=== PATIENT | female | born 1960 | race Hispanic/Latino ===

== ENCOUNTER → 2017-10-26 | Outpatient (CLI) | payer MEDICARE ==
[~2017-10-26] MED LIST: AUGMENTIN 500-1 EACH PO; CARAFATE1 GM PO; CARVEDILOL3.125 MG PO; CLOPIDOGREL75 MG PO; CYCLOBENZAPRINE10 MG PO; CYMBALTA20 MG PO; DEPAKOTE ER500 MG PO; DICYCLOMINE HCL10 MG PO; DIVALPROEX SOD500 M1 PO; FLORASTOR250 MG PO; FLUDROCORTISON0.1 MG PO; GABAPENTIN300 MG PO; HUMALOG100 UNITS/ SC; LEVEMIR100 UNIT/1 SC; LIDODERM700 MG TOP; LISINOPRIL10 MG PO; LYRICA75 MG PO; MIDODRINE HCL2.5 MG PO; NEPHRO-VITE TABL1 EA PO; NEXIUM40 MG PO; NOVOLIN 70100 UNITS/ SQ; NOVOLOG MI100 UNIT/1 SC; ONDANSETRO4 MG/UDTAB PO; PANTOPRAZOLE SO40 MG PO; PEPCID20 MG PO; PHOSLO667 MG PO; PLAVIX75 MG PO; PROMETHAZINE HC25 M1 PO; PROMETHAZINE12.5 M1 PO; RENVELA0.8 GM PO; RENVELA800 MG PO; ROPINIROLE HC0.25 MG PO; ROPINIROLE HCL12 MG PO; SIMVASTATIN10 MG PO; SIMVASTATIN20 MG PO; SODIUM BICARBO650 MG PO; SUMATRIPTAN SUC25 MG PO; TRANSDERM-SCOP1 EACH TD; ULTRACET TABLE1 EACH PO; ULTRAM50 MG PO; VITAMIN D-32000 UNIT PO
--- NOTE | 2017-10-26 12:44 | Diagnostic Imaging Report ---
PROCEDURE:ANKLE 3+ VIEWS LEFT TECHNIQUE:AP, oblique, and lateral views of the left ankle INDICATION:Fracture followup COMPARISON:Left ankle radiographs 09/21/2017. FINDINGS: No significant interval change in healing or alignment since the distal left malleolus fracture. Healed fracture the medial malleolus is also grossly unchanged. Tibial plafond and talar dome are intact. No new fractures. Joint spaces and soft tissues are unremarkable. CONCLUSION: No significant interval change in healing or alignment of the incompletely healed lateral malleolar fracture compared to 09/21/2017. Dictated by: Steven Beltran M.D. on 10/26/2017 at 12:52 Electronically approved by: Steven Beltran M.D. on 10/26/2017 at 12:52
== END ==
LOC: RAD 12:00
PROVIDERS: ATTEND Podiatrist Foot & Ankle Surgery
DX: S82.62XD Displaced fracture of lateral malleolus of left fibula, subsequent encounter for closed fracture with routine healing (principal)

== ENCOUNTER → 2017-11-19 | Outpatient (CLI) | payer MEDICARE ==
[~2017-11-19] MED LIST changes: +CALCITRATE200 MG PO; +GEMFIBROZIL600 MG PO; +LABETALOL HCL100 MG PO; +NOVOLOG100 UNITS1 SQ; +OMEPRAZOLE40 MG PO; +TYLENOL WITH C1 EACH PO
--- NOTE | 2017-11-19 18:17 | Diagnostic Imaging Report ---
PROCEDURE:ANKLE 3+ VIEWS LEFT TECHNIQUE:3 views of the left ankle (AP, lateral, and oblique) INDICATION:Followup left ankle fracture. COMPARISON:Multiple priors, most recently 09/21/2018 and 10/26/2017. FINDINGS: Left distal malleolar fracture with no change in healing or alignment. Healed fracture of the medial malleolus, unchanged. No new fractures. Joint spaces are intact. Talar dome is intact. CONCLUSION: No significant interval change. Dictated by: Solomon López M.D. on 11/19/2017 at 18:26 Electronically approved by: Solomon López M.D. on 11/19/2017 at 18:26
== END ==
LOC: RAD 16:48
PROVIDERS: ATTEND Podiatrist Foot & Ankle Surgery
DX: S82.62XK Displaced fracture of lateral malleolus of left fibula, subsequent encounter for closed fracture with nonunion (principal)

== ENCOUNTER 2017-12-22 10:56 | Inpatient (IN) | payer MEDICARE ==
[~2017-12-22] VITALS: Ht 139.7 cm; Wt 81.6 kg
[~2017-12-22 10:56] MED LIST changes: -CALCITRATE200 MG PO; -GEMFIBROZIL600 MG PO; -LABETALOL HCL100 MG PO; -NOVOLOG100 UNITS1 SQ; -OMEPRAZOLE40 MG PO; -TYLENOL WITH C1 EACH PO
--- OUTSIDE RECORDS SUMMARY | 2017-12-22 10:58 | XMS REPORT ---
Author Author [facility] Address Unknown Phone Unavailable Care Team Providers Care Smocker Name Role Phone VICKY CABALLERO Unavailable Unavailable FARAZ BUSTILLO Unavailable Unavailable ANDREW JEREZ Unavailable Unavailable Problems This patient has no known problems. Allergies, Adverse Reactions, Alerts This patient has no known allergies or adverse reactions. Medications This patient has no known medications. Results Test Description Test Time Test Comments Text Results Atomic Results Result Comments ANKLE 3+ VIEWS LEFT [place] [address] Patient Name: TAI GRANT MR #: [id number] : 1960 Age/Sex: 57/F Req #: [id number] Adm Physician: Ordered by: VICKY CABALLERO DPM Report #: [id number] Location: [facility] Room/Bed: Procedure: [id number] DX/ANKLE 3+ VIEWS LEFT Exam Date: 11/19/17 Exam Time: 1705 REPORT STATUS: Signed PROCEDURE: ANKLE 3+ VIEWS LEFT TECHNIQUE: 3 views of the left ankle (AP, lateral, and oblique) INDICATION: Followup left ankle fracture. COMPARISON: Multiple priors, most recently 09/21/2018 and 10/26/2017. FINDINGS: Left distal malleolar fracture with no change in healing or alignment. Healed fracture of the medial malleolus, unchanged. No new fractures. Joint spaces are intact. Talar dome is intact. CONCLUSION: No significant interval change. Dictated by: Benny López M.D. on 11/19/2017 at 18:26 Electronically approved by: Benny López M.D. on 11/19/2017 at 18:26 Dictated By: BENNY LÓPEZ MD 25 Transcribed By: EVELYNE on 11/19/171825 COPY TO: VICKY CABALLERO DPM ANKLE 3+ VIEWS LEFT [place] [address] Patient Name: TAI GRANT MR #: [id number] : 1960 Age/Sex: 57/F Req #: [id number] Adm Physician: Ordered by: VICKY CABALLERO DPM Report #: [id number] Location: [facility] Room/Bed: Procedure: [id number] DX/ANKLE 3+ VIEWS LEFT Exam Date: 10/26/17 Exam Time: 1230 REPORT STATUS: Signed PROCEDURE: ANKLE 3+ VIEWS LEFT TECHNIQUE: AP, oblique, and lateral views of the left ankle INDICATION: Fracture followup COMPARISON: Left ankle radiographs 09/21/2017. FINDINGS: No significant interval change in healing or alignment since the distal left malleolus fracture. Healed fracture the medial malleolus is also grossly unchanged. Tibial plafond and talar dome are intact. No new fractures. Joint spaces and soft tissues are unremarkable. CONCLUSION : No significant interval change in healing or alignment of the incompletely healed lateral malleolar fracture compared to 09/21/2017. Dictated by: Steven Toussaint M.D. on 10/26/2017 at 12:52 Electronically approved by: Steven Toussaint M.D. on 10/26/2017 at 12:52 Dictated By: STEVEN TOUSSAINT MD 125 COPY TO: VICKY CABALLERO DPM ANKLE 3+ VIEWS LEFT [place] [address] Patient Name: TAI GRANT MR #: [id number] : 1960 Age/Sex: 57/F Req #: [id number] Adm Physician: Ordered by: VICKY CABALLERO DPM Report #: [id number] Location: [facility] Room/Bed: Procedure: [id number] DX/ANKLE 3+ VIEWS LEFT Exam Date: 09/21/17 Exam Time: 0940 REPORT STATUS: Signed PROCEDURE: ANKLE 3+ VIEWS LEFT INDICATION: Trauma COMPARISON: Bilateral ankle radiographs 08/27/2017. FINDINGS: No appreciable interval change in the appearance of the previously described incompletely healed fracture of the distal aspect of the lateral malleolus. Healed fracture of the medial malleolus is similarly unchanged. The tibial plafond and talar dome are intact. Joint spaces and soft tissues are unremarkable. CONCLUSION: Incompletely healed fracture of the distal aspect of the lateral malleolus is unchanged in appearance relative to 08/27/2017. Dictated by: Orlin Leung M.D. on 09/21/2017 at 10:26 Electronically approved by: Orlin Leung M.D. on 09/21/2017 at 10:26 Dictated By: ORLIN LEUNG MD 1026 Transcribed By: EVELYNE on 09/21/17 1026 COPY TO: VICKY CABALLERO DPM ANKLE COMPLETE BILATERAL [place] [address] Patient Name: TAI GRANT MR #: [id number] : 1960 Age/Sex: 57/F Req #: [id number] Adm Physician: Ordered by: VICKY CABALLERO DPM Report #: [id number] Location: [facility] Room/Bed: Procedure: [id number] DX/ANKLE COMPLETE BILATERAL Exam Date: 08/27/17 Exam Time: 1220 REPORT STATUS: Signed PROCEDURE: ANKLE COMPLETE BILATERAL TECHNIQUE: INDICATION: Pain. COMPARISON: Left Ankle 3 views 11/05/2016. FINDINGS: Remote trauma of the medial malleolus and lateral malleolus of the left ankle. Fracture line is still visualized in the distal left fibula, best visualized on the oblique projection No acute displaced fracture or dislocation. No expansile or lytic or sclerotic lesion. The soft tissues are unremarkable. CONCLUSION: Remote trauma of the left ankle. Persistent visualization of the distal fibula fracture line may represent nonunion. No acute displaced fracture. Dictated by: Jace Yusuf M.D. on 2016 at 13:27 Electronically approved by: Jace Yusuf M.D. on 2016 at 13:27 Dictated By: JACE YUSUF MD 1327 Transcribed By: EVELYNE on 08/27/17 1327 COPY TO: VICKY CABALLERO DPM CHEST 2 VIEWS [place] [address] Patient Name: TAI GRANT MR #: [id number] : 1960 Age/Sex: 57/F Req #: [id number] Adm Physician: Ordered by: FARAZ BUSTILLO MD Report #: [id number] Location: ER Room/Bed: Procedure: [id number] DX/CHEST 2 VIEWS Exam Date: 06/21/17 Exam Time : 1936 REPORT STATUS: Signed EXAM: Chest x-ray portable, AP DATE: June 21, 2017 Time stamp on exam: 1937 hours INDICATION: Shortness of breath , weakness COMPARISON: None available A preliminary report was provided by Dr. Stack June 21, 2017 at 2033 hours. FINDINGS: LINES/TUBES: None LUNGS: Bibasilar atelectasis, mild bronchial thickening and vascular congestion PLEURA: No effusions or pneumothorax. HEART AND MEDIASTINUM : The heart is at the upper limits of normal in size. BONES AND SOFT TISSUES: No acute findings. IMPRESSION: Bibasilar atelectasis, mild bronchial thickening and vascular congestion. Signed by: Dr. Cj Stack M.D. on 07/06/2017 10:58 PM Dictated By: CJ STACK MD 57 Transcribed By: ROBI on 07/06/172257 COPY TO: FARAZ BUSTILLO MD SP LUMBAR, COMPLETE MIN 4VW [place] [address] Patient Name: TAI GRANT MR #: [id number] : 1960 Age/Sex: 57/F Req #: [id number] Adm Physician: Ordered by: MERI LEE, ANDREW Ron MD Report #: [id number] Location: RAD Room/Bed: ____ Procedure: [id number] DX/SP LUMBAR, COMPLETE MIN 4VW Exam Date: Exam Time: 913 REPORT STATUS: Signed PROCEDURE: SP LUMBAR, COMPLETE MIN 4VW TECHNIQUE: AP, lateral, coned-down lateral and bilateral oblique views lumbar spine. INDICATION: Low back pain COMPARISON: [facility], CT, CT ABDOMEN/PELVIS W, 2015, 9:43. [facility], DX, LUMBAR 3 VIEW, 11/05/2016, 21:59. FINDINGS: 5 [id number] lumbar vertebral bodies. Vertebral body height is maintained. There are mild endplate degenerative changes from L1- L5 with relative preservation of disc space height. Facets are patent, without significant arthropathy. Patent neural foramen. Straightening of the spine, with loss of normal cervical lordosis. Regional skeleton is intact. Cholecystectomy clips. Right kidney embolization coils. CONCLUSION: 1. Mild multilevel degenerative disc disease. 2. Loss of normal cervical lordosis. Dictated by: Danni Nathan M.D. on 06/15/2017 at 10: 04 Electronically approved by: Danni Nathan M.D. on 06/15/2017 at 10:04 Dictated By: DANNI NATHAN MD 1004 Transcribed By: EVELYNE on 06/15/17 1004 COPY TO: ANDREW JEREZ
--- OUTSIDE RECORDS SUMMARY | 2017-12-22 10:58 | XMS REPORT | Clinical Summary ---
Author Author [facility] Organization [facility] Address Unknown Phone Unavailable Care Team Providers Care Operations Manager Station Name Role Phone Theodore Patten MD PCP Allergies Active Allergy Reactions Severity Noted Date Comments Nifedipine Anaphylaxis High 12/14/2016 Current Medications Prescription Sig. Disp. Refills Start End Date Status Date clopidogrel (PLAVIX) 75 Take 75 mg by mouth every 11/03/19 Active mg tablet morning. 17 divalproex (DEPAKOTE) 500 Take 500 mg by mouth 11/21/19 Active MG 24 hr tablet nightly. 17 cyclobenzaprine Take 5 mg by mouth 3 10/19/20 Active (FLEXERIL) 5 mg tablet (three) times a day as 16 needed for muscle spasms. ergocalciferol (VITAMIN Take 50,000 Units by Active D2) 50,000 unit capsule mouth once a week. metoclopramide (REGLAN) 5 Take 5 mg by mouth 3 Active MG tablet (three) times a day before meals. calcium acetate (PHOSLO) Take 1,334 mg by mouth 3 Active 667 mg capsule (three) times a day with meals. lidocaine (LIDODERM) 5 % Place 1 patch on the skin Active daily. Remove & Discard patch within 12 hours or as directed by midsloanerine (PROAMATINE) 10 Take 10 mg by mouth 3 Active MG tablet (three) times a week. Take on Wednesday, Wednesday and Wednesday for Low BP during dialysis traMADol (ULTRAM) 50 mg Take 50 mg by mouth every Active tablet 6 (six) hours as needed (Pain). ondansetron (ZOFRAN) 4 MG Take 4 mg by mouth every Active tablet 6 (six) hours as needed for nausea or vomiting. clonIDINE (CATAPRES) 0.1 Take 0.1 mg by mouth Active MG tablet every 4 (four) hours as needed for high blood pressure (SBP > 170 or DBP > 110). dicyclomine (BENTYL) 10 Take 10 mg by mouth daily Active MG capsule as needed (abdominal cramps). MYRBETRIQ 25 mg tablet Take 25 mg by mouth 12/19/19 Active extended release 24 hr nightly. 17 acetaminophen-codeine Take 1 tablet by mouth 11/06/19 Active (TYLENOL WITH CODEINE #3) every 6 (six) hours as 17 300-30 mg per tablet needed for pain. esomeprazole (NexIUM) 40 Take 40 mg by mouth daily 11/03/19 Active MG capsule before breakfast. 17 gabapentin (NEURONTIN) Take 300 mg by mouth 2 11/21/19 Active 300 mg capsule (two) times a day. 17 rOPINIRole (REQUIP) 0.25 Take 0.25 mg by mouth 3 10/06/20 Active MG tablet (three) times a day. 16 estradiol (ESTRACE) 0.5 Take 0.5 mg by mouth 12/21/19 Discontin MG tablet every morning. 17 ued dkrfmivstk-otvlojq-K-mefo Take 1 Dose by mouth 12/21/19 Discontin late (L-METHYL-MC NAC) daily with lunch. 17 ued 600-2-6 mg tablet dronabinol (MARINOL) 2.5 Take 2.5 mg by mouth 3 12/21/19 Discontin MG capsule (three) times a week. 17 ued Wednesday, Wednesday and Wednesday progesterone (PROMETRIUM) Take 100 mg by mouth 12/21/19 Discontin 100 MG capsule every evening. 17 ued nicotine (NICODERM CQ) 7 Place 1 patch on the skin 12/21/19 Discontin mg/24 hr daily. 17 ued pantoprazole (PROTONIX) Take 40 mg by mouth every 12/21/19 Discontin 40 MG EC tablet morning. 17 ued amLODIPine (NORVASC) 5 mg Take 5 mg by mouth every 12/21/19 Discontin tablet morning. 17 ued alpha lipoic acid 100 mg Take 100 mg by mouth 2 12/29/19 Discontin capsule (two) times a day with 17 ued meals. sevelamer (RENVELA) 800 Take 1,600 mg by mouth 2 12/29/19 Discontin mg tablet (two) times a day with 17 ued meals. epoetin shilpi (PROCRIT) Inject 3,000 Units under 12/21/19 Discontin 3,000 unit/mL injection the skin 3 (three) times 17 ued a week. With dialysis krill oil 500 mg capsule Take 500 mg by mouth 2 12/21/19 Discontin (two) times a day. 17 ued melatonin 3 mg tablet Take 6 mg by mouth 12/21/19 Discontin nightly. 17 ued acetaminophen (TYLENOL) Take 650 mg by mouth 12/21/19 Discontin 325 MG tablet every 4 (four) hours as 17 ued needed for mild pain or fever. alum-mag hydroxide-simeth Take 30 mL by mouth 4 12/21/19 Discontin (MAALOX) 200-200-20 mg/5 (four) times a day before 17 ued mL suspension meals and nightly. loperamide (IMODIUM) 2 mg Take 2 mg by mouth 4 12/21/19 Discontin capsule (four) times a day as 17 ued needed for diarrhea. magnesium hydroxide 400 Take 30 mL by mouth 4 12/21/19 Discontin mg/5 mL suspension (four) times a day as 17 ued needed (Constipation). bisacodyl (DULCOLAX) 5 mg Take 10 mg by mouth daily 12/21/19 Discontin EC tablet as needed for 17 ued constipation. ketoconazole (NIZORAL) 2 Apply 1 application 12/21/19 Discontin % shampoo topically daily. Apply to 17 ued damp skin, lather, leave on 5 minutes, and rinse insulin lispro (HumaLOG) Inject 0-8 Units under 12/21/19 Discontin 100 unit/mL injection the skin 3 (three) times 17 ued a day before meals. SS BS 150 - 179=0 units BS 180 - 250=2 units BS 251 - 300=4 units BS 301 - 350=6 units BS 351 - 400=8 units NOVOLOG MIX 70-30 100 Inject 26 Units under the 10/20/20 12/29/19 Discontin unit/mL (70-30) injection skin 3 (three) times a 16 17 ued day before meals. LEVEMIR 100 unit/mL Inject 16 Units under the 10/20/20 12/29/19 Discontin injection skin every morning. 60 16 17 ued units @ bedtime HYDROcodone-acetaminophen Take 1 tablet by mouth 12/19/19 12/21/19 Discontin (NORCO) 7.5-325 mg per every 8 (eight) hours as 17 17 ued tablet needed for moderate pain (score 4-6). levothyroxine (SYNTHROID, Take 100 mcg by mouth 12/19/19 12/21/19 Discontin LEVOXYL) 100 mcg tablet daily before breakfast. 17 17 ued metoprolol tartrate Take 25 mg by mouth daily 12/19/19 12/21/19 Discontin (LOPRESSOR) 25 mg tablet before breakfast. 17 17 ued LYRICA 75 mg capsule Take 75 mg by mouth 2 11/03/19 12/29/19 Discontin (two) times a day. 17 17 ued sertraline (ZOLOFT) 50 MG Take 50 mg by mouth daily 12/19/19 12/21/19 Discontin tablet before breakfast. 17 17 ued amlodipine-benazepril Take 1 capsule by mouth 10/06/20 12/29/19 Discontin (LOTREL 5-20) 5-20 mg per every morning. 16 17 ued capsule insulin lispro (HumaLOG) Inject 0-5 Units under 10 mL 12 12/29/19 100 unit/mL injection the skin 3 (three) times 17 17 a day before meals for 30 days. Active Problems Problem Noted Date Hypotension 12/21/2016 Encounters Date Type Specialty Care Team Description 12/21/2016 [facility] General Surgery Willy Frye MD Hypotension, unspecified - Encounter Mariam Young MD hypotension type (Primary 12/28/2016 Dx) after 12/21/2016 Family History Medical History Relation Name Comments Diabetes Brother Heart attack Father Aneurysm Mother Cataracts Mother Heart attack Mother Diabetes Sister Heart attack Sister Relation Name Status Comments Brother Father Mother Sister Social History Tobacco Use Types Packs/Day Years Used Date Never Smoker Alcohol Use Drinks/Week oz/Week Comments No Sex Assigned at Date Recorded Not on file Last Filed Vital Signs Vital Sign Reading Time Taken Blood Pressure 143/67 12/28/2016 4:48 PM [facility] Pulse 81 12/28/2016 4:48 PM [facility] Temperature 36.8 C (98.2 F) 12/28/2016 4:48 PM [facility] Respiratory Rate 20 12/28/2016 4:48 PM [facility] Oxygen Saturation 100% 12/28/2016 4:48 PM [facility] Inhaled Oxygen - - Concentration Weight 72.6 kg (160 lb) 12/22/2016 9:00 AM [facility] Height 144.8 cm (4' 9") 12/22/2016 9:00 AM [facility] Body Mass Index 34.62 12/22/2016 9:00 AM [facility] Plan of Treatment Health Maintenance Due Date Last Done Comments PAP SMEAR 1983 COLONOSCOPY 2012 MAMMOGRAM 2012 INFLUENZA VACCINE 05/25/2017 Procedures Procedure Name Priority Date/Time Associated Diagnosis Comments HEMODIALYSIS Routine 12/28/2016 12:05 AM [facility] HEMODIALYSIS Routine 12/25/2016 12:05 AM [facility] HEMODIALYSIS Routine 12/23/2016 1:50 PM [facility] HEMODIALYSIS Routine 12/23/2016 11:21 AM [facility] after 12/21/2016 Results * POC glucose (12/28/2016 4:53 PM) Only the most recent of 27 results within the time period is included. Component Value Ref Range POC glucose 137 (H) 65 - 99 mg/dL Comment: Meter ID: [id number] Medical Chief Technician: Da Bustillos Specimen Performing Laboratory [facility] DEPARTMENT OF PATHOLOGY AND GENOMIC MEDICINE [address] [place] [address] * Estimated GFR (12/28/2016 6:00 AM) Only the most recent of 8 results within the time period is included. Component Value Ref Range GFR Non Af Amer 6 (A) mL/min/1.73 m2 GFR Af Amer 7 (A) mL/min/1.73 m2 Comment: Chronic kidney disease: <60 mL/min/1.73m2 Kidney failure: <15 mL/min/1.73m2 The estimated GFR is calculated from the IDMS-traceable Modification of Diet in Renal Disease Equation. The accuracy of the calculation is poor when the creatinine is normal. Calculated values >90 mL/min/1.73m2 are not reported. This equation has not been validated in children (<18 years), women, the elderly (>70 years), or ethnic groups other than Caucasians and Americans. Specimen Performing Laboratory Plasma specimen [facility] DEPARTMENT OF PATHOLOGY AND GENOMIC MEDICINE [address] [place] [address] * CBC with platelet and differential (12/28/2016 6:00 AM) Only the most recent of 7 results within the time period is included. Component Value Ref Range WBC 7.98 4.50 - 11.00 k/uL RBC 2.77 (L) 4.20 - 5.50 m/uL HGB 8.5 (L) 12.0 - 16.0 g/dL HCT 26.1 (L) 37.0 - 47.0 % MCV 94.2 82.0 - 100.0 fL MCH 30.7 27.0 - 34.0 pg MCHC 32.6 31.0 - 37.0 g/dL RDW - SD 48.8 37.0 - 55.0 fL MPV 9.2 8.8 - 13.2 fL Platelet count 208 150 - 400 k/uL Nucleated RBC 0.00 /100 WBC Neutrophils 69.3 (H) 39.0 - 69.0 % Lymphocytes 16.2 (L) 25.0 - 45.0 % Monocytes 8.1 0.0 - 10.0 % Eosinophils 4.5 0.0 - 5.0 % Basophils 0.3 0.0 - 1.0 % Immature granulocytes 1.6 (H)Comment: "Immature granulocytes" 0.0 - 1.0 % (promyelocytes, myelocytes, metamyelocytes) Specimen Performing Laboratory Blood [facility] DEPARTMENT OF PATHOLOGY AND GENOMIC MEDICINE [address] [place] [address] * Basic metabolic panel (12/28/2016 6:00 AM) Only the most recent of 4 results within the time period is included. Component Value Ref Range Sodium 135 135 - 148 mEq/L Potassium 6.2 (HH) 3.5 - 5.0 mEq/L Comment: Results called to and read back by KRISTAL MCCORMICK , 3 SURG at 12/28/2016 07:00 by DP. Chloride 97 (L) 98 - 112 mEq/L CO2 24 24 - 31 mEq/L Anion gap 14 7 - 15 mEq/L Comment: Starting from January , anion gap calculation no longer incorporates potassium. Please note the change. BUN 49 (H) 6 - 20 mg/dL Creatinine 7.3 (H) 0.5 - 0.9 mg/dL Glucose 104 (H) 65 - 99 mg/dL Calcium 7.8 (L) 8.3 - 10.2 mg/dL Specimen Performing Laboratory Plasma specimen [facility] DEPARTMENT OF PATHOLOGY AND GENOMIC MEDICINE [address] [place] [address] * Phosphorus level (12/26/2016 5:00 AM) Only the most recent of 5 results within the time period is included. Component Value Ref Range Phosphorus 2.6 2.4 - 4.5 mg/dL Specimen Performing Laboratory Plasma specimen [facility] DEPARTMENT OF PATHOLOGY AND GENOMIC [facility] [address] [place] [address] * Magnesium level (12/26/2016 5:00 AM) Only the most recent of 4 results within the time period is included. Component Value Ref Range Magnesium 2.1 1.6 - 2.6 mg/dL Specimen Performing Laboratory Plasma specimen [facility] DEPARTMENT OF PATHOLOGY AND [facility] [address] [place] [address] * CT Chest Wo Contrast Abdomen Wo Contrast Pelvis Wo Contrast (12/25/2016 3:30 PM) Specimen Performing Laboratory [facility] [address] [place] [address] Narrative EXAMINATION:CT CHEST WO CONTRAST ABDOMEN WO CONTRAST PELVIS WO CONTRAST CLINICAL HISTORY: 56 years FemaleABDOMINAL PAIN TECHNIQUE:Multiple axial images of the chest, abdomen, and pelvis were obtained without intravenous contrast. The lack of intravenous contrast reduces the sensitivity of detecting solid organ disease. Sagittal and coronal computerized reformatted images were obtained. CT imaging was performed with iterative reconstruction techniques and/or automated exposure control to reduce radiation dose. COMPARISON:December 24, 2016 FINDINGS: There is abundant mediastinal fat. A left anterior mediastinal node measuring 7 mm in short axis is present. A right paratracheal node with a central fatty hilum measuring 9 mm in short axis is present. There is coronary artery calcification. Heart size is within normal limits. The distal esophagus appears mildly dilated. The peggy are not well assessed without contrast. The right hilum appears mildly prominent. The lungs demonstrate atelectasis at both lung bases with groundglass opacity in the right lower lobe and a small nodular opacity measuring approximately 7 mm in maximum dimension. Follow-up will be needed. There is also dependent scarring or atelectasis. Some thickening along the right major fissure is present and mild pleural thickening and nodularity in both posterior costophrenic sulci is present greater on the left where an approximately 7 mm and adjacent 4 mm opacity is noted no additional findings of significance are visualized. IMPRESSION: 1. 7 mm vague groundglass density along the major fissure adjacent is appears segment of the right lower lobe. 2. Mild bibasilar mainly atelectasis greater on the left with mild pleural changes on both sides probably mainly atelectatic follow-up to ensure clearing is recommended. 3. Minimal pleural fluid or pleural thickening on the left. CT abdomen and pelvis: Done without intravenous or gastrointestinal contrast: The liver and spleen appear large the spleen measures approximately 16 to 17 cm in length the liver approximately 20 cm in length. Both are homogeneous in texture. The adrenal glands appear within normal limits. The pancreas appears unremarkable. There are postop changes in the stomach. There are clips in the gallbladder fossa. The kidneys demonstrate a nonobstructing upper pole calculus on the left in the 3 to 4 mm range. Multiple metallic densities project within the collecting system on the right no obstruction is identified on either side. The appendix is not visualized. No inflammatory changes are identified involving bowel. There is no evidence of bowel obstruction. There is scattered diverticulosis involving the colon. The uterus and ovaries appear unremarkable. No free fluid is noted. The bladder wall appears mildly thickened. IMPRESSION: 1. Hepatosplenomegaly. 2. No acute findings in the abdomen are identified. Pole metallic densities in the right renal hilum are noted. No obstruction is noted. 3. Nonobstructing left intrarenal calculus [id number] Procedure Note Hm Interface, Radiology Results Incoming - 12/25/2016 4:00 PM [facility] EXAMINATION: CT CHEST WO CONTRAST ABDOMEN WO CONTRAST PELVIS WO CONTRAST CLINICAL HISTORY: 56 years Female ABDOMINAL PAIN TECHNIQUE: Multiple axial images of the chest, abdomen, and pelvis were obtained without intravenous contrast. The lack of intravenous contrast reduces the sensitivity of detecting solid organ disease. Sagittal and coronal computerized reformatted images were obtained. CT imaging was performed with iterative reconstruction techniques and/or automated exposure control to reduce radiation dose. COMPARISON: December 24, 2016 FINDINGS: There is abundant mediastinal fat. A left anterior mediastinal node measuring 7 mm in short axis is present. A right paratracheal node with a central fatty hilum measuring 9 mm in short axis is present. There is coronary artery calcification. Heart size is within normal limits. The distal esophagus appears mildly dilated. The peggy are not well assessed without contrast. The right hilum appears mildly prominent. The lungs demonstrate atelectasis at both lung bases with groundglass opacity in the right lower lobe and a small nodular opacity measuring approximately 7 mm in maximum dimension. Follow-up will be needed. There is also dependent scarring or atelectasis. Some thickening along the right major fissure is present and mild pleural thickening and nodularity in both posterior costophrenic sulci is present greater on the left where an approximately 7 mm and adjacent 4 mm opacity is noted no additional findings of significance are visualized. IMPRESSION: 1. 7 mm vague groundglass density along the major fissure adjacent is appears segment of the right lower lobe. 2. Mild bibasilar mainly atelectasis greater on the left with mild pleural changes on both sides probably mainly atelectatic follow-up to ensure clearing is recommended. 3. Minimal pleural fluid or pleural thickening on the left. CT abdomen and pelvis: Done without intravenous or gastrointestinal contrast: The liver and spleen appear large the spleen measures approximately 16 to 17 cm in length the liver approximately 20 cm in length. Both are homogeneous in texture. The adrenal glands appear within normal limits. The pancreas appears unremarkable. There are postop changes in the stomach. There are clips in the gallbladder fossa. The kidneys demonstrate a nonobstructing upper pole calculus on the left in the 3 to 4 mm range. Multiple metallic densities project within the collecting system on the right no obstruction is identified on either side. The appendix is not visualized. No inflammatory changes are identified involving bowel. There is no evidence of bowel obstruction. There is scattered diverticulosis involving the colon. The uterus and ovaries appear unremarkable. No free fluid is noted. The bladder wall appears mildly thickened. IMPRESSION: 1. Hepatosplenomegaly. 2. No acute findings in the abdomen are identified. Pole metallic densities in the right renal hilum are noted. No obstruction is noted. 3. Nonobstructing left intrarenal calculus [id number] * XR Chest 1 Vw Portable (12/24/2016 5:38 PM) Only the most recent of 4 results within the time period is included. Specimen Performing Laboratory [facility] [address] [place] [address] Narrative EXAMINATION:XR CHEST 1 VW PORTABLE CLINICAL HISTORY:Increased Respiratory Distress COMPARISON:December 23, 2016 IMPRESSION: There is a right IJ catheter with its tip spur vena cava.There is cardiomegaly.Mediastinum is slightly widened.Pulmonary vessels are minimally prominent but there is no infiltrate. [facility]-[id number] Procedure Note Hm Interface, Radiology Results Incoming - 12/24/2016 5:44 PM [facility] EXAMINATION: XR CHEST 1 VW PORTABLE CLINICAL HISTORY: Increased Respiratory Distress COMPARISON: December 23, 2016 IMPRESSION: There is a right IJ catheter with its tip spur vena cava. There is cardiomegaly. Mediastinum is slightly widened. Pulmonary vessels are minimally prominent but there is no infiltrate. [facility]-[id number] * Troponin (12/24/2016 5:25 AM) Only the most recent of 5 results within the time period is included. Component Value Ref Range Troponin <0.300 0.000 - 0.300 ng/mL Comment: 0.30 - 1.49 ng/ml May indicate increased risk of acute coronary syndrome. >=1.5 ng/ml Consistent with acute myocardial infarction. The diagnostic value of a single normal or non-diagnostic result is questionable. Serial samples at 2-6 hour intervals are required to rule out acute myocardial injury. Specimen Performing Laboratory Plasma specimen [facility] DEPARTMENT OF PATHOLOGY AND GENOMIC MEDICINE [address] [place] [address] * Comprehensive metabolic panel (12/24/2016 5:25 AM) Only the most recent of 4 results within the time period is included. Component Value Ref Range Sodium 141 135 - 148 mEq/L Potassium 4.1 3.5 - 5.0 mEq/L Chloride 100 98 - 112 mEq/L CO2 26 24 - 31 mEq/L Anion gap 15 7 - 15 mEq/L Comment: Starting from January , anion gap calculation no longer incorporates potassium. Please note the change. BUN 21 (H) 6 - 20 mg/dL Creatinine 4.6 (H) 0.5 - 0.9 mg/dL Glucose 110 (H) 65 - 99 mg/dL Calcium 6.8 (L) 8.3 - 10.2 mg/dL Protein 6.1 (L) 6.3 - 8.3 g/dL Comment: 4.6-7.0 g/dL 1 week 4.4-7.6 g/dL 7 months-1year 5.1-7.3 g/dL 1-2 years 5.6-7.5 g/dL >3 years 6.0-8.0 g/dL 18-150 6.3-8.3 g/dL Albumin 3.7 3.5 - 5.0 g/dL A/G ratio 1.5 0.7 - 3.8 Alkaline phosphatase 89 35 - 104 U/L AST 7 (L) 10 - 35 U/L ALT 7 5 - 50 U/L Total bilirubin 0.2 0.0 - 1.2 mg/dL Specimen Performing Laboratory Plasma specimen [facility] DEPARTMENT OF PATHOLOGY AND GENOMIC MEDICINE [address] [place] [address] * Blood culture, aerobic & anaerobic (12/23/2016 9:40 PM) Component Value Ref Range Blood culture isolate No growth after 5 days of incubation. Comment: Specimen Information Specimen Source: Blood Specimen Site: Line, Central Specimen Performing Laboratory Blood - Line, central [facility] DEPARTMENT OF PATHOLOGY AND GENOMIC MEDICINE [address] [place] [address] Narrative Collect before antibiotics given. Blood cultures should be ordered x2, with each set drawn from a different peripheral site.If unable to draw both sets from a peripheral site, one set may be drawn from a central line; an IV line should NEVER be used. * CT Head Wo Contrast (12/23/2016 8:15 PM) Specimen Performing Laboratory [facility] [address] [place] [address] Narrative EXAMINATION:CT HEAD WO CONTRAST CT IMAGING WAS PERFORMED WITH ITERATIVE RECONSTRUCTION TECHNIQUE AND/OR AUTOMATED EXPOSURE CONTROL TO REDUCE RADIATION DOSE. CLINICAL HISTORY:CONFUSION DELERIUMALTERED LOCUNEXPLAINED COMPARISON:CT brain 12/14/2016. FINDINGS: 1.There is no acute abnormality demonstrated. Specifically there is no hemorrhage, mass effect or acute infarction. 2. There are minimal if any nonspecific cerebral white matter microvascular changes. There is mild cerebral cortical volume loss. There is minimal atherosclerotic calcification in the distal internal carotid and vertebral arteries. 3.There is minimal mucosal thickening in the ethmoid and maxillary sinuses. IMPRESSION: No acute abnormality demonstrated and no change from December 14, 2016. [facility]-[id number] Procedure Note Interface, Radiology Results Incoming - 12/23/2016 8:23 PM [facility] [facility] EXAMINATION: CT HEAD WO CONTRAST CT IMAGING WAS PERFORMED WITH ITERATIVE RECONSTRUCTION TECHNIQUE AND/OR AUTOMATED EXPOSURE CONTROL TO REDUCE RADIATION DOSE. CLINICAL HISTORY: CONFUSION DELERIUM ALTERED LOC UNEXPLAINED COMPARISON: CT brain 12/14/2016. FINDINGS: 1.There is no acute abnormality demonstrated. Specifically there is no hemorrhage, mass effect or acute infarction. 2. There are minimal if any nonspecific cerebral white matter microvascular changes. There is mild cerebral cortical volume loss. There is minimal atherosclerotic calcification in the distal internal carotid and vertebral arteries. 3.There is minimal mucosal thickening in the ethmoid and maxillary sinuses. IMPRESSION: No acute abnormality demonstrated and no change from December 14, 2016. [facility]-[id number] * Lactic acid level (12/23/2016 5:45 PM) Component Value Ref Range Lactic acid 1.8 0.5 - 2.2 mmol/L Specimen Performing Laboratory Plasma specimen [facility] DEPARTMENT PATHOLOGY AND [address] [place] [address] * Arterial blood gas (12/23/2016 4:40 PM) Component Value Ref Range pH, arterial 7.45 7.35 - 7.45 pCO2, arterial 45 35 - 45 mmHg pO2, arterial 110 (H) 80 - 90 mmHg Bicarbonate, arterial 30.3 (H) 21.0 - 28.0 mmol/L Base excess, arterial 6 (H) -2 - 2 mEq/L O2 saturation, arterial 97 95 - 100 % Specimen Performing Laboratory Blood [facility] PATHOLOGY AND [address] [place] [address] * ECG 12 lead (12/23/2016 4:28 PM) Only the most recent of 2 results within the time period is included. Component Value Ref Range Ventricular rate 75 Atrial rate 75 OH interval 134 QRSD interval 84 QT interval 446 QTC interval 498 P axis 1 2 QRS axis 1 4 T wave axis 29 EKG impression Normal sinus rhythm-Prolonged QT-Abnormal ECG-In automated comparison with ECG of 21-DEC-2016 13:44,-QT has lengthened- Specimen Performing Laboratory [facility] MUSE [address] [place] [id number] * Hepatitis C antibody (12/23/2016 4:20 AM) Component Value Ref Range Hepatitis C Ab Non-reactive Non-reactive Specimen Performing Laboratory Blood [facility] DEPARTMENT PATHOLOGY AND [address] [place] [address] * Hepatitis B core antibody total (12/23/2016 4:20 AM) Component Value Ref Range Hepatitis B core total Ab Non-reactive Non-reactive Specimen Performing Laboratory Blood [facility] DEPARTMENT OF PATHOLOGY AND [facility] MEDICINE [address] [place] [id number] * Hepatitis B surface antibody (12/23/2016 4:20 AM) Component Value Ref Range Hepatitis B surface Ab Reactive (A) Non-reactive Specimen Performing Laboratory Blood [facility] DEPARTMENT OF PATHOLOGY AND GENOMIC MEDICINE [id number] [place] [address] [place] [id number] * Hepatitis B surface antigen (12/23/2016 4:20 AM) Component Value Ref Range Hepatitis B surface Ag Nonreactive Non-reactive Specimen Performing Laboratory Blood [facility] DEPARTMENT OF PATHOLOGY AND GENOMIC MEDICINE [id number] [place] [address] [place] [address] * Parathyroid hormone (12/23/2016 4:00 AM) Component Value Ref Range PTH 129 (H) 15 - 65 pg/mL Specimen Performing Laboratory Blood [facility] DEPARTMENT OF PATHOLOGY AND GENOMIC MEDICINE [address] [place] [address] [place] [id number] * Iron level (12/23/2016 4:00 AM) Component Value Ref Range Iron level 74 37 - 145 ug/dL Specimen Performing Laboratory Plasma specimen [facility] DEPARTMENT OF PATHOLOGY AND GENOMIC MEDICINE [id number] [place] [address] [place] [id number] * Ferritin level (12/23/2016 4:00 AM) Component Value Ref Range Ferritin level 1,088 (H) 13 - 150 ng/mL Specimen Performing Laboratory Plasma specimen [facility] DEPARTMENT OF PATHOLOGY AND GENOMIC MEDICINE [address] [place] [address] * ECG ED Preliminary Interpretation - NOT AN ORDER (12/22/2016 9:03 AM) Leeann Russ MD 12/22/20169:03 AM ECG ED Preliminary Interpretation - Not an Order Performed by: WILLY FRYE Authorized by: WILLY FRYE ECG reviewed by ED Physician in the absence of a theater company producer: yes Interpretation: Interpretation: normal Rate: ECG rate:69 ECG rate assessment: normal Rhythm: Rhythm: sinus rhythm QRS: QRS axis:Normal ST segments: ST segments:Non-specific T waves: T waves: normal * Creatine kinase, total (CPK) (12/21/2016 1:40 PM) Component Value Ref Range Creatine kinase 16 (L) 26 - 192 Specimen Performing Laboratory Blood [facility] DEPARTMENT OF PATHOLOGY AND GENOMIC MEDICINE [address] [place] [address] [place] [address] after 12/21/2016 Insurance Payer Benefit Subscriber ID Type Phone Address Plan / Group MEDICARE MEDICARE xxxxxxxxxx Medicare [place], [place] PART A AND B AARP AARP xxxxxxxxxxx [place] [address]
[2017-12-22] MEDS ORDERED: DEXTROSE 50% SYRINGE 50 ML IV STA (11:08)
[2017-12-22] MEDS ORDERED: SODIUM BICARBONATE 8.4% 50 ML VIAL IV STA (11:08)
[2017-12-22] MEDS ORDERED: ALBUTEROL SULF 0.083% NEB SOLN 3 ML NEB NEB STA (11:08)
[2017-12-22] MEDS ORDERED: INSULIN REGULAR, HUMAN 100 UNIT/1 ML 3ML VIAL IV ONE (11:15)
[2017-12-22] MEDS ORDERED: SODIUM BICARBONATE 8.4% INJ 50 ML SYR IV NR (11:30)
--- NOTE | 2017-12-22 12:10 | Diagnostic Imaging Report ---
PROCEDURE: CHEST SINGLE (PORTABLE) COMPARISON: 2 view chest 06/21/17 INDICATIONS: HYPERKALEMIA FINDINGS: Stable cardiomegaly. Pulmonary vascular markings are prominent, increased compared previous exam. Subtle ground glass opacities throughout each lung. No evidence of infiltrate. Costophrenic angles are sharp. No pneumothorax. No focal osseous lesions. CONCLUSION: Cardiomegaly and pulmonary vascular congestion. A component of pulmonary edema is suspected. Dictated by: Vibha Suarez M.D. on 12/22/2017 at 12:10 Electronically approved by: Vibha Suarez M.D. on 12/22/2017 at 12:10
[2017-12-22 12:11] LABS: BASOPHILS % 0.2 % (0.0-1.0); EOSINOPHILS # (AUTO) 0.2 (0.0-0.4); EOSINOPHILS % 3.2 % (0.0-6.0); LYMPHOCYTES # (AUTO) 0.9 (1.0-3.2); LYMPHOCYTES % 15.8 % (18.0-39.1); MEAN CORPUSCULAR HEMOGLOBIN 33.5 pg (28-32); MEAN CORPUSCULAR HGB CONC 30.8 g/dL (31-35); MEAN CORPUSCULAR VOLUME 108.8 fL (81-99); MONOCYTES # (AUTO) 0.6 (0.2-0.8); MONOCYTES % 10.6 % (4.4-11.3); NEUTROPHILS # (AUTO) 3.9 (2.1-6.9); PLATELET COUNT 147 x10e3/uL (140-360); RED BLOOD COUNT 1.94 x10e6/uL (3.6-5.1); RED CELL DISTRIBUTION WIDTH 19.5 % (11.7-14.4)
[2017-12-22 12:24] LABS: HEMOGLOBIN 6.5 g/dL (12.0-16.0)
[2017-12-22 12:25] LABS: HEMATOCRIT 21.1 % (34.2-44.1)
[2017-12-22 12:47] LABS: ALANINE AMINOTRANSFERASE 9 IU/L (0-55); ALBUMIN 3.3 g/dL (3.5-5.0); ALBUMIN/GLOBULIN RATIO 0.9 (0.8-2.0); ALKALINE PHOSPHATASE 149 IU/L (40-150); ANION GAP 21.6 mmol/L (8-16); BLOOD UREA NITROGEN 42 mg/dL (7-26); BUN/CREATININE RATIO 9 (6-25); CALCIUM 8.4 mg/dL (8.4-10.2); CARBON DIOXIDE 27 mmol/L (22-29); CHLORIDE 101 mmol/L (98-107); CREATINE KINASE 46 IU/L (29-168); CREATININE, SERUM 4.88 mg/dL (0.57-1.11); EST GLOMERULAR FILTRATION RATE 9 ML/MIN (60-); GLUCOSE 92 mg/dL (74-118); SODIUM 141 mmol/L (136-145)
[2017-12-22 12:54] LABS: POTASSIUM 8.6 mmol/L (3.5-5.1)
[2017-12-22] MEDS ORDERED: CALCIUM CHLORIDE 10% 1.36 MEQ/ML 10ML SYR IV STA (15:08)
[2017-12-22] MEDS ORDERED: SODIUM CHLORIDE 0.9% 250ML 250 ML IV ONE (15:45)
--- NOTE | 2017-12-22 16:36 | Consultation ---
DATE OF CONSULTATION: December 22, 2017 REASON FOR CONSULTATION: Hyperkalemia. Thank you for allowing us to participate in Ms. Avila's care. This is a 57-year-old female who has history of end-stage renal disease, presumed diabetic and hypertensive, end-organ damage, history of intermittent hyperkalemia. She was feeling poorly. Meanwhile, her dialysis unit near [facility]. called her to go to the ER siting high potassium. During evaluation here, K was 8.6, heart rate in the 60's currently, hemoglobin is 6.5. Dialysis unit staff has been contacted and pending treatment. She had some nausea and vomiting earlier. She has been dealing with chronic pain. I believe she is opiates. She is not sure exactly which. She also has restless leg syndrome and sees a pain specialist outside. 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 PAST MEDICAL HISTORY: Left upper extremity IV fistula. ESRD. Diabetic nephropathy. Hypertension. Nephrosclerosis. Anemia, presumably from CKD. Secondary hyperparathyroidism on binders. History of hypotension. Question migraines. HOME MEDICATIONS: 1. Coreg 3.125 daily b.i.d. 2. Plavix 75 daily. 3. Cyclobenzaprine 10 mg t.i.d. 4. Valproic acid 500 mg daily. 5. Cymbalta 20 mg daily 6. Nexium 40 mg daily. 7. Gabapentin 300 b.i.d. 8. Insulin. 9. Lisinopril 10 daily 10. Lyrica 75 daily. 11. Renvela 2.4 gram powder t.i.d. 12. Sumatriptan 25 mg daily. 13. Sodium bicarbonate 650 daily. SOCIAL HISTORY: Apparently not abusing alcohol or smoking. Lives in [facility]. FAMILY HISTORY: Hypertension. REVIEW OF SYSTEMS: CONSTITUTIONAL: Feels weak. NEUROLOGIC: Numbness and tingling in the hands. MUSCULOSKELETAL: Leg pain. CARDIAC: Denying angina or syncope. RESPIRATORY: Denies cough or hemoptysis. GI: No nausea or vomiting. The rest of the review is negative. PHYSICAL EXAMINATION GENERAL: Sitting up and appears slightly dyspneic. VITALS: Temperature is 97.4, pulse 61, blood pressure 135/67. HEENT: Slight facial puffiness. NECK: Thick, unable to see JVD. CHEST: Diminished breath sounds at the bases. CARDIAC: Normal heart tones. Sounds regular. ABDOMEN: Benign. EXTREMITIES: Trace edema. NEURO: Alert and appropriate. Speech is normal. Chest x-ray shows some congestion. Hemoglobin is 6.5, K is 8.6, serum CO2 of 27, creatinine 4.8, BUN 42, albumin 3.3. ASSESSMENT: 1. End-stage renal disease. 2. Hyperkalemia. 3. Severe anemia. 4. Fluid overload. PLAN: Hemodialysis on an urgent basis. with __2, potassium bath, Will transfuse 3 units of packed red blood cells. Request pain management evaluation. Consider stopping her lisinopril. Job#: [id number] GH MAME
--- OUTSIDE RECORDS SUMMARY | 2017-12-22 17:06 | XMS REPORT | Clinical Summary ---
Author Author [facility] Address Unknown Phone Unavailable Care Team Providers Care Nipple Maker Name Role Phone Theodore Patten MD PCP [...] Discontin MG tablet every morning. 17 ued [id number] Take 1 Dose by mouth 12/21/19 Discontin [...] Date Type Specialty Care Team Description 12/21/2016 [facility] General Surgery Willy Frye MD Hypotension, unspecified [...] Taken Blood Pressure 143/67 12/28/2016 4:48 PM CRANE OPERATOR CAB Pulse 81 12/28/2016 4:48 PM CRANE OPERATOR CAB Temperature 36.8 C (98.2 F) 12/28/2016 4:48 PM CRANE OPERATOR CAB Respiratory Rate 20 12/28/2016 4:48 PM CRANE OPERATOR CAB Oxygen Saturation 100% 12/28/2016 4:48 PM CRANE OPERATOR CAB Inhaled Oxygen - - Concentration Weight 72.6 kg (160 lb) 12/22/2016 9:00 AM CRANE OPERATOR CAB Height 144.8 cm (4' 9") 12/22/2016 9:00 AM CRANE OPERATOR CAB Body Mass Index 34.62 12/22/2016 9:00 AM CRANE OPERATOR CAB Plan of Treatment Health Maintenance Due Date Last Done Comments PAP SMEAR 1983 COLONOSCOPY 2012 MAMMOGRAM 2012 INFLUENZA VACCINE 05/25/2017 Procedures Procedure Name Priority Date/Time Associated Diagnosis Comments HEMODIALYSIS Routine 12/28/2016 12:05 AM CRANE OPERATOR CAB HEMODIALYSIS Routine 12/25/2016 12:05 AM CRANE OPERATOR CAB HEMODIALYSIS Routine 12/23/2016 1:50 PM CRANE OPERATOR CAB HEMODIALYSIS Routine 12/23/2016 11:21 AM CRANE OPERATOR CAB after 12/21/2016 Results * POC glucose (12/28/2016 4:53 PM) Only the most recent of 27 results within the time period is included. Component Value Ref Range POC glucose 137 (H) 65 - 99 mg/dL Comment: Meter ID: [id number] Elder Assistant: Da Bustillos Specimen Performing Laboratory [facility] DEPARTMENT OF PATHOLOGY AND GENOMIC MEDICINE [address] [place] [address] * Estimated GFR (12/28/2016 6:00 AM) Only [...] and Americans. Specimen Performing Laboratory Plasma specimen [facility] DEPARTMENT OF PATHOLOGY AND GENOMIC MEDICINE [address] [place] [address] * CBC with platelet and differential (12/28/2016 [...] (promyelocytes, myelocytes, metamyelocytes) Specimen Performing Laboratory Blood [facility] DEPARTMENT OF PATHOLOGY AND GENOMIC MEDICINE [address] [place] [address] * Basic metabolic panel (12/28/2016 6:00 AM) [...] 10.2 mg/dL Specimen Performing Laboratory Plasma specimen [facility] DEPARTMENT OF PATHOLOGY AND GENOMIC MEDICINE [address] [place] [address] * Phosphorus level (12/26/2016 5:00 AM) Only the most recent of 5 results within the time period is included. Component Value Ref Range Phosphorus 2.6 2.4 - 4.5 mg/dL Specimen Performing Laboratory Plasma specimen [facility] DEPARTMENT OF PATHOLOGY AND GENOMIC [facility] [address] [place] [address] * Magnesium level (12/26/2016 5:00 AM) Only the most recent of 4 results within the time period is included. Component Value Ref Range Magnesium 2.1 1.6 - 2.6 mg/dL Specimen Performing Laboratory Plasma specimen [facility] DEPARTMENT OF PATHOLOGY AND [facility] [address] [place] [address] * CT Chest Wo Contrast Abdomen Wo Contrast Pelvis Wo Contrast (12/25/2016 3:30 PM) Specimen Performing Laboratory [facility] [address] [place] [address] Narrative EXAMINATION:CT CHEST WO CONTRAST ABDOMEN WO [...] is noted. 3. Nonobstructing left intrarenal calculus [id number] Procedure Note Hm Interface, Radiology Results Incoming - 12/25/2016 4:00 PM CRANE OPERATOR CAB EXAMINATION: CT CHEST WO CONTRAST ABDOMEN WO [...] is noted. 3. Nonobstructing left intrarenal calculus [id number] * XR Chest 1 Vw Portable (12/24/2016 5:38 PM) Only the most recent of 4 results within the time period is included. Specimen Performing Laboratory [facility] [address] [place] [address] Narrative EXAMINATION:XR CHEST 1 VW PORTABLE CLINICAL HISTORY:Increased Respiratory Distress COMPARISON:December 23, 2016 IMPRESSION: There is a right IJ catheter with its tip spur vena cava.There is cardiomegaly.Mediastinum is slightly widened.Pulmonary vessels are minimally prominent but there is no infiltrate. [facility]-[id number] Procedure Note Hm Interface, Radiology Results Incoming - 12/24/2016 5:44 PM CRANE OPERATOR CAB EXAMINATION: XR CHEST 1 VW PORTABLE CLINICAL HISTORY: Increased Respiratory Distress COMPARISON: December 23, 2016 IMPRESSION: There is a right IJ catheter with its tip spur vena cava. There is cardiomegaly. Mediastinum is slightly widened. Pulmonary vessels are minimally prominent but there is no infiltrate. [facility]-[id number] * Troponin (12/24/2016 5:25 AM) Only the [...] myocardial injury. Specimen Performing Laboratory Plasma specimen [facility] DEPARTMENT OF PATHOLOGY AND GENOMIC MEDICINE [address] [place] [address] * Comprehensive metabolic panel (12/24/2016 5:25 AM) [...] 1.2 mg/dL Specimen Performing Laboratory Plasma specimen [facility] DEPARTMENT OF PATHOLOGY AND GENOMIC MEDICINE [address] [place] [address] * Blood culture, aerobic & anaerobic (12/23/2016 9:40 PM) Component Value Ref Range Blood culture isolate No growth after 5 days of incubation. Comment: Specimen Information Specimen Source: Blood Specimen Site: Line, Central Specimen Performing Laboratory Blood - Line, central [facility] DEPARTMENT OF PATHOLOGY AND GENOMIC MEDICINE [address] [place] [address] Narrative Collect before antibiotics given. Blood cultures should be ordered x2, with each set drawn from a different peripheral site.If unable to draw both sets from a peripheral site, one set may be drawn from a central line; an IV line should NEVER be used. * CT Head Wo Contrast (12/23/2016 8:15 PM) Specimen Performing Laboratory [facility] [address] [place] [address] Narrative EXAMINATION:CT HEAD WO CONTRAST CT IMAGING [...] and no change from December 14, 2016. [facility]-[id number] Procedure Note Interface, Radiology Results Incoming - 12/23/2016 8:23 PM CRANE OPERATOR CAB EXAMINATION: CT HEAD WO CONTRAST CT IMAGING [...] and no change from December 14, 2016. [facility]-[id number] * Lactic acid level (12/23/2016 5:45 PM) Component Value Ref Range Lactic acid 1.8 0.5 - 2.2 mmol/L Specimen Performing Laboratory Plasma specimen [facility] DEPARTMENT PATHOLOGY AND [address] [place] [address] * Arterial blood gas (12/23/2016 4:40 PM) Component Value Ref Range pH, arterial 7.45 7.35 - 7.45 pCO2, arterial 45 35 - 45 mmHg pO2, arterial 110 (H) 80 - 90 mmHg Bicarbonate, arterial 30.3 (H) 21.0 - 28.0 mmol/L Base excess, arterial 6 (H) -2 - 2 mEq/L O2 saturation, arterial 97 95 - 100 % Specimen Performing Laboratory Blood [facility] PATHOLOGY AND [address] [place] [address] * ECG 12 lead (12/23/2016 4:28 PM) Only the most recent of 2 results within the time period is included. Component Value Ref Range Ventricular rate 75 Atrial rate 75 NM interval 134 QRSD interval 84 QT interval 446 QTC interval 498 P axis 1 2 QRS axis 1 4 T wave axis 29 EKG impression Normal sinus rhythm-Prolonged QT-Abnormal ECG-In automated comparison with ECG of 21-DEC-2016 13:44,-QT has lengthened- Specimen Performing Laboratory [facility] MUSE [address] [place] [address] * Hepatitis C antibody (12/23/2016 4:20 AM) Component Value Ref Range Hepatitis C Ab Non-reactive Non-reactive Specimen Performing Laboratory Blood [facility] DEPARTMENT PATHOLOGY AND [address] [place] [address] * Hepatitis B core antibody total (12/23/2016 4:20 AM) Component Value Ref Range Hepatitis B core total Ab Non-reactive Non-reactive Specimen Performing Laboratory Blood [facility] DEPARTMENT OF PATHOLOGY AND [facility] MEDICINE [address] [place] [address] * Hepatitis B surface antibody (12/23/2016 4:20 AM) Component Value Ref Range Hepatitis B surface Ab Reactive (A) Non-reactive Specimen Performing Laboratory Blood [facility] DEPARTMENT OF PATHOLOGY AND GENOMIC MEDICINE [address] [place] [address] [place] [address] * Hepatitis B surface antigen (12/23/2016 4:20 AM) Component Value Ref Range Hepatitis B surface Ag Nonreactive Non-reactive Specimen Performing Laboratory Blood [facility] DEPARTMENT OF PATHOLOGY AND GENOMIC MEDICINE [address] [place] [address] [place] [address] * Parathyroid hormone (12/23/2016 4:00 AM) Component Value Ref Range PTH 129 (H) 15 - 65 pg/mL Specimen Performing Laboratory Blood [facility] DEPARTMENT OF PATHOLOGY AND GENOMIC MEDICINE [address] [place] [address] [place] [address] * Iron level (12/23/2016 4:00 AM) Component Value Ref Range Iron level 74 37 - 145 ug/dL Specimen Performing Laboratory Plasma specimen [facility] DEPARTMENT OF PATHOLOGY AND GENOMIC MEDICINE [address] [place] [address] [place] [address] * Ferritin level (12/23/2016 4:00 AM) Component Value Ref Range Ferritin level 1,088 (H) 13 - 150 ng/mL Specimen Performing Laboratory Plasma specimen [facility] DEPARTMENT OF PATHOLOGY AND GENOMIC MEDICINE [address] [place] [address] * ECG ED Preliminary Interpretation - NOT AN ORDER (12/22/2016 9:03 AM) Leeann Russ MD 12/22/20169:03 AM ECG ED Preliminary Interpretation - Not an Order Performed by: WILLY FRYE Authorized by: WILLY FRYE ECG reviewed by ED Physician in the absence of a regulatory affairs assistant: yes Interpretation: Interpretation: normal Rate: ECG rate:69 ECG rate assessment: normal Rhythm: Rhythm: sinus rhythm QRS: QRS axis:Normal ST segments: ST segments:Non-specific T waves: T waves: normal * Creatine kinase, total (CPK) (12/21/2016 1:40 PM) Component Value Ref Range Creatine kinase 16 (L) 26 - 192 Specimen Performing Laboratory Blood [facility] DEPARTMENT OF PATHOLOGY AND GENOMIC MEDICINE [address] [place] [address] [place] [address] after 12/21/2016 Insurance Payer Benefit Subscriber ID Type Phone Address Plan / Group MEDICARE MEDICARE xxxxxxxxxx Medicare [place], [place] PART A AND B AARP AARP xxxxxxxxxxx [place] [address]
[2017-12-22] MEDS ORDERED: ONDANSETRON HCL INJ 2 MG/ML VIAL IV PRN (17:15)
[2017-12-22] MEDS ORDERED: ZOLPIDEM TARTRATE 5 MG TAB PO PRN (17:15)
[2017-12-22] MEDS ORDERED: HYDRALAZINE HCL 20 MG/ML VIAL IV PRN (17:15)
[2017-12-22] MEDS ORDERED: ACETAMINOPHEN 325 MG TAB PO PRN (17:15)
[2017-12-22] MEDS: SEVELAMER CARBONATE 800 MG TAB PO SCH (17:30)
[2017-12-22] MEDS ORDERED: CARVEDILOL 3.125 MG TAB PO ONE (18:00)
[2017-12-22] MEDS ORDERED: SODIUM CHLORIDE 0.9% 1000ML 2,000 ML ONE (18:09)
[2017-12-22] MEDS ORDERED: TYLENOL WITH C1 EACH PO (18:33)
[2017-12-22] MEDS ORDERED: CALCITRATE200 MG PO (18:33)
[2017-12-22] MEDS ORDERED: LYRICA75 MG PO (18:33)
[2017-12-22] MEDS ORDERED: GEMFIBROZIL600 MG PO (18:33)
[2017-12-22] MEDS ORDERED: LABETALOL HCL100 MG PO (18:33)
[2017-12-22] MEDS ORDERED: OMEPRAZOLE40 MG PO (18:33)
[2017-12-22] MEDS ORDERED: NOVOLOG100 UNITS1 SQ (18:39)
[2017-12-22] MEDS: PREGABALIN 75 MG CAP PO SCH (18:49)
[2017-12-22] MEDS ORDERED: SODIUM CHLORIDE 0.9% 250ML 250 ML ONE (19:20)
[2017-12-22] MEDS: INSULIN LISPRO 100 UNIT/1 ML 3ML VIAL SQ SCH (21:54)
[2017-12-22] MEDS ORDERED: CEFEPIME HCL 1 GM VIAL ONE (23:12)
[2017-12-22] MEDS ORDERED: MAGNESIUM SULFATE 2GM/50ML 50 ML IV ONE (23:12)
[2017-12-23] MEDS: TRAMADOL HCL 50 MG TAB PO PRN (03:02)
[2017-12-23 04:38] LABS: BASOPHILS % 0.2 % (0.0-1.0); EOSINOPHILS # (AUTO) 0.1 (0.0-0.4); HEMATOCRIT 26.8 % (34.2-44.1); HEMOGLOBIN 9.1 g/dL (12.0-16.0); LYMPHOCYTES # (AUTO) 0.4 (1.0-3.2); LYMPHOCYTES % 7.1 % (18.0-39.1); MEAN CORPUSCULAR HEMOGLOBIN 32.3 pg (28-32); MONOCYTES # (AUTO) 0.6 (0.2-0.8); MONOCYTES % 10.4 % (4.4-11.3); NEUTROPHILS # (AUTO) 4.8 (2.1-6.9); PLATELET COUNT 140 x10e3/uL (140-360); RED BLOOD COUNT 2.82 x10e6/uL (3.6-5.1); RED CELL DISTRIBUTION WIDTH 22.2 % (11.7-14.4)
[2017-12-23 04:56] LABS: EOSINOPHILS % (MANUAL) 4 % (0-7); LYMPHOCYTES % (MANUAL) 11 % (19-48); MONOCYTES % (MANUAL) 7 % (3.4-9.0); NEUTROPHILS % (MANUAL) 78 % (40-74); PLATELET ESTIMATE ADEQUATE
[2017-12-23 04:57] LABS: ANISOCYTOSIS SLIGHT; PLATELET MORPHOLOGY COMMENT NORMAL; RBC MORPHOLOGY COMMENT NORMAL
--- NOTE | 2017-12-23 05:13 | Diagnostic Imaging Report ---
EXAM: CHEST SINGLE (PORTABLE), AP 1 view INDICATION: Pulmonary edema COMPARISON: AP view of the chest December 22, 2017 FINDINGS: LINES/TUBES: None LUNGS: Stable interstitial edema/vascular congestion PLEURA: No effusions or pneumothorax. HEART AND MEDIASTINUM: Stable mild enlargement of the cardiomediastinal silhouette. BONES AND SOFT TISSUES: No acute findings. IMPRESSION: No acute thoracic abnormality. Signed by: Dr. Columba Stack M.D. on 12/23/2017 5:09 AM
[2017-12-23 05:24] LABS: ALBUMIN 3.2 g/dL (3.5-5.0); ALBUMIN/GLOBULIN RATIO 0.8 (0.8-2.0); ANION GAP 20.3 mmol/L (8-16); CALCIUM 8.9 mg/dL (8.4-10.2); CREATININE, SERUM 3.21 mg/dL (0.57-1.11); PHOSPHORUS 3.3 MG/DL (2.3-4.7)
[2017-12-23 05:25] LABS: POTASSIUM 6.3 mmol/L (3.5-5.1)
[2017-12-23] MEDS ORDERED: SOD POLYSTYRENE SULFONATE SUSP 15 GM/60 ML BTL PO ONE (05:30)
[2017-12-23] MEDS: INSULIN LISPRO 100 UNIT/1 ML 3ML VIAL SQ SCH ×4 (07:44→20:18)
[2017-12-23] MEDS: PANTOPRAZOLE SOD 40 MG TABEC PO SCH (07:49)
[2017-12-23] MEDS: SEVELAMER CARBONATE 800 MG TAB PO SCH ×3 (07:49→18:06)
[2017-12-23] MEDS ORDERED: CARVEDILOL 3.125 MG TAB PO SCH (09:00)
[2017-12-23] MEDS: PREGABALIN 75 MG CAP PO SCH (09:40)
[2017-12-23] MEDS ORDERED: KETOROLAC TROMETHAMINE 30 MG/ML VIAL IV STA (10:05)
[2017-12-23 16:43] LABS: ALBUMIN 3.2 g/dL (3.5-5.0); ALBUMIN/GLOBULIN RATIO 0.8 (0.8-2.0); ANION GAP 17.7 mmol/L (8-16); CALCIUM 7.1 mg/dL (8.4-10.2); CREATININE, SERUM 1.84 mg/dL (0.57-1.11); POTASSIUM 3.7 mmol/L (3.5-5.1)
[2017-12-23] MEDS: CARVEDILOL 3.125 MG TAB PO SCH (18:06)
[2017-12-23] MEDS: KETOROLAC TROMETHAMINE 30 MG/ML VIAL IV PRN (19:23)
[2017-12-23] MEDS: GABAPENTIN 300 MG CAP PO SCH (19:25)
[2017-12-23 21:03] VITALS: BP 145/65
[2017-12-24 01:17] VITALS: BP 145/65
[2017-12-24] MEDS: KETOROLAC TROMETHAMINE 30 MG/ML VIAL IV PRN ×3 (03:33→17:47)
[2017-12-24 06:03] VITALS: BP 140/68
[2017-12-24 06:46] LABS: ALBUMIN 3.1 g/dL (3.5-5.0); ALBUMIN/GLOBULIN RATIO 0.7 (0.8-2.0); ANION GAP 16.4 mmol/L (8-16); CALCIUM 8.4 mg/dL (8.4-10.2); CREATININE, SERUM 3.04 mg/dL (0.57-1.11); POTASSIUM 4.4 mmol/L (3.5-5.1)
[2017-12-24] MEDS: INSULIN LISPRO 100 UNIT/1 ML 3ML VIAL SQ SCH ×3 (07:30→16:30)
[2017-12-24 08:00] VITALS: BP 147/77
[2017-12-24] MEDS: PANTOPRAZOLE SOD 40 MG TABEC PO SCH (08:30)
[2017-12-24] MEDS ORDERED: GABAPENTIN 300 MG CAP PO SCH (09:00)
[2017-12-24] MEDS: SEVELAMER CARBONATE 800 MG TAB PO SCH ×3 (09:00→16:51)
[2017-12-24] MEDS: CARVEDILOL 3.125 MG TAB PO SCH ×2 (09:00→16:51)
[2017-12-24] MEDS: GABAPENTIN 300 MG CAP PO SCH (09:07)
[2017-12-24] MEDS: TRAMADOL HCL 50 MG TAB PO PRN (09:32)
[2017-12-24] MEDS ORDERED: SODIUM CHLORIDE 0.9% 1000ML 2,000 ML IV PRN (10:30)
[2017-12-24] MEDS ORDERED: ALBUMIN HUMAN 12.5GM / 50ML IV PRN (10:30)
[2017-12-24] MEDS ORDERED: MANNITOL 25% 12.5GM/50 ML VIAL IV PRN (10:30)
[2017-12-24] MEDS ORDERED: SODIUM CHLORIDE 0.9% 250ML 500 ML IV PRN (10:30)
[2017-12-24 12:00] VITALS: BP 144/65
--- NOTE | 2017-12-24 13:08 | Discharge Summary ---
PRIMARY CARE DOCTOR: Dr. Jasperet Ptaten. FINAL DIAGNOSIS: Severe hyperkalemia. SECONDARY DIAGNOSES 1. Chronic blood loss anemia, status post 2 units of packed red blood cells. 2. Chronic pain syndrome. 3. Uncontrolled hypertension, better. 4. Pulmonary edema, resolved after dialysis. 5. Diabetes, stable. 6. Morbid obesity. 7. Obesity hypoventilation syndrome. PROCEDURES/STUDIES PERFORMED 1. Packed red blood cells times 2. 2. Daily dialysis times 3 days. HISTORY: Per [facility]. HOSPITAL COURSE: The patient was admitted with a potassium of 8. Emergent dialysis was done. Afterwards, her potassium was still 6. Therefore, another dialysis was done the next day. Patient did not have any EKG changes anytime throughout the hospital course. Patient also received 2 units of blood with her dialysis. Her pulmonary edema got better after dialysis as well. CONDITION ON DISCHARGE: Stable. DISCHARGE MEDICATIONS: Please see medication reconciliation form. Patient was seen and examined today. CIARA CARNES M.D. Job#: [id number] [facility] cc:Dr. Jaspreet Patten
[2017-12-24 16:00] VITALS: BP 160/78
[2017-12-24 20:00] VITALS: BP 138/62
== END 2017-12-24 20:20 | disposition home or self-care (01) | DRG 640 ==
LOC: ER 10:56 → ERHOLD 17:03 → EDBEDREQSVC 21:26 → MED/SURG2 12-23 20:06
PROVIDERS: ADMIT Internal Medicine; ATTEND Internal Medicine
PROC: 30233N1 Transfusion of Nonautologous Red Blood Cells into Peripheral Vein, Percutaneous Approach (ICD-10-PCS; principal; 2017-12-22)
PROC: 5A1D70Z Performance of Urinary Filtration, Intermittent, Less than 6 Hours Per Day (ICD-10-PCS; 2017-12-22)
PROC: 5A1D70Z Performance of Urinary Filtration, Intermittent, Less than 6 Hours Per Day (ICD-10-PCS; 2017-12-23)
PROC: 5A1D70Z Performance of Urinary Filtration, Intermittent, Less than 6 Hours Per Day (ICD-10-PCS; 2017-12-24)
DX: E87.5 Hyperkalemia (principal); N18.6 End stage renal disease; E11.22 Type 2 diabetes mellitus with diabetic chronic kidney disease; I12.0 Hypertensive chronic kidney disease with stage 5 chronic kidney disease or end stage renal disease; Z68.41 Body mass index [BMI] 40.0-44.9, adult; Z99.2 Dependence on renal dialysis; Z79.4 Long term (current) use of insulin; D64.9 Anemia, unspecified; E21.3 Hyperparathyroidism, unspecified; G89.4 Chronic pain syndrome; E66.01 Morbid (severe) obesity due to excess calories
CPT/HCPCS: 36415; 36430; 71045; 80053; 82550; 82553; 82948; 83970; 84100; 84484; 85025; 86704; 86706; 86850; 86900; 86920; 87340; 93005; 94640; 99284; J0692; J1885; J2405; J7030; J7050; J7799; P9016

== ENCOUNTER → 2017-12-31 | Outpatient (CLI) | payer MEDICARE ==
[~2017-12-31] MED LIST changes: +CALCITRATE200 MG PO; +GEMFIBROZIL600 MG PO; +LABETALOL HCL100 MG PO; +NOVOLOG100 UNITS1 SQ; +OMEPRAZOLE40 MG PO; +TYLENOL WITH C1 EACH PO
--- NOTE | 2017-12-31 18:00 | Diagnostic Imaging Report ---
PROCEDURE:ANKLE 3+ VIEWS LEFT INDICATION:Left ankle fracture. COMPARISON:11/19/17 FINDINGS: Redemonstration of distal left malleolar fracture line with no change in alignment. Healed medial malleolar fracture. No soft tissue swelling. Ankle mortise is intact. CONCLUSION: No interval change from prior x-ray. Dictated by: Israel Bernard M.D. on 12/31/2017 at 18:00 Electronically approved by: Israel Bernard M.D. on 12/31/2017 at 18:00
== END ==
LOC: RAD 17:00
PROVIDERS: ATTEND Podiatrist Foot & Ankle Surgery
DX: S82.62XA Displaced fracture of lateral malleolus of left fibula, initial encounter for closed fracture (principal)

== ENCOUNTER 2018-01-14 22:08 | Emergency (ER) | payer MEDICARE ==
[~2018-01-14] VITALS: Ht 139.7 cm; Wt 81.6 kg
--- OUTSIDE RECORDS SUMMARY | 2018-01-14 22:11 | XMS REPORT | Continuity of Care Document ---
Author Author [facility] Organization [facility] Address [address] [place] [address] Phone Unavailable Care Team Providers Care Director Cost Name Role Phone ANDREW JEREZ PCP Insurance Providers Guarantor Tai Grant Address [address] [place] [address] Email Payer [facility] Policy Number [id number] Subscriber's Name Tai Grant Relationship 18 Self / Same As Patient Group Number PLAN A Group Name UNEMPLOYED Effective Date 17 Payer Medicare A & B Policy Number [id number] Subscriber's Name Tai Grant Relationship 18 Self / Same As Patient Group Number [id number] Group Name UNEMPLOYED Effective Date 12 Advance Directives Directive Response Recorded Date/Time Does the patient have an advance directive? No 12/23/17 9:11pm If yes, is advance directive on file with [facility]? No 04/14/16 7:19pm If not on file with [facility] will patient provide a copy? No 05/06/16 1:20pm Do you have a Directive to Physician? No 12/22/17 4:55pm Do you have a Medical Power of Wrinkle Chaser? No 12/22/17 4:55pm Do you have an out of hospital Do Not Resuscitate Order? No 12/22/17 4:55pm Do you have any special needs we should be aware of? No 12/22/17 4:55pm Do you have a support person here with you today? No 12/22/17 4:55pm Did patient receive Notice of Privacy Practices? Yes 12/22/17 4:55pm Did patient receive patient rights and responsibilities? Yes 12/22/17 4:55pm Problems Medical Problem Onset Date Status Chest pain 04/14/2016 Acute Cramps, muscle, general Unknown Acute ESRD (end stage renal disease) 08/07/2015 Acute Intestinal cramps Unknown Acute Jejunitis 08/07/2015 Acute Medications Current Home Medications Medication Dose Units Route Directions Days Qty Instructions Start Date Acetaminophen With Codeine (Tylenol With Codeine #3 Tablet) 1 Each Tablet 300 Mg Oral Every 4 Hours as needed for Pain Calcium Citrate (Calcitrate) 200 Mg Tablet 2,000 Mg Oral Three Times A Day Carvedilol 3.125 Mg Tablet 3.125 Mg Oral Twice A Day 60 Tab Clopidogrel Bisulfate (Plavix) 75 Mg Tablet 75 Mg Oral Daily 30 Tab Cyclobenzaprine Hcl 10 Mg Tablet 5 Mg Oral Three Times A Day Divalproex Sodium (Depakote Er) 500 Mg [id number] 500 Mg Oral Twice A Day Duloxetine Hcl (Cymbalta) 20 Mg Capcr 30 Mg Oral Twice A Day 30 Cap Esomeprazole Magnesium (Nexium) 40 Mg Capsule. 20 Mg Oral Daily PROTONIX THERAPEUTIC SUBSTITUTE FOR NEXIUM PER [facility] Gemfibrozil 600 Mg Tablet 600 Mg Oral Twice A Day Insulin Aspart (Novolog) 100 Units/1 Ml Inj 26 Unit Sub-Q Before Meals And At Bedtime Insulin Detemir (Levemir) 100 Unit/1 Ml Vial 10 Unit Subcutaneously Daily Labetalol Hcl 100 Mg Tablet 200 Mg Oral Twice A Day 30 Tab Midodrine Hcl 2.5 Mg Tablet 5 Mg Oral .prior And Mid Tx Omeprazole 40 Mg Capsule. 20 Mg Oral Daily Pregabalin (Lyrica) 75 Mg Cap 75 Mg Oral Twice A Day 30 Cap Ropinirole Hcl 0.25 Mg Tablet 0.25 Mg Oral Three Times A Day 90 Tab Sevelamer Carbonate (Renvela) 0.8 Gm Powd.pack 2,400 Mg Oral Three Times A Day Simvastatin 20 Mg Tablet 10 Mg Oral Today At 9:00PM Tramadol Hcl (Ultram) 50 Mg Tablet 50 Mg Oral Every 4 Hours as needed for Pain Past Home Medications Medication Directions Ordered Status Amoxicillin/Potassium Clav (Augmentin 500-125 Tablet) 1 Each Tablet, 500 Mg Oral Twice A Day Discontinued Calcium Acetate (Phoslo) 667 Mg Cap, 3 Tab Oral Daily At 1700 Discontinued Carvedilol 3.125 Mg Tablet, 3.125 Mg Oral Twice A Day Discontinued Cholecalciferol (Vitamin D3) (Vitamin D-3) 2,000 Unit Capsule, 2000 U Oral Daily Discontinued Clopidogrel Bisulfate (Clopidogrel) 75 Mg Tablet, 75 Mg Oral Daily Discontinued Clopidogrel Bisulfate (Plavix) 75 Mg Tablet, 75 Mg Oral Daily Discontinued Cyclobenzaprine Hcl 10 Mg Tablet, 5 Mg Oral Every 8 Hours as needed for Muscle Spasms Discontinued Dicyclomine Hcl 10 Mg Capsule, 5 Mg Oral Every 8 Hours as needed for Abdominal Pain Discontinued Divalproex Sodium (Divalproex Sodium Er) 500 Mg Tab.er.24h, 500 Mg Oral Bedtime Discontinued Duloxetine Hcl (Cymbalta) 20 Mg Capcr, 20 Mg Oral Bedtime Discontinued Famotidine (Pepcid) 20 Mg Tablet, 40 Mg Oral Daily Discontinued Fludrocortisone Acetate 0.1 Mg Tab, 0.05 Mg Oral Hd Discontinued Folic Acid/Cyanocob/Pyridoxine (Nephro-Melodie Tablet) 1 Ea Tab, 1 Each Oral Daily Discontinued Folic Acid/Cyanocob/Pyridoxine (Nephro-Melodie Tablet) 1 Ea Tab, 1 Each Oral Daily Discontinued Folic Acid/Cyanocob/Pyridoxine (Nephro-Melodie Tablet) 1 Ea Tab, 1 Each Oral Daily Discontinued Gabapentin 300 Mg Capsule, 300 Mg Oral Twice A Day Discontinued Gabapentin 300 Mg Capsule, 300 Mg Oral Twice A Day Discontinued Insulin Detemir (Levemir) 100 Unit/1 Ml Vial, 10 Units Subcutaneously Am Discontinued Insulin Human Isophan/Regular (Novolin 70-30 100 Unit/Ml Vial) 100 Units/Ml Ml , 26 Units Sub-Q Three Times Daily With Meals Discontinued Insulin Human Lispro (Humalog) 100 Units/Ml Ml, 60 Units Subcutaneously Bedtime Discontinued Insulin Human Lispro (Humalog) 100 Units/Ml Ml, 60 Units Subcutaneously Daily At 1700 Discontinued Insuln Asp Prt/Insulin Aspart (Novolog Mix 70-30 Flexpen Syrn) 100 Unit/1 Ml Insuln.pen, 26 UnitSubcutaneously Three Times A Day Discontinued Lidocaine (Lidoderm) 700 Mg Adh..patch, 5 % Topically Every 12 Hours as needed for Pain Discontinued Lisinopril 10 Mg Tablet, 10 Mg Oral Daily Discontinued Lisinopril 10 Mg Tablet, 20 Mg Oral Daily Discontinued Midodrine Hcl 2.5 Mg Tablet, 10 Mg Oral Daily Discontinued Midodrine Hcl 2.5 Mg Tablet, 10 Mg Oral During Dialysis Discontinued Midodrine Hcl 2.5 Mg Tablet, 5 Mg Oral Twice A Day as needed for After Hd Discontinued Ondansetron Hcl (Ondansetron Odt) 4 Mg/Udtablet Tabdp, 4 Mg Oral Every 6 Hours as needed for Nausea Discontinued Pantoprazole Sodium (Protonix) 40 Mg Tablet.dr, 40 Mg Oral Twice A Day Discontinued Pantoprazole Sodium (Protonix) 40 Mg Tablet.dr, 40 Mg Oral Daily Discontinued Pregabalin (Lyrica) 75 Mg Cap, 75 Mg Oral Daily Discontinued Pregabalin (Lyrica) 75 Mg Cap, 75 Mg Oral Twice A Day Discontinued Promethazine Hcl 25 Mg Tablet, 0.5 Mg Oral Every 4 Hours as needed for Nausea Discontinued Promethazine Hcl 12.5 Mg Tablet, 12.5 Mg Oral Every 8 Hours as needed for Nausea Discontinued Ropinirole Hcl 12 Mg Tab.er.24h, 25 Mg Oral Three Times A Day Discontinued Saccharomyces Boulardii (Florastor) 250 Mg Capsule, 250 Mg Oral Twice A Day Discontinued Scopolamine Hydrobromide (Transderm-Scop) 1 Each Patch.td72, 1.5 Mg Transderm Q 3 Days Discontinued Sevelamer Hcl (Renvela) 800 Mg Tab, 800 Mg Oral Three Times Daily With Meals Discontinued Simvastatin 10 Mg Tablet, 10 Mg Oral Today At 9:00PM Discontinued Sodium Bicarbonate 650 Mg Tablet, 325 Mg Oral Three Times A Day Discontinued Sucralfate (Carafate) 1 Gm Tablet, 1 Gm Oral Before Meals And At Bedtime Discontinued Sumatriptan Succinate 25 Mg Tablet, 25 Mg Oral Daily Discontinued Sumatriptan Succinate 25 Mg Tablet, 25 Mg Oral As Needed as needed for Migraine Discontinued Tramadol Hcl/Acetaminophen (Ultracet Tablet) 1 Each Tablet, 50 Mg Oral Every 4 Hours as needed for Pain Discontinued Family History Relationship Condition Age at Onset Recorded Date/Time 33 Father Family history of completed stroke Not Recorded 08/07/2015 5:53pm 32 Mother Family history of completed stroke Not Recorded 08/07/2015 5:53pm 09 Sister Family history of completed stroke Not Recorded 08/07/2015 5:53pm Social History Social History Problem Response Recorded Date/Time Onset Date Status Hx Psychiatric Problems No 12/23/2017 9:11pm Not Applicable Not Applicable Hx Eating Disorder No 12/23/2017 9:11pm Not Applicable Not Applicable Hx Substance Use Disorder No 12/23/2017 9:11pm Not Applicable Not Applicable Hx Depression No 12/23/2017 9:11pm Not Applicable Not Applicable Hx Alcohol Use No 12/23/2017 9:11pm Not Applicable Not Applicable Hx Substance Use Treatment No 12/23/2017 9:11pm Not Applicable Not Applicable Hx Physical Abuse No 12/23/2017 9:11pm Not Applicable Not Applicable Smoking Status Start Date Stop Date Never Smoker Hospital Discharge Instructions No hospital discharge instruction information available. Plan of Care Discharge Date 12/24/17 8:20pm Disposition HOME, SELF-CARE Instructions/Education Provided Hyperkalemia Prescriptions See Medication Section Additional Instructions/Education CONTINUE DIET AND ACTIVITY TOLERATED FOLLOW UP WITH PRIMARY CARE IN 1-2 WEEKS RICH ANGELO Functional Status Query Response Date Recorded Assistive Devices None December 23, 2017 9:03pm Ambulation Ability Standby Assistance 1 person assist December 23, 2017 9:03pm Toileting Ability Minimum Assistance December 23, 2017 9:03pm Allergies, Adverse Reactions, Alerts Allergen Type Severity Reaction Status Last Updated Nifedipine Allergy Severe SWELLING Active 12/22/17 Immunizations No immunization information available. Vital Signs Acute Vital Signs Vital Response Date/Time Temperature (Fahrenheit) 98.5 degrees F (97.6 - 99.5) 12/24/2017 8:00pm Pulse Pulse Rate (adult) 77 bpm (60 - 90) 12/24/2017 8:00pm Respiratory Rate 18 bpm (12 - 24) 12/24/2017 8:00pm Blood Pressure 138/62 mm Hg 12/24/2017 8:00pm Height 4 ft 7 in 12/23/2017 9:11pm Weight 180 lb 12/23/2017 9:11pm Body Mass Index 41.8 kg/m^2 12/23/2017 9:11pm Results Laboratory Results Test Name Result Units Flags Reference Collection Date/Time Result Date/ Time Comments White Blood Count 6.06 x10e3/uL 4.8-10.8 12/23/2017 4:3012/23/2017 4 :41am Red Blood Count 2.82 x10e6/uL L 3.6-5.1 12/23/2017 4:3012/23/2017 4: 41am Hemoglobin 9.1 g/dL L 12.0-16.0 12/23/2017 4:3012/23/2017 4:41am Hematocrit 26.8 % L 34.2-44.1 12/23/2017 4:3012/23/2017 4:41am Mean Corpuscular Volume 95.0 fL # 81-99 12/23/2017 4:3012/23/2017 4: 41am Mean Corpuscular Hemoglobin 32.3 pg H 28-32 12/23/2017 4:302017 4:41am Mean Corpuscular Hemoglobin Concent 34.0 g/dL 31-35 12/23/2017 4:3012/23/2017 4:41am Red Cell Distribution Width 22.2 % H 11.7-14.4 12/23/2017 4:302017 4:41am Platelet Count 140 x10e3/uL 140-360 12/23/2017 4:3012/23/2017 4: 41am Neutrophils (%) (Auto) 79.0 % 38.7-80.0 12/23/2017 4:3012/23/2017 4: 41am Lymphocytes (%) (Auto) 7.1 % L 18.0-39.1 12/23/2017 4:3012/23/2017 4: 41am Monocytes (%) (Auto) 10.4 % 4.4-11.3 12/23/2017 4:3012/23/2017 4: 41am Eosinophils (%) (Auto) 2.0 % 0.0-6.0 12/23/2017 4:30am 12/23/2017 4: 41am Basophils (%) (Auto) 0.2 % 0.0-1.0 12/23/2017 4:30am 12/23/2017 4:41am IM GRANULOCYTES % 1.3 % H 0.0-1.0 12/23/2017 4:30am 12/23/2017 4:41am Neutrophils # (Auto) 4.8 2.1-6.9 12/23/2017 4:30am 12/23/2017 4:41am Lymphocytes # (Auto) 0.4 L 1.0-3.2 12/23/2017 4:30am 12/23/2017 4: 41am Monocytes # (Auto) 0.6 0.2-0.8 12/23/2017 4:30am 12/23/2017 4:41am Eosinophils # (Auto) 0.1 0.0-0.4 12/23/2017 4:30am 12/23/2017 4:41am Basophils # (Auto) 0.0 0.0-0.1 12/23/2017 4:30am 12/23/2017 4:41am Absolute Immature Granulocyte (auto 0.08 x10e3/uL 0-0.1 12/23/2017 4: 30am 12/23/2017 4:41am Differential Total Cells Counted 100 12/23/2017 4:30am 12/23/2017 4 :57am Neutrophils % (Manual) 78 % H 40-74 12/23/2017 4:30am 12/23/2017 4:57am Lymphocytes % (Manual) 11 % L 19-48 12/23/2017 4:30am 12/23/2017 4:57am Monocytes % (Manual) 7 % 3.4-9.0 12/23/2017 4:30am 12/23/2017 4:57am Eosinophils % (Manual) 4 % 0-7 12/23/2017 4:30am 12/23/2017 4:57am Platelet Estimate ADEQUATE 12/23/2017 4:30am 12/23/2017 4:57am Platelet Morphology Comment NORMAL 12/23/2017 4:30am 12/23/2017 4: 57am Anisocytosis SLIGHT 12/23/2017 4:30am 12/23/2017 4:57am Red Cell Morphology Comment NORMAL 12/23/2017 4:30am 12/23/2017 4: 57am Sodium Level 141 mmol/L 136-145 12/24/2017 5:51am 12/24/2017 6:48am Potassium Level 4.4 mmol/L 3.5-5.1 12/24/2017 5:51am 12/24/2017 6:48am Chloride Level 97 mmol/L L 98-107 12/24/2017 5:51am 12/24/2017 6:48am Carbon Dioxide Level 32 mmol/L H 22-29 12/24/2017 5:51am 12/24/2017 6: 48am Anion Gap 16.4 mmol/L H 8-16 12/24/2017 5:51am 12/24/2017 6:48am Blood Urea Nitrogen 19 mg/dL # 7-26 12/24/2017 5:51am 12/24/2017 6:48am Creatinine 3.04 mg/dL # H 0.57-1.11 12/24/2017 5:51am 12/24/2017 6:48am BUN/Creatinine Ratio 6 6-25 12/24/2017 5:51am 12/24/2017 6:48am Estimat Glomerular Filtration Rate 16 ML/MIN L 60- 12/24/2017 5:51am 11/2017 6:48am Ranges were taken from the National Kidney Disease Education Program and the National Kidney Foundation literature. Reference ranges: 60 or greater: Normal 16-59 (for 3 consecutive months): Chronic kidney disease 15 or less: Kidney failure Glucose Level 83 mg/dL 74-118 12/24/2017 5:51am 12/24/2017 6:48am Calcium Level 8.4 mg/dL # 8.4-10.2 12/24/2017 5:51am 12/24/2017 6:48am Bedside Glucose 148 mg/dL H 70-120 12/24/2017 4:31pm 12/24/2017 4:40pm Meter ID: [id number] Phosphorus Level 3.3 MG/DL 2.3-4.7 12/23/2017 5:05am 12/23/2017 5:25am Total Bilirubin 0.5 mg/dL 0.2-1.2 12/24/2017 5:51am 12/24/2017 6:48am Aspartate Amino Transf (AST/SGOT) 31 IU/L 5-34 12/24/2017 5:51am 2017 6:48am Alanine Aminotransferase (ALT/SGPT) 13 IU/L 0-55 12/24/2017 5:51am 11/2017 6:48am Total Protein 7.3 g/dL 6.5-8.1 12/24/2017 5:51am 12/24/2017 6:48am Albumin 3.1 g/dL L 3.5-5.0 12/24/2017 5:51am 12/24/2017 6:48am Globulin 4.2 g/dL H 2.3-3.5 12/24/2017 5:51am 12/24/2017 6:48am Albumin/Globulin Ratio 0.7 L 0.8-2.0 12/24/2017 5:51am 12/24/2017 6: 48am Alkaline Phosphatase 147 IU/L 40-150 12/24/2017 5:51am 12/24/2017 6: 48am Creatine Kinase 46 IU/L 29-168 12/22/2017 12:02pm 12/22/2017 12:54pm Creatine Kinase MB 1.20 ng/mL 0-5.0 12/22/2017 12:02pm 12/22/2017 1: 03pm Troponin I < 0.001 ng/mL 0-0.300 12/22/2017 12:02pm 12/22/2017 1:03pm Hepatitis B Surface Antibody, Quant 9.2 mIU/mL L Immunity>9.9 12/23/2017 7:50am 12/24/2017 12:55pm Verified by repeat analysis Status of Immunity Anti-HBs Level Inconsistent with Immunity 0.0 - 9.9 Consistent with Immunity >9.9 Hepatitis B Core Total Antibody Negative Negative 12/23/2017 7:50am 12/24/2017 12:55pm Performed at: [facility] [id number] Immigration Manager: Kenny Garcia MD, Phone: [phone] Hepatitis B Surface Antigen Negative Negative 12/23/2017 7:50am 12/24 12:55pm Parathyroid Hormone 144 pg/mL H 15-65 12/23/2017 7:50am 12/24/2017 7: 39am Calcium (Send out) 8.7 mg/dL 8.7-10.2 12/23/2017 7:50am 12/24/2017 7: 39am Parathyroid Hormone Interpretation Comment . 12/23/2017 7:50am 2017 7:39am Interpretation Intact PTH Calcium (pg/mL) (mg/dL) Normal 15 - 65 8.6 - 10.2 Primary Hyperparathyroidism >65 >10.2 Secondary Hyperparathyroidism >65 <10.2 Non-Parathyroid Hypercalcemia <65 >10.2 Hypoparathyroidism <15 < 8.6 Non-Parathyroid Hypocalcemia 15 - 65 < 8.6 Performed at: [facility] [address] [id number] Immigration Manager: Kenny Garcia MD, Phone: [phone] Performed at: [facility] [address] [id number] Immigration Manager: Cem Nathan MD, Phone: [phone] Procedures Procedure Status Date Provider(s) Unsched dialysis ESRD pt hos Completed 06/21/17 FARAZ BUSTILLO MD X-ray of chest, two views Active 06/21/17 FARAZ BUSTILLO MD Encounters Encounter Location Arrival/Admit Date Discharge/Depart Date Attending Provider Discharged Inpatient [facility] 12/22/17 5:03pm 12/24/17 8:20pm CIARA CARNES MD Registered Clinic [facility] 11/19/17 4:48pm VICKY CABALLERO DPM Registered Clinic [facility] 10/26/17 12:00pm VICKY CABALLERO DPM Registered Clinic [facility] 09/21/17 9:35am VICKY CABALLERO DPM Registered Clinic [facility] 08/27/17 11:53am VICKY CABALLERO DPM Departed Emergency Room [facility] 06/21/17 7:09pm 7:59am FARAZ BUSTILLO MD Registered Clinic [facility] 06/15/17 9:06am ANDREW JEREZ Registered Clinic [facility] 04/06/17 10:31am ANDREW JEREZ
--- OUTSIDE RECORDS SUMMARY | 2018-01-14 22:11 | XMS REPORT | Clinical Summary ---
Author Author [facility] Organization [facility] Address Unknown Phone Unavailable Care Team Providers Care Conductor/Brakeman Name Role Phone Theodore Patten MD PCP [...] MG tablet (three) times a day. 16 insulin lispro (HumaLOG) Inject 0-5 Units under 10 mL 12 12/29/19 100 unit/mL injection the skin 3 (three) times 17 17 a day before meals for 30 days. Active Problems Problem Noted Date Hypotension 12/21/2016 Family History Medical History Relation Name Comments Diabetes Brother Heart attack Father Aneurysm Mother Cataracts Mother Heart attack Mother Diabetes Sister Heart attack Sister Relation Name Status Comments Brother Father Mother Sister Social History Tobacco Use Types Packs/Day Years Used Date Never Smoker Alcohol Use Drinks/Week oz/Week Comments No Sex Assigned at Date Recorded Not on file Last Filed Vital Signs Not on file Plan of Treatment Health Maintenance Due Date Last Done Comments PAP SMEAR 1983 COLONOSCOPY 2012 MAMMOGRAM 2012 INFLUENZA VACCINE 05/25/2017 Results Not on fileafter 01/13/2017 Insurance Payer Benefit Subscriber ID Type Phone Address Plan / Group MEDICARE MEDICARE xxxxxxxxxx Medicare [place], [place] PART A AND B AARP AARP xxxxxxxxxxx Commercial SU[address] [place] [phone]
--- NOTE | 2018-01-15 01:12 | Diagnostic Imaging Report ---
History: Fall. Comparison studies: None Technique: Axial images were obtained through the cervical region.. Coronal and sagittal images reconstructed from the axial data.. Intravenous contrast: None Findings: Fractures: None. Soft tissue injuries: None. Atlantoaxial articulation: Intact. Alignment: Loss of normal cervical lordosis is either positional or due to muscle spasm. No scoliosis. Cervicomedullary junction: No abnormalities. The foramen magnum is patent. Soft tissues: No abnormalities. Vertebrae: No fractures, infection or neoplasm. Nonspecific 1.4 x 1 cm lytic lesion in the right transverse process of C7. Degenerative changes: Mild degenerative disc disease at C6-C7. IMPRESSION: 1. No acute cervical spine fracture. Loss of normal cervical lordosis is either positional or due to muscle spasm. 2. Ligament, spinal cord and or vascular abnormalities cannot be excluded on the basis of this examination. Signed by: Dr. Sakina Mena M.D. on 01/15/2018 1:09 AM
--- NOTE | 2018-01-15 01:12 | Diagnostic Imaging Report ---
EXAMINATION: Head CT without contrast. HISTORY:Fall. COMPARISON:CT brain from 11/05/2016. TECHNIQUE: Multidetector axial images were obtained from the foramen magnum to the vertex without contrast. The images were reconstructed using brain and bone algorithms. Thin section brain images were reformatted into coronal and sagittal planes. Intravenous contrast: None IMAGE QUALITY: Acceptable. FINDINGS: Skull/scalp: No lytic or blastic. lesions. No surgical changes. Parenchyma: No abnormal density. No acute hemorrhage, mass or acute major vascular territorial infarct. Arteries: No density suggestive of thrombosis. Dural sinuses: No abnormal density suggestive of thrombosis. Ventricles: No hydrocephalus or displacement. Extra-axial spaces: No abnormal density. Brain volume: Normal for age. Craniocervical junction: No mass, Chiari malformation, or basilar invagination. Sella: No mass. Paranasal/mastoid sinuses: Imaged portions unremarkable. IMPRESSION: No intracranial abnormality. Signed by: Dr. Sakina Mena M.D. on 01/15/2018 1:08 AM
--- NOTE | 2018-01-15 01:19 | Diagnostic Imaging Report ---
TAI GRANT D 1960 DATE OF EXAM: 01/15/2018 EXAM: Right ankle x-ray, AP, lateral and oblique INDICATION: Fall right ankle pain COMPARISON: None FINDINGS: BONES: No acute fractures. JOINTS: No malalignment. SOFT TISSUES: Soft tissue swelling of the ankle IMPRESSION: Soft tissue swelling of the right ankle without underlying fracture. Dictated by Dr. Stack January 15, 2018 at 1226 hours. Signed by: Dr. Columba Stack M.D. on 01/15/2018 1:15 AM
[2018-01-15] MEDS ORDERED: HYDROCODONE/APAP 7.5MG-325MG 1 EA TAB PO PRN (01:30)
== END 2018-01-15 01:58 | disposition home or self-care (01) ==
LOC: ER 22:08
DX: S93.431A Sprain of tibiofibular ligament of right ankle, initial encounter (principal); W01.0XXA Fall on same level from slipping, tripping and stumbling without subsequent striking against object, initial encounter; Y92.008 Other place in unspecified non-institutional (private) residence as the place of occurrence of the external cause; M79.7 Fibromyalgia; G62.9 Polyneuropathy, unspecified
CPT/HCPCS: 70450; 72125; 99283

== ENCOUNTER → 2018-02-01 | Outpatient (CLI) | payer MEDICARE ==
--- NOTE | 2018-02-02 08:16 | Diagnostic Imaging Report ---
TECHNIQUE: Magnetic resonance imaging of the RIGHT ANKLE was performed WITHOUT injected contrast. COMPARISON: None available. HISTORY: Right ankle pain FINDINGS: LIGAMENTS: Medial Complex: Intact Lateral Complex: Intact, including the tibiofibular ligaments. TENDONS: Medial: Intact Lateral: Intact Anterior: Intact Achilles: Complete tear of the distal Achilles tendon from the insertion with 3.5 cm proximal retraction. Underlying Achilles tendinopathy. BONES: Scattered edema within the hindfoot. No acute fracture or osteonecrosis. JOINTS: Cartilage: Ankle, midfoot, and hindfoot degenerative arthrosis. Other: Fluid within the joints is within physiologic limits. SOFT TISSUES: Thickening of the plantar fascia without edema. IMPRESSION: Complete tear of the distal Achilles tendon from the insertion with underlying tendinosis. 3.5 cm retraction. Signed by: Dr. Carlton Hubbard M.D. on 02/02/2018 8:13 AM
== END | disposition home or self-care (01) ==
LOC: MRI 15:10
PROVIDERS: ATTEND Specialist
DX: S90.01XA Contusion of right ankle, initial encounter (principal); S86.011A Strain of right Achilles tendon, initial encounter

== ENCOUNTER → 2018-02-04 | Outpatient (CLI) | payer MEDICARE ==
--- NOTE | 2018-02-04 13:22 | Diagnostic Imaging Report ---
PROCEDURE: Frontal and lateral views of the chest. COMPARISON: 12/23/17 INDICATIONS: PRE-OP FINDINGS: Lines/tubes: None. Lungs: The lungs are well inflated and clear. There is no evidence of pneumonia or pulmonary edema. Pleura: There is no pleural effusion or pneumothorax. Heart and mediastinum: The heart and the mediastinum are normal. Aorta is mildly tortuous. Unchanged mild thickening of the right paratracheal stripe. Bones: No acute bony abnormality. IMPRESSION: 1. No acute cardiopulmonary disease. Dictated by: Israel Bernard M.D. on 02/04/2018 at 13:23 Electronically approved by: Israel Bernard M.D. on 02/04/2018 at 13:23
== END ==
LOC: RAD 12:38
PROVIDERS: ATTEND Family Medicine
DX: Z01.810 Encounter for preprocedural cardiovascular examination (principal)
CPT/HCPCS: 71046

== ENCOUNTER → 2018-02-17 | Day surgery (SDC) | payer MEDICARE ==
[~2018-02-17] MED LIST changes: +ACETAMINOPHEN 1000 MG/100 ML IV ONE; +AMLODIPINE-BEN1 EAC2 PO; +CALCIUM ACETAT667 MG PO; +CEFAZOLIN SOD 2 GM/D5W 50ML 50 ML IV ONE; +DEXAMETHASONE SOD PHOS INJ 4 MG/ML VIAL ONE; +FENTANYL CITRATE/PF 100MCG/2 ML INJ ONE; +HYDROMORPHONE 1MG/1ML INJ ONE; +KETAMINE HCL INJ 50 MG/ML 10 ML VIAL ONE; +LEVEMIR100 UNIT/1 SQ; +LIDOCAINE HCL 2% LOCAL INJ 5 ML SDV VIAL INJ ONE; +MIDAZOLAM HCL 2 MG/2 ML VIAL ONE; +NORTRIPTYLINE H10 MG PO; +PROPOFOL IV EMULSION 10 MG/ML 20 ML VIAL ONE; +ROCURONIUM BROMIDE 10 MG/ML 5ML VIAL ONE; +SEVOFLURANE INHAL SOLN 250 ML PEN BTL ONE; +SODIUM CHLORIDE 0.9% 500ML 500 ML ONE; +SUMATRIPTAN SU100 MG PO; +ZETIA10 MG PO
[2018-02-17 06:29] LABS: BASOPHILS % 0.2 % (0.0-1.0); EOSINOPHILS # (AUTO) 0.2 (0.0-0.4); EOSINOPHILS % 4.5 % (0.0-6.0); HEMATOCRIT 33.4 % (34.2-44.1); HEMOGLOBIN 10.5 g/dL (12.0-16.0); LYMPHOCYTES # (AUTO) 1.1 (1.0-3.2); MEAN CORPUSCULAR HEMOGLOBIN 32.6 pg (28-32); MEAN CORPUSCULAR HGB CONC 31.4 g/dL (31-35); MEAN CORPUSCULAR VOLUME 103.7 fL (81-99); MONOCYTES # (AUTO) 0.5 (0.2-0.8); MONOCYTES % 9.6 % (4.4-11.3); NEUTROPHILS # (AUTO) 3.1 (2.1-6.9); NEUTROPHILS % 61.7 % (38.7-80.0); PLATELET COUNT 206 x10e3/uL (140-360); RED BLOOD COUNT 3.22 x10e6/uL (3.6-5.1); RED CELL DISTRIBUTION WIDTH 15.9 % (11.7-14.4)
[2018-02-17 06:43] LABS: INR 1.16; PROTHROMBIN TIME 13.9 seconds (11.9-14.5)
[2018-02-17 06:44] LABS: ANION GAP 20.3 mmol/L (8-16); CREATININE, SERUM 3.74 mg/dL (0.57-1.11); PARTIAL THROMBOPLASTIN TIME 35.4 seconds (23.8-35.5); POTASSIUM 4.3 mmol/L (3.5-5.1)
--- OUTSIDE RECORDS SUMMARY | 2018-02-17 06:53 | XMS REPORT | Clinical Summary ---
Author Author [facility] Organization [facility] Address Unknown Phone Unavailable Care Team Providers Care Intake Nurse Name Role Phone Theodore Patten MD PCP [...] MG tablet (three) times a day. 16 Active Problems Problem Noted Date Hypotension 12/21/2016 [...] PAP SMEAR 1983 COLONOSCOPY 2012 MAMMOGRAM 2012 SHINGRIX VACCINE (#1) 2012 INFLUENZA VACCINE 05/25/2018 Results Not on fileafter 02/16/2017 Insurance Payer Benefit Subscriber ID Type Phone Address Plan / Group MEDICARE MEDICARE xxxxxxxxxx Medicare [place], [place] PART A AND B AARP AARP xxxxxxxxxxx [place] [address]
--- OUTSIDE RECORDS SUMMARY | 2018-02-17 06:54 | XMS REPORT | Continuity of Care Document ---
Author Author [facility] Organization [facility] Address [address] [place] [address] Phone Unavailable Care Team Providers Care Senior Treasury Consultant Name Role Phone ANDREW JEREZ PCP Insurance Providers Guarantor Tai Grant Address [address] [place] [address] Email [email or web address] Payer AARP Policy Number [id number] Subscriber's Name Tai Grant Relationship 18 Self / Same As Patient Group Number PLAN A Group Name UNEMPLOYED Effective Date 17 Payer Medicare A & B Policy Number [id number] Subscriber's Name Tai Grant Relationship 18 Self / Same As Patient Group Number [id number] Group Name UNEMPLOYED Effective Date 12 Advance Directives Directive Response Recorded Date/Time Does the patient have an advance directive? No 12/23/17 9:11pm If yes, is advance directive on file with [facility]? No 04/14/16 7:19pm If not on file with [facility] will patient provide a copy? No 05/06/16 1:20pm Problems Medical Problem Onset Date Status Chest [...] Day Divalproex Sodium (Depakote Er) 500 Mg [id number] 500 Mg Oral Twice A Day Duloxetine Hcl (Cymbalta) 20 Mg Capcr 30 Mg Oral Twice A Day 30 Cap Esomeprazole Magnesium (Nexium) 40 Mg Capsule.dr 20 Mg Oral Daily PROTONIX THERAPEUTIC SUBSTITUTE FOR NEXIUM PER [facility] Gemfibrozil 600 Mg Tablet 600 Mg Oral [...] .prior And Mid Tx Omeprazole 40 Mg Capsule.dr 20 Mg Oral Daily Pregabalin (Lyrica) 75 [...] information available. Plan of Care Discharge Date 01/15/18 1:58am Disposition HOME, SELF-CARE Condition at Discharge Stable Instructions/Education Provided Sprains - Ankle Forms Provided Work/School Excuse Prescriptions See Medication Section Referrals ANDREW JEREZ Order Date: Call for an appointment Address: [address] [place] [address] ORLIN PORTER MD Order Date: Call for an appointment Address: [address] [facility] [address] [place] [address] ADRIENNE VALLES MD Order Date: Call for an appointment Address: [address] [facility] [address] [place] [address] Additional Instructions/Education TAKE MEDICATIONS PRESCRIBED FOLLOW-UP WITH YOUR PRIMARY CARE PROVIDER AND ORTHOPEDIST Functional Status No functional status information available. Allergies, Adverse Reactions, Alerts Allergen Type Severity [...] 12/24/2017 8:00pm Height 4 ft 7 in 01/14/2018 10:52pm Weight 180 lb 01/14/2018 10:52pm Body Mass Index 41.8 kg/m^2 01/14/2018 10:52pm Results Laboratory Results Test Name Result Units Flags Reference Collection Date/Time Result Date/ Time Comments White Blood Count 6.06 x10e3/uL 4.8-10.8 12/23/2017 4:30am 12/23/2017 4 :41am Red Blood Count 2.82 x10e6/uL L 3.6-5.1 12/23/2017 4:3012/23/2017 4: 41am Hemoglobin 9.1 g/dL L 12.0-16.0 12/23/2017 4:12/23/2017 4:41am Hematocrit 26.8 % L 34.2-44.1 12/23/2017 4:12/23/2017 4:41am Mean Corpuscular Volume 95.0 fL # 81-99 12/23/2017 4:12/23/2017 4: 41am Mean Corpuscular Hemoglobin 32.3 pg H 28-32 12/23/2017 4:2017 4:41am Mean Corpuscular Hemoglobin Concent 34.0 g/dL 31-35 12/23/2017 4:12/23/2017 4:41am Red Cell Distribution Width 22.2 % H 11.7-14.4 12/23/2017 4:2017 4:41am Platelet Count 140 x10e3/uL 140-360 12/23/2017 4:12/23/2017 4: 41am Neutrophils (%) (Auto) 79.0 % 38.7-80.0 12/23/2017 4:12/23/2017 4: 41am Lymphocytes (%) (Auto) 7.1 % L 18.0-39.1 12/23/2017 4:12/23/2017 4: 41am Monocytes (%) (Auto) 10.4 % 4.4-11.3 12/23/2017 4:12/23/2017 4: 41am Eosinophils (%) (Auto) 2.0 % 0.0-6.0 12/23/2017 4:12/23/2017 4: 41am Basophils (%) (Auto) 0.2 % 0.0-1.0 12/23/2017 4:12/23/2017 4:41am IM GRANULOCYTES % 1.3 % H 0.0-1.0 12/23/2017 4:3012/23/2017 4:41am Neutrophils # (Auto) 4.8 2.1-6.9 12/23/2017 4:12/23/2017 4:41am Lymphocytes # (Auto) 0.4 L 1.0-3.2 [...] 70-120 12/24/2017 4:31pm 12/24/2017 4:40pm Meter ID: [id number] Phosphorus Level 3.3 MG/DL 2.3-4.7 12/23/2017 5:05am [...] Negative 12/23/2017 7:50am 12/24/2017 12:55pm Performed at: - [facility] [id number] Web Portal Developer: Kenny Garcia MD, Phone: [phone] Hepatitis B Surface Antigen Negative Negative 12/23/2017 [...] < 8.6 Performed at: HD - [facility] [address] [id number] Web Portal Developer: Kenny Garcia MD, Phone: [phone] Performed at: BN - [facility] [address] [id number] Web Portal Developer: Cem Nathan MD, Phone: [phone] Procedures Procedure Status Date Provider(s) Unsched dialysis ESRD pt hos Completed 06/21/17 FARAZ BUSTILLO MD TRANSFUSE NONAUT RED BLOOD CELLS IN PERIPH VEIN, PERC Completed 12/22/17 JASPER LUGO MD PERFORMANCE OF URINARY FILTRATION, <6 HRS/DAY Completed 12/22/17 STANISLAV ELIZALDE PERFORMANCE OF URINARY FILTRATION, <6 HRS/DAY Completed 12/23/17 STANISLAV ELIZALDE PERFORMANCE OF URINARY FILTRATION, <6 HRS/DAY Completed 12/24/17 STANISLAV ELIZLADE X-ray of chest, two views Active 06/21/17 FARAZ BUSTILLO MD Computed tomography of brain without radiopaque contrast Active 01/14/18 LEONIE REILLY MD Computed tomography of cervical spine without contrast Active 01/14/18 LEONIE REILLY MD Encounters Encounter Location Arrival/Admit Date Discharge/Depart Date Attending Provider Registered Emergency Room [facility] 01/14/18 10:08pm LEONIE REILLY MD Registered Clinic [facility] 12/31/17 5:00pm VICKY CABALLERO DPM Discharged Inpatient [facility] 12/22/17 5:03pm 12/24/17 8:20pm CIARA CARNES MD Registered Clinic [facility] 11/19/17 4:48pm VICKY CABALLERO DPM Registered Clinic [facility] 10/26/17 12:00pm VICKY CABALLERO DPM Registered Clinic [facility] 09/21/17 9:35am VICKY CABALLERO DPM Registered Clinic [facility] 08/27/17 11:53am VICKY CABALLERO DPM Departed Emergency Room [facility] 06/21/17 7:09pm 7:59am FARAZ BUSTILLO MD Registered Clinic [facility] 06/15/17 9:06am ANDREW JEREZ Registered Clinic [facility] 04/06/17 10:31am ANDREW JEREZ
--- NOTE | 2018-02-18 18:57 | Operative Report ---
DATE OF PROCEDURE: February 17, 2018 PREOPERATIVE DIAGNOSIS: Right Achilles tendon avulsion. POSTOPERATIVE DIAGNOSIS: Right Achilles tendon avulsion. PROCEDURE PERFORMED: Right Achilles tendon reconstruction. DIESEL ENGINE FITTER: Tiffanie Cardenas. ANESTHESIA: General endotracheal intubation. IV FLUIDS: Per the anesthesia record. BRIEF DESCRIPTION OF THE PATIENT'S OPERATIVE PROCEDURE: Ms. Avila was taken to the operating room and placed in a prone position on operating room table. Following induction of general anesthesia, as well as endotracheal intubation, the patient's right lower extremity was examined under anesthesia. Examination of the lower extremity demonstrated bruising and swelling on the right lower extremity at the level of the Achilles tendon. She had a palpable defect at the insertion site for the Achilles tendon. The patient's bilateral lower extremities were prepped and draped in standard surgical fashion. The case was begun by creating incision along the medial border of the Achilles and was extended through the skin only. Blunt dissection was used to deepen the incision. The paratenon was identified. The paratenon was opened and a near complete avulsion of the Achilles tendon was identified. There was a significant portion of the distal aspect of the Achilles tendon that was devitalized. This was debrided. The remaining tissue attached to the calcaneous was elevated and the insertion site was debrided to a bleeding bony bed. The Achilles tendon was mobilized and the anterior surface of the paratenon was opened allowing for greater mobility of paratenon in the region of the Achilles tendon injury. Four bi-absorbable suture anchors were inserted into the Achilles tendon and then using a suture bridge technique the Achilles tendon was advanced and suture was passed through the Achilles tendon and using push-lock anchors reaffixed to the heel broadly. This resulted in reapproximation of the tendon into its normal insertion site. Examination of the Achilles tension compared to the unaffected side demonstrated symmetrical tension in the Achilles tendon. The wound was copiously irrigated. The sutures were then cut and the paratenon was repaired over the tendon. The remaining soft tissues were closed in a multilayer fashion. Sterile dressings were applied as well as a plantar-flexed well-padded splint. The patient was then awakened and taken to the post anesthesia care unit in stable condition. Job#: [id number]
== END | disposition home or self-care (01) ==
LOC: OR 06:51
PROVIDERS: ATTEND Specialist
PROC: 0LQN0ZZ Repair Right Lower Leg Tendon, Open Approach (ICD-10-PCS; principal; 2018-02-17 07:00)
DX: S86.091A Other specified injury of right Achilles tendon, initial encounter (principal); M79.7 Fibromyalgia; G47.33 Obstructive sleep apnea (adult) (pediatric); E11.22 Type 2 diabetes mellitus with diabetic chronic kidney disease; I12.0 Hypertensive chronic kidney disease with stage 5 chronic kidney disease or end stage renal disease; N18.6 End stage renal disease; K29.70 Gastritis, unspecified, without bleeding; K21.9 Gastro-esophageal reflux disease without esophagitis; X58.XXXA Exposure to other specified factors, initial encounter; Z01.810 Encounter for preprocedural cardiovascular examination; Z99.2 Dependence on renal dialysis; Z79.84 Long term (current) use of oral hypoglycemic drugs; Z79.4 Long term (current) use of insulin; Z79.02 Long term (current) use of antithrombotics/antiplatelets; Z68.41 Body mass index [BMI] 40.0-44.9, adult; Z86.718 Personal history of other venous thrombosis and embolism
CPT/HCPCS: 27650; 36415; 80048; 82948; 85025; 85610; 85730; 93005; C1713; J1100; J1170; J2001; J2250; J7040

== ENCOUNTER 2018-03-19 05:45 | Inpatient (IN) | payer MEDICARE ==
[~2018-03-19] VITALS: Ht 144.8 cm; Wt 87.1 kg
[~2018-03-19 05:45] MED LIST changes: -ACETAMINOPHEN 1000 MG/100 ML IV ONE; -CEFAZOLIN SOD 2 GM/D5W 50ML 50 ML IV ONE; -DEXAMETHASONE SOD PHOS INJ 4 MG/ML VIAL ONE; -FENTANYL CITRATE/PF 100MCG/2 ML INJ ONE; -HYDROMORPHONE 1MG/1ML INJ ONE; -KETAMINE HCL INJ 50 MG/ML 10 ML VIAL ONE; -LIDOCAINE HCL 2% LOCAL INJ 5 ML SDV VIAL INJ ONE; -MIDAZOLAM HCL 2 MG/2 ML VIAL ONE; -PROPOFOL IV EMULSION 10 MG/ML 20 ML VIAL ONE; -ROCURONIUM BROMIDE 10 MG/ML 5ML VIAL ONE; -SEVOFLURANE INHAL SOLN 250 ML PEN BTL ONE; -SODIUM CHLORIDE 0.9% 500ML 500 ML ONE
--- OUTSIDE RECORDS SUMMARY | 2018-03-19 05:49 | XMS REPORT | Clinical Summary ---
Author Author [facility] Organization [facility] Address Unknown Phone Unavailable Care Team Providers Care Fondant Puff Maker Name Role Phone Theodore Patten MD [...] Health Maintenance Due Date Last Done Comments CERVICAL CANCER SCREENING 1983 BREAST CANCER SCREENING 2012 COLON CANCER SCREENING 2012 SHINGRIX VACCINE (#1) 2012 INFLUENZA VACCINE 05/25/2018 Results Not on fileafter 03/18/2017 Insurance Payer Benefit Subscriber ID Type Phone Address Plan / Group MEDICARE MEDICARE xxxxxxxxxx Medicare [facility] [place] PART A AND B AARP AARP xxxxxxxxxxx [place] [address] [place] [address]
[2018-03-19] MEDS ORDERED: PIPERACILLIN/TAZO 2.25 GM 50 ML IV STA (05:57)
[2018-03-19] MEDS ORDERED: VANCOMYCIN 1GM/NS 250 ML 250 ML IV STA (05:57)
[2018-03-19] MEDS ORDERED: MORPHINE SULFATE 2 MG/ML SYR IV STA (05:57)
[2018-03-19] MEDS ORDERED: ONDANSETRON HCL 4 MG ORAL DISINTEGRATING TAB PO PRN (06:00)
[2018-03-19 06:09] LABS: BASOPHILS % 0.2 % (0.0-1.0); EOSINOPHILS # (AUTO) 0.2 (0.0-0.4); HEMATOCRIT 28.4 % (34.2-44.1); HEMOGLOBIN 8.9 g/dL (12.0-16.0); LYMPHOCYTES # (AUTO) 0.8 (1.0-3.2); LYMPHOCYTES % 7.7 % (18.0-39.1); MEAN CORPUSCULAR HEMOGLOBIN 31.8 pg (28-32); MEAN CORPUSCULAR HGB CONC 31.3 g/dL (31-35); MEAN CORPUSCULAR VOLUME 101.4 fL (81-99); MONOCYTES % 9.1 % (4.4-11.3); NEUTROPHILS # (AUTO) 8.2 (2.1-6.9); NEUTROPHILS % 78.9 % (38.7-80.0); PLATELET COUNT 183 x10e3/uL (140-360); RED CELL DISTRIBUTION WIDTH 14.3 % (11.7-14.4)
[2018-03-19 06:34] LABS: ALBUMIN 2.8 g/dL (3.5-5.0); ALBUMIN/GLOBULIN RATIO 0.6 (0.8-2.0); ANION GAP 17.7 mmol/L (8-16); CALCIUM 9.2 mg/dL (8.4-10.2); CREATININE, SERUM 3.54 mg/dL (0.57-1.11); POTASSIUM 3.7 mmol/L (3.5-5.1)
--- NOTE | 2018-03-19 06:40 | Diagnostic Imaging Report ---
EXAM: ANKLE 3 + VIEWS RIGHT, AP, lateral and oblique INDICATION: Huge wound on back of ankle COMPARISON: None FINDINGS: BONES: No acute fractures. JOINTS: No malalignment. SOFT TISSUES: Soft tissue swelling of the ankle. Soft tissue defect posterior to the Achilles tendon. IMPRESSION: No radiographic evidence of osteomyelitis. Signed by: Dr. Columba Stack M.D. on 03/19/2018 6:36 AM
[2018-03-19] MEDS ORDERED: SODIUM CHLORIDE FLUSH 10 ML SYR INJ PRN (07:00)
[2018-03-19] MEDS ORDERED: PIPERACILLIN/TAZO 2.25 GM 50 ML IV SCH (07:00)
[2018-03-19] MEDS ORDERED: MORPHINE SULFATE 2 MG/ML SYR IV PRN (07:00)
[2018-03-19] MEDS ORDERED: ACETAMINOPHEN 325 MG TAB PO PRN (07:00)
[2018-03-19] MEDS ORDERED: DEXTROSE 50% SYRINGE 50 ML IV PRN (07:00)
[2018-03-19] MEDS: INSULIN REGULAR, HUMAN 100 UNIT/1 ML 3ML VIAL SQ SCH ×4 (07:30→20:08)
[2018-03-19 09:23] LABS: EOSINOPHILS % (MANUAL) 1 % (0-7); LYMPHOCYTES % (MANUAL) 10 % (19-48); MONOCYTES % (MANUAL) 2 % (3.4-9.0); NEUTROPHILS % (MANUAL) 87 % (40-74); PLATELET ESTIMATE ADEQUATE; PLATELET MORPHOLOGY COMMENT NORMAL; RBC MORPHOLOGY COMMENT NORMAL
--- OUTSIDE RECORDS SUMMARY | 2018-03-19 09:52 | XMS REPORT | Clinical Summary ---
Author Author [facility] Organization [facility] Address Unknown Phone Unavailable Care Team Providers Care Head Doffer Name Role Phone Theodore Patten MD PCP [...] Plan / Group MEDICARE MEDICARE xxxxxxxxxx Medicare [facility] [place] PART A AND B AARP AARP xxxxxxxxxxx [place] [address]
[2018-03-19] MEDS ORDERED: HYDROMORPHONE 1MG/1ML INJ IV PRN (13:00)
[2018-03-19] MEDS ORDERED: HYDRALAZINE HCL 20 MG/ML VIAL IV PRN (13:15)
--- NOTE | 2018-03-19 13:57 | Diagnostic Imaging Report ---
EXAMINATION: CHEST SINGLE (PORTABLE) INDICATION: \S\CRACKLES COMPARISON: Chest radiograph 12/23/2017 FINDINGS: AP view TUBES and LINES: None. LUNGS: Lungs are well inflated. Central congestion and interstitial edema. PLEURA: No pleural effusion or pneumothorax. HEART AND MEDIASTINUM: Stable mild enlargement of the cardiac silhouette. BONES AND SOFT TISSUES: No acute osseous lesion. Soft tissues are unremarkable. UPPER ABDOMEN: No free air under the diaphragm. IMPRESSION: Cardiomegaly with interstitial edema. Signed by: DR. Steven Beltran MD on 03/19/2018 1:54 PM
[2018-03-19] MEDS ORDERED: SODIUM CHLORIDE 0.9% 250ML 250 ML ONE (14:34)
[2018-03-19] MEDS: METRONIDAZOLE 500MG/NS 100ML 100 ML IV SCH ×2 (14:43→22:00)
[2018-03-19] MEDS ORDERED: CYMBALTA30 MG (15:06)
[2018-03-19 16:00] VITALS: BP 121/57
[2018-03-19] MEDS: HYDROMORPHONE 2MG/ML INJ IV PRN ×2 (16:01→20:15)
--- NOTE | 2018-03-19 16:51 | Consultation ---
DATE OF CONSULTATION: March 19, 2018 ADMITTING PHYSICIAN: Dr. Carlton Marino. REASON FOR ADMISSION: Cellulitis of the right foot. REASON FOR CONSULTATION: Management of end-stage renal disease. HISTORY OF PRESENT ILLNESS: The patient examined, chart reviewed, events noted. Thank you Dr. Carlton Marino for this opportunity to participate in the care of this lady whom I have known for several years now. Patient is a 57-year-old Latin-Sammarinese female with past medical history significant for type 2 diabetes, obesity, end-stage renal disease, hypertension, gastroesophageal reflux disease, dyslipidemia, and depression. Patient has been admitted to almost all the hospitals in this area. Patient also has a history of chronic pain syndrome and has a pain medication seeking behavior. Patient goes to dialysis in [facility] in [place]. Patient went for dialysis on Wednesday, and after couple of hours, took herself off because of pain, which is not quite unusual for her to do. Apparently, patient has had severe pain in the leg and therefore she decided to come to the emergency department of [facility] and has been admitted for cellulitis of the right foot. REVIEW OF SYSTEMS: The patient denies having any fever, chills, rigors, nausea, vomiting, diarrhea, dizziness, or vertigo. She is obese, has had gastric bypass surgery done, and has been into the hospital several times because of abdominal pain. PAST MEDICAL HISTORY 1. Type 2 diabetes. 2. Depression. 3. End-stage renal disease. 4. Dyslipidemia. 5. Obesity. 6. Gastroesophageal reflux disease. 7. Neuropathy. 8. Several admissions for abdominal pain. PAST SURGICAL HISTORY 1. Gastric bypass surgery. 2. Placement of AV fistula. 3. Surgery for peripheral vascular disease. 4. Surgery for left leg fracture. 5. Surgery for her Achilles heel; that was done on the right leg 3 weeks ago. ALLERGIES: APPARENTLY ALLERGIC TO NIFEDIPINE, UNCLEAR OF THE MANIFESTATIONS. MEDICATIONS: Reviewed. FAMILY HISTORY: Father of CVA. SOCIAL HISTORY: The patient is single, lives at home. No history of tobacco, alcohol, or substance abuse. PHYSICAL EXAMINATION GENERAL: Patient is alert, awake, and oriented, not in distress, not in pain but should you ask, she would claim to be in severe pain. VITAL SIGNS: Stable with a temperature of 99.1 degrees Fahrenheit, pulse rate of 80 per minute, respiratory rate of 20 per minute, and blood pressure of 127/66 mmHg. HEENT: Unremarkable. NECK: Supple. No jugular venous distention. CHEST: Good air entry bilaterally. CARDIOVASCULAR: Regular rate and rhythm. ABDOMEN: Flabby, nontender. EXTREMITIES: Her right foot is in bandage. I have not opened the bandage and examined, but has got a nonhealing ulcer with lot of tissue in it. CENTRAL NERVOUS SYSTEM: Nonfocal. DIAGNOSTIC DATA: Her white count is 10.4, hemoglobin 8.9, hematocrit 28.4, and a platelet count of 183. Her chemistries revealed serum sodium of 136, potassium of 3.7, chloride 97, bicarb 25, BUN 27, creatinine 3.54, and a glucose of 101. ASSESSMENT: In summary, the patient is a 57-year-old lady with: 1. End-stage renal disease. 2. Type 2 diabetes. 3. Hypotension. 4. Hypertension. 5. Non-healing foot ulcer. PLAN 1. At this point, we would like to leave the cellulitis/foot ulcer to infectious disease and wound care physician. 2. We would leave other medical problems for Dr. Carlton Marino. 3. Patient will be on dialysis on Wednesday, Wednesday, and Wednesday schedule. Finally, I would like to thank you Dr. Marino for this opportunity to participate in the care of this lady, and needless to say, we will be very happy to follow this patient with you. Job#: [id number] YOSELYN
[2018-03-19] MEDS: ONDANSETRON HCL 4 MG ORAL DISINTEGRATING TAB PO PRN (16:55)
[2018-03-19] MEDS: HEPARIN SOD (PORCINE) 5,000 UNIT/ML VIAL SC SCH (20:15)
[2018-03-19 20:16] VITALS: BP 117/54
[2018-03-20] VITALS (7 sets, daily range): BP systolic 106–158; BP diastolic 51–68
[2018-03-20] MEDS: HYDROMORPHONE 2MG/ML INJ IV PRN ×8 (03:05→22:04)
[2018-03-20] MEDS: METRONIDAZOLE 500MG/NS 100ML 100 ML IV SCH ×3 (05:28→22:00)
[2018-03-20] MEDS: INSULIN REGULAR, HUMAN 100 UNIT/1 ML 3ML VIAL SQ SCH ×4 (08:00→20:46)
[2018-03-20] MEDS: CEFEPIME HCL 1 GM VIAL IV SCH (08:13)
[2018-03-20] MEDS: ONDANSETRON HCL 4 MG ORAL DISINTEGRATING TAB PO PRN ×2 (08:14→17:17)
[2018-03-20] MEDS: HEPARIN SOD (PORCINE) 5,000 UNIT/ML VIAL SC SCH ×2 (08:30→21:11)
[2018-03-20] MEDS: SEVELAMER CARBONATE 800 MG TAB PO SCH ×3 (11:30→16:47)
[2018-03-20] MEDS: CALCIUM ACETATE 667 MG GELCAP PO SCH ×2 (12:25→16:48)
--- NOTE | 2018-03-20 13:42 | Diagnostic Imaging Report ---
Exam: Head CT without contrast History: Trauma, fall Comparison studies: Head CT 01/14/2018 and 11/05/2016 Technique: Axial images were obtained from the skull base to the vertex. Coronal and sagittal images reconstructed from the axial data. Intravenous contrast: None Findings: Scalp: No abnormalities. Bones: No fractures, blastic or lytic lesions. Brain sulci: Appropriate for age. Ventricles: Normal in size and configuration. No hydrocephalus. Extra-axial spaces: No masses, no fluid collection. Parenchyma: No abnormal densities. No masses, acute hemorrhage, acute or chronic vascular insults. Sellar/suprasellar region: No abnormalities. Craniocervical junction: Patent foramen magnum. No Chiari one malformation. Incidental findings: Atherosclerotic calcifications in the carotid siphons. Interval left lens changes when compared to the previous exam, possibly related to previous cataract surgery/intraocular lens placement (evaluation is limited due to motion artifacts). Findings could be correlated with ophthalmologic history and exam. IMPRESSION: No acute abnormalities. Signed by: Dr. Swapnil Arellano M.D. on 03/20/2018 1:38 PM
[2018-03-20] MEDS: ROPINIROLE HCL 0.25 MG TAB PO SCH ×2 (14:05→21:11)
[2018-03-20] MEDS: PREGABALIN 75 MG CAP PO SCH ×2 (14:05→21:11)
[2018-03-20] MEDS: CARVEDILOL 3.125 MG TAB PO SCH (16:47)
[2018-03-20] MEDS: DULOXETINE HCL 30 MG DELAYED RELEASE PO SCH (16:48)
[2018-03-20] MEDS ORDERED: DEPAKOTE ER 500MG TAB(ONCE DAILY) PO SCH (17:00)
[2018-03-20] MEDS ORDERED: NORTRIPTYLINE HCL 10 MG CAP PO SCH (21:00)
[2018-03-20] MEDS ORDERED: SIMVASTATIN 20 MG TAB PO SCH (21:00)
[2018-03-20] MEDS ORDERED: LOPERAMIDE HCL 2 MG CAP PO ONE (22:00)
[2018-03-21] VITALS (7 sets, daily range): BP systolic 117–155; BP diastolic 57–72
[2018-03-21] MEDS: HYDROMORPHONE 2MG/ML INJ IV PRN ×4 (02:30→19:31)
[2018-03-21] MEDS: METRONIDAZOLE 500MG/NS 100ML 100 ML IV SCH (05:28)
[2018-03-21] MEDS: SEVELAMER CARBONATE 800 MG TAB PO SCH ×3 (07:30→16:30)
[2018-03-21] MEDS: INSULIN REGULAR, HUMAN 100 UNIT/1 ML 3ML VIAL SQ SCH ×3 (07:30→16:30)
[2018-03-21] MEDS: CALCIUM ACETATE 667 MG GELCAP PO SCH ×3 (08:00→17:00)
[2018-03-21] MEDS: CARVEDILOL 3.125 MG TAB PO SCH ×2 (08:00→17:00)
[2018-03-21] MEDS: HEPARIN SOD (PORCINE) 5,000 UNIT/ML VIAL SC SCH (09:00)
[2018-03-21] MEDS: PREGABALIN 75 MG CAP PO SCH ×2 (09:00→15:00)
[2018-03-21] MEDS: ROPINIROLE HCL 0.25 MG TAB PO SCH ×2 (09:00→15:00)
[2018-03-21] MEDS: DULOXETINE HCL 30 MG DELAYED RELEASE PO SCH ×2 (09:00→17:00)
[2018-03-21] MEDS ORDERED: CLOPIDOGREL BISULFATE 75 MG TAB PO SCH (09:00)
[2018-03-21] MEDS ORDERED: EZETIMIBE 10 MG TAB PO SCH (09:00)
[2018-03-21] MEDS: CEFEPIME HCL 1 GM VIAL IV SCH (09:00)
[2018-03-21] MEDS ORDERED: GEMFIBROZIL 600 MG TAB PO SCH (09:00)
[2018-03-21] MEDS: LACTOBACILLUS ACIDOPHILUS CAPSULE PO SCH ×2 (11:10→17:00)
[2018-03-21] MEDS ORDERED: LOPERAMIDE HCL 2 MG CAP PO PRN (11:15)
[2018-03-21] MEDS ORDERED: ACETAMINOPHEN/CODEINE 300MG - 30MG TAB PO PRN (11:30)
[2018-03-21] MEDS: ONDANSETRON HCL 4 MG ORAL DISINTEGRATING TAB PO PRN (12:22)
--- NOTE | 2018-03-21 13:07 | Discharge Summary ---
PRIMARY CARE DOCTOR: Dr. Andrew Jerez FINAL DIAGNOSIS: Nonhealing left Achilles wound/ulcer. SECONDARY DIAGNOSES 1. End-stage renal disease due to diabetes. 2. Uncontrolled hypertension, better. 3. Morbid obesity. CONSULTANTS: Dr. Young, nephrology. PROCEDURES/STUDIES PERFORMED 1. Dialysis. 2. Head CT. HISTORY: Per [facility] and [facility]. HOSPITAL COURSE: The patient had an Achilles tendon avulsion surgery on February 20. However, she has a problem with healing. In fact, recently the wound was debrided. Now it is looking a little better. Given the fact that the patient failed outpatient therapy and also the fact that she lives by herself and the fact that she came in with a fall, I do not think we should continue to pursue outpatient therapy now. A wound culture was done which showed enterococcus and enterobacter. IV antibiotics were started and adjusted accordingly. We have decided that the best thing for her to do is to be transferred to [facility] for IV antibiotics and wound care in addition to dialysis. The patient also needs IV Dilaudid as needed for pain management. The patient was seen and examined today. It took 32 minutes total to discharge this patient. CONDITION ON DISCHARGE: Improved. DISCHARGE MEDICATIONS: Please see medication reconciliation form. Job#: [id number] cc:ANDREW EJREZ MD
[2018-03-21] MEDS ORDERED: CEFTRIAXONE SOD 1 GM VIAL IV SCH (14:00)
[2018-03-21] MEDS ORDERED: SODIUM CHLORIDE 0.9% 1000ML 2,000 ML ONE (14:32)
[2018-03-21] MEDS ORDERED: VANCOMYCIN 1GM/NS 250 ML 250 ML IV ONE (15:15)
[2018-03-21] MEDS ORDERED: CHOLESTYRAMINE 4 GM PACKET PO SCH (17:00)
[2018-03-22] MEDS ORDERED: DEPAKOTE ER 500MG TAB(ONCE DAILY) PO SCH (09:00)
[2018-03-29] MEDS ORDERED: TYLENOL WITH C1 EACH PO (06:28)
[2018-03-29] MEDS ORDERED: LOPERAMIDE2 MG PO (06:28)
[2018-03-29] MEDS ORDERED: HYDRALAZIN20 MG/1 ML IV (06:28)
[2018-03-29] MEDS ORDERED: ACETAMINOP325 MG/10 PO (06:28)
[2018-03-29] MEDS ORDERED: ACIDOPHILUS1 EAC1 PO (06:28)
[2018-03-29] MEDS ORDERED: ATORVASTATIN CA20 MG PO (06:28)
[2018-03-29] MEDS ORDERED: DILAUDID2 MG PO (06:28)
[2018-03-29] MEDS ORDERED: ZOFRAN ODT4 MG SL (06:28)
== END 2018-03-21 20:35 | DRG 862 ==
LOC: ER 05:45 → ERHOLD 09:48 → MED/SURG2 14:01
PROVIDERS: ADMIT Internal Medicine; ATTEND Internal Medicine
PROC: 5A1D70Z Performance of Urinary Filtration, Intermittent, Less than 6 Hours Per Day (ICD-10-PCS; principal; 2018-03-19)
DX: T81.4XXA Infection following a procedure, initial encounter (principal); N18.6 End stage renal disease; L03.115 Cellulitis of right lower limb; I12.0 Hypertensive chronic kidney disease with stage 5 chronic kidney disease or end stage renal disease; Z68.41 Body mass index [BMI] 40.0-44.9, adult; L97.419 Non-pressure chronic ulcer of right heel and midfoot with unspecified severity; E11.621 Type 2 diabetes mellitus with foot ulcer; E11.22 Type 2 diabetes mellitus with diabetic chronic kidney disease; Z99.2 Dependence on renal dialysis; Z87.891 Personal history of nicotine dependence; E66.01 Morbid (severe) obesity due to excess calories; E78.5 Hyperlipidemia, unspecified; M79.7 Fibromyalgia; G47.30 Sleep apnea, unspecified; E11.42 Type 2 diabetes mellitus with diabetic polyneuropathy; Z72.0 Tobacco use; K21.9 Gastro-esophageal reflux disease without esophagitis; G89.4 Chronic pain syndrome; R51 Headache; B95.2 Enterococcus as the cause of diseases classified elsewhere; B96.89 Other specified bacterial agents as the cause of diseases classified elsewhere; Z83.3 Family history of diabetes mellitus; Z82.49 Family history of ischemic heart disease and other diseases of the circulatory system; Z98.84 Bariatric surgery status
CPT/HCPCS: 87186; 87493; 99284; J0692; J0696; J1644; J2270; J2543; J3370; J7030; J7050

== ENCOUNTER → 2018-03-29 | Day surgery (SDC) | payer MEDICARE, OTHER ==
[~2018-03-29] MED LIST changes: +ACETAMINOP325 MG/10 PO; +ACIDOPHILUS1 EAC1 PO; +ATORVASTATIN CA20 MG PO; +BACITRACIN 50,000 UNIT VIAL ONE; +BUPIVACAINE HCL 0.5% INJ 30 ML VIAL INJ ONE; +CEFAZOLIN SOD 1 GM VIAL ONE; +CYMBALTA30 MG; +DESFLURANE 240 ML BTL INH ONE; +DILAUDID2 MG PO; +FENTANYL CITRATE/PF 100MCG/2 ML INJ ONE; +HYDRALAZIN20 MG/1 ML IV; +LIDOCAINE 1% W/EPINEPHRINE 20 ML VIAL ONE; +LIDOCAINE HCL 2% LOCAL INJ 5 ML SDV VIAL INJ ONE; +LOPERAMIDE2 MG PO; +MIDAZOLAM HCL 2 MG/2 ML VIAL ONE; +ONDANSETRON HCL INJ 2 MG/ML VIAL ONE; +PROPOFOL IV EMULSION 10 MG/ML 20 ML VIAL ONE; +SODIUM CHLORIDE 0.9% 500ML 500 ML ONE; +ZOFRAN ODT4 MG SL
--- OUTSIDE RECORDS SUMMARY | 2018-03-29 05:45 | XMS REPORT | Clinical Summary ---
Author Author [facility] Organization [facility] Address Unknown Phone Unavailable Care Team Providers Care Child Welfare Worker Name Role Phone Theodore Patten MD PCP [...] INFLUENZA VACCINE 05/25/2018 Results Not on fileafter 03/28/2017 Insurance Payer Benefit Subscriber ID Type Phone Address Plan / Group MEDICARE MEDICARE xxxxxxxxxx Medicare [facility] [place] PART A AND B AARP AARP xxxxxxxxxxx [place] [address]
--- OUTSIDE RECORDS SUMMARY | 2018-03-29 05:45 | XMS REPORT | Continuity of Care Document ---
Author Author [facility] Organization [facility] Address [address] [place] [address] Phone Unavailable Care Team Providers Care Counter Pocket Sewer Name Role Phone ANDREW JEREZ PCP Insurance Providers Guarantor Tai Grant Address [address] [place] [address] Email [email or web address] Payer [facility] Policy Number [id number] Subscriber's Name Tai Grant Relationship 18 Self / Same As Patient Group Number PLAN A Group Name UNEMPLOYED Effective Date 17 Payer Medicare A & B Policy Number [id number] Subscriber's Name Tai Grant Relationship 18 Self / Same As Patient Group Number [id number] Group Name UNEMPLOYED Effective Date 12 Advance Directives Directive Response Recorded Date/Time Does the patient have an advance directive? No 03/19/18 2:51pm If yes, is advance directive on file with [facility]? No 05/26/18 2:51pm If not on file with [facility] will patient provide a copy? No 03/19/18 2:51pm Do you have a Directive to Physician? No 03/19/18 6:36am Do you have a Medical Power of Blower Mechanic? No 03/19/18 6:36am Do you have an out of hospital Do Not Resuscitate Order? No 03/19/18 6:36am Do you have any special needs we should be aware of? No 03/19/18 6:36am Do you have a support person here with you today? Yes 03/19/18 6:36am Did patient receive Notice of Privacy Practices? Yes 03/19/18 6:36am Did patient receive patient rights and responsibilities? Yes 03/19/18 6:36am Problems Medical Problem Onset Date Status Cellulitis of right ankle Unknown Cellulitis of right foot Unknown Chest pain 04/14/2016 Acute Cramps, muscle, general Unknown Acute ESRD (end stage renal disease) 08/07/2015 Acute Intestinal cramps Unknown Acute Jejunitis 08/07/2015 Acute Open wound of right ankle Unknown Medications Current Home Medications Medication Dose Units Route Directions Days Qty Instructions Start Date Amlodipine Besylate/Benazepril (Amlodipine-Benazepril 2.5-10) 1 Each Capsule Oral Daily Calcium Acetate 667 Mg Tablet 667 Mg Oral Three Times A Day Carvedilol 3.125 Mg Tablet 3.125 Mg Oral Twice A Day 60 Tab Clopidogrel Bisulfate (Plavix) 75 Mg Tablet 75 Mg Oral Daily 30 Tab Divalproex Sodium (Depakote Er) 500 Mg [id number] 1,000 Mg Oral Twice A Day Duloxetine Hcl (Cymbalta) 30 Mg Capsule.dr 30 Mg Twice A Day 30 Cap Esomeprazole Magnesium (Nexium) 40 Mg Capsule.dr 20 Mg Oral Daily PROTONIX THERAPEUTIC SUBSTITUTE FOR NEXIUM PER [facility] Ezetimibe (Zetia) 10 Mg Tablet 10 Mg Oral Daily 30 Tab Gemfibrozil 600 Mg Tablet 300 Mg Oral Daily Insulin Aspart (Novolog) 100 Units/1 Ml Inj 26 Unit Sub-Q Before Meals And At Bedtime Insulin Detemir (Levemir) 100 Unit/1 Ml Vial 16 Unit Subcutaneously Daily Insulin Detemir (Levemir) 100 Unit/1 Ml Vial 60 Units Sub-Q Bedtime Lisinopril 10 Mg Tablet 10 Mg Oral Daily 30 Tab Midodrine Hcl 2.5 Mg Tablet 5 Mg Oral -- Nortriptyline Hcl 10 Mg Cap 20 Mg Oral Bedtime Omeprazole 40 Mg Capsule.dr 20 Mg Oral Daily Pregabalin (Lyrica) 75 Mg Cap 150 Mg Oral Three Times A Day 30 Cap Ropinirole Hcl 0.25 Mg Tablet 0.25 Mg Oral Three Times A Day 90 Tab Sevelamer Carbonate (Renvela) 0.8 Gm Powd.pack 2,400 Mg Oral Three Times A Day Simvastatin 20 Mg Tablet 10 Mg Oral Today At 9:00PM Sumatriptan Succinate 100 Mg Tablet 100 Mg Oral As Needed Past Home Medications Medication Directions Ordered Status Acetaminophen With Codeine (Tylenol With Codeine #3 Tablet) 1 Each Tablet, 300 Mg Oral Every 4 Hours as needed for Pain Discontinued Amoxicillin/Potassium Clav (Augmentin 500-125 Tablet) 1 Each Tablet, 500 Mg Oral Twice A Day Discontinued Calcium Acetate (Phoslo) 667 Mg Cap, 3 Tab Oral Daily At 1700 Discontinued Calcium Citrate (Calcitrate) 200 Mg Tablet, 2000 Mg Oral Three Times A Day Discontinued Carvedilol 3.125 Mg Tablet, 3.125 Mg Oral Twice A Day Discontinued Cholecalciferol (Vitamin D3) (Vitamin D-3) 2,000 Unit Capsule, 2000 U Oral Daily Discontinued Clopidogrel Bisulfate (Clopidogrel) 75 Mg Tablet, 75 Mg Oral Daily Discontinued Clopidogrel Bisulfate (Plavix) 75 Mg Tablet, 75 Mg Oral Daily Discontinued Cyclobenzaprine Hcl 10 Mg Tablet, 5 Mg Oral Three Times A Day Discontinued Cyclobenzaprine Hcl 10 Mg Tablet, 5 Mg Oral Every 8 Hours as needed for Muscle Spasms Discontinued Dicyclomine Hcl 10 Mg Capsule, 5 Mg Oral Every 8 Hours as needed for Abdominal Pain Discontinued Divalproex Sodium (Divalproex Sodium Er) 500 Mg Tab.er.24h, 500 Mg Oral Bedtime Discontinued Duloxetine Hcl (Cymbalta) 20 Mg Capcr, 30 Mg Oral Twice A Day Discontinued Duloxetine Hcl (Cymbalta) 20 Mg Capcr, 20 Mg Oral Bedtime Discontinued Famotidine (Pepcid) 20 Mg Tablet, 40 Mg Oral Daily Discontinued Fludrocortisone Acetate 0.1 Mg Tab, 0.05 Mg Oral Hd Discontinued Folic Acid/Cyanocob/Pyridoxine (Nephro-Melodei Tablet) 1 Ea Tab, 1 Each Oral [...] 26 UnitSubcutaneously Three Times A Day Discontinued Labetalol Hcl 100 Mg Tablet, 200 Mg Oral Twice A Day Discontinued Lidocaine (Lidoderm) 700 Mg [...] Needed as needed for Migraine Discontinued Tramadol Hcl (Ultram) 50 Mg Tablet, 50 Mg Oral Every 4 Hours as needed for Pain Discontinued Tramadol Hcl/Acetaminophen (Ultracet Tablet) 1 Each [...] Onset Date Status Hx Psychiatric Problems No 03/19/2018 2:51pm Not Applicable Not Applicable Hx Eating Disorder No 03/19/2018 2:51pm Not Applicable Not Applicable Hx Substance Use Disorder No 03/19/2018 2:51pm Not Applicable Not Applicable Hx Depression No 03/19/2018 2:51pm Not Applicable Not Applicable Hx Alcohol Use No 03/19/2018 2:51pm Not Applicable Not Applicable Hx Substance Use Treatment No 03/19/2018 2:51pm Not Applicable Not Applicable Hx Physical Abuse No 03/19/2018 2:51pm Not Applicable Not Applicable Smoking Status Start Date Stop Date Never Smoker Hospital Discharge Instructions No hospital discharge instruction information available. Plan of Care Discharge Date 03/21/18 8:35pm Disposition [facility] ([facility]) Prescriptions See Medication Section Functional Status Query Response Date Recorded FUNCTIONAL STATUS . March 21, 2018 12:18pm Ambulation Ability Minimum Assistance March 19, 2018 3:43pm Toileting Ability Minimum Assistance March 21, 2018 7:20pm Allergies, Adverse Reactions, Alerts Allergen Type Severity Reaction Status Last Updated Nifedipine Allergy Severe SWELLING Active 12/22/17 Immunizations No immunization information available. Vital Signs Acute Vital Signs Vital Response Date/Time Temperature (Fahrenheit) 98.3 degrees F (97.6 - 99.5) 03/21/2018 7:10pm Pulse Pulse Rate (adult) 92 bpm (60 - 90) 03/21/2018 7:10pm Respiratory Rate 20 bpm (12 - 24) 03/21/2018 7:10pm Blood Pressure 125/64 mm Hg 03/21/2018 7:10pm Height 4 ft 9 in 03/19/2018 5:56am Weight 192 lb 03/19/2018 5:00pm Body Mass Index 41.5 kg/m^2 03/19/2018 5:00pm Results Laboratory Results Test Name Result Units Flags Reference Collection Date/Time Result Date/ Time Comments Anisocytosis SLIGHT 12/23/2017 4:30am 12/23/2017 4:57am Phosphorus Level 3.3 MG/DL 2.3-4.7 12/23/2017 5:05am 12/23/2017 5:25am Creatine Kinase 46 IU/L 29-168 12/22/2017 12:02pm [...] Negative 12/23/2017 7:50am 12/24/2017 12:55pm Performed at: [address] [id number] Patrol Agent: Kenny Garcia MD, Phone: [phone] Hepatitis B Surface Antigen Negative Negative 12/23/2017 [...] 15 - 65 < 8.6 Performed at: - [facility] [address] [id number] Patrol Agent: Kenny Garcia MD, Phone: [phone] Performed at: - [facility] [address] [id number] Patrol Agent: Cem Nathan MD, Phone: [phone] Prothrombin Time 13.9 seconds 11.9-14.5 02/17/2018 6:17am 02/17/2018 6: 45am Prothromb Time International Ratio 1.16 02/17/2018 6:17am 2017 6:45am Oral Anticoagulant Therapy INR Values: 1. Low Intensity Therapy 1.5 - 2.0 2. Moderate Intensity Therapy 2.0 - 3.0 3. High Intensity Therapy(1) 2.5 - 3.5 4. High Intensity Therapy(2) 3.0 - 4.0 5. Panic Value INR > 5.0 Activated Partial Thromboplast Time 35.4 seconds 23.8-35.5 02/17/2018 6: 17am 02/17/2018 6:46am White Blood Count 10.42 x10e3/uL 4.8-10.8 03/19/2018 6:00am 03/19/2018 6:12am Red Blood Count 2.80 x10e6/uL L 3.6-5.1 03/19/2018 6:00am 03/19/2018 6: 12am Hemoglobin 8.9 g/dL L 12.0-16.0 03/19/2018 6:00am 03/19/2018 6:12am Hematocrit 28.4 % L 34.2-44.1 03/19/2018 6:00am 03/19/2018 6:12am Mean Corpuscular Volume 101.4 fL H 81-99 03/19/2018 6:00am 03/19/2018 6: 12am Mean Corpuscular Hemoglobin 31.8 pg 28-32 03/19/2018 6:00am 03/19/2018 6:12am Mean Corpuscular Hemoglobin Concent 31.3 g/dL 31-35 03/19/2018 6:00am 03/19/2018 6:12am Red Cell Distribution Width 14.3 % 11.7-14.4 03/19/2018 6:00am 2017 6:12am Platelet Count 183 x10e3/uL 140-360 03/19/2018 6:00am 03/19/2018 6: 12am Neutrophils (%) (Auto) 78.9 % 38.7-80.0 03/19/2018 6:00am 03/19/2018 6: 12am Lymphocytes (%) (Auto) 7.7 % L 18.0-39.1 03/19/2018 6:00am 03/19/2018 6: 12am Monocytes (%) (Auto) 9.1 % 4.4-11.3 03/19/2018 6:00am 03/19/2018 6: 12am Eosinophils (%) (Auto) 2.0 % 0.0-6.0 03/19/2018 6:00am 03/19/2018 6: 12am Basophils (%) (Auto) 0.2 % 0.0-1.0 03/19/2018 6:00am 03/19/2018 6:12am IM GRANULOCYTES % 2.1 % H 0.0-1.0 03/19/2018 6:00am 03/19/2018 6:12am Neutrophils # (Auto) 8.2 H 2.1-6.9 03/19/2018 6:00am 03/19/2018 6: 12am Lymphocytes # (Auto) 0.8 L 1.0-3.2 03/19/2018 6:00am 03/19/2018 6: 12am Monocytes # (Auto) 1.0 H 0.2-0.8 03/19/2018 6:00am 03/19/2018 6:12am Eosinophils # (Auto) 0.2 0.0-0.4 03/19/2018 6:00am 03/19/2018 6:12am Basophils # (Auto) 0.0 0.0-0.1 03/19/2018 6:00am 03/19/2018 6:12am Absolute Immature Granulocyte (auto 0.22 x10e3/uL H 0-0.1 03/19/2018 6: 00am 03/19/2018 6:12am Differential Total Cells Counted 100 03/19/2018 6:00am 03/19/2018 9 :23am Neutrophils % (Manual) 87 % H 40-74 03/19/2018 6:00am 03/19/2018 9:23am Lymphocytes % (Manual) 10 % L 19-48 03/19/2018 6:00am 03/19/2018 9:23am Monocytes % (Manual) 2 % L 3.4-9.0 03/19/2018 6:00am 03/19/2018 9:23am Eosinophils % (Manual) 1 % 0-7 03/19/2018 6:00am 03/19/2018 9:23am Platelet Estimate ADEQUATE 03/19/2018 6:00am 03/19/2018 9:23am Platelet Morphology Comment NORMAL 03/19/2018 6:00am 03/19/2018 9: 23am Red Cell Morphology Comment NORMAL 03/19/2018 6:00am 03/19/2018 9: 23am Sodium Level 136 mmol/L 136-145 03/19/2018 6:00am 03/19/2018 6:47am Potassium Level 3.7 mmol/L 3.5-5.1 03/19/2018 6:00am 03/19/2018 6:47am Chloride Level 97 mmol/L L 98-107 03/19/2018 6:00am 03/19/2018 6:47am Carbon Dioxide Level 25 mmol/L 22-29 03/19/2018 6:00am 03/19/2018 6: 47am Anion Gap 17.7 mmol/L H 8-16 03/19/2018 6:00am 03/19/2018 6:47am Blood Urea Nitrogen 27 mg/dL H 7-26 03/19/2018 6:00am 03/19/2018 6:47am Creatinine 3.54 mg/dL H 0.57-1.11 03/19/2018 6:00am 03/19/2018 6:47am BUN/Creatinine Ratio 8 6-25 03/19/2018 6:00am 03/19/2018 6:47am Estimat Glomerular Filtration Rate 13 ML/MIN L 60- 03/19/2018 6:00am 6:47am Ranges were taken from the National Kidney Disease Education Program and the National Kidney Foundation literature. Reference ranges: 60 or greater: Normal 16-59 (for 3 consecutive months): Chronic kidney disease 15 or less: Kidney failure Glucose Level 101 mg/dL 74-118 03/19/2018 6:00am 03/19/2018 6:47am Calcium Level 9.2 mg/dL 8.4-10.2 03/19/2018 6:00am 03/19/2018 6:47am Bedside Glucose 108 mg/dL 70-120 03/21/2018 7:12pm 03/21/2018 7:26pm Meter ID: [id number] Total Bilirubin 0.3 mg/dL 0.2-1.2 03/19/2018 6:00am 03/19/2018 6:47am Aspartate Amino Transf (AST/SGOT) 11 IU/L 5-34 03/19/2018 6:00am 2017 6:47am Alanine Aminotransferase (ALT/SGPT) 7 IU/L 0-55 03/19/2018 6:0003/19 6:47am Total Protein 7.2 g/dL 6.5-8.1 03/19/2018 6:00am 03/19/2018 6:47am Albumin 2.8 g/dL L 3.5-5.0 03/19/2018 6:00am 03/19/2018 6:47am Globulin 4.4 g/dL H 2.3-3.5 03/19/2018 6:00am 03/19/2018 6:47am Albumin/Globulin Ratio 0.6 L 0.8-2.0 03/19/2018 6:00am 03/19/2018 6: 47am Alkaline Phosphatase 160 IU/L H 40-150 03/19/2018 6:00am 03/19/2018 6: 47am Microbiology Results Procedure Source Organism/Result Collection Date/Time Result Date/Time Result Status Wound Culture Ankle, Right ENTEROBACTER CLOACAE 03/19/2018 7:04am 2017 10:52am Final ENTEROCOCCUS FAECALIS 03/19/2018 7:04am 03/21/2018 10:52am Final Blood Culture Blood NO GROWTH AFTER 48 HOURS 6:00am 03/21/2018 6:05am Preliminary Procedures Procedure Status Date Provider(s) Unsched dialysis ESRD pt hos Completed 06/21/17 FARAZ BUSTILLO MD TRANSFUSE NONAUT RED BLOOD CELLS IN PERIPH VEIN, PERC Completed 12/22/17 JASPER LUGO MD PERFORMANCE OF URINARY FILTRATION, <6 HRS/DAY Completed 12/22/17 STANISLAV ELIZALDE PERFORMANCE OF URINARY FILTRATION, <6 HRS/DAY Completed 12/23/17 STANISLAV ELIZALDE PERFORMANCE OF URINARY FILTRATION, <6 HRS/DAY Completed 12/24/17 STANISLAV ELIZALDE REPAIR ACHILLES TENDON Completed 02/17/18 ADRIENNE VALLES MD REPAIR RIGHT LOWER LEG TENDON, OPEN APPROACH Completed 02/17/18 ADRIENNE VALLES MD X-ray of chest, two views Active 06/21/17 FARAZ BUSTILLO MD Computed tomography of brain without radiopaque contrast Active 01/14/18 LEONIE REILLY MD Computed tomography of cervical spine without contrast Active 01/14/18 LEONIE REILLY MD MRI jnt of lwr extre w/o dye Active 02/01/18 ADRIENNE VALLES MD X-ray of chest, two views Active 02/04/18 ANDREW JEREZ Computed tomography of brain without radiopaque contrast Active 03/20/18 CIARA CARNES MD Encounters Encounter Location Arrival/Admit Date Discharge/Depart Date Attending Provider Discharged Inpatient [facility] 03/19/18 9:48am 03/21/18 8:35pm CIARA CRANES MD Registered Surgical Day Care [facility] 02/17/18 6:51am ADRIENNE VALLES MD Registered Clinic [facility] 02/04/18 12:38pm ANDREW JEREZ Registered Clinic [facility] 02/01/18 3:10pm ADRIENNE VALLES MD Departed Emergency Room [facility] 01/14/18 10:08pm 01/15 1:58am LEONIE REILLY MD Registered Clinic [facility] 12/31/17 5:00pm VICKY CABALLERO DPM Discharged Inpatient [facility] 12/22/17 5:03pm 12/24/17 8:20pm CIARA CARNES MD Registered Clinic [facility] 11/19/17 4:48pm VICKY CABALLERO DPM Registered Clinic [facility] 10/26/17 12:00pm VICKY CABALLERO DPM Registered Clinic [facility] 09/21/17 9:35am VICKY CABALLERO DPM Registered Clinic [facility] 08/27/17 11:53am VICKY CABALLERO DPVijay Departed Emergency Room [facility] 06/21/17 7:09pm 7:59am FARAZ BUSTILLO MD Registered Clinic [facility] 06/15/17 9:06am ANDREW JEREZ
--- NOTE | 2018-03-29 14:19 | Operative Report ---
DATE OF PROCEDURE: March 29, 2018 PREOPERATIVE DIAGNOSIS: Dehiscence of surgical wound, right ankle. POSTOPERATIVE DIAGNOSIS: Dehiscence of surgical wound, right ankle, devitalized tissue. PROCEDURES: Sharp excisional debridement of dehisced right ankle Achilles tendon, repair of Achilles tendon and subcutaneous tissues, and placement of allograft. ANESTHESIA: General. HISTORY: The patient is a 57-year-old female who underwent repair of a traumatic rupture of the Achilles tendon on the right heel. Postoperatively, the patient's wound has dehisced and there is devitalized and exposed Achilles tendon. Risks, benefits, and alternative treatment were discussed with the patient and they are prepared to undergo the procedure as outlined. PROCEDURE IN DETAIL: Patient was marked preoperatively in the holding area. She was then brought to the operating theater and after the induction of adequate general anesthesia, she was prepped and draped in a supine position with the leg frog-legged and a time out was performed. The procedure was begun by performing sharp excisional debridement of all of the devitalized tissues including the partial avulsion of Achilles tendon. After removing all of the devitalized tissue, the wound was pulse lavaged with an antibiotic containing solution. At this point, Integra bilaminate membrane was placed over the wound and secured using surgical clips. Adaptic was placed over the Integra and then, a sterile bulky conforming bandage was applied. The patient was placed in a posterior fiberglass splint maintaining the foot with dorsiflexion and this was held in place with an Jose wrap. The patient was then discharged to recovery room in satisfactory condition and transferred back to [place] for her further wound treatment where a VAC will be placed over the allograft. The patient tolerated the procedure well. Job#: [id number] HEBER
== END | disposition home or self-care (01) ==
LOC: OR 05:42
PROVIDERS: ATTEND Plastic Surgery
DX: T81.32XA Disruption of internal operation (surgical) wound, not elsewhere classified, initial encounter (principal); E11.22 Type 2 diabetes mellitus with diabetic chronic kidney disease; I12.0 Hypertensive chronic kidney disease with stage 5 chronic kidney disease or end stage renal disease; N18.6 End stage renal disease; M79.7 Fibromyalgia; K29.70 Gastritis, unspecified, without bleeding; Z88.8 Allergy status to other drugs, medicaments and biological substances; F17.200 Nicotine dependence, unspecified, uncomplicated; Y83.8 Other surgical procedures as the cause of abnormal reaction of the patient, or of later complication, without mention of misadventure at the time of the procedure; Z99.2 Dependence on renal dialysis; Z79.4 Long term (current) use of insulin; Z79.02 Long term (current) use of antithrombotics/antiplatelets; Z68.41 Body mass index [BMI] 40.0-44.9, adult
CPT/HCPCS: 11043; 15271; C9363; 36415; 82948; 84132; J0690; J2001; J2250; J2405; J7040

== ENCOUNTER → 2018-06-23 | Outpatient (CLI) | payer MEDICARE ==
[~2018-06-23] MED LIST changes: -BACITRACIN 50,000 UNIT VIAL ONE; -BUPIVACAINE HCL 0.5% INJ 30 ML VIAL INJ ONE; -CEFAZOLIN SOD 1 GM VIAL ONE; -DESFLURANE 240 ML BTL INH ONE; -FENTANYL CITRATE/PF 100MCG/2 ML INJ ONE; -LIDOCAINE 1% W/EPINEPHRINE 20 ML VIAL ONE; -LIDOCAINE HCL 2% LOCAL INJ 5 ML SDV VIAL INJ ONE; -MIDAZOLAM HCL 2 MG/2 ML VIAL ONE; -ONDANSETRON HCL INJ 2 MG/ML VIAL ONE; -PROPOFOL IV EMULSION 10 MG/ML 20 ML VIAL ONE; -SODIUM CHLORIDE 0.9% 500ML 500 ML ONE
--- NOTE | 2018-06-23 16:21 | Diagnostic Imaging Report ---
EXAMINATION: MRI of the cervical spine without contrast HISTORY: Arm numbness, migraine headaches COMPARISON: None available TECHNIQUE: Sagittal T1, T2, STIR; axial T2, gradient echo. Image quality: Motion artifact limits evaluation of most of the sequences. FINDINGS: Curvature: Normal lordosis. Vertebrae: No evidence of neoplasm, infection, or fracture. Foramen magnum: No mass, Chiari malformation, or basilar invagination. Spinal Cord: Normal size and signal intensity. Soft Tissues: Unremarkable. Degenerative changes: Mild disc poles from uncovertebral and facet arthrosis at C5-C6 and C6-C7 without significant canal or foraminal stenosis, otherwise no significant degenerative changes and no evidence of nerve root compression. IMPRESSION: Suboptimal study due to motion. Grossly no abnormalities of the cervical spinal cord. Mild degenerative changes at C5-C6 and C6-C7 without significant stenosis. Signed by: Dr. Candi Alcantar M.D. on 06/23/2018 4:17 PM
== END ==
LOC: MRI 13:25
PROVIDERS: ATTEND Physical Medicine & Rehabilitation Pain Medicine
DX: M47.22 Other spondylosis with radiculopathy, cervical region (principal)
CPT/HCPCS: 72141; 77067

== ENCOUNTER → 2018-11-15 | Outpatient (CLI) | payer MEDICARE ==
--- NOTE | 2018-11-15 10:34 | Diagnostic Imaging Report ---
EXAMINATION: MRI of the lumbar spine without contrast HISTORY: Chronic low back pain radiating into the bilateral lower extremities COMPARISON: None. TECHNIQUE: Sagittal T1, T2, STIR; axial T2 and proton density. FINDINGS: It is assumed that there are 5 lumbar vertebrae. Curvature/Alignment: Straightening of the lumbar lordosis. Subtle left-sided curvature. Vertebrae: No evidence of recent fracture, infection, or neoplasm. Conus: Normal, terminating at L1 Cauda equina: Unremarkable. Lower thoracic: Unremarkable. Paraspinal soft tissues: Atrophic kidneys with scatter T2 hyperintense foci, probable cyst, a renal ultrasound is recommended if not previously evaluated. Degenerative changes: L1-L2: Decreased disc height and T2 signal intensity, minimal symmetric disc bulge, no canal or foraminal stenosis. L2-L3: Decreased disc height and T2 signal intensity, mild facet arthrosis. Minimal canal and foraminal narrowing. No nerve root compression. L3-L4: Mild symmetric disc bulge. No canal or foraminal stenosis. L4-L5: Minimal asymmetric to the left disc portion facet arthrosis. No canal or foraminal stenosis. L5-S1: Mild facet arthrosis without stenoses. IMPRESSION: Mild degenerative changes of the disc and facet joints from L1-L2 to L5-S1 without significant spinal canal or foraminal stenosis. No evidence of nerve root compression. Signed by: Dr. Candi Alcantar M.D. on 11/15/2018 10:31 AM
== END ==
LOC: MRI 07:01
PROVIDERS: ATTEND Physical Medicine & Rehabilitation Pain Medicine
DX: M47.27 Other spondylosis with radiculopathy, lumbosacral region (principal)
CPT/HCPCS: 72148

== ENCOUNTER → 2019-09-12 | Outpatient (CLI) | payer MEDICARE ==
--- NOTE | 2019-09-12 14:30 | Diagnostic Imaging Report ---
EXAMINATION: Head CT HISTORY: Head and facial trauma, pain COMPARISON: Head CT 03/13/2017 TECHNIQUE: Multidetector axial images were obtained without contrast from the foramen magnum to the vertex . The images were reconstructed using brain and bone algorithms. Thin section brain images were reformatted into coronal and sagittal planes. Image quality: Motion/streaking artifact limits the evaluation of the skull base and posterior cranial fossa. Dose modulation, iterative reconstruction, and/or weight based adjustment of the mA/kV was utilized to reduce the radiation dose to as low as reasonably achievable. FINDINGS: Parenchyma: 1. No abnormal densities. 2. No mass or hemorrhage. No CT evidence of acute territorial vascular insult. Extra-axial spaces:No abnormal density. No extra-axial fluid collections Brain volume: Normal for age. Ventricles: No hydrocephalus or displacement. Arteries: No density suggestive of thrombus. Dural sinuses: No abnormal density. Extra-axial spaces: No abnormal density. Foramen magnum: No mass, Chiari malformation, or basilar invagination. Sella: No obvious mass. Paranasal/mastoid sinuses: Imaged portions unremarkable. Skull/Scalp: No lytic or blastic lesions. No fractures. IMPRESSION: No intracranial abnormalities, unchanged compared to head CT of 03/13/2017. Signed by: Dr. Candi Alcantar M.D. on 09/12/2019 2:27 PM
--- NOTE | 2019-09-12 14:40 | Diagnostic Imaging Report ---
EXAMINATION: CT of the face HISTORY: Status post fall, trauma, pain COMPARISON: None available TECHNIQUE: Multidetector helical axial images were acquired through the face without contrast and were reconstructed in bone and soft tissue algorithms. Images were viewed in multiplanar format. Dose modulation, iterative reconstruction, and/or weight based adjustment of the mA/kV was utilized to reduce the radiation dose to as low as reasonably achievable. FINDINGS: Bones: No acute facial fractures. Atrophy of the mandible and the maxilla in an edentulous patient. Facial soft tissues: Unremarkable. Paranasal sinuses and drainage pathways: The frontal, ethmoidal, sphenoid and maxillary sinuses are clear. The ostiomeatal units, fronto-nasal and spheno-ethmoidal recesses are clear. Orbits contents: Unremarkable. Probably prior lens in the left globe. Nasal septum: Deviated to the left. 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 Anatomic variations: No significant anatomic variations. Dentition: No acute abnormality of the visualized teeth. IMPRESSION: No acute facial fractures. Signed by: Dr. Candi Alcantar M.D. on 09/12/2019 2:37 PM
== END ==
LOC: CT 12:48
PROVIDERS: ATTEND Family Medicine
DX: S00.83XA Contusion of other part of head, initial encounter (principal); S00.33XA Contusion of nose, initial encounter; W19.XXXA Unspecified fall, initial encounter
CPT/HCPCS: 70450; 70486

== ENCOUNTER → 2020-03-21 | Day surgery (SDC) | payer MEDICARE, OTHER ==
[~2020-03-21] MED LIST changes: +ACETAMINOPHEN 1000 MG/100 ML 100 ML IV ONE; +ALEVE220 M1 PEG; +BUPIVACAINE HCL 0.5% INJ 30 ML VIAL INJ ONE; +CEFAZOLIN SOD 1 GM/NS 50ML 100 ML IV ONE; +CRESTOR10 MG PO; +DEXAMETHASONE SOD PHOS INJ 4 MG/ML VIAL ONE; +EPHEDRINE SULFATE INJ 50 MG/ML VIAL ONE; +HYDROMORPHONE 1MG/1ML INJ ONE; +LEVEMIR FL100 UNIT/1 SC; +LIDOCAINE HCL 2% LOCAL INJ 5 ML SDV VIAL INJ ONE; +MIDODRINE HCL5 MG PO; +NEXIUM20 MG PO; +NORCO 10-325 T1 EACH PO; +ONDANSETRON HCL INJ 2MG/ML 2ML 2 MG/ML VIAL ONE; +PHENYLEPHRINE HCL 1% 10 MG/ML VIAL ONE; +PROPOFOL IV EMULSION 10 MG/ML 20 ML VIAL ONE; +SEVOFLURANE INHAL SOLN 250 ML PEN BTL ONE; +SODIUM CHLORIDE 0.9% 500ML 500 ML ONE
[2020-03-21 08:12] LABS: BASOPHILS % 0.3 % (0.0-1.0); EOSINOPHILS # (AUTO) 0.3 (0.0-0.4); EOSINOPHILS % 8.3 % (0.0-6.0); HEMATOCRIT 26.9 % (34.2-44.1); HEMOGLOBIN 8.2 g/dL (12.0-16.0); LYMPHOCYTES # (AUTO) 0.8 (1.0-3.2); LYMPHOCYTES % 22.6 % (18.0-39.1); MEAN CORPUSCULAR HEMOGLOBIN 33.1 pg (28-32); MEAN CORPUSCULAR HGB CONC 30.5 g/dL (31-35); MEAN CORPUSCULAR VOLUME 108.5 fL (81-99); MONOCYTES # (AUTO) 0.8 (0.2-0.8); MONOCYTES % 22.6 % (4.4-11.3); NEUTROPHILS # (AUTO) 1.5 (2.1-6.9); NEUTROPHILS % 43.3 % (38.7-80.0); PLATELET COUNT 178 x10e3/uL (140-360); RED BLOOD COUNT 2.48 x10e6/uL (3.6-5.1); RED CELL DISTRIBUTION WIDTH 18.1 % (11.7-14.4)
[2020-03-21 08:26] LABS: ANION GAP 16.2 mmol/L (8-16); CALCIUM 8.9 mg/dL (8.4-10.2); CREATININE, SERUM 3.99 mg/dL (0.57-1.11); INR 0.96; POTASSIUM 4.2 mmol/L (3.5-5.1); PROTHROMBIN TIME 13.4 seconds (11.9-14.5)
[2020-03-21 09:52] LABS: ANISOCYTOSIS MODERATE; BAND NEUTROPHILS % (MANUAL) 1 %; EOSINOPHILS % (MANUAL) 15 % (0-7); LYMPHOCYTES % (MANUAL) 21 % (19-48); MONOCYTES % (MANUAL) 10 % (3.4-9.0); MYELOCYTES % (MANUAL) 1 % (0-0); NEUTROPHILS % (MANUAL) 52 % (40-74); NUCLEATED RED BLOOD CELLS 3; POLYCHROMASIA FEW
[2020-03-21 09:54] LABS: PLATELET ESTIMATE ADEQUATE; PLATELET MORPHOLOGY COMMENT NORMAL; RBC MORPHOLOGY COMMENT ABNORMAL
[2020-03-21 12:15] VITALS: BP 101/55
--- NOTE | 2020-03-29 22:25 | Operative Report ---
DATE OF PROCEDURE: 03/21/2020 SURGEON: Basil Connolly MD PREOPERATIVE DIAGNOSES: 1. Left carpal tunnel syndrome. 2. Trigger finger, left thumb. 3. Trigger finger, left index finger. 4. Trigger finger, left long finger. POSTOPERATIVE DIAGNOSES: 1. Left carpal tunnel syndrome. 2. Trigger finger, left thumb. 3. Trigger finger, left index finger. 4. Trigger finger, left long finger. OPERATIONS AND PROCEDURES PERFORMED: The patient underwent left carpal tunnel release, a left index finger trigger release, a left thumb trigger release, and a left long finger trigger release. PIER WORKER: There was no assistant director of plant operations. ANESTHESIA: General endotracheal intubation anesthesia. IV FLUIDS: Per the Anesthesia record. BRIEF DESCRIPTION OF THE PATIENT'S OPERATIVE PROCEDURE: Ms. Avila was taken to the operating room and placed in supine position on the operating table. Following induction of general anesthesia as well as endotracheal intubation, the patient's left upper extremity was examined under anesthesia. She was found to have a dialysis catheter in the upper arm proximal to the elbow. The remainder of upper extremities are normal without gross pathology. The patient's upper extremity was prepped and draped in standard surgical fashion. The case was begun by providing a local Esmarch tourniquet from the hand to just proximal to the wrist. The incision was then created in the palm of the hand along the thenar palmar crease. This incision was carried through skin only. Blunt dissection was used to deepen the incision to the level of transverse carpal ligament. The distal edge of the transverse carpal ligament was identified and the transverse carpal ligament was then divided in line with the skin incision. The underlying median nerve was evaluated and found to have no pathology. The carpal canal was then evaluated and there was no gross pathology. Attention was then turned to the patient's trigger fingers. An incision was created over the A1 ivy for the thumb. This incision was carried through the skin only. Blunt dissection was used to deepen the incision to the level of the A1 ivy. Care was taken to retract the soft tissues with during this procedure to protect the digital nerves. The A1 ivy was incised in line with the skin incision. The underlying flexor tendon was found to have nodular tenosynovitis, but no other pathology. The thumb was placed through range of motion and found to have no further catching or locking. This wound was closed in a single-layer fashion. Attention was then turned to the index finger and incision was created over the A1 ivy for the index finger. This incision was carried through the skin only. Blunt dissection was used to deepen the incision to the level of the A1 ivy. Care was taken to place retractors in the wound to isolate the ivy and to protect vital and neurovascular structures. The ivy was then divided in line with the skin incision. The finger was placed through range of motion and found to have no further catching or locking. The wound was irrigated and closed in a single-layer fashion. Attention was then turned to the long finger. An incision was created over the A1 ivy. This incision was carried through the skin only. Blunt dissection was used to deepen the incision to isolate the A1 ivy for the long finger. Retractors were placed within the wound to protect the vital and neurovascular structures. The A1 ivy was then divided in line with the skin incision. The finger was placed through range of motion and found no longer catch or lock. The wound was closed in a single layer fashion. The Esmarch tourniquet was deflated and hemostasis was obtained for the carpal tunnel incision. This wound was then closed in a single layer fashion. Sterile dressings were applied to all incisions. The patient was then awakened and taken to the postanesthesia care in stable condition. MD TONY Aguilar/UGO /[id number]
== END | disposition home or self-care (01) ==
LOC: OR 06:49
PROVIDERS: ATTEND Specialist
DX: G56.02 Carpal tunnel syndrome, left upper limb (principal); M65.312 Trigger thumb, left thumb; M65.322 Trigger finger, left index finger; M65.332 Trigger finger, left middle finger; G89.29 Other chronic pain; G47.33 Obstructive sleep apnea (adult) (pediatric); E11.22 Type 2 diabetes mellitus with diabetic chronic kidney disease; I12.0 Hypertensive chronic kidney disease with stage 5 chronic kidney disease or end stage renal disease; N18.6 End stage renal disease; E78.5 Hyperlipidemia, unspecified; M79.7 Fibromyalgia; K29.70 Gastritis, unspecified, without bleeding; E66.01 Morbid (severe) obesity due to excess calories; F32.9 Major depressive disorder, single episode, unspecified; Z88.8 Allergy status to other drugs, medicaments and biological substances; Z01.810 Encounter for preprocedural cardiovascular examination; Z01.812 Encounter for preprocedural laboratory examination; Z01.818 Encounter for other preprocedural examination; Z11.59 Encounter for screening for other viral diseases; Z99.2 Dependence on renal dialysis; Z79.02 Long term (current) use of antithrombotics/antiplatelets; Z79.4 Long term (current) use of insulin; Z86.718 Personal history of other venous thrombosis and embolism
CPT/HCPCS: 26055 ×3; 36415; 64721; 80048; 82948; 85025; 85610; 85730; 87635; 93005; J0131; J0690; J1100; J1170; J2001; J2370; J2405; J2704; J7040

== ENCOUNTER → 2020-06-04 | Day surgery (SDC) | payer MEDICARE, OTHER ==
[~2020-06-04] MED LIST changes: -ACETAMINOPHEN 1000 MG/100 ML 100 ML IV ONE; -DEXAMETHASONE SOD PHOS INJ 4 MG/ML VIAL ONE; -EPHEDRINE SULFATE INJ 50 MG/ML VIAL ONE; -HYDROMORPHONE 1MG/1ML INJ ONE; +LIDOCAINE 2%/ EPINEPHRINE 20ML MDV ONE; +LIDOCAINE HCL 2% LOCAL 20 ML VIAL ONE; -LIDOCAINE HCL 2% LOCAL INJ 5 ML SDV VIAL INJ ONE; -ONDANSETRON HCL INJ 2MG/ML 2ML 2 MG/ML VIAL ONE; -PHENYLEPHRINE HCL 1% 10 MG/ML VIAL ONE; -PROPOFOL IV EMULSION 10 MG/ML 20 ML VIAL ONE; -SEVOFLURANE INHAL SOLN 250 ML PEN BTL ONE
[2020-06-04 10:49] LABS: BASOPHILS % 0.2 % (0.0-1.0); EOSINOPHILS # (AUTO) 0.1 (0.0-0.4); EOSINOPHILS % 1.1 % (0.0-6.0); HEMATOCRIT 32.5 % (34.2-44.1); HEMOGLOBIN 9.8 g/dL (12.0-16.0); LYMPHOCYTES # (AUTO) 0.5 (1.0-3.2); LYMPHOCYTES % 10.9 % (18.0-39.1); MEAN CORPUSCULAR HEMOGLOBIN 31.6 pg (28-32); MEAN CORPUSCULAR HGB CONC 30.2 g/dL (31-35); MEAN CORPUSCULAR VOLUME 104.8 fL (81-99); MONOCYTES # (AUTO) 0.5 (0.2-0.8); MONOCYTES % 11.5 % (4.4-11.3); NEUTROPHILS # (AUTO) 3.5 (2.1-6.9); NEUTROPHILS % 75.4 % (38.7-80.0); PLATELET COUNT 140 x10e3/uL (140-360); RED CELL DISTRIBUTION WIDTH 16.7 % (11.7-14.4)
[2020-06-04 11:01] LABS: INR 1.01; PROTHROMBIN TIME 13.8 seconds (11.9-14.5)
[2020-06-04 11:02] LABS: PARTIAL THROMBOPLASTIN TIME 37.9 seconds (23.8-35.5)
[2020-06-04 11:05] LABS: ANION GAP 19.6 mmol/L (8-16); CREATININE, SERUM 5.52 mg/dL (0.57-1.11)
[2020-06-04 11:07] LABS: POTASSIUM 5.6 mmol/L (3.5-5.1)
[2020-06-04 14:15] VITALS: BP 151/80
--- NOTE | 2020-06-05 11:28 | Operative Report ---
DATE OF PROCEDURE: 06/04/2020 SURGEON: Basil Connolly MD PREOPERATIVE DIAGNOSES: Right carpal tunnel syndrome, right long finger trigger. POSTOPERATIVE DIAGNOSES: Right carpal tunnel syndrome, right long finger trigger. OPERATIONS AND PROCEDURES PERFORMED: The patient underwent a right carpal tunnel release and a release of a right long finger trigger. GATHERING WORKER: There was no radiology assistant. ANESTHESIA: IV anesthesia and a regional block. COMPLICATIONS: None. BRIEF DESCRIPTION OF THE PATIENT'S SURGICAL PROCEDURE: Ms. Avila was taken to the operating room and place in the supine position on operating table. Following the induction of IV sedation and a regional block, the patient's right upper extremity was examined under anesthesia. She was found to have a normal-appearing hand. The patient's upper extremity was prepped and draped in standard surgical fashion. The case was begun by creating incision along the thenar palmar crease. This incision was carried through the skin only. Blunt dissection was used to deepen the incision to the level of transverse carpal ligament. The distal edge of the transverse carpal ligament was identified and a hemostat was placed beneath the ligament. The ligament was then divided in line with the skin incision. The median nerve was evaluated and found to have a normal appearance. There was no structural abnormalities of the floor of the carpal canal. Hemostasis was obtained and the wound was closed in a similar fashion. Attention was then turned to the patient's long finger trigger. An incision was made directly over the A1 ivy. This incision was carried through the skin only. Blunt dissection was used to deepen the incision and the ivy was identified. Retractors were used in the medial and lateral aspects of the flexor tendon to isolate the A1 ivy and protect the neurovascular bundles. The A1 ivy was then divided in line with the skin incision. The finger was then placed through range of motion and there was no further catching or locking. Inspection of the tendon demonstrated nodular tenosynovitis. This wound once again copiously irrigated and closed in a single layer fashion. Sterile dressings were applied. The patient was then awakened and taken to postanesthesia care unit in stable condition. Basil Connolly MD EBR/MODL /[id number]
== END | disposition home or self-care (01) ==
LOC: OR 09:53
PROVIDERS: ATTEND Specialist
DX: G56.01 Carpal tunnel syndrome, right upper limb (principal); M65.331 Trigger finger, right middle finger; G47.33 Obstructive sleep apnea (adult) (pediatric); E11.22 Type 2 diabetes mellitus with diabetic chronic kidney disease; I12.0 Hypertensive chronic kidney disease with stage 5 chronic kidney disease or end stage renal disease; N18.6 End stage renal disease; M79.7 Fibromyalgia; K29.70 Gastritis, unspecified, without bleeding; Z88.8 Allergy status to other drugs, medicaments and biological substances; Z01.812 Encounter for preprocedural laboratory examination; Z11.59 Encounter for screening for other viral diseases; Z79.02 Long term (current) use of antithrombotics/antiplatelets; Z79.4 Long term (current) use of insulin; Z99.2 Dependence on renal dialysis; Z68.42 Body mass index [BMI] 45.0-49.9, adult; Z87.891 Personal history of nicotine dependence
CPT/HCPCS: 26055; 36415; 64721; 80048; 82948; 85025; 85610; 85730; J0690; J2001; J7040; U0002

== ENCOUNTER 2020-06-20 08:33 | Inpatient (IN) | payer MEDICARE, OTHER ==
[~2020-06-20] VITALS: Ht 144.8 cm; Wt 74.8 kg
[~2020-06-20 08:33] MED LIST changes: -BUPIVACAINE HCL 0.5% INJ 30 ML VIAL INJ ONE; -CEFAZOLIN SOD 1 GM/NS 50ML 100 ML IV ONE; -LIDOCAINE 2%/ EPINEPHRINE 20ML MDV ONE; -LIDOCAINE HCL 2% LOCAL 20 ML VIAL ONE; -SODIUM CHLORIDE 0.9% 500ML 500 ML ONE
[2020-06-20] MEDS ORDERED: VANCOMYCIN 1GM/NS 250 ML 250 ML IV STA (09:19)
--- NOTE | 2020-06-20 10:02 | Diagnostic Imaging Report ---
Exam: ANKLE 3 + VIEWS RIGHT History: Ankle pain Comparison: Right ankle radiographs 03/19/2018 Findings: No acute displaced fractures. Diffuse osseous demineralization. Redemonstrated irregularity along the posterior aspect of the calcaneus, may represent sequela of prior trauma or surgery. No joint malalignment or dislocation. Ankle mortise appears symmetric. Mild degenerative changes of the subtalar and midfoot joints. Mild diffuse soft tissue swelling with focal fullness in the region of the distal Achilles tendon. Impression: 1. Mild diffuse soft tissue swelling with focal fullness in the region of the distal Achilles tendon, may represent sequela of prior trauma/surgery however cannot exclude acute Achilles tendon injury in appropriate clinical setting. 2. No acute osseous abnormality. Signed by: Jose Jean MD on 06/20/2020 9:59 AM
--- NOTE | 2020-06-20 10:06 | Emergency Department Note ---
History of Present Illnes History of Present Illness Chief Complaint: Extremity Trauma/Pain History of Present Illness This is a 60 year old female arrives to the ED with right ankle pain, and feels like there may be an infection. Historian: Patient Arrival Mode: Car Onset (how long ago): day(s) Radiation: Reports non-radiation Severity: mild Duration (how long): day(s) (we know what) Timing of current episode: constant Progression: worsening Relieving factors: none Exacerbating factors: none Past Medical/Family History Physician Review I have reviewed the patient's past medical and family history. Any updates have been documented here. Past Medical History Recent Fever: No Clinical Suspicion of Infectio: Yes New/Unexplained Change in Ment: No Past Medical History: Hypertension, Diabetes, UTI's, ESRD, Hemodyalisis, Hyperlipedemia Other Medical History: SLEEP APNEA, HYPERCHOLESTEREMIA, NEUROPATHY FIBROMYALGIA SLEEP APNEA Past Surgical History: Cholecysctectomy, Appendectomy, Bariatric Surgery Other Surgery: GASTRIC BYPASS FISTULA LUE Social History Smoking Cessation: Never Smoker Counseling Performed: No Alcohol Use: None Any Illegal Drug Use: No Physically hurt or threatened: No Other Last Tetanus: UNK Any Pre-Existing Lines (PICC,: Yes (left UE HD access) Review of Systems Review of Systems Constitutional: Reports no symptoms EENTM: Reports no symptoms Cardiovascular: Reports no symptoms Respiratory: Reports no symptoms Gastrointestinal: Reports no symptoms Genitourinary: Reports no symptoms Musculoskeletal: Reports as per HPI, Reports joint pain, Reports joint swelling Integumentary: Reports no symptoms Neurological: Reports no symptoms Psychological: Reports no symptoms Endocrine: Reports no symptoms Hematological/Lymphatic: Reports no symptoms Physical Exam Related Data Allergies: Coded Allergies: nifedipine (Verified Allergy, Severe, SWELLING, 06/20/20) vancomycin (Verified Allergy, Unknown, 06/20/20) Triage Vital Signs Vital Signs Date Time Temp Pulse Resp B/P (MAP) Pulse Ox O2 Delivery O2 Flow Rate FiO2 06/20/20 08:33 98.4 76 20 131/69 100 Room Air Vital signs reviewed: Yes Physical Exam CONSTITUTIONAL Constitutional: Present well-developed, Present well-nourished HENT HENT: Present normocephalic, Present atraumatic, Present oropharynx clear/moist, Present nose normal HENT L/R: Present left ext ear normal, Present right ext ear normal EYES Eyes: Reports PERRL, Reports conjunctivae normal NECK Neck: Present ROM normal PULMONARY Pulmonary: Present effort normal, Present breath sounds normal CARDIOVASCULAR Cardiovascular: Present regular rhythm, Present heart sounds normal, Present capillary refill normal, Present normal rate GASTROINTESTINAL Abdominal: Present soft, Present nontender, Present bowel sounds normal GENITOURINARY Genitourinary: Present exam deferred SKIN MUSCULOSKELETAL Musculoskeletal: Present tenderness, Present swelling, Present other (drainage is noted over right lower malleolus) NEUROLOGICAL Neurological: Present alert, Present oriented x 3, Present no gross motor or sensory deficits PSYCHOLOGICAL Psychological: Present mood/affect normal, Present judgement normal Results Laboratory Lab results reviewed: Yes Laboratory comments Laboratory Tests Test 06/20/20 12:59 06/20/20 09:35 White Blood Count 4.30 x10e3/uL (4.8-10.8) Red Blood Count 3.15 x10e6/uL (3.6-5.1) Hemoglobin 9.9 g/dL (12.0-16.0) Hematocrit 32.4 % (34.2-44.1) Mean Corpuscular Volume 102.9 fL (81-99) Mean Corpuscular Hemoglobin 31.4 pg (28-32) Mean Corpuscular Hemoglobin Concent 30.6 g/dL (31-35) Red Cell Distribution Width 16.5 % (11.7-14.4) Platelet Count 171 x10e3/uL (140-360) Neutrophils (%) (Auto) 66.9 % (38.7-80.0) Lymphocytes (%) (Auto) 15.6 % (18.0-39.1) Monocytes (%) (Auto) 12.3 % (4.4-11.3) Eosinophils (%) (Auto) 1.2 % (0.0-6.0) Basophils (%) (Auto) 0.5 % (0.0-1.0) Neutrophils # (Auto) 2.9 (2.1-6.9) Lymphocytes # (Auto) 0.7 (1.0-3.2) Monocytes # (Auto) 0.5 (0.2-0.8) Eosinophils # (Auto) 0.1 (0.0-0.4) Basophils # (Auto) 0.0 (0.0-0.1) Absolute Immature Granulocyte (auto 0.15 x10e3/uL (0-0.1) Sodium Level 142 mmol/L (136-145) Potassium Level 4.0 mmol/L (3.5-5.1) Chloride Level 98 mmol/L (98-107) Carbon Dioxide Level 28 mmol/L (22-29) Anion Gap 20.0 mmol/L (8-16) Blood Urea Nitrogen 21 mg/dL (7-26) Creatinine 4.54 mg/dL (0.57-1.11) Estimat Glomerular Filtration Rate 10 ML/MIN (60-) BUN/Creatinine Ratio 5 (6-25) Glucose Level 82 mg/dL (74-118) Lactic Acid Level 1.9 mmol/L (0.5-2.0) Calcium Level 8.4 mg/dL (8.4-10.2) Total Bilirubin 0.3 mg/dL (0.2-1.2) Aspartate Amino Transf (AST/SGOT) 25 IU/L (5-34) Alanine Aminotransferase (ALT/SGPT) 21 IU/L (0-55) Alkaline Phosphatase 133 IU/L (40-150) Total Protein 7.1 g/dL (6.5-8.1) Albumin 3.0 g/dL (3.5-5.0) Globulin 4.1 g/dL (2.3-3.5) Albumin/Globulin Ratio 0.7 (0.8-2.0) Imaging Imaging results reviewed: Yes Assessment & Plan Medical Decision Making MDM 60-year-old female arrived to the ED with concerns of ankle cellulitis/abscess. X-ray findings also she'll possible Achilles tendon rupture. I believe patient superimposed skin findings are secondary to a diabetic foot ulcer and less likely due to the Achilles tendon rupture. Primary care team was notified about the Achilles tendon rupture and to follow with orthopedist at their discretion. Patient is covered broad-spectrum antibiotics. Given patient's significant risk factors and a diabetic foot ulcer concerns of impending sepsis. Blood cultures, lactic acid drawn and broad-spectrum antibiotics given. Patient admitted for further workup and management, further consultation to be done by primary medicine team. Assessment & Plan Final Impression: (1) Sepsis (2) Cellulitis of right ankle Depart Disposition: ADMITTED Last Vital Signs Date Time Temp Pulse Resp B/P (MAP) Pulse Ox O2 Delivery O2 Flow Rate FiO2 06/20/20 08:33 98.4 76 20 131/69 100 Room Air Home Meds Reported Medications Esomeprazole Magnesium (NEXIUM) 20 Mg Capsule.dr, 20 MG PO DAILY, CAP PROTONIX THERAPEUTIC INTERCHANGE PER [facility] 06/20/20 Rosuvastatin Calcium (CRESTOR) 40 Mg Tablet, 40 MG PO HS 06/20/20 Pregabalin (LYRICA) 150 Mg Capsule, 150 MG PO TID, CAP 06/20/20 Insulin Detemir (LEVEMIR) 100 Unit/1 Ml Vial, 60 UNITS SQ HS 03/19/20 Insulin Detemir (Levemir Flextouch) 100 Unit/1 Ml Insuln.pen, 16 UNITS SC DAILY, UNIT 03/19/20 Midodrine Hcl (MIDODRINE HCL) 5 Mg Tablet, 10 MG PO M,W,F, TAB 03/19/20 Midodrine Hcl (MIDODRINE HCL) 5 Mg Tablet, 5 MG PO T,TH,SAt, TAB 03/19/20 Clopidogrel Bisulfate (CLOPIDOGREL) 75 Mg Tablet, 75 MG PO DAILY, #30 TAB 03/19/20 Dicyclomine Hcl (DICYCLOMINE HCL) 10 Mg Capsule, 10 MG PO PRN 03/19/20 Promethazine Hcl (PROMETHAZINE HCL) 25 Mg Tablet, 25 MG PO PRN, TAB 03/19/20 Hydrocodone Bit/Acetaminophen (NORCO 10-325 TABLET) 1 Each Tablet, 1 TAB PO PRN, TAB 03/19/20 Insuln Asp Prt/Insulin Aspart (NOVOLOG MIX 70-30 FLEXPEN SYRN) 100 Unit/1 Ml Insuln.pen, 26 UNIT SC ACHS, SYR 03/19/20 Nortriptyline Hcl (NORTRIPTYLINE HCL) 10 Mg Cap, 20 MG PO HS 02/15/18 Calcium Acetate (CALCIUM ACETATE) 667 Mg Tablet, 667 MG PO TID, CAP 02/15/18 Ropinirole Hcl (ROPINIROLE HCL) 0.25 Mg Tablet, 0.25 MG PO TID, #90 TAB 06/21/17 Divalproex Sodium (DEPAKOTE ER) 500 Mg Exczxpw24q, 1000 MG PO HS 06/21/17 Sevelamer Carbonate (RENVELA) 0.8 Gm Powd.pack, 2400 MG PO TID 06/21/17 Carvedilol (CARVEDILOL) 3.125 Mg Tablet, 3.125 MG PO BID, #60 TAB 06/21/17 Medications in the ED Cefepime HCl 50 ml @ 100 mls/hr Q24H IV ; Start 06/20/20 at 09:30; Stop 06/27/20 at 09:29 Vancomycin HCl 250 ml @ 166.667 mls/hr NOW STAT IV ; Start 06/20/20 at 09:19; Stop 06/20/20 at 10:48 Sodium Chloride 1,000 ml @ 100 mls/hr Q10H IV ; Start 06/20/20 at 09:30; Stop 07/20/20 at 09:29 KENDALL RUSSO DO Jun 20, 2020 10:06
[2020-06-20] MEDS ORDERED: ONDANSETRON HCL INJ 2MG/ML 2ML 2 MG/ML VIAL IV STA (10:09)
[2020-06-20] MEDS: CEFEPIME 1GM/NS 0.9% 50 ML 50 ML IV SCH (10:09)
[2020-06-20] MEDS: SODIUM CHLORIDE 0.9% 1000ML 1,000 ML IV SCH ×2 (10:09→19:01)
[2020-06-20 10:14] LABS: BASOPHILS % 0.5 % (0.0-1.0); EOSINOPHILS # (AUTO) 0.1 (0.0-0.4); EOSINOPHILS % 1.2 % (0.0-6.0); HEMATOCRIT 32.4 % (34.2-44.1); HEMOGLOBIN 9.9 g/dL (12.0-16.0); LYMPHOCYTES # (AUTO) 0.7 (1.0-3.2); LYMPHOCYTES % 15.6 % (18.0-39.1); MEAN CORPUSCULAR HEMOGLOBIN 31.4 pg (28-32); MEAN CORPUSCULAR HGB CONC 30.6 g/dL (31-35); MEAN CORPUSCULAR VOLUME 102.9 fL (81-99); MONOCYTES # (AUTO) 0.5 (0.2-0.8); MONOCYTES % 12.3 % (4.4-11.3); NEUTROPHILS # (AUTO) 2.9 (2.1-6.9); NEUTROPHILS % 66.9 % (38.7-80.0); PLATELET COUNT 171 x10e3/uL (140-360); RED BLOOD COUNT 3.15 x10e6/uL (3.6-5.1); RED CELL DISTRIBUTION WIDTH 16.5 % (11.7-14.4)
[2020-06-20] MEDS ORDERED: MORPHINE SULFATE INJ 4 MG/ML INJ 1ML IV STA (10:15)
[2020-06-20 10:32] LABS: ALBUMIN/GLOBULIN RATIO 0.7 (0.8-2.0); CALCIUM 8.4 mg/dL (8.4-10.2); CREATININE, SERUM 4.54 mg/dL (0.57-1.11)
--- OUTSIDE RECORDS SUMMARY | 2020-06-20 10:46 | XMS REPORT | Clinical Summary ---
Author Author [facility] Organization [facility] Address Unknown Phone Unavailable Care Team Providers Care Principal Accounts Clerk Name Role Phone Jaspreet Patten MD PCP Allergies Comments Active Allergy Reactions Severity Noted Date Seizure-like activity per Dr Hector Fishermorphorobbie Other (See 01/11/2019 Comments) Seizure activity Morphine Other (See 01/11/2019 Comments) Nifedipine Anaphylaxis High 12/14/2016 Medications End Date Status Medication Sig Dispensed Refills Start Date Active divalproex (DEPAKOTE) 500 Take 1,000 mg 0 / 8/201 MG 24 hr tablet by mouth 7 nightly. Active clonIDINE (CATAPRES) 0.1 Take 0.1 mg 0 MG tablet by mouth every 4 (four) hours as needed for high blood pressure (SBP > 170 or DBP > 110). Active dicyclomine (BENTYL) 10 Take 10 mg by 0 MG capsule mouth daily as needed (abdominal cramps). Active LYRICA 150 mg capsule Take 150 mg 0 02/22/20 1 by mouth 3 8 (three) times a day. Active sevelamer (RENVELA) 800 Take 2,400 mg 0 mg tablet by mouth 3 (three) times a day with meals. Active SUMAtriptan (IMITREX) 100 Take 100 mg 0 / 8/201 MG tablet by mouth 8 nightly. Active insulin ASPART (NovoLOG) Inject 30 0 100 unit/mL injection Units under the skin 3 (three) times a day before meals. Active insulin detemir U-100 Inject 16 0 (LEVEMIR) 100 unit/mL Units under injection the skin every morning. Active insulin detemir U-100 Inject 26 0 (LEVEMIR) 100 unit/mL Units under injection the skin nightly. Active carvedilol (COREG) 3.125 Take 3.125 mg 0 MG tablet by mouth 2 (two) times a day with meals. Active promethazine (PHENERGAN) Take 12.5 mg 0 12.5 MG tablet by mouth every 6 (six) hours as needed for nausea or vomiting. Active midodrine (PROAMATINE) 5 Take 5 mg by 0 MG tablet mouth 4 (four) times a week. Pt takes 5 mg on non dialysis days , , Sat, and Sun Active midodrine (PROAMATINE) 5 Take 10 mg by 0 MG tablet mouth 3 (three) times a week. Take on Wednesday, Wednesday and Wednesday for Low BP during dialysis Active DULoxetine (CYMBALTA) 30 Take 30 mg by 0 10/19 /201 MG capsule mouth 2 (two) 8 times a day. Active esomeprazole (NexIUM) 20 Take 20 mg by 0 11/23 /201 MG capsule mouth every 9 morning. Active ezetimibe (ZETIA) 10 mg Take 10 mg by 0 11/14/ 201 tablet mouth every 9 morning. Active nortriptyline (PAMELOR) Take 20 mg by 0 10/25/ 201 10 MG capsule mouth 9 nightly. Active rosuvastatin (CRESTOR) 40 Take 1 tablet 0 03/0 5/201 MG tablet by mouth 9 daily. Active Problems Problem Noted Date Delirium 01/11/2019 Chest pain 12/12/2018 Hyperkalemia 10/12/2018 Generalized weakness 08/01/2018 Pneumonia due to infectious organism 05/13/2018 Hypotension 12/21/2016 Immunizations Name Administration Dates Next Due FLUCELVAX QUAD PF 12/16/2018 Family History Medical History Relation Name Comments Diabetes Brother Heart attack Father Aneurysm Mother Cataracts Mother Heart attack Mother Diabetes Sister Heart attack Sister Relation Name Status Comments Brother Father Mother Sister Social History Date Tobacco Use Types Packs/Day Years Used Never Smoker Smokeless Tobacco: Never Used Drinks/Week oz/Week Comments Alcohol Use No Sex Assigned at Date Recorded Not on file Industry Job Start Date Occupation Not on file Not on file Not on file Travel End Travel History Travel Start No recent travel history available. Last Filed Vital Signs Not on file Plan of Treatment Health Maintenance Due Date Last Done Comments CERVICAL CANCER SCREENING 1983 BREAST CANCER SCREENING 2012 COLONOSCOPY SCREENING 2012 SHINGLES VACCINES (#1) 2012 INFLUENZA VACCINE 07/25/2020 12/16/2018 Implants Device Identifier Shelf Expiration Date Model / Serial / L ot Implanted Type Area Manufactur er Screw Screw Ankle Results Not on fileafter 06/20/2019 Insurance Type Payer Benefit Subscriber ID Effective Phone Address Plan / Dates Group Medicare MEDICARE MEDICARE xxxxxxxxxxx 2012-P [place], PART A AND resent [place] B Commercial AARP AARP xxxxxxxxxxx [id number] SUPPLE[place] [phone] Advance Directives For more information, please contact: [phone] Patient Paradi Operator Explanation Type Date Recorded Advance Directives, 12/21/2016 2:37 PM Living Will and Medical Power of Shingler Date Inactivated Comments Code Status Date Activated 05/21/2018 12:55 AM Full Code 05/13/2018 5:47 PM Code Status decision reached by: Patient 12/28/2016 8:42 PM Full Code 12/22/2016 2:37 AM Code Status decision reached by: Patient
--- OUTSIDE RECORDS SUMMARY | 2020-06-20 10:51 | XMS REPORT | Continuity of Care Document ---
Author Author [employer] Organization [employer] Address Unknown Phone Unavailable Care Team Providers Care Reporting Analyst Name Role Phone [employer] Unavailable Un available Problems Problem Status Onset Date Classification Date Reported Comments Source Other symptoms and signs involving the nervous system 12/02/2017 03/05/2018 [facility] DX: R29.818=[id number] SYMPTOMS AND SIGNS INV Active 11/18/2017 [facility] CHEST PAIN/SOB Active 06/05/2016 [facility] DIVERTICULITIS, MISSED HD Acti ve 06/05/2016 [facility] GROIN PAIN Active 04/15/2015 [facility] LEG PAIN Active 04/15/2015 [facility] Discharge Diagnosis: Abdominal pain 01/11/2015 01/13/2015 [facility] ABDOMINAL PAIN Active 01/11/2015 [facility] CARDIAC CLEARANCE Active 12/03/2014 [facility] FAUSTO Active 0 11/07/2014 [facility] RENAL DO NOT USE FOR CHARGES F/C NOTES O Active 11/06/2014 [facility] SYNCOPE Active 10/05/2014 [facility] SYNCOPE, ABDOMINAL PAIN Active 10/05/2014 [facility] SEVERE DYSPESIA, SYNCOPALL EPISODE Active 10/05/2014 [facility] PRE RENAL EVAL Active 10/03/2014 [facility] WEAKNESS Active 09/19/2014 [facility] Discharge Diagnosis: Abdominal pain, acu te, bilateral lower quadrant 09/03/2014 09/06/2014 [facility] Discharge Diagnosis: Abdominal cramping 09/03/2014 09/06/2014 [facility] VOMITING Active 07/31/2014 [facility] SYNCOPE, ANEMIA Active 07/31/2014 [facility] HYPOGLYCEMIA Active 11/09/2013 [facility] BDDC/GERD Active 09/18/2013 [facility] COLITIS Active 08/05/2013 [facility] VOMITING, HYPOKALEMIA, ESRD Ac tive 07/24/2013 [facility] SHORTNESS OF BREATH Active 07/24/2013 [facility] BDDC/REFLUX, SCREENING Active 02/02/2013 [facility] SOB Active 0 01/12/2013 [facility] LEFT ARM PAIN Active 01/04/2013 [facility] HYPERKALEMIA Active 12/25/2012 [facility] ARM PAIN Active 12/23/2012 [facility] 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 [facility] VRE Active 0 07/01/2012 Problem 08/04/2013 12/05/12 VRE of the urine 2Problem added by Discern Expert. [facility] HYPERKALEMIA, WEAKNESS Active 06/30/2012 [facility] ABDOMINAL PAIN/ VAG BLEED Acti ve 01/31/2012 [facility] HEMATURIA WITH URINARY RETENTION, ABDOMINAL PAIN Active 01/31/2012 [facility] HYPERRKALEMIA, INTRACTABLE PAIN,ARF,NEUROPATHY Active 12/30/2011 [facility] Acute painful diabetic neuropathy (disorder) Active Problem 03/05/2018 [facility] Injury of back (disorder) Acti ve Problem 09/2018 [facility] Backache (finding) Active Problem 03/05/2018 [facility] Coronary arteriosclerosis (disorder) Active Problem 09/2018 [facility] Diabetes mellitus (disorder) A ctive Problem 09/2018 [facility] Diabetes mellitus type 2 (disorder) Active Problem 09/2018 [facility] End stage renal disease (disorder) Active Problem 09/2018 [facility] Fibromyositis (disorder) Resol kathy Problem 09/2018 [facility] Asthenia (finding) Active Problem 03/05/2018 [facility] Hemodialysis (procedure) Active Problem 03/05/2018 [facility] Heart disease (disorder) Active Problem 03/05/2018 [facility] Hypertensive disorder, systemic arterial (disorder) Active Problem 03/05/2018 [facility] Malignant hypertension (disorder) Active Problem 09/2018 [facility] Hyperkalemia (disorder) Active Problem 03/05/2018 [facility] Neuropathy (disorder) Active Problem 03/05/2018 [facility] 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) Active Problem 03/05/2018 [facility] Osteoarthritis (disorder) Acti ve Problem 09/2018 [facility] Obesity (disorder) Active Problem 03/05/2018 [facility] Pretransplant evaluation of kidney recip ient (procedure) Active Prob renee 03/05/2018 [facility] Kidney disease (disorder) Acti ve Problem 09/2018 [facility] Sleep apnea(Confirmed) Active Problem 03/05/2018 [facility] Sleep apnea (finding) Active Problem 03/05/2018 [facility] Urinary tract infectious disease (disorder) Active Problem 03/05/2018 [facility] Acute painful diabetic neuropathy Active Problem 08/2013 [facility] Back injury Active Problem 08/04/2013 [facility] Back pain Active Problem 08/04/2013 [facility] Cholesterol Active Problem 08/04/2013 [facility] Diabetes mellitus Active Problem 08/04/2013 [facility] ESRD - End stage renal disease Active Problem 08/2013 [facility] General weakness Active Problem 08/04/2013 [facility] HD - Hemodialysis Active Problem 08/04/2013 [facility] Heart disease Active Problem 08/04/2013 [facility] HT - Hypertension Active Problem 08/04/2013 [facility] Hyperkalemia Active Problem 08/04/2013 [facility] Neuropathy Active Problem 08/04/2013 [facility] OA - Osteoarthritis Active Problem 08/04/2013 [facility] Renal disease Active Problem 08/04/2013 [facility] Sleep apnea Active Problem 08/04/2013 [facility] UTI - Urinary tract infection Active Problem 08/2013 [facility] OA - Osteoarthritis Active Problem 02/18/2012 [facility] Kidney dialysis Active Problem 08/04/2013 [facility] Neuropathy Resolved Problem 08/04/2013 [facility] Sleep apnea Resolved Problem 12/01/2013 [facility] Back pain Resolved Problem 09/22/2013 [facility] DM (diabetes mellitus) Resolved Problem 09/22/2013 [facility] ESRD (end stage renal disease) Resolved Problem [facility] HTN Resolved Problem 09/22/2013 [facility] Hyperkalemia Resolved Problem 09/22/2013 [facility] OA (osteoarthritis) Resolved Problem 09/22/2013 [facility] UTI [Urinary tract infection] Resolved Problem [facility] Cholesterol (substance) Active Problem 06/13/2016 [facility] Renal dialysis (procedure) Act sue Problem [facility] Obesity Active Problem 08/04/2013 [facility] DM (diabetes mellitus)(Confirmed) Active Problem [facility] hemo dialysis M W FR(Confirmed) Active Problem [facility] Essential hypertension (disorder) Active Problem [facility] OA (osteoarthritis)(Confirmed) Active Problem 11/2014 [facility] Sleep apnea(Confirmed) Active Problem 04/25/2015 [facility] hemo dialysis M W FR Active Problem 12/01/2013 [facility] HYPERPOTASSEMIA Active [facility] HEMATURIA Active [facility] RETENTION OF URINE NOS Active [facility] ABDMNAL PAIN UNSPCF SITE Active [facility] MALAISE AND FATIGUE NEC Active [facility] JOINT PAIN-PELVIS Active [facility] RESPIRATORY ABNORM NEC Active [facility] HYPOPOTASSEMIA Active [facility] SCREEN MALIG NEOP-COLON Active [facility] ESOPHAGEAL REFLUX Active [facility] MORBID OBESITY Active [facility] VOMITING ALONE Active [facility] LOCALIZED ADIPOSITY Active [facility] NONINF GASTROENTERIT NEC Active [facility] HYPOGLYCEMIA NOS Active [facility] SYNCOPE AND COLLAPSE Active [facility] ROUTINE MEDICAL EXAM Active [facility] ABDMNAL PAIN OTH SPCF ST Active [facility] DIVERTICULUM OF APPENDIX Active [facility] OTHER SYMPTOMS AND SIGNS INVOLVING THE N Active [facility] Medications Medication Details Route Status Patient Instructions Ordering Provider Order Date Source Cefuroxime 250 MG Oral Tablet [Ceftin] Notes: (Do Not Crush) With food. (Same As: Ceftin) Inactive 06/10/2016 [facility] tramadol hydrochloride 50 MG Oral Tablet 50 mg = 1 tab, PO, Q6H, PRN Pain Score 4-6, # 24 tab, 0 Refill(s) No Longer Active 06/10/2016 [facility] saccharomyces boulardii lyo 250 mg oral capsule 250 mg = 1 cap, PO, BID, # 10 cap, 0 Refill(s) No Longer Active 06/10/2016 [facility] Metronidazole 500 MG Oral Tablet 500 mg = 1 tab, PO, ABXQ8H, # 42 tab, 0 Refill(s) No Longer Active 06/10/2016 [facility] Famotidine 40 MG Oral Tablet [Pepcid] 40 mg = 1 tab, PO, Daily, # 30 tab, 0 Refill(s) Active 06/10/2016 [facility] Cefuroxime 250 MG Oral Tablet [Ceftin] 250 mg = 1 tab, PO, BID, # 20 tab, 0 Refill(s) No Longer Active 06/10/2016 [facility] Flagyl Notes: (Same as: Flagyl ) Take with food/ avoid alcohol Inactive 06/10/2016 [facility] Florastor Notes: Same as Lori stor Inactive 06/10/2016 [facility] Famotidine 40 MG Oral Tablet [Pepcid] Notes: (Same as: Pepcid) No Longer Active 06/10/2016 [facility] Dilaudid 0.5 mg, 0.5 mL, Route : IVP, Drug form: INJ, Q4H, Dosing Weight 94.801, kg, PRN Pain Score 7-10, Start date: 06/09/16 11:44:00 CDT, Duration: 30 day, Stop date: 07/09/16 11:43:00 CDT No Longer Active 06/09/2016 [facility] Insulin, Aspart, Human Notes: Roll in palms of hands gently; Do not shake vigorously. (Same as: NovoLOG) "single patient use only" WASTE: F/P - Black; E - Municipal Trash Bin Stable for 28 days at room temperature. Expires in days from Date No Longer Active 06/07/2016 [facility] Dextrose 50% Syringe 25 gm, 50 mL, Route: IVP, Drug Form: INJ, Dosing Weight 94.801, kg, PRN, PRN Blood Glucose Results, Start date: 06/06/16 19:06:00 CDT, Duration: 30 day, Stop date: 07/06/16 19:05:00 CDT No Longer Active 06/07/2016 [facility] Glucagon 1 mg, Route: IM, Drug form: PDR/INJ, PRN, Dosing Weight 94.801, kg, PRN Blood Glucose Results, Start date: 06/06/16 19:06:00 CDT, Duration: 30 day, Stop date: 07/06/16 19:05:00 CDT No Longer Active 06/07/2016 [facility] pneumococcal 13-valent vaccine Notes: Lightly roll vial (DO NOT SHAKE) before administration. (Same as: Prevnar 13) Inactive 06/06/2016 [facility] Protonix Notes: Tablet should not be chewed or crushed. (Same as: Protonix) No Longer Active 06/06/2016 [facility] Dilaudid 0.5 mg, 0.5 mL, Route : IVP, Drug form: INJ, Q4H, Dosing Weight 94.801, kg, PRN Pain Score 7-10, Start date: 06/06/16 11:53:00 CDT, Duration: 30 day, Stop date: 07/06/16 11:52:00 CDT No Longer Active 06/06/2016 [facility] Sodium Bicarbonate 325 MG Oral Tablet Notes: "Dissolve tablet in a glass of water prior to oral administration. STOMACH WARNING: To avoid serious injury, do not take until tablet is completely dissolved. It is very important not to take this product when overly full from food or drink." No Longer Active 06/06/2016 [facility] ropinirole Notes: (Same as: Re quip) No Longer Active 06/06/2016 [facility] Lyrica Notes: (Same as: Lyrica) No Longer Active 06/06/2016 [facility] Nephro-Melodie Notes: (Same as: N ephro-Melodie Rx and Diatx) Give with food. No Longer Active 06/06/2016 [facility] Midodrine Notes: (Same as:Proa matine) No Longer Active 06/06/2016 [facility] Lisinopril Notes: (Same as: Pr inivil, Zestril) No Longer Active 06/06/2016 [facility] Lidocaine Hydrochloride 0.05 MG/MG Trans dermal Patch [Lidoderm] Notes: Apply only once for up to 12 hour s in a 24-hour period (12 hours on and 12 hours off). (Same as: Lidoderm) "Remove old patch before application of new patch" No Longer Active 06/06/2016 [facility] Levemir FlexPen Notes: Same as Levemir Do not hold insulin without contacting prescriber WASTE: F/P - Black; E - Municipal Trash Bin "single patient use only" No Longer Active 06/06/2016 [facility] NovoLOG 70/30 Notes: Roll in p alms of hands gently; Do not shake vigorously. (Same as: NovoLOG Mix) "single patient use only" WASTE: F/P - Black; E - Municipal Trash Bin Stable for 14 days at room temperature Expires in days from Date No Longer Active 06/06/2016 [facility] gabapentin 300 MG Oral Capsule Notes: (Same as: Neurontin) No Longer Active 06/06/2016 [facility] Nexium 40 mg, Route: PO, Drug form: ECCAP, Daily, Dosing Weight 95.455, kg, Start date: 06/06/16 9:00:00 CDT, Duration: 30 day, Stop date: 07/05/16 9:00:00 CDT No Longer Active 06/06/2016 [facility] duloxetine Notes: (Same as: Cy mbalta) (Do Not Crush) No Longer Active 06/06/2016 [facility] clopidogrel Notes: (Same As: P lavix) No Longer Active 06/06/2016 [facility] carvedilol Notes: Give with fo od. (Same As: Coreg) No Longer Active 06/06/2016 [facility] Renvela Notes: Same as: Renvela No Longer Active 06/06/2016 [facility] Simvastatin Notes: (Same as: Z ocor) No Longer Active 06/06/2016 [facility] insulin detemir Notes: Same as Levemir Do not hold insulin without contacting prescriber WASTE: F/P - Black; E - Municipal Trash Bin "single patient use only" No Longer Active 06/06/2016 [facility] 24 HR Divalproex Sodium 500 MG Extended Release Tablet [Depakote] Notes: (Same as: Depakote ER) (Do Not Cr ush) "Do Not Crush" No Longer Active 06/06/2016 [facility] sevelamer 1,600 mg, Route: PO, Drug form: TAB, PRN, Dosing Weight 95.455, kg, PRN Dialysis, Start date: 06/05/16 20:05:00 CDT, Duration: 30 day, Stop date: 07/05/16 20:04:00 CDT Inactive 06/06/2016 [facility] Sumatriptan Notes: (Same As: I mitrex) No Longer Active 06/06/2016 [facility] tramadol hydrochloride 50 MG Oral Tablet Notes: Not to exceed 400mg/day. (Same As: Ultram) No Longer Active 06/06/2016 [facility] sevelamer 1,600 mg, Route: PO, Drug form: TAB, PRN, Dosing Weight 95.455, kg, PRN Dialysis, Start date: 06/05/16 19:03:00 CDT, Duration: 30 day, Stop date: 07/05/16 19:02:00 CDT Inactive 06/06/2016 [facility] Promethazine Notes: (Same as: Phenergan) No Longer Active 06/06/2016 [facility] cyclobenzaprine Notes: (Same A s: Flexeril) No Longer Active 06/06/2016 [facility] Rocephin Notes: (Same As: Roce phin). Use with 100 mL NS and infuse over 30 min MEDICATION WASTE Product Size: 1000 mg Product Wasted: ___ mg No Longer Active 06/05/2016 [facility] Esomeprazole 40 MG Enteric Coated Capsule [Nexium] 40 mg = 1 cap, PO, Daily, # 30 cap, 0 Refill(s) Active 06/05/2016 [facility] Promethazine 0.5, PO, PRN, 0 R efill(s) Active 06/05/2016 [facility] Sodium Bicarbonate 325 MG Oral Tablet PO, TID, 0 Refill(s) Active 06/05/2016 [facility] gabapentin 300 MG Oral Capsule 300 mg = 1 cap, PO, BID, # 90 cap, 1 Refill(s) Active 06/05/2016 [facility] lisinopril 10 mg oral tablet 1 0 mg = 1 tab, PO, Daily, # 30 tab, 0 Refill(s) Active 06/05/2016 [facility] cyclobenzaprine 5 mg, PO, TID, PRN Muscle spasm, # 30 tab, 0 Refill(s) Active 06/05/2016 [facility] Acetaminophen 325 MG / Hydrocodone Abram trate 5 MG Oral Tablet [[place] 5/325] Notes: (Same as: [place] 325/5) Do not ex ceed 4gm/day of acetaminophen. No Longer Activ e 06/05/2016 [facility] Streptococcus pneumoniae serotype 1 caps ular antigen diphtheria [id number] protein conjugate vaccine / Streptococcus pneumoniae serotype 14 capsular antigen diphtheria [id number] protein conjugate vaccine / Streptococcus pneumoniae serotype 18C capsular antigen d Notes: Lightly roll vial (DO NOT SHAKE) before administration. (Same as: Prevnar 13) Inactive 06/05/2016 [facility] Ondansetron Notes: (Same as: [address]) MEDICATION WASTE Product Size: 4 mg Product Wasted: ___ mg No Longer Active 06/05/2016 [facility] Acetaminophen Notes: Do not ex ceed 4 gm/day. (Same as: Tylenol) No Longer Active 06/05/2016 [facility] Flagyl Notes: (Same as: Flagyl ) Avoid alcohol. No Longer Active 06/05/2016 [facility] Cipro Notes: Do not refrigerate Inactive 06/05/2016 [facility] Zofran 4 mg, Route: IVP, Drug form: INJ, ONCE, Dosing Weight 95.455, kg, Priority: STAT, Start date: 06/05/16 11:22:00 CDT, Stop date: 06/05/16 11:22:00 CDT Inactive 06/05/2016 [facility] Dilaudid 0.5 mg, Route: IVP, O NCE, Dosing Weight 95.455, kg, Priority: STAT, Start date: 06/05/16 6:44:00 CDT, Stop date: 06/05/16 6:44:00 CDT Inactive 06/05/2016 [facility] Ondansetron 4 mg, Route: IVP, ONCE, Dosing Weight 95.455, kg, Priority: STAT, Start date: 06/05/16 6:44:00 CDT, Stop date: 06/05/16 6:44:00 CDT Inactive 06/05/2016 [facility] Saline Flush 0.9% Notes: (Same as: BD Posiflush) Inactive 06/05/2016 [facility] duloxetine Notes: (Same as: Cy mbalta) (Do Not Crush) No Longer Active 04/19/2015 [facility] Simvastatin Notes: (Same as: Z ocor) No Longer Active 04/17/2015 [facility] insulin detemir Notes: Same as Levemir Do not hold insulin without contacting prescriber "single patient use only" No Longer Active 04/17/2015 [facility] 24 HR Divalproex Sodium 500 MG Extended Release Tablet [Depakote] Notes: (Same as: Depakote ER) Once clara y dosing; indicated for migraines. Divalproex sodium extended-release tab. Do not chew or crush. "Do Not Crush" No Longer Active 04/17/2015 [facility] Ativan Notes: (Same as: Ativan) Inactive 04/16/2015 [facility] ropinirole Notes: (Same as: Re quip) No Longer Active 04/16/2015 [facility] Lyrica Notes: (Same as: Lyrica) No Longer Active 04/16/2015 [facility] Nephro-Melodie Notes: (Same as: N ephro-Melodie Rx and Diatx) Give with food. No Longer Active 04/16/2015 [facility] Midodrine Notes: (Same as:Proa matine) No Longer Active 04/16/2015 [facility] NovoLOG 70/30 Notes: Roll in p alms of hands gently; Do not shake vigorously. (Same as: NovoLOG Mix) "single patient use only" Stable for 14 days at room temperature Expires in days from Date No Longer Active 04/16/2015 [facility] Levemir FlexPen Notes: Same as Levemir Do not hold insulin without contacting prescriber "single patient use only" No Longer Active 04/16/2015 [facility] clopidogrel Notes: (Same As: P lavix) No Longer Active 04/16/2015 [facility] duloxetine Notes: (Same as: Cy mbalta) (Do Not Crush) No Longer Active 04/16/2015 [facility] carvedilol Notes: Give with fo od. (Same As: Coreg) No Longer Active 04/16/2015 [facility] Renvela Notes: Same as: Renvela No Longer Active 04/16/2015 [facility] heparin Notes: porcine heparin No Longer Active 04/16/2015 [facility] Insulin, Aspart, Human Notes: Roll in palms of hands gently; Do not shake vigorously. (Same as: NovoLOG) "single patient use only" Stable for 28 days at room temperature. Expires in days from Date No Longer Active 04/16/2015 [facility] Dextrose 50% Syringe 12.5 gm, 25 mL, Route: IVP, Drug Form: INJ, Dosing Weight 80.909, kg, PRN, PRN Blood Glucose Results, Start date: 04/16/15 7:04:00, Duration: 30 day, Stop date: 05/16/15 7:03:00 No Longer Active 04/16/2015 [facility] Glucagon 1 mg, Route: IM, Drug form: PDR/INJ, PRN, Dosing Weight 80.909, kg, PRN Blood Glucose Results, Start date: 04/16/15 7:04:00, Duration: 30 day, Stop date: 05/16/15 7:03:00 No Longer Active 04/16/2015 [facility] tramadol hydrochloride 50 MG Oral Tablet Notes: Not to exceed 400mg/day. (Same As: Ultram) No Longer Active 04/16/2015 [facility] Dilaudid 0.5 mg, 0.5 mL, Route : IV, Drug form: INJ, Q4H, Dosing Weight 80.909, kg, PRN Pain Score 7-10, Start date: 04/15/15 22:01:00, Duration: 30 day, Stop date: 05/15/15 22:00:00 No Longer Active 04/16/2015 [facility] Zofran Notes: (Same as: Zofran ) MEDICATION WASTE Product Size: 4 mg Product Wasted: ___ mg No Longer Active 04/16/2015 [facility] Morphine Notes: (Same as:MORPh ine Sulfate) Inactive 04/16/2015 [facility] Acetaminophen 325 MG / Hydrocodone Abram trate 5 MG Oral Tablet Notes: (Same as: [place] 325/5) Do not ex ceed 4gm/day of acetaminophen. No Longer Active 04/16/2015 [facility] sevelamer 800 mg oral tablet 1 ,600 mg = 2 tab, PO, PRN, PRN Other -See Comment, # 180 tab, 0 Refill(s) Active 04/16/2015 [facility] 3 ML insulin detemir 100 UNT/ML Prefille d Syringe [Levemir] 60 unit, SUB-Q, Bedtime, # 1 pen(s), 3 Refill(s) Active 04/16/2015 [facility] 3 ML insulin detemir 100 UNT/ML Prefille d Syringe [Levemir] 16 unit, SUB-Q, Daily, # 1 pen(s), 0 Refill(s) Active 04/16/2015 [facility] 24 HR Divalproex Sodium 500 MG Extended Release Tablet [Depakote] 500 mg = 1 tab, PO, Bedtime, # 60 tab, 1 Refill(s) Active 04/16/2015 [facility] Zofran 4 mg, Route: IVP, Drug form: INJ, ONCE, Dosing Weight 84.8, kg, Priority: STAT, Start date: 04/15/15 16:55:00, Stop date: 04/15/15 16:55:00 Inactive 04/15/2015 [facility] Dilaudid 0.5 mg, Route: IVP, O NCE, Dosing Weight 84.8, kg, Priority: STAT, Start date: 04/15/15 16:55:00, Stop date: 04/15/15 16:55:00 Inactive 04/15/2015 [facility] Dilaudid 0.5 mg, Route: IVP, O NCE, Dosing Weight 84.8, kg, Priority: STAT, Start date: 04/15/15 13:35:00, Stop date: 04/15/15 13:35:00 Inactive 04/15/2015 [facility] Ondansetron Notes: (Same as: [address]) MEDICATION WASTE Product Size: 4 mg Product Wasted: ___ mg Inactive 04/15/2015 [facility] Morphine Notes: (Same as:MORPh ine Sulfate) Inactive 04/15/2015 [facility] Saline Flush 0.9% Notes: (Same as: BD Posiflush) Inactive 04/15/2015 [facility] Morphine 4 mg, Route: IVP, Zach g form: INJ, ONCE, Dosing Weight 77.273, kg, Priority: STAT, Start date: 01/11/15 11:35:00, Stop date: 01/11/15 11:35:00 Inactive 01/11/2015 [facility] Morphine 4 mg, Route: IVP, Zach g form: INJ, ONCE, Dosing Weight 77.273, kg, Priority: STAT, Start date: 01/11/15 9:27:00, Stop date: 01/11/15 9:27:00 Inactive 01/11/2015 [facility] Zofran Notes: (Same as: Zofran) Inactive 01/11/2015 [facility] pregabalin 75 MG Oral Capsule [Lyrica] 75 mg = 1 cap, PO, BID, # 90 cap, 0 Refill(s) Active 11/27/2014 [facility] Lidocaine Hydrochloride 0.05 MG/MG Trans dermal Patch [Lidoderm] 0 Refill(s) Active 11/27/2014 [facility] tramadol hydrochloride 50 MG Oral Tablet 0 Refill(s) Active 11/27/2014 [facility] rOPINIRole 0.25 mg oral tablet 0 Refill(s) Active 11/27/2014 [facility] midodrine 10 mg oral tablet 0 Refill(s) Active 11/27/2014 [facility] NovoLOG 70/30 26 unit, SUB-Q, 0 Refill(s) Active 11/27/2014 [facility] simvastatin 10 mg oral tablet 10 mg = 1 tab, PO, Bedtime, # 30 tab, 0 Refill(s) Active 11/27/2014 [facility] DULoxetine 20 mg oral delayed release capsule 0 Refill(s) Active 11/27/2014 [facility] Vital-D Special Instructions: D3 2000u po qd Active 11/02/2014 [facility] sevelamer carbonate 800 MG Oral Tablet [Renvela] Special Instructions: 3w/ meals and 1/ smack Active 11/02/2014 [facility] nter 72 HR Scopolamine 0.0139 MG/HR Transdermal Patch Special Instructions: 1 patch q3 days Active 11/02/2014 [facility] nt carvedilol 3.125 mg oral tablet 0 Refill(s) Active 11/02/2014 [facility] Promethazine Hydrochloride 12.5 MG Oral Tablet [Phenergan] Special Instructions: prn q8hrs for n/v Active 11/02/2014 [facility] nt cyclobenzaprine 10 mg oral tablet Special Instructions: prn Active 11/02/2014 [facility] Nephro-Melodie Special Instructio ns: qd Active 11/02/2014 [facility] diazepam 5 mg oral tablet 5 mg = 1 tab, PO, QID, Muscle Spasms, # 5 tab, 0 Refill(s) Active 09/19/2014 [facility] Diazepam 5 mg, Route: IVP, Zach g form: INJ, ONCE, Dosing Weight 84.007, kg, Priority: STAT, Start date: 09/19/14 10:39:00, Stop date: 09/19/14 10:39:00 Inactive 09/19/2014 [facility] Hydromorphone 0.5 mg, Route: I [employer], ONCE, Dosing Weight 84.007, kg, Priority: STAT, Start date: 09/19/14 9:59:00, Stop date: 09/19/14 9:59:00 Inactive 09/19/2014 [facility] Ondansetron 4 mg, Route: IVP, Drug form: INJ, ONCE, Dosing Weight 84.007, kg, Priority: STAT, Start date: 09/19/14 9:47:00, Stop date: 09/19/14 9:47:00 Inactiv e 09/19/2014 [facility] Hydromorphone 0.5 mg, Route: I [employer], ONCE, Dosing Weight 84.007, kg, Priority: STAT, Start date: 09/19/14 7:23:00, Stop date: 09/19/14 7:23:00 Inactive 09/19/2014 [facility] Sodium Chloride 0.154 MEQ/ML Injectable Solution 500 mL, 500 ml/hr, Infuse Over: 1 Hour, Route: IV, ONCE, Priority: STAT, Dosing Weight 84.007 kg, Start date: 09/19/14 7:22:00, Duration: 1 doses or times, Stop date: 09/19/14 7:22:00 Inactive 09/19/2014 [facility] Ondansetron 4 mg, Route: IVP, Drug form: INJ, ONCE, Dosing Weight 84.007, kg, Priority: STAT, Start date: 09/19/14 7:22:00, Stop date: 09/19/14 7:22:00 Inactiv e 09/19/2014 [facility] Bentyl 20 mg, Route: PO, ONCE, Dosing Weight 77.273, kg, Priority: STAT, Start date: 09/03/14 9:30:00, Stop date: 09/03/14 9:30:00 Inactive 09/03/2014 [facility] Morphine 2 mg, Route: IVP, Zach g form: INJ, ONCE, Dosing Weight 77.273, kg, Priority: STAT, Start date: 09/03/14 9:30:00, Stop date: 09/03/14 9:30:00 Inactive 09/03/2014 [facility] Ondansetron 4 MG Oral Tablet [Zofran] 4 mg = 1 tab, PO, Q8H, # 10 tab, 0 Refill(s) Active 09/03/2014 [facility] Acetaminophen 300 MG / Codeine Phosphate 30 MG Oral Tablet [Tylenol with Codeine #3] 1 - 2 tab, PO, Q4H, Pain, # 20 tab, 0 Re fill(s) Active 09/03/2014 [facility] Dicyclomine Hydrochloride 20 MG Oral Tablet [Bentyl] 20 mg = 1 tab, PO, QID, # 28 tab, 0 Refill(s) Active 09/03/2014 [facility] Ketorolac 30 mg, Route: IVP, D rug form: INJ, ONCE, Dosing Weight 77.273, kg, Priority: STAT, Start date: 09/03/14 8:19:00, Stop date: 09/03/14 8:19:00 Inactiv e 09/03/2014 [facility] Morphine 4 mg, Route: IVP, Zach g form: INJ, ONCE, Dosing Weight 77.273, kg, Priority: STAT, Start date: 09/03/14 8:18:00, Stop date: 09/03/14 8:18:00 Inactive 09/03/2014 [facility] Ondansetron 4 mg, Route: IVP, ONCE, Dosing Weight 77.273, kg, Priority: STAT, Start date: 09/03/14 6:46:00, Stop date: 09/03/14 6:46:00 Inactive 09/03/2014 [facility] Morphine 4 mg, Route: IVP, ONC E, Dosing Weight 77.273, kg, Priority: STAT, Start date: 09/03/14 6:46:00, Stop date: 09/03/14 6:46:00 Inactive 09/03/2014 [facility] Saline Flush 0.9% Notes: (Same as: BD Posiflush) Inactive 09/03/2014 [facility] Midodrine Notes: (Same as:Proa matine) No Longer Active 08/03/2014 [facility] have RPh verify & bar pt own Midrin caps (C-IV) have RPh verify & bar pt own Midrin caps (C-IV), 1 attn notice, Drug form: MISC, Route: MISC, TID, 08/02/14 16:00:00, Duration: 30 day, Stop date: 09/01/14 8:00:00 Inactive 08/02/2014 [facility] Morphine 4 mg, Route: IV, Q4H, Dosing Weight 72.273, kg, Start date: 08/02/14 12:00:00, Duration: 30 day, Stop date: 09/01/14 8:00:00 Inactive 08/02/2014 [facility] Morphine Notes: (Same as:MORPh ine Sulfate) Inactive 08/02/2014 [facility] Ascorbic Acid / Biotin / Folic Acid / Ni acin / pantothenate / pyridoxine / Riboflavin / Thiamine / Vitamin B 12 Notes: (Same as:One Tab Daily, Tab-A-Melodie + Beta Carotene) Give with food. Inactive 08/02/2014 [facility] Nitroglycerin 0.4 MG Sublingual Tablet Notes: (Same as:Nitroquick, Nitrostat) "Do Not Crush" Sublingual tablet Inactive 08/02/2014 [facility] Atropine 0.5 mg, 5 mL, Route: IVP, Drug form: INJ, PRN, Dosing Weight 72.273, kg, PRN Bradycardia, Start date: 08/02/14 1:06:00, Duration: 30 day, Stop date: 09/01/14 0:05:00, symptomatic bradycardia, HR <40/ minute Inactive 08/02/2014 [facility] NS 250 mL 250 mL, Rate: 30 ml/ hr, Infuse over: 8.3 hr, Route: IV, Dosing Weight 72.273 kg, Total Volume: 250, Priority: NOW, Start date: 08/01/14 23:52:00, Duration: 30 day, Stop date: 08/31/14 23:51:00 No Longer Active 08/02/2014 [facility] Topamax Notes: (Same As: Topam ax) "Do Not Crush" No Longer Active 08/02/2014 [facility] Simvastatin Notes: (Same as: Z ocor) No Longer Active 08/02/2014 [facility] Levemir Notes: Same as Levemir "single patient use only" No Longer Active 08/02/2014 [facility] duloxetine Notes: (Same as: Cy mbalta) (Do Not Crush) No Longer Active 08/02/2014 [facility] Renvela Notes: Same as: Renvela No Longer Active 08/01/2014 [facility] ropinirole Notes: (Same as: Re quip) No Longer Active 08/01/2014 [facility] Lyrica Notes: (Same as: Lyrica) No Longer Active 08/01/2014 [facility] oxybutynin Notes: Same as: Dit ropan) No Longer Active 08/01/2014 [facility] NovoLOG 70/30 Notes: Roll in p alms of hands gently; Do not shake vigorously. (Same as: NovoLOG Mix) "single patient use only" Stable for 14 days at room temperature Expires in days from Date No Longer Active 08/01/2014 [facility] gabapentin 300 MG Oral Capsule Notes: (Same as: Neurontin) No Longer Active 08/01/2014 [facility] tramadol hydrochloride 50 MG Oral Tablet Notes: Not to exceed 400mg/day. (Same As: Ultram) No Longer Active 08/01/2014 [facility] Promethazine Notes: (Same as: Phenergan) No Longer Active 08/01/2014 [facility] Midrin Notes: (Same as: Midrin) No Longer Active 08/01/2014 [facility] sevelamer carbonate 800 MG Oral Tablet [Renvela] 1,600 mg = 2 tab, PO, PRN, With Snack Active 08/01/2014 [facility] Ascorbic Acid 60 MG / Calcium Pantothena te 10 MG / D-BIOTIN 0.3 MG / Folic Acid 0.8 MG / Niacinamide 20 MG / pyridoxine 10 MG / Riboflavin 1.7 MG / Thiamine 1.5 MG / Vitamin B 12 0.006 MG Oral Tablet [Brooke-Melodie] 1 tab, PO, Daily Active 08/01/2014 [facility] NovoLOG 70/30 26 unit, SUB-Q, TID-Meals Active 08/01/2014 [facility] insulin detemir 100 UNT/ML Injectable So lution [Levemir] = 60 unit, SUB-Q, Bedtime Active 08/01/2014 [facility] DULoxetine 20 mg oral delayed release capsule 20 mg = 1 cap, PO, Bedtime Active 08/01/2014 [facility] gabapentin 100 MG Oral Capsule Notes: (Same as: Neurontin) Inactive 08/01/2014 [facility] Benadryl 25 mg, Route: IVP, ON CE, Dosing Weight 77.273, kg, Priority: STAT, Start date: 08/01/14 12:48:00, Stop date: 08/01/14 12:48:00 Inactive 08/01/2014 [facility] Reglan 10 mg, Route: IVP, Drug form: INJ, ONCE, Dosing Weight 77.273, kg, Priority: STAT, Start date: 08/01/14 12:48:00, Stop date: 08/01/14 12:48:00 Inactive 08/01/2014 [facility] Dilaudid 0.5 mg, Route: IVP, O NCE, Dosing Weight 77.273, kg, Priority: STAT, Start date: 08/01/14 12:08:00, Stop date: 08/01/14 12:08:00 Inactive 08/01/2014 [facility] Dextrose 50% Syringe 12.5 gm, 25 mL, Route: IVP, Drug Form: INJ, Dosing Weight 77.273, kg, PRN, PRN Blood Glucose Results, Start date: 08/01/14 10:07:00, Duration: 30 day, Stop date: 08/31/14 9:06:00 No Longer Active 08/01/2014 [facility] Glucagon 1 mg, Route: IM, Drug form: PDR/INJ, PRN, Dosing Weight 77.273, kg, PRN Blood Glucose Results, Start date: 08/01/14 10:07:00, Duration: 30 day, Stop date: 08/31/14 9:06:00 No Longer Active 08/01/2014 [facility] Insulin, Aspart, Human Notes: Roll in palms of hands gently; Do not shake vigorously. (Same as: NovoLOG) "single patient use only" Stable for 28 days at room temperature. Expires in days from Date No Longer Active 08/01/2014 [facility] Ondansetron Notes: (Same as: Z haleyran) No Longer Active 08/01/2014 [facility] Morphine Notes: (Same as:MORPh ine Sulfate) No Longer Active 08/01/2014 [facility] Dilaudid 0.5 mg, Route: IVP, O NCE, Dosing Weight 77.273, kg, Priority: STAT, Start date: 08/01/14 9:12:00, Stop date: 08/01/14 9:12:00 Inactive 08/01/2014 [facility] Morphine 4 mg, Route: IVP, ONC E, Dosing Weight 77.273, kg, Start date: 08/01/14 8:08:00, Stop date: 08/01/14 8:08:00 Inactive 08/01/2014 [facility] Fentanyl 50 microgram, Route: IVP, ONCE, Dosing Weight 77.273, kg, Priority: STAT, Start date: 08/01/14 7:15:00, Stop date: 08/01/14 7:15:00 Inactive 08/01/2014 [facility] Zofran 4 mg, Route: IVP, Drug form: INJ, ONCE, Dosing Weight 77.273, kg, Priority: STAT, Start date: 08/01/14 7:15:00, Stop date: 08/01/14 7:15:00 Inactive 08/01/2014 [facility] cosyntropin 0.25 mg, Route: IV P, Drug form: PDR/INJ, ONCE, Dosing Weight 72.273, kg, Start date: 11/26/13 14:00:00, Stop date: 11/26/13 14:00:00(Same As: Cortrosyn) Inactive 11/26/2013 [facility] Maxipime + Sodium Chloride 0.9% IV 100 mL 1 gm, Route: IVPB, [id number], Start date: 11/24/13 20:00:00, Duration: 30 day, Stop date: 12/23/13 20:00:00(Same As: Maxipime) No Longer Active Shebib 11/25/2013 [facility] vancomycin 1 gm, 200 mL, Route : IVPB, Drug form: INJ, Q-M-W-F, Start date: 11/24/13 18:33:00, Duration: 30 day, Stop date: 12/22/13 21:00:00 No Longer Active Setoudeh 11/25/2013 [facility] morphine Sulfate 2 mg, 1 mL, R oute: IVP, Drug form: INJ, Q4H, Dosing Weight 72.273, kg, PRN Pain, Start date: 11/24/13 17:28:00, Duration: 30 day, Stop date: 12/24/13 17:27:00(Same as:MORPhine Sulfate) No Longer Active Mougouris 0 11/24/2013 [facility] Cortrosyn 0.25 mg, Route: IVP, Drug form: PDR/INJ, ONCE, Start date: 11/23/13 15:00:00, Stop date: 11/23/13 15:00:00(Same As: Cortrosyn) Inactive [facility] 10/27 [facility] sodium chloride 2 mL, Route: M ISC, Start date: 11/23/13 15:00:00, Stop date: 11/23/13 15:00:00preservative free. Inactive [facility] 11/23/2013 [facility] Haldol 1 mg, 0.2 mL, Route: IM , Drug form: INJ, Q6H, Dosing Weight 72.273, kg, PRN Agitation, Start date: 11/23/13 6:37:00, Duration: 30 day, Stop date: 12/23/13 6:36:00(Same as: Haldol) No Longer Active [facility] 11/23/2013 [facility] Haldol 1 mg, 0.2 mL, Route: IV , Drug form: INJ, Q6H, Dosing Weight 72.273, kg, PRN Agitation, Start date: 11/23/13 6:36:00, Duration: 30 day, Stop date: 12/23/13 6:35:00(Same as: Haldol) No Longer Active [facility] 11/23/2013 [facility] cloNIDine 0.1 mg oral tablet 0 .1 mg, 1 tab, Route: PO, Drug form: TAB, Q6H, Dosing Weight 72.273, kg, PRN See Nurse's Notes, Start date: 11/23/13 6:35:00, Duration: 30 day, Stop date: 12/23/13 6:34:00, prn systolic B/P > 160(Same As: Catapres) No Longer Active Mauro 11/23/2013 [facility] Haldol 2 mg, 0.4 mL, Route: IM , Drug form: INJ, ONCE, Dosing Weight 72.273, kg, PRN Hallucinations, Start date: 11/22/13 16:47:00, Stop date: 12/22/13 16:46:00(Same as: Haldol) Inactive Mougtanneris 11/22/2013 [facility] hydrocortisone 10 mg, 1 tab, R oute: PO, Drug form: TAB, Q8PM, Dosing Weight 72.273, kg, Start date: 11/21/13 20:00:00, Duration: 30 day, Stop date: 12/20/13 20:00:00(Same as: Cortef) Take with food. No Longer Active Mena 11/22/2013 [facility] hydrocortisone 5 mg, 1 tab, Ro newtok: PO, Drug form: TAB, Q8PM, Dosing Weight 72.273, kg, Start date: 11/20/13 20:00:00, Duration: 30 day, Stop date: 12/19/13 20:00:00(Same as: Cortef) No Longer Active Mena 11/21/2013 [facility] Epogen (ESRD) 15,000 unit, 0.7 5 mL, Route: SUB-Q, Drug form: INJ, Q-M-W-F, Dosing Weight 72.273, kg, Start date: 11/20/13 17:00:00, Duration: 30 day, Stop date: 12/18/13 17:00:00(Same as: Procrit) epoetin shilpi 62100 unit/1 ml VL No Longer Active Mena 11/20/2013 [facility] ketorolac 30 mg/mL injectable solution 30 mg, 1 mL, Route: IV, Drug form: INJ, Q6H, Dosing Weight 72.273, kg, PRN as needed for pain, Start date: 11/20/13 13:26:00, Duration: 4 day, Stop date: 11/24/13 13:25:00(Same as:Toradol) IV bolus must be given >15 seconds. Give IM administration slowly and deeply into the muscle. Not for use > 4 days No Longer Active Rajesh 11/20 [facility] ketorolac 30 mg/mL injectable solution 30 mg, 1 mL, Route: IV, Drug form: INJ, Q6H, Dosing Weight 72.273, kg, Start date: 11/19/13 18:00:00, Duration: 4 day, Stop date: 11/23/13 12:00:00(Same as:Toradol) IV bolus must be given >15 seconds. Give IM administration slowly and deeply into the muscle. Not for use > 4 days No Longer Active Rajesh 11/20/2013 [facility] Phenergan + Sodium Chloride 0.9% IV 50 mL 25 mg, 1 mL, Route: IVPB, Q4H, PRN Nausea & Vomiting, Start date: 11/18/13 11:54:00, Duration: 30 day, Stop date: 12/18/13 11:53:00Do not give IV push. (Same as: Phenergan) No Longer Active Jasrpeet 11/18/2013 [facility] Sodium Chloride 0.9% (titrate) 250 mL 250 mL, Rate: scallop binder for use with blood product administration, Dosing Weight 72.273, kg, Route: IV, Total Volume: 250, Start Date: 11/17/13 9:22:00, Duration: 30 day, Stop date: 12/17/13 9:21:00, Replace Every: 24 hr No Longer Active Rajesh 11/17/2013 [facility] d50 syringe 25 gm, 50 mL, Rout e: IV, Drug Form: INJ, Dosing Weight 72.273, kg, PRN, PRN See Respiratory Notes, Start date: 11/17/13 9:20:00, Duration: 30 day, Stop date: 12/17/13 9:19:00, blood glucose <40 No Longer Active Rajesh 11/17 [facility] Robaxin + Sodium Chloride 0.9% IV 240 mL 1,000 mg, 10 mL, Route: IV, Drug form: INJ, Q8H, Dosing Weight 72.273, kg, Start date: 11/17/13 0:00:00, Duration: 30 day, Stop date: 12/16/13 16:00:00(Same as:Robaxin) No Longer Active Mougouris 11/17/2013 [facility] Imodium A-D 4 mg, 2 cap, Route : PO, Drug form: CAP, Q6H, Dosing Weight 72.273, kg, Start date: 11/16/13 18:00:00, Duration: 30 day, Stop date: 12/16/13 12:00:00(Same as: Imodium) MAX adult dose is 8 caps/day Inactive Mougouris 11/17/2013 [facility] Robaxin + Sodium Chloride 0.9% IV 240 mL 1,000 mg, 10 mL, Route: IV, Drug form: INJ, Q8H, Dosing Weight 72.273, kg, PRN Muscle Spasms, Start date: 11/16/13 17:56:00, Duration: 30 day, Stop date: 12/16/13 17:55:00(Same as:Robaxin) No Longer Active Mougouris 11/16/2013 [facility] Imodium A-D 2 mg, 10 mL, Route : PO, Drug form: LIQ, Q6H, Dosing Weight 72.273, kg, PRN Diarrhea, Start date: 11/16/13 17:46:00, Duration: 30 day, Stop date: 12/16/13 17:45:00(Same as: Imodium) No Longer Active Mougouris 11/16/2013 [facility] Imodium A-D 4 mg, 20 mL, Route : PO, Drug form: LIQ, Q6H, Dosing Weight 72.273, kg, PRN Diarrhea, Start date: 11/16/13 17:45:00, Duration: 30 day, Stop date: 12/16/13 17:44:00(Same as: Imodium) No Longer Active Mougouris 11/16/2013 [facility] Robaxin + Sodium Chloride 0.9% IV 240 mL 1,000 mg, 10 mL, Route: IV, Drug form: INJ, ONCE, Dosing Weight 72.273, kg, Start date: 11/16/13 12:45:00, Stop date: 11/16/13 12:45:00(Same as:Robaxin) Inactive Mougouris 11/16/2013 [facility] hydrocortisone 5 mg oral tablet 10 mg = 2 tab, PO, Daily, # 90 tab, 0 Refill(s) Active Mena 11/16/2013 [facility] hydrocortisone 10 mg, 1 tab, R oute: PO, Drug form: TAB, QAM, Dosing Weight 72.273, kg, Start date: 11/16/13 9:00:00, Duration: 30 day, Stop date: 12/15/13 9:00:00(Same as: Cortef) Take with food. No Longer Active Mena 11/16/2013 [facility] nystatin topical 100,000 units/g powder 1 appl, Route: TOP, QID, Drug form: PWDR, Start date: 11/15/13 17:00:00, Duration: 30 day, Stop date: 12/15/13 13:00:00(Same as:Mycostatin, Nilstat) For external use only. No Longer Active Mougouris 0 11/15/2013 [facility] hydrocortisone 5 mg, 1 tab, Ro newtok: PO, Drug form: TAB, Q2PM, Dosing Weight 72.273, kg, Start date: 11/15/13 14:00:00, Stop date: 12/14/13 14:00:00(Same as: Cortef) No Longer Active Mena 11/15/2013 [facility] Protonix 40 mg, 1 tab, Route: PO, Drug form: ECTAB, Before Breakfast, Start date: 11/15/13 7:30:00, Duration: 30 day, Stop date: 12/14/13 7:30:00Tablet should not be chewed or crushed. (Same as: Protonix) No Longer Active Mougouris 0 11/15/2013 [facility] pantoprazole 40 mg, Route: PO, Drug form: INJ, Before Breakfast, Dosing Weight 72.273, kg, Start date: 11/14/13 7:30:00, Duration: 30 day, Stop date: 12/13/13 7:30:00For IV push reconstitute with 10 ml 0.9% sodium chloride and push over 2 minutes. (Same as: Protonix) Inactive Mougouris 11/14/2013 [facility] carvedilol 3.125 mg, Route: PO , Drug form: TAB, Q12H, Dosing Weight 72.273, kg, Start date: 11/13/13 21:00:00, Duration: 30 day, Stop date: 12/13/13 9:00:00 Inactiv e Mougouris 11/14/2013 [facility] Topamax 50 mg, 2 tab, Route: P O, Drug form: TAB, Bedtime, Dosing Weight 72.273, kg, Start date: 11/13/13 21:00:00, Duration: 30 day, Stop date: 12/12/13 21:00:00(Same As: Topamax) "Do Not Crush" No Longer Active Mougouris 11/14/2013 [facility] simvastatin 10 mg, Route: PO, Drug form: TAB, Bedtime, Dosing Weight 72.273, kg, Start date: 11/13/13 21:00:00, Duration: 30 day, Stop date: 12/12/13 21:00:00 Inactive Mougour 11/14/2013 [facility] Renvela 2,400 mg, 3 tab, Route : PO, Drug form: TAB, TID- Meals, Dosing Weight 72.273, kg, Start date: 11/13/13 17:00:00, Duration: 30 day, Stop date: 12/13/13 12:00:00Same as: Renvela No Longer Active 11/13/2013 [facility] Epogen (ESRD) 10,000 unit, 1 m L, Route: SUB-Q, Drug form: INJ, Q-M-W-F, Dosing Weight 72.273, kg, Start date: 11/13/13 17:00:00, Duration: 30 day, Stop date: 12/11/13 17:00:00(Same as: Procrit) epoetin shilpi 92907 unit/1 ml VL. No Longer Active Rajesh 11/13/2013 [facility] Lyrica 75 mg, 1 cap, Route: PO , Drug form: CAP, BID, Dosing Weight 72.273, kg, Start date: 11/13/13 17:00:00, Duration: 30 day, Stop date: 12/13/13 9:00:00(Same as: Lyrica) No Longer Active Mougour 11/13/2013 [facility] oxybutynin 5 mg, 1 tab, Route: PO, Drug form: TAB, BID, Dosing Weight 72.273, kg, Start date: 11/13/13 17:00:00, Duration: 30 day, Stop date: 12/13/13 9:00:00Same as: Ditropan) No Longer Active [facility] 11/13/2013 [facility] gabapentin 300 mg oral capsule 300 mg, 1 cap, Route: PO, Drug form: CAP, BID, Dosing Weight 72.273, kg, Start date: 11/13/13 17:00:00, Duration: 30 day, Stop date: 12/13/13 9:00:00(Same as: Neurontin) No Longer Active [facility] 11/13/2013 [facility] carvedilol 3.125 mg, 1 tab, Ro [place]tok: PO, Drug form: TAB, BID, Dosing Weight 72.273, kg, Start date: 11/13/13 17:00:00, Duration: 30 day, Stop date: 12/13/13 9:00:00Give with food. (Same As: Coreg) No Longer Active Rajesh 11/13/2013 [facility] rOPINIRole 0.25 mg, 1 tab, Rou te: PO, Drug form: TAB, TID, Dosing Weight 72.273, kg, Start date: 11/13/13 13:00:00, Duration: 30 day, Stop date: 12/13/13 9:00:00(Same as: Requip) No Longer Active [facility] 11/13/2013 [facility] tramadol 50 mg oral tablet 50 mg, 1 tab, Route: PO, Drug form: TAB, TID, Dosing Weight 72.273, kg, Start date: 11/13/13 13:00:00, Duration: 30 day, Stop date: 12/13/13 9:00:00Not to exceed 400mg/day. (Same As: Ultram) No Longer Active [facility] 11/13/2013 [facility] promethazine 25 mg, 1 tab, Rou te: PO, Drug form: TAB, Q8H, Dosing Weight 72.273, kg, PRN as needed for nausea/vomiting, Start date: 11/13/13 12:22:00, Duration: 30 day, Stop date: 12/13/13 12:21:00(Same as: Phene rgan) No Longer Active [facility] 11/13/2013 [facility] oxybutynin 5 mg, Route: PO, Dr ug form: TAB, BID, Dosing Weight 72.273, kg, PRN, Start date: 11/13/13 12:22:00, Duration: 30 day, Stop date: 12/13/13 12:21:00, urinary spasm Inactive Mo ugouris 11/13/2013 [facility] Nitrostat 0.4 mg sublingual tablet 0.4 mg, 1 tab, Route: SL, Drug form: TAB, Q5Min, Dosing Weight 72.273, kg, PRN as needed for chest pain, Start date: 11/13/13 12:21:00, Duration: 30 day, Stop date: 12/13/13 12:20:00(Same as:Nitroquick, Nitrostat) "Do Not Crush" Sublingual tablet No Longer Active Mougouris 0 11/13/2013 [facility] midodrine 10 mg, 2 tab, Route: PO, Drug form: TAB, During Dialysis, Dosing Weight 72.273, kg, PRN Hypotension, Start date: 11/13/13 12:21:00, Duration: 30 day, Stop date: 12/13/13 12:20:00(Same as:Proamatine) No Longer Active Mougouris 0 11/13/2013 [facility] Flexeril 5 mg, 0.5 tab, Route: PO, Drug form: TAB, PRN, Dosing Weight 72.273, kg, PRN Muscle Spasms, Start date: 11/13/13 12:21:00, Duration: 30 day, Stop date: 12/13/13 12:20:00(Same As: Flexeril) No Longer Active Mougouris 11/13/2013 [facility] Ambien 5 mg, 1 tab, Route: PO, Drug form: TAB, Bedtime, Dosing Weight 72.273, kg, PRN Insomnia, Start date: 11/12/13 17:09:00, Duration: 30 day, Stop date: 12/12/13 17:08:00(Same As: Ambien) No Longer Active Seerangan 11/12/2013 [facility] Phenergan 25 mg, 1 mL, Route: IVP Central, Drug form: INJ, Q4H, Dosing Weight 72.273, kg, PRN Nausea & Vomiting, Start date: 11/12/13 9:14:00, Duration: 30 day, Stop date: 12/12/13 9:13:00Do not give IV push. (Same as: Phenergan) No Longer Active 11/12/2013 [facility] sterile water 300 mL + Dextrose 50% in Water IV 100 gm 300 mL, 60 ml/hr, Route: IVP, Drug Form: INJ, Dosing Weight 72.273, kg, Start date: 11/11/13 19:13:00, Duration: 30 day, Stop date: 12/11/13 19:12:00 No Longer Active Mena 11/12 [facility] D20W 500 mL 500 mL, Rate: 60 m l/hr, Infuse over: 8.3 hr, Route: IV, Dosing Weight 72.273 kg, Total Volume: 500, Start date: 11/11/13 18:40:00, Stop date: 12/12/13 18:39:00 Inactive eranglisa 11/12/2013 [facility] Phenergan 25 mg, 1 mL, Route: IM, Drug form: INJ, Q6H, Dosing Weight 72.273, kg, PRN Nausea & Vomiting, Start date: 11/11/13 14:33:00, Duration: 30 day, Stop date: 12/11/13 14:32:00Do not give IV push. (Same as: Phenergan) No Longer Active 11/11/2013 [facility] Phenergan 25 mg, 1 tab, Route: PO, Drug form: TAB, Q4H, Dosing Weight 72.273, kg, PRN Nausea & Vomiting, Start date: 11/11/13 13:18:00, Duration: 30 day, Stop date: 12/11/13 13:17:00(Same as: Phenergan) No Longer Active 11/11/2013 [facility] promethazine 25 mg oral tablet 25 mg = 1 tab, PO, Q8H, as needed for nausea/vomiting, 0 Refill(s) [facility] oxybutynin 5 mg oral tablet 5 mg = 1 tab, PO, BID, Other-See Comments, # 30 tab, 0 Refill(s) Active [facility]11[facility]2013 [facility] Levemir FlexPen 16 units in AM , 70 units in PM, SUB-Q, BID, 0 Refill(s) No Longer Active 11/11/2013 [facility] tramadol 50 mg oral tablet See Instructions, TID, 1 tab, 0 Refill(s)1 tab [facility] simvastatin 10 mg oral tablet 10 mg = 1 tab, PO, Bedtime, # 30 tab, 0 [facility]ill(s) [facility] carvedilol 3.125 mg oral tablet 3.125 mg = 1 tab, PO, BID, on days without HD, # 180 tab, 0 Refill(s)on days without HD [facility]11[facility]2013 [facility] midodrine 10 mg oral tablet 10 mg = 1 tab, PO, 0 Refill(s) Active 11/11/2013 [facility] NovoLOG Mix 70/30 FlexPen 30 u nits breakfast, 26 units lunch, 30 units dinne, 0 Refill(s) No Longer Active 11/11/2013 [facility] rOPINIRole 0.25 mg oral tablet 0.25 mg = 1 tab, PO, TID, # 90 tab, 0 Refill(s) [facility] Topomax Topomax, 50 mg =, PO, Bedtime, Refill(s) 0 Active 11/11/2013 [facility] Flexeril 5 mg oral tablet See Instructions, Muscle Spasms, 0 Refill(s) Active 11/11/2013 [facility] morphine Sulfate 2 mg, 1 mL, R oute: IVP, Drug form: INJ, Q4H, Dosing Weight 72.273, kg, PRN Pain, Start date: 11/10/13 21:08:00, Duration: 30 day, Stop date: 12/10/13 21:07:00(Same as:MORPhine Sulfate) No Longer Active [place] 11/11/2013 [facility] pantoprazole 40 mg, Route: IVP , Drug form: INJ, Daily, Dosing Weight 75, kg, Priority: Routine, Start date: 11/10/13 9:00:00, Duration: 30 day, Stop date: 12/09/13 9:00:00For IV push reconstitute with 10 ml 0.9% sod ium chloride and push over 2 minutes. (Same as: Protonix) No Longer Active Alexsander 11/10/2013 [facility] nitroglycerin 0.4 mg sublingual tablet 0.4 mg, 1 tab, Route: SL, Drug form: TAB, Q5Min, PRN Chest Pain, Start date: 11/10/13 6:27:00, Duration: 30 day, Stop date: 12/10/13 6:26:00(Same as:Nitroquick, Nitrostat) "Do Not Crush" Sublingual tablet No Longer Active [facility] 11/10/2013 [facility] atropine 0.5 mg, 5 mL, Route: IVP, Drug form: INJ, PRN, PRN Bradycardia, Start date: 11/10/13 6:26:00, Duration: 30 day, Stop date: 12/10/13 6:25:00 No Longer Active [facility] 11/10/2013 [facility] Zofran 4 mg, 2 mL, Route: IV, Drug form: INJ, Q4H, Dosing Weight 75, kg, PRN as needed for nausea/vomiting, Start date: 11/10/13 6:15:00, Duration: 30 day, Stop date: 12/10/13 6:14:00(Same as: Zofran) No Longer Active [facility] acetaminophen 650 mg, 20.3 mL, Route: PO, Drug form: LIQ, Q4H, Dosing Weight 75, kg, PRN Pain 1-3/Temp > 100.4 F, Start date: 11/10/13 6:15:00, Stop date: 12/10/13 6:14:00Max acetaminophen = 4000mg/day (4 gm/day). (Same as: Tylenol) N o Longer Active Mougouris 11/10/2013 [facility] acetaminophen-hydrocodone 325 mg-5 mg oral tablet 1 tab, Route: PO, Drug Form: TAB, Dosing Weight 75, kg, Q4H, PRN Pain Score 1-3, Start date: 11/10/13 6:15:00, Duration: 30 day, Stop date: 12/10/13 6:14:00(Same as: [place] 325/5) Do not exceed 4gm/day of acetaminophen. No Longer Active Agraharkar 11/10/2013 [facility] docusate 100 mg, 1 cap, Route: PO, Drug form: CAP, BID, Dosing Weight 75, kg, PRN Constipation, Start date: 11/10/13 6:15:00, Duration: 30 day, Stop date: 12/10/13 6:14:00(Same as: Colace) (Do Not Crush) No Longer Active Jaspreet 11/10/2013 [facility] sodium chloride 154 mEq + Dextrose 10% i n Water IV 961.5 mL 961.5 mL, Rate: 100 ml/hr, Infuse over: 10 hr, Route: IV, Dosing Weight 75 kg, Total Volume: 1,000, Start date: 11/10/13 4:12:00, Stop date: 12/10/13 4:11:00 No Longer Active Seerangan 11/10/2013 [facility] D10NS 1000 mL 1,000 mL, Rate: 125 ml/hr, Infuse over: 8 hr, Route: IV, Dosing Weight 75 kg, Total Volume: 1,000, Start date: 11/10/13 4:08:00, Duration: 30 day, Stop date: 12/10/13 4:07:00 Inactive Stepan 11/10/2013 [facility] Flagyl 500 mg, 1 tab, Route: P O, Drug form: TAB, [id number], Dosing Weight 89.5, kg, Start date: 08/10/13 14:00:00, Duration: 30 day, Stop date: 09/09/13 6:00:00(Same as: Flagyl) Take with food/ avoid alcohol Inactive Rahim 08/10/2013 [facility] influenza virus vaccine, inactivated 0.5 ml, Route: IM, Drug Form: SUSP, Start date: 08/10/13 11:00:00, Stop date: 08/10/13 11:00:00 Inactive SYSTEM 08/10/2013 [facility] Neutra-Phos 1 pkt, Route: PO, Drug Form: PDR/REC, Dosing Weight 89.5, kg, ONCE, Start date: 08/10/13 10:14:00, Stop date: 08/10/13 10:14:00(Same as: Neutra-Phos) Each 1.25 gm pkt has 250mg phosphorous. Mix w/2. 5oz water and stir. Inactive Mena 08/10/2013 [facility] ciprofloxacin 250 mg oral tablet 250 mg, 1 tab, PO, [id number], 20 tab, Substitution Allowed, TAB Active [facility] 08/10/2013 [facility] Cipro 250 mg, 1 tab, Route: PO , Drug form: TAB, [id number], Dosing Weight 89.5, kg, Start date: 08/10/13 8:00:00, Duration: 30 day, Stop date: 09/08/13 20:00:00May interfere w/enteral feedings - Take 1 hr before or 2 hrs after antacids, dairy pdt & minerals. On empty stomach. Inactive [facility] 08/10/2013 [facility] Flagyl 500 mg oral tablet 500 mg, 1 tab, PO, [id number], 30 tab, Substitution Allowed, TAB Active [facility] 08/10/2013 [facility] Neurontin 100 mg, 1 cap, Route : PO, Drug form: CAP, TID, Dosing Weight 89.5, kg, Start date: 08/09/13 17:00:00, Duration: 30 day, Stop date: 09/08/13 13:00:00(Same as: Neurontin) No Longer Active Mena 08/09/2013 [facility] Protonix 40 mg, 1 tab, Route: PO, Drug form: ECTAB, Before Dinner, Start date: 08/09/13 16:30:00, Duration: 30 day, Stop date: 09/07/13 16:30:00Tablet should not be chewed or crushed. (Same as: Protonix) No Longer Active [facility] 08/09 [facility] Epogen (ESRD) 3,000 unit, Rout e: SUB-Q, Q-M-W-F, Dosing Weight 92.869, kg, Start date: 08/09/13 9:00:00, Duration: 30 day, Stop date: 09/08/13 8:59:00 No Longer Active Mena 08/09/2013 [facility] Dilaudid 1 mg, 1 mL, Route: IV , Drug form: INJ, Q3H, Dosing Weight 92.869, kg, PRN Pain Score 4-6, Start date: 08/08/13 21:03:00, Duration: 30 day, Stop date: 09/07/13 21:02:00 No Longer Active Candace 08/09/2013 [facility] Epogen (ESRD) 3,000 unit, 1 mL , Route: SUB-Q, Drug form: INJ, Q-M-W-F, Dosing Weight 81.818, kg, Start date: 08/07/13 9:00:00, Duration: 30 day, Stop date: 09/06/13 8:59:00(Same as: Procrit) epoetin shilpi 3000 unit/1 ml VL. No Longer Active [facility] 08/07/2013 [facility] potassium chloride 40 mEq, 2 t ab, Route: PO, Drug form: ERTAB, ONCE, Dosing Weight 92.869, kg, Priority: NOW, Start date: 08/07/13 5:44:00, Stop date: 08/07/13 5:44:00(Same as: K-Dur 20) "Do Not Crush" With food and full glass of water Inactive [facility] 08/07/2013 [facility] Protonix 40 mg, Route: IVP, Dr ug form: INJ, Before Dinner, Dosing Weight 81.818, kg, Patient is NPO, Start date: 08/06/13 16:30:00, Duration: 30 day, Stop date: 09/05/13 16:29:00For IV push reconstitute with 10 ml 0.9% sodium chloride and push over 2 minutes. (Same as: Protonix) No Longer Active [facility] 08/06/2013 [facility] Cipro 400 mg, 200 mL, Route: I VPB, Drug form: INJ, [id number], Start date: 08/06/13 16:00:00, Duration: 30 day, Stop date: 09/05/13 20:59:00Do not refrigerate No Longer Active Rajesh 08/06/2013 [facility] potassium chloride 20 mEq, 1 t ab, Route: PO, Drug form: ERTAB, ONCE, Dosing Weight 81.818, kg, Start date: 08/06/13 10:49:00, Stop date: 08/06/13 10:49:00(Same as: K-Dur 20) "Do Not Crush" With food and full glass of water Inactive [facility] 1 [facility] ropinirole 0.25 mg, 1 tab, Rou te: PO, Drug form: TAB, TID, Dosing Weight 81.818, kg, Start date: 08/06/13 9:00:00, Duration: 30 day, Stop date: 09/05/13 8:59:00(Same as: Requip) No Longer Active [facility] 08/06/2013 [facility] Lyrica 75 mg, 1 cap, Route: PO , Drug form: CAP, BID, Dosing Weight 81.818, kg, Start date: 08/06/13 9:00:00, Duration: 30 day, Stop date: 09/05/13 8:59:00(Same as: Lyrica) No Longer Active Rajesh 08/06/2013 [facility] oxybutynin 5 mg, 1 tab, Route: PO, Drug form: TAB, BID, Dosing Weight 81.818, kg, Start date: 08/06/13 9:00:00, Duration: 30 day, Stop date: 09/05/13 8:59:00Same as: Ditropan) No Longer Active [facility] 08/06/2013 [facility] gabapentin 300 mg oral capsule 300 mg, 1 cap, Route: PO, Drug form: CAP, BID, Dosing Weight 81.818, kg, Start date: 08/06/13 9:00:00, Duration: 30 day, Stop date: 09/05/13 8:59:00(Same as: Neurontin) No Longer Active Mena 08/06/2013 [facility] Renvela 2,400 mg, 3 tab, Route : PO, Drug form: TAB, TID- Meals, Dosing Weight 81.818, kg, Start date: 08/06/13 8:00:00, Duration: 30 day, Stop date: 09/05/13 7:59:00Same as: Renvela No Longer Active Mena 08/06/2013 [facility] heparin 5,000 unit, 1 mL, Rout e: SUB-Q, Drug form: INJ, Q8H, Dosing Weight 81.818, kg, Start date: 08/06/13 0:00:00, Duration: 30 day, Stop date: 09/04/13 23:59:00porcine heparin No Longer Active [facility] 08/06/2013 [facility] Topamax 50 mg, 2 tab, Route: P O, Drug form: TAB, Bedtime, Dosing Weight 81.818, kg, Start date: 08/05/13 21:00:00, Duration: 30 day, Stop date: 09/04/13 20:59:00(Same As: Topamax) "Do Not Crush" No Longer Active [facility] 08/06/2013 [facility] simvastatin 10 mg, 1 tab, Rout e: PO, Drug form: TAB, Bedtime, Dosing Weight 81.818, kg, Start date: 08/05/13 21:00:00, Duration: 30 day, Stop date: 09/04/13 20:59:00(Same as: Zocor) No Longer Active [facility] 08/06/2013 [facility] carvedilol 3.125 mg, 1 tab, Ro [place]tok: PO, Drug form: TAB, Q12H, Dosing Weight 81.818, kg, Start date: 08/05/13 21:00:00, Duration: 30 day, Stop date: 09/04/13 20:59:00Give with food. (Same As: Coreg) No Longer Active [facility] 08/06/2013 [facility] nitroglycerin 0.4 mg sublingual tablet 0.4 mg, 1 tab, Route: SL, Drug form: TAB, Q5Min, PRN Chest Pain, Start date: 08/05/13 18:28:00, Duration: 30 day, Stop date: 09/04/13 17:27:00(Same as:Nitroquick, Nitrostat) "Do Not Crush" Sublingual tablet No Longer Active [facility] 08/05/2013 [facility] atropine 0.5 mg, 5 mL, Route: IVP, Drug form: INJ, PRN, PRN Bradycardia, Start date: 08/05/13 18:28:00, Duration: 30 day, Stop date: 09/04/13 17:27:00 No Longer Active [facility] 08/05/2013 [facility] insulin aspart 12 unit, 0.12 m L, Route: SUB-Q, Drug form: SOLN, TID-Before Meals, Dosing Weight 81.818, kg, PRN Blood Glucose Results, Start date: 08/05/13 18:18:00, Duration: 30 day, Stop date: 09/04/13 18:17:00Roll in palms of hands gently; Do not shake vigorously. (Same as: NovoLog) "single patient use only" Stable for 28 days at room temperature. Expires in days from Date No Longer Active [facility] 08/05/2013 [facility] glucagon 1 mg, Route: IM, Drug form: PDR/INJ, PRN, Dosing Weight 81.818, kg, PRN Blood Glucose Results, Start date: 08/05/13 18:18:00, Duration: 30 day, Stop date: 09/04/13 17:17:00 No Longer Active [facility] 08/05/2013 [facility] Dextrose 50% Syringe 25 gm, 50 mL, Route: IVP, Drug Form: INJ, Dosing Weight 81.818, kg, PRN, PRN Blood Glucose Results, Start date: 08/05/13 18:18:00, Duration: 30 day, Stop date: 09/04/13 17:17:00 No Longer Active [facility] 08/05/2013 [facility] Dilaudid 2 mg, 2 mL, Route: IV , Drug form: INJ, Q3H, Dosing Weight 81.818, kg, PRN Pain Score 7-10, Start date: 08/05/13 18:17:00, Duration: 30 day, Stop date: 09/04/13 18:16:00 No Longer Active [facility] 08/05/2013 [facility] midodrine 10 mg, 2 tab, Route: PO, Drug form: TAB, During Dialysis, Dosing Weight 81.818, kg, PRN Bradycardia, Start date: 08/05/13 18:14:00, Duration: 30 day, Stop date: 09/04/13 17:13:00(Same as:Proamatine) No Longer Active [facility] 08/05 [facility] Nitrostat 0.4 mg sublingual tablet 0.4 mg, 1 tab, Route: SL, Drug form: TAB, Q5Min, Dosing Weight 81.818, kg, PRN as needed for chest pain, Start date: 08/05/13 18:14:00, Duration: 30 day, Stop date: 09/04/13 17:13:00 Inactive [facility] 08/05 [facility] potassium chloride 20 mEq, 1 t ab, Route: PO, Drug form: ERTAB, ONCE, Dosing Weight 81.818, kg, Start date: 08/05/13 17:57:00, Stop date: 08/05/13 17:57:00(Same as: K-Dur 20) "Do Not Crush" With food and full glass of water Inactive Seerangan 1 [facility] ondansetron 4 mg, 2 mL, Route: IVP, Drug form: INJ, Q8H, Dosing Weight 81.818, kg, PRN Nausea & Vomiting, Start date: 08/05/13 17:33:00, Duration: 30 day, Stop date: 09/04/13 17:32:00(Same as: Zofran) No Longer Active [facility] 08/05/2013 [facility] acetaminophen 650 mg, 20.3 mL, Route: PO, Drug form: LIQ, Q4H, Dosing Weight 81.818, kg, PRN Pain 1-3/Temp > 100.4 F, Start date: 08/05/13 17:33:00, Duration: 30 day, Stop date: 09/04/13 17:32:00Max acetaminophen = 4000mg/day (4 gm/day). (Same as: Tylenol) No Longer Active [facility] 08/05/2013 [facility] Flagyl 500 mg, 100 mL, Route: IVPB, Drug form: INJ, Q6H, Dosing Weight 81.818, kg, Priority: STAT, Start date: 08/05/13 17:33:00, Duration: 30 day, Stop date: 09/04/13 6:00:00(Same as: Flagyl) Avoid alcohol. No Longer Active [facility] 08/05 [facility] Cipro 400 mg, Route: IVPB, Q12 H, Dosing Weight 81.818, kg, Priority: STAT, Start date: 08/05/13 17:33:00, Duration: 30 day, Stop date: 09/04/13 17:32:00 Inactive [facility] 08/05/2013 [facility] ondansetron 4 mg, Route: IVP, Drug form: INJ, ONCE, Dosing Weight 81.818, kg, Start date: 08/05/13 17:04:00, Stop date: 08/05/13 17:04:00 Inactive Walters 09/2013 [facility] Cipro 400 mg, Route: IVPB, ONC E, Dosing Weight 81.818, kg, Start date: 08/05/13 16:02:00, Stop date: 08/05/13 16:02:00 Inactive [facility] 08/05/2013 [facility] Flagyl 500 mg, Route: IVPB, ON CE, Dosing Weight 81.818, kg, PRN, Start date: 08/05/13 16:01:00, stat Inactive [facility] 08/05/2013 [facility] Novolog Mix 70/30 PenFill subcutaneous suspension 4-12 units, SUB-Q, Sliding Scale, PRN, 4 units (BS 180-200) 8 units (BS 201-250) 10 units (BS 251-300) 12 units (BS 301-400), blood glucose, Substitution Allowed4 units (BS 180-200) 8 units (BS 201-250) 10 units (BS 251-300) 12 units (BS 301- 400) Active 08/05/2013 [facility] Topamax 50 mg oral tablet 50 m g, 1 tab, PO, Bedtime, 60 tab, Substitution Allowed, TAB Active [facility] 08/05/2013 [facility] Nitrostat 0.4 mg sublingual tablet 0.4 mg, 1 tab, SL, Q5Min, PRN, 100 tab, Chest Pain, Substitution Allowed Active [facility] 08/05/2013 [facility] Midrin 1 cap, PO, PRN, PRN, mi graine headache, Substitution Allowed, Maintenance Active 08/05/2013 [facility] Flexeril 5 mg oral tablet 5 mg , 1 tab, PO, PRN, PRN, muscle spasms, Substitution Allowed Active 08/05/2013 [facility] midodrine 10 mg oral tablet 10 mg, 1 tab, PO, During Dialysis, Dialysis M-W-F, 270 tab, Substitution Allowed, TABDialysis M-W-F Active 08/05/2013 [facility] Lyrica 75 mg oral capsule 75 m g, 1 cap, PO, BID, 90 cap, Substitution Allowed, CAP Active [facility] 08/05/2013 [facility] gabapentin 300 mg oral capsule 300 mg, 1 cap, PO, BID, 90 cap, Substitution Allowed Active [facility] 08/05/2013 [facility] Zofran 4 mg, Route: IVP, Drug form: INJ, ONCE, Dosing Weight 81.818, kg, Priority: STAT, Start date: 08/05/13 9:11:00, Stop date: 08/05/13 9:11:[address] [facility] 08/05/2013 [facility] morphine Sulfate 4 mg, Route: IVP, ONCE, Dosing Weight 81.818, kg, Priority: STAT, Start date: 08/05/13 7:09:00, Stop date: 08/05/13 7:09:[address] [facility] 08/05 [facility] ondansetron 4 mg, Route: IVP, ONCE, Dosing Weight 81.818, kg, Priority: STAT, Start date: 08/05/13 7:09:00, Stop date: 08/05/13 7:09:[address] [facility] 08/05 [facility] Saline Flush 0.9% 5 mL, Route: IVP, Drug Form: INJ, Dosing Weight 81.818, kg, PRN, PRN Line Flush, Start date: 08/05/13 7:09:00, Duration: 24 hr, Stop date: 08/06/13 7:08:00(Same as: BD Posiflush) Inactive [facility] 08/05/2013 [facility] morphine Sulfate 4 mg, Route: IVP, Drug form: INJ, ONCE, Dosing Weight 88, kg, Priority: STAT, Start date: 08/03/13 18:05:00, Stop date: 08/03/13 18:05:00 Inactive Thayer 08/03/2013 [facility] pantoprazole 40 mg oral enteric coated tablet 40 mg, 1 tab, PO, Daily, 30 tab, Substitution Allowed, ECTAB No Longer Active Thayer 08/03/2013 [facility] Vicodin 5/500 oral tablet 1-2 tablets, PO, Q4-6H, PRN, 30 tab, for Pain, Substitution Allowed, [facility] Phenergan 25 mg oral tablet 25 mg, 1 tab, PO, Q4H, PRN, 25 tab, Nausea, Substitution Allowed On Hold [facility] 08/03/2013 [facility] Carafate 1 g oral tablet 1 gm, 1 tab, PO, QID-Before Meals, 120 tab, Substitution Allowed No Longer Active [facility]ayer 08/03/2013 [facility] Phenergan 25 mg, Route: IM, ON CE, Dosing Weight 88, kg, Priority: STAT, Start date: 08/03/13 16:57:00, Stop date: 08/03/13 16:57:00 Inactive Walters 08/03/2013 [facility] Dextrose 50% Syringe 25 gm, Ro newtok: IVP, Dosing Weight 88, kg, ONCE, STAT, Start date: 08/03/13 16:40:00, Stop date: 08/03/13 16:40:00 Inactive [facility] 07/2013 [facility] morphine Sulfate 4 mg, Route: IVP, Drug form: INJ, ONCE, Dosing Weight 88, kg, Priority: STAT, Start date: 08/03/13 15:49:00, Stop date: 08/03/13 15:49:00 Inactive [facility] 08/03/2013 [facility] Saline Flush 0.9% 5 mL, Route: IVP, Drug Form: INJ, Dosing Weight 88, kg, PRN, PRN Line Flush, Start date: 08/03/13 15:17:00, Duration: 24 hr, Stop date: 08/04/13 15:16:00(Same as: BD Posiflush) No Longer Active [facility] 08/03/2013 [facility] ondansetron 4 mg, Route: IVP, ONCE, Dosing Weight 88, kg, Priority: STAT, Start date: 08/03/13 15:17:00, Stop date: 08/03/13 15:17:00 Inactive [facility] 07/2013 [facility] Carafate 1 g oral tablet 1 gm, 1 tab, PO, QID-Before Meals, 120 tab, Substitution Allowed, TAB No Longer Active Alexsander 07/30/2013 [facility] Phenergan 25 mg oral tablet 25 mg, PO, Q4H, PRN, 30 tab, Allergic reaction, Substitution Allowed, TAB No Longer Active Erlinxochitl 07/30/2013 [facility] Phenergan 25 mg, 1 tab, Route: PO, Drug form: TAB, Q4H, Dosing Weight 90.909, kg, PRN Allergic reaction, Start date: 07/30/13 11:33:00, Duration: 30 day, Stop date: 08/29/13 11:32:00(Same as: Phenergan) Inactive Alexsander 07/30/2013 [facility] Carafate 1 g/10 mL oral suspension 1 gm, 1 tab, Route: PO, Drug form: TAB, QID-Before Meals, Dosing Weight 90.909, kg, Start date: 07/28/13 13:00:00, Stop date: 08/27/13 11:30:00May interfere w/enteral feeds - Take 1 hr before or 2 hr after antacids, dairy pdt, meals & minerals - On empty stomach. (Same As: Carafate) No Longer Active Mina 07/28/2013 [facility] morphine Sulfate 2 mg, 1 mL, R oute: IVP, Drug form: INJ, Q6H, Dosing Weight 90.909, kg, PRN Pain Score 6-10, Start date: 07/27/13 11:32:00, Duration: 30 day, Stop date: 08/26/13 11:31:00(Same as:MORPhine Sulfate) No Longer Active Rajesh 07/27/2013 [facility] morphine Sulfate 2 mg, Route: IVP, Q4H, Dosing Weight 90.909, kg, PRN Pain, Start date: 07/27/13 11:31:00, Duration: 30 day, Stop date: 08/26/13 11:30:00 Inactive Rajesh 07/27/2013 [facility] Reglan 5 mg, 1 mL, Route: IV, Drug form: INJ, Q6H, Start date: 07/27/13 0:00:00, Duration: 30 day, Stop date: 08/25/13 18:00:00(Same as: Reglan) No Longer Active Rajesh 07/27/2013 [facility] epoetin shilpi 2,000 unit, 1 mL, Route: SUB-Q, Drug form: INJ, Q-M-W-F, Start date: 07/26/13 17:00:00, Duration: 30 day, Stop date: 08/23/13 17:00:00(Same as: Procrit) epoetin shilpi 2000 unit/1 ml VL No Longer Active Rajesh 07/26/2013 [facility] Epogen (ESRD) 3,000 unit, 1 mL , Route: SUB-Q, Drug form: INJ, Q-M-W-F, Dosing Weight 90.909, kg, Start date: 07/26/13 17:00:00, Duration: 30 day, Stop date: 08/23/13 17:00:00(Same as: Procrit) epoetin shilpi 3000 unit/1 ml VL. No Longer Active Rajesh 07/26/2013 [facility] Reglan 10 mg oral tablet 10 mg , 1 tab, Route: PO, Drug form: TAB, TID-Before Meals, Dosing Weight 90.909, kg, Start date: 07/26/13 16:30:00, Duration: 30 day, Stop date: 08/25/13 11:30:00(Same as: Reglan) Take 30 min before meals Inactive Rajesh 07/26/2013 [facility] NS 1,000 mL 1,000 mL, Rate: 40 ml/hr, Infuse over: 25 hr, Route: IV, Dosing Weight 90.909 kg, Total Volume: 1,000, Start date: 07/25/13 14:44:00, Duration: 1 day, Stop date: 07/26/13 14:43:00 No Longer Active Rajesh 07/25/2013 [facility] Novolog Mix 70/30 PenFill 26 u nit, 0.26 mL, Route: SUB- Q, Drug form: INJ, Lunch, Dosing Weight 90.909, kg, Start date: 07/25/13 12:00:00, Duration: 30 day, Stop date: 08/23/13 12:00:00Roll in palms of hands gently; Do not shake vigorously. (Same as: NovoLog Mix) "single patient use only" Stable for 14 days at room temperature Expires in days from Date No Longer Active Alexsander 07/25/2013 [facility] insulin detemir 16 unit, 0.16 mL, Route: SUB-Q, Drug form: INJ, QAM, Dosing Weight 90.909, kg, Start date: 07/25/13 9:00:00, Duration: 30 day, Stop date: 08/23/13 9:00:00Same as Levemir "single patient use only" No Longer Active Erlinugxochitl 07/25/2013 [facility] Novolog Mix 70/30 PenFill 30 u nit, 0.3 mL, Route: SUB-Q, Drug form: INJ, Breakfast, Dosing Weight 90.909, kg, Start date: 07/25/13 8:00:00, Duration: 30 day, Stop date: 08/23/13 8:00:00Roll in palms of hands gently; Do not shake vigorously. (Same as: NovoLog Mix) "single patient use only" Stable for 14 days at room temperature Expires in days from Date No Longer Active Mougouris 07/25/2013 [facility] pantoprazole 40 mg, 1 tab, Rou te: PO, Drug form: ECTAB, Before Breakfast, Dosing Weight 90.909, kg, Start date: 07/25/13 7:30:00, Duration: 30 day, Stop date: 08/23/13 7:30:00Tablet should not be chewed or crushed. (Same as: Protonix) N o Longer Active Mougouris 07/25/2013 [facility] Sodium Chloride 0.9% IV IV, 0 ml/hr, ONCE, Start date: 07/25/13 4:21:00, 1,000 ml Inactive [facility] 07/25/2013 [facility] simvastatin 10 mg, 1 tab, Rout e: PO, Drug form: TAB, Bedtime, Dosing Weight 90.909, kg, Start date: 07/24/13 21:00:00, Duration: 30 day, Stop date: 08/22/13 21:00:00(Same as: Zocor) No Longer Active Mougouris 07/25/2013 [facility] carvedilol 3.125 mg, 1 tab, Ro [place]tok: PO, Drug form: TAB, Q12H, Dosing Weight 90.909, kg, Start date: 07/24/13 21:00:00, Duration: 30 day, Stop date: 08/23/13 9:00:00Give with food. (Same As: Coreg) No Longer Active Cardenas 07/25/2013 [facility] Renvela 2,400 mg, 3 tab, Route : PO, Drug form: TAB, TID- Meals, Dosing Weight 90.909, kg, Start date: 07/24/13 17:00:00, Duration: 30 day, Stop date: 08/23/13 12:00:00Same as: Renvela No Longer Active Mougouris 07/24/2013 [facility] ropinirole 0.25 mg, 1 tab, Rou te: PO, Drug form: TAB, TID, Dosing Weight 90.909, kg, Start date: 07/24/13 17:00:00, Duration: 30 day, Stop date: 08/23/13 13:00:00(Same as: Requip) No Longer Active 07/24/2013 [facility] oxybutynin 5 mg, 1 tab, Route: PO, Drug form: TAB, BID, Dosing Weight 90.909, kg, Start date: 07/24/13 17:00:00, Duration: 30 day, Stop date: 08/23/13 9:00:00Same as: Ditropan) No Longer Active 07/24/2013 [facility] insulin detemir 50 unit, 0.5 m L, Route: SUB-Q, Drug form: INJ, QPM, Dosing Weight 90.909, kg, Start date: 07/24/13 17:00:00, Duration: 30 day, Stop date: 08/22/13 17:00:00Same as Levemir "single patient use only" No Longer Active [facility] 07/24/2013 [facility] Novolog Mix 70/30 PenFill 30 u nit, 0.3 mL, Route: SUB-Q, Drug form: INJ, Dinner, Dosing Weight 90.909, kg, Start date: 07/24/13 17:00:00, Duration: 30 day, Stop date: 08/22/13 17:00:00Roll in palms of hands gently; Do not shake vigorously. (Same as: NovoLog Mix) "single patient use only" Stable for 14 days at room temperature Expires in days from Date No Longer Active [facility] 07/24/2013 [facility] tramadol 50 mg oral tablet 50 mg, 1 tab, Route: PO, Drug form: TAB, Q4H, Dosing Weight 90.909, kg, PRN Pain Score 4-6, Start date: 07/24/13 15:01:00, Duration: 30 day, Stop date: 08/23/13 15:00:00Not to exceed 400mg/day. (Same As: Ultram) N o Longer Active [facility] 07/24/2013 [facility] promethazine 12.5 mg, 1 tab, R oute: PO, Drug form: TAB, Q4H, Dosing Weight 90.909, kg, PRN as needed for nausea/vomiting, Start date: 07/24/13 15:01:00, Duration: 30 day, Stop date: 08/23/13 15:00:00(Same as: Jordan mckeno) No Longer Active [facility] 07/24/2013 [facility] acetaminophen-hydrocodone 325 mg-10 mg/1 5 mL oral solution 15 mL, Route: PO, Drug Form: ELIXOlena g Weight 90.909, kg, Q4H, PRN Pain Score 1-5, Start date: 07/24/13 15:00:00, Stop date: 08/23/13 14:59:00(acetaminophen-hydrocodone 334-5 mg/10 ml oral ELIX) Do not exceed 4gm/day of acetaminophen. No Longer Active Mougouris 07/24/2013 [facility] Renvela 800 mg oral tablet 2,4 00 mg, 3 tab, PO, TID- Meals, 270 tab, Substitution Allowed, TAB Active Moug ouris 07/24/2013 [facility] Novolog Mix 70/30 PenFill subcutaneous suspension 30 unit, SUB-Q, Dinner, 3 ml, Substitution Allowed, SUSP Active Mougouris 07/24/2013 [facility] Novolog Mix 70/30 PenFill subcutaneous suspension 26 unit, SUB-Q, Lunch, 3 ml, Substitution Allowed, SUSP Active Mougouris 07/24/2013 [facility] Novolog Mix 70/30 PenFill subcutaneous suspension 30 unit, SUB-Q, Breakfast, 3 ml, Substitution Allowed, SUSP Active Mougouris 07/24/2013 [facility] Levemir FlexPen 100 units/mL subcutaneous solution 70 unit, SUB-Q, QPM, 3 ml, Substitution Allowed, SOLN Active Mougouris 07/24/2013 [facility] Levemir FlexPen 100 units/mL subcutaneous solution 16 unit, SUB-Q, QAM, 3 ml, Substitution Allowed, SOLN Active Mougouris 07/24/2013 [facility] carvedilol 3.125 mg oral tablet 3.125 mg, 1 tab, PO, Q12H, takes after dialysis, on dialysis days (--), 60 tab, Substitution Allowed, TABtakes after dialysis, on dialysis days (--) Active [facility] 07/24/2013 [facility] simvastatin 10 mg oral tablet 0, 1 tab, PO, Bedtime, 30 tab, Substitution Allowed Active Mougouris 07/24/2013 [facility] tramadol 50 mg oral tablet 50 mg, 1 tab, PO, Q4H, PRN, 60 tab, Pain, Substitution Allowed, TAB Active Moug is 07/24/2013 [facility] promethazine 12.5 mg oral tablet 12.5 mg, 1 tab, PO, Q4H, PRN, 60 tab, Nausea & Vomiting, Substitution Allowed, TAB No Longer Active M[facility]ouris 07/24/2013 [facility] ropinirole 0.25 mg oral tablet 0.25 mg, 1 tab, PO, TID, 90 tab, Substitution Allowed, TAB Active Moug is 07/24/2013 [facility] oxybutynin 5 mg oral tablet 5 mg, 1 tab, PO, BID, 30 tab, Substitution Allowed, TAB Active Mougis 07/24/2013 [facility] docusate 100 mg, 1 cap, Route: PO, Drug form: CAP, BID, Dosing Weight 104.545, kg, PRN Constipation, Start date: 07/24/13 12:06:00, Duration: 30 day, Stop date: 08/23/13 12:05:00(Same as: Colace) (Do Not Crush) No Longer Active [facility] 07/24 [facility] ondansetron 4 mg, 2 mL, Route: IVP, Drug form: INJ, Q8H, Dosing Weight 104.545, kg, PRN Nausea & Vomiting, Start date: 07/24/13 12:06:00, Duration: 30 day, Stop date: 08/23/13 12:05:00(Same as: Zofran) No Longer Active [facility] 07/24 [facility] Reglan 5 mg, 1 mL, Route: IV, Drug form: INJ, Q6H, Dosing Weight 104.545, kg, Start date: 07/24/13 12:00:00, Duration: 30 day, Stop date: 08/23/13 6:00:00(Same as: Reglan) No Longer Active Mena 07/24/2013 [facility] NS 1,000 mL 1,000 mL, Rate: 40 ml/hr, Infuse over: 25 hr, Route: IV, Dosing Weight 104.545 kg, Total Volume: 1,000, Start date: 07/24/13 11:25:00, Duration: 30 day, Stop date: 08/23/13 11:24:00 No Longer Active Mena 07/24/2013 [facility] ondansetron 4 mg, Route: IVP, Drug form: INJ, ONCE, Dosing Weight 104.545, kg, Priority: STAT, Start date: 07/24/13 10:21:00, Stop date: 07/24/13 10:21:00 Inactive [facility] 07/24/2013 [facility] potassium chloride 20 mEq oral tablet, extended releas e 20 mEq, 1 tab, Route: PO, Drug form: ERTAB, ONCE, Dosing Weight 104.545, kg, Priority: STAT, Start date: 07/24/13 8:26:00, Stop date: 07/24/13 8:26:00(Same as: K-Dur 20) "Do Not Crush" With food and full glass of water Inactive [facility] 07/24/2013 [facility] Saline Flush 0.9% 5 mL, Route: IVP, Drug Form: INJ, Dosing Weight 104.545, kg, PRN, PRN Line Flush, Start date: 07/24/13 6:57:00, Duration: 24 hr, Stop date: 07/25/13 6:56:00Same as: BD Posiflush Sterile No Longer Active [facility] 07/24 [facility] ondansetron 4 mg, 2 mL, Route: IVP, Drug form: INJ, ONCE, Dosing Weight 104.545, kg, Priority: STAT, Start date: 07/24/13 6:57:00, Stop date: 07/24/13 6:57:00(Same as: Zofran) Inactive Is gagnon 07/24/2013 [facility] morphine Sulfate 4 mg, Route: IVP, ONCE, Dosing Weight 104.545, kg, Priority: STAT, Start date: 07/24/13 6:57:00, Stop date: 07/24/13 6:57:00 Inactive [facility] 07/24 [facility] docusate sodium 150 mg/15 mL oral liquid 100 mg, 10 ml, PO, Daily, 240 ml, Substitution Allowed, LIQ PO Active Marvin lowe 07/03/2013 [facility] ondansetron 4 mg oral disintegrating strip 4 mg, 1 ea, PO, Q4H, 30 strip, Substitution Allowed PO Active Marvin lowe 07/03/[address] [facility] docusate sodium 100 mg oral capsule 100 mg, 1 cap, PO, BID, 30 cap, Substitution Allowed PO No Longer Active [place] 07/03/2013 [facility] acetaminophen-hydrocodone 325 mg-10 mg/1 5 mL oral solution 15 ml, PO, Q4H, PRN, 400 mL, for pain, S ubstitution Allowed, Maintenance, SOLN PO Active [place] 06/2013 [facility] normal saline 0.9% IV 250 mL 2 50 mL, Rate: 250 ml/hr, Infuse over: 1 hr, Route: IV, Dosing Weight 100.455 kg, Total Volume: 250, Start date: 07/01/13 12:10:00, Duration: 1 doses or times, Stop date: 07/01/13 13:09:00 IV No Longer Active [place] 07/01/2013 [facility] acetaminophen-hydrocodone 300 mg-10 mg/1 5 mL oral liquid 15 mL, Route: PO, Drug Form: SOLN, Dosin g Weight 100.455, kg, Q6H, PRN Pain, Start date: 07/01/13 9:02:00, Duration: 30 day, Stop date: 07/31/13 9:01:00 PO No Longer Active [place] 04/2013 [facility] Zofran 4 mg, 2 mL, Route: IV, Drug form: INJ, Q6H, Dosing Weight 100.455, kg, PRN Nausea, Start date: 06/30/13 10:59:00, Stop date: 07/30/13 10:58:00 IV No Longer Active Clarence 06/30/[address] [facility] Dilaudid 0.2 mg, 0.1 mL, Route : IV, Drug form: INJ, Q6H, Dosing Weight 100.455, kg, PRN Pain, Start date: 06/30/13 6:23:00, Stop date: 07/30/13 6:22:00 IV No Longer Active [place] 06/30/[address] [facility] Benadryl 25 mg, 0.5 mL, Route: IVP, Drug form: INJ, ONCE, Dosing Weight 100.455, kg, PRN Itching, Start date: 06/30/13 3:28:00 IVP No Longer Active [facility] [place] 06/30 [facility] bisacodyl 10 mg, 1 supp, Route : NC, Drug form: SUPP, Daily, Dosing Weight 100.455, kg, PRN Constipation, Start date: 06/29/13 10:14:00, Duration: 30 day, Stop date: 07/29/13 10:13:00 NC No Longer Active [place] 06/29/2013 [facility] ondansetron 8 mg, 4 mL, Route: IVP, Drug form: INJ, Q4H, Dosing Weight 100.455, kg, PRN Nausea & Vomiting, Start date: 06/29/13 8:00:00, Duration: 2 doses or times, Stop date: Limited # of times IVP No Longer Active Manasa 06/29/2013 [facility] Zofran 4 mg, Route: IVP, Drug form: INJ, ONCE, Dosing Weight 100.455, kg, Start date: 06/29/13 3:41:00, Stop date: 06/29/13 3:41:00 IVP No Longer Active [facility] [place] 06/29 [facility] acetaminophen-codeine 300 mg-30 mg oral tablet 15 mL, Route: PO, Drug Form: LIQ, Dosing Weight 100.455, kg, Q4H, Start date: 06/27/13 7:11:00, Stop date: 07/27/13 8:00:00 PO No Longer Active [place] 06/27/2013 [facility] Benadryl 25 mg, 0.5 mL, Route: IVP, Drug form: INJ, ONCE, Dosing Weight 100.455, kg, PRN Itching, Start date: 06/26/13 0:31:00 IVP No Longer Active [facility] [place] 06/26 [facility] Dilaudid 0.3 mg, 0.15 mL, Rout e: IVP, Drug form: INJ, ONCE, Dosing Weight 100.455, kg, Start date: 06/25/13 10:22:00, Stop date: 06/25/13 10:22:00 IVP No Longer Active [place] 06/25/2013 [facility] Fosrenol 1,000 mg, Route: PO, TID, Dosing Weight 100.455, kg, Start date: 06/24/13 17:00:00, Duration: 30 day, Stop date: 07/24/13 13:00:00 PO No Longer Active Christie 06/24/2013 [facility] Renvela 2.4 gm, 1 pkt, Route: PO, Drug form: PDR/REC, TID-Meals, Start date: 06/24/13 17:00:00, Duration: 30 day, Stop date: 07/24/13 12:00:00 PO No Longer Active Soriano 06/24/2013 [facility] Zofran 4 mg, 2 mL, Route: IVP, Drug form: INJ, ONCE, Dosing Weight 100.455, kg, Start date: 06/24/13 12:54:00, Stop date: 06/24/13 12:54:00 IVP No Longer Active Tima 06/24/2013 [facility] ondansetron 4 mg, 2 mL, Route: IVP, Drug form: INJ, Q12H, Dosing Weight 100.455, kg, PRN Nausea & Vomiting, Start date: 06/24/13 12:54:00, Duration: 30 day, Stop date: 07/24/13 12:53:00 IVP No Longer Active Cliff 06/24/2013 [facility] Ofirmev 1,000 mg, 100 mL, Rout e: IV, Drug form: INJ, Q6H, Dosing Weight 100.455, kg, Start date: 06/24/13 12:00:00, Duration: 1 day, Stop date: 06/25/13 6:00:00 IV No Longer Active Salas Ambriz 06/24/2013 [facility] amLODipine 5 mg, 1 tab, Route: PO, Drug form: TAB, H-Tz-Ga-Sa-Higgins, Dosing Weight 100.455, kg, Start date: 06/24/13 9:00:00, Duration: 30 day, Stop date: 07/23/13 9:00:00 PO No Longer Active Isamar 06/24/2013 [facility] Dilaudid 0.5 mg, 0.25 mL, Rout e: IV, Drug form: INJ, Q4H, Dosing Weight 100.455, kg, PRN Pain, Start date: 06/24/13 8:24:00, Stop date: 07/24/13 8:23:00 IV No Longer Active Manasa 06/24/2013 [facility] nter NS 250 mL 250 mL, Rate: 250 ml /hr, Infuse over: 1 hr, Route: IV, Dosing Weight 100.455 kg, Total Volume: 250, Start date: 06/23/13 20:43:00, Duration: 30 day, Stop date: 07/23/13 20:42:00, DosingNeona chasidy Dosing IV No Longer Active Christie 06/24/2013 [facility] Dilaudid 0.2 mg, 0.1 mL, Route : IV, Drug form: INJ, ONCE, Dosing Weight 100.455, kg, Start date: 06/23/13 18:14:00, Stop date: 06/23/13 18:14:00 IV No Longer Active Canalichio 06/23/2013 [facility] nter carvedilol 50 mg, 2 tab, Route : PO, Drug form: TAB, Daily, Dosing Weight 100.455, kg, Start date: 06/23/13 10:00:00, Duration: 30 day, Stop date: 07/23/13 9:00:00 PO No Longer Active Canalichio 06/23/2013 [facility] Epogen (ESRD) 5,000 unit, Rout e: IV, Q-M-W-F, Dosing Weight 100.455, kg, Start date: 06/23/13 9:00:00, Duration: 30 day, Stop date: 07/21/13 9:00:00 IV No Longer Active Clarence 06/23/2013 [facility] nter heparin 5,000 unit, 1 mL, Rout e: SUB-Q, Drug form: INJ, Q8H, Start date: 06/23/13 8:00:00, Duration: 30 day, Stop date: 07/23/13 0:00:00 SUB-Q No Longer Active Christie 2012 [facility] Lovenox 30 mg, Route: SUB-Q, D rug form: INJ, [id number], Dosing Weight 100.455, kg, For CrCl <30mL/min, Start date: 06/23/13 7:00:00, Duration: 30 day, Stop date: 07/22/13 7:00:00 SUB-Q No Longer Active Christie 06/23/2013 [facility] Sodium Chloride 0.45% IV 1,000 mL 1,000 mL, Rate: 50 ml/hr, Infuse over: 20 hr, Route: IV, Dosing Weight 100.455 kg, Total Volume: 1,000, Start date: 06/22/13 20:17:00, Duration: 30 day, Stop date: 07/22/13 20:16:00 IV No Longer Active Canalichio 06/23/2013 [facility] cefoxitin (SCIP) 2 gm, Route: IVPB, Drug form: INJ, Q6H, Dosing Weight 100.455, kg, Start date: 06/22/13 18:00:00, Duration: 1 doses or times, Stop date: 06/22/13 18:00:00 IVPB No Longer Active Soriano 06/22/2013 [facility] Renvela 2,400 mg, 3 tab, Route : PO, Drug form: TAB, TID- Meals, Dosing Weight 100.455, kg, Start date: 06/22/13 17:00:00, Duration: 30 day, Stop date: 07/22/13 12:00:00 PO No Longer Active Christie 06/22/2013 [facility] nter Protonix 40 mg, Route: IVP, Dr ug form: INJ, Before Dinner, Dosing Weight 100.455, kg, Start date: 06/22/13 16:30:00, Duration: 30 day, Stop date: 07/21/13 16:30:00 IVP No Longer Active Isamar 06/22/2013 [facility] nter Dilaudid 0.2 mg, 0.1 mL, Route : IV, Drug form: INJ, Q2H, Dosing Weight 100.455, kg, PRN Breakthrough Pain, Start date: 06/22/13 16:14:00, Duration: 30 day, Stop date: 07/22/13 16:13:00 IV No Longer Active Canalichio 06/22/2013 [facility] heparin 5,000 unit, 1 mL, Rout e: SUB-Q, Drug form: INJ, Q8H, Start date: 06/22/13 16:00:00, Duration: 30 day, Stop date: 07/22/13 8:00:00 SUB-Q No Longer Active Soriano 06/22/2013 [facility] ondansetron 4 mg, 2 mL, Route: IVP, Drug form: INJ, ONCE, Dosing Weight 100.455, kg, PRN Nausea & Vomiting, Start date: 06/22/13 13:15:00 IVP No Longer Active [place] 06/22/2013 [facility] hydromorphone 0.5 mg, 0.25 mL, Route: IVP, Drug form: INJ, Q5Min, Dosing Weight 100.455, kg, PRN Pain Score 7-10, Start date: 06/22/13 13:15:00, Duration: 5 doses or times, Stop date: 06/24/13 0:00:00 IVP No Longer Active [place] 06/22/2013 [facility] labetalol 5 mg, 1 mL, Route: I [employer], Drug form: INJ, Q5Min, Dosing Weight 100.455, kg, PRN Elevated BP, Start date: 06/22/13 13:15:00, Duration: 5 doses or times, Stop date: 06/24/13 0:00:00 IVP No Longer Active [place] 06/22/2013 [facility] flumazenil 0.2 mg, 2 mL, Route : IVP, Drug form: INJ, PRN, Dosing Weight 100.455, kg, PRN Benzodiazepine Reversal, Initial dose, Start date: 06/22/13 13:15:00, Duration: 30 day, Stop date: 07/22/13 13:14:00 IVP No Longer Active [place] 06/22 [facility] naloxone 0.04 mg, 0.1 mL, Rout e: IVP, Drug form: INJ, Q2MIN, Dosing Weight 100.455, kg, PRN Narcotic Reversal, Start date: 06/22/13 13:15:00, Duration: 8 doses or times, Stop date: 06/24/13 0:00:00 IVP No Longer Active [place] 06/22/2013 [facility] insulin aspart 2 unit, 0.02 mL , Route: SUB-Q, Drug form: SOLN, TID-Before Meals, Dosing Weight 100.455, kg, PRN Blood Glucose Results, Start date: 06/22/13 12:46:00, Duration: 30 day, Stop date: 07/22/13 12:45:00 SUB-Q No Longer Active Isamar 06/22 [facility] Saline Flush 0.9% 5 ml, Route: IVP, Drug Form: INJ, Dosing Weight 100.455, kg, PRN, PRN Line Flush, Start date: 06/22/13 12:46:00, Duration: 30 day, Stop date: 07/22/13 12:45:00 IVP No Longer Active [facility] 06/22/2013 [facility] Sodium Chloride 0.45% IV 1,000 mL 1,000 mL, Rate: 85 ml/hr, Infuse over: 11.8 hr, Route: IV, Dosing Weight 100.455 kg, Total Volume: 1,000, Start date: 06/22/13 12:46:00, Duration: 30 day, Stop date: 07/22/13 12:45:00 IV No Longer Active Clarence 06/22/2013 [facility] ondansetron 4 mg, 2 mL, Route: IVP, Drug form: INJ, Q12H, Dosing Weight 100.455, kg, PRN Nausea & Vomiting, Start date: 06/22/13 12:46:00, Duration: 30 day, Stop date: 07/22/13 12:45:00 IVP No Longer Active Alfred 06/22/2013 [facility] morphine Sulfate 2 mg, 1 mL, R oute: IVP, Drug form: INJ, Q2H, Dosing Weight 100.455, kg, PRN Pain Score 1-5, Start date: 06/22/13 12:46:00, Duration: 30 day, Stop date: 07/22/13 12:45:00 IVP No Longer Active Canalichio 06/22/2013 [facility] acetaminophen-hydrocodone 300 mg-10 mg/1 5 mL oral liquid 15 mL, Route: PO, Drug Form: SOLN, Dosin g Weight 100.455, kg, Q4H, PRN Pain Score 1-3, Start date: 06/22/13 12:46:00, Duration: 30 day, Stop date: 07/22/13 12:45:00 PO No Longer Active Manasa 06/22/2013 [facility] bupivacaine liposome 20 mL, [place]: InFILtration(local), Drug Form: INJ, ONCE, Start date: 06/22/13 9:05:00, Stop date: 06/22/13 9:05:00 InFILtration(local) No Longer Active Isamar 06/22/2013 [facility] nter cefoxitin 2 gm, Route: IVPB, P RE OP, Dosing Weight 100.455, kg, Start date: 06/22/13 8:59:00 IVPB No Longer Active Isamar 06/22/2013 [facility] isometheptene mucate Substitut ion Allowed No Longer Active 06/22/2013 [facility] tramadol Substitution Allowed No Longer Active 06/22/2013 [facility] topiramate Substitution Allowed No Longer Active 06/22/2013 [facility] cyclobenzaprine Substitution A llowed No Longer Active 06/22/2013 [facility] pantoprazole 40 mg daily PO, S ubstitution Allowed Active 06/22/2013 [facility] ibuprofen 400 mg oral tablet 2 tab, Route: PO, Drug form: TAB, ONCE, Dosing Weight 100, kg, Priority: STAT, Start date: 01/12/13 14:18:00, Stop date: 01/12/13 14:18:00 PO No Longer Active Marifer 01/12/2013 [facility] ondansetron 4 mg, Route: IVP, ONCE, Dosing Weight 100, kg, Priority: STAT, Start date: 01/12/13 11:58:00, Stop date: 01/12/13 11:58:00 IVP No Longer Active Marifer 01/12/2013 [facility] aspirin 325 mg tablet 325 mg, Route: PO, Drug form: TAB, ONCE, Dosing Weight 100, kg, Priority: STAT, Start date: 01/12/13 11:58:00, Stop date: 01/12/13 11:58:00 PO No Longer Active Marifer 01/12/2013 [facility] ondansetron 4 mg, 2 mL, Route: IVP, Drug form: INJ, ONCE, Dosing Weight 47.727, kg, Priority: STAT, Start date: 01/06/13 14:34:00, Stop date: 01/06/13 14:34:00 IVP No Longer Active Ovi 01/06/2013 [facility] hydromorphone 1 mg, 1 mL, Rout e: IVP, Drug form: SOLN, ONCE, Dosing Weight 47.727, kg, PRN as needed for pain, Priority: STAT, Start date: 01/06/13 14:33:00 IVP No Longer Active Ovi 01/06/2013 [facility] baclofen 5 mg, 0.5 tab, Route: PO, Drug form: TAB, ONCE, Dosing Weight 106.6, kg, Start date: 12/28/12 15:06:00, Stop date: 12/28/12 15:06:00 PO No Longer Active Mena 12/28/2012 [facility] MiraLax 17 gm, 1 pkt, Route: P O, Drug form: PWDR, ONCE, Dosing Weight 106.6, kg, Start date: 12/28/12 15:05:00, Duration: 1 doses or times, Stop date: 12/28/12 15:05:00 PO No Longer Active Rajesh 12/28/2012 [facility] ondansetron 4 mg oral tablet 4 mg, 1 tab, PO, Q8H, PRN, 20 tab, Nausea, Substitution Allowed, TAB PO Active Ramon quinn 12/28/2012 [facility] Zofran 4 mg, 1 tab, Route: PO, Drug form: TAB, Q8H, Dosing Weight 106.6, kg, PRN Nausea, Start date: 12/28/12 11:04:00, Duration: 30 day, Stop date: 01/27/13 11:03:00 PO No Longer Active Eryn 12/28/2012 [facility] Epogen (ESRD) 10,000 unit, 1 m L, Route: SUB-Q, Drug form: INJ, Q-M-W-F, Dosing Weight 102.727, kg, Start date: 12/28/12 9:00:00, Duration: 30 day, Stop date: 01/25/13 9:00:00 SUB-Q No Longer Active Rajesh 12/28/2012 [facility] Protonix 40 mg, 1 tab, Route: PO, Drug form: ECTAB, Daily, Start date: 12/28/12 9:00:00, Duration: 30 day, Stop date: 01/26/13 9:00:00 PO No Longer Active Onochmartha 12/28/2012 [facility] Sodium Chloride 0.9% IV IV, 30 ml/hr, ONCALL, Start date: 12/27/12 15:00:00, Duration: 1, 250 ml IV No Longer Active Rajesh 12/27/2012 [facility] PhosLo Gelcap 2,001 mg, 3 cap, Route: PO, Drug form: CAP, TID, Dosing Weight 106.6, kg, Start date: 12/27/12 13:00:00, Duration: 30 day, Stop date: 01/26/13 9:00:00 PO No Longer Active Rajesh 12/27/2012 [facility] amLODipine 5 mg, 1 tab, Route: PO, Drug form: TAB, W-Pj-Lm-Sa-Higgins, Dosing Weight 102.727, kg, Start date: 12/27/12 9:00:00, Duration: 30 day, Stop date: 01/24/13 9:00:00 PO No Longer Active Eryn 12/27/2012 [facility] calcium carbonate 1,000 mg, 2 tab, Route: CHEW, Drug form: TAB, TID, Dosing Weight 102.727, kg, Start date: 12/26/12 17:00:00, Duration: 30 day, Stop date: 01/25/13 13:00:00 CHEW No Longer Active Rajesh 12/26/2012 [facility] albuterol 0.083% inhalation solution 5 mg, Route: NEB, ONCE, Dosing Weight 102.727, kg, Start date: 12/26/12 14:38:00, Stop date: 12/26/12 14:38:00 NEB No Longer Active Mena 12/26/2012 [facility] insulin aspart 10 unit, Route: IVP, ONCE, Dosing Weight 102.727, kg, Start date: 12/26/12 14:36:00, Stop date: 12/26/12 14:36:00 IVP No Longer Active Rajesh 12/26 [facility] d50 syringe 25 gm, 50 mL, Rout e: IVP, Drug Form: INJ, Dosing Weight 102.727, kg, ONCE, Start date: 12/26/12 14:35:00, Stop date: 12/26/12 14:35:00 IVP No Longer Active Rajesh 12/26/2012 [facility] Kayexalate 30 gm, Route: PO, D rug form: SUSP, ONCE, Dosing Weight 102.727, kg, Start date: 12/26/12 14:33:00, Stop date: 12/26/12 14:33:00 PO No Longer Active Rajesh 12/26/2012 [facility] sevelamer 2.4 gm, 3 tab, Route : PO, Drug form: TAB, TID, Dosing Weight 102.727, kg, Start date: 12/26/12 13:00:00, Duration: 30 day, Stop date: 01/25/13 9:00:00 PO No Longer Active Rajesh 12/26/2012 [facility] albuterol 0.083% inhalation solution 4.98 mg, 6 mL, Route: NEB, Drug form: SOLN, ONCE, Dosing Weight 102.727, kg, Start date: 12/26/12 9:49:00, Stop date: 12/26/12 9:49:00 NEB No Longer Active Rajesh 12/26/2012 [facility] Kayexalate 30 gm, Route: PO, D rug form: SUSP, ONCE, Dosing Weight 102.727, kg, Start date: 12/26/12 9:46:00, Stop date: 12/26/12 9:46:00 PO No Longer Active Rajesh 12/26/2012 [facility] docusate 100 mg, 1 cap, Route: PO, Drug form: CAP, Q12H, Dosing Weight 102.727, kg, Start date: 12/26/12 9:00:00, Duration: 30 day, Stop date: 01/24/13 21:00:00 PO No Longer Active Esdras 12/26/2012 [facility] Saline Flush 0.9% 5 ml, Route: IVP, Drug Form: INJ, Dosing Weight 102.727, kg, Q12H, Start date: 12/26/12 9:00:00, Duration: 30 day, Stop date: 01/24/13 21:00:00 IVP No Longer Active Esdras 12/26/2012 [facility] pantoprazole 40 mg, Route: IVP , Drug form: INJ, Daily, Dosing Weight 102.727, kg, Priority: Routine, Start date: 12/26/12 9:00:00, Duration: 30 day, Stop date: 01/24/13 9:00:00 IVP No Longer Active 12/26/2012 [facility] Dextrose 50% Syringe 12.5 gm, 25 mL, Route: IVP, Drug Form: INJ, Dosing Weight 102.727, kg, PRN, PRN Blood Glucose Results, Start date: 12/26/12 7:13:00, Duration: 30 day, Stop date: 01/25/13 8:12:00 IVP No Longer Active 01/2013 [facility] glucagon 1 mg, Route: IM, Drug form: PDR/INJ, PRN, Dosing Weight 102.727, kg, PRN Blood Glucose Results, Start date: 12/26/12 7:13:00, Duration: 30 day, Stop date: 01/25/13 8:12:00 IM No Longer Active 12/26/2012 [facility] insulin aspart 4 unit, 0.04 mL , Route: SUB-Q, Drug form: SOLN, TID-Before Meals, Dosing Weight 102.727, kg, PRN Blood Glucose Results, Start date: 12/26/12 7:13:00, Duration: 30 day, Stop date: 01/25/13 7:12:00 SUB-Q No Longer Active 01/2013 [facility] DuoNeb inhalation solution 3 m l, Route: INHALATION, Drug Form: SOLN, Dosing Weight 102.727, kg, PRN, PRN Respiratory Protocol, Start date: 12/26/12 6:21:00, Duration: 30 day, Stop date: 01/25/13 7:20:00 INHALATION No Longer Active 01/2013 [facility] chlorhexidine topical 4% soap 1 appl, Route: BATHE, Q24H, Start date: 12/26/12 4:00:00, Duration: 30 day, Stop date: 01/24/13 4:00:00 BATHE No Longer Active 12/26/2012 [facility] glucagon 1 mg, Route: IM, Drug form: PDR/INJ, PRN, Dosing Weight 102.727, kg, PRN Blood Glucose Results, Start date: 12/26/12 3:55:00, Duration: 30 day, Stop date: 01/25/13 4:54:00 IM No Longer Active [facility]12/26/2012 [facility] Dextrose 50% Syringe 25 gm, 50 mL, Route: IVP, Drug Form: INJ, Dosing Weight 102.727, kg, PRN, PRN Blood Glucose Results, Start date: 12/26/12 3:55:00, Duration: 30 day, Stop date: 01/25/13 4:54:00 [facility] insulin aspart 4 unit, 0.04 mL , Route: SUB-Q, Drug form: SOLN, Bedtime, Dosing Weight 102.727, kg, PRN Blood Glucose Results, Start date: 12/26/12 3:55:00, Duration: 30 day, Stop date: 01/25/13 3:54:00 SUB-Q No Longer Active [facility]01/2013 [facility] morphine Sulfate 4 mg, 2 mL, R oute: IVP, Drug form: INJ, Q3H, Dosing Weight 105.001, kg, PRN Pain Score 7-10, Start date: 12/26/12 3:52:00, Duration: 30 day, Stop date: 01/25/13 3:51:00 IVP No Longer Active [facility]12/26/2012 [facility] ondansetron 4 mg, 2 mL, Route: IVP, Drug form: INJ, Q6H, Dosing Weight 102.727, kg, PRN Nausea & Vomiting, Start date: 12/26/12 3:52:00, Duration: 30 day, Stop date: 01/25/13 3:51:00 IVP No Longer Active [facility]12/26/2012 [facility] ondansetron 4 mg, 2 mL, Route: IVP, Drug form: INJ, Q4H, Dosing Weight 102.727, kg, PRN Nausea & Vomiting, Start date: 12/26/12 3:51:00, Duration: 30 day, Stop date: 01/25/13 3:50:00 IVP No Longer Active [facility]12/26/2012 [facility] albuterol-ipratropium 2.5-0.5 mg inhalation solution 3 ml, Route: NEB, Drug Form: SOLN, Dosing Weight 102.727, kg, PRN, PRN Respiratory Protocol, Start date: 12/26/12 3:51:00, Duration: 30 day, Stop date: 01/25/13 4:50:00 NEB No Longer Active [facility] 12/26/2012 [facility] Saline Flush 0.9% 5 ml, Route: IVP, Drug Form: INJ, Dosing Weight 102.727, kg, PRN, PRN Line Flush, Start date: 12/26/12 3:51:00, Duration: 30 day, Stop date: 01/25/13 4:50:00 IVP No Longer Active [facility] 12/26/2012 [facility] morphine Sulfate 2 mg, 1 mL, R oute: IV, Drug form: INJ, Q2H, Dosing Weight 102.727, kg, PRN as needed for pain, Start date: 12/26/12 3:51:00, Duration: 30 day, Stop date: 01/25/13 3:50:00 IV No Longer Active [facility] 12/26/2012 [facility] acetaminophen 650 mg, 2 tab, R oute: PO, Drug form: TAB, Q6H, Dosing Weight 102.727, kg, PRN Pain, Start date: 12/26/12 3:51:00, Duration: 30 day, Stop date: 01/25/13 3:50:00 PO No Longer Active [facility] 12/26/2012 [facility] albuterol 0.083% inhalation solution 4.98 mg, Route: NEB, Drug form: SOLN, ONCE, Dosing Weight 102.727, kg, Start date: 12/26/12 1:12:00, Stop date: 12/26/12 1:12:00 NEB No Longer Active Rajesh 12/26/2012 [facility] albuterol 0.083% inhalation solution 20 mg, Route: NEB, Continuous, Dosing Weight 102.727, kg, Start date: 12/26/12 1:00:00 NEB No Longer Active [facility] 01/2013 [facility] calcium gluconate 1,000 mg, Ro [place]: IVP, ONCE, Dosing Weight 102.727, kg, Priority: STAT, Start date: 12/26/12 0:33:00, Stop date: 12/26/12 0:33:00 IVP No Longer Active [facility] 12/26/2012 [facility] sodium bicarbonate 50 mEq, Rou te: IVP, ONCE, Dosing Weight 102.727, kg, Priority: STAT, Start date: 12/26/12 0:33:00, Stop date: 12/26/12 0:33:00 IVP No Longer Active [facility] 12/26/2012 [facility] sodium polystyrene sulfonate 1 5 gm, Route: PO, Drug form: SUSP, ONCE, Dosing Weight 102.727, kg, Priority: STAT, Start date: 12/26/12 0:33:00, Stop date: 12/26/12 0:33:00 PO No Longer Active [facility] 12/26/2012 [facility] Insulin regular 10 unit, Route : IVP, ONCE, Dosing Weight 102.727, kg, Priority: STAT, Start date: 12/26/12 0:33:00, Stop date: 12/26/12 0:33:00 IVP No Longer Active [facility] 12/26/2012 [facility] Dextrose 50% Syringe 25 gm, [place]: IVP, Dosing Weight 102.727, kg, ONCE, STAT, Start date: 12/26/12 0:33:00, Stop date: 12/26/12 0:33:00 IVP No Longer Active [facility] 12/26/2012 [facility] Saline Flush 0.9% 5 mL, Route: IVP, Drug Form: INJ, Dosing Weight 102.727, kg, PRN, PRN Line Flush, Start date: 12/26/12 0:33:00, Duration: 30 day, Stop date: 01/25/13 1:32:00 IVP No Longer Active [facility] 12/26/2012 [facility] Ativan 1 mg, Route: IVP, ONCE, Dosing Weight 102.727, kg, Priority: STAT, Start date: 12/25/12 23:59:00, Stop date: 12/25/12 23:59:00 IVP No Longer Active [facility] 01/2013 [facility] Saline Flush 0.9% 5 mL, Route: IVP, Drug Form: INJ, Dosing Weight 102.727, kg, Q8H, PRN Line Flush, Start date: 12/25/12 23:59:00, Duration: 30 day, Stop date: 01/24/13 23:58:00, Administer at least once every 8 hoursAdminister at least once every 8 hours IVP No Longer Active [facility] 12/26/2012 [facility] aspirin 324 mg, Route: PO, ONC E, Dosing Weight 102.727, kg, Priority: STAT, Start date: 12/25/12 23:59:00, Stop date: 12/25/12 23:59:00 PO No Longer Active Leon[facility] 01/2013 [facility] morphine Sulfate 4 mg, 2 mL, R oute: IVP, Drug form: INJ, ONCE, Dosing Weight 105, kg, Priority: STAT, Start date: 12/05/12 8:10:00, Stop date: 12/05/12 8:10:00 IVP No Longer Active [facility] 12/05/2012 [facility] [place] 5/325 oral tablet 1-2 ta b, PO, Q6H, PRN, 30 tab, Pain, Substitution Allowed, Maintenance PO Active [facility] 12/02/2012 [facility] Lyrica 75 mg oral capsule 75 m g, 1 cap, PO, TID, 90 cap, Substitution Allowed, CAP PO Active [facility] 12/02/2012 [facility] Lovenox 30 mg, 0.3 mL, Route: SUB-Q, Drug form: INJ, Q24H, Dosing Weight 105.909, kg, Priority: Within 8 hours, Start date: 12/01/12 22:00:00, Duration: 30 day, Stop date: 12/30/12 22:00:00 SUB-Q No Longer Active [facility] 12/02/2012 [facility] lidocaine 1% 10 mL, Route: INT RADERM, Drug Form: INJ, Dosing Weight 105.909, kg, ONCE, Start date: 12/01/12 15:50:00, Stop date: 12/01/12 15:50:00 INTRADERM No Longer Active [facility] 12/01/2012 [facility] Kenalog-40 80 mg, 2 mL, Route: intra-ARTICULAR, Drug form: INJ, ONCE, Dosing Weight 105.909, kg, Start date: 12/01/12 15:50:00, Stop date: 12/01/12 15:50:00 intra-ARTICULAR No Longer Active [facility] 12/01/2012 [facility] Dilaudid 1 mg, 1 mL, Route: IV , Drug form: SOLN, Q3H, Dosing Weight 105.909, kg, PRN Pain, Start date: 12/01/12 14:38:00, Duration: 30 day, Stop date: 12/31/12 14:37:00 IV No Longer Active [facility] 12/01/2012 [facility] D5W 1/2NS + KCL 20mEq/L 1000ml (Premix) 1000 mL 1,000 mL, Rate: 100 ml/hr, Infuse over: 10 hr, Route: IV, Dosing Weight 105.909 kg, Total Volume: 1,000, Start date: 12/01/12 10:11:00, Duration: 30 day, Stop date: 12/31/12 10:10:00 IV No Longer Active [facility] 12/01/2012 [facility] NS + KCL 20mEq/L 1000ml (Premix) 1000 mL 1,000 mL, Rate: 100 ml/hr, Infuse over: 10 hr, Route: IV, Dosing Weight 105.909 kg, Total Volume: 1,000, Start date: 12/01/12 10:11:00, Duration: 30 day, Stop date: 12/31/12 10:10:00 IV No Longer Active [facility] 12/01/2012 [facility] 1/2 NS 1,000 mL 1,000 mL, Rate : 100 ml/hr, Infuse over: 10 hr, Route: IV, kg, Total Volume: 1,000, Start date: 12/01/12 10:11:00, Duration: 30 day, Stop date: 12/31/12 10:10:00 IV No Longer Active [facility] 12/01/2012 [facility] cefazolin 2 gm, Route: IVPB, O NCE, Dosing Weight 105.909, kg, Start date: 12/01/12 9:53:00, Duration: 1 doses or times, Stop date: 12/01/12 9:53:00 IVPB No Longer Active [facility] 12/01/2012 [facility] nitroglycerin 0.4 mg sublingual tablet 0.4 mg, 1 tab, Route: SL, Drug form: TAB, Q5Min, PRN Chest Pain, Start date: 11/30/12 19:55:00, Duration: 30 day, Stop date: 12/30/12 19:54:00 SL No Longer Active [facility] 12/01/2012 [facility] atropine 0.5 mg, 5 mL, Route: IVP, Drug form: INJ, PRN, PRN Bradycardia, Start date: 11/30/12 19:55:00, Duration: 30 day, Stop date: 12/30/12 19:54:00 IVP No Longer Active [place] 12/01/2012 [facility] Epogen (ESRD) 10,000 unit, 1 m L, Route: SUB-Q, Drug form: INJ, Q-M-W-F, Dosing Weight 105.909, kg, Start date: 11/30/12 17:00:00, Duration: 30 day, Stop date: 12/28/12 17:00:00 SUB-Q No Longer Active [facility] 11/30/2012 [facility] Novolog 70/30 45 unit, 0.45 mL , Route: SUB-Q, Drug form: INJ, Before Dinner, Dosing Weight 102.727, kg, Start date: 11/30/12 16:30:00, Duration: 30 day, Stop date: 12/29/12 16:30:00 SUB-Q No Longer Active [facility] 11/30/2012 [facility] NovoLog Mix 70/30 FlexPen 26 u nit, 0.26 mL, Route: SUB- Q, Drug form: INJ, Before Lunch, Dosing Weight 102.727, kg, Start date: 11/30/12 11:30:00, Duration: 30 day, Stop date: 12/29/12 11:30:00 SUB-Q No Longer Active [facility] 11/30/2012 [facility] morphine Sulfate 4 mg, 2 mL, R oute: IVP, Drug form: INJ, Q3H, Dosing Weight 105.909, kg, PRN Severe Pain, Start date: 11/30/12 10:35:00, Duration: 30 day, Stop date: 12/30/12 10:34:00 IVP No Longer Active [place] 11/30/2012 [facility] Lyrica 75 mg, 1 cap, Route: PO , Drug form: CAP, BID, Dosing Weight 102.727, kg, Start date: 11/30/12 9:00:00, Duration: 30 day, Stop date: 12/29/12 17:00:00 PO No Longer Active [place] 11/30/2012 [facility] ropinirole 0.25 mg, 1 tab, Rou te: PO, Drug form: TAB, TID, Dosing Weight 102.727, kg, Start date: 11/30/12 9:00:00, Duration: 30 day, Stop date: 12/29/12 17:00:00 PO No Longer Active [place] 11/30/2012 [facility] oxybutynin 5 mg, 1 tab, Route: PO, Drug form: TAB, TID, Dosing Weight 102.727, kg, Start date: 11/30/12 9:00:00, Duration: 30 day, Stop date: 12/29/12 17:00:00 PO No Longer Active [place] 11/30/2012 [facility] insulin detemir 16 unit, 0.16 mL, Route: SUB-Q, Drug form: INJ, QAM, Dosing Weight 102.727, kg, Start date: 11/30/12 9:00:00, Duration: 30 day, Stop date: 12/29/12 9:00:00 SUB-Q No Longer Active [place] 11/30/2012 [facility] gabapentin 100 mg oral capsule 100 mg, 1 cap, Route: PO, Drug form: CAP, Daily, Dosing Weight 102.727, kg, Start date: 11/30/12 9:00:00, Duration: 30 day, Stop date: 12/29/12 9:00:00 PO No Longer Active [place] 11/30/2012 [facility] calcium carbonate 1,000 mg, 2 tab, Route: CHEW, Drug form: CHEWTAB, TID, Dosing Weight 102.727, kg, Start date: 11/30/12 9:00:00, Duration: 30 day, Stop date: 12/29/12 17:00:00 CHEW No Longer Active [place] 11/30/2012 [facility] docusate 100 mg, 1 cap, Route: PO, Drug form: CAP, BID, Dosing Weight 102.727, kg, Start date: 11/30/12 9:00:00, Duration: 30 day, Stop date: 12/29/12 17:00:00 PO No Longer Active [place] 11/30/2012 [facility] Renvela 2,400 mg, 3 tab, Route : PO, Drug form: TAB, TID- Meals, Dosing Weight 102.727, kg, Start date: 11/30/12 8:00:00, Duration: 30 day, Stop date: 12/29/12 17:00:00 PO No Longer Active [place] 11/30/2012 [facility] Novolog 70/30 40 unit, 0.4 mL, Route: SUB-Q, Drug form: INJ, Before Breakfast, Dosing Weight 102.727, kg, Start date: 11/30/12 7:30:00, Duration: 30 day, Stop date: 12/29/12 7:30:00 SUB-Q No Longer Active [facility] 11/30/2012 [facility] simvastatin 20 mg, 1 tab, Rout e: PO, Drug form: TAB, Bedtime, Dosing Weight 102.727, kg, Start date: 11/29/12 21:00:00, Duration: 30 day, Stop date: 12/28/12 21:00:00 PO No Longer Active [facility] 11/30/2012 [facility] Levemir 70 unit, 0.7 mL, Route : SUB-Q, Drug form: INJ, Bedtime, Dosing Weight 102.727, kg, Start date: 11/29/12 21:00:00, Duration: 30 day, Stop date: 12/28/12 21:00:00 SUB-Q No Longer Active [facility] 11/30/2012 [facility] heparin 5,000 unit, 1 mL, Rout e: SUB-Q, Drug form: INJ, Q12H, Dosing Weight 102.727, kg, Start date: 11/29/12 21:00:00, Duration: 30 day, Stop date: 12/29/12 9:00:00 SUB-Q No Longer Active [facility] 11/30/2012 [facility] amLODipine 5 mg, 1 tab, Route: PO, Drug form: TAB, Q-Ik-Ks-Sa-Higgins, Dosing Weight 102.727, kg, Start date: 11/29/12 18:29:00, Duration: 30 day, Stop date: 12/29/12 9:00:00 PO No Longer Active [facility] 11/30/2012 [facility] furosemide 40 mg oral tablet 4 0 mg, 1 tab, Route: PO, Drug form: TAB, F-Pq-Wv-Sa-Higgins, Dosing Weight 102.727, kg, Start date: 11/29/12 18:29:00, Duration: 30 day, Stop date: 12/29/12 9:00:00 PO No Longer Active Rajesh 11/30/2012 [facility] carvedilol 50 mg, 4 tab, Route : PO, Drug form: TAB, Z-Yf-Oa-Sa-Higgins, Dosing Weight 102.727, kg, Start date: 11/29/12 18:29:00, Duration: 30 day, Stop date: 12/29/12 17:00:00 PO No Longer Active [facility] 11/30/2012 [facility] temazepam 15 mg, 1 cap, Route: PO, Drug form: CAP, Bedtime, Dosing Weight 102.727, kg, PRN Insomnia, Start date: 11/29/12 18:28:00, Duration: 30 day, Stop date: 12/29/12 18:27:00 PO No Longer Active [place] 11/30/2012 [facility] ondansetron 4 mg, 2 mL, Route: IVP, Drug form: INJ, Q6H, Dosing Weight 102.727, kg, PRN Nausea & Vomiting, Start date: 11/29/12 18:28:00, Duration: 30 day, Stop date: 12/29/12 18:27:00 IVP No Longer Active [place] 11/30/2012 [facility] acetaminophen-hydrocodone 325 mg-5 mg oral tablet 2 tab, Route: PO, Drug Form: TAB, Dosing Weight 102.727, kg, Q4H, PRN Pain Score 4-6, Start date: 11/29/12 18:28:00, Duration: 30 day, Stop date: 12/29/12 18:27:00 PO No Longer Active [place] [address] [place] [address] morphine Sulfate 2 mg, 1 mL, R oute: IVP, Drug form: INJ, Q3H, Dosing Weight 102.727, kg, PRN Pain Score 4-6, Start date: 11/29/12 18:28:00, Duration: 30 day, Stop date: 12/29/12 18:27:00 IVP No Longer Active [place] 11/30/2012 [facility] acetaminophen 650 mg, 2 tab, R oute: PO, Drug form: TAB, Q4H, Dosing Weight 102.727, kg, PRN Pain/Fever, Start date: 11/29/12 18:28:00, Duration: 30 day, Stop date: 12/29/12 18:27:00 PO No Longer Active [place] 11/30/2012 [facility] Tums Ultra 1000 mg oral tablet, chewable 1,000 mg, 1 tab, CHEW, TID, Substitution Allowed CHEW Active [facility] 11/29/2012 [facility] Vitamin D 50,000 intl units oral capsule 50,000 IntlUnit, 1 cap, PO, QSat, Substitution Allowed PO Active 11/29/2012 [facility] acetaminophen-hydrocodone 325 mg-5 mg oral tablet 1 tab, PO, Q6H, PRN, as needed for pain, Substitution Allowed, Maintenance PO No Longer Active 11/29/2012 [facility] promethazine 12.5 mg oral tablet 12.5 mg, 1 tab, PO, Q6H, PRN, as needed for nausea/vomiting, Substitution Allowed PO Active 11/29/2012 [facility] gabapentin 100 mg oral capsule 100 mg, 1 cap, PO, Daily, Substitution Allowed PO No Longer Active [facility] 11/29/2012 [facility] tramadol 25 mg, 0.5 tab, Route : PO, Drug form: TAB, ONCE, Dosing Weight 102.727, kg, Priority: STAT, Start date: 11/29/12 14:52:00, Stop date: 11/29/12 14:52:00 PO No Longer Active [facility] 11/29/2012 [facility] Tylenol 1,000 mg, Route: PO, O NCE, Dosing Weight 102.727, kg, Priority: STAT, Start date: 11/29/12 12:47:00, Stop date: 11/29/12 12:47:00 PO No Longer Active [facility] 11/29/2012 [facility] Kayexalate 30 gm, Route: PO, D rug form: SUSP, ONCE, Dosing Weight 102.727, kg, Priority: STAT, Start date: 11/29/12 11:58:00, Stop date: 11/29/12 11:58:00 PO No Longer Active [facility] 11/29/2012 [facility] sodium bicarbonate 50 mEq, 50 mL, Route: INJ, Drug form: INJ, ONCE, Dosing Weight 102.727, kg, Priority: STAT, Start date: 11/29/12 11:57:00, Stop date: 11/29/12 11:57:00 INJ No Longer Active [facility] 11/29/2012 [facility] DuoNeb inhalation solution 3 m L, Route: NEB, Drug Form: SOLN, Dosing Weight 102.727, kg, ONCE, Start date: 11/29/12 11:35:00, Stop date: 11/29/12 11:35:00 NEB No Longer Active [facility] 11/29/2012 [facility] Valium 5 mg, 1 mL, Route: IVP, Drug form: INJ, ONCE, Dosing Weight 102.727, kg, Priority: STAT, Start date: 11/29/12 11:07:00, Stop date: 11/29/12 11:07:00 IVP No Longer Active [facility] 11/29/2012 [facility] Saline Flush 0.9% 5 ml, Route: IVP, Drug Form: INJ, Dosing Weight 102.727, kg, PRN, PRN Line Flush, Start date: 11/29/12 11:06:00, Duration: 30 day, Stop date: 12/29/12 11:05:00 IVP No Longer Active [facility] 11/29/2012 [facility] ciprofloxacin 500 mg oral tablet 500 mg, 1 tab, PO, Q24H, 5 tab, Substitution Allowed, TAB PO Active [facility] 09/10/2012 [facility] [place] 5/325 oral tablet 1-2 ta b, PO, Q6H, PRN, 30 tab, Pain, Substitution Allowed, Maintenance PO Active [facility] 09/10/2012 [facility] methocarbamol 750 mg oral tablet 750 mg, 1 tab, PO, TID, 30 tab, Substitution Allowed, TAB PO Active [facility] 09/10/2012 [facility] Coreg 25 mg, 2 tab, Route: PO, Drug form: TAB, Q12H, Dosing Weight 100, kg, Start date: 09/09/12 21:00:00, Duration: 30 day, Stop date: 10/09/12 9:00:00 PO No Longer Active [facility] 09/10/2012 [facility] lidocaine 1% 5 mL, Route: INTR ADERM, Drug Form: INJ, Dosing Weight 100, kg, ONCE, STAT, Start date: 09/09/12 15:55:00, Stop date: 09/09/12 15:55:00 INTRADERM Active [facility] 09/09/2012 [facility] Kenalog-40 40 mg, 1 mL, Route: INTRADERM, Drug form: INJ, ONCE, Dosing Weight 100, kg, Priority: STAT, Start date: 09/09/12 15:54:00, Stop date: 09/09/12 15:54:00 INTRADERM Active [facility] 09/09/2012 [facility] Dilaudid 1 mg, 1 mL, Route: IV , Drug form: SOLN, Q3H, Dosing Weight 100, kg, PRN Pain Score 4-6, Start date: 09/09/12 10:59:00, Duration: 30 day, Stop date: 10/09/12 10:58:00 IV No Longer Active [place] 09/09/2012 [facility] Levemir 16 unit, 0.16 mL, Rout e: SUB-Q, Drug form: INJ, QAM, Dosing Weight 100, kg, Start date: 09/09/12 9:00:00, Duration: 30 day, Stop date: 10/08/12 9:00:00 SUB-Q No Longer Active [facility] 09/09/2012 [facility] Novolog 70/30 40 unit, 0.4 mL, Route: SUB-Q, Drug form: INJ, Breakfast, Dosing Weight 100, kg, Start date: 09/09/12 8:00:00, Duration: 30 day, Stop date: 10/08/12 8:00:00 SUB-Q No Longer Active [facility] 09/09/2012 [facility] Rocephin 1 gm, Route: IV, Q24H , Dosing Weight 100, kg, Start date: 09/09/12 0:00:00, Duration: 30 day, Stop date: 10/08/12 0:00:00 IV No Longer Active [place] 012 [facility] Levemir 70 unit, 0.7 mL, Route : SUB-Q, Drug form: INJ, Bedtime, Dosing Weight 100, kg, Start date: 09/08/12 21:00:00, Duration: 30 day, Stop date: 10/07/12 21:00:00 SUB-Q No Longer Active [facility] 09/09/2012 [facility] carvedilol 25 mg, 2 tab, Route : PO, Drug form: TAB, Bedtime, Dosing Weight 100, kg, Start date: 09/08/12 21:00:00, Duration: 30 day, Stop date: 10/07/12 21:00:00 PO No Longer Active [facility] 09/09/2012 [facility] Novolog 70/30 45 unit, 0.45 mL , Route: SUB-Q, Drug form: INJ, Dinner, Dosing Weight 100, kg, Start date: 09/08/12 17:00:00, Duration: 30 day, Stop date: 10/07/12 17:00:00 SUB-Q No Longer Active [facility] 09/08/2012 [facility] NovoLog Mix 70/30 FlexPen 26 u nit, 0.26 mL, Route: SUB- Q, Drug form: INJ, Lunch, Dosing Weight 100, kg, Start date: 09/08/12 12:00:00, Duration: 30 day, Stop date: 10/07/12 12:00:00 SUB-Q No Longer Active [facility] 09/08/2012 [facility] [place] 5/325 oral tablet 1 tab, Route: PO, Drug Form: TAB, Dosing Weight 100, kg, Q6H, PRN Pain, Start date: 09/08/12 11:15:00, Duration: 30 day, Stop date: 10/08/12 11:14:00 PO No Longer Active Rajesh 09/08/2012 [facility] Rocephin + Sodium Chloride 0.9% IV 100 mL 1 gm, Route: IVPB, Drug form: PDR/INJ, [id number], Dosing Weight 100, kg, Start date: 09/08/12 10:00:00, Duration: 30 day, Stop date: 10/07/12 10:00:00 IVPB No Longer Active [place] 09/08/2012 [facility] Epogen (ESRD) 3,000 unit, 1 mL , Route: SUB-Q, Drug form: INJ, Q-M-W-F, Dosing Weight 100, kg, Start date: 09/07/12 17:00:00, Duration: 30 day, Stop date: 10/05/12 17:00:00 SUB-Q No Longer Active Rajesh 09/07/2012 [facility] epoetin shilpi 2,000 unit, 1 mL, Route: SUB-Q, Drug form: INJ, Q-M-W-F, Start date: 09/07/12 17:00:00, Duration: 30 day, Stop date: 10/05/12 17:00:00 SUB-Q No Longer Active Rajesh 09/07/2012 [facility] famotidine 20 mg, 1 tab, Route : PO, Drug form: TAB, Daily, Dosing Weight 100, kg, Start date: 09/07/12 9:00:00, Duration: 30 day, Stop date: 10/06/12 9:00:00 PO No Longer Active [facility] 09/07/2012 [facility] Novolog 70/30 40 unit, 0.4 mL, Route: SUB-Q, Drug form: INJ, QAM, Dosing Weight 100, kg, Start date: 09/07/12 8:50:00, Duration: 30 day, Stop date: 10/06/12 8:50:00 SUB-Q No Longer Active [place] 09/07/2012 [facility] Lyrica 100 mg, 2 cap, Route: P O, Drug form: CAP, Q8H, Dosing Weight 100, kg, Start date: 09/07/12 0:00:00, Duration: 30 day, Stop date: 10/06/12 16:00:00 PO No Longer Active [place] 09/07/2012 [facility] simvastatin 40 mg, 1 tab, Rout e: PO, Drug form: TAB, Bedtime, Dosing Weight 100, kg, Start date: 09/06/12 21:00:00, Duration: 30 day, Stop date: 10/05/12 21:00:00 PO No Longer Active [place] 09/07/2012 [facility] Lyrica 75 mg, 1 cap, Route: PO , Drug form: CAP, Q12H, Dosing Weight 100, kg, Start date: 09/06/12 21:00:00, Duration: 30 day, Stop date: 10/06/12 9:00:00 PO No Longer Active [place] 09/07/2012 [facility] Levemir 70 unit, 0.7 mL, Route : SUB-Q, Drug form: INJ, Bedtime, Dosing Weight 100, kg, Start date: 09/06/12 21:00:00, Duration: 30 day, Stop date: 10/05/12 21:00:00 SUB-Q No Longer Active [place] 09/07/2012 [facility] gabapentin 100 mg oral capsule 100 mg, 1 cap, Route: PO, Drug form: CAP, Q12H, Dosing Weight 100, kg, Start date: 09/06/12 21:00:00, Duration: 30 day, Stop date: 10/06/12 9:00:00 PO No Longer Active [place] 09/07/2012 [facility] carvedilol 50 mg, 4 tab, Route : PO, Drug form: TAB, Bedtime, Dosing Weight 100, kg, Start date: 09/06/12 21:00:00, Duration: 30 day, Stop date: 10/05/12 21:00:00 PO No Longer Active [facility] 09/07/2012 [facility] Novolin R 10 unit, 0.1 mL, Rou te: IV, Drug form: INJ, ONCE, Start date: 09/06/12 20:41:00, Stop date: 09/06/12 20:41:00 IV No Longer Active [facility] 09/07/2012 [facility] Novolin R 100 unit + Sodium Chloride 0.9% IV 99 mL 99 mL, Rate: Titrate per Insulin drip protocol, Route: IV, kg, Total Volume: 100, Start date: 09/06/12 20:27:00, Stop date: 10/06/12 20:26:00 IV No Longer Active [facility] 09/07/2012 [facility] NovoLog FlexPen 10 unit, 0.1 m L, Route: SUB-Q, Drug form: SOLN, ONCE, Start date: 09/06/12 20:26:00, Stop date: 09/06/12 20:26:00 SUB-Q No Longer Active [facility] 09/07/2012 [facility] insulin aspart 20 unit, 0.2 mL , Route: SUB-Q, Drug form: SOLN, ONCE, Dosing Weight 100, kg, Start date: 09/06/12 19:01:00, Stop date: 09/06/12 19:01:00 SUB-Q No Longer Active [facility] 09/07/2012 [facility] oxybutynin 5 mg, 1 tab, Route: PO, Drug form: TAB, BID, Dosing Weight 100, kg, Start date: 09/06/12 17:00:00, Duration: 30 day, Stop date: 10/06/12 9:00:00 PO No Longer Active [facility] 09/06/2012 [facility] Novolog 70/30 45 unit, 0.45 mL , Route: SUB-Q, Drug form: INJ, Dinner, Dosing Weight 100, kg, Start date: 09/06/12 17:00:00, Duration: 30 day, Stop date: 10/05/12 17:00:00 SUB-Q No Longer Active [facility] 09/06/2012 [facility] NovoLog FlexPen 20 unit, 0.2 m L, Route: SUB-Q, Drug form: SOLN, ONCE, Start date: 09/06/12 16:31:00, Stop date: 09/06/12 16:31:00 SUB-Q No Longer Active [facility] 09/06 [facility] insulin aspart 15 unit, 0.15 m L, Route: SUB-Q, Drug form: SOLN, TID-Before Meals, Dosing Weight 100, kg, PRN Blood Glucose Results, Start date: 09/06/12 16:02:00, Duration: 30 day, Stop date: 10/06/12 16:01:00 SUB-Q No Longer Active [facility] [address] [place] [address] Dextrose 50% Syringe 12.5 gm, 25 mL, Route: IVP, Drug Form: INJ, Dosing Weight 100, kg, PRN, PRN Blood Glucose Results, Start date: 09/06/12 16:02:00, Duration: 30 day, Stop date: 10/06/12 16:01:00 IVP No Longer Active [facility] 09/06/2012 [facility] glucagon 1 mg, Route: IM, Drug form: PDR/INJ, PRN, Dosing Weight 100, kg, PRN Blood Glucose Results, Start date: 09/06/12 16:02:00, Duration: 30 day, Stop date: 10/06/12 16:01:00 IM No Longer Active [facility] 09/06/2012 [facility] ropinirole 0.25 mg, 1 tab, Rou te: PO, Drug form: TAB, Q8H, Dosing Weight 100, kg, Start date: 09/06/12 16:00:00, Duration: 30 day, Stop date: 10/06/12 8:00:00 PO No Longer Active [facility] 09/06/2012 [facility] insulin detemir 16 unit, 0.16 mL, Route: SUB-Q, Drug form: INJ, Daily, Dosing Weight 100, kg, Start date: 09/06/12 13:00:00, Duration: 30 day, Stop date: 10/06/12 9:00:00 SUB-Q No Longer Active [facility] 09/06/2012 [facility] furosemide 40 mg oral tablet 4 0 mg, 1 tab, Route: PO, Drug form: TAB, R-Kw-Jn-Sa-Higgins, Dosing Weight 100, kg, Start date: 09/06/12 12:14:00, Duration: 30 day, Stop date: 10/06/12 9:00:00 PO No Longer Active Mena 09/06/2012 [facility] carvedilol 50 mg, 4 tab, Route : PO, Drug form: TAB, W-Mj-Cl-Sa-Higgins, Dosing Weight 100, kg, Start date: 09/06/12 12:13:00, Duration: 30 day, Stop date: 10/06/12 9:00:00 PO No Longer Active Mena 09/06/2012 [facility] amLODipine 5 mg, 1 tab, Route: PO, Drug form: TAB, O-Lg-Ij-Sa-Higgins, Dosing Weight 100, kg, Start date: 09/06/12 12:10:00, Duration: 30 day, Stop date: 10/06/12 9:00:00 PO No Longer Active [place] 09/06/2012 [facility] Renvela 2,400 mg, 3 tab, Route : PO, Drug form: TAB, TID- Meals, Dosing Weight 100, kg, Start date: 09/06/12 12:00:00, Duration: 30 day, Stop date: 10/06/12 8:00:00 PO No Longer Active [facility] 09/06/2012 [facility] NovoLog Mix 70/30 FlexPen 26 u nit, 0.26 mL, Route: SUB- Q, Drug form: INJ, Lunch, Dosing Weight 100, kg, Start date: 09/06/12 12:00:00, Duration: 30 day, Stop date: 10/05/12 12:00:00 SUB-Q No Longer Active [facility] 09/06/2012 [facility] Robaxin 750 mg, 1 tab, Route: PO, Drug form: TAB, TID, Dosing Weight 100, kg, Start date: 09/06/12 9:00:00, Duration: 30 day, Stop date: 10/05/12 17:00:00 PO No Longer Active [facility] 09/06/2012 [facility] docusate 100 mg, 1 cap, Route: PO, Drug form: CAP, BID, Dosing Weight 100, kg, Start date: 09/06/12 9:00:00, Duration: 30 day, Stop date: 10/05/12 17:00:00 PO No Longer Active [place] 09/06/2012 [facility] Kayexalate 30 gm, 120 mL, Rout e: PO, Drug form: SUSP, ONCE, Dosing Weight 100, kg, Start date: 09/06/12 8:52:00, Stop date: 09/06/12 8:52:00 PO No Longer Active Mena 09/06/2012 [facility] acetaminophen 650 mg, 2 tab, R oute: PO, Drug form: TAB, Q4H, Dosing Weight 100, kg, PRN Pain/Fever, Start date: 09/05/12 23:14:00, Duration: 30 day, Stop date: 10/05/12 23:13:00 PO No Longer Active [facility] 09/06/2012 [facility] Zofran 4 mg, 2 mL, Route: IV, Drug form: INJ, Q4H, Dosing Weight 100, kg, PRN Nausea, Start date: 09/05/12 23:13:00, Duration: 30 day, Stop date: 10/05/12 23:12:00 IV No Longer Active [facility] 09/06/2012 [facility] morphine Sulfate 4 mg, 2 mL, R oute: IVP, Drug form: INJ, Q3H, Dosing Weight 100, kg, PRN Pain, Start date: 09/05/12 23:11:00, Duration: 30 day, Stop date: 10/05/12 23:10:00 IVP No Longer Active [facility] 09/06/2012 [facility] heparin 5,000 unit, 1 mL, Rout e: SUB-Q, Drug form: INJ, Q12H, Dosing Weight 100, kg, Start date: 09/05/12 21:00:00, Duration: 30 day, Stop date: 10/05/12 9:00:00 SUB-Q No Longer Active [facility] 09/06/2012 [facility] SoluMedrol 40 mg, 1 mL, Route: IVP, Drug form: INJ, Q12H, Dosing Weight 100, kg, Start date: 09/05/12 21:00:00, Duration: 24 hr, Stop date: 09/06/12 9:00:00 IVP No Longer Active [facility] 09/06/2012 [facility] carvedilol 25 mg oral tablet 5 0 mg, 2 tab, PO, , 180 tab, Substitution Allowed, TAB PO Active [facility] 09/05/2012 [facility] Robaxin + Sodium Chloride 0.9% IV 100 mL 1,000 mg, 10 mL, Route: IV, Drug form: INJ, ONCE, Dosing Weight 100, kg, Start date: 09/05/12 17:31:00, Stop date: 09/05/12 17:31:00 IV No Longer Active [facility] 09/05/2012 [facility] Ativan 1 mg, 0.5 mL, Route: IV P, Drug form: INJ, ONCALL, Dosing Weight 100, kg, Start date: 09/05/12 17:30:00, Duration: 1 doses or times, prior to MRI IVP No Longer Active [facility] 09/05/2012 [facility] insulin aspart 3 unit, 0.03 mL , Route: SUB-Q, Drug form: SOLN, TID-Before Meals, Dosing Weight 100, kg, PRN Blood Glucose Results, Start date: 09/05/12 17:29:00, Duration: 30 day, Stop date: 10/05/12 17:28:00 SUB-Q No Longer Active [facility] [address] [place] [address] Dextrose 50% Syringe 25 gm, 50 mL, Route: IVP, Drug Form: INJ, Dosing Weight 100, kg, PRN, PRN Blood Glucose Results, Start date: 09/05/12 17:29:00, Duration: 30 day, Stop date: 10/05/12 17:28:00 IVP No Longer Active [facility] 09/05/2012 [facility] glucagon 1 mg, Route: IM, Drug form: PDR/INJ, PRN, Dosing Weight 100, kg, PRN Blood Glucose Results, Start date: 09/05/12 17:29:00, Duration: 30 day, Stop date: 10/05/12 17:28:00 IM No Longer Active [facility] 09/05/2012 [facility] acetaminophen-hydrocodone 325 mg-5 mg oral tablet 1 tab, Route: PO, Drug Form: TAB, Dosing Weight 100, kg, Q4H, PRN Pain Score 1-3, Start date: 09/05/12 17:26:00, Duration: 30 day, Stop date: 10/05/12 17:25:00 PO No Longer Active [facility] [address] [place] [address] acetaminophen 650 mg, 2 tab, R oute: PO, Drug form: TAB, Q4H, Dosing Weight 100, kg, PRN Pain/Fever, Start date: 09/05/12 17:26:00, Duration: 30 day, Stop date: 10/05/12 17:25:00 PO No Longer Active [facility] 09/05/2012 [facility] ondansetron 4 mg, 2 mL, Route: IVP, Drug form: INJ, Q6H, Dosing Weight 100, kg, PRN Nausea & Vomiting, Start date: 09/05/12 17:26:00, Duration: 30 day, Stop date: 10/05/12 17:25:00 IVP No Longer Active [facility] 09/05/2012 [facility] morphine Sulfate 2 mg, 1 mL, R oute: IVP, Drug form: INJ, Q3H, Dosing Weight 100, kg, PRN Pain Score 4-6, Start date: 09/05/12 17:26:00, Duration: 30 day, Stop date: 10/05/12 17:25:00 IVP No Longer Active [facility] 09/05/2012 [facility] temazepam 15 mg, 1 cap, Route: PO, Drug form: CAP, Bedtime, Dosing Weight 100, kg, PRN Insomnia, Start date: 09/05/12 17:26:00, Duration: 30 day, Stop date: 10/05/12 17:25:00 PO No Longer Active [facility] 09/05/2012 [facility] ALPRAZOLam 0.25 mg, 1 tab, Rou te: PO, Drug form: TAB, Q8H, Dosing Weight 100, kg, PRN Anxiety, Start date: 09/05/12 17:26:00, Duration: 30 day, Stop date: 10/05/12 17:25:00 PO No Longer Active [facility] 09/05/2012 [facility] ondansetron 4 mg, 2 mL, Route: IVP, Drug form: INJ, ONCE, Dosing Weight 100, kg, Priority: STAT, Start date: 09/05/12 16:13:00, Stop date: 09/05/12 16:13:00 IVP No Longer Active [place] 09/05/2012 [facility] morphine Sulfate 4 mg, 2 mL, R oute: IVP, Drug form: INJ, ONCE, Dosing Weight 100, kg, Priority: STAT, Start date: 09/05/12 16:13:00, Stop date: 09/05/12 16:13:00 IVP No Longer Active [place] 09/05/2012 [facility] cyclobenzaprine 10 mg, 1 tab, Route: PO, Drug form: TAB, ONCE, Dosing Weight 100, kg, Priority: STAT, Start date: 09/05/12 14:40:00, Stop date: 09/05/12 14:40:00 PO No Longer Active [place] 09/05/2012 [facility] morphine Sulfate 4 mg, 2 mL, R oute: IVP, Drug form: INJ, ONCE, Dosing Weight 100, kg, Priority: STAT, Start date: 09/05/12 14:40:00, Stop date: 09/05/12 14:40:00 IVP No Longer Active [place] 09/05/2012 [facility] Zyvox 600 mg, 1 tab, Route: PO , Drug form: TAB, [id number], Dosing Weight 115.909, kg, Start date: 07/11/12 17:00:00, Duration: 30 day, Stop date: 08/10/12 5:00:00 PO No Longer Active Mougouris 07/11/2012 [facility] Zyvox 600 mg oral tablet 600 m g, 1 tab, PO, [id number], 20 tab, Substitution Allowed, TAB PO Active Moug ouris 07/11/2012 [facility] Renvela 4 gm, 5 tab, Route: PO , Drug form: TAB, TID- Meals, Dosing Weight 115.909, kg, Start date: 07/07/12 17:00:00, Duration: 30 day, Stop date: 08/06/12 12:00:00 PO No Longer Active Rajesh 07/07/2012 [facility] cefepime + Sodium Chloride 0.9% IV 100 mL 1 gm, Route: IVPB, [id number], Dosing Weight 115.909, kg, (CrCl 10 - 29 ml/min), Start date: 07/07/12 15:00:00, Duration: 30 day, Stop date: 08/05/12 15:00:00 IVPB No Longer Active Sarvat 07/07/2012 [facility] Epogen (ESRD) 12,000 unit, 3 m L, Route: SUB-Q, Drug form: INJ, Q-M-W-F, Dosing Weight 115.909, kg, Start date: 07/06/12 17:00:00, Duration: 30 day, Stop date: 08/03/12 17:00:00 SUB-Q No Longer Active Mena 07/06/2012 [facility] Zyvox 600 mg, 300 mL, Route: I VPB, Drug form: SOLN, [id number], Dosing Weight 115.909, kg, Start date: 07/05/12 15:00:00, Duration: 30 day, Stop date: 08/04/12 3:00:00 IVPB No Longer Active Cardenas 07/05/2012 [facility] phenol topical 1.4% spray 1 sp ray, Route: PO, PRN, Drug form: SPRY PRN Sore Throat, Start date: 07/05/12 10:52:00, Duration: 30 day, Stop date: 08/04/12 10:51:00 PO No Longer Active [place] 07/05/2012 [facility] Cepacol Dual Relief Sore Throat Mint 5% topical spray 1 spray, Route: TOP, Dosing Weight 115.909, kg, PRN, PRN Sore Throat, Start date: 07/05/12 10:47:00, Duration: 30 day, Stop date: 08/04/12 10:46:00 TOP No Longer Active [place] 07/05/2012 [facility] Ativan 2 mg, 1 mL, Route: IVP, Drug form: INJ, ONCE, Dosing Weight 115.909, kg, PRN Anxiety, Start date: 07/04/12 18:25:00, 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 IVP No Longer Active Sarvat 07/04/2012 [facility] Ativan 2 mg, 1 mL, Route: IVP, Drug form: INJ, ONCE, Dosing Weight 115.909, kg, PRN Anxiety, Start date: 07/04/12 11:36:00 IVP No Longer Active Sarvat 06/25 [facility] MiraLax 17 gm, 1 pkt, Route: P O, Drug form: PWDR, Daily, PRN Constipation, Start date: 07/03/12 19:58:00, Duration: 30 day, Stop date: 08/02/12 19:57:00 PO No Longer Active [place] 07/04/2012 [facility] Cipro 200 mg, 100 mL, Route: I VPB, Drug form: INJ, [id number], Dosing Weight 115.909, kg, Start date: 07/03/12 18:00:00, Duration: 30 day, Stop date: 08/02/12 6:00:00 IVPB No Longer Active [facility] 07/03/2012 [facility] cefepime + Sodium Chloride 0.9% IV 100 mL 1 gm, Route: IVPB, [id number], Dosing Weight 115.909, kg, Start date: 07/03/12 18:00:00, Duration: 30 day, Stop date: 08/01/12 18:00:00 IVPB No Longer Active [facility] 07/03/2012 [facility] Insulin regular 8 unit, 0.08 m L, Route: IV, Drug form: INJ, ONCE, Dosing Weight 115.909, kg, Start date: 07/03/12 14:20:00, Stop date: 07/03/12 14:20:00 IV No Longer Active [facility] 07/03/2012 [facility] d50 syringe 1 amp, Route: IV, Drug Form: INJ, Dosing Weight 115.909, kg, ONCE, Start date: 07/03/12 14:20:00, Stop date: 07/03/12 14:20:00 IV No Longer Active Mena 07/03/2012 [facility] albuterol 0.083% inhalation solution 4.98 mg, 6 mL, Route: NEB, Drug form: SOLN, ONCE, Dosing Weight 115.909, kg, Start date: 07/03/12 14:20:00, Stop date: 07/03/12 14:20:00 NEB No Longer Active Rajesh 07/03/2012 [facility] Kayexalate 30 gm, 120 mL, Rout e: PO, Drug form: SUSP, ONCE, Start date: 07/03/12 10:34:00, Stop date: 07/03/12 10:34:00 PO No Longer Active Mougouris 07/03/2012 [facility] Ativan 2 mg, 1 mL, Route: IV, Drug form: INJ, ONCALL, Start date: 07/02/12 20:00:00, Duration: 1 doses or times IV No Longer Active Majmundar 07/03/2012 [facility] Renvela 3,200 mg, 4 tab, Route : PO, Drug form: TAB, TID- Meals, Dosing Weight 115.909, kg, Start date: 07/02/12 12:30:00, Duration: 30 day, Stop date: 08/01/12 12:00:00 PO No Longer Active Rajesh 07/02/2012 [facility] Xanax 0.25 mg oral tablet 0.25 mg, 1 tab, Route: PO, Drug form: TAB, TID, Dosing Weight 115.909, kg, PRN Anxiety, Start date: 07/02/12 12:14:00, Duration: 30 day, Stop date: 08/01/12 12:13:00 PO No Longer Active Rajesh 07/02/2012 [facility] acetaminophen 325 mg oral tablet 2 tab, Route: PO, Q4H, Dosing Weight 115.909, kg, Start date: 07/02/12 12:00:00, Duration: 30 day, Stop date: 08/01/12 8:00:00 PO No Longer Active Jamshid 07/02/2012 [facility] acetaminophen 325 mg oral tablet 650 mg, 2 tab, Route: PO, Drug form: TAB, PRN, Dosing Weight 115.909, kg, PRN as needed for pain, Start date: 07/02/12 11:38:00, Stop date: 08/01/12 11:37:00 PO No Longer Active Jamshid 07/02/2012 [facility] docusate sodium 100 mg oral capsule 100 mg, 1 cap, Route: PO, Drug form: CAP, BID, Dosing Weight 115.909, kg, PRN Constipation, Start date: 07/02/12 11:21:00, Duration: 30 day, Stop date: 08/01/12 11:20:00 PO No Longer Active Jamshid 07/02/2012 [facility] Novolog 70/30 40 unit, 0.4 mL, Route: SUB-Q, Drug form: INJ, Before Breakfast, Dosing Weight 115.909, kg, Start date: 07/02/12 7:50:00, Duration: 30 day, Stop date: 07/31/12 7:50:00 SUB-Q No Longer Active Rajesh 07/02/2012 [facility] ceftriaxone + Sodium Chloride 0.9% IV 100 mL 1 gm, Route: IVPB, [id number], Dosing Weight 115.909, kg, Start date: 07/02/12 0:00:00, Duration: 30 day, Stop date: 07/31/12 0:00:00 IVPB No Longer Active Tyronevamarcelo 07/02/2012 [facility] simvastatin 40 mg, 1 tab, Rout e: PO, Drug form: TAB, Bedtime, Dosing Weight 115.909, kg, Start date: 07/01/12 21:00:00, Duration: 30 day, Stop date: 07/30/12 21:00:00 PO No Longer Active Rajesh 07/02/2012 [facility] Levemir 70 unit, 0.7 mL, Route : SUB-Q, Drug form: INJ, Bedtime, Dosing Weight 115.909, kg, Start date: 07/01/12 21:00:00, Duration: 30 day, Stop date: 07/30/12 21:00:00 SUB-Q No Longer Active Rajesh 07/02/2012 [facility] Lyrica 25 mg, 1 cap, Route: PO , Drug form: CAP, QPM, Dosing Weight 115.909, kg, Start date: 07/01/12 17:00:00, Duration: 30 day, Stop date: 07/30/12 17:00:00 PO No Longer Active Majmundar 07/01/2012 [facility] Novolog 70/30 45 unit, 0.45 mL , Route: SUB-Q, Drug form: INJ, Before Dinner, Dosing Weight 115.909, kg, Start date: 07/01/12 16:50:00, Duration: 30 day, Stop date: 07/30/12 16:50:00 SUB-Q No Longer Active Rajesh 07/01/2012 [facility] Renvela 2,400 mg, 3 tab, Route : PO, Drug form: TAB, TID- Meals, Dosing Weight 115.909, kg, Start date: 07/01/12 12:00:00, Duration: 30 day, Stop date: 07/31/12 8:00:00 PO No Longer Active Rajesh 07/01/2012 [facility] oxybutynin 5 mg, 1 tab, Route: PO, Drug form: TAB, Q12H, Dosing Weight 115.909, kg, Start date: 07/01/12 12:00:00, Duration: 30 day, Stop date: 07/31/12 9:00:00 PO No Longer Active Rajesh 07/01/2012 [facility] Nephro-Melodie Rx 1 tab, Route: P O, Drug Form: TAB, Dosing Weight 115.909, kg, Lunch, Start date: 07/01/12 12:00:00, Duration: 30 day, Stop date: 07/30/12 12:00:00 PO No Longer Active [facility] 07/01/2012 [facility] lisinopril 20 mg, 1 tab, Route : PO, Drug form: TAB, Q12H, Dosing Weight 115.909, kg, Start date: 07/01/12 12:00:00, Duration: 30 day, Stop date: 07/31/12 9:00:00 PO No Longer Active [facility] 07/01/2012 [facility] gabapentin 100 mg oral capsule 200 mg, 2 cap, Route: PO, Drug form: CAP, Q12H, Dosing Weight 115.909, kg, Start date: 07/01/12 12:00:00, Stop date: 07/31/12 9:00:00 PO No Longer Active mundamoises 07/01/2012 [facility] NovoLog Mix 70/30 FlexPen 26 u nit, 0.26 mL, Route: SUB- Q, Drug form: INJ, Before Lunch, Dosing Weight 115.909, kg, Start date: 07/01/12 11:50:00, Duration: 30 day, Stop date: 07/30/12 11:50:00 SUB-Q No Longer Active [facility] 07/01/2012 [facility] pneumococcal 23-valent vaccine 0.5 ml, Route: IM, Drug Form: INJ, Daily, Start date: 07/01/12 9:00:00, Duration: 1 doses or times, Stop date: 07/01/12 9:00:00 IM No Longer Active [facility] 07/01/2012 [facility] atropine 0.5 mg, 5 mL, Route: IVP, Drug form: INJ, PRN, PRN Bradycardia, Start date: 07/01/12 5:22:00, Duration: 30 day, Stop date: 07/31/12 5:21:00 IVP No Longer Active [facility] 07/01/2012 [facility] nitroglycerin 0.4 mg sublingual tablet 0.4 mg, 1 tab, Route: SL, Drug form: TAB, Q5Min, PRN Chest Pain, Start date: 07/01/12 5:22:00, Duration: 30 day, Stop date: 07/31/12 5:21:00 SL No Longer Active Rajesh 07/01/2012 [facility] Lyrica 25 mg, PO, Daily, Subst itution Allowed PO Active Rajesh 07/01/2012 [facility] Saline Flush 0.9% 5 ml, Route: IVP, Drug Form: INJ, Dosing Weight 115.909, kg, PRN, PRN Line Flush, Start date: 07/01/12 3:20:00, Duration: 30 day, Stop date: 07/31/12 3:19:00 IVP No Longer Active Mena 07/01/2012 [facility] morphine Sulfate 2 mg, 1 mL, R oute: IVP, Drug form: INJ, Q3H, Dosing Weight 115.909, kg, PRN Pain Score 4-6, Start date: 07/01/12 3:20:00, Stop date: 07/31/12 3:19:00 IVP No Longer Active Mena 07/01/2012 [facility] ondansetron 4 mg, 2 mL, Route: IVP, Drug form: INJ, Q6H, Dosing Weight 115.909, kg, PRN Nausea & Vomiting, Start date: 07/01/12 3:20:00, Duration: 30 day, Stop date: 07/31/12 3:19:00 IVP No Longer Active Mena 07/01/2012 [facility] ceftriaxone + Sodium Chloride 0.9% IV 100 mL 1 gm, Route: IVPB, ONCE, Dosing Weight 115.909, kg, Start date: 06/30/12 23:17:00, Stop date: 06/30/12 23:17:00 IVPB No Longer Active Edith 07/01/2012 [facility] morphine Sulfate 2 mg, 0.2 mL, Route: IVP, Drug form: INJ, ONCE, Dosing Weight 115.909, kg, Priority: STAT, Start date: 06/30/12 23:10:00, Stop date: 06/30/12 23:10:00 IVP No Longer Active Edith 07/01/2012 [facility] Novolog 70/30 45 unit, SUB-Q, Dinner, Substitution Allowed SUB-Q Active Rajesh 07/01 [facility] NovoLog Mix 70/30 FlexPen 26 u nit, SUB-Q, Lunch, Substitution Allowed SUB-Q Active Mena 07/01/2012 [facility] Novolog 70/30 40 unit, SUB-Q, QAM, Substitution Allowed SUB-Q Active Mena 07/01 [facility] simvastatin 40 mg, 1 tab, PO, Bedtime, 30 tab, Substitution Allowed PO Active Mena 07/01/2012 [facility] amLODipine 5 mg, PO, Daily, Higgins bstitution Allowed PO Active 07/01/2012 [facility] lisinopril 20 mg oral tablet 2 0 mg, 1 tab, PO, BID, 30 tab, Substitution Allowed, TAB PO Active [facility] 07/01/2012 [facility] oxybutynin 5 mg oral tablet 5 mg, 1 tab, PO, BID, 30 tab, Substitution Allowed, TAB PO Active [facility] 07/01/2012 [facility] gabapentin 100 mg oral capsule 100 mg, 1 cap, PO, BID, 240 cap, Substitution Allowed PO Active [facility] 07/01/2012 [facility] carvedilol 25 mg oral tablet 5 0 mg, 2 tab, PO, BID, 60 tab, Substitution Allowed, TAB PO Active 07/01/2012 [facility] ropinirole 0.25 mg oral tablet 0.25 mg, 1 tab, PO, TID, 90 tab, Substitution Allowed, TAB PO Active 07/01/2012 [facility] Renvela 800 mg oral tablet 2,4 00 mg, 3 tab, PO, TID- Meals, 270 tab, Substitution Allowed, TAB PO Active [facility] 07/01/2012 [facility] albuterol 0.083% inhalation solution 19.92 mg, 24 mL, Route: NEB, Drug form: SOLN, ONCE, Dosing Weight 115.909, kg, Start date: 06/30/12 21:31:00, Stop date: 06/30/12 21:31:00 NEB No Longer Active [facility] 07/01/2012 [facility] Dextrose 50% Syringe 50 gm, 10 0 mL, Route: IV, Drug Form: INJ, Dosing Weight 115.909, kg, ONCE, Start date: 06/30/12 21:31:00, Stop date: 06/30/12 21:31:00 IV No [facility]er Active [facility] 07/01/2012 [facility] insulin regular human recombinant 100 un its/mL injectable solution 10 unit, 0.1 mL, Route: IVP, Drug form: INJ, ONCE, Dosing Weight 115.909, kg, Start date: 06/30/12 21:31:00, Stop date: 06/30/12 21:31:00 IVP No Longer Active Edith 04/2012 [facility] calcium gluconate + Sodium Chloride 0.9% IV 100 mL 2 gm, 20 mL, Route: IV, ONCE, Dosing Weight 115.909, kg, Start date: 06/30/12 21:31:00, Stop date: 06/30/12 21:31:00 IV No Longer Active Edith 07/01/2012 [facility] sodium polystyrene sulfonate 3 0 gm, 120 mL, Route: PO, Drug form: SUSP, ONCE, Dosing Weight 115.909, kg, Start date: 06/30/12 21:31:00, Duration: 1 doses or times, Stop date: 06/30/12 21:31:00 PO No Longer Active Edith 07/01/2012 [facility] Saline Flush 0.9% 5 ml, Route: IVP, Drug Form: INJ, Dosing Weight 115.909, kg, PRN, PRN Line Flush, Start date: 06/30/12 20:29:00, Duration: 24 hr, Stop date: 07/01/12 20:28:00 IVP No Longer Active Rajesh 07/01/2012 [facility] Epogen (ESRD) 10,000 unit, 1 m L, Route: SUB-Q, Drug form: INJ, Q-M-W-F, Start date: 02/17/12 17:00:00, Duration: 30 day, Stop date: 03/16/12 17:00:00 SUB-Q No Longer Active Rajesh 02/17/2012 [facility] cefepime 1 gm, Route: IVPB, AB [id number], Start date: 02/15/12 12:00:00, Duration: 30 day, Stop date: 03/16/12 0:00:00 IVPB No Longer Active Mougourduran 02/15/2012 [facility] Reglan 5 mg oral tablet 5 mg, 1 tab, Route: PO, Drug form: TAB, Before Meals & Bedtime, Start date: 02/15/12 11:30:00, Duration: 30 day, Stop date: 03/16/12 7:30:00 PO No Longer Active Kafrouni 02/15/2012 [facility] tramadol 50 mg oral tablet 50 mg, 1 tab, Route: PO, Drug form: TAB, Q12H, PRN as needed for pain, Start date: 02/15/12 11:05:00, Duration: 30 day, Stop date: 03/16/12 11:04:00 PO No Longer Active Rajesh 02/15/2012 [facility] lactulose 20 gm, 30 mL, Route: PO, Drug form: SYRP, Daily, Start date: 02/15/12 9:00:00, Duration: 30 day, Stop date: 03/15/12 9:00:00 PO No Longer Active Aleksey 02/15/2012 [facility] LR IV 500 mL 500 mL, Rate: 125 ml/hr, Infuse over: 4 hr, Route: IV, Dosing Weight 81.818 kg, Total Volume: 500, Start date: 02/15/12 7:39:00, Duration: 30 day, Stop date: 03/16/12 7:38:00 IV No Longer Active Mina 02/15/2012 [facility] LR IV 500 mL 500 mL 500 mL, Ra te: 40 ml/hr, Infuse over: 12.5 hr, Route: IV, Dosing Weight 81.818 kg, Total Volume: 500, Start date: 02/15/12 7:39:00, Duration: 30 day, Stop date: 03/16/12 7:38:00 IV No Longer Active Cindytricia 02/15/2012 [facility] Kayexalate 30 gm, 120 mL, Rout e: PO, Drug form: SUSP, ONCE, Start date: 02/14/12 16:24:00, Stop date: 02/14/12 16:24:00 PO No Longer Active Rajesh 02/14/2012 [facility] lactulose 20 gm, 30 mL, Route: PO, Drug form: SYRP, Q6H, Start date: 02/13/12 18:00:00, Duration: 6 doses or times, Stop date: 02/15/12 0:00:00 PO No Longer Active Aleksey 02/13/2012 [facility] MiraLax 17 gm, 1 pkt, Route: P O, Drug form: PWDR, BID, Start date: 02/11/12 17:00:00, Duration: 30 day, Stop date: 03/12/12 9:00:00 PO No Longer Active Kafrouni [facility] Dulcolax Laxative 10 mg, 1 sup p, Route: NC, Drug form: SUPP, ONCE, Start date: 02/11/12 12:14:00, Stop date: 02/11/12 12:14:00 NC No Longer Active Kafrouni [facility] carvedilol 12.5 mg oral tablet 12.5 mg, 1 tab, PO, Q12H, 60 tab, Substitution Allowed, TAB PO Active Moug ouris 02/11/2012 [facility] Bentyl 20 mg oral tablet 20 mg , 1 tab, PO, QID, 30 tab, Substitution Allowed, TAB PO Active Mougouris 02/11/2012 [facility] [place] 10/325 oral tablet 1 tab , PO, Q4H, PRN, 30 tab, Pain, Substitution Allowed, Maintenance, TAB PO Active Mougouris 02/11/2012 [facility] [place] 10/325 oral tablet 1 tab , Route: PO, Drug Form: TAB, Q4H, PRN Pain, Start date: 02/11/12 11:17:00, Duration: 30 day, Stop date: 03/12/12 11:16:00 PO No Longer Active Mougouris 02/11/2012 [facility] carvedilol 12.5 mg, 1 tab, Rou te: PO, Drug form: TAB, Q12H, Start date: 02/10/12 21:00:00, Duration: 30 day, Stop date: 03/11/12 9:00:00 PO No Longer Active Rajesh 02/11/2012 [facility] Bentyl 20 mg, 1 tab, Route: PO , Drug form: TAB, QID, Start date: 02/10/12 17:00:00, Duration: 30 day, Stop date: 03/11/12 13:00:00 PO No Longer Active Mougouris 0 02/10/2012 [facility] hydrALAZINE 20 mg, 1 mL, Route : IV, Drug form: INJ, Q6H, PRN Elevated BP, Start date: 02/08/12 1:54:00, Duration: 30 day, Stop date: 03/09/12 1:53:00 IV No Longer Active Jaspreet 02/08/2012 [facility] docusate sodium 100 mg oral capsule 100 mg, 1 cap, Route: PO, Drug form: CAP, BID, Start date: 02/06/12 12:30:00, Duration: 30 day, Stop date: 03/07/12 9:00:00 PO No Longer Active Le 02/06/2012 [facility] Phenergan 12.5 mg, 0.5 mL, Rou te: IVPB, Q4H, PRN Nausea & Vomiting, Start date: 02/05/12 21:01:00, Duration: 30 day, Stop date: 03/06/12 21:00:00 IVPB No Longer Active [facility] 02/06/2012 [facility] Cipro 250 mg, 1 tab, Route: PO , Drug form: TAB, Q48H, Start date: 02/03/12 13:00:00, Duration: 30 day, Stop date: 03/02/12 13:00:00 PO No Longer Active Chula 01/23 [facility] Detrol 4 mg, 2 tab, Route: PO, Drug form: TAB, Daily, Start date: 02/02/12 9:00:00, Duration: 30 day, Stop date: 03/02/12 9:00:00 PO No Longer Active Chula 01/23 [facility] pravastatin 80 mg, 4 tab, Rout e: PO, Drug form: TAB, Bedtime, Start date: 02/01/12 21:00:00, Duration: 30 day, Stop date: 03/01/12 21:00:00 PO No Longer Active Chula 02/02/2012 [facility] Levemir 40 unit, 0.4 mL, Route : SUB-Q, Drug form: INJ, Bedtime, Start date: 02/01/12 21:00:00, Duration: 30 day, Stop date: 03/01/12 21:00:00 SUB-Q No Longer Active Chula 02/02/2012 [facility] carvedilol 6.25 mg, 2 tab, Rou te: PO, Drug form: TAB, Q12H, Start date: 02/01/12 21:00:00, Duration: 30 day, Stop date: 03/02/12 9:00:00 PO No Longer Active Rajesh 02/02/2012 [facility] clonidine 0.2 mg oral tablet 0 .2 mg, 1 tab, Route: PO, Drug form: TAB, [id number], Start date: 02/01/12 18:00:00, Duration: 30 day, Stop date: 03/02/12 6:00:00 PO No Longer Active Chula 02/01/2012 [facility] Detrol LA 4 mg, 1 cap, Route: PO, Drug form: CAP, QPM, Start date: 02/01/12 17:00:00, Duration: 30 day, Stop date: 03/01/12 17:00:00 PO No Longer Active [place] 06/2012 [facility] riboflavin 100 mg, 1 tab, Rout e: PO, Drug form: TAB, Daily, Start date: 02/01/12 17:00:00, Duration: 30 day, Stop date: 03/02/12 9:00:00 PO No Longer Active Chula 02/01/2012 [facility] Vitamin B6 100 mg, 1 tab, Rout e: PO, Drug form: TAB, Daily, Start date: 02/01/12 17:00:00, Duration: 30 day, Stop date: 03/02/12 9:00:00 PO No Longer Active Chula 02/01/2012 [facility] folic acid 1 mg, 1 tab, Route: PO, Drug form: TAB, Daily, Start date: 02/01/12 17:00:00, Duration: 30 day, Stop date: 03/02/12 9:00:00 PO No Longer Active [place] 02/01/2012 [facility] Vitamin B12 1,000 microgram, 2 tab, Route: PO, Drug form: TAB, Daily, Start date: 02/01/12 17:00:00, Duration: 30 day, Stop date: 03/02/12 9:00:00 PO No Longer Active Chula 02/01/2012 [facility] PhosLo Gelcap 2,001 mg, 3 cap, Route: PO, Drug form: CAP, TID-Meals, Start date: 02/01/12 17:00:00, Duration: 30 day, Stop date: 03/02/12 12:00:00 PO No Longer Active Chula 02/01/2012 [facility] ferrous sulfate 325 mg, 1 tab, Route: PO, Drug form: ECTAB, TID-Before Meals, Start date: 02/01/12 16:30:00, Duration: 30 day, Stop date: 03/02/12 11:30:00 PO No Longer Active [facility] 02/01/2012 [facility] gemfibrozil 600 mg, 1 tab, Rou te: PO, Drug form: TAB, BID-Before Meals, Start date: 02/01/12 16:30:00, Duration: 30 day, Stop date: 03/02/12 7:30:00 PO No Longer Active [facility] 02/01/2012 [facility] Dextrose 50% in Water IV 50 mL , Route: IVP, Start date: 02/01/12 15:23:00, Duration: 30 day, Stop date: 03/02/12 15:22:00, PRN Blood Glucose Results IVP No Longer Active [facility] 02/01/2012 [facility] glucagon 1 mg, Route: IM, Drug form: PDR/INJ, PRN, PRN Blood Glucose Results, Start date: 02/01/12 15:23:00, Duration: 30 day, Stop date: 03/02/12 15:22:00 IM No Longer Active [facility] 02/01/2012 [facility] NovoLog FlexPen 6 unit, 0.06 m L, Route: SUB-Q, Drug form: SOLN, Sliding Scale, PRN Blood Glucose Results, Start date: 02/01/12 15:23:00, Duration: 30 day, Stop date: 03/02/12 15:22:00 SUB-Q No Longer Active [facility] 02/01/2012 [facility] NovoLog FlexPen 1 unit, 0.01 m L, Route: SUB-Q, Drug form: SOLN, Sliding Scale, PRN Blood Glucose Results, Start date: 02/01/12 15:22:00, Duration: 30 day, Stop date: 03/02/12 15:21:00 SUB-Q No Longer Active [facility] 02/01/2012 [facility] gabapentin 300 mg oral capsule 300 mg, 1 cap, Route: PO, Drug form: CAP, Q12H, Start date: 02/01/12 15:00:00, Duration: 30 day, Stop date: 03/02/12 9:00:00 PO No Longer Active [facility] 02/01/2012 [facility] furosemide 40 mg oral tablet 4 0 mg, 1 tab, Route: PO, Drug form: TAB, Daily, Start date: 02/01/12 15:00:00, Duration: 30 day, Stop date: 03/02/12 9:00:00 PO No Longer Active [place] 02/01/2012 [facility] diltiazem 240 mg, 1 cap, Route : PO, Drug form: ERCAP, Daily, Start date: 02/01/12 15:00:00, Duration: 30 day, Stop date: 03/02/12 9:00:00 PO No Longer Active Chula 02/01/2012 [facility] Vitamin C 500 mg, 1 tab, Route : PO, Drug form: TAB, Daily, Start date: 02/01/12 15:00:00, Duration: 30 day, Stop date: 03/02/12 9:00:00 PO No Longer Active Ch[place] 02/01/2012 [facility] Dilaudid 2 mg, 1 mL, Route: IV , Drug form: INJ, Q4H, PRN Pain, Start date: 02/01/12 11:18:00, Duration: 30 day, Stop date: 03/02/12 11:17:00 IV No Longer Active Hector 02/01/2012 [facility] belladonna-opium 16.2 mg-60 mg rectal suppository 1 supp, Route: NC, Drug Form: SUPP, Q12H, PRN Spasm, Start date: 02/01/12 10:07:00, Duration: 30 day, Stop date: 03/02/12 10:06:00 NC No Longer Active Samanthat 02/01/2012 [facility] clonidine 0.1 mg, 1 tab, Route : PO, Drug form: TAB, Q6H, PRN Elevated BP, Start date: 02/01/12 0:56:00, Duration: 30 day, Stop date: 03/02/12 0:55:00 PO No Longer Active [facility] 02/01/2012 [facility] morphine Sulfate 4 mg, 2 mL, R oute: IVP, Drug form: INJ, Q3H, PRN Pain Score 7-10, Start date: 02/01/12 0:56:00, Duration: 30 day, Stop date: 03/02/12 0:55:00 IVP No Longer Active [facility] 02/01/2012 [facility] erythromycin ophthalmic 0.5% ointment 0.5 inch, LEFT EYE, QID, 1 tube, Substitute Allowed LEFT EYE Active Moug ouris 02/01/2012 [facility] Cipro 250 mg, 1 tab, Route: PO , Drug form: TAB, ONCE, Start date: 01/31/12 22:33:00, Stop date: 01/31/12 22:33:00 PO No Longer Active [place] 02/01/2012 [facility] morphine Sulfate 6 mg, 3 mL, R oute: IVP, Drug form: INJ, ONCE, Priority: STAT, Start date: 01/31/12 21:40:00, Stop date: 01/31/12 21:40:00 IVP No Longer Active [place] 02/01/2012 [facility] morphine Sulfate 8 mg, 4 mL, R oute: IVP, Drug form: INJ, ONCE, Priority: STAT, Start date: 01/31/12 19:06:00, Stop date: 01/31/12 19:06:00 IVP No Longer Active [place] 02/01/2012 [facility] Vitamin C 500 mg oral tablet 5 00 mg, 1 tab, PO, Daily, 30 tab, Substitution Allowed, TAB PO Active [facility] 01/29/2012 [facility] PhosLo Gelcap 667 mg oral capsule 2,001 mg, 3 cap, PO, TID-Meals, 90 cap, Substitution Allowed, CAP PO Active [facility] 01/29/2012 [facility] carvedilol 3.125 mg oral tablet 6.25 mg, 2 tab, PO, Q12H, 60 tab, Substitution Allowed, TAB PO Active [facility] 01/29/2012 [facility] Cipro 250 mg oral tablet 250 m g, 1 tab, PO, [id number], 7 tab, Substitution Allowed, TAB PO Active [facility] 01/29/2012 [facility] Vitamin B12 500 mcg oral tablet 1,000 microgram, 2 tab, PO, Daily, 30 tab, Substitution Allowed, TAB PO Active [facility] 01/29/2012 [facility] ferrous sulfate 325 mg oral enteric coated tablet 325 mg, 1 tab, PO, TID-Before Meals, 90 tab, Substitution Allowed, ECTAB PO Active [facility] 01/29/2012 [facility] folic acid 1 mg oral tablet 1 mg, 1 tab, PO, Daily, 30 tab, Substitution Allowed, TAB PO Active [facility] 01/29/2012 [facility] Ditropan XL 5 mg oral tablet, extended release 15 mg, 3 tab, PO, Daily, 30 tab, Substitution Allowed, ERTAB PO Active Mougouris 01/29/2012 [facility] Vitamin B6 100 mg oral tablet 100 mg, 1 tab, PO, Daily, 30 tab, Substitution Allowed, TAB PO Active Moug ouris 01/29/2012 [facility] riboflavin 100 mg oral tablet 100 mg, 1 tab, PO, Daily, 30 tab, Substitution Allowed, TAB PO Active Moug ouris 01/29/2012 [facility] Detrol LA 4 mg oral capsule, extended release 4 mg, 1 cap, PO, Daily, 30 cap, Substitution Allowed PO Active Mougouris 01/29/2012 [facility] Detrol LA 4 mg, 1 cap, Route: PO, Drug form: CAP, Daily, Start date: 01/27/12 9:28:00, Duration: 30 day, Stop date: 02/26/12 9:00:00 PO No Longer Active Hoggatt 01/2012 [facility] belladonna-opium 16.2 mg-60 mg rectal suppository 1 supp, Route: NC, Drug Form: SUPP, ONCE, Start date: 01/26/12 20:45:00, Stop date: 01/26/12 20:45:00 NC No Longer Active [facility] 01/27/2012 [facility] Ativan 1 mg, 0.5 mL, Route: IV , Drug form: INJ, ONCALL, Start date: 01/24/12 22:00:00, Duration: 1 doses or times, Stop date: 01/25/12 0:00:00 IV No Longer Active Crystal 01/25/2012 [facility] MiraLax 17 gm, 1 pkt, Route: P O, Drug form: PWDR, Bedtime, Start date: 01/24/12 21:00:00, Duration: 30 day, Stop date: 02/22/12 21:00:00 PO No Longer Active Mougouris 01/25/2012 [facility] Cipro 250 mg, 1 tab, Route: PO , Drug form: TAB, [id number], Start date: 01/24/12 12:00:00, Duration: 30 day, Stop date: 02/21/12 12:00:00 PO No Longer Active Abdulla 10/2011 [facility] albuterol 0.083% inhalation solution 2.49 mg, 3 mL, Route: NEB, Drug form: SOLN, RQ6H, PRN Wheezing, PRN wheezing or SOB, Start date: 01/24/12 11:43:00, Duration: 30 day, Stop date: 02/23/12 11:42:00 NEB No Longer Active Abdulla 10/2011 [facility] Ditropan XL 15 mg, 3 tab, Rout e: PO, Drug form: ERTAB, Daily, Start date: 01/24/12 9:00:00, Duration: 30 day, Stop date: 02/22/12 9:00:00 PO No Longer Active Cesar 01/24/2012 [facility] MiraLax 17 gm, 1 pkt, Route: P O, Drug form: PWDR, ONCE, Start date: 01/23/12 17:20:00, Stop date: 01/23/12 17:20:00 PO No Longer Active Bobby 01/23/2012 [facility] Senokot 17.2 mg, 2 tab, Route: PO, Drug form: TAB, Bedtime, PRN Constipation, Start date: 01/23/12 16:59:00, Duration: 30 day, Stop date: 02/22/12 16:58:00 PO No Longer Active Bobby 01/23/2012 [facility] Dilaudid 2 mg, 1 mL, Route: IV P, Drug form: INJ, Q3H, PRN Pain, Start date: 01/23/12 16:58:00, Duration: 30 day, Stop date: 02/22/12 16:57:00 IVP No Longer Active Bobby 01/23/2012 [facility] cefepime 1 gm, Route: IVPB, AB XQ12H, Start date: 01/22/12 13:00:00, Duration: 30 day, Stop date: 02/21/12 1:00:00 IVPB No Longer Active Mougouris 01/22/2012 [facility] Maxipime 1 gm, Route: IVPB, AB XQ24H, Start date: 01/22/12 13:00:00, Duration: 30 day, Stop date: 02/20/12 13:00:00 IVPB No Longer Active Mougouris 01/22/2012 [facility] Procrit 10,000 unit, 1 mL, Rou te: SUB-Q, Drug form: INJ, Q-M-W-F, Start date: 01/20/12 9:00:00, Duration: 30 day, Stop date: 02/17/12 9:00:00 SUB-Q No Longer Active Bobby 01/20/2012 [facility] ferrous sulfate 325 mg, 1 tab, Route: PO, Drug form: ECTAB, TID-Before Meals, Start date: 01/20/12 8:00:00, Duration: 30 day, Stop date: 02/18/12 16:30:00 PO No Longer Active Bobby 01/20/2012 [facility] Venofer 200 mg, Route: IV, Zach g form: INJ, Daily, Start date: 01/19/12 20:00:00, Duration: 4 day, Stop date: 01/22/12 20:00:00 IV No Longer Active Bobby 12/24 [facility] Lasix 20 mg, 2 mL, Route: IVP, Drug form: INJ, PRN, PRN Blood Transfusion, Start date: 01/14/12 17:50:00, Duration: 2 doses or times, Stop date: Limited # of times IVP No Longer Active Bobby 01/14/2012 [facility] Colace 100 mg oral capsule 100 mg, 1 cap, Route: PO, Drug form: CAP, BID, Start date: 01/14/12 17:00:00, Duration: 30 day, Stop date: 02/13/12 9:00:00 PO No Longer Active Mougouris 01/14/2012 [facility] Dulcolax Laxative 10 mg, 1 sup p, Route: NC, Drug form: SUPP, Daily, PRN Constipation, Start date: 01/14/12 14:23:00, Stop date: 02/13/12 20:00:00 NC No Longer Active Mougouris 01/14/2012 [facility] Fleet Enema 133 ml, Route: NC, ONCE, Start date: 01/14/12 14:23:00, Stop date: 01/14/12 14:23:00 NC No Longer Active Mougouris 01/14/2012 [facility] lactulose 20 gm, 30 ml, Route: PO, Drug Form: SYRP, Daily, PRN Constipation, Start date: 01/14/12 14:23:00, Duration: 30 day, Stop date: 02/13/12 14:22:00 PO No Longer Active Mougouris 01/14/2012 [facility] Lasix 20 mg, 2 mL, Route: IV, Drug form: INJ, ONCALL, PRN Blood Transfusion, Start date: 01/14/12 13:49:00, Duration: 24 hr, Stop date: 01/15/12 13:48:00 IV No Longer Active Bobby 01/14/2012 [facility] Sodium Chloride 0.9% IV IV, 30 ml/hr, PRN, PRN Blood Transfusion, Start date: 01/14/12 13:48:00, Duration: 24, 250 ml IV No Longer Active Bobby 01/14/2012 [facility] Lasix 20 mg, 2 mL, Route: IV, Drug form: INJ, After Transfusion, PRN Blood Transfusion, Start date: 01/14/12 9:45:00, Duration: 1 day, Stop date: 01/15/12 9:44:00 IV No Longer Active Bobby 01/14/2012 [facility] belladonna-opium 16.2 mg-60 mg rectal suppository 1 supp, Route: NC, Drug Form: SUPP, Q6H, PRN Spasm, Start date: 01/14/12 9:44:00, Stop date: 01/27/12 20:00:00 NC No Longer Active [place] 01/14/2012 [facility] PhosLo Gelcap 2,001 mg, 3 cap, Route: PO, Drug form: CAP, TID-Meals, with meals, Start date: 01/11/12 8:00:00, Duration: 30 day, Stop date: 02/09/12 17:00:00 PO No Longer Active Rajesh 01/11/2012 [facility] furosemide 100 mg + Sodium Chloride 0.9% IV 90 mL 90 mL, Rate: 10 ml/hr, Infuse over: 10 hr, Route: IV, Dosing Weight 100.227 kg, Total Volume: 100, Start date: 01/10/12 20:00:00, Duration: 30 day, Stop date: 02/09/12 19:59:00 IV No Longer Active Rajesh 01/11/2012 [facility] Lasix 80 mg, 8 mL, Route: IVP, Drug form: INJ, ONCE, Start date: 01/10/12 18:30:00, Stop date: 01/10/12 18:30:00 IVP No Longer Active Rajesh 01/10/2012 [facility] sodium bicarbonate 8.4% 50 mEq , 50 mL, Route: IV, Drug Form: INJ, ONCE, Start date: 01/10/12 18:00:00, Stop date: 01/10/12 18:00:00 IV No Longer Active Rajesh 01/09 [facility] Kayexalate 30 gm, 120 mL, Rout e: PO, Drug form: SUSP, ONCE, Start date: 01/10/12 10:39:00, Stop date: 01/10/12 10:39:00 PO No Longer Active Rajesh 01/10/2012 [facility] Levemir 44 unit, 0.44 mL, Rout e: SUB-Q, Drug form: INJ, Bedtime, Start date: 01/09/12 21:00:00, Duration: 30 day, Stop date: 02/07/12 21:00:00 SUB-Q No Longer Active [place] 01/10/2012 [facility] sodium bicarbonate 325 mg oral tablet 650 mg, 1 tab, Route: PO, Drug Form: TAB, BID, Start date: 01/09/12 17:00:00, Duration: 30 day, Stop date: 02/08/12 9:00:00 PO No Longer Active Rjaesh 01/09/2012 [facility] calcium gluconate 1,000 mg, 10 mL, Route: IVPB, ONCE, Start date: 01/09/12 16:34:00, Stop date: 01/09/12 16:34:00 IVPB No Longer Active [place] 01/09/2012 [facility] Vitamin C 500 mg, 1 tab, Route : PO, Drug form: TAB, Daily, Start date: 01/09/12 9:00:00, Duration: 30 day, Stop date: 02/07/12 9:00:00 PO No Longer Active Bobby 01/09/2012 [facility] folic acid 1 mg oral tablet 1 mg, 1 tab, Route: PO, Drug form: TAB, Daily, Start date: 01/09/12 9:00:00, Duration: 30 day, Stop date: 02/07/12 9:00:00 PO No Longer Active Bobby 01/09/2012 [facility] Vitamin B12 1,000 microgram, 2 tab, Route: PO, Drug form: TAB, Daily, Start date: 01/09/12 9:00:00, Duration: 30 day, Stop date: 02/07/12 9:00:00 PO No Longer Active [facility] 01/09/2012 [facility] riboflavin 100 mg, 1 tab, Rout e: PO, Drug form: TAB, Daily, Start date: 01/09/12 9:00:00, Duration: 30 day, Stop date: 02/07/12 9:00:00 PO No Longer Active [facility]cludes [facility] 01/09/2012 [facility] Vitamin B6 100 mg, 1 tab, Rout e: PO, Drug form: TAB, Daily, Start date: 01/09/12 9:00:00, Duration: 30 day, Stop date: 02/07/12 9:00:00 PO No Longer Active [facility]cludes [facility] 01/09/2012 [facility] Lasix 80 mg, 8 mL, Route: IVP, Drug form: INJ, Q12H, Start date: 01/08/12 21:00:00, Duration: 30 day, Stop date: 02/07/12 9:00:00 IVP No Longer Active Rajesh 01/08 [facility] ferrous sulfate 325 mg, 1 tab, Route: PO, Drug form: ECTAB, TID-Before Meals, Start date: 01/08/12 16:30:00, Duration: 30 day, Stop date: 02/07/12 11:30:00 PO No Longer Active [facility] 01/08/2012 [facility] acetaminophen-hydrocodone 325 mg-5 mg oral tablet 2 tab, Route: PO, Drug Form: TAB, Q6H, PRN Pain, Start date: 01/08/12 15:49:00, Duration: 30 day, Stop date: 02/07/12 15:48:00 PO No Longer Active [facility] 01/08/2012 [facility] PhosLo Gelcap 667 mg, 1 cap, R oute: PO, Drug form: CAP, TID-Meals, with meals, Start date: 01/08/12 12:00:00, Duration: 30 day, Stop date: 02/07/12 8:00:00 PO No Longer Active Rajesh 01/08/2012 [facility] Lasix 40 mg, 4 mL, Route: IVP, Drug form: INJ, Q12H, Start date: 01/07/12 21:00:00, Duration: 30 day, Stop date: 02/06/12 9:00:00 IVP No Longer Active Mena 01/07 [facility] Dextrose 50% Syringe 12.5 gm, 25 mL, Route: IVP, Drug Form: INJ, PRN, PRN Blood Glucose Results, Start date: 01/07/12 12:05:00, Duration: 30 day, Stop date: 02/06/12 12:04:00 IVP No Longer Active Mnea 01/07/2012 [facility] glucagon 1 mg, Route: IM, Drug form: PDR/INJ, PRN, PRN Blood Glucose Results, Start date: 01/07/12 12:05:00, Duration: 30 day, Stop date: 02/06/12 12:04:00 IM No Longer Active Mena 01/07/2012 [facility] insulin aspart 10 unit, 0.1 mL , Route: SUB-Q, Drug form: SOLN, Sliding Scale, PRN Blood Glucose Results, BG > = 350 mg/dl;, Start date: 01/07/12 12:05:00, Stop date: 02/06/12 12:04:00 SUB-Q No Longer Active [facility] 01/07/2012 [facility] Lasix 40 mg, 4 mL, Route: IV, Drug form: INJ, ONCE, Priority: STAT, Start date: 01/07/12 11:36:00, Stop date: 01/07/12 11:36:00 IV No Longer Active [facility] 01/06 [facility] magnesium sulfate 2 gm, 50 mL, Route: IVPB, Drug form: INJ, ONCE, Total dose = 2 gm, Start date: 01/05/12 18:26:00, Duration: 1 doses or times, Stop date: 01/05/12 18:26:00 IVPB No Longer Active [facility] 01/05/2012 [facility] Protonix 40 mg, 1 tab, Route: PO, Drug form: ECTAB, Before Dinner, Start date: 01/05/12 11:56:00, Duration: 30 day, Stop date: 02/03/12 16:30:00 PO No Longer Active [place] 01/05/2012 [facility] calcium chloride 2,000 mg, 20 mL, Route: IV, Drug form: INJ, ONCE, Start date: 01/05/12 8:26:00, Stop date: 01/05/12 8:26:00 IV No Longer Active Rajesh 01/04 [facility] carvedilol 6.25 mg, 2 tab, Rou te: PO, Drug form: TAB, Q12H, Start date: 01/04/12 21:00:00, Duration: 30 day, Stop date: 02/03/12 9:00:00 PO No Longer Active Rajesh 01/05/2012 [facility] lactulose 10 g/15 mL oral syrup 20 gm, 30 mL, Route: PO, Drug Form: SYRP, Daily, PRN Constipation, Start date: 01/04/12 16:24:00, Duration: 30 day, Stop date: 02/03/12 16:23:00 PO No Longer Active [place] 01/04/2012 [facility] Lyrica 150 mg, 2 cap, Route: P O, Drug form: CAP, TID, Start date: 01/04/12 13:00:00, Duration: 30 day, Stop date: 02/03/12 9:00:00 PO No Longer Active [place] [address] [place] [address] Kayexalate 15 gm, 60 mL, Route : PO, Drug form: SUSP, ONCE, Start date: 01/04/12 12:20:00, Stop date: 01/04/12 12:20:00 PO No Longer Active [place] 01/04/2012 [facility] calcium gluconate 2,000 mg, 20 mL, Route: IV, ONCE, Start date: 01/03/12 20:26:00, Stop date: 01/03/12 20:26:00 IV No Longer Active Elsy 01/04/2012 [facility] Kayexalate 20 gm, 80 mL, Route : PO, Drug form: SUSP, ONCE, Start date: 01/03/12 20:26:00, Stop date: 01/03/12 20:26:00 PO No Longer Active Elsy 01/04/2012 [facility] Sodium Chloride 0.9% IV 1,000 mL 1,000 mL, Rate: 100 ml/hr, Infuse over: 10 hr, Route: IV, Dosing Weight 100.227 kg, Total Volume: 1,000, Start date: 01/03/12 20:25:00, Duration: 30 day, Stop date: 02/02/12 20:24:00 IV No Longer Active Rajesh 01/04/2012 [facility] acetaminophen-hydrocodone 325 mg-10 mg oral tablet 1 tab, Route: PO, Drug Form: TAB, ONCE, Start date: 01/02/12 12:40:00, Stop date: 01/02/12 12:40:00 PO No Longer Active Abdulla 01/02/2012 [facility] Fluvirin [id number] 0.5 mL, Rou te: IM, Drug Form: SUSP, Start date: 01/02/12 9:00:00, Stop date: 01/02/12 9:00:00 Inactive [facility] 01/02/2012 [facility] calcium gluconate 2,000 mg, 20 mL, Route: IV, ONCE, Start date: 01/01/12 11:00:00, Stop date: 01/01/12 11:00:00 IV No Longer Active Mena 01/01/2012 [facility] methadone 2.5 mg, 2.5 mL, Rout e: PO, Drug form: SOLN, BID, Start date: 01/01/12 9:00:00, Duration: 30 day, Stop date: 01/30/12 17:00:00 PO No Longer Active Aliya 01/01/2012 [facility] losartan 100 mg, 2 tab, Route: PO, Drug form: TAB, Daily, Start date: 01/01/12 9:00:00, Duration: 30 day, Stop date: 01/30/12 9:00:00 PO No Longer Active Mena 01/01/2012 [facility] Levemir 20 unit, 0.2 mL, Route : SUB-Q, Drug form: INJ, Daily, Start date: 01/01/12 9:00:00, Duration: 30 day, Stop date: 01/30/12 9:00:00 SUB-Q No Longer Active Mougouris 01/01/2012 [facility] furosemide 40 mg oral tablet 4 0 mg, 1 tab, Route: PO, Drug form: TAB, Daily, Start date: 01/01/12 9:00:00, Duration: 30 day, Stop date: 01/30/12 9:00:00 PO No Longer Active Rajesh 01/01/2012 [facility] diltiazem 240 mg, 1 cap, Route : PO, Drug form: ERCAP, Daily, Start date: 01/01/12 9:00:00, Duration: 30 day, Stop date: 01/30/12 9:00:00 PO No Longer Active Mougouris 01/01/2012 [facility] Sodium Chloride 0.45% IV 1,000 mL 1,000 mL, Rate: 75 ml/hr, Infuse over: 13.3 hr, Route: IV, Total Volume: 1,000, Start date: 12/31/11 21:09:00, Duration: 30 day, Stop date: 01/30/12 21:08:00 IV No Longer Active Cardenas 01/01/2012 [facility] Levemir 40 unit, 0.4 mL, Route : SUB-Q, Drug form: INJ, Bedtime, Start date: 12/31/11 21:00:00, Duration: 30 day, Stop date: 01/29/12 21:00:00 SUB-Q No Longer Active Sarker 01/01/2012 [facility] Lyrica 150 mg, 2 cap, Route: P O, Drug form: CAP, BID, Start date: 12/31/11 21:00:00, Duration: 30 day, Stop date: 01/30/12 17:00:00 PO No Longer Active [place] 012 [facility] metFORmin 1000 mg oral tablet, extended release 1,000 mg, 2 tab, Route: PO, Drug form: ERTAB, BID, Start date: 12/31/11 17:00:00, Duration: 30 day, Stop date: 01/30/12 9:00:00 PO No Longer Active [place] 12/31/2011 [facility] pravastatin 80 mg, 4 tab, Rout e: PO, Drug form: TAB, Daily, Start date: 12/31/11 17:00:00, Duration: 30 day, Stop date: 01/29/12 17:00:00 PO No Longer Active Mougouris 12/31/2011 [facility] gemfibrozil 600 mg, 1 tab, Rou te: PO, Drug form: TAB, BID, Start date: 12/31/11 17:00:00, Duration: 30 day, Stop date: 01/30/12 9:00:00 PO No Longer Active Mougouris 12/31/2011 [facility] clonidine 0.2 mg oral tablet 0 .2 mg, 1 tab, Route: PO, Drug form: TAB, BID, Start date: 12/31/11 17:00:00, Duration: 30 day, Stop date: 01/30/12 9:00:00 PO No Longer Active Mougouris 12/31/2011 [facility] Neurontin 300 mg, 1 cap, Route : PO, Drug form: CAP, Q8H, Start date: 12/31/11 16:00:00, Duration: 30 day, Stop date: 01/30/12 8:00:00 PO No Longer Active Hamid 12/30 [facility] hydrALAZINE 25 mg oral tablet 25 mg, 1 tab, Route: PO, Drug form: TAB, Q6H, PRN Elevated BP, Start date: 12/31/11 13:15:00, Duration: 30 day, Stop date: 01/30/12 13:14:00, systolic blood pressure greater than 180 mm Hg. PO No Longer Active Rajesh 12/31/2011 [facility] enoxaparin 40 mg, 0.4 mL, Rout e: SUB-Q, Drug form: INJ, [id number], Start date: 12/31/11 12:00:00, Duration: 30 day, Stop date: 01/30/12 0:00:00 SUB-Q No Longer Active [place] 12/31/2011 [facility] hydromorphone 1 mg, 1 mL, Rout e: IVP, Drug form: SOLN, Q3H, PRN Pain, Start date: 12/31/11 11:55:00, Stop date: 01/30/12 11:54:00 IVP No Longer Active Cardenas 2011 [facility] hydromorphone 2 mg, 2 mL, Rout e: IVP, Drug form: SOLN, Q3H, PRN Pain, Start date: 12/31/11 11:53:00, Duration: 30 day, Stop date: 01/30/12 11:52:00 IVP No Longer Active Mougouris 12/31/2011 [facility] insulin aspart 2 unit, 0.02 mL , Route: SUB-Q, Drug form: SOLN, TID-Before Meals, PRN Blood Glucose Results, Start date: 12/31/11 11:30:00, Duration: 30 day, Stop date: 01/30/12 11:29:00 SUB-Q No Longer Active Rajesh 12/31/2011 [facility] Dextrose 50% Syringe 12.5 gm, 25 mL, Route: IVP, Drug Form: INJ, PRN, PRN Blood Glucose Results, Start date: 12/31/11 11:30:00, Duration: 30 day, Stop date: 01/30/12 12:29:00 IVP No Longer Active Mougouris 12/31/2011 [facility] glucagon 1 mg, Route: IM, Drug form: PDR/INJ, PRN, PRN Blood Glucose Results, Start date: 12/31/11 11:30:00, Duration: 30 day, Stop date: 01/30/12 12:29:00 IM No Longer Active Mougouris 12/31/2011 [facility] Phenergan 12.5 mg, 0.5 mL, Rou te: IVPB, Q4H, PRN Nausea & Vomiting, Start date: 12/31/11 11:29:00, Duration: 30 day, Stop date: 01/30/12 11:28:00 IVPB No Longer Active Mougouris 12/31/2011 [facility] Saline Flush 0.9% 5 ml, Route: IVP, Drug Form: INJ, PRN, PRN Line Flush, Start date: 12/31/11 11:21:00, Duration: 30 day, Stop date: 01/30/12 12:20:00 IVP No Longer Active Mougouris 12/31/2011 [facility] docusate 100 mg, 1 cap, Route: PO, Drug form: CAP, BID, PRN Constipation, Start date: 12/31/11 11:21:00, Duration: 30 day, Stop date: 01/30/12 11:20:00 PO No Longer Active Mougouris 12/31/2011 [facility] acetaminophen 650 mg, 2 tab, R oute: PO, Drug form: TAB, Q4H, PRN Pain/Fever, Start date: 12/31/11 11:21:00, Duration: 30 day, Stop date: 01/30/12 11:20:00 PO No Longer Active Mougouris 12/31/2011 [facility] temazepam 15 mg, 1 cap, Route: PO, Drug form: CAP, Bedtime, PRN Insomnia, Start date: 12/31/11 11:21:00, Duration: 30 day, Stop date: 01/30/12 11:20:00 PO No Longer Active Mougouris 12/31/2011 [facility] ondansetron 4 mg, 2 mL, Route: IVP, Drug form: INJ, Q6H, PRN Nausea & Vomiting, Start date: 12/31/11 11:21:00, Duration: 30 day, Stop date: 01/30/12 11:20:00 IVP No Longer Active Mougouris 12/31/2011 [facility] Levemir 100 units/mL subcutaneous solution 40 units, SUB-Q, Bedtime, Substitution Allowed SUB-Q Active Moug ouris 12/31/2011 [facility] influenza virus vaccine, inactivated 0.5 mL, Route: IM, Drug Form: SUSP, Start date: 12/31/11 9:00:00, Stop date: 12/31/11 9:00:00 No Longer Active SYSTEM 05/2012 [facility] Kayexalate 15 gm, 60 mL, Route : PO, Drug form: SUSP, QID, Start date: 12/31/11 9:00:00, Duration: 30 day, Stop date: 01/29/12 21:00:00 PO No Longer Active Rajesh 12/31/2011 [facility] Dilaudid 0.5 mg, 0.5 mL, Route : IV, Drug form: SOLN, Q3H, PRN Pain, 0.5-1mg every 3 hours prn for pain, Start date: 12/31/11 7:55:00, Duration: 30 day, Stop date: 01/30/12 7:54:00 IV No Longer Active Mougouris 12/31/2011 [facility] gabapentin 300 mg oral capsule 300 mg, 1 cap, PO, BID, Substitution Allowed PO Active 12/31/2011 [facility] morphine Sulfate 4 mg, Route: IV, ONCE, Start date: 12/31/11 3:54:00, Stop date: 12/31/11 3:54:00 IV No Longer Active Stepan 12/31/2011 [facility] atropine 0.5 mg, 5 mL, Route: IVP, Drug form: INJ, PRN, PRN Bradycardia, Start date: 12/31/11 3:50:00, Duration: 30 day, Stop date: 01/30/12 4:49:00 IVP No Longer Active Jaspreet 12/31/2011 [facility] nitroglycerin 0.4 mg sublingual tablet 0.4 mg, 1 tab, Route: SL, Drug form: TAB, Q5Min, PRN Chest Pain, Start date: 12/31/11 3:50:00, Duration: 30 day, Stop date: 01/30/12 4:49:00 SL No Longer Active Jaspreet 12/31/2011 [facility] Sodium Chloride 0.9% IV 1,000 mL 1,000 mL, Rate: 125 ml/hr, Infuse over: 8 hr, Route: IV, Total Volume: 1,000, Start date: 12/31/11 3:45:00, Duration: 30 day, Stop date: 01/30/12 3:44:00 IV No Longer Active Jaspreet 12/31/2011 [facility] Saline Flush 0.9% 5 ml, Route: IVP, Drug Form: INJ, PRN, PRN Line Flush, Start date: 12/31/11 3:45:00, Duration: 30 day, Stop date: 01/30/12 4:44:00 IVP No Longer Active Mougouris 12/31/2011 [facility] ondansetron 4 mg, 2 mL, Route: IVP, Drug form: INJ, Q6H, PRN Nausea & Vomiting, Start date: 12/31/11 3:45:00, Duration: 30 day, Stop date: 01/30/12 3:44:00 IVP No Longer Active Jaspreet 12/31/2011 [facility] morphine Sulfate 4 mg, 2 mL, R oute: IVP, Drug form: INJ, Q4H, PRN Pain Score 7-10, Start date: 12/31/11 3:45:00, Duration: 30 day, Stop date: 01/30/12 3:44:00 IVP No Longer Active Mauro 12/31/2011 [facility] Zofran 4 mg, Route: IVP, Drug form: INJ, ONCE, Start date: 12/31/11 2:33:00, Stop date: 12/31/11 2:33:00 IVP No Longer Active Stepan 12/31/2011 [facility] NovoLog 100 units/mL subcutaneous solution SUB-Q, Substitution Allowed SUB-Q Active 12/31/2011 [facility] Levemir 100 units/mL subcutaneous solution 20 units, SUB-Q, Daily, Substitution Allowed SUB-Q Active Erlin 12/31/2011 [facility] gabapentin 300 mg oral capsule 300 mg, 1 cap, PO, BID, Substitution Allowed PO Active 12/31/2011 [facility] metFORmin 1000 mg oral tablet, extended release 1,000 mg, 1 tab, PO, BID, 60 tab, Substitution Allowed, ERTAB PO Active 12/31/2011 [facility] furosemide 40 mg oral tablet 4 0 mg, 1 tab, PO, Daily, 30 tab, Substitution Allowed, TAB PO Active ug 12/31/2011 [facility] pravastatin 80 mg oral tablet 80 mg, 1 tab, PO, Daily, 30 tab, Substitution Allowed, TAB PO Active 12/31/2011 [facility] losartan 100 mg oral tablet 10 0 mg, 1 tab, PO, Daily, 30 tab, Substitution Allowed, TAB PO No Longer Active 12/31/2011 [facility] gemfibrozil 600 mg oral tablet 600 mg, 1 tab, PO, BID, 60 tab, Substitution Allowed, TAB PO Active 12/31/2011 [facility] diltiazem 240 mg/24 hours oral tablet, extended releas e 240 mg, 1 tab, PO, Daily, 30 tab, Substitution Allowed, ERTAB PO Active 12/31/2011 [facility] clonidine 0.2 mg oral tablet 0 .2 mg, PO, BID, 60 tab, Substitution Allowed PO Active ug12/31/2011 [facility] morphine Sulfate 4 mg, Route: IVP, ONCE, Start date: 12/30/11 23:48:00, Stop date: 12/30/11 23:48:00 IVP No Longer Active Stepan 12/31/2011 [facility] sodium bicarbonate 8.4% 50 mEq , 50 mL, Route: IVP, Drug Form: INJ, ONCE, STAT, Start date: 12/30/11 22:48:00, Stop date: 12/30/11 22:48:00 IVP No Longer Active Stepan 12/31/2011 [facility] Insulin regular 10 unit, 0.1 m L, Route: IVP, Drug form: INJ, ONCE, Priority: STAT, Start date: 12/30/11 22:47:00, Stop date: 12/30/11 22:47:00 IVP No Longer Active Stepan 12/31/2011 [facility] d50 syringe Route: IVP, Drug F orm: INJ, ONCE, Start date: 12/30/11 22:46:00, Stop date: 12/30/11 22:46:00 IVP No Longer Active Stepan 12/31/2011 [facility] Kayexalate 30 gm, 120 mL, Rout e: PO, Drug form: SUSP, ONCE, Start date: 12/30/11 22:45:00, Stop date: 12/30/11 22:45:00 PO No Longer Active Stepan 12/31/2011 [facility] morphine Sulfate 4 mg, Route: IVP, ONCE, Priority: STAT, Start date: 12/30/11 20:44:00, Stop date: 12/30/11 20:44:00 IVP No Longer Active Stepan 12/31/2011 [facility] Zofran 4 mg, Route: IVP, Drug form: INJ, ONCE, Priority: STAT, Start date: 12/30/11 20:44:00, Stop date: 12/30/11 20:44:00 IVP No Longer Active Stepan 12/31/2011 [facility] Allergies, Adverse Reactions, Alerts Substance Category Reaction Severity Reaction type Status Date Reported Comments Source NIFEdipine Assertion Drug allergy Active [facility] Immunizations Immunization Date Given Site Status Last Updated Comments Source pneumococcal 13-valent vaccine 06/06/2016 Right deltoid completed Carol Azar [facility] influenza virus vaccine, inactivated<sup>1</sup> 08/02/2014 completed Rani Admin Note: received a t karie johansen [facility], [place] influenza virus vaccine, inactivated 08/10/2013 Right deltoid completed Moo [facility], [place] influenza virus vaccine, inactivated 08/10/2013 completed H ail [facility] Hx influenza vaccine-unspecified 11/03/2012 completed U raquel [facility] Hx influenza vaccine-unspecified 11/03/2012 completed U raquel [facility] Hx pneumococcal vaccine 2011 completed Vee garcía [facility] [place] H[place] pneumococcal vaccine 2011 completed Vee garcía [facility] [place] influenza virus vaccine, inactivated 01/02/2012 Not Given V each [facility] influenza virus vaccine, inactivated 01/01/2012 Right deltoid completed Samir [facility] influenza virus vaccine, inactivated 01/01/2012 completed V each [facility] Results Order Name Results Value Reference Range Date Interpretation Comments Source CHEM PANEL Calcium Lvl 7.7 8.5 - 10.5 06/10/2016 [facility] CHEM PANEL Chloride Lvl 104 95 - 109 06/10/2016 [facility] CHEM PANEL CO2 27 24 - 32 06/10/2016 [facility] CHEM PANEL Potassium Lvl 4.1 3.5 - 5.1 06/10/2016 [facility] CHEM PANEL Sodium Lvl 139 135 - 145 06/10/2016 [facility] CHEM PANEL BUN 23 7 - 22 06/10/2016 [facility] CHEM [facility] Creatinine Lvl 6.24 0.50 - 1.40 06/10/2016 [facility] CHEM [facility] Glucose Lvl 160 70 - 99 06/10/2016 [facility] CHEM PANEL eGFR 7 06/10/2016 Result Comment: The eGFR is calculated using the CKD-EPI formula. In most young, healthy individuals the eGFR will be >90 mL/min/1.73m2. The eGFR declines with age. An eGFR of 60-89 may be normal in some populations, particularly the elderly, for whom the CKD-EPI formula has not been extensively validated. Use of the eGFR is not recommended in the following populations:

Individuals with unstable creatinine concentrations, including patients and those with serious co-morbid conditions.

Patients with extremes in muscle mass or diet.

The data above are obtained from the National Kidney Disease Education Program (NKDEP) which additionally recommends that when the eGFR is used in patients with extremes of body mass index for purposes of drug dosing, the eGFR should be multiplied by the estimated BMI. [facility] CHEM PANEL AGAP 12.1 10.0 - 20.0 06/10/2016 [facility] CHEM PANEL Calcium Lvl 7.6 8.5 - 10.5 06/09/2016 [facility] CHEM PANEL Chloride Lvl 100 95 - 109 06/09/2016 [facility] CHEM PANEL Sodium Lvl 136 135 - 145 06/09/2016 [facility] CHEM PANEL CO2 25 24 - 32 06/09/2016 [facility] CHEM PANEL Potassium Lvl 4.3 3.5 - 5.1 06/09/2016 [facility] CHEM PANEL Creatinine Lvl 4.99 0.50 - 1.40 06/09/2016 [facility] CHEM PANEL BUN 15 7 - 22 06/09/2016 [facility] CHEM PANEL Glucose Lvl 139 70 - 99 06/09/2016 [facility] CHEM PANEL AGAP 15.3 10.0 - 20.0 06/09/2016 [facility] CHEM PANEL eGFR 9 06/09/2016 Result Comment: The eGFR is calculated using the CKD-EPI formula. In most young, healthy individuals the eGFR will be >90 mL/min/1.73m2. The eGFR declines with age. An eGFR of 60-89 may be normal in some populations, particularly the elderly, for whom the CKD-EPI formula has not been extensively validated. Use of the eGFR is not recommended in the following populations:

Individuals with unstable creatinine concentrations, including patients and those with serious co-morbid conditions.

Patients with extremes in muscle mass or diet.

The data above are obtained from the National Kidney Disease Education Program (NKDEP) which additionally recommends that when the eGFR is used in patients with extremes of body mass index for purposes of drug dosing, the eGFR should be multiplied by the estimated BMI. [facility] HEMATOLOGY Hct 27.4 36.0 - 48.0 06/09/2016 [facility] HEMATOLOGY RDW 17.6 11.5 - 14.5 06/09/[address] [facility] MCHC 32.5 32.0 - 36.0 06/09/[address] [facility] MCH 31.3 27.0 - 31.0 06/09/2016 [facility] HEMATOLOGY MCV 96.2 80.0 - 98.0 06/09/2016 [facility] HEMATOLOGY MPV 7.4 7.4 - 10.4 06/09/2016 [facility] HEMATOLOGY Platelet 209 133 - 450 06/09/2016 [facility] HEMATOLOGY WBC 7.2 3.7 - 10.4 06/09/[address] [facility] Hgb 8.9 12.0 - 16.0 06/09/[address] [facility] RBC 2.85 4.20 - 5.40 06/09/2016 [facility] HEMATOLOGY Basophils 0.6 0.0 - 1.0 06/09/2016 [facility] HEMATOLOGY Eosinophils 3.7 0.0 - 4.0 06/09/2016 [facility] HEMATOLOGY Monocytes 6.4 2.0 - 12.0 06/09/2016 [facility] HEMATOLOGY Lymphocytes # 0.7 1.0 - 5.5 06/09/2016 [facility] HEMATOLOGY Segs-Bands # 5.7 1.5 - 8.1 06/09/2016 [facility] HEMATOLOGY Eosinophils # 0.3 0.0 - 0.5 06/09/2016 [facility] HEMATOLOGY Monocytes # 0.5 0.0 - 0.8 06/09/2016 [facility] HEMATOLOGY Segs 79.6 45.0 - 75.0 06/09/2016 [facility] HEMATOLOGY Lymphocytes 9.7 20.0 - 40.0 06/09/2016 [facility] IMMUNOLOGY Hep Bs Ag Negat sue *NA* (06/05/16 10:32 PM) Negative 06/06/2016 [facility] CARDIAC ENZYMES BNP 68 <=100 pg/mL 06/05/2016 [facility] CARDIAC ENZYMES CK MB 1.3 0.5 - 3.6 06/05/2016 [facility] CARDIAC ENZYMES Troponin-I <0.015 ng/mL 0.00 - 0.40 06/05/2016 [facility] CARDIAC ENZYMES Total CK 38 12 - 191 06/05/2016 [facility] CARDIAC ENZYMES CK MB Index 3.4 0.0 - 2.5 06/05/2016 [facility] CHEM PANEL eGFR 6 06/05/2016 Result Comment: The eGFR is calculated using the CKD-EPI formula. In most young, healthy individuals the eGFR will be >90 mL/min/1.73m2. The eGFR declines with age. An eGFR of 60-89 may be normal in some populations, particularly the elderly, for whom the CKD-EPI formula has not been extensively validated. Use of the eGFR is not recommended in the following populations:

Individuals with unstable creatinine concentrations, including patients and those with serious co-morbid conditions.

Patients with extremes in muscle mass or diet.

The data above are obtained from the National Kidney Disease Education Program (NKDEP) which additionally recommends that when the eGFR is used in patients with extremes of body mass index for purposes of drug dosing, the eGFR should be multiplied by the estimated BMI. [facility] CHEM PANEL AST 12 0 - 37 06/05/2016 [facility] CHEM PANEL Albumin Lvl 3.1 3.5 - 5.0 06/05/2016 [facility] CHEM PANEL ALT 19 0 - 65 06/05/2016 [facility] CHEM PANEL AGAP 23.6 10.0 - 20.0 06/05/2016 [facility] CHEM PANEL Alk Phos 131 39 - 136 06/05/2016 [facility] CHEM PANEL Bili Total 0.2 0.2 - 1.3 06/05/2016 [facility] CHEM PANEL Chloride Lvl 97 95 - 109 06/05/2016 [facility] CHEM PANEL Calcium Lvl 7.4 8.5 - 10.5 06/05/2016 [facility] CHEM PANEL Total Protein 6.7 6.4 - 8.4 06/05/2016 [facility] CHEM PANEL CO2 26 24 - 32 06/05/2016 [facility] CHEM PANEL A/G Ratio 0.9 0.7 - 1.6 06/05/2016 [facility] CHEM PANEL B/C Ratio 6 6 - 25 06/05/2016 [facility] CHEM PANEL Globulin 3.6 2.7 - 4.2 06/05/2016 [facility] CHEM PANEL Sodium Lvl 142 135 - 145 06/05/2016 [facility] CHEM PANEL Potassium Lvl 4.6 3.5 - 5.1 06/05/2016 [facility] CHEM PANEL Creatinine Lvl 6.76 0.50 - 1.40 06/05/2016 [facility] CHEM PANEL Glucose Lvl 197 70 - 99 06/05/2016 Result Comment: Specimen grossly lipemic , Lipoclear procedure performed 06/05/2016 07:44, [facility] CHEM PANEL BUN 39 7 - 22 06/05/2016 [facility] CHEM PANEL Phosphorus 6.6 2.5 - 4.5 06/05/2016 [facility] CHEM PANEL Magnesium Lvl 2.0 1.8 - 2.4 06/05/2016 [facility] CHEM PANEL Lipase Lvl 353 73 - 393 06/05/2016 [facility] HEMATOLOGY MPV 7.5 7.4 - 10.4 06/05/2016 [facility] HEMATOLOGY Platelet 201 133 - 450 06/05/2016 [facility] HEMATOLOGY MCH 31.7 27.0 - 31.0 06/05/2016 [facility] HEMATOLOGY RDW 16.3 11.5 - 14.5 06/05/2016 [facility] HEMATOLOGY MCHC 33.3 32.0 - 36.0 06/05/2016 [facility] HEMATOLOGY RBC 3.02 4.20 - 5.40 06/05/[address] [facility] MCV 95.3 80.0 - 98.0 06/05/[address] [facility] Hgb 9.6 12.0 - 16.0 06/05/[address] [facility] Hct 28.8 36.0 - 48.0 06/05/[address] [facility] WBC 10.0 3.7 - 10.4 06/05/[address] [facility] Monocytes # 0.7 0.0 - 0.8 06/05/[address] [facility] RBC Morph Nicolasa l (06/05/16 7:05 AM) 06/05/[address] [facility] Plt Morph Nicolasa l (06/05/16 7:05 AM) 06/05/[address] [facility] Segs 66.4 45.0 - 75.0 06/05/[address] [facility] Basophils 0.5 0.0 - 1.0 06/05/[address] [facility] Segs-Bands # 6.7 1.5 - 8.1 06/05/[address] [facility] Monocytes 6.6 2.0 - 12.0 06/05/[address] [facility] Eosinophils 3.1 0.0 - 4.0 06/05/[address] [facility] Lymphocytes 23.4 20.0 - 40.0 06/05/[address] [facility] Eosinophils # 0.3 0.0 - 0.5 06/05/[address] [facility] Lymphocytes # 2.3 1.0 - 5.5 06/05/2016 [facility] CHEM PANEL eGFR 5 04/22/2015 <sup>1</sup>Result Comment: The eGFR is calculated using the CKD-EPI formula. In most young, healthy individuals the eGFR will be >90 mL/min/1.73m2. The eGFR declines with age. An eGFR of 60-89 may be normal in some populations, particularly the elderly, for whom the CKD-EPI formula has not been extensively validated. Use of the eGFR is not recommended in the following populations:& lt;br/>
Individuals with unstable creatinine concentrations, including patients and those with serious co-morbid conditions.

Patients with extremes in muscle mass or diet.

The data above are obtained from the National Kidney Disease Education Program (NKDEP) which additionally recommends that when the eGFR is used in patients with extremes of body mass index for purposes of drug dosing, the eGFR should be multiplied by the estimated BMI. [facility] CHEM PANEL CO2 24 24 - 32 04/22/2015 [facility] CHEM PANEL Creatinine Lvl 8.8 0.5 - 1.4 04/22/2015 [facility] CHEM PANEL Calcium Lvl 8.2 8.5 - 10.5 04/22/2015 [facility] CHEM PANEL AGAP 17.2 10.0 - 20.0 04/22/2015 [facility] CHEM PANEL BUN 68 7 - 22 04/22/2015 [facility] CHEM PANEL Glucose Lvl 118 70 - 99 04/22/2015 <sup>4</sup>Interpretive Data: Adult ref erence range values reflect the clinical guidelines
of the [place] [employer]. [facility] CHEM PANEL Sodium Lvl 134 135 - 145 04/22/2015 [facility] CHEM PANEL Potassium Lvl 5.2 3.5 - 5.1 04/22/2015 [facility] CHEM PANEL Chloride Lvl 98 95 - 109 04/22/2015 [facility] HEMATOLOGY MPV 7.6 7.4 - 10.4 04/22/2015 [facility] HEMATOLOGY MCV 98.5 80.0 - 98.0 04/22/2015 [facility] HEMATOLOGY Platelet 158 133 - 450 04/22/2015 [facility] HEMATOLOGY RDW 19.1 11.5 - 14.5 04/22/[address] [facility] MCHC 33.3 32.0 - 36.0 04/22/2015 [facility] HEMATOLOGY MCH 32.8 27.0 - 31.0 04/22/2015 [facility] HEMATOLOGY Hct 24.7 36.0 - 48.0 04/22/[address] [facility] Hgb 8.2 12.0 - 16.0 04/22/2015 [facility] HEMATOLOGY RBC 2.51 4.20 - 5.40 04/22/2015 [facility] HEMATOLOGY WBC 6.8 3.7 - 10.4 04/22/2015 [facility] HEMATOLOGY Lymphocytes 19.5 20.0 - 40.0 04/22/2015 [facility] HEMATOLOGY Monocytes 7.8 2.0 - 12.0 04/22/2015 [facility] HEMATOLOGY Segs-Bands # 4.7 1.5 - 8.1 04/22/2015 [facility] HEMATOLOGY Basophils 0.3 0.0 - 1.0 04/22/2015 [facility] HEMATOLOGY Eosinophils 4.4 0.0 - 4.0 04/22/2015 [facility] HEMATOLOGY Lymphocytes # 1.3 1.0 - 5.5 04/22/2015 [facility] HEMATOLOGY Monocytes # 0.5 0.0 - 0.8 04/22/2015 [facility] HEMATOLOGY Eosinophils # 0.3 0.0 - 0.5 04/22/2015 [facility] HEMATOLOGY Segs 68.0 45.0 - 75.0 04/22/2015 [facility] ELECTROLYTES AGAP 22.1 10.0 - 20.0 04/17/2015 [facility] ELECTROLYTES eGFR 6 04/17/2015 <sup>2</sup>Result Comment: The eGFR is calculated using the CKD-EPI formula. In most young, healthy individuals the eGFR will be >90 mL/min/1.73m2. The eGFR declines with age. An eGFR of 60-89 may be normal in some populations, particularly the elderly, for whom the CKD-EPI formula has not been extensively validated. Use of the eGFR is not recommended in the following populations:& lt;br/>
Individuals with unstable creatinine concentrations, including patients and those with serious co-morbid conditions.

Patients with extremes in muscle mass or diet.

The data above are obtained from the National Kidney Disease Education Program (NKDEP) which additionally recommends that when the eGFR is used in patients with extremes of body mass index for purposes of drug dosing, the eGFR should be multiplied by the estimated BMI. [facility] ELECTROLYTES BUN 42 7 - 22 04/17/2015 [facility] Glucose Lvl 86 70 - 99 04/17/2015 <sup>5</sup>Interpretive Data: Adult ref erence range values reflect the clinical guidelines
of the [place] [employer]. [facility] ELECTROLYTES Calcium Lvl 8.2 8.5 - 10.5 04/17/2015 [facility] ELECTROLYTES Creatinine Lvl 7.6 0.5 - 1.4 04/17/2015 [facility] ELECTROLYTES CO2 25 24 - 32 04/17/2015 [facility] ELECTROLYTES Potassium Lvl 5.1 3.5 - 5.1 04/17/2015 [facility] ELECTROLYTES Sodium Lvl 132 135 - 145 04/17/2015 [facility] ELECTROLYTES Chloride Lvl 90 95 - 109 04/17/[address] [facility] MPV 8.6 7.4 - 10.4 04/17/2015 [facility] RBC 3.11 4.20 - 5.40 04/17/2015 [facility] HEMATOLOGY Hgb 10.2 12.0 - 16.0 04/17/2015 [facility] HEMATOLOGY MCHC 33.4 32.0 - 36.0 04/17/2015 [facility] HEMATOLOGY MCH 32.9 27.0 - 31.0 04/17/2015 [facility] HEMATOLOGY Hct 30.6 36.0 - 48.0 04/17/2015 [facility] HEMATOLOGY MCV 98.3 80.0 - 98.0 04/17/2015 [facility] HEMATOLOGY RDW 20.0 11.5 - 14.5 04/17/2015 [facility] HEMATOLOGY Platelet 188 133 - 450 04/17/2015 [facility] HEMATOLOGY WBC 9.7 3.7 - 10.4 04/17/2015 [facility] HEMATOLOGY Eosinophils 3.0 0.0 - 4.0 04/17/2015 [facility] HEMATOLOGY Basophils 0.6 0.0 - 1.0 04/17/2015 [facility] HEMATOLOGY Segs-Bands # 6.5 1.5 - 8.1 04/17/2015 [facility] HEMATOLOGY RBC Morph Nicolasa l (04/17/15 4:33 AM) 04/17/2015 [facility] HEMATOLOGY Monocytes 7.4 2.0 - 12.0 04/17/2015 [facility] HEMATOLOGY Monocytes # 0.7 0.0 - 0.8 04/17/2015 [facility] HEMATOLOGY Eosinophils # 0.3 0.0 - 0.5 04/17/[address] [facility] Lymphocytes # 2.2 1.0 - 5.5 04/17/[address] [facility] Plt Morph Nicolasa l (04/17/15 4:33 AM) 04/17/2015 [facility] HEMATOLOGY Segs 66.5 45.0 - 75.0 04/17/2015 [facility] HEMATOLOGY Lymphocytes 22.5 20.0 - 40.0 04/17/2015 [facility] HEMATOLOGY Basophils # 0.1 0.0 - 0.2 04/17/2015 [facility] HEMATOLOGY Segs-Bands # 4.4 1.5 - 8.1 04/16/2015 [facility] HEMATOLOGY Basophils 0.5 0.0 - 1.0 04/16/2015 [facility] HEMATOLOGY Monocytes # 0.5 0.0 - 0.8 04/16/2015 [facility] HEMATOLOGY Eosinophils # 0.2 0.0 - 0.5 04/16/2015 [facility] HEMATOLOGY Lymphocytes # 1.7 1.0 - 5.5 04/16/2015 [facility] HEMATOLOGY Eosinophils 3.5 0.0 - 4.0 04/16/[address] [facility] Monocytes 7.2 2.0 - 12.0 04/16/[address] [facility] Segs 64.1 45.0 - 75.0 04/16/[address] [facility] Lymphocytes 24.7 20.0 - 40.0 04/16/[address] [facility] MPV 7.4 7.4 - 10.4 04/16/[address] [facility] Platelet 265 133 - 450 04/16/[address] [facility] RDW 20.3 11.5 - 14.5 04/16/[address] [facility] MCHC 32.9 32.0 - 36.0 04/16/[address] [facility] MCV 99.0 80.0 - 98.0 04/16/[address] [facility] MCH 32.6 27.0 - 31.0 04/16/[address] [facility] Hct 32.3 36.0 - 48.0 04/16/[address] [facility] Hgb 10.6 12.0 - 16.0 04/16/[address] [facility] RBC 3.26 4.20 - 5.40 04/16/[address] [facility] WBC 6.8 3.7 - 10.4 04/16/[address] [facility] Sed Rate 53 0 - 20 04/16/2015 [facility] IMMUNOLOGY C-REACTIVE PROTEIN 11.1 <=2.9 mg/L 04/16/2015 [facility] CHEM PANEL Lipase Lvl 258 73 - 393 04/15/2015 [facility] CHEM PANEL eGFR 12 04/15/2015 <sup>3</sup>Result Comment: The eGFR is calculated using the CKD-EPI formula. In most young, healthy individuals the eGFR will be >90 mL/min/1.73m2. The eGFR declines with age. An eGFR of 60-89 may be normal in some populations, particularly the elderly, for whom the CKD-EPI formula has not been extensively validated. Use of the eGFR is not recommended in the following populations:& lt;br/>
Individuals with unstable creatinine concentrations, including patients and those with serious co-morbid conditions.

Patients with extremes in muscle mass or diet.

The data above are obtained from the National Kidney Disease Education Program (NKDEP) which additionally recommends that when the eGFR is used in patients with extremes of body mass index for purposes of drug dosing, the eGFR should be multiplied by the estimated BMI. [facility] CHEM PANEL Bili Total 0.4 0.2 - 1.3 04/15/2015 [facility] CHEM PANEL AST 16 0 - 37 04/15/2015 [facility] CHEM PANEL Alk Phos 130 39 - 136 04/15/2015 [facility] CHEM PANEL Glucose Lvl 84 70 - 99 04/15/2015 <sup>6</sup>Interpretive Data: Adult ref erence range values reflect the clinical guidelines
of the [place] [employer]. [facility] CHEM PANEL Albumin Lvl 3.9 3.5 - 5.0 04/15/2015 [facility] CHEM PANEL Total Protein 8.7 6.4 - 8.4 04/15/2015 [facility] CHEM PANEL BUN 17 7 - 22 04/15/2015 [facility] CHEM PANEL ALT 29 0 - 65 04/15/2015 [facility] CHEM PANEL Creatinine Lvl 4.0 0.5 - 1.4 04/15/2015 [facility] CHEM PANEL CO2 36 24 - 32 04/15/2015 [facility] CHEM PANEL Calcium Lvl 8.5 8.5 - 10.5 04/15/2015 [facility] CHEM PANEL Chloride Lvl 93 95 - 109 04/15/2015 [facility] CHEM PANEL Potassium Lvl 4.2 3.5 - 5.1 04/15/2015 [facility] CHEM PANEL Sodium Lvl 135 135 - 145 04/15/2015 [facility] CHEM PANEL AGAP 10.2 10.0 - 20.0 04/15/2015 [facility] CHEM PANEL B/C Ratio 4 6 - 25 04/15/2015 [facility] CHEM PANEL Globulin 4.8 2.0 - 4.0 04/15/2015 [facility] CHEM PANEL A/G Ratio 0.8 0.7 - 1.6 04/15/2015 [facility] HEMATOLOGY PT 12.6 12.0 - 14.7 04/15/2015 [facility] HEMATOLOGY PTT 36.1 22.9 - 35.8 04/15/2015 <sup>8</sup>Interpretive Data: Heparin T herapeutic Range: 57 - 92 Seconds [facility] HEMATOLOGY INR 0.94 0.85 - 1.17 04/15/2015 <sup>7</sup>Interpretive Data: RECOMMEND ED RANGES FOR PROTIME INR:
2.0-3.0 for most medical and surgical thromboembolic states.
2.5-3.5 for artificial heart valves and recurrent embolism.

INR SHOULD BE USED ONLY FOR PATIENTS ON STABLE ANTICOAGULANT THERAPY. [facility] IMMUNOLOGY Hep Bs Ag Negat sue *NA* (04/15/15 1:40 PM) Negative 04/15/2015 [facility] CHEM PANEL Lipase Lvl 212 73 - 393 01/11/2015 [facility] CHEM PANEL eGFR 6 01/11/2015 <sup>1</sup>Result Comment: The eGFR is calculated using the CKD-EPI formula. In most young, healthy individuals the eGFR will be >90 mL/min/1.73m2. The eGFR declines with age. An eGFR of 60-89 may be normal in some populations, particularly the elderly, for whom the CKD-EPI formula has not been extensively validated. Use of the eGFR is not recommended in the following populations:& lt;br/>
Individuals with unstable creatinine concentrations, including patients and those with serious co-morbid conditions.

Patients with extremes in muscle mass or diet.

The data above are obtained from the National Kidney Disease Education Program (NKDEP) which additionally recommends that when the eGFR is used in patients with extremes of body mass index for purposes of drug dosing, the eGFR should be multiplied by the estimated BMI. [facility] CHEM PANEL Alk Phos 141 39 - 136 01/11/2015 [facility] CHEM PANEL AST 9 0 - 37 01/11/2015 [facility] CHEM PANEL Albumin Lvl 3.5 3.5 - 5.0 01/11/2015 [facility] CHEM PANEL ALT 26 0 - 65 01/11/2015 [facility] CHEM PANEL Total Protein 7.3 6.4 - 8.4 01/11/2015 [facility] CHEM PANEL Glucose Lvl 93 70 - 99 01/11/2015 <sup>2</sup>Interpretive Data: Adult ref erence range values reflect the clinical guidelines
of the [place] [employer]. [facility] CHEM PANEL BUN 57 7 - 22 01/11/2015 [facility] CHEM PANEL Bili Total 0.5 0.2 - 1.3 01/11/2015 [facility] CHEM PANEL Creatinine Lvl 7.1 0.5 - 1.4 01/11/2015 [facility] CHEM PANEL CO2 24 24 - 32 01/11/2015 [facility] CHEM PANEL Calcium Lvl 7.9 8.5 - 10.5 01/11/2015 [facility] CHEM PANEL Potassium Lvl 4.9 3.5 - 5.1 01/11/2015 [facility] CHEM PANEL Sodium Lvl 140 135 - 145 01/11/2015 [facility] CHEM PANEL Chloride Lvl 102 95 - 109 01/11/2015 [facility] CHEM PANEL A/G Ratio 0.9 0.7 - 1.6 01/11/2015 [facility] CHEM PANEL Globulin 3.8 2.0 - 4.0 01/11/2015 [facility] CHEM PANEL AGAP 18.9 10.0 - 20.0 01/11/2015 [facility] CHEM PANEL B/C Ratio 8 6 - 25 01/11/2015 [facility] HEMATOLOGY MCH 32.0 27.0 - 31.0 01/11/2015 [facility] HEMATOLOGY MCHC 33.0 32.0 - 36.0 01/11/2015 [facility] HEMATOLOGY MCV 97.1 80.0 - 98.0 01/11/2015 [facility] HEMATOLOGY RDW 16.3 11.5 - 14.5 01/11/2015 [facility] HEMATOLOGY Hct 32.3 36.0 - 48.0 01/11/2015 [facility] HEMATOLOGY Platelet 185 133 - 450 01/11/2015 [facility] HEMATOLOGY MPV 7.1 7.4 - 10.4 01/11/2015 [facility] HEMATOLOGY Hgb 10.7 12.0 - 16.0 01/11/2015 [facility] HEMATOLOGY RBC 3.33 4.20 - 5.40 01/11/2015 [facility] HEMATOLOGY WBC 6.4 3.7 - 10.4 01/11/2015 [facility] HEMATOLOGY Eosinophils # 0.4 0.0 - 0.5 01/11/2015 [facility] HEMATOLOGY Monocytes # 0.5 0.0 - 0.8 01/11/2015 [facility] HEMATOLOGY Lymphocytes # 1.4 1.0 - 5.5 01/11/2015 [facility] HEMATOLOGY Monocytes 8.3 2.0 - 12.0 01/11/2015 [facility] HEMATOLOGY Eosinophils 5.8 0.0 - 4.0 01/11/2015 [facility] HEMATOLOGY Segs-Bands # 4.0 1.5 - 8.1 01/11/2015 [facility] HEMATOLOGY Basophils 0.3 0.0 - 1.0 01/11/2015 [facility] HEMATOLOGY Lymphocytes 22.4 20.0 - 40.0 01/11/2015 [facility] HEMATOLOGY Segs 63.2 45.0 - 75.0 01/11/2015 [facility] REFERENCE LAB RESULTS Test Name HLA TYPING 11/06/2014 [facility] REFERENCE LAB RESULTS HLA Misc Test See Report 20 (11/06/14 1:17 PM) 11/06/2014 <sup>20</sup>Result Comment: Reference lab results scanned in [facility]. Results displayed in [id number] Lab Documents (Imaged) under date/time results were scanned. Report sent for scanning on 11/19/2014. [facility] ANEMIA STUDY Iron 108 30 - 160 11/06/2014 [facility] ANEMIA STUDY TIBC 282 228 - 428 11/06/2014 [facility] ANEMIA STUDY UIBC 174 110 - 370 11/06/2014 [facility] ANEMIA STUDY % Satur Fe 38 12 - 57 11/06/2014 [facility] ANEMIA STUDY Ferritin Lvl 1064 5 - 204 11/06/2014 [facility] BLOOD BANK RESULTS ABO/Rh O POS 11/06/2014 [facility] BLOOD BANK RESULTS ABO/Rh O POS 11/06/2014 [facility] CHEM PANEL Vitamin D, 25-OH, Total 3 3 30 - 100 11/06/2014 <sup>3</sup>Interpretive Data: Reference range is based on recommendations in the Endocrine
Society Clinical Practice Guideline (J Clin Endocrinol Metab
2010;96:2602-9129) [facility] CHEM PANEL Uric Acid 3.5 2.5 - 7.0 11/06/2014 [facility] CHEM PANEL Phosphorus 5.1 2.5 - 4.5 11/06/2014 [facility] CHEM PANEL Magnesium Lvl 2.3 1.8 - 2.4 11/06/2014 [facility] CHEM PANEL eGFR 8 11/06/2014 <sup>1</sup>Result Comment: The eGFR is calculated using the CKD-EPI formula. In most young, healthy individuals the eGFR will be >90 mL/min/1.73m2. The eGFR declines with age. An eGFR of 60-89 may be normal in some populations, particularly the elderly, for whom the CKD-EPI formula has not been extensively validated. Use of the eGFR is not recommended in the following populations:& lt;br/>
Individuals with unstable creatinine concentrations, including patients and those with serious co-morbid conditions.

Patients with extremes in muscle mass or diet.

The data above are obtained from the National Kidney Disease Education Program (NKDEP) which additionally recommends that when the eGFR is used in patients with extremes of body mass index for purposes of drug dosing, the eGFR should be multiplied by the estimated BMI. [facility] CHEM PANEL Bili Total 0.4 0.2 - 1.3 11/06/2014 [facility] CHEM PANEL ALT 26 0 - 65 11/06/2014 [facility] CHEM PANEL AST 20 0 - 37 11/06/2014 [facility] CHEM PANEL Alk Phos 179 39 - 136 11/06/2014 [facility] CHEM PANEL Albumin Lvl 4.0 3.5 - 5.0 11/06/2014 [facility] CHEM PANEL Calcium Lvl 8.9 8.5 - 10.5 11/06/2014 [facility] CHEM PANEL CO2 30 24 - 32 11/06/2014 [facility] CHEM PANEL Total Protein 8.2 6.4 - 8.4 11/06/2014 [facility] CHEM PANEL Glucose Lvl 69 70 - 99 11/06/2014 <sup>2</sup>Interpretive Data: Adult ref erence range values reflect the clinical guidelines
of the [place] [employer]. [facility] CHEM PANEL Chloride Lvl 99 95 - 109 11/06/2014 [facility] CHEM PANEL Potassium Lvl 5.2 3.5 - 5.1 11/06/2014 [facility] CHEM PANEL Creatinine Lvl 5.5 0.5 - 1.4 11/06/2014 [facility] CHEM PANEL BUN 45 7 - 22 11/06/2014 [facility] CHEM PANEL Sodium Lvl 137 135 - 145 11/06/2014 [facility] CHEM PANEL A/G Ratio 1.0 0.7 - 1.6 11/06/2014 [facility] CHEM PANEL B/C Ratio 8 6 - 25 11/06/2014 [facility] CHEM PANEL Globulin 4.2 2.0 - 4.0 11/06/2014 [facility] CHEM PANEL AGAP 13.2 10.0 - 20.0 11/06/2014 [facility] DRUG SCREEN Propoxyphn Scr Nega tive (11/06/14 12:07 PM) Negative 11/06/2014 [facility] DRUG SCREEN PCP Scr Nega tive (11/06/14 12:07 PM) Negative 11/06/2014 [facility] DRUG SCREEN Opiate Scr Nega tive (11/06/14 12:07 PM) Negative 11/06/2014 [facility] DRUG SCREEN Methadone Scr Nega tive (11/06/14 12:07 PM) Negative 11/06/2014 [facility] DRUG SCREEN Cutoff Values See Note 4 (11/06/14 12:07 PM) 11/06/2014 <sup>4</sup>Interpretive Brent a: Cutoff (lowest detectable by EIA) values for Serum Drugscreen:
THC and PCP: 1 ng/mL
All others: 20 ng/mL

Cutoff (lowest detectable by GC/MS) value for confirmation:
THC and PCP: 1 ng/mL
Benzodiazepines: 5 ng/ml
All others: 10 ng/ml

Test performed by [facility]
[address] [place] [address]
[place], [place] [id number] [place] [address] DRUG SCREEN Lore Scr Nega tive (11/06/14 12:07 PM) Negative 11/06/2014 [facility] DRUG SCREEN Cannab Scr Nega tive (11/06/14 12:07 PM) Negative 11/06/2014 [facility] DRUG SCREEN Benzodiaz Scr Nega tive (11/06/14 12:07 PM) Negative 11/06/2014 [facility] DRUG SCREEN Cocaine Scr Nega tive (11/06/14 12:07 PM) Negative 11/06/2014 [facility] DRUG SCREEN Amph Scr Nega tive (11/06/14 12:07 PM) Negative 11/06/2014 [facility] HEMATOLOGY Monocytes # 0.6 0.0 - 0.8 11/06/2014 [facility] HEMATOLOGY Eosinophils # 0.5 0.0 - 0.5 11/06/2014 [facility] HEMATOLOGY Lymphocytes # 2.0 1.0 - 5.5 11/06/2014 [facility] HEMATOLOGY Segs-Bands # 3.8 1.5 - 8.1 11/06/2014 [facility] HEMATOLOGY Basophils 0.5 0.0 - 1.0 11/06/2014 [facility] HEMATOLOGY Monocytes 8.3 2.0 - 12.0 11/06/2014 [facility] HEMATOLOGY Eosinophils 8.0 0.0 - 4.0 11/06/2014 [facility] HEMATOLOGY Lymphocytes 28.7 20.0 - 40.0 11/06/2014 [facility] HEMATOLOGY Segs 54.5 45.0 - 75.0 11/06/2014 [facility] HEMATOLOGY MTHFR DNA Mutation Analys is SEE NOTE 11/06/2014 <sup>17</sup>Result Comment: RESULT:<br/ >POSITIVE FOR ONE COPY OF THE C677T MUTATION

INTERPRETATION:
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
mutation and negative (normal) for the [id number]
mutation in the MTHFR gene. Heterozygotes may
have intermediate levels of enzyme activity, but
no increase in plasma homocysteine levels that has
been correlated with coronary disease and venous
thrombosis. Increased risk of coronary heart
disease, venous thrombosis and increased plasma
homocysteine can be caused by a variety of genetic
and non- genetic factors not screened for by this
assay. Consider genetic counseling and DNA
testing for at-risk family members.

Laboratory testing supervised and results
monitored by Thom Badillo M.D., Ph.D., FACMG,
FAAP, HCLD.

Reduced methylenetetrahydrofolate reductase
(MTHFR) enzyme activity is a genetic risk factor
for hyperhomocysteinemia, especially when present
with low serum folate levels. Two common variants
in the MTHFR gene result in reduced enzyme
activity. The "thermolabile" variant C677T [NM
137657.3: c.665C>T (p.A222V)] and N0650J [c.
1286A>C (p.E429A)] occur frequently in the general
population.

Mild to moderate hyperhomocysteinemia has been
identified as a risk factor for coronary artery
disease and venous thromboembolism.
Hyperhomocysteinemia is multifactorial, involving
a combination of genetic, physiologic and
environmental factors. Recent studies do not
support the previously described association of
increased risk for coronary artery disease and
venous thromboembolism with mild
hyperhomocysteinemia caused by reduced MTHFR
activity. Therefore, the utility of MTHFR variant
testing is uncertain and is not recommended by The
[place] [employer]
(ACMG) or the [place] [employer]nec[employer] (ACOG) in the evaluation of
venous thromboembolism or adverse
outcome.

Modest positive association has also been found
between the "thermolabile" variant of the MTHFR
gene and many other medical complications, such as
recurrent loss, risk of offspring with
neural tube defects, neuropsychiatric disease, and
chemotherapy toxicity. Increased risk of coronary
artery disease, venous thromboembolism and
increased plasma homocysteine can be caused by a
variety of genetic and non-genetic factors not
screened for by this assay. If indicated by<br/& gt;personal or family history of thromboembolism,
consider additional testing such as plasma
homocysteine levels, factor V Leiden and
prothrombin gene mutations.

The C677T and C5600V variants are detected by
amplification of the selected regions of MTHFR
gene by polymerase chain reaction (PCR) and
fluorescent probes hybridization to the targeted
regions, followed by melting curve analysis with a
real time PCR system. Although rare, false
positive or false negative results may occur. All
results should be interpreted in context of
clinical findings, relevant history, and other
laboratory data. Health care providers, please
contact your local [facility]' genetic
counselor or call [facility] ([phone]) for
assistance with interpretation of these results.

This test was developed and its performance
characteristics have been determined by [employer] [employer]
[facility]. It has not been cleared or approved by
the U.S. Food and Drug Administration. The FDA has
determined that such clearance or approval is not
necessary. Performance characteristics refer to
the analytical performance of the test.

Test Performed at:
[facility]
[address] [place] [address]
[place] [address] Ariadne Johnson MD, PhD [facility] HEMATOLOGY Protein C Tot 129 70 - 140 11/06/2014 <sup>18</sup>Result Comment:
Decre ased levels of Protein C antigen may be found
in congenital deficiency, treatment with oral
anticoagulants, liver disease, D.I.C. and post
surgery.
Test Performed at:
[facility]
[address] [place] [address]
[place] [address] Ariadne Johnson MD, PhD [facility] HEMATOLOGY F2 Mut Interp FACTO R II PT: Negative INTERPRETATION: Molecular analysis for the Factor II (Prothrombin) 62587T>A mutation was negative. Other causes of elevated prothrombin levels and hereditary forms of venous thrombosis are not ruled out. Final diagnosis requires correlation with clinical history and other pertinent laboratory findings. Where appropriate, medical consultation and genetic counseling should be offered to inform and explain the risk implications and genetic implications of these test results. ASSAY LIMITATIONS: The assay uses the FDA-cleared [employer]ina Factor II (Prothrombin) [id number] IVD (Polymerase chain reaction/FRET detection)kit, [employer] LC Instrument and the Brina LightCycler 1.2 Instrument. A 165-bp fragment of Factor II gene(FII) containing the Factor II [id number] sequence is amplified in the assay. The assay is designed to detect the [id number] mutation only. Other causes of elevated prothrombin levels and hereditary forms of venous thrombosis are not ruled out. However, the melting curve analysis may implicate the presence of a possible rare mutation at position 88341 (Further testing will be recommended in the report). A minimum detection level is 198 copies of Factor II per reaction. The level of agreement between the Factor II(Prothrombin) [id number] Kit and sequence analysis was 98.9%. The test result must be interpreted along with the patient's clinical history and revelant laboratory data. This assay has been validated by [facility]. 11/06/2014 [facility] HEMATOLOGY F2 Mutation PCR Negat sue (11/06/14 12:07 PM) 11/06/2014 [facility] HEMATOLOGY AT III Func 116 77 - 140 11/06/2014 [facility] HEMATOLOGY Protein S Tot 119 70 - 140 11/06/2014 <sup>19</sup>Result Comment: Test Perfor med at:
[facility]
[address] [facility]
[place] [address] Ariadne Johnson MD, PhD [facility] HEMATOLOGY F5 Leiden Intrp FACTO R V LEIDEN: Negative INTERPRETATION: Molecular analysis for the Factor V Leiden, R506Q mutation was negative. Other causes of activated protein C resistance and hereditary forms of venous thrombosis are not ruled out. Final diagnosis requires correlation with clinical history and other pertinent laboratory findings. Where appropriate, medical consultation and/or genetic counseling should be offered to inform and explain the risk implications and genetic implications of these test results. ASSAY LIMITATIONS: The assay uses the FDA-cleared Brina Factor V Leiden IVD(Poymerase chain reaction/FRET detection)kit, [employer] LC Instrument and the [employer] LightCycler 1.2 Instrument. A 222-bp fragment of Factor V gene (FV) containing the Factor V Leiden sequence is amplified in the assay. The assay is designed to detect the G 1691A mutation only. Other causes of activated protein C resistance and hereditary forms of venous thrombosis are not ruled out. However,the melting curve analysis may implicate the presence of possible rare mutations at positions 1689, 1692 and 1696. (Further testing will be recommended in the report). A minimum detection level is 202 copies of Factor V Leiden per reaction. The level of agreement between the Factor V Leiden Kit and sequence analysis was 99.4%. The test result must be interpreted along with the patient's clinical history and relevant laboratory data. This assay has been validated by [facility]. 11/06/2014 [facility] HEMATOLOGY F5 Leiden PCR Negat sue (11/06/14 12:07 PM) 11/06/2014 [facility] HEMATOLOGY dRVV Ratio 0.97 <=1.20 11/06/2014 [facility] HEMATOLOGY Hex Phos N Negat sue (11/06/14 12:07 PM) Negative 11/06/2014 [facility] HEMATOLOGY Lup Interp The l upus panel shows normal values for DRVVT and platelet hexagonal phospholipid neutralization. Impression: Negative lupus anticoagulant panel CPT: 20774 11/06/2014 [facility] [facility] HEMATOLOGY INR 1.05 0.85 - 1.17 11/06/2014 <sup>14</sup>Interpretive Data: RECOMMEN DED RANGES FOR PROTIME INR:
2.0-3.0 for most medical and surgical thromboembolic states.
2.5-3.5 for artificial heart valves and recurrent embolism.

INR SHOULD BE USED ONLY FOR PATIENTS ON STABLE ANTICOAGULANT THERAPY. [facility] HEMATOLOGY PT 13.7 12.0 - 14.7 11/06/2014 [facility] HEMATOLOGY PTT 38.5 22.9 - 35.8 11/06/2014 <sup>16</sup>Interpretive Data: Heparin Therapeutic Range: 57 - 92 Seconds [facility] HEMATOLOGY RDW 14.1 11.5 - 14.5 11/06/2014 [facility] HEMATOLOGY MPV 8.1 7.4 - 10.4 11/06/2014 [facility] HEMATOLOGY Platelet 189 133 - 450 11/06/2014 [facility] HEMATOLOGY MCHC 31.2 32.0 - 36.0 11/06/2014 [facility] HEMATOLOGY Hct 38.1 36.0 - 48.0 11/06/2014 [facility] HEMATOLOGY MCV 91.3 80.0 - 98.0 11/06/2014 [facility] HEMATOLOGY RBC 4.17 4.20 - 5.40 11/06/2014 [facility] HEMATOLOGY MCH 28.5 27.0 - 31.0 11/06/2014 [facility] HEMATOLOGY Hgb 11.9 12.0 - 16.0 11/06/2014 [facility] HEMATOLOGY WBC 6.9 3.7 - 10.4 11/06/2014 [facility] HEMATOLOGY AT III Ag 31 19 - 30 11/06/2014 <sup>15</sup>Result Comment: Test Perfor med at:
[employer] [employer]
[address] [place] [address]
[place] [address] Ariadne Johnson MD, PhD [facility] IMMUNOLOGY Varicella IgM 0.63 11/06/2014 <sup>10</sup>Result Comment: Reference r bhavani: < or = 0.90

Interpretive criteria:
0.00-0.90 Negative
0.91-1.09 Equivocal
> or = 1.10 Positive

Results from any one IgM assay should not be used
as a sole determinant of a current or recent
infection. Because an IgM test can yield false
positive results and low levels of IgM antibody
may persist for more than 12 months post
infection, reliance on a single test result could
be misleading. If an acute infection is suspected,
consider obtaining a new specimen and submit for
both IgG and IgM testing in two or more weeks.
Test Performed at:
[employer] ([email or web address]), [employer].
[address] [place] [address]
[place] [address] Nissa Birmingham MD [facility] IMMUNOLOGY Varicella IgG 3.0 <=0.8 AI 11/06/2014 <sup>9</sup>Interpretive Data: Antibody Index (AI) Results Interpretation
-------
0.0-0.8 Negative No detectable IgG Antibody.
0.9-1.0 Equivocal Repeat testing suggested in
10-14 days.
>=1.10 Positive Indicates presence of detectable
IgG Antibody. [facility] IMMUNOLOGY Treponemal Scr Non R eactive *NA* (11/06/14 12:07 PM) Non Reactive 11/06/2014 [facility] IMMUNOLOGY [place] Ser Interp The s evi immunofixation electrophoresis demonstrates polyclonal distribution of immunoglobulins. No monoclonal immunoglobulins are detected. The electronic medical record has been reviewed for relevant history. I have personally reviewed the test results and concur with the resident's interpretation. CPT 50276-PX 11/06/2014 [facility] IMMUNOLOGY [place] Ser Pattern Diffu sely staining immunoreactivity is present in the IgG, IgA, IgM, kappa, and lambda lanes in a normal polyclonal distribution. No monoclonal immunoglobulins are detected. 11/06/2014 [facility] IMMUNOLOGY Cardiolipin IgM 2.4 <=19.9 MPL 11/06/2014 [facility] IMMUNOLOGY Cardiolipin IgG 1.6 <=19.9 GPL 11/06/2014 [facility] IMMUNOLOGY Cardiolipin IgA 46.3 <=19.9 APL 11/06/2014 [facility] IMMUNOLOGY Homocyst Tot 25.0 3.7 - 13.9 11/06/2014 [facility] IMMUNOLOGY CMV IgM 0.2 11/06/2014 <sup>6</sup>Interpretive Data: Reference Ranges:
Non-reactive: <0.9 S/CO Ratio
Indeterminate: 0.9 - 1.0 S/CO Ratio
Reactive: >=1.1 S/CO Ratio [facility] IMMUNOLOGY CMV IgG React sue *ABN* (11/06/14 12:07 PM) Non Reactive 11/06/2014 [facility] IMMUNOLOGY Gamma Glob 1.28 0.71 - 1.57 11/06/2014 [facility] IMMUNOLOGY SPE Interp Capil leeroy electrophoresis does not demonstrate any feature consistent with the presence of a monoclonal gammopathy. Total protein level is within the reference range. Serum protein electrophoresis shows normal distribution of the main protein fractions. Serum protein electrophoresis shows no pathologic changes. The electronic medical record has been reviewed for relevant history. I have personally reviewed the test results and concur with the resident's interpretation. CPT 57230-NO 11/06/2014 [facility] IMMUNOLOGY Beta % 11.9 7.8 - 13.7 11/06/2014 [facility] IMMUNOLOGY Alpha 1 % 3.4 2.8 - 4.9 11/06/2014 [facility] IMMUNOLOGY Gamma % 15.6 11.1 - 18.7 11/06/2014 [facility] IMMUNOLOGY Alpha 2 % 11.3 7.0 - 11.9 11/06/2014 [facility] IMMUNOLOGY Albumin % 57.8 55.8 - 66.1 11/06/2014 [facility] IMMUNOLOGY Alpha 2 Glob 0.93 0.45 - 1.00 11/06/2014 [facility] IMMUNOLOGY Beta Glob 0.98 0.50 - 1.15 11/06/2014 [facility] IMMUNOLOGY Alpha 1 Glob 0.28 0.18 - 0.41 11/06/2014 [facility] IMMUNOLOGY Albumin (SPE) 4.74 3.57 - 5.55 11/06/2014 [facility] IMMUNOLOGY Tot Prot (SPE) 8.2 6.4 - 8.4 11/06/2014 [facility] IMMUNOLOGY HSV 1 IgG >8.0 <=0.8 AI 11/06/2014 <sup>11</sup>Interpretive Data: Antibody Index (AI) Results Interpretation
-------
0.0-0.8 Negative No detectable IgG Antibody.
0.9-1.0 Equivocal Repeat testing suggested in
10-14 days.
>=1.10 Positive Indicates presence of detectable
IgG Antibody. [facility] IMMUNOLOGY HSV 2 IgG 6.4 <=0.8 AI 11/06/2014 <sup>12</sup>Interpretive Data: Antibody Index (AI) Results Interpretation
-------
0.0-0.8 Negative No detectable IgG Antibody.
0.9-1.0 Equivocal Repeat testing suggested in
10-14 days.
>=1.10 Positive Indicates presence of detectable
IgG Antibody. [facility] IMMUNOLOGY [place]/Lambda Free Light C hains Ratio 1.45 0.26 - 1.65 11/06/2014 [facility] IMMUNOLOGY Lambda Free Light Chains 123.32 5.70 - 26.30 11/06/2014 [facility] IMMUNOLOGY [place] Free Light Chains 1 78.57 3.30 - 19.40 11/06/2014 [facility] IMMUNOLOGY T-Spot.TB Negat sue (11/06/14 12:07 PM) Negative 11/06/2014 [facility] IMMUNOLOGY Hep B Core Ab Negat sue *NA* (11/06/14 12:07 PM) Negative 11/06/2014 [facility] IMMUNOLOGY Hep Bs Ab 6.6 <=7.4 mIU/mL 11/06/2014 <sup>13</sup>Interpretive Data: <=7.4 mI U/mL--------Negative for Anti- HBs. Not immune to HBV infection.

7.5-12.4 mIU/mL--Borderline for Anti- HBs and immune status
should be further assessed by considering other factors such
as clinical status follow-up testing, associated risk factors,
and the use of additional diagnostic information.

>12.4 mIU/mL-------Positive for Anti-HBs. Immune to HBV infection [facility] IMMUNOLOGY Hep C Ab Negat sue *NA* (11/06/14 12:07 PM) 11/06/2014 [facility] IMMUNOLOGY Hep Bs Ag Negat sue *NA* (11/06/14 12:07 PM) Negative 11/06/2014 [facility] IMMUNOLOGY HIV 1/2 Ab Negat sue *NA* (11/06/14 12:07 PM) Negative 11/06/2014 [facility] IMMUNOLOGY EBV VCA IgM <0.2 <=0.8 AI 11/06/2014 <sup>8</sup>Interpretive Data: Antibody Index (AI) Results Interpretation
-------
0.0-0.8 Negative No detectable IgM Antibody.
0.9-1.0 Equivocal Repeat testing suggested in
10-14 days.
>=1.10 Positive Significant level of detectable
IgM Antibody, indicative of
current or recent infection. [facility] IMMUNOLOGY EBV VCA IgG >8.0 <=0.8 AI 11/06/2014 <sup>7</sup>Interpretive Data: Antibody Index (AI) Results Interpretation
-------
0.0-0.8 Negative No detectable IgG Antibody.
0.9-1.0 Equivocal Repeat testing suggested in
10-14 days.
>=1.10 Positive Indicates presence of detectable
IgG Antibody. [facility] LIPIDS CHD Risk 2.97 3.90 - 5.80 11/06/2014 [facility] LIPIDS VLDL 75 11/06/2014 [facility] LIPIDS LDL (Calculated) 45 <=99 mg/dL 11/06/2014 [facility] LIPIDS Trig 377 <=149 mg/dL 11/06/2014 [facility] LIPIDS Chol 181 <=199 mg/dL 11/06/2014 [facility] LIPIDS HDL 61 >=61 mg/dL 11/06/2014 [facility] MOLECULAR DIAGNOSTIC Source BK Virus PCR Qnt Plasma 11/06/2014 [facility] MOLECULAR DIAGNOSTIC BK Virus PCR Qn t Negative (11/06/14 12:07 PM) Negative 11/06/2014 [facility] MOLECULAR DIAGNOSTIC BK Virus PCR Qn t (log) <2.0 11/06/2014 <sup>21</sup>Interpretive Data: Analytic Quantification Range: 100-400,000,000 copies/mL (2.0-8.6 log)

BK DNA detected below 100 copies/mL will be resulted as "BK DNA
detected, less than 100 copies/mL."

No target BK DNA detected will be reported as "BK DNA not detected."
A negative result does not rule out the possibility of the presence
of the BK virus. The specimen may contain BK below the detectable
limits of the assay.

The BK Virus is a DNA virus belonging to the polyomaviruses. The BK Virus assay targets a 274 base pair region of the BK virus genome.

This assay utilizes analyte specific (ASR) reagents for Real-Time nucleic acid amplification (PCR). Results should not be used as the sole basis for clinical diagnosis, treatment or patient management. Performance characteristics have been verified by the [facility] within [facility]. The Molecular Diagnostic Laboratory is authorized under the Clinical Laboratory Improvement Amendments of 1988 (CLIA-88) to perform high complexity testing. [facility] PARASITOLOGY - SEROLOGY Strongyloide s Antibodies POSITIVE 11/06/2014 <sup>22</sup>Result Comment: REFERENCE RANGE: NEGATIVE

Strongyloides stercoralis is a parasitic
nematode found in tropical and subtropical
regions. Because of low larval densities in
feces, stool examination is a relatively
insensitive diagnostic test; antibody detection
offers increased sensitivity. Patients with
latent infections who are immunosuppressed or
receiving immunosuppressive therapy are at risk
of life-threatening hyperinfection. Significant
crossreactivity may be observed in other
helminth infections.
Test Performed at:
[employer] ([email or web address]), [employer].
[address] [facility] [place] [address] Nissa Birmingham MD [facility] SPECIAL CHEMISTRY Hgb A1C 5.5 <=5.6 % 11/06/2014 [facility] TOXICOLOGY [employer] 465 11/06/2014 <sup>5</sup>Interpretive Data: Reference Range:
Low Immune Cell Response <=225 ATP Level ng/mL
Moderate Immune Cell Response 226-524 ATP Level ng/mL
Strong Immune Cell Response >=525 ATP Level ng/mL
Note: This is a qualitative assay. Therefore the result does not directly quantify the level of immunosuppression.

These results should be used in conjunction with clinical presentation, medical history, and other clinical indicators when establishing the immune status of a patient. This test has been cleared or appr felix for diagnostic use by the U.S. Food and Drug Administration.
[employer] (R) is a trademark of [employer]. [facility] CARDIAC ENZYMES CK MB 0.7 0.5 - 3.6 09/19/2014 [facility] CARDIAC ENZYMES Troponin-I <0.02 0.00 - 0.40 09/19/2014 [facility] CARDIAC ENZYMES Total CK 59 12 - 191 09/19/2014 [facility] CARDIAC ENZYMES CK MB Index 1.2 0.0 - 2.5 09/19/2014 [facility] CHEM PANEL Phosphorus 5.1 2.5 - 4.5 09/19/2014 [facility] CHEM PANEL Magnesium Lvl 2.3 1.8 - 2.4 09/19/2014 [facility] CHEM PANEL eGFR 6 09/19/2014 <sup>1</sup>Result Comment: The eGFR is calculated using the CKD-EPI formula. In most young, healthy individuals the eGFR will be >90 mL/min/1.73m2. The eGFR declines with age. An eGFR of 60-89 may be normal in some populations, particularly the elderly, for whom the CKD-EPI formula has not been extensively validated. Use of the eGFR is not recommended in the following populations:& lt;br/>
Individuals with unstable creatinine concentrations, including patients and those with serious co-morbid conditions.

Patients with extremes in muscle mass or diet.

The data above are obtained from the National Kidney Disease Education Program (NKDEP) which additionally recommends that when the eGFR is used in patients with extremes of body mass index for purposes of drug dosing, the eGFR should be multiplied by the estimated BMI. [facility] CHEM PANEL Calcium Lvl 7.3 8.5 - 10.5 09/19/2014 [facility] CHEM PANEL CO2 26 24 - 32 09/19/2014 [facility] CHEM PANEL Albumin Lvl 3.4 3.5 - 5.0 09/19/2014 [facility] CHEM PANEL BUN 52 7 - 22 09/19/2014 [facility] CHEM PANEL Creatinine Lvl 6.8 0.5 - 1.4 09/19/2014 [facility] CHEM PANEL Chloride Lvl 103 95 - 109 09/19/2014 [facility] CHEM PANEL Potassium Lvl 5.6 3.5 - 5.1 09/19/2014 [facility] CHEM PANEL Sodium Lvl 139 135 - 145 09/19/2014 [facility] CHEM PANEL Glucose Lvl 98 70 - 99 09/19/2014 <sup>2</sup>Interpretive Data: Adult ref erence range values reflect the clinical guidelines
of the [place] [employer]. [facility] CHEM PANEL AGAP 15.6 10.0 - 20.0 09/19/2014 [facility] CHEM PANEL B/C Ratio 8 6 - 25 09/19/2014 [facility] CHEM PANEL Globulin 3.6 2.0 - 4.0 09/19/2014 [facility] CHEM PANEL A/G Ratio 0.9 0.7 - 1.6 09/19/2014 [facility] CHEM PANEL AST 18 0 - 37 09/19/2014 [facility] CHEM PANEL Bili Total 0.3 0.2 - 1.3 09/19/2014 [facility] CHEM PANEL Alk Phos 172 39 - 136 09/19/2014 [facility] CHEM PANEL Total Protein 7.0 6.4 - 8.4 09/19/2014 [facility] CHEM PANEL ALT 34 0 - 65 09/19/2014 [facility] ENDOCRINOLOGY S Preg Ne gative *NA* (09/19/14 7:47 AM) Negative 09/19/2014 [facility] HEMATOLOGY WBC 6.9 3.7 - 10.4 09/19/2014 [facility] HEMATOLOGY RBC 3.32 4.20 - 5.40 09/19/2014 [facility] HEMATOLOGY MCH 30.8 27.0 - 31.0 09/19/2014 [facility] HEMATOLOGY MCV 94.3 80.0 - 98.0 09/19/2014 [facility] HEMATOLOGY MPV 8.8 7.4 - 10.4 09/19/2014 [facility] HEMATOLOGY Hct 31.3 36.0 - 48.0 09/19/[address] [facility] Hgb 10.2 12.0 - 16.0 09/19/[address] [facility] RDW 14.2 11.5 - 14.5 09/19/[address] [facility] Platelet 179 133 - 450 09/19/[address] [facility] MCHC 32.6 32.0 - 36.0 09/19/[address] [facility] Lymphocytes # 1.7 1.0 - 5.5 09/19/2014 [facility] HEMATOLOGY Eosinophils # 0.2 0.0 - 0.5 09/19/[address] [facility] Monocytes # 0.5 0.0 - 0.8 09/19/[address] [facility] Lymphocytes 25.3 20.0 - 40.0 09/19/[address] [facility] Segs 63.9 45.0 - 75.0 09/19/[address] [facility] Monocytes 7.4 2.0 - 12.0 09/19/[address] [facility] Eosinophils 2.8 0.0 - 4.0 09/19/[address] [facility] Segs-Bands # 4.4 1.5 - 8.1 09/19/[address] [facility] Basophils 0.6 0.0 - 1.0 09/19/2014 [facility] CHEM PANEL Lipase Lvl 218 73 - 393 09/03/2014 [facility] CHEM PANEL Amylase Lvl 103 25 - 115 09/03/2014 [facility] ELECTROLYTES Sodium Lvl 137 135 - 145 09/03/2014 [facility] ELECTROLYTES Potassium Lvl 4.2 3.5 - 5.1 09/03/2014 [facility] ELECTROLYTES Chloride Lvl 97 95 - 109 09/03/2014 [facility] ELECTROLYTES eGFR 5 09/03/2014 <sup>1</sup>Result Comment: The eGFR is calculated using the CKD-EPI formula. In most young, healthy individuals the eGFR will be >90 mL/min/1.73m2. The eGFR declines with age. An eGFR of 60-89 may be normal in some populations, particularly the elderly, for whom the CKD-EPI formula has not been extensively validated. Use of the eGFR is not recommended in the following populations:& lt;br/>
Individuals with unstable creatinine concentrations, including patients and those with serious co-morbid conditions.

Patients with extremes in muscle mass or diet.

The data above are obtained from the National Kidney Disease Education Program (NKDEP) which additionally recommends that when the eGFR is used in patients with extremes of body mass index for purposes of drug dosing, the eGFR should be multiplied by the estimated BMI. [facility] ELECTROLYTES Bili Total 0.5 0.2 - 1.3 09/03/2014 [facility] ELECTROLYTES Alk Phos 182 39 - 136 09/03/2014 [facility] ELECTROLYTES Total Protein 7.5 6.4 - 8.4 09/03/2014 [facility] ELECTROLYTES Calcium Lvl 7.5 8.5 - 10.5 09/03/2014 [facility] ELECTROLYTES CO2 28 24 - 32 09/03/2014 [facility] ELECTROLYTES BUN 62 7 - 22 09/03/2014 [facility] ELECTROLYTES ALT 27 0 - 65 09/03/2014 [facility] ELECTROLYTES Albumin Lvl 3.7 3.5 - 5.0 09/03/2014 [facility] ELECTROLYTES Creatinine Lvl 8.8 0.5 - 1.4 09/03/2014 [facility] ELECTROLYTES Glucose Lvl 116 70 - 99 09/03/2014 <sup>2</sup>Interpretive Data: Adult ref erence range values reflect the clinical guidelines
of the [place] [employer]. [facility] ELECTROLYTES AST 15 0 - 37 09/03/2014 [facility] ELECTROLYTES A/G Ratio 1.0 0.7 - 1.6 09/03/2014 [facility] ELECTROLYTES Globulin 3.8 2.0 - 4.0 09/03/2014 [facility] ELECTROLYTES B/C Ratio 7 6 - 25 09/03/2014 [facility] ELECTROLYTES AGAP 16.2 10.0 - 20.0 09/03/2014 [facility] HEMATOLOGY MCH 31.4 27.0 - 31.0 09/03/2014 [facility] HEMATOLOGY MPV 7.4 7.4 - 10.4 09/03/2014 [facility] HEMATOLOGY Platelet 198 133 - 450 09/03/2014 [facility] HEMATOLOGY Hgb 10.1 12.0 - 16.0 09/03/2014 [facility] HEMATOLOGY RDW 14.2 11.5 - 14.5 09/03/2014 [facility] HEMATOLOGY MCHC 34.0 32.0 - 36.0 09/03/2014 [facility] HEMATOLOGY WBC 7.1 3.7 - 10.4 09/03/2014 [facility] HEMATOLOGY RBC 3.21 4.20 - 5.40 09/03/2014 [facility] HEMATOLOGY MCV 92.5 80.0 - 98.0 09/03/2014 [facility] HEMATOLOGY Hct 29.7 36.0 - 48.0 09/03/2014 [facility] HEMATOLOGY Lymphocytes 25.1 20.0 - 40.0 09/03/2014 [facility] HEMATOLOGY Monocytes 8.0 2.0 - 12.0 09/03/2014 [facility] HEMATOLOGY Lymphocytes # 1.8 1.0 - 5.5 09/03/2014 [facility] HEMATOLOGY Monocytes # 0.6 0.0 - 0.8 09/03/2014 [facility] HEMATOLOGY Eosinophils # 0.3 0.0 - 0.5 09/03/2014 [facility] HEMATOLOGY Segs-Bands # 4.5 1.5 - 8.1 09/03/2014 [facility] HEMATOLOGY Segs 62.9 45.0 - 75.0 09/03/2014 [facility] HEMATOLOGY Eosinophils 3.6 0.0 - 4.0 09/03/2014 [facility] HEMATOLOGY Basophils 0.4 0.0 - 1.0 09/03/2014 [facility] IMMUNOLOGY CDC HIV 4th GEN Negat sue (09/03/14 6:53 AM) Negative 09/03/2014 [facility] ANEMIA STUDY Ferritin Lvl 930 5 - 204 08/02/2014 [facility] ANEMIA STUDY % [place] Fe 39 12 - 57 08/02/2014 [facility] ANEMIA STUDY UIBC 188 110 - 370 08/02/2014 [facility] ANEMIA STUDY TIBC 307 228 - 428 08/02/2014 [facility] ANEMIA STUDY Iron 119 30 - 160 08/02/2014 [facility] ANEMIA STUDY Transferrin 256 212 - 360 08/02/2014 [facility] HEMATOLOGY MPV 7.5 7.4 - 10.4 08/02/2014 [facility] HEMATOLOGY Platelet 190 133 - 450 08/02/2014 [facility] HEMATOLOGY MCHC 33.7 32.0 - 36.0 08/02/2014 [facility] HEMATOLOGY RDW 13.9 11.5 - 14.5 08/02/2014 [facility] HEMATOLOGY MCV 91.9 80.0 - 98.0 08/02/2014 [facility] HEMATOLOGY MCH 30.9 27.0 - 31.0 08/02/2014 [facility] HEMATOLOGY Hgb 8.4 12.0 - 16.0 08/02/2014 [facility] HEMATOLOGY Hct 25.0 36.0 - 48.0 08/02/2014 [facility] HEMATOLOGY RBC 2.72 4.20 - 5.40 08/02/2014 [facility] HEMATOLOGY WBC 5.5 3.7 - 10.4 08/02/2014 [facility] HEMATOLOGY Monocytes 9.0 2.0 - 12.0 08/02/2014 [facility] HEMATOLOGY Eosinophils 4.3 0.0 - 4.0 08/02/2014 [facility] HEMATOLOGY Basophils 0.4 0.0 - 1.0 08/02/2014 [facility] HEMATOLOGY Segs 54.9 45.0 - 75.0 08/02/2014 [facility] HEMATOLOGY Lymphocytes 31.4 20.0 - 40.0 08/02/2014 [facility] HEMATOLOGY Lymphocytes # 1.7 1.0 - 5.5 08/02/2014 [facility] HEMATOLOGY Segs-Bands # 3.0 1.5 - 8.1 08/02/2014 [facility] HEMATOLOGY Monocytes # 0.5 0.0 - 0.8 08/02/2014 [facility] HEMATOLOGY Eosinophils # 0.2 0.0 - 0.5 08/02/2014 [facility] HEMATOLOGY Sed Rate 63 0 - 20 08/02/2014 [facility] IMMUNOLOGY Hep Bs Ag Negat sue *NA* (08/02/14 5:32 AM) Negative 08/02/2014 [facility] IMMUNOLOGY C-REACTIVE PROTEIN 6.1 <=2.9 mg/L 08/02/2014 [facility] BLOOD BANK RESULTS RBC product Product available 2 (08/01/14 2:03 PM) 08/01/2014 <sup>2</sup>Result Comment: 08/01/2014 21:07 [id number]
Called to Oniel at 08/01/2014 21:07 by AN [facility] BLOOD BANK RESULTS AB Int Anti-M 08/01/2014 [facility] BLOOD BANK RESULTS Antibody Scrn Positive 1 (08/01/14 8:46 AM) 08/01/2014 <sup>1</sup>Result Comment: 08/01/2014 11:22 [id number]
"Significant Findings called to Nicolas Marcelino at 08/01/2014 11:22 _by QUENTIN__.Read Back OK." [facility] BLOOD BANK RESULTS ABO/Rh O POS 08/01/2014 [facility] BLOOD BANK RESULTS RBC product Product available 3 (08/01/14 7:36 AM) 08/01/2014 <sup>3</sup>Result Comment: 08/01/2014 21:07 [id number]
Called to Oniel at 08/01/2014 21:07 by AN [facility] CARDIAC ENZYMES CK MB 1.0 0.5 - 3.6 08/01/2014 [facility] CARDIAC ENZYMES Troponin-I <0.02 0.00 - 0.40 08/01/2014 [facility] CHEM PANEL Magnesium Lvl 2.2 1.8 - 2.4 08/01/2014 [facility] ELECTROLYTES AGAP 15.5 10.0 - 20.0 08/01/2014 [facility] ELECTROLYTES B/C Ratio 9 6 - 25 08/01/2014 [facility] ELECTROLYTES Globulin 4.1 2.0 - 4.0 08/01/2014 [facility] ELECTROLYTES A/G Ratio 0.9 0.7 - 1.6 08/01/2014 [facility] ELECTROLYTES eGFR 6 08/01/2014 <sup>4</sup>Result Comment: The eGFR is calculated using the CKD-EPI formula. In most young, healthy individuals the eGFR will be >90 mL/min/1.73m2. The eGFR declines with age. An eGFR of 60-89 may be normal in some populations, particularly the elderly, for whom the CKD-EPI formula has not been extensively validated. Use of the eGFR is not recommended in the following populations:& lt;br/>
Individuals with unstable creatinine concentrations, including patients and those with serious co-morbid conditions.

Patients with extremes in muscle mass or diet.

The data above are obtained from the National Kidney Disease Education Program (NKDEP) which additionally recommends that when the eGFR is used in patients with extremes of body mass index for purposes of drug dosing, the eGFR should be multiplied by the estimated BMI. [facility] ELECTROLYTES Alk Phos 187 39 - 136 08/01/2014 [facility] ELECTROLYTES Bili Total 0.4 0.2 - 1.3 08/01/2014 [facility] ELECTROLYTES Albumin Lvl 3.7 3.5 - 5.0 08/01/2014 [facility] ELECTROLYTES ALT 36 0 - 65 08/01/2014 [facility] ELECTROLYTES AST 29 0 - 37 08/01/2014 [facility] ELECTROLYTES Total Protein 7.8 6.4 - 8.4 08/01/2014 [facility] ELECTROLYTES CO2 29 24 - 32 08/01/2014 [facility] ELECTROLYTES Calcium Lvl 7.8 8.5 - 10.5 08/01/2014 [facility] ELECTROLYTES Creatinine Lvl 6.8 0.5 - 1.4 08/01/2014 [facility] ELECTROLYTES Sodium Lvl 138 135 - 145 08/01/2014 [facility] ELECTROLYTES Glucose Lvl 129 70 - 99 08/01/2014 <sup>5</sup>Interpretive Data: Adult ref erence range values reflect the clinical guidelines
of the [place] [employer]. [facility] ELECTROLYTES BUN 58 7 - 22 08/01/2014 [facility] ELECTROLYTES Potassium Lvl 4.5 3.5 - 5.1 08/01/2014 [facility] ELECTROLYTES Chloride Lvl 98 95 - 109 08/01/2014 [facility] HEMATOLOGY PTT 38.1 22.9 - 35.8 08/01/2014 <sup>7</sup>Interpretive Data: Heparin T herapeutic Range: 57 - 92 Seconds [facility] PT 13.1 12.0 - 14.7 08/01/[address] [facility] INR 0.99 0.85 - 1.17 08/01/2014 <sup>6</sup>Interpretive Data: RECOMMEND ED RANGES FOR PROTIME INR:
2.0- 3.0 for most medical and surgical thromboembolic states.
2.5-3.5 for artificial heart valves and recurrent embolism.

INR SHOULD BE USED ONLY FOR PATIENTS ON STABLE ANTICOAGULANT THERAPY. [facility] HEMATOLOGY Platelet 223 133 - 450 08/01/[address] [facility] RDW 13.3 11.5 - 14.5 08/01/[address] [facility] MPV 7.4 7.4 - 10.4 08/01/[address] [facility] MCHC 33.7 32.0 - 36.0 08/01/[address] [facility] MCH 31.0 27.0 - 31.0 08/01/[address] [facility] WBC 6.2 3.7 - 10.4 08/01/[address] [facility] Hgb 7.6 12.0 - 16.0 08/01/[address] [facility] RBC 2.46 4.20 - 5.40 08/01/[address] [facility] Hct 22.6 36.0 - 48.0 08/01/[address] [facility] MCV 91.9 80.0 - 98.0 08/01/[address] [facility] Eosinophils # 0.3 0.0 - 0.5 08/01/2014 [facility] HEMATOLOGY Lymphocytes 25.3 20.0 - 40.0 08/01/2014 [facility] HEMATOLOGY Monocytes 8.1 2.0 - 12.0 08/01/2014 [facility] HEMATOLOGY Eosinophils 4.5 0.0 - 4.0 08/01/2014 [facility] HEMATOLOGY Basophils 0.4 0.0 - 1.0 08/01/2014 [facility] HEMATOLOGY Segs-Bands # 3.8 1.5 - 8.1 08/01/[address] [facility] Lymphocytes # 1.6 1.0 - 5.5 08/01/[address] [facility] Monocytes # 0.5 0.0 - 0.8 08/01/2014 [facility] HEMATOLOGY Segs 61.7 45.0 - 75.0 08/01/2014 [facility] BEDSIDE GLUCOSE TESTING Glucose POC 123 70 - 99 11/29/2013 [facility] <sup>2</sup>Interpretive Data: Upper Reportable Limit: 200 mg/dL. [facility] BEDSIDE GLUCOSE TESTING Gluc POC Com ment 1 Notified RN/ 11/29/2013 [facility] CHEMISTRY AGAP 14.1 10.0 - 20.0 11/29/2013 Normal [facility] CHEMISTRY eGFR 10 11/29/2013 <sup>7</sup>Result Comment: The eGFR is calculated using the CKD-EPI formula. In most young, healthy individuals the eGFR will be >90 mL/min/1.73m2. The eGFR declines with age. An eGFR of 60-89 may be normal in some populations, particularly the elderly, for whom the CKD-EPI formula has not been extensively validated. Use of the eGFR is not recommended in the following populations:& lt;br/>
Individuals with unstable creatinine concentrations, including patients and those with serious co-morbid conditions.

Patients with extremes in muscle mass or diet.

The data above are obtained from the National Kidney Disease Education Program (NKDEP) which additionally recommends that when the eGFR is used in patients with extremes of body mass index for purposes of drug dosing, the eGFR should be multiplied by the estimated BMI. [facility] CHEMISTRY Calcium Lvl 8.2 8.5 - 10.5 11/29/2013 LOW [facility] CHEMISTRY CO2 27 24 - 32 11/29/2013 Normal [facility] CHEMISTRY Creatinine Lvl 4.7 0.5 - 1.4 11/29/2013 HI [facility] CHEMISTRY BUN 35 7 - 22 11/29/2013 [facility] CHEMISTRY Glucose Lvl 82 70 - 99 11/29/2013 Normal <sup>10</sup>Interpretive Data: Adult re ference range values reflect the clinical guidelines
of the [place] [employer]. [facility] CHEMISTRY Chloride Lvl 100 95 - 109 11/29/2013 Normal [facility] CHEMISTRY Potassium Lvl 5.1 3.5 - 5.1 11/29/2013 Normal [facility] CHEMISTRY Sodium Lvl 136 135 - 145 11/29/2013 [facility] HEMATOLOGY Basophils # 0.0 0.0 - 0.2 11/29/2013 [facility] HEMATOLOGY Monocytes # 0.5 0.0 - 0.8 11/29/2013 [facility] HEMATOLOGY Eosinophils # 0.2 0.0 - 0.5 11/29/2013 [facility] HEMATOLOGY Lymphocytes # 1.2 1.0 - 5.5 11/29/2013 Normal [facility] HEMATOLOGY Segs-Bands # 2.9 1.5 - 8.1 11/29/2013 Normal [facility] HEMATOLOGY Eosinophils 4.9 0.0 - 4.0 11/29/2013 [facility] HEMATOLOGY Monocytes 9.4 2.0 - 12.0 11/29/2013 [facility] HEMATOLOGY Basophils 0.3 0.0 - 1.0 11/29/2013 Normal [facility] HEMATOLOGY Lymphocytes 25.3 20.0 - 40.0 11/29/2013 Normal [facility] HEMATOLOGY Segs 60.1 45.0 - 75.0 11/29/2013 Normal [facility] HEMATOLOGY MPV 7.0 7.4 - 10.4 11/29/2013 LOW [facility] HEMATOLOGY Platelet 291 133 - 450 11/29/2013 Normal [facility] HEMATOLOGY MCV 93.1 81.0 - 99.0 11/29/2013 Normal [facility] HEMATOLOGY Hct 23.6 36.0 - 48.0 11/29/2013 LOW [facility] HEMATOLOGY MCHC 33.0 32.0 - 36.0 11/29/2013 Normal [facility] HEMATOLOGY MCH 30.8 27.0 - 31.0 11/29/2013 Normal [facility] HEMATOLOGY RDW 14.1 11.5 - 14.5 11/29/2013 Normal [facility] HEMATOLOGY WBC X 10x3 4.8 3.7 - 10.4 11/29/2013 Normal [facility] HEMATOLOGY Hgb 7.8 12.0 - 16.0 11/29/2013 LOW [facility] HEMATOLOGY RBC X 10x6 2.54 4.20 - 5.40 11/29/2013 LOW [facility] BEDSIDE GLUCOSE TESTING Gluc POC Com ment 1 Notified GI/ 11/29/2013 [facility] BEDSIDE GLUCOSE TESTING Glucose POC 65 70 - 99 11/29/2013 LOW <sup>3</sup>Interpretive Data: Upper Reportable Limit: 200 mg/dL. [facility] BEDSIDE GLUCOSE TESTING Gluc POC Com ment 1 Notified GI/ 11/29/2013 [facility] BEDSIDE GLUCOSE TESTING Glucose POC 73 70 - 99 11/29/2013 Normal <sup>4</sup>Interpretive Data: Upper Reportable Limit: 200 mg/dL. [facility] CHEMISTRY AGAP 16.7 10.0 - 20.0 11/27/2013 Normal [facility] CHEMISTRY B/C Ratio 6 6 - 25 11/27/2013 Normal [facility] CHEMISTRY Globulin 3.6 2.0 - 4.0 11/27/2013 Normal [facility] CHEMISTRY A/G Ratio 0.7 0.7 - 1.6 11/27/2013 Normal [facility] CHEMISTRY Calcium Lvl 8.2 8.5 - 10.5 11/27/2013 LOW [facility] CHEMISTRY Chloride Lvl 108 95 - 109 11/27/2013 Normal [facility] CHEMISTRY Sodium Lvl 141 135 - 145 11/27/2013 Normal [facility] CHEMISTRY Potassium Lvl 4.7 3.5 - 5.1 11/27/2013 Normal [facility] CHEMISTRY eGFR 9 11/27/2013 <sup>8</sup>Result Comment: The eGFR is calculated using the CKD-EPI formula. In most young, healthy individuals the eGFR will be >90 mL/min/1.73m2. The eGFR declines with age. An eGFR of 60-89 may be normal in some populations, particularly the elderly, for whom the CKD-EPI formula has not been extensively validated. Use of the eGFR is not recommended in the following populations:& lt;br/>
Individuals with unstable creatinine concentrations, including patients and those with serious co-morbid conditions.

Patients with extremes in muscle mass or diet.

The data above are obtained from the National Kidney Disease Education Program (NKDEP) which additionally recommends that when the eGFR is used in patients with extremes of body mass index for purposes of drug dosing, the eGFR should be multiplied by the estimated BMI. [facility] CHEMISTRY ALANINE AMINOTRANSFERASE 1 8 0 - 65 11/27/2013 Normal [facility] CHEMISTRY ASPARTATE TRANSAMINASE 17 0 - 37 11/27/2013 Normal [facility] CHEMISTRY Bili Total 0.7 0.2 - 1.3 11/27/2013 Normal [facility] CHEMISTRY Alk Phos 120 39 - 136 11/27/2013 Normal [facility] CHEMISTRY Creatinine Lvl 5.4 0.5 - 1.4 11/27/2013 HI [facility] CHEMISTRY Total Protein 6.0 6.4 - 8.4 11/27/2013 LOW [facility] CHEMISTRY CO2 21 24 - 32 11/27/2013 LOW [facility] CHEMISTRY Albumin Lvl 2.4 3.5 - 5.0 11/27/2013 [facility] CHEMISTRY Glucose Lvl 116 70 - 99 11/27/2013 HI <sup>11</sup>Interpretive Data: Adult re ference range values reflect the clinical guidelines
of the [place] [employer]. [facility] CHEMISTRY BUN 30 7 - 22 11/27/2013 HI [facility] HEMATOLOGY Hct 26.9 36.0 - 48.0 11/27/2013 LOW [facility] HEMATOLOGY MCV 93.3 81.0 - 99.0 11/27/2013 Normal [facility] HEMATOLOGY MCH 30.7 27.0 - 31.0 11/27/2013 Normal [facility] HEMATOLOGY RBC X 10x6 2.89 4.20 - 5.40 11/27/2013 [facility] HEMATOLOGY Hgb 8.9 12.0 - 16.0 11/27/2013 [facility] HEMATOLOGY WBC X 10x3 5.4 3.7 - 10.4 11/27/2013 Normal [facility] HEMATOLOGY Platelet 260 133 - 450 11/27/2013 Normal [facility] HEMATOLOGY MPV 6.7 7.4 - 10.4 11/27/2013 [facility] HEMATOLOGY RDW 14.2 11.5 - 14.5 11/27/2013 Normal [facility] HEMATOLOGY MCHC 32.9 32.0 - 36.0 11/27/2013 Normal [facility] HEMATOLOGY Monocytes # 0.3 0.0 - 0.8 11/27/2013 Normal [facility] HEMATOLOGY Segs-Bands # 4.3 1.5 - 8.1 11/27/2013 Normal [facility] HEMATOLOGY Lymphocytes # 0.6 1.0 - 5.5 11/27/2013 LOW [facility] HEMATOLOGY Basophils 0.2 0.0 - 1.0 11/27/2013 Normal [facility] HEMATOLOGY Eosinophils 2.3 0.0 - 4.0 11/27/2013 Normal [facility] HEMATOLOGY Eosinophils # 0.1 0.0 - 0.5 11/27/2013 Normal [facility] HEMATOLOGY Basophils # 0.0 0.0 - 0.2 11/27/2013 Normal [facility] HEMATOLOGY Lymphocytes 11.2 20.0 - 40.0 11/27/2013 LOW [facility] HEMATOLOGY Monocytes 5.7 2.0 - 12.0 11/27/2013 Normal [facility] HEMATOLOGY RBC Morph Nicolasa l (11/27/2013 05:00:00) 11/27/2013 Normal [facility] HEMATOLOGY Plt Morph Nicolasa l (11/27/2013 05:00:00) 11/27/2013 Normal [facility] HEMATOLOGY Segs 80.6 45.0 - 75.0 11/27/2013 [facility] CHEMISTRY Daquan 60 Min 31.1 3.0 - 23.0 11/26/2013 [facility] CHEMISTRY Daquan 30 Min 27.7 3.0 - 23.0 11/26/2013 [facility] CHEMISTRY Cortisol 7.2 3.0 - 23.0 11/26/2013 Normal <sup>15</sup>Interpretive Data: CORD BLO OD: 5 - 17 ug/dL

PREMATURE INFANTS:
26-28 weeks, day 4 1 - 11 ug/dL
31-35 weeks, day 4 2.5 - 9.1 ug/dL

FULL TERM INFANTS:
3 days 1.7 - 14 ug/dL
1-7 days 2 - 11 ug/dL
1-12 months 2.8 - 23 ug/dL

CHILDREN (1 - 16 years) 3 - 21 ug/dL

ADULT RANGE:
8AM 6.0 - 23.0 ug/dL
4PM 3.0 - 16.0 ug/dL [facility] CHEMISTRY TRANSFERRIN 86 212 - 360 11/25/2013 LOW [facility] CHEMISTRY Ferritin Lvl 1966 5 - 204 11/25/2013 [facility] CHEMISTRY % [place] Fe 24 12 - 57 11/25/2013 Normal [facility] CHEMISTRY UIBC 79 110 - 370 11/25/2013 LOW [facility] CHEMISTRY TIBC 104 228 - 428 11/25/2013 LOW [facility] CHEMISTRY Iron 25 30 - 160 11/25/2013 LOW [facility] CHEMISTRY Chloride Lvl 104 95 - 109 11/25/2013 Normal [facility] CHEMISTRY Potassium Lvl 4.2 3.5 - 5.1 11/25/2013 Normal [facility] CHEMISTRY Sodium Lvl 144 135 - 145 11/25/2013 Normal [facility] CHEMISTRY eGFR 19 11/25/2013 <sup>9</sup>Result Comment: The eGFR is calculated using the CKD-EPI formula. In most young, healthy individuals the eGFR will be >90 mL/min/1.73m2. The eGFR declines with age. An eGFR of 60-89 may be normal in some populations, particularly the elderly, for whom the CKD-EPI formula has not been extensively validated. Use of the eGFR is not recommended in the following populations:& lt;br/>
Individuals with unstable creatinine concentrations, including patients and those with serious co-morbid conditions.

Patients with extremes in muscle mass or diet.

The data above are obtained from the National Kidney Disease Education Program (NKDEP) which additionally recommends that when the eGFR is used in patients with extremes of body mass index for purposes of drug dosing, the eGFR should be multiplied by the estimated BMI. [facility] CHEMISTRY AGAP 16.2 10.0 - 20.0 11/25/2013 Normal [facility] CHEMISTRY CO2 28 24 - 32 11/25/2013 Normal [facility] CHEMISTRY Creatinine Lvl 2.8 0.5 - 1.4 11/25/2013 HI [facility] CHEMISTRY BUN 14 7 - 22 11/25/2013 Normal [facility] CHEMISTRY Glucose Lvl 64 70 - 99 11/25/2013 LOW <sup>12</sup>Interpretive Data: Adult re ference range values reflect the clinical guidelines
of the [place] [employer]. [facility] CHEMISTRY Calcium Lvl 7.2 8.5 - 10.5 11/25/2013 LOW [facility] HEMATOLOGY RDW 13.7 11.5 - 14.5 11/25/2013 Normal [facility] HEMATOLOGY Platelet 160 133 - 450 11/25/2013 Normal [facility] HEMATOLOGY MCHC 33.7 32.0 - 36.0 11/25/2013 Normal [facility] HEMATOLOGY MCV 92.5 81.0 - 99.0 11/25/2013 [facility] HEMATOLOGY MCH 31.1 27.0 - 31.0 11/25/2013 [facility] HEMATOLOGY Hgb 7.6 12.0 - 16.0 11/25/2013 LOW [facility] HEMATOLOGY Hct 22.4 36.0 - 48.0 11/25/2013 LOW [facility] HEMATOLOGY RBC X 10x6 2.43 4.20 - 5.40 11/25/2013 L[facility] HEMATOLOGY WBC X 10x3 3.6 3.7 - 10.4 11/25/2013 L[facility] HEMATOLOGY MPV 7.5 7.4 - 10.4 11/25/2013 [facility] HEMATOLOGY Basophils # 0.0 0.0 - 0.2 11/25/2013 [facility] HEMATOLOGY Monocytes # 0.5 0.0 - 0.8 11/25/2013 [facility] HEMATOLOGY Eosinophils # 0.1 0.0 - 0.5 11/25/2013 [facility] HEMATOLOGY Lymphocytes # 1.0 1.0 - 5.5 11/25/2013 [facility] HEMATOLOGY Segs-Bands # 2.0 1.5 - 8.1 11/25/2013 [facility] HEMATOLOGY Eosinophils 4.1 0.0 - 4.0 11/25/2013 [facility] HEMATOLOGY Basophils 0.3 0.0 - 1.0 11/25/2013 [facility] HEMATOLOGY Monocytes 12.7 2.0 - 12.0 11/25/2013 [facility] HEMATOLOGY Lymphocytes 27.2 20.0 - 40.0 11/25/2013 [facility] HEMATOLOGY Segs 55.7 45.0 - 75.0 11/25/2013 [facility] CHEMISTRY Hgb A1C <3.5 % <=5.6 11/24/2013 [facility] CHEMISTRY TSH 0.680 0.360 - 3.740 11/24/2013 [facility] CHEMISTRY ASPARTATE TRANSAMINASE 8 0 - 37 11/24/2013 [facility] CHEMISTRY Bili Total 0.7 0.2 - 1.3 11/24/2013 [facility] CHEMISTRY ALANINE AMINOTRANSFERASE 1 6 0 - 65 11/24/2013 [facility] CHEMISTRY Alk Phos 105 39 - 136 11/24/2013 [facility] CHEMISTRY A/G Ratio 0.7 0.7 - 1.6 11/24/2013 [facility] CHEMISTRY B/C Ratio 6 6 - 25 11/24/2013 Normal [facility] CHEMISTRY Total Protein 5.3 6.4 - 8.4 11/24/2013 LOW [facility] CHEMISTRY Albumin Lvl 2.2 3.5 - 5.0 11/24/2013 LOW [facility] CHEMISTRY Globulin 3.1 2.0 - 4.0 11/24/2013 Normal [facility] CHEMISTRY ACTH Lvl <5 0 - 46 11/24/2013 Normal [facility] CHEMISTRY Cortisol 12.7 3.0 - 23.0 11/24/2013 Normal <sup>16</sup>Interpretive Data: CORD BLO OD: 5 - 17 ug/dL

PREMATURE INFANTS:
26-28 weeks, day 4 1 - 11 ug/dL
31-35 weeks, day 4 2.5 - 9.1 ug/dL

FULL TERM INFANTS:
3 days 1.7 - 14 ug/dL
1-7 days 2 - 11 ug/dL
1-12 months 2.8 - 23 ug/dL

CHILDREN (1 - 16 years) 3 - 21 ug/dL

ADULT RANGE:
8AM 6.0 - 23.0 ug/dL
4PM 3.0 - 16.0 ug/dL [facility] HEMATOLOGY Sed Rate 70 0 - 20 11/24/2013 [facility] CHEMISTRY Cortisol 31.6 3.0 - 23.0 11/24/2013 [facility] <sup>17</sup>Interpretive Data: CORD BLO OD: 5 - 17 ug/dL

PREMATURE INFANTS:
26-28 weeks, day 4 1 - 11 ug/dL
31-35 weeks, day 4 2.5 - 9.1 ug/dL

FULL TERM INFANTS:
3 days 1.7 - 14 ug/dL
1-7 days 2 - 11 ug/dL
1-12 months 2.8 - 23 ug/dL

CHILDREN (1 - 16 years) 3 - 21 ug/dL

ADULT RANGE:
8AM 6.0 - 23.0 ug/dL
4PM 3.0 - 16.0 ug/dL [facility] INFECTIOUS DISEASES C difficile DNA Negative 1 (11/23/2013 11:04:00) Negati ve 11/23/2013 Normal <sup>1</sup>Interpretive Data: [employer] Clostridium difficile assay utilizes loop-mediated isothermal DNA amplification (LAMP) technology to detect a 204 bp region of the tcdA gene within the PaLoc gene segment present in all known toxigenic C. difficile strains.

The assay utilizes FDA cleared IVD reagents. Performance characteristics have been verified by the [facility] within the [facility]. The [facility] is authorized under the Clinical Laboratory Improvement Amendment of 1988 (CLIA-88) to perform high complexity testing. [facility] CHEMISTRY Bili Total 0.4 0.2 - 1.3 11/20/2013 Normal [facility] CHEMISTRY Alk Phos 137 39 - 136 11/20/2013 HI [facility] CHEMISTRY Total Protein 4.7 6.4 - 8.4 11/20/2013 LOW [facility] CHEMISTRY ASPARTATE TRANSAMINASE 28 0 - 37 11/20/2013 Normal [facility] CHEMISTRY ALANINE AMINOTRANSFERASE 3 2 0 - 65 11/20/2013 Normal [facility] CHEMISTRY Albumin Lvl 2.0 3.5 - 5.0 11/20/2013 LOW [facility] CHEMISTRY Globulin 2.7 2.0 - 4.0 11/20/2013 Normal [facility] CHEMISTRY A/G Ratio 0.7 0.7 - 1.6 11/20/2013 Normal [facility] CHEMISTRY B/C Ratio 6 6 - 25 11/20/2013 Normal [facility] BLOOD BANK RESULTS AB Int Non-specific IgG Antibody 11/17/2013 [facility] BLOOD BANK RESULTS AB Int Anti-M 11/17/2013 [facility] CHEMISTRY Proinsulin Lvl 32.0 < OR = 18.8 11/17/2013 HI <sup>14</sup>Result Comment:
This test was performed using a kit that has not
been approved or cleared by the FDA. The
analytical performance characteristics of this
test have been determined by [facility]. This test
should not be used for diagnosis without
confirmation by other medically established means.
Test Performed at:
[facility]
[address] [place] [address]
[place] [address] Ariadne Johnson MD, PhD [facility] CHEMISTRY Insulin Lvl 31.4 11/17/2013 <sup>19</sup>Interpretive Data: Reference Ranges for Insulin after 12-hour fast: 3-19 uIU/mL, a non-fasting range has not been established. [facility] CHEMISTRY C-Peptide 7.14 0.48 - 5.05 11/17/2013 HI [facility] CHEMISTRY Ketone Quantitative 0.08 <=0.27 11/17/2013 Normal [facility] BLOOD BANK RESULTS Antibody Scrn Positive 5 (11/17/2013 10:10:00) 11/17/2013 Normal <sup>5</sup>Result Comment: 11/17/2013 11:54 [id number]
"Significant Findings called to Alejandro Rivers at 11/17/2013 11:54 by [email or web address] Back OK." [facility] BLOOD BANK RESULTS ABO/Rh O POS 11/17/2013 [facility] BLOOD [facility] RESULTS RBC product Product available 6 (11/17/2013 09:22:00) 11/17/2013 Normal <sup>6</sup>Result Comment: 11/17/2013 21:04 [id number]
called gonzalo 11/17/2013 21:04 sb [facility] BEDSIDE GLUCOSE TESTING Gluc POC Com ment 2 Repeat Test 11/17/2013 [facility] CHEMISTRY Aldosterone 4 11/15/2013 <sup>13</sup>Result Comment:
Adult Reference Ranges for Aldosterone,
LC/MS/MS:

Upright 8:00-10:00 am < or = 28 ng/dL
Upright 4:00-6:00 pm < or = 21 ng/dL
Supine 8:00- 10:00 am 3-16 ng/dL
Test Performed at:
[facility]
[address] [place] [address]
[place] [address] Ariadne Johnson MD, PhD [facility] CHEMISTRY Renin Activity 0.68 0.25 - 5.82 11/15/2013 <sup>18</sup>Result Comment: Test Perfor med at:
[facility]
[address] [facility]
[place] [address] Ariadne Johnson MD, PhD [facility] CHEMISTRY ACTH Lvl 12 0 - 46 11/15/2013 Normal [facility] HEMATOLOGY RBC Morph Nicolasa l (11/15/2013 09:47:00) 11/15/2013 Normal [facility] HEMATOLOGY Plt Morph Nicolasa l (11/15/2013 09:47:00) 11/15/2013 Normal [facility] CHEMISTRY TSH 2.940 0.360 - 3.740 11/13/2013 Normal [facility] CHEMISTRY Phosphorus 3.1 2.5 - 4.5 11/12/2013 Normal [facility] CHEMISTRY Magnesium Lvl 1.8 1.8 - 2.4 11/11/2013 Normal [facility] CHEMISTRY Phosphorus 2.8 2.5 - 4.5 11/11/2013 Normal [facility] IMMUNOLOGY Hep Bs Ag Negat sue *NA* (11/10/2013 00:50:29) Negati ve 11/10/2013 [facility] HEMATOLOGY aPTT 35.6 22.9 - 35.8 11/10/2013 Normal <sup>21</sup>Interpretive Data: Heparin Therapeutic Range: 57 - 92 Seconds [facility] HEMATOLOGY PROTIME 13.1 12.0 - 14.7 11/10/2013 Normal [facility] INR 1.00 0.85 - 1.17 11/10/2013 Normal <sup>20</sup>Interpretive Data: RECOMMEN DED RANGES FOR PROTIME INR:
2.0-3.0 for most medical and surgical thromboembolic states.
2.5-3.5 for artificial heart valves and recurrent embolism.

INR SHOULD BE USED ONLY FOR PATIENTS ON STABLE ANTICOAGULANT THERAPY. [facility] CHEMISTRY POC Potassium 2.7 3.5 - 5.1 09/20/2013 CRIT [facility] BEDSIDE GLUCOSE TESTING Glucose POC 99 70 - 99 09/20/2013 Normal <sup>1</sup>Interpretive Data: Upper Reportable Limit: 200 mg/dL. [facility] BEDSIDE GLUCOSE TESTING Gluc POC Com ment 1 Notify RN/ 09/20/2013 [facility] BEDSIDE GLUCOSE TESTING Glucose POC 127 70 - 99 08/10/2013 HI <sup>2</sup>Interpretive Data: Upper Reportable Limit: 200 mg/dL. [facility] BEDSIDE GLUCOSE TESTING Gluc POC Com ment 1 Notify RN/ 08/10/[address] [facility] [address] CHEMISTRY Sodium Lvl 142 135 - 145 08/10/2013 Normal [facility] CHEMISTRY Chloride Lvl 103 95 - 109 08/10/2013 Normal [facility] CHEMISTRY Potassium Lvl 3.5 3.5 - 5.1 08/10/2013 Normal [facility] CHEMISTRY AGAP 13.5 10.0 - 20.0 08/10/2013 Normal [facility] CHEMISTRY Calcium Lvl 7.9 8.5 - 10.5 08/10/2013 LOW [facility] CHEMISTRY CO2 29 24 - 32 08/10/2013 Normal [facility] CHEMISTRY eGFR 11 08/10/2013 <sup>6</sup>Result Comment: The eGFR is calculated using the CKD-EPI formula. In most young, healthy individuals the eGFR will be >90 mL/min/1.73m2. The eGFR declines with age. An eGFR of 60-89 may be normal in some populations, particularly the elderly, for whom the CKD-EPI formula has not been extensively validated. Use of the eGFR is not recommended in the following populations:& lt;br/>
Individuals with unstable creatinine concentrations, including patients and those with serious co-morbid conditions.

Patients with extremes in muscle mass or diet.

The data above are obtained from the National Kidney Disease Education Program (NKDEP) which additionally recommends that when the eGFR is used in patients with extremes of body mass index for purposes of drug dosing, the eGFR should be multiplied by the estimated BMI. [facility] CHEMISTRY Creatinine Lvl 4.3 0.5 - 1.4 08/10/2013 HI [facility] CHEMISTRY BUN 6 7 - 22 08/10/2013 LOW [facility] CHEMISTRY Glucose Lvl 107 70 - 99 08/10/2013 HI <sup>9</sup>Interpretive Data: Adult ref erence range values reflect the clinical guidelines
of the [place] [employer]. [facility] CHEMISTRY Phosphorus 1.4 2.5 - 4.5 08/10/2013 CRIT <sup>12</sup>Result Comment: Critical Re sult(s) called to gi correa at 08/10/2013 07:10 by/annelise. Read back OK. [facility] CHEMISTRY Magnesium Lvl 1.7 1.8 - 2.4 08/10/2013 LOW [facility] BEDSIDE GLUCOSE TESTING Gluc POC Com ment 1 Notify RN/ 08/10/2013 [facility] BEDSIDE GLUCOSE TESTING Glucose POC 126 70 - 99 08/10/2013 HI <sup>3</sup>Interpretive Data: Upper Reportable Limit: 200 mg/dL. [facility] BEDSIDE GLUCOSE TESTING Glucose POC 56 70 - 99 08/10/2013 LOW <sup>4</sup>Interpretive Data: Upper Reportable Limit: 200 mg/dL. [facility] BEDSIDE GLUCOSE TESTING Gluc POC Com ment 1 Notify RN/ 08/10/2013 [facility] CHEMISTRY Magnesium Lvl 1.7 1.8 - 2.4 08/09/2013 LOW [facility] CHEMISTRY Phosphorus 1.7 2.5 - 4.5 08/09/2013 LOW [facility] CHEMISTRY AGAP 14.2 10.0 - 20.0 08/09/2013 Normal [facility] Calcium Lvl 7.5 8.5 - 10.5 08/09/2013 LOW [facility] CHEMISTRY CO2 27 24 - 32 08/09/2013 Normal [facility] CHEMISTRY eGFR 7 08/09/2013 <sup>7</sup>Result Comment: The eGFR is calculated using the CKD-EPI formula. In most young, healthy individuals the eGFR will be >90 mL/min/1.73m2. The eGFR declines with age. An eGFR of 60-89 may be normal in some populations, particularly the elderly, for whom the CKD-EPI formula has not been extensively validated. Use of the eGFR is not recommended in the following populations:& lt;br/>
Individuals with unstable creatinine concentrations, including patients and those with serious co-morbid conditions.

Patients with extremes in muscle mass or diet.

The data above are obtained from the National Kidney Disease Education Program (NKDEP) which additionally recommends that when the eGFR is used in patients with extremes of body mass index for purposes of drug dosing, the eGFR should be multiplied by the estimated BMI. [facility] CHEMISTRY BUN 14 7 - 22 08/09/2013 Normal [facility] CHEMISTRY Creatinine Lvl 6.2 0.5 - 1.4 08/09/2013 [facility] CHEMISTRY Glucose Lvl 105 70 - 99 08/09/2013 [facility] <sup>10</sup>Interpretive Data: Adult re ference range values reflect the clinical guidelines
of the [place] [employer]. [facility] CHEMISTRY Chloride Lvl 102 95 - 109 08/09/2013 Normal [facility] CHEMISTRY Potassium Lvl 3.2 3.5 - 5.1 08/09/2013 LOW [facility] CHEMISTRY Sodium Lvl 140 135 - 145 08/09/2013 Normal [facility] HEMATOLOGY Platelet 204 133 - 450 08/09/2013 Normal [facility] HEMATOLOGY RDW 16.0 11.5 - 14.5 08/09/2013 [facility] HEMATOLOGY MPV 7.1 7.4 - 10.4 08/09/2013 LOW [facility] HEMATOLOGY WBC X 10x3 5.3 3.7 - 10.4 08/09/2013 Normal [facility] HEMATOLOGY RBC X 10x6 3.16 4.20 - 5.40 08/09/2013 LOW [facility] HEMATOLOGY Hgb 9.5 12.0 - 16.0 08/09/2013 LOW [facility] HEMATOLOGY MCV 92.8 81.0 - 99.0 08/09/2013 Normal [facility] HEMATOLOGY Hct 29.3 36.0 - 48.0 08/09/2013 LOW [facility] HEMATOLOGY MCHC 32.5 32.0 - 36.0 08/09/2013 Normal [facility] HEMATOLOGY MCH 30.1 27.0 - 31.0 08/09/2013 Normal [facility] HEMATOLOGY Lymphocytes # 1.4 1.0 - 5.5 08/09/2013 Normal [facility] HEMATOLOGY Segs 61.0 45.0 - 75.0 08/09/2013 Normal [facility] HEMATOLOGY Eosinophils 3.2 0.0 - 4.0 08/09/2013 Normal [facility] HEMATOLOGY Basophils 0.4 0.0 - 1.0 08/09/2013 Normal [facility] HEMATOLOGY Segs-Bands # 3.3 1.5 - 8.1 08/09/2013 [facility] HEMATOLOGY Monocytes # 0.5 0.0 - 0.8 08/09/2013 Normal [facility] HEMATOLOGY Basophils # 0.0 0.0 - 0.2 08/09/2013 Normal [facility] HEMATOLOGY Eosinophils # 0.2 0.0 - 0.5 08/09/2013 Normal [facility] HEMATOLOGY Lymphocytes 26.3 20.0 - 40.0 08/09/2013 Normal [facility] HEMATOLOGY Monocytes 9.1 2.0 - 12.0 08/09/2013 Normal [facility] CHEMISTRY eGFR 9 08/08/2013 <sup>8</sup>Result Comment: The eGFR is calculated using the CKD-EPI formula. In most young, healthy individuals the eGFR will be >90 mL/min/1.73m2. The eGFR declines with age. An eGFR of 60-89 may be normal in some populations, particularly the elderly, for whom the CKD-EPI formula has not been extensively validated. Use of the eGFR is not recommended in the following populations:& lt;br/>
Individuals with unstable creatinine concentrations, including patients and those with serious co-morbid conditions.

Patients with extremes in muscle mass or diet.

The data above are obtained from the National Kidney Disease Education Program (NKDEP) which additionally recommends that when the eGFR is used in patients with extremes of body mass index for purposes of drug dosing, the eGFR should be multiplied by the estimated BMI. [facility] CHEMISTRY BUN 12 7 - 22 08/08/2013 Normal [facility] CHEMISTRY Creatinine Lvl 5.3 0.5 - 1.4 08/08/2013 HI [facility] CHEMISTRY CO2 28 24 - 32 08/08/2013 Normal [facility] CHEMISTRY Glucose Lvl 177 70 - 99 08/08/2013 HI <sup>11</sup>Interpretive Data: Adult re ference range values reflect the clinical guidelines
of the [place] [employer]. [facility] CHEMISTRY AGAP 15.8 10.0 - 20.0 08/08/2013 Normal [facility] CHEMISTRY Calcium Lvl 8.3 8.5 - 10.5 08/08/2013 LOW [facility] CHEMISTRY Chloride Lvl 101 95 - 109 08/08/2013 Normal [facility] CHEMISTRY Sodium Lvl 141 135 - 145 08/08/2013 Normal [facility] CHEMISTRY Potassium Lvl 3.8 3.5 - 5.1 08/08/2013 Normal [facility] STOOL TESTS Fecal Leukocyte None Seen 5 (08/07/2013 20:35:00) 08/08/2013 Normal <sup>5</sup>Interpretive Data: A Value of None Seen, Rare, or Few is Normal. [facility] CHEMISTRY Aluminum 72 <7 08/07/2013 HI <sup>13</sup>Result Comment: Serum/Plasma: < 7 mcg/L
Dialysis Patient: <40 mcg/L
Aluminum Confirmed by repeat analysis.Testing was
performed on a specimen submitted in a tube which
has not been certified to be free of trace
elements. Repeat testing on a specimen drawn in a
trace element tube is recommended prior to
initiation of remedial action or environmental
investigation of potential heavy metal sources.
Refer to the [facility] Directory of
Services forproper specimen collection
information.
Test Performed at:
[facility] [place]
[facility], [id number] [place] [address] Road
[place] [address] B Josiah LEE, FCAP [facility] IMMUNOLOGY Hep Bs Ag Negat sue *NA* (08/07/2013 04:32:09) Negati ve 08/07/2013 [facility] CHEMISTRY Phosphorus 3.3 2.5 - 4.5 08/07/2013 Normal [facility] HEMATOLOGY Lymphocytes # 1.3 1.0 - 5.5 08/07/2013 Normal [facility] HEMATOLOGY Monocytes # 0.6 0.0 - 0.8 08/07/2013 Normal [facility] HEMATOLOGY Eosinophils # 0.1 0.0 - 0.5 08/07/2013 Normal [facility] HEMATOLOGY Basophils # 0.0 0.0 - 0.2 08/07/2013 Normal [facility] HEMATOLOGY Segs-Bands # 5.2 1.5 - 8.1 08/07/2013 Normal [facility] HEMATOLOGY Eosinophils 1.8 0.0 - 4.0 08/07/2013 Normal [facility] HEMATOLOGY Basophils 0.2 0.0 - 1.0 08/07/2013 Normal [facility] HEMATOLOGY Lymphocytes 18.1 20.0 - 40.0 08/07/2013 LOW [facility] HEMATOLOGY Monocytes 8.1 2.0 - 12.0 08/07/2013 Normal [facility] HEMATOLOGY Segs 71.8 45.0 - 75.0 08/07/2013 Normal [facility] HEMATOLOGY MPV 6.7 7.4 - 10.4 08/07/2013 LOW [facility] HEMATOLOGY Platelet 179 133 - 450 08/07/2013 Normal [facility] HEMATOLOGY MCHC 32.5 32.0 - 36.0 08/07/2013 Normal [facility] HEMATOLOGY RDW 15.8 11.5 - 14.5 08/07/2013 [facility] HEMATOLOGY MCV 93.6 81.0 - 99.0 08/07/2013 Normal [facility] HEMATOLOGY MCH 30.4 27.0 - 31.0 08/07/2013 Normal [facility] HEMATOLOGY Hct 29.7 36.0 - 48.0 08/07/2013 LOW [facility] HEMATOLOGY RBC X 10x6 3.17 4.20 - 5.40 08/07/2013 LOW [facility] HEMATOLOGY Hgb 9.6 12.0 - 16.0 08/07/2013 LOW [facility] HEMATOLOGY WBC X 10x3 7.2 3.7 - 10.4 08/07/2013 Normal [facility] CHEMISTRY ASPARTATE TRANSAMINASE 20 0 - 37 08/06/2013 Normal [facility] CHEMISTRY A/G Ratio 1.0 0.7 - 1.6 08/06/2013 Normal [facility] CHEMISTRY Bili Total 0.4 0.2 - 1.3 08/06/2013 Normal [facility] CHEMISTRY Alk Phos 119 39 - 136 08/06/2013 Normal [facility] CHEMISTRY ALANINE AMINOTRANSFERASE 3 3 0 - 65 08/06/2013 Normal [facility] CHEMISTRY Total Protein 6.0 6.4 - 8.4 08/06/2013 LOW [facility] CHEMISTRY B/C Ratio 4 6 - 25 08/06/2013 LOW [facility] CHEMISTRY Globulin 3.0 2.0 - 4.0 08/06/2013 Normal [facility] CHEMISTRY Albumin Lvl 3.0 3.5 - 5.0 08/06/2013 LOW [facility] HEMATOLOGY Segs 54.8 45.0 - 75.0 08/06/2013 Normal [facility] HEMATOLOGY Lymphocytes 32.2 20.0 - 40.0 08/06/2013 Normal [facility] HEMATOLOGY Basophils 0.5 0.0 - 1.0 08/06/2013 Normal [facility] HEMATOLOGY Monocytes 10.9 2.0 - 12.0 08/06/2013 Normal [facility] HEMATOLOGY Eosinophils 1.6 0.0 - 4.0 08/06/2013 Normal [facility] HEMATOLOGY Eosinophils # 0.1 0.0 - 0.5 08/06/2013 Normal [facility] HEMATOLOGY Lymphocytes # 1.8 1.0 - 5.5 08/06/2013 Normal [facility] HEMATOLOGY Monocytes # 0.6 0.0 - 0.8 08/06/2013 Normal [facility] HEMATOLOGY Segs-Bands # 3.0 1.5 - 8.1 08/06/2013 Normal [facility] Basophils # 0.0 0.0 - 0.2 08/06/[address] [facility] MCHC 32.8 32.0 - 36.0 08/06/2013 Normal [facility] MCH 30.6 27.0 - 31.0 08/06/2013 Normal [facility] RDW 16.0 11.5 - 14.5 08/06/2013 HI [facility] HEMATOLOGY MPV 6.8 7.4 - 10.4 08/06/2013 LOW [facility] Platelet 206 133 - 450 08/06/2013 Normal [facility] WBC X 10x3 5.5 3.7 - 10.4 08/06/2013 Normal [facility] Hct 29.4 36.0 - 48.0 08/06/2013 LOW [facility] MCV 93.2 81.0 - 99.0 08/06/2013 Normal [facility] RBC X 10x6 3.15 4.20 - 5.40 08/06/2013 LOW [facility] Hgb 9.6 12.0 - 16.0 08/06/[address] LOW [facility] aPTT 24.2 22.9 - 35.8 08/06/2013 Normal <sup>16</sup>Interpretive Data: Heparin Therapeutic Range: 57 - [address] [facility] PROTIME 14.2 12.0 - 14.7 08/06/2013 [address] [facility] INR 1.11 0.85 - 1.17 08/06/2013 Normal <sup>14</sup>Interpretive Data: RECOMMEN DED RANGES FOR PROTIME INR:
2.0-3.0 for most medical and surgical thromboembolic states.
2.5-3.5 for artificial heart valves and recurrent embolism.

INR SHOULD BE USED ONLY FOR PATIENTS ON STABLE ANTICOAGULANT THERAPY. [facility] INFECTIOUS DISEASES C difficile DNA Negative 1 (08/05/2013 21:00:00) Negati ve 08/06/2013 Normal <sup>1</sup>Interpretive Data: [employer] Clostridium difficile assay utilizes loop-mediated isothermal DNA amplification (LAMP) technology to detect a 204 bp region of the tcdA gene within the PaLoc gene segment present in all known toxigenic C. difficile strains.

The assay utilizes FDA cleared IVD reagents. Performance characteristics have been verified by the [facility] within the [facility]. The [facility] is authorized under the Clinical Laboratory Improvement Amendment of 1988 (CLIA-88) to perform high complexity testing. [facility] STOOL TESTS Occult Bld Stl Nega tive (08/05/2013 21:00:00) Negati ve 08/06/2013 Normal [facility] CHEMISTRY B/C Ratio 3 6 - 25 08/05/2013 LOW [facility] CHEMISTRY A/G Ratio 0.9 0.7 - 1.6 08/05/2013 Normal [facility] CHEMISTRY Globulin 3.7 2.0 - 4.0 08/05/2013 Normal [facility] CHEMISTRY ALANINE AMINOTRANSFERASE 4 6 0 - 65 08/05/2013 Normal [facility] CHEMISTRY Albumin Lvl 3.5 3.5 - 5.0 08/05/2013 Normal [facility] CHEMISTRY Total Protein 7.2 6.4 - 8.4 08/05/2013 Normal [facility] CHEMISTRY Alk Phos 149 39 - 136 08/05/2013 HI [facility] CHEMISTRY Bili Total 0.5 0.2 - 1.3 08/05/2013 Normal [facility] CHEMISTRY ASPARTATE TRANSAMINASE 31 0 - 37 08/05/2013 Normal [facility] CHEMISTRY Magnesium Lvl 1.8 1.8 - 2.4 08/05/2013 Normal [facility] CHEMISTRY S Preg Negati ve *NA* (08/05/2013 07:50:00) Negati ve 08/05/2013 [facility] HEMATOLOGY INR 1.00 0.85 - 1.17 08/05/2013 Normal <sup>15</sup>Interpretive Data: RECOMMEN DED RANGES FOR PROTIME INR:
2.0-3.0 for most medical and surgical thromboembolic states.
2.5-3.5 for artificial heart valves and recurrent embolism.

INR SHOULD BE USED ONLY FOR PATIENTS ON STABLE ANTICOAGULANT THERAPY. [facility] HEMATOLOGY aPTT 31.6 22.9 - 35.8 08/05/2013 Normal <sup>17</sup>Interpretive Data: Heparin Therapeutic Range: 57 - 92 Seconds [facility] HEMATOLOGY PROTIME 13.1 12.0 - 14.7 08/05/2013 Normal [facility] CHEMISTRY Chloride Lvl 103 95 - 109 08/03/2013 Normal [facility] CHEMISTRY Potassium Lvl 3.4 3.5 - 5.1 08/03/2013 LOW [facility] CHEMISTRY Sodium Lvl 141 135 - 145 08/03/2013 Normal [facility] CHEMISTRY eGFR 9 08/03/2013 <sup>1</sup>Result Comment: The eGFR is calculated using the CKD-EPI formula. In most young, healthy individuals the eGFR will be >90 mL/min/1.73m2. The eGFR declines with age. An eGFR of 60-89 may be normal in some populations, particularly the elderly, for whom the CKD-EPI formula has not been extensively validated. Use of the eGFR is not recommended in the following populations:& lt;br/>
Individuals with unstable creatinine concentrations, including patients and those with serious co-morbid conditions.

Patients with extremes in muscle mass or diet.

The data above are obtained from the National Kidney Disease Education Program (NKDEP) which additionally recommends that when the eGFR is used in patients with extremes of body mass index for purposes of drug dosing, the eGFR should be multiplied by the estimated BMI. [facility] CHEMISTRY Alk Phos 159 39 - 136 08/03/2013 HI [facility] CHEMISTRY ALANINE AMINOTRANSFERASE 3 9 0 - 65 08/03/2013 Normal [facility] CHEMISTRY Calcium Lvl 8.9 8.5 - 10.5 08/03/2013 Normal [facility] CHEMISTRY Albumin Lvl 3.6 3.5 - 5.0 08/03/2013 Normal [facility] CHEMISTRY Total Protein 7.6 6.4 - 8.4 08/03/2013 Normal [facility] CHEMISTRY Bili Total 0.5 0.2 - 1.3 08/03/2013 Normal [facility] CHEMISTRY B/C Ratio 2 6 - 25 08/03/2013 LOW [facility] CHEMISTRY AGAP 13.4 10.0 - 20.0 08/03/2013 Normal [facility] CHEMISTRY ASPARTATE TRANSAMINASE 28 0 - 37 08/03/2013 Normal [facility] CHEMISTRY Globulin 4.0 2.0 - 4.0 08/03/2013 Normal [facility] CHEMISTRY A/G Ratio 0.9 0.7 - 1.6 08/03/2013 Normal [facility] CHEMISTRY Creatinine Lvl 5.4 0.5 - 1.4 08/03/2013 [facility] CHEMISTRY BUN 12 7 - 22 08/03/2013 Normal [facility] CHEMISTRY CO2 28 24 - 32 08/03/2013 Normal [facility] CHEMISTRY Glucose Lvl 57 70 - 99 08/03/2013 LOW <sup>2</sup>Interpretive Data: Adult ref erence range values reflect the clinical guidelines
of the [place] [employer]. [facility] CHEMISTRY Lipase Lvl 108 73 - 393 08/03/2013 Normal [facility] CHEMISTRY Total CK 31 12 - 191 08/03/2013 Normal [facility] CHEMISTRY Troponin-I <0.02 0.00 - 0.40 08/03/2013 Normal [facility] CHEMISTRY CK MB 0.6 0.5 - 3.6 08/03/2013 Normal [facility] CHEMISTRY CK-MB INDEX 1.9 0.0 - 2.5 08/03/2013 Normal [facility] HEMATOLOGY Hgb 11.5 12.0 - 16.0 08/03/2013 LOW [facility] HEMATOLOGY RBC X 10x6 3.82 4.20 - 5.40 08/03/2013 LOW [facility] HEMATOLOGY WBC X 10x3 7.3 3.7 - 10.4 08/03/2013 Normal [facility] HEMATOLOGY MPV 6.7 7.4 - 10.4 08/03/2013 LOW [facility] HEMATOLOGY Platelet 266 133 - 450 08/03/2013 Normal [facility] HEMATOLOGY MCV 93.8 81.0 - 99.0 08/03/2013 Normal [facility] HEMATOLOGY Hct 35.8 36.0 - 48.0 08/03/2013 LOW [facility] HEMATOLOGY RDW 15.7 11.5 - 14.5 08/03/2013 HI [facility] HEMATOLOGY MCHC 32.2 32.0 - 36.0 08/03/2013 Normal [facility] HEMATOLOGY MCH 30.2 27.0 - 31.0 08/03/2013 Normal [facility] HEMATOLOGY Monocytes 9.3 2.0 - 12.0 08/03/2013 Normal [facility] HEMATOLOGY Eosinophils 0.5 0.0 - 4.0 08/03/2013 Normal [facility] HEMATOLOGY Basophils 0.4 0.0 - 1.0 08/03/2013 Normal [facility] HEMATOLOGY Segs 72.4 45.0 - 75.0 08/03/2013 Normal [facility] HEMATOLOGY Lymphocytes 17.4 20.0 - 40.0 08/03/2013 LOW [facility] HEMATOLOGY Monocytes # 0.7 0.0 - 0.8 08/03/2013 Normal [facility] HEMATOLOGY Eosinophils # 0.0 0.0 - 0.5 08/03/2013 Normal [facility] HEMATOLOGY Basophils # 0.0 0.0 - 0.2 08/03/2013 Normal [facility] HEMATOLOGY Segs-Bands # 5.3 1.5 - 8.1 08/03/2013 Normal [facility] HEMATOLOGY Lymphocytes # 1.3 1.0 - 5.5 08/03/2013 Normal [facility] BEDSIDE GLUCOSE TESTING Glucose POC 186 70 - 99 07/30/2013 [facility] <sup>2</sup>Interpretive Data: Upper Reportable Limit: 200 mg/dL. [facility] BEDSIDE GLUCOSE TESTING Gluc POC Com ment 1 Notify RN/ 07/30/2013 [facility] BEDSIDE GLUCOSE TESTING Glucose POC 93 70 - 99 07/30/2013 Normal <sup>3</sup>Interpretive Data: Upper Reportable Limit: 200 mg/dL. [facility] BEDSIDE GLUCOSE TESTING Gluc POC Com ment 1 Notify RN/ 07/30/2013 [facility] BEDSIDE GLUCOSE TESTING Gluc POC Com ment 1 Notify RN/ 07/30/2013 [facility] BEDSIDE GLUCOSE TESTING Glucose POC 114 70 - 99 07/30/2013 [facility] <sup>4</sup>Interpretive Data: Upper Reportable Limit: 200 mg/dL. [facility] CHEMISTRY eGFR 7 07/28/2013 <sup>5</sup>Result Comment: The eGFR is calculated using the CKD-EPI formula. In most young, healthy individuals the eGFR will be >90 mL/min/1.73m2. The eGFR declines with age. An eGFR of 60-89 may be normal in some populations, particularly the elderly, for whom the CKD-EPI formula has not been extensively validated. Use of the eGFR is not recommended in the following populations:& lt;br/>
Individuals with unstable creatinine concentrations, including patients and those with serious co-morbid conditions.

Patients with extremes in muscle mass or diet.

The data above are obtained from the National Kidney Disease Education Program (NKDEP) which additionally recommends that when the eGFR is used in patients with extremes of body mass index for purposes of drug dosing, the eGFR should be multiplied by the estimated BMI. [facility] CHEMISTRY Calcium Lvl 7.7 8.5 - 10.5 07/28/2013 LOW [facility] CHEMISTRY Glucose Lvl 59 70 - 99 07/28/2013 LOW <sup>8</sup>Interpretive Data: Adult ref erence range values reflect the clinical guidelines
of the [place] [employer]. [facility] CHEMISTRY Creatinine Lvl 6.1 0.5 - 1.4 07/28/2013 [facility] CHEMISTRY BUN 14 7 - 22 07/28/2013 Normal [facility] CHEMISTRY AGAP 14.7 10.0 - 20.0 07/28/2013 Normal [facility] CHEMISTRY CO2 28 24 - 32 07/28/2013 Normal [facility] CHEMISTRY Sodium Lvl 143 135 - 145 07/28/2013 Normal [facility] CHEMISTRY Potassium Lvl 3.7 3.5 - 5.1 07/28/2013 Normal [facility] CHEMISTRY Chloride Lvl 104 95 - 109 07/28/2013 Normal [facility] CHEMISTRY Lipase Lvl 165 73 - 393 07/28/2013 Normal [facility] CHEMISTRY LDL CHOLESTEROL 55 <=99 07/28/2013 Normal [facility] CHEMISTRY Chol 152 <=199 07/28/2013 Normal [facility] CHEMISTRY Trig 287 <=149 07/28/2013 [facility] CHEMISTRY HDL 40 >=61 07/28/2013 LOW [facility] CHEMISTRY CHD Risk 3.80 3.90 - 5.80 07/28/2013 LOW [facility] HEMATOLOGY MPV 6.9 7.4 - 10.4 07/28/2013 LOW [facility] HEMATOLOGY Platelet 186 133 - 450 07/28/2013 Normal [facility] HEMATOLOGY RDW 15.2 11.5 - 14.5 07/28/2013 [facility] HEMATOLOGY MCHC 32.4 32.0 - 36.0 07/28/2013 Normal [facility] HEMATOLOGY MCH 30.3 27.0 - 31.0 07/28/2013 Normal [facility] HEMATOLOGY MCV 93.7 81.0 - 99.0 07/28/2013 Normal [facility] HEMATOLOGY Hgb 9.4 12.0 - 16.0 07/28/2013 LOW [facility] HEMATOLOGY Hct 29.0 36.0 - 48.0 07/28/2013 LOW [facility] HEMATOLOGY RBC X 10x6 3.09 4.20 - 5.40 07/28/2013 LOW [facility] HEMATOLOGY WBC X 10x3 6.0 3.7 - 10.4 07/28/2013 Normal [facility] HEMATOLOGY Eosinophils # 0.3 0.0 - 0.5 07/28/2013 Normal [facility] HEMATOLOGY Basophils # 0.0 0.0 - 0.2 07/28/2013 Normal [facility] HEMATOLOGY Monocytes # 0.6 0.0 - 0.8 07/28/2013 Normal [facility] HEMATOLOGY Lymphocytes 34.3 20.0 - 40.0 07/28/2013 Normal [facility] HEMATOLOGY Monocytes 9.5 2.0 - 12.0 07/28/2013 Normal [facility] HEMATOLOGY Lymphocytes # 2.0 1.0 - 5.5 07/28/2013 Normal [facility] HEMATOLOGY Basophils 0.5 0.0 - 1.0 07/28/2013 Normal [facility] HEMATOLOGY Segs-Bands # 3.0 1.5 - 8.1 07/28/2013 Normal [facility] HEMATOLOGY Eosinophils 5.0 0.0 - 4.0 07/28/2013 HI [facility] HEMATOLOGY Segs 50.7 45.0 - 75.0 07/28/2013 Normal [facility] CHEMISTRY Lipase Lvl 251 73 - 393 07/27/2013 Normal [facility] CHEMISTRY Chloride Lvl 105 95 - 109 07/27/2013 Normal [facility] CHEMISTRY Potassium Lvl 3.6 3.5 - 5.1 07/27/2013 Normal [facility] CHEMISTRY Sodium Lvl 144 135 - 145 07/27/2013 Normal [facility] CHEMISTRY eGFR 11 07/27/2013 <sup>6</sup>Result Comment: The eGFR is calculated using the CKD-EPI formula. In most young, healthy individuals the eGFR will be >90 mL/min/1.73m2. The eGFR declines with age. An eGFR of 60-89 may be normal in some populations, particularly the elderly, for whom the CKD-EPI formula has not been extensively validated. Use of the eGFR is not recommended in the following populations:& lt;br/>
Individuals with unstable creatinine concentrations, including patients and those with serious co-morbid conditions.

Patients with extremes in muscle mass or diet.

The data above are obtained from the National Kidney Disease Education Program (NKDEP) which additionally recommends that when the eGFR is used in patients with extremes of body mass index for purposes of drug dosing, the eGFR should be multiplied by the estimated BMI. [facility] CHEMISTRY Creatinine Lvl 4.3 0.5 - 1.4 07/27/2013 [facility] CHEMISTRY Calcium Lvl 8.0 8.5 - 10.5 07/27/2013 LOW [facility] CHEMISTRY CO2 28 24 - 32 07/27/2013 Normal [facility] CHEMISTRY AGAP 14.6 10.0 - 20.0 07/27/2013 Normal [facility] CHEMISTRY Glucose Lvl 69 70 - 99 07/27/2013 LOW <sup>9</sup>Interpretive Data: Adult ref erence range values reflect the clinical guidelines
of the [place] [employer]. [facility] CHEMISTRY BUN 9 7 - 22 07/27/2013 Normal [facility] INFECTIOUS DISEASES C difficile DNA Negative 1 (07/26/2013 17:28:33) Negati ve 07/26/2013 Normal <sup>1</sup>Interpretive Data: [employer] Clostridium difficile assay utilizes loop-mediated isothermal DNA amplification (LAMP) technology to detect a 204 bp region of the tcdA gene within the PaLoc gene segment present in all known toxigenic C. difficile strains.

The assay utilizes FDA cleared IVD reagents. Performance characteristics have been verified by the [facility] within the [facility]. The [facility] is authorized under the Clinical Laboratory Improvement Amendment of 1988 (CLIA-88) to perform high complexity testing. [facility] CHEMISTRY Calcium Lvl 7.0 8.5 - 10.5 07/26/2013 CRIT <sup>11</sup>Result Comment: Critical Re sult(s) called to seth plasencia at 07/26/2013 06:17 byemw . Read back OK. [facility] CHEMISTRY eGFR 7 07/26/2013 <sup>7</sup>Result Comment: The eGFR is calculated using the CKD-EPI formula. In most young, healthy individuals the eGFR will be >90 mL/min/1.73m2. The eGFR declines with age. An eGFR of 60-89 may be normal in some populations, particularly the elderly, for whom the CKD-EPI formula has not been extensively validated. Use of the eGFR is not recommended in the following populations:& lt;br/>
Individuals with unstable creatinine concentrations, including patients and those with serious co-morbid conditions.

Patients with extremes in muscle mass or diet.

The data above are obtained from the National Kidney Disease Education Program (NKDEP) which additionally recommends that when the eGFR is used in patients with extremes of body mass index for purposes of drug dosing, the eGFR should be multiplied by the estimated BMI. [facility] CHEMISTRY AGAP 17.2 10.0 - 20.0 07/26/2013 Normal [facility] CHEMISTRY CO2 23 24 - 32 07/26/2013 LOW [facility] CHEMISTRY Chloride Lvl 109 95 - 109 07/26/2013 Normal [facility] CHEMISTRY Potassium Lvl 3.2 3.5 - 5.1 07/26/2013 [facility] CHEMISTRY Sodium Lvl 146 135 - 145 07/26/2013 [facility] CHEMISTRY Creatinine Lvl 6.0 0.5 - 1.4 07/26/2013 [facility] CHEMISTRY BUN 19 7 - 22 07/26/2013 Normal [facility] CHEMISTRY Glucose Lvl 101 70 - 99 07/26/2013 [facility] <sup>10</sup>Interpretive Data: Adult re ference range values reflect the clinical guidelines
of the [place] [employer]. [facility] HEMATOLOGY Hgb 8.9 12.0 - 16.0 07/26/2013 [facility] HEMATOLOGY MCV 91.7 81.0 - 99.0 07/26/2013 Normal [facility] HEMATOLOGY Hct 27.5 36.0 - 48.0 07/26/2013 [facility] HEMATOLOGY MCHC 32.2 32.0 - 36.0 07/26/2013 Normal [facility] HEMATOLOGY MCH 29.5 27.0 - 31.0 07/26/2013 Normal [facility] HEMATOLOGY RDW 15.0 11.5 - 14.5 07/26/2013 [facility] HEMATOLOGY MPV 6.7 7.4 - 10.4 07/26/2013 [facility] HEMATOLOGY Platelet 184 133 - 450 07/26/2013 Normal [facility] HEMATOLOGY RBC X 10x6 3.00 4.20 - 5.40 07/26/2013 [facility] HEMATOLOGY WBC X 10x3 5.5 3.7 - 10.4 07/26/2013 Normal [facility] HEMATOLOGY Segs 58.9 45.0 - 75.0 07/26/2013 Normal [facility] HEMATOLOGY Basophils # 0.0 0.0 - 0.2 07/26/2013 Normal [facility] HEMATOLOGY Eosinophils # 0.2 0.0 - 0.5 07/26/2013 Normal [facility] HEMATOLOGY Monocytes # 0.6 0.0 - 0.8 07/26/2013 Normal [facility] HEMATOLOGY Lymphocytes 26.7 20.0 - 40.0 07/26/2013 Normal [facility] HEMATOLOGY Monocytes 10.2 2.0 - 12.0 07/26/2013 Normal [facility] HEMATOLOGY Eosinophils 3.8 0.0 - 4.0 07/26/2013 Normal [facility] HEMATOLOGY Segs-Bands # 3.3 1.5 - 8.1 07/26/2013 Normal [facility] HEMATOLOGY Basophils 0.4 0.0 - 1.0 07/26/2013 Normal [facility] HEMATOLOGY Lymphocytes # 1.5 1.0 - 5.5 07/26/2013 Normal [facility] CHEMISTRY Lipase Lvl 296 73 - 393 07/25/2013 Normal [facility] CHEMISTRY LDL CHOLESTEROL See No te mg/dL <=99 07/25/2013 <sup>12</sup>Result Comment: LDL cholest kita cannot be calculated due to very high triglycerides (>400 mg/dL). Recommend Direct LDL if clinically indicated. [facility] CHEMISTRY CHD Risk 6.12 3.90 - 5.80 07/25/2013 [facility] CHEMISTRY HDL 32 >=61 07/25/2013 LOW [facility] CHEMISTRY Trig 405 <=149 07/25/2013 [facility] CHEMISTRY Chol 196 <=199 07/25/2013 Normal [facility] CHEMISTRY ALANINE AMINOTRANSFERASE 8 3 0 - 65 07/25/2013 [facility] CHEMISTRY B/C Ratio 2 6 - 25 07/25/2013 LOW [facility] CHEMISTRY Total Protein 6.9 6.4 - 8.4 07/25/2013 Normal [facility] CHEMISTRY Alk Phos 165 39 - 136 07/25/2013 [facility] CHEMISTRY Albumin Lvl 3.3 3.5 - 5.0 07/25/2013 LOW [facility] CHEMISTRY Bili Total 0.6 0.2 - 1.3 07/25/2013 Normal [facility] CHEMISTRY ASPARTATE TRANSAMINASE 47 0 - 37 07/25/2013 [facility] CHEMISTRY Globulin 3.6 2.0 - 4.0 07/25/2013 Normal [facility] CHEMISTRY A/G Ratio 0.9 0.7 - 1.6 07/25/2013 Normal [facility] HEMATOLOGY Basophils # 0.0 0.0 - 0.2 07/25/2013 Normal [facility] HEMATOLOGY Eosinophils # 0.2 0.0 - 0.5 07/25/2013 Normal [facility] HEMATOLOGY Monocytes # 0.8 0.0 - 0.8 07/25/2013 Normal [facility] HEMATOLOGY Lymphocytes # 1.4 1.0 - 5.5 07/25/2013 Normal [facility] HEMATOLOGY Segs-Bands # 4.0 1.5 - 8.1 07/25/2013 Normal [facility] HEMATOLOGY Basophils 0.2 0.0 - 1.0 07/25/2013 Normal [facility] HEMATOLOGY Monocytes 12.5 2.0 - 12.0 07/25/2013 [facility] HEMATOLOGY Lymphocytes 21.2 20.0 - 40.0 07/25/2013 Normal [facility] HEMATOLOGY Segs 62.8 45.0 - 75.0 07/25/2013 Normal [facility] HEMATOLOGY Eosinophils 3.3 0.0 - 4.0 07/25/2013 Normal [facility] HEMATOLOGY RDW 15.4 11.5 - 14.5 07/25/2013 [facility] HEMATOLOGY Platelet 209 133 - 450 07/25/2013 Normal [facility] HEMATOLOGY MCV 92.2 81.0 - 99.0 07/25/2013 Normal [facility] HEMATOLOGY MCHC 32.4 32.0 - 36.0 07/25/2013 Normal [facility] HEMATOLOGY MCH 29.8 27.0 - 31.0 07/25/2013 Normal [facility] HEMATOLOGY WBC X 10x3 6.4 3.7 - 10.4 07/25/2013 Normal [facility] HEMATOLOGY Hct 28.8 36.0 - 48.0 07/25/2013 LOW [facility] HEMATOLOGY Hgb 9.3 12.0 - 16.0 07/25/2013 LOW [facility] HEMATOLOGY RBC X 10x6 3.13 4.20 - 5.40 07/25/2013 LOW [facility] HEMATOLOGY MPV 6.8 7.4 - 10.4 07/25/2013 LOW [facility] CHEMISTRY CK-MB INDEX <2.1 0.0 - 2.5 07/24/2013 Normal [facility] CHEMISTRY Bili Total 0.4 0.2 - 1.3 07/24/2013 Normal [facility] CHEMISTRY ASPARTATE TRANSAMINASE 41 0 - 37 07/24/2013 [facility] CHEMISTRY Alk Phos 211 39 - 136 07/24/2013 [facility] CHEMISTRY ALANINE AMINOTRANSFERASE 1 13 0 - 65 07/24/2013 [facility] CHEMISTRY Albumin Lvl 3.4 3.5 - 5.0 07/24/2013 LOW [facility] CHEMISTRY Total Protein 7.9 6.4 - 8.4 07/24/2013 Normal [facility] CHEMISTRY A/G Ratio 0.8 0.7 - 1.6 07/24/2013 Normal [facility] CHEMISTRY B/C Ratio 4 6 - 25 07/24/2013 LOW [facility] CHEMISTRY Globulin 4.5 2.0 - 4.0 07/24/2013 [facility] CHEMISTRY Amylase Lvl 212 25 - 115 07/24/2013 [facility] CHEMISTRY Troponin-I <0.02 0.00 - 0.40 07/24/2013 Normal [facility] CHEMISTRY CK MB <0.5 0.5 - 3.6 07/24/2013 Normal [facility] CHEMISTRY Total CK 24 12 - 191 07/24/2013 Normal [facility] HEMATOLOGY RBC Morph Nicolasa l (07/24/2013 06:45:00) 07/24/2013 Normal [facility] HEMATOLOGY Plt Morph Nicolasa l (07/24/2013 06:45:00) 07/24/2013 Normal [facility] IMMUNOLOGY Hep Bs Ag Negat sue *NA* (07/24/2013 06:45:00) Negati ve 07/24/2013 [facility] CHEMISTRY Magnesium Lvl 2.2 1.8 - 2.4 07/03/2013 Normal [facility] CHEMISTRY Phosphorus 7.3 2.5 - 4.5 07/03/2013 [facility] CHEMISTRY AGAP 22.7 10.0 - 20.0 07/03/2013 [facility] CHEMISTRY eGFR 4 07/03/2013 NA <sup>4</sup>Result Comment: The eGFR is calculated using the CKD-EPI formula. In most young, healthy individuals the eGFR will be >90 mL/min/1.73m2. The eGFR declines with age. An eGFR of 60-89 may be normal in some populations, particularly the elderly, for whom the CKD-EPI formula has not been extensively validated. Use of the eGFR is not recommended in the following populations:& lt;br/>
Individuals with unstable creatinine concentrations, including patients and those with serious co-morbid conditions.

Patients with extremes in muscle mass or diet.

The data above are obtained from the National Kidney Disease Education Program (NKDEP) which additionally recommends that when the eGFR is used in patients with extremes of body mass index for purposes of drug dosing, the eGFR should be multiplied by the estimated BMI. [facility] CHEMISTRY CO2 20 24 - 32 07/03/2013 LOW [facility] CHEMISTRY Calcium Lvl 8.2 8.5 - 10.5 07/03/2013 LOW [facility] CHEMISTRY Potassium Lvl 4.7 3.5 - 5.1 07/03/2013 Normal [facility] CHEMISTRY Chloride Lvl 98 95 - 109 07/03/2013 Normal [facility] CHEMISTRY Glucose Lvl 120 70 - 99 07/03/2013 [place] <sup>7</sup>Interpretive Data: Adult ref erence range values reflect the clinical guidelines
of the [place] [employer]. [facility] CHEMISTRY BUN 65 7 - 22 07/03/2013 [facility] CHEMISTRY Creatinine Lvl 10.3 0.5 - 1.4 07/03/2013 [facility] CHEMISTRY Sodium Lvl 136 135 - 145 07/03/2013 [facility] HEMATOLOGY MPV 7.3 7.4 - 10.4 07/03/2013 [facility] HEMATOLOGY Platelet 282 133 - 450 07/03/2013 [facility] HEMATOLOGY MCH 30.2 27.0 - 31.0 07/03/2013 [facility] HEMATOLOGY MCHC 32.5 32.0 - 36.0 07/03/2013 [facility] HEMATOLOGY MCV 93.1 81.0 - 99.0 07/03/2013 [facility] HEMATOLOGY RDW 15.0 11.5 - 14.5 07/03/2013 [facility] HEMATOLOGY Hct 33.2 36.0 - 48.0 07/03/2013 [facility] HEMATOLOGY WBC 8.7 3.7 - 10.4 07/03/2013 [facility] HEMATOLOGY Hgb 10.8 12.0 - 16.0 07/03/2013 [facility] HEMATOLOGY RBC 3.56 4.20 - 5.40 07/03/2013 [facility] HEMATOLOGY Lymphocytes # 1.4 1.0 - 5.5 07/03/2013 [facility] HEMATOLOGY Monocytes # 0.7 0.0 - 0.8 07/03/2013 [facility] HEMATOLOGY Segs-Bands # 6.4 1.5 - 8.1 07/03/2013 [facility] HEMATOLOGY Basophils 0.4 0.0 - 1.0 07/03/2013 [facility] HEMATOLOGY Eosinophils # 0.2 0.0 - 0.5 07/03/2013 [facility] HEMATOLOGY Eosinophils 2.1 0.0 - 4.0 07/03/2013 [facility] HEMATOLOGY Monocytes 8.1 2.0 - 12.0 07/03/2013 [facility] HEMATOLOGY Lymphocytes 15.9 20.0 - 40.0 07/03/2013 [facility] HEMATOLOGY Segs 73.5 45.0 - 75.0 07/03/2013 Normal [facility] BEDSIDE GLUCOSE TESTING Gluc POC Lif scn 122 70 - 99 07/03/2013 [facility] <sup>1</sup>Interpretive Data: Upper Reportable Limit: 200 mg/dL. [facility] BEDSIDE GLUCOSE TESTING Comment1 Notify RN/ 07/03/2013 NA [facility] BEDSIDE GLUCOSE TESTING Gluc POC Lif scn 158 70 - 99 07/02/2013 [facility] <sup>2</sup>Interpretive Data: Upper Reportable Limit: 200 mg/dL. [facility] BEDSIDE GLUCOSE TESTING Comment1 Notify RN/ 07/02/2013 NA [facility] BEDSIDE GLUCOSE TESTING Comment1 Notify RN/ 07/02/2013 NA [facility] BEDSIDE GLUCOSE TESTING Gluc POC Lif scn 141 70 - 99 07/02/2013 [facility] <sup>3</sup>Interpretive Data: Upper Reportable Limit: 200 mg/dL. [facility] CHEMISTRY Phosphorus 7.3 2.5 - 4.5 06/30/2013 [facility] CHEMISTRY AGAP 24.5 10.0 - 20.0 06/30/2013 HI [facility] CHEMISTRY eGFR 5 06/30/2013 NA <sup>5</sup>Result Comment: The eGFR is calculated using the CKD-EPI formula. In most young, healthy individuals the eGFR will be >90 mL/min/1.73m2. The eGFR declines with age. An eGFR of 60-89 may be normal in some populations, particularly the elderly, for whom the CKD-EPI formula has not been extensively validated. Use of the eGFR is not recommended in the following populations:& lt;br/>
Individuals with unstable creatinine concentrations, including patients and those with serious co-morbid conditions.

Patients with extremes in muscle mass or diet.

The data above are obtained from the National Kidney Disease Education Program (NKDEP) which additionally recommends that when the eGFR is used in patients with extremes of body mass index for purposes of drug dosing, the eGFR should be multiplied by the estimated BMI. [facility] CHEMISTRY CO2 21 24 - 32 06/30/2013 LOW [facility] CHEMISTRY Chloride Lvl 95 95 - 109 06/30/2013 Normal [facility] CHEMISTRY Potassium Lvl 4.5 3.5 - 5.1 06/30/2013 Normal [facility] CHEMISTRY Glucose Lvl 116 70 - 99 06/30/2013 [place] <sup>8</sup>Interpretive Data: Adult ref erence range values reflect the clinical guidelines
of the [place] [employer]. [facility] CHEMISTRY Sodium Lvl 136 135 - 145 06/30/2013 Normal [facility] CHEMISTRY Creatinine Lvl 8.0 0.5 - 1.4 06/30/2013 [facility] CHEMISTRY BUN 43 7 - 22 06/30/2013 [facility] CHEMISTRY Calcium Lvl 8.9 8.5 - 10.5 06/30/2013 [facility] CHEMISTRY Magnesium Lvl 2.2 1.8 - 2.4 06/30/2013 [facility] HEMATOLOGY Monocytes 9.4 2.0 - 12.0 06/30/2013 [facility] HEMATOLOGY Lymphocytes 16.7 20.0 - 40.0 06/30/2013 [facility] HEMATOLOGY Segs-Bands # 5.7 1.5 - 8.1 06/30/2013 [facility] HEMATOLOGY Lymphocytes # 1.4 1.0 - 5.5 06/30/2013 [facility] HEMATOLOGY Segs 69.4 45.0 - 75.0 06/30/2013 [facility] HEMATOLOGY Eosinophils 4.1 0.0 - 4.0 06/30/2013 [facility] HEMATOLOGY Basophils 0.4 0.0 - 1.0 06/30/2013 [facility] HEMATOLOGY Eosinophils # 0.3 0.0 - 0.5 06/30/2013 [facility] HEMATOLOGY Monocytes # 0.8 0.0 - 0.8 06/30/2013 [facility] HEMATOLOGY MPV 7.5 7.4 - 10.4 06/30/2013 [facility] HEMATOLOGY RDW 15.8 11.5 - 14.5 06/30/2013 [facility] HEMATOLOGY MCHC 32.5 32.0 - 36.0 06/30/2013 [facility] HEMATOLOGY Hct 32.2 36.0 - 48.0 06/30/2013 [facility] HEMATOLOGY MCV 93.0 81.0 - 99.0 06/30/2013 [facility] HEMATOLOGY RBC 3.46 4.20 - 5.40 06/30/2013 [facility] HEMATOLOGY MCH 30.2 27.0 - 31.0 06/30/2013 Normal [facility] HEMATOLOGY Hgb 10.5 12.0 - 16.0 06/30/2013 [facility] HEMATOLOGY Platelet 267 133 - 450 06/30/2013 Normal [facility] HEMATOLOGY WBC 8.3 3.7 - 10.4 06/30/2013 Normal [facility] CHEMISTRY eGFR 9 06/29/2013 NA <sup>6</sup>Result Comment: The eGFR is calculated using the CKD-EPI formula. In most young, healthy individuals the eGFR will be >90 mL/min/1.73m2. The eGFR declines with age. An eGFR of 60-89 may be normal in some populations, particularly the elderly, for whom the CKD-EPI formula has not been extensively validated. Use of the eGFR is not recommended in the following populations:& lt;br/>
Individuals with unstable creatinine concentrations, including patients and those with serious co-morbid conditions.

Patients with extremes in muscle mass or diet.

The data above are obtained from the National Kidney Disease Education Program (NKDEP) which additionally recommends that when the eGFR is used in patients with extremes of body mass index for purposes of drug dosing, the eGFR should be multiplied by the estimated BMI. [facility] CHEMISTRY Chloride Lvl 96 95 - 109 06/29/2013 Normal [facility] CHEMISTRY CO2 24 24 - 32 06/29/2013 Normal [facility] CHEMISTRY Potassium Lvl 4.5 3.5 - 5.1 06/29/2013 Normal [facility] CHEMISTRY Sodium Lvl 134 135 - 145 06/29/2013 LOW [facility] CHEMISTRY BUN 17 7 - 22 06/29/2013 [facility] CHEMISTRY Creatinine Lvl 5.0 0.5 - 1.4 06/29/2013 [facility] CHEMISTRY Glucose Lvl 128 70 - 99 06/29/2013 [place] <sup>9</sup>Interpretive Data: Adult ref erence range values reflect the clinical guidelines
of the [place] [employer]. [facility] CHEMISTRY Calcium Lvl 8.6 8.5 - 10.5 06/29/2013 [facility] CHEMISTRY AGAP 18.5 10.0 - 20.0 06/29/2013 [facility] HEMATOLOGY RBC 3.43 4.20 - 5.40 06/29/2013 [facility] HEMATOLOGY WBC 7.3 3.7 - 10.4 06/29/2013 [facility] HEMATOLOGY MPV 7.5 7.4 - 10.4 06/29/2013 [facility] HEMATOLOGY MCV 93.7 81.0 - 99.0 06/29/2013 [facility] HEMATOLOGY RDW 15.6 11.5 - 14.5 06/29/2013 [facility] HEMATOLOGY Platelet 241 133 - 450 06/29/2013 [facility] HEMATOLOGY MCHC 33.5 32.0 - 36.0 06/29/2013 [facility] HEMATOLOGY MCH 31.4 27.0 - 31.0 06/29/2013 [facility] HEMATOLOGY Hgb 10.8 12.0 - 16.0 06/29/2013 [facility] HEMATOLOGY Hct 32.1 36.0 - 48.0 06/29/2013 [facility] HEMATOLOGY Lymphocytes 12.7 20.0 - 40.0 06/29/2013 [facility] HEMATOLOGY Segs 75.7 45.0 - 75.0 06/29/2013 [facility] HEMATOLOGY Monocytes # 0.5 0.0 - 0.8 06/29/2013 [facility] HEMATOLOGY Eosinophils # 0.3 0.0 - 0.5 06/29/2013 [facility] HEMATOLOGY Lymphocytes # 0.9 1.0 - 5.5 06/29/2013 [facility] HEMATOLOGY Eosinophils 4.5 0.0 - 4.0 06/29/2013 [facility] HEMATOLOGY Segs-Bands # 5.6 1.5 - 8.1 06/29/2013 [facility] HEMATOLOGY Basophils 0.3 0.0 - 1.0 06/29/2013 [facility] HEMATOLOGY Monocytes 6.8 2.0 - 12.0 06/29/2013 [facility] HEMATOLOGY PTT 66.6 22.9 - 35.8 06/29/2013 [place] <sup>11</sup>Interpretive Data: Heparin Therapeutic Range: 57 - 92 Seconds [facility] HEMATOLOGY PT 13.8 12.0 - 14.7 06/29/2013 Normal [facility] HEMATOLOGY INR 1.07 0.85 - 1.17 06/29/2013 Normal <sup>10</sup>Interpretive Data: RECOMMEN DED RANGES FOR PROTIME INR:
2.0-3.0 for most medical and surgical thromboembolic states.
2.5-3.5 for artificial heart valves and recurrent embolism.

INR SHOULD BE USED ONLY FOR PATIENTS ON STABLE ANTICOAGULANT THERAPY. [facility] CHEMISTRY Phosphorus 6.3 2.5 - 4.5 06/28/2013 HI [facility] CHEMISTRY Magnesium Lvl 2.0 1.8 - 2.4 06/28/2013 Normal [facility] IMMUNOLOGY Hep C Ab Negat sue *NA* (06/23/2013 08:14:00) Negati ve 06/23/2013 NA [facility] IMMUNOLOGY Hep Bs Ag Negat sue *NA* (06/23/2013 08:14:00) Negati ve 06/23/2013 NA [facility] IMMUNOLOGY Hep Bs Ab <3.1 <=7.4 06/23/2013 Normal <sup>12</sup>Interpretive Data: <=7.4 mI U/mL--------Negative for Anti- HBs. Not immune to HBV infection.

7.5-12.4 mIU/mL--Borderline for Anti- HBs and immune status
should be further assessed by considering other factors such
as clinical status follow-up testing, associated risk factors,
and the use of additional diagnostic information.

>12.4 mIU/mL-------Positive for Anti-HBs. Immune to HBV infection [facility] IMMUNOLOGY Hep B Core IgM Negat sue *NA* (06/23/2013 08:14:00) Negati ve 06/23/2013 NA [facility] IMMUNOLOGY Hep B Core Ab Negat sue *NA* (06/23/2013 08:14:00) Negati ve 06/23/2013 NA [facility] HEMATOLOGY Anisocyte 1+ *ABN* (06/23/2013 01:54:00) None S een 06/23/2013 ABN [facility] HEMATOLOGY Plt Morph Nicolasa l (06/23/2013 01:54:00) 06/23/2013 Normal [facility] CHEMISTRY Potassium WB 5.7 3.5 - 5.1 06/22/2013 [facility] BLOOD BANK RESULTS ABO/Rh O POS 06/22/2013 Unknown [facility] BLOOD BANK RESULTS Antibody Scrn Negative (06/22/2013 07:45:00) 06/22/2013 Normal [facility] CHEMISTRY AST 44 0 - 37 06/13/2013 [facility] CHEMISTRY Total Protein 7.9 6.4 - 8.4 06/13/2013 Normal [facility] CHEMISTRY Bili Total 0.3 0.2 - 1.3 06/13/2013 Normal [facility] CHEMISTRY Albumin Lvl 3.7 3.5 - 5.0 06/13/2013 Normal [facility] CHEMISTRY Alk Phos 242 39 - 136 06/13/2013 [facility] CHEMISTRY ALT 57 0 - 65 06/13/2013 Normal [facility] CHEMISTRY Globulin 4.2 2.0 - 4.0 06/13/2013 [facility] CHEMISTRY B/C Ratio 9 6 - 25 06/13/2013 Normal [facility] CHEMISTRY A/G Ratio 0.9 0.7 - 1.6 06/13/2013 Normal [facility] CHEMISTRY POC Potassium 5.2 3.5 - 5.1 02/23/2013 [facility] BEDSIDE GLUCOSE TESTING Gluc POC Lif scn 171 70 - 99 02/23/2013 [place] <sup>1</sup>Interpretive Data: Upper Reportable Limit: 200 mg/dL. [facility] CHEMISTRY Phosphorus 5.2 2.5 - 4.5 01/12/2013 [facility] CHEMISTRY B/C Ratio 7 6 - 25 01/12/2013 Normal [facility] CHEMISTRY AGAP 18.4 10.0 - 20.0 01/12/2013 Normal [facility] CHEMISTRY Globulin 5.4 2.0 - 4.0 01/12/2013 [facility] CHEMISTRY A/G Ratio 0.7 0.7 - 1.6 01/12/2013 Normal [facility] CHEMISTRY eGFR 7 01/12/2013 NA <sup>1</sup>Result Comment: The eGFR is calculated using the CKD-EPI formula. In most young, healthy individuals the eGFR will be >90 mL/min/1.73m2. The eGFR declines with age. An eGFR of 60-89 may be normal in some populations, particularly the elderly, for whom the CKD-EPI formula has not been extensively validated. Use of the eGFR is not recommended in the following populations:& lt;br/>
Individuals with unstable creatinine concentrations, including patients and those with serious co-morbid conditions.

Patients with extremes in muscle mass or diet.

The data above are obtained from the National Kidney Disease Education Program (NKDEP) which additionally recommends that when the eGFR is used in patients with extremes of body mass index for purposes of drug dosing, the eGFR should be multiplied by the estimated BMI. [facility] CHEMISTRY BUN 47 7 - 22 01/12/2013 [facility] CHEMISTRY Calcium Lvl 8.7 8.5 - 10.5 01/12/2013 Normal [facility] CHEMISTRY CO2 25 24 - 32 01/12/2013 Normal [facility] CHEMISTRY Potassium Lvl 4.4 3.5 - 5.1 01/12/2013 Normal [facility] CHEMISTRY Chloride Lvl 93 95 - 109 01/12/2013 LOW [facility] CHEMISTRY Sodium Lvl 132 135 - 145 01/12/2013 LOW [facility] CHEMISTRY Creatinine Lvl 6.4 0.5 - 1.4 01/12/2013 [facility] CHEMISTRY Albumin Lvl 3.6 3.5 - 5.0 01/12/2013 Normal [facility] CHEMISTRY Glucose Lvl 117 70 - 99 01/12/2013 [place] <sup>2</sup>Interpretive Data: Adult ref erence range values reflect the clinical guidelines
of the [place] [employer]. [facility] CHEMISTRY AST 41 0 - 37 01/12/2013 [facility] CHEMISTRY ALT 69 0 - 65 01/12/2013 [facility] CHEMISTRY Total Protein 9.0 6.4 - 8.4 01/12/2013 [facility] CHEMISTRY Bili Total 0.5 0.2 - 1.3 01/12/2013 Normal [facility] CHEMISTRY Alk Phos 215 39 - 136 01/12/2013 [facility] CHEMISTRY BNP 4 <=100 01/12/2013 Normal <sup>3</sup>Interpretive Data: Elevated results are in line with increasing severity of
congestive heart failure. Minor elevations between 100 and 300
may be seen with Myocardial Ischemia, Sodium retaining drugs,
and compensated/treated heart failure. [facility] CHEMISTRY Magnesium Lvl 2.3 1.8 - 2.4 01/12/2013 Normal [facility] CHEMISTRY Troponin-I <0.02 0.00 - 0.40 01/12/2013 Normal [facility] CHEMISTRY Total CK 40 12 - 191 01/12/2013 Normal [facility] HEMATOLOGY RBC 2.96 4.20 - 5.40 01/12/2013 LOW [facility] HEMATOLOGY MCV 95.2 81.0 - 99.0 01/12/2013 Normal [facility] HEMATOLOGY Hct 28.2 36.0 - 48.0 01/12/2013 LOW [facility] HEMATOLOGY Hgb 9.2 12.0 - 16.0 01/12/2013 LOW [facility] HEMATOLOGY RDW 16.0 11.5 - 14.5 01/12/2013 [facility] MCHC 32.8 32.0 - 36.0 01/12/2013 Normal [facility] MPV 7.3 7.4 - 10.4 01/12/2013 LOW [facility] HEMATOLOGY Platelet 295 133 - 450 01/12/2013 Normal [facility] HEMATOLOGY WBC 10.7 3.7 - 10.4 01/12/2013 [facility] MCH 31.2 27.0 - 31.0 01/12/2013 [facility] INR 1.06 0.85 - 1.17 01/12/2013 Normal <sup>4</sup>Interpretive Data: RECOMMEND ED RANGES FOR PROTIME INR:
2.0-3.0 for most medical and surgical thromboembolic states.
2.5-3.5 for artificial heart valves and recurrent embolism.

INR SHOULD BE USED ONLY FOR PATIENTS ON STABLE ANTICOAGULANT THERAPY. [facility] HEMATOLOGY PTT 56.1 22.9 - 35.8 01/12/2013 HI <sup>5</sup>Interpretive Data: Heparin T herapeutic Range: 57 - 92 Seconds [facility] HEMATOLOGY PT 14.0 12.0 - 14.7 01/12/2013 Normal [facility] Monocytes # 1.0 0.0 - 0.8 01/12/2013 [facility] HEMATOLOGY Segs 78.5 45.0 - 75.0 01/12/2013 HI [facility] Segs-Bands # 8.4 1.5 - 8.1 01/12/2013 HI [facility] HEMATOLOGY Lymphocytes # 1.2 1.0 - 5.5 01/12/2013 Normal [facility] HEMATOLOGY Basophils 0.2 0.0 - 1.0 01/12/2013 Normal [facility] HEMATOLOGY Eosinophils # 0.1 0.0 - 0.5 01/12/2013 Normal [facility] HEMATOLOGY Eosinophils 0.8 0.0 - 4.0 01/12/2013 Normal [facility] HEMATOLOGY Monocytes 9.2 2.0 - 12.0 01/12/2013 Normal [facility] HEMATOLOGY Lymphocytes 11.3 20.0 - 40.0 01/12/2013 LOW [facility] HEMATOLOGY Basophils # 0.0 0.0 - 0.2 01/12/2013 Normal [facility] CHEMISTRY Total Protein 8.9 6.4 - 8.4 01/06/2013 [facility] CHEMISTRY ALT 55 0 - 65 01/06/2013 Normal [facility] CHEMISTRY Alk Phos 158 39 - 136 01/06/2013 [facility] CHEMISTRY AST 33 0 - 37 01/06/2013 Normal [facility] CHEMISTRY Bili Total 0.3 0.2 - 1.3 01/06/2013 Normal [facility] CHEMISTRY eGFR 14 01/06/2013 NA <sup>1</sup>Result Comment: The eGFR is calculated using the CKD-EPI formula. In most young, healthy individuals the eGFR will be >90 mL/min/1.73m2. The eGFR declines with age. An eGFR of 60-89 may be normal in some populations, particularly the elderly, for whom the CKD-EPI formula has not been extensively validated. Use of the eGFR is not recommended in the following populations:& lt;br/>
Individuals with unstable creatinine concentrations, including patients and those with serious co-morbid conditions.

Patients with extremes in muscle mass or diet.

The data above are obtained from the National Kidney Disease Education Program (NKDEP) which additionally recommends that when the eGFR is used in patients with extremes of body mass index for purposes of drug dosing, the eGFR should be multiplied by the estimated BMI. [facility] CHEMISTRY CO2 31 24 - 32 01/06/2013 Normal [facility] CHEMISTRY BUN 31 7 - 22 01/06/2013 [facility] CHEMISTRY Creatinine Lvl 3.5 0.5 - 1.4 01/06/2013 HI [facility] CHEMISTRY Sodium Lvl 134 135 - 145 01/06/2013 LOW [facility] CHEMISTRY Potassium Lvl 4.7 3.5 - 5.1 01/06/2013 Normal [facility] CHEMISTRY Chloride Lvl 92 95 - 109 01/06/2013 LOW [facility] CHEMISTRY Albumin Lvl 4.0 3.5 - 5.0 01/06/2013 Normal [facility] CHEMISTRY Calcium Lvl 9.5 8.5 - 10.5 01/06/2013 Normal [facility] CHEMISTRY Glucose Lvl 134 70 - 99 01/06/2013 HI <sup>2</sup>Interpretive Data: Adult ref erence range values reflect the clinical guidelines
of the [place] [employer]. [facility] CHEMISTRY A/G Ratio 0.8 0.7 - 1.6 01/06/2013 Normal [facility] CHEMISTRY Globulin 4.9 2.0 - 4.0 01/06/2013 [facility] CHEMISTRY AGAP 15.7 10.0 - 20.0 01/06/2013 Normal [facility] CHEMISTRY B/C Ratio 9 6 - 25 01/06/2013 Normal [facility] HEMATOLOGY Basophils # 0.0 0.0 - 0.2 01/06/2013 Normal [facility] HEMATOLOGY RBC Morph Nicolasa l (01/06/2013 14:40:00) 01/06/2013 Normal [facility] HEMATOLOGY Lymphocytes 9.8 20.0 - 40.0 01/06/2013 LOW [facility] HEMATOLOGY Segs 83.6 45.0 - 75.0 01/06/2013 [facility] HEMATOLOGY Monocytes 5.4 2.0 - 12.0 01/06/2013 Normal [facility] HEMATOLOGY Eosinophils 0.9 0.0 - 4.0 01/06/2013 Normal [facility] HEMATOLOGY Plt Morph Nicolasa l (01/06/2013 14:40:00) 01/06/2013 Normal [facility] HEMATOLOGY Lymphocytes # 1.4 1.0 - 5.5 01/06/2013 Normal [facility] HEMATOLOGY Monocytes # 0.8 0.0 - 0.8 01/06/2013 Normal [facility] HEMATOLOGY Eosinophils # 0.1 0.0 - 0.5 01/06/2013 Normal [facility] HEMATOLOGY Segs-Bands # 11.9 1.5 - 8.1 01/06/2013 [facility] HEMATOLOGY Basophils 0.3 0.0 - 1.0 01/06/2013 Normal [facility] HEMATOLOGY Hct 30.6 36.0 - 48.0 01/06/2013 LOW [facility] HEMATOLOGY WBC 14.2 3.7 - 10.4 01/06/2013 [facility] HEMATOLOGY Hgb 10.1 12.0 - 16.0 01/06/2013 LOW [facility] HEMATOLOGY RBC 3.19 4.20 - 5.40 01/06/2013 LOW [facility] HEMATOLOGY MCH 31.8 27.0 - 31.0 01/06/2013 [facility] HEMATOLOGY MCV 96.0 81.0 - 99.0 01/06/2013 Normal [facility] HEMATOLOGY MCHC 33.1 32.0 - 36.0 01/06/2013 Normal [facility] HEMATOLOGY RDW 15.7 11.5 - 14.5 01/06/2013 [facility] HEMATOLOGY Platelet 315 133 - 450 01/06/2013 Normal [facility] HEMATOLOGY MPV 6.6 7.4 - 10.4 01/06/2013 LOW [facility] BEDSIDE GLUCOSE TESTING Comment2 Repeat test 12/28/2012 [facility] BEDSIDE GLUCOSE TESTING Comment1 Assess patient 12/28/2012 [facility] BEDSIDE GLUCOSE TESTING Comment3 Notify GI/ 12/28/2012 [facility] BEDSIDE GLUCOSE TESTING Gluc POC Lif scn 110 70 - 99 12/28/2012 HI <sup>2</sup>Interpretive Data: Upper Reportable Limit: 200 mg/dL. [facility] BEDSIDE GLUCOSE TESTING Comment1 Assess patient 12/28/2012 [facility] BEDSIDE GLUCOSE TESTING Comment2 Notify GI/ 12/28/2012 [facility] BEDSIDE GLUCOSE TESTING Gluc POC Lif scn 202 70 - 99 12/28/2012 HI <sup>3</sup>Interpretive Data: Upper Reportable Limit: 200 mg/dL. [facility] BEDSIDE GLUCOSE TESTING Gluc POC Lif scn 141 70 - 99 12/28/2012 HI <sup>4</sup>Interpretive Data: Upper Reportable Limit: 200 mg/dL. [facility] BEDSIDE GLUCOSE TESTING Comment1 Notify GI/ 12/28/2012 [facility] CHEMISTRY Phosphorus 4.9 2.5 - 4.5 12/28/2012 [facility] CHEMISTRY eGFR 8 12/28/2012 NA <sup>6</sup>Result Comment: The eGFR is calculated using the CKD-EPI formula. In most young, healthy individuals the eGFR will be >90 mL/min/1.73m2. The eGFR declines with age. An eGFR of 60-89 may be normal in some populations, particularly the elderly, for whom the CKD-EPI formula has not been extensively validated. Use of the eGFR is not recommended in the following populations:& lt;br/>
Individuals with unstable creatinine concentrations, including patients and those with serious co-morbid conditions.

Patients with extremes in muscle mass or diet.

The data above are obtained from the National Kidney Disease Education Program (NKDEP) which additionally recommends that when the eGFR is used in patients with extremes of body mass index for purposes of drug dosing, the eGFR should be multiplied by the estimated BMI. [facility] CHEMISTRY Potassium Lvl 4.7 3.5 - 5.1 12/28/2012 Normal [facility] CHEMISTRY Chloride Lvl 94 95 - 109 12/28/2012 LOW [facility] CHEMISTRY Calcium Lvl 8.5 8.5 - 10.5 12/28/2012 Normal [facility] CHEMISTRY CO2 30 24 - 32 12/28/2012 Normal [facility] CHEMISTRY Glucose Lvl 136 70 - 99 12/28/2012 HI <sup>9</sup>Interpretive Data: Adult ref erence range values reflect the clinical guidelines
of the [place] [employer]. [facility] CHEMISTRY Sodium Lvl 137 135 - 145 12/28/2012 Normal [facility] CHEMISTRY Creatinine Lvl 5.5 0.5 - 1.4 12/28/2012 [facility] CHEMISTRY BUN 46 7 - 22 12/28/2012 [facility] CHEMISTRY AGAP 17.7 10.0 - 20.0 12/28/2012 Normal [facility] CHEMISTRY Magnesium Lvl 2.1 1.8 - 2.4 12/28/2012 Normal [facility] HEMATOLOGY Eosinophils 2.4 0.0 - 4.0 12/28/2012 Normal [facility] HEMATOLOGY Basophils 0.3 0.0 - 1.0 12/28/2012 Normal [facility] HEMATOLOGY Segs-Bands # 4.9 1.5 - 8.1 12/28/2012 Normal [facility] HEMATOLOGY Lymphocytes # 1.1 1.0 - 5.5 12/28/2012 Normal [facility] HEMATOLOGY Monocytes # 0.5 0.0 - 0.8 12/28/2012 Normal [facility] HEMATOLOGY Segs 73.1 45.0 - 75.0 12/28/2012 Normal [facility] HEMATOLOGY Lymphocytes 16.0 20.0 - 40.0 12/28/2012 LOW [facility] HEMATOLOGY Monocytes 8.2 2.0 - 12.0 12/28/2012 Normal [facility] HEMATOLOGY Eosinophils # 0.2 0.0 - 0.5 12/28/2012 Normal [facility] HEMATOLOGY Basophils # 0.0 0.0 - 0.2 12/28/2012 Normal [facility] HEMATOLOGY Platelet 178 133 - 450 12/28/2012 Normal [facility] HEMATOLOGY MPV 7.2 7.4 - 10.4 12/28/2012 LOW [facility] HEMATOLOGY RDW 16.1 11.5 - 14.5 12/28/2012 [facility] HEMATOLOGY Hct 29.1 36.0 - 48.0 12/28/2012 LOW [facility] HEMATOLOGY MCV 95.3 81.0 - 99.0 12/28/2012 Normal [facility] HEMATOLOGY MCH 31.6 27.0 - 31.0 12/28/2012 [facility] HEMATOLOGY MCHC 33.1 32.0 - 36.0 12/28/2012 Normal [facility] HEMATOLOGY RBC 3.05 4.20 - 5.40 12/28/2012 [facility] HEMATOLOGY Hgb 9.6 12.0 - 16.0 12/28/2012 LOW [facility] HEMATOLOGY WBC 6.7 3.7 - 10.4 12/28/2012 Normal [facility] BLOOD BANK RESULTS ABO/Rh O POS 12/27/2012 Unknown [facility] BLOOD BANK RESULTS Antibody Scrn Negative (12/27/2012 11:16:00) 12/27/2012 Normal [facility] CHEMISTRY Transferrin 239 212 - 360 12/27/2012 Normal [facility] CHEMISTRY TIBC 292 228 - 428 12/27/2012 Normal [facility] CHEMISTRY Iron 48 30 - 160 12/27/2012 Normal [facility] CHEMISTRY UIBC 244 110 - 370 12/27/2012 Normal [facility] CHEMISTRY % Satur Fe 16 12 - 57 12/27/2012 Normal [facility] CHEMISTRY Ferritin Lvl 914 5 - 204 12/27/2012 [facility] BLOOD BANK RESULTS RBC product Product available 5 (12/27/2012 11:00:23) 12/27/2012 Normal <sup>5</sup>Result Comment: 12/27/2012 14:28 ELZBIETA
Called to [facility] at 12/27/2012 14:28. [facility] CHEMISTRY eGFR 6 12/27/2012 NA <sup>7</sup>Result Comment: The eGFR is calculated using the CKD-EPI formula. In most young, healthy individuals the eGFR will be >90 mL/min/1.73m2. The eGFR declines with age. An eGFR of 60-89 may be normal in some populations, particularly the elderly, for whom the CKD-EPI formula has not been extensively validated. Use of the eGFR is not recommended in the following populations:& lt;br/>
Individuals with unstable creatinine concentrations, including patients and those with serious co-morbid conditions.

Patients with extremes in muscle mass or diet.

The data above are obtained from the National Kidney Disease Education Program (NKDEP) which additionally recommends that when the eGFR is used in patients with extremes of body mass index for purposes of drug dosing, the eGFR should be multiplied by the estimated BMI. [facility] CHEMISTRY Calcium Lvl 6.6 8.5 - 10.5 12/27/2012 CRIT <sup>12</sup>Result Comment: Critical Re ronit(s) called to praful at 12/27/2012 04:53:37 CST_ by_pb. Read back OK. [facility] CHEMISTRY AGAP 18.6 10.0 - 20.0 12/27/2012 Normal [facility] CHEMISTRY Creatinine Lvl 7.6 0.5 - 1.4 12/27/2012 HI [facility] CHEMISTRY BUN 87 7 - 22 12/27/2012 [facility] CHEMISTRY Glucose Lvl 119 70 - 99 12/27/2012 HI <sup>10</sup>Interpretive Data: Adult re ference range values reflect the clinical guidelines
of the [place] [employer]. [facility] CHEMISTRY CO2 31 24 - 32 12/27/2012 Normal [facility] CHEMISTRY Chloride Lvl 91 95 - 109 12/27/2012 LOW [facility] CHEMISTRY Potassium Lvl 4.6 3.5 - 5.1 12/27/2012 Normal [facility] CHEMISTRY Sodium Lvl 136 135 - 145 12/27/2012 Normal [facility] HEMATOLOGY Eosinophils # 0.2 0.0 - 0.5 12/27/2012 Normal [facility] HEMATOLOGY Basophils # 0.0 0.0 - 0.2 12/27/2012 Normal [facility] HEMATOLOGY Monocytes # 0.6 0.0 - 0.8 12/27/2012 Normal [facility] HEMATOLOGY Lymphocytes # 1.2 1.0 - 5.5 12/27/2012 Normal [facility] HEMATOLOGY Segs-Bands # 4.0 1.5 - 8.1 12/27/2012 Normal [facility] HEMATOLOGY Basophils 0.2 0.0 - 1.0 12/27/2012 Normal [facility] HEMATOLOGY Eosinophils 2.7 0.0 - 4.0 12/27/2012 Normal [facility] HEMATOLOGY Monocytes 9.5 2.0 - 12.0 12/27/2012 Normal [facility] HEMATOLOGY Lymphocytes 20.0 20.0 - 40.0 12/27/2012 Normal [facility] HEMATOLOGY Segs 67.6 45.0 - 75.0 12/27/2012 Normal [facility] MCV 96.0 81.0 - 99.0 12/27/2012 Normal [facility] MCHC 33.0 32.0 - 36.0 12/27/2012 Normal [facility] Hgb 7.7 12.0 - 16.0 12/27/2012 LOW [facility] RBC 2.44 4.20 - 5.40 12/27/2012 LOW [facility] WBC 5.9 3.7 - 10.4 12/27/2012 Normal [facility] MPV 7.2 7.4 - 10.4 12/27/2012 LOW [facility] HEMATOLOGY Hct 23.4 36.0 - 48.0 12/27/2012 LOW [facility] MCH 31.6 27.0 - 31.0 12/27/2012 [facility] HEMATOLOGY Platelet 144 133 - 450 12/27/[address] [facility] RDW 16.1 11.5 - 14.5 12/27/2012 [facility] Microbiology Culture: Blood 12/27/2012 [facility] BACTERIAL - SEROLOGY MRSA by PCR Negative 1 (12/26/2012 21:59:00) 12/27/2012 Normal <sup>1</sup>Interpretive Data: Interpretive Data: The [employer] LightCycler MRSA assay is a qualitative test for the direct detection of nasal colonization with methicillin-resistant Staphylococcus aureus (MRSA) to aid in the prevention and control of MRSA infections in healthcare settings. A positive result does not indicate an infection or require treatment. A negative result does not exclude colonization or infection.

The polymerase chain reaction (PCR) assay detects a proprietary sequence indicative of the integration of the SCCmec cassette into the Staphylococcus aureus chromosome, indicating the presence of MRSA DNA. The assay utilizes FDA cleared IVD reagents. Performance characteristics have been verified by the [facility] within the [facility]. The [facility] is authorized under the Clinical Laboratory Improvement Amendment of 1988 (CLIA-88) to perform high complexity testing. [facility] BEDSIDE GLUCOSE TESTING Comment2 Notify RN/MD 12/27/2012 NA [facility] CHEMISTRY CK MB 2.3 0.5 - 3.6 12/27/2012 Normal [facility] CHEMISTRY Troponin-I <0.02 0.00 - 0.40 12/27/2012 Normal [facility] CHEMISTRY Total CK 87 12 - 191 12/27/2012 Normal [facility] CHEMISTRY Potassium Lvl 5.9 3.5 - 5.1 12/26/2012 HI [facility] CHEMISTRY Sodium Lvl 136 135 - 145 12/26/2012 Normal [facility] CHEMISTRY Chloride Lvl 93 95 - 109 12/26/2012 LOW [facility] CHEMISTRY AGAP 21.9 10.0 - 20.0 12/26/2012 [facility] CHEMISTRY Calcium Lvl 7.8 8.5 - 10.5 12/26/2012 LOW [facility] CHEMISTRY Creatinine Lvl 6.4 0.5 - 1.4 12/26/2012 [facility] CHEMISTRY CO2 27 24 - 32 12/26/2012 Normal [facility] CHEMISTRY BUN 67 7 - 22 12/26/2012 [facility] CHEMISTRY Glucose Lvl 123 70 - 99 12/26/2012 HI <sup>11</sup>Interpretive Data: Adult re ference range values reflect the clinical guidelines
of the [place] [employer]. [facility] CHEMISTRY eGFR 7 12/26/2012 NA <sup>8</sup>Result Comment: The eGFR is calculated using the CKD-EPI formula. In most young, healthy individuals the eGFR will be >90 mL/min/1.73m2. The eGFR declines with age. An eGFR of 60-89 may be normal in some populations, particularly the elderly, for whom the CKD-EPI formula has not been extensively validated. Use of the eGFR is not recommended in the following populations:& lt;br/>
Individuals with unstable creatinine concentrations, including patients and those with serious co-morbid conditions.

Patients with extremes in muscle mass or diet.

The data above are obtained from the National Kidney Disease Education Program (NKDEP) which additionally recommends that when the eGFR is used in patients with extremes of body mass index for purposes of drug dosing, the eGFR should be multiplied by the estimated BMI. [facility] CHEMISTRY CK MB 2.2 0.5 - 3.6 12/26/2012 Normal [facility] CHEMISTRY Total CK 67 12 - 191 12/26/2012 Normal [facility] CHEMISTRY Troponin-I <0.02 0.00 - 0.40 12/26/2012 Normal [facility] CHEMISTRY Phosphorus 6.2 2.5 - 4.5 12/26/2012 HI [facility] CHEMISTRY Magnesium Lvl 1.8 1.8 - 2.4 12/26/2012 Normal [facility] CHEMISTRY Phosphorus 0.5 2.5 - 4.5 12/26/2012 CRIT <sup>13</sup>Result Comment: Critical Re sult(s) called to Vann[facility] at 12/26/2012 06:20:18 [employer]ER by sdd. Read back OK. [facility] CHEMISTRY CK MB 3.1 0.5 - 3.6 12/26/2012 Normal [facility] CHEMISTRY Total CK 90 12 - 191 12/26/2012 Normal [facility] CHEMISTRY Troponin-I <0.02 0.00 - 0.40 12/26/2012 Normal [facility] HEMATOLOGY INR 1.05 0.85 - 1.17 12/26/2012 Normal <sup>14</sup>Interpretive Data: RECOMMEN DED RANGES FOR PROTIME INR:
2.0-3.0 for most medical and surgical thromboembolic states.
2.5-3.5 for artificial heart valves and recurrent embolism.

INR SHOULD BE USED ONLY FOR PATIENTS ON STABLE ANTICOAGULANT THERAPY. [facility] HEMATOLOGY PT 13.9 12.0 - 14.7 12/26/2012 Normal [facility] HEMATOLOGY PTT 42.5 22.9 - 35.8 12/26/2012 HI <sup>15</sup>Interpretive Data: Heparin Therapeutic Range: 57 - 92 Seconds [facility] IMMUNOLOGY Hep Bs Ag Negat sue *NA* (12/26/2012 03:00:00) Negati ve 12/26/2012 NA [facility] CHEMISTRY CK MB Index 3.3 0.0 - 2.5 12/26/2012 [facility] CHEMISTRY B/C Ratio 13 6 - 25 12/26/2012 Normal [facility] CHEMISTRY Total Protein 7.8 6.4 - 8.4 12/26/2012 Normal [facility] CHEMISTRY Alk Phos 145 39 - 136 12/26/2012 [facility] CHEMISTRY Bili Total 0.3 0.2 - 1.3 12/26/2012 Normal [facility] CHEMISTRY AST 20 0 - 37 12/26/2012 Normal [facility] CHEMISTRY ALT 44 0 - 65 12/26/2012 Normal [facility] CHEMISTRY Globulin 4.2 2.0 - 4.0 12/26/2012 [facility] CHEMISTRY A/G Ratio 0.9 0.7 - 1.6 12/26/2012 Normal [facility] CHEMISTRY Albumin Lvl 3.6 3.5 - 5.0 12/26/2012 Normal [facility] CHEMISTRY Magnesium Lvl 2.5 1.8 - 2.4 12/26/2012 [facility] HEMATOLOGY Basophils # 0.0 0.0 - 0.2 12/26/2012 Normal [facility] HEMATOLOGY Lymphocytes # 1.0 1.0 - 5.5 12/26/2012 Normal [facility] HEMATOLOGY Eosinophils # 0.1 0.0 - 0.5 12/26/2012 Normal [facility] HEMATOLOGY Monocytes # 0.5 0.0 - 0.8 12/26/2012 Normal [facility] HEMATOLOGY Eosinophils 2.0 0.0 - 4.0 12/26/2012 Normal [facility] HEMATOLOGY Basophils 0.2 0.0 - 1.0 12/26/2012 Normal [facility] HEMATOLOGY Monocytes 6.1 2.0 - 12.0 12/26/2012 Normal [facility] HEMATOLOGY Lymphocytes 13.6 20.0 - 40.0 12/26/2012 LOW [facility] HEMATOLOGY Segs-Bands # 5.8 1.5 - 8.1 12/26/2012 Normal [facility] HEMATOLOGY Segs 78.1 45.0 - 75.0 12/26/2012 [facility] HEMATOLOGY MCH 31.9 27.0 - 31.0 12/26/2012 [facility] HEMATOLOGY MCHC 33.0 32.0 - 36.0 12/26/2012 Normal [facility] HEMATOLOGY RDW 16.3 11.5 - 14.5 12/26/2012 [facility] HEMATOLOGY Platelet 177 133 - 450 12/26/2012 Normal [facility] HEMATOLOGY WBC 7.4 3.7 - 10.4 12/26/2012 Normal [facility] HEMATOLOGY MPV 7.5 7.4 - 10.4 12/26/2012 Normal [facility] HEMATOLOGY Hct 26.3 36.0 - 48.0 12/26/2012 LOW [facility] HEMATOLOGY RBC 2.72 4.20 - 5.40 12/26/2012 LOW [facility] HEMATOLOGY Hgb 8.7 12.0 - 16.0 12/26/2012 LOW [facility] HEMATOLOGY MCV 96.7 81.0 - 99.0 12/26/2012 Normal [facility] CHEMISTRY Troponin-I <0.02 0.00 - 0.40 12/05/2012 Normal [facility] CHEMISTRY Total CK 76 12 - 191 12/05/2012 Normal [facility] CHEMISTRY A/G Ratio 0.7 0.7 - 1.6 12/05/2012 Normal [facility] CHEMISTRY AGAP 19.9 10.0 - 20.0 12/05/2012 Normal [facility] CHEMISTRY B/C Ratio 9 6 - 25 12/05/2012 Normal [facility] CHEMISTRY Globulin 4.2 2.0 - 4.0 12/05/2012 HI [facility] CHEMISTRY eGFR 5 12/05/2012 NA <sup>1</sup>Result Comment: The eGFR is calculated using the CKD-EPI formula. In most young, healthy individuals the eGFR will be >90 mL/min/1.73m2. The eGFR declines with age. An eGFR of 60-89 may be normal in some populations, particularly the elderly, for whom the CKD-EPI formula has not been extensively validated. Use of the eGFR is not recommended in the following populations:& lt;br/>
Individuals with unstable creatinine concentrations, including patients and those with serious co-morbid conditions.

Patients with extremes in muscle mass or diet.

The data above are obtained from the National Kidney Disease Education Program (NKDEP) which additionally recommends that when the eGFR is used in patients with extremes of body mass index for purposes of drug dosing, the eGFR should be multiplied by the estimated BMI. [facility] CHEMISTRY CO2 22 24 - 32 12/05/2012 LOW [facility] CHEMISTRY Creatinine Lvl 8.9 0.5 - 1.4 12/05/2012 [facility] CHEMISTRY Calcium Lvl 8.2 8.5 - 10.5 12/05/2012 LOW [facility] CHEMISTRY Total Protein 7.3 6.4 - 8.4 12/05/2012 Normal [facility] CHEMISTRY Alk Phos 148 39 - 136 12/05/2012 [facility] CHEMISTRY Bili Total 0.3 0.2 - 1.3 12/05/2012 Normal [facility] CHEMISTRY ALT 17 0 - 65 12/05/2012 Normal [facility] CHEMISTRY Albumin Lvl 3.1 3.5 - 5.0 12/05/2012 LOW [facility] CHEMISTRY AST 25 0 - 37 12/05/2012 Normal [facility] CHEMISTRY Glucose Lvl 138 70 - 99 12/05/2012 HI <sup>2</sup>Interpretive Data: Adult ref erence range values reflect the clinical guidelines
of the [place] [employer]. [facility] CHEMISTRY BUN 82 7 - 22 12/05/2012 [facility] CHEMISTRY Chloride Lvl 102 95 - 109 12/05/2012 Normal [facility] CHEMISTRY Sodium Lvl 138 135 - 145 12/05/2012 Normal [facility] CHEMISTRY Potassium Lvl 5.9 3.5 - 5.1 12/05/2012 [facility] HEMATOLOGY Basophils 0.0 0.0 - 1.0 12/05/2012 Normal [facility] HEMATOLOGY Segs-Bands # 4.7 1.5 - 8.1 12/05/2012 Normal [facility] HEMATOLOGY Lymphocytes # 0.6 1.0 - 5.5 12/05/2012 LOW [facility] HEMATOLOGY Eosinophils 0.6 0.0 - 4.0 12/05/2012 Normal [facility] HEMATOLOGY Lymphocytes 10.0 20.0 - 40.0 12/05/2012 LOW [facility] HEMATOLOGY Monocytes 8.8 2.0 - 12.0 12/05/2012 Normal [facility] HEMATOLOGY Segs 80.6 45.0 - 75.0 12/05/2012 [facility] HEMATOLOGY Basophils # 0.0 0.0 - 0.2 12/05/2012 Normal [facility] HEMATOLOGY Eosinophils # 0.0 0.0 - 0.5 12/05/2012 Normal [facility] HEMATOLOGY Monocytes # 0.5 0.0 - 0.8 12/05/2012 Normal [facility] [facility] HEMATOLOGY INR 1.00 0.85 - 1.17 12/05/2012 Normal <sup>3</sup>Interpretive Data: RECOMMEND ED RANGES FOR PROTIME INR:
2.0-3.0 for most medical and surgical thromboembolic states.
2.5-3.5 for artificial heart valves and recurrent embolism.

INR SHOULD BE USED ONLY FOR PATIENTS ON STABLE ANTICOAGULANT THERAPY. [facility] HEMATOLOGY PTT 31.5 22.9 - 35.8 12/05/2012 Normal <sup>4</sup>Interpretive Data: Heparin T herapeutic Range: 57 - 92 Seconds [facility] HEMATOLOGY PT 13.4 12.0 - 14.7 12/05/2012 Normal [facility] HEMATOLOGY Hct 22.1 36.0 - 48.0 12/05/2012 LOW [facility] HEMATOLOGY MCH 31.7 27.0 - 31.0 12/05/2012 HI [facility] HEMATOLOGY MCV 94.0 81.0 - 99.0 12/05/2012 Normal [facility] HEMATOLOGY Platelet 220 133 - 450 12/05/2012 Normal [facility] HEMATOLOGY RDW 16.5 11.5 - 14.5 12/05/2012 HI [facility] HEMATOLOGY MPV 7.2 7.4 - 10.4 12/05/2012 LOW [facility] HEMATOLOGY WBC 5.8 3.7 - 10.4 12/05/[address] [facility] RBC 2.35 4.20 - 5.40 12/05/2012 LOW [facility] HEMATOLOGY Hgb 7.4 12.0 - 16.0 12/05/2012 LOW [facility] HEMATOLOGY MCHC 33.7 32.0 - 36.0 12/05/2012 Normal [facility] BEDSIDE GLUCOSE TESTING Gluc POC Lif scn 192 70 - 99 12/03/2012 HI <sup>1</sup>Interpretive Data: Upper Reportable Limit: 200 mg/dL. [facility] BEDSIDE GLUCOSE TESTING Comment1 Notify GI/ 12/03/2012 NA [facility] BEDSIDE GLUCOSE TESTING Gluc POC Lif scn 298 70 - 99 12/03/2012 HI <sup>2</sup>Interpretive Data: Upper Reportable Limit: 200 mg/dL. [facility] BEDSIDE GLUCOSE TESTING Comment1 Notify GI/ 12/03/2012 NA [facility] BEDSIDE GLUCOSE TESTING Gluc POC Lif scn 194 70 - 99 12/03/2012 HI <sup>3</sup>Interpretive Data: Upper Reportable Limit: 200 mg/dL. [facility] BEDSIDE GLUCOSE TESTING Comment1 Notify RN/ 12/02/2012 NA [facility] CHEMISTRY AGAP 18.6 10.0 - 20.0 12/01/2012 Normal [facility] CHEMISTRY eGFR 9 12/01/2012 NA <sup>4</sup>Result Comment: The eGFR is calculated using the CKD-EPI formula. In most young, healthy individuals the eGFR will be >90 mL/min/1.73m2. The eGFR declines with age. An eGFR of 60-89 may be normal in some populations, particularly the elderly, for whom the CKD-EPI formula has not been extensively validated. Use of the eGFR is not recommended in the following populations:& lt;br/>
Individuals with unstable creatinine concentrations, including patients and those with serious co-morbid conditions.

Patients with extremes in muscle mass or diet.

The data above are obtained from the National Kidney Disease Education Program (NKDEP) which additionally recommends that when the eGFR is used in patients with extremes of body mass index for purposes of drug dosing, the eGFR should be multiplied by the estimated BMI. [facility] CHEMISTRY Potassium Lvl 4.6 3.5 - 5.1 12/01/2012 Normal [facility] CHEMISTRY Chloride Lvl 93 95 - 109 12/01/2012 LOW [facility] CHEMISTRY Sodium Lvl 135 135 - 145 12/01/2012 Normal [facility] CHEMISTRY CO2 28 24 - 32 12/01/2012 Normal [facility] CHEMISTRY Calcium Lvl 8.9 8.5 - 10.5 12/01/2012 Normal [facility] CHEMISTRY Creatinine Lvl 5.3 0.5 - 1.4 12/01/2012 HI [facility] CHEMISTRY Glucose Lvl 139 70 - 99 12/01/2012 HI <sup>7</sup>Interpretive Data: Adult ref erence range values reflect the clinical guidelines
of the [place] [employer]. [facility] CHEMISTRY BUN 27 7 - 22 12/01/2012 [facility] CHEMISTRY S Preg Negati ve *NA* (12/01/2012 05:28:00) Negati ve 12/01/2012 NA [facility] HEMATOLOGY Eosinophils # 0.4 0.0 - 0.5 12/01/2012 Normal [facility] HEMATOLOGY Basophils # 0.0 0.0 - 0.2 12/01/2012 Normal [facility] HEMATOLOGY Monocytes # 0.6 0.0 - 0.8 12/01/2012 Normal [facility] HEMATOLOGY Segs-Bands # 6.2 1.5 - 8.1 12/01/2012 Normal [facility] HEMATOLOGY Lymphocytes # 1.4 1.0 - 5.5 12/01/2012 Normal [facility] HEMATOLOGY Basophils 0.2 0.0 - 1.0 12/01/2012 Normal [facility] HEMATOLOGY Monocytes 6.7 2.0 - 12.0 12/01/2012 Normal [facility] HEMATOLOGY Eosinophils 4.8 0.0 - 4.0 12/01/2012 HI [facility] HEMATOLOGY Segs 72.2 45.0 - 75.0 12/01/2012 Normal [facility] HEMATOLOGY Lymphocytes 16.1 20.0 - 40.0 12/01/2012 LOW [facility] HEMATOLOGY RDW 16.3 11.5 - 14.5 12/01/2012 [facility] HEMATOLOGY MCH 31.2 27.0 - 31.0 12/01/2012 [facility] HEMATOLOGY MCHC 33.2 32.0 - 36.0 12/01/2012 Normal [facility] HEMATOLOGY MCV 93.9 81.0 - 99.0 12/01/2012 Normal [facility] HEMATOLOGY Hgb 9.4 12.0 - 16.0 12/01/2012 LOW [facility] HEMATOLOGY Hct 28.5 36.0 - 48.0 12/01/2012 LOW [facility] HEMATOLOGY RBC 3.03 4.20 - 5.40 12/01/2012 LOW [facility] HEMATOLOGY Platelet 264 133 - 450 12/01/2012 Normal [facility] HEMATOLOGY MPV 7.3 7.4 - 10.4 12/01/2012 LOW [facility] HEMATOLOGY WBC 8.6 3.7 - 10.4 12/01/2012 Normal [facility] CHEMISTRY Glucose Lvl 125 70 - 99 11/30/2012 [place] <sup>8</sup>Interpretive Data: Adult ref erence range values reflect the clinical guidelines
of the [place] [employer]. [facility] CHEMISTRY BUN 53 7 - 22 11/30/2012 [facility] CHEMISTRY CO2 31 24 - 32 11/30/2012 Normal [facility] CHEMISTRY AGAP 14.4 10.0 - 20.0 11/30/2012 Normal [facility] CHEMISTRY B/C Ratio 7 6 - 25 11/30/2012 Normal [facility] CHEMISTRY Bili Total 0.4 0.2 - 1.3 11/30/2012 Normal [facility] CHEMISTRY AST 18 0 - 37 11/30/2012 Normal [facility] CHEMISTRY Alk Phos 146 39 - 136 11/30/2012 [facility] CHEMISTRY A/G Ratio 1.0 0.7 - 1.6 11/30/2012 Normal [facility] CHEMISTRY ALT 34 0 - 65 11/30/2012 Normal [facility] CHEMISTRY Globulin 3.5 2.0 - 4.0 11/30/2012 Normal [facility] CHEMISTRY Total Protein 6.9 6.4 - 8.4 11/30/2012 Normal [facility] CHEMISTRY Albumin Lvl 3.4 3.5 - 5.0 11/30/2012 LOW [facility] CHEMISTRY eGFR 6 11/30/2012 NA <sup>5</sup>Result Comment: The eGFR is calculated using the CKD-EPI formula. In most young, healthy individuals the eGFR will be >90 mL/min/1.73m2. The eGFR declines with age. An eGFR of 60-89 may be normal in some populations, particularly the elderly, for whom the CKD-EPI formula has not been extensively validated. Use of the eGFR is not recommended in the following populations:& lt;br/>
Individuals with unstable creatinine concentrations, including patients and those with serious co-morbid conditions.

Patients with extremes in muscle mass or diet.

The data above are obtained from the National Kidney Disease Education Program (NKDEP) which additionally recommends that when the eGFR is used in patients with extremes of body mass index for purposes of drug dosing, the eGFR should be multiplied by the estimated BMI. [facility] CHEMISTRY Sodium Lvl 134 135 - 145 11/30/2012 [facility] CHEMISTRY Chloride Lvl 93 95 - 109 11/30/2012 [facility] CHEMISTRY Potassium Lvl 4.4 3.5 - 5.1 11/30/2012 Normal [facility] CHEMISTRY Calcium Lvl 8.1 8.5 - 10.5 11/30/2012 [facility] CHEMISTRY Creatinine Lvl 7.1 0.5 - 1.4 11/30/2012 [facility] HEMATOLOGY Eosinophils # 0.4 0.0 - 0.5 11/30/2012 Normal [facility] HEMATOLOGY Monocytes # 0.6 0.0 - 0.8 11/30/2012 Normal [facility] HEMATOLOGY Lymphocytes # 1.4 1.0 - 5.5 11/30/2012 [facility] HEMATOLOGY Monocytes 6.7 2.0 - 12.0 11/30/2012 [facility] HEMATOLOGY Segs 73.1 45.0 - 75.0 11/30/2012 Normal [facility] HEMATOLOGY Lymphocytes 15.7 20.0 - 40.0 11/30/2012 [facility] HEMATOLOGY Basophils # 0.0 0.0 - 0.2 11/30/2012 Normal [facility] HEMATOLOGY Eosinophils 4.2 0.0 - 4.0 11/30/2012 [facility] HEMATOLOGY Basophils 0.3 0.0 - 1.0 11/30/2012 Normal [facility] HEMATOLOGY Segs-Bands # 6.7 1.5 - 8.1 11/30/2012 Normal [facility] HEMATOLOGY Platelet 236 133 - 450 11/30/2012 Normal [facility] HEMATOLOGY MPV 7.4 7.4 - 10.4 11/30/2012 Normal [facility] HEMATOLOGY MCHC 32.9 32.0 - 36.0 11/30/2012 Normal [facility] HEMATOLOGY MCV 93.3 81.0 - 99.0 11/30/2012 Normal [facility] HEMATOLOGY RDW 16.2 11.5 - 14.5 11/30/2012 HI [facility] HEMATOLOGY Hct 26.6 36.0 - 48.0 11/30/2012 LOW [facility] HEMATOLOGY MCH 30.7 27.0 - 31.0 11/30/2012 Normal [facility] HEMATOLOGY Hgb 8.8 12.0 - 16.0 11/30/2012 LOW [facility] HEMATOLOGY WBC 9.2 3.7 - 10.4 11/30/2012 Normal [facility] HEMATOLOGY RBC 2.85 4.20 - 5.40 11/30/2012 LOW [facility] IMMUNOLOGY Hep Bs Ag Negat sue *NA* (11/30/2012 05:19:00) Negati ve 11/30/2012 [facility] CHEMISTRY O2 Sat Art 99.6 95.0 - 100.0 11/29/2012 Normal [facility] CHEMISTRY BE Art 3 -2-2 - 2 11/29/2012 [facility] CHEMISTRY Site Art Right Br (11/29/2012 11:33:00) 11/29/2012 Normal [facility] CHEMISTRY HCO3 Art 31 22 - 26 11/29/2012 [facility] CHEMISTRY pO2 Art 190 80 - 100 11/29/2012 [facility] CHEMISTRY PS Art 10 11/29/2012 [facility] CHEMISTRY FiO2 Art 50.0 11/29/2012 [facility] CHEMISTRY Mode Art Cpap (11/29/2012 11:33:00) 11/29/2012 Normal [facility] CHEMISTRY Temp Art 37.0 11/29/2012 [facility] CHEMISTRY pCO2 Art 58 35 - 45 11/29/2012 [facility] CHEMISTRY pH Art 7.33 7.35 - 7.45 11/29/2012 LOW [facility] CHEMISTRY Troponin-I <0.02 0.00 - 0.40 11/29/2012 Normal [facility] CHEMISTRY Total CK 79 12 - 191 11/29/2012 Normal [facility] CHEMISTRY BNP 67 <=100 11/29/2012 Normal <sup>10</sup>Interpretive Data: Elevated results are in line with increasing severity of
congestive heart failure. Minor elevations between 100 and 300
may be seen with Myocardial Ischemia, Sodium retaining drugs,
and compensated/treated heart failure. [facility] CHEMISTRY eGFR 7 11/29/2012 NA <sup>6</sup>Result Comment: The eGFR is calculated using the CKD-EPI formula. In most young, healthy individuals the eGFR will be >90 mL/min/1.73m2. The eGFR declines with age. An eGFR of 60-89 may be normal in some populations, particularly the elderly, for whom the CKD-EPI formula has not been extensively validated. Use of the eGFR is not recommended in the following populations:& lt;br/>
Individuals with unstable creatinine concentrations, including patients and those with serious co-morbid conditions.

Patients with extremes in muscle mass or diet.

The data above are obtained from the National Kidney Disease Education Program (NKDEP) which additionally recommends that when the eGFR is used in patients with extremes of body mass index for purposes of drug dosing, the eGFR should be multiplied by the estimated BMI. [facility] CHEMISTRY B/C Ratio 6 6 - 25 11/29/2012 Normal [facility] CHEMISTRY AGAP 15.2 10.0 - 20.0 11/29/2012 Normal [facility] CHEMISTRY AST 22 0 - 37 11/29/2012 Normal [facility] CHEMISTRY Bili Total 0.3 0.2 - 1.3 11/29/2012 Normal [facility] CHEMISTRY Creatinine Lvl 6.2 0.5 - 1.4 11/29/2012 [facility] CHEMISTRY BUN 40 7 - 22 11/29/2012 [facility] CHEMISTRY ALT 36 0 - 65 11/29/2012 Normal [facility] CHEMISTRY Albumin Lvl 3.6 3.5 - 5.0 11/29/2012 Normal [facility] CHEMISTRY Alk Phos 138 39 - 136 11/29/2012 [facility] CHEMISTRY Total Protein 7.4 6.4 - 8.4 11/29/2012 Normal [facility] CHEMISTRY Calcium Lvl 8.3 8.5 - 10.5 11/29/2012 LOW [facility] CHEMISTRY Glucose Lvl 106 70 - 99 11/29/2012 HI <sup>9</sup>Interpretive Data: Adult ref erence range values reflect the clinical guidelines
of the [place] [employer]. [facility] CHEMISTRY CO2 29 24 - 32 11/29/2012 Normal [facility] CHEMISTRY A/G Ratio 0.9 0.7 - 1.6 11/29/2012 Normal [facility] CHEMISTRY Globulin 3.8 2.0 - 4.0 11/29/2012 Normal [facility] CHEMISTRY Chloride Lvl 98 95 - 109 11/29/2012 Normal [facility] CHEMISTRY Sodium Lvl 137 135 - 145 11/29/2012 Normal [facility] CHEMISTRY Potassium Lvl 5.2 3.5 - 5.1 11/29/2012 HI [facility] CHEMISTRY CK MB 0.6 0.5 - 3.6 11/29/2012 Normal [facility] CHEMISTRY CK MB Index 0.8 0.0 - 2.5 11/29/2012 Normal [facility] HEMATOLOGY INR 0.97 0.85 - 1.17 11/29/2012 Normal <sup>11</sup>Interpretive Data: RECOMMEN DED RANGES FOR PROTIME INR:
2.0-3.0 for most medical and surgical thromboembolic states.
2.5-3.5 for artificial heart valves and recurrent embolism.

INR SHOULD BE USED ONLY FOR PATIENTS ON STABLE ANTICOAGULANT THERAPY. [facility] HEMATOLOGY PTT 35.5 22.9 - 35.8 11/29/2012 Normal <sup>12</sup>Interpretive Data: Heparin Therapeutic Range: 57 - 92 Seconds [facility] HEMATOLOGY PT 13.1 12.0 - 14.7 11/29/2012 Normal [facility] HEMATOLOGY Platelet 208 133 - 450 11/29/2012 Normal [facility] HEMATOLOGY MPV 7.4 7.4 - 10.4 11/29/2012 Normal [facility] HEMATOLOGY RDW 16.1 11.5 - 14.5 11/29/2012 [facility] HEMATOLOGY MCH 31.1 27.0 - 31.0 11/29/2012 HI [facility] HEMATOLOGY MCHC 33.0 32.0 - 36.0 11/29/2012 Normal [facility] HEMATOLOGY MCV 94.3 81.0 - 99.0 11/29/2012 Normal [facility] HEMATOLOGY Hct 27.6 36.0 - 48.0 11/29/2012 LOW [facility] HEMATOLOGY RBC 2.93 4.20 - 5.40 11/29/2012 LOW [facility] HEMATOLOGY Hgb 9.1 12.0 - 16.0 11/29/2012 LOW [facility] HEMATOLOGY WBC 7.0 3.7 - 10.4 11/29/2012 Normal [facility] HEMATOLOGY Monocytes # 0.6 0.0 - 0.8 11/29/2012 Normal [facility] HEMATOLOGY Lymphocytes # 1.4 1.0 - 5.5 11/29/2012 Normal [facility] HEMATOLOGY Segs-Bands # 4.8 1.5 - 8.1 11/29/2012 Normal [facility] HEMATOLOGY Basophils 0.3 0.0 - 1.0 11/29/2012 Normal [facility] HEMATOLOGY Eosinophils 3.3 0.0 - 4.0 11/29/2012 Normal [facility] HEMATOLOGY Monocytes 9.1 2.0 - 12.0 11/29/2012 Normal [facility] HEMATOLOGY Lymphocytes 19.3 20.0 - 40.0 11/29/2012 LOW [facility] HEMATOLOGY Segs 68.0 45.0 - 75.0 11/29/2012 Normal [facility] HEMATOLOGY Basophils # 0.0 0.0 - 0.2 11/29/2012 Normal [facility] HEMATOLOGY Eosinophils # 0.2 0.0 - 0.5 11/29/2012 Normal [facility] BEDSIDE GLUCOSE TESTING Gluc POC Lif scn 119 70 - 99 09/10/2012 HI <sup>2</sup>Interpretive Data: Upper Reportable Limit: 200 mg/dL. [facility] BEDSIDE GLUCOSE TESTING Gluc POC Lif scn 148 70 - 99 09/10/2012 HI <sup>3</sup>Interpretive Data: Upper Reportable Limit: 200 mg/dL. [facility] BEDSIDE GLUCOSE TESTING Comment1 Notify RN/ 09/10/2012 NA [facility] BEDSIDE GLUCOSE TESTING Gluc POC Lif scn 198 70 - 99 09/10/2012 HI <sup>4</sup>Interpretive Data: Upper Reportable Limit: 200 mg/dL. [facility] BEDSIDE GLUCOSE TESTING Comment1 Notify RN/ 09/10/2012 NA [facility] BEDSIDE GLUCOSE TESTING Comment1 Notify RN/ 09/10/2012 NA [facility] CHEMISTRY Phosphorus 3.8 2.5 - 4.5 09/09/2012 Normal [facility] CHEMISTRY eGFR 9 09/09/2012 NA <sup>5</sup>Result Comment: The eGFR is calculated using the CKD-EPI formula. In most young, healthy individuals the eGFR will be >90 mL/min/1.73m2. The eGFR declines with age. An eGFR of 60-89 may be normal in some populations, particularly the elderly, for whom the CKD-EPI formula has not been extensively validated. Use of the eGFR is not recommended in the following populations:& lt;br/>
Individuals with unstable creatinine concentrations, including patients and those with serious co-morbid conditions.

Patients with extremes in muscle mass or diet.

The data above are obtained from the National Kidney Disease Education Program (NKDEP) which additionally recommends that when the eGFR is used in patients with extremes of body mass index for purposes of drug dosing, the eGFR should be multiplied by the estimated BMI. [facility] CHEMISTRY AGAP 14.5 10.0 - 20.0 09/09/2012 Normal [facility] CHEMISTRY Calcium Lvl 7.3 8.5 - 10.5 09/09/2012 LOW [facility] CHEMISTRY Chloride Lvl 96 95 - 109 09/09/2012 Normal [facility] CHEMISTRY CO2 28 24 - 32 09/09/2012 Normal [facility] CHEMISTRY Potassium Lvl 4.5 3.5 - 5.1 09/09/2012 Normal [facility] CHEMISTRY Sodium Lvl 134 135 - 145 09/09/2012 LOW [facility] CHEMISTRY BUN 45 7 - 22 09/09/2012 HI [facility] CHEMISTRY Creatinine Lvl 5.4 0.5 - 1.4 09/09/2012 [facility] CHEMISTRY Glucose Lvl 97 70 - 99 09/09/2012 Normal <sup>8</sup>Interpretive Data: Adult ref erence range values reflect the clinical guidelines
of the [place] [employer]. [facility] CHEMISTRY Magnesium Lvl 2.0 1.8 - 2.4 09/09/2012 Normal [facility] CHEMISTRY eGFR 7 09/08/2012 NA <sup>6</sup>Result Comment: The eGFR is calculated using the CKD-EPI formula. In most young, healthy individuals the eGFR will be >90 mL/min/1.73m2. The eGFR declines with age. An eGFR of 60-89 may be normal in some populations, particularly the elderly, for whom the CKD-EPI formula has not been extensively validated. Use of the eGFR is not recommended in the following populations:& lt;br/>
Individuals with unstable creatinine concentrations, including patients and those with serious co-morbid conditions.

Patients with extremes in muscle mass or diet.

The data above are obtained from the National Kidney Disease Education Program (NKDEP) which additionally recommends that when the eGFR is used in patients with extremes of body mass index for purposes of drug dosing, the eGFR should be multiplied by the estimated BMI. [facility] CHEMISTRY Creatinine Lvl 6.6 0.5 - 1.4 09/08/2012 [facility] CHEMISTRY Chloride Lvl 91 95 - 109 09/08/2012 LOW [facility] CHEMISTRY Sodium Lvl 127 135 - 145 09/08/2012 LOW [facility] CHEMISTRY BUN 63 7 - 22 09/08/2012 [facility] CHEMISTRY Potassium Lvl 4.6 3.5 - 5.1 09/08/2012 Normal [facility] CHEMISTRY Calcium Lvl 7.4 8.5 - 10.5 09/08/2012 LOW [facility] CHEMISTRY CO2 19 24 - 32 09/08/2012 [facility] CHEMISTRY Glucose Lvl 81 70 - 99 09/08/2012 Normal <sup>9</sup>Interpretive Data: Adult ref erence range values reflect the clinical guidelines
of the [place] [employer]. [facility] CHEMISTRY AGAP 21.6 10.0 - 20.0 09/08/2012 [facility] HEMATOLOGY Lymphocytes # 1.8 1.0 - 5.5 09/08/2012 Normal [facility] HEMATOLOGY Monocytes # 0.8 0.0 - 0.8 09/08/2012 Normal [facility] HEMATOLOGY Basophils 0.1 0.0 - 1.0 09/08/2012 Normal [facility] HEMATOLOGY Segs-Bands # 8.5 1.5 - 8.1 09/08/2012 [facility] HEMATOLOGY Eosinophils # 0.2 0.0 - 0.5 09/08/2012 Normal [facility] HEMATOLOGY RBC Morph Nicolasa l (09/08/2012 05:02:00) 09/08/2012 Normal [facility] HEMATOLOGY Lymphocytes 15.9 20.0 - 40.0 09/08/2012 LOW [facility] HEMATOLOGY Segs 74.6 45.0 - 75.0 09/08/2012 Normal [facility] HEMATOLOGY Monocytes 7.3 2.0 - 12.0 09/08/2012 Normal [facility] HEMATOLOGY Eosinophils 2.1 0.0 - 4.0 09/08/2012 Normal [facility] HEMATOLOGY Plt Morph Nicolasa l (09/08/2012 05:02:00) 09/08/2012 Normal [facility] HEMATOLOGY Basophils # 0.0 0.0 - 0.2 09/08/2012 Normal [facility] HEMATOLOGY MCH 31.2 27.0 - 31.0 09/08/2012 [facility] HEMATOLOGY MCV 93.2 81.0 - 99.0 09/08/2012 Normal [facility] HEMATOLOGY MCHC 33.5 32.0 - 36.0 09/08/2012 Normal [facility] HEMATOLOGY Hct 26.8 36.0 - 48.0 09/08/2012 LOW [facility] HEMATOLOGY Hgb 9.0 12.0 - 16.0 09/08/2012 LOW [facility] HEMATOLOGY RBC 2.88 4.20 - 5.40 09/08/2012 LOW [facility] HEMATOLOGY WBC 11.4 3.7 - 10.4 09/08/2012 HI [facility] HEMATOLOGY RDW 14.3 11.5 - 14.5 09/08/2012 Normal [facility] HEMATOLOGY MPV 7.2 7.4 - 10.4 09/08/2012 LOW [facility] HEMATOLOGY Platelet 200 133 - 450 09/08/2012 Normal [facility] Microbiology Culture: Urine 09/07/2012 [facility] URINALYSIS UA Urobilinogen 0.1 - 1.0 09/07/2012 NA [facility] URINALYSIS UA Color Cari 09/07/2012 [facility] URINALYSIS UA Amorph Ashly Moder ate /HPF *ABN* (09/07/2012 13:00:00) None S een 09/07/2012 ABN [facility] URINALYSIS UA Trans Epi 5 <=0 09/07/2012 [facility] URINALYSIS UA Ketones Negat sue mg/dL *NA* (09/07/2012 13:00:00) Negati ve 09/07/2012 NA [facility] URINALYSIS UA Glucose 50 mg /dL *ABN* (09/07/2012 13:00:00) Negati ve 09/07/2012 ABN [facility] URINALYSIS UA Turbidity Marke d *ABN* (09/07/2012 13:00:00) Clear 09/07/2012 ABN [facility] URINALYSIS UA Spec Grav 1.015 <=1.030 09/07/2012 Normal [facility] URINALYSIS UA pH 5.0 5.0 - 8.0 09/07/2012 Normal [facility] URINALYSIS UA Protein 100 m g/dL *ABN* (09/07/2012 13:00:00) Negati ve 09/07/2012 ABN [facility] URINALYSIS UA Leuk Est Small *ABN* (09/07/2012 13:00:00) Negati ve 09/07/2012 ABN [facility] URINALYSIS UA Sq Epi Many /LPF *ABN* (09/07/2012 13:00:00) Few 09/07/2012 ABN [facility] URINALYSIS UA Renal Epi 3 <=0 09/07/2012 [facility] URINALYSIS UA Bacteria Few / HPF *NA* (09/07/2012 13:00:00) None S een 09/07/2012 NA [facility] URINALYSIS UA RBC 4 0 - 2 09/07/2012 [facility] URINALYSIS UA WBC 16 0 - 5 09/07/2012 [facility] URINALYSIS UA Bili Negat sue *NA* (09/07/2012 13:00:00) Negati ve 09/07/2012 NA [facility] URINALYSIS UA Nitrite Negat sue (09/07/2012 13:00:00) Negati ve 09/07/2012 Normal [facility] URINALYSIS UA Blood Negat sue (09/07/2012 13:00:00) Negati ve 09/07/2012 Normal [facility] CHEMISTRY Magnesium Lvl 2.0 1.8 - 2.4 09/07/2012 Normal [facility] CHEMISTRY Phosphorus 6.2 2.5 - 4.5 09/07/2012 [facility] CHEMISTRY Total CK 60 12 - 191 09/07/2012 Normal [facility] CHEMISTRY AGAP 23.2 10.0 - 20.0 09/07/2012 [facility] CHEMISTRY CO2 23 24 - 32 09/07/2012 LOW [facility] CHEMISTRY Glucose Lvl 255 70 - 99 09/07/2012 HI <sup>10</sup>Interpretive Data: Adult re ference range values reflect the clinical guidelines
of the [place] [employer]. [facility] CHEMISTRY BUN 64 7 - 22 09/07/2012 [facility] CHEMISTRY Creatinine Lvl 7.0 0.5 - 1.4 09/07/2012 [facility] CHEMISTRY eGFR 6 09/07/2012 NA <sup>7</sup>Result Comment: The eGFR is calculated using the CKD-EPI formula. In most young, healthy individuals the eGFR will be >90 mL/min/1.73m2. The eGFR declines with age. An eGFR of 60-89 may be normal in some populations, particularly the elderly, for whom the CKD-EPI formula has not been extensively validated. Use of the eGFR is not recommended in the following populations:& lt;br/>
Individuals with unstable creatinine concentrations, including patients and those with serious co-morbid conditions.

Patients with extremes in muscle mass or diet.

The data above are obtained from the National Kidney Disease Education Program (NKDEP) which additionally recommends that when the eGFR is used in patients with extremes of body mass index for purposes of drug dosing, the eGFR should be multiplied by the estimated BMI. [facility] CHEMISTRY Sodium Lvl 129 135 - 145 09/07/2012 LOW [facility] CHEMISTRY Potassium Lvl 5.2 3.5 - 5.1 09/07/2012 [facility] CHEMISTRY Chloride Lvl 88 95 - 109 09/07/2012 [facility] CHEMISTRY Calcium Lvl 7.8 8.5 - 10.5 09/07/2012 [facility] HEMATOLOGY Basophils # 0.0 0.0 - 0.2 09/07/2012 Normal [facility] HEMATOLOGY Eosinophils # 0.0 0.0 - 0.5 09/07/2012 Normal [facility] HEMATOLOGY Monocytes # 0.8 0.0 - 0.8 09/07/2012 Normal [facility] HEMATOLOGY Lymphocytes # 0.9 1.0 - 5.5 09/07/2012 [facility] HEMATOLOGY Segs-Bands # 8.9 1.5 - 8.1 09/07/2012 [facility] HEMATOLOGY Basophils 0.1 0.0 - 1.0 09/07/2012 Normal [facility] HEMATOLOGY Eosinophils 0.1 0.0 - 4.0 09/07/2012 [facility] HEMATOLOGY Monocytes 7.9 2.0 - 12.0 09/07/2012 Normal [facility] HEMATOLOGY Lymphocytes 8.7 20.0 - 40.0 09/07/2012 [facility] HEMATOLOGY Segs 83.2 45.0 - 75.0 09/07/2012 [facility] HEMATOLOGY MPV 7.3 7.4 - 10.4 09/07/2012 [facility] HEMATOLOGY Platelet 215 133 - 450 09/07/2012 Normal [facility] HEMATOLOGY Hgb 9.1 12.0 - 16.0 09/07/2012 [facility] HEMATOLOGY RBC 2.85 4.20 - 5.40 09/07/2012 LOW [facility] HEMATOLOGY WBC 10.6 3.7 - 10.4 09/07/2012 HI [facility] HEMATOLOGY RDW 14.1 11.5 - 14.5 09/07/2012 Normal [facility] HEMATOLOGY MCHC 34.6 32.0 - 36.0 09/07/2012 Normal [facility] HEMATOLOGY MCH 32.0 27.0 - 31.0 09/07/2012 HI [facility] HEMATOLOGY MCV 92.5 81.0 - 99.0 09/07/2012 Normal [facility] HEMATOLOGY Hct 26.4 36.0 - 48.0 09/07/2012 LOW [facility] IMMUNOLOGY Hep Bs Ag Negat sue *NA* (09/07/2012 03:51:00) Negati ve 09/07/2012 NA [facility] BACTERIAL - SEROLOGY MRSA by PCR Negative 1 (09/06/2012 20:45:00) 09/07/2012 Normal <sup>1</sup>Interpretive Data: INTERPRETATION:
Negative......No MRSA DNA detected by PCR
Positive......MRSA DNA detected by PCR

ASSAY LIMITATIONS:

This is a screening test for colonization by MRSA. A positive
test result indicates the patient is colonized by MRSA, but
does not necessarily mean that an infection is present or that
treatment is necessary. Likewise, a negative test does not
exclude colonization or infection. Patients should be evaluated
clinically for symptoms and signs of infection before making
therapeutic decisions. Routine decolonization is discouraged
and should only be considered for select patients after
consultation with an infectious diseases specialist. [facility] CHEMISTRY TSH 1.740 0.360 - 3.740 09/06/2012 Normal [facility] HEMATOLOGY MPV 7.1 7.4 - 10.4 09/06/2012 LOW [facility] HEMATOLOGY Platelet 224 133 - 450 09/06/2012 Normal [facility] HEMATOLOGY RDW 14.2 11.5 - 14.5 09/06/2012 Normal [facility] HEMATOLOGY MCH 32.0 27.0 - 31.0 09/06/2012 HI [facility] HEMATOLOGY MCHC 34.4 32.0 - 36.0 09/06/2012 Normal [facility] HEMATOLOGY MCV 93.1 81.0 - 99.0 09/06/2012 Normal [facility] HEMATOLOGY Hgb 10.2 12.0 - 16.0 09/06/2012 LOW [facility] HEMATOLOGY RBC 3.18 4.20 - 5.40 09/06/2012 LOW [facility] HEMATOLOGY Hct 29.6 36.0 - 48.0 09/06/2012 LOW [facility] HEMATOLOGY WBC 8.3 3.7 - 10.4 09/06/2012 Normal [facility] HEMATOLOGY Basophils # 0.0 0.0 - 0.2 09/06/2012 Normal [facility] HEMATOLOGY Basophils 0.2 0.0 - 1.0 09/06/2012 Normal [facility] HEMATOLOGY Lymphocytes # 0.8 1.0 - 5.5 09/06/2012 LOW [facility] HEMATOLOGY Segs-Bands # 7.4 1.5 - 8.1 09/06/2012 Normal [facility] HEMATOLOGY Eosinophils # 0.0 0.0 - 0.5 09/06/2012 Normal [facility] HEMATOLOGY Monocytes # 0.1 0.0 - 0.8 09/06/2012 Normal [facility] HEMATOLOGY Eosinophils 0.2 0.0 - 4.0 09/06/2012 Normal [facility] HEMATOLOGY Lymphocytes 9.5 20.0 - 40.0 09/06/2012 LOW [facility] HEMATOLOGY Monocytes 1.3 2.0 - 12.0 09/06/2012 LOW [facility] HEMATOLOGY Segs 88.8 45.0 - 75.0 09/06/2012 [facility] CHEMISTRY ALT 28 0 - 65 09/05/2012 NA <sup>11</sup>Result Comment: Result obtained from lipoclear treated sample.09/05/2012 17:15:05 [employer], RP. [facility] CHEMISTRY Albumin Lvl 3.5 3.5 - 5.0 09/05/2012 Normal [facility] CHEMISTRY Alk Phos 136 39 - 136 09/05/2012 Normal [facility] CHEMISTRY AST 46 0 - 37 09/05/2012 [facility] CHEMISTRY Bili Total 0.5 0.2 - 1.3 09/05/2012 Normal [facility] CHEMISTRY Total Protein 8.7 6.4 - 8.4 09/05/2012 [facility] CHEMISTRY A/G Ratio 0.7 0.7 - 1.6 09/05/2012 Normal [facility] CHEMISTRY Globulin 5.2 2.0 - 4.0 09/05/2012 [facility] CHEMISTRY B/C Ratio 7 6 - 25 09/05/2012 Normal [facility] HEMATOLOGY Plt Morph Nicolasa l (09/05/2012 15:01:00) 09/05/2012 Normal [facility] HEMATOLOGY RBC Morph Nicolasa l (09/05/2012 15:01:00) 09/05/2012 Normal [facility] BEDSIDE GLUCOSE TESTING Gluc POC Lif scn 123 70 - 99 07/11/2012 HI <sup>1</sup>Interpretive Data: Upper Reportable Limit: 200 mg/dL. [facility] BEDSIDE GLUCOSE TESTING Gluc POC Lif scn 68 70 - 99 07/11/2012 LOW <sup>2</sup>Interpretive Data: Upper Reportable Limit: 200 mg/dL. [facility] BEDSIDE GLUCOSE TESTING Comment1 Notify RN/ 07/11/2012 NA [facility] CHEMISTRY Magnesium Lvl 2.4 1.8 - 2.4 07/11/2012 Normal [facility] CHEMISTRY Calcium Lvl 8.1 8.5 - 10.5 07/11/2012 LOW [facility] CHEMISTRY AGAP 16.7 10.0 - 20.0 07/11/2012 Normal [facility] CHEMISTRY Sodium Lvl 129 135 - 145 07/11/2012 LOW [facility] CHEMISTRY Creatinine Lvl 4.3 0.5 - 1.4 07/11/2012 HI [facility] CHEMISTRY Chloride Lvl 93 95 - 109 07/11/2012 LOW [facility] CHEMISTRY Potassium Lvl 4.7 3.5 - 5.1 07/11/2012 Normal [facility] CHEMISTRY CO2 24 24 - 32 07/11/2012 Normal [facility] CHEMISTRY Glucose Lvl 81 70 - 99 07/11/2012 Normal <sup>7</sup>Interpretive Data: Adult ref erence range values reflect the clinical guidelines
of the [place] [employer]. [facility] CHEMISTRY BUN 41 7 - 22 07/11/2012 HI [facility] BEDSIDE GLUCOSE TESTING Comment1 Notify GI/ 07/11/2012 NA [facility] BEDSIDE GLUCOSE TESTING Gluc POC Lif scn 174 70 - 99 07/11/2012 HI <sup>3</sup>Interpretive Data: Upper Reportable Limit: 200 mg/dL. [facility] BEDSIDE GLUCOSE TESTING Comment1 Notify GI/ 07/10/2012 NA [facility] CHEMISTRY Magnesium Lvl 2.0 1.8 - 2.4 07/10/2012 Normal [facility] CHEMISTRY Chloride Lvl 97 95 - 109 07/10/2012 Normal [facility] CHEMISTRY Potassium Lvl 4.3 3.5 - 5.1 07/10/2012 Normal [facility] CHEMISTRY Calcium Lvl 7.3 8.5 - 10.5 07/10/2012 [facility] CHEMISTRY CO2 28 24 - 32 07/10/2012 Normal [facility] CHEMISTRY BUN 31 7 - 22 07/10/2012 [facility] CHEMISTRY Sodium Lvl 134 135 - 145 07/10/2012 [facility] CHEMISTRY Creatinine Lvl 3.9 0.5 - 1.4 07/10/2012 [facility] CHEMISTRY Glucose Lvl 96 70 - 99 07/10/2012 Normal <sup>8</sup>Interpretive Data: Adult ref erence range values reflect the clinical guidelines
of the [place] [employer]. [facility] CHEMISTRY AGAP 13.3 10.0 - 20.0 07/10/2012 Normal [facility] HEMATOLOGY MPV 5.9 7.4 - 10.4 07/10/2012 [facility] HEMATOLOGY MCHC 34.7 32.0 - 36.0 07/10/2012 Normal [facility] HEMATOLOGY MCH 32.8 27.0 - 31.0 07/10/2012 [facility] HEMATOLOGY Platelet 305 133 - 450 07/10/2012 Normal [facility] HEMATOLOGY RDW 16.2 11.5 - 14.5 07/10/2012 [facility] HEMATOLOGY MCV 94.3 81.0 - 99.0 07/10/2012 Normal [facility] HEMATOLOGY RBC 2.72 4.20 - 5.40 07/10/2012 [facility] HEMATOLOGY WBC 7.5 3.7 - 10.4 07/10/2012 Normal [facility] HEMATOLOGY Hct 25.6 36.0 - 48.0 07/10/2012 [facility] HEMATOLOGY Hgb 8.9 12.0 - 16.0 07/10/2012 [facility] HEMATOLOGY Basophils # 0.0 0.0 - 0.2 07/10/2012 Normal [facility] HEMATOLOGY Lymphocytes # 1.1 1.0 - 5.5 07/10/2012 Normal [facility] HEMATOLOGY Monocytes # 0.8 0.0 - 0.8 07/10/2012 Normal [facility] HEMATOLOGY Eosinophils # 0.3 0.0 - 0.5 07/10/2012 Normal [facility] HEMATOLOGY Basophils 0.3 0.0 - 1.0 07/10/2012 Normal [facility] HEMATOLOGY Segs-Bands # 5.3 1.5 - 8.1 07/10/2012 Normal [facility] HEMATOLOGY Lymphocytes 14.4 20.0 - 40.0 07/10/2012 LOW [facility] HEMATOLOGY Monocytes 10.6 2.0 - 12.0 07/10/2012 Normal [facility] HEMATOLOGY Eosinophils 4.0 0.0 - 4.0 07/10/2012 Normal [facility] HEMATOLOGY Segs 70.7 45.0 - 75.0 07/10/2012 Normal [facility] IMMUNOLOGY Hep Bs Ag Negat sue *NA* (07/08/2012 14:00:00) Negati ve 07/08/2012 NA [facility] CHEMISTRY Chloride Lvl 96 95 - 109 07/06/2012 Normal [facility] CHEMISTRY Potassium Lvl 4.4 3.5 - 5.1 07/06/2012 Normal [facility] CHEMISTRY Sodium Lvl 131 135 - 145 07/06/2012 LOW [facility] CHEMISTRY eGFR 9 07/06/2012 NA <sup>4</sup>Result Comment: Expected eGFR for >20 yr. age group: >=60 ml/min/1.73 sq m

The eGFR calculation is not valid in or for

persons < 18 years of age.

From National Kid[employer] Disease Education Program (NKDEP) [facility] CHEMISTRY AGAP 14.4 10.0 - 20.0 07/06/2012 Normal [facility] CHEMISTRY Calcium Lvl 7.3 8.5 - 10.5 07/06/2012 LOW [facility] CHEMISTRY CO2 25 24 - 32 07/06/2012 Normal [facility] CHEMISTRY Creatinine Lvl 5.3 0.5 - 1.4 07/06/2012 [facility] CHEMISTRY BUN 41 7 - 22 07/06/2012 [facility] CHEMISTRY Glucose Lvl 117 70 - 99 07/06/2012 [facility] <sup>9</sup>Interpretive Data: Adult ref erence range values reflect the clinical guidelines
of the [place] [employer]. [facility] CHEMISTRY Phosphorus 6.1 2.5 - 4.5 07/06/2012 [facility] CHEMISTRY Ferritin Lvl 1369 5 - 204 07/06/2012 [facility] CHEMISTRY Transferrin 186 212 - 360 07/06/2012 [facility] CHEMISTRY Iron 68 30 - 160 07/06/2012 [facility] CHEMISTRY TIBC 240 228 - 428 07/06/2012 [facility] CHEMISTRY % Satur Fe 28 12 - 57 07/06/2012 Normal [facility] CHEMISTRY UIBC 172 110 - 370 07/06/2012 Normal [facility] HEMATOLOGY Segs-Bands # 5.9 1.5 - 8.1 07/06/2012 Normal [facility] HEMATOLOGY Basophils 0.3 0.0 - 1.0 07/06/2012 [facility] HEMATOLOGY Segs 68.9 45.0 - 75.0 07/06/2012 Normal [facility] HEMATOLOGY Eosinophils # 0.4 0.0 - 0.5 07/06/2012 [facility] HEMATOLOGY Lymphocytes # 1.4 1.0 - 5.5 07/06/2012 [facility] HEMATOLOGY Monocytes # 0.9 0.0 - 0.8 07/06/2012 [facility] HEMATOLOGY Basophils # 0.0 0.0 - 0.2 07/06/2012 Normal [facility] HEMATOLOGY Eosinophils 4.7 0.0 - 4.0 07/06/2012 [facility] HEMATOLOGY Lymphocytes 16.1 20.0 - 40.0 07/06/2012 [facility] HEMATOLOGY Monocytes 10.0 2.0 - 12.0 07/06/2012 Normal [facility] HEMATOLOGY MCHC 34.0 32.0 - 36.0 07/06/2012 [facility] HEMATOLOGY RDW 17.4 11.5 - 14.5 07/06/2012 [facility] HEMATOLOGY Hgb 8.3 12.0 - 16.0 07/06/2012 [facility] HEMATOLOGY Platelet 211 133 - 450 07/06/2012 [facility] HEMATOLOGY MPV 6.5 7.4 - 10.4 07/06/2012 [facility] HEMATOLOGY RBC 2.56 4.20 - 5.40 07/06/2012 [facility] HEMATOLOGY MCV 95.7 81.0 - 99.0 07/06/2012 [facility] HEMATOLOGY MCH 32.6 27.0 - 31.0 07/06/2012 [facility] HEMATOLOGY Hct 24.5 36.0 - 48.0 07/06/2012 LOW [facility] HEMATOLOGY WBC 8.5 3.7 - 10.4 07/06/2012 Normal [facility] CHEMISTRY eGFR 8 07/04/2012 NA <sup>5</sup>Result Comment: Expected eGFR for >20 yr. age group: >=60 ml/min/1.73 sq m

The eGFR calculation is not valid in or for

persons < 18 years of age.

From [employer] Education Program (NKDEP) [facility] CHEMISTRY Albumin Lvl 3.2 3.5 - 5.0 07/04/2012 LOW [facility] CHEMISTRY Alk Phos 116 39 - 136 07/04/2012 Normal [facility] CHEMISTRY B/C Ratio 9 6 - 25 07/04/2012 Normal [facility] CHEMISTRY Bili Total 0.7 0.2 - 1.3 07/04/2012 Normal [facility] CHEMISTRY AST 14 0 - 37 07/04/2012 Normal [facility] CHEMISTRY Globulin 3.4 2.0 - 4.0 07/04/2012 Normal [facility] CHEMISTRY A/G Ratio 0.9 0.7 - 1.6 07/04/2012 Normal [facility] CHEMISTRY ALT 28 0 - 65 07/04/2012 Normal [facility] CHEMISTRY Total Protein 6.6 6.4 - 8.4 07/04/2012 Normal [facility] CHEMISTRY Phosphorus 5.7 2.5 - 4.5 07/04/2012 HI [facility] HEMATOLOGY MPV 6.9 7.4 - 10.4 07/04/2012 LOW [facility] HEMATOLOGY Platelet 187 133 - 450 07/04/2012 Normal [facility] HEMATOLOGY RDW 18.2 11.5 - 14.5 07/04/2012 [facility] HEMATOLOGY WBC 9.9 3.7 - 10.4 07/04/2012 Normal [facility] HEMATOLOGY MCH 31.8 27.0 - 31.0 07/04/2012 [facility] HEMATOLOGY Hgb 8.5 12.0 - 16.0 07/04/2012 LOW [facility] HEMATOLOGY RBC 2.67 4.20 - 5.40 07/04/2012 LOW [facility] HEMATOLOGY MCV 96.7 81.0 - 99.0 07/04/2012 Normal [facility] HEMATOLOGY MCHC 32.8 32.0 - 36.0 07/04/2012 Normal [facility] HEMATOLOGY Hct 25.8 36.0 - 48.0 07/04/2012 LOW [facility] HEMATOLOGY Basophils # 0.0 0.0 - 0.2 07/04/2012 Normal [facility] HEMATOLOGY Monocytes # 0.5 0.0 - 0.8 07/04/2012 Normal [facility] HEMATOLOGY Segs-Bands # 8.2 1.5 - 8.1 07/04/2012 [facility] HEMATOLOGY Eosinophils # 0.2 0.0 - 0.5 07/04/2012 Normal [facility] HEMATOLOGY Lymphocytes # 1.0 1.0 - 5.5 07/04/2012 Normal [facility] HEMATOLOGY Basophils 0.2 0.0 - 1.0 07/04/2012 Normal [facility] HEMATOLOGY Lymphocytes 9.7 20.0 - 40.0 07/04/2012 LOW [facility] HEMATOLOGY Eosinophils 2.1 0.0 - 4.0 07/04/2012 Normal [facility] HEMATOLOGY Monocytes 5.1 2.0 - 12.0 07/04/2012 Normal [facility] HEMATOLOGY Segs 82.9 45.0 - 75.0 07/04/2012 HI [facility] CHEMISTRY Albumin Lvl 3.7 3.5 - 5.0 07/03/2012 Normal [facility] CHEMISTRY ALT 32 0 - 65 07/03/2012 Normal [facility] CHEMISTRY Total Protein 7.5 6.4 - 8.4 07/03/2012 Normal [facility] CHEMISTRY B/C Ratio 8 6 - 25 07/03/2012 Normal [facility] CHEMISTRY Bili Total 0.5 0.2 - 1.3 07/03/2012 Normal [facility] CHEMISTRY Alk Phos 107 39 - 136 07/03/2012 Normal [facility] CHEMISTRY AST 14 0 - 37 07/03/2012 Normal [facility] CHEMISTRY Globulin 3.8 2.0 - 4.0 07/03/2012 Normal [facility] CHEMISTRY A/G Ratio 1.0 0.7 - 1.6 07/03/2012 Normal [facility] CHEMISTRY eGFR 9 07/03/2012 NA <sup>6</sup>Result Comment: Expected eGFR for >20 yr. age group: >=60 ml/min/1.73 sq m

The eGFR calculation is not valid in or for

persons < 18 years of age.

From [employer] Education [employer] (NKDEP) [facility] Microbiology Culture: Blood 07/03/2012 [facility] CHEMISTRY CK MB Index 1.5 0.0 - 2.5 07/02/2012 Normal [facility] CHEMISTRY Phosphorus 7.1 2.5 - 4.5 07/02/2012 [facility] CHEMISTRY B/C Ratio 8 6 - 25 07/02/2012 Normal [facility] CHEMISTRY A/G Ratio 1.0 0.7 - 1.6 07/02/2012 Normal [facility] CHEMISTRY Globulin 3.6 2.0 - 4.0 07/02/2012 Normal [facility] CHEMISTRY Alk Phos 107 39 - 136 07/02/2012 Normal [facility] CHEMISTRY Bili Total 0.4 0.2 - 1.3 07/02/2012 Normal [facility] CHEMISTRY AST 21 0 - 37 07/02/2012 Normal [facility] CHEMISTRY ALT 38 0 - 65 07/02/2012 Normal [facility] CHEMISTRY Albumin Lvl 3.6 3.5 - 5.0 07/02/2012 Normal [facility] CHEMISTRY Total Protein 7.2 6.4 - 8.4 07/02/2012 Normal [facility] CHEMISTRY Magnesium Lvl 1.9 1.8 - 2.4 07/02/2012 Normal [facility] CHEMISTRY Troponin-I <0.02 0.00 - 0.40 07/02/2012 Normal [facility] CHEMISTRY CK MB 0.7 0.5 - 3.6 07/02/2012 Normal [facility] CHEMISTRY Total CK 48 12 - 191 07/02/2012 Normal [facility] CHEMISTRY CK MB Index <1.1 0.0 - 2.5 07/02/2012 Normal [facility] CHEMISTRY CK MB <0.5 0.5 - 3.6 07/02/2012 Normal [facility] CHEMISTRY Total CK 47 12 - 191 07/02/2012 Normal [facility] CHEMISTRY Troponin-I <0.02 0.00 - 0.40 07/02/2012 Normal [facility] Microbiology Culture: Urine 07/01/2012 [facility] URINALYSIS UA Urobilinogen 0.1 - 1.0 07/01/2012 NA [facility] URINALYSIS UA Color Cari 07/01/2012 [facility] URINALYSIS UA RBC 4 0 - 2 07/01/2012 [facility] URINALYSIS UA Mucus Few / LPF *NA* (06/30/2012 23:00:00) None S een 07/01/2012 [facility] URINALYSIS UA Bacteria Moder ate /HPF *ABN* (06/30/2012 23:00:00) None S een 07/01/2012 ABN [facility] URINALYSIS UA WBC >182 0 - 5 07/01/2012 [facility] URINALYSIS UA Bili Negat sue *NA* (06/30/2012 23:00:00) Negati ve 07/01/2012 [facility] URINALYSIS UA Ketones Negat sue mg/dL *NA* (06/30/2012 23:00:00) Negati ve 07/01/2012 NA [facility] URINALYSIS UA Nitrite Negat sue (06/30/2012 23:00:00) Negati ve 07/01/2012 Normal [facility] URINALYSIS UA Blood Negat sue (06/30/2012 23:00:00) Negati ve 07/01/2012 Normal [facility] URINALYSIS UA Leuk Est Large *ABN* (06/30/2012 23:00:00) Negati ve 07/01/2012 ABN [facility] URINALYSIS UA Glucose Negat sue mg/dL *NA* (06/30/2012 23:00:00) Negati ve 07/01/2012 NA [facility] URINALYSIS UA Protein >=300 mg/dL *ABN* (06/30/2012 23:00:00) Negati ve 07/01/2012 ABN [facility] URINALYSIS UA pH 6.0 5.0 - 8.0 07/01/2012 Normal [facility] URINALYSIS UA Sq Epi None Seen 07/01/2012 [facility] URINALYSIS UA Spec Grav 1.013 <=1.030 07/01/2012 Normal [facility] URINALYSIS UA Turbidity Marke d *ABN* (06/30/2012 23:00:00) Clear 07/01/2012 ABN [facility] CHEMISTRY Total CK 66 12 - 191 07/01/2012 Normal [facility] CHEMISTRY Troponin-I <0.02 0.00 - 0.40 07/01/2012 Normal [facility] CHEMISTRY CK MB 1.1 0.5 - 3.6 07/01/2012 Normal [facility] CHEMISTRY CK MB Index 1.7 0.0 - 2.5 07/01/2012 Normal [facility] BEDSIDE GLUCOSE TESTING Comment1 Notify GI/ 02/16/2012 NA [facility] BEDSIDE GLUCOSE TESTING Gluc POC Lif scn 97 70 - 99 02/16/2012 Normal <sup>7</sup>Interpretive Data: Upper Reportable Limit: 200 mg/dL. [facility] BEDSIDE GLUCOSE TESTING Comment1 Notify GI/ 02/16/2012 [facility] BEDSIDE GLUCOSE TESTING Gluc POC Lif scn 169 70 - 99 02/16/2012 [facility] <sup>8</sup>Interpretive Data: Upper Reportable Limit: 200 mg/dL. [facility] BEDSIDE GLUCOSE TESTING Gluc POC Lif scn 118 70 - 99 02/16/2012 [facility] <sup>9</sup>Interpretive Data: Upper Reportable Limit: 200 mg/dL. [facility] BEDSIDE GLUCOSE TESTING Comment1 Notify RN/ 02/16/2012 NA [facility] CHEMISTRY Chloride Lvl 94 95 - 109 02/16/2012 LOW [facility] CHEMISTRY Potassium Lvl 4.4 3.5 - 5.1 02/16/2012 Normal [facility] CHEMISTRY Sodium Lvl 133 135 - 145 02/16/2012 [facility] CHEMISTRY Creatinine Lvl 3.8 0.5 - 1.4 02/16/2012 [facility] CHEMISTRY BUN 32 7 - 22 02/16/2012 [facility] CHEMISTRY CO2 26 24 - 32 02/16/2012 Normal [facility] CHEMISTRY Calcium Lvl 8.3 8.5 - 10.5 02/16/2012 [facility] CHEMISTRY Glucose Lvl 98 70 - 99 02/16/2012 Normal <sup>13</sup>Interpretive Data: Adult re ference range values reflect the clinical guidelines of the [place] [employer]. [facility] CHEMISTRY AGAP 17.4 10.0 - 20.0 02/16/2012 Normal [facility] HEMATOLOGY Platelet 336 133 - 450 02/16/2012 Normal [facility] HEMATOLOGY MPV 7.0 7.4 - 10.4 02/16/2012 [facility] HEMATOLOGY WBC 5.6 3.7 - 10.4 02/16/2012 Normal [facility] HEMATOLOGY RBC 2.95 4.20 - 5.40 02/16/2012 [facility] HEMATOLOGY Hct 25.7 36.0 - 48.0 02/16/2012 [facility] HEMATOLOGY MCV 87.2 81.0 - 99.0 02/16/2012 Normal [facility] HEMATOLOGY Hgb 8.4 12.0 - 16.0 02/16/2012 LOW [facility] HEMATOLOGY MCHC 32.7 32.0 - 36.0 02/16/2012 Normal [facility] HEMATOLOGY RDW 17.9 11.5 - 14.5 02/16/2012 [facility] HEMATOLOGY MCH 28.5 27.0 - 31.0 02/16/2012 Normal [facility] HEMATOLOGY Lymphocytes 19.1 20.0 - 40.0 02/16/2012 [facility] HEMATOLOGY Segs 65.1 45.0 - 75.0 02/16/2012 Normal [facility] HEMATOLOGY Monocytes 9.5 2.0 - 12.0 02/16/2012 Normal [facility] HEMATOLOGY Eosinophils 5.8 0.0 - 4.0 02/16/2012 [facility] HEMATOLOGY Basophils 0.5 0.0 - 1.0 02/16/2012 Normal [facility] HEMATOLOGY Segs-Bands # 3.6 1.5 - 8.1 02/16/2012 Normal [facility] HEMATOLOGY Lymphocytes # 1.1 1.0 - 5.5 02/16/2012 Normal [facility] HEMATOLOGY Eosinophils # 0.3 0.0 - 0.5 02/16/2012 Normal [facility] HEMATOLOGY Monocytes # 0.5 0.0 - 0.8 02/16/2012 Normal [facility] HEMATOLOGY Basophils # 0.0 0.0 - 0.2 02/16/2012 Normal [facility] BEDSIDE GLUCOSE TESTING Comment2 Notify RN/MD 02/16/2012 NA [facility] CHEMISTRY Total Protein 7.3 6.4 - 8.4 02/15/2012 Normal [facility] CHEMISTRY Albumin Lvl 2.9 3.5 - 5.0 02/15/2012 LOW [facility] CHEMISTRY AST 8 0 - 37 02/15/2012 Normal [facility] CHEMISTRY Bili Total 0.6 0.2 - 1.3 02/15/2012 Normal [facility] CHEMISTRY Alk Phos 125 39 - 136 02/15/2012 Normal [facility] CHEMISTRY ALT 10 0 - 65 02/15/2012 Normal [facility] CHEMISTRY Chloride Lvl 92 95 - 109 02/15/2012 LOW [facility] CHEMISTRY Calcium Lvl 8.7 8.5 - 10.5 02/15/2012 Normal [facility] CHEMISTRY CO2 23 24 - 32 02/15/2012 LOW [facility] CHEMISTRY Potassium Lvl 5.1 3.5 - 5.1 02/15/2012 Normal [facility] CHEMISTRY AGAP 18.1 10.0 - 20.0 02/15/2012 Normal [facility] CHEMISTRY A/G Ratio 0.7 0.7 - 1.6 02/15/2012 Normal [facility] CHEMISTRY B/C Ratio 10 6 - 25 02/15/2012 Normal [facility] CHEMISTRY Globulin 4.4 2.0 - 4.0 02/15/2012 [facility] CHEMISTRY eGFR 8 02/15/2012 NA <sup>10</sup>Result Comment: Expected eGFR for >20 yr. age group: >=60 ml/min/1.73 sq m The eGFR calculation is not valid in or for persons < 18 years of age. From [employer] Kid[employer] Disease Education [employer] (NKDEP) [facility] CHEMISTRY Sodium Lvl 128 135 - 145 02/15/2012 [facility] CHEMISTRY Creatinine Lvl 5.8 0.5 - 1.4 02/15/2012 [facility] CHEMISTRY BUN 57 7 - 22 02/15/2012 [facility] CHEMISTRY Glucose Lvl 129 70 - 99 02/15/2012 [place] <sup>14</sup>Interpretive Data: Adult re ference range values reflect the clinical guidelines of the [place] [employer]. [facility] HEMATOLOGY MPV 6.8 7.4 - 10.4 02/15/2012 LOW [facility] HEMATOLOGY MCH 29.3 27.0 - 31.0 02/15/2012 Normal [facility] HEMATOLOGY Platelet 311 133 - 450 02/15/2012 Normal [facility] HEMATOLOGY RDW 18.1 11.5 - 14.5 02/15/2012 [facility] HEMATOLOGY MCHC 33.9 32.0 - 36.0 02/15/2012 Normal [facility] HEMATOLOGY MCV 86.6 81.0 - 99.0 02/15/2012 Normal [facility] HEMATOLOGY Hct 26.2 36.0 - 48.0 02/15/2012 LOW [facility] HEMATOLOGY WBC 7.1 3.7 - 10.4 02/15/2012 Normal [facility] HEMATOLOGY Hgb 8.9 12.0 - 16.0 02/15/2012 [facility] HEMATOLOGY RBC 3.03 4.20 - 5.40 02/15/2012 [facility] HEMATOLOGY Basophils # 0.0 0.0 - 0.2 02/15/2012 Normal [facility] HEMATOLOGY Lymphocytes # 1.1 1.0 - 5.5 02/15/2012 Normal [facility] HEMATOLOGY Eosinophils # 0.4 0.0 - 0.5 02/15/2012 Normal [facility] HEMATOLOGY Monocytes # 0.5 0.0 - 0.8 02/15/2012 Normal [facility] HEMATOLOGY Segs 70.9 45.0 - 75.0 02/15/2012 Normal [facility] HEMATOLOGY Basophils 0.3 0.0 - 1.0 02/15/2012 Normal [facility] HEMATOLOGY Segs-Bands # 5.0 1.5 - 8.1 02/15/2012 Normal [facility] HEMATOLOGY Lymphocytes 15.3 20.0 - 40.0 02/15/2012 [facility] HEMATOLOGY Monocytes 7.4 2.0 - 12.0 02/15/2012 Normal [facility] HEMATOLOGY Eosinophils 6.1 0.0 - 4.0 02/15/2012 [facility] [place] CHEMISTRY BUN 50 7 - 22 02/14/2012 [facility] CHEMISTRY Glucose Lvl 103 70 - 99 02/14/2012 [facility] <sup>15</sup>Interpretive Data: Adult re ference range values reflect the clinical guidelines of the [place] [employer]. [facility] CHEMISTRY eGFR 10 02/14/2012 NA <sup>11</sup>Result Comment: Expected eGFR for >20 yr. age group: >=60 ml/min/1.73 sq m The eGFR calculation is not valid in or for persons < 18 years of age. From National Kid[employer] Disease Education Program (NKDEP) [place] CHEMISTRY AGAP 20.2 10.0 - 20.0 02/14/2012 [facility] CHEMISTRY Globulin 4.6 2.0 - 4.0 02/14/2012 [facility] CHEMISTRY B/C Ratio 10 6 - 25 02/14/2012 Normal [facility] CHEMISTRY A/G Ratio 0.7 0.7 - 1.6 02/14/2012 Normal [facility] CHEMISTRY ALT 16 0 - 65 02/14/2012 Normal [facility] CHEMISTRY Albumin Lvl 3.0 3.5 - 5.0 02/14/2012 LOW [facility] CHEMISTRY Bili Total 0.4 0.2 - 1.3 02/14/2012 Normal [facility] CHEMISTRY Alk Phos 122 39 - 136 02/14/2012 Normal [facility] CHEMISTRY AST 18 0 - 37 02/14/2012 Normal [facility] CHEMISTRY Chloride Lvl 94 95 - 109 02/14/2012 LOW [facility] CHEMISTRY Potassium Lvl 5.2 3.5 - 5.1 02/14/2012 [facility] CHEMISTRY Calcium Lvl 8.8 8.5 - 10.5 02/14/2012 Normal [facility] CHEMISTRY CO2 21 24 - 32 02/14/2012 LOW [facility] CHEMISTRY Total Protein 7.6 6.4 - 8.4 02/14/2012 Normal [facility] CHEMISTRY Creatinine Lvl 4.9 0.5 - 1.4 02/14/2012 [facility] CHEMISTRY Sodium Lvl 130 135 - 145 02/14/2012 LOW [facility] CHEMISTRY Lipase Lvl 127 73 - 393 02/14/2012 Normal [facility] CHEMISTRY Amylase Lvl 54 25 - 115 02/14/2012 Normal [facility] HEMATOLOGY RDW 18.4 11.5 - 14.5 02/14/2012 [facility] HEMATOLOGY Platelet 356 133 - 450 02/14/2012 Normal [facility] HEMATOLOGY MPV 6.7 7.4 - 10.4 02/14/2012 LOW [facility] HEMATOLOGY MCHC 33.3 32.0 - 36.0 02/14/2012 Normal [facility] HEMATOLOGY MCH 28.8 27.0 - 31.0 02/14/2012 Normal [facility] HEMATOLOGY MCV 86.6 81.0 - 99.0 02/14/2012 Normal [facility] HEMATOLOGY RBC 3.24 4.20 - 5.40 02/14/2012 LOW [facility] HEMATOLOGY WBC 9.4 3.7 - 10.4 02/14/2012 Normal [facility] HEMATOLOGY Hgb 9.3 12.0 - 16.0 02/14/2012 LOW [facility] HEMATOLOGY Hct 28.1 36.0 - 48.0 02/14/2012 LOW [facility] HEMATOLOGY Eosinophils # 0.4 0.0 - 0.5 02/14/2012 Normal [facility] HEMATOLOGY Basophils # 0.0 0.0 - 0.2 02/14/2012 Normal [facility] HEMATOLOGY Monocytes # 0.4 0.0 - 0.8 02/14/2012 Normal [facility] HEMATOLOGY Segs-Bands # 7.3 1.5 - 8.1 02/14/2012 Normal [facility] HEMATOLOGY Lymphocytes # 1.3 1.0 - 5.5 02/14/2012 [facility] HEMATOLOGY Basophils 0.3 0.0 - 1.0 02/14/2012 Normal [facility] HEMATOLOGY Plt Morph Nicolasa l (02/14/2012 06:10:00) 02/14/2012 Normal [facility] HEMATOLOGY RBC Morph Nicolasa l (02/14/2012 06:10:00) 02/14/2012 Normal [facility] HEMATOLOGY Monocytes 4.6 2.0 - 12.0 02/14/2012 Normal [facility] HEMATOLOGY Segs 77.5 45.0 - 75.0 02/14/2012 [facility] HEMATOLOGY Eosinophils 4.2 0.0 - 4.0 02/14/2012 [facility] HEMATOLOGY Lymphocytes 13.4 20.0 - 40.0 02/14/2012 LOW [facility] BODY FLUIDS Bili BF Type Abdo mn *NA* (02/12/2012 13:24:00) 02/12/2012 NA [facility] BODY FLUIDS Bili BF 0.5 02/12/2012 NA <sup>1</sup>Interpretive Data: No established reference ranges. [facility] BODY FLUIDS Clarity BF Maricarmen r (02/12/2012 13:24:00) Clear 02/12/2012 Normal [facility] BODY FLUIDS RBC BF 148 02/12/2012 NA <sup>4</sup>Interpretive Data: No established reference ranges. [facility] BODY FLUIDS Color BF Mineral ow (02/12/2012 13:24:00) Colorl ess 02/12/2012 Normal [facility] BODY FLUIDS WBC BF 21 02/12/2012 NA <sup>5</sup>Interpretive Data: No established reference ranges. [facility] BODY FLUIDS CellCnt BF Type Abdo mn (02/12/2012 13:24:00) 02/12/2012 Normal [facility] BODY FLUIDS Eos BF 5 02/12/2012 NA [facility] BODY FLUIDS Macrophage BF 5 02/12/2012 NA [facility] BODY FLUIDS Segs BF 70 02/12/2012 NA <sup>6</sup>Interpretive Data: No established reference ranges. [facility] BODY FLUIDS Meso BF Occa sional (02/12/2012 13:24:00) 02/12/2012 Normal [facility] FLUIDS Lymph BF 20 02/12/2012 NA [facility] BODY FLUIDS Prot BF Type Abdo mn *NA* (02/12/2012 13:24:00) 02/12/2012 NA [facility] BODY FLUIDS Protein BF 6.2 02/12/2012 NA <sup>2</sup>Interpretive Data: No establ ished reference ranges. [facility] BODY FLUIDS LDH BF Type Abdo mn *NA* (02/12/2012 13:24:00) 02/12/2012 NA [facility] BODY FLUIDS LDH BF 410 02/12/2012 NA <sup>3</sup>Interpretive Data: No established reference ranges. [facility] Microbiology Culture: Aspirate/Body Fluid/Tissue 02/12/2012 [facility] CHEMISTRY Phosphorus 4.8 2.5 - 4.5 02/12/2012 [facility] CHEMISTRY eGFR 13 02/12/2012 NA <sup>12</sup>Result Comment: Expected eGFR for >20 yr. age group: >=60 ml/min/1.73 sq m The eGFR calculation is not valid in or for persons < 18 years of age. From National Kid[employer] Disease Education Program (NKDEP) [facility] BEDSIDE GLUCOSE TESTING Comment2 Notify RN/ 02/11/2012 [facility] BEDSIDE GLUCOSE TESTING Comment3 Notify RN/ 02/10/2012 [facility] BEDSIDE GLUCOSE TESTING Comment2 Verify w/ Lab 02/10/2012 NA [facility] Microbiology Culture: Urine 02/01/2012 [facility] CHEMISTRY Alk Phos 104 39 - 136 02/01/2012 Normal [facility] CHEMISTRY ALT 12 0 - 65 02/01/2012 Normal [facility] CHEMISTRY Albumin Lvl 2.9 3.5 - 5.0 02/01/2012 LOW [facility] CHEMISTRY Total Protein 7.6 6.4 - 8.4 02/01/2012 Normal [facility] CHEMISTRY AST 15 0 - 37 02/01/2012 Normal [facility] CHEMISTRY Bili Total 0.3 0.2 - 1.3 02/01/2012 Normal [facility] CHEMISTRY A/G Ratio 0.6 0.7 - 1.6 02/01/2012 LOW [facility] CHEMISTRY Globulin 4.7 2.0 - 4.0 02/01/2012 HI [facility] CHEMISTRY B/C Ratio 10 6 - 25 02/01/2012 Normal [facility] HEMATOLOGY Large Plt Sligh t *ABN* (01/31/2012 20:00:00) None S een 02/01/2012 ABN [facility] HEMATOLOGY RBC Morph Nicolasa l (01/31/2012 20:00:00) 02/01/2012 Normal [facility] HEMATOLOGY PTT 29.6 22.9 - 35.8 02/01/2012 Normal <sup>17</sup>Interpretive Data: Heparin Therapeutic Range: 57 - 92 Seconds [facility] HEMATOLOGY PT 14.5 12.0 - 14.7 02/01/2012 [address] [facility] INR 1.13 0.85 - 1.17 02/01/2012 Normal <sup>16</sup>Interpretive Data: RECOMMEN DED RANGES FOR PROTIME INR: 2.0-3.0 for most medical and surgical thromboembolic states. 2.5-3.5 for artificial heart valves and recurrent embolism. INR SHOULD BE USED ONLY FOR PATIENTS ON STABLE ANTICOAGULANT THERAPY. [facility] URINALYSIS UA Glucose Negat sue (01/31/2012 19:06:00) Negati ve 02/01/2012 Normal [facility] URINALYSIS UA Protein >=300 mg/dL *ABN* (01/31/2012 19:06:00) Negati ve 02/01/2012 ABN [facility] URINALYSIS UA Ketones Negat sue *NA* (01/31/2012 19:06:00) Negati ve 02/01/2012 NA [facility] URINALYSIS UA Bili Negat sue (01/31/2012 19:06:00) Negati ve 02/01/2012 Normal [facility] URINALYSIS UA Blood Large *ABN* (01/31/2012 19:06:00) Negati ve 02/01/2012 ABN [facility] URINALYSIS UA Nitrite Posit sue *ABN* (01/31/2012 19:06:00) Negati ve 02/01/2012 ABN [facility] URINALYSIS UA Urobilinogen 1.0 0.1 - 1.0 02/01/2012 Normal [facility] URINALYSIS UA Leuk Est Trace *ABN* (01/31/2012 19:06:00) Negati ve 02/01/2012 ABN [facility] URINALYSIS UA pH 6.5 5.0 - 8.0 02/01/2012 Normal [facility] URINALYSIS UA Color Red *ABN* (01/31/2012 19:06:00) Yellow 02/01/2012 ABN [facility] URINALYSIS UA Turbidity Blood y *ABN* (01/31/2012 19:06:00) Clear 02/01/2012 ABN [facility] URINALYSIS UA Spec Grav 1.010 <=1.030 02/01/2012 Normal [facility] URINALYSIS UA Bacteria Few / HPF (01/31/2012 19:06:00) None S een 02/01/2012 Normal [facility] URINALYSIS UA RBC Packe d *ABN* (01/31/2012 19:06:00) 0 - 2 02/01/2012 ABN [facility] URINALYSIS UA WBC 3-5 / HPF (01/31/2012 19:06:00) None S een 02/01/2012 Normal [facility] URINALYSIS UA Sq Epi Few / LPF (01/31/2012 19:06:00) Few 02/01/2012 Normal [facility] URINALYSIS Micro? Perfo rmed (01/31/2012 19:06:00) 02/01/2012 Normal [facility] BEDSIDE GLUCOSE TESTING Gluc POC Lif scn 164 70 - 99 01/29/2012 HI <sup>1</sup>Interpretive Data: Upper Reportable Limit: 200 mg/dL. [facility] BEDSIDE GLUCOSE TESTING Comment1 Notify ELLEN 01/29/2012 NA [facility] BEDSIDE GLUCOSE TESTING Comment1 Notify ELLEN 01/29/2012 NA [facility] BEDSIDE GLUCOSE TESTING Gluc POC Lif scn 191 70 - 99 01/29/2012 [place] <sup>2</sup>Interpretive Data: Upper Reportable Limit: 200 mg/dL. [facility] CHEMISTRY % Satur Fe 18 12 - 57 01/29/2012 Normal [facility] CHEMISTRY Iron 58 30 - 160 01/29/2012 Normal [facility] CHEMISTRY TIBC 327 228 - 428 01/29/2012 Normal [facility] CHEMISTRY UIBC 269 110 - 370 01/29/2012 Normal [facility] HEMATOLOGY Eosinophils # 0.5 0.0 - 0.5 01/29/2012 Normal [facility] HEMATOLOGY Basophils # 0.0 0.0 - 0.2 01/29/2012 Normal [facility] HEMATOLOGY Monocytes 8.8 2.0 - 12.0 01/29/2012 Normal [facility] HEMATOLOGY Eosinophils 6.0 0.0 - 4.0 01/29/2012 [facility] HEMATOLOGY Basophils 0.3 0.0 - 1.0 01/29/2012 Normal [facility] HEMATOLOGY Lymphocytes 8.6 20.0 - 40.0 01/29/2012 LOW [facility] HEMATOLOGY Segs-Bands # 6.4 1.5 - 8.1 01/29/2012 Normal [facility] HEMATOLOGY Monocytes # 0.7 0.0 - 0.8 01/29/2012 Normal [facility] HEMATOLOGY Lymphocytes # 0.7 1.0 - 5.5 01/29/2012 LOW [facility] HEMATOLOGY Segs 76.3 45.0 - 75.0 01/29/2012 [facility] HEMATOLOGY MPV 7.9 7.4 - 10.4 01/29/2012 Normal [facility] HEMATOLOGY Hct 26.8 36.0 - 48.0 01/29/2012 LOW [facility] HEMATOLOGY MCV 86.9 81.0 - 99.0 01/29/2012 Normal [facility] HEMATOLOGY MCH 28.3 27.0 - 31.0 01/29/2012 Normal [facility] HEMATOLOGY WBC 8.4 3.7 - 10.4 01/29/2012 Normal [facility] HEMATOLOGY Hgb 8.7 12.0 - 16.0 01/29/2012 LOW [facility] HEMATOLOGY RBC 3.08 4.20 - 5.40 01/29/2012 LOW [facility] HEMATOLOGY RDW 18.1 11.5 - 14.5 01/29/2012 [facility] HEMATOLOGY MCHC 32.5 32.0 - 36.0 01/29/2012 Normal [facility] HEMATOLOGY Platelet 282 133 - 450 01/29/2012 Normal [facility] BEDSIDE GLUCOSE TESTING Comment1 Notify GI/ 01/29/2012 NA [facility] BEDSIDE GLUCOSE TESTING Gluc POC Lif scn 131 70 - 99 01/29/2012 [place] <sup>3</sup>Interpretive Data: Upper Reportable Limit: 200 mg/dL. [facility] HEMATOLOGY Segs 74.0 45.0 - 75.0 01/27/2012 Normal [facility] HEMATOLOGY Lymphocytes 10.7 20.0 - 40.0 01/27/2012 LOW [facility] HEMATOLOGY Monocytes 8.7 2.0 - 12.0 01/27/2012 Normal [facility] HEMATOLOGY Basophils 0.3 0.0 - 1.0 01/27/2012 Normal [facility] HEMATOLOGY Eosinophils 6.3 0.0 - 4.0 01/27/2012 [facility] HEMATOLOGY Basophils # 0.0 0.0 - 0.2 01/27/2012 Normal [facility] HEMATOLOGY Eosinophils # 0.5 0.0 - 0.5 01/27/2012 Normal [facility] HEMATOLOGY Segs-Bands # 6.1 1.5 - 8.1 01/27/2012 Normal [facility] HEMATOLOGY Monocytes # 0.7 0.0 - 0.8 01/27/2012 Normal [facility] HEMATOLOGY Lymphocytes # 0.9 1.0 - 5.5 01/27/2012 LOW [facility] HEMATOLOGY RBC 3.17 4.20 - 5.40 01/27/2012 [facility] HEMATOLOGY Hgb 9.1 12.0 - 16.0 01/27/2012 [facility] HEMATOLOGY MCH 28.6 27.0 - 31.0 01/27/2012 Normal [facility] HEMATOLOGY MCV 87.4 81.0 - 99.0 01/27/2012 Normal [facility] HEMATOLOGY Hct 27.7 36.0 - 48.0 01/27/2012 [facility] HEMATOLOGY RDW 17.2 11.5 - 14.5 01/27/2012 [facility] HEMATOLOGY Platelet 289 133 - 450 01/27/2012 Normal [facility] HEMATOLOGY MCHC 32.7 32.0 - 36.0 01/27/2012 Normal [facility] HEMATOLOGY MPV 8.0 7.4 - 10.4 01/27/2012 Normal [facility] HEMATOLOGY WBC 8.3 3.7 - 10.4 01/27/2012 Normal [facility] CHEMISTRY Phosphorus 4.0 2.5 - 4.5 01/27/2012 Normal [facility] CHEMISTRY AGAP 17.6 10.0 - 20.0 01/27/2012 Normal [facility] CHEMISTRY Calcium Lvl 8.3 8.5 - 10.5 01/27/2012 LOW [facility] CHEMISTRY eGFR 13 01/27/2012 NA <sup>9</sup>Result Comment: Expected eGFR for >20 yr. age group: >=60 ml/min/1.73 sq m The eGFR calculation is not valid in or for persons < 18 years of age. From [employer] Kid[employer] Disease Education Program (NKDEP) [facility] CHEMISTRY Creatinine Lvl 3.8 0.5 - 1.4 01/27/2012 [facility] CHEMISTRY BUN 38 7 - 22 01/27/2012 [facility] CHEMISTRY Glucose Lvl 96 70 - 99 01/27/2012 Normal <sup>12</sup>Interpretive Data: Adult re ference range values reflect the clinical guidelines of the [place] [employer]. [facility] CHEMISTRY CO2 26 24 - 32 01/27/2012 Normal [facility] CHEMISTRY Potassium Lvl 4.6 3.5 - 5.1 01/27/2012 Normal [facility] CHEMISTRY Chloride Lvl 100 95 - 109 01/27/2012 Normal [facility] CHEMISTRY Sodium Lvl 139 135 - 145 01/27/2012 Normal [facility] IMMUNOLOGY Hep B Core Ab Negat sue *NA* (01/26/2012 17:45:00) Negati ve 01/26/2012 NA [facility] BEDSIDE GLUCOSE TESTING Comment2 Notify RN/MD 01/26/2012 [facility] BEDSIDE GLUCOSE TESTING Comment2 Notify RN/ 01/26/2012 [facility] BEDSIDE GLUCOSE TESTING Comment2 Notify RN/MD 01/26/2012 NA [facility] CHEMISTRY AGAP 14.4 10.0 - 20.0 01/24/2012 Normal [facility] CHEMISTRY Glucose Lvl 105 70 - 99 01/24/2012 [facility] <sup>13</sup>Interpretive Data: Adult re ference range values reflect the clinical guidelines of the [place] [employer]. [facility] CHEMISTRY BUN 30 7 - 22 01/24/2012 [facility] CHEMISTRY Sodium Lvl 139 135 - 145 01/24/2012 Normal [facility] CHEMISTRY Calcium Lvl 8.0 8.5 - 10.5 01/24/2012 LOW [facility] CHEMISTRY Chloride Lvl 98 95 - 109 01/24/2012 Normal [facility] CHEMISTRY Creatinine Lvl 3.7 0.5 - 1.4 01/24/2012 [facility] CHEMISTRY Potassium Lvl 4.4 3.5 - 5.1 01/24/2012 Normal [facility] CHEMISTRY CO2 31 24 - 32 01/24/2012 Normal [facility] HEMATOLOGY Basophils # 0.0 0.0 - 0.2 01/24/2012 Normal [facility] HEMATOLOGY Eosinophils # 0.4 0.0 - 0.5 01/24/2012 Normal [facility] HEMATOLOGY Lymphocytes # 0.8 1.0 - 5.5 01/24/2012 LOW [facility] HEMATOLOGY Monocytes # 0.8 0.0 - 0.8 01/24/2012 Normal [facility] HEMATOLOGY Eosinophils 6.2 0.0 - 4.0 01/24/2012 [facility] HEMATOLOGY Basophils 0.3 0.0 - 1.0 01/24/2012 Normal [facility] HEMATOLOGY Segs-Bands # 5.0 1.5 - 8.1 01/24/2012 Normal [facility] HEMATOLOGY Segs 70.5 45.0 - 75.0 01/24/2012 Normal [facility] HEMATOLOGY Lymphocytes 11.6 20.0 - 40.0 01/24/2012 [facility] HEMATOLOGY Monocytes 11.4 2.0 - 12.0 01/24/2012 Normal [facility] HEMATOLOGY RDW 17.1 11.5 - 14.5 01/24/2012 [facility] HEMATOLOGY Platelet 280 133 - 450 01/24/2012 Normal [facility] HEMATOLOGY MPV 7.5 7.4 - 10.4 01/24/2012 Normal [facility] HEMATOLOGY MCH 28.3 27.0 - 31.0 01/24/2012 Normal [facility] HEMATOLOGY MCHC 32.6 32.0 - 36.0 01/24/2012 Normal [facility] HEMATOLOGY Hgb 8.7 12.0 - 16.0 01/24/2012 [facility] HEMATOLOGY Hct 26.6 36.0 - 48.0 01/24/2012 [facility] HEMATOLOGY MCV 86.8 81.0 - 99.0 01/24/2012 Normal [facility] HEMATOLOGY WBC 7.0 3.7 - 10.4 01/24/2012 Normal [facility] HEMATOLOGY RBC 3.06 4.20 - 5.40 01/24/2012 [facility] BLOOD BANK RESULTS RBC product Product available 6 (01/23/2012 08:35:00) 01/23/2012 Normal <sup>6</sup>Result Comment: 01/23/2012 10:07 ELZBIETA Called to Arlyn at 01/23/2012 10:07. [facility] BLOOD BANK RESULTS ABO/Rh O POS 01/23/2012 Unknown [facility] BLOOD BANK RESULTS Antibody Scrn Negative (01/23/2012 08:35:00) 01/23/2012 Normal [facility] CHEMISTRY eGFR 12 01/23/2012 NA <sup>10</sup>Result Comment: Expected eGFR for >20 yr. age group: >=60 ml/min/1.73 sq m The eGFR calculation is not valid in or for persons < 18 years of age. From [employer] Kid[employer] Disease Education Program (NKDEP) [facility] CHEMISTRY AGAP 14.5 10.0 - 20.0 01/23/2012 Normal [facility] CHEMISTRY Sodium Lvl 138 135 - 145 01/23/2012 Normal [facility] CHEMISTRY CO2 29 24 - 32 01/23/2012 Normal [facility] CHEMISTRY Calcium Lvl 8.1 8.5 - 10.5 01/23/2012 LOW [facility] CHEMISTRY Potassium Lvl 4.5 3.5 - 5.1 01/23/2012 Normal [facility] CHEMISTRY Chloride Lvl 99 95 - 109 01/23/2012 Normal [facility] CHEMISTRY BUN 48 7 - 22 01/23/2012 [facility] CHEMISTRY Glucose Lvl 81 70 - 99 01/23/2012 Normal <sup>14</sup>Interpretive Data: Adult re ference range values reflect the clinical guidelines of the [place] [employer]. [facility] CHEMISTRY Creatinine Lvl 4.2 0.5 - 1.4 01/23/2012 [facility] URINALYSIS UA Bacteria Few / HPF (01/22/2012 09:25:00) None S een 01/22/2012 Normal [facility] URINALYSIS UA WBC 3-5 / HPF (01/22/2012 09:25:00) None S een 01/22/2012 Normal [facility] URINALYSIS UA RBC Packe d *ABN* (01/22/2012 09:25:00) 0 - 2 01/22/2012 ABN [facility] URINALYSIS UA Sq Epi Few / LPF (01/22/2012 09:25:00) Few 01/22/2012 Normal [facility] URINALYSIS UA Turbidity Turbi d *ABN* (01/22/2012 09:25:00) Clear 01/22/2012 ABN [facility] URINALYSIS UA Spec Grav 1.015 <=1.030 01/22/2012 Normal [facility] URINALYSIS UA Leuk Est Moder ate *ABN* (01/22/2012 09:25:00) Negati ve 01/22/2012 ABN [facility] URINALYSIS UA Urobilinogen 1.0 0.1 - 1.0 01/22/2012 Normal [facility] URINALYSIS UA Blood Large *ABN* (01/22/2012 09:25:00) Negati ve 01/22/2012 ABN [facility] URINALYSIS UA pH 7.5 5.0 - 8.0 01/22/2012 Normal [facility] URINALYSIS UA Protein >=300 mg/dL *ABN* (01/22/2012 09:25:00) Negati ve 01/22/2012 ABN [facility] URINALYSIS UA Glucose Negat sue (01/22/2012 09:25:00) Negati ve 01/22/2012 Normal [facility] URINALYSIS UA Ketones Trace *ABN* (01/22/2012 09:25:00) Negati ve 01/22/2012 ABN [facility] URINALYSIS UA Color Red *ABN* (01/22/2012 09:25:00) Yellow 01/22/2012 ABN [facility] URINALYSIS UA Nitrite Posit sue *ABN* (01/22/2012 09:25:00) Negati ve 01/22/2012 ABN [facility] URINALYSIS UA Bili Negat sue 4 (01/22/2012 09:25:00) Negati ve 01/22/2012 Normal <sup>4</sup>Result Comment: Confirmed by [employer]. [facility] Microbiology Culture: Urine 01/22/2012 [facility] CHEMISTRY Phosphorus 3.5 2.5 - 4.5 01/22/2012 Normal [facility] CHEMISTRY eGFR 13 01/22/2012 NA <sup>11</sup>Result Comment: Expected eGFR for >20 yr. age group: >=60 ml/min/1.73 sq m The eGFR calculation is not valid in or for persons < 18 years of age. From [employer] Kid[employer] Education Program (NKDEP) [facility] CHEMISTRY Magnesium Lvl 2.3 1.8 - 2.4 01/20/2012 Normal [facility] CHEMISTRY Phosphorus 5.3 2.5 - 4.5 01/20/2012 HI [facility] Microbiology Culture: Urine 01/19/2012 [facility] CHEMISTRY Ferritin Lvl 118 5 - 204 01/18/2012 Normal [facility] CHEMISTRY UIBC 328 110 - 370 01/18/2012 Normal [facility] CHEMISTRY % Satur Fe 8 12 - 57 01/18/2012 LOW [facility] CHEMISTRY Iron 30 30 - 160 01/18/2012 Normal [facility] CHEMISTRY TIBC 358 228 - 428 01/18/2012 Normal [facility] HEMATOLOGY Retic Auto 2.6 0.5 - 1.5 01/18/2012 HI [facility] CHEMISTRY U Creatinine 40.3 01/17/2012 NA <sup>15</sup>Interpretive Data: No estab lished reference ranges. [facility] CHEMISTRY U Sodium 36 01/17/2012 NA <sup>18</sup>Interpretive Data: No established reference ranges. [facility] URINALYSIS UA Urobilinogen 0.2 0.1 - 1.0 01/17/2012 Normal [facility] URINALYSIS UA Nitrite Negat sue (01/17/2012 14:40:00) Negati ve 01/17/2012 Normal [facility] URINALYSIS UA Leuk Est Trace *ABN* (01/17/2012 14:40:00) Negati ve 01/17/2012 ABN [facility] URINALYSIS UA WBC 6-10 /HPF *ABN* (01/17/2012 14:40:00) None S een 01/17/2012 ABN [facility] URINALYSIS UA Sq Epi Few / LPF (01/17/2012 14:40:00) Few 01/17/2012 Normal [facility] URINALYSIS UA RBC Packe d *ABN* (01/17/2012 14:40:00) 0 - 2 01/17/2012 ABN [facility] URINALYSIS UA Mucus Few / LPF (01/17/2012 14:40:00) None S een 01/17/2012 Normal [facility] URINALYSIS UA Bacteria Few / HPF (01/17/2012 14:40:00) None S een 01/17/2012 Normal [facility] URINALYSIS UA pH 6.5 5.0 - 8.0 01/17/2012 Normal [facility] URINALYSIS UA Turbidity Sligh t Cloudy (01/17/2012 14:40:00) Clear 01/17/2012 Normal [facility] URINALYSIS UA Spec Grav 1.010 <=1.030 01/17/2012 Normal [facility] URINALYSIS UA Color Yello w *NA* (01/17/2012 14:40:00) Yellow 01/17/2012 NA [facility] URINALYSIS UA Protein >=300 mg/dL *ABN* (01/17/2012 14:40:00) Negati ve 01/17/2012 ABN [facility] URINALYSIS UA Ketones Negat sue *NA* (01/17/2012 14:40:00) Negati ve 01/17/2012 NA [facility] URINALYSIS UA Glucose Negat sue (01/17/2012 14:40:00) Negati ve 01/17/2012 Normal [facility] URINALYSIS UA Blood Large *ABN* (01/17/2012 14:40:00) Negati ve 01/17/2012 ABN [facility] URINALYSIS UA Bili Negat sue *NA* (01/17/2012 14:40:00) Negati ve 01/17/2012 NA [facility] HEMATOLOGY Hypochrom Sligh t (01/17/2012 05:10:00) None S een 01/17/2012 Normal [facility] HEMATOLOGY Plt Morph Nicolasa l (01/17/2012 05:10:00) 01/17/2012 Normal [facility] BLOOD BANK RESULTS RBC product Product available 7 (01/15/2012 12:48:00) 01/15/2012 Normal <sup>7</sup>Result Comment: 01/16/2012 07:44 INGRIS called to esthela 01/16/2012 7:44 [facility] HEMATOLOGY Retic Auto 3.8 0.5 - 1.5 01/15/2012 HI [facility] BLOOD BANK RESULTS RBC product Product available 8 (01/14/2012 17:05:00) 01/14/2012 Normal <sup>8</sup>Result Comment: 01/14/2012 21:16 [id number] Called to VERENA at _01/14/2012 2030 by _TDH. [facility] BLOOD BANK RESULTS Antibody Scrn Negative (01/14/2012 10:15:00) 01/14/2012 Normal [facility] BLOOD BANK RESULTS ABO/Rh O POS 01/14/2012 Unknown [facility] HEMATOLOGY Plt Morph Nicolasa l (01/14/2012 06:20:00) 01/14/2012 Normal [facility] HEMATOLOGY Polychrom Sligh t (01/14/2012 06:20:00) None S een 01/14/2012 Normal [facility] HEMATOLOGY Hypochrom Sligh t (01/14/2012 06:20:00) None S een 01/14/2012 Normal [facility] HEMATOLOGY Retic Auto 4.3 0.5 - 1.5 01/14/2012 HI [facility] HEMATOLOGY Chrom Kat BM CYTOG ENETIC RESULT: 46,XX[20] INTERPRETATION: NORMAL FEMALE KARYOTYPE. TEST PERFORMED AT [facility], [address] [place], [place] [id number] 01/13/2012 NA <sup>19</sup>Interpretive Data: Test Per formed by [employer] [address] [address] [facility] [address] [facility] REFERENCE LAB RESULTS [facility] [place] [facility] FISH RESULT: NORMAL MDS PANEL. 45 01/13/2012 NA [facility] REFERENCE LAB RESULTS Test Name MDS profile 01/13/2012 Unknown [facility] CHEMISTRY Magnesium Lvl 2.1 1.8 - 2.4 01/13/2012 Normal [facility] IMMUNOLOGY Hep C Ab Negat sue *NA* (01/11/2012 04:52:00) Negati ve 01/11/2012 NA [facility] IMMUNOLOGY Hep A IgM Negat sue *NA* (01/11/2012 04:52:00) Negati ve 01/11/2012 NA [facility] IMMUNOLOGY Hep Bs Ag Negat sue *NA* (01/11/2012 04:52:00) Negati ve 01/11/2012 NA [facility] IMMUNOLOGY Hep B Core IgM Negat sue *NA* (01/11/2012 04:52:00) Negati ve 01/11/2012 NA [facility] CHEMISTRY CK MB Index 0.5 0.0 - 2.5 01/10/2012 Normal [facility] CHEMISTRY Troponin-I <0.02 0.00 - 0.40 01/10/2012 Normal [facility] CHEMISTRY CK MB 0.9 0.5 - 3.6 01/10/2012 Normal [facility] CHEMISTRY Total CK 177 12 - 191 01/10/2012 Normal [facility] HEMATOLOGY D-Dimer 3.68 01/10/2012 NA <sup>22</sup>Interpretive Data: In DIC, quantitative D-Dimer is generally greater than 0.66 ug/mL FEU. Values of quantitative D-Dimer less than 0.40 ug/mL FEU have been reported to be associated with a low probability of deep vein thrombosis/pulmonary embolism. This test alone should not be used to rule out DVT/PE. [facility] CHEMISTRY FiO2 Art 21.0 01/10/2012 NA [facility] CHEMISTRY PEEP Art 4.0 01/10/2012 NA [facility] CHEMISTRY Allens Art Positi ve (01/10/2012 16:12:00) 01/10/2012 Normal [facility] CHEMISTRY Mode Art Cpap (01/10/2012 16:12:00) 01/10/2012 Normal [facility] CHEMISTRY Temp Art 37.0 01/10/2012 NA [facility] CHEMISTRY Site Art Right Ra (01/10/2012 16:12:00) 01/10/2012 Normal [facility] CHEMISTRY pCO2 Art 41 35 - 45 01/10/2012 Normal [facility] CHEMISTRY pO2 Art 75 80 - 100 01/10/2012 LOW [facility] CHEMISTRY HCO3 Art 15 22 - 26 01/10/2012 LOW [facility] CHEMISTRY BE Art -11 -2-2 - 2 01/10/2012 LOW [facility] CHEMISTRY pH Art 7.21 7.35 - 7.45 01/10/2012 LOW [facility] CHEMISTRY O2 Sat Art 91.4 95.0 - 100.0 01/10/2012 [facility] BEDSIDE GLUCOSE TESTING Comment3 Notify RN/MD 01/10/2012 [facility] CHEMISTRY Ca Norm 0.93 1.16 - 1.30 01/09/2012 LOW [facility] CHEMISTRY Ca Ion 1.01 1.16 - 1.30 01/09/2012 [facility] CHEMISTRY Ca Ion mgdL 4.04 4.65 - 5.20 01/09/2012 [facility] CHEMISTRY Ca Norm mgdL 3.72 4.65 - 5.20 01/09/2012 [facility] CHEMISTRY B/C Ratio 14 6 - 25 01/09/2012 Normal [facility] CHEMISTRY A/G Ratio 0.6 0.7 - 1.6 01/09/2012 LOW [facility] CHEMISTRY Globulin 4.1 2.0 - 4.0 01/09/2012 [facility] CHEMISTRY AST 5 0 - 37 01/09/2012 Normal [facility] CHEMISTRY Alk Phos 92 39 - 136 01/09/2012 [facility] CHEMISTRY Albumin Lvl 2.3 3.5 - 5.0 01/09/2012 LOW [facility] CHEMISTRY Total Protein 6.4 6.4 - 8.4 01/09/2012 Normal [facility] CHEMISTRY ALT 9 0 - 65 01/09/2012 Normal [facility] CHEMISTRY Bili Total 0.4 0.2 - 1.3 01/09/2012 Normal [facility] CHEMISTRY Bili Total 0.3 0.2 - 1.3 01/08/2012 Normal [facility] CHEMISTRY Bili Direct 0.2 0.0 - 0.3 01/08/2012 Normal [facility] CHEMISTRY Bili Indirect 0.1 0.0 - 1.0 01/08/2012 Normal [facility] CHEMISTRY X-9-[id number] 19.5 1.0 - 2.3 01/08/2012 [facility] CHEMISTRY LDH 193 98 - 192 01/08/2012 [facility] CHEMISTRY Ferritin Lvl 55 5 - 204 01/08/2012 Normal [facility] CHEMISTRY Folate Lvl 11.9 >=3.0 01/08/2012 Normal [facility] CHEMISTRY Vitamin B12 Lvl 772 254 - 1320 01/08/2012 Normal [facility] CHEMISTRY % Satur Fe 12 12 - 57 01/08/2012 Normal [facility] CHEMISTRY UIBC 318 110 - 370 01/08/2012 Normal [facility] CHEMISTRY Iron 42 30 - 160 01/08/2012 Normal [facility] CHEMISTRY TIBC 360 228 - 428 01/08/2012 Normal [facility] IMMUNOLOGY Haptoglobin 348 16 - 200 01/08/2012 [facility] CHEMISTRY Erythropoietin 20.1 3.7 - 29.5 01/08/2012 Normal [facility] CHEMISTRY Magnesium Lvl 2.4 1.8 - 2.4 01/08/2012 Normal [facility] HEMATOLOGY RBC Morph Nicolasa l (01/08/2012 05:10:00) 01/08/2012 Normal [facility] HEMATOLOGY Plt Morph Nicolasa l (01/08/2012 05:10:00) 01/08/2012 Normal [facility] CHEMISTRY Erythropoietin 29.1 3.7 - 29.5 01/07/2012 Normal [facility] CHEMISTRY Total Protein 6.4 6.4 - 8.4 01/06/2012 Normal [facility] CHEMISTRY Bili Total 0.2 0.2 - 1.3 01/06/2012 Normal [facility] CHEMISTRY AST 7 0 - 37 01/06/2012 Normal [facility] CHEMISTRY Alk Phos 101 39 - 136 01/06/2012 Normal [facility] CHEMISTRY ALT 13 0 - 65 01/06/2012 Normal [facility] CHEMISTRY Albumin Lvl 2.4 3.5 - 5.0 01/06/2012 LOW [facility] CHEMISTRY A/G Ratio 0.6 0.7 - 1.6 01/06/2012 LOW [facility] CHEMISTRY B/C Ratio 15 6 - 25 01/06/2012 Normal [facility] CHEMISTRY Globulin 4.0 2.0 - 4.0 01/06/2012 Normal [facility] CHEMISTRY Erythropoietin 69.6 3.7 - 29.5 01/06/2012 HI [facility] BLOOD BANK RESULTS AB Int Anti-M 01/05/2012 Unknown [facility] BLOOD BANK RESULTS AB Int IgG Antibody 01/05/2012 Unknown [facility] HEMATOLOGY INR 1.16 0.85 - 1.17 01/05/2012 Normal <sup>20</sup>Interpretive Data: RECOMMEN DED RANGES FOR PROTIME INR: 2.0-3.0 for most medical and surgical thromboembolic states. 2.5-3.5 for artificial heart valves and recurrent embolism. INR SHOULD BE USED ONLY FOR PATIENTS ON STABLE ANTICOAGULANT THERAPY. [facility] HEMATOLOGY PT 14.8 12.0 - 14.7 01/05/2012 [facility] BLOOD BANK RESULTS ABO/Rh O POS 01/05/2012 Unknown [facility] BLOOD BANK RESULTS Antibody Scrn Positive 5 (01/05/2012 11:46:00) 01/05/2012 Normal <sup>5</sup>Result Comment: 01/05/2012 14:42 ELZBIETA "Significant Findings called to Jennifer at 01/05/2012 14:42 by [email or web address].Read Back OK." [facility] CHEMISTRY Total CK 109 12 - 191 01/05/2012 Normal [facility] URINALYSIS UA Vernon Yeast Few / HPF *ABN* (01/04/2012 13:00:00) None S een 01/04/2012 ABN [facility] URINALYSIS UA Amorph Ashly Few / HPF *ABN* (01/04/2012 13:00:00) None S een 01/04/2012 ABN [facility] URINALYSIS UA RBC 51-10 0 /HPF *ABN* (01/04/2012 13:00:00) 0 - 2 01/04/2012 ABN [facility] URINALYSIS UA Bacteria Few / HPF (01/04/2012 13:00:00) None S een 01/04/2012 Normal [facility] URINALYSIS UA Sq Epi Few / LPF (01/04/2012 13:00:00) Few 01/04/2012 Normal [facility] URINALYSIS UA WBC 3-5 / HPF (01/04/2012 13:00:00) None S een 01/04/2012 Normal [facility] URINALYSIS UA Nitrite Negat sue (01/04/2012 13:00:00) Negati ve 01/04/2012 Normal [facility] URINALYSIS UA Urobilinogen 0.2 0.1 - 1.0 01/04/2012 Normal [facility] URINALYSIS UA Leuk Est Negat sue (01/04/2012 13:00:00) Negati ve 01/04/2012 Normal [facility] URINALYSIS UA pH 6.0 5.0 - 8.0 01/04/2012 Normal [facility] URINALYSIS UA Spec Grav 1.025 <=1.030 01/04/2012 Normal [facility] URINALYSIS UA Turbidity Clear (01/04/2012 13:00:00) Clear 01/04/2012 Normal [facility] URINALYSIS UA Color Yello w *NA* (01/04/2012 13:00:00) Yellow 01/04/2012 NA [facility] URINALYSIS UA Blood Large *ABN* (01/04/2012 13:00:00) Negati ve 01/04/2012 ABN [facility] URINALYSIS UA Ketones Negat sue *NA* (01/04/2012 13:00:00) Negati ve 01/04/2012 NA [facility] URINALYSIS UA Bili Negat sue *NA* (01/04/2012 13:00:00) Negati ve 01/04/2012 NA [facility] URINALYSIS UA Protein >=300 mg/dL *ABN* (01/04/2012 13:00:00) Negati ve 01/04/2012 ABN [facility] URINALYSIS UA Glucose 100 m g/dL *ABN* (01/04/2012 13:00:00) Negati ve 01/04/2012 ABN [facility] Microbiology Culture: Blood 01/04/2012 [facility] Microbiology Culture: Blood 01/04/2012 [facility] CHEMISTRY ALT 16 0 - 65 01/04/2012 Normal [facility] CHEMISTRY A/G Ratio 0.7 0.7 - 1.6 01/04/2012 Normal [facility] CHEMISTRY Alk Phos 137 39 - 136 01/04/2012 HI [facility] CHEMISTRY Globulin 3.9 2.0 - 4.0 01/04/2012 Normal [facility] CHEMISTRY AST 9 0 - 37 01/04/2012 Normal [facility] CHEMISTRY Albumin Lvl 2.8 3.5 - 5.0 01/04/2012 LOW [facility] CHEMISTRY Total Protein 6.7 6.4 - 8.4 01/04/2012 Normal [facility] CHEMISTRY Bili Indirect 0.2 0.0 - 1.0 01/04/2012 Normal [facility] CHEMISTRY Bili Direct 0.1 0.0 - 0.3 01/04/2012 Normal [facility] IMMUNOLOGY GBM Ab IgG <1.0 NEG <1.0 01/04/2012 NA <sup>24</sup>Result Comment: Test Perfor med at: [employer] [facility] [address] [place] [address] Ariadne Johnson MD, PhD [facility] IMMUNOLOGY RF Qnt <10 0 - 20 01/04/2012 Normal [facility] CHEMISTRY Ferritin Lvl 19 5 - 204 01/03/2012 Normal [facility] CHEMISTRY Total CK 41 12 - 191 01/02/2012 Normal [facility] IMMUNOLOGY U TR[place] Pattern Not p rovided 01/02/2012 NA [facility] U [place] Interp Urine immunofixation electrophoresis reveals a polyclonal pattern of immunoglobulins. No monoclonal proteins are identified. Interpretation performed at [facility]. 01/02/2012 NA [facility] IMMUNOLOGY Tot Prot (UPE) 244 01/02/2012 NA [facility] Interp (UPE) Urine protein consists primarily of albumin. No monoclonal bands are identified. Interpretation performed at [facility]. 01/02/2012 [facility] IMMUNOLOGY Spec Type (UPE) ran u a x 50. 01/02/2012 NA [facility] HEMATOLOGY RBC Morph Nicolasa l (01/01/2012 06:44:00) 01/01/2012 Normal [facility] IMMUNOLOGY P-ANCA Negat sue (01/01/2012 06:44:00) Negati ve 01/01/2012 Normal [facility] IMMUNOLOGY C-ANCA Negat sue (01/01/2012 06:44:00) Negati ve 01/01/2012 Normal [facility] IMMUNOLOGY TRINIDAD Ser Interp Serum immunofixation electrophoresis reveals a polyclonal pattern of immunoglobulins. No monoclonal proteins are identified. Interpretation performed at [facility]. 01/01/2012 NA [facility] IMMUNOLOGY TR[place]IDAD Ser Pattern Not p rovided 01/01/2012 NA [facility] IMMUNOLOGY Tot Prot (SPE) 6.2 6.4 - 8.4 01/01/2012 LOW [facility] IMMUNOLOGY SPE Interp Total protein is decreased with a corresponding decrease in serum albumin. All globulin fractions are present in a normal distribution with minor nonspecific changes. No unequivocal monoclonal proteins are identified. Interpretation performed at [facility]. 01/01/2012 NA [facility] IMMUNOLOGY Albumin % 47.4 55.8 - 66.1 01/01/2012 LOW [facility] IMMUNOLOGY Albumin (SPE) 2.94 3.57 - 5.55 01/01/2012 LOW [facility] IMMUNOLOGY Gamma % 16.2 11.1 - 18.7 01/01/2012 Normal [facility] IMMUNOLOGY Beta % 15.2 7.8 - 13.7 01/01/2012 [facility] IMMUNOLOGY Alpha 2 % 16.0 7.0 - 11.9 01/01/2012 [facility] IMMUNOLOGY Alpha 1 % 5.2 2.8 - 4.9 01/01/2012 HI [facility] IMMUNOLOGY Gamma Glob 1.00 0.71 - 1.57 01/01/2012 Normal [facility] IMMUNOLOGY Beta Glob 0.94 0.50 - 1.15 01/01/2012 Normal [facility] IMMUNOLOGY Alpha 2 Glob 0.99 0.45 - 1.00 01/01/2012 Normal [facility] IMMUNOLOGY Alpha 1 Glob 0.32 0.18 - 0.41 01/01/2012 Normal [facility] IMMUNOLOGY C3 Complement 143 88 - 201 01/01/2012 Normal [facility] IMMUNOLOGY C4 Complement 39 16 - 47 01/01/2012 Normal [facility] IMMUNOLOGY VY Negat sue (01/01/2012 06:44:00) Negati ve 01/01/2012 Normal [facility] CHEMISTRY U Prot/Creat 1.6 12/31/2011 NA [facility] CHEMISTRY U Creatinine 106.6 12/31/2011 NA <sup>16</sup>Interpretive Data: No estab lished reference ranges. [facility] CHEMISTRY U Protein 166.8 12/31/2011 NA <sup>17</sup>Interpretive Data: No estab lished reference ranges. [facility] IMMUNOLOGY Hep C Ab Negat sue *NA* (12/31/2011 09:45:00) Negati ve 12/31/2011 NA [facility] IMMUNOLOGY Hep Bs Ag Negat sue *NA* (12/31/2011 09:45:00) Negati ve 12/31/2011 NA [facility] IMMUNOLOGY HIV 1/2 Ab Negat sue *NA* (12/31/2011 09:45:00) Negati ve 12/31/[address] [facility] INR 0.97 0.85 - 1.17 12/31/2011 Normal <sup>21</sup>Interpretive Data: RECOMMEN DED RANGES FOR PROTIME INR: 2.0-3.0 for most medical and surgical thromboembolic states. 2.5-3.5 for artificial heart valves and recurrent embolism. INR SHOULD BE USED ONLY FOR PATIENTS ON STABLE ANTICOAGULANT THERAPY. [facility] PTT 35.6 22.9 - 35.8 12/31/2011 Normal <sup>23</sup>Interpretive Data: Heparin Therapeutic Range: 57 - [address] [facility] PT 12.9 12.0 - 14.7 12/31/2011 Normal [facility] Pathology Reports No Data Provided for This Section Diagnostic Reports Report Value Date Source Neck wo contrast MRA Patient N jim: TAI GRANT : 1960; Age: 57 years y/o Female MR: [id number] Study: Neck wo contrast MRA 11/27/2017 8:22 AM LINES [employer]ER Ordering Physician: Tiffanie Saenz MD Clinical Indication: - R29.818 Other symptoms and signs involving the nervous system; migraines. Weakness both arms and legs. Comparison: None Technique: Magnetic resonance angiography of the neck was performed without gadolinium contrast with time of flight technique. 3-D maximum intensity projection images were obtained. FINDINGS: No hemodynamically significant stenosis identified to the visualized portions of either carotid or vertebral artery in the neck. Medial position to the common carotid arteries noted bilaterally. Any reported ICA stenoses directly reference the distal internal carotid diameter as the denominator for stenosis measurement. (NASCET criteria) IMPRESSION: Unremarkable MRA of the neck. SL: [id number] 11/27/2017 [facility] Brain wo contrast MRA Patient Name: TAI GRANT : 1960; Age: 57 years y/o Female MR: [id number] Study: Brain wo contrast MRA 11/27/2017 8:21 AM [employer] Ordering Physician: Tiffanie Saenz MD Clinical Indication: - R29.818 Other symptoms and signs involving the nervous system; Comparison: None Technique: Magnetic resonance angiography of the [place] of [place] was performed without contrast. 3D reconstructed images were created. FINDINGS: Flow is not seen within either posterior communicating artery. No evidence for intracranial stenosis or intracranial aneurysm. SL: [id number] 11/27/2017 [facility] Abdomen 2 views DX ABDOMEN, 1 VIEW HISTORY: Abdominal pain, acute; right lower quadrant pain COMPARISON: 01/11/2015 FINDINGS: Bowel gas pattern is nonobstructive. Embolization coils in the right abdomen again noted. No acute osseous abnormality. SL: [id number] 06/08/2016 [facility] Abdomen/Pelvis wo IV contrast CT Patient Name: TAI GRANT : 1960; Age: 56 years Female MR: [id number] Study: Abdomen/Pelvis wo IV contrast CT 06/05/2016 7:16 AM CDT Clinical Indication: Diarrhea. LLq abd pain, r/o diverticulitis. pt arrives via EMS for Left arm where her fistula site is. pt also complains of L chest and L neck pain since am. also complains of nausea and vomiting as well. last received dialysis on Wednesday. no apparent distress at triage. COMPARISON: March 2015 multiple scans. 01/11/2015. TECHNIQUE: Helical imaging was performed diaphragm through the symphysis with multiplanar reformations obtained without IV contrast. FINDINGS: LOWER CHEST: The lung bases are clear. Cardiomegaly and coronary calcifications. Bibasilar atelectasis. ABDOMEN: No free air. Postoperative change to the stomach. LIVER: Enlarged. BILIARY TREE: Normal. GALLBLADDER: Surgically absent. PANCREAS: Normal. SPLEEN: Enlarged. ADRENALS: Normal. KIDNEYS: No hydronephrosis or renal stones. Atrophic kidneys. Right kidney metallic lolis. Left renal stones numbering at least 5, measuring on the order of 4 mm, 147 Hounsfield units. PELVIS: No ureterolithiasis. The bladder is normally distended. Small hiatal hernia. BOWEL: No small bowel obstruction. Sigmoid diverticulosis. Mild mid perisigmoid inflammation. PERITONEUM: No free intraperitoneal fluid. RETROPERITONEUM: No aortic aneurysm. MUSCULOSKELETAL: The skeleton is intact. IMPRESSION: 1. Mild sigmoid diverticulitis. 2. Hepatosplenomegaly. 3. Cardiomegaly, coronary artery calcif ications. 4. Left nephrolithiasis. 5. Nonvisualization of the appendix. If there are symptoms referrable to the appendix, a follow-up computed tomography scan of the pelvis with IV and oral contrast is recommended in 48 to 72 hours. 6. Postcholecystectomy. 7. Post bariatric surgery. SL: [id number] 06/05/2016 [facility] Chest 1view DX Chest 1view DX CLINICAL HISTORY:Chest pain COMPARISON: 10/10/2014 FINDINGS/IMPRESSION: Limited AP portable study. Support Lines/Devices: none Lungs: Mild increase in reticular opacities is noted in the lower lungs bilaterally. This may reflect mild degree of vascular congestion and/or interstitial scarring. No consolidation or any significant effusion. Cardiomediastinum: Cardiomediastinal silhouette is stable. Bone and Soft Tissues: No significant abnormality is evident. SL: [id number] 06/05/2016 [facility] Hip contrast MRI MR RIGHT H IP WITHOUT CONTRAST HISTORY: Pain and swelling, evaluate for septic arthritis, hip pain for 2 days COMPARISON: CT right hip dated 04/15/2015 FINDINGS: There is minimal inflammatory signal within the distal iliopsoas myotendinous insertion on the lesser trochanter suggestive of grade 1 myotendinous strain. No tendon tear is seen. No other soft tissue inflammatory signal is seen about the right hip. No significant joint effusion. No abnormal marrow signal to suggest bone contusion, fracture, or osteomyelitis. No soft tissue fluid collection to suggest abscess. No soft tissue mass. No significant degenerative change of the right hip is identified. The cartilage is grossly preserved. IMPRESSION: 1. Minimal soft tissue inflammatory sign al within the distal iliopsoas myotendinous insertion on the lesser trochanter most compatible with grade 1 myotendinous strain. 2. Normal right hip articulation. SL: 04/16/2015 [facility] Hip contrast CT CT scan of the right hip without contrast: Exam reason: Pain in limb. Multiple computerized axial tomograms of the right hip were obtained without contrast. Sagittal and coronal reconstruction images were obtained. Small right hip joint fluid collection is noted. The right hip joint space is well- maintained. There is no acute fracture, dislocation or osteolysis noted. Vascular calcification is noted. Nonspecific, nonenlarged benign appearing inguinal lymph nodes are noted bilaterally. The uterus is unremarkable. Minimal urinary bladder wall thickening is noted accentuated by incomplete distention. Laxity of the ventral lateral aspect of the ventral abdominal wall at the lower half of the pelvis is noted. Mild constipation. IMPRESSION: 1.Small right hip joint fluid collection is noted. SL:12 04/15/2015 [facility] Spine lumbar 2 or 3 views DX L umbosacral spine, 3 view: Exam reason: See Clinic IndicationPain, Lumbar region AP, lateral and coned lateral views of the lumbar spine were obtained. Enteric contrast partially obscured the bony structures. Anastomotic staple line left upper quadrant. Embolic coils are noted projected over the right renal hilum. Vascular calcification is noted at the pelvis. Straightening of the usual lumbar lordosis is noted. Narrowing of the disc spaces at L1-L2 and L2-L3 is noted consistent with degenerative disc disease. The irregularity of the endplates opposing the disc spaces is noted similar to sagittal reconstruction images on the previous CT exam, 01/11/2015. Lumbar vertebral body heights and interspaces are otherwise well-maintained. There is no acute fracture, dislocation or spondylolisthesis noted. SL:04/15/2015 [facility] Ext Lower Arterial Doppler unilat US EXAM: US RIGHT LOWER EXTREMITY ARTERIAL DOPPLER DATE:Apr 15, 2015 04:21:30 PM INDICATION: Pain, Limb COMPARISON: None. TECHNIQUE: Multiplanar grayscale, color Doppler and spectral Doppler ultrasound images of the right LE arteries were obtained. FINDINGS: No significant Atherosclerotic plaque is seen without any focal areas narrowing or significantly increased velocities to suggest hemodynamically significant stenosis>]. Right Extremity Waveforms: Common Femoral Artery: 108 cm/s triphasic Superficial Femoral Artery: (Proximal to distal) 98, 74, 70 cm/s triphasic, biphasic, biphasic Popliteal Artery: 55 cm/s biphasic Posterior Tibialis Artery: 50 cm/s biphasic Dorsalis Pedis Artery: 78 cm/s biphasic IMPRESSION: Patent arteries of the right lower extremity without significant atheromatous plaque or hemodynamically significant stenosis. SL: 04/15/2015 [facility] Abdomen/Pelvis w IV contrast CT EXAMINATION: CT of the abdomen and pelvis with contrast HISTORY: Abdominal pain, acute COMPARISON: CT of abdomen and pelvis from 01/11/2015 DLP: [id number] TECHNIQUE: Multiple transaxial images through the abdomen and pelvis were acquired following administration of intravenous contrast material. Oral contrast was administered. Multiplanar reformatted images were performed. FINDINGS: Limited views of the lung bases show mild bibasilar scarring. Hepatosplenomegaly is present. The patient is status post cholecystectomy. No intrahepatic or extrahepatic biliary duct dilatation is seen. The pancreas and adrenal glands are unremarkable. Atrophy of the kidneys is seen. Calcified splenic granuloma is noted. The bladder is well-distended. Uterus and ovaries are unremarkable. Postoperative changes of gastric sleeve procedure are seen. The appendix is not well-visualized. Scattered sigmoid diverticula are seen without inflammatory change to suggest acute diverticulitis. No intraperitoneal free air, free fluid, or pathologic adenopathy is seen. No acute osseous abnormality is seen. IMPRESSION: 1. No acute intra-abdominal/pelvic abnor mality. 2. Hepatosplenomegaly. SL: 04/15/2015 [facility] Abdomen wo IV contrast CT EXAM INATION: CT of the abdomen without contrast HISTORY: abd distention COMPARISON: CT of abdomen and pelvis from 10/06/2014 DLP: [id number] TECHNIQUE: Multiple transaxial images through the abdomen were acquired without administration of intravenous contrast. Oral contrast was administered. Multiplanar reformatted images were performed. FINDINGS: The lung bases are clear bilaterally. The patient is status post cholecystectomy. Hepatosplenomegaly is present. The pancreas, adrenal glands, and kidneys are grossly unremarkable. Metallic densities in the right renal hilum are again noted. Postoperative changes of gastric sleeve procedure are seen. The remaining visualized hollow viscera are unremarkable. The appendix is not clearly visualized. No intraperitoneal free air, free fluid, or pathologic adenopathy is seen. The superficial soft tissues are unremarkable. No suspicious osseous lesions are noted. IMPRESSION: 1. No acute intra-abdominal abnormality and no evidence of bowel obstruction. 2. Hepatosplenomegaly. SL: 01/11/2015 [facility] Abdomen 2 views DX Examination : Abdomen, 3 views History: Abdominal distention Comparison: None. Findings: Multiple views of the abdomen show a nonobstructive bowel gas pattern. No intraperitoneal free air is seen. Embolization coils in the right upper quadrant are seen. Chain sutures in the left upper quadrant are also noted. Degenerative disc disease of the lumbar spine is seen. IMPRESSION: Nonobstructive bowel gas pattern. SL: 16 01/11/2015 [facility] HVI VAS Arterial Extracranial Doppler Bi Indications endstage renal disease; carotid bruit.. IMPRESSION: 1. There is evidence of mild atheroscler otic disease of bilateral carotid bulbs and internal carotid arteries consistent with less than 50% stenosis. COMMENT: Bilateral grayscale, color-flow, and Doppler examination of the extracranial carotid arterial system was performed here. No comparison studies are available for review. On the right, mild atherosclerotic plaque is noted. The internal carotid to common carotid peak systolic velocity ratio is 1.00. The peak systolic velocity in the internal carotid artery is 102 cm/sec. This is consistent with less than 50% stenosis. On the left, mild atherosclerotic plaque is noted. The internal carotid to common carotid peak systolic velocity ratio is 0.85. The peak systolic velocity in the internal carotid artery is 87.1 cm/sec. This is consistent with less than 50% stenosis. Bilateral external carotid arteries are patent. Bilateral antegrade flow was noted in the vertebral arteries. 11/15/2014 [facility] Upper GI w Barium swallow DX P ROCEDURE: Stomach UGI and Esophagus Ba swallow REASON FOR EXAM: History of gastric surgery CLINICAL INFORMATION Abdominal Pain COMPARISON: CAT scan 10/06/2014. The esophagus is dilated. Tertiary waves are noted with the presence of a 3 to 4 cm hiatal hernia. There is mild esophageal mucosal irregularity. Reflux to the upper esophagus with mild provocative maneuvers. Examination of the stomach demonstrates prior gastric sleeve procedure as the stomach has an elongated tubular appearance. The oral and pharyngeal phases swallowing are normal without aspiration, penetration or nasal regurgitation. IMPRESSION: 1. Dilated esophagus, tertiary contracti ons without delay in passage of contrast, mucosal irregularity. Reflux to the upper esophagus, hiatal hernia. Correlation with a recent endoscopy is recommended. 2. Prior gastric sleeve procedure as the stomach has an elongated tubular appearance. These findings are communicated to the patient's nurse Peggy at 4:22 p.m. Fluoro time: 2 minutes. SL: 13 10/12/2014 [facility] 1view Examination: Chest x-ray, single view History: Abnormal chest sounds Comparison: 10/08/2014 Findings: Right internal jugular central line is stable. Cardiac silhouette is normal in size. Diffuse perihilar interstitial opacities are stable, concerning for mild pulmonary edema. There is no pleural effusion or pneumothorax. The osseous structures are without focal abnormality. IMPRESSION: Stable exam of the chest. SL: 16 10/10/2014 [facility] Brain wo contrast CT CT BRAIN WITHOUT CONTRAST: TECHNIQUE: Axial images were done without contrast. FINDINGS: There is no significant parenchymal abnormality, hemorrhage, infarct, mass, or shift. The ventricles and extra-axial spaces are within normal limits. There is no significant osseous abnormality. There is no significant change compared to 10/05/2014. IMPRESSION: No acute CT abnormality of the brain. SL:13 10/08/2014 [facility] Chest 1view HISTORY: Line plac ement. One view chest. Comparison 10/08/2014 at 0147 hours. New right jugular central venous catheter tip is in the SVC. There is no pneumothorax. Cardiomegaly with pulmonary congestion, as before. No pleural effusion. SL:13 10/08/2014 [facility] Chest 1view Chest one view: Exam reason: Chest pain See Clinic Indication Inspiratory effort is intervally improved; however, there is interval worsening left parahilar consolidative opacity and worsening pulmonary vascular congestion present bilaterally. Otherwise, allowing for differences in technique and inspiratory effort, there is no significant interval change from the previous exam, 10/05/2014. Detail is limited by patient body habitus. SL:12 10/08/2014 [facility] Abdomen/Pelvis wo IV contrast CT CT ABDOMEN WITHOUT CONTRAST; CT PELVIS WITHOUT CONTRAST: TECHNIQUE: Both exams were done without contrast. FINDINGS: The liver and spleen are mildly enlarged. No focal abnormalities are seen. The pancreas, kidneys and adrenal glands show no acute abnormalities. Metallic coils in the right renal hilum are noted. There is no significant abnormality the GI tract. The uterus and adnexal regions are unremarkable. There is no change compared to 09/21/2014. IMPRESSION: No acute CT abnormalities in the abdomen or pelvis. SL:13 10/06/2014 [facility] Abdomen 2 views Examination: A bdomen, 2 views History: Abdominal pain, chronic Comparison: Acute abdominal series from 09/19/2014 Findings: Multiple views of the abdomen show a nonobstructive bowel gas pattern. No intraperitoneal free air is seen. Embolization coils and surgical clips in the right abdomen are seen. Osseous structures are stable. IMPRESSION: Nonobstructive bowel gas pattern. SL: 16 10/05/2014 [facility] Brain wo contrast CT Examinati on: CT scan of the brain without contrast. HISTORY: Syncope COMPARISON: CT of the brain from 09/19/2014 DLP: 575.51 TECHNIQUE: Multiple axial CT images of the brain were obtained without the administration of intravenous contrast. FINDINGS: The brain parenchyma is normal in volume and morphology. No acute intracranial hemorrhage, mass effect, midline shift, or hydrocephalus is seen. There are no extra-axial fluid collections. The visualized paranasal sinuses and mastoid air cells are well-aerated. The optic globes and retrobulbar soft tissues are unremarkable. IMPRESSION: No acute intracranial abnormality. SL: 16 10/05/2014 [facility] Chest 1view HISTORY: Syncope. One view portable chest. Comparison 09/19/2014. Poor inspiration accentuates the cardiac silhouette and vascular markings. The cardiac silhouette is however enlarged. A component of mild vascular congestion may also be considered. There is no other acute infiltrate or pleural effusion. SL:13 10/05/2014 [facility] Brain wo contrast CT CT BRAIN WITHOUT CONTRAST INDICATION: Headache with dizziness COMPARISON: CT brain 08/01/2014 FINDINGS: There is no evidence of acute vascular insults, space occupying lesions, hemorrhage, hydrocephalus, midline shift, or extra-axial collections. The calvarium is intact. IMPRESSION: No acute intracranial abnormalities are visualized. SL: 16 09/19/2014 [facility] Abdomen/Pelvis w IV contrast CT CT CHEST, ABDOMEN, AND PELVIS WITH CONTRAST INDICATION: Chest pain, evaluate for dissection COMPARISON: Chest radiograph 11/29/2012, CT abdomen/pelvis 08/05/2013 FINDINGS: Image detail is degraded by motion artifacts. CHEST: No pulmonary emboli are visualized. The thoracic aorta is normal in caliber, without evidence of dissection. The heart is enlarged. There is mild left basilar atelectasis or scarring. There is otherwise no consolidation, pleural effusion, or pneumothorax. The trachea and major bronchi are grossly clear. No suspicious lymphadenopathy is identified. The esophagus is dilated and tapers at the gastroesophageal junction, containing air and oral contrast. ABDOMEN: Cholecystectomy clips are in place. Surgical artifact is seen at the right renal hilum. The kidneys are otherwise unremarkable. The liver, spleen, pancreas, and adrenal glands appear normal. There are postoperative changes of the stomach. There is mild colonic diverticulosis. The appendix is not visible; however, no inflammatory changes are seen in the right lower quadrant of the abdomen. No free fluid or abnormal fluid collections are seen. No abdominal lymphadenopathy is identified. The abdominal aorta is grossly patent and normal in caliber, without evidence of dissection. PELVIS: The bladder, uterus, and adnexa are unremarkable. No pelvic mass or lymphadenopathy are identified. BONES: No acute bony abnormalities are seen. IMPRESSION: 1. No evidence of pulmonary embolism or aortic dissection. 2. Cardiomegaly. 3. The appearance of the esophagus sugge sts achalasia. 4. Mild diverticulosis. SL: 16 09/19/2014 [facility] Chest w contrast CT CT CHEST, ABDOMEN, AND PELVIS WITH CONTRAST INDICATION: Chest pain, evaluate for dissection COMPARISON: Chest radiograph 11/29/2012, CT abdomen/pelvis 08/05/2013 FINDINGS: Image detail is degraded by motion artifacts. CHEST: No pulmonary emboli are visualized. The thoracic aorta is normal in caliber, without evidence of dissection. The heart is enlarged. There is mild left basilar atelectasis or scarring. There is otherwise no consolidation, pleural effusion, or pneumothorax. The trachea and major bronchi are grossly clear. No suspicious lymphadenopathy is identified. The esophagus is dilated and tapers at the gastroesophageal junction, containing air and oral contrast. ABDOMEN: Cholecystectomy clips are in place. Surgical artifact is seen at the right renal hilum. The kidneys are otherwise unremarkable. The liver, spleen, pancreas, and adrenal glands appear normal. There are postoperative changes of the stomach. There is mild colonic diverticulosis. The appendix is not visible; however, no inflammatory changes are seen in the right lower quadrant of the abdomen. No free fluid or abnormal fluid collections are seen. No abdominal lymphadenopathy is identified. The abdominal aorta is grossly patent and normal in caliber, without evidence of dissection. PELVIS: The bladder, uterus, and adnexa are unremarkable. No pelvic mass or lymphadenopathy are identified. BONES: No acute bony abnormalities are seen. IMPRESSION: 1. No evidence of pulmonary embolism or aortic dissection. 2. Cardiomegaly. 3. The appearance of the esophagus sugge sts achalasia. 4. Mild diverticulosis. SL: 16 09/19/2014 [facility] Abdomen acute series w chest 1 view DX CHEST, ONE VIEW AND ABDOMEN, TWO VIEWS HISTORY: Abdominal pain, acute. COMPARISON: Chest radiography dated 09/03/2014 FINDINGS: The lungs are clear. No pleural effusion. No pneumothorax. Heart size normal. No free air collects under either hemidiaphragm. Bowel gas pattern is nonobstructive. Oral contrast is noted in the stomach and several normal-appearing small bowel loops. Changes of gastric sleeve are identified. Embolization coil is project over the right kidney. Osseous structures are unremarkable. SL: 13 09/19/2014 [facility] Abdomen acute series w chest 1 view DX Abdomen series with one view chest, 3 views: COMPARISON: CT abdomen 11/20/2013 FINDINGS: The bowel gas pattern is nonobstructive. No abnormal calcifications or masses are visualized. Surgical clips in the right upper abdomen indicate a previous cholecystectomy. There are vascular coils projected over the midportion of right kidney. The one view chest reveals clear lungs. No consolidation or any significant effusion. No free air is noted underneath the hemidiaphragms. IMPRESSION: No significant acute abnormality is noted on the abdomen series. SL:13 09/03/2014 [facility] Brain/Neck CTA CTA HEAD AND NE CK CLINICAL INFORMATION: Weakness. Syncope. COMPARISON: CT head of this date. TECHNIQUE: Contiguous thin section images of the neck and brain were obtained utilizing a multidetector scanner after uneventful administration of nonionic iodinated contrast medium. Surface rendered images generated on an independent workstation and computer reformatted sagittal and coronal images are provided. Omnipaque contrast was injected intravenously. Postprocessing 3-D reformatting and reconstruction images were also obtained. FINDINGS: Motion artifact degrades image quality. NECK CTA: Nonspecific prominent nodes are present within the superior mediastinum. Nonspecific distended fluid-filled esophagus. Aortic arch: The great vessels originate from the aortic arch in the standard configuration. No origin stenosis is identified. The vertebral arteries are patent bilaterally. Carotid arteries: The cervical common carotid arteries and cervical internal carotid arteries have a normal course caliber and contour. [There are areas of atherosclerotic calcification at the carotid bifurcations.] About 60% stenosis of the proximal right internal carotid artery. No flow limiting left internal carotid artery stenosis detected. Vertebral arteries: The vertebral arteries are co-dominant. They have a normal course, caliber and contour. BRAIN CTA: the anterior and posterior circulations have a normal appearance and a standard branching pattern. Bilateral P-comm are not visualized. No evidence of branch occlusion, vascular injury, or aneurysm is identified. Venous opacification in the head and neck is normal. Alignment of the cervical spine is normal. The appearance of the craniocervical junction and cervicothoracic junction is unremarkable. No definite fracture or subluxation is evident. IMPRESSION: 1. Limited study as above. Atherosclerot ic calcification of the carotid bifurcations. About 60% stenosis of the proximal right internal carotid artery. No flow limiting left carotid stenosis. 2. No definite cerebral aneurysm detecte d. Note: 'Any reported ICA stenoses reference the distal internal carotid diameter as the denominator for stenosis measurement.' 08/01/2014 [facility] Chest 2 views NAME: TAI GRANT : 1960 SEX: F Ordering Physician: Sung Britton Chest 2 views : Aug 01, 2014 07:05:00 AM. CLINICAL INDICATION: Chest pain. Comparison Examination: 11/23/2013. FINDINGS: Mild enlargement of cardiac silhouette and mediastinal structures are stable. No focal infiltrate identified within the lungs, no edema, no pleural effusions and no pneumothorax. Degenerative changes seen about the thoracic spine. SL: 12 08/01/2014 [facility] Brain wo contrast CT NAME: TAI MCCLAIN : 1960 SEX: F Ordering Physician: Sung Britton Brain wo contrast CT : Aug 01, 2014 06:49:00 AM. CLINICAL INDICATION: Syncope. Comparison Examination: 07/01/2012. FINDINGS: Ventricles and sulci are within normal limits for the patient's age. No evidence for subarachnoid, intraparenchymal or intraventricular hemorrhage. No extra- axial fluid collection, mass-effect or shift. No mass lesion identified. No evidence for an acute infarction. Bone windows were obtained and no bony fracture was identified. CONCLUSIONS: Negative head CT without contrast. SL: 12 08/01/2014 [facility] Chest 1view HISTORY: Fever. One view portable chest. Comparison 11/11/2013. Pulmonary vasculature appears mildly engorged. There is mild atelectasis in the lung bases. Cardiomegaly is present. There is no other specific pulmonary infiltrate. No pleural effusion. Right jugular central venous catheter is present with the tip in the SVC. IMPRESSION: Pulmonary vasculature appears mildly engorged. Consider a component of volume overload or CHF. Mild basilar atelectatic changes. Central line in satisfactory position SL:13 11/23/2013 [facility] Abdomen wo IV contrast CT HIST ORY: Rule out adrenal mass. CT abdomen without contrast. Comparison 08/05/2013. There has been previous gastric surgery with the gastric suture line present. Prior cholecystectomy. Arterial vascular occlusion coils are present in the right renal hilum. Numerous subcentimeter low-density lesions within the liver appear similar to that noted on previous exam. Liver is less well evaluated today without IV contrast. The pancreas, kidneys, adrenal glands demonstrate no significant noncontrast abnormality. The spleen is large measuring 16 cm craniocaudal x 8.6 cm transverse. This is essentially stable from previous. No discrete splenic lesion is noted. Nonenlarged periaortic lymph nodes are present similar to previous. There is no bowel obstruction or pathologic distention. A small umbilical hernia, 2 cm containing fat, incompletely evaluated. Anasarca changes within the subcutaneous flanks is noted bilaterally. There are atelectatic and fibrotic changes in the left lung base. No pleural effusion. IMPRESSION: No adrenal mass or lesion is demonstrated. Nonspecific splenomegaly. Mild anasarca changes within the flanks. SL:13 11/20/2013 [facility] Chest 1view PROCEDURE: Chest 1view REASON FOR EXAM: See Clinic Indication CLINICAL INFORMATION Line Placement COMPARISON: 10/2013. July 2013. 06/2013. 12/2012. The right IJ line tip is in the distal superior vena cava. The heart is mildly enlarged. There is left lower lobe atelectasis and small effusion versus atelectasis. No pneumothorax is noted. There is mild thoracic spondylosis. Overlying leads limit detail. SL: 14 11/11/2013 [facility] Chest 1view PROCEDURE: Chest 1view REASON FOR EXAM: See Clinic Indication CLINICAL INFORMATION Coughing COMPARISON: 07/2013. 06/2013. 12/2012 multiple x-rays. The patient's chin limits assessment of the thoracic inlet. The lungs are hyperinflated. There are no infiltrates, effusions or pneumothorax. Moderate thoracic spondylosis is noted. The heart is mildly enlarged. SL: 14 11/10/2013 [facility] Abdomen 2 views ABDOMINAL RADI OGRAPH 2 VIEWS INDICATION: Abdominal pain, evaluate gastric sleeve COMPARISON: Abdominal radiograph 08/03/2013 IMPRESSION: There is prompt passage of contrast from the esophagus into the stomach. Elongated tubular appearance of the stomach is consistent with patient's history of a gastric sleeve. There is no evidence for obstruction. No leakage of contrast is identified outside the lumen of the stomach. Cholecystectomy clips are in place. Vascular coils are noted in the region of the right kidney. SL: 13 08/05/2013 [facility] Abdomen/Pelvis w contrast CT C T ABDOMEN AND PELVIS WITH CONTRAST INDICATION: Abdominal pain COMPARISON: CT abdomen/pelvis 07/24/2013 FINDINGS: ABDOMEN: The visible lung bases are clear. Cholecystectomy clips are in place. Small hypodense lesions scattered throughout the liver are grossly stable. Embolization coils are noted in the region of the right renal hilum. The kidneys are otherwise unremarkable. The spleen, pancreas, and adrenal glands appear normal. There are postoperative changes of the stomach. Although incompletely distended, the wall of the large bowel appears diffusely thickened, particularly the transverse segment. No free fluid or abnormal fluid collections are seen. No abdominal lymphadenopathy is identified. PELVIS: The bladder, uterus, and adnexa are unremarkable. No pelvic mass or lymphadenopathy are identified. BONES: No acute bony abnormalities are seen. IMPRESSION: 1. Diffuse thickening of the wall of the large bowel suggests colitis, infectious or inflammatory. 2. Stable indeterminant scattered hypode nse lesions of the liver. If clinically indicated, MRI of the abdomen, with and without contrast, may be beneficial for further characterization. SL: 08/05/2013 [facility] Abdomen acute series comp w chest 1 view Chest, one view and abdomen, 2 views. HISTORY: Acute abdominal pain. COMPARISON: Chest radiography dated 07/24/2013. FINDINGS: The lungs are clear. No pleural effusion or pneumothorax. Heart size normal. No free air collects under either hemidiaphragm. The gas pattern is normal. Postoperative changes are noted in the left upper quadrant and right upper quadrant. SL: 08/03/2013 [facility] Abdomen complete US Abdominal Ultrasound: The study is technically limited by gas. The gallbladder is not visualized consistent cholecystectomy. The common duct is 4 mm in diameter. The liver measures approximately 18 cm in length. There is a relatively homogeneous echo pattern. CT on 07/24/2013 showed multiple small low-density lesions in the right lobe which are not visualized on ultrasound. Hepatopedal flow in the main portal vein is demonstrated. The spleen, pancreas, kidneys, infrarenal aorta, and inferior vena cava are unremarkable. IMPRESSION: 1. The small liver lesions seen on the r ecent CT are not demonstrated. The larger ones demonstrate stability compared to noncontrast CT on 09/05/2012, therefore are likely benign. 2. No other acute ultrasound abnormality of the abdomen. SL:07/27/2013 [facility] Foot AP lateral Left foot 2 vi ews: COMPARISON: No priors. FINDINGS: There is overlap of the bony structures of the left foot particularly in the region of the digits on the lateral examination. No grossly displaced fracture is evident. Would recommend a complete 3 view study with better filming technique for a more thorough radiographic assessment. Small spur is noted along the inferior margin of the calcaneus. SL:07/25/2013 [facility] Chest 2 views EXAM: Chest 2 views HISTORY: Dyspnea. COMPARISON: 01/12/2013. TECHNIQUE: Frontal and lateral views of the chest. FINDINGS: Heart size upper normal. No pneumonia, pulmonary edema or pleural effusion. Spondylosis thoracic spine. IMPRESSION: No acute findings in the chest. SL: 16 07/24/2013 [facility] Abdomen/Pelvis w contrast CT C T abdomen/pelvis with oral and IV contrast. HISTORY: Acute abdominal pain. COMPARISON: 09/05/2012. FINDINGS: The lung bases are clear. Several small hypodense liver lesions are grossly unchanged. Cholecystectomy. Postoperative stomach, likely gastric sleeve. The spleen, pancreas, and adrenal glands appear normal. Kidneys are moderately atrophic. Right renal embolization coils are unchanged. Urinary bladder unremarkable. Scattered colonic diverticula without CT evidence of diverticulitis. Appendix not visualized but no CT evidence of appendicitis. Small bowel unremarkable. Small periumbilical fat-containing hernia. No ascites. No acute osseous abnormality. IMPRESSION: 1. Grossly unchanged small hypodense valerie er lesions. 2. Renal atrophy. 3. Mild colonic diverticulosis. 4. Postoperative changes as described. SL: 13 07/24/2013 [facility] Stomach UGI (water soluble contrast) Exam: UPPER GI SERIES Date: Jun 30, 2013 05:08:00 PM CLINICAL INDICATION: Gastric sleeve procedure FINDINGS: A scout sniper image demonstrates right upper quadrant cholecystectomy clips and nonobstructive bowel gas pattern. Two cups of water soluble contrast were administered. There is no leakage of contrast, and contrast passes through to the duodenum with no leak and no evidence of obstruction. IMPRESSION: No evidence of leak or obstruction following gastric sleeve procedure. 06/30/2013 [facility] Abdomen AP view EXAM: XR ABDOM EN 1 VIEW DATE: June 28, 2013. INDICATION: Abdominal pain. COMPARISON: December 26, 2012. TECHNIQUE: Three radiographs provided for interpretation. FINDINGS: Lower thorax is unremarkable where visualized. The bowel gas pattern is nonobstructive. Moderate fecal material is seen throughout the colon. However, this is significantly improved compared to prior exam. No abnormal mass or organomegaly seen. No suspicious calcifications found. Surgical clips and coils are seen in the right abdomen. No worrisome skeletal abnormalities. IMPRESSION: 1. Normal bowel gas pattern. Mild consti pation.. Interpreted by Kallie Isbell MD. 06/28/2013 [facility] Consultation Notes No Data Provided for This Section Discharge Summaries No Data Provided for This Section History and Physicals No Data Provided for This Section Vital Signs Vital Sign Value Date Comments Source Systolic (mm Hg) 129 06/10/2016 [facility] Diastolic (mm Hg) 74 06/10/2016 [facility] Heart Rate 94 06/10/2016 [facility] Respitory Rate 18 06/10/2016 [facility] Temperature Oral (F) 98.4 F 06/10/2016 [facility] Systolic (mm Hg) 120 06/10/2016 [facility] Diastolic (mm Hg) 76 06/10/2016 [facility] Temperature Oral (F) 98.3 F 06/10/2016 [facility] Respitory Rate 18 06/10/2016 [facility] Heart Rate 98 06/10/2016 [facility] Systolic (mm Hg) 118 06/10/2016 [facility] Diastolic (mm Hg) 66 06/10/2016 [facility] Heart Rate 86 06/10/2016 [facility] Respitory Rate 18 06/10/2016 [facility] Temperature Oral (F) 97.8 F 06/10/2016 [facility] Height 146.05 cm 06/06/2016 [facility] Weight 94.801 06/06/2016 [facility] BMI Calculated 44.44 06/06/2016 [facility] Height 144.78 cm 06/05/2016 [facility] BMI Calculated 45.54 06/05/2016 [facility] Weight 95.455 06/05/2016 [facility] BMI Calculated 45.54 06/05/2016 [facility] Height 144.78 cm 06/05/2016 [facility] Weight 95.455 06/05/2016 [facility] Systolic (mm Hg) 164 04/22/2015 [facility] Diastolic (mm Hg) 75 04/22/2015 [facility] Respitory Rate 18 04/22/2015 [facility] Heart Rate 76 04/22/2015 [facility] Temperature Oral (F) 98.7 F 04/22/2015 [facility] Respitory Rate 18 04/22/2015 [facility] Temperature Oral (F) 97.7 F 04/22/2015 [facility] Systolic (mm Hg) 136 04/22/2015 [facility] Diastolic (mm Hg) 66 04/22/2015 [facility] Heart Rate 78 04/22/2015 [facility] Systolic (mm Hg) 116 04/22/2015 [facility] Diastolic (mm Hg) 67 04/22/2015 [facility] Respitory Rate 18 04/22/2015 [facility] Temperature Oral (F) 97.6 F 04/22/2015 [facility] Heart Rate 71 04/22/2015 [facility] BMI Calculated 38.6 04/16/2015 [facility] Height 144.78 cm 04/16/2015 [facility] Weight 80.909 04/16/2015 [facility] Height 144.78 cm 04/16/2015 [facility] BMI Calculated 38.6 04/16/2015 [facility] Weight 80.909 04/16/2015 [facility] Weight 84.8 04/15/2015 [facility] BMI Calculated 40.46 04/15/2015 [facility] Height 144.78 cm 04/15/2015 [facility] Respitory Rate 20 01/11/2015 [facility] Temperature Oral (F) 98.0 F 01/11/2015 [facility] Heart Rate 72 01/11/2015 [facility] Systolic (mm Hg) 110 01/11/2015 [facility] Diastolic (mm Hg) 60 01/11/2015 [facility] Systolic (mm Hg) 120 01/11/2015 [facility] Diastolic (mm Hg) 56 01/11/2015 [facility] Heart Rate 78 01/11/2015 [facility] Respitory Rate 18 01/11/2015 [facility] Systolic (mm Hg) 143 01/11/2015 [facility] Diastolic (mm Hg) 69 01/11/2015 [facility] Heart Rate 78 01/11/2015 [facility] Respitory Rate 18 01/11/2015 [facility] Height 144.78 cm 01/11/2015 [facility] Weight 77.273 01/11/2015 [facility] BMI Calculated 36.86 01/11/2015 [facility] Temperature Oral (F) 97.8 F 01/11/2015 [facility] Heart Rate 80 11/27/2014 [facility] Diastolic (mm Hg) 78 11/27/2014 [facility] Systolic (mm Hg) 137 11/27/2014 [facility] Weight 80 0 11/27/2014 [facility] Height 144.78 cm 11/27/2014 [facility] BMI Calculated 38.17 11/27/2014 [facility] Temperature Oral (F) 97.1 F 11/27/2014 [facility] Heart Rate 83 11/06/2014 [facility] Respitory Rate 19 11/06/2014 [facility] Diastolic (mm Hg) 70 11/06/2014 [facility] Systolic (mm Hg) 149 11/06/2014 [facility] Height 151 cm 11/06/2014 [facility] BMI Calculated 35.26 11/06/2014 [facility] Weight 80.4 11/06/2014 [facility] Respitory Rate 18 09/19/2014 [facility] Heart Rate 82 09/19/2014 [facility] Temperature Oral (F) 98.3 F 09/19/2014 [facility] Diastolic (mm Hg) 83 09/19/2014 [facility] Systolic (mm Hg) 130 09/19/2014 [facility] Heart Rate 84 09/19/2014 [facility] Diastolic (mm Hg) 87 09/19/2014 [facility] Respitory Rate 18 09/19/2014 [facility] Systolic (mm Hg) 148 09/19/2014 [facility] Weight 84.007 09/19/2014 [facility] BMI Calculated 40.08 09/19/2014 [facility] Height 144.78 cm 09/19/2014 [facility] Respitory Rate 18 09/19/2014 [facility] Temperature Oral (F) 98.5 F 09/19/2014 [facility] Heart Rate 84 09/19/2014 [facility] Diastolic (mm Hg) 79 09/19/2014 [facility] Systolic (mm Hg) 132 09/19/2014 [facility] Heart Rate 70 09/03/2014 [facility] Respitory Rate 18 09/03/2014 [facility] Systolic (mm Hg) 132 09/03/2014 [facility] Diastolic (mm Hg) 72 09/03/2014 [facility] Systolic (mm Hg) 132 09/03/2014 [facility] Diastolic (mm Hg) 72 09/03/2014 [facility] Respitory Rate 20 09/03/2014 [facility] Heart Rate 76 09/03/2014 [facility] Heart Rate 83 09/03/2014 [facility] Systolic (mm Hg) 134 09/03/2014 [facility] Respitory Rate 20 09/03/2014 [facility] Diastolic (mm Hg) 67 09/03/2014 [facility] Height 144.78 cm 09/03/2014 [facility] Weight 77.273 09/03/2014 [facility] BMI Calculated 36.86 09/03/2014 [facility] Temperature Oral (F) 98.6 F 09/03/2014 [facility] Diastolic (mm Hg) 65 08/02/2014 [facility] Respitory Rate 18 08/02/2014 [facility] Systolic (mm Hg) 103 08/02/2014 [facility] Temperature Oral (F) 98.7 F 08/02/2014 [facility] Heart Rate 85 08/02/2014 [facility] Respitory Rate 18 08/02/2014 [facility] Heart Rate 81 08/02/2014 [facility] Temperature Oral (F) 98.9 F 08/02/2014 [facility] Diastolic (mm Hg) 62 08/02/2014 [facility] Systolic (mm Hg) 103 08/02/2014 [facility] Diastolic (mm Hg) 61 08/02/2014 [facility] Heart Rate 79 08/02/2014 [facility] Respitory Rate 18 08/02/2014 [facility] Systolic (mm Hg) 98 08/02/2014 [facility] Temperature Oral (F) 98.3 F 08/02/2014 [facility] Weight 72.273 08/02/2014 [facility] BMI Calculated 34.48 08/02/2014 [facility] Height 144.78 cm 08/02/2014 [facility] BMI Calculated 32.19 08/01/2014 [facility] Height 154.94 cm 08/01/2014 [facility] Weight 77.273 08/01/2014 [facility] Respitory Rate 16 11/29/2013 [facility] Systolic (mm Hg) 119 11/29/2013 [facility] Diastolic (mm Hg) 77 11/29/2013 [facility] Heart Rate 80 11/29/2013 [facility] Temperature Oral (F) 98.1 F 11/29/2013 [facility] Diastolic (mm Hg) 75 11/29/2013 [facility] Temperature Oral (F) 97.5 F 11/29/2013 [facility] Heart Rate 79 11/29/2013 [facility] Respitory Rate 16 11/29/2013 [facility] Systolic (mm Hg) 125 11/29/2013 [facility] Systolic (mm Hg) 105 11/29/2013 [facility] Diastolic (mm Hg) 67 11/29/2013 [facility] Heart Rate 71 11/29/2013 [facility] Respitory Rate 16 11/29/2013 [facility] Temperature Oral (F) 97.8 F 11/29/2013 [facility] Weight 72.273 11/10/2013 [facility] Height 144.78 cm 11/10/2013 [facility] Height 144.78 cm 11/10/2013 [facility] Weight 75 0 11/10/2013 [facility] Height 144.78 cm 11/10/2013 [facility] Respitory Rate 14 08/10/2013 [facility] Diastolic (mm Hg) 64 08/10/2013 [facility] Heart Rate 91 08/10/2013 [facility] Respitory Rate 18 08/10/2013 [facility] Systolic (mm Hg) 101 08/10/2013 [facility] Temperature Oral (F) 99.3 F 08/10/2013 [facility] Heart Rate 77 08/10/2013 [facility] Temperature Oral (F) 97.7 F 08/10/2013 [facility] Systolic (mm Hg) 91 08/10/2013 [facility] Diastolic (mm Hg) 60 08/10/2013 [facility] Respitory Rate 17 08/10/2013 [facility] Diastolic (mm Hg) 60 08/10/2013 [facility] Temperature Oral (F) 98.6 F 08/10/2013 [facility] Heart Rate 89 08/10/2013 [facility] Systolic (mm Hg) 93 08/10/2013 [facility] Weight 89.5 08/09/2013 [facility] Weight 92.869 08/07/2013 [facility] Weight 81.818 08/05/2013 [facility] Height 162.56 cm 08/05/2013 [facility] Height 162.56 cm 08/05/2013 [facility] Weight 88 1 [facility] Systolic (mm Hg) 116 08/03/2013 [facility] Diastolic (mm Hg) 68 08/03/2013 [facility] Respitory Rate 18 08/03/2013 [facility] Heart Rate 89 08/03/2013 [facility] Temperature Oral (F) 97.9 F 08/03/2013 [facility] Heart Rate 106 07/30/2013 [facility] Respitory Rate 18 07/30/2013 [facility] Systolic (mm Hg) 116 07/30/2013 [facility] Diastolic (mm Hg) 71 07/30/2013 [facility] Temperature Oral (F) 98.2 F 07/30/2013 [facility] Heart Rate 108 07/30/2013 [facility] Temperature Oral (F) 98.5 F 07/30/2013 [facility] Respitory Rate 17 07/30/2013 [facility] Systolic (mm Hg) 128 07/30/2013 [facility] Diastolic (mm Hg) 76 07/30/2013 [facility] Systolic (mm Hg) 100 07/30/2013 [facility] Respitory Rate 18 07/30/2013 [facility] Heart Rate 87 07/30/2013 [facility] Temperature Oral (F) 98.0 F 07/30/2013 [facility] Diastolic (mm Hg) 60 07/30/2013 [facility] Weight 90.909 07/24/2013 [facility] Height 149.86 cm 07/24/2013 [facility] Weight 104.545 07/24/2013 [facility] Systolic (mm Hg) 125 07/03/2013 [facility] Respitory Rate 19 07/03/2013 [facility] Diastolic (mm Hg) 62 07/03/2013 [facility] Heart Rate 69 07/03/2013 [facility] Temperature Oral (F) 98 F 07/03/2013 [facility] Systolic (mm Hg) 121 07/03/2013 [facility] Diastolic (mm Hg) 54 07/03/2013 [facility] Respitory Rate 18 07/03/2013 [facility] Heart Rate 71 07/03/2013 [facility] Temperature Oral (F) 97.9 F 07/03/2013 [facility] Systolic (mm Hg) 123 07/03/2013 [facility] Respitory Rate 18 07/03/2013 [facility] Diastolic (mm Hg) 60 07/03/2013 [facility] Heart Rate 63 07/03/2013 [facility] Temperature Oral (F) 97.4 F 07/03/2013 [facility] Weight 100.455 06/22/2013 [facility] Height 147.32 cm 06/22/2013 [facility] Height 147.32 cm 06/14/2013 [facility] Weight 105.909 06/14/2013 [facility] Height 144.78 cm 01/12/2013 [facility] Weight 100 01/12/2013 [facility] Weight 47.727 01/06/2013 [facility] Height 144.78 cm 01/06/2013 [facility] Heart Rate 91 12/28/2012 [facility] Temperature Oral (F) 98.3 F 12/28/2012 [facility] Diastolic (mm Hg) 70 12/28/2012 [facility] Systolic (mm Hg) 111 12/28/2012 [facility] Respitory Rate 20 12/28/2012 [facility] Systolic (mm Hg) 108 12/28/2012 [facility] Respitory Rate 20 12/28/2012 [facility] Temperature Oral (F) 97.8 F 12/28/2012 [facility] Diastolic (mm Hg) 66 12/28/2012 [facility] Respitory Rate 21 12/28/2012 [facility] Diastolic (mm Hg) 73 12/28/2012 [facility] Systolic (mm Hg) 119 12/28/2012 [facility] Temperature Oral (F) 97.7 F 12/28/2012 [facility] Heart Rate 74 12/28/2012 [facility] Heart Rate 66 12/28/2012 [facility] Weight 106.6 12/27/2012 [facility] Weight 106.6 12/27/2012 [facility] Height 146.05 cm 12/27/2012 [facility] Weight 102.727 12/26/2012 [facility] Height 144.78 cm 12/26/2012 [facility] Weight 105.000 12/05/2012 [facility] Height 144.78 cm 12/05/2012 [facility] Temperature Oral (F) 98.1 F 12/03/2012 [facility] Heart Rate 88 12/03/2012 [facility] Respitory Rate 18 12/03/2012 [facility] Systolic (mm Hg) 134 12/03/2012 [facility] Diastolic (mm Hg) 71 12/03/2012 [facility] Systolic (mm Hg) 106 12/03/2012 [facility] Diastolic (mm Hg) 63 12/03/2012 [facility] Respitory Rate 18 12/03/2012 [facility] Temperature Oral (F) 98.1 F 12/03/2012 [facility] Heart Rate 88 12/03/2012 [facility] Heart Rate 78 12/03/2012 [facility] Temperature Oral (F) 98.5 F 12/03/2012 [facility] Respitory Rate 18 12/03/2012 [facility] Systolic (mm Hg) 119 12/03/2012 [facility] Diastolic (mm Hg) 73 12/03/2012 [facility] Height 144.78 cm 11/30/2012 [facility] Weight 105.909 11/30/2012 [facility] Height 144.78 cm 11/30/2012 [facility] Weight 105.227 11/30/2012 [facility] Weight 102.727 11/29/2012 [facility] Height 149.86 cm 11/29/2012 [facility] Heart Rate 91 09/11/2012 [facility] Temperature Oral (F) 97.6 F 09/11/2012 [facility] Systolic (mm Hg) 133 09/11/2012 [facility] Respitory Rate 20 09/11/2012 [facility] Diastolic (mm Hg) 71 09/11/2012 [facility] Temperature Oral (F) 97.9 F 09/10/2012 [facility] Heart Rate 88 09/10/2012 [facility] Systolic (mm Hg) 151 09/10/2012 [facility] Respitory Rate 20 09/10/2012 [facility] Diastolic (mm Hg) 78 09/10/2012 [facility] Systolic (mm Hg) 150 09/10/2012 [facility] Respitory Rate 20 09/10/2012 [facility] Diastolic (mm Hg) 86 09/10/2012 [facility] Temperature Oral (F) 97.8 F 09/10/2012 [facility] Heart Rate 73 09/10/2012 [facility] Weight 100.000 09/05/2012 [facility] Height 157.48 cm 09/05/2012 [facility] Heart Rate 78 07/11/2012 [facility] Temperature Oral (F) 98.1 F 07/11/2012 [facility] Diastolic (mm Hg) 70 07/11/2012 [facility] Systolic (mm Hg) 146 07/11/2012 [facility] Respitory Rate 18 07/11/2012 [facility] Systolic (mm Hg) 134 07/11/2012 [facility] Diastolic (mm Hg) 80 07/11/2012 [facility] Respitory Rate 18 07/11/2012 [facility] Heart Rate 85 07/11/2012 [facility] Temperature Oral (F) 98.4 F 07/11/2012 [facility] Temperature Oral (F) 97.6 F 07/11/2012 [facility] Diastolic (mm Hg) 72 07/11/2012 [facility] Systolic (mm Hg) 128 07/11/2012 [facility] Respitory Rate 19 07/11/2012 [facility] Heart Rate 74 07/11/2012 [facility] Weight 115.909 07/01/2012 [facility] Height 154.94 cm 07/01/2012 [facility] Heart Rate 51 02/16/2012 [facility] Temperature Oral (F) 97.6 F 02/16/2012 [facility] Respitory Rate 18 02/16/2012 [facility] Systolic (mm Hg) 121 02/16/2012 [facility] Diastolic (mm Hg) 69 02/16/2012 [facility] Systolic (mm Hg) 114 02/16/2012 [facility] Respitory Rate 18 02/16/2012 [facility] Diastolic (mm Hg) 68 02/16/2012 [facility] Temperature Oral (F) 97.9 F 02/16/2012 [facility] Heart Rate 56 02/16/2012 [facility] Respitory Rate 18 02/16/2012 [facility] Diastolic (mm Hg) 63 02/16/2012 [facility] Heart Rate 57 02/16/2012 [facility] Temperature Oral (F) 98.3 F 02/16/2012 [facility] Systolic (mm Hg) 123 02/16/2012 [facility] Height 144.78 cm 02/01/2012 [facility] Height 162.56 cm 01/31/2012 [facility] Weight 81.818 01/31/2012 [facility] Diastolic (mm Hg) 73 01/29/2012 [facility] Systolic (mm Hg) 157 01/29/2012 [facility] Respitory Rate 18 01/29/2012 [facility] Heart Rate 69 01/29/2012 [facility] Temperature Oral (F) 98.4 F 01/29/2012 [facility] Systolic (mm Hg) 145 01/29/2012 [facility] Respitory Rate 18 01/29/2012 [facility] Diastolic (mm Hg) 72 01/29/2012 [facility] Heart Rate 55 01/29/2012 [facility] Temperature Oral (F) 98.0 F 01/29/2012 [facility] Systolic (mm Hg) 111 01/29/2012 [facility] Respitory Rate 18 01/29/2012 [facility] Heart Rate 56 01/29/2012 [facility] Temperature Oral (F) 98.1 F 01/29/2012 [facility] Diastolic (mm Hg) 68 01/29/2012 [facility] Height 152.40 cm 12/31/2011 [facility] Weight 100.227 12/31/2011 [facility] Weight 109.091 12/31/2011 [facility] Height 152.40 cm 12/31/2011 [facility] Encounters Location Location Details Encounter Type Encounter Number Reason For Visit Attending Provider ADM Date DC Date Status Source [facility] Inpatient [id number] TASO MOUGOURIS 12/31/2011 01/29/2012 Discharged [facility] Inpatient [id number] HEMATURIA WITH UR INARY RETENTION, ABDOMINAL PAIN TASO MOUGOURIS 01/31/2012 02/16/2012 Active [facility] Inpatient [id number] HYPERKALEMIA, WEA KNESS TASO MOUGOURIS 06/30/2012 07/11/2012 Active [facility] OU [id number] LEFT HIP PAIN MONIE MILAN 09/05/2012 09/10/2012 Active [facility] Inpatient [id number] MONIE MILAN 11/29/2012 12/03/2012 Discharged [facility] [id number] WILLY FRYE 12/05/2012 12/05/2012 Discharged [facility] [id number] CHOLO ALVAREZ 12/23/2012 12/23/2012 Discharged [facility] Inpatient [id number] FARAZ OBREGON 12/26/2012 12/28/2012 Discharged [facility] Emergency [id number] LEFT ARM PAIN IMANI MORENO 01/06/2013 01/06/2013 Active [facility] Emergency [id number] SOB CHOLO ALVAREZ 01/12/2013 01/12/2013 Active [facility] SIS [id number] BDDC/REFLUX, SCRE ENING KULVEDNA NARANJO 02/23/2013 02/23/[address] [facility] Inpatient [id number] MORBID OBESITY CELINEEDNA ISAMAR 06/22/2013 07/03/2013 Active [facility] Inpatient [id number] MONIE YATES 07/24/2013 07/30/2013 Discharged [facility] Emergency [id number] ABDOMINAL PAIN SHELISE WALTERS 08/03/2013 08/03/2013 Active [facility] Inpatient [id number] ENCHAVOET SERGVijay 08/07/2013 08/10/2013 Discharged [facility] SIS [id number] BDDC/GERD CHANTELLE PALMER 09/20/2013 09/20/2013 Active [facility] Inpatient [id number] ALE VYASJANE 11/10/2013 11/29/[address] [facility] Inpatient [id number] Radamespretty Diaz 08/01/2014 08/02/2014 [facility] [id number] 18 Patrick Singh 09/03/2014 09/03/2014 [facility] [id number] 19 Evansjulianajacques Lainez 09/19/2014 09/19/2014 [facility] OP Transplant Clinic - Pre [id number] Edmund Buchanan 11/06/2014 12/06/2014 [facility] Outpatient [id number] Mariama Moreno 11/27/2014 11/28/2014 [facility] [id number] 23 Kim Bobby 01/11/2015 01/11/2015 [facility] Inpatient [id number] Minor Cardenas 04/15/2015 04/22/2015 [facility] Inpatient [id number] Daphney Esquivel 06/05/2016 06/10/2016 [facility] Outpatient [id number] Tiffanie Wednesday11/13/2017 11/14/2017 [facility] Outpatient [id number] Tiffanie Wednesday11/27/2017 11/28/2017 [facility] Procedures Procedure Code Date Perfomer Comments Source Hemodialysis 39.95 08/07/2013 [facility] Esophagogastroduodenoscopy [egd] with Closed Biopsy [id number] 07/28/2013 [facility] Esophagogastroduodenoscopy [egd] with Closed Biopsy 45.16 07/28/2013 [facility] Hemodialysis [id number] 07/24/2013 [facility] Laparoscopic sleeve gastrectomy [id number] 06/22/2013 [facility] Laparoscopic sleeve gastrectomy [id number] 06/22/2013 [facility] Cholecystectomy [id number] 10/25/1991 [facility] Cholecystectomy [id number] 10/25/1991 [facility] Exploration of abdomen<sup>1</sup> [id number] 10/25/1991 and Repair of Kiddney and stomach [facility] Exploration of abdomen <sup>1</sup> [id number] 10/25/1991 1and Repair of Kiddney and stomach [facility] Appendectomy [id number] [facility] Gastric bypass [id number] [facility] Hemodialysis [id number] [facility] Insertion of tunneled dialysis catheter using fluoroscopic guidance<sup>2</sup> [id number] Left AV fistula [facility] Appendectomy [id number] [facility] Insertion of tunneled dialysis catheter using fluoroscopic guidance<sup>1</sup> [id number] 1Left AV fistula [facility] Assessment and Plan Assessment and Plan Date Source Extracted from:Title: Clinical Document Author: Juaquin Soriano MD Date: 06/10/16 Progress Note - Daily [facility] Completed: May, 15:04 by Juaquin Soriano MD RM: 124 - 1P, SE C1B TAI GRANT 56y (: 1960) F Attending: Daphney Esquivel MD Service: Internal Medicine Reason for Admission: DIVERTICULITIS, MISSED HD Working DRG: Other digestive system diagnoses w/o CC/SENIOR CARE Code status: None Specified=FULL CODE Current diet: Isolation: Contact [Ordered] Allergies: NIFEdipine SUBJECTIVE Doing well No new events 24hr Labs 06/10 1218 Glucose POC 124 H 06/10 0722 Glucose POC 109 H 06/10 0448 Glucose Lvl 160 H BUN 23 H Creatinine Lvl 6.24 H Sodium Lvl 139 Potassium Lvl 4.1 Chloride Lvl 104 CO2 27 AGAP 12.1 Calcium Lvl 7.7 L eGFR 7 06/09 2139 Glucose POC 98 06/09 1715 Glucose POC 140 H [place] still necessary (Yes/No): Line still necessary (Yes/No): Vitals Tmp(F) Pulse BP RR SpO2 FIO2 06/10 08:00 98.3 98 120/76 1 8 96 --- 06/10 04:00 97.8 86 118/66 1 8 --- --- 06/10 00:00 98.1 92 125/73 1 8 --- --- 06/09 20:00 98.0 82 96/58 18 --- --- 06/09 16:18 98.5 81 105/65 2 0 96 --- 24 Hr Tmax: 98.5F (36.94c) at 06/09 16:1 8 Vital Signs are the last 5 in the past 48 hours. Date Wt(kg) Wt(lb) Ht(cm) Ht(in) Method 06/06 94.80 208.56 146.05 57.50 Measured 06/05 (initial) 95.45 210.00 Estimated 06/05 144.78 57.00 Stated I&O Record In Out Bal 06/10 24hr Tot 602 0 602 06/09 24hr Tot 1148 0 1148 Medications (37) Active Scheduled Meds (21): 06/06/16 DULoxetine 20 mg PO Daily 06/06/16 carvedilol 3.125 mg PO BID 06/10/16 cefuroxime (Ceftin 250 mg oral tablet) 250 mg PO BID 06/06/16 clopidogrel 75 mg PO Daily 06/05/16 divalproex sodium (Depakote ER 500 mg oral tablet, extended release) 500 mg PO Bedtime 06/09/16 famotidine (Pepcid 40 mg oral t ablet) 40 mg PO Q12H 06/06/16 gabapentin (gabapentin 300 mg o ral capsule) 300 mg PO BID 06/06/16 insulin aspart-insulin aspart p rotamine (NovoLOG 70/30) 26 unit SUB-Q TID 06/06/16 insulin detemir (Levemir FlexPe n) 16 unit SUB-Q QAM 06/05/16 insulin detemir 60 unit SUB-Q B edtime 06/06/16 lidocaine topical (Lidoderm 5% topical film (patch)) 1 patch TOP Daily 06/06/16 lisinopril 10 mg PO Daily 06/10/16 metroNIDAZOLE (Flagyl) 500 mg P O [id number] 06/06/16 midodrine 10 mg PO Daily 06/06/16 multivitamin (Nephro-Melodie) 1 ta b PO Daily 06/06/16 pregabalin (Lyrica) 75 mg PO BI D 06/06/16 rOPINIRole 0.25 mg PO TID 06/10/16 saccharomyces boulardii lyo (Fl orastor) 250 mg PO BID 06/06/16 sevelamer (Renvela) 2,400 mg PO TID-Meals 06/05/16 simvastatin 10 mg PO Bedtime 06/06/16 sodium bicarbonate (sodium bica rbonate 325 mg oral tablet) 325 mg PO TID Unscheduled Meds: None PRN Meds (16): 06/06/16 Dextrose 50% in Water IV (Dextr ose 50% Syringe) 12.5 gm IVP PRN 06/06/16 Dextrose 50% in Water IV (Dextr ose 50% Syringe) 25 gm IVP PRN 06/05/16 SUMAtriptan 25 mg PO PRN 06/05/16 acetaminophen-hydrocodone (Norc o 5/325 oral tablet) 1 tab PO Q6H 06/05/16 acetaminophen 650 mg PO Q4H 06/05/16 cyclobenzaprine 5 mg PO TID 06/06/16 glucagon 1 mg IM PRN 06/09/16 hydromorphone (Dilaudid) 0.5 mg IVP Q4H 06/06/16 insulin aspart 2 unit SUB-Q TID -Before Meals 06/06/16 insulin aspart 4 unit SUB-Q TID -Before Meals 06/06/16 insulin aspart 6 unit SUB-Q TID -Before Meals 06/06/16 insulin aspart 8 unit SUB-Q TID -Before Meals 06/06/16 insulin aspart 10 unit SUB-Q TI D-Before Meals 06/05/16 ondansetron 4 mg IVP Q6H 06/05/16 promethazine 6.25 mg PO Q4H 06/05/16 tramadol (tramadol 50 mg oral t ablet) 50 mg PO Q4H One Time Meds: None Continuous Infusions: None EXAM HEENT: EOM intact, No scleral icterus NECK: Supple CHEST: CTA B/L, No retractions, CVS: S1 and S2 WNL ABDOMEN: soft, BS +, no rebound, No guarding, No tenderness EXT: No edema, SKIN: No jaundice NEURO: AAO x 3 ASSESSMENT AND PLAN: 1. Left lower quadrant pain 2. Uncomplicated Diverticulitis, - On antibiotics - Elective colosncopy after 8 weeks 3. Diarrhea - Cont probiotics - Cont pepcid 4. ESRD on HD 06/10/2016 [facility] Extracted from:Title: Clinical Document Author: Lisbet Sheehan MD Date: 04/22/15 Progress Note Nephrology [facility] SUBJECTIVE pt seen on hd ,no complication OBJECTIVE Vital Signs (last 24 hrs) Last Charted Temp Oral 97.7 DegF (APR 22 08:00) Heart Rate Peripheral 78 bpm (APR 22 08:00) Resp Rate 18 BRMIN (APR 22 08:00) SBP 136 mmHg (APR 22 08:00) DBP 66 mmHg (APR 22 08:00) I&O Record In Out Bal 04/22 24hr Tot 0 0 0 04/21 24hr Tot 13 0 13 PHYCIAL EXAMINATION: AAO* 3 ,NAD CHEST: Clear. CARDIOVASCULAR: S1, S2, no murmur. ABDOMEN: Soft with no tenderness. Bowel sounds are present. EXTREMITIES: With no swelling. She actually has left AV fistula with good thrill Medications (30) Active Scheduled: (14) carvedilol 3.125 mg TAB 3.125 mg 1 tab, PO, BID clopidogrel 75 mg TAB 75 mg 1 tab, PO, Daily divalproex sodium 500 mg ER tab 500 mg 1 tab, PO, Bedtime DULoxetine 20 mg delayed release capsule 20 mg 1 cap, PO, Bedtime folic acid/vit b complex w/c tab (nephro-melodie Rx) 1 tab, PO, Daily heparin 5000 unit/1 ml INJ VL 5,000 unit 1 mL, SUB-Q, Q8H insulin aspart (mix) 70-30 INJ 3ml Pen 26 unit 0.26 mL, SUB-Q, TID insulin DETEMIR 100unit/ml 3ml Pen 16 unit 0.16 mL, SUB-Q, Daily insulin DETEMIR 100unit/ml 3ml Pen 60 unit 0.6 mL, SUB-Q, Bedtime midodrine 5 mg TAB 10 mg 2 tab, PO, Daily pregabalin 75mg cap 75 mg 1 cap, PO, BID rOPINIRole 0.25 mg TAB 0.25 mg 1 tab, PO, TID sevelamer carbonate 800mg tab (Renvela) 2,400 mg 3 tab, PO, TID-Meals simvastatin 10 mg TAB 10 mg 1 tab, PO, Bedtime Continuous: (0) PRN: (16) acetaminophen-hydrocodone 325mg-5mg tab 1 tab, PO, Q4H Dextrose 50% 50 ml INJ syringe 12.5 gm 25 mL, IVP, PRN Dextrose 50% 50 ml INJ syringe 25 gm 50 mL, IVP, PRN glucagon recombinant 1 mg PDR 1 mg, IM, PRN HYDROmorphone 1mg/1ml inj amp 0.5 mg 0.5 mL, IV, Q4H insulin aspart 100 unit/ml 3ml Pen 2 unit 0.02 mL, SUB-Q, TID-Before Meals insulin aspart 100 unit/ml 3ml Pen 4 unit 0.04 mL, SUB-Q, TID-Before Meals insulin aspart 100 unit/ml 3ml Pen 6 unit 0.06 mL, SUB-Q, TID-Before Meals insulin aspart 100 unit/ml 3ml Pen 8 unit 0.08 mL, SUB-Q, TID-Before Meals insulin aspart 100 unit/ml 3ml Pen 10 unit 0.1 mL, SUB-Q, TID-Before Meals insulin aspart 100 unit/ml 3ml Pen 1 unit 0.01 mL, SUB-Q, Bedtime insulin aspart 100 unit/ml 3ml Pen 2 unit 0.02 mL, SUB-Q, Bedtime insulin aspart 100 unit/ml 3ml Pen 3 unit 0.03 mL, SUB-Q, Bedtime insulin aspart 100 unit/ml 3ml Pen 4 unit 0.04 mL, SUB-Q, Bedtime ondansetron 4mg/2mL INJ SYRINGE 4 mg 2 mL, IV, Q4H traMADol 50 mg TAB 50 mg 1 tab, PO, Q4H Labs (Last four charted values) WBC 6.8 (APR 22) 9.7 (APR 17) 6.8 (SUNIL 23) 7.6 (APR 15) Hgb L 8.2 (APR 22) L 10.2 (APR 17) L 10.6 (APR 16) L 10.3 (APR 15) Hct L 24.7 (APR 22) L 30.6 (SUNIL 24) L 32.3 (SUNIL 23) L 30.6 (SUNIL 22) Plt 158 (APR 22) 188 (MAR 24) 265 (SUNIL 23) 263 (APR 15) Na L 134 (APR 22) L 132 (APR 17) 135 (APR 15) K H 5.2 (APR 22) 5.1 (APR 17) 4.2 (APR 15) CO2 24 (APR 22) 25 (APR 17) H 36 (APR 15) Cl 98 (APR 22) L 90 (APR 17) L 93 (APR 15) Cr H 8.8 (APR 22) H 7.6 (APR 17) H 4.0 (APR 15) BUN H 68 (APR 22) H 42 (APR 17) 17 (APR 15) Glucose Random H 118 (APR 22) 86 (APR 17) 84 (APR 15) Ca L 8.2 (APR 22) L 8.2 (APR 17) 8.5 (APR 15) PT 12.6 (APR 15) INR 0.94 (APR 15) PTT H 36.1 (APR 15) IMPRESSION ESRD on HD HTN with low BP on HD right hip pain Anemia of CKD plan -HD today -BP stable -R hip pain ?tearing ligement ,, continu e with pain management and rehab will follow 04/22/2015 [facility] Extracted from:Title: Pre-Kidney Transpl ant Clinic Author: Dakota Schultz MD Date: 11/06/14 Assessment/Plan DM type 2 causing ESRD On HD per Dr. Bran Ordered: Office Visit Level 5 New - 22052 Frailty I am concerned about her mobility and her frequent hospitalizations. Karnofsky score: 60% Ordered: Office Visit Level 5 New - 36741 Obesity Not prohibitive after surgical weight loss Ordered: Office Visit Level 5 New - 53082 Pre-transplant evaluation for kidney transplant At this time she is a very marginal candidate due to her poor performance status and her multiplehospitalizations. Given that shereports improvement with physical therapy I suggest that we complete her workup and re-evaluate her in 6 months, if shecontinues to improve at that time she may be a candidate for kidney transplantation. She will need a standard workup however she has a recent CT scan and this does not need to be repeated. I spent about 20 minutes with the patient discussing kidney transplantation. We discussed the pre-transplant period including the workup and the listing process, as well as the allocation of donor kidneys in the [place]. We briefly discussed the upcoming changes to the kidney allocation system and how the changes may affect the timing of transplantation off of the donor list. We discussed the advantages of living donor kidney transplantation and I encouraged the patient to seek potential living donors. We discussed the transplant operation itself including the incision, the fact that we do not remove the [place] kidneys, some basic technical features of the operation, and some potential surgical complications. We discussed the hospitalization and expected [id number]. Finally, we discussed the need for life-long immunosuppression and follow up. The patient asked appropriate questions and expressed understanding. After completion of the workup the patient's case will be presented in our multi-disciplinary transplant selection conference, and as always the decision regarding the patient's candidacy will be made by the group. Ordered: Office Visit Level 5 New - 11297 12/06/2014 [facility] Extracted from:Title: Clinical Document Author: Enoch Mena MD Date: 08/02/14 Progress Note Nephrology [facility] SUBJECTIVE Patient feeling better today, no nausea/vomiting OBJECTIVE Vital Signs (last 24 hrs) Last Charted Minimum Maximum Temp 98.7 (AUG 02 16:00) 98.0 (AUG 02 04:00) 98.9 (AUG 02 12:00) Heart Rate 85 (AUG 02 16:00) 75 (AUG 02 04:00) 85 (AUG 02 16:00) Resp Rate 18 (AUG 02 16:00) 16 (AUG 01 21:30) 18 (AUG 02 08:) SBP 103 (AUG 02 16:00) 98 (AUG 02 08:00) 114 (AUG 01:30) DBP 65 (AUG 02 16:00) 61 (AUG 02 08:00) 70 (AUG 01 21:30) Weight 72.273 (AUG 01:29) Height 144.78 (OCT 08 21:29) BMI 34.48 (AUG 01 21:29) Input/Output Record In Out Bal 08/02 24hr Tot [phone] 08/01 24hr Tot [phone] Scheduled Meds (13):DULoxetine, gabapentin (gabapentin 300 mg oral capsule), insulin aspart-insulin aspart protamine (NovoLOG 70/30), insulin detemir (Levemir), midodrine, multivitamin, non-formulary (have RPh verify and bar pt own Midrin caps (C-IV)), oxybutynin, pregabalin (Lyrica), rOPINIRole, sevelamer (Renvela), simvastatin, topiramate (Topamax) Unscheduled Meds: None PRN Meds (16):APAP/dichloralphenazone/isometheptene (Midrin), Dextrose 50% in Water IV (Dextrose 50% Syringe), Dextrose 50% in Water IV (Dextrose 50% Syringe), atropine, glucagon, insulin aspart, insulin aspart, insulin aspart, insulin aspart, insulin aspart, morphine Sulfate, morphine Sulfate, nitroglycerin (nitroglycerin 0.4 mg sublingual tablet), ondansetron, promethazine, tramadol (tramadol 50 mg oral tablet) One Time Meds (8):(Completed) diphenhydrAMINE (Benadryl), (Completed) fentaNYL, (not done) gabapentin (gabapentin 100 mg oral capsule), (Completed) hydromorphone (Dilaudid), (Completed) hydromorphone (Dilaudid), (Completed) metoclopramide (Reglan), (Completed) morphine Sulfate, (Completed) ondansetron (Zofran) Continuous Infusions (1):Sodium Chloride 0.9% IV 250 mL (NS 250 mL) Physical Exam: Gen: NAD, AAOx3 HEENT: MMM, anicteric Neck: supple, no JVD CVS: RRR no m/r/g Lungs: CTA bilaterally, no rales or rhonchi Abd: soft, nontender, nondistended, obese Extremities: no clubbing/cyanosis or edema bilateral LE or upper extremities Skin: no rash or petechiae Labs (Last four charted values) WBC 5.5 (AUG 02) 6.2 (AUG 01) Hgb L 8.4 (AUG 02) L 7.6 (AUG 01) Hct L 25.0 (AUG 02) L 22.6 (AUG 01) Plt 190 (AUG 02) 223 (AUG 01) Na 138 (AUG 01) K 4.5 (AUG 01) CO2 29 (AUG 01) Cl 98 (AUG 01) Cr H 6.8 (AUG 01) BUN H 58 (AUG 01) Glucose Random H 129 (AUG 01) Mg 2.2 (AUG 01) Ca L 7.8 (AUG 01) PT 13.1 (AUG 01) INR 0.99 (AUG 01) PTT H 38.1 (AUG 01) Troponin <0.02 (AUG 01) CK MB 1.0 (AUG 01) IMPRESSION: 1. Syncope 2. Hypotension 3. ESRD 4. Anemia CKD PLAN: 1. Patient had similar episode last and had complete workupat [facility] including MRI/MRA/Carotid doppler. This may be related to blood pressure. Reommended continuing midodrine. Discussed with Dr. Diaz. 2. Follow up in HD unit tomorrow 3. Restart [facility] as outpatient. 4. No HD today 08/02/2014 [facility] Plan of Care No Data Provided for This Section Social History Social History Date Source Social History TypeResponse Substance Abuse Use: None. Sexual Sexually active: No. Alcohol Never Smoking Status Former smoker; Exposure to Tobacco Smoke None; Cigarette Smoking Last 365 Days No; Reg Smoking Cessation Counseling No entered on: 06/05/16 08/02/2014 [facility] Social History TypeResponse Substance Abuse Use: None Sexual Sexually active: No Alcohol Use: Never Smoking Status Former smoker, Exposure to Tobacco Smoke None, Cigarette Smoking Last 365 Days No, Reg Smoking Cessation Counseling No 08/02/2014 [facility] Family History No Data Provided for This Section Advance Directives No Data Provided for This Section Functional Status No Data Provided for This Section
--- OUTSIDE RECORDS SUMMARY | 2020-06-20 10:57 | XMS REPORT | Continuity of Care Document ---
Author Author Formerly [facility] t Organization [facility] Address [address] [id number] Phone Unavailable Care Team Providers Care Manager Enterprise Content Management Name Role Phone JASPREET JEREZ PCP Roxann RUSSO Attphys Unavailable JASPREET JEREZ Attphys Unavailable BRITTNEY MARTE Attphys Unavailable Dai MARINO Attphys Unavailable ADRIENNE VALLES Attphys Unavailable Dai REILLY Attphys Unavailable Macho CABALLERO Attphys Unavailable Wednesday, Nya Moreno Attphys Bret BUSTILLO Attphys Unavailable Daphney Esquivel Attphys Amanda Cardenas Attphys Kim Bobby Attphys Torey Buchanan Attphys Mariama Moreno Attphys Johnny Lainez Attphys Meg Singh Attphys Dean Diaz Attphys Dai MARINO Admphys Unavailable Daphney Esquivel Admphys Amanda Cardenas Admphys Dean Diaz Admphys Payers Payer Name Policy Type Policy Number Effective Date Expiration Date Roxann ESCALANTE [id number] 2017 00:00:00 [facility] Medicare A & B [id number] 2012 00:00:00 [facility] Problems Condition Name Condition Details Condition Category Status Onset Date Resolution Date Last Treatment Date Treating Clinician Comments Source Delirium Delirium Disease Active 2019-01-11 00:00:00 Bienvenido Garnett Chest pain Chest pain Disease Active 2018-12-12 00:00:00 Bienvenido Garnett Pneumonia due to infectious organism Pneumonia due to infect ious organism Disease Active 2018-05-13 00:00:00 Bienvenido Garnett DX: R29.818=OTHER SYMPTOMS AND SIGNS INV DX: R29.818=OTHER SYMPTOMS AND SIGNS INV Active 11/18/2017 [facility] Active 2017-11-18 00:00:00 2017-11-27 07:34:00 [facility] Hypotension Hypotension Disease Active 2016-12-21 00:00:00 Bienvenido Garnett CHEST PAIN/SOB CHES T PAIN/SOB Active 06/05/2016 [facility] Active 2016-06-05 00:00:00 2016-06-05 12:21:00 [facility] DIVERTICULITIS, MISSED HD DIVE RTICULITIS, MISSED HD Active 06/05/2016 [facility] Active 2016-06-05 00:00:00 2016-06-09 16:28:00 [facility] Chest pain Chest pain Problem Active 2016-04-14 00:00:00 [facility] End-stage renal disease ESRD (end stage renal disease) Problem Active 2015-08-07 00:00:00 [facility] Jejunitis Jejunitis Problem Active 2015-08-07 00:00:00 [facility] GROIN PAIN GROI N PAIN Active 04/15/2015 [facility] Active 2015-04-15 00:00:00 2015-04-25 22:02:00 [facility] LEG PAIN LEG PAIN Active 04/15/2015 [facility] Active 2015-04-15 00:00:00 2015-04-15 18:26:00 [facility] ABDOMINAL PAIN ABDO ROBIN PAIN Active 01/11/2015 [facility] Active 2015-01-11 00:00:00 2015-01-11 07:49:00 [facility] CARDIAC CLEARANCE CARD IAC CLEARANCE Active 12/03/2014 [facility] Diagnosis Active 2014-12-03 00:00:00 2014-12 14:14:00 [facility] FAUSTO FAUSTO Active 11/07/2014 [facility] Diagnosis Active 2014-11-07 00:00:00 2014-11-27 15:04:00 [facility] RENAL DO NOT USE FOR CHARGES F/C NOTES O RENAL DO NOT USE FOR CHARGES F/C NOTES O Active 11/06/2014 [facility] Diagnosis Active 2014-11-06 06:00:00 2014-11-06 10:04:00 [facility] SYNCOPE SYNC OPE Active 10/05/2014 [facility] Active 2014-10-05 00:00:00 2014-10-05 09:46:00 [facility] SYNCOPE, ABDOMINAL PAIN SYNC OPE, ABDOMINAL PAIN Active 10/05/2014 [facility] Active 2014-10-05 00:00:00 2014-10-05 18:12:00 [facility] SEVERE DYSPESIA, SYNCOPALL EPISODE SEVERE DYSPESIA, SYNCOPALL EPISODE Active 10/05/2014 [facility] Diagnosis Ac tive 2014-10-05 00:00:00 2014-11-20 10:47:00 [facility] PRE RENAL EVAL PRE RENAL EVAL Active 10/03/2014 [facility] Diagnosis Active 2014-10-03 00:00:00 2014-11-15 0 8:42:00 [facility] WEAKNESS WEAK NESS Active 09/19/2014 [facility] Active 2014-09-19 00:00:00 2014-09-19 07:32:00 [facility] VOMITING VOMI TING Active 07/31/2014 [facility] Active 2014-07-31 00:00:00 2014-08-01 07:46:00 [facility] SYNCOPE, ANEMIA SYNC OPE, ANEMIA Active 07/31/2014 [facility] Active 2014-07-31 00:00:00 2014-08-02 10:44:00 [facility] HYPOGLYCEMIA HYPO GLYCEMIA Active 11/09/2013 [facility] Active 2013-11-09 00:00:00 2013-11-27 12:56:00 [facility] BDDC/GERD BDDC /GERD Active 09/18/2013 [facility] Diagnosis Active 2013-09-18 00:00:00 2013-12-14 16:54:00 [facility] COLITIS COLI TIS Active 08/05/2013 [facility] Active 2013-08-05 00:00:00 2013-08-08 07:54:00 [facility] VOMITING, HYPOKALEMIA, ESRD VO MITING, HYPOKALEMIA, ESRD Active 07/24/2013 [facility] Active 2013-07-24 00:00:00 2013-07-28 16:22:00 [facility] SHORTNESS OF BREATH SHOR TNESS OF BREATH Active 07/24/2013 [facility] Active 2013-07-24 00:00:00 2013-07-24 07:09:00 [facility] BDDC/REFLUX, SCREENING BDDC /REFLUX, SCREENING Active 02/02/2013 [facility] Diagnosis Active 2013-02-02 00:00:00 2013-06-22 11:56:00 [facility] SOB SOB Active 01/12/2013 [facility] Active 2013-01-12 00:00:00 2013-11-06 15:11:00 [facility] LEFT ARM PAIN LEFT ARM PAIN Active 01/04/2013 [facility] Active 2013-01-04 12:00:00 2013-01-12 11:20:00 [facility] HYPERKALEMIA HYPE RKALEMIA Active 12/25/2012 [facility] Active 2012-12-25 00:00:00 2012-12-28 08:45:00 [facility] ARM PAIN ARM PAIN Active 12/23/2012 [facility] Active 2012-12-23 00:00:00 2012-12-23 15:33:00 [facility] LUE PAIN AFTER DIALYSIS, HISTORY OF FIST LUE PAIN AFTER DIALYSIS, HISTORY OF FIST Active 12/23/2012 [facility] Ac tive 2012-12-23 00:00:00 2012-12-25 23:30:00 [facility] DYSPNEA DYSP KYLAH Active 11/29/2012 [facility] Diagnosis Active 2012-11-29 00:00:00 2012-11-30 22:06:00 [facility] MORBID OBESITY MORB ID OBESITY Active 10/11/2012 [facility] Diagnosis Active 2012-10-11 00:00:00 2013-07-07 2 1:50:00 [facility] LEFT HIP PAIN LEFT HIP PAIN Active 09/03/2012 [facility] Diagnosis Active 2012-09-03 00:00:00 2012-11-30 09:51:00 [facility] 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 [facility] Problem Active 2012-07-01 00:00:00 2018-03-05 11:23:26 [facility] VRE VRE Active 07/01/2012 Problem 08/04/2013 12/05/12 VRE of the [id number] added by Discern Expert. [facility] Problem Active 2012-07-01 00:00:00 2013-08-04 23:16:27 [facility] HYPERKALEMIA, WEAKNESS HYPE RKALEMIA, WEAKNESS Active 06/30/2012 [facility] Active 2012-06-30 12:00:00 2012-08-08 08:10:00 [facility] ABDOMINAL PAIN/ VAG BLEED ABDO ROBIN PAIN/ VAG BLEED Active 01/31/2012 [facility] Active 2012-01-31 00:00:00 2012-01-31 19:31:00 [facility] HEMATURIA WITH URINARY RETENTION, ABDOMINAL PAIN HEMATURIA WITH URINARY RETENTION, ABDOMINAL PAIN Active 01/31/2012 [facility] Active 2012-01-31 00:00:00 2012-06-02 15:22:00 [facility] HYPERRKALEMIA, INTRACTABLE PAIN,ARF,NEUROPATHY HYPERRKALEMIA, INTRACTABLE PAIN,ARF,NEUROPATHY Active 12/30/2011 [facility] Active 2011-12-30 00:00:00 2012-01-25 07:44:00 [facility] Muscle cramps Cramps, muscle, general Problem Active [facility] Abdominal cramps Intestinal cramps Problem Active [facility] Cellulitis of right ankle Cellulitis of right ankle Problem Active [facility] Cellulitis of right foot Cellulitis of right foot Problem Active [facility] Open wound of right ankle Open wound of right ankle Problem Active [facility] Fibromyositis (disorder) Fibr omyositis (disorder) Resolved Problem 03/05/2018 [facility] Problem Resolved 2018-03-05 11: 23:26 [facility] [place] Neuropathy Neur opathy Resolved Problem 08/04/2013 [facility] Problem Resolved 2013-08-04 23:16:27 [facility] [place] Back pain Back pain Resolved Problem 09/22/2013 [facility] Problem Resolved 2013-09-22 22:09:03 Brennon Camarena ESRD (end stage renal disease) ESRD (end stage renal disease) Resolved Problem 09/22/2013 [facility] Problem Resolved 2013-09-22 22:09:03 Shahzad Camarena HTN HTN Resolved Problem 09/22/2013 [facility] Problem Resolved 2013-09-22 22:09:03 [facility] Hyperkalemia Hype rkalemia Resolved Problem 09/22/2013 [facility] Problem Resolved 2013-09-22 22:09:03 Brennon Camarena UTI [Urinary tract infection] UTI [Urinary tract infection] Resolved Problem 09/22/2013 [facility] Problem Resolved 2013-09-22 22:09:03 Brennon Camarena Acute painful diabetic neuropathy (disorder) Acute painful diabetic neuropathy (disorder) Active Problem 03/05/2018 [facility] Problem Active 2018-03-05 11:23:26 Brennon Camarena Injury of back (disorder) Inju ry of back (disorder) Active Problem 03/05/2018 [facility] Problem Active 2018-03-05 11:23:26 Brennon Camarena Backache (finding) Back ache (finding) Active Problem 03/05/2018 [facility] Problem Active 2018-03-05 11:23:26 Brennon Camarena Coronary arteriosclerosis (disorder) Coronary arteriosclerosis (disorder) Active Problem 03/05/2018 [facility] Problem Active 2018-03-05 11:23:26 Angelito Camarena Diabetes mellitus (disorder) D iabetes mellitus (disorder) Active Problem 03/05/2018 [facility] Problem Active 2018-03-05 11:23:26 Shahzad Camarena Diabetes mellitus type 2 (disorder) Diabetes mellitus type 2 (disorder) Active Problem 03/05/2018 [facility] Problem Active 2018-03-05 11:23:26 Brennon Camarena Asthenia (finding) Asth enia (finding) Active Problem 03/05/2018 [facility] Problem Active 2018-03-05 11:23:26 Brennon Camarena Hemodialysis (procedure) Hemo dialysis (procedure) Active Problem 03/05/2018 [facility] Problem Active 2018-03-05 11:23:26 Brennon Camarena Heart disease (disorder) Hear t disease (disorder) Active Problem 03/05/2018 [facility] Problem Active 2018-03-05 11:23:26 Brennon Camarena Hypertensive disorder, systemic arterial (disorder) Hypertensive disorder, systemic arterial (disorder) Active Problem 03/05/2018 [facility] Problem Active 2018-03-05 11:23:26 Brennon Camarena Malignant hypertension (disorder) Malignant hypertension (disorder) Active Problem 03/05/2018 [facility] Problem Active 2018-03-05 11:23:26 Shahzad Camarena Hyperkalemia (disorder) Hype rkalemia (disorder) Active Problem 03/05/2018 [facility] Problem Active 2018-03-05 11:23:26 Brennon Camarena Neuropathy (disorder) Neur opathy (disorder) Active Problem 03/05/2018 [facility] Problem Active 2018-03-05 11:23:26 Brennon Camarena 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) 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) Active Problem 03/05/2018 [facility] Problem Active 2018-03-05 11:23:26 Brennon Camarena Osteoarthritis (disorder) Oste oarthritis (disorder) Active Problem 03/05/2018 [facility] Problem Active 2018-03-05 11:23:26 Brennon Camarena Obesity (disorder) Obes ity (disorder) Active Problem 03/05/2018 [facility] Problem Active 2018-03-05 11:23:26 [facility] Pretransplant evaluation of kidney recipient (procedur e) Pretransplant evaluation of kidney recipient (procedure) Active Problem 03/05/2018 [facility] Problem Active 2018-03-05 11:23:26 Brennon Camarena Kidney disease (disorder) Kidn ey disease (disorder) Active Problem 03/05/2018 [facility] Problem Active 2018-03-05 11:23:26 [facility] Sleep apnea(Confirmed) Slee p apnea(Confirmed) Active Problem 03/05/2018 [facility] Problem Active 2018-03-05 11:23:2 6 [facility] Sleep apnea (finding) Slee p apnea (finding) Active Problem 03/05/2018 [facility] Problem Active 2018-03-05 11:23:26 Brennon Camarena Urinary tract infectious disease (disorder) Urinary tract infectious disease (disorder) Active Problem 03/05/2018 [facility] Problem Active 2018-03-05 11:23:26 Brennon Camarena Acute painful diabetic neuropathy Acute painful diabetic neuropathy Active Problem 08/04/2013 [facility] Problem Active 2013-08-04 23:16:27 Shahzad Camarena Back injury Back injury Active Problem 08/04/2013 [facility] Problem Active 2013-08-04 23:16:27 [facility] Back pain Back pain Active Problem 08/04/2013 [facility] Problem Active 2013-08-04 23:16:27 [facility] Cholesterol Chol esterol Active Problem 08/04/2013 [facility] Problem Active 2013-08-04 23:16:27 [facility] Diabetes mellitus Diab etes mellitus Active Problem 08/04/2013 [facility] Problem Active 2013-08-04 23:16:27 [facility] ESRD - End stage renal disease ESRD - End stage renal disease Active Problem 08/04/2013 [facility] Problem Active 2013-08-04 23:16:27 Shahzad Camarena General weakness Gene ral weakness Active Problem 08/04/2013 [facility] Problem Active 2013-08-04 23:16:27 Brennon Camarena HD - Hemodialysis HD - Hemodialysis Active Problem 08/04/2013 [facility] Problem Active 2013-08-04 23:16:27 [facility] Heart disease Hear t disease Active Problem 08/04/2013 [facility] Problem Active 2013-08-04 23:16:27 [facility] HT - Hypertension HT - Hypertension Active Problem 08/04/2013 [facility] Problem Active 2013-08-04 23:16:27 [facility] Hyperkalemia Hype rkalemia Active Problem 08/04/2013 [facility] Problem Active 2013-08-04 23:16:27 [facility] Neuropathy Neur opathy Active Problem 08/04/2013 [facility] Problem Active 2013-08-04 23:16:27 [facility] OA - Osteoarthritis OA - Osteoarthritis Active Problem 08/04/2013 [facility] Problem Active 2013-08-04 23:16:27 [facility] Renal disease Brooke l disease Active Problem 08/04/2013 [facility] Problem Active 2013-08-04 23:16:27 [facility] Sleep apnea Slee p apnea Active Problem 08/04/2013 [facility] Problem Active 2013-08-04 23:16:27 [facility] UTI - Urinary tract infection UTI - Urinary tract infection Active Problem 08/04/2013 [facility] Problem Active 2013-08-04 23:16:27 Shahzad Camarena OA - Osteoarthritis OA - Osteoarthritis Active Problem 02/18/2012 [facility] Problem Active 2012-02-18 08:39:22 [facility] Kidney dialysis Kidn ey dialysis Active Problem 08/04/2013 [facility] Problem Active 2013-08-04 23:16:27 [facility] Cholesterol (substance) Chol esterol (substance) Active Problem 06/13/2016 [facility] Problem Active 2016-06-13 01:30:34 [facility] Renal dialysis (procedure) Oscar al dialysis (procedure) Active Problem 09/22/2014 [facility] Problem Active 2014-09-22 05:42:10 [facility] Obesity Obes ity Active Problem 08/04/2013 [facility] Problem Active 2013-08-04 23:16:27 [facility] DM (diabetes mellitus)(Confirmed) DM (diabetes mellitus)(Confirmed) Active Problem 09/22/2014 [facility] Active 2014-09-22 05:42:10 [facility] hemo dialysis M W FR(Confirmed) hemo dialysis M W FR(Confirmed) Active Problem 09/22/2014 [facility] Problem Active 2014-09-22 05:42:10 [facility] Essential hypertension (disorder) Essential hypertension (disorder) Active Problem 09/22/2014 [facility] Problem Active 2014-09-22 05:42:10 [facility] OA (osteoarthritis)(Confirmed) OA (osteoarthritis)(Confirmed) Active Problem 04/25/2015 [facility] Problem Active 2015-04-25 00:56:48 Angelito Camarena Sleep apnea(Confirmed) Slee p apnea(Confirmed) Active Problem 04/25/2015 [facility] Problem Active 2015-04-25 00:56:48 [facility] hemo dialysis M W FR hemo dialysis M W FR Active Problem 12/01/2013 [facility] Problem Active 2013-12-01 21:21:3 8 [facility] HEMATURIA BRAXTON TURIA Active [facility] Diagnosis Active 2012-06-02 15:22:00 [facility] RETENTION OF URINE NOS RETE NTION OF URINE NOS Active [facility] Diagnosis Active 2012-06-02 15:22:00 [facility] MALAISE AND FATIGUE NEC DOC ISE AND FATIGUE NEC Active [facility] Diagnosis Active 2012-08-08 08:10:00 [facility] JOINT PAIN-PELVIS JOIN T PAIN-PELVIS Active [facility] Diagnosis Active 2012-11-30 09:51:00 [facility] HYPOPOTASSEMIA HYPO POTASSEMIA Active [facility] Diagnosis Active 2012-12-28 08:45:00 [facility] SCREEN MALIG NEOP-COLON SCRE EN MALIG NEOP-COLON Active [facility] Diagnosis Active 2013-06-22 11:56:00 [facility] ESOPHAGEAL REFLUX ESOP HAGEAL REFLUX Active [facility] Diagnosis Active 2013-06-22 11:56:00 [facility] MORBID OBESITY MORB ID OBESITY Active [facility] Diagnosis Active 2013-07-07 21:50:00 Me morial [place] VOMITING ALONE VOMI TING ALONE Active [facility] Diagnosis Active 2013-07-28 16:22:00 [facility] LOCALIZED ADIPOSITY LOCA LIZED ADIPOSITY Active [facility] Diagnosis Active 2013-05-31 16:22:00 [facility] NONINF GASTROENTERIT NEC [place] NF GASTROENTERIT NEC Active [facility] Active 2013-08-08 07:54:00 [facility] HYPOGLYCEMIA NOS HYPO GLYCEMIA NOS Active [facility] Active 2013-11-27 12:56:00 [facility] SYNCOPE AND COLLAPSE SYNC OPE AND COLLAPSE Active [facility] Active 2014-11-20 10:47:00 Ri morial [place] ROUTINE MEDICAL EXAM ROUT INE MEDICAL EXAM Active [facility] Diagnosis Active 2014-11-27 15:04:00 [facility] ABDMNAL PAIN OTH SPCF ST ABDM NAL PAIN OTH SPCF ST Active [facility] Active 2015-04-25 22:02:00 [facility] DIVERTICULUM OF APPENDIX DIVE RTICULUM OF APPENDIX Active [facility] Active 2016-06-09 16:28:00 [facility] OTHER SYMPTOMS AND SIGNS INVOLVING THE N OTHER SYMPTOMS AND SIGNS INVOLVING THE N Active [facility] Active 2017-11-27 07:34:00 [facility] Other symptoms and signs involving the nervous system Other symptoms and signs involving the nervous system 12/02/2017 03/05/2018 [facility] Problem 2017-12-02 04:41:42 2018-03-05 11:23:26 2018-02 11:23:26 [facility] Discharge Diagnosis: Abdominal pain Discharge Diagnosis: Abdominal pain 01/11/2015 01/13/2015 [facility] Problem 2015-01-11 05:00:00 2015-01-13 23:59:55 2015-01-13 23:59:55 [facility] Discharge Diagnosis: Abdominal pain, acute, bilateral lower quadrant Discharge Diagnosis: Abdominal pain, acute, bilateral lower quadrant 09/03/2014 09/06/2014 [facility] Problem 2014-09-03 06: 00:00 2014-09-06 01:53:18 2014-09-06 01:53:18 [facility] Discharge Diagnosis: Abdominal cramping Discharge Diagnosis: Abdominal cramping 09/03/2014 09/06/2014 [facility] 2014-09-03 06:00:00 2014-09-06 01:53:18 2014-09-06 01:53:18 [facility] Allergies, Adverse Reactions, Alerts Allergy Name Allergy Type Status Severity Reaction(s) Onset Date Inacti ve Date Treating Clinician Comments Source morphine DA Active 2019-10-30 00:00:00 [facility] hydromorphone DA Active SV 2019-10-30 00:00:00 [facility] nifedipine DA Active SV 2019-01-16 00:00:00 [facility] Hydromorphone Propensity to adverse reactions to drug Active Other (See Comments) 2019-01-11 00:00:00 Seizure-like activity per Dr Hector Garnett Morphine Propensity to adverse reactions to drug Active Other (See Comments) 2019-01-11 00:00:00 Seizure activity Bienvenido Barfield pacurly nifedipine DA Active SV 2018-05-04 00:00:00 [facility] Nifedipine Propensity to adverse reactions to drug Active Anaphylaxis 2016-12-14 00:00:00 Bienvenido Torres odist NIFEdipine NIFEdipine Active Me kris Camarena Family History Family Member Diagnosis Comments Start Date Stop Date Source Natural brother Diabetes Faria M ethodist Natural father Heart attack Bienvenido Garnett Natural mother Aneurysm [facility] Natural mother Cataracts [facility] Natural mother Heart attack Bienvenido Garnett Natural sister Diabetes [place] Me thodist Natural sister Heart attack Bienvenido Garnett Social History Social Habit Start Date Stop Date Quantity Comments Source Sex Assigned At Babar mantillamonica Garnett Alcohol intake 2019-01-12 00:00:00 2019-01-12 00:00:00 Current non-drinker of alcohol (finding) Bienvenido Garnett Social History 2014-08-02 02:32:02 2014-08-02 02:32:02 Brennon Camarena Smoking Status Start Date Stop Date Source Never smoker Bienvenido robertson Medications Ordered Medication Name Filled Medication Name Start Date Stop Da te Current Medication? Ordering Clinician Indication Dosage Frequency Signature (SIG) Comments Components Source clonIDINE (CATAPRES) 0.1 MG tablet 2019-01-14 16:27:40 Yes .1mg Q4H Take 0.1 mg by mouth every 4 (four) hours as needed for high blood pressure (SBP > 170 or DBP > 110). Bienvenido Garnett dicyclomine (BENTYL) 10 MG capsule 2019-01-14 16:27:40 Yes 10mg Q24H Take 10 mg by mouth daily as needed (abdominal cramps). Bienvenido Garnett sevelamer (RENVELA) 800 mg tablet 2019-01-14 16:27:40 Ye s 2400mg Q.[id number] Take 2,400 mg by mouth 3 (three) times a day with meals. Bienvenido Garnett insulin ASPART (NovoLOG) 100 unit/mL injection 2019-01-14 16:27: 40 Yes 30U Q.[id number] Inject 30 Units under the sk in 3 (three) times a day before meals. Bienvenido Garnett insulin detemir U-100 (LEVEMIR) 100 unit/mL injection 2019-01-14 16:27:40 Yes 16U QD Inject 16 Units under the skin every mor denise. Bienvenido Garnett insulin detemir U-100 (LEVEMIR) 100 unit/mL injection 2019-01-14 16:27:40 Yes 26U QD Inject 26 Units under the skin nightly. Bienvenido Garnett carvedilol (COREG) 3.125 MG tablet 2019-01-14 16:27:40 Yes 3.125mg Q.5D Take 3.125 mg by mouth 2 (two) times a day with meals. Bienvenido Garnett promethazine (PHENERGAN) 12.5 MG tablet 2019-01-14 16:27:40 Yes 12.5mg Q6H Take 12.5 mg by mouth every 6 (six) hours as needed fo r nausea or vomiting. Bienvenido Garnett midodrine (PROAMATINE) 5 MG tablet 2019-01-14 16:27:40 Yes 5mg Q.25W Take 5 mg by mouth 4 (four) times a week. Pt takes 5 mg on non dialysis days Tu, , Sat, and Sun Bienvenido Silveira ismarcelo midodrine (PROAMATINE) 5 MG tablet 2019-01-14 16:27:40 Y es 10mg [id number] Take 10 mg by mouth 3 (three) times a we ek. Take on Wednesday, Wednesday and Wednesday for Low BP during dialysis Bienvenido Garnett rosuvastatin (CRESTOR) 40 MG tablet 2018-12-27 00:00:00 Yes 1{tbl} Take 1 tablet by mouth daily. Faria Me wetzelodist esomeprazole (NexIUM) 20 MG capsule 2018-11-23 00:00:00 Yes 20mg QD Take 20 mg by mouth every morning. Faria thodist ezetimibe (ZETIA) 10 mg tablet 2018-11-14 00:00:00 Yes 10mg QD Take 10 mg by mouth every morning. Faria Metho dist nortriptyline (PAMELOR) 10 MG capsule 2018-10-25 00:00:00 Y es 20mg QD Take 20 mg by mouth nightly. Bienvenido ames DULoxetine (CYMBALTA) 30 MG capsule 2018-10-19 00:00:00 Yes 30mg Q.5D Take 30 mg by mouth 2 (two) times a day. Bienvenido Garnett LYRICA 150 mg capsule 2018-02-21 00:00:00 Yes 150mg Q.[id number] Take 150 mg by mouth 3 (three) times a day. Bienvenido Garnett SUMAtriptan (IMITREX) 100 MG tablet 2018-02-09 00:00:00 Yes 100mg QD Take 100 mg by mouth nightly. Bienvenido Jamil ethodist divalproex (DEPAKOTE) 500 MG 24 hr tablet 2016-11-21 00:00:00 Yes 1000mg QD Take 1,000 mg by mouth nightly. Faria Presybeterian Cefuroxime 250 MG Oral Tablet [Ceftin] 2016-06-10 22:00:00 No Notes: (Do Not Crush) With food. (Same As: Ceftin) Brennon Camarena tramadol hydrochloride 50 MG Oral Tablet 2016-06-10 18:32:00 No 50 mg = 1 tab, PO, Q6H, PRN Pain Score 4-6, # 24 tab, 0 Refill(s) Brennon Camarena saccharomyces boulardii lyo 250 mg oral capsule 2016-06-10 18:32 :00 No 250 mg = 1 cap, PO, BID, # 10 cap, 0 Refill(s) Brennon Camarena Metronidazole 500 MG Oral Tablet 2016-06-10 18:32:00 No 500 mg = 1 tab, PO, ABXQ8H, # 42 tab, 0 Refill(s) Vijay emotelma Camarena Famotidine 40 MG Oral Tablet [Pepcid] 2016-06-10 18:32:00 Y es 40 mg = 1 tab, PO, Daily, # 30 tab, 0 Refill(s) Brennon Camarena Cefuroxime 250 MG Oral Tablet [Ceftin] 2016-06-10 18:32:00 No 250 mg = 1 tab, PO, BID, # 20 tab, 0 Refill(s) Brennon Camarena Flagyl 2016-06-10 18:00:00 No Notes: (Same as: Flagyl) Take with food/ avoid alcohol Brennon Sandovalstor 2016-06-10 14:00:00 No Notes: Sunil washington Lorijoesph [facility] Famotidine 40 MG Oral Tablet [Pepcid] 2016-06-10 02:00:00 N o Notes: (Same as: Pepcid) Brennon Camarena Dilaudid 2016-06-09 16:44:00 No 0.5 mg, 0.5 mL, Route: IVP, Drug form: INJ, Q4H, Dosing Weight 94.801, kg, PRN Pain Score 7-10, Start date: 06/09/16 11:44:00 CDT, Duration: 30 day, Stop date: 07/09/16 11:43:00 CDT Brennon Camarena Insulin, Aspart, Human 2016-06-07 00:06:00 No Notes: Roll in palms of hands gently; Do not shake vigorously. (Same as: NovoLOG) "single patient use only" WASTE: F/P - Black; E - Mobile Factory Trash Bin Stable for 28 days at room temperature. Expires in days from Date [facility] Dextrose 50% Syringe 2016-06-07 00:06:00 No 25 gm, 50 mL, Route: IVP, Drug Form: INJ, Dosing Weight 94.801, kg, PRN, PRN Blood Glucose Results, Start date: 06/06/16 19:06:00 CDT, Duration: 30 day, Stop date: 07/06/16 19:05:00 CDT [facility] Glucagon 2016-06-07 00:06:00 No 1 mg, Route: IM, Drug form: PDR/INJ, PRN, Dosing Weight 94.801, kg, PRN Blood Glucose Results, Start date: 06/06/16 19:06:00 CDT, Duration: 30 day, Stop date: 07/06/16 19:05:00 CDT [facility] pneumococcal 13-valent vaccine 2016-06-06 22:30:00 No Notes: Lightly roll vial (DO NOT SHAKE) before administration. (Same as: Prevnar 13) [facility] Protonix 2016-06-06 21:30:00 No Notes: Tablet should not be chewed or crushed. (Same as: Protonix) Brennon Camarena Dilaudid 2016-06-06 16:53:00 No 0.5 mg, 0.5 mL, Route: IVP, Drug form: INJ, Q4H, Dosing Weight 94.801, kg, PRN Pain Score 7-10, Start date: 06/06/16 11:53:00 CDT, Duration: 30 day, Stop date: 07/06/16 11:52:00 CDT Brennon Camarena Sodium Bicarbonate 325 MG Oral Tablet 2016-06-06 14:00:00 N o Notes: "Dissolve tablet in a glass of water prior to oral administration. STOMACH WARNING: To avoid serious injury, do not take until tablet is completely dissolved. It is very important not to take this product when overly full from food or drink." Brennon Camarena ropinirole 2016-06-06 14:00:00 No Notes: (S jim as: Requip) Brennon Camarena Lyrica 2016-06-06 14:00:00 No Notes: (Same as: Lyrica) Brennon Camarena Nephro-Melodie 2016-06-06 14:00:00 No Notes: (Same as: Nephro-Melodie Rx and Diatx) Give with food. Brennon chadwick Midodrine 2016-06-06 14:00:00 No Notes: (Sa me as:Proamatine) Brennon Camarena Lisinopril 2016-06-06 14:00:00 No Notes: (Same as: Prinivil, Zestril) Brennon Camarena Lidocaine Hydrochloride 0.05 MG/MG Transdermal Patch [Lidode rm] 2016-06-06 14:00:00 No Notes: Akira ly only once for up to 12 hours in a 24-hour period (12 hours on and 12 hours off). (Same as: Lidoderm) "Remove old patch before application of new patch" Bren Camarena Levemir FlexPen 2016-06-06 14:00:00 No Notes: Same as Levemir Do not hold insulin without contacting prescriber WASTE: F/P - Black; E - Municipal Trash Bin "single patient use only" Praful Camarena NovoLOG 70/30 2016-06-06 14:00:00 No Notes: Roll in palms of hands gently; Do not shake vigorously. (Same as: NovoLOG Mix) "single patient use only" WASTE: F/P - Black; E - Municipal Trash Bin Stable for 14 days at room temperature Expires in days from Date Brennon Camarena gabapentin 300 MG Oral Capsule 2016-06-06 14:00:00 No Notes: (Same as: Neurontin) Brennon Camarena Nexium 2016-06-06 14:00:00 No 40 mg, Route: PO, Drug form: ECCAP, Daily, Dosing Weight 95.455, kg, Start date: 06/06/16 9:00:00 CDT, Duration: 30 day, Stop date: 07/05/16 9:00:00 CDT Praful Camarena duloxetine 2016-06-06 14:00:00 No Notes: (Same as: Cymbalta) (Do Not Crush) [facility] clopidogrel 2016-06-06 14:00:00 No Notes: ( Same As: Plavix) Brennon Camarena carvedilol 2016-06-06 14:00:00 No Notes: Give with food. (Same As: Coreg) [facility] Renvela 2016-06-06 13:00:00 No Notes: Same as: Renvela [facility] Simvastatin 2016-06-06 02:00:00 No Notes: ( Same as: Zocor) [facility] insulin detemir 2016-06-06 02:00:00 No Notes: Same as Levemir Do not hold insulin without contacting prescriber WASTE: F/P - Black; E - Municipal Trash Bin "single patient use only" [facility] mehreen Camarena 24 HR Divalproex Sodium 500 MG Extended Release Tablet [Depa kote] 2016-06-06 02:00:00 No Notes: (Sa me as: Depakote ER) (Do Not Crush) "Do Not Crush" Brennon Camarena sevelamer 2016-06-06 01:05:00 No 1,600 mg, Route: PO, Drug form: TAB, PRN, Dosing Weight 95.455, kg, PRN Dialysis, Start date: 06/05/16 20:05:00 CDT, Duration: 30 day, Stop date: 07/05/16 20:04:00 CDT [facility] Sumatriptan 2016-06-06 00:05:00 No Notes: ( Same As: Imitrex) [facility] tramadol hydrochloride 50 MG Oral Tablet 2016-06-06 00:03:00 No Notes: Not to exceed 400mg/day. (Same As: Ultram) [facility] sevelamer 2016-06-06 00:03:00 No 1,600 mg, Route: PO, Drug form: TAB, PRN, Dosing Weight 95.455, kg, PRN Dialysis, Start date: 06/05/16 19:03:00 CDT, Duration: 30 day, Stop date: 07/05/16 19:02:00 CDT [facility] Promethazine 2016-06-06 00:03:00 No Notes: (Same as: Phenergan) [facility] cyclobenzaprine 2016-06-06 00:02:00 No Notes: (Same As: Flexeril) [facility] Rocephin 2016-06-05 21:00:00 No Notes: (Same As: Rocephin). Use with 100 mL NS and infuse over 30 min MEDICATION WASTE Product Size: 1000 mg Product Wasted: ___ mg [facility] Esomeprazole 40 MG Enteric Coated Capsule [Nexium] 2016-05 20:49:00 Yes 40 mg = 1 cap, PO, Daily, # 30 cap, 0 Re fill(s) [facility] Promethazine 2016-06-05 20:49:00 Yes 0.5, PO , PRN, 0 Refill(s) [facility] Sodium Bicarbonate 325 MG Oral Tablet 2016-06-05 20:49:00 Y es PO, TID, 0 Refill(s) [facility] gabapentin 300 MG Oral Capsule 2016-06-05 20:49:00 Yes 300 mg = 1 cap, PO, BID, # 90 cap, 1 Refill(s) Angelito rial [place] lisinopril 10 mg oral tablet 2016-06-05 20:49:00 Yes 10 mg = 1 tab, PO, Daily, # 30 tab, 0 Refill(s) Prafuloria l [place] cyclobenzaprine 2016-06-05 20:49:00 Yes 5 mg, PO, TID, PRN Muscle spasm, # 30 tab, 0 [facility] 325 MG / Hydrocodone Bitartrate 5 MG Oral Tabl et [[place] 5/325] 2016-06-05 20:42:00 No Notes: (Same as: [place] 325/5) Do not exceed 4gm/day of acetaminophen. [facility] Candie nn Streptococcus pneumoniae serotype 1 caps ular antigen diphtheria [id number] protein conjugate vaccine / Streptococcus pneumoniae serotype 14 capsular antigen diphtheria [id number] protein conjugate vaccine / Streptococcus pneumoniae serotype 18C capsular antigen d 2016-06-05 20:00:00 No Notes: Lightly roll vial (DO NOT SHAKE) before administration. (Same as: Prevnar 13) [facility] Ondansetron 2016-06-05 17:31:00 No Notes: (Same as: Natalya) MEDICATION WASTE Product Size: 4 mg Product Wasted: ___ mg [facility] Acetaminophen 2016-06-05 17:31:00 No Notes: Do not exceed 4 gm/day. (Same as: Tylenol) [facility] Flagyl 2016-06-05 17:08:00 No Notes: (Same as: Edwar) Avoid alcohol. [facility] Cipro 2016-06-05 17:08:00 No Notes: Do not refrigerate [facility] Zofran 2016-06-05 16:22:00 No 4 mg, Route: IVP, Drug form: INJ, ONCE, Dosing Weight 95.455, kg, Priority: STAT, Start date: 06/05/16 11:22:00 CDT, Stop date: 06/05/16 11:22:00 [facility] 2016-06-05 11:44:00 No 0.5 mg, Route: IVP, ONCE, Dosing Weight 95.455, kg, Priority: STAT, Start date: 06/05/16 6:44:00 CDT, Stop date: 06/05/16 6:44:00 CDT [facility] Ondansetron 2016-06-05 11:44:00 No 4 mg, Route: IVP, ONCE, Dosing Weight 95.455, kg, Priority: STAT, Start date: 06/05/16 6:44:00 CDT, Stop date: 06/05/16 6:44:00 CDT [facility] Saline Flush 0.9% 2016-06-05 11:44:00 No Notes: (Same as: BD Posiflush) [facility] Pantoprazole Sodium (Protonix) 40 Mg Tablet., 40 Mg Oral Pantoprazole Sodium (Protonix) 40 Mg Tablet.dr, 40 Mg Oral 2015-08-15 00:00:00 2017-06-21 00:00:00 No Shun Morris Md 40 Twice A Day [facility] Sucralfate (Carafate) 1 Gm Tablet, 1 Gm Oral Sucralfat e (Carafate) 1 Gm Tablet, 1 Gm Oral 2015-08-15 00:00:00 2017-06-21 00:00:00 No Shun Morris Md 1 Before Meals And At Bedtime [facility] duloxetine 2015-04-19 02:00:00 No Notes: (Same as: Cymbalta) (Do Not Crush) [facility] Simvastatin 2015-04-17 02:00:00 No Notes: ( Same as: Zocor) [facility] insulin detemir 2015-04-17 02:00:00 No Notes: Same as Levemir Do not hold insulin without contacting prescriber "single patient use only" [facility] 24 HR Divalproex Sodium 500 MG Extended Release Tablet [Depa kote] 2015-04-17 02:00:00 No Notes: (Sa me as: Depakote ER) Once daily dosing; indicated for migraines. Divalproex sodium extended-release tab. Do not chew or crush. "Do Not Crush" [facility] Ativan 2015-04-16 20:27:00 No Notes: (Same as: Ativan) [facility] ropinirole 2015-04-16 14:00:00 No Notes: (S jim as: Requip) [facility] Lyrica 2015-04-16 14:00:00 No Notes: (Same as: Lyrica) [facility] Nephro-Melodie 2015-04-16 14:00:00 No Notes: (Same as: Nephro-Melodie Rx and Diatx) Give with food. [facility] chadwick Midodrine 2015-04-16 14:00:00 No Notes: (Sa me as:Proamatine) [facility] NovoLOG 70/30 2015-04-16 14:00:00 No Notes: Roll in palms of hands gently; Do not shake vigorously. (Same as: NovoLOG Mix) "single patient use only" Stable for 14 days at room temperature Expires in days from Date [facility] Levemir FlexPen 2015-04-16 14:00:00 No Notes: Same as Levemir Do not hold insulin without contacting prescriber "single patient use only" [facility] clopidogrel 2015-04-16 14:00:00 No Notes: ( Same As: Plavix) [facility] duloxetine 2015-04-16 14:00:00 No Notes: (Same as: Cymbalta) (Do Not Crush) [facility] carvedilol 2015-04-16 14:00:00 No Notes: Give with food. (Same As: Coreg) [facility] Renvela 2015-04-16 13:00:00 No Notes: Same as: Renvela [facility] heparin 2015-04-16 13:00:00 No Notes: porci ne heparin [facility] Insulin, Aspart, Human 2015-04-16 12:04:00 No Notes: Roll in palms of hands gently; Do not shake vigorously. (Same as: NovoLOG) "single patient use only" Stable for 28 days at room temperature. Expires in days from Date [facility] Dextrose 50% Syringe 2015-04-16 12:04:00 No 12.5 gm, 25 mL, Route: IVP, Drug Form: INJ, Dosing Weight 80.909, kg, PRN, PRN Blood Glucose Results, Start date: 04/16/15 7:04:00, Duration: 30 day, Stop date: 05/16/15 7:03:00 [facility] Glucagon 2015-04-16 12:04:00 No 1 mg, Route: IM, Drug form: PDR/INJ, PRN, Dosing Weight 80.909, kg, PRN Blood Glucose Results, Start date: 04/16/15 7:04:00, Duration: 30 day, Stop date: 05/16/15 7:03:00 [facility] tramadol hydrochloride 50 MG Oral Tablet 2015-04-16 11:52:00 No Notes: Not to exceed 400mg/day. (Same As: Ultram) Brennon Camarena Dilaudid 2015-04-16 03:01:00 No 0.5 mg, 0.5 mL, Route: IV, Drug form: INJ, Q4H, Dosing Weight 80.909, kg, PRN Pain Score 7-10, Start date: 04/15/15 22:01:00, Duration: 30 day, Stop date: 05/15/15 22:00:00 Brennon Camarena Zofran 2015-04-16 03:01:00 No Notes: (Same as: Natalya) MEDICATION WASTE Product Size: 4 mg Product Wasted: ___ mg Brennon Camarena Morphine 2015-04-16 01:38:00 No Not es: (Same as:MORPhine Sulfate) Brennon Camarena Acetaminophen 325 MG / Hydrocodone Bitartrate 5 MG Oral Tabl et 2015-04-16 01:38:00 No Notes: (Sa me as: [place] 325/5) Do not exceed 4gm/day of acetaminophen. Brennon Camarena sevelamer 800 mg oral tablet 2015-04-16 01:09:00 Yes 1,600 mg = 2 tab, PO, PRN, PRN Other -See Comment, # 180 tab, 0 Refill(s) Brennon Camarena 3 ML insulin detemir 100 UNT/ML Prefilled Syringe [Levemir] 2015-04-16 01:08:00 Yes 60 unit, SUB-Q, Bedtime, # 1 pen(s), 3 Refill(s) Brennon Camarena 3 ML insulin detemir 100 UNT/ML Prefilled Syringe [Levemir] 2015-04-16 01:07:00 Yes 16 unit, SUB-Q, Daily, # 1 pe n(s), 0 Refill(s) Brennon Fayann 24 HR Divalproex Sodium 500 MG Extended Release Tablet [Depa kote] 2015-04-16 01:06:00 Yes 500 mg = 1 tab, PO, Bedtime, # 60 tab, 1 Refill(s) Brennon Camarena Zofran 2015-04-15 21:55:00 No 4 mg, Route: IVP, Drug form: INJ, ONCE, Dosing Weight 84.8, kg, Priority: STAT, Start date: 04/15/15 16:55:00, Stop date: 04/15/15 16:55:00 [facility] arabella Dilaudid 2015-04-15 21:55:00 No 0.5 mg, Route: IVP, ONCE, Dosing Weight 84.8, kg, Priority: STAT, Start date: 04/15/15 16:55:00, Stop date: 04/15/15 16:55:00 [facility] Dilaudid 2015-04-15 18:35:00 No 0.5 mg, Route: IVP, ONCE, Dosing Weight 84.8, kg, Priority: STAT, Start date: 04/15/15 13:35:00, Stop date: 04/15/15 13:35:00 Brennon [facility] Ondansetron 2015-04-15 18:08:00 No Notes: (Same as: Natalya) MEDICATION WASTE Product Size: 4 mg Product Wasted: ___ mg [facility] Morphine 2015-04-15 18:08:00 No Not es: (Same as:MORPhine Sulfate) [facility] Saline Flush 0.9% 2015-04-15 18:08:00 No Notes: (Same as: BD Posiflush) [facility] Morphine 2015-01-11 16:35:00 No 4 mg, Route: IVP, Drug form: INJ, ONCE, Dosing Weight 77.273, kg, Priority: STAT, Start date: 01/11/15 11:35:00, Stop date: 01/11/15 11:35:00 [facility] 2015-01-11 14:27:00 No 4 mg, Route: IVP, Drug form: INJ, ONCE, Dosing Weight 77.273, kg, Priority: STAT, Start date: 01/11/15 9:27:00, Stop date: 01/11/15 9:27:00 [facility] Her chadwick Zofran 2015-01-11 12:13:00 No Notes: (Same as: Zofran) [facility] pregabalin 75 MG Oral Capsule [Lyrica] 2014-11-27 22:47:00 Yes 75 mg = 1 cap, PO, BID, # 90 cap, 0 Refill(s) [facility] Lidocaine Hydrochloride 0.05 MG/MG Transdermal Patch [Lidode rm] 2014-11-27 22:47:00 Yes 0 Refill(s) Praful orial [place] tramadol hydrochloride 50 MG Oral Tablet 2014-11-27 22:47:00 Yes 0 Refill(s) Brennon Camarena rOPINIRole 0.25 mg oral tablet 2014-11-27 22:47:00 Yes 0 Refill(s) Brennon Camarena midodrine 10 mg oral tablet 2014-11-27 22:47:00 Yes 0 Refill(s) Brennon Camarena NovoLOG 70/30 2014-11-27 20:11:00 Yes 26 unit, SUB-Q, 0 Refill(s) Brennon Camarena simvastatin 10 mg oral tablet 2014-11-27 20:11:00 Yes 10 mg = 1 tab, PO, Bedtime, # 30 tab, 0 Refill(s) Angelito drewl [place] DULoxetine 20 mg oral delayed release capsule 2014-11-27 20:11:0 0 Yes 0 Refill(s) Brennon Camarena Vital-D 2014-11-02 21:52:00 Yes Special Instructions: D3 2000u po qd [facility] sevelamer carbonate 800 MG Oral Tablet [Renvela] 2014-11-02 21:49:00 Yes Special Instructions: 3w/ meals and 1/ smack Brennon Camarena 72 HR Scopolamine 0.0139 MG/HR Transdermal Patch 2014-11-02 21:48:00 Yes Special Instructions: 1 patch q3 days Brennon Camarena carvedilol 3.125 mg oral tablet 2014-11-02 21:46:00 Yes 0 Refill(s) Brennon Camarena Promethazine Hydrochloride 12.5 MG Oral Tablet [Phenergan] 2014-11-02 21:44:00 Yes Special Instructions: prn q8hrs for n/v Brennon Camarena cyclobenzaprine 10 mg oral tablet 2014-11-02 21:42:00 Yes Special Instructions: prn [facility] Nephro-Melodie 2014-11-02 21:41:00 Yes Special Instructions: qd Brennon Camarena diazepam 5 mg oral tablet 2014-09-19 16:40:00 Yes 5 mg = 1 tab, PO, QID, Muscle Spasms, # 5 tab, 0 Refill(s) [facility] Diazepam 2014-09-19 16:39:00 No 5 mg, Route: IVP, Drug form: INJ, ONCE, Dosing Weight 84.007, kg, Priority: STAT, Start date: 09/19/14 10:39:00, Stop date: 09/19/14 10:39:00 [facility]drom[facility] 2014-09-19 15:59:00 No 0.5 mg, Route: IVP, ONCE, Dosing Weight 84.007, kg, Priority: STAT, Start date: 09/19/14 9:59:00, Stop date: 09/19/14 9:59:00 [facility] Ondansetron 2014-09-19 15:47:00 No 4 mg, Route: IVP, Drug form: INJ, ONCE, Dosing Weight 84.007, kg, Priority: STAT, Start date: 09/19/14 9:47:00, Stop date: 09/19/14 9:47:00 [facility] Hydromorphone 2014-09-19 13:23:00 No 0.5 mg, Route: IVP, ONCE, Dosing Weight 84.007, kg, Priority: STAT, Start date: 09/19/14 7:23:00, Stop date: 09/19/14 7:23:00 [facility] Sodium Chloride 0.154 MEQ/ML Injectable Solution 2014-09-19 13:2 2:00 No 500 mL, 500 ml/hr, Infuse Ov er: 1 Hour, Route: IV, ONCE, Priority: STAT, Dosing Weight 84.007 kg, Start date: 09/19/14 7:22:00, Duration: 1 doses or times, Stop date: 09/19/14 7:22:00 Shahzad tello [place] Ondansetron 2014-09-19 13:22:00 No 4 mg, Route: IVP, Drug form: INJ, ONCE, Dosing Weight 84.007, kg, Priority: STAT, Start date: 09/19/14 7:22:00, Stop date: 09/19/14 7:22:00 [facility] netta Bentyl 2014-09-03 15:30:00 No 20 mg, Route: PO, ONCE, Dosing Weight 77.273, kg, Priority: STAT, Start date: 09/03/14 9:30:00, Stop date: 09/03/14 9:30:00 [facility] Morphine 2014-09-03 15:30:00 No 2 mg, Route: IVP, Drug form: INJ, ONCE, Dosing Weight 77.273, kg, Priority: STAT, Start date: 09/03/14 9:30:00, Stop date: 09/03/14 9:30:00 [facility] Ondansetron 4 MG Oral Tablet [Zofran] 2014-09-03 14:52:00 Y es 4 mg = 1 tab, PO, Q8H, # 10 tab, 0 Refill(s) Vijay [facility] Acetaminophen 300 MG / Codeine Phosphate 30 MG Oral Tablet [Tylenol with Codeine #3] 2014-09-03 14:52:00 Yes 1 - 2 tab, PO, Q4H, Pain, # 20 tab, 0 Refill(s) [facility] Dicyclomine Hydrochloride 20 MG Oral Tablet [Bentyl] 2 14:52:00 Yes 20 mg = 1 tab, PO, QID, # 28 tab, 0 Refi ll(s) [facility] Ketorolac 2014-09-03 14:19:00 No 30 mg, Route: IVP, Drug form: INJ, ONCE, Dosing Weight 77.273, kg, Priority: STAT, Start date: 09/03/14 8:19:00, Stop date: 09/03/14 8:19:00 [facility] Morphine 2014-09-03 14:18:00 No 4 mg, Route: IVP, Drug form: INJ, ONCE, Dosing Weight 77.273, kg, Priority: STAT, Start date: 09/03/14 8:18:00, Stop date: 09/03/14 8:18:00 [facility] Ondansetron 2014-09-03 12:46:00 No 4 mg, Route: IVP, ONCE, Dosing Weight 77.273, kg, Priority: STAT, Start date: 09/03/14 6:46:00, Stop date: 09/03/14 6:46:00 [facility] Morphine 2014-09-03 12:46:00 No 4 mg, Route: IVP, ONCE, Dosing Weight 77.273, kg, Priority: STAT, Start date: 09/03/14 6:46:00, Stop date: 09/03/14 6:46:00 [facility] Saline Flush 0.9% 2014-09-03 12:46:00 No Notes: (Same as: BD Posiflush) Brennon Camarena Midodrine 2014-08-03 14:00:00 No Notes: (Sa me as:Proamatine) Brennon Camarena have RPh verify & bar pt own Midrin caps (C-IV) 2014-08-02 21:00 :00 No have RPh verify & bar pt own Midrin caps (C-IV), 1 attn notice, Drug form: MISC, Route: MISC, TID, 08/02/14 16:00:00, Duration: 30 day, Stop date: 09/01/14 8:00:00 Brennon Camarena Morphine 2014-08-02 17:00:00 No 4 mg, Route: IV, Q4H, Dosing Weight 72.273, kg, Start date: 08/02/14 12:00:00, Duration: 30 day, Stop date: 09/01/14 8:00:00 Brennon Camarena Morphine 2014-08-02 15:35:00 No Not es: (Same as:MORPhine Sulfate) Brennon Camarena Ascorbic Acid / Biotin / Folic Acid / Ni acin / pantothenate / pyridoxine / Riboflavin / Thiamine / Vitamin B 12 2014-08-02 14:00:00 No Notes: (Same as:One Tab Daily, Tab-A-Melodie + Beta Carotene) Give with food. Brennon Camarena Nitroglycerin 0.4 MG Sublingual Tablet 2014-08-02 06:07:00 No Notes: (Same as:Nitroquick, Nitrostat) "Do Not Crush" Sublingual tablet Brennon Camarena Atropine 2014-08-02 06:06:00 No 0.5 mg, 5 mL, Route: IVP, Drug form: INJ, PRN, Dosing Weight 72.273, kg, PRN Bradycardia, Start date: 08/02/14 1:06:00, Duration: 30 day, Stop date: 09/01/14 0:05:00, symptomatic bradycardia, HR <40/minute Brennon Camarena NS 250 mL 2014-08-02 04:52:00 No 250 mL, Rate: 30 ml/hr, Infuse over: 8.3 hr, Route: IV, Dosing Weight 72.273 kg, Total Volume: 250, Priority: NOW, Start date: 08/01/14 23:52:00, Duration: 30 day, Stop date: 08/31/14 23:51:00 [facility] [place] Topamax 2014-08-02 02:00:00 No Notes: (Same As: Topamax) "Do Not Crush" [facility] [place] Simvastatin 2014-08-02 02:00:00 No Notes: ( Same as: Zocor) [facility] Levemir 2014-08-02 02:00:00 No Notes: Same as Levemir "single patient use only" [facility] duloxetine 2014-08-02 02:00:00 No Notes: (Same as: Cymbalta) (Do Not Crush) [facility] Renvela 2014-08-01 22:00:00 No Notes: Same as: Renvela [facility] ropinirole 2014-08-01 22:00:00 No Notes: (S jim as: Requip) [facility] Lyrica 2014-08-01 22:00:00 No Notes: (Same as: Lyrica) [facility] oxybutynin 2014-08-01 22:00:00 No Notes: Sa me as: Ditropan) [facility] NovoLOG 70/30 2014-08-01 22:00:00 No Notes: Roll in palms of hands gently; Do not shake vigorously. (Same as: NovoLOG Mix) "single patient use only" Stable for 14 days at room temperature Expires in days from Date [facility] gabapentin 300 MG Oral Capsule 2014-08-01 22:00:00 No Notes: (Same as: Neurontin) [facility] tramadol hydrochloride 50 MG Oral Tablet 2014-08-01 19:01:00 No Notes: Not to exceed 400mg/day. (Same As: Ultram) [facility] Promethazine 2014-08-01 19:00:00 No Notes: (Same as: Phenergan) [facility] Midrin 2014-08-01 19:00:00 No Notes: (Same as: Midrin) [facility] sevelamer carbonate 800 MG Oral Tablet [Renvela] 2014-08-01 18:14:00 Yes 1,600 mg = 2 tab, PO, PRN, With Snack [facility] Ascorbic Acid 60 MG / Calcium Pantothena te 10 MG / D-BIOTIN 0.3 MG / Folic Acid 0.8 MG / Niacinamide 20 MG / pyridoxine 10 MG / Riboflavin 1.7 MG / Thiamine 1.5 MG / Vitamin B 12 0.006 MG Oral Tablet [Brooke-Melodie] 2014-08-01 18:1 3:00 Yes 1 tab, PO, Daily [facility] [place] NovoLOG 70/30 2014-08-01 18:13:00 Yes 26 uni t, SUB-Q, TID-Meals [facility] insulin detemir 100 UNT/ML Injectable Solution [Levemir] 2014-08-01 18:11:00 Yes = 60 unit, SUB-Q, Bedtime [facility] [place] DULoxetine 20 mg oral delayed release capsule 2014-08-01 18:10:0 0 Yes 20 mg = 1 cap, PO, [facility] [place] gabap[facility] 100 MG Oral Capsule 2014-08-01 17:59:00 No Notes: (Same as: Neurontin) [facility] Benadryl 2014-08-01 17:48:00 No 25 mg, Route: IVP, ONCE, Dosing Weight 77.273, kg, Priority: STAT, Start date: 08/01/14 12:48:00, Stop date: 08/01/14 12:48:00 [facility] [place] Reglan 2014-08-01 17:48:00 No 10 mg, Route: IVP, Drug form: INJ, ONCE, Dosing Weight 77.273, kg, Priority: STAT, Start date: 08/01/14 12:48:00, Stop date: 08/01/14 12:48:00 [facility] [place] Dilaudid 2014-08-01 17:08:00 No 0.5 mg, Route: IVP, ONCE, Dosing Weight 77.273, kg, Priority: STAT, Start date: 08/01/14 12:08:00, Stop date: 08/01/14 12:08:00 [facility] Dextrose 50% Syringe 2014-08-01 15:07:00 No 12.5 gm, 25 mL, Route: IVP, Drug Form: INJ, Dosing Weight 77.273, kg, PRN, PRN Blood Glucose Results, Start date: 08/01/14 10:07:00, Duration: 30 day, Stop date: 08/31/14 9:06:00 [facility] Glucagon 2014-08-01 15:07:00 No 1 mg, Route: IM, Drug form: PDR/INJ, PRN, Dosing Weight 77.273, kg, PRN Blood Glucose Results, Start date: 08/01/14 10:07:00, Duration: 30 day, Stop date: 08/31/14 9:06:00 [facility] Insulin, Aspart, Human 2014-08-01 15:07:00 No Notes: Roll in palms of hands gently; Do not shake vigorously. (Same as: NovoLOG) "single patient use only" Stable for 28 days at room temperature. Expires in days from Date [facility] Ondansetron 2014-08-01 15:06:00 No Notes: ( Same as: Zofran) [facility] Morphine 2014-08-01 15:06:00 No Not es: (Same as:MORPhine Sulfate) [facility] Dilaudid 2014-08-01 14:12:00 No 0.5 mg, Route: IVP, ONCE, Dosing Weight 77.273, kg, Priority: STAT, Start date: 08/01/14 9:12:00, Stop date: 08/01/14 9:12:00 [facility] Morphine 2014-08-01 13:08:00 No 4 mg, Route: IVP, ONCE, Dosing Weight 77.273, kg, Start date: 08/01/14 8:08:00, Stop date: 08/01/14 8:08:00 [facility] Fentanyl 2014-08-01 12:15:00 No 50 microgram, Route: IVP, ONCE, Dosing Weight 77.273, kg, Priority: STAT, Start date: 08/01/14 7:15:00, Stop date: 08/01/14 7:15:00 [facility] Zofran 2014-08-01 12:15:00 No 4 mg, Route: IVP, Drug form: INJ, ONCE, Dosing Weight 77.273, kg, Priority: STAT, Start date: 08/01/14 7:15:00, Stop date: 08/01/14 7:15:00 [facility] netta cosyntropin 2013-11-26 20:00:00 No Enoch Joseph 0.25 mg, Route: IVP, Drug form: PDR/INJ, ONCE, Dosing Weight 72.273, kg, Start date: 11/26/13 14:00:00, Stop date: 11/26/13 14:00:00(Same As: Cortrosyn) [facility] Maxipime + Sodium Chloride 0.9% IV 100 mL 2013-11-25 02:00 :00 No Zaher Shebib 1 gm, Route: IVP B, [id number], Start date: 11/24/13 20:00:00, Duration: 30 day, Stop date: 12/23/13 20:00:00(Same As: Maxipime) [facility] vancomycin 2013-11-25 00:33:00 No Danielito Setoudeh 1 gm, 200 mL, Route: IVPB, Drug form: INJ, Q-M-W-F, Start date: 11/24/13 18:33:00, Duration: 30 day, Stop date: 12/22/13 21:00:[address] [facility] morphine Sulfate 2013-11-24 23:28:00 No Taso Mougouris 2 mg, 1 mL, Route: IVP, Drug form: INJ, Q4H, Dosing Weight 72.273, kg, PRN Pain, Start date: 11/24/13 17:28:00, Duration: 30 day, Stop date: 12/24/13 17:27:00(Same as:MORPhine Sulfate) [facility] Cortrosyn 2013-11-23 21:00:00 No Amir A Rowley 0.25 mg, Route: IVP, Drug form: PDR/INJ, ONCE, Start date: 11/23/13 15:00:00, Stop date: 11/23/13 15:00:00(Same As: Cortrosyn) [facility] sodium chloride 2013-11-23 21:00:00 No Amir A Rowley 2 mL, Route: MISC, Start date: 11/23/13 15:00:00, Stop date: 11/23/13 15:00:00preservative free. [facility] Haldol 2013-11-23 12:37:00 No Octavio Mauro 1 mg, 0.2 mL, Route: IM, Drug form: INJ, Q6H, Dosing Weight 72.273, kg, PRN Agitation, Start date: 11/23/13 6:37:00, Duration: 30 day, Stop date: 12/23/13 6:36:00(Same as: Haldol) [facility] Haldol 2013-11-23 12:36:00 No Octavio Mauro 1 mg, 0.2 mL, Route: IV, Drug form: INJ, Q6H, Dosing Weight 72.273, kg, PRN Agitation, Start date: 11/23/13 6:36:00, Duration: 30 day, Stop date: 12/23/13 6:35:00(Same as: Haldol) [facility] cloNIDine 0.1 mg oral tablet 2013-11-23 12:35:00 No Tigre harth Mauro 0.1 mg, 1 tab, Route: PO, Drug form: TAB, Q6H, Dosing Weight 72.273, kg, PRN See Nurse's Notes, Start date: 11/23/13 6:35:00, Duration: 30 day, Stop date: 12/23/13 6:34:00, prn systolic B/P > 160(Same As: Catapres) [facility] 2013-11-22 22:47:00 No Taso Mougouris 2 mg, 0.4 mL, Route: IM, Drug form: INJ, ONCE, Dosing Weight 72.273, kg, PRN Hallucinations, Start date: 11/22/13 16:47:00, Stop date: 12/22/13 16:46:00(Same as: Haldol) [facility] hydrocortisone 2013-11-22 02:00:00 No Ramdas Nell Kuma r 10 mg, 1 tab, Route: PO, Drug form: TAB, Q8PM, Dosing Weight 72.273, kg, Start date: 11/21/13 20:00:00, Duration: 30 day, Stop date: 12/20/13 20:00:00(Same as: Cortef) Take with food. [facility] hydrocortisone 2013-11-21 02:00:00 No Ramdas Nell Kuma r 5 mg, 1 tab, Route: PO, Drug form: TAB, Q8PM, Dosing Weight 72.273, kg, Start date: 11/20/13 20:00:00, Duration: 30 day, Stop date: 12/19/13 20:00:00(Same as: Cortef) [facility] Epogen (ESRD) 2013-11-20 23:00:00 No Enoch Joseph 15,000 unit, 0.75 mL, Route: SUB-Q, Drug form: INJ, Q-M-W-F, Dosing Weight 72.273, kg, Start date: 11/20/13 17:00:00, Duration: 30 day, Stop date: 12/18/13 17:00:00(Same as: Procrit) epoetin shilpi 09477 unit/1 ml VL [facility] ketorolac 30 mg/mL injectable solution 2013-11-20 19:26:00 No Enoch Joseph 30 mg, 1 mL, Rou te: IV, Drug form: INJ, Q6H, Dosing Weight 72.273, kg, PRN as needed for pain, Start date: 11/20/13 13:26:00, Duration: 4 day, Stop date: 11/24/13 13:25:00(Same as:Toradol) IV bolus must be given >15 seconds. Give IM administration slowly and deeply into the muscle. Not for use > 4 days [facility] ketorolac 30 mg/mL injectable solution 2013-11-20 00:00:00 No Enoch Joseph 30 mg, 1 mL, Rou te: IV, Drug form: INJ, Q6H, Dosing Weight 72.273, kg, Start date: 11/19/13 18:00:00, Duration: 4 day, Stop date: 11/23/13 12:00:00(Same as:Toradol) IV bolus must be given >15 seconds. Give IM administration slowly and deeply into the muscle. Not for use > 4 days [facility] Phenergan + Sodium Chloride 0.9% IV 50 mL 2013-11-18 17:54 :00 No Jonathan Vogel 25 mg, 1 mL, R oute: IVPB, Q4H, PRN Nausea & Vomiting, Start date: 11/18/13 11:54:00, Duration: 30 day, Stop date: 12/18/13 11:53:00Do not give IV push. 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 blood product administration, Dosing Weight 72.273, kg, Route: IV, Total Volume: 250, Start Date: 11/17/13 9:22:00, Duration: 30 day, Stop date: 12/17/13 9:21:00, Replace Every: 24 hr Brennon Camarena d50 syringe 2013-11-17 15:20:00 No Enoch Nell Joseph 25 gm, 50 mL, Route: IV, Drug Form: INJ, Dosing Weight 72.273, kg, PRN, PRN See Respiratory Notes, Start date: 11/17/13 9:20:00, Duration: 30 day, Stop date: 12/17/13 9:19:00, blood glucose <40 Brennon kennedy Robaxin + Sodium Chloride 0.9% IV 240 mL 2013-11-17 06:00: 00 No Taso Mougouris 1,000 mg, 10 mL, Route: IV, Drug form: INJ, Q8H, Dosing Weight 72.273, kg, Start date: 11/17/13 0:00:00, Duration: 30 day, Stop date: 12/16/13 16:00:00(Same as:Robaxin) Brennon Faya nn Imodium A-D 2013-11-17 00:00:00 No Taso Mougouris 4 mg, 2 cap, Route: PO, Drug form: CAP, Q6H, Dosing Weight 72.273, kg, Start date: 11/16/13 18:00:00, Duration: 30 day, Stop date: 12/16/13 12:00:00(Same as: Imodium) MAX adult dose is 8 caps/day [facility] Rico n Robaxin + Sodium Chloride 0.9% IV 240 mL 2013-11-16 23:56: 00 No Taso Mougouris 1,000 mg, 10 mL, Route: IV, Drug form: INJ, Q8H, Dosing Weight 72.273, kg, PRN Muscle Spasms, Start date: 11/16/13 17:56:00, Duration: 30 day, Stop date: 12/16/13 17:55:00(Same as:Robaxin) Brennon Camarena Imodium A-D 2013-11-16 23:46:00 No Taso Mougouris 2 mg, 10 mL, Route: PO, Drug form: LIQ, Q6H, Dosing Weight 72.273, kg, PRN Diarrhea, Start date: 11/16/13 17:46:00, Duration: 30 day, Stop date: 12/16/13 17:45:00(Same as: Imodium) Brennon Camarena Imodium A-D 2013-11-16 23:45:00 No Taso Mougouris 4 mg, 20 mL, Route: PO, Drug form: LIQ, Q6H, Dosing Weight 72.273, kg, PRN Diarrhea, Start date: 11/16/13 17:45:00, Duration: 30 day, Stop date: 12/16/13 17:44:00(Same as: Imodium) Brennon Camarena Robaxin + Sodium Chloride 0.9% IV 240 mL 2013-11-16 18:45: 00 No Taso Mougouris 1,000 mg, 10 mL, Route: IV, Drug form: INJ, ONCE, Dosing Weight 72.273, kg, Start date: 11/16/13 12:45:00, Stop date: 11/16/13 12:45:00(Same as:Robaxin) Brennon Camarena hydrocortisone 5 mg oral tablet 2013-11-16 18:42:00 Yes Enoch Camejo Joseph 10 mg = 2 tab, PO, Daily, # 90 tab, 0 Refill(s) Brennon Camarena hydrocortisone 2013-11-16 15:00:00 No Enoch Pham r 10 mg, 1 tab, Route: PO, Drug form: TAB, QAM, Dosing Weight 72.273, kg, Start date: 11/16/13 9:00:00, Duration: 30 day, Stop date: 12/15/13 9:00:00(Same as: Cortef) Take with food. Brennon Camarena nystatin topical 100,000 units/g powder 2013-11-15 23:00:0 0 No Taso Mougouris 1 appl, Route: T OP, QID, Drug form: PWDR, Start date: 11/15/13 17:00:00, Duration: 30 day, Stop date: 12/15/13 13:00:00(Same as:Mycostatin, Nilstat) For external use only. [facility] [place] hydrocortisone 2013-11-15 20:00:00 No Ramwallace Ballda Kuma r 5 mg, 1 tab, Route: PO, Drug form: TAB, Q2PM, Dosing Weight 72.273, kg, Start date: 11/15/13 14:00:00, Stop date: 12/14/13 14:00:00(Same as: Cortef) [facility] Protonix 2013-11-15 13:30:00 No Taso Mougouris 40 mg, 1 tab, Route: PO, Drug form: ECTAB, Before Breakfast, Start date: 11/15/13 7:30:00, Duration: 30 day, Stop date: 12/14/13 7:30:00Tablet should not be chewed or crushed. (Same as: Protonix) [facility] pantoprazole 2013-11-14 13:30:00 No Taso Mougouris 40 mg, Route: PO, Drug form: INJ, Before Breakfast, Dosing Weight 72.273, kg, Start date: 11/14/13 7:30:00, Duration: 30 day, Stop date: 12/13/13 7:30:00For IV push reconstitute with 10 ml 0.9% sodium chloride and push over 2 minutes. (Same as: Protonix) [facility] carvedilol 2013-11-14 03:00:00 No Taso Mougouris 3.125 mg, Route: PO, Drug form: TAB, Q12H, Dosing Weight 72.273, kg, Start date: 11/13/13 21:00:00, Duration: 30 day, Stop date: 12/13/13 9:00:00 [facility] Topamax 2013-11-14 03:00:00 No Taso Mougouris 50 mg, 2 tab, Route: PO, Drug form: TAB, Bedtime, Dosing Weight 72.273, kg, Start date: 11/13/13 21:00:00, Duration: 30 day, Stop date: 12/12/13 21:00:00(Same As: Topamax) "Do Not Crush" [facility] simvastatin 2013-11-14 03:00:00 No Taso Mougouris 10 mg, Route: PO, Drug form: TAB, Bedtime, Dosing Weight 72.273, kg, Start date: 11/13/13 21:00:00, Duration: 30 day, Stop date: 12/12/13 21:00:00 [facility] 2013-11-13 23:00:00 No Taso Mougouris 2,400 mg, 3 tab, Route: PO, Drug form: TAB, TID-Meals, Dosing Weight 72.273, kg, Start date: 11/13/13 17:00:00, Duration: 30 day, Stop date: 12/13/13 12:00:00Same as: Renvela [facility] Epogen (ESRD) 2013-11-13 23:00:00 No Enoch Joseph 10,000 unit, 1 mL, Route: SUB-Q, Drug form: INJ, Q-M-W-F, Dosing Weight 72.273, kg, Start date: 11/13/13 17:00:00, Duration: 30 day, Stop date: 12/11/13 17:00:00(Same as: Procrit) epoetin shilpi 40671 unit/1 ml VL. [facility] Lyrica 2013-11-13 23:00:00 No Taso Mougouris 75 mg, 1 cap, Route: PO, Drug form: CAP, BID, Dosing Weight 72.273, kg, Start date: 11/13/13 17:00:00, Duration: 30 day, Stop date: 12/13/13 9:00:00(Same as: Lyrica) [facility] oxybutynin 2013-11-13 23:00:00 No Taso Mougouris 5 mg, 1 tab, Route: PO, Drug form: TAB, BID, Dosing Weight 72.273, kg, Start date: 11/13/13 17:00:00, Duration: 30 day, Stop date: 12/13/13 9:00:00Same as: Ditropan) [facility] gabapentin 300 mg oral capsule 2013-11-13 23:00:00 No T aso Mougouris 300 mg, 1 cap, Route: PO, Drug form: CAP, BID, Dosing Weight 72.273, kg, Start date: 11/13/13 17:00:00, Duration: 30 day, Stop date: 12/13/13 9:00:00(Same as: Neurontin) [facility] carvedilol 2013-11-13 23:00:00 No Ramwallace Ballda Joseph 3.125 mg, 1 tab, Route: PO, Drug form: TAB, BID, Dosing Weight 72.273, kg, Start date: 11/13/13 17:00:00, Duration: 30 day, Stop date: 12/13/13 9:00:00Give with food. (Same As: Coreg) [facility] rOPINIRole 2013-11-13 19:00:00 No Taso Mougouris 0.25 mg, 1 tab, Route: PO, Drug form: TAB, TID, Dosing Weight 72.273, kg, Start date: 11/13/13 13:00:00, Duration: 30 day, Stop date: 12/13/13 9:00:00(Same as: Requip) [facility] tramadol 50 mg oral tablet 2013-11-13 19:00:00 No Taso Mougouris 50 mg, 1 tab, Route: PO, Drug form: TAB, TID, Dosing Weight 72.273, kg, Start date: 11/13/13 13:00:00, Duration: 30 day, Stop date: 12/13/13 9:00:00Not to exceed 400mg/day. (Same As: Ultram) [facility] promethazine 2013-11-13 18:22:00 No Taso Mougouris 25 mg, 1 tab, Route: PO, Drug form: TAB, Q8H, Dosing Weight 72.273, kg, PRN as needed for nausea/vomiting, Start date: 11/13/13 12:22:00, Duration: 30 day, Stop date: 12/13/13 12:21:00(Same as: Phenergan) [facility]-13 18:22:00 No Taso Mougouris 5 mg, Route: PO, Drug form: TAB, BID, Dosing Weight 72.273, kg, PRN, Start date: 11/13/13 12:22:00, Duration: 30 day, Stop date: 12/13/13 12:21:00, urinary spasm [facility] [place] Nitrostat 0.4 mg sublingual tablet 2013-11-13 18:21:00 N o Taso Mougouris 0.4 mg, 1 tab, Route: Dr NIEVES ug form: TAB, Q5Min, Dosing Weight 72.273, kg, PRN as needed for chest pain, Start date: 11/13/13 12:21:00, Duration: 30 day, Stop date: 12/13/13 12:20:00(Same as:Nitroquick, Nitrostat) "Do Not Crush" Sublingual tablet [facility] midodrine 2013-11-13 18:21:00 No Taso Mougouris 10 mg, 2 tab, Route: PO, Drug form: TAB, During Dialysis, Dosing Weight 72.273, kg, PRN Hypotension, Start date: 11/13/13 12:21:00, Duration: 30 day, Stop date: 12/13/13 12:20:00(Same as:Proamatine) [facility] Flexeril 2013-11-13 18:21:00 No Taso Mougouris 5 mg, 0.5 tab, Route: PO, Drug form: TAB, PRN, Dosing Weight 72.273, kg, PRN Muscle Spasms, Start date: 11/13/13 12:21:00, Duration: 30 day, Stop date: 12/13/13 12:20:00(Same As: Flexeril) [facility] Ambien 2013-11-12 23:09:00 No Bertha Seerangan 5 mg, 1 tab, Route: PO, Drug form: TAB, Bedtime, Dosing Weight 72.273, kg, PRN Insomnia, Start date: 11/12/13 17:09:00, Duration: 30 day, Stop date: 12/12/13 17:08:00(Same As: Ambien) [facility] Phenergan 2013-11-12 15:14:00 No Dorene Le Jr 25 mg, 1 mL, Route: IVP Central, Drug form: INJ, Q4H, Dosing Weight 72.273, kg, PRN Nausea & Vomiting, Start date: 11/12/13 9:14:00, Duration: 30 day, Stop date: 12/12/13 9:13:00Do not give IV push. (Same as: Phenergan) [facility] sterile water 300 mL + Dextrose 50% in Water IV 100 gm 2013-11-12 01:13:00 No Joselowallace Nelladelfo Joseph 300 mL, 6 0 ml/hr, Route: IVP, Drug Form: INJ, Dosing Weight 72.273, kg, Start date: 11/11/13 19:13:00, Duration: 30 day, Stop date: 12/11/13 19:12:00 Brennon Camarena D20W 500 mL 2013-11-12 00:40:00 No Bertha Seerangan 500 mL, Rate: 60 ml/hr, Infuse over: 8.3 hr, Route: IV, Dosing Weight 72.273 kg, Total Volume: 500, Start date: 11/11/13 18:40:00, Stop date: 12/12/13 18:39:00 [facility] Phenergan 2013-11-11 20:33:00 No Dorene Le Jr 25 mg, 1 mL, Route: IM, Drug form: INJ, Q6H, Dosing Weight 72.273, kg, PRN Nausea & Vomiting, Start date: 11/11/13 14:33:00, Duration: 30 day, Stop date: 12/11/13 14:32:00Do not give IV push. (Same as: Phenergan) Angel[facility] Fayann Phenergan 2013-11-11 19:18:00 No Dorene Le Jr 25 mg, 1 tab, Route: PO, Drug form: TAB, Q4H, Dosing Weight 72.273, kg, PRN Nausea & Vomiting, Start date: 11/11/13 13:18:00, Duration: 30 day, Stop date: 12/11/13 13:17:00(Same as: Phenergan) [facility] promethazine 25 mg oral tablet 2013-11-11 18:09:00 Yes T aso Mougouris 25 mg = 1 tab, PO, Q8H, as needed for nausea/vomiting, 0 Refill(s) [facility] oxybutynin 5 mg oral tablet 2013-11-11 18:09:00 Yes Taso Mougouris 5 mg = 1 tab, PO, BID, Other-See Comments, # 30 tab, 0 Refill(s) [facility] Levemir FlexPen 2013-11-11 18:09:00 No 16 units in AM, 70 units in PM, SUB-Q, BID, 0 Refill(s) Brennon chadwick tramadol 50 mg oral tablet 2013-11-11 18:09:00 Yes Taso Mougouris See Instructions, TID, 1 tab, 0 Refill(s)1 tab Brennon Camarena simvastatin 10 mg oral tablet 2013-11-11 18:09:00 Yes Ta so Mougouris 10 mg = 1 tab, PO, Bedtime, # 30 tab, 0 Refill(s) Brennon Camarena carvedilol 3.125 mg oral tablet 2013-11-11 18:09:00 Yes Taso Mougouris 3.125 mg = 1 tab, PO, BID, on days witho ut HD, # 180 tab, 0 Refill(s)on days without HD Brennon Camarena midodrine 10 mg oral tablet 2013-11-11 18:09:00 Yes 10 mg = 1 tab, PO, 0 Refill(s) Brennon Camarena NovoLOG Mix 70/30 FlexPen 2013-11-11 18:09:00 No 30 units breakfast, 26 units lunch, 30 units dinne, 0 Refill(s) Brennon Camarena rOPINIRole 0.25 mg oral tablet 2013-11-11 18:09:00 Yes T aso Mougouris 0.25 mg = 1 tab, PO, TID, # 90 tab, 0 Refill(s) Brennon Camarena Topomax 2013-11-11 18:09:00 Yes Topomax, 50 mg =, PO, Bedtime, Refill(s) 0 [facility] Flexeril 5 mg oral tablet 2013-11-11 18:09:00 Yes See Instructions, Muscle Spasms, 0 Refill(s) Brennon kennedy morphine Sulfate 2013-11-11 03:08:00 No Fran galeana 2 mg, 1 mL, Route: IVP, Drug form: INJ, Q4H, Dosing Weight 72.273, kg, PRN Pain, Start date: 11/10/13 21:08:00, Duration: 30 day, Stop date: 12/10/13 21:07:00(Same as:MORPhine Sulfate) Brennon Camarena pantoprazole 2013-11-10 15:00:00 No Taso Mougouris 40 mg, Route: IVP, Drug form: INJ, Daily, Dosing Weight 75, kg, Priority: Routine, Start date: 11/10/13 9:00:00, Duration: 30 day, Stop date: 12/09/13 9:00:00For IV push reconstitute with 10 ml 0.9% sodium chloride and push over 2 minutes. (Same as: Protonix) [facility] nitroglycerin 0.4 mg sublingual tablet 2013-11-10 12:27:00 No Jonathan Kruegerian Jaspreet 0.4 mg, 1 tab, R oute: SL, Drug form: TAB, Q5Min, PRN Chest Pain, Start date: 11/10/13 6:27:00, Duration: 30 day, Stop date: 12/10/13 6:26:00(Same as:Nitroquick, Nitrostat) "Do Not Crush" Sublingual tablet [facility] atropine 2013-11-10 12:26:00 No Jonathan Presybeterian Jaspreet 0.5 mg, 5 mL, Route: IVP, Drug form: INJ, PRN, PRN Bradycardia, Start date: 11/10/13 6:26:00, Duration: 30 day, Stop date: 12/10/13 6:25:00 [facility] Zofran 2013-11-10 12:15:00 No Jonathan Presybeterian Jaspreet 4 mg, 2 mL, Route: IV, Drug form: INJ, Q4H, Dosing Weight 75, kg, PRN as needed for nausea/vomiting, Start date: 11/10/13 6:15:00, Duration: 30 day, Stop date: 12/10/13 6:14:00(Same as: Zofran) [facility] acetaminophen 2013-11-10 12:15:00 No Taso Mougouris 650 mg, 20.3 mL, Route: PO, Drug form: LIQ, Q4H, Dosing Weight 75, kg, PRN Pain 1-3/Temp > 100.4 F, Start date: 11/10/13 6:15:00, Stop date: 12/10/13 6:14:00Max acetaminophen = 4000mg/day (4 gm/day). (Same as: Tylenol) [facility] acetaminophen-hydrocodone 325 mg-5 mg oral tablet 12:15:00 No Fran Young 1 tab, Rou te: PO, Drug Form: TAB, Dosing Weight 75, kg, Q4H, PRN Pain Score 1-3, Start date: 11/10/13 6:15:00, Duration: 30 day, Stop date: 12/10/13 6:14:00(Same as: [place] 325/5) Do not exceed 4gm/day of acetaminophen. [facility] docusate 2013-11-10 12:15:00 No Jonathan Vogel 100 mg, 1 cap, Route: PO, Drug form: CAP, BID, Dosing Weight 75, kg, PRN Constipation, Start date: 11/10/13 6:15:00, Duration: 30 day, Stop date: 12/10/13 6:14:00(Same as: Colace) (Do Not Crush) [facility] sodium chloride 154 mEq + Dextrose 10% in Water IV 961.5 mL 2013-11-10 10:12:00 No Bertha Seerangan 961 .5 mL, Rate: 100 ml/hr, Infuse over: 10 hr, Route: IV, Dosing Weight 75 kg, Total Volume: 1,000, Start date: 11/10/13 4:12:00, Stop date: 12/10/13 4:11:00 Mem orial Monroe [id number] 1000 mL 2013-11-10 10:08:00 No Marco Gutierrez Stepan 1,000 mL, Rate: 125 ml/hr, Infuse over: 8 hr, Route: IV, Dosing Weight 75 kg, Total Volume: 1,000, Start date: 11/10/13 4:08:00, Duration: 30 day, Stop date: 12/10/13 4:07:00 [facility] Flagyl 2013-08-10 19:00:00 No Enayet Rahim 500 mg, 1 tab, Route: PO, Drug form: TAB, ABXQ8H, Dosing Weight 89.5, kg, Start date: 08/10/13 14:00:00, Duration: 30 day, Stop date: 09/09/13 6:00:00(Same as: Flagyl) Take with food/ avoid alcohol [facility] influenza virus vaccine, inactivated 2013-08-10 16:00:00 No SYSTEM SYSTEM 0.5 ml, Route: IM, Drug Form : SUSP, Start date: 08/10/13 11:00:00, Stop date: 08/10/13 11:00:00 Brennon Camarena Neutra-Phos 2013-08-10 15:14:00 No Enoch Joseph 1 pkt, Route: PO, Drug Form: PDR/REC, Dosing Weight 89.5, kg, ONCE, Start date: 08/10/13 10:14:00, Stop date: 08/10/13 10:14:00(Same as: Neutra-Phos) Each 1.25 gm pkt has 250mg phosphorous. Mix w/2.5oz water and stir. Brennon Camarena ciprofloxacin 250 mg oral tablet 2013-08-10 13:00:08 Yes Enayet Rahim 250 mg, 1 tab, PO, [id number], 20 tab, Substitution Allowed, TAB Brennon Camarena Cipro 2013-08-10 13:00:00 No Enayet Rahim 250 mg, 1 tab, Route: PO, Drug form: TAB, [id number], Dosing Weight 89.5, kg, Start date: 08/10/13 8:00:00, Duration: 30 day, Stop date: 09/08/13 20:00:00May interfere w/enteral feedings - Take 1 hr before or 2 hrs after antacids, dairy pdt & minerals. On empty stomach. Brennon Camarena Flagyl 500 mg oral tablet 2013-08-10 12:59:55 Yes Enayet Rahim 500 mg, 1 tab, PO, ABXQ8H, 30 tab, Substitution Allowed, TAB Brennon Camarena Neurontin 2013-08-09 22:00:00 No Enoch Joseph 100 mg, 1 cap, Route: PO, Drug form: CAP, TID, Dosing Weight 89.5, kg, Start date: 08/09/13 17:00:00, Duration: 30 day, Stop date: 09/08/13 13:00:00(Same as: Neurontin) Brennon Camarena Protonix 2013-08-09 21:30:00 No Enayet Rahim 40 mg, 1 tab, Route: PO, Drug form: ECTAB, Before Dinner, Start date: 08/09/13 16:30:00, Duration: 30 day, Stop date: 09/07/13 16:30:00Tablet should not be chewed or crushed. (Same as: Protonix) [facility] Epo (ESRD) 2013-08-09 14:00:00 No Enoch Joseph 3,000 unit, Route: SUB-Q, Q-M-W-F, Dosing Weight 92.869, kg, Start date: 08/09/13 9:00:00, Duration: 30 day, Stop date: 09/08/13 8:59:00 [facility] Dilaudid 2013-08-09 02:03:00 No Sharon Dent Candace 1 mg, 1 mL, Route: IV, Drug form: INJ, Q3H, Dosing Weight 92.869, kg, PRN Pain Score 4-6, Start date: 08/08/13 21:03:00, Duration: 30 day, Stop date: 09/07/13 21:02:00 [facility] Epo (ESRD) 2013-08-07 14:00:00 No Bertha Martin 3,000 unit, 1 mL, Route: SUB-Q, Drug form: INJ, Q-M-W-F, Dosing Weight 81.818, kg, Start date: 08/07/13 9:00:00, Duration: 30 day, Stop date: 09/06/13 8:59:00(Same as: Procrit) epoetin shilpi 3000 unit/1 ml VL. [facility] potassium chloride 2013-08-07 10:44:00 No Bertha Barrera sagrario 40 mEq, 2 tab, Route: PO, Drug form: ERTAB, ONCE, Dosing Weight 92.869, kg, Priority: NOW, Start date: 08/07/13 5:44:00, Stop date: 08/07/13 5:44:00(Same as: K-Dur 20) "Do Not Crush" With food and full glass of water [facility] Protonix 2013-08-06 21:30:00 No Enayet Rahim 40 mg, Route: IVP, Drug form: INJ, Before Dinner, Dosing Weight 81.818, kg, Patient is NPO, Start date: 08/06/13 16:30:00, Duration: 30 day, Stop date: 09/05/13 16:29:00For IV push reconstitute with 10 ml 0.9% sodium chloride and push over 2 minutes. (Same as: Protonix) [facility] Cipro 2013-08-06 21:00:00 No Ramdas Nell Joseph 400 mg, 200 mL, Route: IVPB, Drug form: INJ, [id number], Start date: 08/06/13 16:00:00, Duration: 30 day, Stop date: 09/05/13 20:59:00Do not refrigerate [facility] potassium chloride 2013-08-06 15:49:00 No Bertha Barrera sagrario 20 mEq, 1 tab, Route: PO, Drug form: ERTAB, ONCE, Dosing Weight 81.818, kg, Start date: 08/06/13 10:49:00, Stop date: 08/06/13 10:49:00(Same as: K-Dur 20) "Do Not Crush" With food and full glass of water [facility] ropinirole 2013-08-06 14:00:00 No Enayet Rahim 0.25 mg, 1 tab, Route: PO, Drug form: TAB, TID, Dosing Weight 81.818, kg, Start date: 08/06/13 9:00:00, Duration: 30 day, Stop date: 09/05/13 8:59:00(Same as: Requip) [facility] Lyrica 2013-08-06 14:00:00 No Ramdas Nell Joseph 75 mg, 1 cap, Route: PO, Drug form: CAP, BID, Dosing Weight 81.818, kg, Start date: 08/06/13 9:00:00, Duration: 30 day, Stop date: 09/05/13 8:59:00(Same as: Lyrica) [facility] oxybutynin 2013-08-06 14:00:00 No Enayet Rahim 5 mg, 1 tab, Route: PO, Drug form: TAB, BID, Dosing Weight 81.818, kg, Start date: 08/06/13 9:00:00, Duration: 30 day, Stop date: 09/05/13 8:59:00Same as: Ditropan) [facility] gabapentin 300 mg oral capsule 2013-08-06 14:00:00 No Ramdas Nell Joseph 300 mg, 1 cap, Route: PO, Dr ug form: CAP, BID, Dosing Weight 81.818, kg, Start date: 08/06/13 9:00:00, Duration: 30 day, Stop date: 09/05/13 8:59:00(Same as: Neurontin) [facility] Oscarvela 2013-08-06 13:00:00 No Ramdas Nell Joseph 2,400 mg, 3 tab, Route: PO, Drug form: TAB, TID-Meals, Dosing Weight 81.818, kg, Start date: 08/06/13 8:00:00, Duration: 30 day, Stop date: 09/05/13 7:59:00Same as: [facility] heparin 2013-08-06 05:00:00 No Enayet Rahim 5,000 unit, 1 mL, Route: SUB-Q, Drug form: INJ, Q8H, Dosing Weight 81.818, kg, Start date: 08/06/13 0:00:00, Duration: 30 day, Stop date: 09/04/13 23:59:00porcine heparin [facility] Topamax 2013-08-06 02:00:00 No Enayet Rahim 50 mg, 2 tab, Route: PO, Drug form: TAB, Bedtime, Dosing Weight 81.818, kg, Start date: 08/05/13 21:00:00, Duration: 30 day, Stop date: 09/04/13 20:59:00(Same As: Topamax) "Do Not Crush" [facility] simvastatin 2013-08-06 02:00:00 No Enayet Rahim 10 mg, 1 tab, Route: PO, Drug form: TAB, Bedtime, Dosing Weight 81.818, kg, Start date: 08/05/13 21:00:00, Duration: 30 day, Stop date: 09/04/13 20:59:00(Same as: Zocor) [facility] carvedilol 2013-08-06 02:00:00 No Bertha Seerangan 3.125 mg, 1 tab, Route: PO, Drug form: TAB, Q12H, Dosing Weight 81.818, kg, Start date: 08/05/13 21:00:00, Duration: 30 day, Stop date: 09/04/13 20:59:00Give with food. (Same As: Coreg) [facility] nitroglycerin 0.4 mg sublingual tablet 2013-08-05 23:28:00 No Enayet Rahim 0.4 mg, 1 tab, Route : SL, Drug form: TAB, Q5Min, PRN Chest Pain, Start date: 08/05/13 18:28:00, Duration: 30 day, Stop date: 09/04/13 17:27:00(Same as:Nitroquick, Nitrostat) "Do Not Crush" Sublingual tablet [facility] atropine 2013-08-05 23:28:00 No Enayet Rahim 0.5 mg, 5 mL, Route: IVP, Drug form: INJ, PRN, PRN Bradycardia, Start date: 08/05/13 18:28:00, Duration: 30 day, Stop date: 09/04/13 17:27:[address] [facility] insulin aspart 2013-08-05 23:18:00 No Enayet Rahim 12 unit, 0.12 mL, Route: SUB-Q, Drug form: SOLN, TID-Before Meals, Dosing Weight 81.818, kg, PRN Blood Glucose Results, Start date: 08/05/13 18:18:00, Duration: 30 day, Stop date: 09/04/13 18:17:00Roll in palms of hands gently; Do not shake vigorously. (Same as: NovoLog) "single patient use only" Stable for 28 days at room temperature. Expires in days from Date [facility] glucagon 2013-08-05 23:18:00 No Enayet Rahim 1 mg, Route: IM, Drug form: PDR/INJ, PRN, Dosing Weight 81.818, kg, PRN Blood Glucose Results, Start date: 08/05/13 18:18:00, Duration: 30 day, Stop date: 09/04/13 17:17:00 [facility] Dextrose 50% Syringe 2013-08-05 23:18:00 No Enayet Rahi m 25 gm, 50 mL, Route: IVP, Drug Form: INJ, Dosing Weight 81.818, kg, PRN, PRN Blood Glucose Results, Start date: 08/05/13 18:18:00, Duration: 30 day, Stop date: 09/04/13 17:17:00 [facility] Dilaudid 2013-08-05 23:17:00 No Enayet Rahim 2 mg, 2 mL, Route: IV, Drug form: INJ, Q3H, Dosing Weight 81.818, kg, PRN Pain Score 7-10, Start date: 08/05/13 18:17:00, Duration: 30 day, Stop date: 09/04/13 18:16:00 [facility] midodrine 2013-08-05 23:14:00 No Enayet Rahim 10 mg, 2 tab, Route: PO, Drug form: TAB, During Dialysis, Dosing Weight 81.818, kg, PRN Bradycardia, Start date: 08/05/13 18:14:00, Duration: 30 day, Stop date: 09/04/13 17:13:00(Same as:Proamatine) [facility] Nitrostat 0.4 mg sublingual tablet 2013-08-05 23:14:00 N o Enayet Rahim 0.4 mg, 1 tab, Route: SL, Drug form: TAB , Q5Min, Dosing Weight 81.818, kg, PRN as needed for chest pain, Start date: 08/05/13 18:14:00, Duration: 30 day, Stop date: 09/04/13 17:13:00 [facility] potassium chloride 2013-08-05 22:57:00 No Bertha Bradfordan sagrario 20 mEq, 1 tab, Route: PO, Drug form: ERTAB, ONCE, Dosing Weight 81.818, kg, Start date: 08/05/13 17:57:00, Stop date: 08/05/13 17:57:00(Same as: K-Dur 20) "Do Not Crush" With food and full glass of water [facility] ondansetron 2013-08-05 22:33:00 No Enayet Rahim 4 mg, 2 mL, Route: IVP, Drug form: INJ, Q8H, Dosing Weight 81.818, kg, PRN Nausea & Vomiting, Start date: 08/05/13 17:33:00, Duration: 30 day, Stop date: 09/04/13 17:32:00(Same as: Zofran) [facility] acetaminophen 2013-08-05 22:33:00 No Enayet Rahim 650 mg, 20.3 mL, Route: PO, Drug form: LIQ, Q4H, Dosing Weight 81.818, kg, PRN Pain 1-3/Temp > 100.4 F, Start date: 08/05/13 17:33:00, Duration: 30 day, Stop date: 09/04/13 17:32:00Max acetaminophen = 4000mg/day (4 gm/day). (Same as: Tylenol) [facility] Flagyl 2013-08-05 22:33:00 No Enayet Rahim 500 mg, 100 mL, Route: IVPB, Drug form: INJ, Q6H, Dosing Weight 81.818, kg, Priority: STAT, Start date: 08/05/13 17:33:00, Duration: 30 day, Stop date: 09/04/13 6:00:00(Same as: yl) Avoid alcohol. [facility] Cipro 2013-08-05 22:33:00 No Enayet Rahim 400 mg, Route: IVPB, Q12H, Dosing Weight 81.818, kg, Priority: STAT, Start date: 08/05/13 17:33:00, Duration: 30 day, Stop date: 09/04/13 17:32:00 [facility] ondansetron 2013-08-05 22:04:00 No Shelrandi ford 4 mg, Route: IVP, Drug form: INJ, ONCE, Dosing Weight 81.818, kg, Start date: 08/05/13 17:04:00, Stop date: 08/05/13 17:04:00 [facility] Cipro 2013-08-05 21:02:00 No Shelrandi Larry Narayanan 400 mg, Route: IVPB, ONCE, Dosing Weight 81.818, kg, Start date: 08/05/13 16:02:00, Stop date: 08/05/13 16:02:00 [facility] Flagyl 2013-08-05 21:01:00 No Shelise Juancarlos Narayanan 500 mg, Route: IVPB, ONCE, Dosing Weight 81.818, kg, PRN, Start date: 08/05/13 16:01:00, stat [facility] Novolog Mix 70/30 PenFill subcutaneous suspension 2013-08-05 20:25:39 Yes 4-12 units, SUB-Q, S liding Scale, PRN, 4 units (BS 180-200) 8 units (BS 201-250) 10 units (BS 251-300) 12 units (BS 301-400), blood glucose, Substitution Allowed4 units (BS 180-200) 8 units (BS 201-250) 10 units (BS 251- 300) 12 units (BS 301-400) [facility] Sumeet kennedy Topamax 50 mg oral tablet 2013-08-05 20:24:51 Yes Enayet Rahim 50 mg, 1 tab, PO, Bedtime, 60 tab, Substitution Allowed, TAB [facility] Nitrostat 0.4 mg sublingual tablet 2013-08-05 20:24:34 Y es Enayet Rahim 0.4 mg, 1 tab, SL, Q5Min, PRN, 100 tab, Chest Pain, Substitution Allowed [facility] Migue Midrin 2013-08-05 20:23:46 Yes 1 cap, PO, PRN, PRN, migraine headache, Substitution Allowed, Maintenance [facility] Flexeril 5 mg oral tablet 2013-08-05 20:23:02 Yes 5 mg, 1 tab, PO, PRN, PRN, muscle spasms, Substitution Allowed [facility] midodrine 10 mg oral tablet 2013-08-05 20:22:03 Yes 10 mg, 1 tab, PO, During Dialysis, Dialysis M-W-F, 270 tab, Substitution Allowed, TABDialysis M-W-F [facility] Lyrica 75 mg oral capsule 2013-08-05 20:21:43 Yes Enayet Rahim 75 mg, 1 cap, PO, BID, 90 cap, Substitution Allowed, CAP [facility] gabapentin 300 mg oral capsule 2013-08-05 20:21:17 Yes E nayet Rahim 300 mg, 1 cap, PO, BID, 90 cap, Substitution Allowed [facility] Zofran 2013-08-05 14:11:00 No Severino Chantal 4 mg, Route: IVP, Drug form: INJ, ONCE, Dosing Weight 81.818, kg, Priority: STAT, Start date: 08/05/13 9:11:00, Stop date: 08/05/13 9:11:00 [facility] mehreen Camarena morphine Sulfate 2013-08-05 12:09:00 No Severino Chantal 4 mg, Route: IVP, ONCE, Dosing Weight 81.818, kg, Priority: STAT, Start date: 08/05/13 7:09:00, Stop date: 08/05/13 7:09:00 [facility] mehreen Camarena ondansetron 2013-08-05 12:09:00 No Severino Chantal 4 mg, Route: IVP, ONCE, Dosing Weight 81.818, kg, Priority: STAT, Start date: 08/05/13 7:09:00, Stop date: 08/05/13 7:09:00 [facility] Saline Flush 0.9% 2013-08-05 12:09:00 No Enayet Rahim 5 mL, Route: IVP, Drug Form: INJ, Dosing Weight 81.818, kg, PRN, PRN Line Flush, Start date: 08/05/13 7:09:00, Duration: 24 hr, Stop date: 08/06/13 7:08:00(Same as: BD Posiflush) [facility] morphine Sulfate 2013-08-03 23:05:00 No Michelet Narayanan 4 mg, Route: IVP, Drug form: INJ, ONCE, Dosing Weight 88, kg, Priority: STAT, Start date: 08/03/13 18:05:00, Stop date: 08/03/13 18:05:00 [facility] pantoprazole 40 mg oral enteric coated tablet 2013-08-03 2 2:39:35 No Michelet Narayanan 40 mg, 1 tab, P O, Daily, 30 tab, Substitution Allowed, ECTAB [facility] Vicodin 5/500 oral tablet 2013-08-03 22:38:51 Yes Enayet Rahim 1-2 tablets, PO, Q4-6H, PRN, 30 tab, for Pain, Substitution Allowed, Maintenance [facility] Phenergan 25 mg oral tablet 2013-08-03 22:38:22 Yes Enay et Rahim 25 mg, 1 tab, PO, Q4H, PRN, 25 tab, Nausea, Substitution Allowed [facility] Carafate 1 g oral tablet 2013-08-03 22:38:07 No She eder Juancarlos Narayanan 1 gm, 1 tab, PO, QID-Before Meals, 120 tab, Substitution Allowed Brennon Camarena Phenergan 2013-08-03 21:57:00 No Ailynrandi Gracia s 25 mg, Route: IM, ONCE, Dosing Weight 88, kg, Priority: STAT, Start date: 08/03/13 16:57:00, Stop date: 08/03/13 16:57:00 [facility] Pratik bell Dextrose 50% Syringe 2013-08-03 21:40:00 No Michelet culp Oracio 25 gm, Route: IVP, Dosing Weight 88, kg, ONCE, STAT, Start date: 08/03/13 16:40:00, Stop date: 08/03/13 16:40:00 [facility] 2013-08-03 20:49:00 No Michelet Narayanan 4 mg, Route: IVP, Drug form: INJ, ONCE, Dosing Weight 88, kg, Priority: STAT, Start date: 08/03/13 15:49:00, Stop date: 08/03/13 15:49:00 [facility] Migue Saline Flush 0.9% 2013-08-03 20:17:00 No Michelet Moore 5 mL, Route: IVP, Drug Form: INJ, Dosing Weight 88, kg, PRN, PRN Line Flush, Start date: 08/03/13 15:17:00, Duration: 24 hr, Stop date: 08/04/13 15:16:00(Same as: BD Posiflush) [facility] Migue ondansetron 2013-08-03 20:17:00 No Michelet ford 4 mg, Route: IVP, ONCE, Dosing Weight 88, kg, Priority: STAT, Start date: 08/03/13 15:17:00, Stop date: 08/03/13 15:17:00 momo Camarena Carafate 1 g oral tablet 2013-07-30 16:34:18 No Taso Mo ugouris 1 gm, 1 tab, PO, QID-Before Meals, 120 tab, Substitution Allowed, TAB [facility] Migue Phenergan 25 mg oral tablet 2013-07-30 16:33:54 No Taso Mougouris 25 mg, PO, Q4H, PRN, 30 tab, Allergic reaction, Substitution Allowed, TAB [facility] Migue Phenergan 2013-07-30 16:33:00 No Taso Mougouris 25 mg, 1 tab, Route: PO, Drug form: TAB, Q4H, Dosing Weight 90.909, kg, PRN Allergic reaction, Start date: 07/30/13 11:33:00, Duration: 30 day, Stop date: 08/29/13 11:32:00(Same as: Phenergan) [facility] Carafate 1 g/10 mL oral suspension 2013-07-28 18:00:00 No Ezequiel Enriquez 1 gm, 1 tab, Rou te: PO, Drug form: TAB, QID-Before Meals, Dosing Weight 90.909, kg, Start date: 07/28/13 13:00:00, Stop date: 08/27/13 11:30:00May interfere w/enteral feeds - Take 1 hr before or 2 hr after antacids, dairy pdt, meals & minerals - On empty stomach. (Same As: Carafate) [facility] morphine Sulfate 2013-07-27 16:32:00 No Ramdas Nell Ku mar 2 mg, 1 mL, Route: IVP, Drug form: INJ, Q6H, Dosing Weight 90.909, kg, PRN Pain Score 6-10, Start date: 07/27/13 11:32:00, Duration: 30 day, Stop date: 08/26/13 11:31:00(Same as:MORPhine Sulfate) Shahzad tello [place] morphine Sulfate 2013-07-27 16:31:00 No Ramdas Nell Ku mar 2 mg, Route: IVP, Q4H, Dosing Weight 90.909, kg, PRN Pain, Start date: 07/27/13 11:31:00, Duration: 30 day, Stop date: 08/26/13 11:30:00 Brennon Camarena Reglan 2013-07-27 05:00:00 No Ramdas Nell Joseph 5 mg, 1 mL, Route: IV, Drug form: INJ, Q6H, Start date: 07/27/13 0:00:00, Duration: 30 day, Stop date: 08/25/13 18:00:00(Same as: Reglan) [facility] epoetin shilpi 2013-07-26 22:00:00 No Enoch Joseph 2,000 unit, 1 mL, Route: SUB-Q, Drug form: INJ, Q-M-W-F, Start date: 07/26/13 17:00:00, Duration: 30 day, Stop date: 08/23/13 17:00:00(Same as: Procrit) epoetin shilpi 2000 unit/1 ml VL [facility] Epogen (ESRD) 2013-07-26 22:00:00 No Enoch Joseph 3,000 unit, 1 mL, Route: SUB-Q, Drug form: INJ, Q-M-W-F, Dosing Weight 90.909, kg, Start date: 07/26/13 17:00:00, Duration: 30 day, Stop date: 08/23/13 17:00:00(Same as: Procrit) epoetin shilpi 3000 unit/1 ml VL. [facility] Reglan 10 mg oral tablet 2013-07-26 21:30:00 No Enoch Joseph 10 mg, 1 tab, Route: PO, Drug form: TAB, TID-Before Meals, Dosing Weight 90.909, kg, Start date: 07/26/13 16:30:00, Duration: 30 day, Stop date: 08/25/13 11:30:00(Same as: Reglan) Take 30 min before meals [facility] NS 1,000 mL 2013-07-25 19:44:00 No Enoch Joseph 1,000 mL, Rate: 40 ml/hr, Infuse over: 25 hr, Route: IV, Dosing Weight 90.909 kg, Total Volume: 1,000, Start date: 07/25/13 14:44:00, Duration: 1 day, Stop date: 07/26/13 14:43:00 [facility] Novolog Mix 70/30 PenFill 2013-07-25 17:00:00 No Callum orr 26 unit, 0.26 mL, Route: SUB-Q, Drug form: INJ, Lunch, Dosing Weight 90.909, kg, Start date: 07/25/13 12:00:00, Duration: 30 day, Stop date: 08/23/13 12:00:00Roll in palms of hands gently; Do not shake vigorously. (Same as: NovoLog Mix) "single patient use only" Stable for 14 days at room temperature Expires in days from Date [facility] insulin detemir 2013-07-25 14:00:00 No Taso Mougouris 16 unit, 0.16 mL, Route: SUB-Q, Drug form: INJ, QAM, Dosing Weight 90.909, kg, Start date: 07/25/13 9:00:00, Duration: 30 day, Stop date: 08/23/13 9:00:00Same as Levemir "single patient use only" [facility] nn Novolog Mix /30 PenFill 2013-07-25 13:00:00 No Taso M ougouris 30 unit, 0.3 mL, Route: SUB-Q, Drug form: INJ, Breakfast, Dosing Weight 90.909, kg, Start date: 07/25/13 8:00:00, Duration: 30 day, Stop date: 08/23/13 8:00:00Roll in palms of hands gently; Do not shake vigorously. (Same as: NovoLog Mix) "single patient use only" Stable for 14 days at room temperature Expires in days from Date Shahzad tello Migue pantoprazole 2013-07-25 12:30:00 No Taso Mougouris 40 mg, 1 tab, Route: PO, Drug form: ECTAB, Before Breakfast, Dosing Weight 90.909, kg, Start date: 07/25/13 7:30:00, Duration: 30 day, Stop date: 08/23/13 7:30:00Tablet should not be chewed or crushed. (Same as: Protonix) [facility] Sodium Chloride 0.9% IV 2013-07-25 09:21:00 No Gaxiola Ng oc Cardenas IV, 0 ml/hr, ONCE, Start date: 07/25/13 4:21:00, 1,000 ml [facility] simvastatin 2013-07-25 02:00:00 No Taso Mougouris 10 mg, 1 tab, Route: PO, Drug form: TAB, Bedtime, Dosing Weight 90.909, kg, Start date: 07/24/13 21:00:00, Duration: 30 day, Stop date: 08/22/13 21:00:00(Same as: Zocor) [facility] carvedilol 2013-07-25 02:00:00 No Gaxiola Amanda Cardenas 3.125 mg, 1 tab, Route: PO, Drug form: TAB, Q12H, Dosing Weight 90.909, kg, Start date: 07/24/13 21:00:00, Duration: 30 day, Stop date: 08/23/13 9:00:00Give with food. (Same As: Coreg) [facility] Renvela 2013-07-24 22:00:00 No Taso Mougouris 2,400 mg, 3 tab, Route: PO, Drug form: TAB, TID-Meals, Dosing Weight 90.909, kg, Start date: 07/24/13 17:00:00, Duration: 30 day, Stop date: 08/23/13 12:00:00Same as: Renvela [facility] ropinirole 2013-07-24 22:00:00 No Taso Mougouris 0.25 mg, 1 tab, Route: PO, Drug form: TAB, TID, Dosing Weight 90.909, kg, Start date: 07/24/13 17:00:00, Duration: 30 day, Stop date: 08/23/13 13:00:00(Same as: Requip) [facility] oxybutynin 2013-07-24 22:00:00 No Taso Mougouris 5 mg, 1 tab, Route: PO, Drug form: TAB, BID, Dosing Weight 90.909, kg, Start date: 07/24/13 17:00:00, Duration: 30 day, Stop date: 08/23/13 9:00:00Same as: Ditropan) [facility] insulin detemir 2013-07-24 22:00:00 No Taso Mougouris 50 unit, 0.5 mL, Route: SUB-Q, Drug form: INJ, QPM, Dosing Weight 90.909, kg, Start date: 07/24/13 17:00:00, Duration: 30 day, Stop date: 08/22/13 17:00:00Same as Levemir "single patient use only" Brennon chadwick Novolog Mix 70/30 PenFill 2013-07-24 22:00:00 No Taso M ougouris 30 unit, 0.3 mL, Route: SUB-Q, Drug form: INJ, Dinner, Dosing Weight 90.909, kg, Start date: 07/24/13 17:00:00, Duration: 30 day, Stop date: 08/22/13 17:00:00Roll in palms of hands gently; Do not shake vigorously. (Same as: NovoLog Mix) "single patient use only" Stable for 14 days at room temperature Expires in days from Date [facility] tramadol 50 mg oral tablet 2013-07-24 20:01:00 No Taso Mougouris 50 mg, 1 tab, Route: PO, Drug form: TAB, Q4H, Dosing Weight 90.909, kg, PRN Pain Score 4-6, Start date: 07/24/13 15:01:00, Duration: 30 day, Stop date: 08/23/13 15:00:00Not to exceed 400mg/day. (Same As: Ultram) [facility] promethazine 2013-07-24 20:01:00 No Taso Mougouris 12.5 mg, 1 tab, Route: PO, Drug form: TAB, Q4H, Dosing Weight 90.909, kg, PRN as needed for nausea/vomiting, Start date: 07/24/13 15:01:00, Duration: 30 day, Stop date: 08/23/13 15:00:00(Same as: Phenergan) [facility] acetaminophen-hydrocodone 325 mg-10 mg/15 mL oral solution 2013-07-24 20:00:00 No Taso Mougouris 15 mL , Route: PO, Drug Form: ELIX, Dosing Weight 90.909, kg, Q4H, PRN Pain Score 1-5, Start date: 07/24/13 15:00:00, Stop date: 08/23/13 14:59:00(acetaminophen-hydrocodone 334-5 mg/10 ml oral ELIX) Do not exceed 4gm/day of acetaminophen. Bren power Migue Renvela 800 mg oral tablet 2013-07-24 18:24:35 Yes Taso Mougouris 2,400 mg, 3 tab, PO, TID-Meals, 270 tab, Substitution Allowed, TAB Brennon Camarena Novolog Mix 70/30 PenFill subcutaneous suspension 18:23:54 Yes Taso Mougouris 30 unit, SUB-Q, Dinner, 3 ml, Higgins bstitution Allowed, SUSP [facility] Novolog Mix 70/30 PenFill subcutaneous suspension 18:23:35 Yes Taso Mougouris 26 unit, SUB-Q, Lunch, 3 ml, Sub stitution Allowed, SUSP [facility] Novolog Mix 70/30 PenFill subcutaneous suspension 18:23:19 Yes Taso Mougouris 30 unit, SUB-Q, Breakfast, 3 ml, Substitution Allowed, SUSP Brennon Fayann Levemir FlexPen 100 units/mL subcutaneous solution 2013-06 18:22:58 Yes Taso Mougouris 70 unit, SUB-Q, QPM, 3 ml, Substitu tion Allowed, SOLN Brennon Fayann Levemir FlexPen 100 units/mL subcutaneous solution 2013-06 18:22:44 Yes Taso Mougouris 16 unit, SUB-Q, QAM, 3 ml, Substitu tion Allowed, SOLN Brennon Camarena carvedilol 3.125 mg oral tablet 2013-07-24 18:22:29 Yes Taso Mougouris 3.125 mg, 1 tab, PO, Q12H, takes after d ialysis, on dialysis days (-W-), 60 tab, Substitution Allowed, TABtakes after dialysis, on dialysis days (-W-) Brennon Camarena simvastatin 10 mg oral tablet 2013-07-24 18:22:21 Yes Ta so Mougouris 0, 1 tab, PO, Bedtime, 30 tab, Substitution Allowed Brennon Camarena tramadol 50 mg oral tablet 2013-07-24 18:22:13 Yes Taso Mougouris 50 mg, 1 tab, PO, Q4H, PRN, 60 tab, Pain, Substitution Allowed, TAB [facility] M[facility] promethazine 12.5 mg oral tablet 2013-07-24 18:21:57 No Taso Mougouris 12.5 mg, 1 tab, PO, Q4H, PRN, 60 tab, Na usea & Vomiting, Substitution Allowed, TAB [facility] M[place] ropinirole 0.25 mg oral tablet 2013-07-24 18:15:09 Yes T aso Mougouris 0.25 mg, 1 tab, PO, TID, 90 tab, Substitution Allowed, TAB [facility] mg oral tablet 2013-07-24 18:14:51 Yes Taso Mougouris 5 mg, 1 tab, PO, BID, 30 tab, Substitution Allowed, TAB [facility] [place] docusate 2013-07-24 17:06:00 No Nadim B Restorationism 100 mg, 1 cap, Route: PO, Drug form: CAP, BID, Dosing Weight 104.545, kg, PRN Constipation, Start date: 07/24/13 12:06:00, Duration: 30 day, Stop date: 08/23/13 12:05:00(Same as: Colace) (Do Not Crush) [facility] ondansetron 2013-07-24 17:06:00 No Nadim B Restorationism 4 mg, 2 mL, Route: IVP, Drug form: INJ, Q8H, Dosing Weight 104.545, kg, PRN Nausea & Vomiting, Start date: 07/24/13 12:06:00, Duration: 30 day, Stop date: 08/23/13 12:05:00(Same as: Zofran) [facility] Candie nn Reglan 2013-07-24 17:00:00 No Ramdas Nell Joseph 5 mg, 1 mL, Route: IV, Drug form: INJ, Q6H, Dosing Weight 104.545, kg, Start date: 07/24/13 12:00:00, Duration: 30 day, Stop date: 08/23/13 6:00:00(Same as: Reglan) [facility] NS 1,000 mL 2013-07-24 16:25:00 No Ramdas Nell Joseph 1,000 mL, Rate: 40 ml/hr, Infuse over: 25 hr, Route: IV, Dosing Weight 104.545 kg, Total Volume: 1,000, Start date: 07/24/13 11:25:00, Duration: 30 day, Stop date: 08/23/13 11:24:00 [facility] ondansetron 2013-07-24 15:21:00 No Nadim B Restorationism 4 mg, Route: IVP, Drug form: INJ, ONCE, Dosing Weight 104.545, kg, Priority: STAT, Start date: 07/24/13 10:21:00, Stop date: 07/24/13 10:21:00 [facility] potassium chloride 20 mEq oral tablet, extended release 2013-07-24 13:26:00 No Nadim B Restorationism 20 mEq, 1 tab, Route: PO, Drug form: ERTAB, ONCE, Dosing Weight 104.545, kg, Priority: STAT, Start date: 07/24/13 8:26:00, Stop date: 07/24/13 8:26:00(Same as: K-Dur 20) "Do Not Crush" With food and full glass of water [facility] Saline Flush 0.9% 2013-07-24 11:57:00 No Nadim B Restorationism 5 mL, Route: IVP, Drug Form: INJ, Dosing Weight 104.545, kg, PRN, PRN Line Flush, Start date: 07/24/13 6:57:00, Duration: 24 hr, Stop date: 07/25/13 6:56:00Same as: BD Posiflush Sterile [facility] ondansetron 2013-07-24 11:57:00 No Nadim B Restorationism 4 mg, 2 mL, Route: IVP, Drug form: INJ, ONCE, Dosing Weight 104.545, kg, Priority: STAT, Start date: 07/24/13 6:57:00, Stop date: 07/24/13 6:57:00(Same as: Zofran) [facility] morphine Sulfate 2013-07-24 11:57:00 No Nadim B Restorationism 4 mg, Route: IVP, ONCE, Dosing Weight 104.545, kg, Priority: STAT, Start date: 07/24/13 6:57:00, Stop date: 07/24/13 6:57:00 [facility] [place] docusate sodium 150 mg/15 mL oral liquid 2013-07-03 20:58: 10 Yes Nilda Coronado 100 mg, 10 ml, P O, Daily, 240 ml, Substitution Allowed, LIQ Brennon Fayann ondansetron 4 mg oral disintegrating strip 2013-07-03 20:5 6:28 Yes Nilda Coronado 4 mg, 1 ea, PO, Q4H, 30 strip, Subs titution Allowed Brennon Camarena docusate sodium 100 mg oral capsule 2013-07-03 17:53:17 No Nilda Coronado 100 mg, 1 cap, PO, BID, 30 cap, Substitu tion Allowed Brennon Fayann acetaminophen-hydrocodone 325 mg-10 mg/15 mL oral solution 2013-07-03 17:52:51 Yes Nilda Coronado 15 ml, PO, Q4H, PRN, 400 mL, for pain, Substitution Allowed, Maintenance, SOLN Brennon Camarena normal saline 0.9% IV 250 mL 2013-07-01 17:10:00 N o Nilda Coronado 250 mL, Rate: 250 ml /hr, Infuse over: 1 hr, Route: IV, Dosing Weight 100.455 kg, Total Volume: 250, Start date: 07/01/13 12:10:00, Duration: 1 doses or times, Stop date: 07/01/13 13:09:00 momo [place] acetaminophen-hydrocodone 300 mg-10 mg/15 mL oral liquid 2013-07-01 14:02:00 No Nilda Coronado 1 5 mL, Route: PO, Drug Form: SOLN, Dosing Weight 100.455, kg, Q6H, PRN Pain, Start date: 07/01/13 9:02:00, Duration: 30 day, Stop date: 07/31/13 9:01:00 Bren Gomezfran 2013-06-30 15:59:00 No Deanna Lima 4 mg, 2 mL, Route: IV, Drug form: INJ, Q6H, Dosing Weight 100.455, kg, PRN Nausea, Start date: 06/30/13 10:59:00, Stop date: 07/30/13 10:58:00 Brennon Camarena Dilaudid 2013-06-30 11:23:00 No Nilda Coronado 0.2 mg, 0.1 mL, Route: IV, Drug form: INJ, Q6H, Dosing Weight 100.455, kg, PRN Pain, Start date: 06/30/13 6:23:00, Stop date: 07/30/13 6:22:00 [facility] Benry 2013-06-30 08:28:00 No Rigo Laxamana Sagun 25 mg, 0.5 mL, Route: IVP, Drug form: INJ, ONCE, Dosing Weight 100.455, kg, PRN Itching, Start date: 06/30/13 3:28:00 [facility] bisacodyl 2013-06-29 15:14:00 No Nilda Wongso n 10 mg, 1 supp, Route: ID, Drug form: SUPP, Daily, Dosing Weight 100.455, kg, PRN Constipation, Start date: 06/29/13 10:14:00, Duration: 30 day, Stop date: 07/29/13 10:13:00 [facility] ondansetron 2013-06-29 13:00:00 No Edinson gonsales 8 mg, 4 mL, Route: IVP, Drug form: INJ, Q4H, Dosing Weight 100.455, kg, PRN Nausea & Vomiting, Start date: 06/29/13 8:00:00, Duration: 2 doses or times, Stop date: Limited # of times [facility] Zofran 2013-06-29 08:41:00 No Rigo Laxamana Sagun 4 mg, Route: IVP, Drug form: INJ, ONCE, Dosing Weight 100.455, kg, Start date: 06/29/13 3:41:00, Stop date: 06/29/13 3:41:00 [facility] acetaminophen-codeine 300 mg-30 mg oral tablet 2013-06-27 12:11:00 No Nilda Coronado 15 mL, R oute: PO, Drug Form: LIQ, Dosing Weight 100.455, kg, Q4H, Start date: 06/27/13 7:11:00, Stop date: 07/27/13 8:00:00 [facility] Benry 2013-06-26 05:31:00 No Rigo Laxamana Sagun 25 mg, 0.5 mL, Route: IVP, Drug form: INJ, ONCE, Dosing Weight 100.455, kg, PRN Itching, Start date: 06/26/13 0:31:00 [facility] Dilaudid 2013-06-25 15:22:00 No Nilda Coronado 0.3 mg, 0.15 mL, Route: IVP, Drug form: INJ, ONCE, Dosing Weight 100.455, kg, Start date: 06/25/13 10:22:00, Stop date: 06/25/13 10:22:00 [facility] Fosrenol 2013-06-24 22:00:00 No Yaritza Soriano 1,000 mg, Route: PO, TID, Dosing Weight 100.455, kg, Start date: 06/24/13 17:00:00, Duration: 30 day, Stop date: 07/24/13 13:00:00 [facility] Renvela 2013-06-24 22:00:00 No Yaritza Soriano 2.4 gm, 1 pkt, Route: PO, Drug form: PDR/REC, TID-Meals, Start date: 06/24/13 17:00:00, Duration: 30 day, Stop date: 07/24/13 12:00:00 [facility] Zofran 2013-06-24 17:54:00 No Kimberley Tolbert 4 mg, 2 mL, Route: IVP, Drug form: INJ, ONCE, Dosing Weight 100.455, kg, Start date: 06/24/13 12:54:00, Stop date: 06/24/13 12:54:00 [facility] ondansetron 2013-06-24 17:54:00 No Nilad lowe 4 mg, 2 mL, Route: IVP, Drug form: INJ, Q12H, Dosing Weight 100.455, kg, PRN Nausea & Vomiting, Start date: 06/24/13 12:54:00, Duration: 30 day, Stop date: 07/24/13 12:53:00 [facility] 2013-06-24 17:00:00 No Opal york 1,000 mg, 100 mL, Route: IV, Drug form: INJ, Q6H, Dosing Weight 100.455, kg, Start date: 06/24/13 12:00:00, Duration: 1 day, Stop date: 06/25/13 6:00:00 [facility] amLODipine 2013-06-24 14:00:00 No Peri Penn 5 mg, 1 tab, Route: PO, Drug form: TAB, U-Vz-Zz-Sa-Higgins, Dosing Weight 100.455, kg, Start date: 06/24/13 9:00:00, Duration: 30 day, Stop date: 07/23/13 9:00:00 [facility] Dilaudid 2013-06-24 13:24:00 No Edinson Stahl [place] 0.5 mg, 0.25 mL, Route: IV, Drug form: INJ, Q4H, Dosing Weight 100.455, kg, PRN Pain, Start date: 06/24/13 8:24:00, Stop date: 07/24/13 8:23:00 [facility] NS 250 mL 2013-06-24 01:43:00 No Yaritza Abel [facility] h 250 mL, Rate: 250 ml/hr, Infuse over: 1 hr, Route: IV, Dosing Weight 100.455 kg, Total Volume: 250, Start date: 06/23/13 20:43:00, Duration: 30 day, Stop date: 07/23/13 20:42:00, DosingNeonatal Dosing [facility] Dilaudid 2013-06-23 23:14:00 No Lenore Bernadette Canalichio 0.2 mg, 0.1 mL, Route: IV, Drug form: INJ, ONCE, Dosing Weight 100.455, kg, Start date: 06/23/13 18:14:00, Stop date: 06/23/13 18:14:00 [facility] carvedilol 2013-06-23 15:00:00 No Lenore Bernadette Canalichio 50 mg, 2 tab, Route: PO, Drug form: TAB, Daily, Dosing Weight 100.455, kg, Start date: 06/23/13 10:00:00, Duration: 30 day, Stop date: 07/23/13 9:00:00 [facility] Epogen (ESRD) 2013-06-23 14:00:00 No Deanna Lima 5,000 unit, Route: IV, Q-M-W-, Dosing Weight 100.455, kg, Start date: 06/23/13 9:00:00, Duration: 30 day, Stop date: 07/21/13 9:00:00 [facility] heparin 2013-06-23 13:00:00 No Yaritza Soriano 5,000 unit, 1 mL, Route: SUB-Q, Drug form: INJ, Q8H, Start date: 06/23/13 8:00:00, Duration: 30 day, Stop date: 07/23/13 0:00:00 Angelito telma [place] Lovenox 2013-06-23 12:00:00 No Yaritza Soriano 30 mg, Route: SUB-Q, Drug form: INJ, [id number], Dosing Weight 100.455, kg, For CrCl <30mL/min, Start date: 06/23/13 7:00:00, Duration: 30 day, Stop date: 07/22/13 7:00:00 [facility] Sodium Chloride 0.45% IV 1,000 mL 2013-06-23 01:17:00 No Lenore Fleming Canalichio 1,000 mL, Rate: 50 ml/hr, Infuse over: 20 hr, Route: IV, Dosing Weight 100.455 kg, Total Volume: 1,000, Start date: 06/22/13 20:17:00, Duration: 30 day, Stop date: 07/22/13 20:16:00 [facility] cefoxitin (SCIP) 2013-06-22 23:00:00 No Yaritza Soriano 2 gm, Route: IVPB, Drug form: INJ, Q6H, Dosing Weight 100.455, kg, Start date: 06/22/13 18:00:00, Duration: 1 doses or times, Stop date: 06/22/13 18:00:00 [facility] Renvela 2013-06-22 22:00:00 No Yaritza Soriano 2,400 mg, 3 tab, Route: PO, Drug form: TAB, TID-Meals, Dosing Weight 100.455, kg, Start date: 06/22/13 17:00:00, Duration: 30 day, Stop date: 07/22/13 12:00:00 [facility] Protonix 2013-06-22 21:30:00 No Peri Hackett Isamar 40 mg, Route: IVP, Drug form: INJ, Before Dinner, Dosing Weight 100.455, kg, Start date: 06/22/13 16:30:00, Duration: 30 day, Stop date: 07/21/13 16:30:00 [facility] Dilaudid 2013-06-22 21:14:00 No Lenore Hernandezichio 0.2 mg, 0.1 mL, Route: IV, Drug form: INJ, Q2H, Dosing Weight 100.455, kg, PRN Breakthrough Pain, Start date: 06/22/13 16:14:00, Duration: 30 day, Stop date: 07/22/13 16:13:00 [facility] heparin 2013-06-22 21:00:00 No Oriraheel Colten Soriano 5,000 unit, 1 mL, Route: SUB-Q, Drug form: INJ, Q8H, Start date: 06/22/13 16:00:00, Duration: 30 day, Stop date: 07/22/13 8:00:00 Angelito hollis [place] ondansetron 2013-06-22 18:15:00 No Su Brian Caballero 4 mg, 2 mL, Route: IVP, Drug form: INJ, ONCE, Dosing Weight 100.455, kg, PRN Nausea & Vomiting, Start date: 06/22/13 13:15:00 [facility] hydromorphone 2013-06-22 18:15:00 No Su Brian Caballero 0.5 mg, 0.25 mL, Route: IVP, Drug form: INJ, Q5Min, Dosing Weight 100.455, kg, PRN Pain Score 7-10, Start date: 06/22/13 13:15:00, Duration: 5 doses or times, Stop date: 06/24/13 0:00:00 [facility] labetalol 2013-06-22 18:15:00 No Su Brian Caballero 5 mg, 1 mL, Route: IVP, Drug form: INJ, Q5Min, Dosing Weight 100.455, kg, PRN Elevated BP, Start date: 06/22/13 13:15:00, Duration: 5 doses or times, Stop date: 06/24/13 0:00:00 [facility] flumazenil 2013-06-22 18:15:00 No Su Brian Caballero 0.2 mg, 2 mL, Route: IVP, Drug form: INJ, PRN, Dosing Weight 100.455, kg, PRN Benzodiazepine Reversal, Initial dose, Start date: 06/22/13 13:15:00, Duration: 30 day, Stop date: 07/22/13 13:14:00 [facility] naloxone 2013-06-22 18:15:00 No Su Brian Caballero 0.04 mg, 0.1 mL, Route: IVP, Drug form: INJ, Q2MIN, Dosing Weight 100.455, kg, PRN Narcotic Reversal, Start date: 06/22/13 13:15:00, Duration: 8 doses or times, Stop date: 06/24/13 0:00:00 [facility] insulin aspart 2013-06-22 17:46:00 No Peri Penn 2 unit, 0.02 mL, Route: SUB-Q, Drug form: SOLN, TID-Before Meals, Dosing Weight 100.455, kg, PRN Blood Glucose Results, Start date: 06/22/13 12:46:00, Duration: 30 day, Stop date: 07/22/13 12:45:00 [facility] n Saline Flush 0.9% 2013-06-22 17:46:00 No Peri Hackett Ba jwdai 5 ml, Route: IVP, Drug Form: INJ, Dosing Weight 100.455, kg, PRN, PRN Line Flush, Start date: 06/22/13 12:46:00, Duration: 30 day, Stop date: 07/22/13 12:45:00 [facility] Sodium Chloride 0.45% IV 1,000 mL 2013-06-22 17:46:00 No Deanna Lima 1,000 mL, Rate: 85 ml/hr, Infuse over: 11.8 hr, Route: IV, Dosing Weight 100.455 kg, Total Volume: 1,000, Start date: 06/22/13 12:46:00, Duration: 30 day, Stop date: 07/22/13 12:45:00 [facility] ondansetron 2013-06-22 17:46:00 No Kimberley ross 4 mg, 2 mL, Route: IVP, Drug form: INJ, Q12H, Dosing Weight 100.455, kg, PRN Nausea & Vomiting, Start date: 06/22/13 12:46:00, Duration: 30 day, Stop date: 07/22/13 12:45:00 [facility] morphine Sulfate 2013-06-22 17:46:00 No Lenore Florentino lichio 2 mg, 1 mL, Route: IVP, Drug form: INJ, Q2H, Dosing Weight 100.455, kg, PRN Pain Score 1-5, Start date: 06/22/13 12:46:00, Duration: 30 day, Stop date: 07/22/13 12:45:00 [facility] acetaminophen-hydrocodone 300 mg-10 mg/15 mL oral liquid 2013-06-22 17:46:00 No Edinson Goel 15 mL, Route: PO, Drug Form: SOLN, Dosing Weight 100.455, kg, Q4H, PRN Pain Score 1-3, Start date: 06/22/13 12:46:00, Duration: 30 day, Stop date: 07/22/13 12:45:00 [facility] orial [place] bupivacaine liposome 2013-06-22 14:05:00 No Peri Penn 20 mL, Route: InFILtration(local), Drug Form: INJ, ONCE, Start date: 06/22/13 9:05:00, Stop date: 06/22/13 9:05:00 [facility] cefoxitin 2013-06-22 13:59:00 No Peri Penn 2 gm, Route: IVPB, PRE OP, Dosing Weight 100.455, kg, Start date: 06/22/13 8:59:00 [facility] isometheptene mucate 2013-06-22 12:19:03 No Substitution Allowed [facility] tramadol 2013-06-22 12:18:50 No Substitutio n Allowed [facility] topiramate 2013-06-22 12:18:39 No Substitut ion Allowed [facility] cyclobenzaprine 2013-06-22 12:18:29 No Subs titution Allowed [facility] pantoprazole 2013-06-22 12:13:25 Yes 40 mg daily PO, Substitution Allowed [facility] ibuprofen 400 mg oral tablet 2013-01-12 19:18:00 No Leatha Caicedo 2 tab, Route: PO , Drug form: TAB, ONCE, Dosing Weight 100, kg, Priority: STAT, Start date: 01/12/13 14:18:00, Stop date: 01/12/13 14:18:00 [facility] ondansetron 2013-01-12 16:58:00 No Leatha Miranda 4 mg, Route: IVP, ONCE, Dosing Weight 100, kg, Priority: STAT, Start date: 01/12/13 11:58:00, Stop date: 01/12/13 11:58:00 M [facility] aspirin 325 mg tablet 2013-01-12 16:58:00 No Essie Caicedo 325 mg, Route: PO, Drug form: TAB, ONCE, Dosing Weight 100, kg, Priority: STAT, Start date: 01/12/13 11:58:00, Stop date: 01/12/13 11:58:00 [facility] ondansetron 2013-01-06 19:34:00 No Jonathan R Ovi 4 mg, 2 mL, Route: IVP, Drug form: INJ, ONCE, Dosing Weight 47.727, kg, Priority: STAT, Start date: 01/06/13 14:34:00, Stop date: 01/06/13 14:34:00 [facility] hydromorphone 2013-01-06 19:33:00 No Jonathan R Ovi 1 mg, 1 mL, Route: IVP, Drug form: SOLN, ONCE, Dosing Weight 47.727, kg, PRN as needed for pain, Priority: STAT, Start date: 01/06/13 14:33:00 [facility] baclofen 2012-12-28 21:06:00 No Joselodaroxann Joseph 5 mg, 0.5 tab, Route: PO, Drug form: TAB, ONCE, Dosing Weight 106.6, kg, Start date: 12/28/12 15:06:00, Stop date: 12/28/12 15:06:00 [facility] MiraLax 2012-12-28 21:05:00 No Ramdaroxann Ballda Rajesh 17 gm, 1 pkt, Route: PO, Drug form: PWDR, ONCE, Dosing Weight 106.6, kg, Start date: 12/28/12 15:05:00, Duration: 1 doses or times, Stop date: 12/28/12 15:05:00 [facility] ondansetron 4 mg oral tablet 2012-12-28 17:08:09 Yes Faraz Cerna 4 mg, 1 tab, PO, Q8H, PRN, 20 tab, Nausea, Substitution Allowed, TAB [facility] Zofran 2012-12-28 17:04:00 No Faraz Eryn 4 mg, 1 tab, Route: PO, Drug form: TAB, Q8H, Dosing Weight 106.6, kg, PRN Nausea, Start date: 12/28/12 11:04:00, Duration: 30 day, Stop date: 01/27/13 11:03:00 [facility] Epogen (ESRD) 2012-12-28 15:00:00 No Enoch Joseph 10,000 unit, 1 mL, Route: SUB-Q, Drug form: INJ, Q-M-W-F, Dosing Weight 102.727, kg, Start date: 12/28/12 9:00:00, Duration: 30 day, Stop date: 01/25/13 9:00:00 [facility] Protonix 2012-12-28 15:00:00 No Michelle Anderson Onochie 40 mg, 1 tab, Route: PO, Drug form: ECTAB, Daily, Start date: 12/28/12 9:00:00, Duration: 30 day, Stop date: 01/26/13 9:00:00 [facility] Sodium Chloride 0.9% IV 2012-12-27 21:00:00 No Enoch Joseph IV, 30 ml/hr, ONCALL, Start date: 12/27/12 15:00:00, Duration: 1, 250 ml [facility] PhosLo Gelcap 2012-12-27 19:00:00 No Enoch Joseph 2,001 mg, 3 cap, Route: PO, Drug form: CAP, TID, Dosing Weight 106.6, kg, Start date: 12/27/12 13:00:00, Duration: 30 day, Stop date: 01/26/13 9:00:00 [facility] amLODipine 2012-12-27 15:00:00 No Faraz Cerna 5 mg, 1 tab, Route: PO, Drug form: TAB, Z-Nt-Ay-Sa-Higgins, Dosing Weight 102.727, kg, Start date: 12/27/12 9:00:00, Duration: 30 day, Stop date: 01/24/13 9:00:00 [facility] calcium carbonate 2012-12-26 23:00:00 No Ramdaroxann Gonsales umar 1,000 mg, 2 tab, Route: CHEW, Drug form: TAB, TID, Dosing Weight 102.727, kg, Start date: 12/26/12 17:00:00, Duration: 30 day, Stop date: 01/25/13 13:00:00 [facility] albuterol 0.083% inhalation solution 2012-12-26 20:38:00 No Ramdas Nell Joseph 5 mg, Route: NEB , ONCE, Dosing Weight 102.727, kg, Start date: 12/26/12 14:38:00, Stop date: 12/26/12 14:38:00 [facility] insulin aspart 2012-12-26 20:36:00 No Ramdas Nell Kuma r 10 unit, Route: IVP, ONCE, Dosing Weight 102.727, kg, Start date: 12/26/12 14:36:00, Stop date: 12/26/12 14:36:00 [facility] n d50 syringe 2012-12-26 20:35:00 No Ramdas Nell Joseph 25 gm, 50 mL, Route: IVP, Drug Form: INJ, Dosing Weight 102.727, kg, ONCE, Start date: 12/26/12 14:35:00, Stop date: 12/26/12 14:35:00 [facility] Kayexalate 2012-12-26 20:33:00 No Ramdas Nell Joseph 30 gm, Route: PO, Drug form: SUSP, ONCE, Dosing Weight 102.727, kg, Start date: 12/26/12 14:33:00, Stop date: 12/26/12 14:33:00 [facility] benjamínelamer 2012-12-26 19:00:00 No Ramdas Nell Joseph 2.4 gm, 3 tab, Route: PO, Drug form: TAB, TID, Dosing Weight 102.727, kg, Start date: 12/26/12 13:00:00, Duration: 30 day, Stop date: 01/25/13 9:00:00 [facility] albuterol 0.083% inhalation solution 2012-12-26 15:49:00 No Enoch Joseph 4.98 mg, 6 mL, R oute: NEB, Drug form: SOLN, ONCE, Dosing Weight 102.727, kg, Start date: 12/26/12 9:49:00, Stop date: 12/26/12 9:49:00 [facility] Kayexalate 2012-12-26 15:46:00 No Enoch Joseph 30 gm, Route: PO, Drug form: SUSP, ONCE, Dosing Weight 102.727, kg, Start date: 12/26/12 9:46:00, Stop date: 12/26/12 9:46:[address] [facility] docusate 2012-12-26 15:00:00 No Michelle N Onochie 100 mg, 1 cap, Route: PO, Drug form: CAP, Q12H, Dosing Weight 102.727, kg, Start date: 12/26/12 9:00:00, Duration: 30 day, Stop date: 01/24/13 21:00:00 [facility] Saline Flush 0.9% 2012-12-26 15:00:00 No Michelle N Onoch ie 5 ml, Route: IVP, Drug Form: INJ, Dosing Weight 102.727, kg, Q12H, Start date: 12/26/12 9:00:00, Duration: 30 day, Stop date: 01/24/13 21:00:00 [facility] pantoprazole 2012-12-26 15:00:00 No Michelle N Onochie 40 mg, Route: IVP, Drug form: INJ, Daily, Dosing Weight 102.727, kg, Priority: Routine, Start date: 12/26/12 9:00:00, Duration: 30 day, Stop date: 01/24/13 9:00:00 [facility] Dextrose 50% Syringe 2012-12-26 13:13:00 No Michelle N On ochie 12.5 gm, 25 mL, Route: IVP, Drug Form: INJ, Dosing Weight 102.727, kg, PRN, PRN Blood Glucose Results, Start date: 12/26/12 7:13:00, Duration: 30 day, Stop date: 01/25/13 8:12:00 [facility] glucagon 2012-12-26 13:13:00 No Michelle N Onochie 1 mg, Route: IM, Drug form: PDR/INJ, PRN, Dosing Weight 102.727, kg, PRN Blood Glucose Results, Start date: 12/26/12 7:13:00, Duration: 30 day, Stop date: 01/25/13 8:12:00 [facility] insulin aspart 2012-12-26 13:13:00 No Michelle N Onochie 4 unit, 0.04 mL, Route: SUB-Q, Drug form: SOLN, TID-Before Meals, Dosing Weight 102.727, kg, PRN Blood Glucose Results, Start date: 12/26/12 7:13:00, Duration: 30 day, Stop date: 01/25/13 7:12:00 [facility] DuoNeb inhalation solution 2012-12-26 12:21:00 No Nnenn a N Onochie 3 ml, Route: INHALATION, Drug Form: SOLN, Dosing Weight 102.727, kg, PRN, PRN Respiratory Protocol, Start date: 12/26/12 6:21:00, Duration: 30 day, Stop date: 01/25/13 7:20:00 [facility] chlorhexidine topical 4% soap 2012-12-26 10:00:00 No Nn ele N Onochie 1 appl, Route: BATHE, Q24H, Start date: 12/26/12 4:00:00, Duration: 30 day, Stop date: 01/24/13 4:00:00 [facility] glucagon 2012-12-26 09:55:00 No Michelle N Onochie 1 mg, Route: IM, Drug form: PDR/INJ, PRN, Dosing Weight 102.727, kg, PRN Blood Glucose Results, Start date: 12/26/12 3:55:00, Duration: 30 day, Stop date: 01/25/13 4:54:00 [facility] Dextrose 50% Syringe 2012-12-26 09:55:00 No Michelle N On ochie 25 gm, 50 mL, Route: IVP, Drug Form: INJ, Dosing Weight 102.727, kg, PRN, PRN Blood Glucose Results, Start date: 12/26/12 3:55:00, Duration: 30 day, Stop date: 01/25/13 4:54:00 [facility] insulin aspart 2012-12-26 09:55:00 No Michelle N Onochie 4 unit, 0.04 mL, Route: SUB-Q, Drug form: SOLN, Bedtime, Dosing Weight 102.727, kg, PRN Blood Glucose Results, Start date: 12/26/12 3:55:00, Duration: 30 day, Stop date: 01/25/13 3:54:00 [facility] morphine Sulfate 2012-12-26 09:52:00 No Michelle N Onochi e 4 mg, 2 mL, Route: IVP, Drug form: INJ, Q3H, Dosing Weight 105.001, kg, PRN Pain Score 7-10, Start date: 12/26/12 3:52:00, Duration: 30 day, Stop date: 01/25/13 3:51:00 [facility] ondansetron 2012-12-26 09:52:00 No Michelle N Onochie 4 mg, 2 mL, Route: IVP, Drug form: INJ, Q6H, Dosing Weight 102.727, kg, PRN Nausea & Vomiting, Start date: 12/26/12 3:52:00, Duration: 30 day, Stop date: 01/25/13 3:51:00 [facility] ondansetron 2012-12-26 09:51:00 No Michelle N Onochie 4 mg, 2 mL, Route: IVP, Drug form: INJ, Q4H, Dosing Weight 102.727, kg, PRN Nausea & Vomiting, Start date: 12/26/12 3:51:00, Duration: 30 day, Stop date: 01/25/13 3:50:00 [facility] albuterol-ipratropium 2.5-0.5 mg inhalation solution 12-26 09:51:00 No Michelle N Onochie 3 ml, Route: NE B, Drug Form: SOLN, Dosing Weight 102.727, kg, PRN, PRN Respiratory Protocol, Start date: 12/26/12 3:51:00, Duration: 30 day, Stop date: 01/25/13 4:50:00 [place] [facility] Saline Flush 0.9% 2012-12-26 09:51:00 No Michelle Anderson Onoch ie 5 ml, Route: IVP, Drug Form: INJ, Dosing Weight 102.727, kg, PRN, PRN Line Flush, Start date: 12/26/12 3:51:00, Duration: 30 day, Stop date: 01/25/13 4:50:00 [facility] morphine Sulfate 2012-12-26 09:51:00 No Michelle Anderson Onpatriciai e 2 mg, 1 mL, Route: IV, Drug form: INJ, Q2H, Dosing Weight 102.727, kg, PRN as needed for pain, Start date: 12/26/12 3:51:00, Duration: 30 day, Stop date: 01/25/13 3:50:00 [facility] acetaminophen 2012-12-26 09:51:00 No Michelle Anderson Onochie 650 mg, 2 tab, Route: PO, Drug form: TAB, Q6H, Dosing Weight 102.727, kg, PRN Pain, Start date: 12/26/12 3:51:00, Duration: 30 day, Stop date: 01/25/13 3:50:00 [facility] albuterol 0.083% inhalation solution 2012-12-26 07:12:00 No Enoch Joseph 4.98 mg, Route: NEB, Drug form: SOLN, ONCE, Dosing Weight 102.727, kg, Start date: 12/26/12 1:12:00, Stop date: 12/26/12 1:12:00 [facility] albuterol 0.083% inhalation solution 2012-12-26 07:00:00 No Jonathan Lauren 20 mg, Route: NE B, Continuous, Dosing Weight 102.727, kg, Start date: 12/26/12 1:00:00 [facility] calcium gluconate 2012-12-26 06:33:00 No Jonathan ramirez 1,000 mg, Route: IVP, ONCE, Dosing Weight 102.727, kg, Priority: STAT, Start date: 12/26/12 0:33:00, Stop date: 12/26/12 0:33:00 [facility] sodium bicarbonate 2012-12-26 06:33:00 No Jonathan Lauren 50 mEq, Route: IVP, ONCE, Dosing Weight 102.727, kg, Priority: STAT, Start date: 12/26/12 0:33:00, Stop date: 12/26/12 0:33:00 [facility] sodium polystyrene sulfonate 2012-12-26 06:33:00 No Jonathan Lauren 15 gm, Route: PO, Drug form: SUSP, ONCE, Dosing Weight 102.727, kg, Priority: STAT, Start date: 12/26/12 0:33:00, Stop date: 12/26/12 0:33:00 [facility] Insulin regular 2012-12-26 06:33:00 No Jonathan kendrick 10 unit, Route: IVP, ONCE, Dosing Weight 102.727, kg, Priority: STAT, Start date: 12/26/12 0:33:00, Stop date: 12/26/12 0:33:00 [facility] Dextrose 50% Syringe 2012-12-26 06:33:00 No Jonathan Lauren 25 gm, Route: IVP, Dosing Weight 102.727, kg, ONCE, STAT, Start date: 12/26/12 0:33:00, Stop date: 12/26/12 0:33:[address] [facility] Saline Flush 0.9% 2012-12-26 06:33:00 No Joseluis Jamil ok 5 mL, Route: IVP, Drug Form: INJ, Dosing Weight 102.727, kg, PRN, PRN Line Flush, Start date: 12/26/12 0:33:00, Duration: 30 day, Stop date: 01/25/13 1:32:00 [facility] Ativan 2012-12-26 05:59:00 No Jonathan Lauren 1 mg, Route: IVP, ONCE, Dosing Weight 102.727, kg, Priority: STAT, Start date: 12/25/12 23:59:00, Stop date: 12/25/12 23:59:[address] [facility] Saline Flush 0.9% 2012-12-26 05:59:00 No Joseluis Van M ok 5 mL, Route: IVP, Drug Form: INJ, Dosing Weight 102.727, kg, Q8H, PRN Line Flush, Start date: 12/25/12 23:59:00, Duration: 30 day, Stop date: 01/24/13 23:58:00, Administer at least once every 8 hoursAdminister at least once every 8 hours [facility] aspirin 2012-12-26 05:59:00 No Jonathan Loja Leonidas 324 mg, Route: PO, ONCE, Dosing Weight 102.727, kg, Priority: STAT, Start date: 12/25/12 23:59:00, Stop date: 12/25/12 23:59:00 [facility] jero morphine Sulfate 2012-12-05 14:10:00 No Nadim B Restorationism 4 mg, 2 mL, Route: IVP, Drug form: INJ, ONCE, Dosing Weight 105, kg, Priority: STAT, Start date: 12/05/12 8:10:00, Stop date: 12/05/12 8:10:00 [facility] [place] 5/325 oral tablet 2012-12-02 20:30:40 Yes Joseluis Enr ique Lisa 1-2 tab, PO, Q6H, PRN, 30 tab, Pain, Substitution Allowed, Maintenance [facility] Lyrica 75 mg oral capsule 2012-12-02 20:29:36 Yes Joseluis E nrique Lisa 75 mg, 1 cap, PO, TID, 90 cap, Substitution Allowed, CAP [facility] Lovenox 2012-12-02 04:00:00 No Jean-Paul Ramirez 30 mg, 0.3 mL, Route: SUB-Q, Drug form: INJ, Q24H, Dosing Weight 105.909, kg, Priority: Within 8 hours, Start date: 12/01/12 22:00:00, Duration: 30 day, Stop date: 12/30/12 22:00:00 [facility] lidocaine 1% 2012-12-01 21:50:00 No Jade Nash-Clinton 10 mL, Route: INTRADERM, Drug Form: INJ, Dosing Weight 105.909, kg, ONCE, Start date: 12/01/12 15:50:00, Stop date: 12/01/12 15:50:00 [facility] Kenalog-40 2012-12-01 21:50:00 No Jade Nash-Clinton 80 mg, 2 mL, Route: intra-ARTICULAR, Drug form: INJ, ONCE, Dosing Weight 105.909, kg, Start date: 12/01/12 15:50:00, Stop date: 12/01/12 15:50:00 [facility] Dilaudid 2012-12-01 20:38:00 No Joseluis Van Lisa 1 mg, 1 mL, Route: IV, Drug form: SOLN, Q3H, Dosing Weight 105.909, kg, PRN Pain, Start date: 12/01/12 14:38:00, Duration: 30 day, Stop date: 12/31/12 14:37:00 [facility] D5W 1/2NS + KCL 20mEq/L 1000ml (Premix) 1000 mL 2012-12-01 16:11:00 No Jean-Paul Ramirez 1,000 mL, R ate: 100 ml/hr, Infuse over: 10 hr, Route: IV, Dosing Weight 105.909 kg, Total Volume: 1,000, Start date: 12/01/12 10:11:00, Duration: 30 day, Stop date: 12/31/12 10:10:00 [facility] NS + KCL 20mEq/L 1000ml (Premix) 1000 mL 2012-12-01 16:11: 00 No Jean-Paul Ramirez 1,000 mL, Rate: 100 ml/hr, Infuse over: 10 hr, Route: IV, Dosing Weight 105.909 kg, Total Volume: 1,000, Start date: 12/01/12 10:11:00, Duration: 30 day, Stop date: 12/31/12 10:10:00 [facility] 1/2 NS 1,000 mL 2012-12-01 16:11:00 No Joseluis Van Lisa 1,000 mL, Rate: 100 ml/hr, Infuse over: 10 hr, Route: IV, kg, Total Volume: 1,000, Start date: 12/01/12 10:11:00, Duration: 30 day, Stop date: 12/31/12 10:10:00 [facility] cefazolin 2012-12-01 15:53:00 No Jean-Paul Ramirez 2 gm, Route: IVPB, ONCE, Dosing Weight 105.909, kg, Start date: 12/01/12 9:53:00, Duration: 1 doses or times, Stop date: 12/01/12 9:53:00 [facility] nitroglycerin 0.4 mg sublingual tablet 2012-12-01 01:55:00 No Joseluis Van Lisa 0.4 mg, 1 tab, R oute: SL, Drug form: TAB, Q5Min, PRN Chest Pain, Start date: 11/30/12 19:55:00, Duration: 30 day, Stop date: 12/30/12 19:54:00 [facility] atropine 2012-12-01 01:55:00 No Joseluis Van Lisa 0.5 mg, 5 mL, Route: IVP, Drug form: INJ, PRN, PRN Bradycardia, Start date: 11/30/12 19:55:00, Duration: 30 day, Stop date: 12/30/12 19:54:00 [facility] Epogen (ESRD) 2012-11-30 23:00:00 No Enoch Joseph 10,000 unit, 1 mL, Route: SUB-Q, Drug form: INJ, Q-M-W-F, Dosing Weight 105.909, kg, Start date: 11/30/12 17:00:00, Duration: 30 day, Stop date: 12/28/12 17:00:00 [facility] Novolog 70/30 2012-11-30 22:30:00 No Joseluis Van Lisa 45 unit, 0.45 mL, Route: SUB-Q, Drug form: INJ, Before Dinner, Dosing Weight 102.727, kg, Start date: 11/30/12 16:30:00, Duration: 30 day, Stop date: 12/29/12 16:30:00 [facility] NovoLog Mix 70/30 FlexPen 2012-11-30 17:30:00 No Joseluis E nrique Lisa 26 unit, 0.26 mL, Route: SUB-Q, Drug form: INJ, Before Lunch, Dosing Weight 102.727, kg, Start date: 11/30/12 11:30:00, Duration: 30 day, Stop date: 12/29/12 11:30:00 [facility] morphine Sulfate 2012-11-30 16:35:00 No Joseluis Van Mo k 4 mg, 2 mL, Route: IVP, Drug form: INJ, Q3H, Dosing Weight 105.909, kg, PRN Severe Pain, Start date: 11/30/12 10:35:00, Duration: 30 day, Stop date: 12/30/12 10:34:00 [facility] Lyrica 2012-11-30 15:00:00 No Joseluis Van Lisa 75 mg, 1 cap, Route: PO, Drug form: CAP, BID, Dosing Weight 102.727, kg, Start date: 11/30/12 9:00:00, Duration: 30 day, Stop date: 12/29/12 17:00:00 [facility] ropinirole 2012-11-30 15:00:00 No Joseluis Van Lisa 0.25 mg, 1 tab, Route: PO, Drug form: TAB, TID, Dosing Weight 102.727, kg, Start date: 11/30/12 9:00:00, Duration: 30 day, Stop date: 12/29/12 17:00:00 [facility] oxybutynin 2012-11-30 15:00:00 No Joseluis Van Lisa 5 mg, 1 tab, Route: PO, Drug form: TAB, TID, Dosing Weight 102.727, kg, Start date: 11/30/12 9:00:00, Duration: 30 day, Stop date: 12/29/12 17:00:00 [facility] insulin detemir 2012-11-30 15:00:00 No Joseluis Van Lisa 16 unit, 0.16 mL, Route: SUB-Q, Drug form: INJ, QAM, Dosing Weight 102.727, kg, Start date: 11/30/12 9:00:00, Duration: 30 day, Stop date: 12/29/12 9:00:00 [facility] gabapentin 100 mg oral capsule 2012-11-30 15:00:00 No Joseluis Van Lisa 100 mg, 1 cap, Route: PO, Drug form: CAP , Daily, Dosing Weight 102.727, kg, Start date: 11/30/12 9:00:00, Duration: 30 day, Stop date: 12/29/12 9:00:00 [facility] calcium carbonate 2012-11-30 15:00:00 No Joseluis Van M ok 1,000 mg, 2 tab, Route: CHEW, Drug form: CHEWTAB, TID, Dosing Weight 102.727, kg, Start date: 11/30/12 9:00:00, Duration: 30 day, Stop date: 12/29/12 17:00:00 [facility] docusate 2012-11-30 15:00:00 No Joseluis Van Lisa 100 mg, 1 cap, Route: PO, Drug form: CAP, BID, Dosing Weight 102.727, kg, Start date: 11/30/12 9:00:00, Duration: 30 day, Stop date: 12/29/12 17:00:00 [facility] Renvela 2012-11-30 14:00:00 No Joseluis Van Lisa 2,400 mg, 3 tab, Route: PO, Drug form: TAB, TID-Meals, Dosing Weight 102.727, kg, Start date: 11/30/12 8:00:00, Duration: 30 day, Stop date: 12/29/12 17:00:00 [facility] Novolog 70/30 2012-11-30 13:30:00 No Joseluis Van Lisa 40 unit, 0.4 mL, Route: SUB-Q, Drug form: INJ, Before Breakfast, Dosing Weight 102.727, kg, Start date: 11/30/12 7:30:00, Duration: 30 day, Stop date: 12/29/12 7:30:00 [facility] simvastatin 2012-11-30 03:00:00 No Joseluis Van Lisa 20 mg, 1 tab, Route: PO, Drug form: TAB, Bedtime, Dosing Weight 102.727, kg, Start date: 11/29/12 21:00:00, Duration: 30 day, Stop date: 12/28/12 21:00:00 [facility] Levemir 2012-11-30 03:00:00 No Joseluis Van Lisa 70 unit, 0.7 mL, Route: SUB-Q, Drug form: INJ, Bedtime, Dosing Weight 102.727, kg, Start date: 11/29/12 21:00:00, Duration: 30 day, Stop date: 12/28/12 21:00:00 [facility] heparin 2012-11-30 03:00:00 No Jean-Paul Ramirez 5,000 unit, 1 mL, Route: SUB-Q, Drug form: INJ, Q12H, Dosing Weight 102.727, kg, Start date: 11/29/12 21:00:00, Duration: 30 day, Stop date: 12/29/12 9:00:00 [facility] amLODipine 2012-11-30 00:29:00 No Joseluis Van Lisa 5 mg, 1 tab, Route: PO, Drug form: TAB, T-Ms-Ip-Sa-Higgins, Dosing Weight 102.727, kg, Start date: 11/29/12 18:29:00, Duration: 30 day, Stop date: 12/29/12 9:00:00 [facility] furosemide 40 mg oral tablet 2012-11-30 00:29:00 No Ramdas Nell Joseph 40 mg, 1 tab, Route: PO, Drug form: TAB, M-Vx-Lv-Sa-Higgins, Dosing Weight 102.727, kg, Start date: 11/29/12 18:29:00, Duration: 30 day, Stop date: 12/29/12 9:00:00 [facility] carvedilol 2012-11-30 00:29:00 No Ramdas Nell Joseph 50 mg, 4 tab, Route: PO, Drug form: TAB, O-Sr-Kf-Sa-Higgins, Dosing Weight 102.727, kg, Start date: 11/29/12 18:29:00, Duration: 30 day, Stop date: 12/29/12 17:00:00 [facility] temazepam 2012-11-30 00:28:00 No Joseluis Van Lisa 15 mg, 1 cap, Route: PO, Drug form: CAP, Bedtime, Dosing Weight 102.727, kg, PRN Insomnia, Start date: 11/29/12 18:28:00, Duration: 30 day, Stop date: 12/29/12 18:27:00 [facility] ondansetron 2012-11-30 00:28:00 No Joseluis Van Lisa 4 mg, 2 mL, Route: IVP, Drug form: INJ, Q6H, Dosing Weight 102.727, kg, PRN Nausea & Vomiting, Start date: 11/29/12 18:28:00, Duration: 30 day, Stop date: 12/29/12 18:27:00 [facility] acetaminophen-hydrocodone 325 mg-5 mg oral tablet 00:28:00 No Joseluis Van Lisa 2 tab, Route: P O, Drug Form: TAB, Dosing Weight 102.727, kg, Q4H, PRN Pain Score 4-6, Start date: 11/29/12 18:28:00, Duration: 30 day, Stop date: 12/29/12 18:27:[address] [facility] morphine Sulfate 2012-11-30 00:28:00 No Joseluis Van Mo k 2 mg, 1 mL, Route: IVP, Drug form: INJ, Q3H, Dosing Weight 102.727, kg, PRN Pain Score 4-6, Start date: 11/29/12 18:28:00, Duration: 30 day, Stop date: 12/29/12 18:27:00 [facility] acetaminophen 2012-11-30 00:28:00 No Joseluis Van Lisa 650 mg, 2 tab, Route: PO, Drug form: TAB, Q4H, Dosing Weight 102.727, kg, PRN Pain/Fever, Start date: 11/29/12 18:28:00, Duration: 30 day, Stop date: 12/29/12 18:27:00 [facility] Tums Ultra 1000 mg oral tablet, chewable 2012-11-29 21:10: 12 Yes Joseluis Van Lisa 1,000 mg, 1 tab, CHEW, TID, Substituti on Allowed [facility] Vitamin D 50,000 intl units oral capsule 2012-11-29 21:09:49 Yes 50,000 IntlUnit, 1 cap, PO, QSat, Substitution Allowed [facility] acetaminophen-hydrocodone 325 mg-5 mg oral tablet 2012-11-29 21:09:33 No 1 tab, PO, Q6H, PRN, as needed f or pain, Substitution Allowed, Maintenance [facility] promethazine 12.5 mg oral tablet 2012-11-29 21:09:14 Yes 12.5 mg, 1 tab, PO, Q6H, PRN, as needed for nausea/vomiting, Substitution Allowed [facility] gabapentin 100 mg oral capsule 2012-11-29 21:06:57 No Joseluis Van Lisa 100 mg, 1 cap, PO, Daily, Substitution Allowed [facility] tramadol 2012-11-29 20:52:00 No Enoch Camejo Joseph 25 mg, 0.5 tab, Route: PO, Drug form: TAB, ONCE, Dosing Weight 102.727, kg, Priority: STAT, Start date: 11/29/12 14:52:00, Stop date: 11/29/12 14:52:00 [facility] Tylenol 2012-11-29 18:47:00 No Van Menezes Abrams 1,000 mg, Route: PO, ONCE, Dosing Weight 102.727, kg, Priority: STAT, Start date: 11/29/12 12:47:00, Stop date: 11/29/12 12:47:[address] [facility] Kayexalate 2012-11-29 17:58:00 No Van Menezes Abrams 30 gm, Route: PO, Drug form: SUSP, ONCE, Dosing Weight 102.727, kg, Priority: STAT, Start date: 11/29/12 11:58:00, Stop date: 11/29/12 11:58:00 [facility] sodium bicarbonate 2012-11-29 17:57:00 No Van Menezes Abrams 50 mEq, 50 mL, Route: INJ, Drug form: INJ, ONCE, Dosing Weight 102.727, kg, Priority: STAT, Start date: 11/29/12 11:57:00, Stop date: 11/29/12 11:57:00 [facility] DuoNeb inhalation solution 2012-11-29 17:35:00 No Van Menezes Abrams 3 mL, Route: NEB, Drug Form: SOLN, Dosing Weight 102.727, kg, ONCE, Start date: 11/29/12 11:35:00, Stop date: 11/29/12 11:35:00 [facility] Valium 2012-11-29 17:07:00 No Van Menezes Abrams 5 mg, 1 mL, Route: IVP, Drug form: INJ, ONCE, Dosing Weight 102.727, kg, Priority: STAT, Start date: 11/29/12 11:07:00, Stop date: 11/29/12 11:07:00 [facility] Saline Flush 0.9% 2012-11-29 17:06:00 No Van Macho Abrams 5 ml, Route: IVP, Drug Form: INJ, Dosing Weight 102.727, kg, PRN, PRN Line Flush, Start date: 11/29/12 11:06:00, Duration: 30 day, Stop date: 12/29/12 11:05:00 [facility] ciprofloxacin 500 mg oral tablet 2012-09-10 16:44:18 Yes Joseluis Van Lisa 500 mg, 1 tab, PO, Q24H, 5 tab, Substitution Allowed, TAB [facility] [place] 5/325 oral tablet 2012-09-10 16:42:39 Yes Joseluis Enr ique Lisa 1-2 tab, PO, Q6H, PRN, 30 tab, Pain, Substitution Allowed, Maintenance [facility] methocarbamol 750 mg oral tablet 2012-09-10 16:42:17 Yes Joseluis Van Lisa 750 mg, 1 tab, PO, TID, 30 tab, Substitution Allowed, TAB [facility] Coreg 2012-09-10 03:00:00 No Enoch Camejo Joseph 25 mg, 2 tab, Route: PO, Drug form: TAB, Q12H, Dosing Weight 100, kg, Start date: 09/09/12 21:00:00, Duration: 30 day, Stop date: 10/09/12 9:00:00 [facility] lidocaine 1% 2012-09-09 21:55:00 Yes Jade Nash-Clinton 5 mL, Route: INTRADERM, Drug Form: INJ, Dosing Weight 100, kg, ONCE, STAT, Start date: 09/09/12 15:55:00, Stop date: 09/09/12 15:55:00 [facility] Kenalog-40 2012-09-09 21:54:00 Yes Jade Nash-Clinton 40 mg, 1 mL, Route: INTRADERM, Drug form: INJ, ONCE, Dosing Weight 100, kg, Priority: STAT, Start date: 09/09/12 15:54:00, Stop date: 09/09/12 15:54:00 [facility] Dilaudid 2012-09-09 16:59:00 No Joseluis Van Lisa 1 mg, 1 mL, Route: IV, Drug form: SOLN, Q3H, Dosing Weight 100, kg, PRN Pain Score 4-6, Start date: 09/09/12 10:59:00, Duration: 30 day, Stop date: 10/09/12 10:58:00 [facility] 15[facility]00:00 No David Mahmoud Albustami 16 unit, 0.16 mL, Route: SUB-Q, Drug form: INJ, QAM, Dosing Weight 100, kg, Start date: 09/09/12 9:00:00, Duration: 30 day, Stop date: 10/08/12 9:00:00 [facility] Novolog 2012-09-09 14:00:00 No David Mahmoud Albus patsy 40 unit, 0.4 mL, Route: SUB-Q, Drug form: INJ, Breakfast, Dosing Weight 100, kg, Start date: 09/09/12 8:00:00, Duration: 30 day, Stop date: 10/08/12 8:00:00 [facility] Rocephin 2012-09-09 06:00:00 No Joseluis Gonzalez 1 gm, Route: IV, Q24H, Dosing Weight 100, kg, Start date: 09/09/12 0:00:00, Duration: 30 day, Stop date: 10/08/12 0:00:00 [facility] 2012-09-09 03:00:00 No David Murrietanestor Albustami 70 unit, 0.7 mL, Route: SUB-Q, Drug form: INJ, Bedtime, Dosing Weight 100, kg, Start date: 09/08/12 21:00:00, Duration: 30 day, Stop date: 10/07/12 21:00:00 [facility] carvedilol 2012-09-09 03:00:00 No Ramdaroxann Ballda Joseph 25 mg, 2 tab, Route: PO, Drug form: TAB, Bedtime, Dosing Weight 100, kg, Start date: 09/08/12 21:00:00, Duration: 30 day, Stop date: 10/07/12 21:00:00 [facility] Novolog 2012-09-08 23:00:00 No David Mahmoud Albus patsy 45 unit, 0.45 mL, Route: SUB-Q, Drug form: INJ, Dinner, Dosing Weight 100, kg, Start date: 09/08/12 17:00:00, Duration: 30 day, Stop date: 10/07/12 17:00:00 [facility] NovoLog Mix 70/30 FlexPen 2012-09-08 18:00:00 No Umm Rand 26 unit, 0.26 mL, Route: SUB-Q, Drug for m: INJ, Lunch, Dosing Weight 100, kg, Start date: 09/08/12 12:00:00, Duration: 30 day, Stop date: 10/07/12 12:00:00 [facility] [place] 5/325 oral tablet 2012-09-08 17:15:00 No Enoch Joseph 1 tab, Route: PO, Drug Form: TAB, Dosing Weight 100, kg, Q6H, PRN Pain, Start date: 09/08/12 11:15:00, Duration: 30 day, Stop date: 10/08/12 11:14:00 [facility] Rocephin + Sodium Chloride 0.9% IV 100 mL 2012-09-08 16:00 :00 No Joseluis Gonzalez 1 gm, Route: IVP B, Drug form: PDR/INJ, [id number], Dosing Weight 100, kg, Start date: 09/08/12 10:00:00, Duration: 30 day, Stop date: 10/07/12 10:00:00 [facility] Epogen (ESRD) 2012-09-07 23:00:00 No Enoch Joseph 3,000 unit, 1 mL, Route: SUB-Q, Drug form: INJ, Q-M-W-F, Dosing Weight 100, kg, Start date: 09/07/12 17:00:00, Duration: 30 day, Stop date: 10/05/12 17:00:00 [facility] epoetin shilpi 2012-09-07 23:00:00 No Enoch Joseph 2,000 unit, 1 mL, Route: SUB-Q, Drug form: INJ, Q-M-W-F, Start date: 09/07/12 17:00:00, Duration: 30 day, Stop date: 10/05/12 17:00:00 [facility] famotidine 2012-09-07 15:00:00 No William Terminella 20 mg, 1 tab, Route: PO, Drug form: TAB, Daily, Dosing Weight 100, kg, Start date: 09/07/12 9:00:00, Duration: 30 day, Stop date: 10/06/12 9:00:00 [facility] Novolog 70/30 2012-09-07 14:50:00 No Joseluis Van Lisa 40 unit, 0.4 mL, Route: SUB-Q, Drug form: INJ, QAM, Dosing Weight 100, kg, Start date: 09/07/12 8:50:00, Duration: 30 day, Stop date: 10/06/12 8:50:00 [facility] 2012-09-07 06:00:00 No Joseluis Van Lisa 100 mg, 2 cap, Route: PO, Drug form: CAP, Q8H, Dosing Weight 100, kg, Start date: 09/07/12 0:00:00, Duration: 30 day, Stop date: 10/06/12 16:00:00 [facility] 2012-09-07 03:00:00 No Joseluis Van Lisa 40 mg, 1 tab, Route: PO, Drug form: TAB, Bedtime, Dosing Weight 100, kg, Start date: 09/06/12 21:00:00, Duration: 30 day, Stop date: 10/05/12 21:00:[facility] 03:00:00 No Joseluis Van Lisa 75 mg, 1 cap, Route: PO, Drug form: CAP, Q12H, Dosing Weight 100, kg, Start date: 09/06/12 21:00:00, Duration: 30 day, Stop date: 10/06/12 9:00:00 [facility]mir 2012-09-07 03:00:00 No Joseluis Van Lisa 70 unit, 0.7 mL, Route: SUB-Q, Drug form: INJ, Bedtime, Dosing Weight 100, kg, Start date: 09/06/12 21:00:00, Duration: 30 day, Stop date: 10/05/12 21:00:00 [facility] gabapentin 100 mg oral capsule 2012-09-07 03:00:00 No Joseluis Van Lisa 100 mg, 1 cap, Route: PO, Drug form: CAP , Q12H, Dosing Weight 100, kg, Start date: 09/06/12 21:00:00, Duration: 30 day, Stop date: 10/06/12 9:00:00 [facility] carvedilol 2012-09-07 03:00:00 No Enoch Camejo Joseph 50 mg, 4 tab, Route: PO, Drug form: TAB, Bedtime, Dosing Weight 100, kg, Start date: 09/06/12 21:00:00, Duration: 30 day, Stop date: 10/05/12 21:00:00 [facility] Novolin R 2012-09-07 02:41:00 No Faraz Cerna 10 unit, 0.1 mL, Route: IV, Drug form: INJ, ONCE, Start date: 09/06/12 20:41:00, Stop date: 09/06/12 20:41:00 [facility] Novolin R 100 unit + Sodium Chloride 0.9% IV 99 mL 2012-08 02:27:00 No Joseluis Van Lisa 99 mL, Rate: Ti trate per Insulin drip protocol, Route: IV, kg, Total Volume: 100, Start date: 09/06/12 20:27:00, Stop date: 10/06/12 20:26:00 [facility] NovoLog FlexPen 2012-09-07 02:26:00 No Faraz menezes 10 unit, 0.1 mL, Route: SUB-Q, Drug form: SOLN, ONCE, Start date: 09/06/12 20:26:00, Stop date: 09/06/12 20:26:00 [facility] insulin aspart 2012-09-07 01:01:00 No Joseluis Van Lisa 20 unit, 0.2 mL, Route: SUB-Q, Drug form: SOLN, ONCE, Dosing Weight 100, kg, Start date: 09/06/12 19:01:00, Stop date: 09/06/12 19:01:00 [facility] oxybutynin 2012-09-06 23:00:00 No Joseluis Van Lisa 5 mg, 1 tab, Route: PO, Drug form: TAB, BID, Dosing Weight 100, kg, Start date: 09/06/12 17:00:00, Duration: 30 day, Stop date: 10/06/12 9:00:00 [facility] Novolog 70/30 2012-09-06 23:00:00 No Joseluis Van Lisa 45 unit, 0.45 mL, Route: SUB-Q, Drug form: INJ, Dinner, Dosing Weight 100, kg, Start date: 09/06/12 17:00:00, Duration: 30 day, Stop date: 10/05/12 17:00:00 [facility] NovoLog FlexPen 2012-09-06 22:31:00 No Enoch Camejo Kerri ar 20 unit, 0.2 mL, Route: SUB-Q, Drug form: SOLN, ONCE, Start date: 09/06/12 16:31:00, Stop date: 09/06/12 16:31:00 [facility] insulin aspart 2012-09-06 22:02:00 No Joseluis Van Lisa 15 unit, 0.15 mL, Route: SUB-Q, Drug form: SOLN, TID-Before Meals, Dosing Weight 100, kg, PRN Blood Glucose Results, Start date: 09/06/12 16:02:00, Duration: 30 day, Stop date: 10/06/12 16:01:00 [facility] Dextrose 50% Syringe 2012-09-06 22:02:00 No Joseluis Enriqu e Lisa 12.5 gm, 25 mL, Route: IVP, Drug Form: INJ, Dosing Weight 100, kg, PRN, PRN Blood Glucose Results, Start date: 09/06/12 16:02:00, Duration: 30 day, Stop date: 10/06/12 16:01:00 [facility] glucagon 2012-09-06 22:02:00 No Joseluis Van Lisa 1 mg, Route: IM, Drug form: PDR/INJ, PRN, Dosing Weight 100, kg, PRN Blood Glucose Results, Start date: 09/06/12 16:02:00, Duration: 30 day, Stop date: 10/06/12 16:01:00 [facility] ropinirole 2012-09-06 22:00:00 No Joseluis Van Lisa 0.25 mg, 1 tab, Route: PO, Drug form: TAB, Q8H, Dosing Weight 100, kg, Start date: 09/06/12 16:00:00, Duration: 30 day, Stop date: 10/06/12 8:00:00 [facility] insulin detemir 2012-09-06 19:00:00 No Joseluis Van Lisa 16 unit, 0.16 mL, Route: SUB-Q, Drug form: INJ, Daily, Dosing Weight 100, kg, Start date: 09/06/12 13:00:00, Duration: 30 day, Stop date: 10/06/12 9:00:00 [facility] furosemide 40 mg oral tablet 2012-09-06 18:14:00 No Ramdas Nell Joseph 40 mg, 1 tab, Route: PO, Drug form: TAB, F-Wa-Pj-Sa-Higgins, Dosing Weight 100, kg, Start date: 09/06/12 12:14:00, Duration: 30 day, Stop date: 10/06/12 9:00:00 [facility] carvedilol 2012-09-06 18:13:00 No Ramdas Nell Joseph 50 mg, 4 tab, Route: PO, Drug form: TAB, E-Yx-Tw-Sa-Higgins, Dosing Weight 100, kg, Start date: 09/06/12 12:13:00, Duration: 30 day, Stop date: 10/06/12 9:00:00 [facility] amLODipine 2012-09-06 18:10:00 No Joseluis Van Lisa 5 mg, 1 tab, Route: PO, Drug form: TAB, N-Le-Xn-Sa-Higgins, Dosing Weight 100, kg, Start date: 09/06/12 12:10:00, Duration: 30 day, Stop date: 10/06/12 9:00:00 [facility] Renvela 2012-09-06 18:00:00 No Joseluis Van Lisa 2,400 mg, 3 tab, Route: PO, Drug form: TAB, TID-Meals, Dosing Weight 100, kg, Start date: 09/06/12 12:00:00, Duration: 30 day, Stop date: 10/06/12 8:00:00 [facility] NovoLog Mix 70/30 FlexPen 2012-09-06 18:00:00 No Joseluis E nrique Lisa 26 unit, 0.26 mL, Route: SUB-Q, Drug form: INJ, Lunch, Dosing Weight 100, kg, Start date: 09/06/12 12:00:00, Duration: 30 day, Stop date: 10/05/12 12:00:00 [facility] Robaxin 2012-09-06 15:00:00 No Joseluis Van Lisa 750 mg, 1 tab, Route: PO, Drug form: TAB, TID, Dosing Weight 100, kg, Start date: 09/06/12 9:00:00, Duration: 30 day, Stop date: 10/05/12 17:00:00 [facility] docusate 2012-09-06 15:00:00 No Joseluis Van Lisa 100 mg, 1 cap, Route: PO, Drug form: CAP, BID, Dosing Weight 100, kg, Start date: 09/06/12 9:00:00, Duration: 30 day, Stop date: 10/05/12 17:00:00 [facility] Kayexalate 2012-09-06 14:52:00 No Enoch Joseph 30 gm, 120 mL, Route: PO, Drug form: SUSP, ONCE, Dosing Weight 100, kg, Start date: 09/06/12 8:52:00, Stop date: 09/06/12 8:52:00 [facility] acetaminophen 2012-09-06 05:14:00 No Octavio Mauro 650 mg, 2 tab, Route: PO, Drug form: TAB, Q4H, Dosing Weight 100, kg, PRN Pain/Fever, Start date: 09/05/12 23:14:00, Duration: 30 day, Stop date: 10/05/12 23:13:00 [facility] Zofran 2012-09-06 05:13:00 No Octavio Mauro 4 mg, 2 mL, Route: IV, Drug form: INJ, Q4H, Dosing Weight 100, kg, PRN Nausea, Start date: 09/05/12 23:13:00, Duration: 30 day, Stop date: 10/05/12 23:12:00 [facility] morphine Sulfate 2012-09-06 05:11:00 No Joseluis Van Mo k 4 mg, 2 mL, Route: IVP, Drug form: INJ, Q3H, Dosing Weight 100, kg, PRN Pain, Start date: 09/05/12 23:11:00, Duration: 30 day, Stop date: 10/05/12 23:10:00 [facility] heparin 2012-09-06 03:00:00 No Joseluis Van Lisa 5,000 unit, 1 mL, Route: SUB-Q, Drug form: INJ, Q12H, Dosing Weight 100, kg, Start date: 09/05/12 21:00:00, Duration: 30 day, Stop date: 10/05/12 9:00:00 [facility] SoluMedrol 2012-09-06 03:00:00 No Joseluis Van Lisa 40 mg, 1 mL, Route: IVP, Drug form: INJ, Q12H, Dosing Weight 100, kg, Start date: 09/05/12 21:00:00, Duration: 24 hr, Stop date: 09/06/12 9:00:00 [facility] carvedilol 25 mg oral tablet 2012-09-05 23:58:19 Yes [place] n Van Lisa 50 mg, 2 tab, PO, H-Mb-Dr, 180 tab, Substitution Allowed, TAB [facility] Robaxin + Sodium Chloride 0.9% IV 100 mL 2012-09-05 23:31: 00 No Joseluis Van Lisa 1,000 mg, 10 mL, Route: IV, Drug form: INJ, ONCE, Dosing Weight 100, kg, Start date: 09/05/12 17:31:00, Stop date: 09/05/12 17:31:00 [facility] Ativan 2012-09-05 23:30:00 No Joseluis Van Lisa 1 mg, 0.5 mL, Route: IVP, Drug form: INJ, ONCALL, Dosing Weight 100, kg, Start date: 09/05/12 17:30:00, Duration: 1 doses or times, prior to MRI [facility] insulin aspart 2012-09-05 23:29:00 No Joseluis Van Lisa 3 unit, 0.03 mL, Route: SUB-Q, Drug form: SOLN, TID-Before Meals, Dosing Weight 100, kg, PRN Blood Glucose Results, Start date: 09/05/12 17:29:00, Duration: 30 day, Stop date: 10/05/12 17:28:00 [facility] Dextrose 50% Syringe 2012-09-05 23:29:00 No Joseluis Enriqu e Lisa 25 gm, 50 mL, Route: IVP, Drug Form: INJ, Dosing Weight 100, kg, PRN, PRN Blood Glucose Results, Start date: 09/05/12 17:29:00, Duration: 30 day, Stop date: 10/05/12 17:28:00 [facility] glucagon 2012-09-05 23:29:00 No Joseluis Van Lisa 1 mg, Route: IM, Drug form: PDR/INJ, PRN, Dosing Weight 100, kg, PRN Blood Glucose Results, Start date: 09/05/12 17:29:00, Duration: 30 day, Stop date: 10/05/12 17:28:00 [facility] acetaminophen-hydrocodone 325 mg-5 mg oral tablet 23:26:00 No Joseluis Van Lisa 1 tab, Route: P O, Drug Form: TAB, Dosing Weight 100, kg, Q4H, PRN Pain Score 1-3, Start date: 09/05/12 17:26:00, Duration: 30 day, Stop date: 10/05/12 17:25:00 [facility] acetaminophen 2012-09-05 23:26:00 No Joseluis Van Lisa 650 mg, 2 tab, Route: PO, Drug form: TAB, Q4H, Dosing Weight 100, kg, PRN Pain/Fever, Start date: 09/05/12 17:26:00, Duration: 30 day, Stop date: 10/05/12 17:25:00 [facility] ondansetron 2012-09-05 23:26:00 No Joseluis Van Lisa 4 mg, 2 mL, Route: IVP, Drug form: INJ, Q6H, Dosing Weight 100, kg, PRN Nausea & Vomiting, Start date: 09/05/12 17:26:00, Duration: 30 day, Stop date: 10/05/12 17:25:00 [facility] morphine Sulfate 2012-09-05 23:26:00 No Joseluis Van Mo k 2 mg, 1 mL, Route: IVP, Drug form: INJ, Q3H, Dosing Weight 100, kg, PRN Pain Score 4-6, Start date: 09/05/12 17:26:00, Duration: 30 day, Stop date: 10/05/12 17:25:00 [facility] temazepam 2012-09-05 23:26:00 No Joseluis Van Lisa 15 mg, 1 cap, Route: PO, Drug form: CAP, Bedtime, Dosing Weight 100, kg, PRN Insomnia, Start date: 09/05/12 17:26:00, Duration: 30 day, Stop date: 10/05/12 17:25:00 [facility] ALPRAZOLam 2012-09-05 23:26:00 No Joseluis Van Lisa 0.25 mg, 1 tab, Route: PO, Drug form: TAB, Q8H, Dosing Weight 100, kg, PRN Anxiety, Start date: 09/05/12 17:26:00, Duration: 30 day, Stop date: 10/05/12 17:25:00 [facility] ondansetron 2012-09-05 22:13:00 No María Aprielle Guayanilla 4 mg, 2 mL, Route: IVP, Drug form: INJ, ONCE, Dosing Weight 100, kg, Priority: STAT, Start date: 09/05/12 16:13:00, Stop date: 09/05/12 16:13:00 [facility] morphine Sulfate 2012-09-05 22:13:00 No María Aprielle Aaliyah 4 mg, 2 mL, Route: IVP, Drug form: INJ, ONCE, Dosing Weight 100, kg, Priority: STAT, Start date: 09/05/12 16:13:00, Stop date: 09/05/12 16:13:00 [facility] cyclobenzaprine 2012-09-05 20:40:00 No María Aprielle Aaliyah 10 mg, 1 tab, Route: PO, Drug form: TAB, ONCE, Dosing Weight 100, kg, Priority: STAT, Start date: 09/05/12 14:40:00, Stop date: 09/05/12 14:40:00 [facility] morphine Sulfate 2012-09-05 20:40:00 No María Aprielle Aaliyah 4 mg, 2 mL, Route: IVP, Drug form: INJ, ONCE, Dosing Weight 100, kg, Priority: STAT, Start date: 09/05/12 14:40:00, Stop date: 09/05/12 14:40:00 [facility] Zyvox 2012-07-11 22:00:00 No Taso Mougouris 600 mg, 1 tab, Route: PO, Drug form: TAB, [id number], Dosing Weight 115.909, kg, Start date: 07/11/12 17:00:00, Duration: 30 day, Stop date: 08/10/12 5:00:00 [facility] Zyvox 600 mg oral tablet 2012-07-11 20:27:01 Yes Taso Mo ugouris 600 mg, 1 tab, PO, [id number], 20 tab, Substitution Allowed, TAB [facility] Renvela 2012-07-07 22:00:00 No Enoch Joseph 4 gm, 5 tab, Route: PO, Drug form: TAB, TID-Meals, Dosing Weight 115.909, kg, Start date: 07/07/12 17:00:00, Duration: 30 day, Stop date: 08/06/12 12:00:00 [facility] cefepime + Sodium Chloride 0.9% IV 100 mL 2012-07-07 20:00 :00 No Bilal Sarvat 1 gm, Route: IVP B, [id number], Dosing Weight 115.909, kg, (CrCl 10 - 29 ml/min), Start date: 07/07/12 15:00:00, Duration: 30 day, Stop date: 08/05/12 15:00:00 [facility] Epogen (ESRD) 2012-07-06 22:00:00 No Enoch Joseph 12,000 unit, 3 mL, Route: SUB-Q, Drug form: INJ, Q-M-W-F, Dosing Weight 115.909, kg, Start date: 07/06/12 17:00:00, Duration: 30 day, Stop date: 08/03/12 17:00:00 [facility] Zyvox 2012-07-05 20:00:00 No Gaxiola Amanda Cardenas 600 mg, 300 mL, Route: IVPB, Drug form: SOLN, [id number], Dosing Weight 115.909, kg, Start date: 07/05/12 15:00:00, Duration: 30 day, Stop date: 08/04/12 3:00:00 [facility] phenol topical 1.4% spray 2012-07-05 15:52:00 No Joseluislisa bhandarikamar Lisa 1 spray, Route: PO, PRN, Drug form: SPRY PRN Sore Throat, Start date: 07/05/12 10:52:00, Duration: 30 day, Stop date: 08/04/12 10:51:00 [facility] Cepacol Dual Relief Sore Throat Mint 5% topical spray 2012-07-05 15:47:00 No Joseluis Van Lisa 1 spray, [place]: TOP, Dosing Weight 115.909, kg, PRN, PRN Sore Throat, Start date: 07/05/12 10:47:00, Duration: 30 day, Stop date: 08/04/12 10:46:00 [facility] Ativan 2012-07-04 23:25:00 No Bilal Sarvat 2 mg, 1 mL, Route: IVP, Drug form: INJ, ONCE, Dosing Weight 115.909, kg, PRN Anxiety, Start date: 07/04/12 18:25:00, [employer]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 [facility] 2012-07-04 16:36:00 No Bilal Sarvat 2 mg, 1 mL, Route: IVP, Drug form: INJ, ONCE, Dosing Weight 115.909, kg, PRN Anxiety, Start date: 07/04/12 11:36:00 [facility] MiraLax 2012-07-04 00:58:00 No Faraz Cerna 17 gm, 1 pkt, Route: PO, Drug form: PWDR, Daily, PRN Constipation, Start date: 07/03/12 19:58:00, Duration: 30 day, Stop date: 08/02/12 19:57:00 [facility] Cipro 2012-07-03 23:00:00 No Gaxiola Amanda Cardenas 200 mg, 100 mL, Route: IVPB, Drug form: INJ, [id number], Dosing Weight 115.909, kg, Start date: 07/03/12 18:00:00, Duration: 30 day, Stop date: 08/02/12 6:00:00 [facility] cefepime + Sodium Chloride 0.9% IV 100 mL 2012-07-03 23:00 :00 No Minor Dominguezoc Cardenas 1 gm, Route: IVP B, [id number], Dosing Weight 115.909, kg, Start date: 07/03/12 18:00:00, Duration: 30 day, Stop date: 08/01/12 18:00:00 [facility] Insulin regular 2012-07-03 19:20:00 No Enoch Manning ar 8 unit, 0.08 mL, Route: IV, Drug form: INJ, ONCE, Dosing Weight 115.909, kg, Start date: 07/03/12 14:20:00, Stop date: 07/03/12 14:20:00 [facility] d50 syringe 2012-07-03 19:20:00 No Enoch Joseph 1 amp, Route: IV, Drug Form: INJ, Dosing Weight 115.909, kg, ONCE, Start date: 07/03/12 14:20:00, Stop date: 07/03/12 [facility] 0.083% inhalation solution 2012-07-03 19:20:00 No Enoch Joseph 4.98 mg, 6 mL, R oute: NEB, Drug form: SOLN, ONCE, Dosing Weight 115.909, kg, Start date: 07/03/12 14:20:00, Stop date: 07/03/12 14:20:00 [facility] Kayexalate 2012-07-03 15:34:00 No Taso Mougouris 30 gm, 120 mL, Route: PO, Drug form: SUSP, ONCE, Start date: 07/03/12 10:34:00, Stop date: 07/03/12 10:34:00 [facility] Ativan 2012-07-03 01:00:00 No Elise Ummichael Majmundar 2 mg, 1 mL, Route: IV, Drug form: INJ, ONCALL, Start date: 07/02/12 20:00:00, Duration: 1 doses or times [facility] Renvela 2012-07-02 17:30:00 No Enoch Joseph 3,200 mg, 4 tab, Route: PO, Drug form: TAB, TID-Meals, Dosing Weight 115.909, kg, Start date: 07/02/12 12:30:00, Duration: 30 day, Stop date: 08/01/12 12:00:00 [facility] Xanax 0.25 mg oral tablet 2012-07-02 17:14:00 No Enoch Ballda Joseph 0.25 mg, 1 tab, Route: PO, Drug form: TAB, TID, Dosing Weight 115.909, kg, PRN Anxiety, Start date: 07/02/12 12:14:00, Duration: 30 day, Stop date: 08/01/12 12:13:00 [facility] acetaminophen 325 mg oral tablet 2012-07-02 17:00:00 No Daphney Aboussleman 2 tab, Route: PO, Q4H, Dosin g Weight 115.909, kg, Start date: 07/02/12 12:00:00, Duration: 30 day, Stop date: 08/01/12 8:00:00 [facility] acetaminophen 325 mg oral tablet 2012-07-02 16:38:00 No Daphney Aboussleman 650 mg, 2 tab, Route: PO, Dr ug form: TAB, PRN, Dosing Weight 115.909, kg, PRN as needed for pain, Start date: 07/02/12 11:38:00, Stop date: 08/01/12 11:37:00 [facility] docusate sodium 100 mg oral capsule 2012-07-02 16:21:00 No Daphney Aboussleman 100 mg, 1 cap, R oute: PO, Drug form: CAP, BID, Dosing Weight 115.909, kg, PRN Constipation, Start date: 07/02/12 11:21:00, Duration: 30 day, Stop date: 08/01/12 11:20:00 [facility] Novolog 70/30 2012-07-02 12:50:00 No Enoch Ballda Rajesh 40 unit, 0.4 mL, Route: SUB-Q, Drug form: INJ, Before Breakfast, Dosing Weight 115.909, kg, Start date: 07/02/12 7:50:00, Duration: 30 day, Stop date: 07/31/12 7:50:00 [facility] ceftriaxone + Sodium Chloride 0.9% IV 100 mL 2012-07-02 05 :00:00 No Bilal Sarvat 1 gm, Route: IVP B, [id number], Dosing Weight 115.909, kg, Start date: 07/02/12 0:00:00, Duration: 30 day, Stop date: 07/31/12 0:00:00 [facility] simvastatin 2012-07-02 02:00:00 No Joselodaroxann Ballda Joseph 40 mg, 1 tab, Route: PO, Drug form: TAB, Bedtime, Dosing Weight 115.909, kg, Start date: 07/01/12 21:00:00, Duration: 30 day, Stop date: 07/30/12 21:00:00 [facility] Levemir 2012-07-02 02:00:00 No Ramdas Nell Joseph 70 unit, 0.7 mL, Route: SUB-Q, Drug form: INJ, Bedtime, Dosing Weight 115.909, kg, Start date: 07/01/12 21:00:00, Duration: 30 day, Stop date: 07/30/12 21:00:00 [facility] Lyrica 2012-07-01 22:00:00 No Elise Yusuf Majmundar 25 mg, 1 cap, Route: PO, Drug form: CAP, QPM, Dosing Weight 115.909, kg, Start date: 07/01/12 17:00:00, Duration: 30 day, Stop date: 07/30/12 17:00:00 [facility] Novolog 70/30 2012-07-01 21:50:00 No Joselodaroxann Ballda Joseph 45 unit, 0.45 mL, Route: SUB-Q, Drug form: INJ, Before Dinner, Dosing Weight 115.909, kg, Start date: 07/01/12 16:50:00, Duration: 30 day, Stop date: 07/30/12 16:50:00 [facility] Renvela 2012-07-01 17:00:00 No Ramdas Nell Joseph 2,400 mg, 3 tab, Route: PO, Drug form: TAB, TID-Meals, Dosing Weight 115.909, kg, Start date: 07/01/12 12:00:00, Duration: 30 day, Stop date: 07/31/12 8:00:00 [facility] oxybutynin 2012-07-01 17:00:00 No Ramdas Nell Joseph 5 mg, 1 tab, Route: PO, Drug form: TAB, Q12H, Dosing Weight 115.909, kg, Start date: 07/01/12 12:00:00, Duration: 30 day, Stop date: 07/31/12 9:00:00 [facility] Nephro-Melodie Rx 2012-07-01 17:00:00 No Enoch Camejo Kuma r 1 tab, Route: PO, Drug Form: TAB, Dosing Weight 115.909, kg, Lunch, Start date: 07/01/12 12:00:00, Duration: 30 day, Stop date: 07/30/12 12:00:00 [facility] lisinopril 2012-07-01 17:00:00 No Enoch Joseph 20 mg, 1 tab, Route: PO, Drug form: TAB, Q12H, Dosing Weight 115.909, kg, Start date: 07/01/12 12:00:00, Duration: 30 day, Stop date: 07/31/12 9:00:00 [facility] gabapentin 100 mg oral capsule 2012-07-01 17:00:00 No Elise Umakant Majmundar 200 mg, 2 cap, R oute: PO, Drug form: CAP, Q12H, Dosing Weight 115.909, kg, Start date: 07/01/12 12:00:00, Stop date: 07/31/12 9:00:00 [facility] NovoLog Mix 70/30 FlexPen 2012-07-01 16:50:00 No Enoch Joseph 26 unit, 0.26 mL, Route: SUB-Q, Drug form: INJ, Before Lunch, Dosing Weight 115.909, kg, Start date: 07/01/12 11:50:00, Duration: 30 day, Stop date: 07/30/12 11:50:00 [facility] pneumococcal 23-valent vaccine 2012-07-01 14:00:00 No S YSTEM SYSTEM 0.5 ml, Route: IM, Drug Form: INJ, Daily, Start date: 07/01/12 9:00:00, Duration: 1 doses or times, Stop date: 07/01/12 9:00:00 [facility] atropine 2012-07-01 10:22:00 No Ramdas Nell Joseph 0.5 mg, 5 mL, Route: IVP, Drug form: INJ, PRN, PRN Bradycardia, Start date: 07/01/12 5:22:00, Duration: 30 day, Stop date: 07/31/12 5:21:00 [facility] nitroglycerin 0.4 mg sublingual tablet 2012-07-01 10:22:00 No Ramdas Nell Joseph 0.4 mg, 1 tab, R oute: SL, Drug form: TAB, Q5Min, PRN Chest Pain, Start date: 07/01/12 5:22:00, Duration: 30 day, Stop date: 07/31/12 5:21:00 [facility] Lyrica 2012-07-01 09:08:03 Yes Ramdas Nell Joseph 25 mg, PO, Daily, Substitution Allowed [facility] Saline Flush 0.9% 2012-07-01 08:20:00 No Ramdas Nell K umar 5 ml, Route: IVP, Drug Form: INJ, Dosing Weight 115.909, kg, PRN, PRN Line Flush, Start date: 07/01/12 3:20:00, Duration: 30 day, Stop date: 07/31/12 3:19:00 [facility] morphine Sulfate 2012-07-01 08:20:00 No Enoch pulido 2 mg, 1 mL, Route: IVP, Drug form: INJ, Q3H, Dosing Weight 115.909, kg, PRN Pain Score 4-6, Start date: 07/01/12 3:20:00, Stop date: 07/31/12 3:19:00 [facility] ondansetron 2012-07-01 08:20:00 No Ramdas Nell Joseph 4 mg, 2 mL, Route: IVP, Drug form: INJ, Q6H, Dosing Weight 115.909, kg, PRN Nausea & Vomiting, Start date: 07/01/12 3:20:00, Duration: 30 day, Stop date: 07/31/12 3:19:00 [facility] ceftriaxone + Sodium Chloride 0.9% IV 100 mL 2012-07-01 04 :17:00 No Perico Sharma 1 gm, Route: IVP B, ONCE, Dosing Weight 115.909, kg, Start date: 06/30/12 23:17:00, Stop date: 06/30/12 23:17:00 [facility] morphine Sulfate 2012-07-01 04:10:00 No Perico Sharma 2 mg, 0.2 mL, Route: IVP, Drug form: INJ, ONCE, Dosing Weight 115.909, kg, Priority: STAT, Start date: 06/30/12 23:10:00, Stop date: 06/30/12 23:10:00 [facility] Novolog 70/30 2012-07-01 04:05:51 Yes Ramdas Nell Joseph 45 unit, SUB- Q, Dinner, Substitution Allowed [facility] NovoLog Mix 70/30 FlexPen 2012-07-01 04:05:27 Yes Ramdas Nell Joseph 26 unit, SUB-Q, Lunch, Substitution Allowed [facility] Novolog 70/30 2012-07-01 04:04:38 Yes Ramdas Nell Joseph 40 unit, SUB- Q, QAM, Substitution Allowed [facility] simvastatin 2012-07-01 04:04:14 Yes Ramdas Nell Joseph 40 mg, 1 tab, PO, Bedtime, 30 tab, Substitution Allowed [facility] amLODipine 2012-07-01 04:03:57 Yes 5 mg, PO, Daily, Substitution Allowed [facility] lisinopril 20 mg oral tablet 2012-07-01 04:03:43 Yes Ramdas Nell Joseph 20 mg, 1 tab, PO, BID, 30 tab, Substitution Allowed, TAB [facility] oxybutynin 5 mg oral tablet 2012-07-01 04:03:21 Yes Ramdas Nell Joseph 5 mg, 1 tab, PO, BID, 30 tab, Substitution Allowed, TAB [facility] gabapentin 100 mg oral capsule 2012-07-01 04:02:42 Yes Ramdas Nell Joseph 100 mg, 1 cap, PO, BID, 240 cap, Substitution Allowed [facility] carvedilol 25 mg oral tablet 2012-07-01 04:01:59 Yes 50 mg, 2 tab, PO, BID, 60 tab, Substitution Allowed, TAB [facility] ropinirole 0.25 mg oral tablet 2012-07-01 04:01:33 Yes 0.25 mg, 1 tab, PO, TID, 90 tab, Substitution Allowed, TAB [facility] Renvela 800 mg oral tablet 2012-07-01 04:01:13 Yes Alisha Joseph 2,400 mg, 3 tab, PO, TID-Meals, 270 tab, Substitution Allowed, TAB [facility] albuterol 0.083% inhalation solution 2012-07-01 02:31:00 No Perico Sharam 19.92 mg, 24 mL, Rou te: NEB, Drug form: SOLN, ONCE, Dosing Weight 115.909, kg, Start date: 06/30/12 21:31:00, Stop date: 06/30/12 21:31:00 [facility] Dextrose 50% Syringe 2012-07-01 02:31:00 No Perico Bess sen 50 gm, 100 mL, Route: IV, Drug Form: INJ, Dosing Weight 115.909, kg, ONCE, Start date: 06/30/12 21:31:00, Stop date: 06/30/12 21:31:00 [facility] insulin regular human recombinant 100 units/mL injectable so lution 2012-07-01 02:31:00 No Perico Sharma 10 un it, 0.1 mL, Route: IVP, Drug form: INJ, ONCE, Dosing Weight 115.909, kg, Start date: 06/30/12 21:31:00, Stop date: 06/30/12 21:31:00 [facility] calcium gluconate + Sodium Chloride 0.9% IV 100 mL 2012-06 02:31:00 No Perico Sharma 2 gm, 20 mL, Rou te: IV, ONCE, Dosing Weight 115.909, kg, Start date: 06/30/12 21:31:00, Stop date: 06/30/12 21:31:00 [facility] sodium polystyrene sulfonate 2012-07-01 02:31:00 No Cruz Sharma 30 gm, 120 mL, Route: PO, Drug form: SUSP, ONCE, Dosing Weight 115.909, kg, Start date: 06/30/12 21:31:00, Duration: 1 doses or times, Stop date: 06/30/12 21:31:00 [facility] Saline Flush 0.9% 2012-07-01 01:29:00 No Enoch Gonsales umar 5 ml, Route: IVP, Drug Form: INJ, Dosing Weight 115.909, kg, PRN, PRN Line Flush, Start date: 06/30/12 20:29:00, Duration: 24 hr, Stop date: 07/01/12 20:28:00 [facility] Epogen (ESRD) 2012-02-17 22:00:00 No Enoch Joseph 10,000 unit, 1 mL, Route: SUB-Q, Drug form: INJ, Q-M-W-F, Start date: 02/17/12 17:00:00, Duration: 30 day, Stop date: 03/16/12 17:00:00 [facility] cefepime 2012-02-15 17:00:00 No Taso Mougouris 1 gm, Route: IVPB, [id number], Start date: 02/15/12 12:00:00, Duration: 30 day, Stop date: 03/16/12 0:00:00 [facility] Reglan 5 mg oral tablet 2012-02-15 16:30:00 No Ezequiel I Kafrouni 5 mg, 1 tab, Route: PO, Drug form: TAB, Before Meals & Bedtime, Start date: 02/15/12 11:30:00, Duration: 30 day, Stop date: 03/16/12 7:30:00 [facility] tramadol 50 mg oral tablet 2012-02-15 16:05:00 No Alisha Joseph 50 mg, 1 tab, Route: PO, Drug form: TAB, Q12H, PRN as needed for pain, Start date: 02/15/12 11:05:00, Duration: 30 day, Stop date: 03/16/12 11:04:00 [facility] lactulose 2012-02-15 14:00:00 No Sara Ryder 20 gm, 30 mL, Route: PO, Drug form: SYRP, Daily, Start date: 02/15/12 9:00:00, Duration: 30 day, Stop date: 03/15/12 9:00:00 [facility] LR IV 500 mL 2012-02-15 12:39:00 No Ezequiel I Kafrouni 500 mL, Rate: 125 ml/hr, Infuse over: 4 hr, Route: IV, Dosing Weight 81.818 kg, Total Volume: 500, Start date: 02/15/12 7:39:00, Duration: 30 day, Stop date: 03/16/12 7:38:00 [facility] LR IV 500 mL 500 mL 2012-02-15 12:39:00 No Ezequiel ryan 500 mL, Rate: 40 ml/hr, Infuse over: 12.5 hr, Route: IV, Dosing Weight 81.818 kg, Total Volume: 500, Start date: 02/15/12 7:39:00, Duration: 30 day, Stop date: 03/16/12 7:38:00 [facility] Kayexalate 2012-02-14 21:24:00 No Enoch Joseph 30 gm, 120 mL, Route: PO, Drug form: SUSP, ONCE, Start date: 02/14/12 16:24:00, Stop date: 02/14/12 16:24:00 [facility] lactulose 2012-02-13 23:00:00 No Sara Ryder 20 gm, 30 mL, Route: PO, Drug form: SYRP, Q6H, Start date: 02/13/12 18:00:00, Duration: 6 doses or times, Stop date: 02/15/12 0:00:00 Shahzad tello [place] MiraLax 2012-02-11 22:00:00 No Ezequiel Enriquez 17 gm, 1 pkt, Route: PO, Drug form: PWDR, BID, Start date: 02/11/12 17:00:00, Duration: 30 day, Stop date: 03/12/12 9:00:00 [facility] Dulcolax Laxative 2012-02-11 17:14:00 No Ezequiel Abad uni 10 mg, 1 supp, Route: ID, Drug form: SUPP, ONCE, Start date: 02/11/12 12:14:00, Stop date: 02/11/12 12:14:00 [facility] carvedilol 12.5 mg oral tablet 2012-02-11 16:20:10 Yes T aso Mougouris 12.5 mg, 1 tab, PO, Q12H, 60 tab, Substitution Allowed, TAB [facility] Bentyl 20 mg oral tablet 2012-02-11 16:19:04 Yes Taso Mo ugouris 20 mg, 1 tab, PO, QID, 30 tab, Substitution Allowed, TAB [facility] [place] 10/325 oral tablet 2012-02-11 16:18:39 Yes Taso Mo ugouris 1 tab, PO, Q4H, PRN, 30 tab, Pain, Substitution Allowed, Maintenance, TAB [facility] [place] 10/325 oral tablet 2012-02-11 16:17:00 No Taso Mo ugouris 1 tab, Route: PO, Drug Form: TAB, Q4H, PRN Pain, Start date: 02/11/12 11:17:00, Duration: 30 day, Stop date: 03/12/12 11:16:00 [facility] carvedilol 2012-02-11 02:00:00 No Ramdaroxann Ballda Joseph 12.5 mg, 1 tab, Route: PO, Drug form: TAB, Q12H, Start date: 02/10/12 21:00:00, Duration: 30 day, Stop date: 03/11/12 9:00:00 Bren power Monroemarcia Bonilla 2012-02-10 22:00:00 No Taso Mougouris 20 mg, 1 tab, Route: PO, Drug form: TAB, QID, Start date: 02/10/12 17:00:00, Duration: 30 day, Stop date: 03/11/12 13:00:00 [facility] hydrALAZINE 2012-02-08 06:54:00 No Jonathan mckeon 20 mg, 1 mL, Route: IV, Drug form: INJ, Q6H, PRN Elevated BP, Start date: 02/08/12 1:54:00, Duration: 30 day, Stop date: 03/09/12 1:53:00 [facility] docusate sodium 100 mg oral capsule 2012-02-06 17:30:00 No Dorene Le Jr 100 mg, 1 cap, Route: PO, Drug form: CAP, BID, Start date: 02/06/12 12:30:00, Duration: 30 day, Stop date: 03/07/12 9:00:00 [facility] Phenergan 2012-02-06 02:01:00 No Gaxiola Amanda Cardenas 12.5 mg, 0.5 mL, Route: IVPB, Q4H, PRN Nausea & Vomiting, Start date: 02/05/12 21:01:00, Duration: 30 day, Stop date: 03/06/12 21:00:00 [facility] Cipro 2012-02-03 18:00:00 No Rica Sarker 250 mg, 1 tab, Route: PO, Drug form: TAB, Q48H, Start date: 02/03/12 13:00:00, Duration: 30 day, Stop date: 03/02/12 13:00:00 [facility] Detrol 2012-02-02 14:00:00 No Rica Sarker 4 mg, 2 tab, Route: PO, Drug form: TAB, Daily, Start date: 02/02/12 9:00:00, Duration: 30 day, Stop date: 03/02/12 9:00:00 [facility] pravastatin 2012-02-02 02:00:00 No Rica Sarker 80 mg, 4 tab, Route: PO, Drug form: TAB, Bedtime, Start date: 02/01/12 21:00:00, Duration: 30 day, Stop date: 03/01/12 21:00:00 [facility] 2012-02-02 02:00:00 No Rica Sarker 40 unit, 0.4 mL, Route: SUB-Q, Drug form: INJ, Bedtime, Start date: 02/01/12 21:00:00, Duration: 30 day, Stop date: 03/01/12 21:00:00 [facility] jero carvedilol 2012-02-02 02:00:00 No Enoch Camejo Joseph 6.25 mg, 2 tab, Route: PO, Drug form: TAB, Q12H, Start date: 02/01/12 21:00:00, Duration: 30 day, Stop date: 03/02/12 9:00:00 Bren Camarena clonidine 0.2 mg oral tablet 2012-02-01 23:00:00 No Chelsey za Sarker 0.2 mg, 1 tab, Route: PO, Drug form: TAB, [id number], Start date: 02/01/12 18:00:00, Duration: 30 day, Stop date: 03/02/12 6:00:00 [facility] Jessicaol LA 2012-02-01 22:00:00 No Rica Sarker 4 mg, 1 cap, Route: PO, Drug form: CAP, QPM, Start date: 02/01/12 17:00:00, Duration: 30 day, Stop date: 03/01/12 17:00:00 [facility] riboflavin 2012-02-01 22:00:00 No Rica Sarker 100 mg, 1 tab, Route: PO, Drug form: TAB, Daily, Start date: 02/01/12 17:00:00, Duration: 30 day, Stop date: 03/02/12 9:00:00 [facility] Vitamin B6 2012-02-01 22:00:00 No Rica Sarker 100 mg, 1 tab, Route: PO, Drug form: TAB, Daily, Start date: 02/01/12 17:00:00, Duration: 30 day, Stop date: 03/02/12 9:00:00 [facility] folic acid 2012-02-01 22:00:00 No Rica Sarker 1 mg, 1 tab, Route: PO, Drug form: TAB, Daily, Start date: 02/01/12 17:00:00, Duration: 30 day, Stop date: 03/02/12 9:00:00 [facility] Vitamin B12 2012-02-01 22:00:00 No Rica Sarker 1,000 microgram, 2 tab, Route: PO, Drug form: TAB, Daily, Start date: 02/01/12 17:00:00, Duration: 30 day, Stop date: 03/02/12 9:00:00 Angelitokalyn hollis [place] PhosLo Gelcap 2012-02-01 22:00:00 No Rica Sarker 2,001 mg, 3 cap, Route: PO, Drug form: CAP, TID-Meals, Start date: 02/01/12 17:00:00, Duration: 30 day, Stop date: 03/02/12 12:00:00 [facility] [place] [facility] 2012-02-01 21:30:00 No Rica Sarker 325 mg, 1 tab, Route: PO, Drug form: ECTAB, TID-Before Meals, Start date: 02/01/12 16:30:00, Duration: 30 day, Stop date: 03/02/12 11:30:00 [facility] gemfibrozil 2012-02-01 21:30:00 No Rica Sarker 600 mg, 1 tab, Route: PO, Drug form: TAB, BID-Before Meals, Start date: 02/01/12 16:30:00, Duration: 30 day, Stop date: 03/02/12 7:30:00 Angelito Camarena Dextrose 50% in Water IV 2012-02-01 20:23:00 No Rica S arker 50 mL, Route: IVP, Start date: 02/01/12 15:23:00, Duration: 30 day, Stop date: 03/02/12 15:22:00, PRN Blood Glucose Results Praful Camarena glucagon 2012-02-01 20:23:00 No Rica Sarker 1 mg, Route: IM, Drug form: PDR/INJ, PRN, PRN Blood Glucose Results, Start date: 02/01/12 15:23:00, Duration: 30 day, Stop date: 03/02/12 15:22:00 [facility] NovoLog FlexPen 2012-02-01 20:23:00 No Rica Sarker 6 unit, 0.06 mL, Route: SUB-Q, Drug form: SOLN, Sliding Scale, PRN Blood Glucose Results, Start date: 02/01/12 15:23:00, Duration: 30 day, Stop date: 03/02/12 15:22:00 [facility] NovoLog FlexPen 2012-02-01 20:22:00 No Rica Sarker 1 unit, 0.01 mL, Route: SUB-Q, Drug form: SOLN, Sliding Scale, PRN Blood Glucose Results, Start date: 02/01/12 15:22:00, Duration: 30 day, Stop date: 03/02/12 15:21:00 [facility] gabapentin 300 mg oral capsule 2012-02-01 20:00:00 No A ziza Sarker 300 mg, 1 cap, Route: PO, Drug form: CAP, Q12H, Start date: 02/01/12 15:00:00, Duration: 30 day, Stop date: 03/02/12 9:00:00 [facility] furosemide 40 mg oral tablet 2012-02-01 20:00:00 No Chelsey za Sarker 40 mg, 1 tab, Route: PO, Drug form: TAB, Daily, Start date: 02/01/12 15:00:00, Duration: 30 day, Stop date: 03/02/12 9:00:00 [facility] diltiazem 2012-02-01 20:00:00 No Rica Sarker 240 mg, 1 cap, Route: PO, Drug form: ERCAP, Daily, Start date: 02/01/12 15:00:00, Duration: 30 day, Stop date: 03/02/12 9:00:00 [facility] Vitamin C 2012-02-01 20:00:00 No Rica Sarker 500 mg, 1 tab, Route: PO, Drug form: TAB, Daily, Start date: 02/01/12 15:00:00, Duration: 30 day, Stop date: 03/02/12 9:00:00 [facility] Dilaudid 2012-02-01 16:18:00 No Fran Power Agraharkar 2 mg, 1 mL, Route: IV, Drug form: INJ, Q4H, PRN Pain, Start date: 02/01/12 11:18:00, Duration: 30 day, Stop date: 03/02/12 11:17:00 [facility] belladonna-opium 16.2 mg-60 mg rectal suppository 15:07:00 No Edinson Dominique 1 supp, [place]: ID, Drug Form: SUPP, Q12H, PRN Spasm, Start date: 02/01/12 10:07:00, Duration: 30 day, Stop date: 03/02/12 10:06:00 [facility] clonidine 2012-02-01 05:56:00 No Octavio Mauro 0.1 mg, 1 tab, Route: PO, Drug form: TAB, Q6H, PRN Elevated BP, Start date: 02/01/12 0:56:00, Duration: 30 day, Stop date: 03/02/12 0:55:00 [facility] morphine Sulfate 2012-02-01 05:56:00 No Octavio Mauro 4 mg, 2 mL, Route: IVP, Drug form: INJ, Q3H, PRN Pain Score 7-10, Start date: 02/01/12 0:56:00, Duration: 30 day, Stop date: 03/02/12 0:55:00 [facility] [place] erythromycin ophthalmic 0.5% ointment 2012-02-01 04:04:06 Yes Taso Mougouris 0.5 inch, LEFT EYE, QID, 1 tube, Substit [place] Allowed Brennon Camarena Cipro 2012-02-01 03:33:00 No Michelet Pena 250 mg, 1 tab, Route: PO, Drug form: TAB, ONCE, Start date: 01/31/12 22:33:00, Stop date: 01/31/12 22:33:00 [facility] [place] morphine Sulfate 2012-02-01 02:40:00 No Shelrandi Juancarlos Pena 6 mg, 3 mL, Route: IVP, Drug form: INJ, ONCE, Priority: STAT, Start date: 01/31/12 21:40:00, Stop date: 01/31/12 21:40:00 M [facility] [place] morphine Sulfate 2012-02-01 00:06:00 No Michelet Pena 8 mg, 4 mL, Route: IVP, Drug form: INJ, ONCE, Priority: STAT, Start date: 01/31/12 19:06:00, Stop date: 01/31/12 19:06:00 [facility] mg oral tablet 2012-01-29 16:01:10 Yes Tas o Mougouris 500 mg, 1 tab, PO, Daily, 30 tab, Substitution Allowed, TAB [facility] PhosLo Gelcap 667 mg oral capsule 2012-01-29 16:01:00 Ye s Taso Mougouris 2,001 mg, 3 cap, PO, TID-Meals, 90 cap, Substitution A llowed, CAP [facility] carvedilol 3.125 mg oral tablet 2012-01-29 16:00:53 Yes Taso Mougouris 6.25 mg, 2 tab, PO, Q12H, 60 tab, Substitution Allowed, TAB [facility] Cipro 250 mg oral tablet 2012-01-29 16:00:44 Yes Taso Mo ugouris 250 mg, 1 tab, PO, [id number], 7 tab, Substitution Allowed, TAB [facility] Vitamin B12 500 mcg oral tablet 2012-01-29 16:00:37 Yes Taso Mougouris 1,000 microgram, 2 tab, PO, Daily, 30 tab, Substitution Allowed, TAB [facility] [place] ferrous sulfate 325 mg oral enteric coated tablet 16:00:31 Yes Taso Mougouris 325 mg, 1 tab, P O, TID-Before Meals, 90 tab, Substitution Allowed, ECTAB [facility] folic acid 1 mg oral tablet 2012-01-29 16:00:23 Yes Taso Mougouris 1 mg, 1 tab, PO, Daily, 30 tab, Substitution Allowed, TAB [facility] Ditropan XL 5 mg oral tablet, extended release 2012-01-29 16:00:00 Yes Taso Mougouris 15 mg, 3 tab, PO, Daily, 30 tab, Sub stitution Allowed, ERTAB [facility] Vitamin B6 100 mg oral tablet 2012-01-29 15:59:50 Yes Ta so Mougouris 100 mg, 1 tab, PO, Daily, 30 tab, Substitution Allowed, TAB [facility] riboflavin 100 mg oral tablet 2012-01-29 15:59:43 Yes Ta so Mougouris 100 mg, 1 tab, PO, Daily, 30 tab, Substitution Allowed, TAB [facility] Detrol LA 4 mg oral capsule, extended release 2012-01-29 1 5:59:32 Yes Taso Mougouris 4 mg, 1 cap, PO, Daily, 30 cap, Substitu tion Allowed [facility] Detrol LA 2012-01-27 14:28:00 No Edinson Watermangatt 4 mg, 1 cap, Route: PO, Drug form: CAP, Daily, Start date: 01/27/12 9:28:00, Duration: 30 day, Stop date: 02/26/12 9:00:00 Bren Camarena belladoconniea-opium 16.2 mg-60 mg rectal suppository 01:45:00 No Edinson Watermangatt 1 supp, Ro [place]: ID, Drug Form: SUPP, ONCE, Start date: 01/26/12 20:45:00, Stop date: 01/26/12 20:45:00 Brennon Camarena Ativan 2012-01-25 03:00:00 No Jeannine Forte Crystal 1 mg, 0.5 mL, Route: IV, Drug form: INJ, ONCALL, Start date: 01/24/12 22:00:00, Duration: 1 doses or times, Stop date: 01/25/12 [facility]:00[facility] No Callum Arguellesxochitl 17 gm, 1 pkt, Route: PO, Drug form: PWDR, Bedtime, Start date: 01/24/12 21:00:00, Duration: 30 day, Stop date: 02/22/12 21:00:00 [facility] Cipro 2012-01-24 17:00:00 No Nihal Essa Abdulla 250 mg, 1 tab, Route: PO, Drug form: TAB, [id number], Start date: 01/24/12 12:00:00, Duration: 30 day, Stop date: 02/21/12 12:00:[address] [facility] albuterol 0.083% inhalation solution 2012-01-24 16:43:00 No Nihal Essa Abdulla 2.49 mg, 3 mL, R oute: NEB, Drug form: SOLN, RQ6H, PRN Wheezing, PRN wheezing or SOB, Start date: 01/24/12 11:43:00, Duration: 30 day, Stop date: 02/23/12 11:42:00 [facility] Ditropan XL 2012-01-24 14:00:00 No Bob Guerrero 15 mg, 3 tab, Route: PO, Drug form: ERTAB, Daily, Start date: 01/24/12 9:00:00, Duration: 30 day, Stop date: 02/22/12 9:00:00 [facility] 2012-[facility] 22:20:00 No Sahba Q Bobby 17 gm, 1 pkt, Route: PO, Drug form: PWDR, ONCE, Start date: 01/23/12 17:20:00, Stop date: 01/23/12 17:20:00 [facility] Senokot 2012-01-23 21:59:00 No Sahba Q Bobby 17.2 mg, 2 tab, Route: PO, Drug form: TAB, Bedtime, PRN Constipation, Start date: 01/23/12 16:59:00, Duration: 30 day, Stop date: 02/22/12 16:58:00 [facility] Dilaudid 2012-01-23 21:58:00 No Sahba Q Bobby 2 mg, 1 mL, Route: IVP, Drug form: INJ, Q3H, PRN Pain, Start date: 01/23/12 16:58:00, Duration: 30 day, Stop date: 02/22/12 16:57:00 [facility] cefepime 2012-01-22 18:00:00 No Taso Mougouris 1 gm, Route: IVPB, [id number], Start date: 01/22/12 13:00:00, Duration: 30 day, Stop date: 02/21/12 1:00:00 [facility] Maxipime 2012-01-22 18:00:00 No Taso Mougouris 1 gm, Route: IVPB, [id number], Start date: 01/22/12 13:00:00, Duration: 30 day, Stop date: 02/20/12 13:00:00 [facility] Procrit 2012-01-20 14:00:00 No Sahba Q Bobby 10,000 unit, 1 mL, Route: SUB-Q, Drug form: INJ, Q-M-W-F, Start date: 01/20/12 9:00:00, Duration: 30 day, Stop date: 02/17/12 9:00:00 [facility] 2012-01-20 13:00:00 No Sahba Q Bobby 325 mg, 1 tab, Route: PO, Drug form: ECTAB, TID-Before Meals, Start date: 01/20/12 8:00:00, Duration: 30 day, Stop date: 02/18/12 16:30:00 [facility] Venofer 2012-01-20 01:00:00 No Sahba Q Bobby 200 mg, Route: IV, Drug form: INJ, Daily, Start date: 01/19/12 20:00:00, Duration: 4 day, Stop date: 01/22/12 20:00:00 [facility] Lasix 2012-01-14 22:50:00 No Sahba Q Bobby 20 mg, 2 mL, Route: IVP, Drug form: INJ, PRN, PRN Blood Transfusion, Start date: 01/14/12 17:50:00, Duration: 2 doses or times, Stop date: Limited # of times [facility] Colace 100 mg oral capsule 2012-01-14 22:00:00 No Taso Mougouris 100 mg, 1 cap, Route: PO, Drug form: CAP, BID, Start date: 01/14/12 17:00:00, Duration: 30 day, Stop date: 02/13/12 9:00:00 [facility] Dulcolax Laxative 2012-01-14 19:23:00 No Taso Mougouris 10 mg, 1 supp, Route: ID, Drug form: SUPP, Daily, PRN Constipation, Start date: 01/14/12 14:23:00, Stop date: 02/13/12 20:00:00 M [facility] [place] Fleet Enema 2012-01-14 19:23:00 No Taso Mougouris 133 ml, Route: ID, ONCE, Start date: 01/14/12 14:23:00, Stop date: 01/14/12 14:23:00 [facility] lactulose 2012-01-14 19:23:00 No Taso Mougouris 20 gm, 30 ml, Route: PO, Drug Form: SYRP, Daily, PRN Constipation, Start date: 01/14/12 14:23:00, Duration: 30 day, Stop date: 02/13/12 14:22:00 [facility] Lasix 2012-01-14 18:49:00 No Sahba Q Bobby 20 mg, 2 mL, Route: IV, Drug form: INJ, ONCALL, PRN Blood Transfusion, Start date: 01/14/12 13:49:00, Duration: 24 hr, Stop date: 01/15/12 13:48:00 [facility] Sodium Chloride 0.9% IV 2012-01-14 18:48:00 No Sahba Q Bobby IV, 30 ml/hr, PRN, PRN Blood Transfusion, Start date: 01/14/12 13:48:00, Duration: 24, 250 ml [facility] Lasix 2012-01-14 14:45:00 No Sahba Q Bobby 20 mg, 2 mL, Route: IV, Drug form: INJ, After Transfusion, PRN Blood Transfusion, Start date: 01/14/12 9:45:00, Duration: 1 day, Stop date: 01/15/12 9:44:00 [facility] belladonna-opium 16.2 mg-60 mg rectal suppository 14:44:00 No Edinson Watermanmei 1 supp, [place]: ID, Drug Form: SUPP, Q6H, PRN Spasm, Start date: 01/14/12 9:44:00, Stop date: 01/27/12 20:00:00 [facility] PhosLo Gelcap 2012-01-11 13:00:00 No Enoch Joseph 2,001 mg, 3 cap, Route: PO, Drug form: CAP, TID-Meals, with meals, Start date: 01/11/12 8:00:00, Duration: 30 day, Stop date: 02/09/12 17:00:00 [facility] furosemide 100 mg + Sodium Chloride 0.9% IV 90 mL 01:00:00 No Enoch Joseph 90 mL, Rate: 10 ml/hr, Infuse over: 10 hr, Route: IV, Dosing Weight 100.227 kg, Total Volume: 100, Start date: 01/10/12 20:00:00, Duration: 30 day, Stop date: 02/09/12 19:59:00 [facility] Lasix 2012-01-10 23:30:00 No Enoch Camejo Joseph 80 mg, 8 mL, Route: IVP, Drug form: INJ, ONCE, Start date: 01/10/12 18:30:00, Stop date: 01/10/12 18:30:00 [facility] sodium bicarbonate 8.4% 2012-01-10 23:00:00 No Enoch Arringtona Rajesh 50 mEq, 50 mL, Route: IV, Drug Form: INJ, ONCE, Start date: 01/10/12 18:00:00, Stop date: 01/10/12 18:00:00 [facility] Kayexalate 2012-01-10 15:39:00 No Enoch Joseph 30 gm, 120 mL, Route: PO, Drug form: SUSP, ONCE, Start date: 01/10/12 10:39:00, Stop date: 01/10/12 10:39:00 [facility] Levemir 2012-01-10 02:00:00 No Rica Sarker 44 unit, 0.44 mL, Route: SUB-Q, Drug form: INJ, Bedtime, Start date: 01/09/12 21:00:00, Duration: 30 day, Stop date: 02/07/12 21:00:00 [facility] sodium bicarbonate 325 mg oral tablet 2012-01-09 22:00:00 No Enoch Ballda Joseph 650 mg, 1 tab, R oute: PO, Drug Form: TAB, BID, Start date: 01/09/12 17:00:00, Duration: 30 day, Stop date: 02/08/12 9:00:00 [facility] calcium gluconate 2012-01-09 21:34:00 No Rica Sarker 1,000 mg, 10 mL, Route: IVPB, ONCE, Start date: 01/09/12 16:34:00, Stop date: 01/09/12 16:34:00 [facility] Vitamin C 2012-01-09 14:00:00 No Sonnyba Q Bobby 500 mg, 1 tab, Route: PO, Drug form: TAB, Daily, Start date: 01/09/12 9:00:00, Duration: 30 day, Stop date: 02/07/12 9:00:00 [facility] folic acid 1 mg oral tablet 2012-01-09 14:00:00 No Sahb a Q Bobby 1 mg, 1 tab, Route: PO, Drug form: TAB, Daily, Start date: 01/09/12 9:00:00, Duration: 30 day, Stop date: 02/07/12 9:00:00 [facility] Vitamin B12 2012-01-09 14:00:00 No Sahba Q Bobby 1,000 microgram, 2 tab, Route: PO, Drug form: TAB, Daily, Start date: 01/09/12 9:00:00, Duration: 30 day, Stop date: 02/07/12 9:00:00 Angelito drewl [place] riboflavin 2012-01-09 14:00:00 No Sahba Q Bobby 100 mg, 1 tab, Route: PO, Drug form: TAB, Daily, Start date: 01/09/12 9:00:00, Duration: 30 day, Stop date: 02/07/12 9:00:00 [facility] Vitamin B6 2012-01-09 14:00:00 No Sahba Q Bobby 100 mg, 1 tab, Route: PO, Drug form: TAB, Daily, Start date: 01/09/12 9:00:00, Duration: 30 day, Stop date: 02/07/12 9:00:00 [facility] Lasix 2012-01-09 02:00:00 No Ramdas Nell Joseph 80 mg, 8 mL, Route: IVP, Drug form: INJ, Q12H, Start date: 01/08/12 21:00:00, Duration: 30 day, Stop date: 02/07/12 9:00:00 [facility] ferrous sulfate 2012-01-08 21:30:00 No Sahba Q Bobby 325 mg, 1 tab, Route: PO, Drug form: ECTAB, TID-Before Meals, Start date: 01/08/12 16:30:00, Duration: 30 day, Stop date: 02/07/12 11:30:00 [facility] acetaminophen-hydrocodone 325 mg-5 mg oral tablet 20:49:00 No Yanick Gotti 2 tab, Rou te: PO, Drug Form: TAB, Q6H, PRN Pain, Start date: 01/08/12 15:49:00, Duration: 30 day, Stop date: 02/07/12 15:48:00 [facility] PhosLo Gelcap 2012-01-08 17:00:00 No Ramdaroxann Ballda Joseph 667 mg, 1 cap, Route: PO, Drug form: CAP, TID-Meals, with meals, Start date: 01/08/12 12:00:00, Duration: 30 day, Stop date: 02/07/12 8:00:00 [facility] Lasix 2012-01-08 02:00:00 No Ramdas Nell Joseph 40 mg, 4 mL, Route: IVP, Drug form: INJ, Q12H, Start date: 01/07/12 21:00:00, Duration: 30 day, Stop date: 02/06/12 9:00:00 [facility] Dextrose 50% Syringe 2012-01-07 17:05:00 No Enoch Balld dai Joseph 12.5 gm, 25 mL, Route: IVP, Drug Form: INJ, PRN, PRN Blood Glucose Results, Start date: 01/07/12 12:05:00, Duration: 30 day, Stop date: 02/06/12 12:04:00 [facility] glucagon 2012-01-07 17:05:00 No Ramdas Nell Joseph 1 mg, Route: IM, Drug form: PDR/INJ, PRN, PRN Blood Glucose Results, Start date: 01/07/12 12:05:00, Duration: 30 day, Stop date: 02/06/12 12:04:00 [facility] insulin aspart 2012-01-07 17:05:00 No Ramdas Nell Kuma r 10 unit, 0.1 mL, Route: SUB-Q, Drug form: SOLN, Sliding Scale, PRN Blood Glucose Results, BG > = 350 mg/dl;, Start date: 01/07/12 12:05:00, Stop date: 02/06/12 12:04:00 [facility] Lasix 2012-01-07 16:36:00 No Ramdas Nell Joseph 40 mg, 4 mL, Route: IV, Drug form: INJ, ONCE, Priority: STAT, Start date: 01/07/12 11:36:00, Stop date: 01/07/12 11:36:00 [facility] magnesium sulfate 2012-01-05 23:26:00 No Ramdas Nell K umar 2 gm, 50 mL, Route: IVPB, Drug form: INJ, ONCE, Total dose = 2 gm, Start date: 01/05/12 18:26:00, Duration: 1 doses or times, Stop date: 01/05/12 18:26:00 [facility] Protonix 2012-01-05 16:56:00 No Joseluis Van Lisa 40 mg, 1 tab, Route: PO, Drug form: ECTAB, Before Dinner, Start date: 01/05/12 11:56:00, Duration: 30 day, Stop date: 02/03/12 16:30:00 Shahzad akbret [place] calcium chloride 2012-01-05 13:26:00 No Ramdas Nell Ku mar 2,000 mg, 20 mL, Route: IV, Drug form: INJ, ONCE, Start date: 01/05/12 8:26:00, Stop date: 01/05/12 8:26:00 [facility] carvedilol 2012-01-05 02:00:00 No Enoch Joseph 6.25 mg, 2 tab, Route: PO, Drug form: TAB, Q12H, Start date: 01/04/12 21:00:00, Duration: 30 day, Stop date: 02/03/12 9:00:00 [facility] lactulose 10 g/15 mL oral syrup 2012-01-04 21:24:00 No Joseluis Van Lisa 20 gm, 30 mL, Route: PO, Drug Form: SYRP , Daily, PRN Constipation, Start date: 01/04/12 16:24:00, Duration: 30 day, Stop date: 02/03/12 16:23:00 [facility] Lyrica 2012-01-04 18:00:00 No Joseluis Van Lisa 150 mg, 2 cap, Route: PO, Drug form: CAP, TID, Start date: 01/04/12 13:00:00, Duration: 30 day, Stop date: 02/03/12 9:00:00 [facility] Kayexalate 2012-01-04 17:20:00 No Joseluis Van Lisa 15 gm, 60 mL, Route: PO, Drug form: SUSP, ONCE, Start date: 01/04/12 12:20:00, Stop date: 01/04/12 12:20:00 [facility] calcium gluconate 2012-01-04 01:26:00 No Nihal Essa Abd shun 2,000 mg, 20 mL, Route: IV, ONCE, Start date: 01/03/12 20:26:00, Stop date: 01/03/12 20:26:00 [facility] Kayexalate 2012-01-04 01:26:00 No Nihal Essa Abdulla 20 gm, 80 mL, Route: PO, Drug form: SUSP, ONCE, Start date: 01/03/12 20:26:00, Stop date: 01/03/12 20:26:00 [facility] Sodium Chloride 0.9% IV 1,000 mL 2012-01-04 01:25:00 No Enoch Joseph 1,000 mL, Rate: 100 ml/hr, Infuse over: 10 hr, Route: IV, Dosing Weight 100.227 kg, Total Volume: 1,000, Start date: 01/03/12 20:25:00, Duration: 30 day, Stop date: 02/02/12 20:24:00 Francisco Joel acetaminophen-hydrocodone 325 mg-10 mg oral tablet 2011-12 18:40:00 No Mitch Alexeidai Villelaa 1 tab, Route: PO, Drug Form: TAB, ONCE, Start date: 01/02/12 12:40:00, Stop date: 01/02/12 12:40:00 [facility] Fluvirin 2012-01-02 15:00:00 No SYSTEM SYSTEM 0.5 mL, Route: IM, Drug Form: SUSP, Start date: 01/02/12 9:00:00, Stop date: 01/02/12 9:00:00 [facility] calcium gluconate 2012-01-01 17:00:00 No Ramdaroxann Ballda K umar 2,000 mg, 20 mL, Route: IV, ONCE, Start date: 01/01/12 11:00:00, Stop date: 01/01/12 11:00:00 [facility] methadone 2012-01-01 15:00:00 No Basem Hamid 2.5 mg, 2.5 mL, Route: PO, Drug form: SOLN, BID, Start date: 01/01/12 9:00:00, Duration: 30 day, Stop date: 01/30/12 17:00:00 [facility] losartan 2012-01-01 15:00:00 No Ramdas Nell Joseph 100 mg, 2 tab, Route: PO, Drug form: TAB, Daily, Start date: 01/01/12 9:00:00, Duration: 30 day, Stop date: 01/30/12 9:00:00 Bren power [facility] Levemir 2012-01-01 15:00:00 No Taso Mougouris 20 unit, 0.2 mL, Route: SUB-Q, Drug form: INJ, Daily, Start date: 01/01/12 9:00:00, Duration: 30 day, Stop date: 01/30/12 9:00:00 [facility] furosemide 40 mg oral tablet 2012-01-01 15:00:00 No Ramdas Nell Joseph 40 mg, 1 tab, Route: PO, Drug form: TAB, Daily, Start date: 01/01/12 9:00:00, Duration: 30 day, Stop date: 01/30/12 9:00:00 [facility] diltiazem 2012-01-01 15:00:00 No Taso Mougouris 240 mg, 1 cap, Route: PO, Drug form: ERCAP, Daily, Start date: 01/01/12 9:00:00, Duration: 30 day, Stop date: 01/30/12 9:00:00 [facility] Sodium Chloride 0.45% IV 1,000 mL 2012-01-01 03:09:00 No Gaxiola Amanda Cardenas 1,000 mL, Rate: 75 ml/hr, In fuse over: 13.3 hr, Route: IV, Total Volume: 1,000, Start date: 12/31/11 21:09:00, Duration: 30 day, Stop date: 01/30/12 21:08:00 [facility] Levemir 2012-01-01 03:00:00 No Rica Quiros 40 unit, 0.4 mL, Route: SUB-Q, Drug form: INJ, Bedtime, Start date: 12/31/11 21:00:00, Duration: 30 day, Stop date: 01/29/12 21:00:[facility] 2012-[facility]-01 03:00:00 No Joseluis Van Lisa 150 mg, 2 cap, Route: PO, Drug form: CAP, BID, Start date: 12/31/11 21:00:00, Duration: 30 day, Stop date: 01/30/12 17:00:00 [facility] metFORmin 1000 mg oral tablet, extended release 2011-12-31 23:00:00 No Joseluis Van Lisa 1,000 mg, 2 tab, Route: PO, Drug form: ERTAB, BID, Start date: 12/31/11 17:00:00, Duration: 30 day, Stop date: 01/30/12 9:00:00 [facility] pravastatin 2011-12-31 23:00:00 No Taso Mougouris 80 mg, 4 tab, Route: PO, Drug form: TAB, Daily, Start date: 12/31/11 17:00:00, Duration: 30 day, Stop date: 01/29/12 17:00:00 [facility]abella gemfibrozil 2011-12-31 23:00:00 No Taso Mougouris 600 mg, 1 tab, Route: PO, Drug form: TAB, BID, Start date: 12/31/11 17:00:00, Duration: 30 day, Stop date: 01/30/12 9:00:00 [facility] clonidine 0.2 mg oral tablet 2011-12-31 23:00:00 No Tas o Mougouris 0.2 mg, 1 tab, Route: PO, Drug form: TAB, BID, Start date: 12/31/11 17:00:00, Duration: 30 day, Stop date: 01/30/12 9:00:00 [facility] Neurontin 2011-12-31 22:00:00 No Basem Hamid 300 mg, 1 cap, Route: PO, Drug form: CAP, Q8H, Start date: 12/31/11 16:00:00, Duration: 30 day, Stop date: 01/30/12 8:00:00 [facility] hydrALAZINE 25 mg oral tablet 2011-12-31 19:15:00 No Ramdas Nell Joseph 25 mg, 1 tab, Route: PO, Drug form: TAB, Q6H, PRN Elevated BP, Start date: 12/31/11 13:15:00, Duration: 30 day, Stop date: 01/30/12 13:14:00, systolic blood pressure greater than 180 mm Hg. [facility] enoxaparin 2011-12-31 18:00:00 No Joseluis Van Lisa 40 mg, 0.4 mL, Route: SUB-Q, Drug form: INJ, [id number], Start date: 12/31/11 12:00:00, Duration: 30 day, Stop date: 01/30/12 0:00:00 [facility]rom[facility] 2011-12-31 17:55:00 No Gaxiola Amanda Cardenas 1 mg, 1 mL, Route: IVP, Drug form: SOLN, Q3H, PRN Pain, Start date: 12/31/11 11:55:00, Stop date: 01/30/12 11:54:00 [facility] hydromorphone 2011-12-31 17:53:00 No Taso Mougouris 2 mg, 2 mL, Route: IVP, Drug form: SOLN, Q3H, PRN Pain, Start date: 12/31/11 11:53:00, Duration: 30 day, Stop date: 01/30/12 11:52:[address] [facility] insulin aspart 2011-12-31 17:30:00 No Ramdaroxann Ballda Kuma r 2 unit, 0.02 mL, Route: SUB-Q, Drug form: SOLN, TID-Before Meals, PRN Blood Glucose Results, Start date: 12/31/11 11:30:00, Duration: 30 day, Stop date: 01/30/12 11:29:00 [facility] Dextrose 50% Syringe 2011-12-31 17:30:00 No Taso Mougou ris 12.5 gm, 25 mL, Route: IVP, Drug Form: INJ, PRN, PRN Blood Glucose Results, Start date: 12/31/11 11:30:00, Duration: 30 day, Stop date: 01/30/12 12:29:00 [facility] glucagon 2011-12-31 17:30:00 No Taso Mougouris 1 mg, Route: IM, Drug form: PDR/INJ, PRN, PRN Blood Glucose Results, Start date: 12/31/11 11:30:00, Duration: 30 day, Stop date: 01/30/12 12:29:00 [facility] Phenergan 2011-12-31 17:29:00 No Taso Mougouris 12.5 mg, 0.5 mL, Route: IVPB, Q4H, PRN Nausea & Vomiting, Start date: 12/31/11 11:29:00, Duration: 30 day, Stop date: 01/30/12 11:28:00 [facility] Saline Flush 0.9% 2011-12-31 17:21:00 No Taso Mougouris 5 ml, Route: IVP, Drug Form: INJ, PRN, PRN Line Flush, Start date: 12/31/11 11:21:00, Duration: 30 day, Stop date: 01/30/12 12:20:00 [facility] docusate 2011-12-31 17:21:00 No Taso Mougouris 100 mg, 1 cap, Route: PO, Drug form: CAP, BID, PRN Constipation, Start date: 12/31/11 11:21:00, Duration: 30 day, Stop date: 01/30/12 11:20:00 [facility] acetaminophen 2011-12-31 17:21:00 No Taso Mougouris 650 mg, 2 tab, Route: PO, Drug form: TAB, Q4H, PRN Pain/Fever, Start date: 12/31/11 11:21:00, Duration: 30 day, Stop date: 01/30/12 11:20:00 [facility] temazepam 2011-12-31 17:21:00 No Taso Mougouris 15 mg, 1 cap, Route: PO, Drug form: CAP, Bedtime, PRN Insomnia, Start date: 12/31/11 11:21:00, Duration: 30 day, Stop date: 01/30/12 11:20:00 [facility] ondansetron 2011-12-31 17:21:00 No Taso Mougouris 4 mg, 2 mL, Route: IVP, Drug form: INJ, Q6H, PRN Nausea & Vomiting, Start date: 12/31/11 11:21:00, Duration: 30 day, Stop date: 01/30/12 11:20:00 [facility] Levemir 100 units/mL subcutaneous solution 2011-12-31 17:1 3:12 Yes Taso Mougouris 40 units, SUB-Q, Bedtime, Substitution A nilda [facility] influenza virus vaccine, inactivated 2011-12-31 15:00:00 No SYSTEM SYSTEM 0.5 mL, Route: IM, Drug Form : SUSP, Start date: 12/31/11 9:00:00, Stop date: 12/31/11 9:00:00 [facility] Kayexalate 2011-12-31 15:00:00 No Enoch Joseph 15 gm, 60 mL, Route: PO, Drug form: SUSP, QID, Start date: 12/31/11 9:00:00, Duration: 30 day, Stop date: 01/29/12 21:00:00 [facility] Dilaudid 2011-12-31 13:55:00 No Taso Mougouris 0.5 mg, 0.5 mL, Route: IV, Drug form: SOLN, Q3H, PRN Pain, 0.5-1mg every 3 hours prn for pain, Start date: 12/31/11 7:55:00, Duration: 30 day, Stop date: 01/30/12 7:54:00 [facility] gabapentin 300 mg oral capsule 2011-12-31 10:05:34 Yes 300 mg, 1 cap, PO, BID, Substitution Allowed [facility] morphine Sulfate 2011-12-31 09:54:00 No Marco Gutierrez Bansa l 4 mg, Route: IV, ONCE, Start date: 12/31/11 3:54:00, Stop date: 12/31/11 3:54:00 [facility] atropine 2011-12-31 09:50:00 No Jonathan Presybeterian Jaspreet 0.5 mg, 5 mL, Route: IVP, Drug form: INJ, PRN, PRN Bradycardia, Start date: 12/31/11 3:50:00, Duration: 30 day, Stop date: 01/30/12 4:49:00 [facility] nitroglycerin 0.4 mg sublingual tablet 2011-12-31 09:50:00 No Jonathan Presybeterian Jaspreet 0.4 mg, 1 tab, R oute: SL, Drug form: TAB, Q5Min, PRN Chest Pain, Start date: 12/31/11 3:50:00, Duration: 30 day, Stop date: 01/30/12 4:49:00 [facility] Sodium Chloride 0.9% IV 1,000 mL 2011-12-31 09:45:00 No Jonathan Presybeterian Jaspreet 1,000 mL, Rate: 125 ml/hr, Infuse over: 8 hr, Route: IV, Total Volume: 1,000, Start date: 12/31/11 3:45:00, Duration: 30 day, Stop date: 01/30/12 3:44:00 [facility] Saline Flush 0.9% 2011-12-31 09:45:00 No Taso Mougouris 5 ml, Route: IVP, Drug Form: INJ, PRN, PRN Line Flush, Start date: 12/31/11 3:45:00, Duration: 30 day, Stop date: 01/30/12 4:44:00 [facility] ondansetron 2011-12-31 09:45:00 No Jonathan mckeon 4 mg, 2 mL, Route: IVP, Drug form: INJ, Q6H, PRN Nausea & Vomiting, Start date: 12/31/11 3:45:00, Duration: 30 day, Stop date: 01/30/12 3:44:00 [facility] morphine Sulfate 2011-12-31 09:45:00 No Octavio Mauro 4 mg, 2 mL, Route: IVP, Drug form: INJ, Q4H, PRN Pain Score 7-10, Start date: 12/31/11 3:45:00, Duration: 30 day, Stop date: 01/30/12 3:44:00 [facility] Zofran 2011-12-31 08:33:00 No Marco Gutierrez Stepan 4 mg, Route: IVP, Drug form: INJ, ONCE, Start date: 12/31/11 2:33:00, Stop date: 12/31/11 2:33:00 [facility] NovoLog 100 units/mL subcutaneous solution 2011-12-31 08:14:57 Yes SUB-Q, Substitution Allowed Brennon chadwick Levemir 100 units/mL subcutaneous solution 2011-12-31 08:1 4:40 Yes Taso Mougouris 20 units, SUB-Q, Daily, Substitution All owed [facility] gabapentin 300 mg oral capsule 2011-12-31 08:14:04 Yes 300 mg, 1 cap, PO, BID, Substitution Allowed Memor omer Camarena metFORmin 1000 mg oral tablet, extended release 2011-12-31 08:13:09 Yes Taso Mougouris 1,000 mg, 1 tab, PO, BID, 60 tab, Substitution Allowed, ERTAB [facility] furosemide 40 mg oral tablet 2011-12-31 08:12:43 Yes Tas o Mougouris 40 mg, 1 tab, PO, Daily, 30 tab, Substitution Allowed, TAB [facility] pravastatin 80 mg oral tablet 2011-12-31 08:11:31 Yes Ta so Mougouris 80 mg, 1 tab, PO, Daily, 30 tab, Substitution Allowed, TAB [facility] losartan 100 mg oral tablet 2011-12-31 08:11:13 No Taso Mougouris 100 mg, 1 tab, PO, Daily, 30 tab, Substitution Allowed, TAB [facility] gemfibrozil 600 mg oral tablet 2011-12-31 08:10:30 Yes T aso Mougouris 600 mg, 1 tab, PO, BID, 60 tab, Substitution Allowed, TAB [facility] diltiazem 240 mg/24 hours oral tablet, extended release 2011-12-31 08:10:13 Yes Taso Mougouris 240 mg, 1 tab , PO, Daily, 30 tab, Substitution Allowed, ERTAB [facility] clonidine 0.2 mg oral tablet 2011-12-31 08:09:49 Yes Tas o Mougouris 0.2 mg, PO, BID, 60 tab, Substitution Allowed [facility] morphine Sulfate 2011-12-31 05:48:00 No Marco Gutierrez Bansa l 4 mg, Route: IVP, ONCE, Start date: 12/30/11 23:48:00, Stop date: 12/30/11 23:48:00 [facility] sodium bicarbonate 8.4% 2011-12-31 04:48:00 No Marco La l Stepan 50 mEq, 50 mL, Route: IVP, Drug Form: INJ, ONCE, STAT, Start date: 12/30/11 22:48:00, Stop date: 12/30/11 22:48:00 [facility] Insulin regular 2011-12-31 04:47:00 No Marco Gutierrez Stepan 10 unit, 0.1 mL, Route: IVP, Drug form: INJ, ONCE, Priority: STAT, Start date: 12/30/11 22:47:00, Stop date: 12/30/11 22:47:00 [facility] d50 syringe 2011-12-31 04:46:00 No Marco Gutierrez Stepan Route: IVP, Drug Form: INJ, ONCE, Start date: 12/30/11 22:46:00, Stop date: 12/30/11 22:46:00 [facility] Kayexalate 2011-12-31 04:45:00 No Marco Gutierrez Stepan 30 gm, 120 mL, Route: PO, Drug form: SUSP, ONCE, Start date: 12/30/11 22:45:00, Stop date: 12/30/11 22:45:00 [facility] morphine Sulfate 2011-12-31 02:44:00 No Marco Gutierrez Bansa l 4 mg, Route: IVP, ONCE, Priority: STAT, Start date: 12/30/11 20:44:00, Stop date: 12/30/11 20:44:00 [facility] Zofran 2011-12-31 02:44:00 No Marco Gutierrez Stepan 4 mg, Route: IVP, Drug form: INJ, ONCE, Priority: STAT, Start date: 12/30/11 20:44:00, Stop date: 12/30/11 20:44:00 [facility] Amlodipine Besylate/Benazepril (Amlodipine-Benazepril 2.5-10) 1 Each Capsule Amlodipine Besylate/Benazepril (Amlodipine-Benazepril 2.5-10) 1 Each Capsule Yes Daily [facility] Calcium Acetate 667 Mg Tablet Calcium Acetate 667 Mg Tablet Yes 667 Three Times A Day [facility] Carvedilol 3.125 Mg Tablet Carvedilol 3.125 Mg Tablet Yes 3.125 Twice A Day [facility] Clopidogrel Bisulfate (Plavix) 75 Mg Tablet Clopidogre l Bisulfate (Plavix) 75 Mg Tablet Yes 75 Daily [facility] Divalproex Sodium (Depakote Er) 500 Mg [id number] Diva lproex Sodium (Depakote Er) 500 Mg [id number] Yes 1000 Twice A Day [facility] Duloxetine Hcl (Cymbalta) 30 Mg Capsule. Duloxetine Hcl (Cymbalta) 30 Mg Capsule.dr Garcia 30 Twice A Day [facility] Esomeprazole Magnesium (Nexium) 40 Mg Capsule. Esome prazole Magnesium (Nexium) 40 Mg Capsule.dr Garcia 20 Daily I [facility] Ezetimibe (Zetia) 10 Mg Tablet Ezetimibe (Zetia) 10 Mg Tablet Yes 10 Daily [facility] Gemfibrozil 600 Mg Tablet Gemfibrozil 600 Mg Tablet Yes 300 Daily [facility] Insulin Aspart (Novolog) 100 Units/1 Ml Inj Insulin As part (Novolog) 100 Units/1 Ml Inj Yes 26 Before Meals And At Bedtime [facility] Insulin Detemir (Levemir) 100 Unit/1 Ml Vial Insulin D etemir (Levemir) 100 Unit/1 Ml Vial Yes 16 Daily [facility] Insulin Detemir (Levemir) 100 Unit/1 Ml Vial Insulin D etemir (Levemir) 100 Unit/1 Ml Vial Yes 60 Bedtime [facility] Lisinopril 10 Mg Tablet Lisinopril 10 Mg Tablet Yes 10 Daily [facility] Midodrine Hcl 2.5 Mg Tablet Midodrine Hcl 2.5 Mg Tablet Yes 5 -- [facility] Nortriptyline Hcl 10 Mg Cap Nortriptyline Hcl 10 Mg Cap Yes 20 Bedtime [facility] Omeprazole 40 Mg Capsule. Omeprazole 40 Mg Capsule. Yes 20 Daily [facility] Pregabalin (Lyrica) 75 Mg Cap Pregabalin (Lyrica) 75 Mg Cap Yes 150 Three Times A Day [facility] Ropinirole Hcl 0.25 Mg Tablet Ropinirole Hcl 0.25 Mg Tablet Yes .25 Three Times A Day [facility] Sevelamer Carbonate (Renvela) 0.8 Gm Powd.pack Sevelam er Carbonate (Renvela) 0.8 Gm Powd.pack Yes 2400 Three Times A Day [facility] Simvastatin 20 Mg Tablet Simvastatin 20 Mg Tablet Yes 10 Today At 9:00PM [facility] Sumatriptan Succinate 100 Mg Tablet Sumatriptan Succinate 100 Mg Tabl et Yes 100 As Needed [facility] Acetaminophen With Codeine (Tylenol With Codeine #3 Tablet) 1 Each Tablet, 300 Mg Oral Acetaminophen With Codeine (Tylenol With Codeine #3 Tablet) 1 Each Tablet, 300 Mg Oral 2018-02-15 00:00:00 No 300 Every 4 Hours as needed for Pain [facility] Calcium Citrate (Calcitrate) 200 Mg Tablet, 2000 Mg Or al Calcium Citrate (Calcitrate) 200 Mg Tablet, 2000 Mg Oral 2018-02-15 00:00:00 No 2000 Three Times A Day [facility] Cyclobenzaprine Hcl 10 Mg Tablet, 5 Mg Oral Cyclobenza nadine Hcl 10 Mg Tablet, 5 Mg Oral 2018-02-15 00:00:00 No 5 Three Times A Da y [facility] Duloxetine Hcl (Cymbalta) 20 Mg Capcr, 30 Mg Oral Dulo xetine Hcl (Cymbalta) 20 Mg Capcr, 30 Mg Oral 2018-02-15 00:00:00 No 30 Twi ce A Day [facility] Labetalol Hcl 100 Mg Tablet, 200 Mg Oral Labetalol Hcl 100 Mg Tablet, 200 Mg Oral 2018-02-15 00:00:00 No 200 Twice A Day [facility] Tramadol Hcl (Ultram) 50 Mg Tablet, 50 Mg Oral Tramado l Hcl (Ultram) 50 Mg Tablet, 50 Mg Oral 2018-02-15 00:00:00 No 50 Every 4 Hours as needed for Pain [facility] Famotidine (Pepcid) 20 Mg Tablet, 40 Mg Oral Famotidin e (Pepcid) 20 Mg Tablet, 40 Mg Oral 2017-12-22 00:00:00 No 40 Daily [facility] Folic Acid/Cyanocob/Pyridoxine (Nephro-Melodie Tablet) 1 Ea Tab, 1 Each Oral Folic Acid/Cyanocob/Pyridoxine (Nephro-Melodie Tablet) 1 Ea Tab, 1 Each Oral 2017-12-22 00:00:00 No 1 Daily [facility] Gabapentin 300 Mg Capsule, 300 Mg Oral Gabapentin 300 Mg Capsule , 300 Mg Oral 2017-12-22 00:00:00 No 300 Twice A Day [facility] Insuln Asp Prt/Insulin Aspart (Novolog M ix 70-30 Flexpen Syrn) 100 Unit/1 Ml Insuln.pen, 26 UnitSubcutaneously Insuln Asp Prt/Insulin Aspart (Novolog M ix 70- 30 Flexpen Syrn) 100 Unit/1 Ml Insuln.pen, 26 UnitSubcutaneously 2017-12-22 00:00:00 No 26 Three Times A Day [facility] Lisinopril 10 Mg Tablet, 10 Mg Oral Lisinopril 10 Mg Tablet, 10 Mg Oral 2017-12-22 00:00:00 No 10 Daily [facility] Midodrine Hcl 2.5 Mg Tablet, 10 Mg Oral Midodrine Hcl 2.5 Mg Tablet, 10 Mg Oral 2017-12-22 00:00:00 No 10 Daily [facility] Pregabalin (Lyrica) 75 Mg Cap, 75 Mg Oral Pregabalin ( Lyrica) 75 Mg Cap, 75 Mg Oral 2017-12-22 00:00:00 No 75 Daily [facility] Promethazine Hcl 25 Mg Tablet, 0.5 Mg Oral Promethazin e Hcl 25 Mg Tablet, 0.5 Mg Oral 2017-12-22 00:00:00 No .5 Every 4 Hours as n eeded for Nausea [facility] Saccharomyces Boulardii (Florastor) 250 Mg Capsule, 25 0 Mg Oral Saccharomyces Boulardii (Florastor) 250 Mg Capsule, 250 Mg Oral 2017-12-22 00:00:00 No 250 Twice A Day [facility] Sodium Bicarbonate 650 Mg Tablet, 325 Mg Oral Sodium B icarbonate 650 Mg Tablet, 325 Mg Oral 2017-12-22 00:00:00 No 325 Three Times A Day [facility] Sumatriptan Succinate 25 Mg Tablet, 25 Mg Oral Sumatri ptan Succinate 25 Mg Tablet, 25 Mg Oral 2017-12-22 00:00:00 No 25 Daily [facility] Calcium Acetate (Phoslo) 667 Mg Cap, 3 Tab Oral Calciu m Acetate (Phoslo) 667 Mg Cap, 3 Tab Oral 2017-06-21 00:00:00 No 3 Daily At 1700 [facility] Carvedilol 3.125 Mg Tablet, 3.125 Mg Oral Carvedilol 3 .125 Mg Tablet, 3.125 Mg Oral 2017-06-21 00:00:00 No 3.125 Twice A Day [facility] Cholecalciferol (Vitamin D3) (Vitamin D-3) 2,000 Unit Capsule, 2000 U Oral Cholecalciferol (Vitamin D3) (Vitamin D-3) 2,000 Unit Capsule, 2000 U Oral 2017-06-21 00:00:00 No 2000 Daily [facility] Clopidogrel Bisulfate (Clopidogrel) 75 Mg Tablet, 75 M g Oral Clopidogrel Bisulfate (Clopidogrel) 75 Mg Tablet, 75 Mg Oral 2017-06-21 00:00:00 No 75 Daily [facility] Cyclobenzaprine Hcl 10 Mg Tablet, 5 Mg Oral Cyclobenza nadine Hcl 10 Mg Tablet, 5 Mg Oral 2017-06-21 00:00:00 No 5 Ever y 8 Hours as needed for Muscle Spasms [facility] Dicyclomine Hcl 10 Mg Capsule, 5 Mg Oral Dicyclomine H cl 10 Mg Capsule, 5 Mg Oral 2017-06-21 00:00:00 No 5 Ever y 8 Hours as needed for Abdominal Pain [facility] Divalproex Sodium (Divalproex Sodium Er) 500 Mg Tab.er .24h, 500 Mg Oral Divalproex Sodium (Divalproex Sodium Er) 500 Mg Tab.er.24h, 500 Mg Oral 2017-06-21 00:00:00 No 500 Bedtime [facility] Duloxetine Hcl (Cymbalta) 20 Mg Capcr, 20 Mg Oral Dulo xetine Hcl (Cymbalta) 20 Mg Capcr, 20 Mg Oral 2017-06-21 00:00:00 No 20 Bed time [facility] Folic Acid/Cyanocob/Pyridoxine (Nephro-Melodie Tablet) 1 Ea Tab, 1 Each Oral Folic Acid/Cyanocob/Pyridoxine (Nephro-Melodie Tablet) 1 Ea Tab, 1 Each Oral 2017-06-21 00:00:00 No 1 Daily [facility] Folic Acid/Cyanocob/Pyridoxine (Nephro-Melodie Tablet) 1 Ea Tab, 1 Each Oral Folic Acid/Cyanocob/Pyridoxine (Nephro-Melodie Tablet) 1 Ea Tab, 1 Each Oral 2017-06-21 00:00:00 No 1 Daily [facility] Gabapentin 300 Mg Capsule, 300 Mg Oral Gabapentin 300 Mg Capsule , 300 Mg Oral 2017-06-21 00:00:00 No 300 Twice A Day [facility] [facility] Insulin Detemir (Levemir) 100 Unit/1 Ml Vial, 10 Units Subcutaneously Insulin Detemir (Levemir) 100 Unit/1 Ml Vial, 10 Units Subcutaneously 2017-06-21 00:00:00 No 10 Am [facility] Insulin Human Isophan/Regular (Novolin 7 0-30 100 Unit/Ml Vial) 100 Units/Ml Ml, 26 Units Sub-Q Insulin Human Isophan/Regular (Novolin 7 0-30 100 Unit/Ml Vial) 100 Units/Ml Ml, 26 Units Sub-Q 2017-06-21 00:00:00 No 26 Three Times Daily With Meals [facility] Lisinopril 10 Mg Tablet, 20 Mg Oral Lisinopril 10 Mg Tablet, 20 Mg Oral 2017-06-21 00:00:00 No 20 Daily [facility] Midodrine Hcl 2.5 Mg Tablet, 10 Mg Oral Midodrine Hcl 2.5 Mg Tablet, 10 Mg Oral 2017-06-21 00:00:00 No 10 During Dialysis [facility] Promethazine Hcl 12.5 Mg Tablet, 12.5 Mg Oral Prometha zine Hcl 12.5 Mg Tablet, 12.5 Mg Oral 2017-06-21 00:00:00 No 12.5 Every 8 Hours as needed for Nausea [facility] Ropinirole Hcl 12 Mg Tab.er.24h, 25 Mg Oral Ropinirole Hcl 12 Mg Tab.er.24h, 25 Mg Oral 2017-06-21 00:00:00 No 25 Three Times A Da y [facility] Sevelamer Hcl (Renvela) 800 Mg Tab, 800 Mg Oral Sevela karine Hcl (Renvela) 800 Mg Tab, 800 Mg Oral 2017-06-21 00:00:00 No 800 Three Times Daily With Meals [facility] Simvastatin 10 Mg Tablet, 10 Mg Oral Simvastatin 10 Mg Tablet, 1 0 Mg Oral 2017-06-21 00:00:00 No 10 Today At 9:00PM [facility] Sumatriptan Succinate 25 Mg Tablet, 25 Mg Oral Sumatri ptan Succinate 25 Mg Tablet, 25 Mg Oral 2017-06-21 00:00:00 No 25 As Needed as needed for Migraine [facility] Tramadol Hcl/Acetaminophen (Ultracet Tablet) 1 Each Ta blet, 50 Mg Oral Tramadol Hcl/Acetaminophen (Ultracet Tablet) 1 Each Tablet, 50 Mg Oral 2017-06-21 00:00:00 No 50 Every 4 Hours as needed for Benjamin n [facility] Fludrocortisone Acetate 0.1 Mg Tab, 0.05 Mg Oral Fludr ocortisone Acetate 0.1 Mg Tab, 0.05 Mg Oral 2016-04-14 00:00:00 No .05 Hd [facility] Insulin Human Lispro (Humalog) 100 Units/Ml Ml, 60 Uni ts Subcutaneously Insulin Human Lispro (Humalog) 100 Units/Ml Ml, 60 Units Subcutaneously 2016-04-14 00:00:00 No 60 Bedtime [facility] Insulin Human Lispro (Humalog) 100 Units/Ml Ml, 60 Uni ts Subcutaneously Insulin Human Lispro (Humalog) 100 Units/Ml Ml, 60 Units Subcutaneously 2016-04-14 00:00:00 No 60 Daily At 1700 C [facility] Lidocaine (Lidoderm) 700 Mg Adh..patch, 5 % Topically Lidocaine (Lidoderm) 700 Mg Adh..patch, 5 % Topically 2016-04-14 00:00:00 No 5 Every 12 Hours as needed for Pain [facility] Midodrine Hcl 2.5 Mg Tablet, 5 Mg Oral Midodrine Hcl 2.5 Mg Tabl et, 5 Mg Oral 2016-04-14 00:00:00 No 5 Twice A Day as neede d for After Hd [facility] Ondansetron Hcl (Ondansetron Odt) 4 Mg/Udtablet Tabdp, 4 Mg Oral Ondansetron Hcl (Ondansetron Odt) 4 Mg/Udtablet Tabdp, 4 Mg Oral 2016-04-14 00:00:00 No 4 Every 6 Hours as needed for Nausea [facility] Pregabalin (Lyrica) 75 Mg Cap, 75 Mg Oral Pregabalin ( Lyrica) 75 Mg Cap, 75 Mg Oral 2016-04-14 00:00:00 No 75 Twice A Day [facility] Scopolamine Hydrobromide (Transderm-Scop) 1 Each Patch .td72, 1.5 Mg Transderm Scopolamine Hydrobromide (Transderm-Scop) 1 Each Patch.td72, 1.5 Mg Transderm 2016-04-14 00:00:00 No 1.5 Q 3 Days [facility] Amoxicillin/Potassium Clav (Augmentin 50 0-125 Tablet) 1 Each Tablet, 500 Mg Oral Amoxicillin/Potassium Clav (Augmentin 50 0-125 Tablet) 1 Each Tablet, 500 Mg Oral 2015-08-15 00:00:00 No 500 Twice A Day [facility] Clopidogrel Bisulfate (Plavix) 75 Mg Tablet, 75 Mg Ora l Clopidogrel Bisulfate (Plavix) 75 Mg Tablet, 75 Mg Oral 2015-08-15 00:00:00 No 75 Daily [facility] Pantoprazole Sodium (Protonix) 40 Mg Tablet.dr, 40 Mg Oral Pantoprazole Sodium (Protonix) 40 Mg Tablet.dr, 40 Mg Oral 2015-08-15 00:00:00 No 40 Daily [facility] Immunizations Ordered Immunization Name Filled Immunization Name Date Status Comments Source FLUCELVAX QUAD PF 2018-12-16 00:00:00 Completed [place] [facility] Sign[facility] Vital Name Observation Time Observation Value Comments Source Systolic (mm Hg) 2016-06-10 20:46:00 [facility] Diastolic (mm Hg) 2016-06-10 20:46:00 [facility] Heart Rate 2016-06-10 20:46:00 [facility] Respitory Rate 2016-06-10 20:46:00 [facility] Temperature Oral (F) 2016-06-10 20:46:00 98.4 F [facility] Systolic (mm Hg) 2016-06-10 13:00:00 [facility] Diastolic (mm Hg) 2016-06-10 13:00:00 [facility] Temperature Oral (F) 2016-06-10 13:00:00 98.3 F [facility] Respitory Rate 2016-06-10 13:00:00 [facility] Heart Rate 2016-06-10 13:00:00 [facility] Systolic (mm Hg) 2016-06-10 09:00:00 [facility] Diastolic (mm Hg) 2016-06-10 09:00:00 [facility] Heart Rate 2016-06-10 09:00:00 [facility] Respitory Rate 2016-06-10 09:00:00 [facility] Temperature Oral (F) 2016-06-10 09:00:00 97.8 F [facility] Height 2016-06-06 16:41:00 146.05 cm [facility] Weight 2016-06-06 16:41:00 [facility] BMI Calculated 2016-06-06 16:41:00 [facility] Height 2016-06-05 18:38:00 144.78 cm [facility] BMI Calculated 2016-06-05 18:38:00 [facility] Weight 2016-06-05 18:38:00 [facility] BMI Calculated 2016-06-05 11:19:00 [facility] Height 2016-06-05 11:19:00 144.78 cm [facility] Weight 2016-06-05 11:19:00 [facility] Systolic (mm Hg) 2015-04-22 23:47:00 [facility] Diastolic (mm Hg) 2015-04-22 23:47:00 [facility] Respitory Rate 2015-04-22 23:47:00 [facility] Heart Rate 2015-04-22 23:47:00 [facility] Temperature Oral (F) 2015-04-22 23:47:00 98.7 F [facility] Respitory Rate 2015-04-22 13:00:00 [facility] Temperature Oral (F) 2015-04-22 13:00:00 97.7 F [facility] Systolic (mm Hg) 2015-04-22 13:00:00 [facility] Diastolic (mm Hg) 2015-04-22 13:00:00 [facility] Heart Rate 2015-04-22 13:00:00 [facility] Systolic (mm Hg) 2015-04-22 08:55:00 [facility] Diastolic (mm Hg) 2015-04-22 08:55:00 [facility] Respitory Rate 2015-04-22 08:55:00 [facility] Temperature Oral (F) 2015-04-22 08:55:00 97.6 F [facility] Heart Rate 2015-04-22 08:55:00 [facility] BMI Calculated 2015-04-16 14:59:00 [facility] Height 2015-04-16 14:59:00 144.78 cm [facility] Weight 2015-04-16 14:59:00 [facility] Height 2015-04-16 01:40:00 144.78 cm [facility] BMI Calculated 2015-04-16 01:40:00 [facility] Weight 2015-04-16 01:40:00 [facility] Weight 2015-04-15 17:06:00 [facility] BMI Calculated 2015-04-15 17:06:00 [facility] Height 2015-04-15 17:06:00 144.78 cm [facility] Respitory Rate 2015-01-11 17:49:00 [facility] Temperature Oral (F) 2015-01-11 17:49:00 98.0 F [facility] Heart Rate 2015-01-11 17:49:00 [facility] Systolic (mm Hg) 2015-01-11 17:49:00 [facility] Diastolic (mm Hg) 2015-01-11 17:49:00 [facility] Systolic (mm Hg) 2015-01-11 16:42:00 [facility] Diastolic (mm Hg) 2015-01-11 16:42:00 [facility] Heart Rate 2015-01-11 16:42:00 [facility] Respitory Rate 2015-01-11 16:42:00 [facility] Systolic (mm Hg) 2015-01-11 14:35:00 [facility] Diastolic (mm Hg) 2015-01-11 14:35:00 [facility] Heart Rate 2015-01-11 14:35:00 [facility] Respitory Rate 2015-01-11 14:35:00 [facility] Height 2015-01-11 11:54:00 144.78 cm [facility] Weight 2015-01-11 11:54:00 [facility] BMI Calculated 2015-01-11 11:54:00 [facility] Temperature Oral (F) 2015-01-11 11:54:00 97.8 F [facility] Heart Rate 2014-11-27 20:03:00 [facility] Diastolic (mm Hg) 2014-11-27 20:03:00 [facility] Systolic (mm Hg) 2014-11-27 20:03:00 [facility] Weight 2014-11-27 20:03:00 [facility] Height 2014-11-27 20:03:00 144.78 cm [facility] BMI Calculated 2014-11-27 20:03:00 [facility] Temperature Oral (F) 2014-11-27 20:03:00 97.1 F [facility] Heart Rate 2014-11-06 14:07:00 [facility] Respitory Rate 2014-11-06 14:07:00 [facility] Diastolic (mm Hg) 2014-11-06 14:07:00 [facility] Systolic (mm Hg) 2014-11-06 14:07:00 [facility] Height 2014-11-06 14:07:00 151 cm [facility] BMI Calculated 2014-11-06 14:07:00 [facility] Weight 2014-11-06 14:07:00 [facility] Respitory Rate 2014-09-19 16:47:00 [facility] Heart Rate 2014-09-19 16:47:00 [facility] Temperature Oral (F) 2014-09-19 16:47:00 98.3 F [facility] Diastolic (mm Hg) 2014-09-19 16:47:00 [facility] Systolic (mm Hg) 2014-09-19 16:47:00 [facility] Heart Rate 2014-09-19 16:12:00 [facility] Diastolic (mm Hg) 2014-09-19 16:12:00 [facility] Respitory Rate 2014-09-19 16:12:00 [facility] Systolic (mm Hg) 2014-09-19 16:12:00 [facility] Weight 2014-09-19 12:57:00 [facility] BMI Calculated 2014-09-19 12:57:00 [facility] Height 2014-09-19 12:57:00 144.78 cm [facility] Respitory Rate 2014-09-19 12:57:00 [facility] Temperature Oral (F) 2014-09-19 12:57:00 98.5 F [facility] Heart Rate 2014-09-19 12:57:00 [facility] Diastolic (mm Hg) 2014-09-19 12:57:00 [facility] Systolic (mm Hg) 2014-09-19 12:57:00 [facility] Heart Rate 2014-09-03 14:57:00 [facility] Respitory Rate 2014-09-03 14:57:00 [facility] Systolic (mm Hg) 2014-09-03 14:57:00 [facility] Diastolic (mm Hg) 2014-09-03 14:57:00 [facility] Systolic (mm Hg) 2014-09-03 13:45:00 [facility] Diastolic (mm Hg) 2014-09-03 13:45:00 [facility] Respitory Rate 2014-09-03 13:45:00 [facility] Heart Rate 2014-09-03 13:45:00 [facility] Heart Rate 2014-09-03 12:46:00 [facility] Systolic (mm Hg) 2014-09-03 12:46:00 [facility] Respitory Rate 2014-09-03 12:46:00 [facility] Diastolic (mm Hg) 2014-09-03 12:46:00 [facility] Height 2014-09-03 12:32:00 144.78 cm [facility] Weight 2014-09-03 12:32:00 [facility] BMI Calculated 2014-09-03 12:32:00 [facility] Temperature Oral (F) 2014-09-03 12:32:00 98.6 F [facility] Diastolic (mm Hg) 2014-08-02 21:00:00 [facility] Respitory Rate 2014-08-02 21:00:00 [facility] Systolic (mm Hg) 2014-08-02 21:00:00 [facility] Temperature Oral (F) 2014-08-02 21:00:00 98.7 F [facility] Heart Rate 2014-08-02 21:00:00 [facility] Respitory Rate 2014-08-02 17:00:00 [facility] Heart Rate 2014-08-02 17:00:00 [facility] Temperature Oral (F) 2014-08-02 17:00:00 98.9 F [facility] Diastolic (mm Hg) 2014-08-02 17:00:00 [facility] Systolic (mm Hg) 2014-08-02 17:00:00 [facility] Diastolic (mm Hg) 2014-08-02 13:00:00 [facility] Heart Rate 2014-08-02 13:00:00 [facility] Respitory Rate 2014-08-02 13:00:00 [facility] Systolic (mm Hg) 2014-08-02 13:00:00 [facility] Temperature Oral (F) 2014-08-02 13:00:00 98.3 F [facility] Weight 2014-08-02 02:29:00 [facility] BMI Calculated 2014-08-02 02:29:00 [facility] Height 2014-08-02 02:29:00 144.78 cm [facility] BMI Calculated 2014-08-01 11:27:00 [facility] Height 2014-08-01 11:27:00 154.94 cm [facility] Weight 2014-08-01 11:27:00 [facility] Respitory Rate 2013-11-29 14:23:00 [facility] Systolic (mm Hg) 2013-11-29 14:23:00 [facility] Diastolic (mm Hg) 2013-11-29 14:23:00 [facility] Heart Rate 2013-11-29 14:23:00 [facility] Temperature Oral (F) 2013-11-29 14:23:00 98.1 F [facility] Diastolic (mm Hg) 2013-11-29 10:00:00 [facility] Temperature Oral (F) 2013-11-29 10:00:00 97.5 F [facility] Heart Rate 2013-11-29 10:00:00 [facility] Respitory Rate 2013-11-29 10:00:00 [facility] Systolic (mm Hg) 2013-11-29 10:00:00 [facility] Systolic (mm Hg) 2013-11-29 05:50:00 [facility] Diastolic (mm Hg) 2013-11-29 05:50:00 [facility] Heart Rate 2013-11-29 05:50:00 [facility] Respitory Rate 2013-11-29 05:50:00 [facility] Temperature Oral (F) 2013-11-29 05:50:00 97.8 F [facility] Weight 2013-11-10 15:43:00 [facility] Height 2013-11-10 15:43:00 144.78 cm [facility] Height 2013-11-10 12:59:00 144.78 cm [facility] Weight 2013-11-10 04:54:00 [facility] Height 2013-11-10 04:54:00 144.78 cm [facility] Respitory Rate 2013-08-10 13:28:00 [facility] Diastolic (mm Hg) 2013-08-10 13:00:00 [facility] Heart Rate 2013-08-10 13:00:00 [facility] Respitory Rate 2013-08-10 13:00:00 [facility] Systolic (mm Hg) 2013-08-10 13:00:00 [facility] Temperature Oral (F) 2013-08-10 13:00:00 99.3 F [facility] Heart Rate 2013-08-10 09:34:00 [facility] Temperature Oral (F) 2013-08-10 09:34:00 97.7 F [facility] Systolic (mm Hg) 2013-08-10 09:34:00 [facility] Diastolic (mm Hg) 2013-08-10 09:34:00 [facility] Respitory Rate 2013-08-10 09:34:00 [facility] Diastolic (mm Hg) 2013-08-10 05:19:00 [facility] Temperature Oral (F) 2013-08-10 05:19:00 98.6 F [facility] Heart Rate 2013-08-10 05:19:00 [facility] Systolic (mm Hg) 2013-08-10 05:19:00 [facility] Weight 2013-08-09 11:08:00 [facility] Weight 2013-08-07 09:50:00 [facility] Weight 2013-08-05 22:39:00 [facility] Height 2013-08-05 22:39:00 162.56 cm [facility] Height 2013-08-05 12:02:00 162.56 cm [facility] Weight 2013-08-03 20:02:00 [facility] Systolic (mm Hg) 2013-08-03 20:02:00 [facility] Diastolic (mm Hg) 2013-08-03 20:02:00 [facility] Respitory Rate 2013-08-03 20:02:00 [facility] Heart Rate 2013-08-03 20:02:00 [facility] Temperature Oral (F) 2013-08-03 20:02:00 97.9 F [facility] Heart Rate 2013-07-30 17:00:00 [facility] Respitory Rate 2013-07-30 17:00:00 [facility] Systolic (mm Hg) 2013-07-30 17:00:00 [facility] Diastolic (mm Hg) 2013-07-30 17:00:00 [facility] Temperature Oral (F) 2013-07-30 17:00:00 98.2 F [facility] Heart Rate 2013-07-30 13:00:00 [facility] Temperature Oral (F) 2013-07-30 13:00:00 98.5 F [facility] Respitory Rate 2013-07-30 13:00:00 [facility] Systolic (mm Hg) 2013-07-30 13:00:00 [facility] Diastolic (mm Hg) 2013-07-30 13:00:00 [facility] Systolic (mm Hg) 2013-07-30 09:24:00 [facility] Respitory Rate 2013-07-30 09:24:00 [facility] Heart Rate 2013-07-30 09:24:00 [facility] Temperature Oral (F) 2013-07-30 09:24:00 98.0 F [facility] Diastolic (mm Hg) 2013-07-30 09:24:00 [facility] Weight 2013-07-24 17:06:00 [facility] Height 2013-07-24 17:06:00 149.86 cm [facility] Weight 2013-07-24 11:47:00 [facility] Systolic (mm Hg) 2013-07-03 12:00:00 [facility] Respitory Rate 2013-07-03 12:00:00 [facility] Diastolic (mm Hg) 2013-07-03 12:00:00 [facility] Heart Rate 2013-07-03 12:00:00 [facility] Temperature Oral (F) 2013-07-03 12:00:00 98 F [facility] Systolic (mm Hg) 2013-07-03 09:11:00 [facility] Diastolic (mm Hg) 2013-07-03 09:11:00 [facility] Respitory Rate 2013-07-03 09:11:00 [facility] Heart Rate 2013-07-03 09:11:00 [facility] Temperature Oral (F) 2013-07-03 09:11:00 97.9 F [facility] Systolic (mm Hg) 2013-07-03 04:52:00 [facility] Respitory Rate 2013-07-03 04:52:00 [facility] Diastolic (mm Hg) 2013-07-03 04:52:00 [facility] Heart Rate 2013-07-03 04:52:00 [facility] Temperature Oral (F) 2013-07-03 04:52:00 97.4 F [facility] Weight 2013-06-22 12:08:00 [facility] Height 2013-06-22 12:08:00 147.32 cm [facility] Height 2013-06-14 16:48:00 147.32 cm [facility] Weight 2013-06-14 16:48:00 [facility] Height 2013-01-12 16:13:00 144.78 cm [facility] Weight 2013-01-12 16:13:00 [facility] Weight 2013-01-06 18:10:00 [facility] Height 2013-01-06 18:10:00 144.78 cm [facility] Heart Rate 2012-12-28 22:53:00 [facility] Temperature Oral (F) 2012-12-28 22:53:00 98.3 F [facility] Diastolic (mm Hg) 2012-12-28 22:53:00 [facility] Systolic (mm Hg) 2012-12-28 22:53:00 [facility] Respitory Rate 2012-12-28 22:53:00 [facility] Systolic (mm Hg) 2012-12-28 18:45:00 [facility] Respitory Rate 2012-12-28 18:45:00 [facility] Temperature Oral (F) 2012-12-28 18:45:00 97.8 F [facility] Diastolic (mm Hg) 2012-12-28 18:45:00 [facility] Respitory Rate 2012-12-28 16:48:00 [facility] Diastolic (mm Hg) 2012-12-28 14:15:00 [facility] Systolic (mm Hg) 2012-12-28 14:15:00 [facility] Temperature Oral (F) 2012-12-28 14:15:00 97.7 F [facility] Heart Rate 2012-12-28 14:15:00 [facility] Heart Rate 2012-12-28 10:00:00 [facility] Weight 2012-12-27 10:04:00 [facility] Weight 2012-12-27 07:08:00 [facility] Height 2012-12-27 06:03:00 146.05 cm [facility] Weight 2012-12-26 05:30:00 [facility] Height 2012-12-26 05:30:00 144.78 cm [facility] Weight 2012-12-05 13:29:00 [facility] Height 2012-12-05 13:29:00 144.78 cm [facility] Temperature Oral (F) 2012-12-03 10:00:00 98.1 F [facility] Heart Rate 2012-12-03 10:00:00 [facility] Respitory Rate 2012-12-03 10:00:00 [facility] Systolic (mm Hg) 2012-12-03 10:00:00 [facility] Diastolic (mm Hg) 2012-12-03 10:00:00 [facility] Systolic (mm Hg) 2012-12-03 06:00:00 [facility] Diastolic (mm Hg) 2012-12-03 06:00:00 [facility] Respitory Rate 2012-12-03 06:00:00 [facility] Temperature Oral (F) 2012-12-03 06:00:00 98.1 F [facility] Heart Rate 2012-12-03 06:00:00 [facility] Heart Rate 2012-12-03 02:00:00 [facility] Temperature Oral (F) 2012-12-03 02:00:00 98.5 F [facility] Respitory Rate 2012-12-03 02:00:00 [facility] Systolic (mm Hg) 2012-12-03 02:00:00 [facility] Diastolic (mm Hg) 2012-12-03 02:00:00 [facility] Height 2012-11-30 02:26:00 144.78 cm [facility] Weight 2012-11-30 02:26:00 [facility] Height 2012-11-30 02:06:00 144.78 cm [facility] Weight 2012-11-30 02:06:00 [facility] Weight 2012-11-29 16:47:00 [facility] Height 2012-11-29 16:47:00 149.86 cm [facility] Heart Rate 2012-09-11 02:00:00 [facility] Temperature Oral (F) 2012-09-11 02:00:00 97.6 F [facility] Systolic (mm Hg) 2012-09-11 02:00:00 [facility] Respitory Rate 2012-09-11 02:00:00 [facility] Diastolic (mm Hg) 2012-09-11 02:00:00 [facility] Temperature Oral (F) 2012-09-10 23:30:00 97.9 F [facility] Heart Rate 2012-09-10 23:30:00 [facility] Systolic (mm Hg) 2012-09-10 23:30:00 [facility] Respitory Rate 2012-09-10 23:30:00 [facility] Diastolic (mm Hg) 2012-09-10 23:30:00 [facility] Systolic (mm Hg) 2012-09-10 14:00:00 [facility] Respitory Rate 2012-09-10 14:00:00 [facility] Diastolic (mm Hg) 2012-09-10 14:00:00 [facility] Temperature Oral (F) 2012-09-10 14:00:00 97.8 F [facility] Heart Rate 2012-09-10 14:00:00 [facility] Weight 2012-09-05 19:09:00 [facility] Height 2012-09-05 19:09:00 157.48 cm [facility] Heart Rate 2012-07-11 17:00:00 [facility] Temperature Oral (F) 2012-07-11 17:00:00 98.1 F [facility] Diastolic (mm Hg) 2012-07-11 17:00:00 [facility] Systolic (mm Hg) 2012-07-11 17:00:00 [facility] Respitory Rate 2012-07-11 17:00:00 [facility] Systolic (mm Hg) 2012-07-11 13:00:00 [facility] Diastolic (mm Hg) 2012-07-11 13:00:00 [facility] Respitory Rate 2012-07-11 13:00:00 [facility] Heart Rate 2012-07-11 13:00:00 [facility] Temperature Oral (F) 2012-07-11 13:00:00 98.4 F [facility] Temperature Oral (F) 2012-07-11 09:00:00 97.6 F [facility] Diastolic (mm Hg) 2012-07-11 09:00:00 [facility] Systolic (mm Hg) 2012-07-11 09:00:00 [facility] Respitory Rate 2012-07-11 09:00:00 [facility] Heart Rate 2012-07-11 09:00:00 [facility] Weight 2012-07-01 01:17:00 [facility] Height 2012-07-01 01:17:00 154.94 cm [facility] Heart Rate 2012-02-16 21:00:00 [facility] Temperature Oral (F) 2012-02-16 21:00:00 97.6 F [facility] Respitory Rate 2012-02-16 21:00:00 [facility] Systolic (mm Hg) 2012-02-16 21:00:00 [facility] Diastolic (mm Hg) 2012-02-16 21:00:00 [facility] Systolic (mm Hg) 2012-02-16 17:00:00 [facility] Respitory Rate 2012-02-16 17:00:00 [facility] Diastolic (mm Hg) 2012-02-16 17:00:00 [facility] Temperature Oral (F) 2012-02-16 17:00:00 97.9 F [facility] Heart Rate 2012-02-16 17:00:00 [facility] Respitory Rate 2012-02-16 13:00:00 [facility] Diastolic (mm Hg) 2012-02-16 13:00:00 [facility] Heart Rate 2012-02-16 13:00:00 [facility] Temperature Oral (F) 2012-02-16 13:00:00 98.3 F [facility] Systolic (mm Hg) 2012-02-16 13:00:00 [facility] Height 2012-02-01 05:57:00 144.78 cm [facility] Height 2012-01-31 23:35:00 162.56 cm [facility] Weight 2012-01-31 23:35:00 [facility] Diastolic (mm Hg) 2012-01-29 22:43:00 [facility] Systolic (mm Hg) 2012-01-29 22:43:00 [facility] Respitory Rate 2012-01-29 22:43:00 [facility] Heart Rate 2012-01-29 22:43:00 [facility] Temperature Oral (F) 2012-01-29 22:43:00 98.4 F [facility] Systolic (mm Hg) 2012-01-29 17:07:00 [facility] Respitory Rate 2012-01-29 17:07:00 [facility] Diastolic (mm Hg) 2012-01-29 17:07:00 [facility] Heart Rate 2012-01-29 17:07:00 [facility] Temperature Oral (F) 2012-01-29 17:07:00 98.0 F [facility] Systolic (mm Hg) 2012-01-29 13:34:00 [facility] Respitory Rate 2012-01-29 13:34:00 [facility] Heart Rate 2012-01-29 13:34:00 [facility] Temperature Oral (F) 2012-01-29 13:34:00 98.1 F [facility] Diastolic (mm Hg) 2012-01-29 13:34:00 [facility] Height 2011-12-31 10:13:00 152.40 cm [facility] Weight 2011-12-31 10:13:00 [facility] Weight 2011-12-31 01:29:00 [facility] Height 2011-12-31 01:29:00 152.40 cm [facility] Procedures Procedure Date / Time Performed Performing Clinician Brad myriam Computed tomography of brain without radiopaque contrast 201 05-29-27 00:00:00 CIARA MARINO [facility] REPAIR ACHILLES TENDON 2018-02-17 00:00:00 ADRIENNE VALLES [facility] Roxann [facility] REPAIR RIGHT LOWER LEG TENDON, OPEN APPROACH 2018-02-17 00:0 0:00 ADRIENNE VALLES [facility] X-ray of chest, two views 2018-02-04 00:00:00 JASPREET JEREZ [facility] MRI jnt of lwr extre w/o dye 2018-02-01 00:00:00 REENA ANGELY [facility] Computed tomography of brain without radiopaque contrast 201 05-27-23 00:00[facility] Computed tomography of cervical spine without contrast 01-14 00:00:00 PHILADELPHIALEONIE [facility] PERFORMANCE OF URINARY FILTRATION, <6 HRS/DAY 2017-12-24 00:00:0 0 [facility] PERFORMANCE OF URINARY FILTRATION, <6 HRS/DAY 2017-12-23 00:00:0 0 [facility] TRANSFUSE NONAUT RED BLOOD CELLS IN PERIPH VEIN, PERC 12-22 00:00:00 JASPER LUGO [facility] PERFORMANCE OF URINARY FILTRATION, <6 HRS/DAY 2017-12-22 00:00:0 0 [facility] Unsched dialysis ESRD pt hos 2016 00:00:00 FARAZ BUSTILLO [facility] X-ray of chest, two views 2017-06-21 00:00:00 FITO BUSTILLO [facility] Hemodialysis 2013-08-07 05:00:00 [facility] Esophagogastroduodenoscopy [egd] with Closed Biopsy 2013-07-28 0 5:00:00 [facility] Esophagogastroduodenoscopy [egd] with Closed Biopsy 2013-07-28 0 5:00:00 [facility] Hemod[facility] 2013-07-24 05:00:00 [facility] [place] Laparoscopic sleeve gastrectomy 2013-06-22 05:00:00 [facility] Laparoscopic sleeve gastrectomy 2013-06-22 05:00:00 [facility] Cholecystectomy 1991-10-25 06:00:00 [facility] Cholecystectomy 1991-10-25 06:00:00 [facility] [place] Exploration of abdomen<sup>1</sup> 1991-10-25 00:00:00 [facility] Expl[facility] of abdomen <sup>1</sup> 1991-10-25 00:00:00 [facility] Appendectomy [facility] Gastric bypass [facility] Hemodialysis [facility] Insertion of tunneled dialysis catheter using fluorosc opic guidance<sup>2</sup> [facility] Appendectomy [facility] Plan of Care Planned Activity Planned Date Details Comments Source Future Scheduled Test 2020-07-25 00:00:00 INFLUENZA VACCINE [code = INFLUENZA VACCINE] [facility] Scheduled Test 2012 00:00:00 BREAST CANCER SCRE ENING [code = BREAST CANCER SCREENING] [facility] Scheduled Test 2012 00:00:00 COLONOSCOPY SCREEN ING [code = COLONOSCOPY SCREENING] [facility] Scheduled Test 2012 00:00:00 SHINGLES VACCINES (#1) [code = SHINGLES VACCINES (#1)] [facility] Scheduled Test 1983 00:00:00 Screening for farideh gnant neoplasm of cervix (procedure) [code = 984377549] [facility] Encounters Start Date/Time End Date/Time Encounter Type Admission Type [facility] Care Department Encounter ID Source 2018-03-19 09:48:00 2018-03-21 20:35:00 Discharged Inpatient 1 CIARA MARINO [facility] [id number] [facility] 2018-02-17 06:51:00 2018-02-17 06:51:00 Registered Surgical Day Care [facility] [id number] [facility] 2018-02-04 12:38:00 2018-02-04 12:38:00 Registered Clinic JASPREET DENISE [facility] [id number] [facility] 2018-02-01 15:10:00 2018-02-01 15:10:00 Registered Clinic ADRIENNE CANTRELL [facility] [id number] [facility] 2018-01-14 22:08:00 2018-01-15 01:58:00 Departed Emergency Room ER LEONIE REILLY [facility] [id number] [facility] 2017-12-31 17:00:00 2017-12-31 17:00:00 [facility]istered [facility] [id number] [facility] 2017-12-22 17:03:00 2017-12-24 20:20:00 Discharged Inpatient ER CIARA MARINO [facility] [id number] [facility] 2017-11-27 07:26:00 2017-11-27 23:59:00 Outpatient WednesdayTiffanie [facility] [id number] 2017-11-19 16:48:00 2017-11-19 16:48:00 Registered Clinic SISI CABALLERO [facility] [id number] [facility] 2017-11-13 07:37:00 2017-11-13 23:59:00 Outpatient WednesdayTiffanie [facility] [id number] 2017-10-26 12:00:00 2017-10-26 12:00:00 Registered Clinic VICKY MA [facility] [id number] [facility] 2017-09-21 09:35:00 2017-09-21 09:35:00 Registered Clinic VICKY MA [facility] [id number] [facility] 2017-08-27 11:53:00 2017-08-27 11:53:00 Registered Clinic [facility] [id number] [facility] 2017-06-21 19:09:00 2017-06-22 07:59:00 Departed Emergency Room ER FARAZ BUSTILLO [facility] [id number] [facility] 2017-06-15 09:06:00 2017-06-15 09:06:00 Registered Clinic JASPREET DENISE [facility] [id number] [facility] 2017-04-06 10:31:00 2017-04-06 10:31:00 Registered Clinic [facility] [id number] [facility] 2016-06-05 06:12:00 2016-06-10 16:52:00 Outpatient Daphney Esquivel [facility] [id number] 2015-04-15 12:05:00 2015-04-22 16:50:00 Outpatient Minor Cardenas [facility] [id number] 2015-01-11 06:45:00 2015-01-11 12:53:00 Outpatient Kim Bobby [facility] [id number] 2014-11-06 07:51:00 2014-12-05 23:59:00 Outpatient Maya Buchanan [facility] [id number] 2014-11-27 13:13:00 2014-11-27 23:59:00 Outpatient Cristin Moreno [facility] [id number] 2014-09-19 06:51:00 2014-09-19 11:08:00 Outpatient Cory Lainez [facility] [id number] 2014-09-03 06:30:00 2014-09-03 09:58:00 Outpatient Patrick Singh [facility] [id number] 2014-08-01 06:19:00 2014-08-02 17:42:00 Outpatient Monica Diaz [facility] [id number] 2013-11-09 22:48:00 2013-11-29 18:25:00 Outpatient MHIE MHIE [id number] [facility] 2013-09-20 10:37:00 2013-09-20 11:00:00 Outpatient MHIE MHIE [id number] [facility] 2013-08-05 06:59:00 2013-08-10 13:45:00 Outpatient MHIE MHIE [id number] [facility] 2013-08-05 06:59:00 2013-08-10 13:45:00 Outpatient MHIE MHIE [id number] [facility] 2013-08-05 06:59:00 2013-08-10 13:45:00 Outpatient MHIE MHIE [id number] [facility] 2013-08-05 06:59:00 2013-08-10 13:45:00 Outpatient MHIE MHIE [id number] [facility] 2013-08-05 06:59:00 2013-08-10 13:45:00 Outpatient MHIE MHIE [id number] [facility] 2013-08-03 15:00:00 2013-08-03 18:36:00 Outpatient MHIE MHIE [id number] [facility] 2013-08-03 15:00:00 2013-08-03 18:36:00 Outpatient MHIE MHIE [id number] [facility] 2013-08-03 15:00:00 2013-08-03 18:36:00 Outpatient MHIE MHIE [id number] [facility] 2013-08-03 15:00:00 2013-08-03 18:36:00 Outpatient MHIE MHIE [id number] [facility] 2013-08-03 15:00:00 2013-08-03 18:36:00 Outpatient MHIE MHIE [id number] [facility] 2013-07-24 06:40:00 2013-07-30 12:30:00 Outpatient MHIE MHIE [id number] [facility] Results Test Description Test Time Test Comments Results Result Comments Source ANKLE 3 + VIEWS RIGHT 2020-06-20 09:50:00 [place] [address] Patient Name: TAI GRANT MR #: [id number] : 1960 Age/Sex: 60/F Req #: [id number] Adm Physician: Ordered by: KENDALL RUSSO DO Report #: [id number] Location: ER Room/Bed: Procedure: [id number] DX/ANKLE 3 + VIEWS RIGHT Exam Date: 06/20/20 Exam Time: 919 REPORT STATUS: Signed Exam: ANKLE 3 + VIEWS RIGHT History: Ankle pain Comparison: Right ankle radiographs 03/19/2018 Findings: No acute displaced fractures. Diffuse osseous demineralization. Redemonstrated irregularity along the posterior aspect of the calcaneus, may represent sequela of prior trauma or surgery. No joint malalignment or dislocation. Ankle mortise appears symmetric. Mild degenerative changes of the subtalar and midfoot joints. Mild diffuse soft tissue swelling with focal fullness in the region of the distal Achilles tendon. Impression: 1. Mild diffuse soft tissue swelling with focal fullness in the region of the distal Achilles tendon, may represent sequela of prior trauma/surgery however cannot exclude acute Achilles tendon injury in appropriate clinical setting. 2. No acute osseous abnormality. Signed by: Cesar Jean MD on 06/20/2020 9:59 AM Dictated By: CESAR JEAN MD 8 Transcribed By: ROBI on 06/20/20958 COPY TO: KENDALL RUSSO DO CHEMISTRY MISCELLANEOUS TEST 2020-03-07 14:05:00 Test Item CHEMISTRY TEST (test code = TESTC) Neo[facility] Analysis: MDS/CMML Profile CHEMISTRY TEST RESULT (test code = RESULTC) Results Summary / Diagnostic & Prognostic Implications - NEXT GENERATION SEQUENCING (NGS): No mutations aredetected in any of the genes on the NGS panel. -The lack of mutation in all of these genes does not ruleout the presence of a myeloid neoplasm. Correlation withmorphology, cytogenetics and/or FISH and other diagnostic information is recommended. Pertinent NegativesFLT3, IDH1, IDH2 See full list of genes tested in Test Description &Methodology Section at end of report. Profile Results Detail Biomarker/Assay Results ASXL1 Mutation Analysis Not Detected NF1 Mutation Analysis Not DetectedBCOR Mutation Analysis Not Detected NPM1 Mutation Not DetectedBCORL1 Mutation Analysis Not Detected NRAS Mutation Not DetectedBRAF Mutation Not Detected PDGFRa Mutation(s) Not DetectedCBL Mutation Analysis Not Detected PPM1D Mutation(s) Not DetectedCEBPA Mutation Not Detected PTEN Mutation Analysis Not DetectedCUX1 Mutation Analysis Not Detected PTPN11 Mutation Analysis Not EtxvrepdOIIZ9Y Mutation Not Detected RUNX1 Mutation Analysis Not DetectedETV6 Mutation Not Detected SETBP1 Mutation Not DetectedEZH2 Mutation Analysis Not Detected SF3B1 Mutation Not DetectedFLT3 Mutation Not Detected SRSF2 Mutation Analysis Not DetectedFLT3-ITD Mutation Not DetectedFLT3- TKD Mutation Not DetectedHRAS Mutation Not Detected STAG2 Mutation Analysis Not DetectedIDH1/IDH2 Mutation Not Detected TET2 Mutation Analysis Not DetectedIDH1 Mutation Not DetectedIDH2 Mutation Not DetectedJAK2 V617F Mutation Not Detected TP53 Mutation Not DetectedJAK2, EXON 12-14 Mutation Not Detected U2AF1 Mutation Analysis Not DetectedKIT (c-Kit) Mutation Not Detected ZRSR2 Mutation Analysis Not DetectedKRAS Mutation Not Detected Test DescriptionThe NeoTYPE MDS/CMML Profile uses a combination ofnext-generation sequencing (NGS) and other molecular methodsas listed below. Test orders include summary interpretation of all results to help guide treatment decisions. Clinical SignificanceThis molecular profile analyzes genes frequently mutated inmyelodysplastic syndrome (MDS) and the related MDS/MPNoverlap disease chronic myelomonocytic leukemia (CMML). Testing is useful to establish diagnosis and develop strategies for treatment and management, as mutations can signify poor or favorable prognosis and they inform of the underlying disease biology. Molecular profilingin MDS and CMML complements and should be interpreted withcytogenetic/FISH test findings. MethodologyNucleic acid is isolated from fresh cells (peripheral bloodcells or bone marrow). Testing is performed usingNext-Generation Sequencing (NGS) of the coding DNA of the listed genes. This includes sequencing of all the exons. An additional 10 nucleotides at the 5 and 3 ends of each coding exon are also sequenced to detectimportant splicing abnormalities. Fragment length analysisis also performed on FLT3 to enhance the detection of large insertion/deletion mutations. In general, the NGS method has a typical sensitivity of 3% for detecting common specific clinically actionable mutations and 5% for other mutations. The following exon is not includedin the p nura as it is not sufficiently covered with high quality sequence reads: ASXL1 exon 1 (AA 1-19). This exon has been reviewed and does not contain clinically significant mutations. The FLT3-ITD fragment analysis assay has an allelic ratio of 0.02 for FLT3-ITD. The FLT3 wildtype and the ITD peak size and peak height are evaluated and used for allelic ratio calculation[ITD/wildtype]. Various factors including quantity andquality of nucleic acid, sample preparation, and sample agecan affect assay performance. Biomarkers Evaluated (by molecular analysis unless otherwisenoted)ASXL1, BCOR, BCORL1, BRAF, CBL, CEBPA, CUX1, DNMT3A, ETV6,EZH2, FLT3, HRAS, IDH1, IDH2, JAK2 Exon 12-14, [id number], KIT, KRAS, NF1, NPM1, NRAS, PDGFRA, PPM1D, PTEN,PTPN11, RUNX1, SETBP1, SF3B1, SRSF2, STAG2, TET2, TP53,U2AF1, ZRSR2 Sandi Carlos M.D. [facility] [id number] 14:05:00* Test Item Value Reference Range Interpretation Comments FLUORESCENCE INSITU HYBRID (test code = FISH) FISH Analysis: MDS Extended Results: Normal Interpretation:inv(3)/t(3;3): Not DetectedDel(5q): Not DetectedMonosomy 5: Not DetectedDel(7q): Not DetectedMonosomy 7: Not DetectedTrisomy 8: Not DetectedDel(17p) TP53: Not DetectedTrisomy 19: Not DetectedTetrasomy 19: Not DetectedDel(20q): Not DetectedETV6 Rearrangement: Not QtbwnzokVFC7L(MLL) Rearrangement: Not Detected Fluorescence in situ hybridizati on (FISH) analysis wasperformed using a specific set of probes for myelodysplasticsyndrome. Counts for all probe signals were within the normalreference range. This finding represents a NORMAL result. Probe Set Detail:+19: nuc constantino(ACP5,BLVRB)x2[199]Chromosome 8: nuc constantino(CEN8x2)[200]Chromosome 20: nuc constantino(A78T892,20qter)X2[199]5q-/-5/+5 tricolor: nuc constantino(hTERT,EGR1,RPS14)x2[199]7q-/-7 tri: nuc constantino(CEN7,D 1J6675,Z4W6200)x2[200]p53 (17p13.1)/ NF1 (17q11): nuc constantino(TP53,NF1)x2[200]ETV6 (12p13): nuc constantino(ETV6x2)[198]KMT2A (MLL) (11q23)*: nuc constantino(HOO6Ct7)[200]RPN1/MECOM (3q): nuc constantino(RPN1,MECOM)x2[191] Comments:The results of this assay have been determined within thelimitations described and should not be used interchangeablywith resulting values from other methods or kits. These results are intended to be used as an adjunct to other concurrent testing in patient care management. Therefore,the presence or absence of a malignant disease cannot be determined based solely on these results. Clinicalcorrelation is advised. Nuclei Scored: 200 Electronic SignatureDaelin Townsend M.D., Pathologist CHROMOSOME SEA BONE [id number] 14:05:00* Test Item Value Reference Range Interpretation Comments CHROMOSOME SEA BONE MARROW (test code = CHROMBM) Oncology Chromosome Analysis Karyotype: 46,XX[20] Interpretation:NORMAL FEMALE KARYOTYPECytogenetic analysis shows a normal female karyotype in allcells analyzed. Recommendation:This result should be interpreted in conjunction withconcurrent FISH, immunophenotypic, molecular and clinicalfindings. Periodic monitoring by flow, cytogenetics, FISH and molecular studies is recommended. Comments:Standard cytogenetic analysis may not detect subtlesubmicroscopic rearrangements and may not include metaphasesfrom abnormal cell populations with low mitotic rates or present in low levels. Test Detail:Metaphases Counted: 20Metaphases Analyzed: 20Metaphases Karyotyped: 2Culture Type: 24EB, 48EBBanding Technique: GTGBanding Resolution: 400 Electronic SignatureMonanette Flores MD, MS, ABMGG, FACG Vi Lozada M.D., Ph.D., Pathologist - [facility]. LEUK/LYMPHOMA [id number] 14:05:00* Test Item Value Reference Range Interpretation Comments LEUK/LYMPHOMA PANEL (test code = LEULYM) Flow Cytometry Analysis Specimen Type: Bone MarrowBody Site: Left Iliac Diagnosis:No diagnostic immunophenotypic abnormalities detected. Comments:No immunophenotypic evidence of a lymphoproliferativedisorder, acute leukemia, increase in blasts, or plasma cellneoplasm is identified. Myeloproliferative neoplasms and myelodysplastic syndromesmay not show antigenic abnormalities on myeloid cells andcannot be ruled out by flow cytometry. Please correlatethe result with morphological findings, other pertinent laboratory data and clinical information. Flow Differential (%) and Population Analysis: Lymphocytes: 8.3% T-cells (75% of lymphoid cells) show a CD4/CD8 ratio of about 2.1 without overt phenotypic abnormality. NK-cells (16% of lymphoid cells) are unremarkable. Mature B-cells (6% of lymphoid cells) are polyclonal (kappa:lambda 1.2).Monocytes: 6.3% Monocytes show phenotypic evidence of maturation without dysmaturation.Granulocytes: 81.5% Granulocytes show phenotypic evidence of maturation without dysmaturation.CD45 Dim: 2.6% CD34+ events (1.1% of total cells) are not increased. Precursor B-cells (0.1% of total cells) are unremarkable.CD45 Ne.2% Erythroids and cell debris, unremarkable.Plasma Cells: 0.0% Plasma cells are absent.CD34+: 1.1% Markers Performed:cCD3, cCD22, cCD79a, CD2, CD3, CD4, CD5, CD7, CD8, CD10,CD11b, CD11c, CD13, CD14, CD15, CD16, CD19, CD20, CD23,CD33, CD34, CD38, CD41, CD45, CD56, CD64, CD71, CD117,CD123, CD138, FD427b, cMPO, FMC-7, HLA-DR, [place], Lambda, nTdT (37 Markers) Microscopic DescriptionA digital image of a cytospin slide was reviewed for QApurposes. Sandi Ho M.D., Hematopathologist [id number] 12:54:00* Test Item Value Reference Range Interpretation Comments GLUBED (test code = GLUBED) 94 MG/DL 70-110 N Performed by certified vibrating screed operator at [facility] [id number] 08:07:00* Test Item Value Reference Range Interpretation Comments GLUBED (test code = GLUBED) 144 MG/DL 70-110 H Performed by certified vibrating screed operator at [facility] [id number] 08:04:00* Test Item Value Reference Range Interpretation Comments GLUBED (test code = GLUBED) 87 MG/DL 70-110 N Performed by certified vibrating screed operator at [facility] [id number] 03:13:00* Test Item Value Reference Range Interpretation Comments GLUBED (test code = GLUBED) 80 MG/DL 70-110 N Performed by certified vibrating screed operator at [facility] [id number] 19:31:00* Test Item Value Reference Range Interpretation Comments GLUBED (test code = GLUBED) 75 MG/DL 70-110 N Performed by certified vibrating screed operator at [facility] [id number] 17:44:00* Test Item Value Reference Range Interpretation Comments GLUBED (test code = GLUBED) 110 MG/DL 70-110 N Performed by certified vibrating screed operator at [facility] [id number] 09:58:00* Test Item Value Reference Range Interpretation Comments GLUBED (test code = GLUBED) 131 MG/DL 70-110 H Performed by certified vibrating screed operator at [facility] [id number] 08:17:00* Test Item Value Reference Range Interpretation Comments GLUBED (test code = GLUBED) 127 MG/DL 70-110 H Performed by certified vibrating screed operator at [facility] CBC W/AUTO [id number] 08:13:00* Test Item Value Reference Range Interpretation Comments WHITE BLOOD CELL (test code = WBC) 3.88 x10 3/uL 4.5-11.0 L RED BLOOD CELL (test code = RBC) 3.13 x10 6/uL 3.54-5.02 L HEMOGLOBIN (test code = HGB) 10.3 g/dL 11.0-15.0 L HEMATOCRIT (test code = HCT) 33.6 % 33.0-45.0 MEAN CELL VOLUME (test code = MCV) 107.3 fL 81.0-99.0 H MEAN CELL HGB (test code = MCH) 32.9 pg 27.0-33.0 N MEAN CELL HGB CONCETRATION (test code = MCHC) 30.7 g/dL 33.0-37. 0 L RED CELL DISTRIBUTION WIDTH CV (test code = RDW) 18.0 % 11.5- 14.5 H RED CELL DISTRIBUTION WIDTH SD (test code = RDW-SD) 71.1 fL 37 .0-54.0 H PLATELET COUNT (test code = PLT) 213 x10 3/uL 150-400 N MEAN PLATELET VOLUME (test code = MPV) 9.4 fL 7.0-9.0 H NEUTROPHIL % (test code = NT%) 49.9 % 56.0-77.0 L IMMATURE GRANULOCYTE % (test code = IG%) 1.0 % 0.0-2.0 N LYMPHOCYTE % (test code = LY%) 19.8 % 14.0-32.0 N MONOCYTE % (test code = MO%) 18.8 % 4.8-9.0 H EOSINOPHIL % (test code = EO%) 9.5 % 0.3-3.7 H BASOPHIL % (test code = BA%) 1.0 % 0.0-2.0 N NUCLEATED RBC % (test code = NRBC%) 0.0 % 0-0 N NEUTROPHIL # (test code = NT#) 1.93 x10 3/uL 2.0-7.6 L IMMATURE GRANULOCYTE # (test code = IG#) 0.04 x10 3/uL 0.00-0.03 H LYMPHOCYTE # (test code = LY#) 0.77 x10 3/uL 1.0-3.8 L MONOCYTE # (test code = MO#) 0.73 x10 3/uL 0.1-0.8 N EOSINOPHIL # (test code = EO#) 0.37 x10 3/uL 0.0-0.2 H BASOPHIL # (test code = BA#) 0.04 x10 3/uL 0.0-0.2 N NUCLEATED RBC # (test code = NRBC#) 0.00 x10 3/uL 0.0-0.1 N MANUAL DIFF REQUIRED (test code = MDIFF) NO BASIC METABOLIC [id number] 08:09:00* Test Item Value Reference Range Interpretation Comments SODIUM (test code = NA) 138 mEq/L 134-147 N POTASSIUM (test code = K) 3.9 mEq/L 3.4-5.0 N CHLORIDE (test code = CL) 102 mEq/L 100-108 N CARBON DIOXIDE (test code = CO2) 25 mEq/L 21-33 N ANION GAP (test code = GAP) 15 0-20 N GLUCOSE (test code = GLU) 120 mg/dL 70-110 H BLOOD UREA NITROGEN (test code = BUN) 46 mg/dL 7-18 H GLOMERULAR FILTRATION RATE (test code = GFR) 5.6 90-95 L Units of measure = ml/min/1.73 m2 CREATININE (test code = CREAT) 7.5 mg/dL 0.6-1.3 H CALCIUM (test code = CA) 7.9 mg/dL 8.0-10.5 L [id number] 08:09:00* Test Item Value Reference Range Interpretation Comments PHOSPHOROUS (test code = PHOS) 6.1 MG/DL 2.5-4.9 H [id number] 08:09:00* Test Item Value Reference Range Interpretation Comments MAGNESIUM (test code = MAG) 2.90 mg/dL 1.8-2.4 H CBC W/AUTO [id number] 05:04:00* Test Item Value Reference Range Interpretation Comments WHITE BLOOD CELL (test code = WBC) 3.30 x10 3/uL 4.5-11.0 L RED BLOOD CELL (test code = RBC) 2.48 x10 6/uL 3.54-5.02 L HEMOGLOBIN (test code = HGB) 8.1 g/dL 11.0-15.0 L HEMATOCRIT (test code = HCT) 27.2 % 33.0-45.0 L MEAN CELL VOLUME (test code = MCV) 109.7 fL 81.0-99.0 H MEAN CELL HGB (test code = MCH) 32.7 pg 27.0-33.0 N MEAN CELL HGB CONCETRATION (test code = MCHC) 29.8 g/dL 33.0-37. 0 L RED CELL DISTRIBUTION WIDTH CV (test code = RDW) 18.1 % 11.5- 14.5 H RED CELL DISTRIBUTION WIDTH SD (test code = RDW-SD) 72.5 fL 37 .0-54.0 H PLATELET COUNT (test code = PLT) 174 x10 3/uL 150-400 N MEAN PLATELET VOLUME (test code = MPV) 9.4 fL 7.0-9.0 H NEUTROPHIL % (test code = NT%) 50.0 % 56.0-77.0 L IMMATURE GRANULOCYTE % (test code = IG%) 1.2 % 0.0-2.0 N LYMPHOCYTE % (test code = LY%) 23.6 % 14.0-32.0 N MONOCYTE % (test code = MO%) 17.3 % 4.8-9.0 H EOSINOPHIL % (test code = EO%) 7.3 % 0.3-3.7 H BASOPHIL % (test code = BA%) 0.6 % 0.0-2.0 N NUCLEATED RBC % (test code = NRBC%) 0.0 % 0-0 N NEUTROPHIL # (test code = NT#) 1.65 x10 3/uL 2.0-7.6 L IMMATURE GRANULOCYTE # (test code = IG#) 0.04 x10 3/uL 0.00-0.03 H LYMPHOCYTE # (test code = LY#) 0.78 x10 3/uL 1.0-3.8 L MONOCYTE # (test code = MO#) 0.57 x10 3/uL 0.1-0.8 N EOSINOPHIL # (test code = EO#) 0.24 x10 3/uL 0.0-0.2 H BASOPHIL # (test code = BA#) 0.02 x10 3/uL 0.0-0.2 N NUCLEATED RBC # (test code = NRBC#) 0.00 x10 3/uL 0.0-0.1 N MANUAL DIFF REQUIRED (test code = MDIFF) NO RBC [id number] 05:04:00* Test Item Value Reference Range Interpretation Comments POLYCHROMASIA (test code = POLC) SLIGHT POIKILOCYTOSIS (test code = POIK) 1+ ANISOCYTOSIS (test code = ANISO) 1+ MACROCYTOSIS (test code = MACR) 1+ TEAR DROP CELLS (test code = TEAR) FEW SCHISTOCYTES (test code = PAULY) FEW CBC W/AUTO [id number] 04:44:00* Test Item Value Reference Range Interpretation Comments WHITE BLOOD CELL (test code = WBC) 3.30 x10 3/uL 4.5-11.0 L RED BLOOD CELL (test code = RBC) 2.48 x10 6/uL 3.54-5.02 L HEMOGLOBIN (test code = HGB) 8.1 g/dL 11.0-15.0 L HEMATOCRIT (test code = HCT) 27.2 % 33.0-45.0 L MEAN CELL VOLUME (test code = MCV) 109.7 fL 81.0-99.0 H MEAN CELL HGB (test code = MCH) 32.7 pg 27.0-33.0 N MEAN CELL HGB CONCETRATION (test code = MCHC) 29.8 g/dL 33.0-37. 0 L RED CELL DISTRIBUTION WIDTH CV (test code = RDW) 18.1 % 11.5- 14.5 H RED CELL DISTRIBUTION WIDTH SD (test code = RDW-SD) 72.5 fL 37 .0-54.0 H PLATELET COUNT (test code = PLT) 174 x10 3/uL 150-400 N MEAN PLATELET VOLUME (test code = MPV) 9.4 fL 7.0-9.0 H NEUTROPHIL % (test code = NT%) 50.0 % 56.0-77.0 L IMMATURE GRANULOCYTE % (test code = IG%) 1.2 % 0.0-2.0 N LYMPHOCYTE % (test code = LY%) 23.6 % 14.0-32.0 N MONOCYTE % (test code = MO%) 17.3 % 4.8-9.0 H EOSINOPHIL % (test code = EO%) 7.3 % 0.3-3.7 H BASOPHIL % (test code = BA%) 0.6 % 0.0-2.0 N NUCLEATED RBC % (test code = NRBC%) 0.0 % 0-0 N NEUTROPHIL # (test code = NT#) 1.65 x10 3/uL 2.0-7.6 L IMMATURE GRANULOCYTE # (test code = IG#) 0.04 x10 3/uL 0.00-0.03 H LYMPHOCYTE # (test code = LY#) 0.78 x10 3/uL 1.0-3.8 L MONOCYTE # (test code = MO#) 0.57 x10 3/uL 0.1-0.8 N EOSINOPHIL # (test code = EO#) 0.24 x10 3/uL 0.0-0.2 H BASOPHIL # (test code = BA#) 0.02 x10 3/uL 0.0-0.2 N NUCLEATED RBC # (test code = NRBC#) 0.00 x10 3/uL 0.0-0.1 N MANUAL DIFF REQUIRED (test code = MDIFF) NO RBC [id number] 04:44:00* Test Item Value Reference Range Interpretation Comments ANISOCYTOSIS (test code = ANISO) CBC W/AUTO [id number] 04:44:00* Test Item Value Reference Range Interpretation Comments WHITE BLOOD CELL (test code = WBC) 3.30 x10 3/uL 4.5-11.0 L RED BLOOD CELL (test code = RBC) 2.48 x10 6/uL 3.54-5.02 L HEMOGLOBIN (test code = HGB) 8.1 g/dL 11.0-15.0 L HEMATOCRIT (test code = HCT) 27.2 % 33.0-45.0 L MEAN CELL VOLUME (test code = MCV) 109.7 fL 81.0-99.0 H MEAN CELL HGB (test code = MCH) 32.7 pg 27.0-33.0 N MEAN CELL HGB CONCETRATION (test code = MCHC) 29.8 g/dL 33.0-37. 0 L RED CELL DISTRIBUTION WIDTH CV (test code = RDW) 18.1 % 11.5- 14.5 H RED CELL DISTRIBUTION WIDTH SD (test code = RDW-SD) 72.5 fL 37 .0-54.0 H PLATELET COUNT (test code = PLT) 174 x10 3/uL 150-400 N MEAN PLATELET VOLUME (test code = MPV) 9.4 fL 7.0-9.0 H NEUTROPHIL % (test code = NT%) 50.0 % 56.0-77.0 L IMMATURE GRANULOCYTE % (test code = IG%) 1.2 % 0.0-2.0 N LYMPHOCYTE % (test code = LY%) 23.6 % 14.0-32.0 N MONOCYTE % (test code = MO%) 17.3 % 4.8-9.0 H EOSINOPHIL % (test code = EO%) 7.3 % 0.3-3.7 H BASOPHIL % (test code = BA%) 0.6 % 0.0-2.0 N NUCLEATED RBC % (test code = NRBC%) 0.0 % 0-0 N NEUTROPHIL # (test code = NT#) 1.65 x10 3/uL 2.0-7.6 L IMMATURE GRANULOCYTE # (test code = IG#) 0.04 x10 3/uL 0.00-0.03 H LYMPHOCYTE # (test code = LY#) 0.78 x10 3/uL 1.0-3.8 L MONOCYTE # (test code = MO#) 0.57 x10 3/uL 0.1-0.8 N EOSINOPHIL # (test code = EO#) 0.24 x10 3/uL 0.0-0.2 H BASOPHIL # (test code = BA#) 0.02 x10 3/uL 0.0-0.2 N NUCLEATED RBC # (test code = NRBC#) 0.00 x10 3/uL 0.0-0.1 N MANUAL DIFF REQUIRED (test code = MDIFF) NO RBC [id number] 04:44:00* Test Item Value Reference Range Interpretation Comments ANISOCYTOSIS (test code = ANISO) [id number] 17:25:00* Test Item Value Reference Range Interpretation Comments GLUBED (test code = GLUBED) 130 MG/DL 70-110 H Performed by certified vibrating screed operator at [facility] BASIC METABOLIC [id number] 12:46:00* Test Item Value Reference Range Interpretation Comments SODIUM (test code = NA) 138 mEq/L 134-147 N POTASSIUM (test code = K) 3.8 mEq/L 3.4-5.0 N CHLORIDE (test code = CL) 103 mEq/L 100-108 N CARBON DIOXIDE (test code = CO2) 24 mEq/L 21-33 N ANION GAP (test code = GAP) 15 0-20 N GLUCOSE (test code = GLU) 100 mg/dL 70-110 N BLOOD UREA NITROGEN (test code = BUN) 29 mg/dL 7-18 H GLOMERULAR FILTRATION RATE (test code = GFR) 7.0 90-95 L Units of measure = ml/min/1.73 m2 CREATININE (test code = CREAT) 6.2 mg/dL 0.6-1.3 H CALCIUM (test code = CA) 8.4 mg/dL 8.0-10.5 N [id number] 12:46:00* Test Item Value Reference Range Interpretation Comments MAGNESIUM (test code = MAG) 2.70 mg/dL 1.8-2.4 H CBC W/O [id number] 12:29:00* Test Item Value Reference Range Interpretation Comments WHITE BLOOD CELL (test code = WBC) 3.81 x10 3/uL 4.5-11.0 L RED BLOOD CELL (test code = RBC) 3.23 x10 6/uL 3.54-5.02 L HEMOGLOBIN (test code = HGB) 10.4 g/dL 11.0-15.0 L HEMATOCRIT (test code = HCT) 33.9 % 33.0-45.0 N MEAN CELL VOLUME (test code = MCV) 105.0 fL 81.0-99.0 H MEAN CELL HGB (test code = MCH) 32.2 pg 27.0-33.0 N MEAN CELL HGB CONCETRATION (test code = MCHC) 30.7 g/dL 33.0-37. 0 L RED CELL DISTRIBUTION WIDTH CV (test code = RDW) 18.0 % 11.5- 14.5 H RED CELL DISTRIBUTION WIDTH SD (test code = RDW-SD) 68.6 fL 37 .0-54.0 H PLATELET COUNT (test code = PLT) 185 x10 3/uL 150-400 N MEAN PLATELET VOLUME (test code = MPV) 9.5 fL 7.0-9.0 H [id number] 12:11:00* Test Item Value Reference Range Interpretation Comments GLUBED (test code = GLUBED) 100 MG/DL 70-110 N Performed by certified vibrating screed operator at [facility] - XR ABDOMEN 1V (KUB)2020-02-25 11:16:00 FAX: Gerda Garcia MD [phone] [place]: St: ADM FAX: Callum Choi MD [phone] FAX: Jaspreet Perea MD [phone] Name: TAI GRANT [facility] : 1960 Age/S: 59/F [address] [place] [address] Unit #: [id number] Loc: G.[address] [place] [address] Phys: Gerda Garcia MD Acct: [id number] Dis Date: Status: ADM IN PH ONE #: [phone] Exam Date: 02/25/2020 110 FAX #: [phone] Reason: c diff EXAMS: CPT CODE: [id number] XR ABDOMEN 1V (KUB) [id number] Procedure: Abd ominal Radiograph. Clinical Indication: C. Difficile, fever, fluli ke symptoms. Comparison: None. FINDINGS: A supine ra diograph of the abdomen demonstrates embolization coils projected overlyin g the right midabdomen. There are surgical clips in the right upper quadr ant likely post cholecystectomy. There is an anastomotic site in the left upper quadrant which may represent prior gastric sleeve. There is a nons pecific bowel gas pattern without definitive bowel obstruction or free int raperitoneal air. No pathologic calcifications. IMPRESSIO N: 1. Postoperative changes without bowel obstruction. SL: OCO-H Electronically Sig ronnie by Fauzia Cisneros on 02/25/2020 at 1116 Reported and signed by: Liza Palencia CC: Gerda Garcia MD; Callum Beltre MD; Jaspreet Jerez MD Te chnologist: Rocio Grey, RT(R); GLENN Bustos RT(R) Trnscrd Date/ Time/By: 02/25/2020 (1116) : By: Emma Orig Print D/T: S: 02/25/20 20 (3080) PAGE 1 Signed Report [id number] 08:09:00* Test Item Value Reference Range Interpretation Comments GLUBED (test code = GLUBED) 99 MG/DL 70-110 N Performed by certified vibrating screed operator at [facility] [id number] 19:54:00* Test Item Value Reference Range Interpretation Comments GLUBED (test code = GLUBED) 140 MG/DL 70-110 H Performed by certified vibrating screed operator at [facility] [id number] 16:51:00* Test Item Value Reference Range Interpretation Comments GLUBED (test code = GLUBED) 98 MG/DL 70-110 N Performed by certified vibrating screed operator at [facility] CHEMISTRY MISCELLANEOUS [id number] 14:43:00* Test Item Value Reference Range Interpretation Comments CHEMISTRY TEST (test code = TESTC) CHEMISTRY TEST RESULT (test code = RESULTC) FLUORESCENCE INSITU [id number] 14:43:00* Test Item Value Reference Range Interpretation Comments FLUORESCENCE INSITU HYBRID (test code = FISH) FISH Analysis: MDS Extended Results: Normal Interpretation:inv(3)/t(3;3): Not DetectedDel(5q): Not DetectedMonosomy 5: Not DetectedDel(7q): Not DetectedMonosomy 7: Not DetectedTrisomy 8: Not DetectedDel(17p) TP53: Not DetectedTrisomy 19: Not DetectedTetrasomy 19: Not DetectedDel(20q): Not DetectedETV6 Rearrangement: Not CsmogtnpPIR9M(MLL) Rearrangement: Not Detected Fluorescence in situ hybridizati on (FISH) analysis wasperformed using a specific set of probes for myelodysplasticsyndrome. Counts for all probe signals were within the normalreference range. This finding represents a NORMAL result. Probe Set Detail:+19: nuc constantino(ACP5,BLVRB)x2[199]Chromosome 8: nuc constantino(CEN8x2)[200]Chromosome 20: nuc constantino(F60F046,20qter)X2[199]5q-/-5/+5 tricolor: nuc constantino(hTERT,EGR1,RPS14)x2[199]7q-/-7 tri: nuc constantino(CEN7,D 9U7160,M4X7116)x2[200]p53 (17p13.1)/ NF1 (17q11): nuc constantino(TP53,NF1)x2[200]ETV6 (12p13): nuc constantino(ETV6x2)[198]KMT2A (MLL) (11q23)*: nuc constantino(EXR1Xf6)[200]RPN1/MECOM (3q): nuc constantino(RPN1,MECOM)x2[191] Comments:The results of this assay have been determined within thelimitations described and should not be used interchangeablywith resulting values from other methods or kits. These results are intended to be used as an adjunct to other concurrent testing in patient care management. Therefore,the presence or absence of a malignant disease cannot be determined based solely on these results. Clinicalcorrelation is advised. Nuclei Scored: 200 Electronic SignatureDavid Kristian, M.D., Pathologist CHROMOSOME SEA BONE [id number] 14:43:00* Test Item Value Reference Range Interpretation Comments CHROMOSOME SEA BONE MARROW (test code = CHROMBM) Oncology Chromosome Analysis Karyotype: 46,XX[20] Interpretation:NORMAL FEMALE KARYOTYPECytogenetic analysis shows a normal female karyotype in allcells analyzed. Recommendation:This result should be interpreted in conjunction withconcurrent FISH, immunophenotypic, molecular and clinicalfindings. Periodic monitoring by flow, cytogenetics, FISH and molecular studies is recommended. Comments:Standard cytogenetic analysis may not detect subtlesubmicroscopic rearrangements and may not include metaphasesfrom abnormal cell populations with low mitotic rates or present in low levels. Test Detail:Metaphases Counted: 20Metaphases Analyzed: 20Metaphases Karyotyped: 2Culture Type: 24EB, 48EBBanding Technique: GTGBanding Resolution: 400 Electronic SignatureMohamed MD Sandra, MS, ABMGG, FACMGG Vi Lozada M.D., Ph.D., Pathologist - [facility]. LEUK/LYMPHOMA [id number] 14:43:00* Test Item Value Reference Range Interpretation Comments LEUK/LYMPHOMA PANEL (test code = LEULYM) Flow Cytometry Analysis Specimen Type: Bone MarrowBody Site: Left Iliac Diagnosis:No diagnostic immunophenotypic abnormalities detected. Comments:No immunophenotypic evidence of a lymphoproliferativedisorder, acute leukemia, increase in blasts, or plasma cellneoplasm is identified. Myeloproliferative neoplasms and myelodysplastic syndromesmay not show antigenic abnormalities on myeloid cells andcannot be ruled out by flow cytometry. Please correlatethe result with morphological findings, other pertinent laboratory data and clinical information. Flow Differential (%) and Population Analysis: Lymphocytes: 8.3% T-cells (75% of lymphoid cells) show a CD4/CD8 ratio of about 2.1 without overt phenotypic abnormality. NK-cells (16% of lymphoid cells) are unremarkable. Mature B-cells (6% of lymphoid cells) are polyclonal (kappa:lambda 1.2).Monocytes: 6.3% Monocytes show phenotypic evidence of maturation without dysmaturation.Granulocytes: 81.5% Granulocytes show phenotypic evidence of maturation without dysmaturation.CD45 Dim: 2.6% CD34+ events (1.1% of total cells) are not increased. Precursor B-cells (0.1% of total cells) are unremarkable.CD45 Ne.2% Erythroids and cell debris, unremarkable.Plasma Cells: 0.0% Plasma cells are absent.CD34+: 1.1% Markers Performed:cCD3, cCD22, cCD79a, CD2, CD3, CD4, CD5, CD7, CD8, CD10,CD11b, CD11c, CD13, CD14, CD15, CD16, CD19, CD20, CD23,CD33, CD34, CD38, CD41, CD45, CD56, CD64, CD71, CD117,CD123, CD138, NB525v, cMPO, FMC-7, HLA-DR, [place], Lambda, nTdT (37 Markers) Microscopic DescriptionA digital image of a cytospin slide was reviewed for QApurposes. Sandi Ho M.D., Hematopathologist CHEMISTRY MISCELLANEOUS [id number] 14:41:00* Test Item Value Reference Range Interpretation Comments CHEMISTRY TEST (test code = TESTC) CHEMISTRY TEST RESULT (test code = RESULTC) FLUORESCENCE INSITU [id number] 14:41:00* Test Item Value Reference Range Interpretation Comments FLUORESCENCE INSITU HYBRID (test code = FISH) FISH Analysis: MDS Extended Results: Normal Interpretation:inv(3)/t(3;3): Not DetectedDel(5q): Not DetectedMonosomy 5: Not DetectedDel(7q): Not DetectedMonosomy 7: Not DetectedTrisomy 8: Not DetectedDel(17p) TP53: Not DetectedTrisomy 19: Not DetectedTetrasomy 19: Not DetectedDel(20q): Not DetectedETV6 Rearrangement: Not UtzrxojnHCH5S(MLL) Rearrangement: Not Detected Fluorescence in situ hybridizati on (FISH) analysis wasperformed using a specific set of probes for myelodysplasticsyndrome. Counts for all probe signals were within the normalreference range. This finding represents a NORMAL result. Probe Set Detail:+19: nuc constantino(ACP5,BLVRB)x2[199]Chromosome 8: nuc constantino(CEN8x2)[200]Chromosome 20: nuc constantino(U20P070,20qter)X2[199]5q-/-5/+5 tricolor: nuc constantino(hTERT,EGR1,RPS14)x2[199]7q-/-7 tri: nuc constantino(CEN7,D 7X8287,B2T2941)x2[200]p53 (17p13.1)/ NF1 (17q11): nuc constantino(TP53,NF1)x2[200]ETV6 (12p13): nuc constantino(ETV6x2)[198]KMT2A (MLL) (11q23)*: nuc constantino(GAB1Fb8)[200]RPN1/MECOM (3q): nuc constantino(RPN1,MECOM)x2[191] Comments:The results of this assay have been determined within thelimitations described and should not be used interchangeablywith resulting values from other methods or kits. These results are intended to be used as an adjunct to other concurrent testing in patient care management. Therefore,the presence or absence of a malignant disease cannot be determined based solely on these results. Clinicalcorrelation is advised. Nuclei Scored: 200 Electronic SignatureDaelin Townsend M.D., Pathologist CHROMOSOME SEA BONE [id number] 14:41:00* Test Item Value Reference Range Interpretation Comments CHROMOSOME SEA BONE MARROW (test code = CHROMBM) LEUK/LYMPHOMA [id number] 14:41:00* Test Item Value Reference Range Interpretation Comments LEUK/LYMPHOMA PANEL (test code = LEULYM) Flow Cytometry Analysis Specimen Type: Bone MarrowBody Site: Left Iliac Diagnosis:No diagnostic immunophenotypic abnormalities detected. Comments:No immunophenotypic evidence of a lymphoproliferativedisorder, acute leukemia, increase in blasts, or plasma cellneoplasm is identified. Myeloproliferative neoplasms and myelodysplastic syndromesmay not show antigenic abnormalities on myeloid cells andcannot be ruled out by flow cytometry. Please correlatethe result with morphological findings, other pertinent laboratory data and clinical information. Flow Differential (%) and Population Analysis: Lymphocytes: 8.3% T-cells (75% of lymphoid cells) show a CD4/CD8 ratio of about 2.1 without overt phenotypic abnormality. NK-cells (16% of lymphoid cells) are unremarkable. Mature B-cells (6% of lymphoid cells) are polyclonal (kappa:lambda 1.2).Monocytes: 6.3% Monocytes show phenotypic evidence of maturation without dysmaturation.Granulocytes: 81.5% Granulocytes show phenotypic evidence of maturation without dysmaturation.CD45 Dim: 2.6% CD34+ events (1.1% of total cells) are not increased. Precursor B-cells (0.1% of total cells) are unremarkable.CD45 Ne.2% Erythroids and cell debris, unremarkable.Plasma Cells: 0.0% Plasma cells are absent.CD34+: 1.1% Markers Performed:cCD3, cCD22, cCD79a, CD2, CD3, CD4, CD5, CD7, CD8, CD10,CD11b, CD11c, CD13, CD14, CD15, CD16, CD19, CD20, CD23,CD33, CD34, CD38, CD41, CD45, CD56, CD64, CD71, CD117,CD123, CD138, ZN224c, cMPO, FMC-7, HLA-DR, [place], Lambda, nTdT (37 Markers) Microscopic DescriptionA digital image of a cytospin slide was reviewed for QApurposes. Sandi Ho M.D., Hematopathologist CHEMISTRY MISCELLANEOUS [id number] 14:38:00* Test Item Value Reference Range Interpretation Comments CHEMISTRY TEST (test code = TESTC) CHEMISTRY TEST RESULT (test code = RESULTC) FLUORESCENCE INSITU [id number] 14:38:00* Test Item Value Reference Range Interpretation Comments FLUORESCENCE INSITU HYBRID (test code = FISH) CHROMOSOME SEA BONE [id number] 14:38:00* Test Item Value Reference Range Interpretation Comments CHROMOSOME SEA BONE MARROW (test code = CHROMBM) LEUK/LYMPHOMA [id number] 14:38:00* Test Item Value Reference Range Interpretation Comments LEUK/LYMPHOMA PANEL (test code = LEULYM) Flow Cytometry Analysis Specimen Type: Bone MarrowBody Site: Left Iliac Diagnosis:No diagnostic immunophenotypic abnormalities detected. Comments:No immunophenotypic evidence of a lymphoproliferativedisorder, acute leukemia, increase in blasts, or plasma cellneoplasm is identified. Myeloproliferative neoplasms and myelodysplastic syndromesmay not show antigenic abnormalities on myeloid cells andcannot be ruled out by flow cytometry. Please correlatethe result with morphological findings, other pertinent laboratory data and clinical information. Flow Differential (%) and Population Analysis: Lymphocytes: 8.3% T-cells (75% of lymphoid cells) show a CD4/CD8 ratio of about 2.1 without overt phenotypic abnormality. NK-cells (16% of lymphoid cells) are unremarkable. Mature B-cells (6% of lymphoid cells) are polyclonal (kappa:lambda 1.2).Monocytes: 6.3% Monocytes show phenotypic evidence of maturation without dysmaturation.Granulocytes: 81.5% Granulocytes show phenotypic evidence of maturation without dysmaturation.CD45 Dim: 2.6% CD34+ events (1.1% of total cells) are not increased. Precursor B-cells (0.1% of total cells) are unremarkable.CD45 Ne.2% Erythroids and cell debris, unremarkable.Plasma Cells: 0.0% Plasma cells are absent.CD34+: 1.1% Markers Performed:cCD3, cCD22, cCD79a, CD2, CD3, CD4, CD5, CD7, CD8, CD10,CD11b, CD11c, CD13, CD14, CD15, CD16, CD19, CD20, CD23,CD33, CD34, CD38, CD41, CD45, CD56, CD64, CD71, CD117,CD123, CD138, XH885e, cMPO, FMC-7, HLA-DR, [place], Lambda, nTdT (37 Markers) Microscopic DescriptionA digital image of a cytospin slide was reviewed for QApurposes. Electronic SignatureSanisa Ho M.D., Hematopathologist - [facility] [id number] 14:19:00 Name: TAI GRANT [facility] : 1960 Age/S: 59 / F [address] [place] [address] Unit #: [id number] Loc: [place] [address] Phys: Satya Almanza MD Acct: [id number] Dis Date: Status: ADM IN PHONE #: [phone] Exam Date: 02/24/2020 1244 FAX #: [phone] Reason: SYNCOPE EXAMS: CPT CODE: [id number] [facility] JIGNA [id number] Bilateral carotid ultrasound 02/24/2020 HISTORY: Syncope TECHNIQUE: Clarke-scale, color Doppler and spectral Doppler of the carotid arteries was performed. Any reported ICA stenoses indirectly reference the distal internal carotid diameter as the denominator for stenosis measurement, utilizing consensus panel criteria. FINDINGS: Study is limited due to bandaging overlying the neck. Bilateral common carotid arteries and internal carotid arteries are not visualized. IMPRESSION: Limited study due to external bandaging. SL: [id number] at 1419 Reported and signed by: Vamsi Pabon M.D. CC: Satya Almanza MD; Callum Beltre MD; Jaspreet Jeerz MD Technologist: Cristine Salazar RDMS(AB)(OB) Trnscb Date/Time: 02/24/2020 (1419) [id number] Orig Print D/T: S: 02/24/2020 (5635) Probe: PAGE 1 Signed Report GLUBED 2020-02-24 12:29:00* Test Item Value Reference Range Interpretation Comments GLUBED (test code = GLUBED) 131 MG/DL 70-110 H Performed by certified vibrating screed operator at [facility] [id number] 08:54:00* Test Item Value Reference Range Interpretation Comments GLUBED (test code = GLUBED) 93 MG/DL 70-110 N Performed by certified vibrating screed operator at [facility] CBC W/AUTO [id number] 04:51:00* Test Item Value Reference Range Interpretation Comments WHITE BLOOD CELL (test code = WBC) 2.52 x10 3/uL 4.5-11.0 L RED BLOOD CELL (test code = RBC) 3.47 x10 6/uL 3.54-5.02 L HEMOGLOBIN (test code = HGB) 11.1 g/dL 11.0-15.0 N HEMATOCRIT (test code = HCT) 35.2 % 33.0-45.0 N MEAN CELL VOLUME (test code = MCV) 101.4 fL 81.0-99.0 H MEAN CELL HGB (test code = MCH) 32.0 pg 27.0-33.0 N MEAN CELL HGB CONCETRATION (test code = MCHC) 31.5 g/dL 33.0-37. 0 L RED CELL DISTRIBUTION WIDTH CV (test code = RDW) 17.8 % 11.5- 14.5 H RED CELL DISTRIBUTION WIDTH SD (test code = RDW-SD) 66.1 fL 37 .0-54.0 H PLATELET COUNT (test code = PLT) 134 x10 3/uL 150-400 L MEAN PLATELET VOLUME (test code = MPV) 9.0 fL 7.0-9.0 N NEUTROPHIL % (test code = NT%) 52.4 % 56.0-77.0 L IMMATURE GRANULOCYTE % (test code = IG%) 0.8 % 0.0-2.0 N LYMPHOCYTE % (test code = LY%) 23.0 % 14.0-32.0 N MONOCYTE % (test code = MO%) 21.8 % 4.8-9.0 H EOSINOPHIL % (test code = EO%) 1.2 % 0.3-3.7 N BASOPHIL % (test code = BA%) 0.8 % 0.0-2.0 N NUCLEATED RBC % (test code = NRBC%) 0.0 % 0-0 N NEUTROPHIL # (test code = NT#) 1.32 x10 3/uL 2.0-7.6 L IMMATURE GRANULOCYTE # (test code = IG#) 0.02 x10 3/uL 0.00-0.03 N LYMPHOCYTE # (test code = LY#) 0.58 x10 3/uL 1.0-3.8 L MONOCYTE # (test code = MO#) 0.55 x10 3/uL 0.1-0.8 N EOSINOPHIL # (test code = EO#) 0.03 x10 3/uL 0.0-0.2 N BASOPHIL # (test code = BA#) 0.02 x10 3/uL 0.0-0.2 N NUCLEATED RBC # (test code = NRBC#) 0.00 x10 3/uL 0.0-0.1 N MANUAL DIFF REQUIRED (test code = MDIFF) NO SLIDE REVIEWED, CONSISTENT WITH AUTO DIFF. BASIC METABOLIC [id number] 04:50:00* Test Item Value Reference Range Interpretation Comments SODIUM (test code = NA) 138 mEq/L 134-147 N POTASSIUM (test code = K) 3.5 mEq/L 3.4-5.0 N CHLORIDE (test code = CL) 101 mEq/L 100-108 N CARBON DIOXIDE (test code = CO2) 31 mEq/L 21-33 N ANION GAP (test code = GAP) 10 0-20 N GLUCOSE (test code = GLU) 110 mg/dL 70-110 BLOOD UREA NITROGEN (test code = BUN) 14 mg/dL 7-18 GLOMERULAR FILTRATION RATE (test code = GFR) 12.2 90-95 L Units of measure = ml/min/1.73 m2 CREATININE (test code = CREAT) 3.8 mg/dL 0.6-1.3 H CALCIUM (test code = CA) 8.5 mg/dL 8.0-10.5 N [id number] 04:50:00* Test Item Value Reference Range Interpretation Comments MAGNESIUM (test code = MAG) 1.60 mg/dL 1.8-2.4 L CBC W/AUTO [id number] 04:28:00* Test Item Value Reference Range Interpretation Comments WHITE BLOOD CELL (test code = WBC) 2.52 x10 3/uL 4.5-11.0 L RED BLOOD CELL (test code = RBC) 3.47 x10 6/uL 3.54-5.02 L HEMOGLOBIN (test code = HGB) 11.1 g/dL 11.0-15.0 N HEMATOCRIT (test code = HCT) 35.2 % 33.0-45.0 N MEAN CELL VOLUME (test code = MCV) 101.4 fL 81.0-99.0 H MEAN CELL HGB (test code = MCH) 32.0 pg 27.0-33.0 N MEAN CELL HGB CONCETRATION (test code = MCHC) 31.5 g/dL 33.0-37. 0 L RED CELL DISTRIBUTION WIDTH CV (test code = RDW) 17.8 % 11.5- 14.5 H RED CELL DISTRIBUTION WIDTH SD (test code = RDW-SD) 66.1 fL 37 .0-54.0 H PLATELET COUNT (test code = PLT) 134 x10 3/uL 150-400 L MEAN PLATELET VOLUME (test code = MPV) 9.0 fL 7.0-9.0 N NEUTROPHIL % (test code = NT%) % 56.0-77.0 LYMPHOCYTE % (test code = LY%) % 14.0-32.0 NEUTROPHIL # (test code = NT#) x10 3/uL 2.0-7.6 LYMPHOCYTE # (test code = LY#) x10 3/uL 1.0-3.8 MANUAL DIFF REQUIRED (test code = MDIFF) [id number] 04:11:00* Test Item Value Reference Range Interpretation Comments GLUBED (test code = GLUBED) 102 MG/DL 70-110 N Performed by certified vibrating screed operator at [facility] [id number] 20:22:00* Test Item Value Reference Range Interpretation Comments GLUBED (test code = GLUBED) 127 MG/DL 70-110 H Performed by certified vibrating screed operator at [facility] [id number] 18:22:00* Test Item Value Reference Range Interpretation Comments GLUBED (test code = GLUBED) 132 MG/DL 70-110 H Performed by certified vibrating screed operator at [facility] [id number] 17:36:00* Test Item Value Reference Range Interpretation Comments GLUBED (test code = GLUBED) 103 MG/DL 70-110 N Performed by certified vibrating screed operator at [facility] [id number] 14:35:00* Test Item Value Reference Range Interpretation Comments GLUBED (test code = GLUBED) 122 MG/DL 70-110 H Performed by certified vibrating screed operator at [facility] [id number] 14:35:00* Test Item Value Reference Range Interpretation Comments GLUBED (test code = GLUBED) 118 MG/DL 70-110 H Performed by certified vibrating screed operator at [facility] CBC W/AUTO [id number] 10:26:00* Test Item Value Reference Range Interpretation Comments WHITE BLOOD CELL (test code = WBC) 2.62 x10 3/uL 4.5-11.0 L RED BLOOD CELL (test code = RBC) 3.00 x10 6/uL 3.54-5.02 L HEMOGLOBIN (test code = HGB) 9.6 g/dL 11.0-15.0 L HEMATOCRIT (test code = HCT) 31.0 % 33.0-45.0 L MEAN CELL VOLUME (test code = MCV) 103.3 fL 81.0-99.0 H MEAN CELL HGB (test code = MCH) 32.0 pg 27.0-33.0 N MEAN CELL HGB CONCETRATION (test code = MCHC) 31.0 g/dL 33.0-37. 0 L RED CELL DISTRIBUTION WIDTH CV (test code = RDW) 17.6 % 11.5- 14.5 H RED CELL DISTRIBUTION WIDTH SD (test code = RDW-SD) 66.0 fL 37 .0-54.0 H PLATELET COUNT (test code = PLT) 93 x10 3/uL 150-400 L MEAN PLATELET VOLUME (test code = MPV) 9.4 fL 7.0-9.0 H MANUAL DIFF REQUIRED (test code = MDIFF) YES WBC [id number] 10:26:00* Test Item Value Reference Range Interpretation Comments SEGMENTED NEUTROPHILS (test code = SEG) 62.4 % 37-69 N LYMPHOCYTE (test code = LYMPH) 18.3 % 23-55 L REACTIVE LYMPH (test code = RELYMPH) 0.9 % MONOCYTE (test code = MON) 14.7 % 0-10 H BASOPHIL (test code = BASO) 3.7 % 0.0-2.0 H NUCLEATED RED BLOOD CELL (test code = NRBC) 1.8 % POLYCHROMASIA (test code = POLC) SLIGHT POIKILOCYTOSIS (test code = POIK) SLIGHT ANISOCYTOSIS (test code = ANISO) 1+ MICROCYTOSIS (test code = MICR) FEW MACROCYTOSIS (test code = MACR) 1+ TEAR DROP CELLS (test code = TEAR) FEW STOMATOCYTES (test code = STO) RARE PLATELET ESTIMATE (test code = PLTEST) 100-125 THOUSAND ADEQUATE PLATELET MORPHOLOGY (test code = PLTMORPH) LARGE PLATELETS FEW LARGE PLTS SEEN CBC W/AUTO [id number] 10:18:00* Test Item Value Reference Range Interpretation Comments WHITE BLOOD CELL (test code = WBC) 2.62 x10 3/uL 4.5-11.0 L RED BLOOD CELL (test code = RBC) 3.00 x10 6/uL 3.54-5.02 L HEMOGLOBIN (test code = HGB) 9.6 g/dL 11.0-15.0 L HEMATOCRIT (test code = HCT) 31.0 % 33.0-45.0 L MEAN CELL VOLUME (test code = MCV) 103.3 fL 81.0-99.0 H MEAN CELL HGB (test code = MCH) 32.0 pg 27.0-33.0 N MEAN CELL HGB CONCETRATION (test code = MCHC) 31.0 g/dL 33.0-37. 0 L RED CELL DISTRIBUTION WIDTH CV (test code = RDW) 17.6 % 11.5- 14.5 H RED CELL DISTRIBUTION WIDTH SD (test code = RDW-SD) 66.0 fL 37 .0-54.0 H PLATELET COUNT (test code = PLT) 93 x10 3/uL 150-400 L MEAN PLATELET VOLUME (test code = MPV) 9.4 fL 7.0-9.0 H MANUAL DIFF REQUIRED (test code = MDIFF) YES WBC [id number] 10:18:00* Test Item Value Reference Range Interpretation Comments ANISOCYTOSIS (test code = ANISO) PLATELET ESTIMATE (test code = PLTEST) THOUSAND ADEQUATE CBC W/AUTO [id number] 10:18:00* Test Item Value Reference Range Interpretation Comments WHITE BLOOD CELL (test code = WBC) 2.62 x10 3/uL 4.5-11.0 L RED BLOOD CELL (test code = RBC) 3.00 x10 6/uL 3.54-5.02 L HEMOGLOBIN (test code = HGB) 9.6 g/dL 11.0-15.0 L HEMATOCRIT (test code = HCT) 31.0 % 33.0-45.0 L MEAN CELL VOLUME (test code = MCV) 103.3 fL 81.0-99.0 H MEAN CELL HGB (test code = MCH) 32.0 pg 27.0-33.0 N MEAN CELL HGB CONCETRATION (test code = MCHC) 31.0 g/dL 33.0-37. 0 L RED CELL DISTRIBUTION WIDTH CV (test code = RDW) 17.6 % 11.5- 14.5 H RED CELL DISTRIBUTION WIDTH SD (test code = RDW-SD) 66.0 fL 37 .0-54.0 H PLATELET COUNT (test code = PLT) 93 x10 3/uL 150-400 L MEAN PLATELET VOLUME (test code = MPV) 9.4 fL 7.0-9.0 H MANUAL DIFF REQUIRED (test code = MDIFF) YES WBC [id number] 10:18:00* Test Item Value Reference Range Interpretation Comments ANISOCYTOSIS (test code = ANISO) PLATELET ESTIMATE (test code = PLTEST) THOUSAND ADEQUATE BASIC METABOLIC [id number] 08:51:00* Test Item Value Reference Range Interpretation Comments SODIUM (test code = NA) 138 mEq/L 134-147 N POTASSIUM (test code = K) 4.0 mEq/L 3.4-5.0 N CHLORIDE (test code = CL) 103 mEq/L 100-108 N CARBON DIOXIDE (test code = CO2) 26 mEq/L 21-33 N ANION GAP (test code = GAP) 13 0-20 N GLUCOSE (test code = GLU) 86 mg/dL 70-110 N BLOOD UREA NITROGEN (test code = BUN) 24 mg/dL 7-18 H GLOMERULAR FILTRATION RATE (test code = GFR) 8.0 90-95 L Units of measure = ml/min/1.73 m2 CREATININE (test code = CREAT) 5.5 mg/dL 0.6-1.3 H CALCIUM (test code = CA) 8.6 mg/dL 8.0-10.5 N [id number] 08:35:00* Test Item Value Reference Range Interpretation Comments GLUBED (test code = GLUBED) 90 MG/DL 70-110 N Performed by certified vibrating screed operator at [facility] CBC W/AUTO [id number] 07:40:00* Test Item Value Reference Range Interpretation Comments WHITE BLOOD CELL (test code = WBC) 2.62 x10 3/uL 4.5-11.0 L RED BLOOD CELL (test code = RBC) 3.00 x10 6/uL 3.54-5.02 L HEMOGLOBIN (test code = HGB) 9.6 g/dL 11.0-15.0 L HEMATOCRIT (test code = HCT) 31.0 % 33.0-45.0 L MEAN CELL VOLUME (test code = MCV) 103.3 fL 81.0-99.0 H MEAN CELL HGB (test code = MCH) 32.0 pg 27.0-33.0 N MEAN CELL HGB CONCETRATION (test code = MCHC) 31.0 g/dL 33.0-37. 0 L RED CELL DISTRIBUTION WIDTH CV (test code = RDW) 17.6 % 11.5- 14.5 H RED CELL DISTRIBUTION WIDTH SD (test code = RDW-SD) 66.0 fL 37 .0-54.0 H PLATELET COUNT (test code = PLT) 93 x10 3/uL 150-400 L MEAN PLATELET VOLUME (test code = MPV) 9.4 fL 7.0-9.0 H NEUTROPHIL % (test code = NT%) % 56.0-77.0 LYMPHOCYTE % (test code = LY%) % 14.0-32.0 NEUTROPHIL # (test code = NT#) x10 3/uL 2.0-7.6 LYMPHOCYTE # (test code = LY#) x10 3/uL 1.0-3.8 MANUAL DIFF REQUIRED (test code = MDIFF) [id number] 07:08:00* Test Item Value Reference Range Interpretation Comments GLUBED (test code = GLUBED) 90 MG/DL 70-110 N Performed by certified vibrating screed operator at [facility] [id number] 20:04:00* Test Item Value Reference Range Interpretation Comments GLUBED (test code = GLUBED) 83 MG/DL 70-110 N Performed by certified vibrating screed operator at [facility] [id number] 17:30:00* Test Item Value Reference Range Interpretation Comments GLUBED (test code = GLUBED) 124 MG/DL 70-110 H Performed by certified vibrating screed operator at [facility] [id number] 17:30:00* Test Item Value Reference Range Interpretation Comments GLUBED (test code = GLUBED) 111 MG/DL 70-110 H Performed by certified vibrating screed operator at [facility] [id number] 11:10:00* Test Item Value Reference Range Interpretation Comments GLUBED (test code = GLUBED) 99 MG/DL 70-110 N Performed by certified vibrating screed operator at [facility] SURGICAL [id number] 10:41:00 RUN DATE: 02/22/20 [facility] *LIVE* PAGE 1 RUN TIME: 1041 Specimen Inqui ry RUN USER: INTERFACE PATIENT: TAI GRANT ACCT #: G [id number] LOC: G.T U #: [id number] AGE/SX: 59/F [place] [facility] [place] [place]ALEX DR: Jonathan Vogel : 64 BED: 1 DIS: 02/17/20 STATUS: DIS IN TLOC: SPEC #: [id number] RECD: 02/15/20 STATUS: NITO REQ #: [id number] JAZMINE: 02/15/[address]: Jonathan Vogel MD ENTERED: 02/21/20 SP TYPE: SURG SPEC OTHR DR: Jeanette Morataya MD, Nicholas PA-C Hafez, Jawdat R DPM L Fritz castillo MD, Alberto J MD Rosen blatt, Michael MD See rangan, Geetha MD Sub ramanyam, Kalyanam MDORDERED: GM LEVEL 4 CODES: [id number] - BONE MARROW, NO COPIES TO: oJnathan Meyers MD [address] [facility] [address] [place] [phone] Jeanette Mayo MD [address] [place] [phone] Atul Clarke PA-C [address] [place] [address] Edis Leonard DPM [address] [place] [address] [address] Fritz Webb MD [address] [place] [address] Jaspreet Jerez MD [address] [facility] [address] [place] [id number] C ONTINUED ON NEXT PAGE RUN DATE: 02/22/20 [facility] *LIVE* PAGE 2 RUN TIME: 1041 Specimen Inquiry RUN USER: INTERFACE SPEC #: [id number] PATIENT: TAI GRANT #[id number] (Continued) - COPIES TO: (Continued) Faraz Colin MD [address] [place] [address] Bertha Martin MD [address] [place] [address] Feliz Tam MD [address] [place] [address] [address] [place] [address] PROCEDURES: GM LEVEL 4 (Inc omplete) TISSUES: 1. BONE MARROW, NOS - Bone marrow, left iliac, asp. bx. COMMENTS The case is sent to [facility] for consult, se e outside reports. The patient has pancytopenia, the current bone marrow is h ypercellular with no increase in blasts confirmed by CD34, CD117 immunohistoch emical stains as well as differential count on the bone marrow aspirate ewa r. Megakaryocytes are increased in number. Prominent dysplastic fea tures are identified mainly in the megakaryocytic lineage in the form of lar ge megakaryocytes with separate nuclear lobes ( >10%). Myeloid precursors show mild dysplastic features in the form of hypolobated and hypogranular cells. Overall the morphological features are suspicious for myelodysplastic syndrome pending FISH for extended MDS panel, cytoge netic analysis and next gene sequencing for MDS/CMML panel. This study is part of a comprehensive assessment of a hematopathology specimen that integrates morphology and other concurrent testing. Please see the final comprehensi ve [facility] report and other individual reports under the same master accession number for final diagnosis and details. FINAL DIAGNOSIS Bone marrow, left iliac, asp. bx.: Myelodysplastic syndrome involving a hypercellular bone marrow 55% cellular, see comment. GROSS AND MICROSCOPIC BONE MARROW ASPIRATE SMEAR: Aspirate smears are adequate for evaluation. Myeloid and erythroid precursors are pr esent. Myeloid precursors show left shift to immaturity with 2% blasts. Myel oid precursors show mild dysplastic features in the form of hypoloba nyasia and hypogranular cells. CONTINUED ON NEXT PAGE RUN DATE: 02/22/20 [facility] *LIVE* PAGE 3 RUN TIME: 1041 S catherine Inquiry RUN USER: INTERFACE SPEC #: [id number] PATIENT: TAI GRANT #[id number] (Continued) GROSS AND MICROSCOPIC (Continued) Megakaryocytes are present and show promi nent dysplastic features in the form of large megakaryocytes with separate nuclear lobes. No increase in lymphocytes or plasma cells is seen. BONE MARROW CORE BIOPSY: The core biopsy is adequ ate for evaluation with trilineage hematopoiesis, and the cellularity is 55 % cellular. Myeloid and erythroid precursors are present and M:E ratio is 1.6 Megakaryocytes are increased in number, some megakaryocytes are large and show separate nuclei. The blast count is 2%. No lymphoid aggregates or increase in plasma cells are identified. BONE MARROW CLOT SECTION: The clot section is adequate for eval uation and shows the same morphological picture as the core biopsy Iron stain: Iron storage is present in the smear and biopsy. No incre ase in sideroblasts or ring sideroblasts are identified POST-OP DIAGNOSIS Pancytopenia, acute leukemia PRE-OP ANGELA GNOSIS Pancytopenia, acute leukemia REVIEWED BY: WALDEMAR Signed SIGNATURE ON FILE Orlin Alvarez DO 02/22/20 1041 END OF O RT SURGICAL [id number] 10:41:00 RUN DATE: 03/29/20 [facility] *LIVE* PAGE 1 RUN TIME: 847 Specimen Inqui ry RUN USER: INTERFACE PATIENT: TAI GRANT ACCT #: G [id number] LOC: [facility] U #: [id number] AGE/SX: 59/F [place]OM[place] [facility] [place]20REG DR: Jonathan Vogel : 64 BED: 1 DIS: 02/17/20 STATUS: DIS IN TLOC: SPEC #: [id number] RECD: 02/15/20 STATUS: NITO REQ #: [id number] JZAMINE: 02/15/20 [facility] DR: Jonathan Vogel MD ENTERED: 02/21/20 SP TYPE: SURG SPEC OTHR DR: Jeanette Morataya MD, Nicholas PA-C Hafez, Jawdat R DPM L akhani, Asif MD Romer o, Alberto J MD Rosen blatt, Michael MD See [facility],Bertha MD Sub ramanyam,Kalyanam MDORDERED: GM LEVEL 4 CODES: [id number] - BONE MARROW, NO COPIES TO: Jonathan Meyers MD [address] [facility] [address] [place] [address] Jeanette Mayo MD [address] [place] [phone] Atul Clarke PA-C [address] [place] [phone] Edis Leonard DPM [address] [facility] [address] [place] [address] Fritz Webb MD [address] [place], [place] [phone] Jaspreet Jerez MD [address] [place] [id number] C ONTINUED ON NEXT PAGE RUN DATE: 03/29/20 [facility] *LIVE* PAGE 2 RUN TIME: 0848 Specimen Inquiry RUN USER: INTERFACE SPEC #: [id number] PATIENT: TAI GRANTSADE #[id number] (Continued) - COPIES TO: (Continued) Faraz Colin MD [address] [place] [address] Bertha Martin MD [address] [place] [phone] Feliz Tam MD [address] [facility] [address] [place] [phone] PROCEDURES: GM LEVEL 4 (Inc omplete) TISSUES: 1. BONE MARROW, NOS - Bone marrow, left iliac, asp. bx. ADDENDUM FINDINGS Addendum #1 Entered: 03/28/20-08 43 [facility]: Final Diagnosis: -Consistent with low grade myelodysplastic syndrome involving a hypercellular bone marrow 55% cellular with no g enetic or chromosomal abnormalities. Interpr etation by [facility], see outside reports. Addendum S igned SIGNATURE ON FILE Orlin Alvarez Monica YI 03/29/20 0848 ------- ----- COMMENTS The case is sent to [facility] for consult, see o gaside reports. The patient has pancytopenia, the current bone marrow is hype rcellular with no increase in blasts confirmed by CD34, CD117 immunohistochemi mitchell stains as well as differential count on the bone marrow aspirate smear. Megakaryocytes are increased in number. Prominent dysplastic featur es are identified mainly in the megakaryocytic lineage in the form of large megakaryocytes with separate nuclear lobes ( >10%). Myeloid precursors show mild dysplastic features in the form of hypolobated and hypogranular cells. Overall the morphological features are suspicious for myelodysplastic syndrome pending FISH for extended MDS panel, cytogenetic analysis and next gene sequencing for MDS/CMML panel. This study is part of a comprehensive CONTINUED ON NEXT PAGE RUN DATE: 03/29/20 [facility] *LIVE* PAGE 3 RUN TIME: 847 Specimen Inq MyWebzzry RUN USER: INTERFACE SPEC #: [id number] PATIENT: JAIRON GRANT DARYL #[id number] (Continued) COMMENTS (Continued) assessment of a hematopathology specimen that integr ates morphology and other concurrent testing. Please see the final compreh ensive [facility] report and other individual reports under the same master acces yovani number for final diagnosis and details. FINAL DIAGNOSIS Bone marrow, left iliac, asp. bx. : Myelodysplastic syndrome involving a hypercellular bone marrow 55% cellul ar, see comment. GROSS AND MICROSCOPIC BONE MARROW ASPIRATE SMEAR: Aspir ate smears are adequate for evaluation. Myeloid and erythroid precursors ar e present. Myeloid precursors show left shift to immaturity with 2% blasts. Myeloid precursors show mild dysplastic features in the form of hypo lobated and hypogranular cells. Megakaryocytes are present and show promi nent dysplastic features in the form of large megakaryocytes with separate nuclear lobes. No increase in lymphocytes or plasma cells is seen. BONE MARROW CORE BIOPSY: The core biopsy is adequ ate for evaluation with trilineage hematopoiesis, and the cellularity is 55 % cellular. Myeloid and erythroid precursors are present and M:E ratio is 1.6 Megakaryocytes are increased in number, some megakaryocytes are large and show separate nuclei. The blast count is 2%. No lymphoid aggregates or increase in plasma cells are identified. BONE MARROW CLOT SECTION: The clot section is adequate for eval uation and shows the same morphological picture as the core biopsy Iron stain: Iron storage is present in the smear and biopsy. No incre ase in sideroblasts or ring sideroblasts are identified POST-OP DIAGNOSIS Pancytopenia, acute leukemia PRE-OP ANGELA GNOSIS Pancytopenia, acute leukemia REVIEWED BY: WALDEMAR Signed SIGNATURE ON FILE Orlin Alvarez DO 02/22/20 1041 END OF REPORT GLUBED 2020-02-21 21:28:00* Test Item Value Reference Range Interpretation Comments GLUBED (test code = GLUBED) 87 MG/DL 70-110 N Performed by certified vibrating screed operator at [facility] [id number] 17:48:00* Test Item Value Reference Range Interpretation Comments GLUBED (test code = GLUBED) 130 MG/DL 70-110 H Performed by certified vibrating screed operator at [facility] CBC W/AUTO [id number] 13:54:00* Test Item Value Reference Range Interpretation Comments WHITE BLOOD CELL (test code = WBC) 2.16 x10 3/uL 4.5-11.0 L RED BLOOD CELL (test code = RBC) 2.80 x10 6/uL 3.54-5.02 L HEMOGLOBIN (test code = HGB) 8.8 g/dL 11.0-15.0 L HEMATOCRIT (test code = HCT) 28.6 % 33.0-45.0 L MEAN CELL VOLUME (test code = MCV) 102.1 fL 81.0-99.0 H MEAN CELL HGB (test code = MCH) 31.4 pg 27.0-33.0 N MEAN CELL HGB CONCETRATION (test code = MCHC) 30.8 g/dL 33.0-37. 0 L RED CELL DISTRIBUTION WIDTH CV (test code = RDW) 18.0 % 11.5- 14.5 H RED CELL DISTRIBUTION WIDTH SD (test code = RDW-SD) 67.1 fL 37 .0-54.0 H PLATELET COUNT (test code = PLT) 81 x10 3/uL 150-400 L MEAN PLATELET VOLUME (test code = MPV) 9.3 fL 7.0-9.0 H NEUTROPHIL % (test code = NT%) 55.1 % 56.0-77.0 L IMMATURE GRANULOCYTE % (test code = IG%) 0.5 % 0.0-2.0 N LYMPHOCYTE % (test code = LY%) 22.7 % 14.0-32.0 N MONOCYTE % (test code = MO%) 19.4 % 4.8-9.0 H EOSINOPHIL % (test code = EO%) 1.4 % 0.3-3.7 N BASOPHIL % (test code = BA%) 0.9 % 0.0-2.0 N NUCLEATED RBC % (test code = NRBC%) 0.0 % 0-0 N NEUTROPHIL # (test code = NT#) 1.19 x10 3/uL 2.0-7.6 L IMMATURE GRANULOCYTE # (test code = IG#) 0.01 x10 3/uL 0.00-0.03 N LYMPHOCYTE # (test code = LY#) 0.49 x10 3/uL 1.0-3.8 L MONOCYTE # (test code = MO#) 0.42 x10 3/uL 0.1-0.8 N EOSINOPHIL # (test code = EO#) 0.03 x10 3/uL 0.0-0.2 N BASOPHIL # (test code = BA#) 0.02 x10 3/uL 0.0-0.2 N NUCLEATED RBC # (test code = NRBC#) 0.00 x10 3/uL 0.0-0.1 N MANUAL DIFF REQUIRED (test code = MDIFF) NO PLT [id number] 13:54:00* Test Item Value Reference Range Interpretation Comments PLATELET ESTIMATE (test code = PLTEST) 108-135 THOUSAND ADEQUATE PLATELET MORPHOLOGY (test code = PLTMORPH) LARGE PLATELETS FEW LARGE PLTS SEEN BASIC METABOLIC [id number] 13:49:00* Test Item Value Reference Range Interpretation Comments SODIUM (test code = NA) 139 mEq/L 134-147 N POTASSIUM (test code = K) 4.6 mEq/L 3.4-5.0 N CHLORIDE (test code = CL) 102 mEq/L 100-108 N CARBON DIOXIDE (test code = CO2) 32 mEq/L 21-33 N ANION GAP (test code = GAP) 10 0-20 N GLUCOSE (test code = GLU) 92 mg/dL 70-110 BLOOD UREA NITROGEN (test code = BUN) 29 mg/dL 7-18 H GLOMERULAR FILTRATION RATE (test code = GFR) 7.4 90-95 L Units of measure = ml/min/1.73 m2 CREATININE (test code = CREAT) 5.9 mg/dL 0.6-1.3 H CALCIUM (test code = CA) 8.7 mg/dL 8.0-10.5 N CBC W/AUTO [id number] 13:30:00* Test Item Value Reference Range Interpretation Comments WHITE BLOOD CELL (test code = WBC) 2.16 x10 3/uL 4.5-11.0 L RED BLOOD CELL (test code = RBC) 2.80 x10 6/uL 3.54-5.02 L HEMOGLOBIN (test code = HGB) 8.8 g/dL 11.0-15.0 L HEMATOCRIT (test code = HCT) 28.6 % 33.0-45.0 L MEAN CELL VOLUME (test code = MCV) 102.1 fL 81.0-99.0 H MEAN CELL HGB (test code = MCH) 31.4 pg 27.0-33.0 N MEAN CELL HGB CONCETRATION (test code = MCHC) 30.8 g/dL 33.0-37. 0 L RED CELL DISTRIBUTION WIDTH CV (test code = RDW) 18.0 % 11.5- 14.5 H RED CELL DISTRIBUTION WIDTH SD (test code = RDW-SD) 67.1 fL 37 .0-54.0 H PLATELET COUNT (test code = PLT) 81 x10 3/uL 150-400 L MEAN PLATELET VOLUME (test code = MPV) 9.3 fL 7.0-9.0 H NEUTROPHIL % (test code = NT%) 55.1 % 56.0-77.0 L IMMATURE GRANULOCYTE % (test code = IG%) 0.5 % 0.0-2.0 N LYMPHOCYTE % (test code = LY%) 22.7 % 14.0-32.0 N MONOCYTE % (test code = MO%) 19.4 % 4.8-9.0 H EOSINOPHIL % (test code = EO%) 1.4 % 0.3-3.7 N BASOPHIL % (test code = BA%) 0.9 % 0.0-2.0 N NUCLEATED RBC % (test code = NRBC%) 0.0 % 0-0 N NEUTROPHIL # (test code = NT#) 1.19 x10 3/uL 2.0-7.6 L IMMATURE GRANULOCYTE # (test code = IG#) 0.01 x10 3/uL 0.00-0.03 N LYMPHOCYTE # (test code = LY#) 0.49 x10 3/uL 1.0-3.8 L MONOCYTE # (test code = MO#) 0.42 x10 3/uL 0.1-0.8 N EOSINOPHIL # (test code = EO#) 0.03 x10 3/uL 0.0-0.2 N BASOPHIL # (test code = BA#) 0.02 x10 3/uL 0.0-0.2 N NUCLEATED RBC # (test code = NRBC#) 0.00 x10 3/uL 0.0-0.1 N MANUAL DIFF REQUIRED (test code = MDIFF) NO PLT [id number] 13:30:00* Test Item Value Reference Range Interpretation Comments PLATELET ESTIMATE (test code = PLTEST) THOUSAND ADEQUATE CBC W/AUTO [id number] 13:30:00* Test Item Value Reference Range Interpretation Comments WHITE BLOOD CELL (test code = WBC) 2.16 x10 3/uL 4.5-11.0 L RED BLOOD CELL (test code = RBC) 2.80 x10 6/uL 3.54-5.02 L HEMOGLOBIN (test code = HGB) 8.8 g/dL 11.0-15.0 L HEMATOCRIT (test code = HCT) 28.6 % 33.0-45.0 L MEAN CELL VOLUME (test code = MCV) 102.1 fL 81.0-99.0 H MEAN CELL HGB (test code = MCH) 31.4 pg 27.0-33.0 N MEAN CELL HGB CONCETRATION (test code = MCHC) 30.8 g/dL 33.0-37. 0 L RED CELL DISTRIBUTION WIDTH CV (test code = RDW) 18.0 % 11.5- 14.5 H RED CELL DISTRIBUTION WIDTH SD (test code = RDW-SD) 67.1 fL 37 .0-54.0 H PLATELET COUNT (test code = PLT) 81 x10 3/uL 150-400 L MEAN PLATELET VOLUME (test code = MPV) 9.3 fL 7.0-9.0 H NEUTROPHIL % (test code = NT%) 55.1 % 56.0-77.0 L IMMATURE GRANULOCYTE % (test code = IG%) 0.5 % 0.0-2.0 N LYMPHOCYTE % (test code = LY%) 22.7 % 14.0-32.0 N MONOCYTE % (test code = MO%) 19.4 % 4.8-9.0 H EOSINOPHIL % (test code = EO%) 1.4 % 0.3-3.7 N BASOPHIL % (test code = BA%) 0.9 % 0.0-2.0 N NUCLEATED RBC % (test code = NRBC%) 0.0 % 0-0 N NEUTROPHIL # (test code = NT#) 1.19 x10 3/uL 2.0-7.6 L IMMATURE GRANULOCYTE # (test code = IG#) 0.01 x10 3/uL 0.00-0.03 N LYMPHOCYTE # (test code = LY#) 0.49 x10 3/uL 1.0-3.8 L MONOCYTE # (test code = MO#) 0.42 x10 3/uL 0.1-0.8 N EOSINOPHIL # (test code = EO#) 0.03 x10 3/uL 0.0-0.2 N BASOPHIL # (test code = BA#) 0.02 x10 3/uL 0.0-0.2 N NUCLEATED RBC # (test code = NRBC#) 0.00 x10 3/uL 0.0-0.1 N MANUAL DIFF REQUIRED (test code = MDIFF) NO PLT [id number] 13:30:00* Test Item Value Reference Range Interpretation Comments PLATELET ESTIMATE (test code = PLTEST) THOUSAND ADEQUATE [id number] 08:41:00* Test Item Value Reference Range Interpretation Comments GLUBED (test code = GLUBED) 82 MG/DL 70-110 N Performed by certified vibrating screed operator at [facility] [id number] 21:07:00* Test Item Value Reference Range Interpretation Comments GLUBED (test code = GLUBED) 85 MG/DL 70-110 N Performed by certified vibrating screed operator at [facility] [id number] 17:23:00* Test Item Value Reference Range Interpretation Comments GLUBED (test code = GLUBED) 91 MG/DL 70-110 N Performed by certified vibrating screed operator at [facility] [id number] 17:02:00* Test Item Value Reference Range Interpretation Comments GLUBED (test code = GLUBED) 85 MG/DL 70-110 N Performed by certified vibrating screed operator at [facility] CBC W/AUTO [id number] 12:09:00* Test Item Value Reference Range Interpretation Comments WHITE BLOOD CELL (test code = WBC) 2.30 x10 3/uL 4.5-11.0 L RED BLOOD CELL (test code = RBC) 2.66 x10 6/uL 3.54-5.02 L HEMOGLOBIN (test code = HGB) 8.5 g/dL 11.0-15.0 L HEMATOCRIT (test code = HCT) 27.6 % 33.0-45.0 L MEAN CELL VOLUME (test code = MCV) 103.8 fL 81.0-99.0 H MEAN CELL HGB (test code = MCH) 32.0 pg 27.0-33.0 N MEAN CELL HGB CONCETRATION (test code = MCHC) 30.8 g/dL 33.0-37. 0 L RED CELL DISTRIBUTION WIDTH CV (test code = RDW) 18.9 % 11.5- 14.5 H RED CELL DISTRIBUTION WIDTH SD (test code = RDW-SD) 70.7 fL 37 .0-54.0 H PLATELET COUNT (test code = PLT) 54 x10 3/uL 150-400 L MEAN PLATELET VOLUME (test code = MPV) 9.9 fL 7.0-9.0 H MANUAL DIFF REQUIRED (test code = MDIFF) YES WBC [id number] 12:09:00* Test Item Value Reference Range Interpretation Comments SEGMENTED NEUTROPHILS (test code = SEG) 72.7 % 37-69 H BAND NEUTROPHIL (test code = BAND) 3.6 % 0.0-10.0 N LYMPHOCYTE (test code = LYMPH) 9.1 % 23-55 L MONOCYTE (test code = MON) 10.0 % 0-10 N EOSINOPHIL (test code = EOS) 3.7 % 0.0-4.0 N METAMYELOCYTE (test code = META) 0.9 % 0.0-0.0 H NUCLEATED RED BLOOD CELL (test code = NRBC) 0.9 % POLYCHROMASIA (test code = POLC) 1+ POIKILOCYTOSIS (test code = POIK) 1+ ANISOCYTOSIS (test code = ANISO) 1+ MICROCYTOSIS (test code = MICR) FEW MACROCYTOSIS (test code = MACR) FEW TEAR DROP CELLS (test code = TEAR) 1+ PLATELET ESTIMATE (test code = PLTEST) 44-55 THOUSAND ADEQUATE PLATELET MORPHOLOGY (test code = PLTMORPH) LARGE PLATELETS CBC W/AUTO [id number] 12:06:00* Test Item Value Reference Range Interpretation Comments WHITE BLOOD CELL (test code = WBC) 2.30 x10 3/uL 4.5-11.0 L RED BLOOD CELL (test code = RBC) 2.66 x10 6/uL 3.54-5.02 L HEMOGLOBIN (test code = HGB) 8.5 g/dL 11.0-15.0 L HEMATOCRIT (test code = HCT) 27.6 % 33.0-45.0 L MEAN CELL VOLUME (test code = MCV) 103.8 fL 81.0-99.0 H MEAN CELL HGB (test code = MCH) 32.0 pg 27.0-33.0 N MEAN CELL HGB CONCETRATION (test code = MCHC) 30.8 g/dL 33.0-37. 0 L RED CELL DISTRIBUTION WIDTH CV (test code = RDW) 18.9 % 11.5- 14.5 H RED CELL DISTRIBUTION WIDTH SD (test code = RDW-SD) 70.7 fL 37 .0-54.0 H PLATELET COUNT (test code = PLT) 54 x10 3/uL 150-400 L MEAN PLATELET VOLUME (test code = MPV) 9.9 fL 7.0-9.0 H MANUAL DIFF REQUIRED (test code = MDIFF) YES WBC [id number] 12:06:00* Test Item Value Reference Range Interpretation Comments ANISOCYTOSIS (test code = ANISO) PLATELET ESTIMATE (test code = PLTEST) THOUSAND ADEQUATE CBC W/AUTO [id number] 12:06:00* Test Item Value Reference Range Interpretation Comments WHITE BLOOD CELL (test code = WBC) 2.30 x10 3/uL 4.5-11.0 L RED BLOOD CELL (test code = RBC) 2.66 x10 6/uL 3.54-5.02 L HEMOGLOBIN (test code = HGB) 8.5 g/dL 11.0-15.0 L HEMATOCRIT (test code = HCT) 27.6 % 33.0-45.0 L MEAN CELL VOLUME (test code = MCV) 103.8 fL 81.0-99.0 H MEAN CELL HGB (test code = MCH) 32.0 pg 27.0-33.0 N MEAN CELL HGB CONCETRATION (test code = MCHC) 30.8 g/dL 33.0-37. 0 L RED CELL DISTRIBUTION WIDTH CV (test code = RDW) 18.9 % 11.5- 14.5 H RED CELL DISTRIBUTION WIDTH SD (test code = RDW-SD) 70.7 fL 37 .0-54.0 H PLATELET COUNT (test code = PLT) 54 x10 3/uL 150-400 L MEAN PLATELET VOLUME (test code = MPV) 9.9 fL 7.0-9.0 H MANUAL DIFF REQUIRED (test code = MDIFF) YES WBC [id number] 12:06:00* Test Item Value Reference Range Interpretation Comments ANISOCYTOSIS (test code = ANISO) PLATELET ESTIMATE (test code = PLTEST) THOUSAND ADEQUATE [id number] 08:32:00* Test Item Value Reference Range Interpretation Comments GLUBED (test code = GLUBED) 82 MG/DL 70-110 N Performed by certified vibrating screed operator at [facility] - XR CHEST 1 [id number] 08:28:00 FAX: Kelly Jacob NP [phone] [place]: St: ADM FAX: Callum Choi MD [phone] FAX: Jaspreet Perea MD [phone] Name: TAI GRANT [facility] : 1960 Age/S: 59/F [address] [place] [address] Blvd Unit #: [id number] Loc: G.M320 [place] [address] Phys: Kelly Jacob NP Acct: [id number] Dis Date: Status: ADM IN PH ONE #: [phone] Exam Date: 02/20/2020 0533 FAX #: [phone] Reason: pneumonia EXAMS: CPT CODE: [id number] XR CHEST 1 V [id number] PROCEDURE: [facility] SINGLE VIEW INDICATION: Pneumonia COMPARISON: Mul tiple priors, most recent 02/18/2020 FINDINGS: TUBES AND PAULA ES: Right internal jugular central venous catheter tip at the level of mid SVC. EKG leads overlie the chest. CHEST: Mild hypoventilatory humza nges in the lung bases. No consolidation. No pleural abnormality. Mild pro minence of the cardiomediastinal silhouette likely magnified by projection and low lung volumes without definite change. No gross pulmonary or centr al venous congestion. No acute skeletal abnormality. IMP RESSION: Hypoventilatory changes in the lung bases. No definite pneumoni a. SL: [id number] Electronic ally Signed by Fauzia Fontenot on 02/20/2020 at 0828 Reported and signed by: Fernando menezes M.D. CC: Kelly Jacob NP; Callum Beltre MD; Jaspreet mccain MD Technologist: Faraz Palomo RT(R) Trnscrd Date/Time/By: 02/20/2020 (827) : By: KevenL Orig Print D/T: S: (7868) PAGE 1 Signed Repo rt COMPREHENSIVE METABOLIC [id number] 06:46:00* Test Item Value Reference Range Interpretation Comments SODIUM (test code = NA) 139 mEq/L 134-147 N POTASSIUM (test code = K) 3.9 mEq/L 3.4-5.0 N CHLORIDE (test code = CL) 102 mEq/L 100-108 N CARBON DIOXIDE (test code = CO2) 33 mEq/L 21-33 N ANION GAP (test code = GAP) 8 0-20 N GLUCOSE (test code = GLU) 72 mg/dL 70-110 BLOOD UREA NITROGEN (test code = BUN) 12 mg/dL 7-18 GLOMERULAR FILTRATION RATE (test code = GFR) 14.9 90-95 L Units of measure = ml/min/1.73 m2 CREATININE (test code = CREAT) 3.2 mg/dL 0.6-1.3 H TOTAL PROTEIN (test code = PROT) 5.9 g/dL 6.4-8.2 L ALBUMIN (test code = ALB) 2.00 g/dL 3.4-5.0 L CALCIUM (test code = CA) 8.1 mg/dL 8.0-10.5 N BILIRUBIN TOTAL (test code = BILT) 0.4 MG/DL <1.5 SGOT/AST (test code = AST) 28 IUnit/L 15-37 N SGPT/ALT (test code = ALT) 21 IUnit/L 15-65 N ALKALINE PHOSPHATASE TOTAL (test code = ALKP) 83 IUnit/L 20-125 N [id number] 06:46:00* Test Item Value Reference Range Interpretation Comments PHOSPHOROUS (test code = PHOS) 2.8 MG/DL 2.5-4.9 N [id number] 06:46:00* Test Item Value Reference Range Interpretation Comments MAGNESIUM (test code = MAG) 1.70 mg/dL 1.8-2.4 L CALCIUM [id number] 06:46:00* Test Item Value Reference Range Interpretation Comments CALCIUM IONIZED (test code = LAMONT) 1.17 MMOL/L 1.12-1.32 N PROTHROMBIN [id number] 06:32:00* Test Item Value Reference Range Interpretation Comments PROTHROMBIN TIME PATIENT (test code = PTP) 13.4 SECONDS 9.3-12.9 H INTERNATIONAL NORMAL RATIO (test code = INR) 1.2 0.8-1.2 N TARGET INR BY INDICATION Indication INR1. Prophylaxis of venous thrombosis 2.0 - 3.0 (orthopedic surgery), Prophylaxis of venous thrombosis (other than high-risk surgery), Treatment of Deep Vein Thrombosis/Pulmonary Embolism, Prevention of systemic embolism - Tissue heart valves, Acute Myocardial Infarction (to prevent systemic embolism), Valvular heart disease, Atrial Fibrillation, Bileaflet mechanical valve in aortic position.2. Mechanical prosthetic valves (high risk), 2.5 - 3.5 Presence of Lupus Anticoagulant or Antiphospholipid Antibodies, Prevention of systemic embolism - Acute Myocardial Infarction (to prevent recurrent infarct). COMPREHENSIVE METABOLIC [id number] 06:27:00* Test Item Value Reference Range Interpretation Comments SODIUM (test code = NA) mEq/L 134-147 POTASSIUM (test code = K) mEq/L 3.4-5.0 CHLORIDE (test code = CL) mEq/L 100-108 CARBON DIOXIDE (test code = CO2) mEq/L 21-33 ANION GAP (test code = GAP) 0-20 GLUCOSE (test code = GLU) mg/dL 70-110 BLOOD UREA NITROGEN (test code = BUN) mg/dL 7-18 GLOMERULAR FILTRATION RATE (test code = GFR) 90-95 CREATININE (test code = CREAT) mg/dL 0.6-1.3 TOTAL PROTEIN (test code = PROT) g/dL 6.4-8.2 ALBUMIN (test code = ALB) g/dL 3.4-5.0 CALCIUM (test code = CA) mg/dL 8.0-10.5 BILIRUBIN TOTAL (test code = BILT) MG/DL <1.5 SGOT/AST (test code = AST) IUnit/L 15-37 SGPT/ALT (test code = ALT) IUnit/L 15-65 ALKALINE PHOSPHATASE TOTAL (test code = ALKP) IUnit/L 20-125 [id number] 06:27:00* Test Item Value Reference Range Interpretation Comments PHOSPHOROUS (test code = PHOS) MG/DL 2.5-4.9 [id number] 06:27:00* Test Item Value Reference Range Interpretation Comments MAGNESIUM (test code = MAG) mg/dL 1.8-2.4 CALCIUM [id number] 06:27:00* Test Item Value Reference Range Interpretation Comments CALCIUM IONIZED (test code = LAMONT) 1.17 MMOL/L 1.12-1.32 N CBC W/AUTO [id number] 06:22:00* Test Item Value Reference Range Interpretation Comments WHITE BLOOD CELL (test code = WBC) 2.30 x10 3/uL 4.5-11.0 L RED BLOOD CELL (test code = RBC) 2.66 x10 6/uL 3.54-5.02 L HEMOGLOBIN (test code = HGB) 8.5 g/dL 11.0-15.0 L HEMATOCRIT (test code = HCT) 27.6 % 33.0-45.0 L MEAN CELL VOLUME (test code = MCV) 103.8 fL 81.0-99.0 H MEAN CELL HGB (test code = MCH) 32.0 pg 27.0-33.0 N MEAN CELL HGB CONCETRATION (test code = MCHC) 30.8 g/dL 33.0-37. 0 L RED CELL DISTRIBUTION WIDTH CV (test code = RDW) 18.9 % 11.5- 14.5 H RED CELL DISTRIBUTION WIDTH SD (test code = RDW-SD) 70.7 fL 37 .0-54.0 H PLATELET COUNT (test code = PLT) 54 x10 3/uL 150-400 L MEAN PLATELET VOLUME (test code = MPV) 9.9 fL 7.0-9.0 H NEUTROPHIL % (test code = NT%) % 56.0-77.0 LYMPHOCYTE % (test code = LY%) % 14.0-32.0 NEUTROPHIL # (test code = NT#) x10 3/uL 2.0-7.6 LYMPHOCYTE # (test code = LY#) x10 3/uL 1.0-3.8 MANUAL DIFF REQUIRED (test code = MDIFF) HGB [id number] 21:37:00* Test Item Value Reference Range Interpretation Comments HEMOGLOBIN (test code = HGB) 8.9 g/dL 11.0-15.0 L HEMATOCRIT (test code = HCT) 28.3 % 33.0-45.0 L [id number] 20:27:00* Test Item Value Reference Range Interpretation Comments GLUBED (test code = GLUBED) 142 MG/DL 70-110 H Performed by certified vibrating screed operator at [facility] [id number] 17:47:00* Test Item Value Reference Range Interpretation Comments GLUBED (test code = GLUBED) 145 MG/DL 70-110 H Performed by certified vibrating screed operator at [facility] [id number] 11:46:00* Test Item Value Reference Range Interpretation Comments GLUBED (test code = GLUBED) 116 MG/DL 70-110 H Performed by certified vibrating screed operator at [facility] CBC W/AUTO [id number] 06:22:00* Test Item Value Reference Range Interpretation Comments WHITE BLOOD CELL (test code = WBC) 1.84 x10 3/uL 4.5-11.0 L RED BLOOD CELL (test code = RBC) 2.07 x10 6/uL 3.54-5.02 L HEMOGLOBIN (test code = HGB) 6.7 g/dL 11.0-15.0 L HEMATOCRIT (test code = HCT) 22.0 % 33.0-45.0 L MEAN CELL VOLUME (test code = MCV) 106.3 fL 81.0-99.0 H MEAN CELL HGB (test code = MCH) 32.4 pg 27.0-33.0 N MEAN CELL HGB CONCETRATION (test code = MCHC) 30.5 g/dL 33.0-37. 0 L RED CELL DISTRIBUTION WIDTH CV (test code = RDW) 19.1 % 11.5- 14.5 H RED CELL DISTRIBUTION WIDTH SD (test code = RDW-SD) 73.7 fL 37 .0-54.0 H PLATELET COUNT (test code = PLT) 39 x10 3/uL 150-400 L MEAN PLATELET VOLUME (test code = MPV) 9.7 fL 7.0-9.0 H MANUAL DIFF REQUIRED (test code = MDIFF) YES WBC [id number] 06:22:00* Test Item Value Reference Range Interpretation Comments SEGMENTED NEUTROPHILS (test code = SEG) 78.2 % 37-69 H LYMPHOCYTE (test code = LYMPH) 8.2 % 23-55 L MONOCYTE (test code = MON) 10.0 % 0-10 N EOSINOPHIL (test code = EOS) 1.8 % 0.0-4.0 N MYELOCYTE (test code = MYELO) 1.8 % 0.0-0.0 H POIKILOCYTOSIS (test code = POIK) SLIGHT BASOPHILIC STIPPLING (test code = STP) FEW ANISOCYTOSIS (test code = ANISO) 2+ MICROCYTOSIS (test code = MICR) 1+ MACROCYTOSIS (test code = MACR) 1+ TEAR DROP CELLS (test code = TEAR) FEW PLATELET ESTIMATE (test code = PLTEST) 40-50 THOUSAND ADEQUATE PLATELET MORPHOLOGY (test code = PLTMORPH) NORMAL LARGE PLTS SEEN BASIC METABOLIC [id number] 06:21:00* Test Item Value Reference Range Interpretation Comments SODIUM (test code = NA) 140 mEq/L 134-147 N POTASSIUM (test code = K) 4.2 mEq/L 3.4-5.0 N CHLORIDE (test code = CL) 102 mEq/L 100-108 N CARBON DIOXIDE (test code = CO2) 32 mEq/L 21-33 N ANION GAP (test code = GAP) 10 0-20 N GLUCOSE (test code = GLU) 133 mg/dL 70-110 H BLOOD UREA NITROGEN (test code = BUN) 20 mg/dL 7-18 H GLOMERULAR FILTRATION RATE (test code = GFR) 10.1 90-95 L Units of measure = ml/min/1.73 m2 CREATININE (test code = CREAT) 4.5 mg/dL 0.6-1.3 H CALCIUM (test code = CA) 8.0 mg/dL 8.0-10.5 N [id number] 06:21:00* Test Item Value Reference Range Interpretation Comments PHOSPHOROUS (test code = PHOS) 3.2 MG/DL 2.5-4.9 N [id number] 06:21:00* Test Item Value Reference Range Interpretation Comments MAGNESIUM (test code = MAG) 2.00 mg/dL 1.8-2.4 N CALCIUM [id number] 06:21:00* Test Item Value Reference Range Interpretation Comments CALCIUM IONIZED (test code = LAMONT) 1.21 MMOL/L 1.12-1.32 N CBC W/AUTO [id number] 06:18:00* Test Item Value Reference Range Interpretation Comments WHITE BLOOD CELL (test code = WBC) 1.84 x10 3/uL 4.5-11.0 L RED BLOOD CELL (test code = RBC) 2.07 x10 6/uL 3.54-5.02 L HEMOGLOBIN (test code = HGB) 6.7 g/dL 11.0-15.0 L HEMATOCRIT (test code = HCT) 22.0 % 33.0-45.0 L MEAN CELL VOLUME (test code = MCV) 106.3 fL 81.0-99.0 H MEAN CELL HGB (test code = MCH) 32.4 pg 27.0-33.0 N MEAN CELL HGB CONCETRATION (test code = MCHC) 30.5 g/dL 33.0-37. 0 L RED CELL DISTRIBUTION WIDTH CV (test code = RDW) 19.1 % 11.5- 14.5 H RED CELL DISTRIBUTION WIDTH SD (test code = RDW-SD) 73.7 fL 37 .0-54.0 H PLATELET COUNT (test code = PLT) 39 x10 3/uL 150-400 L MEAN PLATELET VOLUME (test code = MPV) 9.7 fL 7.0-9.0 H MANUAL DIFF REQUIRED (test code = MDIFF) YES WBC [id number] 06:18:00* Test Item Value Reference Range Interpretation Comments ANISOCYTOSIS (test code = ANISO) PLATELET ESTIMATE (test code = PLTEST) THOUSAND ADEQUATE CBC W/AUTO [id number] 06:18:00* Test Item Value Reference Range Interpretation Comments WHITE BLOOD CELL (test code = WBC) 1.84 x10 3/uL 4.5-11.0 L RED BLOOD CELL (test code = RBC) 2.07 x10 6/uL 3.54-5.02 L HEMOGLOBIN (test code = HGB) 6.7 g/dL 11.0-15.0 L HEMATOCRIT (test code = HCT) 22.0 % 33.0-45.0 L MEAN CELL VOLUME (test code = MCV) 106.3 fL 81.0-99.0 H MEAN CELL HGB (test code = MCH) 32.4 pg 27.0-33.0 N MEAN CELL HGB CONCETRATION (test code = MCHC) 30.5 g/dL 33.0-37. 0 L RED CELL DISTRIBUTION WIDTH CV (test code = RDW) 19.1 % 11.5- 14.5 H RED CELL DISTRIBUTION WIDTH SD (test code = RDW-SD) 73.7 fL 37 .0-54.0 H PLATELET COUNT (test code = PLT) 39 x10 3/uL 150-400 L MEAN PLATELET VOLUME (test code = MPV) 9.7 fL 7.0-9.0 H MANUAL DIFF REQUIRED (test code = MDIFF) YES WBC [id number] 06:18:00* Test Item Value Reference Range Interpretation Comments ANISOCYTOSIS (test code = ANISO) PLATELET ESTIMATE (test code = PLTEST) THOUSAND ADEQUATE BASIC METABOLIC [id number] 06:08:00* Test Item Value Reference Range Interpretation Comments SODIUM (test code = NA) mEq/L 134-147 POTASSIUM (test code = K) mEq/L 3.4-5.0 CHLORIDE (test code = CL) mEq/L 100-108 CARBON DIOXIDE (test code = CO2) mEq/L 21-33 ANION GAP (test code = GAP) 0-20 GLUCOSE (test code = GLU) mg/dL 70-110 BLOOD UREA NITROGEN (test code = BUN) mg/dL 7-18 GLOMERULAR FILTRATION RATE (test code = GFR) 90-95 CREATININE (test code = CREAT) mg/dL 0.6-1.3 CALCIUM (test code = CA) mg/dL 8.0-10.5 [id number] 06:08:00* Test Item Value Reference Range Interpretation Comments PHOSPHOROUS (test code = PHOS) MG/DL 2.5-4.9 [id number] 06:08:00* Test Item Value Reference Range Interpretation Comments MAGNESIUM (test code = MAG) mg/dL 1.8-2.4 CALCIUM [id number] 06:08:00* Test Item Value Reference Range Interpretation Comments CALCIUM IONIZED (test code = LAMONT) 1.21 MMOL/L 1.12-1.32 N CBC W/AUTO [id number] 06:01:00* Test Item Value Reference Range Interpretation Comments WHITE BLOOD CELL (test code = WBC) 1.84 x10 3/uL 4.5-11.0 L RED BLOOD CELL (test code = RBC) 2.07 x10 6/uL 3.54-5.02 L HEMOGLOBIN (test code = HGB) 6.7 g/dL 11.0-15.0 L HEMATOCRIT (test code = HCT) 22.0 % 33.0-45.0 L MEAN CELL VOLUME (test code = MCV) 106.3 fL 81.0-99.0 H MEAN CELL HGB (test code = MCH) 32.4 pg 27.0-33.0 N MEAN CELL HGB CONCETRATION (test code = MCHC) 30.5 g/dL 33.0-37. 0 L RED CELL DISTRIBUTION WIDTH CV (test code = RDW) 19.1 % 11.5- 14.5 H RED CELL DISTRIBUTION WIDTH SD (test code = RDW-SD) 73.7 fL 37 .0-54.0 H PLATELET COUNT (test code = PLT) 39 x10 3/uL 150-400 L MEAN PLATELET VOLUME (test code = MPV) 9.7 fL 7.0-9.0 H NEUTROPHIL % (test code = NT%) % 56.0-77.0 LYMPHOCYTE % (test code = LY%) % 14.0-32.0 NEUTROPHIL # (test code = NT#) x10 3/uL 2.0-7.6 LYMPHOCYTE # (test code = LY#) x10 3/uL 1.0-3.8 MANUAL DIFF REQUIRED (test code = MDIFF) [id number] 05:36:00* Test Item Value Reference Range Interpretation Comments GLUBED (test code = GLUBED) 151 MG/DL 70-110 H Performed by certified vibrating screed operator at [facility] [id number] 23:39:00* Test Item Value Reference Range Interpretation Comments GLUBED (test code = GLUBED) 78 MG/DL 70-110 N Performed by certified vibrating screed operator at [facility] [id number] 16:54:00* Test Item Value Reference Range Interpretation Comments GLUBED (test code = GLUBED) 101 MG/DL 70-110 N Performed by certified vibrating screed operator at [facility] Novel Coronavirus 16:04:00* Test Item Value Reference Range Interpretation Comments Novel Coronavirus 2019 Inhouse (test code = [id number]) Negative Negative Positive results are indicative of the presence muDGUY-[id number]-0 RNA, clinical correlation with patient historyand other diagnostic information is necessary to determinepatient infection status. Positive results do not rule outbacterial infection or co-infection with other viruses. Negative results do not preclude SARS-CoV-2 infection andshould not be used as the sole basis for patient managementdecisions. Negative results must be combined with otherclinical observations, patient history, and epidemiologicalinformation. Detection of SARS-CoV-2 RNA may be affected bysample collection methods, storage conditions, and/or stageof infection. Viral RNA mutations, vaccinations, antiviraltherapeutics, antibiotics, chemotherapeutic orimmunosuppressant drugs have not been evaluated for effectson detection. Results are for the identification of SARS-CoV-2 RNA usingthe [employer] M2000 System under the FDA Emergency UseAuthorization. The testing is performed by personneltrained in the procedures for the [employer] M2000 moleculardiagnostic SARS-CoV-2 assay in vitro. Testing Criteria: [id number] 11:59:00* Test Item Value Reference Range Interpretation Comments GLUBED (test code = GLUBED) 80 MG/DL 70-110 N Performed by certified vibrating screed operator at [facility] CBC W/AUTO [id number] 08:09:00* Test Item Value Reference Range Interpretation Comments WHITE BLOOD CELL (test code = WBC) 3.14 x10 3/uL 4.5-11.0 L RED BLOOD CELL (test code = RBC) 2.51 x10 6/uL 3.54-5.02 L HEMOGLOBIN (test code = HGB) 8.1 g/dL 11.0-15.0 L HEMATOCRIT (test code = HCT) 26.5 % 33.0-45.0 L MEAN CELL VOLUME (test code = MCV) 105.6 fL 81.0-99.0 H MEAN CELL HGB (test code = MCH) 32.3 pg 27.0-33.0 N MEAN CELL HGB CONCETRATION (test code = MCHC) 30.6 g/dL 33.0-37. 0 L RED CELL DISTRIBUTION WIDTH CV (test code = RDW) 19.0 % 11.5- 14.5 H RED CELL DISTRIBUTION WIDTH SD (test code = RDW-SD) 71.7 fL 37 .0-54.0 H PLATELET COUNT (test code = PLT) 58 x10 3/uL 150-400 L MEAN PLATELET VOLUME (test code = MPV) 9.3 fL 7.0-9.0 H NEUTROPHIL % (test code = NT%) 75.5 % 56.0-77.0 N IMMATURE GRANULOCYTE % (test code = IG%) 0.6 % 0.0-2.0 N LYMPHOCYTE % (test code = LY%) 8.3 % 14.0-32.0 L MONOCYTE % (test code = MO%) 15.0 % 4.8-9.0 H EOSINOPHIL % (test code = EO%) 0.3 % 0.3-3.7 N BASOPHIL % (test code = BA%) 0.3 % 0.0-2.0 N NUCLEATED RBC % (test code = NRBC%) 0.0 % 0-0 N NEUTROPHIL # (test code = NT#) 2.37 x10 3/uL 2.0-7.6 N IMMATURE GRANULOCYTE # (test code = IG#) 0.02 x10 3/uL 0.00-0.03 N LYMPHOCYTE # (test code = LY#) 0.26 x10 3/uL 1.0-3.8 L MONOCYTE # (test code = MO#) 0.47 x10 3/uL 0.1-0.8 N EOSINOPHIL # (test code = EO#) 0.01 x10 3/uL 0.0-0.2 N BASOPHIL # (test code = BA#) 0.01 x10 3/uL 0.0-0.2 N NUCLEATED RBC # (test code = NRBC#) 0.00 x10 3/uL 0.0-0.1 N MANUAL DIFF REQUIRED (test code = MDIFF) NO BASIC METABOLIC [id number] 07:00:00* Test Item Value Reference Range Interpretation Comments SODIUM (test code = NA) 138 mEq/L 134-147 N POTASSIUM (test code = K) 5.1 mEq/L 3.4-5.0 H CHLORIDE (test code = CL) 99 mEq/L 100-108 L CARBON DIOXIDE (test code = CO2) 29 mEq/L 21-33 N ANION GAP (test code = GAP) 15 0-20 N GLUCOSE (test code = GLU) 120 mg/dL 70-110 H BLOOD UREA NITROGEN (test code = BUN) 22 mg/dL 7-18 H GLOMERULAR FILTRATION RATE (test code = GFR) 8.5 90-95 L Units of measure = ml/min/1.73 m2 CREATININE (test code = CREAT) 5.2 mg/dL 0.6-1.3 H CALCIUM (test code = CA) 8.2 mg/dL 8.0-10.5 N [id number] 07:00:00* Test Item Value Reference Range Interpretation Comments PHOSPHOROUS (test code = PHOS) 3.0 MG/DL 2.5-4.9 N [id number] 07:00:00* Test Item Value Reference Range Interpretation Comments MAGNESIUM (test code = MAG) 1.90 mg/dL 1.8-2.4 N [id number] 07:00:00* Test Item Value Reference Range Interpretation Comments TROPONIN-I (test code = TROPI) < 0.015 ng/mL 0.000-0.045 N Negative: <= 0.045 Positive: >= 0.046 Correlation with serial results, other cardiac markers andclinical findings is necessary to determine the clinicalsignificance of this result. Results using different methodologies should not be comparedto one another as quantitative results may vary by method. LACTIC ACID 2ND [id number] 06:48:00* Test Item Value Reference Range Interpretation Comments LACTIC ACID 2ND REPEAT (test code = LACT2) 3.9 mmol/L 0.4-1.9 H [id number] 06:26:00* Test Item Value Reference Range Interpretation Comments GLUBED (test code = GLUBED) 124 MG/DL 70-110 H Performed by certified vibrating screed operator at [facility] [id number] 05:02:00* Test Item Value Reference Range Interpretation Comments TROPONIN-I (test code = TROPI) < 0.015 ng/mL 0.000-0.045 N Negative: <= 0.045 Positive: >= 0.046 Correlation with serial results, other cardiac markers andclinical findings is necessary to determine the clinicalsignificance of this result. Results using different methodologies should not be comparedto one another as quantitative results may vary by method. COMMENTS: 3 troponins total (including troponin done in ED)- XR CHEST 1 V 2020-02-18 04:00:00 FAX: Callum Choi MD [phone] [place]: St: ADM FAX: Gregory Tinoco MD [phone] FAX: Jaspreet Perea MD [phone] Name: TAI GRANT [facility] : 1960 Age/S: 59/F [address] [place] [address] Unit #: [id number] Loc: [place] [address] Phys: Gregory Thurston MD Acct: [id number] Dis Date: Status: ADM IN ONE #: [phone] Exam Date: 02/18/2020 0332 FAX #: [phone] Reason: AFTER RIGHT IJ CVL EXAMS: CPT CODE: [id number] XR CHEST 1 V [id number] EXAM: CR, XR chest one view: 02/18/2020, 0322 hours HISTORY: AFTER RIGHT IJ CVL TECHNIQUE: 1 view of the chest. COMPARISON: 02/18/20 20, 0127 hours FINDINGS: Interval placement of right IJ jacob ous catheter, tip and spear vena cava. Trachea is midline. Cardiome diastinal silhouette is stable. Pulmonary vascularity is unremarkable. Low volume lungs with vascular crowding in the lower lobes. Mild basi lar atelectasis. There is no airspace consolidation, pleural effusion or p neumothorax. Osseous structures are stable. IMPRESSION: 1. Low lung volumes with vascular crowding and mild bibasilar ate lectasis. 2. Interval placement of right IJ venous catheter, tip in sup erior vena cava. SL: [JSYED-H] E lectronically Signed by Fauzia Hughes on 02/18/2020 at 0400 Reported and signed by: German Hughes M.D. CC: Callum Beltre MD; Gregory Thurston MD; Jaspreet Jerez MD Technologist: RT [employer]) Trnscrd Date/Time/By: 02/18/2020 (399) : By: [email or web address] Orig Print D/T: S: 02/18/2020 (5737) PAGE 1 Signed Report LACTIC ACID [id number] 03:54:00* Test Item Value Reference Range Interpretation Comments LACTIC ACID REPEAT (test code = LACTR) 4.2 mmol/l 0.4-1.9 HH - CT CHEST W/O [id number] 02:56:00 Name: TAI GRANT [facility] : 1960 Age/S: 59 / F [address] [place] [address] Unit #: [id number] Loc: [place] [address] Phys: Gregory Thurston MD Acct: [id number] Dis Date: Status: ADM IN PHONE #: [phone] Exam Date: 02/18/2020234 FAX #: [phone] Reason: acute sepsis, altered mental status EXAMS: CPT CODE: [id number] CT CHEST W/O CONTRAST [id number] EXAM: CT, CT CHEST W/O CONTRAST: 02/18/2020, 0050 hours EXAM: CT, CT ABDOMEN AND PELVIS W/O CONTRAST: 02/18/2020, 0050 Clinical Indication: Acute sepsis. Fever. Altered mental status. Comparison: Abdominal ultrasound for 2019. CT chest 10/30/2019 CT abdomen pelvis 02/07/2016 TECHNIQUE: Sequential trans-axial images were obtained thru the chest, abdomen and pelvis without iodinated oral or IV contrast. Coronal and sagittal reconstructions were obtained. CT imaging was performed with exposure control parameters to reduce radiation dose. All CT scans at this location are performed using dose optimization techniques as appropriate to perform exam including the following: * Automated exposure control * Adjustment of the mA and /or kV according to patient size (this includes techniques or standardized protocols for targeted exams where dose is matched to indication/reason for exam; extremities or head) * Use of iterative reconstruction technique DLP: 815 mGy-cm FINDINGS: CT CHEST WITHOUT: LUNG PARENCHYMA AND PLEURA: Mild hazy opacity in the right perihilar lung, most likely scar. Patchy opacity in the left lower lobe may represent atelectasis or developing pneumonia. Linear opacity in the left upper lobe, probably subsegmental atelectasis. There are no pleural effusions. There is no pneumothorax. AIRWAYS: The central airway is unremarkable. Trachea is midline. NON-CONTRAST MEDIASTINUM: Heart is normal in size. Significant coronary arterial calcification is seen. No pericardial effusion identified. Thoracic aorta is normal in ca liber. Calcified plaques in thoracic aorta is noted. There is no bulky a denopathy. OSSEOUS STRUCTURES: No acute abnormality seen. VISUALIZED NON-CONTRAST LOWER NECK: No gross abnormalities. CT ABDOMEN PELVIS WITHOUT: NON-CONTRAST ENHANCED SOLID ORGANS: PAGE 1 Signed Report (CONTINUED) N jim: TAI GRANT [facility] : 0 1960 Age/S: 59 / F [address] [place], [place] [address]vd Unit #: [id number] Loc: [place] [address] Phys: David Thurston MD Acct: [id number] Dis D ate: Status: ADM IN PHONE #: Exam Date: 02/18/20205 FAX #: [phone] Reason: acute sepsis, altered mental status EXAMS: CPT CODE: [id number] CT CHEST W/O CON TRAST 30842 <Continued> LIVER: Enlarged, measures 19.4 cm cephalic caudally. GALLBLADDER: Cholecystectomy. INTRAHEPATIC BILE DUCT AND EXTRAHEPATIC BILE DUCT: Unrema rkable. PANCREAS: Unremarkable. SPLEEN: Calcified granuloma seen in spleen. Spleen is enlarged. Spleen measures 19.4 cm cephalic caudally. ADRENALS: Unremarkable. KIDNEYS: Small and atrophied kidneys. Again identified are multiple clips in the vicinity of the right renal p connie with significant associated artifact. No renal hydronephrosis seen. Punctate nonobstructing stone in the left kidney seen. NON- CONTRAST OPACIFIED STOMACH AND BOWEL: STOMACH: Postsurgical changes of ga stric bypass.. BOWEL: The small bowel loops in the abdomen and pelvis appe ar unremarkable. Moderate fecal material in the colon. APPENDIX: No t well seen on the exam. PERITONEUM AND RETROPERITONEUM: No ascite s or free air. No other fluid collection.There is no aortic aneurysm seen on the non-contrast exam. Calcified plaques are seen in the abdominal aor ta, iliac arteries and the splenic artery LYMPH NODES: Unrem arkable. PELVIS: No pelvic mass or adenopathy. Uterus is antevert ed and unremarkable. Ovaries are not visualized. BLADDER: Nondisten ded. OSSEOUS STRUCTURES: No acute abnormality seen. SOFT TISSUES: Muscle wasting. IMPRESSION: 1. P atchy opacity in the left lower lobe may represent atelectasis or pneumo kaitlyn. Mild scar in the right perihilar lung. Mild subsegmental atelecta sis left upper lobe. 2. Significant coronary arterial calcification. 3. Hepatosplenomegaly. 4. Small and atrophied kidneys punctate n onobstructing stone in the kidneys. Cortical thinning bilaterally witho ut hydronephrosis. PAGE 2 Signed Report (CONTINUED) Name: TAI GRANT [facility] : 1960 Age/S: 59 / F [address] [place], [place] [address]vd Unit #: [id number] Loc: [place] [address] Phys: Gregory Thurston MD Acct: [id number] Dis Date: Status: ADM IN PHONE #: [phone] Exam Date: 02/18/2020 0235 FAX #: [phone] Reason: acute sepsis, altered mental status EXAMS: CPT CODE: [id number] CT CHEST W/O CONTRAST 84710 < Continued> SL: JSYED-H at 0256 Reported and signed by: German Hughes M.D. CC: Gregory Thurston MD; Jaspreet Jerez MD Technologist:Arthur Bright, RT(R)(CT)(MR) CTDI: DLP: Trnscb Date/Time: 02/18/2020 (255) [email or web address] Orig Print D/T: S: 02/18/2020 (258) PAGE 3 Signed Report - CT ABD PELVIS W/O [id number] 02:56:00 Name: TAI GRANTSADE [facility] : 1960 Age/S: 59 / F [address] [place], [place] [address] Unit #: [id number] Loc: [place] [address] Phys: Gregory Thurston MD Acct: [id number] Dis Date: Status: ADM IN PHONE #: [phone] Exam Date: 02/18/2020234 FAX #: [phone] Reason: acute sepsis, altered mental status EXAMS: CPT CODE: [id number] CT ABD PELVIS W/O CONT 06887 EXAM: CT, CT CHEST W/O CONTRAST: 02/18/2020, 0050 hours EXAM: CT, CT ABDOMEN AND PELVIS W/O CONTRAST: 02/18/2020, 0050 Clinical Indication: Acute sepsis. Fever. Altered mental status. Comparison: Abdominal ultrasound for 2019. CT chest 10/30/2019 CT abdomen pelvis 02/07/2016 TECHNIQUE: Sequential trans-axial images were obtained thru the chest, abdomen and pelvis without iodinated oral or IV contrast. Coronal and sagittal reconstructions were obtained. CT imaging was performed with exposure control parameters to reduce radiation dose. All CT scans at this location are performed using dose optimization techniques as appropriate to perform exam including the following: * Automated exposure control * Adjustment of the mA and /or kV according to patient size (this includes techniques or standardized protocols for targeted exams where dose is matched to indication/reason for exam; extremities or head) * Use of iterative reconstruction technique DLP: 815 mGy-cm FINDINGS: CT CHEST WITHOUT: LUNG PARENCHYMA AND PLEURA: Mild hazy opacity in the right perihilar lung, most likely scar. Patchy opacity in the left lower lobe may represent atelectasis or developing pneumonia. Linear opacity in the left upper lobe, probably subsegmental atelectasis. There are no pleural effusions. There is no pneumothorax. AIRWAYS: The central airway is unremarkable. Trachea is midline. NON-CONTRAST MEDIASTINUM: Heart is normal in size. Significant coronary arterial calcification is seen. No pericardial effusion identified. Thoracic aorta is normal in ca liber. Calcified plaques in thoracic aorta is noted. There is no bulky a denopathy. OSSEOUS STRUCTURES: No acute abnormality seen. VISUALIZED NON-CONTRAST LOWER NECK: No gross abnormalities. CT ABDOMEN PELVIS WITHOUT: NON-CONTRAST ENHANCED SOLID ORGANS: PAGE 1 Signed Report (CONTINUED) N jim: TAI GRANT [facility] : 0 1960 Age/S: 59 / F [address] [place] [address] Blvd Unit #: [id number] Loc: [place] [address] Phys: David Thurston MD Acct: [id number] Dis D ate: Status: ADM IN PHONE #: [phone] Exam Date: 02/18/2020234 FAX #: [phone] Reason: acute sepsis, altered mental status EXAMS: CPT CODE: [id number] CT ABD PELVIS W/O CONT 64744 <Continued> LIVER: Enlarged, measures 19.4 cm cephalic caudally. GALLBLADDER: Cholecystectomy. INTRAHEPATIC BILE DUCT AND EXTRAHEPATIC BILE DUCT: Unremarkable. PANCREAS: Unremarkable. SPLEEN: Calcified granuloma seen in spleen. Spleen is enlarged. Spleen measures 19.4 cm cephalic caudally. ADRENALS: Unremarkable. KIDNEYS: Small and atrophied kidneys. Again identified are multiple clips in the vicinity of the right renal pelvis with significant associated artifact. No renal hydronephrosis seen. Punctate nonobstructing stone in the left kidney seen. NON- CONTRAST OPACIFIED STOMACH AND BOWEL: STOMACH: Postsurgical changes of ga stric bypass.. BOWEL: The small bowel loops in the abdomen and pelvis appe ar unremarkable. Moderate fecal material in the colon. APPENDIX: No t well seen on the exam. PERITONEUM AND RETROPERITONEUM: No ascite s or free air. No other fluid collection.There is no aortic aneurysm seen on the non-contrast exam. Calcified plaques are seen in the abdominal aor ta, iliac arteries and the splenic artery LYMPH NODES: Unrem arkable. PELVIS: No pelvic mass or adenopathy. Uterus is antevert ed and unremarkable. Ovaries are not visualized. BLADDER: Nondisten ded. OSSEOUS STRUCTURES: No acute abnormality seen. SOFT TISSUES: Muscle wasting. IMPRESSION: 1. P atchy opacity in the left lower lobe may represent atelectasis or pneumo kaitlyn. Mild scar in the right perihilar lung. Mild subsegmental atelecta sis left upper lobe. 2. Significant coronary arterial calcification. 3. Hepatosplenomegaly. 4. Small and atrophied kidneys punctate n onobstructing stone in the kidneys. Cortical thinning bilaterally witho ut hydronephrosis. PAGE 2 Signed Report (CONTINUED) Name: TAI GRANT [facility] : 1960 Age/S: 59 / F [address] [facility] Unit #: [id number] Loc: [place] [address] Phys: Gregory Thurston MD Acct: [id number] Dis Date: Status: ADM IN PHONE #: [phone] Exam Date: 02/18/2020234 FAX #: [phone] Reason: acute sepsis, altered mental status EXAMS: CPT CODE: [id number] CT ABD PELVIS W/O CONT 70310 < Continued> SL: FANY at 0256 Reported and signed by: German Hughes M.D. CC: Gregory Thurston MD; Jaspreet Jerez MD Technologist:RT Samina(R)(CT)(MR) CTDI: DLP: Trnscb Date/Time: 02/18/2020 (255) [email or web address] Orig Print D/T: S: 02/18/2020 (258) PAGE 3 Signed Report PROCALCITONIN (PCT)2020-02-18 02:46:00* Test Item Value Reference Range Interpretation Comments PROCALCITONIN (PCT) (test code = PROCAL) 7.48 ng/mL 0.00-0.05 H PROCALCITONIN (PCT) NORMAL RANGE (ADULT): <0.05 NG/ML. * a concentration <0.5 ng/mL represents a low risk of severe sepsis and/or septic shock.* a concentration >2 ng/mL represents a high risk of severe sepsis and/or septic shock.Nevertheless, concentrations <0.5 ng/mL do not exclude aninfection, on account of localized infections (withoutsystemic signs) which can be associated with such lowconcentrations, or a systemic infection in its initialstages (< 6 hours). Furthermore, increased procalcitonincan occur without infection. PCT concentrations between 0.5and 2.0 ng/mL should be interpreted taking into account thepatient's history. It is recommended to retest PCT within6-24 hours if any concentrations <2 ng/mL are obtained. - CT HEAD/BRAIN W/O [id number] 02:34:00 Name: TAI GRANT [facility] : 1960 Age/S: 59 / F [address] [place] [address] Blvd Unit #: [id number] Loc: [place] [address] Phys: Gregory Thurston MD Acct: [id number] Dis Date: Status: REG ER PHONE #: [phone] Exam Date: 02/18/2020 023 FAX #: [phone] Reason: acute sepsis, altered mental status EXAMS: CPT CODE: [id number] CT HEAD/BRAIN W/O CONT 59773 EXAM: CT, CT HEAD/BRAIN W/O CONTRAST: 02/18/2020, 0209 hours HISTORY: acute sepsis, altered mental status COMPARISON: 01/17/2019 None available. TECHNIQUE: CT images were obtained from the foramen magnum to the vertex without the use of intravenous contrast on a multidetector CT. CT imaging was performed with exposure control parameters to reduce radiation dose. Coronal and sagittal reconstructions were obtained. CT radiation dose DLP: 429.66 mGy-cm FINDINGS: Beam hardening artifact limits the optimal evaluation of base of brain and posterior fossa. BRAIN PARENCHYMA: Mild generalized brain atrophy seen. Mild nonspecific low- attenuation in the periventricular white matter, most likely due to chronic small vessel ischemic changes No focal mass lesions on this non contrast head CT. No mass effect, midline shift or edema. There are no i ntra-axial or extra-axial fluid collections, intraventricular or intrapare nchymal hemorrhage. No low attenuation demarcating areas on this non-contr ast CT to suggest subacute stroke. VENTRICLES: The lateral ventri cles, third and fourth ventricles appear unremarkable. The basilar cistern s are normal. ORBITS, MASTOIDS AND PARANASAL SINUSES: The visuali zed orbits are unremarkable. Bilateral ethmoid sinus mucosal thickening Th e mastoid air cells are clear. SKULL: There are no osseous abnormalities. If there is further concern for intracrania l pathology or acute stroke, MRI of the brain may be performed for complet e assessment. IMPRESSION: 1. No acute intracra nial abnormality. No noncontrast CT evidence of mass, acute hemorrhage o r subacute stroke. 2. Bilateral ethmoid sinus mucosal thickening. 3. Mild generalized atrophy. Mild chronic small vessel ischemic humza nges. PAGE 1 Signed Report (CONTIN UED) Name: TAI GRANT [facility] : 1960 Age/S: 59 / F [address] [place] [address] Unit #: [id number] Loc: [place] [address] Phys: Gregory Almaraz MD Acct: [id number] Dis Date: Status: REG ER PHONE #: [phone] Exam Date: 02/18/2020234 FAX #: [phone] Reason: acute sepsis, altered mental status EXAMS: CPT CODE: [id number] CT HEAD/ BRAIN W/O CONT 39649 <Continued> SL: JSYED-H at 0234 Reported and signed by: German Hughes M.D. CC: Gregory Thurston MD; Jaspreet Jerez MD Technologist:RT Samina(R)(CT)(MR) CTDI: DLP: Trnscb Date/Time: 02/18/2020 (233) [email or web address] Orig Print D/T: S: 02/18/2020 (023) PAGE 2 Signed Report CBC W/AUTO [id number] 02:20:00* Test Item Value Reference Range Interpretation Comments WHITE BLOOD CELL (test code = WBC) 2.40 x10 3/uL 4.5-11.0 L RED BLOOD CELL (test code = RBC) 2.95 x10 6/uL 3.54-5.02 L HEMOGLOBIN (test code = HGB) 9.6 g/dL 11.0-15.0 L HEMATOCRIT (test code = HCT) 30.9 % 33.0-45.0 L MEAN CELL VOLUME (test code = MCV) 104.7 fL 81.0-99.0 H MEAN CELL HGB (test code = MCH) 32.5 pg 27.0-33.0 N MEAN CELL HGB CONCETRATION (test code = MCHC) 31.1 g/dL 33.0-37. 0 L RED CELL DISTRIBUTION WIDTH CV (test code = RDW) 18.9 % 11.5- 14.5 H RED CELL DISTRIBUTION WIDTH SD (test code = RDW-SD) 69.9 fL 37 .0-54.0 H PLATELET COUNT (test code = PLT) 56 x10 3/uL 150-400 L IMMATURE PLATELET FRACTION (test code = IPF) 2.5 % 0.9-11.2 N MEAN PLATELET VOLUME (test code = MPV) 11.2 fL 7.0-9.0 H NEUTROPHIL % (test code = NT%) 77.4 % 56.0-77.0 H IMMATURE GRANULOCYTE % (test code = IG%) 0.8 % 0.0-2.0 N LYMPHOCYTE % (test code = LY%) 6.7 % 14.0-32.0 L MONOCYTE % (test code = MO%) 13.8 % 4.8-9.0 H EOSINOPHIL % (test code = EO%) 1.3 % 0.3-3.7 N BASOPHIL % (test code = BA%) 0.0 % 0.0-2.0 N NUCLEATED RBC % (test code = NRBC%) 0.8 % 0-0 H NEUTROPHIL # (test code = NT#) 1.86 x10 3/uL 2.0-7.6 L IMMATURE GRANULOCYTE # (test code = IG#) 0.02 x10 3/uL 0.00-0.03 N LYMPHOCYTE # (test code = LY#) 0.16 x10 3/uL 1.0-3.8 L MONOCYTE # (test code = MO#) 0.33 x10 3/uL 0.1-0.8 N EOSINOPHIL # (test code = EO#) 0.03 x10 3/uL 0.0-0.2 N BASOPHIL # (test code = BA#) 0.00 x10 3/uL 0.0-0.2 N NUCLEATED RBC # (test code = NRBC#) 0.02 x10 3/uL 0.0-0.1 N MANUAL DIFF REQUIRED (test code = MDIFF) NO PLT [id number] 02:20:00* Test Item Value Reference Range Interpretation Comments PLATELET ESTIMATE (test code = PLTEST) 56-70 THOUSAND ADEQUATE PLATELET MORPHOLOGY (test code = PLTMORPH) NORMAL URINALYSIS [id number] 02:15:00* Test Item Value Reference Range Interpretation Comments UA COLOR (test code = COLU) DARK YELLOW YEL/STRAW UA APPEARANCE (test code = APPU) TURBID CLEAR A UA GLUCOSE DIPSTICK (test code = DGLUU) NEGATIVE NEGATIVE UA BILIRUBIN DIPSTICK (test code = BILU) NEGATIVE NEGATIVE UA KETONE DIPSTICK (test code = KETU) NEGATIVE NEGATIVE UA SPECIFIC GRAVITY (test code = SGU) 1.015 1.005-1.030 N UA BLOOD DIPSTICK (test code = CARLOS EDUARDO) 4+ NEGATIVE A UA PH DIPSTICK (test code = MICHELLE) 8.0 5.0-7.0 H UA PROTEIN DIPSTICK (test code = PROU) 4+ NEGATIVE A UA UROBILINIOGEN DIPSTICK (test code = URO) 0.2 mg/dL 0.2-1.0 UA NITRITE DIPSTICK (test code = AASHISH) NEGATIVE NEGATIVE UA LEUKOCYTE ESTERASE DIPSTICK (test code = LEUU) 3+ NEGA TIVE A UA RBC (test code = RBCU) RBC/HPF 0-3 URINALYSIS [id number] 02:15:00* Test Item Value Reference Range Interpretation Comments UA COLOR (test code = COLU) DARK YELLOW YEL/STRAW UA APPEARANCE (test code = APPU) TURBID CLEAR A UA GLUCOSE DIPSTICK (test code = DGLUU) NEGATIVE NEGATIVE UA BILIRUBIN DIPSTICK (test code = BILU) NEGATIVE NEGATIVE UA KETONE DIPSTICK (test code = KETU) NEGATIVE NEGATIVE UA SPECIFIC GRAVITY (test code = SGU) 1.015 1.005-1.030 N UA BLOOD DIPSTICK (test code = CARLOS EDUARDO) 4+ NEGATIVE A UA PH DIPSTICK (test code = MICHELLE) 8.0 5.0-7.0 H UA PROTEIN DIPSTICK (test code = PROU) 4+ NEGATIVE A UA UROBILINIOGEN DIPSTICK (test code = URO) 0.2 mg/dL 0.2-1.0 UA NITRITE DIPSTICK (test code = AASHISH) NEGATIVE NEGATIVE UA LEUKOCYTE ESTERASE DIPSTICK (test code = LEUU) 3+ NEGA TIVE A UA RBC (test code = RBCU) RBC/HPF 0-3 URINALYSIS [id number] 02:15:00* Test Item Value Reference Range Interpretation Comments UA COLOR (test code = COLU) DARK YELLOW YEL/STRAW UA APPEARANCE (test code = APPU) TURBID CLEAR A UA GLUCOSE DIPSTICK (test code = DGLUU) NEGATIVE NEGATIVE UA BILIRUBIN DIPSTICK (test code = BILU) NEGATIVE NEGATIVE UA KETONE DIPSTICK (test code = KETU) NEGATIVE NEGATIVE UA SPECIFIC GRAVITY (test code = SGU) 1.015 1.005-1.030 N UA BLOOD DIPSTICK (test code = CARLOS EDUARDO) 4+ NEGATIVE A UA PH DIPSTICK (test code = MICHELLE) 8.0 5.0-7.0 H UA PROTEIN DIPSTICK (test code = PROU) 4+ NEGATIVE A UA UROBILINIOGEN DIPSTICK (test code = URO) 0.2 mg/dL 0.2-1.0 UA NITRITE DIPSTICK (test code = AASHISH) NEGATIVE NEGATIVE UA LEUKOCYTE ESTERASE DIPSTICK (test code = LEUU) 3+ NEGA TIVE A UA RBC (test code = RBCU) >50 RBC/HPF 0-3 A 1: 3 DILUTION UA WBC NO REFLEX (test code = WBCUCL) >50 WBC/HPF 0-3 A UA BACTERIA (test code = BACU) 4+ /HPF NONE SEEN A UA SQUAMOUS CELLS (test code = SQU) NONE SEEN /HPF NONE SEEN UA TRANSITIONAL CELLS (test code = TRANU) 1+ /HPF NONE SEEN A UA MUCUS (test code = MUCU) 1+ /LPF NONE SEEN Coronavirus 2019 [facility] [id number] 02:15:00* Test Item Value Reference Range Interpretation Comments Coronavirus 2019 [facility] Bedside (test code = [id number]) Negative Negative Is patient requiring admission or transfer? YIndication for rapid COVID-19 testi ng: High Clinical SuspicionBASIC METABOLIC [id number] 02:08:00* Test Item Value Reference Range Interpretation Comments SODIUM (test code = NA) 134 mEq/L 134-147 N POTASSIUM (test code = K) 6.3 mEq/L 3.4-5.0 HH CHLORIDE (test code = CL) 98 mEq/L 100-108 L CARBON DIOXIDE (test code = CO2) 26 mEq/L 21-33 N ANION GAP (test code = GAP) 16 0-20 N GLUCOSE (test code = GLU) 88 mg/dL 70-110 BLOOD UREA NITROGEN (test code = BUN) 21 mg/dL 7-18 H GLOMERULAR FILTRATION RATE (test code = GFR) 8.7 90-95 L Units of measure = ml/min/1.73 m2 CREATININE (test code = CREAT) 5.1 mg/dL 0.6-1.3 H CALCIUM (test code = CA) 8.3 mg/dL 8.0-10.5 N HEPATIC FUNCTION [id number] 02:08:00* Test Item Value Reference Range Interpretation Comments TOTAL PROTEIN (test code = PROT) 6.9 g/dL 6.4-8.2 N ALBUMIN (test code = ALB) 2.40 g/dL 3.4-5.0 L BILIRUBIN TOTAL (test code = BILT) 0.3 MG/DL <1.5 N BILIRUBIN DIRECT (test code = BILD) < 0.10 MG/DL 0.0-0.30 N BILIRUBIN INDIRECT (test code = BILIND) 0.20 MG/DL SGOT/AST (test code = AST) 19 IUnit/L 15-37 N SGPT/ALT (test code = ALT) 17 IUnit/L 15-65 N ALKALINE PHOSPHATASE TOTAL (test code = ALKP) 105 IUnit/L 20-125 N [id number] 02:08:00* Test Item Value Reference Range Interpretation Comments LIPASE (test code = LIP) 80 IUnit/L 73-393 N TSH REFLEX TO [id number] 02:08:00* Test Item Value Reference Range Interpretation Comments TSH REFLEX TO FT4 (test code = TSHREFLEX) 2.34 IU/mL 0.42-5.47 N [id number] 02:08:00* Test Item Value Reference Range Interpretation Comments TROPONIN-I (test code = TROPI) < 0.015 ng/mL 0.000-0.045 N Negative: <= 0.045 Positive: >= 0.046 Correlation with serial results, other cardiac markers andclinical findings is necessary to determine the clinicalsignificance of this result. Results using different methodologies should not be comparedto one another as quantitative results may vary by method. BASIC METABOLIC [id number] 02:04:00* Test Item Value Reference Range Interpretation Comments SODIUM (test code = NA) 134 mEq/L 134-147 N POTASSIUM (test code = K) 6.3 mEq/L 3.4-5.0 HH CHLORIDE (test code = CL) 98 mEq/L 100-108 L CARBON DIOXIDE (test code = CO2) 26 mEq/L 21-33 N ANION GAP (test code = GAP) 16 0-20 N GLUCOSE (test code = GLU) 88 mg/dL 70-110 BLOOD UREA NITROGEN (test code = BUN) 21 mg/dL 7-18 H GLOMERULAR FILTRATION RATE (test code = GFR) 8.7 90-95 L Units of measure = ml/min/1.73 m2 CREATININE (test code = CREAT) 5.1 mg/dL 0.6-1.3 H CALCIUM (test code = CA) 8.3 mg/dL 8.0-10.5 N HEPATIC FUNCTION [id number] 02:04:00* Test Item Value Reference Range Interpretation Comments TOTAL PROTEIN (test code = PROT) 6.9 g/dL 6.4-8.2 N ALBUMIN (test code = ALB) 2.40 g/dL 3.4-5.0 L BILIRUBIN TOTAL (test code = BILT) 0.3 MG/DL <1.5 N BILIRUBIN DIRECT (test code = BILD) < 0.10 MG/DL 0.0-0.30 N BILIRUBIN INDIRECT (test code = BILIND) 0.20 MG/DL SGOT/AST (test code = AST) 19 IUnit/L 15-37 N SGPT/ALT (test code = ALT) 17 IUnit/L 15-65 N ALKALINE PHOSPHATASE TOTAL (test code = ALKP) 105 IUnit/L 20-125 N [id number] 02:04:00* Test Item Value Reference Range Interpretation Comments LIPASE (test code = LIP) 80 IUnit/L 73-393 N TSH REFLEX TO [id number] 02:04:00* Test Item Value Reference Range Interpretation Comments TSH REFLEX TO FT4 (test code = TSHREFLEX) IU/mL 0.42-5.47 [id number] 02:04:00* Test Item Value Reference Range Interpretation Comments TROPONIN-I (test code = TROPI) < 0.015 ng/mL 0.000-0.045 N Negative: <= 0.045 Positive: >= 0.046 Correlation with serial results, other cardiac markers andclinical findings is necessary to determine the clinicalsignificance of this result. Results using different methodologies should not be comparedto one another as quantitative results may vary by method. LACTIC [id number] 01:56:00* Test Item Value Reference Range Interpretation Comments LACTIC ACID (test code = LACT) 3.6 mmol/L 0.4-1.9 H - XR CHEST 1 [id number] 01:48:00 FAX: Gregory Tinoco MD [phone] [place]: St: REG FAX: Jaspreet Perea MD [phone] Name: TAI GRANT [facility] : 1960 Age/S: 59/F [address] [place] [address] Unit #: [id number] Loc: [place] [address] Phys: Gregory Thurston MD Acct: [id number] Dis Date: Status: REG ER PHONE #: [phone] Exam Date: 02/18/2020 0135 FAX #: [phone] Reason: Chest Pain EXAMS: CPT CODE: [id number] XR CHEST 1 V 10648 EXAM: CR, XR chest one view: 02/18/2020, 0017 hours HISTORY: Chest Pain TECHNIQUE: 1 view of the chest. COMPARISON: 02/09/2020 FINDINGS: Trachea is midline. Cardiomediastinal silhouette and osseous structures are stable. Pulmonary vascularity is unremarkable. There is no airspace consolidation, pleural effusion or pneumothorax. IMPRESSION: No acute cardiopulmonary disease seen. SL: [JSYED-H] at 0148 Reported and signed by: German Hughes M.D. CC: Gregory Thurston MD; Jaspreet Jerez MD Technologist: RT Sha(R) Trnscrd Date/Time/By: 02/18/2020 (0148) : By: [email or web address] Orig Print D/T: S: 02/18/2020 (5791) PAGE 1 Signed Report CBC W/AUTO [id number] 01:44:00* Test Item Value Reference Range Interpretation Comments WHITE BLOOD CELL (test code = WBC) 2.40 x10 3/uL 4.5-11.0 L RED BLOOD CELL (test code = RBC) 2.95 x10 6/uL 3.54-5.02 L HEMOGLOBIN (test code = HGB) 9.6 g/dL 11.0-15.0 L HEMATOCRIT (test code = HCT) 30.9 % 33.0-45.0 L MEAN CELL VOLUME (test code = MCV) 104.7 fL 81.0-99.0 H MEAN CELL HGB (test code = MCH) 32.5 pg 27.0-33.0 N MEAN CELL HGB CONCETRATION (test code = MCHC) 31.1 g/dL 33.0-37. 0 L RED CELL DISTRIBUTION WIDTH CV (test code = RDW) 18.9 % 11.5- 14.5 H RED CELL DISTRIBUTION WIDTH SD (test code = RDW-SD) 69.9 fL 37 .0-54.0 H PLATELET COUNT (test code = PLT) 56 x10 3/uL 150-400 L IMMATURE PLATELET FRACTION (test code = IPF) 2.5 % 0.9-11.2 N MEAN PLATELET VOLUME (test code = MPV) 11.2 fL 7.0-9.0 H NEUTROPHIL % (test code = NT%) 77.4 % 56.0-77.0 H IMMATURE GRANULOCYTE % (test code = IG%) 0.8 % 0.0-2.0 N LYMPHOCYTE % (test code = LY%) 6.7 % 14.0-32.0 L MONOCYTE % (test code = MO%) 13.8 % 4.8-9.0 H EOSINOPHIL % (test code = EO%) 1.3 % 0.3-3.7 N BASOPHIL % (test code = BA%) 0.0 % 0.0-2.0 N NUCLEATED RBC % (test code = NRBC%) 0.8 % 0-0 H NEUTROPHIL # (test code = NT#) 1.86 x10 3/uL 2.0-7.6 L IMMATURE GRANULOCYTE # (test code = IG#) 0.02 x10 3/uL 0.00-0.03 N LYMPHOCYTE # (test code = LY#) 0.16 x10 3/uL 1.0-3.8 L MONOCYTE # (test code = MO#) 0.33 x10 3/uL 0.1-0.8 N EOSINOPHIL # (test code = EO#) 0.03 x10 3/uL 0.0-0.2 N BASOPHIL # (test code = BA#) 0.00 x10 3/uL 0.0-0.2 N NUCLEATED RBC # (test code = NRBC#) 0.02 x10 3/uL 0.0-0.1 N MANUAL DIFF REQUIRED (test code = MDIFF) NO PLT [id number] 01:44:00* Test Item Value Reference Range Interpretation Comments PLATELET ESTIMATE (test code = PLTEST) THOUSAND ADEQUATE CBC W/AUTO [id number] 01:44:00* Test Item Value Reference Range Interpretation Comments WHITE BLOOD CELL (test code = WBC) 2.40 x10 3/uL 4.5-11.0 L RED BLOOD CELL (test code = RBC) 2.95 x10 6/uL 3.54-5.02 L HEMOGLOBIN (test code = HGB) 9.6 g/dL 11.0-15.0 L HEMATOCRIT (test code = HCT) 30.9 % 33.0-45.0 L MEAN CELL VOLUME (test code = MCV) 104.7 fL 81.0-99.0 H MEAN CELL HGB (test code = MCH) 32.5 pg 27.0-33.0 N MEAN CELL HGB CONCETRATION (test code = MCHC) 31.1 g/dL 33.0-37. 0 L RED CELL DISTRIBUTION WIDTH CV (test code = RDW) 18.9 % 11.5- 14.5 H RED CELL DISTRIBUTION WIDTH SD (test code = RDW-SD) 69.9 fL 37 .0-54.0 H PLATELET COUNT (test code = PLT) 56 x10 3/uL 150-400 L IMMATURE PLATELET FRACTION (test code = IPF) 2.5 % 0.9-11.2 N MEAN PLATELET VOLUME (test code = MPV) 11.2 fL 7.0-9.0 H NEUTROPHIL % (test code = NT%) 77.4 % 56.0-77.0 H IMMATURE GRANULOCYTE % (test code = IG%) 0.8 % 0.0-2.0 N LYMPHOCYTE % (test code = LY%) 6.7 % 14.0-32.0 L MONOCYTE % (test code = MO%) 13.8 % 4.8-9.0 H EOSINOPHIL % (test code = EO%) 1.3 % 0.3-3.7 N BASOPHIL % (test code = BA%) 0.0 % 0.0-2.0 N NUCLEATED RBC % (test code = NRBC%) 0.8 % 0-0 H NEUTROPHIL # (test code = NT#) 1.86 x10 3/uL 2.0-7.6 L IMMATURE GRANULOCYTE # (test code = IG#) 0.02 x10 3/uL 0.00-0.03 N LYMPHOCYTE # (test code = LY#) 0.16 x10 3/uL 1.0-3.8 L MONOCYTE # (test code = MO#) 0.33 x10 3/uL 0.1-0.8 N EOSINOPHIL # (test code = EO#) 0.03 x10 3/uL 0.0-0.2 N BASOPHIL # (test code = BA#) 0.00 x10 3/uL 0.0-0.2 N NUCLEATED RBC # (test code = NRBC#) 0.02 x10 3/uL 0.0-0.1 N MANUAL DIFF REQUIRED (test code = MDIFF) NO PLT [id number] 01:44:00* Test Item Value Reference Range Interpretation Comments PLATELET ESTIMATE (test code = PLTEST) THOUSAND ADEQUATE [id number] 21:53:00* Test Item Value Reference Range Interpretation Comments GLUBED (test code = GLUBED) 71 MG/DL 70-110 N Performed by certified vibrating screed operator at [facility] [id number] 21:28:00* Test Item Value Reference Range Interpretation Comments GLUBED (test code = GLUBED) 60 MG/DL 70-110 L Performed by certified vibrating screed operator at [facility] [id number] 20:42:00* Test Item Value Reference Range Interpretation Comments GLUBED (test code = GLUBED) 143 MG/DL 70-110 H Performed by certified vibrating screed operator at [facility] [id number] 16:29:00* Test Item Value Reference Range Interpretation Comments GLUBED (test code = GLUBED) 89 MG/DL 70-110 N Performed by certified vibrating screed operator at [facility] [id number] 16:29:00* Test Item Value Reference Range Interpretation Comments GLUBED (test code = GLUBED) 67 MG/DL 70-110 L Performed by certified vibrating screed operator at [facility] [id number] 08:02:00* Test Item Value Reference Range Interpretation Comments GLUBED (test code = GLUBED) 95 MG/DL 70-110 N Performed by certified vibrating screed operator at [facility] [id number] 07:28:00* Test Item Value Reference Range Interpretation Comments GLUBED (test code = GLUBED) 62 MG/DL 70-110 L Performed by certified vibrating screed operator at [facility] [id number] 20:29:00* Test Item Value Reference Range Interpretation Comments GLUBED (test code = GLUBED) 85 MG/DL 70-110 N Performed by certified vibrating screed operator at [facility] CBC W/AUTO [id number] 13:49:00* Test Item Value Reference Range Interpretation Comments WHITE BLOOD CELL (test code = WBC) 1.63 x10 3/uL 4.5-11.0 L RED BLOOD CELL (test code = RBC) 2.48 x10 6/uL 3.54-5.02 L HEMOGLOBIN (test code = HGB) 8.1 g/dL 11.0-15.0 L HEMATOCRIT (test code = HCT) 25.8 % 33.0-45.0 L MEAN CELL VOLUME (test code = MCV) 104.0 fL 81.0-99.0 H MEAN CELL HGB (test code = MCH) 32.7 pg 27.0-33.0 N MEAN CELL HGB CONCETRATION (test code = MCHC) 31.4 g/dL 33.0-37. 0 L RED CELL DISTRIBUTION WIDTH CV (test code = RDW) 18.6 % 11.5- 14.5 H RED CELL DISTRIBUTION WIDTH SD (test code = RDW-SD) 67.5 fL 37 .0-54.0 H PLATELET COUNT (test code = PLT) 81 x10 3/uL 150-400 L MEAN PLATELET VOLUME (test code = MPV) 9.4 fL 7.0-9.0 H NEUTROPHIL % (test code = NT%) 47.9 % 56.0-77.0 L IMMATURE GRANULOCYTE % (test code = IG%) 1.2 % 0.0-2.0 N LYMPHOCYTE % (test code = LY%) 25.2 % 14.0-32.0 N MONOCYTE % (test code = MO%) 19.0 % 4.8-9.0 H EOSINOPHIL % (test code = EO%) 6.7 % 0.3-3.7 H BASOPHIL % (test code = BA%) 0.0 % 0.0-2.0 N NUCLEATED RBC % (test code = NRBC%) 0.0 % 0-0 N NEUTROPHIL # (test code = NT#) 0.78 x10 3/uL 2.0-7.6 L IMMATURE GRANULOCYTE # (test code = IG#) 0.02 x10 3/uL 0.00-0.03 N LYMPHOCYTE # (test code = LY#) 0.41 x10 3/uL 1.0-3.8 L MONOCYTE # (test code = MO#) 0.31 x10 3/uL 0.1-0.8 N EOSINOPHIL # (test code = EO#) 0.11 x10 3/uL 0.0-0.2 N BASOPHIL # (test code = BA#) 0.00 x10 3/uL 0.0-0.2 N NUCLEATED RBC # (test code = NRBC#) 0.00 x10 3/uL 0.0-0.1 N MANUAL DIFF REQUIRED (test code = MDIFF) NO BASIC METABOLIC [id number] 13:39:00* Test Item Value Reference Range Interpretation Comments SODIUM (test code = NA) 137 mEq/L 134-147 N POTASSIUM (test code = K) 3.4 mEq/L 3.4-5.0 CHLORIDE (test code = CL) 101 mEq/L 100-108 N CARBON DIOXIDE (test code = CO2) 29 mEq/L 21-33 N ANION GAP (test code = GAP) 10 0-20 N GLUCOSE (test code = GLU) 155 mg/dL 70-110 H BLOOD UREA NITROGEN (test code = BUN) 16 mg/dL 7-18 N GLOMERULAR FILTRATION RATE (test code = GFR) 12.6 90-95 L Units of measure = ml/min/1.73 m2 CREATININE (test code = CREAT) 3.7 mg/dL 0.6-1.3 H CALCIUM (test code = CA) 7.8 mg/dL 8.0-10.5 L [id number] 13:14:00* Test Item Value Reference Range Interpretation Comments GLUBED (test code = GLUBED) 156 MG/DL 70-110 H Performed by certified vibrating screed operator at [facility] [id number] 08:32:00* Test Item Value Reference Range Interpretation Comments GLUBED (test code = GLUBED) 56 MG/DL 70-110 L Performed by certified vibrating screed operator at [facility] [id number] 08:07:00* Test Item Value Reference Range Interpretation Comments GLUBED (test code = GLUBED) 79 MG/DL 70-110 N Performed by certified vibrating screed operator at [facility] [id number] 20:53:00* Test Item Value Reference Range Interpretation Comments GLUBED (test code = GLUBED) 110 MG/DL 70-110 N Performed by certified vibrating screed operator at [facility] [id number] 17:16:00* Test Item Value Reference Range Interpretation Comments GLUBED (test code = GLUBED) 173 MG/DL 70-110 H Performed by certified vibrating screed operator at [facility] BASIC METABOLIC [id number] 14:27:00* Test Item Value Reference Range Interpretation Comments SODIUM (test code = NA) 137 mEq/L 134-147 N POTASSIUM (test code = K) 4.5 mEq/L 3.4-5.0 CHLORIDE (test code = CL) 101 mEq/L 100-108 N CARBON DIOXIDE (test code = CO2) 29 mEq/L 21-33 N ANION GAP (test code = GAP) 12 0-20 N GLUCOSE (test code = GLU) 54 mg/dL 70-110 L BLOOD UREA NITROGEN (test code = BUN) 20 mg/dL 7-18 H GLOMERULAR FILTRATION RATE (test code = GFR) 9.8 90-95 L Units of measure = ml/min/1.73 m2 CREATININE (test code = CREAT) 4.6 mg/dL 0.6-1.3 H CALCIUM (test code = CA) 8.1 mg/dL 8.0-10.5 N CBC W/AUTO [id number] 12:11:00* Test Item Value Reference Range Interpretation Comments WHITE BLOOD CELL (test code = WBC) 2.85 x10 3/uL 4.5-11.0 L RED BLOOD CELL (test code = RBC) 2.96 x10 6/uL 3.54-5.02 L HEMOGLOBIN (test code = HGB) 9.4 g/dL 11.0-15.0 L HEMATOCRIT (test code = HCT) 30.7 % 33.0-45.0 L MEAN CELL VOLUME (test code = MCV) 103.7 fL 81.0-99.0 H MEAN CELL HGB (test code = MCH) 31.8 pg 27.0-33.0 N MEAN CELL HGB CONCETRATION (test code = MCHC) 30.6 g/dL 33.0-37. 0 L RED CELL DISTRIBUTION WIDTH CV (test code = RDW) 18.4 % 11.5- 14.5 H RED CELL DISTRIBUTION WIDTH SD (test code = RDW-SD) 65.4 fL 37 .0-54.0 H PLATELET COUNT (test code = PLT) 99 x10 3/uL 150-400 L IMMATURE PLATELET FRACTION (test code = IPF) 1.4 % 0.9-11.2 N MEAN PLATELET VOLUME (test code = MPV) 9.8 fL 7.0-9.0 H NEUTROPHIL % (test code = NT%) 57.9 % 56.0-77.0 N IMMATURE GRANULOCYTE % (test code = IG%) 0.7 % 0.0-2.0 N LYMPHOCYTE % (test code = LY%) 19.6 % 14.0-32.0 N MONOCYTE % (test code = MO%) 16.8 % 4.8-9.0 H EOSINOPHIL % (test code = EO%) 4.6 % 0.3-3.7 H BASOPHIL % (test code = BA%) 0.4 % 0.0-2.0 N NUCLEATED RBC % (test code = NRBC%) 0.0 % 0-0 N NEUTROPHIL # (test code = NT#) 1.65 x10 3/uL 2.0-7.6 L IMMATURE GRANULOCYTE # (test code = IG#) 0.02 x10 3/uL 0.00-0.03 N LYMPHOCYTE # (test code = LY#) 0.56 x10 3/uL 1.0-3.8 L MONOCYTE # (test code = MO#) 0.48 x10 3/uL 0.1-0.8 N EOSINOPHIL # (test code = EO#) 0.13 x10 3/uL 0.0-0.2 N BASOPHIL # (test code = BA#) 0.01 x10 3/uL 0.0-0.2 N NUCLEATED RBC # (test code = NRBC#) 0.00 x10 3/uL 0.0-0.1 N MANUAL DIFF REQUIRED (test code = MDIFF) NO - SP DX BONE MARROW BX [id number] 12:09:00 FAX: Jonathan Hendricks [phone] [place]: St: ADM FAX: Fritz Tsang MD [phone] FAX: Jaspreet Perea MD [phone] Name: GRANTTAI DARYL [facility] : 1960 Age/S: 59/F [address] [place] [address] Unit #: [id number] Loc: G.6607 [place] [address] Phys: Fritz Webb MD Acct: [id number] Dis Date: Status: ADM IN ONE #: [phone] Exam Date: 02/13/2020 1210 FAX #: [phone] 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 COMPARISON: None. TECHNICAL: Fluoroscopic Time: 0.5 minutes. Reference Air Kerma Dose: 9 mGy. MODERATE SEDATION: I supervised moderate sedation during this procedure. The patie nt was monitored by nurse using automated blood pressure, EKG and pulse ox imetry. The moderate sedation record is permanently stored in the hospital information system. The personal supervised moderate sedation time was 30 minutes. Medications administered: 0.5 mg of IV Versed and 25 saida rograms of IV Fentanyl. PROCEDURE: The proced ure, risks, benefits, and alternatives were discussed. Informed consent wa s obtained. Timeout was performed prior to the procedure. Le ft gluteal region was prepped and draped in usual sterile fashion. Local anesthesia achieved with 1% lidocaine. Under intermittent fluoroscopic gu idance, an 11-gauge Jamshidi needle was advanced into the left iliac crest . A fluoroscopic image was stored. Bone marrow aspirates and a core biop sy sample were acquired. Samples were submitted to the bone marrow techno logist and were deemed adequate. Needle was removed and a sterile dressin g was applied. The patient left the procedure room in unchanged stable co ndition. FINDINGS: Medical Device Sales Representative image shows biopsy needle p rojecting over the left iliac crest. IMPRESSION: Status post fluoroscopic guided bone marrow biopsy. 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 CC: Jonathan Vogel MD; Fritz Webb MD; Jaspreet Jerez MD Technologist: Saravanan Villeda, RT(R); Annabella Chavez RT(R)(CT) Trnscrd Date/Time/By: 02/15/2020 (9470) : By: [email or web address] Orig Print D/T: S: 02/15/2020 (3618) PAGE 2 Signed Report [id number] 11:15:00* Test Item Value Reference Range Interpretation Comments GLUBED (test code = GLUBED) 131 MG/DL 70-110 H Performed by certified vibrating screed operator at [facility] [id number] 09:44:00* Test Item Value Reference Range Interpretation Comments GLUBED (test code = GLUBED) 58 MG/DL 70-110 L Performed by certified vibrating screed operator at [facility] [id number] 08:09:00* Test Item Value Reference Range Interpretation Comments GLUBED (test code = GLUBED) 91 MG/DL 70-110 N Performed by certified vibrating screed operator at [facility] [id number] 21:25:00* Test Item Value Reference Range Interpretation Comments GLUBED (test code = GLUBED) 199 MG/DL 70-110 H Performed by certified vibrating screed operator at [facility] [id number] 17:41:00* Test Item Value Reference Range Interpretation Comments GLUBED (test code = GLUBED) 167 MG/DL 70-110 H Performed by certified vibrating screed operator at [facility] CBC W/AUTO [id number] 11:23:00* Test Item Value Reference Range Interpretation Comments WHITE BLOOD CELL (test code = WBC) 3.11 x10 3/uL 4.5-11.0 L RED BLOOD CELL (test code = RBC) 2.53 x10 6/uL 3.54-5.02 L HEMOGLOBIN (test code = HGB) 8.1 g/dL 11.0-15.0 L HEMATOCRIT (test code = HCT) 26.6 % 33.0-45.0 L MEAN CELL VOLUME (test code = MCV) 105.1 fL 81.0-99.0 H MEAN CELL HGB (test code = MCH) 32.0 pg 27.0-33.0 N MEAN CELL HGB CONCETRATION (test code = MCHC) 30.5 g/dL 33.0-37. 0 L RED CELL DISTRIBUTION WIDTH CV (test code = RDW) 18.0 % 11.5- 14.5 H RED CELL DISTRIBUTION WIDTH SD (test code = RDW-SD) 65.2 fL 37 .0-54.0 H PLATELET COUNT (test code = PLT) 86 x10 3/uL 150-400 L MEAN PLATELET VOLUME (test code = MPV) 10.0 fL 7.0-9.0 H MANUAL DIFF REQUIRED (test code = MDIFF) YES WBC [id number] 11:23:00* Test Item Value Reference Range Interpretation Comments SEGMENTED NEUTROPHILS (test code = SEG) 44.5 % 37-69 N LYMPHOCYTE (test code = LYMPH) 29.1 % 23-55 N MONOCYTE (test code = MON) 17.3 % 0-10 H EOSINOPHIL (test code = EOS) 6.4 % 0.0-4.0 H BASOPHIL (test code = BASO) 1.8 % 0.0-2.0 N NUCLEATED RED BLOOD CELL (test code = NRBC) 0.9 % PLASMA CELL (test code = MYLENE) 0.9 0-0 H ANISOCYTOSIS (test code = ANISO) 2+ MACROCYTOSIS (test code = MACR) 2+ PLATELET ESTIMATE (test code = PLTEST) 80-100 THOUSAND ADEQUATE PLATELET MORPHOLOGY (test code = PLTMORPH) LARGE PLATELETS FEW CBC W/AUTO [id number] 11:10:00* Test Item Value Reference Range Interpretation Comments WHITE BLOOD CELL (test code = WBC) 3.11 x10 3/uL 4.5-11.0 L RED BLOOD CELL (test code = RBC) 2.53 x10 6/uL 3.54-5.02 L HEMOGLOBIN (test code = HGB) 8.1 g/dL 11.0-15.0 L HEMATOCRIT (test code = HCT) 26.6 % 33.0-45.0 L MEAN CELL VOLUME (test code = MCV) 105.1 fL 81.0-99.0 H MEAN CELL HGB (test code = MCH) 32.0 pg 27.0-33.0 N MEAN CELL HGB CONCETRATION (test code = MCHC) 30.5 g/dL 33.0-37. 0 L RED CELL DISTRIBUTION WIDTH CV (test code = RDW) 18.0 % 11.5- 14.5 H RED CELL DISTRIBUTION WIDTH SD (test code = RDW-SD) 65.2 fL 37 .0-54.0 H PLATELET COUNT (test code = PLT) 86 x10 3/uL 150-400 L MEAN PLATELET VOLUME (test code = MPV) 10.0 fL 7.0-9.0 H MANUAL DIFF REQUIRED (test code = MDIFF) YES WBC [id number] 11:10:00* Test Item Value Reference Range Interpretation Comments ANISOCYTOSIS (test code = ANISO) PLATELET ESTIMATE (test code = PLTEST) THOUSAND ADEQUATE CBC W/AUTO [id number] 11:10:00* Test Item Value Reference Range Interpretation Comments WHITE BLOOD CELL (test code = WBC) 3.11 x10 3/uL 4.5-11.0 L RED BLOOD CELL (test code = RBC) 2.53 x10 6/uL 3.54-5.02 L HEMOGLOBIN (test code = HGB) 8.1 g/dL 11.0-15.0 L HEMATOCRIT (test code = HCT) 26.6 % 33.0-45.0 L MEAN CELL VOLUME (test code = MCV) 105.1 fL 81.0-99.0 H MEAN CELL HGB (test code = MCH) 32.0 pg 27.0-33.0 N MEAN CELL HGB CONCETRATION (test code = MCHC) 30.5 g/dL 33.0-37. 0 L RED CELL DISTRIBUTION WIDTH CV (test code = RDW) 18.0 % 11.5- 14.5 H RED CELL DISTRIBUTION WIDTH SD (test code = RDW-SD) 65.2 fL 37 .0-54.0 H PLATELET COUNT (test code = PLT) 86 x10 3/uL 150-400 L MEAN PLATELET VOLUME (test code = MPV) 10.0 fL 7.0-9.0 H MANUAL DIFF REQUIRED (test code = MDIFF) YES WBC [id number] 11:10:00* Test Item Value Reference Range Interpretation Comments ANISOCYTOSIS (test code = ANISO) PLATELET ESTIMATE (test code = PLTEST) THOUSAND ADEQUATE CBC W/AUTO [id number] 08:33:00* Test Item Value Reference Range Interpretation Comments WHITE BLOOD CELL (test code = WBC) 3.11 x10 3/uL 4.5-11.0 L RED BLOOD CELL (test code = RBC) 2.53 x10 6/uL 3.54-5.02 L HEMOGLOBIN (test code = HGB) 8.1 g/dL 11.0-15.0 L HEMATOCRIT (test code = HCT) 26.6 % 33.0-45.0 L MEAN CELL VOLUME (test code = MCV) 105.1 fL 81.0-99.0 H MEAN CELL HGB (test code = MCH) 32.0 pg 27.0-33.0 N MEAN CELL HGB CONCETRATION (test code = MCHC) 30.5 g/dL 33.0-37. 0 L RED CELL DISTRIBUTION WIDTH CV (test code = RDW) 18.0 % 11.5- 14.5 H RED CELL DISTRIBUTION WIDTH SD (test code = RDW-SD) 65.2 fL 37 .0-54.0 H PLATELET COUNT (test code = PLT) 86 x10 3/uL 150-400 L MEAN PLATELET VOLUME (test code = MPV) 10.0 fL 7.0-9.0 H NEUTROPHIL % (test code = NT%) % 56.0-77.0 LYMPHOCYTE % (test code = LY%) % 14.0-32.0 NEUTROPHIL # (test code = NT#) x10 3/uL 2.0-7.6 LYMPHOCYTE # (test code = LY#) x10 3/uL 1.0-3.8 MANUAL DIFF REQUIRED (test code = MDIFF) [id number] 08:10:00* Test Item Value Reference Range Interpretation Comments GLUBED (test code = GLUBED) 77 MG/DL 70-110 N Performed by certified vibrating screed operator at [facility] [id number] 08:10:00* Test Item Value Reference Range Interpretation Comments GLUBED (test code = GLUBED) 46 MG/DL 70-110 L Performed by certified vibrating screed operator at [facility] BASIC METABOLIC [id number] 07:42:00* Test Item Value Reference Range Interpretation Comments SODIUM (test code = NA) 136 mEq/L 134-147 N POTASSIUM (test code = K) 6.2 mEq/L 3.4-5.0 HH CHLORIDE (test code = CL) 101 mEq/L 100-108 N CARBON DIOXIDE (test code = CO2) 26 mEq/L 21-33 N ANION GAP (test code = GAP) 15 0-20 N GLUCOSE (test code = GLU) 55 mg/dL 70-110 L BLOOD UREA NITROGEN (test code = BUN) 36 mg/dL 7-18 H GLOMERULAR FILTRATION RATE (test code = GFR) 7.7 90-95 L Units of measure = ml/min/1.73 m2 CREATININE (test code = CREAT) 5.7 mg/dL 0.6-1.3 H CALCIUM (test code = CA) 8.6 mg/dL 8.0-10.5 N PROTHROMBIN [id number] 06:53:00* Test Item Value Reference Range Interpretation Comments PROTHROMBIN TIME PATIENT (test code = PTP) 12.8 SECONDS 9.3-12.9 N INTERNATIONAL NORMAL RATIO (test code = INR) 1.2 0.8-1.2 N TARGET INR BY INDICATION Indication INR1. Prophylaxis of venous thrombosis 2.0 - 3.0 (orthopedic surgery), Prophylaxis of venous thrombosis (other than high-risk surgery), Treatment of Deep Vein Thrombosis/Pulmonary Embolism, Prevention of systemic embolism - Tissue heart valves, Acute Myocardial Infarction (to prevent systemic embolism), Valvular heart disease, Atrial Fibrillation, Bileaflet mechanical valve in aortic position.2. Mechanical prosthetic valves (high risk), 2.5 - 3.5 Presence of Lupus Anticoagulant or Antiphospholipid Antibodies, Prevention of systemic embolism - Acute Myocardial Infarction (to prevent recurrent infarct). THROMBOPLASTIN TIME [id number] 06:53:00* Test Item Value Reference Range Interpretation Comments THROMBOPLASTIN TIME PARTIAL (test code = PTT) 46.9 Seconds 25.0-39. 5 H Therapeutic Range: 50.4 - 88.3 Seconds Effective 02/07/2019 [id number] 20:24:00* Test Item Value Reference Range Interpretation Comments GLUBED (test code = GLUBED) 102 MG/DL 70-110 N Performed by certified vibrating screed operator at [facility] [id number] 16:00:00* Test Item Value Reference Range Interpretation Comments GLUBED (test code = GLUBED) 77 MG/DL 70-110 N Performed by certified vibrating screed operator at [facility] ACUTE HEPATITIS [id number] 13:08:00* Test Item Value Reference Range Interpretation Comments AB HEPATITIS A IGM (test code = HAVMAB) NON REACTIVE INDEX NON REAC T. AG HEPATITIS B SURFACE (test code = HBSAG) NON REACTIVE INDEX NonRe active AB HEPATITIS B CORE IGM (test code = HBCMAB) NON REACTIVE INDEX NON REACT. AB HEPATITIS C (test code = HCVAB) NON REACTIVE INDEX NON REACT. AB HEPATITIS B [id number] 13:08:00* Test Item Value Reference Range Interpretation Comments AB HEPATITIS B SURFACE (test code = HBSAB) 12.6 mIU/mL Immunity>9. 9 Verified by repeat analysis Status of Immunity Anti-HBs Level Inconsistent with Immunity 0.0 - 9.9Consistent with Immunity >9.9Performed At: [facility] [address] [id number] Kenny Power MD Ph:[phone] CBC W/AUTO [id number] 12:00:00* Test Item Value Reference Range Interpretation Comments WHITE BLOOD CELL (test code = WBC) 2.38 x10 3/uL 4.5-11.0 L RED BLOOD CELL (test code = RBC) 2.66 x10 6/uL 3.54-5.02 L HEMOGLOBIN (test code = HGB) 8.4 g/dL 11.0-15.0 L HEMATOCRIT (test code = HCT) 27.2 % 33.0-45.0 L MEAN CELL VOLUME (test code = MCV) 102.3 fL 81.0-99.0 H MEAN CELL HGB (test code = MCH) 31.6 pg 27.0-33.0 N MEAN CELL HGB CONCETRATION (test code = MCHC) 30.9 g/dL 33.0-37. 0 L RED CELL DISTRIBUTION WIDTH CV (test code = RDW) 18.1 % 11.5- 14.5 H RED CELL DISTRIBUTION WIDTH SD (test code = RDW-SD) 64.0 fL 37 .0-54.0 H PLATELET COUNT (test code = PLT) 85 x10 3/uL 150-400 L MEAN PLATELET VOLUME (test code = MPV) 9.9 fL 7.0-9.0 H MANUAL DIFF REQUIRED (test code = MDIFF) YES WBC [id number] 12:00:00* Test Item Value Reference Range Interpretation Comments SEGMENTED NEUTROPHILS (test code = SEG) 52.7 % 37-69 N LYMPHOCYTE (test code = LYMPH) 22.8 % 23-55 L REACTIVE LYMPH (test code = RELYMPH) 2.7 % MONOCYTE (test code = MON) 12.7 % 0-10 H EOSINOPHIL (test code = EOS) 7.3 % 0.0-4.0 H BASOPHIL (test code = BASO) 0.9 % 0.0-2.0 N METAMYELOCYTE (test code = META) 0.9 % 0.0-0.0 H POLYCHROMASIA (test code = POLC) 1+ POIKILOCYTOSIS (test code = POIK) SLIGHT BASOPHILIC STIPPLING (test code = STP) FEW ANISOCYTOSIS (test code = ANISO) 1+ MICROCYTOSIS (test code = MICR) FEW MACROCYTOSIS (test code = MACR) FEW OVALOCYTES (test code = OVAL) FEW PLATELET ESTIMATE (test code = PLTEST) 92-115 THOUSAND ADEQUATE PLATELET MORPHOLOGY (test code = PLTMORPH) LARGE PLATELETS FEW LARGE PLTS SEEN CBC W/AUTO [id number] 11:46:00* Test Item Value Reference Range Interpretation Comments WHITE BLOOD CELL (test code = WBC) 2.38 x10 3/uL 4.5-11.0 L RED BLOOD CELL (test code = RBC) 2.66 x10 6/uL 3.54-5.02 L HEMOGLOBIN (test code = HGB) 8.4 g/dL 11.0-15.0 L HEMATOCRIT (test code = HCT) 27.2 % 33.0-45.0 L MEAN CELL VOLUME (test code = MCV) 102.3 fL 81.0-99.0 H MEAN CELL HGB (test code = MCH) 31.6 pg 27.0-33.0 N MEAN CELL HGB CONCETRATION (test code = MCHC) 30.9 g/dL 33.0-37. 0 L RED CELL DISTRIBUTION WIDTH CV (test code = RDW) 18.1 % 11.5- 14.5 H RED CELL DISTRIBUTION WIDTH SD (test code = RDW-SD) 64.0 fL 37 .0-54.0 H PLATELET COUNT (test code = PLT) 85 x10 3/uL 150-400 L MEAN PLATELET VOLUME (test code = MPV) 9.9 fL 7.0-9.0 H MANUAL DIFF REQUIRED (test code = MDIFF) YES WBC [id number] 11:46:00* Test Item Value Reference Range Interpretation Comments ANISOCYTOSIS (test code = ANISO) PLATELET ESTIMATE (test code = PLTEST) THOUSAND ADEQUATE CBC W/AUTO [id number] 11:46:00* Test Item Value Reference Range Interpretation Comments WHITE BLOOD CELL (test code = WBC) 2.38 x10 3/uL 4.5-11.0 L RED BLOOD CELL (test code = RBC) 2.66 x10 6/uL 3.54-5.02 L HEMOGLOBIN (test code = HGB) 8.4 g/dL 11.0-15.0 L HEMATOCRIT (test code = HCT) 27.2 % 33.0-45.0 L MEAN CELL VOLUME (test code = MCV) 102.3 fL 81.0-99.0 H MEAN CELL HGB (test code = MCH) 31.6 pg 27.0-33.0 N MEAN CELL HGB CONCETRATION (test code = MCHC) 30.9 g/dL 33.0-37. 0 L RED CELL DISTRIBUTION WIDTH CV (test code = RDW) 18.1 % 11.5- 14.5 H RED CELL DISTRIBUTION WIDTH SD (test code = RDW-SD) 64.0 fL 37 .0-54.0 H PLATELET COUNT (test code = PLT) 85 x10 3/uL 150-400 L MEAN PLATELET VOLUME (test code = MPV) 9.9 fL 7.0-9.0 H MANUAL DIFF REQUIRED (test code = MDIFF) YES WBC [id number] 11:46:00* Test Item Value Reference Range Interpretation Comments ANISOCYTOSIS (test code = ANISO) PLATELET ESTIMATE (test code = PLTEST) THOUSAND ADEQUATE BASIC METABOLIC [id number] 08:12:00* Test Item Value Reference Range Interpretation Comments SODIUM (test code = NA) 137 mEq/L 134-147 N POTASSIUM (test code = K) 5.0 mEq/L 3.4-5.0 N CHLORIDE (test code = CL) 101 mEq/L 100-108 N CARBON DIOXIDE (test code = CO2) 27 mEq/L 21-33 N ANION GAP (test code = GAP) 14 0-20 N GLUCOSE (test code = GLU) 67 mg/dL 70-110 L BLOOD UREA NITROGEN (test code = BUN) 21 mg/dL 7-18 H GLOMERULAR FILTRATION RATE (test code = GFR) 10.6 90-95 L Units of measure = ml/min/1.73 m2 CREATININE (test code = CREAT) 4.3 mg/dL 0.6-1.3 H CALCIUM (test code = CA) 8.3 mg/dL 8.0-10.5 N CBC W/AUTO [id number] 07:59:00* Test Item Value Reference Range Interpretation Comments WHITE BLOOD CELL (test code = WBC) 2.38 x10 3/uL 4.5-11.0 L RED BLOOD CELL (test code = RBC) 2.66 x10 6/uL 3.54-5.02 L HEMOGLOBIN (test code = HGB) 8.4 g/dL 11.0-15.0 L HEMATOCRIT (test code = HCT) 27.2 % 33.0-45.0 L MEAN CELL VOLUME (test code = MCV) 102.3 fL 81.0-99.0 H MEAN CELL HGB (test code = MCH) 31.6 pg 27.0-33.0 N MEAN CELL HGB CONCETRATION (test code = MCHC) 30.9 g/dL 33.0-37. 0 L RED CELL DISTRIBUTION WIDTH CV (test code = RDW) 18.1 % 11.5- 14.5 H RED CELL DISTRIBUTION WIDTH SD (test code = RDW-SD) 64.0 fL 37 .0-54.0 H PLATELET COUNT (test code = PLT) 85 x10 3/uL 150-400 L MEAN PLATELET VOLUME (test code = MPV) 9.9 fL 7.0-9.0 H NEUTROPHIL % (test code = NT%) % 56.0-77.0 LYMPHOCYTE % (test code = LY%) % 14.0-32.0 NEUTROPHIL # (test code = NT#) x10 3/uL 2.0-7.6 LYMPHOCYTE # (test code = LY#) x10 3/uL 1.0-3.8 MANUAL DIFF REQUIRED (test code = MDIFF) [id number] 07:35:00* Test Item Value Reference Range Interpretation Comments GLUBED (test code = GLUBED) 61 MG/DL 70-110 L Performed by certified vibrating screed operator at [facility] [id number] 20:40:00* Test Item Value Reference Range Interpretation Comments GLUBED (test code = GLUBED) 74 MG/DL 70-110 N Performed by certified vibrating screed operator at [facility] [id number] 17:04:00* Test Item Value Reference Range Interpretation Comments GLUBED (test code = GLUBED) 123 MG/DL 70-110 H Performed by certified vibrating screed operator at [facility] [id number] 16:38:00* Test Item Value Reference Range Interpretation Comments GLUBED (test code = GLUBED) 93 MG/DL 70-110 N Performed by certified vibrating screed operator at [facility] CBC W/AUTO [id number] 10:38:00* Test Item Value Reference Range Interpretation Comments WHITE BLOOD CELL (test code = WBC) 3.59 x10 3/uL 4.5-11.0 L RED BLOOD CELL (test code = RBC) 2.72 x10 6/uL 3.54-5.02 L HEMOGLOBIN (test code = HGB) 8.7 g/dL 11.0-15.0 L HEMATOCRIT (test code = HCT) 28.1 % 33.0-45.0 L MEAN CELL VOLUME (test code = MCV) 103.3 fL 81.0-99.0 H MEAN CELL HGB (test code = MCH) 32.0 pg 27.0-33.0 N MEAN CELL HGB CONCETRATION (test code = MCHC) 31.0 g/dL 33.0-37. 0 L RED CELL DISTRIBUTION WIDTH CV (test code = RDW) 18.3 % 11.5- 14.5 H RED CELL DISTRIBUTION WIDTH SD (test code = RDW-SD) 65.1 fL 37 .0-54.0 H PLATELET COUNT (test code = PLT) 92 x10 3/uL 150-400 L MEAN PLATELET VOLUME (test code = MPV) 9.7 fL 7.0-9.0 H NEUTROPHIL % (test code = NT%) 60.2 % 56.0-77.0 N IMMATURE GRANULOCYTE % (test code = IG%) 0.6 % 0.0-2.0 N LYMPHOCYTE % (test code = LY%) 21.7 % 14.0-32.0 N MONOCYTE % (test code = MO%) 13.9 % 4.8-9.0 H EOSINOPHIL % (test code = EO%) 3.3 % 0.3-3.7 N BASOPHIL % (test code = BA%) 0.3 % 0.0-2.0 N NUCLEATED RBC % (test code = NRBC%) 0.6 % 0-0 H NEUTROPHIL # (test code = NT#) 2.16 x10 3/uL 2.0-7.6 N IMMATURE GRANULOCYTE # (test code = IG#) 0.02 x10 3/uL 0.00-0.03 N LYMPHOCYTE # (test code = LY#) 0.78 x10 3/uL 1.0-3.8 L MONOCYTE # (test code = MO#) 0.50 x10 3/uL 0.1-0.8 N EOSINOPHIL # (test code = EO#) 0.12 x10 3/uL 0.0-0.2 N BASOPHIL # (test code = BA#) 0.01 x10 3/uL 0.0-0.2 N NUCLEATED RBC # (test code = NRBC#) 0.02 x10 3/uL 0.0-0.1 N MANUAL DIFF REQUIRED (test code = MDIFF) NO PLT [id number] 10:38:00* Test Item Value Reference Range Interpretation Comments PLATELET ESTIMATE (test code = PLTEST) 104-130 THOUSAND ADEQUATE PLATELET MORPHOLOGY (test code = PLTMORPH) LARGE PLATELETS LARGE PLTS SEEN [id number] 09:04:00* Test Item Value Reference Range Interpretation Comments GLUBED (test code = GLUBED) 149 MG/DL 70-110 H Performed by certified vibrating screed operator at [facility] CBC W/AUTO [id number] 07:51:00* Test Item Value Reference Range Interpretation Comments WHITE BLOOD CELL (test code = WBC) 3.59 x10 3/uL 4.5-11.0 L RED BLOOD CELL (test code = RBC) 2.72 x10 6/uL 3.54-5.02 L HEMOGLOBIN (test code = HGB) 8.7 g/dL 11.0-15.0 L HEMATOCRIT (test code = HCT) 28.1 % 33.0-45.0 L MEAN CELL VOLUME (test code = MCV) 103.3 fL 81.0-99.0 H MEAN CELL HGB (test code = MCH) 32.0 pg 27.0-33.0 N MEAN CELL HGB CONCETRATION (test code = MCHC) 31.0 g/dL 33.0-37. 0 L RED CELL DISTRIBUTION WIDTH CV (test code = RDW) 18.3 % 11.5- 14.5 H RED CELL DISTRIBUTION WIDTH SD (test code = RDW-SD) 65.1 fL 37 .0-54.0 H PLATELET COUNT (test code = PLT) 92 x10 3/uL 150-400 L MEAN PLATELET VOLUME (test code = MPV) 9.7 fL 7.0-9.0 H NEUTROPHIL % (test code = NT%) 60.2 % 56.0-77.0 N IMMATURE GRANULOCYTE % (test code = IG%) 0.6 % 0.0-2.0 N LYMPHOCYTE % (test code = LY%) 21.7 % 14.0-32.0 N MONOCYTE % (test code = MO%) 13.9 % 4.8-9.0 H EOSINOPHIL % (test code = EO%) 3.3 % 0.3-3.7 N BASOPHIL % (test code = BA%) 0.3 % 0.0-2.0 N NUCLEATED RBC % (test code = NRBC%) 0.6 % 0-0 H NEUTROPHIL # (test code = NT#) 2.16 x10 3/uL 2.0-7.6 N IMMATURE GRANULOCYTE # (test code = IG#) 0.02 x10 3/uL 0.00-0.03 N LYMPHOCYTE # (test code = LY#) 0.78 x10 3/uL 1.0-3.8 L MONOCYTE # (test code = MO#) 0.50 x10 3/uL 0.1-0.8 N EOSINOPHIL # (test code = EO#) 0.12 x10 3/uL 0.0-0.2 N BASOPHIL # (test code = BA#) 0.01 x10 3/uL 0.0-0.2 N NUCLEATED RBC # (test code = NRBC#) 0.02 x10 3/uL 0.0-0.1 N MANUAL DIFF REQUIRED (test code = MDIFF) NO PLT [id number] 07:51:00* Test Item Value Reference Range Interpretation Comments PLATELET ESTIMATE (test code = PLTEST) THOUSAND ADEQUATE CBC W/AUTO [id number] 07:51:00* Test Item Value Reference Range Interpretation Comments WHITE BLOOD CELL (test code = WBC) 3.59 x10 3/uL 4.5-11.0 L RED BLOOD CELL (test code = RBC) 2.72 x10 6/uL 3.54-5.02 L HEMOGLOBIN (test code = HGB) 8.7 g/dL 11.0-15.0 L HEMATOCRIT (test code = HCT) 28.1 % 33.0-45.0 L MEAN CELL VOLUME (test code = MCV) 103.3 fL 81.0-99.0 H MEAN CELL HGB (test code = MCH) 32.0 pg 27.0-33.0 N MEAN CELL HGB CONCETRATION (test code = MCHC) 31.0 g/dL 33.0-37. 0 L RED CELL DISTRIBUTION WIDTH CV (test code = RDW) 18.3 % 11.5- 14.5 H RED CELL DISTRIBUTION WIDTH SD (test code = RDW-SD) 65.1 fL 37 .0-54.0 H PLATELET COUNT (test code = PLT) 92 x10 3/uL 150-400 L MEAN PLATELET VOLUME (test code = MPV) 9.7 fL 7.0-9.0 H NEUTROPHIL % (test code = NT%) 60.2 % 56.0-77.0 N IMMATURE GRANULOCYTE % (test code = IG%) 0.6 % 0.0-2.0 N LYMPHOCYTE % (test code = LY%) 21.7 % 14.0-32.0 N MONOCYTE % (test code = MO%) 13.9 % 4.8-9.0 H EOSINOPHIL % (test code = EO%) 3.3 % 0.3-3.7 N BASOPHIL % (test code = BA%) 0.3 % 0.0-2.0 N NUCLEATED RBC % (test code = NRBC%) 0.6 % 0-0 H NEUTROPHIL # (test code = NT#) 2.16 x10 3/uL 2.0-7.6 N IMMATURE GRANULOCYTE # (test code = IG#) 0.02 x10 3/uL 0.00-0.03 N LYMPHOCYTE # (test code = LY#) 0.78 x10 3/uL 1.0-3.8 L MONOCYTE # (test code = MO#) 0.50 x10 3/uL 0.1-0.8 N EOSINOPHIL # (test code = EO#) 0.12 x10 3/uL 0.0-0.2 N BASOPHIL # (test code = BA#) 0.01 x10 3/uL 0.0-0.2 N NUCLEATED RBC # (test code = NRBC#) 0.02 x10 3/uL 0.0-0.1 N MANUAL DIFF REQUIRED (test code = MDIFF) NO PLT [id number] 07:51:00* Test Item Value Reference Range Interpretation Comments PLATELET ESTIMATE (test code = PLTEST) THOUSAND ADEQUATE [id number] 07:50:00* Test Item Value Reference Range Interpretation Comments GLUBED (test code = GLUBED) 100 MG/DL 70-110 N Performed by certified vibrating screed operator at [facility] [id number] 07:50:00* Test Item Value Reference Range Interpretation Comments GLUBED (test code = GLUBED) 125 MG/DL 70-110 H Performed by certified vibrating screed operator at [facility] [id number] 07:50:00* Test Item Value Reference Range Interpretation Comments GLUBED (test code = GLUBED) 46 MG/DL 70-110 L Performed by certified vibrating screed operator at [facility] BASIC METABOLIC [id number] 07:32:00* Test Item Value Reference Range Interpretation Comments SODIUM (test code = NA) 136 mEq/L 134-147 N POTASSIUM (test code = K) 5.6 mEq/L 3.4-5.0 H CHLORIDE (test code = CL) 101 mEq/L 100-108 N CARBON DIOXIDE (test code = CO2) 24 mEq/L 21-33 N ANION GAP (test code = GAP) 17 0-20 N GLUCOSE (test code = GLU) 127 mg/dL 70-110 H BLOOD UREA NITROGEN (test code = BUN) 39 mg/dL 7-18 H GLOMERULAR FILTRATION RATE (test code = GFR) 6.8 90-95 L Units of measure = ml/min/1.73 m2 CREATININE (test code = CREAT) 6.3 mg/dL 0.6-1.3 H CALCIUM (test code = CA) 8.4 mg/dL 8.0-10.5 N [id number] 07:32:00* Test Item Value Reference Range Interpretation Comments PHOSPHOROUS (test code = PHOS) 5.1 MG/DL 2.5-4.9 H [id number] 22:01:00* Test Item Value Reference Range Interpretation Comments GLUBED (test code = GLUBED) 85 MG/DL 70-110 N Performed by certified vibrating screed operator at [facility] [id number] 22:01:00* Test Item Value Reference Range Interpretation Comments GLUBED (test code = GLUBED) 107 MG/DL 70-110 N Performed by certified vibrating screed operator at [facility] [id number] 20:16:00* Test Item Value Reference Range Interpretation Comments GLUBED (test code = GLUBED) 72 MG/DL 70-110 N Performed by certified vibrating screed operator at [facility] [id number] 18:37:00* Test Item Value Reference Range Interpretation Comments GLUBED (test code = GLUBED) 186 MG/DL 70-110 H Performed by certified vibrating screed operator at [facility] [id number] 12:03:00* Test Item Value Reference Range Interpretation Comments GLUBED (test code = GLUBED) 98 MG/DL 70-110 N Performed by certified vibrating screed operator at [facility] AB HIV 1 10:06:00* Test Item Value Reference Range Interpretation Comments AB HIV 1 2 (test code = EYH12IE) NONREACTIVE INDEX NONREACTIVE CBC W/AUTO [id number] 10:03:00* Test Item Value Reference Range Interpretation Comments WHITE BLOOD CELL (test code = WBC) 2.60 x10 3/uL 4.5-11.0 L RED BLOOD CELL (test code = RBC) 2.60 x10 6/uL 3.54-5.02 L HEMOGLOBIN (test code = HGB) 8.3 g/dL 11.0-15.0 L HEMATOCRIT (test code = HCT) 25.9 % 33.0-45.0 L MEAN CELL VOLUME (test code = MCV) 99.6 fL 81.0-99.0 H MEAN CELL HGB (test code = MCH) 31.9 pg 27.0-33.0 N MEAN CELL HGB CONCETRATION (test code = MCHC) 32.0 g/dL 33.0-37. 0 L RED CELL DISTRIBUTION WIDTH CV (test code = RDW) 18.5 % 11.5- 14.5 H RED CELL DISTRIBUTION WIDTH SD (test code = RDW-SD) 64.1 fL 37 .0-54.0 H PLATELET COUNT (test code = PLT) 92 x10 3/uL 150-400 L MEAN PLATELET VOLUME (test code = MPV) 10.0 fL 7.0-9.0 H NEUTROPHIL % (test code = NT%) 47.6 % 56.0-77.0 L IMMATURE GRANULOCYTE % (test code = IG%) 0.4 % 0.0-2.0 N LYMPHOCYTE % (test code = LY%) 26.2 % 14.0-32.0 N MONOCYTE % (test code = MO%) 20.8 % 4.8-9.0 H EOSINOPHIL % (test code = EO%) 4.6 % 0.3-3.7 H BASOPHIL % (test code = BA%) 0.4 % 0.0-2.0 N NUCLEATED RBC % (test code = NRBC%) 0.8 % 0-0 H NEUTROPHIL # (test code = NT#) 1.24 x10 3/uL 2.0-7.6 L IMMATURE GRANULOCYTE # (test code = IG#) 0.01 x10 3/uL 0.00-0.03 N LYMPHOCYTE # (test code = LY#) 0.68 x10 3/uL 1.0-3.8 L MONOCYTE # (test code = MO#) 0.54 x10 3/uL 0.1-0.8 N EOSINOPHIL # (test code = EO#) 0.12 x10 3/uL 0.0-0.2 N BASOPHIL # (test code = BA#) 0.01 x10 3/uL 0.0-0.2 N NUCLEATED RBC # (test code = NRBC#) 0.02 x10 3/uL 0.0-0.1 N MANUAL DIFF REQUIRED (test code = MDIFF) NO SLIDE REVIEWED, CONSISTENT WITH AUTO DIFF. BASIC METABOLIC [id number] 08:35:00* Test Item Value Reference Range Interpretation Comments SODIUM (test code = NA) 138 mEq/L 134-147 N POTASSIUM (test code = K) 4.3 mEq/L 3.4-5.0 N CHLORIDE (test code = CL) 103 mEq/L 100-108 N CARBON DIOXIDE (test code = CO2) 25 mEq/L 21-33 N ANION GAP (test code = GAP) 14 0-20 N GLUCOSE (test code = GLU) 105 mg/dL 70-110 BLOOD UREA NITROGEN (test code = BUN) 28 mg/dL 7-18 H GLOMERULAR FILTRATION RATE (test code = GFR) 9.1 90-95 L Units of measure = ml/min/1.73 m2 CREATININE (test code = CREAT) 4.9 mg/dL 0.6-1.3 H CALCIUM (test code = CA) 8.0 mg/dL 8.0-10.5 N CBC W/AUTO [id number] 08:01:00* Test Item Value Reference Range Interpretation Comments WHITE BLOOD CELL (test code = WBC) 2.60 x10 3/uL 4.5-11.0 L RED BLOOD CELL (test code = RBC) 2.60 x10 6/uL 3.54-5.02 L HEMOGLOBIN (test code = HGB) 8.3 g/dL 11.0-15.0 L HEMATOCRIT (test code = HCT) 25.9 % 33.0-45.0 L MEAN CELL VOLUME (test code = MCV) 99.6 fL 81.0-99.0 H MEAN CELL HGB (test code = MCH) 31.9 pg 27.0-33.0 N MEAN CELL HGB CONCETRATION (test code = MCHC) 32.0 g/dL 33.0-37. 0 L RED CELL DISTRIBUTION WIDTH CV (test code = RDW) 18.5 % 11.5- 14.5 H RED CELL DISTRIBUTION WIDTH SD (test code = RDW-SD) 64.1 fL 37 .0-54.0 H PLATELET COUNT (test code = PLT) 92 x10 3/uL 150-400 L MEAN PLATELET VOLUME (test code = MPV) 10.0 fL 7.0-9.0 H NEUTROPHIL % (test code = NT%) % 56.0-77.0 LYMPHOCYTE % (test code = LY%) % 14.0-32.0 NEUTROPHIL # (test code = NT#) x10 3/uL 2.0-7.6 LYMPHOCYTE # (test code = LY#) x10 3/uL 1.0-3.8 MANUAL DIFF REQUIRED (test code = MDIFF) - US ABDOMEN [id number] 17:08:00 Name: TIA GRANT [facility] : 1960 Age/S: 59 / F [address] [place] [address] Unit #: [id number] Loc: [place] [address] Phys: Fritz Webb MD Acct: [id number] Dis Date: Status: ADM IN PHONE #: [phone] Exam Date: 02/10/2020 1455 FAX #: [phone] Reason: pancytopenia- eval liver and spleen EXAMS: CPT CODE: [id number] US ABDOMEN COMPLETE 60317 PROCEDURE: Abdominal Ultrasound. Clinical Indication: Pancytopenia, anemia, end-stage renal disease. Comparison: CT scan of the abdomen and pelvis 02/07/2016. TECHNIQUE: Grayscale and limited color sonographic evaluation of the abdomen was performed with standard technique. FINDINGS: LIVER: Normal parenchymal echotexture. BILE DUCTS: The intrahepatic and extrahepatic bile ducts are not dilated with the common bile duct measuring 5 mm. GALLBLADDER: Previous cholecystectomy. PANCREAS: The visualized pancreas appears unremarkable. SPLEEN: The spleen is enlarged and measures 16.5 cm. KIDNEYS: The right kidney measures 8.2 cm. The left kidney measures 8.1 cm. The kidneys are somewhat atrophic and demonstrate increased echogenicity. There are 3 right renal simple cysts measuring 7 mm to 12 mm in diameter. AORTA AND INFERIOR VENA CAVA: Visualized portions appear unremarkable. ASCITES: There is no abdominal ascites. IMPRESSION: 1. Previous cholecystectomy. 2. Splenomegaly. PAGE 1 Signed Report (CONTINUED) Name: TAI GRANT [facility] : 1960 Age/S: 59 / F [address] [place] [address] Unit #: [id number] Loc: [place] [address] Phys: Fritz eWbb MD Acct: [id number] Dis Date: Status: ADM IN PHONE #: [phone] Exam D ate: 02/10/20201454 FAX #: [phone] Reason: pancy topenia- eval liver and spleen EXAMS: CPT CODE: [id number] US ABDOMEN COMPLETE 80505 <Continued> 3. Findings consistent with medical renal disease. 4. Right renal simple cysts. SL: OCO-H at 1708 Reported and signed by: Ashish Cisneros M.D. CC: Fritz Webb MD; Jaspreet Jerez MD; Ganesh Vizcarra MD Technologist: Cristine Salazar RDMS(AB)(OB) Trnscb Date/Time: 02/10/2020 (170) [email or web address] Orig Print D/T: S: 02/10/2020 (8910) Probe: PAGE 2 Signed Report - XR KNEE 1 OR 2 V [id number] 15:55:00 FAX: Jaspreet Perea MD [phone] [place]: St: ADM FAX: Ganesh Escobar MD [phone] Name: TAI GRANT [facility] : 1960 Age/S: 59/F [address] [place] [address] Unit #: [id number] Loc: G.6607 [place] [address] Phys: Ganesh Vizcarra MD Acct: [id number] Dis Date: Status: ADM IN PHONE #: [phone] Exam Date: 02/10/2020 1541 FAX #: [phone] Reason: FALLS WITH SHOULDER/BACK/KNEE PAINS EXAMS: CPT CODE: [id number] XR KNEE 1 OR [address] [place] [address] Procedure: Bilateral knee radiographs. Clinical Indication: Bilateral knee pain post fall. Comparison: None. FINDINGS: Radiographs of the knees, 2 views each, show normal alignment without fractures or dislocations. There are surgical clips medial to the left knee. IMPRESSION: 1. No acute osseous abnormality observed. SL: OCO-H at 1555 Reported and signed by: Ashish Cisneros M.D. CC: Jaspreet Jerez MD; Ganesh Vizcarra MD Technologist: GLENN Bustos RT(R) Trnscrd Date/Time/By: 02/10/2020 (5504) : By: [email or web address] Orig Print D/T: S: 02/10/2020 (0208) PAGE 1 Signed Report - XR SHOULDER 2 + V BI 2020-02-10 15:54:00 FAX: Jaspreet Perea MD [phone] [place]: St: ADM FAX: Ganesh Escobar MD [phone] Name: TAI GRANT DARYL [facility] : 1960 Age/S: 59/F [address] [place] [address] Unit #: [id number] Loc: [address] [place] [address] Phys: Ganesh Vizcarra MD Acct: [id number] Dis Date: Status: ADM IN PHONE #: [phone] Exam Date: 02/10/2020 1541 FAX #: [phone] Reason: FALLS WITH SHOULDER/BACK/KNEE PAINS EXAMS: CPT CODE: [id number] XR SHOULDER 2 + [place] [id number] Procedure: Bilateral shoulder radiographs. Clinical Indication: Bilateral shoulder pain post fall. Comparison: None. FINDINGS: Radiographs of the shoulders, 3 views each, show normal alignment without fractures or dislocations. There are no radio-opaque foreign bodies. IMPRESSION: 1. No acute osseous abnormality observed. SL: OCO-H at 3136 Reported and signed by: Ashish Cisneros M.D. CC: Jaspreet Jerez MD; Ganesh Vizcarra MD Technologist: GLENN Bustos RT(R) Trnscrd Date/Time/By: 02/10/2020 (9688) : By: Emma Orig Print D/T: S: 02/10/2020 (0908) PAGE 1 Signed Report - XR L-SPINE 2/3 VIEWS 2020-02-10 15:52:00 FAX: Jaspreet Perea MD [phone] [place]: St: ADM FAX: Ganesh Escobar MD [phone] Name: TAI GRANT [facility] : 1960 Age/S: 59/F [address] [place] [address] Unit #: [id number] Loc: G.6607 [place] [address] Phys: Ganesh Vizcarra MD Acct: [id number] Dis Date: Status: ADM IN PHONE #: [phone] Exam Date: 02/10/2020 1541 FAX #: [phone] Reason: FALLS WITH SHOULDER/BACK/KNEE PAINS EXAMS: CPT CODE: [id number] XR L-SPINE 2/3 VIEWS 08317 Procedure: Lumbar Spine Radiographs. Clinical Indication: Back pain post fall. Comparison: CT scan of the lumbar spine 06/03/2017. FINDINGS: The 3 views of the lumbar spine show degenerative change at all levels including narrowing of the intervertebral disc spaces, marginal osteophyte formation and facet joint hypertrophy. No acute displaced fracture or spondylolisthesis is obse rved. There is vacuum disc phenomenon at L2-3. IMPRESSIO N: 1. Degenerative change. SL: OCO-H at 4872 Reported and signed by: Ashish Cisneros M.D. CC: Jaspreet Jerez MD; Tru Vizcarra MD Technologist: GLENN Bustos RT(R) Trnscrd Date/Time/By: 02/10/2020 (7770) : By: [email or web address] Orig Print D/T: S: 02/10/2020 (5456) PAGE 1 Signed Report [id number] 12:38:00* Test Item Value Reference Range Interpretation Comments GLUBED (test code = GLUBED) 89 MG/DL 70-110 N Performed by certified vibrating screed operator at [facility] [id number] 12:38:00* Test Item Value Reference Range Interpretation Comments GLUBED (test code = GLUBED) 63 MG/DL 70-110 L Performed by certified vibrating screed operator at [facility] [id number] 11:18:00* Test Item Value Reference Range Interpretation Comments GLUBED (test code = GLUBED) 83 MG/DL 70-110 N Performed by certified vibrating screed operator at [facility] CBC W/AUTO [id number] 10:42:00* Test Item Value Reference Range Interpretation Comments WHITE BLOOD CELL (test code = WBC) 3.13 x10 3/uL 4.5-11.0 L RED BLOOD CELL (test code = RBC) 2.38 x10 6/uL 3.54-5.02 L HEMOGLOBIN (test code = HGB) 7.5 g/dL 11.0-15.0 L HEMATOCRIT (test code = HCT) 24.1 % 33.0-45.0 L MEAN CELL VOLUME (test code = MCV) 101.3 fL 81.0-99.0 H MEAN CELL HGB (test code = MCH) 31.5 pg 27.0-33.0 N MEAN CELL HGB CONCETRATION (test code = MCHC) 31.1 g/dL 33.0-37. 0 L RED CELL DISTRIBUTION WIDTH CV (test code = RDW) 18.6 % 11.5- 14.5 H RED CELL DISTRIBUTION WIDTH SD (test code = RDW-SD) 66.1 fL 37 .0-54.0 H PLATELET COUNT (test code = PLT) 86 x10 3/uL 150-400 L MEAN PLATELET VOLUME (test code = MPV) 10.6 fL 7.0-9.0 H MANUAL DIFF REQUIRED (test code = MDIFF) YES WBC [id number] 10:42:00* Test Item Value Reference Range Interpretation Comments SEGMENTED NEUTROPHILS (test code = SEG) 55.0 % 37-69 N BAND NEUTROPHIL (test code = BAND) 0.9 % 0.0-10.0 N LYMPHOCYTE (test code = LYMPH) 23.9 % 23-55 N MONOCYTE (test code = MON) 14.7 % 0-10 H EOSINOPHIL (test code = EOS) 4.6 % 0.0-4.0 H MYELOCYTE (test code = MYELO) 0.9 % 0.0-0.0 H NUCLEATED RED BLOOD CELL (test code = NRBC) 3.7 % POLYCHROMASIA (test code = POLC) 1+ POIKILOCYTOSIS (test code = POIK) 1+ BASOPHILIC STIPPLING (test code = STP) FEW ANISOCYTOSIS (test code = ANISO) 1+ MICROCYTOSIS (test code = MICR) 1+ MACROCYTOSIS (test code = MACR) FEW TEAR DROP CELLS (test code = TEAR) FEW ELLIPTOCYTES (test code = ELL) FEW PLATELET ESTIMATE (test code = PLTEST) 92-115 THOUSAND ADEQUATE CBC W/AUTO [id number] 10:26:00* Test Item Value Reference Range Interpretation Comments WHITE BLOOD CELL (test code = WBC) 3.13 x10 3/uL 4.5-11.0 L RED BLOOD CELL (test code = RBC) 2.38 x10 6/uL 3.54-5.02 L HEMOGLOBIN (test code = HGB) 7.5 g/dL 11.0-15.0 L HEMATOCRIT (test code = HCT) 24.1 % 33.0-45.0 L MEAN CELL VOLUME (test code = MCV) 101.3 fL 81.0-99.0 H MEAN CELL HGB (test code = MCH) 31.5 pg 27.0-33.0 N MEAN CELL HGB CONCETRATION (test code = MCHC) 31.1 g/dL 33.0-37. 0 L RED CELL DISTRIBUTION WIDTH CV (test code = RDW) 18.6 % 11.5- 14.5 H RED CELL DISTRIBUTION WIDTH SD (test code = RDW-SD) 66.1 fL 37 .0-54.0 H PLATELET COUNT (test code = PLT) 86 x10 3/uL 150-400 L MEAN PLATELET VOLUME (test code = MPV) 10.6 fL 7.0-9.0 H MANUAL DIFF REQUIRED (test code = MDIFF) YES WBC [id number] 10:26:00* Test Item Value Reference Range Interpretation Comments ANISOCYTOSIS (test code = ANISO) PLATELET ESTIMATE (test code = PLTEST) THOUSAND ADEQUATE CBC W/AUTO [id number] 10:26:00* Test Item Value Reference Range Interpretation Comments WHITE BLOOD CELL (test code = WBC) 3.13 x10 3/uL 4.5-11.0 L RED BLOOD CELL (test code = RBC) 2.38 x10 6/uL 3.54-5.02 L HEMOGLOBIN (test code = HGB) 7.5 g/dL 11.0-15.0 L HEMATOCRIT (test code = HCT) 24.1 % 33.0-45.0 L MEAN CELL VOLUME (test code = MCV) 101.3 fL 81.0-99.0 H MEAN CELL HGB (test code = MCH) 31.5 pg 27.0-33.0 N MEAN CELL HGB CONCETRATION (test code = MCHC) 31.1 g/dL 33.0-37. 0 L RED CELL DISTRIBUTION WIDTH CV (test code = RDW) 18.6 % 11.5- 14.5 H RED CELL DISTRIBUTION WIDTH SD (test code = RDW-SD) 66.1 fL 37 .0-54.0 H PLATELET COUNT (test code = PLT) 86 x10 3/uL 150-400 L MEAN PLATELET VOLUME (test code = MPV) 10.6 fL 7.0-9.0 H MANUAL DIFF REQUIRED (test code = MDIFF) YES WBC [id number] 10:26:00* Test Item Value Reference Range Interpretation Comments ANISOCYTOSIS (test code = ANISO) PLATELET ESTIMATE (test code = PLTEST) THOUSAND ADEQUATE ACUTE HEPATITIS [id number] 09:26:00* Test Item Value Reference Range Interpretation Comments AB HEPATITIS A IGM (test code = HAVMAB) NON REACTIVE INDEX NON REAC T. AG HEPATITIS B SURFACE (test code = HBSAG) NON REACTIVE INDEX NonRe active AB HEPATITIS B CORE IGM (test code = HBCMAB) NON REACTIVE INDEX NON REACT. AB HEPATITIS C (test code = HCVAB) NON REACTIVE INDEX NON REACT. AB HEPATITIS B [id number] 09:26:00* Test Item Value Reference Range Interpretation Comments AB HEPATITIS B SURFACE (test code = HBSAB) ACUTE HEPATITIS [id number] 09:00:00* Test Item Value Reference Range Interpretation Comments AB HEPATITIS A IGM (test code = HAVMAB) INDEX NON REACT. AG HEPATITIS B SURFACE (test code = HBSAG) NON REACTIVE INDEX NonRe active AB HEPATITIS B CORE IGM (test code = HBCMAB) INDEX NON REACT . AB HEPATITIS C (test code = HCVAB) INDEX NON REACT. AB HEPATITIS B [id number] 09:00:00* Test Item Value Reference Range Interpretation Comments AB HEPATITIS B SURFACE (test code = HBSAB) CBC W/AUTO [id number] 08:22:00* Test Item Value Reference Range Interpretation Comments WHITE BLOOD CELL (test code = WBC) 3.13 x10 3/uL 4.5-11.0 L RED BLOOD CELL (test code = RBC) 2.38 x10 6/uL 3.54-5.02 L HEMOGLOBIN (test code = HGB) 7.5 g/dL 11.0-15.0 L HEMATOCRIT (test code = HCT) 24.1 % 33.0-45.0 L MEAN CELL VOLUME (test code = MCV) 101.3 fL 81.0-99.0 H MEAN CELL HGB (test code = MCH) 31.5 pg 27.0-33.0 N MEAN CELL HGB CONCETRATION (test code = MCHC) 31.1 g/dL 33.0-37. 0 L RED CELL DISTRIBUTION WIDTH CV (test code = RDW) 18.6 % 11.5- 14.5 H RED CELL DISTRIBUTION WIDTH SD (test code = RDW-SD) 66.1 fL 37 .0-54.0 H PLATELET COUNT (test code = PLT) 86 x10 3/uL 150-400 L MEAN PLATELET VOLUME (test code = MPV) 10.6 fL 7.0-9.0 H NEUTROPHIL % (test code = NT%) % 56.0-77.0 LYMPHOCYTE % (test code = LY%) % 14.0-32.0 NEUTROPHIL # (test code = NT#) x10 3/uL 2.0-7.6 LYMPHOCYTE # (test code = LY#) x10 3/uL 1.0-3.8 MANUAL DIFF REQUIRED (test code = IFF) BASIC METABOLIC [id number] 07:47:00* Test Item Value Reference Range Interpretation Comments SODIUM (test code = NA) 139 mEq/L 134-147 N POTASSIUM (test code = K) 4.4 mEq/L 3.4-5.0 CHLORIDE (test code = CL) 104 mEq/L 100-108 N CARBON DIOXIDE (test code = CO2) 25 mEq/L 21-33 N ANION GAP (test code = GAP) 14 0-20 N GLUCOSE (test code = GLU) 69 mg/dL 70-110 L BLOOD UREA NITROGEN (test code = BUN) 15 mg/dL 7-18 GLOMERULAR FILTRATION RATE (test code = GFR) 13.9 90-95 L Units of measure = ml/min/1.73 m2 CREATININE (test code = CREAT) 3.4 mg/dL 0.6-1.3 H CALCIUM (test code = CA) 8.0 mg/dL 8.0-10.5 N LIPID PROFILE (CORONARY RISK)2020-02-10 07:47:00* Test Item Value Reference Range Interpretation Comments TRIGLYCERIDES (test code = TRIG) 158 mg/dL 40-150 H CHOLESTEROL (test code = CHOL) 76 mg/dL <200 CHOLESTEROL/HDL RATIO (test code = CHOLHDL) 2.11 RATIO 3.27-4.44 L RISK ASSOCIATED WITH CHOL/HDL RATIOS: RISK MALE FEMALE1/2 AVERAGE 3.43 3.27AVERAGE 4.97 4.442X AVERAGE 9.55 7.053X AVERAGE 23.39 11.04 NOTE THAT THE REFERENCE VALUE IS RELATEDTO RISK LEVELS RECOMMENDED BY THE NATL.HEART, LUNG, AND BLOOD INST. HDL CHOLESTEROL (test code = HDL) 36.0 mg/dL 39-96 L LIPOPROTEIN LDL (test code = LDL) 23 mg/dL 0-100 N <100 [id number] NEAR OPTIMAL/ABOVE [id number] HIGH>UJ=217 VERY HIGH*Guidelines provided by the National Cholesterol EducationProgram Adult Treatment Panel III [id number] 00:34:00* Test Item Value Reference Range Interpretation Comments GLUBED (test code = GLUBED) 144 MG/DL 70-110 H Performed by certified vibrating screed operator at [facility] - XR FOOT 3 + V [id number] 19:51:00 FAX: Edis Renee DPM [phone] [place]: St: ADM FAX: Jaspreet Perea MD [phone] FAX: Ganesh Escobar MD [phone] Name: TAI GRANT [facility] : 1960 Age/S: 59/F [address] [place] [address] Unit #: [id number] Loc: G.6607 [place] [address] Phys: Edis Leonard DPM Acct: [id number] Dis Date: Status: ADM IN ONE #: [phone] Exam Date: 02/09/2020 1830 FAX #: [phone] Reason: contusion EXAMS: CPT CODE: [id number] XR FOOT 3 + [place] [id number] Three-view jigna ateral feet. INDICATION: Bilateral foot contusion. C omparison: None FINDINGS: Right: A tiny plantar calc aneal spur seen. The joint spaces are maintained. No acute fracture, dis location, or osseous destruction identified. Soft tissue edema may be pre sent in the forefoot. Left: The toes are flexed with superimposed osseous structures limiting evaluation. Small plantar calcaneal spur pres ent. No acute fracture, dislocation, or osseous destruction is seen. Sof t tissue edema suspected. Vascular calcifications present. IMPRESSION: No acute bony findings. SL: SGQuiana at 1950 Reported and signed by: Jacques Bailey M.D. CC: Edis Leonard DPM; Jaspreet Jerez MD; Ganesh Vizcarra MD Technologist: Barby Osborne RT(Asia)(M) Trnscrd Date/Time/By: 02/09/2020 (1950) : By: [email or web address] Orig Print D/T: S: 02/09/2020 (1953) PAGE 1 Signed Report [id number] 18:18:00 * Test Item Value Reference Range Interpretation Comments GLUBED (test code = GLUBED) 85 MG/DL 70-110 N Performed by certified vibrating screed operator at [facility] TOTAL IRON BINDING [id number] 15:33:00* Test Item Value Reference Range Interpretation Comments SERUM IRON (test code = IRON) 50 mcg/dL 35-150 N TOTAL IRON BINDING CAPACITY (test code = TIBC) 222 mcg/dL 260-445 L UIBC (test code = UIBC) 172 mcg/dL IRON SATURATION (test code = FESAT) 22.5 % 14-34 N VITAMIN [id number] 15:33:00* Test Item Value Reference Range Interpretation Comments VITAMIN B12 (test code = VITB12) 611 pg/mL 193-986 N FOLIC [id number] 15:33:00* Test Item Value Reference Range Interpretation Comments FOLIC ACID (test code = FOL) 3.5 ng/mL 3.1-17.5 N TSH REFLEX TO [id number] 15:33:00* Test Item Value Reference Range Interpretation Comments TSH REFLEX TO FT4 (test code = TSHREFLEX) 3.15 IU/mL 0.42-5.47 N [id number] 15:33:00* Test Item Value Reference Range Interpretation Comments FERRITIN (test code = GIO) 1129.9 ng/mL 11.0-306.8 H [id number]%2020-02-09 14:56:00* Test Item Value Reference Range Interpretation Comments HGBA1C% (test code = HGBA1C%) < 3.5 %A1C 4.8-6.0 L CBC W/AUTO [id number] 13:28:00* Test Item Value Reference Range Interpretation Comments WHITE BLOOD CELL (test code = WBC) 1.95 x10 3/uL 4.5-11.0 L RED BLOOD CELL (test code = RBC) 1.79 x10 6/uL 3.54-5.02 L HEMOGLOBIN (test code = HGB) 5.7 g/dL 11.0-15.0 LL HEMATOCRIT (test code = HCT) 18.8 % 33.0-45.0 L MEAN CELL VOLUME (test code = MCV) 105.0 fL 81.0-99.0 H MEAN CELL HGB (test code = MCH) 31.8 pg 27.0-33.0 N MEAN CELL HGB CONCETRATION (test code = MCHC) 30.3 g/dL 33.0-37. 0 L RED CELL DISTRIBUTION WIDTH CV (test code = RDW) 18.5 % 11.5- 14.5 H RED CELL DISTRIBUTION WIDTH SD (test code = RDW-SD) 68.9 fL 37 .0-54.0 H PLATELET COUNT (test code = PLT) 96 x10 3/uL 150-400 L MEAN PLATELET VOLUME (test code = MPV) 10.0 fL 7.0-9.0 H MANUAL DIFF REQUIRED (test code = MDIFF) YES WBC [id number] 13:28:00* Test Item Value Reference Range Interpretation Comments SEGMENTED NEUTROPHILS (test code = SEG) 51.8 % 37-69 N BAND NEUTROPHIL (test code = BAND) 2.8 % 0.0-10.0 N LYMPHOCYTE (test code = LYMPH) 26.9 % 23-55 N MONOCYTE (test code = MON) 11.1 % 0-10 H EOSINOPHIL (test code = EOS) 7.4 % 0.0-4.0 H NUCLEATED RED BLOOD CELL (test code = NRBC) 1.9 % POLYCHROMASIA (test code = POLC) 1+ POIKILOCYTOSIS (test code = POIK) SLIGHT BASOPHILIC STIPPLING (test code = STP) FEW ANISOCYTOSIS (test code = ANISO) 1+ MACROCYTOSIS (test code = MACR) 1+ TEAR DROP CELLS (test code = TEAR) FEW PLATELET ESTIMATE (test code = PLTEST) 100-125 THOUSAND ADEQUATE PLATELET MORPHOLOGY (test code = PLTMORPH) LARGE PLATELETS LARGE PLTS SEEN CBC W/AUTO [id number] 13:21:00* Test Item Value Reference Range Interpretation Comments WHITE BLOOD CELL (test code = WBC) 1.95 x10 3/uL 4.5-11.0 L RED BLOOD CELL (test code = RBC) 1.79 x10 6/uL 3.54-5.02 L HEMOGLOBIN (test code = HGB) 5.7 g/dL 11.0-15.0 LL HEMATOCRIT (test code = HCT) 18.8 % 33.0-45.0 L MEAN CELL VOLUME (test code = MCV) 105.0 fL 81.0-99.0 H MEAN CELL HGB (test code = MCH) 31.8 pg 27.0-33.0 N MEAN CELL HGB CONCETRATION (test code = MCHC) 30.3 g/dL 33.0-37. 0 L RED CELL DISTRIBUTION WIDTH CV (test code = RDW) 18.5 % 11.5- 14.5 H RED CELL DISTRIBUTION WIDTH SD (test code = RDW-SD) 68.9 fL 37 .0-54.0 H PLATELET COUNT (test code = PLT) 96 x10 3/uL 150-400 L MEAN PLATELET VOLUME (test code = MPV) 10.0 fL 7.0-9.0 H MANUAL DIFF REQUIRED (test code = MDIFF) YES WBC [id number] 13:21:00* Test Item Value Reference Range Interpretation Comments ANISOCYTOSIS (test code = ANISO) PLATELET ESTIMATE (test code = PLTEST) THOUSAND ADEQUATE CBC W/AUTO [id number] 13:21:00* Test Item Value Reference Range Interpretation Comments WHITE BLOOD CELL (test code = WBC) 1.95 x10 3/uL 4.5-11.0 L RED BLOOD CELL (test code = RBC) 1.79 x10 6/uL 3.54-5.02 L HEMOGLOBIN (test code = HGB) 5.7 g/dL 11.0-15.0 LL HEMATOCRIT (test code = HCT) 18.8 % 33.0-45.0 L MEAN CELL VOLUME (test code = MCV) 105.0 fL 81.0-99.0 H MEAN CELL HGB (test code = MCH) 31.8 pg 27.0-33.0 N MEAN CELL HGB CONCETRATION (test code = MCHC) 30.3 g/dL 33.0-37. 0 L RED CELL DISTRIBUTION WIDTH CV (test code = RDW) 18.5 % 11.5- 14.5 H RED CELL DISTRIBUTION WIDTH SD (test code = RDW-SD) 68.9 fL 37 .0-54.0 H PLATELET COUNT (test code = PLT) 96 x10 3/uL 150-400 L MEAN PLATELET VOLUME (test code = MPV) 10.0 fL 7.0-9.0 H MANUAL DIFF REQUIRED (test code = MDIFF) YES WBC [id number] 13:21:00* Test Item Value Reference Range Interpretation Comments ANISOCYTOSIS (test code = ANISO) PLATELET ESTIMATE (test code = PLTEST) THOUSAND ADEQUATE BASIC METABOLIC [id number] 12:10:00* Test Item Value Reference Range Interpretation Comments SODIUM (test code = NA) 137 mEq/L 134-147 N POTASSIUM (test code = K) 3.2 mEq/L 3.4-5.0 L CHLORIDE (test code = CL) 102 mEq/L 100-108 N CARBON DIOXIDE (test code = CO2) 31 mEq/L 21-33 N ANION GAP (test code = GAP) 7 0-20 N GLUCOSE (test code = GLU) 83 mg/dL 70-110 N BLOOD UREA NITROGEN (test code = BUN) 9 mg/dL 7-18 N GLOMERULAR FILTRATION RATE (test code = GFR) 23.0 90-95 L Units of measure = ml/min/1.73 m2 CREATININE (test code = CREAT) 2.2 mg/dL 0.6-1.3 H CALCIUM (test code = CA) 8.5 mg/dL 8.0-10.5 N CBC W/AUTO [id number] 11:54:00* Test Item Value Reference Range Interpretation Comments WHITE BLOOD CELL (test code = WBC) 1.95 x10 3/uL 4.5-11.0 L RED BLOOD CELL (test code = RBC) 1.79 x10 6/uL 3.54-5.02 L HEMOGLOBIN (test code = HGB) 5.7 g/dL 11.0-15.0 LL HEMATOCRIT (test code = HCT) 18.8 % 33.0-45.0 L MEAN CELL VOLUME (test code = MCV) 105.0 fL 81.0-99.0 H MEAN CELL HGB (test code = MCH) 31.8 pg 27.0-33.0 N MEAN CELL HGB CONCETRATION (test code = MCHC) 30.3 g/dL 33.0-37. 0 L RED CELL DISTRIBUTION WIDTH CV (test code = RDW) 18.5 % 11.5- 14.5 H RED CELL DISTRIBUTION WIDTH SD (test code = RDW-SD) 68.9 fL 37 .0-54.0 H PLATELET COUNT (test code = PLT) 96 x10 3/uL 150-400 L MEAN PLATELET VOLUME (test code = MPV) 10.0 fL 7.0-9.0 H NEUTROPHIL % (test code = NT%) % 56.0-77.0 LYMPHOCYTE % (test code = LY%) % 14.0-32.0 NEUTROPHIL # (test code = NT#) x10 3/uL 2.0-7.6 LYMPHOCYTE # (test code = LY#) x10 3/uL 1.0-3.8 MANUAL DIFF REQUIRED (test code = MDIFF) - XR CHEST 1 [id number] 11:40:00 FAX: Lacy Thompson NP [phone] [place]: St: PRE FAX: Jaspreet Perea MD [phone] Name: TAI GRANT [facility] : 1960 Age/S: 59/F [address] [place] [address] Unit #: [id number] Loc: [address] [address] Phys: Lacy Thompson NP Acct: [id number] Dis Date: Status: PRE ER PHONE #: [phone] Exam Date: 02/09/2020 1128 FAX #: [phone] Reason: back pain EXAMS: CPT CODE: [id number] XR CHEST 1 V [id number] Study: - XR CHEST 1 V 02/09/2020 11:19 AM Patient Name: TAI GRANT MR: [id number] : 1960; Age: 59 years y/o Female Ordering Physician: Lacy Thompson NP Clinical Indication: back pain Comparison: November 28, 2019 x-ray FINDINGS LUNGS: The lungs are clear of consolidation, pleural effusion, and pneumothorax. HEART AND MEDIASTINUM: Mildly enlarged heart. LINES: None. OSSEOUS STRUCTURES: Mild spinal degenerative change without fracture, dislocation, or focal osseous lesion. OTHER: None. IMPRESSION: No acute abnormality as above discussed. SL: [id number] at 1140 Reported and signed by: Adam Andersen M.D. CC: Lacy Thompson MANAGER FAMILY; Jaspreet Jerez MD Lucita hnologist: Ren Herron RT(R) Trnscrd Date/T meenakshi/By: 02/09/2020 (9014) : By: [email or web address] Orig Print D/T: S: 0 (4096) PAGE 1 Signed Report - XR CHEST 2 [id number] 09:20:00 FAX: Jaspreet Perea MD [phone] [place]: O St: REG Name: TAI MANLEY [facility] : [birth year] Age/S: 59/F [address] [facility] Unit #: [id number] Loc: [place] [address] Phys: Jaspreet Jerez MD Acct: [id number] Dis Date: Status: REG CLI PHONE #: [phone] Exam Date: 11/28/2019 09 FAX #: [phone] Reason: PNEUMONIA F/U EXAMS: CPT CODE: [id number] XR CHEST 2 V [id number] REASON FOR EXAM: PNEUMONIA F/U Exam Order Date: 11/28/2019 8:54 AM Ordering Fauzia: Jaspreet Jerez MD PROCEDURE: - XR CHEST 2 V CO MPARISON: Chest x-ray November 02, 2019 FINDINGS: The lungs are clear other than mild subsegmental atelectasis in the middle lobe and lingula. There is no pleural effusion or pneumothorax. Pulmonary vascular ity is within normal limits. Cardiomediastinal silhouette is claudine l in size for technique. The mediastinal contours are within normal limits . There are degenerative changes in the spine. The v isualized upper abdomen is within normal limits. IMPRESS ION: No acute cardiopulmonary process. Location: [facility] at 0920 Reported and signed by: Bacilio Hua MD CC: Bautista Jerez MD Technologist: WENDY PEDERSEN LORRAINE RT (R) Trnscrd Date/Time/By: 11/28/2019 (919) : By : [email or web address] Orig Print D/T: S: 11/28/2019 (6300) PAGE 1 Signed Report [id number] 15:48:00* Test Item Value Reference Range Interpretation Comments GLUBED (test code = GLUBED) 129 mg/dL 74-106 H Performed by certified vibrating screed operator at [facility] BASIC METABOLIC [id number] 03:54:00* Test Item Value Reference Range Interpretation Comments SODIUM (test code = NA) 143 mmol/L 136-145 N POTASSIUM (test code = K) 3.3 mmol/L 3.5-5.1 L CHLORIDE (test code = CL) 103.0 mmol/L 98-107 N CARBON DIOXIDE (test code = CO2) 29.0 mmol/L 21-32 N ANION GAP (test code = GAP) 14.3 10-20 N GLUCOSE (test code = GLU) 86 mg/dL 74-106 N BLOOD UREA NITROGEN (test code = BUN) 23 mg/dL 7-18 H GLOMERULAR FILTRATION RATE (test code = GFR) 8 mL/min >=60 Estimated GFR by using Modified MDRD formula.Chronic kidney disease is defined as either kidney damageor GFR <60 mL/min/1.73 m2 for >3 months. CREATININE (test code = CREAT) 5.50 mg/dL 0.55-1.02 H Note change in reference range due to change in reagent. BUN/CREATININE RATIO (test code = BUN/CREA) 4.2 10-20 L CALCIUM (test code = CA) 7.9 mg/dL 8.5-10.1 L [id number] 03:54:00* Test Item Value Reference Range Interpretation Comments PHOSPHORUS (test code = PHOS) 5.9 mg/dL 2.5-4.9 H [id number] 03:54:00* Test Item Value Reference Range Interpretation Comments MAGNESIUM (test code = MAG) 2.1 mg/dL 1.8-2.4 N CBC W/AUTO [id number] 03:12:00* Test Item Value Reference Range Interpretation Comments WHITE BLOOD CELL (test code = WBC) 4.9 K/mm3 4.5-12.5 N RED BLOOD CELL (test code = RBC) 2.98 mill/mm3 3.7-5.2 L HEMOGLOBIN (test code = HGB) 9.4 gram/dL 11.5-15.5 L HEMATOCRIT (test code = HCT) 31.5 % 36.0-46.0 L MEAN CELL VOLUME (test code = MCV) 105.7 fL 80-98 H MEAN CELL HGB (test code = MCH) 31.5 picogram 27.0-33.0 N MEAN CELL HGB CONCETRATION (test code = MCHC) 29.8 gram/dL 33.0-36. 0 L RED CELL DISTRIBUTION WIDTH (test code = RDW) 16.6 % 11.6-16. 2 H RED CELL DISTRIBUTION WIDTH SD (test code = RDW-SD) 64.6 fL 37 .0-51.0 H PLATELET COUNT (test code = PLT) 171 K/mm3 150-450 N MEAN PLATELET VOLUME (test code = MPV) 9.7 fL 6.7-11.0 N NEUTROPHIL % (test code = NT%) 50.7 % 39.0-69.0 N IMMATURE GRANULOCYTE % (test code = IG%) 0.6 % 0.0-5.0 N LYMPHOCYTE % (test code = LY%) 16.1 % 25.0-55.0 L MONOCYTE % (test code = MO%) 11.0 % 0.0-10.0 H EOSINOPHIL % (test code = EO%) 21.2 % 0.0-5.0 H BASOPHIL % (test code = BA%) 0.4 % 0.0-1.0 N NUCLEATED RBC % (test code = NRBC%) 0.0 % 0-0 N NEUTROPHIL # (test code = NT#) 2.48 K/mm3 1.8-7.7 N IMMATURE GRANULOCYTE # (test code = IG#) 0.03 x10 3/uL 0-0.03 N LYMPHOCYTE # (test code = LY#) 0.79 K/mm3 1.0-5.0 L MONOCYTE # (test code = MO#) 0.54 K/mm3 0-0.8 N EOSINOPHIL # (test code = EO#) 1.04 K/mm3 0.0-0.5 H BASOPHIL # (test code = BA#) 0.02 K/mm3 0.0-0.2 N NUCLEATED RBC # (test code = NRBC#) 0.00 K/mm3 0.0-0.1 N MANUAL DIFF REQUIRED (test code = MDIFF) NO, ONLY SCAN NEEDED DIFFERENTIAL [id number] 03:12:00* Test Item Value Reference Range Interpretation Comments STAIN ACCEPTABILITY (test code = STN ACCEPTABLE) STAIN ACCEPTABLE POIKILOCYTOSIS (test code = POIK) 1+ ANISOCYTOSIS (test code = ANISO) 1+ MICROCYTOSIS (test code = MICR) 1+ TEAR DROP CELLS (test code = TEAR) 1+ PLATELET ESTIMATE (test code = PLTEST) ADEQUATE PLATELET MORPHOLOGY (test code = PLTMORPH) NORMAL CBC W/AUTO [id number] 01:53:00* Test Item Value Reference Range Interpretation Comments WHITE BLOOD CELL (test code = WBC) 4.9 K/mm3 4.5-12.5 N RED BLOOD CELL (test code = RBC) 2.98 mill/mm3 3.7-5.2 L HEMOGLOBIN (test code = HGB) 9.4 gram/dL 11.5-15.5 L HEMATOCRIT (test code = HCT) 31.5 % 36.0-46.0 L MEAN CELL VOLUME (test code = MCV) 105.7 fL 80-98 H MEAN CELL HGB (test code = MCH) 31.5 picogram 27.0-33.0 N MEAN CELL HGB CONCETRATION (test code = MCHC) 29.8 gram/dL 33.0-36. 0 L RED CELL DISTRIBUTION WIDTH (test code = RDW) 16.6 % 11.6-16. 2 H RED CELL DISTRIBUTION WIDTH SD (test code = RDW-SD) 64.6 fL 37 .0-51.0 H PLATELET COUNT (test code = PLT) 171 K/mm3 150-450 N MEAN PLATELET VOLUME (test code = MPV) 9.7 fL 6.7-11.0 N NEUTROPHIL % (test code = NT%) 50.7 % 39.0-69.0 N IMMATURE GRANULOCYTE % (test code = IG%) 0.6 % 0.0-5.0 N LYMPHOCYTE % (test code = LY%) 16.1 % 25.0-55.0 L MONOCYTE % (test code = MO%) 11.0 % 0.0-10.0 H EOSINOPHIL % (test code = EO%) 21.2 % 0.0-5.0 H BASOPHIL % (test code = BA%) 0.4 % 0.0-1.0 N NUCLEATED RBC % (test code = NRBC%) 0.0 % 0-0 N NEUTROPHIL # (test code = NT#) 2.48 K/mm3 1.8-7.7 N IMMATURE GRANULOCYTE # (test code = IG#) 0.03 x10 3/uL 0-0.03 N LYMPHOCYTE # (test code = LY#) 0.79 K/mm3 1.0-5.0 L MONOCYTE # (test code = MO#) 0.54 K/mm3 0-0.8 N EOSINOPHIL # (test code = EO#) 1.04 K/mm3 0.0-0.5 H BASOPHIL # (test code = BA#) 0.02 K/mm3 0.0-0.2 N NUCLEATED RBC # (test code = NRBC#) 0.00 K/mm3 0.0-0.1 N MANUAL DIFF REQUIRED (test code = MDIFF) NO, ONLY SCAN NEEDED DIFFERENTIAL [id number] 01:53:00* Test Item Value Reference Range Interpretation Comments STAIN ACCEPTABILITY (test code = STN ACCEPTABLE) CABOT RINGS (test code = CAB) MORPHOLOGY COMMENT (test code = MOC) PLATELET ESTIMATE (test code = PLTEST) PLATELET MORPHOLOGY (test code = PLTMORPH) CBC W/AUTO [id number] 01:53:00* Test Item Value Reference Range Interpretation Comments WHITE BLOOD CELL (test code = WBC) 4.9 K/mm3 4.5-12.5 N RED BLOOD CELL (test code = RBC) 2.98 mill/mm3 3.7-5.2 L HEMOGLOBIN (test code = HGB) 9.4 gram/dL 11.5-15.5 L HEMATOCRIT (test code = HCT) 31.5 % 36.0-46.0 L MEAN CELL VOLUME (test code = MCV) 105.7 fL 80-98 H MEAN CELL HGB (test code = MCH) 31.5 picogram 27.0-33.0 N MEAN CELL HGB CONCETRATION (test code = MCHC) 29.8 gram/dL 33.0-36. 0 L RED CELL DISTRIBUTION WIDTH (test code = RDW) 16.6 % 11.6-16. 2 H RED CELL DISTRIBUTION WIDTH SD (test code = RDW-SD) 64.6 fL 37 .0-51.0 H PLATELET COUNT (test code = PLT) 171 K/mm3 150-450 N MEAN PLATELET VOLUME (test code = MPV) 9.7 fL 6.7-11.0 N NEUTROPHIL % (test code = NT%) 50.7 % 39.0-69.0 N IMMATURE GRANULOCYTE % (test code = IG%) 0.6 % 0.0-5.0 N LYMPHOCYTE % (test code = LY%) 16.1 % 25.0-55.0 L MONOCYTE % (test code = MO%) 11.0 % 0.0-10.0 H EOSINOPHIL % (test code = EO%) 21.2 % 0.0-5.0 H BASOPHIL % (test code = BA%) 0.4 % 0.0-1.0 N NUCLEATED RBC % (test code = NRBC%) 0.0 % 0-0 N NEUTROPHIL # (test code = NT#) 2.48 K/mm3 1.8-7.7 N IMMATURE GRANULOCYTE # (test code = IG#) 0.03 x10 3/uL 0-0.03 N LYMPHOCYTE # (test code = LY#) 0.79 K/mm3 1.0-5.0 L MONOCYTE # (test code = MO#) 0.54 K/mm3 0-0.8 N EOSINOPHIL # (test code = EO#) 1.04 K/mm3 0.0-0.5 H BASOPHIL # (test code = BA#) 0.02 K/mm3 0.0-0.2 N NUCLEATED RBC # (test code = NRBC#) 0.00 K/mm3 0.0-0.1 N MANUAL DIFF REQUIRED (test code = MDIFF) NO, ONLY SCAN NEEDED DIFFERENTIAL [id number] 01:53:00* Test Item Value Reference Range Interpretation Comments STAIN ACCEPTABILITY (test code = STN ACCEPTABLE) MORPHOLOGY COMMENT (test code = MOC) PLATELET ESTIMATE (test code = PLTEST) PLATELET MORPHOLOGY (test code = PLTMORPH) CBC W/AUTO [id number] 01:52:00* Test Item Value Reference Range Interpretation Comments WHITE BLOOD CELL (test code = WBC) 4.9 K/mm3 4.5-12.5 N RED BLOOD CELL (test code = RBC) 2.98 mill/mm3 3.7-5.2 L HEMOGLOBIN (test code = HGB) 9.4 gram/dL 11.5-15.5 L HEMATOCRIT (test code = HCT) 31.5 % 36.0-46.0 L MEAN CELL VOLUME (test code = MCV) 105.7 fL 80-98 H MEAN CELL HGB (test code = MCH) 31.5 picogram 27.0-33.0 N MEAN CELL HGB CONCETRATION (test code = MCHC) 29.8 gram/dL 33.0-36. 0 L RED CELL DISTRIBUTION WIDTH (test code = RDW) 16.6 % 11.6-16. 2 H RED CELL DISTRIBUTION WIDTH SD (test code = RDW-SD) 64.6 fL 37 .0-51.0 H PLATELET COUNT (test code = PLT) 171 K/mm3 150-450 N MEAN PLATELET VOLUME (test code = MPV) 9.7 fL 6.7-11.0 N NEUTROPHIL % (test code = NT%) 50.7 % 39.0-69.0 N IMMATURE GRANULOCYTE % (test code = IG%) 0.6 % 0.0-5.0 N LYMPHOCYTE % (test code = LY%) 16.1 % 25.0-55.0 L MONOCYTE % (test code = MO%) 11.0 % 0.0-10.0 H EOSINOPHIL % (test code = EO%) 21.2 % 0.0-5.0 H BASOPHIL % (test code = BA%) 0.4 % 0.0-1.0 N NUCLEATED RBC % (test code = NRBC%) 0.0 % 0-0 N NEUTROPHIL # (test code = NT#) 2.48 K/mm3 1.8-7.7 N IMMATURE GRANULOCYTE # (test code = IG#) 0.03 x10 3/uL 0-0.03 N LYMPHOCYTE # (test code = LY#) 0.79 K/mm3 1.0-5.0 L MONOCYTE # (test code = MO#) 0.54 K/mm3 0-0.8 N EOSINOPHIL # (test code = EO#) 1.04 K/mm3 0.0-0.5 H BASOPHIL # (test code = BA#) 0.02 K/mm3 0.0-0.2 N NUCLEATED RBC # (test code = NRBC#) 0.00 K/mm3 0.0-0.1 N MANUAL DIFF REQUIRED (test code = MDIFF) NO, ONLY SCAN NEEDED DIFFERENTIAL [id number] 01:52:00* Test Item Value Reference Range Interpretation Comments STAIN ACCEPTABILITY (test code = STN ACCEPTABLE) CABOT RINGS (test code = CAB) MORPHOLOGY COMMENT (test code = MOC) PLATELET ESTIMATE (test code = PLTEST) PLATELET MORPHOLOGY (test code = PLTMORPH) CBC W/AUTO [id number] 01:52:00* Test Item Value Reference Range Interpretation Comments WHITE BLOOD CELL (test code = WBC) 4.9 K/mm3 4.5-12.5 N RED BLOOD CELL (test code = RBC) 2.98 mill/mm3 3.7-5.2 L HEMOGLOBIN (test code = HGB) 9.4 gram/dL 11.5-15.5 L HEMATOCRIT (test code = HCT) 31.5 % 36.0-46.0 L MEAN CELL VOLUME (test code = MCV) 105.7 fL 80-98 H MEAN CELL HGB (test code = MCH) 31.5 picogram 27.0-33.0 N MEAN CELL HGB CONCETRATION (test code = MCHC) 29.8 gram/dL 33.0-36. 0 L RED CELL DISTRIBUTION WIDTH (test code = RDW) 16.6 % 11.6-16. 2 H RED CELL DISTRIBUTION WIDTH SD (test code = RDW-SD) 64.6 fL 37 .0-51.0 H PLATELET COUNT (test code = PLT) 171 K/mm3 150-450 N MEAN PLATELET VOLUME (test code = MPV) 9.7 fL 6.7-11.0 N NEUTROPHIL % (test code = NT%) 50.7 % 39.0-69.0 N IMMATURE GRANULOCYTE % (test code = IG%) 0.6 % 0.0-5.0 N LYMPHOCYTE % (test code = LY%) 16.1 % 25.0-55.0 L MONOCYTE % (test code = MO%) 11.0 % 0.0-10.0 H EOSINOPHIL % (test code = EO%) 21.2 % 0.0-5.0 H BASOPHIL % (test code = BA%) 0.4 % 0.0-1.0 N NUCLEATED RBC % (test code = NRBC%) 0.0 % 0-0 N NEUTROPHIL # (test code = NT#) 2.48 K/mm3 1.8-7.7 N IMMATURE GRANULOCYTE # (test code = IG#) 0.03 x10 3/uL 0-0.03 N LYMPHOCYTE # (test code = LY#) 0.79 K/mm3 1.0-5.0 L MONOCYTE # (test code = MO#) 0.54 K/mm3 0-0.8 N EOSINOPHIL # (test code = EO#) 1.04 K/mm3 0.0-0.5 H BASOPHIL # (test code = BA#) 0.02 K/mm3 0.0-0.2 N NUCLEATED RBC # (test code = NRBC#) 0.00 K/mm3 0.0-0.1 N MANUAL DIFF REQUIRED (test code = MDIFF) NO, ONLY SCAN NEEDED DIFFERENTIAL [id number] 01:52:00* Test Item Value Reference Range Interpretation Comments STAIN ACCEPTABILITY (test code = STN ACCEPTABLE) CABOT RINGS (test code = CAB) MORPHOLOGY COMMENT (test code = MOC) PLATELET ESTIMATE (test code = PLTEST) PLATELET MORPHOLOGY (test code = PLTMORPH) [id number] 20:54:00* Test Item Value Reference Range Interpretation Comments GLUBED (test code = GLUBED) 150 mg/dL 74-106 H Performed by certified vibrating screed operator at [facility] [id number] 17:05:00* Test Item Value Reference Range Interpretation Comments GLUBED (test code = GLUBED) 111 mg/dL 74-106 H Performed by certified vibrating screed operator at [facility] - XR CHEST 1 [id number] 14:44:00 FAX: Haley Acuña NP [phone] [place]: [address] St: ADM FAX: Ciara Gibbs MD FAX: Jaspreet Perea MD [phone] Name: TAI GRANT [facility] : 1960 Age/S: 59/F [address] [facility] Unit #: [id number] Loc: V.2079 [place] [address] Phys: Haley Acuña NP Acct: [id number] Dis Date: Status: ADM IN ONE #: [phone] Exam Date: 11/02/2019 1431 FAX #: [phone] Reason: sob EXAMS: CPT CODE: [id number] XR CHEST 1 V 68685 REASON FOR EXAM: sob EXAM ORDER DATE: 11/02/2019 5:00 AM Ord ering: Haley Acuña NP Attending:Ciara Marino MD Location:[facility] PROCEDURE: - XR CHEST 1 V COMPARISON: 11/01/2019 FINDINGS: Portable AP frontal view of the chest obtained at 2:31 PM shows clear lungs without evidence of consolidation. There is no evidence of effusion. The heart size is minimally enlarged. Pulmonary vasculatures are unremarkable. IMPRESSION: Resolution of the congestive he art failure. at 0847 Reported and signed by: Jasper Blevins M.D. CC: Haley Acuña NP; Ciara Marino MD; Jaspreet Jerez MD Technologist: Wilfred Acosta(R); Mariel Newell RT(R) Trnscrd Date/Time/By: 06/2020 (8130) : By: [place] Orig Print D/T: S: 11/02/2019 (2687) PAGE 1 Signed Report [id number] 12:31:00* Test Item Value Reference Range Interpretation Comments GLUBED (test code = GLUBED) 101 mg/dL 74-106 N Performed by certified vibrating screed operator at [facility] [id number] 06:41:00* Test Item Value Reference Range Interpretation Comments GLUBED (test code = GLUBED) 114 mg/dL 74-106 H [facility]~ BASIC METABOLIC [id number] 06:16:00* Test Item Value Reference Range Interpretation Comments SODIUM (test code = NA) 140 mmol/L 136-145 N POTASSIUM (test code = K) 3.5 mmol/L 3.5-5.1 N CHLORIDE (test code = CL) 101.0 mmol/L 98-107 N CARBON DIOXIDE (test code = CO2) 30.0 mmol/L 21-32 N ANION GAP (test code = GAP) 12.5 10-20 N GLUCOSE (test code = GLU) 102 mg/dL 74-106 N BLOOD UREA NITROGEN (test code = BUN) 11 mg/dL 7-18 N GLOMERULAR FILTRATION RATE (test code = GFR) 13 mL/min >=60 Estimated GFR by using Modified MDRD formula.Chronic kidney disease is defined as either kidney damageor GFR <60 mL/min/1.73 m2 for >3 months. CREATININE (test code = CREAT) 3.70 mg/dL 0.55-1.02 H Note change in reference range due to change in reagent. BUN/CREATININE RATIO (test code = BUN/CREA) 3.0 10-20 L CALCIUM (test code = CA) 8.4 mg/dL 8.5-10.1 L BASIC METABOLIC [id number] 06:08:00* Test Item Value Reference Range Interpretation Comments SODIUM (test code = NA) 140 mmol/L 136-145 N POTASSIUM (test code = K) 3.5 mmol/L 3.5-5.1 N CHLORIDE (test code = CL) 101.0 mmol/L 98-107 N CARBON DIOXIDE (test code = CO2) mmol/L 21-32 ANION GAP (test code = GAP) 10-20 GLUCOSE (test code = GLU) mg/dL 74-106 BLOOD UREA NITROGEN (test code = BUN) mg/dL 7-18 GLOMERULAR FILTRATION RATE (test code = GFR) mL/min >=60 CREATININE (test code = CREAT) mg/dL 0.55-1.02 BUN/CREATININE RATIO (test code = BUN/CREA) 10-20 CALCIUM (test code = CA) mg/dL 8.5-10.1 CBC W/AUTO [id number] 02:50:00* Test Item Value Reference Range Interpretation Comments WHITE BLOOD CELL (test code = WBC) 5.3 K/mm3 4.5-12.5 N RED BLOOD CELL (test code = RBC) 2.98 mill/mm3 3.7-5.2 L HEMOGLOBIN (test code = HGB) 9.3 gram/dL 11.5-15.5 L HEMATOCRIT (test code = HCT) 32.1 % 36.0-46.0 L MEAN CELL VOLUME (test code = MCV) 107.7 fL 80-98 H MEAN CELL HGB (test code = MCH) 31.2 picogram 27.0-33.0 N MEAN CELL HGB CONCETRATION (test code = MCHC) 29.0 gram/dL 33.0-36. 0 L RED CELL DISTRIBUTION WIDTH (test code = RDW) 16.5 % 11.6-16. 2 H RED CELL DISTRIBUTION WIDTH SD (test code = RDW-SD) 65.6 fL 37 .0-51.0 H PLATELET COUNT (test code = PLT) 162 K/mm3 150-450 N MEAN PLATELET VOLUME (test code = MPV) 9.7 fL 6.7-11.0 N NEUTROPHIL % (test code = NT%) 58.0 % 39.0-69.0 N IMMATURE GRANULOCYTE % (test code = IG%) 0.6 % 0.0-5.0 N LYMPHOCYTE % (test code = LY%) 11.3 % 25.0-55.0 L MONOCYTE % (test code = MO%) 11.7 % 0.0-10.0 H EOSINOPHIL % (test code = EO%) 18.0 % 0.0-5.0 H BASOPHIL % (test code = BA%) 0.4 % 0.0-1.0 N NUCLEATED RBC % (test code = NRBC%) 0.0 % 0-0 N NEUTROPHIL # (test code = NT#) 3.09 K/mm3 1.8-7.7 N IMMATURE GRANULOCYTE # (test code = IG#) 0.03 x10 3/uL 0-0.03 N LYMPHOCYTE # (test code = LY#) 0.60 K/mm3 1.0-5.0 L MONOCYTE # (test code = MO#) 0.62 K/mm3 0-0.8 N EOSINOPHIL # (test code = EO#) 0.96 K/mm3 0.0-0.5 H BASOPHIL # (test code = BA#) 0.02 K/mm3 0.0-0.2 N NUCLEATED RBC # (test code = NRBC#) 0.00 K/mm3 0.0-0.1 N MANUAL DIFF REQUIRED (test code = MDIFF) NO, ONLY SCAN NEEDED DIFFERENTIAL [id number] 02:50:00* Test Item Value Reference Range Interpretation Comments STAIN ACCEPTABILITY (test code = STN ACCEPTABLE) STAIN ACCEPTABLE POLYCHROMASIA (test code = POLC) 1+ POIKILOCYTOSIS (test code = POIK) 1+ TEAR DROP CELLS (test code = TEAR) 1+ PLATELET ESTIMATE (test code = PLTEST) ADEQUATE PLATELET MORPHOLOGY (test code = PLTMORPH) NORMAL BASIC METABOLIC [id number] 02:15:00* Test Item Value Reference Range Interpretation Comments SODIUM (test code = NA) 140 mmol/L 136-145 N POTASSIUM (test code = K) 3.6 mmol/L 3.5-5.1 N CHLORIDE (test code = CL) 101.0 mmol/L 98-107 N CARBON DIOXIDE (test code = CO2) 30.0 mmol/L 21-32 N ANION GAP (test code = GAP) 12.6 10-20 N GLUCOSE (test code = GLU) 106 mg/dL 74-106 N BLOOD UREA NITROGEN (test code = BUN) 9 mg/dL 7-18 RESULT VERIFIED BY REPEAT ANALYSIS GLOMERULAR FILTRATION RATE (test code = GFR) 14 mL/min >=60 Estimated GFR by using Modified MDRD formula.Chronic kidney disease is defined as either kidney damageor GFR <60 mL/min/1.73 m2 for >3 months. CREATININE (test code = CREAT) 3.30 mg/dL 0.55-1.02 H Note change in reference range due to change in reagent. BUN/CREATININE RATIO (test code = BUN/CREA) 2.7 10-20 L CALCIUM (test code = CA) 8.2 mg/dL 8.5-10.1 L [id number] 02:15:00* Test Item Value Reference Range Interpretation Comments PHOSPHORUS (test code = PHOS) 3.9 mg/dL 2.5-4.9 N [id number] 02:15:00* Test Item Value Reference Range Interpretation Comments MAGNESIUM (test code = MAG) 1.8 mg/dL 1.8-2.4 N CBC W/AUTO [id number] 01:31:00* Test Item Value Reference Range Interpretation Comments WHITE BLOOD CELL (test code = WBC) 5.3 K/mm3 4.5-12.5 N RED BLOOD CELL (test code = RBC) 2.98 mill/mm3 3.7-5.2 L HEMOGLOBIN (test code = HGB) 9.3 gram/dL 11.5-15.5 L HEMATOCRIT (test code = HCT) 32.1 % 36.0-46.0 L MEAN CELL VOLUME (test code = MCV) 107.7 fL 80-98 H MEAN CELL HGB (test code = MCH) 31.2 picogram 27.0-33.0 N MEAN CELL HGB CONCETRATION (test code = MCHC) 29.0 gram/dL 33.0-36. 0 L RED CELL DISTRIBUTION WIDTH (test code = RDW) 16.5 % 11.6-16. 2 H RED CELL DISTRIBUTION WIDTH SD (test code = RDW-SD) 65.6 fL 37 .0-51.0 H PLATELET COUNT (test code = PLT) 162 K/mm3 150-450 N MEAN PLATELET VOLUME (test code = MPV) 9.7 fL 6.7-11.0 N NEUTROPHIL % (test code = NT%) 58.0 % 39.0-69.0 N IMMATURE GRANULOCYTE % (test code = IG%) 0.6 % 0.0-5.0 N LYMPHOCYTE % (test code = LY%) 11.3 % 25.0-55.0 L MONOCYTE % (test code = MO%) 11.7 % 0.0-10.0 H EOSINOPHIL % (test code = EO%) 18.0 % 0.0-5.0 H BASOPHIL % (test code = BA%) 0.4 % 0.0-1.0 N NUCLEATED RBC % (test code = NRBC%) 0.0 % 0-0 N NEUTROPHIL # (test code = NT#) 3.09 K/mm3 1.8-7.7 N IMMATURE GRANULOCYTE # (test code = IG#) 0.03 x10 3/uL 0-0.03 N LYMPHOCYTE # (test code = LY#) 0.60 K/mm3 1.0-5.0 L MONOCYTE # (test code = MO#) 0.62 K/mm3 0-0.8 N EOSINOPHIL # (test code = EO#) 0.96 K/mm3 0.0-0.5 H BASOPHIL # (test code = BA#) 0.02 K/mm3 0.0-0.2 N NUCLEATED RBC # (test code = NRBC#) 0.00 K/mm3 0.0-0.1 N MANUAL DIFF REQUIRED (test code = MDIFF) NO, ONLY SCAN NEEDED DIFFERENTIAL [id number] 01:31:00* Test Item Value Reference Range Interpretation Comments STAIN ACCEPTABILITY (test code = STN ACCEPTABLE) CABOT RINGS (test code = CAB) MORPHOLOGY COMMENT (test code = MOC) PLATELET ESTIMATE (test code = PLTEST) PLATELET MORPHOLOGY (test code = PLTMORPH) CBC W/AUTO [id number] 01:31:00* Test Item Value Reference Range Interpretation Comments WHITE BLOOD CELL (test code = WBC) 5.3 K/mm3 4.5-12.5 N RED BLOOD CELL (test code = RBC) 2.98 mill/mm3 3.7-5.2 L HEMOGLOBIN (test code = HGB) 9.3 gram/dL 11.5-15.5 L HEMATOCRIT (test code = HCT) 32.1 % 36.0-46.0 L MEAN CELL VOLUME (test code = MCV) 107.7 fL 80-98 H MEAN CELL HGB (test code = MCH) 31.2 picogram 27.0-33.0 N MEAN CELL HGB CONCETRATION (test code = MCHC) 29.0 gram/dL 33.0-36. 0 L RED CELL DISTRIBUTION WIDTH (test code = RDW) 16.5 % 11.6-16. 2 H RED CELL DISTRIBUTION WIDTH SD (test code = RDW-SD) 65.6 fL 37 .0-51.0 H PLATELET COUNT (test code = PLT) 162 K/mm3 150-450 N MEAN PLATELET VOLUME (test code = MPV) 9.7 fL 6.7-11.0 N NEUTROPHIL % (test code = NT%) 58.0 % 39.0-69.0 N IMMATURE GRANULOCYTE % (test code = IG%) 0.6 % 0.0-5.0 N LYMPHOCYTE % (test code = LY%) 11.3 % 25.0-55.0 L MONOCYTE % (test code = MO%) 11.7 % 0.0-10.0 H EOSINOPHIL % (test code = EO%) 18.0 % 0.0-5.0 H BASOPHIL % (test code = BA%) 0.4 % 0.0-1.0 N NUCLEATED RBC % (test code = NRBC%) 0.0 % 0-0 N NEUTROPHIL # (test code = NT#) 3.09 K/mm3 1.8-7.7 N IMMATURE GRANULOCYTE # (test code = IG#) 0.03 x10 3/uL 0-0.03 N LYMPHOCYTE # (test code = LY#) 0.60 K/mm3 1.0-5.0 L MONOCYTE # (test code = MO#) 0.62 K/mm3 0-0.8 N EOSINOPHIL # (test code = EO#) 0.96 K/mm3 0.0-0.5 H BASOPHIL # (test code = BA#) 0.02 K/mm3 0.0-0.2 N NUCLEATED RBC # (test code = NRBC#) 0.00 K/mm3 0.0-0.1 N MANUAL DIFF REQUIRED (test code = MDIFF) NO, ONLY SCAN NEEDED DIFFERENTIAL [id number] 01:31:00* Test Item Value Reference Range Interpretation Comments STAIN ACCEPTABILITY (test code = STN ACCEPTABLE) CABOT RINGS (test code = CAB) MORPHOLOGY COMMENT (test code = MOC) PLATELET ESTIMATE (test code = PLTEST) PLATELET MORPHOLOGY (test code = PLTMORPH) CBC W/AUTO [id number] 01:31:00* Test Item Value Reference Range Interpretation Comments WHITE BLOOD CELL (test code = WBC) 5.3 K/mm3 4.5-12.5 N RED BLOOD CELL (test code = RBC) 2.98 mill/mm3 3.7-5.2 L HEMOGLOBIN (test code = HGB) 9.3 gram/dL 11.5-15.5 L HEMATOCRIT (test code = HCT) 32.1 % 36.0-46.0 L MEAN CELL VOLUME (test code = MCV) 107.7 fL 80-98 H MEAN CELL HGB (test code = MCH) 31.2 picogram 27.0-33.0 N MEAN CELL HGB CONCETRATION (test code = MCHC) 29.0 gram/dL 33.0-36. 0 L RED CELL DISTRIBUTION WIDTH (test code = RDW) 16.5 % 11.6-16. 2 H RED CELL DISTRIBUTION WIDTH SD (test code = RDW-SD) 65.6 fL 37 .0-51.0 H PLATELET COUNT (test code = PLT) 162 K/mm3 150-450 N MEAN PLATELET VOLUME (test code = MPV) 9.7 fL 6.7-11.0 N NEUTROPHIL % (test code = NT%) 58.0 % 39.0-69.0 N IMMATURE GRANULOCYTE % (test code = IG%) 0.6 % 0.0-5.0 N LYMPHOCYTE % (test code = LY%) 11.3 % 25.0-55.0 L MONOCYTE % (test code = MO%) 11.7 % 0.0-10.0 H EOSINOPHIL % (test code = EO%) 18.0 % 0.0-5.0 H BASOPHIL % (test code = BA%) 0.4 % 0.0-1.0 N NUCLEATED RBC % (test code = NRBC%) 0.0 % 0-0 N NEUTROPHIL # (test code = NT#) 3.09 K/mm3 1.8-7.7 N IMMATURE GRANULOCYTE # (test code = IG#) 0.03 x10 3/uL 0-0.03 N LYMPHOCYTE # (test code = LY#) 0.60 K/mm3 1.0-5.0 L MONOCYTE # (test code = MO#) 0.62 K/mm3 0-0.8 N EOSINOPHIL # (test code = EO#) 0.96 K/mm3 0.0-0.5 H BASOPHIL # (test code = BA#) 0.02 K/mm3 0.0-0.2 N NUCLEATED RBC # (test code = NRBC#) 0.00 K/mm3 0.0-0.1 N MANUAL DIFF REQUIRED (test code = MDIFF) NO, ONLY SCAN NEEDED DIFFERENTIAL [id number] 01:31:00* Test Item Value Reference Range Interpretation Comments STAIN ACCEPTABILITY (test code = STN ACCEPTABLE) MORPHOLOGY COMMENT (test code = MOC) PLATELET ESTIMATE (test code = PLTEST) PLATELET MORPHOLOGY (test code = PLTMORPH) CBC W/AUTO [id number] 01:31:00* Test Item Value Reference Range Interpretation Comments WHITE BLOOD CELL (test code = WBC) 5.3 K/mm3 4.5-12.5 N RED BLOOD CELL (test code = RBC) 2.98 mill/mm3 3.7-5.2 L HEMOGLOBIN (test code = HGB) 9.3 gram/dL 11.5-15.5 L HEMATOCRIT (test code = HCT) 32.1 % 36.0-46.0 L MEAN CELL VOLUME (test code = MCV) 107.7 fL 80-98 H MEAN CELL HGB (test code = MCH) 31.2 picogram 27.0-33.0 N MEAN CELL HGB CONCETRATION (test code = MCHC) 29.0 gram/dL 33.0-36. 0 L RED CELL DISTRIBUTION WIDTH (test code = RDW) 16.5 % 11.6-16. 2 H RED CELL DISTRIBUTION WIDTH SD (test code = RDW-SD) 65.6 fL 37 .0-51.0 H PLATELET COUNT (test code = PLT) 162 K/mm3 150-450 N MEAN PLATELET VOLUME (test code = MPV) 9.7 fL 6.7-11.0 N NEUTROPHIL % (test code = NT%) 58.0 % 39.0-69.0 N IMMATURE GRANULOCYTE % (test code = IG%) 0.6 % 0.0-5.0 N LYMPHOCYTE % (test code = LY%) 11.3 % 25.0-55.0 L MONOCYTE % (test code = MO%) 11.7 % 0.0-10.0 H EOSINOPHIL % (test code = EO%) 18.0 % 0.0-5.0 H BASOPHIL % (test code = BA%) 0.4 % 0.0-1.0 N NUCLEATED RBC % (test code = NRBC%) 0.0 % 0-0 N NEUTROPHIL # (test code = NT#) 3.09 K/mm3 1.8-7.7 N IMMATURE GRANULOCYTE # (test code = IG#) 0.03 x10 3/uL 0-0.03 N LYMPHOCYTE # (test code = LY#) 0.60 K/mm3 1.0-5.0 L MONOCYTE # (test code = MO#) 0.62 K/mm3 0-0.8 N EOSINOPHIL # (test code = EO#) 0.96 K/mm3 0.0-0.5 H BASOPHIL # (test code = BA#) 0.02 K/mm3 0.0-0.2 N NUCLEATED RBC # (test code = NRBC#) 0.00 K/mm3 0.0-0.1 N MANUAL DIFF REQUIRED (test code = MDIFF) NO, ONLY SCAN NEEDED DIFFERENTIAL [id number] 01:31:00* Test Item Value Reference Range Interpretation Comments STAIN ACCEPTABILITY (test code = STN ACCEPTABLE) CABOT RINGS (test code = CAB) MORPHOLOGY COMMENT (test code = MOC) PLATELET ESTIMATE (test code = PLTEST) PLATELET MORPHOLOGY (test code = PLTMORPH) ARTERIAL BLOOD [id number] 23:28:00* Test Item Value Reference Range Interpretation Comments ARTERIAL BLOOD GAS PH (test code = PHA) 7.31 7.35-7.45 L ARTERIAL BLOOD GAS PCO2 (test code = PCO2A) 42.3 mm Hg 35-45 N ARTERIAL BLOOD GAS PO2 (test code = PO2A) 110.3 mmHg 80-100 H BICARBONATE TOTAL HCO3 (test code = HCO3) 20.8 mmol/L 23.0-27.0 L BASE EXCESS (test code = МАРИЯ) -5.1 mmol/L -3.0-5.0 LL Results called to and read back by ANDRE Burr 23:27 - 11/01/2019; by [id number] ABG O2 SATURATION (test code = SATA) 96.8 % 90.0-98.0 N ABG TYPE (test code = TYPEA) Arterial FIO2 (test code = FIO2A) 60.0 ABG VENT MODE (test code = MODEA) Assist Control ABG VENT RESP RATE (test code = RRA) 16.0 per min ABG TIDAL VOLUME (test code = TVA) 400.0 mL ABG PEEP (test code = PEEPA) 5.0 cmH2O ABG SITE (test code = SITEA) Lt RADIAL ARTERY MODIFIED ALLENS (test code = MODALL) Yes CHECK PERFORMED SODIUM (test code = NA/ABG) 137.9 mEq/L 135-148 N POTASSIUM (test code = K/ABG) 5.3 mEq/L 3.5-4.5 H CHLORIDE (test code = CL/ABG) 104 mEq/L 98-106 N GLUCOSE (test code = GLU/ABG) 140 mg/dL 74-99 H HEMATOCRIT (test code = HCT/ABG) 31 % 35-47 L IONIZED CALCIUM (test code = CAIABG) 1.03 mmol/L 1.1-1.37 L TOTAL HGB (test code = THB) 10.6 gram/dL 11.5-15.5 L HGB O2 SAT (test code = HBOSAT) 95.3 % 94.00-98.00 N CARBOXYHEMOGLOBIN (test code = HOHGBT) 1.2 %totalHg 0.5-1.5 N METHEMOGLOBIN (test code = METHGB) 0.4 % 0.0-1.50 N O2 CONTENT (test code = O2CT) 14.4 % vol 18.0-22.0 L [id number] 19:44:00* Test Item Value Reference Range Interpretation Comments GLUBED (test code = GLUBED) 104 mg/dL 74-106 N Performed by certified vibrating screed operator at [facility] [id number] 15:10:00* Test Item Value Reference Range Interpretation Comments GLUBED (test code = GLUBED) 132 mg/dL 74-106 H Performed by certified vibrating screed operator at [facility] [id number] 10:14:00* Test Item Value Reference Range Interpretation Comments GLUBED (test code = GLUBED) 121 mg/dL 74-106 H Performed by certified vibrating screed operator at [facility] [id number] 09:52:00* Test Item Value Reference Range Interpretation Comments GLUBED (test code = GLUBED) 116 mg/dL 74-106 H Performed by certified vibrating screed operator at [facility] [id number] 07:12:00* Test Item Value Reference Range Interpretation Comments GLUBED (test code = GLUBED) 104 mg/dL 74-106 N Performed by certified vibrating screed operator at [facility] BASIC METABOLIC [id number] 07:11:00* Test Item Value Reference Range Interpretation Comments SODIUM (test code = NA) 144 mmol/L 136-145 N POTASSIUM (test code = K) 3.8 mmol/L 3.5-5.1 N CHLORIDE (test code = CL) 106.0 mmol/L 98-107 N CARBON DIOXIDE (test code = CO2) 30.0 mmol/L 21-32 N ANION GAP (test code = GAP) 11.8 10-20 N GLUCOSE (test code = GLU) 99 mg/dL 74-106 N BLOOD UREA NITROGEN (test code = BUN) 20 mg/dL 7-18 H GLOMERULAR FILTRATION RATE (test code = GFR) 10 mL/min >=60 Estimated GFR by using Modified MDRD formula.Chronic kidney disease is defined as either kidney damageor GFR <60 mL/min/1.73 m2 for >3 months. CREATININE (test code = CREAT) 4.40 mg/dL 0.55-1.02 H Note change in reference range due to change in reagent. BUN/CREATININE RATIO (test code = BUN/CREA) 4.5 10-20 L CALCIUM (test code = CA) 7.8 mg/dL 8.5-10.1 L BASIC METABOLIC [id number] 07:10:00* Test Item Value Reference Range Interpretation Comments SODIUM (test code = NA) 144 mmol/L 136-145 N POTASSIUM (test code = K) 3.8 mmol/L 3.5-5.1 N CHLORIDE (test code = CL) 106.0 mmol/L 98-107 N CARBON DIOXIDE (test code = CO2) mmol/L 21-32 ANION GAP (test code = GAP) 10-20 GLUCOSE (test code = GLU) mg/dL 74-106 BLOOD UREA NITROGEN (test code = BUN) mg/dL 7-18 GLOMERULAR FILTRATION RATE (test code = GFR) mL/min >=60 CREATININE (test code = CREAT) mg/dL 0.55-1.02 BUN/CREATININE RATIO (test code = BUN/CREA) 10-20 CALCIUM (test code = CA) mg/dL 8.5-10.1 - XR CHEST 1 [id number] 07:06:00 FAX: John Mckeon [phone] [place]: B St: [facility] FAX: Ciara Gibbs MD FAX: Jaspreet Perea MD [phone] Name: TAI GRANT [facility] : 1960 Age/S: 59/F [address] [facility] Unit #: [id number] Loc: V.S26 [place] [address] Phys: Jonh Mckeon Acct: [id number] Dis Date: Status: ADM IN ONE #: [phone] Exam Date: 11/01/2019 0500 FAX #: [phone] Reason: updated pulm view EXAMS: CPT CODE: [id number] XR CHEST 1 V 30985 HISTORY: Respi ratory failure. COMPARISON: Previous day. Location: TH. Patchy bilateral infiltrates, greater on the right are unchang ed. Bibasal subsegmental atelectasis. No effusion or congestion. Cardiomegaly. IMPRESSION: Patchy bilateral inf iltrates, greater on the right are unchanged. at 0706 Reported and signed by: Taran Ortiz M.D. CC: John Mckeon; Merna Marino MD; Jaspreet Jerez MD Technologist: Mary Valdez Trnscrd Date/Time/By: 11/01/2019 (705) : By: [email or web address] Orig Print D/T: S: 11/01/2019 (09) PAGE 1 Signed Report BASIC METABOLIC [id number] 02:07:00* Test Item Value Reference Range Interpretation Comments SODIUM (test code = NA) 145 mmol/L 136-145 N POTASSIUM (test code = K) 4.0 mmol/L 3.5-5.1 N CHLORIDE (test code = CL) 107.0 mmol/L 98-107 N CARBON DIOXIDE (test code = CO2) 32.0 mmol/L 21-32 N ANION GAP (test code = GAP) 10.0 10-20 N GLUCOSE (test code = GLU) 75 mg/dL 74-106 N BLOOD UREA NITROGEN (test code = BUN) 18 mg/dL 7-18 N GLOMERULAR FILTRATION RATE (test code = GFR) 12 mL/min >=60 Estimated GFR by using Modified MDRD formula.Chronic kidney disease is defined as either kidney damageor GFR <60 mL/min/1.73 m2 for >3 months. CREATININE (test code = CREAT) 4.00 mg/dL 0.55-1.02 H Note change in reference range due to change in reagent. BUN/CREATININE RATIO (test code = BUN/CREA) 4.5 10-20 L CALCIUM (test code = CA) 8.2 mg/dL 8.5-10.1 L [id number] 02:07:00* Test Item Value Reference Range Interpretation Comments MAGNESIUM (test code = MAG) 1.9 mg/dL 1.8-2.4 N BASIC METABOLIC [id number] 01:55:00* Test Item Value Reference Range Interpretation Comments SODIUM (test code = NA) 145 mmol/L 136-145 N POTASSIUM (test code = K) 4.0 mmol/L 3.5-5.1 N CHLORIDE (test code = CL) 107.0 mmol/L 98-107 N CARBON DIOXIDE (test code = CO2) mmol/L 21-32 ANION GAP (test code = GAP) 10-20 GLUCOSE (test code = GLU) mg/dL 74-106 BLOOD UREA NITROGEN (test code = BUN) mg/dL 7-18 GLOMERULAR FILTRATION RATE (test code = GFR) mL/min >=60 CREATININE (test code = CREAT) mg/dL 0.55-1.02 BUN/CREATININE RATIO (test code = BUN/CREA) 10-20 CALCIUM (test code = CA) mg/dL 8.5-10.1 [id number] 01:55:00* Test Item Value Reference Range Interpretation Comments MAGNESIUM (test code = MAG) mg/dL 1.8-2.4 CBC W/O [id number] 01:45:00* Test Item Value Reference Range Interpretation Comments WHITE BLOOD CELL (test code = WBC) 5.4 K/mm3 4.5-12.5 N RED BLOOD CELL (test code = RBC) 2.93 mill/mm3 3.7-5.2 L HEMOGLOBIN (test code = HGB) 9.3 gram/dL 11.5-15.5 L HEMATOCRIT (test code = HCT) 31.4 % 36.0-46.0 L MEAN CELL VOLUME (test code = MCV) 107.2 fL 80-98 H MEAN CELL HGB (test code = MCH) 31.7 picogram 27.0-33.0 N MEAN CELL HGB CONCETRATION (test code = MCHC) 29.6 gram/dL 33.0-36. 0 L RED CELL DISTRIBUTION WIDTH (test code = RDW) 17.0 % 11.6-16. 2 H PLATELET COUNT (test code = PLT) 147 K/mm3 150-450 L MEAN PLATELET VOLUME (test code = MPV) 9.8 fL 6.7-11.0 N [id number] 21:27:00* Test Item Value Reference Range Interpretation Comments GLUBED (test code = GLUBED) 170 mg/dL 74-106 H Performed by certified vibrating screed operator at [facility] [id number] 16:38:00* Test Item Value Reference Range Interpretation Comments GLUBED (test code = GLUBED) 139 mg/dL 74-106 H Performed by certified vibrating screed operator at [facility] [id number] 11:39:00* Test Item Value Reference Range Interpretation Comments GLUBED (test code = GLUBED) 173 mg/dL 74-106 H Performed by certified vibrating screed operator at [facility] CBC W/AUTO [id number] 11:35:00* Test Item Value Reference Range Interpretation Comments WHITE BLOOD CELL (test code = WBC) 6.6 K/mm3 4.5-12.5 N RED BLOOD CELL (test code = RBC) 2.70 mill/mm3 3.7-5.2 L HEMOGLOBIN (test code = HGB) 8.5 gram/dL 11.5-15.5 L HEMATOCRIT (test code = HCT) 30.0 % 36.0-46.0 L MEAN CELL VOLUME (test code = MCV) 111.1 fL 80-98 H MEAN CELL HGB (test code = MCH) 31.5 picogram 27.0-33.0 N MEAN CELL HGB CONCETRATION (test code = MCHC) 28.3 gram/dL 33.0-36. 0 L RED CELL DISTRIBUTION WIDTH (test code = RDW) 17.7 % 11.6-16. 2 H RED CELL DISTRIBUTION WIDTH SD (test code = RDW-SD) 71.5 fL 37 .0-51.0 H PLATELET COUNT (test code = PLT) 120 K/mm3 150-450 L MEAN PLATELET VOLUME (test code = MPV) 9.7 fL 6.7-11.0 N NEUTROPHIL % (test code = NT%) 69.7 % 39.0-69.0 H IMMATURE GRANULOCYTE % (test code = IG%) 0.9 % 0.0-5.0 N LYMPHOCYTE % (test code = LY%) 7.6 % 25.0-55.0 L MONOCYTE % (test code = MO%) 12.4 % 0.0-10.0 H EOSINOPHIL % (test code = EO%) 8.9 % 0.0-5.0 H BASOPHIL % (test code = BA%) 0.5 % 0.0-1.0 N NUCLEATED RBC % (test code = NRBC%) 0.0 % 0-0 N NEUTROPHIL # (test code = NT#) 4.60 K/mm3 1.8-7.7 N IMMATURE GRANULOCYTE # (test code = IG#) 0.06 x10 3/uL 0-0.03 H LYMPHOCYTE # (test code = LY#) 0.50 K/mm3 1.0-5.0 L MONOCYTE # (test code = MO#) 0.82 K/mm3 0-0.8 H EOSINOPHIL # (test code = EO#) 0.59 K/mm3 0.0-0.5 H BASOPHIL # (test code = BA#) 0.03 K/mm3 0.0-0.2 N NUCLEATED RBC # (test code = NRBC#) 0.00 K/mm3 0.0-0.1 N MANUAL DIFF REQUIRED (test code = MDIFF) NO, ONLY SCAN NEEDED DIFFERENTIAL [id number] 11:35:00* Test Item Value Reference Range Interpretation Comments STAIN ACCEPTABILITY (test code = STN ACCEPTABLE) STAIN ACCEPTABLE ANISOCYTOSIS (test code = ANISO) 1+ PLATELET ESTIMATE (test code = PLTEST) DECREASED PLATELET MORPHOLOGY (test code = PLTMORPH) NORMAL CBC W/AUTO [id number] 11:11:00* Test Item Value Reference Range Interpretation Comments WHITE BLOOD CELL (test code = WBC) 6.6 K/mm3 4.5-12.5 N RED BLOOD CELL (test code = RBC) 2.70 mill/mm3 3.7-5.2 L HEMOGLOBIN (test code = HGB) 8.5 gram/dL 11.5-15.5 L HEMATOCRIT (test code = HCT) 30.0 % 36.0-46.0 L MEAN CELL VOLUME (test code = MCV) 111.1 fL 80-98 H MEAN CELL HGB (test code = MCH) 31.5 picogram 27.0-33.0 N MEAN CELL HGB CONCETRATION (test code = MCHC) 28.3 gram/dL 33.0-36. 0 L RED CELL DISTRIBUTION WIDTH (test code = RDW) 17.7 % 11.6-16. 2 H RED CELL DISTRIBUTION WIDTH SD (test code = RDW-SD) 71.5 fL 37 .0-51.0 H PLATELET COUNT (test code = PLT) 120 K/mm3 150-450 L MEAN PLATELET VOLUME (test code = MPV) 9.7 fL 6.7-11.0 N NEUTROPHIL % (test code = NT%) 69.7 % 39.0-69.0 H IMMATURE GRANULOCYTE % (test code = IG%) 0.9 % 0.0-5.0 N LYMPHOCYTE % (test code = LY%) 7.6 % 25.0-55.0 L MONOCYTE % (test code = MO%) 12.4 % 0.0-10.0 H EOSINOPHIL % (test code = EO%) 8.9 % 0.0-5.0 H BASOPHIL % (test code = BA%) 0.5 % 0.0-1.0 N NUCLEATED RBC % (test code = NRBC%) 0.0 % 0-0 N NEUTROPHIL # (test code = NT#) 4.60 K/mm3 1.8-7.7 N IMMATURE GRANULOCYTE # (test code = IG#) 0.06 x10 3/uL 0-0.03 H LYMPHOCYTE # (test code = LY#) 0.50 K/mm3 1.0-5.0 L MONOCYTE # (test code = MO#) 0.82 K/mm3 0-0.8 H EOSINOPHIL # (test code = EO#) 0.59 K/mm3 0.0-0.5 H BASOPHIL # (test code = BA#) 0.03 K/mm3 0.0-0.2 N NUCLEATED RBC # (test code = NRBC#) 0.00 K/mm3 0.0-0.1 N MANUAL DIFF REQUIRED (test code = MDIFF) NO, ONLY SCAN NEEDED DIFFERENTIAL [id number] 11:11:00* Test Item Value Reference Range Interpretation Comments STAIN ACCEPTABILITY (test code = STN ACCEPTABLE) CABOT RINGS (test code = CAB) MORPHOLOGY COMMENT (test code = MOC) PLATELET ESTIMATE (test code = PLTEST) PLATELET MORPHOLOGY (test code = PLTMORPH) CBC W/AUTO [id number] 11:11:00* Test Item Value Reference Range Interpretation Comments WHITE BLOOD CELL (test code = WBC) 6.6 K/mm3 4.5-12.5 N RED BLOOD CELL (test code = RBC) 2.70 mill/mm3 3.7-5.2 L HEMOGLOBIN (test code = HGB) 8.5 gram/dL 11.5-15.5 L HEMATOCRIT (test code = HCT) 30.0 % 36.0-46.0 L MEAN CELL VOLUME (test code = MCV) 111.1 fL 80-98 H MEAN CELL HGB (test code = MCH) 31.5 picogram 27.0-33.0 N MEAN CELL HGB CONCETRATION (test code = MCHC) 28.3 gram/dL 33.0-36. 0 L RED CELL DISTRIBUTION WIDTH (test code = RDW) 17.7 % 11.6-16. 2 H RED CELL DISTRIBUTION WIDTH SD (test code = RDW-SD) 71.5 fL 37 .0-51.0 H PLATELET COUNT (test code = PLT) 120 K/mm3 150-450 L MEAN PLATELET VOLUME (test code = MPV) 9.7 fL 6.7-11.0 N NEUTROPHIL % (test code = NT%) 69.7 % 39.0-69.0 H IMMATURE GRANULOCYTE % (test code = IG%) 0.9 % 0.0-5.0 N LYMPHOCYTE % (test code = LY%) 7.6 % 25.0-55.0 L MONOCYTE % (test code = MO%) 12.4 % 0.0-10.0 H EOSINOPHIL % (test code = EO%) 8.9 % 0.0-5.0 H BASOPHIL % (test code = BA%) 0.5 % 0.0-1.0 N NUCLEATED RBC % (test code = NRBC%) 0.0 % 0-0 N NEUTROPHIL # (test code = NT#) 4.60 K/mm3 1.8-7.7 N IMMATURE GRANULOCYTE # (test code = IG#) 0.06 x10 3/uL 0-0.03 H LYMPHOCYTE # (test code = LY#) 0.50 K/mm3 1.0-5.0 L MONOCYTE # (test code = MO#) 0.82 K/mm3 0-0.8 H EOSINOPHIL # (test code = EO#) 0.59 K/mm3 0.0-0.5 H BASOPHIL # (test code = BA#) 0.03 K/mm3 0.0-0.2 N NUCLEATED RBC # (test code = NRBC#) 0.00 K/mm3 0.0-0.1 N MANUAL DIFF REQUIRED (test code = MDIFF) NO, ONLY SCAN NEEDED DIFFERENTIAL [id number] 11:11:00* Test Item Value Reference Range Interpretation Comments STAIN ACCEPTABILITY (test code = STN ACCEPTABLE) CABOT RINGS (test code = CAB) MORPHOLOGY COMMENT (test code = MOC) PLATELET ESTIMATE (test code = PLTEST) PLATELET MORPHOLOGY (test code = PLTMORPH) CBC W/AUTO [id number] 11:11:00* Test Item Value Reference Range Interpretation Comments WHITE BLOOD CELL (test code = WBC) 6.6 K/mm3 4.5-12.5 N RED BLOOD CELL (test code = RBC) 2.70 mill/mm3 3.7-5.2 L HEMOGLOBIN (test code = HGB) 8.5 gram/dL 11.5-15.5 L HEMATOCRIT (test code = HCT) 30.0 % 36.0-46.0 L MEAN CELL VOLUME (test code = MCV) 111.1 fL 80-98 H MEAN CELL HGB (test code = MCH) 31.5 picogram 27.0-33.0 N MEAN CELL HGB CONCETRATION (test code = MCHC) 28.3 gram/dL 33.0-36. 0 L RED CELL DISTRIBUTION WIDTH (test code = RDW) 17.7 % 11.6-16. 2 H RED CELL DISTRIBUTION WIDTH SD (test code = RDW-SD) 71.5 fL 37 .0-51.0 H PLATELET COUNT (test code = PLT) 120 K/mm3 150-450 L MEAN PLATELET VOLUME (test code = MPV) 9.7 fL 6.7-11.0 N NEUTROPHIL % (test code = NT%) 69.7 % 39.0-69.0 H IMMATURE GRANULOCYTE % (test code = IG%) 0.9 % 0.0-5.0 N LYMPHOCYTE % (test code = LY%) 7.6 % 25.0-55.0 L MONOCYTE % (test code = MO%) 12.4 % 0.0-10.0 H EOSINOPHIL % (test code = EO%) 8.9 % 0.0-5.0 H BASOPHIL % (test code = BA%) 0.5 % 0.0-1.0 N NUCLEATED RBC % (test code = NRBC%) 0.0 % 0-0 N NEUTROPHIL # (test code = NT#) 4.60 K/mm3 1.8-7.7 N IMMATURE GRANULOCYTE # (test code = IG#) 0.06 x10 3/uL 0-0.03 H LYMPHOCYTE # (test code = LY#) 0.50 K/mm3 1.0-5.0 L MONOCYTE # (test code = MO#) 0.82 K/mm3 0-0.8 H EOSINOPHIL # (test code = EO#) 0.59 K/mm3 0.0-0.5 H BASOPHIL # (test code = BA#) 0.03 K/mm3 0.0-0.2 N NUCLEATED RBC # (test code = NRBC#) 0.00 K/mm3 0.0-0.1 N MANUAL DIFF REQUIRED (test code = MDIFF) NO, ONLY SCAN NEEDED DIFFERENTIAL [id number] 11:11:00* Test Item Value Reference Range Interpretation Comments STAIN ACCEPTABILITY (test code = STN ACCEPTABLE) MORPHOLOGY COMMENT (test code = MOC) PLATELET ESTIMATE (test code = PLTEST) PLATELET MORPHOLOGY (test code = PLTMORPH) CBC W/AUTO [id number] 11:10:00* Test Item Value Reference Range Interpretation Comments WHITE BLOOD CELL (test code = WBC) 6.6 K/mm3 4.5-12.5 N RED BLOOD CELL (test code = RBC) 2.70 mill/mm3 3.7-5.2 L HEMOGLOBIN (test code = HGB) 8.5 gram/dL 11.5-15.5 L HEMATOCRIT (test code = HCT) 30.0 % 36.0-46.0 L MEAN CELL VOLUME (test code = MCV) 111.1 fL 80-98 H MEAN CELL HGB (test code = MCH) 31.5 picogram 27.0-33.0 N MEAN CELL HGB CONCETRATION (test code = MCHC) 28.3 gram/dL 33.0-36. 0 L RED CELL DISTRIBUTION WIDTH (test code = RDW) 17.7 % 11.6-16. 2 H RED CELL DISTRIBUTION WIDTH SD (test code = RDW-SD) 71.5 fL 37 .0-51.0 H PLATELET COUNT (test code = PLT) 120 K/mm3 150-450 L MEAN PLATELET VOLUME (test code = MPV) 9.7 fL 6.7-11.0 N NEUTROPHIL % (test code = NT%) 69.7 % 39.0-69.0 H IMMATURE GRANULOCYTE % (test code = IG%) 0.9 % 0.0-5.0 N LYMPHOCYTE % (test code = LY%) 7.6 % 25.0-55.0 L MONOCYTE % (test code = MO%) 12.4 % 0.0-10.0 H EOSINOPHIL % (test code = EO%) 8.9 % 0.0-5.0 H BASOPHIL % (test code = BA%) 0.5 % 0.0-1.0 N NUCLEATED RBC % (test code = NRBC%) 0.0 % 0-0 N NEUTROPHIL # (test code = NT#) 4.60 K/mm3 1.8-7.7 N IMMATURE GRANULOCYTE # (test code = IG#) 0.06 x10 3/uL 0-0.03 H LYMPHOCYTE # (test code = LY#) 0.50 K/mm3 1.0-5.0 L MONOCYTE # (test code = MO#) 0.82 K/mm3 0-0.8 H EOSINOPHIL # (test code = EO#) 0.59 K/mm3 0.0-0.5 H BASOPHIL # (test code = BA#) 0.03 K/mm3 0.0-0.2 N NUCLEATED RBC # (test code = NRBC#) 0.00 K/mm3 0.0-0.1 N MANUAL DIFF REQUIRED (test code = MDIFF) NO, ONLY SCAN NEEDED DIFFERENTIAL [id number] 11:10:00* Test Item Value Reference Range Interpretation Comments STAIN ACCEPTABILITY (test code = STN ACCEPTABLE) CABOT RINGS (test code = CAB) MORPHOLOGY COMMENT (test code = MOC) PLATELET ESTIMATE (test code = PLTEST) PLATELET MORPHOLOGY (test code = PLTMORPH) [id number] 07:51:00* Test Item Value Reference Range Interpretation Comments GLUBED (test code = GLUBED) 115 mg/dL 74-106 H Performed by certified vibrating screed operator at [facility] - XR CHEST 1 [id number] 06:48:00 FAX: John Mckeon [phone] [place]: St: ADM FAX: Ciara Gibbs MD FAX: Jaspreet Perea MD [phone] Name: TAI GRANT [facility] : 1960 Age/S: 59/F [address] [facility] Unit #: [id number] Loc: V.S[address] [place] [address] Phys: John Mckeon Acct: [id number] Dis Date: Status: ADM IN [facility] #: [phone] Exam Date: 10/31/2019 0511 FAX #: [phone] Reason: PULMONARY EDEMA EXAMS: CPT CODE: [id number] XR CHEST 1 V 62257 HISTORY: Pulmo nary edema. COMPARISON: CT chest from previous day. Location: TH. Slight improvement in the diffuse dense bilateral al veolar infiltrates, greater on the right. Dependent changes. No effusion or congestion. Moderate cardiomegaly. IMPRESSION: Slight improvement in the dense bilateral consolidation/infiltrates from previous day. at 0648 Reported and signed by: Taran bland M.D. CC: John Mckeon; Ciara Marino MD; Jaspreet Jerez MD Technologist: ROBERTH Valdez Trnscrd Date/Time/By: 10/31/2019 (0648) : By: [email or web address] Orig Print D/T: S: 10/31/2019 (0651) PAGE 1 Signed Report [id number] 01:56:00* Test Item Value Reference Range Interpretation Comments TROPONIN-I (test code = TROPI) <0.015 ng/mL 0-0.045 N COMMENTS TO LABORATORY APPARATUS GLASS GRINDER: COLLECT 3 HOURS AFTER PREVIOUS SAMPLEBASIC METABOLIC [id number] 01:54:00* Test Item Value Reference Range Interpretation Comments SODIUM (test code = NA) 143 mmol/L 136-145 N POTASSIUM (test code = K) 4.0 mmol/L 3.5-5.1 N CHLORIDE (test code = CL) 104.0 mmol/L 98-107 N CARBON DIOXIDE (test code = CO2) 27.0 mmol/L 21-32 N ANION GAP (test code = GAP) 16.0 10-20 N GLUCOSE (test code = GLU) 116 mg/dL 74-106 H BLOOD UREA NITROGEN (test code = BUN) 32 mg/dL 7-18 H RESULT VERIFIED BY REPEAT ANALYSIS GLOMERULAR FILTRATION RATE (test code = GFR) 8 mL/min >=60 Estimated GFR by using Modified MDRD formula.Chronic kidney disease is defined as either kidney damageor GFR <60 mL/min/1.73 m2 for >3 months. CREATININE (test code = CREAT) 5.50 mg/dL 0.55-1.02 H Note change in reference range due to change in reagent. BUN/CREATININE RATIO (test code = BUN/CREA) 5.8 10-20 L CALCIUM (test code = CA) 7.6 mg/dL 8.5-10.1 L [id number] 01:54:00* Test Item Value Reference Range Interpretation Comments PHOSPHORUS (test code = PHOS) 6.1 mg/dL 2.5-4.9 H [id number] 01:54:00* Test Item Value Reference Range Interpretation Comments MAGNESIUM (test code = MAG) 2.0 mg/dL 1.8-2.4 N CALCIUM [id number] 01:54:00* Test Item Value Reference Range Interpretation Comments CALCIUM IONIZED (test code = LAMONT) 1.08 mmol/L 1.12-1.32 L BASIC METABOLIC [id number] 01:53:00* Test Item Value Reference Range Interpretation Comments SODIUM (test code = NA) 143 mmol/L 136-145 N POTASSIUM (test code = K) 4.0 mmol/L 3.5-5.1 N CHLORIDE (test code = CL) 104.0 mmol/L 98-107 N CARBON DIOXIDE (test code = CO2) mmol/L 21-32 ANION GAP (test code = GAP) 10-20 GLUCOSE (test code = GLU) mg/dL 74-106 BLOOD UREA NITROGEN (test code = BUN) mg/dL 7-18 GLOMERULAR FILTRATION RATE (test code = GFR) mL/min >=60 CREATININE (test code = CREAT) mg/dL 0.55-1.02 BUN/CREATININE RATIO (test code = BUN/CREA) 10-20 CALCIUM (test code = CA) mg/dL 8.5-10.1 [id number] 01:53:00* Test Item Value Reference Range Interpretation Comments PHOSPHORUS (test code = PHOS) mg/dL 2.5-4.9 [id number] 01:53:00* Test Item Value Reference Range Interpretation Comments MAGNESIUM (test code = MAG) mg/dL 1.8-2.4 CALCIUM [id number] 01:53:00* Test Item Value Reference Range Interpretation Comments CALCIUM IONIZED (test code = LAMONT) 1.08 mmol/L 1.12-1.32 L BASIC METABOLIC [id number] 01:45:00* Test Item Value Reference Range Interpretation Comments SODIUM (test code = NA) 143 mmol/L 136-145 N POTASSIUM (test code = K) 4.0 mmol/L 3.5-5.1 N CHLORIDE (test code = CL) 104.0 mmol/L 98-107 N CARBON DIOXIDE (test code = CO2) mmol/L 21-32 ANION GAP (test code = GAP) 10-20 GLUCOSE (test code = GLU) mg/dL 74-106 BLOOD UREA NITROGEN (test code = BUN) mg/dL 7-18 GLOMERULAR FILTRATION RATE (test code = GFR) mL/min >=60 CREATININE (test code = CREAT) mg/dL 0.55-1.02 BUN/CREATININE RATIO (test code = BUN/CREA) 10-20 CALCIUM (test code = CA) mg/dL 8.5-10.1 [id number] 01:45:00* Test Item Value Reference Range Interpretation Comments PHOSPHORUS (test code = PHOS) mg/dL 2.5-4.9 [id number] 01:45:00* Test Item Value Reference Range Interpretation Comments MAGNESIUM (test code = MAG) mg/dL 1.8-2.4 CALCIUM [id number] 01:45:00* Test Item Value Reference Range Interpretation Comments CALCIUM IONIZED (test code = LAMONT) mmol/L 1.12-1.32 CBC W/AUTO [id number] 01:42:00* Test Item Value Reference Range Interpretation Comments WHITE BLOOD CELL (test code = WBC) 5.8 K/mm3 4.5-12.5 N RED BLOOD CELL (test code = RBC) 2.52 mill/mm3 3.7-5.2 L HEMOGLOBIN (test code = HGB) 8.0 gram/dL 11.5-15.5 L RESULT VERIFIED BY REPEAT ANALYSIS HEMATOCRIT (test code = HCT) 26.2 % 36.0-46.0 L MEAN CELL VOLUME (test code = MCV) 104.0 fL 80-98 H MEAN CELL HGB (test code = MCH) 31.7 picogram 27.0-33.0 N MEAN CELL HGB CONCETRATION (test code = MCHC) 30.5 gram/dL 33.0-36. 0 L RED CELL DISTRIBUTION WIDTH (test code = RDW) 17.6 % 11.6-16. 2 H RED CELL DISTRIBUTION WIDTH SD (test code = RDW-SD) 65.8 fL 37 .0-51.0 H PLATELET COUNT (test code = PLT) 141 K/mm3 150-450 L MEAN PLATELET VOLUME (test code = MPV) 9.8 fL 6.7-11.0 N NEUTROPHIL % (test code = NT%) 74.6 % 39.0-69.0 H IMMATURE GRANULOCYTE % (test code = IG%) 0.7 % 0.0-5.0 N LYMPHOCYTE % (test code = LY%) 9.1 % 25.0-55.0 L MONOCYTE % (test code = MO%) 12.7 % 0.0-10.0 H EOSINOPHIL % (test code = EO%) 2.7 % 0.0-5.0 N BASOPHIL % (test code = BA%) 0.2 % 0.0-1.0 N NUCLEATED RBC % (test code = NRBC%) 0.0 % 0-0 N NEUTROPHIL # (test code = NT#) 4.36 K/mm3 1.8-7.7 N IMMATURE GRANULOCYTE # (test code = IG#) 0.04 x10 3/uL 0-0.03 H LYMPHOCYTE # (test code = LY#) 0.53 K/mm3 1.0-5.0 L MONOCYTE # (test code = MO#) 0.74 K/mm3 0-0.8 N EOSINOPHIL # (test code = EO#) 0.16 K/mm3 0.0-0.5 N BASOPHIL # (test code = BA#) 0.01 K/mm3 0.0-0.2 N NUCLEATED RBC # (test code = NRBC#) 0.00 K/mm3 0.0-0.1 N MANUAL DIFF REQUIRED (test code = MDIFF) NO [id number] 20:24:00* Test Item Value Reference Range Interpretation Comments GLUBED (test code = GLUBED) 220 mg/dL 74-106 H Performed by certified vibrating screed operator at [facility] LACTIC [id number] 18:22:00* Test Item Value Reference Range Interpretation Comments LACTIC ACID (test code = LACT) 2.3 mmol/L 0.4-1.9 HH Results called to [id number] by V.LAB.SPR 10/30/19 1822Critical results verified and read back by Nurse? Y [id number] 15:05:00* Test Item Value Reference Range Interpretation Comments GLUBED (test code = GLUBED) 150 mg/dL 74-106 H Performed by certified vibrating screed operator at [facility] AG HEPAT B [id number] 12:30:00* Test Item Value Reference Range Interpretation Comments AG HEPAT B SURF (test code = HBSAG) Nonreactive Index Nonreactive LACTIC [id number] 12:10:00* Test Item Value Reference Range Interpretation Comments LACTIC ACID (test code = LACT) 3.1 mmol/L 0.4-1.9 HH Results called to [id number] by V.LAB.WJC 10/30/19 1208Critical results verified and read back by Nurse? Y [id number] 12:05:00* Test Item Value Reference Range Interpretation Comments TROPONIN-I (test code = TROPI) <0.015 ng/mL 0-0.045 N COMMENTS TO LABORATORY APPARATUS GLASS GRINDER: COLLECT 3 HOURS AFTER PREVIOUS [id number] 09:42:00* Test Item Value Reference Range Interpretation Comments GLUBED (test code = GLUBED) 149 mg/dL 74-106 H Performed by certified vibrating screed operator at [facility] - CT CHEST [id number] 08:08:00 Name: TAI GRANT [facility] : 1960 Age/S: 59 / F [address] [facility] Unit #: [id number] Loc: [place] [address] Phys: Andre Woods MD Acct: [id number] Dis Date: Status: ADM IN PHONE #: [phone] Exam Date: 10/30/2019 0751 FAX #: [phone] Reason: concern aortic aneurysm EXAMS: CPT CODE: [id number] CT CHEST W/CONTRAST 45479 HISTORY: Concern for aortic aneurysm. COMPARISON: None available. CT chest with contrast: 100 mL of Isovue-370. Automated exposure control. Location: TH. ET tube is above the yoselin. NG tube within the esophagus. No aortic aneurysm. No dissection. Unremarkable pulmonary arteries (not performed as PE protocol). Well-opacified SVC and the poorly visualized neck vasculature. Thyroid glands are unremarkable. Esophageal wall is not thickened. Fluid the esophagus. Cardiomegaly without pericardial effusion. Visualized upper abdomen is unremarkable. NG tube tip is noted within the stomach. Subcutaneous tissues and the musculature are normal in appearance. No lytic or blastic lesions are noted within the bony skeleton. DJD. Diffuse dense bilateral alveolar infiltrates with basal predominance with bilateral lower lobe segmental atelectasis. No effusion. No congestion. IMPRESSION: Diffuse dense bilateral alveolar infiltrates with basal predominance. No aortic aneurysm or dissection. No pathologic adenopathy. Dilated fluid-filled esophagus. at 0808 Repor nyasia and signed by: Taran Ortiz M.D. CC: Ciara Marino MD; Deonte Jerez MD; Andre Woods MD Technologist:Olegario Horta RT(R),(MR),(CT); CTDI: DLP: Trnscb Date/Time: 10/30/2019 (807) [email or web address] Orig Print D/T: S: 10/30/2019 (12) PAGE 1 Signed Report - XR CHEST 1 [id number] 05:27:00 FAX: Jaspreet Perea MD [phone] [place]: St: ADM FAX: Andre Woods MD Name: TAI GRANT [facility] : 1960 Age/S: 59/F [address] [facility] Unit #: [id number] Loc: [place] [address] Phys: Andre Woods MD Acct: [id number] Dis Date: Status: ADM IN PHONE #: [phone] Exam Date: 10/30/2019521 FAX #: [phone] Reason: ETT readjustment EXAMS: CPT CODE: [id number] XR CHEST 1 V 69459 DICTATION LOCATION: 8 HISTORY: Female, 59 years of age with ETT readjustment EXAM: CHEST X-RAY, ONE VIEW COMPARISON: 01/16/2019 COMMENT: Frontal view is provided. ET tube is present with tip approximately 3 cm above yoselin. Enteric tube is present with tip in the mid stomach. Dense bilateral alveolar interstitial opacities are present. No significant effusion. Heart is enlarged. Aortic arch appears dilated. No acute bony abnormalities. IM PRESSION: 1. ET and enteric tubes are in satisfactory position. 2. Dense bilateral perihilar opacities consistent with edema versus pn eumonia. 3. Aortic arch appears dilated suspicious for aneurysm. Recomme nd further assessment with CT scan. at 0556 Reported and sig ronnie by: Whitney Peterson MD CC: Jaspreet Jerez MD; Farideh Woods MD Technologist: Mary Valdez Trnscrd Date/Time/By: 10/30/2019 (0561) : By: BobCLW O rig Print D/T: S: 10/30/2019 (4634) PAGE 1 Signed Report ARTERIAL BLOOD GAS 2019-10-30 05:18:00* Test Item Value Reference Range Interpretation Comments ARTERIAL BLOOD GAS PH (test code = PHA) 7.17 7.35-7.45 L L Results called to and read back by ANDRE Burr 05:18 - 10/30/2019; by [id number] ARTERIAL BLOOD GAS PCO2 (test code = PCO2A) 51.1 mm Hg 35-45 H ARTERIAL BLOOD GAS PO2 (test code = PO2A) 119.9 mmHg 80-100 H BICARBONATE TOTAL HCO3 (test code = HCO3) 18.1 mmol/L 23.0-27.0 L BASE EXCESS (test code = МАРИЯ) -10.3 mmol/L -3.0-5.0 LL Results called to and read back by ANDRE Burr 05:18 - 10/30/2019; by [id number] ABG O2 SATURATION (test code = SATA) 97.0 % 90.0-98.0 N ABG TYPE (test code = TYPEA) Arterial FIO2 (test code = FIO2A) 60.0 ABG VENT MODE (test code = MODEA) Assist Control ABG VENT RESP RATE (test code = RRA) 1.0 per min ABG TIDAL VOLUME (test code = TVA) 400.0 mL ABG SITE (test code = SITEA) Rt RADIAL ARTERY MODIFIED ALLENS (test code = MODALL) Yes CHECK PERFORMED HEMATOCRIT (test code = HCT/ABG) 32 % 35-47 L TOTAL HGB (test code = THB) 10.8 gram/dL 11.5-15.5 L HGB O2 SAT (test code = HBOSAT) 95.7 % 94.00-98.00 N CARBOXYHEMOGLOBIN (test code = HOHGBT) 1.2 %totalHg 0.5-1.5 N METHEMOGLOBIN (test code = METHGB) 0.1 % 0.0-1.50 N O2 CONTENT (test code = O2CT) 14.7 % vol 18.0-22.0 L PROCALCITONIN (PCT)2019-10-30 05:14:00* Test Item Value Reference Range Interpretation Comments PROCALCITONIN (PCT) (test code = PROCAL) 0.54 ng/ml Concentration Interpretation (ng/mL) <0.51 Sepsis is not likely. Local bacterial infection is possible. (LOW RISK for progression to Sepsis) 0.51 - 2.00 Sepsis is possible, but other conditions are known to elevate PCT as well. (MODERATE RISK for progression to Sepsis) > 2.00 Sepsis is likely, unless other causes are known. (HIGH RISK for progression to Severe Sepsis or Septic Shock) 10.00 High likelihood of Severe Sepsis or Septic or higher Shock. *Increased PCT levels may not always be related to systemic bacterial infection.*Low PCT levels do not automatically exclude the presence of bacterial infection.*All results should be interpreted taking into account the patients history. B-TYPE NATRIURETIC [id number] 05:05:00* Test Item Value Reference Range Interpretation Comments B-TYPE NATRIURETIC PEPTIDE (test code = BNP) 90.68 pgram/mL 0-100 N BASIC METABOLIC [id number] 05:05:00* Test Item Value Reference Range Interpretation Comments SODIUM (test code = NA) 140 mmol/L 136-145 N POTASSIUM (test code = K) 5.6 mmol/L 3.5-5.1 H CHLORIDE (test code = CL) 105.0 mmol/L 98-107 N CARBON DIOXIDE (test code = CO2) 23.0 mmol/L 21-32 N ANION GAP (test code = GAP) 17.6 10-20 N GLUCOSE (test code = GLU) 149 mg/dL 74-106 H BLOOD UREA NITROGEN (test code = BUN) 42 mg/dL 7-18 H GLOMERULAR FILTRATION RATE (test code = GFR) 5 mL/min >=60 Estimated GFR by using Modified MDRD formula.Chronic kidney disease is defined as either kidney damageor GFR <60 mL/min/1.73 m2 for >3 months. CREATININE (test code = CREAT) 8.00 mg/dL 0.55-1.02 H Note change in reference range due to change in reagent. BUN/CREATININE RATIO (test code = BUN/CREA) 5.3 10-20 L CALCIUM (test code = CA) 7.7 mg/dL 8.5-10.1 L HEPATIC FUNCTION [id number] 05:05:00* Test Item Value Reference Range Interpretation Comments TOTAL PROTEIN (test code = PROT) 6.7 gram/dL 6.4-8.2 N ALBUMIN (test code = ALB) 2.8 g/dL 3.4-5.0 L GLOBULIN (test code = GLOB) 3.9 gram/dL 2.7-4.2 N ALBUMIN/GLOBULIN RATIO (test code = A/G) 0.7 0.75-1.50 L BILIRUBIN TOTAL (test code = BILT) 0.50 mg/dL 0.0-1.0 N BILIRUBIN DIRECT (test code = BILD) 0.17 mg/dL 0.0-0.20 N SGOT/AST (test code = AST) 31 IUnit/L 15-37 N SGPT/ALT (test code = ALT) 29 IUnit/L 12-78 N ALKALINE PHOSPHATASE TOTAL (test code = ALKP) 163 IUnit/L 45-117 H Note change in reference range due to change in reagent. [id number] 05:05:00* Test Item Value Reference Range Interpretation Comments MAGNESIUM (test code = MAG) 2.0 mg/dL 1.8-2.4 N [id number] 05:05:00* Test Item Value Reference Range Interpretation Comments TROPONIN-I (test code = TROPI) <0.015 ng/mL 0-0.045 N [id number] 05:05:00* Test Item Value Reference Range Interpretation Comments SALICYLATE (test code = LIZABETH) < 1.7 mg/dL 2.8-20.0 L VALPROIC ACID (DEPAKENE)2019-10-30 05:05:00* Test Item Value Reference Range Interpretation Comments VALPROIC ACID (DEPAKENE) (test code = VALP) <3.0 mcg/mL 50.0-100.0 L CBC W/AUTO [id number] 04:56:00* Test Item Value Reference Range Interpretation Comments WHITE BLOOD CELL (test code = WBC) 4.5 K/mm3 4.5-12.5 N RED BLOOD CELL (test code = RBC) 3.19 mill/mm3 3.7-5.2 L HEMOGLOBIN (test code = HGB) 10.3 gram/dL 11.5-15.5 L HEMATOCRIT (test code = HCT) 35.3 % 36.0-46.0 L MEAN CELL VOLUME (test code = MCV) 110.7 fL 80-98 H MEAN CELL HGB (test code = MCH) 32.3 picogram 27.0-33.0 N MEAN CELL HGB CONCETRATION (test code = MCHC) 29.2 gram/dL 33.0-36. 0 L RED CELL DISTRIBUTION WIDTH (test code = RDW) 17.8 % 11.6-16. 2 H RED CELL DISTRIBUTION WIDTH SD (test code = RDW-SD) 73.2 fL 37 .0-51.0 H PLATELET COUNT (test code = PLT) 142 K/mm3 150-450 L MEAN PLATELET VOLUME (test code = MPV) 9.5 fL 6.7-11.0 N NEUTROPHIL % (test code = NT%) 73.6 % 39.0-69.0 H IMMATURE GRANULOCYTE % (test code = IG%) 0.4 % 0.0-5.0 N LYMPHOCYTE % (test code = LY%) 12.7 % 25.0-55.0 L MONOCYTE % (test code = MO%) 6.2 % 0.0-10.0 N EOSINOPHIL % (test code = EO%) 6.9 % 0.0-5.0 H BASOPHIL % (test code = BA%) 0.2 % 0.0-1.0 N NUCLEATED RBC % (test code = NRBC%) 0.0 % 0-0 N NEUTROPHIL # (test code = NT#) 3.31 K/mm3 1.8-7.7 N IMMATURE GRANULOCYTE # (test code = IG#) 0.02 x10 3/uL 0-0.03 N LYMPHOCYTE # (test code = LY#) 0.57 K/mm3 1.0-5.0 L MONOCYTE # (test code = MO#) 0.28 K/mm3 0-0.8 N EOSINOPHIL # (test code = EO#) 0.31 K/mm3 0.0-0.5 N BASOPHIL # (test code = BA#) 0.01 K/mm3 0.0-0.2 N NUCLEATED RBC # (test code = NRBC#) 0.00 K/mm3 0.0-0.1 N MANUAL DIFF REQUIRED (test code = MDIFF) NO, ONLY SCAN NEEDED DIFFERENTIAL [id number] 04:56:00* Test Item Value Reference Range Interpretation Comments STAIN ACCEPTABILITY (test code = STN ACCEPTABLE) STAIN ACCEPTABLE POLYCHROMASIA (test code = POLC) 1+ ANISOCYTOSIS (test code = ANISO) 1+ MACROCYTOSIS (test code = MACR) 1+ PLATELET ESTIMATE (test code = PLTEST) ADEQUATE PLATELET MORPHOLOGY (test code = PLTMORPH) NORMAL - XR CHEST 1 [id number] 04:47:00 FAX: Andre Woods MD [place]: [address]: REG Name: TAI MANLEY [facility] : [birth year] Age/S: 59/F [address] [facility] Unit #: [id number] Loc: [place] [address] Phys: Andre Woods MD Acct: [id number] Dis Date: Status: REG ER PHONE #: [phone] Exam Date: 10/30/2019 0436 FAX #: [phone] Reason: CODE SEPSIS EXAMS: CPT CODE: [id number] XR CHEST 1 V 73345 DICTATION LOCATION: H48 HISTORY: Female, 59 years of age with fever and dyspnea, CODE SEPSIS EXAM: CHEST X-RAY, ONE VIEW COMPARISON: None COMMENT: Frontal view of the chest is provided. ET tube has been inserted with tip approximately 3 cm down the right mainstem bronchus. Enteric tube is present with tip in the stomach. Dense bilateral alveolar and int erstitial opacities are present. No significant pleural effusion. Cardiac silhouette is within normal limits. No acute bony abnormalities. IMPRESSION: 1. Right mainstem bronchus intubation. Recommend retracting ET tube by at least 4 to 5 cm. 2. Enteric tube in sa tisfactory position. 3. Dense bilateral perihilar lung opacities. Edema versus pneumonia. Electronically Signed by Whitney Peterson MD on 03/2020 at 6947 Reported and signed by: Whitney Peterson MD CC: Andre Woods MD Technologist: Mary Valdez Trnscrd Brent e/Time/By: 10/30/2019 (0447) : By: BanW Orig Print D/T: S: 2019 (045) PAGE 1 Signed Report - XR CHEST 1 [id number] 04:47:00 FAX: Andre Woods MD [place]: [address]: ADM Name: TAI MANLEY [facility] : [birth year] Age/S: 59/F [address] [facility] Unit #: [id number] Loc: [address] [address] Phys: Andre Woods MD Acct: [id number] Dis Date: Status: ADM IN PHONE #: [phone] Exam Date: 10/30/2019 0430 FAX #: [phone] Reason: CODE SEPSIS EXAMS: CPT CODE: [id number] XR CHEST 1 V [id number] DICTATION LOCATION: H48 HISTORY: Female, 59 years of age with fever and dyspnea, CODE SEPSIS EXAM: CHEST X-RAY, ONE VIEW COMPARISON: None COMMENT: Frontal view of the chest is provided. ET tube has been inserted with tip approximately 3 cm down the right mainstem bronchus. Enteric tube is present with tip in the stomach. Dense bilateral alveolar and int erstitial opacities are present. No significant pleural effusion. Cardiac silhouette is within normal limits. No acute bony abnormalities. IMPRESSION: 1. Right mainstem bronchus intubation. Recommend retracting ET tube by at least 4 to 5 cm. 2. Enteric tube in sa tisfactory position. 3. Dense bilateral perihilar lung opacities. Edema versus pneumonia. Electronically Signed by Whitney Peterson MD on 03/2020 at 0447 Reported and signed by: Whitney Peterson MD CC: Andre Woods MD Technologist: Mary Valdez Trnscrd Brent e/Time/By: 10/30/2019 (044) : By: [email or web address] Orig Print D/T: S: 2019 (045) PAGE 1 Signed Report LACTIC [id number] 04:46:00* Test Item Value Reference Range Interpretation Comments LACTIC ACID (test code = LACT) 2.0 mmol/L 0.4-1.9 H Results called to [id number] by [email or web address] 10/30/19 0446Critical results verified and read back by Nurse? Y BASIC METABOLIC [id number] 04:45:00* Test Item Value Reference Range Interpretation Comments SODIUM (test code = NA) 140 mmol/L 136-145 N POTASSIUM (test code = K) 5.6 mmol/L 3.5-5.1 H CHLORIDE (test code = CL) 105.0 mmol/L 98-107 N CARBON DIOXIDE (test code = CO2) 23.0 mmol/L 21-32 N ANION GAP (test code = GAP) 17.6 10-20 N GLUCOSE (test code = GLU) 149 mg/dL 74-106 H BLOOD UREA NITROGEN (test code = BUN) 42 mg/dL 7-18 H GLOMERULAR FILTRATION RATE (test code = GFR) mL/min >=60 CREATININE (test code = CREAT) mg/dL 0.55-1.02 BUN/CREATININE RATIO (test code = BUN/CREA) 10-20 CALCIUM (test code = CA) 7.7 mg/dL 8.5-10.1 L HEPATIC FUNCTION [id number] 04:45:00* Test Item Value Reference Range Interpretation Comments TOTAL PROTEIN (test code = PROT) gram/dL 6.4-8.2 ALBUMIN (test code = ALB) 2.8 g/dL 3.4-5.0 L GLOBULIN (test code = GLOB) gram/dL 2.7-4.2 ALBUMIN/GLOBULIN RATIO (test code = A/G) 0.75-1.50 BILIRUBIN TOTAL (test code = BILT) mg/dL 0.0-1.0 BILIRUBIN DIRECT (test code = BILD) mg/dL 0.0-0.20 SGOT/AST (test code = AST) IUnit/L 15-37 SGPT/ALT (test code = ALT) IUnit/L 12-78 ALKALINE PHOSPHATASE TOTAL (test code = ALKP) IUnit/L 45-117 [id number] 04:45:00* Test Item Value Reference Range Interpretation Comments MAGNESIUM (test code = MAG) 2.0 mg/dL 1.8-2.4 N [id number] 04:45:00* Test Item Value Reference Range Interpretation Comments TROPONIN-I (test code = TROPI) ng/mL 0-0.045 [id number] 04:45:00* Test Item Value Reference Range Interpretation Comments SALICYLATE (test code = LIZABETH) mg/dL 2.8-20.0 VALPROIC ACID (DEPAKENE)2019-10-30 04:45:00* Test Item Value Reference Range Interpretation Comments VALPROIC ACID (DEPAKENE) (test code = VALP) mcg/mL 50.0-100.0 PROTHROMBIN [id number] 04:41:00* Test Item Value Reference Range Interpretation Comments PROTHROMBIN TIME PATIENT (test code = PTP) 11.7 seconds 9.0-14.0 N INTERNATIONAL NORMAL RATIO (test code = INR) 1.0 0.8-1.2 N The therapeutic range for oral anticoagulant therapy formost indications is an international normalized ratio (INR)of between 2.0 and 3.0. The recommended therapeutic INRrange for various clinical situations is listed below: Clinical Situation INR range Pulmonary e mbolism treatment (2.0-3.0)Venous thrombosis treatmentVenous thrombosis prophylaxis (high risk surgery)Prevention of systemic embolism from: Acute myocardial infarction Valvular heart disease Atrial fibrillation Mechanical prosthetic heart valves (2.5-3.5) IS PATIENT ON ANTICOAGULANTS? NTHROMBOPLASTIN TIME [id number] 04:41:00* Test Item Value Reference Range Interpretation Comments THROMBOPLASTIN TIME PARTIAL (test code = PTT) 36.4 seconds 25.0-36. 5 N IS PATIENT ON ANTICOAGULANTS? NBASIC METABOLIC [id number] 04:39:00* Test Item Value Reference Range Interpretation Comments SODIUM (test code = NA) 140 mmol/L 136-145 N POTASSIUM (test code = K) 5.6 mmol/L 3.5-5.1 H CHLORIDE (test code = CL) 105.0 mmol/L 98-107 N CARBON DIOXIDE (test code = CO2) mmol/L 21-32 ANION GAP (test code = GAP) 10-20 GLUCOSE (test code = GLU) mg/dL 74-106 BLOOD UREA NITROGEN (test code = BUN) mg/dL 7-18 GLOMERULAR FILTRATION RATE (test code = GFR) mL/min >=60 CREATININE (test code = CREAT) mg/dL 0.55-1.02 BUN/CREATININE RATIO (test code = BUN/CREA) 10-20 CALCIUM (test code = CA) mg/dL 8.5-10.1 HEPATIC FUNCTION [id number] 04:39:00* Test Item Value Reference Range Interpretation Comments TOTAL PROTEIN (test code = PROT) gram/dL 6.4-8.2 ALBUMIN (test code = ALB) g/dL 3.4-5.0 GLOBULIN (test code = GLOB) gram/dL 2.7-4.2 ALBUMIN/GLOBULIN RATIO (test code = A/G) 0.75-1.50 BILIRUBIN TOTAL (test code = BILT) mg/dL 0.0-1.0 BILIRUBIN DIRECT (test code = BILD) mg/dL 0.0-0.20 SGOT/AST (test code = AST) IUnit/L 15-37 SGPT/ALT (test code = ALT) IUnit/L 12-78 ALKALINE PHOSPHATASE TOTAL (test code = ALKP) IUnit/L 45-117 [id number] 04:39:00* Test Item Value Reference Range Interpretation Comments MAGNESIUM (test code = MAG) mg/dL 1.8-2.4 [id number] 04:39:00* Test Item Value Reference Range Interpretation Comments TROPONIN-I (test code = TROPI) ng/mL 0-0.045 [id number] 04:39:00* Test Item Value Reference Range Interpretation Comments SALICYLATE (test code = LIZABETH) mg/dL 2.8-20.0 VALPROIC ACID (DEPAKENE)2019-10-30 04:39:00* Test Item Value Reference Range Interpretation Comments VALPROIC ACID (DEPAKENE) (test code = VALP) mcg/mL 50.0-100.0 CT MAXJAMA REN/MASHA [id number] 14:27:00 [place] [address] Patient Name: TAI GRANT MR #: [id number] : 1960 Age/Sex: 59/F Req #: [id number] Adm Physician: Ordered by: MERI LEE, JASPREET Ron MD Report #: [id number] Location: CT Room/Bed: Procedure: 1119-[address]/CT MAXIO FAC/PARANAS WO Exam Date: 09/12/19 Carmen jamil Time: 1430 REPORT STATUS: Signed EXAMINATION: CT of the face HISTORY: Status post fall, trauma, pain C OMPARISON: None available TECHNIQUE: Multidetector helical axial images were a cquired through the face without contrast and were reconstructed in bone and s oft tissue algorithms. Images were viewed in multiplanar format. Dose modul ation, iterative reconstruction, and/or weight based adjustment of the mA/kV w as utilized to reduce the radiation dose to as low as reasonably achievable. FINDINGS: Bones: No acute facial fractures. Atrophy of the mandible and the maxilla in an edentulous patient. Facial soft tissues: Unrema rkable. Paranasal sinuses and drainage pathways: The frontal, ethmoi lai, sphenoid and maxillary sinuses are clear. The ostiomeatal units, fronto -nasal and spheno-ethmoidal recesses are clear. Orbits contents: Unrema rkable. Probably prior lens in the left globe. Nasal septum: Deviate d to the left. 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 Anatomic variations: No significant anatomic variations. Dentition: No acute abnormality of the visualized teeth. IMPRESSION: No acute facial fractures. Signed by: Dr. Randall Haque M.D. on 09/12/2019 2:37 PM Dictated By: RANDALL HAQUE MD 143 Transcribed By: ROBI on 09/12/19 143 COPY TO: JASPREET OBRIEN CT BRAIN [id number] 14:26:00 [place] [address] Patient Name: TAI GRANT MR #: [id number] : 1960 Age/Sex: 59/F Req #: [id number] Adm Physician: Ordered by: MERI LEE, JASPREET Ron MD Report #: [id number] Location: CT Room/Bed: Procedure: 1119-[address]/CT BRAIN WO Exam Date: 09/12/19 Exam Time: 1430 REPORT STATUS: Signed EXAMINATI ON: Head CT HISTORY: Head and facial trauma, pain COMPARISON: Head CT TECHNIQUE: Multidetector axial images were obtained without contrast f rom the foramen magnum to the vertex . The images were reconstructed using bra in and bone algorithms. Thin section brain images were reformatted into coron al and sagittal planes. Image quality: Motion/streaking artifact limits the evaluation of the skull base and posterior cranial fossa. Dose modulation, i terative reconstruction, and/or weight based adjustment of the mA/kV was utili zed to reduce the radiation dose to as low as reasonably achievable. F INDINGS: Parenchyma: 1. No abnormal densities. 2. No mass or he morrhage. No CT evidence of acute territorial vascular insult. Extra-axial spaces:No abnormal density. No extra-axial fluid collections Brain volume: Normal for age. Ventricles: No hydrocephalus or displacem ent. Arteries: No density suggestive of thrombus. Dural sinuses : No abnormal density. Extra-axial spaces: No abnormal density. Foramen magnum: No mass, Chiari malformation, or basilar invagination. S kobe: No obvious mass. Paranasal/mastoid sinuses: Imaged portions unrem arkable. Skull/Scalp: No lytic or blastic lesions. No fractures. IMPRESSION: No intracranial abnormalities, unchanged compared to head CT of 03/13/2017. Signed by: Dr. Randall Haque M.D. on 09/12/2019 2:27 PM D ictated By: RANDALL HAQUE MD 1427 Transcribed By: ROBI on 09/12/19 1427 COPY TO: JASPREET JEREZ [id number] 14:14:00* Test Item Value Reference Range Interpretation Comments GLUBED (test code = GLUBED) 260 mg/dL 70-110 H [id number] 11:32:00* Test Item Value Reference Range Interpretation Comments GLUBED (test code = GLUBED) 149 mg/dL 70-110 H [id number] 06:53:00* Test Item Value Reference Range Interpretation Comments GLUBED (test code = GLUBED) 113 mg/dL 70-110 H [id number] 17:00:00* Test Item Value Reference Range Interpretation Comments GLUBED (test code = GLUBED) 127 mg/dL 70-110 H [id number] 08:33:00* Test Item Value Reference Range Interpretation Comments GLUBED (test code = GLUBED) 105 mg/dL 70-110 N BASIC METABOLIC [id number] 07:30:00* Test Item Value Reference Range Interpretation Comments SODIUM (test code = NA) 141 mmol/l 134.0-147.0 N POTASSIUM (test code = K) 4.6 mmol/L 3.6-5.2 N CHLORIDE (test code = CL) 100 mmol/l 98.0-107.0 N CARBON DIOXIDE (test code = CO2) 24.7 mmol/l 21.0-33.0 N ANION GAP (test code = GAP) 20.9 0-20 H GLUCOSE (test code = GLU) 84 mg/dl 70.0-110.0 N BLOOD UREA NITROGEN (test code = BUN) 48 mg/dl 7.0-18.0 H CREATININE (test code = CREAT) 6.35 mg/dL 0.60-1.30 HH GFR NON BLACK (test code = GFRNONBLACK) 7 mL/min 90-95 L GFR BLACK (test code = GFRBLACK) 9 mL/min 109-115 L CALCIUM (test code = CA) 7.4 mg/dl 8.0-10.5 L CBC W/AUTO [id number] 07:28:00* Test Item Value Reference Range Interpretation Comments WHITE BLOOD CELL (test code = WBC) 5.8 K/mm3 4.5-11.0 N RED BLOOD CELL (test code = RBC) 3.02 M/mm3 3.80-5.20 L HEMOGLOBIN (test code = HGB) 9.4 gm/dL 12.0-16.0 L HEMATOCRIT (test code = HCT) 31.5 % 36.0-48.0 L MEAN CELL VOLUME (test code = MCV) 104.3 UM3 82.0-99.0 H MEAN CELL HGB (test code = MCH) 31.1 UUG 25.5-32.5 N MEAN CELL HGB CONCETRATION (test code = MCHC) 29.8 gm/dL 29.0-35. 5 N RED CELL DISTRIBUTION WIDTH (test code = RDW) 14.8 % 11.5-15. 0 N RED CELL DISTRIBUTION WIDTH SD (test code = RDW-SD) 57.0 fL 34 .8-50.2 H PLATELET COUNT (test code = PLT) 150 K/mm3 150-400 N MEAN PLATELET VOLUME (test code = MPV) 11.0 fl 7.4-10.4 H NEUTROPHIL % (test code = NT%) 58.9 % 49.0-76.0 N IMMATURE GRANULOCYTE % (test code = IG%) 4.1 % 0.0-0.4 H LYMPHOCYTE % (test code = LY%) 23.3 % 23.0-38.0 N MONOCYTE % (test code = MO%) 9.6 % 1.0-10.0 N EOSINOPHIL % (test code = EO%) 3.4 % 1.0-5.0 N BASOPHIL % (test code = BA%) 0.7 % 0.0-1.0 N NEUTROPHIL # (test code = NT#) 3.4 K/mm3 2.4-6.3 N IMMATURE GRANULOCYTE # (test code = IG#) 0.24 x10 3/uL 0.00-0.07 H LYMPHOCYTE # (test code = LY#) 1.4 K/mm3 1.2-4.0 N MONOCYTE # (test code = MO#) 0.6 K/mm3 0.0-0.6 N EOSINOPHIL # (test code = EO#) 0.2 K/MM3 0.0-0.7 N BASOPHIL # (test code = BA#) 0.0 K/mm3 0.0-0.2 N [id number] 18:55:00* Test Item Value Reference Range Interpretation Comments GLUBED (test code = GLUBED) 223 mg/dL 70-110 H COLON [id number] 14:56:00 RUN DATE: 01/24/19 [facility] - Lab PAGE 1 RUN TIME: 1456 Specimen Inqui ry RUN USER: INTERFACE PATIENT: TAI GRANT ACCT #: [id number] LOC: [place] U #: [id number] AGE/SX: 58/F ROOM: [facility] RE01/16/19REG DR: Guanakito Ortez : 64 BED: 1 DIS: STATUS: ADM IN TLOC: SPEC #: [id number] RECD: 01/23/19 STATUS: NITO CAITLIN #: [id number] JAZMINE: 01/23/19- SUBM DR: Guanakito Ortez MD ENTERED: 01/23/19 SP TYPE: COLONBX OTHR DR: No Loreta imani or Family Physician Self Referred Judith Yin MD See Bertha lee MDORDERED: REQUEST COPIES TO: No Primary or Family Physician Self Referred Guanakito Ortez MD [address] [place] [address] [email or web address] Judith Lai MD [facility] [place] [address] OTHER PHONE [phone] (CELL) Bertha Martin MD [address] [place] [address] PROCEDURES: REQUEST (01/23/19-153) TISSUES: A. COLON, NOS - RANDOM COLON BX B. COLON, NOS - DESC.COLON POLYP CLINICAL HISTORY Anemia, +FOBT, diarrhea, descending colon polyp, internal hemorrhoids FINAL DIAGNOSIS A. RANDOM COLON BIOPSIES: MILD NON SPECIFIC C HRONIC COLITIS. NO THICKENING OF BASEMENT MEMBRANE SEEN ON TRICHROME STA IN. B. DESCENDING COLON POLYP: CONTINU ED ON NEXT PAGE RUN DATE: 01/24/19 [facility] nd - Lab PAGE 2 RUN TIME: 1456 Specimen Inquiry RUN USER: INTERFACE SPEC #: [id number] PAT IENT: TAI GRANT #[id number] (Continued) FINAL DIAGNOSIS (Continued) TUBULAR ADENOMA. CPT COD E: 29563 X 2, 45947 MACROSCOPIC A. Specimen is received in formalin l abeled "random colon bx" and consists of two brown-pinktissue fragments measuring in aggregate 0.7 x 0.3 x 0.2 cm. One cassette. B. Specimen is received in form rolanda labeled "descending colon polyp" and consists of twotan-yellow soft tissue fragments measuring in aggregate 0.4 x 0.2 x 0.2 cm. One cassette. M ICROSCOPIC SEE DIAGNOSIS Signed SIGNATURE ON FILE Adarsh Weller. 01/24/19 1456 END OF REPORT - XR ABDOMEN 1 V 2019-01-24 14:41:00 FAX: Guanakito Jennings [phone] [place]: St: [facility] FAX: Oneyda Dwyer MD [phone] Name: TAI GRANT [facility] : 1960 Age/S: 58/F [address] [facility] Unit #: [id number] Loc: [address] Phys: [place] [address] Acct: [id number] Dis Date: Status: ADM IN PHONE #: [phone] Exam Date: 01/24/2019 1420 FAX #: [phone] Reason: abdominal pain EXAMS: CPT CODE: [id number] XR ABDOMEN 1 V 59923 REASON FOR EXAM: Abdominal pain. Abdomen, single view. The gas pattern appears to be normal. Stool content appropriate. No unusual calcifications. Embolization coils possibly at the lower part of the right renal region. Possible cholecystectomy. Bony structures intact IMPRESSION: Normal gas pattern and stool content. No acute abnormality. Location: 9 at 1441 Reported and signed by: Danilo Nieves M.D. CC: Guanakito Ortez MD; Oneyda Reynaga MD Technologist: JUANCARLOS WALLACE Trnscrd Date/Time/By: 01/24/2019 (8467) : By: [facility] PAGE 1 Signed Report FAX: Guanakito Jennings [phone] [place]: St: ADM FAX: Oneyda Dwyer MD [phone] Name: TAI GRANT [facility] : 1960 A ge/S: 58/F [address] [facility] Unit #: [id number] Loc : [address] Phys: [place] [address] Acct: [id number] Dis Date: Status: ADM IN PHONE #: [phone] E xam Date: 01/24/2019 1420 FAX #: [phone] Reas on: abdominal pain EXAMS: CPT CODE: [id number] XR ABDOMEN 1 V 01828 <Continued> Orig Print D/T: S: 01/24/2019 (8906) PAGE 2 Signed Report [id number] 07:46:00* Test Item Value Reference Range Interpretation Comments GLUBED (test code = GLUBED) 94 mg/dL 70-110 N CBC W/AUTO [id number] 07:44:00* Test Item Value Reference Range Interpretation Comments WHITE BLOOD CELL (test code = WBC) 7.4 K/mm3 4.5-11.0 N RED BLOOD CELL (test code = RBC) 3.20 M/mm3 3.80-5.20 L HEMOGLOBIN (test code = HGB) 10.1 gm/dL 12.0-16.0 L HEMATOCRIT (test code = HCT) 32.9 % 36.0-48.0 L MEAN CELL VOLUME (test code = MCV) 102.8 UM3 82.0-99.0 H MEAN CELL HGB (test code = MCH) 31.6 UUG 25.5-32.5 N MEAN CELL HGB CONCETRATION (test code = MCHC) 30.7 gm/dL 29.0-35. 5 N RED CELL DISTRIBUTION WIDTH (test code = RDW) 14.7 % 11.5-15. 0 N RED CELL DISTRIBUTION WIDTH SD (test code = RDW-SD) 55.7 fL 34 .8-50.2 H PLATELET COUNT (test code = PLT) 185 K/mm3 150-400 N MEAN PLATELET VOLUME (test code = MPV) 10.3 fl 7.4-10.4 N NEUTROPHIL % (test code = NT%) 74.7 % 49.0-76.0 N IMMATURE GRANULOCYTE % (test code = IG%) 2.8 % 0.0-0.4 H LYMPHOCYTE % (test code = LY%) 13.0 % 23.0-38.0 L MONOCYTE % (test code = MO%) 6.1 % 1.0-10.0 N EOSINOPHIL % (test code = EO%) 3.0 % 1.0-5.0 N BASOPHIL % (test code = BA%) 0.4 % 0.0-1.0 N NEUTROPHIL # (test code = NT#) 5.5 K/mm3 2.4-6.3 N IMMATURE GRANULOCYTE # (test code = IG#) 0.21 x10 3/uL 0.00-0.07 H LYMPHOCYTE # (test code = LY#) 1.0 K/mm3 1.2-4.0 L MONOCYTE # (test code = MO#) 0.5 K/mm3 0.0-0.6 N EOSINOPHIL # (test code = EO#) 0.2 K/MM3 0.0-0.7 N BASOPHIL # (test code = BA#) 0.0 K/mm3 0.0-0.2 N BASIC METABOLIC [id number] 07:43:00* Test Item Value Reference Range Interpretation Comments SODIUM (test code = NA) 141 mmol/l 134.0-147.0 N POTASSIUM (test code = K) 3.6 mmol/L 3.6-5.2 N CHLORIDE (test code = CL) 101 mmol/l 98.0-107.0 N CARBON DIOXIDE (test code = CO2) 29.7 mmol/l 21.0-33.0 N ANION GAP (test code = GAP) 13.9 0-20 N GLUCOSE (test code = GLU) 89 mg/dl 70.0-110.0 N BLOOD UREA NITROGEN (test code = BUN) 21 mg/dl 7.0-18.0 H CREATININE (test code = CREAT) 4.48 mg/dL 0.60-1.30 HH GFR NON BLACK (test code = GFRNONBLACK) 11 mL/min 90-95 L GFR BLACK (test code = GFRBLACK) 13 mL/min 109-115 L CALCIUM (test code = CA) 7.9 mg/dl 8.0-10.5 L [id number] 00:59:00* Test Item Value Reference Range Interpretation Comments GLUBED (test code = GLUBED) 136 mg/dL 70-110 H [id number] 20:07:00* Test Item Value Reference Range Interpretation Comments GLUBED (test code = GLUBED) 131 mg/dL 70-110 H [id number] 16:15:00* Test Item Value Reference Range Interpretation Comments GLUBED (test code = GLUBED) 94 mg/dL 70-110 N [id number] 11:19:00* Test Item Value Reference Range Interpretation Comments GLUBED (test code = GLUBED) 86 mg/dL 70-110 N BASIC METABOLIC [id number] 07:32:00* Test Item Value Reference Range Interpretation Comments SODIUM (test code = NA) 139 mmol/l 134.0-147.0 N POTASSIUM (test code = K) 5.7 mmol/L 3.6-5.2 H IS SAMPLE HEMOLYSED? NO CHLORIDE (test code = CL) 100 mmol/l 98.0-107.0 N CARBON DIOXIDE (test code = CO2) 27.7 mmol/l 21.0-33.0 N ANION GAP (test code = GAP) 17.0 0-20 N GLUCOSE (test code = GLU) 81 mg/dl 70.0-110.0 N BLOOD UREA NITROGEN (test code = BUN) 39 mg/dl 7.0-18.0 H CREATININE (test code = CREAT) 7.25 mg/dL 0.60-1.30 HH GFR NON BLACK (test code = GFRNONBLACK) 6 mL/min 90-95 L GFR BLACK (test code = GFRBLACK) 7 mL/min 109-115 L CALCIUM (test code = CA) 9.3 mg/dl 8.0-10.5 N [id number] 07:32:00* Test Item Value Reference Range Interpretation Comments PHOSPHOROUS (test code = PHOS) 3.9 mg/dl 2.5-4.9 N [id number] 07:32:00* Test Item Value Reference Range Interpretation Comments MAGNESIUM (test code = MAG) 2.8 mg/dl 1.8-2.4 H CBC W/AUTO [id number] 07:30:00* Test Item Value Reference Range Interpretation Comments WHITE BLOOD CELL (test code = WBC) 8.0 K/mm3 4.5-11.0 N RED BLOOD CELL (test code = RBC) 3.37 M/mm3 3.80-5.20 L HEMOGLOBIN (test code = HGB) 10.4 gm/dL 12.0-16.0 L HEMATOCRIT (test code = HCT) 35.3 % 36.0-48.0 L MEAN CELL VOLUME (test code = MCV) 104.7 UM3 82.0-99.0 H MEAN CELL HGB (test code = MCH) 30.9 UUG 25.5-32.5 N MEAN CELL HGB CONCETRATION (test code = MCHC) 29.5 gm/dL 29.0-35. 5 N RED CELL DISTRIBUTION WIDTH (test code = RDW) 14.6 % 11.5-15. 0 N RED CELL DISTRIBUTION WIDTH SD (test code = RDW-SD) 56.6 fL 34 .8-50.2 H PLATELET COUNT (test code = PLT) 171 K/mm3 150-400 N MEAN PLATELET VOLUME (test code = MPV) 10.5 fl 7.4-10.4 H NEUTROPHIL % (test code = NT%) 67.3 % 49.0-76.0 N IMMATURE GRANULOCYTE % (test code = IG%) 4.2 % 0.0-0.4 H LYMPHOCYTE % (test code = LY%) 17.8 % 23.0-38.0 L MONOCYTE % (test code = MO%) 6.5 % 1.0-10.0 N EOSINOPHIL % (test code = EO%) 3.7 % 1.0-5.0 N BASOPHIL % (test code = BA%) 0.5 % 0.0-1.0 N NEUTROPHIL # (test code = NT#) 5.4 K/mm3 2.4-6.3 N IMMATURE GRANULOCYTE # (test code = IG#) 0.34 x10 3/uL 0.00-0.07 H LYMPHOCYTE # (test code = LY#) 1.4 K/mm3 1.2-4.0 N MONOCYTE # (test code = MO#) 0.5 K/mm3 0.0-0.6 N EOSINOPHIL # (test code = EO#) 0.3 K/MM3 0.0-0.7 N BASOPHIL # (test code = BA#) 0.0 K/mm3 0.0-0.2 N [id number] 07:19:00* Test Item Value Reference Range Interpretation Comments GLUBED (test code = GLUBED) 70 mg/dL 70-110 N [id number] 21:42:00* Test Item Value Reference Range Interpretation Comments GLUBED (test code = GLUBED) 113 mg/dL 70-110 H [id number] 16:51:00* Test Item Value Reference Range Interpretation Comments GLUBED (test code = GLUBED) 90 mg/dL 70-110 N [id number] 11:21:00* Test Item Value Reference Range Interpretation Comments GLUBED (test code = GLUBED) 181 mg/dL 70-110 H COMPREHENSIVE METABOLIC [id number] 07:55:00* Test Item Value Reference Range Interpretation Comments SODIUM (test code = NA) 141 mmol/l 134.0-147.0 N POTASSIUM (test code = K) 4.3 mmol/L 3.6-5.2 N CHLORIDE (test code = CL) 101 mmol/l 98.0-107.0 N CARBON DIOXIDE (test code = CO2) 25.6 mmol/l 21.0-33.0 N ANION GAP (test code = GAP) 18.7 0-20 N GLUCOSE (test code = GLU) 146 mg/dl 70.0-110.0 H BLOOD UREA NITROGEN (test code = BUN) 29 mg/dl 7.0-18.0 H CREATININE (test code = CREAT) 5.92 mg/dL 0.60-1.30 HH GFR NON BLACK (test code = GFRNONBLACK) 8 mL/min 90-95 L GFR BLACK (test code = GFRBLACK) 9 mL/min 109-115 L TOTAL PROTEIN (test code = PROT) 6.8 gm/dL 6.4-8.2 N ALBUMIN (test code = ALB) 2.8 gm/dl 3.2-4.7 L CALCIUM (test code = CA) 9.2 mg/dl 8.0-10.5 N BILIRUBIN TOTAL (test code = BILT) 0.3 mg/dl 0.0-1.0 N SGOT/AST (test code = AST) 15 Units/L 15.0-37.0 N SGPT/ALT (test code = ALT) 11 Units/L 12.0-78.0 L ALKALINE PHOSPHATASE TOTAL (test code = ALKP) 155 Units/L 50.0-136 .0 H [id number] 07:55:00* Test Item Value Reference Range Interpretation Comments MAGNESIUM (test code = MAG) 2.0 mg/dl 1.8-2.4 N [id number] 07:20:00* Test Item Value Reference Range Interpretation Comments GLUBED (test code = GLUBED) 119 mg/dL 70-110 H CBC W/AUTO [id number] 07:20:00* Test Item Value Reference Range Interpretation Comments WHITE BLOOD CELL (test code = WBC) 7.3 K/mm3 4.5-11.0 N RED BLOOD CELL (test code = RBC) 3.15 M/mm3 3.80-5.20 L HEMOGLOBIN (test code = HGB) 10.1 gm/dL 12.0-16.0 L HEMATOCRIT (test code = HCT) 32.4 % 36.0-48.0 L MEAN CELL VOLUME (test code = MCV) 102.9 UM3 82.0-99.0 H MEAN CELL HGB (test code = MCH) 32.1 UUG 25.5-32.5 N MEAN CELL HGB CONCETRATION (test code = MCHC) 31.2 gm/dL 29.0-35. 5 N RED CELL DISTRIBUTION WIDTH (test code = RDW) 14.8 % 11.5-15. 0 N RED CELL DISTRIBUTION WIDTH SD (test code = RDW-SD) 55.2 fL 34 .8-50.2 H PLATELET COUNT (test code = PLT) 170 K/mm3 150-400 N MEAN PLATELET VOLUME (test code = MPV) 10.2 fl 7.4-10.4 N NEUTROPHIL % (test code = NT%) 56.3 % 49.0-76.0 N IMMATURE GRANULOCYTE % (test code = IG%) 7.5 % 0.0-0.4 H LYMPHOCYTE % (test code = LY%) 21.9 % 23.0-38.0 L MONOCYTE % (test code = MO%) 8.9 % 1.0-10.0 N EOSINOPHIL % (test code = EO%) 4.9 % 1.0-5.0 N BASOPHIL % (test code = BA%) 0.5 % 0.0-1.0 N NEUTROPHIL # (test code = NT#) 4.1 K/mm3 2.4-6.3 N IMMATURE GRANULOCYTE # (test code = IG#) 0.55 x10 3/uL 0.00-0.07 H LYMPHOCYTE # (test code = LY#) 1.6 K/mm3 1.2-4.0 N MONOCYTE # (test code = MO#) 0.7 K/mm3 0.0-0.6 H EOSINOPHIL # (test code = EO#) 0.4 K/MM3 0.0-0.7 N BASOPHIL # (test code = BA#) 0.0 K/mm3 0.0-0.2 N [id number] 16:04:00* Test Item Value Reference Range Interpretation Comments GLUBED (test code = GLUBED) 108 mg/dL 70-110 N [id number] 11:49:00* Test Item Value Reference Range Interpretation Comments GLUBED (test code = GLUBED) 123 mg/dL 70-110 H [id number] 07:12:00* Test Item Value Reference Range Interpretation Comments GLUBED (test code = GLUBED) 98 mg/dL 70-110 N [id number] 23:04:00* Test Item Value Reference Range Interpretation Comments GLUBED (test code = GLUBED) 232 mg/dL 70-110 H [id number] 17:44:00* Test Item Value Reference Range Interpretation Comments GLUBED (test code = GLUBED) 169 mg/dL 70-110 H [id number] 16:56:00* Test Item Value Reference Range Interpretation Comments GLUBED (test code = GLUBED) 177 mg/dL 70-110 H CBC W/AUTO [id number] 11:42:00* Test Item Value Reference Range Interpretation Comments WHITE BLOOD CELL (test code = WBC) 7.6 K/mm3 4.5-11.0 N RED BLOOD CELL (test code = RBC) 3.26 M/mm3 3.80-5.20 L HEMOGLOBIN (test code = HGB) 10.2 gm/dL 12.0-16.0 L HEMATOCRIT (test code = HCT) 34.2 % 36.0-48.0 L MEAN CELL VOLUME (test code = MCV) 104.9 UM3 82.0-99.0 H MEAN CELL HGB (test code = MCH) 31.3 UUG 25.5-32.5 N MEAN CELL HGB CONCETRATION (test code = MCHC) 29.8 gm/dL 29.0-35. 5 N RED CELL DISTRIBUTION WIDTH (test code = RDW) 14.8 % 11.5-15. 0 N RED CELL DISTRIBUTION WIDTH SD (test code = RDW-SD) 57.7 fL 34 .8-50.2 H PLATELET COUNT (test code = PLT) 166 K/mm3 150-400 N MEAN PLATELET VOLUME (test code = MPV) 9.9 fl 7.4-10.4 N NEUTROPHIL % (test code = NT%) 68.8 % 49.0-76.0 N IMMATURE GRANULOCYTE % (test code = IG%) 5.1 % 0.0-0.4 H LYMPHOCYTE % (test code = LY%) 14.0 % 23.0-38.0 L MONOCYTE % (test code = MO%) 7.1 % 1.0-10.0 N EOSINOPHIL % (test code = EO%) 4.5 % 1.0-5.0 N BASOPHIL % (test code = BA%) 0.5 % 0.0-1.0 N NEUTROPHIL # (test code = NT#) 5.2 K/mm3 2.4-6.3 N IMMATURE GRANULOCYTE # (test code = IG#) 0.39 x10 3/uL 0.00-0.07 H LYMPHOCYTE # (test code = LY#) 1.1 K/mm3 1.2-4.0 L MONOCYTE # (test code = MO#) 0.5 K/mm3 0.0-0.6 N EOSINOPHIL # (test code = EO#) 0.3 K/MM3 0.0-0.7 N BASOPHIL # (test code = BA#) 0.0 K/mm3 0.0-0.2 N MACROCYTOSIS (test code = MACR) OCCASIONAL [id number] 11:36:00* Test Item Value Reference Range Interpretation Comments GLUBED (test code = GLUBED) 83 mg/dL 70-110 N BASIC METABOLIC [id number] 07:21:00* Test Item Value Reference Range Interpretation Comments SODIUM (test code = NA) 141 mmol/l 134.0-147.0 N POTASSIUM (test code = K) 3.7 mmol/L 3.6-5.2 N CHLORIDE (test code = CL) 102 mmol/l 98.0-107.0 N CARBON DIOXIDE (test code = CO2) 23.7 mmol/l 21.0-33.0 N ANION GAP (test code = GAP) 19.0 0-20 N GLUCOSE (test code = GLU) 178 mg/dl 70.0-110.0 H BLOOD UREA NITROGEN (test code = BUN) 23 mg/dl 7.0-18.0 H CREATININE (test code = CREAT) 6.16 mg/dL 0.60-1.30 HH GFR NON BLACK (test code = GFRNONBLACK) 7 mL/min 90-95 L GFR BLACK (test code = GFRBLACK) 9 mL/min 109-115 L CALCIUM (test code = CA) 8.3 mg/dl 8.0-10.5 N [id number] 07:11:00* Test Item Value Reference Range Interpretation Comments GLUBED (test code = GLUBED) 132 mg/dL 70-110 H CBC W/AUTO [id number] 06:56:00* Test Item Value Reference Range Interpretation Comments WHITE BLOOD CELL (test code = WBC) 7.6 K/mm3 4.5-11.0 N RED BLOOD CELL (test code = RBC) 3.26 M/mm3 3.80-5.20 L HEMOGLOBIN (test code = HGB) 10.2 gm/dL 12.0-16.0 L HEMATOCRIT (test code = HCT) 34.2 % 36.0-48.0 L MEAN CELL VOLUME (test code = MCV) 104.9 UM3 82.0-99.0 H MEAN CELL HGB (test code = MCH) 31.3 UUG 25.5-32.5 N MEAN CELL HGB CONCETRATION (test code = MCHC) 29.8 gm/dL 29.0-35. 5 N RED CELL DISTRIBUTION WIDTH (test code = RDW) 14.8 % 11.5-15. 0 N RED CELL DISTRIBUTION WIDTH SD (test code = RDW-SD) 57.7 fL 34 .8-50.2 H PLATELET COUNT (test code = PLT) 166 K/mm3 150-400 N MEAN PLATELET VOLUME (test code = MPV) 9.9 fl 7.4-10.4 N NEUTROPHIL % (test code = NT%) 68.8 % 49.0-76.0 N IMMATURE GRANULOCYTE % (test code = IG%) 5.1 % 0.0-0.4 H LYMPHOCYTE % (test code = LY%) 14.0 % 23.0-38.0 L MONOCYTE % (test code = MO%) 7.1 % 1.0-10.0 N EOSINOPHIL % (test code = EO%) 4.5 % 1.0-5.0 N BASOPHIL % (test code = BA%) 0.5 % 0.0-1.0 N NEUTROPHIL # (test code = NT#) 5.2 K/mm3 2.4-6.3 N IMMATURE GRANULOCYTE # (test code = IG#) 0.39 x10 3/uL 0.00-0.07 H LYMPHOCYTE # (test code = LY#) 1.1 K/mm3 1.2-4.0 L MONOCYTE # (test code = MO#) 0.5 K/mm3 0.0-0.6 N EOSINOPHIL # (test code = EO#) 0.3 K/MM3 0.0-0.7 N BASOPHIL # (test code = BA#) 0.0 K/mm3 0.0-0.2 N [id number] 20:57:00* Test Item Value Reference Range Interpretation Comments GLUBED (test code = GLUBED) 125 mg/dL 70-110 H [id number] 16:18:00* Test Item Value Reference Range Interpretation Comments GLUBED (test code = GLUBED) 126 mg/dL 70-110 H [id number] 12:28:00* Test Item Value Reference Range Interpretation Comments GLUBED (test code = GLUBED) 105 mg/dL 70-110 N BASIC METABOLIC [id number] 06:56:00* Test Item Value Reference Range Interpretation Comments SODIUM (test code = NA) 145 mmol/l 134.0-147.0 N POTASSIUM (test code = K) 3.7 mmol/L 3.6-5.2 N CHLORIDE (test code = CL) 105 mmol/l 98.0-107.0 N CARBON DIOXIDE (test code = CO2) 27.4 mmol/l 21.0-33.0 N ANION GAP (test code = GAP) 16.3 0-20 N GLUCOSE (test code = GLU) 88 mg/dl 70.0-110.0 N BLOOD UREA NITROGEN (test code = BUN) 16 mg/dl 7.0-18.0 N CREATININE (test code = CREAT) 4.37 mg/dL 0.60-1.30 HH GFR NON BLACK (test code = GFRNONBLACK) 11 mL/min 90-95 L GFR BLACK (test code = GFRBLACK) 13 mL/min 109-115 L CALCIUM (test code = CA) 8.7 mg/dl 8.0-10.5 N CBC W/AUTO [id number] 06:17:00* Test Item Value Reference Range Interpretation Comments WHITE BLOOD CELL (test code = WBC) 7.5 K/mm3 4.5-11.0 N RED BLOOD CELL (test code = RBC) 3.16 M/mm3 3.80-5.20 L HEMOGLOBIN (test code = HGB) 10.0 gm/dL 12.0-16.0 L HEMATOCRIT (test code = HCT) 32.2 % 36.0-48.0 L MEAN CELL VOLUME (test code = MCV) 101.9 UM3 82.0-99.0 H MEAN CELL HGB (test code = MCH) 31.6 UUG 25.5-32.5 N MEAN CELL HGB CONCETRATION (test code = MCHC) 31.1 gm/dL 29.0-35. 5 N RED CELL DISTRIBUTION WIDTH (test code = RDW) 14.7 % 11.5-15. 0 N RED CELL DISTRIBUTION WIDTH SD (test code = RDW-SD) 55.2 fL 34 .8-50.2 H PLATELET COUNT (test code = PLT) 200 K/mm3 150-400 N MEAN PLATELET VOLUME (test code = MPV) 9.4 fl 7.4-10.4 N NEUTROPHIL % (test code = NT%) 62.5 % 49.0-76.0 N IMMATURE GRANULOCYTE % (test code = IG%) 6.1 % 0.0-0.4 H LYMPHOCYTE % (test code = LY%) 17.7 % 23.0-38.0 L MONOCYTE % (test code = MO%) 9.2 % 1.0-10.0 N EOSINOPHIL % (test code = EO%) 4.1 % 1.0-5.0 N BASOPHIL % (test code = BA%) 0.4 % 0.0-1.0 N NEUTROPHIL # (test code = NT#) 4.7 K/mm3 2.4-6.3 N IMMATURE GRANULOCYTE # (test code = IG#) 0.46 x10 3/uL 0.00-0.07 H LYMPHOCYTE # (test code = LY#) 1.3 K/mm3 1.2-4.0 N MONOCYTE # (test code = MO#) 0.7 K/mm3 0.0-0.6 H EOSINOPHIL # (test code = EO#) 0.3 K/MM3 0.0-0.7 N BASOPHIL # (test code = BA#) 0.0 K/mm3 0.0-0.2 N ACUTE HEPATITIS [id number] 17:00:00* Test Item Value Reference Range Interpretation Comments AB HEPATITIS A IGM (test code = HAVMAB) NON REACTIVE INDEX NON REAC T. Testing done at [facility] [address] [place] [address] AB HEPATITIS B SURFACE (test code = HBSAB) 12.8 mIU/mL Immunity>9. 9 Status of Immunity Anti-HBs Level Inconsistent with Immunity 0.0 - 9.9Consistent with Immunity >9.9TEST PERFORMED AT [facility] [address] AG HEPATITIS B SURFACE (test code = HBSAG) NON REACTIVE INDEX NonRe active Testing done at [facility] [address] [place] [address] AB HEPATITIS B CORE IGM (test code = HBCMAB) NON REACTIVE INDEX NON REACT. Testing done at [facility] [address] [place] [address] AB HEPATITIS C (test code = HCVAB) NON REACTIVE INDEX NON REACT. Testing done at [facility] [address] [place] [address] Specimen comments: at start of hemodialysisAB HEPATITIS B [id number] 17:00:00* Test Item Value Reference Range Interpretation Comments AB HEPATITIS B CORE (test code = HBCAB) Negative Negative Performed At: [facility] [address] [id number] Kenny Power MD Ph:[phone] Specimen comments: at start of [id number] 16:43:00* Test Item Value Reference Range Interpretation Comments GLUBED (test code = GLUBED) 192 mg/dL 70-110 H [id number] 12:34:00* Test Item Value Reference Range Interpretation Comments GLUBED (test code = GLUBED) 146 mg/dL 70-110 H BASIC METABOLIC [id number] 06:23:00* Test Item Value Reference Range Interpretation Comments SODIUM (test code = NA) 144 mmol/l 134.0-147.0 N POTASSIUM (test code = K) 4.7 mmol/L 3.6-5.2 N CHLORIDE (test code = CL) 103 mmol/l 98.0-107.0 N CARBON DIOXIDE (test code = CO2) 29.9 mmol/l 21.0-33.0 N ANION GAP (test code = GAP) 15.8 0-20 N GLUCOSE (test code = GLU) 57 mg/dl 70.0-110.0 L BLOOD UREA NITROGEN (test code = BUN) 35 mg/dl 7.0-18.0 H CREATININE (test code = CREAT) 6.42 mg/dL 0.60-1.30 HH GFR NON BLACK (test code = GFRNONBLACK) 7 mL/min 90-95 L GFR BLACK (test code = GFRBLACK) 9 mL/min 109-115 L CALCIUM (test code = CA) 8.5 mg/dl 8.0-10.5 N CBC W/AUTO [id number] 06:03:00* Test Item Value Reference Range Interpretation Comments WHITE BLOOD CELL (test code = WBC) 7.3 K/mm3 4.5-11.0 N RED BLOOD CELL (test code = RBC) 3.28 M/mm3 3.80-5.20 L HEMOGLOBIN (test code = HGB) 10.1 gm/dL 12.0-16.0 L HEMATOCRIT (test code = HCT) 34.1 % 36.0-48.0 L MEAN CELL VOLUME (test code = MCV) 104.0 UM3 82.0-99.0 H MEAN CELL HGB (test code = MCH) 30.8 UUG 25.5-32.5 N MEAN CELL HGB CONCETRATION (test code = MCHC) 29.6 gm/dL 29.0-35. 5 N RED CELL DISTRIBUTION WIDTH (test code = RDW) 14.6 % 11.5-15. 0 N RED CELL DISTRIBUTION WIDTH SD (test code = RDW-SD) 55.5 fL 34 .8-50.2 H PLATELET COUNT (test code = PLT) 182 K/mm3 150-400 N MEAN PLATELET VOLUME (test code = MPV) 9.5 fl 7.4-10.4 N NEUTROPHIL % (test code = NT%) 60.6 % 49.0-76.0 N IMMATURE GRANULOCYTE % (test code = IG%) 6.3 % 0.0-0.4 H LYMPHOCYTE % (test code = LY%) 18.7 % 23.0-38.0 L MONOCYTE % (test code = MO%) 10.2 % 1.0-10.0 H EOSINOPHIL % (test code = EO%) 3.8 % 1.0-5.0 N BASOPHIL % (test code = BA%) 0.4 % 0.0-1.0 N NEUTROPHIL # (test code = NT#) 4.4 K/mm3 2.4-6.3 N IMMATURE GRANULOCYTE # (test code = IG#) 0.46 x10 3/uL 0.00-0.07 H LYMPHOCYTE # (test code = LY#) 1.4 K/mm3 1.2-4.0 N MONOCYTE # (test code = MO#) 0.8 K/mm3 0.0-0.6 H EOSINOPHIL # (test code = EO#) 0.3 K/MM3 0.0-0.7 N BASOPHIL # (test code = BA#) 0.0 K/mm3 0.0-0.2 N [id number] 16:28:00* Test Item Value Reference Range Interpretation Comments GLUBED (test code = GLUBED) 85 mg/dL 70-110 N [id number] 13:07:00* Test Item Value Reference Range Interpretation Comments GLUBED (test code = GLUBED) 84 mg/dL 70-110 N - CT HEAD/BRAIN W/O [id number] 12:18:00 FAX: Guanakito Jennings [phone] [place]: St: ADM FAX: Bertha Escamilla MD [phone] Name: TAI GRANT [facility] : 1960 Age/S: 58/F [address] [facility] [place] [facility] Unit: [id number] Loc: E.414 [place], [place] Phys: [place] [id number] Acct: [id number] Dis Date: Status: ADM IN PHONE #: [phone] Exam Date: 01/17/2019 1134 FAX #: [phone] Reason: Headcahe EXAMS: CPT CODE: [id number] CT HEAD/BRAIN W/O CONT 18367 CT HEAD WITHOUT CONTRAST. HISTORY: Headache COMPARISON: CT head 02/08/16. TECHNIQUE: Axial CT images of the head were obtained with coronal and/or sagittal reformatted views. Automated exposure control, iterative reconstruction technique, and/or ad justment of mA and/or kV according to patient's size was utilized for radi ation dose reduction. IV CONTRAST: None. Location: U19. FINDINGS: Minimal amount of periventricular and deep whi te matter hypodensities are seen, these are most commonly associated with chronic, microvascular ischemic changes. Mild generalized atrophy is note d. Atherosclerotic calcifications affect the carotid siphons. No other intracranial abnormalities such as hemorrhage, mass, mass effe ct, hydrocephalus, midline shift, extra-axial fluid collection or secondar y signs of an acute infarct are noted. The calvarium and skull bas e are intact. The paranasal sinus and mastoid air cells are clear. IMPRESSION: No evidence of acute intracranial abnorma lity. at 1218 Reported and signed by: Garrick Blount M.D. PAGE 1 Signed Report (CONTINUED) FAX: Guanakito Jennings [phone] [place]: St: [facility] FAX: Bertha Escamilla MD [phone] Name: TAI GRANT gisela : 1960 Age/S: 58/F [address] [facility] Unit: [id number] Loc: [address] Phys: [place] [address] Acct: [id number] Dis Date: Status: ADM IN PHONE #: [phone] Exam Date: 01/17/2019 1134 FAX #: [phone] Reason: Headcahe EXAMS: CPT CODE: [id number] CT HEAD/BRAIN W/O CONT 79603 < Continued> CC: Guanakito Ortez MD; Bertha Martin MD Technologist: LYDIA HARDY; KASEY RODRIGUEZ Trnscrd Dt/Tm: 01/17/2019 (1218) [id number] Orig Print D/T: S: 01/17/2019 (1221 PAGE 2 Signed Report THYROID STIMULATING [id number] 11:15:00* Test Item Value Reference Range Interpretation Comments THYROID STIMULATING HORMONE (test code = TSH) 3.16 IU/ML 0.47-5.0 1 N Result is in International Units/milliliter [id number] 11:12:00* Test Item Value Reference Range Interpretation Comments HGBA1C% (test code = HGBA1C%) 5.2 %A1C 4.8-6.0 N ESTIMATED AVERAGE GLUCOSE (test code = EAG) 103 MG/DL [id number] 08:47:00* Test Item Value Reference Range Interpretation Comments GLUBED (test code = GLUBED) 111 mg/dL 70-110 H COMPREHENSIVE METABOLIC [id number] 07:31:00* Test Item Value Reference Range Interpretation Comments SODIUM (test code = NA) 144 mmol/l 134.0-147.0 N POTASSIUM (test code = K) 4.1 mmol/L 3.6-5.2 N CHLORIDE (test code = CL) 102 mmol/l 98.0-107.0 N CARBON DIOXIDE (test code = CO2) 29.6 mmol/l 21.0-33.0 N ANION GAP (test code = GAP) 16.5 0-20 N GLUCOSE (test code = GLU) 163 mg/dl 70.0-110.0 H BLOOD UREA NITROGEN (test code = BUN) 23 mg/dl 7.0-18.0 H CREATININE (test code = CREAT) 5.26 mg/dL 0.60-1.30 HH GFR NON BLACK (test code = GFRNONBLACK) 9 mL/min 90-95 L GFR BLACK (test code = GFRBLACK) 11 mL/min 109-115 L TOTAL PROTEIN (test code = PROT) 7.3 gm/dL 6.4-8.2 N ALBUMIN (test code = ALB) 2.8 gm/dl 3.2-4.7 L CALCIUM (test code = CA) 8.8 mg/dl 8.0-10.5 N BILIRUBIN TOTAL (test code = BILT) 0.3 mg/dl 0.0-1.0 N SGOT/AST (test code = AST) 20 Units/L 15.0-37.0 N SGPT/ALT (test code = ALT) 15 Units/L 12.0-78.0 N ALKALINE PHOSPHATASE TOTAL (test code = ALKP) 135 Units/L 50.0-136 .0 N Comments to [employer]: Patient is currently in the ED waiting on a bedLIPID PROFILE (CORONARY RISK)2019-01-17 07:31:00* Test Item Value Reference Range Interpretation Comments TRIGLYCERIDES (test code = TRIG) 350 mg/dl 40.0-150.0 H CHOLESTEROL (test code = CHOL) 138 mg/dl 0.0-200.0 N CHOLESTEROL/HDL RATIO (test code = CHOLHDL) 3.9 RATIO HDL CHOLESTEROL (test code = HDL) 35 mg/dl 30.0-60.0 N LIPOPROTEIN LDL (test code = LDL) 59 mg/dl 70-130 L Comments to [employer]: Patient is currently in the ED waiting on a [id number] 07:31:00* Test Item Value Reference Range Interpretation Comments MAGNESIUM (test code = MAG) 1.8 mg/dl 1.8-2.4 N Comments to [employer]: Patient is currently in the ED waiting on a bedCBC W/AUTO [id number] 07:03:00* Test Item Value Reference Range Interpretation Comments WHITE BLOOD CELL (test code = WBC) 7.1 K/mm3 4.5-11.0 N RED BLOOD CELL (test code = RBC) 3.44 M/mm3 3.80-5.20 L HEMOGLOBIN (test code = HGB) 10.9 gm/dL 12.0-16.0 L HEMATOCRIT (test code = HCT) 34.7 % 36.0-48.0 L MEAN CELL VOLUME (test code = MCV) 100.9 UM3 82.0-99.0 H MEAN CELL HGB (test code = MCH) 31.7 UUG 25.5-32.5 N MEAN CELL HGB CONCETRATION (test code = MCHC) 31.4 gm/dL 29.0-35. 5 N RED CELL DISTRIBUTION WIDTH (test code = RDW) 14.4 % 11.5-15. 0 N RED CELL DISTRIBUTION WIDTH SD (test code = RDW-SD) 52.3 fL 34 .8-50.2 H PLATELET COUNT (test code = PLT) 189 K/mm3 150-400 N MEAN PLATELET VOLUME (test code = MPV) 9.5 fl 7.4-10.4 N NEUTROPHIL % (test code = NT%) 68.9 % 49.0-76.0 N IMMATURE GRANULOCYTE % (test code = IG%) 6.7 % 0.0-0.4 H LYMPHOCYTE % (test code = LY%) 12.9 % 23.0-38.0 L MONOCYTE % (test code = MO%) 8.2 % 1.0-10.0 N EOSINOPHIL % (test code = EO%) 2.4 % 1.0-5.0 N BASOPHIL % (test code = BA%) 0.9 % 0.0-1.0 N NEUTROPHIL # (test code = NT#) 4.9 K/mm3 2.4-6.3 N IMMATURE GRANULOCYTE # (test code = IG#) 0.47 x10 3/uL 0.00-0.07 H LYMPHOCYTE # (test code = LY#) 0.9 K/mm3 1.2-4.0 L MONOCYTE # (test code = MO#) 0.6 K/mm3 0.0-0.6 N EOSINOPHIL # (test code = EO#) 0.2 K/MM3 0.0-0.7 N BASOPHIL # (test code = BA#) 0.1 K/mm3 0.0-0.2 N Comments to [employer]: Patient is currently in the ED waiting on a bedACUTE HEPATITIS [id number] 04:22:00* Test Item Value Reference Range Interpretation Comments AB HEPATITIS A IGM (test code = HAVMAB) NON REACTIVE INDEX NON REAC T. Testing done at [facility] [address] [place] [address] AB HEPATITIS B SURFACE (test code = HBSAB) mIU/mL Immune >9.9 AG HEPATITIS B SURFACE (test code = HBSAG) NON REACTIVE INDEX NonRe active Testing done at [facility] [address] [place] [address]. [place] [address] AB HEPATITIS B CORE IGM (test code = HBCMAB) NON REACTIVE INDEX NON REACT. Testing done at [facility] [address] [place] [address]. [place] [address] AB HEPATITIS C (test code = HCVAB) NON REACTIVE INDEX NON REACT. Testing done at [facility] [address] [place] [address]. [place] [address] Specimen comments: at start of hemodialysisAB HEPATITIS B [id number] 04:22:00* Test Item Value Reference Range Interpretation Comments AB HEPATITIS B CORE (test code = HBCAB) NON REACT. Specimen comments: at start of hemodialysisAB HEPATITIS A [id number] 04:10:00 * Test Item Value Reference Range Interpretation Comments AB HEPATITIS A IGM (test code = HAVMAB) NON REACTIVE INDEX NON REAC T. Specimen comments: at start of hemodialysisAG HEPATITIS B [id number] 04:10:00* Test Item Value Reference Range Interpretation Comments AG HEPATITIS B SURFACE (test code = HBSAG) NON REACTIVE INDEX NonRe active Specimen comments: at start of hemodialysisAB HEPATITIS B CORE [id number] 04:10:00* Test Item Value Reference Range Interpretation Comments AB HEPATITIS B CORE IGM (test code = HBCMAB) NON REACTIVE INDEX NON REACT. Specimen comments: at start of hemodialysisAB HEPATITIS [id number] 04:10:00* Test Item Value Reference Range Interpretation Comments AB HEPATITIS C (test code = HCVAB) NON REACTIVE INDEX NON REACT. Specimen comments: at start of hemodialysisACUTE HEPATITIS [id number] 04:00:00* Test Item Value Reference Range Interpretation Comments AB HEPATITIS A IGM (test code = HAVMAB) INDEX NONREACTIVE AB HEPATITIS B SURFACE (test code = HBSAB) mIU/mL Immune >9.9 AG HEPATITIS B SURFACE (test code = HBSAG) NON REACTIVE INDEX NonRe active Testing done at [facility] [address] [place] [address]. [place] [address] AB HEPATITIS B CORE IGM (test code = HBCMAB) INDEX NONREACTI VE AB HEPATITIS C (test code = HCVAB) NON REACTIVE INDEX NON REACT. Testing done at [facility] [address] [place] [address]. [place] [address] Specimen comments: at start of hemodialysisAB HEPATITIS B [id number] 04:00:00* Test Item Value Reference Range Interpretation Comments AB HEPATITIS B CORE (test code = HBCAB) NON REACT. Specimen comments: at start of hemodialysisAB HEPATITIS A [id number] 03:58:00 * Test Item Value Reference Range Interpretation Comments AB HEPATITIS A IGM (test code = HAVMAB) INDEX NON REACT. Specimen comments: at start of hemodialysisAG HEPATITIS B [id number] 03:58:00* Test Item Value Reference Range Interpretation Comments AG HEPATITIS B SURFACE (test code = HBSAG) NON REACTIVE INDEX NonRe active Specimen comments: at start of hemodialysisAB HEPATITIS B CORE [id number] 03:58:00* Test Item Value Reference Range Interpretation Comments AB HEPATITIS B CORE IGM (test code = HBCMAB) INDEX NON REACT . Specimen comments: at start of hemodialysisAB HEPATITIS [id number] 03:58:00* Test Item Value Reference Range Interpretation Comments AB HEPATITIS C (test code = HCVAB) NON REACTIVE INDEX NON REACT. Specimen comments: at start of hemodialysisACUTE HEPATITIS [id number] 03:37:00* Test Item Value Reference Range Interpretation Comments AB HEPATITIS A IGM (test code = HAVMAB) INDEX NONREACTIVE AB HEPATITIS B SURFACE (test code = HBSAB) mIU/mL Immune >9.9 AG HEPATITIS B SURFACE (test code = HBSAG) NON REACTIVE INDEX NonRe active Testing done at [facility] [address] [place] [address]. [place], [place] [address] AB HEPATITIS B CORE IGM (test code = HBCMAB) INDEX NONREACTI VE AB HEPATITIS C (test code = HCVAB) INDEX NONREACTIVE Specimen comments: at start of hemodialysisAB HEPATITIS B [id number] 03:37:00* Test Item Value Reference Range Interpretation Comments AB HEPATITIS B CORE (test code = HBCAB) NON REACT. Specimen comments: at start of hemodialysisAB HEPATITIS A [id number] 03:33:00 * Test Item Value Reference Range Interpretation Comments AB HEPATITIS A IGM (test code = HAVMAB) INDEX NON REACT. Specimen comments: at start of hemodialysisAG HEPATITIS B [id number] 03:33:00* Test Item Value Reference Range Interpretation Comments AG HEPATITIS B SURFACE (test code = HBSAG) NON REACTIVE INDEX NonRe active Specimen comments: at start of hemodialysisAB HEPATITIS B CORE [id number] 03:33:00* Test Item Value Reference Range Interpretation Comments AB HEPATITIS B CORE IGM (test code = HBCMAB) INDEX NON REACT . Specimen comments: at start of hemodialysisAB HEPATITIS [id number] 03:33:00* Test Item Value Reference Range Interpretation Comments AB HEPATITIS C (test code = HCVAB) INDEX NON REACT. Specimen comments: at start of hemodialysisCARDIAC ENZYMES [id number] 21:05:00* Test Item Value Reference Range Interpretation Comments CREATINE KINASE (CK) (test code = CK) 30 Units/L 26-192 N TROPONIN-I (test code = TROPI) <0.02 NG/ML 0.00-0.06 N REFERENCE RANGE TROPONIN I HEALTHY INDIVIDUALS: <0.06 ng/mL R/O ISCHEMIA: 0.07 - 0.60 ng/mL CUT-OFF RANGE FOR AMI: 0.60 - 1.5 ng/mL : Specimen comments: Please see the initial specimen in the lab as the first draw on this series Comments to [employer]: Please draw the 2nd specimen q4hrs after the first and the 3rd 8hrs after the first.Specime n comments: drawn Q4hrs then [id number] to [employer]: Patient is currently in the ED waiting on a bedCARDIAC ENZYMES PROFILE 2019-01-16 16:42:00* Test Item Value Reference Range Interpretation Comments CREATINE KINASE (CK) (test code = CK) 25 Units/L 26-192 L TROPONIN-I (test code = TROPI) <0.02 NG/ML 0.00-0.06 N REFERENCE RANGE TROPONIN I HEALTHY INDIVIDUALS: <0.06 ng/mL R/O ISCHEMIA: 0.07 - 0.60 ng/mL CUT-OFF RANGE FOR AMI: 0.60 - 1.5 ng/mL : Specimen comments: Please see the initial specimen in the lab as the first draw on this series Comments to [employer]: Please draw the 2nd specimen q4hrs after the first and the 3rd 8hrs after the first.Specime n comments: drawn Q4hrs then [id number] to [employer]: Patient is currently in the ED waiting on a [id number] 16:33:00* Test Item Value Reference Range Interpretation Comments GLUBED (test code = GLUBED) 109 mg/dL 70-110 N CBC W/MANUAL [id number] 15:07:00* Test Item Value Reference Range Interpretation Comments WHITE BLOOD CELL (test code = WBC) 6.9 K/mm3 4.5-11.0 N RED BLOOD CELL (test code = RBC) 3.17 M/mm3 3.80-5.20 L HEMOGLOBIN (test code = HGB) 9.9 gm/dL 12.0-16.0 L HEMATOCRIT (test code = HCT) 32.0 % 36.0-48.0 L MEAN CELL VOLUME (test code = MCV) 100.9 UM3 82.0-99.0 H MEAN CELL HGB (test code = MCH) 31.2 UUG 25.5-32.5 N MEAN CELL HGB CONCETRATION (test code = MCHC) 30.9 gm/dL 29.0-35. 5 N RED CELL DISTRIBUTION WIDTH (test code = RDW) 14.4 % 11.5-15. 0 N RED CELL DISTRIBUTION WIDTH SD (test code = RDW-SD) 52.8 fL 34 .8-50.2 H PLATELET COUNT (test code = PLT) 150 K/mm3 150-400 N MEAN PLATELET VOLUME (test code = MPV) 9.6 fl 7.4-10.4 N NEUTROPHIL % (test code = NT%) 74.3 % 49.0-76.0 N IMMATURE GRANULOCYTE % (test code = IG%) 5.7 % 0.0-0.4 H LYMPHOCYTE % (test code = LY%) 9.8 % 23.0-38.0 L MONOCYTE % (test code = MO%) 8.6 % 1.0-10.0 N EOSINOPHIL % (test code = EO%) 1.0 % 1.0-5.0 N BASOPHIL % (test code = BA%) 0.6 % 0.0-1.0 N NEUTROPHIL # (test code = NT#) 5.1 K/mm3 2.4-6.3 N IMMATURE GRANULOCYTE # (test code = IG#) 0.39 x10 3/uL 0.00-0.07 H LYMPHOCYTE # (test code = LY#) 0.7 K/mm3 1.2-4.0 L MONOCYTE # (test code = MO#) 0.6 K/mm3 0.0-0.6 N EOSINOPHIL # (test code = EO#) 0.1 K/MM3 0.0-0.7 N BASOPHIL # (test code = BA#) 0.0 K/mm3 0.0-0.2 N TOTAL CELLS COUNTED (test code = TCC) 100 #CELLS SEGMENTED NEUTROPHILS (test code = SEG) 72 % 50.0-70.0 H BAND NEUTROPHIL (test code = BAND) 5 % 1.0-4.0 H LYMPHOCYTE (test code = LYMPH) 10 % 20-40 L ATYPICAL LYMPH (test code = ALYMPH) 1 1.0-4.0 N MONOCYTE (test code = MON) 9 % 0-10 N EOSINOPHIL (test code = EOS) 1 % 1.0-5.0 N METAMYELOCYTE (test code = META) 1 % 0.0-1.0 N MYELOCYTE (test code = MYELO) 1 % 0.0-0.0 H ANISOCYTOSIS (test code = ANISO) 1+ PLATELET ESTIMATE (test code = PLTEST) ADQ PLATELET MORPHOLOGY (test code = PLTMORPH) NORMAL CBC W/MANUAL [id number] 14:56:00* Test Item Value Reference Range Interpretation Comments WHITE BLOOD CELL (test code = WBC) 6.9 K/mm3 4.5-11.0 N RED BLOOD CELL (test code = RBC) 3.17 M/mm3 3.80-5.20 L HEMOGLOBIN (test code = HGB) 9.9 gm/dL 12.0-16.0 L HEMATOCRIT (test code = HCT) 32.0 % 36.0-48.0 L MEAN CELL VOLUME (test code = MCV) 100.9 UM3 82.0-99.0 H MEAN CELL HGB (test code = MCH) 31.2 UUG 25.5-32.5 N MEAN CELL HGB CONCETRATION (test code = MCHC) 30.9 gm/dL 29.0-35. 5 N RED CELL DISTRIBUTION WIDTH (test code = RDW) 14.4 % 11.5-15. 0 N RED CELL DISTRIBUTION WIDTH SD (test code = RDW-SD) 52.8 fL 34 .8-50.2 H PLATELET COUNT (test code = PLT) 150 K/mm3 150-400 N MEAN PLATELET VOLUME (test code = MPV) 9.6 fl 7.4-10.4 N NEUTROPHIL % (test code = NT%) 74.3 % 49.0-76.0 N IMMATURE GRANULOCYTE % (test code = IG%) 5.7 % 0.0-0.4 H LYMPHOCYTE % (test code = LY%) 9.8 % 23.0-38.0 L MONOCYTE % (test code = MO%) 8.6 % 1.0-10.0 N EOSINOPHIL % (test code = EO%) 1.0 % 1.0-5.0 N BASOPHIL % (test code = BA%) 0.6 % 0.0-1.0 N NEUTROPHIL # (test code = NT#) 5.1 K/mm3 2.4-6.3 N IMMATURE GRANULOCYTE # (test code = IG#) 0.39 x10 3/uL 0.00-0.07 H LYMPHOCYTE # (test code = LY#) 0.7 K/mm3 1.2-4.0 L MONOCYTE # (test code = MO#) 0.6 K/mm3 0.0-0.6 N EOSINOPHIL # (test code = EO#) 0.1 K/MM3 0.0-0.7 N BASOPHIL # (test code = BA#) 0.0 K/mm3 0.0-0.2 N SEGMENTED NEUTROPHILS (test code = SEG) % 50.0-70.0 LYMPHOCYTE (test code = LYMPH) % 20-40 CBC W/MANUAL [id number] 14:56:00* Test Item Value Reference Range Interpretation Comments WHITE BLOOD CELL (test code = WBC) 6.9 K/mm3 4.5-11.0 N RED BLOOD CELL (test code = RBC) 3.17 M/mm3 3.80-5.20 L HEMOGLOBIN (test code = HGB) 9.9 gm/dL 12.0-16.0 L HEMATOCRIT (test code = HCT) 32.0 % 36.0-48.0 L MEAN CELL VOLUME (test code = MCV) 100.9 UM3 82.0-99.0 H MEAN CELL HGB (test code = MCH) 31.2 UUG 25.5-32.5 N MEAN CELL HGB CONCETRATION (test code = MCHC) 30.9 gm/dL 29.0-35. 5 N RED CELL DISTRIBUTION WIDTH (test code = RDW) 14.4 % 11.5-15. 0 N RED CELL DISTRIBUTION WIDTH SD (test code = RDW-SD) 52.8 fL 34 .8-50.2 H PLATELET COUNT (test code = PLT) 150 K/mm3 150-400 N MEAN PLATELET VOLUME (test code = MPV) 9.6 fl 7.4-10.4 N NEUTROPHIL % (test code = NT%) 74.3 % 49.0-76.0 N IMMATURE GRANULOCYTE % (test code = IG%) 5.7 % 0.0-0.4 H LYMPHOCYTE % (test code = LY%) 9.8 % 23.0-38.0 L MONOCYTE % (test code = MO%) 8.6 % 1.0-10.0 N EOSINOPHIL % (test code = EO%) 1.0 % 1.0-5.0 N BASOPHIL % (test code = BA%) 0.6 % 0.0-1.0 N NEUTROPHIL # (test code = NT#) 5.1 K/mm3 2.4-6.3 N IMMATURE GRANULOCYTE # (test code = IG#) 0.39 x10 3/uL 0.00-0.07 H LYMPHOCYTE # (test code = LY#) 0.7 K/mm3 1.2-4.0 L MONOCYTE # (test code = MO#) 0.6 K/mm3 0.0-0.6 N EOSINOPHIL # (test code = EO#) 0.1 K/MM3 0.0-0.7 N BASOPHIL # (test code = BA#) 0.0 K/mm3 0.0-0.2 N SEGMENTED NEUTROPHILS (test code = SEG) % 50.0-70.0 LYMPHOCYTE (test code = LYMPH) % 20-40 BASIC METABOLIC [id number] 12:29:00* Test Item Value Reference Range Interpretation Comments SODIUM (test code = NA) 143 mmol/l 134.0-147.0 N POTASSIUM (test code = K) 5.6 mmol/L 3.6-5.2 H IS SAMPLE HEMOLYSED? NO CHLORIDE (test code = CL) 103 mmol/l 98.0-107.0 N CARBON DIOXIDE (test code = CO2) 29.0 mmol/l 21.0-33.0 N ANION GAP (test code = GAP) 16.6 0-20 N GLUCOSE (test code = GLU) 107 mg/dl 70.0-110.0 N BLOOD UREA NITROGEN (test code = BUN) 38 mg/dl 7.0-18.0 H CREATININE (test code = CREAT) 7.25 mg/dL 0.60-1.30 HH GFR NON BLACK (test code = GFRNONBLACK) 6 mL/min 90-95 L GFR BLACK (test code = GFRBLACK) 7 mL/min 109-115 L CALCIUM (test code = CA) 8.9 mg/dl 8.0-10.5 N B-TYPE NATRIURETIC [id number] 12:29:00* Test Item Value Reference Range Interpretation Comments B-TYPE NATRIURETIC PEPTIDE (test code = BNP) 1040 PG/ML 5-100 H CARDIAC ENZYMES [id number] 12:29:00* Test Item Value Reference Range Interpretation Comments CREATINE KINASE (CK) (test code = CK) 27 Units/L 26-192 N TROPONIN-I (test code = TROPI) <0.02 NG/ML 0.00-0.06 N REFERENCE RANGE TROPONIN I HEALTHY INDIVIDUALS: <0.06 ng/mL R/O ISCHEMIA: 0.07 - 0.60 ng/mL CUT-OFF RANGE FOR AMI: 0.60 - 1.5 ng/mL BASIC METABOLIC [id number] 12:19:00* Test Item Value Reference Range Interpretation Comments SODIUM (test code = NA) 143 mmol/l 134.0-147.0 N POTASSIUM (test code = K) 5.6 mmol/L 3.6-5.2 H IS SAMPLE HEMOLYSED? NO CHLORIDE (test code = CL) 103 mmol/l 98.0-107.0 N CARBON DIOXIDE (test code = CO2) 29.0 mmol/l 21.0-33.0 N ANION GAP (test code = GAP) 16.6 0-20 N GLUCOSE (test code = GLU) 107 mg/dl 70.0-110.0 N BLOOD UREA NITROGEN (test code = BUN) 38 mg/dl 7.0-18.0 H CREATININE (test code = CREAT) 7.25 mg/dL 0.60-1.30 HH GFR NON BLACK (test code = GFRNONBLACK) 6 mL/min 90-95 L GFR BLACK (test code = GFRBLACK) 7 mL/min 109-115 L CALCIUM (test code = CA) 8.9 mg/dl 8.0-10.5 N B-TYPE NATRIURETIC [id number] 12:19:00* Test Item Value Reference Range Interpretation Comments B-TYPE NATRIURETIC PEPTIDE (test code = BNP) PG/ML 5-100 CARDIAC ENZYMES [id number] 12:19:00* Test Item Value Reference Range Interpretation Comments CREATINE KINASE (CK) (test code = CK) 27 Units/L 26-192 N TROPONIN-I (test code = TROPI) <0.02 NG/ML 0.00-0.06 N REFERENCE RANGE TROPONIN I HEALTHY INDIVIDUALS: <0.06 ng/mL R/O ISCHEMIA: 0.07 - 0.60 ng/mL CUT-OFF RANGE FOR AMI: 0.60 - 1.5 ng/mL CBC W/AUTO [id number] 12:02:00* Test Item Value Reference Range Interpretation Comments WHITE BLOOD CELL (test code = WBC) 6.9 K/mm3 4.5-11.0 N RED BLOOD CELL (test code = RBC) 3.17 M/mm3 3.80-5.20 L HEMOGLOBIN (test code = HGB) 9.9 gm/dL 12.0-16.0 L HEMATOCRIT (test code = HCT) 32.0 % 36.0-48.0 L MEAN CELL VOLUME (test code = MCV) 100.9 UM3 82.0-99.0 H MEAN CELL HGB (test code = MCH) 31.2 UUG 25.5-32.5 N MEAN CELL HGB CONCETRATION (test code = MCHC) 30.9 gm/dL 29.0-35. 5 N RED CELL DISTRIBUTION WIDTH (test code = RDW) 14.4 % 11.5-15. 0 N RED CELL DISTRIBUTION WIDTH SD (test code = RDW-SD) 52.8 fL 34 .8-50.2 H PLATELET COUNT (test code = PLT) 150 K/mm3 150-400 N MEAN PLATELET VOLUME (test code = MPV) 9.6 fl 7.4-10.4 N NEUTROPHIL % (test code = NT%) 74.3 % 49.0-76.0 N IMMATURE GRANULOCYTE % (test code = IG%) 5.7 % 0.0-0.4 H LYMPHOCYTE % (test code = LY%) 9.8 % 23.0-38.0 L MONOCYTE % (test code = MO%) 8.6 % 1.0-10.0 N EOSINOPHIL % (test code = EO%) 1.0 % 1.0-5.0 N BASOPHIL % (test code = BA%) 0.6 % 0.0-1.0 N NEUTROPHIL # (test code = NT#) 5.1 K/mm3 2.4-6.3 N IMMATURE GRANULOCYTE # (test code = IG#) 0.39 x10 3/uL 0.00-0.07 H LYMPHOCYTE # (test code = LY#) 0.7 K/mm3 1.2-4.0 L MONOCYTE # (test code = MO#) 0.6 K/mm3 0.0-0.6 N EOSINOPHIL # (test code = EO#) 0.1 K/MM3 0.0-0.7 N BASOPHIL # (test code = BA#) 0.0 K/mm3 0.0-0.2 N - XR CHEST 1 [id number] 11:37:00 [place]: St: PRE Name: TAI MANLEY [facility] : [birth year] Age/S: 58/F [address] [facility] #: [id number] Loc: [place], [place] Phys: [place] [address] Acct: [id number] Dis Date: Status: PRE ER PHONE #: [phone] Exam Date: 01/16/2019 1110 FAX #: [phone] Reason: SOB EXAMS: CPT CODE: [id number] XR CHEST 1 V 97562 Examination: Chest 1 view Location code: S17 Comparison: Chest October 04, 2018 Discussion: Clinical history is remarkable for shortness of breath, generalized weakness. Cardiac silhouette is normal in size. At herosclerotic change is present. Minor congestion is identified, patchy in filtrate is present in either lung base. Impression: Mild congestion with patchy bilateral basilar atelectatic change vers us infiltrate. at 1137 Reported and signed by: Jace Rogers M.D. CC: Technologist: ABDULLAHI GARRETT [place] Date/Time/By: 9 (9137) : By: [email or web address] PAGE 1 Signed Report [place]: St: PRE Name: TAI GRANT [facility] : 1960 Age/S: 58/F [address] [facility] Unit #: [id number] Loc: [place], [place]: [place] [address] A cct: [id number] Dis Date: Status: PRE ER PHONE #: [phone] Exam Date: 01/16/2019 1110 FAX #: [phone] Reason: SOB EXAMS: CPT CODE: [id number] XR CHEST 1 V 04937 < Continued> Orig Print D/T: S: 01/16/2019 (4825) PAGE 2 Signed Report MRI SPINE LUMBAR [id number] 10:26:00 [place] [address] Patient Name: TAI GRANT MR #: [id number] : 1960 Age/Sex: 58/F Req #: [id number] Adm Physician: Ordered by: BRITTNEY MARTE MD Report #: [id number] Location: MRI Room/Bed: Procedure: [id number] MRI/MR I SPINE LUMBAR WO Exam Date: Exam Time: REPORT STATUS: Signed EXAMINATION: MRI of the lumbar spine without contrast HISTORY: Chronic low back pain radiatin g into the bilateral lower extremities COMPARISON: None. TECHNIQUE: Sagittal T1, T2, STIR; axial T2 and proton density. FINDINGS: It is assum ed that there are 5 lumbar vertebrae. Curvature/Alignment: Straightening o f the lumbar lordosis. Subtle left-sided curvature. Vertebrae: No narciso dence of recent fracture, infection, or neoplasm. Conus: Normal, termina ting at L1 Cauda equina: Unremarkable. Lower thoracic: Unremarkabl e. Paraspinal soft tissues: Atrophic kidneys with scatter T2 hyperintense foci, probable cyst, a renal ultrasound is recommended if not previously farideh luated. Degenerative changes: L1-L2: Decreased disc height and T2 signal intensity, minimal symmetric disc bulge, no canal or foraminal stenosi s. L2-L3: Decreased disc height and T2 signal intensity, mild facet art hrosis. Minimal canal and foraminal narrowing. No nerve root compression. L3-L4: Mild symmetric disc bulge. No canal or foraminal stenosis. L4-L5: Minimal asymmetric to the left disc portion facet arthrosis. No canal o r foraminal stenosis. L5-S1: Mild facet arthrosis without stenoses. IMPRESSION: Mild degenerative changes of the disc and facet joints from L1-L2 to L5-S1 without significant spinal canal or foraminal stenosis. No e vidence of nerve root compression. Signed by: Dr. Randall Haque M.D. on 10:31 AM Dictated By: RANDALL HAQUE MD 1031 Transcribed By: ROBI on 11/15/18 1031 Cory DELGADO TO: BRITTNEY MARTE MD SURGICAL [id number] 08:41:00 RUN DATE: 10/19/18 [facility] *LIVE* PAGE 1 RUN TIME: 840 Specimen Inqui ry RUN USER: INTERFACE PATIENT: TAI GRANT ACCT #: [id number] LOC: [place] U #: [id number] AGE/SX: 58/F ROOM: RE10/06/18[facility] DR: Saul Bender MD : 64 BED: DIS: STATUS: LINDA SD TLOC: SPEC #: [id number] RECD: 10/06/18 STATUS: NITO REQ #: [id number] JAZMINE: 10/06/18 [facility] DR: Saul Bender MD ENTERED: 10/19/18 SP TYPE: SURG SPEC OTHR DR: JerezJaspreet purcell MD, Manish MD Seerangan, Geetha MDORDERED: GM LEVEL 4 CODES: [id number] - STOMACH, NOS R75624 - SM ALL INTESTINE COPIES TO: Saul Bender MD [address] [place] [address] [address] [place] [address] Jaspreet Jerez MD [address] [place] [address] Eliel Dong MD [address] [place] [address] [address] [place] [address] Bertha Martin MD [address] [place] [id number] PROCEDURES: GM LEVEL 4 (Incomplete ) TISSUES: 1. SMALL INTESTINE, NOS - Small intestine, distal duodenum, bx. 2. STOMACH, NOS - Stomach, prepyloric, bx. FINAL DIAGNOSIS Small intestine, distal duodenum, bx.: Intact villous architecture, no ev idence of celiac sprue. Stomach, gastric, bx.: Hyperplastic polyp, mild ac tive inflammation, no Helicobacter organisms identified. CONTINUED ON NEXT PAGE RUN DATE: 10/19/18 [facility] *LIVE* PAGE 2 RUN TIME: 0841 Specimen Inquiry RUN USER: INTERF EMIL SPEC # : [id number] PATIENT: TAI GRANT #[id number] (Cont inued) GROSS AND MICROSCOPIC GROSS EXAMINATION: Received i n formalin labeled distal duodenum biopsy are 2 brown tissue fragments measuring up to 0.3 cm (A). Received in formalin labeled gastric biopsy are 2 brown tissue fragments measuring up to 0.4 cm (B). MICROSCOPIC EXAMINATION: Sections of the d istal duodenum reveal intact villous architecture, no evidence of celiac sprue. Sections of the gastric biopsy reveal changes of chronic, mildly active gastritis. There is a hyperplastic polypoid lesion with coiled glands having reactive epithelium. There is focal active a cute inflammation within the glands. No intestinal metaplasia is identi fied with Alcian blue-PAS staining. Helicobacter organisms are not identi fied by immunostaining. (When special stains have been reviewed, the appropriate posit sue/negative controls have been reviewed and are appropriately positive/negat sue). POST-OP DIAGNOSIS Gastric polyp PRE-OP DIAGNOSIS Nausea, vomiting REVIEWED BY: WALDEMAR Signed SIGNATURE ON FILE Orlin Alvarez DO 10/19/18 0841 END OF REPORT MRI SPINE CERVICAL [id number] 16:03:00 [facility] [address] [place] [address] Patient Name: TAI GRANT MR #: [id number] : 1960 Age/Sex: 58/F Req #: [id number] Adm Physician: Ordered by: BRITTNEY MARTE MD Report #: [id number] Location: MRI Room/Bed: Procedure: [id number] MRI/MRI SPINE CERVICAL WO Exam Date: Exam Time: REPORT STATUS: Signed EXA MINATION: MRI of the cervical spine without contrast HISTORY: Arm numbnes s, migraine headaches COMPARISON: None available TECHNIQUE: Sagittal T1, T2, STIR; axial T2, gradient echo. Image quality: Motion artifact limits evaluati on of most of the sequences. FINDINGS: Curvature: Normal lordosis. V ertebrae: No evidence of neoplasm, infection, or fracture. Foramen magnum: No mass, Chiari malformation, or basilar invagination. Spinal Cord: Normal size and signal intensity. Soft Tissues: Unremarkable. Degenerative changes: Mild disc poles from uncovertebral and facet arthrosis at C5-C6 and C6-C7 wi thout significant canal or foraminal stenosis, otherwise no significant degene rative changes and no evidence of nerve root compression. IMPRESSION: Suboptimal study due to motion. Grossly no abnormalities of the cervical spin al cord. Mild degenerative changes at C5-C6 and C6-C7 without significant st enosis. Signed by: Dr. Randall Haque M.D. on 06/23/2018 4:17 PM Dictat ed By: RANDALL HAQUE MD 16 Transcribed By: ROBI on 06/23/181616 COPY TO: BRITTNEY MARTE MD MAMMOGRAPHY DIGITAL SCR [id number] 15:51:00 [place] [address] Patient Name: TAI GRANT MR #: [id number] : 1960 Age/Sex: 58/F Req #: [id number] Adm Physician: Ordered by: BRITTNEY MARTE MD Report #: [id number] Location: MRI Room/Bed: Procedure: [id number] MG/MAMMOGRAPHY DIGITAL SCR BILAT Exam Date: 06/23/18 Exam Time: [address] ATUS: Signed #[id number] - [id number] #BILATERAL DIGITAL SCREENING MAMM OGRAM WITH CAD: 06/23/2018 CLINICAL: Routine screening. Comparison is ma de to exams dated: 04/06/2017 mammogram, 03/04/2016 mammogram and 02/21/2016 mammo gram - [facility]. There are scattered fibrogland ular elements in both breasts. Current study was also evaluated with a Compu ter Aided Detection (CAD) system. No new significant masses, calcifications, or other findings are seen in either breast. IMPRESSION: BENIGN There is no mammographic evidence of malignancy. A 1 year screening mammogram is ezekiel mmended. The patient will be notified by letter of the results. Remberto Chung M.D. ks/:06/28/2018 10:29:26 Dental Office Coordinator: Corrine DIMAS(R)(M), [facility] letter sent: Norm al Exam Mammogram BI-RADS: 2 Benign Dictated By: ANA MARÍA ONEILL MD Adriana ctronically Signed By: ANA MARÍA ONEILL MD on 06/28/18 1029 Transcribed By: JANIS MOSER on 06/28/18 1029 COPY TO: BRITTNEY MARTE MD Bedside Glucose 2018-03-21 19:26:00* Test Item Value Reference Range Interpretation Comments Bedside Glucose (test code = 68745-8) 108 70-120 Meter ID: [id number] [facility] [place] [facility] HospitalBacteria identification in wound by ffebdbx7995-01-10 10:52:00* Test Item Value Reference Range Interpretation Comments Wound Culture (test code = 6462-6) Organism: ENTEROCOCCUS FAECALIS [facility] [place] [facility] HospitalBlood Knmncza8492-65-28 06:05:00* Test Item Value Reference Range Interpretation Comments Blood Culture (test code = 60997171) NO GROWTH AFTER 48 HOURS [facility] [place] [facility] HospitalDifferential Total Cells Counted 2018-03-19 09:23:00* Test Item Value Reference Range Interpretation Comments Differential Total Cells Counted (test code = Erica tial Total Cells Counted) 100 [facility] [place] [facility] HospitalNeutrophils % (Manual)2018-03-19 09:23:00 * Test Item Value Reference Range Interpretation Comments Neutrophils % (Manual) (test code = 22813-0) 87 40-74 H [facility] [place] [facility] HospitalLymphocytes % (Manual)2018-03-19 09:23:00 * Test Item Value Reference Range Interpretation Comments Lymphocytes % (Manual) (test code = 737-7) 10 19-48 L [facility] [place] [facility] HospitalMonocytes % (Manual)2018-03-19 09:23:00* Test Item Value Reference Range Interpretation Comments Monocytes % (Manual) (test code = 744-3) 2 3.4-9.0 L [facility] [place] [facility] HospitalEosinophils % (Manual)2018-03-19 09:23:00 * Test Item Value Reference Range Interpretation Comments Eosinophils % (Manual) (test code = 714-6) 1 0-7 [facility] [place] [facility] HospitalPlatelet Eferwwib4218-64-64 09:23:00* Test Item Value Reference Range Interpretation Comments Platelet Estimate (test code = 70705-7) ADEQUATE [facility] [place] [facility] HospitalPlatelet Morphology Fugqolv0232-91-16 09:23:00* Test Item Value Reference Range Interpretation Comments Platelet Morphology Comment (test code = 42402-1) NORMAL [facility] [place] [facility] HospitalRed Cell Morphology Hmfrddp0746-37-82 09:23:00* Test Item Value Reference Range Interpretation Comments Red Cell Morphology Comment (test code = 6742-1) NORMAL [facility] Goyjg2776-18-85 06:47:00* Test Item Value Reference Range Interpretation Comments Sodium Level (test code = 2951-2) 136 136-145 [facility] [place] [facility] HospitalPotassium Atlpi1380-22-27 06:47:00* Test Item Value Reference Range Interpretation Comments Potassium Level (test code = 2823-3) 3.7 3.5-5.1 [facility] [place] [facility] HospitalChloride Rvmyx1878-33-00 06:47:00* Test Item Value Reference Range Interpretation Comments Chloride Level (test code = 2075-0) 97 98-107 L [facility] [place] [facility] HospitalCarbon Dioxide Jowle2317-07-53 06:47:00* Test Item Value Reference Range Interpretation Comments Carbon Dioxide Level (test code = 2028-9) 25 22-29 [facility] [place] [facility] HospitalAnion Acj7075-04-45 06:47:00* Test Item Value Reference Range Interpretation Comments Anion Gap (test code = 20498-9) 17.7 8-16 H [facility] [place] [facility] HospitalBlood Urea Auzjojqf0367-72-80 06:47:00* Test Item Value Reference Range Interpretation Comments Blood Urea Nitrogen (test code = 3094-0) 27 7-26 H [facility] [place] [facility] HospitalCreatinine2018-05-26 06:47:00* Test Item Value Reference Range Interpretation Comments Creatinine (test code = 2160-0) 3.54 0.57-1.11 H [facility] [place] [facility] HospitalBUN/Creatinine Elhhe4275-73-21 06:47:00* Test Item Value Reference Range Interpretation Comments BUN/Creatinine Ratio (test code = 3097-3) 8 6-25 [facility] [place] [facility] HospitalEstimat Glomerular Filtration Rate 2018-03-19 06:47:00* Test Item Value Reference Range Interpretation Comments Estimat Glomerular Filtration Rate (test code = 77407-9) 13 >60 L Ranges were taken from the National Kidney Disease Education Program and the [facility] Kidney Foundation literature.Reference ranges:60 or greater: Mvtopn91-06 ( for 3 consecutive months): Chronic kidney disease 15 or less: Kidney failureUT Health East [place] [facility] HospitalGlucose Ogcgf9699-02-04 06:47:00* Test Item Value Reference Range Interpretation Comments Glucose Level (test code = OUB7414) 101 74-118 [facility] [place] [facility] HospitalCalcium Seluu0490-21-66 06:47:00* Test Item Value Reference Range Interpretation Comments Calcium Level (test code = 04321-3) 9.2 8.4-10.2 [facility] [place] [facility] HospitalTotal Mkpefaxgn2494-48-61 06:47:00* Test Item Value Reference Range Interpretation Comments Total Bilirubin (test code = 1975-2) 0.3 0.2-1.2 [facility] [place] [facility] HospitalAspartate Amino Transf (AST/SGOT) 2018-03-19 06:47:00* Test Item Value Reference Range Interpretation Comments Aspartate Amino Transf (AST/SGOT) (test code = Aspartate Amino Transf (AST/SGOT)) 11 5-34 [facility] [place] [facility] HospitalAlanine Aminotransferase (ALT/SGPT) 2018-03-19 06:47:00* Test Item Value Reference Range Interpretation Comments Alanine Aminotransferase (ALT/SGPT) (test code = 1742-6) 7 0-55 [facility] [place] [facility] HospitalTotal Lowiftj5314-04-99 06:47:00* Test Item Value Reference Range Interpretation Comments Total Protein (test code = 2885-2) 7.2 6.5-8.1 [facility] [place] [facility] HospitalAlbumin2018-05-26 06:47:00* Test Item Value Reference Range Interpretation Comments Albumin (test code = 1751-7) 2.8 3.5-5.0 L [facility] [place] [facility] HospitalGlobulin2018-05-26 06:47:00* Test Item Value Reference Range Interpretation Comments Globulin (test code = 02598-0) 4.4 2.3-3.5 H [facility] [place] [facility] HospitalAlbumin/Globulin Cprot0553-49-16 06:47:00 * Test Item Value Reference Range Interpretation Comments Albumin/Globulin Ratio (test code = 1759-0) 0.6 0.8-2.0 L [facility] [place] [facility] HospitalAlkaline Ultlboqfuka3722-76-26 06:47:00* Test Item Value Reference Range Interpretation Comments Alkaline Phosphatase (test code = 6768-6) 160 40-150 H [facility] [place] [facility] HospitalWhite Blood Exqif2079-68-98 06:12:00* Test Item Value Reference Range Interpretation Comments White Blood Count (test code = 6690-2) 10.42 4.8-10.8 [facility] [place] [facility] HospitalRed Blood Njuyr3128-70-70 06:12:00* Test Item Value Reference Range Interpretation Comments Red Blood Count (test code = 789-8) 2.80 3.6-5.1 L [facility] [place] [facility] HospitalHemoglobin2018-05-26 06:12:00* Test Item Value Reference Range Interpretation Comments Hemoglobin (test code = 62103-0) 8.9 12.0-16.0 L [facility] [place] [facility] HospitalHematocrit2018-05-26 06:12:00* Test Item Value Reference Range Interpretation Comments Hematocrit (test code = 4544-3) 28.4 34.2-44.1 L [facility] [place] [facility] HospitalMean Corpuscular Tkmmkq0667-69-35 06:12:00* Test Item Value Reference Range Interpretation Comments Mean Corpuscular Volume (test code = 787-2) 101.4 81-99 H [facility] [place] [facility] HospitalMean Corpuscular Gdqsmsczmp4534-05-64 06:12:00* Test Item Value Reference Range Interpretation Comments Mean Corpuscular Hemoglobin (test code = 785-6) 31.8 28-32 [facility] [place] [facility] HospitalMean Corpuscular Hemoglobin Concent 2018-03-19 06:12:00* Test Item Value Reference Range Interpretation Comments Mean Corpuscular Hemoglobin Concent (test code = 786-4) 31.3 31-35 [facility] [place] [facility] HospitalRed Cell Distribution Ruvut2783-25-97 06:12:00* Test Item Value Reference Range Interpretation Comments Red Cell Distribution Width (test code = 61316-2) 14.3 11.7 -14.4 [facility] [place] [facility] HospitalPlatelet Dxhfc2001-28-27 06:12:00* Test Item Value Reference Range Interpretation Comments Platelet Count (test code = 777-3) 183 140-360 [facility] [place] [facility] HospitalNeutrophils (%) (Auto)2018-03-19 06:12:00 * Test Item Value Reference Range Interpretation Comments Neutrophils (%) (Auto) (test code = 68804-5) 78.9 38.7-80.0 [facility] [place] [facility] HospitalLymphocytes (%) (Auto)2018-03-19 06:12:00 * Test Item Value Reference Range Interpretation Comments Lymphocytes (%) (Auto) (test code = 736-9) 7.7 18.0-39.1 L [facility] [place] [facility] HospitalMonocytes (%) (Auto)2018-03-19 06:12:00* Test Item Value Reference Range Interpretation Comments Monocytes (%) (Auto) (test code = 5905-5) 9.1 4.4-11.3 [facility] [place] [facility] HospitalEosinophils (%) (Auto)2018-03-19 06:12:00 * Test Item Value Reference Range Interpretation Comments Eosinophils (%) (Auto) (test code = 713-8) 2.0 0.0-6.0 [facility] [place] [facility] HospitalBasophils (%) (Auto)2018-03-19 06:12:00* Test Item Value Reference Range Interpretation Comments Basophils (%) (Auto) (test code = 706-2) 0.2 0.0-1.0 [facility] [place] [facility] HospitalIM GRANULOCYTES %2018-03-19 06:12:00* Test Item Value Reference Range Interpretation Comments IM GRANULOCYTES % (test code = IM GRANULOCYTES %) 2.1 0.0- 1.0 H [facility] [place] [facility] HospitalNeutrophils # (Auto)2018-03-19 06:12:00* Test Item Value Reference Range Interpretation Comments Neutrophils # (Auto) (test code = 751-8) 8.2 2.1-6.9 H [facility] [place] [facility] HospitalLymphocytes # (Auto)2018-03-19 06:12:00* Test Item Value Reference Range Interpretation Comments Lymphocytes # (Auto) (test code = 39213-6) 0.8 1.0-3.2 L [facility] [place] [facility] HospitalMonocytes # (Auto)2018-03-19 06:12:00* Test Item Value Reference Range Interpretation Comments Monocytes # (Auto) (test code = 742-7) 1.0 0.2-0.8 H [facility] HospitalEosinophils # (Auto)2018-03-19 06:12:00* Test Item Value Reference Range Interpretation Comments Eosinophils # (Auto) (test code = 711-2) 0.2 0.0-0.4 [facility] HospitalBasophils # (Auto)2018-03-19 06:12:00* Test Item Value Reference Range Interpretation Comments Basophils # (Auto) (test code = 704-7) 0.0 0.0-0.1 [facility] HospitalAbsolute Immature Granulocyte (auto 2018-03-19 06:12:00* Test Item Value Reference Range Interpretation Comments Absolute Immature Granulocyte (auto (khoi t code = Absolute Immature Granulocyte (auto) 0.22 0-0.1 H [facility] HospitalActivated Partial Thromboplast Time 2018-02-17 06:46:00* Test Item Value Reference Range Interpretation Comments Activated Partial Thromboplast Time (test code = 02279-7) 35.4 23.8-35.5 [facility] HospitalProthrombin Maaf0517-56-14 06:45:00* Test Item Value Reference Range Interpretation Comments Prothrombin Time (test code = 5902-2) 13.9 11.9-14.5 [facility] HospitalProthromb Time International Ratio 2018-02-17 06:45:00* Test Item Value Reference Range Interpretation Comments Prothromb Time International Ratio (test code = 6301-6) 1.16 Oral Anticoagulant Therapy INR Values:1. Low Intensity Therapy 1.5 - 2.02 . Moderate Intensity Therapy 2.0 - 3.03. High Intensity Therapy(1) 2.5 - 3. 54. High Intensity Therapy(2) 3.0 - 4.05. Panic Value INR > 5.0 [facility] Dnkgxul3588-70-01 16:40:00* Test Item Value Reference Range Interpretation Comments Bedside Glucose (test code = 73525-7) 148 70-120 H Meter ID: [id number] [facility] Glucose 2017-12-24 16:40:00* Test Item Value Reference Range Interpretation Comments Bedside Glucose (test code = 37684-1) 148 70-120 H Meter ID: [id number] Health [facility] HospitalHe[facility] B Surface Antibody, Ihucc3475-70-87 12:55:00* Test Item Value Reference Range Interpretation Comments Hepatitis B Surface Antibody, Quant (test code = 5194-6) 9.2 Immunity>9.9 L Verified by repeat analysis Status of Immunity Anti-HBs Level Inconsistent with I mmunity 0.0 - 9.9Consistent with Immunity >9.9[facility] B Core Total Antibody 2017-12-24 12:55:00* Test Item Value Reference Range Interpretation Comments Hepatitis B Core Total Antibody (test code = 50872-7) Negative Negative Performed at: [facility] [id number] Director: Kenny Garcia MD, Phone: [phone] [facility] Surface Viwixsy1946-42-51 12:55:00* Test Item Value Reference Range Interpretation Comments Hepatitis B Surface Antigen (test code = 5196-1) Negative Negat sue [facility] B Surface Antibody, Quant 2017-12-24 12:55:00* Test Item Value Reference Range Interpretation Comments Hepatitis B Surface Antibody, Quant (test code = 5194-6) 9.2 Immunity>9.9 L Verified by repeat analysis Status of Immunity Anti-HBs Level Inconsistent with I mmunity 0.0 - 9.9Consistent with Immunity >9.9[facility] B Core Total Antibody 2017-12-24 12:55:00* Test Item Value Reference Range Interpretation Comments Hepatitis B Core Total Antibody (test code = 06811-3) Negative Negative Performed at: [address] [id number] Director: Kenny Garcia MD, Phone: [phone] [facility] HospitalHe[facility] B Surface Zxbifzs8350-01-71 12:55:00* Test Item Value Reference Range Interpretation Comments Hepatitis B Surface Antigen (test code = 5196-1) Negative Negat sue [facility] B Surface Antibody, Quant 2017-12-24 12:55:00* Test Item Value Reference Range Interpretation Comments Hepatitis B Surface Antibody, Quant (test code = 5194-6) 9.2 Immunity>9.9 L Verified by repeat analysis Status of Immunity Anti-HBs Level Inconsistent with I mmunity 0.0 - 9.9Consistent with Immunity >9.9[facility] B Core Total Antibody 2017-12-24 12:55:00* Test Item Value Reference Range Interpretation Comments Hepatitis B Core Total Antibody (test code = 91449-7) Negative Negative Performed at: [address] [id number] Director: Kenny Garcia MD, Phone: [phone] Santa [facility] B Surface Nbtjnws0333-31-83 12:55:00* Test Item Value Reference Range Interpretation Comments Hepatitis B Surface Antigen (test code = 5196-1) Negative Negat sue [facility] HospitalParathyroid Qebeusc3048-32-62 07:39:00* Test Item Value Reference Range Interpretation Comments Parathyroid Hormone (test code = 2731-8) 144 15-65 H [facility] HospitalCalcium (Send out)2017-12-24 07:39:00* Test Item Value Reference Range Interpretation Comments Calcium (Send out) (test code = 89931-0) 8.7 8.7-10.2 [facility] HospitalParathyroid Hormone Interpretation 2017-12-24 07:39:00* Test Item Value Reference Range Interpretation Comments Parathyroid Hormone Interpretation (test code = Parathyroid Hormone Interpretation) Comment . Interpretation Intact PTH Calcium (pg/mL) (mg/dL)Normal 15 - 65 8.6 - 10.2Pr imary Hyperparathyroidism >65 >10.2Secondary Hyperparathyroidism >65 <10.2Non-Parathyroid Hypercalcemia <65 >10.2Hypoparathyroidism <15 < 8.6Non- Parathyroid Hypocalcemia 15 - 65 < 8.6Performed at: [facility] [id number] Director: Kenny Garcia MD, Phone: [phone] at: [employer] [id number] Director: Cem Nathan MD, Phone: [phone] [facility] HospitalParathyroid Eclaupl4588-81-02 07:39:00* Test Item Value Reference Range Interpretation Comments Parathyroid Hormone (test code = 2731-8) 144 15-65 H [facility] HospitalCalcium (Send out)2017-12-24 07:39:00* Test Item Value Reference Range Interpretation Comments Calcium (Send out) (test code = 48762-4) 8.7 8.7-10.2 [facility] HospitalParathyroid Hormone Interpretation 2017-12-24 07:39:00* Test Item Value Reference Range Interpretation Comments Parathyroid Hormone Interpretation (test code = Parathyroid Hormone Interpretation) Comment . Interpretation Intact PTH Calcium (pg/mL) (mg/dL)Normal 15 - 65 8.6 - 10.2Pr imary Hyperparathyroidism >65 >10.2Secondary Hyperparathyroidism >65 <10.2Non-Parathyroid Hypercalcemia <65 >10.2Hypoparathyroidism <15 < 8.6Non- Parathyroid Hypocalcemia 15 - 65 < 8.6Performed at: [facility] [id number] Director: Kenny Garcia MD, Phone: [phone] at: [employer] [id number] Director: Cem Nathan MD, Phone: [phone] [facility] HospitalParathyroid Otcqqci9610-93-50 07:39:00* Test Item Value Reference Range Interpretation Comments Parathyroid Hormone (test code = 2731-8) 144 15-65 H [facility] HospitalCalcium (Send out)2017-12-24 07:39:00* Test Item Value Reference Range Interpretation Comments Calcium (Send out) (test code = 89250-8) 8.7 8.7-10.2 [facility] HospitalParathyroid Hormone Interpretation 2017-12-24 07:39:00* Test Item Value Reference Range Interpretation Comments Parathyroid Hormone Interpretation (test code = Parathyroid Hormone Interpretation) Comment . Interpretation Intact PTH Calcium (pg/mL) (mg/dL)Normal 15 - 65 8.6 - 10.2Pr imary Hyperparathyroidism >65 >10.2Secondary Hyperparathyroidism >65 <10.2Non-Parathyroid Hypercalcemia <65 >10.2Hypoparathyroidism <15 < 8.6Non- Parathyroid Hypocalcemia 15 - 65 < 8.6Performed at: [employer] [id number] Director: Kenny Garcia MD, Phone: [phone] at: [employer] [id number] Director: Cem Nathan MD, Phone: [phone] [facility] Mrofb4386-91-93 06:48:00* Test Item Value Reference Range Interpretation Comments Sodium Level (test code = 2951-2) 141 136-145 [facility] HospitalPotassium Earuo0739-69-49 06:48:00* Test Item Value Reference Range Interpretation Comments Potassium Level (test code = 2823-3) 4.4 3.5-5.1 [facility] HospitalChloride Xcyhv7241-09-17 06:48:00* Test Item Value Reference Range Interpretation Comments Chloride Level (test code = 2075-0) 97 98-107 L [facility] HospitalCarbon Dioxide Hvdox3781-08-97 06:48:00* Test Item Value Reference Range Interpretation Comments Carbon Dioxide Level (test code = 2028-9) 32 22-29 H [facility] HospitalAnion Moz2941-52-75 06:48:00* Test Item Value Reference Range Interpretation Comments Anion Gap (test code = 58237-4) 16.4 8-16 H [facility] HospitalBlood Urea Uiivigze8873-54-47 06:48:00* Test Item Value Reference Range Interpretation Comments Blood Urea Nitrogen (test code = 3094-0) 19 7-26 [facility] HospitalCreatinine2018-03-02 06:48:00* Test Item Value Reference Range Interpretation Comments Creatinine (test code = 2160-0) 3.04 0.57-1.11 H [facility] HospitalBUN/Creatinine Fhgtj8131-26-76 06:48:00* Test Item Value Reference Range Interpretation Comments BUN/Creatinine Ratio (test code = 3097-3) 6 6-25 [facility] HospitalEstimat Glomerular Filtration Rate 2017-12-24 06:48:00* Test Item Value Reference Range Interpretation Comments Estimat Glomerular Filtration Rate (test code = 84285-4) 16 >60 L Ranges were taken from the National Kidney Disease Education Program and the [facility] Kidney Foundation literature.Reference ranges:60 or greater: Hqakga35-44 ( for 3 consecutive months): Chronic kidney disease 15 or less: Kidney failureUT Health [facility] HospitalGlucose Wdgjt3655-91-93 06:48:00* Test Item Value Reference Range Interpretation Comments Glucose Level (test code = GPA0845) 83 74-118 [facility] HospitalCalcium Gevwa8240-11-18 06:48:00* Test Item Value Reference Range Interpretation Comments Calcium Level (test code = 50673-0) 8.4 8.4-10.2 [facility] HospitalTotal Ysdtbnhyn9856-02-01 06:48:00* Test Item Value Reference Range Interpretation Comments Total Bilirubin (test code = 1975-2) 0.5 0.2-1.2 [facility] HospitalAspartate Amino Transf (AST/SGOT) 2017-12-24 06:48:00* Test Item Value Reference Range Interpretation Comments Aspartate Amino Transf (AST/SGOT) (test code = Aspartate Amino Transf (AST/SGOT)) 31 5-34 [facility] HospitalAlanine Aminotransferase (ALT/SGPT) 2017-12-24 06:48:00* Test Item Value Reference Range Interpretation Comments Alanine Aminotransferase (ALT/SGPT) (test code = 1742-6) 13 0-55 [facility] HospitalTotal Eibudhi3348-72-51 06:48:00* Test Item Value Reference Range Interpretation Comments Total Protein (test code = 2885-2) 7.3 6.5-8.1 [facility] HospitalAlbumin2018-03-02 06:48:00* Test Item Value Reference Range Interpretation Comments Albumin (test code = 1751-7) 3.1 3.5-5.0 L [facility] HospitalGlobulin2018-03-02 06:48:00* Test Item Value Reference Range Interpretation Comments Globulin (test code = 54073-2) 4.2 2.3-3.5 H [facility] HospitalAlbumin/Globulin Wfoik9081-17-48 06:48:00 * Test Item Value Reference Range Interpretation Comments Albumin/Globulin Ratio (test code = 1759-0) 0.7 0.8-2.0 L [facility] HospitalAlkaline Vmwwuxxlhgo9919-23-32 06:48:00* Test Item Value Reference Range Interpretation Comments Alkaline Phosphatase (test code = 6768-6) 147 40-150 [facility] Tgwts0643-58-58 06:48:00* Test Item Value Reference Range Interpretation Comments Sodium Level (test code = 2951-2) 141 136-145 [facility] HospitalPotassium Uxwil1895-20-59 06:48:00* Test Item Value Reference Range Interpretation Comments Potassium Level (test code = 2823-3) 4.4 3.5-5.1 [facility] HospitalChloride Mmagk8589-32-55 06:48:00* Test Item Value Reference Range Interpretation Comments Chloride Level (test code = 2075-0) 97 98-107 L [facility] HospitalCarbon Dioxide Ckjci7805-83-42 06:48:00* Test Item Value Reference Range Interpretation Comments Carbon Dioxide Level (test code = 2028-9) 32 22-29 H [facility] HospitalAnion Oxf8281-78-98 06:48:00* Test Item Value Reference Range Interpretation Comments Anion Gap (test code = 27214-0) 16.4 8-16 H [facility] HospitalBlood Urea Nyfnpkxh9531-26-27 06:48:00* Test Item Value Reference Range Interpretation Comments Blood Urea Nitrogen (test code = 3094-0) 19 7-26 [facility] HospitalCreatinine2018-03-02 06:48:00* Test Item Value Reference Range Interpretation Comments Creatinine (test code = 2160-0) 3.04 0.57-1.11 H [facility] HospitalBUN/Creatinine Lvkdc6801-02-68 06:48:00* Test Item Value Reference Range Interpretation Comments BUN/Creatinine Ratio (test code = 3097-3) 6 6-25 [facility] HospitalEstimat Glomerular Filtration Rate 2017-12-24 06:48:00* Test Item Value Reference Range Interpretation Comments Estimat Glomerular Filtration Rate (test code = 24186-7) 16 >60 L Ranges were taken from the National Kidney Disease Education Program and the [facility] Kidney Foundation literature.Reference ranges:60 or greater: Lilljj34-22 ( for 3 consecutive months): Chronic kidney disease 15 or less: Kidney failureUT Health [facility] HospitalGlucose Hxsnd6981-71-03 06:48:00* Test Item Value Reference Range Interpretation Comments Glucose Level (test code = QJQ9292) 83 74-118 [facility] HospitalCalcium Erlcp3772-49-45 06:48:00* Test Item Value Reference Range Interpretation Comments Calcium Level (test code = 99542-6) 8.4 8.4-10.2 [facility] HospitalTotal Ndpeijieu7864-53-60 06:48:00* Test Item Value Reference Range Interpretation Comments Total Bilirubin (test code = 1975-2) 0.5 0.2-1.2 [facility] HospitalAspartate Amino Transf (AST/SGOT) 2017-12-24 06:48:00* Test Item Value Reference Range Interpretation Comments Aspartate Amino Transf (AST/SGOT) (test code = Aspartate Amino Transf (AST/SGOT)) 31 5-34 [facility] HospitalAlanine Aminotransferase (ALT/SGPT) 2017-12-24 06:48:00* Test Item Value Reference Range Interpretation Comments Alanine Aminotransferase (ALT/SGPT) (test code = 1742-6) 13 0-55 [facility] HospitalTotal Wfyolez1729-28-49 06:48:00* Test Item Value Reference Range Interpretation Comments Total Protein (test code = 2885-2) 7.3 6.5-8.1 [facility] HospitalAlbumin2018-03-02 06:48:00* Test Item Value Reference Range Interpretation Comments Albumin (test code = 1751-7) 3.1 3.5-5.0 L [facility] HospitalGlobulin2018-03-02 06:48:00* Test Item Value Reference Range Interpretation Comments Globulin (test code = 83614-7) 4.2 2.3-3.5 H [facility] HospitalAlbumin/Globulin Mrmoc6744-92-69 06:48:00 * Test Item Value Reference Range Interpretation Comments Albumin/Globulin Ratio (test code = 1759-0) 0.7 0.8-2.0 L [facility] HospitalAlkaline Mgcsfedexgh4690-58-44 06:48:00* Test Item Value Reference Range Interpretation Comments Alkaline Phosphatase (test code = 6768-6) 147 40-150 [facility] HospitalPhosphorus Mwtyo5575-24-68 05:25:00* Test Item Value Reference Range Interpretation Comments Phosphorus Level (test code = JRT4189) 3.3 2.3-4.7 [facility] HospitalPhosphorus Gbzmb7035-52-02 05:25:00* Test Item Value Reference Range Interpretation Comments Phosphorus Level (test code = ORQ1974) 3.3 2.3-4.7 [facility] HospitalPhosphorus Xiwvq6946-97-39 05:25:00* Test Item Value Reference Range Interpretation Comments Phosphorus Level (test code = XZG2588) 3.3 2.3-4.7 [facility] HospitalDifferential Total Cells Counted 2017-12-23 04:57:00* Test Item Value Reference Range Interpretation Comments Differential Total Cells Counted (test code = Differquincy tial Total Cells Counted) 100 [facility] HospitalNeutrophils % (Manual)2017-12-23 04:57:00 * Test Item Value Reference Range Interpretation Comments Neutrophils % (Manual) (test code = 47973-7) 78 40-74 H [facility] HospitalLymphocytes % (Manual)2017-12-23 04:57:00 * Test Item Value Reference Range Interpretation Comments Lymphocytes % (Manual) (test code = 737-7) 11 19-48 L [facility] HospitalMonocytes % (Manual)2017-12-23 04:57:00* Test Item Value Reference Range Interpretation Comments Monocytes % (Manual) (test code = 744-3) 7 3.4-9.0 [facility] HospitalEosinophils % (Manual)2017-12-23 04:57:00 * Test Item Value Reference Range Interpretation Comments Eosinophils % (Manual) (test code = 714-6) 4 0-7 [facility] HospitalPlatelet Cigmgmro3692-31-37 04:57:00* Test Item Value Reference Range Interpretation Comments Platelet Estimate (test code = 71224-4) ADEQUATE [facility] HospitalPlatelet Morphology Oqnsygj5515-39-93 04:57:00* Test Item Value Reference Range Interpretation Comments Platelet Morphology Comment (test code = 99137-7) NORMAL [facility] HospitalAnisocytosis2018-03-01 04:57:00* Test Item Value Reference Range Interpretation Comments Anisocytosis (test code = 702-1) SLIGHT [facility] HospitalRed Cell Morphology Ukoarpd6053-21-93 04:57:00* Test Item Value Reference Range Interpretation Comments Red Cell Morphology Comment (test code = 6742-1) NORMAL [facility] HospitalDifferential Total Cells Counted 2017-12-23 04:57:00* Test Item Value Reference Range Interpretation Comments Differential Total Cells Counted (test code = Erica kaplan Total Cells Counted) 100 [facility] HospitalNeutrophils % (Manual)2017-12-23 04:57:00 * Test Item Value Reference Range Interpretation Comments Neutrophils % (Manual) (test code = 00722-4) 78 40-74 H [facility] HospitalLymphocytes % (Manual)2017-12-23 04:57:00 * Test Item Value Reference Range Interpretation Comments Lymphocytes % (Manual) (test code = 737-7) 11 19-48 L [facility] HospitalMonocytes % (Manual)2017-12-23 04:57:00* Test Item Value Reference Range Interpretation Comments Monocytes % (Manual) (test code = 744-3) 7 3.4-9.0 [facility] HospitalEosinophils % (Manual)2017-12-23 04:57:00 * Test Item Value Reference Range Interpretation Comments Eosinophils % (Manual) (test code = 714-6) 4 0-7 [facility] HospitalPlatelet Wpsexymj6962-11-92 04:57:00* Test Item Value Reference Range Interpretation Comments Platelet Estimate (test code = 82991-7) ADEQUATE [facility] HospitalPlatelet Morphology Jxjdzse8035-92-33 04:57:00* Test Item Value Reference Range Interpretation Comments Platelet Morphology Comment (test code = 65386-2) NORMAL [facility] HospitalAnisocytosis2018-03-01 04:57:00* Test Item Value Reference Range Interpretation Comments Anisocytosis (test code = 702-1) SLIGHT [facility] HospitalRed Cell Morphology Eohyeyf2000-89-84 04:57:00* Test Item Value Reference Range Interpretation Comments Red Cell Morphology Comment (test code = 6742-1) NORMAL [facility] HospitalAnisocytosis2018-03-01 04:57:00* Test Item Value Reference Range Interpretation Comments Anisocytosis (test code = 702-1) SLIGHT [facility] HospitalWhite Blood Lbpti0829-48-38 04:41:00* Test Item Value Reference Range Interpretation Comments White Blood Count (test code = 6690-2) 6.06 4.8-10.8 [facility] HospitalRed Blood Qnfkl7190-52-44 04:41:00* Test Item Value Reference Range Interpretation Comments Red Blood Count (test code = 789-8) 2.82 3.6-5.1 L [facility] HospitalHemoglobin2018-03-01 04:41:00* Test Item Value Reference Range Interpretation Comments Hemoglobin (test code = 59928-5) 9.1 12.0-16.0 L [facility] HospitalHematocrit2018-03-01 04:41:00* Test Item Value Reference Range Interpretation Comments Hematocrit (test code = 4544-3) 26.8 34.2-44.1 L [facility] HospitalMean Corpuscular Tqzyou2665-79-37 04:41:00* Test Item Value Reference Range Interpretation Comments Mean Corpuscular Volume (test code = 787-2) 95.0 81-99 [facility] HospitalMean Corpuscular Wdferqjalw2249-10-82 04:41:00* Test Item Value Reference Range Interpretation Comments Mean Corpuscular Hemoglobin (test code = 785-6) 32.3 28-32 H [facility] HospitalMean Corpuscular Hemoglobin Concent 2017-12-23 04:41:00* Test Item Value Reference Range Interpretation Comments Mean Corpuscular Hemoglobin Concent (test code = 786-4) 34.0 31-35 [facility] HospitalRed Cell Distribution Klrkc9526-02-48 04:41:00* Test Item Value Reference Range Interpretation Comments Red Cell Distribution Width (test code = 62264-5) 22.2 11.7 -14.4 H [facility] HospitalPlatelet Wbgta8459-15-59 04:41:00* Test Item Value Reference Range Interpretation Comments Platelet Count (test code = 777-3) 140 140-360 [facility] HospitalNeutrophils (%) (Auto)2017-12-23 04:41:00 * Test Item Value Reference Range Interpretation Comments Neutrophils (%) (Auto) (test code = 18204-2) 79.0 38.7-80.0 [facility] HospitalLymphocytes (%) (Auto)2017-12-23 04:41:00 * Test Item Value Reference Range Interpretation Comments Lymphocytes (%) (Auto) (test code = 736-9) 7.1 18.0-39.1 L [facility] HospitalMonocytes (%) (Auto)2017-12-23 04:41:00* Test Item Value Reference Range Interpretation Comments Monocytes (%) (Auto) (test code = 5905-5) 10.4 4.4-11.3 [facility] HospitalEosinophils (%) (Auto)2017-12-23 04:41:00 * Test Item Value Reference Range Interpretation Comments Eosinophils (%) (Auto) (test code = 713-8) 2.0 0.0-6.0 [facility] HospitalBasophils (%) (Auto)2017-12-23 04:41:00* Test Item Value Reference Range Interpretation Comments Basophils (%) (Auto) (test code = 706-2) 0.2 0.0-1.0 [facility] HospitalIM GRANULOCYTES %2017-12-23 04:41:00* Test Item Value Reference Range Interpretation Comments IM GRANULOCYTES % (test code = IM GRANULOCYTES %) 1.3 0.0- 1.0 H [facility] HospitalNeutrophils # (Auto)2017-12-23 04:41:00* Test Item Value Reference Range Interpretation Comments Neutrophils # (Auto) (test code = 751-8) 4.8 2.1-6.9 [facility] HospitalLymphocytes # (Auto)2017-12-23 04:41:00* Test Item Value Reference Range Interpretation Comments Lymphocytes # (Auto) (test code = 55207-6) 0.4 1.0-3.2 L [facility] HospitalMonocytes # (Auto)2017-12-23 04:41:00* Test Item Value Reference Range Interpretation Comments Monocytes # (Auto) (test code = 742-7) 0.6 0.2-0.8 [facility] HospitalEosinophils # (Auto)2017-12-23 04:41:00* Test Item Value Reference Range Interpretation Comments Eosinophils # (Auto) (test code = 711-2) 0.1 0.0-0.4 [facility] HospitalBasophils # (Auto)2017-12-23 04:41:00* Test Item Value Reference Range Interpretation Comments Basophils # (Auto) (test code = 704-7) 0.0 0.0-0.1 [facility] HospitalAbsolute Immature Granulocyte (auto 2017-12-23 04:41:00* Test Item Value Reference Range Interpretation Comments Absolute Immature Granulocyte (auto (khoi t code = Absolute Immature Granulocyte (auto) 0.08 0-0.1 [facility] HospitalWhite Blood Rcfqd4338-55-02 04:41:00* Test Item Value Reference Range Interpretation Comments White Blood Count (test code = 6690-2) 6.06 4.8-10.8 [facility] HospitalRed Blood Qvzop0247-38-35 04:41:00* Test Item Value Reference Range Interpretation Comments Red Blood Count (test code = 789-8) 2.82 3.6-5.1 L [facility] HospitalHemoglobin2018-03-01 04:41:00* Test Item Value Reference Range Interpretation Comments Hemoglobin (test code = 04436-6) 9.1 12.0-16.0 L [facility]Hematocrit2018-[facility] 04:41:00* Test Item Value Reference Range Interpretation Comments Hematocrit (test code = 4544-3) 26.8 34.2-44.1 L [facility] HospitalMean Corpuscular Tzcaun3292-48-22 04:41:00* Test Item Value Reference Range Interpretation Comments Mean Corpuscular Volume (test code = 787-2) 95.0 81-99 [facility]Mean Corpuscular Cuueiobtme0703-11-81 04:41:00* Test Item Value Reference Range Interpretation Comments Mean Corpuscular Hemoglobin (test code = 785-6) 32.3 28-32 H [facility] HospitalMean Corpuscular Hemoglobin Concent 2017-12-23 04:41:00* Test Item Value Reference Range Interpretation Comments Mean Corpuscular Hemoglobin Concent (test code = 786-4) 34.0 31-35 [facility] HospitalRed Cell Distribution Xajmc3544-86-06 04:41:00* Test Item Value Reference Range Interpretation Comments Red Cell Distribution Width (test code = 49403-1) 22.2 11.7 -14.4 H [facility] HospitalPlatelet Bymaj6015-07-97 04:41:00* Test Item Value Reference Range Interpretation Comments Platelet Count (test code = 777-3) 140 140-360 [facility] HospitalNeutrophils (%) (Auto)2017-12-23 04:41:00 * Test Item Value Reference Range Interpretation Comments Neutrophils (%) (Auto) (test code = 24115-5) 79.0 38.7-80.0 [facility] HospitalLymphocytes (%) (Auto)2017-12-23 04:41:00 * Test Item Value Reference Range Interpretation Comments Lymphocytes (%) (Auto) (test code = 736-9) 7.1 18.0-39.1 L [facility] HospitalMonocytes (%) (Auto)2017-12-23 04:41:00* Test Item Value Reference Range Interpretation Comments Monocytes (%) (Auto) (test code = 5905-5) 10.4 4.4-11.3 [facility] HospitalEosinophils (%) (Auto)2017-12-23 04:41:00 * Test Item Value Reference Range Interpretation Comments Eosinophils (%) (Auto) (test code = 713-8) 2.0 0.0-6.0 [facility] HospitalBasophils (%) (Auto)2017-12-23 04:41:00* Test Item Value Reference Range Interpretation Comments Basophils (%) (Auto) (test code = 706-2) 0.2 0.0-1.0 [facility] HospitalIM GRANULOCYTES %2017-12-23 04:41:00* Test Item Value Reference Range Interpretation Comments IM GRANULOCYTES % (test code = IM GRANULOCYTES %) 1.3 0.0- 1.0 H [facility] HospitalNeutrophils # (Auto)2017-12-23 04:41:00* Test Item Value Reference Range Interpretation Comments Neutrophils # (Auto) (test code = 751-8) 4.8 2.1-6.9 [facility] HospitalLymphocytes # (Auto)2017-12-23 04:41:00* Test Item Value Reference Range Interpretation Comments Lymphocytes # (Auto) (test code = 49735-9) 0.4 1.0-3.2 L [facility] HospitalMonocytes # (Auto)2017-12-23 04:41:00* Test Item Value Reference Range Interpretation Comments Monocytes # (Auto) (test code = 742-7) 0.6 0.2-0.8 [facility] HospitalEosinophils # (Auto)2017-12-23 04:41:00* Test Item Value Reference Range Interpretation Comments Eosinophils # (Auto) (test code = 711-2) 0.1 0.0-0.4 [facility] HospitalBasophils # (Auto)2017-12-23 04:41:00* Test Item Value Reference Range Interpretation Comments Basophils # (Auto) (test code = 704-7) 0.0 0.0-0.1 [facility] HospitalAbsolute Immature Granulocyte (auto 2017-12-23 04:41:00* Test Item Value Reference Range Interpretation Comments Absolute Immature Granulocyte (auto (khoi t code = Absolute Immature Granulocyte (auto) 0.08 0-0.1 [facility] HospitalCreatine Kinase AS9222-45-98 13:03:00* Test Item Value Reference Range Interpretation Comments Creatine Kinase MB (test code = 46365-6) 1.20 0-5.0 [facility] HospitalTroponin F1575-40-28 13:03:00* Test Item Value Reference Range Interpretation Comments Troponin I (test code = WUM7949) -0.001 0-0.300 [facility] HospitalCreatine Kinase AK4361-54-30 13:03:00* Test Item Value Reference Range Interpretation Comments Creatine Kinase MB (test code = 25565-4) 1.20 0-5.0 [facility] HospitalTroponin C8303-45-15 13:03:00* Test Item Value Reference Range Interpretation Comments Troponin I (test code = EPR4687) -0.001 0-0.300 [facility] HospitalCreatine Kinase NQ5434-07-47 13:03:00* Test Item Value Reference Range Interpretation Comments Creatine Kinase MB (test code = 50497-2) 1.20 0-5.0 [facility] HospitalTropon R6249-69-98 13:03:00* Test Item Value Reference Range Interpretation Comments Troponin I (test code = OMY7037) -0.001 0-0.300 [facility] HospitalCreatine Jgcnug6854-44-54 12:54:00* Test Item Value Reference Range Interpretation Comments Creatine Kinase (test code = 2157-6) 46 29-168 [facility] HospitalCreatine Jdfzng9176-12-30 12:54:00* Test Item Value Reference Range Interpretation Comments Creatine Kinase (test code = 2157-6) 46 29-168 [facility] HospitalCreatine Qaxuhl6938-16-36 12:54:00* Test Item Value Reference Range Interpretation Comments Creatine Kinase (test code = 2157-6) 46 29-168 [facility] HospitalCHEM BYQYZ6374-35-20 09:48:007.7[facility]annCHEM ZVOZV1690-64-81 09:48:89790Eqavagzn HermannCHEM XCHJM2523-67-70 09:48:0027[facility]annCHEM REEHF6609-42-33 09:48:004.1[facility]annCHEM ADRVP1948-67-50 09:48:83196Jodnsqkq [facility]annCHEM CUADP4234-61-80 09:48:0023 [facility]annCHE[facility] QCUUU7221-47-47 09:48:006.24[facility]annCHEM PANEL 2016-06-10 09:48:24754Frdkawzb [facility]annCHEM JPCWI4756-71-45 09:48:007[facility]annCHEM HHGCV5931-32-54 09:48:0012.1[facility]annCHEM VDVFJ9165-80-35 17:15:007.6[facility]annCHEM IOEWU5367-15-29 17:15:82729Iuyshtjb [facility]annCHEM XUXWR1793-80-83 17:15:30929Oxjklusl [facility]annCHEM ONULV7298-76-26 17:15:0025 [facility]annCHE[facility] QOTHS5341-85-80 17:15:004.3[facility]annCHEM PANEL 2016-06-09 17:15:004.99[facility]annCHEM MXNYQ9188-99-05 17:15:0015[facility]annCHEM FRKYS2245-25-10 17:15:78665Xkrlnamb HermannCHEM ACPNP0297-44-10 17:15:0015.3[facility]annCHEM XPBMM7578-85-12 17:15:009[facility] GIPUKLPUMA6816-29-77 17:15:0027.4[facility] TmjobbuGGSUVEVAFR7899-48-30 17:15:00 17.6[facility] YvvdyavXQHJAYPJQQ8001-37-37 17:15:0032.5[facility]annHEMATOLOGY 2016-06-09 17:15:00* Test Item Value Reference Range Interpretation Comments MCH (test code = MCH) 31.3 pg 27.0-31.0 [facility] IbkavsxOURBEGAOTA3925-82-22 17:15:0096.2[facility]annHEMATOLOGY 2016-06-09 17:15:007.4[facility] ImmyfurRZRIQBTGMV0636-96-56 17:15:18020Cadpgksv MwiqbwqLNRAJICBIT0244-19-95 17:15:007.2[facility] LsdrebgBEYYWYHVIY4723-99-13 17:15:008.9[facility] IlztupzWZRJYLSMUH8088-41-24 17:15:002.85[facility] QUGGWKFQDA9233-50-22 17:15:000.6[facility] OefslfmSJLSMCGWND0431-43-16 17:15:003.7 [facility] KwmmlnoKJNAGWXEHD4514-40-89 17:15:006.4[facility]annHEMATOLOGY 2016-06-09 17:15:000.7[facility] JysnwazAVSCVGPFRW2150-13-81 17:15:005.7[facility] ZmmsxftBYFIFOUCNB3403-40-23 17:15:000.3[facility] YvmlffpQDQCXTLXGI7330-70-24 17:15:000.5[facility] BlqihnaCUCQBAGEAC4110-62-25 17:15:0079.6[facility] ORKGZWXDVR4431-96-24 17:15:009.7[facility] QmuktjzXVGYIQJGNU2016-18-89 03:32:00 Negative *NA*(06/05/16 10:32 PM)[facility]annCARDIAC CCRTWTB8317-64-64 12:05:0068[facility]annCARDIAC HSSMJWQ4723-81-07 12:05:001.3[facility] CARDIAC ZTAZFHQ1104-56-45 12:05:0038[facility]annCARDIAC ILYJLYK8668-02-10 12:05:003.4[facility]annCHEM QUUAH6726-92-71 12:05:006[facility]annCHEM DRRVG1357-22-94 12:05:0012[facility]annCHEM IGLHZ5798-48-02 12:05:003.1 [facility]annCHEM UQMEJ3476-47-38 12:05:0019[facility]annCHEM PANEL 2016-06-05 12:05:0023.6[facility]annCHEM EMKYN5589-00-32 12:05:48894Lszttjqh HermannCHEM ADXGA7557-57-72 12:05:000.2[facility]annCHEM BOAPN3850-22-22 12:05:0097[facility]annCHEM GLDAN0024-31-43 12:05:007.4[facility]annCHEM DGQYL2723-34-64 12:05:006.7[facility]annCHEM FSWXC9293-42-44 12:05:0026 [facility]annCHEM JVVIK1617-30-04 12:05:000.9[facility]annCHEM PANEL 2016-06-05 12:05:006[facility]annCHEM VSZYD4600-39-87 12:05:003.6[facility]annCHEM JZFZM5258-60-25 12:05:28550Dvccykev HermannCHEM JVUAJ0016-97-17 12:05:004.6[facility]annCHEM UEHNL6963-86-98 12:05:006.76[facility]annCHEM PGZYU6929-45-90 12:05:87381Dmzaoxyp HermannCHEM SLJEC8850-58-54 12:05:0039 [facility]annCHEM AQAWQ2131-00-87 12:05:006.6[facility]annCHEM PANEL 2016-06-05 12:05:002.0[facility]annCHEM QNREA2933-82-19 12:05:55360Amngtzhc IewjfvlPMCSTPJPVF0192-98-03 12:05:007.5[facility] FgblvgwFACXSQHGPB4527-18-73 12:05:47012Ecptsflt NpsjzpnCEJTRTPWFZ5156-85-51 12:05:00* Test Item Value Reference Range Interpretation Comments MCH (test code = MCH) 31.7 pg 27.0-31.0 [facility] ZqyumhiTQWKZTMWCN8157-33-39 12:05:0016.3[facility] HermannHEMATOLOGY 2016-06-05 12:05:0033.3[facility] KgezxtoQSPWXVQFZD0897-90-09 12:05:003.02[facility] UbchywlCMHIYTDYKA8880-86-74 12:05:0095.3[facility] LvryhtaWXMXKRLCGS6174-02-52 12:05:009.6[facility] WlklhzmAKSYREWUCO6531-26-06 12:05:0028.8[facility] QJOPCRUPFK4217-61-93 12:05:0010.0[facility] AojlbrhRJURVPJERA6530-05-57 12:05:00 0.7[facility] KkyfugdPFEAOOOEMA5438-21-59 12:05:00Normal (06/05/16 7:05 AM)[facility] SisjlgwHIYBHAPPRY1481-96-98 12:05:00Normal (06/05/16 7:05 AM)[facility] EXTUSSMIQA7590-11-01 12:05:0066.4[facility] XcadyhhYTFBENRULQ8971-20-29 12:05:00 0.5[facility] ZlsobfrGINAYESSWX0098-68-00 12:05:006.7[facility]annHEMATOLOGY 2016-06-05 12:05:006.6[facility] CwgcxzhMEYXULOLER5912-33-63 12:05:003.1[facility] SytxpscLINUGNQGTG7707-40-30 12:05:0023.4[facility] XdlblwtXUKQPANJCU5770-43-39 12:05:000.3[facility] AiurcdvSYARJYHXVR8072-05-72 12:05:002.3[facility] HermannCHEM DXPTA1095-27-64 13:40:005[facility]annCHEM GNHNT6590-57-14 13:40:0024[facility]annCHEM GKLOY2540-94-33 13:40:008.8[facility]annCHEM EZQEV2416-81-33 13:40:008.2[facility]annCHEM MATWK9822-28-51 13:40:0017.2[facility]annCHEM VAUFD5321-81-12 13:40:0068[facility]annCHEM BTVDM2224-23-68 13:40:20788 [facility]annCHEM FNMWD5679-26-29 13:40:87737Faotakfg HermannCHEM PANEL 2015-04-22 13:40:005.2[facility] HermannCHEM OLFND8610-20-06 13:40:0098[facility] LmloqvsGNHYQRUGSN7648-03-80 13:40:007.6[facility] KpzscznQBKAMBFSGY4623-30-50 13:40:0098.5[facility] FmfdokbCGGRWIVSML1797-04-42 13:40:87846Grlfkzvt [facility] JHCILQCCWF6017-68-84 13:40:0019.1[facility] QtbjntyJVHBFMOSNK0909-67-61 13:40:00 33.3[facility] CmdrfxnJPCVMUXBCW1241-80-18 13:40:00* Test Item Value Reference Range Interpretation Comments MCH (test code = MCH) 32.8 pg 27.0-31.0 [facility] YkvjajiQTHCSACIIU0562-68-79 13:40:0024.7[facility] HermannHEMATOLOGY 2015-04-22 13:40:008.2[facility] MklasxhEIYGKZPERP5408-34-21 13:40:002.51[facility] TlhuvccTULAMZURCL7102-83-90 13:40:006.8[facility] NznhocmMAFFXQHNDO9848-77-16 13:40:0019.5[facility] HhvpxrtNEMIIOHDIN3116-87-54 13:40:007.8[facility] YQPWOLYZIZ6726-58-39 13:40:004.7[facility] McwrhpwJJIWIXOZBB6757-40-31 13:40:000.3 [facility] AnumajuINBZVQJLDY6652-89-36 13:40:004.4[facility] HermannHEMATOLOGY 2015-04-22 13:40:001.3[facility] RbjvfbgOUWYPYREKI8037-00-94 13:40:000.5[facility] ArzltliQQTJGGYDRT0136-59-55 13:40:000.3[facility] VfftixkXDBSOZZCDB9923-49-21 13:40:0068.0[facility] KcltjzlMGDXJNBHHSBF9800-66-93 09:33:0022.1[facility] OTHLKCZJGLRL8553-33-35 09:33:006[facility] ShqcrjuDUJWLYVJEHTA7936-48-01 09:33:00 42[facility] KnclpcuOBVIWTJDSXQK1748-11-50 09:33:0086[facility] HermannELECTROLYTES 2015-04-17 09:33:008.2[facility] LtvnayrDMBKDASVAPOO6759-11-97 09:33:007.6[facility] CkwcwdwQZCQHKEILUPR3213-31-25 09:33:0025[facility] DbmgiikLCDIVIURULXE2705-04-45 09:33:005.1[facility] OjsdqtpXAWKHSVFHEAW9579-08-32 09:33:93856Fmwertch [place] WRBTRUTVLWPW4995-33-52 09:33:0090[facility] UotetoeZLHVIGBHRI5182-99-21 09:33:00 8.6[facility] JvrxdgxJIKYZYCCMR8181-33-98 09:33:003.11[facility]annHEMATOLOGY 2015-04-17 09:33:0010.2[facility] MlkdhqrJBUSBZDDRN4351-48-92 09:33:0033.4[facility] LjstgfzXOHJGJRMDK1210-52-04 09:33:00* Test Item Value Reference Range Interpretation Comments MCH (test code = MCH) 32.9 pg 27.0-31.0 [facility] OnexwloEUTDBBEDNB3497-79-77 09:33:0030.6[facility] HermannHEMATOLOGY 2015-04-17 09:33:0098.3[facility] XgweudlTWVVIBOXOA2472-43-16 09:33:0020.0[facility] HuaqzseAOJTMSJLVN5174-04-28 09:33:82308Svnbaypu IhgkdlzPKNHCSAEGV0109-51-00 09:33:009.7[facility] JucdfzqUBWOSHABUG6789-67-73 09:33:003.0[facility] JZUSLIALOL0216-48-17 09:33:000.6[facility] PzpdymkQXMKRVDVKK6242-49-53 09:33:006.5 [facility] JxyjzpoOWQUPYDVAI1176-20-55 09:33:00Normal (04/17/15 4:33 AM)[facility] HkbimjaPYKDEEFDTQ7576-99-00 09:33:007.4[facility] VvhdtfwPJGMTGQYFS9477-30-67 09:33:000.7[facility] DvragmvIDCMWZMOGR5952-67-38 09:33:000.3[facility] KMGJYJVPHW4036-11-42 09:33:002.2[facility] YnmamhvIRBGTSCBRO0704-63-74 09:33:00 Normal (04/17/15 4:33 AM)[facility] QkeapexHMAFFKYMTW5085-67-89 09:33:0066.5 [facility] LthvwuoSYCNMFQSIU2170-44-37 09:33:0022.5[facility] HermannHEMATOLOGY 2015-04-17 09:33:000.1[facility] QsufrszJJPLIRZVUR6771-27-62 15:02:004.4[facility] JuujkokRBUYWFBKGU2103-64-97 15:02:000.5[facility] VeqohylGSSBNSSDLH2434-99-34 15:02:000.5[facility] VvszeqsKBNQYDNPWW7993-48-43 15:02:000.2[facility] PYURCAAQDR5731-55-18 15:02:001.7[facility] XdwsnxjSVNAFEMKVP4734-07-46 15:02:003.5 [facility] AtkxnjaVGLUDOHXPC1320-46-49 15:02:007.2[facility]annHEMATOLOGY 2015-04-16 15:02:0064.1[facility] JridnbjFLWKQUTXPG7454-52-17 15:02:0024.7[facility] CmgfwunMYLADZNBKV0601-05-84 15:02:007.4[facility] EkgbxnuTAHAALMZXM1133-91-18 15:02:02203Jjvbqblh WkjqelzMOUWWUAYTZ6902-55-60 15:02:0020.3[facility] MSIGMVLMUU9722-83-67 15:02:0032.9[facility] PvjyladOTFRJHWCGO6126-06-75 15:02:00 99.0[facility] ZttuunpWAFSOCLCCO6923-28-75 15:02:00* Test Item Value Reference Range Interpretation Comments MCH (test code = MCH) 32.6 pg 27.0-31.0 [facility] BwdbkfxRPAVMZQAFO8295-31-74 15:02:0032.3[facility] HermannHEMATOLOGY 2015-04-16 15:02:0010.6[facility] UmsmipdYJQMYDTXIN4513-60-51 15:02:003.26[facility] WoysujgOQIDOCGDWP4814-16-77 15:02:006.8[facility] TslqmrnZUQKAINDOK7593-05-07 15:02:0053[facility] BumautiOSBCQOTPNS5644-69-86 15:02:0011.1[facility] HermannCHEM RPFAE6690-28-82 18:40:28411Ycpqfyic HermannCHEM AOVUL5211-89-78 18:40:0012 [facility]annCHEM OFXGV2877-43-20 18:40:000.4[facility] HermannCHEM PANEL 2015-04-15 18:40:0016[facility]annCHEM DGRWW9062-99-59 18:40:74261Ubrxmjzd HermannCHEM IPVOP0470-15-44 18:40:0084[facility]annCHEM YYVQF7306-26-69 18:40:003.9[facility]annCHEM ONEBY5458-97-87 18:40:008.7[facility]annCHEM UUMSB7823-34-83 18:40:0017[facility]annCHEM SFRZJ6964-05-06 18:40:0029 [facility]annCHEM DRFQY7900-90-72 18:40:004.0[facility]annCHEM PANEL 2015-04-15 18:40:0036[facility]annCHEM IOKAD8214-80-83 18:40:008.5[facility]annCHEM SEQSI2635-25-07 18:40:0093[facility]annCHEM ICYZB0162-73-01 18:40:004.2[facility]annCHEM RPACY8273-95-50 18:40:30059Cqzgfbtl HermannCHEM TEWNV1283-59-27 18:40:0010.2[facility]annCHEM VSWFY1851-35-43 18:40:004 [facility]annCHEM AIZEA3072-24-41 18:40:004.8[facility]annCHEM PANEL 2015-04-15 18:40:000.8[facility] YvrlmtmFPSHSSDXNP5946-67-56 18:40:00* Test Item Value Reference Range Interpretation Comments PT (test code = PT) 12.6 s 12.0-14.7 [facility] BqewdmrBHWOFMFAML1588-20-69 18:40:00* Test Item Value Reference Range Interpretation Comments PTT (test code = PTT) 36.1 s 22.9-35.8 [facility] JaishnnQWYUHQJNBK3445-82-81 18:40:000.94[facility] HermannIMMUNOLOGY 2015-04-15 18:40:00Negative *NA*(04/15/15 1:40 PM)[facility]annCHEM PANEL 2015-01-11 12:54:59158Syeffxzt HermannCHEM WKYAK2506-70-10 12:54:006[facility]annCHEM CNYVG3157-16-23 12:54:19065Jybfkizp HermannCHEM PPGXV6037-07-88 12:54:009[facility]annCHEM RYAGI2701-50-53 12:54:003.5[facility]annCHEM XEPVV1451-46-39 12:54:0026[facility]annCHEM VGAEE9537-81-98 12:54:007.3 [facility]annCHEM EADBO3288-59-40 12:54:0093[facility]annCHEM PANEL 2015-01-11 12:54:0057[facility]annCHEM ZBLWL0278-46-83 12:54:000.5[facility]annCHEM GNGZI5329-65-69 12:54:007.1[facility]annCHEM MGOGA7816-40-23 12:54:0024[facility]annCHEM HZHDR0800-96-22 12:54:007.9[facility]annCHEM QNNPV9443-30-53 12:54:004.9[facility]annCHEM TWIIS9052-72-90 12:54:32445 [facility]annCHEM LMSTS1867-89-14 12:54:17962Vxbszbpg HermannCHEM PANEL 2015-01-11 12:54:000.9[facility]annCHEM UYUVM0274-87-42 12:54:003.8[facility]annCHEM CLLPC7818-61-54 12:54:0018.9[facility]annCHEM AAGZS2528-55-40 12:54:008[facility] QelsgeeFPCKHXBELY3988-16-10 12:54:00* Test Item Value Reference Range Interpretation Comments MCH (test code = MCH) 32.0 pg 27.0-31.0 [facility] LthrdypTNTXOREXVU6585-49-87 12:54:0033.0[facility]annHEMATOLOGY 2015-01-11 12:54:0097.1[facility] QhbodbsOINZRJFYVD8264-39-56 12:54:0016.3[facility] NshdgtvLUANNFWXUE5744-33-02 12:54:0032.3[facility] UgceoowCQIGEBQJEU3001-26-58 12:54:03135Xwkukire DcihixkJCKFTEHXPS2413-34-28 12:54:007.1[facility] ELHNVEDKHR6578-92-88 12:54:0010.7[facility] NzgjmsgCBWZBRUINT4999-16-29 12:54:00 3.33[facility] TmblvkfRZBQRBMJJL9915-66-84 12:54:006.4[facility]annHEMATOLOGY 2015-01-11 12:54:000.4[facility] UoeyseyZYKUREDSWG0840-91-79 12:54:000.5[facility] ZgvfzyyIWCWPNUOAO9173-29-77 12:54:001.4[facility] VeqigovMXXMREFOWO4843-61-36 12:54:008.3[facility] YhdhkanMUKOPAMIOV9287-86-49 12:54:005.8[facility] CXSQKTHBKB3902-39-02 12:54:004.0[facility] IftxkryPOWXKXEULY2242-72-28 12:54:000.3 [facility] AbzxqabLSSDUMTEIU7349-07-25 12:54:0022.4[facility]annHEMATOLOGY 2015-01-11 12:54:0063.2[facility] HermannREFERENCE LAB KAFALMJ3646-28-10 19:17:00 See Report 20(11/06/14 1:17 PM)[facility] HermannANEMIA WTOEA8928-22-08 18:07:85768 [facility]annANEMIA BGZFK5595-59-79 18:07:66208Oevfcljn HermannANEMIA STUDY 2014-11-06 18:07:57209Hupfcprz HermannANEMIA EIIPS6503-67-18 18:07:0838[facility] HermannANEMIA GQCVJ1153-35-94 18:07:457104Nteemnfe HermannCHEM EZBYJ3513-62-85 18:07:0833[facility] HermannCHEM MILKN2271-45-07 18:07:083.5[facility]annCHEM NZYGP1071-54-98 18:07:085.1[facility]annCHEM XJZBF0338-55-48 18:07:082.3 [facility]annCHEM GBRTE7284-67-94 18:07:088[facility]annCHEM PANEL 2014-11-06 18:07:080.4[facility] HermannCHEM BERUR3109-52-03 18:07:0826[facility]annCHEM DZGPT9285-97-16 18:07:0820[facility]annCHEM KKCJE6873-79-95 18:07:47796Thtnufnl HermannCHEM AZFWT3833-15-94 18:07:084.0[facility]annCHEM RAIIF4502-81-13 18:07:088.9[facility]annCHEM SBJSV6880-78-14 18:07:0830 [facility]annCHEM IBQMB8119-13-96 18:07:088.2[facility]annCHEM PANEL 2014-11-06 18:07:0869[facility] HermannCHEM JDNKL0385-17-43 18:07:0899[facility]annCHEM AZDZW7620-18-54 18:07:085.2[facility]annCHEM UBBQF5479-96-68 18:07:085.5[facility]annCHEM KKTBW2888-45-77 18:07:0845[facility]annCHEM MGQHI7640-33-27 18:07:56471Sxfyltkr HermannCHEM TWCHE4186-27-17 18:07:081.0 [facility]annCHEM DSJQM7645-03-92 18:07:088[facility]annCHEM PANEL 2014-11-06 18:07:084.2[facility] HermannCHEM OEWHK5325-05-18 18:07:0813.2[facility] HermannDRUG PAOWZG2681-83-78 18:07:08Negative (11/06/14 12:07 PM)[facility] ICGIUJ4623-54-31 18:07:08Negative (11/06/14 12:07 PM)[facility] HermannDRUG GVZYWD5890-73-72 18:07:08Negative (11/06/14 12:07 PM)[facility]annDRUG SCREEN 2014-11-06 18:07:08Negative (11/06/14 12:07 PM)[facility]annDRUG SCREEN 2014-11-06 18:07:08See Note 4(11/06/14 12:07 PM)[facility] 2014-11-06 18:07:08Negative (11/06/14 12:07 PM)[facility] 2014-11-06 18:07:08Negative (11/06/14 12:07 PM)[facility] 2014-11-06 18:07:08Negative (11/06/14 12:07 PM)[facility] 2014-11-06 18:07:08Negative (11/06/14 12:07 PM)[facility] 2014-11-06 18:07:08Negative (11/06/14 12:07 PM)[facility] 2014-11-06 18:07:080.6[facility] VknpcbcYBNDHYERRE3669-13-50 18:07:080.5[facility] WaotngbOCOBMXTPEC9143-53-55 18:07:082.0[facility] LgstkbhCXNWGCFKPG0992-21-84 18:07:083.8[facility] HyztfpaQGZCHSNOPU8318-91-70 18:07:080.5[facility] UJQYCPTJYS0806-19-64 18:07:088.3[facility] FbvozniPEJFLBNRVS5648-55-64 18:07:088.0 [facility] MpwvcnyIOVIEVTDUL0588-54-27 18:07:0828.7[facility]annHE[facility]OLOGY 2014-11-06 18:07:0854.5[facility] VkwdlswAMZZNHQTCM5180-20-84 18:07:07376Cvuzlxrc PgqdplzRFUFMTEFFM2643-16-55 18:07:08Negative (11/06/14 12:07 PM)[facility] EOTOLVHEGJ8906-80-57 18:07:69628Fccmvrpa LafpgswFFHQVXYTUL5908-69-58 18:07:46895 [facility] DnxmymvDRFFFFTMBS7163-70-21 18:07:08Negative (11/06/14 12:07 PM)[facility] XfryxriSBUVVNHGQE4483-05-28 18:07:080.97[facility] YmkybpsFQHPCHDETW8453-27-93 18:07:08Negative (11/06/14 12:07 PM)[facility] UlobjkeQHKBHDBWOF4724-70-32 18:07:08 1.05[facility] YhjkeinDZRLQJUXAB3043-48-46 18:07:08* Test Item Value Reference Range Interpretation Comments PT (test code = PT) 13.7 s 12.0-14.7 [facility] VxttmvfJQWEXOAVJI4042-96-98 18:07:08* Test Item Value Reference Range Interpretation Comments PTT (test code = PTT) 38.5 s 22.9-35.8 [facility] QcbpehiTIMQXBQCJN6248-51-16 18:07:0814.1[facility]annHEMATOLOGY 2014-11-06 18:07:088.1[facility] UhgkcdsKONTTHXZZY4619-07-63 18:07:92789Ckxuozjr GbtlgbxCTGDERFEAN0641-31-24 18:07:0831.2[facility] KegndqtSCGOHRDMGU4895-42-27 18:07:0838.1[facility] JenjzuaDUFKBRTXOX1985-05-71 18:07:0891.3[facility] RROREBSEQA8872-40-62 18:07:084.17[facility] GuofqwxTBBVBZKEJI8560-11-86 18:07:08* Test Item Value Reference Range Interpretation Comments MCH (test code = MCH) 28.5 pg 27.0-31.0 [facility] LofazseKEZNUBQHES6740-24-97 18:07:0811.9[facility]annHEMATOLOGY 2014-11-06 18:07:086.9[facility] IfymbnsOZWHDAIUAQ4298-70-20 18:07:0831[facility] CchidiiBFJXBSHBXI7894-02-41 18:07:080.63[facility] CyzebamOQRVVCOVAV1273-03-32 18:07:083.0[facility] UwoupxxYDBVWZYGYA4758-31-91 18:07:08Non Reactive *NA*(11/06/14 12:07 PM)[facility] JxhptokWGQEKNLTQP8286-17-89 18:07:082.4[facility] XrfjflkGCOQTIQLJX1814-92-73 18:07:081.6[facility] EnwdgoaUJVXUAJJOI6426-84-05 18:07:0846.3[facility] VtjsrfbVSAVDYTQCT2091-82-37 18:07:0825.0[facility] XHWGROYHWD9178-68-70 18:07:080.2[facility] IcfkseuLPBKCJFJNO2805-45-34 18:07:08 Reactive *ABN*(11/06/14 12:07 PM)[facility] AprlyxfAWQBBGVGOK8128-78-78 18:07:08 1.28[facility] HwkidzcLKQDNFTCXN0499-53-82 18:07:0811.9[facility]annIMMUNOLOGY 2014-11-06 18:07:083.4[facility] QsvzzetASYKVNSQLL6007-46-40 18:07:0815.6[facility] GiqbhedWMUBLVHHPB8137-98-83 18:07:0811.3[facility] XuypvsmMWDEMSRTPZ3548-41-82 18:07:0857.8[facility] HzvoxhpKMJITHHPAZ1849-62-70 18:07:080.93[facility] KMPTXUIYPD2263-93-29 18:07:080.98[facility] XdfqdlyAMAXDPYGDF7815-97-24 18:07:08 0.28[facility] JkluzwuMESMQQDEND9958-15-78 18:07:084.74[facility]annIMMUNOLOGY 2014-11-06 18:07:088.2[facility] AqwbigpNACRSMAZSR5496-63-32 18:07:08>8.0[facility] YtubsuxOBXXVABIEI0123-63-46 18:07:086.4[facility] QfcgkhuHHFQZZSZGM5923-45-06 18:07:081.45[facility] VuywzieQVRWNLGOER7789-60-19 18:07:16520.32[facility] UVEDJZGSGN8028-56-04 18:07:24301.57[facility] FumpphwALIQDUDXCT1506-57-18 18:07:08 Negative (11/06/14 12:07 PM)[facility] HwzcjjcOKCYRTNMEJ7000-89-65 18:07:08Negative *NA*(11/06/14 12:07 PM)[facility] CttubjvQJJKHNDTSB7027-92-41 18:07:086.6[facility] YgtsojwCGIEYEUCXC7629-60-50 18:07:08Negative *NA*(11/06/14 12:07 PM)[facility] GjeoyufCXFDXJAGTE8549-46-00 18:07:08Negative *NA*(11/06/14 12:07 PM)[facility] MgvwlgdTQUGEMJNUH2796-80-58 18:07:08Negative *NA*(11/06/14 12:07 PM)[facility] GnzrigrFVGSVTRKLH5441-93-56 18:07:08<0.2[facility] UvjuxilEDIOANLLSW3859-72-68 18:07:08>8.0[facility] IsstdlmJGEWED6596-68-91 18:07:082.97[facility] HermannLIPIDS 2014-11-06 18:07:0875[facility] FdzxevyEZTQUG0129-66-61 18:07:0845[facility] AHRZAV7159-20-82 18:07:10898Npxnxrqf QngiqlzVQKKWV2579-75-63 18:07:85887Mahoduij StnvqwkAWYOPS1937-30-92 18:07:0861[facility]annMOLECULAR OGFPWWZKXG9144-28-60 18:07:08Negative (11/06/14 12:07 PM)[facility]annMOLECULAR DIAGNOSTIC 2014-11-06 18:07:08<2.0[facility]annSPECIAL HWMQPXQVJ0694-44-95 18:07:085.5 [facility] AwdgdziXUYESPNKBT1688-93-73 18:07:00046Jmdkwhyh HermannCARDIAC ENZYMES 2014-09-19 13:47:000.7[facility]annCARDIAC QWMKLOY3797-84-72 13:47:00<0.02 [facility]annCARDIAC LQMPOMD1653-41-42 13:47:0059[facility]annCARDIAC AAVWUNX8949-78-97 13:47:001.2[facility]annCHEM XPFVU9323-48-57 13:47:005.1 [facility]annCHEM BCZOQ7029-09-91 13:47:002.3[facility]annCHEM PANEL 2014-09-19 13:47:006[facility]annCHEM BOHZH1869-34-37 13:47:007.3[facility]annCHEM AJXPQ7185-57-70 13:47:0026[facility]annCHEM DZWPL7857-09-34 13:47:003.4[facility]annCHEM UVDIQ2352-13-05 13:47:0052[facility]annCHEM LMBOF0255-77-79 13:47:006.8[facility]annCHE[facility] LPOYT6484-88-66 13:47:62563 [facility] FKIEP2239-28-66 13:47:005.6[facility]annCHEM PANEL 2014-09-19 13:47:30249Vsgbgqki HermannCHEM HLNGH6695-01-91 13:47:0098[facility]annCHEM UNHOL3038-11-69 13:47:0015.6[facility]annCHE[facility] NQMCX8704-20-33 13:47:008[facility]annCHEM NURRN1269-89-04 13:47:003.6[facility]annCHEM LYFZD5381-02-92 13:47:000.9[facility]annCHEM MWCJV7426-70-99 13:47:0018 [facility]annCHE[facility] FUMYF1762-67-03 13:47:000.3[facility]annCHEM PANEL 2014-09-19 13:47:04791Krwelccv HermannCHEM RFKAU2732-92-52 13:47:007.0[facility]annCHEM NLBSJ5917-99-92 13:47:0034[facility] NrktkzlXTTYLKWKYQBAW0870-91-41 13:47:00Negative *NA*(09/19/14 7:47 AM)[facility] FicgnotWJYEPRGWDE8584-32-93 13:47:006.9[facility] HriichpWRYNIEHAPO7584-97-13 13:47:003.32[facility] YBMXOTQMPD6102-22-92 13:47:00* Test Item Value Reference Range Interpretation Comments MCH (test code = MCH) 30.8 pg 27.0-31.0 [facility] ZfhwidoWLQOCSMXHG0121-60-24 13:47:0094.3[facility] HermannHEMATOLOGY 2014-09-19 13:47:008.8[facility] KrpslrwUFXGELWRVX0319-32-16 13:47:0031.3[facility] KvjsrsoZOPTPWYXJL5375-47-74 13:47:0010.2[facility] ZoqikpgPKVWMYLIIA3033-51-92 13:47:0014.2[facility] NlvntmqHCCEUKCUJQ9545-31-31 13:47:68662Frsrdkmz [facility] JIFLHDBZUO4221-16-70 13:47:0032.6[facility] VpjebqmAJDIUFBETD7615-23-68 13:47:00 1.7[facility] ValhiqxDZMAEYXAWP9676-79-48 13:47:000.2[facility]annHEMATOLOGY 2014-09-19 13:47:000.5[facility] IcjvoptEDERQCNRZC5388-48-29 13:47:0025.3[facility] PivbajxYLOYPXNPIS4116-01-23 13:47:0063.9[facility] GbrldxlYWHJFUGNSR1697-08-67 13:47:007.4[facility] YwtinnsUCWPOGVLQE3450-56-67 13:47:002.8[facility] ZOKBJIHOPA9756-38-80 13:47:004.4[facility] JikebatNLKZHYHKEW5388-82-81 13:47:000.6 [facility]annCHEM LHZIG1299-96-89 12:53:17310Adfeowyl HermannCHEM PANEL 2014-09-03 12:53:89080Jdabrptm HswjixgLXPOJFZZPLXJ0969-57-03 12:53:24958Aqgaomsr GpirbasODFGMPSIJJCN6958-38-61 12:53:004.2[facility] DzpvrqqHGPGSIPHDWLK9840-90-49 12:53:0097[facility] FvqtcubQXZNDGJTDKMB2167-70-20 12:53:005[facility] RTISDGZICWYJ1561-61-06 12:53:000.5[facility] YvfrapiLORJPTBALNAZ8715-20-67 12:53:38915Xbbwhlvr RnrwiraRSPKJILZSZKU9313-03-11 12:53:007.5[facility] XBQYVZZAKIXC0317-75-57 12:53:007.5[facility] NjywzljGUDPGGDVUCRE9253-43-75 12:53:0028[facility] VwxvjimKYNYAYVVYRPW3555-12-71 12:53:0062[facility] VRJKYWPHGBEY9206-32-91 12:53:0027[facility] RuxyqitRUPRNAHZNQNM4556-48-67 12:53:00 3.7[facility] JcrqmobPCJLUNWNCFAV7855-98-95 12:53:008.8[facility] CMTTGXZSTMGU7215-93-76 12:53:69829Oguqdwkw KgttuxlJUOEUGSQFDSC3183-16-84 12:53:0015[facility] EaehisiZYEUJQWNOMCD1819-26-16 12:53:001.0[facility] HCNBBQKBVDBJ9486-25-55 12:53:003.8[facility] FklxueoUIXBKADMJFUQ5445-85-66 12:53:007[facility] CfzweepYMDUEQFYXIPO9846-10-04 12:53:0016.2[facility] ALPJRPUTGZ9702-83-46 12:53:00* Test Item Value Reference Range Interpretation Comments MCH (test code = MCH) 31.4 pg 27.0-31.0 [facility] WdrsfxgOYMGTEQFRN1312-37-46 12:53:007.4[facility] HermannHEMATOLOGY 2014-09-03 12:53:77470Jjkvaveo QxyftroZKPWTIAXQK1868-76-22 12:53:0010.1[facility] PbhokoqVMGYNQZMTX0530-41-16 12:53:0014.2[facility] XtsqldxUJPPCIDBIQ8559-57-44 12:53:0034.0[facility] WnlejthBZIGIFNFVP1295-28-00 12:53:007.1[facility] BECSELMWZH3251-08-11 12:53:003.21[facility] KwkpfmfAKMGONSAZA9297-42-48 12:53:00 92.5[facility] NmovxhsAKZDRFKLNP1008-72-20 12:53:0029.7[facility]annHEMATOLOGY 2014-09-03 12:53:0025.1[facility] MkwxpjeTFWRKJMYSI4514-18-96 12:53:008.0[facility] XszkiowYIMDJLKCYP9228-58-32 12:53:001.8[facility] YpvvqmqCLYPIKDZRJ7887-00-38 12:53:000.6[facility] ShplgcrZIWPUFUCPM2397-53-34 12:53:000.3[facility] WJUSUQPVAB9102-62-45 12:53:004.5[facility] RnanjalUAWRDCFLAR6625-03-76 12:53:00 62.9[facility] OlcrfuzQSLNLYJMWU9928-11-94 12:53:003.6[facility]annHEMATOLOGY 2014-09-03 12:53:000.4[facility] SynoqiaRRVGANPFCP9452-70-58 12:53:00Negative (09/03/14 6:53 AM)[facility] HermannANEMIA ONOON1575-17-34 10:32:99702Ouquimel HermannANEMIA DPHCO4010-59-90 10:32:0039[facility] HermannANEMIA GCJLT8745-56-82 10:32:47225Cbkateps HermannANEMIA ZOXDO6406-11-81 10:32:24145Yaqucbxi [place] ANEMIA ZPCIC0343-80-00 10:32:72784Ulaabpjz HermannANEMIA SQNQW5695-86-08 10:32:52557Kueqqpuf TkcogupWAOXVZRTLG1664-21-37 10:32:007.5[facility] OVWODCBHIE0769-12-18 10:32:25178Vjvulblm YcefwyeUPAKWJZNTD9390-46-29 10:32:00 33.7[facility] BvplefcZHPUIZIYXB8834-23-36 10:32:0013.9[facility]annHEMATOLOGY 2014-08-02 10:32:0091.9[facility] EnapmxnDYZWNJQORR0325-83-57 10:32:00* Test Item Value Reference Range Interpretation Comments MCH (test code = MCH) 30.9 pg 27.0-31.0 [facility] JqmffixNOBDGLPQGQ5606-87-31 10:32:008.4[facility]annHEMATOLOGY 2014-08-02 10:32:0025.0[facility] XwgtonyRVIZNDTFPL5995-72-78 10:32:002.72[facility] FmihejzDGTXXIRRLJ6239-57-77 10:32:005.5[facility] FcdgsnyQURYUEEFHG8120-58-37 10:32:009.0[facility] WtoafqaMLEBXXLYKZ0739-33-98 10:32:004.3[facility] JVZNFGDVTZ5804-57-92 10:32:000.4[facility] ThubcftMBLABOSDRC5598-62-02 10:32:00 54.9[facility] VhshiwiEPJSLGSCFL6224-11-28 10:32:0031.4[facility]annHEMATOLOGY 2014-08-02 10:32:001.7[facility] XhxwwpnGRMLKAEGAY8779-85-12 10:32:003.0[facility] OialeobBVOTFTGQBL0315-69-62 10:32:000.5[facility] WnvphejNRUYWGMESK4344-28-47 10:32:000.2[facility] ApdxhpyRXUHVJPNOP5458-37-78 10:32:0063[facility] HSNGEDKEWV4332-09-65 10:32:00Negative *NA*(08/02/14 5:32 AM)[facility] FOHKYVDYCR2623-63-93 10:32:006.1[facility]BL[facility] BANK GCOTDOQ3270-43-03 19:03:00Product available 2(08/01/14 2:03 PM)[facility] RESULTS 2014-08-01 13:46:00Positive 1(08/01/14 8:46 AM)[facility] RES[facility] 2014-08-01 12:36:00Product available 3(08/01/14 7:36 AM)[facility] HermannCARDIAC PXILINU6991-77-66 11:39:001.0[facility]annCARDIAC VNBRWBJ3498-15-88 11:39:00< 0.02[facility]annCHEM ZPBAT9359-51-84 11:39:002.2[facility] HermannELECTROLYTES 2014-08-01 11:39:0015.5[facility] ExdlidnOSSSGFFVOMAF6173-85-48 11:39:009[facility] BxcztvpDHSFJVHWOXTB4159-40-68 11:39:004.1[facility] McnaskjMVHHVWILQRYM9530-59-79 11:39:000.9[facility] TutwgcfIQHNOSAJQAFS5347-44-85 11:39:006[facility] SDDGWCQNKIAE0718-96-60 11:39:41129Nncvkqxk FgcljwmAFYGWLYIWANO8084-28-94 11:39:000.4[facility] BunfyumXWFOBHQSMWTU2273-31-79 11:39:003.7[facility] DGVJCRSQQAPY1664-43-10 11:39:0036[facility] WrtxqinPIRXBJFSJLZK0627-29-35 11:39:00 29[facility] GswkwztRJGHIGQLGOCT2610-69-43 11:39:007.8[facility] HermannELECTROLYTES 2014-08-01 11:39:0029[facility] DufsjhcAHHVKXDAVEZZ8994-49-85 11:39:007.8[facility] CaiimytQPIOLPWPGFBB4688-29-73 11:39:006.8[facility] QugibirBUZYNNMWUIBK0539-90-61 11:39:67985Cgqdimsj PxrtqwjRBKXFKSTEAZJ5870-31-06 11:39:22771Vyanajxc [place] RKRZKDRHMHLA1864-09-51 11:39:0058[facility] BrdjucrXKTAMSAHKVGE7035-33-64 11:39:00 4.5[facility] AqslwiaTNLDJXXELEKK4289-32-36 11:39:0098[facility]annHEMATOLOGY 2014-08-01 11:39:00* Test Item Value Reference Range Interpretation Comments PTT (test code = PTT) 38.1 s 22.9-35.8 [facility] CgjpnduDLMOGQINZY9429-28-06 11:39:00* Test Item Value Reference Range Interpretation Comments PT (test code = PT) 13.1 s 12.0-14.7 [facility] FeglonrIBQPCSDKWA4580-16-31 11:39:000.99[facility]annHEMATOLOGY 2014-08-01 11:39:14404Zfwnekwd EizmcrjCEHDVRPTMG4312-11-52 11:39:0013.3[facility] CtefmrwLYOCEQSWHK6065-02-55 11:39:007.4[facility] OoarprnBWMFXHWRHE0915-88-84 11:39:0033.7[facility] FsatrhwZCFSBAUDND9282-66-07 11:39:00* Test Item Value Reference Range Interpretation Comments MCH (test code = MCH) 31.0 pg 27.0-31.0 [facility] EkggkldPZZJKSABKT8761-31-14 11:39:006.2[facility] HermannHEMATOLOGY 2014-08-01 11:39:007.6[facility] EukswbmWXNVEVFFLL2646-58-75 11:39:002.46[facility] IqfawzgYVRDTMZTWS2965-65-17 11:39:0022.6[facility] NixsprmWGCTGNAUNU7879-90-51 11:39:0091.9[facility] TlsitwtTYNZFLHNMA7668-75-46 11:39:000.3[facility] ALETDLJICE5012-13-14 11:39:0025.3[facility] InyqzsiCQQUEMGHVW7700-96-78 11:39:00 8.1[facility] HprexwcXXYBUVOAPJ8430-63-16 11:39:004.5[facility] HermannHEMATOLOGY 2014-08-01 11:39:000.4[facility] OflmbvwWWFQYYRPDZ2988-73-24 11:39:003.8[facility] SljdbzaCEDVMVWLLD7125-66-67 11:39:001.6[facility] MzgozsaWLGYYLKVRY2836-64-20 11:39:000.5[facility] PlnoqhaSCJGHGYZZV7947-57-41 11:39:0061.7[facility] BEDSIDE GLUCOSE PBHPFME2667-36-35 20:57:16612Sbntircq PisjtwnYXVKBBKIO9361-67-17 16:00:0014.1[facility] ObfcvrbWSTDCYXLD7261-00-29 16:00:0010[facility] ITRRQCAQS9713-57-86 16:00:008.2[facility] XjuonxqYKTTMGMPT5799-37-58 16:00:0027 [facility] GndifdpGBFROGIFS8604-74-20 16:00:004.7[facility] HermannCHEMISTRY 2013-11-29 16:00:0035[facility] JgngqmmRZKYYMJHY6686-15-30 16:00:0082[facility] RknbhvbADOVINWBK3426-70-38 16:00:08021Gafxiggi PlsuhlkXANQYRQYE2745-43-71 16:00:005.1[facility] NzwosxwSDEYJAAKJ3532-34-46 16:00:13263Ykefrukm [place] FYLTLZFNWS7043-26-61 16:00:000.0[facility] XxhjtufWUTQAHYIBL7573-19-11 16:00:000.5 [facility] GkoggxfLEPBVBFBMY9650-37-39 16:00:000.2[facility]annHEMATOLOGY 2013-11-29 16:00:001.2[facility] WvxtlfeKFPIKHSBSQ8302-40-55 16:00:002.9[facility] IgsmbyeXLFRHOEALE1572-73-47 16:00:004.9[facility] OdjmmyjQNTBOZBLBX1070-99-34 16:00:009.4[facility] HdypzbfHYJVJLZUSH8162-18-19 16:00:000.3[facility] KMDRBGVFHB2054-75-82 16:00:0025.3[facility] XygxytxYVAOWSOACP7455-80-10 16:00:00 60.1[facility] EsscdqxWIHTGVGMYY4143-90-77 16:00:007.0[facility]annHEMATOLOGY 2013-11-29 16:00:44990Lieeppsg HsdfcehOPVHTWLBJO9183-10-20 16:00:0093.1[facility] BdxmduoJXBLBZCOSD5288-80-58 16:00:0023.6[facility] EaldbfdMWCIDYVEKT1123-39-47 16:00:0033.0[facility] GeayuilIVWZJHFVSX7597-82-42 16:00:00* Test Item Value Reference Range Interpretation Comments MCH (test code = MCH) 30.8 pg 27.0-31.0 N [facility] HrvzibmDMVQHYUIGX5784-74-60 16:00:0014.1[facility]annHEMATOLOGY 2013-11-29 16:00:004.8[facility] MpvtksiKDOCHCLWEG8448-97-75 16:00:007.8[facility] CoijjxbVCOBZNEHDF6656-24-20 16:00:002.54[facility] HermannBEDSIDE GLUCOSE TESTING 2013-11-29 13:57:0065[facility] HermannBEDSIDE GLUCOSE SCXRYVX5124-64-15 11:55:00 73[facility] GqmovicUOMAQYDOH7265-27-96 11:00:0016.7[facility] HermannCHEMISTRY 2013-11-27 11:00:006[facility] OnyjmfgRAXMPITEV4258-35-24 11:00:003.6[facility] ObknobkUKQBXHSWX8549-18-07 11:00:000.7[facility] NcwdxzxUIMMUHOUZ7134-20-01 11:00:008.2[facility] RpvmjubUCYSSFIUJ0906-96-31 11:00:97144Ygxadcxn [place] CTEXCEADB7707-55-61 11:00:23146Htxwsblt MsglmlaFACANMTXL9055-84-02 11:00:004.7 [facility] RilecgvTMWFFBMLT7110-45-96 11:00:009[facility] KkjiantARYUIHBNC7632-18-45 11:00:0018[facility] TuvphfxIBJBMLBGD6506-51-82 11:00:0017[facility] NLVWBKCLW4209-11-24 11:00:000.7[facility] LaadncvVVSMLJDZH9144-93-54 11:00:68690 [facility] BhpshuiDRAKITHDC1122-23-99 11:00:005.4[facility] HermannCHEMISTRY 2013-11-27 11:00:006.0[facility] DyujdnaXACXUEKPP8517-24-79 11:00:0021[facility] UvrqumtTWKHCGYER4650-26-27 11:00:002.4[facility] BcuxpqgAKSBBAHVV2146-37-03 11:00:34823Nxbzrwcm TqinuyqDRTRAAQVB5021-74-24 11:00:0030[facility] VWJKVYDBBZ0520-12-87 11:00:0026.9[facility] QfnjmxhQMRVNNKVPX7081-87-26 11:00:00 93.3[facility] KdoqaceOHZBYIKZPN6761-01-95 11:00:00* Test Item Value Reference Range Interpretation Comments MCH (test code = MCH) 30.7 pg 27.0-31.0 N [facility] BmgkuzxDXXDJLKXYI8078-82-07 11:00:002.89[facility]annHEMATOLOGY 2013-11-27 11:00:008.9[facility] VihtdscSXMPTQPIZU7468-29-06 11:00:005.4[facility] GzpalhhFRHDNERPCV7860-83-99 11:00:69500Qrhlgqqd IsineriCSGTCZIQPG2346-27-45 11:00:006.7[facility] JhaanmoUBTXLHSNDY0364-87-87 11:00:0014.2[facility] CNLXILGGIW0312-22-44 11:00:0032.9[facility] NnprppwDKQYOMZRED0679-75-89 11:00:00 0.3[facility] WmwerabGHUETEAORZ4144-57-36 11:00:004.3[facility]annHEMATOLOGY 2013-11-27 11:00:000.6[facility] GrjzxopXDTQBWPIBV8153-79-24 11:00:000.2[facility] XqgpiioUKFLVHUFZZ3637-77-03 11:00:002.3[facility] PtfqfzyFJIECXLGNT1471-36-08 11:00:000.1[facility] ZjytiycIBTYDORVMD8255-88-89 11:00:000.0[facility] VEVJEBDDHW7460-13-89 11:00:0011.2[facility] OaxzljzYNQRNJCBJY9698-38-94 11:00:00 5.7[facility] SncxqtvZEJBMLIBAA8708-35-32 11:00:00Normal (11/27/2013 05:00:00) [facility] McarzyrNPSCUZWIOU8943-53-94 11:00:00Normal (11/27/2013 05:00:00) [facility] RkqyfmdWXOQPJXFKU3786-47-51 11:00:0080.6[facility] HermannCHEMISTRY 2013-11-26 22:55:1231.1[facility] QwecojdBPYXVCMTY5831-55-29 22:25:2127.7[facility] NdtgizhSGSRVFACB6415-37-72 21:43:087.2[facility] VtkpdepBZLVDHPWS5316-34-42 11:00:0086[facility] FxiaewqPNWMVVHTS0662-89-28 11:00:509317Ssylkdya [place] SKMGJABYJ2170-84-80 11:00:0024[facility] HyoibulKDSGHGFQQ9171-37-89 11:00:0079 [facility] QmvbfurYNPPZBLUD4741-67-13 11:00:01092Kufjgqek HermannCHEMISTRY 2013-11-25 11:00:0025[facility] ItzeizqXEWBVVWDI6179-05-47 11:00:46887Ypkqvwwi XbqsbjiDIFNWNBPH5135-43-82 11:00:004.2[facility] GqorwiuJPUCABAHS3064-23-48 11:00:82586Wwucozfe LqhutwjUJWMCYJCU1044-66-12 11:00:0019[facility] TJWKJKESF1845-21-56 11:00:0016.2[facility] CddtzjhZTPQLMLEV7162-82-54 11:00:0028 [facility] QlvhlidVXZFRWYBT8888-16-97 11:00:002.8[facility] HermannCHEMISTRY 2013-11-25 11:00:0014[facility] XcmaikvCATLCCQFS1756-38-59 11:00:0064[facility] EqztuayDAZMQTNZY7876-10-92 11:00:007.2[facility] GdwjdghYHNQWEGLVH0793-76-23 11:00:0013.7[facility] RskpgcbZTJKHQKPCZ5766-47-02 11:00:46751Mhxhtjdc [place] ZMEVFILAKY6832-64-11 11:00:0033.7[facility] JzabssvXPUPJIWGEX1657-34-34 11:00:00 92.5[facility] JbyuquvVMQOITXNHG9307-14-72 11:00:00* Test Item Value Reference Range Interpretation Comments MCH (test code = MCH) 31.1 pg 27.0-31.0 H [facility] BdbnnxtKPDYAWCFCW0632-54-20 11:00:007.6[facility]annHEMATOLOGY 2013-11-25 11:00:0022.4[facility] GnythwnAXMSWIWMBV3670-76-91 11:00:002.43[facility] XqsozvxNLCOAYNWFJ8388-10-99 11:00:003.6[facility] WovujkxVAMRKKFCGY5269-16-93 11:00:007.5[facility] OdyxhczKKLYFDKJFN7729-78-97 11:00:000.0[facility] WURPMXBUQS1205-10-48 11:00:000.5[facility] SifguabKRLAXDMKQC8987-26-50 11:00:000.1 [facility] WohpwnlZLQRGVNHKB9331-79-59 11:00:001.0[facility]annHEMATOLOGY 2013-11-25 11:00:002.0[facility] WbwxsksQXOKJZJANT8539-14-66 11:00:004.1[facility] PlyceuvAXAHUHAVTV7774-22-75 11:00:000.3[facility] NzmmeesXCQNEENWFQ6830-57-63 11:00:0012.7[facility] InysloeGJGZKMAMRT7892-09-72 11:00:0027.2[facility] LMIXKKDUWM6172-84-37 11:00:0055.7[facility] FrguhgnYLHMPMJAQ8795-29-05 11:30:00 0.680[facility] PvotqdxLISXQDHXE9752-50-42 11:30:008[facility]annCHEMISTRY 2013-11-24 11:30:000.7[facility] MrkcfpoPXXSVSWKF2418-44-79 11:30:0016[facility] AsoceulYXFBJXQHB8048-62-23 11:30:02631Wieveqax UwewlgpOAVPFFVUS2396-11-97 11:30:000.7[facility] HagahpeWANMQLHVN7313-23-06 11:30:006[facility] ROEOGZSEK5560-18-70 11:30:005.3[facility] OgyvbxcQMWLSEZMB6996-79-19 11:30:002.2 [facility] MeiixzgVDFAPYFYA1639-42-29 11:30:003.1[facility] HermannCHEMISTRY 2013-11-24 11:30:00<5[facility] OwqvdeeBGXELZOWR5561-11-25 11:30:0012.7[facility] NojqagdCHINQUFRFC8678-56-32 11:30:0070[facility] WqmlgrrBGUULKHSU1237-57-26 03:06:4831.6[facility] HermannINFECTIOUS YCFBGRDN2937-43-43 17:04:00Negative 1(11/23/2013 11:04:00) [facility] TwxyoqkZCMXXMSHX4156-89-29 15:03:000.4[facility] KwvatcfGNMBWKVYD2536-56-43 15:03:38478Iivtvvzu MuroeyjFPDCQVQJH9069-25-28 15:03:004.7[facility] FtfbcbjVNRACGDIK7638-67-64 15:03:0028[facility] [place] YNUIRORWD8526-33-06 15:03:0032[facility] ZgjsevzCLJENCKTS8777-84-48 15:03:002.0 [facility] AuztesxILJITMSIC9940-99-13 15:03:002.7[facility] HermannCHEMISTRY 2013-11-20 15:03:000.7[facility] YnowfblRCAHFNCLC6488-71-20 15:03:006[facility] SzmepghSEYGKCIMU4677-94-25 18:19:0032.0[facility] PhhroipBAEZJSERL6665-15-93 18:19:0031.4[facility] CmufveuOLUQEJEVO5172-62-17 18:19:007.14[facility] HYDWIBVWR7841-79-01 18:19:000.08[facility]annBLOOD BANK YRTQSEL6299-12-96 16:10:00Positive 5(11/17/2013 10:10:00) [facility]annBL[facility]OD BANK RESULTS 2013-11-17 15:22:00Product available 6(11/17/2013 09:22:00) [facility] MNQRNMAUR6184-30-09 18:49:004[facility] NeanouwAMGHQDALC1874-45-56 18:49:000.68 [facility] NzbkqvfHUDUNWIVS4458-94-90 15:47:1712[facility]annHEMATOLOGY 2013-11-15 15:47:00Normal (11/15/2013 09:47:00) [facility]annHEMATOLOGY 2013-11-15 15:47:00Normal (11/15/2013 09:47:00) [facility]annCHEMISTRY 2013-11-13 10:00:002.940[facility] NrbefvdFHNQHHHQK1046-14-26 12:15:003.1[facility] FdikgsbSLSUWFPYP1617-37-13 11:44:001.8[facility] SrsntjwROVLBIDUK7764-96-88 11:44:002.8[facility] NfvftakJTDGXBPRWH4151-45-96 06:50:29Negative *NA*(11/10/2013 00:50:29) [facility] WdowdflKYSKBEGDPX1472-32-89 06:50:00* Test Item Value Reference Range Interpretation Comments aPTT (test code = aPTT) 35.6 s 22.9-35.8 N [facility] RklnpeyVIGPRXTWRB7353-09-69 06:50:00* Test Item Value Reference Range Interpretation Comments PROTIME (test code = PROTIME) 13.1 s 12.0-14.7 N [facility]HdlxnozPNMITLTYAC7167-52-37 06:50:001.00[facility] HermannCHEMI[facility]Y 2013-09-20 16:56:002.7[facility]annBEDSIDE GLUCOSE MMXSAJZ8049-35-54 16:54:00 99[facility]annBEDSIDE GLUCOSE EFNQHWF2588-59-60 11:27:25793Rfctqtho [place] WVXTPSOLH6234-00-30 11:23:88800Fztegbrh CcgyybuQLJXIKAOU7069-54-39 11:23:40318 [facility] DclezitSVZCBIGPQ1472-13-82 11:23:003.5[facility]annCHEMISTRY 2013-08-10 11:23:0013.5[facility] MflfhgeSIIWMMUHN4059-03-55 11:23:007.9[facility] QelyftcXOOVIGGUQ5277-05-78 11:23:0029[facility] MhhwauqMUBRXBLJT0735-68-02 11:23:0011[facility] VwnkiquVOFAPYMZO3974-27-47 11:23:004.3[facility] KUBESHECQ7349-30-87 11:23:006[facility] RuievpuKLQWBQPQZ5410-64-25 11:23:41200 [facility] EamystvWEKJZOJOG8059-43-74 11:23:001.4[facility]annCHEMISTRY 2013-08-10 11:23:001.7[facility]annBEDSIDE GLUCOSE YZBVTYU0203-91-95 02:42:00 126[facility]annBEDSIDE GLUCOSE EOFSINK4576-39-82 02:09:0056[facility] CUMEAMVDF4269-72-46 11:04:001.7[facility] VfnswekNDGYWIZRU1187-01-38 11:04:001.7 [facility] ZzheapjRAQPUOULU6687-09-73 11:04:0014.2[facility]annCHEMISTRY 2013-08-09 11:04:007.5[facility] YiycyooKJFQRWXKA9690-09-63 11:04:0027[facility] FeihjocVTDQHWKCG3386-73-65 11:04:007[facility] YcskrseRVPZWEICD6190-90-44 11:04:00 14[facility] UnbakwfKKQNALWJZ7847-50-12 11:04:006.2[facility]annCHEMISTRY 2013-08-09 11:04:71403Mvqloknd UdpedmaHHPZJJXJU6759-54-74 11:04:85711Mghriazo CiysuqsGWVJIKZAV0949-67-84 11:04:003.2[facility] OedezhyFAYTQXGIS4219-66-50 11:04:61639Zvgyvaoe XyrmiqwBMOXELOLIL4180-12-33 11:04:95411Fmzifrwq [place] HPTMKRFUSJ0826-00-73 11:04:0016.0[facility] CnvhifjDWQOORFIDD1792-46-67 11:04:00 7.1[facility] KvuilylEHAWJCWEKS9851-51-46 11:04:005.3[facility]annHEMATOLOGY 2013-08-09 11:04:003.16[facility] YuzzvvuGIMILYYCNJ5600-45-48 11:04:009.5[facility] EkhqzxhEXVBYEBYSE9645-37-63 11:04:0092.8[facility] HfyahbnNRTSDBEBEN6506-39-79 11:04:0029.3[facility] QqfshsrXAKVHXEQUS0014-52-19 11:04:0032.5[facility] MZVVVYZHVE8591-58-09 11:04:00* Test Item Value Reference Range Interpretation Comments MCH (test code = MCH) 30.1 pg 27.0-31.0 N [facility] AjpfwvlANGUHDOWYO9430-02-11 11:04:001.4[facility]annHEMATOLOGY 2013-08-09 11:04:0061.0[facility] CqlcctcSXYZQUGWMD3824-86-47 11:04:003.2[facility] MeplrqaVNFVZXVUXV2750-82-88 11:04:000.4[facility] JaysyfcHDWIKAPIMY4579-42-74 11:04:003.3[facility] SfiqypcIEEDUZFWXU2818-00-02 11:04:000.5[facility] WVBAMVPUPH9234-42-54 11:04:000.0[facility] PakvynyUIZPZLFZWP2012-94-42 11:04:000.2 [facility] GwyzlanQNJAOHVVFE1079-19-41 11:04:0026.3[facility]annHEMATOLOGY 2013-08-09 11:04:009.1[facility] QdcrlqzIGCZTTZEJ8880-88-10 19:56:009[facility] LuvkwsbQZJYKRAQD2627-86-48 19:56:0012[facility] XimkktoVQJUUJADY8528-05-80 19:56:005.3[facility] SnrdawoMLLJNXIOC2596-81-45 19:56:0028[facility] VZHFZMTEH0782-59-79 19:56:31173Gnqtesdh XkygsltZVBHSPJMW2525-11-40 19:56:0015.8 [facility] JcnfihwKTEHMEEGJ3329-16-60 19:56:008.3[facility]annCHEMISTRY 2013-08-08 19:56:16036Pqvvgjom CspyncjITUEWVWAX3789-86-36 19:56:15117Iutehxcn JikusxnUPKCGMSVU2848-32-73 19:56:003.8[facility] HermannSTOOL CNKNM2747-57-49 01:35:00None Seen 5(08/07/2013 20:35:00) [facility] PsjkknvRZZAEDLRC9586-92-77 16:31:0072[facility] RrmgpbnAOEYHQDAQI2592-43-98 09:32:09Negative *NA*(08/07/2013 04:32:09) [facility] PqtxszlZWVDDCPJJ3004-48-13 09:32:003.3[facility] FULVNXVOAA0737-12-66 09:32:001.3[facility] RypgneyBOOEKXFBDY7733-83-96 09:32:000.6 [facility] KqvnycjZFGLPQNKIQ7889-00-29 09:32:000.1[facility]annHEMATOLOGY 2013-08-07 09:32:000.0[facility] AysbzefYMNINUPWUG1289-13-43 09:32:005.2[facility] LhzurdjFZQACJLOVK7803-00-39 09:32:001.8[facility] QudzoikLBOHFDBGJV2866-91-56 09:32:000.2[facility] LzrzqqxITHIWRTLKG9623-48-90 09:32:0018.1[facility] RNDRNURZCN6084-24-33 09:32:008.1[facility] RkkcbkxHHFRIVTXJK6345-41-59 09:32:00 71.8[facility] GijajonJSZUQJKVET3754-57-74 09:32:006.7[facility] HermannHEMATOLOGY 2013-08-07 09:32:37569Rtoprtaw EvyuxbjHZLOVCLRFT7227-82-11 09:32:0032.5[facility] ZpflpreFHIHWZEQDJ0136-96-71 09:32:0015.8[facility] XzrwwrvPCVFLTPKME5199-91-57 09:32:0093.6[facility] MjdyetyZAVVZWAZBJ6248-26-99 09:32:00* Test Item Value Reference Range Interpretation Comments MCH (test code = MCH) 30.4 pg 27.0-31.0 N [facility] ZcuomgqBXIMAJYOLK7675-52-24 09:32:0029.7[facility] HermannHEMATOLOGY 2013-08-07 09:32:003.17[facility] TirmjruZVIFFTZJKG9410-60-17 09:32:009.6[facility] KplxmvaYCRWUXAKBT1962 09:32:007.2[facility] ExjnalfDKEFMLRRR3507-01-97 10:44:0020[facility] DjkfcqkRTWWLVGZO7950-38-10 10:44:001.0[facility] GGUWCGTCT6321-82-11 10:44:000.4[facility] MhqeswiTWCKLUQPD9745-24-80 10:44:78111 [facility] NazguogKGSILRKVT1027-27-11 10:44:0033[facility] HermannCHEMISTRY 2013-08-06 10:44:006.0[facility] ApfbvcaJPVKKZFTK6779-84-45 10:44:004[facility] HqybzgmAODDGJDHW5289-37-31 10:44:003.0[facility] JxorrgkDONIAFCTQ7678-29-59 10:44:003.0[facility] OroeschOYAWJEJTUH2912-67-00 10:44:0054.8[facility] XJDWYANEKG6510-71-78 10:44:0032.2[facility] MyzgbypMGJVOSDEZU1164-65-81 10:44:00 0.5[facility] ThgalpgOUMJVBFMUP3630-60-79 10:44:0010.9[facility] HermannHEMATOLOGY 2013-08-06 10:44:001.6[facility] FqfpynqJCVYMDGPOX4485-67-48 10:44:000.1[facility] QzcdxgwXDTOQFPUVT1942-73-55 10:44:001.8[facility] AodthdsFIFOWTAHWW0946-18-91 10:44:000.6[facility] EqhhagyOLMOEYHWWD3326-32-96 10:44:003.0[facility] IBWZQMSIRB2711-08-53 10:44:000.0[facility] FbzqjsxNOXCRDPAYW8669-83-47 10:44:00 32.8[facility] IdpffyoHRWSHYCEPT9009-20-70 10:44:00* Test Item Value Reference Range Interpretation Comments MCH (test code = MCH) 30.6 pg 27.0-31.0 N [facility] WnrnyqkTYFJCJVLMY0236-89-06 10:44:0016.0[facility] HermannHEMATOLOGY 2013-08-06 10:44:006.8[facility] AbefraoNXJDPPKKQX3204-14-12 10:44:92973Chjyysrp XxdpqmxIXEDRPPSKY6770-57-75 10:44:005.5[facility] QguwsgiPWLHGZVZTU5476-61-87 10:44:0029.4[facility] OzuewoaHWHLWXXIMG7502-70-22 10:44:0093.2[facility] YJACUVFXOY8296-83-74 10:44:003.15[facility] BrmnpwuLTQYZWJPAK5290-62-15 10:44:00 9.6[facility] PkouziaCHGZWHCZDA4088-83-80 10:44:00* Test Item Value Reference Range Interpretation Comments aPTT (test code = aPTT) 24.2 s 22.9-35.8 N [facility]FtuqmhdUONDGXSDVD4662-88-77 10:44:00* Test Item Value Reference Range Interpretation Comments PROTIME (test code = PROTIME) 14.2 s 12.0-14.7 N [facility] ZukkqmuQCYATYBBSH4102-31-91 10:44:001.11[facility] HermannINFECTIOUS EAFGPGEL6844-46-42 02:00:00Negative 1(08/05/2013 21:00:00) [facility] STOOL OZPUQ2517-79-15 02:00:00Negative (08/05/2013 21:00:00) [facility] KHAVTDKKS0182-83-20 12:50:003[facility] FenxtrqMPTJOEEEF8780-12-65 12:50:000.9 [facility] XxfusrkLURBQUWHR0691-17-43 12:50:003.7[facility] HermannCHEMISTRY 2013-08-05 12:50:0046[facility] DhsywwtCPYLEJZBZ4002-62-42 12:50:003.5[facility] ZigwazgJHAZQDAHS2325-71-39 12:50:007.2[facility] MevapzlDFEDOFBBI6976-19-56 12:50:78968Iztfxwlw DstzsrqTPLSCCSTR0926-07-30 12:50:000.5[facility] GWDIZZYSL4946-86-55 12:50:0031[facility] YxamqjcIPTGCLOEG0248-23-79 12:50:001.8 [facility] MvjfdciNIJBXQQYJ6323-31-27 12:50:00Negative *NA*(08/05/2013 07:50:00) [facility] KxwwentBDHSFWBICI8512-72-21 12:50:001.00[facility] HermannHEMATOLOGY 2013-08-05 12:50:00* Test Item Value Reference Range Interpretation Comments aPTT (test code = aPTT) 31.6 s 22.9-35.8 N [facility] RblokhoZJYCCMIMYY8460-75-30 12:50:00* Test Item Value Reference Range Interpretation Comments PROTIME (test code = PROTIME) 13.1 s 12.0-14.7 N [facility] SwjpyrrINQUXSRJP1168-30-32 20:40:82953Vqusigdc HermannCHEMISTRY 2013-08-03 20:40:003.4[facility] TdmvwbqYXRKRCKEK5959-49-73 20:40:85802Vkltvfyv PlzftyuPHXINJRZE9373-43-34 20:40:009[facility] GewfseaCXHOAEFLP6108-51-48 20:40:00 159[facility] FsugpdyRKEUICKNJ7362-61-05 20:40:0039[facility]annCHEMISTRY 2013-08-03 20:40:008.9[facility] WtzrtxxUBZOFBSCM3473-35-31 20:40:003.6[facility] QfnfcbpMLYVULALK3580-17-62 20:40:007.6[facility] MkfrlslNCEUFAJYV8112-29-88 20:40:000.5[facility] SetwiozAZCWWFNUU3669-30-40 20:40:002[facility] MGIGFZJLC6211-22-90 20:40:0013.4[facility] OhlsgatTHTGYQDBP2882-25-73 20:40:0028 [facility] ElazsjyLWHEEYBBU7907-67-27 20:40:004.0[facility] HermannCHEMISTRY 2013-08-03 20:40:000.9[facility] IuezkfjSXKCJBDVL4033-36-01 20:40:005.4[facility] PqiuaheZCQARUNWK3849-27-25 20:40:0012[facility] DksqxohTOYDFHHEO4854-54-03 20:40:0028[facility] KbujiwtMUGIJBKRN1456-30-40 20:40:0057[facility] PBZZXOLIP6802-89-03 20:40:86987Fvryuirj PavjxonQHVGBQUAQ6462-45-92 20:40:0031 [facility] HfltxpmVMIERRXWH0280-74-64 20:40:00<0.02[facility] HermannCHEMISTRY 2013-08-03 20:40:000.6[facility] JfhlgmdWLNXRBKFT6654-51-12 20:40:001.9[facility] DaxtpxqHDYGDPFZWT7027-35-31 20:40:0011.5[facility] OnvwocmDMSTPPKRGC1767-66-77 20:40:003.82[facility] ShxvollGEJYPJEIHH9382-02-01 20:40:007.3[facility] OUORXVZLYS9730-06-99 20:40:006.7[facility] VupspkiFFHMNIPQCB8678-39-94 20:40:12673 [facility] YxumhwcRLSPDBPSJD6625-80-16 20:40:0093.8[facility] HermannHEMATOLOGY 2013-08-03 20:40:0035.8[facility] SkhjpbdMLKHJNEZEE8914-90-26 20:40:0015.7[facility] KrjgogfISKFDEYMLS5413-57-18 20:40:0032.2[facility] FggoljnEUXMZTWZEW3786-40-53 20:40:00* Test Item Value Reference Range Interpretation Comments MCH (test code = MCH) 30.2 pg 27.0-31.0 N [facility] NftljxkJSRQKLBJCQ3291-97-18 20:40:009.3[facility] HermannHEMATOLOGY 2013-08-03 20:40:000.5[facility] HaezgnsIQTYRLGDLU4942-96-69 20:40:000.4[facility] GjyfridDJLICWDZFV8798-96-30 20:40:0072.4[facility] GhztnddDOZFRZXIPJ9610-47-95 20:40:0017.4[facility] PdnepamTPJQKXNZCT6457-86-02 20:40:000.7[facility] VTIMMIYWDB3792-11-96 20:40:000.0[facility] AfjxksyJLBFAWCMBO7600-50-53 20:40:000.0 [facility] FbkqjftYRXIEOHYUI3467-22-71 20:40:005.3[facility] HermannHEMATOLOGY 2013-08-03 20:40:001.3[facility] HermannBEDSIDE GLUCOSE QGIFMYS1962 15:57:00 186[facility] HermannBEDSIDE GLUCOSE PUDOIDZ1543-21-53 10:38:0093[facility] BEDSIDE GLUCOSE RRZHTIA6034-49-71 01:34:21628Gwvxvuwg WdrjemrJESWFJQTL1444-57-14 11:21:007[facility] SbduxseFGECICZTH2454-05-35 11:21:007.7[facility] DVUJMGUQM2397-92-52 11:21:0059[facility] QjijabwDCRTIIGUA5429-57-31 11:21:006.1 [facility] AndtoluYILTOZSCS2271-61-59 11:21:0014[facility] HermannCHEMISTRY 2013-07-28 11:21:0014.7[facility] UvtqgdkXKSLHCDFW9258-44-76 11:21:0028[facility] HdywcpgLTIEJHLFY6295-71-59 11:21:33710Klrsaqkq PcuzjvdGZFHVXKNU7919-37-18 11:21:003.7[facility] WcntzroYONRRNHFL3117-12-74 11:21:04570Qekbbbrt [facility] MIDOVVXZT8820-21-29 11:21:55650Mdhfpnls HmaxaxuACKJZTBLG7609-22-54 11:21:0055 [facility] HnosqqdPPDUWBHXE1202-31-65 11:21:50206Ckzoaokk HermannCHEMISTRY 2013-07-28 11:21:96969Epabzfpc GpbepmmHCRDDMDMM0024-99-42 11:21:0040[facility] SwuztpfEHYIDXIHC0938-33-08 11:21:003.80[facility] TfprqpuOWELRCKKAA6710-77-34 11:21:006.9[facility] OhqjyrbATEQGXRLZH9108-33-21 11:21:64554Twbzqyzm [facility] POHSVPKHIG2872-27-05 11:21:0015.2[facility] JoqplppGRCJDFTHVB8517-52-62 11:21:00 32.4[facility] TlsgxqgYCHHFLMXXW8628-69-38 11:21:00* Test Item Value Reference Range Interpretation Comments MCH (test code = MCH) 30.3 pg 27.0-31.0 N [facility] OnssfcoREBVJLCPWT3396-81-14 11:21:0093.7[facility] HermannHEMATOLOGY 2013-07-28 11:21:009.4[facility] MekhjdqJCGGKDAHOK9628-15-19 11:21:0029.0[facility] NowmmtwDQCPTULPUT7881-63-26 11:21:003.09[facility] OedljjmEHRWXPHMEC0538-99-67 11:21:006.0[facility] KdschzbQRYMEGWXCV0354-33-14 11:21:000.3[facility] NTUCXZYCVF6468-86-78 11:21:000.0[facility] CapxpkqVKLXPPZTXA9406-64-54 11:21:000.6 [facility] DvsifycMWWDFYXQFO9116-84-27 11:21:0034.3[facility] HermannHEMATOLOGY 2013-07-28 11:21:009.5[facility] UzqdwelZVRYTGRIGU2756-79-35 11:21:002.0[facility] DvhwozoJXMGYFOTRG4242-83-92 11:21:000.5[facility] OjnqjtfKVJORSKWBS5471-16-19 11:21:003.0[facility] XadccpsGHOHTBNLNF7205-60-24 11:21:005.0[facility] ROGSOEOYWZ7459-34-30 11:21:0050.7[facility] QqagxhoTRLCHPVZX0918-42-37 12:36:89257 [facility] UelnnkxYBZLAQOLD7302-64-41 12:36:10202Rzwquemh HermannCHEMISTRY 2013-07-27 12:36:003.6[facility] QfriqmpABDOMDSSH4308-99-35 12:36:71680Tkppsymu CcerycwIFVZYLSQD4741-81-63 12:36:0011[facility] AkigzpgYISKTCPSJ7106-11-55 12:36:004.3[facility] XbmuyfhMPUBDOSDU3204-21-83 12:36:008.0[facility] MODUYKUKQ2947-01-17 12:36:0028[facility] AsuneqnDFEQQWREO2511-72-92 12:36:0014.6 [facility] XepqsdbMACUGXFQJ0114-53-69 12:36:0069[facility] HermannCHEMISTRY 2013-07-27 12:36:009[facility] HermannINFECTIOUS JKDEFJCY3493-28-63 22:28:33 Negative 1(07/26/2013 17:28:33) [facility] LdxvczjTGBBIMWDJ7757-18-46 10:21:007.0 [facility] KwraltcACLILFPUL0230-88-34 10:21:007[facility] TyrxfbbVYFVGTGZY6082-50-47 10:21:0017.2[facility] ReooqdhQUKFZSOVL7783-09-80 10:21:0023[facility] WEWCHSLMJ3343-58-69 10:21:45716Eoahqibc WldoncdIYHXWAHPZ2624-21-33 10:21:003.2 [facility] XqiuapwZEQYERAOJ4355-06-40 10:21:78685Mzitqnki HermannCHEMISTRY 2013-07-26 10:21:006.0[facility] CpdqxkbZZVMJJQMF5745-04-99 10:21:0019[facility] QcylljjEFLCKBJUW8852-33-28 10:21:04532Ewfpwqvl EdvvoidJBIMCUIMUH2576-90-87 10:21:008.9[facility] ErzcqipFEOWNOODDE3297-59-68 10:21:0091.7[facility] ASGFDZUWNG5350-19-76 10:21:0027.5[facility] RkpundzSXRZWUOIEJ6663-55-24 10:21:00 32.2[facility] MxuprksLAJDQZUDLH6148-63-31 10:21:00* Test Item Value Reference Range Interpretation Comments MCH (test code = MCH) 29.5 pg 27.0-31.0 N [facility] WfwkglqSIMFKQWSAQ0646-11-04 10:21:0015.0[facility] HermannHEMATOLOGY 2013-07-26 10:21:006.7[facility] FbvwyiqUFZCUCLZGS0746-83-23 10:21:31798Eyoeljsu NzclfpmDTZLCUKPUY5063-34-45 10:21:003.00[facility] BhnfcjhKBHPCJMZVN9680-62-63 10:21:005.5[facility] PnxzbqoPUHGJFEIPS4420-25-09 10:21:0058.9[facility] JZYFYLMYQB3069-45-01 10:21:000.0[facility] CxaodfyBJSALRWFZR9077-12-85 10:21:000.2 [facility] FfnlkkbLZDDGNRXPX8999-21-91 10:21:000.6[facility] HermannHEMATOLOGY 2013-07-26 10:21:0026.7[facility] OhaunnuGJCLPJOBUX1613-19-12 10:21:0010.2[facility] OczgxaqGYWOKLGGLG9505-05-92 10:21:003.8[facility] UuoaicrPRTCBZLYSV9112-16-11 10:21:003.3[facility] VvptfmlJACLADHEQF2956-66-86 10:21:000.4[facility] BWSRATLDEE2836-73-73 10:21:001.5[facility] HibgodtJOXOBRVZG5449-33-46 10:35:17602 [facility] FklguuwQQZIWPWNA8661-41-13 10:35:006.12[facility] HermannCHEMISTRY 2013-07-25 10:35:0032[facility] RufgsfwPUWEXFTXF6448-31-10 10:35:74681Tddymezf DxzfgxmXODOUKABS0942-38-52 10:35:13379Pglvfvum UuanijfLXDTNTLLH6228-94-01 10:35:0083[facility] LlbmwpjDLFGVPTLT1282-10-91 10:35:002[facility] HermannCHEMISTRY 2013-07-25 10:35:006.9[facility] NjuebfuOIGSXCRYK9952-95-09 10:35:92172Houakxyh CekbngnJLYCRZKFR8330-60-18 10:35:003.3[facility] GokoungGHMGCMAVL9535-68-06 10:35:000.6[facility] YxcqdjyENPDIXTWJ5207-96-64 10:35:0047[facility] FZPATVYLC2870-80-32 10:35:003.6[facility] JfdqsmtISKJYZLVI2516-36-44 10:35:000.9 [facility] XlassadZENFVVZJFN2556-25-17 10:35:000.0[facility] HermannHEMATOLOGY 2013-07-25 10:35:000.2[facility] SgyrealYSPSGCMWRQ4707-41-49 10:35:000.8[facility] UqbaegrGPAOOKPPFZ4658-36-63 10:35:001.4[facility] IvzbpdePEYLVCXCPP7797-71-49 10:35:004.0[facility] GehkhfuCPUSHYNVMF2720-75-50 10:35:000.2[facility] WSCFZXYMZE1030-07-52 10:35:0012.5[facility] BrobchqZAOIBYRAGJ3614-57-21 10:35:00 21.2[facility] HyvapqhMIUDLYIFIN5820-03-99 10:35:0062.8[facility] HermannHEMATOLOGY 2013-07-25 10:35:003.3[facility] NlmuwnpOXGWFSXNLL4642-14-19 10:35:0015.4[facility] GluyzsuBLTKEUHINJ3409-59-99 10:35:49437Jurrurbx ZnxqbauATUDGURXNI7493-02-20 10:35:0092.2[facility] WarsefgDLHTFIFGBF7329-15-00 10:35:0032.4[facility] DXBEDUWNYO9775-03-08 10:35:00* Test Item Value Reference Range Interpretation Comments MCH (test code = MCH) 29.8 pg 27.0-31.0 N [facility] OdsamliGGQFGJEZVK7090-59-30 10:35:006.4[facility] HermannHEMATOLOGY 2013-07-25 10:35:0028.8[facility] RqormuiUHFGRVLMFU4721-62-74 10:35:009.3[facility] PhdiazuIBYTBRXMNG4358-83-55 10:35:003.13[facility] IvggfclDNFAXBHFSW1594-47-33 10:35:006.8[facility] VusqqrrMXQXTADEY6389-43-52 11:45:00<2.1[facility] BBVSMGIWS3669-09-97 11:45:000.4[facility] BgtaytwWEPTVJZDJ5467-69-41 11:45:0041 [facility] BudexidRCPHBMABR9437-95-08 11:45:19636Hrqvqgin HermannCHEMISTRY 2013-07-24 11:45:14780Oxotwslw ZpgvgrsYWJTRTIOD0764-94-28 11:45:003.4[facility] UhcacbcPVSQPZXMA5120-90-68 11:45:007.9[facility] BsajlcjWGQIJFQXD3533-69-55 11:45:000.8[facility] HunfxuyNRHWSRKBT6124-91-32 11:45:004[facility] EIHYZSSBD8256-89-50 11:45:004.5[facility] SvowbvkDKTUVIFWN5891-49-86 11:45:30179 [facility] VpnwbrjUMAKJHAVL6005-14-18 11:45:00<0.02[facility] HermannCHEMISTRY 2013-07-24 11:45:00<0.5[facility] TntzpnnCCNUBEEOT8743-04-30 11:45:0024[facility] MqldvtsMOKKGMFRJQ4583-86-12 11:45:00Normal (07/24/2013 06:45:00) [facility] WbripolYXFPSYNSSX8440-54-14 11:45:00Normal (07/24/2013 06:45:00) [facility] GygmojyVJJBUBWKMG5891-64-05 11:45:00Negative *NA*(07/24/2013 06:45:00) [facility] KimgefdCDHSMPCWG8642-87-53 13:48:002.2[facility] YibwplcYRMHNPSNZ1760-59-14 13:48:007.3[facility] VzyituuCGNOQRCTC1812-40-92 13:48:0022.7[facility] ZWGDUPAST1104-23-82 13:48:004[facility] StvhwwsJESQLSPJO8844-26-73 13:48:0020 [facility] XxsjduiDWTHDUUXT1547-18-68 13:48:008.2[facility] HermannCHEMISTRY 2013-07-03 13:48:004.7[facility] NjvbnihSWMIBWRWP8974-76-10 13:48:0098[facility] OzcgejyJMGPZTLGN4053-50-94 13:48:50770Inmhodoq DzfgtpmXUFLJGKQI4309-48-47 13:48:0065[facility] VjwurumHVXVTKIYN5082-75-08 13:48:0010.3[facility] RXVMSRUOP4480-74-17 13:48:82793Koyadqmk DhqzalcXXGRIQLJSG9038-01-31 13:48:007.3 [facility] OcgbpaxEXLPXDQQEX2322-79-82 13:48:96137Izdfjfjx HermannHEMATOLOGY 2013-07-03 13:48:00* Test Item Value Reference Range Interpretation Comments MCH (test code = MCH) 30.2 pg 27.0-31.0 N [facility] EfmsqvqFNQNQHMAWR7768-81-42 13:48:0032.5[facility] HermannHEMATOLOGY 2013-07-03 13:48:0093.1[facility] JmeoorbGSLXDGZPWY6224-84-92 13:48:0015.0[facility] OmbjpxuBGKPYOMKML6407-39-60 13:48:0033.2[facility] IniztcsDULKEADYNS3724-56-17 13:48:008.7[facility] EieviiyUNAFIUJZTK5678-81-34 13:48:0010.8[facility] FWVTQHAKKG9959-41-74 13:48:003.56[facility] JxkviseWQNETQBDWG5598-87-57 13:48:00 1.4[facility] SehrbfqYCGCLMLJQL5676-57-13 13:48:000.7[facility] HermannHEMATOLOGY 2013-07-03 13:48:006.4[facility] DrouwssZZGKNEMJYN2317-71-61 13:48:000.4[facility] LndnlqxUDGRTASLVD7469-22-32 13:48:000.2[facility] UuqhngfDRSVAIBBOF4601-50-03 13:48:002.1[facility] ZbweavkEXOIDISGOW2644-42-20 13:48:008.1[facility] DXVOYMINUR1817-26-59 13:48:0015.9[facility] OarrahfNFCOEEEPSV6592-73-46 13:48:00 73.5[facility] HermannBEDSIDE GLUCOSE AVPHLKB3922-02-87 02:29:93462Vsbozsag HermannBEDSIDE GLUCOSE FLIAKNC2217-21-08 21:54:47754Oyhndcnq HermannBEDSIDE GLUCOSE NZSNGLL1765-25-00 17:29:73688Ovrotxtb WwuyjzfICNHXAZDX6617-24-80 12:12:007.3[facility] SbbjsrfEJZXNHBKZ0543-47-61 12:12:0024.5[facility] NACEMPUVE4669-05-03 12:12:005[facility] SlfeffhCLBVYLJJL4419-87-20 12:12:0021 [facility] UzlobawCTNHTFCVV3385-55-13 12:12:0095[facility]annCHEMISTRY 2013-06-30 12:12:004.5[facility] NljwkycRGGDSJSER3890-37-15 12:12:83004Imjhwboz WipqfxlEOVGHAQSP1002-00-01 12:12:49045Iqliuynv AchuhakZRHCDEDFF6427-42-63 12:12:008.0[facility] UmcqwlbFBHEBLDGZ9507-44-31 12:12:0043[facility] EZXIPXAVG9688-09-53 12:12:008.9[facility] CaysgpuIBRXHFXCR6124-86-17 12:12:002.2 [facility] LqkwngvHRVQCJGDXI3518-64-87 12:12:009.4[facility]annHEMATOLOGY 2013-06-30 12:12:0016.7[facility] HdmvfmqWDTATDAVPM2265-29-48 12:12:005.7[facility] UqkimrbTMKYBBNTAH7656-46-80 12:12:001.4[facility] QomvyifCRDVBTLFFY7830-45-90 12:12:0069.4[facility] QbrgrhsCTYXVRJQEN2682-36-07 12:12:004.1[facility] CTFYXFIFGP1380-67-92 12:12:000.4[facility] CyvpmfxRVEXLUNPGN9906-27-82 12:12:000.3 [facility] QyefnawJPNWBZIMAZ4545-42-86 12:12:000.8[facility]annHEMATOLOGY 2013-06-30 12:12:007.5[facility] HfjtywoZIMBMBEMKU5246-49-73 12:12:0015.8[facility] IzclmcjKZSGHMEOUR4646-46-28 12:12:0032.5[facility] BgxpdbkZBOMSYMXZC7006-05-70 12:12:0032.2[facility] SiuguhaDLHOMWKUAL0500-72-03 12:12:0093.0[facility] TBVZYZATYT8899-72-60 12:12:003.46[facility] RhzrqzqRIJVMUIHTJ4947-01-81 12:12:00* Test Item Value Reference Range Interpretation Comments MCH (test code = MCH) 30.2 pg 27.0-31.0 N [facility] UajfgzjOMTAKMOLEQ5949-60-29 12:12:0010.5[facility] HermannHEMATOLOGY 2013-06-30 12:12:61664Ujmiamrp YkowcsaBXCYCICGDH1454-55-47 12:12:008.3[facility] YgftjumENRREUXCH2626-63-90 02:00:009[facility] MlcztdbDZLENQODH6857-77-56 02:00:00 96[facility] MnmtfjxQJWAEIHRQ0795-87-39 02:00:0024[facility] HermannCHEMISTRY 2013-06-29 02:00:004.5[facility] PexntejSQLKPVTJG4107-21-06 02:00:90062Embzsawd RwnofxrPEVCBOEYI4784-49-80 02:00:0017[facility] BtsezxaVYSGRUBOP7489-63-81 02:00:005.0[facility] NrjgjoyVJODZVSYG1551-30-01 02:00:10329Clabwnij [place] LMLAFTGEI2160-45-94 02:00:008.6[facility] CzlszpvWKKWWXFRG5614-60-73 02:00:0018.5 [facility] VhqktcmQUYRXKSYYP5661-54-24 02:00:003.43[facility]annHEMATOLOGY 2013-06-29 02:00:007.3[facility] VnmmhgqZHMCXIWFOD8619-95-28 02:00:007.5[facility] DnmtuegMSBTHMUHNF1225-11-69 02:00:0093.7[facility] GqdgilaOHOUQIXHAL1748-63-70 02:00:0015.6[facility] CwzspiiHSKUCVIJPY9658-27-01 02:00:56091Fbwxgitw [place] JPTRGIXQGP6614-84-22 02:00:0033.5[facility] YrnifadTKCUKIZSGM7520-70-03 02:00:00* Test Item Value Reference Range Interpretation Comments MCH (test code = MCH) 31.4 pg 27.0-31.0 H [facility] TkeiengTLHVGVDKXP3171-53-83 02:00:0010.8[facility] HermannHEMATOLOGY 2013-06-29 02:00:0032.1[facility] NpgemwmSXVVKEPEFX2913-46-76 02:00:0012.7[facility] IcvxrtbKNANJNJCJC0279-92-40 02:00:0075.7[facility] PtwteqsZALOWWFDKZ3466-85-15 02:00:000.5[facility] LbindueJWYIWYJSML5942-20-64 02:00:000.3[facility] QTEVCLKVNI8877-16-91 02:00:000.9[facility] DdkxpyhWOKMEEKLFN0256-86-49 02:00:004.5 [facility] XyzgqboNSXKNCQBHJ9762-95-80 02:00:005.6[facility] HermannHEMATOLOGY 2013-06-29 02:00:000.3[facility] GdkfytnAAYODHSRMA5634-76-49 02:00:006.8[facility] LxnpobrBJQOPEHWBX2579-36-25 02:00:00* Test Item Value Reference Range Interpretation Comments PTT (test code = PTT) 66.6 s 22.9-35.8 H [facility] ZljrjetWPAYTMINHM4221-21-65 02:00:00* Test Item Value Reference Range Interpretation Comments PT (test code = PT) 13.8 s 12.0-14.7 N [facility] LhryvzqDEKEWIHQFZ9640-91-55 02:00:001.07[facility] HermannCHEMISTRY 2013-06-28 16:27:006.3[facility] LmehvdrGUNAVAXAM2024-43-18 16:27:002.0[facility] BjshfaxSZQWNRRTHV0704-95-79 13:14:00Negative *NA*(06/23/2013 08:14:00) [facility] EhbrqjtSTRZDNWGMN0580-03-08 13:14:00Negative *NA*(06/23/2013 08:14:00) [facility] BtstvjaVSFREYAVRB7797-36-77 13:14:00<3.1[facility] LognejiVAZMJJMWPS4756-48-54 13:14:00Negative *NA*(06/23/2013 08:14:00) [facility] JotymeqYXHLCUYABS1298-15-05 13:14:00Negative *NA*(06/23/2013 08:14:00) [facility] ZunslseWTXUNBMNBR6814-44-90 06:54:001+ *ABN*(06/23/2013 01:54:00) [facility] SffxxnoLXKWGFPCOB5447-13-69 06:54:00Normal (06/23/2013 01:54:00) [facility] HdbxgdbLLOUHAVDB1893-12-34 12:50:005.7[facility]annBL[facility] B[facility] GPGTRRN3205-68-86 12:45:00Negative (06/22/2013 07:45:00) [facility] PswmisoZCOPSVXEW6699-46-91 18:45:0044[facility] IxuhyfcMQISBYRJU4553-97-94 18:45:007.9[facility] MqmgviqXAEBUIYVW6307-50-21 18:45:000.3[facility] IvxjprdWLOGPSPQR3305-10-08 18:45:003.7[facility] BMIJJMJOU0569-67-06 18:45:83041Lnbhhzpa EqeckwyHGGHRZCJL8704-32-50 18:45:0057 [facility] SmwspryQVYAGZZKG3495-50-78 18:45:004.2[facility] HermannCHEMISTRY 2013-06-13 18:45:009[facility] CrpjcbmWKGNZWIOI4942-80-09 18:45:000.9[facility] PjwjdceKYISEOTEK1502-07-95 16:23:005.2[facility] HermannBEDSIDE GLUCOSE TESTING 2013-02-23 16:22:50570Czzwdsxc SrbizmlJKMIMNIAJ0764-54-29 17:06:005.2[facility] VfrhkslTRUQUAINM4392-99-37 17:06:007[facility] PjfkmrmOXDIQOOXB7607-57-38 17:06:00 18.4[facility] SuphxonCMAMKCKKC6362-88-95 17:06:005.4[facility] HermannCHEMISTRY 2013-01-12 17:06:000.7[facility] EofiafeKODPTWDSR9305-30-81 17:06:007[facility] LnoyfhlRNDRASADD1733-31-83 17:06:0047[facility] TexqpneAGPQBCYOB2573-58-57 17:06:008.7[facility] BczgztpVTMVKQFTO5747-72-81 17:06:0025[facility] YWFKKJPHN6554-67-83 17:06:004.4[facility] IvgwbgtWNYIGBFKZ7339-46-61 17:06:0093 [facility] YvgwxxvMKTELTBBD8969-66-22 17:06:80581Nkxooeow HermannCHEMISTRY 2013-01-12 17:06:006.4[facility] AeacqxkHCEIVWLQX3814-51-38 17:06:003.6[facility] PlwejrvJIEGVHYUY1462-02-88 17:06:57003Vmzixjnm LhikiovLPJFEZILT3848-00-77 17:06:0041[facility] QzpkclsAJXIAGKNG2610-89-36 17:06:0069[facility] AFFSEKLHT6012-69-08 17:06:009.0[facility] QvdghalLOCQOPTCB6928-96-34 17:06:000.5 [facility] SuxcsmkXWKCKDYGE4621-92-80 17:06:68061Ttqtyszy HermannCHEMISTRY 2013-01-12 17:06:004[facility] JlesrbwTGWRQAGOH2574-86-98 17:06:002.3[facility] KloqqxrDUFPTHBXV5652-96-84 17:06:00<0.02[facility] XkyohpjOEPSWAQVH1425-16-77 17:06:0040[facility] JpwyvoqUUHTXZGTSX8230-42-37 17:06:002.96[facility] OQMXZIDYTJ4344-68-95 17:06:0095.2[facility] CgrgyufYWCCOWRLRC6270-78-17 17:06:00 28.2[facility] EmjxclzCUPOPZPYPZ1070-35-88 17:06:009.2[facility] HermannHEMATOLOGY 2013-01-12 17:06:0016.0[facility] JblvqliCRDNKBLKDO8480-95-19 17:06:0032.8[facility] KatrkqeDOVTCQYSSZ4251-18-46 17:06:007.3[facility] OcobwddKFHCIFAFML8170-10-31 17:06:96508Febtdzmn TbxyfdpNUKQNGLBRQ1706-11-26 17:06:0010.7[facility] KNBISXEMBK6706-72-03 17:06:00* Test Item Value Reference Range Interpretation Comments MCH (test code = MCH) 31.2 pg 27.0-31.0 H [facility] NbqwzxjGDFFNSSQVW5571-22-37 17:06:001.06[facility] HermannHEMATOLOGY 2013-01-12 17:06:00* Test Item Value Reference Range Interpretation Comments PTT (test code = PTT) 56.1 s 22.9-35.8 H [facility] TolwtuuJHHRYXKILW9403-75-00 17:06:00* Test Item Value Reference Range Interpretation Comments PT (test code = PT) 14.0 s 12.0-14.7 N [facility] GenzozgTJFISHLLVT3112-12-47 17:06:001.0[facility] HermannHEMATOLOGY 2013-01-12 17:06:0078.5[facility] YjuhwihSHQTCMSQHD6462-32-95 17:06:008.4[facility] CnuuixkROUWKOPTWK3072-55-82 17:06:001.2[facility] UruifyfLNNKHOHGCM1451-35-25 17:06:000.2[facility] ClectrnZOICGVYKPP6381-65-74 17:06:000.1[facility] LTCWVSFEGM5243-53-41 17:06:000.8[facility] DibeqtbERIYPWCIVN4829-21-44 17:06:009.2 [facility] FshtpjiVUEUAXPITX5514-62-05 17:06:0011.3[facility] HermannHEMATOLOGY 2013-01-12 17:06:000.0[facility] RfjeyjqIBLNRTNNP1949-94-91 19:40:008.9[facility] YpdwnesSSRSBEVBK4236-51-79 19:40:0055[facility] FbbrntjZSNQIZNDB2702-20-37 19:40:54200Hzcxsqvu TlvnzraCFBKBIGHN9908-10-12 19:40:0033[facility] GKKCKWZHL1906-12-91 19:40:000.3[facility] AhevuqfCFQWOWVZE9319-10-84 19:40:0014 [facility] QgnxnylHTPIBNDIC3579-68-96 19:40:0031[facility] HermannCHEMISTRY 2013-01-06 19:40:0031[facility] CqztfebYGFFCPVNR6680-20-00 19:40:003.5[facility] ThyyvqvIUWSHSQZG7232-60-38 19:40:86177Tskphbrl UbbffcwFXXRWCGYO4583-95-90 19:40:004.7[facility] GjnkovsQBQATZKZW8320-66-38 19:40:0092[facility] TSSVQOUCC1879-15-71 19:40:004.0[facility] PqritrrEJTRTMALV4857-20-32 19:40:009.5 [facility] MldadtwWBMVEHOET8591-05-91 19:40:25109Ffukvdrq HermannCHEMISTRY 2013-01-06 19:40:000.8[facility] IsipgwdTQWYAYSMU2896-42-67 19:40:004.9[facility] KcemvppOYCUCVRFQ5476-61-86 19:40:0015.7[facility] IziuxmpZGBTTPYPO4564-88-41 19:40:009[facility] PgtxtntKUTLLWTMVM4723-89-31 19:40:000.0[facility] CPCEUJRLAD0274-73-34 19:40:00Normal (01/06/2013 14:40:00) [facility] OFRHNQHKAO0107-69-93 19:40:009.8[facility] FfadrtwODJEDDHATV0047-68-15 19:40:00 83.6[facility] HdgnraeNAJYXDMQUB2642-79-89 19:40:005.4[facility] HermannHEMATOLOGY 2013-01-06 19:40:000.9[facility] AhpgslbYXKODKBOZZ0309-09-32 19:40:00Normal (01/06/2013 14:40:00) [facility] MrmlqewEVCCGVVCDQ7529-69-58 19:40:001.4[facility] NsnqwrbVMESHQWUYO6530-29-94 19:40:000.8[facility] JoadutbYFSANSDWKH6299-45-46 19:40:000.1[facility] XhmfvnzYOUJKKOKJI7533-39-65 19:40:0011.9[facility] LWXUICYDYG3668-14-96 19:40:000.3[facility] ZwrsnfuRIMYSWVZYI9341-23-85 19:40:00 30.6[facility] UcvqkvaMFCSWEMDRX2885-39-44 19:40:0014.2[facility]annHEMATOLOGY 2013-01-06 19:40:0010.1[facility] LtrrssnIZCOQDJHVT7770-88-54 19:40:003.19[facility] MjmyhdaACOSONWWNX5211-69-07 19:40:00* Test Item Value Reference Range Interpretation Comments MCH (test code = MCH) 31.8 pg 27.0-31.0 H [facility] NbigtgzCWLMHWGRMT8150-47-14 19:40:0096.0[facility] HermannHEMATOLOGY 2013-01-06 19:40:0033.1[facility] YrykfqyGNOBYFAPAZ9643-46-79 19:40:0015.7[facility] PcxpevmXITQYNWAGC3215-42-45 19:40:01272Suychvza AiceujuMHYAMADBZA9302-40-61 19:40:006.6[facility] HermannBEDSIDE GLUCOSE YVOSZVO9038-05-80 22:06:53904Uwlrlqbr HermannBEDSIDE GLUCOSE GMXETXK9791-88-38 18:18:85639Lrcyxmfr HermannBEDSIDE GLUCOSE BJOSUJO6179-79-62 12:20:65638Pqmixlmh EedmlarLEZIGIGYH4673-84-35 10:19:004.9[facility] RvrxjftNNSLTOGSL8066-75-75 10:19:008[facility] KJXEQNEZS2240-30-39 10:19:004.7[facility] LgpojudPVFDTEWMO8497-64-45 10:19:0094 [facility] RdsadpjICWDXNYYS8313-27-73 10:19:008.5[facility] HermannCHEMISTRY 2012-12-28 10:19:0030[facility] WfqahpcPHOEDXVAZ1094-49-05 10:19:06205Hrjhbzxp KavjjadAZTJAGGHM9561-09-11 10:19:03439Eenuaade KdoyuhjQTINQIHHR0779-71-86 10:19:005.5[facility] UnduaklJZNAAKFTC5279-90-06 10:19:0046[facility] XDRFOPPSI4535-18-63 10:19:0017.7[facility] LirvbkoFXIQFBXNV0889-58-39 10:19:002.1 [facility] FsrqfuoGNIWQVWHAP3539-86-40 10:19:002.4[facility] HermannHEMATOLOGY 2012-12-28 10:19:000.3[facility] PtcympuVESVDWQOCJ3745-01-55 10:19:004.9[facility] JclwbpoNVDXYYEGPO3411-56-37 10:19:001.1[facility] IatgmvrAWCAXHCNJQ7423-06-23 10:19:000.5[facility] KbbderoIJTBKMNHER7297-45-38 10:19:0073.1[facility] YTWDKOXLWV0164-07-58 10:19:0016.0[facility] JjrmfniBGZIERWRRM7465-75-78 10:19:00 8.2[facility] BmovcphAOOYESMXXA6977-81-38 10:19:000.2[facility] HermannHEMATOLOGY 2012-12-28 10:19:000.0[facility] LzgkkcwEOFDHDMJUJ5678-54-12 10:19:75631Jniyhfmx OguldjkDUXBCFNPRO4035-68-63 10:19:007.2[facility] KeyhybnVNRUPTTHHI8453-03-05 10:19:0016.1[facility] PdsqazsMZQYTIZCUF0552-79-10 10:19:0029.1[facility] LMQOCHAWET2359-78-29 10:19:0095.3[facility] FpypqxyGWJXJEKBTD8111-05-73 10:19:00* Test Item Value Reference Range Interpretation Comments MCH (test code = MCH) 31.6 pg 27.0-31.0 H [facility] IxguxiaLOCXTCYRZS1319-54-16 10:19:0033.1[facility] HermannHEMATOLOGY 2012-12-28 10:19:003.05[facility] FhkibhuYOETOQBTOQ8517-47-22 10:19:009.6[facility] JglfhetZUBRBNAAXO2364-33-67 10:19:006.7[facility] HermannBLOOD BANK RESULTS 2012-12-27 17:16:00Negative (12/27/2012 11:16:00) [facility]annCHEMISTRY 2012-12-27 17:16:00813Hsetpdhm BsinjrcCIPLPOQMY9994-76-96 17:16:02233Anhewayp NqwlcaiTPEQVHGNN5813-28-83 17:16:0048[facility] GkyofzjINOYKMXFG7710-21-98 17:16:74830Vrzsprfg XwmjpiuCQGZOJCFI8457-69-53 17:16:0016[facility] TQQPOFVTU2781-68-50 17:16:09858Wkbzyoyo HermannBLOOD BANK VKXRLRN3259-32-90 17:00:23Product available 5(12/27/2012 11:00:23) [facility]annCHEMISTRY 2012-12-27 10:19:006[facility] HvpdqceSMZPTOVIE4207-73-66 10:19:006.6[facility] EzcqlokLCTKSWXKQ4533-04-63 10:19:0018.6[facility] ApbyyyrUMIIIVJIN7764-51-74 10:19:007.6[facility] UessuigETGCUXWRT4719-29-39 10:19:0087[facility] BULHUWOGP8702-02-31 10:19:23797Rpzorgrs BeksvgiHYJFKKTCC7519-20-84 10:19:0031 [facility] PwyqyfzDXAQLUVSS3275-52-80 10:19:0091[facility] HermannCHEMISTRY 2012-12-27 10:19:004.6[facility] RrelrrcDVKUIEMTH2900-79-57 10:19:69406[place] YdgnznfQAGNGJWMJQ8644-94-08 10:19:000.2[facility] HxcsuyqZNFWRQLMQN5952-86-26 10:19:000.0[facility] BpcexymDNELNBUVHP8797-27-19 10:19:000.6[facility] XYAUQVUOXR4686-32-25 10:19:001.2[facility] ImfrfchJNHKBDFYZV6729-81-40 10:19:004.0 [facility] QzjtjlzRZKYGOIVME3235-15-70 10:19:000.2[facility] HermannHEMATOLOGY 2012-12-27 10:19:002.7[facility] MqjaevmBSDJQJNRLH2233-90-30 10:19:009.5[facility] NiqdscuBESIXJXSGM5366-36-24 10:19:0020.0[facility] VljobguRUDATFHEVL5439-29-15 10:19:0067.6[facility] FkyaxydFWUQPKGDAP4197-96-10 10:19:0096.0[facility] GVZWKGZYRM2488-76-81 10:19:0033.0[facility] VpmeydlKGONIWVMIS9831-08-46 10:19:00 7.7[facility] HxpngcyBCXFZNGXQK1256-95-83 10:19:002.44[facility]annHEMATOLOGY 2012-12-27 10:19:005.9[facility] AibntihRVMFCQKYUH1426-73-56 10:19:007.2[facility] SeersdbNOEEVGTOIW8771-61-44 10:19:0023.4[facility] ThyebbpVLIQSHEXRB6278-47-13 10:19:00* Test Item Value Reference Range Interpretation Comments MCH (test code = MCH) 31.6 pg 27.0-31.0 H [facility] UajzayxYFPYOTAYUT7260-01-56 10:19:25101Gxnghcnd HermannHEMATOLOGY 2012-12-27 10:19:0016.1[facility] HermannBACTERIAL - FKYGOFMH5049-71-61 03:59:00 Negative 1(12/26/2012 21:59:00) [facility] ZsulvxnVFYGHPEKH7316-56-78 00:20:002.3 [facility] ZjlvmwlFUHFJLYGZ6670-27-83 00:20:00<0.02[facility] HermannCHEMISTRY 2012-12-27 00:20:0087[facility] ZvuxvwvUGHDQPQMA8463-05-40 18:32:005.9[facility] MhspxcoPBEOKSUKY6118-35-89 18:32:03966Attsezal VemgrkzEGPSFIVGD5402-41-20 18:32:0093[facility] OmwyijrUYERZCIYP0863-90-09 18:32:0021.9[facility] EDYSITQJJ3496-04-96 18:32:007.8[facility] IssxnjiAAETTKYBB7967-12-40 18:32:006.4 [facility] NghdthwOTUDMHSRZ6494-60-37 18:32:0027[facility]annCHEMISTRY 2012-12-26 18:32:0067[facility] NisiopsZCFWJHTDV1016-89-44 18:32:10740Iuplaehv RlzpzepVWLPZFWXR0803-27-47 18:32:007[facility] SlfjpofINLJWVIXP6364-51-03 18:32:00 2.2[facility] QvwhjbeHGWMAFSDA5779-04-90 18:32:0067[facility] HermannCHEMISTRY 2012-12-26 18:32:00<0.02[facility] MnjprpoONIBMDAFB7303-09-13 14:20:006.2[facility] MtixmtzWKXTBBWMC3039-70-05 11:34:001.8[facility] HwktjotJWIBGZHJI5213-65-69 11:34:000.5[facility] OzfjtjqIXVYRATNP2544-25-65 11:34:003.1[facility] DWFACZRWZ5119-80-98 11:34:0090[facility] HxctbutGOCUHPCKX5103-07-69 11:34:00<0.02 [facility] KibmodjMQINKTEMQQ1514-15-60 09:00:001.05[facility]annHEMATOLOGY 2012-12-26 09:00:00* Test Item Value Reference Range Interpretation Comments PT (test code = PT) 13.9 s 12.0-14.7 N [facility] GsqupqbALHOYUVMLX5021-98-20 09:00:00* Test Item Value Reference Range Interpretation Comments PTT (test code = PTT) 42.5 s 22.9-35.8 H [facility] YicspocQZRBTSANMG5038-64-55 09:00:00Negative *NA*(12/26/2012 03:00:00) [facility] XrohjuuEMVKFXRPC2258-83-43 05:45:003.3[facility] HermannCHEMISTRY 2012-12-26 05:45:0013[facility] HzvgjueJYQJBYVGH7190-50-63 05:45:007.8[facility] PebasfpBZBJTQMPS1685-29-17 05:45:08653Ptchufvh RxaxaymEBKOXROUZ3291-41-84 05:45:000.3[facility] OrrbkjlWDHLPYUFZ1333-49-67 05:45:0020[facility] BYJGNVLCP4496-25-61 05:45:0044[facility] DhkbhrbAYADTAVPL0452-68-83 05:45:004.2 [facility] FgtqqjxKJNAXAWLY6277-37-85 05:45:000.9[facility] HermannCHEMISTRY 2012-12-26 05:45:003.6[facility] DiktrieGOJSEAUPF6664-99-14 05:45:002.5[facility] UokzvmoPZCOGMLRGK2417-16-84 05:45:000.0[facility] ZwfisscCYUFVVBRLX6442-59-53 05:45:001.0[facility] ZfjajmnELKTTCKOHR2550-94-73 05:45:000.1[facility] RUCJQWTVQB1751-39-90 05:45:000.5[facility] HxfkaecANDYPDZGAQ5303-99-51 05:45:002.0 [facility] OrvusnkQCORRYCNIV5486-93-22 05:45:000.2[facility] HermannHEMATOLOGY 2012-12-26 05:45:006.1[facility] SerpeskSRZPPXEPKH7018-28-05 05:45:0013.6[facility] QvxivgtPGQLOCLLQQ6096-83-82 05:45:005.8[facility] NwbbmfqVYKCNKVORJ0217-77-51 05:45:0078.1[facility] SmkkuxuGVBJUURPQI5510-50-60 05:45:00* Test Item Value Reference Range Interpretation Comments MCH (test code = MCH) 31.9 pg 27.0-31.0 H [facility] CwkfhaiSWUFCXFPCJ9089-74-19 05:45:0033.0[facility] HermannHEMATOLOGY 2012-12-26 05:45:0016.3[facility] RicjgiuYKQLNHULRP9266-48-28 05:45:63171Sajgsaod YjekrtwHDHPPTWVRL8781-92-38 05:45:007.4[facility] XocqhpgCFUJYJNTAS2732-91-03 05:45:007.5[facility] LgjyiarIEZTMMQKTC3331-08-55 05:45:0026.3[facility] CIOKYXXUXA9380-98-94 05:45:002.72[facility] PnmtyykSNLTKXXLTC2060-68-41 05:45:00 8.7[facility] OnhyvllCZWLRDKIIB9299-10-00 05:45:0096.7[facility] HermannCHEMISTRY 2012-12-05 13:43:00<0.02[facility] XbpyoqcXNSGPBSSY8160-10-76 13:43:0076[facility] AtwmmreKJLGQASAF7546-26-20 13:43:000.7[facility] RxrbkstPZZCLRLDX9858-92-31 13:43:0019.9[facility] JjhoezeOPINUFVDE2894-02-96 13:43:009[facility] KEWYUUIXQ0403-40-92 13:43:004.2[facility] AkewukvWUGQSISKK7611-60-43 13:43:005 [facility] BcbxkphPNAAEJJMD9004-46-02 13:43:0022[facility] HermannCHEMISTRY 2012-12-05 13:43:008.9[facility] UkfjbwvCWGBGIBLO1048-20-72 13:43:008.2[facility] WptxrftTQACYIKEZ1287-93-76 13:43:007.3[facility] MsamdhyCXPNUFKRL4487-52-85 13:43:94461Itgolgfx JdecbwnGLTDFQYEM1121-44-55 13:43:000.3[facility] CTQOTBZMY6054-63-97 13:43:0017[facility] XqfuxrpHWYNFMORC3936-03-76 13:43:003.1 [facility] FoapqisHNKGRFPZU5296-81-69 13:43:0025[facility] HermannCHEMISTRY 2012-12-05 13:43:02345Jywvsuun YihzevbJZTSXDNJJ2641-79-25 13:43:0082[facility] SgeuszfXATLUBAHQ5629-30-07 13:43:39523Eyxzjfjw XglnovnYCZEWEEWU3154-64-07 13:43:74469[place]o LpeigpjZOHEADDNV4710-17-33 13:43:005.9[facility] LFDENXSIQP3449-03-03 13:43:000.0[facility] NfqawtoDQSQYUDURT0387-10-86 13:43:004.7 [facility] RtunqjrDPMCPJOPFO6533-79-42 13:43:000.6[facility] HermannHEMATOLOGY 2012-12-05 13:43:000.6[facility] MrqybcwHZFWBQUYHA7181-30-48 13:43:0010.0[facility] AhxvhdnBEPFWQLUBA8804-60-90 13:43:008.8[facility] EqvbqnmCLDTWZEIJN7270-10-68 13:43:0080.6[facility] FednjczXNLLPNXFQM7365-54-98 13:43:000.0[facility] QLRIHQIJEY6425-04-93 13:43:000.0[facility] IdfunwbIBQBFZNQLO4054-99-01 13:43:000.5 [facility] RhkaiavEZTAMMQOEX5361-50-08 13:43:001.00[facility] HermannHEMATOLOGY 2012-12-05 13:43:00* Test Item Value Reference Range Interpretation Comments PTT (test code = PTT) 31.5 s 22.9-35.8 N [facility] SamaabxUNXHUVGGHB1405-03-48 13:43:00* Test Item Value Reference Range Interpretation Comments PT (test code = PT) 13.4 s 12.0-14.7 N [facility] ZmogkprCOVXNMMVYQ6821-74-66 13:43:0022.1[facility] HermannHEMATOLOGY 2012-12-05 13:43:00* Test Item Value Reference Range Interpretation Comments MCH (test code = MCH) 31.7 pg 27.0-31.0 H [facility] MbqjglqIRZAOUZZVS7283-64-16 13:43:0094.0[facility] HermannHEMATOLOGY 2012-12-05 13:43:92282Ralwkfkj UnwblacPXUXBWGZPF9330-83-77 13:43:0016.5[facility] XzhvtmcMVWDAASQHX3929-81-46 13:43:007.2[facility] EqxxlkjMDDDWKWHIO3039-93-81 13:43:005.8[facility] YyplskcSTAIQQWQGK1391-15-07 13:43:002.35[facility] CZXTQLZOSH7478-63-88 13:43:007.4[facility] JexpktaUTWRCDXYJB2974-70-36 13:43:00 33.7[facility] HermannBEDSIDE GLUCOSE JVZOIOG1401-10-13 11:52:24122Riwcidnk HermannBEDSIDE GLUCOSE GTNTXUI9298-95-74 02:40:99637Tclymmbv HermannBEDSIDE GLUCOSE NQDBDTY5269-03-19 00:35:40855Mbkqdbiy NbrahdoHLRDKGIPW6903-06-63 11:28:0018.6[facility] IbxpgjiFSBAMIIGR7776-28-46 11:28:009[facility] OXUFCKEGD3358-69-32 11:28:004.6[facility] HiojnuuMLMHFDPIV1269-29-93 11:28:0093 [facility] VgzgshnOJMKWSPEA6951-22-96 11:28:76759Degwvwch HermannCHEMISTRY 2012-12-01 11:28:0028[facility] AjnmzvlHTKBHCHRA7259-16-92 11:28:008.9[facility] XeldmhbDYPCHIWAP8900-39-86 11:28:005.3[facility] TxnjmonEXJAMYFZH9630-71-94 11:28:49602Olpwlylw MgpyjhfLOOBUKFSX1820-46-03 11:28:0027[facility] PPMQOWMKW3444-10-13 11:28:00Negative *NA*(12/01/2012 05:28:00) [facility] OUVCSKJVCA9803-25-57 11:28:000.4[facility] EoahariHEQTCGNQRD8176-11-88 11:28:000.0 [facility] QfzfacaMFVMQHEUTJ8532-99-34 11:28:000.6[facility] HermannHEMATOLOGY 2012-12-01 11:28:006.2[facility] ShvvoedLFIHTSPSAC5677-28-27 11:28:001.4[facility] OfhfzpaDNZKLTTFNF3803-04-44 11:28:000.2[facility] WpqucbfHFHWURLPIU5044-94-61 11:28:006.7[facility] NsfprqtNFSOYVIIZJ5142-15-44 11:28:004.8[facility] HMQVBOAYGG9547-67-41 11:28:0072.2[facility] YhcdqsiGPMKGSXCFC1187-63-93 11:28:00 16.1[facility] VyxqvtaPOZBJDNLGS9715-30-08 11:28:0016.3[facility] HermannHEMATOLOGY 2012-12-01 11:28:00* Test Item Value Reference Range Interpretation Comments MCH (test code = MCH) 31.2 pg 27.0-31.0 H [facility] DscflrfJJKRWBIFOU0223-10-22 11:28:0033.2[facility] HermannHEMATOLOGY 2012-12-01 11:28:0093.9[facility] RvatygbXZBGSXSJAW6560-54-13 11:28:009.4[facility] GbjkbvzMFPUADCQOD3167-15-19 11:28:0028.5[facility] JrwlkvrXSMLAOURMF4514-11-03 11:28:003.03[facility] AgepmiiWHVKQFQNNC7310-88-67 11:28:18074Pdeynsbr [place] NMBKZNGIUN3737-39-00 11:28:007.3[facility] BhgpnrzILTVRJNTNX6487-63-68 11:28:008.6 [facility] GxwrlrpISWMEZWKK9178-60-40 11:19:61083Bxtwbnza HermannCHEMISTRY 2012-11-30 11:19:0053[facility] MixxetnOOLKFZOHR6141-43-43 11:19:0031[facility] UmsfpfhLYDHLIDFY5660-44-69 11:19:0014.4[facility] KiiafyuHHTAAGSQH8070-56-23 11:19:007[facility] GknzvqlAMDFMMLXP9693-08-54 11:19:000.4[facility] RMOGWKIGS8272-96-27 11:19:0018[facility] VnvyvwqQFPDAJXIH3187-11-82 11:19:59822 [facility] VnvmfteVVJFKFYOD1946-08-09 11:19:001.0[facility] HermannCHEMISTRY 2012-11-30 11:19:0034[facility] KxawjayHRYFNBDTW6557-09-50 11:19:003.5[facility] WwjdtlaEZBIVGPOC5451-05-18 11:19:006.9[facility] DbwiczeZIVXBJMBB1065-17-67 11:19:003.4[facility] OjqvaehUGKSIYZUF7136-51-06 11:19:006[facility] POQHONWGC7524-06-13 11:19:23019Qhhzwexd EyfembsJBTVPIXWW5400-02-41 11:19:0093 [facility] KevdiziCAANFTRWN6765-04-34 11:19:004.4[facility] HermannCHEMISTRY 2012-11-30 11:19:008.1[facility] RrxghipKETSAFNDM0044-11-26 11:19:007.1[facility] DbjhmhsZDAULGKLLC3705-54-52 11:19:000.4[facility] VimmivjVLNKISQBWZ6733-57-97 11:19:000.6[facility] HuefemyTUKJTYWNDI6327-50-03 11:19:001.4[facility] ADOHOVCLDR5824-63-93 11:19:006.7[facility] GbknjxaRPBVBYMWLJ9968-82-78 11:19:00 73.1[facility] JsrxfbxRKZBCBDAAI8842-16-77 11:19:0015.7[facility] HermannHEMATOLOGY 2012-11-30 11:19:000.0[facility] GloklowJNWGFCTEND8389-16-27 11:19:004.2[facility] ElasoubHPTDHYQDYV5877-22-39 11:19:000.3[facility] YmmjhwxTOVWAAZAAO1544-21-74 11:19:006.7[facility] JwkwwwkHBIWBTKFNK8613-45-88 11:19:68251Spoickaz [place] NQPGGXCIRP6374-88-45 11:19:007.4[facility] QrebpmjOWDCXVYENH3655-36-27 11:19:00 32.9[facility] TtmgekoGJPYGXBTNP9805-65-85 11:19:0093.3[facility] HermannHEMATOLOGY 2012-11-30 11:19:0016.2[facility] VfdmrhqSRVRQZJLHZ8061-42-47 11:19:0026.6[facility] GeaaozkRBZKMWPCCO6651-45-22 11:19:00* Test Item Value Reference Range Interpretation Comments MCH (test code = MCH) 30.7 pg 27.0-31.0 N [facility] XambtbqTCCUVCOANQ2514-77-79 11:19:008.8[facility] HermannHEMATOLOGY 2012-11-30 11:19:009.2[facility] QtodkmiMFGJKINWRW6421-03-38 11:19:002.85[facility] LzkyxjuKPDXJGKAHG7031-77-73 11:19:00Negative *NA*(11/30/2012 05:19:00) [facility] LwdmrzzEFOGJTDFU1703-64-83 17:33:0099.6[facility] DakozgsYYOXGZZRS3254-23-01 17:33:003[facility] VfvutluLIKNUDQOF6791-01-16 17:33:00Right Br (11/29/2012 11:33:00) [facility] LznocmhQBCMFIJRC9669-36-82 17:33:0031[facility] MYEVWPVVW8150-15-10 17:33:86523Uvgfwlwd OrfqfqyUMRHRXJGR6688-24-71 17:33:0010 [facility] LjzwmuqLSGIUWDKW9980-26-24 17:33:0050.0[facility] HermannCHEMISTRY 2012-11-29 17:33:00Cpap (11/29/2012 11:33:00) [facility]annCHEMISTRY 2012-11-29 17:33:0037.0[facility] JspnajjAKSDYPJKC6683-95-30 17:33:0058[facility] SxlndhnSPHSQYSAH1176-51-23 17:33:007.33[facility] NskotosEPZEFWBDN2842-39-81 17:09:00<0.02[facility] JvidnscYDTMNYTZB1173-18-73 17:09:0079[facility] XIDZMMJLQ0271-39-60 17:09:0067[facility] LannstgUUQJFOKUE4338-04-84 17:09:007 [facility] CllfyudBXUYJIGOE7299-30-08 17:09:006[facility] FeetjdmQNVEYGXKA3800-35-17 17:09:0015.2[facility] ZqwnsqkIXKAWWTPS2399-23-83 17:09:0022[facility] PQSTIQSJO4096-90-77 17:09:000.3[facility] HrficywROVLNXIYR0125-17-86 17:09:006.2 [facility] PflvsnwQNFXOPEIJ2111-78-18 17:09:0040[facility] HermannCHEMISTRY 2012-11-29 17:09:0036[facility] BpdhrbjFZCAYEVQD7218-56-08 17:09:003.6[facility] XkiktgbFNXZAIROS7291-98-66 17:09:57139Qaybwtqi CidbxlyYEABCWNFA2942-46-34 17:09:007.4[facility] VltdnthMRJIFGATW3694-91-08 17:09:008.3[facility] TWVHVTZWA9125-68-81 17:09:93850Begcwlmh FjxdxwtTWPCWPKOZ2955-59-62 17:09:0029 [facility] GpmoluoDYRAPHSBR1981-43-84 17:09:000.9[facility] HermannCHEMISTRY 2012-11-29 17:09:003.8[facility] DosiiqfAIQLEFKWI6481-93-82 17:09:0098[facility] GhazrkjXQCULINPG6177-37-05 17:09:43983Uvfvyguy SzdsfdoALDMJZJRO8908-76-62 17:09:005.2[facility] ZyhqpehXCQQNHWYG6626-27-54 17:09:000.6[facility] GBJYMIRPU6011-10-61 17:09:000.8[facility] QeoxebjJYXPOSZNPN3848-03-23 17:09:000.97 [facility] KogxvkqLDTSWPPXCC0997-43-58 17:09:00* Test Item Value Reference Range Interpretation Comments PTT (test code = PTT) 35.5 s 22.9-35.8 N [facility] KyotussZAEGQHXEQT7764-14-72 17:09:00* Test Item Value Reference Range Interpretation Comments PT (test code = PT) 13.1 s 12.0-14.7 N [facility] PoybvdoNGBEYWBCSF5209-71-13 17:09:72166Pmnohncf HermannHEMATOLOGY 2012-11-29 17:09:007.4[facility] TdgegerDFJSDLUZMM4568-79-44 17:09:0016.1[facility] TynxoehITAUJWCMSN9841-60-83 17:09:00* Test Item Value Reference Range Interpretation Comments MCH (test code = MCH) 31.1 pg 27.0-31.0 H [facility] MbojqscUXCIKSPPBB4183-27-11 17:09:0033.0[facility] HermannHEMATOLOGY 2012-11-29 17:09:0094.3[facility] WwiiiadBYUJHVISVR4768-06-12 17:09:0027.6[facility] NlhfvkjZDIGXKKPYT3003-27-22 17:09:002.93[facility] QzahedhGDZUWGVJKC0700-83-56 17:09:009.1[facility] GhemiayCREYGUEMCF9219-82-67 17:09:007.0[facility] VOWOFJLJBX1071-07-39 17:09:000.6[facility] NgufrjaCVOPKCETLQ2433-02-38 17:09:001.4 [facility] KnscljcQTPVJFRLFV2918-07-95 17:09:004.8[facility] HermannHEMATOLOGY 2012-11-29 17:09:000.3[facility] UykxrqrLEYFNUYRLA4494-51-16 17:09:003.3[facility] BkdvkezOAORZYPFWH5168-58-46 17:09:009.1[facility] ItndqycNBTNGLNYDT9669-60-56 17:09:0019.3[facility] QlnyfznMAJKVPUVCW8239-50-27 17:09:0068.0[facility] ZPGLSHRAYD5385-52-81 17:09:000.0[facility] BwqhykhZKGJQHEWTM0508-56-61 17:09:000.2 [facility] HermannBEDSIDE GLUCOSE BMWSLDH4979-26-33 23:30:18505Yvjmwdrl [facility] BEDSIDE GLUCOSE UWPDZIX1725-52-79 17:33:32745Kglhkcxh HermannBEDSIDE GLUCOSE GRUREES4229-78-55 12:05:05401Ffhomdhj BfzzlamNKNQBSDTK4202-99-43 11:18:003.8 [facility] UztnfedFWMMIVYRS5549-70-70 11:18:009[facility] UvignrlVWHZIXMZT2841-92-03 11:18:0014.5[facility] OhbpdcfBMRUDFHUF9015-72-89 11:18:007.3[facility] SAESBHRLP0289-91-41 11:18:0096[facility] QecgqjeAIXUNXNKO7354-75-36 11:18:0028 [facility] AfdfnopCQJAMGKXP6397-29-54 11:18:004.5[facility] HermannCHEMISTRY 2012-09-09 11:18:02866Gthtoack JnlxgllFQPMMHSFM8030-14-73 11:18:0045[facility] IkyavcwOYLFUFOKZ8221-35-97 11:18:005.4[facility] EwjwhqyRKNMCRQLH2582-03-46 11:18:0097[facility] QmymwhtXUXBRPZNB3169-21-00 11:18:002.0[facility] UOWJRHQRL2099-96-60 11:02:007[facility] KrtoqohQXXYICADN5350-67-52 11:02:006.6 [facility] CvklpeeKSDXBXRKH3970-27-87 11:02:0091[facility] HermannCHEMISTRY 2012-09-08 11:02:04496Ycerdiyu MklkdjtFDXOEUDXK8849-51-55 11:02:0063[facility] UotctjiKATBKHXRH0566-35-98 11:02:004.6[facility] YfgrrxeJJXRSOFLN2639-52-64 11:02:007.4[facility] QxsxrzeJYOPDLOZC4254-73-01 11:02:0019[facility] HFPFMBLLR4262-21-98 11:02:0081[facility] FqrzxpqHSTPVXNOJ3950-89-31 11:02:0021.6 [facility] MoljoxxOBCTERSPMH8282-97-18 11:02:001.8[facility] HermannHEMATOLOGY 2012-09-08 11:02:000.8[facility] JbufwmmWZMDYUEYEL2313-33-65 11:02:000.1[facility] XdcxkfhWAYLUGAGQF7437-51-65 11:02:008.5[facility] ItzmvaaFKVVPNHOZI0652-91-58 11:02:000.2[facility] HfvljjtJYIQYOGPLJ6870-33-71 11:02:00Normal (09/08/2012 05:02:00) [facility] NaqztdzTMIJCERPPN5004-23-99 11:02:0015.9[facility] USZANZDSJY2632-74-00 11:02:0074.6[facility] WdwaafbOMYXVAWWJF0338-36-44 11:02:00 7.3[facility] QgnltmfPOMGFLSQBL4083-36-15 11:02:002.1[facility] HermannHEMATOLOGY 2012-09-08 11:02:00Normal (09/08/2012 05:02:00) [facility]annHEMATOLOGY 2012-09-08 11:02:000.0[facility] YoyuodkHADGRVACWR6377-77-64 11:02:00* Test Item Value Reference Range Interpretation Comments MCH (test code = MCH) 31.2 pg 27.0-31.0 H [facility] RipeyalWMCVQKJRDN3303-27-01 11:02:0093.2[facility] HermannHEMATOLOGY 2012-09-08 11:02:0033.5[facility] WdnfammZMBXAIMKBS0150-13-44 11:02:0026.8[facility] ClxpplmTRVOZAVDPD1437-75-37 11:02:009.0[facility] YdmptkaNWDVUBNRIK9330-33-07 11:02:002.88[facility] NkjmbzjWJLPMFOYCU5014-36-13 11:02:0011.4[facility] FFGXBAUOWP0385-18-49 11:02:0014.3[facility] ZwvrsrtPIFIXIYZOL1853-96-78 11:02:00 7.2[facility] BoaojrbGOHRVKRIHN2778-15-71 11:02:48778Sjheczfl HermannURINALYSIS 2012-09-07 19:00:00Moderate /HPF *ABN*(09/07/2012 13:00:00) [facility] PUNHZJHDLQ9878-96-09 19:00:005[facility] KcxcodpKZFILSQJXN2097-85-52 19:00:00 Negative mg/dL *NA*(09/07/2012 13:00:00) [facility] IxjoxkjWQKPZLPJWK6164-86-57 19:00:0050 mg/dL *ABN*(09/07/2012 13:00:00) [facility]annURINALYSIS 2012-09-07 19:00:00Marked *ABN*(09/07/2012 13:00:00) [facility]annURINALYSIS 2012-09-07 19:00:001.015[facility] HcgmwndHGRQCGCECJ5945-08-89 19:00:005.0[facility] IymopxkHEZUACWVIN7755-06-94 19:00:63236 mg/dL *ABN*(09/07/2012 13:00:00) [facility] KiludrtEFJCEJPRNW4587-78-47 19:00:00Small *ABN*(09/07/2012 13:00:00) [facility] CndftkjWBKJZHUMLR1474-36-94 19:00:00Many /LPF *ABN*(09/07/2012 13:00:00) [facility] AxmsjccPRPEISDWPC7607-42-24 19:00:003[facility] QICONOSNJN1420-81-04 19:00:00Few /HPF *NA*(09/07/2012 13:00:00) [facility] LxfvhpuGMGYXJOQMO6473-71-27 19:00:004[facility] MhbplybNGUGJCFVRF5028-33-74 19:00:0016[facility] JwfgnstMURFFLXMXU3812-80-84 19:00:00Negative *NA*(09/07/2012 13:00:00) [facility] PczlndtUMDHGOGSBY1910-78-60 19:00:00Negative (09/07/2012 13:00:00) [facility] SkbyxqyNMNZZUCCIX8553-03-08 19:00:00Negative (09/07/2012 13:00:00) [facility] ItpfoerLCKSUQUNS0195-72-05 09:51:002.0[facility] FNJULKYWK6837-56-55 09:51:006.2[facility] XlgoxatQTLHRTUFH5555-06-81 09:51:0060 [facility] RnhsyhpRQIGCYQPN6744-69-99 09:51:0023.2[facility] HermannCHEMISTRY 2012-09-07 09:51:0023[facility] QkbtwccJUAILDWZG0311-13-37 09:51:43436Hcpqzcai PdljnslPRXSISXXC4991-81-14 09:51:0064[facility] LujlvpoVMMZRGYWY6701-67-83 09:51:007.0[facility] ZotjywkJDRFEAPIH6536-05-90 09:51:006[facility] VJZRGOSYI1671-45-42 09:51:13083Ikuzdbkp XxdskakZMQJZEXUS6486-84-52 09:51:005.2 [facility] VcidocqAJIGSFITD1268-82-52 09:51:0088[facility] HermannCHEMISTRY 2012-09-07 09:51:007.8[facility] PkqehktCQBZXUUCRP6098-51-48 09:51:000.0[facility] NloghdyUDFKSWIDGA5777-51-08 09:51:000.0[facility] TyxgpixMGZMWTGRIT2653-92-73 09:51:000.8[facility] QoabmstCDRLEWELSS9317-74-32 09:51:000.9[facility] TLHYTDEYSJ3130-80-28 09:51:008.9[facility] JssvzodFYJBQFECKR1598-12-76 09:51:000.1 [facility] YqgxmawDLAIUCVCDS0129-46-86 09:51:000.1[facility] HermannHEMATOLOGY 2012-09-07 09:51:007.9[facility] DsttdhsWBBGICIPRB7174-67-22 09:51:008.7[facility] LabcgidKKERSNAHZC8880-73-01 09:51:0083.2[facility] RcrmhnlAGUFVTVLEC0825-07-69 09:51:007.3[facility] UpodpufOTSKWVWONF2988-94-90 09:51:10255Qrfiorjc [place] KTRQKGFMYP6039-76-27 09:51:009.1[facility] SwedyuuNZMYLOHANS1239-67-79 09:51:00 2.85[facility] RayvglxWXVKRDFKFN6833-22-34 09:51:0010.6[facility]annHEMATOLOGY 2012-09-07 09:51:0014.1[facility] XwzdkenAHJLTLZTGR8710-08-40 09:51:0034.6[facility] YqscdwgMWQFQWQVJP3687-44-84 09:51:00* Test Item Value Reference Range Interpretation Comments MCH (test code = MCH) 32.0 pg 27.0-31.0 H [facility] CdqahkgHRGSXIDOPM8411-45-28 09:51:0092.5[facility]annHEMATOLOGY 2012-09-07 09:51:0026.4[facility] UrdgmtdAKUXJTHXMT0899-15-49 09:51:00Negative *NA*(09/07/2012 03:51:00) [facility]annBACTERIAL - KPKPLPQZ8902-33-15 02:45:00Negative 1(09/06/2012 20:45:00) [facility] JkxosvrINBDKCRVX2721-52-21 11:17:001.740[facility] NlyojylTDQVWGZYMC6664-19-17 11:17:007.1[facility] HPOTNUJVAI7600-63-22 11:17:38535Uoftaztr MdvdckvYBHBPNXCXA8675-33-10 11:17:00 14.2[facility] ZsczvvlCHFGRKMPJA3429-12-60 11:17:00* Test Item Value Reference Range Interpretation Comments MCH (test code = MCH) 32.0 pg 27.0-31.0 H [facility] EjlawucRCDZGTANQO2876-32-79 11:17:0034.4[facility]annHEMATOLOGY 2012-09-06 11:17:0093.1[facility] UvtgrzuSRSAVXVFOE2417-77-61 11:17:0010.2[facility] WgilfeaYOHXENCIGU2639-65-34 11:17:003.18[facility] KfeawvtZQJZLFONJO6855-93-07 11:17:0029.6[facility] EoxwnsvKYUPBLEOJP5786-76-80 11:17:008.3[facility] ORJCPFPHOA4396-97-97 11:17:000.0[facility] HxfuajzAXDPIEDGSL3867-14-56 11:17:000.2 [facility] CvabezaVVUZNWYGBW1260-42-94 11:17:000.8[facility]annHEMATOLOGY 2012-09-06 11:17:007.4[facility] MlxtxgkVKKMCGNTPR2889-80-71 11:17:000.0[facility] PiftbpbUKBIMMDSXU2720-48-85 11:17:000.1[facility] TrmqzxmNRZEYFFWXG1717-51-02 11:17:000.2[facility] OgnovinAQFGLLKEOE7739-97-19 11:17:009.5[facility] YBPPJQEYDR8679-80-81 11:17:001.3[facility] OsaeshjBJGNUMDNBS6451-36-62 11:17:00 88.8[facility] UlkfnhaWOAJJEEVN4907-71-19 21:01:0028[facility]annCHEMISTRY 2012-09-05 21:01:003.5[facility] CldbwtsVEMCRUUQH5379-86-97 21:01:02569Lgrnhqmw WqhfmvyRRQIPSTAL1764-37-04 21:01:0046[facility] PiemnjzWTCGCBGUW3823-54-39 21:01:000.5[facility] CshtluyCUONRJMBZ2475-90-91 21:01:008.7[facility] GTMPJWNSQ5779-85-52 21:01:000.7[facility] ApbgzswFVRLBDXAR7345-38-34 21:01:005.2 [facility] DmzozzqPJENCDKGK6336-12-05 21:01:007[facility]annHEMATOLOGY 2012-09-05 21:01:00Normal (09/05/2012 15:01:00) [facility]annHEMATOLOGY 2012-09-05 21:01:00Normal (09/05/2012 15:01:00) [facility] HermannBEDSIDE GLUCOSE NJVOSEX9040-22-91 16:12:71320Epdpdazb HermannBEDSIDE GLUCOSE NWVBLZS6673-62-29 11:30:0068[facility] HntixavYZFWRVGDI0052-15-19 10:59:002.4[facility] HMLIQAQKX6467-09-63 10:59:008.1[facility] QftyboeHGLRGFKDA9236-69-28 10:59:0016.7 [facility] JfzymwrCPXUFABBR7088-28-94 10:59:90615Wqkrdjqe HermannCHEMISTRY 2012-07-11 10:59:004.3[facility] IiedxqeQYLWXXHOA0494-31-14 10:59:0093[facility] QrxhzhyQGYAECTFQ5458-69-87 10:59:004.7[facility] AlsrolnOMJWOQGSV3598-38-86 10:59:0024[facility] ObdnqhxBYJTGWHTH6047-73-68 10:59:0081[facility] KHYMHJWRY0016-96-82 10:59:0041[facility] HermannBEDSIDE GLUCOSE BQXFLJY0990-68-45 01:44:18549Nvnhfypq QaadrliNBBPMUHQH6998-29-21 09:26:002.0[facility] ZFBQFWIJU2133-74-19 09:26:0097[facility] OalmtwjPJGSSKOYA4256-65-54 09:26:004.3 [facility] KvotoiwHEKUGJDRF4198-59-63 09:26:007.3[facility]annCHEMISTRY 2012-07-10 09:26:0028[facility] LwcvygeDRZIPDTUM9054-06-18 09:26:0031[facility] AlfzwwoZALLBQTXJ6891-61-31 09:26:73060Jbhwcmvc FegltyfKGZKNPHQC3281-50-43 09:26:003.9[facility] VewlnmvMAPSNXIMK5301-28-34 09:26:0096[facility] BFKHTIRAX0586-31-19 09:26:0013.3[facility] VqbuiajIBVYQBRRML3572-32-25 09:26:005.9 [facility] EkvcygkNRPYDCATFO4135-98-53 09:26:0034.7[facility] HermannHEMATOLOGY 2012-07-10 09:26:00* Test Item Value Reference Range Interpretation Comments MCH (test code = MCH) 32.8 pg 27.0-31.0 H [facility] MhdarpnALRRRRCCBG7507-36-59 09:26:97204Gjnnbmvo HermannHEMATOLOGY 2012-07-10 09:26:0016.2[facility] LyxayzqLRJGUUSFYD8694-05-16 09:26:0094.3[facility] ZksskpsVMNHUWRJHS7937-69-07 09:26:002.72[facility] TwlkaukGYPBKBTGCQ1874-21-31 09:26:007.5[facility] XgipqsuEYGILHQPVA1157-90-08 09:26:0025.6[facility] ZMDBKBEQXN1261-48-51 09:26:008.9[facility] GngmcelPZBKIBXZQK7680-03-99 09:26:000.0 [facility] YuqttxcLXUYDUZOMX1583-51-08 09:26:001.1[facility]annHEMATOLOGY 2012-07-10 09:26:000.8[facility] FoaxkycQKIZUJQUXZ9792-40-99 09:26:000.3[facility] FdgwrhjVIXGBXYPSF5772-05-24 09:26:000.3[facility] NdddiemVFSIGUETQO3982-86-94 09:26:005.3[facility] ZgqdjtuRQKJYYTZXT0155-37-10 09:26:0014.4[facility] DPSOLJXMVU7891-91-83 09:26:0010.6[facility] BzmchzmXHDFVWPXFX2286-65-24 09:26:00 4.0[facility] IytqwsvWBNCGWYIQA0879-28-24 09:26:0070.7[facility] HermannIMMUNOLOGY 2012-07-08 19:00:00Negative *NA*(07/08/2012 14:00:00) [facility]annCHEMISTRY 2012-07-06 10:36:0096[facility] DiwrxskIJHIXYWWM5621-04-41 10:36:004.4[facility] ZpnpfawBGHYPBUEG4085-41-00 10:36:49624Zjwhhlsh RfzcdtaNJRHOGKXK1995-21-57 10:36:00* Test Item Value Reference Range Interpretation Comments eGFR (test code = eGFR) 9 1 [facility] GipaukvVSTXDFGYI3019-84-16 10:36:0014.4[facility] HermannCHEMISTRY 2012-07-06 10:36:007.3[facility] QirtzurUQPIPORWX6179-97-05 10:36:0025[facility] HoaumztSNLJPPKQO0021-73-33 10:36:005.3[facility] TjjsesqFGAPLIFLU5056-16-70 10:36:0041[facility] VdauzceEMXKEEXXJ7927-29-00 10:36:36437Klrfhpaj [place] SIYZFLWIM1017-89-96 10:36:006.1[facility] HihluhpFTHUVMBEA1711-18-42 10:36:487393 [facility] KglestbHMMVCZGGK9462-57-90 10:36:34004Dmfnbrjs HermannCHEMISTRY 2012-07-06 10:36:0068[facility] QobqmtiOYFRYBFIL3689-40-85 10:36:73650Nkyvahje RwbbawqRFJGZWKKC5820-92-68 10:36:0028[facility] MaeqcwhKFFQDNTDG3611-41-95 10:36:74552Nurjfwpg LlndadjQZPGMAEOHO4241-95-27 10:36:005.9[facility] IRRAFTCKMQ2035-64-21 10:36:000.3[facility] HngnicxWGLGRAIMAR5600-98-06 10:36:00 68.9[facility] DrlmoopBYDLDAZTRS2077-71-45 10:36:000.4[facility] HermannHEMATOLOGY 2012-07-06 10:36:001.4[facility] QbiyqriCZXVJPPLVB1501-35-73 10:36:000.9[facility] DuxeffrJBCFRQTTIB1291-96-74 10:36:000.0[facility] JsyqogzJPRAODMXDD1675-17-43 10:36:004.7[facility] LjvkrfwWDQHQCGYRB5643-01-75 10:36:0016.1[facility] UNNYIPOWOW5140-25-96 10:36:0010.0[facility] ClbpmchVBULRWWUON1871-79-49 10:36:00 34.0[facility] EjdopkuINUCTDQTWE8492-09-29 10:36:0017.4[facility]annHEMATOLOGY 2012-07-06 10:36:008.3[facility] EakzbcnHXXRHDNOZN0707-74-92 10:36:72848Qkgsmpxb IiynqrcGOKZRUFQBM6585-44-69 10:36:006.5[facility] AkkailxOWTRBWOIZF1753-52-10 10:36:002.56[facility] UiqzqtvATEMJMVWTW9862-80-80 10:36:0095.7[facility] MXBVHRMENC4591-58-77 10:36:00* Test Item Value Reference Range Interpretation Comments MCH (test code = MCH) 32.6 pg 27.0-31.0 H [facility] ItldvlqVOAYQNDLNN8400-51-18 10:36:0024.5[facility]annHEMATOLOGY 2012-07-06 10:36:008.5[facility] QinczieYVPJZJKBG7458-03-70 11:53:00* Test Item Value Reference Range Interpretation Comments eGFR (test code = eGFR) 8 1 [facility] KapbggxYFLEBWFNB3250-13-31 11:53:003.2[facility] HermannCHEMISTRY 2012-07-04 11:53:17523Vciwtlan JckfpizHLKQITQBL3206-42-43 11:53:009[facility] FufcnktFDCCKISNP0433-02-73 11:53:000.7[facility] DheymmqBHSQWVRAC6960-46-22 11:53:0014[facility] ZpjgxdsJNGKSRNVZ1304-23-97 11:53:003.4[facility] QERYLXKGM4782-91-85 11:53:000.9[facility] JvacegcTRXQQTCXU6084-04-54 11:53:0028 [facility] BnicsiyUDGYFOINS4179-37-92 11:53:006.6[facility] HermannCHEMISTRY 2012-07-04 11:53:005.7[facility] UujsnboSAHWELLWOU3935-93-80 11:53:006.9[facility] LjraqplSXTZQNZMRG7467-84-56 11:53:12391Gry[place]of SwkonliBIDERPEMLL9082-75-53 11:53:0018.2[facility] TlnxtzyXPBBQPTJUC7069-55-68 11:53:009.9[facility] FILFOENAUM5316-39-44 11:53:00* Test Item Value Reference Range Interpretation Comments MCH (test code = MCH) 31.8 pg 27.0-31.0 H [facility] PaivxkvPGVFCYFSSK7038-39-66 11:53:008.5[facility] HermannHEMATOLOGY 2012-07-04 11:53:002.67[facility] JusnncbFWWENSQILQ6911-03-09 11:53:0096.7[facility] KoyjlxiOMRNTRKMTB9215-06-07 11:53:0032.8[facility] VwlwnfsNAUGLLRPSJ5715-26-88 11:53:0025.8[facility] UhbwabzVLCNWZLDHF0563-54-24 11:53:000.0[facility] YCSAXVZMRZ5605-70-76 11:53:000.5[facility] WqzkxcqZSTAARWSLD1062-37-95 11:53:008.2 [facility] MqnxvkyDRLNRDTBVT4964-48-15 11:53:000.2[facility] HermannHEMATOLOGY 2012-07-04 11:53:001.0[facility] MlibwifKSKAHSBBAQ6808-45-31 11:53:000.2[facility] BrzdtqlYOKSURLIQN8354-70-50 11:53:009.7[facility] EzcgctcNHRZAEQILO3154-91-26 11:53:002.1[facility] EmvjayfNRYOYDVCNG7854-37-54 11:53:005.1[facility] YZSELELZZQ4851-56-81 11:53:0082.9[facility] YohehetFTSTCSLGT8650-69-03 11:44:003.7 [facility] EmuvnlvRBMZBYVPB3352-50-06 11:44:0032[facility] HermannCHEMISTRY 2012-07-03 11:44:007.5[facility] EgqxdrmMVYPFCXXJ4999-37-73 11:44:008[facility] WrurtoiFICRTGPHJ9316-90-00 11:44:000.5[facility] UtagrkbDSFYMZGGF6624-52-58 11:44:92564Bpdnrnxt JljaeniSEZGANXTK2172-12-10 11:44:0014[facility] MGMJXJLFT4795-48-18 11:44:003.8[facility] KpcqhsrFIOBCAJGN7993-21-40 11:44:001.0 [facility] CoevtdaQSNLMIJVA1614-01-71 11:44:00* Test Item Value Reference Range Interpretation Comments eGFR (test code = eGFR) 9 1 [facility] WtiwjjsVTKBLOPBK1690-59-73 09:36:001.5[facility] HermannCHEMISTRY 2012-07-02 09:36:007.1[facility] NenjsoeSAAIHHPSW2637-59-57 09:36:008[facility] XyglhzwEKPXWCDDW1760-49-98 09:36:001.0[facility] CukhvdxGVLMLJTNC7759-56-86 09:36:003.6[facility] YaohdcdSWRDRHAJX2363-87-62 09:36:05318Qepfwwes [place] MZXJTJAVH0511-59-24 09:36:000.4[facility] QwsehvyNSPJRNFPO0323-56-83 09:36:0021 [facility] NnmbmddXYVQSTZNA2220-20-93 09:36:0038[facility] HermannCHEMISTRY 2012-07-02 09:36:003.6[facility] QotihceFBDBGVPVN6900-89-54 09:36:007.2[facility] RxpmhueBOXKXHJPT5150-00-79 09:36:001.9[facility] McmcnetIROXDWMKR3282-38-31 09:36:00<0.02[facility] BysfpziGJLNFLFLC3458-64-11 09:36:000.7[facility] BCZGWPGKV9214-31-32 09:36:0048[facility] HpsbzbvWRZGNLTJG5314-75-02 00:28:00<1.1 [facility] OrpsjexTOLCXAYUW7472-21-87 00:28:00<0.5[facility] HermannCHEMISTRY 2012-07-02 00:28:0047[facility] WskrrswVYVEHKYSD6407-31-38 00:28:00<0.02[facility] RexifpoCSFRVVNARJ3736-71-65 04:00:004[facility] PbkcqcfYYCHNDDYFX9998-40-81 04:00:00Few /LPF *NA*(06/30/2012 23:00:00) [facility] MskgfppWEVECXEVRX5136-87-79 04:00:00Moderate /HPF *ABN*(06/30/2012 23:00:00) [facility]annURINALYSIS 2012-07-01 04:00:00>182[facility] KkumfefNKTNGMTLPV6030-03-52 04:00:00Negative *NA*(06/30/2012 23:00:00) [facility] CyrkcfpUOQJDUIKWQ9707-27-09 04:00:00Negative mg/dL *NA*(06/30/2012 23:00:00) [facility] FkccliuPMDIXELMPI4309-72-20 04:00:00 Negative (06/30/2012 23:00:00) [facility] VauhqxnXBGSJSLZEA5262-12-48 04:00:00 Negative (06/30/2012 23:00:00) [facility] XsdgxjxNDOPXSTQAK0710-82-10 04:00:00 Large *ABN*(06/30/2012 23:00:00) [facility] EzwjkdeOCPITTHBLO2737-29-97 04:00:00 Negative mg/dL *NA*(06/30/2012 23:00:00) [facility] ZqxfoknTKXLKCOMCU1570-67-11 04:00:00>=300 mg/dL *ABN*(06/30/2012 23:00:00) [facility] HermannURINALYSIS 2012-07-01 04:00:006.0[facility] DyngzzgLJZKZZTRAC2072-40-67 04:00:001.013[facility] FeezqxoLZBZHHYARG1394-17-04 04:00:00Marked *ABN*(06/30/2012 23:00:00) [facility] KcjssynXDLQYLISZ0872-13-31 01:45:0066[facility] ZppetvcYYSWGEKIM4288-70-50 01:45:00<0.02[facility] XregdcdBABPZMMXK1808-24-57 01:45:001.1[facility] SLKQXJCJT2317-92-31 01:45:001.7[facility] HermannBEDSIDE GLUCOSE NRVQDRC1927-91-35 21:37:0097[facility] HermannBEDSIDE GLUCOSE JVAFKSV6076-64-56 16:17:91265Hkaxddim HermannBEDSIDE GLUCOSE LXYIJCH9502-18-32 12:32:30699Axgldwyc HermannCHEMISTRY 2012-02-16 10:55:0094[facility] BvajizpRRFVCWIGU4143-46-28 10:55:004.4[facility] UfhuixtEXKFWMPMH6385-34-73 10:55:59485Vhquzrns DjooqwvNESAZXDIM9911-19-46 10:55:003.8[facility] GidvcfmLVMJTHCKU4985-82-99 10:55:0032[facility] WDBWAAFSY7860-23-04 10:55:0026[facility] YijmmlzAAJFKAWUW8756-05-70 10:55:008.3 [facility] CedxnemHMBPNDEIQ9000-79-44 10:55:0098[facility] HermannCHEMISTRY 2012-02-16 10:55:0017.4[facility] LnclzcvIXMXCUKYVV4627-87-05 10:55:60338Vkbtqiqg JudwifuTLWRQUPUXS7132-65-83 10:55:007.0[facility] SfbcvreCNCJHUGJLV8002-32-98 10:55:005.6[facility] YcuwqdsLMIWZGEIEP1859-49-40 10:55:002.95[facility] XFFYSGSIOV3434-72-29 10:55:0025.7[facility] RxvtqjqORTOLWGQNE1220-92-13 10:55:00 87.2[facility] NufxuqpNXEWURLXAY1658-30-92 10:55:008.4[facility] HermannHEMATOLOGY 2012-02-16 10:55:0032.7[facility] PgtitbqBROSZJDXXP9250-87-78 10:55:0017.9[facility] PmqfaioWQRVAJXQFT6214-91-76 10:55:00* Test Item Value Reference Range Interpretation Comments MCH (test code = MCH) 28.5 pg 27.0-31.0 N [facility] EpetyktSAUFFLIISD9644-65-84 10:55:0019.1[facility] HermannHEMATOLOGY 2012-02-16 10:55:0065.1[facility] XuzczipHHMTADYYSO8768-41-80 10:55:009.5[facility] IexjauwHAOVMIPITP4545-83-83 10:55:005.8[facility] PmfiwbpIYBPDVEMYS0442-39-96 10:55:000.5[facility] FhzkpuxOUDZZOUWLV5292-41-90 10:55:003.6[facility] TDLWCCKEDU0173-71-64 10:55:001.1[facility] OrmqfnyPXGOJWOZEZ3827-15-74 10:55:000.3 [facility] FafmfapLPHIXPWUTE1430-17-15 10:55:000.5[facility] HermannHEMATOLOGY 2012-02-16 10:55:000.0[facility] ZuestmqDGATVZQFC2775-94-27 09:47:007.3[facility] GkvnuvhWRGDIPHYW1656-63-32 09:47:002.9[facility] VtlehvlGNRCBGEQJ9126-30-06 09:47:008[facility] AbrcsgaFNYYAMKFK6177-25-11 09:47:000.6[facility] JJQWXJRSC0212-83-13 09:47:49599Mqpboviu MngoauoWWNKYHDXF4271-06-08 09:47:0010 [facility] JuyvjzqULVKFLPES0925-90-92 09:47:0092[facility] HermannCHEMISTRY 2012-02-15 09:47:008.7[facility] BoparnsCSRVWNTQV5569-55-30 09:47:0023[facility] ThzthaaAQCKZEGRA4626-73-47 09:47:005.1[facility] IujokboZULTDFYOH1508-11-79 09:47:0018.1[facility] NllwjmuGJCAJCVPK0810-23-54 09:47:000.7[facility] YFBWIXLTL3016-96-95 09:47:0010[facility] UwmnuhpZYLWLNXIH2305-32-76 09:47:004.4 [facility] BgqmekgXFCPODOKG3965-54-15 09:47:00* Test Item Value Reference Range Interpretation Comments eGFR (test code = eGFR) 8 1 [facility] PqpgriqYCFRFGZDL5489-72-30 09:47:72780Zzjtpcnh HermannCHEMISTRY 2012-02-15 09:47:005.8[facility] AlbpejuTGDJJHJNK3409-32-47 09:47:0057[facility] LioeyqbESNTCRRVY1220-40-73 09:47:64459Kfvvvmmm VzxldzfXYCTMCDYKP2964-20-77 09:47:006.8[facility] CrgswxeKVLTZZYKQE0398-30-90 09:47:00* Test Item Value Reference Range Interpretation Comments MCH (test code = MCH) 29.3 pg 27.0-31.0 N [facility] QgsvrsySDTWWSGGNF4654-48-58 09:47:03512Zpvhnzof HermannHEMATOLOGY 2012-02-15 09:47:0018.1[facility] AeqqojxSXSYOJQPKF4995-62-03 09:47:0033.9[facility] FwbmecdVNMQPLKXZD8614-06-06 09:47:0086.6[facility] RtbsbzlMYCTFOEUVF1529-26-84 09:47:0026.2[facility] CaepggvLCWPZTPHTT4608-22-03 09:47:007.1[facility] YUWQJGYNUD0226-05-46 09:47:008.9[facility] YxefjldTMMANIIEOZ6797-21-42 09:47:00 3.03[facility] RplwhgbLIZIUPSSHU1595-40-68 09:47:000.0[facility] HermannHEMATOLOGY 2012-02-15 09:47:001.1[facility] SfkmmffAQZUGJGGAI9141-64-96 09:47:000.4[facility] EntnyilYNMKJVZVLL3114-42-91 09:47:000.5[facility] VodholiNECFHITEEL4635-44-59 09:47:0070.9[facility] WsknxkrJYZSUAEHSV0165-61-49 09:47:000.3[facility] IUYQDUQIAM1120-83-67 09:47:005.0[facility] QyazxrnVQRLAGJYAB3807-51-75 09:47:00 15.3[facility] LhsukkfIPMMTTCRET4938-43-33 09:47:007.4[facility] HermannHEMATOLOGY 2012-02-15 09:47:006.1[facility] BcjfoyzRCASDFVKV2292-80-33 11:10:0050[facility] SkpvrxcWRARWOIHP9384-97-56 11:10:94681Vtwczpow HvbywdnODOUXXJHT0381-41-70 11:10:00* Test Item Value Reference Range Interpretation Comments eGFR (test code = eGFR) 10 1 [facility] JtvtvlvLDJHEXAII8327-39-89 11:10:0020.2[facility] HermannCHEMISTRY 2012-02-14 11:10:004.6[facility] NxsrkhbXZMLTTWCI9236-05-62 11:10:0010[facility] PburnojOLVFHOZPV4988-14-59 11:10:000.7[facility] ZoxoqvxXZJJLTENX2584-13-29 11:10:0016[facility] DdbyawcFZVPWAYTH0428-40-29 11:10:003.0[facility] JAAEVPYFI2902-39-97 11:10:000.4[facility] WtvwgvtTOSGDIMIN7938-52-41 11:10:94730 [facility] KxntuupCIOAQDBIO2094-78-11 11:10:0018[facility] HermannCHEMISTRY 2012-02-14 11:10:0094[facility] LpjzmccWTGJUUYAH5628-19-05 11:10:005.2[facility] IwjjdpwDBOTQNYXH4434-18-21 11:10:008.8[facility] AturnwuSUYYZKJFQ2798-32-58 11:10:0021[facility] VferrlpAMMFUGPDD1151-98-66 11:10:007.[facility] DNXRISOQH4835-62-42 11:10:004.9[facility] RhjvyicBTNPYVAPY1307-35-58 11:10:19505 [facility] LkzxtgoPHNDCCRQO0470-20-82 11:10:85811Ypmilmlb HermannCHEMISTRY 2012-02-14 11:10:0054[facility] TaizmjyUIHJBMIFVD0442-31-78 11:10:0018.4[facility] BdqotgsWZSVUEILZK9437-52-08 11:10:20993Bhabxjna GyehnlgCWJDVJIHKH9741-08-26 11:10:006.7[facility] NhdtivtMWXLGPPEUU1270-66-68 11:10:0033.3[facility] SZWNLYHQIV9327-53-50 11:10:00* Test Item Value Reference Range Interpretation Comments MCH (test code = MCH) 28.8 pg 27.0-31.0 N [facility] LntvgweGRIUBJEOKE9071-95-31 11:10:0086.6[facility] HermannHEMATOLOGY 2012-02-14 11:10:003.24[facility] OxnjhfzJILMTLDIYQ7382-21-04 11:10:009.4[facility] AlmirtzYOZDRSQXRV1842-61-38 11:10:009.3[facility] JlmqnctXXXLGGHREG8013-59-93 11:10:0028.1[facility] DkxsbgoPXKLSQSXCN8369-15-87 11:10:000.4[facility] GCFWNGKKVG1579-83-67 11:10:000.0[facility] UwqvnlyBRUCBQFPSO4733-30-90 11:10:000.4 [facility] HtefsfiREBUBUBQQV6723-52-06 11:10:007.3[facility] HermannHEMATOLOGY 2012-02-14 11:10:001.3[facility] NpqrbjdYHIUQBGPSU1142-64-33 11:10:000.3[facility] HtyecvhVPFKYZWATS7080-98-99 11:10:00Normal (02/14/2012 06:10:00) [facility] XtyzguuGXQKIDYXSC1036-26-31 11:10:00Normal (02/14/2012 06:10:00) [facility] TzoctlkCOLMPUAZNY7972-76-27 11:10:004.6[facility] WlurikfEYHNRIBEXI5124-40-25 11:10:0077.5[facility] IsnmewaXSHWGBZIUP7325-79-12 11:10:004.2[facility] ZWYQWSVNTC4651-60-53 11:10:0013.4[facility] HermannBODY XITWFZ4066-76-03 18:24:00 Abdomn *NA*(02/12/2012 13:24:00) [facility] HermannBODY DVKVHH6615-26-09 18:24:00 0.5[facility] HermannBODY ODYDXB7978-53-08 18:24:00Clear (02/12/2012 13:24:00) [facility] HermannBODY WLZKKB0082-36-08 18:24:66442Xmsnjsqh HermannBODY FLUIDS 2012-02-12 18:24:00Yellow (02/12/2012 13:24:00) [facility] HermannBODY FLUIDS 2012-02-12 18:24:0021[facility] HermannBODY WRWSNE9603-41-82 18:24:00Abdomn (02/12/2012 13:24:00) [facility]annBODY IQIDHH3206-00-45 18:24:005[facility] HermannBODY CBLGRI0946-27-26 18:24:005[facility] HermannBODY XTUOSJ5790-40-72 18:24:0070[facility] HermannBODY XAEDQS9729-96-37 18:24:00Occasional (02/12/2012 13:24:00) [facility]annBODY HIWPOA1469-86-57 18:24:0020[facility] HermannBODY EYWAAW1729-51-03 18:24:00Abdomn *NA*(02/12/2012 13:24:00) [facility]annBODY WPMGRW8617-79-59 18:24:006.2[facility] HermannBODY RYWWSH4577-90-59 18:24:00Abdomn *NA*(02/12/2012 13:24:00) [facility] HermannBODY LACHQD2830-31-87 18:24:50486 [facility] EpicwoxLPSNEMSBR7547-99-89 11:11:004.8[facility] HermannCHEMISTRY 2012-02-12 11:11:00* Test Item Value Reference Range Interpretation Comments eGFR (test code = eGFR) 13 1 [facility] BeiwjboNYJYMEJXR0345-35-99 01:00:85573Yphifgrp HermannCHEMISTRY 2012-02-01 01:00:0012[facility] EyzoqdrITMPPQEQK3045-45-85 01:00:002.9[facility] QfasxmmGCRAXYZMR7745-44-09 01:00:007.6[facility] BoraibhTIVCTFMRF9856-91-27 01:00:0015[facility] LpzckjzMMRINULRO8235-97-53 01:00:000.3[facility] BEEHHVUMO4342-11-50 01:00:000.6[facility] ZcycwtxRMUWTJBCL1198-73-79 01:00:004.7 [facility] AoajgwmJJHARPXOO1145-46-57 01:00:0010[facility] HermannHEMATOLOGY 2012-02-01 01:00:00Slight *ABN*(01/31/2012 20:00:00) [facility]annHEMATOLOGY 2012-02-01 01:00:00Normal (01/31/2012 20:00:00) [facility]annHEMATOLOGY 2012-02-01 01:00:00* Test Item Value Reference Range Interpretation Comments PTT (test code = PTT) 29.6 s 22.9-35.8 N [facility] CaekwreUFKKVBLEUY4548-17-20 01:00:00* Test Item Value Reference Range Interpretation Comments PT (test code = PT) 14.5 s 12.0-14.7 N [facility]ZlsbekeHMAWOGXCTU9229-47-97 01:00:001.13[facility] 2012-[facility]-01 00:06:00Negative (01/31/2012 19:06:00) [facility] 2012-02-01 00:06:00>=300 mg/dL *ABN*(01/31/2012 19:06:00) [facility] JTBPUXVNLD6424-12-31 00:06:00Negative *NA*(01/31/2012 19:06:00) [facility]neGezzeyzATBRFFWBJZ2949-26-36 00:06:00Negative (01/31/2012 19:06:00) [facility]neFyrvcifVNWOMDDTLC1984-81-64 00:06:00Large *ABN*(01/31/2012 19:06:00) [facility]neIpbhvnyBSISLOEAHD1121-19-42 00:06:00Positive *ABN*(01/31/2012 19:06:00) [facility]neQshfzotYARJVSYCYL9588-77-08 00:06:001.0[facility]URINALYS 2012-02-01 00:06:00Trace *ABN*(01/31/2012 19:06:00) [facility]UR[facility]ALYS 2012-02-01 00:06:00* Test Item Value Reference Range Interpretation Comments UA pH (test code = UA pH) 6.5 1 5.0-8.0 N [facility]neIonfbqnGXFAZHPSKZ8985-60-64 00:06:00Red *ABN*(01/31/2012 19:06:00) [facility]neDunaxmqVDHMOVLJCA2728-61-26 00:06:00Bloody *ABN*(01/31/2012 19:06:00) [facility]neAaaygbgDSOJWFLSST4969-25-77 00:06:00* Test Item Value Reference Range Interpretation Comments UA Spec Grav (test code = UA Spec Grav) 1.010 1 N [facility] Cle[facility]neOtlgefaRQGJFBEFWP6669-80-23 00:06:00Few /HPF (01/31/2012 19:06:00) [facility] JgcyzqoNVHXXPDUQK6466-82-69 00:06:00Packed *ABN*(01/31/2012 19:06:00) [facility] CfflkbtTCJAMWHBAZ5938-71-54 00:06:003-5 /HPF (01/31/2012 19:06:00) [facility] CigprkgBQCCHBJWWQ4426-99-19 00:06:00Few /LPF (01/31/2012 19:06:00) [facility] HixflnxBECUTZGQIG5408-34-94 00:06:00Performed (01/31/2012 19:06:00) [facility] HermannBEDSIDE GLUCOSE QOCWTQE6227-46-14 22:38:03122Zmihwtid [facility] BEDSIDE GLUCOSE FOEQCRE7114-75-56 16:33:82747Efnvhwsh KjtplvlHKTNMEOOE2019-59-03 14:07:0018[facility] DkpcfkmYTWHUNHHD1853-84-00 14:07:0058[facility] NQEQMKQMP6088-27-12 14:07:48201Nvrjlblv HwlqxapPYIGHTTPE7344-33-21 14:07:16854 [facility] YotdcqvVIXPPGISLS4831-43-27 14:07:000.5[facility] HermannHEMATOLOGY 2012-01-29 14:07:000.0[facility] ZutgvfeJIJYPUJQUE9301-48-30 14:07:008.8[facility] TvascotCUMQCVFMNS1599-21-86 14:07:006.0[facility] XhbsuqpVSPLKWIRCQ6199-56-68 14:07:000.3[facility] RmrsanzZXETULUZAB5891-36-17 14:07:008.6[facility] WKUNLAGLRI8157-54-94 14:07:006.4[facility] IryzuctJWMGSJYEJL8478-27-39 14:07:000.7 [facility] YhxfxmtBWXVFLTYVU7358-44-49 14:07:000.7[facility] HermannHEMATOLOGY 2012-01-29 14:07:0076.3[facility] YwjodxsYFDOPKZNST2494-97-03 14:07:007.9[facility] KsgjucrIAUIQKLRBD0599-93-58 14:07:0026.8[facility] SsoimxbORZQTFXWWR4999-49-11 14:07:0086.9[facility] BxpegsiPNJLAYUQOX4113-38-95 14:07:00* Test Item Value Reference Range Interpretation Comments MCH (test code = MCH) 28.3 pg 27.0-31.0 N [facility] JpaaxsdVFMJAZORIF4407-97-03 14:07:008.4[facility] HermannHEMATOLOGY 2012-01-29 14:07:008.7[facility] ZffeidfIJBEXQLZZT7524-11-73 14:07:003.08[facility] XhrwkeoISKCMPHENB3211-07-29 14:07:0018.1[facility] LiytehlFVCNWLCSHG5129-46-87 14:07:0032.5[facility] PbqtdxjKBTZCVSGBM8700-12-63 14:07:22592Aklkqqrl [place] BEDSIDE GLUCOSE LCKHRIL4985-66-03 13:30:50897Jrackcvt HermannHEMATOLOGY 2012-01-27 11:56:0074.0[facility] VjwacmkWQAZJBCDJW0927-14-50 11:56:0010.7[facility] MbdnelsJJFMJMTYHS3878-47-75 11:56:008.7[facility] AobhgocMWODDYSGJU6846-28-84 11:56:000.3[facility] VxxphzjFVXWOJDKJY2014-37-20 11:56:006.3[facility] XJPMYZTKBV7807-11-38 11:56:000.0[facility] DtehiluEVFTIFEDCX9018-03-14 11:56:000.5 [facility] OurxupaOZIWLFHPYT8850-09-33 11:56:006.1[facility] HermannHEMATOLOGY 2012-01-27 11:56:000.7[facility] QhtipbqIHVTBUWCQH9633-82-61 11:56:000.9[facility] OrecmrgFPNJTPFQJK2533-97-98 11:56:003.17[facility] UkqexybRKPWXUHYPB7688-83-19 11:56:009.1[facility] NkyathoGVTULIGEZP4584-13-77 11:56:00* Test Item Value Reference Range Interpretation Comments MCH (test code = MCH) 28.6 pg 27.0-31.0 N [facility] YstozglFUECRWTHMO1632-14-40 11:56:0087.4[facility] HermannHEMATOLOGY 2012-01-27 11:56:0027.7[facility] SoicnlsGWUPDHLVHM7920-70-80 11:56:0017.2[facility] OgqykweMRFYKSNCNT0934-43-77 11:56:86299Zcjizfmp KcquageLXYLYROUTL1016-68-83 11:56:0032.7[facility] PsnexxpTOYPVKAIYG9086-72-08 11:56:008.0[facility] IXDKWPNTPC7697-80-09 11:56:008.3[facility] HcbygysFXLKFCCND7401-74-20 11:07:004.0 [facility] OihfsegZYZTYRMJE5505-94-60 11:07:0017.6[facility] HermannCHEMISTRY 2012-01-27 11:07:008.3[facility] XslsockDINWFBOXJ7680-67-82 11:07:00* Test Item Value Reference Range Interpretation Comments eGFR (test code = eGFR) 13 1 [facility] BzgkdfsGJURPBNDW6382-79-99 11:07:003.8[facility] HermannCHEMISTRY 2012-01-27 11:07:0038[facility] NfcunytNRZIOQDXP8052-55-69 11:07:0096[facility] HvevaqzKIZNJNUPX7553-11-90 11:07:0026[facility] AgpstgfXNRTQKCSG7716-30-50 11:07:004.6[facility] RwpsyagYHIDGULCR2338-71-20 11:07:83152Fvsyrjod [place] BPVJADGSB8923-84-13 11:07:61921Vbgohdxu YewmthfTSZGUHNDKQ4541-27-67 22:45:00 Negative *NA*(01/26/2012 17:45:00) [facility] HdfvffrVELSRPTUV8197-91-06 10:40:00 14.4[facility] XdvobotLEXXAPIDZ4741-15-39 10:40:58542Vckkucna HermannCHEMISTRY 2012-01-24 10:40:0030[facility] CbmxbckJRAHQVOJI6744-94-53 10:40:33887Wzbhzvuj XpyqxzrSDOKCRNWN2785-73-38 10:40:008.0[facility] FdyaalySYSLHGXTA6330-82-00 10:40:0098[facility] LrgyiuiEAOZBZCAK2010-04-52 10:40:003.7[facility] COSDGSAXM3591-49-93 10:40:004.4[facility] DswilcfUXHMGYUXA5346-53-35 10:40:0031 [facility] CwcmjaqMUHJZYKCUY3584-50-58 10:40:000.0[facility] HermannHEMATOLOGY 2012-01-24 10:40:000.4[facility] XuyfudeNNDLTWEJSV2754-63-95 10:40:000.8[facility] FzozhruGHESEICHGY1093-36-78 10:40:000.8[facility] WbxmyftJTYSLHVDJX4608-50-06 10:40:006.2[facility] QpbhzgoXAIBOGTCKC8492-96-10 10:40:000.3[facility] UVUUHWPPVO1451-72-00 10:40:005.0[facility] XurbjdnDNRCEVIJXE7732-97-79 10:40:00 70.5[facility] ErlbchrBIOAZFBXBT1267-05-90 10:40:0011.6[facility] HermannHEMATOLOGY 2012-01-24 10:40:0011.4[facility] DelbqpjPWWYWOCJVT2596-77-46 10:40:0017.1[facility] YoptgcfRUCYSVUSUR2139-73-59 10:40:99380Jhgvmcii VoqpaerHVNALTYHOO5336-66-17 10:40:007.5[facility] KfyqbmnOMXGTGKWLZ2708-47-42 10:40:00* Test Item Value Reference Range Interpretation Comments MCH (test code = MCH) 28.3 pg 27.0-31.0 N [facility] HowavpxNPVKVPOCTX2058-12-97 10:40:0032.6[facility] HermannHEMATOLOGY 2012-01-24 10:40:008.7[facility] JicqptuHUNVKRHAFH7016-97-02 10:40:0026.6[facility] LvlbjoyITNGHXICLB8031-60-92 10:40:0086.8[facility] DetonehSAMVGMWGGF1969-58-27 10:40:007.0[facility] DjjmcuuLFYFYFLPDL3840-46-00 10:40:003.06[facility] BLOOD BANK ORKTOEM0818-81-39 13:35:00Product available 6(01/23/2012 08:35:00) [facility] YFECIDZ0575-46-71 13:35:00Negative (01/23/2012 08:35:00) [facility] MffojtaXTHQWSCXG9299-30-87 12:30:00* Test Item Value Reference Range Interpretation Comments eGFR (test code = eGFR) 12 1 [facility] NeloyouAUWRULISN4443-39-30 12:30:0014.5[facility] HermannCHEMISTRY 2012-01-23 12:30:22740Epvuhiny WmjmemaGUONXFUPW6701-42-03 12:30:0029[facility] KvjbscvJZETLTKVN4838-98-53 12:30:008.1[facility] ZdsjtrkUYERDHLJJ2986-62-96 12:30:004.5[facility] DnldvqmJYAXFZXOF3326-90-39 12:30:0099[facility] XOCROZBFC2576-35-03 12:30:0048[facility] IcdycxfZHZFISIPA7440-84-97 12:30:0081 [facility] PmqcbrlTNVUAPLDA8587-96-83 12:30:004.2[facility] HermannURINALYSIS 2012-01-22 14:25:00Few /HPF (01/22/2012 09:25:00) [facility]annURINALYSIS 2012-01-22 14:25:003-5 /HPF (01/22/2012 09:25:00) [facility]annURINALYSIS 2012-01-22 14:25:00Packed *ABN*(01/22/2012 09:25:00) [facility]annURINALYSIS 2012-01-22 14:25:00Few /LPF (01/22/2012 09:25:00) [facility]annURINALYSIS 2012-01-22 14:25:00Turbid *ABN*(01/22/2012 09:25:00) [facility]annURINALYSIS 2012-01-22 14:25:00* Test Item Value Reference Range Interpretation Comments UA Spec Grav (test code = UA Spec Grav) 1.015 1 N [facility] QbvonmgRHOQHGRQIF0728-50-15 14:25:00Moderate *ABN*(01/22/2012 09:25:00) [facility] VscgbkuIZNYUKXDYS9310-79-45 14:25:001.0[facility] HermannURINALYSIS 2012-01-22 14:25:00Large *ABN*(01/22/2012 09:25:00) [facility] HermannURINALYSIS 2012-01-22 14:25:00* Test Item Value Reference Range Interpretation Comments UA pH (test code = UA pH) 7.5 1 5.0-8.0 N [facility] AlgzmnzDQTXICFOLA0205-46-76 14:25:00>=300 mg/dL *ABN*(01/22/2012 09:25:00) [facility]NrdhwvyBIRVUQGDYV1929-83-07 14:25:00Negative (01/22/2012 09:25:00) [facility]entonGdvhyonAXUKTHFXJM3851-86-33 14:25:00Trace *ABN*(01/22/2012 09:25:00) [facility]entonGxqhoonQNLOCDMBIL5999-19-16 14:25:00Red *ABN*(01/22/2012 09:25:00) [facility]entonSisjbbuNWTQUDFGKO0370-79-82 14:25:00Positive *ABN*(01/22/2012 09:25:00) [facility] DentonOfwegthKASIIAIXQD1914-91-38 14:25:00 Negative 4(01/22/2012 09:25:00) [facility]entonXpwefzyFAAQVTPTH4058-46-35 10:00:003.5 [facility] DentonPijhacxAKIUOTXTR3798-01-62 10:00:00* Test Item Value Reference Range Interpretation Comments eGFR (test code = eGFR) 13 1 [facility] ZuzxbguBUASIVXUZ6156-28-09 10:20:002.3[facility] HermannCHEMISTRY 2012-01-20 10:20:005.3[facility] OtypqgmSRAOSLNKX2457-45-36 10:05:64078Yxjrnkdp DzbuiacDTKGSUNED6003-42-18 10:05:71670Cgsojktp HmqkihySRLAYCUGU6774-36-15 10:05:008[facility] GqbfzidRESYBSWYA6761-12-58 10:05:0030[facility] HermannCHEMISTRY 2012-01-18 10:05:65394Nxyefuoy PvxqsntVJJBWGDSFT3692-24-26 10:05:002.6[facility] LmlqribIOMHOLUKR6690-47-47 19:40:0040.3[facility] FhgnhqfZMJZRMHZR1792-19-51 19:40:0036[facility] AynnkocXPDMKAPNYT9412-81-39 19:40:000.2[facility] SAFUIGGXXI6215-20-28 19:40:00Negative (01/17/2012 14:40:00) [facility] VOLMTXIUMC0373-40-77 19:40:00Trace *ABN*(01/17/2012 14:40:00) [facility] AOYOWNWSSB9477-56-96 19:40:006-10 /HPF *ABN*(01/17/2012 14:40:00) [facility] DyszkkoBHHHDNPEWY1211-58-56 19:40:00Few /LPF (01/17/2012 14:40:00) [facility] InnogvmTLKNGMZOSW0670-16-44 19:40:00Packed *ABN*(01/17/2012 14:40:00) [facility] OcbyxzxFKELJXFMZB2941-83-82 19:40:00Few /LPF (01/17/2012 14:40:00) [facility] TkkjgtdYENGPMPEFH3752-91-27 19:40:00Few /HPF (01/17/2012 14:40:00) [facility] IzexylnFHIYTRJPNH0686-62-05 19:40:00* Test Item Value Reference Range Interpretation Comments UA pH (test code = UA pH) 6.5 1 5.0-8.0 N [facility] EjvfgxkADCTZIIFWR9326-05-73 19:40:00Slight Cloudy (01/17/2012 14:40:00) [facility] XgiphyxNDYGNYFVUJ3645-45-24 19:40:00* Test Item Value Reference Range Interpretation Comments UA Spec Grav (test code = UA Spec Grav) 1.010 1 N [facility] KfzvzdsMTLXKGDCOP3401-66-68 19:40:00Yellow *NA*(01/17/2012 14:40:00) [facility] JsplchxZPZHJHXVQZ5600-77-12 19:40:00>=300 mg/dL *ABN*(01/17/2012 14:40:00) [facility]entonDebdsivYLKGXNNUWW7571-09-50 19:40:00Negative *NA*(01/17/2012 14:40:00) [facility] DentonBcndoiaGSCSYYGHQH9313-42-34 19:40:00Negative (01/17/2012 14:40:00) [facility] DentonSgsgorvZVIOAQYXID7591-99-85 19:40:00Large *ABN*(01/17/2012 14:40:00) [facility] DentonCmndclzVCFGOEYLGW7083-41-27 19:40:00Negative *NA*(01/17/2012 14:40:00) [facility] DentonBuwctezQYOPNNQNQB2587-42-79 10:10:00Slight (01/17/2012 05:10:00) [facility] DentonDktyxpnQPRXZPKOPZ5910-60-55 10:10:00Normal (01/17/2012 05:10:00) [facility] DentonannBLMission Bicycle Company [facility] LLDCWMC2493-21-80 17:48:00Product available 7(01/15/2012 12:48:00) [facility] [facility]entonGwfjfxgDHMAHJEEBB5397-83-50 12:07:00 3.8[facility] MonroeArch[facility] GPCEFJG7670-59-42 22:05:00Product available 8(01/14/2012 17:05:00) [facility]entonannBLM[facility] [employer] [facility] OTJRXXR1377-51-98 15:15:00 Negative (01/14/2012 10:15:00) [facility] DentonBagjyofMZZXFMGGRY6699-92-55 11:20:00 Normal (01/14/2012 06:20:00) [facility] FdwzrzoQQVQXYRKPG5531-81-61 11:20:00 Slight (01/14/2012 06:20:00) [facility] IbvpdotGAUNOZMBGD3398-46-56 11:20:00 Slight (01/14/2012 06:20:00) [facility] DentonBiqcrjxCTQJTUMZZO8807-17-52 11:20:004.3 [facility] QbfgxpdAWHMESNKT5571-70-16 10:50:002.1[facility] HermannIMMUNOLOGY 2012-01-11 09:52:00Negative *NA*(01/11/2012 04:52:00) [facility] METWKZVGQG1628-56-96 09:52:00Negative *NA*(01/11/2012 04:52:00) [facility] MqgoxbrEWGPDEPJUF4887-38-05 09:52:00Negative *NA*(01/11/2012 04:52:00) [facility] DldwxymWCSJDLXFUX6581-76-83 09:52:00Negative *NA*(01/11/2012 04:52:00) [facility] AtwltlyTBXZQIAMF0754-99-92 23:53:000.5[facility] KyhcqfoLGMXRSYVA2624-05-25 23:53:00<0.02[facility] JwculqzPVYDICNIV9992-04-72 23:53:000.9[facility] HKLRAMTKZ6584-12-65 23:53:30729Ztjswguk NconquvCCVPGHZSVU2710-30-49 23:53:003.68 [facility] AjrjxyxDMSQSZNPN4334-22-63 21:12:0021.0[facility] HermannCHEMISTRY 2012-01-10 21:12:004.0[facility] QlzvfvsQWTMXIZEV8793-49-12 21:12:00Positive (01/10/2012 16:12:00) [facility] GesxzdaSEUXNRQLP3907-03-74 21:12:00Cpap (01/10/2012 16:12:00) [facility] TlgegmgYZOOZFQWS3451-16-85 21:12:0037.0[facility] AxtciywODLVICNLO5433-01-94 21:12:00Right Ra (01/10/2012 16:12:00) [facility] IhqqlrcZBGZSKXJX9534-47-14 21:12:0041[facility] PcgrpqiDQWSHLTKT5795-83-63 21:12:0075[facility] IxlieoyDRWRJWPTN3533-08-01 21:12:0015[facility] POODABGQK8629-53-10 21:12:00-11[facility] DxsnhlsNERAPDJGN3366-90-53 21:12:007.21 [facility] SvhmzrxYWYJZXAPP4865-57-70 21:12:0091.4[facility] HermannCHEMISTRY 2012-01-09 10:45:000.93[facility] JplijtkYZXCEFHBG3417-90-10 10:45:001.01[facility] GlxhrceODQDDVZHK2867-11-89 10:45:004.04[facility] MryocjnHYBBUJJEF4814-45-94 10:45:003.72[facility] ZbfybveNIBRXPKOG9963-88-05 10:45:0014[facility] HKLMMCYRA2948-64-03 10:45:000.6[facility] YapqqzrXJJHIJLVC9258-99-74 10:45:004.1 [facility] NxnmykxDGIWPDUMK4525-91-26 10:45:005[facility] EtdxzhuBMDKYUPEP8111-33-92 10:45:0092[facility] MnoughpNRVZCLLGQ3800-21-11 10:45:002.3[facility] GDIUBMPDH7111-77-05 10:45:006.4[facility] RcicslgJHAVEESYD3215-42-73 10:45:009 [facility] MkskpswTYWDIDILR4707-24-97 10:45:000.4[facility] HermannCHEMISTRY 2012-01-08 20:00:000.3[facility] IchadgrHZFXGDJLS1051-79-67 20:00:000.2[facility] BwzmxxrMCWOKNWUA0008-56-55 20:00:000.1[facility] JrbtmxjXAKFOGSCC4953-02-83 20:00:0019.5[facility] SxycijoLKTYNHSNK1419-35-39 20:00:79384Ldmdqkth [place] SZHTZFKIQ4247-11-05 20:00:0055[facility] SjomtpkNLNVSSCUV7063-30-51 20:00:0011.9 [facility] PwvjltjCCDFJVDPY0003-23-89 20:00:53395Ujzbsudz HermannCHEMISTRY 2012-01-08 20:00:0012[facility] SiqeqmkJQQXILUML2060-21-72 20:00:83681Gwbjyyim ZtorjcsEAKRQUIAL4564-85-66 20:00:0042[facility] ArzsbwuIUCNUROSP7448-64-39 20:00:86581Knhnyegk CvwrdngXAXEKPEURY1455-10-49 20:00:51948Mrlnnebf [place] GDQMOHBZE7156-89-43 10:10:0020.1[facility] ZmuyphmUFHSFEXPM9963-39-15 10:10:002.4 [facility] IiqpxsdAJLBTZLIIK0349-41-65 10:10:00Normal (01/08/2012 05:10:00) [facility] WqjihqrWSXIAORZLD9551-54-90 10:10:00Normal (01/08/2012 05:10:00) [facility] FpywysgPVIBKKWDX2870-16-03 10:10:0029.1[facility] HermannCHEMISTRY 2012-01-06 08:15:006.4[facility] NvdzrcaHDDKJIIYQ9927-49-74 08:15:000.2[facility] RmldikpBTEUSGKEX8970-36-78 08:15:007[facility] LoygjamZRGBYGVYG4552-11-25 08:15:00 101[facility] MvjbbdjGWKPIRWJW1008-97-24 08:15:0013[facility] HermannCHEMISTRY 2012-01-06 08:15:002.4[facility] ThcmyzfSJMLVSXHH2066-61-75 08:15:000.6[facility] WmnavrbDAVLJAVGQ0530-37-29 08:15:0015[facility] VrrxsstWUPGZVHWT4540-21-72 08:15:004.0[facility] LibgnqrOAGHXEQFK6880-75-09 08:15:0069.6[facility] IKJDCYQXLP2434-11-48 18:06:001.16[facility] RxgshvaNRKOQFGLHE8504-02-72 18:06:00* Test Item Value Reference Range Interpretation Comments PT (test code = PT) 14.8 s 12.0-14.7 H [facility]annBL[facility]OD BANK GMSJXSS4539-22-50 16:46:00Positive 5(01/05/2012 11:46:00) [facility] FdkvcqzHQJMTJHHS9378-50-23 09:49:56073Chrjpvpa [place] RZNPQOSCZA1837-55-36 18:00:00Few /HPF *ABN*(01/04/2012 13:00:00) [facility] XegbmzrOAILUEMFLY3512-70-62 18:00:00Few /HPF *ABN*(01/04/2012 13:00:00) [facility] AlqzmozZAENWKPQBK1418-98-05 18:00:0051-100 /HPF *ABN*(01/04/2012 13:00:00) [facility]entonBbdtzupUVPRULYLIC6498-55-64 18:00:00Few /HPF (01/04/2012 13:00:00) [facility] DentonDcysvatIAIUDOOMBL1062-00-79 18:00:00Few /LPF (01/04/2012 13:00:00) [facility] DentonUyuzlckXLSORBWCLA7883-41-34 18:00:003-5 /HPF (01/04/2012 13:00:00) [facility] DentonEgskpumHUBIQEWUGK4833-27-20 18:00:00Negative (01/04/2012 13:00:00) [facility] DentonPjkpatlNRPAIJHWSF7328-34-32 18:00:000.2[facility] ITMNYZMHLA3039-04-98 18:00:00Negative (01/04/2012 13:00:00) [facility] XNVQRSNAPN6620-47-64 18:00:00* Test Item Value Reference Range Interpretation Comments UA pH (test code = UA pH) 6.0 1 5.0-8.0 N [facility] DentonXxudrscGNWVIOFNTF5178-47-36 18:00:00* Test Item Value Reference Range Interpretation Comments UA Spec Grav (test code = UA Spec Grav) 1.025 1 N [facility] DentonVvqsfdeDHINDKBFQH6806-91-36 18:00:00Clear (01/04/2012 13:00:00) [facility] DentonKbquazxVMENNBQTQA6132-16-91 18:00:00Yellow *NA*(01/04/2012 13:00:00) [facility] DentonOmapmlnHNEATGPGGZ1946-15-88 18:00:00Large *ABN*(01/04/2012 13:00:00) [facility] DentonYxlvmhcMNTPDRJBHJ6702-93-04 18:00:00Negative *NA*(01/04/2012 13:00:00) [facility]neGygfencNBDVWPOOYY9048-07-71 18:00:00Negative *NA*(01/04/2012 13:00:00) [facility] DentonNnzbtrvZUOEQVETNS1551-76-73 18:00:00>=300 mg/dL *ABN*(01/04/2012 13:00:00) [facility] DentonOwwvxjrSSPBUWAZMS8080-38-81 18:00:79081 mg/dL *ABN*(01/04/2012 13:00:00) [facility] CvnpqlaKLMTNSDXX8182-66-79 12:44:0016 [facility] VgqfshqMTXHOAEGZ6712-43-94 12:44:000.7[facility] HermannCHEMISTRY 2012-01-04 12:44:68165Nlqxflds FoaaunrFIZIDKIDE8172-10-45 12:44:003.9[facility] QqoutduFPLAMDZFE5647-58-63 12:44:009[facility] PwbpofiDRQDNJOIE1269-36-21 12:44:00 2.8[facility] FgzpcvgGDXYTYFOZ1601-81-85 12:44:006.7[facility] HermannCHEMISTRY 2012-01-04 12:44:000.2[facility] EvrelgrREOORPQUG6221-05-88 12:44:000.1[facility] NxqqoogQAQZHVQJAK6434-52-77 12:44:00<10[facility] DujnidhQUGZECVXW9013-99-98 12:14:0019[facility] UruxjpaEIIFJTCAV2549-28-46 11:00:0041[facility] OBJGPKLQNJ2110-43-38 05:30:61696Dlscqjku DjyqfvrUWLEBGEQPG5775-61-71 12:44:00 Normal (01/01/2012 06:44:00) [facility] PopjjfzJOAXAHFQBJ0323-97-30 12:44:00 Negative (01/01/2012 06:44:00) [facility] PmdyilfIFMBGXIUYQ9427-51-00 12:44:00 Negative (01/01/2012 06:44:00) [facility] RxgcdozXDBQSUBZJH9085-55-86 12:44:006.2 [facility] JbixzztKCTOLCJTMT3182-62-08 12:44:0047.4[facility] HermannIMMUNOLOGY 2012-01-01 12:44:002.94[facility] MtoykfgDUHDUTQLTX0262-67-36 12:44:0016.2[facility] SfihpxsPFXNZDGZSS2748-80-91 12:44:0015.2[facility] WrymkxfFLMUDVLJUR9414-68-84 12:44:0016.0[facility] ZrmamscBLYIAQNTCS6126-19-36 12:44:005.2[facility] KGFEVVIJYG5132-22-04 12:44:001.00[facility] NcktfqrTYSZMNZUFV6562-86-98 12:44:00 0.94[facility] VsiqwksJDOITZJXVP0116-66-49 12:44:000.99[facility] HermannIMMUNOLOGY 2012-01-01 12:44:000.32[facility] CkqcdjpVWCAYZRTNR2389-00-84 12:44:29290Rooviady RqylxhvBGOUEQQVBI7711-43-15 12:44:0039[facility] QwqfveaCMGSFUNIOY5602-73-37 12:44:00Negative (01/01/2012 06:44:00) [facility] EmvpcplQQMTZNKLI7513-20-06 23:28:001.6[facility] PvtctmfZYCFIBCLQ9758-41-05 23:28:33363.6[facility] QFGTYAMWS0865-02-10 23:28:22175.8[facility] MyxjmdyNQZUAVSNXO5655-57-20 15:45:00 Negative *NA*(12/31/2011 09:45:00) [facility] KhfdmlkGXSOTRYDBA2527-34-03 15:45:00Negative *NA*(12/31/2011 09:45:00) [facility] OfnpzfbGBNLVTTJTT6133-18-42 15:45:00Negative *NA*(12/31/2011 09:45:00) [facility] GisnkfcLXZJRCMLEU0267-03-36 03:00:000.97[facility] CtnwuyaJINRWUNDRS6636-51-00 03:00:00* Test Item Value Reference Range Interpretation Comments PTT (test code = PTT) 35.6 s 22.9-35.8 N [facility] GdcmesuMSSQONCGOA9992-79-40 03:00:00* Test Item Value Reference Range Interpretation Comments PT (test code = PT) 12.9 s 12.0-14.7 N [facility] [address] [place], [place] [id number] Patient Name: TAI GRANT MR #: [id number] : 1960 Age/Sex: 57/F Req #: [id number] Adm Physician: CIARA MARINO MD Ordered by: CIARA MARINO MD Report #: [id number] Location: MED/SURG2 Room/Bed: [facility] Procedure: [id number] CT/ CT BRAIN WO Exam Date: 03/20/18 Exam Time: 1145 REPORT STATUS: Signed Exam: Head CT without contrast History: Trauma, fa ll Comparison studies: Head CT 01/14/2018 and 11/05/2016 Technique: Axia l images were obtained from the skull base to the vertex. Coronal and sagittal images reconstructed from the axial data. Intravenous contrast: None Fin dings: Scalp: No abnormalities. Bones: No fractures, blastic or lytic les ions. Brain sulci: Appropriate for age. Ventricles: Normal in size and co nfiguration. No hydrocephalus. Extra-axial spaces: No masses, no fluid collect ion. Parenchyma: No abnormal densities. No masses, acute hemorrhage, acute or chronic vascular insults. Sellar/suprasellar region: No abnormali ties. Craniocervical junction: Patent foramen magnum. No Chiari one malformati on. Incidental findings: Atherosclerotic calcifications in the carotid s iphons. Interval left lens changes when compared to the previous exam, possibl y related to previous cataract surgery/intraocular lens placement (evaluation is limited due to motion artifacts). Findings could be correlated with ophthal mologic history and exam. IMPRESSION: No acute abnormalities. Signed by: Dr. Orlin Mcgarry M.D. on 03/20/2018 1:38 PM Dictated By: VILLA MCGARRY MD 7622 T ranscribed By: ROBI on 03/20/18 4487 COPY TO: CIARA MARINO MD [facility] [address] [place], [place], [place] [address] Patient Name: TAI GRANT MR #: [id number] : 1960 Age/Sex: 57/F Req #: [id number] Adm Physician: CIARA MARINO MD Ordered by: CIARA MARINO MD Report #: [id number] Location: [facility] Room/Bed: [place] [address] Procedure: [id number] DX/ CHEST SINGLE (PORTABLE) Exam Date: Exam Time: REPORT STATUS: Signed EXAMINATION: CHEST SINGLE (PORTABLE) INDICA TION: COMPARISON: Chest radiograph 12/23/2017 FINDINGS: AP view TUBES and LINES: None. LUNGS: Lungs are well inflated. Ce ntral congestion and interstitial edema. PLEURA: No pleural effusion or pn eumothorax. HEART AND MEDIASTINUM: Stable mild enlargement of the cardiac silhouette. BONES AND SOFT TISSUES: No acute osseous lesion. Soft tis sues are unremarkable. UPPER ABDOMEN: No free air under the diaphragm. IMPRESSION: Cardiomegaly with interstitial edema. Signed by: Wilfred Beltran MD on 03/19/2018 1:54 PM Dictated By: STEVEN BELTRAN MD 135 Transcribed By: COM LARKIN on 03/19/18 135 COPY TO: CIARA MARINO MD ANKLE 3 + VIEWS RIGHT [place] [address] Patient Name: TAI GRANT MR #: [id number] : 1960 Age/Sex: 57/F Req #: [id number] Adm Physician: Ordered by: FARAZ BUSTILLO MD Report #: [id number] Location: ER Room/Bed: Procedure: [id number] DX/ANKLE 3 + VIEWS RIGHT Exam Date: 03/19/18 Exam Time: [address] ATUS: Signed EXAM: ANKLE 3 + VIEWS RIGHT, AP, lateral and oblique INDICATIO N: Huge wound on back of ankle COMPARISON: None FINDINGS: BONES: No acute fractures. JOINTS: No malalignment. SOFT TISSUES: Soft tissu e swelling of the ankle. Soft tissue defect posterior to the Achilles tendon. IMPRESSION: No radiographic evidence of osteomyelitis. Signed by: Dr. Marcia Stack M.D. on 03/19/2018 6:36 AM Dictated By: MARCIA OLEA MD Transcribed By: ROBI on 03/19/18635 COPY TO: FARAZ BUSTILLO MD CHEST 2 VIEWS [place] [address] Patient Name: TAI GRANT MR #: [id number] : 1960 Age/Sex: 57/F Req #: [id number] Adm Physician: Ordered by: JASPREET JEREZ MD, MD Report #: [id number] Location: [facility] Room/Bed: Procedure: [id number] DX/CHEST 2 VIEWS Exam D ate: Exam Time: REPORT STATUS: Signed PROC EDURE: Frontal and lateral views of the chest. COMPARISON: 12/23/17 INDICATIONS: PRE-OP FINDINGS: Lines/tubes: None. Lungs: Th e lungs are well inflated and clear. There is no evidence of pneumonia or pul monary edema. Pleura: There is no pleural effusion or pneumothorax. Heart and mediastinum: The heart and the mediastinum are normal. Aorta is m ildly tortuous. Unchanged mild thickening of the right paratracheal stripe. Bones: No acute bony abnormality. IMPRESSION: 1. No acute ca rdiopulmonary disease. Dictated by: Marianne Bernard M.D. on 02/04/2018 at 1 3:23 Electronically approved by: Marianne Bernard M.D. on 02/04/2018 at 13: 23 Dictated By: MARIANNE BERNARD MD 1323 Transcribed By: EVELYNE on 02/04/18 1323 CO PY TO: JASPREET JEREZ MRI ANKLE RIGHT WO [place] [address] Patient Name: TAI GRANT MR #: [id number] : 1960 Age/Sex: 57/F Req #: [id number] Adm Physician: Ordered by: ADRIENNE VALLES MD Report #: [id number] Location: MRI Room/Bed: Procedure: [id number] MRI/MRI ANKLE RIGHT WO Ex am Date: Exam Time: REPORT STATUS: Signed TECHNIQUE: Magnetic resonance imaging of the RIGHT ANKLE was performed WITHOUT injected contrast. COMPARISON: None available. HISTORY: Right ankle p ain FINDINGS: LIGAMENTS: Medial Complex: Intact Lateral C omplex: Intact, including the tibiofibular ligaments. TENDONS: Medi al: Intact Lateral: Intact Anterior: Intact Achilles: Complete tear of the distal Achilles tendon from the insertion with 3.5 cm pro ximal retraction. Underlying Achilles tendinopathy. BONES: Scattered aviva a within the hindfoot. No acute fracture or osteonecrosis. JOINTS: Cartilage: Ankle, midfoot, and hindfoot degenerative arthrosis. Othe r: Fluid within the joints is within physiologic limits. SOFT TISSUES: Thickening of the plantar fascia without edema. IMPRESSION: Compl ete tear of the distal Achilles tendon from the insertion with underlying tend inosis. 3.5 cm retraction. Signed by: Dr. Lexi Arteaga M.D. on 02/02/2018 8:13 AM Dictated By: LEXI ARTEAGA MD 2 Transcribed By: ROBI on 02/02/18812 COPY TO: ADRIENNE VALLES MD CT BRAIN WO [place] [address] Patient Name: TAI GRANT MR #: [id number] : 1960 Age/Sex: 57/F Req #: [id number] Adm Physician: Ordered by: LEONIE REILLY MD Report #: [id number] Location: ER Room/Bed: Procedure: [id number] CT/CT BRAIN WO Exam Date: 12/24 01/09 Exam Time: 2330 REPORT STATUS: Signed E XAMINATION: Head CT without contrast. HISTORY:Fall. COMPARISON:CT brain from 11/05/2016. TECHNIQUE: Multidetector axial images were obtained from the foramen magnum to the vertex without contrast. The images were recons tructed using brain and bone algorithms. Thin section brain images were refor matted into coronal and sagittal planes. Intravenous contrast: None IMAGE QUALITY: Acceptable. FINDINGS: Skull/scalp: No lytic or blasti c. lesions. No surgical changes. Parenchyma: No abnormal density. No ac [place] hemorrhage, mass or acute major vascular territorial infarct. Arteries : No density suggestive of thrombosis. Dural sinuses: No abnormal densi ty suggestive of thrombosis. Ventricles: No hydrocephalus or displacement . Extra-axial spaces: No abnormal density. Brain volume: Normal fo r age. Craniocervical junction: No mass, Chiari malformation, or basilar invagination. Sella: No mass. Paranasal/mastoid sinuses: Imaged po rtions unremarkable. IMPRESSION: No intracranial abnormality. Signed by: Dr. Harvey Joseph M.D. on 01/15/2018 1:08 AM Dictated By: HARVEY JOSEPH MD 7 Trans cribed By: ROBI on 01/15/18107 COPY TO: LEONIE REILLY MD CT CERVICAL SPINE WO [place] [address] Patient Name: TAI GRANT MR #: [id number] : 1960 Age/Sex: 57/F Req #: [id number] Adm Physician: Ordered by: LEOINE REILLY MD Report #: [id number] Location: ER Room/Bed: Procedure: [id number] CT/CT CERVICAL SPINE WO Exam D ate: 01/14/18 Exam Time: 2330 REPORT STATUS: Si gned History: Fall. Comparison studies: None Technique: Axial im ages were obtained through the cervical region.. Coronal and sagittal images r econstructed from the axial data.. Intravenous contrast: None Findings: Fractures: None. Soft tissue injuries: None. Atlantoaxial articulatio n: Intact. Alignment: Loss of normal cervical lordosis is either positional or due to muscle spasm. No scoliosis. Cervicomedullary junction: No abnormalit ies. The foramen magnum is patent. Soft tissues: No abnormalities. Verte brae: No fractures, infection or neoplasm. Nonspecific 1.4 x 1 cm lytic les ion in the right transverse process of C7. Degenerative changes: Mild de generative disc disease at C6-C7. IMPRESSION: 1. No acute cervical sp ine fracture. Loss of normal cervical lordosis is either positional or due to muscle spasm. 2. Ligament, spinal cord and or vascular abnormalities canno t be excluded on the basis of this examination. Signed by: Dr. Finn Joseph M.D. on 01/15/2018 1:09 AM Dictated By: HARVEY JOSEPH MD E lectronically Signed By: HARVEY JOSEPH MD on 01/15/18108 Transcribed By: GREG GARCIA on 01/15/18108 COPY TO: LEONIE REILLY MD ANKLE 3 + VIEWS RIGHT [place] [address] Patient Name: TAI GRANT MR #: [id number] : 1960 Age/Sex: 57/F Req #: [id number] Adm Physician: Ordered by: LEONIE REILLY MD Report #: [id number] Location: ER Room/Bed: Procedure: [id number] DX/ANKLE 3 + VIEWS RIGHT Exam Date: 01/14/18 Exam Time: 2345 REPORT STATUS: S igned TAI GRANT D 1960 DATE OF EXAM: 01/15/2018 EXA M: Right ankle x-ray, AP, lateral and oblique INDICATION: Fall right ankle benjamin n COMPARISON: None FINDINGS: BONES: No acute fractures. JOINTS: No malalignment. SOFT TISSUES: Soft tissue swelling of the ankle IMPRESSION: Soft tissue swelling of the right ankle without underlying fractur e. Dictated by Dr. Stack January 15, 2018 at 1226 hours. Signed by: Dr. Marcia Stack M.D. on 01/15/2018 1:15 AM Dictated By: MARCIA OLEA MD 4 Transcribed By: ROBI on 01/15/18114 COPY TO: LEONIE REILLY MD ANKLE 3+ VIEWS LEFT [place] [address] Patient Name: TAI GRANT MR #: [id number] : 1960 Age/Sex: 57/F Req #: [id number] Adm Physician: Ordered by: VICKY CABALLERO DPVijay Report #: [id number] Location: [facility] Room/Bed: Procedure: [id number] DX/ANKLE 3+ VIEWS LEFT Exa m Date: 12/31/17 Exam Time: 1721 REPORT STATUS: Signed PROCEDURE: ANKLE 3+ VIEWS LEFT INDICATION: Left ankle fracture. COMPARISON: 11/19/17 FINDINGS: Redemonstration of distal left malleo lar fracture line with no change in alignment. Healed medial malleolar frac ture. No soft tissue swelling. Ankle mortise is intact. CONCLUSION: No interval change from prior x-ray. Dictated by: Marianne Bernard M.D. on 12/31/2017 at 18:00 Electronically approved by: Liza Birch on 12/31/2017 at 18:00 Dictated By: MARIANNE BERNARD MD Electr onically Signed By: MARIANNE BERNARD MD on 12/31/17 1800 Transcribed By: EVELYNE on 12/31/17 1800 COPY TO: VICKY CABALLERO DPM CHEST SINGLE (PORTABLE) [place] [address] Patient Name: TAI GRANT MR #: [id number] : 1960 Age/Sex: 57/F Req #: [id number] Adm Physician: CIARA MARINO MD Ordered by: CIARA MARINO MD Report #: [id number] Location: [facility] Room/Bed: [place] [address] Procedure: [id number] DX/ CHEST SINGLE (PORTABLE) Exam Date: 12/23/17 Exam Sunil e: 0435 REPORT STATUS: Signed EXAM: CHEST SINGLE (PORTABLE), AP 1 view INDICATION: Pulmonary edema COMPARISON: AP view of the chest December 22 FINDINGS: LINES/TUBES: None LUNGS: Stable interstitial edema/vasc ular congestion PLEURA: No effusions or pneumothorax. HEART AND MEDIAS TINUM: Stable mild enlargement of the cardiomediastinal silhouette. BONES AND SOFT TISSUES: No acute findings. IMPRESSION: No acute thoracic abno rmality. Signed by: Dr. Marcia Stack M.D. on 12/23/2017 5:09 AM Dictated By: MARCIA STACK MD 8 Transcribed By: ROBI on 12/23/17508 COPY TO: CIARA MARINO MD CHEST SINGLE (PORTABLE) [facility] [address] [place] [address] Patient Name: TAI GRANT MR #: [id number] : 1960 Age/Sex: 57/F Req #: [id number] Adm Physician: Ordered by: WELLINGTON CALDWELL MANAGER FAMILY Report #: [id number] Location: ER Room/Bed: Procedure: [id number] DX/CHEST SINGLE (PORTABLE) E xam Date: 12/22/17 Exam Time: 1115 REPORT STATU S: Signed PROCEDURE: CHEST SINGLE (PORTABLE) COMPARISON: 2 view chest 06/21 INDICATIONS: HYPERKALEMIA FINDINGS: Stable cardiomegaly. Pul monary vascular markings are prominent, increased compared previous exam. Sub tle ground glass opacities throughout each lung. No evidence of infiltrate. Costophrenic angles are sharp. No pneumothorax. No focal osseous lesi ons. CONCLUSION: Cardiomegaly and pulmonary vascular congestion. A component of pulmonary edema is suspected. Dictated by: Vibha Gupta M.D. on 12/22/2017 at 12:10 Electronically approved by: Vibha Gupta M.D. on 12/22/2017 at 12:10 Dictated By: CATHERINE GUPTA MD 121 0 Transcribed By: EVELYNE on 12/22/17 1210 COPY TO: WELLINGTON [employer] MANAGER FAMILY ANKLE 3+ VIEWS LEFT [facility] [address] [place] [address] Patient Name: TAI GRANT MR #: [id number] : 1960 Age/Sex: 57/F Req #: [id number] Adm Physician: Ordered by: VICKY CABALLEROM Report #: [id number] Location: RAD Room/Bed: Procedure: [id number] DX/ANKLE 3+ VIEWS LEFT Exa m Date: 11/19/17 Exam Time: 1705 REPORT STATUS: Signed PROCEDURE: ANKLE 3+ VIEWS LEFT TECHNIQUE: 3 views of the left a nkle (AP, lateral, and oblique) INDICATION: Followup left ankle fracture. COMPARISON: Multiple priors, most recently 09/21/2018 and 10/26/2017. FIND INGS: Left distal malleolar fracture with no change in healing or alignment. Healed fracture of the medial malleolus, unchanged. No new fractures. Joint spaces are intact. Talar dome is intact. CONCLUSION: No significant inte rval change. Dictated by: Benny Mejia M.D. on 11/19/2017 at 18 :26 Electronically approved by: Benny Mejia M.D. on 11/19/2017 at 18: 26 Dictated By: BENNY MEJIA MD 25 Transcribed By: EVELYNE on 11/19/171825 COPY TO: VICKY CABALLERO DPM ANKLE 3+ VIEWS LEFT [address] [address] Patient Name: TAI GRANT MR #: [id number] : 1960 Age/Sex: 57/F Req #: [id number] Adm Physician: Ordered by: VICKY CABALLERO DPM Report #: [id number] Location: RAD Room/Bed: Procedure: [id number] DX/ANKLE 3+ VIEWS LEFT Exa m Date: 10/26/17 Exam Time: 1230 REPORT STATUS: Signed PROCEDURE: ANKLE 3+ VIEWS LEFT TECHNIQUE: AP, oblique, and late ral views of the left ankle INDICATION: Fracture followup COMPARISON: Le ft ankle radiographs 09/21/2017. FINDINGS: No significant interval tolbert e in healing or alignment since the distal left malleolus fracture. Healed fr acture the medial malleolus is also grossly unchanged. Tibial plafond and chasidy ar dome are intact. No new fractures. Joint spaces and soft tissues are unrem arkable. CONCLUSION: No significant interval change in healing or al ignment of the incompletely healed lateral malleolar fracture compared to . Dictated by: Steven Beltran M.D. on 10/26/2017 at 12:52 Electronically approved by: Steven Beltran M.D. on 10/26/2017 at 12:52 Dictated By: STEVEN BELTRAN MD 1252 Transcribed By: EVELYNE on 10/26/17 1252 COPY TO: VICKY CARLOS DPM ANKLE 3+ VIEWS LEFT [place] [address] Patient Name: TAI GRANT MR #: [id number] : 1960 Age/Sex: 57/F Req #: [id number] Adm Physician: Ordered by: VICKY CABALLERO DPM Report #: [id number] Location: [facility] Room/Bed: Procedure: [id number] DX/ANKLE 3+ VIEWS LEFT Exa m Date: 09/21/17 Exam Time: 0940 REPORT STATUS: Signed PROCEDURE: ANKLE 3+ VIEWS LEFT INDICATION: Trauma COMPARISON: Bilateral ankle radiographs 08/27/2017. FINDINGS: No appreciable inter rosangela change in the appearance of the previously described incompletely healed fracture of the distal aspect of the lateral malleolus. Healed fracture of th e medial malleolus is similarly unchanged. The tibial plafond and talar dome are intact. Joint spaces and soft tissues are unremarkable. CONCLUS ION: Incompletely healed fracture of the distal aspect of the lateral malle olus is unchanged in appearance relative to 08/27/2017. Dictated by : Orlin Ramírez M.D. on 09/21/2017 at 10:26 Electronically approved by: Wilfred Ramírez M.D. on 09/21/2017 at 10:26 Dictated By: ORLIN RAMÍREZ MD 1026 Transcribed By: EVELYNE on 09/21/17 1026 COPY TO: VICKY CABALLERO DPM ANKLE COMPLETE BILATERAL [place] [address] Patient Name: TAI GRANT MR #: [id number] : 1960 Age/Sex: 57/F Req #: [id number] [facility] Physician: Ordered by: VICKY CABALLERO DPM Report #: [id number] Location: [facility] Room/Bed: Procedure: [id number] DX/ANKLE COMPLETE BILATERAL Exam Date: 08/27/17 Exam Time: [address] ATUS: Signed PROCEDURE: ANKLE COMPLETE BILATERAL TECHNIQUE: INDICATI ON: Pain. COMPARISON: Left Ankle 3 views 11/05/2016. FINDINGS: Isra te trauma of the medial malleolus and lateral malleolus of the left ankle. Fr acture line is still visualized in the distal left fibula, best visualized on the oblique projection No acute displaced fracture or dislocation. No expans ile or lytic or sclerotic lesion. The soft tissues are unremarkable. CONCLUSION: Remote trauma of the left ankle. Persistent visualizat ion of the distal fibula fracture line may represent nonunion. No acute di splaced fracture. Dictated by: Jace Moon M.D. on 7 at 13:27 Electronically approved by: Jace Moon M.D. on 08/27/2017 a t 13:27 Dictated By: JACE MOON MD 1327 Transcribed By: EVELYNE on 08/27/17 1327 COPY TO: VICKY CABALLERO DPVijay CHEST 2 VIEWS [place] [address] Patient Name: TAI GRANT MR #: [id number] : 1960 Age/Sex: 57/F Req #: [id number] Adm Physician: Ordered by: FARAZ BUSTILLO MD Report #: [id number] Location: ER Room/Bed: Procedure: [id number] DX/CHEST 2 VIEWS Exam D ate: 06/21/17 Exam Time: 1937 REPORT STATUS: Si gned EXAM: Chest x-ray portable, AP DATE: June 21, 2017 Time stamp on exa m: 1937 hours INDICATION: Shortness of breath, weakness COMPARISON: None allyson ilable A preliminary report was provided by Dr. Stack June 21, 2017 at 2033 hours. FINDINGS: LINES/TUBES: None LUNGS: Bibasilar atelectasi s, mild bronchial thickening and vascular congestion PLEURA: No effusions o r pneumothorax. HEART AND MEDIASTINUM: The heart is at the upper limits of normal in size. BONES AND SOFT TISSUES: No acute findings. IMPRESSION : Bibasilar atelectasis, mild bronchial thickening and vascular congestion. Signed by: Dr. Marcia Stack M.D. on 07/06/2017 10:58 PM Dictated By: MARCIA STACK MD 57 COPY TO: FARAZ BUSTILLO MD SP LUMBAR, COMPLETE MIN 4VW [place] [address] Patient Name: TAI GRANT MR #: [id number] : 1960 Age/Sex: 57/F Req #: [id number] Adm Physician: Ordered by: MERI LEE, JASPREET Ron MD Report #: [id number] Location: [facility] Room/Bed: Procedure: [id number] DX/SP LUMBAR, COMPLETE M IN 4VW Exam Date: 06/15/17 Exam Time: 0914 REP ORT STATUS: Signed PROCEDURE: SP LUMBAR, COMPLETE MIN 4VW TECHNIQUE: AP , lateral, coned-down lateral and bilateral oblique views lumbar spine. IND ICATION: Low back pain COMPARISON: [facility], CT, CT ABDOMEN /PELVIS W, 06/18/2016, 9:43. Patients [facility], DX, LUMBAR 3 VIEW, , 21:59. FINDINGS: 5 yqg-nuh-febeyah lumbar vertebral bodies. Ve rtebral body height is maintained. There are mild endplate degenerative tolbert es from L1-L5 with relative preservation of disc space height. Facets are pat ent, without significant arthropathy. Patent neural foramen. Straightening of the spine, with loss of normal cervical lordosis. Regional skeleton is in tact. Cholecystectomy clips. Right kidney embolization coils. CONCLUSI ON: 1. Mild multilevel degenerative disc disease. 2. Loss of normal cervical lordosis. Dictated by: Edmund Nathan M.D. on 06/15/2017 at 10:04 Electronically approved by: Edmund Nathan M.D. on 06/15/2017 at 10:04 Dictated By: EDMUND NATHAN MD 1004 Transcribed By: EVELYNE on 06/15/17 1004 COPY TO: JASPREET JEREZ
[2020-06-20] MEDS ORDERED: MORPHINE SULFATE 2 MG/ML SYR 1ML IV PRN (12:00)
--- OUTSIDE RECORDS SUMMARY | 2020-06-20 12:12 | XMS REPORT | Clinical Summary ---
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
--- OUTSIDE RECORDS SUMMARY | 2020-06-20 12:16 | XMS REPORT | Continuity of Care Document ---
Author Author [facility] Organization [employer] Address Unknown Phone Unavailable Care Team Providers Care Scaler Name Role Phone [employer] Unavailable Un available Problems Problem Status Onset Date Classification Date Reported Comments Source Other symptoms and signs involving the nervous system 12/02/2017 03/05/2018 [facility] DX: R29.818=OTHER SYMPTOMS AND SIGNS INV Active 11/18/2017 [facility] CHEST PAIN/SOB Active 06/05/2016 [facility] DIVERTICULITIS, MISSED HD Acti ve 06/05/2016 [facility] GROIN PAIN Active 04/15/2015 [facility] LEG PAIN Active 04/15/2015 [facility] Discharge Diagnosis: Abdominal pain 01/11/2015 01/13/2015 [facility] ABDOMINAL PAIN Active 01/11/2015 [facility] CARDIAC CLEARANCE Active 12/03/2014 [facility] FAUSTO Active 0 11/07/2014 [facility] RENAL DO NOT USE FOR CHARGES F/C NOTES O Active 11/06/2014 [facility] SYNCOPE Active 10/05/2014 [facility] SYNCOPE, ABDOMINAL PAIN Active 10/05/2014 [facility] SEVERE DYSPESIA, SYNCOPALL EPISODE Active 10/05/2014 [facility] PRE RENAL EVAL Active 10/03/2014 [facility] WEAKNESS Active 09/19/2014 [facility] Discharge Diagnosis: Abdominal pain, acu te, bilateral lower quadrant 09/03/2014 09/06/2014 [facility] Discharge Diagnosis: Abdominal cramping 09/03/2014 09/06/2014 [facility] VOMITING Active 07/31/2014 [facility] SYNCOPE, ANEMIA Active 07/31/2014 [facility] HYPOGLYCEMIA Active 11/09/2013 [facility] BDDC/GERD Active 09/18/2013 [facility] COLITIS Active 08/05/2013 [facility] VOMITING, HYPOKALEMIA, ESRD Ac tive 07/24/2013 [facility] SHORTNESS OF BREATH Active 07/24/2013 [facility] BDDC/REFLUX, SCREENING Active 02/02/2013 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 [facility] VRE Active 0 07/01/2012 Problem 08/04/2013 12/05/12 VRE of the urine 2Problem added by Discern Expert. [facility] HYPERKALEMIA, WEAKNESS Active 06/30/2012 [facility] ABDOMINAL PAIN/ VAG BLEED Acti ve 01/31/2012 [facility] HEMATURIA WITH URINARY RETENTION, ABDOMINAL PAIN Active 01/31/2012 [facility] HYPERRKALEMIA, INTRACTABLE PAIN,ARF,NEUROPATHY Active 12/30/2011 [facility] Acute painful diabetic neuropathy (disorder) Active Problem 03/05/2018 [facility] Injury of back (disorder) Acti ve Problem 09/2018 [facility] Backache (finding) Active Problem 03/05/2018 [facility] Coronary arteriosclerosis (disorder) Active Problem 09/2018 [facility] Diabetes mellitus (disorder) A ctive Problem 09/2018 [facility] Diabetes mellitus type 2 (disorder) Active Problem 09/2018 [facility] End stage renal disease (disorder) Active Problem 09/2018 [facility] Fibromyositis (disorder) Resol kathy Problem 09/2018 [facility] Asthenia (finding) Active Problem 03/05/2018 [facility] Hemodialysis (procedure) Active Problem 03/05/2018 [facility] Heart disease (disorder) Active Problem 03/05/2018 [facility] Hypertensive disorder, systemic arterial (disorder) Active Problem 03/05/2018 [facility] Malignant hypertension (disorder) Active Problem 09/2018 [facility] [place] Hyperkalemia (disorder) Active Problem 03/05/2018 [facility] [place] Neuropathy (disorder) Active Problem 03/05/2018 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 Osteoarthritis (disorder) Acti ve Problem 09/2018 [facility] [place] Obesity (disorder) Active Problem 03/05/2018 [facility] [place] Pretransplant evaluation of kidney recip ient (procedure) Active Prob renee 03/05/2018 [facility] Kidney disease (disorder) Acti ve Problem 09/2018 [facility] [place] Sleep apnea(Confirmed) Active Problem 03/05/2018 [facility] Sleep apnea (finding) Active Problem 03/05/2018 [facility] [place] Urinary tract infectious disease (disorder) Active Problem 03/05/2018 [facility] Acute painful diabetic neuropathy Active Problem 08/2013 [facility] [place] Back injury Active Problem 08/04/2013 [facility] Back pain Active Problem 08/04/2013 [facility] Cholesterol Active Problem 08/04/2013 [facility] Diabetes mellitus Active Problem 08/04/2013 [facility] [place] ESRD - End stage renal disease Active Problem 08/2013 [facility] [place] General weakness Active Problem 08/04/2013 [facility] [place] HD - Hemodialysis Active Problem 08/04/2013 [facility] [place] Heart disease Active Problem 08/04/2013 [facility] HT - Hypertension Active Problem 08/04/2013 [facility] [place] Hyperkalemia Active Problem 08/04/2013 [facility] Neuropathy Active Problem 08/04/2013 [facility] OA - Osteoarthritis Active Problem 08/04/2013 [facility] [place] Renal disease Active Problem 08/04/2013 [facility] Sleep apnea Active Problem 08/04/2013 [facility] UTI - Urinary tract infection Active Problem 08/2013 [facility] [place] OA - Osteoarthritis Active Problem 02/18/2012 [facility] Kidney dialysis Active Problem 08/04/2013 [facility] [place] Neuropathy Resolved Problem 08/04/2013 [facility] Sleep apnea Resolved Problem 12/01/2013 [facility] Back pain Resolved Problem 09/22/2013 [facility] DM (diabetes mellitus) Resolved Problem 09/22/2013 [facility] [place] ESRD (end stage renal disease) Resolved Problem [facility] [place] HTN Resolved Problem 09/22/2013 [facility] Hyperkalemia Resolved Problem 09/22/2013 [facility] [place] OA (osteoarthritis) Resolved Problem 09/22/2013 [facility] [place] UTI [Urinary tract infection] Resolved Problem [facility] [place] Cholesterol (substance) Active Problem 06/13/2016 [facility] [place] Renal dialysis (procedure) Act sue Problem [facility] [place] Obesity Active Problem 08/04/2013 [facility] DM (diabetes mellitus)(Confirmed) Active Problem [facility] hemo dialysis M W FR(Confirmed) Active Problem [facility] Essential hypertension (disorder) Active Problem [facility] OA (osteoarthritis)(Confirmed) Active Problem 11/2014 [facility] [place] Sleep apnea(Confirmed) Active Problem 04/25/2015 [facility] [place] hemo dialysis M W FR Active Problem 12/01/2013 [facility] HYPERPOTASSEMIA Active [facility] HEMATURIA Active [facility] RETENTION OF URINE NOS Active [facility] ABDMNAL PAIN UNSPCF SITE Active [facility] MALAISE AND FATIGUE NEC Active [facility] JOINT PAIN-PELVIS Active [facility] RESPIRATORY ABNORM NEC Active [facility] HYPOPOTASSEMIA Active [facility] SCREEN MALIG NEOP-COLON Active [facility] ESOPHAGEAL REFLUX Active [facility] MORBID OBESITY Active [facility] VOMITING ALONE Active [facility] LOCALIZED ADIPOSITY Active [facility] NONINF GASTROENTERIT NEC Active [facility] HYPOGLYCEMIA NOS Active [facility] SYNCOPE AND COLLAPSE Active [facility] ROUTINE MEDICAL EXAM Active [facility] ABDMNAL PAIN OTH SPCF ST Active [facility] DIVERTICULUM OF APPENDIX Active [facility] OTHER SYMPTOMS AND SIGNS INVOLVING THE N Active [facility] Medications Medication Details Route Status Patient Instructions Ordering Provider Order Date Source Cefuroxime 250 MG Oral Tablet [Ceftin] Notes: (Do Not Crush) With food. (Same As: Ceftin) Inactive 06/10/2016 [facility] tramadol hydrochloride 50 MG Oral Tablet 50 mg = 1 tab, PO, Q6H, PRN Pain Score 4-6, # 24 tab, 0 Refill(s) No Longer Active 06/10/2016 [facility] saccharomyces boulardii lyo 250 mg oral capsule 250 mg = 1 cap, PO, BID, # 10 cap, 0 Refill(s) No Longer Active 06/10/2016 [facility] Metronidazole 500 MG Oral Tablet 500 mg = 1 tab, PO, ABXQ8H, # 42 tab, 0 Refill(s) No Longer Active 06/10/2016 [facility] Famotidine 40 MG Oral Tablet [Pepcid] 40 mg = 1 tab, PO, Daily, # 30 tab, 0 Refill(s) Active 06/10/2016 [facility] Cefuroxime 250 MG Oral Tablet [Ceftin] 250 mg = 1 tab, PO, BID, # 20 tab, 0 Refill(s) No Longer Active 06/10/2016 [facility] Flagyl Notes: (Same as: Flagyl ) Take with food/ avoid alcohol Inactive 06/10/2016 [facility] Florastor Notes: Same as Lori stor Inactive 06/10/2016 [facility] Famotidine 40 MG Oral Tablet [Pepcid] Notes: (Same as: Pepcid) No Longer Active 06/10/2016 [facility] Dilaudid 0.5 mg, 0.5 mL, Route : IVP, Drug form: INJ, Q4H, Dosing Weight 94.801, kg, PRN Pain Score 7-10, Start date: 06/09/16 11:44:00 CDT, Duration: 30 day, Stop date: 07/09/16 11:43:00 CDT No Longer Active 06/09/2016 [facility] Insulin, Aspart, Human Notes: Roll in palms of hands gently; Do not shake vigorously. (Same as: NovoLOG) "single patient use only" WASTE: F/P - Black; E - Municipal Trash Bin Stable for 28 days at room temperature. Expires in days from Date No Longer Active 06/07/2016 [facility] Dextrose 50% Syringe 25 gm, 50 mL, Route: IVP, Drug Form: INJ, Dosing Weight 94.801, kg, PRN, PRN Blood Glucose Results, Start date: 06/06/16 19:06:00 CDT, Duration: 30 day, Stop date: 07/06/16 19:05:00 CDT No Longer Active 06/07/2016 [facility] Glucagon 1 mg, Route: IM, Drug form: PDR/INJ, PRN, Dosing Weight 94.801, kg, PRN Blood Glucose Results, Start date: 06/06/16 19:06:00 CDT, Duration: 30 day, Stop date: 07/06/16 19:05:00 CDT No Longer Active 06/07/2016 [facility] pneumococcal 13-valent vaccine Notes: Lightly roll vial (DO NOT SHAKE) before administration. (Same as: Prevnar 13) Inactive 06/06/2016 [facility] Protonix Notes: Tablet should not be chewed or crushed. (Same as: Protonix) No Longer Active 06/06/2016 [facility] Dilaudid 0.5 mg, 0.5 mL, Route : IVP, Drug form: INJ, Q4H, Dosing Weight 94.801, kg, PRN Pain Score 7-10, Start date: 06/06/16 11:53:00 CDT, Duration: 30 day, Stop date: 07/06/16 11:52:00 CDT No Longer Active 06/06/2016 [facility] Sodium Bicarbonate 325 MG Oral Tablet Notes: "Dissolve tablet in a glass of water prior to oral administration. STOMACH WARNING: To avoid serious injury, do not take until tablet is completely dissolved. It is very important not to take this product when overly full from food or drink." No Longer Active 06/06/2016 [facility] ropinirole Notes: (Same as: Re quip) No Longer Active 06/06/2016 [facility] Lyrica Notes: (Same as: Lyrica) No Longer Active 06/06/2016 [facility] Nephro-Melodie Notes: (Same as: N ephro-Melodie Rx and Diatx) Give with food. No Longer Active 06/06/2016 [facility] Midodrine Notes: (Same as:Proa matine) No Longer Active 06/06/2016 [facility] Lisinopril Notes: (Same as: Pr inivil, Zestril) No Longer Active 06/06/2016 [facility] Lidocaine Hydrochloride 0.05 MG/MG Trans dermal Patch [Lidoderm] Notes: Apply only once for up to 12 hour s in a 24-hour period (12 hours on and 12 hours off). (Same as: Lidoderm) "Remove old patch before application of new patch" No Longer Active 06/06/2016 [facility] Levemir FlexPen Notes: Same as Levemir Do not hold insulin without contacting prescriber WASTE: F/P - Black; E - Municipal Trash Bin "single patient use only" No Longer Active 06/06/2016 [facility] NovoLOG 70/30 Notes: Roll in p alms of hands gently; Do not shake vigorously. (Same as: NovoLOG Mix) "single patient use only" WASTE: F/P - Black; E - Municipal Trash Bin Stable for 14 days at room temperature Expires in days from Date No Longer Active 06/06/2016 [facility] gabapentin 300 MG Oral Capsule Notes: (Same as: Neurontin) No Longer Active 06/06/2016 [facility] Nexium 40 mg, Route: PO, Drug form: ECCAP, Daily, Dosing Weight 95.455, kg, Start date: 06/06/16 9:00:00 CDT, Duration: 30 day, Stop date: 07/05/16 9:00:00 CDT No Longer Active 06/06/2016 [facility] duloxetine Notes: (Same as: Cy mbalta) (Do Not Crush) No Longer Active 06/06/2016 [facility] clopidogrel Notes: (Same As: P lavix) No Longer Active 06/06/2016 [facility] carvedilol Notes: Give with fo od. (Same As: Coreg) No Longer Active 06/06/2016 [facility] Renvela Notes: Same as: Renvela No Longer Active 06/06/2016 [facility] Simvastatin Notes: (Same as: Z ocor) No Longer Active 06/06/2016 [facility] insulin detemir Notes: Same as Levemir Do not hold insulin without contacting prescriber WASTE: F/P - Black; E - Municipal Trash Bin "single patient use only" No Longer Active 06/06/2016 [facility] 24 HR Divalproex Sodium 500 MG Extended Release Tablet [Depakote] Notes: (Same as: Depakote ER) (Do Not Cr ush) "Do Not Crush" No Longer Active 06/06/2016 [facility] sevelamer 1,600 mg, Route: PO, Drug form: TAB, PRN, Dosing Weight 95.455, kg, PRN Dialysis, Start date: 06/05/16 20:05:00 CDT, Duration: 30 day, Stop date: 07/05/16 20:04:00 CDT Inactive 06/06/2016 [facility] Sumatriptan Notes: (Same As: I mitrex) No Longer Active 06/06/2016 [facility] tramadol hydrochloride 50 MG Oral Tablet Notes: Not to exceed 400mg/day. (Same As: Ultram) No Longer Active 06/06/2016 [facility] sevelamer 1,600 mg, Route: PO, Drug form: TAB, PRN, Dosing Weight 95.455, kg, PRN Dialysis, Start date: 06/05/16 19:03:00 CDT, Duration: 30 day, Stop date: 07/05/16 19:02:00 CDT Inactive 06/06/2016 [facility] Promethazine Notes: (Same as: Phenergan) No Longer Active 06/06/2016 [facility] cyclobenzaprine Notes: (Same A s: Flexeril) No Longer Active 06/06/2016 [facility] Rocephin Notes: (Same As: Roce phin). Use with 100 mL NS and infuse over 30 min MEDICATION WASTE Product Size: 1000 mg Product Wasted: ___ mg No Longer Active 06/05/2016 [facility] Esomeprazole 40 MG Enteric Coated Capsule [Nexium] 40 mg = 1 cap, PO, Daily, # 30 cap, 0 Refill(s) Active 06/05/2016 [facility] Promethazine 0.5, PO, PRN, 0 R efill(s) Active 06/05/2016 [facility] Sodium Bicarbonate 325 MG Oral Tablet PO, TID, 0 Refill(s) Active 06/05/2016 [facility] gabapentin 300 MG Oral Capsule 300 mg = 1 cap, PO, BID, # 90 cap, 1 Refill(s) Active 06/05/2016 [facility] lisinopril 10 mg oral tablet 1 0 mg = 1 tab, PO, Daily, # 30 tab, 0 Refill(s) Active 06/05/2016 [facility] cyclobenzaprine 5 mg, PO, TID, PRN Muscle spasm, # 30 tab, 0 Refill(s) Active 06/05/2016 [facility] Acetaminophen 325 MG / Hydrocodone Abram trate 5 MG Oral Tablet [[place] 5/325] Notes: (Same as: [place] 325/5) Do not ex ceed 4gm/day of acetaminophen. No Longer Activ e 06/05/2016 [facility] Streptococcus pneumoniae serotype 1 caps ular antigen diphtheria [id number] protein conjugate vaccine / Streptococcus pneumoniae serotype 14 capsular antigen diphtheria [id number] protein conjugate vaccine / Streptococcus pneumoniae serotype 18C capsular antigen d Notes: Lightly roll vial (DO NOT SHAKE) before administration. (Same as: Prevnar 13) Inactive 06/05/2016 [facility] Ondansetron Notes: (Same as: [address]) MEDICATION WASTE Product Size: 4 mg Product Wasted: ___ mg No Longer Active 06/05/2016 [facility] Acetaminophen Notes: Do not ex ceed 4 gm/day. (Same as: Tylenol) No Longer Active 06/05/2016 [facility] Flagyl Notes: (Same as: Flagyl ) Avoid alcohol. No Longer Active 06/05/2016 [facility] Cipro Notes: Do not refrigerate Inactive 06/05/2016 [facility] Zofran 4 mg, Route: IVP, Drug form: INJ, ONCE, Dosing Weight 95.455, kg, Priority: STAT, Start date: 06/05/16 11:22:00 CDT, Stop date: 06/05/16 11:22:00 CDT Inactive 06/05/2016 [facility] Dilaudid 0.5 mg, Route: IVP, O NCE, Dosing Weight 95.455, kg, Priority: STAT, Start date: 06/05/16 6:44:00 CDT, Stop date: 06/05/16 6:44:00 CDT Inactive 06/05/2016 [facility] Ondansetron 4 mg, Route: IVP, ONCE, Dosing Weight 95.455, kg, Priority: STAT, Start date: 06/05/16 6:44:00 CDT, Stop date: 06/05/16 6:44:00 CDT Inactive 06/05/2016 [facility] Saline Flush 0.9% Notes: (Same as: BD Posiflush) Inactive 06/05/2016 [facility] duloxetine Notes: (Same as: Cy mbalta) (Do Not Crush) No Longer Active 04/19/2015 [facility] Simvastatin Notes: (Same as: Z ocor) No Longer Active 04/17/2015 [facility] insulin detemir Notes: Same as Levemir Do not hold insulin without contacting prescriber "single patient use only" No Longer Active 04/17/2015 [facility] 24 HR Divalproex Sodium 500 MG Extended Release Tablet [Depakote] Notes: (Same as: Depakote ER) Once clara y dosing; indicated for migraines. Divalproex sodium extended-release tab. Do not chew or crush. "Do Not Crush" No Longer Active 04/17/2015 [facility] Ativan Notes: (Same as: Ativan) Inactive 04/16/2015 [facility] ropinirole Notes: (Same as: Re quip) No Longer Active 04/16/2015 [facility] Lyrica Notes: (Same as: Lyrica) No Longer Active 04/16/2015 [facility] Nephro-Melodie Notes: (Same as: N ephro-Melodie Rx and Diatx) Give with food. No Longer Active 04/16/2015 [facility] Midodrine Notes: (Same as:Proa matine) No Longer Active 04/16/2015 [facility] NovoLOG 70/30 Notes: Roll in p alms of hands gently; Do not shake vigorously. (Same as: NovoLOG Mix) "single patient use only" Stable for 14 days at room temperature Expires in days from Date No Longer Active 04/16/2015 [facility] Levemir FlexPen Notes: Same as Levemir Do not hold insulin without contacting prescriber "single patient use only" No Longer Active 04/16/2015 [facility] clopidogrel Notes: (Same As: P lavix) No Longer Active 04/16/2015 [facility] duloxetine Notes: (Same as: Cy mbalta) (Do Not Crush) No Longer Active 04/16/2015 [facility] carvedilol Notes: Give with fo od. (Same As: Coreg) No Longer Active 04/16/2015 [facility] Renvela Notes: Same as: Renvela No Longer Active 04/16/2015 [facility] heparin Notes: porcine heparin No Longer Active 04/16/2015 [facility] Insulin, Aspart, Human Notes: Roll in palms of hands gently; Do not shake vigorously. (Same as: NovoLOG) "single patient use only" Stable for 28 days at room temperature. Expires in days from Date No Longer Active 04/16/2015 [facility] Dextrose 50% Syringe 12.5 gm, 25 mL, Route: IVP, Drug Form: INJ, Dosing Weight 80.909, kg, PRN, PRN Blood Glucose Results, Start date: 04/16/15 7:04:00, Duration: 30 day, Stop date: 05/16/15 7:03:00 No Longer Active 04/16/2015 [facility] Glucagon 1 mg, Route: IM, Drug form: PDR/INJ, PRN, Dosing Weight 80.909, kg, PRN Blood Glucose Results, Start date: 04/16/15 7:04:00, Duration: 30 day, Stop date: 05/16/15 7:03:00 No Longer Active 04/16/2015 [facility] tramadol hydrochloride 50 MG Oral Tablet Notes: Not to exceed 400mg/day. (Same As: Ultram) No Longer Active 04/16/2015 [facility] Dilaudid 0.5 mg, 0.5 mL, Route : IV, Drug form: INJ, Q4H, Dosing Weight 80.909, kg, PRN Pain Score 7-10, Start date: 04/15/15 22:01:00, Duration: 30 day, Stop date: 05/15/15 22:00:00 No Longer Active 04/16/2015 [facility] Zofran Notes: (Same as: Zofran ) MEDICATION WASTE Product Size: 4 mg Product Wasted: ___ mg No Longer Active 04/16/2015 [facility] Morphine Notes: (Same as:MORPh ine Sulfate) Inactive 04/16/2015 [facility] Acetaminophen 325 MG / Hydrocodone Abram trate 5 MG Oral Tablet Notes: (Same as: [place] 325/5) Do not ex ceed 4gm/day of acetaminophen. No Longer Active 04/16/2015 [facility] sevelamer 800 mg oral tablet 1 ,600 mg = 2 tab, PO, PRN, PRN Other -See Comment, # 180 tab, 0 Refill(s) Active 04/16/2015 [facility] 3 ML insulin detemir 100 UNT/ML Prefille d Syringe [Levemir] 60 unit, SUB-Q, Bedtime, # 1 pen(s), 3 Refill(s) Active 04/16/2015 [facility] 3 ML insulin detemir 100 UNT/ML Prefille d Syringe [Levemir] 16 unit, SUB-Q, Daily, # 1 pen(s), 0 Refill(s) Active 04/16/2015 [facility] 24 HR Divalproex Sodium 500 MG Extended Release Tablet [Depakote] 500 mg = 1 tab, PO, Bedtime, # 60 tab, 1 Refill(s) Active 04/16/2015 [facility] Zofran 4 mg, Route: IVP, Drug form: INJ, ONCE, Dosing Weight 84.8, kg, Priority: STAT, Start date: 04/15/15 16:55:00, Stop date: 04/15/15 16:55:00 Inactive 04/15/2015 [facility] Dilaudid 0.5 mg, Route: IVP, O NCE, Dosing Weight 84.8, kg, Priority: STAT, Start date: 04/15/15 16:55:00, Stop date: 04/15/15 16:55:00 Inactive 04/15/2015 [facility] Dilaudid 0.5 mg, Route: IVP, O NCE, Dosing Weight 84.8, kg, Priority: STAT, Start date: 04/15/15 13:35:00, Stop date: 04/15/15 13:35:00 Inactive 04/15/2015 [facility] Ondansetron Notes: (Same as: [address]) MEDICATION WASTE Product Size: 4 mg Product Wasted: ___ mg Inactive 04/15/2015 [facility] Morphine Notes: (Same as:MORPh ine Sulfate) Inactive 04/15/2015 [facility] Saline Flush 0.9% Notes: (Same as: BD Posiflush) Inactive 04/15/2015 [facility] Morphine 4 mg, Route: IVP, Zach g form: INJ, ONCE, Dosing Weight 77.273, kg, Priority: STAT, Start date: 01/11/15 11:35:00, Stop date: 01/11/15 11:35:00 Inactive 01/11/2015 [facility] Morphine 4 mg, Route: IVP, Zach g form: INJ, ONCE, Dosing Weight 77.273, kg, Priority: STAT, Start date: 01/11/15 9:27:00, Stop date: 01/11/15 9:27:00 Inactive 01/11/2015 [facility] Zofran Notes: (Same as: Zofran) Inactive 01/11/2015 [facility] pregabalin 75 MG Oral Capsule [Lyrica] 75 mg = 1 cap, PO, BID, # 90 cap, 0 Refill(s) Active 11/27/2014 [facility] Lidocaine Hydrochloride 0.05 MG/MG Trans dermal Patch [Lidoderm] 0 Refill(s) Active 11/27/2014 [facility] tramadol hydrochloride 50 MG Oral Tablet 0 Refill(s) Active 11/27/2014 [facility] rOPINIRole 0.25 mg oral tablet 0 Refill(s) Active 11/27/2014 [facility] midodrine 10 mg oral tablet 0 Refill(s) Active 11/27/2014 [facility] NovoLOG 70/30 26 unit, SUB-Q, 0 Refill(s) Active 11/27/2014 [facility] simvastatin 10 mg oral tablet 10 mg = 1 tab, PO, Bedtime, # 30 tab, 0 Refill(s) Active 11/27/2014 [facility] DULoxetine 20 mg oral delayed release capsule 0 Refill(s) Active 11/27/2014 [facility] Vital-D Special Instructions: D3 2000u po qd Active 11/02/2014 [facility] sevelamer carbonate 800 MG Oral Tablet [Renvela] Special Instructions: 3w/ meals and 1/ smack Active 11/02/2014 [facility] nter 72 HR Scopolamine 0.0139 MG/HR Transdermal Patch Special Instructions: 1 patch q3 days Active 11/02/2014 [facility] nt carvedilol 3.125 mg oral tablet 0 Refill(s) Active 11/02/2014 [facility] Promethazine Hydrochloride 12.5 MG Oral Tablet [Phenergan] Special Instructions: prn q8hrs for n/v Active 11/02/2014 [facility] nt cyclobenzaprine 10 mg oral tablet Special Instructions: prn Active 11/02/2014 [facility] Nephro-Melodie Special Instructio ns: qd Active 11/02/2014 [facility] diazepam 5 mg oral tablet 5 mg = 1 tab, PO, QID, Muscle Spasms, # 5 tab, 0 Refill(s) Active 09/19/2014 [facility] Diazepam 5 mg, Route: IVP, Zach g form: INJ, ONCE, Dosing Weight 84.007, kg, Priority: STAT, Start date: 09/19/14 10:39:00, Stop date: 09/19/14 10:39:00 Inactive 09/19/2014 [facility] Hydromorphone 0.5 mg, Route: I SENIOR INSIGHT MANAGER, ONCE, Dosing Weight 84.007, kg, Priority: STAT, Start date: 09/19/14 9:59:00, Stop date: 09/19/14 9:59:00 Inactive 09/19/2014 [facility] Ondansetron 4 mg, Route: IVP, Drug form: INJ, ONCE, Dosing Weight 84.007, kg, Priority: STAT, Start date: 09/19/14 9:47:00, Stop date: 09/19/14 9:47:00 Inactiv e 09/19/2014 [facility] Hydromorphone 0.5 mg, Route: I SENIOR INSIGHT MANAGER, ONCE, Dosing Weight 84.007, kg, Priority: STAT, Start date: 09/19/14 7:23:00, Stop date: 09/19/14 7:23:00 Inactive 09/19/2014 [facility] Sodium Chloride 0.154 MEQ/ML Injectable Solution 500 mL, 500 ml/hr, Infuse Over: 1 Hour, Route: IV, ONCE, Priority: STAT, Dosing Weight 84.007 kg, Start date: 09/19/14 7:22:00, Duration: 1 doses or times, Stop date: 09/19/14 7:22:00 Inactive 09/19/2014 [facility] Ondansetron 4 mg, Route: IVP, Drug form: INJ, ONCE, Dosing Weight 84.007, kg, Priority: STAT, Start date: 09/19/14 7:22:00, Stop date: 09/19/14 7:22:00 Inactiv e 09/19/2014 [facility] Bentyl 20 mg, Route: PO, ONCE, Dosing Weight 77.273, kg, Priority: STAT, Start date: 09/03/14 9:30:00, Stop date: 09/03/14 9:30:00 Inactive 09/03/2014 [facility] Morphine 2 mg, Route: IVP, Zach g form: INJ, ONCE, Dosing Weight 77.273, kg, Priority: STAT, Start date: 09/03/14 9:30:00, Stop date: 09/03/14 9:30:00 Inactive 09/03/2014 [facility] Ondansetron 4 MG Oral Tablet [Zofran] 4 mg = 1 tab, PO, Q8H, # 10 tab, 0 Refill(s) Active 09/03/2014 [facility] Acetaminophen 300 MG / Codeine Phosphate 30 MG Oral Tablet [Tylenol with Codeine #3] 1 - 2 tab, PO, Q4H, Pain, # 20 tab, 0 Re fill(s) Active 09/03/2014 [facility] Dicyclomine Hydrochloride 20 MG Oral Tablet [Bentyl] 20 mg = 1 tab, PO, QID, # 28 tab, 0 Refill(s) Active 09/03/2014 [facility] Ketorolac 30 mg, Route: IVP, D rug form: INJ, ONCE, Dosing Weight 77.273, kg, Priority: STAT, Start date: 09/03/14 8:19:00, Stop date: 09/03/14 8:19:00 Inactiv e 09/03/2014 [facility] Morphine 4 mg, Route: IVP, Zach g form: INJ, ONCE, Dosing Weight 77.273, kg, Priority: STAT, Start date: 09/03/14 8:18:00, Stop date: 09/03/14 8:18:00 Inactive 09/03/2014 [facility] Ondansetron 4 mg, Route: IVP, ONCE, Dosing Weight 77.273, kg, Priority: STAT, Start date: 09/03/14 6:46:00, Stop date: 09/03/14 6:46:00 Inactive 09/03/2014 [facility] Morphine 4 mg, Route: IVP, ONC E, Dosing Weight 77.273, kg, Priority: STAT, Start date: 09/03/14 6:46:00, Stop date: 09/03/14 6:46:00 Inactive 09/03/2014 [facility] Saline Flush 0.9% Notes: (Same as: BD Posiflush) Inactive 09/03/2014 [facility] Midodrine Notes: (Same as:Proa matine) No Longer Active 08/03/2014 [facility] have RPh verify & bar pt own Midrin caps (C-IV) have RPh verify & bar pt own Midrin caps (C-IV), 1 attn notice, Drug form: MISC, Route: MISC, TID, 08/02/14 16:00:00, Duration: 30 day, Stop date: 09/01/14 8:00:00 Inactive 08/02/2014 [facility] Morphine 4 mg, Route: IV, Q4H, Dosing Weight 72.273, kg, Start date: 08/02/14 12:00:00, Duration: 30 day, Stop date: 09/01/14 8:00:00 Inactive 08/02/2014 [facility] Morphine Notes: (Same as:MORPh ine Sulfate) Inactive 08/02/2014 [facility] Ascorbic Acid / Biotin / Folic Acid / Ni acin / pantothenate / pyridoxine / Riboflavin / Thiamine / Vitamin B 12 Notes: (Same as:One Tab Daily, Tab-A-Melodie + Beta Carotene) Give with food. Inactive 08/02/2014 [facility] Nitroglycerin 0.4 MG Sublingual Tablet Notes: (Same as:Nitroquick, Nitrostat) "Do Not Crush" Sublingual tablet Inactive 08/02/2014 [facility] Atropine 0.5 mg, 5 mL, Route: IVP, Drug form: INJ, PRN, Dosing Weight 72.273, kg, PRN Bradycardia, Start date: 08/02/14 1:06:00, Duration: 30 day, Stop date: 09/01/14 0:05:00, symptomatic bradycardia, HR <40/ minute Inactive 08/02/2014 [facility] NS 250 mL 250 mL, Rate: 30 ml/ hr, Infuse over: 8.3 hr, Route: IV, Dosing Weight 72.273 kg, Total Volume: 250, Priority: NOW, Start date: 08/01/14 23:52:00, Duration: 30 day, Stop date: 08/31/14 23:51:00 No Longer Active 08/02/2014 [facility] Topamax Notes: (Same As: Topam ax) "Do Not Crush" No Longer Active 08/02/2014 [facility] Simvastatin Notes: (Same as: Z ocor) No Longer Active 08/02/2014 [facility] Levemir Notes: Same as Levemir "single patient use only" No Longer Active 08/02/2014 [facility] duloxetine Notes: (Same as: Cy mbalta) (Do Not Crush) No Longer Active 08/02/2014 [facility] Renvela Notes: Same as: Renvela No Longer Active 08/01/2014 [facility] ropinirole Notes: (Same as: Re quip) No Longer Active 08/01/2014 [facility] Lyrica Notes: (Same as: Lyrica) No Longer Active 08/01/2014 [facility] oxybutynin Notes: Same as: Dit ropan) No Longer Active 08/01/2014 [facility] NovoLOG 70/30 Notes: Roll in p alms of hands gently; Do not shake vigorously. (Same as: NovoLOG Mix) "single patient use only" Stable for 14 days at room temperature Expires in days from Date No Longer Active 08/01/2014 [facility] gabapentin 300 MG Oral Capsule Notes: (Same as: Neurontin) No Longer Active 08/01/2014 [facility] tramadol hydrochloride 50 MG Oral Tablet Notes: Not to exceed 400mg/day. (Same As: Ultram) No Longer Active 08/01/2014 [facility] Promethazine Notes: (Same as: Phenergan) No Longer Active 08/01/2014 [facility] Midrin Notes: (Same as: Midrin) No Longer Active 08/01/2014 [facility] sevelamer carbonate 800 MG Oral Tablet [Renvela] 1,600 mg = 2 tab, PO, PRN, With Snack Active 08/01/2014 [facility] Ascorbic Acid 60 MG / Calcium Pantothena te 10 MG / D-BIOTIN 0.3 MG / Folic Acid 0.8 MG / Niacinamide 20 MG / pyridoxine 10 MG / Riboflavin 1.7 MG / Thiamine 1.5 MG / Vitamin B 12 0.006 MG Oral Tablet [Brooke-Melodie] 1 tab, PO, Daily Active 08/01/2014 [facility] NovoLOG 70/30 26 unit, SUB-Q, TID-Meals Active 08/01/2014 [facility] insulin detemir 100 UNT/ML Injectable So lution [Levemir] = 60 unit, SUB-Q, Bedtime Active 08/01/2014 [facility] DULoxetine 20 mg oral delayed release capsule 20 mg = 1 cap, PO, Bedtime Active 08/01/2014 [facility] gabapentin 100 MG Oral Capsule Notes: (Same as: Neurontin) Inactive 08/01/2014 [facility] Benadryl 25 mg, Route: IVP, ON CE, Dosing Weight 77.273, kg, Priority: STAT, Start date: 08/01/14 12:48:00, Stop date: 08/01/14 12:48:00 Inactive 08/01/2014 [facility] Reglan 10 mg, Route: IVP, Drug form: INJ, ONCE, Dosing Weight 77.273, kg, Priority: STAT, Start date: 08/01/14 12:48:00, Stop date: 08/01/14 12:48:00 Inactive 08/01/2014 [facility] Dilaudid 0.5 mg, Route: IVP, O NCE, Dosing Weight 77.273, kg, Priority: STAT, Start date: 08/01/14 12:08:00, Stop date: 08/01/14 12:08:00 Inactive 08/01/2014 [facility] Dextrose 50% Syringe 12.5 gm, 25 mL, Route: IVP, Drug Form: INJ, Dosing Weight 77.273, kg, PRN, PRN Blood Glucose Results, Start date: 08/01/14 10:07:00, Duration: 30 day, Stop date: 08/31/14 9:06:00 No Longer Active 08/01/2014 [facility] Glucagon 1 mg, Route: IM, Drug form: PDR/INJ, PRN, Dosing Weight 77.273, kg, PRN Blood Glucose Results, Start date: 08/01/14 10:07:00, Duration: 30 day, Stop date: 08/31/14 9:06:00 No Longer Active 08/01/2014 [facility] Insulin, Aspart, Human Notes: Roll in palms of hands gently; Do not shake vigorously. (Same as: NovoLOG) "single patient use only" Stable for 28 days at room temperature. Expires in days from Date No Longer Active 08/01/2014 [facility] Ondansetron Notes: (Same as: Z haleyran) No Longer Active 08/01/2014 [facility] Morphine Notes: (Same as:MORPh ine Sulfate) No Longer Active 08/01/2014 [facility] Dilaudid 0.5 mg, Route: IVP, O NCE, Dosing Weight 77.273, kg, Priority: STAT, Start date: 08/01/14 9:12:00, Stop date: 08/01/14 9:12:00 Inactive 08/01/2014 [facility] Morphine 4 mg, Route: IVP, ONC E, Dosing Weight 77.273, kg, Start date: 08/01/14 8:08:00, Stop date: 08/01/14 8:08:00 Inactive 08/01/2014 [facility] Fentanyl 50 microgram, Route: IVP, ONCE, Dosing Weight 77.273, kg, Priority: STAT, Start date: 08/01/14 7:15:00, Stop date: 08/01/14 7:15:00 Inactive 08/01/2014 [facility] Zofran 4 mg, Route: IVP, Drug form: INJ, ONCE, Dosing Weight 77.273, kg, Priority: STAT, Start date: 08/01/14 7:15:00, Stop date: 08/01/14 7:15:00 Inactive 08/01/2014 [facility] cosyntropin 0.25 mg, Route: IV P, Drug form: PDR/INJ, ONCE, Dosing Weight 72.273, kg, Start date: 11/26/13 14:00:00, Stop date: 11/26/13 14:00:00(Same As: Cortrosyn) Inactive 11/26/2013 [facility] Maxipime + Sodium Chloride 0.9% IV 100 mL 1 gm, Route: IVPB, [id number], Start date: 11/24/13 20:00:00, Duration: 30 day, Stop date: 12/23/13 20:00:00(Same As: Maxipime) No Longer Active Shebib 11/25/2013 [facility] vancomycin 1 gm, 200 mL, Route : IVPB, Drug form: INJ, Q-M-W-F, Start date: 11/24/13 18:33:00, Duration: 30 day, Stop date: 12/22/13 21:00:00 No Longer Active Setoudeh 11/25/2013 [facility] morphine Sulfate 2 mg, 1 mL, R oute: IVP, Drug form: INJ, Q4H, Dosing Weight 72.273, kg, PRN Pain, Start date: 11/24/13 17:28:00, Duration: 30 day, Stop date: 12/24/13 17:27:00(Same as:MORPhine Sulfate) No Longer Active Mougouris 0 11/24/2013 [facility] Cortrosyn 0.25 mg, Route: IVP, Drug form: PDR/INJ, ONCE, Start date: 11/23/13 15:00:00, Stop date: 11/23/13 15:00:00(Same As: Cortrosyn) Inactive [facility] 10/27 [facility] sodium chloride 2 mL, Route: M ISC, Start date: 11/23/13 15:00:00, Stop date: 11/23/13 15:00:00preservative free. Inactive [facility] 11/23/2013 [facility] Haldol 1 mg, 0.2 mL, Route: IM , Drug form: INJ, Q6H, Dosing Weight 72.273, kg, PRN Agitation, Start date: 11/23/13 6:37:00, Duration: 30 day, Stop date: 12/23/13 6:36:00(Same as: Haldol) No Longer Active [facility] 11/23/2013 [facility] Haldol 1 mg, 0.2 mL, Route: IV , Drug form: INJ, Q6H, Dosing Weight 72.273, kg, PRN Agitation, Start date: 11/23/13 6:36:00, Duration: 30 day, Stop date: 12/23/13 6:35:00(Same as: Haldol) No Longer Active [facility] 11/23/2013 [facility] cloNIDine 0.1 mg oral tablet 0 .1 mg, 1 tab, Route: PO, Drug form: TAB, Q6H, Dosing Weight 72.273, kg, PRN See Nurse's Notes, Start date: 11/23/13 6:35:00, Duration: 30 day, Stop date: 12/23/13 6:34:00, prn systolic B/P > 160(Same As: Catapres) No Longer Active Mauro 11/23/2013 [facility] Haldol 2 mg, 0.4 mL, Route: IM , Drug form: INJ, ONCE, Dosing Weight 72.273, kg, PRN Hallucinations, Start date: 11/22/13 16:47:00, Stop date: 12/22/13 16:46:00(Same as: Haldol) Inactive Mougtanneris 11/22/2013 [facility] hydrocortisone 10 mg, 1 tab, R oute: PO, Drug form: TAB, Q8PM, Dosing Weight 72.273, kg, Start date: 11/21/13 20:00:00, Duration: 30 day, Stop date: 12/20/13 20:00:00(Same as: Cortef) Take with food. No Longer Active Mena 11/22/2013 [facility] hydrocortisone 5 mg, 1 tab, [place]: PO, Drug form: TAB, Q8PM, Dosing Weight 72.273, kg, Start date: 11/20/13 20:00:00, Duration: 30 day, Stop date: 12/19/13 20:00:00(Same as: Cortef) No Longer Active Mena 11/21/2013 [facility] Epogen (ESRD) 15,000 unit, 0.7 5 mL, Route: SUB-Q, Drug form: INJ, Q-M-W-F, Dosing Weight 72.273, kg, Start date: 11/20/13 17:00:00, Duration: 30 day, Stop date: 12/18/13 17:00:00(Same as: Procrit) epoetin shilpi 34690 unit/1 ml VL No Longer Active Mean 11/20/2013 [facility] ketorolac 30 mg/mL injectable solution 30 mg, 1 mL, Route: IV, Drug form: INJ, Q6H, Dosing Weight 72.273, kg, PRN as needed for pain, Start date: 11/20/13 13:26:00, Duration: 4 day, Stop date: 11/24/13 13:25:00(Same as:Toradol) IV bolus must be given >15 seconds. Give IM administration slowly and deeply into the muscle. Not for use > 4 days No Longer Active Rajesh 11/20 [facility] ketorolac 30 mg/mL injectable solution 30 mg, 1 mL, Route: IV, Drug form: INJ, Q6H, Dosing Weight 72.273, kg, Start date: 11/19/13 18:00:00, Duration: 4 day, Stop date: 11/23/13 12:00:00(Same as:Toradol) IV bolus must be given >15 seconds. Give IM administration slowly and deeply into the muscle. Not for use > 4 days No Longer Active Rajesh 11/20/2013 [facility] Phenergan + Sodium Chloride 0.9% IV 50 mL 25 mg, 1 mL, Route: IVPB, Q4H, PRN Nausea & Vomiting, Start date: 11/18/13 11:54:00, Duration: 30 day, Stop date: 12/18/13 11:53:00Do not give IV push. (Same as: Phenergan) No Longer Active Jaspreet 11/18/2013 [facility] Sodium Chloride 0.9% (titrate) 250 mL 250 mL, Rate: certified nurses' aide for use with blood product administration, Dosing Weight 72.273, kg, Route: IV, Total Volume: 250, Start Date: 11/17/13 9:22:00, Duration: 30 day, Stop date: 12/17/13 9:21:00, Replace Every: 24 hr No Longer Active Rajesh 11/17/2013 [facility] d50 syringe 25 gm, 50 mL, Rout e: IV, Drug Form: INJ, Dosing Weight 72.273, kg, PRN, PRN See Respiratory Notes, Start date: 11/17/13 9:20:00, Duration: 30 day, Stop date: 12/17/13 9:19:00, blood glucose <40 No Longer Active Rajesh 11/17 [facility] Robaxin + Sodium Chloride 0.9% IV 240 mL 1,000 mg, 10 mL, Route: IV, Drug form: INJ, Q8H, Dosing Weight 72.273, kg, Start date: 11/17/13 0:00:00, Duration: 30 day, Stop date: 12/16/13 16:00:00(Same as:Robaxin) No Longer Active Mougouris 11/17/2013 [facility] Imodium A-D 4 mg, 2 cap, Route : PO, Drug form: CAP, Q6H, Dosing Weight 72.273, kg, Start date: 11/16/13 18:00:00, Duration: 30 day, Stop date: 12/16/13 12:00:00(Same as: Imodium) MAX adult dose is 8 caps/day Inactive Mougouris 11/17/2013 [facility] Robaxin + Sodium Chloride 0.9% IV 240 mL 1,000 mg, 10 mL, Route: IV, Drug form: INJ, Q8H, Dosing Weight 72.273, kg, PRN Muscle Spasms, Start date: 11/16/13 17:56:00, Duration: 30 day, Stop date: 12/16/13 17:55:00(Same as:Robaxin) No Longer Active Mougouris 11/16/2013 [facility] Imodium A-D 2 mg, 10 mL, Route : PO, Drug form: LIQ, Q6H, Dosing Weight 72.273, kg, PRN Diarrhea, Start date: 11/16/13 17:46:00, Duration: 30 day, Stop date: 12/16/13 17:45:00(Same as: Imodium) No Longer Active Mougouris 11/16/2013 [facility] Imodium A-D 4 mg, 20 mL, Route : PO, Drug form: LIQ, Q6H, Dosing Weight 72.273, kg, PRN Diarrhea, Start date: 11/16/13 17:45:00, Duration: 30 day, Stop date: 12/16/13 17:44:00(Same as: Imodium) No Longer Active Mougouris 11/16/2013 [facility] Robaxin + Sodium Chloride 0.9% IV 240 mL 1,000 mg, 10 mL, Route: IV, Drug form: INJ, ONCE, Dosing Weight 72.273, kg, Start date: 11/16/13 12:45:00, Stop date: 11/16/13 12:45:00(Same as:Robaxin) Inactive Mougouris 11/16/2013 [facility] hydrocortisone 5 mg oral tablet 10 mg = 2 tab, PO, Daily, # 90 tab, 0 Refill(s) Active Mena 11/16/2013 [facility] hydrocortisone 10 mg, 1 tab, R oute: PO, Drug form: TAB, QAM, Dosing Weight 72.273, kg, Start date: 11/16/13 9:00:00, Duration: 30 day, Stop date: 12/15/13 9:00:00(Same as: Cortef) Take with food. No Longer Active Mena 11/16/2013 [facility] nystatin topical 100,000 units/g powder 1 appl, Route: TOP, QID, Drug form: PWDR, Start date: 11/15/13 17:00:00, Duration: 30 day, Stop date: 12/15/13 13:00:00(Same as:Mycostatin, Nilstat) For external use only. No Longer Active Mougouris 0 11/15/2013 [facility] hydrocortisone 5 mg, 1 tab, [place]: PO, Drug form: TAB, Q2PM, Dosing Weight 72.273, kg, Start date: 11/15/13 14:00:00, Stop date: 12/14/13 14:00:00(Same as: Cortef) No Longer Active Mena 11/15/2013 [facility] Protonix 40 mg, 1 tab, Route: PO, Drug form: ECTAB, Before Breakfast, Start date: 11/15/13 7:30:00, Duration: 30 day, Stop date: 12/14/13 7:30:00Tablet should not be chewed or crushed. (Same as: Protonix) No Longer Active Mougouris 0 11/15/2013 [facility] pantoprazole 40 mg, Route: PO, Drug form: INJ, Before Breakfast, Dosing Weight 72.273, kg, Start date: 11/14/13 7:30:00, Duration: 30 day, Stop date: 12/13/13 7:30:00For IV push reconstitute with 10 ml 0.9% sodium chloride and push over 2 minutes. (Same as: Protonix) Inactive Mougouris 11/14/2013 [facility] carvedilol 3.125 mg, Route: PO , Drug form: TAB, Q12H, Dosing Weight 72.273, kg, Start date: 11/13/13 21:00:00, Duration: 30 day, Stop date: 12/13/13 9:00:00 Inactiv e Mougouris 11/14/2013 [facility] Topamax 50 mg, 2 tab, Route: P O, Drug form: TAB, Bedtime, Dosing Weight 72.273, kg, Start date: 11/13/13 21:00:00, Duration: 30 day, Stop date: 12/12/13 21:00:00(Same As: Topamax) "Do Not Crush" No Longer Active Mougouris 11/14/2013 [facility] simvastatin 10 mg, Route: PO, Drug form: TAB, Bedtime, Dosing Weight 72.273, kg, Start date: 11/13/13 21:00:00, Duration: 30 day, Stop date: 12/12/13 21:00:00 Inactive Mougour 11/14/2013 [facility] Renvela 2,400 mg, 3 tab, Route : PO, Drug form: TAB, TID- Meals, Dosing Weight 72.273, kg, Start date: 11/13/13 17:00:00, Duration: 30 day, Stop date: 12/13/13 12:00:00Same as: Renvela No Longer Active 11/13/2013 [facility] Epogen (ESRD) 10,000 unit, 1 m L, Route: SUB-Q, Drug form: INJ, Q-M-W-F, Dosing Weight 72.273, kg, Start date: 11/13/13 17:00:00, Duration: 30 day, Stop date: 12/11/13 17:00:00(Same as: Procrit) epoetin shilpi 86891 unit/1 ml VL. No Longer Active Rajesh 11/13/2013 [facility] Lyrica 75 mg, 1 cap, Route: PO , Drug form: CAP, BID, Dosing Weight 72.273, kg, Start date: 11/13/13 17:00:00, Duration: 30 day, Stop date: 12/13/13 9:00:00(Same as: Lyrica) No Longer Active Mougour 11/13/2013 [facility] oxybutynin 5 mg, 1 tab, Route: PO, Drug form: TAB, BID, Dosing Weight 72.273, kg, Start date: 11/13/13 17:00:00, Duration: 30 day, Stop date: 12/13/13 9:00:00Same as: Ditropan) No Longer Active [facility] 11/13/2013 [facility] gabapentin 300 mg oral capsule 300 mg, 1 cap, Route: PO, Drug form: CAP, BID, Dosing Weight 72.273, kg, Start date: 11/13/13 17:00:00, Duration: 30 day, Stop date: 12/13/13 9:00:00(Same as: Neurontin) [facility]2013 [facility] carvedilol 3.125 mg, 1 tab, [place]: PO, Drug form: TAB, BID, Dosing Weight 72.273, kg, Start date: 11/13/13 17:00:00, Duration: 30 day, Stop date: 12/13/13 9:00:00Give with food. (Same As: Coreg) No Longer Active Rajesh 11/13/2013 [facility] rOPINIRole 0.25 mg, 1 tab, Rou te: PO, Drug form: TAB, TID, Dosing Weight 72.273, kg, Start date: 11/13/13 13:00:00, Duration: 30 day, Stop date: 12/13/13 9:00:00(Same as: Requip) No Longer Active [facility] 11/13/2013 [facility] tramadol 50 mg oral tablet 50 mg, 1 tab, Route: PO, Drug form: TAB, TID, Dosing Weight 72.273, kg, Start date: 11/13/13 13:00:00, Duration: 30 day, Stop date: 12/13/13 9:00:00Not to exceed 400mg/day. (Same As: Ultram) No Longer Active [facility] 11/13/2013 [facility] promethazine 25 mg, 1 tab, Rou te: PO, Drug form: TAB, Q8H, Dosing Weight 72.273, kg, PRN as needed for nausea/vomiting, Start date: 11/13/13 12:22:00, Duration: 30 day, Stop date: 12/13/13 12:21:00(Same as: Phene rgan) No Longer Active [facility] 11/13/2013 [facility] oxybutynin 5 mg, Route: PO, Dr ug form: TAB, BID, Dosing Weight 72.273, kg, PRN, Start date: 11/13/13 12:22:00, Duration: 30 day, Stop date: 12/13/13 12:21:00, urinary spasm Inactive Mo ugouris 11/13/2013 [facility] Nitrostat 0.4 mg sublingual tablet 0.4 mg, 1 tab, Route: SL, Drug form: TAB, Q5Min, Dosing Weight 72.273, kg, PRN as needed for chest pain, Start date: 11/13/13 12:21:00, Duration: 30 day, Stop date: 12/13/13 12:20:00(Same as:Nitroquick, Nitrostat) "Do Not Crush" Sublingual tablet No Longer Active Mougouris 0 11/13/2013 [facility] midodrine 10 mg, 2 tab, Route: PO, Drug form: TAB, During Dialysis, Dosing Weight 72.273, kg, PRN Hypotension, Start date: 11/13/13 12:21:00, Duration: 30 day, Stop date: 12/13/13 12:20:00(Same as:Proamatine) No Longer Active Mougouris 0 11/13/2013 [facility] Flexeril 5 mg, 0.5 tab, Route: PO, Drug form: TAB, PRN, Dosing Weight 72.273, kg, PRN Muscle Spasms, Start date: 11/13/13 12:21:00, Duration: 30 day, Stop date: 12/13/13 12:20:00(Same As: Flexeril) No Longer Active Mougouris 11/13/2013 [facility] Ambien 5 mg, 1 tab, Route: PO, Drug form: TAB, Bedtime, Dosing Weight 72.273, kg, PRN Insomnia, Start date: 11/12/13 17:09:00, Duration: 30 day, Stop date: 12/12/13 17:08:00(Same As: Ambien) No Longer Active Seerangan 11/12/2013 [facility] Phenergan 25 mg, 1 mL, Route: IVP Central, Drug form: INJ, Q4H, Dosing Weight 72.273, kg, PRN Nausea & Vomiting, Start date: 11/12/13 9:14:00, Duration: 30 day, Stop date: 12/12/13 9:13:00Do not give IV push. (Same as: Phenergan) No Longer Active 11/12/2013 [facility] sterile water 300 mL + Dextrose 50% in Water IV 100 gm 300 mL, 60 ml/hr, Route: IVP, Drug Form: INJ, Dosing Weight 72.273, kg, Start date: 11/11/13 19:13:00, Duration: 30 day, Stop date: 12/11/13 19:12:00 No Longer Active Mena 11/12 [facility] D20W 500 mL 500 mL, Rate: 60 m l/hr, Infuse over: 8.3 hr, Route: IV, Dosing Weight 72.273 kg, Total Volume: 500, Start date: 11/11/13 18:40:00, Stop date: 12/12/13 18:39:00 Inactive eranglisa 11/12/2013 [facility] Phenergan 25 mg, 1 mL, Route: IM, Drug form: INJ, Q6H, Dosing Weight 72.273, kg, PRN Nausea & Vomiting, Start date: 11/11/13 14:33:00, Duration: 30 day, Stop date: 12/11/13 14:32:00Do not give IV push. (Same as: Phenergan) No Longer Active 11/11/2013 [facility] Phenergan 25 mg, 1 tab, Route: PO, Drug form: TAB, Q4H, Dosing Weight 72.273, kg, PRN Nausea & Vomiting, Start date: 11/11/13 13:18:00, Duration: 30 day, Stop date: 12/11/13 13:17:00(Same as: Phenergan) No Longer Active 11/11/2013 [facility] promethazine 25 mg oral tablet 25 mg = 1 tab, PO, Q8H, as needed for nausea/vomiting, 0 Refill(s) Active Moug [facility] 11/11/2013 [facility] oxybutynin 5 mg oral tablet 5 mg = 1 tab, PO, BID, Other-See Comments, # 30 tab, 0 Refill(s) Active Moug [facility] 11/11/2013 [facility] Levemir FlexPen 16 units in AM , 70 units in PM, SUB-Q, BID, 0 Refill(s) No Longer Active 11/11/2013 [facility] tramadol 50 mg oral tablet See Instructions, TID, 1 tab, 0 Refill(s)1 tab [facility] simvastatin 10 mg oral tablet 10 mg = 1 tab, PO, Bedtime, # 30 tab, 0 [facility] carvedilol 3.125 mg oral tablet 3.125 mg = 1 tab, PO, BID, on days without HD, # 180 tab, 0 Refill(s)on days without HD [facility] midodrine 10 mg oral tablet 10 mg = 1 tab, PO, 0 Refill(s) Active 11/11/2013 [facility] NovoLOG Mix 70/30 FlexPen 30 u nits breakfast, 26 units lunch, 30 units dinne, 0 Refill(s) No Longer Active 11/11/2013 [facility] rOPINIRole 0.25 mg oral tablet 0.25 mg = 1 tab, PO, TID, # 90 tab, 0 [facility]ill[facility]s) [facility] Topomax Topomax, 50 mg =, PO, Bedtime, Refill(s) 0 Active 11/11/2013 [facility] Flexeril 5 mg oral tablet See Instructions, Muscle Spasms, 0 Refill(s) Active 11/11/2013 [facility] morphine Sulfate 2 mg, 1 mL, R oute: IVP, Drug form: INJ, Q4H, Dosing Weight 72.273, kg, PRN Pain, Start date: 11/10/13 21:08:00, Duration: 30 day, Stop date: 12/10/13 21:07:00(Same as:MORPhine Sulfate) No Longer Active Roeschula 11/11/2013 [facility] pantoprazole 40 mg, Route: IVP , Drug form: INJ, Daily, Dosing Weight 75, kg, Priority: Routine, Start date: 11/10/13 9:00:00, Duration: 30 day, Stop date: 12/09/13 9:00:00For IV push reconstitute with 10 ml 0.9% sod ium chloride and push over 2 minutes. (Same as: Protonix) No Longer Active Alexsander 11/10/2013 [facility] nitroglycerin 0.4 mg sublingual tablet 0.4 mg, 1 tab, Route: SL, Drug form: TAB, Q5Min, PRN Chest Pain, Start date: 11/10/13 6:27:00, Duration: 30 day, Stop date: 12/10/13 6:26:00(Same as:Nitroquick, Nitrostat) "Do Not Crush" Sublingual tablet No Longer Active [facility] 11/10/2013 [facility] atropine 0.5 mg, 5 mL, Route: IVP, Drug form: INJ, PRN, PRN Bradycardia, Start date: 11/10/13 6:26:00, Duration: 30 day, Stop date: 12/10/13 6:25:00 No Longer Active [facility] 11/10/2013 [facility] Zofran 4 mg, 2 mL, Route: IV, Drug form: INJ, Q4H, Dosing Weight 75, kg, PRN as needed for nausea/vomiting, Start date: 11/10/13 6:15:00, Duration: 30 day, Stop date: 12/10/13 6:14:00(Same as: Zofran) No Longer Active [facility] acetaminophen 650 mg, 20.3 mL, Route: PO, Drug form: LIQ, Q4H, Dosing Weight 75, kg, PRN Pain 1-3/Temp > 100.4 F, Start date: 11/10/13 6:15:00, Stop date: 12/10/13 6:14:00Max acetaminophen = 4000mg/day (4 gm/day). (Same as: Tylenol) N o Longer Active Mougouris 11/10/2013 [facility] acetaminophen-hydrocodone 325 mg-5 mg oral tablet 1 tab, Route: PO, Drug Form: TAB, Dosing Weight 75, kg, Q4H, PRN Pain Score 1-3, Start date: 11/10/13 6:15:00, Duration: 30 day, Stop date: 12/10/13 6:14:00(Same as: [place] 325/5) Do not exceed 4gm/day of acetaminophen. No Longer Active Agraharkar 11/10/2013 [facility] docusate 100 mg, 1 cap, Route: PO, Drug form: CAP, BID, Dosing Weight 75, kg, PRN Constipation, Start date: 11/10/13 6:15:00, Duration: 30 day, Stop date: 12/10/13 6:14:00(Same as: Colace) (Do Not Crush) No Longer Active Jaspreet 11/10/2013 [facility] sodium chloride 154 mEq + Dextrose 10% i n Water IV 961.5 mL 961.5 mL, Rate: 100 ml/hr, Infuse over: 10 hr, Route: IV, Dosing Weight 75 kg, Total Volume: 1,000, Start date: 11/10/13 4:12:00, Stop date: 12/10/13 4:11:00 No Longer Active Seerangan 11/10/2013 [facility] D10NS 1000 mL 1,000 mL, Rate: 125 ml/hr, Infuse over: 8 hr, Route: IV, Dosing Weight 75 kg, Total Volume: 1,000, Start date: 11/10/13 4:08:00, Duration: 30 day, Stop date: 12/10/13 4:07:00 Inactive Stepan 11/10/2013 [facility] Flagyl 500 mg, 1 tab, Route: P O, Drug form: TAB, ABXQ8H, Dosing Weight 89.5, kg, Start date: 08/10/13 14:00:00, Duration: 30 day, Stop date: 09/09/13 6:00:00(Same as: Flagyl) Take with food/ avoid alcohol Inactive Rahim 08/10/2013 [facility] influenza virus vaccine, inactivated 0.5 ml, Route: IM, Drug Form: SUSP, Start date: 08/10/13 11:00:00, Stop date: 08/10/13 11:00:00 Inactive SYSTEM 08/10/2013 [facility] Neutra-Phos 1 pkt, Route: PO, Drug Form: PDR/REC, Dosing Weight 89.5, kg, ONCE, Start date: 08/10/13 10:14:00, Stop date: 08/10/13 10:14:00(Same as: Neutra-Phos) Each 1.25 gm pkt has 250mg phosphorous. Mix w/2. 5oz water and stir. Inactive Mena 08/10/2013 [facility] ciprofloxacin 250 mg oral tablet 250 mg, 1 tab, PO, [id number], 20 tab, Substitution Allowed, TAB Active [facility] 08/10/2013 [facility] Cipro 250 mg, 1 tab, Route: PO , Drug form: TAB, [id number], Dosing Weight 89.5, kg, Start date: 08/10/13 8:00:00, Duration: 30 day, Stop date: 09/08/13 20:00:00May interfere w/enteral feedings - Take 1 hr before or 2 hrs after antacids, dairy pdt & minerals. On empty stomach. Inactive [facility] 08/10/2013 [facility] Flagyl 500 mg oral tablet 500 mg, 1 tab, PO, ABXQ8H, 30 tab, Substitution Allowed, TAB Active [facility] 08/10/2013 [facility] Neurontin 100 mg, 1 cap, Route : PO, Drug form: CAP, TID, Dosing Weight 89.5, kg, Start date: 08/09/13 17:00:00, Duration: 30 day, Stop date: 09/08/13 13:00:00(Same as: Neurontin) No Longer Active Mena 08/09/2013 [facility] Protonix 40 mg, 1 tab, Route: PO, Drug form: ECTAB, Before Dinner, Start date: 08/09/13 16:30:00, Duration: 30 day, Stop date: 09/07/13 16:30:00Tablet should not be chewed or crushed. (Same as: Protonix) No Longer Active [facility] 08/09 [facility] Epogen (ESRD) 3,000 unit, Rout e: SUB-Q, Q-M-W-F, Dosing Weight 92.869, kg, Start date: 08/09/13 9:00:00, Duration: 30 day, Stop date: 09/08/13 8:59:00 No Longer Active Mena 08/09/2013 [facility] Dilaudid 1 mg, 1 mL, Route: IV , Drug form: INJ, Q3H, Dosing Weight 92.869, kg, PRN Pain Score 4-6, Start date: 08/08/13 21:03:00, Duration: 30 day, Stop date: 09/07/13 21:02:00 No Longer Active Candace 08/09/2013 [facility] Epogen (ESRD) 3,000 unit, 1 mL , Route: SUB-Q, Drug form: INJ, Q-M-W-F, Dosing Weight 81.818, kg, Start date: 08/07/13 9:00:00, Duration: 30 day, Stop date: 09/06/13 8:59:00(Same as: Procrit) epoetin shilpi 3000 unit/1 ml VL. No Longer Active [facility] 08/07/2013 [facility] potassium chloride 40 mEq, 2 t ab, Route: PO, Drug form: ERTAB, ONCE, Dosing Weight 92.869, kg, Priority: NOW, Start date: 08/07/13 5:44:00, Stop date: 08/07/13 5:44:00(Same as: K-Dur 20) "Do Not Crush" With food and full glass of water Inactive [facility] 08/07/2013 [facility] Protonix 40 mg, Route: IVP, Dr ug form: INJ, Before Dinner, Dosing Weight 81.818, kg, Patient is NPO, Start date: 08/06/13 16:30:00, Duration: 30 day, Stop date: 09/05/13 16:29:00For IV push reconstitute with 10 ml 0.9% sodium chloride and push over 2 minutes. (Same as: Protonix) No Longer Active [facility] 08/06/2013 [facility] Cipro 400 mg, 200 mL, Route: I VPB, Drug form: INJ, [id number], Start date: 08/06/13 16:00:00, Duration: 30 day, Stop date: 09/05/13 20:59:00Do not refrigerate No Longer Active Rajesh 08/06/2013 [facility] potassium chloride 20 mEq, 1 t ab, Route: PO, Drug form: ERTAB, ONCE, Dosing Weight 81.818, kg, Start date: 08/06/13 10:49:00, Stop date: 08/06/13 10:49:00(Same as: K-Dur 20) "Do Not Crush" With food and full glass of water Inactive [facility] 1 [facility] ropinirole 0.25 mg, 1 tab, Rou te: PO, Drug form: TAB, TID, Dosing Weight 81.818, kg, Start date: 08/06/13 9:00:00, Duration: 30 day, Stop date: 09/05/13 8:59:00(Same as: Requip) No Longer Active [facility] 08/06/2013 [facility] Lyrica 75 mg, 1 cap, Route: PO , Drug form: CAP, BID, Dosing Weight 81.818, kg, Start date: 08/06/13 9:00:00, Duration: 30 day, Stop date: 09/05/13 8:59:00(Same as: Lyrica) No Longer Active Rajesh 08/06/2013 [facility] oxybutynin 5 mg, 1 tab, Route: PO, Drug form: TAB, BID, Dosing Weight 81.818, kg, Start date: 08/06/13 9:00:00, Duration: 30 day, Stop date: 09/05/13 8:59:00Same as: Ditropan) No Longer Active [facility] 08/06/2013 [facility] gabapentin 300 mg oral capsule 300 mg, 1 cap, Route: PO, Drug form: CAP, BID, Dosing Weight 81.818, kg, Start date: 08/06/13 9:00:00, Duration: 30 day, Stop date: 09/05/13 8:59:00(Same as: Neurontin) No Longer Active Mena 08/06/2013 [facility] Renvela 2,400 mg, 3 tab, Route : PO, Drug form: TAB, TID- Meals, Dosing Weight 81.818, kg, Start date: 08/06/13 8:00:00, Duration: 30 day, Stop date: 09/05/13 7:59:00Same as: Renvela No Longer Active Mena 08/06/2013 [facility] heparin 5,000 unit, 1 mL, Rout e: SUB-Q, Drug form: INJ, Q8H, Dosing Weight 81.818, kg, Start date: 08/06/13 0:00:00, Duration: 30 day, Stop date: 09/04/13 23:59:00porcine heparin No Longer Active [facility] 08/06/2013 [facility] Topamax 50 mg, 2 tab, Route: P O, Drug form: TAB, Bedtime, Dosing Weight 81.818, kg, Start date: 08/05/13 21:00:00, Duration: 30 day, Stop date: 09/04/13 20:59:00(Same As: Topamax) "Do Not Crush" No Longer Active [facility] 08/06/2013 [facility] simvastatin 10 mg, 1 tab, Rout e: PO, Drug form: TAB, Bedtime, Dosing Weight 81.818, kg, Start date: 08/05/13 21:00:00, Duration: 30 day, Stop date: 09/04/13 20:59:00(Same as: Zocor) No Longer Active [facility] 08/06/2013 [facility] carvedilol 3.125 mg, 1 tab, [place]: PO, Drug form: TAB, Q12H, Dosing Weight 81.818, kg, Start date: 08/05/13 21:00:00, Duration: 30 day, Stop date: 09/04/13 20:59:00Give with food. (Same As: Coreg) No Longer Active [facility] 08/06/2013 [facility] nitroglycerin 0.4 mg sublingual tablet 0.4 mg, 1 tab, Route: SL, Drug form: TAB, Q5Min, PRN Chest Pain, Start date: 08/05/13 18:28:00, Duration: 30 day, Stop date: 09/04/13 17:27:00(Same as:Nitroquick, Nitrostat) "Do Not Crush" Sublingual tablet No Longer Active [facility] 08/05/2013 [facility] atropine 0.5 mg, 5 mL, Route: IVP, Drug form: INJ, PRN, PRN Bradycardia, Start date: 08/05/13 18:28:00, Duration: 30 day, Stop date: 09/04/13 17:27:00 No Longer Active [facility] 08/05/2013 [facility] insulin aspart 12 unit, 0.12 m L, [...] in days from Date No Longer Active [facility] 08/05/2013 [facility] glucagon 1 mg, Route: IM, Drug form: PDR/INJ, PRN, Dosing Weight 81.818, kg, PRN Blood Glucose Results, Start date: 08/05/13 18:18:00, Duration: 30 day, Stop date: 09/04/13 17:17:00 No Longer Active [facility] 08/05/2013 [facility] Dextrose 50% Syringe 25 gm, 50 mL, Route: IVP, Drug Form: INJ, Dosing Weight 81.818, kg, PRN, PRN Blood Glucose Results, Start date: 08/05/13 18:18:00, Duration: 30 day, Stop date: 09/04/13 17:17:00 No Longer Active [facility] 08/05/2013 [facility] Dilaudid 2 mg, 2 mL, Route: IV , Drug form: INJ, Q3H, Dosing Weight 81.818, kg, PRN Pain Score 7-10, Start date: 08/05/13 18:17:00, Duration: 30 day, Stop date: 09/04/13 18:16:00 No Longer Active [facility] 08/05/2013 [facility] midodrine 10 mg, 2 tab, Route: PO, Drug form: TAB, During Dialysis, Dosing Weight 81.818, kg, PRN Bradycardia, Start date: 08/05/13 18:14:00, Duration: 30 day, Stop date: 09/04/13 17:13:00(Same as:Proamatine) No Longer Active [facility] 08/05 [facility] Nitrostat 0.4 mg sublingual tablet 0.4 mg, 1 tab, Route: SL, Drug form: TAB, Q5Min, Dosing Weight 81.818, kg, PRN as needed for chest pain, Start date: 08/05/13 18:14:00, Duration: 30 day, Stop date: 09/04/13 17:13:00 Inactive [facility] 08/05 [facility] potassium chloride 20 mEq, 1 t ab, Route: PO, Drug form: ERTAB, ONCE, Dosing Weight 81.818, kg, Start date: 08/05/13 17:57:00, Stop date: 08/05/13 17:57:00(Same as: K-Dur 20) "Do Not Crush" With food and full glass of water Inactive Seerangan 1 [facility] ondansetron 4 mg, 2 mL, Route: IVP, Drug form: INJ, Q8H, Dosing Weight 81.818, kg, PRN Nausea & Vomiting, Start date: 08/05/13 17:33:00, Duration: 30 day, Stop date: 09/04/13 17:32:00(Same as: Zofran) No Longer Active [facility] 08/05/2013 [facility] acetaminophen 650 mg, 20.3 mL, Route: PO, Drug form: LIQ, Q4H, Dosing Weight 81.818, kg, PRN Pain 1-3/Temp > 100.4 F, Start date: 08/05/13 17:33:00, Duration: 30 day, Stop date: 09/04/13 17:32:00Max acetaminophen = 4000mg/day (4 gm/day). (Same as: Tylenol) No Longer Active [facility] 08/05/2013 [facility] Flagyl 500 mg, 100 mL, Route: IVPB, Drug form: INJ, Q6H, Dosing Weight 81.818, kg, Priority: STAT, Start date: 08/05/13 17:33:00, Duration: 30 day, Stop date: 09/04/13 6:00:00(Same as: Flagyl) Avoid alcohol. No Longer Active [facility] 08/05 [facility] Cipro 400 mg, Route: IVPB, Q12 H, Dosing Weight 81.818, kg, Priority: STAT, Start date: 08/05/13 17:33:00, Duration: 30 day, Stop date: 09/04/13 17:32:00 Inactive [facility] 08/05/2013 [facility] ondansetron 4 mg, Route: IVP, Drug form: INJ, ONCE, Dosing Weight 81.818, kg, Start date: 08/05/13 17:04:00, Stop date: 08/05/13 17:04:00 Inactive Walters 09/2013 [facility] Cipro 400 mg, Route: IVPB, ONC E, Dosing Weight 81.818, kg, Start date: 08/05/13 16:02:00, Stop date: 08/05/13 16:02:00 Inactive Walters 08/05/2013 [facility] Flagyl 500 mg, Route: IVPB, ON CE, Dosing Weight 81.818, kg, PRN, Start date: 08/05/13 16:01:00, stat Inactive [facility] 08/05/2013 [facility] Novolog Mix 70/30 PenFill subcutaneous suspension 4-12 units, SUB-Q, Sliding Scale, PRN, 4 units (BS 180-200) 8 units (BS 201-250) 10 units (BS 251-300) 12 units (BS 301-400), blood glucose, Substitution Allowed4 units (BS 180-200) 8 units (BS 201-250) 10 units (BS 251-300) 12 units (BS 301- 400) Active 08/05/2013 [facility] Topamax 50 mg oral tablet 50 m g, 1 tab, PO, Bedtime, 60 tab, Substitution Allowed, TAB Active [facility] 08/05/2013 [facility] Nitrostat 0.4 mg sublingual tablet 0.4 mg, 1 tab, SL, Q5Min, PRN, 100 tab, Chest Pain, Substitution Allowed Active [facility] 08/05/2013 [facility] Midrin 1 cap, PO, PRN, PRN, [place] headache, Substitution Allowed, Maintenance Active 08/05/2013 [facility] Flexeril 5 mg oral tablet 5 mg , 1 tab, PO, PRN, PRN, muscle spasms, Substitution Allowed Active 08/05/2013 [facility] Children midodrine 10 mg oral tablet 10 mg, 1 tab, PO, During Dialysis, Dialysis M-W-F, 270 tab, Substitution Allowed, TABDialysis M-W-F Active 08/05/2013 [facility] Lyrica 75 mg oral capsule 75 m g, 1 cap, PO, BID, 90 cap, Substitution Allowed, CAP Active [facility] 08/05/2013 [facility] gabapentin 300 mg oral capsule 300 mg, 1 cap, PO, BID, 90 cap, Substitution Allowed Active [facility] 08/05/2013 [facility] Zofran 4 mg, Route: IVP, Drug form: INJ, ONCE, Dosing Weight 81.818, kg, Priority: STAT, Start date: 08/05/13 9:11:00, Stop date: 08/05/13 9:11:00 Inactive [facility] 08/05/2013 [facility] morphine Sulfate 4 mg, Route: IVP, ONCE, Dosing Weight 81.818, kg, Priority: STAT, Start date: 08/05/13 7:09:00, Stop date: 08/05/13 7:09:00 Inactive [facility] 08/05 [facility] ondansetron 4 mg, Route: IVP, ONCE, Dosing Weight 81.818, kg, Priority: STAT, Start date: 08/05/13 7:09:00, Stop date: 08/05/13 7:09:00 Inactive [facility] 08/05 [facility] Saline Flush 0.9% 5 mL, Route: IVP, Drug Form: INJ, Dosing Weight 81.818, kg, PRN, PRN Line Flush, Start date: 08/05/13 7:09:00, Duration: 24 hr, Stop date: 08/06/13 7:08:00(Same as: BD Posiflush) Inactive [facility] 08/05/2013 [facility] morphine Sulfate 4 mg, Route: IVP, Drug form: INJ, ONCE, Dosing Weight 88, kg, Priority: STAT, Start date: 08/03/13 18:05:00, Stop date: 08/03/13 18:05:00 Inactive [place] 08/03/2013 [facility] pantoprazole 40 mg oral enteric coated tablet 40 mg, 1 tab, PO, Daily, 30 tab, Substitution Allowed, ECTAB No Longer Active [place] 08/03/2013 [facility] Vicodin 5/500 oral tablet 1-2 tablets, PO, Q4-6H, PRN, 30 tab, for Pain, Substitution Allowed, Maintenance On Hold [facility] 08/03/2013 [facility] Phenergan 25 mg oral tablet 25 mg, 1 tab, PO, Q4H, PRN, 25 tab, Nausea, Substitution Allowed On Hold [facility] 08/03/2013 [facility] Carafate 1 g oral tablet 1 gm, 1 tab, PO, QID-Before Meals, 120 tab, Substitution Allowed No Longer Active [place] 08/03/2013 [facility] Phenergan 25 mg, Route: IM, ON CE, Dosing Weight 88, kg, Priority: STAT, Start date: 08/03/13 16:57:00, Stop date: 08/03/13 16:57:00 Inactive [place] 08/03/2013 [facility] Dextrose 50% Syringe 25 gm, [place]: IVP, Dosing Weight 88, kg, ONCE, STAT, Start date: 08/03/13 16:40:00, Stop date: 08/03/13 16:40:00 Inactive [place] 07/2013 [facility] morphine Sulfate 4 mg, Route: IVP, Drug form: INJ, ONCE, Dosing Weight 88, kg, Priority: STAT, Start date: 08/03/13 15:49:00, Stop date: 08/03/13 15:49:00 Inactive [place] 08/03/2013 [facility] Saline Flush 0.9% 5 mL, Route: IVP, Drug Form: INJ, Dosing Weight 88, kg, PRN, PRN Line Flush, Start date: 08/03/13 15:17:00, Duration: 24 hr, Stop date: 08/04/13 15:16:00(Same as: BD Posiflush) No Longer Active [place] 08/03/2013 [facility] ondansetron 4 mg, Route: IVP, ONCE, Dosing Weight 88, kg, Priority: STAT, Start date: 08/03/13 15:17:00, Stop date: 08/03/13 15:17:00 Inactive [place] 07/2013 [facility] Carafate 1 g oral tablet 1 gm, 1 tab, PO, QID-Before Meals, 120 tab, Substitution Allowed, TAB No Longer Active [place] 07/30/2013 [facility] Phenergan 25 mg oral tablet 25 mg, PO, Q4H, PRN, 30 tab, Allergic reaction, Substitution Allowed, TAB No Longer Active Erlinxochitl 07/30/2013 [facility] Phenergan 25 mg, 1 tab, Route: PO, Drug form: TAB, Q4H, Dosing Weight 90.909, kg, PRN Allergic reaction, Start date: 07/30/13 11:33:00, Duration: 30 day, Stop date: 08/29/13 11:32:00(Same as: Phenergan) Inactive Alexsander 07/30/2013 [facility] Carafate 1 g/10 mL oral suspension 1 gm, 1 tab, Route: PO, Drug form: TAB, QID-Before Meals, Dosing Weight 90.909, kg, Start date: 07/28/13 13:00:00, Stop date: 08/27/13 11:30:00May interfere w/enteral feeds - Take 1 hr before or 2 hr after antacids, dairy pdt, meals & minerals - On empty stomach. (Same As: Carafate) No Longer Active Mina 07/28/2013 [facility] morphine Sulfate 2 mg, 1 mL, R oute: IVP, Drug form: INJ, Q6H, Dosing Weight 90.909, kg, PRN Pain Score 6-10, Start date: 07/27/13 11:32:00, Duration: 30 day, Stop date: 08/26/13 11:31:00(Same as:MORPhine Sulfate) No Longer Active Rajesh 07/27/2013 [facility] morphine Sulfate 2 mg, Route: IVP, Q4H, Dosing Weight 90.909, kg, PRN Pain, Start date: 07/27/13 11:31:00, Duration: 30 day, Stop date: 08/26/13 11:30:00 Inactive Rajesh 07/27/2013 [facility] Reglan 5 mg, 1 mL, Route: IV, Drug form: INJ, Q6H, Start date: 07/27/13 0:00:00, Duration: 30 day, Stop date: 08/25/13 18:00:00(Same as: Reglan) No Longer Active Raejsh 07/27/2013 [facility] epoetin shilpi 2,000 unit, 1 mL, Route: SUB-Q, Drug form: INJ, Q-M-W-F, Start date: 07/26/13 17:00:00, Duration: 30 day, Stop date: 08/23/13 17:00:00(Same as: Procrit) epoetin shilpi 2000 unit/1 ml VL No Longer Active Rajesh 07/26/2013 [facility] Epogen (ESRD) 3,000 unit, 1 mL , Route: SUB-Q, Drug form: INJ, Q-M-W-F, Dosing Weight 90.909, kg, Start date: 07/26/13 17:00:00, Duration: 30 day, Stop date: 08/23/13 17:00:00(Same as: Procrit) epoetin shilpi 3000 unit/1 ml VL. No Longer Active Rajesh 07/26/2013 [facility] Reglan 10 mg oral tablet 10 mg , 1 tab, Route: PO, Drug form: TAB, TID-Before Meals, Dosing Weight 90.909, kg, Start date: 07/26/13 16:30:00, Duration: 30 day, Stop date: 08/25/13 11:30:00(Same as: Reglan) Take 30 min before meals Inactive Rajesh 07/26/2013 [facility] NS 1,000 mL 1,000 mL, Rate: 40 ml/hr, Infuse over: 25 hr, Route: IV, Dosing Weight 90.909 kg, Total Volume: 1,000, Start date: 07/25/13 14:44:00, Duration: 1 day, Stop date: 07/26/13 14:43:00 No Longer Active Rajesh 07/25/2013 [facility] Novolog Mix 70/30 PenFill 26 u nit, [...] from Date No Longer Active Alexsander 07/25/2013 [facility] insulin detemir 16 unit, 0.16 mL, Route: SUB-Q, Drug form: INJ, QAM, Dosing Weight 90.909, kg, Start date: 07/25/13 9:00:00, Duration: 30 day, Stop date: 08/23/13 9:00:00Same as Levemir "single patient use only" No Longer Active Erlinugxochitl 07/25/2013 [facility] Novolog Mix 70/30 PenFill 30 u nit, [...] from Date No Longer Active Mougouris 07/25/2013 [facility] pantoprazole 40 mg, 1 tab, Rou te: PO, Drug form: ECTAB, Before Breakfast, Dosing Weight 90.909, kg, Start date: 07/25/13 7:30:00, Duration: 30 day, Stop date: 08/23/13 7:30:00Tablet should not be chewed or crushed. (Same as: Protonix) N o Longer Active Mougouris 07/25/2013 [facility] Sodium Chloride 0.9% IV IV, 0 ml/hr, ONCE, Start date: 07/25/13 4:21:00, 1,000 ml Inactive [facility] 07/25/2013 [facility] simvastatin 10 mg, 1 tab, Rout e: PO, Drug form: TAB, Bedtime, Dosing Weight 90.909, kg, Start date: 07/24/13 21:00:00, Duration: 30 day, Stop date: 08/22/13 21:00:00(Same as: Zocor) No Longer Active Mougouris 07/25/2013 [facility] carvedilol 3.125 mg, 1 tab, [place]: PO, Drug form: TAB, Q12H, Dosing Weight 90.909, kg, Start date: 07/24/13 21:00:00, Duration: 30 day, Stop date: 08/23/13 9:00:00Give with food. (Same As: Coreg) No Longer Active Cardenas 07/25/2013 [facility] Renvela 2,400 mg, 3 tab, Route : PO, Drug form: TAB, TID- Meals, Dosing Weight 90.909, kg, Start date: 07/24/13 17:00:00, Duration: 30 day, Stop date: 08/23/13 12:00:00Same as: Renvela No Longer Active Mougouris 07/24/2013 [facility] ropinirole 0.25 mg, 1 tab, Rou te: PO, Drug form: TAB, TID, Dosing Weight 90.909, kg, Start date: 07/24/13 17:00:00, Duration: 30 day, Stop date: 08/23/13 13:00:00(Same as: Requip) No Longer Active 07/24/2013 [facility] oxybutynin 5 mg, 1 tab, Route: PO, Drug form: TAB, BID, Dosing Weight 90.909, kg, Start date: 07/24/13 17:00:00, Duration: 30 day, Stop date: 08/23/13 9:00:00Same as: Ditropan) No Longer Active 07/24/2013 [facility] insulin detemir 50 unit, 0.5 m L, Route: SUB-Q, Drug form: INJ, QPM, Dosing Weight 90.909, kg, Start date: 07/24/13 17:00:00, Duration: 30 day, Stop date: 08/22/13 17:00:00Same as Levemir "single patient use only" No Longer Active [facility] 07/24/2013 [facility] Novolog Mix 70/30 PenFill 30 u nit, 0.3 mL, Route: SUB-Q, Drug form: INJ, Dinner, Dosing Weight 90.909, kg, Start date: 07/24/13 17:00:00, Duration: 30 day, Stop date: 08/22/13 17:00:00Roll in palms of hands gently; Do not shake vigorously. (Same as: NovoLog Mix) "single patient use only" Stable for 14 days at room temperature Expires in days from Date No Longer Active [facility] 07/24/2013 [facility] tramadol 50 mg oral tablet 50 mg, 1 tab, Route: PO, Drug form: TAB, Q4H, Dosing Weight 90.909, kg, PRN Pain Score 4-6, Start date: 07/24/13 15:01:00, Duration: 30 day, Stop date: 08/23/13 15:00:00Not to exceed 400mg/day. (Same As: Ultram) N o Longer Active [facility] 07/24/2013 [facility] promethazine 12.5 mg, 1 tab, R oute: PO, Drug form: TAB, Q4H, Dosing Weight 90.909, kg, PRN as needed for nausea/vomiting, Start date: 07/24/13 15:01:00, Duration: 30 day, Stop date: 08/23/13 15:00:00(Same as: Jordan mckeon) No Longer Active Mougouris 07/24/2013 [facility] acetaminophen-hydrocodone 325 mg-10 mg/1 5 mL oral solution 15 mL, Route: PO, Drug Form: ELIXOlena g Weight 90.909, kg, Q4H, PRN Pain Score 1-5, Start date: 07/24/13 15:00:00, Stop date: 08/23/13 14:59:00(acetaminophen-hydrocodone 334-5 mg/10 ml oral ELIX) Do not exceed 4gm/day of acetaminophen. No Longer Active Mougouris 07/24/2013 [facility] Renvela 800 mg oral tablet 2,4 00 mg, 3 tab, PO, TID- Meals, 270 tab, Substitution Allowed, TAB Active Moug ouris 07/24/2013 [facility] Novolog Mix 70/30 PenFill subcutaneous suspension 30 unit, SUB-Q, Dinner, 3 ml, Substitution Allowed, SUSP Active Mougouris 07/24/2013 [facility] Novolog Mix 70/30 PenFill subcutaneous suspension 26 unit, SUB-Q, Lunch, 3 ml, Substitution Allowed, SUSP Active Mougouris 07/24/2013 [facility] Novolog Mix 70/30 PenFill subcutaneous suspension 30 unit, SUB-Q, Breakfast, 3 ml, Substitution Allowed, SUSP Active Mougouris 07/24/2013 [facility] Levemir FlexPen 100 units/mL subcutaneous solution 70 unit, SUB-Q, QPM, 3 ml, Substitution Allowed, SOLN Active Mougouris 07/24/2013 [facility] Levemir FlexPen 100 units/mL subcutaneous solution 16 unit, SUB-Q, QAM, 3 ml, Substitution Allowed, SOLN Active Mougouris 07/24/2013 [facility] carvedilol 3.125 mg oral tablet 3.125 mg, 1 tab, PO, Q12H, takes after dialysis, on dialysis days (--), 60 tab, Substitution Allowed, TABtakes after dialysis, on dialysis days (--) Active Mougouris 07/24/2013 [facility] simvastatin 10 mg oral tablet 0, 1 tab, PO, Bedtime, 30 tab, Substitution Allowed Active Mougouris 07/24/2013 [facility] tramadol 50 mg oral tablet 50 mg, 1 tab, PO, Q4H, PRN, 60 tab, Pain, Substitution Allowed, TAB Active Moug is 07/24/2013 [facility] promethazine 12.5 mg oral tablet 12.5 mg, 1 tab, PO, Q4H, PRN, 60 tab, Nausea & Vomiting, Substitution Allowed, TAB No Longer Active Mougouris 07/24/2013 [facility] ropinirole 0.25 mg oral tablet 0.25 mg, 1 tab, PO, TID, 90 tab, Substitution Allowed, TAB Active Moug is 07/24/2013 [facility] oxybutynin 5 mg oral tablet 5 mg, 1 tab, PO, BID, 30 tab, Substitution Allowed, TAB Active Mougis 07/24/2013 [facility] docusate 100 mg, 1 cap, Route: PO, Drug form: CAP, BID, Dosing Weight 104.545, kg, PRN Constipation, Start date: 07/24/13 12:06:00, Duration: 30 day, Stop date: 08/23/13 12:05:00(Same as: Colace) (Do Not Crush) No Longer Active Faith 07/24 [facility] ondansetron 4 mg, 2 mL, Route: IVP, Drug form: INJ, Q8H, Dosing Weight 104.545, kg, PRN Nausea & Vomiting, Start date: 07/24/13 12:06:00, Duration: 30 day, Stop date: 08/23/13 12:05:00(Same as: Zofran) No Longer Active Faith 07/24 [facility] Reglan 5 mg, 1 mL, Route: IV, Drug form: INJ, Q6H, Dosing Weight 104.545, kg, Start date: 07/24/13 12:00:00, Duration: 30 day, Stop date: 08/23/13 6:00:00(Same as: Reglan) No Longer Active Mena 07/24/2013 [facility] NS 1,000 mL 1,000 mL, Rate: 40 ml/hr, Infuse over: 25 hr, Route: IV, Dosing Weight 104.545 kg, Total Volume: 1,000, Start date: 07/24/13 11:25:00, Duration: 30 day, Stop date: 08/23/13 11:24:00 No Longer Active Mena 07/24/2013 [facility] ondansetron 4 mg, Route: IVP, Drug form: INJ, ONCE, Dosing Weight 104.545, kg, Priority: STAT, Start date: 07/24/13 10:21:00, Stop date: 07/24/13 10:21:00 Inactive Faith 07/24/2013 [facility] potassium chloride 20 mEq oral tablet, extended releas e 20 mEq, 1 tab, Route: PO, Drug form: ERTAB, ONCE, Dosing Weight 104.545, kg, Priority: STAT, Start date: 07/24/13 8:26:00, Stop date: 07/24/13 8:26:00(Same as: K-Dur 20) "Do Not Crush" With food and full glass of water Inactive Faith 07/24/2013 [facility] Saline Flush 0.9% 5 mL, Route: IVP, Drug Form: INJ, Dosing Weight 104.545, kg, PRN, PRN Line Flush, Start date: 07/24/13 6:57:00, Duration: 24 hr, Stop date: 07/25/13 6:56:00Same as: BD Posiflush Sterile No Longer Active Faith 07/24 [facility] ondansetron 4 mg, 2 mL, Route: IVP, Drug form: INJ, ONCE, Dosing Weight 104.545, kg, Priority: STAT, Start date: 07/24/13 6:57:00, Stop date: 07/24/13 6:57:00(Same as: Zofran) Inactive Is gagnon 07/24/2013 [facility] morphine Sulfate 4 mg, Route: IVP, ONCE, Dosing Weight 104.545, kg, Priority: STAT, Start date: 07/24/13 6:57:00, Stop date: 07/24/13 6:57:00 Inactive Faith 07/24 [facility] docusate sodium 150 mg/15 mL oral liquid 100 mg, 10 ml, PO, Daily, 240 ml, Substitution Allowed, LIQ PO Active Marvin lowe 07/03/2013 [facility] ondansetron 4 mg oral disintegrating strip 4 mg, 1 ea, PO, Q4H, 30 strip, Substitution Allowed PO Active Marvin lowe 07/03/2013 [facility] docusate sodium 100 mg oral capsule 100 mg, 1 cap, PO, BID, 30 cap, Substitution Allowed PO No Longer Active Kill Buck 07/03/2013 [facility] acetaminophen-hydrocodone 325 mg-10 mg/1 5 mL oral solution 15 ml, PO, Q4H, PRN, 400 mL, for pain, S ubstitution Allowed, Maintenance, SOLN PO Active Kill Buck 06/2013 [facility] normal saline 0.9% IV 250 mL 2 50 mL, Rate: 250 ml/hr, Infuse over: 1 hr, Route: IV, Dosing Weight 100.455 kg, Total Volume: 250, Start date: 07/01/13 12:10:00, Duration: 1 doses or times, Stop date: 07/01/13 13:09:00 IV No Longer Active Kill Buck 07/01/2013 [facility] acetaminophen-hydrocodone 300 mg-10 mg/1 5 mL oral liquid 15 mL, Route: PO, Drug Form: SOLN, Dosin g Weight 100.455, kg, Q6H, PRN Pain, Start date: 07/01/13 9:02:00, Duration: 30 day, Stop date: 07/31/13 9:01:00 PO No Longer Active [place] Buck 04/2013 [facility] Zofran 4 mg, 2 mL, Route: IV, Drug form: INJ, Q6H, Dosing Weight 100.455, kg, PRN Nausea, Start date: 06/30/13 10:59:00, Stop date: 07/30/13 10:58:00 IV No Longer Active Clarence 06/30/2013 [facility] Dilaudid 0.2 mg, 0.1 mL, Route : IV, Drug form: INJ, Q6H, Dosing Weight 100.455, kg, PRN Pain, Start date: 06/30/13 6:23:00, Stop date: 07/30/13 6:22:00 IV No Longer Active [place] Buck 06/30/2013 [facility] Benadryl 25 mg, 0.5 mL, Route: IVP, Drug form: INJ, ONCE, Dosing Weight 100.455, kg, PRN Itching, Start date: 06/30/13 3:28:00 IVP No Longer Active [facility] 06/30 [facility] bisacodyl 10 mg, 1 supp, Route : KS, Drug form: SUPP, Daily, Dosing Weight 100.455, kg, PRN Constipation, Start date: 06/29/13 10:14:00, Duration: 30 day, Stop date: 07/29/13 10:13:00 KS No Longer Active Kill Buck 06/29/2013 [facility] ondansetron 8 mg, 4 mL, Route: IVP, Drug form: INJ, Q4H, Dosing Weight 100.455, kg, PRN Nausea & Vomiting, Start date: 06/29/13 8:00:00, Duration: 2 doses or times, Stop date: Limited # of times IVP No Longer Active Manasa 06/29/2013 [facility] Zofran 4 mg, Route: IVP, Drug form: INJ, ONCE, Dosing Weight 100.455, kg, Start date: 06/29/13 3:41:00, Stop date: 06/29/13 3:41:00 IVP No Longer Active [facility] 06/29 [facility] acetaminophen-codeine 300 mg-30 mg oral tablet 15 mL, Route: PO, Drug Form: LIQ, Dosing Weight 100.455, kg, Q4H, Start date: 06/27/13 7:11:00, Stop date: 07/27/13 8:00:00 PO No Longer Active Kill Buck 06/27/2013 [facility] Benadryl 25 mg, 0.5 mL, Route: IVP, Drug form: INJ, ONCE, Dosing Weight 100.455, kg, PRN Itching, Start date: 06/26/13 0:31:00 IVP No Longer Active [facility] 06/26 [facility] Dilaudid 0.3 mg, 0.15 mL, Rout e: IVP, Drug form: INJ, ONCE, Dosing Weight 100.455, kg, Start date: 06/25/13 10:22:00, Stop date: 06/25/13 10:22:00 IVP No Longer Active Kill Buck 06/25/2013 [facility] Fosrenol 1,000 mg, Route: PO, TID, Dosing Weight 100.455, kg, Start date: 06/24/13 17:00:00, Duration: 30 day, Stop date: 07/24/13 13:00:00 PO No Longer Active Christie 06/24/2013 [facility] Renvela 2.4 gm, 1 pkt, Route: PO, Drug form: PDR/REC, TID-Meals, Start date: 06/24/13 17:00:00, Duration: 30 day, Stop date: 07/24/13 12:00:00 PO No Longer Active Soriano 06/24/2013 [facility] Zofran 4 mg, 2 mL, Route: IVP, Drug form: INJ, ONCE, Dosing Weight 100.455, kg, Start date: 06/24/13 12:54:00, Stop date: 06/24/13 12:54:00 IVP No Longer Active Tima 06/24/2013 [facility] ondansetron 4 mg, 2 mL, Route: IVP, Drug form: INJ, Q12H, Dosing Weight 100.455, kg, PRN Nausea & Vomiting, Start date: 06/24/13 12:54:00, Duration: 30 day, Stop date: 07/24/13 12:53:00 IVP No Longer Active Cliff 06/24/2013 [facility] Ofirmev 1,000 mg, 100 mL, Rout e: IV, Drug form: INJ, Q6H, Dosing Weight 100.455, kg, Start date: 06/24/13 12:00:00, Duration: 1 day, Stop date: 06/25/13 6:00:00 IV No Longer Active Salas Ambriz 06/24/2013 [facility] amLODipine 5 mg, 1 tab, Route: PO, Drug form: TAB, P-Jt-Kr-Sa-Higgins, Dosing Weight 100.455, kg, Start date: 06/24/13 9:00:00, Duration: 30 day, Stop date: 07/23/13 9:00:00 PO No Longer Active Isamar 06/24/2013 [facility] Dilaudid 0.5 mg, 0.25 mL, Rout e: IV, Drug form: INJ, Q4H, Dosing Weight 100.455, kg, PRN Pain, Start date: 06/24/13 8:24:00, Stop date: 07/24/13 8:23:00 IV No Longer Active Manasa 06/24/2013 [facility] n[facility] NS 250 mL 250 mL, Rate: 250 ml /hr, Infuse over: 1 hr, Route: IV, Dosing Weight 100.455 kg, Total Volume: 250, Start date: 06/23/13 20:43:00, Duration: 30 day, Stop date: 07/23/13 20:42:00, DosingNeona chasidy Dosing IV No Longer Active Christie 06/24/2013 [facility] Dilaudid 0.2 mg, 0.1 mL, Route : IV, Drug form: INJ, ONCE, Dosing Weight 100.455, kg, Start date: 06/23/13 18:14:00, Stop date: 06/23/13 18:14:00 IV No Longer Active Canalichio 06/23/2013 [facility] n[facility] carvedilol 50 mg, 2 tab, Route : PO, Drug form: TAB, Daily, Dosing Weight 100.455, kg, Start date: 06/23/13 10:00:00, Duration: 30 day, Stop date: 07/23/13 9:00:00 PO No Longer Active Canalichio 06/23/2013 [facility] Epogen (ESRD) 5,000 unit, Rout e: IV, Q-M-W-F, Dosing Weight 100.455, kg, Start date: 06/23/13 9:00:00, Duration: 30 day, Stop date: 07/21/13 9:00:00 IV No Longer Active Clarence 06/23/2013 [facility] nter heparin 5,000 unit, 1 mL, Rout e: SUB-Q, Drug form: INJ, Q8H, Start date: 06/23/13 8:00:00, Duration: 30 day, Stop date: 07/23/13 0:00:00 SUB-Q No Longer Active Christie 2012 [facility] Lovenox 30 mg, Route: SUB-Q, D rug form: INJ, [id number], Dosing Weight 100.455, kg, For CrCl <30mL/min, Start date: 06/23/13 7:00:00, Duration: 30 day, Stop date: 07/22/13 7:00:00 SUB-Q No Longer Active Christie 06/23/2013 [facility] Sodium Chloride 0.45% IV 1,000 mL 1,000 mL, Rate: 50 ml/hr, Infuse over: 20 hr, Route: IV, Dosing Weight 100.455 kg, Total Volume: 1,000, Start date: 06/22/13 20:17:00, Duration: 30 day, Stop date: 07/22/13 20:16:00 IV No Longer Active Canalichio 06/23/2013 [facility] cefoxitin (SCIP) 2 gm, Route: IVPB, Drug form: INJ, Q6H, Dosing Weight 100.455, kg, Start date: 06/22/13 18:00:00, Duration: 1 doses or times, Stop date: 06/22/13 18:00:00 IVPB No Longer Active Soriano 06/22/2013 [facility] Renvela 2,400 mg, 3 tab, Route : PO, Drug form: TAB, TID- Meals, Dosing Weight 100.455, kg, Start date: 06/22/13 17:00:00, Duration: 30 day, Stop date: 07/22/13 12:00:00 PO No Longer Active Christie 06/22/2013 [facility] nter Protonix 40 mg, Route: IVP, Dr ug form: INJ, Before Dinner, Dosing Weight 100.455, kg, Start date: 06/22/13 16:30:00, Duration: 30 day, Stop date: 07/21/13 16:30:00 IVP No Longer Active Isamar 06/22/2013 [facility] n[facility] Dilaudid 0.2 mg, 0.1 mL, Route : IV, Drug form: INJ, Q2H, Dosing Weight 100.455, kg, PRN Breakthrough Pain, Start date: 06/22/13 16:14:00, Duration: 30 day, Stop date: 07/22/13 16:13:00 IV No Longer Active Canalichio 06/22/2013 [facility] heparin 5,000 unit, 1 mL, Rout e: SUB-Q, Drug form: INJ, Q8H, Start date: 06/22/13 16:00:00, Duration: 30 day, Stop date: 07/22/13 8:00:00 SUB-Q No Longer Active Soriano 06/22/2013 [facility] ondansetron 4 mg, 2 mL, Route: IVP, Drug form: INJ, ONCE, Dosing Weight 100.455, kg, PRN Nausea & Vomiting, Start date: 06/22/13 13:15:00 IVP No Longer Active [place] 06/22/2013 [facility] hydromorphone 0.5 mg, 0.25 mL, Route: IVP, Drug form: INJ, Q5Min, Dosing Weight 100.455, kg, PRN Pain Score 7-10, Start date: 06/22/13 13:15:00, Duration: 5 doses or times, Stop date: 06/24/13 0:00:00 IVP No Longer Active [place] 06/22/2013 [facility] labetalol 5 mg, 1 mL, Route: I [employer], Drug form: INJ, Q5Min, Dosing Weight 100.455, kg, PRN Elevated BP, Start date: 06/22/13 13:15:00, Duration: 5 doses or times, Stop date: 06/24/13 0:00:00 IVP No Longer Active [place] 06/22/2013 [facility] flumazenil 0.2 mg, 2 mL, Route : IVP, Drug form: INJ, PRN, Dosing Weight 100.455, kg, PRN Benzodiazepine Reversal, Initial dose, Start date: 06/22/13 13:15:00, Duration: 30 day, Stop date: 07/22/13 13:14:00 IVP No Longer Active [place] 06/22 [facility] naloxone 0.04 mg, 0.1 mL, Rout e: IVP, Drug form: INJ, Q2MIN, Dosing Weight 100.455, kg, PRN Narcotic Reversal, Start date: 06/22/13 13:15:00, Duration: 8 doses or times, Stop date: 06/24/13 0:00:00 IVP No Longer Active [place] 06/22/2013 [facility] insulin aspart 2 unit, 0.02 mL , Route: SUB-Q, Drug form: SOLN, TID-Before Meals, Dosing Weight 100.455, kg, PRN Blood Glucose Results, Start date: 06/22/13 12:46:00, Duration: 30 day, Stop date: 07/22/13 12:45:00 SUB-Q No Longer Active Isamar 06/22 [facility] Saline Flush 0.9% 5 ml, Route: IVP, Drug Form: INJ, Dosing Weight 100.455, kg, PRN, PRN Line Flush, Start date: 06/22/13 12:46:00, Duration: 30 day, Stop date: 07/22/13 12:45:00 IVP No Longer Active [facility] 06/22/2013 [facility] Sodium Chloride 0.45% IV 1,000 mL 1,000 mL, Rate: 85 ml/hr, Infuse over: 11.8 hr, Route: IV, Dosing Weight 100.455 kg, Total Volume: 1,000, Start date: 06/22/13 12:46:00, Duration: 30 day, Stop date: 07/22/13 12:45:00 IV No Longer Active Clarence 06/22/2013 [facility] ondansetron 4 mg, 2 mL, Route: IVP, Drug form: INJ, Q12H, Dosing Weight 100.455, kg, PRN Nausea & Vomiting, Start date: 06/22/13 12:46:00, Duration: 30 day, Stop date: 07/22/13 12:45:00 IVP No Longer Active Alfred 06/22/2013 [facility] morphine Sulfate 2 mg, 1 mL, R oute: IVP, Drug form: INJ, Q2H, Dosing Weight 100.455, kg, PRN Pain Score 1-5, Start date: 06/22/13 12:46:00, Duration: 30 day, Stop date: 07/22/13 12:45:00 IVP No Longer Active Canalichio 06/22/2013 [facility] acetaminophen-hydrocodone 300 mg-10 mg/1 5 mL oral liquid 15 mL, Route: PO, Drug Form: SOLN, Dosin g Weight 100.455, kg, Q4H, PRN Pain Score 1-3, Start date: 06/22/13 12:46:00, Duration: 30 day, Stop date: 07/22/13 12:45:00 PO No Longer Active Manasa 06/22/2013 [facility] bupivacaine liposome 20 mL, [place]: InFILtration(local), Drug Form: INJ, ONCE, Start date: 06/22/13 9:05:00, Stop date: 06/22/13 9:05:00 InFILtration(local) No Longer Active Isamar 06/22/2013 [facility] cefoxitin 2 gm, Route: IVPB, P RE OP, Dosing Weight 100.455, kg, Start date: 06/22/13 8:59:00 IVPB No Longer Active [place]amar 06/22/2013 [facility] isometheptene mucate Substitut ion Allowed No Longer Active 06/22/2013 [facility] tramadol Substitution Allowed No Longer Active 06/22/2013 [facility] topiramate Substitution Allowed No Longer Active 06/22/2013 [facility] cyclobenzaprine Substitution A llowed No Longer Active 06/22/2013 [facility] pantoprazole 40 mg daily PO, S ubstitution Allowed Active 06/22/2013 [facility] ibuprofen 400 mg oral tablet 2 tab, Route: PO, Drug form: TAB, ONCE, Dosing Weight 100, kg, Priority: STAT, Start date: 01/12/13 14:18:00, Stop date: 01/12/13 14:18:00 PO No Longer Active Marifer 01/12/2013 [facility] ondansetron 4 mg, Route: IVP, ONCE, Dosing Weight 100, kg, Priority: STAT, Start date: 01/12/13 11:58:00, Stop date: 01/12/13 11:58:00 IVP No Longer Active Marifer 01/12/2013 [facility] aspirin 325 mg tablet 325 mg, Route: PO, Drug form: TAB, ONCE, Dosing Weight 100, kg, Priority: STAT, Start date: 01/12/13 11:58:00, Stop date: 01/12/13 11:58:00 PO No Longer Active Marifer 01/12/2013 [facility] ondansetron 4 mg, 2 mL, Route: IVP, Drug form: INJ, ONCE, Dosing Weight 47.727, kg, Priority: STAT, Start date: 01/06/13 14:34:00, Stop date: 01/06/13 14:34:00 IVP No Longer Active Ovi 01/06/2013 [facility] hydromorphone 1 mg, 1 mL, Rout e: IVP, Drug form: SOLN, ONCE, Dosing Weight 47.727, kg, PRN as needed for pain, Priority: STAT, Start date: 01/06/13 14:33:00 IVP No Longer Active Ovi 01/06/2013 [facility] baclofen 5 mg, 0.5 tab, Route: PO, Drug form: TAB, ONCE, Dosing Weight 106.6, kg, Start date: 12/28/12 15:06:00, Stop date: 12/28/12 15:06:00 PO No Longer Active Mena 12/28/2012 [facility] MiraLax 17 gm, 1 pkt, Route: P O, Drug form: PWDR, ONCE, Dosing Weight 106.6, kg, Start date: 12/28/12 15:05:00, Duration: 1 doses or times, Stop date: 12/28/12 15:05:00 PO No Longer Active Rajesh 12/28/2012 [facility] ondansetron 4 mg oral tablet 4 mg, 1 tab, PO, Q8H, PRN, 20 tab, Nausea, Substitution Allowed, TAB PO Active Ramon quinn 12/28/2012 [facility] Zofran 4 mg, 1 tab, Route: PO, Drug form: TAB, Q8H, Dosing Weight 106.6, kg, PRN Nausea, Start date: 12/28/12 11:04:00, Duration: 30 day, Stop date: 01/27/13 11:03:00 PO No Longer Active Eryn 12/28/2012 [facility] Epogen (ESRD) 10,000 unit, 1 m L, Route: SUB-Q, Drug form: INJ, Q-M-W-F, Dosing Weight 102.727, kg, Start date: 12/28/12 9:00:00, Duration: 30 day, Stop date: 01/25/13 9:00:00 SUB-Q No Longer Active Rajesh 12/28/2012 [facility] Protonix 40 mg, 1 tab, Route: PO, Drug form: ECTAB, Daily, Start date: 12/28/12 9:00:00, Duration: 30 day, Stop date: 01/26/13 9:00:00 PO No Longer Active Onochmartha 12/28/2012 [facility] Sodium Chloride 0.9% IV IV, 30 ml/hr, ONCALL, Start date: 12/27/12 15:00:00, Duration: 1, 250 ml IV No Longer Active Rajesh 12/27/2012 [facility] PhosLo Gelcap 2,001 mg, 3 cap, Route: PO, Drug form: CAP, TID, Dosing Weight 106.6, kg, Start date: 12/27/12 13:00:00, Duration: 30 day, Stop date: 01/26/13 9:00:00 PO No Longer Active Rajesh 12/27/2012 [facility] amLODipine 5 mg, 1 tab, Route: PO, Drug form: TAB, G-Jl-Zw-Sa-Higgins, Dosing Weight 102.727, kg, Start date: 12/27/12 9:00:00, Duration: 30 day, Stop date: 01/24/13 9:00:00 PO No Longer Active Eryn 12/27/2012 [facility] calcium carbonate 1,000 mg, 2 tab, Route: CHEW, Drug form: TAB, TID, Dosing Weight 102.727, kg, Start date: 12/26/12 17:00:00, Duration: 30 day, Stop date: 01/25/13 13:00:00 CHEW No Longer Active Rajesh 12/26/2012 [facility] albuterol 0.083% inhalation solution 5 mg, Route: NEB, ONCE, Dosing Weight 102.727, kg, Start date: 12/26/12 14:38:00, Stop date: 12/26/12 14:38:00 NEB No Longer Active Mena 12/26/2012 [facility] insulin aspart 10 unit, Route: IVP, ONCE, Dosing Weight 102.727, kg, Start date: 12/26/12 14:36:00, Stop date: 12/26/12 14:36:00 IVP No Longer Active Rajesh 12/26 [facility] d50 syringe 25 gm, 50 mL, Rout e: IVP, Drug Form: INJ, Dosing Weight 102.727, kg, ONCE, Start date: 12/26/12 14:35:00, Stop date: 12/26/12 14:35:00 IVP No Longer Active Rajesh 12/26/2012 [facility] Kayexalate 30 gm, Route: PO, D rug form: SUSP, ONCE, Dosing Weight 102.727, kg, Start date: 12/26/12 14:33:00, Stop date: 12/26/12 14:33:00 PO No Longer Active Rajesh 12/26/2012 [facility] sevelamer 2.4 gm, 3 tab, Route : PO, Drug form: TAB, TID, Dosing Weight 102.727, kg, Start date: 12/26/12 13:00:00, Duration: 30 day, Stop date: 01/25/13 9:00:00 PO No Longer Active Rajesh 12/26/2012 [facility] albuterol 0.083% inhalation solution 4.98 mg, 6 mL, Route: NEB, Drug form: SOLN, ONCE, Dosing Weight 102.727, kg, Start date: 12/26/12 9:49:00, Stop date: 12/26/12 9:49:00 NEB No Longer Active Rajesh 12/26/2012 [facility] Kayexalate 30 gm, Route: PO, D rug form: SUSP, ONCE, Dosing Weight 102.727, kg, Start date: 12/26/12 9:46:00, Stop date: 12/26/12 9:46:00 PO No Longer Active Rajesh 12/26/2012 [facility] docusate 100 mg, 1 cap, Route: PO, Drug form: CAP, Q12H, Dosing Weight 102.727, kg, Start date: 12/26/12 9:00:00, Duration: 30 day, Stop date: 01/24/13 21:00:00 PO No Longer Active Esdras 12/26/2012 [facility] Saline Flush 0.9% 5 ml, Route: IVP, Drug Form: INJ, Dosing Weight 102.727, kg, Q12H, Start date: 12/26/12 9:00:00, Duration: 30 day, Stop date: 01/24/13 21:00:00 IVP No Longer Active Esdras 12/26/2012 [facility] pantoprazole 40 mg, Route: IVP , Drug form: INJ, Daily, Dosing Weight 102.727, kg, Priority: Routine, Start date: 12/26/12 9:00:00, Duration: 30 day, Stop date: 01/24/13 9:00:00 IVP No Longer Active 12/26/2012 [facility] Dextrose 50% Syringe 12.5 gm, 25 mL, Route: IVP, Drug Form: INJ, Dosing Weight 102.727, kg, PRN, PRN Blood Glucose Results, Start date: 12/26/12 7:13:00, Duration: 30 day, Stop date: 01/25/13 8:12:00 IVP No Longer Active 01/2013 [facility] glucagon 1 mg, Route: IM, Drug form: PDR/INJ, PRN, Dosing Weight 102.727, kg, PRN Blood Glucose Results, Start date: 12/26/12 7:13:00, Duration: 30 day, Stop date: 01/25/13 8:12:00 IM No Longer Active 12/26/2012 [facility] insulin aspart 4 unit, 0.04 mL , Route: SUB-Q, Drug form: SOLN, TID-Before Meals, Dosing Weight 102.727, kg, PRN Blood Glucose Results, Start date: 12/26/12 7:13:00, Duration: 30 day, Stop date: 01/25/13 7:12:00 SUB-Q No Longer Active 01/2013 [facility] DuoNeb inhalation solution 3 m l, Route: INHALATION, Drug Form: SOLN, Dosing Weight 102.727, kg, PRN, PRN Respiratory Protocol, Start date: 12/26/12 6:21:00, Duration: 30 day, Stop date: 01/25/13 7:20:00 INHALATION No Longer Active 01/2013 [facility] chlorhexidine topical 4% soap 1 appl, Route: BATHE, Q24H, Start date: 12/26/12 4:00:00, Duration: 30 day, Stop date: 01/24/13 4:00:00 BATHE No Longer Active 12/26/2012 [facility] glucagon 1 mg, Route: IM, Drug form: PDR/INJ, PRN, Dosing Weight 102.727, kg, PRN Blood Glucose Results, Start date: 12/26/12 3:55:00, Duration: 30 day, Stop date: 01/25/13 4:54:00 IM No [facility]er Active [facility]2012 [facility] Dextrose 50% Syringe 25 gm, 50 mL, Route: IVP, Drug Form: INJ, Dosing Weight 102.727, kg, PRN, PRN Blood Glucose Results, Start date: 12/26/12 3:55:00, Duration: 30 day, Stop date: 01/25/13 4:54:00 [facility] insulin aspart 4 unit, 0.04 mL , Route: SUB-Q, Drug form: SOLN, Bedtime, Dosing Weight 102.727, kg, PRN Blood Glucose Results, Start date: 12/26/12 3:55:00, Duration: 30 day, Stop date: 01/25/13 3:54:00 SUB-Q No Longer Active [facility]2013 [facility] morphine Sulfate 4 mg, 2 mL, R oute: IVP, Drug form: INJ, Q3H, Dosing Weight 105.001, kg, PRN Pain Score 7-10, Start date: 12/26/12 3:52:00, Duration: 30 day, Stop date: 01/25/13 3:51:00 IVP No [facility] Active [facility] ondansetron 4 mg, 2 mL, Route: IVP, Drug form: INJ, Q6H, Dosing Weight 102.727, kg, PRN Nausea & Vomiting, Start date: 12/26/12 3:52:00, Duration: 30 day, Stop date: 01/25/13 3:51:00 IVP No [facility]2012 [facility] ondansetron 4 mg, 2 mL, Route: IVP, Drug form: INJ, Q4H, Dosing Weight 102.727, kg, PRN Nausea & Vomiting, Start date: 12/26/12 3:51:00, Duration: 30 day, Stop date: 01/25/13 3:50:00 IVP No [facility] albuterol-ipratropium 2.5-0.5 mg inhalation solution 3 ml, Route: NEB, Drug Form: SOLN, Dosing Weight 102.727, kg, PRN, PRN Respiratory Protocol, Start date: 12/26/12 3:51:00, Duration: 30 day, Stop date: 01/25/13 4:50:00 NEB No Longer Active [facility] 12/26/2012 [facility] Saline Flush 0.9% 5 ml, Route: IVP, Drug Form: INJ, Dosing Weight 102.727, kg, PRN, PRN Line Flush, Start date: 12/26/12 3:51:00, Duration: 30 day, Stop date: 01/25/13 4:50:00 IVP No Longer Active [facility] 12/26/2012 [facility] morphine Sulfate 2 mg, 1 mL, R oute: IV, Drug form: INJ, Q2H, Dosing Weight 102.727, kg, PRN as needed for pain, Start date: 12/26/12 3:51:00, Duration: 30 day, Stop date: 01/25/13 3:50:00 IV No Longer Active [facility] 12/26/2012 [facility] acetaminophen 650 mg, 2 tab, R oute: PO, Drug form: TAB, Q6H, Dosing Weight 102.727, kg, PRN Pain, Start date: 12/26/12 3:51:00, Duration: 30 day, Stop date: 01/25/13 3:50:00 PO No Longer Active [facility] 12/26/2012 [facility] albuterol 0.083% inhalation solution 4.98 mg, Route: NEB, Drug form: SOLN, ONCE, Dosing Weight 102.727, kg, Start date: 12/26/12 1:12:00, Stop date: 12/26/12 1:12:00 NEB No Longer Active Rajesh 12/26/2012 [facility] albuterol 0.083% inhalation solution 20 mg, Route: NEB, Continuous, Dosing Weight 102.727, kg, Start date: 12/26/12 1:00:00 NEB No Longer Active [facility] 01/2013 [facility] calcium gluconate 1,000 mg, [place]: IVP, ONCE, Dosing Weight 102.727, kg, Priority: STAT, Start date: 12/26/12 0:33:00, Stop date: 12/26/12 0:33:00 IVP No Longer Active [facility] 12/26/2012 [facility] sodium bicarbonate 50 mEq, Rou te: IVP, ONCE, Dosing Weight 102.727, kg, Priority: STAT, Start date: 12/26/12 0:33:00, Stop date: 12/26/12 0:33:00 IVP No Longer Active [facility] 12/26/2012 [facility] sodium polystyrene sulfonate 1 5 gm, Route: PO, Drug form: SUSP, ONCE, Dosing Weight 102.727, kg, Priority: STAT, Start date: 12/26/12 0:33:00, Stop date: 12/26/12 0:33:00 PO No Longer Active [facility] 12/26/2012 [facility] Insulin regular 10 unit, Route : IVP, ONCE, Dosing Weight 102.727, kg, Priority: STAT, Start date: 12/26/12 0:33:00, Stop date: 12/26/12 0:33:00 IVP No Longer Active [facility] 12/26/2012 [facility] Dextrose 50% Syringe 25 gm, [place]: IVP, Dosing Weight 102.727, kg, ONCE, STAT, Start date: 12/26/12 0:33:00, Stop date: 12/26/12 0:33:00 IVP No Longer Active [facility] 12/26/2012 [facility] Saline Flush 0.9% 5 mL, Route: IVP, Drug Form: INJ, Dosing Weight 102.727, kg, PRN, PRN Line Flush, Start date: 12/26/12 0:33:00, Duration: 30 day, Stop date: 01/25/13 1:32:00 IVP No Longer Active [facility] 12/26/2012 [facility] Ativan 1 mg, Route: IVP, ONCE, Dosing Weight 102.727, kg, Priority: STAT, Start date: 12/25/12 23:59:00, Stop date: 12/25/12 23:59:00 IVP No Longer Active [facility] 01/2013 [facility] Saline Flush 0.9% 5 mL, Route: IVP, Drug Form: INJ, Dosing Weight 102.727, kg, Q8H, PRN Line Flush, Start date: 12/25/12 23:59:00, Duration: 30 day, Stop date: 01/24/13 23:58:00, Administer at least once every 8 hoursAdminister at least once every 8 hours IVP No Longer Active [facility] 12/26/2012 [facility] aspirin 324 mg, Route: PO, ONC E, Dosing Weight 102.727, kg, Priority: STAT, Start date: 12/25/12 23:59:00, Stop date: 12/25/12 23:59:00 PO No Longer Active Leonidas 01/2013 [facility] morphine Sulfate 4 mg, 2 mL, R oute: IVP, Drug form: INJ, ONCE, Dosing Weight 105, kg, Priority: STAT, Start date: 12/05/12 8:10:00, Stop date: 12/05/12 8:10:00 IVP No Longer Active Faith 12/05/2012 [facility] [place] 5/325 oral tablet 1-2 ta b, PO, Q6H, PRN, 30 tab, Pain, Substitution Allowed, Maintenance PO Active [facility] 12/02/2012 [facility] Lyrica 75 mg oral capsule 75 m g, 1 cap, PO, TID, 90 cap, Substitution Allowed, CAP PO Active [facility] 12/02/2012 [facility] Lovenox 30 mg, 0.3 mL, Route: SUB-Q, Drug form: INJ, Q24H, Dosing Weight 105.909, kg, Priority: Within 8 hours, Start date: 12/01/12 22:00:00, Duration: 30 day, Stop date: 12/30/12 22:00:00 SUB-Q No Longer Active James 12/02/2012 [facility] lidocaine 1% 10 mL, Route: INT RADERM, Drug Form: INJ, Dosing Weight 105.909, kg, ONCE, Start date: 12/01/12 15:50:00, Stop date: 12/01/12 15:50:00 INTRADERM No Longer Active [facility] 12/01/2012 [facility] Kenalog-40 80 mg, 2 mL, Route: intra-ARTICULAR, Drug form: INJ, ONCE, Dosing Weight 105.909, kg, Start date: 12/01/12 15:50:00, Stop date: 12/01/12 15:50:00 intra-ARTICULAR No Longer Active [facility] 12/01/2012 [facility] Dilaudid 1 mg, 1 mL, Route: IV , Drug form: SOLN, Q3H, Dosing Weight 105.909, kg, PRN Pain, Start date: 12/01/12 14:38:00, Duration: 30 day, Stop date: 12/31/12 14:37:00 IV No Longer Active [facility] 12/01/2012 [facility] D5W 1/2NS + KCL 20mEq/L 1000ml (Premix) 1000 mL 1,000 mL, Rate: 100 ml/hr, Infuse over: 10 hr, Route: IV, Dosing Weight 105.909 kg, Total Volume: 1,000, Start date: 12/01/12 10:11:00, Duration: 30 day, Stop date: 12/31/12 10:10:00 IV No Longer Active [employer] 12/01/2012 [facility] NS + KCL 20mEq/L 1000ml (Premix) 1000 mL 1,000 mL, Rate: 100 ml/hr, Infuse over: 10 hr, Route: IV, Dosing Weight 105.909 kg, Total Volume: 1,000, Start date: 12/01/12 10:11:00, Duration: 30 day, Stop date: 12/31/12 10:10:00 IV No Longer Active [employer] 12/01/2012 [facility] 1/2 NS 1,000 mL 1,000 mL, Rate : 100 ml/hr, Infuse over: 10 hr, Route: IV, kg, Total Volume: 1,000, Start date: 12/01/12 10:11:00, Duration: 30 day, Stop date: 12/31/12 10:10:00 IV No Longer Active [facility] 12/01/2012 [facility] cefazolin 2 gm, Route: IVPB, O NCE, Dosing Weight 105.909, kg, Start date: 12/01/12 9:53:00, Duration: 1 doses or times, Stop date: 12/01/12 9:53:00 IVPB No Longer Active [employer] 12/01/2012 [facility] nitroglycerin 0.4 mg sublingual tablet 0.4 mg, 1 tab, Route: SL, Drug form: TAB, Q5Min, PRN Chest Pain, Start date: 11/30/12 19:55:00, Duration: 30 day, Stop date: 12/30/12 19:54:00 SL No Longer Active [facility] 12/01/2012 [facility] atropine 0.5 mg, 5 mL, Route: IVP, Drug form: INJ, PRN, PRN Bradycardia, Start date: 11/30/12 19:55:00, Duration: 30 day, Stop date: 12/30/12 19:54:00 IVP No Longer Active [place] 12/01/2012 [facility] Epogen (ESRD) 10,000 unit, 1 m L, Route: SUB-Q, Drug form: INJ, Q-M-W-F, Dosing Weight 105.909, kg, Start date: 11/30/12 17:00:00, Duration: 30 day, Stop date: 12/28/12 17:00:00 SUB-Q No Longer Active [facility] 11/30/2012 [facility] Novolog 70/30 45 unit, 0.45 mL , Route: SUB-Q, Drug form: INJ, Before Dinner, Dosing Weight 102.727, kg, Start date: 11/30/12 16:30:00, Duration: 30 day, Stop date: 12/29/12 16:30:00 SUB-Q No Longer Active [facility] 11/30/2012 [facility] NovoLog Mix 70/30 FlexPen 26 u nit, 0.26 mL, Route: SUB- Q, Drug form: INJ, Before Lunch, Dosing Weight 102.727, kg, Start date: 11/30/12 11:30:00, Duration: 30 day, Stop date: 12/29/12 11:30:00 SUB-Q No Longer Active [facility] 11/30/2012 [facility] morphine Sulfate 4 mg, 2 mL, R oute: IVP, Drug form: INJ, Q3H, Dosing Weight 105.909, kg, PRN Severe Pain, Start date: 11/30/12 10:35:00, Duration: 30 day, Stop date: 12/30/12 10:34:00 IVP No Longer Active [place] 11/30/2012 [facility] Lyrica 75 mg, 1 cap, Route: PO , Drug form: CAP, BID, Dosing Weight 102.727, kg, Start date: 11/30/12 9:00:00, Duration: 30 day, Stop date: 12/29/12 17:00:00 PO No Longer Active [place] 11/30/2012 [facility] ropinirole 0.25 mg, 1 tab, Rou te: PO, Drug form: TAB, TID, Dosing Weight 102.727, kg, Start date: 11/30/12 9:00:00, Duration: 30 day, Stop date: 12/29/12 17:00:00 PO No Longer Active [place] 11/30/2012 [facility] oxybutynin 5 mg, 1 tab, Route: PO, Drug form: TAB, TID, Dosing Weight 102.727, kg, Start date: 11/30/12 9:00:00, Duration: 30 day, Stop date: 12/29/12 17:00:00 PO No Longer Active [place] 11/30/2012 [facility] insulin detemir 16 unit, 0.16 mL, Route: SUB-Q, Drug form: INJ, QAM, Dosing Weight 102.727, kg, Start date: 11/30/12 9:00:00, Duration: 30 day, Stop date: 12/29/12 9:00:00 SUB-Q No Longer Active [place] 11/30/2012 [facility] gabapentin 100 mg oral capsule 100 mg, 1 cap, Route: PO, Drug form: CAP, Daily, Dosing Weight 102.727, kg, Start date: 11/30/12 9:00:00, Duration: 30 day, Stop date: 12/29/12 9:00:00 PO No Longer Active [place] 11/30/2012 [facility] calcium carbonate 1,000 mg, 2 tab, Route: CHEW, Drug form: CHEWTAB, TID, Dosing Weight 102.727, kg, Start date: 11/30/12 9:00:00, Duration: 30 day, Stop date: 12/29/12 17:00:00 CHEW No Longer Active [place] 11/30/2012 [facility] docusate 100 mg, 1 cap, Route: PO, Drug form: CAP, BID, Dosing Weight 102.727, kg, Start date: 11/30/12 9:00:00, Duration: 30 day, Stop date: 12/29/12 17:00:00 PO No Longer Active [place] 11/30/2012 [facility] Renvela 2,400 mg, 3 tab, Route : PO, Drug form: TAB, TID- Meals, Dosing Weight 102.727, kg, Start date: 11/30/12 8:00:00, Duration: 30 day, Stop date: 12/29/12 17:00:00 PO No Longer Active [place] 11/30/2012 [facility] Novolog 70/30 40 unit, 0.4 mL, Route: SUB-Q, Drug form: INJ, Before Breakfast, Dosing Weight 102.727, kg, Start date: 11/30/12 7:30:00, Duration: 30 day, Stop date: 12/29/12 7:30:00 SUB-Q No Longer Active [facility] 11/30/2012 [facility] simvastatin 20 mg, 1 tab, Rout e: PO, Drug form: TAB, Bedtime, Dosing Weight 102.727, kg, Start date: 11/29/12 21:00:00, Duration: 30 day, Stop date: 12/28/12 21:00:00 PO No Longer Active [facility] 11/30/2012 [facility] Levemir 70 unit, 0.7 mL, Route : SUB-Q, Drug form: INJ, Bedtime, Dosing Weight 102.727, kg, Start date: 11/29/12 21:00:00, Duration: 30 day, Stop date: 12/28/12 21:00:00 SUB-Q No Longer Active [facility] 11/30/2012 [facility] heparin 5,000 unit, 1 mL, Rout e: SUB-Q, Drug form: INJ, Q12H, Dosing Weight 102.727, kg, Start date: 11/29/12 21:00:00, Duration: 30 day, Stop date: 12/29/12 9:00:00 SUB-Q No Longer Active James 11/30/2012 [facility] amLODipine 5 mg, 1 tab, Route: PO, Drug form: TAB, I-Pq-Xv-Sa-Higgins, Dosing Weight 102.727, kg, Start date: 11/29/12 18:29:00, Duration: 30 day, Stop date: 12/29/12 9:00:00 PO No Longer Active [facility] 11/30/2012 [facility] furosemide 40 mg oral tablet 4 0 mg, 1 tab, Route: PO, Drug form: TAB, C-Sf-Vz-Sa-Higgins, Dosing Weight 102.727, kg, Start date: 11/29/12 18:29:00, Duration: 30 day, Stop date: 12/29/12 9:00:00 PO No Longer Active Rajesh 11/30/2012 [facility] carvedilol 50 mg, 4 tab, Route : PO, Drug form: TAB, P-Hk-Oi-Sa-Higgins, Dosing Weight 102.727, kg, Start date: 11/29/12 18:29:00, Duration: 30 day, Stop date: 12/29/12 17:00:00 PO No Longer Active [place] 11/30/2012 [facility] temazepam 15 mg, 1 cap, Route: PO, Drug form: CAP, Bedtime, Dosing Weight 102.727, kg, PRN Insomnia, Start date: 11/29/12 18:28:00, Duration: 30 day, Stop date: 12/29/12 18:27:00 PO No Longer Active [place] 11/30/2012 [facility] ondansetron 4 mg, 2 mL, Route: IVP, Drug form: INJ, Q6H, Dosing Weight 102.727, kg, PRN Nausea & Vomiting, Start date: 11/29/12 18:28:00, Duration: 30 day, Stop date: 12/29/12 18:27:00 IVP No Longer Active [place] 11/30/2012 [facility] acetaminophen-hydrocodone 325 mg-5 mg oral tablet 2 tab, Route: PO, Drug Form: TAB, Dosing Weight 102.727, kg, Q4H, PRN Pain Score 4-6, Start date: 11/29/12 18:28:00, Duration: 30 day, Stop date: 12/29/12 18:27:00 PO No Longer Active [place] [address] [place] [address] morphine Sulfate 2 mg, 1 mL, R oute: IVP, Drug form: INJ, Q3H, Dosing Weight 102.727, kg, PRN Pain Score 4-6, Start date: 11/29/12 18:28:00, Duration: 30 day, Stop date: 12/29/12 18:27:00 IVP No Longer Active [place] 11/30/2012 [facility] acetaminophen 650 mg, 2 tab, R oute: PO, Drug form: TAB, Q4H, Dosing Weight 102.727, kg, PRN Pain/Fever, Start date: 11/29/12 18:28:00, Duration: 30 day, Stop date: 12/29/12 18:27:00 PO No Longer Active [place] 11/30/2012 [facility] Tums Ultra 1000 mg oral tablet, chewable 1,000 mg, 1 tab, CHEW, TID, Substitution Allowed CHEW Active [facility] 11/29/2012 [facility] Vitamin D 50,000 intl units oral capsule 50,000 IntlUnit, 1 cap, PO, QSat, Substitution Allowed PO Active 11/29/2012 [facility] acetaminophen-hydrocodone 325 mg-5 mg oral tablet 1 tab, PO, Q6H, PRN, as needed for pain, Substitution Allowed, Maintenance PO No Longer Active 11/29/2012 [facility] promethazine 12.5 mg oral tablet 12.5 mg, 1 tab, PO, Q6H, PRN, as needed for nausea/vomiting, Substitution Allowed PO Active 11/29/2012 [facility] gabapentin 100 mg oral capsule 100 mg, 1 cap, PO, Daily, Substitution Allowed PO No Longer Active [facility] 11/29/2012 [facility] tramadol 25 mg, 0.5 tab, Route : PO, Drug form: TAB, ONCE, Dosing Weight 102.727, kg, Priority: STAT, Start date: 11/29/12 14:52:00, Stop date: 11/29/12 14:52:00 PO No Longer Active [facility] 11/29/2012 [facility] Tylenol 1,000 mg, Route: PO, O NCE, Dosing Weight 102.727, kg, Priority: STAT, Start date: 11/29/12 12:47:00, Stop date: 11/29/12 12:47:00 PO No Longer Active [facility] 11/29/2012 [facility] Kayexalate 30 gm, Route: PO, D rug form: SUSP, ONCE, Dosing Weight 102.727, kg, Priority: STAT, Start date: 11/29/12 11:58:00, Stop date: 11/29/12 11:58:00 PO No Longer Active [facility] 11/29/2012 [facility] sodium bicarbonate 50 mEq, 50 mL, Route: INJ, Drug form: INJ, ONCE, Dosing Weight 102.727, kg, Priority: STAT, Start date: 11/29/12 11:57:00, Stop date: 11/29/12 11:57:00 INJ No Longer Active [facility] 11/29/2012 [facility] DuoNeb inhalation solution 3 m L, Route: NEB, Drug Form: SOLN, Dosing Weight 102.727, kg, ONCE, Start date: 11/29/12 11:35:00, Stop date: 11/29/12 11:35:00 NEB No Longer Active [facility] 11/29/2012 [facility] Valium 5 mg, 1 mL, Route: IVP, Drug form: INJ, ONCE, Dosing Weight 102.727, kg, Priority: STAT, Start date: 11/29/12 11:07:00, Stop date: 11/29/12 11:07:00 IVP No Longer Active [facility] 11/29/2012 [facility] Saline Flush 0.9% 5 ml, Route: IVP, Drug Form: INJ, Dosing Weight 102.727, kg, PRN, PRN Line Flush, Start date: 11/29/12 11:06:00, Duration: 30 day, Stop date: 12/29/12 11:05:00 IVP No Longer Active [facility] 11/29/2012 [facility] ciprofloxacin 500 mg oral tablet 500 mg, 1 tab, PO, Q24H, 5 tab, Substitution Allowed, TAB PO Active [facility] 09/10/2012 [facility] [place] 5/325 oral tablet 1-2 ta b, PO, Q6H, PRN, 30 tab, Pain, Substitution Allowed, Maintenance PO Active [facility] 09/10/2012 [facility] methocarbamol 750 mg oral tablet 750 mg, 1 tab, PO, TID, 30 tab, Substitution Allowed, TAB PO Active [facility] 09/10/2012 [facility] Coreg 25 mg, 2 tab, Route: PO, Drug form: TAB, Q12H, Dosing Weight 100, kg, Start date: 09/09/12 21:00:00, Duration: 30 day, Stop date: 10/09/12 9:00:00 PO No Longer Active Rajesh 09/10/2012 [facility] lidocaine 1% 5 mL, Route: INTR ADERM, Drug Form: INJ, Dosing Weight 100, kg, ONCE, STAT, Start date: 09/09/12 15:55:00, Stop date: 09/09/12 15:55:00 INTRADERM Active [place] 09/09/2012 [facility] Kenalog-40 40 mg, 1 mL, Route: INTRADERM, Drug form: INJ, ONCE, Dosing Weight 100, kg, Priority: STAT, Start date: 09/09/12 15:54:00, Stop date: 09/09/12 15:54:00 INTRADERM Active [place] [facility] 09/09/2012 [facility] Dilaudid 1 mg, 1 mL, Route: IV , Drug form: SOLN, Q3H, Dosing Weight 100, kg, PRN Pain Score 4-6, Start date: 09/09/12 10:59:00, Duration: 30 day, Stop date: 10/09/12 10:58:00 IV No Longer Active [place] 09/09/2012 [facility] Levemir 16 unit, 0.16 mL, Rout e: SUB-Q, Drug form: INJ, QAM, Dosing Weight 100, kg, Start date: 09/09/12 9:00:00, Duration: 30 day, Stop date: 10/08/12 9:00:00 SUB-Q No Longer Active [place] 09/09/2012 [facility] Novolog 70/30 40 unit, 0.4 mL, Route: SUB-Q, Drug form: INJ, Breakfast, Dosing Weight 100, kg, Start date: 09/09/12 8:00:00, Duration: 30 day, Stop date: 10/08/12 8:00:00 SUB-Q No Longer Active [place] 09/09/2012 [facility] Rocephin 1 gm, Route: IV, Q24H , Dosing Weight 100, kg, Start date: 09/09/12 0:00:00, Duration: 30 day, Stop date: 10/08/12 0:00:00 IV No Longer Active [place] 012 [facility] Levemir 70 unit, 0.7 mL, Route : SUB-Q, Drug form: INJ, Bedtime, Dosing Weight 100, kg, Start date: 09/08/12 21:00:00, Duration: 30 day, Stop date: 10/07/12 21:00:00 SUB-Q No Longer Active [place] 09/09/2012 [facility] carvedilol 25 mg, 2 tab, Route : PO, Drug form: TAB, Bedtime, Dosing Weight 100, kg, Start date: 09/08/12 21:00:00, Duration: 30 day, Stop date: 10/07/12 21:00:00 PO No Longer Active [place] 09/09/2012 [facility] Novolog 70/30 45 unit, 0.45 mL , Route: SUB-Q, Drug form: INJ, Dinner, Dosing Weight 100, kg, Start date: 09/08/12 17:00:00, Duration: 30 day, Stop date: 10/07/12 17:00:00 SUB-Q No Longer Active [place] 09/08/2012 [facility] NovoLog Mix 70/30 FlexPen 26 u nit, 0.26 mL, Route: SUB- Q, Drug form: INJ, Lunch, Dosing Weight 100, kg, Start date: 09/08/12 12:00:00, Duration: 30 day, Stop date: 10/07/12 12:00:00 SUB-Q No Longer Active [place] 09/08/2012 [facility] [place] 5/325 oral tablet 1 tab, Route: PO, Drug Form: TAB, Dosing Weight 100, kg, Q6H, PRN Pain, Start date: 09/08/12 11:15:00, Duration: 30 day, Stop date: 10/08/12 11:14:00 PO No Longer Active Rajesh 09/08/2012 [facility] Rocephin + Sodium Chloride 0.9% IV 100 mL 1 gm, Route: IVPB, Drug form: PDR/INJ, [id number], Dosing Weight 100, kg, Start date: 09/08/12 10:00:00, Duration: 30 day, Stop date: 10/07/12 10:00:00 IVPB No Longer Active [place] 09/08/2012 [facility] Epogen (ESRD) 3,000 unit, 1 mL , Route: SUB-Q, Drug form: INJ, Q-M-W-F, Dosing Weight 100, kg, Start date: 09/07/12 17:00:00, Duration: 30 day, Stop date: 10/05/12 17:00:00 SUB-Q No Longer Active Rajesh 09/07/2012 [facility] epoetin shilpi 2,000 unit, 1 mL, Route: SUB-Q, Drug form: INJ, Q-M-W-F, Start date: 09/07/12 17:00:00, Duration: 30 day, Stop date: 10/05/12 17:00:00 SUB-Q No Longer Active Rajesh 09/07/2012 [facility] famotidine 20 mg, 1 tab, Route : PO, Drug form: TAB, Daily, Dosing Weight 100, kg, Start date: 09/07/12 9:00:00, Duration: 30 day, Stop date: 10/06/12 9:00:00 PO No Longer Active [place] 09/07/2012 [facility] Novolog 70/30 40 unit, 0.4 mL, Route: SUB-Q, Drug form: INJ, QAM, Dosing Weight 100, kg, Start date: 09/07/12 8:50:00, Duration: 30 day, Stop date: 10/06/12 8:50:00 SUB-Q No Longer Active [place] 09/07/2012 [facility] Lyrica 100 mg, 2 cap, Route: P O, Drug form: CAP, Q8H, Dosing Weight 100, kg, Start date: 09/07/12 0:00:00, Duration: 30 day, Stop date: 10/06/12 16:00:00 PO No Longer Active [place] 09/07/2012 [facility] simvastatin 40 mg, 1 tab, Rout e: PO, Drug form: TAB, Bedtime, Dosing Weight 100, kg, Start date: 09/06/12 21:00:00, Duration: 30 day, Stop date: 10/05/12 21:00:00 PO No Longer Active [place] 09/07/2012 [facility] Lyrica 75 mg, 1 cap, Route: PO , Drug form: CAP, Q12H, Dosing Weight 100, kg, Start date: 09/06/12 21:00:00, Duration: 30 day, Stop date: 10/06/12 9:00:00 PO No Longer Active [place] 09/07/2012 [facility] Levemir 70 unit, 0.7 mL, Route : SUB-Q, Drug form: INJ, Bedtime, Dosing Weight 100, kg, Start date: 09/06/12 21:00:00, Duration: 30 day, Stop date: 10/05/12 21:00:00 SUB-Q No Longer Active [place] 09/07/2012 [facility] gabapentin 100 mg oral capsule 100 mg, 1 cap, Route: PO, Drug form: CAP, Q12H, Dosing Weight 100, kg, Start date: 09/06/12 21:00:00, Duration: 30 day, Stop date: 10/06/12 9:00:00 PO No Longer Active [place] 09/07/2012 [facility] carvedilol 50 mg, 4 tab, Route : PO, Drug form: TAB, Bedtime, Dosing Weight 100, kg, Start date: 09/06/12 21:00:00, Duration: 30 day, Stop date: 10/05/12 21:00:00 PO No Longer Active [facility] 09/07/2012 [facility] Novolin R 10 unit, 0.1 mL, Rou te: IV, Drug form: INJ, ONCE, Start date: 09/06/12 20:41:00, Stop date: 09/06/12 20:41:00 IV No Longer Active [facility] 09/07/2012 [facility] Novolin R 100 unit + Sodium Chloride 0.9% IV 99 mL 99 mL, Rate: Titrate per Insulin drip protocol, Route: IV, kg, Total Volume: 100, Start date: 09/06/12 20:27:00, Stop date: 10/06/12 20:26:00 IV No Longer Active [facility] 09/07/2012 [facility] NovoLog FlexPen 10 unit, 0.1 m L, Route: SUB-Q, Drug form: SOLN, ONCE, Start date: 09/06/12 20:26:00, Stop date: 09/06/12 20:26:00 SUB-Q No Longer Active [facility] 09/07/2012 [facility] insulin aspart 20 unit, 0.2 mL , Route: SUB-Q, Drug form: SOLN, ONCE, Dosing Weight 100, kg, Start date: 09/06/12 19:01:00, Stop date: 09/06/12 19:01:00 SUB-Q No Longer Active [facility] 09/07/2012 [facility] oxybutynin 5 mg, 1 tab, Route: PO, Drug form: TAB, BID, Dosing Weight 100, kg, Start date: 09/06/12 17:00:00, Duration: 30 day, Stop date: 10/06/12 9:00:00 PO No Longer Active [facility] 09/06/2012 [facility] Novolog 70/30 45 unit, 0.45 mL , Route: SUB-Q, Drug form: INJ, Dinner, Dosing Weight 100, kg, Start date: 09/06/12 17:00:00, Duration: 30 day, Stop date: 10/05/12 17:00:00 SUB-Q No Longer Active [facility] 09/06/2012 [facility] NovoLog FlexPen 20 unit, 0.2 m L, Route: SUB-Q, Drug form: SOLN, ONCE, Start date: 09/06/12 16:31:00, Stop date: 09/06/12 16:31:00 SUB-Q No Longer Active [facility] 09/06 [facility] insulin aspart 15 unit, 0.15 m L, Route: SUB-Q, Drug form: SOLN, TID-Before Meals, Dosing Weight 100, kg, PRN Blood Glucose Results, Start date: 09/06/12 16:02:00, Duration: 30 day, Stop date: 10/06/12 16:01:00 SUB-Q No Longer Active [facility] [address] [place] [address] Dextrose 50% Syringe 12.5 gm, 25 mL, Route: IVP, Drug Form: INJ, Dosing Weight 100, kg, PRN, PRN Blood Glucose Results, Start date: 09/06/12 16:02:00, Duration: 30 day, Stop date: 10/06/12 16:01:00 IVP No Longer Active [facility] 09/06/2012 [facility] glucagon 1 mg, Route: IM, Drug form: PDR/INJ, PRN, Dosing Weight 100, kg, PRN Blood Glucose Results, Start date: 09/06/12 16:02:00, Duration: 30 day, Stop date: 10/06/12 16:01:00 IM No Longer Active [facility] 09/06/2012 [facility] ropinirole 0.25 mg, 1 tab, Rou te: PO, Drug form: TAB, Q8H, Dosing Weight 100, kg, Start date: 09/06/12 16:00:00, Duration: 30 day, Stop date: 10/06/12 8:00:00 PO No Longer Active [facility] 09/06/2012 [facility] insulin detemir 16 unit, 0.16 mL, Route: SUB-Q, Drug form: INJ, Daily, Dosing Weight 100, kg, Start date: 09/06/12 13:00:00, Duration: 30 day, Stop date: 10/06/12 9:00:00 SUB-Q No Longer Active [facility] 09/06/2012 [facility] furosemide 40 mg oral tablet 4 0 mg, 1 tab, Route: PO, Drug form: TAB, M-Tu-Fb-Sa-Higgins, Dosing Weight 100, kg, Start date: 09/06/12 12:14:00, Duration: 30 day, Stop date: 10/06/12 9:00:00 PO No Longer Active [place] 09/06/2012 [facility] carvedilol 50 mg, 4 tab, Route : PO, Drug form: TAB, U-Ny-Up-Sa-Higgins, Dosing Weight 100, kg, Start date: 09/06/12 12:13:00, Duration: 30 day, Stop date: 10/06/12 9:00:00 PO No Longer Active [place] 09/06/2012 [facility] amLODipine 5 mg, 1 tab, Route: PO, Drug form: TAB, C-Rx-Mb-Sa-Higgins, Dosing Weight 100, kg, Start date: 09/06/12 12:10:00, Duration: 30 day, Stop date: 10/06/12 9:00:00 PO No Longer Active [place] 09/06/2012 [facility] Renvela 2,400 mg, 3 tab, Route : PO, Drug form: TAB, TID- Meals, Dosing Weight 100, kg, Start date: 09/06/12 12:00:00, Duration: 30 day, Stop date: 10/06/12 8:00:00 PO No Longer Active [facility] 09/06/2012 [facility] NovoLog Mix 70/30 FlexPen 26 u nit, 0.26 mL, Route: SUB- Q, Drug form: INJ, Lunch, Dosing Weight 100, kg, Start date: 09/06/12 12:00:00, Duration: 30 day, Stop date: 10/05/12 12:00:00 SUB-Q No Longer Active [facility] 09/06/2012 [facility] Robaxin 750 mg, 1 tab, Route: PO, Drug form: TAB, TID, Dosing Weight 100, kg, Start date: 09/06/12 9:00:00, Duration: 30 day, Stop date: 10/05/12 17:00:00 PO No Longer Active [facility] 09/06/2012 [facility] docusate 100 mg, 1 cap, Route: PO, Drug form: CAP, BID, Dosing Weight 100, kg, Start date: 09/06/12 9:00:00, Duration: 30 day, Stop date: 10/05/12 17:00:00 PO No Longer Active [place] 09/06/2012 [facility] Kayexalate 30 gm, 120 mL, Rout e: PO, Drug form: SUSP, ONCE, Dosing Weight 100, kg, Start date: 09/06/12 8:52:00, Stop date: 09/06/12 8:52:00 PO No Longer Active [place] 09/06/2012 [facility] acetaminophen 650 mg, 2 tab, R oute: PO, Drug form: TAB, Q4H, Dosing Weight 100, kg, PRN Pain/Fever, Start date: 09/05/12 23:14:00, Duration: 30 day, Stop date: 10/05/12 23:13:00 PO No Longer Active [facility] 09/06/2012 [facility] Zofran 4 mg, 2 mL, Route: IV, Drug form: INJ, Q4H, Dosing Weight 100, kg, PRN Nausea, Start date: 09/05/12 23:13:00, Duration: 30 day, Stop date: 10/05/12 23:12:00 IV No Longer Active [facility] 09/06/2012 [facility] morphine Sulfate 4 mg, 2 mL, R oute: IVP, Drug form: INJ, Q3H, Dosing Weight 100, kg, PRN Pain, Start date: 09/05/12 23:11:00, Duration: 30 day, Stop date: 10/05/12 23:10:00 IVP No Longer Active [facility] 09/06/2012 [facility] heparin 5,000 unit, 1 mL, Rout e: SUB-Q, Drug form: INJ, Q12H, Dosing Weight 100, kg, Start date: 09/05/12 21:00:00, Duration: 30 day, Stop date: 10/05/12 9:00:00 SUB-Q No Longer Active [facility] 09/06/2012 [facility] SoluMedrol 40 mg, 1 mL, Route: IVP, Drug form: INJ, Q12H, Dosing Weight 100, kg, Start date: 09/05/12 21:00:00, Duration: 24 hr, Stop date: 09/06/12 9:00:00 IVP No Longer Active [facility] 09/06/2012 [facility] carvedilol 25 mg oral tablet 5 0 mg, 2 tab, PO, , 180 tab, Substitution Allowed, TAB PO Active [facility] 09/05/2012 [facility] Robaxin + Sodium Chloride 0.9% IV 100 mL 1,000 mg, 10 mL, Route: IV, Drug form: INJ, ONCE, Dosing Weight 100, kg, Start date: 09/05/12 17:31:00, Stop date: 09/05/12 17:31:00 IV No Longer Active [facility] 09/05/2012 [facility] Ativan 1 mg, 0.5 mL, Route: IV P, Drug form: INJ, ONCALL, Dosing Weight 100, kg, Start date: 09/05/12 17:30:00, Duration: 1 doses or times, prior to MRI IVP No Longer Active [facility] 09/05/2012 [facility] insulin aspart 3 unit, 0.03 mL , Route: SUB-Q, Drug form: SOLN, TID-Before Meals, Dosing Weight 100, kg, PRN Blood Glucose Results, Start date: 09/05/12 17:29:00, Duration: 30 day, Stop date: 10/05/12 17:28:00 SUB-Q No Longer Active [facility] [address] [place] [address] Dextrose 50% Syringe 25 gm, 50 mL, Route: IVP, Drug Form: INJ, Dosing Weight 100, kg, PRN, PRN Blood Glucose Results, Start date: 09/05/12 17:29:00, Duration: 30 day, Stop date: 10/05/12 17:28:00 IVP No Longer Active [facility] 09/05/2012 [facility] glucagon 1 mg, Route: IM, Drug form: PDR/INJ, PRN, Dosing Weight 100, kg, PRN Blood Glucose Results, Start date: 09/05/12 17:29:00, Duration: 30 day, Stop date: 10/05/12 17:28:00 IM No Longer Active [facility] 09/05/2012 [facility] acetaminophen-hydrocodone 325 mg-5 mg oral tablet 1 tab, Route: PO, Drug Form: TAB, Dosing Weight 100, kg, Q4H, PRN Pain Score 1-3, Start date: 09/05/12 17:26:00, Duration: 30 day, Stop date: 10/05/12 17:25:00 PO No Longer Active [facility] [address] [place] [address] acetaminophen 650 mg, 2 tab, R oute: PO, Drug form: TAB, Q4H, Dosing Weight 100, kg, PRN Pain/Fever, Start date: 09/05/12 17:26:00, Duration: 30 day, Stop date: 10/05/12 17:25:00 PO No Longer Active [facility] 09/05/2012 [facility] ondansetron 4 mg, 2 mL, Route: IVP, Drug form: INJ, Q6H, Dosing Weight 100, kg, PRN Nausea & Vomiting, Start date: 09/05/12 17:26:00, Duration: 30 day, Stop date: 10/05/12 17:25:00 IVP No Longer Active [facility] 09/05/2012 [facility] morphine Sulfate 2 mg, 1 mL, R oute: IVP, Drug form: INJ, Q3H, Dosing Weight 100, kg, PRN Pain Score 4-6, Start date: 09/05/12 17:26:00, Duration: 30 day, Stop date: 10/05/12 17:25:00 IVP No Longer Active [facility] 09/05/2012 [facility] temazepam 15 mg, 1 cap, Route: PO, Drug form: CAP, Bedtime, Dosing Weight 100, kg, PRN Insomnia, Start date: 09/05/12 17:26:00, Duration: 30 day, Stop date: 10/05/12 17:25:00 PO No Longer Active [facility] 09/05/2012 [facility] ALPRAZOLam 0.25 mg, 1 tab, Rou te: PO, Drug form: TAB, Q8H, Dosing Weight 100, kg, PRN Anxiety, Start date: 09/05/12 17:26:00, Duration: 30 day, Stop date: 10/05/12 17:25:00 PO No Longer Active [facility] 09/05/2012 [facility] ondansetron 4 mg, 2 mL, Route: IVP, Drug form: INJ, ONCE, Dosing Weight 100, kg, Priority: STAT, Start date: 09/05/12 16:13:00, Stop date: 09/05/12 16:13:00 IVP No Longer Active [place] 09/05/2012 [facility] morphine Sulfate 4 mg, 2 mL, R oute: IVP, Drug form: INJ, ONCE, Dosing Weight 100, kg, Priority: STAT, Start date: 09/05/12 16:13:00, Stop date: 09/05/12 16:13:00 IVP No Longer Active [place] 09/05/2012 [facility] cyclobenzaprine 10 mg, 1 tab, Route: PO, Drug form: TAB, ONCE, Dosing Weight 100, kg, Priority: STAT, Start date: 09/05/12 14:40:00, Stop date: 09/05/12 14:40:00 PO No Longer Active [place] 09/05/2012 [facility] morphine Sulfate 4 mg, 2 mL, R oute: IVP, Drug form: INJ, ONCE, Dosing Weight 100, kg, Priority: STAT, Start date: 09/05/12 14:40:00, Stop date: 09/05/12 14:40:00 IVP No Longer Active [place] 09/05/2012 [facility] Zyvox 600 mg, 1 tab, Route: PO , Drug form: TAB, [id number], Dosing Weight 115.909, kg, Start date: 07/11/12 17:00:00, Duration: 30 day, Stop date: 08/10/12 5:00:00 PO No Longer Active [place] 07/11/2012 [facility] Zyvox 600 mg oral tablet 600 m g, 1 tab, PO, [id number], 20 tab, Substitution Allowed, TAB PO Active [place]oug [place] 07/11/2012 [facility] Renvela 4 gm, 5 tab, Route: PO , Drug form: TAB, TID- Meals, Dosing Weight 115.909, kg, Start date: 07/07/12 17:00:00, Duration: 30 day, Stop date: 08/06/12 12:00:00 PO No Longer Active Rajesh 07/07/2012 [facility] cefepime + Sodium Chloride 0.9% IV 100 mL 1 gm, Route: IVPB, [id number], Dosing Weight 115.909, kg, (CrCl 10 - 29 ml/min), Start date: 07/07/12 15:00:00, Duration: 30 day, Stop date: 08/05/12 15:00:00 IVPB No Longer Active [place] 07/07/2012 [facility] Epogen (ESRD) 12,000 unit, 3 m L, Route: SUB-Q, Drug form: INJ, Q-M-W-F, Dosing Weight 115.909, kg, Start date: 07/06/12 17:00:00, Duration: 30 day, Stop date: 08/03/12 17:00:00 SUB-Q No Longer Active [place] 07/06/2012 [facility] Zyvox 600 mg, 300 mL, Route: I VPB, Drug form: SOLN, [id number], Dosing Weight 115.909, kg, Start date: 07/05/12 15:00:00, Duration: 30 day, Stop date: 08/04/12 3:00:00 IVPB No Longer Active Cardenas 07/05/2012 [facility] phenol topical 1.4% spray 1 sp ray, Route: PO, PRN, Drug form: SPRY PRN Sore Throat, Start date: 07/05/12 10:52:00, Duration: 30 day, Stop date: 08/04/12 10:51:00 PO No Longer Active Milan 07/05/2012 [facility] Cepacol Dual Relief Sore Throat Mint 5% topical spray 1 spray, Route: TOP, Dosing Weight 115.909, kg, PRN, PRN Sore Throat, Start date: 07/05/12 10:47:00, Duration: 30 day, Stop date: 08/04/12 10:46:00 TOP No Longer Active Milan 07/05/2012 [facility] Ativan 2 mg, 1 mL, Route: IVP, Drug form: INJ, ONCE, Dosing Weight 115.909, kg, PRN Anxiety, Start date: 07/04/12 18:25:00, BURR BENCH HAND PRIOR TO MRI IVP No Longer Active Sarvat 07/04/2012 [facility] Ativan 2 mg, 1 mL, Route: IVP, Drug form: INJ, ONCE, Dosing Weight 115.909, kg, PRN Anxiety, Start date: 07/04/12 11:36:00 IVP No Longer Active Sarvat 06/25 [facility] MiraLax 17 gm, 1 pkt, Route: P O, Drug form: PWDR, Daily, PRN Constipation, Start date: 07/03/12 19:58:00, Duration: 30 day, Stop date: 08/02/12 19:57:00 PO No Longer Active Eryn 07/04/2012 [facility] Cipro 200 mg, 100 mL, Route: I VPB, Drug form: INJ, [id number], Dosing Weight 115.909, kg, Start date: 07/03/12 18:00:00, Duration: 30 day, Stop date: 08/02/12 6:00:00 IVPB No Longer Active [facility] 07/03/2012 [facility] cefepime + Sodium Chloride 0.9% IV 100 mL 1 gm, Route: IVPB, [id number], Dosing Weight 115.909, kg, Start date: 07/03/12 18:00:00, Duration: 30 day, Stop date: 08/01/12 18:00:00 IVPB No Longer Active [facility] 07/03/2012 [facility] Insulin regular 8 unit, 0.08 m L, Route: IV, Drug form: INJ, ONCE, Dosing Weight 115.909, kg, Start date: 07/03/12 14:20:00, Stop date: 07/03/12 14:20:00 IV No Longer Active [facility] 07/03/2012 [facility] d50 syringe 1 amp, Route: IV, Drug Form: INJ, Dosing Weight 115.909, kg, ONCE, Start date: 07/03/12 14:20:00, Stop date: 07/03/12 14:20:00 IV No Longer Active Mena 07/03/2012 [facility] albuterol 0.083% inhalation solution 4.98 mg, 6 mL, Route: NEB, Drug form: SOLN, ONCE, Dosing Weight 115.909, kg, Start date: 07/03/12 14:20:00, Stop date: 07/03/12 14:20:00 NEB No Longer Active Rajesh 07/03/2012 [facility] Kayexalate 30 gm, 120 mL, Rout e: PO, Drug form: SUSP, ONCE, Start date: 07/03/12 10:34:00, Stop date: 07/03/12 10:34:00 PO No Longer Active Mougouris 07/03/2012 [facility] Ativan 2 mg, 1 mL, Route: IV, Drug form: INJ, ONCALL, Start date: 07/02/12 20:00:00, Duration: 1 doses or times IV No Longer Active Majmundar 07/03/2012 [facility] Renvela 3,200 mg, 4 tab, Route : PO, Drug form: TAB, TID- Meals, Dosing Weight 115.909, kg, Start date: 07/02/12 12:30:00, Duration: 30 day, Stop date: 08/01/12 12:00:00 PO No Longer Active Rajesh 07/02/2012 [facility] Xanax 0.25 mg oral tablet 0.25 mg, 1 tab, Route: PO, Drug form: TAB, TID, Dosing Weight 115.909, kg, PRN Anxiety, Start date: 07/02/12 12:14:00, Duration: 30 day, Stop date: 08/01/12 12:13:00 PO No Longer Active Rajesh 07/02/2012 [facility] acetaminophen 325 mg oral tablet 2 tab, Route: PO, Q4H, Dosing Weight 115.909, kg, Start date: 07/02/12 12:00:00, Duration: 30 day, Stop date: 08/01/12 8:00:00 PO No Longer Active Jamshid 07/02/2012 [facility] acetaminophen 325 mg oral tablet 650 mg, 2 tab, Route: PO, Drug form: TAB, PRN, Dosing Weight 115.909, kg, PRN as needed for pain, Start date: 07/02/12 11:38:00, Stop date: 08/01/12 11:37:00 PO No Longer Active Jamshid 07/02/2012 [facility] docusate sodium 100 mg oral capsule 100 mg, 1 cap, Route: PO, Drug form: CAP, BID, Dosing Weight 115.909, kg, PRN Constipation, Start date: 07/02/12 11:21:00, Duration: 30 day, Stop date: 08/01/12 11:20:00 PO No Longer Active Jamshid 07/02/2012 [facility] Novolog 70/30 40 unit, 0.4 mL, Route: SUB-Q, Drug form: INJ, Before Breakfast, Dosing Weight 115.909, kg, Start date: 07/02/12 7:50:00, Duration: 30 day, Stop date: 07/31/12 7:50:00 SUB-Q No Longer Active Rajesh 07/02/2012 [facility] ceftriaxone + Sodium Chloride 0.9% IV 100 mL 1 gm, Route: IVPB, [id number], Dosing Weight 115.909, kg, Start date: 07/02/12 0:00:00, Duration: 30 day, Stop date: 07/31/12 0:00:00 IVPB No Longer Active Tyronevamarcelo 07/02/2012 [facility] simvastatin 40 mg, 1 tab, Rout e: PO, Drug form: TAB, Bedtime, Dosing Weight 115.909, kg, Start date: 07/01/12 21:00:00, Duration: 30 day, Stop date: 07/30/12 21:00:00 PO No Longer Active Rajesh 07/02/2012 [facility] Levemir 70 unit, 0.7 mL, Route : SUB-Q, Drug form: INJ, Bedtime, Dosing Weight 115.909, kg, Start date: 07/01/12 21:00:00, Duration: 30 day, Stop date: 07/30/12 21:00:00 SUB-Q No Longer Active Rajesh 07/02/2012 [facility] Lyrica 25 mg, 1 cap, Route: PO , Drug form: CAP, QPM, Dosing Weight 115.909, kg, Start date: 07/01/12 17:00:00, Duration: 30 day, Stop date: 07/30/12 17:00:00 PO No Longer Active Majmundar 07/01/2012 [facility] Novolog 70/30 45 unit, 0.45 mL , Route: SUB-Q, Drug form: INJ, Before Dinner, Dosing Weight 115.909, kg, Start date: 07/01/12 16:50:00, Duration: 30 day, Stop date: 07/30/12 16:50:00 SUB-Q No Longer Active Rajesh 07/01/2012 [facility] Renvela 2,400 mg, 3 tab, Route : PO, Drug form: TAB, TID- Meals, Dosing Weight 115.909, kg, Start date: 07/01/12 12:00:00, Duration: 30 day, Stop date: 07/31/12 8:00:00 PO No Longer Active Rajesh 07/01/2012 [facility] oxybutynin 5 mg, 1 tab, Route: PO, Drug form: TAB, Q12H, Dosing Weight 115.909, kg, Start date: 07/01/12 12:00:00, Duration: 30 day, Stop date: 07/31/12 9:00:00 PO No Longer Active Rajesh 07/01/2012 [facility] Nephro-Melodie Rx 1 tab, Route: P O, Drug Form: TAB, Dosing Weight 115.909, kg, Lunch, Start date: 07/01/12 12:00:00, Duration: 30 day, Stop date: 07/30/12 12:00:00 PO No Longer Active [facility] 07/01/2012 [facility] lisinopril 20 mg, 1 tab, Route : PO, Drug form: TAB, Q12H, Dosing Weight 115.909, kg, Start date: 07/01/12 12:00:00, Duration: 30 day, Stop date: 07/31/12 9:00:00 PO No Longer Active [facility] 07/01/2012 [facility] gabapentin 100 mg oral capsule 200 mg, 2 cap, Route: PO, Drug form: CAP, Q12H, Dosing Weight 115.909, kg, Start date: 07/01/12 12:00:00, Stop date: 07/31/12 9:00:00 PO No Longer Active mundamoises 07/01/2012 [facility] NovoLog Mix 70/30 FlexPen 26 u nit, 0.26 mL, Route: SUB- Q, Drug form: INJ, Before Lunch, Dosing Weight 115.909, kg, Start date: 07/01/12 11:50:00, Duration: 30 day, Stop date: 07/30/12 11:50:00 SUB-Q No Longer Active [facility] 07/01/2012 [facility] pneumococcal 23-valent vaccine 0.5 ml, Route: IM, Drug Form: INJ, Daily, Start date: 07/01/12 9:00:00, Duration: 1 doses or times, Stop date: 07/01/12 9:00:00 IM No Longer Active [facility] 07/01/2012 [facility] atropine 0.5 mg, 5 mL, Route: IVP, Drug form: INJ, PRN, PRN Bradycardia, Start date: 07/01/12 5:22:00, Duration: 30 day, Stop date: 07/31/12 5:21:00 IVP No Longer Active [facility] 07/01/2012 [facility] nitroglycerin 0.4 mg sublingual tablet 0.4 mg, 1 tab, Route: SL, Drug form: TAB, Q5Min, PRN Chest Pain, Start date: 07/01/12 5:22:00, Duration: 30 day, Stop date: 07/31/12 5:21:00 SL No Longer Active Rajesh 07/01/2012 [facility] Lyrica 25 mg, PO, Daily, Subst itution Allowed PO Active Rajesh 07/01/2012 [facility] Saline Flush 0.9% 5 ml, Route: IVP, Drug Form: INJ, Dosing Weight 115.909, kg, PRN, PRN Line Flush, Start date: 07/01/12 3:20:00, Duration: 30 day, Stop date: 07/31/12 3:19:00 IVP No Longer Active Mena 07/01/2012 [facility] morphine Sulfate 2 mg, 1 mL, R oute: IVP, Drug form: INJ, Q3H, Dosing Weight 115.909, kg, PRN Pain Score 4-6, Start date: 07/01/12 3:20:00, Stop date: 07/31/12 3:19:00 IVP No Longer Active Mena 07/01/2012 [facility] ondansetron 4 mg, 2 mL, Route: IVP, Drug form: INJ, Q6H, Dosing Weight 115.909, kg, PRN Nausea & Vomiting, Start date: 07/01/12 3:20:00, Duration: 30 day, Stop date: 07/31/12 3:19:00 IVP No Longer Active Mena 07/01/2012 [facility] ceftriaxone + Sodium Chloride 0.9% IV 100 mL 1 gm, Route: IVPB, ONCE, Dosing Weight 115.909, kg, Start date: 06/30/12 23:17:00, Stop date: 06/30/12 23:17:00 IVPB No Longer Active Edith 07/01/2012 [facility] morphine Sulfate 2 mg, 0.2 mL, Route: IVP, Drug form: INJ, ONCE, Dosing Weight 115.909, kg, Priority: STAT, Start date: 06/30/12 23:10:00, Stop date: 06/30/12 23:10:00 IVP No Longer Active Edith 07/01/2012 [facility] Novolog 70/30 45 unit, SUB-Q, Dinner, Substitution Allowed SUB-Q Active Rajesh 07/01 [facility] NovoLog Mix 70/30 FlexPen 26 u nit, SUB-Q, Lunch, Substitution Allowed SUB-Q Active Mena 07/01/2012 [facility] Novolog 70/30 40 unit, SUB-Q, QAM, Substitution Allowed SUB-Q Active Mena 07/01 [facility] simvastatin 40 mg, 1 tab, PO, Bedtime, 30 tab, Substitution Allowed PO Active Mena 07/01/2012 [facility] amLODipine 5 mg, PO, Daily, Higgins bstitution Allowed PO Active 07/01/2012 [facility] lisinopril 20 mg oral tablet 2 0 mg, 1 tab, PO, BID, 30 tab, Substitution Allowed, TAB PO Active [facility] 07/01/2012 [facility] oxybutynin 5 mg oral tablet 5 mg, 1 tab, PO, BID, 30 tab, Substitution Allowed, TAB PO Active [facility] 07/01/2012 [facility] gabapentin 100 mg oral capsule 100 mg, 1 cap, PO, BID, 240 cap, Substitution Allowed PO Active [facility] 07/01/2012 [facility] carvedilol 25 mg oral tablet 5 0 mg, 2 tab, PO, BID, 60 tab, Substitution Allowed, TAB PO Active 07/01/2012 [facility] ropinirole 0.25 mg oral tablet 0.25 mg, 1 tab, PO, TID, 90 tab, Substitution Allowed, TAB PO Active 07/01/2012 [facility] Renvela 800 mg oral tablet 2,4 00 mg, 3 tab, PO, TID- Meals, 270 tab, Substitution Allowed, TAB PO Active [facility] 07/01/2012 [facility] albuterol 0.083% inhalation solution 19.92 mg, 24 mL, Route: NEB, Drug form: SOLN, ONCE, Dosing Weight 115.909, kg, Start date: 06/30/12 21:31:00, Stop date: 06/30/12 21:31:00 NEB No Longer Active [facility] 07/01/2012 [facility] Dextrose 50% Syringe 50 gm, 10 0 mL, Route: IV, Drug Form: INJ, Dosing Weight 115.909, kg, ONCE, Start date: 06/30/12 21:31:00, Stop date: 06/30/12 21:31:00 IV No [facility]er Active [facility] 07[facility]2012 [facility] insulin regular human recombinant 100 un its/mL injectable solution 10 unit, 0.1 mL, Route: IVP, Drug form: INJ, ONCE, Dosing Weight 115.909, kg, Start date: 06/30/12 21:31:00, Stop date: 06/30/12 21:31:00 IVP No Longer Active Edith 04/2012 [facility] calcium gluconate + Sodium Chloride 0.9% IV 100 mL 2 gm, 20 mL, Route: IV, ONCE, Dosing Weight 115.909, kg, Start date: 06/30/12 21:31:00, Stop date: 06/30/12 21:31:00 IV No Longer Active Edith 07/01/2012 [facility] sodium polystyrene sulfonate 3 0 gm, 120 mL, Route: PO, Drug form: SUSP, ONCE, Dosing Weight 115.909, kg, Start date: 06/30/12 21:31:00, Duration: 1 doses or times, Stop date: 06/30/12 21:31:00 PO No Longer Active Edith 07/01/2012 [facility] Saline Flush 0.9% 5 ml, Route: IVP, Drug Form: INJ, Dosing Weight 115.909, kg, PRN, PRN Line Flush, Start date: 06/30/12 20:29:00, Duration: 24 hr, Stop date: 07/01/12 20:28:00 IVP No Longer Active Rajesh 07/01/2012 [facility] Epogen (ESRD) 10,000 unit, 1 m L, Route: SUB-Q, Drug form: INJ, Q-M-W-F, Start date: 02/17/12 17:00:00, Duration: 30 day, Stop date: 03/16/12 17:00:00 SUB-Q No Longer Active Rajesh 02/17/2012 [facility] cefepime 1 gm, Route: IVPB, AB [id number], Start date: 02/15/12 12:00:00, Duration: 30 day, Stop date: 03/16/12 0:00:00 IVPB No Longer Active Mougourduran 02/15/2012 [facility] Reglan 5 mg oral tablet 5 mg, 1 tab, Route: PO, Drug form: TAB, Before Meals & Bedtime, Start date: 02/15/12 11:30:00, Duration: 30 day, Stop date: 03/16/12 7:30:00 PO No Longer Active Kafrouni 02/15/2012 [facility] tramadol 50 mg oral tablet 50 mg, 1 tab, Route: PO, Drug form: TAB, Q12H, PRN as needed for pain, Start date: 02/15/12 11:05:00, Duration: 30 day, Stop date: 03/16/12 11:04:00 PO No Longer Active Rajesh 02/15/2012 [facility] lactulose 20 gm, 30 mL, Route: PO, Drug form: SYRP, Daily, Start date: 02/15/12 9:00:00, Duration: 30 day, Stop date: 03/15/12 9:00:00 PO No Longer Active Aleksey 02/15/2012 [facility] LR IV 500 mL 500 mL, Rate: 125 ml/hr, Infuse over: 4 hr, Route: IV, Dosing Weight 81.818 kg, Total Volume: 500, Start date: 02/15/12 7:39:00, Duration: 30 day, Stop date: 03/16/12 7:38:00 IV No Longer Active Mina 02/15/2012 [facility] LR IV 500 mL 500 mL 500 mL, Ra te: 40 ml/hr, Infuse over: 12.5 hr, Route: IV, Dosing Weight 81.818 kg, Total Volume: 500, Start date: 02/15/12 7:39:00, Duration: 30 day, Stop date: 03/16/12 7:38:00 IV No Longer Active Cindytricia 02/15/2012 [facility] Kayexalate 30 gm, 120 mL, Rout e: PO, Drug form: SUSP, ONCE, Start date: 02/14/12 16:24:00, Stop date: 02/14/12 16:24:00 PO No Longer Active Rajesh 02/14/2012 [facility] lactulose 20 gm, 30 mL, Route: PO, Drug form: SYRP, Q6H, Start date: 02/13/12 18:00:00, Duration: 6 doses or times, Stop date: 02/15/12 0:00:00 PO No Longer Active Aleksey 02/13/2012 [facility] MiraLax 17 gm, 1 pkt, Route: P O, Drug form: PWDR, BID, Start date: 02/11/12 17:00:00, Duration: 30 day, Stop date: 03/12/12 9:00:00 PO No Longer Active Kafrouni [facility] Dulcolax Laxative 10 mg, 1 sup p, Route: KS, Drug form: SUPP, ONCE, Start date: 02/11/12 12:14:00, Stop date: 02/11/12 12:14:00 KS No Longer Active Kafrouni [facility] carvedilol 12.5 mg oral tablet 12.5 mg, 1 tab, PO, Q12H, 60 tab, Substitution Allowed, TAB PO Active Moug ouris 02/11/2012 [facility] Bentyl 20 mg oral tablet 20 mg , 1 tab, PO, QID, 30 tab, Substitution Allowed, TAB PO Active Mougouris 02/11/2012 [facility] [place] 10/325 oral tablet 1 tab , PO, Q4H, PRN, 30 tab, Pain, Substitution Allowed, Maintenance, TAB PO Active Mougouris 02/11/2012 [facility] [place] 10/325 oral tablet 1 tab , Route: PO, Drug Form: TAB, Q4H, PRN Pain, Start date: 02/11/12 11:17:00, Duration: 30 day, Stop date: 03/12/12 11:16:00 PO No Longer Active Mougouris 02/11/2012 [facility] carvedilol 12.5 mg, 1 tab, Rou te: PO, Drug form: TAB, Q12H, Start date: 02/10/12 21:00:00, Duration: 30 day, Stop date: 03/11/12 9:00:00 PO No Longer Active Rajesh 02/11/2012 [facility] Bentyl 20 mg, 1 tab, Route: PO , Drug form: TAB, QID, Start date: 02/10/12 17:00:00, Duration: 30 day, Stop date: 03/11/12 13:00:00 PO No Longer Active Mougouris 0 02/10/2012 [facility] hydrALAZINE 20 mg, 1 mL, Route : IV, Drug form: INJ, Q6H, PRN Elevated BP, Start date: 02/08/12 1:54:00, Duration: 30 day, Stop date: 03/09/12 1:53:00 IV No Longer Active Jaspreet 02/08/2012 [facility] docusate sodium 100 mg oral capsule 100 mg, 1 cap, Route: PO, Drug form: CAP, BID, Start date: 02/06/12 12:30:00, Duration: 30 day, Stop date: 03/07/12 9:00:00 PO No Longer Active Le 02/06/2012 [facility] Phenergan 12.5 mg, 0.5 mL, Rou te: IVPB, Q4H, PRN Nausea & Vomiting, Start date: 02/05/12 21:01:00, Duration: 30 day, Stop date: 03/06/12 21:00:00 IVPB No Longer Active [facility] 02/06/2012 [facility] Cipro 250 mg, 1 tab, Route: PO , Drug form: TAB, Q48H, Start date: 02/03/12 13:00:00, Duration: 30 day, Stop date: 03/02/12 13:00:00 PO No Longer Active Chula 01/23 [facility] Detrol 4 mg, 2 tab, Route: PO, Drug form: TAB, Daily, Start date: 02/02/12 9:00:00, Duration: 30 day, Stop date: 03/02/12 9:00:00 PO No Longer Active Chlua 01/23 [facility] pravastatin 80 mg, 4 tab, Rout e: PO, Drug form: TAB, Bedtime, Start date: 02/01/12 21:00:00, Duration: 30 day, Stop date: 03/01/12 21:00:00 PO No Longer Active Chula 02/02/2012 [facility] Levemir 40 unit, 0.4 mL, Route : SUB-Q, Drug form: INJ, Bedtime, Start date: 02/01/12 21:00:00, Duration: 30 day, Stop date: 03/01/12 21:00:00 SUB-Q No Longer Active Chula 02/02/2012 [facility] carvedilol 6.25 mg, 2 tab, Rou te: PO, Drug form: TAB, Q12H, Start date: 02/01/12 21:00:00, Duration: 30 day, Stop date: 03/02/12 9:00:00 PO No Longer Active Rajesh 02/02/2012 [facility] clonidine 0.2 mg oral tablet 0 .2 mg, 1 tab, Route: PO, Drug form: TAB, [id number], Start date: 02/01/12 18:00:00, Duration: 30 day, Stop date: 03/02/12 6:00:00 PO No Longer Active Chula 02/01/2012 [facility] Detrol LA 4 mg, 1 cap, Route: PO, Drug form: CAP, QPM, Start date: 02/01/12 17:00:00, Duration: 30 day, Stop date: 03/01/12 17:00:00 PO No Longer Active Chula 06/2012 [facility] riboflavin 100 mg, 1 tab, Rout e: PO, Drug form: TAB, Daily, Start date: 02/01/12 17:00:00, Duration: 30 day, Stop date: 03/02/12 9:00:00 PO No Longer Active Chula 02/01/2012 [facility] Vitamin B6 100 mg, 1 tab, Rout e: PO, Drug form: TAB, Daily, Start date: 02/01/12 17:00:00, Duration: 30 day, Stop date: 03/02/12 9:00:00 PO No Longer Active Chula 02/01/2012 [facility] folic acid 1 mg, 1 tab, Route: PO, Drug form: TAB, Daily, Start date: 02/01/12 17:00:00, Duration: 30 day, Stop date: 03/02/12 9:00:00 PO No Longer Active Chula 02/01/2012 [facility] Vitamin B12 1,000 microgram, 2 tab, Route: PO, Drug form: TAB, Daily, Start date: 02/01/12 17:00:00, Duration: 30 day, Stop date: 03/02/12 9:00:00 PO No Longer Active Chula 02/01/2012 [facility] PhosLo Gelcap 2,001 mg, 3 cap, Route: PO, Drug form: CAP, TID-Meals, Start date: 02/01/12 17:00:00, Duration: 30 day, Stop date: 03/02/12 12:00:00 PO No Longer Active Chula 02/01/2012 [facility] ferrous sulfate 325 mg, 1 tab, Route: PO, Drug form: ECTAB, TID-Before Meals, Start date: 02/01/12 16:30:00, Duration: 30 day, Stop date: 03/02/12 11:30:00 PO No Longer Active [facility] 02/01/2012 [facility] gemfibrozil 600 mg, 1 tab, Rou te: PO, Drug form: TAB, BID-Before Meals, Start date: 02/01/12 16:30:00, Duration: 30 day, Stop date: 03/02/12 7:30:00 PO No Longer Active [facility] 02/01/2012 [facility] Dextrose 50% in Water IV 50 mL , Route: IVP, Start date: 02/01/12 15:23:00, Duration: 30 day, Stop date: 03/02/12 15:22:00, PRN Blood Glucose Results IVP No Longer Active [facility] 02/01/2012 [facility] glucagon 1 mg, Route: IM, Drug form: PDR/INJ, PRN, PRN Blood Glucose Results, Start date: 02/01/12 15:23:00, Duration: 30 day, Stop date: 03/02/12 15:22:00 IM No Longer Active [facility] 02/01/2012 [facility] NovoLog FlexPen 6 unit, 0.06 m L, Route: SUB-Q, Drug form: SOLN, Sliding Scale, PRN Blood Glucose Results, Start date: 02/01/12 15:23:00, Duration: 30 day, Stop date: 03/02/12 15:22:00 SUB-Q No Longer Active [facility] 02/01/2012 [facility] NovoLog FlexPen 1 unit, 0.01 m L, Route: SUB-Q, Drug form: SOLN, Sliding Scale, PRN Blood Glucose Results, Start date: 02/01/12 15:22:00, Duration: 30 day, Stop date: 03/02/12 15:21:00 SUB-Q No Longer Active [facility] 02/01/2012 [facility] gabapentin 300 mg oral capsule 300 mg, 1 cap, Route: PO, Drug form: CAP, Q12H, Start date: 02/01/12 15:00:00, Duration: 30 day, Stop date: 03/02/12 9:00:00 PO No Longer Active [facility] 02/01/2012 [facility] furosemide 40 mg oral tablet 4 0 mg, 1 tab, Route: PO, Drug form: TAB, Daily, Start date: 02/01/12 15:00:00, Duration: 30 day, Stop date: 03/02/12 9:00:00 PO No Longer Active Chula 02/01/2012 [facility] diltiazem 240 mg, 1 cap, Route : PO, Drug form: ERCAP, Daily, Start date: 02/01/12 15:00:00, Duration: 30 day, Stop date: 03/02/12 9:00:00 PO No Longer Active Chula 02/01/2012 [facility] Vitamin C 500 mg, 1 tab, Route : PO, Drug form: TAB, Daily, Start date: 02/01/12 15:00:00, Duration: 30 day, Stop date: 03/02/12 9:00:00 PO No Longer Active Chula 02/01/2012 [facility] Dilaudid 2 mg, 1 mL, Route: IV , Drug form: INJ, Q4H, PRN Pain, Start date: 02/01/12 11:18:00, Duration: 30 day, Stop date: 03/02/12 11:17:00 IV No Longer Active Hector 02/01/2012 [facility] belladonna-opium 16.2 mg-60 mg rectal suppository 1 supp, Route: KS, Drug Form: SUPP, Q12H, PRN Spasm, Start date: 02/01/12 10:07:00, Duration: 30 day, Stop date: 03/02/12 10:06:00 KS No Longer Active Samanthat 02/01/2012 [facility] clonidine 0.1 mg, 1 tab, Route : PO, Drug form: TAB, Q6H, PRN Elevated BP, Start date: 02/01/12 0:56:00, Duration: 30 day, Stop date: 03/02/12 0:55:00 PO No Longer Active [facility] 02/01/2012 [facility] morphine Sulfate 4 mg, 2 mL, R oute: IVP, Drug form: INJ, Q3H, PRN Pain Score 7-10, Start date: 02/01/12 0:56:00, Duration: 30 day, Stop date: 03/02/12 0:55:00 IVP No Longer Active [facility] 02/01/2012 [facility] erythromycin ophthalmic 0.5% ointment 0.5 inch, LEFT EYE, QID, 1 tube, Substitute Allowed LEFT EYE Active Moug ouris 02/01/2012 [facility] Cipro 250 mg, 1 tab, Route: PO , Drug form: TAB, ONCE, Start date: 01/31/12 22:33:00, Stop date: 01/31/12 22:33:00 PO No Longer Active Hamill 02/01/2012 [facility] morphine Sulfate 6 mg, 3 mL, R oute: IVP, Drug form: INJ, ONCE, Priority: STAT, Start date: 01/31/12 21:40:00, Stop date: 01/31/12 21:40:00 IVP No Longer Active Hamill 02/01/2012 [facility] morphine Sulfate 8 mg, 4 mL, R oute: IVP, Drug form: INJ, ONCE, Priority: STAT, Start date: 01/31/12 19:06:00, Stop date: 01/31/12 19:06:00 IVP No Longer Active Hamill 02/01/2012 [facility] Vitamin C 500 mg oral tablet 5 00 mg, 1 tab, PO, Daily, 30 tab, Substitution Allowed, TAB PO Active [facility] 01/29/2012 [facility] PhosLo Gelcap 667 mg oral capsule 2,001 mg, 3 cap, PO, TID-Meals, 90 cap, Substitution Allowed, CAP PO Active [facility] 01/29/2012 [facility] carvedilol 3.125 mg oral tablet 6.25 mg, 2 tab, PO, Q12H, 60 tab, Substitution Allowed, TAB PO Active [facility] 01/29/2012 [facility] Cipro 250 mg oral tablet 250 m g, 1 tab, PO, [id number], 7 tab, Substitution Allowed, TAB PO Active [facility] 01/29/2012 [facility] Vitamin B12 500 mcg oral tablet 1,000 microgram, 2 tab, PO, Daily, 30 tab, Substitution Allowed, TAB PO Active [facility] 01/29/2012 [facility] ferrous sulfate 325 mg oral enteric coated tablet 325 mg, 1 tab, PO, TID-Before Meals, 90 tab, Substitution Allowed, ECTAB PO Active [facility] 01/29/2012 [facility] folic acid 1 mg oral tablet 1 mg, 1 tab, PO, Daily, 30 tab, Substitution Allowed, TAB PO Active [facility] 01/29/2012 [facility] Ditropan XL 5 mg oral tablet, extended release 15 mg, 3 tab, PO, Daily, 30 tab, Substitution Allowed, ERTAB PO Active Mougouris 01/29/2012 [facility] Vitamin B6 100 mg oral tablet 100 mg, 1 tab, PO, Daily, 30 tab, Substitution Allowed, TAB PO Active Moug ouris 01/29/2012 [facility] riboflavin 100 mg oral tablet 100 mg, 1 tab, PO, Daily, 30 tab, Substitution Allowed, TAB PO Active Moug ouris 01/29/2012 [facility] Detrol LA 4 mg oral capsule, extended release 4 mg, 1 cap, PO, Daily, 30 cap, Substitution Allowed PO Active Mougouris 01/29/2012 [facility] Detrol LA 4 mg, 1 cap, Route: PO, Drug form: CAP, Daily, Start date: 01/27/12 9:28:00, Duration: 30 day, Stop date: 02/26/12 9:00:00 PO No Longer Active Hoggatt 01/2012 [facility] belladonna-opium 16.2 mg-60 mg rectal suppository 1 supp, Route: KS, Drug Form: SUPP, ONCE, Start date: 01/26/12 20:45:00, Stop date: 01/26/12 20:45:00 KS No Longer Active [facility] 01/27/2012 [facility] Ativan 1 mg, 0.5 mL, Route: IV , Drug form: INJ, ONCALL, Start date: 01/24/12 22:00:00, Duration: 1 doses or times, Stop date: 01/25/12 0:00:00 IV No Longer Active Crystal 01/25/2012 [facility] MiraLax 17 gm, 1 pkt, Route: P O, Drug form: PWDR, Bedtime, Start date: 01/24/12 21:00:00, Duration: 30 day, Stop date: 02/22/12 21:00:00 PO No Longer Active Mougouris 01/25/2012 [facility] Cipro 250 mg, 1 tab, Route: PO , Drug form: TAB, [id number], Start date: 01/24/12 12:00:00, Duration: 30 day, Stop date: 02/21/12 12:00:00 PO No Longer Active Abdulla 10/2011 [facility] albuterol 0.083% inhalation solution 2.49 mg, 3 mL, Route: NEB, Drug form: SOLN, RQ6H, PRN Wheezing, PRN wheezing or SOB, Start date: 01/24/12 11:43:00, Duration: 30 day, Stop date: 02/23/12 11:42:00 NEB No Longer Active Abdulla 10/2011 [facility] Ditropan XL 15 mg, 3 tab, Rout e: PO, Drug form: ERTAB, Daily, Start date: 01/24/12 9:00:00, Duration: 30 day, Stop date: 02/22/12 9:00:00 PO No Longer Active Cesar 01/24/2012 [facility] MiraLax 17 gm, 1 pkt, Route: P O, Drug form: PWDR, ONCE, Start date: 01/23/12 17:20:00, Stop date: 01/23/12 17:20:00 PO No Longer Active Bobby 01/23/2012 [facility] Senokot 17.2 mg, 2 tab, Route: PO, Drug form: TAB, Bedtime, PRN Constipation, Start date: 01/23/12 16:59:00, Duration: 30 day, Stop date: 02/22/12 16:58:00 PO No Longer Active Bobby 01/23/2012 [facility] Dilaudid 2 mg, 1 mL, Route: IV P, Drug form: INJ, Q3H, PRN Pain, Start date: 01/23/12 16:58:00, Duration: 30 day, Stop date: 02/22/12 16:57:00 IVP No Longer Active Bobby 01/23/2012 [facility] cefepime 1 gm, Route: IVPB, AB [id number], Start date: 01/22/12 13:00:00, Duration: 30 day, Stop date: 02/21/12 1:00:00 IVPB No Longer Active Mougouris 01/22/2012 [facility] Maxipime 1 gm, Route: IVPB, AB [id number], Start date: 01/22/12 13:00:00, Duration: 30 day, Stop date: 02/20/12 13:00:00 IVPB No Longer Active Mougouris 01/22/2012 [facility] Procrit 10,000 unit, 1 mL, Rou te: SUB-Q, Drug form: INJ, Q-M-W-F, Start date: 01/20/12 9:00:00, Duration: 30 day, Stop date: 02/17/12 9:00:00 SUB-Q No Longer Active Bobby 01/20/2012 [facility] ferrous sulfate 325 mg, 1 tab, Route: PO, Drug form: ECTAB, TID-Before Meals, Start date: 01/20/12 8:00:00, Duration: 30 day, Stop date: 02/18/12 16:30:00 PO No Longer Active Bobby 01/20/2012 [facility] Venofer 200 mg, Route: IV, Zach g form: INJ, Daily, Start date: 01/19/12 20:00:00, Duration: 4 day, Stop date: 01/22/12 20:00:00 IV No Longer Active Bobby 12/24 [facility] Lasix 20 mg, 2 mL, Route: IVP, Drug form: INJ, PRN, PRN Blood Transfusion, Start date: 01/14/12 17:50:00, Duration: 2 doses or times, Stop date: Limited # of times IVP No Longer Active Bobby 01/14/2012 [facility] Colace 100 mg oral capsule 100 mg, 1 cap, Route: PO, Drug form: CAP, BID, Start date: 01/14/12 17:00:00, Duration: 30 day, Stop date: 02/13/12 9:00:00 PO No Longer Active Mougouris 01/14/2012 [facility] Dulcolax Laxative 10 mg, 1 sup p, Route: KS, Drug form: SUPP, Daily, PRN Constipation, Start date: 01/14/12 14:23:00, Stop date: 02/13/12 20:00:00 KS No Longer Active Mougouris 01/14/2012 [facility] Fleet Enema 133 ml, Route: KS, ONCE, Start date: 01/14/12 14:23:00, Stop date: 01/14/12 14:23:00 KS No Longer Active Mougouris 01/14/2012 [facility] lactulose 20 gm, 30 ml, Route: PO, Drug Form: SYRP, Daily, PRN Constipation, Start date: 01/14/12 14:23:00, Duration: 30 day, Stop date: 02/13/12 14:22:00 PO No Longer Active Mougouris 01/14/2012 [facility] Lasix 20 mg, 2 mL, Route: IV, Drug form: INJ, ONCALL, PRN Blood Transfusion, Start date: 01/14/12 13:49:00, Duration: 24 hr, Stop date: 01/15/12 13:48:00 IV No Longer Active Bobby 01/14/2012 [facility] Sodium Chloride 0.9% IV IV, 30 ml/hr, PRN, PRN Blood Transfusion, Start date: 01/14/12 13:48:00, Duration: 24, 250 ml IV No Longer Active Bobby 01/14/2012 [facility] Lasix 20 mg, 2 mL, Route: IV, Drug form: INJ, After Transfusion, PRN Blood Transfusion, Start date: 01/14/12 9:45:00, Duration: 1 day, Stop date: 01/15/12 9:44:00 IV No Longer Active Bobby 01/14/2012 [facility] belladonna-opium 16.2 mg-60 mg rectal suppository 1 supp, Route: KS, Drug Form: SUPP, Q6H, PRN Spasm, Start date: 01/14/12 9:44:00, Stop date: 01/27/12 20:00:00 KS No Longer Active Hoggatt 01/14/2012 [facility] PhosLo Gelcap 2,001 mg, 3 cap, Route: PO, Drug form: CAP, TID-Meals, with meals, Start date: 01/11/12 8:00:00, Duration: 30 day, Stop date: 02/09/12 17:00:00 PO No Longer Active Rajesh 01/11/2012 [facility] furosemide 100 mg + Sodium Chloride 0.9% IV 90 mL 90 mL, Rate: 10 ml/hr, Infuse over: 10 hr, Route: IV, Dosing Weight 100.227 kg, Total Volume: 100, Start date: 01/10/12 20:00:00, Duration: 30 day, Stop date: 02/09/12 19:59:00 IV No Longer Active Rajesh 01/11/2012 [facility] Lasix 80 mg, 8 mL, Route: IVP, Drug form: INJ, ONCE, Start date: 01/10/12 18:30:00, Stop date: 01/10/12 18:30:00 IVP No Longer Active Rajesh 01/10/2012 [facility] sodium bicarbonate 8.4% 50 mEq , 50 mL, Route: IV, Drug Form: INJ, ONCE, Start date: 01/10/12 18:00:00, Stop date: 01/10/12 18:00:00 IV No Longer Active Rajesh 01/09 [facility] Kayexalate 30 gm, 120 mL, Rout e: PO, Drug form: SUSP, ONCE, Start date: 01/10/12 10:39:00, Stop date: 01/10/12 10:39:00 PO No Longer Active Rajesh 01/10/2012 [facility] Levemir 44 unit, 0.44 mL, Rout e: SUB-Q, Drug form: INJ, Bedtime, Start date: 01/09/12 21:00:00, Duration: 30 day, Stop date: 02/07/12 21:00:00 SUB-Q No Longer Active Chula 01/10/2012 [facility] sodium bicarbonate 325 mg oral tablet 650 mg, 1 tab, Route: PO, Drug Form: TAB, BID, Start date: 01/09/12 17:00:00, Duration: 30 day, Stop date: 02/08/12 9:00:00 PO No Longer Active Rajesh 01/09/2012 [facility] calcium gluconate 1,000 mg, 10 mL, Route: IVPB, ONCE, Start date: 01/09/12 16:34:00, Stop date: 01/09/12 16:34:00 IVPB No Longer Active Chula 01/09/2012 [facility] Vitamin C 500 mg, 1 tab, Route : PO, Drug form: TAB, Daily, Start date: 01/09/12 9:00:00, Duration: 30 day, Stop date: 02/07/12 9:00:00 PO No Longer Active Bobby 01/09/2012 [facility] folic acid 1 mg oral tablet 1 mg, 1 tab, Route: PO, Drug form: TAB, Daily, Start date: 01/09/12 9:00:00, Duration: 30 day, Stop date: 02/07/12 9:00:00 PO No Longer Active Bobby 01/09/2012 [facility] Vitamin B12 1,000 microgram, 2 tab, Route: PO, Drug form: TAB, Daily, Start date: 01/09/12 9:00:00, Duration: 30 day, Stop date: 02/07/12 9:00:00 PO No Longer Active [facility] 01/09/2012 [facility] riboflavin 100 mg, 1 tab, Rout e: PO, Drug form: TAB, Daily, Start date: 01/09/12 9:00:00, Duration: 30 day, Stop date: 02/07/12 9:00:00 PO No Longer Active [facility] 01/09/2012 [facility] Vitamin B6 100 mg, 1 tab, Rout e: PO, Drug form: TAB, Daily, Start date: 01/09/12 9:00:00, Duration: 30 day, Stop date: 02/07/12 9:00:00 PO No Longer Active [facility] 01/09/2012 [facility] Lasix 80 mg, 8 mL, Route: IVP, Drug form: INJ, Q12H, Start date: 01/08/12 21:00:00, Duration: 30 day, Stop date: 02/07/12 9:00:00 IVP No Longer Active Rajesh 01/08 [facility] ferrous sulfate 325 mg, 1 tab, Route: PO, Drug form: ECTAB, TID-Before Meals, Start date: 01/08/12 16:30:00, Duration: 30 day, Stop date: 02/07/12 11:30:00 PO No Longer Active [facility] 01/08/2012 [facility] acetaminophen-hydrocodone 325 mg-5 mg oral tablet 2 tab, Route: PO, Drug Form: TAB, Q6H, PRN Pain, Start date: 01/08/12 15:49:00, Duration: 30 day, Stop date: 02/07/12 15:48:00 PO No Longer Active [facility] 01/08/2012 [facility] PhosLo Gelcap 667 mg, 1 cap, R oute: PO, Drug form: CAP, TID-Meals, with meals, Start date: 01/08/12 12:00:00, Duration: 30 day, Stop date: 02/07/12 8:00:00 PO No Longer Active Rajesh 01/08/2012 [facility] Lasix 40 mg, 4 mL, Route: IVP, Drug form: INJ, Q12H, Start date: 01/07/12 21:00:00, Duration: 30 day, Stop date: 02/06/12 9:00:00 IVP No Longer Active Mena 01/07 [facility] Dextrose 50% Syringe 12.5 gm, 25 mL, Route: IVP, Drug Form: INJ, PRN, PRN Blood Glucose Results, Start date: 01/07/12 12:05:00, Duration: 30 day, Stop date: 02/06/12 12:04:00 IVP No Longer Active Mena 01/07/2012 [facility] glucagon 1 mg, Route: IM, Drug form: PDR/INJ, PRN, PRN Blood Glucose Results, Start date: 01/07/12 12:05:00, Duration: 30 day, Stop date: 02/06/12 12:04:00 IM No Longer Active Mena 01/07/2012 [facility] insulin aspart 10 unit, 0.1 mL , Route: SUB-Q, Drug form: SOLN, Sliding Scale, PRN Blood Glucose Results, BG > = 350 mg/dl;, Start date: 01/07/12 12:05:00, Stop date: 02/06/12 12:04:00 SUB-Q No Longer Active [facility] 01/07/2012 [facility] Lasix 40 mg, 4 mL, Route: IV, Drug form: INJ, ONCE, Priority: STAT, Start date: 01/07/12 11:36:00, Stop date: 01/07/12 11:36:00 IV No Longer Active [facility] 01/06 [facility] magnesium sulfate 2 gm, 50 mL, Route: IVPB, Drug form: INJ, ONCE, Total dose = 2 gm, Start date: 01/05/12 18:26:00, Duration: 1 doses or times, Stop date: 01/05/12 18:26:00 IVPB No Longer Active [facility] 01/05/2012 [facility] Protonix 40 mg, 1 tab, Route: PO, Drug form: ECTAB, Before Dinner, Start date: 01/05/12 11:56:00, Duration: 30 day, Stop date: 02/03/12 16:30:00 PO No Longer Active Milan 01/05/2012 [facility] calcium chloride 2,000 mg, 20 mL, Route: IV, Drug form: INJ, ONCE, Start date: 01/05/12 8:26:00, Stop date: 01/05/12 8:26:00 IV No Longer Active Rajesh 01/04 [facility] carvedilol 6.25 mg, 2 tab, Rou te: PO, Drug form: TAB, Q12H, Start date: 01/04/12 21:00:00, Duration: 30 day, Stop date: 02/03/12 9:00:00 PO No Longer Active Rajesh 01/05/2012 [facility] lactulose 10 g/15 mL oral syrup 20 gm, 30 mL, Route: PO, Drug Form: SYRP, Daily, PRN Constipation, Start date: 01/04/12 16:24:00, Duration: 30 day, Stop date: 02/03/12 16:23:00 PO No Longer Active Milan 01/04/2012 [facility] Lyrica 150 mg, 2 cap, Route: P O, Drug form: CAP, TID, Start date: 01/04/12 13:00:00, Duration: 30 day, Stop date: 02/03/12 9:00:00 PO No Longer Active Milan [address] [place] [address] Kayexalate 15 gm, 60 mL, Route : PO, Drug form: SUSP, ONCE, Start date: 01/04/12 12:20:00, Stop date: 01/04/12 12:20:00 PO No Longer Active Milan 01/04/2012 [facility] calcium gluconate 2,000 mg, 20 mL, Route: IV, ONCE, Start date: 01/03/12 20:26:00, Stop date: 01/03/12 20:26:00 IV No Longer Active Elsy 01/04/2012 [facility] Kayexalate 20 gm, 80 mL, Route : PO, Drug form: SUSP, ONCE, Start date: 01/03/12 20:26:00, Stop date: 01/03/12 20:26:00 PO No Longer Active Elsy 01/04/2012 [facility] Sodium Chloride 0.9% IV 1,000 mL 1,000 mL, Rate: 100 ml/hr, Infuse over: 10 hr, Route: IV, Dosing Weight 100.227 kg, Total Volume: 1,000, Start date: 01/03/12 20:25:00, Duration: 30 day, Stop date: 02/02/12 20:24:00 IV No Longer Active Rajesh 01/04/2012 [facility] acetaminophen-hydrocodone 325 mg-10 mg oral tablet 1 tab, Route: PO, Drug Form: TAB, ONCE, Start date: 01/02/12 12:40:00, Stop date: 01/02/12 12:40:00 PO No Longer Active Abdulla 01/02/2012 [facility] Fluvirin [id number] 0.5 mL, Rou te: IM, Drug Form: SUSP, Start date: 01/02/12 9:00:00, Stop date: 01/02/12 9:00:00 Inactive SYSTEM 01/02/2012 [facility] calcium gluconate 2,000 mg, 20 mL, Route: IV, ONCE, Start date: 01/01/12 11:00:00, Stop date: 01/01/12 11:00:00 IV No Longer Active Mena 01/01/2012 [facility] methadone 2.5 mg, 2.5 mL, Rout e: PO, Drug form: SOLN, BID, Start date: 01/01/12 9:00:00, Duration: 30 day, Stop date: 01/30/12 17:00:00 PO No Longer Active Aliya 01/01/2012 [facility] losartan 100 mg, 2 tab, Route: PO, Drug form: TAB, Daily, Start date: 01/01/12 9:00:00, Duration: 30 day, Stop date: 01/30/12 9:00:00 PO No Longer Active Mena 01/01/2012 [facility] Levemir 20 unit, 0.2 mL, Route : SUB-Q, Drug form: INJ, Daily, Start date: 01/01/12 9:00:00, Duration: 30 day, Stop date: 01/30/12 9:00:00 SUB-Q No Longer Active Mougouris 01/01/2012 [facility] furosemide 40 mg oral tablet 4 0 mg, 1 tab, Route: PO, Drug form: TAB, Daily, Start date: 01/01/12 9:00:00, Duration: 30 day, Stop date: 01/30/12 9:00:00 PO No Longer Active Rajesh 01/01/2012 [facility] diltiazem 240 mg, 1 cap, Route : PO, Drug form: ERCAP, Daily, Start date: 01/01/12 9:00:00, Duration: 30 day, Stop date: 01/30/12 9:00:00 PO No Longer Active Mougouris 01/01/2012 [facility] Sodium Chloride 0.45% IV 1,000 mL 1,000 mL, Rate: 75 ml/hr, Infuse over: 13.3 hr, Route: IV, Total Volume: 1,000, Start date: 12/31/11 21:09:00, Duration: 30 day, Stop date: 01/30/12 21:08:00 IV No Longer Active Cardenas 01/01/2012 [facility] Levemir 40 unit, 0.4 mL, Route : SUB-Q, Drug form: INJ, Bedtime, Start date: 12/31/11 21:00:00, Duration: 30 day, Stop date: 01/29/12 21:00:00 SUB-Q No Longer Active Sarker 01/01/2012 [facility] Lyrica 150 mg, 2 cap, Route: P O, Drug form: CAP, BID, Start date: 12/31/11 21:00:00, Duration: 30 day, Stop date: 01/30/12 17:00:00 PO No Longer Active Milan 012 [facility] metFORmin 1000 mg oral tablet, extended release 1,000 mg, 2 tab, Route: PO, Drug form: ERTAB, BID, Start date: 12/31/11 17:00:00, Duration: 30 day, Stop date: 01/30/12 9:00:00 PO No Longer Active Milan 12/31/2011 [facility] pravastatin 80 mg, 4 tab, Rout e: PO, Drug form: TAB, Daily, Start date: 12/31/11 17:00:00, Duration: 30 day, Stop date: 01/29/12 17:00:00 PO No Longer Active Mougouris 12/31/2011 [facility] gemfibrozil 600 mg, 1 tab, Rou te: PO, Drug form: TAB, BID, Start date: 12/31/11 17:00:00, Duration: 30 day, Stop date: 01/30/12 9:00:00 PO No Longer Active Mougouris 12/31/2011 [facility] clonidine 0.2 mg oral tablet 0 .2 mg, 1 tab, Route: PO, Drug form: TAB, BID, Start date: 12/31/11 17:00:00, Duration: 30 day, Stop date: 01/30/12 9:00:00 PO No Longer Active Mougouris 12/31/2011 [facility] Neurontin 300 mg, 1 cap, Route : PO, Drug form: CAP, Q8H, Start date: 12/31/11 16:00:00, Duration: 30 day, Stop date: 01/30/12 8:00:00 PO No Longer Active Hamid 12/30 [facility] hydrALAZINE 25 mg oral tablet 25 mg, 1 tab, Route: PO, Drug form: TAB, Q6H, PRN Elevated BP, Start date: 12/31/11 13:15:00, Duration: 30 day, Stop date: 01/30/12 13:14:00, systolic blood pressure greater than 180 mm Hg. PO No Longer Active Rajesh 12/31/2011 [facility] enoxaparin 40 mg, 0.4 mL, Rout e: SUB-Q, Drug form: INJ, [id number], Start date: 12/31/11 12:00:00, Duration: 30 day, Stop date: 01/30/12 0:00:00 SUB-Q No Longer Active Milan 12/31/2011 [facility] hydromorphone 1 mg, 1 mL, Rout e: IVP, Drug form: SOLN, Q3H, PRN Pain, Start date: 12/31/11 11:55:00, Stop date: 01/30/12 11:54:00 IVP No Longer Active Cardenas 2011 [facility] hydromorphone 2 mg, 2 mL, Rout e: IVP, Drug form: SOLN, Q3H, PRN Pain, Start date: 12/31/11 11:53:00, Duration: 30 day, Stop date: 01/30/12 11:52:00 IVP No Longer Active Mougouris 12/31/2011 [facility] insulin aspart 2 unit, 0.02 mL , Route: SUB-Q, Drug form: SOLN, TID-Before Meals, PRN Blood Glucose Results, Start date: 12/31/11 11:30:00, Duration: 30 day, Stop date: 01/30/12 11:29:00 SUB-Q No Longer Active Rajesh 12/31/2011 [facility] Dextrose 50% Syringe 12.5 gm, 25 mL, Route: IVP, Drug Form: INJ, PRN, PRN Blood Glucose Results, Start date: 12/31/11 11:30:00, Duration: 30 day, Stop date: 01/30/12 12:29:00 IVP No Longer Active Mougouris 12/31/2011 [facility] glucagon 1 mg, Route: IM, Drug form: PDR/INJ, PRN, PRN Blood Glucose Results, Start date: 12/31/11 11:30:00, Duration: 30 day, Stop date: 01/30/12 12:29:00 IM No Longer Active Mougouris 12/31/2011 [facility] Phenergan 12.5 mg, 0.5 mL, Rou te: IVPB, Q4H, PRN Nausea & Vomiting, Start date: 12/31/11 11:29:00, Duration: 30 day, Stop date: 01/30/12 11:28:00 IVPB No Longer Active Mougouris 12/31/2011 [facility] Saline Flush 0.9% 5 ml, Route: IVP, Drug Form: INJ, PRN, PRN Line Flush, Start date: 12/31/11 11:21:00, Duration: 30 day, Stop date: 01/30/12 12:20:00 IVP No Longer Active Mougouris 12/31/2011 [facility] docusate 100 mg, 1 cap, Route: PO, Drug form: CAP, BID, PRN Constipation, Start date: 12/31/11 11:21:00, Duration: 30 day, Stop date: 01/30/12 11:20:00 PO No Longer Active Mougouris 12/31/2011 [facility] acetaminophen 650 mg, 2 tab, R oute: PO, Drug form: TAB, Q4H, PRN Pain/Fever, Start date: 12/31/11 11:21:00, Duration: 30 day, Stop date: 01/30/12 11:20:00 PO No Longer Active Mougouris 12/31/2011 [facility] temazepam 15 mg, 1 cap, Route: PO, Drug form: CAP, Bedtime, PRN Insomnia, Start date: 12/31/11 11:21:00, Duration: 30 day, Stop date: 01/30/12 11:20:00 PO No Longer Active Mougouris 12/31/2011 [facility] ondansetron 4 mg, 2 mL, Route: IVP, Drug form: INJ, Q6H, PRN Nausea & Vomiting, Start date: 12/31/11 11:21:00, Duration: 30 day, Stop date: 01/30/12 11:20:00 IVP No Longer Active Mougouris 12/31/2011 [facility] Levemir 100 units/mL subcutaneous solution 40 units, SUB-Q, Bedtime, Substitution Allowed SUB-Q Active Moug ouris 12/31/2011 [facility] influenza virus vaccine, inactivated 0.5 mL, Route: IM, Drug Form: SUSP, Start date: 12/31/11 9:00:00, Stop date: 12/31/11 9:00:00 No Longer Active SYSTEM 05/2012 [facility] Kayexalate 15 gm, 60 mL, Route : PO, Drug form: SUSP, QID, Start date: 12/31/11 9:00:00, Duration: 30 day, Stop date: 01/29/12 21:00:00 PO No Longer Active Rajesh 12/31/2011 [facility] Dilaudid 0.5 mg, 0.5 mL, Route : IV, Drug form: SOLN, Q3H, PRN Pain, 0.5-1mg every 3 hours prn for pain, Start date: 12/31/11 7:55:00, Duration: 30 day, Stop date: 01/30/12 7:54:00 IV No Longer Active Mougouris 12/31/2011 [facility] gabapentin 300 mg oral capsule 300 mg, 1 cap, PO, BID, Substitution Allowed PO Active 12/31/2011 [facility] morphine Sulfate 4 mg, Route: IV, ONCE, Start date: 12/31/11 3:54:00, Stop date: 12/31/11 3:54:00 IV No Longer Active Stepan 12/31/2011 [facility] atropine 0.5 mg, 5 mL, Route: IVP, Drug form: INJ, PRN, PRN Bradycardia, Start date: 12/31/11 3:50:00, Duration: 30 day, Stop date: 01/30/12 4:49:00 IVP No Longer Active Jaspreet 12/31/2011 [facility] nitroglycerin 0.4 mg sublingual tablet 0.4 mg, 1 tab, Route: SL, Drug form: TAB, Q5Min, PRN Chest Pain, Start date: 12/31/11 3:50:00, Duration: 30 day, Stop date: 01/30/12 4:49:00 SL No Longer Active Jaspreet 12/31/2011 [facility] Sodium Chloride 0.9% IV 1,000 mL 1,000 mL, Rate: 125 ml/hr, Infuse over: 8 hr, Route: IV, Total Volume: 1,000, Start date: 12/31/11 3:45:00, Duration: 30 day, Stop date: 01/30/12 3:44:00 IV No Longer Active Jaspreet 12/31/2011 [facility] Saline Flush 0.9% 5 ml, Route: IVP, Drug Form: INJ, PRN, PRN Line Flush, Start date: 12/31/11 3:45:00, Duration: 30 day, Stop date: 01/30/12 4:44:00 IVP No Longer Active Mougouris 12/31/2011 [facility] ondansetron 4 mg, 2 mL, Route: IVP, Drug form: INJ, Q6H, PRN Nausea & Vomiting, Start date: 12/31/11 3:45:00, Duration: 30 day, Stop date: 01/30/12 3:44:00 IVP No Longer Active Jaspreet 12/31/2011 [facility] morphine Sulfate 4 mg, 2 mL, R oute: IVP, Drug form: INJ, Q4H, PRN Pain Score 7-10, Start date: 12/31/11 3:45:00, Duration: 30 day, Stop date: 01/30/12 3:44:00 IVP No Longer Active Mauro 12/31/2011 [facility] Zofran 4 mg, Route: IVP, Drug form: INJ, ONCE, Start date: 12/31/11 2:33:00, Stop date: 12/31/11 2:33:00 IVP No Longer Active Stepan 12/31/2011 [facility] NovoLog 100 units/mL subcutaneous solution SUB-Q, Substitution Allowed SUB-Q Active 12/31/2011 [facility] Levemir 100 units/mL subcutaneous solution 20 units, SUB-Q, Daily, Substitution Allowed SUB-Q Active Erlin 12/31/2011 [facility] gabapentin 300 mg oral capsule 300 mg, 1 cap, PO, BID, Substitution Allowed PO Active 12/31/2011 [facility] metFORmin 1000 mg oral tablet, extended release 1,000 mg, 1 tab, PO, BID, 60 tab, Substitution Allowed, ERTAB PO Active 12/31/2011 [facility] furosemide 40 mg oral tablet 4 0 mg, 1 tab, PO, Daily, 30 tab, Substitution Allowed, TAB PO Active ug 12/31/2011 [facility] pravastatin 80 mg oral tablet 80 mg, 1 tab, PO, Daily, 30 tab, Substitution Allowed, TAB PO Active 12/31/2011 [facility] losartan 100 mg oral tablet 10 0 mg, 1 tab, PO, Daily, 30 tab, Substitution Allowed, TAB PO No Longer Active 12/31/2011 [facility] gemfibrozil 600 mg oral tablet 600 mg, 1 tab, PO, BID, 60 tab, Substitution Allowed, TAB PO Active 12/31/2011 [facility] diltiazem 240 mg/24 hours oral tablet, extended releas e 240 mg, 1 tab, PO, Daily, 30 tab, Substitution Allowed, ERTAB PO Active 12/31/2011 [facility] clonidine 0.2 mg oral tablet 0 .2 mg, PO, BID, 60 tab, Substitution Allowed PO Active ug12/31/2011 [facility] morphine Sulfate 4 mg, Route: IVP, ONCE, Start date: 12/30/11 23:48:00, Stop date: 12/30/11 23:48:00 IVP No Longer Active Stepan 12/31/2011 [facility] sodium bicarbonate 8.4% 50 mEq , 50 mL, Route: IVP, Drug Form: INJ, ONCE, STAT, Start date: 12/30/11 22:48:00, Stop date: 12/30/11 22:48:00 IVP No Longer Active Stepan 12/31/2011 [facility] Insulin regular 10 unit, 0.1 m L, Route: IVP, Drug form: INJ, ONCE, Priority: STAT, Start date: 12/30/11 22:47:00, Stop date: 12/30/11 22:47:00 IVP No Longer Active Stepan 12/31/2011 [facility] d50 syringe Route: IVP, Drug F orm: INJ, ONCE, Start date: 12/30/11 22:46:00, Stop date: 12/30/11 22:46:00 IVP No Longer Active Stepan 12/31/2011 [facility] Kayexalate 30 gm, 120 mL, Rout e: PO, Drug form: SUSP, ONCE, Start date: 12/30/11 22:45:00, Stop date: 12/30/11 22:45:00 PO No Longer Active Stepan 12/31/2011 [facility] morphine Sulfate 4 mg, Route: IVP, ONCE, Priority: STAT, Start date: 12/30/11 20:44:00, Stop date: 12/30/11 20:44:00 IVP No Longer Active Stepan 12/31/2011 [facility] Zofran 4 mg, Route: IVP, Drug form: INJ, ONCE, Priority: STAT, Start date: 12/30/11 20:44:00, Stop date: 12/30/11 20:44:00 IVP No Longer Active Stepan 12/31/2011 [facility] Allergies, Adverse Reactions, Alerts Substance Category Reaction Severity Reaction type Status Date Reported Comments Source NIFEdipine Assertion Drug allergy Active [facility] Immunizations Immunization Date Given Site Status Last Updated Comments Source pneumococcal 13-valent vaccine 06/06/2016 Right deltoid completed Carol Azar [facility] influenza virus vaccine, inactivated<sup>1</sup> 08/02/2014 completed Rani Admin Note: received a t karie johansen [facility] [place] influenza virus vaccine, inactivated 08/10/2013 Right deltoid completed Moo [facility] [place] influenza virus vaccine, inactivated 08/10/2013 completed H ail [facility] Hx influenza vaccine-unspecified 11/03/2012 completed U raquel [facility] Hx influenza vaccine-unspecified 11/03/2012 completed U raquel [facility] Hx pneumococcal vaccine 2011 completed Vee garcía [facility] [place] H[place] pneumococcal vaccine 2011 completed Vee garcía [facility] [place] influenza virus vaccine, inactivated 01/02/2012 Not Given V each [facility] influenza virus vaccine, inactivated 01/01/2012 Right deltoid completed Samir [facility] influenza virus vaccine, inactivated 01/01/2012 completed V each [facility] Results Order Name Results Value Reference Range Date Interpretation Comments Source CHEM PANEL Calcium Lvl 7.7 8.5 - 10.5 06/10/2016 [facility] CHEM PANEL Chloride Lvl 104 95 - 109 06/10/2016 [facility] CHEM PANEL CO2 27 24 - 32 06/10/2016 [facility] CHEM PANEL Potassium Lvl 4.1 3.5 - 5.1 06/10/2016 [facility] CHEM PANEL Sodium Lvl 139 135 - 145 06/10/2016 [facility] CHEM PANEL BUN 23 7 - 22 06/10/2016 [facility] CHEM [facility] Creatinine Lvl 6.24 0.50 - 1.40 06/10/2016 [facility] CHEM [facility] Glucose Lvl 160 70 - 99 06/10/2016 [facility] CHEM PANEL eGFR 7 06/10/2016 Result Comment: [...] should be multiplied by the estimated BMI. [facility] CHEM PANEL AGAP 12.1 10.0 - 20.0 06/10/2016 [facility] CHEM PANEL Calcium Lvl 7.6 8.5 - 10.5 06/09/2016 [facility] CHEM PANEL Chloride Lvl 100 95 - 109 06/09/2016 [facility] CHEM PANEL Sodium Lvl 136 135 - 145 06/09/2016 [facility] CHEM PANEL CO2 25 24 - 32 06/09/2016 [facility] CHEM PANEL Potassium Lvl 4.3 3.5 - 5.1 06/09/2016 [facility] CHEM PANEL Creatinine Lvl 4.99 0.50 - 1.40 06/09/2016 [facility] CHEM PANEL BUN 15 7 - 22 06/09/2016 [facility] CHEM PANEL Glucose Lvl 139 70 - 99 06/09/2016 [facility] CHEM PANEL AGAP 15.3 10.0 - 20.0 06/09/2016 [facility] CHEM PANEL eGFR 9 06/09/2016 Result Comment: [...] should be multiplied by the estimated BMI. [facility] HEMATOLOGY Hct 27.4 36.0 - 48.0 06/09/2016 [facility] HEMATOLOGY RDW 17.6 11.5 - 14.5 06/09/2016 [facility] MCHC 32.5 32.0 - 36.0 06/09/2016 [facility] MCH 31.3 27.0 - 31.0 06/09/2016 [facility] HEMATOLOGY MCV 96.2 80.0 - 98.0 06/09/2016 [facility] HEMATOLOGY MPV 7.4 7.4 - 10.4 06/09/2016 [facility] HEMATOLOGY Platelet 209 133 - 450 06/09/2016 [facility] HEMATOLOGY WBC 7.2 3.7 - 10.4 06/09/2016 [facility] Hgb 8.9 12.0 - 16.0 06/09/2016 [facility] RBC 2.85 4.20 - 5.40 06/09/2016 [facility] HEMATOLOGY Basophils 0.6 0.0 - 1.0 06/09/2016 [facility] HEMATOLOGY Eosinophils 3.7 0.0 - 4.0 06/09/2016 [facility] HEMATOLOGY Monocytes 6.4 2.0 - 12.0 06/09/2016 [facility] HEMATOLOGY Lymphocytes # 0.7 1.0 - 5.5 06/09/2016 [facility] HEMATOLOGY Segs-Bands # 5.7 1.5 - 8.1 06/09/2016 [facility] HEMATOLOGY Eosinophils # 0.3 0.0 - 0.5 06/09/2016 [facility] HEMATOLOGY Monocytes # 0.5 0.0 - 0.8 06/09/2016 [facility] HEMATOLOGY Segs 79.6 45.0 - 75.0 06/09/2016 [facility] HEMATOLOGY Lymphocytes 9.7 20.0 - 40.0 06/09/2016 [facility] IMMUNOLOGY Hep Bs Ag Negat sue *NA* (06/05/16 10:32 PM) Negative 06/06/2016 [facility] CARDIAC ENZYMES BNP 68 <=100 pg/mL 06/05/2016 [facility] CARDIAC ENZYMES CK MB 1.3 0.5 - 3.6 06/05/2016 [facility] CARDIAC ENZYMES Troponin-I <0.015 ng/mL 0.00 - 0.40 06/05/2016 [facility] CARDIAC ENZYMES Total CK 38 12 - 191 06/05/2016 [facility] CARDIAC ENZYMES CK MB Index 3.4 0.0 - 2.5 06/05/2016 [facility] CHEM PANEL eGFR 6 06/05/2016 Result Comment: [...] should be multiplied by the estimated BMI. [facility] CHEM PANEL AST 12 0 - 37 06/05/2016 [facility] CHEM PANEL Albumin Lvl 3.1 3.5 - [...] Lipase Lvl 353 73 - 393 06/05/2016 [facility] HEMATOLOGY MPV 7.5 7.4 - 10.4 06/05/2016 [facility] HEMATOLOGY Platelet 201 133 - 450 06/05/2016 [facility] HEMATOLOGY MCH 31.7 27.0 - 31.0 06/05/2016 [facility] HEMATOLOGY RDW 16.3 11.5 - 14.5 06/05/2016 [facility] HEMATOLOGY MCHC 33.3 32.0 - 36.0 06/05/2016 [facility] HEMATOLOGY RBC 3.02 4.20 - 5.40 06/05/2016 [facility] MCV 95.3 80.0 - 98.0 06/05/2016 [facility] Hgb 9.6 12.0 - 16.0 06/05/2016 [facility] Hct 28.8 36.0 - 48.0 06/05/2016 [facility] WBC 10.0 3.7 - 10.4 06/05/2016 [facility] Monocytes # 0.7 0.0 - 0.8 06/05/2016 [facility] RBC Morph Nicolasa l (06/05/16 7:05 AM) 06/05/2016 [facility] Plt Morph Nicolasa l (06/05/16 7:05 AM) 06/05/2016 [facility] Segs 66.4 45.0 - 75.0 06/05/2016 [facility] Basophils 0.5 0.0 - 1.0 06/05/2016 [facility] Segs-Bands # 6.7 1.5 - 8.1 06/05/2016 [facility] Monocytes 6.6 2.0 - 12.0 06/05/2016 [facility] Eosinophils 3.1 0.0 - 4.0 06/05/2016 [facility] Lymphocytes 23.4 20.0 - 40.0 06/05/2016 [facility] Eosinophils # 0.3 0.0 - 0.5 06/05/2016 [facility] Lymphocytes # 2.3 1.0 - 5.5 06/05/2016 [facility] CHEM PANEL eGFR 5 04/22/2015 <sup>1</sup>Result Comment: [...] should be multiplied by the estimated BMI. [facility] CHEM PANEL CO2 24 24 - 32 04/22/2015 [facility] CHEM PANEL Creatinine Lvl 8.8 0.5 - 1.4 04/22/2015 [facility] CHEM PANEL Calcium Lvl 8.2 8.5 - 10.5 04/22/2015 [facility] CHEM PANEL AGAP 17.2 10.0 - 20.0 04/22/2015 [facility] CHEM PANEL BUN 68 7 - 22 04/22/2015 [facility] CHEM PANEL Glucose Lvl 118 70 - 99 04/22/2015 <sup>4</sup>Interpretive Data: Adult ref erence range values reflect the clinical guidelines
of the [place] [employer]. [facility] CHEM PANEL Sodium Lvl 134 135 - 145 04/22/2015 [facility] CHEM PANEL Potassium Lvl 5.2 3.5 - 5.1 04/22/2015 [facility] CHEM PANEL Chloride Lvl 98 95 - 109 04/22/2015 [facility] HEMATOLOGY MPV 7.6 7.4 - 10.4 04/22/2015 [facility] HEMATOLOGY MCV 98.5 80.0 - 98.0 04/22/2015 [facility] HEMATOLOGY Platelet 158 133 - 450 04/22/2015 [facility] HEMATOLOGY RDW 19.1 11.5 - 14.5 04/22/2015 [facility] MCHC 33.3 32.0 - 36.0 04/22/2015 [facility] HEMATOLOGY MCH 32.8 27.0 - 31.0 04/22/2015 [facility] HEMATOLOGY Hct 24.7 36.0 - 48.0 04/22/2015 [facility] Hgb 8.2 12.0 - 16.0 04/22/2015 [facility] HEMATOLOGY RBC 2.51 4.20 - 5.40 04/22/2015 [facility] HEMATOLOGY WBC 6.8 3.7 - 10.4 04/22/2015 [facility] HEMATOLOGY Lymphocytes 19.5 20.0 - 40.0 04/22/2015 [facility] HEMATOLOGY Monocytes 7.8 2.0 - 12.0 04/22/2015 [facility] HEMATOLOGY Segs-Bands # 4.7 1.5 - 8.1 04/22/2015 [facility] HEMATOLOGY Basophils 0.3 0.0 - 1.0 04/22/2015 [facility] HEMATOLOGY Eosinophils 4.4 0.0 - 4.0 04/22/2015 [facility] HEMATOLOGY Lymphocytes # 1.3 1.0 - 5.5 04/22/2015 [facility] HEMATOLOGY Monocytes # 0.5 0.0 - 0.8 04/22/2015 [facility] HEMATOLOGY Eosinophils # 0.3 0.0 - 0.5 04/22/2015 [facility] HEMATOLOGY Segs 68.0 45.0 - 75.0 04/22/2015 [facility] ELECTROLYTES AGAP 22.1 10.0 - 20.0 04/17/2015 [facility] ELECTROLYTES eGFR 6 04/17/2015 <sup>2</sup>Result Comment: The [...] should be multiplied by the estimated BMI. [facility] ELECTROLYTES BUN 42 7 - 22 04/17/2015 [facility] Glucose Lvl 86 70 - 99 04/17/2015 <sup>5</sup>Interpretive Data: Adult ref erence range values reflect the clinical guidelines
of the [place] [employer]. [facility] ELECTROLYTES Calcium Lvl 8.2 8.5 - 10.5 04/17/2015 [facility] ELECTROLYTES Creatinine Lvl 7.6 0.5 - 1.4 04/17/2015 [facility] ELECTROLYTES CO2 25 24 - 32 04/17/2015 [facility] ELECTROLYTES Potassium Lvl 5.1 3.5 - 5.1 04/17/2015 [facility] ELECTROLYTES Sodium Lvl 132 135 - 145 04/17/2015 [facility] ELECTROLYTES Chloride Lvl 90 95 - 109 04/17/2015 [facility] MPV 8.6 7.4 - 10.4 04/17/2015 [facility] RBC 3.11 4.20 - 5.40 04/17/2015 [facility] HEMATOLOGY Hgb 10.2 12.0 - 16.0 04/17/2015 [facility] HEMATOLOGY MCHC 33.4 32.0 - 36.0 04/17/2015 [facility] HEMATOLOGY MCH 32.9 27.0 - 31.0 04/17/2015 [facility] HEMATOLOGY Hct 30.6 36.0 - 48.0 04/17/2015 [facility] HEMATOLOGY MCV 98.3 80.0 - 98.0 04/17/2015 [facility] HEMATOLOGY RDW 20.0 11.5 - 14.5 04/17/2015 [facility] HEMATOLOGY Platelet 188 133 - 450 04/17/2015 [facility] HEMATOLOGY WBC 9.7 3.7 - 10.4 04/17/2015 [facility] HEMATOLOGY Eosinophils 3.0 0.0 - 4.0 04/17/2015 [facility] HEMATOLOGY Basophils 0.6 0.0 - 1.0 04/17/2015 [facility] HEMATOLOGY Segs-Bands # 6.5 1.5 - 8.1 04/17/2015 [facility] HEMATOLOGY RBC Morph Nicolasa l (04/17/15 4:33 AM) 04/17/2015 [facility] HEMATOLOGY Monocytes 7.4 2.0 - 12.0 04/17/2015 [facility] HEMATOLOGY Monocytes # 0.7 0.0 - 0.8 04/17/2015 [facility] HEMATOLOGY Eosinophils # 0.3 0.0 - 0.5 04/17/2015 [facility] Lymphocytes # 2.2 1.0 - 5.5 04/17/2015 [facility] Plt Morph Nicolasa l (04/17/15 4:33 AM) 04/17/2015 [facility] HEMATOLOGY Segs 66.5 45.0 - 75.0 04/17/2015 [facility] HEMATOLOGY Lymphocytes 22.5 20.0 - 40.0 04/17/2015 [facility] HEMATOLOGY Basophils # 0.1 0.0 - 0.2 04/17/2015 [facility] HEMATOLOGY Segs-Bands # 4.4 1.5 - 8.1 04/16/2015 [facility] HEMATOLOGY Basophils 0.5 0.0 - 1.0 04/16/2015 [facility] HEMATOLOGY Monocytes # 0.5 0.0 - 0.8 04/16/2015 [facility] HEMATOLOGY Eosinophils # 0.2 0.0 - 0.5 04/16/2015 [facility] HEMATOLOGY Lymphocytes # 1.7 1.0 - 5.5 04/16/2015 [facility] HEMATOLOGY Eosinophils 3.5 0.0 - 4.0 04/16/2015 [facility] Monocytes 7.2 2.0 - 12.0 04/16/2015 [facility] Segs 64.1 45.0 - 75.0 04/16/2015 [facility] Lymphocytes 24.7 20.0 - 40.0 04/16/2015 [facility] MPV 7.4 7.4 - 10.4 04/16/2015 [facility] Platelet 265 133 - 450 04/16/2015 [facility] RDW 20.3 11.5 - 14.5 04/16/2015 [facility] MCHC 32.9 32.0 - 36.0 04/16/2015 [facility] MCV 99.0 80.0 - 98.0 04/16/2015 [facility] MCH 32.6 27.0 - 31.0 04/16/2015 [facility] Hct 32.3 36.0 - 48.0 04/16/2015 [facility] Hgb 10.6 12.0 - 16.0 04/16/2015 [facility] RBC 3.26 4.20 - 5.40 04/16/2015 [facility] WBC 6.8 3.7 - 10.4 04/16/2015 [facility] Sed Rate 53 0 - 20 04/16/2015 [facility] IMMUNOLOGY C-REACTIVE PROTEIN 11.1 <=2.9 mg/L 04/16/2015 [facility] CHEM PANEL Lipase Lvl 258 73 - 393 04/15/2015 [facility] CHEM PANEL eGFR 12 04/15/2015 <sup>3</sup>Result Comment: [...] should be multiplied by the estimated BMI. [facility] CHEM PANEL Bili Total 0.4 0.2 - 1.3 04/15/2015 [facility] CHEM PANEL AST 16 0 - 37 04/15/2015 [facility] CHEM PANEL Alk Phos 130 39 - 136 04/15/2015 [facility] CHEM PANEL Glucose Lvl 84 70 - 99 04/15/2015 <sup>6</sup>Interpretive Data: Adult ref erence range values reflect the clinical guidelines
of the [place] [employer]. [facility] CHEM PANEL Albumin Lvl 3.9 3.5 - 5.0 04/15/2015 [facility] CHEM PANEL Total Protein 8.7 6.4 - 8.4 04/15/2015 [facility] CHEM PANEL BUN 17 7 - 22 04/15/2015 [facility] CHEM PANEL ALT 29 0 - 65 04/15/2015 [facility] CHEM PANEL Creatinine Lvl 4.0 0.5 - 1.4 04/15/2015 [facility] CHEM PANEL CO2 36 24 - 32 04/15/2015 [facility] CHEM PANEL Calcium Lvl 8.5 8.5 - 10.5 04/15/2015 [facility] CHEM PANEL Chloride Lvl 93 95 - 109 04/15/2015 [facility] CHEM PANEL Potassium Lvl 4.2 3.5 - 5.1 04/15/2015 [facility] CHEM PANEL Sodium Lvl 135 135 - 145 04/15/2015 [facility] CHEM PANEL AGAP 10.2 10.0 - 20.0 04/15/2015 [facility] CHEM PANEL B/C Ratio 4 6 - 25 04/15/2015 [facility] CHEM PANEL Globulin 4.8 2.0 - 4.0 04/15/2015 [facility] CHEM PANEL A/G Ratio 0.8 0.7 - 1.6 04/15/2015 [facility] HEMATOLOGY PT 12.6 12.0 - 14.7 04/15/2015 [facility] HEMATOLOGY PTT 36.1 22.9 - 35.8 04/15/2015 <sup>8</sup>Interpretive Data: Heparin T herapeutic Range: 57 - 92 Seconds [facility] HEMATOLOGY INR 0.94 0.85 - 1.17 04/15/2015 <sup>7</sup>Interpretive Data: RECOMMEND ED RANGES FOR PROTIME INR:
2.0-3.0 for most medical and surgical thromboembolic states.
2.5-3.5 for artificial heart valves and recurrent embolism.

INR SHOULD BE USED ONLY FOR PATIENTS ON STABLE ANTICOAGULANT THERAPY. [facility] IMMUNOLOGY Hep Bs Ag Negat sue *NA* (04/15/15 1:40 PM) Negative 04/15/2015 [facility] CHEM PANEL Lipase Lvl 212 73 - 393 01/11/2015 [facility] CHEM PANEL eGFR 6 01/11/2015 <sup>1</sup>Result Comment: [...] should be multiplied by the estimated BMI. [facility] CHEM PANEL Alk Phos 141 39 - 136 01/11/2015 [facility] CHEM PANEL AST 9 0 - 37 01/11/2015 [facility] CHEM PANEL Albumin Lvl 3.5 3.5 - 5.0 01/11/2015 [facility] CHEM PANEL ALT 26 0 - 65 01/11/2015 [facility] CHEM PANEL Total Protein 7.3 6.4 - 8.4 01/11/2015 [facility] CHEM PANEL Glucose Lvl 93 70 - 99 01/11/2015 <sup>2</sup>Interpretive Data: Adult ref erence range values reflect the clinical guidelines
of the [place] [employer]. [facility] CHEM PANEL BUN 57 7 - 22 01/11/2015 [facility] CHEM PANEL Bili Total 0.5 0.2 - 1.3 01/11/2015 [facility] CHEM PANEL Creatinine Lvl 7.1 0.5 - 1.4 01/11/2015 [facility] CHEM PANEL CO2 24 24 - 32 01/11/2015 [facility] CHEM PANEL Calcium Lvl 7.9 8.5 - 10.5 01/11/2015 [facility] CHEM PANEL Potassium Lvl 4.9 3.5 - 5.1 01/11/2015 [facility] CHEM PANEL Sodium Lvl 140 135 - 145 01/11/2015 [facility] CHEM PANEL Chloride Lvl 102 95 - 109 01/11/2015 [facility] CHEM PANEL A/G Ratio 0.9 0.7 - 1.6 01/11/2015 [facility] CHEM PANEL Globulin 3.8 2.0 - 4.0 01/11/2015 [facility] CHEM PANEL AGAP 18.9 10.0 - 20.0 01/11/2015 [facility] CHEM PANEL B/C Ratio 8 6 - 25 01/11/2015 [facility] HEMATOLOGY MCH 32.0 27.0 - 31.0 01/11/2015 [facility] HEMATOLOGY MCHC 33.0 32.0 - 36.0 01/11/2015 [facility] HEMATOLOGY MCV 97.1 80.0 - 98.0 01/11/2015 [facility] HEMATOLOGY RDW 16.3 11.5 - 14.5 01/11/2015 [facility] HEMATOLOGY Hct 32.3 36.0 - 48.0 01/11/2015 [facility] [facility] HEMATOLOGY Platelet 185 133 - 450 01/11/2015 [facility] HEMATOLOGY MPV 7.1 7.4 - 10.4 01/11/2015 [facility] HEMATOLOGY Hgb 10.7 12.0 - 16.0 01/11/2015 [facility] HEMATOLOGY RBC 3.33 4.20 - 5.40 01/11/2015 [facility] HEMATOLOGY WBC 6.4 3.7 - 10.4 01/11/2015 [facility] HEMATOLOGY Eosinophils # 0.4 0.0 - 0.5 01/11/2015 [facility] HEMATOLOGY Monocytes # 0.5 0.0 - 0.8 01/11/2015 [facility] HEMATOLOGY Lymphocytes # 1.4 1.0 - 5.5 01/11/2015 [facility] HEMATOLOGY Monocytes 8.3 2.0 - 12.0 01/11/2015 [facility] HEMATOLOGY Eosinophils 5.8 0.0 - 4.0 01/11/2015 [facility] HEMATOLOGY Segs-Bands # 4.0 1.5 - 8.1 01/11/2015 [facility] HEMATOLOGY Basophils 0.3 0.0 - 1.0 01/11/2015 [facility] HEMATOLOGY Lymphocytes 22.4 20.0 - 40.0 01/11/2015 [facility] HEMATOLOGY Segs 63.2 45.0 - 75.0 01/11/2015 [facility] REFERENCE LAB RESULTS Test Name HLA TYPING 11/06/2014 [facility] REFERENCE LAB RESULTS HLA Misc Test See Report 20 (11/06/14 1:17 PM) 11/06/2014 <sup>20</sup>Result Comment: Reference lab results scanned in [employer]. Results displayed in [id number] Lab Documents (Imaged) under date/time results were scanned. Report sent for scanning on 11/19/2014. [facility] ANEMIA STUDY Iron 108 30 - 160 11/06/2014 [facility] ANEMIA STUDY TIBC 282 228 - 428 11/06/2014 [facility] ANEMIA STUDY UIBC 174 110 - 370 11/06/2014 [facility] ANEMIA STUDY % [place] 38 12 - 57 11/06/2014 [facility] ANEMIA STUDY Ferritin Lvl 1064 5 - 204 11/06/2014 [facility] BLOOD BANK RESULTS ABO/Rh O POS 11/06/2014 [facility] BLOOD BANK RESULTS ABO/Rh O POS 11/06/2014 [facility] CHEM PANEL Vitamin D, 25-OH, Total 3 3 30 - 100 11/06/2014 <sup>3</sup>Interpretive Data: Reference range is based on recommendations in the Endocrine
Society Clinical Practice Guideline (J Clin Endocrinol Metab
2010;96:6717-2068) [facility] CHEM PANEL Uric Acid 3.5 2.5 - 7.0 11/06/2014 [facility] CHEM PANEL Phosphorus 5.1 2.5 - 4.5 11/06/2014 [facility] CHEM PANEL Magnesium Lvl 2.3 1.8 - 2.4 11/06/2014 [facility] CHEM PANEL eGFR 8 11/06/2014 <sup>1</sup>Result [...] should be multiplied by the estimated BMI. [facility] CHEM PANEL Bili Total 0.4 0.2 - 1.3 11/06/2014 [facility] CHEM PANEL ALT 26 0 - 65 11/06/2014 [facility] CHEM PANEL AST 20 0 - 37 11/06/2014 [facility] CHEM PANEL Alk Phos 179 39 - 136 11/06/2014 [facility] CHEM PANEL Albumin Lvl 4.0 3.5 - 5.0 11/06/2014 [facility] CHEM PANEL Calcium Lvl 8.9 8.5 - 10.5 11/06/2014 [facility] CHEM PANEL CO2 30 24 - 32 11/06/2014 [facility] CHEM PANEL Total Protein 8.2 6.4 - 8.4 11/06/2014 [facility] CHEM PANEL Glucose Lvl 69 70 - 99 11/06/2014 <sup>2</sup>Interpretive Data: Adult ref erence range values reflect the clinical guidelines
of the [place] [employer]. [facility] CHEM PANEL Chloride Lvl 99 95 - 109 11/06/2014 [facility] CHEM PANEL Potassium Lvl 5.2 3.5 - 5.1 11/06/2014 [facility] CHEM PANEL Creatinine Lvl 5.5 0.5 - 1.4 11/06/2014 [facility] CHEM PANEL BUN 45 7 - 22 11/06/2014 [facility] CHEM PANEL Sodium Lvl 137 135 - 145 11/06/2014 [facility] CHEM PANEL A/G Ratio 1.0 0.7 - 1.6 11/06/2014 [facility] CHEM PANEL B/C Ratio 8 6 - 25 11/06/2014 [facility] CHEM PANEL Globulin 4.2 2.0 - 4.0 11/06/2014 [facility] CHEM PANEL AGAP 13.2 10.0 - 20.0 11/06/2014 [facility] DRUG SCREEN Propoxyphn Scr Nega tive (11/06/14 12:07 PM) Negative 11/06/2014 [facility] DRUG SCREEN PCP Scr Nega tive (11/06/14 12:07 PM) Negative 11/06/2014 [facility] DRUG SCREEN Opiate Scr Nega tive (11/06/14 12:07 PM) Negative 11/06/2014 [facility] DRUG SCREEN Methadone Scr Nega tive (11/06/14 12:07 PM) Negative 11/06/2014 [facility] DRUG SCREEN Cutoff Values See Note 4 (11/06/14 12:07 PM) 11/06/2014 <sup>4</sup>Interpretive Brent a: Cutoff (lowest detectable by EIA) values for Serum Drugscreen:
THC and PCP: 1 ng/mL
All others: 20 ng/mL

Cutoff (lowest detectable by GC/MS) value for confirmation:
THC and PCP: 1 ng/mL
Benzodiazepines: 5 ng/ml
All others: 10 ng/ml

Test performed by [email or web address]
[address] [place] [address]
[place], [place] [id number] [place] [address] DRUG SCREEN Lore Scr Nega tive (11/06/14 12:07 PM) Negative 11/06/2014 [facility] DRUG SCREEN Cannab Scr Nega tive (11/06/14 12:07 PM) Negative 11/06/2014 [facility] DRUG SCREEN Benzodiaz Scr Nega tive (11/06/14 12:07 PM) Negative 11/06/2014 [facility] DRUG SCREEN Cocaine Scr Nega tive (11/06/14 12:07 PM) Negative 11/06/2014 [facility] DRUG SCREEN Amph Scr Nega tive (11/06/14 12:07 PM) Negative 11/06/2014 [facility] HEMATOLOGY Monocytes # 0.6 0.0 - 0.8 11/06/2014 [facility] HEMATOLOGY Eosinophils # 0.5 0.0 - 0.5 11/06/2014 [facility] HEMATOLOGY Lymphocytes # 2.0 1.0 - 5.5 11/06/2014 [facility] HEMATOLOGY Segs-Bands # 3.8 1.5 - 8.1 11/06/2014 [facility] HEMATOLOGY Basophils 0.5 0.0 - 1.0 11/06/2014 [facility] HEMATOLOGY Monocytes 8.3 2.0 - 12.0 11/06/2014 [facility] HEMATOLOGY Eosinophils 8.0 0.0 - 4.0 11/06/2014 [facility] HEMATOLOGY Lymphocytes 28.7 20.0 - 40.0 11/06/2014 [facility] HEMATOLOGY Segs 54.5 45.0 - 75.0 11/06/2014 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

INTERPRETATION:
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
mutation and negative (normal) for the C5431K
mutation in the MTHFR gene. Heterozygotes may
[...] enzyme
activity. The "thermolabile" variant C677T [NM
239988.3: c.665C>T (p.A222V)] and A1552I [c.
1286A>C (p.E429A)] occur frequently in the [...] uncertain and is not recommended by The
[employer]
(ACMG) or the [place] [employer]nec[employer] (ACOG) in [...] and
prothrombin gene mutations.

The C677T and B1496B variants are detected by
amplification of the [...] Health care providers, please
contact your local [facility] genetic
counselor or call [facility] ([phone]) for
assistance with interpretation of these results.

This test was developed and its performance
characteristics have been determined by [facility]. It has not been cleared or approved by
the U.S. Food and Drug Administration. The FDA has
determined that such clearance or approval is not
necessary. Performance characteristics refer to
the analytical performance of the test.

Test Performed at:
[facility]
[address] [place] [address]
[place] [address] Ariadne Johnson MD, PhD [facility] HEMATOLOGY Protein C Tot 129 70 - 140 11/06/2014 <sup>18</sup>Result Comment:
Decre ased levels of Protein C antigen may be found
in congenital deficiency, treatment with oral
anticoagulants, liver disease, D.I.C. and post
surgery.
Test Performed at:
[facility]
[address] [place] [address]
[place] [address] Ariadne Johnson MD, PhD [facility] HEMATOLOGY F2 Mut Interp FACTO R II PT: Negative INTERPRETATION: Molecular analysis for the Factor II (Prothrombin) 83842G>A mutation was negative. Other causes of elevated [...] uses the FDA-cleared Brina Factor II (Prothrombin) [id number] IVD (Polymerase chain reaction/FRET detection)kit, [employer] LC Instrument and the Brina LightCycler 1.2 Instrument. A 165-bp fragment of Factor II gene(FII) containing the Factor II [id number] sequence is amplified in the assay. The assay is designed to detect the [id number] mutation only. Other causes of elevated prothrombin levels and hereditary forms of venous thrombosis are not ruled out. However, the melting curve analysis may implicate the presence of a possible rare mutation at position 71780 (Further testing will be recommended in the report). A minimum detection level is 198 copies of Factor II per reaction. The level of agreement between the Factor II(Prothrombin) [id number] Kit and sequence analysis was 98.9%. The test result must be interpreted along with the patient's clinical history and revelant laboratory data. This assay has been validated by [facility]. 11/06/2014 [facility] HEMATOLOGY F2 Mutation PCR Negat sue (11/06/14 12:07 PM) 11/06/2014 [facility] HEMATOLOGY AT III Func 116 77 - 140 11/06/2014 [facility] HEMATOLOGY Protein S Tot 119 70 - 140 11/06/2014 <sup>19</sup>Result Comment: Test Perfor med at:
[facility]
[id number] [address] [facility]
[place] [address] Ariadne Johnson MD, PhD [facility] HEMATOLOGY F5 Leiden Intrp FACTO R [...] V Leiden IVD(Poymerase chain reaction/FRET detection)kit, Brina Zoosk LC Instrument and the Brina LightCycler 1.2 [...] data. This assay has been validated by [facility]. 11/06/2014 [facility] HEMATOLOGY F5 Leiden PCR Negat sue (11/06/14 12:07 PM) 11/06/2014 [facility] HEMATOLOGY dRVV Ratio 0.97 <=1.20 11/06/2014 [facility] HEMATOLOGY Hex Phos N Negat sue (11/06/14 12:07 PM) Negative 11/06/2014 [facility] HEMATOLOGY Lup Interp The l upus panel shows normal values for DRVVT and platelet hexagonal phospholipid neutralization. Impression: Negative lupus anticoagulant panel CPT: 88518 11/06/2014 [facility] HEMATOLOGY INR 1.05 0.85 - 1.17 11/06/2014 <sup>14</sup>Interpretive Data: RECOMMEN DED RANGES FOR PROTIME INR:
2.0-3.0 for most medical and surgical thromboembolic states.
2.5-3.5 for artificial heart valves and recurrent embolism.

INR SHOULD BE USED ONLY FOR PATIENTS ON STABLE ANTICOAGULANT THERAPY. [facility] HEMATOLOGY PT 13.7 12.0 - 14.7 11/06/2014 [facility] HEMATOLOGY PTT 38.5 22.9 - 35.8 11/06/2014 <sup>16</sup>Interpretive Data: Heparin Therapeutic Range: 57 - 92 Seconds [facility] HEMATOLOGY RDW 14.1 11.5 - 14.5 11/06/2014 [facility] HEMATOLOGY MPV 8.1 7.4 - 10.4 11/06/2014 [facility] HEMATOLOGY Platelet 189 133 - 450 11/06/2014 [facility] HEMATOLOGY MCHC 31.2 32.0 - 36.0 11/06/2014 [facility] HEMATOLOGY Hct 38.1 36.0 - 48.0 11/06/2014 [facility] HEMATOLOGY MCV 91.3 80.0 - 98.0 11/06/2014 [facility] HEMATOLOGY RBC 4.17 4.20 - 5.40 11/06/2014 [facility] HEMATOLOGY MCH 28.5 27.0 - 31.0 11/06/2014 [facility] HEMATOLOGY Hgb 11.9 12.0 - 16.0 11/06/2014 [facility] HEMATOLOGY WBC 6.9 3.7 - 10.4 11/06/2014 [facility] HEMATOLOGY AT III Ag 31 19 - 30 11/06/2014 <sup>15</sup>Result Comment: Test Perfor med at:
[facility]
[address] [place] [address]
[place] [address] Ariadne Johnson MD, PhD [facility] IMMUNOLOGY Varicella IgM 0.63 11/06/2014 <sup>10</sup>Result [...] two or more weeks.
Test Performed at:
[facility]
[address] [place] [address]
[place] [address] Nissa Birmingham MD [facility] IMMUNOLOGY Varicella IgG 3.0 <=0.8 AI 11/06/2014 <sup>9</sup>Interpretive Data: Antibody Index (AI) Results Interpretation
-------
0.0-0.8 Negative No detectable IgG Antibody.
0.9-1.0 Equivocal Repeat testing suggested in
10-14 days.
>=1.10 Positive Indicates presence of detectable
IgG Antibody. [facility] IMMUNOLOGY Treponemal Scr Non R eactive *NA* (11/06/14 12:07 PM) Non Reactive 11/06/2014 [facility] IMMUNOLOGY [place] Ser Interp The s evi immunofixation electrophoresis demonstrates polyclonal distribution of immunoglobulins. No monoclonal immunoglobulins are detected. The electronic medical record has been reviewed for relevant history. I have personally reviewed the test results and concur with the resident's interpretation. CPT 04582-QX 11/06/2014 [facility] IMMUNOLOGY [place] Ser Pattern Diffu sely staining immunoreactivity is present in the IgG, IgA, IgM, kappa, and lambda lanes in a normal polyclonal distribution. No monoclonal immunoglobulins are detected. 11/06/2014 [facility] IMMUNOLOGY Cardiolipin IgM 2.4 <=19.9 MPL 11/06/2014 [facility] IMMUNOLOGY Cardiolipin IgG 1.6 <=19.9 GPL 11/06/2014 [facility] IMMUNOLOGY Cardiolipin IgA 46.3 <=19.9 APL 11/06/2014 [facility] IMMUNOLOGY Homocyst Tot 25.0 3.7 - 13.9 11/06/2014 [facility] IMMUNOLOGY CMV IgM 0.2 11/06/2014 <sup>6</sup>Interpretive Data: Reference Ranges:
Non-reactive: <0.9 S/CO Ratio
Indeterminate: 0.9 - 1.0 S/CO Ratio
Reactive: >=1.1 S/CO Ratio [facility] IMMUNOLOGY CMV IgG React sue *ABN* (11/06/14 12:07 PM) Non Reactive 11/06/2014 [facility] IMMUNOLOGY Gamma Glob 1.28 0.71 - 1.57 11/06/2014 [facility] IMMUNOLOGY SPE Interp Capil leeroy electrophoresis [...] and concur with the resident's interpretation. CPT [id number] 11/06/2014 [facility] IMMUNOLOGY Beta % 11.9 7.8 - 13.7 11/06/2014 [facility] IMMUNOLOGY Alpha 1 % 3.4 2.8 - 4.9 11/06/2014 [facility] IMMUNOLOGY Gamma % 15.6 11.1 - 18.7 11/06/2014 [facility] IMMUNOLOGY Alpha 2 % 11.3 7.0 - 11.9 11/06/2014 [facility] IMMUNOLOGY Albumin % 57.8 55.8 - 66.1 11/06/2014 [facility] IMMUNOLOGY Alpha 2 Glob 0.93 0.45 - 1.00 11/06/2014 [facility] IMMUNOLOGY Beta Glob 0.98 0.50 - 1.15 11/06/2014 [facility] IMMUNOLOGY Alpha 1 Glob 0.28 0.18 - 0.41 11/06/2014 [facility] IMMUNOLOGY Albumin (SPE) 4.74 3.57 - 5.55 11/06/2014 [facility] IMMUNOLOGY Tot Prot (SPE) 8.2 6.4 - 8.4 11/06/2014 [facility] IMMUNOLOGY HSV 1 IgG >8.0 <=0.8 AI 11/06/2014 <sup>11</sup>Interpretive Data: Antibody Index (AI) Results Interpretation
-------
0.0-0.8 Negative No detectable IgG Antibody.
0.9-1.0 Equivocal Repeat testing suggested in
10-14 days.
>=1.10 Positive Indicates presence of detectable
IgG Antibody. [facility] IMMUNOLOGY HSV 2 IgG 6.4 <=0.8 AI 11/06/2014 <sup>12</sup>Interpretive Data: Antibody Index (AI) Results Interpretation
-------
0.0-0.8 Negative No detectable IgG Antibody.
0.9-1.0 Equivocal Repeat testing suggested in
10-14 days.
>=1.10 Positive Indicates presence of detectable
IgG Antibody. [facility] IMMUNOLOGY [place]/Lambda Free Light C hains Ratio 1.45 0.26 - 1.65 11/06/2014 [facility] IMMUNOLOGY Lambda Free Light Chains 123.32 5.70 - 26.30 11/06/2014 [facility] IMMUNOLOGY [place] Free Light Chains 1 78.57 3.30 - 19.40 11/06/2014 [facility] IMMUNOLOGY T-Spot.TB Negat sue (11/06/14 12:07 PM) Negative 11/06/2014 [facility] IMMUNOLOGY Hep B Core Ab Negat sue *NA* (11/06/14 12:07 PM) Negative 11/06/2014 [facility] IMMUNOLOGY Hep Bs Ab 6.6 <=7.4 mIU/mL 11/06/2014 <sup>13</sup>Interpretive Data: <=7.4 mI U/mL--------Negative for Anti- HBs. Not immune to HBV infection.

7.5-12.4 mIU/mL--Borderline for Anti- HBs and immune status
should be further assessed by considering other factors such
as clinical status follow-up testing, associated risk factors,
and the use of additional diagnostic information.

>12.4 mIU/mL-------Positive for Anti-HBs. Immune to HBV infection [facility] IMMUNOLOGY Hep C Ab Negat sue *NA* (11/06/14 12:07 PM) 11/06/2014 [facility] IMMUNOLOGY Hep Bs Ag Negat sue *NA* (11/06/14 12:07 PM) Negative 11/06/2014 [facility] IMMUNOLOGY HIV 1/2 Ab Negat sue *NA* (11/06/14 12:07 PM) Negative 11/06/2014 [facility] IMMUNOLOGY EBV VCA IgM <0.2 <=0.8 AI 11/06/2014 <sup>8</sup>Interpretive Data: Antibody Index (AI) Results Interpretation
-------
0.0-0.8 Negative No detectable IgM Antibody.
0.9-1.0 Equivocal Repeat testing suggested in
10-14 days.
>=1.10 Positive Significant level of detectable
IgM Antibody, indicative of
current or recent infection. [facility] IMMUNOLOGY EBV VCA IgG >8.0 <=0.8 AI 11/06/2014 <sup>7</sup>Interpretive Data: Antibody Index (AI) Results Interpretation
-------
0.0-0.8 Negative No detectable IgG Antibody.
0.9-1.0 Equivocal Repeat testing suggested in
10-14 days.
>=1.10 Positive Indicates presence of detectable
IgG Antibody. [facility] LIPIDS CHD Risk 2.97 3.90 - 5.80 11/06/2014 [facility] LIPIDS VLDL 75 11/06/2014 [facility] LIPIDS LDL (Calculated) 45 <=99 mg/dL 11/06/2014 [facility] LIPIDS Trig 377 <=149 mg/dL 11/06/2014 [facility] LIPIDS Chol 181 <=199 mg/dL 11/06/2014 [facility] LIPIDS HDL 61 >=61 mg/dL 11/06/2014 [facility] MOLECULAR DIAGNOSTIC Source BK Virus PCR Qnt Plasma 11/06/2014 [facility] MOLECULAR DIAGNOSTIC BK Virus PCR Qn t Negative (11/06/14 12:07 PM) Negative 11/06/2014 [facility] MOLECULAR DIAGNOSTIC BK Virus PCR Qn [...] verified by the [facility] Diagnostic [facility] within [facility]. The Molecular Diagnostic Laboratory is authorized under the Clinical Laboratory Improvement Amendments of 1988 (CLIA-88) to perform high complexity testing. [facility] PARASITOLOGY - SEROLOGY Strongyloide s Antibodies [...] in other
helminth infections.
Test Performed at:
[facility]
[id number] [address] [facility]
[place] [address] Nissa Birmingham MD [facility] SPECIAL CHEMISTRY Hgb A1C 5.5 <=5.6 % 11/06/2014 [facility] TOXICOLOGY [employer] 465 11/06/2014 <sup>5</sup>Interpretive Data: [...] Administration.
[employer] (R) is a trademark of [employer]. [facility] CARDIAC ENZYMES CK MB 0.7 0.5 - 3.6 09/19/2014 [facility] CARDIAC ENZYMES Troponin-I <0.02 0.00 - 0.40 09/19/2014 [facility] CARDIAC ENZYMES Total CK 59 12 - 191 09/19/2014 [facility] CARDIAC ENZYMES CK MB Index 1.2 0.0 - 2.5 09/19/2014 [facility] CHEM PANEL Phosphorus 5.1 2.5 - 4.5 09/19/2014 [facility] CHEM PANEL Magnesium Lvl 2.3 1.8 - 2.4 09/19/2014 [facility] CHEM PANEL eGFR 6 09/19/2014 <sup>1</sup>Result Comment: [...] should be multiplied by the estimated BMI. [facility] CHEM PANEL Calcium Lvl 7.3 8.5 - 10.5 09/19/2014 [facility] CHEM PANEL CO2 26 24 - 32 09/19/2014 [facility] CHEM PANEL Albumin Lvl 3.4 3.5 - 5.0 09/19/2014 [facility] CHEM PANEL BUN 52 7 - 22 09/19/2014 [facility] CHEM PANEL Creatinine Lvl 6.8 0.5 - 1.4 09/19/2014 [facility] CHEM PANEL Chloride Lvl 103 95 - 109 09/19/2014 [facility] CHEM PANEL Potassium Lvl 5.6 3.5 - 5.1 09/19/2014 [facility] CHEM PANEL Sodium Lvl 139 135 - 145 09/19/2014 [facility] CHEM PANEL Glucose Lvl 98 70 - 99 09/19/2014 <sup>2</sup>Interpretive Data: Adult ref erence range values reflect the clinical guidelines
of the [place] [employer]. [facility] CHEM PANEL AGAP 15.6 10.0 - 20.0 09/19/2014 [facility] CHEM PANEL B/C Ratio 8 6 - 25 09/19/2014 [facility] CHEM PANEL Globulin 3.6 2.0 - 4.0 09/19/2014 [facility] CHEM PANEL A/G Ratio 0.9 0.7 - 1.6 09/19/2014 [facility] CHEM PANEL AST 18 0 - 37 09/19/2014 [facility] CHEM PANEL Bili Total 0.3 0.2 - 1.3 09/19/2014 [facility] CHEM PANEL Alk Phos 172 39 - 136 09/19/2014 [facility] CHEM PANEL Total Protein 7.0 6.4 - 8.4 09/19/2014 [facility] CHEM PANEL ALT 34 0 - 65 09/19/2014 [facility] ENDOCRINOLOGY S Preg Ne gative *NA* (09/19/14 7:47 AM) Negative 09/19/2014 [facility] HEMATOLOGY WBC 6.9 3.7 - 10.4 09/19/2014 [facility] HEMATOLOGY RBC 3.32 4.20 - 5.40 09/19/2014 [facility] HEMATOLOGY MCH 30.8 27.0 - 31.0 09/19/2014 [facility] HEMATOLOGY MCV 94.3 80.0 - 98.0 09/19/2014 [facility] HEMATOLOGY MPV 8.8 7.4 - 10.4 09/19/2014 [facility] HEMATOLOGY Hct 31.3 36.0 - 48.0 09/19/2014 [facility] Hgb 10.2 12.0 - 16.0 09/19/2014 [facility] RDW 14.2 11.5 - 14.5 09/19/2014 [facility] Platelet 179 133 - 450 09/19/2014 [facility] MCHC 32.6 32.0 - 36.0 09/19/2014 [facility] Lymphocytes # 1.7 1.0 - 5.5 09/19/2014 [facility] HEMATOLOGY Eosinophils # 0.2 0.0 - 0.5 09/19/2014 [facility] Monocytes # 0.5 0.0 - 0.8 09/19/2014 [facility] Lymphocytes 25.3 20.0 - 40.0 09/19/2014 [facility] Segs 63.9 45.0 - 75.0 09/19/2014 [facility] Monocytes 7.4 2.0 - 12.0 09/19/2014 [facility] Eosinophils 2.8 0.0 - 4.0 09/19/2014 [facility] Segs-Bands # 4.4 1.5 - 8.1 09/19/2014 [facility] Basophils 0.6 0.0 - 1.0 09/19/2014 [facility] Children CHEM PANEL Lipase Lvl 218 73 - 393 09/03/2014 [facility] CHEM PANEL Amylase Lvl 103 25 - 115 09/03/2014 [facility] ELECTROLYTES Sodium Lvl 137 135 - 145 09/03/2014 [facility] ELECTROLYTES Potassium Lvl 4.2 3.5 - 5.1 09/03/2014 [facility] ELECTROLYTES Chloride Lvl 97 95 - 109 09/03/2014 [facility] ELECTROLYTES eGFR 5 09/03/2014 <sup>1</sup>Result Comment: The [...] should be multiplied by the estimated BMI. [facility] ELECTROLYTES Bili Total 0.5 0.2 - 1.3 09/03/2014 [facility] ELECTROLYTES Alk Phos 182 39 - 136 09/03/2014 [facility] ELECTROLYTES Total Protein 7.5 6.4 - 8.4 09/03/2014 [facility] ELECTROLYTES Calcium Lvl 7.5 8.5 - 10.5 09/03/2014 [facility] ELECTROLYTES CO2 28 24 - 32 09/03/2014 [facility] ELECTROLYTES BUN 62 7 - 22 09/03/2014 [facility] ELECTROLYTES ALT 27 0 - 65 09/03/2014 [facility] ELECTROLYTES Albumin Lvl 3.7 3.5 - 5.0 09/03/2014 [facility] ELECTROLYTES Creatinine Lvl 8.8 0.5 - 1.4 09/03/2014 [facility] ELECTROLYTES Glucose Lvl 116 70 - 99 09/03/2014 <sup>2</sup>Interpretive Data: Adult ref erence range values reflect the clinical guidelines
of the [place] [employer]. [facility] ELECTROLYTES AST 15 0 - 37 09/03/2014 [facility] ELECTROLYTES A/G Ratio 1.0 0.7 - 1.6 09/03/2014 [facility] ELECTROLYTES Globulin 3.8 2.0 - 4.0 09/03/2014 [facility] ELECTROLYTES B/C Ratio 7 6 - 25 09/03/2014 [facility] ELECTROLYTES AGAP 16.2 10.0 - 20.0 09/03/2014 [facility] HEMATOLOGY MCH 31.4 27.0 - 31.0 09/03/2014 [facility] HEMATOLOGY MPV 7.4 7.4 - 10.4 09/03/2014 [facility] HEMATOLOGY Platelet 198 133 - 450 09/03/2014 [facility] HEMATOLOGY Hgb 10.1 12.0 - 16.0 09/03/2014 [facility] HEMATOLOGY RDW 14.2 11.5 - 14.5 09/03/2014 [facility] HEMATOLOGY MCHC 34.0 32.0 - 36.0 09/03/2014 [facility] HEMATOLOGY WBC 7.1 3.7 - 10.4 09/03/2014 [facility] HEMATOLOGY RBC 3.21 4.20 - 5.40 09/03/2014 [facility] HEMATOLOGY MCV 92.5 80.0 - 98.0 09/03/2014 [facility] HEMATOLOGY Hct 29.7 36.0 - 48.0 09/03/2014 [facility] HEMATOLOGY Lymphocytes 25.1 20.0 - 40.0 09/03/2014 [facility] HEMATOLOGY Monocytes 8.0 2.0 - 12.0 09/03/2014 [facility] HEMATOLOGY Lymphocytes # 1.8 1.0 - 5.5 09/03/2014 [facility] HEMATOLOGY Monocytes # 0.6 0.0 - 0.8 09/03/2014 [facility] HEMATOLOGY Eosinophils # 0.3 0.0 - 0.5 09/03/2014 [facility] HEMATOLOGY Segs-Bands # 4.5 1.5 - 8.1 09/03/2014 [facility] HEMATOLOGY Segs 62.9 45.0 - 75.0 09/03/2014 [facility] HEMATOLOGY Eosinophils 3.6 0.0 - 4.0 09/03/2014 [facility] HEMATOLOGY Basophils 0.4 0.0 - 1.0 09/03/2014 [facility] IMMUNOLOGY CDC HIV 4th GEN Negat sue (09/03/14 6:53 AM) Negative 09/03/2014 [facility] ANEMIA STUDY Ferritin Lvl 930 5 - 204 08/02/2014 [facility] ANEMIA STUDY % Satur Fe 39 12 - 57 08/02/2014 [facility] ANEMIA STUDY UIBC 188 110 - 370 08/02/2014 [facility] ANEMIA STUDY TIBC 307 228 - 428 08/02/2014 [facility] ANEMIA STUDY Iron 119 30 - 160 08/02/2014 [facility] ANEMIA STUDY Transferrin 256 212 - 360 08/02/2014 [facility] HEMATOLOGY MPV 7.5 7.4 - 10.4 08/02/2014 [facility] HEMATOLOGY Platelet 190 133 - 450 08/02/2014 [facility] HEMATOLOGY MCHC 33.7 32.0 - 36.0 08/02/2014 [facility] HEMATOLOGY RDW 13.9 11.5 - 14.5 08/02/2014 [facility] HEMATOLOGY MCV 91.9 80.0 - 98.0 08/02/2014 [facility] HEMATOLOGY MCH 30.9 27.0 - 31.0 08/02/2014 [facility] HEMATOLOGY Hgb 8.4 12.0 - 16.0 08/02/2014 [facility] HEMATOLOGY Hct 25.0 36.0 - 48.0 08/02/2014 [facility] HEMATOLOGY RBC 2.72 4.20 - 5.40 08/02/2014 [facility] HEMATOLOGY WBC 5.5 3.7 - 10.4 08/02/2014 [facility] HEMATOLOGY Monocytes 9.0 2.0 - 12.0 08/02/2014 [facility] HEMATOLOGY Eosinophils 4.3 0.0 - 4.0 08/02/2014 [facility] HEMATOLOGY Basophils 0.4 0.0 - 1.0 08/02/2014 [facility] HEMATOLOGY Segs 54.9 45.0 - 75.0 08/02/2014 [facility] HEMATOLOGY Lymphocytes 31.4 20.0 - 40.0 08/02/2014 [facility] HEMATOLOGY Lymphocytes # 1.7 1.0 - 5.5 08/02/2014 [facility] HEMATOLOGY Segs-Bands # 3.0 1.5 - 8.1 08/02/2014 [facility] HEMATOLOGY Monocytes # 0.5 0.0 - 0.8 08/02/2014 [facility] HEMATOLOGY Eosinophils # 0.2 0.0 - 0.5 08/02/2014 [facility] HEMATOLOGY Sed Rate 63 0 - 20 08/02/2014 [facility] IMMUNOLOGY Hep Bs Ag Negat sue *NA* (08/02/14 5:32 AM) Negative 08/02/2014 [facility] IMMUNOLOGY C-REACTIVE PROTEIN 6.1 <=2.9 mg/L 08/02/2014 [facility] BLOOD BANK RESULTS RBC product Product available 2 (08/01/14 2:03 PM) 08/01/2014 <sup>2</sup>Result Comment: 08/01/2014 21:07 [id number]
Called to Oniel at 08/01/2014 21:07 by AN [facility] BLOOD BANK RESULTS AB Int Anti-M 08/01/2014 [facility] BLOOD BANK RESULTS Antibody Scrn Positive 1 (08/01/14 8:46 AM) 08/01/2014 <sup>1</sup>Result Comment: 08/01/2014 11:22 [id number]
"Significant Findings called to Nicolas Marcelino at 08/01/2014 11:22 _by QUENTIN__.Read Back OK." [facility] BLOOD BANK RESULTS ABO/Rh O POS 08/01/2014 [facility] BLOOD BANK RESULTS RBC product Product available 3 (08/01/14 7:36 AM) 08/01/2014 <sup>3</sup>Result Comment: 08/01/2014 21:07 [id number]
Called to Oniel at 08/01/2014 21:07 by AN [facility] CARDIAC ENZYMES CK MB 1.0 0.5 - 3.6 08/01/2014 [facility] CARDIAC ENZYMES Troponin-I <0.02 0.00 - 0.40 08/01/2014 [facility] CHEM PANEL Magnesium Lvl 2.2 1.8 - 2.4 08/01/2014 [facility] ELECTROLYTES AGAP 15.5 10.0 - 20.0 08/01/2014 [facility] ELECTROLYTES B/C Ratio 9 6 - 25 08/01/2014 [facility] ELECTROLYTES Globulin 4.1 2.0 - 4.0 08/01/2014 [facility] ELECTROLYTES A/G Ratio 0.9 0.7 - 1.6 08/01/2014 [facility] ELECTROLYTES eGFR 6 08/01/2014 <sup>4</sup>Result Comment: The [...] should be multiplied by the estimated BMI. [facility] ELECTROLYTES Alk Phos 187 39 - 136 08/01/2014 [facility] ELECTROLYTES Bili Total 0.4 0.2 - 1.3 08/01/2014 [facility] ELECTROLYTES Albumin Lvl 3.7 3.5 - 5.0 08/01/2014 [facility] ELECTROLYTES ALT 36 0 - 65 08/01/2014 [facility] ELECTROLYTES AST 29 0 - 37 08/01/2014 [facility] ELECTROLYTES Total Protein 7.8 6.4 - 8.4 08/01/2014 [facility] ELECTROLYTES CO2 29 24 - 32 08/01/2014 [facility] ELECTROLYTES Calcium Lvl 7.8 8.5 - 10.5 08/01/2014 [facility] ELECTROLYTES Creatinine Lvl 6.8 0.5 - 1.4 08/01/2014 [facility] ELECTROLYTES Sodium Lvl 138 135 - 145 08/01/2014 [facility] ELECTROLYTES Glucose Lvl 129 70 - 99 08/01/2014 <sup>5</sup>Interpretive Data: Adult ref erence range values reflect the clinical guidelines
of the [place] [employer]. [facility] ELECTROLYTES BUN 58 7 - 22 08/01/2014 [facility] ELECTROLYTES Potassium Lvl 4.5 3.5 - 5.1 08/01/2014 [facility] ELECTROLYTES Chloride Lvl 98 95 - 109 08/01/2014 [facility] HEMATOLOGY PTT 38.1 22.9 - 35.8 08/01/2014 <sup>7</sup>Interpretive Data: Heparin T herapeutic Range: 57 - 92 Seconds [facility] PT 13.1 12.0 - 14.7 08/01/2014 [facility] INR 0.99 0.85 - 1.17 08/01/2014 <sup>6</sup>Interpretive Data: RECOMMEND ED RANGES FOR PROTIME INR:
2.0- 3.0 for most medical and surgical thromboembolic states.
2.5-3.5 for artificial heart valves and recurrent embolism.

INR SHOULD BE USED ONLY FOR PATIENTS ON STABLE ANTICOAGULANT THERAPY. [facility] HEMATOLOGY Platelet 223 133 - 450 08/01/2014 [facility] RDW 13.3 11.5 - 14.5 08/01/2014 [facility] MPV 7.4 7.4 - 10.4 08/01/2014 [facility] MCHC 33.7 32.0 - 36.0 08/01/2014 [facility] MCH 31.0 27.0 - 31.0 08/01/2014 [facility] WBC 6.2 3.7 - 10.4 08/01/2014 [facility] Hgb 7.6 12.0 - 16.0 08/01/2014 [facility] RBC 2.46 4.20 - 5.40 08/01/2014 [facility] Hct 22.6 36.0 - 48.0 08/01/2014 [facility] MCV 91.9 80.0 - 98.0 08/01/2014 [facility] Eosinophils # 0.3 0.0 - 0.5 08/01/2014 [facility] HEMATOLOGY Lymphocytes 25.3 20.0 - 40.0 08/01/2014 [facility] HEMATOLOGY Monocytes 8.1 2.0 - 12.0 08/01/2014 [facility] HEMATOLOGY Eosinophils 4.5 0.0 - 4.0 08/01/2014 [facility] HEMATOLOGY Basophils 0.4 0.0 - 1.0 08/01/2014 [facility] HEMATOLOGY Segs-Bands # 3.8 1.5 - 8.1 08/01/2014 [facility] Lymphocytes # 1.6 1.0 - 5.5 08/01/2014 [facility] Monocytes # 0.5 0.0 - 0.8 08/01/2014 [facility] HEMATOLOGY Segs 61.7 45.0 - 75.0 08/01/2014 [facility] BEDSIDE GLUCOSE TESTING Glucose POC 123 70 - 99 11/29/2013 [place] <sup>2</sup>Interpretive Data: Upper Reportable Limit: 200 mg/dL. [facility] BEDSIDE GLUCOSE TESTING Gluc POC Com ment 1 Notified RN/ 11/29/2013 [facility] CHEMISTRY AGAP 14.1 10.0 - 20.0 11/29/2013 Normal [facility] CHEMISTRY eGFR 10 11/29/2013 <sup>7</sup>Result Comment: The [...] should be multiplied by the estimated BMI. [facility] CHEMISTRY Calcium Lvl 8.2 8.5 - 10.5 11/29/2013 LOW [facility] CHEMISTRY CO2 27 24 - 32 11/29/2013 Normal [facility] CHEMISTRY Creatinine Lvl 4.7 0.5 - 1.4 11/29/2013 [facility] CHEMISTRY BUN 35 7 - 22 11/29/[address] [facility] CHEMISTRY Glucose Lvl 82 70 - 99 11/29/2013 Normal <sup>10</sup>Interpretive Data: Adult re ference range values reflect the clinical guidelines
of the [place] [employer]. [facility] CHEMISTRY Chloride Lvl 100 95 - 109 11/29/2013 Normal [facility] CHEMISTRY Potassium Lvl 5.1 3.5 - 5.1 11/29/2013 Normal [facility] CHEMISTRY Sodium Lvl 136 135 - 145 11/29/2013 [facility] HEMATOLOGY Basophils # 0.0 0.0 - 0.2 11/29/2013 [facility] HEMATOLOGY Monocytes # 0.5 0.0 - 0.8 11/29/2013 [facility] HEMATOLOGY Eosinophils # 0.2 0.0 - 0.5 11/29/2013 [facility] HEMATOLOGY Lymphocytes # 1.2 1.0 - 5.5 11/29/2013 Normal [facility] HEMATOLOGY Segs-Bands # 2.9 1.5 - 8.1 11/29/2013 Normal [facility] HEMATOLOGY Eosinophils 4.9 0.0 - 4.0 11/29/2013 [facility] HEMATOLOGY Monocytes 9.4 2.0 - 12.0 11/29/2013 [facility] HEMATOLOGY Basophils 0.3 0.0 - 1.0 11/29/2013 Normal [facility] HEMATOLOGY Lymphocytes 25.3 20.0 - 40.0 11/29/2013 Normal [facility] HEMATOLOGY Segs 60.1 45.0 - 75.0 11/29/2013 Normal [facility] HEMATOLOGY MPV 7.0 7.4 - 10.4 11/29/2013 LOW [facility] HEMATOLOGY Platelet 291 133 - 450 11/29/2013 Normal [facility] HEMATOLOGY MCV 93.1 81.0 - 99.0 11/29/2013 Normal [facility] HEMATOLOGY Hct 23.6 36.0 - 48.0 11/29/2013 LOW [facility] HEMATOLOGY MCHC 33.0 32.0 - 36.0 11/29/2013 Normal [facility] HEMATOLOGY MCH 30.8 27.0 - 31.0 11/29/2013 Normal [facility] HEMATOLOGY RDW 14.1 11.5 - 14.5 11/29/2013 Normal [facility] HEMATOLOGY WBC X 10x3 4.8 3.7 - 10.4 11/29/2013 Normal [facility] HEMATOLOGY Hgb 7.8 12.0 - 16.0 11/29/2013 LOW [facility] HEMATOLOGY RBC X 10x6 2.54 4.20 - 5.40 11/29/2013 LOW [facility] BEDSIDE GLUCOSE TESTING Gluc POC Com ment 1 Notified GI/ 11/29/2013 [facility] BEDSIDE GLUCOSE TESTING Glucose POC 65 70 - 99 11/29/2013 LOW <sup>3</sup>Interpretive Data: Upper Reportable Limit: 200 mg/dL. [facility] BEDSIDE GLUCOSE TESTING Gluc POC Com ment 1 Notified GI/ 11/29/2013 [facility] BEDSIDE GLUCOSE TESTING Glucose POC 73 70 - 99 11/29/2013 Normal <sup>4</sup>Interpretive Data: Upper Reportable Limit: 200 mg/dL. [facility] CHEMISTRY AGAP 16.7 10.0 - 20.0 11/27/2013 Normal [facility] CHEMISTRY B/C Ratio 6 6 - 25 11/27/2013 Normal [facility] CHEMISTRY Globulin 3.6 2.0 - 4.0 11/27/2013 Normal [facility] CHEMISTRY A/G Ratio 0.7 0.7 - 1.6 11/27/2013 Normal [facility] CHEMISTRY Calcium Lvl 8.2 8.5 - 10.5 11/27/2013 LOW [facility] CHEMISTRY Chloride Lvl 108 95 - 109 11/27/2013 Normal [facility] CHEMISTRY Sodium Lvl 141 135 - 145 11/27/2013 Normal [facility] CHEMISTRY Potassium Lvl 4.7 3.5 - 5.1 11/27/2013 Normal [facility] CHEMISTRY eGFR 9 11/27/2013 <sup>8</sup>Result Comment: The [...] should be multiplied by the estimated BMI. [facility] CHEMISTRY ALANINE AMINOTRANSFERASE 1 8 0 - 65 11/27/2013 Normal [facility] CHEMISTRY ASPARTATE TRANSAMINASE 17 0 - 37 11/27/2013 Normal [facility] CHEMISTRY Bili Total 0.7 0.2 - 1.3 11/27/2013 Normal [facility] CHEMISTRY Alk Phos 120 39 - 136 11/27/2013 Normal [facility] CHEMISTRY Creatinine Lvl 5.4 0.5 - 1.4 11/27/2013 HI [facility] CHEMISTRY Total Protein 6.0 6.4 - 8.4 11/27/2013 LOW [facility] CHEMISTRY CO2 21 24 - 32 11/27/2013 LOW [facility] CHEMISTRY Albumin Lvl 2.4 3.5 - 5.0 11/27/2013 [facility] CHEMISTRY Glucose Lvl 116 70 - 99 11/27/2013 [place] <sup>11</sup>Interpretive Data: Adult re ference range values reflect the clinical guidelines
of the [place] [employer]. [facility] CHEMISTRY BUN 30 7 - 22 11/27/2013 HI [facility] HEMATOLOGY Hct 26.9 36.0 - 48.0 11/27/2013 LOW [facility] HEMATOLOGY MCV 93.3 81.0 - 99.0 11/27/2013 Normal [facility] HEMATOLOGY MCH 30.7 27.0 - 31.0 11/27/2013 Normal [facility] HEMATOLOGY RBC X 10x6 2.89 4.20 - 5.40 11/27/2013 [facility] HEMATOLOGY Hgb 8.9 12.0 - 16.0 11/27/2013 [facility] HEMATOLOGY WBC X 10x3 5.4 3.7 - 10.4 11/27/2013 Normal [facility] HEMATOLOGY Platelet 260 133 - 450 11/27/2013 Normal [facility] HEMATOLOGY MPV 6.7 7.4 - 10.4 11/27/2013 [facility] HEMATOLOGY RDW 14.2 11.5 - 14.5 11/27/2013 Normal [facility] HEMATOLOGY MCHC 32.9 32.0 - 36.0 11/27/2013 Normal [facility] HEMATOLOGY Monocytes # 0.3 0.0 - 0.8 11/27/2013 Normal [facility] HEMATOLOGY Segs-Bands # 4.3 1.5 - 8.1 11/27/2013 Normal [facility] HEMATOLOGY Lymphocytes # 0.6 1.0 - 5.5 11/27/2013 LOW [facility] HEMATOLOGY Basophils 0.2 0.0 - 1.0 11/27/2013 Normal [facility] HEMATOLOGY Eosinophils 2.3 0.0 - 4.0 11/27/2013 Normal [facility] HEMATOLOGY Eosinophils # 0.1 0.0 - 0.5 11/27/2013 Normal [facility] HEMATOLOGY Basophils # 0.0 0.0 - 0.2 11/27/2013 Normal [facility] HEMATOLOGY Lymphocytes 11.2 20.0 - 40.0 11/27/2013 LOW [facility] HEMATOLOGY Monocytes 5.7 2.0 - 12.0 11/27/2013 Normal [facility] HEMATOLOGY RBC Morph Nicolasa l (11/27/2013 05:00:00) 11/27/2013 Normal [facility] HEMATOLOGY Plt Morph Nicolasa l (11/27/2013 05:00:00) 11/27/2013 Normal [facility] HEMATOLOGY Segs 80.6 45.0 - 75.0 11/27/[address] [facility] CHEMISTRY Daquan 60 Min 31.1 3.0 - 23.0 11/26/[address] [facility] CHEMISTRY Daquan 30 Min 27.7 3.0 - 23.0 11/26/[address] [facility] CHEMISTRY Cortisol 7.2 3.0 - 23.0 [...] 23.0 ug/dL
4PM 3.0 - 16.0 ug/dL [facility] CHEMISTRY TRANSFERRIN 86 212 - 360 11/25/2013 LOW [facility] CHEMISTRY Ferritin Lvl 1966 5 - 204 11/25/[address] [facility] CHEMISTRY % Satur Fe 24 12 - 57 11/25/2013 Normal [facility] CHEMISTRY UIBC 79 110 - 370 11/25/2013 LOW [facility] CHEMISTRY TIBC 104 228 - 428 11/25/2013 LOW [facility] CHEMISTRY Iron 25 30 - 160 11/25/2013 LOW [facility] CHEMISTRY Chloride Lvl 104 95 - 109 11/25/2013 Normal [facility] CHEMISTRY Potassium Lvl 4.2 3.5 - 5.1 11/25/2013 Normal [facility] CHEMISTRY Sodium Lvl 144 135 - 145 11/25/2013 Normal [facility] CHEMISTRY eGFR 19 11/25/2013 <sup>9</sup>Result Comment: The [...] should be multiplied by the estimated BMI. [facility] CHEMISTRY AGAP 16.2 10.0 - 20.0 11/25/2013 Normal [facility] CHEMISTRY CO2 28 24 - 32 11/25/2013 Normal [facility] CHEMISTRY Creatinine Lvl 2.8 0.5 - 1.4 11/25/2013 HI [facility] CHEMISTRY BUN 14 7 - 22 11/25/2013 Normal [facility] CHEMISTRY Glucose Lvl 64 70 - 99 11/25/2013 LOW <sup>12</sup>Interpretive Data: Adult re ference range values reflect the clinical guidelines
of the [place] [employer]. [facility] CHEMISTRY Calcium Lvl 7.2 8.5 - 10.5 11/25/2013 LOW [facility] HEMATOLOGY RDW 13.7 11.5 - 14.5 11/25/2013 Normal [facility] HEMATOLOGY Platelet 160 133 - 450 11/25/2013 Normal [facility] HEMATOLOGY MCHC 33.7 32.0 - 36.0 11/25/2013 Normal [facility] HEMATOLOGY MCV 92.5 81.0 - 99.0 11/25/2013 [...] HEMATOLOGY Eosinophils 4.1 0.0 - 4.0 11/25/2013 [facility] HEMATOLOGY Basophils 0.3 0.0 - 1.0 11/25/2013 [facility] HEMATOLOGY Monocytes 12.7 2.0 - 12.0 11/25/2013 [facility] HEMATOLOGY Lymphocytes 27.2 20.0 [...] Protein 5.3 6.4 - 8.4 11/24/2013 LOW [facility] CHEMISTRY Albumin Lvl 2.2 3.5 - 5.0 11/24/2013 LOW [facility] CHEMISTRY Globulin 3.1 2.0 - 4.0 11/24/2013 Normal [facility] CHEMISTRY ACTH Lvl <5 0 - 46 11/24/2013 Normal [facility] CHEMISTRY Cortisol 12.7 3.0 - 23.0 11/24/2013 [...] 23.0 ug/dL
4PM 3.0 - 16.0 ug/dL [facility] HEMATOLOGY Sed Rate 70 0 - 20 11/24/[address] [facility] CHEMISTRY Cortisol 31.6 3.0 - 23.0 [...] 23.0 ug/dL
4PM 3.0 - 16.0 ug/dL [facility] INFECTIOUS DISEASES C difficile DNA Negative 1 (11/23/2013 11:04:00) Negati ve 11/23/2013 Normal <sup>1</sup>Interpretive Data: [employer] illum[employer]ene Clostridium difficile assay utilizes loop-mediated isothermal DNA amplification (LAMP) technology to detect a 204 bp region of the tcdA gene within the PaLoc gene segment present in all known toxigenic C. difficile strains.

The assay utilizes FDA cleared IVD reagents. Performance characteristics have been verified by the [facility] within the [facility]. The Molecular Diagnostic Laboratory is authorized under the Clinical Laboratory Improvement Amendment of 1988 (CLIA-88) to perform high complexity testing. [facility] CHEMISTRY Bili Total 0.4 0.2 - 1.3 11/20/2013 Normal [facility] CHEMISTRY Alk Phos 137 39 - 136 11/20/2013 HI [facility] CHEMISTRY Total Protein 4.7 6.4 - 8.4 11/20/2013 LOW [facility] CHEMISTRY ASPARTATE TRANSAMINASE 28 0 - 37 11/20/2013 Normal [facility] CHEMISTRY ALANINE AMINOTRANSFERASE 3 2 0 - 65 11/20/2013 Normal [facility] CHEMISTRY Albumin Lvl 2.0 3.5 - 5.0 11/20/2013 LOW [facility] CHEMISTRY Globulin 2.7 2.0 - 4.0 11/20/2013 Normal [facility] CHEMISTRY A/G Ratio 0.7 0.7 - 1.6 11/20/2013 Normal [facility] CHEMISTRY B/C Ratio 6 6 - 25 11/20/2013 Normal [facility] BLOOD BANK RESULTS AB Int Non-specific IgG Antibody 11/17/2013 [facility] BLOOD BANK RESULTS AB Int Anti-M 11/17/2013 [facility] [facility] CHEMISTRY Proinsulin Lvl 32.0 < OR = 18.8 11/17/2013 HI <sup>14</sup>Result Comment:
This test was performed using a kit that has not
been approved or cleared by the FDA. The
analytical performance characteristics of this
test have been determined by [facility]. This test
should not be used for diagnosis without
confirmation by other medically established means.
Test Performed at:
[facility]
[address] [place] [address]
[place] [address] Ariadne Johnson MD, PhD [facility] CHEMISTRY Insulin Lvl 31.4 11/17/2013 <sup>19</sup>Interpretive Data: Reference Ranges for Insulin after 12-hour fast: 3-19 uIU/mL, a non-fasting range has not been established. [facility] CHEMISTRY C-Peptide 7.14 0.48 - 5.05 11/17/2013 HI [facility] CHEMISTRY Ketone Quantitative 0.08 <=0.27 11/17/2013 Normal [facility] BLOOD BANK RESULTS Antibody Scrn Positive 5 (11/17/2013 10:10:00) 11/17/2013 Normal <sup>5</sup>Result Comment: 11/17/2013 11:54 [id number]
"Significant Findings called to lAejandro Rivers at 11/17/2013 11:54 by [email or web address] Back OK." [facility] BLOOD BANK RESULTS ABO/Rh O POS 11/17/2013 [facility] BLOOD [facility] RESULTS RBC product Product available 6 (11/17/2013 09:22:00) 11/17/2013 Normal <sup>6</sup>Result Comment: 11/17/2013 21:04 [id number]
called gonzalo 11/17/2013 21:04 sb [facility] BEDSIDE GLUCOSE TESTING Gluc POC Com ment 2 Repeat Test 11/17/2013 [facility] CHEMISTRY Aldosterone 4 11/15/2013 <sup>13</sup>Result Comment:
Adult Reference Ranges for Aldosterone,
LC/MS/MS:

Upright 8:00-10:00 am < or = 28 ng/dL
Upright 4:00-6:00 pm < or = 21 ng/dL
Supine 8:00- 10:00 am 3-16 ng/dL
Test Performed at:
[facility]
[address] [place] [address]
[place] [address] Ariadne Johnson MD, PhD [facility] CHEMISTRY Renin Activity 0.68 0.25 - 5.82 11/15/2013 <sup>18</sup>Result Comment: Test Perfor med at:
[facility]
[address] [address] [facility]
[place] [address] Ariadne Johnson MD, PhD [facility] CHEMISTRY ACTH Lvl 12 0 - 46 11/15/2013 Normal [facility] HEMATOLOGY RBC Morph Nicolasa l (11/15/2013 09:47:00) 11/15/2013 Normal [facility] HEMATOLOGY Plt Morph Nicolasa l (11/15/2013 09:47:00) 11/15/2013 Normal [facility] CHEMISTRY TSH 2.940 0.360 - 3.740 11/13/2013 Normal [facility] CHEMISTRY Phosphorus 3.1 2.5 - 4.5 11/12/2013 Normal [facility] CHEMISTRY Magnesium Lvl 1.8 1.8 - 2.4 11/11/2013 Normal [facility] CHEMISTRY Phosphorus 2.8 2.5 - 4.5 11/11/2013 Normal [facility] IMMUNOLOGY Hep Bs Ag Negat sue *NA* (11/10/2013 00:50:29) Negati ve 11/10/2013 [facility] HEMATOLOGY aPTT 35.6 22.9 - 35.8 11/10/2013 Normal <sup>21</sup>Interpretive Data: Heparin Therapeutic Range: 57 - 92 Seconds [facility] HEMATOLOGY PROTIME 13.1 12.0 - 14.7 11/10/2013 Normal [facility] INR 1.00 0.85 - 1.17 11/10/2013 Normal <sup>20</sup>Interpretive Data: RECOMMEN DED RANGES FOR PROTIME INR:
2.0-3.0 for most medical and surgical thromboembolic states.
2.5-3.5 for artificial heart valves and recurrent embolism.

INR SHOULD BE USED ONLY FOR PATIENTS ON STABLE ANTICOAGULANT THERAPY. [facility] CHEMISTRY POC Potassium 2.7 3.5 - 5.1 09/20/2013 CRIT [facility] BEDSIDE GLUCOSE TESTING Glucose POC 99 70 - 99 09/20/2013 Normal <sup>1</sup>Interpretive Data: Upper Reportable Limit: 200 mg/dL. [facility] BEDSIDE GLUCOSE TESTING Gluc POC Com ment 1 Notify RN/ 09/20/2013 [facility] BEDSIDE GLUCOSE TESTING Glucose POC 127 70 - 99 08/10/2013 [place] <sup>2</sup>Interpretive Data: Upper Reportable Limit: 200 mg/dL. [facility] BEDSIDE GLUCOSE TESTING Gluc POC Com ment 1 Notify RN/ 08/10/[address] [facility] [address] CHEMISTRY Sodium Lvl 142 135 - 145 08/10/2013 Normal [facility] CHEMISTRY Chloride Lvl 103 95 - 109 08/10/2013 Normal [facility] CHEMISTRY Potassium Lvl 3.5 3.5 - 5.1 08/10/2013 Normal [facility] CHEMISTRY AGAP 13.5 10.0 - 20.0 08/10/2013 Normal [facility] CHEMISTRY Calcium Lvl 7.9 8.5 - 10.5 08/10/2013 LOW [facility] CHEMISTRY CO2 29 24 - 32 08/10/2013 Normal [facility] CHEMISTRY eGFR 11 08/10/2013 <sup>6</sup>Result Comment: The [...] should be multiplied by the estimated BMI. [facility] CHEMISTRY Creatinine Lvl 4.3 0.5 - 1.4 08/10/2013 HI [facility] CHEMISTRY BUN 6 7 - 22 08/10/2013 LOW [facility] CHEMISTRY Glucose Lvl 107 70 - 99 08/10/2013 [place] <sup>9</sup>Interpretive Data: Adult ref erence range values reflect the clinical guidelines
of the [place] [employer]. [facility] CHEMISTRY Phosphorus 1.4 2.5 - 4.5 08/10/2013 CRIT <sup>12</sup>Result Comment: Critical Re sult(s) called to gi correa at 08/10/2013 07:10 by/annelise. Read back OK. [facility] CHEMISTRY Magnesium Lvl 1.7 1.8 - 2.4 08/10/2013 LOW [facility] BEDSIDE GLUCOSE TESTING Gluc POC Com ment 1 Notify RN/ 08/10/2013 [facility] BEDSIDE GLUCOSE TESTING Glucose POC 126 70 - 99 08/10/2013 [place] <sup>3</sup>Interpretive Data: Upper Reportable Limit: 200 mg/dL. [facility] BEDSIDE GLUCOSE TESTING Glucose POC 56 70 - 99 08/10/2013 LOW <sup>4</sup>Interpretive Data: Upper Reportable Limit: 200 mg/dL. [facility] BEDSIDE GLUCOSE TESTING Gluc POC Com ment 1 Notify RN/ 08/10/2013 [facility] CHEMISTRY Magnesium Lvl 1.7 1.8 - 2.4 08/09/2013 LOW [facility] CHEMISTRY Phosphorus 1.7 2.5 - 4.5 08/09/2013 LOW [facility] CHEMISTRY AGAP 14.2 10.0 - 20.0 08/09/2013 Normal [facility] Calcium Lvl 7.5 8.5 - 10.5 08/09/2013 LOW [facility] CHEMISTRY CO2 27 24 - 32 08/09/2013 Normal [facility] CHEMISTRY eGFR 7 08/09/2013 <sup>7</sup>Result Comment: The [...] should be multiplied by the estimated BMI. [facility] CHEMISTRY BUN 14 7 - 22 08/09/2013 Normal [facility] CHEMISTRY Creatinine Lvl 6.2 0.5 - 1.4 08/09/2013 HI [facility] CHEMISTRY Glucose Lvl 105 70 - 99 08/09/2013 [facility] <sup>10</sup>Interpretive Data: Adult re ference range values reflect the clinical guidelines
of the [place] [employer]. [facility] CHEMISTRY Chloride Lvl 102 95 - 109 08/09/2013 Normal [facility] CHEMISTRY Potassium Lvl 3.2 3.5 - 5.1 08/09/2013 LOW [facility] CHEMISTRY Sodium Lvl 140 135 - 145 08/09/2013 Normal [facility] HEMATOLOGY Platelet 204 133 - 450 08/09/2013 Normal [facility] HEMATOLOGY RDW 16.0 11.5 - 14.5 08/09/2013 [facility] HEMATOLOGY MPV 7.1 7.4 - 10.4 08/09/2013 LOW [facility] HEMATOLOGY WBC X 10x3 5.3 3.7 - 10.4 08/09/2013 Normal [facility] HEMATOLOGY RBC X 10x6 3.16 4.20 - 5.40 08/09/2013 LOW [facility] HEMATOLOGY Hgb 9.5 12.0 - 16.0 08/09/2013 LOW [facility] HEMATOLOGY MCV 92.8 81.0 - 99.0 08/09/2013 Normal [facility] HEMATOLOGY Hct 29.3 36.0 - 48.0 08/09/2013 LOW [facility] HEMATOLOGY MCHC 32.5 32.0 - 36.0 08/09/2013 Normal [facility] HEMATOLOGY MCH 30.1 27.0 - 31.0 08/09/2013 Normal [facility] HEMATOLOGY Lymphocytes # 1.4 1.0 - 5.5 08/09/2013 Normal [facility] HEMATOLOGY Segs 61.0 45.0 - 75.0 08/09/2013 Normal [facility] HEMATOLOGY Eosinophils 3.2 0.0 - 4.0 08/09/2013 Normal [facility] HEMATOLOGY Basophils 0.4 0.0 - 1.0 08/09/2013 Normal [facility] HEMATOLOGY Segs-Bands # 3.3 1.5 - 8.1 08/09/2013 Normal [facility] HEMATOLOGY Monocytes # 0.5 0.0 - 0.8 08/09/2013 Normal [facility] HEMATOLOGY Basophils # 0.0 0.0 - 0.2 08/09/2013 Normal [facility] HEMATOLOGY Eosinophils # 0.2 0.0 - 0.5 08/09/2013 Normal [facility] HEMATOLOGY Lymphocytes 26.3 20.0 - 40.0 08/09/2013 Normal [facility] HEMATOLOGY Monocytes 9.1 2.0 - 12.0 08/09/2013 Normal [facility] CHEMISTRY eGFR 9 08/08/2013 <sup>8</sup>Result Comment: The [...] should be multiplied by the estimated BMI. [facility] CHEMISTRY BUN 12 7 - 22 08/08/2013 Normal [facility] CHEMISTRY Creatinine Lvl 5.3 0.5 - 1.4 08/08/2013 HI [facility] CHEMISTRY CO2 28 24 - 32 08/08/2013 Normal [facility] CHEMISTRY Glucose Lvl 177 70 - 99 08/08/2013 [place] <sup>11</sup>Interpretive Data: Adult re ference range values reflect the clinical guidelines
of the [place] [employer]. [facility] CHEMISTRY AGAP 15.8 10.0 - 20.0 08/08/2013 Normal [facility] CHEMISTRY Calcium Lvl 8.3 8.5 - 10.5 08/08/2013 LOW [facility] CHEMISTRY Chloride Lvl 101 95 - 109 08/08/2013 Normal [facility] CHEMISTRY Sodium Lvl 141 135 - 145 08/08/2013 Normal [facility] CHEMISTRY Potassium Lvl 3.8 3.5 - 5.1 08/08/2013 Normal [facility] STOOL TESTS Fecal Leukocyte None Seen 5 (08/07/2013 20:35:00) 08/08/2013 Normal <sup>5</sup>Interpretive Data: A Value of None Seen, Rare, or Few is Normal. [facility] CHEMISTRY Aluminum 72 <7 08/07/2013 [place] <sup>13</sup>Result [...] potential heavy metal sources.
Refer to the [facility] Directory of
Services forproper specimen collection
information.
Test Performed at:
[facility] [place]
[facility], [address] [place] [address] Road
[place] [address] B Josiah LEE, FCAP [facility] IMMUNOLOGY Hep Bs Ag Negat sue *NA* (08/07/2013 04:32:09) Negati ve 08/07/2013 [facility] CHEMISTRY Phosphorus 3.3 2.5 - 4.5 08/07/2013 Normal [facility] HEMATOLOGY Lymphocytes # 1.3 1.0 - 5.5 08/07/2013 Normal [facility] HEMATOLOGY Monocytes # 0.6 0.0 - 0.8 08/07/2013 Normal [facility] HEMATOLOGY Eosinophils # 0.1 0.0 - 0.5 08/07/2013 Normal [facility] HEMATOLOGY Basophils # 0.0 0.0 - 0.2 08/07/2013 Normal [facility] HEMATOLOGY Segs-Bands # 5.2 1.5 - 8.1 08/07/2013 Normal [facility] HEMATOLOGY Eosinophils 1.8 0.0 - 4.0 08/07/2013 Normal [facility] HEMATOLOGY Basophils 0.2 0.0 - 1.0 08/07/2013 Normal [facility] HEMATOLOGY Lymphocytes 18.1 20.0 - 40.0 08/07/2013 LOW [facility] HEMATOLOGY Monocytes 8.1 2.0 - 12.0 08/07/2013 Normal [facility] HEMATOLOGY Segs 71.8 45.0 - 75.0 08/07/2013 Normal [facility] HEMATOLOGY MPV 6.7 7.4 - 10.4 08/07/2013 LOW [facility] HEMATOLOGY Platelet 179 133 - 450 08/07/2013 Normal [facility] HEMATOLOGY MCHC 32.5 32.0 - 36.0 08/07/2013 [...] Globulin 3.0 2.0 - 4.0 08/06/2013 Normal [facility] CHEMISTRY Albumin Lvl 3.0 3.5 - 5.0 [...] # 3.0 1.5 - 8.1 08/06/2013 Normal [facility] Basophils # 0.0 0.0 - 0.2 08/06/2013 Normal [facility] MCHC 32.8 32.0 - 36.0 08/06/2013 Normal [facility] MCH 30.6 27.0 - 31.0 08/06/2013 Normal [facility] RDW 16.0 11.5 - 14.5 08/06/2013 HI [facility] HEMATOLOGY MPV 6.8 7.4 - 10.4 08/06/2013 LOW [facility] Platelet 206 133 - 450 08/06/2013 Normal [facility] WBC X 10x3 5.5 3.7 - 10.4 08/06/2013 Normal [facility] Hct 29.4 36.0 - 48.0 08/06/2013 LOW [facility] MCV 93.2 81.0 - 99.0 08/06/2013 Normal [facility] RBC X 10x6 3.15 4.20 - 5.40 08/06/2013 LOW [facility] Hgb 9.6 12.0 - 16.0 08/06/2013 LOW [facility] aPTT 24.2 22.9 - 35.8 08/06/2013 Normal <sup>16</sup>Interpretive Data: Heparin Therapeutic Range: 57 - 92 Seconds [facility] PROTIME 14.2 12.0 - 14.7 08/06/2013 Normal [facility] INR 1.11 0.85 - 1.17 08/06/2013 Normal <sup>14</sup>Interpretive Data: RECOMMEN DED RANGES FOR PROTIME INR:
2.0-3.0 for most medical and surgical thromboembolic states.
2.5-3.5 for artificial heart valves and recurrent embolism.

INR SHOULD BE USED ONLY FOR PATIENTS ON STABLE ANTICOAGULANT THERAPY. [facility] INFECTIOUS DISEASES C difficile DNA Negative 1 (08/05/2013 21:00:00) Negati ve 08/06/2013 Normal <sup>1</sup>Interpretive Data: [employer] illumigene Clostridium difficile assay utilizes loop-mediated isothermal DNA amplification (LAMP) technology to detect a 204 bp region of the tcdA gene within the PaLoc gene segment present in all known toxigenic C. difficile strains.

The assay utilizes FDA cleared IVD reagents. Performance characteristics have been verified by the [facility] within the [facility]. The [facility] is authorized under the Clinical Laboratory Improvement Amendment of 1988 (CLIA-88) to perform high complexity testing. [facility] STOOL TESTS Occult Bld Stl Nega tive (08/05/2013 21:00:00) Negati ve 08/06/2013 Normal [facility] CHEMISTRY B/C Ratio 3 6 - 25 08/05/2013 LOW [facility] CHEMISTRY A/G Ratio 0.9 0.7 - 1.6 08/05/2013 Normal [facility] CHEMISTRY Globulin 3.7 2.0 - 4.0 08/05/2013 Normal [facility] CHEMISTRY ALANINE AMINOTRANSFERASE 4 6 0 - 65 08/05/2013 Normal [facility] CHEMISTRY Albumin Lvl 3.5 3.5 - 5.0 08/05/2013 Normal [facility] CHEMISTRY Total Protein 7.2 6.4 - 8.4 08/05/2013 Normal [facility] CHEMISTRY Alk Phos 149 39 - 136 08/05/2013 HI [facility] CHEMISTRY Bili Total 0.5 0.2 - 1.3 08/05/2013 Normal [facility] CHEMISTRY ASPARTATE TRANSAMINASE 31 0 - 37 08/05/2013 Normal [facility] CHEMISTRY Magnesium Lvl 1.8 1.8 - 2.4 08/05/2013 Normal [facility] CHEMISTRY S Preg Negati ve *NA* (08/05/2013 07:50:00) Negati ve 08/05/2013 [facility] HEMATOLOGY INR 1.00 0.85 - 1.17 08/05/2013 Normal <sup>15</sup>Interpretive Data: RECOMMEN DED RANGES FOR PROTIME INR:
2.0-3.0 for most medical and surgical thromboembolic states.
2.5-3.5 for artificial heart valves and recurrent embolism.

INR SHOULD BE USED ONLY FOR PATIENTS ON STABLE ANTICOAGULANT THERAPY. [facility] HEMATOLOGY aPTT 31.6 22.9 - 35.8 08/05/2013 Normal <sup>17</sup>Interpretive Data: Heparin Therapeutic Range: 57 - 92 Seconds [facility] HEMATOLOGY PROTIME 13.1 12.0 - 14.7 08/05/2013 Normal [facility] CHEMISTRY Chloride Lvl 103 95 - 109 08/03/2013 Normal [facility] CHEMISTRY Potassium Lvl 3.4 3.5 - 5.1 08/03/2013 LOW [facility] CHEMISTRY Sodium Lvl 141 135 - 145 08/03/2013 Normal [facility] CHEMISTRY eGFR 9 08/03/2013 <sup>1</sup>Result Comment: The [...] should be multiplied by the estimated BMI. [facility] CHEMISTRY Alk Phos 159 39 - 136 08/03/2013 HI [facility] CHEMISTRY ALANINE AMINOTRANSFERASE 3 9 0 - 65 08/03/2013 Normal [facility] CHEMISTRY Calcium Lvl 8.9 8.5 - 10.5 08/03/2013 Normal [facility] CHEMISTRY Albumin Lvl 3.6 3.5 - 5.0 08/03/2013 Normal [facility] CHEMISTRY Total Protein 7.6 6.4 - 8.4 08/03/2013 Normal [facility] CHEMISTRY Bili Total 0.5 0.2 - 1.3 08/03/2013 Normal [facility] CHEMISTRY B/C Ratio 2 6 - 25 08/03/2013 LOW [facility] CHEMISTRY AGAP 13.4 10.0 - 20.0 08/03/2013 Normal [facility] CHEMISTRY ASPARTATE TRANSAMINASE 28 0 - 37 08/03/2013 Normal [facility] CHEMISTRY Globulin 4.0 2.0 - 4.0 08/03/2013 Normal [facility] CHEMISTRY A/G Ratio 0.9 0.7 - 1.6 08/03/2013 Normal [facility] CHEMISTRY Creatinine Lvl 5.4 0.5 - 1.4 08/03/[address] [facility] CHEMISTRY BUN 12 7 - 22 08/03/2013 Normal [facility] CHEMISTRY CO2 28 24 - 32 08/03/2013 Normal [facility] CHEMISTRY Glucose Lvl 57 70 - 99 08/03/2013 LOW <sup>2</sup>Interpretive Data: Adult ref erence range values reflect the clinical guidelines
of the [place] [employer]. [facility] CHEMISTRY Lipase Lvl 108 73 - 393 08/03/2013 Normal [facility] CHEMISTRY Total CK 31 12 - 191 08/03/2013 Normal [facility] CHEMISTRY Troponin-I <0.02 0.00 - 0.40 08/03/2013 Normal [facility] CHEMISTRY CK MB 0.6 0.5 - 3.6 08/03/2013 Normal [facility] CHEMISTRY CK-MB INDEX 1.9 0.0 - 2.5 08/03/2013 Normal [facility] HEMATOLOGY Hgb 11.5 12.0 - 16.0 08/03/2013 LOW [facility] HEMATOLOGY RBC X 10x6 3.82 4.20 - 5.40 08/03/2013 LOW [facility] HEMATOLOGY WBC X 10x3 7.3 3.7 - 10.4 08/03/2013 Normal [facility] HEMATOLOGY MPV 6.7 7.4 - 10.4 08/03/2013 LOW [facility] HEMATOLOGY Platelet 266 133 - 450 08/03/2013 Normal [facility] HEMATOLOGY MCV 93.8 81.0 - 99.0 08/03/2013 Normal [facility] HEMATOLOGY Hct 35.8 36.0 - 48.0 08/03/2013 LOW [facility] HEMATOLOGY RDW 15.7 11.5 - 14.5 08/03/2013 HI [facility] HEMATOLOGY MCHC 32.2 32.0 - 36.0 08/03/2013 Normal [facility] HEMATOLOGY MCH 30.2 27.0 - 31.0 08/03/2013 Normal [facility] HEMATOLOGY Monocytes 9.3 2.0 - 12.0 08/03/2013 Normal [facility] HEMATOLOGY Eosinophils 0.5 0.0 - 4.0 08/03/2013 Normal [facility] HEMATOLOGY Basophils 0.4 0.0 - 1.0 08/03/2013 Normal [facility] HEMATOLOGY Segs 72.4 45.0 - 75.0 08/03/2013 Normal [facility] HEMATOLOGY Lymphocytes 17.4 20.0 - 40.0 08/03/2013 LOW [facility] HEMATOLOGY Monocytes # 0.7 0.0 - 0.8 08/03/2013 Normal [facility] HEMATOLOGY Eosinophils # 0.0 0.0 - 0.5 08/03/2013 Normal [facility] HEMATOLOGY Basophils # 0.0 0.0 - 0.2 08/03/2013 Normal [facility] HEMATOLOGY Segs-Bands # 5.3 1.5 - 8.1 08/03/2013 Normal [facility] HEMATOLOGY Lymphocytes # 1.3 1.0 - 5.5 08/03/2013 Normal [facility] BEDSIDE GLUCOSE TESTING Glucose POC 186 70 - 99 07/30/2013 HI <sup>2</sup>Interpretive Data: Upper Reportable Limit: 200 mg/dL. [facility] BEDSIDE GLUCOSE TESTING Gluc POC Com ment 1 Notify RN/ 07/30/2013 [facility] BEDSIDE GLUCOSE TESTING Glucose POC 93 70 - 99 07/30/2013 Normal <sup>3</sup>Interpretive Data: Upper Reportable Limit: 200 mg/dL. [facility] BEDSIDE GLUCOSE TESTING Gluc POC Com ment 1 Notify RN/ 07/30/2013 [facility] BEDSIDE GLUCOSE TESTING Gluc POC Com ment 1 Notify RN/ 07/30/2013 [facility] BEDSIDE GLUCOSE TESTING Glucose POC 114 70 - 99 07/30/2013 HI <sup>4</sup>Interpretive Data: Upper Reportable Limit: 200 mg/dL. [facility] CHEMISTRY eGFR 7 07/28/2013 <sup>5</sup>Result Comment: The [...] should be multiplied by the estimated BMI. [facility] CHEMISTRY Calcium Lvl 7.7 8.5 - 10.5 07/28/2013 LOW [facility] CHEMISTRY Glucose Lvl 59 70 - 99 07/28/2013 LOW <sup>8</sup>Interpretive Data: Adult ref erence range values reflect the clinical guidelines
of the [place] [employer]. [facility] CHEMISTRY Creatinine Lvl 6.1 0.5 - 1.4 07/28/2013 [facility] CHEMISTRY BUN 14 7 - 22 07/28/2013 Normal [facility] CHEMISTRY AGAP 14.7 10.0 - 20.0 07/28/2013 Normal [facility] CHEMISTRY CO2 28 24 - 32 07/28/2013 Normal [facility] CHEMISTRY Sodium Lvl 143 135 - 145 07/28/2013 Normal [facility] CHEMISTRY Potassium Lvl 3.7 3.5 - 5.1 07/28/2013 Normal [facility] CHEMISTRY Chloride Lvl 104 95 - 109 07/28/2013 Normal [facility] CHEMISTRY Lipase Lvl 165 73 - 393 07/28/2013 Normal [facility] CHEMISTRY LDL CHOLESTEROL 55 <=99 07/28/2013 Normal [facility] CHEMISTRY Chol 152 <=199 07/28/2013 Normal [facility] CHEMISTRY Trig 287 <=149 07/28/2013 [facility] CHEMISTRY HDL 40 >=61 07/28/2013 LOW [facility] CHEMISTRY CHD Risk 3.80 3.90 - 5.80 07/28/2013 LOW [facility] HEMATOLOGY MPV 6.9 7.4 - 10.4 07/28/2013 LOW [facility] HEMATOLOGY Platelet 186 133 - 450 07/28/2013 Normal [facility] HEMATOLOGY RDW 15.2 11.5 - 14.5 07/28/[address] [facility] HEMATOLOGY MCHC 32.4 32.0 - 36.0 07/28/2013 Normal [facility] HEMATOLOGY MCH 30.3 27.0 - 31.0 07/28/2013 Normal [facility] HEMATOLOGY MCV 93.7 81.0 - 99.0 07/28/2013 Normal [facility] HEMATOLOGY Hgb 9.4 12.0 - 16.0 07/28/2013 LOW [facility] HEMATOLOGY Hct 29.0 36.0 - 48.0 07/28/2013 LOW [facility] HEMATOLOGY RBC X 10x6 3.09 4.20 - 5.40 07/28/2013 LOW [facility] HEMATOLOGY WBC X 10x3 6.0 3.7 - 10.4 07/28/2013 Normal [facility] HEMATOLOGY Eosinophils # 0.3 0.0 - 0.5 07/28/2013 Normal [facility] HEMATOLOGY Basophils # 0.0 0.0 - 0.2 07/28/2013 Normal [facility] HEMATOLOGY Monocytes # 0.6 0.0 - 0.8 07/28/2013 Normal [facility] HEMATOLOGY Lymphocytes 34.3 20.0 - 40.0 07/28/2013 Normal [facility] HEMATOLOGY Monocytes 9.5 2.0 - 12.0 07/28/2013 Normal [facility] HEMATOLOGY Lymphocytes # 2.0 1.0 - 5.5 07/28/2013 Normal [facility] HEMATOLOGY Basophils 0.5 0.0 - 1.0 07/28/2013 Normal [facility] HEMATOLOGY Segs-Bands # 3.0 1.5 - 8.1 07/28/2013 Normal [facility] HEMATOLOGY Eosinophils 5.0 0.0 - 4.0 07/28/2013 HI [facility] HEMATOLOGY Segs 50.7 45.0 - 75.0 07/28/2013 Normal [facility] CHEMISTRY Lipase Lvl 251 73 - 393 07/27/2013 Normal [facility] CHEMISTRY Chloride Lvl 105 95 - 109 07/27/2013 Normal [facility] CHEMISTRY Potassium Lvl 3.6 3.5 - 5.1 07/27/2013 Normal [facility] CHEMISTRY Sodium Lvl 144 135 - 145 07/27/2013 Normal [facility] CHEMISTRY eGFR 11 07/27/2013 <sup>6</sup>Result Comment: The [...] should be multiplied by the estimated BMI. [facility] CHEMISTRY Creatinine Lvl 4.3 0.5 - 1.4 07/27/[address] [facility] CHEMISTRY Calcium Lvl 8.0 8.5 - 10.5 07/27/2013 LOW [facility] CHEMISTRY CO2 28 24 - 32 07/27/2013 Normal [facility] CHEMISTRY AGAP 14.6 10.0 - 20.0 07/27/2013 Normal [facility] CHEMISTRY Glucose Lvl 69 70 - 99 07/27/2013 LOW <sup>9</sup>Interpretive Data: Adult ref erence range values reflect the clinical guidelines
of the [place] [employer]. [facility] CHEMISTRY BUN 9 7 - 22 07/27/2013 Normal [facility] INFECTIOUS DISEASES C difficile DNA Negative 1 (07/26/2013 17:28:33) Negati ve 07/26/2013 Normal <sup>1</sup>Interpretive Data: [employer] illumigene Clostridium difficile assay utilizes loop-mediated isothermal DNA amplification (LAMP) technology to detect a 204 bp region of the tcdA gene within the PaLoc gene segment present in all known toxigenic C. difficile strains.

The assay utilizes FDA cleared IVD reagents. Performance characteristics have been verified by the Molecular Diagnostic Laboratory within the [facility]. The [facility] Diagnostic Laboratory is authorized under the Clinical Laboratory Improvement Amendment of 1988 (CLIA-88) to perform high complexity testing. [facility] CHEMISTRY Calcium Lvl 7.0 8.5 - 10.5 07/26/2013 CRIT <sup>11</sup>Result Comment: Critical Re sult(s) called to seth plasencia at 07/26/2013 06:17 byemw . Read back OK. [facility] CHEMISTRY eGFR 7 07/26/2013 <sup>7</sup>Result Comment: The [...] should be multiplied by the estimated BMI. [facility] CHEMISTRY AGAP 17.2 10.0 - 20.0 07/26/2013 Normal [facility] CHEMISTRY CO2 23 24 - 32 07/26/2013 LOW [facility] CHEMISTRY Chloride Lvl 109 95 - 109 07/26/2013 Normal [facility] CHEMISTRY Potassium Lvl 3.2 3.5 - 5.1 07/26/2013 [facility] CHEMISTRY Sodium Lvl 146 135 - 145 07/26/[address] [facility] CHEMISTRY Creatinine Lvl 6.0 0.5 - 1.4 07/26/2013 [facility] CHEMISTRY BUN 19 7 - 22 07/26/2013 Normal [facility] CHEMISTRY Glucose Lvl 101 70 - 99 07/26/2013 [place] <sup>10</sup>Interpretive Data: Adult re ference range values reflect the clinical guidelines
of the [place] [employer]. [facility] HEMATOLOGY Hgb 8.9 12.0 - 16.0 07/26/2013 [facility] HEMATOLOGY MCV 91.7 81.0 - 99.0 07/26/2013 Normal [facility] HEMATOLOGY Hct 27.5 36.0 - 48.0 07/26/2013 [facility] HEMATOLOGY MCHC 32.2 32.0 - 36.0 07/26/2013 Normal [facility] HEMATOLOGY MCH 29.5 27.0 - 31.0 07/26/2013 Normal [facility] HEMATOLOGY RDW 15.0 11.5 - 14.5 07/26/[address] [facility] HEMATOLOGY MPV 6.7 7.4 - 10.4 07/26/2013 [facility] HEMATOLOGY Platelet 184 133 - 450 07/26/2013 Normal [facility] HEMATOLOGY RBC X 10x6 3.00 4.20 - 5.40 07/26/2013 [facility] HEMATOLOGY WBC X 10x3 5.5 3.7 - 10.4 07/26/2013 Normal [facility] HEMATOLOGY Segs 58.9 45.0 - 75.0 07/26/2013 Normal [facility] HEMATOLOGY Basophils # 0.0 0.0 - 0.2 07/26/2013 Normal [facility] HEMATOLOGY Eosinophils # 0.2 0.0 - 0.5 07/26/2013 Normal [facility] HEMATOLOGY Monocytes # 0.6 0.0 - 0.8 07/26/2013 Normal [facility] HEMATOLOGY Lymphocytes 26.7 20.0 - 40.0 07/26/2013 Normal [facility] HEMATOLOGY Monocytes 10.2 2.0 - 12.0 07/26/2013 Normal [facility] HEMATOLOGY Eosinophils 3.8 0.0 - 4.0 07/26/2013 Normal [facility] HEMATOLOGY Segs-Bands # 3.3 1.5 - 8.1 07/26/2013 Normal [facility] HEMATOLOGY Basophils 0.4 0.0 - 1.0 07/26/2013 Normal [facility] HEMATOLOGY Lymphocytes # 1.5 1.0 - 5.5 07/26/2013 Normal [facility] CHEMISTRY Lipase Lvl 296 73 - 393 07/25/2013 Normal [facility] CHEMISTRY LDL CHOLESTEROL See No te mg/dL <=99 07/25/2013 <sup>12</sup>Result Comment: LDL cholest kita cannot be calculated due to very high triglycerides (>400 mg/dL). Recommend Direct LDL if clinically indicated. [facility] CHEMISTRY CHD Risk 6.12 3.90 - 5.80 07/25/2013 [facility] CHEMISTRY HDL 32 >=61 07/25/2013 LOW [facility] CHEMISTRY Trig 405 <=149 07/25/2013 [facility] CHEMISTRY Chol 196 <=199 07/25/2013 Normal [facility] CHEMISTRY ALANINE AMINOTRANSFERASE 8 3 0 - 65 07/25/2013 [facility] CHEMISTRY B/C Ratio 2 6 - 25 07/25/2013 LOW [facility] CHEMISTRY Total Protein 6.9 6.4 - 8.4 07/25/2013 Normal [facility] CHEMISTRY Alk Phos 165 39 - 136 07/25/2013 [facility] CHEMISTRY Albumin Lvl 3.3 3.5 - 5.0 07/25/2013 LOW [facility] CHEMISTRY Bili Total 0.6 0.2 - 1.3 07/25/2013 Normal [facility] CHEMISTRY ASPARTATE TRANSAMINASE 47 0 - 37 07/25/2013 [facility] CHEMISTRY Globulin 3.6 2.0 - 4.0 07/25/2013 Normal [facility] CHEMISTRY A/G Ratio 0.9 0.7 - 1.6 07/25/2013 Normal [facility] HEMATOLOGY Basophils # 0.0 0.0 - 0.2 07/25/2013 Normal [facility] HEMATOLOGY Eosinophils # 0.2 0.0 - 0.5 07/25/2013 Normal [facility] HEMATOLOGY Monocytes # 0.8 0.0 - 0.8 07/25/2013 Normal [facility] HEMATOLOGY Lymphocytes # 1.4 1.0 - 5.5 07/25/2013 Normal [facility] HEMATOLOGY Segs-Bands # 4.0 1.5 - 8.1 07/25/2013 Normal [facility] HEMATOLOGY Basophils 0.2 0.0 - 1.0 07/25/2013 Normal [facility] HEMATOLOGY Monocytes 12.5 2.0 - 12.0 07/25/2013 [facility] HEMATOLOGY Lymphocytes 21.2 20.0 - 40.0 07/25/2013 Normal [facility] HEMATOLOGY Segs 62.8 45.0 - 75.0 07/25/2013 Normal [facility] HEMATOLOGY Eosinophils 3.3 0.0 - 4.0 07/25/2013 Normal [facility] HEMATOLOGY RDW 15.4 11.5 - 14.5 07/25/2013 [facility] HEMATOLOGY Platelet 209 133 [...] ASPARTATE TRANSAMINASE 41 0 - 37 07/24/2013 [facility] CHEMISTRY Alk Phos 211 39 - 136 07/24/2013 [facility] CHEMISTRY ALANINE AMINOTRANSFERASE 1 13 0 - 65 07/24/2013 [facility] CHEMISTRY Albumin Lvl 3.4 3.5 - 5.0 07/24/2013 LOW [facility] CHEMISTRY Total Protein 7.9 6.4 - 8.4 07/24/2013 Normal [facility] CHEMISTRY A/G Ratio 0.8 0.7 - 1.6 07/24/2013 Normal [facility] CHEMISTRY B/C Ratio 4 6 - 25 07/24/2013 LOW [facility] CHEMISTRY Globulin 4.5 2.0 - 4.0 07/24/2013 [facility] CHEMISTRY Amylase Lvl 212 25 - 115 07/24/2013 [facility] CHEMISTRY Troponin-I <0.02 0.00 - 0.40 07/24/2013 Normal [facility] CHEMISTRY CK MB <0.5 0.5 - 3.6 07/24/2013 Normal [facility] CHEMISTRY Total CK 24 12 - 191 07/24/2013 Normal [facility] HEMATOLOGY RBC Morph Nicolasa l (07/24/2013 06:45:00) 07/24/2013 Normal [facility] HEMATOLOGY Plt Morph Nicolasa l (07/24/2013 06:45:00) 07/24/2013 Normal [facility] IMMUNOLOGY Hep Bs Ag Negat sue *NA* (07/24/2013 06:45:00) Negati ve 07/24/2013 [facility] CHEMISTRY Magnesium Lvl 2.2 1.8 - 2.4 07/03/2013 Normal [facility] CHEMISTRY Phosphorus 7.3 2.5 - 4.5 07/03/2013 [facility] CHEMISTRY AGAP 22.7 10.0 - 20.0 07/03/2013 [facility] CHEMISTRY eGFR 4 07/03/2013 NA <sup>4</sup>Result [...] should be multiplied by the estimated BMI. [facility] CHEMISTRY CO2 20 24 - 32 07/03/2013 LOW [facility] CHEMISTRY Calcium Lvl 8.2 8.5 - 10.5 07/03/2013 LOW [facility] CHEMISTRY Potassium Lvl 4.7 3.5 - 5.1 07/03/2013 Normal [facility] CHEMISTRY Chloride Lvl 98 95 - 109 07/03/2013 Normal [facility] CHEMISTRY Glucose Lvl 120 70 - 99 07/03/2013 [facility] <sup>7</sup>Interpretive Data: Adult ref erence range values reflect the clinical guidelines
of the [place] [employer]. [facility] CHEMISTRY BUN 65 7 - 22 07/03/2013 [facility] CHEMISTRY Creatinine Lvl 10.3 0.5 - 1.4 07/03/2013 [facility] CHEMISTRY Sodium Lvl 136 135 - 145 07/03/2013 [facility] HEMATOLOGY MPV 7.3 7.4 - 10.4 07/03/2013 [facility] HEMATOLOGY Platelet 282 133 - 450 07/03/2013 [facility] HEMATOLOGY MCH 30.2 27.0 - 31.0 07/03/2013 [facility] HEMATOLOGY MCHC 32.5 32.0 - 36.0 07/03/2013 [facility] HEMATOLOGY MCV 93.1 81.0 - 99.0 07/03/2013 [facility] HEMATOLOGY RDW 15.0 11.5 - 14.5 07/03/2013 [facility] HEMATOLOGY Hct 33.2 36.0 - 48.0 07/03/2013 [facility] HEMATOLOGY WBC 8.7 3.7 - 10.4 07/03/2013 [facility] HEMATOLOGY Hgb 10.8 12.0 - 16.0 07/03/2013 [facility] HEMATOLOGY RBC 3.56 4.20 - 5.40 07/03/2013 [facility] HEMATOLOGY Lymphocytes # 1.4 1.0 - 5.5 07/03/2013 [facility] HEMATOLOGY Monocytes # 0.7 0.0 - 0.8 07/03/2013 [facility] HEMATOLOGY Segs-Bands # 6.4 1.5 - 8.1 07/03/2013 [facility] HEMATOLOGY Basophils 0.4 0.0 - 1.0 07/03/2013 [facility] HEMATOLOGY Eosinophils # 0.2 0.0 - 0.5 07/03/2013 [facility] HEMATOLOGY Eosinophils 2.1 0.0 - 4.0 07/03/2013 [facility] HEMATOLOGY Monocytes 8.1 2.0 - 12.0 07/03/2013 [facility] HEMATOLOGY Lymphocytes 15.9 20.0 - 40.0 07/03/2013 [facility] HEMATOLOGY Segs 73.5 45.0 - 75.0 07/03/2013 Normal [facility] BEDSIDE GLUCOSE TESTING Gluc POC Lif scn 122 70 - 99 07/03/2013 HI <sup>1</sup>Interpretive Data: Upper Reportable Limit: 200 mg/dL. [facility] BEDSIDE GLUCOSE TESTING Comment1 Notify RN/ 07/03/2013 NA [facility] BEDSIDE GLUCOSE TESTING Gluc POC Lif scn 158 70 - 99 07/02/2013 [facility] <sup>2</sup>Interpretive Data: Upper Reportable Limit: 200 mg/dL. [facility] BEDSIDE GLUCOSE TESTING Comment1 Notify RN/ 07/02/2013 NA [facility] BEDSIDE GLUCOSE TESTING Comment1 Notify RN/ 07/02/2013 NA [facility] BEDSIDE GLUCOSE TESTING Gluc POC Lif scn 141 70 - 99 07/02/2013 [facility] <sup>3</sup>Interpretive Data: Upper Reportable Limit: 200 mg/dL. [facility] CHEMISTRY Phosphorus 7.3 2.5 - 4.5 06/30/2013 [facility] CHEMISTRY AGAP 24.5 10.0 - 20.0 06/30/2013 HI [facility] CHEMISTRY eGFR 5 06/30/2013 NA <sup>5</sup>Result [...] should be multiplied by the estimated BMI. [facility] CHEMISTRY CO2 21 24 - 32 06/30/2013 LOW [facility] CHEMISTRY Chloride Lvl 95 95 - 109 06/30/2013 Normal [facility] CHEMISTRY Potassium Lvl 4.5 3.5 - 5.1 06/30/2013 Normal [facility] CHEMISTRY Glucose Lvl 116 70 - 99 06/30/2013 [facility] <sup>8</sup>Interpretive Data: Adult ref erence range values reflect the clinical guidelines
of the [place] [employer]. [facility] CHEMISTRY Sodium Lvl 136 135 - 145 06/30/2013 Normal [facility] CHEMISTRY Creatinine Lvl 8.0 0.5 - 1.4 06/30/2013 [facility] CHEMISTRY BUN 43 7 - 22 06/30/2013 [facility] CHEMISTRY Calcium Lvl 8.9 8.5 - 10.5 06/30/2013 [facility] CHEMISTRY Magnesium Lvl 2.2 1.8 - 2.4 06/30/2013 [facility] HEMATOLOGY Monocytes 9.4 2.0 - 12.0 06/30/2013 [facility] HEMATOLOGY Lymphocytes 16.7 20.0 - 40.0 06/30/2013 [facility] HEMATOLOGY Segs-Bands # 5.7 1.5 - 8.1 06/30/2013 [facility] HEMATOLOGY Lymphocytes # 1.4 1.0 - 5.5 06/30/2013 [facility] HEMATOLOGY Segs 69.4 45.0 - 75.0 06/30/2013 [facility] HEMATOLOGY Eosinophils 4.1 0.0 - 4.0 06/30/2013 [facility] HEMATOLOGY Basophils 0.4 0.0 - 1.0 06/30/2013 [facility] HEMATOLOGY Eosinophils # 0.3 0.0 - 0.5 06/30/2013 [facility] HEMATOLOGY Monocytes # 0.8 0.0 - 0.8 06/30/2013 [facility] HEMATOLOGY MPV 7.5 7.4 - 10.4 06/30/2013 [facility] HEMATOLOGY RDW 15.8 11.5 - 14.5 06/30/2013 [facility] HEMATOLOGY MCHC 32.5 32.0 - 36.0 06/30/2013 [facility] HEMATOLOGY Hct 32.2 36.0 - 48.0 06/30/2013 [facility] HEMATOLOGY MCV 93.0 81.0 - 99.0 06/30/2013 [facility] HEMATOLOGY RBC 3.46 4.20 - 5.40 06/30/2013 [facility] HEMATOLOGY MCH 30.2 27.0 - 31.0 06/30/2013 Normal [facility] HEMATOLOGY Hgb 10.5 12.0 - 16.0 06/30/2013 [facility] HEMATOLOGY Platelet 267 133 - 450 06/30/2013 Normal [facility] HEMATOLOGY WBC 8.3 3.7 - 10.4 06/30/2013 Normal [facility] CHEMISTRY eGFR 9 06/29/2013 NA <sup>6</sup>Result [...] should be multiplied by the estimated BMI. [facility] CHEMISTRY Chloride Lvl 96 95 - 109 06/29/2013 Normal [facility] CHEMISTRY CO2 24 24 - 32 06/29/2013 Normal [facility] CHEMISTRY Potassium Lvl 4.5 3.5 - 5.1 06/29/2013 Normal [facility] CHEMISTRY Sodium Lvl 134 135 - 145 06/29/2013 LOW [facility] CHEMISTRY BUN 17 7 - 22 06/29/2013 [facility] CHEMISTRY Creatinine Lvl 5.0 0.5 - 1.4 06/29/2013 [facility] CHEMISTRY Glucose Lvl 128 70 - 99 06/29/2013 [facility] <sup>9</sup>Interpretive Data: Adult ref erence range values reflect the clinical guidelines
of the [place] [employer]. [facility] CHEMISTRY Calcium Lvl 8.6 8.5 - 10.5 06/29/2013 [facility] CHEMISTRY AGAP 18.5 10.0 - 20.0 06/29/2013 [facility] HEMATOLOGY RBC 3.43 4.20 - 5.40 06/29/2013 [facility] HEMATOLOGY WBC 7.3 3.7 - 10.4 06/29/2013 [facility] HEMATOLOGY MPV 7.5 7.4 - 10.4 06/29/2013 [facility] HEMATOLOGY MCV 93.7 81.0 - 99.0 06/29/2013 [facility] HEMATOLOGY RDW 15.6 11.5 - 14.5 06/29/2013 [facility] HEMATOLOGY Platelet 241 133 - 450 06/29/2013 [facility] HEMATOLOGY MCHC 33.5 32.0 - 36.0 06/29/2013 [facility] HEMATOLOGY MCH 31.4 27.0 - 31.0 06/29/2013 [facility] HEMATOLOGY Hgb 10.8 12.0 - 16.0 06/29/2013 [facility] HEMATOLOGY Hct 32.1 36.0 - 48.0 06/29/2013 [facility] HEMATOLOGY Lymphocytes 12.7 20.0 - 40.0 06/29/2013 [facility] HEMATOLOGY Segs 75.7 45.0 - 75.0 06/29/2013 [facility] HEMATOLOGY Monocytes # 0.5 0.0 - 0.8 06/29/2013 [facility] HEMATOLOGY Eosinophils # 0.3 0.0 - 0.5 06/29/2013 [facility] HEMATOLOGY Lymphocytes # 0.9 1.0 - 5.5 06/29/2013 [facility] HEMATOLOGY Eosinophils 4.5 0.0 - 4.0 06/29/2013 [facility] HEMATOLOGY Segs-Bands # 5.6 1.5 - 8.1 06/29/2013 [facility] HEMATOLOGY Basophils 0.3 0.0 - 1.0 06/29/2013 [facility] HEMATOLOGY Monocytes 6.8 2.0 - 12.0 06/29/2013 [facility] HEMATOLOGY PTT 66.6 22.9 - 35.8 06/29/2013 [facility] <sup>11</sup>Interpretive Data: Heparin Therapeutic Range: 57 - 92 Seconds [facility] HEMATOLOGY PT 13.8 12.0 - 14.7 06/29/2013 Normal [facility] HEMATOLOGY INR 1.07 0.85 - 1.17 06/29/2013 Normal <sup>10</sup>Interpretive Data: RECOMMEN DED RANGES FOR PROTIME INR:
2.0-3.0 for most medical and surgical thromboembolic states.
2.5-3.5 for artificial heart valves and recurrent embolism.

INR SHOULD BE USED ONLY FOR PATIENTS ON STABLE ANTICOAGULANT THERAPY. [facility] CHEMISTRY Phosphorus 6.3 2.5 - 4.5 06/28/2013 HI [facility] CHEMISTRY Magnesium Lvl 2.0 1.8 - 2.4 06/28/2013 Normal [facility] IMMUNOLOGY Hep C Ab Negat sue *NA* (06/23/2013 08:14:00) Negati ve 06/23/2013 NA [facility] IMMUNOLOGY Hep Bs Ag Negat sue *NA* (06/23/2013 08:14:00) Negati ve 06/23/2013 NA [facility] IMMUNOLOGY Hep Bs Ab <3.1 <=7.4 06/23/2013 Normal <sup>12</sup>Interpretive Data: <=7.4 mI U/mL--------Negative for Anti- HBs. Not immune to HBV infection.

7.5-12.4 mIU/mL--Borderline for Anti- HBs and immune status
should be further assessed by considering other factors such
as clinical status follow-up testing, associated risk factors,
and the use of additional diagnostic information.

>12.4 mIU/mL-------Positive for Anti-HBs. Immune to HBV infection [facility] IMMUNOLOGY Hep B Core IgM Negat sue *NA* (06/23/2013 08:14:00) Negati ve 06/23/2013 NA [facility] IMMUNOLOGY Hep B Core Ab Negat sue *NA* (06/23/2013 08:14:00) Negati ve 06/23/2013 NA [facility] HEMATOLOGY Anisocyte 1+ *ABN* (06/23/2013 01:54:00) None S een 06/23/2013 ABN [facility] HEMATOLOGY Plt Morph Nicolasa l (06/23/2013 01:54:00) 06/23/2013 Normal [facility] CHEMISTRY Potassium WB 5.7 3.5 - 5.1 06/22/2013 [facility] BLOOD BANK RESULTS ABO/Rh O POS 06/22/2013 Unknown [facility] BLOOD BANK RESULTS Antibody Scrn Negative (06/22/2013 07:45:00) 06/22/2013 Normal [facility] CHEMISTRY AST 44 0 - 37 06/13/2013 [facility] CHEMISTRY Total Protein 7.9 6.4 - 8.4 06/13/2013 Normal [facility] CHEMISTRY Bili Total 0.3 0.2 - 1.3 06/13/2013 Normal [facility] CHEMISTRY Albumin Lvl 3.7 3.5 - 5.0 06/13/2013 Normal [facility] CHEMISTRY Alk Phos 242 39 - 136 06/13/2013 [facility] CHEMISTRY ALT 57 0 - 65 06/13/2013 Normal [facility] CHEMISTRY Globulin 4.2 2.0 - 4.0 06/13/2013 [facility] CHEMISTRY B/C Ratio 9 6 - 25 06/13/2013 Normal [facility] CHEMISTRY A/G Ratio 0.9 0.7 - 1.6 06/13/2013 Normal [facility] CHEMISTRY POC Potassium 5.2 3.5 - 5.1 02/23/2013 [facility] BEDSIDE GLUCOSE TESTING Gluc POC Lif scn 171 70 - 99 02/23/2013 [facility] <sup>1</sup>Interpretive Data: Upper Reportable Limit: 200 mg/dL. [facility] CHEMISTRY Phosphorus 5.2 2.5 - 4.5 01/12/[address] [facility] CHEMISTRY B/C Ratio 7 6 - 25 01/12/2013 Normal [facility] CHEMISTRY AGAP 18.4 10.0 - 20.0 01/12/2013 Normal [facility] CHEMISTRY Globulin 5.4 2.0 - 4.0 01/12/[address] [facility] CHEMISTRY A/G Ratio 0.7 0.7 - 1.6 01/12/2013 Normal [facility] CHEMISTRY eGFR 7 01/12/2013 NA <sup>1</sup>Result Comment: [...] should be multiplied by the estimated BMI. [facility] CHEMISTRY BUN 47 7 - 22 01/12/[address] [facility] CHEMISTRY Calcium Lvl 8.7 8.5 - 10.5 01/12/2013 Normal [facility] CHEMISTRY CO2 25 24 - 32 01/12/2013 Normal [facility] CHEMISTRY Potassium Lvl 4.4 3.5 - 5.1 01/12/2013 Normal [facility] CHEMISTRY Chloride Lvl 93 95 - 109 01/12/2013 LOW [facility] CHEMISTRY Sodium Lvl 132 135 - 145 01/12/2013 LOW [facility] CHEMISTRY Creatinine Lvl 6.4 0.5 - 1.4 01/12/[address] [facility] CHEMISTRY Albumin Lvl 3.6 3.5 - 5.0 01/12/2013 Normal [facility] CHEMISTRY Glucose Lvl 117 70 - 99 01/12/2013 [facility] <sup>2</sup>Interpretive Data: Adult ref erence range values reflect the clinical guidelines
of the [place] [employer]. [facility] CHEMISTRY AST 41 0 - 37 01/12/[address] [facility] CHEMISTRY ALT 69 0 - 65 01/12/[address] [facility] CHEMISTRY Total Protein 9.0 6.4 - 8.4 01/12/[address] [facility] CHEMISTRY Bili Total 0.5 0.2 - 1.3 01/12/2013 Normal [facility] CHEMISTRY Alk Phos 215 39 - 136 01/12/[address] [facility] CHEMISTRY BNP 4 <=100 01/12/2013 Normal <sup>3</sup>Interpretive Data: Elevated results are in line with increasing severity of
congestive heart failure. Minor elevations between 100 and 300
may be seen with Myocardial Ischemia, Sodium retaining drugs,
and compensated/treated heart failure. [facility] CHEMISTRY Magnesium Lvl 2.3 1.8 - 2.4 01/12/2013 Normal [facility] CHEMISTRY Troponin-I <0.02 0.00 - 0.40 01/12/2013 Normal [facility] CHEMISTRY Total CK 40 12 - 191 01/12/2013 Normal [facility] HEMATOLOGY RBC 2.96 4.20 - 5.40 01/12/2013 LOW [facility] [facility] HEMATOLOGY MCV 95.2 81.0 - 99.0 01/12/2013 Normal [facility] HEMATOLOGY Hct 28.2 36.0 - 48.0 01/12/2013 LOW [facility] HEMATOLOGY Hgb 9.2 12.0 - 16.0 01/12/2013 LOW [facility] HEMATOLOGY RDW 16.0 11.5 - 14.5 01/12/2013 [facility] MCHC 32.8 32.0 - 36.0 01/12/2013 Normal [facility] MPV 7.3 7.4 - 10.4 01/12/2013 LOW [facility] HEMATOLOGY Platelet 295 133 - 450 01/12/2013 Normal [facility] HEMATOLOGY WBC 10.7 3.7 - 10.4 01/12/2013 [facility] MCH 31.2 27.0 - 31.0 01/12/2013 [facility] INR 1.06 0.85 - 1.17 01/12/2013 Normal <sup>4</sup>Interpretive Data: RECOMMEND ED RANGES FOR PROTIME INR:
2.0-3.0 for most medical and surgical thromboembolic states.
2.5-3.5 for artificial heart valves and recurrent embolism.

INR SHOULD BE USED ONLY FOR PATIENTS ON STABLE ANTICOAGULANT THERAPY. [facility] HEMATOLOGY PTT 56.1 22.9 - 35.8 01/12/2013 HI <sup>5</sup>Interpretive Data: Heparin T herapeutic Range: 57 - 92 Seconds [facility] HEMATOLOGY PT 14.0 12.0 - 14.7 01/12/2013 Normal [facility] Monocytes # 1.0 0.0 - 0.8 01/12/[address] [facility] HEMATOLOGY Segs 78.5 45.0 - 75.0 01/12/2013 HI [facility] Segs-Bands # 8.4 1.5 - 8.1 01/12/2013 HI [facility] HEMATOLOGY Lymphocytes # 1.2 1.0 - 5.5 01/12/2013 Normal [facility] HEMATOLOGY Basophils 0.2 0.0 - 1.0 01/12/2013 Normal [facility] HEMATOLOGY Eosinophils # 0.1 0.0 - 0.5 01/12/2013 Normal [facility] HEMATOLOGY Eosinophils 0.8 0.0 - 4.0 01/12/2013 Normal [facility] HEMATOLOGY Monocytes 9.2 2.0 - 12.0 01/12/2013 Normal [facility] HEMATOLOGY Lymphocytes 11.3 20.0 - 40.0 01/12/2013 LOW [facility] HEMATOLOGY Basophils # 0.0 0.0 - 0.2 01/12/2013 Normal [facility] CHEMISTRY Total Protein 8.9 6.4 - 8.4 01/06/[address] [facility] CHEMISTRY ALT 55 0 - 65 01/06/2013 Normal [facility] CHEMISTRY Alk Phos 158 39 - 136 01/06/[address] [facility] CHEMISTRY AST 33 0 - 37 01/06/2013 Normal [facility] CHEMISTRY Bili Total 0.3 0.2 - 1.3 01/06/2013 Normal [facility] CHEMISTRY eGFR 14 01/06/2013 NA <sup>1</sup>Result Comment: [...] should be multiplied by the estimated BMI. [facility] CHEMISTRY CO2 31 24 - 32 01/06/2013 Normal [facility] CHEMISTRY BUN 31 7 - 22 01/06/[address] [facility] CHEMISTRY Creatinine Lvl 3.5 0.5 - 1.4 01/06/2013 [facility] CHEMISTRY Sodium Lvl 134 135 - 145 01/06/2013 LOW [facility] CHEMISTRY Potassium Lvl 4.7 3.5 - 5.1 01/06/2013 Normal [facility] CHEMISTRY Chloride Lvl 92 95 - 109 01/06/2013 LOW [facility] CHEMISTRY Albumin Lvl 4.0 3.5 - 5.0 01/06/2013 Normal [facility] CHEMISTRY Calcium Lvl 9.5 8.5 - 10.5 01/06/2013 Normal [facility] CHEMISTRY Glucose Lvl 134 70 - 99 01/06/2013 HI <sup>2</sup>Interpretive Data: Adult ref erence range values reflect the clinical guidelines
of the [place] [employer]. [facility] CHEMISTRY A/G Ratio 0.8 0.7 - 1.6 01/06/2013 Normal [facility] CHEMISTRY Globulin 4.9 2.0 - 4.0 01/06/2013 [facility] CHEMISTRY AGAP 15.7 10.0 - 20.0 01/06/2013 Normal [facility] CHEMISTRY B/C Ratio 9 6 - 25 01/06/2013 Normal [facility] HEMATOLOGY Basophils # 0.0 0.0 - 0.2 01/06/2013 Normal [facility] HEMATOLOGY RBC Morph Nicolasa l (01/06/2013 14:40:00) 01/06/2013 Normal [facility] HEMATOLOGY Lymphocytes 9.8 20.0 - 40.0 01/06/2013 LOW [facility] HEMATOLOGY Segs 83.6 45.0 - 75.0 01/06/2013 [facility] HEMATOLOGY Monocytes 5.4 2.0 - 12.0 01/06/2013 Normal [facility] HEMATOLOGY Eosinophils 0.9 0.0 - 4.0 01/06/2013 Normal [facility] HEMATOLOGY Plt Morph Nicolasa l (01/06/2013 14:40:00) 01/06/2013 Normal [facility] HEMATOLOGY Lymphocytes # 1.4 1.0 - 5.5 01/06/2013 Normal [facility] HEMATOLOGY Monocytes # 0.8 0.0 - 0.8 01/06/2013 Normal [facility] HEMATOLOGY Eosinophils # 0.1 0.0 - 0.5 01/06/2013 Normal [facility] HEMATOLOGY Segs-Bands # 11.9 1.5 - 8.1 01/06/2013 [facility] HEMATOLOGY Basophils 0.3 0.0 - 1.0 01/06/2013 Normal [facility] HEMATOLOGY Hct 30.6 36.0 - 48.0 01/06/2013 LOW [facility] HEMATOLOGY WBC 14.2 3.7 - 10.4 01/06/[address] [facility] HEMATOLOGY Hgb 10.1 12.0 - 16.0 01/06/2013 LOW [facility] HEMATOLOGY RBC 3.19 4.20 - 5.40 01/06/2013 LOW [facility] HEMATOLOGY MCH 31.8 27.0 - 31.0 01/06/[address] [facility] HEMATOLOGY MCV 96.0 81.0 - 99.0 01/06/2013 Normal [facility] HEMATOLOGY MCHC 33.1 32.0 - 36.0 01/06/2013 Normal [facility] HEMATOLOGY RDW 15.7 11.5 - 14.5 01/06/[address] [facility] HEMATOLOGY Platelet 315 133 - 450 01/06/2013 Normal [facility] HEMATOLOGY MPV 6.6 7.4 - 10.4 01/06/2013 LOW [facility] BEDSIDE GLUCOSE TESTING Comment2 Repeat test 12/28/2012 [facility] BEDSIDE GLUCOSE TESTING Comment1 Assess patient 12/28/2012 [facility] BEDSIDE GLUCOSE TESTING Comment3 Notify GI/ 12/28/2012 [facility] BEDSIDE GLUCOSE TESTING Gluc POC Lif scn 110 70 - 99 12/28/2012 HI <sup>2</sup>Interpretive Data: Upper Reportable Limit: 200 mg/dL. [facility] BEDSIDE GLUCOSE TESTING Comment1 Assess patient 12/28/2012 [facility] BEDSIDE GLUCOSE TESTING Comment2 Notify GI/ 12/28/2012 [facility] BEDSIDE GLUCOSE TESTING Gluc POC Lif scn 202 70 - 99 12/28/2012 HI <sup>3</sup>Interpretive Data: Upper Reportable Limit: 200 mg/dL. [facility] BEDSIDE GLUCOSE TESTING Gluc POC Lif scn 141 70 - 99 12/28/2012 HI <sup>4</sup>Interpretive Data: Upper Reportable Limit: 200 mg/dL. [facility] BEDSIDE GLUCOSE TESTING Comment1 Notify GI/ 12/28/2012 [facility] CHEMISTRY Phosphorus 4.9 2.5 - 4.5 12/28/[address] [facility] CHEMISTRY eGFR 8 12/28/2012 NA <sup>6</sup>Result [...] should be multiplied by the estimated BMI. [facility] CHEMISTRY Potassium Lvl 4.7 3.5 - 5.1 12/28/2012 Normal [facility] CHEMISTRY Chloride Lvl 94 95 - 109 12/28/2012 LOW [facility] CHEMISTRY Calcium Lvl 8.5 8.5 - 10.5 12/28/2012 Normal [facility] CHEMISTRY CO2 30 24 - 32 12/28/2012 Normal [facility] CHEMISTRY Glucose Lvl 136 70 - 99 12/28/2012 HI <sup>9</sup>Interpretive Data: Adult ref erence range values reflect the clinical guidelines
of the [place] [employer]. [facility] CHEMISTRY Sodium Lvl 137 135 - 145 12/28/2012 Normal [facility] CHEMISTRY Creatinine Lvl 5.5 0.5 - 1.4 12/28/[address] [facility] CHEMISTRY BUN 46 7 - 22 12/28/[address] [facility] CHEMISTRY AGAP 17.7 10.0 - 20.0 12/28/2012 Normal [facility] CHEMISTRY Magnesium Lvl 2.1 1.8 - 2.4 12/28/2012 Normal [facility] HEMATOLOGY Eosinophils 2.4 0.0 - 4.0 12/28/2012 Normal [facility] HEMATOLOGY Basophils 0.3 0.0 - 1.0 12/28/2012 Normal [facility] HEMATOLOGY Segs-Bands # 4.9 1.5 - 8.1 12/28/2012 Normal [facility] HEMATOLOGY Lymphocytes # 1.1 1.0 - 5.5 12/28/2012 Normal [facility] HEMATOLOGY Monocytes # 0.5 0.0 - 0.8 12/28/2012 Normal [facility] HEMATOLOGY Segs 73.1 45.0 - 75.0 12/28/2012 Normal [facility] HEMATOLOGY Lymphocytes 16.0 20.0 - 40.0 12/28/2012 LOW [facility] HEMATOLOGY Monocytes 8.2 2.0 - 12.0 12/28/2012 Normal [facility] HEMATOLOGY Eosinophils # 0.2 0.0 - 0.5 12/28/2012 Normal [facility] HEMATOLOGY Basophils # 0.0 0.0 - 0.2 12/28/2012 Normal [facility] HEMATOLOGY Platelet 178 133 - 450 12/28/2012 Normal [facility] HEMATOLOGY MPV 7.2 7.4 - 10.4 12/28/2012 LOW [facility] HEMATOLOGY RDW 16.1 11.5 - 14.5 12/28/[address] [facility] HEMATOLOGY Hct 29.1 36.0 - 48.0 12/28/2012 LOW [facility] HEMATOLOGY MCV 95.3 81.0 - 99.0 12/28/2012 Normal [facility] HEMATOLOGY MCH 31.6 27.0 - 31.0 12/28/[address] [facility] HEMATOLOGY MCHC 33.1 32.0 - 36.0 12/28/2012 Normal [facility] HEMATOLOGY RBC 3.05 4.20 - 5.40 12/28/2012 [facility] HEMATOLOGY Hgb 9.6 12.0 - 16.0 12/28/2012 LOW [facility] HEMATOLOGY WBC 6.7 3.7 - 10.4 12/28/2012 Normal [facility] BLOOD BANK RESULTS ABO/Rh O POS 12/27/2012 Unknown [facility] BLOOD BANK RESULTS Antibody Scrn Negative (12/27/2012 11:16:00) 12/27/2012 Normal [facility] CHEMISTRY Transferrin 239 212 - 360 12/27/2012 Normal [facility] CHEMISTRY TIBC 292 228 - 428 12/27/2012 Normal [facility] CHEMISTRY Iron 48 30 - 160 12/27/2012 Normal [facility] CHEMISTRY UIBC 244 110 - 370 12/27/2012 Normal [facility] CHEMISTRY % Satur Fe 16 12 - 57 12/27/2012 Normal [facility] CHEMISTRY Ferritin Lvl 914 5 - 204 12/27/[address] [facility] BLOOD BANK RESULTS RBC product Product available 5 (12/27/2012 11:00:23) 12/27/2012 Normal <sup>5</sup>Result Comment: 12/27/2012 14:28 ELZBIETA
Called to [facility] at 12/27/2012 14:28. [facility] CHEMISTRY eGFR 6 12/27/2012 NA <sup>7</sup>Result Comment: [...] should be multiplied by the estimated BMI. [facility] CHEMISTRY Calcium Lvl 6.6 8.5 - 10.5 12/27/2012 CRIT <sup>12</sup>Result Comment: Critical Re ronit(s) called to praful at 12/27/2012 04:53:37 CST_ by_[email or web address]. Read back OK. [facility] CHEMISTRY AGAP 18.6 10.0 - 20.0 12/27/2012 Normal [facility] CHEMISTRY Creatinine Lvl 7.6 0.5 - 1.4 12/27/2012 HI [facility] CHEMISTRY BUN 87 7 - 22 12/27/[address] [facility] CHEMISTRY Glucose Lvl 119 70 - 99 12/27/2012 HI <sup>10</sup>Interpretive Data: Adult re ference range values reflect the clinical guidelines
of the [place] [employer]. [facility] CHEMISTRY CO2 31 24 - 32 12/27/2012 Normal [facility] CHEMISTRY Chloride Lvl 91 95 - 109 12/27/2012 LOW [facility] CHEMISTRY Potassium Lvl 4.6 3.5 - 5.1 12/27/2012 Normal [facility] CHEMISTRY Sodium Lvl 136 135 - 145 12/27/2012 Normal [facility] HEMATOLOGY Eosinophils # 0.2 0.0 - 0.5 12/27/2012 Normal [facility] HEMATOLOGY Basophils # 0.0 0.0 - 0.2 12/27/2012 Normal [facility] HEMATOLOGY Monocytes # 0.6 0.0 - 0.8 12/27/2012 Normal [facility] HEMATOLOGY Lymphocytes # 1.2 1.0 - 5.5 12/27/2012 Normal [facility] HEMATOLOGY Segs-Bands # 4.0 1.5 - 8.1 12/27/2012 Normal [facility] HEMATOLOGY Basophils 0.2 0.0 - 1.0 12/27/2012 Normal [facility] HEMATOLOGY Eosinophils 2.7 0.0 - 4.0 12/27/2012 Normal [facility] HEMATOLOGY Monocytes 9.5 2.0 - 12.0 12/27/2012 Normal [facility] HEMATOLOGY Lymphocytes 20.0 20.0 - 40.0 12/27/2012 Normal [facility] HEMATOLOGY Segs 67.6 45.0 - 75.0 12/27/2012 Normal [facility] MCV 96.0 81.0 - 99.0 12/27/2012 Normal [facility] MCHC 33.0 32.0 - 36.0 12/27/2012 Normal [facility] Hgb 7.7 12.0 - 16.0 12/27/2012 LOW [facility] RBC 2.44 4.20 - 5.40 12/27/2012 LOW [facility] WBC 5.9 3.7 - 10.4 12/27/2012 Normal [facility] MPV 7.2 7.4 - 10.4 12/27/2012 LOW [facility] HEMATOLOGY Hct 23.4 36.0 - 48.0 12/27/2012 LOW [facility] MCH 31.6 27.0 - 31.0 12/27/[address] [facility] HEMATOLOGY Platelet 144 133 - 450 12/27/2012 Normal [facility] RDW 16.1 11.5 - 14.5 12/27/[address] [facility] Microbiology Culture: Blood 12/27/2012 [facility] BACTERIAL - SEROLOGY MRSA by PCR Negative [...] by the Molecular Diagnostic Laboratory within the [facility]. The Molecular Diagnostic Laboratory is authorized under the Clinical Laboratory Improvement Amendment of 1988 (CLIA-88) to perform high complexity testing. [facility] BEDSIDE GLUCOSE TESTING Comment2 Notify RN/MD 12/27/2012 NA [facility] CHEMISTRY CK MB 2.3 0.5 - 3.6 12/27/2012 Normal [facility] CHEMISTRY Troponin-I <0.02 0.00 - 0.40 12/27/2012 Normal [facility] CHEMISTRY Total CK 87 12 - 191 12/27/2012 Normal [facility] CHEMISTRY Potassium Lvl 5.9 3.5 - 5.1 12/26/2012 HI [facility] CHEMISTRY Sodium Lvl 136 135 - 145 12/26/2012 Normal [facility] CHEMISTRY Chloride Lvl 93 95 - 109 12/26/2012 LOW [facility] CHEMISTRY AGAP 21.9 10.0 - 20.0 12/26/[address] [facility] CHEMISTRY Calcium Lvl 7.8 8.5 - 10.5 12/26/2012 LOW [facility] CHEMISTRY Creatinine Lvl 6.4 0.5 - 1.4 12/26/[address] [facility] CHEMISTRY CO2 27 24 - 32 12/26/2012 Normal [facility] CHEMISTRY BUN 67 7 - 22 12/26/[address] [facility] CHEMISTRY Glucose Lvl 123 70 - 99 12/26/2012 HI <sup>11</sup>Interpretive Data: Adult re ference range values reflect the clinical guidelines
of the [place] [employer]. [facility] CHEMISTRY eGFR 7 12/26/2012 NA <sup>8</sup>Result Comment: [...] should be multiplied by the estimated BMI. [facility] CHEMISTRY CK MB 2.2 0.5 - 3.6 12/26/2012 Normal [facility] CHEMISTRY Total CK 67 12 - 191 12/26/2012 Normal [facility] CHEMISTRY Troponin-I <0.02 0.00 - 0.40 12/26/2012 Normal [facility] CHEMISTRY Phosphorus 6.2 2.5 - 4.5 12/26/2012 HI [facility] CHEMISTRY Magnesium Lvl 1.8 1.8 - 2.4 12/26/2012 Normal [facility] CHEMISTRY Phosphorus 0.5 2.5 - 4.5 12/26/2012 CRIT <sup>13</sup>Result Comment: Critical Re sult(s) called to [facility] at 12/26/2012 06:20:18 CARE TAKER by sdd. Read back OK. [facility] CHEMISTRY CK MB 3.1 0.5 - 3.6 12/26/2012 Normal [facility] CHEMISTRY Total CK 90 12 - 191 12/26/2012 Normal [facility] CHEMISTRY Troponin-I <0.02 0.00 - 0.40 12/26/2012 Normal [facility] HEMATOLOGY INR 1.05 0.85 - 1.17 12/26/2012 Normal <sup>14</sup>Interpretive Data: RECOMMEN DED RANGES FOR PROTIME INR:
2.0-3.0 for most medical and surgical thromboembolic states.
2.5-3.5 for artificial heart valves and recurrent embolism.

INR SHOULD BE USED ONLY FOR PATIENTS ON STABLE ANTICOAGULANT THERAPY. [facility] HEMATOLOGY PT 13.9 12.0 - 14.7 12/26/2012 Normal [facility] HEMATOLOGY PTT 42.5 22.9 - 35.8 12/26/2012 HI <sup>15</sup>Interpretive Data: Heparin Therapeutic Range: 57 - 92 Seconds [facility] IMMUNOLOGY Hep Bs Ag Negat sue *NA* (12/26/2012 03:00:00) Negati ve 12/26/2012 NA [facility] CHEMISTRY CK MB Index 3.3 0.0 - 2.5 12/26/[address] [facility] CHEMISTRY B/C Ratio 13 6 - 25 12/26/2012 Normal [facility] CHEMISTRY Total Protein 7.8 6.4 - 8.4 12/26/2012 Normal [facility] CHEMISTRY Alk Phos 145 39 - 136 12/26/2012 [facility] CHEMISTRY Bili Total 0.3 0.2 - 1.3 12/26/2012 Normal [facility] CHEMISTRY AST 20 0 - 37 12/26/2012 Normal [facility] CHEMISTRY ALT 44 0 - 65 12/26/2012 Normal [facility] CHEMISTRY Globulin 4.2 2.0 - 4.0 12/26/2012 [facility] CHEMISTRY A/G Ratio 0.9 0.7 - 1.6 12/26/2012 Normal [facility] CHEMISTRY Albumin Lvl 3.6 3.5 - 5.0 12/26/2012 Normal [facility] CHEMISTRY Magnesium Lvl 2.5 1.8 - 2.4 12/26/2012 [facility] HEMATOLOGY Basophils # 0.0 [...] Lymphocytes 13.6 20.0 - 40.0 12/26/2012 LOW [facility] HEMATOLOGY Segs-Bands # 5.8 1.5 - 8.1 12/26/2012 Normal [facility] HEMATOLOGY Segs 78.1 45.0 - 75.0 12/26/2012 [facility] HEMATOLOGY MCH 31.9 27.0 - 31.0 12/26/2012 [facility] HEMATOLOGY MCHC 33.0 32.0 - 36.0 12/26/2012 Normal [facility] HEMATOLOGY RDW 16.3 11.5 - 14.5 12/26/2012 [facility] HEMATOLOGY Platelet 177 133 - 450 12/26/2012 Normal [facility] HEMATOLOGY WBC 7.4 3.7 - 10.4 12/26/2012 Normal [facility] HEMATOLOGY MPV 7.5 7.4 - 10.4 12/26/2012 Normal [facility] HEMATOLOGY Hct 26.3 36.0 - 48.0 12/26/2012 LOW [facility] HEMATOLOGY RBC 2.72 4.20 - 5.40 12/26/2012 LOW [facility] HEMATOLOGY Hgb 8.7 12.0 - 16.0 12/26/2012 LOW [facility] HEMATOLOGY MCV 96.7 81.0 - 99.0 12/26/2012 Normal [facility] CHEMISTRY Troponin-I <0.02 0.00 - 0.40 12/05/2012 Normal [facility] CHEMISTRY Total CK 76 12 - 191 12/05/2012 Normal [facility] CHEMISTRY A/G Ratio 0.7 0.7 - 1.6 12/05/2012 Normal [facility] CHEMISTRY AGAP 19.9 10.0 - 20.0 12/05/2012 Normal [facility] CHEMISTRY B/C Ratio 9 6 - 25 12/05/2012 Normal [facility] CHEMISTRY Globulin 4.2 2.0 - 4.0 12/05/2012 HI [facility] CHEMISTRY eGFR 5 12/05/2012 NA <sup>1</sup>Result Comment: [...] should be multiplied by the estimated BMI. [facility] CHEMISTRY CO2 22 24 - 32 12/05/2012 LOW [facility] CHEMISTRY Creatinine Lvl 8.9 0.5 - 1.4 12/05/[address] [facility] CHEMISTRY Calcium Lvl 8.2 8.5 - 10.5 12/05/2012 LOW [facility] CHEMISTRY Total Protein 7.3 6.4 - 8.4 12/05/2012 Normal [facility] CHEMISTRY Alk Phos 148 39 - 136 12/05/[address] [facility] CHEMISTRY Bili Total 0.3 0.2 - 1.3 12/05/2012 Normal [facility] CHEMISTRY ALT 17 0 - 65 12/05/2012 Normal [facility] CHEMISTRY Albumin Lvl 3.1 3.5 - 5.0 12/05/2012 LOW [facility] CHEMISTRY AST 25 0 - 37 12/05/2012 Normal [facility] CHEMISTRY Glucose Lvl 138 70 - 99 12/05/2012 HI <sup>2</sup>Interpretive Data: Adult ref erence range values reflect the clinical guidelines
of the [place] [employer]. [facility] CHEMISTRY BUN 82 7 - 22 12/05/[address] [facility] CHEMISTRY Chloride Lvl 102 95 - 109 12/05/2012 Normal [facility] CHEMISTRY Sodium Lvl 138 135 - 145 12/05/2012 Normal [facility] CHEMISTRY Potassium Lvl 5.9 3.5 - 5.1 12/05/[address] [facility] HEMATOLOGY Basophils 0.0 0.0 - 1.0 12/05/2012 Normal [facility] HEMATOLOGY Segs-Bands # 4.7 1.5 - 8.1 12/05/2012 Normal [facility] HEMATOLOGY Lymphocytes # 0.6 1.0 - 5.5 12/05/2012 LOW [facility] HEMATOLOGY Eosinophils 0.6 0.0 - 4.0 12/05/2012 Normal [facility] HEMATOLOGY Lymphocytes 10.0 20.0 - 40.0 12/05/2012 LOW [facility] HEMATOLOGY Monocytes 8.8 2.0 - 12.0 12/05/2012 Normal [facility] HEMATOLOGY Segs 80.6 45.0 - 75.0 12/05/[address] [facility] HEMATOLOGY Basophils # 0.0 0.0 - 0.2 12/05/2012 Normal [facility] HEMATOLOGY Eosinophils # 0.0 0.0 - 0.5 12/05/2012 Normal [facility] HEMATOLOGY Monocytes # 0.5 0.0 - 0.8 12/05/2012 Normal [facility] HEMATOLOGY INR 1.00 0.85 - 1.17 12/05/2012 Normal <sup>3</sup>Interpretive Data: RECOMMEND ED RANGES FOR PROTIME INR:
2.0-3.0 for most medical and surgical thromboembolic states.
2.5-3.5 for artificial heart valves and recurrent embolism.

INR SHOULD BE USED ONLY FOR PATIENTS ON STABLE ANTICOAGULANT THERAPY. [facility] HEMATOLOGY PTT 31.5 22.9 - 35.8 12/05/2012 Normal <sup>4</sup>Interpretive Data: Heparin T herapeutic Range: 57 - 92 Seconds [facility] HEMATOLOGY PT 13.4 12.0 - 14.7 12/05/2012 Normal [facility] HEMATOLOGY Hct 22.1 36.0 - 48.0 12/05/2012 LOW [facility] HEMATOLOGY MCH 31.7 27.0 - 31.0 12/05/2012 HI [facility] HEMATOLOGY MCV 94.0 81.0 - 99.0 12/05/2012 Normal [facility] HEMATOLOGY Platelet 220 133 - 450 12/05/2012 Normal [facility] HEMATOLOGY RDW 16.5 11.5 - 14.5 12/05/2012 HI [facility] HEMATOLOGY MPV 7.2 7.4 - 10.4 12/05/2012 LOW [facility] HEMATOLOGY WBC 5.8 3.7 - 10.4 12/05/2012 Normal [facility] RBC 2.35 4.20 - 5.40 12/05/2012 LOW [facility] HEMATOLOGY Hgb 7.4 12.0 - 16.0 12/05/2012 LOW [facility] HEMATOLOGY MCHC 33.7 32.0 - 36.0 12/05/2012 Normal [facility] BEDSIDE GLUCOSE TESTING Gluc POC Lif scn 192 70 - 99 12/03/2012 HI <sup>1</sup>Interpretive Data: Upper Reportable Limit: 200 mg/dL. [facility] BEDSIDE GLUCOSE TESTING Comment1 Notify GI/ 12/03/2012 NA [facility] [facility] BEDSIDE GLUCOSE TESTING Gluc POC Lif scn 298 70 - 99 12/03/2012 [place] <sup>2</sup>Interpretive Data: Upper Reportable Limit: 200 mg/dL. [facility] BEDSIDE GLUCOSE TESTING Comment1 Notify GI/ 12/03/2012 NA [facility] BEDSIDE GLUCOSE TESTING Gluc POC Lif scn 194 70 - 99 12/03/2012 [place] <sup>3</sup>Interpretive Data: Upper Reportable Limit: 200 mg/dL. [facility] BEDSIDE GLUCOSE TESTING Comment1 Notify RN/ 12/02/2012 NA [facility] CHEMISTRY AGAP 18.6 10.0 - 20.0 12/01/2012 Normal [facility] CHEMISTRY eGFR 9 12/01/2012 NA <sup>4</sup>Result Comment: [...] should be multiplied by the estimated BMI. [facility] CHEMISTRY Potassium Lvl 4.6 3.5 - 5.1 12/01/2012 Normal [facility] CHEMISTRY Chloride Lvl 93 95 - 109 12/01/2012 LOW [facility] CHEMISTRY Sodium Lvl 135 135 - 145 12/01/2012 Normal [facility] CHEMISTRY CO2 28 24 - 32 12/01/2012 Normal [facility] CHEMISTRY Calcium Lvl 8.9 8.5 - 10.5 12/01/2012 Normal [facility] CHEMISTRY Creatinine Lvl 5.3 0.5 - 1.4 12/01/2012 HI [facility] CHEMISTRY Glucose Lvl 139 70 - 99 12/01/2012 [place] <sup>7</sup>Interpretive Data: Adult ref erence range values reflect the clinical guidelines
of the [place] [employer]. [facility] CHEMISTRY BUN 27 7 - 22 12/01/[address] [facility] CHEMISTRY S Preg Negati ve *NA* (12/01/2012 05:28:00) Negati ve 12/01/2012 NA [facility] HEMATOLOGY Eosinophils # 0.4 0.0 - 0.5 12/01/2012 Normal [facility] HEMATOLOGY Basophils # 0.0 0.0 - 0.2 12/01/2012 Normal [facility] HEMATOLOGY Monocytes # 0.6 0.0 - 0.8 12/01/2012 Normal [facility] HEMATOLOGY Segs-Bands # 6.2 1.5 - 8.1 12/01/2012 Normal [facility] HEMATOLOGY Lymphocytes # 1.4 1.0 - 5.5 12/01/2012 Normal [facility] HEMATOLOGY Basophils 0.2 0.0 - 1.0 12/01/2012 Normal [facility] HEMATOLOGY Monocytes 6.7 2.0 - 12.0 12/01/2012 Normal [facility] HEMATOLOGY Eosinophils 4.8 0.0 - 4.0 12/01/2012 [facility] HEMATOLOGY Segs 72.2 45.0 - 75.0 12/01/2012 Normal [facility] HEMATOLOGY Lymphocytes 16.1 20.0 - 40.0 12/01/2012 LOW [facility] HEMATOLOGY RDW 16.3 11.5 - 14.5 12/01/[address] [facility] HEMATOLOGY MCH 31.2 27.0 - 31.0 12/01/[address] [facility] HEMATOLOGY MCHC 33.2 32.0 - 36.0 12/01/2012 Normal [facility] HEMATOLOGY MCV 93.9 81.0 - 99.0 12/01/2012 Normal [facility] HEMATOLOGY Hgb 9.4 12.0 - 16.0 12/01/2012 LOW [facility] HEMATOLOGY Hct 28.5 36.0 - 48.0 12/01/2012 LOW [facility] HEMATOLOGY RBC 3.03 4.20 - 5.40 12/01/2012 LOW [facility] HEMATOLOGY Platelet 264 133 - 450 12/01/2012 Normal [facility] HEMATOLOGY MPV 7.3 7.4 - 10.4 12/01/2012 LOW [facility] HEMATOLOGY WBC 8.6 3.7 - 10.4 12/01/2012 Normal [facility] CHEMISTRY Glucose Lvl 125 70 - 99 11/30/2012 [facility] <sup>8</sup>Interpretive Data: Adult ref erence range values reflect the clinical guidelines
of the [place] [employer]. [facility] CHEMISTRY BUN 53 7 - 22 11/30/2012 [facility] CHEMISTRY CO2 31 24 - 32 11/30/2012 Normal [facility] CHEMISTRY AGAP 14.4 10.0 - 20.0 11/30/2012 Normal [facility] CHEMISTRY B/C Ratio 7 6 - 25 11/30/2012 Normal [facility] CHEMISTRY Bili Total 0.4 0.2 - 1.3 11/30/2012 Normal [facility] CHEMISTRY AST 18 0 - 37 11/30/2012 Normal [facility] CHEMISTRY Alk Phos 146 39 - 136 11/30/2012 [facility] CHEMISTRY A/G Ratio 1.0 [...] should be multiplied by the estimated BMI. [facility] CHEMISTRY Sodium Lvl 134 135 - 145 11/30/2012 [facility] CHEMISTRY Chloride Lvl 93 95 - 109 11/30/2012 [facility] CHEMISTRY Potassium Lvl 4.4 3.5 - 5.1 11/30/2012 Normal [facility] CHEMISTRY Calcium Lvl 8.1 8.5 - 10.5 11/30/2012 [facility] CHEMISTRY Creatinine Lvl 7.1 0.5 - 1.4 11/30/[address] [facility] HEMATOLOGY Eosinophils # 0.4 0.0 - 0.5 11/30/2012 Normal [facility] HEMATOLOGY Monocytes # 0.6 0.0 - 0.8 11/30/2012 Normal [facility] HEMATOLOGY Lymphocytes # 1.4 1.0 - 5.5 11/30/2012 [facility] HEMATOLOGY Monocytes 6.7 2.0 - 12.0 11/30/2012 [facility] HEMATOLOGY Segs 73.1 45.0 - 75.0 11/30/2012 Normal [facility] HEMATOLOGY Lymphocytes 15.7 20.0 - 40.0 11/30/2012 [facility] HEMATOLOGY Basophils # 0.0 0.0 - 0.2 11/30/2012 Normal [facility] HEMATOLOGY Eosinophils 4.2 0.0 - 4.0 11/30/[address] [facility] HEMATOLOGY Basophils 0.3 0.0 - 1.0 11/30/2012 Normal [facility] HEMATOLOGY Segs-Bands # 6.7 1.5 - 8.1 11/30/2012 Normal [facility] HEMATOLOGY Platelet 236 133 - 450 11/30/2012 Normal [facility] HEMATOLOGY MPV 7.4 7.4 - 10.4 11/30/2012 Normal [facility] HEMATOLOGY MCHC 32.9 32.0 - 36.0 11/30/2012 Normal [facility] HEMATOLOGY MCV 93.3 81.0 - 99.0 11/30/2012 Normal [facility] HEMATOLOGY RDW 16.2 11.5 - 14.5 11/30/2012 [place] [facility] HEMATOLOGY Hct 26.6 36.0 - 48.0 11/30/2012 LOW [facility] HEMATOLOGY MCH 30.7 27.0 - 31.0 11/30/2012 Normal [facility] HEMATOLOGY Hgb 8.8 12.0 - 16.0 11/30/2012 LOW [facility] HEMATOLOGY WBC 9.2 3.7 - 10.4 11/30/2012 Normal [facility] HEMATOLOGY RBC 2.85 4.20 - 5.40 11/30/2012 LOW [facility] IMMUNOLOGY Hep Bs Ag Negat sue *NA* (11/30/2012 05:19:00) Negati ve 11/30/2012 [facility] CHEMISTRY O2 Sat Art 99.6 95.0 - 100.0 11/29/2012 Normal [facility] CHEMISTRY BE Art 3 -2-2 - 2 11/29/2012 [facility] CHEMISTRY Site Art Right Br (11/29/2012 11:33:00) 11/29/2012 Normal [facility] CHEMISTRY HCO3 Art 31 22 - 26 11/29/2012 [facility] CHEMISTRY pO2 Art 190 80 - 100 11/29/2012 [facility] CHEMISTRY PS Art 10 11/29/2012 [facility] CHEMISTRY FiO2 Art 50.0 11/29/2012 [facility] CHEMISTRY Mode Art Cpap (11/29/2012 11:33:00) 11/29/2012 Normal [facility] CHEMISTRY Temp Art 37.0 11/29/2012 [facility] CHEMISTRY pCO2 Art 58 35 - 45 11/29/2012 [facility] CHEMISTRY pH Art 7.33 [...] Sodium retaining drugs,
and compensated/treated heart failure. [facility] CHEMISTRY eGFR 7 11/29/2012 NA <sup>6</sup>Result Comment: [...] should be multiplied by the estimated BMI. [facility] CHEMISTRY B/C Ratio 6 6 - 25 11/29/2012 Normal [facility] CHEMISTRY AGAP 15.2 10.0 - 20.0 11/29/2012 Normal [facility] CHEMISTRY AST 22 0 - 37 11/29/2012 Normal [facility] CHEMISTRY Bili Total 0.3 0.2 - 1.3 11/29/2012 Normal [facility] CHEMISTRY Creatinine Lvl 6.2 0.5 - 1.4 11/29/[address] [facility] CHEMISTRY BUN 40 7 - 22 11/29/[address] [facility] CHEMISTRY ALT 36 0 - 65 11/29/2012 Normal [facility] CHEMISTRY Albumin Lvl 3.6 3.5 - 5.0 11/29/2012 Normal [facility] CHEMISTRY Alk Phos 138 39 - 136 11/29/[address] [facility] CHEMISTRY Total Protein 7.4 6.4 - 8.4 11/29/2012 Normal [facility] CHEMISTRY Calcium Lvl 8.3 8.5 - 10.5 11/29/2012 LOW [facility] CHEMISTRY Glucose Lvl 106 70 - 99 11/29/2012 [place] <sup>9</sup>Interpretive Data: Adult ref erence range values reflect the clinical guidelines
of the [place] [employer]. [facility] CHEMISTRY CO2 29 24 - 32 11/29/2012 Normal [facility] CHEMISTRY A/G Ratio 0.9 0.7 - 1.6 11/29/2012 Normal [facility] CHEMISTRY Globulin 3.8 2.0 - 4.0 11/29/2012 Normal [facility] CHEMISTRY Chloride Lvl 98 95 - 109 11/29/2012 Normal [facility] CHEMISTRY Sodium Lvl 137 135 - 145 11/29/2012 Normal [facility] CHEMISTRY Potassium Lvl 5.2 3.5 - 5.1 11/29/2012 [place] [facility] CHEMISTRY CK MB 0.6 0.5 - 3.6 11/29/2012 Normal [facility] CHEMISTRY CK MB Index 0.8 0.0 - 2.5 11/29/2012 Normal [facility] HEMATOLOGY INR 0.97 0.85 - 1.17 11/29/2012 Normal <sup>11</sup>Interpretive Data: RECOMMEN DED RANGES FOR PROTIME INR:
2.0-3.0 for most medical and surgical thromboembolic states.
2.5-3.5 for artificial heart valves and recurrent embolism.

INR SHOULD BE USED ONLY FOR PATIENTS ON STABLE ANTICOAGULANT THERAPY. [facility] HEMATOLOGY PTT 35.5 22.9 - 35.8 11/29/2012 Normal <sup>12</sup>Interpretive Data: Heparin Therapeutic Range: 57 - 92 Seconds [facility] HEMATOLOGY PT 13.1 12.0 - 14.7 11/29/2012 Normal [facility] HEMATOLOGY Platelet 208 133 - 450 11/29/2012 Normal [facility] HEMATOLOGY MPV 7.4 7.4 - 10.4 11/29/2012 Normal [facility] HEMATOLOGY RDW 16.1 11.5 - 14.5 11/29/[address] [facility] HEMATOLOGY MCH 31.1 27.0 - 31.0 11/29/2012 HI [facility] HEMATOLOGY MCHC 33.0 32.0 - 36.0 11/29/2012 Normal [facility] HEMATOLOGY MCV 94.3 81.0 - 99.0 11/29/2012 Normal [facility] HEMATOLOGY Hct 27.6 36.0 - 48.0 11/29/2012 LOW [facility] HEMATOLOGY RBC 2.93 4.20 - 5.40 11/29/2012 LOW [facility] HEMATOLOGY Hgb 9.1 12.0 - 16.0 11/29/2012 LOW [facility] HEMATOLOGY WBC 7.0 3.7 - 10.4 11/29/2012 Normal [facility] HEMATOLOGY Monocytes # 0.6 0.0 - 0.8 11/29/2012 Normal [facility] HEMATOLOGY Lymphocytes # 1.4 1.0 - 5.5 11/29/2012 Normal [facility] HEMATOLOGY Segs-Bands # 4.8 1.5 - 8.1 11/29/2012 Normal [facility] HEMATOLOGY Basophils 0.3 0.0 - 1.0 11/29/2012 Normal [facility] HEMATOLOGY Eosinophils 3.3 0.0 - 4.0 11/29/2012 Normal [facility] HEMATOLOGY Monocytes 9.1 2.0 - 12.0 11/29/2012 Normal [facility] HEMATOLOGY Lymphocytes 19.3 20.0 - 40.0 11/29/2012 LOW [facility] HEMATOLOGY Segs 68.0 45.0 - 75.0 11/29/2012 Normal [facility] HEMATOLOGY Basophils # 0.0 0.0 - 0.2 11/29/2012 Normal [facility] HEMATOLOGY Eosinophils # 0.2 0.0 - 0.5 11/29/2012 Normal [facility] BEDSIDE GLUCOSE TESTING Gluc POC Lif scn 119 70 - 99 09/10/2012 [place] <sup>2</sup>Interpretive Data: Upper Reportable Limit: 200 mg/dL. [facility] BEDSIDE GLUCOSE TESTING Gluc POC Lif scn 148 70 - 99 09/10/2012 [place] <sup>3</sup>Interpretive Data: Upper Reportable Limit: 200 mg/dL. [facility] BEDSIDE GLUCOSE TESTING Comment1 Notify RN/ 09/10/2012 NA [facility] BEDSIDE GLUCOSE TESTING Gluc POC Lif scn 198 70 - 99 09/10/2012 [place] <sup>4</sup>Interpretive Data: Upper Reportable Limit: 200 mg/dL. [facility] BEDSIDE GLUCOSE TESTING Comment1 Notify RN/ 09/10/2012 NA [facility] BEDSIDE GLUCOSE TESTING Comment1 Notify RN/ 09/10/2012 NA [facility] CHEMISTRY Phosphorus 3.8 2.5 - 4.5 09/09/2012 Normal [facility] CHEMISTRY eGFR 9 09/09/2012 NA <sup>5</sup>Result Comment: [...] should be multiplied by the estimated BMI. [facility] CHEMISTRY AGAP 14.5 10.0 - 20.0 09/09/2012 Normal [facility] CHEMISTRY Calcium Lvl 7.3 8.5 - 10.5 09/09/2012 LOW [facility] CHEMISTRY Chloride Lvl 96 95 - 109 09/09/2012 Normal [facility] CHEMISTRY CO2 28 24 - 32 09/09/2012 Normal [facility] CHEMISTRY Potassium Lvl 4.5 3.5 - 5.1 09/09/2012 Normal [facility] CHEMISTRY Sodium Lvl 134 135 - 145 09/09/2012 LOW [facility] CHEMISTRY BUN 45 7 - 22 09/09/2012 HI [facility] CHEMISTRY Creatinine Lvl 5.4 0.5 - 1.4 09/09/[address] [facility] CHEMISTRY Glucose Lvl 97 70 - 99 09/09/2012 Normal <sup>8</sup>Interpretive Data: Adult ref erence range values reflect the clinical guidelines
of the [place] [employer]. [facility] CHEMISTRY Magnesium Lvl 2.0 1.8 - 2.4 09/09/2012 Normal [facility] CHEMISTRY eGFR 7 09/08/2012 NA <sup>6</sup>Result Comment: [...] should be multiplied by the estimated BMI. [facility] CHEMISTRY Creatinine Lvl 6.6 0.5 - 1.4 09/08/[address] [facility] CHEMISTRY Chloride Lvl 91 95 - 109 09/08/2012 LOW [facility] CHEMISTRY Sodium Lvl 127 135 - 145 09/08/2012 LOW [facility] CHEMISTRY BUN 63 7 - 22 09/08/[address] [facility] CHEMISTRY Potassium Lvl 4.6 3.5 - 5.1 09/08/2012 Normal [facility] CHEMISTRY Calcium Lvl 7.4 8.5 - 10.5 09/08/2012 LOW [facility] CHEMISTRY CO2 19 24 - 32 09/08/2012 [facility] CHEMISTRY Glucose Lvl 81 70 - 99 09/08/2012 Normal <sup>9</sup>Interpretive Data: Adult ref erence range values reflect the clinical guidelines
of the [place] [employer]. [facility] CHEMISTRY AGAP 21.6 10.0 - 20.0 09/08/[address] [facility] HEMATOLOGY Lymphocytes # 1.8 1.0 - 5.5 09/08/2012 Normal [facility] HEMATOLOGY Monocytes # 0.8 0.0 - 0.8 09/08/2012 Normal [facility] HEMATOLOGY Basophils 0.1 0.0 - 1.0 09/08/2012 Normal [facility] HEMATOLOGY Segs-Bands # 8.5 1.5 - 8.1 09/08/[address] [facility] HEMATOLOGY Eosinophils # 0.2 0.0 - 0.5 09/08/2012 Normal [facility] HEMATOLOGY RBC Morph Nicolasa l (09/08/2012 05:02:00) 09/08/2012 Normal [facility] HEMATOLOGY Lymphocytes 15.9 20.0 - 40.0 09/08/2012 LOW [facility] HEMATOLOGY Segs 74.6 45.0 - 75.0 09/08/2012 Normal [facility] HEMATOLOGY Monocytes 7.3 2.0 - 12.0 09/08/2012 Normal [facility] HEMATOLOGY Eosinophils 2.1 0.0 - 4.0 09/08/2012 Normal [facility] HEMATOLOGY Plt Morph Nicolasa l (09/08/2012 05:02:00) 09/08/2012 Normal [facility] HEMATOLOGY Basophils # 0.0 0.0 - 0.2 09/08/2012 Normal [facility] HEMATOLOGY MCH 31.2 27.0 - 31.0 09/08/[address] [facility] HEMATOLOGY MCV 93.2 81.0 - 99.0 09/08/2012 Normal [facility] HEMATOLOGY MCHC 33.5 32.0 - 36.0 09/08/2012 Normal [facility] HEMATOLOGY Hct 26.8 36.0 - 48.0 09/08/2012 LOW [facility] HEMATOLOGY Hgb 9.0 12.0 - 16.0 09/08/2012 LOW [facility] HEMATOLOGY RBC 2.88 4.20 - 5.40 09/08/2012 LOW [facility] HEMATOLOGY WBC 11.4 3.7 - 10.4 09/08/2012 HI [facility] HEMATOLOGY RDW 14.3 11.5 - 14.5 09/08/2012 Normal [facility] HEMATOLOGY MPV 7.2 7.4 - 10.4 09/08/2012 LOW [facility] HEMATOLOGY Platelet 200 133 - 450 09/08/2012 Normal [facility] Microbiology Culture: Urine 09/07/2012 [facility] URINALYSIS UA Urobilinogen 0.1 - 1.0 09/07/2012 NA [facility] URINALYSIS UA Color Cari 09/07/2012 NA [facility] URINALYSIS UA Amorph Ashly Moder ate /HPF *ABN* (09/07/2012 13:00:00) None S een 09/07/2012 ABN [facility] URINALYSIS UA Trans Epi 5 <=0 09/07/2012 [facility] URINALYSIS UA Ketones Negat [...] *ABN* (09/07/2012 13:00:00) Negati ve 09/07/2012 ABN [facility] URINALYSIS UA Leuk Est Small *ABN* (09/07/2012 13:00:00) Negati ve 09/07/2012 ABN [facility] URINALYSIS UA Sq Epi Many /LPF *ABN* (09/07/2012 13:00:00) Few 09/07/2012 ABN [facility] URINALYSIS UA Renal Epi 3 <=0 09/07/[address] [facility] URINALYSIS UA Bacteria Few / HPF *NA* (09/07/2012 13:00:00) None S een 09/07/2012 NA [facility] URINALYSIS UA RBC 4 0 - 2 09/07/[address] [facility] URINALYSIS UA WBC 16 0 - 5 09/07/[address] [facility] URINALYSIS UA Bili Negat sue *NA* (09/07/2012 13:00:00) Negati ve 09/07/2012 NA [facility] URINALYSIS UA Nitrite Negat sue (09/07/2012 13:00:00) Negati ve 09/07/2012 Normal [facility] URINALYSIS UA Blood Negat sue (09/07/2012 13:00:00) Negati ve 09/07/2012 Normal [facility] CHEMISTRY Magnesium Lvl 2.0 1.8 - 2.4 09/07/2012 Normal [facility] CHEMISTRY Phosphorus 6.2 2.5 - 4.5 09/07/[address] [facility] CHEMISTRY Total CK 60 12 - 191 09/07/2012 Normal [facility] CHEMISTRY AGAP 23.2 10.0 - 20.0 09/07/[address] [facility] CHEMISTRY CO2 23 24 - 32 09/07/2012 LOW [facility] CHEMISTRY Glucose Lvl 255 70 - 99 09/07/2012 [place] <sup>10</sup>Interpretive Data: Adult re ference range values reflect the clinical guidelines
of the [place] [employer]. [facility] CHEMISTRY BUN 64 7 - 22 09/07/[address] [facility] CHEMISTRY Creatinine Lvl 7.0 0.5 - 1.4 09/07/[address] [facility] CHEMISTRY eGFR 6 09/07/2012 NA <sup>7</sup>Result [...] should be multiplied by the estimated BMI. [facility] CHEMISTRY Sodium Lvl 129 135 - 145 09/07/2012 LOW [facility] CHEMISTRY Potassium Lvl 5.2 3.5 - 5.1 09/07/[address] [facility] CHEMISTRY Chloride Lvl 88 95 - 109 09/07/2012 [facility] CHEMISTRY Calcium Lvl 7.8 8.5 - 10.5 09/07/2012 [facility] HEMATOLOGY Basophils # 0.0 0.0 - 0.2 09/07/2012 Normal [facility] HEMATOLOGY Eosinophils # 0.0 0.0 - 0.5 09/07/2012 Normal [facility] HEMATOLOGY Monocytes # 0.8 0.0 - 0.8 09/07/2012 Normal [facility] HEMATOLOGY Lymphocytes # 0.9 1.0 - 5.5 09/07/2012 [facility] HEMATOLOGY Segs-Bands # 8.9 1.5 - 8.1 09/07/[address] [facility] HEMATOLOGY Basophils 0.1 0.0 - 1.0 09/07/2012 Normal [facility] HEMATOLOGY Eosinophils 0.1 0.0 - 4.0 09/07/2012 [facility] HEMATOLOGY Monocytes 7.9 2.0 - 12.0 09/07/2012 Normal [facility] HEMATOLOGY Lymphocytes 8.7 20.0 - 40.0 09/07/2012 [facility] HEMATOLOGY Segs 83.2 45.0 - 75.0 09/07/[address] [facility] HEMATOLOGY MPV 7.3 7.4 - 10.4 09/07/2012 [facility] HEMATOLOGY Platelet 215 133 - 450 09/07/2012 Normal [facility] HEMATOLOGY Hgb 9.1 12.0 - 16.0 09/07/2012 [facility] HEMATOLOGY RBC 2.85 4.20 - 5.40 09/07/2012 LOW [facility] HEMATOLOGY WBC 10.6 3.7 - 10.4 09/07/2012 HI [facility] HEMATOLOGY RDW 14.1 11.5 - 14.5 09/07/2012 Normal [facility] HEMATOLOGY MCHC 34.6 32.0 - 36.0 09/07/2012 Normal [facility] HEMATOLOGY MCH 32.0 27.0 - 31.0 09/07/2012 HI [facility] HEMATOLOGY MCV 92.5 81.0 - 99.0 09/07/2012 Normal [facility] HEMATOLOGY Hct 26.4 36.0 - 48.0 09/07/2012 LOW [facility] IMMUNOLOGY Hep Bs Ag Negat sue *NA* (09/07/2012 03:51:00) Negati ve 09/07/2012 NA [facility] BACTERIAL - SEROLOGY MRSA by PCR Negative [...] after
consultation with an infectious diseases specialist. [facility] CHEMISTRY TSH 1.740 0.360 - 3.740 09/06/2012 Normal [facility] HEMATOLOGY MPV 7.1 7.4 - 10.4 09/06/2012 LOW [facility] HEMATOLOGY Platelet 224 133 - 450 09/06/2012 Normal [facility] HEMATOLOGY RDW 14.2 11.5 - 14.5 09/06/2012 Normal [facility] HEMATOLOGY MCH 32.0 27.0 - 31.0 09/06/2012 [place] [facility] HEMATOLOGY MCHC 34.4 32.0 - 36.0 09/06/2012 [...] HEMATOLOGY Segs 88.8 45.0 - 75.0 09/06/2012 [facility] CHEMISTRY ALT 28 0 - 65 09/05/2012 NA <sup>11</sup>Result Comment: Result obtained from lipoclear treated sample.09/05/2012 17:15:05 [facility], RP. [facility] CHEMISTRY Albumin Lvl 3.5 3.5 - 5.0 09/05/2012 Normal [facility] CHEMISTRY Alk Phos 136 39 - 136 09/05/2012 Normal [facility] CHEMISTRY AST 46 0 - 37 09/05/2012 [facility] CHEMISTRY Bili Total 0.5 0.2 - 1.3 09/05/2012 Normal [facility] CHEMISTRY Total Protein 8.7 6.4 - 8.4 09/05/2012 [facility] CHEMISTRY A/G Ratio 0.7 0.7 - 1.6 09/05/2012 Normal [facility] CHEMISTRY Globulin 5.2 2.0 - 4.0 09/05/2012 [facility] CHEMISTRY B/C Ratio 7 6 - 25 09/05/2012 Normal [facility] HEMATOLOGY Plt Morph Nicolasa l (09/05/2012 15:01:00) 09/05/2012 Normal [facility] HEMATOLOGY RBC Morph Nicolasa l (09/05/2012 15:01:00) 09/05/2012 Normal [facility] BEDSIDE GLUCOSE TESTING Gluc POC Lif scn 123 70 - 99 07/11/2012 [place] <sup>1</sup>Interpretive Data: Upper Reportable Limit: 200 mg/dL. [facility] BEDSIDE GLUCOSE TESTING Gluc POC Lif scn 68 70 - 99 07/11/2012 LOW <sup>2</sup>Interpretive Data: Upper Reportable Limit: 200 mg/dL. [facility] BEDSIDE GLUCOSE TESTING Comment1 Notify RN/ 07/11/2012 NA [facility] CHEMISTRY Magnesium Lvl 2.4 1.8 - 2.4 07/11/2012 Normal [facility] CHEMISTRY Calcium Lvl 8.1 8.5 - 10.5 07/11/2012 LOW [facility] CHEMISTRY AGAP 16.7 10.0 - 20.0 07/11/2012 Normal [facility] CHEMISTRY Sodium Lvl 129 135 - 145 07/11/2012 LOW [facility] CHEMISTRY Creatinine Lvl 4.3 0.5 - 1.4 07/11/2012 HI [facility] CHEMISTRY Chloride Lvl 93 95 - 109 07/11/2012 LOW [facility] CHEMISTRY Potassium Lvl 4.7 3.5 - 5.1 07/11/2012 Normal [facility] CHEMISTRY CO2 24 24 - 32 07/11/2012 Normal [facility] CHEMISTRY Glucose Lvl 81 70 - 99 07/11/2012 Normal <sup>7</sup>Interpretive Data: Adult ref erence range values reflect the clinical guidelines
of the [place] [employer]. [facility] CHEMISTRY BUN 41 7 - 22 07/11/2012 HI [facility] BEDSIDE GLUCOSE TESTING Comment1 Notify GI/ 07/11/2012 NA [facility] BEDSIDE GLUCOSE TESTING Gluc POC Lif scn 174 70 - 99 07/11/2012 [facility] <sup>3</sup>Interpretive Data: Upper Reportable Limit: 200 mg/dL. [facility] BEDSIDE GLUCOSE TESTING Comment1 Notify GI/ 07/10/2012 NA [facility] CHEMISTRY Magnesium Lvl 2.0 1.8 - 2.4 07/10/2012 Normal [facility] CHEMISTRY Chloride Lvl 97 95 - 109 07/10/2012 Normal [facility] CHEMISTRY Potassium Lvl 4.3 3.5 - 5.1 07/10/2012 Normal [facility] CHEMISTRY Calcium Lvl 7.3 8.5 - 10.5 07/10/2012 [facility] CHEMISTRY CO2 28 24 - 32 07/10/2012 Normal [facility] CHEMISTRY BUN 31 7 - 22 07/10/[address] [facility] CHEMISTRY Sodium Lvl 134 135 - 145 07/10/2012 [facility] CHEMISTRY Creatinine Lvl 3.9 0.5 - 1.4 07/10/[address] [facility] CHEMISTRY Glucose Lvl 96 70 - 99 07/10/2012 Normal <sup>8</sup>Interpretive Data: Adult ref erence range values reflect the clinical guidelines
of the [place] [employer]. [facility] CHEMISTRY AGAP 13.3 10.0 - 20.0 07/10/2012 Normal [facility] HEMATOLOGY MPV 5.9 7.4 - 10.4 07/10/2012 [facility] HEMATOLOGY MCHC 34.7 32.0 - 36.0 07/10/2012 Normal [facility] HEMATOLOGY MCH 32.8 27.0 - 31.0 07/10/[address] [facility] HEMATOLOGY Platelet 305 133 - 450 07/10/2012 Normal [facility] HEMATOLOGY RDW 16.2 11.5 - 14.5 07/10/[address] [facility] HEMATOLOGY MCV 94.3 81.0 - 99.0 07/10/2012 Normal [facility] HEMATOLOGY RBC 2.72 4.20 - 5.40 07/10/2012 [facility] HEMATOLOGY WBC 7.5 3.7 - 10.4 07/10/2012 Normal [facility] HEMATOLOGY Hct 25.6 36.0 - 48.0 07/10/2012 [facility] HEMATOLOGY Hgb 8.9 12.0 - 16.0 07/10/2012 [facility] HEMATOLOGY Basophils # 0.0 0.0 - 0.2 07/10/2012 Normal [facility] HEMATOLOGY Lymphocytes # 1.1 1.0 - 5.5 07/10/2012 Normal [facility] HEMATOLOGY Monocytes # 0.8 0.0 - 0.8 07/10/2012 Normal [facility] HEMATOLOGY Eosinophils # 0.3 0.0 - 0.5 07/10/2012 Normal [facility] HEMATOLOGY Basophils 0.3 0.0 - 1.0 07/10/2012 Normal [facility] HEMATOLOGY Segs-Bands # 5.3 1.5 - 8.1 07/10/2012 Normal [facility] HEMATOLOGY Lymphocytes 14.4 20.0 - 40.0 07/10/2012 LOW [facility] HEMATOLOGY Monocytes 10.6 2.0 - 12.0 07/10/2012 Normal [facility] HEMATOLOGY Eosinophils 4.0 0.0 - 4.0 07/10/2012 Normal [facility] HEMATOLOGY Segs 70.7 45.0 - 75.0 07/10/2012 Normal [facility] IMMUNOLOGY Hep Bs Ag Negat sue *NA* (07/08/2012 14:00:00) Negati ve 07/08/2012 NA [facility] CHEMISTRY Chloride Lvl 96 95 - 109 07/06/2012 Normal [facility] CHEMISTRY Potassium Lvl 4.4 3.5 - 5.1 07/06/2012 Normal [facility] CHEMISTRY Sodium Lvl 131 135 - 145 07/06/2012 LOW [facility] CHEMISTRY eGFR 9 07/06/2012 NA <sup>4</sup>Result Comment: Expected eGFR for >20 yr. age group: >=60 ml/min/1.73 sq m

The eGFR calculation is not valid in or for

persons < 18 years of age.

From National Kidney Disease Education Program (NKDEP) [facility] CHEMISTRY AGAP 14.4 10.0 - 20.0 07/06/2012 Normal [facility] CHEMISTRY Calcium Lvl 7.3 8.5 - 10.5 07/06/2012 LOW [facility] CHEMISTRY CO2 25 24 - 32 07/06/2012 Normal [facility] CHEMISTRY Creatinine Lvl 5.3 0.5 - 1.4 07/06/[address] [facility] CHEMISTRY BUN 41 7 - 22 07/06/[address] [facility] CHEMISTRY Glucose Lvl 117 70 - 99 07/06/2012 [facility] <sup>9</sup>Interpretive Data: Adult ref erence range values reflect the clinical guidelines
of the [place] [employer]. [facility] CHEMISTRY Phosphorus 6.1 2.5 - 4.5 07/06/[address] [facility] CHEMISTRY Ferritin Lvl 1369 5 - 204 07/06/[address] [facility] CHEMISTRY Transferrin 186 212 - 360 07/06/2012 [facility] CHEMISTRY Iron 68 30 - 160 07/06/2012 [facility] CHEMISTRY TIBC 240 228 - 428 07/06/2012 [facility] CHEMISTRY % Satur Fe 28 12 - 57 07/06/2012 Normal [facility] CHEMISTRY UIBC 172 110 - 370 07/06/2012 Normal [facility] HEMATOLOGY Segs-Bands # 5.9 1.5 - 8.1 07/06/2012 Normal [facility] HEMATOLOGY Basophils 0.3 0.0 - 1.0 07/06/2012 [facility] HEMATOLOGY Segs 68.9 45.0 - 75.0 07/06/2012 Normal [facility] HEMATOLOGY Eosinophils # 0.4 0.0 - 0.5 07/06/2012 [facility] HEMATOLOGY Lymphocytes # 1.4 1.0 - 5.5 07/06/2012 [facility] HEMATOLOGY Monocytes # 0.9 0.0 - 0.8 07/06/[address] [facility] HEMATOLOGY Basophils # 0.0 0.0 - 0.2 07/06/2012 Normal [facility] HEMATOLOGY Eosinophils 4.7 0.0 - 4.0 07/06/[address] [facility] HEMATOLOGY Lymphocytes 16.1 20.0 - 40.0 07/06/2012 [facility] HEMATOLOGY Monocytes 10.0 2.0 - 12.0 07/06/2012 Normal [facility] HEMATOLOGY MCHC 34.0 32.0 - 36.0 07/06/2012 [facility] HEMATOLOGY RDW 17.4 11.5 - 14.5 07/06/[address] [facility] HEMATOLOGY Hgb 8.3 12.0 - 16.0 07/06/2012 [facility] HEMATOLOGY Platelet 211 133 - 450 07/06/2012 [facility] HEMATOLOGY MPV 6.5 7.4 - 10.4 07/06/2012 [facility] HEMATOLOGY RBC 2.56 4.20 - 5.40 07/06/2012 [facility] HEMATOLOGY MCV 95.7 81.0 - 99.0 07/06/2012 [facility] HEMATOLOGY MCH 32.6 27.0 - 31.0 07/06/[address] [facility] HEMATOLOGY Hct 24.5 36.0 - 48.0 07/06/2012 LOW [facility] HEMATOLOGY WBC 8.5 3.7 - 10.4 07/06/2012 Normal [facility] CHEMISTRY eGFR 8 07/04/2012 NA <sup>5</sup>Result Comment: [...] Ratio 9 6 - 25 07/04/2012 Normal [facility] CHEMISTRY Bili Total 0.7 0.2 - 1.3 07/04/2012 Normal [facility] CHEMISTRY AST 14 0 - 37 07/04/2012 Normal [facility] CHEMISTRY Globulin 3.4 2.0 - 4.0 07/04/2012 Normal [facility] CHEMISTRY A/G Ratio 0.9 0.7 - 1.6 07/04/2012 Normal [facility] CHEMISTRY ALT 28 0 - 65 07/04/2012 Normal [facility] CHEMISTRY Total Protein 6.6 6.4 - 8.4 07/04/2012 Normal [facility] CHEMISTRY Phosphorus 5.7 2.5 - 4.5 07/04/2012 HI [facility] HEMATOLOGY MPV 6.9 7.4 - 10.4 07/04/2012 LOW [facility] HEMATOLOGY Platelet 187 133 - 450 07/04/2012 Normal [facility] HEMATOLOGY RDW 18.2 11.5 - 14.5 07/04/[address] [facility] HEMATOLOGY WBC 9.9 3.7 - 10.4 07/04/2012 Normal [facility] HEMATOLOGY MCH 31.8 27.0 - 31.0 07/04/[address] [facility] HEMATOLOGY Hgb 8.5 12.0 - 16.0 07/04/2012 LOW [facility] HEMATOLOGY RBC 2.67 4.20 - 5.40 07/04/2012 LOW [facility] HEMATOLOGY MCV 96.7 81.0 - 99.0 07/04/2012 Normal [facility] HEMATOLOGY MCHC 32.8 32.0 - 36.0 07/04/2012 Normal [facility] HEMATOLOGY Hct 25.8 36.0 - 48.0 07/04/2012 LOW [facility] HEMATOLOGY Basophils # 0.0 0.0 - 0.2 07/04/2012 Normal [facility] HEMATOLOGY Monocytes # 0.5 0.0 - 0.8 07/04/2012 Normal [facility] HEMATOLOGY Segs-Bands # 8.2 1.5 - 8.1 07/04/2012 [facility] HEMATOLOGY Eosinophils # 0.2 0.0 - 0.5 07/04/2012 Normal [facility] HEMATOLOGY Lymphocytes # 1.0 1.0 - 5.5 07/04/2012 Normal [facility] HEMATOLOGY Basophils 0.2 0.0 - 1.0 07/04/2012 Normal [facility] HEMATOLOGY Lymphocytes 9.7 20.0 - 40.0 07/04/2012 LOW [facility] HEMATOLOGY Eosinophils 2.1 0.0 - 4.0 07/04/2012 Normal [facility] HEMATOLOGY Monocytes 5.1 2.0 - 12.0 07/04/2012 Normal [facility] HEMATOLOGY Segs 82.9 45.0 - 75.0 07/04/2012 HI [facility] CHEMISTRY Albumin Lvl 3.7 3.5 - 5.0 07/03/2012 Normal [facility] CHEMISTRY ALT 32 0 - 65 07/03/2012 Normal [facility] CHEMISTRY Total Protein 7.5 6.4 - 8.4 07/03/2012 Normal [facility] CHEMISTRY B/C Ratio 8 6 - 25 07/03/2012 Normal [facility] CHEMISTRY Bili Total 0.5 0.2 - 1.3 07/03/2012 Normal [facility] CHEMISTRY Alk Phos 107 39 - 136 07/03/2012 Normal [facility] CHEMISTRY AST 14 0 - 37 07/03/2012 Normal [facility] CHEMISTRY Globulin 3.8 2.0 - 4.0 07/03/2012 Normal [facility] CHEMISTRY A/G Ratio 1.0 0.7 - 1.6 07/03/2012 Normal [facility] CHEMISTRY eGFR 9 07/03/2012 NA <sup>6</sup>Result Comment: Expected eGFR for >20 yr. age group: >=60 ml/min/1.73 sq m

The eGFR calculation is not valid in or for

persons < 18 years of age.

From National Kid[employer] Disease Education Program (NKDEP) [facility] Microbiology Culture: Blood 07/03/2012 [facility] CHEMISTRY CK MB Index 1.5 0.0 - 2.5 07/02/2012 Normal [facility] CHEMISTRY Phosphorus 7.1 2.5 - 4.5 07/02/2012 [facility] CHEMISTRY B/C Ratio 8 6 - 25 07/02/2012 Normal [facility] CHEMISTRY A/G Ratio 1.0 0.7 - 1.6 07/02/2012 Normal [facility] CHEMISTRY Globulin 3.6 2.0 - 4.0 07/02/2012 Normal [facility] CHEMISTRY Alk Phos 107 39 - 136 07/02/2012 Normal [facility] CHEMISTRY Bili Total 0.4 0.2 - 1.3 07/02/2012 Normal [facility] CHEMISTRY AST 21 0 - 37 07/02/2012 Normal [facility] CHEMISTRY ALT 38 0 - 65 07/02/2012 Normal [facility] CHEMISTRY Albumin Lvl 3.6 3.5 - 5.0 07/02/2012 Normal [facility] CHEMISTRY Total Protein 7.2 6.4 - 8.4 07/02/2012 Normal [facility] CHEMISTRY Magnesium Lvl 1.9 1.8 - 2.4 07/02/2012 Normal [facility] CHEMISTRY Troponin-I <0.02 0.00 - 0.40 07/02/2012 Normal [facility] CHEMISTRY CK MB 0.7 0.5 - 3.6 07/02/2012 Normal [facility] CHEMISTRY Total CK 48 12 - 191 07/02/2012 Normal [facility] CHEMISTRY CK MB Index <1.1 0.0 - 2.5 07/02/2012 Normal [facility] CHEMISTRY CK MB <0.5 0.5 - 3.6 07/02/2012 Normal [facility] CHEMISTRY Total CK 47 12 - 191 07/02/2012 Normal [facility] CHEMISTRY Troponin-I <0.02 0.00 - 0.40 07/02/2012 Normal [facility] Microbiology Culture: Urine 07/01/2012 [facility] URINALYSIS UA Urobilinogen 0.1 - 1.0 07/01/2012 NA [facility] URINALYSIS UA Color Cari 07/01/2012 [facility] URINALYSIS UA RBC 4 0 - 2 07/01/[address] [facility] URINALYSIS UA Mucus Few / LPF *NA* (06/30/2012 23:00:00) None S een 07/01/2012 [facility] URINALYSIS UA Bacteria Moder ate /HPF *ABN* (06/30/2012 23:00:00) None S een 07/01/2012 ABN [facility] URINALYSIS UA WBC >182 0 - 5 07/01/[address] [facility] URINALYSIS UA Bili Negat sue *NA* (06/30/2012 23:00:00) Negati ve 07/01/2012 [facility] URINALYSIS UA Ketones Negat sue mg/dL *NA* (06/30/2012 23:00:00) Negati ve 07/01/2012 NA [facility] URINALYSIS UA Nitrite Negat sue (06/30/2012 23:00:00) Negati ve 07/01/2012 Normal [facility] URINALYSIS UA Blood Negat sue (06/30/2012 23:00:00) Negati ve 07/01/2012 Normal [facility] URINALYSIS UA Leuk Est Large *ABN* (06/30/2012 23:00:00) Negati ve 07/01/2012 ABN [facility] URINALYSIS UA Glucose Negat sue mg/dL *NA* (06/30/2012 23:00:00) Negati ve 07/01/2012 NA [facility] URINALYSIS UA Protein >=300 mg/dL *ABN* (06/30/2012 23:00:00) Negati ve 07/01/2012 ABN [facility] URINALYSIS UA pH 6.0 5.0 - 8.0 07/01/2012 Normal [facility] URINALYSIS UA Sq Epi None Seen 07/01/2012 [facility] URINALYSIS UA Spec Grav 1.013 <=1.030 07/01/2012 Normal [facility] URINALYSIS UA Turbidity Marke d *ABN* (06/30/2012 23:00:00) Clear 07/01/2012 ABN [facility] CHEMISTRY Total CK 66 12 - 191 07/01/2012 Normal [facility] CHEMISTRY Troponin-I <0.02 0.00 - 0.40 07/01/2012 Normal [facility] CHEMISTRY CK MB 1.1 0.5 - 3.6 07/01/2012 Normal [facility] CHEMISTRY CK MB Index 1.7 0.0 - 2.5 07/01/2012 Normal [facility] BEDSIDE GLUCOSE TESTING Comment1 Notify GI/ 02/16/2012 NA [facility] BEDSIDE GLUCOSE TESTING Gluc POC Lif scn 97 70 - 99 02/16/2012 Normal <sup>7</sup>Interpretive Data: Upper Reportable Limit: 200 mg/dL. [facility] BEDSIDE GLUCOSE TESTING Comment1 Notify GI/ 02/16/2012 [facility] BEDSIDE GLUCOSE TESTING Gluc POC Lif scn 169 70 - 99 02/16/2012 [facility] <sup>8</sup>Interpretive Data: Upper Reportable Limit: 200 mg/dL. [facility] BEDSIDE GLUCOSE TESTING Gluc POC Lif scn 118 70 - 99 02/16/2012 [facility] <sup>9</sup>Interpretive Data: Upper Reportable Limit: 200 mg/dL. [facility] BEDSIDE GLUCOSE TESTING Comment1 Notify RN/ 02/16/2012 NA [facility] CHEMISTRY Chloride Lvl 94 95 - 109 02/16/2012 LOW [facility] CHEMISTRY Potassium Lvl 4.4 3.5 - 5.1 02/16/2012 Normal [facility] CHEMISTRY Sodium Lvl 133 135 - 145 02/16/2012 [facility] CHEMISTRY Creatinine Lvl 3.8 0.5 - 1.4 02/16/[address] [facility] CHEMISTRY BUN 32 7 - 22 02/16/[address] [facility] CHEMISTRY CO2 26 24 - 32 02/16/2012 Normal [facility] CHEMISTRY Calcium Lvl 8.3 8.5 - 10.5 02/16/2012 [facility] CHEMISTRY Glucose Lvl 98 70 - 99 02/16/2012 Normal <sup>13</sup>Interpretive Data: Adult re ference range values reflect the clinical guidelines of the [place] [employer]. [facility] CHEMISTRY AGAP 17.4 10.0 - 20.0 02/16/2012 Normal [facility] HEMATOLOGY Platelet 336 133 - 450 02/16/2012 Normal [facility] HEMATOLOGY MPV 7.0 7.4 - 10.4 02/16/2012 [facility] HEMATOLOGY WBC 5.6 3.7 - 10.4 02/16/2012 Normal [facility] HEMATOLOGY RBC 2.95 4.20 - 5.40 02/16/2012 [facility] HEMATOLOGY Hct 25.7 36.0 - 48.0 02/16/2012 [facility] HEMATOLOGY MCV 87.2 81.0 - 99.0 02/16/2012 Normal [facility] HEMATOLOGY Hgb 8.4 12.0 - 16.0 02/16/2012 LOW [facility] HEMATOLOGY MCHC 32.7 32.0 - 36.0 02/16/2012 Normal [facility] HEMATOLOGY RDW 17.9 11.5 - 14.5 02/16/[address] [facility] HEMATOLOGY MCH 28.5 27.0 - 31.0 02/16/2012 Normal [facility] HEMATOLOGY Lymphocytes 19.1 20.0 - 40.0 02/16/2012 [facility] HEMATOLOGY Segs 65.1 45.0 - 75.0 02/16/2012 Normal [facility] HEMATOLOGY Monocytes 9.5 2.0 - 12.0 02/16/2012 Normal [facility] HEMATOLOGY Eosinophils 5.8 0.0 - 4.0 02/16/[address] [facility] HEMATOLOGY Basophils 0.5 0.0 - 1.0 02/16/2012 Normal [facility] HEMATOLOGY Segs-Bands # 3.6 1.5 - 8.1 02/16/2012 Normal [facility] HEMATOLOGY Lymphocytes # 1.1 1.0 - 5.5 02/16/2012 Normal [facility] HEMATOLOGY Eosinophils # 0.3 0.0 - 0.5 02/16/2012 Normal [facility] HEMATOLOGY Monocytes # 0.5 0.0 - 0.8 02/16/2012 Normal [facility] HEMATOLOGY Basophils # 0.0 0.0 - 0.2 02/16/2012 Normal [facility] BEDSIDE GLUCOSE TESTING Comment2 Notify RN/MD 02/16/2012 NA [facility] CHEMISTRY Total Protein 7.3 6.4 - 8.4 02/15/2012 Normal [facility] CHEMISTRY Albumin Lvl 2.9 3.5 - 5.0 02/15/2012 LOW [facility] CHEMISTRY AST 8 0 - 37 02/15/2012 Normal [facility] CHEMISTRY Bili Total 0.6 0.2 - 1.3 02/15/2012 Normal [facility] CHEMISTRY Alk Phos 125 39 - 136 02/15/2012 Normal [facility] CHEMISTRY ALT 10 0 - 65 02/15/2012 Normal [facility] CHEMISTRY Chloride Lvl 92 95 - 109 02/15/2012 LOW [facility] CHEMISTRY Calcium Lvl 8.7 8.5 - 10.5 02/15/2012 Normal [facility] CHEMISTRY CO2 23 24 - 32 02/15/2012 LOW [facility] CHEMISTRY Potassium Lvl 5.1 3.5 - 5.1 02/15/2012 Normal [facility] CHEMISTRY AGAP 18.1 10.0 - 20.0 02/15/2012 Normal [facility] CHEMISTRY A/G Ratio 0.7 0.7 - 1.6 02/15/2012 Normal [facility] CHEMISTRY B/C Ratio 10 6 - 25 02/15/2012 Normal [facility] CHEMISTRY Globulin 4.4 2.0 - 4.0 02/15/[address] [facility] CHEMISTRY eGFR 8 02/15/2012 NA <sup>10</sup>Result Comment: Expected eGFR for >20 yr. age group: >=60 ml/min/1.73 sq m The eGFR calculation is not valid in or for persons < 18 years of age. From National Kidney Disease Education Program (NKDEP) [facility] CHEMISTRY Sodium Lvl 128 135 - 145 02/15/2012 [facility] CHEMISTRY Creatinine Lvl 5.8 0.5 - 1.4 02/15/2012 [facility] CHEMISTRY BUN 57 7 - 22 02/15/2012 [facility] CHEMISTRY Glucose Lvl 129 70 - 99 02/15/2012 [facility] <sup>14</sup>Interpretive Data: Adult re ference range values reflect the clinical guidelines of the [place] [employer]. [facility] HEMATOLOGY MPV 6.8 7.4 - 10.4 02/15/2012 LOW [facility] HEMATOLOGY MCH 29.3 27.0 - 31.0 02/15/2012 Normal [facility] HEMATOLOGY Platelet 311 133 - 450 02/15/2012 Normal [facility] HEMATOLOGY RDW 18.1 11.5 - 14.5 02/15/[address] [facility] HEMATOLOGY MCHC 33.9 32.0 - 36.0 02/15/2012 Normal [facility] HEMATOLOGY MCV 86.6 81.0 - 99.0 02/15/2012 Normal [facility] HEMATOLOGY Hct 26.2 36.0 - 48.0 02/15/2012 LOW [facility] HEMATOLOGY WBC 7.1 3.7 - 10.4 02/15/2012 Normal [facility] HEMATOLOGY Hgb 8.9 12.0 - 16.0 02/15/2012 [facility] HEMATOLOGY RBC 3.03 4.20 - 5.40 02/15/2012 [facility] HEMATOLOGY Basophils # 0.0 0.0 - 0.2 02/15/2012 Normal [facility] HEMATOLOGY Lymphocytes # 1.1 1.0 - 5.5 02/15/2012 Normal [facility] HEMATOLOGY Eosinophils # 0.4 0.0 - 0.5 02/15/2012 Normal [facility] HEMATOLOGY Monocytes # 0.5 0.0 - 0.8 02/15/2012 Normal [facility] HEMATOLOGY Segs 70.9 45.0 - 75.0 02/15/2012 Normal [facility] HEMATOLOGY Basophils 0.3 0.0 - 1.0 02/15/2012 Normal [facility] HEMATOLOGY Segs-Bands # 5.0 1.5 - 8.1 02/15/2012 Normal [facility] HEMATOLOGY Lymphocytes 15.3 20.0 - 40.0 02/15/2012 [facility] HEMATOLOGY Monocytes 7.4 2.0 - 12.0 02/15/2012 Normal [facility] HEMATOLOGY Eosinophils 6.1 0.0 - 4.0 02/15/2012 [facility] CHEMISTRY BUN 50 7 - 22 02/14/2012 [facility] CHEMISTRY Glucose Lvl 103 70 - 99 02/14/2012 [facility] <sup>15</sup>Interpretive Data: Adult re ference range values reflect the clinical guidelines of the [place] [employer]. [facility] CHEMISTRY eGFR 10 02/14/2012 NA <sup>11</sup>Result Comment: Expected eGFR for >20 yr. age group: >=60 ml/min/1.73 sq m The eGFR calculation is not valid in or for persons < 18 years of age. From National Kid[employer] Disease Education Program (NKDEP) [facility] CHEMISTRY AGAP 20.2 10.0 - 20.0 02/14/2012 [facility] CHEMISTRY Globulin 4.6 2.0 - 4.0 02/14/2012 [facility] CHEMISTRY B/C Ratio 10 6 - 25 02/14/2012 Normal [facility] CHEMISTRY A/G Ratio 0.7 0.7 - 1.6 02/14/2012 Normal [facility] CHEMISTRY ALT 16 0 - 65 02/14/2012 Normal [facility] CHEMISTRY Albumin Lvl 3.0 3.5 - 5.0 02/14/2012 LOW [facility] CHEMISTRY Bili Total 0.4 0.2 - 1.3 02/14/2012 Normal [facility] CHEMISTRY Alk Phos 122 39 - 136 02/14/2012 Normal [facility] CHEMISTRY AST 18 0 - 37 02/14/2012 Normal [facility] CHEMISTRY Chloride Lvl 94 95 - 109 02/14/2012 LOW [facility] CHEMISTRY Potassium Lvl 5.2 3.5 - 5.1 02/14/[address] [facility] CHEMISTRY Calcium Lvl 8.8 8.5 - 10.5 02/14/2012 Normal [facility] CHEMISTRY CO2 21 24 - 32 02/14/2012 LOW [facility] CHEMISTRY Total Protein 7.6 6.4 - 8.4 02/14/2012 Normal [facility] CHEMISTRY Creatinine Lvl 4.9 0.5 - 1.4 02/14/[address] [facility] CHEMISTRY Sodium Lvl 130 135 - 145 02/14/2012 LOW [facility] CHEMISTRY Lipase Lvl 127 73 - 393 02/14/2012 Normal [facility] CHEMISTRY Amylase Lvl 54 25 - 115 02/14/2012 Normal [facility] HEMATOLOGY RDW 18.4 11.5 - 14.5 02/14/[address] [facility] HEMATOLOGY Platelet 356 133 - 450 02/14/2012 Normal [facility] HEMATOLOGY MPV 6.7 7.4 - 10.4 02/14/2012 LOW [facility] HEMATOLOGY MCHC 33.3 32.0 - 36.0 02/14/2012 Normal [facility] HEMATOLOGY MCH 28.8 27.0 - 31.0 02/14/2012 Normal [facility] HEMATOLOGY MCV 86.6 81.0 - 99.0 02/14/2012 Normal [facility] HEMATOLOGY RBC 3.24 4.20 - 5.40 02/14/2012 LOW [facility] HEMATOLOGY WBC 9.4 3.7 - 10.4 02/14/2012 Normal [facility] HEMATOLOGY Hgb 9.3 12.0 - 16.0 02/14/2012 LOW [facility] HEMATOLOGY Hct 28.1 36.0 - 48.0 02/14/2012 LOW [facility] HEMATOLOGY Eosinophils # 0.4 0.0 - 0.5 02/14/2012 Normal [facility] HEMATOLOGY Basophils # 0.0 0.0 - 0.2 02/14/2012 Normal [facility] HEMATOLOGY Monocytes # 0.4 0.0 - 0.8 02/14/2012 Normal [facility] HEMATOLOGY Segs-Bands # 7.3 1.5 - 8.1 02/14/2012 Normal [facility] HEMATOLOGY Lymphocytes # 1.3 1.0 - 5.5 02/14/2012 Normal [facility] HEMATOLOGY Basophils 0.3 0.0 - 1.0 02/14/2012 Normal [facility] HEMATOLOGY Plt Morph Nicolasa l (02/14/2012 06:10:00) 02/14/2012 Normal [facility] HEMATOLOGY RBC Morph Nicolasa l (02/14/2012 06:10:00) 02/14/2012 Normal [facility] HEMATOLOGY Monocytes 4.6 2.0 - 12.0 02/14/2012 Normal [facility] HEMATOLOGY Segs 77.5 45.0 - 75.0 02/14/2012 [facility] HEMATOLOGY Eosinophils 4.2 0.0 - 4.0 02/14/2012 [facility] HEMATOLOGY Lymphocytes 13.4 20.0 - 40.0 02/14/2012 LOW [facility] BODY FLUIDS Bili BF Type Abdo mn *NA* (02/12/2012 13:24:00) 02/12/2012 NA [facility] BODY FLUIDS Bili BF 0.5 02/12/2012 NA <sup>1</sup>Interpretive Data: No established reference ranges. [facility] BODY FLUIDS Clarity BF Maricarmen r (02/12/2012 13:24:00) Clear 02/12/2012 Normal [facility] BODY FLUIDS RBC BF 148 02/12/2012 NA <sup>4</sup>Interpretive Data: No established reference ranges. [facility] BODY FLUIDS Color BF [place] ow (02/12/2012 13:24:00) Colorl ess 02/12/2012 Normal [facility] BODY FLUIDS WBC BF 21 02/12/2012 NA <sup>5</sup>Interpretive Data: No established reference ranges. [facility] BODY FLUIDS CellCnt BF Type Abdo mn (02/12/2012 13:24:00) 02/12/2012 Normal [facility] BODY FLUIDS Eos BF 5 02/12/2012 NA [facility] BODY FLUIDS Macrophage BF 5 02/12/2012 NA [facility] BODY FLUIDS Segs BF 70 02/12/2012 NA <sup>6</sup>Interpretive Data: No established reference ranges. [facility] BODY FLUIDS [place] BF Occa sional (02/12/2012 13:24:00) 02/12/2012 Normal [facility] FLUIDS Lymph BF 20 02/12/2012 NA [facility] BODY FLUIDS Prot BF Type Abdo mn *NA* (02/12/2012 13:24:00) 02/12/2012 NA [facility] BODY FLUIDS Protein BF 6.2 02/12/2012 NA <sup>2</sup>Interpretive Data: No establ ished reference ranges. [facility] BODY FLUIDS LDH BF Type Abdo mn *NA* (02/12/2012 13:24:00) 02/12/2012 NA [facility] BODY FLUIDS LDH BF 410 02/12/2012 NA <sup>3</sup>Interpretive Data: No established reference ranges. [facility] Microbiology Culture: Aspirate/Body Fluid/Tissue 02/12/2012 [facility] CHEMISTRY Phosphorus 4.8 2.5 - 4.5 02/12/[address] [facility] CHEMISTRY eGFR 13 02/12/2012 NA <sup>12</sup>Result Comment: Expected eGFR for >20 yr. age group: >=60 ml/min/1.73 sq m The eGFR calculation is not valid in or for persons < 18 years of age. From National Kidney Disease Education Program (NKDEP) [facility] BEDSIDE GLUCOSE TESTING Comment2 Notify RN/ 02/11/2012 [facility] BEDSIDE GLUCOSE TESTING Comment3 Notify RN/ 02/10/2012 [facility] BEDSIDE GLUCOSE TESTING Comment2 Verify w/ Lab 02/10/2012 NA [facility] Microbiology Culture: Urine 02/01/2012 [facility] CHEMISTRY Alk Phos 104 39 - 136 02/01/2012 Normal [facility] CHEMISTRY ALT 12 0 - 65 02/01/2012 Normal [facility] CHEMISTRY Albumin Lvl 2.9 3.5 - 5.0 02/01/2012 LOW [facility] CHEMISTRY Total Protein 7.6 6.4 - 8.4 02/01/2012 Normal [facility] CHEMISTRY AST 15 0 - 37 02/01/2012 Normal [facility] CHEMISTRY Bili Total 0.3 0.2 - 1.3 02/01/2012 Normal [facility] CHEMISTRY A/G Ratio 0.6 0.7 - 1.6 02/01/2012 LOW [facility] CHEMISTRY Globulin 4.7 2.0 - 4.0 02/01/2012 [place] [facility] CHEMISTRY B/C Ratio 10 6 - 25 02/01/2012 Normal [facility] HEMATOLOGY Large Plt Sligh t *ABN* (01/31/2012 20:00:00) None S een 02/01/2012 ABN [facility] HEMATOLOGY RBC Morph Nicolasa l (01/31/2012 20:00:00) 02/01/2012 Normal [facility] HEMATOLOGY PTT 29.6 22.9 - 35.8 02/01/2012 Normal <sup>17</sup>Interpretive Data: Heparin Therapeutic Range: 57 - 92 Seconds [facility] HEMATOLOGY PT 14.5 12.0 - 14.7 02/01/2012 Normal [facility] INR 1.13 0.85 - 1.17 02/01/2012 Normal <sup>16</sup>Interpretive Data: RECOMMEN DED RANGES FOR PROTIME INR: 2.0-3.0 for most medical and surgical thromboembolic states. 2.5-3.5 for artificial heart valves and recurrent embolism. INR SHOULD BE USED ONLY FOR PATIENTS ON STABLE ANTICOAGULANT THERAPY. [facility] URINALYSIS UA Glucose Negat sue (01/31/2012 19:06:00) Negati ve 02/01/2012 Normal [facility] URINALYSIS UA Protein >=300 mg/dL *ABN* (01/31/2012 19:06:00) Negati ve 02/01/2012 ABN [facility] URINALYSIS UA Ketones Negat sue *NA* (01/31/2012 19:06:00) Negati ve 02/01/2012 NA [facility] URINALYSIS UA Bili Negat sue (01/31/2012 19:06:00) Negati ve 02/01/2012 Normal [facility] URINALYSIS UA Blood Large *ABN* (01/31/2012 19:06:00) Negati ve 02/01/2012 ABN [facility] URINALYSIS UA Nitrite Posit sue *ABN* (01/31/2012 19:06:00) Negati ve 02/01/2012 ABN [facility] URINALYSIS UA Urobilinogen 1.0 0.1 - 1.0 02/01/2012 Normal [facility] URINALYSIS UA Leuk Est Trace *ABN* (01/31/2012 19:06:00) Negati ve 02/01/2012 ABN [facility] URINALYSIS UA pH 6.5 5.0 - 8.0 02/01/2012 Normal [facility] URINALYSIS UA Color Red *ABN* (01/31/2012 19:06:00) Yellow 02/01/2012 ABN [facility] URINALYSIS UA Turbidity Blood y *ABN* (01/31/2012 19:06:00) Clear 02/01/2012 ABN [facility] URINALYSIS UA Spec Grav 1.010 <=1.030 02/01/2012 Normal [facility] URINALYSIS UA Bacteria Few / HPF (01/31/2012 19:06:00) None S een 02/01/2012 Normal [facility] URINALYSIS UA RBC Packe d *ABN* (01/31/2012 19:06:00) 0 - 2 02/01/2012 ABN [facility] URINALYSIS UA WBC 3-5 / HPF (01/31/2012 19:06:00) None S een 02/01/2012 Normal [facility] URINALYSIS UA Sq Epi Few / LPF (01/31/2012 19:06:00) Few 02/01/2012 Normal [facility] URINALYSIS Micro? Perfo rmed (01/31/2012 19:06:00) 02/01/2012 Normal [facility] BEDSIDE GLUCOSE TESTING Gluc POC Lif scn 164 70 - 99 01/29/2012 [place] <sup>1</sup>Interpretive Data: Upper Reportable Limit: 200 mg/dL. [facility] BEDSIDE GLUCOSE TESTING Comment1 Notify ELLEN 01/29/2012 NA [facility] BEDSIDE GLUCOSE TESTING Comment1 Notify ELLEN 01/29/2012 NA [facility] BEDSIDE GLUCOSE TESTING Gluc POC Lif scn 191 70 - 99 01/29/2012 [facility] <sup>2</sup>Interpretive Data: Upper Reportable Limit: 200 mg/dL. [facility] CHEMISTRY % Satur Fe 18 12 - 57 01/29/2012 Normal [facility] CHEMISTRY Iron 58 30 - 160 01/29/2012 Normal [facility] CHEMISTRY TIBC 327 228 - 428 01/29/2012 Normal [facility] CHEMISTRY UIBC 269 110 - 370 01/29/2012 Normal [facility] HEMATOLOGY Eosinophils # 0.5 0.0 - 0.5 01/29/2012 Normal [facility] HEMATOLOGY Basophils # 0.0 0.0 - 0.2 01/29/2012 Normal [facility] HEMATOLOGY Monocytes 8.8 2.0 - 12.0 01/29/2012 Normal [facility] HEMATOLOGY Eosinophils 6.0 0.0 - 4.0 01/29/2012 [facility] HEMATOLOGY Basophils 0.3 0.0 - 1.0 01/29/2012 Normal [facility] HEMATOLOGY Lymphocytes 8.6 20.0 - 40.0 01/29/2012 LOW [facility] HEMATOLOGY Segs-Bands # 6.4 1.5 - 8.1 01/29/2012 Normal [facility] HEMATOLOGY Monocytes # 0.7 0.0 - 0.8 01/29/2012 Normal [facility] HEMATOLOGY Lymphocytes # 0.7 1.0 - 5.5 01/29/2012 LOW [facility] HEMATOLOGY Segs 76.3 45.0 - 75.0 01/29/[address] [facility] HEMATOLOGY MPV 7.9 7.4 - 10.4 01/29/2012 Normal [facility] HEMATOLOGY Hct 26.8 36.0 - 48.0 01/29/2012 LOW [facility] HEMATOLOGY MCV 86.9 81.0 - 99.0 01/29/2012 Normal [facility] HEMATOLOGY MCH 28.3 27.0 - 31.0 01/29/2012 Normal [facility] HEMATOLOGY WBC 8.4 3.7 - 10.4 01/29/2012 Normal [facility] HEMATOLOGY Hgb 8.7 12.0 - 16.0 01/29/2012 LOW [facility] HEMATOLOGY RBC 3.08 4.20 - 5.40 01/29/2012 LOW [facility] HEMATOLOGY RDW 18.1 11.5 - 14.5 01/29/[address] [facility] HEMATOLOGY MCHC 32.5 32.0 - 36.0 01/29/2012 Normal [facility] HEMATOLOGY Platelet 282 133 - 450 01/29/2012 Normal [facility] BEDSIDE GLUCOSE TESTING Comment1 Notify GI/ 01/29/2012 NA [facility] BEDSIDE GLUCOSE TESTING Gluc POC Lif scn 131 70 - 99 01/29/2012 [facility] <sup>3</sup>Interpretive Data: Upper Reportable Limit: 200 mg/dL. [facility] HEMATOLOGY Segs 74.0 45.0 - 75.0 01/27/2012 Normal [facility] HEMATOLOGY Lymphocytes 10.7 20.0 - 40.0 01/27/2012 LOW [facility] HEMATOLOGY Monocytes 8.7 2.0 - 12.0 01/27/2012 Normal [facility] HEMATOLOGY Basophils 0.3 0.0 - 1.0 01/27/2012 Normal [facility] HEMATOLOGY Eosinophils 6.3 0.0 - 4.0 01/27/2012 [facility] HEMATOLOGY Basophils # 0.0 0.0 - 0.2 01/27/2012 Normal [facility] HEMATOLOGY Eosinophils # 0.5 0.0 - 0.5 01/27/2012 Normal [facility] HEMATOLOGY Segs-Bands # 6.1 1.5 - 8.1 01/27/2012 Normal [facility] HEMATOLOGY Monocytes # 0.7 0.0 - 0.8 01/27/2012 Normal [facility] HEMATOLOGY Lymphocytes # 0.9 1.0 - 5.5 01/27/2012 LOW [facility] HEMATOLOGY RBC 3.17 4.20 - 5.40 01/27/2012 [facility] HEMATOLOGY Hgb 9.1 12.0 - 16.0 01/27/2012 [facility] HEMATOLOGY MCH 28.6 27.0 - 31.0 01/27/2012 Normal [facility] HEMATOLOGY MCV 87.4 81.0 - 99.0 01/27/2012 Normal [facility] HEMATOLOGY Hct 27.7 36.0 - 48.0 01/27/2012 [facility] HEMATOLOGY RDW 17.2 11.5 - 14.5 01/27/[address] [facility] HEMATOLOGY Platelet 289 133 - 450 01/27/2012 Normal [facility] HEMATOLOGY MCHC 32.7 32.0 - 36.0 01/27/2012 Normal [facility] HEMATOLOGY MPV 8.0 7.4 - 10.4 01/27/2012 Normal [facility] HEMATOLOGY WBC 8.3 3.7 - 10.4 01/27/2012 Normal [facility] CHEMISTRY Phosphorus 4.0 2.5 - 4.5 01/27/2012 Normal [facility] CHEMISTRY AGAP 17.6 10.0 - 20.0 01/27/2012 Normal [facility] CHEMISTRY Calcium Lvl 8.3 8.5 - 10.5 01/27/2012 LOW [facility] CHEMISTRY eGFR 13 01/27/2012 NA <sup>9</sup>Result Comment: Expected eGFR for >20 yr. age group: >=60 ml/min/1.73 sq m The eGFR calculation is not valid in or for persons < 18 years of age. From National Kidney Disease Education Program (NKDEP) [facility] CHEMISTRY Creatinine Lvl 3.8 0.5 - 1.4 01/27/[address] [facility] CHEMISTRY BUN 38 7 - 22 01/27/[address] [facility] CHEMISTRY Glucose Lvl 96 70 - 99 01/27/2012 Normal <sup>12</sup>Interpretive Data: Adult re ference range values reflect the clinical guidelines of the [place] [employer]. [facility] CHEMISTRY CO2 26 24 - 32 01/27/2012 Normal [facility] CHEMISTRY Potassium Lvl 4.6 3.5 - 5.1 01/27/2012 Normal [facility] CHEMISTRY Chloride Lvl 100 95 - 109 01/27/2012 Normal [facility] CHEMISTRY Sodium Lvl 139 135 - 145 01/27/2012 Normal [facility] IMMUNOLOGY Hep B Core Ab Negat sue *NA* (01/26/2012 17:45:00) Negati ve 01/26/2012 NA [facility] BEDSIDE GLUCOSE TESTING Comment2 Notify RN/MD 01/26/2012 [facility] BEDSIDE GLUCOSE TESTING Comment2 Notify RN/ 01/26/2012 [facility] BEDSIDE GLUCOSE TESTING Comment2 Notify RN/MD 01/26/2012 NA [facility] CHEMISTRY AGAP 14.4 10.0 - 20.0 01/24/2012 Normal [facility] CHEMISTRY Glucose Lvl 105 70 - 99 01/24/2012 [facility] <sup>13</sup>Interpretive Data: Adult re ference range values reflect the clinical guidelines of the [place] [employer]. [facility] CHEMISTRY BUN 30 7 - 22 01/24/[address] [facility] CHEMISTRY Sodium Lvl 139 135 - 145 01/24/2012 Normal [facility] CHEMISTRY Calcium Lvl 8.0 8.5 - 10.5 01/24/2012 LOW [facility] CHEMISTRY Chloride Lvl 98 95 - 109 01/24/2012 Normal [facility] CHEMISTRY Creatinine Lvl 3.7 0.5 - 1.4 01/24/[address] [facility] CHEMISTRY Potassium Lvl 4.4 3.5 - 5.1 01/24/2012 Normal [facility] CHEMISTRY CO2 31 24 - 32 01/24/2012 Normal [facility] HEMATOLOGY Basophils # 0.0 0.0 - 0.2 01/24/2012 Normal [facility] HEMATOLOGY Eosinophils # 0.4 0.0 - 0.5 01/24/2012 Normal [facility] HEMATOLOGY Lymphocytes # 0.8 1.0 - 5.5 01/24/2012 LOW [facility] HEMATOLOGY Monocytes # 0.8 0.0 - 0.8 01/24/2012 Normal [facility] HEMATOLOGY Eosinophils 6.2 0.0 - 4.0 01/24/[address] [facility] HEMATOLOGY Basophils 0.3 0.0 - 1.0 01/24/2012 Normal [facility] HEMATOLOGY Segs-Bands # 5.0 1.5 - 8.1 01/24/2012 Normal [facility] HEMATOLOGY Segs 70.5 45.0 - 75.0 01/24/2012 Normal [facility] HEMATOLOGY Lymphocytes 11.6 20.0 - 40.0 01/24/2012 [facility] HEMATOLOGY Monocytes 11.4 2.0 - 12.0 01/24/2012 Normal [facility] HEMATOLOGY RDW 17.1 11.5 - 14.5 01/24/[address] [facility] HEMATOLOGY Platelet 280 133 - 450 01/24/2012 Normal [facility] HEMATOLOGY MPV 7.5 7.4 - 10.4 01/24/2012 Normal [facility] HEMATOLOGY MCH 28.3 27.0 - 31.0 01/24/2012 Normal [facility] HEMATOLOGY MCHC 32.6 32.0 - 36.0 01/24/2012 Normal [facility] HEMATOLOGY Hgb 8.7 12.0 - 16.0 01/24/2012 [facility] HEMATOLOGY Hct 26.6 36.0 - 48.0 01/24/2012 [facility] HEMATOLOGY MCV 86.8 81.0 - 99.0 01/24/2012 Normal [facility] HEMATOLOGY WBC 7.0 3.7 - 10.4 01/24/2012 Normal [facility] HEMATOLOGY RBC 3.06 4.20 - 5.40 01/24/2012 [facility] BLOOD BANK RESULTS RBC product Product available 6 (01/23/2012 08:35:00) 01/23/2012 Normal <sup>6</sup>Result Comment: 01/23/2012 10:07 ELZBIETA Called to Arlyn at 01/23/2012 10:07. [facility] BLOOD BANK RESULTS ABO/Rh O POS 01/23/2012 Unknown [facility] BLOOD BANK RESULTS Antibody Scrn Negative (01/23/2012 08:35:00) 01/23/2012 Normal [facility] CHEMISTRY eGFR 12 01/23/2012 NA <sup>10</sup>Result Comment: Expected eGFR for >20 yr. age group: >=60 ml/min/1.73 sq m The eGFR calculation is not valid in or for persons < 18 years of age. From National Kidney Disease Education Program (NKDEP) [facility] CHEMISTRY AGAP 14.5 10.0 - 20.0 01/23/2012 Normal [facility] CHEMISTRY Sodium Lvl 138 135 - 145 01/23/2012 Normal [facility] CHEMISTRY CO2 29 24 - 32 01/23/2012 Normal [facility] CHEMISTRY Calcium Lvl 8.1 8.5 - 10.5 01/23/2012 LOW [facility] CHEMISTRY Potassium Lvl 4.5 3.5 - 5.1 01/23/2012 Normal [facility] CHEMISTRY Chloride Lvl 99 95 - 109 01/23/2012 Normal [facility] CHEMISTRY BUN 48 7 - 22 01/23/[address] [facility] CHEMISTRY Glucose Lvl 81 70 - 99 01/23/2012 Normal <sup>14</sup>Interpretive Data: Adult re ference range values reflect the clinical guidelines of the [place] [employer]. [facility] CHEMISTRY Creatinine Lvl 4.2 0.5 - 1.4 01/23/[address] [facility] URINALYSIS UA Bacteria Few / HPF (01/22/2012 09:25:00) None S een 01/22/2012 Normal [facility] URINALYSIS UA WBC 3-5 / HPF (01/22/2012 09:25:00) None S een 01/22/2012 Normal [facility] URINALYSIS UA RBC Packe d *ABN* (01/22/2012 09:25:00) 0 - 2 01/22/2012 ABN [facility] URINALYSIS UA Sq Epi Few / LPF (01/22/2012 09:25:00) Few 01/22/2012 Normal [facility] URINALYSIS UA Turbidity Turbi d *ABN* (01/22/2012 09:25:00) Clear 01/22/2012 ABN [facility] URINALYSIS UA Spec Grav 1.015 <=1.030 01/22/2012 Normal [facility] URINALYSIS UA Leuk Est Moder ate *ABN* (01/22/2012 09:25:00) Negati ve 01/22/2012 ABN [facility] URINALYSIS UA Urobilinogen 1.0 0.1 - 1.0 01/22/2012 Normal [facility] URINALYSIS UA Blood Large *ABN* (01/22/2012 09:25:00) Negati ve 01/22/2012 ABN [facility] URINALYSIS UA pH 7.5 5.0 - 8.0 01/22/2012 Normal [facility] URINALYSIS UA Protein >=300 mg/dL *ABN* (01/22/2012 09:25:00) Negati ve 01/22/2012 ABN [facility] URINALYSIS UA Glucose Negat sue (01/22/2012 09:25:00) Negati ve 01/22/2012 Normal [facility] URINALYSIS UA Ketones Trace *ABN* (01/22/2012 09:25:00) Negati ve 01/22/2012 ABN [facility] URINALYSIS UA Color Red *ABN* (01/22/2012 09:25:00) Yellow 01/22/2012 ABN [facility] URINALYSIS UA Nitrite Posit sue *ABN* (01/22/2012 09:25:00) Negati ve 01/22/2012 ABN [facility] URINALYSIS UA Bili Negat sue 4 (01/22/2012 09:25:00) Negati ve 01/22/2012 Normal <sup>4</sup>Result Comment: Confirmed by [employer]ct[employer]. [facility] Microbiology Culture: Urine 01/22/2012 [facility] CHEMISTRY Phosphorus 3.5 2.5 - 4.5 01/22/2012 Normal [facility] CHEMISTRY eGFR 13 01/22/2012 NA <sup>11</sup>Result Comment: Expected eGFR for >20 yr. age group: >=60 ml/min/1.73 sq m The eGFR calculation is not valid in or for persons < 18 years of age. From National Kidney Disease Education Program (NKDEP) [facility] CHEMISTRY Magnesium Lvl 2.3 1.8 - 2.4 01/20/2012 Normal [facility] CHEMISTRY Phosphorus 5.3 2.5 - 4.5 01/20/2012 [place] [facility] Microbiology Culture: Urine 01/19/2012 [facility] CHEMISTRY Ferritin Lvl 118 5 - 204 01/18/2012 Normal [facility] CHEMISTRY UIBC 328 110 - 370 01/18/2012 Normal [facility] CHEMISTRY % Satur Fe 8 12 - 57 01/18/2012 LOW [facility] CHEMISTRY Iron 30 30 - 160 01/18/2012 Normal [facility] CHEMISTRY TIBC 358 228 - 428 01/18/2012 Normal [facility] HEMATOLOGY Retic Auto 2.6 0.5 - 1.5 01/18/2012 [place] [facility] CHEMISTRY U Creatinine 40.3 01/17/2012 NA <sup>15</sup>Interpretive Data: No estab lished reference ranges. [facility] CHEMISTRY U Sodium 36 01/17/2012 NA <sup>18</sup>Interpretive Data: No established reference ranges. [facility] URINALYSIS UA Urobilinogen 0.2 0.1 - 1.0 01/17/2012 Normal [facility] URINALYSIS UA Nitrite Negat sue (01/17/2012 14:40:00) Negati ve 01/17/2012 Normal [facility] [facility] URINALYSIS UA Leuk Est Trace *ABN* (01/17/2012 14:40:00) Negati ve 01/17/2012 ABN [facility] URINALYSIS UA WBC 6-10 /HPF *ABN* (01/17/2012 14:40:00) None S een 01/17/2012 ABN [facility] URINALYSIS UA Sq Epi Few / LPF (01/17/2012 14:40:00) Few 01/17/2012 Normal [facility] URINALYSIS UA RBC Packe d *ABN* (01/17/2012 14:40:00) 0 - 2 01/17/2012 ABN [facility] URINALYSIS UA Mucus Few / LPF (01/17/2012 14:40:00) None S een 01/17/2012 Normal [facility] URINALYSIS UA Bacteria Few / HPF (01/17/2012 14:40:00) None S een 01/17/2012 Normal [facility] URINALYSIS UA pH 6.5 5.0 - 8.0 01/17/2012 Normal [facility] URINALYSIS UA Turbidity Sligh t Cloudy (01/17/2012 14:40:00) Clear 01/17/2012 Normal [facility] URINALYSIS UA Spec Grav 1.010 <=1.030 01/17/2012 Normal [facility] URINALYSIS UA Color Yello w *NA* (01/17/2012 14:40:00) Yellow 01/17/2012 NA [facility] URINALYSIS UA Protein >=300 mg/dL *ABN* (01/17/2012 14:40:00) Negati ve 01/17/2012 ABN [facility] URINALYSIS UA Ketones Negat sue *NA* (01/17/2012 14:40:00) Negati ve 01/17/2012 NA [facility] URINALYSIS UA Glucose Negat sue (01/17/2012 14:40:00) Negati ve 01/17/2012 Normal [facility] URINALYSIS UA Blood Large *ABN* (01/17/2012 14:40:00) Negati ve 01/17/2012 ABN [facility] URINALYSIS UA Bili Negat sue *NA* (01/17/2012 14:40:00) Negati ve 01/17/2012 NA [facility] HEMATOLOGY Hypochrom Sligh t (01/17/2012 05:10:00) None S een 01/17/2012 Normal [facility] HEMATOLOGY Plt Morph Nicolasa l (01/17/2012 05:10:00) 01/17/2012 Normal [facility] BLOOD BANK RESULTS RBC product Product available 7 (01/15/2012 12:48:00) 01/15/2012 Normal <sup>7</sup>Result Comment: 01/16/2012 07:44 INGRIS called to esthela 01/16/2012 7:44 [facility] HEMATOLOGY Retic Auto 3.8 0.5 - 1.5 01/15/2012 HI [facility] BLOOD BANK RESULTS RBC product Product available 8 (01/14/2012 17:05:00) 01/14/2012 Normal <sup>8</sup>Result Comment: 01/14/2012 21:16 [id number] Called to VERENA at _01/14/2012 2030 by _TDH. [facility] BLOOD BANK RESULTS Antibody Scrn Negative (01/14/2012 10:15:00) 01/14/2012 Normal [facility] BLOOD BANK RESULTS ABO/Rh O POS 01/14/2012 Unknown [facility] HEMATOLOGY Plt Morph Nicolasa l (01/14/2012 06:20:00) 01/14/2012 Normal [facility] HEMATOLOGY Polychrom Sligh t (01/14/2012 06:20:00) None S een 01/14/2012 Normal [facility] HEMATOLOGY Hypochrom Sligh t (01/14/2012 06:20:00) None S een 01/14/2012 Normal [facility] HEMATOLOGY Retic Auto 4.3 0.5 - 1.5 01/14/2012 HI [facility] HEMATOLOGY Chrom Kat BM CYTOG ENETIC RESULT: 46,XX[20] INTERPRETATION: NORMAL FEMALE KARYOTYPE. TEST PERFORMED AT [facility] [employer] [facility], [address] [place], [place] [id number] 01/13/2012 NA <sup>19</sup>Interpretive Data: Test Per formed by [employer] [address] [facility] [address] [facility] REFERENCE LAB RESULTS [facility] FISH RESULT: NORMAL MDS PANEL. 45 01/13/2012 NA [facility] REFERENCE LAB RESULTS Test Name MDS profile 01/13/2012 Unknown [facility] CHEMISTRY Magnesium Lvl 2.1 1.8 - 2.4 01/13/2012 Normal [facility] IMMUNOLOGY Hep C Ab Negat sue *NA* (01/11/2012 04:52:00) Negati ve 01/11/2012 NA [facility] IMMUNOLOGY Hep A IgM Negat sue *NA* (01/11/2012 04:52:00) Negati ve 01/11/2012 NA [facility] IMMUNOLOGY Hep Bs Ag Negat sue *NA* (01/11/2012 04:52:00) Negati ve 01/11/2012 NA [facility] IMMUNOLOGY Hep B Core IgM Negat sue *NA* (01/11/2012 04:52:00) Negati ve 01/11/2012 NA [facility] CHEMISTRY CK MB Index 0.5 0.0 - 2.5 01/10/2012 Normal [facility] CHEMISTRY Troponin-I <0.02 0.00 - 0.40 01/10/2012 Normal [facility] CHEMISTRY CK MB 0.9 0.5 - 3.6 01/10/2012 Normal [facility] CHEMISTRY Total CK 177 12 - 191 01/10/2012 Normal [facility] HEMATOLOGY D-Dimer 3.68 01/10/2012 NA <sup>22</sup>Interpretive Data: [...] Mode Art Cpap (01/10/2012 16:12:00) 01/10/2012 Normal [facility] CHEMISTRY Temp Art 37.0 01/10/2012 NA [facility] CHEMISTRY Site Art Right Ra (01/10/2012 16:12:00) 01/10/2012 Normal [facility] CHEMISTRY pCO2 Art 41 35 - 45 01/10/2012 Normal [facility] CHEMISTRY pO2 Art 75 80 - 100 01/10/2012 LOW [facility] CHEMISTRY HCO3 Art 15 22 - 26 01/10/2012 LOW [facility] CHEMISTRY BE Art -11 -2-2 - 2 01/10/2012 LOW [facility] CHEMISTRY pH Art 7.21 7.35 - 7.45 01/10/2012 LOW [facility] CHEMISTRY O2 Sat Art 91.4 95.0 - 100.0 01/10/2012 [facility] BEDSIDE GLUCOSE TESTING Comment3 Notify RN/MD 01/10/2012 [facility] CHEMISTRY Ca Norm 0.93 1.16 - 1.30 01/09/2012 LOW [facility] CHEMISTRY Ca Ion 1.01 1.16 - 1.30 01/09/2012 [facility] CHEMISTRY Ca Ion mgdL 4.04 4.65 - 5.20 01/09/2012 [facility] CHEMISTRY Ca Norm mgdL 3.72 4.65 - 5.20 01/09/2012 [facility] CHEMISTRY B/C Ratio 14 6 - 25 01/09/2012 Normal [facility] CHEMISTRY A/G Ratio 0.6 0.7 - 1.6 01/09/2012 LOW [facility] CHEMISTRY Globulin 4.1 2.0 - 4.0 01/09/2012 [facility] CHEMISTRY AST 5 0 - 37 01/09/2012 Normal [facility] CHEMISTRY Alk Phos 92 39 - 136 01/09/2012 [facility] CHEMISTRY Albumin Lvl 2.3 3.5 - 5.0 01/09/2012 LOW [facility] CHEMISTRY Total Protein 6.4 6.4 - 8.4 01/09/2012 Normal [facility] CHEMISTRY ALT 9 0 - 65 01/09/2012 Normal [facility] CHEMISTRY Bili Total 0.4 0.2 - 1.3 01/09/2012 Normal [facility] CHEMISTRY Bili Total 0.3 0.2 - 1.3 01/08/2012 Normal [facility] CHEMISTRY Bili Direct 0.2 0.0 - 0.3 01/08/2012 Normal [facility] CHEMISTRY Bili Indirect 0.1 0.0 - 1.0 01/08/2012 Normal [facility] CHEMISTRY S-9-Kkvxbteri 19.5 1.0 - 2.3 01/08/2012 [facility] [...] Lvl 2.4 1.8 - 2.4 01/08/2012 Normal [facility] HEMATOLOGY RBC Morph Nicolasa l (01/08/2012 05:10:00) [...] Ratio 15 6 - 25 01/06/2012 Normal [facility] CHEMISTRY Globulin 4.0 2.0 - 4.0 01/06/2012 Normal [facility] CHEMISTRY Erythropoietin 69.6 3.7 - 29.5 01/06/2012 HI [facility] BLOOD BANK RESULTS AB Int Anti-M 01/05/2012 Unknown [facility] BLOOD BANK RESULTS AB Int IgG Antibody 01/05/2012 Unknown [facility] HEMATOLOGY INR 1.16 0.85 - 1.17 01/05/2012 Normal <sup>20</sup>Interpretive Data: RECOMMEN DED RANGES FOR PROTIME INR: 2.0-3.0 for most medical and surgical thromboembolic states. 2.5-3.5 for artificial heart valves and recurrent embolism. INR SHOULD BE USED ONLY FOR PATIENTS ON STABLE ANTICOAGULANT THERAPY. [facility] HEMATOLOGY PT 14.8 12.0 - 14.7 01/05/[address] [facility] BLOOD BANK RESULTS ABO/Rh O POS 01/05/2012 Unknown [facility] BLOOD BANK RESULTS Antibody Scrn Positive 5 (01/05/2012 11:46:00) 01/05/2012 Normal <sup>5</sup>Result Comment: 01/05/2012 14:42 ELZBIETA "Significant Findings called to Jennifer at 01/05/2012 14:42 by [email or web address].Read Back OK." [facility] CHEMISTRY Total CK 109 12 - 191 01/05/2012 Normal [facility] URINALYSIS UA [place] Yeast Few / HPF *ABN* (01/04/2012 13:00:00) None S een 01/04/2012 ABN [facility] URINALYSIS UA Amorph Ashly Few / HPF *ABN* (01/04/2012 13:00:00) None S een 01/04/2012 ABN [facility] URINALYSIS UA RBC 51-10 0 /HPF *ABN* (01/04/2012 13:00:00) 0 - 2 01/04/2012 ABN [facility] URINALYSIS UA Bacteria Few / HPF (01/04/2012 13:00:00) None S een 01/04/2012 Normal [facility] URINALYSIS UA Sq Epi Few / LPF (01/04/2012 13:00:00) Few 01/04/2012 Normal [facility] URINALYSIS UA WBC 3-5 / HPF (01/04/2012 13:00:00) None S een 01/04/2012 Normal [facility] URINALYSIS UA Nitrite Negat sue (01/04/2012 13:00:00) Negati ve 01/04/2012 Normal [facility] URINALYSIS UA Urobilinogen 0.2 0.1 - 1.0 01/04/2012 Normal [facility] URINALYSIS UA Leuk Est Negat sue (01/04/2012 13:00:00) Negati ve 01/04/2012 Normal [facility] URINALYSIS UA pH 6.0 5.0 - 8.0 01/04/2012 Normal [facility] URINALYSIS UA Spec Grav 1.025 <=1.030 01/04/2012 Normal [facility] URINALYSIS UA Turbidity Clear (01/04/2012 13:00:00) Clear 01/04/2012 Normal [facility] URINALYSIS UA Color Yello w *NA* (01/04/2012 13:00:00) Yellow 01/04/2012 NA [facility] URINALYSIS UA Blood Large *ABN* (01/04/2012 13:00:00) [...] *ABN* (01/04/2012 13:00:00) Negati ve 01/04/2012 ABN [facility] Microbiology Culture: Blood 01/04/2012 [facility] Microbiology Culture: Blood 01/04/2012 [facility] CHEMISTRY ALT 16 0 - 65 01/04/2012 Normal [facility] CHEMISTRY A/G Ratio 0.7 0.7 - 1.6 01/04/2012 Normal [facility] CHEMISTRY Alk Phos 137 39 - 136 01/04/2012 HI [facility] CHEMISTRY Globulin 3.9 2.0 - 4.0 01/04/2012 Normal [facility] CHEMISTRY AST 9 0 - 37 01/04/2012 Normal [facility] CHEMISTRY Albumin Lvl 2.8 3.5 - 5.0 01/04/2012 LOW [facility] CHEMISTRY Total Protein 6.7 6.4 - 8.4 01/04/2012 Normal [facility] CHEMISTRY Bili Indirect 0.2 0.0 - 1.0 01/04/2012 Normal [facility] CHEMISTRY Bili Direct 0.1 0.0 - 0.3 01/04/2012 Normal [facility] IMMUNOLOGY GBM Ab IgG <1.0 NEG <1.0 01/04/2012 NA <sup>24</sup>Result Comment: Test Perfor med at: [employer] [facility] [address] [place] [address] Ariadne Johnson MD, PhD [facility] IMMUNOLOGY RF Qnt <10 0 - 20 01/04/2012 Normal [facility] CHEMISTRY Ferritin Lvl 19 5 - 204 01/03/2012 Normal [facility] CHEMISTRY Total CK 41 12 - 191 01/02/2012 Normal [facility] IMMUNOLOGY U [place] Pattern Not p rovided 01/02/2012 NA [facility] U [place] Interp Urine immunofixation electrophoresis reveals a polyclonal pattern of immunoglobulins. No monoclonal proteins are identified. Interpretation performed at [facility]. 01/02/2012 NA [facility] IMMUNOLOGY Tot Prot (UPE) 244 01/02/2012 NA [facility] Interp (UPE) Urine protein consists primarily of albumin. No monoclonal bands are identified. Interpretation performed at [facility]. 01/02/2012 [facility] IMMUNOLOGY Spec Type (UPE) ran u a x 50. 01/02/2012 NA [facility] HEMATOLOGY RBC Morph Nicolasa l (01/01/2012 06:44:00) 01/01/2012 Normal [facility] IMMUNOLOGY P-ANCA Negat sue (01/01/2012 06:44:00) Negati ve 01/01/2012 Normal [facility] IMMUNOLOGY C-ANCA Negat sue (01/01/2012 06:44:00) Negati ve 01/01/2012 Normal [facility] IMMUNOLOGY [place] Ser Interp Serum immunofixation electrophoresis reveals a polyclonal pattern of immunoglobulins. No monoclonal proteins are identified. Interpretation performed at [facility]. 01/01/2012 NA [facility] IMMUNOLOGY [place] Ser Pattern Not p rovided 01/01/2012 NA [facility] IMMUNOLOGY Tot Prot (SPE) 6.2 6.4 - 8.4 01/01/2012 LOW [facility] IMMUNOLOGY SPE Interp Total protein is decreased with a corresponding decrease in serum albumin. All globulin fractions are present in a normal distribution with minor nonspecific changes. No unequivocal monoclonal proteins are identified. Interpretation performed at [facility]. 01/01/2012 NA [facility] IMMUNOLOGY Albumin % 47.4 55.8 - 66.1 01/01/2012 LOW [facility] IMMUNOLOGY Albumin (SPE) 2.94 3.57 - 5.55 01/01/2012 LOW [facility] IMMUNOLOGY Gamma % 16.2 11.1 - 18.7 01/01/2012 Normal [facility] IMMUNOLOGY Beta % 15.2 7.8 - 13.7 01/01/2012 [facility] IMMUNOLOGY Alpha 2 % 16.0 7.0 - 11.9 01/01/2012 [facility] IMMUNOLOGY Alpha 1 % 5.2 2.8 - 4.9 01/01/2012 HI [facility] IMMUNOLOGY Gamma Glob 1.00 0.71 - 1.57 01/01/2012 Normal [facility] IMMUNOLOGY Beta Glob 0.94 0.50 - 1.15 01/01/2012 Normal [facility] IMMUNOLOGY Alpha 2 Glob 0.99 0.45 - 1.00 01/01/2012 Normal [facility] IMMUNOLOGY Alpha 1 Glob 0.32 0.18 - 0.41 01/01/2012 Normal [facility] IMMUNOLOGY C3 Complement 143 88 - 201 01/01/2012 Normal [facility] IMMUNOLOGY C4 Complement 39 16 - 47 01/01/2012 Normal [facility] IMMUNOLOGY VY Negat sue (01/01/2012 06:44:00) Negati ve 01/01/2012 Normal [facility] CHEMISTRY U Prot/Creat 1.6 12/31/2011 NA [facility] CHEMISTRY U Creatinine 106.6 12/31/2011 NA <sup>16</sup>Interpretive Data: No estab lished reference ranges. [facility] CHEMISTRY U Protein 166.8 12/31/2011 NA <sup>17</sup>Interpretive Data: No estab lished reference ranges. [facility] IMMUNOLOGY Hep C Ab Negat sue *NA* (12/31/2011 09:45:00) Negati ve 12/31/2011 NA [facility] IMMUNOLOGY Hep Bs Ag Negat sue *NA* (12/31/2011 09:45:00) Negati ve 12/31/2011 NA [facility] IMMUNOLOGY HIV 1/2 Ab Negat sue *NA* (12/31/2011 09:45:00) Negati ve 12/31/2011 NA [facility] INR 0.97 0.85 - 1.17 12/31/2011 Normal <sup>21</sup>Interpretive Data: RECOMMEN DED RANGES FOR PROTIME INR: 2.0-3.0 for most medical and surgical thromboembolic states. 2.5-3.5 for artificial heart valves and recurrent embolism. INR SHOULD BE USED ONLY FOR PATIENTS ON STABLE ANTICOAGULANT THERAPY. [facility] PTT 35.6 22.9 - 35.8 12/31/2011 Normal <sup>23</sup>Interpretive Data: Heparin Therapeutic Range: 57 - 92 Seconds [facility] PT 12.9 12.0 - 14.7 12/31/2011 Normal [facility] Pathology Reports No Data Provided for This Section Diagnostic Reports Report Value Date Source Neck wo contrast MRA Patient N jim: TAI GRANT : 1960; Age: 57 years y/o Female MR: [id number] Study: Neck wo contrast MRA 11/27/2017 8:22 AM CARE TAKER Ordering Physician: Tiffanie Saenz MD Clinical Indication: [...] IMPRESSION: Unremarkable MRA of the neck. SL: [id number] 11/27/2017 [facility] Brain wo contrast MRA Patient Name: TAI GRANT : 1960; Age: 57 years y/o Female MR: [id number] Study: Brain wo contrast MRA 11/27/2017 8:21 AM CARE TAKER Ordering Physician: Tiffanie Saenz MD Clinical Indication: - R29.818 Other symptoms and signs involving the nervous system; Comparison: None Technique: Magnetic resonance angiography of the [place] of [place] was performed without contrast. 3D reconstructed images were created. FINDINGS: Flow is not seen within either posterior communicating artery. No evidence for intracranial stenosis or intracranial aneurysm. SL: [id number] 11/27/2017 [facility] Abdomen 2 views DX ABDOMEN, 1 VIEW HISTORY: Abdominal pain, acute; right lower quadrant pain COMPARISON: 01/11/2015 FINDINGS: Bowel gas pattern is nonobstructive. Embolization coils in the right abdomen again noted. No acute osseous abnormality. SL: [id number] 06/08/2016 [facility] Abdomen/Pelvis wo IV contrast CT Patient Name: TAI GRANT : 1960; Age: 56 years Female MR: [id number] Study: Abdomen/Pelvis wo IV contrast CT 06/05/2016 [...] 6. Postcholecystectomy. 7. Post bariatric surgery. SL: [id number] 06/05/2016 [facility] Chest 1view DX Chest 1view DX CLINICAL [...] Tissues: No significant abnormality is evident. SL: [id number] 06/05/2016 [facility] Hip contrast MRI MR RIGHT H IP [...] 2. Normal right hip articulation. SL: 04/16/2015 [facility] Hip contrast CT CT scan of the [...] joint fluid collection is noted. SL:12 04/15/2015 [facility] Spine lumbar 2 or 3 views DX [...] acute fracture, dislocation or spondylolisthesis noted. SL:04/15/2015 [facility] Ext Lower Arterial Doppler unilat US EXAM: [...] plaque or hemodynamically significant stenosis. SL: 04/15/2015 [facility] Abdomen/Pelvis w IV contrast CT EXAMINATION: CT [...] intra-abdominal/pelvic abnor mality. 2. Hepatosplenomegaly. SL: 04/15/2015 [facility] Abdomen wo IV contrast CT EXAM INATION: [...] of bowel obstruction. 2. Hepatosplenomegaly. SL: 01/11/2015 [facility] Abdomen 2 views DX Examination : Abdomen, [...] Nonobstructive bowel gas pattern. SL: 16 01/11/2015 [facility] HVI VAS Arterial Extracranial Doppler Bi Indications [...] was noted in the vertebral arteries. 11/15/2014 [facility] Upper GI w Barium swallow DX [...] Fluoro time: 2 minutes. SL: 13 10/12/2014 [facility] 1view Examination: Chest x-ray, single view History: Abnormal chest sounds Comparison: 10/08/2014 Findings: Right internal jugular central line is stable. Cardiac silhouette is normal in size. Diffuse perihilar interstitial opacities are stable, concerning for mild pulmonary edema. There is no pleural effusion or pneumothorax. The osseous structures are without focal abnormality. IMPRESSION: Stable exam of the chest. SL: 16 10/10/2014 [facility] Brain wo contrast CT CT BRAIN WITHOUT CONTRAST: TECHNIQUE: Axial images were done without contrast. FINDINGS: There is no significant parenchymal abnormality, hemorrhage, infarct, mass, or shift. The ventricles and extra-axial spaces are within normal limits. There is no significant osseous abnormality. There is no significant change compared to 10/05/2014. IMPRESSION: No acute CT abnormality of the brain. SL:13 10/08/2014 [facility] Chest 1view HISTORY: Line plac ement. One view chest. Comparison 10/08/2014 at 0147 hours. New right jugular central venous catheter tip is in the SVC. There is no pneumothorax. Cardiomegaly with pulmonary congestion, as before. No pleural effusion. SL:13 10/08/2014 [facility] Chest 1view Chest one view: Exam reason: Chest pain See Clinic Indication Inspiratory effort is intervally improved; however, there is interval worsening left parahilar consolidative opacity and worsening pulmonary vascular congestion present bilaterally. Otherwise, allowing for differences in technique and inspiratory effort, there is no significant interval change from the previous exam, 10/05/2014. Detail is limited by patient body habitus. SL:12 10/08/2014 [facility] Abdomen/Pelvis wo IV contrast CT CT ABDOMEN [...] in the abdomen or pelvis. SL:13 10/06/2014 [facility] Abdomen 2 views Examination: A bdomen, 2 views History: Abdominal pain, chronic Comparison: Acute abdominal series from 09/19/2014 Findings: Multiple views of the abdomen show a nonobstructive bowel gas pattern. No intraperitoneal free air is seen. Embolization coils and surgical clips in the right abdomen are seen. Osseous structures are stable. IMPRESSION: Nonobstructive bowel gas pattern. SL: 16 10/05/2014 [facility] Brain wo contrast CT Examinati on: CT [...] No acute intracranial abnormality. SL: 16 10/05/2014 [facility] Chest 1view HISTORY: Syncope. One view portable chest. Comparison 09/19/2014. Poor inspiration accentuates the cardiac silhouette and vascular markings. The cardiac silhouette is however enlarged. A component of mild vascular congestion may also be considered. There is no other acute infiltrate or pleural effusion. SL:13 10/05/2014 [facility] Brain wo contrast CT CT BRAIN WITHOUT CONTRAST INDICATION: Headache with dizziness COMPARISON: CT brain 08/01/2014 FINDINGS: There is no evidence of acute vascular insults, space occupying lesions, hemorrhage, hydrocephalus, midline shift, or extra-axial collections. The calvarium is intact. IMPRESSION: No acute intracranial abnormalities are visualized. SL: 16 09/19/2014 [facility] Abdomen/Pelvis w IV contrast CT CT CHEST, [...] achalasia. 4. Mild diverticulosis. SL: 16 09/19/2014 [facility] Chest w contrast CT CT CHEST, ABDOMEN, [...] achalasia. 4. Mild diverticulosis. SL: 16 09/19/2014 [facility] Abdomen acute series w chest 1 view [...] Osseous structures are unremarkable. SL: 13 09/19/2014 [facility] Abdomen acute series w chest 1 view [...] noted on the abdomen series. SL:13 09/03/2014 [facility] Brain/Neck CTA CTA HEAD AND NE CK [...] as the denominator for stenosis measurement.' 08/01/2014 [facility] Chest 2 views NAME: TAI GRANT : [...] about the thoracic spine. SL: 12 08/01/2014 [facility] Brain wo contrast CT NAME: TAI MCCLAIN [...] head CT without contrast. SL: 12 08/01/2014 [facility] Chest 1view HISTORY: Fever. One view portable [...] Central line in satisfactory position SL:13 11/23/2013 [facility] Abdomen wo IV contrast CT HIST ORY: [...] anasarca changes within the flanks. SL:13 11/20/2013 [facility] Chest 1view PROCEDURE: Chest 1view REASON FOR [...] Overlying leads limit detail. SL: 14 11/11/2013 [facility] Chest 1view PROCEDURE: Chest 1view REASON FOR EXAM: See Clinic Indication CLINICAL INFORMATION Coughing COMPARISON: 07/2013. 06/2013. 12/2012 multiple x-rays. The patient's chin limits assessment of the thoracic inlet. The lungs are hyperinflated. There are no infiltrates, effusions or pneumothorax. Moderate thoracic spondylosis is noted. The heart is mildly enlarged. SL: 14 11/10/2013 [facility] Abdomen 2 views ABDOMINAL RADI OGRAPH 2 [...] of the right kidney. SL: 13 08/05/2013 [facility] Abdomen/Pelvis w contrast CT C T ABDOMEN [...] be beneficial for further characterization. SL: 08/05/2013 [facility] Abdomen acute series comp w chest 1 [...] quadrant and right upper quadrant. SL: 08/03/2013 [facility] Abdomen complete US Abdominal Ultrasound: The study [...] acute ultrasound abnormality of the abdomen. SL:07/27/2013 [facility] Foot AP lateral Left foot 2 vi [...] the inferior margin of the calcaneus. SL:07/25/2013 [facility] Chest 2 views EXAM: Chest 2 views HISTORY: Dyspnea. COMPARISON: 01/12/2013. TECHNIQUE: Frontal and lateral views of the chest. FINDINGS: Heart size upper normal. No pneumonia, pulmonary edema or pleural effusion. Spondylosis thoracic spine. IMPRESSION: No acute findings in the chest. SL: 16 07/24/2013 [facility] Abdomen/Pelvis w contrast CT C T abdomen/pelvis [...] Postoperative changes as described. SL: 13 07/24/2013 [facility] Stomach UGI (water soluble contrast) Exam: UPPER GI SERIES Date: Jun 30, 2013 05:08:00 PM CLINICAL INDICATION: Gastric sleeve procedure FINDINGS: A multiple drum sander helper image demonstrates right upper quadrant cholecystectomy clips and nonobstructive bowel gas pattern. Two cups of water soluble contrast were administered. There is no leakage of contrast, and contrast passes through to the duodenum with no leak and no evidence of obstruction. IMPRESSION: No evidence of leak or obstruction following gastric sleeve procedure. 06/30/2013 [facility] Abdomen AP view EXAM: XR ABDOM [...] pation.. Interpreted by Kallie Isbell MD. 06/28/2013 [facility] Consultation Notes No Data Provided for This Section Discharge Summaries No Data Provided for This Section History and Physicals No Data Provided for This Section Vital Signs Vital Sign Value Date Comments Source Systolic (mm Hg) 129 06/10/2016 [facility] Diastolic (mm Hg) 74 06/10/2016 [facility] Heart Rate 94 06/10/2016 [facility] Respitory Rate 18 06/10/2016 [facility] Temperature Oral (F) 98.4 F 06/10/2016 [facility] Systolic (mm Hg) 120 06/10/2016 [facility] Diastolic (mm Hg) 76 06/10/2016 [facility] Temperature Oral (F) 98.3 F 06/10/2016 [facility] Respitory Rate 18 06/10/2016 [facility] Heart Rate 98 06/10/2016 [facility] Systolic (mm Hg) 118 06/10/2016 [facility] Diastolic (mm Hg) 66 06/10/2016 [facility] Heart Rate 86 06/10/2016 [facility] Respitory Rate 18 06/10/2016 [facility] Temperature Oral (F) 97.8 F 06/10/2016 [facility] Height 146.05 cm 06/06/2016 [facility] Weight 94.801 06/06/2016 [facility] BMI Calculated 44.44 06/06/2016 [facility] Height 144.78 cm 06/05/2016 [facility] BMI Calculated 45.54 06/05/2016 [facility] Weight 95.455 06/05/2016 [facility] BMI Calculated 45.54 06/05/2016 [facility] Height 144.78 cm 06/05/2016 [facility] Weight 95.455 06/05/2016 [facility] Systolic (mm Hg) 164 04/22/2015 [facility] Diastolic (mm Hg) 75 04/22/2015 [facility] Respitory Rate 18 04/22/2015 [facility] Heart Rate 76 04/22/2015 [facility] Temperature Oral (F) 98.7 F 04/22/2015 [facility] Respitory Rate 18 04/22/2015 [facility] Temperature Oral (F) 97.7 F 04/22/2015 [facility] Systolic (mm Hg) 136 04/22/2015 [facility] Diastolic (mm Hg) 66 04/22/2015 [facility] Heart Rate 78 04/22/2015 [facility] Systolic (mm Hg) 116 04/22/2015 [facility] Diastolic (mm Hg) 67 04/22/2015 [facility] Respitory Rate 18 04/22/2015 [facility] Temperature Oral (F) 97.6 F 04/22/2015 [facility] Heart Rate 71 04/22/2015 [facility] BMI Calculated 38.6 04/16/2015 [facility] Height 144.78 cm 04/16/2015 [facility] Weight 80.909 04/16/2015 [facility] Height 144.78 cm 04/16/2015 [facility] BMI Calculated 38.6 04/16/2015 [facility] Weight 80.909 04/16/2015 [facility] Weight 84.8 04/15/2015 [facility] BMI Calculated 40.46 04/15/2015 [facility] Height 144.78 cm 04/15/2015 [facility] Respitory Rate 20 01/11/2015 [facility] Temperature Oral (F) 98.0 F 01/11/2015 [facility] Heart Rate 72 01/11/2015 [facility] Systolic (mm Hg) 110 01/11/2015 [facility] Diastolic (mm Hg) 60 01/11/2015 [facility] Systolic (mm Hg) 120 01/11/2015 [facility] Diastolic (mm Hg) 56 01/11/2015 [facility] Heart Rate 78 01/11/2015 [facility] Respitory Rate 18 01/11/2015 [facility] Systolic (mm Hg) 143 01/11/2015 [facility] Diastolic (mm Hg) 69 01/11/2015 [facility] Heart Rate 78 01/11/2015 [facility] Respitory Rate 18 01/11/2015 [facility] Height 144.78 cm 01/11/2015 [facility] Weight 77.273 01/11/2015 [facility] BMI Calculated 36.86 01/11/2015 [facility] Temperature Oral (F) 97.8 F 01/11/2015 [facility] Heart Rate 80 11/27/2014 [facility] Diastolic (mm Hg) 78 11/27/2014 [facility] Systolic (mm Hg) 137 11/27/2014 [facility] Weight 80 0 11/27/2014 [facility] Height 144.78 cm 11/27/2014 [facility] BMI Calculated 38.17 11/27/2014 [facility] Temperature Oral (F) 97.1 F 11/27/2014 [facility] Heart Rate 83 11/06/2014 [facility] Respitory Rate 19 11/06/2014 [facility] Diastolic (mm Hg) 70 11/06/2014 [facility] Systolic (mm Hg) 149 11/06/2014 [facility] Height 151 cm 11/06/2014 [facility] BMI Calculated 35.26 11/06/2014 [facility] Weight 80.4 11/06/2014 [facility] Respitory Rate 18 09/19/2014 [facility] Heart Rate 82 09/19/2014 [facility] Temperature Oral (F) 98.3 F 09/19/2014 [facility] Diastolic (mm Hg) 83 09/19/2014 [facility] Systolic (mm Hg) 130 09/19/2014 [facility] Heart Rate 84 09/19/2014 [facility] Diastolic (mm Hg) 87 09/19/2014 [facility] Respitory Rate 18 09/19/2014 [facility] Systolic (mm Hg) 148 09/19/2014 [facility] Weight 84.007 09/19/2014 [facility] BMI Calculated 40.08 09/19/2014 [facility] Height 144.78 cm 09/19/2014 [facility] Respitory Rate 18 09/19/2014 [facility] Temperature Oral (F) 98.5 F 09/19/2014 [facility] Heart Rate 84 09/19/2014 [facility] Diastolic (mm Hg) 79 09/19/2014 [facility] Systolic (mm Hg) 132 09/19/2014 [facility] Heart Rate 70 09/03/2014 [facility] Respitory Rate 18 09/03/2014 [facility] Systolic (mm Hg) 132 09/03/2014 [facility] Diastolic (mm Hg) 72 09/03/2014 [facility] Systolic (mm Hg) 132 09/03/2014 [facility] Diastolic (mm Hg) 72 09/03/2014 [facility] Respitory Rate 20 09/03/2014 [facility] Heart Rate 76 09/03/2014 [facility] Heart Rate 83 09/03/2014 [facility] Systolic (mm Hg) 134 09/03/2014 [facility] Respitory Rate 20 09/03/2014 [facility] Diastolic (mm Hg) 67 09/03/2014 [facility] Height 144.78 cm 09/03/2014 [facility] Weight 77.273 09/03/2014 [facility] BMI Calculated 36.86 09/03/2014 [facility] Temperature Oral (F) 98.6 F 09/03/2014 [facility] Diastolic (mm Hg) 65 08/02/2014 [facility] Respitory Rate 18 08/02/2014 [facility] Systolic (mm Hg) 103 08/02/2014 [facility] Temperature Oral (F) 98.7 F 08/02/2014 [facility] Heart Rate 85 08/02/2014 [facility] Respitory Rate 18 08/02/2014 [facility] Heart Rate 81 08/02/2014 [facility] Temperature Oral (F) 98.9 F 08/02/2014 [facility] Diastolic (mm Hg) 62 08/02/2014 [facility] Systolic (mm Hg) 103 08/02/2014 [facility] Diastolic (mm Hg) 61 08/02/2014 [facility] Heart Rate 79 08/02/2014 [facility] Respitory Rate 18 08/02/2014 [facility] Systolic (mm Hg) 98 08/02/2014 [facility] Temperature Oral (F) 98.3 F 08/02/2014 [facility] Weight 72.273 08/02/2014 [facility] BMI Calculated 34.48 08/02/2014 [facility] Height 144.78 cm 08/02/2014 [facility] BMI Calculated 32.19 08/01/2014 [facility] Height 154.94 cm 08/01/2014 [facility] Weight 77.273 08/01/2014 [facility] Respitory Rate 16 11/29/2013 [facility] Systolic (mm Hg) 119 11/29/2013 [facility] Diastolic (mm Hg) 77 11/29/2013 [facility] Heart Rate 80 11/29/2013 [facility] Temperature Oral (F) 98.1 F 11/29/2013 [facility] Diastolic (mm Hg) 75 11/29/2013 [facility] Temperature Oral (F) 97.5 F 11/29/2013 [facility] Heart Rate 79 11/29/2013 [facility] Respitory Rate 16 11/29/2013 [facility] Systolic (mm Hg) 125 11/29/2013 [facility] Systolic (mm Hg) 105 11/29/2013 [facility] Diastolic (mm Hg) 67 11/29/2013 [facility] Heart Rate 71 11/29/2013 [facility] Respitory Rate 16 11/29/2013 [facility] Temperature Oral (F) 97.8 F 11/29/2013 [facility] [...] 08/03/2013 [facility] Diastolic (mm Hg) 68 08/03/2013 [facility] Respitory Rate 18 08/03/2013 [facility] Heart Rate 89 08/03/2013 [facility] Temperature Oral (F) 97.9 F 08/03/2013 [facility] Heart Rate 106 07/30/2013 [facility] Respitory Rate 18 07/30/2013 [facility] Systolic (mm Hg) 116 07/30/2013 [facility] Diastolic (mm Hg) 71 07/30/2013 [facility] Temperature Oral (F) 98.2 F 07/30/2013 [facility] Heart Rate 108 07/30/2013 [facility] Temperature Oral (F) 98.5 F 07/30/2013 [facility] Respitory Rate 17 07/30/2013 [facility] Systolic (mm Hg) 128 07/30/2013 [facility] Diastolic (mm Hg) 76 07/30/2013 [facility] Systolic (mm Hg) 100 07/30/2013 [facility] Respitory Rate 18 07/30/2013 [facility] Heart Rate 87 07/30/2013 [facility] Temperature Oral (F) 98.0 F 07/30/2013 [facility] Diastolic (mm Hg) 60 07/30/2013 [facility] Weight 90.909 07/24/2013 [facility] Height 149.86 cm 07/24/2013 [facility] Weight 104.545 07/24/2013 [facility] Systolic (mm Hg) 125 07/03/2013 [facility] Respitory Rate 19 07/03/2013 [facility] Diastolic (mm Hg) 62 07/03/2013 [facility] Heart Rate 69 07/03/2013 [facility] Temperature Oral (F) 98 F 07/03/2013 [facility] Systolic (mm Hg) 121 07/03/2013 [facility] Diastolic (mm Hg) 54 07/03/2013 [facility] Respitory Rate 18 07/03/2013 [facility] Heart Rate 71 07/03/2013 [facility] Temperature Oral (F) 97.9 F 07/03/2013 [facility] Systolic (mm Hg) 123 07/03/2013 [facility] Respitory Rate 18 07/03/2013 [facility] Diastolic (mm Hg) 60 07/03/2013 [facility] Heart Rate 63 07/03/2013 [facility] Temperature Oral (F) 97.4 F 07/03/2013 [facility] Weight 100.455 06/22/2013 [facility] Height 147.32 cm 06/22/2013 [facility] Height 147.32 cm 06/14/2013 [facility] Weight 105.909 06/14/2013 [facility] Height 144.78 cm 01/12/2013 [facility] Weight 100 01/12/2013 [facility] Weight 47.727 01/06/2013 [facility] Height 144.78 cm 01/06/2013 [facility] Heart Rate 91 12/28/2012 [facility] Temperature Oral (F) 98.3 F 12/28/2012 [facility] Diastolic (mm Hg) 70 12/28/2012 [facility] Systolic (mm Hg) 111 12/28/2012 [facility] Respitory Rate 20 12/28/2012 [facility] Systolic (mm Hg) 108 12/28/2012 [facility] Respitory Rate 20 12/28/2012 [facility] Temperature Oral (F) 97.8 F 12/28/2012 [facility] Diastolic (mm Hg) 66 12/28/2012 [facility] Respitory Rate 21 12/28/2012 [facility] Diastolic (mm Hg) 73 12/28/2012 [facility] Systolic (mm Hg) 119 12/28/2012 [facility] Temperature Oral (F) 97.7 F 12/28/2012 [facility] Heart Rate 74 12/28/2012 [facility] Heart Rate 66 12/28/2012 [facility] Weight 106.6 12/27/2012 [facility] Weight 106.6 12/27/2012 [facility] Height 146.05 cm 12/27/2012 [facility] Weight 102.727 12/26/2012 [facility] Height 144.78 cm 12/26/2012 [facility] Weight 105.000 12/05/2012 [facility] Height 144.78 cm 12/05/2012 [facility] Temperature Oral (F) 98.1 F 12/03/2012 [facility] Heart Rate 88 12/03/2012 [facility] Respitory Rate 18 12/03/2012 [facility] Systolic (mm Hg) 134 12/03/2012 [facility] Diastolic (mm Hg) 71 12/03/2012 [facility] Systolic (mm Hg) 106 12/03/2012 [facility] Diastolic (mm Hg) 63 12/03/2012 [facility] Respitory Rate 18 12/03/2012 [facility] Temperature Oral (F) 98.1 F 12/03/2012 [facility] Heart Rate 88 12/03/2012 [facility] Heart Rate 78 12/03/2012 [facility] Temperature Oral (F) 98.5 F 12/03/2012 [facility] Respitory Rate 18 12/03/2012 [facility] Systolic (mm Hg) 119 12/03/2012 [facility] Diastolic (mm Hg) 73 12/03/2012 [facility] Height 144.78 cm 11/30/2012 [facility] Weight 105.909 11/30/2012 [facility] Height 144.78 cm 11/30/2012 [facility] Weight 105.227 11/30/2012 [facility] Weight 102.727 11/29/2012 [facility] Height 149.86 cm 11/29/2012 [facility] Heart Rate 91 09/11/2012 [facility] Temperature Oral (F) 97.6 F 09/11/2012 [facility] Systolic (mm Hg) 133 09/11/2012 [facility] Respitory Rate 20 09/11/2012 [facility] Diastolic (mm Hg) 71 09/11/2012 [facility] Temperature Oral (F) 97.9 F 09/10/2012 [facility] Heart Rate 88 09/10/2012 [facility] Systolic (mm Hg) 151 09/10/2012 [facility] Respitory Rate 20 09/10/2012 [facility] Diastolic (mm Hg) 78 09/10/2012 [facility] Systolic (mm Hg) 150 09/10/2012 [facility] Respitory Rate 20 09/10/2012 [facility] Diastolic (mm Hg) 86 09/10/2012 [facility] Temperature Oral (F) 97.8 F 09/10/2012 [facility] Heart Rate 73 09/10/2012 [facility] Weight 100.000 09/05/2012 [facility] Height 157.48 cm 09/05/2012 [facility] Heart Rate 78 07/11/2012 [facility] Temperature Oral (F) 98.1 F 07/11/2012 [facility] Diastolic (mm Hg) 70 07/11/2012 [facility] Systolic (mm Hg) 146 07/11/2012 [facility] Respitory Rate 18 07/11/2012 [facility] Systolic (mm Hg) 134 07/11/2012 [facility] Diastolic (mm Hg) 80 07/11/2012 [facility] Respitory Rate 18 07/11/2012 [facility] Heart Rate 85 07/11/2012 [facility] Temperature Oral (F) 98.4 F 07/11/2012 [facility] Temperature Oral (F) 97.6 F 07/11/2012 [facility] Diastolic (mm Hg) 72 07/11/2012 [facility] Systolic (mm Hg) 128 07/11/2012 [facility] Respitory Rate 19 07/11/2012 [facility] Heart Rate 74 07/11/2012 [facility] Weight 115.909 07/01/2012 [facility] Height 154.94 cm 07/01/2012 [facility] Heart Rate 51 02/16/2012 [facility] Temperature Oral (F) 97.6 F 02/16/2012 [facility] Respitory Rate 18 02/16/2012 [facility] Systolic (mm Hg) 121 02/16/2012 [facility] Diastolic (mm Hg) 69 02/16/2012 [facility] Systolic (mm Hg) 114 02/16/2012 [facility] Respitory Rate 18 02/16/2012 [facility] Diastolic (mm Hg) 68 02/16/2012 [facility] Temperature Oral (F) 97.9 F 02/16/2012 [facility] Heart Rate 56 02/16/2012 [facility] Respitory Rate 18 02/16/2012 [facility] Diastolic (mm Hg) 63 02/16/2012 [facility] Heart Rate 57 02/16/2012 [facility] Temperature Oral (F) 98.3 F 02/16/2012 [facility] Systolic (mm Hg) 123 02/16/2012 [facility] Height 144.78 cm 02/01/2012 [facility] Height 162.56 cm 01/31/2012 [facility] Weight 81.818 01/31/2012 [facility] Diastolic (mm Hg) 73 01/29/2012 [facility] Systolic (mm Hg) 157 01/29/2012 [facility] Respitory Rate 18 01/29/2012 [facility] Heart Rate 69 01/29/2012 [facility] Temperature Oral (F) 98.4 F 01/29/2012 [facility] Systolic (mm Hg) 145 01/29/2012 [facility] Respitory Rate 18 01/29/2012 [facility] Diastolic (mm Hg) 72 01/29/2012 [facility] Heart Rate 55 01/29/2012 [facility] Temperature Oral (F) 98.0 F 01/29/2012 [facility] Systolic (mm Hg) 111 01/29/2012 [facility] Respitory Rate 18 01/29/2012 [facility] Heart Rate 56 01/29/2012 [facility] Temperature Oral (F) 98.1 F 01/29/2012 [facility] Diastolic (mm Hg) 68 01/29/2012 [facility] Height 152.40 cm 12/31/2011 [facility] Weight 100.227 12/31/2011 [facility] Weight 109.091 12/31/2011 [facility] Height 152.40 cm 12/31/2011 [facility] Encounters Location Location Details Encounter Type Encounter Number Reason For Visit Attending Provider ADM Date DC Date Status Source [facility] Inpatient [id number] TASO MOUGOURIS 12/31/2011 01/29/2012 Discharged [facility] Inpatient [id number] HEMATURIA WITH UR INARY RETENTION, ABDOMINAL PAIN TASO MOUGOURIS 01/31/2012 02/16/2012 Active [facility] Inpatient [id number] HYPERKALEMIA, WEA KNESS TASO MOUGOURIS 06/30/2012 07/11/2012 Active [facility] OU [id number] LEFT HIP PAIN MONIE MILAN 09/05/2012 09/10/2012 Active [facility] Inpatient [id number] MONIE MILAN 11/29/2012 12/03/2012 Discharged [facility] Emergency [id number] WILLY FRYE 12/05/2012 12/05/2012 Discharged [facility] Emergency [id number] CHOLO ALVAREZ 12/23/2012 12/23/2012 Discharged [facility] Inpatient [id number] FARAZ OBREGON 12/26/2012 12/28/2012 Discharged [facility] Emergency [id number] LEFT ARM PAIN IMANI MORENO 01/06/2013 01/06/2013 Active [facility] Emergency [id number] SOB CHOLO ALVAREZ 01/12/2013 01/12/2013 Active [facility] SIS [id number] BDDC/REFLUX, SCRE ENING KULVEDNA NARANJO 02/23/2013 02/23/2013 Active [facility] Inpatient [id number] MORBID OBESITY CELINEEDNA ISAMAR 06/22/2013 07/03/2013 Active [facility] Inpatient [id number] MONIE YATES 07/24/2013 07/30/2013 Discharged [facility] Emergency [id number] ABDOMINAL PAIN SHELISE WALTERS 08/03/2013 08/03/2013 Active [facility] Inpatient [id number] ENCHAVOET SERGVijay 08/07/2013 08/10/2013 Discharged [facility] SIS [id number] BDDC/GERD CHANTELLE PALMER 09/20/2013 09/20/2013 Active [facility] Inpatient [id number] ALE VYASJANE 11/10/2013 11/29/2013 Discharged [facility] Inpatient [id number] Radamespretty Diaz 08/01/2014 08/02/2014 [facility] EC Emergency Center [id number] Patrick Singh 09/03/2014 09/03/2014 [facility] Emergency [facility] [id number] 19 Evansjulianajacques Lainez 09/19/2014 09/19/2014 [facility] OP Transplant Clinic - Pre [id number] Edmund Buchanan 11/06/2014 12/06/2014 [facility] Outpatient [id number] Mariama Moreno 11/27/2014 11/28/2014 [facility] Emergency Center [id number] 23 Kim Bobby 01/11/2015 01/11/2015 [facility] Inpatient [id number] Minor Cardenas 04/15/2015 04/22/2015 [facility] Inpatient [id number] Daphney Esquivel 06/05/2016 06/10/2016 [facility] Outpatient [id number] Tiffanie Wednesday11/13/2017 11/14/2017 [facility] Outpatient [id number] Tiffanie Wednesday11/27/2017 11/28/2017 [facility] Procedures Procedure Code Date Perfomer Comments Source Hemodialysis 39.95 08/07/2013 [facility] Esophagogastroduodenoscopy [egd] with Closed Biopsy [id number] 07/28/2013 [facility] Esophagogastroduodenoscopy [egd] with Closed Biopsy 45.16 07/28/2013 [facility] Hemodialysis [id number] 07/24/2013 [facility] Laparoscopic sleeve gastrectomy [id number] 06/22/2013 [facility] Laparoscopic sleeve gastrectomy [id number] 06/22/2013 [facility] Cholecystectomy [id number] 10/25/1991 [facility] Cholecystectomy [id number] 10/25/1991 [facility] Exploration of abdomen<sup>1</sup> [id number] 10/25/1991 and Repair of [place] and stomach [facility] Exploration of abdomen <sup>1</sup> [id number] 10/25/1991 1and Repair of [place] and stomach [facility] Appendectomy [id number] [facility] Gastric bypass [id number] [facility] Hemodialysis [id number] [facility] Insertion of tunneled dialysis catheter using fluoroscopic guidance<sup>2</sup> [id number] Left AV fistula [facility] Appendectomy [id number] [facility] Insertion of tunneled dialysis catheter using fluoroscopic guidance<sup>1</sup> [id number] 1Left AV fistula [facility] Assessment and Plan Assessment and Plan Date Source Extracted from:Title: Clinical Document Author: Juaquin Soriano MD Date: 06/10/16 Progress Note - Daily [facility] Completed: May, 15:04 by Juaquin Soriano MD RM: 124 - 1P, SE C1B TAI GRANT 56y (: 1960) F Attending: Daphney Esquivel MD Service: Internal Medicine Reason for Admission: DIVERTICULITIS, MISSED HD Working DRG: Other digestive system diagnoses w/o CC/LONG-TERM Code status: None Specified=FULL CODE Current diet: [...] Cont pepcid 4. 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 Bran Ordered: Office Visit Level 5 New - 46787 Frailty I am concerned about her mobility and her frequent hospitalizations. Karnofsky score: 60% Ordered: Office Visit Level 5 New - [id number] Obesity Not prohibitive after surgical weight loss Ordered: Office Visit Level 5 New - 83114 Pre-transplant evaluation for kidney transplant At this [...] fact that we do not remove the [place] kidneys, some basic technical features of the operation, and some potential surgical complications. We discussed the hospitalization and expected [id number]. Finally, we discussed the need for life-long immunosuppression and follow up. The patient asked appropriate questions and expressed understanding. After completion of the workup the patient's case will be presented in our multi-disciplinary transplant selection conference, and as always the decision regarding the patient's candidacy will be made by the group. Ordered: Office Visit Level 5 New - [id number] 12/06/2014 [facility] Extracted from:Title: Clinical Document Author: Enoch Mena MD Date: 08/02/14 Progress Note Nephrology [facility] SUBJECTIVE Patient feeling better today, no nausea/vomiting [...] as outpatient. 4. No HD today 08/02/2014 [facility] Plan of Care No Data Provided for This Section Social History Social History Date Source Social History TypeResponse Substance Abuse Use: None. Sexual Sexually active: No. Alcohol Never Smoking Status Former smoker; Exposure to Tobacco Smoke None; Cigarette Smoking Last 365 Days No; Reg Smoking Cessation Counseling No entered on: 06/05/16 08/02/2014 [facility] Social History TypeResponse Substance Abuse Use: None Sexual Sexually active: No Alcohol Use: Never Smoking Status Former smoker, Exposure to Tobacco Smoke None, Cigarette Smoking Last 365 Days No, Reg Smoking Cessation Counseling No 08/02/2014 [facility] Family History No Data Provided for This Section Advance Directives No Data Provided for This Section Functional Status No Data Provided for This Section
--- OUTSIDE RECORDS SUMMARY | 2020-06-20 12:23 | XMS REPORT | Continuity of Care Document ---
Author Author [facility] t Organization [facility] Address [address] [place] [id number] Phone Unavailable Care Team Providers Care Proofsheet Corrector Name Role Phone JASPREET JEREZ PCP Roxann [...] Number Effective Date Expiration Date Roxann ESCALANTE [phone] 2017 00:00:00 [facility] Medicare A & B [id number] 2012 00:00:00 [facility] Problems Condition Name Condition Details Condition Category [...] [facility] Diagnosis Active 2017-11-18 00:00:00 2017-11-27 07:34:00 [facility] Hypotension Hypotension Disease Active 2016-12-21 00:00:00 Bienvenido Garnett CHEST PAIN/SOB CHES T PAIN/SOB Active 06/05/2016 [facility] Active 2016-06-05 00:00:00 2016-06-05 12:21:00 [facility] DIVERTICULITIS, MISSED HD DIVE RTICULITIS, MISSED HD Active 06/05/2016 [facility] Active 2016-06-05 00:00:00 2016-06-09 16:28:00 [facility] Chest pain Chest pain Problem Active 2016-04-14 00:00:00 [facility] End-stage renal disease ESRD (end stage renal disease) Problem Active 2015-08-07 00:00:00 [facility] Jejunitis Jejunitis Problem Active 2015-08-07 00:00:00 [facility] GROIN PAIN GROI N PAIN Active 04/15/2015 [facility] Active 2015-04-15 00:00:00 2015-04-25 22:02:00 [facility] LEG PAIN LEG PAIN Active 04/15/2015 [facility] Active 2015-04-15 00:00:00 2015-04-15 18:26:00 [facility] ABDOMINAL PAIN ABDO ROBIN PAIN Active 01/11/2015 [facility] Active 2015-01-11 00:00:00 2015-01-11 07:49:00 [facility] CARDIAC CLEARANCE CARD IAC CLEARANCE Active 12/03/2014 [facility] Diagnosis Active 2014-12-03 00:00:00 2014-12 14:14:00 [facility] FAUSTO FAUSTO Active 11/07/2014 [facility] Diagnosis Active 2014-11-07 00:00:00 2014-11-27 15:04:00 [facility] RENAL DO NOT USE FOR CHARGES F/C NOTES O RENAL DO NOT USE FOR CHARGES F/C NOTES O Active 11/06/2014 [facility] Diagnosis Active 2014-11-06 06:00:00 2014-11-06 10:04:00 [facility] SYNCOPE SYNC OPE Active 10/05/2014 [facility] Active 2014-10-05 00:00:00 2014-10-05 09:46:00 [facility] SYNCOPE, ABDOMINAL PAIN SYNC OPE, ABDOMINAL PAIN Active 10/05/2014 [facility] Active 2014-10-05 00:00:00 2014-10-05 18:12:00 [facility] SEVERE DYSPESIA, SYNCOPALL EPISODE SEVERE DYSPESIA, SYNCOPALL EPISODE Active 10/05/2014 [facility] Diagnosis Ac tive 2014-10-05 00:00:00 2014-11-20 10:47:00 [facility] PRE RENAL EVAL PRE RENAL EVAL Active 10/03/2014 [facility] Diagnosis Active 2014-10-03 00:00:00 2014-11-15 0 8:42:00 [facility] WEAKNESS WEAK NESS Active 09/19/2014 [facility] Active 2014-09-19 00:00:00 2014-09-19 07:32:00 [facility] VOMITING VOMI TING Active 07/31/2014 [facility] Active 2014-07-31 00:00:00 2014-08-01 07:46:00 [facility] SYNCOPE, ANEMIA SYNC OPE, ANEMIA Active 07/31/2014 [facility] Active 2014-07-31 00:00:00 2014-08-02 10:44:00 [facility] HYPOGLYCEMIA HYPO GLYCEMIA Active 11/09/2013 [facility] Active 2013-11-09 00:00:00 2013-11-27 12:56:00 [facility] BDDC/GERD BDDC /GERD Active 09/18/2013 [facility] Diagnosis Active 2013-09-18 00:00:00 2013-12-14 16:54:00 [facility] COLITIS COLI TIS Active 08/05/2013 [facility] Active 2013-08-05 00:00:00 2013-08-08 07:54:00 [facility] VOMITING, HYPOKALEMIA, ESRD VO MITING, HYPOKALEMIA, ESRD Active 07/24/2013 [facility] Active 2013-07-24 00:00:00 2013-07-28 16:22:00 [facility] SHORTNESS OF BREATH SHOR TNESS OF BREATH Active 07/24/2013 [facility] Active 2013-07-24 00:00:00 2013-07-24 07:09:00 [facility] BDDC/REFLUX, SCREENING BDDC /REFLUX, SCREENING Active 02/02/2013 [facility] Diagnosis Active 2013-02-02 00:00:00 2013-06-22 11:56:00 [facility] SOB SOB Active 01/12/2013 [facility] Active 2013-01-12 00:00:00 2013-11-06 15:11:00 [facility] LEFT ARM PAIN LEFT ARM PAIN Active 01/04/2013 [facility] Active 2013-01-04 12:00:00 2013-01-12 11:20:00 [facility] HYPERKALEMIA HYPE RKALEMIA Active 12/25/2012 [facility] Active 2012-12-25 00:00:00 2012-12-28 08:45:00 [facility] ARM PAIN ARM PAIN Active 12/23/2012 [facility] Active 2012-12-23 00:00:00 2012-12-23 15:33:00 [facility] LUE PAIN AFTER DIALYSIS, HISTORY OF FIST LUE PAIN AFTER DIALYSIS, HISTORY OF FIST Active 12/23/2012 [facility] Ac tive 2012-12-23 00:00:00 2012-12-25 23:30:00 [facility] DYSPNEA DYSP KYLAH Active 11/29/2012 [facility] Diagnosis Active 2012-11-29 00:00:00 2012-11-30 22:06:00 [facility] MORBID OBESITY MORB ID OBESITY Active 10/11/2012 [facility] Diagnosis Active 2012-10-11 00:00:00 2013-07-07 2 1:50:00 [facility] LEFT HIP PAIN LEFT HIP PAIN Active 09/03/2012 [facility] Diagnosis Active 2012-09-03 00:00:00 2012-11-30 09:51:00 [facility] 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 [facility] Problem Active 2012-07-01 00:00:00 2018-03-05 11:23:26 [facility] VRE VRE Active 07/01/2012 Problem 08/04/2013 12/05/12 VRE of the [id number] added by Discern Expert. [facility] Problem Active 2012-07-01 00:00:00 2013-08-04 23:16:27 [facility] HYPERKALEMIA, WEAKNESS HYPE RKALEMIA, WEAKNESS Active 06/30/2012 [facility] Active 2012-06-30 12:00:00 2012-08-08 08:10:00 [facility] ABDOMINAL PAIN/ VAG BLEED ABDO ROBIN PAIN/ VAG BLEED Active 01/31/2012 [facility] Diagnosis Active 2012-01-31 00:00:00 2012-01-31 19:31:00 [facility] HEMATURIA WITH URINARY RETENTION, ABDOMINAL PAIN HEMATURIA WITH URINARY RETENTION, ABDOMINAL PAIN Active 01/31/2012 [facility] Diagnosis Active 2012-01-31 00:00:00 2012-06-02 15:22:00 [facility] HYPERRKALEMIA, INTRACTABLE PAIN,ARF,NEUROPATHY HYPERRKALEMIA, INTRACTABLE PAIN,ARF,NEUROPATHY Active 12/30/2011 [facility] Diagnosis Active 2011-12-30 00:00:00 2012-01-25 07:44:00 [facility] Muscle cramps Cramps, muscle, general Problem Active [facility] Abdominal cramps Intestinal cramps Problem Active [facility] Cellulitis of right ankle Cellulitis of right ankle Problem Active [facility] Cellulitis of right foot Cellulitis of right foot Problem Active [facility] Open wound of right ankle Open wound of right ankle Problem Active [facility] Fibromyositis (disorder) Fibr omyositis (disorder) Resolved Problem 03/05/2018 [facility] Problem Resolved 2018-03-05 11: 23:26 [facility] [address] Neuropathy Neur opathy Resolved Problem 08/04/2013 [facility] Problem Resolved 2013-08-04 23:16:27 [facility] Back pain Back pain Resolved Problem 09/22/2013 [facility] Problem Resolved 2013-09-22 22:09:03 Brennon Camarena ESRD (end stage renal disease) ESRD (end stage renal disease) Resolved Problem 09/22/2013 [facility] Problem Resolved 2013-09-22 22:09:03 Shahzad Camarena HTN HTN Resolved Problem 09/22/2013 [facility] Problem Resolved 2013-09-22 22:09:03 [facility] Hyperkalemia Hype rkalemia Resolved Problem 09/22/2013 [facility] Problem Resolved 2013-09-22 22:09:03 Brennon Camarena UTI [Urinary tract infection] UTI [Urinary tract infection] Resolved Problem 09/22/2013 [facility] Problem Resolved 2013-09-22 22:09:03 Brennon Camarena Acute painful diabetic neuropathy (disorder) Acute painful diabetic neuropathy (disorder) Active Problem 03/05/2018 [facility] Problem Active 2018-03-05 11:23:26 Brennon Camarena Injury of back (disorder) Inju ry of back (disorder) Active Problem 03/05/2018 [facility] Problem Active 2018-03-05 11:23:26 Brennon Camarena Backache (finding) Back ache (finding) Active Problem 03/05/2018 [facility] Problem Active 2018-03-05 11:23:26 Brennon Camarena Coronary arteriosclerosis (disorder) Coronary arteriosclerosis (disorder) Active Problem 03/05/2018 [facility] Problem Active 2018-03-05 11:23:26 Angelito Camarena Diabetes mellitus (disorder) D iabetes mellitus (disorder) Active Problem 03/05/2018 [facility] Problem Active 2018-03-05 11:23:26 Shahzad Camarena Diabetes mellitus type 2 (disorder) Diabetes mellitus type 2 (disorder) Active Problem 03/05/2018 [facility] Problem Active 2018-03-05 11:23:26 Brennon Camarena Asthenia (finding) Asth enia (finding) Active Problem 03/05/2018 [facility] Problem Active 2018-03-05 11:23:26 Brennon Camarena Hemodialysis (procedure) Hemo dialysis (procedure) Active Problem 03/05/2018 [facility] Problem Active 2018-03-05 11:23:26 Brennon Camarena Heart disease (disorder) Hear t disease (disorder) Active Problem 03/05/2018 [facility] Problem Active 2018-03-05 11:23:26 Brennon Camarena Hypertensive disorder, systemic arterial (disorder) Hypertensive disorder, systemic arterial (disorder) Active Problem 03/05/2018 [facility] Problem Active 2018-03-05 11:23:26 Brennon Camarena Malignant hypertension (disorder) Malignant hypertension (disorder) Active Problem 03/05/2018 [facility] Problem Active 2018-03-05 11:23:26 Shahzad Camarena Hyperkalemia (disorder) Hype rkalemia (disorder) Active Problem 03/05/2018 [facility] Problem Active 2018-03-05 11:23:26 Brennon Camarena Neuropathy (disorder) Neur opathy (disorder) Active Problem 03/05/2018 [facility] Problem Active 2018-03-05 11:23:26 Brennon Camarena 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) 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) Active Problem 03/05/2018 [facility] Problem Active 2018-03-05 11:23:26 Brennon Camarena Osteoarthritis (disorder) Oste oarthritis (disorder) Active Problem 03/05/2018 [facility] Problem Active 2018-03-05 11:23:26 Brennon Camarena Obesity (disorder) Obes ity (disorder) Active Problem 03/05/2018 [facility] Problem Active 2018-03-05 11:23:26 [facility] [place] Pretransplant evaluation of kidney recipient (procedur e) Pretransplant evaluation of kidney recipient (procedure) Active Problem 03/05/2018 [facility] Problem Active 2018-03-05 11:23:26 Brennon Camarena Kidney disease (disorder) Kidn ey disease (disorder) Active Problem 03/05/2018 [facility] Problem Active 2018-03-05 11:23:26 [facility] Sleep apnea(Confirmed) Slee p apnea(Confirmed) Active Problem 03/05/2018 [facility] Problem Active 2018-03-05 11:23:2 6 [facility] Sleep apnea (finding) Slee p apnea (finding) Active Problem 03/05/2018 [facility] Problem Active 2018-03-05 11:23:26 Brennon Camarena Urinary tract infectious disease (disorder) Urinary tract infectious disease (disorder) Active Problem 03/05/2018 [facility] Problem Active 2018-03-05 11:23:26 Brennon Camarena Acute painful diabetic neuropathy Acute painful diabetic neuropathy Active Problem 08/04/2013 [facility] Problem Active 2013-08-04 23:16:27 Shahzad Camarena Back injury Back injury Active Problem 08/04/2013 [facility] Problem Active 2013-08-04 23:16:27 [facility] Back pain Back pain Active Problem 08/04/2013 [facility] Problem Active 2013-08-04 23:16:27 [facility] Cholesterol Chol esterol Active Problem 08/04/2013 [facility] Problem Active 2013-08-04 23:16:27 [facility] Diabetes mellitus Diab etes mellitus Active Problem 08/04/2013 [facility] Problem Active 2013-08-04 23:16:27 [facility] ESRD - End stage renal disease ESRD - End stage renal disease Active Problem 08/04/2013 [facility] Problem Active 2013-08-04 23:16:27 Shahzad Camarena General weakness Gene ral weakness Active Problem 08/04/2013 [facility] Problem Active 2013-08-04 23:16:27 Brennon Camarena HD - Hemodialysis HD - Hemodialysis Active Problem 08/04/2013 [facility] Problem Active 2013-08-04 23:16:27 [facility] Heart disease Hear t disease Active Problem 08/04/2013 [facility] Problem Active 2013-08-04 23:16:27 [facility] HT - Hypertension HT - Hypertension Active Problem 08/04/2013 [facility] Problem Active 2013-08-04 23:16:27 [facility] Hyperkalemia Hype rkalemia Active Problem 08/04/2013 [facility] Problem Active 2013-08-04 23:16:27 [facility] Neuropathy Neur opathy Active Problem 08/04/2013 [facility] Problem Active 2013-08-04 23:16:27 [facility] OA - Osteoarthritis OA - Osteoarthritis Active Problem 08/04/2013 [facility] Problem Active 2013-08-04 23:16:27 [facility] Renal disease Brooke l disease Active Problem 08/04/2013 [facility] Problem Active 2013-08-04 23:16:27 [facility] Sleep apnea Slee p apnea Active Problem 08/04/2013 [facility] Problem Active 2013-08-04 23:16:27 [facility] UTI - Urinary tract infection UTI - Urinary tract infection Active Problem 08/04/2013 [facility] Problem Active 2013-08-04 23:16:27 Shahzad Camarena OA - Osteoarthritis OA - Osteoarthritis Active Problem 02/18/2012 [facility] Problem Active 2012-02-18 08:39:22 [facility] Kidney dialysis Kidn ey dialysis Active Problem 08/04/2013 [facility] Problem Active 2013-08-04 23:16:27 [facility] Cholesterol (substance) Chol esterol (substance) Active Problem 06/13/2016 [facility] Problem Active 2016-06-13 01:30:34 [facility] Renal dialysis (procedure) Oscar al dialysis (procedure) Active Problem 09/22/2014 [facility] Problem Active 2014-09-22 05:42:10 [facility] Obesity Obes ity Active Problem 08/04/2013 [facility] Problem Active 2013-08-04 23:16:27 [facility] DM (diabetes mellitus)(Confirmed) DM (diabetes mellitus)(Confirmed) Active Problem 09/22/2014 [facility] Problem Active 2014-09-22 05:42:10 [facility] hemo dialysis M W FR(Confirmed) hemo dialysis M W FR(Confirmed) Active Problem 09/22/2014 [facility] Problem Active 2014-09-22 05:42:10 [facility] Essential hypertension (disorder) Essential hypertension (disorder) Active Problem 09/22/2014 [facility] Problem Active 2014-09-22 05:42:10 [facility] OA (osteoarthritis)(Confirmed) OA (osteoarthritis)(Confirmed) Active Problem 04/25/2015 [facility] Problem Active 2015-04-25 00:56:48 Angelito Camarena Sleep apnea(Confirmed) Slee p apnea(Confirmed) Active Problem 04/25/2015 [facility] Problem Active 2015-04-25 00:56:48 [facility] hemo dialysis M W FR hemo dialysis M W FR Active Problem 12/01/2013 [facility] Problem Active 2013-12-01 21:21:3 8 [facility] HEMATURIA BRAXTON TURIA Active [facility] Diagnosis Active 2012-06-02 15:22:00 [facility] [place] RETENTION OF URINE NOS RETE NTION OF URINE NOS Active [facility] Diagnosis Active 2012-06-02 15:22:00 [facility] MALAISE AND FATIGUE NEC DOC ISE AND FATIGUE NEC Active [facility] Diagnosis Active 2012-08-08 08:10:00 [facility] JOINT PAIN-PELVIS JOIN T PAIN-PELVIS Active [facility] Diagnosis Active 2012-11-30 09:51:00 [facility] HYPOPOTASSEMIA HYPO POTASSEMIA Active [facility] Diagnosis Active 2012-12-28 08:45:00 [facility] SCREEN MALIG NEOP-COLON SCRE EN MALIG NEOP-COLON Active [facility] Diagnosis Active 2013-06-22 11:56:00 [facility] ESOPHAGEAL REFLUX ESOP HAGEAL REFLUX Active [facility] Diagnosis Active 2013-06-22 11:56:00 [facility] MORBID OBESITY MORB ID OBESITY Active [facility] Diagnosis Active 2013-07-07 21:50:00 [facility] [place] VOMITING ALONE VOMI TING ALONE Active [facility] Diagnosis Active 2013-07-28 16:22:00 [facility] LOCALIZED ADIPOSITY LOCA LIZED ADIPOSITY Active [facility] Diagnosis Active 2013-05-31 16:22:00 [facility] NONINF GASTROENTERIT NEC [place] NF GASTROENTERIT NEC Active [facility] Active 2013-08-08 07:54:00 [facility] HYPOGLYCEMIA NOS HYPO GLYCEMIA NOS Active [facility] Active 2013-11-27 12:56:00 [facility] SYNCOPE AND COLLAPSE SYNC OPE AND COLLAPSE Active [facility] Active 2014-11-20 10:47:00 [facility] [place] ROUTINE MEDICAL EXAM ROUT INE MEDICAL EXAM Active [facility] Diagnosis Active 2014-11-27 15:04:00 [facility] ABDMNAL PAIN OTH SPCF ST ABDM NAL PAIN OTH SPCF ST Active [facility] Active 2015-04-25 22:02:00 [facility] DIVERTICULUM OF APPENDIX DIVE RTICULUM OF APPENDIX Active [facility] Active 2016-06-09 16:28:00 [facility] OTHER SYMPTOMS AND SIGNS INVOLVING THE N OTHER SYMPTOMS AND SIGNS INVOLVING THE N Active [facility] Active 2017-11-27 07:34:00 [facility] Other symptoms and signs involving the nervous system Other symptoms and signs involving the nervous system 12/02/2017 03/05/2018 [facility] Problem 2017-12-02 04:41:42 2018-03-05 11:23:26 2018-02 11:23:26 [facility] Discharge Diagnosis: Abdominal pain Discharge Diagnosis: Abdominal pain 01/11/2015 01/13/2015 [facility] Problem 2015-01-11 05:00:00 2015-01-13 23:59:55 2015-01-13 23:59:55 [facility] Discharge Diagnosis: Abdominal pain, acute, bilateral lower quadrant Discharge Diagnosis: Abdominal pain, acute, bilateral lower quadrant 09/03/2014 09/06/2014 [facility] Problem 2014-09-03 06: 00:00 2014-09-06 01:53:18 2014-09-06 01:53:18 [facility] Discharge Diagnosis: Abdominal cramping Discharge Diagnosis: Abdominal cramping 09/03/2014 09/06/2014 [facility] Problem 2014-09-03 06:00:00 2014-09-06 01:53:18 2014-09-06 01:53:18 [facility] Allergies, Adverse Reactions, Alerts Allergy Name Allergy Type Status Severity Reaction(s) Onset Date Inacti ve Date Treating Clinician Comments Source morphine DA Active 2019-10-30 00:00:00 [facility] hydromorphone DA Active 2019-10-30 00:00:00 [facility] nifedipine DA Active SV 2019-01-16 00:00:00 [facility] Hydromorphone Propensity to adverse reactions to drug Active Other (See Comments) 2019-01-11 00:00:00 Seizure-like activity per Dr Hector Garnett Morphine Propensity to adverse reactions to drug Active Other (See Comments) 2019-01-11 00:00:00 Seizure activity [facility] nifedipine DA Active SV 2018-05-04 00:00:00 [facility] Nifedipine Propensity to adverse reactions to drug [...] Heart attack Bienvenido Garnett Natural sister Diabetes [place] [facility] Natural sister Heart attack Bienvenido [...] mg tablet 2019-01-14 16:27:40 Ye s 2400mg Q.[id number] Take 2,400 mg by mouth 3 (three) times a day with meals. Bienvenido Garnett insulin ASPART (NovoLOG) 100 unit/mL injection 2019-01-14 16:27: 40 Yes 30U Q.[id number] Inject 30 Units under the sk in [...] MG tablet 2019-01-14 16:27:40 Y es 10mg Q.[id number] Take 10 mg by mouth 3 (three) times a we ek. Take on Wednesday, Wednesday and Wednesday for Low BP during dialysis Bienvenido Garnett rosuvastatin (CRESTOR) 40 MG tablet 2018-12-27 00:00:00 Yes 1{tbl} Take 1 tablet by mouth daily. [facility] nitzast esomeprazole (NexIUM) 20 MG capsule 2018-11-23 00:00:00 Yes 20mg QD Take 20 mg by mouth every morning. [place] [facility] ezetimibe (ZETIA) 10 mg tablet 2018-11-14 00:00:00 Yes 10mg QD Take 10 mg by mouth every morning. [facility] nortriptyline (PAMELOR) 10 MG capsule 2018-10-25 00:00:00 Y es 20mg QD Take 20 mg by mouth nightly. Bienvenido Barfield pacurly DULoxetine (CYMBALTA) 30 MG capsule 2018-10-19 00:00:00 Yes 30mg Q.5D Take 30 mg by mouth 2 (two) times a day. Bienvenido Garnett LYRICA 150 mg capsule 2018-02-21 00:00:00 Yes 150mg Q.[id number] Take 150 mg by mouth 3 (three) times a day. Bienvenido Garnett SUMAtriptan (IMITREX) 100 MG tablet 2018-02-09 00:00:00 Yes 100mg QD Take 100 mg by mouth nightly. Bienvenido Jamil ethodist divalproex (DEPAKOTE) 500 MG 24 hr tablet 2016-11-21 00:00:00 Yes 1000mg QD Take 1,000 mg by mouth nightly. Faria Jew Cefuroxime 250 MG Oral Tablet [Ceftin] 2016-06-10 [...] as: Flagyl) Take with food/ avoid alcohol [facility] Florastor 2016-06-10 14:00:00 No Notes: Sunil washing[place] Lorijoesph [facility] Famotidine 40 MG Oral Tablet [Pepcid] 2016-06-10 02:00:00 N o Notes: (Same as: Pepcid) Brennon Camarena Dilaudid 2016-06-09 16:44:00 No 0.5 mg, 0.5 mL, Route: IVP, Drug form: INJ, Q4H, Dosing Weight 94.801, kg, PRN Pain Score 7-10, Start date: 06/09/16 11:44:00 CDT, Duration: 30 day, Stop date: 07/09/16 11:43:00 CDT [facility] Insulin, Aspart, Human 2016-06-07 00:06:00 No Notes: Roll in palms of hands gently; Do not shake vigorously. (Same as: NovoLOG) "single patient use only" WASTE: F/P - Black; E [employer] Trash Bin Stable for 28 days at room temperature. Expires in days from Date [facility] Dextrose 50% Syringe 2016-06-07 00:06:00 No 25 gm, 50 mL, Route: IVP, Drug Form: INJ, Dosing Weight 94.801, kg, PRN, PRN Blood Glucose Results, Start date: 06/06/16 19:06:00 CDT, Duration: 30 day, Stop date: 07/06/16 19:05:00 CDT [facility] Glucagon 2016-06-07 00:06:00 No 1 mg, Route: IM, Drug form: PDR/INJ, PRN, Dosing Weight 94.801, kg, PRN Blood Glucose Results, Start date: 06/06/16 19:06:00 CDT, Duration: 30 day, Stop date: 07/06/16 19:05:00 CDT [facility] pneumococcal 13-valent vaccine 2016-06-06 22:30:00 No Notes: Lightly roll vial (DO NOT SHAKE) before administration. (Same as: Prevnar 13) [facility] Protonix 2016-06-06 21:30:00 No Notes: Tablet should [...] Notes: (Same as: Cymbalta) (Do Not Crush) [facility] clopidogrel 2016-06-06 14:00:00 No Notes: ( Same As: Plavix) Brennon Camarena carvedilol 2016-06-06 14:00:00 No Notes: Give with food. (Same As: Coreg) [facility] Renvela 2016-06-06 13:00:00 No Notes: Same as: Renvela [facility] Simvastatin 2016-06-06 02:00:00 No Notes: ( Same as: Zocor) [facility] insulin detemir 2016-06-06 02:00:00 No Notes: Same as Levemir Do not hold insulin without contacting prescriber WASTE: F/P - Black; E - [facility] "single patient use only" [facility] mehreen Camarena 24 HR Divalproex Sodium 500 MG Extended Release Tablet [Depa kote] 2016-06-06 02:00:00 No Notes: (Sa me as: Depakote ER) (Do Not Crush) "Do Not Crush" Brennon Camarena sevelamer 2016-06-06 01:05:00 No 1,600 mg, Route: PO, Drug form: TAB, PRN, Dosing Weight 95.455, kg, PRN Dialysis, Start date: 06/05/16 20:05:00 CDT, Duration: 30 day, Stop date: 07/05/16 20:04:00 CDT [facility] Sumatriptan 2016-06-06 00:05:00 No Notes: ( Same As: Imitrex) [facility] tramadol hydrochloride 50 MG Oral Tablet 2016-06-06 00:03:00 No Notes: Not to exceed 400mg/day. (Same As: Ultram) [facility] sevelamer 2016-06-06 00:03:00 No 1,600 mg, Route: PO, Drug form: TAB, PRN, Dosing Weight 95.455, kg, PRN Dialysis, Start date: 06/05/16 19:03:00 CDT, Duration: 30 day, Stop date: 07/05/16 19:02:00 CDT [facility] Promethazine 2016-06-06 00:03:00 No Notes: (Same as: Phenergan) [facility] cyclobenzaprine 2016-06-06 00:02:00 No Notes: (Same As: Flexeril) [facility] Rocephin 2016-06-05 21:00:00 No Notes: (Same As: Rocephin). Use with 100 mL NS and infuse over 30 min MEDICATION WASTE Product Size: 1000 mg Product Wasted: ___ mg [facility] Esomeprazole 40 MG Enteric Coated Capsule [Nexium] 2016-05 20:49:00 Yes 40 mg = 1 cap, PO, Daily, # 30 cap, 0 Re fill(s) [facility] Promethazine 2016-06-05 20:49:00 Yes 0.5, PO , PRN, 0 Refill(s) [facility] Sodium Bicarbonate 325 MG Oral Tablet 2016-06-05 20:49:00 Y es PO, TID, 0 Refill(s) [facility] gabapentin 300 MG Oral Capsule 2016-06-05 20:49:00 Yes 300 mg = 1 cap, PO, BID, # 90 cap, 1 Refill(s) Angelito rial [place] lisinopril 10 mg oral tablet 2016-06-05 20:49:00 Yes 10 mg = 1 tab, PO, Daily, # 30 tab, 0 Refill(s) Bren l [place] cyclobenzaprine 2016-06-05 20:49:00 Yes 5 mg, PO, TID, PRN Muscle spasm, # 30 tab, 0 Refill(s) [facility] arabella Acetaminophen 325 MG / Hydrocodone Bitartrate 5 MG Oral Tabl et [Copake 5/325] 2016-06-05 20:42:00 No Notes: (Same as: Copake 325/5) Do not exceed 4gm/day of acetaminophen. Brennon Schreiber nn Streptococcus pneumoniae serotype 1 caps ular antigen diphtheria [id number] protein conjugate vaccine / Streptococcus pneumoniae serotype 14 capsular antigen diphtheria [id number] protein conjugate vaccine / Streptococcus pneumoniae serotype 18C capsular antigen d 2016-06-05 20:00:00 No Notes: Lightly roll vial (DO NOT SHAKE) before administration. (Same as: Prevnar 13) [facility] Ondansetron 2016-06-05 17:31:00 No Notes: (Same as: Natalya) MEDICATION WASTE Product Size: 4 mg Product Wasted: ___ mg [facility] Acetaminophen 2016-06-05 17:31:00 No Notes: Do not exceed 4 gm/day. (Same as: Tylenol) [facility] Flagyl 2016-06-05 17:08:00 No Notes: (Same as: Edwar) Avoid alcohol. [facility] Cipro 2016-06-05 17:08:00 No Notes: Do not refrigerate [facility] Zofran 2016-06-05 16:22:00 No 4 mg, Route: IVP, Drug form: INJ, ONCE, Dosing Weight 95.455, kg, Priority: STAT, Start date: 06/05/16 11:22:00 CDT, Stop date: 06/05/16 11:22:00 CDT [facility] Dilaudid 2016-06-05 11:44:00 No 0.5 mg, Route: IVP, ONCE, Dosing Weight 95.455, kg, Priority: STAT, Start date: 06/05/16 6:44:00 CDT, Stop date: 06/05/16 6:44:00 CDT [facility] Ondansetron 2016-06-05 11:44:00 No 4 mg, Route: IVP, ONCE, Dosing Weight 95.455, kg, Priority: STAT, Start date: 06/05/16 6:44:00 CDT, Stop date: 06/05/16 6:44:00 CDT [facility] Saline Flush 0.9% 2016-06-05 11:44:00 No Notes: (Same as: BD Posiflush) [facility] Pantoprazole Sodium (Protonix) 40 Mg Tablet., 40 Mg Oral Pantoprazole Sodium (Protonix) 40 Mg Tablet.dr, 40 Mg Oral 2015-08-15 00:00:00 2017-06-21 00:00:00 No Shun Morris Md 40 Twice A Day [facility] Sucralfate (Carafate) 1 Gm Tablet, 1 Gm Oral Sucralfat e (Carafate) 1 Gm Tablet, 1 Gm Oral 2015-08-15 00:00:00 2017-06-21 00:00:00 No Shun Morris Md 1 Before Meals And At Bedtime [facility] duloxetine 2015-04-19 02:00:00 No Notes: (Same as: Cymbalta) (Do Not Crush) [facility] Simvastatin 2015-04-17 02:00:00 No Notes: ( Same as: Zocor) [facility] insulin detemir 2015-04-17 02:00:00 No Notes: Same as Levemir Do not hold insulin without contacting prescriber "single patient use only" [facility] 24 HR Divalproex Sodium 500 MG Extended Release Tablet [Depa kote] 2015-04-17 02:00:00 No Notes: (Sa me as: Depakote ER) Once daily dosing; indicated for migraines. Divalproex sodium extended-release tab. Do not chew or crush. "Do Not Crush" [facility] Ativan 2015-04-16 20:27:00 No Notes: (Same as: Ativan) [facility] ropinirole 2015-04-16 14:00:00 No Notes: (S jim as: Requip) [facility] Lyrica 2015-04-16 14:00:00 No Notes: (Same as: Lyrica) [facility] Nephro-Melodie 2015-04-16 14:00:00 No Notes: (Same as: Nephro-Melodie Rx and Diatx) Give with food. [facility] [place] Midodrine 2015-04-16 14:00:00 No Notes: (Sa me as:Proamatine) [facility] NovoLOG 70/30 2015-04-16 14:00:00 No Notes: Roll in palms of hands gently; Do not shake vigorously. (Same as: NovoLOG Mix) "single patient use only" Stable for 14 days at room temperature Expires in days from Date [facility] Levemir FlexPen 2015-04-16 14:00:00 No Notes: Same as Levemir Do not hold insulin without contacting prescriber "single patient use only" [facility] clopidogrel 2015-04-16 14:00:00 No Notes: ( Same As: Plavix) [facility] duloxetine 2015-04-16 14:00:00 No Notes: (Same as: Cymbalta) (Do Not Crush) [facility] carvedilol 2015-04-16 14:00:00 No Notes: Give with food. (Same As: Coreg) [facility] Renvela 2015-04-16 13:00:00 No Notes: Same as: Renvela [facility] heparin 2015-04-16 13:00:00 No Notes: porci ne heparin [facility] Insulin, Aspart, Human 2015-04-16 12:04:00 No Notes: Roll in palms of hands gently; Do not shake vigorously. (Same as: NovoLOG) "single patient use only" Stable for 28 days at room temperature. Expires in days from Date [facility] Dextrose 50% Syringe 2015-04-16 12:04:00 No 12.5 gm, 25 mL, Route: IVP, Drug Form: INJ, Dosing Weight 80.909, kg, PRN, PRN Blood Glucose Results, Start date: 04/16/15 7:04:00, Duration: 30 day, Stop date: 05/16/15 7:03:00 [facility] Glucagon 2015-04-16 12:04:00 No 1 mg, Route: IM, Drug form: PDR/INJ, PRN, Dosing Weight 80.909, kg, PRN Blood Glucose Results, Start date: 04/16/15 7:04:00, Duration: 30 day, Stop date: 05/16/15 7:03:00 [facility] tramadol hydrochloride 50 MG Oral Tablet 2015-04-16 11:52:00 No Notes: Not to exceed 400mg/day. (Same As: Ultram) Brennon Camarena Dilaudid 2015-04-16 03:01:00 No 0.5 mg, 0.5 mL, Route: IV, Drug form: INJ, Q4H, Dosing Weight 80.909, kg, PRN Pain Score 7-10, Start date: 04/15/15 22:01:00, Duration: 30 day, Stop date: 05/15/15 22:00:00 Brennon Camarena Zofran 2015-04-16 03:01:00 No Notes: (Same as: Leticiaan) MEDICATION WASTE Product Size: 4 mg Product Wasted: ___ mg Brennon Camarena Morphine 2015-04-16 01:38:00 No Not es: (Same as:MORPhine Sulfate) Brennon Camarena Acetaminophen 325 MG / Hydrocodone Bitartrate 5 MG Oral Tabl et 2015-04-16 01:38:00 No Notes: (Sa me as: Copake 325/5) Do not exceed 4gm/day of acetaminophen. [...] date: 04/15/15 16:55:00, Stop date: 04/15/15 16:55:00 [facility] [place] Dilaudid 2015-04-15 21:55:00 No 0.5 mg, Route: IVP, ONCE, Dosing Weight 84.8, kg, Priority: STAT, Start date: 04/15/15 16:55:00, Stop date: 04/15/15 16:55:00 [facility] Dilaudid 2015-04-15 18:35:00 No 0.5 mg, Route: IVP, ONCE, Dosing Weight 84.8, kg, Priority: STAT, Start date: 04/15/15 13:35:00, Stop date: 04/15/15 13:35:00 [facility] Ondansetron 2015-04-15 18:08:00 No Notes: (Same as: Natalya) MEDICATION WASTE Product Size: 4 mg Product Wasted: ___ mg [facility] Morphine 2015-04-15 18:08:00 No Not es: (Same as:MORPhine Sulfate) [facility] Saline Flush 0.9% 2015-04-15 18:08:00 No Notes: (Same as: BD Posiflush) [facility] Morphine 2015-01-11 16:35:00 No 4 mg, Route: IVP, Drug form: INJ, ONCE, Dosing Weight 77.273, kg, Priority: STAT, Start date: 01/11/15 11:35:00, Stop date: 01/11/15 11:35:00 [facility] 2015-01-11 14:27:00 No 4 mg, Route: IVP, Drug form: INJ, ONCE, Dosing Weight 77.273, kg, Priority: STAT, Start date: 01/11/15 9:27:00, Stop date: 01/11/15 9:27:00 [facility] [place] Zofran 2015-01-11 12:13:00 No Notes: (Same as: Zofran) [facility] pregabalin 75 MG Oral Capsule [Lyrica] 2014-11-27 22:47:00 Yes 75 mg = 1 cap, PO, BID, # 90 cap, 0 Refill(s) [facility] Lidocaine Hydrochloride 0.05 MG/MG Transdermal Patch [Lidode [...] Yes Special Instructions: D3 2000u po qd [facility] sevelamer carbonate 800 MG Oral [...] tablet 2014-11-02 21:42:00 Yes Special Instructions: prn [facility] Nephro-Melodie 2014-11-02 21:41:00 Yes Special Instructions: qd Brennon Camarena diazepam 5 mg oral tablet 2014-09-19 16:40:00 Yes 5 mg = 1 tab, PO, QID, Muscle Spasms, # 5 tab, 0 Refill(s) [facility] Diazepam 2014-09-19 16:39:00 No 5 mg, Route: IVP, Drug form: INJ, ONCE, Dosing Weight 84.007, kg, Priority: STAT, Start date: 09/19/14 10:39:00, Stop date: 09/19/14 10:39:00 [facility] Hydromorphone 2014-09-19 15:59:00 No 0.5 mg, Route: IVP, ONCE, Dosing Weight 84.007, kg, Priority: STAT, Start date: 09/19/14 9:59:00, Stop date: 09/19/14 9:59:00 [facility] Ondansetron 2014-09-19 15:47:00 No 4 mg, Route: IVP, Drug form: INJ, ONCE, Dosing Weight 84.007, kg, Priority: STAT, Start date: 09/19/14 9:47:00, Stop date: 09/19/14 9:47:00 [facility] Hydromorphone 2014-09-19 13:23:00 No 0.5 mg, Route: IVP, ONCE, Dosing Weight 84.007, kg, Priority: STAT, Start date: 09/19/14 7:23:00, Stop date: 09/19/14 7:23:00 [facility] Sodium Chloride 0.154 MEQ/ML Injectable Solution 2014-09-19 13:2 2:00 No 500 mL, 500 ml/hr, Infuse Ov er: 1 Hour, Route: IV, ONCE, Priority: STAT, Dosing Weight 84.007 kg, Start date: 09/19/14 7:22:00, Duration: 1 doses or times, Stop date: 09/19/14 7:22:00 Shahz[facility] tello [place] Ondansetron 2014-09-19 13:22:00 No 4 mg, Route: IVP, Drug form: INJ, ONCE, Dosing Weight 84.007, kg, Priority: STAT, Start date: 09/19/14 7:22:00, Stop date: 09/19/14 7:22:00 [facility] [place] Bentyl 2014-09-03 15:30:00 No 20 mg, Route: PO, ONCE, Dosing Weight 77.273, kg, Priority: STAT, Start date: 09/03/14 9:30:00, Stop date: 09/03/14 9:30:00 [facility] Morphine 2014-09-03 15:30:00 No 2 mg, Route: IVP, Drug form: INJ, ONCE, Dosing Weight 77.273, kg, Priority: STAT, Start date: 09/03/14 9:30:00, Stop date: 09/03/14 9:30:00 [facility] Ondansetron 4 MG Oral Tablet [Zofran] 2014-09-03 14:52:00 Y es 4 mg = 1 tab, PO, Q8H, # 10 tab, 0 Refill(s) [facility] Acetaminophen 300 MG / Codeine Phosphate 30 MG Oral Tablet [Tylenol with Codeine #3] 2014-09-03 14:52:00 Yes 1 - 2 tab, PO, Q4H, Pain, # 20 tab, 0 Refill(s) [facility] Dicyclomine Hydrochloride 20 MG Oral Tablet [Bentyl] 2 14:52:00 Yes 20 mg = 1 tab, PO, QID, # 28 tab, 0 Refi ll(s) [facility] Ketorolac 2014-09-03 14:19:00 No 30 mg, Route: IVP, Drug form: INJ, ONCE, Dosing Weight 77.273, kg, Priority: STAT, Start date: 09/03/14 8:19:00, Stop date: 09/03/14 8:19:00 [facility] Morphine 2014-09-03 14:18:00 No 4 mg, Route: IVP, Drug form: INJ, ONCE, Dosing Weight 77.273, kg, Priority: STAT, Start date: 09/03/14 8:18:00, Stop date: 09/03/14 8:18:00 [facility] Ondansetron 2014-09-03 12:46:00 No 4 mg, Route: IVP, ONCE, Dosing Weight 77.273, kg, Priority: STAT, Start date: 09/03/14 6:46:00, Stop date: 09/03/14 6:46:00 [facility] Morphine 2014-09-03 12:46:00 No 4 mg, Route: IVP, ONCE, Dosing Weight 77.273, kg, Priority: STAT, Start date: 09/03/14 6:46:00, Stop date: 09/03/14 6:46:00 [facility] Saline Flush 0.9% 2014-09-03 12:46:00 No Notes: [...] Duration: 30 day, Stop date: 08/31/14 23:51:00 [facility] Topamax 2014-08-02 02:00:00 No Notes: (Same As: Topamax) "Do Not Crush" [facility] Simvastatin 2014-08-02 02:00:00 No Notes: ( Same as: Zocor) [facility] Levemir 2014-08-02 02:00:00 No Notes: Same as Levemir "single patient use only" [facility] duloxetine 2014-08-02 02:00:00 No Notes: (Same as: Cymbalta) (Do Not Crush) [facility] Renvela 2014-08-01 22:00:00 No Notes: Same as: Renvela [facility] ropinirole 2014-08-01 22:00:00 No Notes: (S jim as: Requip) [facility] Lyrica 2014-08-01 22:00:00 No Notes: (Same as: Lyrica) [facility] oxybutynin 2014-08-01 22:00:00 No Notes: Sa me as: Ditropan) [facility] NovoLOG 70/30 2014-08-01 22:00:00 No Notes: Roll in palms of hands gently; Do not shake vigorously. (Same as: NovoLOG Mix) "single patient use only" Stable for 14 days at room temperature Expires in days from Date [facility] gabapentin 300 MG Oral Capsule 2014-08-01 22:00:00 No Notes: (Same as: Neurontin) [facility] tramadol hydrochloride 50 MG Oral Tablet 2014-08-01 19:01:00 No Notes: Not to exceed 400mg/day. (Same As: Ultram) [facility] Promethazine 2014-08-01 19:00:00 No Notes: (Same as: Phenergan) [facility] Midrin 2014-08-01 19:00:00 No Notes: (Same as: Midrin) [facility] sevelamer carbonate 800 MG Oral Tablet [Renvela] 2014-08-01 18:14:00 Yes 1,600 mg = 2 tab, PO, PRN, With Snack [facility] Ascorbic Acid 60 MG / Calcium Pantothena te 10 MG / D-BIOTIN 0.3 MG / Folic Acid 0.8 MG / Niacinamide 20 MG / pyridoxine 10 MG / Riboflavin 1.7 MG / Thiamine 1.5 MG / Vitamin B 12 0.006 MG Oral Tablet [Brooke-Melodie] 2014-08-01 18:1 3:00 Yes 1 tab, PO, Daily [facility] [place] NovoLOG 70/30 2014-08-01 18:13:00 Yes 26 uni t, SUB-Q, TID-Meals [facility] insulin detemir 100 UNT/ML Injectable Solution [Levemir] 2014-08-01 18:11:00 Yes = 60 unit, SUB-Q, Bedtime [facility] DULoxetine 20 mg oral delayed release capsule 2014-08-01 18:10:0 0 Yes 20 mg = 1 cap, PO, [facility] gabap[facility] 100 MG Oral Capsule 2014-08-01 17:59:00 No Notes: (Same as: Neurontin) [facility] Benadryl 2014-08-01 17:48:00 No 25 mg, Route: IVP, ONCE, Dosing Weight 77.273, kg, Priority: STAT, Start date: 08/01/14 12:48:00, Stop date: 08/01/14 12:48:00 [facility] Reglan 2014-08-01 17:48:00 No 10 mg, Route: IVP, Drug form: INJ, ONCE, Dosing Weight 77.273, kg, Priority: STAT, Start date: 08/01/14 12:48:00, Stop date: 08/01/14 12:48:00 [facility] [place] Dilaudid 2014-08-01 17:08:00 No 0.5 mg, Route: IVP, ONCE, Dosing Weight 77.273, kg, Priority: STAT, Start date: 08/01/14 12:08:00, Stop date: 08/01/14 12:08:00 [facility] Dextrose 50% Syringe 2014-08-01 15:07:00 No 12.5 gm, 25 mL, Route: IVP, Drug Form: INJ, Dosing Weight 77.273, kg, PRN, PRN Blood Glucose Results, Start date: 08/01/14 10:07:00, Duration: 30 day, Stop date: 08/31/14 9:06:00 [facility] Glucagon 2014-08-01 15:07:00 No 1 mg, Route: IM, Drug form: PDR/INJ, PRN, Dosing Weight 77.273, kg, PRN Blood Glucose Results, Start date: 08/01/14 10:07:00, Duration: 30 day, Stop date: 08/31/14 9:06:00 [facility] Insulin, Aspart, Human 2014-08-01 15:07:00 No Notes: Roll in palms of hands gently; Do not shake vigorously. (Same as: NovoLOG) "single patient use only" Stable for 28 days at room temperature. Expires in days from Date [facility] Ondansetron 2014-08-01 15:06:00 No Notes: ( Same as: Zofran) [facility] Morphine 2014-08-01 15:06:00 No Not es: (Same as:MORPhine Sulfate) [facility] Dilaudid 2014-08-01 14:12:00 No 0.5 mg, Route: IVP, ONCE, Dosing Weight 77.273, kg, Priority: STAT, Start date: 08/01/14 9:12:00, Stop date: 08/01/14 9:12:00 [facility] Morphine 2014-08-01 13:08:00 No 4 mg, Route: IVP, ONCE, Dosing Weight 77.273, kg, Start date: 08/01/14 8:08:00, Stop date: 08/01/14 8:08:00 [facility] Fentanyl 2014-08-01 12:15:00 No 50 microgram, Route: IVP, ONCE, Dosing Weight 77.273, kg, Priority: STAT, Start date: 08/01/14 7:15:00, Stop date: 08/01/14 7:15:00 [facility] Zofran 2014-08-01 12:15:00 No 4 mg, Route: IVP, Drug form: INJ, ONCE, Dosing Weight 77.273, kg, Priority: STAT, Start date: 08/01/14 7:15:00, Stop date: 08/01/14 7:15:00 [facility] netta lovein 2013-11-26 20:00:00 No Enoch Joseph 0.25 mg, Route: IVP, Drug form: PDR/INJ, ONCE, Dosing Weight 72.273, kg, Start date: 11/26/13 14:00:00, Stop date: 11/26/13 14:00:00(Same As: Cortrosyn) [facility] Maxipime + Sodium Chloride 0.9% IV 100 mL 2013-11-25 02:00 :00 No Zaher Shebib 1 gm, Route: IVP B, [id number], Start date: 11/24/13 20:00:00, Duration: 30 day, Stop date: 12/23/13 20:00:00(Same As: Maxipime) [facility] vancomycin 2013-11-25 00:33:00 No Danielito Setoudeh 1 gm, 200 mL, Route: IVPB, Drug form: INJ, Q-M-W-F, Start date: 11/24/13 18:33:00, Duration: 30 day, Stop date: 12/22/13 21:00:00 [facility] morphine Sulfate 2013-11-24 23:28:00 No Taso Mougouris 2 mg, 1 mL, Route: IVP, Drug form: INJ, Q4H, Dosing Weight 72.273, kg, PRN Pain, Start date: 11/24/13 17:28:00, Duration: 30 day, Stop date: 12/24/13 17:27:00(Same as:MORPhine Sulfate) [facility] Cortrosyn 2013-11-23 21:00:00 No Amir A Rowley 0.25 mg, Route: IVP, Drug form: PDR/INJ, ONCE, Start date: 11/23/13 15:00:00, Stop date: 11/23/13 15:00:00(Same As: Cortrosyn) [facility] sodium chloride 2013-11-23 21:00:00 No Amir A Rowley 2 mL, Route: MISC, Start date: 11/23/13 15:00:00, Stop date: 11/23/13 15:00:00preservative free. [facility] Haldol 2013-11-23 12:37:00 No Octavio Mauro 1 mg, 0.2 mL, Route: IM, Drug form: INJ, Q6H, Dosing Weight 72.273, kg, PRN Agitation, Start date: 11/23/13 6:37:00, Duration: 30 day, Stop date: 12/23/13 6:36:00(Same as: Haldol) [facility] Haldol 2013-11-23 12:36:00 No Octavio Mauro 1 mg, 0.2 mL, Route: IV, Drug form: INJ, Q6H, Dosing Weight 72.273, kg, PRN Agitation, Start date: 11/23/13 6:36:00, Duration: 30 day, Stop date: 12/23/13 6:35:00(Same as: Haldol) [facility] cloNIDine 0.1 mg oral tablet 2013-11-23 12:35:00 No Tigre harth Mauro 0.1 mg, 1 tab, Route: PO, Drug form: TAB, Q6H, Dosing Weight 72.273, kg, PRN See Nurse's Notes, Start date: 11/23/13 6:35:00, Duration: 30 day, Stop date: 12/23/13 6:34:00, prn systolic B/P > 160(Same As: Catapres) [facility] 2013-11-22 22:47:00 No Taso Mougouris 2 mg, 0.4 mL, Route: IM, Drug form: INJ, ONCE, Dosing Weight 72.273, kg, PRN Hallucinations, Start date: 11/22/13 16:47:00, Stop date: 12/22/13 16:46:00(Same as: Haldol) [facility] hydrocortisone 2013-11-22 02:00:00 No Ramdas Nell Kuma r 10 mg, 1 tab, Route: PO, Drug form: TAB, Q8PM, Dosing Weight 72.273, kg, Start date: 11/21/13 20:00:00, Duration: 30 day, Stop date: 12/20/13 20:00:00(Same as: Cortef) Take with food. [facility] hydrocortisone 2013-11-21 02:00:00 No Ramdas Nell Kuma r 5 mg, 1 tab, Route: PO, Drug form: TAB, Q8PM, Dosing Weight 72.273, kg, Start date: 11/20/13 20:00:00, Duration: 30 day, Stop date: 12/19/13 20:00:00(Same as: Cortef) [facility] Epogen (ESRD) 2013-11-20 23:00:00 No Enoch Joseph 15,000 unit, 0.75 mL, Route: SUB-Q, Drug form: INJ, Q-M-W-F, Dosing Weight 72.273, kg, Start date: 11/20/13 17:00:00, Duration: 30 day, Stop date: 12/18/13 17:00:00(Same as: Procrit) epoetin shilpi 66548 unit/1 ml VL [facility] ketorolac 30 mg/mL injectable solution 2013-11-20 19:26:00 [...] muscle. Not for use > 4 days [facility] ketorolac 30 mg/mL injectable solution 2013-11-20 00:00:00 No Enoch Joseph 30 mg, 1 mL, Rou te: IV, Drug form: INJ, Q6H, Dosing Weight 72.273, kg, Start date: 11/19/13 18:00:00, Duration: 4 day, Stop date: 11/23/13 12:00:00(Same as:Toradol) IV bolus must be given >15 seconds. Give IM administration slowly and deeply into the muscle. Not for use > 4 days [facility] Phenergan + Sodium Chloride 0.9% IV 50 mL 2013-11-18 17:54 :00 No Jonathan Vogel 25 mg, 1 mL, R oute: IVPB, Q4H, PRN Nausea & Vomiting, Start date: 11/18/13 11:54:00, Duration: 30 day, Stop date: 12/18/13 11:53:00Do not give IV push. (Same as: Phenergan) [facility] Sodium Chloride 0.9% (titrate) 250 mL 2013-11-17 15:22:00 No Joselowallace Joseph 250 mL, Rate: banquet server on call for use with blood product administration, Dosing Weight 72.273, kg, Route: IV, Total Volume: 250, Start Date: 11/17/13 9:22:00, Duration: 30 day, Stop date: 12/17/13 9:21:00, Replace Every: 24 hr Brennon Camarena d50 syringe 2013-11-17 15:20:00 No Alisharoxann Joseph 25 gm, 50 mL, Route: IV, [...] day, Stop date: 12/16/13 16:00:00(Same as:Robaxin) Brennon Faydai rosales Imodium A-D 2013-11-17 00:00:00 No Taso Mougouris 4 mg, 2 cap, Route: PO, Drug form: CAP, Q6H, Dosing Weight 72.273, kg, Start date: 11/16/13 18:00:00, Duration: 30 day, Stop date: 12/16/13 12:00:00(Same as: Imodium) MAX adult dose is 8 caps/day Brennon Gómez n Robaxin + Sodium Chloride 0.9% IV [...] as:Mycostatin, Nilstat) For external use only. Bren l [place] hydrocortisone 2013-11-15 20:00:00 No Ramwallace Camejo Kuma r 5 mg, 1 tab, Route: PO, Drug form: TAB, Q2PM, Dosing Weight 72.273, kg, Start date: 11/15/13 14:00:00, Stop date: 12/14/13 14:00:00(Same as: Cortef) [facility] Protonix 2013-11-15 13:30:00 No Taso Mougouris 40 mg, 1 tab, Route: PO, Drug form: ECTAB, Before Breakfast, Start date: 11/15/13 7:30:00, Duration: 30 day, Stop date: 12/14/13 7:30:00Tablet should not be chewed or crushed. (Same as: Protonix) [facility] pantoprazole 2013-11-14 13:30:00 No Taso Mougouris 40 mg, Route: PO, Drug form: INJ, Before Breakfast, Dosing Weight 72.273, kg, Start date: 11/14/13 7:30:00, Duration: 30 day, Stop date: 12/13/13 7:30:00For IV push reconstitute with 10 ml 0.9% sodium chloride and push over 2 minutes. (Same as: Protonix) [facility] carvedilol 2013-11-14 03:00:00 No Taso Mougouris 3.125 mg, Route: PO, Drug form: TAB, Q12H, Dosing Weight 72.273, kg, Start date: 11/13/13 21:00:00, Duration: 30 day, Stop date: 12/13/13 9:00:00 [facility] Topamax 2013-11-14 03:00:00 No Taso Mougouris 50 mg, 2 tab, Route: PO, Drug form: TAB, Bedtime, Dosing Weight 72.273, kg, Start date: 11/13/13 21:00:00, Duration: 30 day, Stop date: 12/12/13 21:00:00(Same As: Topamax) "Do Not Crush" [facility] simvastatin 2013-11-14 03:00:00 No Taso Mougouris 10 mg, Route: PO, Drug form: TAB, Bedtime, Dosing Weight 72.273, kg, Start date: 11/13/13 21:00:00, Duration: 30 day, Stop date: 12/12/13 21:00:00 [facility] 2013-11-13 23:00:00 No Taso Mougouris 2,400 mg, 3 tab, Route: PO, Drug form: TAB, TID-Meals, Dosing Weight 72.273, kg, Start date: 11/13/13 17:00:00, Duration: 30 day, Stop date: 12/13/13 12:00:00Same as: Renvela [facility] Epogen (ESRD) 2013-11-13 23:00:00 No Enoch Joseph 10,000 unit, 1 mL, Route: SUB-Q, Drug form: INJ, Q-M-W-F, Dosing Weight 72.273, kg, Start date: 11/13/13 17:00:00, Duration: 30 day, Stop date: 12/11/13 17:00:00(Same as: Procrit) epoetin shilpi 52690 unit/1 ml VL. [facility] Lyrica 2013-11-13 23:00:00 No Taso Mougouris 75 mg, 1 cap, Route: PO, Drug form: CAP, BID, Dosing Weight 72.273, kg, Start date: 11/13/13 17:00:00, Duration: 30 day, Stop date: 12/13/13 9:00:00(Same as: Lyrica) [facility] oxybutynin 2013-11-13 23:00:00 No Taso Mougouris 5 mg, 1 tab, Route: PO, Drug form: TAB, BID, Dosing Weight 72.273, kg, Start date: 11/13/13 17:00:00, Duration: 30 day, Stop date: 12/13/13 9:00:00Same as: Ditropan) [facility] gabapentin 300 mg oral capsule 2013-11-13 23:00:00 No T aso Mougouris 300 mg, 1 cap, Route: PO, Drug form: CAP, BID, Dosing Weight 72.273, kg, Start date: 11/13/13 17:00:00, Duration: 30 day, Stop date: 12/13/13 9:00:00(Same as: Neurontin) [facility] carvedilol 2013-11-13 23:00:00 No Ramwallace Ballda Joseph 3.125 mg, 1 tab, Route: PO, Drug form: TAB, BID, Dosing Weight 72.273, kg, Start date: 11/13/13 17:00:00, Duration: 30 day, Stop date: 12/13/13 9:00:00Give with food. (Same As: Coreg) [facility] rOPINIRole 2013-11-13 19:00:00 No Taso Mougouris 0.25 mg, 1 tab, Route: PO, Drug form: TAB, TID, Dosing Weight 72.273, kg, Start date: 11/13/13 13:00:00, Duration: 30 day, Stop date: 12/13/13 9:00:00(Same as: Requip) [facility] tramadol 50 mg oral tablet 2013-11-13 19:00:00 No Taso Mougouris 50 mg, 1 tab, Route: PO, Drug form: TAB, TID, Dosing Weight 72.273, kg, Start date: 11/13/13 13:00:00, Duration: 30 day, Stop date: 12/13/13 9:00:00Not to exceed 400mg/day. (Same As: Ultram) [facility] arabella promethazine 2013-11-13 18:22:00 No Taso Mougouris 25 mg, 1 tab, Route: PO, Drug form: TAB, Q8H, Dosing Weight 72.273, kg, PRN as needed for nausea/vomiting, Start date: 11/13/13 12:22:00, Duration: 30 day, Stop date: 12/13/13 12:21:00(Same as: Phenergan) [facility] 2013-11-13 18:22:00 No Taso Mougouris 5 mg, Route: PO, Drug form: TAB, BID, Dosing Weight 72.273, kg, PRN, Start date: 11/13/13 12:22:00, Duration: 30 day, Stop date: 12/13/13 12:21:00, urinary spasm [facility] Nitrostat 0.4 mg sublingual tablet 2013-11-13 18:21:00 N o Taso Mougouris 0.4 mg, 1 tab, Route: Dr NIEVES ug form: TAB, Q5Min, Dosing Weight 72.273, kg, PRN as needed for chest pain, Start date: 11/13/13 12:21:00, Duration: 30 day, Stop date: 12/13/13 12:20:00(Same as:Nitroquick, Nitrostat) "Do Not Crush" Sublingual tablet [facility] midodrine 2013-11-13 18:21:00 No Taso Mougouris 10 mg, 2 tab, Route: PO, Drug form: TAB, During Dialysis, Dosing Weight 72.273, kg, PRN Hypotension, Start date: 11/13/13 12:21:00, Duration: 30 day, Stop date: 12/13/13 12:20:00(Same as:Proamatine) [facility] Flexeril 2013-11-13 18:21:00 No Taso Mougouris 5 mg, 0.5 tab, Route: PO, Drug form: TAB, PRN, Dosing Weight 72.273, kg, PRN Muscle Spasms, Start date: 11/13/13 12:21:00, Duration: 30 day, Stop date: 12/13/13 12:20:00(Same As: Flexeril) [facility] Ambien 2013-11-12 23:09:00 No Bertha Seerangan 5 mg, 1 tab, Route: PO, Drug form: TAB, Bedtime, Dosing Weight 72.273, kg, PRN Insomnia, Start date: 11/12/13 17:09:00, Duration: 30 day, Stop date: 12/12/13 17:08:00(Same As: Ambien) [facility] Phenergan 2013-11-12 15:14:00 No Dorene Le Jr 25 mg, 1 mL, Route: IVP Central, Drug form: INJ, Q4H, Dosing Weight 72.273, kg, PRN Nausea & Vomiting, Start date: 11/12/13 9:14:00, Duration: 30 day, Stop date: 12/12/13 9:13:00Do not give IV push. (Same as: Phenergan) [facility] sterile water 300 mL + Dextrose 50% in Water IV 100 gm 2013-11-12 01:13:00 No Enoch Camejo Rajesh 300 mL, 6 0 ml/hr, Route: IVP, Drug Form: INJ, Dosing Weight 72.273, kg, Start date: 11/11/13 19:13:00, Duration: 30 day, Stop date: 12/11/13 19:12:00 Brennon Camarena [id number] 500 mL 2013-11-12 00:40:00 No Bertha Bradfordangan 500 mL, Rate: 60 ml/hr, Infuse over: 8.3 hr, Route: IV, Dosing Weight 72.273 kg, Total Volume: 500, Start date: 11/11/13 18:40:00, Stop date: 12/12/13 18:39:00 Brennon Camarena Phenergan 2013-11-11 20:33:00 No Dorene Le Jr 25 mg, 1 mL, Route: IM, Drug form: INJ, Q6H, Dosing Weight 72.273, kg, PRN Nausea & Vomiting, Start date: 11/11/13 14:33:00, Duration: 30 day, Stop date: 12/11/13 14:32:00Do not give IV push. (Same as: Phenergan) Angelito hollis Migue Phenergan 2013-11-11 19:18:00 No Dorene Le Jr 25 mg, 1 tab, Route: PO, Drug form: TAB, Q4H, Dosing Weight 72.273, kg, PRN Nausea & Vomiting, Start date: 11/11/13 13:18:00, Duration: 30 day, Stop date: 12/11/13 13:17:00(Same as: Phenergan) [facility] promethazine 25 mg oral tablet 2013-11-11 18:09:00 Yes T aso Mougouris 25 mg = 1 tab, PO, Q8H, as needed for nausea/vomiting, 0 Refill(s) [facility] oxybutynin 5 mg oral tablet 2013-11-11 18:09:00 Yes Taso Mougouris 5 mg = 1 tab, PO, BID, Other-See Comments, # 30 tab, 0 Refill(s) [facility] Levemir FlexPen 2013-11-11 18:09:00 No 16 units [...] 50 mg =, PO, Bedtime, Refill(s) 0 [facility] Flexeril 5 mg oral tablet [...] push over 2 minutes. (Same as: Protonix) [facility] nitroglycerin 0.4 mg sublingual tablet 2013-11-10 12:27:00 No Jonathan Buddhism Jaspreet 0.4 mg, 1 tab, R oute: SL, Drug form: TAB, Q5Min, PRN Chest Pain, Start date: 11/10/13 6:27:00, Duration: 30 day, Stop date: 12/10/13 6:26:00(Same as:Nitroquick, Nitrostat) "Do Not Crush" Sublingual tablet [facility] atropine 2013-11-10 12:26:00 No Jonathan Buddhism Jaspreet 0.5 mg, 5 mL, Route: IVP, Drug form: INJ, PRN, PRN Bradycardia, Start date: 11/10/13 6:26:00, Duration: 30 day, Stop date: 12/10/13 6:25:00 [facility] Zofran 2013-11-10 12:15:00 No Jonathan Buddhism Jaspreet 4 mg, 2 mL, Route: IV, Drug form: INJ, Q4H, Dosing Weight 75, kg, PRN as needed for nausea/vomiting, Start date: 11/10/13 6:15:00, Duration: 30 day, Stop date: 12/10/13 6:14:00(Same as: Zofran) Francisco baum [place] acetaminophen 2013-11-10 12:15:00 No Taso Mougouris 650 mg, 20.3 mL, Route: PO, Drug form: LIQ, Q4H, Dosing Weight 75, kg, PRN Pain 1-3/Temp > 100.4 F, Start date: 11/10/13 6:15:00, Stop date: 12/10/13 6:14:00Max acetaminophen = 4000mg/day (4 gm/day). (Same as: Tylenol) [facility] acetaminophen-hydrocodone 325 mg-5 mg oral tablet 12:15:00 No Fran L Agraharkar 1 tab, Rou te: PO, Drug Form: TAB, Dosing Weight 75, kg, Q4H, PRN Pain Score 1-3, Start date: 11/10/13 6:15:00, Duration: 30 day, Stop date: 12/10/13 6:14:00(Same as: Copake 325/5) Do not exceed 4gm/day of acetaminophen. [facility] docusate 2013-11-10 12:15:00 No Jonathan Vogel 100 mg, 1 cap, Route: PO, Drug form: CAP, BID, Dosing Weight 75, kg, PRN Constipation, Start date: 11/10/13 6:15:00, Duration: 30 day, Stop date: 12/10/13 6:14:00(Same as: Colace) (Do Not Crush) [facility] sodium chloride 154 mEq + Dextrose 10% in Water IV 961.5 mL 2013-11-10 10:12:00 No Bertha Seerangan 961 .5 mL, Rate: 100 ml/hr, Infuse over: 10 hr, Route: IV, Dosing Weight 75 kg, Total Volume: 1,000, Start date: 11/10/13 4:12:00, Stop date: 12/10/13 4:11:00 Mem oribautista Migue [id number] 1000 mL 2013-11-10 10:08:00 No Marco Gutierrez Stepan 1,000 mL, Rate: 125 ml/hr, Infuse over: 8 hr, Route: IV, Dosing Weight 75 kg, Total Volume: 1,000, Start date: 11/10/13 4:08:00, Duration: 30 day, Stop date: 12/10/13 4:07:00 [facility] Flagyl 2013-08-10 19:00:00 No Enayet Rahim 500 mg, 1 tab, Route: PO, Drug form: TAB, [id number], Dosing Weight 89.5, kg, Start date: 08/10/13 14:00:00, Duration: 30 day, Stop date: 09/09/13 6:00:00(Same as: Flagyl) Take with food/ avoid alcohol [facility] influenza virus vaccine, inactivated 2013-08-10 16:00:00 No [...] Enayet Rahim 250 mg, 1 tab, PO, [id number], 20 tab, Substitution Allowed, TAB Brennon Camarena Cipro 2013-08-10 13:00:00 No Enayet Rahim 250 mg, 1 tab, Route: PO, Drug form: TAB, [id number], Dosing Weight 89.5, kg, Start date: 08/10/13 [...] be chewed or crushed. (Same as: Protonix) [facility] Epo (ESRD) 2013-08-09 14:00:00 No Enoch Joseph 3,000 unit, Route: SUB-Q, Q-M-W-F, Dosing Weight 92.869, kg, Start date: 08/09/13 9:00:00, Duration: 30 day, Stop date: 09/08/13 8:59:00 [facility] Dilaudid 2013-08-09 02:03:00 No Sharon Madrigaleen Candace 1 mg, 1 mL, Route: IV, Drug form: INJ, Q3H, Dosing Weight 92.869, kg, PRN Pain Score 4-6, Start date: 08/08/13 21:03:00, Duration: 30 day, Stop date: 09/07/13 21:02:00 [facility] Epo (ESRD) 2013-08-07 14:00:00 No Bertha Martin 3,000 unit, 1 mL, Route: SUB-Q, Drug form: INJ, Q-M-W-F, Dosing Weight 81.818, kg, Start date: 08/07/13 9:00:00, Duration: 30 day, Stop date: 09/06/13 8:59:00(Same as: Procrit) epoetin shilpi 3000 unit/1 ml VL. [facility] potassium chloride 2013-08-07 10:44:00 No Bertha Barrera sagrario 40 mEq, 2 tab, Route: PO, Drug form: ERTAB, ONCE, Dosing Weight 92.869, kg, Priority: NOW, Start date: 08/07/13 5:44:00, Stop date: 08/07/13 5:44:00(Same as: K-Dur 20) "Do Not Crush" With food and full glass of water [facility] Protonix 2013-08-06 21:30:00 No Enayet Rahim 40 mg, Route: IVP, Drug form: INJ, Before Dinner, Dosing Weight 81.818, kg, Patient is NPO, Start date: 08/06/13 16:30:00, Duration: 30 day, Stop date: 09/05/13 16:29:00For IV push reconstitute with 10 ml 0.9% sodium chloride and push over 2 minutes. (Same as: Protonix) [facility] Cipro 2013-08-06 21:00:00 No Ramdas Nell Joseph 400 mg, 200 mL, Route: IVPB, Drug form: INJ, [id number], Start date: 08/06/13 16:00:00, Duration: 30 day, Stop date: 09/05/13 20:59:00Do not refrigerate [facility] potassium chloride 2013-08-06 15:49:00 No Bertha Barrera sagrario 20 mEq, 1 tab, Route: PO, Drug form: ERTAB, ONCE, Dosing Weight 81.818, kg, Start date: 08/06/13 10:49:00, Stop date: 08/06/13 10:49:00(Same as: K-Dur 20) "Do Not Crush" With food and full glass of water [facility] ropinirole 2013-08-06 14:00:00 No Enayet Rahim 0.25 mg, 1 tab, Route: PO, Drug form: TAB, TID, Dosing Weight 81.818, kg, Start date: 08/06/13 9:00:00, Duration: 30 day, Stop date: 09/05/13 8:59:00(Same as: Requip) [facility] Lyrica 2013-08-06 14:00:00 No Ramdas Nell Joseph 75 mg, 1 cap, Route: PO, Drug form: CAP, BID, Dosing Weight 81.818, kg, Start date: 08/06/13 9:00:00, Duration: 30 day, Stop date: 09/05/13 8:59:00(Same as: Lyrica) [facility] oxybutynin 2013-08-06 14:00:00 No Enayet Rahim 5 mg, 1 tab, Route: PO, Drug form: TAB, BID, Dosing Weight 81.818, kg, Start date: 08/06/13 9:00:00, Duration: 30 day, Stop date: 09/05/13 8:59:00Same as: Ditropan) [facility] gabapentin 300 mg oral capsule 2013-08-06 14:00:00 No Ramdas Nell Joseph 300 mg, 1 cap, Route: PO, Dr ug form: CAP, BID, Dosing Weight 81.818, kg, Start date: 08/06/13 9:00:00, Duration: 30 day, Stop date: 09/05/13 8:59:00(Same as: Neurontin) [facility] Oscarvela 2013-08-06 13:00:00 No Ramadelfos Nell Joseph 2,400 mg, 3 tab, Route: PO, Drug form: TAB, TID-Meals, Dosing Weight 81.818, kg, Start date: 08/06/13 8:00:00, Duration: 30 day, Stop date: 09/05/13 7:59:00Same as: [facility] heparin 2013-08-06 05:00:00 No Enayet Rahim 5,000 unit, 1 mL, Route: SUB-Q, Drug form: INJ, Q8H, Dosing Weight 81.818, kg, Start date: 08/06/13 0:00:00, Duration: 30 day, Stop date: 09/04/13 23:59:00porcine heparin [facility] Topamax 2013-08-06 02:00:00 No Enayet Rahim 50 mg, 2 tab, Route: PO, Drug form: TAB, Bedtime, Dosing Weight 81.818, kg, Start date: 08/05/13 21:00:00, Duration: 30 day, Stop date: 09/04/13 20:59:00(Same As: Topamax) "Do Not Crush" [facility] simvastatin 2013-08-06 02:00:00 No Enayet Rahim 10 mg, 1 tab, Route: PO, Drug form: TAB, Bedtime, Dosing Weight 81.818, kg, Start date: 08/05/13 21:00:00, Duration: 30 day, Stop date: 09/04/13 20:59:00(Same as: Zocor) [facility] carvedilol 2013-08-06 02:00:00 No Bertha Seerangan 3.125 mg, 1 tab, Route: PO, Drug form: TAB, Q12H, Dosing Weight 81.818, kg, Start date: 08/05/13 21:00:00, Duration: 30 day, Stop date: 09/04/13 20:59:00Give with food. (Same As: Coreg) [facility] nitroglycerin 0.4 mg sublingual tablet 2013-08-05 23:28:00 No Enayet Rahim 0.4 mg, 1 tab, Route : SL, Drug form: TAB, Q5Min, PRN Chest Pain, Start date: 08/05/13 18:28:00, Duration: 30 day, Stop date: 09/04/13 17:27:00(Same as:Nitroquick, Nitrostat) "Do Not Crush" Sublingual tablet [facility] atropine 2013-08-05 23:28:00 No Enayet Rahim 0.5 mg, 5 mL, Route: IVP, Drug form: INJ, PRN, PRN Bradycardia, Start date: 08/05/13 18:28:00, Duration: 30 day, Stop date: 09/04/13 17:27:00 [facility] insulin aspart 2013-08-05 23:18:00 No Enayet Rahim [...] room temperature. Expires in days from Date [facility] glucagon 2013-08-05 23:18:00 No Enayet Rahim 1 mg, Route: IM, Drug form: PDR/INJ, PRN, Dosing Weight 81.818, kg, PRN Blood Glucose Results, Start date: 08/05/13 18:18:00, Duration: 30 day, Stop date: 09/04/13 17:17:00 [facility] Dextrose 50% Syringe 2013-08-05 23:18:00 No Enayet Rahi m 25 gm, 50 mL, Route: IVP, Drug Form: INJ, Dosing Weight 81.818, kg, PRN, PRN Blood Glucose Results, Start date: 08/05/13 18:18:00, Duration: 30 day, Stop date: 09/04/13 17:17:00 [facility] Dilaudid 2013-08-05 23:17:00 No Enayet Rahim 2 mg, 2 mL, Route: IV, Drug form: INJ, Q3H, Dosing Weight 81.818, kg, PRN Pain Score 7-10, Start date: 08/05/13 18:17:00, Duration: 30 day, Stop date: 09/04/13 18:16:00 [facility] midodrine 2013-08-05 23:14:00 No Enayet Rahim 10 mg, 2 tab, Route: PO, Drug form: TAB, During Dialysis, Dosing Weight 81.818, kg, PRN Bradycardia, Start date: 08/05/13 18:14:00, Duration: 30 day, Stop date: 09/04/13 17:13:00(Same as:Proamatine) [facility] Nitrostat 0.4 mg sublingual tablet 2013-08-05 23:14:00 N o Enayet Rahim 0.4 mg, 1 tab, Route: SL, Drug form: TAB , Q5Min, Dosing Weight 81.818, kg, PRN as needed for chest pain, Start date: 08/05/13 18:14:00, Duration: 30 day, Stop date: 09/04/13 17:13:00 [facility] potassium chloride 2013-08-05 22:57:00 No Bertha Felderan sagrario 20 mEq, 1 tab, Route: PO, Drug form: ERTAB, ONCE, Dosing Weight 81.818, kg, Start date: 08/05/13 17:57:00, Stop date: 08/05/13 17:57:00(Same as: K-Dur 20) "Do Not Crush" With food and full glass of water [facility] ondansetron 2013-08-05 22:33:00 No Enayet Rahim 4 mg, 2 mL, Route: IVP, Drug form: INJ, Q8H, Dosing Weight 81.818, kg, PRN Nausea & Vomiting, Start date: 08/05/13 17:33:00, Duration: 30 day, Stop date: 09/04/13 17:32:00(Same as: Zofran) [facility] acetaminophen 2013-08-05 22:33:00 No Enayet Rahim 650 mg, 20.3 mL, Route: PO, Drug form: LIQ, Q4H, Dosing Weight 81.818, kg, PRN Pain 1-3/Temp > 100.4 F, Start date: 08/05/13 17:33:00, Duration: 30 day, Stop date: 09/04/13 17:32:00Max acetaminophen = 4000mg/day (4 gm/day). (Same as: Tylenol) [facility] Flagyl 2013-08-05 22:33:00 No Enayet Rahim 500 mg, 100 mL, Route: IVPB, Drug form: INJ, Q6H, Dosing Weight 81.818, kg, Priority: STAT, Start date: 08/05/13 17:33:00, Duration: 30 day, Stop date: 09/04/13 6:00:00(Same as: Flagyl) Avoid alcohol. [facility] Cipro 2013-08-05 22:33:00 No Enayet Rahim 400 mg, Route: IVPB, Q12H, Dosing Weight 81.818, kg, Priority: STAT, Start date: 08/05/13 17:33:00, Duration: 30 day, Stop date: 09/04/13 17:32:00 [facility] ondansetron 2013-08-05 22:04:00 No Shelise Juancarlos ford 4 mg, Route: IVP, Drug form: INJ, ONCE, Dosing Weight 81.818, kg, Start date: 08/05/13 17:04:00, Stop date: 08/05/13 17:04:00 [facility] Cipro 2013-08-05 21:02:00 No Shelise Juancarlos Narayanan 400 mg, Route: IVPB, ONCE, Dosing Weight 81.818, kg, Start date: 08/05/13 16:02:00, Stop date: 08/05/13 16:02:00 [facility] Flagyl 2013-08-05 21:01:00 No Shelise Juancarlos Narayanan 500 mg, Route: IVPB, ONCE, Dosing Weight 81.818, kg, PRN, Start date: 08/05/13 16:01:00, stat [facility] Novolog Mix 70/30 PenFill subcutaneous suspension 2013-08-05 20:25:39 Yes 4-12 units, SUB-Q, S liding Scale, PRN, 4 units (BS 180-200) 8 units (BS 201-250) 10 units (BS 251-300) 12 units (BS 301-400), blood glucose, Substitution Allowed4 units (BS 180-200) 8 units (BS 201-250) 10 units (BS 251- 300) 12 units (BS 301-400) [facility] Sumeet kennedy Topamax 50 mg oral tablet 2013-08-05 20:24:51 Yes Enayet Rahim 50 mg, 1 tab, PO, Bedtime, 60 tab, Substitution Allowed, TAB [facility] Nitrostat 0.4 mg sublingual tablet 2013-08-05 20:24:34 Y es Enayet Rahim 0.4 mg, 1 tab, SL, Q5Min, PRN, 100 tab, Chest Pain, Substitution Allowed [facility] Migue Midrin 2013-08-05 20:23:46 Yes 1 cap, PO, PRN, PRN, migraine headache, Substitution Allowed, Maintenance [facility] Flexeril 5 mg oral tablet 2013-08-05 20:23:02 Yes 5 mg, 1 tab, PO, PRN, PRN, muscle spasms, Substitution Allowed [facility] midodrine 10 mg oral tablet 2013-08-05 20:22:03 Yes 10 mg, 1 tab, PO, During Dialysis, Dialysis M-W-F, 270 tab, Substitution Allowed, TABDialysis M-W-F [facility] Lyrica 75 mg oral capsule 2013-08-05 20:21:43 Yes Enayet Rahim 75 mg, 1 cap, PO, BID, 90 cap, Substitution Allowed, CAP [facility] gabapentin 300 mg oral capsule 2013-08-05 20:21:17 Yes E nayet Rahim 300 mg, 1 cap, PO, BID, 90 cap, Substitution Allowed [facility] Zofran 2013-08-05 14:11:00 No Severino Chantal 4 mg, Route: IVP, Drug form: INJ, ONCE, Dosing Weight 81.818, kg, Priority: STAT, Start date: 08/05/13 9:11:00, Stop date: 08/05/13 9:11:00 [facility] mehreen Camarena morphine Sulfate 2013-08-05 12:09:00 No Severino Chantal 4 mg, Route: IVP, ONCE, Dosing Weight 81.818, kg, Priority: STAT, Start date: 08/05/13 7:09:00, Stop date: 08/05/13 7:09:00 [facility] mehreen Camarena ondansetron 2013-08-05 12:09:00 No Severino Chantal 4 mg, Route: IVP, ONCE, Dosing Weight 81.818, kg, Priority: STAT, Start date: 08/05/13 7:09:00, Stop date: 08/05/13 7:09:00 [facility] Saline Flush 0.9% 2013-08-05 12:09:00 No Enayet Rahim 5 mL, Route: IVP, Drug Form: INJ, Dosing Weight 81.818, kg, PRN, PRN Line Flush, Start date: 08/05/13 7:09:00, Duration: 24 hr, Stop date: 08/06/13 7:08:00(Same as: BD Posiflush) [facility] morphine Sulfate 2013-08-03 23:05:00 No Michelet Narayanan 4 mg, Route: IVP, Drug form: INJ, ONCE, Dosing Weight 88, kg, Priority: STAT, Start date: 08/03/13 18:05:00, Stop date: 08/03/13 18:05:00 [facility] pantoprazole 40 mg oral enteric coated tablet 2013-08-03 2 2:39:35 No Michelet Narayanan 40 mg, 1 tab, P O, Daily, 30 tab, Substitution Allowed, ECTAB [facility] Vicodin 5/500 oral tablet 2013-08-03 22:38:51 Yes Enayet Rahim 1-2 tablets, PO, Q4-6H, PRN, 30 tab, for Pain, Substitution Allowed, Maintenance [facility] Phenergan 25 mg oral tablet 2013-08-03 22:38:22 Yes Enay et Rahim 25 mg, 1 tab, PO, Q4H, PRN, 25 tab, Nausea, Substitution Allowed [facility] Carafate 1 g oral tablet 2013-08-03 22:38:07 No She eder Juancarlos Narayanan 1 gm, 1 tab, PO, QID-Before Meals, 120 tab, Substitution Allowed Brennon Camarena Phenergan 2013-08-03 21:57:00 No Ailynrandi Gracia s 25 mg, Route: IM, ONCE, Dosing Weight 88, kg, Priority: STAT, Start date: 08/03/13 16:57:00, Stop date: 08/03/13 16:57:00 [facility] Pratik bell Dextrose 50% Syringe 2013-08-03 21:40:00 No Michelet culp Oracio 25 gm, Route: IVP, Dosing Weight 88, kg, ONCE, STAT, Start date: 08/03/13 16:40:00, Stop date: 08/03/13 16:40:00 [facility] Sulfate 2013-08-03 20:49:00 No Michelet Narayanan 4 mg, Route: IVP, Drug form: INJ, ONCE, Dosing Weight 88, kg, Priority: STAT, Start date: 08/03/13 15:49:00, Stop date: 08/03/13 15:49:00 [facility] [place] Saline Flush 0.9% 2013-08-03 20:17:00 No Michelet Moore 5 mL, Route: IVP, Drug Form: INJ, Dosing Weight 88, kg, PRN, PRN Line Flush, Start date: 08/03/13 15:17:00, Duration: 24 hr, Stop date: 08/04/13 15:16:00(Same as: BD Posiflush) [facility] [place] ondansetron 2013-08-03 20:17:00 No Michelet ford 4 mg, Route: IVP, ONCE, Dosing Weight 88, kg, Priority: STAT, Start date: 08/03/13 15:17:00, Stop date: 08/03/13 15:17:[address] [facility] Carafate 1 g oral tablet 2013-07-30 16:34:18 No Taso Mo ugouris 1 gm, 1 tab, PO, QID-Before Meals, 120 tab, Substitution Allowed, TAB [facility] [place] Phenergan 25 mg oral tablet 2013-07-30 16:33:54 No Taso Mougouris 25 mg, PO, Q4H, PRN, 30 tab, Allergic reaction, Substitution Allowed, TAB [facility] [place] Phenergan 2013-07-30 16:33:00 No Taso Mougouris 25 mg, 1 tab, Route: PO, Drug form: TAB, Q4H, Dosing Weight 90.909, kg, PRN Allergic reaction, Start date: 07/30/13 11:33:00, Duration: 30 day, Stop date: 08/29/13 11:32:00(Same as: Phenergan) [facility]10 mL oral suspension 2013-07-28 18:00:00 No Ezequiel Enriquez 1 gm, 1 tab, Rou te: PO, Drug form: TAB, QID-Before Meals, Dosing Weight 90.909, kg, Start date: 07/28/13 13:00:00, Stop date: 08/27/13 11:30:00May interfere w/enteral feeds - Take 1 hr before or 2 hr after antacids, dairy pdt, meals & minerals - On empty stomach. (Same As: Carafate) [facility] morphine Sulfate 2013-07-27 16:32:00 No Ramdas Nell Ku mar 2 mg, 1 mL, Route: IVP, Drug form: INJ, Q6H, Dosing Weight 90.909, kg, PRN Pain Score 6-10, Start date: 07/27/13 11:32:00, Duration: 30 day, Stop date: 08/26/13 11:31:00(Same as:MORPhine Sulfate) Shahzad tello [place] morphine Sulfate 2013-07-27 16:31:00 No Ramdas Nell Ku mar 2 mg, Route: IVP, Q4H, Dosing Weight 90.909, kg, PRN Pain, Start date: 07/27/13 11:31:00, Duration: 30 day, Stop date: 08/26/13 11:30:00 Brennon Camarena Reglan 2013-07-27 05:00:00 No Ramdas Nell Joseph 5 mg, 1 mL, Route: IV, Drug form: INJ, Q6H, Start date: 07/27/13 0:00:00, Duration: 30 day, Stop date: 08/25/13 18:00:00(Same as: Reglan) [facility] epoetin shilpi 2013-07-26 22:00:00 No Enoch Joseph 2,000 unit, 1 mL, Route: SUB-Q, Drug form: INJ, Q-M-W-F, Start date: 07/26/13 17:00:00, Duration: 30 day, Stop date: 08/23/13 17:00:00(Same as: Procrit) epoetin shilpi 2000 unit/1 ml VL [facility] Epogen (ESRD) 2013-07-26 22:00:00 No Enoch Joseph 3,000 unit, 1 mL, Route: SUB-Q, Drug form: INJ, Q-M-W-F, Dosing Weight 90.909, kg, Start date: 07/26/13 17:00:00, Duration: 30 day, Stop date: 08/23/13 17:00:00(Same as: Procrit) epoetin shilpi 3000 unit/1 ml VL. [facility] Reglan 10 mg oral tablet 2013-07-26 21:30:00 No Enoch Joseph 10 mg, 1 tab, Route: PO, Drug form: TAB, TID-Before Meals, Dosing Weight 90.909, kg, Start date: 07/26/13 16:30:00, Duration: 30 day, Stop date: 08/25/13 11:30:00(Same as: Reglan) Take 30 min before meals [facility] NS 1,000 mL 2013-07-25 19:44:00 No Enoch Joseph 1,000 mL, Rate: 40 ml/hr, Infuse over: 25 hr, Route: IV, Dosing Weight 90.909 kg, Total Volume: 1,000, Start date: 07/25/13 14:44:00, Duration: 1 day, Stop date: 07/26/13 14:43:00 [facility] Novolog Mix 70/30 PenFill 2013-07-25 17:00:00 No Callum orr 26 unit, 0.26 mL, Route: SUB-Q, Drug form: INJ, Lunch, Dosing Weight 90.909, kg, Start date: 07/25/13 12:00:00, Duration: 30 day, Stop date: 08/23/13 12:00:00Roll in palms of hands gently; Do not shake vigorously. (Same as: NovoLog Mix) "single patient use only" Stable for 14 days at room temperature Expires in days from Date [facility] insulin detemir 2013-07-25 14:00:00 No Taso Mougouris 16 unit, 0.16 mL, Route: SUB-Q, Drug form: INJ, QAM, Dosing Weight 90.909, kg, Start date: 07/25/13 9:00:00, Duration: 30 day, Stop date: 08/23/13 9:00:00Same as Levemir "single patient use only" [facility] nn Novolog Mix 70/30 PenFill 2013-07-25 13:00:00 No Taso M ougouris 30 unit, 0.3 mL, Route: SUB-Q, Drug form: INJ, Breakfast, Dosing Weight 90.909, kg, Start date: 07/25/13 8:00:00, Duration: 30 day, Stop date: 08/23/13 8:00:00Roll in palms of hands gently; Do not shake vigorously. (Same as: NovoLog Mix) "single patient use only" Stable for 14 days at room temperature Expires in days from Date Shahzad tello [place] pantoprazole 2013-07-25 12:30:00 No Taso Mougouris 40 mg, 1 tab, Route: PO, Drug form: ECTAB, Before Breakfast, Dosing Weight 90.909, kg, Start date: 07/25/13 7:30:00, Duration: 30 day, Stop date: 08/23/13 7:30:00Tablet should not be chewed or crushed. (Same as: Protonix) [facility] Sodium Chloride 0.9% IV 2013-07-25 09:21:00 No Minor Ng oc Cardenas IV, 0 ml/hr, ONCE, Start date: 07/25/13 4:21:00, 1,000 ml [facility] simvastatin 2013-07-25 02:00:00 No Taso Mougouris 10 mg, 1 tab, Route: PO, Drug form: TAB, Bedtime, Dosing Weight 90.909, kg, Start date: 07/24/13 21:00:00, Duration: 30 day, Stop date: 08/22/13 21:00:00(Same as: Zocor) [facility] carvedilol 2013-07-25 02:00:00 No Gaxiola Amanda Cardenas 3.125 mg, 1 tab, Route: PO, Drug form: TAB, Q12H, Dosing Weight 90.909, kg, Start date: 07/24/13 21:00:00, Duration: 30 day, Stop date: 08/23/13 9:00:00Give with food. (Same As: Coreg) [facility] Renvela 2013-07-24 22:00:00 No Taso Mougouris 2,400 mg, 3 tab, Route: PO, Drug form: TAB, TID-Meals, Dosing Weight 90.909, kg, Start date: 07/24/13 17:00:00, Duration: 30 day, Stop date: 08/23/13 12:00:00Same as: Renvela [facility] ropinirole 2013-07-24 22:00:00 No Taso Mougouris 0.25 mg, 1 tab, Route: PO, Drug form: TAB, TID, Dosing Weight 90.909, kg, Start date: 07/24/13 17:00:00, Duration: 30 day, Stop date: 08/23/13 13:00:00(Same as: Requip) [facility] oxybutynin 2013-07-24 22:00:00 No Taso Mougouris 5 mg, 1 tab, Route: PO, Drug form: TAB, BID, Dosing Weight 90.909, kg, Start date: 07/24/13 17:00:00, Duration: 30 day, Stop date: 08/23/13 9:00:00Same as: Ditropan) [facility] insulin detemir 2013-07-24 22:00:00 No Taso Mougouris [...] room temperature Expires in days from Date [facility] tramadol 50 mg oral tablet 2013-07-24 20:01:00 No Taso Mougouris 50 mg, 1 tab, Route: PO, Drug form: TAB, Q4H, Dosing Weight 90.909, kg, PRN Pain Score 4-6, Start date: 07/24/13 15:01:00, Duration: 30 day, Stop date: 08/23/13 15:00:00Not to exceed 400mg/day. (Same As: Ultram) [facility] promethazine 2013-07-24 20:01:00 No Taso Mougouris 12.5 mg, 1 tab, Route: PO, Drug form: TAB, Q4H, Dosing Weight 90.909, kg, PRN as needed for nausea/vomiting, Start date: 07/24/13 15:01:00, Duration: 30 day, Stop date: 08/23/13 15:00:00(Same as: Phenergan) [facility] acetamin[facility]-hydrocodone 325 mg-10 mg/15 mL oral solution [...] 3 ml, Higgins bstitution Allowed, [facility] Novolog Mix 70/30 PenFill subcutaneous suspension 18:23:35 Yes Taso Mougouris 26 unit, SUB-Q, Lunch, 3 ml, Sub stitution Allowed, [facility] [place] Novolog Mix 70/30 PenFill subcutaneous suspension 18:23:19 Yes Taso Mougouris 30 unit, SUB-Q, Breakfast, 3 ml, Substitution Allowed, SUSP Brennon Camarena Levemir FlexPen 100 units/mL subcutaneous solution 2013-06 [...] PRN, 60 tab, Pain, Substitution Allowed, TAB [facility] promethazine 12.5 mg oral tablet 2013-07-24 18:21:57 No Taso Mougouris 12.5 mg, 1 tab, PO, Q4H, PRN, 60 tab, Na usea & Vomiting, Substitution Allowed, TAB [facility] ropinirole 0.25 mg oral tablet 2013-07-24 18:15:09 Yes T aso Mougouris 0.25 mg, 1 tab, PO, TID, 90 tab, Substitution Allowed, TAB [facility] oxybutynin 5 mg oral tablet 2013-07-24 18:14:51 Yes Taso Mougouris 5 mg, 1 tab, PO, BID, 30 tab, Substitution Allowed, TAB [facility] docusate 2013-07-24 17:06:00 No Nadim B Jain 100 mg, 1 cap, Route: PO, Drug form: CAP, BID, Dosing Weight 104.545, kg, PRN Constipation, Start date: 07/24/13 12:06:00, Duration: 30 day, Stop date: 08/23/13 12:05:00(Same as: Colace) (Do Not Crush) [facility] ondansetron 2013-07-24 17:06:00 No Nadim B Jain 4 mg, 2 mL, Route: IVP, Drug form: INJ, Q8H, Dosing Weight 104.545, kg, PRN Nausea & Vomiting, Start date: 07/24/13 12:06:00, Duration: 30 day, Stop date: 08/23/13 12:05:00(Same as: Zofran) [facility] nn Reglan 2013-07-24 17:00:00 No Ramdas Nell Joseph 5 mg, 1 mL, Route: IV, Drug form: INJ, Q6H, Dosing Weight 104.545, kg, Start date: 07/24/13 12:00:00, Duration: 30 day, Stop date: 08/23/13 6:00:00(Same as: Reglan) [facility] NS 1,000 mL 2013-07-24 16:25:00 No Ramdas Nell Joseph 1,000 mL, Rate: 40 ml/hr, Infuse over: 25 hr, Route: IV, Dosing Weight 104.545 kg, Total Volume: 1,000, Start date: 07/24/13 11:25:00, Duration: 30 day, Stop date: 08/23/13 11:24:00 [facility] ondansetron 2013-07-24 15:21:00 No Nadim B Jain 4 mg, Route: IVP, Drug form: INJ, ONCE, Dosing Weight 104.545, kg, Priority: STAT, Start date: 07/24/13 10:21:00, Stop date: 07/24/13 10:21:00 [facility] potassium chloride 20 mEq oral tablet, extended release 2013-07-24 13:26:00 No Nadim B Jain 20 mEq, 1 tab, Route: PO, Drug form: ERTAB, ONCE, Dosing Weight 104.545, kg, Priority: STAT, Start date: 07/24/13 8:26:00, Stop date: 07/24/13 8:26:00(Same as: K-Dur 20) "Do Not Crush" With food and full glass of water [facility] Saline Flush 0.9% 2013-07-24 11:57:00 No Nadim B Jain 5 mL, Route: IVP, Drug Form: INJ, Dosing Weight 104.545, kg, PRN, PRN Line Flush, Start date: 07/24/13 6:57:00, Duration: 24 hr, Stop date: 07/25/13 6:56:00Same as: BD Posiflush Sterile [facility] ondansetron 2013-07-24 11:57:00 No Nadim B Jain 4 mg, 2 mL, Route: IVP, Drug form: INJ, ONCE, Dosing Weight 104.545, kg, Priority: STAT, Start date: 07/24/13 6:57:00, Stop date: 07/24/13 6:57:00(Same as: Zofran) [facility] morphine Sulfate 2013-07-24 11:57:00 No Nadim B Jain 4 mg, Route: IVP, ONCE, Dosing Weight 104.545, kg, Priority: STAT, Start date: 07/24/13 6:57:00, Stop date: 07/24/13 6:57:00 Mem orial [place] docusate sodium 150 mg/15 mL oral liquid 2013-07-03 20:58: 10 Yes Nilda Coronado 100 mg, 10 ml, P O, Daily, 240 ml, Substitution Allowed, LIQ Brennon [place] ondansetron 4 mg oral disintegrating strip 2013-07-03 20:5 6:28 Yes Nilda Coronado 4 mg, 1 ea, PO, Q4H, 30 strip, Subs titution Allowed Brennon [place] docusate sodium 100 mg oral capsule 2013-07-03 17:53:17 No Nilda Coronado 100 mg, 1 cap, PO, BID, 30 cap, Substitu tion Allowed Brennon Camarena acetaminophen-hydrocodone 325 mg-10 mg/15 mL oral solution [...] or times, Stop date: 07/01/13 13:09:00 momo Camarena acetaminophen-hydrocodone 300 mg-10 mg/15 mL oral liquid 2013-07-01 14:02:00 No Nilda Coronado 1 5 mL, Route: PO, Drug Form: SOLN, Dosing Weight 100.455, kg, Q6H, PRN Pain, Start date: 07/01/13 9:02:00, Duration: 30 day, Stop date: 07/31/13 9:01:00 Memoria bret Camarena Zofran 2013-06-30 15:59:00 No Deanna Lima 4 mg, 2 mL, Route: IV, Drug form: INJ, Q6H, Dosing Weight 100.455, kg, PRN Nausea, Start date: 06/30/13 10:59:00, Stop date: 07/30/13 10:58:00 Brennon Camarena Dilaudid 2013-06-30 11:23:00 No Nilda Coronado 0.2 mg, 0.1 mL, Route: IV, Drug form: INJ, Q6H, Dosing Weight 100.455, kg, PRN Pain, Start date: 06/30/13 6:23:00, Stop date: 07/30/13 6:22:00 [facility] Irvinryl 2013-06-30 08:28:00 No Rigo Laxamana Sagun 25 mg, 0.5 mL, Route: IVP, Drug form: INJ, ONCE, Dosing Weight 100.455, kg, PRN Itching, Start date: 06/30/13 3:28:00 [facility] bisacodyl 2013-06-29 15:14:00 No Nilda Paredes n 10 mg, 1 supp, Route: WA, Drug form: SUPP, Daily, Dosing Weight 100.455, kg, PRN Constipation, Start date: 06/29/13 10:14:00, Duration: 30 day, Stop date: 07/29/13 10:13:00 [facility] ondansetron 2013-06-29 13:00:00 No Edinson Lambert k 8 mg, 4 mL, Route: IVP, Drug form: INJ, Q4H, Dosing Weight 100.455, kg, PRN Nausea & Vomiting, Start date: 06/29/13 8:00:00, Duration: 2 doses or times, Stop date: Limited # of times [facility] Zofran 2013-06-29 08:41:00 No Rigo Laxamana Sagun 4 mg, Route: IVP, Drug form: INJ, ONCE, Dosing Weight 100.455, kg, Start date: 06/29/13 3:41:00, Stop date: 06/29/13 3:41:00 [facility] acetaminophen-codeine 300 mg-30 mg oral tablet 2013-06-27 12:11:00 No Nilda Coronado 15 mL, R oute: PO, Drug Form: LIQ, Dosing Weight 100.455, kg, Q4H, Start date: 06/27/13 7:11:00, Stop date: 07/27/13 8:00:00 [facility] Benry 2013-06-26 05:31:00 No Rigo Laxamana Sagun 25 mg, 0.5 mL, Route: IVP, Drug form: INJ, ONCE, Dosing Weight 100.455, kg, PRN Itching, Start date: 06/26/13 0:31:00 [facility] Dilaudid 2013-06-25 15:22:00 No Nilda Coronado 0.3 mg, 0.15 mL, Route: IVP, Drug form: INJ, ONCE, Dosing Weight 100.455, kg, Start date: 06/25/13 10:22:00, Stop date: 06/25/13 10:22:00 [facility] Fosrenol 2013-06-24 22:00:00 No Yaritza Soriano 1,000 mg, Route: PO, TID, Dosing Weight 100.455, kg, Start date: 06/24/13 17:00:00, Duration: 30 day, Stop date: 07/24/13 13:00:00 [facility] Renvela 2013-06-24 22:00:00 No Yaritza Soriano 2.4 gm, 1 pkt, Route: PO, Drug form: PDR/REC, TID-Meals, Start date: 06/24/13 17:00:00, Duration: 30 day, Stop date: 07/24/13 12:00:00 [facility] Zofran 2013-06-24 17:54:00 No Kimberley Tolbert 4 mg, 2 mL, Route: IVP, Drug form: INJ, ONCE, Dosing Weight 100.455, kg, Start date: 06/24/13 12:54:00, Stop date: 06/24/13 12:54:00 [facility] ondansetron 2013-06-24 17:54:00 No Nilda lowe 4 mg, 2 mL, Route: IVP, Drug form: INJ, Q12H, Dosing Weight 100.455, kg, PRN Nausea & Vomiting, Start date: 06/24/13 12:54:00, Duration: 30 day, Stop date: 07/24/13 12:53:00 [facility] 2013-06-24 17:00:00 No Opal [place] 1,000 mg, 100 mL, Route: IV, Drug form: INJ, Q6H, Dosing Weight 100.455, kg, Start date: 06/24/13 12:00:00, Duration: 1 day, Stop date: 06/25/13 6:00:00 [facility] amLODipine 2013-06-24 14:00:00 No Peri Penn 5 mg, 1 tab, Route: PO, Drug form: TAB, A-Kv-Rr-Sa-Higgins, Dosing Weight 100.455, kg, Start date: 06/24/13 9:00:00, Duration: 30 day, Stop date: 07/23/13 9:00:00 [facility] Dilaudid 2013-06-24 13:24:00 No Edinson Stahl [place] 0.5 mg, 0.25 mL, Route: IV, Drug form: INJ, Q4H, Dosing Weight 100.455, kg, PRN Pain, Start date: 06/24/13 8:24:00, Stop date: 07/24/13 8:23:00 [facility] NS 250 mL 2013-06-24 01:43:00 No Yaritza [facility] h 250 mL, Rate: 250 ml/hr, Infuse over: 1 hr, Route: IV, Dosing Weight 100.455 kg, Total Volume: 250, Start date: 06/23/13 20:43:00, Duration: 30 day, Stop date: 07/23/13 20:42:00, DosingNeonatal Dosing [facility] Dilaudid 2013-06-23 23:14:00 No Lenore Bernadette Canalichio 0.2 mg, 0.1 mL, Route: IV, Drug form: INJ, ONCE, Dosing Weight 100.455, kg, Start date: 06/23/13 18:14:00, Stop date: 06/23/13 18:14:00 [facility] carvedilol 2013-06-23 15:00:00 No Lenore Bernadette Canalichio 50 mg, 2 tab, Route: PO, Drug form: TAB, Daily, Dosing Weight 100.455, kg, Start date: 06/23/13 10:00:00, Duration: 30 day, Stop date: 07/23/13 9:00:00 [facility] Epogen (ESRD) 2013-06-23 14:00:00 No Deanna Lima 5,000 unit, Route: IV, Q--W-F, Dosing Weight 100.455, kg, Start date: 06/23/13 9:00:00, Duration: 30 day, Stop date: 07/21/13 9:00:00 [facility] heparin 2013-06-23 13:00:00 No Yaritza Soriano 5,000 unit, 1 mL, Route: SUB-Q, Drug form: INJ, Q8H, Start date: 06/23/13 8:00:00, Duration: 30 day, Stop date: 07/23/13 0:00:00 Angelito telma [place] Lovenox 2013-06-23 12:00:00 No Yaritza Soriano 30 mg, Route: SUB-Q, Drug form: INJ, [id number], Dosing Weight 100.455, kg, For CrCl <30mL/min, Start date: 06/23/13 7:00:00, Duration: 30 day, Stop date: 07/22/13 7:00:00 [facility] Sodium Chloride 0.45% IV 1,000 mL 2013-06-23 01:17:00 No Lenore Fleming Canalichio 1,000 mL, Rate: 50 ml/hr, Infuse over: 20 hr, Route: IV, Dosing Weight 100.455 kg, Total Volume: 1,000, Start date: 06/22/13 20:17:00, Duration: 30 day, Stop date: 07/22/13 20:16:00 [facility] cefoxitin (SCIP) 2013-06-22 23:00:00 No Yaritza Soriano 2 gm, Route: IVPB, Drug form: INJ, Q6H, Dosing Weight 100.455, kg, Start date: 06/22/13 18:00:00, Duration: 1 doses or times, Stop date: 06/22/13 18:00:00 [facility] Renvela 2013-06-22 22:00:00 No Yaritza Soriano 2,400 mg, 3 tab, Route: PO, Drug form: TAB, TID-Meals, Dosing Weight 100.455, kg, Start date: 06/22/13 17:00:00, Duration: 30 day, Stop date: 07/22/13 12:00:00 [facility] Protonix 2013-06-22 21:30:00 No Kulvinder S Isamar 40 mg, Route: IVP, Drug form: INJ, Before Dinner, Dosing Weight 100.455, kg, Start date: 06/22/13 16:30:00, Duration: 30 day, Stop date: 07/21/13 16:30:00 [facility] Dilaudid 2013-06-22 21:14:00 No Lenore Hernandezichio 0.2 mg, 0.1 mL, Route: IV, Drug form: INJ, Q2H, Dosing Weight 100.455, kg, PRN Breakthrough Pain, Start date: 06/22/13 16:14:00, Duration: 30 day, Stop date: 07/22/13 16:13:00 [facility] heparin 2013-06-22 21:00:00 No Oriraheel Colten Soriano 5,000 unit, 1 mL, Route: SUB-Q, Drug form: INJ, Q8H, Start date: 06/22/13 16:00:00, Duration: 30 day, Stop date: 07/22/13 8:00:00 Angelito hollis [place] ondansetron 2013-06-22 18:15:00 No Su Brian Caballero 4 mg, 2 mL, Route: IVP, Drug form: INJ, ONCE, Dosing Weight 100.455, kg, PRN Nausea & Vomiting, Start date: 06/22/13 13:15:00 [facility] hydromorphone 2013-06-22 18:15:00 No Su Brian Caballero 0.5 mg, 0.25 mL, Route: IVP, Drug form: INJ, Q5Min, Dosing Weight 100.455, kg, PRN Pain Score 7-10, Start date: 06/22/13 13:15:00, Duration: 5 doses or times, Stop date: 06/24/13 0:00:00 [facility] labetalol 2013-06-22 18:15:00 No Su Brian Caballero 5 mg, 1 mL, Route: IVP, Drug form: INJ, Q5Min, Dosing Weight 100.455, kg, PRN Elevated BP, Start date: 06/22/13 13:15:00, Duration: 5 doses or times, Stop date: 06/24/13 0:00:00 [facility] flumazenil 2013-06-22 18:15:00 No Su Brian Caballero 0.2 mg, 2 mL, Route: IVP, Drug form: INJ, PRN, Dosing Weight 100.455, kg, PRN Benzodiazepine Reversal, Initial dose, Start date: 06/22/13 13:15:00, Duration: 30 day, Stop date: 07/22/13 13:14:00 [facility] naloxone 2013-06-22 18:15:00 No Su Brian Caballero 0.04 mg, 0.1 mL, Route: IVP, Drug form: INJ, Q2MIN, Dosing Weight 100.455, kg, PRN Narcotic Reversal, Start date: 06/22/13 13:15:00, Duration: 8 doses or times, Stop date: 06/24/13 0:00:00 [facility] insulin aspart 2013-06-22 17:46:00 No Peri Penn 2 unit, 0.02 mL, Route: SUB-Q, Drug form: SOLN, TID-Before Meals, Dosing Weight 100.455, kg, PRN Blood Glucose Results, Start date: 06/22/13 12:46:00, Duration: 30 day, Stop date: 07/22/13 12:45:00 [facility] n Saline Flush 0.9% 2013-06-22 17:46:00 No Peri Hackett Ba jwdai 5 ml, Route: IVP, Drug Form: INJ, Dosing Weight 100.455, kg, PRN, PRN Line Flush, Start date: 06/22/13 12:46:00, Duration: 30 day, Stop date: 07/22/13 12:45:00 [facility] Sodium Chloride 0.45% IV 1,000 mL 2013-06-22 17:46:00 No Deanna Lima 1,000 mL, Rate: 85 ml/hr, Infuse over: 11.8 hr, Route: IV, Dosing Weight 100.455 kg, Total Volume: 1,000, Start date: 06/22/13 12:46:00, Duration: 30 day, Stop date: 07/22/13 12:45:00 [facility] ondansetron 2013-06-22 17:46:00 No Kimberley Ha-Davion C hang 4 mg, 2 mL, Route: IVP, Drug form: INJ, Q12H, Dosing Weight 100.455, kg, PRN Nausea & Vomiting, Start date: 06/22/13 12:46:00, Duration: 30 day, Stop date: 07/22/13 12:45:00 [facility] morphine Sulfate 2013-06-22 17:46:00 No Lenore Florentino lichio 2 mg, 1 mL, Route: IVP, Drug form: INJ, Q2H, Dosing Weight 100.455, kg, PRN Pain Score 1-5, Start date: 06/22/13 12:46:00, Duration: 30 day, Stop date: 07/22/13 12:45:00 [facility] acetaminophen-hydrocodone 300 mg-10 mg/15 mL oral liquid 2013-06-22 17:46:00 No Edinson Goel 15 mL, Route: PO, Drug Form: SOLN, Dosing Weight 100.455, kg, Q4H, PRN Pain Score 1-3, Start date: 06/22/13 12:46:00, Duration: 30 day, Stop date: 07/22/13 12:45:00 [facility] [place]rial [place] bupivacaine liposome 2013-06-22 14:05:00 No Peri Hackett Isamar 20 mL, Route: InFILtration(local), Drug Form: INJ, ONCE, Start date: 06/22/13 9:05:00, Stop date: 06/22/13 9:05:00 [facility] cefoxitin 2013-06-22 13:59:00 No Peri Penn 2 gm, Route: IVPB, PRE OP, Dosing Weight 100.455, kg, Start date: 06/22/13 8:59:00 [facility] isometheptene mucate 2013-06-22 12:19:03 No Substitution Allowed [facility] tramadol 2013-06-22 12:18:50 No Substitutio n Allowed [facility] topiramate 2013-06-22 12:18:39 No Substitut ion Allowed [facility] cyclobenzaprine 2013-06-22 12:18:29 No Subs titution Allowed [facility] pantoprazole 2013-06-22 12:13:25 Yes 40 mg daily PO, Substitution Allowed [facility] ibuprofen 400 mg oral tablet 2013-01-12 19:18:00 No Leatha Caicedo 2 tab, Route: PO , Drug form: TAB, ONCE, Dosing Weight 100, kg, Priority: STAT, Start date: 01/12/13 14:18:00, Stop date: 01/12/13 14:18:00 [facility] ondansetron 2013-01-12 16:58:00 No Leatha Miranda 4 mg, Route: IVP, ONCE, Dosing Weight 100, kg, Priority: STAT, Start date: 01/12/13 11:58:00, Stop date: 01/12/13 11:58:00 M [facility] aspirin 325 mg tablet 2013-01-12 16:58:00 No Essie Caicedo 325 mg, Route: PO, Drug form: TAB, ONCE, Dosing Weight 100, kg, Priority: STAT, Start date: 01/12/13 11:58:00, Stop date: 01/12/13 11:58:00 [facility] ondansetron 2013-01-06 19:34:00 No Jonathan R Ovi 4 mg, 2 mL, Route: IVP, Drug form: INJ, ONCE, Dosing Weight 47.727, kg, Priority: STAT, Start date: 01/06/13 14:34:00, Stop date: 01/06/13 14:34:00 [facility] hydromorphone 2013-01-06 19:33:00 No Jonathan R Ovi 1 mg, 1 mL, Route: IVP, Drug form: SOLN, ONCE, Dosing Weight 47.727, kg, PRN as needed for pain, Priority: STAT, Start date: 01/06/13 14:33:00 [facility] baclofen 2012-12-28 21:06:00 No Ramdaroxann Ballda Joseph 5 mg, 0.5 tab, Route: PO, Drug form: TAB, ONCE, Dosing Weight 106.6, kg, Start date: 12/28/12 15:06:00, Stop date: 12/28/12 15:06:00 [facility] MiraLax 2012-12-28 21:05:00 No Ramdaroxann Ballda Rajesh 17 gm, 1 pkt, Route: PO, Drug form: PWDR, ONCE, Dosing Weight 106.6, kg, Start date: 12/28/12 15:05:00, Duration: 1 doses or times, Stop date: 12/28/12 15:05:00 [facility] ondansetron 4 mg oral tablet 2012-12-28 17:08:09 Yes Faraz Cerna 4 mg, 1 tab, PO, Q8H, PRN, 20 tab, Nausea, Substitution Allowed, TAB [facility] Zofran 2012-12-28 17:04:00 No Faraz Eryn 4 mg, 1 tab, Route: PO, Drug form: TAB, Q8H, Dosing Weight 106.6, kg, PRN Nausea, Start date: 12/28/12 11:04:00, Duration: 30 day, Stop date: 01/27/13 11:03:00 [facility] Epogen (ESRD) 2012-12-28 15:00:00 No Enoch Joseph 10,000 unit, 1 mL, Route: SUB-Q, Drug form: INJ, Q-M-W-F, Dosing Weight 102.727, kg, Start date: 12/28/12 9:00:00, Duration: 30 day, Stop date: 01/25/13 9:00:00 [facility] Protonix 2012-12-28 15:00:00 No Michelle Anderson Onochie 40 mg, 1 tab, Route: PO, Drug form: ECTAB, Daily, Start date: 12/28/12 9:00:00, Duration: 30 day, Stop date: 01/26/13 9:00:00 [facility] Sodium Chloride 0.9% IV 2012-12-27 21:00:00 No Enoch Joseph IV, 30 ml/hr, ONCALL, Start date: 12/27/12 15:00:00, Duration: 1, 250 ml [facility] PhosLo Gelcap 2012-12-27 19:00:00 No Enoch Joseph 2,001 mg, 3 cap, Route: PO, Drug form: CAP, TID, Dosing Weight 106.6, kg, Start date: 12/27/12 13:00:00, Duration: 30 day, Stop date: 01/26/13 9:00:00 [facility] amLODipine 2012-12-27 15:00:00 No Faraz Cerna 5 mg, 1 tab, Route: PO, Drug form: TAB, X-Ij-Kt-Sa-Higgins, Dosing Weight 102.727, kg, Start date: 12/27/12 9:00:00, Duration: 30 day, Stop date: 01/24/13 9:00:00 [facility] calcium carbonate 2012-12-26 23:00:00 No Ramdas Nell K umar 1,000 mg, 2 tab, Route: CHEW, Drug form: TAB, TID, Dosing Weight 102.727, kg, Start date: 12/26/12 17:00:00, Duration: 30 day, Stop date: 01/25/13 13:00:00 [facility] albuterol 0.083% inhalation solution 2012-12-26 20:38:00 No Ramdas Nell Rajesh 5 mg, Route: NEB , ONCE, Dosing Weight 102.727, kg, Start date: 12/26/12 14:38:00, Stop date: 12/26/12 14:38:00 [facility] insulin aspart 2012-12-26 20:36:00 No Ramdas Nell Kuma r 10 unit, Route: IVP, ONCE, Dosing Weight 102.727, kg, Start date: 12/26/12 14:36:00, Stop date: 12/26/12 14:36:00 [facility] n d50 syringe 2012-12-26 20:35:00 No Ramdas Nlel Joseph 25 gm, 50 mL, Route: IVP, Drug Form: INJ, Dosing Weight 102.727, kg, ONCE, Start date: 12/26/12 14:35:00, Stop date: 12/26/12 14:35:00 [facility] Kayexalate 2012-12-26 20:33:00 No Ramdas Nell Joseph 30 gm, Route: PO, Drug form: SUSP, ONCE, Dosing Weight 102.727, kg, Start date: 12/26/12 14:33:00, Stop date: 12/26/12 14:33:00 [facility] sevelamer 2012-12-26 19:00:00 No Ramdas Nell Joseph 2.4 gm, 3 tab, Route: PO, Drug form: TAB, TID, Dosing Weight 102.727, kg, Start date: 12/26/12 13:00:00, Duration: 30 day, Stop date: 01/25/13 9:00:00 [facility] albuterol 0.083% inhalation solution 2012-12-26 15:49:00 No Enoch Joseph 4.98 mg, 6 mL, R oute: NEB, Drug form: SOLN, ONCE, Dosing Weight 102.727, kg, Start date: 12/26/12 9:49:00, Stop date: 12/26/12 9:49:00 [facility] Kayexalate 2012-12-26 15:46:00 No Enoch Joseph 30 gm, Route: PO, Drug form: SUSP, ONCE, Dosing Weight 102.727, kg, Start date: 12/26/12 9:46:00, Stop date: 12/26/12 9:46:00 [facility] docusate 2012-12-26 15:00:00 No Michelle N Onochie 100 mg, 1 cap, Route: PO, Drug form: CAP, Q12H, Dosing Weight 102.727, kg, Start date: 12/26/12 9:00:00, Duration: 30 day, Stop date: 01/24/13 21:00:00 [facility] Saline Flush 0.9% 2012-12-26 15:00:00 No Michelle N Onoch ie 5 ml, Route: IVP, Drug Form: INJ, Dosing Weight 102.727, kg, Q12H, Start date: 12/26/12 9:00:00, Duration: 30 day, Stop date: 01/24/13 21:00:00 [facility] pantoprazole 2012-12-26 15:00:00 No Michelle N Onochie 40 mg, Route: IVP, Drug form: INJ, Daily, Dosing Weight 102.727, kg, Priority: Routine, Start date: 12/26/12 9:00:00, Duration: 30 day, Stop date: 01/24/13 9:00:00 [facility] Dextrose 50% Syringe 2012-12-26 13:13:00 No Michelle N On ochie 12.5 gm, 25 mL, Route: IVP, Drug Form: INJ, Dosing Weight 102.727, kg, PRN, PRN Blood Glucose Results, Start date: 12/26/12 7:13:00, Duration: 30 day, Stop date: 01/25/13 8:12:00 [facility] glucagon 2012-12-26 13:13:00 No Michelle N Onochie 1 mg, Route: IM, Drug form: PDR/INJ, PRN, Dosing Weight 102.727, kg, PRN Blood Glucose Results, Start date: 12/26/12 7:13:00, Duration: 30 day, Stop date: 01/25/13 8:12:00 [facility] insulin aspart 2012-12-26 13:13:00 No Michelle N Onochie 4 unit, 0.04 mL, Route: SUB-Q, Drug form: SOLN, TID-Before Meals, Dosing Weight 102.727, kg, PRN Blood Glucose Results, Start date: 12/26/12 7:13:00, Duration: 30 day, Stop date: 01/25/13 7:12:00 [facility] DuoNeb inhalation solution 2012-12-26 12:21:00 No Nnenn a N Onochie 3 ml, Route: INHALATION, Drug Form: SOLN, Dosing Weight 102.727, kg, PRN, PRN Respiratory Protocol, Start date: 12/26/12 6:21:00, Duration: 30 day, Stop date: 01/25/13 7:20:00 [facility] chlorhexidine topical 4% soap 2012-12-26 10:00:00 No Nn ele N Onochie 1 appl, Route: BATHE, Q24H, Start date: 12/26/12 4:00:00, Duration: 30 day, Stop date: 01/24/13 4:00:00 [facility] glucagon 2012-12-26 09:55:00 No Michelle N Onochie 1 mg, Route: IM, Drug form: PDR/INJ, PRN, Dosing Weight 102.727, kg, PRN Blood Glucose Results, Start date: 12/26/12 3:55:00, Duration: 30 day, Stop date: 01/25/13 4:54:00 [facility] Dextrose 50% Syringe 2012-12-26 09:55:00 No Michelle N On ochie 25 gm, 50 mL, Route: IVP, Drug Form: INJ, Dosing Weight 102.727, kg, PRN, PRN Blood Glucose Results, Start date: 12/26/12 3:55:00, Duration: 30 day, Stop date: 01/25/13 4:54:00 [facility] insulin aspart 2012-12-26 09:55:00 No Michelle N Onochie 4 unit, 0.04 mL, Route: SUB-Q, Drug form: SOLN, Bedtime, Dosing Weight 102.727, kg, PRN Blood Glucose Results, Start date: 12/26/12 3:55:00, Duration: 30 day, Stop date: 01/25/13 3:54:00 [facility] morphine Sulfate 2012-12-26 09:52:00 No Michelle N Onochi e 4 mg, 2 mL, Route: IVP, Drug form: INJ, Q3H, Dosing Weight 105.001, kg, PRN Pain Score 7-10, Start date: 12/26/12 3:52:00, Duration: 30 day, Stop date: 01/25/13 3:51:00 [facility] ondansetron 2012-12-26 09:52:00 No Michelle N Onochie 4 mg, 2 mL, Route: IVP, Drug form: INJ, Q6H, Dosing Weight 102.727, kg, PRN Nausea & Vomiting, Start date: 12/26/12 3:52:00, Duration: 30 day, Stop date: 01/25/13 3:51:00 [facility] ondansetron 2012-12-26 09:51:00 No Michelle N Onochie 4 mg, 2 mL, Route: IVP, Drug form: INJ, Q4H, Dosing Weight 102.727, kg, PRN Nausea & Vomiting, Start date: 12/26/12 3:51:00, Duration: 30 day, Stop date: 01/25/13 3:50:00 [facility] albuterol-ipratropium 2.5-0.5 mg inhalation solution 12-26 09:51:00 No Michelle N Onochie 3 ml, Route: NE B, Drug Form: SOLN, Dosing Weight 102.727, kg, PRN, PRN Respiratory Protocol, Start date: 12/26/12 3:51:00, Duration: 30 day, Stop date: 01/25/13 4:50:00 [facility] [place] Saline Flush 0.9% 2012-12-26 09:51:00 No Michelle Anderson Onoch ie 5 ml, Route: IVP, Drug Form: INJ, Dosing Weight 102.727, kg, PRN, PRN Line Flush, Start date: 12/26/12 3:51:00, Duration: 30 day, Stop date: 01/25/13 4:50:00 [facility] morphine Sulfate 2012-12-26 09:51:00 No Michelle Anderson Onpatriciai e 2 mg, 1 mL, Route: IV, Drug form: INJ, Q2H, Dosing Weight 102.727, kg, PRN as needed for pain, Start date: 12/26/12 3:51:00, Duration: 30 day, Stop date: 01/25/13 3:50:00 [facility] acetaminophen 2012-12-26 09:51:00 No Michelle Anderson Onochie 650 mg, 2 tab, Route: PO, Drug form: TAB, Q6H, Dosing Weight 102.727, kg, PRN Pain, Start date: 12/26/12 3:51:00, Duration: 30 day, Stop date: 01/25/13 3:50:00 [facility] albuterol 0.083% inhalation solution 2012-12-26 07:12:00 No Enoch Joseph 4.98 mg, Route: NEB, Drug form: SOLN, ONCE, Dosing Weight 102.727, kg, Start date: 12/26/12 1:12:00, Stop date: 12/26/12 1:12:00 [facility] albuterol 0.083% inhalation solution 2012-12-26 07:00:00 No Jonathan Lauren 20 mg, Route: NE B, Continuous, Dosing Weight 102.727, kg, Start date: 12/26/12 1:00:00 [facility] calcium gluconate 2012-12-26 06:33:00 No Jonathan ramirez 1,000 mg, Route: IVP, ONCE, Dosing Weight 102.727, kg, Priority: STAT, Start date: 12/26/12 0:33:00, Stop date: 12/26/12 0:33:00 [facility] sodium bicarbonate 2012-12-26 06:33:00 No Jonathan Lauren 50 mEq, Route: IVP, ONCE, Dosing Weight 102.727, kg, Priority: STAT, Start date: 12/26/12 0:33:00, Stop date: 12/26/12 0:33:00 [facility] sodium polystyrene sulfonate 2012-12-26 06:33:00 No Jonathan Lauren 15 gm, Route: PO, Drug form: SUSP, ONCE, Dosing Weight 102.727, kg, Priority: STAT, Start date: 12/26/12 0:33:00, Stop date: 12/26/12 0:33:00 [facility] Insulin regular 2012-12-26 06:33:00 No Jonathan kendrick 10 unit, Route: IVP, ONCE, Dosing Weight 102.727, kg, Priority: STAT, Start date: 12/26/12 0:33:00, Stop date: 12/26/12 0:33:00 [facility] Dextrose 50% Syringe 2012-12-26 06:33:00 No Jonathan Lauren 25 gm, Route: IVP, Dosing Weight 102.727, kg, ONCE, STAT, Start date: 12/26/12 0:33:00, Stop date: 12/26/12 0:33:00 [facility] Saline Flush 0.9% 2012-12-26 06:33:00 No Joseluis Jamil ok 5 mL, Route: IVP, Drug Form: INJ, Dosing Weight 102.727, kg, PRN, PRN Line Flush, Start date: 12/26/12 0:33:00, Duration: 30 day, Stop date: 01/25/13 1:32:00 [facility] Ativan 2012-12-26 05:59:00 No Jonathan Lauren 1 mg, Route: IVP, ONCE, Dosing Weight 102.727, kg, Priority: STAT, Start date: 12/25/12 23:59:00, Stop date: 12/25/12 23:59:00 [facility] Saline Flush 0.9% 2012-12-26 05:59:00 No Joseluis Van M ok 5 mL, Route: IVP, Drug Form: INJ, Dosing Weight 102.727, kg, Q8H, PRN Line Flush, Start date: 12/25/12 23:59:00, Duration: 30 day, Stop date: 01/24/13 23:58:00, Administer at least once every 8 hoursAdminister at least once every 8 hours [facility] 2012-12-26 05:59:00 No Jonathan Loja Leonidas 324 mg, Route: PO, ONCE, Dosing Weight 102.727, kg, Priority: STAT, Start date: 12/25/12 23:59:00, Stop date: 12/25/12 23:59:00 [facility] jero morphine Sulfate 2012-12-05 14:10:00 No Nadim B Jain 4 mg, 2 mL, Route: IVP, Drug form: INJ, ONCE, Dosing Weight 105, kg, Priority: STAT, Start date: 12/05/12 8:10:00, Stop date: 12/05/12 8:10:00 [facility] Copake 5/325 oral tablet 2012-12-02 20:30:40 Yes Joseluis Enr ique Lisa 1-2 tab, PO, Q6H, PRN, 30 tab, Pain, Substitution Allowed, Maintenance [facility] Lyrica 75 mg oral capsule 2012-12-02 20:29:36 Yes Joseluis E nrique Lisa 75 mg, 1 cap, PO, TID, 90 cap, Substitution Allowed, CAP [facility] Lovenox 2012-12-02 04:00:00 No Jean-Paul Ramirez 30 mg, 0.3 mL, Route: SUB-Q, Drug form: INJ, Q24H, Dosing Weight 105.909, kg, Priority: Within 8 hours, Start date: 12/01/12 22:00:00, Duration: 30 day, Stop date: 12/30/12 22:00:00 [facility] lidocaine 1% 2012-12-01 21:50:00 No Jade [place] 10 mL, Route: INTRADERM, Drug Form: INJ, Dosing Weight 105.909, kg, ONCE, Start date: 12/01/12 15:50:00, Stop date: 12/01/12 15:50:00 [facility] Kenalog-40 2012-12-01 21:50:00 No Jade [place] 80 mg, 2 mL, Route: intra-ARTICULAR, Drug form: INJ, ONCE, Dosing Weight 105.909, kg, Start date: 12/01/12 15:50:00, Stop date: 12/01/12 15:50:00 [facility] Dilaudid 2012-12-01 20:38:00 No Joseluis Van Lisa 1 mg, 1 mL, Route: IV, Drug form: SOLN, Q3H, Dosing Weight 105.909, kg, PRN Pain, Start date: 12/01/12 14:38:00, Duration: 30 day, Stop date: 12/31/12 14:37:00 [facility] D5W 1/2NS + KCL 20mEq/L 1000ml (Premix) 1000 mL 2012-12-01 16:11:00 No Jean-Paul Ramirez 1,000 mL, R ate: 100 ml/hr, Infuse over: 10 hr, Route: IV, Dosing Weight 105.909 kg, Total Volume: 1,000, Start date: 12/01/12 10:11:00, Duration: 30 day, Stop date: 12/31/12 10:10:00 [facility] NS + KCL 20mEq/L 1000ml (Premix) 1000 mL 2012-12-01 16:11: 00 No Jean-Paul Ramirez 1,000 mL, Rate: 100 ml/hr, Infuse over: 10 hr, Route: IV, Dosing Weight 105.909 kg, Total Volume: 1,000, Start date: 12/01/12 10:11:00, Duration: 30 day, Stop date: 12/31/12 10:10:00 [facility] 1/2 NS 1,000 mL 2012-12-01 16:11:00 No Joseluis Van Lisa 1,000 mL, Rate: 100 ml/hr, Infuse over: 10 hr, Route: IV, kg, Total Volume: 1,000, Start date: 12/01/12 10:11:00, Duration: 30 day, Stop date: 12/31/12 10:10:00 [facility] cefazolin 2012-12-01 15:53:00 No Jean-Paul Ramirez 2 gm, Route: IVPB, ONCE, Dosing Weight 105.909, kg, Start date: 12/01/12 9:53:00, Duration: 1 doses or times, Stop date: 12/01/12 9:53:00 [facility] nitroglycerin 0.4 mg sublingual tablet 2012-12-01 01:55:00 No Joseluis Van Lisa 0.4 mg, 1 tab, R oute: SL, Drug form: TAB, Q5Min, PRN Chest Pain, Start date: 11/30/12 19:55:00, Duration: 30 day, Stop date: 12/30/12 19:54:00 [facility] atropine 2012-12-01 01:55:00 No Joseluis Van Lisa 0.5 mg, 5 mL, Route: IVP, Drug form: INJ, PRN, PRN Bradycardia, Start date: 11/30/12 19:55:00, Duration: 30 day, Stop date: 12/30/12 19:54:00 [facility] Epogen (ESRD) 2012-11-30 23:00:00 No Enoch Joseph 10,000 unit, 1 mL, Route: SUB-Q, Drug form: INJ, Q-M-W-F, Dosing Weight 105.909, kg, Start date: 11/30/12 17:00:00, Duration: 30 day, Stop date: 12/28/12 17:00:00 [facility] Novolog 70/30 2012-11-30 22:30:00 No Joseluis Van Lisa 45 unit, 0.45 mL, Route: SUB-Q, Drug form: INJ, Before Dinner, Dosing Weight 102.727, kg, Start date: 11/30/12 16:30:00, Duration: 30 day, Stop date: 12/29/12 16:30:00 [facility] NovoLog Mix 70/30 FlexPen 2012-11-30 17:30:00 No Joseluis E nrique Lisa 26 unit, 0.26 mL, Route: SUB-Q, Drug form: INJ, Before Lunch, Dosing Weight 102.727, kg, Start date: 11/30/12 11:30:00, Duration: 30 day, Stop date: 12/29/12 11:30:00 [facility] morphine Sulfate 2012-11-30 16:35:00 No Joseluis Van Mo k 4 mg, 2 mL, Route: IVP, Drug form: INJ, Q3H, Dosing Weight 105.909, kg, PRN Severe Pain, Start date: 11/30/12 10:35:00, Duration: 30 day, Stop date: 12/30/12 10:34:00 [facility] Lyrica 2012-11-30 15:00:00 No Joseluis Van Lisa 75 mg, 1 cap, Route: PO, Drug form: CAP, BID, Dosing Weight 102.727, kg, Start date: 11/30/12 9:00:00, Duration: 30 day, Stop date: 12/29/12 17:00:00 [facility] ropinirole 2012-11-30 15:00:00 No Joseluis Van Lisa 0.25 mg, 1 tab, Route: PO, Drug form: TAB, TID, Dosing Weight 102.727, kg, Start date: 11/30/12 9:00:00, Duration: 30 day, Stop date: 12/29/12 17:00:00 [facility] oxybutynin 2012-11-30 15:00:00 No Joseluis Van Lisa 5 mg, 1 tab, Route: PO, Drug form: TAB, TID, Dosing Weight 102.727, kg, Start date: 11/30/12 9:00:00, Duration: 30 day, Stop date: 12/29/12 17:00:00 [facility] insulin detemir 2012-11-30 15:00:00 No Joseluis Van Lisa 16 unit, 0.16 mL, Route: SUB-Q, Drug form: INJ, QAM, Dosing Weight 102.727, kg, Start date: 11/30/12 9:00:00, Duration: 30 day, Stop date: 12/29/12 9:00:00 [facility] gabapentin 100 mg oral capsule 2012-11-30 15:00:00 No Joseluis Van Lisa 100 mg, 1 cap, Route: PO, Drug form: CAP , Daily, Dosing Weight 102.727, kg, Start date: 11/30/12 9:00:00, Duration: 30 day, Stop date: 12/29/12 9:00:00 [facility] calcium carbonate 2012-11-30 15:00:00 No Joseluis Van M ok 1,000 mg, 2 tab, Route: CHEW, Drug form: CHEWTAB, TID, Dosing Weight 102.727, kg, Start date: 11/30/12 9:00:00, Duration: 30 day, Stop date: 12/29/12 17:00:00 [facility] docusate 2012-11-30 15:00:00 No Joseluis Van Lisa 100 mg, 1 cap, Route: PO, Drug form: CAP, BID, Dosing Weight 102.727, kg, Start date: 11/30/12 9:00:00, Duration: 30 day, Stop date: 12/29/12 17:00:00 [facility] Renvela 2012-11-30 14:00:00 No Joseluis Van Lisa 2,400 mg, 3 tab, Route: PO, Drug form: TAB, TID-Meals, Dosing Weight 102.727, kg, Start date: 11/30/12 8:00:00, Duration: 30 day, Stop date: 12/29/12 17:00:00 [facility] Novolog 70/30 2012-11-30 13:30:00 No Joseluis Van Lisa 40 unit, 0.4 mL, Route: SUB-Q, Drug form: INJ, Before Breakfast, Dosing Weight 102.727, kg, Start date: 11/30/12 7:30:00, Duration: 30 day, Stop date: 12/29/12 7:30:00 [facility] simvastatin 2012-11-30 03:00:00 No Joseluis Van Lisa 20 mg, 1 tab, Route: PO, Drug form: TAB, Bedtime, Dosing Weight 102.727, kg, Start date: 11/29/12 21:00:00, Duration: 30 day, Stop date: 12/28/12 21:00:00 [facility] Levemir 2012-11-30 03:00:00 No Joseluis Van Lisa 70 unit, 0.7 mL, Route: SUB-Q, Drug form: INJ, Bedtime, Dosing Weight 102.727, kg, Start date: 11/29/12 21:00:00, Duration: 30 day, Stop date: 12/28/12 21:00:00 [facility] heparin 2012-11-30 03:00:00 No Jean-Paul Ramirez 5,000 unit, 1 mL, Route: SUB-Q, Drug form: INJ, Q12H, Dosing Weight 102.727, kg, Start date: 11/29/12 21:00:00, Duration: 30 day, Stop date: 12/29/12 9:00:00 [facility] amLODipine 2012-11-30 00:29:00 No Joseluis Van Lisa 5 mg, 1 tab, Route: PO, Drug form: TAB, I-Oe-Jr-Sa-Higgins, Dosing Weight 102.727, kg, Start date: 11/29/12 18:29:00, Duration: 30 day, Stop date: 12/29/12 9:00:00 [facility] furosemide 40 mg oral tablet 2012-11-30 00:29:00 No Ramdas Nell Joseph 40 mg, 1 tab, Route: PO, Drug form: TAB, T-Xe-Mj-Sa-Higgins, Dosing Weight 102.727, kg, Start date: 11/29/12 18:29:00, Duration: 30 day, Stop date: 12/29/12 9:00:00 [facility] carvedilol 2012-11-30 00:29:00 No Ramdas Nell Joseph 50 mg, 4 tab, Route: PO, Drug form: TAB, A-Jm-Rg-Sa-Higgins, Dosing Weight 102.727, kg, Start date: 11/29/12 18:29:00, Duration: 30 day, Stop date: 12/29/12 17:00:00 [facility] temazepam 2012-11-30 00:28:00 No Joseluis Van Lisa 15 mg, 1 cap, Route: PO, Drug form: CAP, Bedtime, Dosing Weight 102.727, kg, PRN Insomnia, Start date: 11/29/12 18:28:00, Duration: 30 day, Stop date: 12/29/12 18:27:00 [facility] ondansetron 2012-11-30 00:28:00 No Joseluis Van Lisa 4 mg, 2 mL, Route: IVP, Drug form: INJ, Q6H, Dosing Weight 102.727, kg, PRN Nausea & Vomiting, Start date: 11/29/12 18:28:00, Duration: 30 day, Stop date: 12/29/12 18:27:00 [facility] acetaminophen-hydrocodone 325 mg-5 mg oral tablet 00:28:00 No Joseluis Van Lisa 2 tab, Route: P O, Drug Form: TAB, Dosing Weight 102.727, kg, Q4H, PRN Pain Score 4-6, Start date: 11/29/12 18:28:00, Duration: 30 day, Stop date: 12/29/12 18:27:00 [facility] morphine Sulfate 2012-11-30 00:28:00 No Joseluis Van Mo k 2 mg, 1 mL, Route: IVP, Drug form: INJ, Q3H, Dosing Weight 102.727, kg, PRN Pain Score 4-6, Start date: 11/29/12 18:28:00, Duration: 30 day, Stop date: 12/29/12 18:27:00 [facility] acetaminophen 2012-11-30 00:28:00 No Joseluis Van Lisa 650 mg, 2 tab, Route: PO, Drug form: TAB, Q4H, Dosing Weight 102.727, kg, PRN Pain/Fever, Start date: 11/29/12 18:28:00, Duration: 30 day, Stop date: 12/29/12 18:27:00 [facility] Tums Ultra 1000 mg oral tablet, chewable 2012-11-29 21:10: 12 Yes Joseluis Van Lisa 1,000 mg, 1 tab, CHEW, TID, Substituti on Allowed [facility] Vitamin D 50,000 intl units oral capsule 2012-11-29 21:09:49 Yes 50,000 IntlUnit, 1 cap, PO, QSat, Substitution Allowed [facility] acetaminophen-hydrocodone 325 mg-5 mg oral tablet 2012-11-29 21:09:33 No 1 tab, PO, Q6H, PRN, as needed f or pain, Substitution Allowed, Maintenance [facility] promethazine 12.5 mg oral tablet 2012-11-29 21:09:14 Yes 12.5 mg, 1 tab, PO, Q6H, PRN, as needed for nausea/vomiting, Substitution Allowed [facility] gabapentin 100 mg oral capsule 2012-11-29 21:06:57 No Joseluis Van Lisa 100 mg, 1 cap, PO, Daily, Substitution Allowed [facility] tramadol 2012-11-29 20:52:00 No Enoch Joseph 25 mg, 0.5 tab, Route: PO, Drug form: TAB, ONCE, Dosing Weight 102.727, kg, Priority: STAT, Start date: 11/29/12 14:52:00, Stop date: 11/29/12 14:52:00 [facility] Tylenol 2012-11-29 18:47:00 No Van Menezes Abrams 1,000 mg, Route: PO, ONCE, Dosing Weight 102.727, kg, Priority: STAT, Start date: 11/29/12 12:47:00, Stop date: 11/29/12 12:47:00 [facility] Kayexalate 2012-11-29 17:58:00 No Van Abrams 30 gm, Route: PO, Drug form: SUSP, ONCE, Dosing Weight 102.727, kg, Priority: STAT, Start date: 11/29/12 11:58:00, Stop date: 11/29/12 11:58:00 [facility] sodium bicarbonate 2012-11-29 17:57:00 No Van Menezes Abrams 50 mEq, 50 mL, Route: INJ, Drug form: INJ, ONCE, Dosing Weight 102.727, kg, Priority: STAT, Start date: 11/29/12 11:57:00, Stop date: 11/29/12 11:57:00 [facility] DuoNeb inhalation solution 2012-11-29 17:35:00 No Van Menezes Abrams 3 mL, Route: NEB, Drug Form: SOLN, Dosing Weight 102.727, kg, ONCE, Start date: 11/29/12 11:35:00, Stop date: 11/29/12 11:35:00 [facility] Valium 2012-11-29 17:07:00 No Van Menezes Abrams 5 mg, 1 mL, Route: IVP, Drug form: INJ, ONCE, Dosing Weight 102.727, kg, Priority: STAT, Start date: 11/29/12 11:07:00, Stop date: 11/29/12 11:07:00 [facility] Saline Flush 0.9% 2012-11-29 17:06:00 No Van Abrams 5 ml, Route: IVP, Drug Form: INJ, Dosing Weight 102.727, kg, PRN, PRN Line Flush, Start date: 11/29/12 11:06:00, Duration: 30 day, Stop date: 12/29/12 11:05:00 [facility] ciprofloxacin 500 mg oral tablet 2012-09-10 16:44:18 Yes Joseluis Van Lisa 500 mg, 1 tab, PO, Q24H, 5 tab, Substitution Allowed, TAB [facility] Copake 5/325 oral tablet 2012-09-10 16:42:39 Yes Joseluis Enr ique Lisa 1-2 tab, PO, Q6H, PRN, 30 tab, Pain, Substitution Allowed, Maintenance [facility] methocarbamol 750 mg oral tablet 2012-09-10 16:42:17 Yes Joseluis Van Lisa 750 mg, 1 tab, PO, TID, 30 tab, Substitution Allowed, TAB [facility] Coreg 2012-09-10 03:00:00 No Enoch Camejo Joseph 25 mg, 2 tab, Route: PO, Drug form: TAB, Q12H, Dosing Weight 100, kg, Start date: 09/09/12 21:00:00, Duration: 30 day, Stop date: 10/09/12 9:00:00 [facility] lidocaine 1% 2012-09-09 21:55:00 Yes Jade Nash[place] 5 mL, Route: INTRADERM, Drug Form: INJ, Dosing Weight 100, kg, ONCE, STAT, Start date: 09/09/12 15:55:00, Stop date: 09/09/12 15:55:00 [facility] Kenalog-40 2012-09-09 21:54:00 Yes Jdae [place] 40 mg, 1 mL, Route: INTRADERM, Drug form: INJ, ONCE, Dosing Weight 100, kg, Priority: STAT, Start date: 09/09/12 15:54:00, Stop date: 09/09/12 15:54:00 [facility] Dilaudid 2012-09-09 16:59:00 No Joseluis Van Lisa 1 mg, 1 mL, Route: IV, Drug form: SOLN, Q3H, Dosing Weight 100, kg, PRN Pain Score 4-6, Start date: 09/09/12 10:59:00, Duration: 30 day, Stop date: 10/09/12 10:58:00 [facility] 2012-[facility] 15:00:00 No David Mahmoud Albustami 16 unit, 0.16 mL, Route: SUB-Q, Drug form: INJ, QAM, Dosing Weight 100, kg, Start date: 09/09/12 9:00:00, Duration: 30 day, Stop date: 10/08/12 9:00:00 [facility] Novolog 2012-09-09 14:00:00 No David Mahmoud Albus patsy 40 unit, 0.4 mL, Route: SUB-Q, Drug form: INJ, Breakfast, Dosing Weight 100, kg, Start date: 09/09/12 8:00:00, Duration: 30 day, Stop date: 10/08/12 8:00:00 [facility] Rocephin 2012-09-09 06:00:00 No Joseluis Gonzalez 1 gm, Route: IV, Q24H, Dosing Weight 100, kg, Start date: 09/09/12 0:00:00, Duration: 30 day, Stop date: 10/08/12 0:00:00 [facility] 2012-09-09 03:00:00 No David Murrietanestor Albustami 70 unit, 0.7 mL, Route: SUB-Q, Drug form: INJ, Bedtime, Dosing Weight 100, kg, Start date: 09/08/12 21:00:00, Duration: 30 day, Stop date: 10/07/12 21:00:00 [facility] carvedilol 2012-09-09 03:00:00 No Ramdaroxann Ballda Joseph 25 mg, 2 tab, Route: PO, Drug form: TAB, Bedtime, Dosing Weight 100, kg, Start date: 09/08/12 21:00:00, Duration: 30 day, Stop date: 10/07/12 21:00:00 [facility] Novolog 2012-09-08 23:00:00 No David Mahmoud Albus patsy 45 unit, 0.45 mL, Route: SUB-Q, Drug form: INJ, Dinner, Dosing Weight 100, kg, Start date: 09/08/12 17:00:00, Duration: 30 day, Stop date: 10/07/12 17:00:00 [facility] NovoLog Mix 70/30 FlexPen 2012-09-08 18:00:00 No Umm Rand 26 unit, 0.26 mL, Route: SUB-Q, Drug for m: INJ, Lunch, Dosing Weight 100, kg, Start date: 09/08/12 12:00:00, Duration: 30 day, Stop date: 10/07/12 12:00:00 [facility] Copake 5/325 oral tablet 2012-09-08 17:15:00 No Enoch Joseph 1 tab, Route: PO, Drug Form: TAB, Dosing Weight 100, kg, Q6H, PRN Pain, Start date: 09/08/12 11:15:00, Duration: 30 day, Stop date: 10/08/12 11:14:00 [facility] Rocephin + Sodium Chloride 0.9% IV 100 mL 2012-09-08 16:00 :00 No Joseluis Gonzalez 1 gm, Route: IVP B, Drug form: PDR/INJ, [id number], Dosing Weight 100, kg, Start date: 09/08/12 10:00:00, Duration: 30 day, Stop date: 10/07/12 10:00:00 [facility] Epogen (ESRD) 2012-09-07 23:00:00 No Enoch Joseph 3,000 unit, 1 mL, Route: SUB-Q, Drug form: INJ, Q-M-W-F, Dosing Weight 100, kg, Start date: 09/07/12 17:00:00, Duration: 30 day, Stop date: 10/05/12 17:00:00 [facility] epoetin shilpi 2012-09-07 23:00:00 No Enoch Joseph 2,000 unit, 1 mL, Route: SUB-Q, Drug form: INJ, Q-M-W-F, Start date: 09/07/12 17:00:00, Duration: 30 day, Stop date: 10/05/12 17:00:00 [facility] famotidine 2012-09-07 15:00:00 No William Terminella 20 mg, 1 tab, Route: PO, Drug form: TAB, Daily, Dosing Weight 100, kg, Start date: 09/07/12 9:00:00, Duration: 30 day, Stop date: 10/06/12 9:00:00 [facility] Novolog 70/30 2012-09-07 14:50:00 No Joseluis Van Lisa 40 unit, 0.4 mL, Route: SUB-Q, Drug form: INJ, QAM, Dosing Weight 100, kg, Start date: 09/07/12 8:50:00, Duration: 30 day, Stop date: 10/06/12 8:50:00 [facility] 2012-09-07 06:00:00 No Joseluis Van Lisa 100 mg, 2 cap, Route: PO, Drug form: CAP, Q8H, Dosing Weight 100, kg, Start date: 09/07/12 0:00:00, Duration: 30 day, Stop date: 10/06/12 16:00:00 [facility] 2012-09-07 03:00:00 No Joseluis Van Lisa 40 mg, 1 tab, Route: PO, Drug form: TAB, Bedtime, Dosing Weight 100, kg, Start date: 09/06/12 21:00:00, Duration: 30 day, Stop date: 10/05/12 21:00:00 [facility] [facility] 2012-09-07 03:00:00 No Joseluis Van Lisa 75 mg, 1 cap, Route: PO, Drug form: CAP, Q12H, Dosing Weight 100, kg, Start date: 09/06/12 21:00:00, Duration: 30 day, Stop date: 10/06/12 9:00:00 [facility] Levemir 2012-09-07 03:00:00 No Joseluis Van Lisa 70 unit, 0.7 mL, Route: SUB-Q, Drug form: INJ, Bedtime, Dosing Weight 100, kg, Start date: 09/06/12 21:00:00, Duration: 30 day, Stop date: 10/05/12 21:00:00 [facility] gabapentin 100 mg oral capsule 2012-09-07 03:00:00 No Joseluis Van Lisa 100 mg, 1 cap, Route: PO, Drug form: CAP , Q12H, Dosing Weight 100, kg, Start date: 09/06/12 21:00:00, Duration: 30 day, Stop date: 10/06/12 9:00:00 [facility] carvedilol 2012-09-07 03:00:00 No Enoch Camejo Joseph 50 mg, 4 tab, Route: PO, Drug form: TAB, Bedtime, Dosing Weight 100, kg, Start date: 09/06/12 21:00:00, Duration: 30 day, Stop date: 10/05/12 21:00:00 [facility] Novolin R 2012-09-07 02:41:00 No Faraz Cerna 10 unit, 0.1 mL, Route: IV, Drug form: INJ, ONCE, Start date: 09/06/12 20:41:00, Stop date: 09/06/12 20:41:00 [facility] Novolin R 100 unit + Sodium Chloride 0.9% IV 99 mL 2012-08 02:27:00 No Joseluis Van Lisa 99 mL, Rate: Ti trate per Insulin drip protocol, Route: IV, kg, Total Volume: 100, Start date: 09/06/12 20:27:00, Stop date: 10/06/12 20:26:00 [facility] NovoLog FlexPen 2012-09-07 02:26:00 No Faraz menezes 10 unit, 0.1 mL, Route: SUB-Q, Drug form: SOLN, ONCE, Start date: 09/06/12 20:26:00, Stop date: 09/06/12 20:26:00 [facility] insulin aspart 2012-09-07 01:01:00 No Joseluis Van Lisa 20 unit, 0.2 mL, Route: SUB-Q, Drug form: SOLN, ONCE, Dosing Weight 100, kg, Start date: 09/06/12 19:01:00, Stop date: 09/06/12 19:01:00 [facility] oxybutynin 2012-09-06 23:00:00 No Joseluis Van Lisa 5 mg, 1 tab, Route: PO, Drug form: TAB, BID, Dosing Weight 100, kg, Start date: 09/06/12 17:00:00, Duration: 30 day, Stop date: 10/06/12 9:00:00 [facility] Novolog 70/30 2012-09-06 23:00:00 No Joseluis Van Lisa 45 unit, 0.45 mL, Route: SUB-Q, Drug form: INJ, Dinner, Dosing Weight 100, kg, Start date: 09/06/12 17:00:00, Duration: 30 day, Stop date: 10/05/12 17:00:00 [facility] NovoLog FlexPen 2012-09-06 22:31:00 No Enoch Camejo Kerri ar 20 unit, 0.2 mL, Route: SUB-Q, Drug form: SOLN, ONCE, Start date: 09/06/12 16:31:00, Stop date: 09/06/12 16:31:00 [facility] insulin aspart 2012-09-06 22:02:00 No Joseluis Van Lisa 15 unit, 0.15 mL, Route: SUB-Q, Drug form: SOLN, TID-Before Meals, Dosing Weight 100, kg, PRN Blood Glucose Results, Start date: 09/06/12 16:02:00, Duration: 30 day, Stop date: 10/06/12 16:01:00 [facility] Dextrose 50% Syringe 2012-09-06 22:02:00 No Joseluis Enriqu e Lisa 12.5 gm, 25 mL, Route: IVP, Drug Form: INJ, Dosing Weight 100, kg, PRN, PRN Blood Glucose Results, Start date: 09/06/12 16:02:00, Duration: 30 day, Stop date: 10/06/12 16:01:00 [facility] glucagon 2012-09-06 22:02:00 No Joseluis Van Lisa 1 mg, Route: IM, Drug form: PDR/INJ, PRN, Dosing Weight 100, kg, PRN Blood Glucose Results, Start date: 09/06/12 16:02:00, Duration: 30 day, Stop date: 10/06/12 16:01:00 [facility] ropinirole 2012-09-06 22:00:00 No Joseluis Van Lisa 0.25 mg, 1 tab, Route: PO, Drug form: TAB, Q8H, Dosing Weight 100, kg, Start date: 09/06/12 16:00:00, Duration: 30 day, Stop date: 10/06/12 8:00:00 [facility] insulin detemir 2012-09-06 19:00:00 No Joseluis Van Lisa 16 unit, 0.16 mL, Route: SUB-Q, Drug form: INJ, Daily, Dosing Weight 100, kg, Start date: 09/06/12 13:00:00, Duration: 30 day, Stop date: 10/06/12 9:00:00 [facility] furosemide 40 mg oral tablet 2012-09-06 18:14:00 No Ramdas Nell Joseph 40 mg, 1 tab, Route: PO, Drug form: TAB, U-Gp-Sx-Sa-Higgins, Dosing Weight 100, kg, Start date: 09/06/12 12:14:00, Duration: 30 day, Stop date: 10/06/12 9:00:00 [facility] carvedilol 2012-09-06 18:13:00 No Ramdas Nell Joseph 50 mg, 4 tab, Route: PO, Drug form: TAB, T-Fz-Cr-Sa-Higgins, Dosing Weight 100, kg, Start date: 09/06/12 12:13:00, Duration: 30 day, Stop date: 10/06/12 9:00:00 [facility] amLODipine 2012-09-06 18:10:00 No Joseluis Van Lisa 5 mg, 1 tab, Route: PO, Drug form: TAB, N-Bn-Kz-Sa-Higgins, Dosing Weight 100, kg, Start date: 09/06/12 12:10:00, Duration: 30 day, Stop date: 10/06/12 9:00:00 [facility] Renvela 2012-09-06 18:00:00 No Joseluis Van Lisa 2,400 mg, 3 tab, Route: PO, Drug form: TAB, TID-Meals, Dosing Weight 100, kg, Start date: 09/06/12 12:00:00, Duration: 30 day, Stop date: 10/06/12 8:00:00 [facility] NovoLog Mix 70/30 FlexPen 2012-09-06 18:00:00 No Joseluis E nrique Lisa 26 unit, 0.26 mL, Route: SUB-Q, Drug form: INJ, Lunch, Dosing Weight 100, kg, Start date: 09/06/12 12:00:00, Duration: 30 day, Stop date: 10/05/12 12:00:00 [facility] Robaxin 2012-09-06 15:00:00 No Joseluis Van Lisa 750 mg, 1 tab, Route: PO, Drug form: TAB, TID, Dosing Weight 100, kg, Start date: 09/06/12 9:00:00, Duration: 30 day, Stop date: 10/05/12 17:00:00 [facility] docusate 2012-09-06 15:00:00 No Joseluis Van Lisa 100 mg, 1 cap, Route: PO, Drug form: CAP, BID, Dosing Weight 100, kg, Start date: 09/06/12 9:00:00, Duration: 30 day, Stop date: 10/05/12 17:00:00 [facility] Kayexalate 2012-09-06 14:52:00 No Enoch Joseph 30 gm, 120 mL, Route: PO, Drug form: SUSP, ONCE, Dosing Weight 100, kg, Start date: 09/06/12 8:52:00, Stop date: 09/06/12 8:52:00 [facility] [place] acetaminophen 2012-09-06 05:14:00 No Octavio Mauro 650 mg, 2 tab, Route: PO, Drug form: TAB, Q4H, Dosing Weight 100, kg, PRN Pain/Fever, Start date: 09/05/12 23:14:00, Duration: 30 day, Stop date: 10/05/12 23:13:00 [facility] Zofran 2012-09-06 05:13:00 No Octavio Mauro 4 mg, 2 mL, Route: IV, Drug form: INJ, Q4H, Dosing Weight 100, kg, PRN Nausea, Start date: 09/05/12 23:13:00, Duration: 30 day, Stop date: 10/05/12 23:12:00 [facility] morphine Sulfate 2012-09-06 05:11:00 No Joseluis Van Mo k 4 mg, 2 mL, Route: IVP, Drug form: INJ, Q3H, Dosing Weight 100, kg, PRN Pain, Start date: 09/05/12 23:11:00, Duration: 30 day, Stop date: 10/05/12 23:10:00 [facility] heparin 2012-09-06 03:00:00 No Joseluis Van Lisa 5,000 unit, 1 mL, Route: SUB-Q, Drug form: INJ, Q12H, Dosing Weight 100, kg, Start date: 09/05/12 21:00:00, Duration: 30 day, Stop date: 10/05/12 9:00:00 [facility] SoluMedrol 2012-09-06 03:00:00 No Joseluis Van Lisa 40 mg, 1 mL, Route: IVP, Drug form: INJ, Q12H, Dosing Weight 100, kg, Start date: 09/05/12 21:00:00, Duration: 24 hr, Stop date: 09/06/12 9:00:00 [facility] carvedilol 25 mg oral tablet 2012-09-05 23:58:19 Yes [place] n Van Lisa 50 mg, 2 tab, PO, W-Ux-Go, 180 tab, Substitution Allowed, TAB [facility] Robaxin + Sodium Chloride 0.9% IV 100 mL 2012-09-05 23:31: 00 No Joseluis Van Lisa 1,000 mg, 10 mL, Route: IV, Drug form: INJ, ONCE, Dosing Weight 100, kg, Start date: 09/05/12 17:31:00, Stop date: 09/05/12 17:31:00 [facility] Ativan 2012-09-05 23:30:00 No Joseluis Van Lisa 1 mg, 0.5 mL, Route: IVP, Drug form: INJ, ONCALL, Dosing Weight 100, kg, Start date: 09/05/12 17:30:00, Duration: 1 doses or times, prior to MRI [facility] insulin aspart 2012-09-05 23:29:00 No Joseluis Van Lisa 3 unit, 0.03 mL, Route: SUB-Q, Drug form: SOLN, TID-Before Meals, Dosing Weight 100, kg, PRN Blood Glucose Results, Start date: 09/05/12 17:29:00, Duration: 30 day, Stop date: 10/05/12 17:28:00 [facility] Dextrose 50% Syringe 2012-09-05 23:29:00 No Joseluis Enriqu e Lisa 25 gm, 50 mL, Route: IVP, Drug Form: INJ, Dosing Weight 100, kg, PRN, PRN Blood Glucose Results, Start date: 09/05/12 17:29:00, Duration: 30 day, Stop date: 10/05/12 17:28:00 [facility] glucagon 2012-09-05 23:29:00 No Joseluis Van Lisa 1 mg, Route: IM, Drug form: PDR/INJ, PRN, Dosing Weight 100, kg, PRN Blood Glucose Results, Start date: 09/05/12 17:29:00, Duration: 30 day, Stop date: 10/05/12 17:28:00 [facility] acetaminophen-hydrocodone 325 mg-5 mg oral tablet 23:26:00 No Joseluis Van Lisa 1 tab, Route: P O, Drug Form: TAB, Dosing Weight 100, kg, Q4H, PRN Pain Score 1-3, Start date: 09/05/12 17:26:00, Duration: 30 day, Stop date: 10/05/12 17:25:00 [facility] acetaminophen 2012-09-05 23:26:00 No Joseluis Van Lisa 650 mg, 2 tab, Route: PO, Drug form: TAB, Q4H, Dosing Weight 100, kg, PRN Pain/Fever, Start date: 09/05/12 17:26:00, Duration: 30 day, Stop date: 10/05/12 17:25:00 [facility] ondansetron 2012-09-05 23:26:00 No Joseluis Van Lisa 4 mg, 2 mL, Route: IVP, Drug form: INJ, Q6H, Dosing Weight 100, kg, PRN Nausea & Vomiting, Start date: 09/05/12 17:26:00, Duration: 30 day, Stop date: 10/05/12 17:25:00 [facility] morphine Sulfate 2012-09-05 23:26:00 No Joseluis Van Mo k 2 mg, 1 mL, Route: IVP, Drug form: INJ, Q3H, Dosing Weight 100, kg, PRN Pain Score 4-6, Start date: 09/05/12 17:26:00, Duration: 30 day, Stop date: 10/05/12 17:25:00 [facility] temazepam 2012-09-05 23:26:00 No Joseluis Van Lisa 15 mg, 1 cap, Route: PO, Drug form: CAP, Bedtime, Dosing Weight 100, kg, PRN Insomnia, Start date: 09/05/12 17:26:00, Duration: 30 day, Stop date: 10/05/12 17:25:00 [facility] ALPRAZOLam 2012-09-05 23:26:00 No Joseluis Van Lisa 0.25 mg, 1 tab, Route: PO, Drug form: TAB, Q8H, Dosing Weight 100, kg, PRN Anxiety, Start date: 09/05/12 17:26:00, Duration: 30 day, Stop date: 10/05/12 17:25:00 [facility] ondansetron 2012-09-05 22:13:00 No María Aprielle Aaliyah 4 mg, 2 mL, Route: IVP, Drug form: INJ, ONCE, Dosing Weight 100, kg, Priority: STAT, Start date: 09/05/12 16:13:00, Stop date: 09/05/12 16:13:00 [facility] morphine Sulfate 2012-09-05 22:13:00 No María Aprielle [place] 4 mg, 2 mL, Route: IVP, Drug form: INJ, ONCE, Dosing Weight 100, kg, Priority: STAT, Start date: 09/05/12 16:13:00, Stop date: 09/05/12 16:13:00 [facility] cyclobenzaprine 2012-09-05 20:40:00 No María Aprielle Aaliyah 10 mg, 1 tab, Route: PO, Drug form: TAB, ONCE, Dosing Weight 100, kg, Priority: STAT, Start date: 09/05/12 14:40:00, Stop date: 09/05/12 14:40:00 [facility] morphine Sulfate 2012-09-05 20:40:00 No María Aprielle [place] 4 mg, 2 mL, Route: IVP, Drug form: INJ, ONCE, Dosing Weight 100, kg, Priority: STAT, Start date: 09/05/12 14:40:00, Stop date: 09/05/12 14:40:00 [facility] Zyvox 2012-07-11 22:00:00 No Taso Mougouris 600 mg, 1 tab, Route: PO, Drug form: TAB, [id number], Dosing Weight 115.909, kg, Start date: 07/11/12 17:00:00, Duration: 30 day, Stop date: 08/10/12 5:00:00 [facility] Zyvox 600 mg oral tablet 2012-07-11 20:27:01 Yes Taso Mo ugouris 600 mg, 1 tab, PO, [id number], 20 tab, Substitution Allowed, TAB [facility] Renvela 2012-07-07 22:00:00 No Enoch Joseph 4 gm, 5 tab, Route: PO, Drug form: TAB, TID-Meals, Dosing Weight 115.909, kg, Start date: 07/07/12 17:00:00, Duration: 30 day, Stop date: 08/06/12 12:00:00 [facility] cefepime + Sodium Chloride 0.9% IV 100 mL 2012-07-07 20:00 :00 No Bilal Sarvat 1 gm, Route: IVP B, [id number], Dosing Weight 115.909, kg, (CrCl 10 - 29 ml/min), Start date: 07/07/12 15:00:00, Duration: 30 day, Stop date: 08/05/12 15:00:00 [facility] Epogen (ESRD) 2012-07-06 22:00:00 No Enoch Joseph 12,000 unit, 3 mL, Route: SUB-Q, Drug form: INJ, Q-M-W-F, Dosing Weight 115.909, kg, Start date: 07/06/12 17:00:00, Duration: 30 day, Stop date: 08/03/12 17:00:00 [facility] Zyvox 2012-07-05 20:00:00 No Gaxiola Amanda Cardenas 600 mg, 300 mL, Route: IVPB, Drug form: SOLN, [id number], Dosing Weight 115.909, kg, Start date: 07/05/12 15:00:00, Duration: 30 day, Stop date: 08/04/12 3:00:00 [facility] phenol topical 1.4% spray 2012-07-05 15:52:00 No Joseluislias bhandarikamar Lisa 1 spray, Route: PO, PRN, Drug form: SPRY PRN Sore Throat, Start date: 07/05/12 10:52:00, Duration: 30 day, Stop date: 08/04/12 10:51:00 [facility] Cepacol Dual Relief Sore Throat Mint 5% topical spray 2012-07-05 15:47:00 No Joseluis Van Lisa 1 spray, [place]: TOP, Dosing Weight 115.909, kg, PRN, PRN Sore Throat, Start date: 07/05/12 10:47:00, Duration: 30 day, Stop date: 08/04/12 10:46:00 [facility] Ativan 2012-07-04 23:25:00 No Bilal Sarvat 2 mg, 1 mL, Route: IVP, Drug form: INJ, ONCE, Dosing Weight 115.909, kg, PRN Anxiety, Start date: 07/04/12 18:25:00, 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 [facility] 2012-07-04 16:36:00 No Bilal Sarvat 2 mg, 1 mL, Route: IVP, Drug form: INJ, ONCE, Dosing Weight 115.909, kg, PRN Anxiety, Start date: 07/04/12 11:36:00 [facility] MiraLax 2012-07-04 00:58:00 No Faraz Cerna 17 gm, 1 pkt, Route: PO, Drug form: PWDR, Daily, PRN Constipation, Start date: 07/03/12 19:58:00, Duration: 30 day, Stop date: 08/02/12 19:57:00 [facility] Cipro 2012-07-03 23:00:00 No Gaxiola Amanda Cardenas 200 mg, 100 mL, Route: IVPB, Drug form: INJ, [id number], Dosing Weight 115.909, kg, Start date: 07/03/12 18:00:00, Duration: 30 day, Stop date: 08/02/12 6:00:00 [facility] cefepime + Sodium Chloride 0.9% IV 100 mL 2012-07-03 23:00 :00 No Minor Patel Cardenas 1 gm, Route: IVP B, [id number], Dosing Weight 115.909, kg, Start date: 07/03/12 18:00:00, Duration: 30 day, Stop date: 08/01/12 18:00:00 [facility] Insulin regular 2012-07-03 19:20:00 No Enoch Manning ar 8 unit, 0.08 mL, Route: IV, Drug form: INJ, ONCE, Dosing Weight 115.909, kg, Start date: 07/03/12 14:20:00, Stop date: 07/03/12 14:20:00 [facility] d50 syringe 2012-07-03 19:20:00 No Enoch Joseph 1 amp, Route: IV, Drug Form: INJ, Dosing Weight 115.909, kg, ONCE, Start date: 07/03/12 14:20:00, Stop date: 07/03/12 [facility] 2012-07-03 19:20:00 No Enoch Joseph 4.98 mg, 6 mL, R oute: NEB, Drug form: SOLN, ONCE, Dosing Weight 115.909, kg, Start date: 07/03/12 14:20:00, Stop date: 07/03/12 14:20:00 [facility] Kayexalate 2012-07-03 15:34:00 No Taso Mougouris 30 gm, 120 mL, Route: PO, Drug form: SUSP, ONCE, Start date: 07/03/12 10:34:00, Stop date: 07/03/12 10:34:00 [facility] Ativan 2012-07-03 01:00:00 No Elise Umakabrittanie Majmundar 2 mg, 1 mL, Route: IV, Drug form: INJ, ONCALL, Start date: 07/02/12 20:00:00, Duration: 1 doses or times [facility] Renvela 2012-07-02 17:30:00 No Enoch Joseph 3,200 mg, 4 tab, Route: PO, Drug form: TAB, TID-Meals, Dosing Weight 115.909, kg, Start date: 07/02/12 12:30:00, Duration: 30 day, Stop date: 08/01/12 12:00:00 [facility] Xanax 0.25 mg oral tablet 2012-07-02 17:14:00 No Ramdaroxann Ballda Joseph 0.25 mg, 1 tab, Route: PO, Drug form: TAB, TID, Dosing Weight 115.909, kg, PRN Anxiety, Start date: 07/02/12 12:14:00, Duration: 30 day, Stop date: 08/01/12 12:13:00 [facility] acetaminophen 325 mg oral tablet 2012-07-02 17:00:00 No Daphney Aboussleman 2 tab, Route: PO, Q4H, Dosin g Weight 115.909, kg, Start date: 07/02/12 12:00:00, Duration: 30 day, Stop date: 08/01/12 8:00:00 [facility] acetaminophen 325 mg oral tablet 2012-07-02 16:38:00 No Daphney Aboussleman 650 mg, 2 tab, Route: PO, Dr ug form: TAB, PRN, Dosing Weight 115.909, kg, PRN as needed for pain, Start date: 07/02/12 11:38:00, Stop date: 08/01/12 11:37:00 [facility] docusate sodium 100 mg oral capsule 2012-07-02 16:21:00 No Daphney Aboussleman 100 mg, 1 cap, R oute: PO, Drug form: CAP, BID, Dosing Weight 115.909, kg, PRN Constipation, Start date: 07/02/12 11:21:00, Duration: 30 day, Stop date: 08/01/12 11:20:00 [facility] Novolog 70/30 2012-07-02 12:50:00 No Joselodaroxann Ballda Joseph 40 unit, 0.4 mL, Route: SUB-Q, Drug form: INJ, Before Breakfast, Dosing Weight 115.909, kg, Start date: 07/02/12 7:50:00, Duration: 30 day, Stop date: 07/31/12 7:50:00 [facility] ceftriaxone + Sodium Chloride 0.9% IV 100 mL 2012-07-02 05 :00:00 No Bilal Sarvat 1 gm, Route: IVP B, [id number], Dosing Weight 115.909, kg, Start date: 07/02/12 0:00:00, Duration: 30 day, Stop date: 07/31/12 0:00:00 [facility] simvastatin 2012-07-02 02:00:00 No Ramdaroxann Ballda Joseph 40 mg, 1 tab, Route: PO, Drug form: TAB, Bedtime, Dosing Weight 115.909, kg, Start date: 07/01/12 21:00:00, Duration: 30 day, Stop date: 07/30/12 21:00:00 [facility] Levemir 2012-07-02 02:00:00 No Ramdas Nell Joseph 70 unit, 0.7 mL, Route: SUB-Q, Drug form: INJ, Bedtime, Dosing Weight 115.909, kg, Start date: 07/01/12 21:00:00, Duration: 30 day, Stop date: 07/30/12 21:00:00 [facility] Lyrica 2012-07-01 22:00:00 No Dieterith Paramjit Majmundar 25 mg, 1 cap, Route: PO, Drug form: CAP, QPM, Dosing Weight 115.909, kg, Start date: 07/01/12 17:00:00, Duration: 30 day, Stop date: 07/30/12 17:00:00 [facility] Novolog 70/30 2012-07-01 21:50:00 No Ramdaroxann Ballda Joseph 45 unit, 0.45 mL, Route: SUB-Q, Drug form: INJ, Before Dinner, Dosing Weight 115.909, kg, Start date: 07/01/12 16:50:00, Duration: 30 day, Stop date: 07/30/12 16:50:00 [facility] Renvela 2012-07-01 17:00:00 No Ramdas Nell Joseph 2,400 mg, 3 tab, Route: PO, Drug form: TAB, TID-Meals, Dosing Weight 115.909, kg, Start date: 07/01/12 12:00:00, Duration: 30 day, Stop date: 07/31/12 8:00:00 [facility] oxybutynin 2012-07-01 17:00:00 No Enoch Joseph 5 mg, 1 tab, Route: PO, Drug form: TAB, Q12H, Dosing Weight 115.909, kg, Start date: 07/01/12 12:00:00, Duration: 30 day, Stop date: 07/31/12 9:00:00 [facility] Nephro-Melodie Rx 2012-07-01 17:00:00 No Enoch Camejo Kuma r 1 tab, Route: PO, Drug Form: TAB, Dosing Weight 115.909, kg, Lunch, Start date: 07/01/12 12:00:00, Duration: 30 day, Stop date: 07/30/12 12:00:00 [facility] lisinopril 2012-07-01 17:00:00 No Enoch Joseph 20 mg, 1 tab, Route: PO, Drug form: TAB, Q12H, Dosing Weight 115.909, kg, Start date: 07/01/12 12:00:00, Duration: 30 day, Stop date: 07/31/12 9:00:00 [facility] gabapentin 100 mg oral capsule 2012-07-01 17:00:00 No Elise Yusuf Majmundar 200 mg, 2 cap, R oute: PO, Drug form: CAP, Q12H, Dosing Weight 115.909, kg, Start date: 07/01/12 12:00:00, Stop date: 07/31/12 9:00:00 [facility] NovoLog Mix 70/30 FlexPen 2012-07-01 16:50:00 No Enoch Joseph 26 unit, 0.26 mL, Route: SUB-Q, Drug form: INJ, Before Lunch, Dosing Weight 115.909, kg, Start date: 07/01/12 11:50:00, Duration: 30 day, Stop date: 07/30/12 11:50:00 [facility] pneumococcal 23-valent vaccine 2012-07-01 14:00:00 No S YSTEM SYSTEM 0.5 ml, Route: IM, Drug Form: INJ, Daily, Start date: 07/01/12 9:00:00, Duration: 1 doses or times, Stop date: 07/01/12 9:00:00 [facility] atropine 2012-07-01 10:22:00 No Ramdas Nell Joseph 0.5 mg, 5 mL, Route: IVP, Drug form: INJ, PRN, PRN Bradycardia, Start date: 07/01/12 5:22:00, Duration: 30 day, Stop date: 07/31/12 5:21:00 [facility] nitroglycerin 0.4 mg sublingual tablet 2012-07-01 10:22:00 No Ramdas Nell Joseph 0.4 mg, 1 tab, R oute: SL, Drug form: TAB, Q5Min, PRN Chest Pain, Start date: 07/01/12 5:22:00, Duration: 30 day, Stop date: 07/31/12 5:21:00 [facility] Lyrica 2012-07-01 09:08:03 Yes Ramdas Nell Joseph 25 mg, PO, Daily, Substitution Allowed [facility] Saline Flush 0.9% 2012-07-01 08:20:00 No Ramdas Nell K umar 5 ml, Route: IVP, Drug Form: INJ, Dosing Weight 115.909, kg, PRN, PRN Line Flush, Start date: 07/01/12 3:20:00, Duration: 30 day, Stop date: 07/31/12 3:19:00 [facility] morphine Sulfate 2012-07-01 08:20:00 No Enoch pulido 2 mg, 1 mL, Route: IVP, Drug form: INJ, Q3H, Dosing Weight 115.909, kg, PRN Pain Score 4-6, Start date: 07/01/12 3:20:00, Stop date: 07/31/12 3:19:00 [facility] ondansetron 2012-07-01 08:20:00 No Ramdas Nell Rajesh 4 mg, 2 mL, Route: IVP, Drug form: INJ, Q6H, Dosing Weight 115.909, kg, PRN Nausea & Vomiting, Start date: 07/01/12 3:20:00, Duration: 30 day, Stop date: 07/31/12 3:19:00 [facility] ceftriaxone + Sodium Chloride 0.9% IV 100 mL 2012-07-01 04 :17:00 No Perico Sharma 1 gm, Route: IVP B, ONCE, Dosing Weight 115.909, kg, Start date: 06/30/12 23:17:00, Stop date: 06/30/12 23:17:00 [facility] morphine Sulfate 2012-07-01 04:10:00 No Perico Sharma 2 mg, 0.2 mL, Route: IVP, Drug form: INJ, ONCE, Dosing Weight 115.909, kg, Priority: STAT, Start date: 06/30/12 23:10:00, Stop date: 06/30/12 23:10:00 [facility] [place] Novolog 70/30 2012-07-01 04:05:51 Yes Ramdas Nell Joseph 45 unit, SUB- Q, Dinner, Substitution Allowed [facility] NovoLog Mix 70/30 FlexPen 2012-07-01 04:05:27 Yes Ramdas Nell Joseph 26 unit, SUB-Q, Lunch, Substitution Allowed [facility] Novolog 70/30 2012-07-01 04:04:38 Yes Ramdas Nell Joseph 40 unit, SUB- Q, QAM, [facility] sim[facility] 2012-07-01 04:04:14 Yes Ramdas Nell Joseph 40 mg, 1 tab, PO, Bedtime, 30 tab, Substitution Allowed [facility] amLODipine 2012-07-01 04:03:57 Yes 5 mg, PO, Daily, Substitution Allowed [facility] lisinopril 20 mg oral tablet 2012-07-01 04:03:43 Yes Ramdas Nell Joseph 20 mg, 1 tab, PO, BID, 30 tab, Substitution Allowed, TAB [facility] oxybutynin 5 mg oral tablet 2012-07-01 04:03:21 Yes Ramdas Nell Joseph 5 mg, 1 tab, PO, BID, 30 tab, Substitution Allowed, TAB [facility] gabapentin 100 mg oral capsule 2012-07-01 04:02:42 Yes Ramdas Nell Joseph 100 mg, 1 cap, PO, BID, 240 cap, Substitution Allowed [facility] carvedilol 25 mg oral tablet 2012-07-01 04:01:59 Yes 50 mg, 2 tab, PO, BID, 60 tab, Substitution Allowed, TAB [facility] ropinirole 0.25 mg oral tablet 2012-07-01 04:01:33 Yes 0.25 mg, 1 tab, PO, TID, 90 tab, Substitution Allowed, TAB [facility] Renvela 800 mg oral tablet 2012-07-01 04:01:13 Yes Alisha Joseph 2,400 mg, 3 tab, PO, TID-Meals, 270 tab, Substitution Allowed, TAB [facility] albuterol 0.083% inhalation solution 2012-07-01 02:31:00 No Perico Sharma 19.92 mg, 24 mL, Rou te: NEB, Drug form: SOLN, ONCE, Dosing Weight 115.909, kg, Start date: 06/30/12 21:31:00, Stop date: 06/30/12 21:31:00 [facility] Dextrose 50% Syringe 2012-07-01 02:31:00 No Perico Bess sen 50 gm, 100 mL, Route: IV, Drug Form: INJ, Dosing Weight 115.909, kg, ONCE, Start date: 06/30/12 21:31:00, Stop date: 06/30/12 21:31:00 [facility] insulin regular human recombinant 100 units/mL injectable so lution 2012-07-01 02:31:00 No Perico Sharma 10 un it, 0.1 mL, Route: IVP, Drug form: INJ, ONCE, Dosing Weight 115.909, kg, Start date: 06/30/12 21:31:00, Stop date: 06/30/12 21:31:00 [facility] calcium gluconate + Sodium Chloride 0.9% IV 100 mL 2012-06 02:31:00 No Perico Sparksen 2 gm, 20 mL, Rou te: IV, ONCE, Dosing Weight 115.909, kg, Start date: 06/30/12 21:31:00, Stop date: 06/30/12 21:31:00 [facility] sodium polystyrene sulfonate 2012-07-01 02:31:00 No Cruz Sharma 30 gm, 120 mL, Route: PO, Drug form: SUSP, ONCE, Dosing Weight 115.909, kg, Start date: 06/30/12 21:31:00, Duration: 1 doses or times, Stop date: 06/30/12 21:31:00 [facility] Saline Flush 0.9% 2012-07-01 01:29:00 No Enoch Gonsales umar 5 ml, Route: IVP, Drug Form: INJ, Dosing Weight 115.909, kg, PRN, PRN Line Flush, Start date: 06/30/12 20:29:00, Duration: 24 hr, Stop date: 07/01/12 20:28:00 [facility] Epogen (ESRD) 2012-02-17 22:00:00 No Enoch Joseph 10,000 unit, 1 mL, Route: SUB-Q, Drug form: INJ, Q-M-W-F, Start date: 02/17/12 17:00:00, Duration: 30 day, Stop date: 03/16/12 17:00:00 [facility] cefepime 2012-02-15 17:00:00 No Taso Mougouris 1 gm, Route: IVPB, [id number], Start date: 02/15/12 12:00:00, Duration: 30 day, Stop date: 03/16/12 0:00:00 [facility] Reglan 5 mg oral tablet 2012-02-15 16:30:00 No Ezequiel Paco Kafrouni 5 mg, 1 tab, Route: PO, Drug form: TAB, Before Meals & Bedtime, Start date: 02/15/12 11:30:00, Duration: 30 day, Stop date: 03/16/12 7:30:00 [facility] tramadol 50 mg oral tablet 2012-02-15 16:05:00 No Alisha Joseph 50 mg, 1 tab, Route: PO, Drug form: TAB, Q12H, PRN as needed for pain, Start date: 02/15/12 11:05:00, Duration: 30 day, Stop date: 03/16/12 11:04:00 [facility] lactulose 2012-02-15 14:00:00 No Sara Ryder 20 gm, 30 mL, Route: PO, Drug form: SYRP, Daily, Start date: 02/15/12 9:00:00, Duration: 30 day, Stop date: 03/15/12 9:00:00 [facility] LR IV 500 mL 2012-02-15 12:39:00 No Ezequiel I Kafrouni 500 mL, Rate: 125 ml/hr, Infuse over: 4 hr, Route: IV, Dosing Weight 81.818 kg, Total Volume: 500, Start date: 02/15/12 7:39:00, Duration: 30 day, Stop date: 03/16/12 7:38:00 [facility] LR IV 500 mL 500 mL 2012-02-15 12:39:00 No Ezequiel ryan 500 mL, Rate: 40 ml/hr, Infuse over: 12.5 hr, Route: IV, Dosing Weight 81.818 kg, Total Volume: 500, Start date: 02/15/12 7:39:00, Duration: 30 day, Stop date: 03/16/12 7:38:00 [facility] Kayexalate 2012-02-14 21:24:00 No Enoch Joseph 30 gm, 120 mL, Route: PO, Drug form: SUSP, ONCE, Start date: 02/14/12 16:24:00, Stop date: 02/14/12 16:24:00 [facility] lactulose 2012-02-13 23:00:00 No Sara Ryder 20 gm, 30 mL, Route: PO, Drug form: SYRP, Q6H, Start date: 02/13/12 18:00:00, Duration: 6 doses or times, Stop date: 02/15/12 0:00:00 Shahzad tello [place] MiraLax 2012-02-11 22:00:00 No Ezequiel Enriquez 17 gm, 1 pkt, Route: PO, Drug form: PWDR, BID, Start date: 02/11/12 17:00:00, Duration: 30 day, Stop date: 03/12/12 9:00:00 [facility] Dulcolax Laxative 2012-02-11 17:14:00 No Ezequiel bautista 10 mg, 1 supp, Route: [place], Drug form: SUPP, ONCE, Start date: 02/11/12 12:14:00, Stop date: 02/11/12 12:14:00 [facility] carvedilol 12.5 mg oral tablet 2012-02-11 16:20:10 Yes T aso Mougouris 12.5 mg, 1 tab, PO, Q12H, 60 tab, Substitution Allowed, TAB [facility] Bentyl 20 mg oral tablet 2012-02-11 16:19:04 Yes Taso Mo ugouris 20 mg, 1 tab, PO, QID, 30 tab, Substitution Allowed, TAB [facility] Copake 10/325 oral tablet 2012-02-11 16:18:39 Yes Taso Mo ugouris 1 tab, PO, Q4H, PRN, 30 tab, Pain, Substitution Allowed, Maintenance, TAB [facility] Copake 10/325 oral tablet 2012-02-11 16:17:00 No Taso Mo ugouris 1 tab, Route: PO, Drug Form: TAB, Q4H, PRN Pain, Start date: 02/11/12 11:17:00, Duration: 30 day, Stop date: 03/12/12 11:16:00 [facility] carvedilol 2012-02-11 02:00:00 No Ramdaroxann Ballda Joseph 12.5 mg, 1 tab, Route: PO, Drug form: TAB, Q12H, Start date: 02/10/12 21:00:00, Duration: 30 day, Stop date: 03/11/12 9:00:00 Bren power Miguemarcia Bonilla 2012-02-10 22:00:00 No Taso Mougouris 20 mg, 1 tab, Route: PO, Drug form: TAB, QID, Start date: 02/10/12 17:00:00, Duration: 30 day, Stop date: 03/11/12 13:00:00 [facility] hydrALAZINE 2012-02-08 06:54:00 No Jonathan mckeon 20 mg, 1 mL, Route: IV, Drug form: INJ, Q6H, PRN Elevated BP, Start date: 02/08/12 1:54:00, Duration: 30 day, Stop date: 03/09/12 1:53:00 [facility] docusate sodium 100 mg oral capsule 2012-02-06 17:30:00 No Dorene Le Jr 100 mg, 1 cap, Route: PO, Drug form: CAP, BID, Start date: 02/06/12 12:30:00, Duration: 30 day, Stop date: 03/07/12 9:00:00 [facility] Phenergan 2012-02-06 02:01:00 No Gaxiola Amanda Cardenas 12.5 mg, 0.5 mL, Route: IVPB, Q4H, PRN Nausea & Vomiting, Start date: 02/05/12 21:01:00, Duration: 30 day, Stop date: 03/06/12 21:00:00 [facility] Cipro 2012-02-03 18:00:00 No Rica Sarker 250 mg, 1 tab, Route: PO, Drug form: TAB, Q48H, Start date: 02/03/12 13:00:00, Duration: 30 day, Stop date: 03/02/12 13:00:00 [facility] Detrol 2012-02-02 14:00:00 No Rica Sarker 4 mg, 2 tab, Route: PO, Drug form: TAB, Daily, Start date: 02/02/12 9:00:00, Duration: 30 day, Stop date: 03/02/12 9:00:00 [facility] pravastatin 2012-02-02 02:00:00 No Rica Sarker 80 mg, 4 tab, Route: PO, Drug form: TAB, Bedtime, Start date: 02/01/12 21:00:00, Duration: 30 day, Stop date: 03/01/12 21:[facility]00 [facility] 02:00:00 No Rica Sarker 40 unit, 0.4 mL, Route: SUB-Q, Drug form: INJ, Bedtime, Start date: 02/01/12 21:00:00, Duration: 30 day, Stop date: 03/01/12 21:00:00 [facility] jero carvedilol 2012-02-02 02:00:00 No Enoch Camejo Joseph 6.25 mg, 2 tab, Route: PO, Drug form: TAB, Q12H, Start date: 02/01/12 21:00:00, Duration: 30 day, Stop date: 03/02/12 9:00:00 Bren Camarena clonidine 0.2 mg oral tablet 2012-02-01 23:00:00 No Chelsey za Sarker 0.2 mg, 1 tab, Route: PO, Drug form: TAB, [id number], Start date: 02/01/12 18:00:00, Duration: 30 day, Stop date: 03/02/12 6:00:00 [facility] Jessicaol [place] 2012-02-01 22:00:00 No Rica Sarker 4 mg, 1 cap, Route: PO, Drug form: CAP, QPM, Start date: 02/01/12 17:00:00, Duration: 30 day, Stop date: 03/01/12 17:00:00 [facility] riboflavin 2012-02-01 22:00:00 No Rica Sarker 100 mg, 1 tab, Route: PO, Drug form: TAB, Daily, Start date: 02/01/12 17:00:00, Duration: 30 day, Stop date: 03/02/12 9:00:00 [facility] Vitamin B6 2012-02-01 22:00:00 No Rica Sarker 100 mg, 1 tab, Route: PO, Drug form: TAB, Daily, Start date: 02/01/12 17:00:00, Duration: 30 day, Stop date: 03/02/12 9:00:00 [facility] folic acid 2012-02-01 22:00:00 No Rica Sarker 1 mg, 1 tab, Route: PO, Drug form: TAB, Daily, Start date: 02/01/12 17:00:00, Duration: 30 day, Stop date: 03/02/12 9:00:00 [facility] Vitamin B12 2012-02-01 22:00:00 No Rica Sarker 1,000 microgram, 2 tab, Route: PO, Drug form: TAB, Daily, Start date: 02/01/12 17:00:00, Duration: 30 day, Stop date: 03/02/12 9:00:00 Angelitokalyn hollis [place] PhosLo Gelcap 2012-02-01 22:00:00 No Rica Sarker 2,001 mg, 3 cap, Route: PO, Drug form: CAP, TID-Meals, Start date: 02/01/12 17:00:00, Duration: 30 day, Stop date: 03/02/12 12:00:00 [facility] [place] ferrous sulfate 2012-02-01 21:30:00 No Rica Sarker 325 mg, 1 tab, Route: PO, Drug form: ECTAB, TID-Before Meals, Start date: 02/01/12 16:30:00, Duration: 30 day, Stop date: 03/02/12 11:30:00 [facility] gemfibrozil 2012-02-01 21:30:00 No Rica Sarker 600 mg, 1 tab, Route: PO, Drug form: TAB, BID-Before Meals, Start date: 02/01/12 16:30:00, Duration: 30 day, Stop date: 03/02/12 7:30:00 Angelito Camarena Dextrose 50% in Water IV 2012-02-01 20:23:00 No Rica S arker 50 mL, Route: IVP, Start date: 02/01/12 15:23:00, Duration: 30 day, Stop date: 03/02/12 15:22:00, PRN Blood Glucose Results Mem kanaal [place] glucagon 2012-02-01 20:23:00 No Rica Sarker 1 mg, Route: IM, Drug form: PDR/INJ, PRN, PRN Blood Glucose Results, Start date: 02/01/12 15:23:00, Duration: 30 day, Stop date: 03/02/12 15:22:00 [facility] NovoLog FlexPen 2012-02-01 20:23:00 No Rica Sarker 6 unit, 0.06 mL, Route: SUB-Q, Drug form: SOLN, Sliding Scale, PRN Blood Glucose Results, Start date: 02/01/12 15:23:00, Duration: 30 day, Stop date: 03/02/12 15:22:00 [facility] NovoLog FlexPen 2012-02-01 20:22:00 No Rica Sarker 1 unit, 0.01 mL, Route: SUB-Q, Drug form: SOLN, Sliding Scale, PRN Blood Glucose Results, Start date: 02/01/12 15:22:00, Duration: 30 day, Stop date: 03/02/12 15:21:00 [facility] gabapentin 300 mg oral capsule 2012-02-01 20:00:00 No A ziza Sarker 300 mg, 1 cap, Route: PO, Drug form: CAP, Q12H, Start date: 02/01/12 15:00:00, Duration: 30 day, Stop date: 03/02/12 9:00:00 [facility] furosemide 40 mg oral tablet 2012-02-01 20:00:00 No Chelsey za Sarker 40 mg, 1 tab, Route: PO, Drug form: TAB, Daily, Start date: 02/01/12 15:00:00, Duration: 30 day, Stop date: 03/02/12 9:00:00 [facility] diltiazem 2012-02-01 20:00:00 No Rica Sarker 240 mg, 1 cap, Route: PO, Drug form: ERCAP, Daily, Start date: 02/01/12 15:00:00, Duration: 30 day, Stop date: 03/02/12 9:00:00 [facility] Vitamin C 2012-02-01 20:00:00 No Rica Sarker 500 mg, 1 tab, Route: PO, Drug form: TAB, Daily, Start date: 02/01/12 15:00:00, Duration: 30 day, Stop date: 03/02/12 9:00:00 [facility] Dilaudid 2012-02-01 16:18:00 No Fran Power Agraharkar 2 mg, 1 mL, Route: IV, Drug form: INJ, Q4H, PRN Pain, Start date: 02/01/12 11:18:00, Duration: 30 day, Stop date: 03/02/12 11:17:00 [facility] belladonna-opium 16.2 mg-60 mg rectal suppository 15:07:00 No Edinson Dominique 1 supp, [place], Drug Form: SUPP, Q12H, PRN Spasm, Start date: 02/01/12 10:07:00, Duration: 30 day, Stop date: 03/02/12 10:06:00 [facility] clonidine 2012-02-01 05:56:00 No Octavio Mauro 0.1 mg, 1 tab, Route: PO, Drug form: TAB, Q6H, PRN Elevated BP, Start date: 02/01/12 0:56:00, Duration: 30 day, Stop date: 03/02/12 0:55:00 [facility] morphine Sulfate 2012-02-01 05:56:00 No Octavio Mauro 4 mg, 2 mL, Route: IVP, Drug form: INJ, Q3H, PRN Pain Score 7-10, Start date: 02/01/12 0:56:00, Duration: 30 day, Stop date: 03/02/12 0:55:00 [facility]igue erythromycin ophthalmic 0.5% ointment 2012-02-01 04:04:06 Yes Taso Mougouris 0.5 inch, LEFT EYE, QID, 1 tube, Substit [place] Allowed Brennon Camarena Cipro 2012-02-01 03:33:00 No Michelet Pena 250 mg, 1 tab, Route: PO, Drug form: TAB, ONCE, Start date: 01/31/12 22:33:00, Stop date: 01/31/12 22:33:00 [facility] [place] morphine Sulfate 2012-02-01 02:40:00 No Michelet Juancarlos Pena 6 mg, 3 mL, Route: IVP, Drug form: INJ, ONCE, Priority: STAT, Start date: 01/31/12 21:40:00, Stop date: 01/31/12 21:40:00 M [facility] [place] morphine Sulfate 2012-02-01 00:06:00 No Ailynrandi Pena 8 mg, 4 mL, Route: IVP, Drug form: INJ, ONCE, Priority: STAT, Start date: 01/31/12 19:06:00, Stop date: 01/31/12 19:06:00 [facility] mg oral tablet 2012-01-29 16:01:10 Yes Tas o Mougouris 500 mg, 1 tab, PO, Daily, 30 tab, Substitution Allowed, TAB [facility] PhosLo Gelcap 667 mg oral capsule 2012-01-29 16:01:00 Ye s Taso Mougouris 2,001 mg, 3 cap, PO, TID-Meals, 90 cap, Substitution A llowed, CAP [facility] carvedilol 3.125 mg oral tablet 2012-01-29 16:00:53 Yes Taso Mougouris 6.25 mg, 2 tab, PO, Q12H, 60 tab, Substitution Allowed, TAB [facility] Cipro 250 mg oral tablet 2012-01-29 16:00:44 Yes Taso Mo ugouris 250 mg, 1 tab, PO, [id number], 7 tab, Substitution Allowed, TAB [facility] Vitamin B12 500 mcg oral tablet 2012-01-29 16:00:37 Yes Taso Mougouris 1,000 microgram, 2 tab, PO, Daily, 30 tab, Substitution Allowed, TAB [facility] ferrous sulfate 325 mg oral enteric coated tablet 16:00:31 Yes Taso Mougouris 325 mg, 1 tab, P O, TID-Before Meals, 90 tab, Substitution Allowed, ECTAB [facility] folic acid 1 mg oral tablet 2012-01-29 16:00:23 Yes Taso Mougouris 1 mg, 1 tab, PO, Daily, 30 tab, Substitution Allowed, TAB [facility] Ditropan XL 5 mg oral tablet, extended release 2012-01-29 16:00:00 Yes Taso Mougouris 15 mg, 3 tab, PO, Daily, 30 tab, Sub stitution Allowed, ERTAB [facility] Vitamin B6 100 mg oral tablet 2012-01-29 15:59:50 Yes Ta so Mougouris 100 mg, 1 tab, PO, Daily, 30 tab, Substitution Allowed, TAB [facility] riboflavin 100 mg oral tablet 2012-01-29 15:59:43 Yes Ta so Mougouris 100 mg, 1 tab, PO, Daily, 30 tab, Substitution Allowed, TAB [facility] Detrol [place] 4 mg oral capsule, extended release 2012-01-29 1 5:59:32 Yes Taso Mougouris 4 mg, 1 cap, PO, Daily, 30 cap, Substitu tion Allowed [facility] Detrol LA 2012-01-27 14:28:00 No Edinson Wat[place]angatt 4 mg, 1 cap, Route: PO, Drug form: CAP, Daily, Start date: 01/27/12 9:28:00, Duration: 30 day, Stop date: 02/26/12 9:00:00 Bren frankel-opium 16.2 mg-60 mg rectal suppository 01:45:00 No Edinson Watermangatt 1 supp, [place], Drug Form: SUPP, ONCE, Start date: 01/26/12 20:45:00, Stop date: 01/26/12 20:45:00 Brennon Camarena Ativan 2012-01-25 03:00:00 No Jeannine Forte Crystal 1 mg, 0.5 mL, Route: IV, Drug form: INJ, ONCALL, Start date: 01/24/12 22:00:00, Duration: 1 doses or times, Stop date: 01/25/12 0:00:00 [facility] 02[facility]:00 No Callum Arguellestannerduran 17 gm, 1 pkt, Route: PO, Drug form: PWDR, Bedtime, Start date: 01/24/12 21:00:00, Duration: 30 day, Stop date: 02/22/12 21:00:00 [facility] monica Doughertyro 2012-01-24 17:00:00 No Nihal Essa Abdulla 250 mg, 1 tab, Route: PO, Drug form: TAB, [id number], Start date: 01/24/12 12:00:00, Duration: 30 day, Stop date: 02/21/12 12:00:00 [facility] albuterol 0.083% inhalation solution 2012-01-24 16:43:00 No Nihal Essa Abdulla 2.49 mg, 3 mL, R oute: NEB, Drug form: SOLN, RQ6H, PRN Wheezing, PRN wheezing or SOB, Start date: 01/24/12 11:43:00, Duration: 30 day, Stop date: 02/23/12 11:42:00 [facility] Ditropan XL 2012-01-24 14:00:00 No Bob Guerrero 15 mg, 3 tab, Route: PO, Drug form: ERTAB, Daily, Start date: 01/24/12 9:00:00, Duration: 30 day, Stop date: 02/22/12 9:00:00 [facility] 2012-[facility] 22:20:00 No Sahba Q Bobby 17 gm, 1 pkt, Route: PO, Drug form: PWDR, ONCE, Start date: 01/23/12 17:20:00, Stop date: 01/23/12 17:20:00 [facility] Senokot 2012-01-23 21:59:00 No Sahba Q Bobby 17.2 mg, 2 tab, Route: PO, Drug form: TAB, Bedtime, PRN Constipation, Start date: 01/23/12 16:59:00, Duration: 30 day, Stop date: 02/22/12 16:58:00 [facility] Dilaudid 2012-01-23 21:58:00 No Sahba Q Bobby 2 mg, 1 mL, Route: IVP, Drug form: INJ, Q3H, PRN Pain, Start date: 01/23/12 16:58:00, Duration: 30 day, Stop date: 02/22/12 16:57:00 [facility] cefepime 2012-01-22 18:00:00 No Taso Mougouris 1 gm, Route: IVPB, [id number], Start date: 01/22/12 13:00:00, Duration: 30 day, Stop date: 02/21/12 1:00:00 [facility] Maxipime 2012-01-22 18:00:00 No Taso Mougouris 1 gm, Route: IVPB, [id number], Start date: 01/22/12 13:00:00, Duration: 30 day, Stop date: 02/20/12 13:00:00 [facility] Procrit 2012-01-20 14:00:00 No Sahba Q Bobby 10,000 unit, 1 mL, Route: SUB-Q, Drug form: INJ, [id number], Start date: 01/20/12 9:00:00, Duration: 30 day, Stop date: 02/17/12 9:00:00 [facility] ferrous sulfate 2012-01-20 13:00:00 No Sahba Q Bobby 325 mg, 1 tab, Route: PO, Drug form: ECTAB, TID-Before Meals, Start date: 01/20/12 8:00:00, Duration: 30 day, Stop date: 02/18/12 16:30:00 [facility] Venofer 2012-01-20 01:00:00 No Sahba Q Bobby 200 mg, Route: IV, Drug form: INJ, Daily, Start date: 01/19/12 20:00:00, Duration: 4 day, Stop date: 01/22/12 20:00:00 [facility] Lasix 2012-01-14 22:50:00 No Sahba Q Bobby 20 mg, 2 mL, Route: IVP, Drug form: INJ, PRN, PRN Blood Transfusion, Start date: 01/14/12 17:50:00, Duration: 2 doses or times, Stop date: Limited # of times [facility] Colace 100 mg oral capsule 2012-01-14 22:00:00 No Taso Mougouris 100 mg, 1 cap, Route: PO, Drug form: CAP, BID, Start date: 01/14/12 17:00:00, Duration: 30 day, Stop date: 02/13/12 9:00:00 [facility] Dulcolax Laxative 2012-01-14 19:23:00 No Taso Mougouris 10 mg, 1 supp, Route: [place], Drug form: SUPP, Daily, PRN Constipation, Start date: 01/14/12 14:23:00, Stop date: 02/13/12 20:00:00 [facility] Enema 2012-01-14 19:23:00 No Taso Mougouris 133 ml, Route: [place], ONCE, Start date: 01/14/12 14:23:00, Stop date: 01/14/12 14:23:00 [facility] lactulose 2012-01-14 19:23:00 No Taso Mougouris 20 gm, 30 ml, Route: PO, Drug Form: SYRP, Daily, PRN Constipation, Start date: 01/14/12 14:23:00, Duration: 30 day, Stop date: 02/13/12 14:22:00 [facility] Lasix 2012-01-14 18:49:00 No Sahba Q Bobby 20 mg, 2 mL, Route: IV, Drug form: INJ, ONCALL, PRN Blood Transfusion, Start date: 01/14/12 13:49:00, Duration: 24 hr, Stop date: 01/15/12 13:48:00 [facility] Sodium Chloride 0.9% IV 2012-01-14 18:48:00 No Sahba Q Bobby IV, 30 ml/hr, PRN, PRN Blood Transfusion, Start date: 01/14/12 13:48:00, Duration: 24, 250 ml [facility] Lasix 2012-01-14 14:45:00 No Sahba Q Bobby 20 mg, 2 mL, Route: IV, Drug form: INJ, After Transfusion, PRN Blood Transfusion, Start date: 01/14/12 9:45:00, Duration: 1 day, Stop date: 01/15/12 9:44:00 [facility] belladonna-opium 16.2 mg-60 mg rectal suppository 14:44:00 No Edinson Dominique 1 supp, [place], Drug Form: SUPP, Q6H, PRN Spasm, Start date: 01/14/12 9:44:00, Stop date: 01/27/12 20:00:00 [facility] PhosLo Gelcap 2012-01-11 13:00:00 No Enoch Joseph 2,001 mg, 3 cap, Route: PO, Drug form: CAP, TID-Meals, with meals, Start date: 01/11/12 8:00:00, Duration: 30 day, Stop date: 02/09/12 17:00:00 [facility] furosemide 100 mg + Sodium Chloride 0.9% IV 90 mL 01:00:00 No Enoch Joseph 90 mL, Rate: 10 ml/hr, Infuse over: 10 hr, Route: IV, Dosing Weight 100.227 kg, Total Volume: 100, Start date: 01/10/12 20:00:00, Duration: 30 day, Stop date: 02/09/12 19:59:00 [facility] Lasix 2012-01-10 23:30:00 No Enoch Joseph 80 mg, 8 mL, Route: IVP, Drug form: INJ, ONCE, Start date: 01/10/12 18:30:00, Stop date: 01/10/12 18:30:00 [facility] sodium bicarbonate 8.4% 2012-01-10 23:00:00 No Enoch Arringtona Rajesh 50 mEq, 50 mL, Route: IV, Drug Form: INJ, ONCE, Start date: 01/10/12 18:00:00, Stop date: 01/10/12 18:00:00 [facility] Kayexalate 2012-01-10 15:39:00 No Enoch Joseph 30 gm, 120 mL, Route: PO, Drug form: SUSP, ONCE, Start date: 01/10/12 10:39:00, Stop date: 01/10/12 10:39:00 [facility] Levemir 2012-01-10 02:00:00 No Rica Sarker 44 unit, 0.44 mL, Route: SUB-Q, Drug form: INJ, Bedtime, Start date: 01/09/12 21:00:00, Duration: 30 day, Stop date: 02/07/12 21:00:00 [facility] sodium bicarbonate 325 mg oral tablet 2012-01-09 22:00:00 No Enoch Ballda Joseph 650 mg, 1 tab, R oute: PO, Drug Form: TAB, BID, Start date: 01/09/12 17:00:00, Duration: 30 day, Stop date: 02/08/12 9:00:00 [facility] calcium gluconate 2012-01-09 21:34:00 No Rica Tyroneker 1,000 mg, 10 mL, Route: IVPB, ONCE, Start date: 01/09/12 16:34:00, Stop date: 01/09/12 16:34:00 [facility] Vitamin C 2012-01-09 14:00:00 No Sahba Q Bobby 500 mg, 1 tab, Route: PO, Drug form: TAB, Daily, Start date: 01/09/12 9:00:00, Duration: 30 day, Stop date: 02/07/12 9:00:00 [facility] folic acid 1 mg oral tablet 2012-01-09 14:00:00 No Sahb a Q Bobby 1 mg, 1 tab, Route: PO, Drug form: TAB, Daily, Start date: 01/09/12 9:00:00, Duration: 30 day, Stop date: 02/07/12 9:00:00 [facility] Vitamin B12 2012-01-09 14:00:00 No Sahba Q Bobby 1,000 microgram, 2 tab, Route: PO, Drug form: TAB, Daily, Start date: 01/09/12 9:00:00, Duration: 30 day, Stop date: 02/07/12 9:00:00 Angelito hollis [place] riboflavin 2012-01-09 14:00:00 No Sahba Q Bobby 100 mg, 1 tab, Route: PO, Drug form: TAB, Daily, Start date: 01/09/12 9:00:00, Duration: 30 day, Stop date: 02/07/12 9:00:00 [facility] Vitamin B6 2012-01-09 14:00:00 No Sahba Q Bobby 100 mg, 1 tab, Route: PO, Drug form: TAB, Daily, Start date: 01/09/12 9:00:00, Duration: 30 day, Stop date: 02/07/12 9:00:00 [facility] Lasix 2012-01-09 02:00:00 No Ramdas Nell Joseph 80 mg, 8 mL, Route: IVP, Drug form: INJ, Q12H, Start date: 01/08/12 21:00:00, Duration: 30 day, Stop date: 02/07/12 9:00:00 [facility] ferrous sulfate 2012-01-08 21:30:00 No Sahba Q Bobby 325 mg, 1 tab, Route: PO, Drug form: ECTAB, TID-Before Meals, Start date: 01/08/12 16:30:00, Duration: 30 day, Stop date: 02/07/12 11:30:00 [facility] acetaminophen-hydrocodone 325 mg-5 mg oral tablet 20:49:00 No Yanick Gotti 2 tab, Rou te: PO, Drug Form: TAB, Q6H, PRN Pain, Start date: 01/08/12 15:49:00, Duration: 30 day, Stop date: 02/07/12 15:48:00 [facility] PhosLo Gelcap 2012-01-08 17:00:00 No Ramdaroxann Ballda Joseph 667 mg, 1 cap, Route: PO, Drug form: CAP, TID-Meals, with meals, Start date: 01/08/12 12:00:00, Duration: 30 day, Stop date: 02/07/12 8:00:00 [facility] Lasix 2012-01-08 02:00:00 No Ramdas Nell Joseph 40 mg, 4 mL, Route: IVP, Drug form: INJ, Q12H, Start date: 01/07/12 21:00:00, Duration: 30 day, Stop date: 02/06/12 9:00:00 [facility] Dextrose 50% Syringe 2012-01-07 17:05:00 No Enoch Balld dai Joseph 12.5 gm, 25 mL, Route: IVP, Drug Form: INJ, PRN, PRN Blood Glucose Results, Start date: 01/07/12 12:05:00, Duration: 30 day, Stop date: 02/06/12 12:04:00 [facility] glucagon 2012-01-07 17:05:00 No Ramdas Nell Joseph 1 mg, Route: IM, Drug form: PDR/INJ, PRN, PRN Blood Glucose Results, Start date: 01/07/12 12:05:00, Duration: 30 day, Stop date: 02/06/12 12:04:00 [facility] insulin aspart 2012-01-07 17:05:00 No Ramdas Nell Kuma r 10 unit, 0.1 mL, Route: SUB-Q, Drug form: SOLN, Sliding Scale, PRN Blood Glucose Results, BG > = 350 mg/dl;, Start date: 01/07/12 12:05:00, Stop date: 02/06/12 12:04:00 [facility] Lasix 2012-01-07 16:36:00 No Ramdas Nell Joseph 40 mg, 4 mL, Route: IV, Drug form: INJ, ONCE, Priority: STAT, Start date: 01/07/12 11:36:00, Stop date: 01/07/12 11:36:00 [facility] magnesium sulfate 2012-01-05 23:26:00 No Ramdas Nell K umar 2 gm, 50 mL, Route: IVPB, Drug form: INJ, ONCE, Total dose = 2 gm, Start date: 01/05/12 18:26:00, Duration: 1 doses or times, Stop date: 01/05/12 18:26:00 [facility] Protonix 2012-01-05 16:56:00 No Joseluis Van Lisa 40 mg, 1 tab, Route: PO, Drug form: ECTAB, Before Dinner, Start date: 01/05/12 11:56:00, Duration: 30 day, Stop date: 02/03/12 16:30:00 Shahzad pabret [place] calcium chloride 2012-01-05 13:26:00 No Ramdas Nell Ku mar 2,000 mg, 20 mL, Route: IV, Drug form: INJ, ONCE, Start date: 01/05/12 8:26:00, Stop date: 01/05/12 8:26:00 [facility] carvedilol 2012-01-05 02:00:00 No Enoch Joseph 6.25 mg, 2 tab, Route: PO, Drug form: TAB, Q12H, Start date: 01/04/12 21:00:00, Duration: 30 day, Stop date: 02/03/12 9:00:00 Bren power [place] lactulose 10 g/15 mL oral syrup 2012-01-04 21:24:00 No Joseluis Van Lisa 20 gm, 30 mL, Route: PO, Drug Form: SYRP , Daily, PRN Constipation, Start date: 01/04/12 16:24:00, Duration: 30 day, Stop date: 02/03/12 16:23:00 [facility] Lyrica 2012-01-04 18:00:00 No Joseluis Van Lisa 150 mg, 2 cap, Route: PO, Drug form: CAP, TID, Start date: 01/04/12 13:00:00, Duration: 30 day, Stop date: 02/03/12 9:00:00 [facility] Kayexalate 2012-01-04 17:20:00 No Joseluis Van Lisa 15 gm, 60 mL, Route: PO, Drug form: SUSP, ONCE, Start date: 01/04/12 12:20:00, Stop date: 01/04/12 12:20:00 [facility] calcium gluconate 2012-01-04 01:26:00 No Nihal Essa Abd shun 2,000 mg, 20 mL, Route: IV, ONCE, Start date: 01/03/12 20:26:00, Stop date: 01/03/12 20:26:00 [facility] Kayexalate 2012-01-04 01:26:00 No Nihal Essa Abdulla 20 gm, 80 mL, Route: PO, Drug form: SUSP, ONCE, Start date: 01/03/12 20:26:00, Stop date: 01/03/12 20:26:00 [facility] Sodium Chloride 0.9% IV 1,000 mL 2012-01-04 01:25:00 No Enoch Joseph 1,000 mL, Rate: 100 ml/hr, Infuse over: 10 hr, Route: IV, Dosing Weight 100.227 kg, Total Volume: 1,000, Start date: 01/03/12 20:25:00, Duration: 30 day, Stop date: 02/02/12 20:24:00 Francisco Joel acetaminophen-hydrocodone 325 mg-10 mg oral tablet 2011-12 18:40:00 No Mitch Davidson Abdmagalia 1 tab, Route: PO, Drug Form: TAB, ONCE, Start date: 01/02/12 12:40:00, Stop date: 01/02/12 12:40:00 [facility] Fluvirin 2012-01-02 15:00:00 No SYSTEM SYSTEM 0.5 mL, Route: IM, Drug Form: SUSP, Start date: 01/02/12 9:00:00, Stop date: 01/02/12 9:00:00 [facility] calcium gluconate 2012-01-01 17:00:00 No Ramdaroxann Ballda K umar 2,000 mg, 20 mL, Route: IV, ONCE, Start date: 01/01/12 11:00:00, Stop date: 01/01/12 11:00:00 [facility] methadone 2012-01-01 15:00:00 No Basem Hamid 2.5 mg, 2.5 mL, Route: PO, Drug form: SOLN, BID, Start date: 01/01/12 9:00:00, Duration: 30 day, Stop date: 01/30/12 17:00:00 [facility] losartan 2012-01-01 15:00:00 No Ramdas Nell Joseph 100 mg, 2 tab, Route: PO, Drug form: TAB, Daily, Start date: 01/01/12 9:00:00, Duration: 30 day, Stop date: 01/30/12 9:00:00 Bren Camarena Levemir 2012-01-01 15:00:00 No Taso Mougouris 20 unit, 0.2 mL, Route: SUB-Q, Drug form: INJ, Daily, Start date: 01/01/12 9:00:00, Duration: 30 day, Stop date: 01/30/12 9:00:00 [facility] furosemide 40 mg oral tablet 2012-01-01 15:00:00 No Ramdas Nell Joseph 40 mg, 1 tab, Route: PO, Drug form: TAB, Daily, Start date: 01/01/12 9:00:00, Duration: 30 day, Stop date: 01/30/12 9:00:00 [facility] diltiazem 2012-01-01 15:00:00 No Taso Mougouris 240 mg, 1 cap, Route: PO, Drug form: ERCAP, Daily, Start date: 01/01/12 9:00:00, Duration: 30 day, Stop date: 01/30/12 9:00:00 [facility] Sodium Chloride 0.45% IV 1,000 mL 2012-01-01 03:09:00 No Gaxiola Amanda Cardenas 1,000 mL, Rate: 75 ml/hr, In fuse over: 13.3 hr, Route: IV, Total Volume: 1,000, Start date: 12/31/11 21:09:00, Duration: 30 day, Stop date: 01/30/12 21:08:00 [facility] Levemir 2012-01-01 03:00:00 No Rica Quiros 40 unit, 0.4 mL, Route: SUB-Q, Drug form: INJ, Bedtime, Start date: 12/31/11 21:00:00, Duration: 30 day, Stop date: 01/29/12 21:00[facility]00 [facility] 03:00:00 No Joseluis Van Lisa 150 mg, 2 cap, Route: PO, Drug form: CAP, BID, Start date: 12/31/11 21:00:00, Duration: 30 day, Stop date: 01/30/12 17:00:00 [facility] metFORmin 1000 mg oral tablet, extended release 2011-12-31 23:00:00 No Joseluis Van Lisa 1,000 mg, 2 tab, Route: PO, Drug form: ERTAB, BID, Start date: 12/31/11 17:00:00, Duration: 30 day, Stop date: 01/30/12 9:00:00 [facility] pravastatin 2011-12-31 23:00:00 No Taso Mougouris 80 mg, 4 tab, Route: PO, Drug form: TAB, Daily, Start date: 12/31/11 17:00:00, Duration: 30 day, Stop date: 01/29/12 17:00:00 [facility] Pratik bell gemfibrozil 2011-12-31 23:00:00 No Taso Mougouris 600 mg, 1 tab, Route: PO, Drug form: TAB, BID, Start date: 12/31/11 17:00:00, Duration: 30 day, Stop date: 01/30/12 9:00:00 [facility] arabella clonidine 0.2 mg oral tablet 2011-12-31 23:00:00 No Tas o Mougouris 0.2 mg, 1 tab, Route: PO, Drug form: TAB, BID, Start date: 12/31/11 17:00:00, Duration: 30 day, Stop date: 01/30/12 9:00:00 [facility] Migue Neurontin 2011-12-31 22:00:00 No Basem Hamid 300 mg, 1 cap, Route: PO, Drug form: CAP, Q8H, Start date: 12/31/11 16:00:00, Duration: 30 day, Stop date: 01/30/12 8:00:00 [facility] hydrALAZINE 25 mg oral tablet 2011-12-31 19:15:00 No Ramdas Nell Joseph 25 mg, 1 tab, Route: PO, Drug form: TAB, Q6H, PRN Elevated BP, Start date: 12/31/11 13:15:00, Duration: 30 day, Stop date: 01/30/12 13:14:00, systolic blood pressure greater than 180 mm Hg. Vijay petersenbautista Camarena enoxaparin 2011-12-31 18:00:00 No Joseluis Van Lisa 40 mg, 0.4 mL, Route: SUB-Q, Drug form: INJ, [id number], Start date: 12/31/11 12:00:00, Duration: 30 day, Stop date: 01/30/12 0:00:00 [facility] me[place] hydromorphone 2011-12-31 17:55:00 No Gaxiola Amanda Cardenas 1 mg, 1 mL, Route: IVP, Drug form: SOLN, Q3H, PRN Pain, Start date: 12/31/11 11:55:00, Stop date: 01/30/12 11:54:00 [facility] hydromorphone 2011-12-31 17:53:00 No Taso Mougouris 2 mg, 2 mL, Route: IVP, Drug form: SOLN, Q3H, PRN Pain, Start date: 12/31/11 11:53:00, Duration: 30 day, Stop date: 01/30/12 11:52:00 [facility] insulin aspart 2011-12-31 17:30:00 No Ramdaroxann Ballda Kuma r 2 unit, 0.02 mL, Route: SUB-Q, Drug form: SOLN, TID-Before Meals, PRN Blood Glucose Results, Start date: 12/31/11 11:30:00, Duration: 30 day, Stop date: 01/30/12 11:29:00 [facility] Dextrose 50% Syringe 2011-12-31 17:30:00 No Taso Mougou ris 12.5 gm, 25 mL, Route: IVP, Drug Form: INJ, PRN, PRN Blood Glucose Results, Start date: 12/31/11 11:30:00, Duration: 30 day, Stop date: 01/30/12 12:29:00 [facility] glucagon 2011-12-31 17:30:00 No Taso Mougouris 1 mg, Route: IM, Drug form: PDR/INJ, PRN, PRN Blood Glucose Results, Start date: 12/31/11 11:30:00, Duration: 30 day, Stop date: 01/30/12 12:29:00 [facility] Phenergan 2011-12-31 17:29:00 No Taso Mougouris 12.5 mg, 0.5 mL, Route: IVPB, Q4H, PRN Nausea & Vomiting, Start date: 12/31/11 11:29:00, Duration: 30 day, Stop date: 01/30/12 11:28:00 [facility] Saline Flush 0.9% 2011-12-31 17:21:00 No Taso Mougouris 5 ml, Route: IVP, Drug Form: INJ, PRN, PRN Line Flush, Start date: 12/31/11 11:21:00, Duration: 30 day, Stop date: 01/30/12 12:20:00 [facility] docusate 2011-12-31 17:21:00 No Taso Mougouris 100 mg, 1 cap, Route: PO, Drug form: CAP, BID, PRN Constipation, Start date: 12/31/11 11:21:00, Duration: 30 day, Stop date: 01/30/12 11:20:00 [facility] acetaminophen 2011-12-31 17:21:00 No Taso Mougouris 650 mg, 2 tab, Route: PO, Drug form: TAB, Q4H, PRN Pain/Fever, Start date: 12/31/11 11:21:00, Duration: 30 day, Stop date: 01/30/12 11:20:00 [facility] temazepam 2011-12-31 17:21:00 No Taso Mougouris 15 mg, 1 cap, Route: PO, Drug form: CAP, Bedtime, PRN Insomnia, Start date: 12/31/11 11:21:00, Duration: 30 day, Stop date: 01/30/12 11:20:00 [facility] ondansetron 2011-12-31 17:21:00 No Taso Mougouris 4 mg, 2 mL, Route: IVP, Drug form: INJ, Q6H, PRN Nausea & Vomiting, Start date: 12/31/11 11:21:00, Duration: 30 day, Stop date: 01/30/12 11:20:00 [facility] Levemir 100 units/mL subcutaneous solution 2011-12-31 17:1 3:12 Yes Taso Mougouris 40 units, SUB-Q, Bedtime, Substitution A nilda [facility] influenza virus vaccine, inactivated 2011-12-31 15:00:00 No SYSTEM SYSTEM 0.5 mL, Route: IM, Drug Form : SUSP, Start date: 12/31/11 9:00:00, Stop date: 12/31/11 9:00:00 [facility] Kayexalate 2011-12-31 15:00:00 No Enoch Joseph 15 gm, 60 mL, Route: PO, Drug form: SUSP, QID, Start date: 12/31/11 9:00:00, Duration: 30 day, Stop date: 01/29/12 21:00:00 [facility] Dilaudid 2011-12-31 13:55:00 No Taso Mougouris 0.5 mg, 0.5 mL, Route: IV, Drug form: SOLN, Q3H, PRN Pain, 0.5-1mg every 3 hours prn for pain, Start date: 12/31/11 7:55:00, Duration: 30 day, Stop date: 01/30/12 7:54:00 [facility] gabapentin 300 mg oral capsule 2011-12-31 10:05:34 Yes 300 mg, 1 cap, PO, BID, Substitution Allowed [facility] [place] morphine Sulfate 2011-12-31 09:54:00 No Marco Gutierrez Bansa l 4 mg, Route: IV, ONCE, Start date: 12/31/11 3:54:00, Stop date: 12/31/11 3:54:00 [facility] atropine 2011-12-31 09:50:00 No Jonathan Buddhism Jaspreet 0.5 mg, 5 mL, Route: IVP, Drug form: INJ, PRN, PRN Bradycardia, Start date: 12/31/11 3:50:00, Duration: 30 day, Stop date: 01/30/12 4:49:00 [facility] nitroglycerin 0.4 mg sublingual tablet 2011-12-31 09:50:00 No Jonathan Buddhism Jaspreet 0.4 mg, 1 tab, R oute: SL, Drug form: TAB, Q5Min, PRN Chest Pain, Start date: 12/31/11 3:50:00, Duration: 30 day, Stop date: 01/30/12 4:49:00 [facility] Sodium Chloride 0.9% IV 1,000 mL 2011-12-31 09:45:00 No Jonathan Buddhism Jaspreet 1,000 mL, Rate: 125 ml/hr, Infuse over: 8 hr, Route: IV, Total Volume: 1,000, Start date: 12/31/11 3:45:00, Duration: 30 day, Stop date: 01/30/12 3:44:00 [facility] Saline Flush 0.9% 2011-12-31 09:45:00 No Taso Mougouris 5 ml, Route: IVP, Drug Form: INJ, PRN, PRN Line Flush, Start date: 12/31/11 3:45:00, Duration: 30 day, Stop date: 01/30/12 4:44:00 [facility] ondansetron 2011-12-31 09:45:00 No Jonathan mckeon 4 mg, 2 mL, Route: IVP, Drug form: INJ, Q6H, PRN Nausea & Vomiting, Start date: 12/31/11 3:45:00, Duration: 30 day, Stop date: 01/30/12 3:44:00 [facility] morphine Sulfate 2011-12-31 09:45:00 No Octavio Mauro 4 mg, 2 mL, Route: IVP, Drug form: INJ, Q4H, PRN Pain Score 7-10, Start date: 12/31/11 3:45:00, Duration: 30 day, Stop date: 01/30/12 3:44:00 [facility] Zofran 2011-12-31 08:33:00 No Macro Gutierrez Stepan 4 mg, Route: IVP, Drug form: INJ, ONCE, Start date: 12/31/11 2:33:00, Stop date: 12/31/11 2:33:00 [facility] NovoLog 100 units/mL subcutaneous solution 2011-12-31 08:14:57 Yes SUB-Q, Substitution Allowed [facility] netta Levemir 100 units/mL subcutaneous solution 2011-12-31 08:1 4:40 Yes Taso Mougouris 20 units, SUB-Q, Daily, Substitution All owed [facility] gabapentin 300 mg oral capsule 2011-12-31 08:14:04 Yes 300 mg, 1 cap, PO, BID, Substitution Allowed Prafulor omer Camarena metFORmin 1000 mg oral tablet, extended release 2011-12-31 08:13:09 Yes Taso Mougouris 1,000 mg, 1 tab, PO, BID, 60 tab, Substitution Allowed, ERTAB [facility] furosemide 40 mg oral tablet 2011-12-31 08:12:43 Yes Tas o Mougouris 40 mg, 1 tab, PO, Daily, 30 tab, Substitution Allowed, TAB [facility] pravastatin 80 mg oral tablet 2011-12-31 08:11:31 Yes Ta so Mougouris 80 mg, 1 tab, PO, Daily, 30 tab, Substitution Allowed, TAB [facility] losartan 100 mg oral tablet 2011-12-31 08:11:13 No Taso Mougouris 100 mg, 1 tab, PO, Daily, 30 tab, Substitution Allowed, TAB [facility] gemfibrozil 600 mg oral tablet 2011-12-31 08:10:30 Yes T aso Mougouris 600 mg, 1 tab, PO, BID, 60 tab, Substitution Allowed, TAB [facility] diltiazem 240 mg/24 hours oral tablet, extended release 2011-12-31 08:10:13 Yes Taso Mougouris 240 mg, 1 tab , PO, Daily, 30 tab, Substitution Allowed, ERTAB [facility] clonidine 0.2 mg oral tablet 2011-12-31 08:09:49 Yes Tas o Mougouris 0.2 mg, PO, BID, 60 tab, Substitution Allowed [facility] morphine Sulfate 2011-12-31 05:48:00 No Marco Gutierrez Bansa l 4 mg, Route: IVP, ONCE, Start date: 12/30/11 23:48:00, Stop date: 12/30/11 23:48:00 [facility] sodium bicarbonate 8.4% 2011-12-31 04:48:00 No Marco La l Stepan 50 mEq, 50 mL, Route: IVP, Drug Form: INJ, ONCE, STAT, Start date: 12/30/11 22:48:00, Stop date: 12/30/11 22:48:00 [facility] Insulin regular 2011-12-31 04:47:00 No Marco Gutierrez Stepan 10 unit, 0.1 mL, Route: IVP, Drug form: INJ, ONCE, Priority: STAT, Start date: 12/30/11 22:47:00, Stop date: 12/30/11 22:47:00 [facility] d50 syringe 2011-12-31 04:46:00 No Marco Gutierrez Stepan Route: IVP, Drug Form: INJ, ONCE, Start date: 12/30/11 22:46:00, Stop date: 12/30/11 22:46:00 [facility] Kayexalate 2011-12-31 04:45:00 No Marco Gutierrez Stepan 30 gm, 120 mL, Route: PO, Drug form: SUSP, ONCE, Start date: 12/30/11 22:45:00, Stop date: 12/30/11 22:45:00 [facility] morphine Sulfate 2011-12-31 02:44:00 No Marco Gutierrez Bansa l 4 mg, Route: IVP, ONCE, Priority: STAT, Start date: 12/30/11 20:44:00, Stop date: 12/30/11 20:44:00 [facility] Zofran 2011-12-31 02:44:00 No Marco Gutierrez Stepan 4 mg, Route: IVP, Drug form: INJ, ONCE, Priority: STAT, Start date: 12/30/11 20:44:00, Stop date: 12/30/11 20:44:00 [facility] Amlodipine Besylate/Benazepril (Amlodipine-Benazepril 2.5-10) 1 Each Capsule Amlodipine Besylate/Benazepril (Amlodipine-Benazepril 2.5-10) 1 Each Capsule Yes Daily [facility] Calcium Acetate 667 Mg Tablet Calcium Acetate 667 Mg Tablet Yes 667 Three Times A Day [facility] Carvedilol 3.125 Mg Tablet Carvedilol 3.125 Mg Tablet Yes 3.125 Twice A Day [facility] Clopidogrel Bisulfate (Plavix) 75 Mg Tablet Clopidogre l Bisulfate (Plavix) 75 Mg Tablet Yes 75 Daily [facility] Divalproex Sodium (Depakote Er) 500 Mg [id number] Diva lproex Sodium (Depakote Er) 500 Mg [id number] Yes 1000 Twice A Day [facility] Duloxetine Hcl (Cymbalta) 30 Mg Capsule. Duloxetine Hcl (Cymbalta) 30 Mg Capsule.dr Garcia 30 Twice A Day [facility] Esomeprazole Magnesium (Nexium) 40 Mg Capsule. Esome prazole Magnesium (Nexium) 40 Mg Capsule.dr Garcia 20 Daily I [facility] Ezetimibe (Zetia) 10 Mg Tablet Ezetimibe (Zetia) 10 Mg Tablet Yes 10 Daily [facility] Gemfibrozil 600 Mg Tablet Gemfibrozil 600 Mg Tablet Yes 300 Daily [facility] Insulin Aspart (Novolog) 100 Units/1 Ml Inj Insulin As part (Novolog) 100 Units/1 Ml Inj Yes 26 Before Meals And At Bedtime [facility] Insulin Detemir (Levemir) 100 Unit/1 Ml Vial Insulin D etemir (Levemir) 100 Unit/1 Ml Vial Yes [address] [facility] Insulin Detemir (Levemir) 100 Unit/1 Ml Vial Insulin D etemir (Levemir) 100 Unit/1 Ml Vial Yes 60 Bedtime [facility] Lisinopril 10 Mg Tablet Lisinopril 10 Mg Tablet Yes 10 Daily [facility] Midodrine Hcl 2.5 Mg Tablet Midodrine Hcl 2.5 Mg Tablet Yes 5 -- [facility] Nortriptyline Hcl 10 Mg Cap Nortriptyline Hcl 10 Mg Cap Yes 20 Bedtime [facility] Omeprazole 40 Mg Capsule. Omeprazole 40 Mg Capsule. Yes 20 Daily [facility] Pregabalin (Lyrica) 75 Mg Cap Pregabalin (Lyrica) 75 Mg Cap Yes 150 Three Times A Day [facility] Ropinirole Hcl 0.25 Mg Tablet Ropinirole Hcl 0.25 Mg Tablet Yes .25 Three Times A Day [facility] Sevelamer Carbonate (Renvela) 0.8 Gm Powd.pack Sevelam er Carbonate (Renvela) 0.8 Gm Powd.pack Yes 2400 Three Times A Day [facility] Simvastatin 20 Mg Tablet Simvastatin 20 Mg Tablet Yes 10 Today At 9:00PM [facility] Sumatriptan Succinate 100 Mg Tablet Sumatriptan Succinate 100 Mg Tabl et Yes 100 As Needed [facility] Acetaminophen With Codeine (Tylenol With Codeine #3 Tablet) 1 Each Tablet, 300 Mg Oral Acetaminophen With Codeine (Tylenol With Codeine #3 Tablet) 1 Each Tablet, 300 Mg Oral 2018-02-15 00:00:00 No 300 Every 4 Hours as needed for Pain [facility] Calcium Citrate (Calcitrate) 200 Mg Tablet, 2000 Mg Or al Calcium Citrate (Calcitrate) 200 Mg Tablet, 2000 Mg Oral 2018-02-15 00:00:00 No 2000 Three Times A Day [facility] Cyclobenzaprine Hcl 10 Mg Tablet, 5 Mg Oral Cyclobenza nadine Hcl 10 Mg Tablet, 5 Mg Oral 2018-02-15 00:00:00 No 5 Three Times A Da y [facility] Duloxetine Hcl (Cymbalta) 20 Mg Capcr, 30 Mg Oral Dulo xetine Hcl (Cymbalta) 20 Mg Capcr, 30 Mg Oral 2018-02-15 00:00:00 No 30 Twi ce A Day [facility] Labetalol Hcl 100 Mg Tablet, 200 Mg Oral Labetalol Hcl 100 Mg Tablet, 200 Mg Oral 2018-02-15 00:00:00 No 200 Twice A Day [facility] Tramadol Hcl (Ultram) 50 Mg Tablet, 50 Mg Oral Tramado l Hcl (Ultram) 50 Mg Tablet, 50 Mg Oral 2018-02-15 00:00:00 No 50 Every 4 Hours as needed for Pain [facility] Famotidine (Pepcid) 20 Mg Tablet, 40 Mg Oral Famotidin e (Pepcid) 20 Mg Tablet, 40 Mg Oral 2017-12-22 00:00:00 No 40 Daily [facility] Folic Acid/Cyanocob/Pyridoxine (Nephro-Melodie Tablet) 1 Ea Tab, 1 Each Oral Folic Acid/Cyanocob/Pyridoxine (Nephro-Melodie Tablet) 1 Ea Tab, 1 Each Oral 2017-12-22 00:00:00 No 1 Daily [facility] Gabapentin 300 Mg Capsule, 300 Mg Oral Gabapentin 300 Mg Capsule , 300 Mg Oral 2017-12-22 00:00:00 No 300 Twice A Day [facility] Insuln Asp Prt/Insulin Aspart (Novolog M ix 70-30 Flexpen Syrn) 100 Unit/1 Ml Insuln.pen, 26 UnitSubcutaneously Insuln Asp Prt/Insulin Aspart (Novolog M ix 70- 30 Flexpen Syrn) 100 Unit/1 Ml Insuln.pen, 26 UnitSubcutaneously 2017-12-22 00:00:00 No 26 Three Times A Day [facility] Lisinopril 10 Mg Tablet, 10 Mg Oral Lisinopril 10 Mg Tablet, 10 Mg Oral 2017-12-22 00:00:00 No 10 Daily [facility] Midodrine Hcl 2.5 Mg Tablet, 10 Mg Oral Midodrine Hcl 2.5 Mg Tablet, 10 Mg Oral 2017-12-22 00:00:00 No 10 Daily [facility] Pregabalin (Lyrica) 75 Mg Cap, 75 Mg Oral Pregabalin ( Lyrica) 75 Mg Cap, 75 Mg Oral 2017-12-22 00:00:00 No 75 Daily [facility] Promethazine Hcl 25 Mg Tablet, 0.5 Mg Oral Promethazin e Hcl 25 Mg Tablet, 0.5 Mg Oral 2017-12-22 00:00:00 No .5 Every 4 Hours as n eeded for Nausea [facility] Saccharomyces Boulardii (Florastor) 250 Mg Capsule, 25 0 Mg Oral Saccharomyces Boulardii (Florastor) 250 Mg Capsule, 250 Mg Oral 2017-12-22 00:00:00 No 250 Twice A Day [facility] Sodium Bicarbonate 650 Mg Tablet, 325 Mg Oral Sodium B icarbonate 650 Mg Tablet, 325 Mg Oral 2017-12-22 00:00:00 No 325 Three Times A Day [facility] Sumatriptan Succinate 25 Mg Tablet, 25 Mg Oral Sumatri ptan Succinate 25 Mg Tablet, 25 Mg Oral 2017-12-22 00:00:00 No 25 Daily [facility] Calcium Acetate (Phoslo) 667 Mg Cap, 3 Tab Oral Calciu m Acetate (Phoslo) 667 Mg Cap, 3 Tab Oral 2017-06-21 00:00:00 No 3 Daily At 1700 [facility] Carvedilol 3.125 Mg Tablet, 3.125 Mg Oral Carvedilol 3 .125 Mg Tablet, 3.125 Mg Oral 2017-06-21 00:00:00 No 3.125 Twice A Day [facility] Cholecalciferol (Vitamin D3) (Vitamin D-3) 2,000 Unit Capsule, 2000 U Oral Cholecalciferol (Vitamin D3) (Vitamin D-3) 2,000 Unit Capsule, 2000 U Oral 2017-06-21 00:00:00 No 2000 Daily [facility] Clopidogrel Bisulfate (Clopidogrel) 75 Mg Tablet, 75 M g Oral Clopidogrel Bisulfate (Clopidogrel) 75 Mg Tablet, 75 Mg Oral 2017-06-21 00:00:00 No 75 Daily [facility] Cyclobenzaprine Hcl 10 Mg Tablet, 5 Mg Oral Cyclobenza nadine Hcl 10 Mg Tablet, 5 Mg Oral 2017-06-21 00:00:00 No 5 Ever y 8 Hours as needed for Muscle Spasms [facility] Dicyclomine Hcl 10 Mg Capsule, 5 Mg Oral Dicyclomine H cl 10 Mg Capsule, 5 Mg Oral 2017-06-21 00:00:00 No 5 Ever y 8 Hours as needed for Abdominal Pain [facility] Divalproex Sodium (Divalproex Sodium Er) 500 Mg Tab.er .24h, 500 Mg Oral Divalproex Sodium (Divalproex Sodium Er) 500 Mg Tab.er.24h, 500 Mg Oral 2017-06-21 00:00:00 No 500 Bedtime [facility] Duloxetine Hcl (Cymbalta) 20 Mg Capcr, 20 Mg Oral Dulo xetine Hcl (Cymbalta) 20 Mg Capcr, 20 Mg Oral 2017-06-21 00:00:00 No 20 Bed time [facility] Folic Acid/Cyanocob/Pyridoxine (Nephro-Melodie Tablet) 1 Ea Tab, 1 Each Oral Folic Acid/Cyanocob/Pyridoxine (Nephro-Melodie Tablet) 1 Ea Tab, 1 Each Oral 2017-06-21 00:00:00 No 1 Daily [facility] Folic Acid/Cyanocob/Pyridoxine (Nephro-Melodie Tablet) 1 Ea Tab, 1 Each Oral Folic Acid/Cyanocob/Pyridoxine (Nephro-Melodie Tablet) 1 Ea Tab, 1 Each Oral 2017-06-21 00:00:00 No 1 Daily [facility] Gabapentin 300 Mg Capsule, 300 Mg Oral Gabapentin 300 Mg Capsule , 300 Mg Oral 2017-06-21 00:00:00 No 300 Twice A Day [facility] Insulin Detemir (Levemir) 100 Unit/1 Ml Vial, 10 Units Subcutaneously Insulin Detemir (Levemir) 100 Unit/1 Ml Vial, 10 Units Subcutaneously 2017-06-21 00:00:00 No 10 Am [facility] Insulin Human Isophan/Regular (Novolin 7 0-30 100 Unit/Ml Vial) 100 Units/Ml Ml, 26 Units Sub-Q Insulin Human Isophan/Regular (Novolin 7 0-30 100 Unit/Ml Vial) 100 Units/Ml Ml, 26 Units Sub-Q 2017-06-21 00:00:00 No 26 Three Times Daily With Meals [facility] Lisinopril 10 Mg Tablet, 20 Mg Oral Lisinopril 10 Mg Tablet, 20 Mg Oral 2017-06-21 00:00:00 No 20 Daily [facility] Midodrine Hcl 2.5 Mg Tablet, 10 Mg Oral Midodrine Hcl 2.5 Mg Tablet, 10 Mg Oral 2017-06-21 00:00:00 No 10 During Dialysis [facility] Promethazine Hcl 12.5 Mg Tablet, 12.5 Mg Oral Prometha zine Hcl 12.5 Mg Tablet, 12.5 Mg Oral 2017-06-21 00:00:00 No 12.5 Every 8 Hours as needed for Nausea [facility] Ropinirole Hcl 12 Mg Tab.er.24h, 25 Mg Oral Ropinirole Hcl 12 Mg Tab.er.24h, 25 Mg Oral 2017-06-21 00:00:00 No 25 Three Times A Da y [facility] Sevelamer Hcl (Renvela) 800 Mg Tab, 800 Mg Oral Sevela karine Hcl (Renvela) 800 Mg Tab, 800 Mg Oral 2017-06-21 00:00:00 No 800 Three Times Daily With Meals [facility] Simvastatin 10 Mg Tablet, 10 Mg Oral Simvastatin 10 Mg Tablet, 1 0 Mg Oral 2017-06-21 00:00:00 No 10 Today At 9:00PM [facility] Sumatriptan Succinate 25 Mg Tablet, 25 Mg Oral Sumatri ptan Succinate 25 Mg Tablet, 25 Mg Oral 2017-06-21 00:00:00 No 25 As Needed as needed for Migraine [facility] Tramadol Hcl/Acetaminophen (Ultracet Tablet) 1 Each Ta blet, 50 Mg Oral Tramadol Hcl/Acetaminophen (Ultracet Tablet) 1 Each Tablet, 50 Mg Oral 2017-06-21 00:00:00 No 50 Every 4 Hours as needed for Benjamin n [facility] Fludrocortisone Acetate 0.1 Mg Tab, 0.05 Mg Oral Fludr ocortisone Acetate 0.1 Mg Tab, 0.05 Mg Oral 2016-04-14 00:00:00 No .05 Hd [facility] Insulin Human Lispro (Humalog) 100 Units/Ml Ml, 60 Uni ts Subcutaneously Insulin Human Lispro (Humalog) 100 Units/Ml Ml, 60 Units Subcutaneously 2016-04-14 00:00:00 No 60 Bedtime [facility] Insulin Human Lispro (Humalog) 100 Units/Ml Ml, 60 Uni ts Subcutaneously Insulin Human Lispro (Humalog) 100 Units/Ml Ml, 60 Units Subcutaneously 2016-04-14 00:00:00 No 60 Daily At 1700 C [facility] Lidocaine (Lidoderm) 700 Mg Adh..patch, 5 % Topically Lidocaine (Lidoderm) 700 Mg Adh..patch, 5 % Topically 2016-04-14 00:00:00 No 5 Every 12 Hours as needed for Pain [facility] Midodrine Hcl 2.5 Mg Tablet, 5 Mg Oral Midodrine Hcl 2.5 Mg Tabl et, 5 Mg Oral 2016-04-14 00:00:00 No 5 Twice A Day as neede d for After Hd [facility] Ondansetron Hcl (Ondansetron Odt) 4 Mg/Udtablet Tabdp, 4 Mg Oral Ondansetron Hcl (Ondansetron Odt) 4 Mg/Udtablet Tabdp, 4 Mg Oral 2016-04-14 00:00:00 No 4 Every 6 Hours as needed for Nausea [facility] Pregabalin (Lyrica) 75 Mg Cap, 75 Mg Oral Pregabalin ( Lyrica) 75 Mg Cap, 75 Mg Oral 2016-04-14 00:00:00 No 75 Twice A Day [facility] Scopolamine Hydrobromide (Transderm-Scop) 1 Each Patch .td72, 1.5 Mg Transderm Scopolamine Hydrobromide (Transderm-Scop) 1 Each Patch.td72, 1.5 Mg Transderm 2016-04-14 00:00:00 No 1.5 Q 3 Days [facility] Amoxicillin/Potassium Clav (Augmentin 50 0-125 Tablet) 1 Each Tablet, 500 Mg Oral Amoxicillin/Potassium Clav (Augmentin 50 0-125 Tablet) 1 Each Tablet, 500 Mg Oral 2015-08-15 00:00:00 No 500 Twice A Day [facility] Clopidogrel Bisulfate (Plavix) 75 Mg Tablet, 75 Mg Ora l Clopidogrel Bisulfate (Plavix) 75 Mg Tablet, 75 Mg Oral 2015-08-15 00:00:00 No 75 Daily [facility] Pantoprazole Sodium (Protonix) 40 Mg Tablet.dr, 40 Mg Oral Pantoprazole Sodium (Protonix) 40 Mg Tablet.dr, 40 Mg Oral 2015-08-15 00:00:00 No 40 Daily [facility] Immunizations Ordered Immunization Name Filled Immunization Name Date Status Comments Source FLUCELVAX QUAD PF 2018-12-16 00:00:00 Completed [place] [facility] Vital Signs Vital Name Observation Time Observation Value Comments Source Systolic (mm Hg) 2016-06-10 20:46:00 [place] Diastolic (mm Hg) 2016-06-10 20:46:00 [facility] [place] Heart Rate 2016-06-10 20:46:00 [facility] [place] Respitory Rate 2016-06-10 20:46:00 [place] Temperature Oral (F) 2016-06-10 20:46:00 98.4 F [facility] [place] Systolic (mm Hg) 2016-06-10 13:00:00 [facility] [facility] [place] Diastolic (mm Hg) 2016-06-10 13:00:00 [facility] [place] Temperature Oral (F) 2016-06-10 13:00:00 98.3 F [facility] [place] Respitory Rate 2016-06-10 13:00:00 [facility] [place] Heart Rate 2016-06-10 13:00:00 [facility] [place] Systolic (mm Hg) 2016-06-10 09:00:00 [facility] Diastolic (mm Hg) 2016-06-10 09:00:00 [facility] [place] Heart Rate 2016-06-10 09:00:00 [facility] [place] Respitory Rate 2016-06-10 09:00:00 [facility] [place] Temperature Oral (F) 2016-06-10 09:00:00 97.8 F [facility] [place] Height 2016-06-06 16:41:00 146.05 cm [facility] [place] Weight 2016-06-06 16:41:00 [facility] [place] BMI Calculated 2016-06-06 16:41:00 [facility] [place] Height 2016-06-05 18:38:00 144.78 cm [facility] [place] BMI Calculated 2016-06-05 18:38:00 [facility] [place] Weight 2016-06-05 18:38:00 [facility] [place] BMI Calculated 2016-06-05 11:19:00 [facility] [place] Height 2016-06-05 11:19:00 144.78 cm [facility] [place] Weight 2016-06-05 11:19:00 [facility] [place] Systolic (mm Hg) 2015-04-22 23:47:00 [facility] [place] Diastolic (mm Hg) 2015-04-22 23:47:00 [facility] [place] Respitory Rate 2015-04-22 23:47:00 [facility] [place] Heart Rate 2015-04-22 23:47:00 [facility] [place] Temperature Oral (F) 2015-04-22 23:47:00 98.7 F [facility] [place] Respitory Rate 2015-04-22 13:00:00 [facility] [place] Temperature Oral (F) 2015-04-22 13:00:00 97.7 F [facility] [place] Systolic (mm Hg) 2015-04-22 13:00:00 [facility] [place] Diastolic (mm Hg) 2015-04-22 13:00:00 [facility] [place] Heart Rate 2015-04-22 13:00:00 [facility] [place] Systolic (mm Hg) 2015-04-22 08:55:00 [facility] [place] Diastolic (mm Hg) 2015-04-22 08:55:00 [facility] [place] Respitory Rate 2015-04-22 08:55:00 [facility] [place] Temperature Oral (F) 2015-04-22 08:55:00 97.6 F [facility] [place] Heart Rate 2015-04-22 08:55:00 [facility] [place] BMI Calculated 2015-04-16 14:59:00 [facility] [place] Height 2015-04-16 14:59:00 144.78 cm [facility] [place] Weight 2015-04-16 14:59:00 [facility] [place] Height 2015-04-16 01:40:00 144.78 cm [facility] [place] BMI Calculated 2015-04-16 01:40:00 [facility] [place] Weight 2015-04-16 01:40:00 [facility] [place] Weight 2015-04-15 17:06:00 [facility] [place] BMI Calculated 2015-04-15 17:06:00 [facility] [place] Height 2015-04-15 17:06:00 144.78 cm [facility] [place] Respitory Rate 2015-01-11 17:49:00 [facility] [place] Temperature Oral (F) 2015-01-11 17:49:00 98.0 F [facility] [place] Heart Rate 2015-01-11 17:49:00 [facility] [place] Systolic (mm Hg) 2015-01-11 17:49:00 [facility] [place] Diastolic (mm Hg) 2015-01-11 17:49:00 [facility] [place] Systolic (mm Hg) 2015-01-11 16:42:00 [facility] [place] Diastolic (mm Hg) 2015-01-11 16:42:00 [facility] [place] Heart Rate 2015-01-11 16:42:00 [facility] [place] Respitory Rate 2015-01-11 16:42:00 [facility] [place] Systolic (mm Hg) 2015-01-11 14:35:00 [facility] [place] Diastolic (mm Hg) 2015-01-11 14:35:00 [facility] [place] Heart Rate 2015-01-11 14:35:00 [facility] [place] Respitory Rate 2015-01-11 14:35:00 [facility] [place] Height 2015-01-11 11:54:00 144.78 cm [facility] [place] Weight 2015-01-11 11:54:00 [facility] [place] BMI Calculated 2015-01-11 11:54:00 [facility] [place] Temperature Oral (F) 2015-01-11 11:54:00 97.8 F [facility] [place] Heart Rate 2014-11-27 20:03:00 [facility] [place] Diastolic (mm Hg) 2014-11-27 20:03:00 [facility] [place] Systolic (mm Hg) 2014-11-27 20:03:00 [facility] [place] Weight 2014-11-27 20:03:00 [facility] [place] Height 2014-11-27 20:03:00 144.78 cm [facility] [place] BMI Calculated 2014-11-27 20:03:00 [facility] [place] Temperature Oral (F) 2014-11-27 20:03:00 97.1 F [facility] [place] Heart Rate 2014-11-06 14:07:00 [facility] [place] Respitory Rate 2014-11-06 14:07:00 [facility] [place] Diastolic (mm Hg) 2014-11-06 14:07:00 [facility] [place] Systolic (mm Hg) 2014-11-06 14:07:00 [facility] [place] Height 2014-11-06 14:07:00 151 cm [facility] [place] BMI Calculated 2014-11-06 14:07:00 [facility] [place] Weight 2014-11-06 14:07:00 [facility] [place] Respitory Rate 2014-09-19 16:47:00 [facility] [place] Heart Rate 2014-09-19 16:47:00 [facility] [place] Temperature Oral (F) 2014-09-19 16:47:00 98.3 F [facility] [place] Diastolic (mm Hg) 2014-09-19 16:47:00 [facility] [place] Systolic (mm Hg) 2014-09-19 16:47:00 [facility] [place] Heart Rate 2014-09-19 16:12:00 [facility] [place] Diastolic (mm Hg) 2014-09-19 16:12:00 [facility] [place] Respitory Rate 2014-09-19 16:12:00 [facility] [place] Systolic (mm Hg) 2014-09-19 16:12:00 [facility] [place] Weight 2014-09-19 12:57:00 [facility] [place] BMI Calculated 2014-09-19 12:57:00 [facility] [place] Height 2014-09-19 12:57:00 144.78 cm [facility] [place] Respitory Rate 2014-09-19 12:57:00 [facility] [place] Temperature Oral (F) 2014-09-19 12:57:00 98.5 F [facility] [place] Heart Rate 2014-09-19 12:57:00 [facility] [place] Diastolic (mm Hg) 2014-09-19 12:57:00 [facility] [place] Systolic (mm Hg) 2014-09-19 12:57:00 [facility] [place] Heart Rate 2014-09-03 14:57:00 [facility] [place] Respitory Rate 2014-09-03 14:57:00 [facility] [place] Systolic (mm Hg) 2014-09-03 14:57:00 [facility] [place] Diastolic (mm Hg) 2014-09-03 14:57:00 [facility] [place] Systolic (mm Hg) 2014-09-03 13:45:00 [facility] [place] Diastolic (mm Hg) 2014-09-03 13:45:00 [facility] [place] Respitory Rate 2014-09-03 13:45:00 [facility] [place] Heart Rate 2014-09-03 13:45:00 [facility] [place] Heart Rate 2014-09-03 12:46:00 [facility] [place] Systolic (mm Hg) 2014-09-03 12:46:00 [facility] [place] Respitory Rate 2014-09-03 12:46:00 [facility] [place] Diastolic (mm Hg) 2014-09-03 12:46:00 [facility] [place] Height 2014-09-03 12:32:00 144.78 cm [facility] [place] Weight 2014-09-03 12:32:00 [facility] [place] BMI Calculated 2014-09-03 12:32:00 [facility] [place] Temperature Oral (F) 2014-09-03 12:32:00 98.6 F [facility] [place] Diastolic (mm Hg) 2014-08-02 21:00:00 [facility] [place] Respitory Rate 2014-08-02 21:00:00 [facility] [place] Systolic (mm Hg) 2014-08-02 21:00:00 [facility] [place] Temperature Oral (F) 2014-08-02 21:00:00 98.7 F [facility] [place] Heart Rate 2014-08-02 21:00:00 [facility] [place] Respitory Rate 2014-08-02 17:00:00 [facility] [place] Heart Rate 2014-08-02 17:00:00 [facility] [place] Temperature Oral (F) 2014-08-02 17:00:00 98.9 F [facility] [place] Diastolic (mm Hg) 2014-08-02 17:00:00 [facility] [place] Systolic (mm Hg) 2014-08-02 17:00:00 [facility] [place] Diastolic (mm Hg) 2014-08-02 13:00:00 [facility] [place] Heart Rate 2014-08-02 13:00:00 [facility] [place] Respitory Rate 2014-08-02 13:00:00 [facility] [place] Systolic (mm Hg) 2014-08-02 13:00:00 [facility] [place] Temperature Oral (F) 2014-08-02 13:00:00 98.3 F [facility] [place] Weight 2014-08-02 02:29:00 [facility] [place] BMI Calculated 2014-08-02 02:29:00 [facility] [place] Height 2014-08-02 02:29:00 144.78 cm [facility] [place] BMI Calculated 2014-08-01 11:27:00 [facility] [place] Height 2014-08-01 11:27:00 154.94 cm [facility] [place] Weight 2014-08-01 11:27:00 [facility] [place] Respitory Rate 2013-11-29 14:23:00 [facility] [place] Systolic (mm Hg) 2013-11-29 14:23:00 [facility] [place] Diastolic (mm Hg) 2013-11-29 14:23:00 [facility] [place] Heart Rate 2013-11-29 14:23:00 [facility] [place] Temperature Oral (F) 2013-11-29 14:23:00 98.1 F [facility] [place] Diastolic (mm Hg) 2013-11-29 10:00:00 [facility] [place] Temperature Oral (F) 2013-11-29 10:00:00 97.5 F [facility] [place] Heart Rate 2013-11-29 10:00:00 [facility] [place] Respitory Rate 2013-11-29 10:00:00 [facility] [place] Systolic (mm Hg) 2013-11-29 10:00:00 [facility] [place] Systolic (mm Hg) 2013-11-29 05:50:00 [facility] [place] Diastolic (mm Hg) 2013-11-29 05:50:00 [facility] [place] Heart Rate 2013-11-29 05:50:00 [facility] [place] Respitory Rate 2013-11-29 05:50:00 [facility] [place] Temperature Oral (F) 2013-11-29 05:50:00 97.8 F [facility] [place] Weight 2013-11-10 15:43:00 [facility] [place] Height 2013-11-10 15:43:00 144.78 cm [facility] [place] Height 2013-11-10 12:59:00 144.78 cm [facility] [place] Weight 2013-11-10 04:54:00 [facility] [place] Height 2013-11-10 04:54:00 144.78 cm [facility] [place] Respitory Rate 2013-08-10 13:28:00 [facility] [place] Diastolic (mm Hg) 2013-08-10 13:00:00 [facility] [place] Heart Rate 2013-08-10 13:00:00 [facility] [place] Respitory Rate 2013-08-10 13:00:00 [facility] [place] Systolic (mm Hg) 2013-08-10 13:00:00 [facility] [place] Temperature Oral (F) 2013-08-10 13:00:00 99.3 F [facility] [place] Heart Rate 2013-08-10 09:34:00 [facility] [place] Temperature Oral (F) 2013-08-10 09:34:00 97.7 F [facility] [place] Systolic (mm Hg) 2013-08-10 09:34:00 [facility] [place] Diastolic (mm Hg) 2013-08-10 09:34:00 [facility] [place] Respitory Rate 2013-08-10 09:34:00 [facility] [place] Diastolic (mm Hg) 2013-08-10 05:19:00 [facility] [place] Temperature Oral (F) 2013-08-10 05:19:00 98.6 F [facility] [place] Heart Rate 2013-08-10 05:19:00 [facility] [place] Systolic (mm Hg) 2013-08-10 05:19:00 [facility] [place] Weight 2013-08-09 11:08:00 [facility] [place] Weight 2013-08-07 09:50:00 [facility] [place] Weight 2013-08-05 22:39:00 [facility] [place] Height 2013-08-05 22:39:00 162.56 cm [facility] [place] Height 2013-08-05 12:02:00 162.56 cm [facility] [place] Weight 2013-08-03 20:02:00 [facility] [place] Systolic (mm Hg) 2013-08-03 20:02:00 [facility] [place] Diastolic (mm Hg) 2013-08-03 20:02:00 [facility] [place] Respitory Rate 2013-08-03 20:02:00 [facility] [place] Heart Rate 2013-08-03 20:02:00 [facility] [place] Temperature Oral (F) 2013-08-03 20:02:00 97.9 F [facility] [place] Heart Rate 2013-07-30 17:00:00 [facility] [place] Respitory Rate 2013-07-30 17:00:00 [facility] [place] Systolic (mm Hg) 2013-07-30 17:00:00 [facility] [place] Diastolic (mm Hg) 2013-07-30 17:00:00 [facility] [place] Temperature Oral (F) 2013-07-30 17:00:00 98.2 F [facility] [place] Heart Rate 2013-07-30 13:00:00 [facility] [place] Temperature Oral (F) 2013-07-30 13:00:00 98.5 F [facility] [place] Respitory Rate 2013-07-30 13:00:00 [facility] [place] Systolic (mm Hg) 2013-07-30 13:00:00 [facility] [place] Diastolic (mm Hg) 2013-07-30 13:00:00 [facility] [place] Systolic (mm Hg) 2013-07-30 09:24:00 [facility] [place] Respitory Rate 2013-07-30 09:24:00 [facility] [place] Heart Rate 2013-07-30 09:24:00 [facility] [place] Temperature Oral (F) 2013-07-30 09:24:00 98.0 F [facility] [place] Diastolic (mm Hg) 2013-07-30 09:24:00 [facility] [place] Weight 2013-07-24 17:06:00 [facility] [place] Height 2013-07-24 17:06:00 149.86 cm [facility] [place] Weight 2013-07-24 11:47:00 [facility] [place] Systolic (mm Hg) 2013-07-03 12:00:00 [facility] [place] Respitory Rate 2013-07-03 12:00:00 [facility] [place] Diastolic (mm Hg) 2013-07-03 12:00:00 [facility] [place] Heart Rate 2013-07-03 12:00:00 [facility] [place] Temperature Oral (F) 2013-07-03 12:00:00 98 F [facility] [place] Systolic (mm Hg) 2013-07-03 09:11:00 [facility] [place] Diastolic (mm Hg) 2013-07-03 09:11:00 [facility] [place] Respitory Rate 2013-07-03 09:11:00 [facility] [place] Heart Rate 2013-07-03 09:11:00 [facility] [place] Temperature Oral (F) 2013-07-03 09:11:00 97.9 F [facility] [place] Systolic (mm Hg) 2013-07-03 04:52:00 [facility] [place] Respitory Rate 2013-07-03 04:52:00 [facility] [place] Diastolic (mm Hg) 2013-07-03 04:52:00 [facility] [place] Heart Rate 2013-07-03 04:52:00 [facility] [place] Temperature Oral (F) 2013-07-03 04:52:00 97.4 F [facility] [place] Weight 2013-06-22 12:08:00 [facility] [place] Height 2013-06-22 12:08:00 147.32 cm [facility] [place] Height 2013-06-14 16:48:00 147.32 cm [facility] [place] Weight 2013-06-14 16:48:00 [facility] [place] Height 2013-01-12 16:13:00 144.78 cm [facility] [place] Weight 2013-01-12 16:13:00 [facility] [place] Weight 2013-01-06 18:10:00 [facility] [place] Height 2013-01-06 18:10:00 144.78 cm [facility] [place] Heart Rate 2012-12-28 22:53:00 [facility] [place] Temperature Oral (F) 2012-12-28 22:53:00 98.3 F [facility] [place] Diastolic (mm Hg) 2012-12-28 22:53:00 [facility] [place] Systolic (mm Hg) 2012-12-28 22:53:00 [facility] [place] Respitory Rate 2012-12-28 22:53:00 [facility] [place] Systolic (mm Hg) 2012-12-28 18:45:00 [facility] [place] Respitory Rate 2012-12-28 18:45:00 [facility] [place] Temperature Oral (F) 2012-12-28 18:45:00 97.8 F [facility] [place] Diastolic (mm Hg) 2012-12-28 18:45:00 [facility] [place] Respitory Rate 2012-12-28 16:48:00 [facility] [place] Diastolic (mm Hg) 2012-12-28 14:15:00 [facility] [place] Systolic (mm Hg) 2012-12-28 14:15:00 [facility] [place] Temperature Oral (F) 2012-12-28 14:15:00 97.7 F [facility] [place] Heart Rate 2012-12-28 14:15:00 [facility] [place] Heart Rate 2012-12-28 10:00:00 [facility] [place] Weight 2012-12-27 10:04:00 [facility] [place] Weight 2012-12-27 07:08:00 [facility] [place] Height 2012-12-27 06:03:00 146.05 cm [facility] [place] Weight 2012-12-26 05:30:00 [facility] [place] Height 2012-12-26 05:30:00 144.78 cm [facility] [place] Weight 2012-12-05 13:29:00 [facility] [place] Height 2012-12-05 13:29:00 144.78 cm [facility] [place] Temperature Oral (F) 2012-12-03 10:00:00 98.1 F [facility] [place] Heart Rate 2012-12-03 10:00:00 [facility] [place] Respitory Rate 2012-12-03 10:00:00 [facility] [place] Systolic (mm Hg) 2012-12-03 10:00:00 [facility] [place] Diastolic (mm Hg) 2012-12-03 10:00:00 [facility] [place] Systolic (mm Hg) 2012-12-03 06:00:00 [facility] [place] Diastolic (mm Hg) 2012-12-03 06:00:00 [facility] [place] Respitory Rate 2012-12-03 06:00:00 [facility] [place] Temperature Oral (F) 2012-12-03 06:00:00 98.1 F [facility] [place] Heart Rate 2012-12-03 06:00:00 [facility] [place] Heart Rate 2012-12-03 02:00:00 [facility] [place] Temperature Oral (F) 2012-12-03 02:00:00 98.5 F [facility] [place] Respitory Rate 2012-12-03 02:00:00 [facility] [place] Systolic (mm Hg) 2012-12-03 02:00:00 [facility] [place] Diastolic (mm Hg) 2012-12-03 02:00:00 [facility] [place] Height 2012-11-30 02:26:00 144.78 cm [facility] [place] Weight 2012-11-30 02:26:00 [facility] [place] Height 2012-11-30 02:06:00 144.78 cm [facility] [place] Weight 2012-11-30 02:06:00 [facility] [place] Weight 2012-11-29 16:47:00 [facility] [place] Height 2012-11-29 16:47:00 149.86 cm [facility] [place] Heart Rate 2012-09-11 02:00:00 [facility] [place] Temperature Oral (F) 2012-09-11 02:00:00 97.6 F [facility] [place] Systolic (mm Hg) 2012-09-11 02:00:00 [facility] [place] Respitory Rate 2012-09-11 02:00:00 [facility] [place] Diastolic (mm Hg) 2012-09-11 02:00:00 [facility] [place] Temperature Oral (F) 2012-09-10 23:30:00 97.9 F [facility] [place] Heart Rate 2012-09-10 23:30:00 [facility] [place] Systolic (mm Hg) 2012-09-10 23:30:00 [facility] [place] Respitory Rate 2012-09-10 23:30:00 [facility] [place] Diastolic (mm Hg) 2012-09-10 23:30:00 [facility] [place] Systolic (mm Hg) 2012-09-10 14:00:00 [facility] [place] Respitory Rate 2012-09-10 14:00:00 [facility] [place] Diastolic (mm Hg) 2012-09-10 14:00:00 [facility] [place] Temperature Oral (F) 2012-09-10 14:00:00 97.8 F [facility] [place] Heart Rate 2012-09-10 14:00:00 [facility] [place] Weight 2012-09-05 19:09:00 [facility] [place] Height 2012-09-05 19:09:00 157.48 cm [facility] [place] Heart Rate 2012-07-11 17:00:00 [facility] [place] Temperature Oral (F) 2012-07-11 17:00:00 98.1 F [facility] [place] Diastolic (mm Hg) 2012-07-11 17:00:00 [facility] [place] Systolic (mm Hg) 2012-07-11 17:00:00 [facility] [place] Respitory Rate 2012-07-11 17:00:00 [facility] [place] Systolic (mm Hg) 2012-07-11 13:00:00 [facility] [place] Diastolic (mm Hg) 2012-07-11 13:00:00 [facility] [place] Respitory Rate 2012-07-11 13:00:00 [facility] [place] Heart Rate 2012-07-11 13:00:00 [facility] [place] Temperature Oral (F) 2012-07-11 13:00:00 98.4 F [facility] [place] Temperature Oral (F) 2012-07-11 09:00:00 97.6 F [facility] [place] Diastolic (mm Hg) 2012-07-11 09:00:00 [facility] [place] Systolic (mm Hg) 2012-07-11 09:00:00 [facility] [place] Respitory Rate 2012-07-11 09:00:00 [facility] [place] Heart Rate 2012-07-11 09:00:00 [facility] [place] Weight 2012-07-01 01:17:00 [facility] [place] Height 2012-07-01 01:17:00 154.94 cm [facility] [place] Heart Rate 2012-02-16 21:00:00 [facility] [place] Temperature Oral (F) 2012-02-16 21:00:00 97.6 F [facility] [place] Respitory Rate 2012-02-16 21:00:00 [facility] [place] Systolic (mm Hg) 2012-02-16 21:00:00 [facility] [place] Diastolic (mm Hg) 2012-02-16 21:00:00 [facility] [place] Systolic (mm Hg) 2012-02-16 17:00:00 [facility] [place] Respitory Rate 2012-02-16 17:00:00 [facility] [place] Diastolic (mm Hg) 2012-02-16 17:00:00 [facility] [place] Temperature Oral (F) 2012-02-16 17:00:00 97.9 F [facility] [place] Heart Rate 2012-02-16 17:00:00 [facility] [place] Respitory Rate 2012-02-16 13:00:00 [facility] [place] Diastolic (mm Hg) 2012-02-16 13:00:00 [facility] [place] Heart Rate 2012-02-16 13:00:00 [facility] [place] Temperature Oral (F) 2012-02-16 13:00:00 98.3 F [facility] [place] Systolic (mm Hg) 2012-02-16 13:00:00 [facility] [place] Height 2012-02-01 05:57:00 144.78 cm [facility] [place] Height 2012-01-31 23:35:00 162.56 cm [facility] [place] Weight 2012-01-31 23:35:00 [facility] [place] Diastolic (mm Hg) 2012-01-29 22:43:00 [facility] [place] Systolic (mm Hg) 2012-01-29 22:43:00 [facility] [place] Respitory Rate 2012-01-29 22:43:00 [facility] [place] Heart Rate 2012-01-29 22:43:00 [facility] [place] Temperature Oral (F) 2012-01-29 22:43:00 98.4 F [facility] [place] Systolic (mm Hg) 2012-01-29 17:07:00 [facility] [place] Respitory Rate 2012-01-29 17:07:00 [facility] [place] Diastolic (mm Hg) 2012-01-29 17:07:00 [facility] [place] Heart Rate 2012-01-29 17:07:00 [facility] [place] Temperature Oral (F) 2012-01-29 17:07:00 98.0 F [facility] [place] Systolic (mm Hg) 2012-01-29 13:34:00 [facility] [place] Respitory Rate 2012-01-29 13:34:00 [facility] [place] Heart Rate 2012-01-29 13:34:00 [facility] [place] Temperature Oral (F) 2012-01-29 13:34:00 98.1 F [facility] [place] Diastolic (mm Hg) 2012-01-29 13:34:00 [facility] [place] Height 2011-12-31 10:13:00 152.40 cm [facility] [place] Weight 2011-12-31 10:13:00 [facility] [place] Weight 2011-12-31 01:29:00 [facility] [place] Height 2011-12-31 01:29:00 152.40 cm [facility] [place] Procedures Procedure Date / Time Performed Performing Clinician Brad myriam Computed tomography of brain without radiopaque contrast 201 05-29-27 00:00:00 CIARA MARINO [facility] REPAIR ACHILLES TENDON 2018-02-17 00:00:00 ADRIENNE VALLES [facility] REPAIR RIGHT LOWER LEG TENDON, OPEN APPROACH 2018-02-17 00:0 0:00 ADRIENNE VALLES [facility] X-ray of chest, two views 2018-02-04 00:00:00 JASPREET JEREZ [facility] MRI jnt of lwr extre w/o dye 2018-02-01 00:00:00 REENA ANGELY [facility] Computed tomography of brain without radiopaque contrast 201 05-27-23 00:00:00 [facility] Computed tomography of cervical spine without contrast 01-14 00:00:00 [place] [facility] PERFORMANCE OF URINARY FILTRATION, <6 HRS/DAY 2017-12-24 00:00:0 0 [facility] PERFORMANCE OF URINARY FILTRATION, <6 HRS/DAY 2017-12-23 00:00:0 0 [facility] TRANSFUSE NONAUT RED BLOOD CELLS IN PERIPH VEIN, PERC 12-22 00:00:00 JASPER LUGO [facility] PERFORMANCE OF URINARY FILTRATION, <6 HRS/DAY 2017-12-22 00:00:0 0 [facility] Unsched dialysis ESRD pt hos 2016 00:00:00 FARAZ BUSTILLO [facility] X-ray of chest, two views 2017-06-21 00:00:00 FITO BUSTILLO [facility] Hemodialysis 2013-08-07 05:00:00 [facility] Esophagogastroduodenoscopy [egd] with Closed Biopsy 2013-07-28 0 5:00:00 [facility] Esophagogastroduodenoscopy [egd] with Closed Biopsy 2013-07-28 0 5:00:00 [facility] [place] Hemodialysis 2013-07-24 05:00:00 [facility] [place] Laparoscopic sleeve gastrectomy 2013-06-22 05:00:00 [facility] [place] Laparoscopic sleeve gastrectomy 2013-06-22 05:00:00 Hetal Penn [facility] [place] Cholecystectomy 1991-10-25 06:00:00 [facility] [place] Cholecystectomy 1991-10-25 06:00:00 [facility] [place] Exploration of abdomen<sup>1</sup> 1991-10-25 00:00:00 [facility] [place] Exploration of abdomen <sup>1</sup> 1991-10-25 00:00:00 [facility] [place] Appendectomy [facility] [place] Gastric bypass [facility] [place] Hemodialysis [facility] Insertion of tunneled dialysis catheter using fluorosc opic guidance<sup>2</sup> [facility] [place] Appendectomy [facility] Plan of Care Planned Activity Planned Date Details Comments Source Future Scheduled Test 2020-07-25 00:00:00 INFLUENZA VACCINE [code = INFLUENZA VACCINE] [facility] Scheduled Test 2012 00:00:00 BREAST CANCER SCRE ENING [code = BREAST CANCER SCREENING] [facility] Scheduled Test 2012 00:00:00 COLONOSCOPY SCREEN ING [code = COLONOSCOPY SCREENING] [facility] Scheduled Test 2012 00:00:00 SHINGLES VACCINES (#1) [code = SHINGLES VACCINES (#1)] [facility] Scheduled Test 1983 00:00:00 Screening for farideh gnant neoplasm of cervix (procedure) [code = [id number]] [facility] Encounters Start Date/Time End Date/Time Encounter Type Admission Type Attendi [facility] Care Department Encounter ID Source 2018-03-19 09:48:00 2018-03-21 20:35:00 Discharged Inpatient 1 CIARA MARINO [facility] [id number] [facility] 2018-02-17 06:51:00 2018-02-17 06:51:00 Registered Surgical Day Care [facility] [id number] [facility] 2018-02-04 12:38:00 2018-02-04 12:38:00 Registered Clinic JASPREET DENISE [facility] [id number] [facility] 2018-02-01 15:10:00 2018-02-01 15:10:00 Registered Clinic ADRIENNE CANTRELL [facility] [id number] [facility] 2018-01-14 22:08:00 2018-01-15 01:58:00 Departed Emergency Room ER LEONIE REILLY [facility] [id number] [facility] 2017-12-31 17:00:00 2017-12-31 17:00:00 Registered [facility] [id number] [facility] 2017-12-22 17:03:00 2017-12-24 20:20:00 Discharged Inpatient ER CIARA MARINO [facility] [id number] [facility] 2017-11-27 07:26:00 2017-11-27 23:59:00 Outpatient WednesdayTiffanie [facility] [id number] 2017-11-19 16:48:00 2017-11-19 16:48:00 Registered Clinic SISI CABALLERO [facility] [id number] [facility] 2017-11-13 07:37:00 2017-11-13 23:59:00 Outpatient WednesdayTiffanie [facility] [id number] 2017-10-26 12:00:00 2017-10-26 12:00:00 Registered Clinic VICKY MA [facility] [id number] [facility] 2017-09-21 09:35:00 2017-09-21 09:35:00 Registered Clinic VICKY MA [facility] [id number] [facility] 2017-08-27 11:53:00 2017-08-27 11:53:00 [facility] [id number] [facility] 2017-06-21 19:09:00 2017-06-22 07:59:00 Departed Emergency Room ER FARAZ BUSTILLO [facility] [id number] [facility] 2017-06-15 09:06:00 2017-06-15 09:06:00 Registered Clinic [facility] [id number] [facility] 2017-04-06 10:31:00 2017-04-06 10:31:00 Registered Clinic [facility] [id number] [facility] 2016-06-05 06:12:00 2016-06-10 16:52:00 Outpatient Daphney Esquivel MHSE MHSE [id number] 2015-04-15 12:05:00 2015-04-22 16:50:00 Outpatient Minor Cardenas MHIE MHIE [id number] 2015-01-11 06:45:00 2015-01-11 12:53:00 Outpatient Kim Bobby MHIE MHIE [id number] 2014-11-06 07:51:00 2014-12-05 23:59:00 Outpatient Maya Buchanan MHIE MHIE [id number] 2014-11-27 13:13:00 2014-11-27 23:59:00 Outpatient Cristin Moreno MHIE MHIE [id number] 2014-09-19 06:51:00 2014-09-19 11:08:00 Outpatient Cory Lainez MHIE MHIE [id number] 2014-09-03 06:30:00 2014-09-03 09:58:00 Outpatient Patrcik Singh MHIE MHIE [id number] 2014-08-01 06:19:00 2014-08-02 17:42:00 Outpatient Monica Diaz MHIE MHIE [id number] 2013-11-09 22:48:00 2013-11-29 18:25:00 Outpatient MHIE MHIE [id number] [facility] 2013-09-20 10:37:00 2013-09-20 11:00:00 Outpatient MHIE MHIE [id number] [facility] 2013-08-05 06:59:00 2013-08-10 13:45:00 Outpatient MHIE MHIE [id number] [facility] 2013-08-05 06:59:00 2013-08-10 13:45:00 Outpatient MHIE MHIE [id number] [facility] 2013-08-05 06:59:00 2013-08-10 13:45:00 Outpatient MHIE MHIE [id number] [facility] 2013-08-05 06:59:00 2013-08-10 13:45:00 Outpatient MHIE MHIE [id number] [facility] 2013-08-05 06:59:00 2013-08-10 13:45:00 Outpatient MHIE MHIE [id number] [facility] 2013-08-03 15:00:00 2013-08-03 18:36:00 Outpatient MHIE MHIE [id number] [facility] 2013-08-03 15:00:00 2013-08-03 18:36:00 Outpatient MHIE MHIE [id number] [facility] 2013-08-03 15:00:00 2013-08-03 18:36:00 Outpatient MHIE MHIE [id number] [facility] 2013-08-03 15:00:00 2013-08-03 18:36:00 Outpatient MHIE MHIE [id number] [facility] 2013-08-03 15:00:00 2013-08-03 18:36:00 Outpatient MHIE MHIE [id number] [facility] 2013-07-24 06:40:00 2013-07-30 12:30:00 Outpatient MHIE MHIE [id number] [facility] Results Test Description Test Time Test Comments Results Result Comments Source ANKLE 3 + VIEWS RIGHT 2020-06-20 09:50:00 [place] [address] Patient Name: TAI GRANT MR #: [id number] : 1960 Age/Sex: 60/F Req #: [id number] Adm Physician: Ordered by: KENDALL RUSSO DO Report #: [id number] Location: ER Room/Bed: Procedure: [id number] DX/ANKLE 3 + VIEWS RIGHT Exam Date: [...] Analysis Not Detected PTPN11 Mutation Analysis Not HohgfswbGPDR9U Mutation Not Detected RUNX1 Mutation Analysis Not [...] FLT3, HRAS, IDH1, IDH2, JAK2 Exon 12-14, GPS4C213M, KIT, KRAS, NF1, NPM1, NRAS, PDGFRA, PPM1D, PTEN,PTPN11, RUNX1, SETBP1, SF3B1, SRSF2, STAG2, TET2, TP53,U2AF1, ZRSR2 Sandi Carlos M.D. FLUORESCENCE INSITU [id number] 14:05:00* Test Item Value Reference Range Interpretation Comments FLUORESCENCE INSITU HYBRID (test code = FISH) FISH Analysis: MDS Extended Results: Normal Interpretation:inv(3)/t(3;3): Not DetectedDel(5q): Not DetectedMonosomy 5: Not DetectedDel(7q): Not DetectedMonosomy 7: Not DetectedTrisomy 8: Not DetectedDel(17p) TP53: Not DetectedTrisomy 19: Not DetectedTetrasomy 19: Not DetectedDel(20q): Not DetectedETV6 Rearrangement: Not ElotxaqoTXK8S(MLL) Rearrangement: Not Detected Fluorescence in situ hybridizati on (FISH) analysis wasperformed using a specific set of probes for myelodysplasticsyndrome. Counts for all probe signals were within the normalreference range. This finding represents a NORMAL result. Probe Set Detail:+19: nuc constantino(ACP5,BLVRB)x2[199]Chromosome 8: nuc constantino(CEN8x2)[200]Chromosome 20: nuc constantino(Q02Y659,20qter)X2[199]5q-/-5/+5 tricolor: nuc constantino(hTERT,EGR1,RPS14)x2[199]7q-/-7 tri: nuc constantino(CEN7,D 9J1729,T0I9073)x2[200]p53 (17p13.1)/ NF1 (17q11): nuc constantino(TP53,NF1)x2[200]ETV6 (12p13): nuc constantino(ETV6x2)[198]KMT2A (MLL) (11q23)*: nuc constantino(LLS9Dl7)[200]RPN1/MECOM (3q): nuc constantino(RPN1,MECOM)x2[191] Comments:The results of this [...] Clinicalcorrelation is advised. Nuclei Scored: 200 Electronic SignatureOrlin Townsend M.D., Pathologist CHROMOSOME SEA BONE [id number] 14:05:00* Test Item Value Reference Range Interpretation [...] FACG Vi Lozada M.D., Ph.D., Pathologist - [facility]. LEUK/LYMPHOMA [id number] 14:05:00* Test Item Value Reference Range Interpretation [...] CD41, CD45, CD56, CD64, CD71, CD117,CD123, CD138, NJ771t, cMPO, FMC-7, HLA-DR, [place], Lambda, nTdT (37 Markers) Microscopic DescriptionA digital image of a cytospin slide was reviewed for QApurposes. Sandi Ho M.D., Hematopathologist [id number] 12:54:00* Test Item Value Reference Range Interpretation Comments GLUBED (test code = GLUBED) 94 MG/DL 70-110 N Performed by certified necktie operator pockets and pieces at [facility] [id number] 08:07:00* Test Item Value Reference Range Interpretation Comments GLUBED (test code = GLUBED) 144 MG/DL 70-110 H Performed by certified necktie operator pockets and pieces at [facility] [id number] 08:04:00* Test Item Value Reference Range Interpretation Comments GLUBED (test code = GLUBED) 87 MG/DL 70-110 N Performed by certified necktie operator pockets and pieces at [facility] [id number] 03:13:00* Test Item Value Reference Range Interpretation Comments GLUBED (test code = GLUBED) 80 MG/DL 70-110 N Performed by certified necktie operator pockets and pieces at [facility] [id number] 19:31:00* Test Item Value Reference Range Interpretation Comments GLUBED (test code = GLUBED) 75 MG/DL 70-110 N Performed by certified necktie operator pockets and pieces at [facility] [id number] 17:44:00* Test Item Value Reference Range Interpretation Comments GLUBED (test code = GLUBED) 110 MG/DL 70-110 N Performed by certified necktie operator pockets and pieces at [facility] [id number] 09:58:00* Test Item Value Reference Range Interpretation Comments GLUBED (test code = GLUBED) 131 MG/DL 70-110 H Performed by certified necktie operator pockets and pieces at [facility] [id number] 08:17:00* Test Item Value Reference Range Interpretation Comments GLUBED (test code = GLUBED) 127 MG/DL 70-110 H Performed by certified necktie operator pockets and pieces at [facility] CBC W/AUTO [id number] 08:13:00* Test Item Value Reference Range Interpretation [...] (test code = MDIFF) NO BASIC METABOLIC [id number] 08:09:00* Test Item Value Reference Range Interpretation [...] code = CA) 7.9 mg/dL 8.0-10.5 L [id number] 08:09:00* Test Item Value Reference Range Interpretation Comments PHOSPHOROUS (test code = PHOS) 6.1 MG/DL 2.5-4.9 H [id number] 08:09:00* Test Item Value Reference Range Interpretation Comments MAGNESIUM (test code = MAG) 2.90 mg/dL 1.8-2.4 H CBC W/AUTO [id number] 05:04:00* Test Item Value Reference Range Interpretation [...] REQUIRED (test code = MDIFF) NO RBC [id number] 05:04:00* Test Item Value Reference Range Interpretation Comments POLYCHROMASIA (test code = POLC) SLIGHT POIKILOCYTOSIS (test code = POIK) 1+ ANISOCYTOSIS (test code = ANISO) 1+ MACROCYTOSIS (test code = MACR) 1+ TEAR DROP CELLS (test code = TEAR) FEW SCHISTOCYTES (test code = PAULY) FEW CBC W/AUTO [id number] 04:44:00* Test Item Value Reference Range Interpretation [...] REQUIRED (test code = MDIFF) NO RBC [id number] 04:44:00* Test Item Value Reference Range Interpretation Comments ANISOCYTOSIS (test code = ANISO) CBC W/AUTO [id number] 04:44:00* Test Item Value Reference Range Interpretation [...] REQUIRED (test code = MDIFF) NO RBC [id number] 04:44:00* Test Item Value Reference Range Interpretation Comments ANISOCYTOSIS (test code = ANISO) [id number] 17:25:00* Test Item Value Reference Range Interpretation Comments GLUBED (test code = GLUBED) 130 MG/DL 70-110 H Performed by certified necktie operator pockets and pieces at [facility] BASIC METABOLIC [id number] 12:46:00* Test Item Value Reference Range Interpretation [...] code = CA) 8.4 mg/dL 8.0-10.5 N [id number] 12:46:00* Test Item Value Reference Range Interpretation Comments MAGNESIUM (test code = MAG) 2.70 mg/dL 1.8-2.4 H CBC W/O [id number] 12:29:00* Test Item Value Reference Range Interpretation [...] code = MPV) 9.5 fL 7.0-9.0 H [id number] 12:11:00* Test Item Value Reference Range Interpretation Comments GLUBED (test code = GLUBED) 100 MG/DL 70-110 N Performed by certified necktie operator pockets and pieces at [facility] - XR ABDOMEN 1V (KUB)2020-02-25 11:16:00 FAX: Gerda Garcia MD [phone] [place]: St: ADM FAX: Callum Choi MD [phone] FAX: Jaspreet Perea MD [phone] Name: TAI GRANT [facility] : 1960 Age/S: 59/F [address] [place] [address] Unit #: [id number] Loc: G.[address] [place] [address] Phys: Gerda Garcia MD Acct: [id number] Dis Date: Status: ADM IN PH ONE #: [phone] Exam Date: 02/25/20201101 FAX #: [phone] Reason: c diff EXAMS: CPT CODE: [id number] XR ABDOMEN 1V (KUB) 57697 Procedure: Abd ominal Radiograph. Clinical Indication: C. [...] Emma Orig Print D/T: S: 02/25/20 20 (3639) PAGE 1 Signed Report [id number] 08:09:00* Test Item Value Reference Range Interpretation Comments GLUBED (test code = GLUBED) 99 MG/DL 70-110 N Performed by certified necktie operator pockets and pieces at [facility] [id number] 19:54:00* Test Item Value Reference Range Interpretation Comments GLUBED (test code = GLUBED) 140 MG/DL 70-110 H Performed by certified necktie operator pockets and pieces at [facility] [id number] 16:51:00* Test Item Value Reference Range Interpretation Comments GLUBED (test code = GLUBED) 98 MG/DL 70-110 N Performed by certified necktie operator pockets and pieces at [facility] CHEMISTRY MISCELLANEOUS [id number] 14:43:00* Test Item Value Reference Range Interpretation Comments CHEMISTRY TEST (test code = TESTC) CHEMISTRY TEST RESULT (test code = RESULTC) FLUORESCENCE INSITU [id number] 14:43:00* Test Item Value Reference Range Interpretation Comments FLUORESCENCE INSITU HYBRID (test code = FISH) FISH Analysis: MDS Extended Results: Normal Interpretation:inv(3)/t(3;3): Not DetectedDel(5q): Not DetectedMonosomy 5: Not DetectedDel(7q): Not DetectedMonosomy 7: Not DetectedTrisomy 8: Not DetectedDel(17p) TP53: Not DetectedTrisomy 19: Not DetectedTetrasomy 19: Not DetectedDel(20q): Not DetectedETV6 Rearrangement: Not XmcjfxooJWO1S(MLL) Rearrangement: Not Detected Fluorescence in situ hybridizati on (FISH) analysis wasperformed using a specific set of probes for myelodysplasticsyndrome. Counts for all probe signals were within the normalreference range. This finding represents a NORMAL result. Probe Set Detail:+19: nuc constantino(ACP5,BLVRB)x2[199]Chromosome 8: nuc constantino(CEN8x2)[200]Chromosome 20: nuc constantino(J45W567,20qter)X2[199]5q-/-5/+5 tricolor: nuc constantino(hTERT,EGR1,RPS14)x2[199]7q-/-7 tri: nuc constantino(CEN7,D 9H5715,R2I6333)x2[200]p53 (17p13.1)/ NF1 (17q11): nuc constantino(TP53,NF1)x2[200]ETV6 (12p13): nuc constantino(ETV6x2)[198]KMT2A (MLL) (11q23)*: nuc constantino(ZIW7Dn1)[200]RPN1/MECOM (3q): nuc constantino(RPN1,MECOM)x2[191] Comments:The results of this [...] Clinicalcorrelation is advised. Nuclei Scored: 200 Electronic SignatureOrlin Townsend M.D., Pathologist CHROMOSOME SEA BONE [id number] 14:43:00* Test Item Value Reference Range Interpretation [...] 400 Electronic SignatureMohamed MD Sandra, MS, ABMGG, FACG Vi Lozada M.D., Ph.D., Pathologist - [facility]. LEUK/LYMPHOMA [id number] 14:43:00* Test Item Value Reference Range Interpretation [...] CD41, CD45, CD56, CD64, CD71, CD117,CD123, CD138, UJ231z, cMPO, FMC-7, HLA-DR, [place], Lambda, nTdT (37 Markers) Microscopic DescriptionA digital image of a cytospin slide was reviewed for QAdonn. Sandi Ho M.D., Hematopathologist CHEMISTRY MISCELLANEOUS [id number] 14:41:00* Test Item Value Reference Range Interpretation Comments CHEMISTRY TEST (test code = TESTC) CHEMISTRY TEST RESULT (test code = RESULTC) FLUORESCENCE INSITU [id number] 14:41:00* Test Item Value Reference Range Interpretation Comments FLUORESCENCE INSITU HYBRID (test code = FISH) FISH Analysis: MDS Extended Results: Normal Interpretation:inv(3)/t(3;3): Not DetectedDel(5q): Not DetectedMonosomy 5: Not DetectedDel(7q): Not DetectedMonosomy 7: Not DetectedTrisomy 8: Not DetectedDel(17p) TP53: Not DetectedTrisomy 19: Not DetectedTetrasomy 19: Not DetectedDel(20q): Not DetectedETV6 Rearrangement: Not VlwxzqmlCVI4H(MLL) Rearrangement: Not Detected Fluorescence in situ hybridizati on (FISH) analysis wasperformed using a specific set of probes for myelodysplasticsyndrome. Counts for all probe signals were within the normalreference range. This finding represents a NORMAL result. Probe Set Detail:+19: nuc constantino(ACP5,BLVRB)x2[199]Chromosome 8: nuc constantino(CEN8x2)[200]Chromosome 20: nuc constantino(Z50L426,20qter)X2[199]5q-/-5/+5 tricolor: nuc constantino(hTERT,EGR1,RPS14)x2[199]7q-/-7 tri: nuc constantino(CEN7,D 1T3078,I3S8671)x2[200]p53 (17p13.1)/ NF1 (17q11): nuc constantino(TP53,NF1)x2[200]ETV6 (12p13): nuc constantino(ETV6x2)[198]KMT2A (MLL) (11q23)*: nuc constantino(HSB0Er8)[200]RPN1/MECOM (3q): nuc constantino(RPN1,MECOM)x2[191] Comments:The results of this [...] SignatureDaelin Townsend M.D., Pathologist CHROMOSOME SEA BONE [id number] 14:41:00* Test Item Value Reference Range Interpretation Comments CHROMOSOME SEA BONE MARROW (test code = CHROMBM) LEUK/LYMPHOMA [id number] 14:41:00* Test Item Value Reference Range Interpretation [...] CD41, CD45, CD56, CD64, CD71, CD117,CD123, CD138, YN034u, cMPO, FMC-7, HLA-DR, [place], Lambda, nTdT (37 Markers) Microscopic DescriptionA digital image of a cytospin slide was reviewed for QApurposes. Sandi Ho M.D., Hematopathologist CHEMISTRY MISCELLANEOUS [id number] 14:38:00* Test Item Value Reference Range Interpretation Comments CHEMISTRY TEST (test code = TESTC) CHEMISTRY TEST RESULT (test code = RESULTC) FLUORESCENCE INSITU [id number] 14:38:00* Test Item Value Reference Range Interpretation Comments FLUORESCENCE INSITU HYBRID (test code = FISH) CHROMOSOME SEA BONE [id number] 14:38:00* Test Item Value Reference Range Interpretation Comments CHROMOSOME SEA BONE MARROW (test code = CHROMBM) LEUK/LYMPHOMA [id number] 14:38:00* Test Item Value Reference Range Interpretation [...] CD41, CD45, CD56, CD64, CD71, CD117,CD123, CD138, RK493v, cMPO, FMC-7, HLA-DR, [place], Lambda, nTdT (37 Markers) Microscopic DescriptionA digital image of a cytospin slide was reviewed for QApurposes. Electronic SignatureSanisa Ho M.D., Hematopathologist - [facility] [id number] 14:19:00 Name: TAI GRANT [facility] : 1960 Age/S: 59 / F [address] [place] [address] Unit #: [id number] Loc: [place] [address] Phys: Satya Almanza MD Acct: [id number] Dis Date: Status: ADM IN PHONE #: [phone] Exam Date: 02/24/2020 1244 FAX #: [phone] Reason: SYNCOPE EXAMS: CPT CODE: [id number] [facility] JIGNA 82120 Bilateral carotid ultrasound 02/24/2020 HISTORY: Syncope TECHNIQUE: [...] Limited study due to external bandaging. SL: [id number] at 1419 Reported and signed by: Vamsi Pabon M.D. CC: Satya Almanza MD; Callum Belrte MD; Jaspreet Jerez MD Technologist: Cristine Salazar RDMS(AB)(OB) Trnscb Date/Time: 02/24/2020 (2831) BobBJM4 Orig Print D/T: S: 02/24/2020 (1366) Probe: PAGE 1 Signed Report GLUBED 2020-02-24 12:29:00* Test Item Value Reference Range Interpretation Comments GLUBED (test code = GLUBED) 131 MG/DL 70-110 H Performed by certified necktie operator pockets and pieces at [facility] [id number] 08:54:00* Test Item Value Reference Range Interpretation Comments GLUBED (test code = GLUBED) 93 MG/DL 70-110 N Performed by certified necktie operator pockets and pieces at [facility] CBC W/AUTO [id number] 04:51:00* Test Item Value Reference Range Interpretation [...] REVIEWED, CONSISTENT WITH AUTO DIFF. BASIC METABOLIC [id number] 04:50:00* Test Item Value Reference Range Interpretation [...] code = CA) 8.5 mg/dL 8.0-10.5 N [id number] 04:50:00* Test Item Value Reference Range Interpretation Comments MAGNESIUM (test code = MAG) 1.60 mg/dL 1.8-2.4 L CBC W/AUTO [id number] 04:28:00* Test Item Value Reference Range Interpretation [...] MANUAL DIFF REQUIRED (test code = MDIFF) [id number] 04:11:00* Test Item Value Reference Range Interpretation Comments GLUBED (test code = GLUBED) 102 MG/DL 70-110 N Performed by certified necktie operator pockets and pieces at [facility] [id number] 20:22:00* Test Item Value Reference Range Interpretation Comments GLUBED (test code = GLUBED) 127 MG/DL 70-110 H Performed by certified necktie operator pockets and pieces at [facility] [id number] 18:22:00* Test Item Value Reference Range Interpretation Comments GLUBED (test code = GLUBED) 132 MG/DL 70-110 H Performed by certified necktie operator pockets and pieces at [facility] [id number] 17:36:00* Test Item Value Reference Range Interpretation Comments GLUBED (test code = GLUBED) 103 MG/DL 70-110 N Performed by certified necktie operator pockets and pieces at [facility] [id number] 14:35:00* Test Item Value Reference Range Interpretation Comments GLUBED (test code = GLUBED) 122 MG/DL 70-110 H Performed by certified necktie operator pockets and pieces at [facility] [id number] 14:35:00* Test Item Value Reference Range Interpretation Comments GLUBED (test code = GLUBED) 118 MG/DL 70-110 H Performed by certified necktie operator pockets and pieces at [facility] CBC W/AUTO [id number] 10:26:00* Test Item Value Reference Range Interpretation [...] REQUIRED (test code = MDIFF) YES WBC [id number] 10:26:00* Test Item Value Reference Range Interpretation [...] PLATELETS FEW LARGE PLTS SEEN CBC W/AUTO [id number] 10:18:00* Test Item Value Reference Range Interpretation [...] REQUIRED (test code = MDIFF) YES WBC [id number] 10:18:00* Test Item Value Reference Range Interpretation Comments ANISOCYTOSIS (test code = ANISO) PLATELET ESTIMATE (test code = PLTEST) THOUSAND ADEQUATE CBC W/AUTO [id number] 10:18:00* Test Item Value Reference Range Interpretation [...] REQUIRED (test code = MDIFF) YES WBC [id number] 10:18:00* Test Item Value Reference Range Interpretation Comments ANISOCYTOSIS (test code = ANISO) PLATELET ESTIMATE (test code = PLTEST) THOUSAND ADEQUATE BASIC METABOLIC [id number] 08:51:00* Test Item Value Reference Range Interpretation [...] code = CA) 8.6 mg/dL 8.0-10.5 N [id number] 08:35:00* Test Item Value Reference Range Interpretation Comments GLUBED (test code = GLUBED) 90 MG/DL 70-110 N Performed by certified necktie operator pockets and pieces at [facility] CBC W/AUTO [id number] 07:40:00* Test Item Value Reference Range Interpretation [...] MANUAL DIFF REQUIRED (test code = MDIFF) [id number] 07:08:00* Test Item Value Reference Range Interpretation Comments GLUBED (test code = GLUBED) 90 MG/DL 70-110 N Performed by certified necktie operator pockets and pieces at [facility] [id number] 20:04:00* Test Item Value Reference Range Interpretation Comments GLUBED (test code = GLUBED) 83 MG/DL 70-110 N Performed by certified necktie operator pockets and pieces at [facility] [id number] 17:30:00* Test Item Value Reference Range Interpretation Comments GLUBED (test code = GLUBED) 124 MG/DL 70-110 H Performed by certified necktie operator pockets and pieces at [facility] [id number] 17:30:00* Test Item Value Reference Range Interpretation Comments GLUBED (test code = GLUBED) 111 MG/DL 70-110 H Performed by certified necktie operator pockets and pieces at [facility] [id number] 11:10:00* Test Item Value Reference Range Interpretation Comments GLUBED (test code = GLUBED) 99 MG/DL 70-110 N Performed by certified necktie operator pockets and pieces at [facility] SURGICAL [id number] 10:41:00 RUN DATE: 02/22/20 [facility] *LIVE* PAGE 1 RUN TIME: 1041 Specimen Inqui ry RUN USER: INTERFACE PATIENT: TAI GRANT ACCT #: [id number] LOC: G.T U #: [id number] AGE/SX: 59/F ROOM: [facility] RE02/09/20ALEX DR: Jonathan Vogel : 64 BED: 1 DIS: 02/17/20 STATUS: DIS IN TLOC: SPEC #: [id number] RECD: 02/15/20 STATUS: NITO REQ #: [id number] JAZMINE: 02/15/[address]: Jonathan Vogel MD ENTERED: 02/21/20 SP TYPE: SURG SPEC OTHR DR: Jeanette Morataya MD, Nicholas PA-C Hafez, Jawdat R DPM L Fritz castillo MD, Alberto J MD Rosen blatt, Michael MD See rangan, Geetha MD Sub ramanyam, Kalyanam MDORDERED: GM LEVEL 4 CODES: [id number] - BONE MARROW, NO COPIES TO: Roxann martinf Referred Jonathan Vogel MD [address] [facility] [address] [place] [address] Jeanette Mayo MD [address] [place] [phone] Atul Clarke PA-C [address] [facility] [address] [place] [phone] Edis Leonard DPM [address] [address] Fritz Webb MD [address] [place] [address] Jaspreet Jerez MD [address] [facility] [address] [place] [id number] C ONTINUED ON NEXT PAGE RUN DATE: 02/22/20 [facility] *LIVE* PAGE 2 RUN TIME: 1041 Specimen Inquiry RUN USER: INTERFACE SPEC #: [id number] PATIENT: TAI GRANT #[id number] (Continued) - COPIES TO: (Continued) Faraz Colin MD [address] [place] [address] Bertha Martin MD [address] [place] [address] Feliz Tam MD [address] [place] [address] [address] [place] [address] PROCEDURES: GM LEVEL 4 (Inc omplete) TISSUES: 1. BONE MARROW, NOS - Bone marrow, left iliac, asp. bx. COMMENTS The case is sent to [facility] for consult, se e outside reports. The patient has pancytopenia, the current bone marrow is h ypercellular with no increase in blasts confirmed by CD34, CD117 immunohistoch emical stains as well as differential count on the bone marrow aspirate smea r. Megakaryocytes are increased in number. Prominent [...] other concurrent testing. [facility] and other individual reports [...] CONTINUED ON NEXT PAGE RUN DATE: 02/22/20 [facility] *LIVE* PAGE 3 RUN TIME: 1041 S catherine Inquiry RUN USER: INTERFACE SPEC #: [id number] PATIENT: TAI GRANT #[id number] (Continued) GROSS AND MICROSCOPIC (Continued) Megakaryocytes are [...] Orlin Alvarez DO 02/22/20 1041 END OF REPO RT SURGICAL [id number] 10:41:00 RUN DATE: 03/29/20 [facility] *LIVE* PAGE 1 RUN TIME: 847 Specimen Inqui ry RUN USER: INTERFACE PATIENT: TAI GRANT ACCT #: [id number] [facility] #: [id number] AGE/SX: 59/F ROOM: [facility] RE02/09/20REG DR: Jonathan Vogel : 64 BED: 1 DIS: 02/17/20 STATUS: DIS IN TLOC: SPEC #: [id number] RECD: 02/15/20 STATUS: NITO REQ #: [id number] JAZMINE: 02/15/20 [facility] DR: Jonathan Vogel MD ENTERED: 02/21/20-956 SP TYPE: SURG SPEC OTHR DR: Jeanette Morataya MD, Nicholas PA-C Hafez, Jawdat R DPM L akhani, Asif MD Romer o, Alberto J MD Rosen blatt, Michael MD See rangan,Bertha MD Sub ramanyam,Kalyanam MDORDERED: GM LEVEL 4 CODES: [id number] - BONE MARROW, NO COPIES TO: Jonathan Meyers MD [address] [facility] Abhishek [address] [place] [phone] Jeanette Mayo MD [address] [phone] Atul Clarke PA-C [address] [phone] Edis Leonard DPM [address] [facility] [place] [address] [address] Fritz Webb MD [address] [place], [place] [id number] Jaspreet Jerez MD [address] [place] [id number] C ONTINUED ON NEXT PAGE RUN DATE: 03/29/20 Maricarmen de leon [facility] *LIVE* PAGE 2 RUN TIME: 0848 Specimen Inquiry RUN USER: INTERFACE SPEC #: [id number] PATIENT: TAI GRANTSADE #[id number] (Continued) - COPIES TO: (Continued) Faraz Colin MD [address] [place] [address] Bertha Martin MD [address] [place] [phone] Feliz Tam MD [facility]5 [facility] [address] [place] [phone] PROCEDURES: GM LEVEL 4 (Inc omplete) TISSUES: 1. BONE MARROW, NOS - Bone marrow, left iliac, asp. bx. ADDENDUM FINDINGS Addendum #1 Entered: 03/28/20-08 43 [facility] SELECT: Final Diagnosis: -Consistent with low grade myelodysplastic syndrome involving a hypercellular bone marrow 55% cellular with no g enetic or chromosomal abnormalities. Interpr etation by [facility], see outside reports. Addendum S igned SIGNATURE ON FILE Orlin Alvarez Monica YI 03/29/20 0848 ------- ----- COMMENTS The case is sent to [facility] for consult, see o utside reports. The patient has pancytopenia, the current [...] CONTINUED ON NEXT PAGE RUN DATE: 03/29/20 [facility] *LIVE* PAGE 3 RUN TIME: 847 Specimen Inq Flipiturery RUN USER: INTERFACE SPEC #: [id number] PATIENT: JAIRON GRANT DARYL #[id number] (Continued) COMMENTS (Continued) assessment of a hematopathology [...] 87 MG/DL 70-110 N Performed by certified necktie operator pockets and pieces at [facility] [id number] 17:48:00* Test Item Value Reference Range Interpretation Comments GLUBED (test code = GLUBED) 130 MG/DL 70-110 H Performed by certified necktie operator pockets and pieces at [facility] CBC W/AUTO [id number] 13:54:00* Test Item Value Reference Range Interpretation [...] REQUIRED (test code = MDIFF) NO PLT [id number] 13:54:00* Test Item Value Reference Range Interpretation Comments PLATELET ESTIMATE (test code = PLTEST) 108-135 THOUSAND ADEQUATE PLATELET MORPHOLOGY (test code = PLTMORPH) LARGE PLATELETS FEW LARGE PLTS SEEN BASIC METABOLIC [id number] 13:49:00* Test Item Value Reference Range Interpretation [...] CA) 8.7 mg/dL 8.0-10.5 N CBC W/AUTO [id number] 13:30:00* Test Item Value Reference Range Interpretation [...] REQUIRED (test code = MDIFF) NO PLT [id number] 13:30:00* Test Item Value Reference Range Interpretation Comments PLATELET ESTIMATE (test code = PLTEST) THOUSAND ADEQUATE CBC W/AUTO [id number] 13:30:00* Test Item Value Reference Range Interpretation [...] REQUIRED (test code = MDIFF) NO PLT [id number] 13:30:00* Test Item Value Reference Range Interpretation Comments PLATELET ESTIMATE (test code = PLTEST) THOUSAND ADEQUATE [id number] 08:41:00* Test Item Value Reference Range Interpretation Comments GLUBED (test code = GLUBED) 82 MG/DL 70-110 N Performed by certified necktie operator pockets and pieces at [facility] [id number] 21:07:00* Test Item Value Reference Range Interpretation Comments GLUBED (test code = GLUBED) 85 MG/DL 70-110 N Performed by certified necktie operator pockets and pieces at [facility] [id number] 17:23:00* Test Item Value Reference Range Interpretation Comments GLUBED (test code = GLUBED) 91 MG/DL 70-110 N Performed by certified necktie operator pockets and pieces at [facility] [id number] 17:02:00* Test Item Value Reference Range Interpretation Comments GLUBED (test code = GLUBED) 85 MG/DL 70-110 N Performed by certified necktie operator pockets and pieces at [facility] CBC W/AUTO [id number] 12:09:00* Test Item Value Reference Range Interpretation [...] REQUIRED (test code = MDIFF) YES WBC [id number] 12:09:00* Test Item Value Reference Range Interpretation [...] code = PLTMORPH) LARGE PLATELETS CBC W/AUTO [id number] 12:06:00* Test Item Value Reference Range Interpretation [...] REQUIRED (test code = MDIFF) YES WBC [id number] 12:06:00* Test Item Value Reference Range Interpretation Comments ANISOCYTOSIS (test code = ANISO) PLATELET ESTIMATE (test code = PLTEST) THOUSAND ADEQUATE CBC W/AUTO [id number] 12:06:00* Test Item Value Reference Range Interpretation [...] REQUIRED (test code = MDIFF) YES WBC [id number] 12:06:00* Test Item Value Reference Range Interpretation Comments ANISOCYTOSIS (test code = ANISO) PLATELET ESTIMATE (test code = PLTEST) THOUSAND ADEQUATE [id number] 08:32:00* Test Item Value Reference Range Interpretation Comments GLUBED (test code = GLUBED) 82 MG/DL 70-110 N Performed by certified necktie operator pockets and pieces at [facility] - XR CHEST 1 [id number] 08:28:00 FAX: Kelly Jacob NP [phone] [place]: St: ADM FAX: Callum Choi MD [phone] FAX: Jaspreet Perea MD [phone] Name: TAI GRANT [facility] : 1960 Age/S: 59/F [address] [place], [place] [address] Unit #: [id number] Loc: [address] [place] [address] Phys: Kelly Jacob NP Acct: [id number] Dis Date: Status: ADM IN PH ONE #: [phone] Exam Date: 02/20/2020 0533 FAX #: [phone] Reason: pneumonia EXAMS: CPT CODE: [id number] XR CHEST 1 V 10327 PROCEDURE: [facility] S[facility]LE V[facility] INDICATION: Pneumonia COMPARISON: Mul tiple [...] lung bases. No definite pneumoni a. SL: [id number] Electronic ally Signed by Fauzia Fontenot on 02/20/2020 at 0828 Reported and signed by: Fernando menezes M.D. CC: Kelly Jacob NP; Callum Beltre MD; Jaspreet mccain MD Technologist: Faraz Palomo RT(R) Trnscrd Date/Time/By: 02/20/2020 (827) : By: [email or web address] Orig Print D/T: S: (8284) PAGE 1 Signed Repo rt COMPREHENSIVE METABOLIC [id number] 06:46:00* Test Item Value Reference Range Interpretation [...] code = ALKP) 83 IUnit/L 20-125 N [id number] 06:46:00* Test Item Value Reference Range Interpretation Comments PHOSPHOROUS (test code = PHOS) 2.8 MG/DL 2.5-4.9 N [id number] 06:46:00* Test Item Value Reference Range Interpretation Comments MAGNESIUM (test code = MAG) 1.70 mg/dL 1.8-2.4 L CALCIUM [id number] 06:46:00* Test Item Value Reference Range Interpretation Comments CALCIUM IONIZED (test code = LAMONT) 1.17 MMOL/L 1.12-1.32 N PROTHROMBIN [id number] 06:32:00* Test Item Value Reference Range Interpretation [...] Infarction (to prevent recurrent infarct). COMPREHENSIVE METABOLIC [id number] 06:27:00* Test Item Value Reference Range Interpretation [...] TOTAL (test code = ALKP) IUnit/L 20-125 [id number] 06:27:00* Test Item Value Reference Range Interpretation Comments PHOSPHOROUS (test code = PHOS) MG/DL 2.5-4.9 [id number] 06:27:00* Test Item Value Reference Range Interpretation Comments MAGNESIUM (test code = MAG) mg/dL 1.8-2.4 CALCIUM [id number] 06:27:00* Test Item Value Reference Range Interpretation Comments CALCIUM IONIZED (test code = LAMONT) 1.17 MMOL/L 1.12-1.32 N CBC W/AUTO [id number] 06:22:00* Test Item Value Reference Range Interpretation [...] DIFF REQUIRED (test code = MDIFF) HGB [id number] 21:37:00* Test Item Value Reference Range Interpretation Comments HEMOGLOBIN (test code = HGB) 8.9 g/dL 11.0-15.0 L HEMATOCRIT (test code = HCT) 28.3 % 33.0-45.0 L [id number] 20:27:00* Test Item Value Reference Range Interpretation Comments GLUBED (test code = GLUBED) 142 MG/DL 70-110 H Performed by certified necktie operator pockets and pieces at [facility] [id number] 17:47:00* Test Item Value Reference Range Interpretation Comments GLUBED (test code = GLUBED) 145 MG/DL 70-110 H Performed by certified necktie operator pockets and pieces at [facility] [id number] 11:46:00* Test Item Value Reference Range Interpretation Comments GLUBED (test code = GLUBED) 116 MG/DL 70-110 H Performed by certified necktie operator pockets and pieces at [facility] CBC W/AUTO [id number] 06:22:00* Test Item Value Reference Range Interpretation [...] REQUIRED (test code = MDIFF) YES WBC [id number] 06:22:00* Test Item Value Reference Range Interpretation [...] PLTMORPH) NORMAL LARGE PLTS SEEN BASIC METABOLIC [id number] 06:21:00* Test Item Value Reference Range Interpretation [...] code = CA) 8.0 mg/dL 8.0-10.5 N [id number] 06:21:00* Test Item Value Reference Range Interpretation Comments PHOSPHOROUS (test code = PHOS) 3.2 MG/DL 2.5-4.9 N [id number] 06:21:00* Test Item Value Reference Range Interpretation Comments MAGNESIUM (test code = MAG) 2.00 mg/dL 1.8-2.4 N CALCIUM [id number] 06:21:00* Test Item Value Reference Range Interpretation Comments CALCIUM IONIZED (test code = LAMONT) 1.21 MMOL/L 1.12-1.32 N CBC W/AUTO [id number] 06:18:00* Test Item Value Reference Range Interpretation [...] REQUIRED (test code = MDIFF) YES WBC [id number] 06:18:00* Test Item Value Reference Range Interpretation Comments ANISOCYTOSIS (test code = ANISO) PLATELET ESTIMATE (test code = PLTEST) THOUSAND ADEQUATE CBC W/AUTO [id number] 06:18:00* Test Item Value Reference Range Interpretation [...] REQUIRED (test code = MDIFF) YES WBC [id number] 06:18:00* Test Item Value Reference Range Interpretation Comments ANISOCYTOSIS (test code = ANISO) PLATELET ESTIMATE (test code = PLTEST) THOUSAND ADEQUATE BASIC METABOLIC [id number] 06:08:00* Test Item Value Reference Range Interpretation [...] CALCIUM (test code = CA) mg/dL 8.0-10.5 [id number] 06:08:00* Test Item Value Reference Range Interpretation Comments PHOSPHOROUS (test code = PHOS) MG/DL 2.5-4.9 [id number] 06:08:00* Test Item Value Reference Range Interpretation Comments MAGNESIUM (test code = MAG) mg/dL 1.8-2.4 CALCIUM [id number] 06:08:00* Test Item Value Reference Range Interpretation Comments CALCIUM IONIZED (test code = LAMONT) 1.21 MMOL/L 1.12-1.32 N CBC W/AUTO [id number] 06:01:00* Test Item Value Reference Range Interpretation [...] MANUAL DIFF REQUIRED (test code = MDIFF) [id number] 05:36:00* Test Item Value Reference Range Interpretation Comments GLUBED (test code = GLUBED) 151 MG/DL 70-110 H Performed by certified necktie operator pockets and pieces at [facility] [id number] 23:39:00* Test Item Value Reference Range Interpretation Comments GLUBED (test code = GLUBED) 78 MG/DL 70-110 N Performed by certified necktie operator pockets and pieces at [facility] [id number] 16:54:00* Test Item Value Reference Range Interpretation Comments GLUBED (test code = GLUBED) 101 MG/DL 70-110 N Performed by certified necktie operator pockets and pieces at [facility] Novel Coronavirus 16:04:00* Test Item Value Reference Range Interpretation Comments Novel Coronavirus 2019 Inhouse (test code = FENNR59OJ) Negative Negative Positive results are indicative of the presence zkQMCI-QmX-8 RNA, clinical correlation with patient historyand other [...] for the identification of SARS-CoV-2 RNA usingthe [employer] M2000 System under the FDA Emergency UseAuthorization. The testing is performed by personneltrained in the procedures for the [employer] M2000 moleculardiagnostic SARS-CoV-2 assay in vitro. Testing Criteria: [id number] 11:59:00* Test Item Value Reference Range Interpretation Comments GLUBED (test code = GLUBED) 80 MG/DL 70-110 N Performed by certified necktie operator pockets and pieces at [facility] CBC W/AUTO [id number] 08:09:00* Test Item Value Reference Range Interpretation [...] (test code = MDIFF) NO BASIC METABOLIC [id number] 07:00:00* Test Item Value Reference Range Interpretation [...] code = CA) 8.2 mg/dL 8.0-10.5 N [id number] 07:00:00* Test Item Value Reference Range Interpretation Comments PHOSPHOROUS (test code = PHOS) 3.0 MG/DL 2.5-4.9 N [id number] 07:00:00* Test Item Value Reference Range Interpretation Comments MAGNESIUM (test code = MAG) 1.90 mg/dL 1.8-2.4 N [id number] 07:00:00* Test Item Value Reference Range Interpretation Comments TROPONIN-I (test code = TROPI) < 0.015 ng/mL 0.000-0.045 N Negative: <= 0.045 Positive: >= 0.046 Correlation with serial results, other cardiac markers andclinical findings is necessary to determine the clinicalsignificance of this result. Results using different methodologies should not be comparedto one another as quantitative results may vary by method. LACTIC ACID 2ND [id number] 06:48:00* Test Item Value Reference Range Interpretation Comments LACTIC ACID 2ND REPEAT (test code = LACT2) 3.9 mmol/L 0.4-1.9 H [id number] 06:26:00* Test Item Value Reference Range Interpretation Comments GLUBED (test code = GLUBED) 124 MG/DL 70-110 H Performed by certified necktie operator pockets and pieces at [facility] [id number] 05:02:00* Test Item Value Reference Range Interpretation [...] V 2020-02-18 04:00:00 FAX: Callum Choi MD [phone] [place]: St: ADM FAX: Gregory Tinoco MD [phone] FAX: Jaspreet Perea MD [phone] Name: TAI GRANT [facility] : 1960 Age/S: 59/F [address] [place] [address] Unit #: [id number] Loc: [place] [address] Phys: Gregory Thurston MD Acct: [id number] Dis Date: Status: ADM IN ONE #: [phone] Exam Date: 02/18/2020 0332 FAX #: [phone] Reason: AFTER RIGHT IJ CVL EXAMS: CPT CODE: [id number] XR CHEST 1 V 41717 EXAM: CR, XR chest one view: 02/18/2020, [...] By: [email or web address] Orig Print D/T: S: 02/18/2020 (1) PAGE 1 Signed Report LACTIC ACID [id number] 03:54:00* Test Item Value Reference Range Interpretation Comments LACTIC ACID REPEAT (test code = LACTR) 4.2 mmol/l 0.4-1.9 HH - CT CHEST W/O [id number] 02:56:00 Name: TAI GRANT [facility] : 1960 Age/S: 59 / F [address] [place] [address] Unit #: [id number] Loc: [place] [address] Phys: Gregory Thurston MD Acct: [id number] Dis Date: Status: ADM IN PHONE #: [phone] Exam Date: 02/18/2020234 FAX #: [phone] Reason: acute sepsis, altered mental status EXAMS: CPT CODE: [id number] CT CHEST W/O CONTRAST 52853 EXAM: CT, CT CHEST W/O CONTRAST: 02/18/2020, [...] Signed Report (CONTINUED) N jim: TAI GRANT [facility] : 0 1960 Age/S: 59 / F [address] [place] [address] Unit #: [id number] Loc: [place] [address] Phys: David Thurston MD Acct: [id number] Dis D ate: Status: ADM IN PHONE #: [phone] Exam Date: 02/18/2020234 FAX #: [phone] Reason: acute sepsis, altered mental status EXAMS: CPT CODE: [id number] CT CHEST W/O CON TRAST 45605 <Continued> LIVER: Enlarged, measures 19.4 cm cephalic [...] 2 Signed Report (CONTINUED) Name: TAI GRANT [facility] : 1960 Age/S: 59 / F [address] [place] [address] Blvd Unit #: [id number] Loc: [place] [address] Phys: Gregory Thurston MD Acct: [id number] Dis Date: Status: ADM IN PHONE #: [phone] Exam Date: 02/18/2020 0235 FAX #: [phone] Reason: acute sepsis, altered mental status EXAMS: CPT CODE: [id number] CT CHEST W/O CONTRAST 58088 < Continued> SL: JSYED-H at 0256 Reported and signed by: German Hughes M.D. CC: Gregory Thurston MD; Jaspreet Jerez MD Technologist:Arthur Bright, RT(R)(CT)(MR) CTDI: DLP: Trnscb Date/Time: 02/18/2020 (255) [email or web address] Orig Print D/T: S: 02/18/2020 (258) PAGE 3 Signed Report - CT ABD PELVIS W/O [id number] 02:56:00 Name: TAI GRANT [facility] : 1960 Age/S: 59 / F [address] [place], [place] [address]vd Unit #: [id number] Loc: [place] [address] Phys: Gregory Thurston MD Acct: [id number] Dis Date: Status: ADM IN PHONE #: [phone] Exam Date: 02/18/2020234 FAX #: [phone] Reason: acute sepsis, altered mental status EXAMS: CPT CODE: [id number] CT ABD PELVIS W/O CONT 84029 EXAM: CT, CT CHEST W/O CONTRAST: 02/18/2020, [...] Signed Report (CONTINUED) N jim: TAI GRANT [facility] : 0 1960 Age/S: 59 / F [address] [facility] [address] Unit #: [id number] Loc: [place] [address] Phys: David Thurston MD Acct: [id number] Dis D ate: Status: ADM IN PHONE #: Exam Date: 02/18/2020234 FAX #: [phone] Reason: acute sepsis, altered mental status EXAMS: CPT CODE: [id number] CT ABD PELVIS W/O CONT 58664 <Continued> LIVER: Enlarged, measures 19.4 cm cephalic [...] hydronephrosis. PAGE 2 Signed Report (CONTINUED) Name: GRANTTAIHUGO BRITO [facility] : 1960 Age/S: 59 / F [address] [facility] Unit #: [id number] Loc: [place] [address] Phys: Gregory Thurston MD Acct: [id number] Dis Date: Status: ADM IN PHONE #: [phone] Exam Date: 02/18/2020234 FAX #: [phone] Reason: acute sepsis, altered mental status EXAMS: CPT CODE: [id number] CT ABD PELVIS W/O CONT 02302 < Continued> SL: FANY at 0256 Reported [...] ng/mL are obtained. - CT HEAD/BRAIN W/O [id number] 02:34:00 Name: TAI GRANT [facility] : 1960 Age/S: 59 / F [address] [place] [address] Blvd Unit #: [id number] Loc: [place] [address] Phys: Gregory Thurston MD Acct: [id number] Dis Date: Status: REG ER PHONE #: [phone] Exam Date: 02/18/2020 0235 FAX #: [phone] Reason: acute sepsis, altered mental status EXAMS: CPT CODE: [id number] CT HEAD/BRAIN W/O CONT 10294 EXAM: CT, CT HEAD/BRAIN W/O CONTRAST: 02/18/2020, [...] Signed Report (CONTIN UED) Name: TAI GRANT [facility] : 1960 Age/S: 59 / F [address] [place] [address] Unit #: [id number] Loc: [place] [address] Phys: Gregory Almaraz MD Acct: [id number] Dis Date: Status: REG ER PHONE #: [phone] Exam Date: 02/18/2020234 FAX #: Reason: acute sepsis, altered mental status EXAMS: CPT CODE: [id number] CT HEAD/ BRAIN W/O CONT 51141 <Continued> SL: JSYED-H at 0234 Reported and signed by: German Hughes M.D. CC: Gregory Thurston MD; Jaspreet Jerez MD Technologist:RT Samina(R)(CT)(MR) CTDI: DLP: Trnscb Date/Time: 02/18/2020 (233) [email or web address] Orig Print D/T: S: 02/18/2020 (023) PAGE 2 Signed Report CBC W/AUTO [id number] 02:20:00* Test Item Value Reference Range Interpretation [...] REQUIRED (test code = MDIFF) NO PLT [id number] 02:20:00* Test Item Value Reference Range Interpretation Comments PLATELET ESTIMATE (test code = PLTEST) 56-70 THOUSAND ADEQUATE PLATELET MORPHOLOGY (test code = PLTMORPH) NORMAL URINALYSIS [id number] 02:15:00* Test Item Value Reference Range Interpretation [...] (test code = RBCU) RBC/HPF 0-3 URINALYSIS [id number] 02:15:00* Test Item Value Reference Range Interpretation [...] (test code = RBCU) RBC/HPF 0-3 URINALYSIS [id number] 02:15:00* Test Item Value Reference Range Interpretation [...] MUCU) 1+ /LPF NONE SEEN Coronavirus 2019 [facility] [id number] 02:15:00* Test Item Value Reference Range Interpretation Comments Coronavirus 2019 [facility] Bedside (test code = [id number]) Negative Negative Is patient requiring admission or transfer? YIndication for rapid COVID-19 testi ng: High Clinical SuspicionBASIC METABOLIC [id number] 02:08:00* Test Item Value Reference Range Interpretation [...] CA) 8.3 mg/dL 8.0-10.5 N HEPATIC FUNCTION [id number] 02:08:00* Test Item Value Reference Range Interpretation [...] code = ALKP) 105 IUnit/L 20-125 N [id number] 02:08:00* Test Item Value Reference Range Interpretation Comments LIPASE (test code = LIP) 80 IUnit/L 73-393 N TSH REFLEX TO [id number] 02:08:00* Test Item Value Reference Range Interpretation Comments TSH REFLEX TO FT4 (test code = TSHREFLEX) 2.34 IU/mL 0.42-5.47 N [id number] 02:08:00* Test Item Value Reference Range Interpretation Comments TROPONIN-I (test code = TROPI) < 0.015 ng/mL 0.000-0.045 N Negative: <= 0.045 Positive: >= 0.046 Correlation with serial results, other cardiac markers andclinical findings is necessary to determine the clinicalsignificance of this result. Results using different methodologies should not be comparedto one another as quantitative results may vary by method. BASIC METABOLIC [id number] 02:04:00* Test Item Value Reference Range Interpretation [...] CA) 8.3 mg/dL 8.0-10.5 N HEPATIC FUNCTION [id number] 02:04:00* Test Item Value Reference Range Interpretation [...] code = ALKP) 105 IUnit/L 20-125 N [id number] 02:04:00* Test Item Value Reference Range Interpretation Comments LIPASE (test code = LIP) 80 IUnit/L 73-393 N TSH REFLEX TO [id number] 02:04:00* Test Item Value Reference Range Interpretation Comments TSH REFLEX TO FT4 (test code = TSHREFLEX) IU/mL 0.42-5.47 [id number] 02:04:00* Test Item Value Reference Range Interpretation Comments TROPONIN-I (test code = TROPI) < 0.015 ng/mL 0.000-0.045 N Negative: <= 0.045 Positive: >= 0.046 Correlation with serial results, other cardiac markers andclinical findings is necessary to determine the clinicalsignificance of this result. Results using different methodologies should not be comparedto one another as quantitative results may vary by method. LACTIC [id number] 01:56:00* Test Item Value Reference Range Interpretation Comments LACTIC ACID (test code = LACT) 3.6 mmol/L 0.4-1.9 H - XR CHEST 1 [id number] 01:48:00 FAX: Gregory Tinoco MD [phone] [place]: St: REG FAX: Jaspreet Perea MD [phone] Name: TAI GRANT [facility] : 1960 Age/S: 59/F [address] [place] [address] Unit #: [id number] Loc: [place] [address] Phys: Gregory Thurston MD Acct: [id number] Dis Date: Status: REG ER PHONE #: [phone] Exam Date: 02/18/2020 0135 FAX #: [phone] Reason: Chest Pain EXAMS: CPT CODE: [id number] XR CHEST 1 V 49671 EXAM: CR, XR chest one view: 02/18/2020, [...] Gregory Thurston MD; Jaspreet Jerez MD Technologist: Zenon Crane RT(R) Trnscrd Date/Time/By: 02/18/2020 (0148) : By: [email or web address] Orig Print D/T: S: 02/18/2020 (0159) PAGE 1 Signed Report CBC W/AUTO [id number] 01:44:00* Test Item Value Reference Range Interpretation [...] REQUIRED (test code = MDIFF) NO PLT [id number] 01:44:00* Test Item Value Reference Range Interpretation Comments PLATELET ESTIMATE (test code = PLTEST) THOUSAND ADEQUATE CBC W/AUTO [id number] 01:44:00* Test Item Value Reference Range Interpretation [...] REQUIRED (test code = MDIFF) NO PLT [id number] 01:44:00* Test Item Value Reference Range Interpretation Comments PLATELET ESTIMATE (test code = PLTEST) THOUSAND ADEQUATE [id number] 21:53:00* Test Item Value Reference Range Interpretation Comments GLUBED (test code = GLUBED) 71 MG/DL 70-110 N Performed by certified necktie operator pockets and pieces at [facility] [id number] 21:28:00* Test Item Value Reference Range Interpretation Comments GLUBED (test code = GLUBED) 60 MG/DL 70-110 L Performed by certified necktie operator pockets and pieces at [facility] [id number] 20:42:00* Test Item Value Reference Range Interpretation Comments GLUBED (test code = GLUBED) 143 MG/DL 70-110 H Performed by certified necktie operator pockets and pieces at [facility] [id number] 16:29:00* Test Item Value Reference Range Interpretation Comments GLUBED (test code = GLUBED) 89 MG/DL 70-110 N Performed by certified necktie operator pockets and pieces at [facility] [id number] 16:29:00* Test Item Value Reference Range Interpretation Comments GLUBED (test code = GLUBED) 67 MG/DL 70-110 L Performed by certified necktie operator pockets and pieces at [facility] [id number] 08:02:00* Test Item Value Reference Range Interpretation Comments GLUBED (test code = GLUBED) 95 MG/DL 70-110 N Performed by certified necktie operator pockets and pieces at [facility] [id number] 07:28:00* Test Item Value Reference Range Interpretation Comments GLUBED (test code = GLUBED) 62 MG/DL 70-110 L Performed by certified necktie operator pockets and pieces at [facility] [id number] 20:29:00* Test Item Value Reference Range Interpretation Comments GLUBED (test code = GLUBED) 85 MG/DL 70-110 N Performed by certified necktie operator pockets and pieces at [facility] CBC W/AUTO [id number] 13:49:00* Test Item Value Reference Range Interpretation [...] (test code = MDIFF) NO BASIC METABOLIC [id number] 13:39:00* Test Item Value Reference Range Interpretation [...] code = CA) 7.8 mg/dL 8.0-10.5 L [id number] 13:14:00* Test Item Value Reference Range Interpretation Comments GLUBED (test code = GLUBED) 156 MG/DL 70-110 H Performed by certified necktie operator pockets and pieces at [facility] [id number] 08:32:00* Test Item Value Reference Range Interpretation Comments GLUBED (test code = GLUBED) 56 MG/DL 70-110 L Performed by certified necktie operator pockets and pieces at [facility] [id number] 08:07:00* Test Item Value Reference Range Interpretation Comments GLUBED (test code = GLUBED) 79 MG/DL 70-110 N Performed by certified necktie operator pockets and pieces at [facility] [id number] 20:53:00* Test Item Value Reference Range Interpretation Comments GLUBED (test code = GLUBED) 110 MG/DL 70-110 N Performed by certified necktie operator pockets and pieces at [facility] [id number] 17:16:00* Test Item Value Reference Range Interpretation Comments GLUBED (test code = GLUBED) 173 MG/DL 70-110 H Performed by certified necktie operator pockets and pieces at [facility] BASIC METABOLIC [id number] 14:27:00* Test Item Value Reference Range Interpretation [...] CA) 8.1 mg/dL 8.0-10.5 N CBC W/AUTO [id number] 12:11:00* Test Item Value Reference Range Interpretation [...] NO - SP DX BONE MARROW BX [id number] 12:09:00 FAX: Jonathan Hendricks [phone] [place]: St: ADM FAX: Fritz Tsang MD [phone] FAX: Jaspreet Perea MD [phone] Name: AUSTINTAI DARYL 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 FINDINGS: Communication Coordinator image shows biopsy needle p rojecting over the left iliac crest. IMPRESSION: Status post fluoroscopic guided bone marrow biopsy. PAGE 1 Signed Report (CONTINUED) FAX: Jonathan Hendricks [phone] [place]: St: ADM FAX: Fritz Tsang MD [phone] FAX: Jaspreet Perea MD [phone] Name: TAI GRANT [facility] : 1960 Age/S: 59 /F [address] [place], [place] [address] Unit #: [id number] Loc: G.6607 [place] [address] Phys: Fritz Webb MD Acct: [id number] Dis Date: atus: ADM IN PHONE #: [phone] Exam Date : 02/13/2020 1210 FAX #: [phone] Reason: panc ytopenia- MDS vs acute leukemia EXAMS: CPT CODE: [id number] [place] ASP [address] <Continued> at 1209 Reported and signed by: Ajay Hollins M.D. CC: Jonathan Vogel MD; Fritz Webb MD; Jaspreet Jerez MD Technologist: Saravanan Villeda, RT(R); Annabella Chavez RT(R)(CT) Trnscrd Date/Time/By: 02/15/2020 (9414) : By: [email or web address] Orig Print D/T: S: 02/15/2020 (0299) PAGE 2 Signed Report [id number] 11:15:00* Test Item Value Reference Range Interpretation Comments GLUBED (test code = GLUBED) 131 MG/DL 70-110 H Performed by certified necktie operator pockets and pieces at [facility] [id number] 09:44:00* Test Item Value Reference Range Interpretation Comments GLUBED (test code = GLUBED) 58 MG/DL 70-110 L Performed by certified necktie operator pockets and pieces at [facility] [id number] 08:09:00* Test Item Value Reference Range Interpretation Comments GLUBED (test code = GLUBED) 91 MG/DL 70-110 N Performed by certified necktie operator pockets and pieces at [facility] [id number] 21:25:00* Test Item Value Reference Range Interpretation Comments GLUBED (test code = GLUBED) 199 MG/DL 70-110 H Performed by certified necktie operator pockets and pieces at [facility] [id number] 17:41:00* Test Item Value Reference Range Interpretation Comments GLUBED (test code = GLUBED) 167 MG/DL 70-110 H Performed by certified necktie operator pockets and pieces at [facility] CBC W/AUTO [id number] 11:23:00* Test Item Value Reference Range Interpretation [...] REQUIRED (test code = MDIFF) YES WBC [id number] 11:23:00* Test Item Value Reference Range Interpretation [...] = PLTMORPH) LARGE PLATELETS FEW CBC W/AUTO [id number] 11:10:00* Test Item Value Reference Range Interpretation [...] REQUIRED (test code = MDIFF) YES WBC [id number] 11:10:00* Test Item Value Reference Range Interpretation Comments ANISOCYTOSIS (test code = ANISO) PLATELET ESTIMATE (test code = PLTEST) THOUSAND ADEQUATE CBC W/AUTO [id number] 11:10:00* Test Item Value Reference Range Interpretation [...] REQUIRED (test code = MDIFF) YES WBC [id number] 11:10:00* Test Item Value Reference Range Interpretation Comments ANISOCYTOSIS (test code = ANISO) PLATELET ESTIMATE (test code = PLTEST) THOUSAND ADEQUATE CBC W/AUTO [id number] 08:33:00* Test Item Value Reference Range Interpretation [...] MANUAL DIFF REQUIRED (test code = MDIFF) [id number] 08:10:00* Test Item Value Reference Range Interpretation Comments GLUBED (test code = GLUBED) 77 MG/DL 70-110 N Performed by certified necktie operator pockets and pieces at [facility] [id number] 08:10:00* Test Item Value Reference Range Interpretation Comments GLUBED (test code = GLUBED) 46 MG/DL 70-110 L Performed by certified necktie operator pockets and pieces at [facility] BASIC METABOLIC [id number] 07:42:00* Test Item Value Reference Range Interpretation [...] = CA) 8.6 mg/dL 8.0-10.5 N PROTHROMBIN [id number] 06:53:00* Test Item Value Reference Range Interpretation [...] Infarction (to prevent recurrent infarct). THROMBOPLASTIN TIME [id number] 06:53:00* Test Item Value Reference Range Interpretation Comments THROMBOPLASTIN TIME PARTIAL (test code = PTT) 46.9 Seconds 25.0-39. 5 H Therapeutic Range: 50.4 - 88.3 Seconds Effective 02/07/2019 [id number] 20:24:00* Test Item Value Reference Range Interpretation Comments GLUBED (test code = GLUBED) 102 MG/DL 70-110 N Performed by certified necktie operator pockets and pieces at [facility] [id number] 16:00:00* Test Item Value Reference Range Interpretation Comments GLUBED (test code = GLUBED) 77 MG/DL 70-110 N Performed by certified necktie operator pockets and pieces at [facility] ACUTE HEPATITIS [id number] 13:08:00* Test Item Value Reference Range Interpretation [...] REACTIVE INDEX NON REACT. AB HEPATITIS B [id number] 13:08:00* Test Item Value Reference Range Interpretation Comments AB HEPATITIS B SURFACE (test code = HBSAB) 12.6 mIU/mL Immunity>9. 9 Verified by repeat analysis Status of Immunity Anti-HBs Level Inconsistent with Immunity 0.0 - 9.9Consistent with Immunity >9.9Performed At: [facility] [address] [id number] Kenny Power MD Ph:[phone] CBC W/AUTO [id number] 12:00:00* Test Item Value Reference Range Interpretation [...] REQUIRED (test code = MDIFF) YES WBC [id number] 12:00:00* Test Item Value Reference Range Interpretation [...] PLATELETS FEW LARGE PLTS SEEN CBC W/AUTO [id number] 11:46:00* Test Item Value Reference Range Interpretation [...] REQUIRED (test code = MDIFF) YES WBC [id number] 11:46:00* Test Item Value Reference Range Interpretation Comments ANISOCYTOSIS (test code = ANISO) PLATELET ESTIMATE (test code = PLTEST) THOUSAND ADEQUATE CBC W/AUTO [id number] 11:46:00* Test Item Value Reference Range Interpretation [...] REQUIRED (test code = MDIFF) YES WBC [id number] 11:46:00* Test Item Value Reference Range Interpretation Comments ANISOCYTOSIS (test code = ANISO) PLATELET ESTIMATE (test code = PLTEST) THOUSAND ADEQUATE BASIC METABOLIC [id number] 08:12:00* Test Item Value Reference Range Interpretation [...] CA) 8.3 mg/dL 8.0-10.5 N CBC W/AUTO [id number] 07:59:00* Test Item Value Reference Range Interpretation [...] MANUAL DIFF REQUIRED (test code = MDIFF) [id number] 07:35:00* Test Item Value Reference Range Interpretation Comments GLUBED (test code = GLUBED) 61 MG/DL 70-110 L Performed by certified necktie operator pockets and pieces at [facility] [id number] 20:40:00* Test Item Value Reference Range Interpretation Comments GLUBED (test code = GLUBED) 74 MG/DL 70-110 N Performed by certified necktie operator pockets and pieces at [facility] [id number] 17:04:00* Test Item Value Reference Range Interpretation Comments GLUBED (test code = GLUBED) 123 MG/DL 70-110 H Performed by certified necktie operator pockets and pieces at [facility] [id number] 16:38:00* Test Item Value Reference Range Interpretation Comments GLUBED (test code = GLUBED) 93 MG/DL 70-110 N Performed by certified necktie operator pockets and pieces at [facility] CBC W/AUTO [id number] 10:38:00* Test Item Value Reference Range Interpretation [...] REQUIRED (test code = MDIFF) NO PLT [id number] 10:38:00* Test Item Value Reference Range Interpretation Comments PLATELET ESTIMATE (test code = PLTEST) 104-130 THOUSAND ADEQUATE PLATELET MORPHOLOGY (test code = PLTMORPH) LARGE PLATELETS LARGE PLTS SEEN [id number] 09:04:00* Test Item Value Reference Range Interpretation Comments GLUBED (test code = GLUBED) 149 MG/DL 70-110 H Performed by certified necktie operator pockets and pieces at [facility] CBC W/AUTO [id number] 07:51:00* Test Item Value Reference Range Interpretation [...] REQUIRED (test code = MDIFF) NO PLT [id number] 07:51:00* Test Item Value Reference Range Interpretation Comments PLATELET ESTIMATE (test code = PLTEST) THOUSAND ADEQUATE CBC W/AUTO [id number] 07:51:00* Test Item Value Reference Range Interpretation [...] REQUIRED (test code = MDIFF) NO PLT [id number] 07:51:00* Test Item Value Reference Range Interpretation Comments PLATELET ESTIMATE (test code = PLTEST) THOUSAND ADEQUATE [id number] 07:50:00* Test Item Value Reference Range Interpretation Comments GLUBED (test code = GLUBED) 100 MG/DL 70-110 N Performed by certified necktie operator pockets and pieces at [facility] [id number] 07:50:00* Test Item Value Reference Range Interpretation Comments GLUBED (test code = GLUBED) 125 MG/DL 70-110 H Performed by certified necktie operator pockets and pieces at [facility] [id number] 07:50:00* Test Item Value Reference Range Interpretation Comments GLUBED (test code = GLUBED) 46 MG/DL 70-110 L Performed by certified necktie operator pockets and pieces at [facility] BASIC METABOLIC [id number] 07:32:00* Test Item Value Reference Range Interpretation [...] code = CA) 8.4 mg/dL 8.0-10.5 N [id number] 07:32:00* Test Item Value Reference Range Interpretation Comments PHOSPHOROUS (test code = PHOS) 5.1 MG/DL 2.5-4.9 H [id number] 22:01:00* Test Item Value Reference Range Interpretation Comments GLUBED (test code = GLUBED) 85 MG/DL 70-110 N Performed by certified necktie operator pockets and pieces at [facility] [id number] 22:01:00* Test Item Value Reference Range Interpretation Comments GLUBED (test code = GLUBED) 107 MG/DL 70-110 N Performed by certified necktie operator pockets and pieces at [facility] [id number] 20:16:00* Test Item Value Reference Range Interpretation Comments GLUBED (test code = GLUBED) 72 MG/DL 70-110 N Performed by certified necktie operator pockets and pieces at [facility] [id number] 18:37:00* Test Item Value Reference Range Interpretation Comments GLUBED (test code = GLUBED) 186 MG/DL 70-110 H Performed by certified necktie operator pockets and pieces at [facility] [id number] 12:03:00* Test Item Value Reference Range Interpretation Comments GLUBED (test code = GLUBED) 98 MG/DL 70-110 N Performed by certified necktie operator pockets and pieces at [facility] AB HIV 1 10:06:00* Test Item Value Reference Range Interpretation Comments AB HIV 1 2 (test code = ACJ62IY) NONREACTIVE INDEX NONREACTIVE CBC W/AUTO [id number] 10:03:00* Test Item Value Reference Range Interpretation [...] REVIEWED, CONSISTENT WITH AUTO DIFF. BASIC METABOLIC [id number] 08:35:00* Test Item Value Reference Range Interpretation [...] CA) 8.0 mg/dL 8.0-10.5 N CBC W/AUTO [id number] 08:01:00* Test Item Value Reference Range Interpretation [...] (test code = MDIFF) - US ABDOMEN [id number] 17:08:00 Name: TAI GRANT [facility] : 1960 Age/S: 59 / F [address] [place] [address] Unit #: [id number] Loc: [place] [address] Phys: Fritz Webb MD Acct: [id number] Dis Date: Status: ADM IN PHONE #: [phone] Exam Date: 02/10/2020 1455 FAX #: [phone] Reason: pancytopenia- eval liver and spleen EXAMS: CPT CODE: [id number] US ABDOMEN COMPLETE 64959 PROCEDURE: Abdominal Ultrasound. Clinical Indication: Pancytopenia, anemia, [...] 1 Signed Report (CONTINUED) Name: TAI GRANT [facility] : 1960 Age/S: 59 / F [address] [place] [address] Unit #: [id number] Loc: [place] [address] Phys: Fritz Webb MD Acct: [id number] Dis Date: Status: ADM IN PHONE #: [phone] Exam D ate: 02/10/2020 145 FAX #: [phone] Reason: pancy topenia- eval liver and spleen EXAMS: CPT CODE: [id number] US ABDOMEN COMPLETE 47864 <Continued> 3. Findings consistent with medical renal disease. 4. Right renal simple cysts. SL: OCO-H at 1708 Reported and signed by: Ashish Cisneros M.D. CC: Fritz Webb MD; Jaspreet Jerez MD; Ganesh Vizcarra MD Technologist: Cristine Salazar RDMS(AB)(OB) Trnscb Date/Time: 02/10/2020 (170) [email or web address] Orig Print D/T: S: 02/10/2020 (8501) Probe: PAGE 2 Signed Report - XR KNEE 1 OR 2 V [id number] 15:55:00 FAX: Jaspreet Perea MD [phone] [place]: St: ADM FAX: Ganesh Escobar MD [phone] Name: TAI GRANT [facility] : 1960 Age/S: 59/F [address] [place] [address] Unit #: [id number] Loc: G.6607 [place] [address] Phys: Ganesh Vizcarra MD Acct: [id number] Dis Date: Status: ADM IN PHONE #: [phone] Exam Date: 02/10/2020 1541 FAX #: [phone] Reason: FALLS WITH SHOULDER/BACK/KNEE PAINS EXAMS: CPT CODE: [id number] XR KNEE 1 [place] [address] Procedure: Bilateral knee radiographs. Clinical Indication: Bilateral [...] Jerez MD; Ganesh Vizcarra MD Technologist: GLENN Bustos(R) Trnscrd Date/Time/By: 02/10/2020 (3189) : By: [email or web address] Orig Print D/T: S: 02/10/2020 (8839) PAGE 1 Signed Report - XR SHOULDER 2 + V BI 2020-02-10 15:54:00 FAX: Jaspreet Perea MD [phone] [place]: St: ADM FAX: Ganesh Escobar MD [phone] Name: TAI GRANTEMILYVISH [facility] : 1960 Age/S: 59/F [address] [place] [address] Unit #: [id number] Loc: [address] [place] [address] Phys: Ganesh Vizcarra MD Acct: [id number] Dis Date: Status: ADM IN PHONE #: [phone] Exam Date: 02/10/2020 1541 FAX #: [phone] Reason: FALLS WITH SHOULDER/BACK/KNEE PAINS EXAMS: CPT CODE: [id number] XR SHOULDER 2 + [place] [address] Procedure: Bilateral shoulder radiographs. Clinical Indication: Bilateral shoulder pain post fall. Comparison: None. FINDINGS: Radiographs of the shoulders, 3 views each, show normal alignment without fractures or dislocations. There are no radio-opaque foreign bodies. IMPRESSION: 1. No acute osseous abnormality observed. SL: OCO-H at 8414 Reported and signed by: Ashish Cisneros M.D. CC: Jaspreet Jerez MD; Ganesh Vizcarra MD Technologist: GLENN Bustos RT(R) Trnscrd Date/Time/By: 02/10/2020 (9743) : By: Emma Orig Print D/T: S: 02/10/2020 (1344) PAGE 1 Signed Report - XR L-SPINE 2/3 VIEWS 2020-02-10 15:52:00 FAX: Jaspreet Perea MD [phone] [place]: St: ADM FAX: Ganesh Escobar MD [phone] Name: AUSTINTAIHUGO BRITO [facility] : 1960 Age/S: 59/F [address] [place] [address] Unit #: [id number] Loc: G.6607 [place] [address] Phys: Ganesh Vizcarra MD Acct: [id number] Dis Date: Status: ADM IN PHONE #: [phone] Exam Date: 02/10/2020 1541 FAX #: [phone] Reason: FALLS WITH SHOULDER/BACK/KNEE PAINS EXAMS: CPT CODE: [id number] XR L-SPINE 2/3 VIEWS 31076 Procedure: Lumbar Spine Radiographs. Clinical Indication: Back [...] N: 1. Degenerative change. SL: OCO-H at 5412 Reported and signed by: Ashish Cisneros M.D. CC: Jaspreet Jerez MD; Tru Vizcarra MD Technologist: GLENN Bustos RT(R) Trnscrd Date/Time/By: 02/10/2020 (7564) : By: [email or web address] Orig Print D/T: S: 02/10/2020 (7124) PAGE 1 Signed Report [id number] 12:38:00* Test Item Value Reference Range Interpretation Comments GLUBED (test code = GLUBED) 89 MG/DL 70-110 N Performed by certified necktie operator pockets and pieces at [facility] [id number] 12:38:00* Test Item Value Reference Range Interpretation Comments GLUBED (test code = GLUBED) 63 MG/DL 70-110 L Performed by certified necktie operator pockets and pieces at [facility] [id number] 11:18:00* Test Item Value Reference Range Interpretation Comments GLUBED (test code = GLUBED) 83 MG/DL 70-110 N Performed by certified necktie operator pockets and pieces at [facility] CBC W/AUTO [id number] 10:42:00* Test Item Value Reference Range Interpretation [...] REQUIRED (test code = MDIFF) YES WBC [id number] 10:42:00* Test Item Value Reference Range Interpretation [...] = PLTEST) 92-115 THOUSAND ADEQUATE CBC W/AUTO [id number] 10:26:00* Test Item Value Reference Range Interpretation [...] REQUIRED (test code = MDIFF) YES WBC [id number] 10:26:00* Test Item Value Reference Range Interpretation Comments ANISOCYTOSIS (test code = ANISO) PLATELET ESTIMATE (test code = PLTEST) THOUSAND ADEQUATE CBC W/AUTO [id number] 10:26:00* Test Item Value Reference Range Interpretation [...] REQUIRED (test code = MDIFF) YES WBC [id number] 10:26:00* Test Item Value Reference Range Interpretation Comments ANISOCYTOSIS (test code = ANISO) PLATELET ESTIMATE (test code = PLTEST) THOUSAND ADEQUATE ACUTE HEPATITIS [id number] 09:26:00* Test Item Value Reference Range Interpretation [...] REACTIVE INDEX NON REACT. AB HEPATITIS B [id number] 09:26:00* Test Item Value Reference Range Interpretation Comments AB HEPATITIS B SURFACE (test code = HBSAB) ACUTE HEPATITIS [id number] 09:00:00* Test Item Value Reference Range Interpretation Comments AB HEPATITIS A IGM (test code = HAVMAB) INDEX NON REACT. AG HEPATITIS B SURFACE (test code = HBSAG) NON REACTIVE INDEX NonRe active AB HEPATITIS B CORE IGM (test code = HBCMAB) INDEX NON REACT . AB HEPATITIS C (test code = HCVAB) INDEX NON REACT. AB HEPATITIS B [id number] 09:00:00* Test Item Value Reference Range Interpretation Comments AB HEPATITIS B SURFACE (test code = HBSAB) CBC W/AUTO [id number] 08:22:00* Test Item Value Reference Range Interpretation [...] MANUAL DIFF REQUIRED (test code = MDIFF) BASIC METABOLIC [id number] 07:47:00* Test Item Value Reference Range Interpretation [...] = LDL) 23 mg/dL 0-100 N <100 [id number] NEAR OPTIMAL/ABOVE [id number] HIGH>ZH=516 VERY HIGH*Guidelines provided by the National Cholesterol EducationProgram Adult Treatment Panel III [id number] 00:34:00* Test Item Value Reference Range Interpretation Comments GLUBED (test code = GLUBED) 144 MG/DL 70-110 H Performed by certified necktie operator pockets and pieces at [facility] - XR FOOT 3 + V [id number] 19:51:00 FAX: Edis Renee DPM [phone] [place]: St: ADM FAX: Jaspreet Perea MD [phone] FAX: Ganesh Escobar MD [phone] Name: TAI GRANT [facility] : 1960 Age/S: 59/F [address] [place] [address] Unit #: [id number] Loc: G.[address] [place] [address] Phys: Edis Leonard DPM Acct: [id number] Dis Date: Status: ADM IN ONE #: [phone] Exam Date: 02/09/2020 1830 FAX #: [phone] Reason: contusion EXAMS: CPT CODE: [id number] XR FOOT 3 [place] [address] Three-view jigna ateral feet. INDICATION: Bilateral foot [...] present. IMPRESSION: No acute bony findings. SL: LEE at 1950 Reported and signed by: Jacques Bailey M.D. CC: Edis Leonard DPM; Jaspreet Jerez MD; Ganesh Vizcarra MD Technologist: Barby Osborne RT(R)(M) Trnscrd Date/Time/By: 02/09/2020 (1950) : By: [email or web address] Orig Print D/T: S: 02/09/2020 (1953) PAGE 1 Signed Report [id number] 18:18:00 * Test Item Value Reference Range Interpretation Comments GLUBED (test code = GLUBED) 85 MG/DL 70-110 N Performed by certified necktie operator pockets and pieces at [facility] TOTAL IRON BINDING [id number] 15:33:00* Test Item Value Reference Range Interpretation Comments SERUM IRON (test code = IRON) 50 mcg/dL 35-150 N TOTAL IRON BINDING CAPACITY (test code = TIBC) 222 mcg/dL 260-445 L UIBC (test code = UIBC) 172 mcg/dL IRON SATURATION (test code = FESAT) 22.5 % 14-34 N VITAMIN [id number] 15:33:00* Test Item Value Reference Range Interpretation Comments VITAMIN B12 (test code = VITB12) 611 pg/mL 193-986 N FOLIC [id number] 15:33:00* Test Item Value Reference Range Interpretation Comments FOLIC ACID (test code = FOL) 3.5 ng/mL 3.1-17.5 N TSH REFLEX TO [id number] 15:33:00* Test Item Value Reference Range Interpretation Comments TSH REFLEX TO FT4 (test code = TSHREFLEX) 3.15 IU/mL 0.42-5.47 N [id number] 15:33:00* Test Item Value Reference Range Interpretation Comments FERRITIN (test code = GIO) 1129.9 ng/mL 11.0-306.8 H HGBA1C%2020-02-09 14:56:00* Test Item Value Reference Range Interpretation Comments HGBA1C% (test code = HGBA1C%) < 3.5 %A1C 4.8-6.0 L CBC W/AUTO [id number] 13:28:00* Test Item Value Reference Range Interpretation [...] REQUIRED (test code = MDIFF) YES WBC [id number] 13:28:00* Test Item Value Reference Range Interpretation [...] LARGE PLATELETS LARGE PLTS SEEN CBC W/AUTO [id number] 13:21:00* Test Item Value Reference Range Interpretation [...] REQUIRED (test code = MDIFF) YES WBC [id number] 13:21:00* Test Item Value Reference Range Interpretation Comments ANISOCYTOSIS (test code = ANISO) PLATELET ESTIMATE (test code = PLTEST) THOUSAND ADEQUATE CBC W/AUTO [id number] 13:21:00* Test Item Value Reference Range Interpretation [...] REQUIRED (test code = MDIFF) YES WBC [id number] 13:21:00* Test Item Value Reference Range Interpretation Comments ANISOCYTOSIS (test code = ANISO) PLATELET ESTIMATE (test code = PLTEST) THOUSAND ADEQUATE BASIC METABOLIC [id number] 12:10:00* Test Item Value Reference Range Interpretation [...] CA) 8.5 mg/dL 8.0-10.5 N CBC W/AUTO [id number] 11:54:00* Test Item Value Reference Range Interpretation [...] code = MDIFF) - XR CHEST 1 [id number] 11:40:00 FAX: Lacy Thompson NP [phone] [place]: St: PRE FAX: Jaspreet Perea MD [phone] Name: TAI GRANTEMILYVISH [facility] [facility] : 1960 Age/S: 59/F [address] [place] [address] Unit #: [id number] Loc: [address] [address] Phys: Lacy Thompson NP Acct: [id number] Dis Date: Status: PRE ER PHONE #: [phone] Exam Date: 02/09/2020 1128 FAX #: [phone] Reason: back pain EXAMS: CPT CODE: [id number] XR CHEST 1 V 54589 Study: - XR CHEST 1 V 02/09/2020 11:19 AM Patient Name: TAI GRANT MR: [id number] : 1960; Age: 59 years y/o Female [...] No acute abnormality as above discussed. SL: [id number] at 1140 Reported and signed by: Adam Andersen M.D. CC: Lacy Thompson MISSION COMMANDER; Jaspreet Jerez MD Lucita hnologist: Ren Herron RT(R) Trnscrd Date/T meenakshi/By: 02/09/2020 (9907) : By: [email or web address] Orig Print D/T: S: 0 (5985) PAGE 1 Signed Report - XR CHEST 2 [id number] 09:20:00 FAX: Jaspreet Perea MD [phone] [place]: O St: REG Name: TAI MANLEY [facility] : [birth year] Age/S: 59/F [address] [facility] Unit #: [id number] Loc: [place] [address] Phys: Jaspreet Jerez MD Acct: [id number] Dis Date: Status: REG CLI PHONE #: [phone] Exam Date: 11/28/2019 09 FAX #: [phone] Reason: PNEUMONIA F/U EXAMS: CPT CODE: [id number] XR CHEST 2 V 73028 REASON FOR EXAM: PNEUMONIA F/U Exam Order [...] IMPRESS ION: No acute cardiopulmonary process. Location: [facility] at 0920 Reported and signed by: Bacilio Hua MD CC: Bautista Jerez MD Technologist: WENDY PEDERSEN LORRAINE RT (R) Trnscrd Date/Time/By: 11/28/2019 (919) : By : [email or web address] Orig Print D/T: S: 11/28/2019 (4681) PAGE 1 Signed Report [id number] 15:48:00* Test Item Value Reference Range Interpretation Comments GLUBED (test code = GLUBED) 129 mg/dL 74-106 H Performed by certified necktie operator pockets and pieces at [facility] ([facility]3] BASIC METABOLIC [id number] 03:54:00* Test Item Value Reference Range Interpretation [...] code = CA) 7.9 mg/dL 8.5-10.1 L [id number] 03:54:00* Test Item Value Reference Range Interpretation Comments PHOSPHORUS (test code = PHOS) 5.9 mg/dL 2.5-4.9 H [id number] 03:54:00* Test Item Value Reference Range Interpretation Comments MAGNESIUM (test code = MAG) 2.1 mg/dL 1.8-2.4 N CBC W/AUTO [id number] 03:12:00* Test Item Value Reference Range Interpretation [...] = MDIFF) NO, ONLY SCAN NEEDED DIFFERENTIAL [id number] 03:12:00* Test Item Value Reference Range Interpretation Comments STAIN ACCEPTABILITY (test code = STN ACCEPTABLE) STAIN ACCEPTABLE POIKILOCYTOSIS (test code = POIK) 1+ ANISOCYTOSIS (test code = ANISO) 1+ MICROCYTOSIS (test code = MICR) 1+ TEAR DROP CELLS (test code = TEAR) 1+ PLATELET ESTIMATE (test code = PLTEST) ADEQUATE PLATELET MORPHOLOGY (test code = PLTMORPH) NORMAL CBC W/AUTO [id number] 01:53:00* Test Item Value Reference Range Interpretation [...] = MDIFF) NO, ONLY SCAN NEEDED DIFFERENTIAL [id number] 01:53:00* Test Item Value Reference Range Interpretation Comments STAIN ACCEPTABILITY (test code = STN ACCEPTABLE) CABOT RINGS (test code = CAB) MORPHOLOGY COMMENT (test code = MOC) PLATELET ESTIMATE (test code = PLTEST) PLATELET MORPHOLOGY (test code = PLTMORPH) CBC W/AUTO [id number] 01:53:00* Test Item Value Reference Range Interpretation [...] = MDIFF) NO, ONLY SCAN NEEDED DIFFERENTIAL [id number] 01:53:00* Test Item Value Reference Range Interpretation Comments STAIN ACCEPTABILITY (test code = STN ACCEPTABLE) MORPHOLOGY COMMENT (test code = MOC) PLATELET ESTIMATE (test code = PLTEST) PLATELET MORPHOLOGY (test code = PLTMORPH) CBC W/AUTO [id number] 01:52:00* Test Item Value Reference Range Interpretation [...] = MDIFF) NO, ONLY SCAN NEEDED DIFFERENTIAL [id number] 01:52:00* Test Item Value Reference Range Interpretation Comments STAIN ACCEPTABILITY (test code = STN ACCEPTABLE) CABOT RINGS (test code = CAB) MORPHOLOGY COMMENT (test code = MOC) PLATELET ESTIMATE (test code = PLTEST) PLATELET MORPHOLOGY (test code = PLTMORPH) CBC W/AUTO [id number] 01:52:00* Test Item Value Reference Range Interpretation [...] = MDIFF) NO, ONLY SCAN NEEDED DIFFERENTIAL [id number] 01:52:00* Test Item Value Reference Range Interpretation Comments STAIN ACCEPTABILITY (test code = STN ACCEPTABLE) CABOT RINGS (test code = CAB) MORPHOLOGY COMMENT (test code = MOC) PLATELET ESTIMATE (test code = PLTEST) PLATELET MORPHOLOGY (test code = PLTMORPH) [id number] 20:54:00* Test Item Value Reference Range Interpretation Comments GLUBED (test code = GLUBED) 150 mg/dL 74-106 H Performed by certified necktie operator pockets and pieces at [facility]3] [id number] 17:05:00* Test Item Value Reference Range Interpretation Comments GLUBED (test code = GLUBED) 111 mg/dL 74-106 H Performed by certified necktie operator pockets and pieces at [facility]3] - XR CHEST 1 [id number] 14:44:00 FAX: Haley Acuña NP [phone] [place]: B St: ADM FAX: Ciara Gibbs MD FAX: Jaspreet Perea MD [phone] Name: TAI GRANT [facility] : 1960 Age/S: 59/F [address] [facility] Unit #: [id number] Loc: [address] [place] [address] Phys: Haley Acuña NP Acct: [id number] Dis Date: Status: ADM IN ONE #: [phone] Exam Date: 11/02/2019 1431 FAX #: [phone] Reason: sob EXAMS: CPT CODE: [id number] XR CHEST 1 V 48630 REASON FOR EXAM: sob EXAM ORDER DATE: 11/02/2019 5:00 AM Ord ering: Haley Acuña NP Attending:Ciara Marino MD Location:[facility] PROCEDURE: - XR CHEST 1 V COMPARISON: 11/01/2019 FINDINGS: Portable AP frontal view of the chest obtained at 2:31 PM shows clear lungs without evidence of consolidation. There is no evidence of effusion. The heart size is minimally enlarged. Pulmonary vasculatures are unremarkable. IMPRESSION: Resolution of the congestive he art failure. at 3263 Reported and signed by: Jasper Blevins M.D. CC: Haley Acuña NP; Ciara Marino MD; Jaspreet Jerez MD Technologist: Wilfred Acosta(R); Mariel Newell RT(R) Trnscrd Date/Time/By: 06/2020 (9003) : By: [place] Orig Print D/T: S: 11/02/2019 (3341) PAGE 1 Signed Report [id number] 12:31:00* Test Item Value Reference Range Interpretation Comments GLUBED (test code = GLUBED) 101 mg/dL 74-106 N Performed by certified necktie operator pockets and pieces at [facility]3] [id number] 06:41:00* Test Item Value Reference Range Interpretation Comments GLUBED (test code = GLUBED) 114 mg/dL 74-106 H Performed by certified necktie operator pockets and pieces at [facility])[3]Notified Nurse~ BASIC METABOLIC [id number] 06:16:00* Test Item Value Reference Range Interpretation [...] CA) 8.4 mg/dL 8.5-10.1 L BASIC METABOLIC [id number] 06:08:00* Test Item Value Reference Range Interpretation [...] code = CA) mg/dL 8.5-10.1 CBC W/AUTO [id number] 02:50:00* Test Item Value Reference Range Interpretation [...] = MDIFF) NO, ONLY SCAN NEEDED DIFFERENTIAL [id number] 02:50:00* Test Item Value Reference Range Interpretation Comments STAIN ACCEPTABILITY (test code = STN ACCEPTABLE) STAIN ACCEPTABLE POLYCHROMASIA (test code = POLC) 1+ POIKILOCYTOSIS (test code = POIK) 1+ TEAR DROP CELLS (test code = TEAR) 1+ PLATELET ESTIMATE (test code = PLTEST) ADEQUATE PLATELET MORPHOLOGY (test code = PLTMORPH) NORMAL BASIC METABOLIC [id number] 02:15:00* Test Item Value Reference Range Interpretation [...] code = CA) 8.2 mg/dL 8.5-10.1 L [id number] 02:15:00* Test Item Value Reference Range Interpretation Comments PHOSPHORUS (test code = PHOS) 3.9 mg/dL 2.5-4.9 N [id number] 02:15:00* Test Item Value Reference Range Interpretation Comments MAGNESIUM (test code = MAG) 1.8 mg/dL 1.8-2.4 N CBC W/AUTO [id number] 01:31:00* Test Item Value Reference Range Interpretation [...] = MDIFF) NO, ONLY SCAN NEEDED DIFFERENTIAL [id number] 01:31:00* Test Item Value Reference Range Interpretation Comments STAIN ACCEPTABILITY (test code = STN ACCEPTABLE) CABOT RINGS (test code = CAB) MORPHOLOGY COMMENT (test code = MOC) PLATELET ESTIMATE (test code = PLTEST) PLATELET MORPHOLOGY (test code = PLTMORPH) CBC W/AUTO [id number] 01:31:00* Test Item Value Reference Range Interpretation [...] = MDIFF) NO, ONLY SCAN NEEDED DIFFERENTIAL [id number] 01:31:00* Test Item Value Reference Range Interpretation Comments STAIN ACCEPTABILITY (test code = STN ACCEPTABLE) CABOT RINGS (test code = CAB) MORPHOLOGY COMMENT (test code = MOC) PLATELET ESTIMATE (test code = PLTEST) PLATELET MORPHOLOGY (test code = PLTMORPH) CBC W/AUTO [id number] 01:31:00* Test Item Value Reference Range Interpretation [...] = MDIFF) NO, ONLY SCAN NEEDED DIFFERENTIAL [id number] 01:31:00* Test Item Value Reference Range Interpretation Comments STAIN ACCEPTABILITY (test code = STN ACCEPTABLE) MORPHOLOGY COMMENT (test code = MOC) PLATELET ESTIMATE (test code = PLTEST) PLATELET MORPHOLOGY (test code = PLTMORPH) CBC W/AUTO [id number] 01:31:00* Test Item Value Reference Range Interpretation [...] = MDIFF) NO, ONLY SCAN NEEDED DIFFERENTIAL [id number] 01:31:00* Test Item Value Reference Range Interpretation Comments STAIN ACCEPTABILITY (test code = STN ACCEPTABLE) CABOT RINGS (test code = CAB) MORPHOLOGY COMMENT (test code = MOC) PLATELET ESTIMATE (test code = PLTEST) PLATELET MORPHOLOGY (test code = PLTMORPH) ARTERIAL BLOOD [id number] 23:28:00* Test Item Value Reference Range Interpretation [...] called to and read back by ANDRE uBrr 23:27 - 11/01/2019; by [id number] ABG O2 SATURATION (test code = SATA) [...] = O2CT) 14.4 % vol 18.0-22.0 L [id number] 19:44:00* Test Item Value Reference Range Interpretation Comments GLUBED (test code = GLUBED) 104 mg/dL 74-106 N Performed by certified necktie operator pockets and pieces at [facility]3] [id number] 15:10:00* Test Item Value Reference Range Interpretation Comments GLUBED (test code = GLUBED) 132 mg/dL 74-106 H Performed by certified necktie operator pockets and pieces at [facility]3] [id number] 10:14:00* Test Item Value Reference Range Interpretation Comments GLUBED (test code = GLUBED) 121 mg/dL 74-106 H Performed by certified necktie operator pockets and pieces at [facility]3] [id number] 09:52:00* Test Item Value Reference Range Interpretation Comments GLUBED (test code = GLUBED) 116 mg/dL 74-106 H Performed by certified necktie operator pockets and pieces at [facility]3] [id number] 07:12:00* Test Item Value Reference Range Interpretation Comments GLUBED (test code = GLUBED) 104 mg/dL 74-106 N Performed by certified necktie operator pockets and pieces at [facility]3] BASIC METABOLIC [id number] 07:11:00* Test Item Value Reference Range Interpretation [...] CA) 7.8 mg/dL 8.5-10.1 L BASIC METABOLIC [id number] 07:10:00* Test Item Value Reference Range Interpretation [...] CA) mg/dL 8.5-10.1 - XR CHEST 1 [id number] 07:06:00 FAX: John Mckeon [phone] [place]: B St: ADM FAX: Ciara Gibbs MD FAX: Jaspreet Perea MD [phone] Name: TAI GRANT [facility] : 1960 Age/S: 59/F [address] [facility] Unit #: [id number] Loc: V.[address] [place] [address] Phys: John Mckeon Acct: [id number] Dis Date: Status: ADM IN ONE #: [phone] Exam Date: 11/01/2019 0500 FAX #: [phone] Reason: updated pulm view EXAMS: CPT CODE: [id number] XR CHEST 1 V 06897 HISTORY: Respi ratory failure. COMPARISON: Previous day. Location: TH. Patchy bilateral infiltrates, greater on the right are unchang ed. Bibasal subsegmental atelectasis. No effusion or congestion. Cardiomegaly. IMPRESSION: Patchy bilateral inf iltrates, greater on the right are unchanged. at 0706 Reported and signed by: Taran Otriz M.D. CC: John Mckeon; Merna Marino MD; Jaspreet Jerez MD Technologist: Mary Valdez Trnscrd Date/Time/By: 11/01/2019 (705) : By: [email or web address] Orig Print D/T: S: 11/01/2019 (09) PAGE 1 Signed Report BASIC METABOLIC [id number] 02:07:00* Test Item Value Reference Range Interpretation [...] code = CA) 8.2 mg/dL 8.5-10.1 L [id number] 02:07:00* Test Item Value Reference Range Interpretation Comments MAGNESIUM (test code = MAG) 1.9 mg/dL 1.8-2.4 N BASIC METABOLIC [id number] 01:55:00* Test Item Value Reference Range Interpretation [...] CALCIUM (test code = CA) mg/dL 8.5-10.1 [id number] 01:55:00* Test Item Value Reference Range Interpretation Comments MAGNESIUM (test code = MAG) mg/dL 1.8-2.4 CBC W/O [id number] 01:45:00* Test Item Value Reference Range Interpretation [...] code = MPV) 9.8 fL 6.7-11.0 N [id number] 21:27:00* Test Item Value Reference Range Interpretation Comments GLUBED (test code = GLUBED) 170 mg/dL 74-106 H Performed by certified necktie operator pockets and pieces at [facility]3] [id number] 16:38:00* Test Item Value Reference Range Interpretation Comments GLUBED (test code = GLUBED) 139 mg/dL 74-106 H Performed by certified necktie operator pockets and pieces at [facility]3] [id number] 11:39:00* Test Item Value Reference Range Interpretation Comments GLUBED (test code = GLUBED) 173 mg/dL 74-106 H Performed by certified necktie operator pockets and pieces at [facility]3] CBC W/AUTO [id number] 11:35:00* Test Item Value Reference Range Interpretation [...] = MDIFF) NO, ONLY SCAN NEEDED DIFFERENTIAL [id number] 11:35:00* Test Item Value Reference Range Interpretation Comments STAIN ACCEPTABILITY (test code = STN ACCEPTABLE) STAIN ACCEPTABLE ANISOCYTOSIS (test code = ANISO) 1+ PLATELET ESTIMATE (test code = PLTEST) DECREASED PLATELET MORPHOLOGY (test code = PLTMORPH) NORMAL CBC W/AUTO [id number] 11:11:00* Test Item Value Reference Range Interpretation [...] = MDIFF) NO, ONLY SCAN NEEDED DIFFERENTIAL [id number] 11:11:00* Test Item Value Reference Range Interpretation Comments STAIN ACCEPTABILITY (test code = STN ACCEPTABLE) CABOT RINGS (test code = CAB) MORPHOLOGY COMMENT (test code = MOC) PLATELET ESTIMATE (test code = PLTEST) PLATELET MORPHOLOGY (test code = PLTMORPH) CBC W/AUTO [id number] 11:11:00* Test Item Value Reference Range Interpretation [...] = MDIFF) NO, ONLY SCAN NEEDED DIFFERENTIAL [id number] 11:11:00* Test Item Value Reference Range Interpretation Comments STAIN ACCEPTABILITY (test code = STN ACCEPTABLE) CABOT RINGS (test code = CAB) MORPHOLOGY COMMENT (test code = MOC) PLATELET ESTIMATE (test code = PLTEST) PLATELET MORPHOLOGY (test code = PLTMORPH) CBC W/AUTO [id number] 11:11:00* Test Item Value Reference Range Interpretation [...] = MDIFF) NO, ONLY SCAN NEEDED DIFFERENTIAL [id number] 11:11:00* Test Item Value Reference Range Interpretation Comments STAIN ACCEPTABILITY (test code = STN ACCEPTABLE) MORPHOLOGY COMMENT (test code = MOC) PLATELET ESTIMATE (test code = PLTEST) PLATELET MORPHOLOGY (test code = PLTMORPH) CBC W/AUTO [id number] 11:10:00* Test Item Value Reference Range Interpretation [...] = MDIFF) NO, ONLY SCAN NEEDED DIFFERENTIAL [id number] 11:10:00* Test Item Value Reference Range Interpretation Comments STAIN ACCEPTABILITY (test code = STN ACCEPTABLE) CABOT RINGS (test code = CAB) MORPHOLOGY COMMENT (test code = MOC) PLATELET ESTIMATE (test code = PLTEST) PLATELET MORPHOLOGY (test code = PLTMORPH) [id number] 07:51:00* Test Item Value Reference Range Interpretation Comments GLUBED (test code = GLUBED) 115 mg/dL 74-106 H Performed by certified necktie operator pockets and pieces at [facility]3] - XR CHEST 1 [id number] 06:48:00 FAX: John Mckeon [phone] [place]: St: ADM FAX: Ciara Gibbs MD FAX: Jaspreet Perea MD [phone] Name: TAI GRANT [facility] : 1960 Age/S: 59/F [address] [facility] Unit #: [id number] Loc: V.S26 [place] [address] Phys: John Mckeon Acct: [id number] Dis Date: Status: ADM IN [facility] #: [phone] Exam Date: 10/31/2019 0511 FAX #: [phone] Reason: PULMONARY EDEMA EXAMS: CPT CODE: [id number] XR CHEST 1 V 43418 HISTORY: Pulmo nary edema. COMPARISON: CT chest [...] Marino MD; Jaspreet Jerez MD Technologist: ROBERTH WADE JR; Mary Valdez Trnscrd Date/Time/By: 10/31/2019 (0648) : By: [email or web address] Orig Print D/T: S: 10/31/2019 (0651) PAGE 1 Signed Report [id number] 01:56:00* Test Item Value Reference Range Interpretation Comments TROPONIN-I (test code = TROPI) <0.015 ng/mL 0-0.045 N COMMENTS TO TRAIN PLANNER: COLLECT 3 HOURS AFTER PREVIOUS SAMPLEBASIC METABOLIC [id number] 01:54:00* Test Item Value Reference Range Interpretation [...] code = CA) 7.6 mg/dL 8.5-10.1 L [id number] 01:54:00* Test Item Value Reference Range Interpretation Comments PHOSPHORUS (test code = PHOS) 6.1 mg/dL 2.5-4.9 H [id number] 01:54:00* Test Item Value Reference Range Interpretation Comments MAGNESIUM (test code = MAG) 2.0 mg/dL 1.8-2.4 N CALCIUM [id number] 01:54:00* Test Item Value Reference Range Interpretation Comments CALCIUM IONIZED (test code = LAMONT) 1.08 mmol/L 1.12-1.32 L BASIC METABOLIC [id number] 01:53:00* Test Item Value Reference Range Interpretation [...] CALCIUM (test code = CA) mg/dL 8.5-10.1 [id number] 01:53:00* Test Item Value Reference Range Interpretation Comments PHOSPHORUS (test code = PHOS) mg/dL 2.5-4.9 [id number] 01:53:00* Test Item Value Reference Range Interpretation Comments MAGNESIUM (test code = MAG) mg/dL 1.8-2.4 CALCIUM [id number] 01:53:00* Test Item Value Reference Range Interpretation Comments CALCIUM IONIZED (test code = LAMONT) 1.08 mmol/L 1.12-1.32 L BASIC METABOLIC [id number] 01:45:00* Test Item Value Reference Range Interpretation [...] CALCIUM (test code = CA) mg/dL 8.5-10.1 [id number] 01:45:00* Test Item Value Reference Range Interpretation Comments PHOSPHORUS (test code = PHOS) mg/dL 2.5-4.9 [id number] 01:45:00* Test Item Value Reference Range Interpretation Comments MAGNESIUM (test code = MAG) mg/dL 1.8-2.4 CALCIUM [id number] 01:45:00* Test Item Value Reference Range Interpretation Comments CALCIUM IONIZED (test code = LAMONT) mmol/L 1.12-1.32 CBC W/AUTO [id number] 01:42:00* Test Item Value Reference Range Interpretation [...] DIFF REQUIRED (test code = MDIFF) NO [id number] 20:24:00* Test Item Value Reference Range Interpretation Comments GLUBED (test code = GLUBED) 220 mg/dL 74-106 H Performed by certified necktie operator pockets and pieces at [facility]3] LACTIC [id number] 18:22:00* Test Item Value Reference Range Interpretation Comments LACTIC ACID (test code = LACT) 2.3 mmol/L 0.4-1.9 HH Results called to [id number] by V.LAB.SPR 10/30/19 1822Critical results verified and read back by Nurse? Y [id number] 15:05:00* Test Item Value Reference Range Interpretation Comments GLUBED (test code = GLUBED) 150 mg/dL 74-106 H Performed by certified necktie operator pockets and pieces at [facility]3] AG HEPAT B [id number] 12:30:00* Test Item Value Reference Range Interpretation Comments AG HEPAT B SURF (test code = HBSAG) Nonreactive Index Nonreactive LACTIC [id number] 12:10:00* Test Item Value Reference Range Interpretation Comments LACTIC ACID (test code = LACT) 3.1 mmol/L 0.4-1.9 HH Results called to AQH1379 by V.LAB.WJC 10/30/19 1208Critical results verified and read back by Nurse? Y [id number] 12:05:00* Test Item Value Reference Range Interpretation Comments TROPONIN-I (test code = TROPI) <0.015 ng/mL 0-0.045 N COMMENTS TO TRAIN PLANNER: COLLECT 3 HOURS AFTER PREVIOUS [id number] 09:42:00* Test Item Value Reference Range Interpretation Comments GLUBED (test code = GLUBED) 149 mg/dL 74-106 H Performed by certified necktie operator pockets and pieces at [facility]3] - CT CHEST [id number] 08:08:00 Name: TAI GRANT [facility] : 1960 Age/S: 59 / F [address] [facility] Unit #: [id number] Loc: [place] [address] Phys: Andre Woods MD Acct: [id number] Dis Date: Status: ADM IN PHONE #: [phone] Exam Date: 10/30/2019 0751 FAX #: [phone] Reason: concern aortic aneurysm EXAMS: CPT CODE: [id number] CT CHEST W/CONTRAST 51523 HISTORY: Concern for aortic aneurysm. COMPARISON: None [...] (807) [email or web address] Orig Print D/T: S: 10/30/2019 (73) PAGE 1 Signed Report - XR CHEST 1 [id number] 05:27:00 FAX: Jaspreet Perea MD [phone] [place]: St: ADM FAX: Andre Woods MD Name: TAI GRANT [facility] : 1960 Age/S: 59/F [address] [facility] Unit #: [id number] Loc: [place] [address] Phys: Andre Woods MD Acct: [id number] Dis Date: Status: ADM IN PHONE #: [phone] Exam Date: 10/30/2019521 FAX #: [phone] Reason: ETT readjustment EXAMS: CPT CODE: [id number] XR CHEST 1 V 94595 DICTATION LOCATION: 8 HISTORY: Female, 59 years [...] nd further assessment with CT scan. at 0527 Reported and sig ronnie by: Whitney Peterson MD CC: Jaspreet Jerez MD; Farideh Woods MD Technologist: Mary Valdez Trnscrd Date/Time/By: 10/30/2019 (0579) : By: BobCLW O rig Print D/T: S: 10/30/2019 (3851) PAGE 1 Signed Report ARTERIAL BLOOD GAS 2019-10-30 05:18:00* Test Item Value Reference Range Interpretation Comments ARTERIAL BLOOD GAS PH (test code = PHA) 7.17 7.35-7.45 L L Results called to and read back by ANDRE Burr 05:18 - 10/30/2019; by [id number] ARTERIAL BLOOD GAS PCO2 (test code = PCO2A) 51.1 mm Hg 35-45 H ARTERIAL BLOOD GAS PO2 (test code = PO2A) 119.9 mmHg 80-100 H BICARBONATE TOTAL HCO3 (test code = HCO3) 18.1 mmol/L 23.0-27.0 L BASE EXCESS (test code = МАРИЯ) -10.3 mmol/L -3.0-5.0 LL Results called to and read back by ANDRE Burr 05:18 - 10/30/2019; by [id number] ABG O2 SATURATION (test code = SATA) [...] into account the patients history. B-TYPE NATRIURETIC [id number] 05:05:00* Test Item Value Reference Range Interpretation Comments B-TYPE NATRIURETIC PEPTIDE (test code = BNP) 90.68 pgram/mL 0-100 N BASIC METABOLIC [id number] 05:05:00* Test Item Value Reference Range Interpretation [...] CA) 7.7 mg/dL 8.5-10.1 L HEPATIC FUNCTION [id number] 05:05:00* Test Item Value Reference Range Interpretation [...] reference range due to change in reagent. [id number] 05:05:00* Test Item Value Reference Range Interpretation Comments MAGNESIUM (test code = MAG) 2.0 mg/dL 1.8-2.4 N [id number] 05:05:00* Test Item Value Reference Range Interpretation Comments TROPONIN-I (test code = TROPI) <0.015 ng/mL 0-0.045 N [id number] 05:05:00* Test Item Value Reference Range Interpretation Comments SALICYLATE (test code = LIZABETH) < 1.7 mg/dL 2.8-20.0 L VALPROIC ACID (DEPAKENE)2019-10-30 05:05:00* Test Item Value Reference Range Interpretation Comments VALPROIC ACID (DEPAKENE) (test code = VALP) <3.0 mcg/mL 50.0-100.0 L CBC W/AUTO [id number] 04:56:00* Test Item Value Reference Range Interpretation [...] = MDIFF) NO, ONLY SCAN NEEDED DIFFERENTIAL [id number] 04:56:00* Test Item Value Reference Range Interpretation Comments STAIN ACCEPTABILITY (test code = STN ACCEPTABLE) STAIN ACCEPTABLE POLYCHROMASIA (test code = POLC) 1+ ANISOCYTOSIS (test code = ANISO) 1+ MACROCYTOSIS (test code = MACR) 1+ PLATELET ESTIMATE (test code = PLTEST) ADEQUATE PLATELET MORPHOLOGY (test code = PLTMORPH) NORMAL - XR CHEST 1 [id number] 04:47:00 FAX: Andre Woods MD [place]: B St: REG Name: TAI MANLEY [facility] Hospital : 04/27/19 [birth year] Age/S: 59/F [address] [facility] Unit #: [id number] Loc: [place] [address] Phys: Andre Woods MD Acct: [id number] Dis Date: Status: REG ER PHONE #: [phone] Exam Date: 10/30/2019 043 FAX #: [phone] Reason: CODE SEPSIS EXAMS: CPT CODE: [id number] XR CHEST 1 V 78154 DICTATION LOCATION: H48 HISTORY: Female, 59 years [...] by Whitney Peterson MD on 03/2020 at 1207 Reported and signed by: Whitney Peterson MD CC: Andre Woods MD Technologist: Mary Valdez Trnscrd Brent e/Time/By: 10/30/2019 (044) : By: Maurice Orig Print D/T: S: 2019 (045) PAGE 1 Signed Report - XR CHEST 1 [id number] 04:47:00 FAX: Andre Woods MD [place]: B St: ADM Name: TAI [facility] : [birth year] Age/S: 59/F [address] [facility] Unit #: [id number] Loc: [address] [address] Phys: Andre Woods MD Acct: [id number] Dis Date: Status: ADM IN PHONE #: [phone] Exam Date: 10/30/2019 043 FAX #: [phone] Reason: CODE SEPSIS EXAMS: CPT CODE: [id number] XR CHEST 1 V 18219 DICTATION LOCATION: H48 HISTORY: Female, 59 years [...] 2019 (045) PAGE 1 Signed Report LACTIC [id number] 04:46:00* Test Item Value Reference Range Interpretation Comments LACTIC ACID (test code = LACT) 2.0 mmol/L 0.4-1.9 H Results called to [id number] by VZULEMA 10/30/19 0446Critical results verified and read back by Nurse? Y BASIC METABOLIC [id number] 04:45:00* Test Item Value Reference Range Interpretation [...] CA) 7.7 mg/dL 8.5-10.1 L HEPATIC FUNCTION [id number] 04:45:00* Test Item Value Reference Range Interpretation [...] TOTAL (test code = ALKP) IUnit/L 45-117 [id number] 04:45:00* Test Item Value Reference Range Interpretation Comments MAGNESIUM (test code = MAG) 2.0 mg/dL 1.8-2.4 N [id number] 04:45:00* Test Item Value Reference Range Interpretation Comments TROPONIN-I (test code = TROPI) ng/mL 0-0.045 [id number] 04:45:00* Test Item Value Reference Range Interpretation Comments SALICYLATE (test code = LIZABETH) mg/dL 2.8-20.0 VALPROIC ACID (DEPAKENE)2019-10-30 04:45:00* Test Item Value Reference Range Interpretation Comments VALPROIC ACID (DEPAKENE) (test code = VALP) mcg/mL 50.0-100.0 PROTHROMBIN [id number] 04:41:00* Test Item Value Reference Range Interpretation [...] (2.5-3.5) IS PATIENT ON ANTICOAGULANTS? NTHROMBOPLASTIN TIME [id number] 04:41:00* Test Item Value Reference Range Interpretation Comments THROMBOPLASTIN TIME PARTIAL (test code = PTT) 36.4 seconds 25.0-36. 5 N IS PATIENT ON ANTICOAGULANTS? NBASIC METABOLIC [id number] 04:39:00* Test Item Value Reference Range Interpretation [...] code = CA) mg/dL 8.5-10.1 HEPATIC FUNCTION [id number] 04:39:00* Test Item Value Reference Range Interpretation [...] TOTAL (test code = ALKP) IUnit/L 45-117 [id number] 04:39:00* Test Item Value Reference Range Interpretation Comments MAGNESIUM (test code = MAG) mg/dL 1.8-2.4 [id number] 04:39:00* Test Item Value Reference Range Interpretation Comments TROPONIN-I (test code = TROPI) ng/mL 0-0.045 [id number] 04:39:00* Test Item Value Reference Range Interpretation Comments SALICYLATE (test code = LIZABETH) mg/dL 2.8-20.0 VALPROIC ACID (DEPAKENE)2019-10-30 04:39:00* Test Item Value Reference Range Interpretation Comments VALPROIC ACID (DEPAKENE) (test code = VALP) mcg/mL 50.0-100.0 CT MARIA ELENA REN/MASHA [id number] 14:27:00 [place] [address] Patient Name: TAI GRANT MR #: [id number] : 1960 Age/Sex: 59/F Req #: [id number] Adm Physician: Ordered by: MERI LEE, JASPREET Ron MD Report #: [id number] Location: CT Room/Bed: Procedure: 1119-[address]/CT MAXIO FAC/PARANMENDEZ WO Exam Date: 09/12/19 Carmen jamil Time: [...] 143 COPY TO: JASPREET OBRIEN CT BRAIN [id number] 14:26:00 [place] [address] Patient Name: TAI GRANT MR #: [id number] : 1960 Age/Sex: 59/F Req #: [id number] Adm Physician: Ordered by: MERI LEE, JASPREET [...] PM D ictated By: RANDALL HAQUE MD 142 Transcribed By: ROBI on 09/12/19 1427 COPY TO: JASPREET JEREZ [id number] 14:14:00* Test Item Value Reference Range Interpretation Comments GLUBED (test code = GLUBED) 260 mg/dL 70-110 H [id number] 11:32:00* Test Item Value Reference Range Interpretation Comments GLUBED (test code = GLUBED) 149 mg/dL 70-110 H [id number] 06:53:00* Test Item Value Reference Range Interpretation Comments GLUBED (test code = GLUBED) 113 mg/dL 70-110 H [id number] 17:00:00* Test Item Value Reference Range Interpretation Comments GLUBED (test code = GLUBED) 127 mg/dL 70-110 H [id number] 08:33:00* Test Item Value Reference Range Interpretation Comments GLUBED (test code = GLUBED) 105 mg/dL 70-110 N BASIC METABOLIC [id number] 07:30:00* Test Item Value Reference Range Interpretation [...] CA) 7.4 mg/dl 8.0-10.5 L CBC W/AUTO [id number] 07:28:00* Test Item Value Reference Range Interpretation [...] code = BA#) 0.0 K/mm3 0.0-0.2 N [id number] 18:55:00* Test Item Value Reference Range Interpretation Comments GLUBED (test code = GLUBED) 223 mg/dL 70-110 H COLON [id number] 14:56:00 RUN DATE: 01/24/[address] [facility] - Lab PAGE 1 RUN TIME: 1456 Specimen Inqui ry RUN USER: INTERFACE PATIENT: TAI GRANT ACCT #: [id number] LOC: [place] U #: [id number] AGE/SX: 58/F ROOM: [facility] RE01/16/19REG DR: Guanakito Ortez : 64 BED: 1 DIS: STATUS: ADM IN TLOC: SPEC #: [id number] RECD: 01/23/19 STATUS: NITO REKumar #: [id number] JAZMINE: 01/23/19- SUBM DR: Guanakito Ortez MD ENTERED: 01/23/19 SP TYPE: COLONBX OTHR DR: No Loreta imani or Family Physician Self Referred Judith Yin MD See Bertha lee MDORDERED: REQUEST COPIES TO: No Primary or Family Physician Self Referred Guanakito Ortez MD [address] [place] [address] [email or web address]) Judith Lai MD [address] [facility] [address] [place] [address] OTHER PHONE [phone] (CELL) Bertha Martin MD [address] [place] [address] PROCEDURES: REQUEST (01/23/19-1531) TISSUES: A. COLON, NOS - RANDOM COLON BX B. COLON, NOS - DESC.COLON POLYP CLINICAL HISTORY Anemia, +FOBT, diarrhea, descending colon polyp, internal hemorrhoids FINAL DIAGNOSIS A. RANDOM COLON BIOPSIES: MILD NON SPECIFIC C HRONIC COLITIS. NO THICKENING OF BASEMENT MEMBRANE SEEN ON TRICHROME STA IN. B. DESCENDING COLON POLYP: CONTINU ED ON NEXT PAGE RUN DATE: 01/24/19 [facility] nd - Lab PAGE 2 RUN TIME: 1456 Specimen Inquiry RUN USER: INTERFACE SPEC #: [id number] PAT IENT: TAI GRANT #[id number] (Continued) FINAL DIAGNOSIS (Continued) TUBULAR ADENOMA. CPT COD E: 06513 X 2, 76628 MACROSCOPIC A. Specimen is received in formalin [...] 1 V 2019-01-24 14:41:00 FAX: Guanakito Jennings [phone] [place]: St: [facility] FAX: Oneyda Dwyer MD [phone] Name: TAI GRANT [facility] : 1960 Age/S: 58/F [address] [facility] Unit #: [id number] Loc: [address] Phys: [place] [address] Acct: [id number] Dis Date: Status: ADM IN PHONE #: [phone] Exam Date: 01/24/2019 1420 FAX #: [phone] Reason: abdominal pain EXAMS: CPT CODE: [id number] XR ABDOMEN 1 V 69369 REASON FOR EXAM: Abdominal pain. Abdomen, single [...] MD; Oneyda Reynaga MD Technologist: JUANCARLOS WALLACE Trnokrd Date/Time/By: 01/24/2019 (4238) : By: [facility] PAGE 1 Signed Report FAX: Guanakito Jennings [phone] [place]: St: ADM FAX: Oneyda Dwyer MD [phone] Name: TAI GRANT [facility] : 1960 A ge/S: 58/F [address] [facility] Unit #: [id number] Loc : [address] Phys: [place] [address] Acct: [id number] Dis Date: Status: ADM IN PHONE #: [phone] E xam Date: 01/24/2019 1420 FAX #: [phone] Reas on: abdominal pain EXAMS: CPT CODE: [id number] XR ABDOMEN 1 V 00499 <Continued> Orig Print D/T: S: 01/24/2019 (1037) PAGE 2 Signed Report [id number] 07:46:00* Test Item Value Reference Range Interpretation Comments GLUBED (test code = GLUBED) 94 mg/dL 70-110 N CBC W/AUTO [id number] 07:44:00* Test Item Value Reference Range Interpretation [...] BA#) 0.0 K/mm3 0.0-0.2 N BASIC METABOLIC [id number] 07:43:00* Test Item Value Reference Range Interpretation [...] code = CA) 7.9 mg/dl 8.0-10.5 L [id number] 00:59:00* Test Item Value Reference Range Interpretation Comments GLUBED (test code = GLUBED) 136 mg/dL 70-110 H [id number] 20:07:00* Test Item Value Reference Range Interpretation Comments GLUBED (test code = GLUBED) 131 mg/dL 70-110 H [id number] 16:15:00* Test Item Value Reference Range Interpretation Comments GLUBED (test code = GLUBED) 94 mg/dL 70-110 N [id number] 11:19:00* Test Item Value Reference Range Interpretation Comments GLUBED (test code = GLUBED) 86 mg/dL 70-110 N BASIC METABOLIC [id number] 07:32:00* Test Item Value Reference Range Interpretation [...] code = CA) 9.3 mg/dl 8.0-10.5 N [id number] 07:32:00* Test Item Value Reference Range Interpretation Comments PHOSPHOROUS (test code = PHOS) 3.9 mg/dl 2.5-4.9 N [id number] 07:32:00* Test Item Value Reference Range Interpretation Comments MAGNESIUM (test code = MAG) 2.8 mg/dl 1.8-2.4 H CBC W/AUTO [id number] 07:30:00* Test Item Value Reference Range Interpretation [...] code = BA#) 0.0 K/mm3 0.0-0.2 N [id number] 07:19:00* Test Item Value Reference Range Interpretation Comments GLUBED (test code = GLUBED) 70 mg/dL 70-110 N [id number] 21:42:00* Test Item Value Reference Range Interpretation Comments GLUBED (test code = GLUBED) 113 mg/dL 70-110 H [id number] 16:51:00* Test Item Value Reference Range Interpretation Comments GLUBED (test code = GLUBED) 90 mg/dL 70-110 N [id number] 11:21:00* Test Item Value Reference Range Interpretation Comments GLUBED (test code = GLUBED) 181 mg/dL 70-110 H COMPREHENSIVE METABOLIC [id number] 07:55:00* Test Item Value Reference Range Interpretation [...] = ALKP) 155 Units/L 50.0-136 .0 H [id number] 07:55:00* Test Item Value Reference Range Interpretation Comments MAGNESIUM (test code = MAG) 2.0 mg/dl 1.8-2.4 N [id number] 07:20:00* Test Item Value Reference Range Interpretation Comments GLUBED (test code = GLUBED) 119 mg/dL 70-110 H CBC W/AUTO [id number] 07:20:00* Test Item Value Reference Range Interpretation [...] code = BA#) 0.0 K/mm3 0.0-0.2 N [id number] 16:04:00* Test Item Value Reference Range Interpretation Comments GLUBED (test code = GLUBED) 108 mg/dL 70-110 N [id number] 11:49:00* Test Item Value Reference Range Interpretation Comments GLUBED (test code = GLUBED) 123 mg/dL 70-110 H [id number] 07:12:00* Test Item Value Reference Range Interpretation Comments GLUBED (test code = GLUBED) 98 mg/dL 70-110 N [id number] 23:04:00* Test Item Value Reference Range Interpretation Comments GLUBED (test code = GLUBED) 232 mg/dL 70-110 H [id number] 17:44:00* Test Item Value Reference Range Interpretation Comments GLUBED (test code = GLUBED) 169 mg/dL 70-110 H [id number] 16:56:00* Test Item Value Reference Range Interpretation Comments GLUBED (test code = GLUBED) 177 mg/dL 70-110 H CBC W/AUTO [id number] 11:42:00* Test Item Value Reference Range Interpretation [...] N MACROCYTOSIS (test code = MACR) OCCASIONAL [id number] 11:36:00* Test Item Value Reference Range Interpretation Comments GLUBED (test code = GLUBED) 83 mg/dL 70-110 N BASIC METABOLIC [id number] 07:21:00* Test Item Value Reference Range Interpretation [...] code = CA) 8.3 mg/dl 8.0-10.5 N [id number] 07:11:00* Test Item Value Reference Range Interpretation Comments GLUBED (test code = GLUBED) 132 mg/dL 70-110 H CBC W/AUTO [id number] 06:56:00* Test Item Value Reference Range Interpretation [...] code = BA#) 0.0 K/mm3 0.0-0.2 N [id number] 20:57:00* Test Item Value Reference Range Interpretation Comments GLUBED (test code = GLUBED) 125 mg/dL 70-110 H [id number] 16:18:00* Test Item Value Reference Range Interpretation Comments GLUBED (test code = GLUBED) 126 mg/dL 70-110 H [id number] 12:28:00* Test Item Value Reference Range Interpretation Comments GLUBED (test code = GLUBED) 105 mg/dL 70-110 N BASIC METABOLIC [id number] 06:56:00* Test Item Value Reference Range Interpretation [...] CA) 8.7 mg/dl 8.0-10.5 N CBC W/AUTO [id number] 06:17:00* Test Item Value Reference Range Interpretation [...] BA#) 0.0 K/mm3 0.0-0.2 N ACUTE HEPATITIS [id number] 17:00:00* Test Item Value Reference Range Interpretation Comments AB HEPATITIS A IGM (test code = HAVMAB) NON REACTIVE INDEX NON REAC T. Testing done at [facility] [address] [place] [address] AB HEPATITIS B SURFACE (test code = HBSAB) 12.8 mIU/mL Immunity>9. 9 Status of Immunity Anti-HBs Level Inconsistent with Immunity 0.0 - 9.9Consistent with Immunity >9.9TEST PERFORMED AT [facility] [address] AG HEPATITIS B SURFACE (test code = HBSAG) NON REACTIVE INDEX NonRe active Testing done at [facility] [address] [place] [address] AB HEPATITIS B CORE IGM (test code = HBCMAB) NON REACTIVE INDEX NON REACT. Testing done at [facility] [address] [place] [address] AB HEPATITIS C (test code = HCVAB) NON REACTIVE INDEX NON REACT. Testing done at [facility] [address] [place] [address] Specimen comments: at start of hemodialysisAB HEPATITIS B [id number] 17:00:00* Test Item Value Reference Range Interpretation Comments AB HEPATITIS B CORE (test code = HBCAB) Negative Negative Performed At: [facility] [address] [id number] Kenny Power MD Ph:[phone] Specimen comments: at start of [id number] 16:43:00* Test Item Value Reference Range Interpretation Comments GLUBED (test code = GLUBED) 192 mg/dL 70-110 H [id number] 12:34:00* Test Item Value Reference Range Interpretation Comments GLUBED (test code = GLUBED) 146 mg/dL 70-110 H BASIC METABOLIC [id number] 06:23:00* Test Item Value Reference Range Interpretation [...] CA) 8.5 mg/dl 8.0-10.5 N CBC W/AUTO [id number] 06:03:00* Test Item Value Reference Range Interpretation [...] code = BA#) 0.0 K/mm3 0.0-0.2 N [id number] 16:28:00* Test Item Value Reference Range Interpretation Comments GLUBED (test code = GLUBED) 85 mg/dL 70-110 N [id number] 13:07:00* Test Item Value Reference Range Interpretation Comments GLUBED (test code = GLUBED) 84 mg/dL 70-110 N - CT HEAD/BRAIN W/O [id number] 12:18:00 FAX: Guanakito Jennings [phone] [place]: St: ADM FAX: Bertha Escamilla MD [phone] Name: TAI GRANT [facility] : 1960 Age/S: 58/F [address] [facility] Unit: [id number] Loc: [address] [place] [address] Phys: [place] [address] Acct: [id number] Dis Date: Status: ADM IN PHONE #: [phone] Exam Date: 01/17/2019 1134 FAX #: [phone] Reason: Headcahe EXAMS: CPT CODE: [id number] CT HEAD/BRAIN W/O CONT 15968 CT HEAD WITHOUT CONTRAST. HISTORY: Headache COMPARISON: [...] 1 Signed Report (CONTINUED) FAX: Guanakito Jennings [phone] [place]: St: [facility] FAX: Bertha Escamilla MD [phone] Name: TAI GRANT gisela : 1960 Age/S: 58/F [address] [facility] Unit: [id number] Loc: [address] Phys: [place] [address] Acct: [id number] Dis Date: Status: ADM IN PHONE #: [phone] Exam Date: 01/17/2019 1134 FAX #: [phone] Reason: Headcahe EXAMS: CPT CODE: [id number] CT HEAD/BRAIN W/O CONT 25426 < Continued> CC: Guanakito Ortez MD; Bertha Martin MD Technologist: LYDIA HARDY; KASEY RODRIGUEZ Trnscrd Dt/Tm: 01/17/2019 (1218) t.SDR.SP17 Orig Print D/T: S: 01/17/2019 (1221 PAGE 2 Signed Report THYROID STIMULATING [id number] 11:15:00* Test Item Value Reference Range Interpretation Comments THYROID STIMULATING HORMONE (test code = TSH) 3.16 IU/ML 0.47-5.0 1 N Result is in International Units/milliliter [id number] 11:12:00* Test Item Value Reference Range Interpretation Comments HGBA1C% (test code = HGBA1C%) 5.2 %A1C 4.8-6.0 N ESTIMATED AVERAGE GLUCOSE (test code = EAG) 103 MG/DL [id number] 08:47:00* Test Item Value Reference Range Interpretation Comments GLUBED (test code = GLUBED) 111 mg/dL 70-110 H COMPREHENSIVE METABOLIC [id number] 07:31:00* Test Item Value Reference Range Interpretation [...] 135 Units/L 50.0-136 .0 N Comments to Advertising Sales Associate: Patient is currently in the ED waiting [...] LDL) 59 mg/dl 70-130 L Comments to Advertising Sales Associate: Patient is currently in the ED waiting on a [id number] 07:31:00* Test Item Value Reference Range Interpretation Comments MAGNESIUM (test code = MAG) 1.8 mg/dl 1.8-2.4 N Comments to Advertising Sales Associate: Patient is currently in the ED waiting on a bedCBC W/AUTO [id number] 07:03:00* Test Item Value Reference Range Interpretation [...] BA#) 0.1 K/mm3 0.0-0.2 N Comments to Advertising Sales Associate: Patient is currently in the ED waiting on a bedACUTE HEPATITIS [id number] 04:22:00* Test Item Value Reference Range Interpretation Comments AB HEPATITIS A IGM (test code = HAVMAB) NON REACTIVE INDEX NON REAC T. Testing done at [facility] [address] [place] [address] AB HEPATITIS B SURFACE (test code = HBSAB) mIU/mL Immune >9.9 AG HEPATITIS B SURFACE (test code = HBSAG) NON REACTIVE INDEX NonRe active Testing done at [facility] [address] [place] [address]. [place] [address] AB HEPATITIS B CORE IGM (test code = HBCMAB) NON REACTIVE INDEX NON REACT. Testing done at [facility] [address] [place] [address]. [place] [address] AB HEPATITIS C (test code = HCVAB) NON REACTIVE INDEX NON REACT. Testing done at [facility] [address] [place] [address]. [place] [address] Specimen comments: at start of hemodialysisAB HEPATITIS B [id number] 04:22:00* Test Item Value Reference Range Interpretation Comments AB HEPATITIS B CORE (test code = HBCAB) NON REACT. Specimen comments: at start of hemodialysisAB HEPATITIS A [id number] 04:10:00 * Test Item Value Reference Range Interpretation Comments AB HEPATITIS A IGM (test code = HAVMAB) NON REACTIVE INDEX NON REAC T. Specimen comments: at start of hemodialysisAG HEPATITIS B [id number] 04:10:00* Test Item Value Reference Range Interpretation Comments AG HEPATITIS B SURFACE (test code = HBSAG) NON REACTIVE INDEX NonRe active Specimen comments: at start of hemodialysisAB HEPATITIS B CORE [id number] 04:10:00* Test Item Value Reference Range Interpretation Comments AB HEPATITIS B CORE IGM (test code = HBCMAB) NON REACTIVE INDEX NON REACT. Specimen comments: at start of hemodialysisAB HEPATITIS [id number] 04:10:00* Test Item Value Reference Range Interpretation Comments AB HEPATITIS C (test code = HCVAB) NON REACTIVE INDEX NON REACT. Specimen comments: at start of hemodialysisACUTE HEPATITIS [id number] 04:00:00* Test Item Value Reference Range Interpretation Comments AB HEPATITIS A IGM (test code = HAVMAB) INDEX NONREACTIVE AB HEPATITIS B SURFACE (test code = HBSAB) mIU/mL Immune >9.9 AG HEPATITIS B SURFACE (test code = HBSAG) NON REACTIVE INDEX NonRe active Testing done at [facility] [address] [place] [address]. [place], [place] [address] AB HEPATITIS B CORE IGM (test code = HBCMAB) INDEX NONREACTI VE AB HEPATITIS C (test code = HCVAB) NON REACTIVE INDEX NON REACT. Testing done at [facility] [address] [place] [address]. [place], [place] [address] Specimen comments: at start of hemodialysisAB HEPATITIS B [id number] 04:00:00* Test Item Value Reference Range Interpretation Comments AB HEPATITIS B CORE (test code = HBCAB) NON REACT. Specimen comments: at start of hemodialysisAB HEPATITIS A [id number] 03:58:00 * Test Item Value Reference Range Interpretation Comments AB HEPATITIS A IGM (test code = HAVMAB) INDEX NON REACT. Specimen comments: at start of hemodialysisAG HEPATITIS B [id number] 03:58:00* Test Item Value Reference Range Interpretation Comments AG HEPATITIS B SURFACE (test code = HBSAG) NON REACTIVE INDEX NonRe active Specimen comments: at start of hemodialysisAB HEPATITIS B CORE [id number] 03:58:00* Test Item Value Reference Range Interpretation Comments AB HEPATITIS B CORE IGM (test code = HBCMAB) INDEX NON REACT . Specimen comments: at start of hemodialysisAB HEPATITIS [id number] 03:58:00* Test Item Value Reference Range Interpretation Comments AB HEPATITIS C (test code = HCVAB) NON REACTIVE INDEX NON REACT. Specimen comments: at start of hemodialysisACUTE HEPATITIS [id number] 03:37:00* Test Item Value Reference Range Interpretation Comments AB HEPATITIS A IGM (test code = HAVMAB) INDEX NONREACTIVE AB HEPATITIS B SURFACE (test code = HBSAB) mIU/mL Immune >9.9 AG HEPATITIS B SURFACE (test code = HBSAG) NON REACTIVE INDEX NonRe active Testing done at [facility] [address] [place] [address]. [place], [place] [address] AB HEPATITIS B CORE IGM (test code = HBCMAB) INDEX NONREACTI VE AB HEPATITIS C (test code = HCVAB) INDEX NONREACTIVE Specimen comments: at start of hemodialysisAB HEPATITIS B [id number] 03:37:00* Test Item Value Reference Range Interpretation Comments AB HEPATITIS B CORE (test code = HBCAB) NON REACT. Specimen comments: at start of hemodialysisAB HEPATITIS A [id number] 03:33:00 * Test Item Value Reference Range Interpretation Comments AB HEPATITIS A IGM (test code = HAVMAB) INDEX NON REACT. Specimen comments: at start of hemodialysisAG HEPATITIS B [id number] 03:33:00* Test Item Value Reference Range Interpretation Comments AG HEPATITIS B SURFACE (test code = HBSAG) NON REACTIVE INDEX NonRe active Specimen comments: at start of hemodialysisAB HEPATITIS B CORE [id number] 03:33:00* Test Item Value Reference Range Interpretation Comments AB HEPATITIS B CORE IGM (test code = HBCMAB) INDEX NON REACT . Specimen comments: at start of hemodialysisAB HEPATITIS [id number] 03:33:00* Test Item Value Reference Range Interpretation Comments AB HEPATITIS C (test code = HCVAB) INDEX NON REACT. Specimen comments: at start of hemodialysisCARDIAC ENZYMES [id number] 21:05:00* Test Item Value Reference Range Interpretation [...] first draw on this series Comments to Advertising Sales Associate: Please draw the 2nd specimen q4hrs after the first and the 3rd 8hrs after the first.Specime n comments: drawn Q4hrs then J4sinXtlqngnh to Advertising Sales Associate: Patient is currently in the ED waiting [...] first draw on this series Comments to Advertising Sales Associate: Please draw the 2nd specimen q4hrs after the first and the 3rd 8hrs after the first.Specime n comments: drawn Q4hrs then M8yfwRabdwkmr to Advertising Sales Associate: Patient is currently in the ED waiting on a [id number] 16:33:00* Test Item Value Reference Range Interpretation Comments GLUBED (test code = GLUBED) 109 mg/dL 70-110 N CBC W/MANUAL [id number] 15:07:00* Test Item Value Reference Range Interpretation [...] (test code = PLTMORPH) NORMAL CBC W/MANUAL [id number] 14:56:00* Test Item Value Reference Range Interpretation [...] code = LYMPH) % 20-40 CBC W/MANUAL [id number] 14:56:00* Test Item Value Reference Range Interpretation [...] code = LYMPH) % 20-40 BASIC METABOLIC [id number] 12:29:00* Test Item Value Reference Range Interpretation [...] CA) 8.9 mg/dl 8.0-10.5 N B-TYPE NATRIURETIC [id number] 12:29:00* Test Item Value Reference Range Interpretation Comments B-TYPE NATRIURETIC PEPTIDE (test code = BNP) 1040 PG/ML 5-100 H CARDIAC ENZYMES [id number] 12:29:00* Test Item Value Reference Range Interpretation Comments CREATINE KINASE (CK) (test code = CK) 27 Units/L 26-192 N TROPONIN-I (test code = TROPI) <0.02 NG/ML 0.00-0.06 N REFERENCE RANGE TROPONIN I HEALTHY INDIVIDUALS: <0.06 ng/mL R/O ISCHEMIA: 0.07 - 0.60 ng/mL CUT-OFF RANGE FOR AMI: 0.60 - 1.5 ng/mL BASIC METABOLIC [id number] 12:19:00* Test Item Value Reference Range Interpretation [...] CA) 8.9 mg/dl 8.0-10.5 N B-TYPE NATRIURETIC JITDKWR3665-62-85 12:19:00* Test Item Value Reference Range Interpretation Comments B-TYPE NATRIURETIC PEPTIDE (test code = BNP) PG/ML 5-100 CARDIAC ENZYMES BJYYWMM7220-81-02 12:19:00* Test Item Value Reference Range Interpretation Comments CREATINE KINASE (CK) (test code = CK) 27 Units/L 26-192 N TROPONIN-I (test code = TROPI) <0.02 NG/ML 0.00-0.06 N REFERENCE RANGE TROPONIN I HEALTHY INDIVIDUALS: <0.06 ng/mL R/O ISCHEMIA: 0.07 - 0.60 ng/mL CUT-OFF RANGE FOR AMI: 0.60 - 1.5 ng/mL CBC W/AUTO [id number] 12:02:00* Test Item Value Reference Range Interpretation [...] K/mm3 0.0-0.2 N - XR CHEST 1 [id number] 11:37:00 [place]: St: PRE Name: TAI MANLEY [facility] : [birth year] Age/S: 58/F [address] [facility]: [id number] Loc: [place], [place]: [place] [address] Acct: [id number] Dis Date: Status: PRE ER PHONE #: [phone] Exam Date: 01/16/2019 1110 FAX #: [phone] Reason: SOB EXAMS: CPT CODE: [id number] XR CHEST 1 V 88789 Examination: Chest 1 view Location code: S17 [...] Jace Rogers M.D. CC: Technologist: ABDULLAHI GARRETT Trnokrd Date/Time/By: 9 (7516) : By: [id number] PAGE 1 Signed Report [place]: St: PRE Name: TAI GRANT [facility] : 1960 Age/S: 58/F [address] [facility] Unit #: [id number] Loc: [place], [place]: [place] [address] A cct: [id number] Dis Date: Status: PRE ER PHONE #: [phone] Exam Date: 01/16/2019 1110 FAX #: [phone] Reason: SOB EXAMS: CPT CODE: [id number] XR CHEST 1 V 88449 < Continued> Orig Print D/T: S: 01/16/2019 (9244) PAGE 2 Signed Report MRI SPINE LUMBAR RZ5819-27-08 10:26:00 [place] [address] Patient Name: TAI GRANT MR #: [id number] : 1960 Age/Sex: 58/F Req #: [id number] Adm Physician: Ordered by: BRITTNEY MARTE MD Report #: [id number] Location: MRI Room/Bed: Procedure: [id number] MRI/MR I SPINE LUMBAR WO Exam Date: [...] Cory DELGADO TO: BRITTNEY MARTE MD SURGICAL ZMONTBQVC3415-97-12 08:41:00 RUN DATE: 10/19/18 [facility] *LIVE* PAGE 1 RUN TIME: 840 Specimen Inqui ry RUN USER: INTERFACE PATIENT: TAI GRANT ACCT #: [id number] LOC: [place] U #: [id number] AGE/SX: 58/F ROOM: RE10/06/18[facility] DR: Saul Bender MD : 64 BED: DIS: STATUS: LINDA SD TLOC: SPEC #: [id number] RECD: 10/06/18 STATUS: NITO REQ #: [id number] JAZMINE: 10/06/18 [facility] DR: Saul Bender MD ENTERED: 10/19/18 SP TYPE: SURG SPEC OTHR DR: Jerez Jaspreet MD, Manish MD Seerangan, Geetha MDORDERED: GM LEVEL 4 CODES: F57356 - STOMACH, NOS Y27554 - SM ALL INTESTINE COPIES TO: Saul Bender MD [address] [place] [address] [address] [place], [place] [address] Jaspreet Jerez MD [address] [facility] [place] [place] [address] Eliel Dong MD [address] [place] [address] [address] [place], [place] [address] Bertha Martin MD [address] [place] [id number] PROCEDURES: GM LEVEL 4 (Incomplete ) TISSUES: 1. SMALL INTESTINE, NOS - Small intestine, distal duodenum, bx. 2. STOMACH, NOS - Stomach, prepyloric, bx. FINAL DIAGNOSIS Small intestine, distal duodenum, bx.: Intact villous architecture, no ev idence of celiac sprue. Stomach, gastric, bx.: Hyperplastic polyp, mild ac tive inflammation, no Helicobacter organisms identified. CONTINUED ON NEXT PAGE RUN DATE: 10/19/18 [facility] *LIVE* PAGE 2 RUN TIME: 08 Specimen Inquiry RUN USER: INTERF EMIL SPEC # : [id number] PATIENT: TAI GRANT #[id number] (Cont inued) GROSS AND MICROSCOPIC GROSS EXAMINATION: [...] REVIEWED BY: WALDEMAR Signed SIGNATURE ON FILE AntonioOrlin DO 10/19/18 0841 END OF REPORT MRI SPINE CERVICAL [id number] 16:03:00 [facility] [address] [place] [address] Patient Name: TAI GRANT MR #: [id number] : 1960 Age/Sex: 58/F Req #: [id number] Adm Physician: Ordered by: BRITTNEY MARTE MD Report #: [id number] Location: MRI Room/Bed: Procedure: [id number] MRI/MRI SPINE CERVICAL WO Exam Date: Exam [...] By: RANDALL HAQUE MD 16 Transcribed By: ROIB on 06/23/181616 COPY TO: BRITTNEY MARTE MD [facility] DIGITAL SCR [id number] 15:51:00 [place] [address] Patient Name: TAI GRANT MR #: [id number] : 1960 Age/Sex: 58/F Req #: [id number] Adm Physician: Ordered by: BRITTNEY MARTE MD Report #: [id number] Location: MRI Room/Bed: Procedure: [id number] MG/MAMMOGRAPHY DIGITAL SCR BILAT Exam Date: 06/23/18 Exam Time: [address] ATUS: Signed #[id number] - MGSCRBIL #BILATERAL DIGITAL SCREENING MAMM OGRAM WITH CAD: 06/23/2018 CLINICAL: Routine screening. Comparison is ma de to exams dated: 04/06/2017 mammogram, 03/04/2016 mammogram and 02/21/2016 mammo gram - [facility]. There are scattered fibrogland ular elements in [...] the results. Remberto Chung M.D. ks/:06/28/2018 10:29:26 [employer] Operator: Corrine DIMAS(R)(M), [facility] letter sent: Norm al Exam Mammogram BI-RADS: 2 Benign Dictated By: ANA MARÍA ONEILL MD Adriana ctronically Signed By: ANA MARÍA ONEILL MD on 06/28/18 1029 Transcribed By: JANIS MOSER on 06/28/18 1029 COPY TO: BRITTNEY MARTE MD Bedside Glucose 2018-03-21 19:26:00* Test Item Value Reference Range Interpretation Comments Bedside Glucose (test code = 79477-1) 108 70-120 Meter ID: [id number] Memorial Medical CenterBacteria identification in wound by hvqavqq1190-78-48 10:52:00* Test Item Value Reference Range Interpretation Comments Wound Culture (test code = 6462-6) Organism: ENTEROCOCCUS FAECALIS [facility] CenterBlood Jdmxryo8929-03-49 06:05:00* Test Item Value Reference Range Interpretation Comments Blood Culture (test code = 34081102) NO GROWTH AFTER 48 HOURS [facility] CenterDifferential Total Cells Counted 2018-03-19 09:23:00* Test Item Value Reference Range Interpretation Comments Differential Total Cells Counted (test code = Differquincy tial Total Cells Counted) 100 [facility] CenterNeutrophils % (Manual)2018-03-19 09:23:00 * Test Item Value Reference Range Interpretation Comments Neutrophils % (Manual) (test code = 55892-1) 87 40-74 H [facility] CenterLymphocytes % (Manual)2018-03-19 09:23:00 * Test Item Value Reference Range Interpretation Comments Lymphocytes % (Manual) (test code = 737-7) 10 19-48 L [facility] CenterMonocytes % (Manual)2018-03-19 09:23:00* Test Item Value Reference Range Interpretation Comments Monocytes % (Manual) (test code = 744-3) 2 3.4-9.0 L [facility] CenterEosinophils % (Manual)2018-03-19 09:23:00 * Test Item Value Reference Range Interpretation Comments Eosinophils % (Manual) (test code = 714-6) 1 0-7 [facility] CenterPlatelet Wxmmjkad5099-52-92 09:23:00* Test Item Value Reference Range Interpretation Comments Platelet Estimate (test code = 63559-2) ADEQUATE [facility] CenterPlatelet Morphology Tevrgvv1446-32-84 09:23:00* Test Item Value Reference Range Interpretation Comments Platelet Morphology Comment (test code = 73984-7) NORMAL [facility] CenterRed Cell Morphology Ncdphjq5298-48-91 09:23:00* Test Item Value Reference Range Interpretation Comments Red Cell Morphology Comment (test code = 6742-1) NORMAL [facility] Ppohp8122-97-38 06:47:00* Test Item Value Reference Range Interpretation Comments Sodium Level (test code = 2951-2) 136 136-145 [facility] CenterPotassium Jctni6098-59-03 06:47:00* Test Item Value Reference Range Interpretation Comments Potassium Level (test code = 2823-3) 3.7 3.5-5.1 [facility] CenterChloride Ffmsj8746-82-41 06:47:00* Test Item Value Reference Range Interpretation Comments Chloride Level (test code = 2075-0) 97 98-107 L [facility] CenterCarbon Dioxide Xpong8634-19-30 06:47:00* Test Item Value Reference Range Interpretation Comments Carbon Dioxide Level (test code = 2028-9) 25 22-29 [facility] CenterAnion Vis2940-36-78 06:47:00* Test Item Value Reference Range Interpretation Comments Anion Gap (test code = 17266-6) 17.7 8-16 H [facility] CenterBlood Urea Gwgdbjzb6986-94-06 06:47:00* Test Item Value Reference Range Interpretation Comments Blood Urea Nitrogen (test code = 3094-0) 27 7-26 H [facility] CenterCreatinine2018-05-26 06:47:00* Test Item Value Reference Range Interpretation Comments Creatinine (test code = 2160-0) 3.54 0.57-1.11 H [facility] CenterBUN/Creatinine Otrdw9131-20-66 06:47:00* Test Item Value Reference Range Interpretation Comments BUN/Creatinine Ratio (test code = 3097-3) 8 6-25 [facility] CenterEstimat Glomerular Filtration Rate 2018-03-19 06:47:00* Test Item Value Reference Range Interpretation Comments Estimat Glomerular Filtration Rate (test code = 68449-1) 13 >60 L Ranges were taken from the National Kidney Disease Education Program and the [facility] Kidney Foundation literature.Reference ranges:60 or greater: Lutfap59-70 ( for 3 consecutive months): Chronic kidney disease 15 or less: Kidney failureConnally Memorial Medical CenterGlucose Warbi5026-27-37 06:47:00* Test Item Value Reference Range Interpretation Comments Glucose Level (test code = MJE3228) 101 74-118 [facility] CenterCalcium Dzprv9345-46-41 06:47:00* Test Item Value Reference Range Interpretation Comments Calcium Level (test code = 75710-0) 9.2 8.4-10.2 [facility] CenterTotal Grdgykjra1427-94-11 06:47:00* Test Item Value Reference Range Interpretation Comments Total Bilirubin (test code = 1975-2) 0.3 0.2-1.2 [facility] CenterAspartate Amino Transf (AST/SGOT) 2018-03-19 06:47:00* Test Item Value Reference Range Interpretation Comments Aspartate Amino Transf (AST/SGOT) (test code = Aspartate Amino Transf (AST/SGOT)) 11 5-34 [facility] CenterAlanine Aminotransferase (ALT/SGPT) 2018-03-19 06:47:00* Test Item Value Reference Range Interpretation Comments Alanine Aminotransferase (ALT/SGPT) (test code = 1742-6) 7 0-55 [facility] CenterTotal Djhcvhu2243-83-19 06:47:00* Test Item Value Reference Range Interpretation Comments Total Protein (test code = 2885-2) 7.2 6.5-8.1 [facility] CenterAlbumin2018-05-26 06:47:00* Test Item Value Reference Range Interpretation Comments Albumin (test code = 1751-7) 2.8 3.5-5.0 L [facility] CenterGlobulin2018-05-26 06:47:00* Test Item Value Reference Range Interpretation Comments Globulin (test code = 56986-9) 4.4 2.3-3.5 H [facility] CenterAlbumin/Globulin Qpnvb5277-03-22 06:47:00 * Test Item Value Reference Range Interpretation Comments Albumin/Globulin Ratio (test code = 1759-0) 0.6 0.8-2.0 L [facility] CenterAlkaline Hpjealcqrti3551-31-04 06:47:00* Test Item Value Reference Range Interpretation Comments Alkaline Phosphatase (test code = 6768-6) 160 40-150 H [facility] CenterWhite Blood Oyskr8666-81-99 06:12:00* Test Item Value Reference Range Interpretation Comments White Blood Count (test code = 6690-2) 10.42 4.8-10.8 [facility] CenterRed Blood Gmovi6358-42-96 06:12:00* Test Item Value Reference Range Interpretation Comments Red Blood Count (test code = 789-8) 2.80 3.6-5.1 L [facility] CenterHemoglobin2018-05-26 06:12:00* Test Item Value Reference Range Interpretation Comments Hemoglobin (test code = 49600-1) 8.9 12.0-16.0 L [facility] CenterHematocrit2018-05-26 06:12:00* Test Item Value Reference Range Interpretation Comments Hematocrit (test code = 4544-3) 28.4 34.2-44.1 L [facility] CenterMean Corpuscular Ddupyg8438-78-63 06:12:00* Test Item Value Reference Range Interpretation Comments Mean Corpuscular Volume (test code = 787-2) 101.4 81-99 H [facility] CenterMean Corpuscular Faxzmbaeuu0074-66-47 06:12:00* Test Item Value Reference Range Interpretation Comments Mean Corpuscular Hemoglobin (test code = 785-6) 31.8 28-32 [facility] CenterMean Corpuscular Hemoglobin Concent 2018-03-19 06:12:00* Test Item Value Reference Range Interpretation Comments Mean Corpuscular Hemoglobin Concent (test code = 786-4) 31.3 31-35 [facility] CenterRed Cell Distribution Tbunu7999-61-52 06:12:00* Test Item Value Reference Range Interpretation Comments Red Cell Distribution Width (test code = 40991-5) 14.3 11.7 -14.4 [facility] CenterPlatelet Vdlrh4033-01-53 06:12:00* Test Item Value Reference Range Interpretation Comments Platelet Count (test code = 777-3) 183 140-360 [facility] CenterNeutrophils (%) (Auto)2018-03-19 06:12:00 * Test Item Value Reference Range Interpretation Comments Neutrophils (%) (Auto) (test code = 55515-4) 78.9 38.7-80.0 [facility] CenterLymphocytes (%) (Auto)2018-03-19 06:12:00 * Test Item Value Reference Range Interpretation Comments Lymphocytes (%) (Auto) (test code = 736-9) 7.7 18.0-39.1 L [facility] CenterMonocytes (%) (Auto)2018-03-19 06:12:00* Test Item Value Reference Range Interpretation Comments Monocytes (%) (Auto) (test code = 5905-5) 9.1 4.4-11.3 [facility] CenterEosinophils (%) (Auto)2018-03-19 06:12:00 * Test Item Value Reference Range Interpretation Comments Eosinophils (%) (Auto) (test code = 713-8) 2.0 0.0-6.0 [facility] CenterBasophils (%) (Auto)2018-03-19 06:12:00* Test Item Value Reference Range Interpretation Comments Basophils (%) (Auto) (test code = 706-2) 0.2 0.0-1.0 [facility] CenterIM GRANULOCYTES %2018-03-19 06:12:00* Test Item Value Reference Range Interpretation Comments IM GRANULOCYTES % (test code = IM GRANULOCYTES %) 2.1 0.0- 1.0 H [facility] CenterNeutrophils # (Auto)2018-03-19 06:12:00* Test Item Value Reference Range Interpretation Comments Neutrophils # (Auto) (test code = 751-8) 8.2 2.1-6.9 H [facility] CenterLymphocytes # (Auto)2018-03-19 06:12:00* Test Item Value Reference Range Interpretation Comments Lymphocytes # (Auto) (test code = 82131-3) 0.8 1.0-3.2 L [facility] CenterMonocytes # (Auto)2018-03-19 06:12:00* Test Item Value Reference Range Interpretation Comments Monocytes # (Auto) (test code = 742-7) 1.0 0.2-0.8 H [facility] CenterEosinophils # (Auto)2018-03-19 06:12:00* Test Item Value Reference Range Interpretation Comments Eosinophils # (Auto) (test code = 711-2) 0.2 0.0-0.4 [facility] CenterBasophils # (Auto)2018-03-19 06:12:00* Test Item Value Reference Range Interpretation Comments Basophils # (Auto) (test code = 704-7) 0.0 0.0-0.1 [facility] CenterAbsolute Immature Granulocyte (auto 2018-03-19 06:12:00* Test Item Value Reference Range Interpretation Comments Absolute Immature Granulocyte (auto (khoi t code = Absolute Immature Granulocyte (auto) 0.22 0-0.1 H [facility] CenterActivated Partial Thromboplast Time 2018-02-17 06:46:00* Test Item Value Reference Range Interpretation Comments Activated Partial Thromboplast Time (test code = 85320-9) 35.4 23.8-35.5 [facility] CenterProthrombin Fsfb9689-86-11 06:45:00* Test Item Value Reference Range Interpretation Comments Prothrombin Time (test code = 5902-2) 13.9 11.9-14.5 [facility] CenterProthromb Time International Ratio 2018-02-17 06:45:00* Test Item Value Reference Range Interpretation Comments Prothromb Time International Ratio (test code = 6301-6) 1.16 Oral Anticoagulant Therapy INR Values:1. Low Intensity Therapy 1.5 - 2.02 . Moderate Intensity Therapy 2.0 - 3.03. High Intensity Therapy(1) 2.5 - 3. 54. High Intensity Therapy(2) 3.0 - 4.05. Panic Value INR > 5.0 [facility] Nvmhpgh6935-42-24 16:40:00* Test Item Value Reference Range Interpretation Comments Bedside Glucose (test code = 13685-6) 148 70-120 H Meter ID: [id number] [facility] Glucose 2017-12-24 16:40:00* Test Item Value Reference Range Interpretation Comments Bedside Glucose (test code = 22566-7) 148 70-120 H Meter ID: [id number] Memorial Medical CenterHekaiser [facility] hospital B Surface Antibody, Vvclg8148-22-10 12:55:00* Test Item Value Reference Range Interpretation Comments Hepatitis B Surface Antibody, Quant (test code = 5194-6) 9.2 Immunity>9.9 L Verified by repeat analysis Status of Immunity Anti-HBs Level Inconsistent with I mmunity 0.0 - 9.9Consistent with Immunity >9.9[facility] Core Total Antibody 2017-12-24 12:55:00* Test Item Value Reference Range Interpretation Comments Hepatitis B Core Total Antibody (test code = 22910-7) Negative Negative Performed at: [facility] Lab[address] [id number] Director: Kenny Garcia MD, Phone: [phone] Surface Fhgfbgh1539-82-61 12:55:00* Test Item Value Reference Range Interpretation Comments Hepatitis B Surface Antigen (test code = 5196-1) Negative Negat sue [facility] B Surface Antibody, Quant 2017-12-24 12:55:00* Test Item Value Reference Range Interpretation Comments Hepatitis B Surface Antibody, Quant (test code = 5194-6) 9.2 Immunity>9.9 L Verified by repeat analysis Status of Immunity Anti-HBs Level Inconsistent with I mmunity 0.0 - 9.9Consistent with Immunity >9.9[facility] B Core Total Antibody 2017-12-24 12:55:00* Test Item Value Reference Range Interpretation Comments Hepatitis B Core Total Antibody (test code = 13878-0) Negative Negative Performed at: [address] [id number] Director: Kenny Garcia MD, Phone: [phone] Memorial Medical CenterHekaiser foundation hospital B Surface Htebgwt2487-99-51 12:55:00* Test Item Value Reference Range Interpretation Comments Hepatitis B Surface Antigen (test code = 5196-1) Negative Negat sue [facility] B Surface Antibody, Quant 2017-12-24 12:55:00* Test Item Value Reference Range Interpretation Comments Hepatitis B Surface Antibody, Quant (test code = 5194-6) 9.2 Immunity>9.9 L Verified by repeat analysis Status of Immunity Anti-HBs Level Inconsistent with I mmunity 0.0 - 9.9Consistent with Immunity >9.9[facility] B Core Total Antibody 2017-12-24 12:55:00* Test Item Value Reference Range Interpretation Comments Hepatitis B Core Total Antibody (test code = 89162-8) Negative Negative Performed at: [address] [id number] Director: Kenny Garcia MD, Phone: [phone] St[facility] B Surface Ftlbpta2070-49-57 12:55:00* Test Item Value Reference Range Interpretation Comments Hepatitis B Surface Antigen (test code = 5196-1) Negative Negat sue [facility] CenterParathyroid Uwocuxg5290-56-50 07:39:00* Test Item Value Reference Range Interpretation Comments Parathyroid Hormone (test code = 2731-8) 144 15-65 H [facility] CenterCalcium (Send out)2017-12-24 07:39:00* Test Item Value Reference Range Interpretation Comments Calcium (Send out) (test code = 22287-1) 8.7 8.7-10.2 [facility] CenterParathyroid Hormone Interpretation 2017-12-24 07:39:00* Test Item Value Reference Range Interpretation Comments Parathyroid Hormone Interpretation (test code = Parathyroid Hormone Interpretation) Comment . Interpretation Intact PTH Calcium (pg/mL) (mg/dL)Normal 15 - 65 8.6 - 10.2Pr imary Hyperparathyroidism >65 >10.2Secondary Hyperparathyroidism >65 <10.2Non-Parathyroid Hypercalcemia <65 >10.2Hypoparathyroidism <15 < 8.6Non- Parathyroid Hypocalcemia 15 - 65 < 8.6Performed at: [employer] [id number] Director: Kenny Garcia MD, Phone: [phone] at: [employer] [id number] Director: Cem Nathan MD, Phone: [phone] [facility] CenterParathyroid Acdmtou9377-98-26 07:39:00* Test Item Value Reference Range Interpretation Comments Parathyroid Hormone (test code = 2731-8) 144 15-65 H [facility] CenterCalcium (Send out)2017-12-24 07:39:00* Test Item Value Reference Range Interpretation Comments Calcium (Send out) (test code = 83502-0) 8.7 8.7-10.2 [facility] CenterParathyroid Hormone Interpretation 2017-12-24 07:39:00* Test Item Value Reference Range Interpretation Comments Parathyroid Hormone Interpretation (test code = Parathyroid Hormone Interpretation) Comment . Interpretation Intact PTH Calcium (pg/mL) (mg/dL)Normal 15 - 65 8.6 - 10.2Pr imary Hyperparathyroidism >65 >10.2Secondary Hyperparathyroidism >65 <10.2Non-Parathyroid Hypercalcemia <65 >10.2Hypoparathyroidism <15 < 8.6Non- Parathyroid Hypocalcemia 15 - 65 < 8.6Performed at: [employer] [id number] Director: Kenny Garcia MD, Phone: [phone] at: [employer] [id number] Director: Cem Nathan MD, Phone: [phone] [facility] CenterParathyroid Qzyktmc6303-64-16 07:39:00* Test Item Value Reference Range Interpretation Comments Parathyroid Hormone (test code = 2731-8) 144 15-65 H [facility] CenterCalcium (Send out)2017-12-24 07:39:00* Test Item Value Reference Range Interpretation Comments Calcium (Send out) (test code = 07695-9) 8.7 8.7-10.2 [facility] CenterParathyroid Hormone Interpretation 2017-12-24 07:39:00* Test Item Value Reference Range Interpretation Comments Parathyroid Hormone Interpretation (test code = Parathyroid Hormone Interpretation) Comment . Interpretation Intact PTH Calcium (pg/mL) (mg/dL)Normal 15 - 65 8.6 - 10.2Pr imary Hyperparathyroidism >65 >10.2Secondary Hyperparathyroidism >65 <10.2Non-Parathyroid Hypercalcemia <65 >10.2Hypoparathyroidism <15 < 8.6Non- Parathyroid Hypocalcemia 15 - 65 < 8.6Performed at: [employer] [id number] Director: Kenny Garcia MD, Phone: [phone] at: [employer] [id number] Director: Cem Nathan MD, Phone: [phone] [facility] Centerodium Rfjqn6784-19-26 06:48:00* Test Item Value Reference Range Interpretation Comments Sodium Level (test code = 2951-2) 141 136-145 [facility] CenterPotassium Bxfdg4143-45-57 06:48:00* Test Item Value Reference Range Interpretation Comments Potassium Level (test code = 2823-3) 4.4 3.5-5.1 [facility] CenterChloride Brmle3864-44-70 06:48:00* Test Item Value Reference Range Interpretation Comments Chloride Level (test code = 2075-0) 97 98-107 L [facility] CenterCarbon Dioxide Iujjd3765-23-39 06:48:00* Test Item Value Reference Range Interpretation Comments Carbon Dioxide Level (test code = 2028-9) 32 22-29 H [facility] CenterAnion Tqn9942-37-69 06:48:00* Test Item Value Reference Range Interpretation Comments Anion Gap (test code = 13645-1) 16.4 8-16 H [facility] CenterBlood Urea Sxilsrzv9342-55-28 06:48:00* Test Item Value Reference Range Interpretation Comments Blood Urea Nitrogen (test code = 3094-0) 19 7-26 [facility] CenterCreatinine2018-03-02 06:48:00* Test Item Value Reference Range Interpretation Comments Creatinine (test code = 2160-0) 3.04 0.57-1.11 H [facility] CenterBUN/Creatinine Rifaw7026-32-53 06:48:00* Test Item Value Reference Range Interpretation Comments BUN/Creatinine Ratio (test code = 3097-3) 6 6-25 [facility] CenterEstimat Glomerular Filtration Rate 2017-12-24 06:48:00* Test Item Value Reference Range Interpretation Comments Estimat Glomerular Filtration Rate (test code = 72236-5) 16 >60 L Ranges were taken from the National Kidney Disease Education Program and the [facility] Kid[facility] Foundation literature.Reference ranges:60 or greater: Jvevfw96-05 ( for 3 consecutive months): Chronic kidney disease 15 or less: Kidney failureConnally Memorial Medical CenterGlucose Ngvfr8950-93-98 06:48:00* Test Item Value Reference Range Interpretation Comments Glucose Level (test code = YOO9503) 83 74-118 [facility] CenterCalcium Grzpl7277-03-75 06:48:00* Test Item Value Reference Range Interpretation Comments Calcium Level (test code = 27302-2) 8.4 8.4-10.2 [facility] CenterTotal Osaavjpro0283-82-61 06:48:00* Test Item Value Reference Range Interpretation Comments Total Bilirubin (test code = 1975-2) 0.5 0.2-1.2 [facility] CenterAspartate Amino Transf (AST/SGOT) 2017-12-24 06:48:00* Test Item Value Reference Range Interpretation Comments Aspartate Amino Transf (AST/SGOT) (test code = Aspartate Amino Transf (AST/SGOT)) 31 5-34 [facility] CenterAlanine Aminotransferase (ALT/SGPT) 2017-12-24 06:48:00* Test Item Value Reference Range Interpretation Comments Alanine Aminotransferase (ALT/SGPT) (test code = 1742-6) 13 0-55 [facility] CenterTotal Ayblqnm1101-51-97 06:48:00* Test Item Value Reference Range Interpretation Comments Total Protein (test code = 2885-2) 7.3 6.5-8.1 [facility] CenterAlbumin2018-03-02 06:48:00* Test Item Value Reference Range Interpretation Comments Albumin (test code = 1751-7) 3.1 3.5-5.0 L [facility] CenterGlobulin2018-03-02 06:48:00* Test Item Value Reference Range Interpretation Comments Globulin (test code = 18008-5) 4.2 2.3-3.5 H [facility] CenterAlbumin/Globulin Jhumq6420-21-28 06:48:00 * Test Item Value Reference Range Interpretation Comments Albumin/Globulin Ratio (test code = 1759-0) 0.7 0.8-2.0 L [facility] CenterAlkaline Hwsqnjeftwf5416-23-71 06:48:00* Test Item Value Reference Range Interpretation Comments Alkaline Phosphatase (test code = 6768-6) 147 40-150 [facility] Xgsuh2140-24-58 06:48:00* Test Item Value Reference Range Interpretation Comments Sodium Level (test code = 2951-2) 141 136-145 [facility] CenterPotassium Omvld1741-99-59 06:48:00* Test Item Value Reference Range Interpretation Comments Potassium Level (test code = 2823-3) 4.4 3.5-5.1 [facility] CenterChloride Ovnnu2747-58-60 06:48:00* Test Item Value Reference Range Interpretation Comments Chloride Level (test code = 2075-0) 97 98-107 L [facility] CenterCarbon Dioxide Ujzki2090-83-89 06:48:00* Test Item Value Reference Range Interpretation Comments Carbon Dioxide Level (test code = 2028-9) 32 22-29 H [facility] CenterAnion Vkd8091-55-63 06:48:00* Test Item Value Reference Range Interpretation Comments Anion Gap (test code = 38361-8) 16.4 8-16 H [facility] CenterBlood Urea Kpwuyiqh8250-45-75 06:48:00* Test Item Value Reference Range Interpretation Comments Blood Urea Nitrogen (test code = 3094-0) 19 7-26 [facility] CenterCreatinine2018-03-02 06:48:00* Test Item Value Reference Range Interpretation Comments Creatinine (test code = 2160-0) 3.04 0.57-1.11 H [facility] CenterBUN/Creatinine Zwrdv0137-06-74 06:48:00* Test Item Value Reference Range Interpretation Comments BUN/Creatinine Ratio (test code = 3097-3) 6 6-25 [facility] CenterEstimat Glomerular Filtration Rate 2017-12-24 06:48:00* Test Item Value Reference Range Interpretation Comments Estimat Glomerular Filtration Rate (test code = 16823-7) 16 >60 L Ranges were taken from the National Kidney Disease Education Program and the [facility] [employer] literature.Reference ranges:60 or greater: Aexlsz98-36 ( for 3 consecutive months): Chronic kidney disease 15 or less: Kidney failureConnally Memorial Medical CenterGlucose Nsmvq7954-13-22 06:48:00* Test Item Value Reference Range Interpretation Comments Glucose Level (test code = JHP3228) 83 74-118 [facility] CenterCalcium Ounso2617-39-75 06:48:00* Test Item Value Reference Range Interpretation Comments Calcium Level (test code = 92243-1) 8.4 8.4-10.2 [facility] CenterTotal Bzmentlmg8351-32-58 06:48:00* Test Item Value Reference Range Interpretation Comments Total Bilirubin (test code = 1975-2) 0.5 0.2-1.2 [facility] CenterAspartate Amino Transf (AST/SGOT) 2017-12-24 06:48:00* Test Item Value Reference Range Interpretation Comments Aspartate Amino Transf (AST/SGOT) (test code = Aspartate Amino Transf (AST/SGOT)) 31 5-34 [facility] CenterAlanine Aminotransferase (ALT/SGPT) 2017-12-24 06:48:00* Test Item Value Reference Range Interpretation Comments Alanine Aminotransferase (ALT/SGPT) (test code = 1742-6) 13 0-55 [facility] CenterTotal Wyrvmmb2128-40-62 06:48:00* Test Item Value Reference Range Interpretation Comments Total Protein (test code = 2885-2) 7.3 6.5-8.1 [facility] CenterAlbumin2018-03-02 06:48:00* Test Item Value Reference Range Interpretation Comments Albumin (test code = 1751-7) 3.1 3.5-5.0 L [facility] CenterGlobulin2018-03-02 06:48:00* Test Item Value Reference Range Interpretation Comments Globulin (test code = 71309-9) 4.2 2.3-3.5 H [facility] CenterAlbumin/Globulin Uetwc9572-61-24 06:48:00 * Test Item Value Reference Range Interpretation Comments Albumin/Globulin Ratio (test code = 1759-0) 0.7 0.8-2.0 L [facility] CenterAlkaline Wnoyvbutffy2679-17-92 06:48:00* Test Item Value Reference Range Interpretation Comments Alkaline Phosphatase (test code = 6768-6) 147 40-150 [facility] CenterPhosphorus Hijta3191-04-52 05:25:00* Test Item Value Reference Range Interpretation Comments Phosphorus Level (test code = EVT5342) 3.3 2.3-4.7 [facility] CenterPhosphorus Cvdvh8151-90-69 05:25:00* Test Item Value Reference Range Interpretation Comments Phosphorus Level (test code = NKN1320) 3.3 2.3-4.7 [facility] CenterPhosphorus Miwkv5559-96-08 05:25:00* Test Item Value Reference Range Interpretation Comments Phosphorus Level (test code = VVX4475) 3.3 2.3-4.7 [facility] CenterDifferential Total Cells Counted 2017-12-23 04:57:00* Test Item Value Reference Range Interpretation Comments Differential Total Cells Counted (test code = Differquincy tial Total Cells Counted) 100 [facility] CenterNeutrophils % (Manual)2017-12-23 04:57:00 * Test Item Value Reference Range Interpretation Comments Neutrophils % (Manual) (test code = 45749-7) 78 40-74 H [facility] CenterLymphocytes % (Manual)2017-12-23 04:57:00 * Test Item Value Reference Range Interpretation Comments Lymphocytes % (Manual) (test code = 737-7) 11 19-48 L [facility] CenterMonocytes % (Manual)2017-12-23 04:57:00* Test Item Value Reference Range Interpretation Comments Monocytes % (Manual) (test code = 744-3) 7 3.4-9.0 [facility] CenterEosinophils % (Manual)2017-12-23 04:57:00 * Test Item Value Reference Range Interpretation Comments Eosinophils % (Manual) (test code = 714-6) 4 0-7 [facility] CenterPlatelet Wzojpyew0764-07-54 04:57:00* Test Item Value Reference Range Interpretation Comments Platelet Estimate (test code = 03217-9) ADEQUATE [facility] CenterPlatelet Morphology Ryeiddr9617-99-10 04:57:00* Test Item Value Reference Range Interpretation Comments Platelet Morphology Comment (test code = 26038-1) NORMAL [facility] CenterAnisocytosis2018-03-01 04:57:00* Test Item Value Reference Range Interpretation Comments Anisocytosis (test code = 702-1) SLIGHT [facility] CenterRed Cell Morphology Fpeivvx0195-46-02 04:57:00* Test Item Value Reference Range Interpretation Comments Red Cell Morphology Comment (test code = 6742-1) NORMAL [facility] CenterDifferential Total Cells Counted 2017-12-23 04:57:00* Test Item Value Reference Range Interpretation Comments Differential Total Cells Counted (test code = Erica kaplan Total Cells Counted) 100 [facility] CenterNeutrophils % (Manual)2017-12-23 04:57:00 * Test Item Value Reference Range Interpretation Comments Neutrophils % (Manual) (test code = 65909-9) 78 40-74 H [facility] CenterLymphocytes % (Manual)2017-12-23 04:57:00 * Test Item Value Reference Range Interpretation Comments Lymphocytes % (Manual) (test code = 737-7) 11 19-48 L [facility] CenterMonocytes % (Manual)2017-12-23 04:57:00* Test Item Value Reference Range Interpretation Comments Monocytes % (Manual) (test code = 744-3) 7 3.4-9.0 [facility] CenterEosinophils % (Manual)2017-12-23 04:57:00 * Test Item Value Reference Range Interpretation Comments Eosinophils % (Manual) (test code = 714-6) 4 0-7 [facility] CenterPlatelet Bothezhh5371-61-61 04:57:00* Test Item Value Reference Range Interpretation Comments Platelet Estimate (test code = 78735-9) ADEQUATE [facility] CenterPlatelet Morphology Zphmpcn8715-56-80 04:57:00* Test Item Value Reference Range Interpretation Comments Platelet Morphology Comment (test code = 11647-4) NORMAL [facility] CenterAnisocytosis2018-03-01 04:57:00* Test Item Value Reference Range Interpretation Comments Anisocytosis (test code = 702-1) SLIGHT [facility] CenterRed Cell Morphology Qhqiczf1536-04-79 04:57:00* Test Item Value Reference Range Interpretation Comments Red Cell Morphology Comment (test code = 6742-1) NORMAL [facility] CenterAnisocytosis2018-03-01 04:57:00* Test Item Value Reference Range Interpretation Comments Anisocytosis (test code = 702-1) SLIGHT [facility] CenterWhite Blood Ganux9684-18-79 04:41:00* Test Item Value Reference Range Interpretation Comments White Blood Count (test code = 6690-2) 6.06 4.8-10.8 [facility] CenterRed Blood Rrbgx7824-22-03 04:41:00* Test Item Value Reference Range Interpretation Comments Red Blood Count (test code = 789-8) 2.82 3.6-5.1 L [facility] CenterHemoglobin2018-03-01 04:41:00* Test Item Value Reference Range Interpretation Comments Hemoglobin (test code = 04675-2) 9.1 12.0-16.0 L [facility] CenterHematocrit2018-03-01 04:41:00* Test Item Value Reference Range Interpretation Comments Hematocrit (test code = 4544-3) 26.8 34.2-44.1 L [facility] CenterMean Corpuscular Omenol2186-37-07 04:41:00* Test Item Value Reference Range Interpretation Comments Mean Corpuscular Volume (test code = 787-2) 95.0 81-99 [facility] CenterMean Corpuscular Hrplgioqqm2659-93-35 04:41:00* Test Item Value Reference Range Interpretation Comments Mean Corpuscular Hemoglobin (test code = 785-6) 32.3 28-32 H [facility] CenterMean Corpuscular Hemoglobin Concent 2017-12-23 04:41:00* Test Item Value Reference Range Interpretation Comments Mean Corpuscular Hemoglobin Concent (test code = 786-4) 34.0 31-35 [facility] CenterRed Cell Distribution Dedly7010-84-81 04:41:00* Test Item Value Reference Range Interpretation Comments Red Cell Distribution Width (test code = 22007-8) 22.2 11.7 -14.4 H [facility] CenterPlatelet Hcmsi8459-55-78 04:41:00* Test Item Value Reference Range Interpretation Comments Platelet Count (test code = 777-3) 140 140-360 [facility] CenterNeutrophils (%) (Auto)2017-12-23 04:41:00 * Test Item Value Reference Range Interpretation Comments Neutrophils (%) (Auto) (test code = 85320-3) 79.0 38.7-80.0 [facility] CenterLymphocytes (%) (Auto)2017-12-23 04:41:00 * Test Item Value Reference Range Interpretation Comments Lymphocytes (%) (Auto) (test code = 736-9) 7.1 18.0-39.1 L [facility] CenterMonocytes (%) (Auto)2017-12-23 04:41:00* Test Item Value Reference Range Interpretation Comments Monocytes (%) (Auto) (test code = 5905-5) 10.4 4.4-11.3 [facility] CenterEosinophils (%) (Auto)2017-12-23 04:41:00 * Test Item Value Reference Range Interpretation Comments Eosinophils (%) (Auto) (test code = 713-8) 2.0 0.0-6.0 [facility] CenterBasophils (%) (Auto)2017-12-23 04:41:00* Test Item Value Reference Range Interpretation Comments Basophils (%) (Auto) (test code = 706-2) 0.2 0.0-1.0 [facility] CenterIM GRANULOCYTES %2017-12-23 04:41:00* Test Item Value Reference Range Interpretation Comments IM GRANULOCYTES % (test code = IM GRANULOCYTES %) 1.3 0.0- 1.0 H [facility] CenterNeutrophils # (Auto)2017-12-23 04:41:00* Test Item Value Reference Range Interpretation Comments Neutrophils # (Auto) (test code = 751-8) 4.8 2.1-6.9 [facility] CenterLymphocytes # (Auto)2017-12-23 04:41:00* Test Item Value Reference Range Interpretation Comments Lymphocytes # (Auto) (test code = 14529-4) 0.4 1.0-3.2 L [facility] CenterMonocytes # (Auto)2017-12-23 04:41:00* Test Item Value Reference Range Interpretation Comments Monocytes # (Auto) (test code = 742-7) 0.6 0.2-0.8 [facility] CenterEosinophils # (Auto)2017-12-23 04:41:00* Test Item Value Reference Range Interpretation Comments Eosinophils # (Auto) (test code = 711-2) 0.1 0.0-0.4 [facility] CenterBasophils # (Auto)2017-12-23 04:41:00* Test Item Value Reference Range Interpretation Comments Basophils # (Auto) (test code = 704-7) 0.0 0.0-0.1 [facility] CenterAbsolute Immature Granulocyte (auto 2017-12-23 04:41:00* Test Item Value Reference Range Interpretation Comments Absolute Immature Granulocyte (auto (khoi t code = Absolute Immature Granulocyte (auto) 0.08 0-0.1 [facility] CenterWhite Blood Ktuct3022-82-76 04:41:00* Test Item Value Reference Range Interpretation Comments White Blood Count (test code = 6690-2) 6.06 4.8-10.8 [facility] CenterRed Blood Qzknt4816-29-61 04:41:00* Test Item Value Reference Range Interpretation Comments Red Blood Count (test code = 789-8) 2.82 3.6-5.1 L [facility] CenterHemoglobin2018-03-01 04:41:00* Test Item Value Reference Range Interpretation Comments Hemoglobin (test code = 14651-5) 9.1 12.0-16.0 L [facility] CenterHematocrit2018-03-01 04:41:00* Test Item Value Reference Range Interpretation Comments Hematocrit (test code = 4544-3) 26.8 34.2-44.1 L [facility] CenterMean Corpuscular Tcjzoo6943-50-11 04:41:00* Test Item Value Reference Range Interpretation Comments Mean Corpuscular Volume (test code = 787-2) 95.0 81-99 [facility] CenterMean Corpuscular Flkjggtogh1490-92-49 04:41:00* Test Item Value Reference Range Interpretation Comments Mean Corpuscular Hemoglobin (test code = 785-6) 32.3 28-32 H [facility] CenterMean Corpuscular Hemoglobin Concent 2017-12-23 04:41:00* Test Item Value Reference Range Interpretation Comments Mean Corpuscular Hemoglobin Concent (test code = 786-4) 34.0 31-35 [facility] CenterRed Cell Distribution Dierj1277-96-79 04:41:00* Test Item Value Reference Range Interpretation Comments Red Cell Distribution Width (test code = 44030-4) 22.2 11.7 -14.4 H [facility] CenterPlatelet Upmmw9396-97-56 04:41:00* Test Item Value Reference Range Interpretation Comments Platelet Count (test code = 777-3) 140 140-360 [facility] CenterNeutrophils (%) (Auto)2017-12-23 04:41:00 * Test Item Value Reference Range Interpretation Comments Neutrophils (%) (Auto) (test code = 21854-5) 79.0 38.7-80.0 [facility] CenterLymphocytes (%) (Auto)2017-12-23 04:41:00 * Test Item Value Reference Range Interpretation Comments Lymphocytes (%) (Auto) (test code = 736-9) 7.1 18.0-39.1 L [facility] CenterMonocytes (%) (Auto)2017-12-23 04:41:00* Test Item Value Reference Range Interpretation Comments Monocytes (%) (Auto) (test code = 5905-5) 10.4 4.4-11.3 [facility] CenterEosinophils (%) (Auto)2017-12-23 04:41:00 * Test Item Value Reference Range Interpretation Comments Eosinophils (%) (Auto) (test code = 713-8) 2.0 0.0-6.0 [facility] CenterBasophils (%) (Auto)2017-12-23 04:41:00* Test Item Value Reference Range Interpretation Comments Basophils (%) (Auto) (test code = 706-2) 0.2 0.0-1.0 [facility] CenterIM GRANULOCYTES %2017-12-23 04:41:00* Test Item Value Reference Range Interpretation Comments IM GRANULOCYTES % (test code = IM GRANULOCYTES %) 1.3 0.0- 1.0 H [facility] CenterNeutrophils # (Auto)2017-12-23 04:41:00* Test Item Value Reference Range Interpretation Comments Neutrophils # (Auto) (test code = 751-8) 4.8 2.1-6.9 [facility] CenterLymphocytes # (Auto)2017-12-23 04:41:00* Test Item Value Reference Range Interpretation Comments Lymphocytes # (Auto) (test code = 57851-0) 0.4 1.0-3.2 L [facility] CenterMonocytes # (Auto)2017-12-23 04:41:00* Test Item Value Reference Range Interpretation Comments Monocytes # (Auto) (test code = 742-7) 0.6 0.2-0.8 [facility] CenterEosinophils # (Auto)2017-12-23 04:41:00* Test Item Value Reference Range Interpretation Comments Eosinophils # (Auto) (test code = 711-2) 0.1 0.0-0.4 [facility] CenterBasophils # (Auto)2017-12-23 04:41:00* Test Item Value Reference Range Interpretation Comments Basophils # (Auto) (test code = 704-7) 0.0 0.0-0.1 [facility] CenterAbsolute Immature Granulocyte (auto 2017-12-23 04:41:00* Test Item Value Reference Range Interpretation Comments Absolute Immature Granulocyte (auto (khoi t code = Absolute Immature Granulocyte (auto) 0.08 0-0.1 [facility] CenterCreatine Kinase IO8009-73-44 13:03:00* Test Item Value Reference Range Interpretation Comments Creatine Kinase MB (test code = 79126-4) 1.20 0-5.0 [facility] CenterTroponin Y7752-16-06 13:03:00* Test Item Value Reference Range Interpretation Comments Troponin I (test code = FDT0843) -0.001 0-0.300 [facility] CenterCreatine Kinase UY3791-02-36 13:03:00* Test Item Value Reference Range Interpretation Comments Creatine Kinase MB (test code = 97621-6) 1.20 0-5.0 [facility] CenterTropon W9311-90-18 13:03:00* Test Item Value Reference Range Interpretation Comments Troponin I (test code = XIK6244) -0.001 0-0.300 [facility] CenterCreatine Kinase YE7209-42-16 13:03:00* Test Item Value Reference Range Interpretation Comments Creatine Kinase MB (test code = 85492-9) 1.20 0-5.0 [facility] CenterTranmed health medical centern W5250-69-11 13:03:00* Test Item Value Reference Range Interpretation Comments Troponin I (test code = PKJ9441) -0.001 0-0.300 [facility] CenterCreatine Jnfdnw9938-36-40 12:54:00* Test Item Value Reference Range Interpretation Comments Creatine Kinase (test code = 2157-6) 46 29-168 [facility] CenterCreatine Ihqfnm8209-20-69 12:54:00* Test Item Value Reference Range Interpretation Comments Creatine Kinase (test code = 2157-6) 46 29-168 [facility] CenterCreatine Xbgusc2074-65-52 12:54:00* Test Item Value Reference Range Interpretation Comments Creatine Kinase (test code = 2157-6) 46 29-168 [facility] CenterCHEM AWTCC2201-33-93 09:48:007.7[facility]annCHEM ZMKEV4805-37-52 09:48:74875Etwpayqd HermannCHEM IOXXN8673-09-42 09:48:0027[facility]annCHEM OSVUW4904-19-36 09:48:004.1[facility]annCHEM JGCAS4054-01-62 09:48:67281Gkfrrzhw HermannCHEM HPTNQ2581-45-23 09:48:0023 [facility]annCHEM NIFOE4798-83-60 09:48:006.24[facility]annCHEM PANEL 2016-06-10 09:48:94689Jnmhqyus HermannCHEM PCIVK6454-30-81 09:48:007[facility] HermannCHEM WWICX8520-80-29 09:48:0012.1[facility]annCHEM BJZLG3032-29-12 17:15:007.6[facility]annCHEM EJRVQ6192-14-72 17:15:81020[place] HermannCHEM GWDMR2428-05-98 17:15:53121Yzirvvhq HermannCHEM GGTAT2139-48-99 17:15:0025 [facility]annCHEM TGMFE7083-39-21 17:15:004.3[facility]annCHEM PANEL 2016-06-09 17:15:004.99[facility]annCHEM TKDJL1430-91-96 17:15:0015[facility]annCHEM HIAQV9352-45-01 17:15:57882Rvxycsnz HermannCHEM XSFXB4979-20-02 17:15:0015.3[facility] HermannCHEM ECQLO8060-51-94 17:15:009[facility] [place] KAMEROBAXH8353-29-61 17:15:0027.4[facility] RvwwfdaKXERHGZAVN3256-97-58 17:15:00 17.6[facility] IdzmsrhSTUDQJHRJY6173-03-01 17:15:0032.5[facility] HermannHEMATOLOGY 2016-06-09 17:15:00* Test Item Value Reference Range Interpretation Comments MCH (test code = MCH) 31.3 pg 27.0-31.0 [facility] HuufdjkCILXCPEQBL3801-26-57 17:15:0096.2[facility] HermannHEMATOLOGY 2016-06-09 17:15:007.4[facility] BbcnyynQRPGRDMQYL2555-86-44 17:15:33276Fjxolzph HzbklhhIQXVVDXXBO4652-61-10 17:15:007.2[facility] TqiqrmcREBIXHUPZJ8572-00-18 17:15:008.9[facility] JkrvveyJBDPOSARSN5943-74-25 17:15:002.85[facility] [place] HDMMRTVUBS1539-75-89 17:15:000.6[facility] AynpehtZIVVOEBRPD0230-43-46 17:15:003.7 [facility] NgtsvwjPJYQZLZRNB2850-33-40 17:15:006.4[facility]annHEMATOLOGY 2016-06-09 17:15:000.7[facility] OrgocrdTTWBPXOIFV5753-04-39 17:15:005.7[facility] PjvpulpFBDMZVVJJU5978-94-15 17:15:000.3[facility] CeqdhlxGLFQYCJQKF2783-85-28 17:15:000.5[facility] CbgusevACONMYMDVB0627-29-80 17:15:0079.6[facility] OCBYJTERQI3153-18-00 17:15:009.7[facility] KjozchaMCADEDYYDB6599-28-29 03:32:00 Negative *NA*(06/05/16 10:32 PM)[facility]annCARDIAC CIYUXVA7021-94-56 12:05:0068[facility]annCARDIAC QRCAJKV3161-56-36 12:05:001.3[facility] CARDIAC CHOZPQM6639-05-01 12:05:0038[facility]annCARDIAC NXZIRDT5576-88-92 12:05:003.4[facility]annCHEM YDQGG6459-07-67 12:05:006[facility]annCHEM JMNRQ9296-13-57 12:05:0012[facility]annCHEM HIRTI6036-97-00 12:05:003.1 [facility]annCHEM LNOTT9418-88-92 12:05:0019[facility]annCHEM PANEL 2016-06-05 12:05:0023.6[facility]annCHEM YWBVO8501-25-74 12:05:11243Cedomtwv HermannCHEM ELJNQ7615-60-40 12:05:000.2[facility]annCHEM CBQMX7359-31-12 12:05:0097[facility]annCHEM QOTVZ1507-95-19 12:05:007.4[facility]annCHEM UJXWU0336-75-69 12:05:006.7[facility]annCHEM FEBYW6018-01-15 12:05:0026 [facility]annCHEM QKUHA1356-22-54 12:05:000.9[facility]annCHEM PANEL 2016-06-05 12:05:006[facility]annCHEM ZFAFV5888-47-88 12:05:003.6[facility]annCHEM TPICJ7670-20-36 12:05:04243Yrhqcglf HermannCHEM LZLOQ3271-83-98 12:05:004.6[facility] HermannCHEM GHCOX5051-51-48 12:05:006.76[facility]annCHEM VCNAK9339-38-82 12:05:14098Grtcfunz HermannCHEM FDLNT4887-31-12 12:05:0039 [facility]annCHEM GZQFR8124-24-94 12:05:006.6[facility]annCHEM PANEL 2016-06-05 12:05:002.0[facility] HermannCHEM LMSEM8357-72-60 12:05:82791Qfybyouy ErzpkqbWGOLWDWSFH9507-05-40 12:05:007.5[facility] FysshciMYSHYFMJRL2593-60-46 12:05:68060[place] ZwyzgkzYXKROAZVDY6887-68-62 12:05:00* Test Item Value Reference Range Interpretation Comments MCH (test code = MCH) 31.7 pg 27.0-31.0 [facility] DebsupyDOCWQFKHGG4571-72-54 12:05:0016.3[facility] HermannHEMATOLOGY 2016-06-05 12:05:0033.3[facility] JaoxjssWIMNSIHXON7307-70-30 12:05:003.02[facility] EdwhbzwIBTBGOFTZT5723-74-37 12:05:0095.3[facility] AzzoxijLLXAFGLMXW7368-11-25 12:05:009.6[facility] ZmltrawKNMNVZRBZS5859-94-52 12:05:0028.8[facility] CDSZFGGOSX4377-96-77 12:05:0010.0[facility] UmbceovICNDWXEAHL5354-83-04 12:05:00 0.7[facility] IobdcuiMJCAXZVETG9826-21-01 12:05:00Normal (06/05/16 7:05 AM)[facility] IxcbtjqVMHSTWJVVA3735-84-43 12:05:00Normal (06/05/16 7:05 AM)[facility] [place] GTMCVCFHOJ2244-30-49 12:05:0066.4[facility] NjijvgpJFNUMRAZNS6637-16-83 12:05:00 0.5[facility] CtzlrahCHXKRNEBKI7267-26-04 12:05:006.7[facility] HermannHEMATOLOGY 2016-06-05 12:05:006.6[facility] VtwfzluEBCYQLLIXD7628-91-89 12:05:003.1[facility] CulwfxhQKRGEBNOCA5046-49-37 12:05:0023.4[facility] JwrlcgnFGRUGSSNMZ4132-92-37 12:05:000.3[facility] JtwjcdaNHBHAAWHZD9552-50-72 12:05:002.3[facility] HermannCHEM XBWLC8928-20-00 13:40:005[facility] HermannCHEM PYBLS4549-56-62 13:40:0024[facility] HermannCHEM IRAJQ4991-61-36 13:40:008.8[facility] HermannCHEM GYEGO9652-97-99 13:40:008.2[facility] HermannCHEM KINTI4296-72-14 13:40:0017.2[facility] HermannCHEM VTITH4583-46-10 13:40:0068[facility] HermannCHEM SVDIZ8217-69-32 13:40:48884 [facility]annCHEM DNOEI6427-79-32 13:40:90273Dxtstxbq HermannCHEM PANEL 2015-04-22 13:40:005.2[facility] HermannCHEM OCSKN6191-90-33 13:40:0098[facility] KbpphqwXDOTUMNQRC7088-89-33 13:40:007.6[facility] DnclqiuREBVGDFIXX3006-41-27 13:40:0098.5[facility] NwukzgyOZJTKAHPRI1291-50-41 13:40:83982Ekvktdax [place] HDFOWWAIRQ6280-42-18 13:40:0019.1[facility] JbqwegnHGQFTRWFQJ1753-97-25 13:40:00 33.3[facility] DsfxexyIXLUSCBONW6905-94-57 13:40:00* Test Item Value Reference Range Interpretation Comments MCH (test code = MCH) 32.8 pg 27.0-31.0 [facility] YeusjbnWJWQXRIKZC7348-61-69 13:40:0024.7[facility] HermannHEMATOLOGY 2015-04-22 13:40:008.2[facility] TgcdszxZHVPGXMQYP6416-70-41 13:40:002.51[facility] QkiggymNYEILGKYBZ2994-66-94 13:40:006.8[facility] YhibislBJYHPECJEV4692-82-73 13:40:0019.5[facility] SryhifmFLZCSVCFTK1380-17-18 13:40:007.8[facility] HWZWCQRWLQ8132-28-52 13:40:004.7[facility] LlkdeojOIMNOZWRXS6198-57-60 13:40:000.3 [facility] EasbufmZXRJSBOAPR1918-03-29 13:40:004.4[facility] HermannHEMATOLOGY 2015-04-22 13:40:001.3[facility] RjidkpzHWWPQUFHVX7417-59-12 13:40:000.5[facility] VvcomosRDJTHOLMCK5812-12-43 13:40:000.3[facility] BxcqgarWMHSVLSEEA1875-08-30 13:40:0068.0[facility] PeutjnaEYOFLFAYQXOG9813-37-96 09:33:0022.1[facility] ZIFMGFJNMJUD6420-96-64 09:33:006[facility] AzwzhxmSCCLCDZNWXWX0767-67-66 09:33:00 42[facility] GsyyssqEAZSPRXYSZGQ5076-24-77 09:33:0086[facility] HermannELECTROLYTES 2015-04-17 09:33:008.2[facility] QnjgaeqLXMSBFGSPCSV8959-50-33 09:33:007.6[facility] UpkjwsjOIOSNMKNQCPT3114-18-94 09:33:0025[facility] GrpxgdxIHDDQJHKKYHS6370-02-35 09:33:005.1[facility] YrxczsoPGQNCQVZUMQZ2888-47-40 09:33:21612Ifuwfspb [place] DDTCUVCGKVTO4790-25-15 09:33:0090[facility] IbshgsmLPEUYBVSPC1467-32-34 09:33:00 8.6[facility] WbdwfxzQFAXCRFTIR2766-79-54 09:33:003.11[facility]annHEMATOLOGY 2015-04-17 09:33:0010.2[facility] QilhwdiQCPKLHKHXO2764-25-82 09:33:0033.4[facility] FkyvfrpAWVWTQUDAB2248-46-88 09:33:00* Test Item Value Reference Range Interpretation Comments MCH (test code = MCH) 32.9 pg 27.0-31.0 [facility] IxbvnsrHJDCYWANBC6022-69-19 09:33:0030.6[facility] HermannHEMATOLOGY 2015-04-17 09:33:0098.3[facility] BrjjsfkEWSELXLVFK8317-23-12 09:33:0020.0[facility] FydrouvUXNSJPWIZS7491-96-13 09:33:05365Smnqfzys SvfdhvbLWCURRKFUL6499-24-72 09:33:009.7[facility] PxfzopeLULYLPWLUZ5625-86-08 09:33:003.0[facility] IIXQKLYCIJ5759-55-10 09:33:000.6[facility] AohcitgELVHYYPTNL1012-52-32 09:33:006.5 [facility] CoypbppMEZZOPPPLR1265-21-87 09:33:00Normal (04/17/15 4:33 AM)[facility] JtozjjoCHLBYNVRXN0546-14-66 09:33:007.4[facility] FebhlysBMCWOJXMPJ4619-58-28 09:33:000.7[facility] QjmjcvsTYZPKGWVGR5244-48-86 09:33:000.3[facility] SXCNCZTAWB3223-61-93 09:33:002.2[facility] YbebqyyGWUSHDKFGI8252-32-37 09:33:00 Normal (04/17/15 4:33 AM)[facility] ClakcblMFJFJJPOLL2806-99-52 09:33:0066.5 [facility] YrkmqhcFUWNSZVTVL1138-46-07 09:33:0022.5[facility] HermannHEMATOLOGY 2015-04-17 09:33:000.1[facility] BhujzbmEDAGFRMIOM6206-02-69 15:02:004.4[facility] InlmtpbGBJNZJHGCP1647-48-17 15:02:000.5[facility] TldlvsiQXZOKMSYBV8446-73-68 15:02:000.5[facility] KrbhznaXURQRANNNC1267-08-91 15:02:000.2[facility] QJENDNAQIY0958-71-71 15:02:001.7[facility] TvnnbabOGTNTCMLME4137-68-67 15:02:003.5 [facility] OiakphgVPQNVQTIGC9738-11-48 15:02:007.2[facility] HermannHEMATOLOGY 2015-04-16 15:02:0064.1[facility] SovoczxUGVXIZCYYL3738-49-92 15:02:0024.7[facility] DxemszdAPNALWKSPW7703-03-94 15:02:007.4[facility] MqtzxmhFFYKTZHMTP7657-08-43 15:02:88704Tmfordui CvqhqxeDIQEAZKSTJ9672-98-74 15:02:0020.3[facility] SVJVDJDFOE0774-12-63 15:02:0032.9[facility] OdyzkeiYKDXSVHSTR2939-96-51 15:02:00 99.0[facility] ZidsaadCPONOQFYUR8849-05-77 15:02:00* Test Item Value Reference Range Interpretation Comments MCH (test code = MCH) 32.6 pg 27.0-31.0 [facility] SoidvpwCMQORGFUDE6624-66-37 15:02:0032.3[facility] HermannHEMATOLOGY 2015-04-16 15:02:0010.6[facility] RmssbllEXNAWZMLWL5597-81-82 15:02:003.26[facility] IpckiyiUYHSYYFUHM5211-54-71 15:02:006.8[facility] NxoehutGQCVZNVDDD8801-16-51 15:02:0053[facility] LhkyfnnPILRRUUTTG0808-66-39 15:02:0011.1[facility] HermannCHEM MRIHI4429-40-11 18:40:19971Ahzwxtrx HermannCHEM TMXCM8014-91-57 18:40:0012 [facility]annCHEM QRCOD5296-98-11 18:40:000.4[facility] HermannCHEM PANEL 2015-04-15 18:40:0016[facility] HermannCHEM NRAWH9057-47-87 18:40:72861Yusqupml HermannCHEM AOYCJ5940-29-44 18:40:0084[facility]annCHEM XBICA2774-81-15 18:40:003.9[facility]annCHEM ZSTTM8000-09-37 18:40:008.7[facility]annCHEM DKQPG5772-41-28 18:40:0017[facility]annCHEM ZJMAQ0460-05-92 18:40:0029 [facility]annCHEM FOBMU3024-46-30 18:40:004.0[facility]annCHEM PANEL 2015-04-15 18:40:0036[facility] HermannCHEM ZSYEW0655-15-16 18:40:008.5[facility] HermannCHEM LGIBL5781-36-52 18:40:0093[facility]annCHEM CYEZT0165-99-30 18:40:004.2[facility]annCHEM KNTAP8373-40-27 18:40:76434Qgdfyxbd HermannCHEM NTHOD0982-83-16 18:40:0010.2[facility] HermannCHEM IVJNE4318-66-09 18:40:004 [facility]annCHEM LQKPT9329-43-16 18:40:004.8[facility]annCHEM PANEL 2015-04-15 18:40:000.8[facility] WtkrkwgMYAWEVLCHQ3985-70-93 18:40:00* Test Item Value Reference Range Interpretation Comments PT (test code = PT) 12.6 s 12.0-14.7 [facility] UttrzjbPRJEFDOVVP2971-02-43 18:40:00* Test Item Value Reference Range Interpretation Comments PTT (test code = PTT) 36.1 s 22.9-35.8 [facility] JayicxbHNTOCDPVLR6494-10-39 18:40:000.94[facility] HermannIMMUNOLOGY 2015-04-15 18:40:00Negative *NA*(04/15/15 1:40 PM)[facility]annCHEM PANEL 2015-01-11 12:54:99984Bzpzkoyl HermannCHEM YYFKZ0081-88-21 12:54:006[facility] HermannCHEM COWCH8801-72-12 12:54:63377Kiticohr HermannCHEM MPLCX4998-54-70 12:54:009[facility]annCHEM PEJTD1194-52-67 12:54:003.5[facility] HermannCHEM TIKOW3965-59-67 12:54:0026[facility]annCHEM TSDBO5016-72-75 12:54:007.3 [facility]annCHEM WGLEN1400-73-13 12:54:0093[facility]annCHEM PANEL 2015-01-11 12:54:0057[facility] HermannCHEM RMPRB4390-80-18 12:54:000.5[facility]annCHEM RWOIX0951-34-63 12:54:007.1[facility]annCHEM YRZQM7969-39-97 12:54:0024[facility]annCHEM OLIBT9548-70-99 12:54:007.9[facility]annCHEM AFOFD5527-98-31 12:54:004.9[facility]annCHEM JKCEY7923-81-72 12:54:02075 [facility]annCHEM EYNPI1192-77-33 12:54:36600Xzfpwdrc HermannCHEM PANEL 2015-01-11 12:54:000.9[facility] HermannCHEM VHAHP3632-04-56 12:54:003.8[facility]annCHEM SQVYS0336-94-25 12:54:0018.9[facility] HermannCHEM PEBNV7815-65-41 12:54:008[facility] ZtcpghtCPEDDVQSEA3109-20-03 12:54:00* Test Item Value Reference Range Interpretation Comments MCH (test code = MCH) 32.0 pg 27.0-31.0 [facility] YfcnmagWSCZVMHWGN0572-58-64 12:54:0033.0[facility] HermannHEMATOLOGY 2015-01-11 12:54:0097.1[facility] YuzyhsqYTEKZQLUZA5041-26-86 12:54:0016.3[facility] VumpqmcUYFLRZTLCG3567-35-50 12:54:0032.3[facility] OysgpbbDKETGJOUTQ6122-88-89 12:54:05895Xymrwwnz JahsgmfLREJPDIYGG9450-92-94 12:54:007.1[facility] YXVBVNUELU0441-09-01 12:54:0010.7[facility] OkgqwieDHJACZZIJC5981-97-01 12:54:00 3.33[facility] YzxqqnsVAFXTJQHFF6963-25-68 12:54:006.4[facility] HermannHEMATOLOGY 2015-01-11 12:54:000.4[facility] BhyulpnNPYJHFEIEO2146-21-98 12:54:000.5[facility] UcafwdpDYWWLEZJTP3551-72-28 12:54:001.4[facility] XsajywyHCEUHBFMYX0099-67-16 12:54:008.3[facility] HnprmsrSGKTRFJWKW9145-90-35 12:54:005.8[facility] FNVJVLGHKZ2021-86-99 12:54:004.0[facility] EgsmqozKPKDXLGGWC7151-71-65 12:54:000.3 [facility] MndgsahNJWYOTOYQP1730-08-54 12:54:0022.4[facility] HermannHEMATOLOGY 2015-01-11 12:54:0063.2[facility]annREFERENCE LAB VDBVICJ9660-23-89 19:17:00 See Report 20(11/06/14 1:17 PM)[facility] HermannANEMIA YBTOQ0981-79-56 18:07:11938 [facility] HermannANEMIA GAPZJ0778-62-99 18:07:19849Frsdjtyx HermannANEMIA STUDY 2014-11-06 18:07:82420Riwhtuxa HermannANEMIA KHJRI8004-56-24 18:07:0838[facility] HermannANEMIA KDNDV6249-36-11 18:07:473007Wzqbilkz HermannCHEM AWFEF2560-64-77 18:07:0833[facility] HermannCHEM GAYHW9050-13-32 18:07:083.5[facility] HermannCHEM OOHXK4901-26-62 18:07:085.1[facility] HermannCHEM MDTHW3637-69-47 18:07:082.3 [facility]annCHEM PMVPE8413-67-17 18:07:088[facility] HermannCHEM PANEL 2014-11-06 18:07:080.4[facility] HermannCHEM TFHMI4795-94-17 18:07:0826[facility]annCHEM KFOFN6511-55-87 18:07:0820[facility]annCHEM MGLTJ4414-77-67 18:07:92954Ftupkppp HermannCHEM LYAYS0491-67-24 18:07:084.0[facility] HermannCHEM LSLQM4815-38-89 18:07:088.9[facility]annCHEM DZMJL8838-61-87 18:07:0830 [facility]annCHEM LSBSB0372-41-23 18:07:088.2[facility] HermannCHEM PANEL 2014-11-06 18:07:0869[facility] HermannCHEM UWDCF4379-70-95 18:07:0899[facility] HermannCHEM GQSDK0233-15-37 18:07:085.2[facility]annCHEM HOTMG5648-29-47 18:07:085.5[facility]annCHEM ODXYJ9587-65-34 18:07:0845[facility] HermannCHEM TZPBU1925-61-87 18:07:09175Xpzyliyy HermannCHEM IAEMJ0451-89-51 18:07:081.0 [facility]annCHEM UKEAL7120-15-82 18:07:088[facility] HermannCHEM PANEL 2014-11-06 18:07:084.2[facility] HermannCHEM ZLONW2697-78-60 18:07:0813.2[facility] HermannDRUG GWKJME9896-12-92 18:07:08Negative (11/06/14 12:07 PM)[facility] DRUG NYDGHB8573-28-57 18:07:08Negative (11/06/14 12:07 PM)[facility]annDRUG TJMVWR3608-03-45 18:07:08Negative (11/06/14 12:07 PM)[facility]annDRUG SCREEN 2014-11-06 18:07:08Negative (11/06/14 12:07 PM)[facility] HermannDRUG SCREEN 2014-11-06 18:07:08See Note 4(11/06/14 12:07 PM)[facility]annDRUG SCREEN 2014-11-06 18:07:08Negative (11/06/14 12:07 PM)[facility] HermannDRUG SCREEN 2014-11-06 18:07:08Negative (11/06/14 12:07 PM)[facility]annDRUG SCREEN 2014-11-06 18:07:08Negative (11/06/14 12:07 PM)[facility]annDRUG SCREEN 2014-11-06 18:07:08Negative (11/06/14 12:07 PM)[facility] HermannDRUG SCREEN 2014-11-06 18:07:08Negative (11/06/14 12:07 PM)[facility] HermannHEMATOLOGY 2014-11-06 18:07:080.6[facility] LkdgglrEGGQMVLTTK5180-13-33 18:07:080.5[facility] JulmsplSVSUGHFLCR9745-45-14 18:07:082.0[facility] AejwqdxNKDSKJUJNF3956-44-51 18:07:083.8[facility] QxbfqdpIXVIRXUFOT1971-44-78 18:07:080.5[facility] JHCEPPYGOO4835-01-48 18:07:088.3[facility] LerkjhnCAKZOSNJMA9640-60-74 18:07:088.0 [facility] ZcxhjjwCMIMGTRMQW8327-72-86 18:07:0828.7[facility] HermannHEMATOLOGY 2014-11-06 18:07:0854.5[facility] XlkxzxrOMZENHNZLW8875-77-39 18:07:64606Cdamwqfw MmcahlnRDFYPGPMIC9810-18-02 18:07:08Negative (11/06/14 12:07 PM)[facility] NIXKSZOEAP8993-91-75 18:07:63638Weuxwsnb FugipcuEVOKOAPVQK7807-91-46 18:07:84629 [facility] FsnwekcKSPSBVAFSH1246-04-54 18:07:08Negative (11/06/14 12:07 PM)[facility] WqburxcGGMZZTXVSC0341-02-33 18:07:080.97[facility] CnmdsbuMNPLFZOGKA0716-35-91 18:07:08Negative (11/06/14 12:07 PM)[facility] JcbjprpGWKFGVNNGS0470-03-87 18:07:08 1.05[facility] KhtspvjWIWRQHWOGP6071-85-46 18:07:08* Test Item Value Reference Range Interpretation Comments PT (test code = PT) 13.7 s 12.0-14.7 [facility] HoodyjfQORZGCPSMY4870-08-60 18:07:08* Test Item Value Reference Range Interpretation Comments PTT (test code = PTT) 38.5 s 22.9-35.8 [facility] XngosnwNYMKLDMTEZ4943-37-42 18:07:0814.1[facility] HermannHEMATOLOGY 2014-11-06 18:07:088.1[facility] IymdkhlDHPARDEBDN8377-24-18 18:07:21213Kuwwspye RbbchydWBOALGQSYS3870-15-83 18:07:0831.2[facility] BmtonpsXBLNHFGTXE2016-78-54 18:07:0838.1[facility] ZwyysvqGQPMLODKPY6703-40-91 18:07:0891.3[facility] FTQJQRRZSI5638-09-37 18:07:084.17[facility] FuhsjxaSDHKUHGEXS8181-24-60 18:07:08* Test Item Value Reference Range Interpretation Comments MCH (test code = MCH) 28.5 pg 27.0-31.0 [facility] IlhdlznNUKCBADIXF9744-08-90 18:07:0811.9[facility] HermannHEMATOLOGY 2014-11-06 18:07:086.9[facility] HtigsbxOWFFKJJREC9387-57-62 18:07:0831[facility] KaqszhpJYSOBGABIV8799-52-57 18:07:080.63[facility] AjgcanqKSVARBDIDO8072-14-99 18:07:083.0[facility] XawvrxgTKQNBRKYGH0476-83-64 18:07:08Non Reactive *NA*(11/06/14 12:07 PM)[facility] UqsnwcrSGMQLRILZX6674-41-01 18:07:082.4[facility] ZfaypgdHRGXVAWJCL2240-77-38 18:07:081.6[facility] JeoeffdWBNGFLAKSQ3408-87-31 18:07:0846.3[facility] GhrbpgkQYRFAMYSAQ3580-72-95 18:07:0825.0[facility] VWSNSTIFCI9748-51-33 18:07:080.2[facility] MxvdorqDBGFUEIPAX9300-76-04 18:07:08 Reactive *ABN*(11/06/14 12:07 PM)[facility] TplhslmWRKMDATJPD9290-31-53 18:07:08 1.28[facility] EpcwagnVAPGCJIROC2509-78-66 18:07:0811.9[facility] HermannIMMUNOLOGY 2014-11-06 18:07:083.4[facility] MvznqiyPSLQHRCNCT6138-39-66 18:07:0815.6[facility] PjrgewzBMUXNRENIU8217-02-73 18:07:0811.3[facility] DqqbbuiUNNBHSPGMO3267-55-42 18:07:0857.8[facility] JpeowqaBTWFXUIKJV3198-20-71 18:07:080.93[facility] KXBJOTFULK6884-10-60 18:07:080.98[facility] NrqfbjoPTVKBLOJNG6096-29-96 18:07:08 0.28[facility] ZchsviwAOHBOARDOQ6459-06-84 18:07:084.74[facility] HermannIMMUNOLOGY 2014-11-06 18:07:088.2[facility] BxehljoRAPIIKZYCA9947-42-39 18:07:08>8.0[facility] EbighjmZBZIECZLTX2973-52-70 18:07:086.4[facility] ViunfxaXWYFTXMLKQ7280-20-97 18:07:081.45[facility] IreqagfPKWQXGHZNK6981-82-33 18:07:60795.32[facility] QVOYIIEXXU9121-00-58 18:07:80717.57[facility] FdehckwEKMINCVNUK9569-07-28 18:07:08 Negative (11/06/14 12:07 PM)[facility] GtolopgFSWSGNXNKM8672-98-05 18:07:08Negative *NA*(11/06/14 12:07 PM)[facility] EqsxnheAXRSLSWAQW4328-65-12 18:07:086.6[facility] VlcnsheXLMQKENWID9470-33-38 18:07:08Negative *NA*(11/06/14 12:07 PM)[facility] UqmspufABUXINYEUU9401-18-49 18:07:08Negative *NA*(11/06/14 12:07 PM)[facility] ExdjeawHDCMXXRHOC4455-64-23 18:07:08Negative *NA*(11/06/14 12:07 PM)[facility] MfdaragUTZUUYTQNJ1556-35-13 18:07:08<0.2[facility] AprausaTWPHUCHPZH0570-91-44 18:07:08>8.0[facility] QzrlpqjFUPWAQ6776-80-41 18:07:082.97[facility] HermannLIPIDS 2014-11-06 18:07:0875[facility] WbbtbruBZEYCF6562-52-55 18:07:0845[facility] HQUIVH4894-32-63 18:07:71889Nuehlvxi DvdutkxMOHDSP0146-70-66 18:07:10806Osixxtno JwlspdxGRDNXB7203-81-26 18:07:0861[facility] HermannMOLECULAR ZKGUMMVOKA5680-24-77 18:07:08Negative (11/06/14 12:07 PM)[facility] HermannMOLECULAR DIAGNOSTIC 2014-11-06 18:07:08<2.0[facility] HermannSPECIAL SMHBEJXEQ5935-41-06 18:07:085.5 [facility] JsrscgqELLXDDEMHU8546-52-67 18:07:44718Shzhagdj HermannCARDIAC ENZYMES 2014-09-19 13:47:000.7[facility] HermannCARDIAC RVVSRXE9064-70-82 13:47:00<0.02 [facility] HermannCARDIAC GNVZHLC9639-03-20 13:47:0059[facility] HermannCARDIAC EBWPHFA2908-75-08 13:47:001.2[facility] HermannCHEM IOHUH9890-95-80 13:47:005.1 [facility] HermannCHEM XXKZK3672-49-41 13:47:002.3[facility] HermannCHEM PANEL 2014-09-19 13:47:006[facility] HermannCHEM EQRFD7593-84-11 13:47:007.3[facility] HermannCHEM AGMMD0022-07-07 13:47:0026[facility] HermannCHEM RYPHU6605-48-61 13:47:003.4[facility] HermannCHEM HBBCM3665-26-44 13:47:0052[facility] HermannCHEM CGXMH5579-79-24 13:47:006.8[facility] HermannCHEM NAILA9698-10-57 13:47:82425 [facility] HermannCHEM JCCAP0309-09-81 13:47:005.6[facility] HermannCHEM PANEL 2014-09-19 13:47:17150Zoxydrgf HermannCHEM NSRSU3791-22-78 13:47:0098[facility] HermannCHEM DHVFQ8716-95-75 13:47:0015.6[facility] HermannCHEM NAAXP8964-44-24 13:47:008[facility] HermannCHEM THIML5759-23-56 13:47:003.6[facility] HermannCHEM LMNAV2505-36-01 13:47:000.9[facility] HermannCHEM VIMFH4138-43-73 13:47:0018 [facility] HermannCHEM MOCSI8640-49-70 13:47:000.3[facility] HermannCHEM PANEL 2014-09-19 13:47:11781Emcbmlsf HermannCHEM RWJRK4634-05-13 13:47:007.0[facility] HermannCHEM YNCKV8456-72-39 13:47:0034[facility] OhwbhzyMHDMIYWBUNAQM4828-35-90 13:47:00Negative *NA*(09/19/14 7:47 AM)[facility] ZtiqclhNASRKSZJRZ5971-25-37 13:47:006.9[facility] QpbrefoGMFUXQCRZK9716-33-31 13:47:003.32[facility] IABRKYHKWQ7455-93-74 13:47:00* Test Item Value Reference Range Interpretation Comments MCH (test code = MCH) 30.8 pg 27.0-31.0 [facility] HryrnzcFDWTIMZPOY5879-42-76 13:47:0094.3[facility] HermannHEMATOLOGY 2014-09-19 13:47:008.8[facility] HvqghquLUOXWQPCKZ7683-79-83 13:47:0031.3[facility] ZnfwndsRBVJMCNMTG5099-30-07 13:47:0010.2[facility] YzsfqilFDNQADDEVN1234-70-61 13:47:0014.2[facility] GaylmwrKQKKSKYEGA9107-79-72 13:47:93220Lhnqgkol [place] QNJJEHJKOQ5647-65-74 13:47:0032.6[facility] AkdgaucPVAXVGCXOP4528-13-32 13:47:00 1.7[facility] TzanotaFDWSMXCNEZ8433-97-96 13:47:000.2[facility] HermannHEMATOLOGY 2014-09-19 13:47:000.5[facility] VntecbmZSAQTGJYSJ4076-11-63 13:47:0025.3[facility] ApananuPQGXWSSEAQ7525-79-75 13:47:0063.9[facility] LnfyoppUKUALNERVK3751-74-49 13:47:007.4[facility] RpirwblHZNPPNCWIO2188-73-35 13:47:002.8[facility] MNKOMMRHRB7546-09-72 13:47:004.4[facility] XtewqxpANWLRUBFDC9794-37-98 13:47:000.6 [facility] HermannCHEM UWAQQ8019-69-81 12:53:01119Nnxbocnw HermannCHEM PANEL 2014-09-03 12:53:86410Evonqfcc LoozdhaGOLBOBTSHVJR7548-95-31 12:53:90150Doldyzfk UywbdkbNZEPSQULOBNP6891-33-52 12:53:004.2[facility] XbyzytoLMKEBEAMSLYZ0491-83-83 12:53:0097[facility] LfakrohIXAMKJTYFCYD6422-64-19 12:53:005[facility] PQOSVKSGMFEK5193-44-95 12:53:000.5[facility] GotmgsdQHBKLTGVPLAE9057-07-41 12:53:86546Hcmabyis OzupyoaSBMPJDJEUGFE5555-63-49 12:53:007.5[facility] YSKCCMFDPTGV0747-38-18 12:53:007.5[facility] DjgxcdfSMXYRDRRAQCG6376-99-41 12:53:0028[facility] DkpqljrUGQWENOXNLBC1428-33-01 12:53:0062[facility] DHTVUFNZSRAM7747-03-41 12:53:0027[facility] QbtbumfPAZNVKEPIBRL7226-98-96 12:53:00 3.7[facility] FiqyhvjWSZTBZHOBNME9906-61-46 12:53:008.8[facility] YAVKDPAEWGCQ1385-64-19 12:53:10903Lpxihers NyqnrjpAXYLXYYTMYIN3328-21-76 12:53:0015[facility] HutwzdtLHGHXLXKSHOB9678-87-69 12:53:001.0[facility] QMIFTBFPWRPI1615-39-83 12:53:003.8[facility] SfauvfyZFCCJUPKSQEJ2056-26-99 12:53:007[facility] InjgrlrZRYYLNBPPBKA9070-98-37 12:53:0016.2[facility] CUTEFZAGLN3784-41-18 12:53:00* Test Item Value Reference Range Interpretation Comments MCH (test code = MCH) 31.4 pg 27.0-31.0 [facility] LqipubuQCCOAAOKSE1254-04-25 12:53:007.4[facility] HermannHEMATOLOGY 2014-09-03 12:53:32522Vrewhyxj TntarqdSQRYBARYST2651-79-40 12:53:0010.1[facility] LfyzzzgYYNJSAFPKG4732-14-33 12:53:0014.2[facility] NkwinnsWTEONGWOJO7280-27-89 12:53:0034.0[facility] YgpkbfgYXVSRTUJAY6019-41-66 12:53:007.1[facility] LFAHPBKNDS7972-38-07 12:53:003.21[facility] QnmlcmyNGKKOTHXGD5352-46-21 12:53:00 92.5[facility] VchpvaoMNBCWEKHJU1846-31-26 12:53:0029.7[facility]annHEMATOLOGY 2014-09-03 12:53:0025.1[facility] WdtmockGHQACTZMUT9824-21-23 12:53:008.0[facility] EraiqpbDMVEVEPWTG5074-18-24 12:53:001.8[facility] ZaazxlbRVJLTSKRWJ1570-57-66 12:53:000.6[facility] YzeujgiYSKARMSQKT4339-62-52 12:53:000.3[facility] [place] [facility] DJTBEDNBRH8984-14-74 12:53:004.5[facility] NleefldWFGRGRNYDS6491-96-43 12:53:00 62.9[facility] OdzpcugPGEETUVYRT2498-37-34 12:53:003.6[facility]annHEMATOLOGY 2014-09-03 12:53:000.4[facility] ZpflwewLSCJNJXKSA7987-64-81 12:53:00Negative (09/03/14 6:53 AM)[facility] HermannANEMIA EYUIN3028-92-83 10:32:94026Idojaryx HermannANEMIA HDIVK9861-91-78 10:32:0039[facility]annANEMIA SWXAI0193-54-69 10:32:36149Ozpsjfde HermannANEMIA ARZXU4553-13-96 10:32:02627Jhqquive [place] ANEMIA UFQOV0657-73-14 10:32:05448Retxtuvn HermannANEMIA XNMQZ6107-98-37 10:32:66563Vefkgiij KbeyfjnFSQYGPPVLD4802-00-51 10:32:007.5[facility] WGVKHMMGKG1985-82-24 10:32:25442Hpbfohsx QgqplasGYGUPQFYUY8364-17-72 10:32:00 33.7[facility] PignfrxBLMLNHZXXS2543-48-59 10:32:0013.9[facility]annHEMATOLOGY 2014-08-02 10:32:0091.9[facility] CqdgbbrQOBBAPSFYK4975-43-25 10:32:00* Test Item Value Reference Range Interpretation Comments MCH (test code = MCH) 30.9 pg 27.0-31.0 [facility] YkpbfekUWWMYAAXMT3704-19-32 10:32:008.4[facility]annHEMATOLOGY 2014-08-02 10:32:0025.0[facility] NcrlijiWSYIOMCTMZ1420-48-55 10:32:002.72[facility] UsyeoapYYQOXDZAZR5572-95-61 10:32:005.5[facility] CfgrygnIVLITJAWXT2761-69-15 10:32:009.0[facility] XyikgwcWTJBAQFKIH1704-74-31 10:32:004.3[facility] [place] LAIBYZNQYD0515-02-86 10:32:000.4[facility] FxsbyyzKEGEVBOTXZ6614-27-76 10:32:00 54.9[facility] OyprpoqRSFKZHJMJW5895-35-02 10:32:0031.4[facility]annHEMATOLOGY 2014-08-02 10:32:001.7[facility] QaioxxqMFCRMXZQGF3809-23-84 10:32:003.0[facility] DdcblpxPKXPHKRUGC2677-36-82 10:32:000.5[facility] WzksqhnMWJPWQJMAQ3962-41-46 10:32:000.2[facility] KlladspESTRPNOVSX1016-27-47 10:32:0063[facility] XLJPZTSIWL0954-10-22 10:32:00Negative *NA*(08/02/14 5:32 AM)[facility] MJRKSZYHBU4994-98-14 10:32:006.1[facility]annBL[facility] BANK YLBBIEP2571-91-95 19:03:00Product available 2(08/01/14 2:03 PM)[facility] RESULTS 2014-08-01 13:46:00Positive 1(08/01/14 8:46 AM)[facility] RESULTS 2014-08-01 12:36:00Product available 3(08/01/14 7:36 AM)[facility]annCARDIAC OFRHDSA0945-66-57 11:39:001.0[facility]annCARDIAC VYJBMVA2912-77-29 11:39:00< 0.02[facility] HermannCHEM CBNVE6273-84-40 11:39:002.2[facility] HermannELECTROLYTES 2014-08-01 11:39:0015.5[facility] MudycziEIVMTXKPULEK0705-94-91 11:39:009[facility] XggyytnGXEQUPOBIOHO9096-54-89 11:39:004.1[facility] FmnaptfTCMGTBZGNRCP6720-12-50 11:39:000.9[facility] KeghitfUOAULDEELSVX7597-94-33 11:39:006[facility] [place] QYOTWCMTFZQY1736-04-55 11:39:11530Rfyhrpqn SerdlidSYZTCDXZUYNC6028-28-43 11:39:000.4[facility] FssiqqwGIXQVJGRVLNT9393-90-52 11:39:003.7[facility] ZECAAFMSYSLO2193-48-91 11:39:0036[facility] SvxjwgdYUFNYJMUFKMN4572-19-65 11:39:00 29[facility] RlrhvqtMXZAKPRURHRS8953-04-44 11:39:007.8[facility] HermannELECTROLYTES 2014-08-01 11:39:0029[facility] XysiqijODMWUMCPXLJV3855-96-39 11:39:007.8[facility] YysisjvKJFWUOVTJJJZ4157-83-56 11:39:006.8[facility] QkikhrtPDTHJZRGAORQ2783-86-25 11:39:10307Zfhegziu ItkkkguOFZJHUZFAUGO7360-52-41 11:39:87732Uypczdgy [place] DSWOUCPSUPAI5266-28-90 11:39:0058[facility] ZvrtwlvCXNMROQWZRBI4731-10-63 11:39:00 4.5[facility] WxntziaGBUHIBLRZVTS0365-28-24 11:39:0098[facility]annHEMATOLOGY 2014-08-01 11:39:00* Test Item Value Reference Range Interpretation Comments PTT (test code = PTT) 38.1 s 22.9-35.8 [facility] QaqzzyoRKQESUREYJ7474-56-29 11:39:00* Test Item Value Reference Range Interpretation Comments PT (test code = PT) 13.1 s 12.0-14.7 [facility] NvnhjlcWQUIBRTHKC1678-92-48 11:39:000.99[facility]annHEMATOLOGY 2014-08-01 11:39:30810Bvdeegma GoughfuPNCSAMQNTG0568-72-22 11:39:0013.3[facility] LoumyaiJZMGQWAKRZ2486-22-15 11:39:007.4[facility] UcewosrXLHHLZDSWG8764-02-57 11:39:0033.7[facility] OxxfwtiCPTTYWEFJA6940-39-22 11:39:00* Test Item Value Reference Range Interpretation Comments MCH (test code = MCH) 31.0 pg 27.0-31.0 [facility] BnhklsrMIXGFDCTOI0357-44-87 11:39:006.2[facility]annHEMATOLOGY 2014-08-01 11:39:007.6[facility] MighthyAOADDDXSJE7213-10-13 11:39:002.46[facility] RmqxqyaVANFKCWGOE1098-54-92 11:39:0022.6[facility] JlsxwzzRLHNSYEXNZ1930-85-43 11:39:0091.9[facility] XcazunrMNLSLRDMND5389-29-74 11:39:000.3[facility] USDLQVHTAT2238-07-36 11:39:0025.3[facility] QynnjukJRRCUVWREB6165-08-83 11:39:00 8.1[facility] XzrnvtnKRZOEFKKEK5434-11-78 11:39:004.5[facility]annHEMATOLOGY 2014-08-01 11:39:000.4[facility] MasqzsrEIUFLKQPUF0102-21-76 11:39:003.8[facility] FwhtfrvGNWOQNXOQP5677-40-24 11:39:001.6[facility] BcqfitmOQLOZOMJAN4889-79-23 11:39:000.5[facility] PwdemsmUCOIBSGBKJ7398-51-46 11:39:0061.7[facility] [place] BEDSIDE GLUCOSE FBVFOXV7862-50-53 20:57:27399Wzmvzehe InlmqstJWDLHHIEH6004-85-20 16:00:0014.1[facility] JbykgonXTSDEQVWT0176-72-30 16:00:0010[facility] [place] CGRYJTHDV0650-12-53 16:00:008.2[facility] MeohiqqDBUTLAFHD1121-30-19 16:00:0027 [facility] ZljueinFZPVGRJEI6376-96-07 16:00:004.7[facility] HermannCHEMISTRY 2013-11-29 16:00:0035[facility] FkzsbxkRTFYILICK8470-06-71 16:00:0082[facility] CxjwrswRBNWWQCPC0926-71-82 16:00:87176Uuhyifps QlfmdqzWDDCAXWXB0843-86-98 16:00:005.1[facility] ZlspymiHGZWIGXRO3035-00-16 16:00:38031Kbpomwoc [place] PRGIIWJIRG9366-14-93 16:00:000.0[facility] TohxvnkZZMTLCIBQW3424-78-14 16:00:000.5 [facility] SnddtgvGUYJYKHVYJ5929-67-52 16:00:000.2[facility]annHEMATOLOGY 2013-11-29 16:00:001.2[facility] GwcjjqaYOEPHPJBLX7077-02-93 16:00:002.9[facility] DydxhmyFBZFVILGCU0415-89-00 16:00:004.9[facility] KuhpukoWUPITIDKBR7889-58-60 16:00:009.4[facility] MgfskgtLNUKVFNOPP7853-04-60 16:00:000.3[facility] VEOSVUOZVL9759-42-99 16:00:0025.3[facility] FlmazulHZJXRDGNZF8764-37-15 16:00:00 60.1[facility] GmteovxKMVWTRMJUX4718-86-77 16:00:007.0[facility]annHEMATOLOGY 2013-11-29 16:00:59248Fgonbasu MqjvhuoLOMQTVCRIG4506-95-22 16:00:0093.1[facility] XrjldvhJFCHYXVNJJ1323-14-01 16:00:0023.6[facility] TwcszjjIYKTPKXFCL0917-80-77 16:00:0033.0[facility] ZzxnhxjIMDUYSNUKY1069-55-01 16:00:00* Test Item Value Reference Range Interpretation Comments MCH (test code = MCH) 30.8 pg 27.0-31.0 N [facility] QtwdtqnJEVHKAVTYU9426-28-24 16:00:0014.1[facility]annHEMATOLOGY 2013-11-29 16:00:004.8[facility] QvbqtnvESCUTXKQZW6546-05-25 16:00:007.8[facility] TwephgcJZZVBLWNMO0961-97-90 16:00:002.54[facility] HermannBEDSIDE GLUCOSE TESTING 2013-11-29 13:57:0065[facility] HermannBEDSIDE GLUCOSE OPBGSVL5099-95-84 11:55:00 73[facility] RhncsddOGDQMUVNB5518-35-78 11:00:0016.7[facility] HermannCHEMISTRY 2013-11-27 11:00:006[facility] QivrcnnAKEQYYZCQ7867-82-09 11:00:003.6[facility] QnsefsjRTWVGJVYK9376-21-18 11:00:000.7[facility] YcrazyySRPPFYIJJ9380-18-31 11:00:008.2[facility] SnhacabIYBGVUTHU6022-48-07 11:00:50375Mhnoljcn [place] QASKWECMG1952-55-04 11:00:28102Ibltirnc QixrnjdIYINWVVZP8510-71-89 11:00:004.7 [facility] WozvozsTAZAZDVKR2354-35-69 11:00:009[facility] RijbvcqOVFOLYFXF1548-05-95 11:00:0018[facility] AfhclpcRSXAGOYZI5629-65-92 11:00:0017[facility] TQFORRLAZ1811-49-33 11:00:000.7[facility] JnjdfedSWEZRZXOZ6917-70-80 11:00:24796 [facility] YbppfecHLESEARUV3247-10-57 11:00:005.4[facility] HermannCHEMISTRY 2013-11-27 11:00:006.0[facility] GuvalyeSRMVPHLWC0705-22-46 11:00:0021[facility] TfayjwxLZEKQZOLV8525-38-09 11:00:002.4[facility] AjyoaehEYOZHPUUB6421-97-08 11:00:48006Wgfddgba CsrocvvXLHSSXBNW1302-39-60 11:00:0030[facility] MJTPEQHNCL0853-83-65 11:00:0026.9[facility] XcpaixzHSSMESWSLF3504-57-53 11:00:00 93.3[facility] MngqeyaPAEKJSXXWM4490-64-28 11:00:00* Test Item Value Reference Range Interpretation Comments MCH (test code = MCH) 30.7 pg 27.0-31.0 N [facility] HxsaqgqMCKBZCMDKM1879-01-76 11:00:002.89[facility] HermannHEMATOLOGY 2013-11-27 11:00:008.9[facility] NwtxvpoKCMIHZSFRV4103-87-53 11:00:005.4[facility] GqbdvvqSQSTUUNSQE4442-18-68 11:00:52590Haoosksf HjczawlBZQTPDKGRX7063-07-61 11:00:006.7[facility] LktswskSDUTYXPIWZ6988-12-08 11:00:0014.2[facility] RQCJADVMVS6877-97-85 11:00:0032.9[facility] ZspqbixISRJJYMLUJ7553-68-52 11:00:00 0.3[facility] LtayvcaCTEDOAKSGO4649-23-36 11:00:004.3[facility]annHEMATOLOGY 2013-11-27 11:00:000.6[facility] HrdecdlHZIUKLIAQS8666-84-75 11:00:000.2[facility] OhyhvjoREVYLCQXWK2690-64-23 11:00:002.3[facility] HipkswiKGUPYHTTHV1814-77-63 11:00:000.1[facility] JvjggioEISBFZWXQM9168-86-20 11:00:000.0[facility] KJZPOPNCME7230-23-74 11:00:0011.2[facility] ZnziwlzBEUCIJYFTK2506-88-53 11:00:00 5.7[facility] UanzbywHJUNRYOGKR9138-89-69 11:00:00Normal (11/27/2013 05:00:00) [facility] VqhezetRUSZZSWVKD8497-88-63 11:00:00Normal (11/27/2013 05:00:00) [facility] KlxsloiWJXPEMJMEC9276-47-29 11:00:0080.6[facility] HermannCHEMISTRY 2013-11-26 22:55:1231.1[facility] FpucblxZNJPCUUQY2143-15-45 22:25:2127.7[facility] ZrbgrpgFFSDWPBID3451-03-13 21:43:087.2[facility] DwihamtRIBSKGTKM0058-26-64 11:00:0086[facility] RmvmydnKPDNRYJOK7071-23-80 11:00:318287Bewislxw [place] STXLVBBTN5465-67-12 11:00:0024[facility] KlzjgejWTPQWZLDG8833-23-43 11:00:0079 [facility] OiimfgtNIFQAGWJN7823-36-73 11:00:25441Vonljtli HermannCHEMISTRY 2013-11-25 11:00:0025[facility] ZouucutHMYTDQXBY7040-23-86 11:00:89408Tazhmfdh XsudgkfBELLFQOCV3846-67-17 11:00:004.2[facility] GvfktesAHZDBRLTI8138-81-47 11:00:38742Cgtukhlt AlpbjjwIEMYJELYN0676-97-21 11:00:0019[facility] CKSRRGEGT7765-56-66 11:00:0016.2[facility] XxbabscICRLACVBC7240-15-69 11:00:0028 [facility] TlbrqxpIQSRPAXGZ0622-92-92 11:00:002.8[facility] HermannCHEMISTRY 2013-11-25 11:00:0014[facility] OabinbzFOUJUGCKT9065-10-68 11:00:0064[facility] DbpmpkbRHXTCYXBS5491-42-73 11:00:007.2[facility] ZatozwsLYRFWWSLCB8792-58-94 11:00:0013.7[facility] YpdmwsqTLNBHSFBTF1175-63-18 11:00:77181Pfbalcmd [place] EYQSXIBWXM9580-21-42 11:00:0033.7[facility] CpsworoWXCHOULKHG1914-14-03 11:00:00 92.5[facility] ZqldkahMIJCCWLZPS5811-47-74 11:00:00* Test Item Value Reference Range Interpretation Comments MCH (test code = MCH) 31.1 pg 27.0-31.0 H [facility] WrllumnFVUXEQVAZX0174-08-21 11:00:007.6[facility] HermannHEMATOLOGY 2013-11-25 11:00:0022.4[facility] UmpwegmICAOFULXVG1519-89-43 11:00:002.43[facility] ThbbimiLQQKVLTGTM3425-80-16 11:00:003.6[facility] KfdhkskRNAHNLUQSM7897-55-12 11:00:007.5[facility] XzfofmtZKSHIKLDRA2272-41-15 11:00:000.0[facility] QEZDKHEUOP0564-44-43 11:00:000.5[facility] JvvakfrTTSQPLDQFX7258-03-18 11:00:000.1 [facility] EzjueliAHSCMFVKZY8761-13-29 11:00:001.0[facility] HermannHEMATOLOGY 2013-11-25 11:00:002.0[facility] OjesuijNCWTXJDKEJ1844-65-96 11:00:004.1[facility] UtjtbqlRPHNVYFMTK1908-95-35 11:00:000.3[facility] GmvblmmWMMDVUXBBD1436-42-81 11:00:0012.7[facility] MbtkfjhEFYTCDLOQM2244-65-72 11:00:0027.2[facility] RIOBHHGLRD8722-77-74 11:00:0055.7[facility] NplcaifSNKDFQUFP9251-85-90 11:30:00 0.680[facility] TkttiigBVHFFFIBL9495-32-16 11:30:008[facility] HermannCHEMISTRY 2013-11-24 11:30:000.7[facility] HbqcikyMXUATWALG7580-92-92 11:30:0016[facility] NbmoyhtDCSUXYSKM5230-55-08 11:30:28280Akolkfoz MqdwjivROLRAMULO4689-07-12 11:30:000.7[facility] WqsredaARCDQPHEY7474-65-06 11:30:006[facility] LTZFBCGBV3442-05-86 11:30:005.3[facility] UxngdwyRGBISXBUT1854-55-99 11:30:002.2 [facility] RjkundiSMDMQOCDT0356-02-77 11:30:003.1[facility] HermannCHEMISTRY 2013-11-24 11:30:00<5[facility] WzqslamPBCTUZCOY8825-79-81 11:30:0012.7[facility] LpdyqjiUNKWJALDWF2073-80-36 11:30:0070[facility] NsudauaHNQWWGDMJ9151-36-43 03:06:4831.6[facility] HermannINFECTIOUS NWEZFXSM7036-27-04 17:04:00Negative 1(11/23/2013 11:04:00) [facility] IzcplooZOGLVPFBC9622-29-37 15:03:000.4[facility] EzoiyqmSYZUHKCTB7973-91-02 15:03:79346Dxkxnmef PypvtufCEBJQGMCF8730-58-60 15:03:004.7[facility] LegpgyvRNZLTPJJG3842-94-67 15:03:0028[facility] FUHHTTHCZ3155-70-88 15:03:0032[facility] UxggkgbQFCMHTYGF8518-89-81 15:03:002.0 [facility] CnmpkppYYJULMAWG4804-54-66 15:03:002.7[facility] HermannCHEMISTRY 2013-11-20 15:03:000.7[facility] FinikebJCPBNLESA8159-83-63 15:03:006[facility] MrmdmxtHJTSNJOGE7858-35-11 18:19:0032.0[facility] OsnapkiUEERQWGDU8933-93-99 18:19:0031.4[facility] RnidoetAQLCMDGRJ5814-27-59 18:19:007.14[facility] RRWIHNUHW3763-08-95 18:19:000.08[facility]annBLOOD BANK JAPHUCQ5743-86-56 16:10:00Positive 5(11/17/2013 10:10:00) [facility]annBL[facility]OD BANK RESULTS 2013-11-17 15:22:00Product available 6(11/17/2013 09:22:00) [facility] RIUCCNDTA4812-71-73 18:49:004[facility] MvwqkcoCKFAKYBSJ5864-98-17 18:49:000.68 [facility] IdqqfxlCILXHCGQW9840-59-29 15:47:1712[facility] HermannHEMATOLOGY 2013-11-15 15:47:00Normal (11/15/2013 09:47:00) [facility]annHEMATOLOGY 2013-11-15 15:47:00Normal (11/15/2013 09:47:00) [facility]annCHEMISTRY 2013-11-13 10:00:002.940[facility] WfeltfpRPQWFQNPG8879-84-27 12:15:003.1[facility] NqndzcvZYAFFUDJW6868-59-73 11:44:001.8[facility] GpksyxtZLTATEXVQ3882-92-16 11:44:002.8[facility] ZvoeyzgEFUIZUVDKG1943-83-74 06:50:29Negative *NA*(11/10/2013 00:50:29) [facility] JdddwegIOSQSVAWZM4419-44-52 06:50:00* Test Item Value Reference Range Interpretation Comments aPTT (test code = aPTT) 35.6 s 22.9-35.8 N [facility] TmssxozQFUNIOMAUM7977-87-24 06:50:00* Test Item Value Reference Range Interpretation Comments PROTIME (test code = PROTIME) 13.1 s 12.0-14.7 N [facility] CampusKentlgvJHVYXIGASV0260-02-51 06:50:001.00[facility] HermannCHEMISTRY 2013-09-20 16:56:002.7[facility] HermannBEDSIDE GLUCOSE EBMKVPB8038-59-44 16:54:00 99[facility] HermannBEDSIDE GLUCOSE CEUQHUA9437-92-91 11:27:58863Zuatczjd [place] EQEWNIQJM7531-76-87 11:23:64358Kauszelw KidpfkoXDWNKPXOR1587-30-37 11:23:00552 [facility] ZxqnqgwUMVLTHQUA8233-30-51 11:23:003.5[facility] HermannCHEMISTRY 2013-08-10 11:23:0013.5[facility] ZxvaxlrGHSBBUWOO4418-65-47 11:23:007.9[facility] NursgrdBOBFNLZMY9606-10-81 11:23:0029[facility] RcgeumwMGPSAGVJG2310-52-03 11:23:0011[facility] CoghdpyPITALAXTM2057-58-19 11:23:004.3[facility] SUOXLILNP7579-83-67 11:23:006[facility] CigevnyYMXQMOCOW7812-23-35 11:23:60308 [facility] VljduhkEFDWKQEUU7459-03-18 11:23:001.4[facility] HermannCHEMISTRY 2013-08-10 11:23:001.7[facility] HermannBEDSIDE GLUCOSE VTPZOBG5212-20-91 02:42:00 126[facility]annBEDSIDE GLUCOSE KPUAWVY8612-17-88 02:09:0056[facility] QNLRFPUNP1613-41-29 11:04:001.7[facility] BqzfamhGQGIHXRYK8065-74-88 11:04:001.7 [facility] DqmfehoJCWADRTHE4394-51-38 11:04:0014.2[facility] HermannCHEMISTRY 2013-08-09 11:04:007.5[facility] ElqjbfnLQLNHNLTA4420-93-38 11:04:0027[facility] IvxiljeDIXKWEBGV2501-68-54 11:04:007[facility] FzfmwrxTXOODQJLH7933-32-90 11:04:00 14[facility] FuohtvaAHVOBHXXH9148-06-63 11:04:006.2[facility] HermannCHEMISTRY 2013-08-09 11:04:42760Scrykhsu QvdnsocPGWOSMXWD4313-55-57 11:04:04446Vmnvxzln RecenetUOFKPHQUF7291-11-09 11:04:003.2[facility] ItytatrGBXFIJOYJ7116-82-19 11:04:11981Nijunjtr OuzqpxiQCHGVFBEBW7469-55-29 11:04:09083Adotorcz [place] DAHHIYOMHP7409-51-36 11:04:0016.0[facility] MkuqgahIYOUVVRLOI3530-63-24 11:04:00 7.1[facility] UrlxfxmYPDZMBVFZJ7429-89-86 11:04:005.3[facility] HermannHEMATOLOGY 2013-08-09 11:04:003.16[facility] QeidztgSKZMDPVVFG6270-48-71 11:04:009.5[facility] FwkljxgLUKZNZVGUG9654-99-92 11:04:0092.8[facility] MrvxwykEJUBLZDLVB6879-99-78 11:04:0029.3[facility] XnnukfmRXNGCUTUMN7928-33-93 11:04:0032.5[facility] OTYYAXYCZU4400-87-58 11:04:00* Test Item Value Reference Range Interpretation Comments MCH (test code = MCH) 30.1 pg 27.0-31.0 N [facility] HewhtelKOOWBRVEQB4771-46-03 11:04:001.4[facility] HermannHEMATOLOGY 2013-08-09 11:04:0061.0[facility] MfiwyfmYXVBJKLVCM9439-78-01 11:04:003.2[facility] EgbufktNHWEUJPJLA9597-02-12 11:04:000.4[facility] DtruiaoANHYBEVANH3426-62-97 11:04:003.3[facility] CbayzsxQTVFMOICMG4091-01-72 11:04:000.5[facility] MAGRUUBQKC7300-51-70 11:04:000.0[facility] UhuoifsCQEYXRQWWH6326-47-91 11:04:000.2 [facility] ImxpbcfJDQTINUTVG3134-49-73 11:04:0026.3[facility] HermannHEMATOLOGY 2013-08-09 11:04:009.1[facility] BbzlkzjLMNQOIQQA7504-34-07 19:56:009[facility] FlvxjbpIJGAISNEQ1178-11-94 19:56:0012[facility] HsjerfnHIQUPSGKL1598-64-69 19:56:005.3[facility] CqnlattYCPROIPHU6196-09-12 19:56:0028[facility] KGFFKVNWT8697-30-23 19:56:25178Qrvtlcdq HjwbgqvFZSGRAMSS6707-42-78 19:56:0015.8 [facility] GnzytyqBBZBKYEKQ9558-87-41 19:56:008.3[facility] HermannCHEMISTRY 2013-08-08 19:56:48470Ipihjomg BaryzjgMWAXMFRKX6286-66-22 19:56:30126Hylvkday XmqzopfKFERLNJZE7919-36-22 19:56:003.8[facility] HermannSTOOL JAOHW6246-22-53 01:35:00None Seen 5(08/07/2013 20:35:00) [facility] BwwiyopZWZXLHGXA1955-15-85 16:31:0072[facility] UlriyzdJPXHQVTHHC0436-65-16 09:32:09Negative *NA*(08/07/2013 04:32:09) [facility] MhzelxuMBLHTUEDA5472-86-39 09:32:003.3[facility] WNXQTLNZLM1418-72-49 09:32:001.3[facility] GiqgoewBHRQIZMINL7314-84-06 09:32:000.6 [facility] MrmoxbfIFKFCATNGV8978-12-14 09:32:000.1[facility] HermannHEMATOLOGY 2013-08-07 09:32:000.0[facility] LspntimLZYLTEOTVX4813-97-90 09:32:005.2[facility] QmktztrHIBWMFYBAL3052-97-43 09:32:001.8[facility] SoqgdhgVYPDSNPYHU4603-45-46 09:32:000.2[facility] QnpriuxBDYUHNKGCN3233-44-40 09:32:0018.1[facility] MUJTSTDJPA1118-29-36 09:32:008.1[facility] LotmjbqDCFRBZRUNG1519-73-74 09:32:00 71.8[facility] PnfmrhbJMLROMMZVU9292-01-25 09:32:006.7[facility] HermannHEMATOLOGY 2013-08-07 09:32:27685Qnumwkmt CrhskvfURYFOCINTG6163-14-22 09:32:0032.5[facility] YqvbsdpIXDGSJORCE0049-24-65 09:32:0015.8[facility] EmhkewmSGQHZEELDO6986-35-53 09:32:0093.6[facility] SpovvivUFKGMFDGVR6160-77-39 09:32:00* Test Item Value Reference Range Interpretation Comments MCH (test code = MCH) 30.4 pg 27.0-31.0 N [facility] HksyjurMJMTAUDGNM3136-91-78 09:32:0029.7[facility] HermannHEMATOLOGY 2013-08-07 09:32:003.17[facility] AetcvxkVBQZVQXIHJ8420-65-95 09:32:009.6[facility] PrgojmaYRXHUCXSPA2850-76-07 09:32:007.2[facility] WgesuprMRMCZUABV6622-29-40 10:44:0020[facility] IiblsxjBEHPMNYLK0956-74-45 10:44:001.0[facility] AXFUDTOWF7293-34-18 10:44:000.4[facility] SobhlcnDWNZPPPKN7877-41-88 10:44:52412 [facility] TzghavwDIISTJGJV6523-04-25 10:44:0033[facility] HermannCHEMISTRY 2013-08-06 10:44:006.0[facility] IfnlcjsFWZEOUYQD1257-90-68 10:44:004[facility] SwsexblWZNNYWCYB5307-11-36 10:44:003.0[facility] IsvolueBSYBPTMJB7626-65-55 10:44:003.0[facility] XhnwjqhKOQUCBETCA7470-43-78 10:44:0054.8[facility] BKECHJWRLN4818-85-79 10:44:0032.2[facility] BsmivsaWFTGQZVHCO1295-51-09 10:44:00 0.5[facility] BgijxlhJENXQLPKFW9428-92-36 10:44:0010.9[facility] HermannHEMATOLOGY 2013-08-06 10:44:001.6[facility] WjfunoiZWAIUKENOU1247-47-56 10:44:000.1[facility] NtgdsysUZMNLFCMCZ5279-91-42 10:44:001.8[facility] JlxkwhxBIQTDIYHRT8117-63-06 10:44:000.6[facility] LxiyhxjBWDPXHWABJ6527-61-34 10:44:003.0[facility] GMZGHWIOMB1426-67-93 10:44:000.0[facility] WnrpsnvXBMJZWAWRQ8181-11-31 10:44:00 32.8[facility] YggubbiESSSMLLFAB0638-33-79 10:44:00* Test Item Value Reference Range Interpretation Comments MCH (test code = MCH) 30.6 pg 27.0-31.0 N [facility] CampusKyuzjkdCWJNEDOXRU3000-19-09 10:44:0016.0[facility]annHEMATOLOGY 2013-08-06 10:44:006.8[facility] MqactqoJTPLOFJYZF7244-10-72 10:44:77164Tyefvnrf MxkyblkYJTVETXJGV4642-81-81 10:44:005.5[facility] RznrwyxAGKEPEWVMR6153-53-93 10:44:0029.4[facility] HefwemrKXEJSHQMYQ7929-99-19 10:44:0093.2[facility] JJQREDRLZH4610-44-01 10:44:003.15[facility] BcjmgtjCAVMFKJWAZ1049-76-89 10:44:00 9.6[facility] GyzkypeQRRQDOMETV1357-95-23 10:44:00* Test Item Value Reference Range Interpretation Comments aPTT (test code = aPTT) 24.2 s 22.9-35.8 N [facility] CampusBpwfvdlTFTDWFDSXL8748-14-03 10:44:00* Test Item Value Reference Range Interpretation Comments PROTIME (test code = PROTIME) 14.2 s 12.0-14.7 N [facility] CampusQrvlurmOEJFFJJTCI9957-89-70 10:44:001.11[facility] HermannINFECTIOUS ELWFINLT9432-00-28 02:00:00Negative 1(08/05/2013 21:00:00) [facility] [place] STOOL ZTFKX7334-71-73 02:00:00Negative (08/05/2013 21:00:00) [facility] [place] CWHVBCYTK9580-94-18 12:50:003[facility] VgzrtjcYDIUYNORJ1270-96-17 12:50:000.9 [facility] NvsbwacSXZMLKSOJ6906-79-87 12:50:003.7[facility] HermannCHEMISTRY 2013-08-05 12:50:0046[facility] IdkraovJNPCRTMNH3995-00-39 12:50:003.5[facility] UtradhkHSGQPYZWE6386-98-65 12:50:007.2[facility] WqfuqooLNYARVADY2029-02-79 12:50:21769Btujcopp YxvsebgJHLLHKOFU6402-16-51 12:50:000.5[facility] ZXLRJXPGJ6221-01-99 12:50:0031[facility] NqxgydmXCIMGWCVR6253-88-31 12:50:001.8 [facility] SgmanmnHMQLZNZCS5739-36-31 12:50:00Negative *NA*(08/05/2013 07:50:00) [facility] YauabujMDJTDJNHON7913-15-34 12:50:001.00[facility] HermannHEMATOLOGY 2013-08-05 12:50:00* Test Item Value Reference Range Interpretation Comments aPTT (test code = aPTT) 31.6 s 22.9-35.8 N [facility] BfvjhumXXSLALPSOC3815-64-85 12:50:00* Test Item Value Reference Range Interpretation Comments PROTIME (test code = PROTIME) 13.1 s 12.0-14.7 N [facility] FdvnplgWCAPFGLSJ0240-44-81 20:40:35632Oczxkdcs HermannCHEMISTRY 2013-08-03 20:40:003.4[facility] JvrvfhaUGLWCCYWS6504-39-02 20:40:89462Ckezpdpm LclchpbJMRVXOCIP3235-93-25 20:40:009[facility] KmbxyezQJYDJDGUB5570-69-43 20:40:00 159[facility] OnzbsodKIFIFOLKS9464-37-20 20:40:0039[facility] HermannCHEMISTRY 2013-08-03 20:40:008.9[facility] NhegqumIDJVWBAIZ7671-84-72 20:40:003.6[facility] ZvasvagVRBRGXCYB7660-69-97 20:40:007.6[facility] IbdxmkyAWGZBSMHA7648-33-18 20:40:000.5[facility] PmxzsndBZZFJWVLE7658-96-60 20:40:002[facility] [place] YMAUZBEQV2410-22-83 20:40:0013.4[facility] QnumpmzFLCDRAEKU7080-40-62 20:40:0028 [facility] NwrzgvrAWCRZPQAV6480-48-14 20:40:004.0[facility] HermannCHEMISTRY 2013-08-03 20:40:000.9[facility] BqzyiuvUJZKNTJBO4321-64-76 20:40:005.4[facility] PbbtroiUKRNQWLIL6119-07-67 20:40:0012[facility] SyqczlbXCQHOKOWB7800-05-71 20:40:0028[facility] UoivzmrQUASXAXQO7783-75-08 20:40:0057[facility] DGROSMYNN5986-05-03 20:40:56926Lfjxhqyd BzfegpaSKQLUESZN9248-99-98 20:40:0031 [facility] MwfpruxBCGNADGEE7945-76-01 20:40:00<0.02[facility] HermannCHEMISTRY 2013-08-03 20:40:000.6[facility] IpgatisOZZGDTEPJ9731-40-56 20:40:001.9[facility] EhwzbdaCNGOPQMQQM9109-52-10 20:40:0011.5[facility] LonwctrZHZQULUNDZ8110-32-48 20:40:003.82[facility] RsdhmfrFDIHEQAQOA4539-18-47 20:40:007.3[facility] CGEMXTTDPR2562-29-26 20:40:006.7[facility] GqnamntMAWMNFYFVY0585-68-69 20:40:79057 [facility] DtpiylsLZMWIKYRQR0194-16-25 20:40:0093.8[facility] HermannHEMATOLOGY 2013-08-03 20:40:0035.8[facility] UdtuolfMZQDAYHXVW5359-41-14 20:40:0015.7[facility] TyritoqRHIPVAQUOU2748-47-36 20:40:0032.2[facility] JbgdtymGUACXVHYBW5346-48-91 20:40:00* Test Item Value Reference Range Interpretation Comments MCH (test code = MCH) 30.2 pg 27.0-31.0 N [facility] SfyveqqRIIYCDZEMV7261-55-74 20:40:009.3[facility] HermannHEMATOLOGY 2013-08-03 20:40:000.5[facility] KgsubbvVUUWREXPXW4314-76-99 20:40:000.4[facility] NqkjogyWOHGYEWEIP8262-47-01 20:40:0072.4[facility] IyiuhysXNVTZENDEX2366-43-30 20:40:0017.4[facility] AqcnzsnJTDDRURVEU4391-46-84 20:40:000.7[facility] ACDVCFCBBU7324-39-72 20:40:000.0[facility] KkqiyahWZPXEHNFAD2206-74-31 20:40:000.0 [facility] YiasnrzXEOJPCFUXM8817-67-52 20:40:005.3[facility] HermannHEMATOLOGY 2013-08-03 20:40:001.3[facility] HermannBEDSIDE GLUCOSE TSXDYOE5751-94-01 15:57:00 186[facility] HermannBEDSIDE GLUCOSE XLBMPRQ1091-41-90 10:38:0093[facility] BEDSIDE GLUCOSE BDCGIUN1442-63-42 01:34:02037Bdywgpgg TvyadrcBPUVBASCP2301-19-36 11:21:007[facility] TewiurxCCCSXZALC2334-97-61 11:21:007.7[facility] XFOZSFAWW3401-44-22 11:21:0059[facility] OdygrhtSDYTYOLQP3871-99-94 11:21:006.1 [facility] RcxknuwWZAVOZFWE9474-65-14 11:21:0014[facility] HermannCHEMISTRY 2013-07-28 11:21:0014.7[facility] BhrgykxTLQZSBCBY8349-03-58 11:21:0028[facility] DkofvdgKMCVCMOYD7457-24-42 11:21:32318Ydnzxiec ZmjrcxbWOOYESVUD3416-19-54 11:21:003.7[facility] HezjglkBISVDCNNM2185-19-20 11:21:25832Oikzfxny [place] JSTFTGXGM2581-91-29 11:21:98946Bmpuakbi EwoqtdaSUUTAFXPE9445-79-31 11:21:0055 [facility] WzbehmlKREEBIGWE0182-52-39 11:21:86411Lldzjgqf HermannCHEMISTRY 2013-07-28 11:21:55730Btkbzekw SmrdxswTWNABIYBO5432-47-81 11:21:0040[facility] GnlxtiaXPLHAVWAH1164-59-63 11:21:003.80[facility] CodqcmyHOVANXFEAS5652-26-21 11:21:006.9[facility] DviogyyDGUKPLLKFP3126-57-00 11:21:21834Nriuehem [place] OJZGLDTZPC2685-03-24 11:21:0015.2[facility] JgfgfviNGMODTHYBH1135-25-97 11:21:00 32.4[facility] WkfqgljZMPBFAFCNF2782-26-56 11:21:00* Test Item Value Reference Range Interpretation Comments MCH (test code = MCH) 30.3 pg 27.0-31.0 N [facility] DpuijykYMGMQEBDKG8181-06-59 11:21:0093.7[facility] HermannHEMATOLOGY 2013-07-28 11:21:009.4[facility] JyonnemSGSYEDLPGS6190-06-45 11:21:0029.0[facility] VezmsvoNKBKUCLRIG9618-78-14 11:21:003.09[facility] BpinddbCPETUITFSH9173-95-11 11:21:006.0[facility] MkowbbyOZSWLYPKLE7682-94-24 11:21:000.3[facility] ZYQBEBEDDZ0084-52-85 11:21:000.0[facility] KsegzxtUXEPCTBHYB2677-99-09 11:21:000.6 [facility] YqupyaoLCBKYWNHHQ0492-71-66 11:21:0034.3[facility] HermannHEMATOLOGY 2013-07-28 11:21:009.5[facility] DbzcuucSAABLJPDOZ7228-68-20 11:21:002.0[facility] CnjyfqlCCVWQQERAB0610-23-79 11:21:000.5[facility] NocjngvRZBFJNPLHG3677-62-57 11:21:003.0[facility] UzuybhiQXHNKJKHUR5829-10-24 11:21:005.0[facility] GCHYDUHMHE9178-49-55 11:21:0050.7[facility] FwfzefsZKCXXFRUU8908-89-89 12:36:34772 [facility] XmofczlNJHUNFCGY9308-89-10 12:36:78102Cdarxvjq HermannCHEMISTRY 2013-07-27 12:36:003.6[facility] ThviehhQNYUVEXYP9617-66-68 12:36:50108Pgyfwbms AexylogPLYXYPZFQ2929-12-99 12:36:0011[facility] EsehinhYFFDWLAPW9576-76-87 12:36:004.3[facility] MdflgpqQBZACBNWJ5137-37-19 12:36:008.0[facility] TILMQJGZZ4609-38-00 12:36:0028[facility] MnoscesCLATYUMBF5476-25-38 12:36:0014.6 [facility] RxmmivdBMAQLSMQG8645-29-54 12:36:0069[facility] HermannCHEMISTRY 2013-07-27 12:36:009[facility] HermannINFECTIOUS DXTKXJNG0860-04-62 22:28:33 Negative 1(07/26/2013 17:28:33) [facility] UzrfntoYJKMZVVKJ1402-51-46 10:21:007.0 [facility] WjjtfdrHCKVYZAQE3829-20-85 10:21:007[facility] RgbhfsvBUUCZBSXG0056-83-43 10:21:0017.2[facility] AxstqrkRYWFMREYT0609-66-81 10:21:0023[facility] BMIKTJBIW0377-66-81 10:21:42230Eknqlhap PalizzvAEVGDHKLF1631-66-65 10:21:003.2 [facility] PeveqnzXDAAHQODW0420-30-50 10:21:48790Oninhpce HermannCHEMISTRY 2013-07-26 10:21:006.0[facility] TqvtnusVCECPGVTF4440-34-38 10:21:0019[facility] XomecpuRZXCONORQ2689-01-84 10:21:88178Fkyczbwt ZkftpxgLWDGHBRESB7998-86-59 10:21:008.9[facility] SkfbzcfPLFYTCZTKA9565-89-53 10:21:0091.7[facility] FQAPAPCNFU8950-99-55 10:21:0027.5[facility] RhobdlyJUPHOVXRYH4745-36-97 10:21:00 32.2[facility] NhvgfmwXSZHNZYGJG4526-63-60 10:21:00* Test Item Value Reference Range Interpretation Comments MCH (test code = MCH) 29.5 pg 27.0-31.0 N [facility] LtbgivcTGCMKHXFXO4232-96-54 10:21:0015.0[facility] HermannHEMATOLOGY 2013-07-26 10:21:006.7[facility] MlhggksJGLHMHPBHA9736-31-82 10:21:53391Eglpvpjy DsuhgkdULQFQRTAHG3322-00-52 10:21:003.00[facility] DhtnqfhSUDOQZCNDQ3100-65-45 10:21:005.5[facility] VjoykacHFRDANLRPT6154-28-82 10:21:0058.9[facility] ZMTPTIISCN6508-22-43 10:21:000.0[facility] YzmvtohKUYXYTDWBY9726-06-80 10:21:000.2 [facility] JnqrecyBZNSYWWOHW1165-25-44 10:21:000.6[facility] HermannHEMATOLOGY 2013-07-26 10:21:0026.7[facility] VfowyuaJDEOXJSIIP1656-24-79 10:21:0010.2[facility] HihzmfaGVHTDFQBSY7105-44-60 10:21:003.8[facility] MohhifxGDUOEVOAFX6241-23-48 10:21:003.3[facility] AchmnmwADMHVCIIES7437-21-37 10:21:000.4[facility] CPTKQWNQNZ4308-44-51 10:21:001.5[facility] WqdwbmcMEZPQQKGI1523-56-35 10:35:35591 [facility] FdxmnerETWLFMKFY8650-49-31 10:35:006.12[facility] HermannCHEMISTRY 2013-07-25 10:35:0032[facility] VnbgyrkQLPRCLODM4734-29-29 10:35:86700Pgxiskao AnyyvzpRGZRDJIZQ2997-93-64 10:35:60718Jpxoopcu DzhsrdlAGQYPAXIT8580-73-61 10:35:0083[facility] YrrbhzdPAKVMGABB9127-07-84 10:35:002[facility] HermannCHEMISTRY 2013-07-25 10:35:006.9[facility] GixviupMKUZORUQT4139-46-68 10:35:38015Qrqehvbm WocstwgNPOFIRVHT1070-84-77 10:35:003.3[facility] VtasyrkGMNGQKAAD3518-16-37 10:35:000.6[facility] AionpigQSUQPUDXE5616-42-44 10:35:0047[facility] WYSLHSFHZ5901-04-94 10:35:003.6[facility] NyuhzblJYUTSFYPY1187-20-75 10:35:000.9 [facility] SanqibmITEMVFNVQR1997-06-92 10:35:000.0[facility] HermannHEMATOLOGY 2013-07-25 10:35:000.2[facility] UrbznczYSNWJLJDGC2688-70-88 10:35:000.8[facility] TwghcqiBXNMJHFPWQ8220-14-87 10:35:001.4[facility] TnvgzhlWDETGXVWVK1078-33-04 10:35:004.0[facility] TilcqpfGOKVUYWPGF9806-91-44 10:35:000.2[facility] CHPUAFFMVB2778-57-66 10:35:0012.5[facility] ZfiermuNSSUBJJKUN0067-02-17 10:35:00 21.2[facility] UlaignzUZOEGOQRHA3647-25-96 10:35:0062.8[facility] HermannHEMATOLOGY 2013-07-25 10:35:003.3[facility] PbnlpjeQAYGGVWRMC0987-48-96 10:35:0015.4[facility] AibgcybNECGDCINRV2314-99-89 10:35:57745Qazuiuim UeqdbsmOKLHNCQZAR9791-87-20 10:35:0092.2[facility] SlgeizbZZRSJSWDIE3842-28-47 10:35:0032.4[facility] QGDFVDGPMW6150-25-36 10:35:00* Test Item Value Reference Range Interpretation Comments MCH (test code = MCH) 29.8 pg 27.0-31.0 N [facility] MqxsyonICXILDTTCM7252-83-26 10:35:006.4[facility] HermannHEMATOLOGY 2013-07-25 10:35:0028.8[facility] ChzlvexTZDCQBNDIG6619-16-66 10:35:009.3[facility] MlzmsybDYAKIBOPKY7306-71-42 10:35:003.13[facility] LdeeewuIJLAYAVYPT1985-75-88 10:35:006.8[facility] GqjptoaEMMKTDTJE9129-05-56 11:45:00<2.1[facility] OFATXJRGQ9176-89-84 11:45:000.4[facility] IgxvhjwRQAQBPVIA9616-73-70 11:45:0041 [facility] OftilbdWMNEVBNSK2970-38-05 11:45:96591Zhgqxtag HermannCHEMISTRY 2013-07-24 11:45:49074Qxrvxjzm WtytbbkLNGWUDOLS3775-20-50 11:45:003.4[facility] VajfdhbLASWGVOBR2179-34-18 11:45:007.9[facility] MoarcsfETHIEMFSQ2839-21-47 11:45:000.8[facility] ZkoipfkAAGMDBNMV7908-62-49 11:45:004[facility] QZHKWHRQX8099-03-67 11:45:004.5[facility] TbqvzalPOJKWTFYK1194-18-64 11:45:01305 [facility] XepmmlyCAYZUXIND2447-89-84 11:45:00<0.02[facility] HermannCHEMISTRY 2013-07-24 11:45:00<0.5[facility] LrzqbeuDYMKSHMAH1937-32-83 11:45:0024[facility] LjbocueOZUNLULFAF2585-89-44 11:45:00Normal (07/24/2013 06:45:00) [facility] NlqwwxfADHRUZYLIE6735-56-20 11:45:00Normal (07/24/2013 06:45:00) [facility] CiilfjhMRGJFPODFF1251-95-45 11:45:00Negative *NA*(07/24/2013 06:45:00) [facility] UmvntwuEEDWHJQHR9469-73-05 13:48:002.2[facility] RsziaqfEJIXNIRFG7055-80-49 13:48:007.3[facility] ZjewgkqIVVGEINQO0749-62-12 13:48:0022.7[facility] JVQMPNBNU7402-23-73 13:48:004[facility] QargzjoMKQJSNJSH2979-97-18 13:48:0020 [facility] PbsifewGXXZHXNXE3918-68-74 13:48:008.2[facility] HermannCHEMISTRY 2013-07-03 13:48:004.7[facility] WdngkvqWCNZJOLTA6609-00-94 13:48:0098[facility] OmtunkyLJQAHJDQX1828-19-64 13:48:69512Uioumoay VzqylcuHUDXSZWEJ2005-17-37 13:48:0065[facility] XsjjsbiAFKUHNMFU9144-01-38 13:48:0010.3[facility] CLJKGDIZK5310-68-73 13:48:67967Piebvtpe VrrjqxnBSSRYTUVVJ4523-97-25 13:48:007.3 [facility] ZfnfnrbBLBYATLWSM5099-49-05 13:48:05933Zgbcuedf HermannHEMATOLOGY 2013-07-03 13:48:00* Test Item Value Reference Range Interpretation Comments MCH (test code = MCH) 30.2 pg 27.0-31.0 N [facility] HzkbhwgTWAHUTNBJO2438-68-86 13:48:0032.5[facility] HermannHEMATOLOGY 2013-07-03 13:48:0093.1[facility] BnkxorsYQRTHQFTHG1431-73-21 13:48:0015.0[facility] PqbokkqRYZITBAZTR9607-71-22 13:48:0033.2[facility] KcmbzclVKYGOXGUOF1594-11-26 13:48:008.7[facility] CnzhvwcWODRSQGLEE0994-41-20 13:48:0010.8[facility] SNHQTRTSBU7220-92-97 13:48:003.56[facility] InsnzuhESNEEVESJJ2488-80-92 13:48:00 1.4[facility] RymytfrOWWKSBPVSF6847-49-53 13:48:000.7[facility] HermannHEMATOLOGY 2013-07-03 13:48:006.4[facility] HialqjwZIWMIYXNYE8651-80-85 13:48:000.4[facility] IyeiojyLWWWZQJUQO4096-39-30 13:48:000.2[facility] OyvvwvmBWRTNDXCAF7496-46-75 13:48:002.1[facility] XlqgavgFODDYIQPNV8409-48-73 13:48:008.1[facility] BUMXVBSXMS9738-83-51 13:48:0015.9[facility] MxjkhivAXLBWFZKWS4453-83-22 13:48:00 73.5[facility]annBEDSIDE GLUCOSE ROAGVHP6867-28-30 02:29:09816Pqfjdzys HermannBEDSIDE GLUCOSE EYUTJAG7409-32-30 21:54:46860Aleidojo HermannBEDSIDE GLUCOSE RUNEIGW3213-51-08 17:29:41434Wmvtglla PrrqfuyVEHBQMXFG6125-27-97 12:12:007.3[facility] QiztvpuRMFPNLPRU8843-42-05 12:12:0024.5[facility] FYYLZHEPK6655-73-10 12:12:005[facility] JzwayuaVIOAKGDKU8182-92-03 12:12:0021 [facility] EmcxzgqWICFFYYOS0325-81-26 12:12:0095[facility]annCHEMISTRY 2013-06-30 12:12:004.5[facility] MjorufsANAZBKGTC4402-79-05 12:12:43442Fgjldxoj KihuzjvHMWSFCBFB6888-18-50 12:12:28521Cpdswwam OokrpemFGEVTRAAI0484-54-33 12:12:008.0[facility] TabzvsfVAESPYURX5155-30-44 12:12:0043[facility] YJRVHWRAJ2567-60-08 12:12:008.9[facility] IhxxariGBGADYSEZ9028-35-06 12:12:002.2 [facility] EhqwzlsQFCSFASXJC1950-12-28 12:12:009.4[facility] HermannHEMATOLOGY 2013-06-30 12:12:0016.7[facility] FfjyzyfLFISFSNXVL3951-99-76 12:12:005.7[facility] PdussbqZPIABQOUCY8857-81-88 12:12:001.4[facility] DkingvaMWXLAUICMP8008-52-90 12:12:0069.4[facility] CxhnkuhIFQESGVKQQ7147-97-82 12:12:004.1[facility] SSKIYXPLNF3121-41-29 12:12:000.4[facility] IanyvtbQPHQWNWUZD6879-79-97 12:12:000.3 [facility] DftppjxUYTNGYUINC7098-83-37 12:12:000.8[facility]annHEMATOLOGY 2013-06-30 12:12:007.5[facility] UuqfqljREPQMGUFUC0753-52-41 12:12:0015.8[facility] LygsefqOJJYXSPUKH6350-09-54 12:12:0032.5[facility] HhlpiwmRTRDRTAONU6569-53-37 12:12:0032.2[facility] YmnczlqSYWSBFVVHL2427-02-45 12:12:0093.0[facility] NAMBLREKLZ1171-49-23 12:12:003.46[facility] TjvxamrZAXIMYSAWW4348-95-69 12:12:00* Test Item Value Reference Range Interpretation Comments MCH (test code = MCH) 30.2 pg 27.0-31.0 N [facility] StikxjaFOMAMPTPGN8153-33-24 12:12:0010.5[facility]annHEMATOLOGY 2013-06-30 12:12:85333Miendjfl KvpbjefGDBONOZGAX7681-74-70 12:12:008.3[facility] VwbpjynWGDGPMZBK2082-42-71 02:00:009[facility] BdgftlrPVUVAEDVA0598-79-04 02:00:00 96[facility] SwdpcirOLSLRZRTL0537-22-32 02:00:0024[facility]annCHEMISTRY 2013-06-29 02:00:004.5[facility] ZblnalnJXXLAXYTQ4268-91-52 02:00:10122Ddvqtbhb IiljlsuXCIIHRZMB9806-63-58 02:00:0017[facility] IbshlooVVJKPKNTH5304-51-12 02:00:005.0[facility] NkmtoovWQKZLUTHB2175-00-92 02:00:14581Srshsoqb [place] CMNRQCOUS4743-78-90 02:00:008.6[facility] WfehikbUIMLOVDGT5724-06-68 02:00:0018.5 [facility] MdbebtxVHUYQXINCF2507-95-67 02:00:003.43[facility]annHEMATOLOGY 2013-06-29 02:00:007.3[facility] QmfeweeKSQGVVKWDI4140-45-99 02:00:007.5[facility] LdbvrxeTPOONLBUNW4911-59-37 02:00:0093.7[facility] OqktbixQLGHUOVTBB2932-39-03 02:00:0015.6[facility] RavyftsUIYLWGSUQG9872-50-52 02:00:14200[place] ENXJCOCAMR8438-02-91 02:00:0033.5[facility] QtbtjeyOYGCNGVHYK6656-90-09 02:00:00* Test Item Value Reference Range Interpretation Comments MCH (test code = MCH) 31.4 pg 27.0-31.0 H [facility] WbaqywbSJXPFBRPHI1111-97-86 02:00:0010.8[facility] HermannHEMATOLOGY 2013-06-29 02:00:0032.1[facility] EpupwmmDHRAXQEYUP7311-15-28 02:00:0012.7[facility] HsmlqpiECACGLYQOD5316-68-76 02:00:0075.7[facility] QdagzjnXCWQICVTCL8278-65-57 02:00:000.5[facility] HhltijnKJUIRALFLE9263-02-78 02:00:000.3[facility] MCZMLHJAJQ6532-68-96 02:00:000.9[facility] GmmzdffWHGNQQJVDU9640-86-74 02:00:004.5 [facility] KopnocyNWFEFZSQWR3513-48-45 02:00:005.6[facility] HermannHEMATOLOGY 2013-06-29 02:00:000.3[facility] PgwdjmtCWTNITFOHW1855-15-25 02:00:006.8[facility] UeebfueFCXRFEVFWV4811-79-30 02:00:00* Test Item Value Reference Range Interpretation Comments PTT (test code = PTT) 66.6 s 22.9-35.8 H [facility] LjqearvNVQKWVBOEJ1363-49-42 02:00:00* Test Item Value Reference Range Interpretation Comments PT (test code = PT) 13.8 s 12.0-14.7 N [facility] MxokwvrEHNXXUMLDB1073-88-90 02:00:001.07[facility] HermannCHEMISTRY 2013-06-28 16:27:006.3[facility] WweqkekTMVFOXCWN4731-57-81 16:27:002.0[facility] YysvihoFDUNLCWVEE4361-21-86 13:14:00Negative *NA*(06/23/2013 08:14:00) [facility] IhvuphrJIIDEETGKK6133-57-59 13:14:00Negative *NA*(06/23/2013 08:14:00) [facility] IiitzjkFEXBQAEXQV3760-19-10 13:14:00<3.1[facility] TcqdicjFVQFNKVYJY8295-17-07 13:14:00Negative *NA*(06/23/2013 08:14:00) [facility] AdsysruVLHXCQPFGL2870-78-59 13:14:00Negative *NA*(06/23/2013 08:14:00) [facility] SljvgdzNQTWXNNPVN3754-49-55 06:54:001+ *ABN*(06/23/2013 01:54:00) [facility] GisrqpfJIXFJXFBWE9907-85-33 06:54:00Normal (06/23/2013 01:54:00) [facility] AkigqejKUUVDNILN1299-57-12 12:50:005.7[facility]BL[facility] XVFAXCT7710-27-34 12:45:00Negative (06/22/2013 07:45:00) [facility] BqvupodQRCJZYOKY5033-65-93 18:45:0044[facility] WqsgygwBLCKVYOBZ4173-94-93 18:45:007.9[facility] FgjwfusHNIBVOAVX2640-50-89 18:45:000.3[facility] VxepemoUAZNFCMHG5461-03-64 18:45:003.7[facility] ZKOWMZAXE8130-51-68 18:45:10770Ocevbdes UciyqcpIZZHDPTHJ1541-76-33 18:45:0057 [facility] RryqvvsVMZZKDXTA9700-34-03 18:45:004.2[facility] HermannCHEMISTRY 2013-06-13 18:45:009[facility] TgzwgcsBTWDZOIZX5796-95-20 18:45:000.9[facility] EsgeowhIQFOPQYJZ0081-77-71 16:23:005.2[facility] HermannBEDSIDE GLUCOSE TESTING 2013-02-23 16:22:84598Uvlyaqxp ZeqdyyyLCGABHAJI8254-05-30 17:06:005.2[facility] XyftmkcJJBXDXIPX6621-57-50 17:06:007[facility] JrcbcwiCYVDRWACG6672-76-54 17:06:00 18.4[facility] NfpyxtoQXMUYIDRO6200-90-58 17:06:005.4[facility] HermannCHEMISTRY 2013-01-12 17:06:000.7[facility] ZiqdiutRWVBCDHMK8933-67-17 17:06:007[facility] JdzyagaCGQBTSWKA0164-32-72 17:06:0047[facility] IvhsvquLTCIIAFJF1339-74-86 17:06:008.7[facility] JchepdlYCRTOMSFL4924-37-62 17:06:0025[facility] FZVZXAONQ1055-01-07 17:06:004.4[facility] LxpwtvzHMVGGBABI3535-91-97 17:06:0093 [facility] KlezrouJXTZJRVZB7422-08-54 17:06:33261Vaebpcjc HermannCHEMISTRY 2013-01-12 17:06:006.4[facility] UhiwykiSIVQLYCPB7795-28-99 17:06:003.6[facility] NyggqgcETVDPBMWY2921-11-08 17:06:51328Gncfkuzd EzabnqmIIQWKQALL4390-63-10 17:06:0041[facility] AkkpwisCIQPAGBFL8201-56-53 17:06:0069[facility] JWTQXVWNW0597-13-57 17:06:009.0[facility] AvvcgvuZLEZAHHGV2648-11-28 17:06:000.5 [facility] EaosopaFPNELIXGR6349-89-39 17:06:92838Jwbeeemd HermannCHEMISTRY 2013-01-12 17:06:004[facility] MbvjehuDQZSKEYWU7148-45-55 17:06:002.3[facility] StarbhuWUAVEYBVT2831-03-04 17:06:00<0.02[facility] CtqqzatAAFUGREQZ3529-33-18 17:06:0040[facility] GwifnbxQIBLMSBOST8599-86-96 17:06:002.96[facility] PLUFNXMTKO2256-19-27 17:06:0095.2[facility] XhymopjCCASGKNRWU4722-45-04 17:06:00 28.2[facility] KoplgycMMQNTSNFQX7435-85-17 17:06:009.2[facility] HermannHEMATOLOGY 2013-01-12 17:06:0016.0[facility] NtcvmhcTUMOAUSPFM4451-37-14 17:06:0032.8[facility] EnvqiisVFXLUILRFJ0325-58-05 17:06:007.3[facility] CpfigpaALPZIIWEGU4157-82-16 17:06:56000Tafrsdld UmkjcbeKUWAUOZVTB6875-03-60 17:06:0010.7[facility] TYXBAQZPMM6428-36-62 17:06:00* Test Item Value Reference Range Interpretation Comments MCH (test code = MCH) 31.2 pg 27.0-31.0 H [facility] PglkumcCXZHSDXNCE4446-05-22 17:06:001.06[facility] HermannHEMATOLOGY 2013-01-12 17:06:00* Test Item Value Reference Range Interpretation Comments PTT (test code = PTT) 56.1 s 22.9-35.8 H [facility] FrvxocwAMIICBOLFU5882-75-41 17:06:00* Test Item Value Reference Range Interpretation Comments PT (test code = PT) 14.0 s 12.0-14.7 N [facility] SgnzmxwNGEKXAMQMA2138-34-64 17:06:001.0[facility] HermannHEMATOLOGY 2013-01-12 17:06:0078.5[facility] TlospvlWKCCHIXFST9598-71-69 17:06:008.4[facility] AotfyzxSDTBERXWOU9559-64-54 17:06:001.2[facility] MrqnwzwGEQZGHRBAK8350-23-05 17:06:000.2[facility] HsffbidJNMWARMYVX3145-58-64 17:06:000.1[facility] FSCYMBMRVZ6679-11-23 17:06:000.8[facility] KdhptewBKSXGSXXKV3463-29-48 17:06:009.2 [facility] SezokpeOPBQIXIUNJ3749-71-75 17:06:0011.3[facility] HermannHEMATOLOGY 2013-01-12 17:06:000.0[facility] HsaitabVYGSFTTFW2377-83-45 19:40:008.9[facility] ArjmcwdKEAUTUELU2606-85-88 19:40:0055[facility] VknrtkrZNSYNOIKE2485-98-67 19:40:98966Cqinskto EacarzsRLUXTDOSF6219-93-92 19:40:0033[facility] WHAYUPHHW3983-82-67 19:40:000.3[facility] MqbnfxmCERMDGCWC6141-50-50 19:40:0014 [facility] MavabajATDXJYJRC4853-45-51 19:40:0031[facility] HermannCHEMISTRY 2013-01-06 19:40:0031[facility] VioisibZYAPBEHVC3670-30-91 19:40:003.5[facility] HhsdvxqHJAOXQFQQ3617-42-10 19:40:02876Ykxsscmd AtzlaaoGSPXNLIZT7328-49-88 19:40:004.7[facility] VeikiwgWRIGRUTUB1237-15-16 19:40:0092[facility] UAAXTMYPK8698-44-18 19:40:004.0[facility] PjfbhweTPZAXKOHV9160-97-39 19:40:009.5 [facility] JypvaenSXMXGVSSL8904-49-06 19:40:88653Jxjprmwf HermannCHEMISTRY 2013-01-06 19:40:000.8[facility] FmfpvutCZHMPRDAL2824-01-48 19:40:004.9[facility] NbtyhohKMGKNWPNB6489-23-42 19:40:0015.7[facility] YlsvlssTKHBMJNGT7693-31-33 19:40:009[facility] RpgumojQKJPJTJJQG5025-30-89 19:40:000.0[facility] MXDIXQYUAJ3545-10-19 19:40:00Normal (01/06/2013 14:40:00) [facility] JWKBUJLVPY3487-96-14 19:40:009.8[facility] ImlumshWYLULNVXUN9626-78-20 19:40:00 83.6[facility] YcwzhixSQODTUPBUC9817-22-55 19:40:005.4[facility] HermannHEMATOLOGY 2013-01-06 19:40:000.9[facility] JeynhyuOJDTRVSXAL4244-01-37 19:40:00Normal (01/06/2013 14:40:00) [facility] QvznpghVROHPXGFLE7236-85-99 19:40:001.4[facility] JknjbemESYBZILBMA2860-55-45 19:40:000.8[facility] JvilotgHDCXSGJFQV5858-12-91 19:40:000.1[facility] LsvwcfpEORIKXTKUU9280-67-05 19:40:0011.9[facility] VGTLIQBSYH5327-34-92 19:40:000.3[facility] WmuacshHOUWXWAAJR4716-54-23 19:40:00 30.6[facility] JzbmdnzUVRPQNJJLD0072-58-97 19:40:0014.2[facility] HermannHEMATOLOGY 2013-01-06 19:40:0010.1[facility] CvzffteKXWLXGQRZM1408-21-46 19:40:003.19[facility] UqqxhrfBGRQMZGHFD9893-06-84 19:40:00* Test Item Value Reference Range Interpretation Comments MCH (test code = MCH) 31.8 pg 27.0-31.0 H [facility] YaoiobeUBKJNPASXQ0264-32-27 19:40:0096.0[facility] HermannHEMATOLOGY 2013-01-06 19:40:0033.1[facility] NjcpwbmNJZHFGWSBQ5337-62-25 19:40:0015.7[facility] XwfvissYRCOAUXKQG3148-15-34 19:40:45467Ssfdtzvx HfzafxwURONPZMTPS3575-93-47 19:40:006.6[facility] HermannBEDSIDE GLUCOSE CNKBOCO6810-54-78 22:06:69442Eqfmfcjz HermannBEDSIDE GLUCOSE WOSKUMS5941-50-15 18:18:74449Lgqfefpw HermannBEDSIDE GLUCOSE ULLMNXT8190-47-25 12:20:76294Ummgiiuy XqiwvykRRONXACXK9084-72-62 10:19:004.9[facility] MjncjttFLGQUJQWZ9789-27-59 10:19:008[facility] CSUNJQRPG4565-98-12 10:19:004.7[facility] ZlxrbzaIKVQJDUBB3410-40-98 10:19:0094 [facility] RlnczubMSNXTYBBK1274-96-07 10:19:008.5[facility] HermannCHEMISTRY 2012-12-28 10:19:0030[facility] XymrvylCDJBAPMMT8325-48-80 10:19:65388Sgvoiprf DxidjqqYRAVZTZED2606-51-13 10:19:42699Yumkwfdd BwfvwpjKITUTGYLS2916-80-37 10:19:005.5[facility] HkznjtgDJNMRGWNF5975-80-79 10:19:0046[facility] YPZTSEADM6222-98-57 10:19:0017.7[facility] CjcwlmlXREFVUQHC1839-30-76 10:19:002.1 [facility] MweasxrUQBMFPBDMO5923-48-22 10:19:002.4[facility] HermannHEMATOLOGY 2012-12-28 10:19:000.3[facility] OknfvnkRGZVWUOEJU5398-84-54 10:19:004.9[facility] FfbxpdlTRISMVQAKX4273-56-03 10:19:001.1[facility] VfhjcyqNOCGPGLHOZ8496-96-44 10:19:000.5[facility] HyepokgEYMTSXUNOO8721-19-79 10:19:0073.1[facility] DLWKUTQUTK4871-39-32 10:19:0016.0[facility] ZphvfrfIVWHPJCCOS9611-91-94 10:19:00 8.2[facility] ApadvouWKIFQZJPBG9151-34-27 10:19:000.2[facility] HermannHEMATOLOGY 2012-12-28 10:19:000.0[facility] ZisyitbFBGWCIWTPZ9160-06-54 10:19:86821Gcvsmveb BgewyxpRSIJDNIQOJ6877-79-89 10:19:007.2[facility] VebuzkrYZPFRJAOBY4647-73-26 10:19:0016.1[facility] QnbxmykZGINFFCNQF9066-43-07 10:19:0029.1[facility] WXGLWLZWOS5282-56-17 10:19:0095.3[facility] PeviqtwARLCXCHMMW7443-29-89 10:19:00* Test Item Value Reference Range Interpretation Comments MCH (test code = MCH) 31.6 pg 27.0-31.0 H [facility] BvdxgtoQHCIRQJFUZ0693-12-88 10:19:0033.1[facility] HermannHEMATOLOGY 2012-12-28 10:19:003.05[facility] WnnjuepBKODRSYFAQ1580-53-52 10:19:009.6[facility] BdkhtohAONMYSULNN8529-94-26 10:19:006.7[facility] HermannBLOOD BANK RESULTS 2012-12-27 17:16:00Negative (12/27/2012 11:16:00) [facility]annCHEMISTRY 2012-12-27 17:16:74971Nhfdebcw JtkhkcyKSKPJVSBY5246-66-52 17:16:96812Apytmoeq RwgvtoiPTVVSTOHI1542-14-72 17:16:0048[facility] JcqijatMBTTWPHZM1968-55-04 17:16:74599Txcqonsd TbtkdplXJESIGASX0985-14-03 17:16:0016[facility] KPTCBNUSS6948-26-09 17:16:81494Vxqhtscj HermannBLOOD BANK YCHAHOS4075-56-17 17:00:23Product available 5(12/27/2012 11:00:23) [facility]annCHEMISTRY 2012-12-27 10:19:006[facility] WnbtirsNZPYWIBFS4112-06-88 10:19:006.6[facility] GjcrfigXOPRWXRFM8097-15-60 10:19:0018.6[facility] JjxicoeLUCHVJBPV2497-63-11 10:19:007.6[facility] MhewsowLBOXERKQA2974-21-98 10:19:0087[facility] BKLGVJHQP9168-63-13 10:19:84375Pdadrknv QxolcowWYRHVSNYC3406-81-63 10:19:0031 [facility] NbegbnuNYGOBBKGU7877-38-32 10:19:0091[facility] HermannCHEMISTRY 2012-12-27 10:19:004.6[facility] ZfkfdcfUBGVFOKVN6822-19-22 10:19:62303Qntxkazh PqpkgvoMYDWSDASCF9421-43-47 10:19:000.2[facility] BrjwcdaJBWSLDNOBI7533-17-96 10:19:000.0[facility] JyuyyffFUKVPGEGYB9856-67-17 10:19:000.6[facility] AUJONZVACS2728-09-45 10:19:001.2[facility] ObfhdvkMECBQVLXNJ9799-80-80 10:19:004.0 [facility] UanvqqbTAAHMLGTPF5302-05-00 10:19:000.2[facility] HermannHEMATOLOGY 2012-12-27 10:19:002.7[facility] NsoebilUTQCJIBNSY1945-82-69 10:19:009.5[facility] TiovyyzGXDSBBWWNZ2894-60-19 10:19:0020.0[facility] FojzfweJXTUAVPGLI0122-74-03 10:19:0067.6[facility] CsdqfjcDUEMBBKLXC1667-51-04 10:19:0096.0[facility] VJVOXFUWHU7486-60-26 10:19:0033.0[facility] XfcqipiIMQYCLKYHY6866-82-49 10:19:00 7.7[facility] OkynnycBMXSHBJCVO4171-96-85 10:19:002.44[facility] HermannHEMATOLOGY 2012-12-27 10:19:005.9[facility] GadrrxjELZYSJJOVS9148-45-68 10:19:007.2[facility] WfsrhmuSFYOVFRLYQ0467-89-07 10:19:0023.4[facility] LvgayehATMJCZQLWJ7474-95-57 10:19:00* Test Item Value Reference Range Interpretation Comments MCH (test code = MCH) 31.6 pg 27.0-31.0 H [facility] MdqvxnwGNYPNVHJJX8562-56-02 10:19:64081Jtzlkpdn HermannHEMATOLOGY 2012-12-27 10:19:0016.1[facility] HermannBACTERIAL - VUPTSRMG5531-60-37 03:59:00 Negative 1(12/26/2012 21:59:00) [facility] CcircdoDNXGCGYUA1919-68-89 00:20:002.3 [facility] NfmhiqjEPPJHKJSG0762-01-18 00:20:00<0.02[facility] HermannCHEMISTRY 2012-12-27 00:20:0087[facility] JeueqjuBWNYMYGRO1886-73-57 18:32:005.9[facility] TyevbhrCRJWXGLTJ2052-29-98 18:32:11706Uyygcmta CeweoszTHUZFTLSQ2505-07-34 18:32:0093[facility] MrwksgnFNKATAINR4093-82-19 18:32:0021.9[facility] VAKMZUUZX9410-33-71 18:32:007.8[facility] WnkvmjqNILLQTZVU6067-29-30 18:32:006.4 [facility] DqxwbaeXUCTMBYAU6810-82-27 18:32:0027[facility]annCHEMISTRY 2012-12-26 18:32:0067[facility] KnerjpbVLVWGFSGF7976-61-45 18:32:33119Rbdumwce HahvtkuUVWQOXPOR2106-05-18 18:32:007[facility] DmxxortSTQFCENLQ0867-31-90 18:32:00 2.2[facility] YevazoeTVPPJMMOB9353-13-75 18:32:0067[facility] HermannCHEMISTRY 2012-12-26 18:32:00<0.02[facility] XhrsuaaILXUPNGFI1593-06-46 14:20:006.2[facility] BxeudagRMPWVIVZC4946-80-68 11:34:001.8[facility] MtxdlmkXDHAFEOBR3654-75-56 11:34:000.5[facility] AyhjdbpWMYDQXZDR0882-53-10 11:34:003.1[facility] MIFCGJYKX7005-88-05 11:34:0090[facility] OndofejWEXEEGSAA6562-33-88 11:34:00<0.02 [facility] EbmddmpQDYEFGAZOD1977-49-09 09:00:001.05[facility] HermannHEMATOLOGY 2012-12-26 09:00:00* Test Item Value Reference Range Interpretation Comments PT (test code = PT) 13.9 s 12.0-14.7 N [facility] KikpmmmRLSVSOUMVL6430-65-37 09:00:00* Test Item Value Reference Range Interpretation Comments PTT (test code = PTT) 42.5 s 22.9-35.8 H [facility] TfbfxjgDSOLOFERRY6743-10-15 09:00:00Negative *NA*(12/26/2012 03:00:00) [facility] TkycslyWEDONETLI1525-64-04 05:45:003.3[facility] HermannCHEMISTRY 2012-12-26 05:45:0013[facility] RnbzmwsPGKPJBWYO0641-54-07 05:45:007.8[facility] SzdcnaqYDXRPBVIW0098-64-70 05:45:23373Wralofbc UhjmcqkZKQWQPSGJ2996-87-13 05:45:000.3[facility] DnxpcwkBPBUVFQFJ2301-66-55 05:45:0020[facility] XZKBEJVYJ2707-46-53 05:45:0044[facility] BjvfpxzQGYUWIKCN2920-03-27 05:45:004.2 [facility] IcwnfctEBSHYZKRK1584-70-44 05:45:000.9[facility] HermannCHEMISTRY 2012-12-26 05:45:003.6[facility] UjuhzjhXYWNCEFPK0671-14-55 05:45:002.5[facility] MihsdkrQMRZXAZHMB4153-03-78 05:45:000.0[facility] UmjghadSYXDPAMTKN3531-30-71 05:45:001.0[facility] RabcelfWDJMBCLOPU5280-38-64 05:45:000.1[facility] NTRPKNPTPE6151-39-15 05:45:000.5[facility] UkumgtmSFNYVWEDJB5841-18-05 05:45:002.0 [facility] LyiablpHIODETDCOT1201-80-27 05:45:000.2[facility] HermannHEMATOLOGY 2012-12-26 05:45:006.1[facility] RkadtddOQGLGEDYVD2757-06-27 05:45:0013.6[facility] NhquakoBOYENDBPJJ8332-70-65 05:45:005.8[facility] RwhliffIWCVCRNTVK2380-63-79 05:45:0078.1[facility] TjfpnehVCZCTWZOWA9658-91-94 05:45:00* Test Item Value Reference Range Interpretation Comments MCH (test code = MCH) 31.9 pg 27.0-31.0 H [facility] KfryxrfIGIKTJTIPO6589-05-22 05:45:0033.0[facility] HermannHEMATOLOGY 2012-12-26 05:45:0016.3[facility] WuosmoyHGZMTVWRPC0743-65-28 05:45:65090Xyjnfhtj QzizryeZTKAZOUFFM7229-93-69 05:45:007.4[facility] GanbatmGXMJJVUZFE9961-80-35 05:45:007.5[facility] TrpebgeWCXDNZZJHR1108-77-85 05:45:0026.3[facility] KQPQNIYMOC7279-78-74 05:45:002.72[facility] AkrfjfiPCSYXZUDVB5159-01-69 05:45:00 8.7[facility] QzmyphoMOBGXKLMFP5733-19-91 05:45:0096.7[facility] HermannCHEMISTRY 2012-12-05 13:43:00<0.02[facility] LdveksxHJYXVPJKW8213-98-75 13:43:0076[facility] OfejaxwPQGTMDTIN5259-70-50 13:43:000.7[facility] BtvuwcbNICMWOBJH2946-95-78 13:43:0019.9[facility] RsdbcdxOCDMAWCMW7283-56-79 13:43:009[facility] ABWSZTBHS1953-63-70 13:43:004.2[facility] NbvkvhuOEUOJSOBQ7230-78-47 13:43:005 [facility] SpwmrtxNTUPIGLOQ0856-19-08 13:43:0022[facility]annCHEMISTRY 2012-12-05 13:43:008.9[facility] WsrudwmSLBMVTEND7713-55-83 13:43:008.2[facility] ZotpmogRMGFXFANL3359-81-29 13:43:007.3[facility] UallelfEGMXJZIIQ9409-98-39 13:43:74741Nwsiqfgi KbhobizHMFHUNOXX3370-97-02 13:43:000.3[facility] TPKONDPVB3153-70-57 13:43:0017[facility] FxtcwvqYNMUPSYXT9437-03-92 13:43:003.1 [facility] IbopzabYNQYYOHMN1584-69-54 13:43:0025[facility]annCHEMISTRY 2012-12-05 13:43:62760Okqvstzx IazvuonBDFNJMCYC6727-71-04 13:43:0082[facility] AwberqwDBFETCYLT3603-61-27 13:43:76639Puiqpdxp IfsabsaWENFHTQHW3645-25-87 13:43:55431Ssazjmte XhifgdvAUNOSCTFD0045-64-67 13:43:005.9[facility] GVDREGFHUD8601-19-38 13:43:000.0[facility] VcuqerkRFNQXPJCDF1602-25-29 13:43:004.7 [facility] KdqvtinBCVLVUUWXR4065-84-10 13:43:000.6[facility] HermannHEMATOLOGY 2012-12-05 13:43:000.6[facility] PorbcinLODJJLITKQ0855-23-95 13:43:0010.0[facility] JhnrbhrVZWJFFDLMR9700-38-20 13:43:008.8[facility] QjuihrhSUPWWMDLND7069-95-16 13:43:0080.6[facility] JcmknjnEIVSUHIPSI9928-77-48 13:43:000.0[facility] EESUXCHEEK3520-11-08 13:43:000.0[facility] GyjlmcmBEWICTCGTM2760-91-27 13:43:000.5 [facility] OtdesimIODBQDXTVE5418-36-40 13:43:001.00[facility] HermannHEMATOLOGY 2012-12-05 13:43:00* Test Item Value Reference Range Interpretation Comments PTT (test code = PTT) 31.5 s 22.9-35.8 N [facility] TbtvdjyMCKADBTNHK5959-21-58 13:43:00* Test Item Value Reference Range Interpretation Comments PT (test code = PT) 13.4 s 12.0-14.7 N [facility] ZwyellaGIVLGGQUHR4848-77-19 13:43:0022.1[facility] HermannHEMATOLOGY 2012-12-05 13:43:00* Test Item Value Reference Range Interpretation Comments MCH (test code = MCH) 31.7 pg 27.0-31.0 H [facility] UrfjzzgXQDJWNXNMI9527-43-01 13:43:0094.0[facility] HermannHEMATOLOGY 2012-12-05 13:43:81719Xqkurjcl EhoydwgAZXDHDOGCS8048-95-08 13:43:0016.5[facility] HjkvbraQAKHVLHZQM5846-26-99 13:43:007.2[facility] TazqzygTRUAGMTPCX7495-69-88 13:43:005.8[facility] IobqidxSVUKHOWVVD8036-45-91 13:43:002.35[facility] BNGWTQDITQ8364-17-31 13:43:007.4[facility] GntdqyfQGGKYAGNOT8449-95-14 13:43:00 33.7[facility] HermannBEDSIDE GLUCOSE OORRXTR4719-57-65 11:52:75597Dmkupbmk HermannBEDSIDE GLUCOSE MHEYBRZ1200-58-49 02:40:75401Xrjbwcse HermannBEDSIDE GLUCOSE RZRVKUD8113-73-43 00:35:51903Dbsbipnv HwkhjvqZUDHPTAIF2053-54-96 11:28:0018.6[facility] GqqlwsqTPCMJDFUM1308-14-21 11:28:009[facility] JXNLBGHEB9293-71-79 11:28:004.6[facility] SumnlmbWHYJAUTAO4334-55-01 11:28:0093 [facility] GlnqxypVJUUCCZKG1969-80-54 11:28:79528Klwcyont HermannCHEMISTRY 2012-12-01 11:28:0028[facility] DbxxrbkNGWGZLMAT0810-47-46 11:28:008.9[facility] SudvsloGERKELSWI7390-49-64 11:28:005.3[facility] BctoihjLFWBVDVOF8361-66-77 11:28:19674Wlryplbe CuzcoajPFLIWOWXR5205-57-50 11:28:0027[facility] KINCGIALO7697-06-46 11:28:00Negative *NA*(12/01/2012 05:28:00) [facility] EWDPQHPSVK1591-96-56 11:28:000.4[facility] DptyddlOFGVQHQAJY6296-02-56 11:28:000.0 [facility] EorrdjlWRFGCSEGLG0735-82-96 11:28:000.6[facility] HermannHEMATOLOGY 2012-12-01 11:28:006.2[facility] DonqtocXVYVIRNDUA3376-72-76 11:28:001.4[facility] KsbyxisGSQJJIKVQG0392-51-04 11:28:000.2[facility] ItjfvwuOYQKNCAATC7411-38-73 11:28:006.7[facility] LqukchiFLVVZJLIQS1564-40-11 11:28:004.8[facility] BPQQDOVQLG6306-28-01 11:28:0072.2[facility] MkrfimcWGDJBAYBRN6081-27-84 11:28:00 16.1[facility] QrihhbjTEXYEDVATJ7659-42-33 11:28:0016.3[facility] HermannHEMATOLOGY 2012-12-01 11:28:00* Test Item Value Reference Range Interpretation Comments MCH (test code = MCH) 31.2 pg 27.0-31.0 H [facility] ScbdnwbGEOFABVOAJ4589-20-71 11:28:0033.2[facility] HermannHEMATOLOGY 2012-12-01 11:28:0093.9[facility] GaexggkTYRRUWIHMP0565-83-69 11:28:009.4[facility] ZwikyfvPRSGISJCML7134-58-62 11:28:0028.5[facility] HyskamcWCINXPJVJD1698-87-46 11:28:003.03[facility] WilckalAXKCSGEWPB5656-78-29 11:28:48347Kpsezdmo [place] HSSOEZMNIK9399-89-59 11:28:007.3[facility] SanjhvtCIUMJJVDUA8574-21-56 11:28:008.6 [facility] UbtjlqcMTIJOQAWN6411-09-01 11:19:28164Xlmuwbds HermannCHEMISTRY 2012-11-30 11:19:0053[facility] XlniimaVVTLEQPBC2723-66-38 11:19:0031[facility] FvkfnqrDVFNVRYHU9329-15-91 11:19:0014.4[facility] JztybrvZDKFULDSE4571-22-50 11:19:007[facility] DxinvviXWRJRXCOF3162-47-21 11:19:000.4[facility] QFMPSOVXQ5569-28-26 11:19:0018[facility] HtjcyszFKKYUKGJE2068-26-32 11:19:02014 [facility] IjlmoucDAHSMZDFI7928-71-12 11:19:001.0[facility] HermannCHEMISTRY 2012-11-30 11:19:0034[facility] NpahjgbAEHBFFSUV3779-11-19 11:19:003.5[facility] OdlnlrvXYTHSGWKK3898-10-62 11:19:006.9[facility] KyrxxtsJCLOUWGVQ5711-17-25 11:19:003.4[facility] JrqtmffFVEOELZOK9039-52-50 11:19:006[facility] DLAUIYZWO2772-02-68 11:19:97388Wpubwpll BnizrgkXKAEIBAME6101-19-71 11:19:0093 [facility] HpgwponUQAVHIKLM6921-44-26 11:19:004.4[facility] HermannCHEMISTRY 2012-11-30 11:19:008.1[facility] OvhzofrKCYZGKBVJ3671-30-27 11:19:007.1[facility] XkrrgitJPISUPYCJI2796-78-65 11:19:000.4[facility] NlixumiNPBJCGMHOJ0207-85-10 11:19:000.6[facility] BrkffvyVQXGLJOHNE4133-58-54 11:19:001.4[facility] TKVPJFBIIT6736-32-65 11:19:006.7[facility] GcyxyrfQXPEGLASHB9069-81-05 11:19:00 73.1[facility] FdosamgZCSYNKMFEG6753-08-98 11:19:0015.7[facility] HermannHEMATOLOGY 2012-11-30 11:19:000.0[facility] OgvsgpiGZMTROOBIA0404-99-76 11:19:004.2[facility] WdnmsbkCNVHBCALLT5468-94-45 11:19:000.3[facility] WxvbvgqJRAGCSJDAB1771-06-62 11:19:006.7[facility] OwuabkbNLDIHBZEOE9267-73-54 11:19:38909Dspogmnp [place] EUPUQINRUZ2935-64-94 11:19:007.4[facility] JuyowvpHSSPKHZZAB8375-79-87 11:19:00 32.9[facility] LkfjmvnDTDWSCZGIL4035-06-85 11:19:0093.3[facility] HermannHEMATOLOGY 2012-11-30 11:19:0016.2[facility] TermlajRAVHOFBKHW7256-87-84 11:19:0026.6[facility] NkjxuvxXSWSNGRYGY1925-11-64 11:19:00* Test Item Value Reference Range Interpretation Comments MCH (test code = MCH) 30.7 pg 27.0-31.0 N [facility] SanueahWEIOGSOVBR4432-88-77 11:19:008.8[facility] HermannHEMATOLOGY 2012-11-30 11:19:009.2[facility] FpipskhYLPDJHUOCA3374-16-52 11:19:002.85[facility] EvwdvjyCUHCLIDKUD6779-44-18 11:19:00Negative *NA*(11/30/2012 05:19:00) [facility] WlumtayQXZIUEDKA1478-61-17 17:33:0099.6[facility] JmojpqqULSFGFFTI5843-82-87 17:33:003[facility] IklkzzkAZXJGASCW1936-75-35 17:33:00Right Br (11/29/2012 11:33:00) [facility] CawaaejGBEIBBZJK8689-90-83 17:33:0031[facility] HTARATSVQ1493-94-65 17:33:38100Erifuqiq EesncdcRMVHDYGAK9640-20-44 17:33:0010 [facility] JcdosdwYWRMZMKHA3636-50-74 17:33:0050.0[facility] HermannCHEMISTRY 2012-11-29 17:33:00Cpap (11/29/2012 11:33:00) [facility]annCHEMISTRY 2012-11-29 17:33:0037.0[facility] RlhffagVPBWICGPJ3565-87-56 17:33:0058[facility] JtcwozqBWZOBJYRB3086-78-82 17:33:007.33[facility] SapragzCCFHXLCDG2281-32-64 17:09:00<0.02[facility] CnfwsgmNARPRFMHJ6820-90-86 17:09:0079[facility] PPPWNSOSJ0952-87-71 17:09:0067[facility] MwquovqNVZPISYAQ8560-50-32 17:09:007 [facility] XztsteuNXLWKXVEW1678-03-36 17:09:006[facility] IxkjaecVWFDTKQYK8985-90-76 17:09:0015.2[facility] DchgosiYLOWPMCMQ4007-59-00 17:09:0022[facility] JOKBCGWJH1294-85-48 17:09:000.3[facility] MllwxtsSBGODFHHE3717-08-77 17:09:006.2 [facility] TmbggvbNOYZKEMHJ5840-42-98 17:09:0040[facility] HermannCHEMISTRY 2012-11-29 17:09:0036[facility] PerzlicGVGKFSBAL1895-31-94 17:09:003.6[facility] NmljngeQGFADVYLH6292-50-36 17:09:45535Grnjnaqr UwewhbbVBQOVBRDK5565-81-04 17:09:007.4[facility] MzsiwyjJDCQXNFKL8386-05-41 17:09:008.3[facility] YSWMXKFTP8693-05-94 17:09:83203Qkmlepmo NauogewTEWNAMOCF6856-28-33 17:09:0029 [facility] XviulkaIDJVCRDEQ0106-70-13 17:09:000.9[facility] HermannCHEMISTRY 2012-11-29 17:09:003.8[facility] WrhpkvmOGEDYQQFP0343-41-85 17:09:0098[facility] GjafvsrCIFBBFLQW5624-04-87 17:09:02931Zgsjhdme JxkhponUEVAEGVHK9182-08-52 17:09:005.2[facility] DlblyivGIBIHLVJD9319-37-09 17:09:000.6[facility] WYOYFWQKM2563-65-96 17:09:000.8[facility] ZancqkjRFTMMYKVAK3256-52-81 17:09:000.97 [facility] OenlqayFKBZUKPRPR0391-62-22 17:09:00* Test Item Value Reference Range Interpretation Comments PTT (test code = PTT) 35.5 s 22.9-35.8 N [facility] UvmtmhxSZXJTZYLSF5748-58-65 17:09:00* Test Item Value Reference Range Interpretation Comments PT (test code = PT) 13.1 s 12.0-14.7 N [facility] TbpwxdqUPWGGTYTKZ4506-83-54 17:09:17292Kirhzvkp HermannHEMATOLOGY 2012-11-29 17:09:007.4[facility] CfsltimLRPQKMPTOB7138-42-77 17:09:0016.1[facility] YblgosjMJVWSQBSUF0763-75-86 17:09:00* Test Item Value Reference Range Interpretation Comments MCH (test code = MCH) 31.1 pg 27.0-31.0 H [facility] YyoxbuqTUVBKQFLHY7252-10-22 17:09:0033.0[facility]annHEMATOLOGY 2012-11-29 17:09:0094.3[facility] CzxcgnqVHIXQSNYQB9896-41-34 17:09:0027.6[facility] MkxnswgTMNEMUZIMO9742-64-40 17:09:002.93[facility] SmozageCOJBOHKSIE4143-00-73 17:09:009.1[facility] RjeomdbKNXIWPQREH4854-40-18 17:09:007.0[facility] TWVVPMCSJY6899-45-59 17:09:000.6[facility] AirlfxkDXQSPVXXQJ2880-78-85 17:09:001.4 [facility] GzwwfnnGPIILCLYBT5311-14-40 17:09:004.8[facility] HermannHEMATOLOGY 2012-11-29 17:09:000.3[facility] UhjjbcoHGZETNAMEB5377-30-03 17:09:003.3[facility] MiopmziMSGGXLYVDW3032-09-54 17:09:009.1[facility] QagiclcMVYODSSOPT6440-68-45 17:09:0019.3[facility] SnlaltpGTPFREJCKM2017-36-86 17:09:0068.0[facility] WTFKBESGVH1179-43-60 17:09:000.0[facility] IuosvcmQLZUYWHWGU9183-47-62 17:09:000.2 [facility] HermannBEDSIDE GLUCOSE YBOXQSA6522-97-84 23:30:91565Wjfyhjjo [place] BEDSIDE GLUCOSE FBKKMAP4519-15-19 17:33:50862Kayrsaxa HermannBEDSIDE GLUCOSE CBIYZRT0632-66-19 12:05:09291Jgfujnqx RlznbkcDQRCTRKKU4396-79-98 11:18:003.8 [facility] ZuquzpeOICQWXRAO0752-28-29 11:18:009[facility] UiwhtxqMCGQJFHFL0322-07-19 11:18:0014.5[facility] AxktcufUZOOPLVIC7553-61-27 11:18:007.3[facility] ANFTDVOWU0231-76-30 11:18:0096[facility] UrkvykdKNLIULRIU5903-45-92 11:18:0028 [facility] XwxjgjvMEHPHNWMX9770-03-18 11:18:004.5[facility] HermannCHEMISTRY 2012-09-09 11:18:73467Wkecnrub PiytlmkAVANOBEPX3466-91-37 11:18:0045[facility] WeytzxeUASRWOOHF6284-94-84 11:18:005.4[facility] WqmrmwlJOWSBLHJE3660-04-23 11:18:0097[facility] HltxhgnSADGJJJSE0906-02-64 11:18:002.0[facility] MZYUTPFSX3819-94-20 11:02:007[facility] KogqggwIDDVZSPBD4473-80-11 11:02:006.6 [facility] QkxrdmiSHVSUEBMW0936-29-95 11:02:0091[facility] HermannCHEMISTRY 2012-09-08 11:02:14883Ubndnfdo YlsnalgTFAUXTUEL9002-82-87 11:02:0063[facility] OwlknjfFYLHOTGMM2113-74-31 11:02:004.6[facility] MtrlpdiSPBJQXZWP9453-34-44 11:02:007.4[facility] UpxzjzwTKPTBJUPL7959-90-76 11:02:0019[facility] HTGRQISJR1372-32-31 11:02:0081[facility] YiooniaHHNLKYBBQ3006-35-24 11:02:0021.6 [facility] IynvzfaWAYCVQRHPH1199-48-71 11:02:001.8[facility] HermannHEMATOLOGY 2012-09-08 11:02:000.8[facility] CcuupayTKYQSLFEYC2178-83-85 11:02:000.1[facility] PnwazowRUELMMNOXI5556-37-05 11:02:008.5[facility] BzlyxcyDVBEISSBPZ4737-43-68 11:02:000.2[facility] ClebjzhVWBXWFOCXD1035-87-60 11:02:00Normal (09/08/2012 05:02:00) [facility] JdzrkrmOPXLARQWSR6457-22-42 11:02:0015.9[facility] RBFISRUSSA5644-56-46 11:02:0074.6[facility] DrexenlTUONDUBSZV0882-62-66 11:02:00 7.3[facility] EtcnbqaGQUNKENZBH0474-67-51 11:02:002.1[facility] HermannHEMATOLOGY 2012-09-08 11:02:00Normal (09/08/2012 05:02:00) [facility]annHEMATOLOGY 2012-09-08 11:02:000.0[facility] IezkmqqUNKVKXZYXR8542-40-41 11:02:00* Test Item Value Reference Range Interpretation Comments MCH (test code = MCH) 31.2 pg 27.0-31.0 H [facility] AxajiwpIMISVTDPVQ0947-36-91 11:02:0093.2[facility] HermannHEMATOLOGY 2012-09-08 11:02:0033.5[facility] KumcikmCGHVAUGPVN5559-98-57 11:02:0026.8[facility] XgfhjniUNBYGMLGGT3115-16-60 11:02:009.0[facility] MetmrlmZNZYXXVGVM1869-97-93 11:02:002.88[facility] BzcwdgiYNVBSMXMBL2248-92-45 11:02:0011.4[facility] PBXAAJJQND1279-36-11 11:02:0014.3[facility] BzuhpbbSAWXLBUXRD7281-23-93 11:02:00 7.2[facility] VaeawflAVJNSXMFMG3463-13-00 11:02:90671Bootidpn HermannURINALYSIS 2012-09-07 19:00:00Moderate /HPF *ABN*(09/07/2012 13:00:00) [facility] IESCKBWTHI0080-19-83 19:00:005[facility] HsswdvgMBAWBLPQMW4679-37-37 19:00:00 Negative mg/dL *NA*(09/07/2012 13:00:00) [facility] VevmqsaDUWTGSARXR1600-03-40 19:00:0050 mg/dL *ABN*(09/07/2012 13:00:00) [facility]annURINALYSIS 2012-09-07 19:00:00Marked *ABN*(09/07/2012 13:00:00) [facility] HermannURINALYSIS 2012-09-07 19:00:001.015[facility] KvewjhmTZUQFZBAMD5174-79-86 19:00:005.0[facility] TtentfnRVBWZEXLHZ2855-18-69 19:00:08040 mg/dL *ABN*(09/07/2012 13:00:00) [facility] DgtmtomDLYRSGOIDR9442-42-30 19:00:00Small *ABN*(09/07/2012 13:00:00) [facility] IjyceyqOGXIFLQWMR2024-40-91 19:00:00Many /LPF *ABN*(09/07/2012 13:00:00) [facility] RgindxsOAFCQJPBYI2093-30-82 19:00:003[facility] REDBSZKBFW5135-33-16 19:00:00Few /HPF *NA*(09/07/2012 13:00:00) [facility] FheoiopEBZCYEVETV0743-06-56 19:00:004[facility] VxcisrzLZNTPFPLKQ8850-16-20 19:00:0016[facility] XanrbojAKTHKHHCZK3698-83-20 19:00:00Negative *NA*(09/07/2012 13:00:00) [facility] GydkxerDBQYMGFXNX1559-24-57 19:00:00Negative (09/07/2012 13:00:00) [facility] TtinscgSRGPEIGJEZ5289-49-49 19:00:00Negative (09/07/2012 13:00:00) [facility] AlxqvtgRWRQQJFFJ5715-65-59 09:51:002.0[facility] DBONAMDPJ4276-23-83 09:51:006.2[facility] AlqoozcZVLNKKGLB2991-77-78 09:51:0060 [facility] BvlcbbvJYGMIFODT3138-61-54 09:51:0023.2[facility] HermannCHEMISTRY 2012-09-07 09:51:0023[facility] YuqzsyjRXIXWDZGL8082-43-07 09:51:26475Uadievho DpkwtkrNQIDUHBMM6286-78-73 09:51:0064[facility] RrsrlvzTEKVMWRXV4721-42-84 09:51:007.0[facility] GkdtgdeOBTSVCWYL2223-74-41 09:51:006[facility] IACDIDIRL4922-53-10 09:51:51948Kthreaca VtkozwwELHHEHHDO4035-53-68 09:51:005.2 [facility] YexfshoPHCLIYKHO8909-87-97 09:51:0088[facility] HermannCHEMISTRY 2012-09-07 09:51:007.8[facility] QdkwnpzIBQNQIQRDI1085-08-52 09:51:000.0[facility] EfoesexAXBOLWDHSM3707-71-47 09:51:000.0[facility] YrcmmubKANFHNAXQZ9361-54-58 09:51:000.8[facility] HlpspqgFKCSNMNBYD3937-92-33 09:51:000.9[facility] CSWHGHHOCE9995-22-41 09:51:008.9[facility] GmqvmsvOKUUUIFTUS8345-64-46 09:51:000.1 [facility] ArwborcTWPXYXWSSA0891-89-27 09:51:000.1[facility] HermannHEMATOLOGY 2012-09-07 09:51:007.9[facility] VglslkfBXFCGXRIRV9115-61-59 09:51:008.7[facility] GxlkhnqUOFQHWRBYR2391-00-17 09:51:0083.2[facility] DshzoztZYBVCXBWCH0868-55-47 09:51:007.3[facility] GxawzxpZLOXJHNGJM1306-38-92 09:51:83170Jtknvqlr [place] QZGRKFVIJB2992-71-41 09:51:009.1[facility] QwpudgwONTSYGABDY3856-80-38 09:51:00 2.85[facility] BexsnxvJGWYOQQCXB6375-54-30 09:51:0010.6[facility] HermannHEMATOLOGY 2012-09-07 09:51:0014.1[facility] LamyojdSGBQSFSBSL4803-03-43 09:51:0034.6[facility] IofumllZCXBJMAHSL7194-71-24 09:51:00* Test Item Value Reference Range Interpretation Comments MCH (test code = MCH) 32.0 pg 27.0-31.0 H [facility] AhapqwyAXVQYLVJXU5096-03-70 09:51:0092.5[facility] HermannHEMATOLOGY 2012-09-07 09:51:0026.4[facility] DllowdnAHUPNHZTZF1698-13-14 09:51:00Negative *NA*(09/07/2012 03:51:00) [facility] HermannBACTERIAL - ABINUGQZ6621-60-57 02:45:00Negative 1(09/06/2012 20:45:00) [facility] VurxrdsKIYQWISAR8454-64-36 11:17:001.740[facility] XxllmaiXYMWSSNGZK2973-59-54 11:17:007.1[facility] UVCOATEAXE6341-04-17 11:17:03428Rupemtja SzlgwckAYLEJDOYTI3151-62-12 11:17:00 14.2[facility] ShprbrtDEHQPSUBXM4013-71-75 11:17:00* Test Item Value Reference Range Interpretation Comments MCH (test code = MCH) 32.0 pg 27.0-31.0 H [facility] SffwpqyIYPCBPEBLM7755-28-33 11:17:0034.4[facility] HermannHEMATOLOGY 2012-09-06 11:17:0093.1[facility] GofpgxzQDEXLMJZKD1173-09-92 11:17:0010.2[facility] DqotwqsUACOQIDCFU0954-57-14 11:17:003.18[facility] SbhuictNPNZPWPGEH6968-15-08 11:17:0029.6[facility] OtshpemYXDGYRUQLH1517-57-28 11:17:008.3[facility] [place] [facility] XPONPFZGQG0119-46-02 11:17:000.0[facility] CcvndhoSAMHOYSZKT6902-93-29 11:17:000.2 [facility] VdyfimnAYIDEXENDF9874-38-54 11:17:000.8[facility] HermannHEMATOLOGY 2012-09-06 11:17:007.4[facility] FowdscaBDINDUURMK0377-91-27 11:17:000.0[facility] SozgmjsZBLCOYRUOI0636-44-70 11:17:000.1[facility] ZydxnzwUYVNQQSUKM7394-86-27 11:17:000.2[facility] ZctmrazGNVHVZXDDX3712-22-84 11:17:009.5[facility] MRNFIZGWGL4532-62-73 11:17:001.3[facility] FjpadxsXPNDYBRIRZ2888-08-11 11:17:00 88.8[facility] PltxshpQFGKDDOLS0000-54-74 21:01:0028[facility] HermannCHEMISTRY 2012-09-05 21:01:003.5[facility] OuxnfgsOLEECTAOS7803-45-32 21:01:48676Dajcerid TxfmdeuJEGIMEAFR2587-59-66 21:01:0046[facility] KbistsvUWDITVRKH8823-14-29 21:01:000.5[facility] WienydiJPQKHPINQ4936-81-28 21:01:008.7[facility] DWBVBBFWL9639-33-35 21:01:000.7[facility] UdcgdpmNKILXICOJ1055-88-90 21:01:005.2 [facility] PksfwxlNCIAYMYVQ2519-94-79 21:01:007[facility] HermannHEMATOLOGY 2012-09-05 21:01:00Normal (09/05/2012 15:01:00) [facility]annHEMATOLOGY 2012-09-05 21:01:00Normal (09/05/2012 15:01:00) [facility] HermannBEDSIDE GLUCOSE UQJDGCR0291-70-48 16:12:25076Areamgfc HermannBEDSIDE GLUCOSE MJDDBGZ9562-60-94 11:30:0068[facility] SnvtwomLJFYAPJBZ3404-76-00 10:59:002.4[facility] [place] PXZISOLXV0322-77-62 10:59:008.1[facility] DrngtdqONVHTNXWF3375-62-02 10:59:0016.7 [facility] MpshpykZFESDYCAG9386-51-39 10:59:72661Hinlcdnd HermannCHEMISTRY 2012-07-11 10:59:004.3[facility] JqtgprdCDDTVVIBD6044-18-77 10:59:0093[facility] YhpxxafYPOFSOYLG9309-79-35 10:59:004.7[facility] XntbnofDPXVYHMVU4397-73-48 10:59:0024[facility] WtvyjdwKAZAEZHZM7993-14-93 10:59:0081[facility] DJAHYHCEK5617-86-33 10:59:0041[facility] HermannBEDSIDE GLUCOSE MBUNJHN1793-48-97 01:44:07684Tunnbmvs PzhodstGDXDPOIFA4117-24-88 09:26:002.0[facility] SEVSAKLKT1072-09-06 09:26:0097[facility] LytqnkgBLDDEQHKT7055-38-56 09:26:004.3 [facility] FulcxpbXXNKPHQWK2710-21-28 09:26:007.3[facility] HermannCHEMISTRY 2012-07-10 09:26:0028[facility] QzgtmgpWPVQWNRIS0625-91-63 09:26:0031[facility] TgcamgwAGAXXBLAY7204-82-49 09:26:93167Bqjduasj UhpeoatEVIYHSASD9489-49-03 09:26:003.9[facility] QvyesmfDUGWPYFBD0549-91-30 09:26:0096[facility] MVJHQGBEG9456-56-63 09:26:0013.3[facility] DhkymmoBPEQIAUKGA8947-22-11 09:26:005.9 [facility] MqgrqqkXCTBICINIU8719-72-69 09:26:0034.7[facility] HermannHEMATOLOGY 2012-07-10 09:26:00* Test Item Value Reference Range Interpretation Comments MCH (test code = MCH) 32.8 pg 27.0-31.0 H [facility] EoulwrhCTMFDSTIGC4184-02-73 09:26:92716Gmffffrr HermannHEMATOLOGY 2012-07-10 09:26:0016.2[facility] LjgiheePWGOQPYPIJ8216-26-52 09:26:0094.3[facility] VendmocRLIMVHCZYV0736-33-68 09:26:002.72[facility] MjhtygcTJQAJUZIZR9026-81-35 09:26:007.5[facility] XyuvtnmWGSUDDZLXC8741-56-66 09:26:0025.6[facility] VLHPAFODHL6751-24-67 09:26:008.9[facility] PsuqbjxZYKXBKORPZ1272-27-69 09:26:000.0 [facility] BqtqbuuAMYBWADACZ1585-15-07 09:26:001.1[facility] HermannHEMATOLOGY 2012-07-10 09:26:000.8[facility] GtiudnvHRLEQTSHHI0568-35-54 09:26:000.3[facility] UxypkdcXIRMJNNQZN2420-65-89 09:26:000.3[facility] LrspsipEMPWDFHWWX1636-60-77 09:26:005.3[facility] LnjwtexBODHYRHJNZ4115-71-41 09:26:0014.4[facility] GEDEXLKQBV5313-41-04 09:26:0010.6[facility] CaawdwrMJGTMEMUJS3036-65-79 09:26:00 4.0[facility] DotdohfACCALIISPN0353-35-07 09:26:0070.7[facility] HermannIMMUNOLOGY 2012-07-08 19:00:00Negative *NA*(07/08/2012 14:00:00) [facility]annCHEMISTRY 2012-07-06 10:36:0096[facility] QewlyfhCUYXFOVLH9568-16-56 10:36:004.4[facility] HtjipapBMLQXMSGS3697-98-38 10:36:97314Mjohelbr KhsnjinDCDDFVOMO9684-36-06 10:36:00* Test Item Value Reference Range Interpretation Comments eGFR (test code = eGFR) 9 1 [facility] GnsaovyTKMAGAERZ8135-16-89 10:36:0014.4[facility] HermannCHEMISTRY 2012-07-06 10:36:007.3[facility] QnpgqrqHYCXZZMSZ0362-35-13 10:36:0025[facility] LdlutxhVXWBWRKKU2726-32-10 10:36:005.3[facility] BqbtklyKBDMZTIFN2930-93-55 10:36:0041[facility] YznbefgHBULTXPZQ9051-17-14 10:36:41927Uvfhxmiy [place] FYFKZQGML8143-73-98 10:36:006.1[facility] FksxsslBOMCEXFFW5231-86-26 10:36:001858 [facility] AwuzutaRAGHYMSYA8370-51-69 10:36:12584Okmilmnv HermannCHEMISTRY 2012-07-06 10:36:0068[facility] NrjwmtgUZHQSPTCO8863-93-31 10:36:29305Kklrimxq IwhesodRTLXMKCIB9203-96-94 10:36:0028[facility] AdxtjlmUSYMVNABW2734-42-89 10:36:62802Mnsqhhek UuriigdGWKOBGEJVB2248-12-58 10:36:005.9[facility] MYFIXJXUSX8918-86-88 10:36:000.3[facility] JreolvsJFLXXIJKST7425-19-03 10:36:00 68.9[facility] KbbjeysTJVHKQCTON5938-57-68 10:36:000.4[facility] HermannHEMATOLOGY 2012-07-06 10:36:001.4[facility] CgweychTSWIPWBWME3682-46-04 10:36:000.9[facility] VniczkvBXGFSBNXCA8549-60-58 10:36:000.0[facility] MiuxclkKTJRZLQYPI3165-33-34 10:36:004.7[facility] SmqcoovBCHXRWVJSH9235-89-60 10:36:0016.1[facility] BNXYOOEKCN4636-13-37 10:36:0010.0[facility] JbmvxvqNIGKXELAVD9691-63-09 10:36:00 34.0[facility] SpordvdSXITUHGNQB3013-86-41 10:36:0017.4[facility] HermannHEMATOLOGY 2012-07-06 10:36:008.3[facility] XhgqxocRAMNUKIZHV1717-52-53 10:36:66618Oovnfrvz CrsvqlhYKFHRJUQTF5046-53-29 10:36:006.5[facility] PpxddbjGBDEWAKXXQ8249-49-60 10:36:002.56[facility] VbnhetwSMOGIZCKDK8184-43-02 10:36:0095.7[facility] JKGVEPPMLR7792-44-42 10:36:00* Test Item Value Reference Range Interpretation Comments MCH (test code = MCH) 32.6 pg 27.0-31.0 H [facility] LtllovxIGEISTXMPX8552-73-38 10:36:0024.5[facility] HermannHEMATOLOGY 2012-07-06 10:36:008.5[facility] JgvbvnrMJIKNAERE4255-19-06 11:53:00* Test Item Value Reference Range Interpretation Comments eGFR (test code = eGFR) 8 1 [facility] ZhnkofzSGSLIZCDX1030-55-68 11:53:003.2[facility] HermannCHEMISTRY 2012-07-04 11:53:87129Wjkzcbww IqkibtgKYDJHSAPU8894-35-73 11:53:009[facility] ZfziotiGIRKWZCAW4051-51-39 11:53:000.7[facility] ZffcoxuPSXCHSSFB4435-34-26 11:53:0014[facility] NgfzhjbNJMVFWYTI3002-77-54 11:53:003.4[facility] GBVRIHMTW9317-83-48 11:53:000.9[facility] FzdcqmkAPHJAJKLI5487-40-05 11:53:0028 [facility] PzjvpbcMXCFWNUHB3128-70-32 11:53:006.6[facility] HermannCHEMISTRY 2012-07-04 11:53:005.7[facility] JxfkpgrANZTQBYQFS8249-08-16 11:53:006.9[facility] HjoaddpVCOXHMPQGQ5893-40-85 11:53:04327Ssmgatsj EmcfzahPCPPERAAXT8275-17-37 11:53:0018.emorial LxwxrwoORFRTJBACD4032-98-21 11:53:009.9[facility] BBMJHVJWOY8980-86-78 11:53:00* Test Item Value Reference Range Interpretation Comments MCH (test code = MCH) 31.8 pg 27.0-31.0 H [facility] ZugrlqjPNSSOPPMCL7662-57-35 11:53:008.5[facility] HermannHEMATOLOGY 2012-07-04 11:53:002.67[facility] AbkjbxoHJXNXZGNVI4476-08-94 11:53:0096.7[facility] TghbfypOONKIFCSOJ0819-96-66 11:53:0032.8[facility] GszvjufWZQTPRRBOU7074-95-58 11:53:0025.8[facility] MetdvkqRCMUPNIXBG9915-05-65 11:53:000.0[facility] RECZTGBHVX5686-53-62 11:53:000.5[facility] UbdtdulKXZXVZFCOH1763-42-41 11:53:008.2 [facility] OugivozFLFPOVOIQS0809-41-38 11:53:000.2[facility] HermannHEMATOLOGY 2012-07-04 11:53:001.0[facility] UoedhkwJDKDSOFSJM3281-73-93 11:53:000.2[facility] TxnbigaPBJUKSTCHY4852-26-21 11:53:009.7[facility] TqrwotuCNPNDFJGYS9504-44-94 11:53:002.1[facility] RyxlwltGHJXGFXTRJ2201-24-21 11:53:005.1[facility] DKZGZBVMYT5220-89-86 11:53:0082.9[facility] RxranmlCSUZICXAV4406-66-12 11:44:003.7 [facility] DoivaxvRSHJKFKNF0694-74-80 11:44:0032[facility] HermannCHEMISTRY 2012-07-03 11:44:007.5[facility] YcwsweeJSDBDFGNH2776-68-62 11:44:008[facility] SohcqxbZHOPEGYDV3026-92-62 11:44:000.5[facility] NvqwneqEHONFVQDS2126-71-80 11:44:34405Gozqbgtg XrfosvsIQWGZFDHC4513-47-34 11:44:0014[facility] ACQSOKYKS1191-78-55 11:44:003.8[facility] XcgpsilJXABWBDNF3615-93-46 11:44:001.0 [facility] YdqtiutFITTRUNHJ1215-00-80 11:44:00* Test Item Value Reference Range Interpretation Comments eGFR (test code = eGFR) 9 1 [facility] KbqkjszUKBBGKBUX2248-27-94 09:36:001.5[facility] HermannCHEMISTRY 2012-07-02 09:36:007.1[facility] LzkhaplSBRUYERPU0683-93-63 09:36:008[facility] WqixwczUGIZNGNDU1030-15-72 09:36:001.0[facility] HrkadswHNOQADUBY6937-75-49 09:36:003.6[facility] CvixcpmDCUGBISUP5573-02-94 09:36:78531Kfvvbxjh [place] KIDEJECTR7631-51-51 09:36:000.4[facility] DdvzgmnSFGPSZIVI7017-01-63 09:36:0021 [facility] ZhtvexhSGAUYUQJN4153-79-92 09:36:0038[facility] HermannCHEMISTRY 2012-07-02 09:36:003.6[facility] YibxuewMSSYYFEFO4476-96-07 09:36:007.2[facility] FobwleaNUJKNHVAB5528-91-13 09:36:001.9[facility] CymwkttAFBRTHYTZ2824-95-55 09:36:00<0.02[facility] PdpuddkNXVQUHTDJ5373-54-88 09:36:000.7[facility] AGFFSXVEX3157-92-73 09:36:0048[facility] NfhszvkDUGQOYWUV7341-55-83 00:28:00<1.1 [facility] DclgqvcJIHEIVMYB5015-31-56 00:28:00<0.5[facility] HermannCHEMISTRY 2012-07-02 00:28:0047[facility] CkrbbciZSGGVZBRH1195-86-90 00:28:00<0.02[facility] QyypdwfKSOENHPCUC4459-03-61 04:00:004[facility] DxtuhusOOBQSAMNVA4546-39-09 04:00:00Few /LPF *NA*(06/30/2012 23:00:00) [facility] OtdatviYHBHFXPCPO3699-47-11 04:00:00Moderate /HPF *ABN*(06/30/2012 23:00:00) [facility]annURINALYSIS 2012-07-01 04:00:00>182[facility] HnwbbbrFVFUMTQGHH0595-22-58 04:00:00Negative *NA*(06/30/2012 23:00:00) [facility] EdtjzymHNOBNVMEBS3297-34-08 04:00:00Negative mg/dL *NA*(06/30/2012 23:00:00) [facility] CqesbizPZKQSNCNKA1067-30-41 04:00:00 Negative (06/30/2012 23:00:00) [facility] ThnfqlfLLOUFRFYGL1651-60-39 04:00:00 Negative (06/30/2012 23:00:00) [facility] TgwpsmgKWDPCOCOOM1474-32-48 04:00:00 Large *ABN*(06/30/2012 23:00:00) [facility] MuxzdvlOLHKITCUSI5854-91-54 04:00:00 Negative mg/dL *NA*(06/30/2012 23:00:00) [facility] KqtsznxTTNPHNKPVQ1132-53-56 04:00:00>=300 mg/dL *ABN*(06/30/2012 23:00:00) [facility] HermannURINALYSIS 2012-07-01 04:00:006.0[facility] VxhsrjmJOZMKHOPZH7273-35-67 04:00:001.013[facility] ZsznaofNXBBWJNRMI1462-09-40 04:00:00Marked *ABN*(06/30/2012 23:00:00) [facility] CtzrkweLNXYAOYOI4521-47-09 01:45:0066[facility] BcmbwilAVWLXQSJU5359-12-87 01:45:00<0.02[facility] RxckvkrCIFRTLYVJ7861-57-11 01:45:001.1[facility] QTQAHHEUX1519-45-93 01:45:001.7[facility] HermannBEDSIDE GLUCOSE VUVZDFS6812-59-21 21:37:0097[facility] HermannBEDSIDE GLUCOSE XLWNFAD7054-55-16 16:17:98788Ozfqpcjg HermannBEDSIDE GLUCOSE AANNMBX7998-29-90 12:32:14143Lrnvblcx HermannCHEMISTRY 2012-02-16 10:55:0094[facility] ThonxedSQJLKPKOR8522-44-02 10:55:004.4[facility] RlzflroULPWGGXVO6592-47-53 10:55:31344Pwimnibw XtamuakLXCTFIAHH3333-98-77 10:55:003.8[facility] SwbmzreMKXDUQZOV9845-37-66 10:55:0032[facility] JOOAYUJSQ6719-43-24 10:55:0026[facility] UmpmiuaWEWFDEVCP0374-01-12 10:55:008.3 [facility] EvuuwcpRTLZVGPUM2762-28-47 10:55:0098[facility] HermannCHEMISTRY 2012-02-16 10:55:0017.4[facility] ChiwjsfJMUOCYUYFE3130-96-21 10:55:31261Kvihnase UnpasfgOIUHBZSCCN6484-65-62 10:55:007.0[facility] QmccdqsLDOETVOANQ7794-48-03 10:55:005.6[facility] MqowiffASPHGLCQJJ2742-60-82 10:55:002.95[facility] FUMFWEZMNS2250-53-92 10:55:0025.7[facility] NdoehvpNTJOIDQQIX6908-06-00 10:55:00 87.2[facility] UnlphfpYHABWXIQGI9979-33-31 10:55:008.4[facility] HermannHEMATOLOGY 2012-02-16 10:55:0032.7[facility] UrmjnitGKRSKBFLVJ5216-16-67 10:55:0017.9[facility] AqqpapdOHYXMPPAZG6476-29-82 10:55:00* Test Item Value Reference Range Interpretation Comments MCH (test code = MCH) 28.5 pg 27.0-31.0 N [facility] QrhocdnBKKVMVGVXA1382-92-24 10:55:0019.1[facility] HermannHEMATOLOGY 2012-02-16 10:55:0065.1[facility] NqnfaodWALVYMIANB3935-66-22 10:55:009.5[facility] GoabronXMAEGFNYPX4458-55-65 10:55:005.8[facility] MdooefqMKFYVTDTRV0789-22-09 10:55:000.5[facility] LkygizoUTFQSEZHIH7965-85-00 10:55:003.6[facility] RGRQJMNEWU1257-14-58 10:55:001.1[facility] UetagftXWTSTMKPKZ6643-06-74 10:55:000.3 [facility] ElyhnxjNLFCKMXDUY3096-37-42 10:55:000.5[facility] HermannHEMATOLOGY 2012-02-16 10:55:000.0[facility] UyvkagiQKVHNYDHK7943-31-68 09:47:007.3[facility] KixaifwCANPAGCVP7580-29-69 09:47:002.9[facility] RvzdilqZALGHVMAZ6503-83-48 09:47:008[facility] FrkjtiqLKYGCMHVC7869-07-89 09:47:000.6[facility] GGGRSSQZL4974-39-35 09:47:60382Zzzapxor FkmqfgeRJFBVOMBQ3867-29-74 09:47:0010 [facility] RmhbuyiBTGKTUZJA5502-23-66 09:47:0092[facility] HermannCHEMISTRY 2012-02-15 09:47:008.7[facility] QnlipluDXSMIINYY5195-23-68 09:47:0023[facility] HrphgyjUUENLCCDP3603-39-61 09:47:005.1[facility] WhiabfyONVRVFRIT8837-23-75 09:47:0018.1[facility] EggbpmzJZHGXIHOG9913-26-88 09:47:000.7[facility] SOGUAHXLM6293-57-85 09:47:0010[facility] ShetddxRNOFUHVLR8819-76-06 09:47:004.4 [facility] MjxudpiISLJRRXDE9212-59-41 09:47:00* Test Item Value Reference Range Interpretation Comments eGFR (test code = eGFR) 8 1 [facility] SjgvzbjVXXGWDLCQ5323-78-12 09:47:16266Cjnliwfm HermannCHEMISTRY 2012-02-15 09:47:005.8[facility] ZxaebwuKUPGUXMIB1016-52-42 09:47:0057[facility] WsxsjveRZKHHTJAP4266-40-01 09:47:18238Qrlnkbqj FqfekerEEKOXFYUUX7991-06-17 09:47:006.8[facility] YulbwatMTVKJFIIJA3076-58-44 09:47:00* Test Item Value Reference Range Interpretation Comments MCH (test code = MCH) 29.3 pg 27.0-31.0 N [facility] TvfdnuyIBBBSKNCYA2616-39-01 09:47:61769Zpdocegt HermannHEMATOLOGY 2012-02-15 09:47:0018.1[facility] MnmwzqoMMQADMHMPB5351-37-80 09:47:0033.9[facility] OonddlbJOPPSILFMT2369-38-74 09:47:0086.6[facility] HwoawycZADVQCXZSY6680-52-97 09:47:0026.2[facility] CsardtbOFZYFZCSWI6727-34-65 09:47:007.1[facility] DNYTKVSPAQ0271-30-31 09:47:008.9[facility] RoryxrsKZUIOTTRZM9250-17-19 09:47:00 3.03[facility] CgkwugfLZNTHPQQVB1594-45-90 09:47:000.0[facility] HermannHEMATOLOGY 2012-02-15 09:47:001.1[facility] JafqgleJOGVKBJLUH3078-87-12 09:47:000.4[facility] ZzorxmiPCBBUOSGMD4026-65-39 09:47:000.5[facility] KvaxiczBZSIEIEPLY4523-24-09 09:47:0070.9[facility] MpqfsbpTEGQHXXSDC0077-47-81 09:47:000.3[facility] QALVKPQBXK4760-58-61 09:47:005.0[facility] UmorsylCRVDCUMFQZ4065-42-44 09:47:00 15.3[facility] CakjvowXAODINPMTI7443-46-98 09:47:007.4[facility] HermannHEMATOLOGY 2012-02-15 09:47:006.1[facility] EwwvbmtXHJMOPFWB2495-44-58 11:10:0050[facility] TvswendVAJGBOSRB2819-10-58 11:10:57858Uycfdpqv FosswyzMQAIAUBFF3266-62-39 11:10:00* Test Item Value Reference Range Interpretation Comments eGFR (test code = eGFR) 10 1 [facility] AasjgpwHBIAQCCNR0240-34-34 11:10:0020.2[facility] HermannCHEMISTRY 2012-02-14 11:10:004.6[facility] SipnvpnDUAGFKZED0324-52-69 11:10:0010[facility] NetlycuGVEUWLADK0982-78-59 11:10:000.7[facility] BspwjamCVUYNXZRX1206-10-40 11:10:0016[facility] ArwicsuNKAEKURKG2577-46-02 11:10:003.0[facility] BXDQMTIZC4117-53-80 11:10:000.4[facility] ObrscwyJTCCAEQTO9150-43-43 11:10:53667 [facility] IrqmgdbMAZRPJABE2929-21-43 11:10:0018[facility] HermannCHEMISTRY 2012-02-14 11:10:0094[facility] TxllmozXLGYWSPSN0526-05-50 11:10:005.2[facility] MwwlgkpNRQWAHXRF1701-78-38 11:10:008.8[facility] LwlliixLJLMVWFPB4943-68-52 11:10:0021[facility] ByoibwrMDJUNKITU4816-85-79 11:10:007.[facility] UWZXJDJFU4265-59-69 11:10:004.9[facility] NuprezzADVJAWZFR1249-30-02 11:10:07089 [facility] AncpkvpFLUJMKZYL4805-81-51 11:10:13107Geqlaszb HermannCHEMISTRY 2012-02-14 11:10:0054[facility] CedhgjzGLVWTUUOYM1460-50-02 11:10:0018.4[facility] SczatvmZSFSQKXIGX8320-62-56 11:10:94510Pcafmayg XtiepreGMCZXGZUMU3034-38-53 11:10:006.7[facility] IzuzheqNARIICOBHS4912-92-46 11:10:0033.3[facility] UIRJDOCSEQ1999-22-17 11:10:00* Test Item Value Reference Range Interpretation Comments MCH (test code = MCH) 28.8 pg 27.0-31.0 N [facility] VgxyhykOYBDFEQJOX8362-53-55 11:10:0086.6[facility] HermannHEMATOLOGY 2012-02-14 11:10:003.24[facility] ChmibxjWSBRKTPRTG9820-90-88 11:10:009.4[facility] DbcweajXCZVFANZNE4810-20-87 11:10:009.3[facility] MxptxesUJVZCFMOCN3433-31-63 11:10:0028.1[facility] MlkjybjRNKJOAZTCK1103-92-35 11:10:000.4[facility] EMGQBMVTML1149-62-09 11:10:000.0[facility] WvwiayuCQMIWYVHLM3356-81-69 11:10:000.4 [facility] VaycyzfEKYTXMFRFO2230-11-57 11:10:007.3[facility] HermannHEMATOLOGY 2012-02-14 11:10:001.3[facility] SfhyqujYOIKOTCKBB6742-52-92 11:10:000.3[facility] FtakpinLVVKTGBRXA4883-23-62 11:10:00Normal (02/14/2012 06:10:00) [facility] FlpazxsRAAVCJPHEN6895-22-07 11:10:00Normal (02/14/2012 06:10:00) [facility] HceempkDAZSYBXUBQ3038-42-24 11:10:004.6[facility] KzlglugHXMEIFJSSA6657-72-76 11:10:0077.5[facility] GefbqmqMXZQAFZRNF5144-48-21 11:10:004.2[facility] WQHOOBXIZU9797-10-41 11:10:0013.4[facility] HermannBODY AMFRNG7308-92-74 18:24:00 Abdomn *NA*(02/12/2012 13:24:00) [facility] HermannBODY KWCFIM1017-82-62 18:24:00 0.5[facility] [facility] ILQUTM1023-30-43 18:24:00Clear (02/12/2012 13:24:00) [facility] OAPFAA5862-96-39 18:24:88737Afirlekv [facility]ann[facility] FLUIDS 2012-02-12 18:24:00Yellow (02/12/2012 13:24:00) [facility]UIDS 2012-02-12 18:24:0021[facility] QUGGKD3553-64-58 18:24:00Abdomn (02/12/2012 13:24:00) [facility] NOQTXM9762-53-10 18:24:005[facility] AEKJGB0489-87-28 18:24:005[facility] PPHQNP1965-77-10 18:24:0070[facility] RDHJVO0872-97-51 18:24:00Occasional (02/12/2012 13:24:00) [facility] GQYTBL7740-04-87 18:24:0020[facility] WQRIDI1475-51-62 18:24:00Abdomn *NA*(02/12/2012 13:24:00) [facility] ECYVNL6857-86-74 18:24:006.2[facility] HMCBBL1821-61-11 18:24:00Abdomn *NA*(02/12/2012 13:24:00) [facility] OYXLUV2670-77-48 18:24:35506 [facility] LvahrxwMUEVAEDLI7033-58-43 11:11:004.8[facility] HermannCHEMISTRY 2012-02-12 11:11:00* Test Item Value Reference Range Interpretation Comments eGFR (test code = eGFR) 13 1 [facility] XksqqugZUWWGLHTX1885-33-42 01:00:22339Vpitnihy HermannCHEMISTRY 2012-02-01 01:00:0012[facility] AehuxxqSKUMGZWZX1490-05-42 01:00:002.9[facility] NkbslivAKHJSHVAK7675-17-87 01:00:007.6[facility] MsqdlwgTKNPIPEQA2529-37-94 01:00:0015[facility] SgdolhgXXCGYOPVV8307-16-36 01:00:000.3[facility] XPKPVIZHW4700-27-85 01:00:000.6[facility] SwnmncnJZBDUVHNB4308-19-85 01:00:004.7 [facility] DajzwduRESTXCXVR2442-73-85 01:00:0010[facility]annHEMATOLOGY 2012-02-01 01:00:00Slight *ABN*(01/31/2012 20:00:00) [facility]HE[facility]Y 2012-02-01 01:00:00Normal (01/31/2012 20:00:00) [facility]HEMATOLOGY 2012-02-01 01:00:00* Test Item Value Reference Range Interpretation Comments PTT (test code = PTT) 29.6 s 22.9-35.8 N [facility] VvibzajWMOPSWBOBS9001-63-45 01:00:00* Test Item Value Reference Range Interpretation Comments PT (test code = PT) 14.5 s 12.0-14.7 N [facility]FwprtwhIREBIWMZGE8654-65-28 01:00[facility]001[address] 2012-02-01 00:06:00Negative (01/31/2012 19:06:00) [facility] 2012-[facility]01 00:06:00>=300 mg/dL *ABN*(01/31/2012 19:06:00) [facility] ZKPKYYUBPU6006-12-37 00:06:00Negative *NA*(01/31/2012 19:06:00) [facility] HospitalEtnjxwfDFZRJLEDOG1087-07-66 00:06:00Negative (01/31/2012 19:06:00) [facility] HospitalZyjjeceTKWDRLYJQW8822-04-41 00:06:00Large *ABN*(01/31/2012 19:06:00) [facility] HospitalMigtlxhXLLLNQNPSO1339-96-25 00:06:00Positive *ABN*(01/31/2012 19:06:00) [facility] HospitalMkwqbcsLAILSWVHMB8751-55-20 00:06:001.0[facility] 2012-02-01 00:06:00Trace *ABN*(01/31/2012 19:06:00) [facility] 2012-02-01 00:06:00* Test Item Value Reference Range Interpretation Comments UA pH (test code = UA pH) 6.5 1 5.0-8.0 N [facility] HospitalPmkjyarKFQGABGTFJ0563-90-77 00:06:00Red *ABN*(01/31/2012 19:06:00) [facility] HospitalLbzneczPWCTTDTCUE6181-02-04 00:06:00Bloody *ABN*(01/31/2012 19:06:00) [facility] HospitalFfyetlvOQOOZRXVQF8294-96-16 00:06:00* Test Item Value Reference Range Interpretation Comments UA Spec Grav (test code = UA Spec Grav) 1.010 1 N [facility] HospitalWqvtireNLRUBDOBSU0795-22-96 00:06:00Few /HPF (01/31/2012 19:06:00) [facility] NlvnlmePSXBLJYODI1796-12-97 00:06:00Packed *ABN*(01/31/2012 19:06:00) [facility] DiodvotOGFJLNKBHF3275-00-57 00:06:003-5 /HPF (01/31/2012 19:06:00) [facility] PrreuxcUQSHCHMPCU0651-13-31 00:06:00Few /LPF (01/31/2012 19:06:00) [facility] HhjvqpyBBKASIXDCT7064-72-39 00:06:00Performed (01/31/2012 19:06:00) [facility]annBEDSIDE GLUCOSE PFORFPW8050-75-78 22:38:41071Foogbfgf [place] BEDSIDE GLUCOSE RWPVAAS2554-14-53 16:33:79718Vikqyxey KvldnwgFZZHZVAYH7860-90-81 14:07:0018[facility] IyienviMSLKLEJQN1527-85-65 14:07:0058[facility] [place] ABDAKPMCU3988-06-69 14:07:91521Lakganid BljumtmEELWILNNT8873-58-61 14:07:38743 [facility] YmajxytTNHDTRNTAV2824-29-76 14:07:000.5[facility] HermannHEMATOLOGY 2012-01-29 14:07:000.0[facility] LmsyozaOWWYHCNLZA7452-94-30 14:07:008.8[facility] NqseszuZSGXORRGCJ0638-84-63 14:07:006.0[facility] YtfmqjrKOGGDXJADF9503-85-61 14:07:000.3[facility] BhgnlreIJEMYJBRKH0657-44-75 14:07:008.6[facility] [place] XUKVMJKIBA0918-95-63 14:07:006.4[facility] CumbvpgQPHTKDTWJG7473-35-51 14:07:000.7 [facility] VjcftgeGYSKKQZFSS2116-56-97 14:07:000.7[facility] HermannHEMATOLOGY 2012-01-29 14:07:0076.3[facility] LowpibgSVBSGAGPKG1078-81-72 14:07:007.9[facility] QhujgapFVBQLXISYT5154-06-47 14:07:0026.8[facility] CfgggodDRZRNXEZSR7078-40-70 14:07:0086.9[facility] DfzuzhyHUWZMCHGNX8183-84-70 14:07:00* Test Item Value Reference Range Interpretation Comments MCH (test code = MCH) 28.3 pg 27.0-31.0 N [facility] KezlovoRYFOYCJEZF4665-07-95 14:07:008.4[facility]annHEMATOLOGY 2012-01-29 14:07:008.7[facility] UvoboayEWWNBHPYWH0153-47-76 14:07:003.08[facility] IjmqznoWAOTKBGDWD5363-57-30 14:07:0018.1[facility] XvwziqpJQPKFWDSXL8980-37-42 14:07:0032.5[facility] AqldpnfIUOPJDCXKB6786-64-89 14:07:44206Vwqxqxjo [place] BEDSIDE GLUCOSE BPSHECA5708-87-06 13:30:95066Sddrkpgu HermannHEMATOLOGY 2012-01-27 11:56:0074.0[facility] FoncuigNJUUCHPYNQ3348-22-25 11:56:0010.7[facility] OiqjuvwARKUOHNEAR8200-56-96 11:56:008.7[facility] LegommcNZHOGCOTKD9160-66-79 11:56:000.3[facility] BxqyajuLKZECIZMUA0880-65-45 11:56:006.3[facility] [place] CSREHGXSSS9265-29-67 11:56:000.0[facility] HbmwtbrXNHKXJZGHW5180-31-73 11:56:000.5 [facility] EydrgugCQOPDEJRSN5740-14-67 11:56:006.1[facility] HermannHEMATOLOGY 2012-01-27 11:56:000.7[facility] GbyjrscELSINSNYGN3151-36-39 11:56:000.9[facility] AfwexptHFJWLSVZHF4670-01-95 11:56:003.17[facility] KgiqwydEGWYIQZWAF5956-91-60 11:56:009.1[facility] MxdpholKBCVHDMFGU4723-17-86 11:56:00* Test Item Value Reference Range Interpretation Comments MCH (test code = MCH) 28.6 pg 27.0-31.0 N [facility] NjfyyvwYYXRJKJIKG6102-13-40 11:56:0087.4[facility] HermannHEMATOLOGY 2012-01-27 11:56:0027.7[facility] UtfexitSXPKSIYSFL1628-17-34 11:56:0017.2[facility] CiiozzvMLGINEPGYZ8516-52-11 11:56:08867Iwncmuqt XlvaroaKCTGVDQGXH9279-34-76 11:56:0032.7[facility] ZxuzdljJSZWNHTWSL0426-12-74 11:56:008.0[facility] [place] LSPEBEVHDA0249-67-50 11:56:008.3[facility] MyrvfixIZCUIYTSW9489-65-49 11:07:004.0 [facility] VkcrwkjIBXDXPDVZ9514-00-12 11:07:0017.6[facility] HermannCHEMISTRY 2012-01-27 11:07:008.3[facility] WqnwuliDMFSYMPQP5730-42-03 11:07:00* Test Item Value Reference Range Interpretation Comments eGFR (test code = eGFR) 13 1 [facility] RmoiousLNCOTFLFB7270-96-43 11:07:003.8[facility] HermannCHEMISTRY 2012-01-27 11:07:0038[facility] CkvxrprDMFHIKJPI6818-71-67 11:07:0096[facility] CalxttbYJDRCZBVJ5888-95-91 11:07:0026[facility] VcedyogMHBPZMBJS3358-79-54 11:07:004.6[facility] ErhpibsFEIMTPQJC4131-58-87 11:07:64741Cporbjsl [place] WXJLTCZAF8401-87-40 11:07:50452Llrggziq JwczafnEPBBBYJLBP7922-62-09 22:45:00 Negative *NA*(01/26/2012 17:45:00) [facility] YstfoktIZDSXFZSE3477-69-27 10:40:00 14.4[facility] NetnlddRERDJILZE7672-14-99 10:40:59666Zdcqwcbj HermannCHEMISTRY 2012-01-24 10:40:0030[facility] EdhedggTOXFUEZFC1212-16-09 10:40:32193Uyzkdxny DrqizvsDQKCYHHIQ2275-76-19 10:40:008.0[facility] ZxadiiaGIMDNHXRL3691-53-28 10:40:0098[facility] YwilsvyMEEMVTBMT8064-23-32 10:40:003.7[facility] [place] RFIOEVPSV3509-91-73 10:40:004.4[facility] VbyzhcuUDUYXZZLX5409-84-65 10:40:0031 [facility] HqblmwwUQLAXIMFPW2276-28-21 10:40:000.0[facility] HermannHEMATOLOGY 2012-01-24 10:40:000.4[facility] EvptsooYESSDCXEIZ9387-44-96 10:40:000.8[facility] BjuwkcuFCNIYUTZSN3298-61-91 10:40:000.8[facility] FgubtmpMQOZGWLPPN2381-97-18 10:40:006.2[facility] PicqvncEYBPOLYUDU6901-22-53 10:40:000.3[facility] [place] SVERDEKYPY7518-72-24 10:40:005.0[facility] MdypuakQUUYFDNQQQ5998-75-25 10:40:00 70.5[facility] KyncgpaNLATBGNERE7761-88-39 10:40:0011.6[facility] HermannHEMATOLOGY 2012-01-24 10:40:0011.4[facility] WpluwydAGKRIWMNON2769-54-80 10:40:0017.1[facility] DtbgufhSNVQGTPPFK0026-42-59 10:40:63456Kohhcsel FwebdxsJVAOZRIPHX4914-57-24 10:40:007.5[facility] KvpbuazPUESRDAAVF4100-30-17 10:40:00* Test Item Value Reference Range Interpretation Comments MCH (test code = MCH) 28.3 pg 27.0-31.0 N [facility] MsedydvYTUOVDDZSG3260-56-19 10:40:0032.6[facility] HermannHEMATOLOGY 2012-01-24 10:40:008.7[facility] LyywsvyJMNIAYNKBF0134-56-48 10:40:0026.6[facility] PuvkqxfXLQVAQQKKC8273-61-57 10:40:0086.8[facility] VienlfxIPAIZYECHT6681-56-52 10:40:007.0[facility] TopulgsQNLUHVSBOZ9328-97-69 10:40:003.06[facility] BLOOD BANK QRJBCSV2734-82-14 13:35:00Product available 6(01/23/2012 08:35:00) [facility] KYAAOCC4125-05-42 13:35:00Negative (01/23/2012 08:35:00) [facility] IziyiqxGDIKASPUY8050-75-66 12:30:00* Test Item Value Reference Range Interpretation Comments eGFR (test code = eGFR) 12 1 [facility] WwjnspiOKEMDLJKU2499-49-21 12:30:0014.5[facility] HermannCHEMISTRY 2012-01-23 12:30:11598Xryslvts FddzkgtYADPLLRLY8880-68-05 12:30:0029[facility] CsnpiuxYTULLFJYZ2647-89-36 12:30:008.1[facility] GhmyevwSCINKKFTY9690-67-37 12:30:004.5[facility] KqhdgtdOYQLZWLGO1419-53-61 12:30:0099[facility] [place] LEOYRPFTH6047-06-36 12:30:0048[facility] NtpvveuXIJDZMWRL9591-80-29 12:30:0081 [facility] TckwnwrNHNPKTHYR1534-70-26 12:30:004.2[facility] HermannURINALYSIS 2012-01-22 14:25:00Few /HPF (01/22/2012 09:25:00) [facility]annURINALYSIS 2012-01-22 14:25:003-5 /HPF (01/22/2012 09:25:00) [facility]annURINALYSIS 2012-01-22 14:25:00Packed *ABN*(01/22/2012 09:25:00) [facility]annURINALYSIS 2012-01-22 14:25:00Few /LPF (01/22/2012 09:25:00) [facility]annURINALYSIS 2012-01-22 14:25:00Turbid *ABN*(01/22/2012 09:25:00) [facility]annURINALYSIS 2012-01-22 14:25:00* Test Item Value Reference Range Interpretation Comments UA Spec Grav (test code = UA Spec Grav) 1.015 1 N [facility] GsazxwlXEQJJHOVFC5778-68-48 14:25:00Moderate *ABN*(01/22/2012 09:25:00) [facility] JgawnitLIHDZNFOAX3949-20-13 14:25:001.0[facility] HermannURINALYSIS 2012-01-22 14:25:00Large *ABN*(01/22/2012 09:25:00) [facility] HermannURINALYSIS 2012-01-22 14:25:00* Test Item Value Reference Range Interpretation Comments UA pH (test code = UA pH) 7.5 1 5.0-8.0 N [facility] EgtfeazBRKCABMEKR1148-23-83 14:25:00>=300 mg/dL *ABN*(01/22/2012 09:25:00) [facility]DlbfaxyJVHBFPSOTZ3695-51-42 14:25:00Negative (01/22/2012 09:25:00) [facility] CampusJdnbxmbCJJUWTYURU0087-42-36 14:25:00Trace *ABN*(01/22/2012 09:25:00) [facility] CampusOlsgoexECQRSIYTNV8734-34-93 14:25:00Red *ABN*(01/22/2012 09:25:00) [facility] CampusWadxqzlYSPOAXSBQI8837-60-85 14:25:00Positive *ABN*(01/22/2012 09:25:00) [facility] CampusCmcotkvYTDJATGZQJ8818-59-85 14:25:00 Negative 4(01/22/2012 09:25:00) [facility] CampusTddayuuIUFIRJSMG6370-26-39 10:00:003.5 [facility] CampusTwilkawEBCLAQJGY0629-27-88 10:00:00* Test Item Value Reference Range Interpretation Comments eGFR (test code = eGFR) 13 1 [facility] UppetpiQGPXDSLDR2465-92-32 10:20:002.3[facility] HermannCHEMISTRY 2012-01-20 10:20:005.3[facility] AjnizggDUGPEDJGX8793-62-45 10:05:82745Kxraookg KrqeotcMDZAPYMEF1694-93-44 10:05:83483Sznbxxiq HldfuscGCMJHBORE0662-87-59 10:05:008[facility] SdpccfqMNJNRYLAC6167-08-24 10:05:0030[facility] HermannCHEMISTRY 2012-01-18 10:05:77455Ezcfxwom ObvmnuuDRTYICPTJA2258-97-79 10:05:002.6[facility] DmheismFIWLEESVN0631-13-00 19:40:0040.3[facility] OcpyjofJFOWIAFAY4379-55-50 19:40:0036[facility] JazxpriMBZJRZDRUQ8580-71-85 19:40:000.2[facility] [place] TJSJFPKQYG5243-86-71 19:40:00Negative (01/17/2012 14:40:00) [facility] [place] TGSNSCCQEF9777-34-07 19:40:00Trace *ABN*(01/17/2012 14:40:00) [facility] [place] UTBBRJICNV0305-33-69 19:40:006-10 /HPF *ABN*(01/17/2012 14:40:00) [facility] QavrjkjVVISZTURVL5886-21-28 19:40:00Few /LPF (01/17/2012 14:40:00) [facility] ImzbcivZDKGSFYKZA5962-72-61 19:40:00Packed *ABN*(01/17/2012 14:40:00) [facility] LohygfsCHCTZRYVVA4097-42-50 19:40:00Few /LPF (01/17/2012 14:40:00) [facility] UkjvlkeZZVREWQDIB9549-93-42 19:40:00Few /HPF (01/17/2012 14:40:00) [facility] LamwkkbNEZDPFPIFW9384-35-39 19:40:00* Test Item Value Reference Range Interpretation Comments UA pH (test code = UA pH) 6.5 1 5.0-8.0 N [facility] QormihhIOOSWPJLZL0601-38-23 19:40:00Slight Cloudy (01/17/2012 14:40:00) [facility] IigpdntQDJKUGLOXN6549-55-86 19:40:00* Test Item Value Reference Range Interpretation Comments UA Spec Grav (test code = UA Spec Grav) 1.010 1 N [facility] DbbognwKXDWUXPWZD7794-70-54 19:40:00Yellow *NA*(01/17/2012 14:40:00) [facility] AvgmcaeVMJTYMOWDP7367-07-83 19:40:00>=300 mg/dL *ABN*(01/17/2012 14:40:00) [facility] CampusVpevxmzDSASCICCBQ2813-77-65 19:40:00Negative *NA*(01/17/2012 14:40:00) [facility] CampusQxthqyaVJCLSHGRMQ8461-45-14 19:40:00Negative (01/17/2012 14:40:00) [facility] CampusOwgmoplWMJSNWMDKN9140-23-97 19:40:00Large *ABN*(01/17/2012 14:40:00) [facility] CampusMvnyljaQSESOVJKCA5076-65-54 19:40:00Negative *NA*(01/17/2012 14:40:00) [facility] CampusNsvhiigQIQHUNGJOZ0822-59-09 10:10:00Slight (01/17/2012 05:10:00) [facility] CampusTsjpvtdYUVYNLPYJR1040-36-60 10:10:00Normal (01/17/2012 05:10:00) [facility] CampusannBLHunan [employer] BANK SABTHBE5700-44-40 17:48:00Product available 7(01/15/2012 12:48:00) [facility] CampusYskkrueBDFTPVYCYB6501-85-52 12:07:00 3.8[facility] HospitalStats[facility] WUNDKKV7688-63-53 22:05:00Product available 8(01/14/2012 17:05:00) [facility] [employer]ormelian[employer] QGDCTJS4391-41-55 15:15:00 Negative (01/14/2012 10:15:00) [facility] CampusGvkhwekOSPFZKWOKB5491-36-93 11:20:00 Normal (01/14/2012 06:20:00) [facility] ZbktadtCIRXYHLYFI1665-42-81 11:20:00 Slight (01/14/2012 06:20:00) [facility] LizgfctUICUOVQTMQ3785-19-46 11:20:00 Slight (01/14/2012 06:20:00) [facility] GhclbcvUITWJGZMYS9993-41-46 11:20:004.3 [facility] NsrtkpvTVEYVQOJG9420-26-94 10:50:002.1[facility] HermannIMMUNOLOGY 2012-01-11 09:52:00Negative *NA*(01/11/2012 04:52:00) [facility] [place] XCXDLQUIVY1253-68-49 09:52:00Negative *NA*(01/11/2012 04:52:00) [facility] SgkuhzpEQEOGHGEOU5480-83-62 09:52:00Negative *NA*(01/11/2012 04:52:00) [facility] NsabnmqDQRJPFPZWO5337-94-94 09:52:00Negative *NA*(01/11/2012 04:52:00) [facility] DrdbbgoYOITUMIRO9018-13-86 23:53:000.5[facility] LiihgblUERGJAEKJ8662-48-15 23:53:00<0.02[facility] HhfevnoFWUVMWHPS2317-91-74 23:53:000.9[facility] [place] QDRJVDQWS4781-16-09 23:53:97256Aingkpuc RoknlakOACDZGABAT6691-87-47 23:53:003.68 [facility] FdcdnsqVFOXWSQCJ4965-88-75 21:12:0021.0[facility] HermannCHEMISTRY 2012-01-10 21:12:004.0[facility] EudzusnKYDZVMMXK0635-58-56 21:12:00Positive (01/10/2012 16:12:00) [facility] CfwqzfmGSIDNRLSA9872-45-39 21:12:00Cpap (01/10/2012 16:12:00) [facility] IgxvpfhCCACYXXGG8451-49-80 21:12:0037.0[facility] UrtigisVGVNZVTEB5849-12-46 21:12:00Right Ra (01/10/2012 16:12:00) [facility] SkckrnaPPILHSCIH9688-67-65 21:12:0041[facility] KijvamnLJHIKWRVY7211-05-73 21:12:0075[facility] OodwjfeVJTFQDQXM0461-22-18 21:12:0015[facility] [place] AHRZRSYNX1269-44-92 21:12:00-11[facility] HuumnmuXVDRNMACJ2766-53-97 21:12:007.21 [facility] RsqtnxwJJWXZJXHH0157-23-00 21:12:0091.4[facility] HermannCHEMISTRY 2012-01-09 10:45:000.93[facility] HqcfkntEPZHDWQHH8527-82-33 10:45:001.01[facility] OdztjljEUUVZCLRD6896-36-13 10:45:004.04[facility] IhiyssuJHVUSXCJN7236-63-94 10:45:003.72[facility] DddcmsoSEHCNNNNM5815-44-78 10:45:0014[facility] [place] RPNZWWDTB9815-37-13 10:45:000.6[facility] GojlluiBGSXCIMGP1063-20-44 10:45:004.1 [facility] ScdclsfRDVXSUWWV9625-75-14 10:45:005[facility] PutqihwPDHPXOERZ9437-95-17 10:45:0092[facility] KonzoloTNHPHDGIU0217-22-73 10:45:002.3[facility] OTRVKKDFR6370-21-27 10:45:006.4[facility] XytmrdwBGCPCGFMU0794-89-94 10:45:009 [facility] OracnxiVRFDIRMJZ1571-04-93 10:45:000.4[facility] HermannCHEMISTRY 2012-01-08 20:00:000.3[facility] GdxspeaYRHBASNUY3771-67-63 20:00:000.2[facility] XdowijaYHHHBPKPC5284-81-94 20:00:000.1[facility] IgnqvrhRLKJGBIXT2797-07-02 20:00:0019.5[facility] YfreintRCGAYEKZZ4027-20-71 20:00:59977Axhwrvhv [place] HNHQJQUYY2365-45-54 20:00:0055[facility] CgeabraFYWOCZJBD5146-19-00 20:00:0011.9 [facility] PnnnlikWBVNUJUNI3029-83-89 20:00:57002Zdtjvtuo HermannCHEMISTRY 2012-01-08 20:00:0012[facility] WfpcccsIBPBYHKNC8192-06-66 20:00:98996Cikdjclf QumfjubJMXWQXJEB1128-68-25 20:00:0042[facility] IeabcpfCOKWXPOPT6279-13-20 20:00:78604Zjbbffbu HssbwiwKMUPEMAOGC4693-75-72 20:00:63970Xujjhtxw [place] YHKHDPOPF6103-08-94 10:10:0020.1[facility] RhcnsorLPGYNVYNW2041-28-76 10:10:002.4 [facility] RczvuxfKCRRWSQBQH9805-12-88 10:10:00Normal (01/08/2012 05:10:00) [facility] CyxfijcBGWNJQVCFL7814-14-57 10:10:00Normal (01/08/2012 05:10:00) [facility] NchwnejYWGNVZFJS2148-13-47 10:10:0029.1[facility] HermannCHEMISTRY 2012-01-06 08:15:006.4[facility] VllozgcNOFVCIUXG7019-72-31 08:15:000.2[facility] GierlieBDTVFCDYH4300-58-17 08:15:007[facility] RufzaknVYMQLVRRX2044-34-44 08:15:00 101[facility] IhwxbqmBPEWUDYPT2981-30-60 08:15:0013[facility] HermannCHEMISTRY 2012-01-06 08:15:002.4[facility] SubuqdoRMSUNUYCA1074-03-60 08:15:000.6[facility] RtmjjlcCZKXDKXWQ6278-98-16 08:15:0015[facility] BrujxlsWQWRDUFHB1854-38-05 08:15:004.0[facility] QjsnpqkNJCEXBIFH6516-05-29 08:15:0069.6[facility] [place] IEFOLQWOVC1108-29-94 18:06:001.16[facility] XnskpfoYBZTKTSXXU6000-73-75 18:06:00* Test Item Value Reference Range Interpretation Comments PT (test code = PT) 14.8 s 12.0-14.7 H [facility]BL[facility] DNBWYPI9859-05-16 16:46:00Positive 5(01/05/2012 11:46:00) [facility] OqrhxbbWEFVTBHPH0579-73-33 09:49:47114Llmtpajf [place] JFVESBULMS1668-98-53 18:00:00Few /HPF *ABN*(01/04/2012 13:00:00) [facility] NdjprxdPQRTEKUMOH0564-40-26 18:00:00Few /HPF *ABN*(01/04/2012 13:00:00) [facility] ZlofwzdHNKVUYJTFO3213-47-38 18:00:0051-100 /HPF *ABN*(01/04/2012 13:00:00) [facility]ZhxbcdcLUEOKEWFEQ6920-43-45 18:00:00Few /HPF (01/04/2012 13:00:00) [facility] CampusFlqdueeZVRBFYQKVM4837-10-09 18:00:00Few /LPF (01/04/2012 13:00:00) [facility] CampusYjicznmGSVATDIEOV6262-01-46 18:00:003-5 /HPF (01/04/2012 13:00:00) [facility] CampusQbyhgvsIXCTIAMXYJ1961-06-66 18:00:00Negative (01/04/2012 13:00:00) [facility] CampusBepoisjEZEPWNODUP2408-59-02 18:00:000.2[facility] [place] CFHMGMGBAY4654-94-02 18:00:00Negative (01/04/2012 13:00:00) [facility] JRHLZBLPHY5416-59-91 18:00:00* Test Item Value Reference Range Interpretation Comments UA pH (test code = UA pH) 6.0 1 5.0-8.0 N [facility] JaiqdovIHJQJFHOCG0489-77-17 18:00:00* Test Item Value Reference Range Interpretation Comments UA Spec Grav (test code = UA Spec Grav) 1.025 1 N [facility] CampusNpvkklsBDQOGHWXNL2095-04-92 18:00:00Clear (01/04/2012 13:00:00) [facility] CampusVhgtdjxWQMDVIXWWM4958-42-52 18:00:00Yellow *NA*(01/04/2012 13:00:00) [facility] CampusZjvkjakSYTTQXVCSJ9441-11-32 18:00:00Large *ABN*(01/04/2012 13:00:00) [facility] CampusVbflcdqDNBSRFDCHB1514-12-30 18:00:00Negative *NA*(01/04/2012 13:00:00) [facility]GtflhodYIBGLKVWNY0787-17-81 18:00:00Negative *NA*(01/04/2012 13:00:00) [facility] CampusEsaqhrrDHOTBKXTEP5338-27-37 18:00:00>=300 mg/dL *ABN*(01/04/2012 13:00:00) [facility] CampusNwkpcrzDAIXUNKHWO5458-21-75 18:00:93673 mg/dL *ABN*(01/04/2012 13:00:00) [facility] TtnvvodAYTMUQKFK9677-84-61 12:44:0016 [facility] JwvxgokJVBJXGVHA8054-67-91 12:44:000.7[facility] HermannCHEMISTRY 2012-01-04 12:44:83025Ezriwipf JtgnbceWHYJHIYBN9461-48-73 12:44:003.9[facility] MfdbxvnIFQQUJYZP8248-10-18 12:44:009[facility] TueyyhjEBYALVSVL5752-90-97 12:44:00 2.8[facility] DrsvejiNTCBCSVVG6877-82-25 12:44:006.7[facility] HermannCHEMISTRY 2012-01-04 12:44:000.2[facility] IibuexzPYWECNDWY1536-62-02 12:44:000.1[facility] EyntvahXEEADIFXGP4028-58-21 12:44:00<10[facility] QfvnuplOGRABEYSY8253-48-52 12:14:0019[facility] OajsbsySNWPUJUPQ3366-06-69 11:00:0041[facility] [place] HLPKCKNBYC9503-67-37 05:30:14717Yyvmdjdc ZzzxshdMREJLXTNVK7853-11-29 12:44:00 Normal (01/01/2012 06:44:00) [facility] GmtnhujUNOCOKSCBC4444-40-23 12:44:00 Negative (01/01/2012 06:44:00) [facility] FyrcezrEEEDANGLCY5514-07-02 12:44:00 Negative (01/01/2012 06:44:00) [facility] BaiaahfIEPHXCHBKR6753-81-15 12:44:006.2 [facility] PwqqbjaMZTJQJHCYM1468-04-10 12:44:0047.4[facility] HermannIMMUNOLOGY 2012-01-01 12:44:002.94[facility] UpinujzPDLXRGWOHP9376-78-72 12:44:0016.2[facility] GyavhuvMQMFHHGZJV1120-05-04 12:44:0015.2[facility] VqzmvakQOJAZMIBHG9466-00-45 12:44:0016.0[facility] BgwzayvBPVVGYJDUZ5781-26-93 12:44:005.2[facility] [place] KYALBOHURO6853-27-00 12:44:001.00[facility] QzzuybxWNIRJKTBMZ4332-23-41 12:44:00 0.94[facility] KhvluotNNRPZZAFND6921-09-79 12:44:000.99[facility] HermannIMMUNOLOGY 2012-01-01 12:44:000.32[facility] FvtdzklMSQLBOQXNJ3236-22-80 12:44:87847Hrsvoqix IkkvrvyTBFZPVRXTQ3672-12-90 12:44:0039[facility] VvyqvdpQJUWDEPIYL0083-63-72 12:44:00Negative (01/01/2012 06:44:00) [facility] YxifgglPGSAMZMPO8635-76-47 23:28:001.6[facility] WbjxsmeILEDJDWPA0629-01-85 23:28:59802.6[facility] [place] KQEXEDBSE2045-81-80 23:28:02462.8[facility] SbabftfRETJWQWBOH1059-11-13 15:45:00 Negative *NA*(12/31/2011 09:45:00) [facility] HnvjzplNRADVFQVHH8585-95-96 15:45:00Negative *NA*(12/31/2011 09:45:00) [facility] RgacxeaSZOVFXEYIS2108-21-14 15:45:00Negative *NA*(12/31/2011 09:45:00) [facility] BiydalkJKBLARLUAU7846-09-32 03:00:000.97[facility] HufmgtqHLETUSQWHR2071-25-14 03:00:00* Test Item Value Reference Range Interpretation Comments PTT (test code = PTT) 35.6 s 22.9-35.8 N [facility] RpdwwalVAFWPKWTAX7372-94-66 03:00:00* Test Item Value Reference Range Interpretation Comments PT (test code = PT) 12.9 s 12.0-14.7 N [facility] [address] [place] [address] Patient Name: TAI GRANT MR #: [id number] : 1960 Age/Sex: 57/F Req #: [id number] Adm Physician: CIARA MARINO MD Ordered by: CIARA MARINO MD Report #: [id number] Location: MED/SURG2 Room/Bed: [facility] Procedure: [id number] CT/ CT BRAIN WO Exam Date: 03/20/18 [...] 1:38 PM Dictated By: VILLA MCGARRY MD 8138 T ranscribed By: ROBI on 03/20/18 9248 COPY TO: CIARA MARINO MD [facility] ([facility]) [address], [place], [place] [address] Patient Name: TAI GRANT MR #: [id number] : 1960 Age/Sex: 57/F Req #: [id number] Adm Physician: CIARA MARINO MD Ordered by: CIARA MARINO MD Report #: [id number] Location: [facility] Room/Bed: [place] [address] Procedure: [id number] DX/ CHEST SINGLE (PORTABLE) Exam Date: Exam [...] 1:54 PM Dictated By: STEVEN BELTRAN MD 1355 Transcribed By: SHANI LARKIN on 03/19/18 1356 COPY TO: CIARA MARINO MD ANKLE 3 + VIEWS RIGHT [place] [address] [place] [address] Patient Name: TAI GRANT MR #: [id number] : 1960 Age/Sex: 57/F Req #: [id number] Adm Physician: Ordered by: FARAZ BUSTILLO MD Report #: [id number] Location: Room/Bed: Procedure: [id number] DX/ANKLE 3 + VIEWS RIGHT Exam Date: [...] TO: FARAZ BUSTILLO MD CHEST 2 VIEWS [place] [address] Patient Name: TAI GRANT MR #: [id number] : 1960 Age/Sex: 57/F Req #: [id number] Adm Physician: Ordered by: JASPREET JEREZ MD, MD Report #: [id number] Location: [facility] Room/Bed: Procedure: [id number] DX/CHEST 2 VIEWS Exam D ate: Exam [...] TO: JASPREET JEREZ MRI ANKLE RIGHT WO [place] [address] Patient Name: TAI GRANT MR #: [id number] : 1960 Age/Sex: 57/F Req #: [id number] Adm Physician: Ordered by: ADRIENNE VALLES MD Report #: [id number] Location: MRI Room/Bed: Procedure: [id number] MRI/MRI ANKLE RIGHT WO Ex am Date: [...] TO: ADRIENNE VALLES MD CT BRAIN WO [place] [address] Patient Name: TAI GRANT MR #: [id number] : 1960 Age/Sex: 57/F Req #: [id number] Adm Physician: Ordered by: LEONIE REILLY MD Report #: [id number] Location: ER Room/Bed: Procedure: [id number] CT/CT BRAIN WO Exam Date: 12/24 01/09 [...] changes. Parenchyma: No abnormal density. No ac [place] hemorrhage, mass or acute major vascular territorial [...] LEONIE REILLY MD CT CERVICAL SPINE WO [place] [address] Patient Name: TAI GRANT MR #: [id number] : 1960 Age/Sex: 57/F Req #: [id number] Adm Physician: Ordered by: LEONIE REILLY MD Report #: [id number] Location: ER Room/Bed: Procedure: [id number] CT/CT CERVICAL SPINE WO Exam D ate: [...] REILLY MD ANKLE 3 + VIEWS RIGHT [place] [address] Patient Name: TAI GRANT MR #: [id number] : 1960 Age/Sex: 57/F Req #: [id number] Adm Physician: Ordered by: LEONIE REILLY MD Report #: [id number] Location: ER Room/Bed: Procedure: [id number] DX/ANKLE 3 + VIEWS RIGHT Exam Date: [...] LEONIE REILLY MD ANKLE 3+ VIEWS LEFT [place] [address] Patient Name: TAI GRANT MR #: [id number] : 1960 Age/Sex: 57/F Req #: [id number] Adm Physician: Ordered by: VICKY CABALLERO DPVijay Report #: [id number] Location: [facility] Room/Bed: Procedure: [id number] DX/ANKLE 3+ VIEWS LEFT Exa m Date: [...] TO: VICKY CABALLERO DPM CHEST SINGLE (PORTABLE) [place] [address] Patient Name: TAI GRANT MR #: [id number] : 1960 Age/Sex: 57/F Req #: [id number] Adm Physician: CIARA MARINO MD Ordered by: CIARA MARINO MD Report #: [id number] Location: [facility] Room/Bed: [place] [address] Procedure: [id number] DX/ CHEST SINGLE (PORTABLE) Exam Date: 12/23/17 [...] 5:09 AM Dictated By: MARCIA STACK MD 050 Transcribed By: ROBI on 12/23/17508 COPY TO: CIARA MARINO MD CHEST SINGLE (PORTABLE) [facility] [address] [place] [address] Patient Name: TAI GRANT MR #: [id number] : 1960 Age/Sex: 57/F Req #: [id number] Adm Physician: Ordered by: WELLINGTON [employer]ION COMMANDER Report #: [id number] Location: ER Room/Bed: Procedure: [id number] DX/CHEST SINGLE (PORTABLE) E xam Date: 12/22/17 [...] on 12/22/17 1210 COPY TO: [employer] COMMANDER ANKLE 3+ VIEWS LEFT [place] [id number] [place] [address] Patient Name: TAI GRANT MR #: [id number] : 1960 Age/Sex: 57/F Req #: [id number] Adm Physician: Ordered by: VICKY CABALLEROM Report #: [id number] Location: RAD Room/Bed: Procedure: [id number] DX/ANKLE 3+ VIEWS LEFT Exa m Date: [...] VICKY CABALLERO DPM ANKLE 3+ VIEWS LEFT [place] [address] Patient Name: TAI GRANT MR #: [id number] : 1960 Age/Sex: 57/F Req #: [id number] Adm Physician: Ordered by: VICKY CABALLERO DPM Report #: [id number] Location: RAD Room/Bed: Procedure: [id number] DX/ANKLE 3+ VIEWS LEFT Exa m Date: [...] VICKY CARLOS DPM ANKLE 3+ VIEWS LEFT [place] [address] Patient Name: TAI GRANT MR #: [id number] : 1960 Age/Sex: 57/F Req #: [id number] [facility] Physician: Ordered by: VICKY CABALLERO DPM Report #: [id number] Location: [facility] Room/Bed: Procedure: [id number] DX/ANKLE 3+ VIEWS LEFT Exa m Date: [...] TO: VICKY CABALLERO DPM ANKLE COMPLETE BILATERAL [place] [address] Patient Name: TAI GRANT MR #: [id number] : 1960 Age/Sex: 57/F Req #: [id number] Adm Physician: Ordered by: VICKY CABALLERO DPM Report #: [id number] Location: [facility] Room/Bed: Procedure: [id number] DX/ANKLE COMPLETE BILATERAL Exam Date: 08/27/17 Exam [...] TO: VICKY CABALLERO DPVijay CHEST 2 VIEWS [place] [address] Patient Name: TAI GRANT MR #: [id number] : 1960 Age/Sex: 57/F Req #: [id number] Adm Physician: Ordered by: FARAZ BUSTILLO MD Report #: [id number] Location: ER Room/Bed: Procedure: [id number] DX/CHEST 2 VIEWS Exam D ate: 06/21/17 [...] BUSTILLO MD SP LUMBAR, COMPLETE MIN 4VW [place] [address] Patient Name: TAI GRANT MR #: [id number] : 1960 Age/Sex: 57/F Req #: [id number] Adm Physician: Ordered by: MERI LEE, JASPREET Ron MD Report #: [id number] Location: [facility] Room/Bed: Procedure: [id number] DX/SP LUMBAR, COMPLETE M IN 4VW Exam Date: 06/15/17 Exam Time: 0914 REP ORT STATUS: Signed PROCEDURE: SP LUMBAR, COMPLETE MIN 4VW TECHNIQUE: AP , lateral, coned-down lateral and bilateral oblique views lumbar spine. IND ICATION: Low back pain COMPARISON: [facility], CT, CT ABDOMEN /PELVIS W, 06/18/2016, 9:43. Patients [facility], DX, LUMBAR 3 VIEW, , 21:59. FINDINGS: 5 lzp-bay-haooxva lumbar vertebral bodies. Ve rtebral body height [...]
--- NOTE | 2020-06-20 13:23 | NUR ---
PT ARRIVED TO ROOM 202; PT AWAKE, ALERT, NO SIGNS OF DISTRESS.
[2020-06-20 13:25] VITALS: BP 135/67
[2020-06-20 13:41] VITALS: BP 135/67
[2020-06-20 14:00] VITALS: BP 135/67
[2020-06-20] MEDS ORDERED: DEXTROSE 50% SYRINGE 50 ML IV PRN (14:15)
[2020-06-20] MEDS ORDERED: DICYCLOMINE HCL 10 MG CAP PO PRN (14:15)
[2020-06-20] MEDS ORDERED: NEXIUM20 MG PO (14:40)
[2020-06-20] MEDS ORDERED: LYRICA150 MG PO (14:40)
[2020-06-20] MEDS ORDERED: CRESTOR40 MG PO (14:40)
--- NOTE | 2020-06-20 15:02 | NUR ---
CALLED LOPE[facility] SALCEDO TO CLARIFY ORDERS FOR 26 UNITS NOVOLOG ACHS IN ADDITION TO REGULAR INSULIN SLIDING SCALE ACHS. HAY STACKER STATES OKAY TO GIVE BOTH.
[2020-06-20] MEDS: ONDANSETRON HCL INJ 2MG/ML 2ML 2 MG/ML VIAL IV PRN ×2 (15:14→18:59)
[2020-06-20] MEDS: MORPHINE SULFATE INJ 4 MG/ML INJ 1ML IV PRN ×2 (15:14→18:59)
[2020-06-20 15:52] VITALS: BP 122/57
--- NOTE | 2020-06-20 16:12 | NUR ---
RECEIVED CALLBACK FROM DR. COPE'S FORENSIC CHEMIST WHO STATES DR. ZIMMERMAN WILL SEE THE PATIENT FOR THEM.
[2020-06-20] MEDS ORDERED: INSULIN ASPART 70/30 100 UNITS/ML VIAL SC SCH (16:30)
[2020-06-20] MEDS: INSULIN REGULAR, HUMAN 100 UNIT/1 ML 3ML VIAL SQ SCH ×2 (16:30→22:41)
--- NOTE | 2020-06-20 17:00 | NUR ---
dressing placed to right foot; pt tolerated well.
[2020-06-20] MEDS: PREGABALIN 75 MG CAP PO SCH ×2 (18:51→21:54)
[2020-06-20] MEDS: CALCIUM ACETATE 667 MG GELCAP PO SCH (18:52)
[2020-06-20] MEDS: ROPINIROLE HCL 0.25 MG TAB PO SCH ×2 (18:52→21:55)
[2020-06-20] MEDS: SEVELAMER CARBONATE 800 MG TAB PO SCH (18:52)
[2020-06-20] MEDS: CARVEDILOL 3.125 MG TAB PO SCH (18:53)
--- NOTE | 2020-06-20 19:30 | NUR ---
PT IS ALERT AND ORINETED X3. HX TENDON SURGERY IN RT HAND STITCHES IN PLACE RT HAND - DRESSING ON.TELE ON. DIALYSIS TO BE DONE m,w,f.dAY RN TO CALL DIALYSIS NURSE IN AM.KAR AV FISTULA CONNER [place] AND BRIAN. RT FOOT WOUND CULTURE COLLECTED BY DAY RN. SMALL AMOUNT OF PUS NOTED. WOUND CONSULT ORDERED.RT FOOT ELEVATED ON 2 PILLOWS.CALL LIGHT WITHIN REACH. BED IN LOW POSITION.
[2020-06-20 20:00] VITALS: BP 115/50
[2020-06-20] MEDS: DEPAKOTE ER 500MG TAB(ONCE DAILY) PO SCH (21:54)
[2020-06-20] MEDS: ATORVASTATIN 40 MG TAB PO SCH (21:54)
--- NOTE | 2020-06-20 22:17 | History and Physical ---
PRIMARY CARE PHYSICIAN: Dr. Jaspreet Patten. CAPITAL MARKETS SPECIALIST: Fran Young MD CHIEF COMPLAINT: Right lower extremity pain and discharge. HISTORY OF PRESENT ILLNESS: This is a 60-year-old female with past medical history of hypertension, diabetes, UTI, ESRD, sleep apnea, neuropathy, and fibromyalgia with history of Achilles tear repair in 2018, presented to the ER with complaints of right lower extremity around the ankle area discharge. She reports yesterday as she was getting off the shower, noticed yellow discharge from her right ankle area. She continued to drain and overnight started throbbing. She denies any fever, chills, nausea, vomiting, bleeding, or recent trauma to the leg. She reports had an infection on that Achilles and had underwent prolonged IV antibiotics and rehabilitation in the past year. She reports this is something new, has not had any trauma to the leg. In the ER, x-ray showed mild diffuse soft tissue swelling with focal fullness and region of the distal Achilles tendon, which may represent sequela of prior trauma or surgery. However, could not exclude an acute Achilles tendon injury and appropriate clinical setting. No acute osseous abnormalities. SURGICAL HISTORY: 1. Cholecystectomy. 2. Appendectomy. 3. Bariatric surgery. 4. AV fistula at the left upper extremity. 5. Right Achilles tear repair. 6. Carpal tunnel, both hands. FAMILY MEDICAL HISTORY: She reports both mother and father had heart disease and siblings with diabetes. SOCIAL HISTORY: She denies any tobacco, alcohol, or illicit drug use. Lives with her spouse. ALLERGIES: SHE IS ALLERGIC TO NIFEDIPINE AND VANCOMYCIN. REVIEW OF SYSTEMS: A 12-system reviewed and negative except as listed in HPI. PHYSICAL EXAMINATION: VITAL SIGNS: Temperature 98.4, pulse is 78, respirations 19, blood pressure 135/67, and pulse ox 100% on room air. GENERAL: No acute distress. HEENT: Normocephalic, atraumatic. NECK: Supple. LUNGS: Clear to auscultation. CARDIOVASCULAR: Regular rate and rhythm. GI: Soft and nontender. NEUROLOGIC: Alert, awake, and oriented x3. MUSCULOSKELETAL: Moves all extremities. No edema. SKIN: Right posterior to ankle abscess with purulent discharge. PSYCH: Calm. LABORATORY DATA: WBC 4.30, hemoglobin 9.9, hematocrit 32.4, and platelet 171. Sodium 142, potassium 4.0, anion gap 20, BUN 21, creatinine 4.54, estimated GFR is 10, glucose 82, lactic acid 1.9, AST 25, ALT 21, alkaline phosphate 133, albumin 3.0, globulin 4.1. Coronavirus PCR pending. Blood culture and wound culture pending. IMAGING: Right ankle shows mild diffuse soft tissue swelling with focal fullness in the region of the distal Achilles tendon may represent sequela of prior trauma or surgery, however, cannot exclude Achilles tendon injury in appropriate clinical setting. No acute osseous abnormalities. IMPRESSION: 1. Right ankle cellulitis. We will continue with cefepime. Blood culture and urine culture sent. 2. Hypertension. We will resume on carvedilol. 3. Diabetes. We will continue on sliding scale insulin. 4. End-stage renal disease, on dialysis. Dr. Young her slitter scorer has been consulted. 5. High cholesterol, on statin. 6. Neuropathy and fibromyalgia. Pain management as needed with hydrocodone. 7. Gastroesophageal reflux disease. Resume PPI. 8. Deep venous thrombosis prophylaxis. Heparin subcu. PLAN: To continue IV antibiotics and pain management. Wound Care has been consulted, and await on wound cultures. Dictated by TAMERA Sigala Samuel Marino MD MY/MODL /[id number]
[2020-06-21] VITALS (8 sets, daily range): BP systolic 102–126; BP diastolic 51–66
[2020-06-21] MEDS: ONDANSETRON HCL INJ 2MG/ML 2ML 2 MG/ML VIAL IV PRN (01:04)
[2020-06-21] MEDS: MORPHINE SULFATE INJ 4 MG/ML INJ 1ML IV PRN ×2 (01:17→05:32)
--- NOTE | 2020-06-21 02:48 | Consultation ---
DATE OF CONSULTATION: 06/20/2020 Nephrology Consult REASON FOR CONSULTATION: End-stage renal disease, on HD management. HISTORY OF PRESENT ILLNESS: A 60-year-old female with ESRD, on dialysis; diabetes, uncontrolled; comes in with worsening right heel wound infection. The patient was noted to have significant amount of pus. In fact, she reports that in the ED that the wound actually has significant amount of pus and discharged. Denies any chest pain, palpitation, nausea, or vomiting. She reports dialysis with HD. I have been consulted for Nephrology management. She is currently doing well. She is not hypoxic. She is on room air. She is tolerating diet well. Electrolytes have been stable. REVIEW OF SYSTEMS: Pertinent positive: Right heel wound infection. The rest of 14-point review of systems has been reviewed with the patient and are negative. ALLERGIES: NIFEDIPINE AND VANCOMYCIN. HOME MEDICATIONS: Requip, midodrine, nortriptyline, promethazine, Levemir, and FAMILY HISTORY: Hypertension, diabetes. SOCIAL HISTORY: No drugs. No alcohol. Does not smoke. Good social support. PHYSICAL EXAMINATION: VITAL SIGNS: Temperature is 97.7, pulse 87, respiratory rate is 18, blood pressure 115/64, pulse ox 97% on room air. GENERAL: Not in acute distress. Alert and oriented x3. Cooperative on examination. HEENT: Head is normocephalic and atraumatic. Eyes; pupils are equal, round, and reactive to light bilaterally. Extraocular movements are intact bilaterally. Throat, no evidence of any erythema or exudates in the posterior pharynx. Has poor dentition. NECK: Supple. Good range of motion. PULMONARY: Clear to auscultation bilaterally. No wheezing, no rales, no rhonchi, no crackles appreciated. CARDIOVASCULAR: Positive S1 and S2. No murmurs, rubs, or gallops appreciated. NEUROLOGICAL: Cranial nerves II through XII grossly intact. No evidence of any neurological deficits on exam. SKIN: Intact. Warm to touch. Good cap refill. PSYCHIATRIC: Normal affect and mood. EXTREMITIES: No edema. Good range of motion throughout. LABORATORY DATA: Labs show white count 4.3, hemoglobin 9.9, hematocrit is 32, and platelets of 171. Chemistries; sodium 142, potassium 4, chloride 98, bicarb 20, anion gap of 20, BUN is 21, creatinine 4.5, glucose is 82. LFTs within normal range. Coronavirus is pending. Blood and urine cultures pending. IMAGING STUDIES: Ankle x-ray shows mild diffuse soft tissue swelling with focal fullness in the region of the distal Achilles tendon. IMPRESSION: 1. Right lower extremity soft tissue secondary to Achilles tendon. 2. End-stage renal disease, on HD . 3. Anemia. PLAN: At this time, the patient is doing well. Vital signs stable. Electrolytes are stable. No urgent need for hemodialysis. Get a.m. labs. HD scheduled for tomorrow. Plan of care discussed with the patient and nursing staff. MD RADHA Peterson/MODL /[id number]
[2020-06-21] MEDS ORDERED: SODIUM CHLORIDE 0.9% 250ML 250 ML ONE (05:32)
[2020-06-21 06:08] LABS: BASOPHILS % 0.2 % (0.0-1.0); EOSINOPHILS # (AUTO) 0.1 (0.0-0.4); EOSINOPHILS % 1.4 % (0.0-6.0); HEMATOCRIT 29.2 % (34.2-44.1); HEMOGLOBIN 8.7 g/dL (12.0-16.0); LYMPHOCYTES # (AUTO) 0.7 (1.0-3.2); LYMPHOCYTES % 15.9 % (18.0-39.1); MEAN CORPUSCULAR HEMOGLOBIN 30.7 pg (28-32); MEAN CORPUSCULAR HGB CONC 29.8 g/dL (31-35); MEAN CORPUSCULAR VOLUME 103.2 fL (81-99); MONOCYTES # (AUTO) 0.5 (0.2-0.8); MONOCYTES % 11.1 % (4.4-11.3); NEUTROPHILS % 68.9 % (38.7-80.0); PLATELET COUNT 148 x10e3/uL (140-360); RED BLOOD COUNT 2.83 x10e6/uL (3.6-5.1); RED CELL DISTRIBUTION WIDTH 16.3 % (11.7-14.4)
[2020-06-21 06:30] LABS: ALBUMIN 2.5 g/dL (3.5-5.0); ALBUMIN/GLOBULIN RATIO 0.8 (0.8-2.0); ANION GAP 21.2 mmol/L (8-16); CALCIUM 7.7 mg/dL (8.4-10.2); CREATININE, SERUM 5.42 mg/dL (0.57-1.11); POTASSIUM 5.2 mmol/L (3.5-5.1)
--- NOTE | 2020-06-21 07:00 | NUR ---
RECEIVED BEDSIDE SHIFT REPORT FROM THE OFF GOING NIGHT NURSE. PATIENT IN STABLE CONDITION, NO S/S OF DISTRESS NOTED. TELEMETRY APPLIED. IV SITES ASYMPTOMATIC AND PATENT, TRANSPARENT DRESSING C/D/I. BED ALARM APPLIED. BED IN LOWEST POSITION AND LOCKED. CALL LIGHT WITHIN REACH.
[2020-06-21] MEDS: INSULIN REGULAR, HUMAN 100 UNIT/1 ML 3ML VIAL SQ SCH ×4 (07:30→20:12)
[2020-06-21] MEDS: HEPARIN SOD (PORCINE) 5,000 UNIT/ML VIAL SC SCH ×2 (09:00→21:35)
[2020-06-21] MEDS: CALCIUM ACETATE 667 MG GELCAP PO SCH ×3 (09:11→16:54)
[2020-06-21] MEDS: SEVELAMER CARBONATE 800 MG TAB PO SCH ×3 (09:12→16:54)
[2020-06-21] MEDS: CARVEDILOL 3.125 MG TAB PO SCH ×2 (09:13→16:53)
[2020-06-21] MEDS: PANTOPRAZOLE SOD 40 MG TABEC PO SCH (09:13)
[2020-06-21] MEDS: PREGABALIN 75 MG CAP PO SCH (09:13)
[2020-06-21] MEDS: ROPINIROLE HCL 0.25 MG TAB PO SCH ×3 (09:13→20:25)
[2020-06-21] MEDS: CEFEPIME 1GM/NS 0.9% 50 ML 50 ML IV SCH (09:14)
[2020-06-21] MEDS ORDERED: LIDOCAINE HCL 1% LOCAL INJ 20 ML VIAL INJ ONE (11:00)
--- NOTE | 2020-06-21 12:09 | Operative Report ---
DATE OF PROCEDURE: SURGEON: Brittani Sherman MD PROCEDURE: Incision and drainage of the abscess. HISTORY OF PRESENT ILLNESS: A 60-year-old female patient with history of end-stage renal disease, diabetes mellitus, admitted with abscess to the right medial ankle. After explaining the procedure and obtaining consent, I injected 6 mL of 1% lidocaine. After proper anesthetic, used #10 blade, did incision and drainage of the abscess, and 3 mL of pus drained. Wound irrigated with normal saline and iodine, packed with a quarter-inch iodoform gauze, 4 x 4, Kerlix, and tape. The patient tolerated the procedure well. There was minimal bleeding controlled with pressure. Postprocedure wound measures 4.5 x 0.2 x 1.5 cm. Brittani Sherman MD TG/MODL /[id number]
--- NOTE | 2020-06-21 12:50 | Consultation ---
DATE OF CONSULTATION: Wound Consultation HISTORY OF PRESENT ILLNESS: A 60-year-old female patient, admitted with a right ankle abscess noticed two days ago when she was getting after shower. The patient had previous right Achilles tear and repair two years back. The patient has multiple comorbid conditions including diabetes, hypertension, end-stage renal disease, sleep apnea. Exam revealed an abscess draining pus on the right medial ankle close to the surgical area, did incision and drainage and packing with iodoform gauze done. Recommend MRI to see the extension of the abscess to rule out septic arthritis. PAST MEDICAL HISTORY: End-stage renal disease, diabetes, hypertension, obesity, sleep apnea. PAST SURGICAL HISTORY: Right Achilles tear repair two years back, had a recent carpal tunnel surgery. The patient still has sutures on the right hand, AV fistula repair left upper extremity. ALLERGIES: NIFEDIPINE, VANCOMYCIN. PERSONAL HISTORY: No history of smoking, alcohol. REVIEW OF SYSTEMS: All other systems reviewed, no complaints reported. PHYSICAL EXAMINATION: VITAL SIGNS: Blood pressure 115/50, pulse of 87, temperature 96.7. HEENT: Normal. NECK: No JVD. LUNGS: Clear. CVS: Normal. ABDOMEN: Soft. Bowel sounds normal. EXTREMITIES: Lower extremities, right medial ankle, the patient has an abscess, incision and drainage done. ASSESSMENT: Right medial ankle abscess, rule out septic arthritis. PLAN: Incision and drainage done. Packed with quarter-inch iodoform gauze. Recommend MRI right ankle without contrast. MD ESTEVAN Grey/UGO /[id number]
[2020-06-21] MEDS ORDERED: PREGABALIN 75 MG CAP PO PRN (14:15)
--- NOTE | 2020-06-21 14:20 | NUR ---
THE PATIENT WAS LETHARGIC, BLOOD SUGAR WAS CHECKED 82 GAVE DEXTROSE. WILL RECHECK THE BLOOD SUGAR.
--- NOTE | 2020-06-21 15:00 | NUR ---
NOTIFIED DENISSE MORTENSEN NP ABOUT THE PATIENT BEING LETHARGIC AND ABOUT THE DROP IN BLOOD SUGAR. DENISSE MORTENSEN NP ORDERED A CT OF THE HEAD AFTER DIALYSIS IF THE PATIENT IS STILL LETHARGIC.
--- NOTE | 2020-06-21 15:20 | NUR ---
BLOOD SUGAR RECHECKED -143.
[2020-06-21] MEDS: MIDODRINE HCL 5 MG TABLET PO PRN (16:06)
--- NOTE | 2020-06-21 17:05 | Progress Note ---
DATE: 06/21/2020 CONSULTANTS: 1. Dr. Young, dielectric testing machine operator. 2. Dr. Manrique, wound care. SUBJECTIVE: The patient is seen lethargic, sitting in bed, oriented, very lethargic. Blood sugar was 82, would get dextrose. Status post bedside debridement this morning per Dr. Manrique. OBJECTIVE: VITAL SIGNS: Temperature 98.0, pulse of 75, respirations 20, blood pressure 121/63, pulse ox is 96% on room air. GENERAL: Lethargic. HEENT: Normocephalic, atraumatic. NECK: Supple. LUNGS: Clear to auscultation. CARDIOVASCULAR: Regular rate and rhythm. GI: Soft and nontender. NEUROLOGIC: Oriented x3, but sleepy. MUSCULOSKELETAL: Moves all extremities. No edema. SKIN: Right angle abscess. PSYCH: Calm. LABORATORY DATA: WBC 4.41, hemoglobin 8.7, hematocrit 29.2, platelets 148. Sodium 139, potassium 5.2, BUN 34, creatinine 5.42, estimated GFR is 8, calcium 7.1. IMPRESSION: 1. Right ankle cellulitis. Cultures sent, we will continue on cefepime. Wound Care was consulted and status post bedside debridement. Packed and dressing intact. MRI of the right foot pending. 2. Hypertension. We will resume carvedilol. 3. Diabetes. Continue sliding scale insulin. 4. End-stage renal disease, on dialysis. Dialysis per Dr. Young, her dielectric testing machine operator. 5. High cholesterol. On statin. 6. Neuropathy and fibromyalgia. Pain management as needed. 7. . We will defer to Renal. 8. Gastroesophageal reflux disease. Resume PPI. 9. Deep venous thrombosis prophylaxis. Heparin subcu. PLAN: Continue IV antibiotics, status post I and D today. . Dictated by TAMERA Sigala Samuel Marino MD MY/MODL /[id number]
--- NOTE | 2020-06-21 18:42 | NUR ---
NOTIFIED DR. ROSENTHAL THAT THE PATIENT WAS NOT ABLE TO GO GET HER MRI OF THE FOOT TODAY. THAT SHE WILL BE SEEN ON WEDNESDAY PER MRI. STATED OK.
--- NOTE | 2020-06-21 19:05 | NUR ---
BEDSIDE SHIFT REPORT RECEIVED. PATIENT IS LETHARGIC. PATIENT IS GETTING DIALYSIS AT THIS TIME. MD AWARE. CT BRAIN TO BE DONE AFTER DIALYSIS. TELE IN PLACE NOTED. BED IS LOW AND LOCKED. SIDE RAILS X2. BED ALARM IS ON. CONTINUE TO MONITOR CLOSELY
--- NOTE | 2020-06-21 19:42 | NUR ---
COMPLETED BEDSIDE SHIFT REPORT AND ROUNDING WITH ONCOMING NIGHT NURSE.PATIENT IS RECEIVING DIALYSIS, PATIENT IS LETHARGIC. RESPIRATIONS EVEN AND NON-LABORED. VITALS ARE STABLE. TELEMETRY APPLIED. IV SITES ASYMPTOMATIC AND PATENT, TRANSPARENT DRESSING C/D/I. BED ALARM APPLIED. BED IN LOWEST POSITION AND LOCKED. CALL LIGHT WITHIN REACH.
--- NOTE | 2020-06-21 20:20 | NUR ---
DIALYSIS IS DONE. PATIENT IS ALERT AND ORIENTED AT THIS TIME, RESTING IN BED. RESP EVEN AND UNLABORED. NO ACUTE DISTRESS NOTED. TELE IN PLACE NOTED. EDUCATED PT ABOUT FALL PRECAUTIONS. PT VERBALIZED UNDERSTANDING. CALL LIGHT WITHIN EASY REACH. INSTRUCTED PT TO USE CALL LIGHT FOR ALL THE NEEDS. BED IS LOW AND LOCKED. SIDE RAILS X2. BED ALARM IS ON. PT DENIES NEEDS AT THIS TIME. CONTINUE TO MONITOR CLOSELY
[2020-06-21] MEDS: ATORVASTATIN 40 MG TAB PO SCH (20:25)
[2020-06-21] MEDS: DEPAKOTE ER 500MG TAB(ONCE DAILY) PO SCH (20:25)
--- NOTE | 2020-06-21 21:37 | Diagnostic Imaging Report ---
EXAMINATION: Head CT without contrast. HISTORY:Altered mental status. COMPARISON:CT brain from 09/12/2019. TECHNIQUE: Multidetector axial images were obtained from the foramen magnum to the vertex without contrast. The images were reconstructed using brain and bone algorithms. Thin section brain images were reformatted into coronal and sagittal planes. Dose modulation, iterative reconstruction, and/or weight based adjustment of the mA/kV was utilized to reduce the radiation dose to as low as reasonably achievable. Intravenous contrast: None IMAGE QUALITY: Suboptimal evaluation particularly at the level of skull base and posterior fossa structures due to streak artifacts. FINDINGS: Skull/scalp: No lytic or blastic. lesions. No surgical changes. Parenchyma: No abnormal density. No acute hemorrhage, mass or acute major vascular territorial infarct. Arteries: No density suggestive of thrombosis. Mild atherosclerosis in bilateral carotid siphon. Dural sinuses: No abnormal density suggestive of thrombosis. Ventricles: No hydrocephalus or displacement. Extra-axial spaces: No abnormal density. Brain volume: Normal for age. Craniocervical junction: No mass, Chiari malformation, or basilar invagination. Sella: No mass. Paranasal/mastoid sinuses: Imaged portions unremarkable. IMPRESSION: No acute intracranial abnormality. No change since CT brain from 09/12/2019. Signed by: Dr. aSkina Mena M.D. on 06/21/2020 9:34 PM
[2020-06-22] VITALS (8 sets, daily range): BP systolic 99–128; BP diastolic 51–89
--- NOTE | 2020-06-22 03:17 | Progress Note ---
DATE: 06/21/2020 SUBJECTIVE: The patient had HD today . She also underwent washout of the right Achilles tendon. PHYSICAL EXAMINATION: VITAL SIGNS: Temperature is 98.1, pulse 80, respirations 14, blood pressure 114/61, pulse ox 99% on room air. GENERAL: Not in acute distress. Alert and oriented x3. Cooperative on examination. HEENT: Head; normocephalic, atraumatic. Eyes; pupils are equal, round, and reactive to light bilaterally. PULMONARY: Clear to auscultation bilaterally. CARDIOVASCULAR: No murmurs, rubs, or gallops appreciated. ABDOMEN: Soft, nondistended, and nontender to palpation. Bowel sounds present. MUSCULOSKELETAL: Strength is 5/5 throughout. No evidence of any muscle deficits on examination. NEUROLOGIC: No evidence of any neurological deficits on exam. SKIN: Intact. Warm to touch. Good cap refill. PSYCHIATRIC: Normal affect and mood. EXTREMITIES: No edema. Good range of motion throughout. LABORATORY DATA: Show CBC is stable. Chemistry reviewed. MICROBIOLOGY: Blood cultures pending. IMAGING: Shows CT brain negative. IMPRESSION: 1. End-stage renal disease, on hemodialysis . 2. Anemia of end-stage renal disease. PLAN: This patient received a 2K bath 2.5 calcium . Continue same plan of care and monitor very closely. Get a.m. labs. MD RADHA Peterson/RENEEL /[id number]
[2020-06-22 06:07] LABS: BASOPHILS % 0.3 % (0.0-1.0); EOSINOPHILS % 0.6 % (0.0-6.0); HEMATOCRIT 29.1 % (34.2-44.1); LYMPHOCYTES # (AUTO) 0.7 (1.0-3.2); LYMPHOCYTES % 10.2 % (18.0-39.1); MEAN CORPUSCULAR HEMOGLOBIN 33.5 pg (28-32); MEAN CORPUSCULAR HGB CONC 30.9 g/dL (31-35); MEAN CORPUSCULAR VOLUME 108.2 fL (81-99); MONOCYTES # (AUTO) 0.7 (0.2-0.8); MONOCYTES % 9.4 % (4.4-11.3); NEUTROPHILS # (AUTO) 5.4 (2.1-6.9); PLATELET COUNT 160 x10e3/uL (140-360); RED BLOOD COUNT 2.69 x10e6/uL (3.6-5.1); RED CELL DISTRIBUTION WIDTH 17.2 % (11.7-14.4)
[2020-06-22] MEDS: HYDROCODONE/APAP 10MG-325MG TAB PO PRN ×2 (06:12→07:20)
[2020-06-22 06:34] LABS: ANION GAP 14.9 mmol/L (8-16); CALCIUM 8.2 mg/dL (8.4-10.2); CREATININE, SERUM 3.43 mg/dL (0.57-1.11); POTASSIUM 4.9 mmol/L (3.5-5.1)
[2020-06-22] MEDS: INSULIN REGULAR, HUMAN 100 UNIT/1 ML 3ML VIAL SQ SCH ×4 (07:30→21:25)
[2020-06-22] MEDS: SEVELAMER CARBONATE 800 MG TAB PO SCH ×3 (10:05→17:11)
[2020-06-22] MEDS: PANTOPRAZOLE SOD 40 MG TABEC PO SCH (10:05)
[2020-06-22] MEDS: ROPINIROLE HCL 0.25 MG TAB PO SCH ×3 (10:05→21:22)
[2020-06-22] MEDS: HEPARIN SOD (PORCINE) 5,000 UNIT/ML VIAL SC SCH ×2 (10:05→21:26)
[2020-06-22] MEDS: CARVEDILOL 3.125 MG TAB PO SCH ×2 (10:05→17:11)
[2020-06-22] MEDS: CALCIUM ACETATE 667 MG GELCAP PO SCH ×3 (10:05→17:11)
[2020-06-22] MEDS: CEFEPIME 1GM/NS 0.9% 50 ML 50 ML IV SCH (10:06)
[2020-06-22] MEDS ORDERED: SODIUM CHLORIDE 0.9% 250ML 250 ML ONE (10:08)
[2020-06-22] MEDS ORDERED: HYDROCODONE/APAP 10MG-325MG TAB PO PRN (14:30)
[2020-06-22] MEDS ORDERED: MORPHINE SULFATE 2 MG/ML SYR 1ML IV ONE (14:45)
--- NOTE | 2020-06-22 18:25 | Progress Note ---
DATE: 06/22/2020 CONSULTANTS: 1. Dr. Young, heater engineer helper. 2. Dr. Manrique, Wound Care. SUBJECTIVE: The patient is a little more awake today, but still somewhat lethargic. She is crying due to right lower extremity pain. OBJECTIVE: VITAL SIGNS: Temperature 97.6, pulse is 73, respirations 20, blood pressure 99/58, pulse ox is 98% on room air. GENERAL: Lethargic, but is crying of pain. HEENT: Normocephalic, atraumatic. NECK: Supple. LUNGS: Clear to auscultation. CARDIOVASCULAR: Regular rate and rhythm. GI: Soft and nontender. NEUROLOGIC: Alert, awake, oriented x3, but a little lethargic. MUSCULOSKELETAL: Moves all extremities. No edema. Complains of right lower extremity pain. PSYCH: Crying. LABORATORY DATA: WBC 6.88, hemoglobin 9.0, hematocrit 29.1, platelet 160. Sodium 139, potassium 4.9, CO2 of 28, BUN is 15, creatinine 3.43, estimated GFR is 14, glucose 104, calcium 8.2. IMAGING DATA: CT brain negative for acute process. IMPRESSION: 1. Right ankle cellulitis. Cultures negative so far, status post bedside debridement, continue cefepime and pending MRI of right foot. 2. Hypertension. We will resume carvedilol as blood pressure allows. 3. Diabetes. Continue sliding scale insulin. 4. End-stage renal disease. On dialysis Wednesday, Wednesday, Wednesday. Manager Rn on the case. 5. High cholesterol. On statin. 6. Neuropathy and fibromyalgia. Pain management as needed, but we will be careful as she is lethargic. 7. Gastroesophageal reflux disease. Resume PPI. 8. Deep venous thrombosis prophylaxis. Heparin subcu. PLAN: Continue IV antibiotics and wound care daily. Pending MRI of the right foot for further evaluation. Dictated by TAMERA Sigala Samuel Marino MD MY/MODL /[id number]
--- NOTE | 2020-06-22 19:10 | NUR ---
BEDSIDE SHIFT REPORT RECEIVED. PATIENT IS AAOX3, RESTING IN BED. RESP EVEN AND UNLABORED. NO ACUTE DISTRESS NOTED. EDUCATED PT ABOUT FALL PRECAUTIONS. PT VERBALIZED UNDERSTANDING. CALL LIGHT WITHIN EASY REACH. INSTRUCTED PT TO USE CALL LIGHT FOR ALL THE NEEDS. BED IS LOW AND LOCKED. SIDE RAILS X2. BED ALARM IS ON. PT DENIES NEEDS AT THIS TIME. CONTINUE TO MONITOR CLOSELY
[2020-06-22] MEDS: ATORVASTATIN 40 MG TAB PO SCH (21:22)
[2020-06-22] MEDS: DEPAKOTE ER 500MG TAB(ONCE DAILY) PO SCH (21:22)
[2020-06-22] MEDS: MORPHINE SULFATE 2 MG/ML SYR 1ML IV PRN (21:45)
[2020-06-23] VITALS (8 sets, daily range): BP systolic 102–128; BP diastolic 49–75
--- NOTE | 2020-06-23 00:31 | Progress Note ---
DATE: 06/22/2020 Nephrology Progress Note SUBJECTIVE: The patient is doing well today with no complaints. HD was performed yesterday. PHYSICAL EXAMINATION: VITAL SIGNS: Afebrile, normotensive. Respiratory rate is good. GENERAL: Not in acute distress. Alert and oriented x3. Cooperative on examination. PULMONARY: Clear to auscultation bilaterally. No wheezing, no rales, no rhonchi, no crackles appreciated. CARDIOVASCULAR: Positive S1 and S2. No murmurs, rubs, or gallops appreciated. ABDOMEN: Soft, nondistended, and nontender to palpation. Bowel sounds present. MUSCULOSKELETAL: Strength is 5/5 throughout. No evidence of any muscle deficits on examination. No weakness appreciated. NEUROLOGIC: Cranial nerve II through XII grossly intact. No evidence of any neurological deficits on exam. SKIN: Intact. Warm to touch. Good cap refill. PSYCHIATRIC: Normal affect and mood. LABORATORY DATA: Reviewed, stable IMPRESSION: 1. End-stage renal disease, on hemodialysis. 2. Anemia of end-stage renal disease. 3. Right foot Achilles wound infection. PLAN: At this time, from a renal standpoint, electrolytes are stable. Get a.m. labs. Dialysis will be scheduled for Wednesday. Continue same plan of care and monitor closely. Plan of care discussed with patient and nursing staff. MD RADHA Peterson/MODL /[id number]
[2020-06-23] MEDS: INSULIN REGULAR, HUMAN 100 UNIT/1 ML 3ML VIAL SQ SCH ×4 (07:30→20:50)
[2020-06-23] MEDS: ROPINIROLE HCL 0.25 MG TAB PO SCH ×3 (08:24→20:41)
[2020-06-23] MEDS: SEVELAMER CARBONATE 800 MG TAB PO SCH ×3 (08:24→17:32)
[2020-06-23] MEDS: PANTOPRAZOLE SOD 40 MG TABEC PO SCH (08:24)
[2020-06-23] MEDS: MORPHINE SULFATE 2 MG/ML SYR 1ML IV PRN ×2 (08:24→15:55)
[2020-06-23] MEDS: CALCIUM ACETATE 667 MG GELCAP PO SCH ×3 (08:24→17:32)
[2020-06-23] MEDS: CARVEDILOL 3.125 MG TAB PO SCH ×2 (08:25→17:32)
[2020-06-23] MEDS: HEPARIN SOD (PORCINE) 5,000 UNIT/ML VIAL SC SCH ×2 (08:25→20:50)
[2020-06-23] MEDS: CEFEPIME 1GM/NS 0.9% 50 ML 50 ML IV SCH (10:53)
[2020-06-23] MEDS: ONDANSETRON HCL INJ 2MG/ML 2ML 2 MG/ML VIAL IV PRN (11:47)
--- NOTE | 2020-06-23 13:27 | Progress Note ---
DATE: 06/23/2020 CONSULTANTS: 1. Dr. Young, radio interference expert. 2. Dr. Manrique, Wound Care. SUBJECTIVE: The patient is more awake and alert today. She reports has history of narcolepsy, which makes her lethargic at times. Reports right lower extremity pain is improved. OBJECTIVE: VITAL SIGNS: Temperature is 98.2, pulse is 84, respirations 20, blood pressure 105/60, pulse ox 96% on room air. GENERAL: No acute distress. HEENT: Normocephalic atraumatic. NECK: Supple. LUNGS: Clear to auscultation. CARDIOVASCULAR: Regular rate and rhythm. GI: Soft and nontender. NEUROLOGIC: Alert, awake, oriented x3. MUSCULOSKELETAL: Moves all extremities. No edema. Right lower extremity dressing intact. PSYCH: Calm. LABORATORY DATA: WBC 6.8, hemoglobin 9.0, hematocrit 29.1, platelets 160. Blood culture negative so far. Wound culture negative. IMPRESSION: 1. Right ankle cellulitis. Cultures negative so far, status post bedside debridement. We will continue on cefepime and await on MRI of the right foot tomorrow. 2. Hypertension. We will continue on carvedilol as blood pressure allows. 3. Diabetes. Continue sliding scale insulin. 4. End-stage renal disease, on dialysis Wednesday, Wednesday, Wednesday. Defer to Nephrology. 5. High cholesterol. On statin. 6. Neuropathy and fibromyalgia. Pain management as needed. 7. Gastroesophageal reflux disease. On PPI. 8. Deep vein thrombosis prophylaxis. Heparin subcu b.i.d. PLAN: To continue IV antibiotics and wound care, MRI of right foot to be done tomorrow for further evaluation. Dictated by TAMERA Sigala Samuel Marino MD MY/MODL /[id number]
--- NOTE | 2020-06-23 20:08 | Progress Note ---
DATE: 06/23/2020 Nephrology Progress Note SUBJECTIVE: The patient is doing well today with no complaints. She is scheduled for dialysis tomorrow as per her schedule. PHYSICAL EXAMINATION: VITAL SIGNS: Temperature is 98, pulse 69, respiratory rate is 22, blood pressure 120/61, and pulse ox 100% on room air. GENERAL: Not in acute distress. Alert and oriented x3. Cooperative on examination. HEENT: Head; normocephalic, atraumatic. Eyes; pupils are equal, round, and reactive to light bilaterally. PULMONARY: Clear to auscultation bilaterally. No wheezing, no rales, no rhonchi, no crackles appreciated. CARDIOVASCULAR: Positive S1 and S2. No murmurs, rubs, or gallops appreciated. ABDOMEN: Soft, nondistended, and nontender to palpation. Bowel sounds present. MUSCULOSKELETAL: Strength is 5/5 throughout. No evidence of any muscle deficits on examination. SKIN: Intact. Warm to touch. Good cap refill. PSYCHIATRIC: Normal affect and mood. LABORATORY FINDINGS: Show CBC stable. Chemistry nothing today. MICROBIOLOGY: Blood cultures, no growth to date. Wound culture shows no growth. IMAGING STUDIES: None. IMPRESSION: 1. End-stage renal disease, on hemodialysis, Wednesday, Wednesday, and Wednesday. 2. Anemia of end-stage renal disease. 3. Right foot Achilles wound infection. 4. Secondary hyperparathyroidism. PLAN: At this time, I will go ahead and get morning labs including phosphorus and intact PTH levels. Also get iron saturation. Scheduled for hemodialysis tomorrow. Discussed plan of care with nursing staff. MD RADHA Peterson/MODL /[id number]
[2020-06-23] MEDS: DEPAKOTE ER 500MG TAB(ONCE DAILY) PO SCH (20:41)
[2020-06-23] MEDS: ATORVASTATIN 40 MG TAB PO SCH (20:41)
[2020-06-24] VITALS (8 sets, daily range): BP systolic 97–126; BP diastolic 47–72
[2020-06-24] MEDS: MORPHINE SULFATE 2 MG/ML SYR 1ML IV PRN ×4 (01:05→21:03)
--- NOTE | 2020-06-24 07:10 | NUR ---
RCD PT AT BED PT IS ALERT AND ORIENTED RESTING ON BED IV PATENT BY SALINE FLUSH ,BED LOW AND LOCKED CALL LIGHT IN REACH
[2020-06-24] MEDS: INSULIN REGULAR, HUMAN 100 UNIT/1 ML 3ML VIAL SQ SCH ×4 (07:30→19:32)
[2020-06-24] MEDS: CALCIUM ACETATE 667 MG GELCAP PO SCH ×3 (08:00→16:37)
[2020-06-24] MEDS: SEVELAMER CARBONATE 800 MG TAB PO SCH ×3 (08:00→16:37)
[2020-06-24] MEDS: ONDANSETRON HCL INJ 2MG/ML 2ML 2 MG/ML VIAL IV PRN ×3 (08:05→21:03)
[2020-06-24 08:17] LABS: ANION GAP 22.2 mmol/L (8-16); CALCIUM 7.9 mg/dL (8.4-10.2); CREATININE, SERUM 6.67 mg/dL (0.57-1.11)
[2020-06-24 08:34] LABS: POTASSIUM 7.2 mmol/L (3.5-5.1)
--- NOTE | 2020-06-24 08:35 | NUR ---
PAGED DR ZIMMERMAN AND NOTIFIED THE POTASSIUM LEVEL 7.2 ,GOT NEW ORDERS
--- NOTE | 2020-06-24 08:35 | NUR ---
PAGED TO [facility] AND NOTIFIED (FRANKIE ) PT NEED STAT DIALYSIS
[2020-06-24] MEDS: ROPINIROLE HCL 0.25 MG TAB PO SCH ×3 (09:00→19:44)
[2020-06-24] MEDS: CARVEDILOL 3.125 MG TAB PO SCH ×2 (09:00→16:37)
[2020-06-24] MEDS: PANTOPRAZOLE SOD 40 MG TABEC PO SCH (09:00)
[2020-06-24] MEDS ORDERED: CALCIUM GLUCONATE 10% INJ 4.65 MEQ in SODIUM CHLORIDE 0.9% 50ML 50 ML IV ONE (09:00)
[2020-06-24] MEDS ORDERED: FUROSEMIDE INJ 10 MG/ML 10 ML VIAL IV ONE (09:00)
[2020-06-24] MEDS ORDERED: SODIUM BICARBONATE 4.2% 10 ML SYRINGE IV ONE (09:00)
[2020-06-24] MEDS ORDERED: INSULIN REGULAR, HUMAN 100 UNIT/1 ML 3ML VIAL SQ ONE (09:00)
[2020-06-24] MEDS: HEPARIN SOD (PORCINE) 5,000 UNIT/ML VIAL SC SCH ×2 (09:00→21:17)
[2020-06-24] MEDS ORDERED: SODIUM CHLORIDE 0.9% 1000ML 2,000 ML ONE (09:05)
[2020-06-24] MEDS ORDERED: ALBUTEROL SULF 0.083% NEB SOLN 3 ML NEB NEB STA (09:18)
[2020-06-24] MEDS: CEFEPIME 1GM/NS 0.9% 50 ML 50 ML IV SCH (09:30)
[2020-06-24] MEDS ORDERED: INSULIN REGULAR, HUMAN 3ML VL 100 UNIT in SODIUM CHLORIDE 0.9% 100 ML 99 ML IV SCH ×2 (09:30)
[2020-06-24] MEDS ORDERED: DEXTROSE 50% SYRINGE 50 ML IV ONE (09:30)
[2020-06-24] MEDS ORDERED: SOD POLYSTYRENE SULFONATE SUSP 15 GM/60 ML BTL PR ONE (09:30)
[2020-06-24] MEDS: MIDODRINE HCL 5 MG TABLET PO PRN ×2 (09:30→17:10)
[2020-06-24 09:39] LABS: FERRITIN 1981.2 ng/mL (4.63-204.00)
[2020-06-24] MEDS ORDERED: SODIUM BICARBONATE 8.4% INJ 50 ML SYR IV ONE (09:45)
[2020-06-24] MEDS ORDERED: INSULIN REGULAR, HUMAN 100 UNIT/1 ML 3ML VIAL IV ONE (09:45)
[2020-06-24] MEDS ORDERED: FUROSEMIDE INJ 100 MG in SODIUM CHLORIDE 0.9% 100 ML IV ONE (10:00)
[2020-06-24] MEDS ORDERED: CALCIUM GLUCONATE 10% INJ 13.95 MEQ in SODIUM CHLORIDE 0.9% 100 ML 100 ML IV ONE (10:00)
--- NOTE | 2020-06-24 11:26 | Progress Note ---
DATE: 06/24/2020 CONSULTANTS: 1. Dr. Young, [employer] service technician. 2. Dr. Manrique, Wound Care. SUBJECTIVE: The patient was seen while HD in progress. She reports the pain is improving in the right lower extremity. Pending MRI. OBJECTIVE: VITAL SIGNS: Temperature 98.4, pulse is 63, respirations 16, blood pressure 108/55, and pulse ox is 96% on room air. GENERAL: No acute distress. HEENT: Normocephalic, atraumatic. NECK: Supple. LUNGS: Clear to auscultation. CARDIOVASCULAR: Regular rate and rhythm. GI: Soft. NEUROLOGIC: Alert, awake, and oriented x3. MUSCULOSKELETAL: Moves all extremities. No edema. Right lower extremity dressing intact. PSYCH: Calm. LABORATORY DATA: Sodium 137, potassium 7.2, CO2 of 23, BUN is 53, creatinine 6.67, estimated GFR is 6, and phosphorus 5. Iron 54, TIBC 234, percent saturation 93%, transferrin 167, and ferritin 1981. IMPRESSION: 1. Right ankle cellulitis. Cultures negative, status post bedside debridement per Dr. Manrique. We will continue on cefepime and await on MRI likely today. 2. Hyperkalemia. Potassium 7.2. Hemodialysis in progress. 3. Hypertension. Continue carvedilol as blood pressure allows. 4. Diabetes. Continue sliding scale insulin. 5. End-stage renal disease. Continue hemodialysis Wednesday, Wednesday, and Wednesday per Nephrology. 6. High cholesterol. On statin. 7. Neuropathy and fibromyalgia. Pain management as needed. 8. Gastroesophageal reflux disease. On PPI. 9. Deep vein thrombosis prophylaxis. Heparin subcu. PLAN: To continue IV antibiotics and wound care, HD in progress per schedule. MRI of right foot later today. We will repeat labs in a.m. Dictated by TAMERA Sigala Samuel Marino MD MY/MODL /[id number]
[2020-06-24] MEDS ORDERED: ALBUMIN 25% 12.5GM 0.25 GM/ML BTL IV PRN (12:30)
[2020-06-24] MEDS ORDERED: SODIUM CHLORIDE 0.9% 250ML 500 ML IV PRN (12:30)
[2020-06-24] MEDS ORDERED: SODIUM CHLORIDE 0.9% 1000ML 2,000 ML IV PRN (12:30)
--- NOTE | 2020-06-24 13:55 | NUR ---
DIALYSIS DONE AND REMOVED 3 LTRS
--- NOTE | 2020-06-24 18:45 | NUR ---
PT WENT TO PROCEDURE IN SAFE CONDITION
--- NOTE | 2020-06-24 19:18 | NUR ---
SBAR REPORT RECEIVED, PATIENT NOT ON FLOOR AT TIME, HAVING PROCEDURE COMPLETED MRI RIGHT ANKLE, INFORMED THAT PATIENT HAD EPISODE OF HYPERKALEMIA LEVEL 7.4, INTERVENTION COMPLETED AND REDRAW OF POTASSIUM LEVEL COMPLETED, WILL CONTINUE TO MONITOR UPON RETURN TO ROOM
[2020-06-24] MEDS: DEPAKOTE ER 500MG TAB(ONCE DAILY) PO SCH (19:44)
[2020-06-24] MEDS: ATORVASTATIN 40 MG TAB PO SCH (19:44)
--- NOTE | 2020-06-24 20:25 | NUR ---
PATIENT COMPLETED IMAGING, RETURNED SAFELY TO ROOM, PM MEDICATION GIVEN ORDERED, PATIENT RESTING IN BED WITH CALL LIGHT WITHIN REACH, RIGHT ANKLE WRAPPED IN KERLIX DRSG DRY INTACT
[2020-06-25] VITALS (12 sets, daily range): BP systolic 109–143; BP diastolic 50–66
--- NOTE | 2020-06-25 01:20 | Progress Note ---
DATE: 06/24/2020 Nephrology Progress Note SUBJECTIVE: The patient had an elevated potassium level this morning, prompting a stat dialysis treatment. She was also given medical management as well, but much improved potassium at 4.7. PHYSICAL EXAMINATION: VITAL SIGNS: Temperature is 99.3, pulse ox 96% on room air. GENERAL: No acute distress. Alert and oriented x3. Cooperative on examination. PULMONARY: Clear to auscultation bilaterally. No wheezing, no rales, no rhonchi, no crackles appreciated. CARDIOVASCULAR: Positive S1, S2. No murmurs, rubs, or gallops appreciated. ABDOMEN: Soft, nondistended, and nontender to palpation. Bowel sounds present. MUSCULOSKELETAL: Strength 5/5 throughout. SKIN: Intact. Warm to touch. Good cap refill. PSYCHIATRIC: Normal affect and mood. EXTREMITIES: No edema. LABORATORY DATA: Show sodium 137, potassium 7.2 iron saturation is 23%. Intact PTH was pending. Coronavirus not detected. MICROBIOLOGY: Blood cultures are negative. IMAGING STUDIES: MRI of the ankle, pending. IMPRESSION: 1. End-stage renal disease, on HD Wednesday, Wednesday, and Wednesday. 2. Anemia of end-stage renal disease. 3. Right foot Achilles wound infection. 4. . PLAN: At this point, the patient is hypokalemic, prompting medical treatment as well stat dialysis attempt this morning. Repeat potassium is 4.72. Iron saturation noted. Pending intact PTH. Repeat chemistry in the morning. Low potassium, which I discussed with the patient. The patient is very noncompliant with her diet. MD RADHA Peterson/MODL /[id number]
[2020-06-25] MEDS: ONDANSETRON HCL INJ 2MG/ML 2ML 2 MG/ML VIAL IV PRN ×2 (03:00→13:11)
[2020-06-25] MEDS: MORPHINE SULFATE 2 MG/ML SYR 1ML IV PRN ×4 (03:00→22:00)
[2020-06-25 05:16] LABS: CALCIUM 8.1 mg/dL (8.4-10.2); CREATININE, SERUM 3.75 mg/dL (0.57-1.11)
[2020-06-25] MEDS: INSULIN REGULAR, HUMAN 100 UNIT/1 ML 3ML VIAL SQ SCH ×4 (07:30→21:00)
--- NOTE | 2020-06-25 08:56 | Diagnostic Imaging Report ---
TECHNIQUE: Magnetic resonance imaging of the RIGHT ANKLE was performed WITHOUT injected contrast. COMPARISON: None available. HISTORY: Pain, prior surgery FINDINGS: LIGAMENTS: Medial Complex: Intact Lateral Complex: Intact TENDONS: Medial: Intact Lateral: Intact Anterior: Intact Achilles: Postsurgical repair of the Achilles tendon with intact fibers at the lateral aspect. Partial tearing involving the medial aspect. Underlying tendinopathy and postsurgical change. BONES: Bone marrow edema and T1 replacement in the calcaneus. No acute fracture or osteonecrosis. JOINTS: Cartilage: No focal defect is identified involving the tibiotalar joint. Other: Fluid within the joints is within physiologic limits. SOFT TISSUES: Ulceration of the posterior ankle with sinus tract and fluid collection along the medial aspect of the Achilles tendon extending to the calcaneus. The collection extends approximately 5 cm in craniocaudal dimension with maximum transverse dimension of 1.6 cm. IMPRESSION: Postsurgical change to the Achilles tendon with partial tearing of the medial fibers. Soft tissue ulceration posterior ankle with 5 cm fluid collection/abscess extending to the calcaneus with osteomyelitis. No septic arthritis. Signed by: Dr. Carlton Hubbard M.D. on 06/25/2020 8:52 AM
[2020-06-25] MEDS: PANTOPRAZOLE SOD 40 MG TABEC PO SCH (09:40)
[2020-06-25] MEDS: CALCIUM ACETATE 667 MG GELCAP PO SCH ×3 (09:40→16:58)
[2020-06-25] MEDS: SEVELAMER CARBONATE 800 MG TAB PO SCH ×3 (09:40→16:58)
[2020-06-25] MEDS: CARVEDILOL 3.125 MG TAB PO SCH ×2 (09:40→16:58)
[2020-06-25] MEDS: ROPINIROLE HCL 0.25 MG TAB PO SCH ×3 (09:40→21:00)
[2020-06-25] MEDS: HEPARIN SOD (PORCINE) 5,000 UNIT/ML VIAL SC SCH ×2 (09:45→21:00)
[2020-06-25] MEDS: CEFEPIME 1GM/NS 0.9% 50 ML 50 ML IV SCH (09:45)
--- NOTE | 2020-06-25 12:32 | Progress Note ---
DATE: 06/25/2020 CONSULTANTS: 1. Dr. Borges, Nephrology. 2. Dr. Manrique, Wound Care. 3. Dr. Ruiz, ID. 4. Dr. Khan, Podiatry. SUBJECTIVE: The patient was seen sitting up in bed, crying after finding that she has osteomyelitis. She reports the pain is tolerable in the right lower extremity, nervous about having it possibly amputated. OBJECTIVE: VITAL SIGNS: Temperature 98.2, pulse is 66, respirations 16, blood pressure 125/56, and pulse ox is 99% on room air. GENERAL: No acute distress. Crying and nervous. HEENT: Normocephalic, atraumatic. NECK: Supple. LUNGS: Clear to auscultation. CARDIOVASCULAR: Regular rate and rhythm. GI: Soft and nontender. NEUROLOGIC: Alert, awake, and oriented x3. MUSCULOSKELETAL: Moves all extremities. No edema. PSYCH: Crying. Denies depression. LABORATORY DATA: Sodium 140, potassium 5.0, CO2 of 26, BUN 19, creatinine 3.75, estimated GFR is 12, and calcium 8.1. IMAGING DATA: MRI of the right ankle shows postsurgical change to the Achilles tendon with partial tearing of the medial fibers, soft tissue ulceration posterior ankle with 5 cm fluid collection or abscess extending to the calcaneus with osteomyelitis. No septic arthritis. IMPRESSION: 1. Right Achilles abscess with osteomyelitis. Cultures negative, status post bedside debridement by Dr. Manrique. We will consult Infectious Disease and Podiatry for further evaluation. Continue cefepime. 2. Hyperkalemia. Improved with dialysis. 3. Hypertension. Continue carvedilol as blood pressure allows. 4. Diabetes. Continue sliding scale insulin. 5. End-stage renal disease. Hemodialysis on Wednesday, Wednesday, and Wednesday per Renal. 6. High cholesterol. On statin. 7. Neuropathy and fibromyalgia. Pain management as needed. 8. Gastroesophageal reflux disease. On proton pump inhibitor. 9. Deep vein thrombosis prophylaxis. Heparin subcu. PLAN: To continue IV antibiotics, pending ID and Podiatry. Dictated by TAMERA Sigala Samuel Marino MD MY/MODL /[id number]
[2020-06-25] MEDS: LINEZOLID 600 MG TAB PO SCH ×2 (15:18→21:00)
--- NOTE | 2020-06-25 15:48 | Consultation ---
DATE OF CONSULTATION: REASON FOR CONSULTATION: Right foot infection. HISTORY OF PRESENT ILLNESS: This is a 60-year-old female, history of obesity, end-stage renal disease, UTI, diabetes mellitus, hypertension, neuropathy, fibromyalgia, and Achillis tendon repair in 2018. The patient apparently she stated she was walking a long way, had ruptured her tendon again and yellow drainage, came to the hospital, where she is being admitted. The patient is currently lying in bed. She had x-ray showed diffuse soft tissue swelling. PAST SURGICAL HISTORY: Cholecystectomy, appendectomy, bariatric surgery, AV fistula left upper extremity, right Achilles tear repair, and carpal tunnel. SOCIAL HISTORY: There is no smoking, drug abuse, or alcohol abuse. ALLERGIES: VANCOMYCIN. FAMILY HISTORY: Hypertension. The patient is currently on Zofran, insulin, and Renvela. She is on cefepime. Cultures are still pending. Her white count is 6.88. She had an MRI of the ankle, which showed Achilles tendon postsurgical changes, soft tissue ulceration with 5 cm fluid collection extended to the calcaneus with osteomyelitis. PHYSICAL EXAMINATION: GENERAL: Currently alert and oriented. VITAL SIGNS: Stable, currently afebrile. HEENT: She is not icteric. NECK: Supple. CHEST: Clear. HEART: S1 and S2. ABDOMEN: Soft. Bowel sounds present. EXTREMITIES: No edema. IMPRESSION: Abscess, osteomyelitis. Recommend orthopedic evaluation. Obtain wound cultures. Add Zyvox, which could be given p.o. Continue cefepime, modify after. We will follow. MD ADELA Richter/UGO /[id number]
[2020-06-25] MEDS: DEPAKOTE ER 500MG TAB(ONCE DAILY) PO SCH (21:00)
[2020-06-25] MEDS: ATORVASTATIN 40 MG TAB PO SCH (21:00)
--- NOTE | 2020-06-25 21:00 | NUR ---
INIITAL ASSESSMENT COMPLETE, TELE ON PT, IV INTACT, DRESSING TO RIGHT HAND FROM PREVIOUS SURGERY COMPLETE, RIGHT FOOT DRESSING INTACT, LEFT ARM FISTULA FOR DIALYSIS WITH GOOD BRU, NO DISTRESS NOTED, MEDS GIVEN, CALL LIGHT IN REACH, VS WNL, CONTINUE TO MONITOR
[2020-06-26] VITALS (8 sets, daily range): BP systolic 123–169; BP diastolic 65–76
--- NOTE | 2020-06-26 | NUR ---
pt is awake, no distress noted, call light in reach, will continue to monitor
--- NOTE | 2020-06-26 02:36 | Progress Note ---
DATE: 06/25/2020 Nephrology Progress Note SUBJECTIVE: The patient doing well today with no complaints. No overnight events. PHYSICAL EXAMINATION: VITAL SIGNS: Afebrile. Respiratory rate is good and normotensive. GENERAL: In no acute distress. Alert and oriented x3. Cooperative on examination. HEENT: Head; normocephalic, atraumatic. Eyes; pupils are equal, round, and reactive to light bilaterally. Extraocular movements intact bilaterally. Throat; no evidence of erythema or exudates in the posterior pharynx. Has poor dentition. NECK: Supple. Range of motion. The patient has poor dentition pulmonary clear to auscultation bilaterally. No wheezing, no rhonchi, no crackles appreciated cardiovascular positive S2. ABDOMEN: Soft, nondistended, nontender to palpation. Bowel sounds present. MUSCULOSKELETAL: Strength is 5/5 throughout. No evidence of any muscle deficits on examination. NEUROLOGICAL: Cranial nerve II through XII grossly intact. SKIN: Warm to touch. LABORATORY DATA: CBC is stable. Chemistry stable. IMPRESSION: 1. End-stage renal disease, on hemodialysis. 2. Anemia of end-stage renal disease. 3. Right foot Achilles wound infection. PLAN: At this time from a renal standpoint, dialysis as per schedule. Continue with renal diet. Phosphorus binders. We will monitor hemoglobin closely. labs are pending. MD RADHA Peterson/RENEEL /[id number]
[2020-06-26] MEDS: ONDANSETRON HCL INJ 2MG/ML 2ML 2 MG/ML VIAL IV PRN (05:10)
[2020-06-26] MEDS: MORPHINE SULFATE 2 MG/ML SYR 1ML IV PRN ×3 (05:11→20:21)
--- NOTE | 2020-06-26 06:07 | NUR ---
pt awake, call light in reach, do distress noted, will continue to monitor
[2020-06-26 07:11] LABS: ANION GAP 18.8 mmol/L (8-16); CALCIUM 8.1 mg/dL (8.4-10.2); CREATININE, SERUM 5.47 mg/dL (0.57-1.11); POTASSIUM 5.8 mmol/L (3.5-5.1)
[2020-06-26] MEDS: INSULIN REGULAR, HUMAN 100 UNIT/1 ML 3ML VIAL SQ SCH ×4 (07:30→20:50)
[2020-06-26] MEDS: SEVELAMER CARBONATE 800 MG TAB PO SCH ×4 (07:45→17:00)
[2020-06-26] MEDS: MIDODRINE HCL 5 MG TABLET PO PRN (07:45)
[2020-06-26] MEDS: PANTOPRAZOLE SOD 40 MG TABEC PO SCH (07:45)
[2020-06-26] MEDS: CALCIUM ACETATE 667 MG GELCAP PO SCH ×4 (07:45→17:00)
[2020-06-26] MEDS: CARVEDILOL 3.125 MG TAB PO SCH ×2 (09:00→16:53)
[2020-06-26] MEDS: ROPINIROLE HCL 0.25 MG TAB PO SCH ×3 (09:00→20:21)
--- NOTE | 2020-06-26 14:07 | Progress Note ---
DATE: 06/26/2020 CONSULTANTS: 1. Dr. Young, Nephrology. 2. Dr. Manrique, Wound Care. 3. Dr. Ruiz, ID. 4. Dr. Khan, Podiatry. SUBJECTIVE: The patient is seen while in dialysis. She is sleepy, but easily arousable. Denies any chest pain, shortness of breath, nausea, or vomiting. OBJECTIVE: VITAL SIGNS: Temperature 96.5, pulse is 80, respirations 20, blood pressure 169/76, and pulse ox 99% on room air. GENERAL: Sleepy, but easily arousable, in no acute distress. HEENT: Normocephalic and atraumatic. NECK: Supple. LUNGS: Decreased breath sounds. CARDIOVASCULAR: Regular rate and rhythm. GI: Soft and nontender. NEUROLOGIC: Alert, awake, and oriented x3. MUSCULOSKELETAL: Moves all extremities. SKIN: Right ankle dressing intact. PSYCH: Calm. LABORATORY DATA: Sodium 141, potassium 5.8, CO2 29, BUN 31, creatinine 5.47, estimated GFR is 8, glucose 69, and calcium 8.1. IMPRESSION: 1. Right Achilles abscess with osteomyelitis. Cultures negative, status post bedside debridement by Dr. Manrique. Antibiotics per ID. Continue cefepime and added Zyvox. 2. Hyperkalemia. We will address with dialysis per Renal. 3. Hypertension. Continue carvedilol. 4. Diabetes type 2. Continue sliding scale insulin. 5. End-stage renal disease, on hemodialysis Wednesday, Wednesday, Wednesday. Hemodialysis today due to hyperkalemia. 6. High cholesterol, on statin. 7. Neuropathy and fibromyalgia. Pain management as needed. 8. Gastroesophageal reflux disease, on PPI. 9. Deep vein thrombosis prophylaxis. Heparin subcutaneous. PLAN: To continue IV antibiotics per ID, HD today for hyperkalemia. Pending Podiatry evaluation. Dictated by TAMERA Sigala Samuel Marino MD MY/MODL /[id number]
[2020-06-26] MEDS ORDERED: ONDANSETRON HCL 4 MG ORAL DISINTEGRATING TAB PO PRN (14:15)
[2020-06-26] MEDS: LINEZOLID 600 MG TAB PO SCH ×2 (14:36→20:21)
[2020-06-26] MEDS: HEPARIN SOD (PORCINE) 5,000 UNIT/ML VIAL SC SCH ×2 (14:37→20:54)
[2020-06-26] MEDS: CEFEPIME 1GM/NS 0.9% 50 ML 50 ML IV SCH (14:37)
--- NOTE | 2020-06-26 17:03 | NUR ---
Nutrition Screen Note RD Recommendation for Physician: -Continue renal diet Plan of Care: RD following, monitoring for tolerance and adequacy Nutrition reason for involvement: Length of stay Primary Diagnose(s): Achilles tendon rupture and diabetic foot ulcer PMH: hypertension, diabetes, UTI, ESRD, sleep apnea, neuropathy, and fibromyalgia with history of Achilles tear repair in 2018 Ht: 57 in Wt:169 lb BMI: 36.6 kg/m2 IBW: [address] Assessment: (06/26/20) Chart reviewed. Labs and meds reviewed. Pt is a 60 year old female admitted with Achilles tendon rupture and diabetic foot ulcer. Pt reports eating <50% of her meals during admission, but was eating well prior to admission. Last recorded meal intake was 75-100% on 06/24 per chart. No weight loss reported and pt stated she usually weighs 170 lbs. No N/VD/C or chewing/swallowing issues. Pt declined the need for diet education. Will continue to monitor. Current Diet: renal diet Malnutrition Evaluation (06/26/20) The patient does not meet criteria for a specified degree of malnutrition at this time. Will re-evaluate at follow-up as appropriate. Diet Education Needs Assessment: pt declined the need for diet education Nutrition Care Level: low Signed: Madeline Hope, RD, LD
--- NOTE | 2020-06-26 19:20 | NUR ---
Patient received lying in bed. AAO x 3. Patient had no complaints of pain. Respirations even and non-labored. Safety measures implemented. Patient instructed to call for assistance when needed. Call light within reach.
[2020-06-26] MEDS: ATORVASTATIN 40 MG TAB PO SCH (20:21)
[2020-06-26] MEDS: DEPAKOTE ER 500MG TAB(ONCE DAILY) PO SCH (20:21)
--- NOTE | 2020-06-26 21:00 | NUR ---
infectious disease progress note addendum The case was discussed with Dr. Danilo Oleary We will get an indium scan We will consult him officially Depending on indium scan further recommendations to follow continue antibiotic
[2020-06-27] VITALS (8 sets, daily range): BP systolic 146–172; BP diastolic 63–80
--- NOTE | 2020-06-27 03:26 | Progress Note ---
DATE: 06/26/2020 Nephrology Progress Note SUBJECTIVE: The patient received HD today. No more issues. She is very noncompliant with diet. OBJECTIVE: VITAL SIGNS: Temperature is 98, pulse 81, respiratory rate is 20, blood pressure 166/72, and pulse ox is 95% on room air. GENERAL: In no acute distress. Alert and oriented x2. Cooperative on examination. HEENT: Head; normocephalic and atraumatic. Eyes; pupils are equal, round, and reactive to light bilaterally. Extraocular muscles are intact. Throat, no evidence of any erythema or exudates in the posterior pharynx. Has poor dentition. NECK: Supple. Good range of motion. PULMONARY: Clear to auscultation bilaterally. No wheezing, rales, or rhonchi. No crackles appreciated. CARDIOVASCULAR: Positive S1 and S2. No murmurs, rubs, or gallops appreciated. ABDOMEN: Soft, nondistended, and nontender to palpation. Bowel sounds present. MUSCULOSKELETAL: Strength is 5/5 throughout. LABORATORY FINDINGS: White count 6.8, hemoglobin 9, hematocrit 21, and platelets of 160,000. Chemistry reveals sodium 141, potassium 5.8, chloride 99, bicarb 29, anion gap of 18, BUN is 31, creatinine 5.47. IMPRESSION: 1. End-stage renal disease, on hemodialysis Wednesday, Wednesday, and Wednesday. 2. Anemia of end-stage renal disease. 3. Secondary hyperparathyroidism. 4. Right Achilles wound infection. PLAN: At this time, HD performed today as per schedule. The 2K bath 2.5 calcium, ultrafiltration 3 L, duration 4 hours. Continue with phosphorus binders in diet. Monitor hemoglobin closely. MD RADHA Peterson/MODL /[id number]
[2020-06-27 05:15] LABS: BASOPHILS # (AUTO) 0.1 (0.0-0.1); BASOPHILS % 1.2 % (0.0-1.0); HEMATOCRIT 34.2 % (34.2-44.1); HEMOGLOBIN 10.3 g/dL (12.0-16.0); LYMPHOCYTES # (AUTO) 0.8 (1.0-3.2); LYMPHOCYTES % 18.8 % (18.0-39.1); MEAN CORPUSCULAR HEMOGLOBIN 32.4 pg (28-32); MEAN CORPUSCULAR HGB CONC 30.1 g/dL (31-35); MEAN CORPUSCULAR VOLUME 107.5 fL (81-99); MONOCYTES # (AUTO) 0.6 (0.2-0.8); MONOCYTES % 13.4 % (4.4-11.3); NEUTROPHILS # (AUTO) 2.5 (2.1-6.9); PLATELET COUNT 163 x10e3/uL (140-360); RED BLOOD COUNT 3.18 x10e6/uL (3.6-5.1); RED CELL DISTRIBUTION WIDTH 16.8 % (11.7-14.4)
[2020-06-27 05:32] LABS: ANION GAP 14.8 mmol/L (8-16); CALCIUM 8.6 mg/dL (8.4-10.2); CREATININE, SERUM 3.56 mg/dL (0.57-1.11); POTASSIUM 4.8 mmol/L (3.5-5.1)
--- NOTE | 2020-06-27 06:43 | NUR ---
Patient resting comfortably. Walking rounds done. BSSR given to oncoming nurse regarding patient's status.
[2020-06-27] MEDS: INSULIN REGULAR, HUMAN 100 UNIT/1 ML 3ML VIAL SQ SCH ×4 (07:30→21:00)
[2020-06-27] MEDS: MORPHINE SULFATE 2 MG/ML SYR 1ML IV PRN ×2 (08:00→16:41)
[2020-06-27] MEDS: SEVELAMER CARBONATE 800 MG TAB PO SCH ×3 (09:06→18:02)
[2020-06-27] MEDS: CALCIUM ACETATE 667 MG GELCAP PO SCH ×3 (09:06→18:02)
[2020-06-27] MEDS: LINEZOLID 600 MG TAB PO SCH ×2 (09:08→21:56)
[2020-06-27] MEDS: ROPINIROLE HCL 0.25 MG TAB PO SCH ×3 (09:08→21:56)
[2020-06-27] MEDS: CARVEDILOL 3.125 MG TAB PO SCH ×2 (09:08→18:02)
[2020-06-27] MEDS: PANTOPRAZOLE SOD 40 MG TABEC PO SCH (09:08)
[2020-06-27] MEDS: HEPARIN SOD (PORCINE) 5,000 UNIT/ML VIAL SC SCH ×2 (09:09→21:00)
[2020-06-27] MEDS: CEFEPIME 1GM/NS 0.9% 50 ML 50 ML IV SCH (09:09)
--- NOTE | 2020-06-27 13:10 | NUR ---
WOUND CARE CONSULT 60 YO FEMALE HX OF diabetic ulcer L ankle IAN 0N MODERATE PUP STATUS AND INTERVENTIONS LABS: WBC- 4.09 HGB- 10.3 GLUCOSE-82 SKIN ASSESSMENT COMPLETE PATIENT PRESENTS WITH DIABETIC ULCERATION LEFT ANKLE RECOMMENDATIONS: CONTINUE TO FOLLOW MODERATE PUP INTERVENTIONS NURSING TO CONTINUE TO GET PATIENT OUT OF BED FOR MEALS AND MUCH TOLERATED NURSING TO CLEAN LEFT ANKLE DIABETIC ULCERATION WITH NORMAL SALINE DAILY AND APPLY MAXSORB AG AND COVER WITH ALLEVYN FOAM DRESSING Addendum: 06/27/20 at 1315 by Shiv Portillo RN Amended: Links added.
--- NOTE | 2020-06-27 14:35 | NUR ---
infectious disease Conn[place] note The case was discussed with internal medicine as well as orthopedic Patient seen and examined chart reviewed at the present time the patient is doing well review of systems HEENT negative pulmonary or cardiac negative negative skin there is no rash or physical examination currently alert oriented does not seem to be in acute distress her vitals stable currently afebrile HEENT normocephalic no protracted neck supple chest clear bilateral heart was to a soft but positive symptoms no edema skin no rash. Lab data reviewed chart reviewed Open wound and the ankle concern about osteomyelitis concern about abscess discussed with orthopedic will get indium scan may need debridement continue IV antibiotics as ordered continue with wound wound care was ordered
--- NOTE | 2020-06-27 15:00 | NUR ---
received order to straight cath pt for UA, one attempt was done to straight cath and no urine return. notified attending and states next time pt has urge to void straight cath again for specimen.
[2020-06-27] MEDS: ONDANSETRON HCL INJ 2MG/ML 2ML 2 MG/ML VIAL IV PRN (17:18)
--- NOTE | 2020-06-27 18:05 | Progress Note ---
DATE: 06/27/2020 CONSULTANTS: 1. Dr. Young, Nephrology. 2. Dr. Manrique, Wound Care. 3. Dr. Ruiz, ID. 4. Dr. Khan, Podiatry. 5. Dr. Connolly, Ortho. SUBJECTIVE: The patient resting in bed with no acute distress, she reports has purulent urine occasionally. She denies any fever, chills, chest pain, shortness of breath, pelvic pain, or dysuria. OBJECTIVE: VITAL SIGNS: Temperature 97.9, pulse is 73, respirations 18, blood pressure 146/70, pulse ox is 96% on room air. GENERAL: No acute distress. HEENT: Normocephalic, atraumatic. NECK: Supple. LUNGS: Decreased breath sounds. CARDIOVASCULAR: Regular rate and rhythm. GI: Soft and nontender, obese. NEUROLOGIC: Alert, awake, and oriented x3. MUSCULOSKELETAL: Moves all extremities. Right lower extremity dressing in place. No edema. SKIN: Dry. PSYCH: Calm. LABORATORY DATA: WBC 4.09, hemoglobin 10.3, hematocrit 34.2, platelet 163,000. Sodium 141, potassium 4.8, BUN is 13, creatinine 3.56. IMPRESSION: 1. Right Achilles abscess with osteomyelitis. Cultures negative so far. Status post bedside debridement by Dr. Manrique. Continue cefepime and Zyvox per ID. Indium scan/bone scan pending, and orthopedics Dr. Connolly has been consulted. 2. Hypertension. Continue carvedilol. 3. Diabetes type 2. Continue sliding scale insulin. 4. ESRD. On HD Wednesday, Wednesday, and Wednesday per Renal. 5. High cholesterol. On statin. 6. Neuropathy and fibromyalgia. Pain management as needed. 7. Gastroesophageal reflux disease. On PPI. 8. Deep vein thrombosis prophylaxis. Heparin subcu. PLAN: Continue antibiotics per ID, pending Indium scan and orthopedic evaluation. Dictated by TAMERA Sigala Samuel Marino MD MY/MODL /[id number]
--- NOTE | 2020-06-27 18:15 | Progress Note ---
DATE: SUBJECTIVE: Ms. Avila is doing well. There are no new complaints. I am trying to get in touch with Dr. Connolly to discuss her case. He is going to review her records. PHYSICAL EXAMINATION: GENERAL: The patient was currently alert, oriented, does not seem to be in acute distress. VITAL SIGNS: Stable, currently afebrile. HEENT: She is not icteric. NECK: Supple. CHEST: Clear. HEART: S1 and S2. ABDOMEN: Soft. PLAN: 1. The patient is currently on cefepime and Zyvox. 2. Continue with wound care as ordered. Discussed with Internal Medicine. MD ADELA Richter/UGO /[id number]
--- NOTE | 2020-06-27 19:25 | NUR ---
Patient received sitting up in bed. No acute distress noted. Call light within reach.
--- NOTE | 2020-06-27 21:32 | NUR ---
Patient back from Bone Scan . Patient in stable condition.
[2020-06-27] MEDS: DEPAKOTE ER 500MG TAB(ONCE DAILY) PO SCH (21:56)
[2020-06-27] MEDS: ATORVASTATIN 40 MG TAB PO SCH (21:56)
--- NOTE | 2020-06-27 22:24 | NUR ---
Urine specimen sent to lab for analysis.
--- NOTE | 2020-06-27 22:41 | Diagnostic Imaging Report ---
Bone Scan, three-phase - feet and ankles Reason for exam: Post surgical repair of Achilles tendon rupture; draining wound right heel. Radiopharmaceutical: Tc-99m MDP 22.7 mCi IV right wrist Comparison: MRI right ankle 06/24/2020 Following intravenous administration of the radiopharmaceutical, dynamic flow and immediate blood pool images of the feet and ankles in the lateral/medial projection followed by selected spot images were obtained. Flow and blood pool images show diffuse, relatively symmetric distribution of tracer activity to the feet and ankles with focal increased tracer in the right heel. The delayed images show markedly increased tracer activity throughout the right calcaneus. Impression: Scan findings are very worrisome for osteomyelitis in the right calcaneus. Given the compromised specificity of 3-phase bone scan for osteomyelitis in complicated osteomyelitis, proceeding with a labeled white blood cell study, as already ordered, is the appropriate study to add specificity to the evaluation. Signed by: Dr. Corrine Greenberg M.D. on 06/27/2020 10:38 PM
[2020-06-28] VITALS (8 sets, daily range): BP systolic 111–154; BP diastolic 44–79
[2020-06-28] MEDS: ONDANSETRON HCL INJ 2MG/ML 2ML 2 MG/ML VIAL IV PRN ×4 (00:03→19:48)
[2020-06-28] MEDS: MORPHINE SULFATE 2 MG/ML SYR 1ML IV PRN ×4 (00:03→19:54)
--- NOTE | 2020-06-28 00:46 | Progress Note ---
DATE: 06/27/2020 Nephrology Progress Note SUBJECTIVE: The patient doing well. With no complaints. OBJECTIVE: VITAL SIGNS: Temperature 98.3, pulse 60, blood pressure 166/66, pulse ox 96% on room air. GENERAL: No acute distress. Alert and oriented x3. Cooperative on examination. HEENT: Head; normocephalic, atraumatic. Eyes; pupils are equal, round, and reactive to light. Throat; no evidence of erythematous or exudates in the posterior pharynx. Has poor dentition. NECK: Supple. Good range of motion. PULMONARY: Clear to auscultation bilaterally. No wheezing, rales, or rhonchi. No crackles appreciated. CARDIOVASCULAR: Positive S1 and S2. No murmurs, rubs, or gallops appreciated. ABDOMEN: Soft, nondistended, and nontender to palpation. Bowel sounds present. MUSCULOSKELETAL: Strength 5/5 throughout. No evidence of any muscle deficits on examination. NEUROLOGIC: Cranial nerves II through XII grossly intact. No evidence of any neurological deficits on exam. SKIN: Intact. Warm to touch. Good cap refill. LABORATORY DATA: Show white count 4, hemoglobin 10.2, hematocrit 34, platelets of 163. Chemistry; sodium 141, potassium 4.8, chloride 104, bicarb 27, anion gap of 14, BUN 13 and creatinine is 3.56. IMPRESSION: 1. End-stage renal disease, on hemodialysis . 2. Anemia of end-stage renal disease secondary to hyperparathyroidism. 3. Right Achilles wound infection with underlying osteomyelitis. PLAN: At this time, chemistry is stable. Schedule HD for tomorrow. Phosphorus binders, renal diet. We will monitor closely. MD RADHA Peterson/MODL /[id number]
--- NOTE | 2020-06-28 07:00 | NUR ---
Walking rounds done. BSSR given.
[2020-06-28] MEDS: INSULIN REGULAR, HUMAN 100 UNIT/1 ML 3ML VIAL SQ SCH ×4 (07:30→21:00)
--- NOTE | 2020-06-28 07:30 | NUR ---
PATIENT IN BED RESTING WITH HEAD OF BED ELEVATED, NO DISTRESS NOTED. DRESSING INTACT TO RIGHT ANKLE, AND RIGHT PALM, LIMB ALERT TO LEFT ARM. BED IN LOWER POSITION, CALL LIGHT AT REACH.
--- NOTE | 2020-06-28 07:52 | NUR ---
PATIENT HAS AN ORDER FOR INDUM SCAN, ORDER RECEIVED FROM RADIOLOGY TO CALL JUST BEFORE DIALYSIS FOR BLOOD DRAWN. DIALYSIS NURSE IN THE ROOM READY TO START, RADIOLOGY CALLED SPOKE WITH DAPHNEY WHO SAID THAT THE TEST WILL BE DONE BY NUCLEAR MEDICINE AND THEY WILL BE HERE AROUND 8:30. DIALYSIS NURSE NOTIFIED.
[2020-06-28] MEDS: CALCIUM ACETATE 667 MG GELCAP PO SCH ×3 (08:00→17:00)
[2020-06-28] MEDS: SEVELAMER CARBONATE 800 MG TAB PO SCH ×3 (08:00→17:00)
[2020-06-28] MEDS: ROPINIROLE HCL 0.25 MG TAB PO SCH ×3 (09:00→21:25)
[2020-06-28] MEDS: CARVEDILOL 3.125 MG TAB PO SCH ×2 (09:00→17:00)
--- NOTE | 2020-06-28 10:54 | NUR ---
BED SIDE HEMODIALYSIS TREATMENT IN PROGRESS. PATIENT IN BED RESTING, CALL LIGHT AT REACH.
--- NOTE | 2020-06-28 13:30 | NUR ---
HEMODIALYSIS TREATMENT COMPLETED. 3LITERS REMOVED PER DIALYSIS NURSE. B/P 116/58, HR 105. SCHEDULED MEDICATION GIVEN. PATIENT IN BED WITH CALL LIGHT AT REACH.
[2020-06-28] MEDS: PANTOPRAZOLE SOD 40 MG TABEC PO SCH (13:54)
[2020-06-28] MEDS: LINEZOLID 600 MG TAB PO SCH ×2 (13:54→21:25)
--- NOTE | 2020-06-28 14:00 | NUR ---
PATIENT OFF UNIT TO NUCLEAR MEDICINE.
--- NOTE | 2020-06-28 14:55 | NUR ---
PATIENT BACK TO UNIT FROM NUCLEAR MEDICINE.
[2020-06-28] MEDS: CEFEPIME 1GM/NS 0.9% 50 ML 50 ML IV SCH (15:04)
--- NOTE | 2020-06-28 18:24 | Progress Note ---
DATE: 06/28/2020 CONSULTANTS: 1. Dr. Young with Nephrology. 2. Dr. Manrique, Wound Care. 3. Dr. Ruiz, ID. 4. Dr. Khan, Podiatry. 5. Dr. Connolly, Orthopedics. SUBJECTIVE: The patient is seen status post dialysis. She reports feeling tired. She also had part of the indium scan done. She denies any fever, chills, chest pain, or shortness of breath. PHYSICAL EXAMINATION: VITAL SIGNS: Temperature 98.2, pulse is 80, respirations 16, blood pressure 136/72, and pulse ox is 100% on room air. GENERAL: No acute distress. Fatigued. HEENT: Normocephalic and atraumatic. NECK: Supple. LUNGS: With decreased breath sounds. CARDIOVASCULAR: Regular rate and rhythm. GI: Soft, nontender, and obese. Active bowel sounds. NEUROLOGIC: Alert, awake, and oriented x3. MUSCULOSKELETAL: Moves all extremities. No edema. Right lower foot dressing. PSYCH: Calm. LABORATORY DATA: No labs today. IMAGING: Bone scan of the right lower extremity showed very worrisome for osteomyelitis in the right calcaneus. Given the compromised specificity of three phase bone scan for osteomyelitis and complicated osteomyelitis proceeding with the labile white blood cell study is already ordered is appropriate study specificity to the evaluation. IMPRESSION: 1. Right calcaneus osteomyelitis and Achilles abscess. Wound culture negative so far, status post bedside debridement. Continue on cefepime and Zyvox per ID. Bone scan shows osteomyelitis, pending indium scan. Orthopedics has been consulted. 2. Hypertension. Continue carvedilol. 3. Diabetes type 2. Continue sliding scale insulin. 4. End-stage renal disease, on HD Wednesday, Wednesday, and Wednesday per Renal. 5. High cholesterol. On statin. 6. Urinary tract infection. Urine culture shows gram-negative rods. We will defer to ID. 7. Neuropathy and fibromyalgia. Pain management as needed. 8. Gastroesophageal reflux disease. On PPI. 9. Deep vein thrombosis prophylaxis. Continue heparin subcutaneous. PLAN: To continue antibiotics, await on indium scan, and orthopedic recommendations. Dictated by TAMERA Sigala Samuel Marino MD MY/MODL /[id number]
--- NOTE | 2020-06-28 18:37 | NUR ---
progress note patient seen and examined chart reviewed she is currently complaining of nausea nausea the patient is doing well with no complaints. Vital signs, she is afebrile, normotensive, respiratory rate is good. Labs reviewed are stable. Microbiology, urine culture shows gram negative rods. PHYSICAL EXAMINATION: GENERAL: No acute distress. Alert and oriented x 3. Cooperative on examination. HEENT: Head; normocephalic, atraumatic. Eyes; pupils are equal, round, and reactive to light. PULMONARY: Clear to auscultation. No wheezing, rales, or rhonchi. No crackles appreciated. CARDIOVASCULAR: Positive S1, S2. No murmurs, rubs, or gallops appreciated. ABDOMEN: Soft, nondistended, and nontender to palpation. Bowel sounds present. MUSCULOSKELETAL: Strength is 5/5 throughout. IMPRESSION: 1. End-stage renal disease, on hemodialysis Wednesday, Wednesday, and Wednesday. 2. obesity. 3. Secondary hyperparathyroidism. 4. Right Achilles wound infection with underlying osteomyelitis. await indium scan Continue antibiotic Orthopedic is following
--- NOTE | 2020-06-28 21:13 | NUR ---
PATIENT RETURN TO UNIT FROM BONE SCAN.
[2020-06-28] MEDS: DEPAKOTE ER 500MG TAB(ONCE DAILY) PO SCH (21:25)
[2020-06-28] MEDS: ATORVASTATIN 40 MG TAB PO SCH (21:25)
[2020-06-29] VITALS (8 sets, daily range): BP systolic 124–161; BP diastolic 56–79
[2020-06-29] MEDS: ONDANSETRON HCL INJ 2MG/ML 2ML 2 MG/ML VIAL IV PRN ×3 (02:14→20:45)
[2020-06-29] MEDS: MORPHINE SULFATE 2 MG/ML SYR 1ML IV PRN ×3 (02:17→20:45)
--- NOTE | 2020-06-29 03:27 | Progress Note ---
DATE: 06/28/2020 Nephrology Progress Note SUBJECTIVE: The patient is doing well with no complaints. due today. Vital signs, she is afebrile, normotensive, respiratory rate is good. Labs reviewed are stable. Microbiology, urine culture shows gram negative rods. PHYSICAL EXAMINATION: GENERAL: No acute distress. Alert and oriented x 3. Cooperative on examination. HEENT: Head; normocephalic, atraumatic. Eyes; pupils are equal, round, and reactive to light. PULMONARY: Clear to auscultation. No wheezing, rales, or rhonchi. No crackles appreciated. CARDIOVASCULAR: Positive S1, S2. No murmurs, rubs, or gallops appreciated. ABDOMEN: Soft, nondistended, and nontender to palpation. Bowel sounds present. MUSCULOSKELETAL: Strength is 5/5 throughout. IMPRESSION: 1. End-stage renal disease, on hemodialysis Wednesday, Wednesday, and Wednesday. 2. . 3. Secondary hyperparathyroidism. 4. Right Achilles wound infection with underlying osteomyelitis. PLAN: The patient received dialysis calcium. Ultrafiltration 2-3 L, duration 3-1/2 hours to 4 hours. Continue with phosphate binders and renal diet. The patient is improving daily. We will continue to monitor. MD RADHA Peterson/UGO /[id number]
--- NOTE | 2020-06-29 07:17 | NUR ---
PATIENT IN BED RESTING WITH EYES CLOSED, NO DISTRESS NOTED. DRESSING DRY AND INTACT TO RIGHT ANKLE. BED IN LOWER POSITION, CALL LIGHT AT REACH.
--- NOTE | 2020-06-29 07:24 | NUR ---
REPORT GIVEN TO DAYSHIFT NURSE. ALERT AND RESTING IN BED. NO SIGNS IV INFILTRATION. BED LOCKED AND IN LOW POSITION. CALL LIGHT WITHIN REACH.
[2020-06-29] MEDS: INSULIN REGULAR, HUMAN 100 UNIT/1 ML 3ML VIAL SQ SCH ×4 (07:30→19:46)
[2020-06-29] MEDS: CALCIUM ACETATE 667 MG GELCAP PO SCH ×3 (08:30→17:10)
[2020-06-29] MEDS: SEVELAMER CARBONATE 800 MG TAB PO SCH ×3 (08:30→17:10)
[2020-06-29] MEDS: PANTOPRAZOLE SOD 40 MG TABEC PO SCH (09:12)
[2020-06-29] MEDS: CARVEDILOL 3.125 MG TAB PO SCH ×2 (09:12→17:10)
[2020-06-29] MEDS: LINEZOLID 600 MG TAB PO SCH ×2 (09:12→20:45)
[2020-06-29] MEDS: ROPINIROLE HCL 0.25 MG TAB PO SCH ×3 (09:12→20:45)
[2020-06-29] MEDS: CEFEPIME 1GM/NS 0.9% 50 ML 50 ML IV SCH (09:30)
--- NOTE | 2020-06-29 11:34 | NUR ---
PATIENT C/O PAIN AND WAS MEDICATED ORDERED. WILL CLOSELY MONITOR.
--- NOTE | 2020-06-29 14:05 | NUR ---
PATIENT OFF UNIT TO NUCLEAR MEDICINE.
--- NOTE | 2020-06-29 15:40 | Diagnostic Imaging Report ---
Labeled WBC Study Reason for exam: Post surgical repair of Achilles tendon rupture; draining wound right heel. Comparison: 3-phase bone scan 06/27/2020; MRI ankle 06/24/2020 Report: The patient's own white blood cells were labeled with In-111 oxine 565 millicuries by a commercial radiopharmacy. Images of the feet and ankles were obtained at 5 and 24 hours post administration of the labeled white blood cells. Focal increased tracer activity at the posterior aspect of the right calcaneus at 5 hours and persisting at 24 hours matches the focal increased tracer activity seen on the recent 3-phase bone scan. No other foci of increased tracer activity are seen in the feet or ankles. IMPRESSION: Scan findings congruent with findings on recent 3-phase bone scan and compatible with osteomyelitis in the posterior aspect of the right calcaneus. Signed by: Dr. Corrine Greenberg M.D. on 06/29/2020 3:36 PM
--- NOTE | 2020-06-29 15:50 | NUR ---
PATIENT BACK TO UNIT FROM NUCLEAR MEDICINE. V/S 97.9-74-18-135/79 AND 92% ON RA.
[2020-06-29 16:57] LABS: ALBUMIN 3.9 g/dL (3.5-5.0); BILIRUBIN,DIRECT 0.2 mg/dL (0.0-0.5)
[2020-06-29] MEDS: DEPAKOTE ER 500MG TAB(ONCE DAILY) PO SCH (20:45)
[2020-06-29] MEDS: ATORVASTATIN 40 MG TAB PO SCH (20:45)
--- NOTE | 2020-06-29 21:45 | NUR ---
PATIENT RESTING IN BED IN STABLE CONDITION, NO SIGNS OF DISTRESS NOTED. DRESSING CHANGE DONE TO RIGHT ANKLE PER DOCTOR'S ORDERS. PATIENT VOICES PAIN AT A LEVEL OF 9 AND WAS MEDICATED ORDERED. BED IS IN LOWEST POSITION, BOTH SIDE RAILS ARE UP, CALL LIGHT IS WITHIN EASY REACH, WILL CONTINUE TO MONITOR.
[2020-06-30] VITALS (7 sets, daily range): BP systolic 129–141; BP diastolic 55–68
--- NOTE | 2020-06-30 02:34 | Progress Note ---
DATE: 06/29/2020 Nephrology Progress Note SUBJECTIVE: The patient is doing well today with no complaints. No overnight events. Vital signs, she is afebrile, normotensive, respiratory rate is good. Labs reviewed . PHYSICAL EXAMINATION: GENERAL: No acute distress. Alert and oriented x 3. Cooperative on examination. PULMONARY: Clear to auscultation. No wheezing, rales, or rhonchi. No crackles appreciated. CARDIOVASCULAR: Positive S1, S2. No murmurs, rubs, or gallops appreciated. ABDOMEN: Soft, nondistended, and nontender to palpation. Bowel sounds present. MUSCULOSKELETAL: Strength is 5/5 throughout. IMPRESSION: 1. End-stage renal disease . 2. Secondary hyperparathyroidism. 3. Right Achilles wound infection with underlying osteomyelitis. PLAN: At this time, labs were stable. The patient is scheduled for Wednesday. . Continue with phosphate binders and renal diet. The patient has been noncompliant with the diet . MD RADHA Peterson/UGO /[id number]
[2020-06-30] MEDS: MORPHINE SULFATE 2 MG/ML SYR 1ML IV PRN ×3 (04:10→21:15)
[2020-06-30] MEDS: ONDANSETRON HCL INJ 2MG/ML 2ML 2 MG/ML VIAL IV PRN ×3 (04:10→21:15)
--- NOTE | 2020-06-30 07:14 | NUR ---
PATIENT SITTING UP IN BED WATCHING TV, NO DISTRESS NOTED. DRESSING DRY AND INTACT TO RIGHT ANKLE. BED IN LOWER POSITION, CALL LIGHT AT REACH.
[2020-06-30] MEDS: INSULIN REGULAR, HUMAN 100 UNIT/1 ML 3ML VIAL SQ SCH ×4 (07:30→20:05)
[2020-06-30] MEDS: SEVELAMER CARBONATE 800 MG TAB PO SCH ×3 (09:04→17:03)
[2020-06-30] MEDS: CALCIUM ACETATE 667 MG GELCAP PO SCH ×3 (09:04→17:03)
[2020-06-30] MEDS: PANTOPRAZOLE SOD 40 MG TABEC PO SCH (09:05)
[2020-06-30] MEDS: CARVEDILOL 3.125 MG TAB PO SCH ×2 (09:05→17:03)
[2020-06-30] MEDS: ROPINIROLE HCL 0.25 MG TAB PO SCH ×3 (09:05→21:30)
[2020-06-30] MEDS: LINEZOLID 600 MG TAB PO SCH ×2 (09:05→21:30)
--- NOTE | 2020-06-30 11:40 | Progress Note ---
DATE: 06/29/2020 SUBJECTIVE: Ms. Avila complaints that she is just not feeling well. In general, there is no specific complaint. There is some nausea. PHYSICAL EXAMINATION: GENERAL: Currently alert and oriented. VITAL SIGNS: Stable, currently afebrile. HEENT: Normocephalic. NECK: Supple. CHEST: Clear bilateral. HEART: S1 and S2. ABDOMEN: Soft. Bowel sounds present. EXTREMITIES: No edema. SKIN: No rash. IMPRESSION: 1. Nausea. Check amylase, lipase, and liver enzyme. 2. Right Achilles infection, concerned osteo. Awaiting indium scan. 3. End-stage renal disease, on hemodialysis. The patient is currently on cefepime 1 g daily and linezolid. We will follow. MD ADELA Richter/UGO /[id number]
--- NOTE | 2020-06-30 11:40 | Progress Note ---
DATE: 06/29/2020 CONSULTANTS: 1. Dr. Young, Nephrology. 2. Dr. Manrique, Wound Care. 3. Dr. Ruiz, ID. 4. Dr. Khan, Podiatry. 5. Dr. Connolly, Orthopedics. SUBJECTIVE: The patient seen, status post Indium scan. She reports not being able to sleep last night, but otherwise, denies any chest pain, shortness of breath, fever, chills, or pain. PHYSICAL EXAMINATION: VITAL SIGNS: Temperature 98.6, pulse is 67, respirations 18, blood pressure 124/60, pulse ox is 99% on room air. GENERAL: Fatigue. HEENT: Normocephalic, atraumatic. NECK: Supple. LUNGS: Decreased breath sounds. CARDIOVASCULAR: Regular rate and rhythm. GI: Soft, nontender, and obese. NEUROLOGIC: Alert, awake, and oriented x3. MUSCULOSKELETAL: Moves all. No edema. SKIN: Right lower extremity dressing intact. PSYCH: Calm. LABORATORY DATA: Total bilirubin 0.4, AST 22, ALT 15, albumin 3.9, amylase 82, lipase 30. IMPRESSION: 1. Right calcaneus osteomyelitis and Achilles abscess. Wound culture negative, status post debridement at bedside. We will continue on Zyvox and cefepime per ID. Pending Indium scan for orthopedic intervention. 2. Hypertension. Continue carvedilol. 3. Diabetes type 2. Continue sliding scale insulin. 4. End-stage renal disease. On dialysis Wednesday, Wednesday, and Wednesday per Renal. 5. High cholesterol. 6. Urinary tract infection. Urine culture is positive for gram-negative rods. 7. Neuropathy and fibromyalgia. Pain management per as needed. 8. Gastroesophageal reflux disease. On PPI. 9. Deep vein thrombosis prophylaxis. Heparin subcu. PLAN: Continue antibiotics per ID. Final Indium scan results pending for orthopedic evaluation. Dictated by TAMERA Sigala Samuel Marino MD MY/MODL /[id number]
--- NOTE | 2020-06-30 12:06 | NUR ---
SPOKE WITH DR FLAKO FARRELL REGARDING ABNORMAL LAB RESULT. NEW ORDER RECEIVED.
--- NOTE | 2020-06-30 13:46 | Progress Note ---
DATE: SUBJECTIVE: The patient is seen and evaluated. Available labs and notes reviewed. Discussed with the nurse. REVIEW OF SYSTEMS: Remains with nausea and right foot pain. Poor appetite secondary to nausea. PHYSICAL EXAMINATION: VITAL SIGNS: Temperature 97.7, pulse 66, respiration 20, and blood pressure 131/58. GENERAL: Awake and alert. Weak. CV: S1 and S2. CHEST: Equal expansion. No acute distress. ABDOMEN: Soft and nontender. Positive bowel sounds. HEENT: Moist. No pallor. No JVD. EXTREMITIES: Right foot wound on the medial side of the ankle seen with some drainage that was expressed during my examination, which is brown-colored, seems like pus. MEDICATIONS: Medication list reviewed and from ID point of view, the patient is on Zyvox, status post cefepime apparently fell off the medication list last night. LABORATORY STUDIES: White count of 4.09, hemoglobin 10.3, and platelet 163. No new BMP. MICROBIOLOGY: Urine culture showed ESBL E. coli, resistant to cefepime. Blood culture is negative on 06/20. Urine culture was from 06/27, that was positive for ESBL E. coli. IMAGING: No new radiology studies available. ASSESSMENT AND PLAN: 1. Right Achilles/ankle area infection. Bone scan on 06/27/2020, is compatible with osteomyelitis in the posterior aspect of the right calcaneus. 2. Nausea. The patient had LFT and amylase and lipase done, which all are within normal limit. 3. Extended-spectrum beta-lactamases urine. 4. Renal insufficiency. 5. Obesity with a BMI of 36.9. The patient on Zyvox, cefepime off the medication list, apparently fell off the medication list last night. Restart the patient on Merrem. Continue to monitor the patient clinically and follow up with the labs. Discussed with Dr. Ruiz. Please refer to chart for more information. Dictated by Danielito Vieira PA-C (Al) Michaela Ruiz MD /MODL /[id number]
--- NOTE | 2020-06-30 15:53 | NUR ---
DRESSING CHANGED TO RIGHT FOOT S ORDERED. PATIENT SITTING AT BED SIDE WATCHING TV. CALL LIGHT AT REACH.
[2020-06-30] MEDS: DEPAKOTE ER 500MG TAB(ONCE DAILY) PO SCH (21:30)
[2020-06-30] MEDS: ATORVASTATIN 40 MG TAB PO SCH (21:30)
[2020-06-30] MEDS: MEROPENEM 500MG/ NS 50ML 50 ML IV SCH (21:30)
--- NOTE | 2020-06-30 21:30 | NUR ---
PATIENT REQUESTS TO DO NOT DISTURB FOR VITALS AT MIDNIGHT. INFORMED TECH, CONTINUING TO MONITOR.
[2020-07-01] VITALS (8 sets, daily range): BP systolic 113–134; BP diastolic 48–63
--- NOTE | 2020-07-01 01:33 | Progress Note ---
DATE: 06/30/2020 Nephrology Progress Note SUBJECTIVE: The patient is doing well today with no complaints. PHYSICAL EXAMINATION: VITAL SIGNS: Afebrile, normotensive. Respiratory rate is good. GENERAL: No acute distress. Alert and oriented x3. Cooperative on examination. HEENT: Head is normocephalic and atraumatic. Eyes; pupils are equal, round, and reactive to light bilaterally. Extraocular movements are intact bilaterally. Throat, no evidence of any erythema or exudates in the posterior pharynx. Has poor dentition. NECK: Supple. Good range of motion. PULMONARY: Clear to auscultation bilaterally. No wheezing, rales, rhonchi. No crackles appreciated. CARDIOVASCULAR: Positive S1, S2. No murmurs, rubs, or gallops appreciated. ABDOMEN: Soft, nondistended, nontender to palpation. Bowel sounds present. MUSCULOSKELETAL: Strength is 5/5 throughout. No evidence of any muscle deficits on examination. No weakness appreciated. SKIN: Intact. Warm to touch. Good cap refill. LABORATORY DATA: None today. IMPRESSION: 1. End-stage renal disease, on hemodialysis Wednesday, Wednesday, and Wednesday. 2. Secondary hyperparathyroidism. 3. Anemia of end-stage renal disease. 4. Right Achilles wound infection with underlying osteomyelitis. PLAN: At this time, get a.m. labs. Scheduled for HD tomorrow. Renal diet. Phosphorus binders. Follow with the primary team. MD RADHA Peterson/UGO /[id number]
[2020-07-01] MEDS: MORPHINE SULFATE 2 MG/ML SYR 1ML IV PRN ×3 (05:10→18:00)
[2020-07-01] MEDS: ONDANSETRON HCL INJ 2MG/ML 2ML 2 MG/ML VIAL IV PRN ×3 (05:10→18:30)
[2020-07-01 06:19] LABS: ANION GAP 20.7 mmol/L (8-16); CALCIUM 8.7 mg/dL (8.4-10.2); CREATININE, SERUM 6.61 mg/dL (0.57-1.11); POTASSIUM 5.7 mmol/L (3.5-5.1)
--- NOTE | 2020-07-01 06:45 | NUR ---
BEDSIDE SBAR REPORT RECEIVED FROM PATRICK RN, PM SHIFT. PT FOUND AAOX4 RESTING IN BED, HOB ELEVATED 30 DEGREES IN NO ACUTE DISTRESS. PT IS ABLE TO MAKE NEEDS KNOWN AND DENIES ANY FURTHER NEEDS. PT WAS EDUCATED ON FALL RISK PRECAUTIONS AND PT VERBALIZED UNDERSTANDING. BREAKFAST TRAY SETUP PROVIDED. CALL LIGHT AND BELONGINGS PLACED NEARBY. WILL CONTINUE TO MONITOR.
--- NOTE | 2020-07-01 07:00 | NUR ---
PT IS ON CONTACT ISOLATION FOR ESBL E.COLI IN THE URINE
[2020-07-01] MEDS: INSULIN REGULAR, HUMAN 100 UNIT/1 ML 3ML VIAL SQ SCH ×4 (07:30→21:00)
[2020-07-01] MEDS: SEVELAMER CARBONATE 800 MG TAB PO SCH ×3 (08:00→17:35)
[2020-07-01] MEDS: CALCIUM ACETATE 667 MG GELCAP PO SCH ×3 (08:00→17:35)
[2020-07-01] MEDS: MIDODRINE HCL 5 MG TABLET PO PRN (09:07)
[2020-07-01] MEDS: PANTOPRAZOLE SOD 40 MG TABEC PO SCH (14:03)
[2020-07-01] MEDS: LINEZOLID 600 MG TAB PO SCH ×2 (14:04→21:59)
[2020-07-01] MEDS: ROPINIROLE HCL 0.25 MG TAB PO SCH ×3 (14:04→21:59)
[2020-07-01] MEDS: CARVEDILOL 3.125 MG TAB PO SCH ×2 (14:04→17:00)
--- NOTE | 2020-07-01 15:55 | NUR ---
INFECTIOUS DISEASE PROGRESS NOTE DR. ARRIOLA SUBJECTIVE: The patient is seen and evaluated. Available labs and notes reviewed. Discussed with the nurse. REVIEW OF SYSTEMS: Remains with nausea and right foot pain. Poor appetite secondary to nausea. PHYSICAL EXAMINATION: VITAL SIGNS: reviewed GENERAL: Awake and alert. Weak. CV: S1 and S2. CHEST: Equal expansion. No acute distress. ABDOMEN: Soft and nontender. Positive bowel sounds. HEENT: Moist. No pallor. No JVD. EXTREMITIES: Right foot wound on the medial side of the ankle seen with some drainage that was expressed during my examination, which is brown-colored, seems like pus. MEDICATIONS: Medication list reviewed and from ID point of view, the patient is on Zyvox, Cefepime LABORATORY STUDIES: reviewed MICROBIOLOGY: Urine culture showed ESBL E. coli, resistant to cefepime. Blood culture is negative on 06/20. Urine culture was from 06/27, that was positive for ESBL E. coli. IMAGING: No new radiology studies available. ASSESSMENT AND PLAN: 1. Right Achilles/ankle area infection. Bone scan on 06/27/2020, is compatible with osteomyelitis in the posterior aspect of the right calcaneus. 2. Nausea. The patient had LFT and amylase and lipase done, which all are within normal limit. 3. Extended-spectrum beta-lactamases urine. 4. Renal insufficiency. 5. Obesity with a BMI of 36.9. 6 weeks of Merrem and oral Zyvox, CM to arrange. f/u with podiatry, can see me in clinic in 4 weeks weekly CBC, CMP, ESR, CRP faxed to [phone] Luiza Osei MSN, SECTION MAINTAINER, AGACNP-BC Dr. Arriola
--- NOTE | 2020-07-01 18:46 | Progress Note ---
DATE: 07/01/2020 CONSULTANTS: 1. Dr. Young, Nephrology. 2. Dr. Manrique, Wound Care. 3. Dr. Ruiz, ID. 4. Dr. Khan, Podiatry. 5. Dr. Connolly, Orthopedics. SUBJECTIVE: The patient is seen while dialysis is in progress. She denies any fever, chills, nausea, vomiting, shortness of breath, or chest pain. PHYSICAL EXAMINATION: VITAL SIGNS: Temperature 98.0, pulse is 69, respirations 18, blood pressure 125/52, pulse ox is 97% on room air. GENERAL: No acute distress. HEENT: Normocephalic and atraumatic. NECK: Supple. LUNGS: Decreased breath sounds. CARDIOVASCULAR: Regular rate and rhythm. GI: Soft and nontender, obese. NEUROLOGIC: Alert, awake, and oriented x3. MUSCULOSKELETAL: Moves all extremities. SKIN: Right lower extremity dressing intact. PSYCH: Calm. LABORATORY DATA: Sodium 136, potassium 5.7, CO2 of 25, BUN is 41, creatinine 6.61, glucose 71, calcium 8.7. IMPRESSION: 1. Right calcaneus osteomyelitis and Achilles sepsis. Wound culture negative. We will continue on Zyvox and Merrem per ID. She will need outpatient followup with Podiatry for further intervention. 2. Hypertension. Continue carvedilol. 3. Type 2 diabetes. Continue sliding scale insulin. 4. End-stage renal disease. Continue dialysis on Wednesday, Wednesday, and Wednesday per Renal. 5. High cholesterol. 6. Urinary tract infection. Urine culture is positive for Escherichia coli with extended-spectrum beta-lactamases. Merrem daily per ID. 7. Neuropathy and fibromyalgia. Continue pain management as needed. 8. Gastrointestinal and deep venous thrombosis prophylaxis. PPI and heparin subcu. PLAN: To await on final antibiotics recommendation and home health for wound care and we will discharge home on antibiotics of ID choice, to follow up with Podiatry outpatient. Dictated by TAMERA Sigala Hawaching Carlton Marino MD MY/MODL /[id number]
--- NOTE | 2020-07-01 19:15 | NUR ---
RECEIVED THE PT IN REPORT. EDUCATED PT ABOUT FALL PRECAUTIONS. PT VERBALIZED UNDERSTANDING. BED IS LOW AND LOCKED. SIDE RAILS X2. CALL LIGHT WITH IN EASY REACH. BED ALARM IS ON. ALL SAFETY MEASURES IN PLACE. PT DENIES NEEDS AT THIS TIME.
--- NOTE | 2020-07-01 19:52 | Progress Note ---
DATE: 06/30/2020 CONSULTANTS: 1. Dr. Young, Nephrology. 2. Dr. Manrique, Wound Care. 3. Dr. Ruiz, ID. 4. Dr. Khan, Podiatry. 5. Dr. Connolly, orthopedics. SUBJECTIVE: The patient with no complaints, no fever, chills, chest pain, shortness of breath, nausea, or vomiting. PHYSICAL EXAMINATION: VITAL SIGNS: Temperature 97.7, pulse is 60, respirations 20, blood pressure 131/58, pulse ox is 98% on room air. GENERAL: Fatigue. HEENT: Normocephalic, atraumatic. NECK: Supple. LUNGS: Decreased breath sounds. CARDIOVASCULAR: Regular rate and rhythm. GI: Soft and nontender, obese. NEUROLOGIC: Alert, awake, and oriented x3 MUSCULOSKELETAL: Moves all extremities. No edema. No edema. SKIN: Right lower extremity dressing intact. PSYCH: Calm. LABORATORY DATA: Urine culture is positive for E coli with ESBL. IMPRESSION: 1. Right calcaneus osteomyelitis with an Achilles sepsis. Wound culture noted, status post bedside debridement. Continue Zyvox and Merrem added per ID. confirms osteomyelitis, pending orthopedic intervention. 2. Urinary tract infection. Urine culture positive for E coli with ESBL. Merrem started per ID. 3. Hypertension. Continue carvedilol. 4. Diabetes type 2. Continue sliding scale insulin. 5. End-stage renal disease. Dialysis Wednesday, Wednesday, and Wednesday per renal. 6. High cholesterol. Continue statin. 7. Neuropathy and fibromyalgia. Pain management as needed. 8. GI and DVT prophylaxis. PPI and heparin subcu. PLAN: Continue antibiotics per ID and await on orthopedic recommendations. Dictated by TAMERA Sigala Samuel Marino MD MY/MODL /[id number]
[2020-07-01] MEDS: MEROPENEM 500MG/ NS 50ML 50 ML IV SCH (21:45)
[2020-07-01] MEDS: ATORVASTATIN 40 MG TAB PO SCH (21:58)
[2020-07-01] MEDS: DEPAKOTE ER 500MG TAB(ONCE DAILY) PO SCH (21:58)
--- NOTE | 2020-07-01 23:08 | Consultation ---
DATE OF CONSULTATION: 07/01/2020 Dr. Young. PRIMARY CARE PHYSICIAN: Dr. Jaspreet Patten REASON FOR CONSULTATION: Right posterior ankle ulceration. CHIEF COMPLAINT/HISTORY OF PRESENT ILLNESS: This is a pleasant 60-year-old female, who is admitted in regard to hypertension, diabetes, urinary tract infection, end-stage renal disease, sleep apnea, neuropathy, fibromyalgia, with history of Achilles tendon repair in 2018, however, she was primarily admitted in regard to redness and swelling in the posterior ankle. The patient states she was having a pain. The patient states that a few days ago, she was getting a shower, noted that she all discharged from right ankle and went to the emergency department. She denies any nausea, vomiting, fever, chills, thigh pain, chest pain, calf pain, or shortness of breath. However, she has had a history of an issue or infection on this Achilles. She currently denies any nausea, vomiting, fever, chills, thigh pain, chest pain, calf pain, or shortness of breath. PAST MEDICAL HISTORY: As stated above. PAST SURGICAL HISTORY: 1. Cholecystectomy. 2. Appendectomy. 3. Bariatric surgery. 4. AV fistula, left upper extremity. 5. Right Achilles repair. 6. Carpal tunnel both hands. FAMIL MEDICAL HISTORY: Mother and father both had coronary artery disease, siblings with diabetes. SOCIAL HISTORY: The patient has alcohol, tobacco, and IV drug use. She currently lives with her . ALLERGIES: NIFEDIPINE AND VANCOMYCIN. REVIEW OF SYSTEMS: See admission history and physical. PHYSICAL EXAMINATION: GENERAL: The patient is alert, awake, and oriented x3, currently in no acute distress. VITAL SIGNS: Temperature is 98.9, pulse 75, respiratory rate is 18,blood pressure is 113/48. EXTREMITIES: The patient does have a small ulceration linear in nature measuring approximately 2.5 cm x 1 cm red moist granular base. The inferior aspect does have a small area of seropurulent drainage, however, there is proximal erythema streaking and essentially no edema along the posterior right ankle. Achilles tendon is not exposed. There is a granulation tissue present. No surrounding hyperkeratotic tissue is noted. VASCULAR: The patient has +4/4 DP and PT pulses bilaterally. SKIN: Temperature from proximal to distal is warm to warm from proximal to distal on the right lower extremity. NEUROLOGIC: The patient has reduced , however, there is pain to palpation. ORTHOPEDIC: Minimal stress in dorsiflexion, plantarflexion, inversion, eversion, all 5/5, except for plantarflexion, which is 4/5. LABORATORY/DIAGNOSTIC DATA: WBC is 4.09, RBC is 3.18, hemoglobin 10.3, hematocrit is 34.2, platelet count is 163. Sodium today on 07/01 is 136, potassium 5.7, chloride is 96, BUN 41, creatinine 6.61, glucose 71. MRI performed on 06/24 of the right ankle postsurgical change in the Achilles tendon with partial tear in the medial fibers. A 5 cm fluid collection, possible abscess extent to the calcaneus with osteomyelitis. balloon stent compatible with osteomyelitis in the posterior aspect of the right calcaneus. ASSESSMENT: 1. Osteomyelitis of right calcaneus. 2. Small fluid collection possible abscess, however, given the fact that there was no erythema and very minimal if any edema. It does appear that the IV antibiotics are allowing improvement on this wound. 3. IV antibiotics per Dr. Ruiz. I do agree with 6 weeks of IV antibiotics. 4. Local wound care consisting of Santyl or mupirocin, twice in a day would be recommend. 5. Offloading is recommended as well. 6. Further recommendations will be pending patient's clinical progression. Dr. Patten, thank you for this consultation. We will be happy to follow this patient with you. This is Dr. Esparza covering for Dr. Biju Khan. Dakota Esparza DPM MM/UGO /[id number]
[2020-07-02] VITALS (8 sets, daily range): BP systolic 103–151; BP diastolic 59–70
[2020-07-02] MEDS: ONDANSETRON HCL INJ 2MG/ML 2ML 2 MG/ML VIAL IV PRN ×3 (00:31→21:51)
[2020-07-02] MEDS: MORPHINE SULFATE 2 MG/ML SYR 1ML IV PRN ×2 (05:36→21:51)
--- NOTE | 2020-07-02 06:19 | NUR ---
Consent has not obtained for central line placement.because pt stated that "needs to discuss with md".left message to tanna jasso np.
--- NOTE | 2020-07-02 06:45 | NUR ---
BEDSIDE SBAR REPORT RECEIVED FROM RIYA ANGELO, PM SHIFT. PT FOUND RESTING IN BED EASILY AROUSED IN NO ACUTE DISTRESS. PT IS ABLE TO MAKE NEEDS KNOWN AND DENIES ANY NEEDS. PT WAS MADE AWARE OF NPO ORDER FOR CENTRAL LINE PLACEMENT. CONSENT SIGNED BY PATIENT AND PLACED ON CHART. PT WAS EDUCATED ON FALL RISK PRECAUTIONS AND VERBALIZED UNDERSTANDING. CALL LIGHT AND BELONGINGS PLACED NEARBY. WILL CONTINUE TO MONITOR.
[2020-07-02] MEDS: INSULIN REGULAR, HUMAN 100 UNIT/1 ML 3ML VIAL SQ SCH ×4 (07:30→21:33)
[2020-07-02] MEDS: CALCIUM ACETATE 667 MG GELCAP PO SCH ×3 (08:00→16:52)
[2020-07-02] MEDS: SEVELAMER CARBONATE 800 MG TAB PO SCH ×3 (08:00→16:52)
[2020-07-02] MEDS: ROPINIROLE HCL 0.25 MG TAB PO SCH ×3 (08:19→21:09)
[2020-07-02] MEDS: PANTOPRAZOLE SOD 40 MG TABEC PO SCH (08:19)
[2020-07-02] MEDS: LINEZOLID 600 MG TAB PO SCH ×2 (08:19→21:09)
[2020-07-02] MEDS: CARVEDILOL 3.125 MG TAB PO SCH ×2 (08:20→16:52)
[2020-07-02 08:53] LABS: INR 1.08; PROTHROMBIN TIME 14.6 seconds (11.9-14.5)
--- NOTE | 2020-07-02 10:34 | Progress Note ---
DATE: Nephrology Progress Note SUBJECTIVE: The patient had HD today with no issues. Potassium was elevated, in which she did receive dialysis. OBJECTIVE: VITAL SIGNS: Afebrile, normotensive, respiratory rate is good. General: No acute distress. Alert and oriented x3. Cooperative on examination. PULMONARY: Clear to auscultation bilaterally. No wheezing, rales, or rhonchi. No crackles appreciated. CARDIOVASCULAR: Positive S1 and S2. No murmurs, rubs, or gallops appreciated. ABDOMEN: Soft, nondistended, nontender to palpation. Bowel sounds present. MUSCULOSKELETAL: Strength is 5/5 throughout. No evidence of any muscle deficits on examination. No weakness appreciated. NEUROLOGICAL: Cranial nerves II through XII grossly intact. No evidence of any neurological deficits on exam. SKIN: Intact. Warm to touch. Good cap refill. PSYCHIATRIC: Normal affect and mood. EXTREMITIES: No edema. Good range of motion throughout. LABORATORY DATA: CBC is stable. Chemistry, pertinent positive; potassium is 5.7, BUN 41, creatinine 6.6. MICROBIOLOGY: Urine culture shows ESBL E coli. IMPRESSION: 1. End-stage renal disease, on hemodialysis Wednesday, Wednesday, and Wednesday. 2. Secondary hyperparathyroidism. 3. Anemia of end-stage renal disease. 4. Right Achilles wound infection with underlying osteomyelitis. PLAN: The patient had HD today with 2K bath 2.5 calcium, ultrafiltration on 3 L, 3-1/2 hours duration. Renal diet. Phosphorus binders. We will continue to monitor closely. Follow with primary team. MD RADHA Peterson/UGO /[id number]
--- NOTE | 2020-07-02 12:37 | NUR ---
PT SIGNED CHOICE FOR [facility], FILED IN CHART, COMP-LETED PASRR RTF, AND COVID FORM TO BE FAXED TO FACILITY.
[2020-07-02] MEDS ORDERED: LIDOCAINE HCL 1% LOCAL INJ 20 ML VIAL ONE (13:06)
[2020-07-02] MEDS ORDERED: SODIUM CHLORIDE 0.9% 250ML 250 ML ONE (13:06)
[2020-07-02] MEDS ORDERED: MIDAZOLAM HCL 2 MG/2 ML VIAL ONE (13:16)
[2020-07-02] MEDS ORDERED: FENTANYL CITRATE/PF 100MCG/2 ML INJ ONE (13:16)
--- NOTE | 2020-07-02 16:51 | Progress Note ---
DATE: 07/02/2020 CONSULTANTS: 1. Dr. Young, Nephrology. 2. Dr. Manrique, Wound Care. 3. Dr. Ruiz, ID. 4. Dr. Khan, Podiatry. 5. Dr. Connolly, Orthopedics. SUBJECTIVE: The patient is alert, awake, and oriented x3. Denies any fever, chills, nausea, vomiting, shortness of breath or chest pain. Seen the patient with Dr. Connolly, Orthopedics and explained treatment plan, which the patient agrees with. All questions answered. PHYSICAL EXAMINATION: VITAL SIGNS: Temperature 97.8, pulse is 66, respirations 20, blood pressure 113/59, and pulse ox is 97% on room air. GENERAL: No acute distress. HEENT: Normocephalic, atraumatic. NECK: Supple. LUNGS: With decreased breath sounds. CARDIOVASCULAR: Regular rate and rhythm. GI: Soft, nontender. NEUROLOGIC: Alert, awake, and oriented x3. MUSCULOSKELETAL: Moves all extremities. SKIN: Right lower extremity dressing changed, small opening with scant purulent discharge. PSYCH: Calm. LABORATORY DATA: No labs done today. IMPRESSION: 1. Right calcaneus osteomyelitis and Achilles abscess. Wound culture was negative. We will continue with Zyvox and Merrem per Infectious Disease. We will follow up with Podiatry for further intervention. 2. Hypertension. Continue carvedilol. 3. Type 2 diabetes. Continue sliding scale insulin. 4. End-stage renal disease. Dialysis on Wednesday, Wednesday, Wednesday per Renal. 5. High cholesterol. 6. Urinary tract infection. Urine culture positive for Escherichia coli with extended-spectrum beta-lactamases. Merrem daily per Infectious Disease. 7. Neuropathy and fibromyalgia. Pain management as needed. 8. Gastrointestinal and deep venous thrombosis prophylaxis. Proton pump inhibitor and heparin subcu. PLAN: Tunneled central line has been placed for IV antibiotics, we will plan to discharge to senior living facility for IV antibiotics and wound care. She is to follow up with Podiatry as an outpatient for the right calcaneus osteomyelitis. Discussed with Dr. Connolly and the patient and agrees with plan. Dictated by Aurea Moreira, TAMERA Samuel Marino MD MY/MODL /[id number]
--- NOTE | 2020-07-02 16:58 | Diagnostic Imaging Report ---
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 IMPRESSION: Insertion of right-sided dual-lumen tunneled central venous catheter, with tip in the expected location of the cavoatrial junction. Plan: The catheter may be used immediately. PROCEDURE SUMMARY: - Venous access with ultrasound guidance - Tunneled central venous catheter insertion with fluoroscopic guidance - Additional procedure(s): None PROCEDURE DETAILS: Pre-procedure Consent: Informed consent for the procedure including risks, benefits and alternatives was obtained and time-out was performed prior to the procedure. Preparation (MIPS): The site was prepared and draped using all elements of maximal sterile barrier technique including sterile gloves, sterile gown, cap, mask, large sterile sheet, sterile ultrasound probe cover, hand hygiene and cutaneous antisepsis with 2% chlorhexidine. Medical reason for site preparation exception (MIPS): Not applicable Anesthesia/sedation Level of anesthesia/sedation: Moderate sedation (conscious sedation) 1mg Versed, 50mcg fentanyl Anesthesia/sedation administered by: Independent trained observer under attending supervision with continuous monitoring of the patient?s level of consciousness and physiologic status Total intra-service sedation time (minutes): 30 Access Local anesthesia was administered. The vessel was sonographically evaluated and determined to be patent. Real time ultrasound was used to visualize needle entry into the vessel and a permanent image was stored. Vein accessed: Internal jugular vein Access technique: Micropuncture set with 21 gauge needle Catheter placement An incision was made near the venous access site and the catheter was tunneled subcutaneously to the venous access site and trimmed to appropriate length. The catheter was advanced via a peel-away sheath into the vein under fluoroscopic guidance. Catheter tip location was fluoroscopically verified and a permanent image was stored. Catheter placed: Snapshot Interactive PowerLine Catheter size (Thai): 6 Catheter flush: Normal saline Closure A sterile dressing was applied. Access site closure technique: Tissue adhesive Catheter securement technique: Non-absorbable suture Contrast Contrast agent: None Contrast volume (mL): NA Radiation Dose Fluoroscopy time (minutes): 0.5 Reference air kerma (mGy): 2.9 Additional Details Additional description of procedure: None Equipment details: None Specimens removed: None Estimated blood loss (mL): Less than 10 Standardized report: [email or web address] Attestation Signer name: Hodan Nath MD I attest that I was present for the entire procedure. I reviewed the stored images and agree with the report as written. Signed by: Hodan Nath MD on 07/02/2020 4:55 PM
--- NOTE | 2020-07-02 16:58 | Diagnostic Imaging Report ---
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 IMPRESSION: Insertion of right-sided dual-lumen tunneled central venous catheter, with tip in the expected location of the cavoatrial junction. Plan: The catheter may be used immediately. PROCEDURE SUMMARY: - Venous access with ultrasound guidance - Tunneled central venous catheter insertion with fluoroscopic guidance - Additional procedure(s): None PROCEDURE DETAILS: Pre-procedure Consent: Informed consent for the procedure including risks, benefits and alternatives was obtained and time-out was performed prior to the procedure. Preparation (MIPS): The site was prepared and draped using all elements of maximal sterile barrier technique including sterile gloves, sterile gown, cap, mask, large sterile sheet, sterile ultrasound probe cover, hand hygiene and cutaneous antisepsis with 2% chlorhexidine. Medical reason for site preparation exception (MIPS): Not applicable Anesthesia/sedation Level of anesthesia/sedation: Moderate sedation (conscious sedation) 1mg Versed, 50mcg fentanyl Anesthesia/sedation administered by: Independent trained observer under attending supervision with continuous monitoring of the patient?s level of consciousness and physiologic status Total intra-service sedation time (minutes): 30 Access Local anesthesia was administered. The vessel was sonographically evaluated and determined to be patent. Real time ultrasound was used to visualize needle entry into the vessel and a permanent image was stored. Vein accessed: Internal jugular vein Access technique: Micropuncture set with 21 gauge needle Catheter placement An incision was made near the venous access site and the catheter was tunneled subcutaneously to the venous access site and trimmed to appropriate length. The catheter was advanced via a peel-away sheath into the vein under fluoroscopic guidance. Catheter tip location was fluoroscopically verified and a permanent image was stored. Catheter placed: eCollect PowerLine Catheter size (Tanzanian): 6 Catheter flush: Normal saline Closure A sterile dressing was applied. Access site closure technique: Tissue adhesive Catheter securement technique: Non-absorbable suture Contrast Contrast agent: None Contrast volume (mL): NA Radiation Dose Fluoroscopy time (minutes): 0.5 Reference air kerma (mGy): 2.9 Additional Details Additional description of procedure: None Equipment details: None Specimens removed: None Estimated blood loss (mL): Less than 10 Standardized report: [email or web address] Attestation Signer name: Hodan Nath MD I attest that I was present for the entire procedure. I reviewed the stored images and agree with the report as written. Signed by: Hodan Nath MD on 07/02/2020 4:55 PM
--- NOTE | 2020-07-02 16:58 | Diagnostic Imaging Report ---
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 IMPRESSION: Insertion of right-sided dual-lumen tunneled central venous catheter, with tip in the expected location of the cavoatrial junction. Plan: The catheter may be used immediately. PROCEDURE SUMMARY: - Venous access with ultrasound guidance - Tunneled central venous catheter insertion with fluoroscopic guidance - Additional procedure(s): None PROCEDURE DETAILS: Pre-procedure Consent: Informed consent for the procedure including risks, benefits and alternatives was obtained and time-out was performed prior to the procedure. Preparation (MIPS): The site was prepared and draped using all elements of maximal sterile barrier technique including sterile gloves, sterile gown, cap, mask, large sterile sheet, sterile ultrasound probe cover, hand hygiene and cutaneous antisepsis with 2% chlorhexidine. Medical reason for site preparation exception (MIPS): Not applicable Anesthesia/sedation Level of anesthesia/sedation: Moderate sedation (conscious sedation) 1mg Versed, 50mcg fentanyl Anesthesia/sedation administered by: Independent trained observer under attending supervision with continuous monitoring of the patient?s level of consciousness and physiologic status Total intra-service sedation time (minutes): 30 Access Local anesthesia was administered. The vessel was sonographically evaluated and determined to be patent. Real time ultrasound was used to visualize needle entry into the vessel and a permanent image was stored. Vein accessed: Internal jugular vein Access technique: Micropuncture set with 21 gauge needle Catheter placement An incision was made near the venous access site and the catheter was tunneled subcutaneously to the venous access site and trimmed to appropriate length. The catheter was advanced via a peel-away sheath into the vein under fluoroscopic guidance. Catheter tip location was fluoroscopically verified and a permanent image was stored. Catheter placed: Binary Fountain PowerLine Catheter size (Nigerien): 6 Catheter flush: Normal saline Closure A sterile dressing was applied. Access site closure technique: Tissue adhesive Catheter securement technique: Non-absorbable suture Contrast Contrast agent: None Contrast volume (mL): NA Radiation Dose Fluoroscopy time (minutes): 0.5 Reference air kerma (mGy): 2.9 Additional Details Additional description of procedure: None Equipment details: None Specimens removed: None Estimated blood loss (mL): Less than 10 Standardized report: [email or web address] Attestation Signer name: Hodan Nath MD I attest that I was present for the entire procedure. I reviewed the stored images and agree with the report as written. Signed by: Hodan Nath MD on 07/02/2020 4:55 PM
--- NOTE | 2020-07-02 18:51 | Progress Note ---
DATE: SUBJECTIVE: I had a very lengthy discussion today with the patient, Internal Medicine, wound care as well as Orthopedic. The patient has no complaints, but there is concern about her foot and her wound. She probably would need surgical debridement by Dr. Connolly, who is working to arrange for [facility]. The patient fully understands this. The patient, who has colonized with E. coli ESBL. We are going to arrange for a line for her, which was arranged. She has been transferred to [facility] for meropenem 500 daily for 6 weeks. She does have open wound on her foot, still with some drainage. The cultures from the wound did not show anything so far. PLAN: To continue with meropenem until she see a nursing education specialist, which is currently arranged by Orthopedic. To see me in my office in 2 to 3 weeks. Weekly CBC. Weekly chem panel. Discussed with Internal Medicine. Discussed with the patient. Answered all her questions. The possibility she may lose her leg is discussed with the patient and Internal Medicine. MD ADELA Richter/UGO /[id number]
[2020-07-02] MEDS: MEROPENEM 500MG/ NS 50ML 50 ML IV SCH (21:08)
[2020-07-02] MEDS: DEPAKOTE ER 500MG TAB(ONCE DAILY) PO SCH (21:09)
[2020-07-02] MEDS: ATORVASTATIN 40 MG TAB PO SCH (21:09)
--- NOTE | 2020-07-03 01:32 | Progress Note ---
DATE: 07/02/2020 Nephrology Progress Note SUBJECTIVE: The patient is currently doing well with no complaints. She did have HD today as per schedule. PHYSICAL EXAMINATION: VITAL SIGNS: Afebrile, normotensive, respiratory rate is good. GENERAL: No acute distress. Alert and oriented x3. Cooperative on examination. HEENT: Head is normocephalic and atraumatic. Eyes; pupils are equal, round, and reactive to light bilaterally. PULMONARY: Clear to auscultation. No wheezing, rales, or rhonchi. No crackles appreciated. CARDIOVASCULAR : Positive S1 and S2. No murmurs, rubs, or gallops appreciated. ABDOMEN: Soft, nondistended, nontender to palpation. Bowel sounds present. MUSCULOSKELETAL: Strength is 5/5 throughout. No evidence of any muscle deficits on examination. No weakness appreciated. LABORATORY DATA: Labs reviewed and stable. IMPRESSION: 1. End-stage renal disease, on hemodialysis, Wednesday, , and Wednesday. 2. Anemia of end-stage renal disease. 3. Secondary hyperparathyroidism. 4. Foot wound infection. PLAN: At this time, HD was performed today as per schedule with 2K bath, 2.5 calcium, ultrafiltration 3 L, duration 4 hours. Phosphorus binders. Renal diet. We will continue the same plan of care and monitor very closely. MD RADHA Peterson/RENEEL /[id number]
--- NOTE | 2020-07-03 01:40 | NUR ---
RESTING IN THE BED.STABLE CONDITION.
[2020-07-03 04:00] VITALS: BP 126/97
[2020-07-03] MEDS: ONDANSETRON HCL INJ 2MG/ML 2ML 2 MG/ML VIAL IV PRN ×2 (04:03→08:22)
[2020-07-03] MEDS: MORPHINE SULFATE 2 MG/ML SYR 1ML IV PRN ×3 (04:04→16:11)
[2020-07-03 05:34] LABS: BASOPHILS % 0.3 % (0.0-1.0); EOSINOPHILS # (AUTO) 0.1 (0.0-0.4); EOSINOPHILS % 1.2 % (0.0-6.0); HEMATOCRIT 35.5 % (34.2-44.1); HEMOGLOBIN 10.6 g/dL (12.0-16.0); LYMPHOCYTES # (AUTO) 1.1 (1.0-3.2); LYMPHOCYTES % 15.9 % (18.0-39.1); MEAN CORPUSCULAR HEMOGLOBIN 30.8 pg (28-32); MEAN CORPUSCULAR HGB CONC 29.9 g/dL (31-35); MEAN CORPUSCULAR VOLUME 103.2 fL (81-99); MONOCYTES # (AUTO) 1.1 (0.2-0.8); MONOCYTES % 16.2 % (4.4-11.3); NEUTROPHILS # (AUTO) 4.2 (2.1-6.9); NEUTROPHILS % 64.1 % (38.7-80.0); PLATELET COUNT 134 x10e3/uL (140-360); RED BLOOD COUNT 3.44 x10e6/uL (3.6-5.1); RED CELL DISTRIBUTION WIDTH 15.9 % (11.7-14.4)
[2020-07-03 05:53] LABS: ANION GAP 21.5 mmol/L (8-16); CALCIUM 8.7 mg/dL (8.4-10.2); CREATININE, SERUM 6.01 mg/dL (0.57-1.11); POTASSIUM 5.5 mmol/L (3.5-5.1)
--- NOTE | 2020-07-03 06:50 | NUR ---
SBAR BEDSIDE REPORT RECEIVED FROM RIYA ANGELO, PM SHIFT. PT FOUND RESTING IN BED, EASILY AROUSED IN NO ACUTE DISTRESS. PT IS ABLE TO MAKE NEEDS KNOWN AND DENIES ANY NEEDS AT THIS TIME. PT WAS EDUCATED ON FALL RISK PRECAUTIONS AND VERBALIZED UNDERSTANDING. CALL LIGHT AND BELONGINGS PLACED NEARBY. BED WEIGHT OBTAINED. WILL CONTINUE TO MONITOR.
--- NOTE | 2020-07-03 07:15 | NUR ---
BED SIDE SHIFT REPORT GIVEN TO ONCOMING RN.STABLE CONDITION.
[2020-07-03] MEDS: INSULIN REGULAR, HUMAN 100 UNIT/1 ML 3ML VIAL SQ SCH ×3 (07:30→16:16)
[2020-07-03 07:57] VITALS: BP 125/54
[2020-07-03] MEDS: CALCIUM ACETATE 667 MG GELCAP PO SCH ×2 (08:00→13:02)
[2020-07-03] MEDS: SEVELAMER CARBONATE 800 MG TAB PO SCH ×2 (08:00→13:02)
[2020-07-03] MEDS: MIDODRINE HCL 5 MG TABLET PO PRN (08:12)
--- NOTE | 2020-07-03 08:13 | NUR ---
PER OSCAR AT DR HAINES OFFICE APPOINTMENT IS SET FOR WednesdayJUL 09 AT 1030AM, [address], [place] [address]; . NOTIFIED FACILITY, SURGEON AND CM.
--- NOTE | 2020-07-03 08:57 | NUR ---
SPOKE WITH PT EDUCATED ABOUT IMM, SIGNED, FILED IN CHART, WITH COPY LEFT WITH FAMILY AT BEDSIDE. GAVE INFORMATION ABOUT APPOINTMENT TYPED OUT WITH TIME LOCATION AND DR INFORMATION. LET HER KNOW THAT SHE WOULD BE TRANSFERRING TO [facility] TODAY AFTER DIALYSIS.
--- NOTE | 2020-07-03 10:59 | NUR ---
LONG-TERM FACILITY DISCHARGE INFORMATION PATIENT HAS BEEN ACCEPTED TO: NAME: SHAYNA MARTINEZ ADDRESS:[address] [place] [address] ACCEPTING MD:YOLIS ROOM: 206 NURSE CALL REPORT TO: [phone] IMM SIGNED AND OBTAINED (if applicable): IMM THE FOLLOWING DOCUMENTS MUST ACCOMPANY PATIENT FOR TRANSFER: COPIED CHART: PACKET AT STATION
[2020-07-03 11:37] VITALS: BP 102/49
[2020-07-03] MEDS: LINEZOLID 600 MG TAB PO SCH (13:02)
[2020-07-03] MEDS: PANTOPRAZOLE SOD 40 MG TABEC PO SCH (13:02)
[2020-07-03] MEDS: ROPINIROLE HCL 0.25 MG TAB PO SCH (13:02)
[2020-07-03] MEDS: CARVEDILOL 3.125 MG TAB PO SCH (13:03)
[2020-07-03 16:20] VITALS: BP 100/57
--- NOTE | 2020-07-03 18:00 | NUR ---
SBAR REPORT CALLED TO ARIE ANGELO, [facility]. PATIENT DISCHARGED TO FACILITY VIA AMBULANCE. CENTRAL LINE WAS LEFT IN PLACE FOR IV ANTIBIOTIC THERAPY DURING NEXT TRANSITION OF CARE. PATIENT RECEIVED DISCHARGE SUMMARY AND EDUCATION SHEETS. FAMILY WAS MADE AWARE.
--- NOTE | 2020-07-03 19:02 | Progress Note ---
DATE: SUBJECTIVE: Ms. Avila is doing really well. There is no new complaint. REVIEW OF SYSTEMS: At the present time, HEENT: Negative. PULMONARY: Negative. CARDIAC: Negative. PHYSICAL EXAMINATION: GENERAL: Currently alert, oriented. VITAL SIGNS: Stable, afebrile. HEENT: Normocephalic. NECK: Supple. CHEST: Clear bilateral. HEART: S1 and S2. ABDOMEN: Soft. Bowel sounds present. EXTREMITIES: No edema. SKIN: No rash. IMPRESSION: Osteomyelitis of the foot. Plan for her to see specialist in [facility]. End-stage renal disease, on hemodialysis. To continue with antibiotic as ordered. Going for an LTAC through [facility]. We will follow in 3 to 4 weeks. She is to see a human services program specialist in [facility]. MD ADELA Richter/UGO /[id number]
--- NOTE | 2020-07-03 23:07 | Discharge Summary ---
PCP: Dr. Jaspreet Patten. FINAL DISCHARGE DIAGNOSES: 1. Right calcaneus osteomyelitis and Achilles abscess. 2. Hypertension. 3. Type 2 diabetes. 4. End-stage renal disease, on dialysis. 5. High cholesterol. 6. Urinary tract infection. 7. Neuropathy and fibromyalgia. CONSULTANTS: 1. Dr. Young with Nephrology. 2. Dr. Ruiz, ID. 3. Dr. Manrique, Wound Care. 4. Dr. Connolly, Orthopedics. PROCEDURES: Bedside debridement. HISTORY: Per HPI. HOSPITAL COURSE: This is a 60-year-old female, who presented to the ER with right ankle abscess and drainage. She was started on IV antibiotics and Wound Care was consulted. Bedside debridement was done. Drained significant amount of drainage. She had an MRI done, which showed osteomyelitis of the calcaneus and Achilles tendon. Orthopedics was consulted as Dr. Connolly had done surgery on her 2 years ago on the Achilles tendon. Cultures were negative, she remained afebrile, with no leukocytosis, or pain. Infectious Disease, Dr. Ruiz was consulted, was started on Zyvox and Merrem. Orthopedics recommended a foot and ankle specialist, who specializes in calcaneus and Achilles tendon, recommended Dr. Edwards for evaluation, appointment has been made 1 week from now. [facility] with Merrem IV daily and follow up for further intervention. She also had urinary tract infection with E coli ESBL, which is sensitive to Merrem as well. PHYSICAL EXAMINATION: VITAL SIGNS: Temperature 97.9, pulse is 73, respirations 18, blood pressure 102/49, pulse ox is 99% on room air. GENERAL: No acute distress. HEENT: Normocephalic and atraumatic. NECK: Supple. LUNGS: Clear to auscultation. CARDIOVASCULAR: Regular rate and rhythm. GI: Soft and nontender. NEUROLOGIC: Alert, awake, and oriented x3. MUSCULOSKELETAL: Moves all extremities. PSYCH: Calm. CONDITION AT DISCHARGE: Improved and stable. DISCHARGE MEDICATIONS: Please see medication reconciliation list. FOLLOWUP: Follow up with Nephrology for dialysis on Wednesday, Wednesday, and Wednesday. Follow up with Dr. Edwards at [facility] per appointment next week. Follow up with PCP in 1 to 2 weeks and Infectious Disease in 1 to 2 weeks. TIME SPENT: Total discharge time is 32 minutes. Dictated by Aurea Moreira, ANP MD MIKE Barrett/UGO /[id number] cc: Jaspreet Patten
--- NOTE | 2020-07-04 02:08 | Progress Note ---
DATE: 07/03/2020 Nephrology Progress Note SUBJECTIVE: The patient had received HD today with no complaints. PHYSICAL EXAMINATION: VITAL SIGNS: Afebrile. Normotensive. GENERAL: In no acute distress. Alert and oriented x3. Cooperative on examination. PULMONARY: Clear to auscultation bilaterally. No wheezing, no rales, no rhonchi, no crackles appreciated. CARDIOVASCULAR: Positive S1 and S2. No murmurs, rubs, or gallops appreciated. ABDOMEN: Soft, nondistended, and nontender to palpation. Bowel sounds present. MUSCULOSKELETAL: Strength is 5/5 throughout. LABORATORY DATA: Labs reviewed shows elevated potassium. IMPRESSION: 1. End-stage renal disease, on hemodialysis, scheduled for hemodialysis today. 2. Secondary hyperparathyroidism. 3. Anemia of end-stage renal disease. PLAN: At this time, HD performed today with 2K bath 2.5 calcium, duration other 4 hours with ultrafiltration 3 L. Continue same plan of care. Monitor closely. Phosphorus binders. Renal diet. MD RADHA Peterson/MODL /[id number]
== END 2020-07-03 17:50 | DRG 500 ==
LOC: ER 08:35 → ERHOLD 11:54 → MED/SURG2 13:23
PROVIDERS: ADMIT Internal Medicine; ATTEND Internal Medicine
PROC: 0J9Q0ZZ Drainage of Right Foot Subcutaneous Tissue and Fascia, Open Approach (ICD-10-PCS; principal; 2020-06-21)
PROC: 5A1D70Z Performance of Urinary Filtration, Intermittent, Less than 6 Hours Per Day (ICD-10-PCS; 2020-06-21)
PROC: 5A1D70Z Performance of Urinary Filtration, Intermittent, Less than 6 Hours Per Day (ICD-10-PCS; 2020-06-24)
PROC: 5A1D70Z Performance of Urinary Filtration, Intermittent, Less than 6 Hours Per Day (ICD-10-PCS; 2020-06-26)
PROC: 5A1D70Z Performance of Urinary Filtration, Intermittent, Less than 6 Hours Per Day (ICD-10-PCS; 2020-06-28)
PROC: 5A1D70Z Performance of Urinary Filtration, Intermittent, Less than 6 Hours Per Day (ICD-10-PCS; 2020-07-01)
PROC: 0JH63XZ Insertion of Tunneled Vascular Access Device into Chest Subcutaneous Tissue and Fascia, Percutaneous Approach (ICD-10-PCS; 2020-07-02)
PROC: 02HV33Z Insertion of Infusion Device into Superior Vena Cava, Percutaneous Approach (ICD-10-PCS; 2020-07-02)
PROC: B548ZZA Ultrasonography of Superior Vena Cava, Guidance (ICD-10-PCS; 2020-07-02)
PROC: 5A1D70Z Performance of Urinary Filtration, Intermittent, Less than 6 Hours Per Day (ICD-10-PCS; 2020-07-03)
DX: M86.171 Other acute osteomyelitis, right ankle and foot (principal); N18.6 End stage renal disease; L03.115 Cellulitis of right lower limb; I12.0 Hypertensive chronic kidney disease with stage 5 chronic kidney disease or end stage renal disease; N25.81 Secondary hyperparathyroidism of renal origin; N39.0 Urinary tract infection, site not specified; Z16.12 Extended spectrum beta lactamase (ESBL) resistance; M65.071 Abscess of tendon sheath, right ankle and foot; E11.22 Type 2 diabetes mellitus with diabetic chronic kidney disease; Z99.2 Dependence on renal dialysis; Z87.440 Personal history of urinary (tract) infections; E78.5 Hyperlipidemia, unspecified; G47.30 Sleep apnea, unspecified; E78.00 Pure hypercholesterolemia, unspecified; E11.42 Type 2 diabetes mellitus with diabetic polyneuropathy; M79.7 Fibromyalgia; Z98.84 Bariatric surgery status; Z88.1 Allergy status to other antibiotic agents; Z88.8 Allergy status to other drugs, medicaments and biological substances; Z83.3 Family history of diabetes mellitus; Z82.49 Family history of ischemic heart disease and other diseases of the circulatory system; K21.9 Gastro-esophageal reflux disease without esophagitis; E87.5 Hyperkalemia; D63.1 Anemia in chronic kidney disease; E66.9 Obesity, unspecified; Z68.36 Body mass index [BMI] 36.0-36.9, adult; B96.20 Unspecified Escherichia coli [E. coli] as the cause of diseases classified elsewhere; Z11.59 Encounter for screening for other viral diseases; Z79.4 Long term (current) use of insulin
CPT/HCPCS: 36415; 36558; 70450; 74470; 76937; 77001; 78315; 80048; 80053; 80076; 82150; 82728; 82948; 83525; 83540; 83605; 83690; 83970; 84100; 84132; 84466; 85025; 85610; 86704; 86706; 87040; 87071; 87075; 87086; 87186; 87205; 87340; 90962; 94640; 99152; 99153; 99284; A9503; A9521; A9570; J0610; J0692; J1644; J1815; J1817; J1940; J2001; J2250; J2270; J2405; J3010; J3370; J7030; J7050; J7799; Q0162; U0002

== ENCOUNTER 2020-07-08 09:41 | Emergency (ER) | payer MEDICARE, OTHER ==
[~2020-07-08] VITALS: Ht 144.8 cm; Wt 74.8 kg
[~2020-07-08 09:41] MED LIST changes: +CRESTOR40 MG PO; +LYRICA150 MG PO
--- NOTE | 2020-07-08 09:50 | Emergency Department Note ---
History of Present Illnes History of Present Illness History of Present Illness This is a 60 year old female presents to the ED for evaluation of L UE pain after she impacted her arm on Wednesday. Dialysis MWF Historian: Patient, Polo Coach/EMS Arrival Mode: jordon Past Medical/Family History Physician Review I have reviewed the patient's past medical and family history. Any updates have been documented here. Past Medical History Past Medical History: Hypertension, Diabetes, UTI's Other Medical History: apnea, esrd Past Surgical History: Cholecysctectomy, Appendectomy, Bariatric Surgery Other Surgery: gastric bypass, fistula Other Last Tetanus: UNK Physical Exam Related Data Allergies: Coded Allergies: nifedipine (Verified Allergy, Severe, SWELLING, 06/20/20) vancomycin (Verified Allergy, Unknown, 06/20/20) Physical Exam CONSTITUTIONAL HENT EYES NECK PULMONARY CARDIOVASCULAR GASTROINTESTINAL GENITOURINARY SKIN MUSCULOSKELETAL NEUROLOGICAL PSYCHOLOGICAL Results Imaging Imaging results reviewed: Yes Impressions [place] [address] Patient Name: TAI GRANT MR #: [id number] : 1960 Age/Sex: 60/F Req #: [id number] Adm Physician: Ordered by: WELLINGTON LARKIN DO Report #: [id number] Location: ER Room/Bed: Procedure: [id number] DX/HUMERUS LEFT 2+VIEWS Exam Date: 07/08/20 Exam Time: 1040 REPORT STATUS: Signed Left femur, 2 views INDICATION: ^left arm pain ^[id number] ^1040 Comparison: None available. Discussion: Negative for grossly displaced fracture of the left femur. Partially visualized shoulder and elbow joints appear to be in anatomic alignment. A few surgical clips identified within the anterior soft tissues of the antecubital fossa. Soft tissues are otherwise unremarkable. Partially visualized lung parenchyma demonstrates prominent interstitial markings, likely related to expiratory phase imaging. IMPRESSION: Negative for acute displaced fracture of the left humerus. Signed by: Donovan Caballero MD on 07/08/2020 11:08 AM Dictated By: DONOVAN CABALLERO MD 07 Transcribed By: ROBI on 07/08/201107 COPY TO: WELLINGTON LARKIN ~ Procedures 12 Lead ECG Interpretation ECG Interpretation : ECG: ECG 1 Refining Supervisor: Interpreted by ED physician Date: Jul 08, 2020 Time: 09:59 Prior ECG tracings: reviewed Rhythm: sinus rhythm Rate: normal BPM: 67 QRS axis: normal ST segments normal: Yes T waves normal: Yes Clinical Impression: normal ECG Assessment & Plan Medical Decision Making MDM Diff Dx : Fx, bruising, dialysis access malfunctoin Assessment & Plan Final Impression: (1) ESRD (end stage renal disease) (2) Aneurysm (3) Hyperkalemia Home Meds Reported Medications Esomeprazole Magnesium (NEXIUM) 20 Mg Capsule.dr, 20 MG PO DAILY, CAP PROTONIX THERAPEUTIC INTERCHANGE PER [facility] 06/20/20 Rosuvastatin Calcium (CRESTOR) 40 Mg Tablet, 40 MG PO HS 06/20/20 Insulin Detemir (LEVEMIR) 100 Unit/1 Ml Vial, 60 UNITS SQ HS 03/19/20 Insulin Detemir (Levemir Flextouch) 100 Unit/1 Ml Insuln.pen, 16 UNITS SC DAILY, UNIT 03/19/20 Midodrine Hcl (MIDODRINE HCL) 5 Mg Tablet, 10 MG PO M,W,F, TAB 03/19/20 Midodrine Hcl (MIDODRINE HCL) 5 Mg Tablet, 5 MG PO T,TH,SAt, TAB 03/19/20 Clopidogrel Bisulfate (CLOPIDOGREL) 75 Mg Tablet, 75 MG PO DAILY, #30 TAB 03/19/20 Dicyclomine Hcl (DICYCLOMINE HCL) 10 Mg Capsule, 10 MG PO PRN 03/19/20 Promethazine Hcl (PROMETHAZINE HCL) 25 Mg Tablet, 25 MG PO PRN, TAB 03/19/20 Hydrocodone Bit/Acetaminophen (NORCO 10-325 TABLET) 1 Each Tablet, 1 TAB PO PRN, TAB 03/19/20 Insuln Asp Prt/Insulin Aspart (NOVOLOG MIX 70-30 FLEXPEN SYRN) 100 Unit/1 Ml Insuln.pen, 26 UNIT SC ACHS, SYR 03/19/20 Nortriptyline Hcl (NORTRIPTYLINE HCL) 10 Mg Cap, 20 MG PO HS 02/15/18 Calcium Acetate (CALCIUM ACETATE) 667 Mg Tablet, 667 MG PO TID, CAP 02/15/18 Ropinirole Hcl (ROPINIROLE HCL) 0.25 Mg Tablet, 0.25 MG PO TID, #90 TAB 06/21/17 Divalproex Sodium (DEPAKOTE ER) 500 Mg Flqicfm62r, 1000 MG PO HS 06/21/17 Sevelamer Carbonate (RENVELA) 0.8 Gm Powd.pack, 2400 MG PO TID 06/21/17 Carvedilol (CARVEDILOL) 3.125 Mg Tablet, 3.125 MG PO BID, #60 TAB 06/21/17 WELLINGTON LARKIN DO Jul 08, 2020 09:50
--- OUTSIDE RECORDS SUMMARY | 2020-07-08 09:55 | XMS REPORT | Clinical Summary ---
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
--- OUTSIDE RECORDS SUMMARY | 2020-07-08 09:58 | XMS REPORT | Continuity of Care Document ---
Author Author [facility] t Organization [facility] Address [address] [place] [id number] Phone Unavailable Care Team Providers Care Stopperer Assembler Name Role Phone JASPREET JEREZ PCP Dai MARINO Attphys Unavailable JASPREET JEREZ Attphys Unavailable BRITTNEY MARTE Attphys Unavailable ADRIENNE VALLES Attphys Unavailable Dai REILLY Attphys Unavailable Macho CABALLERO Attphys Unavailable Bret BUSTILLO Attphys Unavailable Dai MARINO Admphys Unavailable Payers Payer Name Policy Type Policy Number Effective Date Expiration Date Roxann tannergriffin AVA [id number] 2019 00:00:00 [facility] Medicare A & B [id number] 2012 00:00:00 [facility] Problems Condition Name Condition Details Condition Category Status Onset Date Resolution Date Last Treatment Date Treating Clinician Comments Source Delirium Delirium Disease Active 2019-01-11 00:00:00 Bienvenido Garnett Chest pain Chest pain Disease Active 2018-12-12 00:00:00 [place] Mariola Hyperkalemia Hyperkalemia Disease Active 2018-10-12 00:00:00 Faria Mariola Generalized weakness Generalized weakness Disease Active 00:00:00 Faria Mariola Pneumonia due to infectious organism Pneumonia due to infect ious organism Disease Active 2018-05-13 00:00:00 Bienvenido Garnett Hypotension Hypotension Disease Active 2016-12-21 00:00:00 Bienvenido Garnett Chest pain Chest pain Problem Active 2016-04-14 00:00:00 [facility] End-stage renal disease ESRD (end stage renal disease) Problem Active 2015-08-07 00:00:00 [facility] Jejunitis Jejunitis Problem Active 2015-08-07 00:00:00 [facility] Muscle cramps Cramps, muscle, general Problem Active [facility] Cellulitis of right foot Cellulitis of right foot Problem Active [facility] Abdominal cramps Problem Active [facility] Cellulitis of right ankle Problem Active [facility] Open wound of right ankle Problem Active [facility] Rupture of Achilles tendon Problem Active [facility] Diabetic foot ulcer Problem Active [facility] Sepsis Problem Active [facility] Allergies, Adverse Reactions, Alerts Allergy Name Allergy Type Status Severity Reaction(s) Onset Date Inacti ve Date Treating Clinician Comments Source Nifedipine Allergy to substance Active Severe SWELLING 2020-06-20 00:0 0:00 [facility] Vancomycin Allergy to substance Active 2020-06-20 00:00:00 [facility] morphine DA Active SV 2019-10-30 00:00:00 [facility] hydromorphone DA Active 2019-10-30 00:00:00 [facility] nifedipine DA Active 2019-01-16 00:00:00 [facility] Hydromorphone Propensity to adverse reactions to drug Active Other (See Comments) 2019-01-11 00:00:00 Seizure-like activity per Dr Hector Garnett Morphine Propensity to adverse reactions to drug Active Other (See Comments) 2019-01-11 00:00:00 Seizure activity Bienvenido ames nifedipine DA Active SV 2018-05-04 00:00:00 [facility] Nifedipine Propensity to adverse reactions to drug Active Anaphylaxis 2016-12-14 00:00:00 Bienvenido Torres odist Family History Family Member Diagnosis Comments Start Date Stop Date Source 33 FATHER Family history of completed stroke [facility] 32 MOTHER Family history of completed stroke [facility] 09 SISTER Family history of completed stroke [facility] Natural brother Diabetes Bienvenido M ethodist Natural father Heart attack Bienvenido Garnett Natural mother Aneurysm [facility] Me thodist Natural mother Cataracts [facility]ist Natural mother Heart attack Bienvenido Garnett Natural sister Diabetes [facility] Natural sister Heart attack Bienvenido Garnett Social History Social Habit Start Date Stop Date Quantity Comments Source Sex Assigned At Babar cantu Mariola Alcohol intake 2019-01-12 00:00:00 2019-01-12 00:00:00 Current non-drinker of alcohol (finding) Bienvenido Garnett Smoking Status Start Date Stop Date Source [...] mg tablet 2019-01-14 16:27:40 Ye s 2400mg Q.[id number] Take 2,400 mg by mouth 3 (three) times a day with meals. Bienvenido Garnett insulin ASPART (NovoLOG) 100 unit/mL injection 2019-01-14 16:27: 40 Yes 30U Q.[id number] Inject 30 Units under the sk in [...] mg on non dialysis days , , Wed, and Wed Bienvenido rawls midodrine (PROAMATINE) 5 MG tablet 2019-01-14 16:27:40 Y es 10mg Q.[id number] Take 10 mg by mouth 3 (three) times a we ek. Take on Wednesday, Wednesday and Wednesday for Low BP during dialysis Bienvenido Garnett rosuvastatin (CRESTOR) 40 MG tablet 2018-12-27 00:00:00 Yes 1{tbl} Take 1 tablet by mouth daily. Bienvenido alonso esomeprazole (NexIUM) 20 MG capsule 2018-11-23 00:00:00 Yes 20mg QD Take 20 mg by mouth every morning. Bienvenido goddardst ezetimibe (ZETIA) 10 mg tablet 2018-11-14 00:00:00 Yes 10mg QD Take 10 mg by mouth every morning. Bienvenido lindquist nortriptyline (PAMELOR) 10 MG capsule 2018-10-25 00:00:00 Y es 20mg QD Take 20 mg by mouth nightly. Bienvenido ames DULoxetine (CYMBALTA) 30 MG capsule 2018-10-19 00:00:00 Yes 30mg Q.5D Take 30 mg by mouth 2 (two) times a day. Bienvenido Garnett LYRICA 150 mg capsule 2018-02-21 00:00:00 Yes 150mg Q.[id number] Take 150 mg by mouth 3 (three) times a day. Bienvenido Garnett SUMAtriptan (IMITREX) 100 MG tablet 2018-02-09 00:00:00 Yes 100mg QD Take 100 mg by mouth nightly. Bienvenido Linares ethodist divalproex (DEPAKOTE) 500 MG 24 hr tablet 2016-11-21 00:00:00 Yes 1000mg QD Take 1,000 mg by mouth nightly. Bienvenido Garnett Pantoprazole Sodium (Protonix) 40 Mg TABLET. Pantopr azole Sodium (Protonix) 40 Mg TABLET. 2015-08-15 11:23:00 2017-06-21 00:00:00 No 40 Twice A Day [facility] Sucralfate (Carafate) 1 Gm TABLET Sucralfate (Carafate) 1 Gm TABLET 2015-08-15 11:23:00 2017-06-21 00:00:00 No 1 Before Meals And At Bedtime [facility] Calcium Acetate Calcium Acetate Yes 667 Three Ti mes A Day [facility] Carvedilol Carvedilol Yes 3.125 Twice A Day [facility] Clopidogrel Bisulfate (Clopidogrel) 75 Mg TABLET Clopi dogrel Bisulfate (Clopidogrel) 75 Mg TABLET Yes 75 Daily [facility] Dicyclomine Hcl Dicyclomine Hcl Yes 10 As Neede d [facility] Divalproex Sodium (Depakote Er) 500 Mg [id number] Diva lproex Sodium (Depakote Er) 500 Mg [id number] Yes 1000 Bedtime [facility] Esomeprazole Magnesium (Nexium) 20 Mg CAPSULE.DR Hinojosa prazole Magnesium (Nexium) 20 Mg CAPSULE. Yes 20 Daily [facility] Hydrocodone Bit/Acetaminophen (Crete 10-325 Tablet) 1 Each TABLET Hydrocodone Bit/Acetaminophen (Crete 10-325 Tablet) 1 Each TABLET Yes 1 As Needed [facility] Insulin Detemir (Levemir Flextouch) 100 Unit/[address]PEN Insulin Detemir (Levemir Flextouch) 100 Unit/1 Ml INSULN.PEN Yes 16 Daily [facility] Insulin Detemir (Levemir) 100 Unit/1 Ml VIAL Insulin D etemir (Levemir) 100 Unit/1 Ml VIAL Yes 60 Bedtime [facility] Insuln Asp Prt/Insulin Aspart (Novolog M ix 70-30 Flexpen Syrn) 100 Unit/1 Ml INSULN.PEN Insuln Asp Prt/Insulin Aspart (Novolog M ix 70-30 Flexpen Syrn) 100 Unit/1 Ml INSULN.PEN Yes 26 Before Meals And At Bedtime [facility] Midodrine Hcl Midodrine Hcl Yes 5 T,Th,Sat [facility] Midodrine Hcl Midodrine Hcl Yes 10 M,W,F [facility] Nortriptyline Hcl Nortriptyline Hcl Yes 20 Bedt meenakshi [facility] Promethazine Hcl Promethazine Hcl Yes 25 As Nee ded [facility] Ropinirole Hcl Ropinirole Hcl Yes .25 Three Time s A Day [facility] Rosuvastatin Calcium (Crestor) 40 Mg TABLET Rosuvastat in Calcium (Crestor) 40 Mg TABLET Yes 40 Bedtime [facility] Sevelamer Carbonate (Renvela) 0.8 Gm POWD.PACK Sevelam er Carbonate (Renvela) 0.8 Gm POWD.PACK Yes 2400 Three Times A Day [facility] Pregabalin (Lyrica) 150 Mg CAPSULE Pregabalin (Lyrica) 150 Mg CA PSULE 2020-06-22 00:00:00 No 150 Three Times A Day [facility] Esomeprazole Magnesium (Nexium) 20 Mg CAPSULE.DR Hinojosa prazole Magnesium (Nexium) 20 Mg CAPSULE. 2020-05-29 00:00:00 No 20 Daily [facility] Ezetimibe (Zetia) 10 Mg TABLET Ezetimibe (Zetia) 10 Mg TABLET 2020-05-29 00:00:00 No 10 Daily [facility] Loperamide Hcl (Loperamide) 2 Mg TABLET Loperamide Hcl (Desmond ramide) 2 Mg TABLET 2020-05-29 00:00:00 No 2 As Needed as neede d for Diarrhea [facility] Naproxen Sodium (Aleve) 220 Mg CAPSULE Naproxen Sodium (Aleve) 2 20 Mg CAPSULE 2020-05-29 00:00:00 No 220 As Needed [facility] Pregabalin (Lyrica) 75 Mg CAP Pregabalin (Lyrica) 75 Mg CAP 2020-05-29 00:00:00 No 150 Three Times A Day [facility] Rosuvastatin Calcium (Crestor) 10 Mg TAB Rosuvastatin Calcium (Crestor) 10 Mg TAB 2020-05-29 00:00:00 No 40 Bedtime [facility] Atorvastatin Calcium Atorvastatin Calcium 2020-03-19 00:00:00 No 40 Bedtime [facility] Duloxetine Hcl (Cymbalta) 30 Mg CAPSULE. Duloxetine Hcl (Cymbalta) 30 Mg CAPSULE. 2020-03-19 00:00:00 No 30 Twice A Day [facility] Gemfibrozil Gemfibrozil 2020-03-19 00:00:00 No 300 D aily [facility] Hydralazine Hcl Hydralazine Hcl 2020-03-19 00:00:00 No 10 As Needed as needed for High Blood Pressure [facility] Hydromorphone Hcl (Dilaudid) 2 Mg TAB Hydromorphone Hcl (Dilaudi d) 2 Mg TAB 2020-03-19 00:00:00 No 1 As Needed as needed for Pain [facility] Insulin Aspart (Novolog) 100 Units/1 Ml INJ Insulin As part (Novolog) 100 Units/1 Ml INJ 2020-03-19 00:00:00 No 26 Before Meals And At Bedtime [facility] Lactobacillus Acidophilus (Acidophilus) 1 Each TAB.DANILO W Lactobacillus Acidophilus (Acidophilus) 1 Each TAB.CHEW 2020-03-19 00:00:00 No 1 Daily [facility] Ondansetron (Zofran Odt) 4 Mg TAB.RAPDIS Ondansetron ( Zofran Odt) 4 Mg TAB.RAPDIS 2020-03-19 00:00:00 No 4 E very 6 Hours as needed for Nausea [facility] Acetaminophen Acetaminophen 2020-03-15 00:00:00 No 325 As Needed as needed for Pain [facility] Acetaminophen With Codeine (Tylenol With Codeine #3 Ta blet) 1 Each TABLET Acetaminophen With Codeine (Tylenol With Codeine #3 Tablet) 1 Each TABLET 2020-03-15 00:00:00 No 300 As Needed as needed for Pain [facility] Amlodipine Besylate/Benazepril (Amlodipine-Benazepril 2.5-10) 1 Each CAPSULE Amlodipine Besylate/Benazepril (Amlodipine-Benazepril 2.5-10) 1 Each CAPSULE 2018-03-29 00:00:00 No Daily [facility] Clopidogrel Bisulfate (Plavix) 75 Mg TABLET Clopidogre l Bisulfate (Plavix) 75 Mg TABLET 2018-03-29 00:00:00 No 75 Daily [facility] Esomeprazole Magnesium (Nexium) 40 Mg CAPSULE.DR Hinojosa prazole Magnesium (Nexium) 40 Mg CAPSULE. 2018-03-29 00:00:00 No 20 Daily [facility] Insulin Detemir (Levemir) 100 Unit/1 Ml VIAL Insulin D etemir (Levemir) 100 Unit/1 Ml VIAL 2018-03-29 00:00:00 No 16 Daily [facility] Insulin Detemir (Levemir) 100 Unit/1 Ml VIAL Insulin D etemir (Levemir) 100 Unit/1 Ml VIAL 2018-03-29 00:00:00 No 60 Bedtime [facility] Lisinopril Lisinopril 2018-03-29 00:00:00 No 10 Nina ly [facility] Midodrine Hcl Midodrine Hcl 2018-03-29 00:00:00 No 5 M-W-F [facility] Omeprazole Omeprazole 2018-03-29 00:00:00 No 20 Nina ly [facility] Simvastatin Simvastatin 2018-03-29 00:00:00 No 10 T josesito At 9:00PM [facility] Sumatriptan Succinate Sumatriptan Succinate 2018-03-29 00:00:00 No 100 As Needed [facility] Acetaminophen With Codeine (Tylenol With Codeine #3 Ta blet) 1 Each TABLET Acetaminophen With Codeine (Tylenol With Codeine #3 Tablet) 1 Each TABLET 2018-02-15 00:00:00 No 300 Every 4 Hours as nee ded for Pain [facility] Calcium Citrate (Calcitrate) 200 Mg TABLET Calcium Cit rate (Calcitrate) 200 Mg TABLET 2018-02-15 00:00:00 No 2000 Three Times A Day [facility] Cyclobenzaprine Hcl Cyclobenzaprine Hcl 2018-02-15 00:00:00 No 5 Three Times A Day [facility] Duloxetine Hcl (Cymbalta) 20 Mg CAPCR Duloxetine Hcl (Cymbalta) 20 Mg CAPCR 2018-02-15 00:00:00 No 30 Twice A Day [facility] Labetalol Hcl Labetalol Hcl 2018-02-15 00:00:00 No 200 Twice A Day [facility] Tramadol Hcl (Ultram) 50 Mg TABLET Tramadol Hcl (Ultram) 50 Mg T ABLET 2018-02-15 00:00:00 No 50 Every 4 Hours as nee ded for Pain [facility] Famotidine (Pepcid) 20 Mg TABLET Famotidine (Pepcid) 20 Mg TABLE T 2017-12-22 00:00:00 No 40 Daily [facility] Folic Acid/Cyanocob/Pyridoxine (Nephro-Melodie Tablet) 1 Ea TAB Folic Acid/Cyanocob/Pyridoxine (Nephro-Melodie Tablet) 1 Ea TAB 2017-11-26 8 00:00:00 No 1 Daily [facility] Gabapentin Gabapentin 2017-12-22 00:00:00 No 300 Twi ce A Day [facility] Insuln Asp Prt/Insulin Aspart (Novolog M ix 70-30 Flexpen Syrn) 100 Unit/1 Ml INSULN.PEN Insuln Asp Prt/Insulin Aspart (Novolog M ix 70-30 Flexpen Syrn) 100 Unit/1 Ml INSULN.PEN 2017-12-22 00:00:00 No 26 Thr ee Times A Day [facility] Lisinopril Lisinopril 2017-12-22 00:00:00 No 10 Nina ly [facility] Midodrine Hcl Midodrine Hcl 2017-12-22 00:00:00 No 10 Daily [facility] Pregabalin (Lyrica) 75 Mg CAP Pregabalin (Lyrica) 75 Mg CAP 2017-12-22 00:00:00 No 75 Daily [facility] Promethazine Hcl Promethazine Hcl 2017-12-22 00:00:00 No .5 Every 4 Hours as needed for Nausea [facility] Saccharomyces Boulardii (Florastor) 250 Mg CAPSULE Sac charomyces Boulardii (Florastor) 250 Mg CAPSULE 2017-12-22 00:00:00 No 250 Twice A Day [facility] Sodium Bicarbonate Sodium Bicarbonate 2017-12-22 00:00:00 No 325 Three Times A Day [facility] Sumatriptan Succinate Sumatriptan Succinate 2017-12-22 00:00:00 No 25 Daily [facility] Calcium Acetate (Phoslo) 667 Mg CAP Calcium Acetate (Phoslo) 667 Mg CAP 2017-06-21 00:00:00 No 3 Daily At 1700 [facility] Carvedilol Carvedilol 2017-06-21 00:00:00 No 3.125 Tw ice A Day [facility] Cholecalciferol (Vitamin D3) (Vitamin D-3) 2,000 Unit CAPSULE Cholecalciferol (Vitamin D3) (Vitamin D-3) 2,000 Unit CAPSULE 2017-06-21 00:00:00 No 2000 Daily [facility] Clopidogrel Bisulfate (Clopidogrel) 75 Mg TABLET Clopi dogrel Bisulfate (Clopidogrel) 75 Mg TABLET 2017-06-21 00:00:00 No 75 Daily [facility] Cyclobenzaprine Hcl Cyclobenzaprine Hcl 2017-06-21 00:00:00 No 5 Every 8 Hours as needed for Muscle Spasms [facility] Dicyclomine Hcl Dicyclomine Hcl 2017-06-21 00:00:00 No 5 Every 8 Hours as needed for Abdominal Pain [facility] Divalproex Sodium (Divalproex Sodium Er) 500 Mg TAB.ER .24H Divalproex Sodium (Divalproex Sodium Er) 500 Mg TAB.ER.24H 2017-06-21 00:00:00 No 500 Bedtime [facility] Duloxetine Hcl (Cymbalta) 20 Mg CAPCR Duloxetine Hcl (Cymbalta) 20 Mg CAPCR 2017-06-21 00:00:00 No 20 Bedtime [facility] Folic Acid/Cyanocob/Pyridoxine (Nephro-Melodie Tablet) 1 Ea TAB Folic Acid/Cyanocob/Pyridoxine (Nephro-Melodie Tablet) 1 Ea TAB 2017-05-26 8 00:00:00 No 1 Daily [facility] Folic Acid/Cyanocob/Pyridoxine (Nephro-Melodie Tablet) 1 Ea TAB Folic Acid/Cyanocob/Pyridoxine (Nephro-Melodie Tablet) 1 Ea TAB 2017-05-26 8 00:00:00 No 1 Daily [facility] Gabapentin Gabapentin 2017-06-21 00:00:00 No 300 Twi ce A Day [facility] Insulin Detemir (Levemir) 100 Unit/1 Ml VIAL Insulin D etemir (Levemir) 100 Unit/1 Ml VIAL 2017-06-21 00:00:00 No 10 Am [facility] Insulin Human Isophan/Regular (Novolin 70-30 100 Unit/ Ml Vial) 100 Units/Ml ML Insulin Human Isophan/Regular (Novolin 70-30 100 Unit/Ml Vial) 100 Units/Ml ML 2017-06-21 00:00:00 No 26 Three Times Daily With Meals [facility] Lisinopril Lisinopril 2017-06-21 00:00:00 No 20 Nina ly [facility] Midodrine Hcl Midodrine Hcl 2017-06-21 00:00:00 No 10 During Dialysis [facility] Promethazine Hcl Promethazine Hcl 2017-06-21 00:00:00 No 12.5 Every 8 Hours as needed for Nausea [facility] Ropinirole Hcl Ropinirole Hcl 2017-06-21 00:00:00 No 25 Three Times A Day [facility] Sevelamer Hcl (Renvela) 800 Mg TAB Sevelamer Hcl (Renvela) 800 M g TAB 2017-06-21 00:00:00 No 800 Three Times Daily Wi th Meals [facility] Simvastatin Simvastatin 2017-06-21 00:00:00 No 10 T josesito At 9:00PM [facility] Sumatriptan Succinate Sumatriptan Succinate 2017-06-21 00:00:00 No 25 As Needed as needed for Migraine [facility] Tramadol Hcl/Acetaminophen (Ultracet Tablet) 1 Each TA BLET Tramadol Hcl/Acetaminophen (Ultracet Tablet) 1 Each TABLET 2017-06-21 00:00:00 No 50 Every 4 Hours as needed for Pain [facility] Fludrocortisone Acetate Fludrocortisone Acetate 2016-04-14 00:00 :00 No .05 Hd [facility] Insulin Human Lispro (Humalog) 100 Units/Ml ML Insulin Human Lispro (Humalog) 100 Units/Ml ML 2016-04-14 00:00:00 No 60 Bedtime [facility] Insulin Human Lispro (Humalog) 100 Units/Ml ML Insulin Human Lispro (Humalog) 100 Units/Ml ML 2016-04-14 00:00:00 No 60 Daily At 1700 [facility] Lidocaine (Lidoderm) 700 Mg ADH..PATCH Lidocaine (Lidoderm) 700 Mg ADH..PATCH 2016-04-14 00:00:00 No 5 Every 12 Hours as ne eded for Pain [facility] Midodrine Hcl Midodrine Hcl 2016-04-14 00:00:00 No 5 Twice A Day as needed for After Hd [facility] Ondansetron Hcl (Ondansetron Odt) 4 Mg/Udtablet TABDP Ondansetron Hcl (Ondansetron Odt) 4 Mg/Udtablet TABDP 2016-04-14 00:00:00 No 4 Every 6 Hours as needed for Nausea [facility] Pregabalin (Lyrica) 75 Mg CAP Pregabalin (Lyrica) 75 Mg CAP 2016-04-14 00:00:00 No 75 Twice A Day [facility] Scopolamine Hydrobromide (Transderm-Scop) 1 Each PATCH .TD72 Scopolamine Hydrobromide (Transderm-Scop) 1 Each PATCH.TD72 2016-04-14 00:00:00 N o 1.5 Q 3 Days [facility] Amoxicillin/Potassium Clav (Augmentin 500-125 Tablet) 1 Each TABLET Amoxicillin/Potassium Clav (Augmentin 500-125 Tablet) 1 Each TABLET 2015-08-15 00:00:00 No 500 Twice A Day [facility] Clopidogrel Bisulfate (Plavix) 75 Mg TABLET Clopidogre l Bisulfate (Plavix) 75 Mg TABLET 2015-08-15 00:00:00 No 75 Daily [facility] Pantoprazole Sodium (Protonix) 40 Mg TABLET. Pantopr azole Sodium (Protonix) 40 Mg TABLET. 2015-08-15 00:00:00 No 40 Daily [facility] Immunizations Ordered Immunization Name Filled Immunization Name Date Status Comments Source FLUCELVAX QUAD PF 2018-12-16 00:00:00 Completed Bienvenido Garnett Vital Signs Vital Name Observation Time Observation Value Comments Source Body Temperature 2020-07-03 16:20:00 98.7 [degF] [facility] Weight 2020-07-03 07:00:00 165 [lb_av] [facility] BMI (Body Mass Index) 2020-07-03 07:00:00 35.7 kg/m2 [facility] Procedures Procedure Date / Time Performed Performing Clinician Brad myriam Ultrasound guidance for vascular access 2020-07-02 00:00:00 [facility] MRI jnt of lwr extre w/o dye 2020-06-24 00:00:00 [facility] Computed tomography of brain without radiopaque contrast 2020-05 00:00:00 [facility] INCISE FINGER TENDON SHEATH 2020-06-04 00:00:00 [facility] CARPAL TUNNEL SURGERY 2020-06-04 00:00:00 [facility] INCISE FINGER TENDON SHEATH 2020-03-21 00:00:00 [facility] CARPAL TUNNEL SURGERY 2020-03-21 00:00:00 [facility] Computed tomography of brain without radiopaque contrast 2019-08 00:00:[address] [facility] [address] maxillofacial area wo contrast 2019-09-12 00:00:00 [facility] Plan of Care Planned Activity Planned Date Details Comments Source Future Scheduled Test 2020-07-25 00:00:00 INFLUENZA VACCINE [code = INFLUENZA VACCINE] [facility] Scheduled Test 2012 00:00:00 BREAST CANCER SCRE ENING [code = BREAST CANCER SCREENING] [facility] Scheduled Test 2012 00:00:00 COLONOSCOPY SCREEN ING [code = COLONOSCOPY SCREENING] [facility] Scheduled Test 2012 00:00:00 SHINGLES VACCINES (#1) [code = SHINGLES VACCINES (#1)] [facility] Scheduled Test 1983 00:00:00 Screening for farideh gnant neoplasm of cervix (procedure) [code = 000907252[facility] Achilles Tendon Rupture [facility] Instructions Foot Care for Diabetics [facility] Instructions Hemodialysis [facility] Encounters Start Date/Time End Date/Time Encounter Type Admission Type Attendi [facility] Facility Care Department Encounter ID Source 2020-06-20 11:54:00 2020-07-03 17:50:00 Discharged Inpatient 1 SAMUEL MARINO [facility] [id number] [facility] 2020-06-04 09:53:00 2020-06-04 09:53:00 Registered Surgical Day Care [facility] [id number] [facility] 2020-03-21 06:49:00 2020-03-21 06:49:00 Registered Surgical Day Care [facility] [id number] [facility] 2019-09-12 11:48:00 2019-09-12 11:48:00 Registered Clinic 3 JASPREET JEREZ [facility] [id number] [facility] 2018-03-19 09:48:00 2018-03-21 20:35:00 Discharged Inpatient 1 SAMUEL MARINO [facility] [id number] [facility] 2018-02-17 06:51:00 2018-02-17 06:51:00 Registered Surgical Day Care [facility] [id number] [facility] 2018-02-04 12:38:00 2018-02-04 12:38:00 Registered Clinic JASPREET DENISE [facility] [id number] [facility] 2018-02-01 15:10:00 2018-02-01 15:10:00 Registered Clinic ADRIENNE CANTRELL [facility] [id number] [facility] 2018-01-14 22:08:00 2018-01-15 01:58:00 Departed Emergency Room ER LEONIE REILLY [facility] [id number] [facility] 2017-12-31 17:00:00 2017-12-31 17:00:00 Registered Clinic VICKY MA [facility] [id number] [facility] 2017-12-22 17:03:00 2017-12-24 20:20:00 Discharged Inpatient ER SAMUEL MARINO [facility] [id number] [facility] 2017-11-19 16:48:00 2017-11-19 16:48:00 Registered Clinic SISI CABALLERO [facility] [id number] [facility] 2017-10-26 12:00:00 2017-10-26 12:00:00 Registered Clinic SISI CABALLERO [facility] [id number] [facility] 2017-09-21 09:35:00 2017-09-21 09:35:00 Registered Clinic SISI CABALLERO [facility] [id number] [facility] 2017-08-27 11:53:00 2017-08-27 11:53:00 Registered Clinic SISI CABALLERO [facility] [id number] [facility] 2017-06-21 19:09:00 2017-06-22 07:59:00 Departed Emergency Room ER FARAZ BUSTILLO [facility] [id number] [facility] 2017-06-15 09:06:00 2017-06-15 09:06:00 Registered Clinic SISI JASPREET JEREZ [facility] [id number] [facility] 2017-04-06 10:31:00 2017-04-06 10:31:00 Registered Clinic [facility] [id number] [facility] Results Test Description Test Time Test Comments Results Result Comments Source Capillary blood glucose measurement by glucometer (mas s/volume) 2020-07-03 11:12:00 Test Item Bedside Glucose (test code = 21327-4) 154 70-120 Meter ID: [id number] [facility] HospitalBlood leukocytes automated count (number/volume)2020-07-03 05:00:00* Test Item Value Reference Range Interpretation Comments White Blood Count (test code = 6690-2) 6.60 4.8-10.8 [facility] erythrocytes automated count (number/volume)2020-07-03 05:00:00* Test Item Value Reference Range Interpretation Comments Red Blood Count (test code = 789-8) 3.44 3.6-5.1 [facility] hemoglobin measurement (moles/volume)2020-07-03 05:00:00* Test Item Value Reference Range Interpretation Comments Hemoglobin (test code = 93884-6) 10.6 12.0-16.0 [facility] HospitalAutomated blood hematocrit (volume fraction)2020-07-03 05:00:00* Test Item Value Reference Range Interpretation Comments Hematocrit (test code = 4544-3) 35.5 34.2-44.1 [facility] HospitalAutomated erythrocyte mean corpuscular cngskj1350-17-70 05:00:00* Test Item Value Reference Range Interpretation Comments Mean Corpuscular Volume (test code = 787-2) 103.2 81-99 [facility] HospitalAutomated erythrocyte mean corpuscular hemoglobin (mass per erythrocyte)2020-07-03 05:00:00* Test Item Value Reference Range Interpretation Comments Mean Corpuscular Hemoglobin (test code = 785-6) 30.8 28-32 [facility] HospitalAutom[facility] erythrocyte mean corpuscular hemoglobin concentration measurement (mass/volume)2020-07-03 05:00:00* Test Item Value Reference Range Interpretation Comments Mean Corpuscular Hemoglobin Concent (test code = 786-4) 29.9 31-35 [facility] HospitalRDW BzvDc-Hue5713-31-09 05:00:00* Test Item Value Reference Range Interpretation Comments Red Cell Distribution Width (test code = 38295-7) 15.9 11.7 -14.4 [facility] HospitalAutomated blood platelet count (count/volume)2020-07-03 05:00:00* Test Item Value Reference Range Interpretation Comments Platelet Count (test code = 777-3) 134 140-360 [facility] HospitalAutunc health [facility] morgantoned blood segmented neutrophil count as percentage of total hoammmndqg7582-52-27 05:00:00* Test Item Value Reference Range Interpretation Comments Neutrophils (%) (Auto) (test code = 42215-7) 64.1 38.7-80.0 [facility] HospitalAutomated blood lymphocyte count as percentage ot total mfwprikogv5791-21-65 05:00:00* Test Item Value Reference Range Interpretation Comments Lymphocytes (%) (Auto) (test code = 736-9) 15.9 18.0-39.1 [facility] HospitalAutomated blood monocyte count as percentage of total tozrwarygz6784-07-92 05:00:00* Test Item Value Reference Range Interpretation Comments Monocytes (%) (Auto) (test code = 5905-5) 16.2 4.4-11.3 [facility] HospitalAutomated blood eosinophil count as percentage of total xwnrvdqbcp5940-02-49 05:00:00* Test Item Value Reference Range Interpretation Comments Eosinophils (%) (Auto) (test code = 713-8) 1.2 0.0-6.0 [facility] HospitalAutomated blood basophil count as percentage of total zzmpjspnmd6108-21-77 05:00:00* Test Item Value Reference Range Interpretation Comments Basophils (%) (Auto) (test code = 706-2) 0.3 0.0-1.0 [facility] HospitalFluoroscopic procedure less than one hour wbycekxl9069-05-63 05:00:00* Test Item Value Reference Range Interpretation Comments IM GRANULOCYTES % (test code = IM GRANULOCYTES %) 2.3 0.0- 1.0 [facility] HospitalAutomated blood neutrophil count 2020-07-03 05:00:00* Test Item Value Reference Range Interpretation Comments Neutrophils # (Auto) (test code = 751-8) 4.2 2.1-6.9 [facility] HospitalBlood lymphocytes count (number/volume) 2020-07-03 05:00:00* Test Item Value Reference Range Interpretation Comments Lymphocytes # (Auto) (test code = 69562-9) 1.1 1.0-3.2 [facility] HospitalBlcanby medical center monocytes automated count (number/volume)2020-07-03 05:00:00* Test Item Value Reference Range Interpretation Comments Monocytes # (Auto) (test code = 742-7) 1.1 0.2-0.8 [facility] HospitalAutomated blood eosinophil count 2020-07-03 05:00:00* Test Item Value Reference Range Interpretation Comments Eosinophils # (Auto) (test code = 711-2) 0.1 0.0-0.4 [facility] HospitalAutomated blood basophil count (count/volume)2020-07-03 05:00:00* Test Item Value Reference Range Interpretation Comments Basophils # (Auto) (test code = 704-7) 0.0 0.0-0.1 [facility] HospitalFluoroscopic procedure less than one hour fhiqajng6840-00-84 05:00:00* Test Item Value Reference Range Interpretation Comments Absolute Immature Granulocyte (auto (khoi t code = Absolute Immature Granulocyte (auto) 0.15 0-0.1 [facility] Hospital[facility] or plasma sodium measurement (moles/volume)2020-07-03 05:00:00* Test Item Value Reference Range Interpretation Comments Sodium Level (test code = 2951-2) 139 136-145 [facility] Hospitalerum or plasma potassium measurement (moles/volume)2020-07-03 05:00:00* Test Item Value Reference Range Interpretation Comments Potassium Level (test code = 2823-3) 5.5 3.5-5.1 [facility] Hospital[facility] or plasma chloride measurement (moles/volume)2020-07-03 05:00:00* Test Item Value Reference Range Interpretation Comments Chloride Level (test code = 2075-0) 98 98-107 [facility] Hospitalerum or plasma carbon dioxide, total measurement (moles/volume)2020-07-03 05:00:00* Test Item Value Reference Range Interpretation Comments Carbon Dioxide Level (test code = 2028-9) 25 22-29 [facility] Hospitalerum or plasma anion ohb1791-39-54 05:00:00* Test Item Value Reference Range Interpretation Comments Anion Gap (test code = 37240-9) 21.5 8-16 [facility] Hospitaler[facility] or plasma urea nitrogen measurement (mass/volume)2020-07-03 05:00:00* Test Item Value Reference Range Interpretation Comments Blood Urea Nitrogen (test code = 3094-0) 37 7-26 [facility] Hospitaler[facility] or plasma creatinine measurement (mass/volume)2020-07-03 05:00:00* Test Item Value Reference Range Interpretation Comments Creatinine (test code = 2160-0) 6.01 0.57-1.11 [facility] Hospitaler[facility] or plasma urea nitrogen/creatinine mass ghkjx6856-15-03 05:00:00* Test Item Value Reference Range Interpretation Comments BUN/Creatinine Ratio (test code = 3097-3) 6 6-25 [facility] HospitalEstimated glomerular filtration rate (GFR) gtsrygpbjrkff3450-20-29 05:00:00* Test Item Value Reference Range Interpretation Comments Estimat Glomerular Filtration Rate (test code = 598566836) 7 >60 Ranges were taken from the National Kidney Disease Education Program and the [facility] literature.Reference ranges:60 or greater: Zhzczz14-45 ( for 3 consecutive months): Chronic kidney disease 15 or less: Kidney failureNacogdoches Memorial HospitalGlucose nmrzcepxhxu3890-05-33 05:00:00* Test Item Value Reference Range Interpretation Comments Glucose Level (test code = IAK8057) 80 74-118 [facility] or plasma calcium measurement (mass/volume)2020-07-03 05:00:00* Test Item Value Reference Range Interpretation Comments Calcium Level (test code = 32823-1) 8.7 8.4-10.2 [facility] HospitalFL[facility] [id number] 16:53:00 [facility] [address] [address] Patient Name: TAI GRANT MR #: [id number] : 1960 Age/Sex: 60/F Req #: [id number] Adm Physician: SAMUEL MARINO MD Ordered by: DENISSE MORTENSEN SPA MANAGER/ESTHETICIAN Report #: [id number] Location: MED/SURG2 Room/Bed: 202-1 Procedure: LUCAS/DANUTA [place] C ENT JACOB PLMT OR REM Exam Date: 07/02/20 Exam Time: 1 350 REPORT STATUS: Signed PROCED URE: Tunneled central venous catheter placement Procedural Personnel Att ending physician(s): Van Mishra MD Fellow physician(s): None Resident physi pippa(s): None Advanced practice provider(s): None Pre-procedure diagnosis : Osteomyelitis Post-procedure diagnosis: Same Indication: Administration of continuous churn buttermaker IV antibiotics Additional clinical history: None Complications: No immediate complications. IMPRESSION: Insertion of right-sided dual- lumen tunneled central venous catheter, with tip in the expected location of the cavoatrial junction. Plan: The catheter may be used immediately. PROCEDURE SUMMARY: - Venous access with ultrasound guidance - Tunneled central venous catheter insertion with fluoroscopic guidance - Additional procedure(s): None PROCEDURE DETAILS: Pre-procedure Consent: Informed consent for the procedure including risks, benefits and alternatives was obtained and time-out was performed prior to the procedure. Preparation (MIPS): The site was prepa red and draped using all elements of maximal sterile barrier technique includi ng sterile gloves, sterile gown, cap, mask, large sterile sheet, sterile ultra sound probe cover, hand hygiene and cutaneous antisepsis with 2% chlorhexidine . Medical reason for site preparation exception (MIPS): Not applicable A nesthesia/sedation Level of anesthesia/sedation: Moderate sedation (conscious sedation) 1mg Versed, 50mcg fentanyl Anesthesia/sedation administered by: In dependent trained observer under attending supervision with continuous monitor ing of the patient?s level of consciousness and physiologic status Total int ra-service sedation time (minutes): 30 Access Local anesthesia was admini stered. The vessel was sonographically evaluated and determined to be patent. Real time ultrasound was used to visualize needle entry into the vessel and a permanent image was stored. Vein accessed: Internal jugular vein science technician nique: Micropuncture set with 21 gauge needle Catheter placement An incis ion was made near the venous access site and the catheter was tunneled subcuta neously to the venous access site and trimmed to appropriate length. The marilou ter was advanced via a peel-away sheath into the vein under fluoroscopic jessica nce. Catheter tip location was fluoroscopically verified and a permanent image was stored. Catheter placed: [employer] Power[employer] Catheter size ([place]): 6 Cat heter flush: Normal saline Closure A sterile dressing was applied. Acce ss site closure technique: Tissue adhesive Catheter securement technique: Non- absorbable suture Contrast Contrast agent: None Contrast volume (mL): N A Radiation Dose Fluoroscopy time (minutes): 0.5 Reference air kerma (mGy): 2.9 Additional Details Additional description of procedure: None Equipment details: None Specimens removed: None Estimated blood loss (mL): Less than 10 Standardized report: [email or web address] Attestation Signer name: Van Mishra MD I attest that I was present for the entire procedu re. I reviewed the stored images and agree with the report as written. Signed by: Van Mishra MD on 07/02/2020 4:55 PM Dictated By: VAN MISHRA MD 54 Transcribed By: Cory NEWMAN on 07/02/201654 COPY TO: DENISSE MORTENSEN NP TUNNELLED CVC INSERT W/O [id number] 16:53:[address] [place] [address] Patient Name: TAI GRANT MR #: [id number] : 1960 Age/Sex: 60/F Req #: [id number] Adm Physician: SAMUEL MARINO MD Ordered by: DENISSE MORTENSEN NP Report #: [id number] Location: MED/SURG2 Room/Bed: [facility] Procedure: IR/TUNNELLED C VC INSERT W/O PORT Exam Date: Exam Time: REPORT STATUS: Signed PROCEDURE: Tunneled central venous catheter placement Procedural Personnel Attending physic igor(s): Van Mishra MD Fellow physician(s): None Resident physician(s): None Advanced practice provider(s): None Pre-procedure diagnosis: Osteomyelit is Post-procedure diagnosis: Same Indication: Administration of continuous churn buttermaker IV antibiotics Additional clinical history: None Complications: No immediate complications. IMPRESSION: Insertion of right-sided dual-lumen tunne led central venous catheter, with tip in the expected location of the cavoatri al junction. Plan: The catheter may be used immediately. PROCEDURE SUMMARY: - Venous access with ultrasound guidance - Tunneled central venous catheter in sertion with fluoroscopic guidance - Additional procedure(s): None PROCED URE DETAILS: Pre-procedure Consent: Informed consent for the procedure in cluding risks, benefits and alternatives was obtained and time-out was perform ed prior to the procedure. Preparation (MIPS): The site was prepared and drape d using all elements of maximal sterile barrier technique including sterile gl oves, sterile gown, cap, mask, large sterile sheet, sterile ultrasound probe c over, hand hygiene and cutaneous antisepsis with 2% chlorhexidine. Medical reason for site preparation exception (MIPS): Not applicable Anesthesia/sed ation Level of anesthesia/sedation: Moderate sedation (conscious sedation) 1mg Versed, 50mcg fentanyl Anesthesia/sedation administered by: Independent tra ined observer under attending supervision with continuous monitoring of the pa tient?s level of consciousness and physiologic status Total intra-service se dation time (minutes): 30 Access Local anesthesia was administered. The v essel was sonographically evaluated and determined to be patent. Real time ult rasound was used to visualize needle entry into the vessel and a permanent larry ge was stored. Vein accessed: Internal jugular vein Access technique: Microp uncture set with 21 gauge needle Catheter placement An incision was made near the venous access site and the catheter was tunneled subcutaneously to th e venous access site and trimmed to appropriate length. The catheter was advan kristina via a peel-away sheath into the vein under fluoroscopic guidance. Catheter tip location was fluoroscopically verified and a permanent image was stored. Catheter placed: [employer] Catheter size ([place]): 6 Catheter flush: Normal saline Closure A sterile dressing was applied. Access site closu re technique: Tissue adhesive Catheter securement technique: Non-absorbable canales ture Contrast Contrast agent: None Contrast volume (mL): NA Radiat ion Dose Fluoroscopy time (minutes): 0.5 Reference air kerma (mGy): 2.9 Additional Details Additional description of procedure: None Equipment d etails: None Specimens removed: None Estimated blood loss (mL): Less than 10 Standardized report: [email or web address]_v3 Attestation Signer name: Van Mishra MD I attest that I was present for the entire procedure. I reviewe d the stored images and agree with the report as written. Signed by : Van Mishra MD on 07/02/2020 4:55 PM Dictated By: VAN MISHRA MD Electron ically Signed By: VAN MISHRA MD on 07/02/201654 Transcribed By: ROBI on 06/13 COPY TO: DENISSE MORTENSEN NP US GUIDANCE FOR VASCULAR [id number] 16:53:[address] [place] [address] Patient Name: TAI GRANT MR #: [id number] : 1960 Age/Sex: 60/F Req #: [id number] Adm Physician: SAMUEL MARINO MD Ordered by: SAMUEL MARINO MD Report #: [id number] Location: [facility] Room/Bed: [facility] Procedure: US/US GUIDANCE FOR VASCULAR ACCES Exam Date: 07/02/20 Exam Time: REPORT STATUS: Signed PROCEDU RE: Tunneled central venous catheter placement Procedural Personnel Atte nding physician(s): Van Mishra MD Fellow physician(s): None Resident physic igor(s): None Advanced practice provider(s): None Pre-procedure diagnosis: Osteomyelitis Post-procedure diagnosis: Same Indication: Administration of longterm IV antibiotics Additional clinical history: None Complications: No immediate complications. IMPRESSION: Insertion of right-sided dual- lumen tunneled central venous catheter, with tip in the expected location of the cavoatrial junction. Plan: The catheter may be used immediately. PROCEDURE SUMMARY: - Venous access with ultrasound guidance - Tunneled central venous catheter insertion with fluoroscopic guidance - Additional procedure(s): None PROCEDURE DETAILS: Pre-procedure Consent: Informed consent for the procedure including risks, benefits and alternatives was obtained and time-out was performed prior to the procedure. Preparation (MIPS): The site was prepar ed and draped using all elements of maximal sterile barrier technique includin g sterile gloves, sterile gown, cap, mask, large sterile sheet, sterile ultras ound probe cover, hand hygiene and cutaneous antisepsis with 2% chlorhexidine. Medical reason for site preparation exception (MIPS): Not applicable An esthesia/sedation Level of anesthesia/sedation: Moderate sedation (conscious s edation) 1mg Versed, 50mcg fentanyl Anesthesia/sedation administered by: Ind ependent trained observer under attending supervision with continuous monitori ng of the patient?s level of consciousness and physiologic status Total intr a-service sedation time (minutes): 30 Access Local anesthesia was adminis tered. The vessel was sonographically evaluated and determined to be patent. R eal time ultrasound was used to visualize needle entry into the vessel and a p ermanent image was stored. Vein accessed: Internal jugular vein Access techn ique: Micropuncture set with 21 gauge needle Catheter placement An incisi on was made near the venous access site and the catheter was tunneled subcutan eously to the venous access site and trimmed to appropriate length. The cathet er was advanced via a peel-away sheath into the vein under fluoroscopic guidan ce. Catheter tip location was fluoroscopically verified and a permanent image was stored. Catheter placed: [employer] Catheter size ([place]): 6 Cath eter flush: Normal saline Closure A sterile dressing was applied. Acces s site closure technique: Tissue adhesive Catheter securement technique: Non-a bsorbable suture Contrast Contrast agent: None Contrast volume (mL): NA Radiation Dose Fluoroscopy time (minutes): 0.5 Reference air kerma ( mGy): 2.9 Additional Details Additional description of procedure: None Equipment details: None Specimens removed: None Estimated blood loss (mL): Less than 10 Standardized report: [email or web address]_v3 Attestation S igner name: Van Mishra MD I attest that I was present for the entire procedur e. I reviewed the stored images and agree with the report as written. Signed by: Van Mishra MD on 07/02/2020 4:55 PM Dictated By: VAN MISHRA MD 54 Transcribed By: GREG GARCIA on 07/02/201654 COPY TO: SAMUEL MARINO MD IR CONSULT 2020-07-02 16:53:00 [place] [address] Patient Name: TAI GRANT MR #: [id number] : 1960 Age/Sex: 60/F Req #: [id number] Adm Physician: SAMUEL MARINO MD Ordered by: DENISSE MORTENSEN NP Report #: [id number] Location: [facility] Room/Bed: [facility] Procedure: DX/IR CONSULT Exam Date: Exam Time: REPORT STATUS: Signed PROCEDURE: Tunneled central venous cat heter placement Procedural Personnel Attending physician(s): Van Mishra MD Fellow physician(s): None Resident physician(s): None Advanced practice provider(s): None Pre-procedure diagnosis: Osteomyelitis Post-procedure diagnosis: Same Indication: Administration of continuous churn buttermaker IV antibiotics Gera tional clinical history: None Complications: No immediate complications. IMPRESSION: Insertion of right-sided dual-lumen tunneled central venous catheter, with tip in the expected location of the cavoatrial junction. P dmitriy: The catheter may be used immediately. PROCEDURE SUMMARY: - Venous access wit h ultrasound guidance - Tunneled central venous catheter insertion with fluoro scopic guidance - Additional procedure(s): None PROCEDURE DETAILS: P re-procedure Consent: Informed consent for the procedure including risks, bene fits and alternatives was obtained and time-out was performed prior to the pro cedure. Preparation (MIPS): The site was prepared and draped using all element s of maximal sterile barrier technique including sterile gloves, sterile gown, cap, mask, large sterile sheet, sterile ultrasound probe cover, hand hygiene and cutaneous antisepsis with 2% chlorhexidine. Medical reason for site pre paration exception (MIPS): Not applicable Anesthesia/sedation Level of an esthesia/sedation: Moderate sedation (conscious sedation) 1mg Versed, 50mcg fe ntanyl Anesthesia/sedation administered by: Independent trained observer under attending supervision with continuous monitoring of the patient?s level of consciousness and physiologic status Total intra-service sedation time (minute s): 30 Access Local anesthesia was administered. The vessel was sonograph ically evaluated and determined to be patent. Real time ultrasound was used to visualize needle entry into the vessel and a permanent image was stored. Ve in accessed: Internal jugular vein Access technique: Micropuncture set with 21 gauge needle Catheter placement An incision was made near the venous acc ess site and the catheter was tunneled subcutaneously to the venous access sit e and trimmed to appropriate length. The catheter was advanced via a peel-away sheath into the vein under fluoroscopic guidance. Catheter tip location was f luoroscopically verified and a permanent image was stored. Catheter placed: [employer] Catheter size ([place]): 6 Catheter flush: Normal saline Closure A sterile dressing was applied. Access site closure technique: Tissu e adhesive Catheter securement technique: Non-absorbable suture Contrast Contrast agent: None Contrast volume (mL): NA Radiation Dose Fluorosc opy time (minutes): 0.5 Reference air kerma (mGy): 2.9 Additional Deta ils Additional description of procedure: None Equipment details: None Spec imens removed: None Estimated blood loss (mL): Less than 10 Standardized rep ort: SIR_TunneledCatheter_v3 Attestation Signer name: Van Mishra MD I attest that I was present for the entire procedure. I reviewed the stored imag es and agree with the report as written. Signed by: Van Mishra MD on 07/02/2020 4:55 PM Dictated By: VAN MISHRA MD 54 Transcribed By: ROBI on 07/02/201654 CO PY TO: DENISSE MORTENSEN NP Prothrombin time (PT) in platelet poor plasma by coagulation [id number] 08:36:00* Test Item Value Reference Range Interpretation Comments Prothrombin Time (test code = 5902-2) 14.6 11.9-14.5 [facility] Platelet poor plasma by Coagulation [id number] 08:36:00* Test Item Value Reference Range Interpretation Comments Prothromb Time International Ratio (test code = 6301-6) 1.08 Oral Anticoagulant Therapy INR Values:1. Low Intensity Therapy 1.5 - 2.02 . Moderate Intensity Therapy 2.0 - 3.03. High Intensity Therapy(1) 2.5 - 3. 54. High Intensity Therapy(2) 3.0 - 4.05. Panic Value INR > 5.0 [facility] plasma total bilirubin measurement (mass/volume)2020-06-29 16:00:00* Test Item Value Reference Range Interpretation Comments Total Bilirubin (test code = 1975-2) 0.4 0.2-1.2 [facility] conjugated bilirubin measurement (mass/volume)2020-06-29 16:00:00* Test Item Value Reference Range Interpretation Comments Direct Bilirubin (test code = 64623-1) 0.2 0.0-0.5 [facility]Fluor[facility] procedure less than one hour [id number] 16:00:00* Test Item Value Reference Range Interpretation Comments Aspartate Amino Transf (AST/SGOT) (test code = Aspartate Amino Transf (AST/SGOT)) 22 5-34 [facility] alanine aminotransferase measurement (enzymatic activity/volume)2020-06-29 16:00:00* Test Item Value Reference Range Interpretation Comments Alanine Aminotransferase (ALT/SGPT) (test code = 1742-6) 15 0-55 [facility] protein measurement (mass/volume)2020-06-29 16:00:00* Test Item Value Reference Range Interpretation Comments Total Protein (test code = 2885-2) 7.4 6.5-8.1 [facility] albumin measurement (mass/volume)2020-06-29 16:00:00* Test Item Value Reference Range Interpretation Comments Albumin (test code = 1751-7) 3.9 3.5-5.0 [facility] alkaline phosphatase measurement (enzymatic activity/volume)2020-06-29 16:00:00* Test Item Value Reference Range Interpretation Comments Alkaline Phosphatase (test code = 6768-6) 114 40-150 [facility] amylase measurement (enzymatic activity/volume)2020-06-29 16:00:00* Test Item Value Reference Range Interpretation Comments Amylase Level (test code = 1798-8) 82 25-125 [facility] lipase measurement (enzymatic activity/volume)2020-06-29 16:00:00* Test Item Value Reference Range Interpretation Comments Lipase (test code = 3040-3) 30 8-78 [facility] HospitalB[facility], 3 [id number] 15:29:00 [facility] [address] [address] Patient Name: TAI GRANT MR #: [id number] : 1960 Age/Sex: 60/F Req #: [id number] Adm Physician: SAMUEL MARINO MD Ordered by: DENISSE MORTENSEN SPA MANAGER/ESTHETICIAN Report #: [id number] Location: [facility] Room/Bed: [facility] Procedure: [id number] NM/BONE SCAN, 3 PHASE Exam Date: Exam Time: REPORT STATUS: Signed Labeled WBC Study Reason for exam: Post surgical repair of Achilles tendon rupture; draining wound righ t heel. Comparison: 3-phase bone scan 06/27/2020; MRI ankle 06/24/2020 R eport: The patient's own white blood cells were labeled with In-111 oxine 565 millicuries by a commercial radiopharmacy. Images of the feet and ankles were obtained at 5 and 24 hours post administration of the labeled white blood kandy ls. Focal increased tracer activity at the posterior aspect of the right ca lcaneus at 5 hours and persisting at 24 hours matches the focal increased trac er activity seen on the recent 3-phase bone scan. No other foci of increased tracer activity are seen in the feet or ankles. IMPRESSION: Scan fi ndings congruent with findings on recent 3-phase bone scan and compatible with osteomyelitis in the posterior aspect of the right calcaneus. Signed by: Wilfred Greenberg M.D. on 06/29/2020 3:36 PM Dictated By: CORRINE GREENBERG MD Adriana ctronically Signed By: CORRINE GREENBERG MD on 06/29/20 153 Transcribed By: ROBI on 06/29/201535 COPY TO: DENISSE MORTENSEN NP BONE SCAN, 3 PHASE 2020-06-27 22:29:[address] [address] Patient Name: TAI GRANT MR #: [id number] : 1960 Age/Sex: 60/F Req #: [id number] Adm Physician: SAMUEL MARINO MD Ordered by: DENISSE MORTENSEN SPA MANAGER/ESTHETICIAN Report #: [id number] Location: MED/SURG2 Room/Bed: [facility] Procedure: [id number] NM/BONE SCAN, 3 PHASE Exam Date: 06/27/20 Exam Time: 1730 REPORT STATUS: Signed Bone Scan, three-p hase - feet and ankles Reason for exam: Post surgical repair of Achilles te ndon rupture; draining wound right heel. Radiopharmaceutical: Tc-99m MDP 22.7 mCi IV right wrist Comparison: MRI right ankle 06/24/2020 Followi ng intravenous administration of the radiopharmaceutical, dynamic flow and imm ediate blood pool images of the feet and ankles in the lateral/medial projecti on followed by selected spot images were obtained. Flow and blood pool larry ges show diffuse, relatively symmetric distribution of tracer activity to the feet and ankles with focal increased tracer in the right heel. The delaye d images show markedly increased tracer activity throughout the right calcaneu s. Impression: Scan findings are very worrisome for osteomyelitis in t he right calcaneus. Given the compromised specificity of 3-phase bone scan fo r osteomyelitis in complicated osteomyelitis, proceeding with a labeled white blood cell study, as already ordered, is the appropriate study to add specific ity to the evaluation. Signed by: Dr. Corrine Greenberg M.D. on 06/27/2020 10:3 8 PM Dictated By: CORRINE GREENBERG MD 37 Transcribed By: ROBI on 06/27/202237 COPY TO: DENISSE MELTON NP Bacterial urine [id number] 22:20:00* Test Item Value Reference Range Interpretation Comments Urine Culture (test code = 630-4) ESCHERICHIA COLI-ESBL [facility] HospitalBlood macrocytes detection by light pdehxtyduh3759-37-59 05:00:00* Test Item Value Reference Range Interpretation Comments Macrocytosis (test code = 738-5) SLIGHT [facility] [id number] 08:48:00 [facility] [address] [address] Patient Name: TAI GRANT MR #: [id number] : 1960 Age/Sex: 60/F Req #: [id number] Adm Physician: SAMUEL MARINO MD Ordered by: ANJEL LEE, KATHRIN LEE Report #: [id number] Location: MED/SURG2 Room/Bed: 202 Procedure: 0831-00 05 MRI/MRI ANKLE RIGHT WO Exam Date: Exam Time: REPORT STATUS: Signed TECHNIQUE: Magnetic resonance imaging of the RIGHT ANKLE was performed WITHOUT injected contrast. COMPARISON: None available. HISTORY: Pain, prior surgery FINDINGS: LIGAMENTS: Medial Complex: Intact Lateral Complex: Intact TENDONS: Medial: Intact Lateral: Intact Ant erior: Intact Achilles: Postsurgical repair of the Achilles tendon with intact fibers at the lateral aspect. Partial tearing involving the medial asp ect. Underlying tendinopathy and postsurgical change. BONES: Bone marro w edema and T1 replacement in the calcaneus. No acute fracture or osteonecro sis. JOINTS: Cartilage: No focal defect is identified involving th e tibiotalar joint. Other: Fluid within the joints is within physiologic limits. SOFT TISSUES: Ulceration of the posterior ankle with sinus tra ct and fluid collection along the medial aspect of the Achilles tendon extendi ng to the calcaneus. The collection extends approximately 5 cm in craniocaudal dimension with maximum transverse dimension of 1.6 cm. IMPRESSION: Postsurgical change to the Achilles tendon with partial tearing of the medial fibers. Soft tissue ulceration posterior ankle with 5 cm fluid collecti on/abscess extending to the calcaneus with osteomyelitis. No septic arthr itis. Signed by: Dr. Lexi Arteaga M.D. on 06/25/2020 8:52 AM Dictat ed By: LEXI ARTEAGA MD 1 COPY TO: KATHRIN LESTER Phosphorus tywwpuivvug0884-33-67 06:44:00* Test Item Value Reference Range Interpretation Comments Phosphorus Level (test code = VNO4160) 5.0 2.3-4.7 [facility] iron measurement (mass/volume)2020-06-24 06:44:00* Test Item Value Reference Range Interpretation Comments Iron Level (test code = 2498-4) 54 50-170 [facility] plasma iron binding capacity measurement (mass/volume)2020-06-24 06:44:00* Test Item Value Reference Range Interpretation Comments Total Iron Binding Capacity (test code = 2500-7) 234 261-4 78 [facility] plasma iron saturation measurement (mass fraction)2020-06-24 06:44:00* Test Item Value Reference Range Interpretation Comments Percent Iron Saturation (test code = 2502-3) 23 15-50 [facility] or plasma transferrin measurement (mass/volume)2020-06-24 06:44:00* Test Item Value Reference Range Interpretation Comments Transferrin (test code = 3034-6) 167 180-382 [facility] plasma ferritin measurement (mass/volume)2020-06-24 06:44:00* Test Item Value Reference Range Interpretation Comments Ferritin (test code = 2276-4) 1981.20 4.63-204.00 [facility] plasma insulin measurement (units/volume)2020-06-24 06:44:00* Test Item Value Reference Range Interpretation Comments Insulin Level (test code = 29040-3) 7.4 2.6-24.9 Performed at: [facility] [id number] Director: Kenny Garcia MD, Phone: [phone] Hermann [facility] Hospitalerum or plasma intact pararthyroid hormone measurement (mass/volume) 2020-06-24 06:44:00* Test Item Value Reference Range Interpretation Comments Parathyroid Hormone (test code = 2731-8) 70 15-65 [facility] plasma calcium measurement (mass/volume)2020-06-24 06:44:00* Test Item Value Reference Range Interpretation Comments Calcium (Send out) (test code = 08738-4) 7.9 8.7-10.2 [facility] HospitalFluoroscopic procedure less than one hour lvoziyyb6820-05-08 06:44:00* Test Item Value Reference Range Interpretation Comments Parathyroid Hormone Interpretation (test code = Parathyroid Hormone Interpretation) Comment . Interpretation Intact PTH Calcium (pg/mL) (mg/dL)Normal 15 - 65 8.6 - 10.2Pr imary Hyperparathyroidism >65 >10.2Secondary Hyperparathyroidism >65 <10.2Non-Parathyroid Hypercalcemia <65 >10.2Hypoparathyroidism <15 < 8.6Non- Parathyroid Hypocalcemia 15 - 65 < 8.6Performed at: [address] [id number] Director: Kenny Garcia MD, Phone: [phone] at: [address] [id number] Director: Navi Marrufo MD, Phone: [phone] Hermann [facility] Hospitalerum hepatitis B virus surface antibody assay by radioimmunoassay (units/volume)2020-06-22 05:00:00* Test Item Value Reference Range Interpretation Comments Hepatitis B Surface Antibody, Quant (test code = 5194-6) 90.5 Immunity>9.9 Status of Immunity Anti-HBs Level Inconsistent with Immunity 0.0 - 9.9Consistent with Immunity >9.9[facility]um or plasma hepatitis B virus core antibody detection by tussmuewvsh2588-92-00 05:00:00* Test Item Value Reference Range Interpretation Comments Hepatitis B Core Total Antibody (test code = 17581-5) Negative Negative Performed at: [address] [id number] Director: Kenny Garcia MD, Phone: [phone] Hermann [facility] Hospitalerum or plasma hepatitis B virus surface antigen detection by immunoassay 2020-06-22 05:00:00* Test Item Value Reference Range Interpretation Comments Hepatitis B Surface Antigen (test code = 5196-1) Negative Negat sue [facility] BRAIN [id number] 21:23:00 [address] [address] Patient Name: TAI GRANT MR #: [id number] : 1960 Age/Sex: 60/F Req #: [id number] Adm Physician: SAMUEL MARINO MD Ordered by: DENISSE MORTENSEN SPA MANAGER/ESTHETICIAN Report #: [id number] Location: MED/SURG2 Room/Bed: [facility] Procedure: [id number] CT/CT BRAIN WO Exam Date: 06/21/20 Exam Time: 2049 REPORT STATUS: Signed EXAMINATION: Head CT with out contrast. HISTORY:Altered mental status. COMPARISON:CT brain from 09/12/2019. TECHNIQUE: Multidetector axial images were obtained from t he foramen magnum to the vertex without contrast. The images were reconstructe d using brain and bone algorithms. Thin section brain images were reformatted into coronal and sagittal planes. Dose modulation, iterative reconstruction, and/or weight based adjustment of the mA/kV was utilized to reduce the radia tion dose to as low as reasonably achievable. Intravenous contrast: None IMAGE QUALITY: Suboptimal evaluation particularly at the level of skull b ase and posterior fossa structures due to streak artifacts. FINDINGS: Skull/scalp: No lytic or blastic. lesions. No surgical changes. Parenc hyma: No abnormal density. No acute hemorrhage, mass or acute major vascular t erritorial infarct. Arteries: No density suggestive of thrombosis. Mild a therosclerosis in bilateral carotid siphon. Dural sinuses: No abnormal density suggestive of thrombosis. Ventricles: No hydrocephalus or displac ement. Extra-axial spaces: No abnormal density. Brain volume: Norm al for age. Craniocervical junction: No mass, Chiari malformation, or basi lar invagination. Sella: No mass. Paranasal/mastoid sinuses: Imag ed portions unremarkable. IMPRESSION: No acute intracranial abnormalit y. No change since CT brain from 09/12/2019. Signed by: Dr. Harvey wheeler M.D. on 06/21/2020 9:34 PM Dictated By: HARVEY MENA MD Electronic ally Signed By: HARVEY MENA MD on 06/21/202133 Transcribed By: ROBI on 06/21/202133 COPY TO: DENISSE MORTENSEN NP Plasma globulin measurement (mass/volume)2020-06-21 05:55:00* Test Item Value Reference Range Interpretation Comments Globulin (test code = 92827-0) 3.3 2.3-3.5 [facility] or plasma albumin/globulin mass syhqc9951-43-67 05:55:00* Test Item Value Reference Range Interpretation Comments Albumin/Globulin Ratio (test code = 1759-0) 0.8 0.8-2.0 [facility] HospitalFluoroscopic procedure less than one hour qiipgcmb9205-22-25 12:59:00* Test Item Value Reference Range Interpretation Comments Coronavirus (PCR) (test code = Coronavirus (PCR)) NOT DETECTED NOTD ETECTED [employer] SARS-CoV-2 assay is a nucleic amplification test intended for the qualitative detection of RNA from SARS-CoV-2 from nasopharyngeal (SPA MANAGER/ESTHETICIAN) specimens. It is used under Emergency Use Authorization (EUA) by FDA.A positive result is indicative of the presence of SARS-CoV-2 RNA. Clinical correlation with patient history and other diagnostic information is necessary to determine patient infe ction status.A negative (Not Detected) result does not preclude SARS-CoV-2 infec tion. Clinical Correlation with patient history and other diagnostic information should be used in patient management decisions.Invalid: Unable to generate a va lid result on this specimen. Please submit a new specimen for reprat testing oc clinically indicated.Tesing performed by:[facility] [address] [place] [id number], Faraz Kaba MD, PhD [facility] HospitalANKLE 3 + VIEWS FFIUH2515-66-72 09:50:00 [facility] [address] [place] [address] Patient Name: TAI GRANT MR #: [id number] : 1960 Age/Sex: 60/F Req #: [id number] Adm Physician: Ordered by: KENDALL RUSSO DO R eport #: [id number] Location: ER Room /Bed: Procedure: [id number] DX/ANKLE 3 + VIEWS RIGHT Exam Date: 06/20/20 Exam Time: 919 REPORT STATUS: Signed Exam: ANKLE 3 + VIEWS RIGHT History: Ankle pain Comparison: Right ankle radiographs 03/19/2018 Findings: No acute displaced fractures. Diffuse osseous demineralization. Redemonstrated irregularity along the posterior aspect of th e calcaneus, may represent sequela of prior trauma or surgery. No joint dre lignment or dislocation. Ankle mortise appears symmetric. Mild degenerative ch anges of the subtalar and midfoot joints. Mild diffuse soft tissue swelling wi th focal fullness in the region of the distal Achilles tendon. Impress ion: 1. Mild diffuse soft tissue swelling with focal fullness in the region o f the distal Achilles tendon, may represent sequela of prior trauma/surgery ho wever cannot exclude acute Achilles tendon injury in appropriate clinical sett ing. 2. No acute osseous abnormality. Signed by: Jose Jean MD on 06/20/2020 9:59 AM Dictated By: JOSE JEAN MD 8 Transcribed By: ROBI on 06/20/20958 COPY TO: KENDALL RUSSO DO Fluoroscopic procedure less than one hour kjtjcwah5523-78-80 09:35:00* Test Item Value Reference Range Interpretation Comments Lactic Acid Level (test code = Lactic Acid Level) 1.9 0.5- 2.0 [facility] HospitalBlood kzydbzd4235-71-15 09:35:00* Test Item Value Reference Range Interpretation Comments Blood Culture (test code = 21482725) NO GROWTH AFTER 5 DAYS, FINAL REPORT [facility] HospitalActivated partial thromboplastin time (aPTT) in platelet poor plasma by coagulation sjyho2383-88-87 10:45:00* Test Item Value Reference Range Interpretation Comments Activated Partial Thromboplast Time (test code = 58463-1) 37.9 23.8-35.5 [facility] HospitalFluoroscopic procedure less than one hour wuygbzfs6656-51-17 08:03:00* Test Item Value Reference Range Interpretation Comments Differential Total Cells Counted (test code = Erica mistryl Total Cells Counted) 100 [facility] blood neutrophils/100 leukocytes 2020-03-21 08:03:00* Test Item Value Reference Range Interpretation Comments Neutrophils % (Manual) (test code = 81016-1) 52 40-74 [facility] blood band neutrophils form/100 pssqacokgw7516-75-88 08:03:00* Test Item Value Reference Range Interpretation Comments Band Neutrophils % (test code = 764-1) 1 [facility] blood lymphocytes/100 leukocytes 2020-03-21 08:03:00* Test Item Value Reference Range Interpretation Comments Lymphocytes % (Manual) (test code = 737-7) 21 19-48 [facility] blood monocytes/100 leukocytes 2020-03-21 08:03:00* Test Item Value Reference Range Interpretation Comments Monocytes % (Manual) (test code = 744-3) 10 3.4-9.0 [facility] blood eosinophil count as percentage of total pelviuoxxc5224-30-80 08:03:00* Test Item Value Reference Range Interpretation Comments Eosinophils % (Manual) (test code = 714-6) 15 0-7 [facility] blood myelocytes/100 leukocytes 2020-03-21 08:03:00* Test Item Value Reference Range Interpretation Comments Myelocytes % (test code = 749-2) 1 0-0 [facility] nucleated erythrocytes count (number/volume)2020-03-21 08:03:00* Test Item Value Reference Range Interpretation Comments Nucleated Red Blood Cells (test code = 80772-5) 3 [facility] platelets count by estimate (number/volume)2020-03-21 08:03:00* Test Item Value Reference Range Interpretation Comments Platelet Estimate (test code = 56130-0) ADEQUATE [facility] HospitalPlatelet yrzwbftbop8868-06-79 08:03:00* Test Item Value Reference Range Interpretation Comments Platelet Morphology Comment (test code = 96387-2) NORMAL [facility] HospitalBlood polychromasia detection by light rmvzmmcgqr5711-65-36 08:03:00* Test Item Value Reference Range Interpretation Comments Polychromasia (test code = 97783-4) FEW [facility] HospitalBlood anisocytosis detection by light ovedaicvlq4247-88-97 08:03:00* Test Item Value Reference Range Interpretation Comments Anisocytosis (test code = 702-1) MODERATE [facility] HospitalRBC zmocujpavr1806-44-26 08:03:00* Test Item Value Reference Range Interpretation Comments Red Cell Morphology Comment (test code = 6742-1) ABNORMAL [facility] HospitalCHEMISTRY MISCELLANEOUS TTEP4105-50-12 14:05:00* Test Item Value Reference Range Interpretation Comments CHEMISTRY TEST (test code = TESTC) NeoTYPE [...] Analysis Not Detected PTPN11 Mutation Analysis Not MhuslvheFGTM2W Mutation Not Detected RUNX1 Mutation Analysis Not [...] FLT3, HRAS, IDH1, IDH2, JAK2 Exon 12-14, KUV0A001Y, KIT, KRAS, NF1, NPM1, NRAS, PDGFRA, PPM1D, PTEN,PTPN11, RUNX1, SETBP1, SF3B1, SRSF2, STAG2, TET2, TP53,U2AF1, ZRSR2 Sandi Carlos M.D. FLUORESCENCE INSITU NTKIEQ6077-26-75 14:05:00* Test Item Value Reference Range Interpretation Comments FLUORESCENCE INSITU HYBRID (test code = FISH) FISH Analysis: MDS Extended Results: Normal Interpretation:inv(3)/t(3;3): Not DetectedDel(5q): Not DetectedMonosomy 5: Not DetectedDel(7q): Not DetectedMonosomy 7: Not DetectedTrisomy 8: Not DetectedDel(17p) TP53: Not DetectedTrisomy 19: Not DetectedTetrasomy 19: Not DetectedDel(20q): Not DetectedETV6 Rearrangement: Not ByuouvhiQIP8D(MLL) Rearrangement: Not Detected Fluorescence in situ hybridizati on (FISH) analysis wasperformed using a specific set of probes for myelodysplasticsyndrome. Counts for all probe signals were within the normalreference range. This finding represents a NORMAL result. Probe Set Detail:+19: nuc constantino(ACP5,BLVRB)x2[199]Chromosome 8: nuc constantino(CEN8x2)[200]Chromosome 20: nuc constantino(I68Y899,20qter)X2[199]5q-/-5/+5 tricolor: nuc constantino(hTERT,EGR1,RPS14)x2[199]7q-/-7 tri: nuc constantino(CEN7,D 3T8505,V8Z0080)x2[200]p53 (17p13.1)/ NF1 (17q11): nuc constantino(TP53,NF1)x2[200]ETV6 (12p13): nuc constantino(ETV6x2)[198]KMT2A (MLL) (11q23)*: nuc constantino(VAA9Yy4)[200]RPN1/MECOM (3q): nuc constantino(RPN1,MECOM)x2[191] Comments:The results of this [...] SignatureDaelin Townsend M.D., Pathologist CHROMOSOME SEA BONE KYVMOK8221-94-25 14:05:00* Test Item Value Reference Range Interpretation [...] M.D., Ph.D., Pathologist - [facility]. LEUK/LYMPHOMA [id number] 14:05:00* Test Item Value Reference Range Interpretation [...] CD41, CD45, CD56, CD64, CD71, CD117,CD123, CD138, DO781r, cMPO, FMC-7, HLA-DR, Nectar, Lambda, nTdT (37 Markers) Microscopic DescriptionA digital image of a cytospin slide was reviewed for QApurposes. Sandi [facility] Gilbert[facility] Ho M.D., Hematopathologist VQOWRI9249-22-42 12:54:00* Test Item Value Reference Range Interpretation Comments GLUBED (test code = GLUBED) 94 MG/DL 70-110 N Performed by certified radial saw operator at [facility] VKHUXT7591-53-34 08:07:00* Test Item Value Reference Range Interpretation Comments GLUBED (test code = GLUBED) 144 MG/DL 70-110 H Performed by certified radial saw operator at [facility] VDBIHG8961-92-94 08:04:00* Test Item Value Reference Range Interpretation Comments GLUBED (test code = GLUBED) 87 MG/DL 70-110 N Performed by certified radial saw operator at [facility] KYLDIH0426-74-80 03:13:00* Test Item Value Reference Range Interpretation Comments GLUBED (test code = GLUBED) 80 MG/DL 70-110 N Performed by certified radial saw operator at [facility] TAVNGT9952-61-50 19:31:00* Test Item Value Reference Range Interpretation Comments GLUBED (test code = GLUBED) 75 MG/DL 70-110 N Performed by certified radial saw operator at [facility] WABOSD0418-87-77 17:44:00* Test Item Value Reference Range Interpretation Comments GLUBED (test code = GLUBED) 110 MG/DL 70-110 N Performed by certified radial saw operator at [facility] KVISRZ7315-78-97 09:58:00* Test Item Value Reference Range Interpretation Comments GLUBED (test code = GLUBED) 131 MG/DL 70-110 H Performed by certified radial saw operator at [facility] YGPIYU7151-91-18 08:17:00* Test Item Value Reference Range Interpretation Comments GLUBED (test code = GLUBED) 127 MG/DL 70-110 H Performed by certified radial saw operator at [facility] CBC W/AUTO [id number] 08:13:00* Test Item Value Reference Range Interpretation [...] (test code = MDIFF) NO BASIC METABOLIC PLMXR2761-37-56 08:09:00* Test Item Value Reference Range Interpretation [...] code = CA) 7.9 mg/dL 8.0-10.5 L RCGPIBHNQTC7484-82-93 08:09:00* Test Item Value Reference Range Interpretation Comments PHOSPHOROUS (test code = PHOS) 6.1 MG/DL 2.5-4.9 H AGIFONQBH7662-85-28 08:09:00* Test Item Value Reference Range Interpretation Comments MAGNESIUM (test code = MAG) 2.90 mg/dL 1.8-2.4 H CBC W/AUTO [id number] 05:04:00* Test Item Value Reference Range Interpretation [...] REQUIRED (test code = MDIFF) NO RBC OIQRTBWYAC8123-94-03 05:04:00* Test Item Value Reference Range Interpretation Comments POLYCHROMASIA (test code = POLC) SLIGHT POIKILOCYTOSIS (test code = POIK) 1+ ANISOCYTOSIS (test code = ANISO) 1+ MACROCYTOSIS (test code = MACR) 1+ TEAR DROP CELLS (test code = TEAR) FEW SCHISTOCYTES (test code = PAULY) FEW CBC W/AUTO [id number] 04:44:00* Test Item Value Reference Range Interpretation [...] REQUIRED (test code = MDIFF) NO RBC YNSEVGOBGH7828-90-76 04:44:00* Test Item Value Reference Range Interpretation Comments ANISOCYTOSIS (test code = ANISO) CBC W/AUTO [id number] 04:44:00* Test Item Value Reference Range Interpretation [...] REQUIRED (test code = MDIFF) NO RBC [id number] 04:44:00* Test Item Value Reference Range Interpretation Comments ANISOCYTOSIS (test code = ANISO) [id number] 17:25:00* Test Item Value Reference Range Interpretation Comments GLUBED (test code = GLUBED) 130 MG/DL 70-110 H Performed by certified radial saw operator at [facility] BASIC METABOLIC [id number] 12:46:00* Test Item Value Reference Range Interpretation [...] code = CA) 8.4 mg/dL 8.0-10.5 N [id number] 12:46:00* Test Item Value Reference Range Interpretation Comments MAGNESIUM (test code = MAG) 2.70 mg/dL 1.8-2.4 H CBC W/O [id number] 12:29:00* Test Item Value Reference Range Interpretation [...] code = MPV) 9.5 fL 7.0-9.0 H [id number] 12:11:00* Test Item Value Reference Range Interpretation Comments GLUBED (test code = GLUBED) 100 MG/DL 70-110 N Performed by certified radial saw operator at [facility] - XR ABDOMEN 1V (KUB)2020-02-25 11:16:00 FAX: Gerda Garcia MD [phone] [place]: St: ADM FAX: Callum Choi MD [phone] FAX: Jaspreet Perea MD [phone] Name: TAI GRANT [facility] : 1960 Age/S: 59/F [address] [place] [address] Unit #: [id number] Loc: G.6630 [place] [address] Phys: Gerda Garcia MD Acct: [id number] Dis Date: Status: ADM IN ONE #: [phone] Exam Date: 02/25/20201101 FAX #: [phone] Reason: c diff EXAMS: CPT CODE: [id number] XR ABDOMEN 1V (KUB) 17668 Procedure: Abd ominal Radiograph. Clinical Indication: C. [...] By: Emma Orig Print D/T: S: 02/25/20 (4731) PAGE 1 Signed Report [id number] 08:09:00* Test Item Value Reference Range Interpretation Comments GLUBED (test code = GLUBED) 99 MG/DL 70-110 N Performed by certified radial saw operator at [facility] [id number] 19:54:00* Test Item Value Reference Range Interpretation Comments GLUBED (test code = GLUBED) 140 MG/DL 70-110 H Performed by certified radial saw operator at [facility] [id number] 16:51:00* Test Item Value Reference Range Interpretation Comments GLUBED (test code = GLUBED) 98 MG/DL 70-110 N Performed by certified radial saw operator at [facility] CHEMISTRY MISCELLANEOUS [id number] 14:43:00* Test Item Value Reference Range Interpretation Comments CHEMISTRY TEST (test code = TESTC) CHEMISTRY TEST RESULT (test code = RESULTC) FLUORESCENCE INSITU [id number] 14:43:00* Test Item Value Reference Range Interpretation Comments FLUORESCENCE INSITU HYBRID (test code = FISH) FISH Analysis: MDS Extended Results: Normal Interpretation:inv(3)/t(3;3): Not DetectedDel(5q): Not DetectedMonosomy 5: Not DetectedDel(7q): Not DetectedMonosomy 7: Not DetectedTrisomy 8: Not DetectedDel(17p) TP53: Not DetectedTrisomy 19: Not DetectedTetrasomy 19: Not DetectedDel(20q): Not DetectedETV6 Rearrangement: Not JoywtprvCGP5B(MLL) Rearrangement: Not Detected Fluorescence in situ hybridizati on (FISH) analysis wasperformed using a specific set of probes for myelodysplasticsyndrome. Counts for all probe signals were within the normalreference range. This finding represents a NORMAL result. Probe Set Detail:+19: nuc constantino(ACP5,BLVRB)x2[199]Chromosome 8: nuc constantino(CEN8x2)[200]Chromosome 20: nuc constantino(B34M780,20qter)X2[199]5q-/-5/+5 tricolor: nuc constantino(hTERT,EGR1,RPS14)x2[199]7q-/-7 tri: nuc constantino(CEN7,D 1U0161,A6L3078)x2[200]p53 (17p13.1)/ NF1 (17q11): nuc constantino(TP53,NF1)x2[200]ETV6 (12p13): nuc constantino(ETV6x2)[198]KMT2A (MLL) (11q23)*: nuc constantino(GUE1Rm5)[200]RPN1/MECOM (3q): nuc constantino(RPN1,MECOM)x2[191] Comments:The results of this [...] SignatureOrlin Townsend M.D., Pathologist CHROMOSOME SEA BONE [id number] 14:43:00* Test Item Value Reference Range Interpretation [...] 24EB, 48EBBanding Technique: GTGBanding Resolution: 400 Electronic SignatureMohamgreer Flores MD, MS, ABMGG, FACMGG Vi Lozada M.D., Ph.D., Pathologist - [facility]. LEUK/LYMPHOMA [id number] 14:43:00* Test Item Value Reference Range Interpretation [...] CD41, CD45, CD56, CD64, CD71, CD117,CD123, CD138, JS416a, cMPO, FMC-7, HLA-DR, Nectar, Lambda, nTdT (37 Markers) Microscopic DescriptionA digital image of a cytospin slide was reviewed for QApurposes. Sandi Ho M.D., Hematopathologist CHEMISTRY MISCELLANEOUS [id number] 14:41:00* Test Item Value Reference Range Interpretation Comments CHEMISTRY TEST (test code = TESTC) CHEMISTRY TEST RESULT (test code = RESULTC) FLUORESCENCE INSITU [id number] 14:41:00* Test Item Value Reference Range Interpretation Comments FLUORESCENCE INSITU HYBRID (test code = FISH) FISH Analysis: MDS Extended Results: Normal Interpretation:inv(3)/t(3;3): Not DetectedDel(5q): Not DetectedMonosomy 5: Not DetectedDel(7q): Not DetectedMonosomy 7: Not DetectedTrisomy 8: Not DetectedDel(17p) TP53: Not DetectedTrisomy 19: Not DetectedTetrasomy 19: Not DetectedDel(20q): Not DetectedETV6 Rearrangement: Not XlmmhqnkCAG2G(MLL) Rearrangement: Not Detected Fluorescence in situ hybridizati on (FISH) analysis wasperformed using a specific set of probes for myelodysplasticsyndrome. Counts for all probe signals were within the normalreference range. This finding represents a NORMAL result. Probe Set Detail:+19: nuc constantino(ACP5,BLVRB)x2[199]Chromosome 8: nuc constantino(CEN8x2)[200]Chromosome 20: nuc constantino(S40V785,20qter)X2[199]5q-/-5/+5 tricolor: nuc constantino(hTERT,EGR1,RPS14)x2[199]7q-/-7 tri: nuc constantino(CEN7,D 4C0971,Y2K8182)x2[200]p53 (17p13.1)/ NF1 (17q11): nuc constantino(TP53,NF1)x2[200]ETV6 (12p13): nuc constantino(ETV6x2)[198]KMT2A (MLL) (11q23)*: nuc constantino(JLG9Wz3)[200]RPN1/MECOM (3q): nuc constantino(RPN1,MECOM)x2[191] Comments:The results of this [...] SignatureOrlin Townsend M.D., Pathologist CHROMOSOME SEA BONE [id number] 14:41:00* Test Item Value Reference Range Interpretation Comments CHROMOSOME SEA BONE MARROW (test code = CHROMBM) LEUK/LYMPHOMA [id number] 14:41:00* Test Item Value Reference Range Interpretation [...] CD41, CD45, CD56, CD64, CD71, CD117,CD123, CD138, QL660k, cMPO, FMC-7, HLA-DR, Nectar, Lambda, nTdT (37 Markers) Microscopic DescriptionA digital image of a cytospin slide was reviewed for QApurposes. Sandi Ho M.D., Hematopathologist CHEMISTRY MISCELLANEOUS [id number] 14:38:00* Test Item Value Reference Range Interpretation Comments CHEMISTRY TEST (test code = TESTC) CHEMISTRY TEST RESULT (test code = RESULTC) FLUORESCENCE INSITU [id number] 14:38:00* Test Item Value Reference Range Interpretation Comments FLUORESCENCE INSITU HYBRID (test code = FISH) CHROMOSOME SEA BONE [id number] 14:38:00* Test Item Value Reference Range Interpretation Comments CHROMOSOME SEA BONE MARROW (test code = CHROMBM) LEUK/LYMPHOMA [id number] 14:38:00* Test Item Value Reference Range Interpretation [...] CD41, CD45, CD56, CD64, CD71, CD117,CD123, CD138, VV772y, cMPO, FMC-7, HLA-DR, Nectar, Lambda, nTdT (37 Markers) Microscopic DescriptionA digital image of a cytospin slide was reviewed for QApurposes. Electronic SignatureSanisa Ho M.D., Hematopathologist - [facility] [id number] 14:19:00 Name: TAI GRANT [facility] : 1960 Age/S: 59 / F [address] [place] [address] Blvd Unit #: [id number] Loc: [place] [address] Phys: Satya Almanza MD Acct: [id number] Dis Date: Status: ADM IN PHONE #: [phone] Exam Date: 02/24/2020 1244 FAX #: [phone] Reason: SYNCOPE EXAMS: CPT CODE: [id number] [facility] JIGNA 96329 Bilateral carotid ultrasound 02/24/2020 HISTORY: Syncope TECHNIQUE: [...] Limited study due to external bandaging. SL: [id number] at 1419 Reported and signed by: Vamsi Pabon M.D. CC: Satya Almanza MD; Callum Beltre MD; Jaspreet Jerez MD Technologist: Cristine Salazar RDMS(AB)(OB) Trnscb Date/Time: 02/24/2020 (141) [id number] Orig Print D/T: S: 02/24/2020 (4102) Probe: PAGE 1 Signed Report GLUBED 2020-02-24 12:29:00* Test Item Value Reference Range Interpretation Comments GLUBED (test code = GLUBED) 131 MG/DL 70-110 H Performed by certified radial saw operator at [facility] [id number] 08:54:00* Test Item Value Reference Range Interpretation Comments GLUBED (test code = GLUBED) 93 MG/DL 70-110 N Performed by certified radial saw operator at [facility] CBC W/AUTO [id number] 04:51:00* Test Item Value Reference Range Interpretation [...] REVIEWED, CONSISTENT WITH AUTO DIFF. BASIC METABOLIC [id number] 04:50:00* Test Item Value Reference Range Interpretation [...] code = CA) 8.5 mg/dL 8.0-10.5 N [id number] 04:50:00* Test Item Value Reference Range Interpretation Comments MAGNESIUM (test code = MAG) 1.60 mg/dL 1.8-2.4 L CBC W/AUTO [id number] 04:28:00* Test Item Value Reference Range Interpretation [...] MANUAL DIFF REQUIRED (test code = MDIFF) [id number] 04:11:00* Test Item Value Reference Range Interpretation Comments GLUBED (test code = GLUBED) 102 MG/DL 70-110 N Performed by certified radial saw operator at [facility] [id number] 20:22:00* Test Item Value Reference Range Interpretation Comments GLUBED (test code = GLUBED) 127 MG/DL 70-110 H Performed by certified radial saw operator at [facility] [id number] 18:22:00* Test Item Value Reference Range Interpretation Comments GLUBED (test code = GLUBED) 132 MG/DL 70-110 H Performed by certified radial saw operator at [facility] [id number] 17:36:00* Test Item Value Reference Range Interpretation Comments GLUBED (test code = GLUBED) 103 MG/DL 70-110 N Performed by certified radial saw operator at [facility] [id number] 14:35:00* Test Item Value Reference Range Interpretation Comments GLUBED (test code = GLUBED) 122 MG/DL 70-110 H Performed by certified radial saw operator at [facility] [id number] 14:35:00* Test Item Value Reference Range Interpretation Comments GLUBED (test code = GLUBED) 118 MG/DL 70-110 H Performed by certified radial saw operator at [facility] CBC W/AUTO [id number] 10:26:00* Test Item Value Reference Range Interpretation [...] REQUIRED (test code = MDIFF) YES WBC [id number] 10:26:00* Test Item Value Reference Range Interpretation [...] PLATELETS FEW LARGE PLTS SEEN CBC W/AUTO [id number] 10:18:00* Test Item Value Reference Range Interpretation [...] REQUIRED (test code = MDIFF) YES WBC [id number] 10:18:00* Test Item Value Reference Range Interpretation Comments ANISOCYTOSIS (test code = ANISO) PLATELET ESTIMATE (test code = PLTEST) THOUSAND ADEQUATE CBC W/AUTO [id number] 10:18:00* Test Item Value Reference Range Interpretation [...] REQUIRED (test code = MDIFF) YES WBC [id number] 10:18:00* Test Item Value Reference Range Interpretation Comments ANISOCYTOSIS (test code = ANISO) PLATELET ESTIMATE (test code = PLTEST) THOUSAND ADEQUATE BASIC METABOLIC [id number] 08:51:00* Test Item Value Reference Range Interpretation [...] code = CA) 8.6 mg/dL 8.0-10.5 N [id number] 08:35:00* Test Item Value Reference Range Interpretation Comments GLUBED (test code = GLUBED) 90 MG/DL 70-110 N Performed by certified radial saw operator at [facility] CBC W/AUTO [id number] 07:40:00* Test Item Value Reference Range Interpretation [...] MANUAL DIFF REQUIRED (test code = MDIFF) [id number] 07:08:00* Test Item Value Reference Range Interpretation Comments GLUBED (test code = GLUBED) 90 MG/DL 70-110 N Performed by certified radial saw operator at [facility] [id number] 20:04:00* Test Item Value Reference Range Interpretation Comments GLUBED (test code = GLUBED) 83 MG/DL 70-110 N Performed by certified radial saw operator at [facility] [id number] 17:30:00* Test Item Value Reference Range Interpretation Comments GLUBED (test code = GLUBED) 124 MG/DL 70-110 H Performed by certified radial saw operator at [facility] [id number] 17:30:00* Test Item Value Reference Range Interpretation Comments GLUBED (test code = GLUBED) 111 MG/DL 70-110 H Performed by certified radial saw operator at [facility] [id number] 11:10:00* Test Item Value Reference Range Interpretation Comments GLUBED (test code = GLUBED) 99 MG/DL 70-110 N Performed by certified radial saw operator at [facility] SURGICAL [id number] 10:41:00 RUN DATE: 02/22/20 [facility] *LIVE* PAGE 1 RUN TIME: 1041 Specimen Inqui ry RUN USER: INTERFACE PATIENT: TAI GRANT ACCT #: [id number] [facility] #[facility] [id number] AGE/SX: 59/F ROOM: [facility] RE02/09/20REG DR: Jonathan Vogel : 64 BED: 1 DIS: 02/17/20 STATUS: DIS IN TLOC: SPEC #: [id number] RECD: 02/15/20 STATUS: NITO TUCKER #: [id number] JAZMINE: 02/15/[address]: Jonathan Vogel MD ENTERED: 02/21/20 SP TYPE: SURG SPEC OTHR DR: Self R eferred Jeanette Mayo MD, Nicholas PA-C Hafez, Jawdat R DPM L Fritz castillo MD, Alberto J MD Rosen blatt, Michael MD See rangan, Geetha MD Sub ramanyam, Kalyanam MDORDERED: GM LEVEL 4 CODES: [id number] - BONE MARROW, NO COPIES TO: Jonathan Meyers MD [address] [facility] [address] [place] [address] Jeanette Mayo MD [address] [place] [address] Atul Clarke PA-C [address] [facility] [address] [place] [address] Edis LeonardM [address] [address] Fritz Webb MD [address] [place] [address] Jaspreet Jerez MD [address] [place] [address] C ONTINUED ON NEXT PAGE RUN DATE: 02/22/20 [facility] *LIVE* PAGE 2 RUN TIME: 1041 Specimen Inquiry RUN USER: INTERFACE SPEC #: [id number] PATIENT: TAI GRANT #[id number] (Continued) - COPIES TO: (Continued) Faraz Colin MD [address] [place] [address] Bertha Martin MD [address] [place] [address] Feliz Tam MD [address] [facility] [address] [place] [address] PROCEDURES: GM LEVEL 4 (Inc omplete) TISSUES: 1. BONE MARROW, NOS - Bone marrow, left iliac, asp. bx. COMMENTS The case is sent to [facility] for consult, se e outside reports. The [...] CONTINUED ON NEXT PAGE RUN DATE: 02/22/20 [facility] *LIVE* PAGE 3 RUN TIME: 1041 S catherine Inquiry RUN USER: INTERFACE SPEC #: [id number] PATIENT: TAI GRANT #[id number] (Continued) GROSS AND MICROSCOPIC (Continued) Megakaryocytes are [...] 02/22/20 1041 END OF REPO RT SURGICAL [id number] 10:41:00 RUN DATE: 03/29/20 [facility] *LIVE* PAGE 1 RUN TIME: 847 Specimen Inqui ry RUN USER: INTERFACE PATIENT: TAI GRANT ACCT #: [id number] LOC: [facility] U #: [id number] AGE/SX: 59/F ROOM: [facility] RE02/09/20REG DR: Jonathan Vogel : 64 BED: 1 DIS: 02/17/20 STATUS: DIS IN TLOC: SPEC #: [id number] RECD: 02/15/20 STATUS: SOUT REQ #: [id number] 200 JAZMINE: 02/15/[address] [facility] [address]: Jonathan Vogel MD ENTERED: 02/21/20 SP TYPE: SURG SPEC OTHR DR: Jeanette Morataya MD, Nicholas PA-C Hafez, Jawdat R DPM L Fritz castillo MD, Alberto J MD Rosen blatt, Michael MD See rangan, Geetha MD Sub ramanyam, Kalyanam MDORDERED: GM LEVEL 4 CODES: [id number] - BONE MARROW, NO COPIES TO: S elf Referred Jonathan Vogel MD [address] [facility] [address] [place] [address] Jeanette Mayo MD [address] [place] [id number] Atul Clarke PA-C [address] [place] [address] Edis Leonard DPM [address] [place] [address] [place] [address] Fritz Webb MD [address] [place] [address] Jaspreet Jerez MD [address] [facility] [place] [address] C ONTINUED ON NEXT PAGE RUN DATE: 03/29/20 [facility] *LIVE* PAGE 2 RUN TIME: 0848 Specimen Inquiry RUN USER: INTERFACE SPEC #: [id number] PATIENT: TAI GRANT #[id number] (Continued) - COPIES TO: (Continued) Faraz Colin MD [address] [place] [address] Bertha Martin MD [address] [place] [address] Feliz Tam MD [address] [place] [address] [address] [place] [address] PROCEDURES: GM LEVEL 4 (Inc omplete) TISSUES: 1. BONE MARROW, NOS - Bone marrow, left iliac, asp. bx. ADDENDUM FINDINGS Addendum #1 Entered: 03/28/20-08 43 [facility]: Final Diagnosis: -Consistent with low grade myelodysplastic syndrome involving a hypercellular bone marrow 55% cellular with no g enetic or chromosomal abnormalities. Interpr etation by [employer] [facility], see outside reports. Addendum S igned SIGNATURE ON FILE Orlin Alvarez DO 03/29/20 0848 ------- ----- COMMENTS The case is sent to [facility] for consult, see o lilianeside reports. The patient has pancytopenia, the current [...] CONTINUED ON NEXT PAGE RUN DATE: 03/29/20 [facility] *LIVE* PAGE 3 RUN TIME: 847 Specimen Inq [employer] RUN USER: INTERFACE SPEC #: [id number] PATIENT: JAIRON GRANT #[id number] (Continued) COMMENTS (Continued) assessment of a hematopathology [...] leukemia REVIEWED BY: WALDEMAR Signed SIGNATURE ON Orlin Anderson Shanon YI 02/22/20 1041 END OF REPORT GLUBED 2020-02-21 21:28:00* Test Item Value Reference Range Interpretation Comments GLUBED (test code = GLUBED) 87 MG/DL 70-110 N Performed by certified radial saw operator at [facility] [id number] 17:48:00* Test Item Value Reference Range Interpretation Comments GLUBED (test code = GLUBED) 130 MG/DL 70-110 H Performed by certified radial saw operator at [facility] CBC W/AUTO [id number] 13:54:00* Test Item Value Reference Range Interpretation [...] REQUIRED (test code = MDIFF) NO PLT [id number] 13:54:00* Test Item Value Reference Range Interpretation Comments PLATELET ESTIMATE (test code = PLTEST) 108-135 THOUSAND ADEQUATE PLATELET MORPHOLOGY (test code = PLTMORPH) LARGE PLATELETS FEW LARGE PLTS SEEN BASIC METABOLIC [id number] 13:49:00* Test Item Value Reference Range Interpretation [...] CA) 8.7 mg/dL 8.0-10.5 N CBC W/AUTO [id number] 13:30:00* Test Item Value Reference Range Interpretation [...] REQUIRED (test code = MDIFF) NO PLT [id number] 13:30:00* Test Item Value Reference Range Interpretation Comments PLATELET ESTIMATE (test code = PLTEST) THOUSAND ADEQUATE CBC W/AUTO [id number] 13:30:00* Test Item Value Reference Range Interpretation [...] REQUIRED (test code = MDIFF) NO PLT [id number] 13:30:00* Test Item Value Reference Range Interpretation Comments PLATELET ESTIMATE (test code = PLTEST) THOUSAND ADEQUATE [id number] 08:41:00* Test Item Value Reference Range Interpretation Comments GLUBED (test code = GLUBED) 82 MG/DL 70-110 N Performed by certified radial saw operator at [facility] [id number] 21:07:00* Test Item Value Reference Range Interpretation Comments GLUBED (test code = GLUBED) 85 MG/DL 70-110 N Performed by certified radial saw operator at [facility] [id number] 17:23:00* Test Item Value Reference Range Interpretation Comments GLUBED (test code = GLUBED) 91 MG/DL 70-110 N Performed by certified radial saw operator at [facility] [id number] 17:02:00* Test Item Value Reference Range Interpretation Comments GLUBED (test code = GLUBED) 85 MG/DL 70-110 N Performed by certified radial saw operator at [facility] CBC W/AUTO [id number] 12:09:00* Test Item Value Reference Range Interpretation [...] REQUIRED (test code = MDIFF) YES WBC [id number] 12:09:00* Test Item Value Reference Range Interpretation [...] code = PLTMORPH) LARGE PLATELETS CBC W/AUTO [id number] 12:06:00* Test Item Value Reference Range Interpretation [...] REQUIRED (test code = MDIFF) YES WBC [id number] 12:06:00* Test Item Value Reference Range Interpretation Comments ANISOCYTOSIS (test code = ANISO) PLATELET ESTIMATE (test code = PLTEST) THOUSAND ADEQUATE CBC W/AUTO [id number] 12:06:00* Test Item Value Reference Range Interpretation [...] REQUIRED (test code = MDIFF) YES WBC [id number] 12:06:00* Test Item Value Reference Range Interpretation Comments ANISOCYTOSIS (test code = ANISO) PLATELET ESTIMATE (test code = PLTEST) THOUSAND ADEQUATE [id number] 08:32:00* Test Item Value Reference Range Interpretation Comments GLUBED (test code = GLUBED) 82 MG/DL 70-110 N Performed by certified radial saw operator at [facility] - XR CHEST 1 [id number] 08:28:00 FAX: Klely Jacob NP [phone] [place]: St: ADM FAX: Callum Choi MD [phone] FAX: Jaspreet Perea MD [phone] Name: TAI GRANT [facility] : 1960 Age/S: 59/F [address] [place] [address] Unit #: [id number] Loc: [address] [place] [address] Phys: Kelly Jacob NP Acct: [id number] Dis Date: Status: ADM IN ONE #: [phone] Exam Date: 02/20/2020 05 FAX #: [phone] Reason: pneumonia EXAMS: CPT CODE: [id number] XR CHEST 1 V 52265 PROCEDURE: DANILO ST SINGLE VIEW INDICATION: Pneumonia COMPARISON: Mul tiple [...] lung bases. No definite pneumoni a. SL: [id number] Electronic ally Signed by Fauzia Fontenot on 02/20/2020 at 0828 Reported and signed by: Fernando menezes M.D. CC: Kelly Jacob NP; Callum Beltre MD; Jaspreet mccain MD Technologist: RT José Miguel(R) Trnscrd Date/Time/By: 02/20/2020 (827) : By: Alicia Orig Print D/T: S: (2031) PAGE 1 Signed Repo rt COMPREHENSIVE METABOLIC [id number] 06:46:00* Test Item Value Reference Range Interpretation [...] code = ALKP) 83 IUnit/L 20-125 N [id number] 06:46:00* Test Item Value Reference Range Interpretation Comments PHOSPHOROUS (test code = PHOS) 2.8 MG/DL 2.5-4.9 N [id number] 06:46:00* Test Item Value Reference Range Interpretation Comments MAGNESIUM (test code = MAG) 1.70 mg/dL 1.8-2.4 L CALCIUM [id number] 06:46:00* Test Item Value Reference Range Interpretation Comments CALCIUM IONIZED (test code = LAMONT) 1.17 MMOL/L 1.12-1.32 N PROTHROMBIN [id number] 06:32:00* Test Item Value Reference Range Interpretation [...] Infarction (to prevent recurrent infarct). COMPREHENSIVE METABOLIC [id number] 06:27:00* Test Item Value Reference Range Interpretation [...] TOTAL (test code = ALKP) IUnit/L 20-125 [id number] 06:27:00* Test Item Value Reference Range Interpretation Comments PHOSPHOROUS (test code = PHOS) MG/DL 2.5-4.9 [id number] 06:27:00* Test Item Value Reference Range Interpretation Comments MAGNESIUM (test code = MAG) mg/dL 1.8-2.4 CALCIUM [id number] 06:27:00* Test Item Value Reference Range Interpretation Comments CALCIUM IONIZED (test code = LAMONT) 1.17 MMOL/L 1.12-1.32 N CBC W/AUTO [id number] 06:22:00* Test Item Value Reference Range Interpretation [...] DIFF REQUIRED (test code = MDIFF) HGB [id number] 21:37:00* Test Item Value Reference Range Interpretation Comments HEMOGLOBIN (test code = HGB) 8.9 g/dL 11.0-15.0 L HEMATOCRIT (test code = HCT) 28.3 % 33.0-45.0 L [id number] 20:27:00* Test Item Value Reference Range Interpretation Comments GLUBED (test code = GLUBED) 142 MG/DL 70-110 H Performed by certified radial saw operator at [facility] [id number] 17:47:00* Test Item Value Reference Range Interpretation Comments GLUBED (test code = GLUBED) 145 MG/DL 70-110 H Performed by certified radial saw operator at [facility] [id number] 11:46:00* Test Item Value Reference Range Interpretation Comments GLUBED (test code = GLUBED) 116 MG/DL 70-110 H Performed by certified radial saw operator at [facility] CBC W/AUTO [id number] 06:22:00* Test Item Value Reference Range Interpretation [...] REQUIRED (test code = MDIFF) YES WBC [id number] 06:22:00* Test Item Value Reference Range Interpretation [...] PLTMORPH) NORMAL LARGE PLTS SEEN BASIC METABOLIC [id number] 06:21:00* Test Item Value Reference Range Interpretation [...] code = CA) 8.0 mg/dL 8.0-10.5 N [id number] 06:21:00* Test Item Value Reference Range Interpretation Comments PHOSPHOROUS (test code = PHOS) 3.2 MG/DL 2.5-4.9 N [id number] 06:21:00* Test Item Value Reference Range Interpretation Comments MAGNESIUM (test code = MAG) 2.00 mg/dL 1.8-2.4 N CALCIUM [id number] 06:21:00* Test Item Value Reference Range Interpretation Comments CALCIUM IONIZED (test code = LAMONT) 1.21 MMOL/L 1.12-1.32 N CBC W/AUTO [id number] 06:18:00* Test Item Value Reference Range Interpretation [...] REQUIRED (test code = MDIFF) YES WBC [id number] 06:18:00* Test Item Value Reference Range Interpretation Comments ANISOCYTOSIS (test code = ANISO) PLATELET ESTIMATE (test code = PLTEST) THOUSAND ADEQUATE CBC W/AUTO [id number] 06:18:00* Test Item Value Reference Range Interpretation [...] REQUIRED (test code = MDIFF) YES WBC [id number] 06:18:00* Test Item Value Reference Range Interpretation Comments ANISOCYTOSIS (test code = ANISO) PLATELET ESTIMATE (test code = PLTEST) THOUSAND ADEQUATE BASIC METABOLIC [id number] 06:08:00* Test Item Value Reference Range Interpretation [...] CALCIUM (test code = CA) mg/dL 8.0-10.5 [id number] 06:08:00* Test Item Value Reference Range Interpretation Comments PHOSPHOROUS (test code = PHOS) MG/DL 2.5-4.9 [id number] 06:08:00* Test Item Value Reference Range Interpretation Comments MAGNESIUM (test code = MAG) mg/dL 1.8-2.4 CALCIUM [id number] 06:08:00* Test Item Value Reference Range Interpretation Comments CALCIUM IONIZED (test code = LAMONT) 1.21 MMOL/L 1.12-1.32 N CBC W/AUTO [id number] 06:01:00* Test Item Value Reference Range Interpretation [...] MANUAL DIFF REQUIRED (test code = MDIFF) [id number] 05:36:00* Test Item Value Reference Range Interpretation Comments GLUBED (test code = GLUBED) 151 MG/DL 70-110 H Performed by certified radial saw operator at [facility] [id number] 23:39:00* Test Item Value Reference Range Interpretation Comments GLUBED (test code = GLUBED) 78 MG/DL 70-110 N Performed by certified radial saw operator at [facility] [id number] 16:54:00* Test Item Value Reference Range Interpretation Comments GLUBED (test code = GLUBED) 101 MG/DL 70-110 N Performed by certified radial saw operator at [facility] Novel Coronavirus 16:04:00* Test Item Value Reference Range Interpretation Comments Novel Coronavirus 2019 Inhouse (test code = [id number]) Negative Negative Positive results are indicative of the presence qbZGUZ-TqH-6 RNA, clinical correlation with patient historyand other [...] for the identification of SARS-CoV-2 RNA usingthe Martinez M2000 System under the FDA Emergency UseAuthorization. The testing is performed by personneltrained in the procedures for the Affaredelgiorno M2000 moleculardiagnostic SARS-CoV-2 assay in vitro. Testing Criteria: [id number] 11:59:00* Test Item Value Reference Range Interpretation Comments GLUBED (test code = GLUBED) 80 MG/DL 70-110 N Performed by certified radial saw operator at [facility] CBC W/AUTO [id number] 08:09:00* Test Item Value Reference Range Interpretation [...] (test code = MDIFF) NO BASIC METABOLIC [id number] 07:00:00* Test Item Value Reference Range Interpretation [...] code = CA) 8.2 mg/dL 8.0-10.5 N [id number] 07:00:00* Test Item Value Reference Range Interpretation Comments PHOSPHOROUS (test code = PHOS) 3.0 MG/DL 2.5-4.9 N [id number] 07:00:00* Test Item Value Reference Range Interpretation Comments MAGNESIUM (test code = MAG) 1.90 mg/dL 1.8-2.4 N [id number] 07:00:00* Test Item Value Reference Range Interpretation Comments TROPONIN-I (test code = TROPI) < 0.015 ng/mL 0.000-0.045 N Negative: <= 0.045 Positive: >= 0.046 Correlation with serial results, other cardiac markers andclinical findings is necessary to determine the clinicalsignificance of this result. Results using different methodologies should not be comparedto one another as quantitative results may vary by method. LACTIC ACID 2ND [id number] 06:48:00* Test Item Value Reference Range Interpretation Comments LACTIC ACID 2ND REPEAT (test code = LACT2) 3.9 mmol/L 0.4-1.9 H [id number] 06:26:00* Test Item Value Reference Range Interpretation Comments GLUBED (test code = GLUBED) 124 MG/DL 70-110 H Performed by certified radial saw operator at [facility] [id number] 05:02:00* Test Item Value Reference Range Interpretation [...] V 2020-02-18 04:00:00 FAX: Callum Choi MD [phone] [place]: St: ADM FAX: Gregory Tinoco MD [phone] FAX: Jaspreet Perea MD [phone] Name: TAI GRANT [facility] : 1960 Age/S: 59/F [address] [place] [address] Unit #: [id number] Loc: [place], [place] [address] Phys: Gregory Thurston MD Acct: [id number] Dis Date: Status: ADM IN ONE #: [phone] Exam Date: 02/18/2020331 FAX #: [phone] Reason: AFTER RIGHT IJ CVL EXAMS: CPT CODE: [id number] XR CHEST 1 V 47648 EXAM: CR, XR chest one view: 02/18/2020, [...] MD Technologist: RT Sha(R) Trnscrd Date/Time/By: 02/18/2020 (399) : By: [email or web address] Orig Print D/T: S: 02/18/2020 (0403) PAGE 1 Signed Report LACTIC ACID [id number] 03:54:00* Test Item Value Reference Range Interpretation Comments LACTIC ACID REPEAT (test code = LACTR) 4.2 mmol/l 0.4-1.9 HH - CT CHEST W/O [id number] 02:56:00 Name: TAI GRANT [facility] : 1960 Age/S: 59 / F [address] [facility] Unit #: [id number] Loc: [place] [address] Phys: Gregory Thurston MD Acct: [id number] Dis Date: Status: ADM IN PHONE #: [phone] Exam Date: 02/18/2020234 FAX #: [phone] Reason: acute sepsis, altered mental status EXAMS: CPT CODE: [id number] CT CHEST W/O CONTRAST 83903 EXAM: CT, CT CHEST W/O CONTRAST: 02/18/2020, [...] Signed Report (CONTINUED) N jim: TAI GRANT [facility] : 0 1960 Age/S: 59 / F [address] [place] [address] Blvd Unit #: [id number] Loc: [place] [address] Phys: JanesDavid kelley aurora LEE Acct: [id number] Dis D ate: Status: ADM IN PHONE #: Exam Date: 02/18/2020234 FAX #: [phone] Reason: acute sepsis, altered mental status EXAMS: CPT CODE: [id number] CT CHEST W/O CON TRAST 83828 <Continued> LIVER: Enlarged, measures 19.4 cm cephalic [...] 2 Signed Report (CONTINUED) Name: GRANTTAIHUGO BRITO [facility] : 1960 Age/S: 59 / F [address] [facility] Unit #: [id number] Loc: [place] [address] Phys: Gregory Thurston MD Acct: [id number] Dis Date: Status: ADM IN PHONE #: [phone] Exam Date: 02/18/2020234 FAX #: [phone] Reason: acute sepsis, altered mental status EXAMS: CPT CODE: [id number] CT CHEST W/O CONTRAST 88475 < Continued> SL: FANY at 0256 Reported and signed by: German Hughes M.D. CC: Gregory Thurston MD; Jaspreet Jerez MD Technologist:Arthur Bright, RT(R)(CT)(MR) CTDI: DLP: Trnscb Date/Time: 02/18/2020 (255) [email or web address] Orig Print D/T: S: 02/18/2020 (258) PAGE 3 Signed Report - CT ABD PELVIS W/O [id number] 02:56:00 Name: TAI GRANT [facility] : 1960 Age/S: 59 / F [address] [place] [address] Unit #: [id number] Loc: [place] [address] Phys: Gregory Thurston MD Acct: [id number] Dis Date: Status: ADM IN PHONE #: [phone] Exam Date: 02/18/2020234 FAX #: [phone] Reason: acute sepsis, altered mental status EXAMS: CPT CODE: [id number] CT ABD PELVIS W/O CONT 42202 EXAM: CT, CT CHEST W/O CONTRAST: 02/18/2020, [...] Signed Report (CONTINUED) N jim: TAI GRANT [facility] : 0 1960 Age/S: 59 / F [address] [place] [address] Unit #: [id number] Loc: [place] [address] Phys: David Thurston MD Acct: [id number] Dis D ate: Status: ADM IN PHONE #: Exam Date: 02/18/2020234 FAX #: [phone] Reason: acute sepsis, altered mental status EXAMS: CPT CODE: [id number] CT ABD PELVIS W/O CONT 55703 <Continued> LIVER: Enlarged, measures 19.4 cm cephalic [...] 2 Signed Report (CONTINUED) Name: TAI GRANT [facility] : 1960 Age/S: 59 / F [address] Unit #: [id number] Loc: [place] [address] Phys: Gregory Thurston MD Acct: [id number] Dis Date: Status: ADM IN PHONE #: [phone] Exam Date: 02/18/2020 0235 FAX #: [phone] Reason: acute sepsis, altered mental status EXAMS: CPT CODE: [id number] CT ABD PELVIS W/O CONT 12896 < Continued> SL: FANY at 0256 Reported and signed by: German Hughes M.D. CC: Gregory Thurston MD; Jaspreet Jerez MD Technologist:RT Samina(R)(CT)(MR) CTDI: DLP: Trnscb Date/Time: 02/18/2020 (025) [email or web address] Orig Print D/T: S: 02/18/2020 (025) PAGE 3 Signed Report PROCALCITONIN (PCT)2020-02-18 02:46:00* [...] ng/mL are obtained. - CT HEAD/BRAIN W/O [id number] 02:34:00 Name: TAI GRANT [facility] : 1960 Age/S: 59 / F [address] [place] [address] Unit #: [id number] Loc: [place] [address] Phys: Gregory Thurston MD Acct: [id number] Dis Date: Status: REG ER PHONE #: [phone] Exam Date: 02/18/2020 023 FAX #: [phone] Reason: acute sepsis, altered mental status EXAMS: CPT CODE: [id number] CT HEAD/BRAIN W/O CONT 20668 EXAM: CT, CT HEAD/BRAIN W/O CONTRAST: 02/18/2020, [...] Signed Report (CONTIN UED) Name: TAI GRANT [facility] : 1960 Age/S: 59 / F [address] [place] [address] Unit #: [id number] Loc: [place] [address] Phys: Gregory Almaraz MD Acct: [id number] Dis Date: Status: REG ER PHONE #: [phone] Exam Date: 02/18/2020 0235 FAX #: Reason: acute sepsis, altered mental status EXAMS: CPT CODE: [id number] CT HEAD/ BRAIN W/O CONT 50538 <Continued> SL: FANY at 0234 Reported and signed by: German Hughes M.D. CC: Gregory Thurston MD; Jaspreet Jerez MD Technologist:Arthur Bright, RT(R)(CT)(MR) CTDI: DLP: Trnscb Date/Time: 02/18/2020 (0234) [email or web address] Orig Print D/T: S: 02/18/2020 (0239) PAGE 2 Signed Report CBC W/AUTO [id number] 02:20:00* Test Item Value Reference Range Interpretation [...] REQUIRED (test code = MDIFF) NO PLT [id number] 02:20:00* Test Item Value Reference Range Interpretation Comments PLATELET ESTIMATE (test code = PLTEST) 56-70 THOUSAND ADEQUATE PLATELET MORPHOLOGY (test code = PLTMORPH) NORMAL URINALYSIS [id number] 02:15:00* Test Item Value Reference Range Interpretation [...] (test code = RBCU) RBC/HPF 0-3 URINALYSIS [id number] 02:15:00* Test Item Value Reference Range Interpretation [...] (test code = RBCU) RBC/HPF 0-3 URINALYSIS [id number] 02:15:00* Test Item Value Reference Range Interpretation [...] = MUCU) 1+ /LPF NONE SEEN Coronavirus 2018 nCoV [id number] 02:15:00* Test Item Value Reference Range Interpretation Comments Coronavirus 2019 nCoV Bedside (test code = [id number]) Negative Negative Is patient requiring admission or transfer? YIndication for rapid COVID-19 testi ng: High Clinical SuspicionBASIC METABOLIC [id number] 02:08:00* Test Item Value Reference Range Interpretation [...] CA) 8.3 mg/dL 8.0-10.5 N HEPATIC FUNCTION [id number] 02:08:00* Test Item Value Reference Range Interpretation [...] code = ALKP) 105 IUnit/L 20-125 N [id number] 02:08:00* Test Item Value Reference Range Interpretation Comments LIPASE (test code = LIP) 80 IUnit/L 73-393 N TSH REFLEX TO [id number] 02:08:00* Test Item Value Reference Range Interpretation Comments TSH REFLEX TO FT4 (test code = TSHREFLEX) 2.34 IU/mL 0.42-5.47 N [id number] 02:08:00* Test Item Value Reference Range Interpretation Comments TROPONIN-I (test code = TROPI) < 0.015 ng/mL 0.000-0.045 N Negative: <= 0.045 Positive: >= 0.046 Correlation with serial results, other cardiac markers andclinical findings is necessary to determine the clinicalsignificance of this result. Results using different methodologies should not be comparedto one another as quantitative results may vary by method. BASIC METABOLIC [id number] 02:04:00* Test Item Value Reference Range Interpretation [...] CA) 8.3 mg/dL 8.0-10.5 N HEPATIC FUNCTION [id number] 02:04:00* Test Item Value Reference Range Interpretation [...] code = ALKP) 105 IUnit/L 20-125 N [id number] 02:04:00* Test Item Value Reference Range Interpretation Comments LIPASE (test code = LIP) 80 IUnit/L 73-393 N TSH REFLEX TO [id number] 02:04:00* Test Item Value Reference Range Interpretation Comments TSH REFLEX TO FT4 (test code = TSHREFLEX) IU/mL 0.42-5.47 [id number] 02:04:00* Test Item Value Reference Range Interpretation Comments TROPONIN-I (test code = TROPI) < 0.015 ng/mL 0.000-0.045 N Negative: <= 0.045 Positive: >= 0.046 Correlation with serial results, other cardiac markers andclinical findings is necessary to determine the clinicalsignificance of this result. Results using different methodologies should not be comparedto one another as quantitative results may vary by method. LACTIC [id number] 01:56:00* Test Item Value Reference Range Interpretation Comments LACTIC ACID (test code = LACT) 3.6 mmol/L 0.4-1.9 H - XR CHEST 1 [id number] 01:48:00 FAX: Gregory Tinoco MD [phone] [place]: St: REG FAX: Jaspreet Perea MD [phone] Name: TAI GRANT [facility] : 1960 Age/S: 59/F [address] [place] [address] Blvd Unit #: [id number] Loc: [place] [address] Phys: Gregory Thurston MD Acct: [id number] Dis Date: Status: REG ER PHONE #: [phone] Exam Date: 02/18/2020 0135 FAX #: [phone] Reason: Chest Pain EXAMS: CPT CODE: [id number] XR CHEST 1 V 61514 EXAM: CR, XR chest one view: 02/18/2020, [...] Thurston MD; Jaspreet Jerez MD Technologist: Zenon Crane, RT(R) Trnscrd Date/Time/By: 02/18/2020 (0148) : By: [email or web address] Orig Print D/T: S: 02/18/2020 (0151) PAGE 1 Signed Report CBC W/AUTO [id number] 01:44:00* Test Item Value Reference Range Interpretation [...] REQUIRED (test code = MDIFF) NO PLT [id number] 01:44:00* Test Item Value Reference Range Interpretation Comments PLATELET ESTIMATE (test code = PLTEST) THOUSAND ADEQUATE CBC W/AUTO [id number] 01:44:00* Test Item Value Reference Range Interpretation [...] REQUIRED (test code = MDIFF) NO PLT [id number] 01:44:00* Test Item Value Reference Range Interpretation Comments PLATELET ESTIMATE (test code = PLTEST) THOUSAND ADEQUATE [id number] 21:53:00* Test Item Value Reference Range Interpretation Comments GLUBED (test code = GLUBED) 71 MG/DL 70-110 N Performed by certified radial saw operator at [facility] [id number] 21:28:00* Test Item Value Reference Range Interpretation Comments GLUBED (test code = GLUBED) 60 MG/DL 70-110 L Performed by certified radial saw operator at [facility] [id number] 20:42:00* Test Item Value Reference Range Interpretation Comments GLUBED (test code = GLUBED) 143 MG/DL 70-110 H Performed by certified radial saw operator at [facility] [id number] 16:29:00* Test Item Value Reference Range Interpretation Comments GLUBED (test code = GLUBED) 89 MG/DL 70-110 N Performed by certified radial saw operator at [facility] [id number] 16:29:00* Test Item Value Reference Range Interpretation Comments GLUBED (test code = GLUBED) 67 MG/DL 70-110 L Performed by certified radial saw operator at [facility] [id number] 08:02:00* Test Item Value Reference Range Interpretation Comments GLUBED (test code = GLUBED) 95 MG/DL 70-110 N Performed by certified radial saw operator at [facility] [id number] 07:28:00* Test Item Value Reference Range Interpretation Comments GLUBED (test code = GLUBED) 62 MG/DL 70-110 L Performed by certified radial saw operator at [facility] [id number] 20:29:00* Test Item Value Reference Range Interpretation Comments GLUBED (test code = GLUBED) 85 MG/DL 70-110 N Performed by certified radial saw operator at [facility] CBC W/AUTO [id number] 13:49:00* Test Item Value Reference Range Interpretation [...] (test code = MDIFF) NO BASIC METABOLIC [id number] 13:39:00* Test Item Value Reference Range Interpretation [...] code = CA) 7.8 mg/dL 8.0-10.5 L [id number] 13:14:00* Test Item Value Reference Range Interpretation Comments GLUBED (test code = GLUBED) 156 MG/DL 70-110 H Performed by certified radial saw operator at [facility] [id number] 08:32:00* Test Item Value Reference Range Interpretation Comments GLUBED (test code = GLUBED) 56 MG/DL 70-110 L Performed by certified radial saw operator at [facility] [id number] 08:07:00* Test Item Value Reference Range Interpretation Comments GLUBED (test code = GLUBED) 79 MG/DL 70-110 N Performed by certified radial saw operator at [facility] [id number] 20:53:00* Test Item Value Reference Range Interpretation Comments GLUBED (test code = GLUBED) 110 MG/DL 70-110 N Performed by certified radial saw operator at [facility] [id number] 17:16:00* Test Item Value Reference Range Interpretation Comments GLUBED (test code = GLUBED) 173 MG/DL 70-110 H Performed by certified radial saw operator at [facility] BASIC METABOLIC [id number] 14:27:00* Test Item Value Reference Range Interpretation [...] CA) 8.1 mg/dL 8.0-10.5 N CBC W/AUTO [id number] 12:11:00* Test Item Value Reference Range Interpretation [...] NO - SP DX BONE MARROW BX [id number] 12:09:00 FAX: Jonathan Hendricks [phone] [place]: St: ADM FAX: Fritz Tsang MD [phone] FAX: Jaspreet Perea MD [phone] Name: TAI GRANT [facility] : 1960 Age/S: 59/F [address] [place] [address] Unit #: [id number] Loc: G.[address] [place] [address] Phys: Fritz Webb MD Acct: [id number] Dis Date: Status: ADM IN ONE #: [phone] Exam Date: 02/13/2020 1210 FAX #: [phone] 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 FINDINGS: Automotive Specialty Technician image shows biopsy needle p rojecting over the left iliac crest. IMPRESSION: Status post fluoroscopic guided bone marrow biopsy. PAGE 1 Signed Report (CONTINUED) FAX: Jonathan Hendricks [phone] [place]: St: ADM FAX: Fritz Tsang MD FAX: Jaspreet Perea MD [phone] Name: TAI GRANT Wilfred TRANG [facility] : 1960 Age/S: 59 /F [address] [place] [address] Unit #: [id number] Loc: G[address] [place] [address] Phys: Fritz Webb MD Acct: [id number] Dis Date: St atus: ADM IN PHONE #: [phone] Exam Date : 02/13/2020 1210 FAX #: [phone] Reason: panc ytopenia- MDS vs acute leukemia EXAMS: CPT CODE: [id number] SP [place]ONE [place]ARROW [place] ASP [id number] <Continued> at 1209 Reported and signed by: Ajay Hollins M.D. CC: Jonathan Vogel MD; Fritz Webb MD; Jaspreet Jerez MD Technologist: Saravanan Villeda, RT(R); Annabella Chavez RT(R)(CT) Trnscrd Date/Time/By: 02/15/2020 (1208) : By: [email or web address] Orig Print D/T: S: 02/15/2020 (3983) PAGE 2 Signed Report [id number] 11:15:00* Test Item Value Reference Range Interpretation Comments GLUBED (test code = GLUBED) 131 MG/DL 70-110 H Performed by certified radial saw operator at [facility] [id number] 09:44:00* Test Item Value Reference Range Interpretation Comments GLUBED (test code = GLUBED) 58 MG/DL 70-110 L Performed by certified radial saw operator at [facility] [id number] 08:09:00* Test Item Value Reference Range Interpretation Comments GLUBED (test code = GLUBED) 91 MG/DL 70-110 N Performed by certified radial saw operator at [facility] [id number] 21:25:00* Test Item Value Reference Range Interpretation Comments GLUBED (test code = GLUBED) 199 MG/DL 70-110 H Performed by certified radial saw operator at [facility] [id number] 17:41:00* Test Item Value Reference Range Interpretation Comments GLUBED (test code = GLUBED) 167 MG/DL 70-110 H Performed by certified radial saw operator at [facility] CBC W/AUTO [id number] 11:23:00* Test Item Value Reference Range Interpretation [...] REQUIRED (test code = MDIFF) YES WBC [id number] 11:23:00* Test Item Value Reference Range Interpretation [...] = PLTMORPH) LARGE PLATELETS FEW CBC W/AUTO [id number] 11:10:00* Test Item Value Reference Range Interpretation [...] REQUIRED (test code = MDIFF) YES WBC [id number] 11:10:00* Test Item Value Reference Range Interpretation Comments ANISOCYTOSIS (test code = ANISO) PLATELET ESTIMATE (test code = PLTEST) THOUSAND ADEQUATE CBC W/AUTO [id number] 11:10:00* Test Item Value Reference Range Interpretation [...] REQUIRED (test code = MDIFF) YES WBC [id number] 11:10:00* Test Item Value Reference Range Interpretation Comments ANISOCYTOSIS (test code = ANISO) PLATELET ESTIMATE (test code = PLTEST) THOUSAND ADEQUATE CBC W/AUTO [id number] 08:33:00* Test Item Value Reference Range Interpretation [...] MANUAL DIFF REQUIRED (test code = MDIFF) [id number] 08:10:00* Test Item Value Reference Range Interpretation Comments GLUBED (test code = GLUBED) 77 MG/DL 70-110 N Performed by certified radial saw operator at [facility] [id number] 08:10:00* Test Item Value Reference Range Interpretation Comments GLUBED (test code = GLUBED) 46 MG/DL 70-110 L Performed by certified radial saw operator at [facility] BASIC METABOLIC [id number] 07:42:00* Test Item Value Reference Range Interpretation [...] = CA) 8.6 mg/dL 8.0-10.5 N PROTHROMBIN [id number] 06:53:00* Test Item Value Reference Range Interpretation [...] Infarction (to prevent recurrent infarct). THROMBOPLASTIN TIME [id number] 06:53:00* Test Item Value Reference Range Interpretation Comments THROMBOPLASTIN TIME PARTIAL (test code = PTT) 46.9 Seconds 25.0-39. 5 H Therapeutic Range: 50.4 - 88.3 Seconds Effective 02/07/2019 [id number] 20:24:00* Test Item Value Reference Range Interpretation Comments GLUBED (test code = GLUBED) 102 MG/DL 70-110 N Performed by certified radial saw operator at [facility] [id number] 16:00:00* Test Item Value Reference Range Interpretation Comments GLUBED (test code = GLUBED) 77 MG/DL 70-110 N Performed by certified radial saw operator at [facility] ACUTE HEPATITIS [id number] 13:08:00* Test Item Value Reference Range Interpretation [...] REACTIVE INDEX NON REACT. AB HEPATITIS B [id number] 13:08:00* Test Item Value Reference Range Interpretation Comments AB HEPATITIS B SURFACE (test code = HBSAB) 12.6 mIU/mL Immunity>9. 9 Verified by repeat analysis Status of Immunity Anti-HBs Level Inconsistent with Immunity 0.0 - 9.9Consistent with Immunity >9.9Performed At: [facility] [place], [place] [id number] Kenny Queen MD Ph:[phone] CBC W/AUTO [id number] 12:00:00* Test Item Value Reference Range Interpretation [...] REQUIRED (test code = MDIFF) YES WBC [id number] 12:00:00* Test Item Value Reference Range Interpretation [...] PLATELETS FEW LARGE PLTS SEEN CBC W/AUTO [id number] 11:46:00* Test Item Value Reference Range Interpretation [...] REQUIRED (test code = MDIFF) YES WBC [id number] 11:46:00* Test Item Value Reference Range Interpretation Comments ANISOCYTOSIS (test code = ANISO) PLATELET ESTIMATE (test code = PLTEST) THOUSAND ADEQUATE CBC W/AUTO [id number] 11:46:00* Test Item Value Reference Range Interpretation [...] REQUIRED (test code = MDIFF) YES WBC [id number] 11:46:00* Test Item Value Reference Range Interpretation Comments ANISOCYTOSIS (test code = ANISO) PLATELET ESTIMATE (test code = PLTEST) THOUSAND ADEQUATE BASIC METABOLIC [id number] 08:12:00* Test Item Value Reference Range Interpretation [...] CA) 8.3 mg/dL 8.0-10.5 N CBC W/AUTO [id number] 07:59:00* Test Item Value Reference Range Interpretation [...] MANUAL DIFF REQUIRED (test code = MDIFF) [id number] 07:35:00* Test Item Value Reference Range Interpretation Comments GLUBED (test code = GLUBED) 61 MG/DL 70-110 L Performed by certified radial saw operator at [facility] [id number] 20:40:00* Test Item Value Reference Range Interpretation Comments GLUBED (test code = GLUBED) 74 MG/DL 70-110 N Performed by certified radial saw operator at [facility] [id number] 17:04:00* Test Item Value Reference Range Interpretation Comments GLUBED (test code = GLUBED) 123 MG/DL 70-110 H Performed by certified radial saw operator at [facility] [id number] 16:38:00* Test Item Value Reference Range Interpretation Comments GLUBED (test code = GLUBED) 93 MG/DL 70-110 N Performed by certified radial saw operator at [facility] CBC W/AUTO [id number] 10:38:00* Test Item Value Reference Range Interpretation [...] REQUIRED (test code = MDIFF) NO PLT [id number] 10:38:00* Test Item Value Reference Range Interpretation Comments PLATELET ESTIMATE (test code = PLTEST) 104-130 THOUSAND ADEQUATE PLATELET MORPHOLOGY (test code = PLTMORPH) LARGE PLATELETS LARGE PLTS SEEN [id number] 09:04:00* Test Item Value Reference Range Interpretation Comments GLUBED (test code = GLUBED) 149 MG/DL 70-110 H Performed by certified radial saw operator at [facility] CBC W/AUTO [id number] 07:51:00* Test Item Value Reference Range Interpretation [...] REQUIRED (test code = MDIFF) NO PLT [id number] 07:51:00* Test Item Value Reference Range Interpretation Comments PLATELET ESTIMATE (test code = PLTEST) THOUSAND ADEQUATE CBC W/AUTO [id number] 07:51:00* Test Item Value Reference Range Interpretation [...] REQUIRED (test code = MDIFF) NO PLT [id number] 07:51:00* Test Item Value Reference Range Interpretation Comments PLATELET ESTIMATE (test code = PLTEST) THOUSAND ADEQUATE [id number] 07:50:00* Test Item Value Reference Range Interpretation Comments GLUBED (test code = GLUBED) 100 MG/DL 70-110 N Performed by certified radial saw operator at [facility] [id number] 07:50:00* Test Item Value Reference Range Interpretation Comments GLUBED (test code = GLUBED) 125 MG/DL 70-110 H Performed by certified radial saw operator at [facility] [id number] 07:50:00* Test Item Value Reference Range Interpretation Comments GLUBED (test code = GLUBED) 46 MG/DL 70-110 L Performed by certified radial saw operator at [facility] BASIC METABOLIC [id number] 07:32:00* Test Item Value Reference Range Interpretation [...] code = CA) 8.4 mg/dL 8.0-10.5 N [id number] 07:32:00* Test Item Value Reference Range Interpretation Comments PHOSPHOROUS (test code = PHOS) 5.1 MG/DL 2.5-4.9 H [id number] 22:01:00* Test Item Value Reference Range Interpretation Comments GLUBED (test code = GLUBED) 85 MG/DL 70-110 N Performed by certified radial saw operator at [facility] [id number] 22:01:00* Test Item Value Reference Range Interpretation Comments GLUBED (test code = GLUBED) 107 MG/DL 70-110 N Performed by certified radial saw operator at [facility] [id number] 20:16:00* Test Item Value Reference Range Interpretation Comments GLUBED (test code = GLUBED) 72 MG/DL 70-110 N Performed by certified radial saw operator at [facility] [id number] 18:37:00* Test Item Value Reference Range Interpretation Comments GLUBED (test code = GLUBED) 186 MG/DL 70-110 H Performed by certified radial saw operator at [facility] [id number] 12:03:00* Test Item Value Reference Range Interpretation Comments GLUBED (test code = GLUBED) 98 MG/DL 70-110 N Performed by certified radial saw operator at [facility] AB HIV 1 10:06:00* Test Item Value Reference Range Interpretation Comments AB HIV 1 2 (test code = BAA58SK) NONREACTIVE INDEX NONREACTIVE CBC W/AUTO [id number] 10:03:00* Test Item Value Reference Range Interpretation [...] REVIEWED, CONSISTENT WITH AUTO DIFF. BASIC METABOLIC [id number] 08:35:00* Test Item Value Reference Range Interpretation [...] CA) 8.0 mg/dL 8.0-10.5 N CBC W/AUTO [id number] 08:01:00* Test Item Value Reference Range Interpretation [...] (test code = MDIFF) - US ABDOMEN [id number] 17:08:00 Name: TAI GRANT [facility] : 1960 Age/S: 59 / F [address] [place] [address] Unit #: [id number] Loc: [place] [address] Phys: Fritz Webb MD Acct: [id number] Dis Date: Status: ADM IN PHONE #: [phone] Exam Date: 02/10/2020 [facility] FAX #: [phone] Reason: pancytopenia- eval liver and spleen EXAMS: CPT CODE: [id number] US ABDOMEN COMPLETE 56018 PROCEDURE: Abdominal Ultrasound. Clinical Indication: Pancytopenia, anemia, [...] PAGE 1 Signed Report (CONTINUED) Name: TAI GRANTSADE [facility] : 1960 Age/S: 59 / F [address] [place] [address] Bl Unit #: [id number] Loc: [place] [address] Phys: Fritz Webb MD Acct: [id number] Dis Date: Status: ADM IN PHONE #: [phone] Exam D ate: 02/10/2020 1455 FAX #: [phone] Reason: pancy topenia- eval liver and spleen EXAMS: CPT CODE: [id number] US ABDOMEN COMPLETE 02112 <Continued> 3. Findings consistent with medical renal disease. 4. Right renal simple cysts. SL: OCO-H at 1708 Reported and signed by: Ashish Cisneros M.D. CC: Fritz Webb MD; Jaspreet Jerez MD; Ganesh Vizcarra MD Technologist: Crsitine Salazar RDMS(AB)(OB) Trnscb Date/Time: 02/10/2020 (1708) t.TDO Orig Print D/T: S: 02/10/2020 (1719) Probe: PAGE 2 Signed Report - XR KNEE 1 OR 2 V [id number] 15:55:00 FAX: Jaspreet Perea MD [phone] [place]: St: ADM FAX: Ganesh Escobar MD [phone] Name: TAI GRANT [facility] : 1960 Age/S: 59/F [address] [place] [address] Unit #: [id number] Loc: [address] [place] [address] Phys: Ganesh Vizcarra MD Acct: [id number] Dis Date: Status: ADM IN PHONE #: [phone] Exam Date: 02/10/2020 1541 FAX #: [phone] Reason: FALLS WITH SHOULDER/BACK/KNEE PAINS EXAMS: CPT CODE: [id number] XR KNEE 1 OR 2 [place] [address] Procedure: Bilateral knee radiographs. Clinical Indication: Bilateral knee pain post fall. Comparison: None. FINDINGS: Radiographs of the knees, 2 views each, show normal alignment without fractures or dislocations. There are surgical clips medial to the left knee. IMPRESSION: 1. No acute osseous abnormality observed. SL: OCO-H at 6321 Reported and signed by: Ashish Cisneros M.D. CC: Jaspreet Jerez MD; Ganesh Vizcarra MD Technologist: GLENN Bustos RT(R) Trnkishor Date/Time/By: 02/10/2020 (5664) : By: BobTDO Orig Print D/T: S: 02/10/2020 (9775) PAGE 1 Signed Report - XR SHOULDER 2 + V BI 2020-02-10 15:54:00 FAX: Jaspreet Perea MD [phone] [place]: St: ADM FAX: Ganesh Escobar MD [phone] Name: TAI GRANT [facility] : 1960 Age/S: 59/F [address] [place] [address] Unit #: [id number] Loc: [address] [place] [address] Phys: Ganesh Vizcarra MD Acct: [id number] Dis Date: Status: ADM IN PHONE #: [phone] Exam Date: 02/10/2020 1541 FAX #: [phone] Reason: FALLS WITH SHOULDER/BACK/KNEE PAINS EXAMS: CPT CODE: [id number] XR SHOULDER 2 + [place] [address] Procedure: Bilateral shoulder radiographs. Clinical Indication: Bilateral shoulder pain post fall. Comparison: None. FINDINGS: Radiographs of the shoulders, 3 views each, show normal alignment without fractures or dislocations. There are no radio-opaque foreign bodies. IMPRESSION: 1. No acute osseous abnormality observed. SL: OCO-H at 7145 Reported and signed by: Ashish Cisneros M.D. CC: Jaspreet Jerez MD; Ganesh Vizcarra MD Technologist: GLENN Bustos RT(R) Trnscrd Date/Time/By: 02/10/2020 (4516) : By: BobTDO Orig Print D/T: S: 02/10/2020 (7915) PAGE 1 Signed Report - XR L-SPINE 2/3 VIEWS 2020-02-10 15:52:00 FAX: Jaspreet Perea MD [phone] [place]: St: [facility] FAX: Ganesh Escobar MD [phone] Name: TAI GRANT [facility] : 1960 Age/S: 59/F [address] [place] [address] Unit #: [id number] Loc: [address] [place] [address] Phys: Ganesh Vizcarra MD Acct: [id number] Dis Date: Status: ADM IN PHONE #: [phone] Exam Date: 02/10/2020 1541 FAX #: [phone] Reason: FALLS WITH SHOULDER/BACK/KNEE PAINS EXAMS: CPT CODE: [id number] XR L-SPINE 2/3 VIEWS 50729 Procedure: Lumbar Spine Radiographs. Clinical Indication: Back [...] N: 1. Degenerative change. SL: OCO-H at 1552 Reported and signed by: Ashish Cisneros M.D. CC: Jaspreet Jerez MD; Tru Vizcarra MD Technologist: GLENN Bustos RT(R) Trnscrd Date/Time/By: 02/10/2020 (9851) : By: BobTDO Orig Print D/T: S: 02/10/2020 (9185) PAGE 1 Signed Report [id number] 12:38:00* Test Item Value Reference Range Interpretation Comments GLUBED (test code = GLUBED) 89 MG/DL 70-110 N Performed by certified radial saw operator at [facility] [id number] 12:38:00* Test Item Value Reference Range Interpretation Comments GLUBED (test code = GLUBED) 63 MG/DL 70-110 L Performed by certified radial saw operator at [facility] [id number] 11:18:00* Test Item Value Reference Range Interpretation Comments GLUBED (test code = GLUBED) 83 MG/DL 70-110 N Performed by certified radial saw operator at [facility] CBC W/AUTO [id number] 10:42:00* Test Item Value Reference Range Interpretation [...] REQUIRED (test code = MDIFF) YES WBC [id number] 10:42:00* Test Item Value Reference Range Interpretation [...] = PLTEST) 92-115 THOUSAND ADEQUATE CBC W/AUTO [id number] 10:26:00* Test Item Value Reference Range Interpretation [...] REQUIRED (test code = MDIFF) YES WBC [id number] 10:26:00* Test Item Value Reference Range Interpretation Comments ANISOCYTOSIS (test code = ANISO) PLATELET ESTIMATE (test code = PLTEST) THOUSAND ADEQUATE CBC W/AUTO [id number] 10:26:00* Test Item Value Reference Range Interpretation [...] REQUIRED (test code = MDIFF) YES WBC [id number] 10:26:00* Test Item Value Reference Range Interpretation Comments ANISOCYTOSIS (test code = ANISO) PLATELET ESTIMATE (test code = PLTEST) THOUSAND ADEQUATE ACUTE HEPATITIS [id number] 09:26:00* Test Item Value Reference Range Interpretation [...] REACTIVE INDEX NON REACT. AB HEPATITIS B [id number] 09:26:00* Test Item Value Reference Range Interpretation Comments AB HEPATITIS B SURFACE (test code = HBSAB) ACUTE HEPATITIS [id number] 09:00:00* Test Item Value Reference Range Interpretation Comments AB HEPATITIS A IGM (test code = HAVMAB) INDEX NON REACT. AG HEPATITIS B SURFACE (test code = HBSAG) NON REACTIVE INDEX NonRe active AB HEPATITIS B CORE IGM (test code = HBCMAB) INDEX NON REACT . AB HEPATITIS C (test code = HCVAB) INDEX NON REACT. AB HEPATITIS B [id number] 09:00:00* Test Item Value Reference Range Interpretation Comments AB HEPATITIS B SURFACE (test code = HBSAB) CBC W/AUTO [id number] 08:22:00* Test Item Value Reference Range Interpretation [...] REQUIRED (test code = MDIFF) BASIC METABOLIC [id number] 07:47:00* Test Item Value Reference Range Interpretation [...] = LDL) 23 mg/dL 0-100 N <100 [id number] NEAR OPTIMAL/ABOVE [id number] [id number] HIGH>WL=853 VERY HIGH*Guidelines provided by the National Cholesterol EducationProgram Adult Treatment Panel III [id number] 00:34:00* Test Item Value Reference Range Interpretation Comments GLUBED (test code = GLUBED) 144 MG/DL 70-110 H Performed by certified radial saw operator at [facility] - XR FOOT 3 + V [id number] 19:51:00 FAX: Edis Renee DPM [phone] [place]: St: ADM FAX: Jaspreet Perea MD [phone] FAX: Ganesh Escobar MD [phone] Name: TAI GRANT [facility] : 1960 Age/S: 59/F [address] [place] [address] Blvd Unit #: [id number] Loc: [address] [place] [address] Phys: Edis Leonard DPM Acct: [id number] Dis Date: Status: ADM IN PH ONE #: [phone] Exam Date: 02/09/2020 1830 FAX #: [phone] Reason: contusion EXAMS: CPT CODE: [id number] XR FOOT 3 + [place] [address] Three-view jigna ateral feet. INDICATION: Bilateral foot [...] present. IMPRESSION: No acute bony findings. SL: SG-H at 1950 Reported and signed by: Jacques Bailey M.D. CC: Edis Leonard DPM; Jaspreet Jerez MD; Ganesh Vizcarra MD Technologist: Barby Osborne RT(R)(M) Trnscrd Date/Time/By: 02/09/2020 (1950) : By: [email or web address] Orig Print D/T: S: 02/09/2020 (1953) PAGE 1 Signed Report [id number] 18:18:00 * Test Item Value Reference Range Interpretation Comments GLUBED (test code = GLUBED) 85 MG/DL 70-110 N Performed by certified radial saw operator at [facility] TOTAL IRON BINDING [id number] 15:33:00* Test Item Value Reference Range Interpretation Comments SERUM IRON (test code = IRON) 50 mcg/dL 35-150 N TOTAL IRON BINDING CAPACITY (test code = TIBC) 222 mcg/dL 260-445 L UIBC (test code = UIBC) 172 mcg/dL IRON SATURATION (test code = FESAT) 22.5 % 14-34 N VITAMIN [id number] 15:33:00* Test Item Value Reference Range Interpretation Comments VITAMIN B12 (test code = VITB12) 611 pg/mL 193-986 N FOLIC [id number] 15:33:00* Test Item Value Reference Range Interpretation Comments FOLIC ACID (test code = FOL) 3.5 ng/mL 3.1-17.5 N TSH REFLEX TO [id number] 15:33:00* Test Item Value Reference Range Interpretation Comments TSH REFLEX TO FT4 (test code = TSHREFLEX) 3.15 IU/mL 0.42-5.47 N [id number] 15:33:00* Test Item Value Reference Range Interpretation Comments FERRITIN (test code = GIO) 1129.9 ng/mL 11.0-306.8 H HGBA1C%2020-02-09 14:56:00* Test Item Value Reference Range Interpretation Comments HGBA1C% (test code = HGBA1C%) < 3.5 %A1C 4.8-6.0 L CBC W/AUTO [id number] 13:28:00* Test Item Value Reference Range Interpretation [...] REQUIRED (test code = MDIFF) YES WBC [id number] 13:28:00* Test Item Value Reference Range Interpretation [...] LARGE PLATELETS LARGE PLTS SEEN CBC W/AUTO [id number] 13:21:00* Test Item Value Reference Range Interpretation [...] REQUIRED (test code = MDIFF) YES WBC [id number] 13:21:00* Test Item Value Reference Range Interpretation Comments ANISOCYTOSIS (test code = ANISO) PLATELET ESTIMATE (test code = PLTEST) THOUSAND ADEQUATE CBC W/AUTO [id number] 13:21:00* Test Item Value Reference Range Interpretation [...] REQUIRED (test code = MDIFF) YES WBC [id number] 13:21:00* Test Item Value Reference Range Interpretation Comments ANISOCYTOSIS (test code = ANISO) PLATELET ESTIMATE (test code = PLTEST) THOUSAND ADEQUATE BASIC METABOLIC [id number] 12:10:00* Test Item Value Reference Range Interpretation [...] CA) 8.5 mg/dL 8.0-10.5 N CBC W/AUTO [id number] 11:54:00* Test Item Value Reference Range Interpretation [...] code = MDIFF) - XR CHEST 1 [id number] 11:40:00 FAX: Lacy Thompson NP [phone] [place]: St: PRE FAX: Jaspreet Perea MD [phone] Name: TAI GRANT [facility] : 1960 Age/S: 59/F [address] [place] [address] Unit #: [id number] Loc: [address] [address] Phys: Lacy Thompson NP Acct: [id number] Dis Date: Status: PRE ER PHONE #: [phone] Exam Date: 02/09/2020 1128 FAX #: [phone] Reason: back pain EXAMS: CPT CODE: [id number] XR CHEST 1 V 83492 Study: - XR CHEST 1 V 02/09/2020 11:19 AM Patient Name: TAI GRANT MR: [id number] : 1960; Age: 59 years y/o Female [...] No acute abnormality as above discussed. SL: [id number] at 1140 Reported and signed by: Adam Andersen M.D. CC: Lacy Thompson NP; Jaspreet Jerez MD Lucita hnologist: Ren Herron RT(R) Trnscrd Date/T meenakshi/By: 02/09/2020 (1140) : By: [email or web address] Orig Print D/T: S: 0 (4444) PAGE 1 Signed Report - XR CHEST 2 [id number] 09:20:00 FAX: Jaspreet Perea MD [phone] [place]: O St: REG Name: TAI MANLEY [facility] : [birth year] Age/S: 59/F [address] [facility] Unit #: [id number] Loc: [place] [address] Phys: Jaspreet Jerez MD Acct: [id number] Dis Date: Status: REG CLI PHONE #: [phone] Exam Date: 11/28/2019904 FAX #: [phone] Reason: PNEUMONIA F/U EXAMS: CPT CODE: [id number] XR CHEST 2 V 81296 REASON FOR EXAM: PNEUMONIA F/U Exam Order Date: 11/28/2019 8:54 AM Ordering M.D.: Jaspreet Jerez MD PROCEDURE: - XR CHEST [...] IMPRESS ION: No acute cardiopulmonary process. Location: [facility] at 0920 Reported and signed by: Bacilio Hua MD CC: Dell Jerez MD Technologist: WENDY PETERS RT (R) Trnscrd Date/Time/By: 11/28/2019 (919) : By : [email or web address] Orig Print D/T: S: 11/28/2019 (9677) PAGE 1 Signed Report [id number] 15:48:00* Test Item Value Reference Range Interpretation Comments GLUBED (test code = GLUBED) 129 mg/dL 74-106 H Performed by certified radial saw operator at [facility] BASIC METABOLIC [id number] 03:54:00* Test Item Value Reference Range Interpretation [...] code = CA) 7.9 mg/dL 8.5-10.1 L [id number] 03:54:00* Test Item Value Reference Range Interpretation Comments PHOSPHORUS (test code = PHOS) 5.9 mg/dL 2.5-4.9 H [id number] 03:54:00* Test Item Value Reference Range Interpretation Comments MAGNESIUM (test code = MAG) 2.1 mg/dL 1.8-2.4 N CBC W/AUTO [id number] 03:12:00* Test Item Value Reference Range Interpretation [...] = MDIFF) NO, ONLY SCAN NEEDED DIFFERENTIAL [id number] 03:12:00* Test Item Value Reference Range Interpretation Comments STAIN ACCEPTABILITY (test code = STN ACCEPTABLE) STAIN ACCEPTABLE POIKILOCYTOSIS (test code = POIK) 1+ ANISOCYTOSIS (test code = ANISO) 1+ MICROCYTOSIS (test code = MICR) 1+ TEAR DROP CELLS (test code = TEAR) 1+ PLATELET ESTIMATE (test code = PLTEST) ADEQUATE PLATELET MORPHOLOGY (test code = PLTMORPH) NORMAL CBC W/AUTO [id number] 01:53:00* Test Item Value Reference Range Interpretation [...] = MDIFF) NO, ONLY SCAN NEEDED DIFFERENTIAL [id number] 01:53:00* Test Item Value Reference Range Interpretation Comments STAIN ACCEPTABILITY (test code = STN ACCEPTABLE) CABOT RINGS (test code = CAB) MORPHOLOGY COMMENT (test code = MOC) PLATELET ESTIMATE (test code = PLTEST) PLATELET MORPHOLOGY (test code = PLTMORPH) CBC W/AUTO [id number] 01:53:00* Test Item Value Reference Range Interpretation [...] = MDIFF) NO, ONLY SCAN NEEDED DIFFERENTIAL [id number] 01:53:00* Test Item Value Reference Range Interpretation Comments STAIN ACCEPTABILITY (test code = STN ACCEPTABLE) MORPHOLOGY COMMENT (test code = MOC) PLATELET ESTIMATE (test code = PLTEST) PLATELET MORPHOLOGY (test code = PLTMORPH) CBC W/AUTO [id number] 01:52:00* Test Item Value Reference Range Interpretation [...] = MDIFF) NO, ONLY SCAN NEEDED DIFFERENTIAL [id number] 01:52:00* Test Item Value Reference Range Interpretation Comments STAIN ACCEPTABILITY (test code = STN ACCEPTABLE) CABOT RINGS (test code = CAB) MORPHOLOGY COMMENT (test code = MOC) PLATELET ESTIMATE (test code = PLTEST) PLATELET MORPHOLOGY (test code = PLTMORPH) CBC W/AUTO [id number] 01:52:00* Test Item Value Reference Range Interpretation [...] = MDIFF) NO, ONLY SCAN NEEDED DIFFERENTIAL [id number] 01:52:00* Test Item Value Reference Range Interpretation Comments STAIN ACCEPTABILITY (test code = STN ACCEPTABLE) CABOT RINGS (test code = CAB) MORPHOLOGY COMMENT (test code = MOC) PLATELET ESTIMATE (test code = PLTEST) PLATELET MORPHOLOGY (test code = PLTMORPH) [id number] 20:54:00* Test Item Value Reference Range Interpretation Comments GLUBED (test code = GLUBED) 150 mg/dL 74-106 H Performed by certified radial saw operator at [facility] [id number] 17:05:00* Test Item Value Reference Range Interpretation Comments GLUBED (test code = GLUBED) 111 mg/dL 74-106 H Performed by certified radial saw operator at [facility] - XR CHEST 1 [id number] 14:44:00 FAX: Haley Acuña NP [phone] [place]: B St: ADM FAX: Samuel Gibbs MD FAX: Jaspreet Perea MD [phone] Name: TAI GRANT [facility] : 1960 Age/S: 59/F [address] Unit #: [id number] Loc: V.[address] [place] [address] Phys: Haley Acuña SPA MANAGER/ESTHETICIAN Acct: [id number] Dis Date: Status: ADM IN ONE #: [phone] Exam Date: 11/02/2019 1431 FAX #: [phone] Reason: sob EXAMS: CPT CODE: [id number] XR CHEST 1 V 83652 REASON FOR EXAM: sob EXAM ORDER DATE: 11/02/2019 5:00 AM Ord ering: Haley Acuña NP Attending:Samuel Marino MD Location:[facility] PROCEDURE: - XR CHEST 1 V COMPARISON: 11/01/2019 FINDINGS: Portable AP frontal view of the chest obtained at 2:31 PM shows clear lungs without evidence of consolidation. There is no evidence of effusion. The heart size is minimally enlarged. Pulmonary vasculatures are unremarkable. IMPRESSION: Resolution of the congestive he art failure. at 0907 Reported and signed by: Jasper Blevins M.D. CC: Haley Acuña NP; Samuel Marino MD; Jaspreet Jerez MD Technologist: Wilfred BranTLuna(R); Mariel Newell RT(R) Trnscrd Date/Time/By: 06/2020 (2621) : By: [email or web address] Orig Print D/T: S: 11/02/2019 (4999) PAGE 1 Signed Report [id number] 12:31:00* Test Item Value Reference Range Interpretation Comments GLUBED (test code = GLUBED) 101 mg/dL 74-106 N Performed by certified radial saw operator at [facility] [id number] 06:41:00* Test Item Value Reference Range Interpretation Comments GLUBED (test code = GLUBED) 114 mg/dL 74-106 H Per[facility] certified [facility]~ BASIC METABOLIC [id number] 06:16:00* Test Item Value Reference Range Interpretation [...] CA) 8.4 mg/dL 8.5-10.1 L BASIC METABOLIC [id number] 06:08:00* Test Item Value Reference Range Interpretation [...] code = CA) mg/dL 8.5-10.1 CBC W/AUTO [id number] 02:50:00* Test Item Value Reference Range Interpretation [...] = MDIFF) NO, ONLY SCAN NEEDED DIFFERENTIAL [id number] 02:50:00* Test Item Value Reference Range Interpretation Comments STAIN ACCEPTABILITY (test code = STN ACCEPTABLE) STAIN ACCEPTABLE POLYCHROMASIA (test code = POLC) 1+ POIKILOCYTOSIS (test code = POIK) 1+ TEAR DROP CELLS (test code = TEAR) 1+ PLATELET ESTIMATE (test code = PLTEST) ADEQUATE PLATELET MORPHOLOGY (test code = PLTMORPH) NORMAL BASIC METABOLIC [id number] 02:15:00* Test Item Value Reference Range Interpretation [...] code = CA) 8.2 mg/dL 8.5-10.1 L [id number] 02:15:00* Test Item Value Reference Range Interpretation Comments PHOSPHORUS (test code = PHOS) 3.9 mg/dL 2.5-4.9 N [id number] 02:15:00* Test Item Value Reference Range Interpretation Comments MAGNESIUM (test code = MAG) 1.8 mg/dL 1.8-2.4 N CBC W/AUTO [id number] 01:31:00* Test Item Value Reference Range Interpretation [...] = MDIFF) NO, ONLY SCAN NEEDED DIFFERENTIAL [id number] 01:31:00* Test Item Value Reference Range Interpretation Comments STAIN ACCEPTABILITY (test code = STN ACCEPTABLE) CABOT RINGS (test code = CAB) MORPHOLOGY COMMENT (test code = MOC) PLATELET ESTIMATE (test code = PLTEST) PLATELET MORPHOLOGY (test code = PLTMORPH) CBC W/AUTO [id number] 01:31:00* Test Item Value Reference Range Interpretation [...] = MDIFF) NO, ONLY SCAN NEEDED DIFFERENTIAL [id number] 01:31:00* Test Item Value Reference Range Interpretation Comments STAIN ACCEPTABILITY (test code = STN ACCEPTABLE) CABOT RINGS (test code = CAB) MORPHOLOGY COMMENT (test code = MOC) PLATELET ESTIMATE (test code = PLTEST) PLATELET MORPHOLOGY (test code = PLTMORPH) CBC W/AUTO [id number] 01:31:00* Test Item Value Reference Range Interpretation [...] = MDIFF) NO, ONLY SCAN NEEDED DIFFERENTIAL [id number] 01:31:00* Test Item Value Reference Range Interpretation Comments STAIN ACCEPTABILITY (test code = STN ACCEPTABLE) MORPHOLOGY COMMENT (test code = MOC) PLATELET ESTIMATE (test code = PLTEST) PLATELET MORPHOLOGY (test code = PLTMORPH) CBC W/AUTO [id number] 01:31:00* Test Item Value Reference Range Interpretation [...] = MDIFF) NO, ONLY SCAN NEEDED DIFFERENTIAL [id number] 01:31:00* Test Item Value Reference Range Interpretation Comments STAIN ACCEPTABILITY (test code = STN ACCEPTABLE) CABOT RINGS (test code = CAB) MORPHOLOGY COMMENT (test code = MOC) PLATELET ESTIMATE (test code = PLTEST) PLATELET MORPHOLOGY (test code = PLTMORPH) ARTERIAL BLOOD [id number] 23:28:00* Test Item Value Reference Range Interpretation [...] by ANDRE Burr 23:27 - 11/01/2019; by [id number] ABG O2 SATURATION (test code = SATA) [...] = O2CT) 14.4 % vol 18.0-22.0 L [id number] 19:44:00* Test Item Value Reference Range Interpretation Comments GLUBED (test code = GLUBED) 104 mg/dL 74-106 N Performed by certified radial saw operator at [facility] [id number] 15:10:00* Test Item Value Reference Range Interpretation Comments GLUBED (test code = GLUBED) 132 mg/dL 74-106 H Performed by certified radial saw operator at [facility] [id number] 10:14:00* Test Item Value Reference Range Interpretation Comments GLUBED (test code = GLUBED) 121 mg/dL 74-106 H Performed by certified radial saw operator at [facility] [id number] 09:52:00* Test Item Value Reference Range Interpretation Comments GLUBED (test code = GLUBED) 116 mg/dL 74-106 H Performed by certified radial saw operator at [facility] [id number] 07:12:00* Test Item Value Reference Range Interpretation Comments GLUBED (test code = GLUBED) 104 mg/dL 74-106 N Performed by certified radial saw operator at [facility] BASIC METABOLIC [id number] 07:11:00* Test Item Value Reference Range Interpretation [...] CA) 7.8 mg/dL 8.5-10.1 L BASIC METABOLIC [id number] 07:10:00* Test Item Value Reference Range Interpretation [...] CA) mg/dL 8.5-10.1 - XR CHEST 1 [id number] 07:06:00 FAX: John Mckeon [phone] [place]: B St: ADM FAX: Samuel Gibbs MD FAX: Jaspreet Perea MD [phone] Name: TAI GRANT [facility] : 1960 Age/S: 59/F [address] [facility] Unit #: [id number] Loc: V.S26 [place] [address] Phys: John Mckeon Acct: [id number] Dis Date: Status: ADM IN ONE #: [phone] Exam Date: 11/01/2019 0500 FAX #: [phone] Reason: updated pulm view EXAMS: CPT CODE: [id number] XR CHEST 1 V 93779 HISTORY: Respi ratory failure. COMPARISON: Previous day. [...] (09) PAGE 1 Signed Report BASIC METABOLIC [id number] 02:07:00* Test Item Value Reference Range Interpretation [...] code = CA) 8.2 mg/dL 8.5-10.1 L [id number] 02:07:00* Test Item Value Reference Range Interpretation Comments MAGNESIUM (test code = MAG) 1.9 mg/dL 1.8-2.4 N BASIC METABOLIC [id number] 01:55:00* Test Item Value Reference Range Interpretation [...] CALCIUM (test code = CA) mg/dL 8.5-10.1 [id number] 01:55:00* Test Item Value Reference Range Interpretation Comments MAGNESIUM (test code = MAG) mg/dL 1.8-2.4 CBC W/O [id number] 01:45:00* Test Item Value Reference Range Interpretation [...] code = MPV) 9.8 fL 6.7-11.0 N [id number] 21:27:00* Test Item Value Reference Range Interpretation Comments GLUBED (test code = GLUBED) 170 mg/dL 74-106 H Performed by certified radial saw operator at [facility] [id number] 16:38:00* Test Item Value Reference Range Interpretation Comments GLUBED (test code = GLUBED) 139 mg/dL 74-106 H Performed by certified radial saw operator at [facility] [id number] 11:39:00* Test Item Value Reference Range Interpretation Comments GLUBED (test code = GLUBED) 173 mg/dL 74-106 H Performed by certified radial saw operator at [facility] CBC W/AUTO [id number] 11:35:00* Test Item Value Reference Range Interpretation [...] = MDIFF) NO, ONLY SCAN NEEDED DIFFERENTIAL [id number] 11:35:00* Test Item Value Reference Range Interpretation Comments STAIN ACCEPTABILITY (test code = STN ACCEPTABLE) STAIN ACCEPTABLE ANISOCYTOSIS (test code = ANISO) 1+ PLATELET ESTIMATE (test code = PLTEST) DECREASED PLATELET MORPHOLOGY (test code = PLTMORPH) NORMAL CBC W/AUTO [id number] 11:11:00* Test Item Value Reference Range Interpretation [...] = MDIFF) NO, ONLY SCAN NEEDED DIFFERENTIAL [id number] 11:11:00* Test Item Value Reference Range Interpretation Comments STAIN ACCEPTABILITY (test code = STN ACCEPTABLE) CABOT RINGS (test code = CAB) MORPHOLOGY COMMENT (test code = MOC) PLATELET ESTIMATE (test code = PLTEST) PLATELET MORPHOLOGY (test code = PLTMORPH) CBC W/AUTO [id number] 11:11:00* Test Item Value Reference Range Interpretation [...] = MDIFF) NO, ONLY SCAN NEEDED DIFFERENTIAL [id number] 11:11:00* Test Item Value Reference Range Interpretation Comments STAIN ACCEPTABILITY (test code = STN ACCEPTABLE) CABOT RINGS (test code = CAB) MORPHOLOGY COMMENT (test code = MOC) PLATELET ESTIMATE (test code = PLTEST) PLATELET MORPHOLOGY (test code = PLTMORPH) CBC W/AUTO [id number] 11:11:00* Test Item Value Reference Range Interpretation [...] = MDIFF) NO, ONLY SCAN NEEDED DIFFERENTIAL [id number] 11:11:00* Test Item Value Reference Range Interpretation Comments STAIN ACCEPTABILITY (test code = STN ACCEPTABLE) MORPHOLOGY COMMENT (test code = MOC) PLATELET ESTIMATE (test code = PLTEST) PLATELET MORPHOLOGY (test code = PLTMORPH) CBC W/AUTO [id number] 11:10:00* Test Item Value Reference Range Interpretation [...] = MDIFF) NO, ONLY SCAN NEEDED DIFFERENTIAL [id number] 11:10:00* Test Item Value Reference Range Interpretation Comments STAIN ACCEPTABILITY (test code = STN ACCEPTABLE) CABOT RINGS (test code = CAB) MORPHOLOGY COMMENT (test code = MOC) PLATELET ESTIMATE (test code = PLTEST) PLATELET MORPHOLOGY (test code = PLTMORPH) [id number] 07:51:00* Test Item Value Reference Range Interpretation Comments GLUBED (test code = GLUBED) 115 mg/dL 74-106 H Performed by certified radial saw operator at [facility] - XR CHEST 1 [id number] 06:48:00 FAX: John Mckeon [phone] [place]: B St: ADM FAX: Samuel Gibbs MD FAX: Jaspreet Perea MD [phone] Name: TAI GRANT [facility] : 1960 Age/S: 59/F [address] Unit #: [id number] Loc: V.S26 [place], [place] [address] Phys: John Mckeon Acct: [id number] Dis Date: Status: ADM IN ONE #: [phone] Exam Date: 10/31/2019 0511 FAX #: [phone] Reason: PULMONARY EDEMA EXAMS: CPT CODE: [id number] XR CHEST 1 V 31119 HISTORY: Pulmo nary edema. COMPARISON: CT chest from previous day. Location: TH. Slight improvement in the diffuse dense bilateral al veolar infiltrates, greater on the right. Dependent changes. No effusion or congestion. Moderate cardiomegaly. IMPRESSION: Slight improvement in the dense bilateral consolidation/infiltrates from previous day. at 0648 Reported and signed by: Taran bland M.D. CC: John Mckeon; Samuel Marino MD; Jaspreet Jerez MD Technologist: ROBERTH Valdez Trnscrd Date/Time/By: 10/31/2019 (0648) : By: [email or web address] Orig Print D/T: S: 10/31/2019 (0623) PAGE 1 Signed Report [id number] 01:56:00* Test Item Value Reference Range Interpretation Comments TROPONIN-I (test code = TROPI) <0.015 ng/mL 0-0.045 N COMMENTS TO IT INTERN: COLLECT 3 HOURS AFTER PREVIOUS SAMPLEBASIC METABOLIC [id number] 01:54:00* Test Item Value Reference Range Interpretation [...] code = CA) 7.6 mg/dL 8.5-10.1 L [id number] 01:54:00* Test Item Value Reference Range Interpretation Comments PHOSPHORUS (test code = PHOS) 6.1 mg/dL 2.5-4.9 H [id number] 01:54:00* Test Item Value Reference Range Interpretation Comments MAGNESIUM (test code = MAG) 2.0 mg/dL 1.8-2.4 N CALCIUM [id number] 01:54:00* Test Item Value Reference Range Interpretation Comments CALCIUM IONIZED (test code = L[place]) 1.08 mmol/L 1.12-1.32 L BASIC METABOLIC [id number] 01:53:00* Test Item Value Reference Range Interpretation [...] CALCIUM (test code = CA) mg/dL 8.5-10.1 [id number] 01:53:00* Test Item Value Reference Range Interpretation Comments PHOSPHORUS (test code = PHOS) mg/dL 2.5-4.9 [id number] 01:53:00* Test Item Value Reference Range Interpretation Comments MAGNESIUM (test code = MAG) mg/dL 1.8-2.4 CALCIUM [id number] 01:53:00* Test Item Value Reference Range Interpretation Comments CALCIUM IONIZED (test code = [place]) 1.08 mmol/L 1.12-1.32 L BASIC METABOLIC [id number] 01:45:00* Test Item Value Reference Range Interpretation [...] CALCIUM (test code = CA) mg/dL 8.5-10.1 [id number] 01:45:00* Test Item Value Reference Range Interpretation Comments PHOSPHORUS (test code = PHOS) mg/dL 2.5-4.9 [id number] 01:45:00* Test Item Value Reference Range Interpretation Comments MAGNESIUM (test code = MAG) mg/dL 1.8-2.4 CALCIUM [id number] 01:45:00* Test Item Value Reference Range Interpretation Comments CALCIUM IONIZED (test code = [place]) mmol/L 1.12-1.32 CBC W/AUTO [id number] 01:42:00* Test Item Value Reference Range Interpretation [...] DIFF REQUIRED (test code = MDIFF) NO [id number] 20:24:00* Test Item Value Reference Range Interpretation Comments GLUBED (test code = GLUBED) 220 mg/dL 74-106 H Performed by certified radial saw operator at [facility] LACTIC [id number] 18:22:00* Test Item Value Reference Range Interpretation Comments LACTIC ACID (test code = LACT) 2.3 mmol/L 0.4-1.9 HH Results called to KXL2792 by V.LAB.SPR 10/30/19 1822Critical results verified and read back by Nurse? Y [id number] 15:05:00* Test Item Value Reference Range Interpretation Comments GLUBED (test code = GLUBED) 150 mg/dL 74-106 H Performed by certified radial saw operator at [facility] AG HEPAT B [id number] 12:30:00* Test Item Value Reference Range Interpretation Comments AG HEPAT B SURF (test code = HBSAG) Nonreactive Index Nonreactive LACTIC [id number] 12:10:00* Test Item Value Reference Range Interpretation Comments LACTIC ACID (test code = LACT) 3.1 mmol/L 0.4-1.9 Results called to [id number] by V.LAB.WJC 10/30/19 1208Critical results verified and read back by Nurse? Y [id number] 12:05:00* Test Item Value Reference Range Interpretation Comments TROPONIN-I (test code = TROPI) <0.015 ng/mL 0-0.045 N COMMENTS TO IT INTERN: COLLECT 3 HOURS AFTER PREVIOUS [id number] 09:42:00* Test Item Value Reference Range Interpretation Comments GLUBED (test code = GLUBED) 149 mg/dL 74-106 H Performed by certified radial saw operator at [facility] - CT CHEST W/[id number] 08:08:00 Name: TAI GRANT [facility] : 1960 Age/S: 59 / F [address] Unit #: [id number] Loc: [place] [address] Phys: Andre Woods MD Acct: [id number] Dis Date: Status: ADM IN PHONE #: [phone] Exam Date: 10/30/2019 0751 FAX #: [phone] Reason: concern aortic aneurysm EXAMS: CPT CODE: [id number] CT CHEST W/CONTRAST 72787 HISTORY: Concern for aortic aneurysm. COMPARISON: None [...] and signed by: Taran Ortiz M.D. CC: Samuel Marino MD; Deonte Jerez MD; Andre Woods MD Technologist:Olegario Horta RT(R),(MR),(CT); CTDI: DLP: Trnscb Date/Time: 10/30/2019 (0808) t.SDR.TH4 Orig Print D/T: S: 10/30/2019 (0812) PAGE 1 Signed Report - XR CHEST 1 [id number] 05:27:00 FAX: Jaspreet Perea MD [phone] [place]: B St: ADM FAX: Andre Woods MD Name: TAI GRANT [facility] : 1960 Age/S: 59/F [address] Unit #: [id number] Loc: [place], [place] [address] Phys: Andre Woods MD Acct: [id number] Dis Date: Status: ADM IN PHONE #: [phone] Exam Date: 10/30/2019521 FAX #: [phone] Reason: ETT readjustment EXAMS: CPT CODE: [id number] XR CHEST 1 V 53231 DICTATION LOCATION: H48 HISTORY: Female, 59 years [...] nd further assessment with CT scan. at 0521 Reported and sig ronnie by: Whitney Peterson MD CC: Jaspreet Jerez MD; Ricky Woods MD Technologist: Mary Valdez Trnscrd Date/Time/By: 10/30/2019 (05) : By: Maurice O rig Print D/T: S: 10/30/2019 (1723) PAGE 1 Signed Report ARTERIAL BLOOD GAS 2019-10-30 05:18:00* Test Item Value Reference Range Interpretation Comments ARTERIAL BLOOD GAS PH (test code = PHA) 7.17 7.35-7.45 L L Results called to and read back by ANDRE Burr 05:18 - 10/30/2019; by [id number] ARTERIAL BLOOD GAS PCO2 (test code = PCO2A) 51.1 mm Hg 35-45 H ARTERIAL BLOOD GAS PO2 (test code = PO2A) 119.9 mmHg 80-100 H BICARBONATE TOTAL HCO3 (test code = HCO3) 18.1 mmol/L 23.0-27.0 L BASE EXCESS (test code = МАРИЯ) -10.3 mmol/L -3.0-5.0 LL Results called to and read back by ANDRE Burr 05:18 - 10/30/2019; by [id number] ABG O2 SATURATION (test code = SATA) [...] into account the patients history. B-TYPE NATRIURETIC [id number] 05:05:00* Test Item Value Reference Range Interpretation Comments B-TYPE NATRIURETIC PEPTIDE (test code = BNP) 90.68 pgram/mL 0-100 N BASIC METABOLIC [id number] 05:05:00* Test Item Value Reference Range Interpretation [...] CA) 7.7 mg/dL 8.5-10.1 L HEPATIC FUNCTION [id number] 05:05:00* Test Item Value Reference Range Interpretation [...] reference range due to change in reagent. [id number] 05:05:00* Test Item Value Reference Range Interpretation Comments MAGNESIUM (test code = MAG) 2.0 mg/dL 1.8-2.4 N [id number] 05:05:00* Test Item Value Reference Range Interpretation Comments TROPONIN-I (test code = TROPI) <0.015 ng/mL 0-0.045 N [id number] 05:05:00* Test Item Value Reference Range Interpretation Comments SALICYLATE (test code = LIZABETH) < 1.7 mg/dL 2.8-20.0 L VALPROIC ACID (DEPAKENE)2019-10-30 05:05:00* Test Item Value Reference Range Interpretation Comments VALPROIC ACID (DEPAKENE) (test code = VALP) <3.0 mcg/mL 50.0-100.0 L CBC W/AUTO [id number] 04:56:00* Test Item Value Reference Range Interpretation [...] = MDIFF) NO, ONLY SCAN NEEDED DIFFERENTIAL [id number] 04:56:00* Test Item Value Reference Range Interpretation Comments STAIN ACCEPTABILITY (test code = STN ACCEPTABLE) STAIN ACCEPTABLE POLYCHROMASIA (test code = POLC) 1+ ANISOCYTOSIS (test code = ANISO) 1+ MACROCYTOSIS (test code = MACR) 1+ PLATELET ESTIMATE (test code = PLTEST) ADEQUATE PLATELET MORPHOLOGY (test code = PLTMORPH) NORMAL - XR CHEST 1 [id number] 04:47:00 FAX: Andre Woods MD [place]: St: REG Name: TAI MANLEY [facility] : [birth year] Age/S: 59/F [address] [facility]: [id number] Loc: [place] [address] Phys: Andre Woods MD Acct: [id number] Dis Date: Status: REG ER PHONE #: [phone] Exam Date: 10/30/2019437 FAX #: [phone] Reason: CODE SEPSIS EXAMS: CPT CODE: [id number] XR CHEST 1 V 02288 DICTATION LOCATION: 8 HISTORY: Female, 59 years [...] by Whitney Peterson MD on 03/2020 at 2266 Reported and signed by: Whitney Peterson MD CC: Andre Woods MD Technologist: Mary Valdez Trnscrd Brent e/Time/By: 10/30/2019 (8190) : By: BanW Orig Print D/T: S: 2019 (3108) PAGE 1 Signed Report - XR CHEST 1 [id number] 04:47:00 FAX: Andre Woods MD [place]: St: ADM Name: TAI MANLEY [facility] : [birth year] Age/S: 59/F [address] [facility] Unit #: [id number] Loc: V.S26 [place] [address] Phys: Andre Woods MD Acct: [id number] Dis Date: Status: ADM IN PHONE #: [phone] Exam Date: 10/30/2019437 FAX #: [phone] Reason: CODE SEPSIS EXAMS: CPT CODE: [id number] XR CHEST 1 V 95486 DICTATION LOCATION: 8 HISTORY: Female, 59 years [...] by Whitney Peterson MD on 03/2020 at 0443 Reported and signed by: Whitney Peterson MD CC: Andre Woods MD Technologist: Mary Valdez Trnscrd [place] e/Time/By: 10/30/2019 (0447) : By: BanW Orig Print D/T: S: 2019 (3847) PAGE 1 Signed Report LACTIC [id number] 04:46:00* Test Item Value Reference Range Interpretation Comments LACTIC ACID (test code = LACT) 2.0 mmol/L 0.4-1.9 H Results called to SEA3427 by GRETA 10/30/19 0446Critical results verified and read back by Nurse? Y BASIC METABOLIC [id number] 04:45:00* Test Item Value Reference Range Interpretation [...] CA) 7.7 mg/dL 8.5-10.1 L HEPATIC FUNCTION [id number] 04:45:00* Test Item Value Reference Range Interpretation [...] TOTAL (test code = ALKP) IUnit/L 45-117 [id number] 04:45:00* Test Item Value Reference Range Interpretation Comments MAGNESIUM (test code = MAG) 2.0 mg/dL 1.8-2.4 N [id number] 04:45:00* Test Item Value Reference Range Interpretation Comments TROPONIN-I (test code = TROPI) ng/mL 0-0.045 [id number] 04:45:00* Test Item Value Reference Range Interpretation Comments SALICYLATE (test code = LIZABETH) mg/dL 2.8-20.0 VALPROIC ACID (DEPAKENE)2019-10-30 04:45:00* Test Item Value Reference Range Interpretation Comments VALPROIC ACID (DEPAKENE) (test code = VALP) mcg/mL 50.0-100.0 PROTHROMBIN [id number] 04:41:00* Test Item Value Reference Range Interpretation [...] (2.5-3.5) IS PATIENT ON ANTICOAGULANTS? NTHROMBOPLASTIN TIME [id number] 04:41:00* Test Item Value Reference Range Interpretation Comments THROMBOPLASTIN TIME PARTIAL (test code = PTT) 36.4 seconds 25.0-36. 5 N IS PATIENT ON ANTICOAGULANTS? NBASIC METABOLIC [id number] 04:39:00* Test Item Value Reference Range Interpretation [...] code = CA) mg/dL 8.5-10.1 HEPATIC FUNCTION [id number] 04:39:00* Test Item Value Reference Range Interpretation [...] TOTAL (test code = ALKP) IUnit/L 45-117 [id number] 04:39:00* Test Item Value Reference Range Interpretation Comments MAGNESIUM (test code = MAG) mg/dL 1.8-2.4 [id number] 04:39:00* Test Item Value Reference Range Interpretation Comments TROPONIN-I (test code = TROPI) ng/mL 0-0.045 [id number] 04:39:00* Test Item Value Reference Range Interpretation Comments SALICYLATE (test code = LIZABETH) mg/dL 2.8-20.0 VALPROIC ACID (DEPAKENE)2019-10-30 04:39:00* Test Item Value Reference Range Interpretation Comments VALPROIC ACID (DEPAKENE) (test code = VALP) mcg/mL 50.0-100.0 CT MAXIO FAC/PARANAS [id number] 14:27:00 [place] [address] Patient Name: TAI GRANT MR #: [id number] : 1960 Age/Sex: 59/F Req #: [id number] Adm Physician: Ordered by: MERI LEE, JASPREET Ron MD Report #: [id number] Location: CT Room/Bed: Procedure: 1119-[address]/CT MAXIO FAC/PARANAS WO Exam Date: 09/12/19 [place] Time: 1430 REPORT STATUS: Signed EXAMINATION: CT [...] 2:37 PM Dictated By: RANDALL HAQUE MD 36 Transcribed By: ROBI on 09/12/191436 COPY TO: JASPREET OBRIEN CT BRAIN [id number] 14:26:00 [place] [address] Patient Name: TAI GRANT MR #: [id number] : 1960 Age/Sex: 59/F Req #: [id number] Adm Physician: Ordered by: MERI LEE, JASPREET [...] PM D ictated By: RANDALL HAQUE MD 26 Transcribed By: ROBI on 09/12/191426 COPY TO: JASPREET JEREZ [id number] 14:14:00* Test Item Value Reference Range Interpretation Comments GLUBED (test code = GLUBED) 260 mg/dL 70-110 H [id number] 11:32:00* Test Item Value Reference Range Interpretation Comments GLUBED (test code = GLUBED) 149 mg/dL 70-110 H [id number] 06:53:00* Test Item Value Reference Range Interpretation Comments GLUBED (test code = GLUBED) 113 mg/dL 70-110 H [id number] 17:00:00* Test Item Value Reference Range Interpretation Comments GLUBED (test code = GLUBED) 127 mg/dL 70-110 H [id number] 08:33:00* Test Item Value Reference Range Interpretation Comments GLUBED (test code = GLUBED) 105 mg/dL 70-110 N BASIC METABOLIC [id number] 07:30:00* Test Item Value Reference Range Interpretation [...] CA) 7.4 mg/dl 8.0-10.5 L CBC W/AUTO [id number] 07:28:00* Test Item Value Reference Range Interpretation [...] code = BA#) 0.0 K/mm3 0.0-0.2 N [id number] 18:55:00* Test Item Value Reference Range Interpretation Comments GLUBED (test code = GLUBED) 223 mg/dL 70-110 H COLON [id number] 14:56:00 RUN DATE: 01/24/19 [facility]ly [facility] - Lab PAGE 1 RUN TIME: 1456 Specimen Inqui ry RUN USER: INTERFACE PATIENT: TAI GRANT ACCT #: [id number] LOC: [place] U #: [id number] AGE/SX: 58/F ROOM: [facility] RE01/16/19ALEX DR: Guanakito Cash : [birth year] BED: 1 DIS: STATUS: ADM IN TLOC: SPEC #: [id number] RECD: 01/23/19 STATUS: NITO TUCKER #: [id number] JAZMINE: 01/23/19- SUBM DR: Guanakito Cash MD ENTERED: 01/23/19 SP TYPE: COLONBX OTHR DR: No Loreta imani or Family Physician Self Referred Judith Yin MD See Bertha lee MDORDERED: REQUEST COPIES TO: No Primary or Family Physician Self Referred Guanakito Cash MD [address] [place] [address] [email or web address] Judith Lai MD [facility] [place] [address] OTHER PHONE [phone] (CELL) Bertha Martin MD [address] [facility] [place] [address] [place] [address] PROCEDURES: REQUEST (01/23/19) TISSUES: A. COLON, NOS - RANDOM COLON BX B. COLON, NOS - DESC.COLON POLYP CLINICAL HISTORY Anemia, +FOBT, diarrhea, descending colon polyp, internal hemorrhoids FINAL DIAGNOSIS A. RANDOM COLON BIOPSIES: MILD NON SPECIFIC C HRONIC COLITIS. NO THICKENING OF BASEMENT MEMBRANE SEEN ON TRICHROME STA IN. B. DESCENDING COLON POLYP: CONTINU ED ON NEXT PAGE RUN DATE: 01/24/19 [facility] - Lab PAGE 2 RUN TIME: 1456 Specimen Inquiry RUN USER: INTERFACE SPEC #: [id number] PAT IENT: TAI GRANT #[id number] (Continued) FINAL DIAGNOSIS (Continued) TUBULAR ADENOMA. CPT COD E: 54769 X 2 70271 MACROSCOPIC A. Specimen is received in formalin [...] SEE DIAGNOSIS Signed SIGNATURE ON FILE Adarsh Weller 01/24/19 1456 END OF REPORT - XR ABDOMEN 1 V 2019-01-24 14:41:00 FAX: Guanakito Jennings [phone] [place]: St: ADM FAX: Oneyda Dwyer MD [phone] Name: TAI GRANT [facility] : 1960 Age/S: 58/F [address] [facility] Unit #: [id number] Loc: [address] Phys: [place] [address] Acct: [id number] Dis Date: Status: ADM IN PHONE #: [phone] Exam Date: 01/24/2019 1420 FAX #: [phone] Reason: abdominal pain EXAMS: CPT CODE: [id number] XR ABDOMEN 1 V 88082 REASON FOR EXAM: Abdominal pain. Abdomen, single view. The gas pattern appears to be normal. Stool content appropriate. No unusual calcifications. Embolization coils possibly at the lower part of the right renal region. Possible cholecystectomy. Bony structures intact IMPRESSION: Normal gas pattern and stool content. No acute abnormality. Location: U19 at 1441 Reported and signed by: Danilo Nieves M.D. CC: Guanakito Cash MD; Oneyda Reynaga MD Technologist: JUANCARLOS WALLACE Trnscrd Date/Time/By: 01/24/2019 (7649) : By: [facility] PAGE 1 Signed Report FAX: Guanakito Jennings [phone] [place]: St: ADM FAX: Y Oneyda Reyngaa MD [phone] Name: TAI GRANT [facility] : 1960 A ge/S: 58/F [address] [facility] Unit #: [id number] Loc : [address] [place] [address] Phys: [place] [address] Acct: [id number] Dis Date: Status: ADM IN PHONE #: [phone] E xam Date: 01/24/2019 1420 FAX #: [phone] Reas on: abdominal pain EXAMS: CPT CODE: [id number] XR ABDOMEN 1 V 81173 <Continued> Orig Print D/T: S: 01/24/2019 (0674) PAGE 2 Signed Report [id number] 07:46:00* Test Item Value Reference Range Interpretation Comments GLUBED (test code = GLUBED) 94 mg/dL 70-110 N CBC W/AUTO [id number] 07:44:00* Test Item Value Reference Range Interpretation [...] BA#) 0.0 K/mm3 0.0-0.2 N BASIC METABOLIC [id number] 07:43:00* Test Item Value Reference Range Interpretation [...] code = CA) 7.9 mg/dl 8.0-10.5 L [id number] 00:59:00* Test Item Value Reference Range Interpretation Comments GLUBED (test code = GLUBED) 136 mg/dL 70-110 H [id number] 20:07:00* Test Item Value Reference Range Interpretation Comments GLUBED (test code = GLUBED) 131 mg/dL 70-110 H [id number] 16:15:00* Test Item Value Reference Range Interpretation Comments GLUBED (test code = GLUBED) 94 mg/dL 70-110 N [id number] 11:19:00* Test Item Value Reference Range Interpretation Comments GLUBED (test code = GLUBED) 86 mg/dL 70-110 N BASIC METABOLIC [id number] 07:32:00* Test Item Value Reference Range Interpretation [...] code = CA) 9.3 mg/dl 8.0-10.5 N [id number] 07:32:00* Test Item Value Reference Range Interpretation Comments PHOSPHOROUS (test code = PHOS) 3.9 mg/dl 2.5-4.9 N [id number] 07:32:00* Test Item Value Reference Range Interpretation Comments MAGNESIUM (test code = MAG) 2.8 mg/dl 1.8-2.4 H CBC W/AUTO [id number] 07:30:00* Test Item Value Reference Range Interpretation [...] code = BA#) 0.0 K/mm3 0.0-0.2 N [id number] 07:19:00* Test Item Value Reference Range Interpretation Comments GLUBED (test code = GLUBED) 70 mg/dL 70-110 N [id number] 21:42:00* Test Item Value Reference Range Interpretation Comments GLUBED (test code = GLUBED) 113 mg/dL 70-110 H [id number] 16:51:00* Test Item Value Reference Range Interpretation Comments GLUBED (test code = GLUBED) 90 mg/dL 70-110 N [id number] 11:21:00* Test Item Value Reference Range Interpretation Comments GLUBED (test code = GLUBED) 181 mg/dL 70-110 H COMPREHENSIVE METABOLIC [id number] 07:55:00* Test Item Value Reference Range Interpretation [...] = ALKP) 155 Units/L 50.0-136 .0 H [id number] 07:55:00* Test Item Value Reference Range Interpretation Comments MAGNESIUM (test code = MAG) 2.0 mg/dl 1.8-2.4 N [id number] 07:20:00* Test Item Value Reference Range Interpretation Comments GLUBED (test code = GLUBED) 119 mg/dL 70-110 H CBC W/AUTO [id number] 07:20:00* Test Item Value Reference Range Interpretation [...] code = BA#) 0.0 K/mm3 0.0-0.2 N [id number] 16:04:00* Test Item Value Reference Range Interpretation Comments GLUBED (test code = GLUBED) 108 mg/dL 70-110 N [id number] 11:49:00* Test Item Value Reference Range Interpretation Comments GLUBED (test code = GLUBED) 123 mg/dL 70-110 H [id number] 07:12:00* Test Item Value Reference Range Interpretation Comments GLUBED (test code = GLUBED) 98 mg/dL 70-110 N [id number] 23:04:00* Test Item Value Reference Range Interpretation Comments GLUBED (test code = GLUBED) 232 mg/dL 70-110 H [id number] 17:44:00* Test Item Value Reference Range Interpretation Comments GLUBED (test code = GLUBED) 169 mg/dL 70-110 H [id number] 16:56:00* Test Item Value Reference Range Interpretation Comments GLUBED (test code = GLUBED) 177 mg/dL 70-110 H CBC W/AUTO [id number] 11:42:00* Test Item Value Reference Range Interpretation [...] N MACROCYTOSIS (test code = MACR) OCCASIONAL [id number] 11:36:00* Test Item Value Reference Range Interpretation Comments GLUBED (test code = GLUBED) 83 mg/dL 70-110 N BASIC METABOLIC [id number] 07:21:00* Test Item Value Reference Range Interpretation [...] code = CA) 8.3 mg/dl 8.0-10.5 N [id number] 07:11:00* Test Item Value Reference Range Interpretation Comments GLUBED (test code = GLUBED) 132 mg/dL 70-110 H CBC W/AUTO [id number] 06:56:00* Test Item Value Reference Range Interpretation [...] code = BA#) 0.0 K/mm3 0.0-0.2 N [id number] 20:57:00* Test Item Value Reference Range Interpretation Comments GLUBED (test code = GLUBED) 125 mg/dL 70-110 H [id number] 16:18:00* Test Item Value Reference Range Interpretation Comments GLUBED (test code = GLUBED) 126 mg/dL 70-110 H [id number] 12:28:00* Test Item Value Reference Range Interpretation Comments GLUBED (test code = GLUBED) 105 mg/dL 70-110 N BASIC METABOLIC [id number] 06:56:00* Test Item Value Reference Range Interpretation [...] CA) 8.7 mg/dl 8.0-10.5 N CBC W/AUTO [id number] 06:17:00* Test Item Value Reference Range Interpretation [...] BA#) 0.0 K/mm3 0.0-0.2 N ACUTE HEPATITIS [id number] 17:00:00* Test Item Value Reference Range Interpretation Comments AB HEPATITIS A IGM (test code = HAVMAB) NON REACTIVE INDEX NON REAC T. Testing done at [facility] [address] [place] [address] AB HEPATITIS B SURFACE (test code = HBSAB) 12.8 mIU/mL Immunity>9. 9 Status of Immunity Anti-HBs Level Inconsistent with Immunity 0.0 - 9.9Consistent with Immunity >9.9TEST PERFORMED AT [address] [address] AG HEPATITIS B SURFACE (test code = HBSAG) NON REACTIVE INDEX NonRe active Testing done at [facility] [address] [place] [address] AB HEPATITIS B CORE IGM (test code = HBCMAB) NON REACTIVE INDEX NON REACT. Testing done at [facility] [address] [place] [address]. [place], [place] [address] AB HEPATITIS C (test code = HCVAB) NON REACTIVE INDEX NON REACT. Testing done at [facility] [address] [place] [address] Specimen comments: at start of hemodialysisAB HEPATITIS B [id number] 17:00:00* Test Item Value Reference Range Interpretation Comments AB HEPATITIS B CORE (test code = HBCAB) Negative Negative Performed At: [facility] [address] [id number] Kenny Queen MD Ph:[phone] Specimen comments: at start of mlkpfagvbdiyUZXDYX3377-87-20 16:43:00* Test Item Value Reference Range Interpretation Comments GLUBED (test code = GLUBED) 192 mg/dL 70-110 H [id number] 12:34:00* Test Item Value Reference Range Interpretation Comments GLUBED (test code = GLUBED) 146 mg/dL 70-110 H BASIC METABOLIC [id number] 06:23:00* Test Item Value Reference Range Interpretation [...] CA) 8.5 mg/dl 8.0-10.5 N CBC W/AUTO [id number] 06:03:00* Test Item Value Reference Range Interpretation [...] code = BA#) 0.0 K/mm3 0.0-0.2 N [id number] 16:28:00* Test Item Value Reference Range Interpretation Comments GLUBED (test code = GLUBED) 85 mg/dL 70-110 N [id number] 13:07:00* Test Item Value Reference Range Interpretation Comments GLUBED (test code = GLUBED) 84 mg/dL 70-110 N - CT HEAD/BRAIN W/O [id number] 12:18:00 FAX: Guanakito Jennings [phone] [place]: St: ADM FAX: Bertha Escamilla MD [phone] Name: TAI GRANT [facility] : 1960 Age/S: 58/F [address] [facility] Unit: [id number] Loc: [address] Phys: [place] [address] Acct: [id number] Dis Date: Status: ADM IN PHONE #: [phone] Exam Date: 01/17/2019 1134 FAX #: [phone] Reason: Headcahe EXAMS: CPT CODE: [id number] CT HEAD/BRAIN W/O CONT 05336 CT HEAD WITHOUT CONTRAST. HISTORY: Headache COMPARISON: [...] 1 Signed Report (CONTINUED) FAX: Guanakito Jennings [phone] [place]: St: ADM FAX: Bertha Escamilla MD [phone] Name: TAI GRANT [facility] : 1960 Age/S: 58/F [address] [facility] Unit: [id number] Loc: [address] Phys: [place] [address] Acct: [id number] Dis Date: Status: ADM IN PHONE #: [phone] Exam Date: 01/17/2019 1134 FAX #: [phone] Reason: Headcahe EXAMS: CPT CODE: [id number] CT HEAD/BRAIN W/O CONT 74845 < Continued> CC: Guanakito Cash MD; Bertha Martin MD Technologist: LYDIA RODRIGUEZ Trnscrd Dt/Tm: 01/17/2019 (2069) [email or web address] Orig Print D/T: S: 01/17/2019 (0671 PAGE 2 Signed Report THYROID STIMULATING [id number] 11:15:00* Test Item Value Reference Range Interpretation Comments THYROID STIMULATING HORMONE (test code = TSH) 3.16 IU/ML 0.47-5.0 1 N Result is in International Units/milliliter [id number] 11:12:00* Test Item Value Reference Range Interpretation Comments HGBA1C% (test code = HGBA1C%) 5.2 %A1C 4.8-6.0 N ESTIMATED AVERAGE GLUCOSE (test code = EAG) 103 MG/DL [id number] 08:47:00* Test Item Value Reference Range Interpretation Comments GLUBED (test code = GLUBED) 111 mg/dL 70-110 H COMPREHENSIVE METABOLIC [id number] 07:31:00* Test Item Value Reference Range Interpretation [...] 135 Units/L 50.0-136 .0 N Comments to [facility] Tender: Patient is currently in the ED waiting [...] LDL) 59 mg/dl 70-130 L Comments to [facility] Tender: Patient is currently in the ED waiting on a [id number] 07:31:00* Test Item Value Reference Range Interpretation Comments MAGNESIUM (test code = MAG) 1.8 mg/dl 1.8-2.4 N Comments to [facility] Tender: Patient is currently in the ED waiting on a bedCBC W/AUTO [id number] 07:03:00* Test Item Value Reference Range Interpretation [...] BA#) 0.1 K/mm3 0.0-0.2 N Comments to [facility] Tender: Patient is currently in the ED waiting on a bedACUTE HEPATITIS [id number] 04:22:00* Test Item Value Reference Range Interpretation Comments AB HEPATITIS A IGM (test code = HAVMAB) NON REACTIVE INDEX NON REAC T. Testing done at [facility] [address] [place] [address] AB HEPATITIS B SURFACE (test code = HBSAB) mIU/mL Immune >9.9 AG HEPATITIS B SURFACE (test code = HBSAG) NON REACTIVE INDEX NonRe active Testing done at [facility] [address] [place] [address] AB HEPATITIS B CORE IGM (test code = HBCMAB) NON REACTIVE INDEX NON REACT. Testing done at [facility] [address] [place] [address] AB HEPATITIS C (test code = HCVAB) NON REACTIVE INDEX NON REACT. Testing done at [facility] [address] [place] [address] Specimen comments: at start of hemodialysisAB HEPATITIS B [id number] 04:22:00* Test Item Value Reference Range Interpretation Comments AB HEPATITIS B CORE (test code = HBCAB) NON REACT. Specimen comments: at start of hemodialysisAB HEPATITIS A [id number] 04:10:00 * Test Item Value Reference Range Interpretation Comments AB HEPATITIS A IGM (test code = HAVMAB) NON REACTIVE INDEX NON REAC T. Specimen comments: at start of hemodialysisAG HEPATITIS B [id number] 04:10:00* Test Item Value Reference Range Interpretation Comments AG HEPATITIS B SURFACE (test code = HBSAG) NON REACTIVE INDEX NonRe active Specimen comments: at start of hemodialysisAB HEPATITIS B CORE [id number] 04:10:00* Test Item Value Reference Range Interpretation Comments AB HEPATITIS B CORE IGM (test code = HBCMAB) NON REACTIVE INDEX NON REACT. Specimen comments: at start of hemodialysisAB HEPATITIS [id number] 04:10:00* Test Item Value Reference Range Interpretation Comments AB HEPATITIS C (test code = HCVAB) NON REACTIVE INDEX NON REACT. Specimen comments: at start of hemodialysisACUTE HEPATITIS [id number] 04:00:00* Test Item Value Reference Range Interpretation Comments AB HEPATITIS A IGM (test code = HAVMAB) INDEX NONREACTIVE AB HEPATITIS B SURFACE (test code = HBSAB) mIU/mL Immune >9.9 AG HEPATITIS B SURFACE (test code = HBSAG) NON REACTIVE INDEX NonRe active Testing done at [facility] [address] [place] [address] AB HEPATITIS B CORE IGM (test code = HBCMAB) INDEX NONREACTI VE AB HEPATITIS C (test code = HCVAB) NON REACTIVE INDEX NON REACT. Testing done at [facility] [address] [place] [address] Specimen comments: at start of hemodialysisAB HEPATITIS B [id number] 04:00:00* Test Item Value Reference Range Interpretation Comments AB HEPATITIS B CORE (test code = HBCAB) NON REACT. Specimen comments: at start of hemodialysisAB HEPATITIS A [id number] 03:58:00 * Test Item Value Reference Range Interpretation Comments AB HEPATITIS A IGM (test code = HAVMAB) INDEX NON REACT. Specimen comments: at start of hemodialysisAG HEPATITIS B [id number] 03:58:00* Test Item Value Reference Range Interpretation Comments AG HEPATITIS B SURFACE (test code = HBSAG) NON REACTIVE INDEX NonRe active Specimen comments: at start of hemodialysisAB HEPATITIS B CORE [id number] 03:58:00* Test Item Value Reference Range Interpretation Comments AB HEPATITIS B CORE IGM (test code = HBCMAB) INDEX NON REACT . Specimen comments: at start of hemodialysisAB HEPATITIS [id number] 03:58:00* Test Item Value Reference Range Interpretation Comments AB HEPATITIS C (test code = HCVAB) NON REACTIVE INDEX NON REACT. Specimen comments: at start of hemodialysisACUTE HEPATITIS [id number] 03:37:00* Test Item Value Reference Range Interpretation Comments AB HEPATITIS A IGM (test code = HAVMAB) INDEX NONREACTIVE AB HEPATITIS B SURFACE (test code = HBSAB) mIU/mL Immune >9.9 AG HEPATITIS B SURFACE (test code = HBSAG) NON REACTIVE INDEX NonRe active Testing done at [facility] [address] [place] [address] AB HEPATITIS B CORE IGM (test code = HBCMAB) INDEX NONREACTI VE AB HEPATITIS C (test code = HCVAB) INDEX NONREACTIVE Specimen comments: at start of hemodialysisAB HEPATITIS B [id number] 03:37:00* Test Item Value Reference Range Interpretation Comments AB HEPATITIS B CORE (test code = HBCAB) NON REACT. Specimen comments: at start of hemodialysisAB HEPATITIS A [id number] 03:33:00 * Test Item Value Reference Range Interpretation Comments AB HEPATITIS A IGM (test code = HAVMAB) INDEX NON REACT. Specimen comments: at start of hemodialysisAG HEPATITIS B [id number] 03:33:00* Test Item Value Reference Range Interpretation Comments AG HEPATITIS B SURFACE (test code = HBSAG) NON REACTIVE INDEX NonRe active Specimen comments: at start of hemodialysisAB HEPATITIS B CORE [id number] 03:33:00* Test Item Value Reference Range Interpretation Comments AB HEPATITIS B CORE IGM (test code = HBCMAB) INDEX NON REACT . Specimen comments: at start of hemodialysisAB HEPATITIS [id number] 03:33:00* Test Item Value Reference Range Interpretation Comments AB HEPATITIS C (test code = HCVAB) INDEX NON REACT. Specimen comments: at start of hemodialysisCARDIAC ENZYMES [id number] 21:05:00* Test Item Value Reference Range Interpretation [...] first draw on this series Comments to [facility] Tender: Please draw the 2nd specimen q4hrs after the first and the 3rd 8hrs after the first.Specime n comments: drawn Q4hrs then B2nyeWodcdnkf to [facility] Tender: Patient is currently in the ED waiting [...] first draw on this series Comments to [facility] Tender: Please draw the 2nd specimen q4hrs after the first and the 3rd 8hrs after the first.Specime n comments: drawn Q4hrs then W2zvhFbmxhsan to [facility]iver[facility] Tender: Patient is currently in the ED waiting on a [id number] 16:33:00* Test Item Value Reference Range Interpretation Comments GLUBED (test code = GLUBED) 109 mg/dL 70-110 N CBC W/MANUAL [id number] 15:07:00* Test Item Value Reference Range Interpretation [...] (test code = PLTMORPH) NORMAL CBC W/MANUAL [id number] 14:56:00* Test Item Value Reference Range Interpretation [...] code = LYMPH) % 20-40 CBC W/MANUAL [id number] 14:56:00* Test Item Value Reference Range Interpretation [...] code = LYMPH) % 20-40 BASIC METABOLIC [id number] 12:29:00* Test Item Value Reference Range Interpretation [...] CA) 8.9 mg/dl 8.0-10.5 N B-TYPE NATRIURETIC [id number] 12:29:00* Test Item Value Reference Range Interpretation Comments B-TYPE NATRIURETIC PEPTIDE (test code = BNP) 1040 PG/ML 5-100 H CARDIAC ENZYMES [id number] 12:29:00* Test Item Value Reference Range Interpretation Comments CREATINE KINASE (CK) (test code = CK) 27 Units/L 26-192 N TROPONIN-I (test code = TROPI) <0.02 NG/ML 0.00-0.06 N REFERENCE RANGE TROPONIN I HEALTHY INDIVIDUALS: <0.06 ng/mL R/O ISCHEMIA: 0.07 - 0.60 ng/mL CUT-OFF RANGE FOR AMI: 0.60 - 1.5 ng/mL BASIC METABOLIC [id number] 12:19:00* Test Item Value Reference Range Interpretation [...] CA) 8.9 mg/dl 8.0-10.5 N B-TYPE NATRIURETIC [id number] 12:19:00* Test Item Value Reference Range Interpretation Comments B-TYPE NATRIURETIC PEPTIDE (test code = BNP) PG/ML 5-100 CARDIAC ENZYMES [id number] 12:19:00* Test Item Value Reference Range Interpretation Comments CREATINE KINASE (CK) (test code = CK) 27 Units/L 26-192 N TROPONIN-I (test code = TROPI) <0.02 NG/ML 0.00-0.06 N REFERENCE RANGE TROPONIN I HEALTHY INDIVIDUALS: <0.06 ng/mL R/O ISCHEMIA: 0.07 - 0.60 ng/mL CUT-OFF RANGE FOR AMI: 0.60 - 1.5 ng/mL CBC W/AUTO [id number] 12:02:00* Test Item Value Reference Range Interpretation [...] K/mm3 0.0-0.2 N - XR CHEST 1 [id number] 11:37:00 [place]: St: PRE Name: TAI MANLEY [facility] : [birth year] Age/S: 58/F [address] [facility] Unit #: [id number] Loc: [place], [place] Phys: [place] [address] Acct: [id number] Dis Date: Status: PRE ER PHONE #: [phone] Exam Date: 01/16/2019 1110 FAX #: [phone] Reason: SOB EXAMS: CPT CODE: [id number] XR CHEST 1 V 66273 Examination: Chest 1 view Location code: S17 [...] Jace Rogers M.D. CC: Technologist: ABDULLAHI GARRETT Trnidrd Date/Time/By: 9 (9194) : By: BobJH12 PAGE 1 Signed Report [place]: St: PRE Name: TAI GRANT : 1960 Age/S: 58/F [address] [facility] Unit #: [id number] [place]: [place]: [place] [address] A cct: [id number] Dis Date: Status: PRE ER PHONE #: [phone] Exam Date: 01/16/2019 1110 FAX #: [phone] Reason: SOB EXAMS: CPT CODE: [id number] XR CHEST 1 V 80135 < Continued> Orig Print D/T: S: 01/16/2019 (6241) PAGE 2 Signed Report MRI SPINE LUMBAR [id number] 10:26:00 [place] [address] Patient Name: TAI GRANT MR #: [id number] : 1960 Age/Sex: 58/F Req #: [id number] Adm Physician: Ordered by: BRITTNEY MARTE MD Report #: [id number] Location: MRI Room/Bed: Procedure: [id number] MRI/MR I SPINE LUMBAR WO Exam Date: [...] renal ultrasound is recommended if not previously ricky luated. Degenerative changes: L1-L2: Decreased disc height [...] Cory DELGADO TO: BRITTNEY MARTE MD SURGICAL [id number] 08:41:00 RUN DATE: 10/19/18 [facility] *LIVE* PAGE 1 RUN TIME: 840 Specimen Inqui ry RUN USER: INTERFACE PATIENT: TAI GRANT ACCT #: [id number] LOC: [place] U #: [id number] AGE/SX: 58/F ROOM: RE10/06/18[facility] DR: Saul Bender MD : 64 BED: DIS: STATUS: DEP [facility] [place] TLOC: SPEC #: [id number] RECD: 10/06/18 STATUS: NITO [facility] #: [id number] JAZMINE: 10/06/[address] [facility] [address]: Saul Bender MD ENTERED: 10/19/18 SP TYPE: SURG SPEC OTHR DR: Jaspreet Jerez MD, Manish MD Seerangan, Geetha MDORDERED: GM LEVEL 4 CODES: T90874 - STOMACH, NOS Z79097 - SM ALL INTESTINE COPIES TO: Saul Bender MD [address] [place], [place] [address]vd [address] [place] [address] Jaspreet Jerez MD [address] [place], [place] [address] Eliel Dong MD [address] [place] [address] [address] [place] [address] Bertha Martin MD [address] [place], [place] [address] PROCEDURES: GM LEVEL 4 (Incomplete ) TISSUES: 1. SMALL INTESTINE, NOS - Small intestine, distal duodenum, bx. 2. STOMACH, NOS - Stomach, prepyloric, bx. FINAL DIAGNOSIS Small intestine, distal duodenum, bx.: Intact villous architecture, no ev idence of celiac sprue. Stomach, gastric, bx.: Hyperplastic polyp, mild ac tive inflammation, no Helicobacter organisms identified. CONTINUED ON NEXT PAGE RUN DATE: 10/19/18 [facility] *LIVE* PAGE 2 RUN TIME: 840 Specimen Inquiry RUN USER: INTERF EMIL SPEC # : [id number] PATIENT: TAI GRANT #[id number] (Cont inued) GROSS AND MICROSCOPIC GROSS EXAMINATION: [...] 0841 END OF REPORT MRI SPINE CERVICAL [id number] 16:03:00 [place] [address] Patient Name: TAI GRANT MR #: [id number] : 1960 Age/Sex: 58/F Req #: [id number] [facility] Physician: Ordered by: BRITTNEY MARTE MD Report #: [id number] Location: MRI Room/Bed: Procedure: [id number] MRI/MRI SPINE CERVICAL WO Exam Date: Exam [...] By: ROBI on 06/23/181616 COPY TO: BRITTNEY AMRTE MD MAMMOGRAPHY DIGITAL SCR [id number] 15:51:00 [place] [address] Patient Name: TAI GRANT MR #: [id number] : 1960 Age/Sex: 58/F Req #: [id number] Adm Physician: Ordered by: BRITTNEY MARTE MD Report #: [id number] Location: MRI Room/Bed: Procedure: [id number] MG/MAMMOGRAPHY DIGITAL SCR BILAT Exam Date: 06/23/18 Exam Time: [address] ATUS: Signed #[id number] - MGSCRBIL #BILATERAL DIGITAL SCREENING MAMM OGRAM WITH CAD: 06/23/2018 CLINICAL: Routine screening. Comparison is ma de to exams dated: 04/06/2017 mammogram, 03/04/2016 mammogram and 02/21/2016 mammo gram - [facility]. There are scattered fibrogland ular elements in [...] the results. Remberto Chung M.D. ks/:06/28/2018 10:29:26 Solar Sales Assessor: Corrine DIMAS(R)(Vijay), [facility] letter sent: Norm al Exam Mammogram BI-RADS: 2 Benign Dictated By: ANA MARÍA ONEILL MD Adriana ctronically Signed By: ANA MARÍA ONEILL MD on 06/28/18 1029 Transcribed By: JANIS MOSER on 06/28/18 1029 COPY TO: BRITTNEY MARTE MD Bedside Glucose 2018-03-21 19:26:00* Test Item Value Reference Range Interpretation Comments Bedside Glucose (test code = 03582-9) 108 70-120 Meter ID: [id number] Memorial HospitalBacteria identification in wound by hdzmbkq9912-61-53 10:52:00* Test Item Value Reference Range Interpretation Comments Wound Culture (test code = 6462-6) Organism: ENTEROCOCCUS FAECALIS [facility] HospitalBlood Tdqcdga9938-52-04 06:05:00* Test Item Value Reference Range Interpretation Comments Blood Culture (test code = 09048152) NO GROWTH AFTER 48 HOURS [facility] HospitalDifferential Total Cells Counted 2018-03-19 09:23:00* Test Item Value Reference Range Interpretation Comments Differential Total Cells Counted (test code = Differen tial Total Cells Counted) 100 [facility] HospitalNeutrophils % (Manual)2018-03-19 09:23:00 * Test Item Value Reference Range Interpretation Comments Neutrophils % (Manual) (test code = 32981-6) 87 40-74 H [facility] HospitalLymphocytes % (Manual)2018-03-19 09:23:00 * Test Item Value Reference Range Interpretation Comments Lymphocytes % (Manual) (test code = 737-7) 10 19-48 L [facility] HospitalMonocytes % (Manual)2018-03-19 09:23:00* Test Item Value Reference Range Interpretation Comments Monocytes % (Manual) (test code = 744-3) 2 3.4-9.0 L [facility] HospitalEosinophils % (Manual)2018-03-19 09:23:00 * Test Item Value Reference Range Interpretation Comments Eosinophils % (Manual) (test code = 714-6) 1 0-7 [facility] HospitalPlatelet Qucbydwc2907-94-61 09:23:00* Test Item Value Reference Range Interpretation Comments Platelet Estimate (test code = 63306-0) ADEQUATE [facility] HospitalPlatelet Morphology Ymyhjsf6734-84-43 09:23:00* Test Item Value Reference Range Interpretation Comments Platelet Morphology Comment (test code = 03891-5) NORMAL [facility] HospitalRed Cell Morphology Vwlwszo3329-95-11 09:23:00* Test Item Value Reference Range Interpretation Comments Red Cell Morphology Comment (test code = 6742-1) NORMAL [facility] Fpedr0530-54-32 06:47:00* Test Item Value Reference Range Interpretation Comments Sodium Level (test code = 2951-2) 136 136-145 [facility] HospitalPotassium Almax6107-76-95 06:47:00* Test Item Value Reference Range Interpretation Comments Potassium Level (test code = 2823-3) 3.7 3.5-5.1 [facility] HospitalChloride Xphyb1389-97-62 06:47:00* Test Item Value Reference Range Interpretation Comments Chloride Level (test code = 2075-0) 97 98-107 L [facility] HospitalCarbon Dioxide Otwyo3529-62-17 06:47:00* Test Item Value Reference Range Interpretation Comments Carbon Dioxide Level (test code = 2028-9) 25 22-29 [facility] HospitalAnion Gzs6869-59-83 06:47:00* Test Item Value Reference Range Interpretation Comments Anion Gap (test code = 94688-0) 17.7 8-16 H [facility] HospitalBlood Urea Pfgdbiqt0960-97-97 06:47:00* Test Item Value Reference Range Interpretation Comments Blood Urea Nitrogen (test code = 3094-0) 27 7-26 H [facility] HospitalCreatinine2018-05-26 06:47:00* Test Item Value Reference Range Interpretation Comments Creatinine (test code = 2160-0) 3.54 0.57-1.11 H [facility] HospitalBUN/Creatinine Ycacv6414-07-22 06:47:00* Test Item Value Reference Range Interpretation Comments BUN/Creatinine Ratio (test code = 3097-3) 8 6-25 [facility] HospitalEstimat Glomerular Filtration Rate 2018-03-19 06:47:00* Test Item Value Reference Range Interpretation Comments Estimat Glomerular Filtration Rate (test code = 27699-7) 13 >60 L Ranges were taken from the National Kidney Disease Education Program and the [facility] [employer] literature.Reference ranges:60 or greater: Jelakl07-62 ( for 3 consecutive months): Chronic kidney disease 15 or less: Kidney failureNacogdoches Memorial HospitalGlucose Rhqbl1909-58-60 06:47:00* Test Item Value Reference Range Interpretation Comments Glucose Level (test code = UJV9451) 101 74-118 [facility] HospitalCalcium Rmatw4061-43-28 06:47:00* Test Item Value Reference Range Interpretation Comments Calcium Level (test code = 27801-2) 9.2 8.4-10.2 [facility] HospitalTotal Ioymypiug2843-59-98 06:47:00* Test Item Value Reference Range Interpretation Comments Total Bilirubin (test code = 1975-2) 0.3 0.2-1.2 [facility] HospitalAspartate Amino Transf (AST/SGOT) 2018-03-19 06:47:00* Test Item Value Reference Range Interpretation Comments Aspartate Amino Transf (AST/SGOT) (test code = Aspartate Amino Transf (AST/SGOT)) 11 5-34 [facility] HospitalAlanine Aminotransferase (ALT/SGPT) 2018-03-19 06:47:00* Test Item Value Reference Range Interpretation Comments Alanine Aminotransferase (ALT/SGPT) (test code = 1742-6) 7 0-55 [facility] HospitalTotal Qldqgmn7911-01-24 06:47:00* Test Item Value Reference Range Interpretation Comments Total Protein (test code = 2885-2) 7.2 6.5-8.1 [facility] HospitalAlbumin2018-05-[facility] 06:47:00* Test Item Value Reference Range Interpretation Comments Albumin (test code = 1751-7) 2.8 3.5-5.0 L [facility] HospitalGlobulin2018-05-26 06:47:00* Test Item Value Reference Range Interpretation Comments Globulin (test code = 43429-3) 4.4 2.3-3.5 H [facility] HospitalAlbumin/Globulin Hzqic3034-41-97 06:47:00 * Test Item Value Reference Range Interpretation Comments Albumin/Globulin Ratio (test code = 1759-0) 0.6 0.8-2.0 L [facility] HospitalAlkaline Fjobslzaqvz0422-20-98 06:47:00* Test Item Value Reference Range Interpretation Comments Alkaline Phosphatase (test code = 6768-6) 160 40-150 H [facility] HospitalWhite Blood Xsude3595-97-05 06:12:00* Test Item Value Reference Range Interpretation Comments White Blood Count (test code = 6690-2) 10.42 4.8-10.8 [facility] HospitalRed Blood Tssqi6775-58-57 06:12:00* Test Item Value Reference Range Interpretation Comments Red Blood Count (test code = 789-8) 2.80 3.6-5.1 L [facility] HospitalHemoglobin2018-05-26 06:12:00* Test Item Value Reference Range Interpretation Comments Hemoglobin (test code = 96248-3) 8.9 12.0-16.0 L [facility] HospitalHematocrit2018-05-26 06:12:00* Test Item Value Reference Range Interpretation Comments Hematocrit (test code = 4544-3) 28.4 34.2-44.1 L [facility] HospitalMean Corpuscular Xurvwk5768-71-71 06:12:00* Test Item Value Reference Range Interpretation Comments Mean Corpuscular Volume (test code = 787-2) 101.4 81-99 H [facility] HospitalMean Corpuscular Rtujlyxbpk5983-82-83 06:12:00* Test Item Value Reference Range Interpretation Comments Mean Corpuscular Hemoglobin (test code = 785-6) 31.8 28-32 [facility] HospitalMean Corpuscular Hemoglobin Concent 2018-03-19 06:12:00* Test Item Value Reference Range Interpretation Comments Mean Corpuscular Hemoglobin Concent (test code = 786-4) 31.3 31-35 [facility] HospitalRed Cell Distribution Ocvei7807-28-81 06:12:00* Test Item Value Reference Range Interpretation Comments Red Cell Distribution Width (test code = 38189-4) 14.3 11.7 -14.4 [facility] HospitalPlatelet Cepcq1627-10-08 06:12:00* Test Item Value Reference Range Interpretation Comments Platelet Count (test code = 777-3) 183 140-360 [facility] HospitalNeutrophils (%) (Auto)2018-03-19 06:12:00 * Test Item Value Reference Range Interpretation Comments Neutrophils (%) (Auto) (test code = 06538-0) 78.9 38.7-80.0 [facility] HospitalLymphocytes (%) (Auto)2018-03-19 06:12:00 * Test Item Value Reference Range Interpretation Comments Lymphocytes (%) (Auto) (test code = 736-9) 7.7 18.0-39.1 L [facility] HospitalMonocytes (%) (Auto)2018-03-19 06:12:00* Test Item Value Reference Range Interpretation Comments Monocytes (%) (Auto) (test code = 5905-5) 9.1 4.4-11.3 [facility] HospitalEosinophils (%) (Auto)2018-03-19 06:12:00 * Test Item Value Reference Range Interpretation Comments Eosinophils (%) (Auto) (test code = 713-8) 2.0 0.0-6.0 [facility] HospitalBasophils (%) (Auto)2018-03-19 06:12:00* Test Item Value Reference Range Interpretation Comments Basophils (%) (Auto) (test code = 706-2) 0.2 0.0-1.0 [facility] HospitalIM GRANULOCYTES %2018-03-19 06:12:00* Test Item Value Reference Range Interpretation Comments IM GRANULOCYTES % (test code = IM GRANULOCYTES %) 2.1 0.0- 1.0 H [facility] HospitalNeutrophils # (Auto)2018-03-19 06:12:00* Test Item Value Reference Range Interpretation Comments Neutrophils # (Auto) (test code = 751-8) 8.2 2.1-6.9 H [facility] HospitalLymphocytes # (Auto)2018-03-19 06:12:00* Test Item Value Reference Range Interpretation Comments Lymphocytes # (Auto) (test code = 20109-4) 0.8 1.0-3.2 L [facility] HospitalMonocytes # (Auto)2018-03-19 06:12:00* Test Item Value Reference Range Interpretation Comments Monocytes # (Auto) (test code = 742-7) 1.0 0.2-0.8 H [facility] HospitalEosinophils # (Auto)2018-03-19 06:12:00* Test Item Value Reference Range Interpretation Comments Eosinophils # (Auto) (test code = 711-2) 0.2 0.0-0.4 [facility] HospitalBasophils # (Auto)2018-03-19 06:12:00* Test Item Value Reference Range Interpretation Comments Basophils # (Auto) (test code = 704-7) 0.0 0.0-0.1 [facility] HospitalAbsolute Immature Granulocyte (auto 2018-03-19 06:12:00* Test Item Value Reference Range Interpretation Comments Absolute Immature Granulocyte (auto (khoi t code = Absolute Immature Granulocyte (auto) 0.22 0-0.1 H [facility] HospitalActivated Partial Thromboplast Time 2018-02-17 06:46:00* Test Item Value Reference Range Interpretation Comments Activated Partial Thromboplast Time (test code = 67033-3) 35.4 23.8-35.5 [facility] HospitalProthrombin Whyw1206-68-54 06:45:00* Test Item Value Reference Range Interpretation Comments Prothrombin Time (test code = 5902-2) 13.9 11.9-14.5 [facility] HospitalProthromb Time International Ratio 2018-02-17 06:45:00* Test Item Value Reference Range Interpretation Comments Prothromb Time International Ratio (test code = 6301-6) 1.16 Oral Anticoagulant Therapy INR Values:1. Low Intensity Therapy 1.5 - 2.02 . Moderate Intensity Therapy 2.0 - 3.03. High Intensity Therapy(1) 2.5 - 3. 54. High Intensity Therapy(2) 3.0 - 4.05. Panic Value INR > 5.0 [facility] Niuqhiy7352-03-48 16:40:00* Test Item Value Reference Range Interpretation Comments Bedside Glucose (test code = 61148-9) 148 70-120 H Meter ID: [id number] Glucose 2017-12-24 16:40:00* Test Item Value Reference Range Interpretation Comments Bedside Glucose (test code = 34155-9) 148 70-120 H Meter ID: [id number] Memorial HospitalHepatitis B Surface Antibody, Sfhlz5651-13-29 12:55:00* Test Item Value Reference Range Interpretation Comments Hepatitis B Surface Antibody, Quant (test code = 5194-6) 9.2 Immunity>9.9 L Verified by repeat analysis Status of Immunity Anti-HBs Level Inconsistent with I mmunity 0.0 - 9.9Consistent with Immunity >9.9[facility] B Core Total Antibody 2017-12-24 12:55:00* Test Item Value Reference Range Interpretation Comments Hepatitis B Core Total Antibody (test code = 63779-4) Negative Negative Performed at: - [facility] [id number] Director: Kenny Garcia MD, Phone: [phone] [facility] B Surface Gymqvug5889-49-64 12:55:00* Test Item Value Reference Range Interpretation Comments Hepatitis B Surface Antigen (test code = 5196-1) Negative Negat sue [facility] B Surface Antibody, Quant 2017-12-24 12:55:00* Test Item Value Reference Range Interpretation Comments Hepatitis B Surface Antibody, Quant (test code = 5194-6) 9.2 Immunity>9.9 L Verified by repeat analysis Status of Immunity Anti-HBs Level Inconsistent with I mmunity 0.0 - 9.9Consistent with Immunity >9.9[facility] B Core Total Antibody 2017-12-24 12:55:00* Test Item Value Reference Range Interpretation Comments Hepatitis B Core Total Antibody (test code = 53091-2) Negative Negative Performed at: [facility] [id number] Director: Kenny Garcia MD, Phone: [phone] [facility] B Surface Frgqeqx5065-00-25 12:55:00* Test Item Value Reference Range Interpretation Comments Hepatitis B Surface Antigen (test code = 5196-1) Negative Negat sue [facility] B Surface Antibody, Quant 2017-12-24 12:55:00* Test Item Value Reference Range Interpretation Comments Hepatitis B Surface Antibody, Quant (test code = 5194-6) 9.2 Immunity>9.9 L Verified by repeat analysis Status of Immunity Anti-HBs Level Inconsistent with I mmunity 0.0 - 9.9Consistent with Immunity >9.9[facility] Total Antibody 2017-12-24 12:55:00* Test Item Value Reference Range Interpretation Comments Hepatitis B Core Total Antibody (test code = 44705-8) Negative Negative Performed at: [employer] [id number] Director: Kenny Garcia MD, Phone: [phone] [facility] HospitalHesierra vista hospital B Surface Ngkwosj7704-16-25 12:55:00* Test Item Value Reference Range Interpretation Comments Hepatitis B Surface Antigen (test code = 5196-1) Negative Negat sue [facility] HospitalParathyroid Reqxsnj6091-66-56 07:39:00* Test Item Value Reference Range Interpretation Comments Parathyroid Hormone (test code = 2731-8) 144 15-65 H [facility] HospitalCalcium (Send out)2017-12-24 07:39:00* Test Item Value Reference Range Interpretation Comments Calcium (Send out) (test code = 42311-4) 8.7 8.7-10.2 [facility] HospitalParathyroid Hormone Interpretation 2017-12-24 07:39:00* Test Item Value Reference Range Interpretation Comments Parathyroid Hormone Interpretation (test code = Parathyroid Hormone Interpretation) Comment . Interpretation Intact PTH Calcium (pg/mL) (mg/dL)Normal 15 - 65 8.6 - 10.2Pr imary Hyperparathyroidism >65 >10.2Secondary Hyperparathyroidism >65 <10.2Non-Parathyroid Hypercalcemia <65 >10.2Hypoparathyroidism <15 < 8.6Non- Parathyroid Hypocalcemia 15 - 65 < 8.6Performed at: [employer] [address] [id number] Director: Kenny Garcia MD, Phone: [phone] at: [facility] [employer] [id number] Director: Cem Nathan MD, Phone: [phone] [facility] HospitalParathyroid Hngaavr6799-66-47 07:39:00* Test Item Value Reference Range Interpretation Comments Parathyroid Hormone (test code = 2731-8) 144 15-65 H [facility] HospitalCalcium (Send out)2017-12-24 07:39:00* Test Item Value Reference Range Interpretation Comments Calcium (Send out) (test code = 78079-8) 8.7 8.7-10.2 [facility] HospitalParathyroid Hormone Interpretation 2017-12-24 07:39:00* Test Item Value Reference Range Interpretation Comments Parathyroid Hormone Interpretation (test code = Parathyroid Hormone Interpretation) Comment . Interpretation Intact PTH Calcium (pg/mL) (mg/dL)Normal 15 - 65 8.6 - 10.2Pr imary Hyperparathyroidism >65 >10.2Secondary Hyperparathyroidism >65 <10.2Non-Parathyroid Hypercalcemia <65 >10.2Hypoparathyroidism <15 < 8.6Non- Parathyroid Hypocalcemia 15 - 65 < 8.6Performed at: [facility] [employer] [id number] Director: Kenny Garcia MD, Phone: [phone] at: [facility] [employer] [id number] Director: Cem Nathan MD, Phone: [phone] [facility] HospitalParathyroid Blzzlfd0555-59-74 07:39:00* Test Item Value Reference Range Interpretation Comments Parathyroid Hormone (test code = 2731-8) 144 15-65 H [facility] HospitalCalcium (Send out)2017-12-24 07:39:00* Test Item Value Reference Range Interpretation Comments Calcium (Send out) (test code = 96279-2) 8.7 8.7-10.2 [facility] HospitalParathyroid Hormone Interpretation 2017-12-24 07:39:00* Test Item Value Reference Range Interpretation Comments Parathyroid Hormone Interpretation (test code = Parathyroid Hormone Interpretation) Comment . Interpretation Intact PTH Calcium (pg/mL) (mg/dL)Normal 15 - 65 8.6 - 10.2Pr imary Hyperparathyroidism >65 >10.2Secondary Hyperparathyroidism >65 <10.2Non-Parathyroid Hypercalcemia <65 >10.2Hypoparathyroidism <15 < 8.6Non- Parathyroid Hypocalcemia 15 - 65 < 8.6Performed at: [facility] [address] [place], [place] [id number] Director: Kenny Garcia MD, Phone: [phone] at: [facility] [address] [id number] Director: Cem Nathan MD, Phone: [phone] [facility] Hospitalodium Csbcq8092-43-40 06:48:00* Test Item Value Reference Range Interpretation Comments Sodium Level (test code = 2951-2) 141 136-145 [facility] HospitalPotassium Smumr4065-35-65 06:48:00* Test Item Value Reference Range Interpretation Comments Potassium Level (test code = 2823-3) 4.4 3.5-5.1 [facility] HospitalChloride Rpefi4865-77-95 06:48:00* Test Item Value Reference Range Interpretation Comments Chloride Level (test code = 2075-0) 97 98-107 L [facility] HospitalCarbon Dioxide Itnba2818-17-88 06:48:00* Test Item Value Reference Range Interpretation Comments Carbon Dioxide Level (test code = 2028-9) 32 22-29 H [facility] HospitalAnion Gfc6118-08-86 06:48:00* Test Item Value Reference Range Interpretation Comments Anion Gap (test code = 57016-3) 16.4 8-16 H [facility] HospitalBlood Urea Czixwwyn7849-40-80 06:48:00* Test Item Value Reference Range Interpretation Comments Blood Urea Nitrogen (test code = 3094-0) 19 7-26 [facility] HospitalCreatinine2018-03-02 06:48:00* Test Item Value Reference Range Interpretation Comments Creatinine (test code = 2160-0) 3.04 0.57-1.11 H [facility] HospitalBUN/Creatinine Fjrnk8787-54-84 06:48:00* Test Item Value Reference Range Interpretation Comments BUN/Creatinine Ratio (test code = 3097-3) 6 6-25 [facility] HospitalEstimat Glomerular Filtration Rate 2017-12-24 06:48:00* Test Item Value Reference Range Interpretation Comments Estimat Glomerular Filtration Rate (test code = 02616-4) 16 >60 L Ranges were taken from the National Kidney Disease Education Program and the [facility] literature.Reference ranges:60 or greater: Eqlrrg19-75 ( for 3 consecutive months): Chronic kidney disease 15 or less: Kidney failureCHI [facility] Healthcare NorthwestGlucose Bihmc2153-42-99 06:48:00* Test Item Value Reference Range Interpretation Comments Glucose Level (test code = PFE8942) 83 74-118 [facility] HospitalCalcium Sgufc4944-90-71 06:48:00* Test Item Value Reference Range Interpretation Comments Calcium Level (test code = 41667-4) 8.4 8.4-10.2 [facility] HospitalTotal Gekpioxqw5071-40-00 06:48:00* Test Item Value Reference Range Interpretation Comments Total Bilirubin (test code = 1975-2) 0.5 0.2-1.2 [facility] HospitalAspartate Amino Transf (AST/SGOT) 2017-12-24 06:48:00* Test Item Value Reference Range Interpretation Comments Aspartate Amino Transf (AST/SGOT) (test code = Aspartate Amino Transf (AST/SGOT)) 31 5-34 [facility] HospitalAlanine Aminotransferase (ALT/SGPT) 2017-12-24 06:48:00* Test Item Value Reference Range Interpretation Comments Alanine Aminotransferase (ALT/SGPT) (test code = 1742-6) 13 0-55 [facility] HospitalTotal Kztowfl0478-85-85 06:48:00* Test Item Value Reference Range Interpretation Comments Total Protein (test code = 2885-2) 7.3 6.5-8.1 [facility] HospitalAlbumin2018-03-02 06:48:00* Test Item Value Reference Range Interpretation Comments Albumin (test code = 1751-7) 3.1 3.5-5.0 L [facility] HospitalGlobulin2018-03-02 06:48:00* Test Item Value Reference Range Interpretation Comments Globulin (test code = 24853-4) 4.2 2.3-3.5 H [facility] HospitalAlbumin/Globulin Uknry2804-43-18 06:48:00 * Test Item Value Reference Range Interpretation Comments Albumin/Globulin Ratio (test code = 1759-0) 0.7 0.8-2.0 L [facility] HospitalAlkaline Jbtbagfakus9255-06-51 06:48:00* Test Item Value Reference Range Interpretation Comments Alkaline Phosphatase (test code = 6768-6) 147 40-150 [facility]odium Jzsjo0633-61-72 06:48:00* Test Item Value Reference Range Interpretation Comments Sodium Level (test code = 2951-2) 141 136-145 [facility] HospitalPotassium Bqiam2316-16-77 06:48:00* Test Item Value Reference Range Interpretation Comments Potassium Level (test code = 2823-3) 4.4 3.5-5.1 [facility] HospitalChloride Cdzbi5229-77-87 06:48:00* Test Item Value Reference Range Interpretation Comments Chloride Level (test code = 2075-0) 97 98-107 L [facility] HospitalCarbon Dioxide Cixhc8138-29-82 06:48:00* Test Item Value Reference Range Interpretation Comments Carbon Dioxide Level (test code = 2028-9) 32 22-29 H [facility] HospitalAnion Onw0487-83-04 06:48:00* Test Item Value Reference Range Interpretation Comments Anion Gap (test code = 05097-9) 16.4 8-16 H [facility] HospitalBlood Urea Pucexyqa2329-54-90 06:48:00* Test Item Value Reference Range Interpretation Comments Blood Urea Nitrogen (test code = 3094-0) 19 7-26 [facility] HospitalCreatinine2018-03-02 06:48:00* Test Item Value Reference Range Interpretation Comments Creatinine (test code = 2160-0) 3.04 0.57-1.11 H [facility] HospitalBUN/Creatinine Ywaos3220-09-10 06:48:00* Test Item Value Reference Range Interpretation Comments BUN/Creatinine Ratio (test code = 3097-3) 6 6-25 [facility] HospitalEstimat Glomerular Filtration Rate 2017-12-24 06:48:00* Test Item Value Reference Range Interpretation Comments Estimat Glomerular Filtration Rate (test code = 76201-6) 16 >60 L Ranges were taken from the National Kidney Disease Education Program and the [facility] literature.Reference ranges:60 or greater: Eiceht26-11 ( for 3 consecutive months): Chronic kidney disease 15 or less: Kidney failureNacogdoches Memorial HospitalGlucose Hgckc8061-66-35 06:48:00* Test Item Value Reference Range Interpretation Comments Glucose Level (test code = MNS0000) 83 74-118 [facility] HospitalCalcium Ksfda2627-81-94 06:48:00* Test Item Value Reference Range Interpretation Comments Calcium Level (test code = 26492-5) 8.4 8.4-10.2 [facility] HospitalTotal Oteybtttz6415-13-12 06:48:00* Test Item Value Reference Range Interpretation Comments Total Bilirubin (test code = 1975-2) 0.5 0.2-1.2 [facility] HospitalAspartate Amino Transf (AST/SGOT) 2017-12-24 06:48:00* Test Item Value Reference Range Interpretation Comments Aspartate Amino Transf (AST/SGOT) (test code = Aspartate Amino Transf (AST/SGOT)) 31 5-34 [facility] HospitalAlanine Aminotransferase (ALT/SGPT) 2017-12-24 06:48:00* Test Item Value Reference Range Interpretation Comments Alanine Aminotransferase (ALT/SGPT) (test code = 1742-6) 13 0-55 [facility] HospitalTotal Krojcyu1573-31-04 06:48:00* Test Item Value Reference Range Interpretation Comments Total Protein (test code = 2885-2) 7.3 6.5-8.1 [facility] HospitalAlbumin2018-03-02 06:48:00* Test Item Value Reference Range Interpretation Comments Albumin (test code = 1751-7) 3.1 3.5-5.0 L [facility] HospitalGlobulin2018-03-02 06:48:00* Test Item Value Reference Range Interpretation Comments Globulin (test code = 17256-8) 4.2 2.3-3.5 H [facility] HospitalAlbumin/Globulin Pbtps1208-49-60 06:48:00 * Test Item Value Reference Range Interpretation Comments Albumin/Globulin Ratio (test code = 1759-0) 0.7 0.8-2.0 L [facility] HospitalAlkaline Ewhbyfnbjrb7716-04-71 06:48:00* Test Item Value Reference Range Interpretation Comments Alkaline Phosphatase (test code = 6768-6) 147 40-150 [facility] HospitalPhosphorus Jbmim1995-00-44 05:25:00* Test Item Value Reference Range Interpretation Comments Phosphorus Level (test code = HZY7152) 3.3 2.3-4.7 [facility] HospitalPhosphorus Rdcva4363-96-14 05:25:00* Test Item Value Reference Range Interpretation Comments Phosphorus Level (test code = RKW7549) 3.3 2.3-4.7 [facility] HospitalPhosphorus Ecnvm2456-12-48 05:25:00* Test Item Value Reference Range Interpretation Comments Phosphorus Level (test code = WBX1172) 3.3 2.3-4.7 [facility] HospitalDifferential Total Cells Counted 2017-12-23 04:57:00* Test Item Value Reference Range Interpretation Comments Differential Total Cells Counted (test code = Differen tial Total Cells Counted) 100 [facility] HospitalNeutrophils % (Manual)2017-12-23 04:57:00 * Test Item Value Reference Range Interpretation Comments Neutrophils % (Manual) (test code = 39162-9) 78 40-74 H [facility] HospitalLymphocytes % (Manual)2017-12-23 04:57:00 * Test Item Value Reference Range Interpretation Comments Lymphocytes % (Manual) (test code = 737-7) 11 19-48 L [facility] HospitalMonocytes % (Manual)2017-12-23 04:57:00* Test Item Value Reference Range Interpretation Comments Monocytes % (Manual) (test code = 744-3) 7 3.4-9.0 [facility] HospitalEosinophils % (Manual)2017-12-23 04:57:00 * Test Item Value Reference Range Interpretation Comments Eosinophils % (Manual) (test code = 714-6) 4 0-7 [facility] HospitalPlatelet Eetezqdq9728-91-61 04:57:00* Test Item Value Reference Range Interpretation Comments Platelet Estimate (test code = 94201-3) ADEQUATE [facility] HospitalPlatelet Morphology Ewhlnfg7842-45-64 04:57:00* Test Item Value Reference Range Interpretation Comments Platelet Morphology Comment (test code = 06075-0) NORMAL [facility] HospitalAnisocytosis2018-03-01 04:57:00* Test Item Value Reference Range Interpretation Comments Anisocytosis (test code = 702-1) SLIGHT [facility] HospitalRed Cell Morphology Jtfwgqb1169-74-47 04:57:00* Test Item Value Reference Range Interpretation Comments Red Cell Morphology Comment (test code = 6742-1) NORMAL [facility] HospitalDifferential Total Cells Counted 2017-12-23 04:57:00* Test Item Value Reference Range Interpretation Comments Differential Total Cells Counted (test code = Differquincy tial Total Cells Counted) 100 [facility] HospitalNeutrophils % (Manual)2017-12-23 04:57:00 * Test Item Value Reference Range Interpretation Comments Neutrophils % (Manual) (test code = 13532-5) 78 40-74 H [facility] HospitalLymphocytes % (Manual)2017-12-23 04:57:00 * Test Item Value Reference Range Interpretation Comments Lymphocytes % (Manual) (test code = 737-7) 11 19-48 L [facility] HospitalMonocytes % (Manual)2017-12-23 04:57:00* Test Item Value Reference Range Interpretation Comments Monocytes % (Manual) (test code = 744-3) 7 3.4-9.0 [facility] HospitalEosinophils % (Manual)2017-12-23 04:57:00 * Test Item Value Reference Range Interpretation Comments Eosinophils % (Manual) (test code = 714-6) 4 0-7 [facility] HospitalPlatelet Hsmhjjgs2713-73-46 04:57:00* Test Item Value Reference Range Interpretation Comments Platelet Estimate (test code = 47454-7) ADEQUATE [facility] HospitalPlatelet Morphology Pejcjfd5053-44-66 04:57:00* Test Item Value Reference Range Interpretation Comments Platelet Morphology Comment (test code = 74923-4) NORMAL [facility] HospitalAnisocytosis2018-03-01 04:57:00* Test Item Value Reference Range Interpretation Comments Anisocytosis (test code = 702-1) SLIGHT [facility] HospitalRed Cell Morphology Pivlkdh8073-30-58 04:57:00* Test Item Value Reference Range Interpretation Comments Red Cell Morphology Comment (test code = 6742-1) NORMAL [facility] HospitalAnisocytosis2018-03-01 04:57:00* Test Item Value Reference Range Interpretation Comments Anisocytosis (test code = 702-1) SLIGHT [facility] HospitalWhite Blood Zugib7383-07-13 04:41:00* Test Item Value Reference Range Interpretation Comments White Blood Count (test code = 6690-2) 6.06 4.8-10.8 [facility] HospitalRed Blood Jauih1157-89-23 04:41:00* Test Item Value Reference Range Interpretation Comments Red Blood Count (test code = 789-8) 2.82 3.6-5.1 L [facility] HospitalHemoglobin2018-03-01 04:41:00* Test Item Value Reference Range Interpretation Comments Hemoglobin (test code = 18447-8) 9.1 12.0-16.0 L [facility] HospitalHematocrit2018-03-01 04:41:00* Test Item Value Reference Range Interpretation Comments Hematocrit (test code = 4544-3) 26.8 34.2-44.1 L [facility] HospitalMean Corpuscular Jgpwpc8990-43-11 04:41:00* Test Item Value Reference Range Interpretation Comments Mean Corpuscular Volume (test code = 787-2) 95.0 81-99 [facility] HospitalMean Corpuscular Lsfjhrrjlg2682-45-33 04:41:00* Test Item Value Reference Range Interpretation Comments Mean Corpuscular Hemoglobin (test code = 785-6) 32.3 28-32 H [facility] [facility] Hospital[facility] Hemoglobin Concent 2017-12-23 04:41:00* Test Item Value Reference Range Interpretation Comments Mean Corpuscular Hemoglobin Concent (test code = 786-4) 34.0 31-35 [facility]Red Cell Distribution Yerfs1735-29-26 04:41:00* Test Item Value Reference Range Interpretation Comments Red Cell Distribution Width (test code = 10427-4) 22.2 11.7 -14.4 H [facility] HospitalPlatelet Bpfbg8047-09-02 04:41:00* Test Item Value Reference Range Interpretation Comments Platelet Count (test code = 777-3) 140 140-360 [facility] HospitalNeutrophils (%) (Auto)2017-12-23 04:41:00 * Test Item Value Reference Range Interpretation Comments Neutrophils (%) (Auto) (test code = 72804-4) 79.0 38.7-80.0 [facility] HospitalLymphocytes (%) (Auto)2017-12-23 04:41:00 * Test Item Value Reference Range Interpretation Comments Lymphocytes (%) (Auto) (test code = 736-9) 7.1 18.0-39.1 L [facility] HospitalMonocytes (%) (Auto)2017-12-23 04:41:00* Test Item Value Reference Range Interpretation Comments Monocytes (%) (Auto) (test code = 5905-5) 10.4 4.4-11.3 [facility] HospitalEosinophils (%) (Auto)2017-12-23 04:41:00 * Test Item Value Reference Range Interpretation Comments Eosinophils (%) (Auto) (test code = 713-8) 2.0 0.0-6.0 [facility] HospitalBasophils (%) (Auto)2017-12-23 04:41:00* Test Item Value Reference Range Interpretation Comments Basophils (%) (Auto) (test code = 706-2) 0.2 0.0-1.0 [facility] HospitalIM GRANULOCYTES %2017-12-23 04:41:00* Test Item Value Reference Range Interpretation Comments IM GRANULOCYTES % (test code = IM GRANULOCYTES %) 1.3 0.0- 1.0 H [facility] HospitalNeutrophils # (Auto)2017-12-23 04:41:00* Test Item Value Reference Range Interpretation Comments Neutrophils # (Auto) (test code = 751-8) 4.8 2.1-6.9 [facility] HospitalLymphocytes # (Auto)2017-12-23 04:41:00* Test Item Value Reference Range Interpretation Comments Lymphocytes # (Auto) (test code = 48765-7) 0.4 1.0-3.2 L [facility] HospitalMonocytes # (Auto)2017-12-23 04:41:00* Test Item Value Reference Range Interpretation Comments Monocytes # (Auto) (test code = 742-7) 0.6 0.2-0.8 [facility] HospitalEosinophils # (Auto)2017-12-23 04:41:00* Test Item Value Reference Range Interpretation Comments Eosinophils # (Auto) (test code = 711-2) 0.1 0.0-0.4 [facility] HospitalBasophils # (Auto)2017-12-23 04:41:00* Test Item Value Reference Range Interpretation Comments Basophils # (Auto) (test code = 704-7) 0.0 0.0-0.1 [facility] HospitalAbsolute Immature Granulocyte (auto 2017-12-23 04:41:00* Test Item Value Reference Range Interpretation Comments Absolute Immature Granulocyte (auto (khoi t code = Absolute Immature Granulocyte (auto) 0.08 0-0.1 [facility] HospitalWhite Blood Nsmxe7492-83-51 04:41:00* Test Item Value Reference Range Interpretation Comments White Blood Count (test code = 6690-2) 6.06 4.8-10.8 [facility] HospitalRed Blood Tdtpf4491-06-97 04:41:00* Test Item Value Reference Range Interpretation Comments Red Blood Count (test code = 789-8) 2.82 3.6-5.1 L [facility] HospitalHemoglobin2018-03-01 04:41:00* Test Item Value Reference Range Interpretation Comments Hemoglobin (test code = 94478-7) 9.1 12.0-16.0 L [facility] HospitalHematocrit2018-03-01 04:41:00* Test Item Value Reference Range Interpretation Comments Hematocrit (test code = 4544-3) 26.8 34.2-44.1 L [facility] HospitalMean Corpuscular Emxwrc6018-07-63 04:41:00* Test Item Value Reference Range Interpretation Comments Mean Corpuscular Volume (test code = 787-2) 95.0 81-99 [facility] HospitalMean Corpuscular Wyddlvelrj5804-85-61 04:41:00* Test Item Value Reference Range Interpretation Comments Mean Corpuscular Hemoglobin (test code = 785-6) 32.3 28-32 H [facility] HospitalMean Corpuscular Hemoglobin Concent 2017-12-23 04:41:00* Test Item Value Reference Range Interpretation Comments Mean Corpuscular Hemoglobin Concent (test code = 786-4) 34.0 31-35 [facility] HospitalRed Cell Distribution Ofacl4360-14-01 04:41:00* Test Item Value Reference Range Interpretation Comments Red Cell Distribution Width (test code = 69407-2) 22.2 11.7 -14.4 [facility] HospitalPlatelet Ekfte6832-59-54 04:41:00* Test Item Value Reference Range Interpretation Comments Platelet Count (test code = 777-3) 140 140-360 [facility] HospitalNeutrophils (%) (Auto)2017-12-23 04:41:00 * Test Item Value Reference Range Interpretation Comments Neutrophils (%) (Auto) (test code = 94796-7) 79.0 38.7-80.0 [facility] HospitalLymphocytes (%) (Auto)2017-12-23 04:41:00 * Test Item Value Reference Range Interpretation Comments Lymphocytes (%) (Auto) (test code = 736-9) 7.1 18.0-39.1 L [facility] HospitalMonocytes (%) (Auto)2017-12-23 04:41:00* Test Item Value Reference Range Interpretation Comments Monocytes (%) (Auto) (test code = 5905-5) 10.4 4.4-11.3 [facility] HospitalEosinophils (%) (Auto)2017-12-23 04:41:00 * Test Item Value Reference Range Interpretation Comments Eosinophils (%) (Auto) (test code = 713-8) 2.0 0.0-6.0 [facility] HospitalBasophils (%) (Auto)2017-12-23 04:41:00* Test Item Value Reference Range Interpretation Comments Basophils (%) (Auto) (test code = 706-2) 0.2 0.0-1.0 [facility] HospitalIM GRANULOCYTES %2017-12-23 04:41:00* Test Item Value Reference Range Interpretation Comments IM GRANULOCYTES % (test code = IM GRANULOCYTES %) 1.3 0.0- 1.0 H [facility] HospitalNeutrophils # (Auto)2017-12-23 04:41:00* Test Item Value Reference Range Interpretation Comments Neutrophils # (Auto) (test code = 751-8) 4.8 2.1-6.9 [facility] HospitalLymphocytes # (Auto)2017-12-23 04:41:00* Test Item Value Reference Range Interpretation Comments Lymphocytes # (Auto) (test code = 12991-7) 0.4 1.0-3.2 L [facility] HospitalMonocytes # (Auto)2017-12-23 04:41:00* Test Item Value Reference Range Interpretation Comments Monocytes # (Auto) (test code = 742-7) 0.6 0.2-0.8 [facility] HospitalEosinophils # (Auto)2017-12-23 04:41:00* Test Item Value Reference Range Interpretation Comments Eosinophils # (Auto) (test code = 711-2) 0.1 0.0-0.4 [facility] HospitalBasophils # (Auto)2017-12-23 04:41:00* Test Item Value Reference Range Interpretation Comments Basophils # (Auto) (test code = 704-7) 0.0 0.0-0.1 [facility] HospitalAbsolute Immature Granulocyte (auto 2017-12-23 04:41:00* Test Item Value Reference Range Interpretation Comments Absolute Immature Granulocyte (auto (khoi t code = Absolute Immature Granulocyte (auto) 0.08 0-0.1 [facility] HospitalCreatine Kinase OU4049-93-36 13:03:00* Test Item Value Reference Range Interpretation Comments Creatine Kinase MB (test code = 73476-1) 1.20 0-5.0 [place] [address]2018-02-28 13:03:00* Test Item Value Reference Range Interpretation Comments Troponin I (test code = UUY9151) -0.001 0-0.300 [facility] HospitalCreatine Kinase GQ1892-98-84 13:03:00* Test Item Value Reference Range Interpretation Comments Creatine Kinase MB (test code = 39519-4) 1.20 0-5.0 [place] [address]2018-02-28 13:03:00* Test Item Value Reference Range Interpretation Comments Troponin I (test code = SCP7835) -0.001 0-0.300 [facility] HospitalCreatine Kinase ND5989-27-01 13:03:00* Test Item Value Reference Range Interpretation Comments Creatine Kinase MB (test code = 83247-1) 1.20 0-5.0 [place] [address]2018-02-28 13:03:00* Test Item Value Reference Range Interpretation Comments Troponin I (test code = HGM0295) -0.001 0-0.300 [facility] HospitalCreatine Kzdqvq6926-10-79 12:54:00* Test Item Value Reference Range Interpretation Comments Creatine Kinase (test code = 2157-6) 46 [facility] HospitalCreatine Aihyyu2774-33-00 12:54:00* Test Item Value Reference Range Interpretation Comments Creatine Kinase (test code = 2157-6) 46 168 [facility] HospitalCreatine Dmknmz0404-82-00 12:54:00* Test Item Value Reference Range Interpretation Comments Creatine Kinase (test code = 2157-6) 46 168 [facility]CT [facility] [address] [place] [address] Patient Name: TAI GRANT MR #: [id number] : 1960 Age/Sex: 57/F Req #: [id number] Adm Physician: SAMUEL MARINO MD Ordered by: SAMUEL MARINO MD Report #: [id number] Location: MED/SURG2 Room/Bed: [facility] Procedure: 9394-9599 CT/ CT BRAIN WO Exam Date: 03/20/18 [...] 1:38 PM Dictated By: VILLA MCGARRY MD 37 T ranscribed By: ROBI on 03/20/181337 COPY TO: SAMUEL MARINO MD CHEST SINGLE (PORTABLE) [place] [address] Patient Name: TAI GRANT MR #: [id number] : 1960 Age/Sex: 57/F Req #: [id number] Adm Physician: SAMUEL MARINO MD Ordered by: SAMUEL MARINO MD Report #: [id number] Location: [facility] Room/Bed: [place] [address] Procedure: 8497-2863 DX/ CHEST SINGLE (PORTABLE) Exam Date: Exam [...] 1:54 PM Dictated By: STEVEN BELTRAN MD 1354 Transcribed By: SHANI LARKIN on 03/19/181353 COPY TO: SAMUEL MARINO MD ANKLE 3 + VIEWS RIGHT [place] [address] Patient Name: TAI GRANT MR #: [id number] : 1960 Age/Sex: 57/F Req #: [id number] Adm Physician: Ordered by: FARAZ BUSTILLO MD Report #: [id number] Location: ER Room/Bed: Procedure: [id number] DX/ANKLE 3 + VIEWS RIGHT Exam Date: 03/19/18 Exam Time: [address] ATUS: Signed EXAM: ANKLE 3 + VIEWS RIGHT, AP, lateral and oblique INDICATIO N: Huge wound on back of ankle COMPARISON: None FINDINGS: BONES: No acute fractures. JOINTS: No malalignment. SOFT TISSUES: Soft tissu e swelling of the ankle. Soft tissue defect posterior to the Achilles tendon. IMPRESSION: No radiographic evidence of osteomyelitis. Signed by: Dr. Cj Stack M.D. on 03/19/2018 6:36 AM Dictated By: CJ OLEA MD Transcribed By: ROBI on 03/19/1860 COPY TO: FARAZ BUSTILLO MD CHEST [address], [place], [place] [address] Patient Name: TAI GRANT MR #: [id number] : 1960 Age/Sex: 57/F Req #: [id number] Adm Physician: Ordered by: JASPREET JEREZ MD, MD Report #: [id number] Location: [facility] Room/Bed: Procedure: 2860-7128 DX/CHEST 2 VIEWS Exam D ate: Exam [...] TO: JASPREET JEREZ MRI ANKLE RIGHT WO [place] [address] Patient Name: TAI GRANT MR #: [id number] : 1960 Age/Sex: 57/F Req #: [id number] Adm Physician: Ordered by: ADRIENNE VALLES MD Report #: [id number] Location: MRI Room/Bed: Procedure: 8134-9937 MRI/MRI ANKLE RIGHT WO Ex am Date: [...] TO: ADRIENNE VALLES MD CT BRAIN WO [place] [address] Patient Name: TAI GRANT MR #: [id number] : 1960 Age/Sex: 57/F Req #: [id number] Adm Physician: Ordered by: LEONIE REILLY MD Report #: [id number] Location: Room/Bed: Procedure: 2440-5271 CT/CT BRAIN WO Exam Date: 12/24 01/09 [...] changes. Parenchyma: No abnormal density. No ac jackson hemorrhage, mass or acute major vascular territorial [...] No intracranial abnormality. Signed by: Dr. Harvey Mena M.D. on 01/15/2018 1:08 AM Dictated By: HARVEY MENA MD 7 Trans cribed By: ROBI on 01/15/18107 COPY TO: LEONIE REILLY MD CT CERVICAL SPINE WO [place] [address] Patient Name: TAI GRANT MR #: [id number] : 1960 Age/Sex: 57/F Req #: [id number] Adm Physician: Ordered by: LEONIE REILLY MD Report #: [id number] Location: ER Room/Bed: Procedure: 8581-5216 CT/CT CERVICAL SPINE WO Exam D ate: [...] of this examination. Signed by: Dr. Finn Mena M.D. on 01/15/2018 1:09 AM Dictated By: HARVEY MENA MD E lectronically Signed By: HARVEY MENA MD on 01/15/18108 Transcribed By: GREG GARCIA on 01/15/18108 COPY TO: LEONIE REILLY MD ANKLE 3 + VIEWS RIGHT [place] [address] Patient Name: TAI GRANT MR #: [id number] : 1960 Age/Sex: 57/F Req #: [id number] Adm Physician: Ordered by: LEONIE REILLY MD Report #: [id number] Location: ER Room/Bed: Procedure: 7637-3587 DX/ANKLE 3 + VIEWS RIGHT Exam Date: 01/14/18 Exam Time: 2345 REPORT STATUS: [place] TAI GRANT D 1960 DATE OF EXAM: 01/15/2018 EXA M: Right ankle x-ray, AP, lateral and oblique INDICATION: Fall right ankle riana n COMPARISON: None FINDINGS: BONES: No acute fractures. JOINTS: No malalignment. SOFT TISSUES: Soft tissue swelling of the ankle IMPRESSION: Soft tissue swelling of the right ankle without underlying fractur e. Dictated by Dr. Stack January 15, 2018 at 1226 hours. Signed by: Dr. Cj Stack M.D. on 01/15/2018 1:15 AM Dictated By: CJ OLEA MD 4 Transcribed By: ROBI on 01/15/18114 COPY TO: LEONIE REILLY MD ANKLE 3+ VIEWS LEFT [place] [address] Patient Name: TAI GRANT MR #: [id number] : 1960 Age/Sex: 57/F Req #: [id number] Adm Physician: Ordered by: VICKY CABALLERO DPM Report #: [id number] Location: RAD Room/Bed: Procedure: 7741-2267 DX/ANKLE 3+ VIEWS LEFT Exa m Date: [...] TO: VICKY CABALLERO DPM CHEST SINGLE (PORTABLE) [place] [address] Patient Name: TAI GRANT MR #: [id number] : 1960 Age/Sex: 57/F Req #: [id number] Adm Physician: SAMUEL MARINO MD Ordered by: SAMUEL MARINO MD Report #: [id number] Location: [facility] Room/Bed: [place] [address] Procedure: [id number] DX/ CHEST SINGLE (PORTABLE) Exam Date: 12/23/17 [...] acute thoracic abno rmality. Signed by: Dr. Cj Stack M.D. on 12/23/2017 5:09 AM Dictated By: CJ STACK MD 8 Transcribed By: ROBI on 12/23/17508 COPY TO: SAMUEL MARINO MD CHEST SINGLE (PORTABLE) [place] [address] Patient Name: TAI GRANT MR #: [id number] : 1960 Age/Sex: 57/F Req #: [id number] Adm Physician: Ordered by: WELLINGTON CALDWELL SPA MANAGER/ESTHETICIAN Report #: [id number] Location: ER Room/Bed: Procedure: 9725-3294 DX/CHEST SINGLE (PORTABLE) E xam Date: 12/22/17 [...] on 12/22/17 1210 COPY TO: WELLINGTON CALDWELL SPA MANAGER/ESTHETICIAN ANKLE 3+ VIEWS LEFT [place] [address] Patient Name: TAI GRANT MR #: [id number] : 1960 Age/Sex: 57/F Req #: [id number] Adm Physician: Ordered by: VICKY CABALLERO DPM Report #: [id number] Location: [facility] Room/Bed: Procedure: [id number] DX/ANKLE 3+ VIEWS LEFT Exa m Date: [...] VICKY CABALLERO DPM ANKLE 3+ VIEWS LEFT [place] [address] Patient Name: TAI GRANT MR #: [id number] : 1960 Age/Sex: 57/F Req #: [id number] Adm Physician: Ordered by: VICKY CABALLERO DPM Report #: [id number] Location: [facility] Room/Bed: Procedure: [id number] DX/ANKLE 3+ VIEWS LEFT Exa m Date: [...] VICKY CARLOS DPM ANKLE 3+ VIEWS LEFT [place] [address] Patient Name: TAI GRANT MR #: [id number] : 1960 Age/Sex: 57/F Req #: [id number] Adm Physician: Ordered by: VICKY CABALLERO DPM Report #: [id number] Location: [facility] Room/Bed: Procedure: 9728-0999 DX/ANKLE 3+ VIEWS LEFT Exa m Date: [...] TO: VICKY CABALLERO DPM ANKLE COMPLETE BILATERAL [facility] [address] [place] [address] Patient Name: TAI GRANT MR #: [id number] : 1960 Age/Sex: 57/F Req #: [id number] Adm Physician: Ordered by: VICKY CABALLERO DPM Report #: [id number] Location: [facility] Room/Bed: Procedure: [id number] DX/ANKLE COMPLETE BILATERAL Exam Date: 08/27/17 Exam [...] t 13:27 Dictated By: JACE MOON MD 26 Transcribed By: EVELYNE on 08/27/177 COPY TO: VICKY CABALLERO DPM CHEST 2 VIEWS [place] [address] Patient Name: TAI GRANT MR #: [id number] : 1960 Age/Sex: 57/F Req #: [id number] Adm Physician: Ordered by: FARAZ BUSTILLO MD Report #: [id number] Location: ER Room/Bed: Procedure: [id number] DX/CHEST 2 VIEWS Exam D ate: 06/21/17 Exam Time: 1936 REPORT STATUS: Si gned EXAM: Chest x-ray [...] PM Dictated By: CJ STACK MD 57 COPY TO: FARAZ BUSTILLO MD SP LUMBAR, COMPLETE MIN 4VW [place] [address] Patient Name: TAI GRANT MR #: [id number] : 1960 Age/Sex: 57/F Req #: [id number] Adm Physician: Ordered by: MERI LEE, JASPREET Ron MD Report #: [id number] Location: RAD Room/Bed: Procedure: 9378-0141 DX/SP LUMBAR, COMPLETE M IN 4VW Exam Date: 06/15/17 Exam Time: 913 REP ORT STATUS: Signed PROCEDURE: SP LUMBAR, COMPLETE MIN 4VW TECHNIQUE: AP , lateral, coned-down lateral and bilateral oblique views lumbar spine. IND ICATION: Low back pain COMPARISON: [facility], CT, CT ABDOMEN /PELVIS W, 06/18/2016, 9:43. [facility], DX, LUMBAR 3 VIEW, , 21:59. FINDINGS: 5 iky-rkx-vkbikic lumbar vertebral bodies. Ve rtebral body height [...] Danni Nathan M.D. on 06/15/2017 at 10:04 Electronically approved by: Danni Nathan M.D. on 06/15/2017 at 10:04 Dictated By: DANNI NATHAN MD 1004 Transcribed By: EVELYNE on 06/15/17 1004 COPY TO: JASPREET JEREZ
[2020-07-08 10:20] LABS: BASOPHILS % 0.6 % (0.0-1.0); EOSINOPHILS # (AUTO) 0.1 (0.0-0.4); EOSINOPHILS % 1.2 % (0.0-6.0); HEMATOCRIT 35.4 % (34.2-44.1); HEMOGLOBIN 10.9 g/dL (12.0-16.0); LYMPHOCYTES # (AUTO) 0.7 (1.0-3.2); LYMPHOCYTES % 14.5 % (18.0-39.1); MEAN CORPUSCULAR HEMOGLOBIN 31.2 pg (28-32); MEAN CORPUSCULAR HGB CONC 30.8 g/dL (31-35); MEAN CORPUSCULAR VOLUME 101.4 fL (81-99); MONOCYTES # (AUTO) 0.7 (0.2-0.8); MONOCYTES % 13.1 % (4.4-11.3); NEUTROPHILS # (AUTO) 3.5 (2.1-6.9); NEUTROPHILS % 69.6 % (38.7-80.0); PLATELET COUNT 162 x10e3/uL (140-360); RED BLOOD COUNT 3.49 x10e6/uL (3.6-5.1); RED CELL DISTRIBUTION WIDTH 15.2 % (11.7-14.4)
[2020-07-08] MEDS ORDERED: MORPHINE SULFATE INJ 4 MG/ML INJ 1ML IV STA ×2 (10:26→12:56)
[2020-07-08] MEDS ORDERED: ONDANSETRON HCL INJ 2MG/ML 2ML 2 MG/ML VIAL IV STA ×2 (10:26→12:56)
[2020-07-08 10:42] LABS: ALBUMIN 3.8 g/dL (3.5-5.0); ALBUMIN/GLOBULIN RATIO 1.3 (0.8-2.0); ANION GAP 19.9 mmol/L (8-16); CALCIUM 8.9 mg/dL (8.4-10.2); CREATININE, SERUM 7.54 mg/dL (0.57-1.11)
[2020-07-08 10:45] LABS: POTASSIUM 5.9 mmol/L (3.5-5.1)
--- NOTE | 2020-07-08 11:11 | Diagnostic Imaging Report ---
Left femur, 2 views INDICATION: ^left arm pain ^[id number] ^1040 Comparison: None available. Discussion: Negative for grossly displaced fracture of the left femur. Partially visualized shoulder and elbow joints appear to be in anatomic alignment. A few surgical clips identified within the anterior soft tissues of the antecubital fossa. Soft tissues are otherwise unremarkable. Partially visualized lung parenchyma demonstrates prominent interstitial markings, likely related to expiratory phase imaging. IMPRESSION: Negative for acute displaced fracture of the left humerus. Signed by: Edilson Worthington MD on 07/08/2020 11:08 AM
[2020-07-08] MEDS ORDERED: DEXTROSE 50% SYRINGE 50 ML IV STA (12:50)
[2020-07-08] MEDS ORDERED: CALCIUM GLUCONATE 10% INJ 0.465 MEQ/ML VIAL IV STA (12:50)
[2020-07-08] MEDS ORDERED: SODIUM BICARBONATE 8.4% INJ 50 ML SYR IV STA (12:50)
[2020-07-08] MEDS ORDERED: INSULIN REGULAR, HUMAN 100 UNIT/1 ML 3ML VIAL IV STA (12:50)
[2020-07-08] MEDS ORDERED: CALCIUM GLUCONATE 10% INJ 0.465 MEQ/ML VIAL ONE (13:11)
--- NOTE | 2020-07-08 13:24 | NUR ---
called [facility] for transfer.
[2020-07-08] MEDS ORDERED: CALCIUM GLUCONATE 10% INJ 4.65 MEQ in SODIUM CHLORIDE 0.9% 50ML 50 ML IV ONE (13:30)
== END 2020-07-08 15:11 | disposition other institution (70) ==
LOC: ER 09:53
DX: I82.622 Acute embolism and thrombosis of deep veins of left upper extremity (principal); I72.8 Aneurysm of other specified arteries; M79.622 Pain in left upper arm; I12.0 Hypertensive chronic kidney disease with stage 5 chronic kidney disease or end stage renal disease; E11.22 Type 2 diabetes mellitus with diabetic chronic kidney disease; N18.6 End stage renal disease; Z99.2 Dependence on renal dialysis; Z98.84 Bariatric surgery status
CPT/HCPCS: 36415; 73060; 80053; 85025; 93005; 93931; 93971; 99285; J0610; J1817; J2270; J2405; J7799

== ENCOUNTER 2020-08-03 01:41 | Emergency (ER) | payer MEDICARE ==
[~2020-08-03] VITALS: Ht 144.8 cm; Wt 74.8 kg
[2020-08-03 04:21] VITALS: BP 100/57
== END 2020-08-03 04:36 ==
LOC: ER 01:55
DX: M25.511 Pain in right shoulder (principal); I12.0 Hypertensive chronic kidney disease with stage 5 chronic kidney disease or end stage renal disease; E11.22 Type 2 diabetes mellitus with diabetic chronic kidney disease; N18.6 End stage renal disease; Z99.2 Dependence on renal dialysis; G47.30 Sleep apnea, unspecified; Z98.84 Bariatric surgery status
CPT/HCPCS: 71250; 99283

== ENCOUNTER → 2020-08-16 | Outpatient (CLI) | payer MEDICARE ==
[~2020-08-16] MED LIST changes: +LIDOCAINE HCL 1% LOCAL INJ 20 ML VIAL ONE
== END ==
LOC: DX 13:03
PROVIDERS: ATTEND Internal Medicine
DX: A41.9 Sepsis, unspecified organism (principal); N18.6 End stage renal disease; R52 Pain, unspecified
CPT/HCPCS: 36589; J2001